=== PATIENT | female | born 1965 | race Caucasian/White ===

== ENCOUNTER → 2017-03-10 | Outpatient (CLI) | payer MEDICAID ==
[~2017-03-10] MED LIST: AC500T PO; ACET-77 PO; ALPR1TAB PO; AMLO10TA4 PO; AMLO5TAB2 PO; ARIPRAZOLE; ASPI-808 PO; AZIT500T2 PO; BACL20TA PO; CELE100C PO; CEPH-38 PO; CIPR100T PO; CIPR500T78 PO; CLIN150C2 PO; CLIN300C3 PO; CLINDAMYCIN; CLON0.1T; CLON0.5T3 PO; CLON1TAB2 PO; CLON1TAB3 PO; CLON2TAB3 PO; CPR500T PO; CYCL10TA9 PO; DIAZ-345 PO; DIAZ5TAB49 PO; DICL75TA2 PO; DICLOFENAC; DOCU-143 PO; DOCU100C37 PO; DXCC100C PO; DXZS2T PO; ENXP40I.4 SC; FAMO20TA5 PO; FENT1PAT9 TD; FLUO40CA12 PO; FURO20TA PO; FURO20TA4 PO; FURO40TA4 PO; HYDR-1231 PO; HYDR-2890 PO; HYDR-3720 PO; HYDR-707 PO; HYDR-757 PO; IBUP-15 PO; IMITREX; Imitrex; KCL20TCR PO; LISI40TA PO; LORA2ORA4 PO; MELO-195 PO; METH4TAB PO; METR500T PO; MINO100C6 PO; MINO50CA2 PO; MORP15TA PO; MPR22T TOP; MUPI22OI TP; NAPR-1071 PO; NAPR-243 PO; NITR-65 PO; ONDA4TAB11 PO; OXC5T PO; OXYC-465 PO; OXYC1TAB16 PO; OXYC5TAB71 PO; PHEN100T26 PO; PRD20T PO; PREG100C PO; PREG100C22 PO; PRM5C60 TP; Propranolol Hcl PO; SENN1TAB76 PO; SUMA100T2 PO; TRM50T PO; ZLP5T PO; [UNRECOGNIZED DRUG - REMARK]; gabapentin
== END ==
LOC: WOUNDCARE 09:54
PROVIDERS: ATTEND Surgery
DX: L89.893 Pressure ulcer of other site, stage 3 (principal); I89.0 Lymphedema, not elsewhere classified; R53.81 Other malaise
CPT/HCPCS: 11042

== ENCOUNTER → 2017-03-17 | Outpatient (CLI) | payer MEDICAID | LOC: WOUNDCARE 10:06 | PROVIDERS: ATTEND Surgery | DX: L89.893 Pressure ulcer of other site, stage 3 (principal); I89.0 Lymphedema, not elsewhere classified; R53.81 Other malaise | CPT/HCPCS: 11042; 87070; 87075; 87077; 87186; 87205 ==

== ENCOUNTER → 2017-03-24 | Outpatient (CLI) | payer MEDICAID | LOC: WOUNDCARE 09:57 | PROVIDERS: ATTEND Surgery | DX: L89.893 Pressure ulcer of other site, stage 3 (principal); I89.0 Lymphedema, not elsewhere classified; R53.81 Other malaise | CPT/HCPCS: 11042 ==

== ENCOUNTER → 2017-03-31 | Outpatient (CLI) | payer MEDICAID | LOC: WOUNDCARE 10:04 | PROVIDERS: ATTEND Surgery | DX: L89.893 Pressure ulcer of other site, stage 3 (principal); I89.0 Lymphedema, not elsewhere classified; R53.81 Other malaise | CPT/HCPCS: 11042 ==

== ENCOUNTER → 2017-04-07 | Outpatient (CLI) | payer MEDICAID | LOC: WOUNDCARE 10:04 | PROVIDERS: ATTEND Surgery | DX: L89.893 Pressure ulcer of other site, stage 3 (principal); I89.0 Lymphedema, not elsewhere classified; R53.81 Other malaise | CPT/HCPCS: 11042 ==

== ENCOUNTER → 2017-04-14 | Outpatient (CLI) | payer MEDICAID | LOC: WOUNDCARE 10:05 | PROVIDERS: ATTEND Surgery | DX: L97.212 Non-pressure chronic ulcer of right calf with fat layer exposed (principal); I87.311 Chronic venous hypertension (idiopathic) with ulcer of right lower extremity; L89.893 Pressure ulcer of other site, stage 3 | CPT/HCPCS: 11042 ==

== ENCOUNTER → 2017-04-21 | Outpatient (CLI) | payer MEDICAID | LOC: WOUNDCARE 09:59 | PROVIDERS: ATTEND Surgery | DX: I87.311 Chronic venous hypertension (idiopathic) with ulcer of right lower extremity (principal); L97.212 Non-pressure chronic ulcer of right calf with fat layer exposed; L89.893 Pressure ulcer of other site, stage 3 | CPT/HCPCS: 11042 ==

== ENCOUNTER → 2017-04-28 | Outpatient (CLI) | payer MEDICAID | LOC: WOUNDCARE 10:02 | PROVIDERS: ATTEND Surgery | DX: I87.311 Chronic venous hypertension (idiopathic) with ulcer of right lower extremity (principal); L97.212 Non-pressure chronic ulcer of right calf with fat layer exposed; L89.893 Pressure ulcer of other site, stage 3 | CPT/HCPCS: 99213 ==

== ENCOUNTER → 2017-12-25 | Outpatient (CLI) | payer MEDICAID ==
[~2017-12-25] MED LIST changes: -AMLO5TAB2 PO; +AMLO5TAB7 PO; +CLON0.5T13 PO; -CLON0.5T3 PO; +CLON1TAB13 PO; -CLON1TAB3 PO
--- NOTE | 2017-12-25 15:32 | Diagnostic Imaging Report ---
PROCEDURE: US Hepatic (Liver). TECHNIQUE: Multiple real-time grayscale images were obtained over the right upper quadrant in various projections. INDICATION: Chronic hepatitis C. FINDINGS: The liver appears to be normal in size at approximately 16 cm. There is some generalized increased echogenicity suggestive of hepatic steatosis. An area of hypoechogenicity in the left lobe is noted approximately 1 cm in size, indeterminate. This could represent an area of focal sparing. The gallbladder is without stones or sludge. No wall thickening is identified. Extrahepatic bile duct is somewhat prominent measuring 9 mm. No intrahepatic ductal dilatation is seen. Pancreas unremarkable. Right kidney is unremarkable. There is no ascites. IMPRESSION: 1. Hepatic steatosis. 2. No evidence of cholelithiasis or acute cholecystitis. The extrahepatic bile duct is mildly dilated at 9 mm. No other significant abnormality is seen. Dictated by: Dictated on workstation # [id number]
== END ==
LOC: RAD 10:08
PROVIDERS: ATTEND Pediatrics
DX: B18.2 Chronic viral hepatitis C (principal); K76.0 Fatty (change of) liver, not elsewhere classified; K83.8 Other specified diseases of biliary tract
CPT/HCPCS: 76705

== ENCOUNTER 2018-01-13 13:10 | Inpatient (IN) | payer MEDICAID ==
[~2018-01-13] VITALS: Ht 172.7 cm; Wt 93.5 kg
[~2018-01-13 13:10] MED LIST changes: -CLON0.1T; +CLON0.1T PO
--- OUTSIDE RECORDS SUMMARY | 2018-01-13 20:20 | XMS REPORT | Clinical Summary ---
Author Author [facility] Organization [facility] Address Unknown Phone Unavailable Care Team Providers Care Single Pointed Operator Name Role Phone PCP Unavailable Allergies Active Allergy Reactions Severity Noted Date Comments Sulfamethoxazole-Trimetho 04/01/2014 prim Penicillins 04/01/2014 Current Medications Prescription Sig. Disp. Refills Start End Date Status Date FLUoxetine (PROZAC) 40 MG Take 80 mg by mouth Active capsule daily. amLODIPine (NORVASC) 2.5 Take 2.5 mg by mouth Active MG tablet daily. pregabalin (LYRICA) 100 Take 100 mg by mouth 3 Active MG capsule (three) times a day. cyclobenzaprine Take 10 mg by mouth 3 Active (FLEXERIL) 10 MG tablet (three) times a day as needed for muscle spasms. diclofenac (VOLTAREN) 25 Take 25 mg by mouth 2 Active MG EC tablet (two) times a day. ARIPiprazole (ABILIFY) 2 Take 2 mg by mouth daily. Active MG tablet SUMAtriptan (IMITREX) 100 Take 100 mg by mouth Active MG tablet every 2 (two) hours as needed for migraine. Active Problems Not on file Social History Tobacco Use Types Packs/Day Years Used Date Never Smoker Smokeless Tobacco: Never Used Alcohol Use Drinks/Week oz/Week Comments No Sex Assigned at Date Recorded Not on file Last Filed Vital Signs Vital Sign Reading Time Taken Blood Pressure 136/62 04/02/2014 1:33 AM [employer]PRES[employer] Pulse 80 04/02/2014 1:33 AM [employer] Temperature 36.3 C (97.3 F) 04/01/2014 9:14 PM [employer]PRES[employer]IVE Respiratory Rate 16 04/01/2014 9:14 PM [employer] REPRES[employer]IVE Oxygen Saturation 100% 04/01/2014 9:14 PM [employer] REPRES[employer]IVE Inhaled Oxygen - - Concentration Weight 65.8 kg (145 lb) 04/01/2014 9:14 PM [employer]PRES[employer]IVE Height 170.2 cm (5' 7.01") 04/01/2014 9:14 PM [employer]ER [employer]TA[employer]PRES[employer]IVE Body Mass Index 22.7 04/01/2014 9:14 PM [employer]USTOMER [employer]TACT REPRESENTATIVE Plan of Treatment Not on file Results Not on filefrom Last 3 Months
--- OUTSIDE RECORDS SUMMARY | 2018-01-13 20:21 | XMS REPORT | Clinical Summary ---
Author Author [facility] Organization [facility] Address Unknown Phone Unavailable Care Team Providers Care Rehabilitation Specialist Name Role Phone Emergency, Nurse RN Unavailable Unavailable Miguelangel Cooley MD Unavailable Maria C Wood MD Unavailable Noemí Eastman RN Unavailable Unavailable Claudine Woody RN Unavailable Unavailable Noemy Navarrete RN Unavailable Unavailable Gloria Nguyen RN Unavailable Unavailable Noemí Ruiz RN Unavailable Unavailable Mita Newton APRN Unavailable Unavailable Cindy Singletary PA-C Unavailable Flor Pickard RN Unavailable Unavailable Felisha Mancuso RN Unavailable Unavailable Marge Mcpherson RN Unavailable Unavailable Isaias Esqueda RN Unavailable Unavailable Aggie Dawson MD Unavailable Chivo Harris MD Unavailable Jimmie Sutherland MD Unavailable Miguelangel Vaughn MD PCP Source Comments Some departments are not documenting in the electronic medical record. If you do not see the information that you expected, contact Release of Information in the Health Information Management department at [phone] for further assistance in locating additional records.[facility] Allergies Active Allergy Reactions Severity Noted Date Comments Sulfamethoxazole-Trimetho RASH Medium 06/05/2014 prim Penicillins RASH Medium 06/05/2014 Has tolerated Keflex in past per patient interview Current Medications Prescription Sig. Disp. Refills Start End Date Status Date FLUoxetine(+) (PROZAC) 40 Take 80 mg by mouth every Active mg capsule morning. sumatriptan (IMITREX) 100 Take 100 mg by mouth as Active mg tablet Needed for Migraine symptoms. fentaNYL (DURAGESIC) 50 Apply 1 Patch to top of Active mcg/hr patch skin as directed every 72 hours clonazePAM (KLONOPIN) 1 Take 1 mg by mouth three Active mg tablet times daily. pregabalin (LYRICA) 150 Take 150 mg by mouth Active mg capsule three times daily. aspirin 81 mg chewable Chew 81 mg by mouth Active tablet daily. Take with food. nabumetone (RELAFEN) 500 Take 500 mg by mouth Active mg tablet twice daily. bethanechol chloride Take 10 mg by mouth three Active (URECHOLINE) 10 mg tablet times daily. Take on an empty stomach at least 1 hour before or 2 hours after food. senna/docusate Take one tablet by mouth 30 tablet 1 01/14/20 Active (SENOKOT-S) 8.6/50 mg daily. 18 tablet amitriptyline HCl Apply thin layer to 50 g 0 01/14/20 Active (AMITRIPTYLINE/GABAPENTIN joints and areas of pain 18 /EMU OIL(#)) 4/4/10 % as needed up to twice daily cloNIDine (CATAPRESS) 0.1 Take one tablet by mouth 3 tablet 0 01/17/20 Active mg tablet at bedtime daily for 3 18 18 days. pregabalin (LYRICA) 100 Take 100 mg by mouth 01/10/20 Discontin mg capsule three times daily. 18 ued cyclobenzaprine Take 10 mg by mouth three 01/10/20 Discontin (FLEXERIL) 10 mg tablet times daily. 18 ued furosemide (LASIX) 20 mg Take 20 mg by mouth daily 01/14/20 Suspended tablet as needed. 18 cloNIDine HCl (CATAPRESS) Take 1 Tab by mouth twice 60 Tab 0 11/26/19 01/14/20 Suspended 0.1 mg tablet daily. Please follow up 15 18 with PCP regarding refilss docusate (COLACE) 100 mg Take 1 Cap by mouth twice 180 Cap 3 11/26/19 01/10/20 Discontin capsule daily. 15 18 ued ferrous sulfate (IRON) Take 650 mg by mouth 01/10/20 Discontin 325 mg (65 mg iron) daily. 18 ued tablet promethazine (PHENERGAN) Take 1 Tab by mouth every 30 Tab 0 01/10/20 01/10/20 Discontin 12.5 mg tablet 6 hours as needed for 15 18 ued Nausea. melatonin 3 mg tab Take 1 Tab by mouth at 02/02/20 01/10/20 Discontin bedtime daily. 15 18 ued aspirin 325 mg tablet Take 1 Tab by mouth 42 Tab 0 02/02/20 Discontin daily. Start this the day 15 18 ued after your final lovenox injection and continue for 6 weeks acetaminophen (TYLENOL) Take 2 Tabs by mouth 100 Tab 0 02/02/20 Discontin 325 mg tablet every 4 hours as needed. 15 18 ued oxyCODONE SR (OXYCONTIN) Earliest Fill Date: 17 Tab 0 02/02/2001/09 Discontin 10 mg tablet 02/01/15 Take 10mg by 15 18 ued mouth two times daily for 5 days then 10mg by mouth once daily for 7 days then stop promethazine (PHENERGAN) Take 25 mg by mouth every 01/14/20 Suspended 25 mg tablet 12 hours as needed for 18 Nausea or Vomiting. tiZANidine (ZANAFLEX) 4 Take 4 mg by mouth twice 01/14/20 Suspended mg tablet daily as needed. 18 cloNIDine (CATAPRESS) 0.1 Take one tablet by mouth 180 tablet 3 01/14/20 Discontin mg tablet at bedtime daily. 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[facility]) 01/25/2015 Osteomyelitis ([facility]) 01/25/2015 Draining postoperative wound 01/23/2015 Postoperative anemia due to acute blood loss 01/09/2015 Hip dislocation, right ([facility]) 10/25/2014 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 10/25/2014 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 Jaycee-prosthetic fracture around prosthetic joint(996.44) 09/23/2014 HTN (hypertension) 09/23/2014 Chronic pain 09/23/2014 Overview: 01/09/2018 2:56 PM Pain Mgmt RN Consult--please see Chart Review Pain in joint, pelvic region and thigh 06/29/2014 Other complications due to internal joint prosthesis 06/29/2014 Hip joint replacement by other means 06/29/2014 Resolved Problems Problem Noted Date Resolved Date Dislocation of hip prosthesis (HCC) 01/07/2015 01/09/2015 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 12/22/2014 Dislocated hip (HCC) 11/22/2014 11/25/2014 Encounters Date Type Specialty Care Team Description 01/13/2018 Procedure visit Anesthesia Pain Venkata Grossman MD Pain of left hip joint (Primary Dx); Arthritis of left hip 01/08/2018 [facility] Irene Chen MD Hip pain - Encounter Sugar Schwartz MD 01/13/2018 Noemy Mott MD Rouse, Michael, DO Haj Mahmoud, Khaldoun, MD 01/08/2018 Procedure Pass 01/08/2018 Procedure Pass from Last 3 Months Immunizations Name Dates Previously Given Next Due Flu Vaccine 12/22/2014 Quadrivalent=>3 Yo (Preservative Free) Hepatitis A vaccine Adult 01/30/2015 IM Family History Medical History Relation Name Comments Arthritis-rheumatoid Mother Cancer Mother Osteoporosis Mother Scoliosis Mother Stroke Mother Relation Name Status Comments Mother Alive Social History Tobacco Use Types Packs/Day Years Used Date Never Smoker Smokeless Tobacco: Never Used Tobacco Cessation: Counseling Given: Yes Alcohol Use Drinks/Week oz/Week Comments Yes one drink per month Sex Assigned at Date Recorded Not on file Last Filed Vital Signs Vital Sign Reading Time Taken Blood Pressure 133/89 01/13/2018 4:14 PM MECHANICAL PROJECT MANAGER Pulse 83 01/13/2018 10:35 AM MECHANICAL PROJECT MANAGER Temperature 36.3 C (97.3 F) 01/13/2018 10:35 AM MECHANICAL PROJECT MANAGER Respiratory Rate 20 05/10/2015 11:28 AM CDT Oxygen Saturation 98% 01/13/2018 4:14 PM MECHANICAL PROJECT MANAGER Inhaled Oxygen - - Concentration Weight 90.7 kg (200 lb) 01/13/2018 3:26 PM MECHANICAL PROJECT MANAGER Height 172.7 cm (5' 8") 01/13/2018 3:26 PM MECHANICAL PROJECT MANAGER Body Mass Index 30.41 01/13/2018 3:26 PM MECHANICAL PROJECT MANAGER Plan of Treatment Health Maintenance Due Date Last Done Comments PHYSICAL (COMPREHENSIVE) 1974 EXAM DTAP/TDAP VACCINES (1 - 1985 Tdap) CERVICAL CANCER SCREENING 1997 BREAST CANCER SCREENING 2007 COLORECTAL CANCER 2017 SCREENING SHINGLES RECOMBINANT 2017 VACCINE (1 of 2) INFLUENZA VACCINE 09/10/2017 12/22/2014 HIV SCREENING Completed 05/10/2015, 01/25/2015 Procedures Procedure Name Priority Date/Time Associated Diagnosis Comments FLUORO GUIDANCE FOR INJ Routine 01/13/2018 Hip pain, left Results for this RAD 4:15 PM MECHANICAL PROJECT MANAGER procedure are in the results section. CHG FLUOROSCOPIC GUIDANCE Routine 01/13/2018 Pain of left hip joint Results for this NEEDLE PLACEMENT ADD ON 2:00 PM MECHANICAL PROJECT MANAGER Arthritis of left hip procedure are in the results section. MI ARTHROCENTESIS Routine 01/13/2018 Pain of left hip joint Results for this ASPIR&/INJ MAJOR JT/BURSA 2:00 PM MECHANICAL PROJECT MANAGER Arthritis of left hip procedure are in the W/O US results section. CBC Routine 01/13/2018 Results for this 5:17 AM MECHANICAL PROJECT MANAGER procedure are in the results section. BASIC METABOLIC PANEL Routine 01/13/2018 Results for this 5:17 AM MECHANICAL PROJECT MANAGER procedure are in the results section. MAGNESIUM Routine 01/12/2018 Results for this 6:31 AM MECHANICAL PROJECT MANAGER procedure are in the results section. COMPREHENSIVE METABOLIC Routine 01/12/2018 Results for this PANEL 6:31 AM MECHANICAL PROJECT MANAGER procedure are in the results section. CBC AND DIFF Routine 01/12/2018 Results for this 6:31 AM MECHANICAL PROJECT MANAGER procedure are in the results section. MAGNESIUM Routine 01/11/2018 Results for this 5:15 AM MECHANICAL PROJECT MANAGER procedure are in the results section. COMPREHENSIVE METABOLIC Routine 01/11/2018 Results for this PANEL 5:15 AM MECHANICAL PROJECT MANAGER procedure are in the results section. CBC AND DIFF Routine 01/11/2018 Results for this 5:15 AM MECHANICAL PROJECT MANAGER procedure are in the results section. MAGNESIUM Routine 01/10/2018 Results for this 4:13 AM MECHANICAL PROJECT MANAGER procedure are in the results section. COMPREHENSIVE METABOLIC Routine 01/10/2018 Results for this PANEL 4:13 AM MECHANICAL PROJECT MANAGER procedure are in the results section. CBC AND DIFF Routine 01/10/2018 Results for this 4:13 AM MECHANICAL PROJECT MANAGER procedure are in the results section. HEPATITIS C VIRAL LOAD Routine 01/09/2018 Results for this PCR QUANT 11:51 AM MECHANICAL PROJECT MANAGER procedure are in the results section. MAGNESIUM Routine 01/09/2018 Results for this 4:39 AM MECHANICAL PROJECT MANAGER procedure are in the results section. COMPREHENSIVE METABOLIC Routine 01/09/2018 Results for this PANEL 4:39 AM MECHANICAL PROJECT MANAGER procedure are in the results section. CBC AND DIFF Routine 01/09/2018 Results for this 4:39 AM MECHANICAL PROJECT MANAGER procedure are in the results section. IRON + BINDING CAPACITY + Routine 01/08/2018 Results for this %SAT+ FERRITIN 10:50 PM MECHANICAL PROJECT MANAGER procedure are in the results section. TSH WITH FREE T4 REFLEX Routine 01/08/2018 Results for this 10:50 PM MECHANICAL PROJECT MANAGER procedure are in the results section. HEMOGLOBIN A1C Routine 01/08/2018 Results for this 10:50 PM MECHANICAL PROJECT MANAGER procedure are in the results section. LIPID PROFILE Routine 01/08/2018 Results for this 10:50 PM MECHANICAL PROJECT MANAGER procedure are in the results section. PHOSPHORUS Routine 01/08/2018 Results for this 10:50 PM MECHANICAL PROJECT MANAGER procedure are in the results section. PTT (APTT) Routine 01/08/2018 Results for this 10:50 PM MECHANICAL PROJECT MANAGER procedure are in the results section. PROTIME INR (PT) Routine 01/08/2018 Results for this 10:50 PM MECHANICAL PROJECT MANAGER procedure are in the results section. OPIATES 300 OR STAT 01/08/2018 Results for this GREATER-URINE RANDOM 8:30 PM MECHANICAL PROJECT MANAGER procedure are in the results section. OXYCODONE URINE SCREEN STAT 01/08/2018 Results for this 8:30 PM MECHANICAL PROJECT MANAGER procedure are in the results section. METHADONE-URINE SCREEN STAT 01/08/2018 Results for this 8:30 PM MECHANICAL PROJECT MANAGER procedure are in the results section. PHENCYCLIDINES-URINE STAT 01/08/2018 Results for this RANDOM 8:30 PM MECHANICAL PROJECT MANAGER procedure are in the results section. COCAINE-URINE RANDOM STAT 01/08/2018 Results for this 8:30 PM MECHANICAL PROJECT MANAGER procedure are in the results section. CANNABINOIDS-URINE RANDOM STAT 01/08/2018 Results for this 8:30 PM MECHANICAL PROJECT MANAGER procedure are in the results section. BENZODIAZEPINES-URINE STAT 01/08/2018 Results for this RANDOM 8:30 PM MECHANICAL PROJECT MANAGER procedure are in the results section. BARBITURATES-URINE RANDOM STAT 01/08/2018 Results for this 8:30 PM MECHANICAL PROJECT MANAGER procedure are in the results section. AMPHETAMINES-URINE RANDOM STAT 01/08/2018 Results for this 8:30 PM MECHANICAL PROJECT MANAGER procedure are in the results section. CULTURE-URINE Routine 01/08/2018 Results for this W/SENSITIVITY 8:30 PM MECHANICAL PROJECT MANAGER procedure are in the results section. URINALYSIS, MICROSCOPIC STAT 01/08/2018 Results for this 4:51 PM MECHANICAL PROJECT MANAGER procedure are in the results section. URINALYSIS DIPSTICK STAT 01/08/2018 Results for this 4:51 PM MECHANICAL PROJECT MANAGER procedure are in the results section. CT ABD/PELV WO CONTRAST STAT 01/08/2018 Results for this 3:49 PM MECHANICAL PROJECT MANAGER procedure are in the results section. CT HEAD WO CONTRAST STAT 01/08/2018 Results for this 3:49 PM MECHANICAL PROJECT MANAGER procedure are in the results section. COMPREHENSIVE METABOLIC STAT 01/08/2018 Results for this PANEL 2:50 PM MECHANICAL PROJECT MANAGER procedure are in the results section. CBC AND DIFF STAT 01/08/2018 Results for this 2:50 PM MECHANICAL PROJECT MANAGER procedure are in the results section. from Last 3 Months Results * FLUORO GUIDANCE FOR INJ RAD (01/13/2018 4:15 PM) Narrative Performed At This order has been auto finalized and does not contain a result. [facility] RAD Performing Organization Address [facility] Phone Number ZENIA [facility] * KU AMB SPINE LARGE JOINT DRAIN/INJECT PROC (01/13/2018 2:00 PM) Narrative Performed At Venkata Grossman MD 01/13/20184:53 PM OTHER OUTSIDE LAB Large Joint Injection Location: hip L hip joint Consent: Consent obtained: written Consent given by: patient Risks discussed: damage to surrounding structures, hyperglycemia, pain and soft tissue reaction Discussed with patient the purpose of the treatment/procedure, other ways of treating my condition, including no treatment/ procedure and the risks and benefits of the alternatives. Patient has decided to proceed with treatment/procedure. [place] Protocol: Relevant documents: relevant documents present and verified Test results: test results available and properly labeled Imaging studies: imaging studies available Required items: required blood products, implants, devices, and special equipment available Site marked: the operative site was marked Patient identity confirmed: Patient identify confirmed verbally with patient. Time out: Immediately prior to procedure a "time out" was called to verify the correct patient, procedure, equipment, customer support engineer and site/side marked as required Procedures Details: Indications: pain Prep: 2% chlorhexidine Guidance: fluoroscopy Needle size: 25 G Approach: anterior Patient tolerance: Patient tolerated the procedure well with no immediate complications. Pressure was applied, and hemostasis was accomplished. Comments: 40mg triamcinolone and 3ml bupivacaine 0.5% injected Performing Organization Address [facility] Phone Number OTHER OUTSIDE LAB * CBC (01/13/2018 5:17 AM) White Blood Cells 6.6 4.5 - 11.0 K/UL MAIN LAB RBC 3.85 (L) 4.0 - 5.0 M/UL KU MAIN LAB Hemoglobin 10.1 (L) 12.0 - 15.0 GM/DL KU MAIN LAB Hematocrit 31.1 (L) 36 - 45 % [facility] MAIN LAB MCV 80.8 80 - 100 FL MAIN LAB MCH 26.1 26 - 34 PG [facility] MAIN LAB MCHC 32.4 32.0 - 36.0 G/DL MAIN LAB RDW 15.9 (H) 11 - 15 % KU MAIN LAB Platelet Count 412 (H) 150 - 400 K/UL MAIN LAB MPV 7.4 7 - 11 FL MAIN LAB Specimen Blood Performing Organization Address [facility] Phone Number MAIN LAB [address] [place] [address] * BASIC METABOLIC PANEL (01/13/2018 5:17 AM) Sodium 135 (L) 137 - 147 MMOL/L KU MAIN LAB Potassium 4.0 3.5 - 5.1 MMOL/L [facility] MAIN LAB Chloride 102 98 - 110 MMOL/L [facility] MAIN LAB CO2 25 21 - 30 MMOL/L [facility] MAIN LAB Anion Gap 8 3 - 12 [facility] MAIN LAB Glucose 114 (H) 70 - 100 MG/DL K[facility] MAIN LAB Blood Urea Nitrogen 13 7 - 25 MG/DL MAIN LAB Creatinine 0.69 0.4 - 1.00 MG/DL MAIN LAB Calcium 9.3 8.5 - 10.6 MG/DL MAIN LAB eGFR Non >60 >60 mL/min [facility] MAIN LAB Comment: The eGFR is not validated for use in drug dosing adjustments.Continue to use estimated creatinine clearance per dosing reference text.Please contact the Clinical Pharmacist for questions. eGFR >60 >60 mL/min KU MAIN LAB Comment: The eGFR is not validated for use in drug dosing adjustments.Continue to use estimated creatinine clearance per dosing reference text.Please contact the Clinical Pharmacist for questions. Specimen Blood Performing Organization Address City/[facility] Phone Number [facility] [address] [place] [address] * CBC AND DIFF (01/12/2018 6:31 AM) Only the most recent of 5 results within the time period is included. White Blood Cells 6.6 4.5 - 11.0 K/UL KU MAIN LAB RBC 3.87 (L) 4.0 - 5.0 M/UL K[facility] MAIN LAB Hemoglobin 10.0 (L) 12.0 - 15.0 GM/DL KU MAIN LAB Hematocrit 31.0 (L) 36 - 45 % KU MAIN LAB MCV 80.1 80 - 100 FL MAIN LAB MCH 25.9 (L) 26 - 34 PG [facility]U MAIN LAB MCHC 32.3 32.0 - 36.0 G/DL K[facility] MAIN LAB RDW 15.7 (H) 11 - 15 % [facility] MAIN LAB Platelet Count 390 150 - 400 K/UL MAIN LAB MPV 7.5 7 - 11 FL KU MAIN LAB Neutrophils 57 41 - 77 % [facility] MAIN LAB Lymphocytes 31 24 - 44 % [facility] MAIN [facility] Monocytes 9 4 - 12 % [facility] MAIN LAB Eosinophils 2 0 - 5 % [facility] MAIN LAB Basophils 1 0 - 2 % [facility] MAIN LAB Absolute Neutrophil Count 3.80 1.8 - 7.0 K/UL KU MAIN LAB Absolute Lymph Count 2.00 1.0 - 4.8 K/UL K[facility] MAIN LAB Absolute Monocyte Count 0.60 0 - 0.80 K/UL K[facility] MAIN LAB Absolute Eosinophil Count 0.10 0 - 0.45 K/UL K[facility] MAIN LAB Absolute Basophil Count 0.00 0 - 0.20 K/UL KU MAIN LAB Specimen Blood Performing Organization Address City/[facility]/Zipcode Phone Number MAIN LAB [address] [place] [address] * MAGNESIUM (01/12/2018 6:31 AM) Only the most recent of 4 results within the time period is included. Magnesium 1.9 1.6 - 2.6 mg/dL KU MAIN LAB Specimen Blood Performing Organization Address City/[facility]/Zipcode Phone Number [facility] [address] [place] [address] * COMPREHENSIVE METABOLIC PANEL (01/12/2018 6:31 AM) Only the most recent of 5 results within the time period is included. Sodium 136 (L) 137 - 147 MMOL/L [facility] MAIN LAB Potassium 4.1 3.5 - 5.1 MMOL/L MAIN LAB Chloride 103 98 - 110 MMOL/L [facility] MAIN LAB Glucose 103 (H) 70 - 100 MG/DL [facility] MAIN LAB Blood Urea Nitrogen 12 7 - 25 MG/DL [facility] MAIN LAB Creatinine 0.79 0.4 - 1.00 MG/DL [facility] MAIN LAB Calcium 9.0 8.5 - 10.6 MG/DL [facility] MAIN LAB Total Protein 8.0 6.0 - 8.0 G/DL [facility] MAIN LAB Total Bilirubin 0.3 0.3 - 1.2 MG/DL K[facility] MAIN LAB Albumin 2.7 (L) 3.5 - 5.0 G/DL [facility] MAIN LAB Alk Phosphatase 119 (H) 25 - 110 U/L K[facility] MAIN LAB AST (SGOT) 18 7 - 40 U/L [facility] MAIN LAB CO2 27 21 - 30 MMOL/L [facility] MAIN LAB ALT (SGPT) 10 7 - 56 U/L [facility] MAIN LAB Anion Gap 6 3 - 12 [facility] MAIN LAB eGFR Non >60 >60 mL/min [facility] MAIN [facility] Comment: The eGFR is not validated for use in drug dosing adjustments.Continue to use estimated creatinine clearance per dosing reference text.Please contact the Clinical Pharmacist for questions. eGFR >60 >60 mL/min [facility] MAIN LAB Comment: The eGFR is not validated for use in drug dosing adjustments.Continue to use estimated creatinine clearance per dosing reference text.Please contact the Clinical Pharmacist for questions. Specimen Blood Performing Organization Address City/[facility]/Zipcode Phone Number [facility] [address] [place] [address] * HEPATITIS C VIRAL LOAD PCR QUANT (01/09/2018 11:51 AM) Hepatitis C PCR HCV RNA Not Detected, <12 <12 IU/ML [facility] Quantitative IU/mL Comment: The test method detects HCV viral load using the Gary RealTime assay. Please correlate results with the clinical status of the patient. Log 10 HCV <1.08 <1.08 IU/mL [facility] Specimen Blood Performing Organization Address City/[facility]/Zipcode Phone Number [facility] [address] [place] [address] * IRON + BINDING CAPACITY + %SAT+ FERRITIN (01/08/2018 10:50 PM) Iron 16 (L) 50 - 160 MCG/DL [facility] MAIN LAB Iron Binding-TIBC 250 (L) 270 - 380 MCG/DL [facility] MAIN [facility] % Saturation 6 (L) 28 - 42 % [facility] MAIN LAB Ferritin 145 10 - 200 NG/ML [facility] MAIN LAB Specimen Blood Performing Organization Address [facility] Phone Number [facility] [address] [place] [address] * TSH WITH FREE T4 REFLEX (01/08/2018 10:50 PM) TSH 0.740 0.35 - 5.00 MCU/ML [facility] MAIN LAB Specimen Blood Performing Organization Address [facility] Phone Number [facility] [address] [place] [address] * PTT (APTT) (01/08/2018 10:50 PM) APTT 20.2 20.0 - 36.0 SEC MAIN LAB Specimen Blood Performing Organization Address [facility] Phone Number MAIN LAB [address] [place] [address] * PROTIME INR (PT) (01/08/2018 10:50 PM) INR 1.4 (H) 0.8 - 1.2 MAIN LAB Specimen Blood Performing Organization Address [facility] Phone Number [facility] MAIN [facility] [address] [place] [address] * PHOSPHORUS (01/08/2018 10:50 PM) Phosphorus 4.1Comment: NOTE NEW REFERENCE 2.0 - 4.5 MG/DL [facility] MAIN LAB RANGES Specimen Blood Performing Organization Address [facility] Phone Number MAIN LAB [address] [place] [address] * HEMOGLOBIN A1C (01/08/2018 10:50 PM) Hemoglobin A1C 5.4 4.0 - 6.0 % [facility] MAIN LAB Comment: The ADA recommends that most patients with type 1 and type 2 diabetes maintain an A1c level <7%. Specimen Blood Performing Organization Address [facility] Phone Number MAIN LAB [address] [place] [address] * LIPID PROFILE (01/08/2018 10:50 PM) Cholesterol 103 <200 MG/DL [facility] MAIN LAB Triglycerides 67 <150 MG/DL [facility] MAIN [facility] HDL 22 (L) >40 MG/DL [facility] MAIN [facility] LDL 65 <100 MG/DL [facility] MAIN [facility] VLDL 13 MG/DL [facility] MAIN [facility] Non HDL Cholesterol 81 MG/DL [facility] MAIN LAB Comment: Calculated non-HDL Cholesterol (non-HDL-C) indirectly measures LDL-C, Lp(a), IDL-C, and VLDL-C.It is a surrogate marker for Apoprotein B.Goal should be less than 130 mg/dL. Specimen Blood Performing Organization Address [facility] Phone Number [facility] [address] [place] [address] * OPIATES 300 OR GREATER-URINE RANDOM (01/08/2018 8:30 PM) Opiates 300 NEG NEG-NEG MAIN LAB Comment: RESULTS WERE OBTAINED BY IMMUNOASSAY AND ARE PRESUMPTIVE ONLY. POSITIVE INDICATES THE PRESENCE OF SUBSTANCE WITH CHARACTERISTICS SIMILAR TO DRUG-DRUG CLASS OR METABOLITE IN CONC. EQUAL TO OR EXCEEDING VALUES LISTED. OPIATES 300 NG/ML Specimen Urine Performing Organization Address [facility] Phone Number [facility] [address] [place] [address] * METHADONE-URINE SCREEN (01/08/2018 8:30 PM) Methadone NEG NEG-NEG MAIN LAB Comment: RESULTS WERE OBTAINED BY IMMUNOASSAY AND ARE PRESUMPTIVE ONLY. POSITIVE INDICATES THE PRESENCE OF SUBSTANCE WITH CHARACTERISTICS SIMILAR TO DRUG-DRUG CLASS OR METABOLITE IN CONC. EQUAL TO OR EXCEEDING VALUES LISTED. METHADONE 300 NG/ML Specimen Urine Performing Organization Address [facility] Phone Number [facility] [address] [place] [address] * PHENCYCLIDINES-URINE RANDOM (01/08/2018 8:30 PM) Phencyclidine (PCP) NEG NEG-NEG MAIN LAB Comment: RESULTS WERE OBTAINED BY IMMUNOASSAY AND ARE PRESUMPTIVE ONLY. POSITIVE INDICATES THE PRESENCE OF SUBSTANCE WITH CHARACTERISTICS SIMILAR TO DRUG-DRUG CLASS OR METABOLITE IN CONC. EQUAL TO OR EXCEEDING VALUES LISTED. PHENCYCLIDINE (PCP)25 NG/ML Specimen Urine - Urine Performing Organization Address [facility] Phone Number [facility] [address] [place] [address] * OXYCODONE URINE SCREEN (01/08/2018 8:30 PM) Oxycodone, Urine NEG NEG-NEG MAIN LAB Comment: RESULTS WERE OBTAINED BY IMMUNOASSAY AND ARE PRESUMPTIVE ONLY. POSITIVE INDICATES THE PRESENCE OF SUBSTANCE WITH CHARACTERISTICS SIMILAR TO DRUG-DRUG CLASS OR METABOLITE IN CONC. EQUAL TO OR EXCEEDING VALUES LISTED. OXYCODONE 300 NG/ML Specimen Urine - Urine Performing Organization Address [facility] Phone Number MAIN LAB [address] [place] [address] * COCAINE-URINE RANDOM (01/08/2018 8:30 PM) Cocaine-Urine NEG NEG-NEG MAIN LAB Comment: RESULTS WERE OBTAINED BY IMMUNOASSAY AND ARE PRESUMPTIVE ONLY. POSITIVE INDICATES THE PRESENCE OF SUBSTANCE WITH

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
--- OUTSIDE RECORDS SUMMARY | 2018-01-13 20:23 | XMS REPORT | Encounter Summary ---
Author Author [facility] Organization [facility] Address Unknown Phone Unavailable Care Team Providers Care Medical Malpractice Paralegal Name Role Phone Emergency, Nurse RN Unavailable [...] Sutherland MD Unavailable Miguelangel Vaughn MD PCP Encounter Details Date Type Department Care Team Description 01/08/2018 Procedure Pass [facility] [address] [place] [address] Social History Tobacco Use Types Packs/Day Years Used Date Never Smoker Smokeless Tobacco: Never Used Alcohol Use Drinks/Week oz/Week Comments Yes one drink per month Sex Assigned at Date Recorded Not on file as of this encounter Functional Status Functional Status Response Date of Assessment Does the patient have a hearing impairment: No 01/08/2018 Does the patient have a visual impairment: No 2015 Does the patient have impaired ambulation: No 2015 Does the patient have an activity of daily living Yes 2015 (ADL) impairment: Does the patient have an instrumental activity of Yes 2015 daily living (IADL) impairment: Cognitive Status Response Date of Assessment Does the patient have a cognitive impairment: No 2015 as of this encounter Plan of Treatment Not on fileas of this encounter Visit Diagnoses Not on filein this encounter
--- OUTSIDE RECORDS SUMMARY | 2018-01-13 20:23 | XMS REPORT | Encounter Summary ---
Author Author [facility] Organization [facility] Address Unknown Phone Unavailable Care Team Providers Care Dog Sitter Name Role Phone Emergency, Nurse RN Unavailable [...] [facility] [address] [place] [address] Social History Tobacco Use Types Packs/Day Years [...]
--- OUTSIDE RECORDS SUMMARY | 2018-01-13 20:23 | XMS REPORT | Encounter Summary ---
Author Author [facility] Organization [facility] Address Unknown Phone Unavailable Care Team Providers Care Cord Splicer Name Role Phone Emergency, Nurse RN Unavailable Unavailable Wyatt Cooley MD Unavailable Maria C Wood MD [...] Harris MD Unavailable Jimmie Sutherland MD Unavailable Wyatt Vaughn MD PCP Reason for Visit * Reason Comments Fall States she fell in the shower today hitting her face and now her hips hurt. * Auth/Cert Status Reason Specialty Diagnoses / Referred By Referred To Procedures Contact Contact Diagnoses Hip pain Falls frequently Encounter Details Date Type Department Care Team Description 01/08/2018 [facility] CARDIAC AND FAMILY Irene Chen MD Hip pain - Encounter MEDICINE PROGRESSIVE CARE [address] 01/13/[address] [place] [address] [place] [address] [phone] Sugar Leone MD [address] [facility] [address] [place] [address] [phone] Noemy Bran MD [address] [facility] [address] [place] [address] [phone] Harjinder Petersen DO [address] [facility] [address] [place] [address] [phone] Randy Morrison MD [address] [facility] [address] [place] [address] [phone] Social History Tobacco Use Types Packs/Day Years Used Date Never Smoker Smokeless Tobacco: Never Used Alcohol Use Drinks/Week oz/Week Comments Yes one drink per month Sex Assigned at Date Recorded Not on file as of this encounter Last Filed Vital Signs Vital Sign Reading Time Taken Blood Pressure 115/80 01/13/2018 10:35 AM SOLAR [employer]OT[employer] ENGINEER Pulse 83 01/13/2018 10:35 AM SOLAR PHOTOVOL[employer]IC SYSTEMS ENGINEER Temperature 36.3 C (97.3 F) 01/13/2018 10:35 AM SOLAR PHOTOVOLTAIC SYSTEMS ENGINEER Respiratory Rate - - Oxygen Saturation 96% 01/13/2018 10:35 AM SOLAR PHOTOVOLTAIC SYSTEMS ENGINEER Inhaled Oxygen - - Concentration Weight 94.7 kg (208 lb 12.4 oz) 01/09/2018 5:30 AM SOLAR PHOTOVOLTAIC SYSTEMS ENGINEER Height 172.7 cm (5' 8") 01/08/2018 8:09 PM SOLAR PHOTOVOLTAIC SYSTEMS ENGINEER Body Mass Index 31.74 01/09/2018 5:30 AM SOLAR PHOTOVOLTAIC SYSTEMS ENGINEER in this encounter Functional Status Functional Status [...] impairment: No 01/13/2018 as of this encounter Medications at Time of Discharge Medication Sig. Disp. Refills Start Date End Date amitriptyline HCl Apply thin layer to 50 g 0 01/13/2018 (AMITRIPTYLINE/GABAPENTIN joints and areas of pain /EMU OIL(#)) 4/4/10 % as needed up to twice daily aspirin 81 mg chewable Chew 81 mg by mouth tablet daily. Take with food. bethanechol chloride Take 10 mg by mouth three (URECHOLINE) 10 mg tablet times daily. Take on an empty stomach at least 1 hour before or 2 hours after food. clonazePAM (KLONOPIN) 1 Take 1 mg by mouth three mg tablet times daily. cloNIDine (CATAPRESS) 0.1 Take one tablet by mouth 3 tablet 0 201701/16/2018 mg tablet at bedtime daily for 3 days. fentaNYL (DURAGESIC) 50 Apply 1 Patch to top of mcg/hr patch skin as directed every 72 hours FLUoxetine(+) (PROZAC) 40 Take 80 mg by mouth every mg capsule morning. nabumetone (RELAFEN) 500 Take 500 mg by mouth mg tablet twice daily. pregabalin (LYRICA) 150 Take 150 mg by mouth mg capsule three times daily. senna/docusate Take one tablet by mouth 30 tablet 1 01/13/2018 (SENOKOT-S) 8.6/50 mg daily. tablet sumatriptan (IMITREX) 100 Take 100 mg by mouth as mg tablet Needed for Migraine symptoms. as of this encounter Progress Notes * Erasmo Mccoy RN - 01/13/2018 6:33 PM SOLAR PHOTOVOLTAIC SYSTEMS ENGINEER Asif Horta discharged on 01/13/2018. . Discharge instructions reviewed with patient. Valuables returned: Personal Items / Valuables: Clothing, Luggage, Eyeglasses/Contacts, Cell Phone, Electronics Electronic Devices: Side Door Worker. Home medications: . Functional assessment at discharge complete: Yes . Patient left unit via transport in wheelchair. Room swept prior to discharge. PIVs removed. AVS signed and placed in chart. Report called to [facility]. * Chraly Rivas, PT - 01/13/2018 3:32 PM SOLAR PHOTOVOLTAIC SYSTEMS ENGINEER PHYSICAL THERAPY NOTE Patient was unavailable for physical therapy. Patient off the floor at this time. Physical therapy will continue to follow and provide intervention as indicated. Therapist: Charly Rivas PT, DPT Date: 01/13/2018 * Marin Loya MD - 01/12/2018 10:31 AM SOLAR PHOTOVOLTAIC SYSTEMS ENGINEER Formatting of this note may be different from the original. General Progress Note Today's Date: 01/12/2018 Name: Asif Horta Age: 52 y.o. Admission Date: 01/08/2018 LOS: 5 Assessment Active Problems: Hip pain Falls frequently Asif Horta is a 52 y.o. 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 Interval changes: Ongoing discharge plan with PT. Pain fluctuating. Anesthesia pain to administer steroid injections tomorrow (holding lovenox). Restarted GUNNER'S MATE nabumetone. 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 - GUNNER'S MATE regimen: Clonazepam 1mg TID, Clonidine 0.1mg BID, Fentanyl patch 50mcg daily, Lyrica 150mg TIDmg, Tizanidine 4mg BID, Nabumetone 500mg TID - CT head in the ED unremarkable - CT A/P without obstruction, inflammation, acute fracture, prior bilateral Girdlestone with chronic bilateral hip effusion and synovitis Plan > continue GUNNER'S MATE Clonazepam, Clonidine, Fentanyl patch, Lyrica > DC Tizanidine > Resume nabumetone at Qday > PT/OT consult > pt made progress on goals but still hasn't walked in years > moderate assist w/ mob and contact assist for transfers > Recommends inpt vs home setting > Anesthesia chronic pain consulted > hold lovenox 01/13 > [facility] for [facility] hip injection tomorrow > cash management clerk consulted > A-K pad to pain max 20min ON and min 20min OFF > start amitriptyline/gabapentin/emu oil(#) 4/4/10% topical cream > lidocaine patches likely unbenefical given depth of pain > Goal is reduce inflammation. consider Diclofenac, additional tylenol. May consider 5-7 day course of meloxicam w/ loading dose on day 1 and 7.5mg the other days, or steroids > could rec short acting opioid. Pt has discussed w/ PCP/prescriber Dr Vaughn , and he did not start one. Starting one now in an acute care setting would not ensure that we are impacting her longwall foreman care unless discussed with Dr. Vaughn and it is known that he is okay with continuing it. > Patient shares with me that at times she may not take clonazepam, clonidine, or cyclobenzaprine daily. But she indicates there is no correlation to days in which she does take them and falls. 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 - has ortho appointment in March #Anxiety #History of substance abuse - Chronically takes Klonopin, will continue to prevent withdrawals - Prozac 80mg - UDS +benzodiazepines (prescribed) Plan > continue GUNNER'S MATE Clonazepam, Clonidine. Patient not ready to decrease or remove clonazepam as it helps with her "bipolar, polypolar moods" > continue GUNNER'S MATE Prozac > consider psychiatry referral outpatient for medication optimization. Consider CBT for pain and/or anxiety out of concern for PTSD and JOSEPH being tied to pain. See conversation on 01/12 progress note #UTI (treated) - suprapubic pain - UA with WBC 2-10, Leuks positive, Nitrite +, few bacteria - Ucx negative - s/p rocephin 3 days #ALISSA (resolved) - Likely pre-renal etiology given history of poor intake - Creatinine 1.05 -> 0.86 after fluids Plan > Encourage PO intake #Decreased appetite with nausea #Dehydration - May be related to Saxenda with increased dose the last 2 week - s/p 1L LR Plan > Hold Saxenda > Encourage PO intake #Microcytic anemia - Patient chronically anemic, on admission Hgb 10.1 - iron studies abnormal, c/w anemic of chronic disease Plan > monitor #Chronic hepatitis C - F/U viral load, med rec #HTN - GUNNER'S MATE clonidine #Constipation - senokot-s PPX: IVF: none Electrolytes: replacing PRN Diet: DIET regular Lines:PIV Drains/Tubes:None Indwelling Urinary Catheter: No DVT:lovenox GI:Protonix PT/OT: Yes Code Status: Full Code Disposition: continue admit to med 3. Per PT recs and patient insurance, SW will require some time to arrange SNF Patient seen and discussed with Dr. Mary Loya MD PGY1 Prelim Resident Pager: [phone] Subjective Asif Horta had NAEO. She says she feels better as her pain seems caught up with. She describes how her pain can get into a "cycle" and she gets stuck in a rut. She tries to limit her pain meds at times until her pain swells up in the cycle. She says that then she gets caught up in crying and trying to manage her pain. She tries to journal on her pain as well. She finds some relief /solace in the magical belief that her pain may be sparing someone else somewhere. She wonders "what she has done" to deserve her pain and comments some on her troubled life and her turn around these last years. She limits her sharing with giving the sense that she may be holding onto emotional pain which may be worsening her physical pain. She does say a few times that she feels her medications may be too much and that she can reduce them; however she finds benefit from "lyrica", and "neurontin", and "klonipin". She is not wanting to change those at this time. We discuss how the klonipin may not be optimal for her case. We discuss how as she ages, even though dosing doesn't change, our bodies/metabolism change how the drugs we take affect us and at some point Klonipin may be dangerous. She says she can understand that and will think on it. We discuss that we will resume her NSAID medication after getting her leg manipulated today and planning for steroid injection tomorrow. We discuss again how we want to treatments "for her" and not "to her". We discuss how she needs to think of her treatment as moving towards a "functional goal" and have a purpose for her and not just to have medications. She denies f/c, chest pain, SOB, stomach pain, numbness, tingling. Objective Medications Scheduled Meds: amitriptyline/gabapentin/emu oil(#) 4/4/10 % topical cream Topical Q8H aspirin chewable tablet 81 mg 81 mg Oral QDAY bethanechol chloride (URECHOLINE) tablet 10 mg 10 mg Oral TID clonazePAM (KLONOPIN) tablet 1 mg 1 mg Oral TID cloNIDine (CATAPRESS) tablet 0.1 mg 0.1 mg Oral BID fentaNYL (DURAGESIC) 50 mcg/hr patch 1 patch 1 patch Transdermal Q72H* fluoxetine (PROZAC) capsule 80 mg 80 mg Oral QDAY melatonin tablet 3 mg 3 mg Oral QHS pregabalin (LYRICA) capsule 150 mg 150 mg Oral TID senna/docusate (SENOKOT-S) tablet 1 tablet 1 tablet Oral BID Continuous Infusions: PRN and Respiratory Meds:acetaminophen Q6H PRN, sumatriptan succinate PRN Vital Signs: Last Filed In 24 Hours Vital Signs: 24 Hour Range BP: 112/74 (01/12 941) Temp: 36.5 C (97.7 F) (01/12 941) Pulse: 89 (01/12 941) Respirations: 16 PER MINUTE (01/12 941) SpO2: 94 % (01/12 941) O2 Delivery: None (Room Air) (01/12 941) SpO2 Pulse: 84 (01/11 2129) BP: (107-134)/(68-97) Temp: [36.5 C (97.7 F)-37.6 C (99.7 F)] Pulse: [77-89] Respirations: [16 PER MINUTE] SpO2: [94 %-99 %] O2 Delivery: None (Room Air) Intake/Output Summary: (Last 24 hours) Intake/Output Summary (Last 24 hours) at 01/12/18 1631 Last data filed at 01/12/18 1500 Gross per 24 hour Intake 1070 ml Output 1200 ml Net -130 ml Stool Occurrence: 1 Physical Exam: Gen: overweight adult female in NAD Neuro: alert; moving all limbs spontaneously; ROM limited in lower extremities due to pain HEENT:eyes open with no discharge; EOMI CV: RR, S1, S2, no murmur, no friction rub Pulmonary: breathing w/o accessory muscles, CTAB, no wheezes/crackles/rhonchi Abd:obese, +bowel sounds, nondistended, nontender, soft without guarding or rebound Ext: no edema; 2+radial and pedalis pulses Lab/Radiology/Other Diagnostic Tests: Recent Labs 01/10/18 0413 01/11/18 0515 01/12/18 0631 NA 138 135* 136* K 4.0 4.0 4.1 CL 104 102 103 CO2 26 25 27 GAP 8 8 6 BUN 13 12 12 CR 0.79 0.74 0.79 GLU 82 95 103* CA 9.1 9.1 9.0 ALBUMIN 2.7* 2.8* 2.7* MG 2.0 2.0 1.9 Recent Labs 01/10/18 0413 01/11/18 0515 01/12/18 0631 WBC 5.1 6.3 6.6 HGB 9.8* 9.5* 10.0* HCT 30.8* 29.6* 31.0* PLTCT 389 374 390 AST 17 21 18 ALT 10 11 10 ALKPHOS 115* 119* 119* Estimated Creatinine Clearance: 102.5 mL/min (based on SCr of 0.79 mg/dL). Vitals: 01/08/18200801/09/18 0530 Weight: 93.2 kg (205 lb 7.5 oz) 94.7 kg (208 lb 12.4 oz) No results for input(s): PHART, PO2ART in the last 72 hours. Invalid input(s): PC02A No pertinent radiology. Associated attestation - Harjinder Hernandez DO - 01/12/2018 6:33 PM SOLAR PHOTOVOLTAIC SYSTEMS ENGINEER ATTESTATION I personally performed the arteaga portions of the E/M visit, discussed case with the resident and concur with the documentation of the history, physical exam, assessment, and treatment plan unless otherwise noted in blue script. Pain-Anes consult for hip pain Working towards placement for SNF Petey Hernandez DO [phone] Imaging directly reviewed/viewed with interpretation reviewed with that of Radiology * Kimberli Ellison OT - 01/12/2018 9:19 AM SOLAR PHOTOVOLTAIC SYSTEMS ENGINEER Formatting of this note may be different from the original. OCCUPATIONAL THERAPY PROGRESS NOTE Patient Name: Asif Horta Room/Bed: [place] [address] Admitting Diagnosis: Past Medical History: Diagnosis Date Aftercare following [...] TMJ (temporomandibular joint syndrome) Wound healing, delayed Mobility Progressive Mobility Level: Active transfer to chair Level of Assistance: Assist X1 Assistive Device: Wheelchair Time Tolerated: 11-30 minutes Activity Limited By: Pain Subjective Pertinent Dx per Physician: h/o R hip s/p (2014) girdlestone, Hepatitis C, Substance Abuse, acute renal failure, osteoperosis, bipolar afffective. Pt presents with (B) hip pain and frequent falls. Pain / Complaints: Patient agrees to participate in therapy Pain Location: Hip (bilateral) Pain Level Current: 9 Objective Psychosocial Status: Willing and Cooperative to Participate Home Living Type of Home: House Bathroom Shower / Tub: Tub/Shower Unit Bathroom Equipment: (homemade shower chair) Home Equipment: Wheelchair-manual Prior Function Level Of [place]: Needed assistance with homemaking Lives With: Significant Other Receives Help From: Significant Other Other Function Comments: Pt reports she dresses independently and stands to shower in the chair but has been having more trouble getting into the tub ADL's Where Assessed: In Bathroom;Wheelchair Grooming Assist: Stand By Assist Grooming Deficits: Increased Time To Complete LE Dressing Assist: Minimal Assist LE Dressing Deficits: Pull Up Over Hips Toileting Assist: Stand By Assist Toileting Deficits: Supervision/Safety;Grab Bar Use Functional Transfer Assist: Minimal Assist Functional Transfer Deficits: Steadying;Supervision/Safety;Increased Time to Complete (wheelchair transfer) Comment: toilet>wheelchair minimal assist using grabbars and increased time to complete, took 2 trials to stand tall enough to transfer over. Pt ambulated to sink for grooming then to recliner; wheelchair>recliner minimal assist. Pt left in recliner with alarm and call light in reach, nursing staff in room. Activity Tolerance Endurance: 2/5 Tolerates 10-20 Minutes Exercise w/Multiple Rests Sitting Balance: 4/5 Moves/Returns Trunkal Midpoint 1-2 Inches in Multiple Planes Comment: Pt reports feeling "off" today, increased pain Cognition Overall Cognitive Status: WFL to Adequately Complete Self Care Tasks Safely Education Goal Formulation: With Patient Assessment Assessment: Decreased ADL Status;Decreased UE Strength;Decreased Endurance; Decreased Self-Care Trans;Decreased High-Level ADLs Comments: Pt's transfers limited by pain. Anticipate quick progression when pain is controlled. Recommend d/c inpatient setting to increase participation in transfers and ADLs. AM-PAC 6 Clicks Daily Activity Inpatient Putting on and taking off regular lower body clothes?: A Little Bathing (Including washing, rinsing, drying): A Little Toileting, which includes using toilet, bedpan, or urinal: A Little Putting on and taking off regular upper body clothing: None Taking care of personal grooming such as brushing teeth: None Eating meals?: None Daily Activity Raw Score: 21 Standardized (t-scale) score: 44.27 CMS 0-100% Score: 32.79 CMS G Code Modifier: CJ Plan OT Frequency: 3-5x/week OT Plan for Next Visit: wheelchair transfers; LE dressing ADL Goals Patient Will Perform LE Dressing: w/ Stand By Assist Patient Will Perform Toileting: w/ Minimum Assist Functional Transfer Goals Pt Will Perform All Functional Transfers: Minimum Assist OT Discharge Recommendations OT Discharge Recommendations: Inpatient Setting Equipment Recommendations: Tub Transfer Bench, Machinist Wood, Sock Chriss Recommend ongoing assistance for: Transfers, Dressing, Bathing Therapist: ARIN Del Rosario/Sonya [id number] Date: 01/12/2018 * Shahnaz Sanders, PT - 01/12/2018 9:00 AM SOLAR PHOTOVOLTAIC SYSTEMS ENGINEER PHYSICAL THERAPY PROGRESS NOTE MOBILITY: Mobility Progressive Mobility Level: Active transfer to chair Level of Assistance: Assist X1 Assistive Device: Wheelchair Time Tolerated: 11-30 minutes Activity Limited By: Pain SUBJECTIVE: Subjective Significant hospital events: PMH: R hip s/p (2015) girdlestone, Hepatitis C, Substance Abuse, acute renal failure, osteoperosis, bipolar afffective. Pt presents with (B) hip pain and frequent falls. Mental / Cognitive Status: Alert;Oriented;To Person;To Place;To Situation Pain: Patient does not rate pain;Before activity;Patient complains of pain; During activity Pain Location: Right;Hip Pain Description: ("grinding") Pain Interventions: Patient agrees to participate in therapy with modifications to session (Provided ice pack at end of session for post-activity) Ambulation Assist: Assist Needed with Mobility-Related ADL's/Ambulation;Primary Wheelchair User Patient Owned Equipment: Roller Walker;Manual Wheelchair Home Situation: Lives h Roommate;Has Assistance Available as Needed Type of Home: House Entry Stairs: Ramp In-Home Stairs: Able to Live on One Level Comments: Pt reports she at baseline is modified indepent at wheelchair level at baseline. Pt is recieving outpatient physcial therapy most recent session x1week ago where she walked a mile in the underwater treadmill. Pt reports her most recent fall was getting into the bathtub from her wheelchair with her boyfriend present, pt states she typically does herself but was too weak and fell. Pt reports a leg length discrepency effecting gait secondary to girdlestone procedure. 2 years since last ambulation with walker. BED MOBILITY/TRANSFERS: Bed Mobility/Transfers Bed Mobility: Supine to Sit: Minimal Assist;Head of Bed Elevated;Use of Rail; Verbal Cues;Requires Extra Time (cues for technique to improve RLE management) Transfer Type: Squat Pivot Transfer: Assistance Level: From;Bed;To;Wheelchair; Contact Guard assist Transfers: Type Of Assistance: For Balance;For Safety Considerations Other Transfer Type: Squat Pivot Other Transfer: Assistance Level: From;Wheelchair;To;Toilet;Minimal Assist Other Transfer: Assistive Device: bathroom grab bars Other Transfer: Type Of Assistance: For Balance;Verbal Cues (facilitation of weight shift; poor tolerance of weight bearing into RLE) End Of Activity Status: On Commode/Toilet;Nursing Notified;Instructed Patient to Request Assist with Mobility;Instructed Patient to Use Call Light ( Occupational Therapy at bedside to assist from toilet) ACTIVITY/EXERCISE: Activity / Exercise Other Exercise: Transfer Training (emphasis on setting up wheelchair/aligning for transfers) EDUCATION: Education Persons Educated: Patient Interventions: Repetition of Instructions Teaching Methods: Verbal Instruction Patient Response: Verbalized Understanding;Return Demonstration Topics: Mobility Progression ASSESSMENT/PROGRESS: Assessment/Progress: Goals are Limited Comments: Patient continues to be greatly limited by pain; complete transfers with minimal to contact guard assistance. AM-PAC 6 Clicks Basic Mobility Inpatient Turning from your back to your side while in a flat bed without using bed rails : None Moving from lying on your back to sitting on the side of a flatbed without using bedrails : A Little Moving to and from a bed to a chair (including a wheelchair): A Little Standing up from a chair using your arms (e.g. wheelchair, or bedside chair): Total To walk in hospital room: Total Climbing 3-5 steps with a railing: Total Raw Score: 13 Standardized (T-scale) Score: 33.99 Basic Mobility CMS 0-100%: 57.65 CMS G Code Modifier for Basic Mobility: CK GOALS: Goals Goal Formulation: With Patient Time For Goal Achievement: 4 days Pt Will Go Supine To/From Sit: Independently Pt Will Transfer Bed/Chair: Independently PLAN: Plan Treatment Interventions: Mobility Training;Strengthening;Balance Activities; Family Training Plan Frequency: 5-7 Days per Week PT Plan for Next Visit: Continue transfer training; trial sit to stand using anterior grab bars or parallel bars; wheelchair mobility/community distances RECOMMENDATIONS: PT Discharge Recommendations PT Discharge Recommendations: Inpatient Setting;versus;Home with Assistance Comments: At current level of function would recommend inpatient setting due to the following barriers: pain, decreased activity tolerance Pt may progress to baseline level of mobility pending length of stay. Will continue to assess and update recommendations as appropriate. Equipment Recommendations: Too early to be determined Recommend ongoing assistance for: Transfers;Bed mobility;Safety concerns Therapist: Shahnaz Sanders PT, DPT Date: 01/12/2018 * Marin Loya MD - 01/11/2018 6:11 AM SOLAR PHOTOVOLTAIC SYSTEMS ENGINEER Formatting of this note may be different from the original. General Progress Note Today's Date: 01/11/2018 Name: Asif Horta Age: 52 y.o. Admission Date: 01/08/2018 LOS: LOS: 1 day Assessment Active Problems: Hip pain Falls frequently Asif Horta is a 52 y.o. 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 Interval changes: Ongoing discharge plan with PT. Pain fluctuating. More drowsy today. Anesthesia pain management eval is pending. 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 - GUNNER'S MATE regimen: Clonazepam 1mg TID, Clonidine 0.1mg BID, Fentanyl patch 50mcg daily, Lyrica 150mg TIDmg, Tizanidine 4mg BID, Nabumetone 500mg TID - CT head in the ED unremarkable - CT A/P without obstruction, inflammation, acute fracture, prior bilateral Girdlestone with chronic bilateral hip effusion and synovitis - s/p 1L LR Plan > continue GUNNER'S MATE Clonazepam, Clonidine, Fentanyl patch, Lyrica > DC Tizanidine > Holding nabumetone > PT/OT consult > pt made progress on goals but still hasn't walked in years > moderate assist w/ mob and contact assist for transfers > Recommends inpt vs home setting > Anesthesia chronic pain consulted > possibility of injection therapy while ortho appt pending > cash management clerk consulted > A-K pad to pain max 20min ON and min 20min OFF > patient refusing amitriptyline/gabapentin/emu oil(#) 4/4/10% topical cream ( emu compound) > lidocaine patches likely unbenefical given depth of pain > Goal is reduce inflammation. consider Diclofenac, additional tylenol. May consider 5-7 day course of meloxicam w/ loading dose on day 1 and 7.5mg the other days, or steroids > patient not taking a short acting opioid, however she has discussed at length with her persistent opioid prescriber her current quality of life and he has not started one. Starting one now in an acute care setting would not ensure that we are impacting her custodial care unless discussed with Dr. Vaughn and it is known that he is okay with continuing it. > Patient shares with me that at times she may not take clonazepam, clonidine, or cyclobenzaprine daily. But she indicates there is no correlation to days in which she does take them and falls. 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 - has ortho appointment in March #Anxiety #History of substance abuse - Chronically takes Klonopin, will continue to prevent withdrawals - Prozac 80mg - UDS +benzodiazepines (prescribed) Plan > continue GUNNER'S MATE Clonazepam, Clonidine > continue GUNNER'S MATE Prozac > consider psychiatry referral outpatient #UTI (treated) - suprapubic pain - UA with WBC 2-10, Leuks positive, Nitrite +, few bacteria - Ucx negative - s/p rocephin 3 days #ALISSA (resolved) - Likely pre-renal etiology given history of poor intake - Creatinine 1.05 -> 0.86 after fluids Plan > Encourage PO intake #Decreased appetite with nausea #Dehydration - May be related to Saxenda with increased dose the last 2 week - s/p 1L LR Plan > Hold Saxenda > Encourage PO intake #Microcytic anemia - Patient chronically anemic, on admission Hgb 10.1 - iron studies abnormal, c/w anemic of chronic disease Plan > monitor #Chronic hepatitis C - F/U viral load, med rec #HTN - GUNNER'S MATE clonidine #Constipation - senokot-s PPX: IVF: none Electrolytes: replacing PRN Diet: DIET regular Lines:PIV Drains/Tubes:None Indwelling Urinary Catheter: No DVT:lovenox GI:Protonix PT/OT: Yes Code Status: Full Code Disposition: continue admit to med 3. Per PT recs and patient insurance, SW will require some time to arrange SNF Patient seen and discussed with Dr. Pantera Loya MD PGY1 Prelim Resident Pager: [phone] Subjective Asif Horta had NAEO. She has made progress with PT. She says her L hip pain is worse. She could not get up this morning. She says her anxiety and worry is the same/ok. She has good PO intake, urination. She reports a little constipation. She denies f/c, chest pain, stomach pain, numbness. She endorses fatigue and weakness in her legs. Objective Medications Scheduled Meds: amitriptyline/gabapentin/emu oil(#) 4/4/10 % topical cream Topical Q8H aspirin chewable tablet 81 mg 81 mg Oral QDAY bethanechol chloride (URECHOLINE) tablet 10 mg 10 mg Oral TID clonazePAM (KLONOPIN) tablet 1 mg 1 mg Oral TID cloNIDine (CATAPRESS) tablet 0.1 mg 0.1 mg Oral BID docusate (COLACE) capsule 100 mg 100 mg Oral BID enoxaparin (LOVENOX) syringe 40 mg 40 mg Subcutaneous QDAY fentaNYL (DURAGESIC) 50 mcg/hr patch 1 patch 1 patch Transdermal Q72H* fluoxetine (PROZAC) capsule 80 mg 80 mg Oral QDAY melatonin tablet 3 mg 3 mg Oral QHS pregabalin (LYRICA) capsule 150 mg 150 mg Oral TID Continuous Infusions: PRN and Respiratory Meds:acetaminophen Q6H PRN, sumatriptan succinate PRN Vital Signs: Last Filed In 24 Hours Vital Signs: 24 Hour Range BP: 121/77 (01/11 537) Temp: 36.5 C (97.7 F) (01/11 537) Pulse: 81 (01/11 537) Respirations: 18 PER MINUTE (01/11 537) SpO2: 95 % (01/11 537) O2 Delivery: None (Room Air) (01/11 537) BP: (107-121)/(72-85) Temp: [36.5 C (97.7 F)-37.1 C (98.8 F)] Pulse: [81-91] Respirations: [18 PER MINUTE] SpO2: [95 %-97 %] O2 Delivery: None (Room Air) Intake/Output Summary: (Last 24 hours) Intake/Output Summary (Last 24 hours) at 01/11/18 0611 Last data filed at 01/11/18 0328 Gross per 24 hour Intake 540 ml Output 900 ml Net -360 ml Physical Exam: Gen: overweight adult female in NAD Neuro: alert; moving all limbs spontaneously; ROM limited in lower extremities due to pain HEENT:eyes open with no discharge; EOMI CV: RR, S1, S2, no murmur, no friction rub Pulmonary: breathing w/o accessory muscles, CTAB, no wheezes/crackles/rhonchi Abd:obese, +bowel sounds, nondistended, nontender, soft without guarding or rebound Ext: no edema; 2+radial and pedalis pulses Lab/Radiology/Other Diagnostic Tests: Recent Labs 01/08/18 1450 01/08/18 2250 01/09/18 0439 01/10/18 0413 NA 139 -- 140 138 K 4.3 -- 3.8 4.0 CL 104 -- 106 104 CO2 25 -- 26 26 GAP 10 -- 8 8 BUN 20 -- 18 13 CR 1.05* -- 0.86 0.79 GLU 100 -- 89 82 CA 9.3 -- 9.0 9.1 ALBUMIN 3.0* -- 2.7* 2.7* MG -- -- 2.1 2.0 PO4 -- 4.1 -- -- HGBA1C -- 5.4 -- -- TSH -- 0.740 -- -- Recent Labs 01/08/18 1450 01/08/18 2250 01/09/18 0439 01/10/18 0413 WBC 6.3 -- 4.6 5.1 HGB 10.1* -- 9.2* 9.8* HCT 31.0* -- 28.9* 30.8* PLTCT 405* -- 406* 389 INR -- 1.4* -- -- PTT -- 20.2 -- -- AST 26 -- 19 17 ALT 15 -- 11 10 ALKPHOS 140* -- 117* 115* Estimated Creatinine Clearance: 102.5 mL/min (based on SCr of 0.79 mg/dL). Vitals: 01/08/18200801/09/18 0530 Weight: 93.2 kg (205 lb 7.5 oz) 94.7 kg (208 lb 12.4 oz) No results for input(s): PHART, PO2ART in the last 72 hours. Invalid input(s): PC02A No pertinent radiology. Associated attestation - Noemy Mott MD - 01/11/2018 8:32 PM SOLAR PHOTOVOLTAIC SYSTEMS ENGINEER Formatting of this note may be different from the original. ATTESTATION I personally performed the arteaga portions of the E/M visit, discussed case with resident and concur with resident documentation of history, physical exam, assessment, and treatment plan unless otherwise noted. Pursue inpt rehab tomorrow Pain anesthesia to see pt tomorrow to evaluate augmentation of current pain regiment Pt's outpt opioid prescriber is comfortable with Duragesic patch but not escalation. Pt with H/O of significant substance abuse. Now with sobriety 2 years per pt Outpt Ortho appt already scheduled. Pt hoping to pursue hip replacements Staff name: Noemy Mott MD Date: 01/11/2018 * Wei Barrow, PT - 01/10/2018 1:38 PM SOLAR PHOTOVOLTAIC SYSTEMS ENGINEER PHYSICAL THERAPY PROGRESS NOTE MOBILITY: Mobility Progressive Mobility Level: Active transfer to chair Level of Assistance: Assist X1 Assistive Device: None Time Tolerated: 11-30 minutes Activity Limited By: Pain SUBJECTIVE: Subjective Significant hospital events: PMH: R hip s/p (2014) girdlestone, Hepatitis C, Substance Abuse, acute renal failure, osteoperosis, bipolar afffective. Pt presents with (B) hip pain and frequent falls. Mental / Cognitive Status: Alert;Oriented;To Person;To Place;To Situation Persons Present: RehabTechnician;Significant Other Pain: Patient complains of pain;Before activity;09/19 Pain Location: Right;Hip Pain Interventions: Patient agrees to participate in therapy;Treatment altered to patient's pain tolerance;Nursing staff notified of patient's pain level; Patient assisted into position of comfort Ambulation Assist: Assist Needed with Mobility-Related ADL's/Ambulation;Primary Wheelchair User Patient Owned Equipment: Roller Walker;Manual Wheelchair Home Situation: Lives [facility] Roommate;Has Assistance Available as Needed Type of Home: House Entry Stairs: Ramp In-Home Stairs: Able to Live on One Level Comments: Pt reports she at baseline is modified indepent at wheelchair level at baseline. Pt is recieving outpatient physcial therapy most recent session x1week ago where she walked a mile in the underwater treadmill. Pt reports her most recent fall was getting into the bathtub from her wheelchair with her boyfriend present, pt states she typically does herself but was too weak and fell. Pt stated it had been months since she has walked with a walker ROM: ROM ROM Comments: LLE WFL STRENGTH: Strength Overall Strength: Generalized Weakness BED MOBILITY/TRANSFERS: Bed Mobility/Transfers Bed Mobility: Supine to Sit: Moderate Assist;Assist with B LE (& assist with scooting to edge of bed for fleet on ground) Transfer Type: Horizontal Transfer: Assistance Level: Minimal Assist (Contact guard assist) Transfer: Assistive Device: (Wheelchair) Transfers: Type Of Assistance: For Safety Considerations End Of Activity Status: Up in Chair;Nursing Notified;Instructed Patient to Request Assist with Mobility;Instructed Patient to Use Call Light (Chair alarm activated) Comments: Pt performs lateral transfer using LUE on L arm rest on wheelchair and pushing through LLE to clear bottom and slide into wheelchair. Pt able to complete without cueing, contact guard for safety only. Pt demonstrates improvement with transfers this date. BALANCE: Balance Sitting Balance: Dynamic Sitting Balance;No UE Support;Standby Assist GAIT: Gait Comments: Pt reports a leg length discrepency effecting gait secondary to girdlestone procedure. 2 years since last ambulation with walker. ACTIVITY/EXERCISE: Activity / Exercise Sit Edge Of Bed: 10 minutes Sit Edge Of Bed Assist: Stand By Assist EDUCATION: Education Persons Educated: Patient Interventions: Repetition of Instructions;Demonstration Provided Teaching Methods: Verbal Instruction Patient Response: Verbalized Understanding;Return Demonstration Topics: Plan/Goals of PT Interventions;Mobility Progression;Importance of Increasing Activity;Recommend Continued Therapy ASSESSMENT/PROGRESS: Assessment/Progress Impaired Mobility Due To: Pain Impaired Strength Due To: Pain Assessment/Progress: Goals are Limited AM-PAC 6 Clicks Basic Mobility Inpatient Turning from your back to your side while in a flat bed without using bed rails : None Moving from lying on your back to sitting on the side of a flatbed without using bedrails : None Moving to and from a bed to a chair (including a wheelchair): A Little Standing up from a chair using your arms (e.g. wheelchair, or bedside chair): Total To walk in hospital room: Total Climbing 3-5 steps with a railing: Total Raw Score: 14 Standardized (T-scale) Score: 35.55 Basic Mobility CMS 0-100%: 53.86 CMS G Code Modifier for Basic Mobility: CK Pt demonstrates improvement with transfers this date; limited by LE pain. Pt requiring moderate assist for bed mobility (pt reports boyfriend assists with this at home) and contact guard assist for transfer to/from wheelchair. GOALS: Goals Goal Formulation: With Patient Time For Goal Achievement: 4 days Pt Will Go Supine To/From Sit: Independently Pt Will Transfer Bed/Chair: Independently PLAN: Plan Treatment Interventions: Mobility Training;Strengthening;Balance Activities; Family Training Plan Frequency: 5-7 Days per Week RECOMMENDATIONS: PT Discharge Recommendations PT Discharge Recommendations: Inpatient;versus;Home with Assistance Equipment Recommendations: Too early to be determined Comments: At current level of function would recommend inpatient setting due to the following barriers: pain, decreased activity tolerance Pt may progress to baseline level of mobility pending length of stay. Will continue to assess and update recommendations as appropriate. Recommend ongoing assistance for: Transfers;Bed mobility;Safety concerns Therapist: Wei Barrow, PT Date: 01/10/2018 * Marin Loya MD - 01/10/2018 6:28 AM SOLAR PHOTOVOLTAIC SYSTEMS ENGINEER Formatting of this note may be different from the original. General Progress Note Today's Date: 01/10/2018 Name: Asif Horta Age: 52 y.o. Admission Date: 01/08/2018 LOS: LOS: 1 day Assessment Active Problems: Hip pain Falls frequently Asif Horta is a 52 y.o. female w/ R hip replacement c/b MRSA osteomyelitis s/p Girdlestone in January 2015 (had a long course of antibiotics which was completed March 2015), chronic hepatitis C, chronic bilateral hip pain/arthritis, anxiety, HTN, substance abuse (meth, marijuana) clean x2 years, who presents with chronic pain, polypharmacy, anxiety and admitted for UTI and ALISSA. Interval changes: Discharge planning for inpt setting w/ PT. Pain stable with stopping tizanidine and appears more alert today. Anesthesia pain management eval is pending. 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 - GUNNER'S MATE regimen: Clonazepam 1mg TID, Clonidine 0.1mg BID, Fentanyl patch 50mcg daily, Lyrica 150mg TIDmg, Tizanidine 4mg BID, Nabumetone 500mg TID - CT head in the ED unremarkable - CT A/P without obstruction, inflammation, acute fracture, prior bilateral Girdlestone with chronic bilateral hip effusion and synovitis - s/p 1L LR Plan > continue GUNNER'S MATE Clonazepam, Clonidine, Fentanyl patch, Lyrica > DC Tizanidine > Abx as below > PT/OT consult. x2 assist transfers. Recommends inpt setting > Anesthesia chronic pain consulted > possibility of injection therapy while ortho appt pending > cash management clerk consulted > A-K pad to pain max 20min ON and min 20min OFF > patient refusing amitriptyline/gabapentin/emu oil(#) 4/4/10% topical cream ( emu compound) > lidocaine patches likely unbenefical given depth of pain > Goal is reduce inflammation. consider Diclofenac, additional tylenol. May consider 5-7 day course of meloxicam w/ loading dose on day 1 and 7.5mg the other days, or steroids > patient not taking a short acting opioid, however she has discussed at length with her persistent opioid prescriber her current quality of life and he has not started one. Starting one now in an acute care setting would not ensure that we are impacting her custodial care unless discussed with Dr. Vaughn and it is known that he is okay with continuing it. > Patient shares with me that at times she may not take clonazepam, clonidine, or cyclobenzaprine daily. But she indicates there is no correlation to days in which she does take them and falls. 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 - has ortho appointment in March #Anxiety #History of substance abuse - Chronically takes Klonopin, will continue to prevent withdrawals - Prozac 80mg - UDS +benzodiazepines (prescribed) Plan > continue GUNNER'S MATE Clonazepam, Clonidine > continue GUNNER'S MATE Prozac > consider psychiatry referral outpatient #UTI - suprapubic pain - UA with WBC 2-10, Leuks positive, Nitrite +, few bacteria - Ucx negative Plan > Rocephin (start 01/08) #ALISSA (resolved) - Likely pre-renal etiology given history of poor intake - Creatinine 1.05 -> 0.86 after fluids Plan > Encourage PO intake #Decreased appetite with nausea #Dehydration - May be related to Saxenda with increased dose the last 2 week - s/p 1L LR Plan > Hold Saxenda #Chronic hepatitis C - F/U viral load, med rec #HTN - GUNNER'S MATE clonidine #Microcytic anemia - Patient chronically anemic, on admission Hgb 10.1 - iron studies abnormal, c/w anemic of chronic disease Plan > monitor PPX: IVF: none Electrolytes: replacing PRN Diet: DIET regular Lines:PIV Drains/Tubes:None Indwelling Urinary Catheter: No DVT:lovenox GI:Protonix PT/OT: Yes Code Status: Full Code Disposition: continue admit to med 3. Per PT recs and patient insurance, SW will require some time to arrange SNF Patient seen and discussed with Dr. Pantera Loya MD PGY1 Prelim Resident Pager: [phone] Subjective Asif Horta had NAEO. She endorses feeling more alert/attentive today. She reports her pain is not really with her since she hasn't really woken/ gotten up yet today. But she anticipates it to be the same. She expresses concern for her pain, relaying how she used to be very active and take mountain runs. She seems to still have disappointment/regret/saddness/nonacceptance of her leg surgery/pain/outcome. We discuss how people live with pain or various health issues. And how many aren't ever "solved" or "totally removed" but that patients have to "accept" and "cope" and "adjust expectations". She says she likes to do water activity/aerobics and that could be a good expectation. She does say "I can't give up". She makes a joke that if she would she should just work at "[employer]". We applaud the water aerobics and discuss other non-pharm interventions and pharm options, like anesthesia pain, accupuncture, ice/heat, PT, stretching, weight loss. She does endorse weakness, and DAVIS. She denies f/c, SEGAL, cp, dysuria, constipation. Objective Medications Scheduled Meds: amitriptyline/gabapentin/emu oil(#) 4/4/10 % topical cream Topical Q8H aspirin chewable tablet 81 mg 81 mg Oral QDAY bethanechol chloride (URECHOLINE) tablet 10 mg 10 mg Oral TID cefTRIAXone (ROCEPHIN) IVP 1 g 1 g Intravenous Q24H* clonazePAM (KLONOPIN) tablet 1 mg 1 mg Oral TID cloNIDine (CATAPRESS) tablet 0.1 mg 0.1 mg Oral BID docusate (COLACE) capsule 100 mg 100 mg Oral BID enoxaparin (LOVENOX) syringe 40 mg 40 mg Subcutaneous QDAY fentaNYL (DURAGESIC) 50 mcg/hr patch 1 patch 1 patch Transdermal Q72H* fluoxetine (PROZAC) capsule 80 mg 80 mg Oral QDAY melatonin tablet 3 mg 3 mg Oral QHS pregabalin (LYRICA) capsule 150 mg 150 mg Oral TID Continuous Infusions: PRN and Respiratory Meds:acetaminophen Q6H PRN, sumatriptan succinate PRN Vital Signs: Last Filed In 24 Hours Vital Signs: 24 Hour Range BP: 121/90 (01/10 513) Temp: 36.6 C (97.8 F) (01/10 513) Pulse: 79 (01/10 513) Respirations: 19 PER MINUTE (01/10 513) SpO2: 96 % (01/10 513) O2 Delivery: None (Room Air) (01/10 513) BP: (109-125)/(76-90) Temp: [36.6 C (97.8 F)-37.2 C (98.9 F)] Pulse: [75-86] Respirations: [16 PER MINUTE-19 PER MINUTE] SpO2: [94 %-99 %] O2 Delivery: None (Room Air) Intake/Output Summary: (Last 24 hours) Intake/Output Summary (Last 24 hours) at 01/10/18627 Last data filed at 01/09/18 2142 Gross per 24 hour Intake 1170 ml Output 900 ml Net 270 ml Physical Exam: Gen: overweight adult female in NAD Neuro: alert; moving all limbs spontaneously; 3+ strength in hips; ROM limited in lower extremities due to pain HEENT:eyes open with no discharge; EOMI CV: RR, S1, S2, no murmur, no friction rub Pulmonary: breathing w/o accessory muscles, CTAB, no wheezes/crackles/rhonchi Abd:obese, +bowel sounds, nondistended, nontender, soft without guarding or rebound Skin:no rashes; dry and warm Ext: no edema; 2+radial and pedalis pulses Psych: appears happier, interactive, made jokes Lab/Radiology/Other Diagnostic Tests: Recent Labs 01/08/18 1450 01/08/18 2250 01/09/18 0439 01/10/18 0413 NA 139 -- 140 138 K 4.3 -- 3.8 4.0 CL 104 -- 106 104 CO2 25 -- 26 26 GAP 10 -- 8 8 BUN 20 -- 18 13 CR 1.05* -- 0.86 0.79 GLU 100 -- 89 82 CA 9.3 -- 9.0 9.1 ALBUMIN 3.0* -- 2.7* 2.7* MG -- -- 2.1 2.0 PO4 -- 4.1 -- -- HGBA1C -- 5.4 -- -- TSH -- 0.740 -- -- Recent Labs 01/08/18 1450 01/08/18 2250 01/09/18 0439 01/10/18 0413 WBC 6.3 -- 4.6 5.1 HGB 10.1* -- 9.2* 9.8* HCT 31.0* -- 28.9* 30.8* PLTCT 405* -- 406* 389 INR -- 1.4* -- -- PTT -- 20.2 -- -- AST 26 -- 19 17 ALT 15 -- 11 10 ALKPHOS 140* -- 117* 115* Estimated Creatinine Clearance: 102.5 mL/min (based on SCr of 0.79 mg/dL). Vitals: 01/08/18200801/09/18 0530 Weight: 93.2 kg (205 lb 7.5 oz) 94.7 kg (208 lb 12.4 oz) No results for input(s): PHART, PO2ART in the last 72 hours. Invalid input(s): PC02A No pertinent radiology. Associated attestation - Noemy Mott MD - 01/10/2018 9:42 PM SOLAR PHOTOVOLTAIC SYSTEMS ENGINEER Formatting of this note may be different from the original. ATTESTATION I personally performed the arteaga portions of the E/M visit, discussed case with resident and concur with resident documentation of history, physical exam, assessment, and treatment plan unless otherwise noted. Staff name: Noemy Mott MD Date: 01/10/2018 * Elvia Kelsey RN - 01/09/2018 11:43 PM SOLAR PHOTOVOLTAIC SYSTEMS ENGINEER Pt is lethargic and tearful this evening. This is patients baseline per report from day RN * Kimberli Ellison, BRYANT - 01/09/2018 2:30 PM SOLAR PHOTOVOLTAIC SYSTEMS ENGINEER Formatting of this note may be different from the original. OCCUPATIONAL THERAPY ASSESSMENT NOTE Patient Name: Asif Horta Room/Bed: [place] [address] Admitting Diagnosis: Past Medical History: Diagnosis Date Aftercare following [...] TMJ (temporomandibular joint syndrome) Wound healing, delayed Mobility Progressive Mobility Level: Active transfer to chair Level of Assistance: Assist X2 Assistive Device: Wheelchair Time Tolerated: 11-30 minutes Activity Limited By: Pain Subjective Pertinent Dx per Physician: h/o R hip s/p (2014) girdlestone, Hepatitis C, Substance Abuse, acute renal failure, osteoperosis, bipolar afffective. Pt presents with (B) hip pain and frequent falls. Precautions: Falls;Isolation Pain / Complaints: Patient agrees to participate in therapy Pain Location: Hip (bilateral) Objective Psychosocial Status: Willing and Cooperative to Participate Persons Present: RehabTechnician Home Living Type of Home: House Bathroom Shower / Tub: Tub/Shower Unit Bathroom Equipment: (homemade shower chair) Home Equipment: Wheelchair-manual Prior Function Level Of [place]: Needed assistance with homemaking Lives With: Significant Other Receives Help From: Significant Other Other Function Comments: Pt reports she dresses independently and stands to shower in the chair but has been having more trouble getting into the tub ADL's Where Assessed: Wheelchair (seated at sink) Grooming Assist: Minimal Assist Grooming Deficits: Setup;Increased Time To Complete LE Dressing Assist: Maximum Assist LE Dressing Deficits: Don/Doff L Sock;Don/Doff R Sock Functional Transfer Assist: Moderate Assist (x2) Functional Transfer Deficits: Steadying;Supervision/Safety (wheelchair transfer) Comment: supine>sit stand by assist, bed>wheelchair stand-pivot transfer with moderate assist x2, pt ambulated self around room in wheelchair and completed grooming at sink with supply setup. Pt left in wheelchair with alarm and needs in reach. Confirmed with RN that pt was able to be left in wheelchair with only one arm rest, pt reports the other arm rest was left at home. Pt c/o dizzinee when sitting that subsided. Activity Tolerance Endurance: 3/5 Tolerates 25-30 Minutes Exercise w/Multiple Rests Sitting Balance: 5/5 Moves/Returns Trunkal Midpoint in All Planes > 2 Inches Comment: dizziness with supine>sit that subsided Cognition Overall Cognitive Status: Impaired Expression: Increased Time for Expression Social Interaction: Increased Time to Adjust Orientation: Alert & Oriented x3 Attention: Awake/Alert Education Persons Educated: Patient Topics: Role of OT, Goals for Therapy Goal Formulation: With Patient Assessment Assessment: Decreased ADL Status;Decreased UE Strength;Decreased Cognition; Decreased Endurance;Decreased Self-Care Trans;Decreased High-Level ADLs Comments: Pt limited by pain and weakness, as well as decreased cognitive status. Recommend d/c to inpatient for safety with ADLs and transfers. AM-PAC 6 Clicks Daily Activity Inpatient Putting on and taking off regular lower body clothes?: A Lot Bathing (Including washing, rinsing, drying): A Lot Toileting, which includes using toilet, bedpan, or urinal: A Lot Putting on and taking off regular upper body clothing: None Taking care of personal grooming such as brushing teeth: None Eating meals?: None Daily Activity Raw Score: 18 Standardized (t-scale) score: 38.66 CMS 0-100% Score: 46.65 CMS G Code Modifier: CK Plan OT Frequency: 3-5x/week OT Plan for Next Visit: wheelchair/commode transfers, LE dressing ADL Goals Patient Will Perform LE Dressing: w/ Stand By Assist Patient Will Perform Toileting: w/ Minimum Assist Functional Transfer Goals Pt Will Perform All Functional Transfers: Minimum Assist OT Discharge Recommendations OT Discharge Recommendations: Inpatient Setting Equipment Recommendations: Tub Transfer Bench, Machinist Wood, Sock Chriss Recommend ongoing assistance for: Transfers, Dressing, Toileting, Bathing Therapist: JAISON [place] [id number] Date: 01/09/2018 * Cassie Chi, PT - 01/09/2018 10:33 AM SOLAR PHOTOVOLTAIC SYSTEMS ENGINEER PHYSICAL THERAPY ASSESSMENT MOBILITY: Mobility Progressive Mobility Level: Sit on edge of bed Level of Assistance: Stand by assistance Assistive Device: None Time Tolerated: 11-30 minutes Activity Limited By: Pain SUBJECTIVE: Subjective Significant hospital events: PMH: R hip s/p (2015) girdlestone, Hepatitis C, Substance Abuse, acute renal failure, osteoperosis, bipolar afffective. Pt presents with (B) hip pain and frequent falls. Mental / Cognitive Status: Alert;Oriented;To Person;To Place;To Situation Persons Present: Provider Pain: Patient complains of pain;Before activity;08/19 Pain Location: Right;Hip Comments: Pt demonstrates unclear/contradictory response to subjective at times. Ambulation Assist: Assist Needed with Mobility-Related ADL's/Ambulation;Primary Wheelchair User Patient Owned Equipment: Roller Walker;Manual Wheelchair Home Situation: Lives wth Roommate;Has Assistance Available as Needed Type of Home: House Entry Stairs: Ramp In-Home Stairs: Able to Live on One Level Comments: Pt reports she at baseline is modified indepent at wheelchair level at baseline. Pt is recieving outpatient physcial therapy most recent session x1week ago where she walked a mile in the underwater treadmill. Pt reports her most recent fall was getting into the bathtub from her wheelchair with her boyfriend present, pt states she typically does herself but was too weak and fell. Pt stated it had been months since she has walked with a walker ROM: ROM ROM Comments: unable to assess, will follow up. STRENGTH: Strength Strength Comment: unable to assess, will follow up POSTURE/NEURO: Posture / Neurological Posture/Neuro Comments: Pt denies decreased sensation L from RLE BED MOBILITY/TRANSFERS: Bed Mobility/Transfers Bed Mobility: Supine to Sit: Standby Assist;Bed Flat;Requires Extra Time Comments: Per nurse, pt required assist x2 to/from commode. End Of Activity Status: Sitting at Edge of Bed;Nursing Notified Comments: Pt sitting edge of bed with provider, PT discussed with bedside nurse who reports she would enter room when providers left room. BALANCE: Balance Sitting Balance: Dynamic Sitting Balance;No UE Support;Standby Assist GAIT: Gait Comments: Pt reports a leg length discrepency effecting gait secondary to girdlestone procedure. Months since last ambulation with walker. ACTIVITY/EXERCISE: Activity / Exercise Sit Edge Of Bed: 15 minutes Sit Edge Of Bed Assist: Stand By Assist EDUCATION: Education Persons Educated: Patient Interventions: Repetition of Instructions;Demonstration Provided Teaching Methods: Verbal Instruction Patient Response: Verbalized Understanding;Return Demonstration Topics: Plan/Goals of PT Interventions;Mobility Progression;Importance of Increasing Activity;Recommend Continued Therapy ASSESSMENT/PROGRESS: Assessment/Progress Impaired Mobility Due To: Pain Impaired Strength Due To: Pain Assessment/Progress: Goals are Limited AM-PAC 6 Clicks Basic Mobility Inpatient Turning from your back to your side while in a flat bed without using bed rails : None Moving from lying on your back to sitting on the side of a flatbed without using bedrails : None Moving to and from a bed to a chair (including a wheelchair): A Lot Standing up from a chair using your arms (e.g. wheelchair, or bedside chair): Total To walk in hospital room: Total Climbing 3-5 steps with a railing: Total Raw Score: 13 Standardized (T-scale) Score: 33.99 Basic Mobility CMS 0-100%: 57.65 CMS G Code Modifier for Basic Mobility: CK GOALS: Goals Goal Formulation: With Patient Time For Goal Achievement: 4 days Pt Will Go Supine To/From Sit: Independently Pt Will Transfer Bed/Chair: w/ Stand By Assist PLAN: Plan Treatment Interventions: Mobility Training;Strengthening;Balance Activities; Family Training Plan Frequency: 5-7 Days per Week PT Plan for Next Visit: Assess LLE strength (MMT)/AROM, trial transfer to wheelchair (in room). RECOMMENDATIONS: PT Discharge Recommendations PT Discharge Recommendations: Inpatient Setting Equipment Recommendations: Too early to be determined Comments: PT unable to assess LE strength and transfer, will continue to update recommendations. Pt currently requiring Ax2 for transfer to commode with nursing, pt's boyfriend able to assist as needed, pt currently requiring increased required physical assist. Therapist: Cassie Chi, PT DPT [id number] Date: 01/09/2018 * Sugar Schwartz MD - 01/09/2018 6:46 AM SOLAR PHOTOVOLTAIC SYSTEMS ENGINEER Formatting of this note may be different from the original. ATTESTATION I personally performed the arteaga portions of the E/M visit, discussed case with resident and concur with resident documentation of history, physical exam, assessment, and treatment plan unless otherwise noted. Staff name: Sugar Schawrtz MD Date: 01/09/2018 I spent 35 min on the patient more than 50% on counseling and coordination of care I reviewed H&P , clinic notes And/or ED course. Reconcile medications I discussed treatment plan and hospital course with the patient . the patient was admitted after fall , she had mild acute renal insufficiency that improved with IV fluids She ia more weak than usual and on multiple medications that can put her at risk for falls including opiods , BDZ and flexeril She is agreeable to come off flexeril , she does not think she can come off clonopin or opioids due to uncontrolled anxiety and pain respectively PT recommends inpatient , we will work on placement General Progress Note Today's Date: 01/09/2018 Name: Asif Horta Age: 52 y.o. Admission Date: 01/08/2018 LOS: LOS: 1 day Assessment Active Problems: Hip pain Falls frequently Asif Horta is a 52 y.o. 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 Plan Interval changes: PT recommends inpatient setting for discharge. Reducing medication burden by stopping tizanidine; as well as discussed reducing medications and consulted nursing pain management and anesthesia pain management. 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 - G[employer] MATE regimen: Clonazepam 1mg TID, Clonidine 0.1mg BID, Fentanyl patch 50mcg daily, Lyrica 150mg TIDmg, Tizanidine 4mg BID, Nabumetone 500mg TID - CT head in the ED unremarkable - CT A/P without obstruction, inflammation, acute fracture, prior bilateral Girdlestone with chronic bilateral hip effusion and synovitis - s/p 1L LR Plan > Anesthesia chronic pain consulted > cash management clerk consulted > consider anesthesia chronic pain consult for possible injection therapy to hips while she is waiting for Ortho apt > A-K pad to pain max 20min ON and min 20min OFF > patient refusing amitriptyline/gabapentin/emu oil(#) 4/4/10% topical cream ( emu compound) > lidocaine patches likely unbenefical given depth of pain > consider Diclofenac, additional tylenol. Goal is reduce inflammation. May consider 5-7 day course of meloxicam w/ loading dose on day 1 and 7.5mg the other days, or steroids > patient not taking a short acting opioid, however she has discussed at length with her persistent opioid prescriber her current quality of life and he has not started one. Starting one now in an acute care setting would not ensure that we are impacting her custodial care unless discussed with Dr. Vaughn and it is known that he is okay with continuing it. > Patient shares with me that at times she may not take clonazepam, clonidine, or cyclobenzaprine daily. But she indicates there is no correlation to days in which she does take them and falls. > continue G[employer] MATE Clonazepam, Clonidine, Fentanyl patch, Lyrica > DC Tizanidine > Abx as below > PT/OT consult. x2 assist transfers. Recommends inpt setting 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 > Ortho consult #UTI - suprapubic pain - UA with WBC 2-10, Leuks positive, Nitrite +, few bacteria Plan > Rocephin x3 days (start 01/08) > F/U Urine cultures #ALISSA (resolved) - Likely pre-renal etiology given history of poor intake - Creatinine 1.05 -> 0.86 after fluids Plan > Encourage PO intake #Decreased appetite with nausea #Dehydration - May be related to Saxenda with increased dose the last 2 week - s/p 1L LR Plan > Hold Saxenda #Anxiety #History of substance abuse - Chronically takes Klonopin, will continue to prevent withdrawals - Prozac 80mg - UDS +benzodiazepines (prescribed) Plan > continue [facility] Clonazepam, Clonidine > continue G[employer] MATE Prozac > consider psychiatry referral outpatient #Chronic hepatitis C - F/U viral load, med rec #HTN - G[employer] MATE clonidine #Microcytic anemia - Patient chronically anemic, on admission Hgb 10.1 - iron studies abnormal, c/w anemic of chronic disease Plan > monitor PPX: IVF: none Electrolytes: replacing PRN Diet: DIET regular Lines:PIV Drains/Tubes:None Indwelling Urinary Catheter: No DVT:lovenox GI:Protonix PT/OT: Yes Code Status: Full Code Disposition: continue admit to med 3. Per PT recs and patient insurance, SW will require some time to arrange SNF Patient seen and discussed with Dr. Lana Loya MD PGY1 IM Resident Pager: [phone] Subjective Asif Horta had NAEO. She does report severe hip pain 7/10 b/l that is sharp and "has got me". She reports weakness and difficulty moving from pain. She reports pain meds haven't provided her much symptom relief or functional benefit. She agreed to try off the tizanidine. She denies f/c, cp, SOB, n/v, dysuria, hematuria, constipation. Objective Medications Scheduled Meds: amitriptyline/gabapentin/emu oil(#) 4/4/10 % topical cream Topical Q8H aspirin chewable tablet 81 mg 81 mg Oral QDAY cefTRIAXone (ROCEPHIN) IVP 1 g 1 g Intravenous Q24H* clonazePAM (KLONOPIN) tablet 1 mg 1 mg Oral TID cloNIDine (CATAPRESS) tablet 0.1 mg 0.1 mg Oral BID docusate (COLACE) capsule 100 mg 100 mg Oral BID enoxaparin (LOVENOX) syringe 40 mg 40 mg Subcutaneous QDAY [START ON 01/10/2018] fentaNYL (DURAGESIC) 50 mcg/hr patch 1 patch 1 patch Transdermal Q72H* melatonin tablet 3 mg 3 mg Oral QHS pregabalin (LYRICA) capsule 150 mg 150 mg Oral TID tiZANidine (ZANAFLEX) tablet 4 mg 4 mg Oral TID Continuous Infusions: PRN and Respiratory Meds:acetaminophen Q6H PRN, sumatriptan succinate PRN Vital Signs: Last Filed In 24 Hours Vital Signs: 24 Hour Range BP: 113/64 (01/09 514) Temp: 36.3 C (97.4 F) (01/09 514) Pulse: 74 (01/09 514) Respirations: 16 PER MINUTE (01/09 514) SpO2: 94 % (01/09 514) O2 Delivery: None (Room Air) (01/09 514) SpO2 Pulse: 82 (01/08 1322) Height: 172.7 cm (68") (01/08 2009) BP: (111-120)/(64-74) Temp: [36.3 C (97.4 F)-36.8 C (98.2 F)] Pulse: [74-82] Respirations: [12 PER MINUTE-19 PER MINUTE] SpO2: [94 %-100 %] O2 Delivery: None (Room Air) Intake/Output Summary: (Last 24 hours) Intake/Output Summary (Last 24 hours) at 01/09/18 0646 Last data filed at 01/08/18 2305 Gross per 24 hour Intake 240 ml Output 100 ml Net 140 ml Physical Exam: Gen: overweight adult female in NAD, appears moderately medicated with slowed speech, slowed attention Neuro: drowsy; oriented; moving all limbs spontaneously; 5/5 strength in ankles and knees, hips not assessed due to patient position and pain; ROM limited in lower extremities due to pain HEENT:eyes open with no discharge; EOMI CV: RR, S1, S2, no murmur, no friction rub Pulmonary: breathing w/o accessory muscles, CTAB, no wheezes/crackles/rhonchi Abd:obese, +bowel sounds, nondistended, nontender, soft without guarding or rebound Skin:no rashes; dry and warm Ext: no edema; 2+radial and pedalis pulses Psych: appears anxious/hesitant Lab/Radiology/Other Diagnostic Tests: Recent Labs 01/08/18 1450 01/08/18 2250 01/09/18 0439 NA 139 -- 140 K 4.3 -- 3.8 CL 104 -- 106 CO2 25 -- 26 GAP 10 -- 8 BUN 20 -- 18 CR 1.05* -- 0.86 GLU 100 -- 89 CA 9.3 -- 9.0 ALBUMIN 3.0* -- 2.7* MG -- -- 2.1 PO4 -- 4.1 -- TSH -- 0.740 -- Recent Labs 01/08/18 1450 01/08/18 2250 01/09/18 0439 WBC 6.3 -- 4.6 HGB 10.1* -- 9.2* HCT 31.0* -- 28.9* PLTCT 405* -- 406* INR -- 1.4* -- PTT -- 20.2 -- AST 26 -- 19 ALT 15 -- 11 ALKPHOS 140* -- 117* Estimated Creatinine Clearance: 94.1 mL/min (based on SCr of 0.86 mg/dL). Vitals: 01/08/18200801/09/18 0530 Weight: 93.2 kg (205 lb 7.5 oz) 94.7 kg (208 lb 12.4 oz) No results for input(s): PHART, PO2ART in the last 72 hours. Invalid input(s): PC02A Pertinent radiology reviewed. CT A/P WO 01/08 IMPRESSION 1. No bowel obstruction, inflammatory mass, ascites, or intra-abdominal hematoma. 2. No acute fracture. 3. Prior bilateral Girdlestone procedures with chronic bilateral hip effusions and synovitis. Acute infection or hematoma considered less likely given similar appearance to March 2015. CT HEAD W/O 01/08 IMPRESSION 1. No acute intracranial hemorrhage or calvarial fracture. * Abbie Harrison RN - 01/08/2018 8:30 PM SOLAR PHOTOVOLTAIC SYSTEMS ENGINEER Patient arrived to room #HC703 via cart accompanied by transport. Patient transferred to the bed with assistance. Bedside safety checks completed. Initial patient assessment completed, refer to flowsheet for details. Admission skin assessment completed by: KALIE Leiva & KALIE Dasilva Pressure Injury Present on Hospital Admission (within 24 hours): Yes 1. Occiput: No 2. Ear: No 3. Scapula: No 4. Spinous Process: No 5. Shoulder: No 6. Elbow: No 7. Iliac Crest: No 8. Sacrum/Coccyx: Yes 9. Ischial Tuberosity: No 10. Trochanter: No 11. Knee: No 12. Malleolus: No 13. Heel: Yes 14. Toes: No 15. Assessed for device associated injury Yes 16. Nursing Nutrition Assessment Completed No Pressure injury also present on lower leg See Doc Flowsheet for additional wound details. in this encounter H&P Notes * Greta Guevara MD - 01/08/2018 6:52 PM SOLAR PHOTOVOLTAIC SYSTEMS ENGINEER Formatting of this note may be different from the original. History and Physical Examination Name: Asif Horta Birthday: 1965 Admission Date: 01/08/2018 LOS: 0 days Assessment/Plan Active Problems: Hip pain Falls frequently Asif Horta is a 52 y.o. 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 Frequent falls Likely multifactorial related to mobility limitations with hip pain, UTI, and poor PO intake Bilateral hip pain, chronic Patient with history of MRSA septic right total hip arthroplasty with femoral head MRSA osteomyelitis status post Girdlestone in January 2015 CT head in the ED unremarkable CT abd/pel without obstruction, inflammation, acute fracture, prior bilateral Girdlestone with chronic bilateral hip effusion and synovitis Plan Ortho consult, can consider anesthesia pain as well Will continue patient's GUNNER[employer] MATE pain medications for now (Lyrica, fentanyl patch, Tizanidine) LR 1 liter PT/OT UTI Patient with some suprapubic pain UA with WBC 2-10, Leuks positive, Nitrite +, few bacteria Plan Continue rocephin in the ED LR 1 L Urine cultures ALISSA Likely pre-renal etiology given history of poor intake Creatinine 1.05 Plan Will hydrate with IVF Encourage PO intake Decreased appetite with nausea May be related to Saxenda with increased dose the last 2 week Plan Hold Saxenda Anxiety Chronically takes Klonopin, will continue to prevent withdrawals Patient also started a new medication, unsure which (need med rec) History of substance abuse Patient claims abstinence Plan UDS Chronic hepatitis C Unsure what medication she is on Plan Check viral load, med rec HTN Continue home clonidine Microcytic anemia Patient chronically anemic, on admission Hgb 10.1 Plan Iron studies Prophylaxis: Lovenox Code status: Full code Disposition: Admit to [facility] Patient seen and discussed with attending, Dr. Gutierrez. Greta Guevara MD (Pager: [phone]) History of Present Illness: Asif Horta is a 52 y.o. female with a medical history significant for MRSA septic right total hip arthroplasty with femoral head MRSA osteomyelitis status post Girdlestone in January 2015 (had a long course of antibiotics which was completed March 2015), chronic hepatitis C, chronic bilateral hip pain, venous insufficiency, gastroesophageal reflux, obesity, arthritis, anxiety, hypertension, prior history of substance abuse who presents to the emergency department for increased hip pain and after having more frequent falls for the past 4 days. Patient reports that her bilateral hip pain had been increasing in severity over the past month or so. Counterpoint where she is having significant impairment on doing her daily activities. Today going into the shower patient felt weak and fell. She has fallen multiple times in the past few days, 4. She reports that this pain has been bad for a long time. Water aerobics helps a little bit. It is creating a lot of anxiety. Of note, patient used to follow-up with Bora Gomez at . However due to her medication noncompliance and history of substance abuse she was discharged from clinic and given referral to other orthopedic surgeons. Since that time she has seen other orthopedic surgeons who deemed her case to be too complicated for them. However she reports that she has been clean for at least a couple years will like to revisit with orthopedic surgeons for possible interventions. In addition patient reports over the past couple weeks she has had decreased appetite, nausea. She is recently started Saxenda the for weight loss with a increase in dose the last 2 weeks. Patient also has suprapubic abdominal pain. Review of Systems Constitution: Positive for chills, decreased appetite and weakness. Negative for fever and night sweats. HENT: Negative. Negative for congestion. Eyes: Negative. Cardiovascular: Negative for chest pain, palpitations and syncope. Respiratory: Negative for cough, hemoptysis, shortness of breath and wheezing. Endocrine: Negative for polydipsia and polyuria. Skin: Negative. Musculoskeletal: Positive for arthritis and joint pain. Gastrointestinal: Positive for abdominal pain. Negative for change in bowel habit, hematemesis, hematochezia and melena. Genitourinary: Negative for hematuria. Neurological: Positive for dizziness and loss of balance. Negative for aphonia, light-headedness, seizures and sensory change. Psychiatric/Behavioral: Positive for depression. The patient is nervous/ anxious. Allergic/Immunologic: Negative for environmental allergies. Past Medical History: Diagnosis Date Aftercare following explantation of hip joint prosthesis 01/27/2015 ARF (acute renal failure) ([facility]) r/t IV drug use Arthritis Back pain Bipolar affective ([facility]) Chronic pain Depression Drug abuse IV meth use last 07/2014; marijuana Fracture [...] hand SHOULDER SURGERY RT shoulder-bone spur excision Social History Social History Marital status: Single Spouse name: N/A Number of children: N/A Years of education: N/A Social History Main Topics Smoking status: Never [...] Social History Narrative No narrative on file Family History Problem Relation Age of Onset Cancer Mother Osteoporosis Mother Stroke Mother Scoliosis Mother Arthritis-rheumatoid Mother Allergies: Bactrim [sulfamethoxazole-trimethoprim] and Pcn [penicillins] Scheduled Meds:Continuous Infusions: PRN and Respiratory Meds: Vital Signs: Last Filed Vital Signs: 24 Hour Range BP: 114/72 (01/08 171) Temp: 36.8 C (98.2 F) (01/08 1322) Pulse: 81 (01/08 171) Respirations: 16 PER MINUTE (01/08 171) SpO2: 100 % (01/08 171) O2 Delivery: None (Room Air) (01/08 171) SpO2 Pulse: 82 (01/08 1322) BP: (111-114)/(72-74) Temp: [36.8 C (98.2 F)] Pulse: [81] Respirations: [12 PER MINUTE-16 PER MINUTE] SpO2: [99 %-100 %] O2 Delivery: None (Room Air) Intensity Pain Scale (Self Report): 8 (01/08/18 1322) There were no vitals filed for this visit. Physical Exam: Constitutional: 52 y.o. female resting in bed appearing in no significant distress, seemed sedated Head: Normocephalic, atraumatic Eyes: Extra-occular muscles intact, perrla, clear sclera ENT: Nose midline without drainage, neck supple without tracheal deviation, oral mucous membrane moist Cardiovascular: Regular rate and rhythm, normal S1 and S2, no murmur /rub/gallop Pulmonary: Clear to auscultation bilaterally, no wheezes or rales Abdominal: Soft, suprapubic TTP, non-distended (baseline habitus), bowel sounds 4+ Dermatologic: No rashes or bruises, good turgor, cap refill <2s Neurological: Cranial nerves II-XII intact, no gross focal neurological deficits Musculoskeletal: Lower extremity motion limited Extremities: No pitting edema, pulses present b/l Psych: Anxious Lab/Radiology/Other Diagnostic Tests: 24-hour labs: Results for orders placed or performed during the hospital encounter of (from the past 24 hour(s)) CBC AND DIFF Collection Time: 01/08/18 2:50 PM Result Value Ref Range White Blood Cells 6.3 4.5 - 11.0 K/UL RBC 3.88 (L) 4.0 - 5.0 M/UL Hemoglobin 10.1 (L) 12.0 - 15.0 GM/DL Hematocrit 31.0 (L) 36 - 45 % MCV 79.8 (L) 80 - 100 FL MCH 26.0 26 - 34 PG MCHC 32.6 32.0 - 36.0 G/DL RDW 16.0 (H) 11 - 15 % Platelet Count 405 (H) 150 - 400 K/UL MPV 7.2 7 - 11 FL Neutrophils 58 41 - 77 % Lymphocytes 26 24 - 44 % Monocytes 14 (H) 4 - 12 % Eosinophils 1 0 - 5 % Basophils 1 0 - 2 % Absolute Neutrophil Count 3.60 1.8 - 7.0 K/UL Absolute Lymph Count 1.60 1.0 - 4.8 K/UL Absolute Monocyte Count 0.90 (H) 0 - 0.80 K/UL Absolute Eosinophil Count 0.10 0 - 0.45 K/UL Absolute Basophil Count 0.00 0 - 0.20 K/UL COMPREHENSIVE METABOLIC PANEL Collection Time: 01/08/18 2:50 PM Result Value Ref Range Sodium 139 137 - 147 MMOL/L Potassium 4.3 3.5 - 5.1 MMOL/L Chloride 104 98 - 110 MMOL/L Glucose 100 70 - 100 MG/DL Blood Urea Nitrogen 20 7 - 25 MG/DL Creatinine 1.05 (H) 0.4 - 1.00 MG/DL Calcium 9.3 8.5 - 10.6 MG/DL Total Protein 8.4 (H) 6.0 - 8.0 G/DL Total Bilirubin 0.4 0.3 - 1.2 MG/DL Albumin 3.0 (L) 3.5 - 5.0 G/DL Alk Phosphatase 140 (H) 25 - 110 U/L AST (SGOT) 26 7 - 40 U/L CO2 25 21 - 30 MMOL/L ALT (SGPT) 15 7 - 56 U/L Anion Gap 10 3 - 12 eGFR Non 55 (L) >60 mL/min eGFR >60 >60 mL/min URINALYSIS DIPSTICK Collection Time: 01/08/18 4:51 PM Result Value Ref Range Color,UA YELLOW Turbidity,UA CLEAR CLEAR-CLEAR Specific Drummond-Urine 1.017 1.003 - 1.035 pH,UA 5.0 5.0 - 8.0 Protein,UA NEG NEG-NEG Glucose,UA NEG NEG-NEG Ketones,UA NEG NEG-NEG Bilirubin,UA NEG NEG-NEG Blood,UA NEG NEG-NEG Urobilinogen,UA INCREASED (A) NORM-NORMAL Nitrite,UA POS (A) NEG-NEG Leukocytes,UA 1+ (A) NEG-NEG Urine Ascorbic Acid, UA POS (A) NEG-NEG URINALYSIS, MICROSCOPIC Collection Time: 01/08/18 4:51 PM Result Value Ref Range WBCs,UA 2-10 0 - 2 /HPF RBCs,UA 0-2 0 - 3 /HPF MucousUA 1+ Bacteria,UA FEW (A) NEG-NEG Squamous Epithelial Cells 2-5 0 - 5 Pertinent radiology reviewed. Associated attestation - Wei Gutierrez MD - 01/08/2018 11:32 PM SOLAR PHOTOVOL[employer]IC SYSTEMS ENGINEER Formatting of this note may be different from the original. ATTESTATION I personally performed the arteaga portions of the E/M visit, discussed case with resident and concur with resident documentation of history, physical exam, assessment, and treatment plan unless otherwise noted. Patient presents with increasing hip pain, frequent falls, and weakness. Will consult Ortho. If no operative intervention recommended, will obtain Anesthesia pain c/s. Continue GUNNER'S MATE pain medications. Rest is as per Dr. Guevara. Staff name: Wei Gutierrez MD Date: 01/08/2018 in this encounter Consult Notes * Katelynn Murray RN - 01/09/2018 3:24 PM SOLAR PHOTOVOL[employer]IC SYSTEMS ENGINEER Associated Order(s): CONSULT WOUND/OSTOMY TEAM NURSE Wound Ostomy Note NAME:Asif Horta :1965 AGE: 52 y.o. ADMISSION DATE: 01/08/2018 DAYS ADMITTED: LOS: 1 day Reason for Consult/Visit: pressure injury Stage II or greater Assessment/Plan: Active Problems: Hip pain Falls frequently Patient seen today for assessment of potential pressure injuries. Right lower posterior leg with a healed scar. No pressure injury noted. Lt heel with intact, pink and blanchable skin. No pressure injury noted. Lt and Rt buttocks with a small area of intact, pink and blanchable skin. No pressure injury noted. Our service will sign off at this time. Thank you. Katelynn Murray RN, BSN, CMSRN Wound/Ostomy Team Pager: [phone] After Hours Wound/OstomyTeam Pager: [phone] * Anthony Ruggiero RN - 01/09/2018 2:26 PM SOLAR PHOTOVOLTAIC SYSTEMS ENGINEER Associated Order(s): CONSULT NURSING PAIN MANAGEMENT Formatting of this note may be different from the original. Nursing Pain Management - Initial Consult Pt. Name: Asif Horta Admit Date: 01/08/2018 Room: [place] [address] Reason for consult, "chronic opioid therapy" Consult request reviewed and chart reviewed prior to speaking with patient. Suggestions to Consider: Primary team is responsible for entering orders. Agree with restarting GUNNER'S MATE pain regimen. Consider consult to anesthesia chronic pain team for possible injection therapy to hips while she is waiting for her apt with Ortho in March. A-K pad to pain not to exceed 20 minutes on and at least 20 minutes off, patient not to sleep with heating pad on. - patient refusing amitriptyline/gabapentin/emu oil(#) 4/4/10% topical cream ( emu compound) - Consider use of diclofenac gel. - lidocaine patches likely unbenefical given that pain stimuli is joint origination and the lidocaine is unable to penetrate this deep. In addition most likely cost prohibitive even OTC. - Patient using acetaminophen occasionally, could increase use at home. - reducing inflammation in severe joint dysfunction would most likely produce favorable results. Even though she has an ortho apt is is not until 04/02/2018 and this is not a surgical date. May consider a short course of Meloxicam giving a loading dose on day 1 after that running 7.5 mg for 5-7 days, this will only provide a short duration of help. Using a steroid may also produce favorable results and may last longer than Meloxicam. Medical decision is left to primary team on this class of medication. - patient not taking a short acting opioid, however she has discussed at length with her persistent opioid prescriber her current quality of life and he has not started one. Starting one now in an acute care setting would not ensure that we are impacting her custodial care unless discussed with Dr. Vaughn and it is known that he is okay with continuing it. - Patient shares with me that at times she may not take clonazepam, clonidine, or cyclobenzaprine daily. But she indicates there is no correlation to days in which she does take them and falls. - Patient is already taking a neuropathic agent pregabalin at 450 mg daily. Anticipated D/C Planning: Non-pharmacological interventions. Multi-modal oral pain regimen. Patient following with below provider for persistent pain management with last fills noted, [facility] ([id number]) [address] [facility] [address] [facility] ([id number]) [address] [address] [facility] [address] MD CHARLES, WYATT Singh [address] [facility] [address] Filled ID Written Drug QTY Days Prescriber Rx # Pharmacy * 01/08/2018 1 01/08/2018 FENTANYL 50 MCG/HR PATCH 15.0 30 DA HUE [id number] [facility] ([id number]) 12/30/2017 3 10/30/2017 LYRICA 150 MG CAPSULE 84.0 28 DA HUE [id number] [facility] ([id number]) 12/16/2017 3 12/16/2017 CLONAZEPAM 1 MG TABLET 90.0 30 DA HUE [id number] [facility] ([id number]) 12/11/2017 3 12/11/2017 FENTANYL 50 MCG/HR PATCH 15.0 30 DA HUE [id number] [facility] ([id number]) Summary: Ms. Asif Horta is a 52 y.o. 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 Patient reports that her bilateral hip pain had been increasing in severity over the past month or so. Counterpoint where she is having significant impairment on doing her daily activities. Today going into the shower patient felt weak and fell. She has fallen multiple times in the past few days, 4. She reports that this pain has been bad for a long time. She is following with PT and water aerobics helps a little bit. It is creating a lot of anxiety. Of note, patient used to follow-up with Ortho at . However due to her medication noncompliance and history of substance abuse she was discharged from clinic and given referral to other orthopedic surgeons. Since that time she has seen other orthopedic surgeons who deemed her case to be too complicated for them. However she reports that she has been clean for 2 years and would like to revisit with orthopedic surgeons for possible interventions. Thank you for allowing our service to participate in the care of this patient. Please page with questions/concerns, team pager [phone]. Anthony Ruggiero, MSN, RN- Clinical Nurse Coordinator Pain Management [phone] Current Medication Regimen: Current Facility-Administered Medications: acetaminophen (TYLENOL) tablet 650 mg, 650 mg, Oral, Q6H PRN, Greta Guevara MD, 650 mg at 01/09/18 0950 amitriptyline/gabapentin/emu oil(#) 4/4/10 % topical cream, , Topical, Q8H , Greta Guevara MD aspirin chewable tablet 81 mg, 81 mg, Oral, QDAY, Greta Guevara MD, 81 mg at 01/09/18 0952 cefTRIAXone (ROCEPHIN) IVP 1 g, 1 g, Intravenous, Q24H*, Marin Loya MD clonazePAM (KLONOPIN) tablet 1 mg, 1 mg, Oral, TID, Greta Guevara MD, 1 mg at 01/09/18 0948 cloNIDine (CATAPRESS) tablet 0.1 mg, 0.1 mg, Oral, BID, Greta Guevara MD, 0.1 mg at 01/09/18 0949 docusate (COLACE) capsule 100 mg, 100 mg, Oral, BID, Greta Guevara MD, 100 mg at 01/08/18 2216 enoxaparin (LOVENOX) syringe 40 mg, 40 mg, Subcutaneous, QDAY, Greta Guevara MD, 40 mg at 01/09/18 0952 [START ON 01/10/2018] fentaNYL (DURAGESIC) 50 mcg/hr patch 1 patch, 1 patch , Transdermal, Q72H*, Notarianni Monika P., DO melatonin tablet 3 mg, 3 mg, Oral, QHS, Greta Guevara MD, 3 mg at 01/08/18 2216 pregabalin (LYRICA) capsule 150 mg, 150 mg, Oral, TID, Greta Guevara MD, 150 mg at 01/09/18 0949 SUMAtriptan succinate (IMITREX) tablet 100 mg, 100 mg, Oral, PRN, Greta Guevara MD Prior to Admission Analgesic Regimen: Fentanyl patch 50 mcg/hr every 48 hours, last changed 01/09 Recent Prescription History: [facility] ([id number]) [address] [facility] [address] [facility] ([id number]) [address] [address] [facility] [address] MD CHARLES, WYATT Singh [address] [facility] [address] Filled ID Written Drug QTY Days Prescriber Rx # Pharmacy * 01/08/2018 1 01/08/2018 FENTANYL 50 MCG/HR PATCH 15.0 30 DA HUE [id number] [facility] ([id number]) 12/30/2017 3 10/30/2017 LYRICA 150 MG CAPSULE 84.0 28 DA HUE [id number] [facility] ([id number]) 12/16/2017 3 12/16/2017 CLONAZEPAM 1 MG TABLET 90.0 30 DA HUE [id number] [facility] ([id number]) 12/11/2017 3 12/11/2017 FENTANYL 50 MCG/HR PATCH 15.0 30 DA HUE [id number] [facility] ([id number]) Assessment: (W) Words to describe pain: ache (I) Intensity of pain: severe Patient's personal pain goal: mild (L) Location of pain: Bilateral hips R>L (D) Duration of pain: constant (A) Aggravating/Alleviating factors: Moving, pressure / resting fentanyl patch helps some, cyclobenzaprine when no one is around Last Bowel Movement: GUNNER'S MATE Opioid Calculations: Date: GUNNER'S MATE Fentanyl patch 50 mcg/hr ~ 100 mg Total oral morphine equivalent ~ 100 mg Date: 01/08 SDA SDA Fentanyl patch 50 mcg/hr ~ 100 mg Total oral morphine equivalent ~ 100 mg Vitals: 01/08/18200901/09/18 0514 01/09/18 0530 01/09/18 1039 BP: 120/73 113/64 112/76 Pulse: 82 74 75 Temp: 36.6 C (97.8 F) 36.3 C (97.4 F) 37.2 C (98.9 F) SpO2: 97% 94% 94% Weight: 94.7 kg (208 lb 12.4 oz) Height: Allergies Allergen Reactions Bactrim [Sulfamethoxazole-Trimethoprim] RASH Pcn [Penicillins] RASH Has tolerated Keflex in past per patient interview Basic Metabolic Profile Lab Results Component Value Date/Time NA 140 01/09/2018 04:39 AM K 3.8 01/09/2018 04:39 AM CL 106 01/09/2018 04:39 AM CO2 26 01/09/2018 04:39 AM GAP 8 01/09/2018 04:39 AM Lab Results Component Value Date/Time BUN 18 01/09/2018 04:39 AM CR 0.86 01/09/2018 04:39 AM GLU 89 01/09/2018 04:39 AM `Hemogram Lab Results Component Value Date/Time WBC 4.6 01/09/2018 04:39 AM RBC 3.56 (L) 01/09/2018 04:39 AM HGB 9.2 (L) 01/09/2018 04:39 AM HCT 28.9 (L) 01/09/2018 04:39 AM MCV 81.1 01/09/2018 04:39 AM MCH 25.9 (L) 01/09/2018 04:39 AM MCHC 31.9 (L) 01/09/2018 04:39 AM RDW 15.7 (H) 01/09/2018 04:39 AM PLTCT 406 (H) 01/09/2018 04:39 AM MPV 6.9 (L) 01/09/2018 04:39 AM in this encounter Miscellaneous Notes * Care Plan - Erasmo Mccoy RN - 01/13/2018 5:30 PM SOLAR PHOTOVOLTAIC SYSTEMS ENGINEER Problem: Infection, Risk of Goal: Absence of infection Outcome: Goal Achieved Date Met: 01/13/18 Adequate for discharge Goal: Knowledge of Infection Control Procedures Outcome: Goal Achieved Date Met: 01/13/18 Adequate for discharge Problem: Discharge Planning Goal: Participation in plan of care Outcome: Goal Achieved Date Met: 01/13/18 Patient able to participate in POC this shift Goal: Knowledge regarding plan of care Outcome: Goal Achieved Date Met: 01/13/18 Patient to discharge to facility today Goal: Prepared for discharge Outcome: Goal Achieved Date Met: 01/13/18 Patient is prepared at this time Problem: Pain Goal: Management of pain Outcome: Goal Achieved Date Met: 01/13/18 Adequate for discharge Goal: Knowledge of pain management Outcome: Goal Achieved Date Met: 01/13/18 Adequate for discharge Problem: Skin Integrity Goal: Skin integrity intact Outcome: Goal Achieved Date Met: 01/13/18 Adequate for discharge Goal: Healing of skin (Wound & Incision) Outcome: Goal Achieved Date Met: 01/13/18 Adequate for discharge Goal: Healing of skin (Pressure Ulcer) Outcome: Goal Achieved Date Met: 01/13/18 Adequate for discharge Problem: Falls, High Risk of Goal: Absence of falls-Adult Patient Outcome: Goal Achieved Date Met: 01/13/[address] Problem: Mobility/Activity Intolerance Goal: Maximize functional ADL's and mobility outcomes Outcome: Goal Achieved Date Met: 01/13/18 Adequate for discharge Problem: Self-Care Deficit Goal: Maximize ADL functioning Outcome: Goal Achieved Date Met: 01/13/18 Adequate for discharge * Case Mgmt DC Natalie Hurd - 01/13/2018 4:41 PM SOLAR PHOTOVOLTAIC SYSTEMS ENGINEER Transportation Summary for Asif Escamilla Immanuelarianne Requesting Oil Burner Servicer And Installer: ANGEL Gonzales Date: 01/13/2018 This auto service writer set up transportation for this Pt with [employer] [phone] for approximately 17:20-17:45 * Called Pt's nurse to update Updated [facility]. Natalie Winters Development Engineer * Case Mgmt DC Kirsty Zuniga - 01/13/2018 10:29 AM SOLAR PHOTOVOLTAIC SYSTEMS ENGINEER Formatting of this note may be different from the original. Case Management Progress Note NAME:Asif Horta :1965 AGE: 52 y.o. ADMISSION DATE: 01/08/2018 DAYS ADMITTED: LOS: 1 day Todays Date: 01/13/2018 Plan D/c to [facility] in [place] today via Medicaid transportation. RN report #: [phone] Interventions ? Support ? Info or Referral ? Discharge Planning Discharge Planning: Inpatient Rehabilitation Per Med 3, pt stable to d/c ROSE spoke with May at [facility] ([phone]). They have not heard back yet from insurance. May to contact them shortly and will update SW with response. Update 0532: SW received voicemail from May stating that they received insurance auth. SW attempted to call back and setup transportation. No answer. Voicemail left. Med 3 and RN notified SW completed transfer packet. Orders to be faxed to: [phone] De La Rosa the admitting physician is also wanting report from team. SW passed number on to Med 3. They will contact MD. ROSE tasked POLYSTYR[employer] MOLDING MACHINE TENDER to setup Medicaid transport to facility. However, Medicaid will not setup transportation to another hospital. [place] [employer] to be setup and billed to ? Medication Needs ? Financial ? Legal ? Other Disposition ? Expected Discharge Date Expected Discharge Date: 01/13/18 ? Transportation Does the patient need discharge transport arranged?: Yes (Anticipate facility transport) Does the patient use Medicaid Transportation?: No ? Next Level of Care (Acute Psych discharges only) ? Discharge Disposition Durable Medical Equipment No service has been selected for the patient. [facility] No service has been selected for the patient. Home Care No service has been selected for the patient. Dialysis/Infusion No service has been selected for the patient. Kirsty Rebolledo LMSW, AC Social Work, [facility] Pager: [phone] Desk: [phone] * Care Plan - Donita Figueroa RN - 01/13/2018 8:16 AM SOLAR PHOTOVOLTAIC SYSTEMS ENGINEER Problem: Infection, Risk of Goal: Knowledge of Infection Control Procedures Outcome: Goal Ongoing Isolation precautions maintained throughout shift. Problem: Discharge Planning Goal: Participation in plan of care Outcome: Goal Ongoing Pt actively participating in POC Goal: Knowledge regarding plan of care Outcome: Goal Ongoing POC reviewed with pt. Problem: Pain Goal: Management of pain Outcome: Goal Ongoing Patient consistently rates pain 9/10 while awake. Goal: Knowledge of pain management Outcome: Goal Ongoing Pt aware of available pain mgmt options. Tylenol provided prn in addition to scheduled emu/ amitriptyline cream and ice, heat, rest, and repositioning. Problem: Falls, High Risk of Goal: Absence of falls-Adult Patient Outcome: Goal Ongoing No falls throughout shift, fall bundle in place. Pt requests help appropriately prn. Problem: Mobility/Activity Intolerance Goal: Maximize functional ADL's and mobility outcomes Outcome: Goal Ongoing Pt able to actively transfers from bed to wheelchair and wheelchair to toilet and bed with assist x 1. * Care Plan - Tori Rose RN - 01/12/2018 5:49 PM SOLAR PHOTOVOLTAIC SYSTEMS ENGINEER Problem: Infection, Risk of Goal: Absence of infection Outcome: Goal Ongoing Continue contact isolation Problem: Discharge Planning Goal: Participation in plan of care Outcome: Goal Ongoing SW to plan a safe dc plan Problem: Pain Goal: Management of pain Outcome: Goal Ongoing Prn pain meds administered Problem: Skin Integrity Goal: Skin integrity intact Outcome: Goal Ongoing C/D/I Problem: Falls, High Risk of Goal: Absence of falls-Adult Patient Outcome: Goal Ongoing Bed alarm on at all times, call light within reach Problem: Mobility/Activity Intolerance Goal: Maximize functional ADL's and mobility outcomes Outcome: Goal Ongoing Assisted with ADL's as needed * Case Mgmt DC Plan - Kirsty Rebolledo - 01/12/2018 10:10 AM SOLAR PHOTOVOLTAIC SYSTEMS ENGINEER Formatting of this note may be different from the original. Case Management Progress Note NAME:Asif Horta :1965 AGE: 52 y.o. ADMISSION DATE: 01/08/2018 DAYS ADMITTED: LOS: 1 day Todays Date: 01/12/2018 Plan Anticipate d/c to IPR when pt medically stable, facility identified and insurance auth given. Interventions ? Support ? Info or Referral ? Discharge Planning Discharge Planning: Inpatient Rehabilitation SW received message from May at [facility] in [place]. Their medical center representative was denying pt on Friday due to concerns that pt could not tolerate 3 hours of therapy daily. They are willing to review again today to see weekend PT/OT notes. ROSE faxed updates to [facility] via [employer]. ROSE left message with May at [facility] ([phone]). Update 1515: SW received call back from May at [facility]. They are able to accept pt and are sending to insurance for auth. Per Med 3, pt is ready to d/c. ? Medication Needs ? Financial ? Legal ? Other Disposition ? Expected Discharge Date Expected Discharge Date: 01/13/18 ? Transportation Does the patient need discharge transport arranged?: Yes (Anticipate facility transport) Does the patient use Medicaid Transportation?: No ? Next Level of Care (Acute Psych discharges only) ? Discharge Disposition Durable Medical Equipment No service has been selected for the patient. [facility] No service has been selected for the patient. Home Care No service has been selected for the patient. [facility] Dialysis/Infusion No service has been selected for the patient. Kirsty Rebolledo, ANJANA, LMAC Social Work, [facility] Pager: [phone] Desk: [phone] * Care Plan - Tori Rose RN - 01/11/2018 6:59 PM SOLAR PHOTOVOLTAIC SYSTEMS ENGINEER Problem: Infection, Risk of Goal: Absence of infection Outcome: Goal Ongoing Continuing contact isolation Problem: Discharge Planning Goal: Participation in plan of care Outcome: Goal Ongoing SW to plan a safe dc plan Problem: Pain Goal: Management of pain Outcome: Goal Ongoing Prn pain meds administered Problem: Falls, High Risk of Goal: Absence of falls-Adult Patient Outcome: Goal Ongoing Bed alarm on at all times, call light within reach Problem: Mobility/Activity Intolerance Goal: Maximize functional ADL's and mobility outcomes Outcome: Goal Ongoing Assisted with ADL's * Care Plan - Elvia Kelsey RN - 01/09/2018 11:15 PM SOLAR PHOTOVOLTAIC SYSTEMS ENGINEER Problem: Infection, Risk of Goal: Knowledge of Infection Control Procedures Outcome: Goal Ongoing Education provided Problem: Discharge Planning Goal: Participation in plan of care Outcome: Goal Ongoing Patient actively participates in plan of care Goal: Knowledge regarding plan of care Outcome: Goal Ongoing Patient verbally states understanding in plan of care Goal: Prepared for discharge Outcome: Goal Ongoing Discharge ongoing at this time Problem: Pain Goal: Management of pain Outcome: Goal Ongoing Pain assessment completed at this time, medications given, as ordered Problem: Skin Integrity Goal: Skin integrity intact Outcome: Goal Ongoing Skin care provided Problem: Falls, High Risk of Goal: Absence of falls-Adult Patient Outcome: Goal Ongoing High fall risk bundle in place; no falls this shift; education provided * Care Plan - Cleopatra Wesley RN - 01/09/2018 3:56 PM SOLAR PHOTOVOLTAIC SYSTEMS ENGINEER Problem: Discharge Planning Goal: Participation in plan of care Outcome: Goal Ongoing Pt active in POC. Problem: Pain Goal: Management of pain Outcome: Goal Ongoing Pain medication given per orders this shift. Problem: Falls, High Risk of Goal: Absence of falls-Adult Patient Outcome: Goal Ongoing Fall bundle in place. Call light in reach. Problem: Self-Care Deficit Goal: Maximize ADL functioning Outcome: Goal Ongoing PT and OT consulted. * Case Mgmt DC Plan - Kesha - 01/09/2018 2:42 PM SOLAR PHOTOVOLTAIC SYSTEMS ENGINEER Case Management Progress Note NAME:Asif Horta :1965 AGE: 52 y.o. ADMISSION DATE: 01/08/2018 DAYS ADMITTED: LOS: 1 day Todays Date: 01/09/2018 Plan Anticipate d/c to [facility] pending medical stability, accepting facility and insurance auth. Interventions ? Support ? Info or Referral ? Discharge Planning Discharge Planning: Inpatient Rehabilitation PT recommending inpatient setting at d/c. OT still needing to work with pt and place recs. ROSE went ahead and sent referral to [facility] in [place] to start to [facility]. ROSE called [facility] ([phone]) and talked with Dhara ( cell:[phone]). She anticipates that a bed would be available for pt next week. They still need to review referral but will contact when they have an answer. Pt will need OT recs, facility acceptance and insurance auth prior to d/c. Insurance auth will for sure not occur over the weekend so pt will be inpatient until next week. Med 3 updated. ? Medication Needs ? Financial ? Legal ? Other Case Management Admission Assessment NAME:Asif Horta : 1965 AGE: 52 y.o. ADMISSION DATE: 01/08/2018 DAYS ADMITTED: LOS: 1 day Todays Date: 01/09/2018 Source of Information: Patient Asif Horta is a 52 y.o. 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 ROSE met with pt at bedside, introduced self and explained role. Pt sleepy but oriented and able to verify demographics. Pt reports living with significant other, Jose, in a 1 level home. Pt reports they have ramps into the home. She states that they have a tub shower unit and she has a shower chair that "she invented herself". Pt reports that she has a metal folding chair in the bathtub with a trash bag over it. She reports that this is one of the reasons she fell recently. Pt has w/c at bedside. PT/OT consulted. Pt agreeable to d/c to IPR and states that she was previously at [facility] in [place], [place] and would be agreeable to return if recommended. Plan Plan: CM Assessment, Assist PRN with SW/NCM Services, Discharge Planning for Facility Anticipated Patient Address/Phone [address] [facility] [address] (home) Emergency Contact Extended Emergency Contact Information Primary Emergency Contact: Onur Lockhart [facility] Relation: Significant Other Secondary Emergency Contact: Rafael Gambino [facility] Relation: Son Healthcare Directive Healthcare Directive: No, patient does not have a healthcare directive Would patient like to fill out a (a new) Healthcare Directive?: No, patient declined Psych Advance Directive (Psych unit only): No, patient does not have a Psych Advance Directive Transportation Does the patient need discharge transport arranged?: Yes (Anticipate facility transport) Does the patient use Medicaid Transportation?: No Expected Discharge Date Expected Discharge Date: 01/12/18 Living Situation Prior to Admission ? Living Arrangements Type of Residence: Home, with Home Health or other assistance Living Arrangements: Spouse/significant other Bathroom Shower / Tub: Tub/Shower Unit How many levels in the residence?: 1 Can patient live on one level if needed?: Yes Does residence have entry and/or side stairs?: No (Ramps) Assistance needed prior to admit or anticipated on discharge: Yes Who provides assistance or could if needed?: HCBS and BF Are they in good health?: Yes Can support system provide 24/7 care if needed?: Maybe ? Level of Function Prior level of function: Needs assist with ADLs Which ADLs require assistance?: Transfers, meal prep, self care Who assists with ADLs?: HCBS and s/o ? Cognitive Abilities Cognitive Abilities: Alert and Oriented, Continue to Assess Financial Resources ? Coverage Primary Insurance: Medicaid Secondary Insurance: No insurance Additional Coverage: RX ? Source of Income Source Of Income: SSDI ? Financial Assistance Needed? none Psychosocial Needs ? Mental Health Mental Health History: Yes Agency name: [facility] Symptoms: (Depression Anxiety) ? Substance Use History Substance Use History Screen: In the past Comment: Pt reports a hx of 30 years of addiction. When asked what substance she reports "more". Pt reports last use was 2 years ago. No needs for SA resources ? Other none Current/Previous Services ? PCP Wyatt Vaughn, , ? Pharmacy [facility] #[id number] [facility] [address] [address] [facility] [address] [id number] [facility] [address] [facility] PHARMACY ([facility]) [address] [place] [address] [facility] [address] [facility] [address] [facility] [id number] [place] [id number] ? Durable Medical Equipment Durable Medical Equipment at home: Wheelchair (manual) (W/c at bedside) ? Home Health Receiving home health: No ? Hemodialysis or Peritoneal Dialysis Undergoing hemodialysis or peritoneal dialysis: No ? Tube/Enteral Feeds Receive tube/enteral feeds: No ? Infusion Receive infusions: No ? Private Duty Private duty help used: No ? Home and Community Based Services Home and community based services: Yes Agency name: [facility] HCBS assistance hours/week: 15 Provider Schedule: M-F 1:30 to 4:30p ? Bhanu Iniguez: N/A ? Hospice Hospice: No ? Outpatient Therapy PT: No OT: No BELT OPERATOR: No ? Senior Living Facility/[facility] SNF: No NH: No ? Inpatient Rehab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 City/[facility]/Zipcode Phone Number MAIN LAB [address] [place] [address] * CBC AND DIFF (01/11/2018 5:15 AM) White Blood Cells 6.3 4.5 - 11.0 K/UL [facility] RBC 3.72 (L) 4.0 - 5.0 M/UL [facility] Hemoglobin 9.5 (L) 12.0 - 15.0 GM/DL [facility] Hematocrit 29.6 (L) 36 - 45 % [facility] MCV 79.4 (L) 80 - 100 FL [facility] MCH 25.6 (L) 26 - 34 PG [facility] MCHC 32.2 32.0 - 36.0 G/DL [facility] RDW 16.0 (H) 11 - 15 % [facility] Platelet Count 374 150 - 400 K/UL [facility] MPV 7.3 7 - 11 FL [facility] Neutrophils 51 41 - 77 % [facility] Lymphocytes 36 24 - 44 % [facility] Monocytes 10 4 - 12 % [facility] Eosinophils 2 0 - 5 % [facility] Basophils 1 0 - 2 % [facility] Absolute Neutrophil Count 3.30 1.8 - 7.0 K/UL [facility] Absolute Lymph Count 2.20 1.0 - 4.8 K/UL [facility] Absolute Monocyte Count 0.60 0 - 0.80 K/UL [facility] Absolute Eosinophil Count 0.10 0 - 0.45 K/UL [facility] Absolute Basophil Count 0.00 0 - 0.20 K/UL [facility] Specimen Blood Performing Organization Address City/[facility]/Zipcode Phone Number [facility] [address] [place] [address] * MAGNESIUM (01/10/2018 4:13 AM) Magnesium 2.0 1.6 - 2.6 mg/dL [facility] Specimen Blood Performing Organization Address City/[facility]/Zipcode Phone Number [facility] [address] [place] [address] * COMPREHENSIVE METABOLIC PANEL (01/10/2018 4:13 AM) Sodium 138 137 - 147 MMOL/L [facility] Potassium 4.0 3.5 - 5.1 MMOL/L [facility] Chloride 104 98 - 110 MMOL/L [facility] Glucose 82 70 - 100 MG/DL [facility] Blood Urea Nitrogen 13 7 - 25 MG/DL [facility] Creatinine 0.79 0.4 - 1.00 MG/DL [facility] Calcium 9.1 8.5 - 10.6 MG/DL [facility] Total Protein 7.8 6.0 - 8.0 G/DL [facility] Total Bilirubin 0.3 0.3 - 1.2 MG/DL [facility] Albumin 2.7 (L) 3.5 - 5.0 G/DL [facility] Alk Phosphatase 115 (H) 25 - 110 U/L [facility] AST (SGOT) 17 7 - 40 U/L [facility] CO2 26 21 - 30 MMOL/L [facility] ALT (SGPT) 10 7 - 56 U/L [facility] Anion Gap 8 3 - 12 [facility] eGFR [...] for questions. Specimen Blood Performing Organization Address City/State/Zipcode Phone Number MAIN LAB [address] [place] [address] * CBC AND DIFF (01/10/2018 4:13 AM) White Blood Cells 5.1 4.5 - 11.0 K/UL [facility] RBC 3.84 (L) 4.0 - 5.0 M/UL [facility] Hemoglobin 9.8 (L) 12.0 - 15.0 GM/DL [facility] Hematocrit 30.8 (L) 36 - 45 % [facility] MCV 80.2 80 - 100 FL [facility] MCH 25.6 (L) 26 - 34 PG [facility] MCHC 31.9 (L) 32.0 - 36.0 G/DL [facility] RDW 16.1 (H) 11 - 15 % [facility] Platelet Count 389 150 - 400 K/UL [facility] MPV 7.0 7 - 11 FL [facility] Neutrophils 43 41 - 77 % [facility] Lymphocytes 42 24 - 44 % [facility] Monocytes 11 4 - 12 % [facility] Eosinophils 3 0 - 5 % [facility] Basophils 1 0 - 2 % [facility] Absolute Neutrophil Count 2.20 1.8 - 7.0 K/UL [facility] Absolute Lymph Count 2.20 1.0 - 4.8 K/UL [facility] Absolute Monocyte Count 0.60 0 - 0.80 K/UL [facility] Absolute Eosinophil Count 0.20 0 - 0.45 K/UL [facility] Absolute Basophil Count 0.00 0 - 0.20 K/UL MAIN LAB Specimen Blood Performing Organization Address City/[facility] Servicescode Phone Number MAIN LAB [address] [place] [address] * HEPATITIS C VIRAL LOAD PCR QUANT (01/09/2018 11:51 AM) Hepatitis C PCR HCV RNA Not Detected, <12 <12 IU/ML [facility] Quantitative IU/mL Comment: The test method detects HCV viral load using the Gary RealTime assay. Please correlate results with the clinical status of the patient. Log 10 HCV <1.08 <1.08 IU/mL MAIN LAB Specimen Blood Performing Organization Address [facility] Servicescopr Phone Number [facility] [address] [place] [address] * MAGNESIUM (01/09/2018 4:39 AM) Magnesium 2.1 1.6 - 2.6 mg/dL MAIN LAB Specimen Blood Performing Organization Address [facility] Servicescode Phone Number [facility] [address] [place] [address] * COMPREHENSIVE METABOLIC PANEL (01/09/2018 4:39 AM) Sodium 140 137 - 147 MMOL/L [facility] Potassium 3.8 3.5 - 5.1 MMOL/L [facility] Chloride 106 98 - 110 MMOL/L [facility] Glucose 89 70 - 100 MG/DL [facility] Blood Urea Nitrogen 18 7 - 25 MG/DL [facility] Creatinine 0.86 0.4 - 1.00 MG/DL [facility] Calcium 9.0 8.5 - 10.6 MG/DL [facility] Total Protein 7.6 6.0 - 8.0 G/DL [facility] Total Bilirubin 0.3 0.3 - 1.2 MG/DL [facility] Albumin 2.7 (L) 3.5 - 5.0 G/DL [facility] Alk Phosphatase 117 (H) 25 - 110 U/L [facility] AST (SGOT) 19 7 - 40 U/L [facility] CO2 26 21 - 30 MMOL/L [facility] ALT (SGPT) 11 7 - 56 U/L [facility] Anion Gap 8 3 - 12 [facility] eGFR [...] for questions. Specimen Blood Performing Organization Address City/State/Zipcode Phone Number MAIN LAB [address] [place] [address] * CBC AND DIFF (01/09/2018 4:39 AM) White Blood Cells 4.6 4.5 - 11.0 K/UL [facility] RBC 3.56 (L) 4.0 - 5.0 M/UL [facility] Hemoglobin 9.2 (L) 12.0 - 15.0 GM/DL [facility] Hematocrit 28.9 (L) 36 - 45 % [facility] MCV 81.1 80 - 100 FL [facility] MCH 25.9 (L) 26 - 34 PG [facility] MCHC 31.9 (L) 32.0 - 36.0 G/DL [facility] RDW 15.7 (H) 11 - 15 % [facility] Platelet Count 406 (H) 150 - 400 K/UL [facility] MPV 6.9 (L) 7 - 11 FL [facility] Neutrophils 42 41 - 77 % [facility] Lymphocytes 44 24 - 44 % [facility] Monocytes 12 4 - 12 % [facility] Eosinophils 2 0 - 5 % [facility] Basophils 0 0 - 2 % [facility] Absolute Neutrophil Count 1.90 1.8 - 7.0 K/UL [facility] Absolute Lymph Count 2.00 1.0 - 4.8 K/UL [facility] Absolute Monocyte Count 0.60 0 - 0.80 K/UL [facility] Absolute Eosinophil Count 0.10 0 - 0.45 K/UL [facility] Absolute Basophil Count 0.00 0 - 0.20 K/UL [facility] Specimen Blood Performing Organization Address City/[facility] Servicescode Phone Number [facility] [address] [place] [address] * IRON + BINDING CAPACITY + %SAT+ FERRITIN (01/08/2018 10:50 PM) Iron 16 (L) 50 - 160 MCG/DL [facility] Iron Binding-TIBC 250 (L) 270 - 380 MCG/DL [facility] % Saturation 6 (L) 28 - 42 % [facility] Ferritin 145 10 - 200 NG/ML [facility] Specimen Blood Performing Organization Address [facility] Phone Number [facility] [address] [place] [address] * TSH WITH FREE T4 REFLEX (01/08/2018 10:50 PM) TSH 0.740 0.35 - 5.00 MCU/ML [facility] Specimen Blood Performing Organization Address [facility] Phone Number [facility] [address] [place] [address] * HEMOGLOBIN A1C (01/08/2018 10:50 PM) Hemoglobin A1C 5.4 4.0 - 6.0 % [facility] Comment: The ADA recommends that most patients with type 1 and type 2 diabetes maintain an A1c level <7%. Specimen Blood Performing Organization Address [facility] Services[facility] Phone Number [facility] [address] [place] [address] * LIPID PROFILE (01/08/2018 10:50 PM) Cholesterol [...] 130 mg/dL. Specimen Blood Performing Organization Address [facility] Phone Number MAIN LAB [address] [place] [address] * PHOSPHORUS (01/08/2018 10:50 PM) Phosphorus 4.1Comment: NOTE NEW REFERENCE 2.0 - 4.5 MG/DL [facility] RANGES Specimen Blood Performing Organization Address [facility] Phone Number MAIN LAB [address] [place] [address] * PTT (APTT) (01/08/2018 10:50 PM) APTT 20.2 20.0 - 36.0 SEC MAIN LAB Specimen Blood Performing Organization Address [facility] Phone Number MAIN LAB [address] [place] [address] * PROTIME INR (PT) (01/08/2018 10:50 PM) INR 1.4 (H) 0.8 - 1.2 MAIN LAB Specimen Blood Performing Organization [facility] Phone Number MAIN LAB [address] [place] [address] * OPIATES 300 OR GREATER-URINE RANDOM (01/08/2018 8:30 PM) Opiates 300 NEG NEG-NEG MAIN LAB Comment: RESULTS WERE OBTAINED BY IMMUNOASSAY AND ARE PRESUMPTIVE ONLY. POSITIVE INDICATES THE PRESENCE OF SUBSTANCE WITH CHARACTERISTICS SIMILAR TO DRUG-DRUG CLASS OR METABOLITE IN CONC. EQUAL TO OR EXCEEDING VALUES LISTED. OPIATES 300 NG/ML Specimen Urine Performing Organization Address [facility] Phone Number MAIN LAB [address] [place] [address] * OXYCODONE URINE SCREEN (01/08/2018 8:30 PM) Oxycodone, Urine NEG NEG-NEG MAIN LAB Comment: RESULTS WERE OBTAINED BY IMMUNOASSAY AND ARE PRESUMPTIVE ONLY. POSITIVE INDICATES THE PRESENCE OF SUBSTANCE WITH CHARACTERISTICS SIMILAR TO DRUG-DRUG CLASS OR METABOLITE IN CONC. EQUAL TO OR EXCEEDING VALUES LISTED. OXYCODONE 300 NG/ML Specimen Urine - Urine Performing Organization Address [facility] Phone Number MAIN LAB [address] [place] [address] * METHADONE-URINE SCREEN (01/08/2018 8:30 PM) Methadone NEG NEG-NEG [facility] Comment: RESULTS WERE OBTAINED BY IMMUNOASSAY AND ARE PRESUMPTIVE ONLY. POSITIVE INDICATES THE PRESENCE OF SUBSTANCE WITH CHARACTERISTICS SIMILAR TO DRUG-DRUG CLASS OR METABOLITE IN CONC. EQUAL TO OR EXCEEDING VALUES LISTED. METHADONE 300 NG/ML Specimen Urine Performing Organization Address [facility] Phone Number [facility] [address] [place] [address] * PHENCYCLIDINES-URINE RANDOM (01/08/2018 8:30 PM) Phencyclidine (PCP) NEG NEG-NEG [facility] Comment: RESULTS WERE OBTAINED BY IMMUNOASSAY AND ARE PRESUMPTIVE ONLY. POSITIVE INDICATES THE PRESENCE OF SUBSTANCE WITH CHARACTERISTICS SIMILAR TO DRUG-DRUG CLASS OR METABOLITE IN CONC. EQUAL TO OR EXCEEDING VALUES LISTED. PHENCYCLIDINE (PCP)25 NG/ML Specimen Urine - Urine Performing Organization Address [facility] Phone Number [facility] [address] [place] [address] * COCAINE-URINE RANDOM (01/08/2018 8:30 PM) Cocaine-Urine NEG NEG-NEG [facility] Comment: RESULTS WERE OBTAINED BY IMMUNOASSAY AND ARE PRESUMPTIVE ONLY. POSITIVE INDICATES THE PRESENCE OF SUBSTANCE WITH CHARACTERISTICS SIMILAR TO DRUG-DRUG CLASS OR METABOLITE IN CONC. EQUAL TO OR EXCEEDING VALUES LISTED. COCAINE 300 NG/ML Specimen Urine - Urine Performing Organization Address [facility] Phone Number [facility] [address] [place] [address] * CANNABINOIDS-URINE RANDOM (01/08/2018 8:30 PM) THC NEG NEG-NEG [facility] Comment: RESULTS WERE OBTAINED BY IMMUNOASSAY AND ARE PRESUMPTIVE ONLY. POSITIVE INDICATES THE PRESENCE OF SUBSTANCE WITH CHARACTERISTICS SIMILAR TO DRUG-DRUG CLASS OR METABOLITE IN CONC. EQUAL TO OR EXCEEDING VALUES LISTED. CANNABINOIDS 50 NG/ML Specimen Urine - Urine Performing Organization Address [facility] Phone Number [facility] [address] [place] [address] * BENZODIAZEPINES-URINE RANDOM (01/08/2018 8:30 PM) Benzodiazepines POS (A) NEG-NEG [facility] Comment: RESULTS WERE OBTAINED BY IMMUNOASSAY AND ARE PRESUMPTIVE ONLY. POSITIVE INDICATES THE PRESENCE OF SUBSTANCE WITH CHARACTERISTICS SIMILAR TO DRUG-DRUG CLASS OR METABOLITE IN CONC. EQUAL TO OR EXCEEDING VALUES LISTED. BENZODIAZEPINES 200 NG/ML Specimen Urine - Urine Performing Organization Address [facility] Phone Number [facility] [address] [place] [address] * BARBITURATES-URINE RANDOM (01/08/2018 8:30 PM) Barbiturates,Urine NEG NEG-NEG [facility] Comment: RESULTS WERE OBTAINED BY IMMUNOASSAY AND ARE PRESUMPTIVE ONLY. POSITIVE INDICATES THE PRESENCE OF SUBSTANCE WITH CHARACTERISTICS SIMILAR TO DRUG-DRUG CLASS OR METABOLITE IN CONC. EQUAL TO OR EXCEEDING VALUES LISTED. BARBITURATES 200 NG/ML Specimen Urine - Urine Performing Organization Address [facility] Phone Number MAIN LAB [address] [place] [address] * AMPHETAMINES-URINE RANDOM (01/08/2018 8:30 PM) Amphetamines NEG NEG-NEG MAIN LAB Comment: RESULTS WERE OBTAINED BY IMMUNOASSAY AND ARE PRESUMPTIVE ONLY. POSITIVE INDICATES THE PRESENCE OF SUBSTANCE WITH CHARACTERISTICS SIMILAR TO DRUG-DRUG CLASS OR METABOLITE IN CONC. EQUAL TO OR EXCEEDING VALUES LISTED. AMPHETAMINES 1000 NG/ML Specimen Urine - Urine Performing Organization [facility] Phone Number MAIN LAB [address] [place] [address] * CULTURE-URINE W/SENSITIVITY (01/08/2018 8:30 PM) Battery Name URINE CULTURE MAIN LAB Specimen Description URINE MAIN LAB Special Requests NONE MAIN LAB Culture <10,000 organisms/ml MAIN LAB MIXED CONTAMINANTS Report Status FINAL MAIN LAB 01/09/2018 Specimen Urine - Urine Performing Organization [facility] Phone Number MAIN LAB [address] [place] [address] * URINALYSIS, MICROSCOPIC (01/08/2018 4:51 PM) WBCs,UA 2-10 0 - 2 /HPF MAIN LAB RBCs,UA 0-2 0 - 3 /HPF MAIN LAB MucousUA 1+ MAIN LAB Bacteria,UA FEW (A) NEG-NEG MAIN LAB Squamous Epithelial Cells 2-5 0 - 5 MAIN LAB Specimen Urine - Urine Performing Organization Address [facility] Phone Number MAIN LAB [address] [place] [address] * URINALYSIS DIPSTICK (01/08/2018 4:51 PM) Color,UA YELLOW [facility] Turbidity,UA CLEAR CLEAR-CLEAR [facility] Specific [place]-Urine 1.017 1.003 - 1.035 [facility] pH,UA 5.0 5.0 - 8.0 [facility] Protein,UA NEG NEG-NEG [facility] Glucose,UA NEG NEG-NEG [facility] Ketones,UA NEG NEG-NEG [facility] Bilirubin,UA NEG NEG-NEG [facility] Blood,UA NEG NEG-NEG [facility] Urobilinogen,UA INCREASED (A) NORM-NORMAL [facility] Nitrite,UA POS (A) NEG-NEG [facility] Leukocytes,UA 1+ (A) NEG-NEG [facility] Urine Ascorbic Acid, UA POS (A) NEG-NEG [facility] Comment: Ascorbic acid is found in various food supplies and dietary supplements, and is reported to cause strong interference with Macroscopic Urinalysis testing for glucose, blood and nitrite, and can result in a false negative result. Specimen Urine - Urine Performing Organization Address City/State/Zipcode Phone Number MAIN LAB [address] [place] [address] * CT ABD/PELV WO CONTRAST (01/08/2018 3:49 [...] Interface, Radiant Results - 01/08/2018 4:20 PM [employer]ER CT ABDOMEN AND PELVIS Clinical Indication: Female, [...] None. Bowel contrast: None. Comparison: CT pelvis . FINDINGS: Limited evaluation without the use of [...] Interface, Radiant Results - 01/08/2018 5:21 PM [employer] ENGINEER EXAM: CT HEAD HISTORY: Fell in shower [...] City/State/Zipcode Phone Number [facility] RESULTS * COMPREHENSIVE METABOLIC PANEL (01/08/2018 2:50 PM) Sodium 139 137 - 147 MMOL/L [facility] Potassium 4.3 3.5 - 5.1 MMOL/L [facility] Chloride 104 98 - 110 MMOL/L [facility] Glucose 100 70 - 100 MG/DL [facility] Blood Urea Nitrogen 20 7 - 25 MG/DL [facility] Creatinine 1.05 (H) 0.4 - 1.00 MG/DL [facility] Calcium 9.3 8.5 - 10.6 MG/DL [facility] Total Protein 8.4 (H) 6.0 - 8.0 G/DL [facility] Total Bilirubin 0.4 0.3 - 1.2 MG/DL [facility] Albumin 3.0 (L) 3.5 - 5.0 G/DL [facility] Alk Phosphatase 140 (H) 25 - 110 U/L [facility] AST (SGOT) 26 7 - 40 U/L [facility] CO2 25 21 - 30 MMOL/L [facility] ALT (SGPT) 15 7 - 56 U/L [facility] Anion Gap 10 3 - 12 [facility] eGFR Non 55 (L) >60 mL/min [facility] Comment: The [...] for questions. Specimen Blood Performing Organization Address City/[facility]/Zipcode Phone Number [facility] [address] [place] [address] * CBC AND DIFF (01/08/2018 2:50 PM) White Blood Cells 6.3 4.5 - 11.0 K/UL [facility] RBC 3.88 (L) 4.0 - 5.0 M/UL [facility] Hemoglobin 10.1 (L) 12.0 - 15.0 GM/DL [facility] Hematocrit 31.0 (L) 36 - 45 % [facility] MCV 79.8 (L) 80 - 100 FL [facility] MCH 26.0 26 - 34 PG [facility] MCHC 32.6 32.0 - 36.0 G/DL [facility] RDW 16.0 (H) 11 - 15 % [facility] Platelet Count 405 (H) 150 - 400 K/UL [facility] MPV 7.2 7 - 11 FL [facility] Neutrophils 58 41 - 77 % [facility] Lymphocytes 26 24 - 44 % [facility] Monocytes 14 (H) 4 - 12 % [facility] Eosinophils 1 0 - 5 % [facility] Basophils 1 0 - 2 % [facility] Absolute Neutrophil Count 3.60 1.8 - 7.0 K/UL [facility] Absolute Lymph Count 1.60 1.0 - 4.8 K/UL [facility] Absolute Monocyte Count 0.90 (H) 0 - 0.80 K/UL [facility] Absolute Eosinophil Count 0.10 0 - 0.45 K/UL [facility] Absolute Basophil Count 0.00 0 - 0.20 K/UL [facility] Specimen Blood Performing Organization Address City/[facility]/Zipcode Phone Number [facility] [address] [place] [address] in this encounter Visit Diagnoses Diagnosis Pain of both hip joints - Primary Falls frequently Personal history of fall Acute cystitis with hematuria Acute cystitis Hip pain, left Pain in joint, pelvic region and thigh Hip pain Pain in joint, pelvic region and thigh ALISSA (acute kidney injury) (HCC) Acute kidney failure, unspecified Urinary tract infection without hematuria Admitting Diagnoses Diagnosis Hip pain Pain in joint, pelvic region and thigh Falls frequently Personal history of fall Administered Medications Medication Order MAR Action Action Date Dose Rate Site acetaminophen (TYLENOL) tablet 650 mg Given 01/12/2018 650 mg 650 mg, Oral, EVERY 6 HOURS PRN, 19:34 [employer] Starting Emily 01/08/18 at 2037, Until Discontinued, Pain non-opioid: may be used alone or in combination with opioid analgesia, TOTAL ACETAMINOPHEN DOSE NOT TO EXCEED 4GM DAILY Given 01/13/2018 650 mg 05:07 [employer] Given 01/13/2018 650 mg 16:57 [employer]ER amitriptyline/gabapentin/emu oil(#) Given 01/12/201810 % topical cream 21:33 [employer]ER Topical, EVERY 8 HOURS, First dose on Emily 01/08/18 at 2200, Until Discontinued, Apply to affected area Given 01/13/2018 06:28 [employer]ER Given 01/13/2018 15:04 [employer] aspirin chewable tablet 81 mg Given 01/11/2018 81 mg 81 mg, Oral, DAILY, First dose on Fri 08:16 [employer]ER 01/09/18 at 0900, Until Discontinued Given 01/12/2018 81 mg 08:03 [employer] ENG[employer]ER Given 01/13/2018 81 mg 08:51 [employer]ER bethanechol chloride (URECHOLINE) tablet Given 01/12/2018 10 mg 10 mg 21:32 [employer] ENGINEER 10 mg, Oral, THREE TIMES DAILY, First dose on Fri01/09/18 at 1615, Until Discontinued Given 01/13/2018 10 mg 08:50 [employer]ER Given 01/13/2018 10 mg 15:00 [employer] ENG[employer]ER clonazePAM (KLONOPIN) tablet 1 mg Given 01/12/2018 1 mg 1 mg, Oral, THREE TIMES DAILY, First 21:32 [employer]ER dose on Fri01/08/18 at 2100, Until Discontinued Given 01/13/2018 1 mg 08:51 [employer]ER Given 01/13/2018 1 mg 15:00 [employer] ENGINEER cloNIDine (CATAPRESS) tablet 0.1 mg 0.1 mg, Oral, AT BEDTIME DAILY, First dose on Fri01/13/18 at 2100, Until Discontinued, Hold for systolic BP < 90 fentaNYL (DURAGESIC) 50 mcg/hr patch 1 Patch/Topica 01/10/2018 1 patch Back, Lower patch l Applied 09:09 [employer] Right 1 patch, Transdermal, Administer over 48 Hours, EVERY 72 HOURS, First dose on 01/10/18 at 0800, Until Discontinued Patch/Topical Applied 01/13/2018 1 patch Back 08:52 [employer]ER fluoxetine (PROZAC) capsule 80 mg Given 01/11/2018 80 mg 80 mg, Oral, DAILY, First dose on Fri 08:16 [employer] ENGINEER 01/09/18 at 1615, Until Discontinued Given 01/12/2018 80 mg 08:03 [employer] ENG[employer]ER Given 01/13/2018 80 mg 08:51 [employer]ER melatonin tablet 3 mg Given 01/10/2018 3 mg 3 mg, Oral, AT BEDTIME DAILY, First dose 21:11 [employer]ER on Emily 01/08/18 at 2100, Until Discontinued Given 01/11/2018 3 mg 21:21 [employer]ER Given 01/12/2018 3 mg 21:32 [employer] ENGINEER nabumetone (RELAFEN) tablet 500 mg Given 01/12/2018 500 mg 500 mg, Oral, DAILY WITH BREAKFAST, 17:07 [employer]ER First dose on 01/12/18 at 1645, Until Discontinued Given 01/13/2018 500 mg 08:51 [employer]ER pregabalin (LYRICA) capsule 150 mg Given 01/12/2018 150 mg 150 mg, Oral, THREE TIMES DAILY, First 21:32 [employer]ER dose on Emily 01/08/18 at 2100, Until Discontinued Given 01/13/2018 150 mg 08:51 [employer] ENGINEER Given 01/13/2018 150 mg 15:00 [employer] ENGINEER senna/docusate (SENOKOT-S) tablet 1 Given 01/12/2018 1 tablet tablet 08:03 [employer] ENGINEER 1 tablet, Oral, TWICE DAILY, First dose on 01/11/18 at 1015, Until Discontinued, Hold for loose stools Given 01/12/2018 1 tablet 21:32 [employer] ENGINEER Given 01/13/2018 1 tablet 08:51 [employer] ENGINEER SUMAtriptan succinate (IMITREX) tablet Given 01/11/2018 100 mg 100 mg 15:30 [employer] ENGINEER 100 mg, Oral, NEEDED, Starting Emily 01/08/18 at 1958, Until Discontinued, headache Medication Order MAR Action Action Date Dose Rate Site cefTRIAXone (ROCEPHIN) IVP 1 g Given 01/08/2018 1 g 1 g, Intravenous, ONCE, 1 dose, Emily 18:11 [employer]INEER 01/08/18 at 1745, INSTR: IV PUSH -- RECONSTITUTE EACH 1 GM WITH 10 MLS 0.9% NACL cefTRIAXone (ROCEPHIN) IVP 1 g Given 01/09/2018 1 g 1 g, Intravenous, EVERY 24 HOURS, 2 18:03 [employer] ENG[employer]ER doses, First dose on Fri01/09/18 at 1800, Last dose on Fri01/10/18 at 1800, INSTR: IV PUSH -- RECONSTITUTE EACH 1 GM WITH 10 MLS 0.9% NACL Given 01/10/2018 1 g 17:59 [employer] cloNIDine (CATAPRESS) tablet 0.1 mg Given 01/12/2018 0.1 mg 0.1 mg, Oral, TWICE DAILY, First dose on 08:04 [employer] Emily 01/08/18 at 2100, Until Discontinued, Hold for systolic BP < 90 Given 01/12/2018 0.1 mg 21:32 [employer] Given 01/13/2018 0.1 mg 08:51 [employer] docusate (COLACE) capsule 100 mg Given 01/10/2018 100 mg 100 mg, Oral, TWICE DAILY, First dose on 09:10 [employer] Emily 01/08/18 at 2100, Until Discontinued, Hold for loose stools Given 01/10/2018 100 mg 21:12 [employer] Given 01/11/2018 100 mg 08:17 [employer] enoxaparin (LOVENOX) syringe 40 mg Given 01/10/2018 40 mg Abdominal 40 mg, Subcutaneous, DAILY, First dose 09:10 [employer] Tissue on Fri01/09/18 at 0900, Until Discontinued, For patients undergoing surgery: Consult physician in advance -- enoxaparin is an anticoagulant and may need to be held for 12hr prior to surgery or invasive procedures. NOTE: This is a HIGH ALERT Medication. Given 01/11/2018 40 mg Abdomen:LLQ 08:16 [employer] Given 01/12/2018 40 mg Abdomen:RLQ 08:04 [employer] lactated ringers infusion Given - New 01/08/2018 1,000 mL 125 mL/hr 1,000 mL, 1,000 mL, Intravenous, at 125 Bag 22:28 [employer] mL/hr, ONCE, 1 dose, Emily 01/08/18 at 2000 tiZANidine (ZANAFLEX) tablet 4 mg Given 01/08/2018 4 mg 4 mg, Oral, THREE TIMES DAILY, First 22:17 [employer] dose on Emily 01/08/18 at 2100, Until Discontinued Given 01/09/2018 4 mg 09:51 [employer] in this encounter
--- OUTSIDE RECORDS SUMMARY | 2018-01-13 20:24 | XMS REPORT ---
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 Active 251915127 Problem Hypertension I10 Active 86592513 Problem Arthritis M19.90 Active 9704496 Problem 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 Active 69769826 Problem Anxiety F41.9 Active 43970361 Problem Unspecified episodic mood disorder F39 Active 76000659 Problem Left hip pain M25.552 Active 76844475 ALLERGIES No Information ENCOUNTERS Encounter Location Date Diagnosis [facility] [address] [facility] [id number] [address] Jan, [facility] [id number] [address] Dec, Arthritis M19.90 [facility] [id number] [address] 2454 Dec, Unspecified episodic mood disorder F39 [facility] [id number] [place] [address] 10701- 1758 Dec, [facility] [id number] [place] [address] 60441- 2985 Dec, [facility] [id number] [place] [address] 79115- 7655 Dec, [facility] [id number] [place] [address] 92266- 8735 Dec, Difficulty urinating R39.198 [facility] [address] [address]79- 4447 Dec, Left hip pain M25.552 ; Dysuria R30.0 ; Anxiety F41.9 and Acute cystitis without hematuria N30.00 [facility] [address] 57663- 0394 Dec, Unspecified episodic mood disorder F39 [facility] [id number] [place] [address] 13945- 7982 Nov, Arthritis M19.90 [facility] [id number] [place] [address] 45276- 5172 Nov, [facility] [id number] [place] [address] 98547- 7716 Nov, Chronic hepatitis C without hepatic coma B18.2 and Screening for malignant neoplasm of breast Z12.31 [facility] [id number] [place] [address] 16608- 2415 Nov, [facility] [id number] [place] [address] 02746- 7069 Nov, Chronic hepatitis C without hepatic coma B18.2 [facility] [id number] [place] [address] 92613- 2484 Nov, [facility] [id number] [place] [address] 66717- 1893 Nov, Arthritis M19.90 and Unspecified episodic mood disorder F39 [facility] [id number] [place] [address] 47709- 3372 Oct, [facility] [id number] [place] [address] 62562- 6940 Oct, Chronic hepatitis C without hepatic coma B18.2 and Encounter for immunization Z23 [facility] [address] 90695- 9047 Oct, [facility] [id number] [place] [address] 97852- 9324 Oct, Arthritis M19.90 and Unspecified episodic mood disorder F39 [facility] [id number] [place] [address] 96852- 1762 Sep, Chronic hepatitis C without hepatic coma B18.2 [facility] [id number] [place] [address] 62071- 9345 Sep, Gastroesophageal reflux disease, esophagitis presence not specified K21.9 and Other chronic pain G89.29 [facility] [id number] [place] [address] 95630- 1495 Sep, [facility] [id number] [place] [address] 27478- 3852 Sep, [facility] [id number] [place] [address] 33991- 5667 Sep, Chronic hepatitis C without hepatic coma B18.2 [facility] [id number] [place] [address] 56056- 2347 Sep, 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 [facility] [id number] [place] [address] 66605- 7102 Sep, Arthritis M19.90 [facility] [id number] [place] [address] 20032- 8893 Sep, [address] [address]- 1499 Sep, Unspecified episodic mood disorder F39 [facility] [id number] [place] [address] 90602976- 8750 Aug, [facility] [id number] [place] [address] [id number] Aug, [facility] [id number] [place] [address] 14823- 6344 Aug, Arthritis M19.90 [facility] [id number] [place] [address] 03611- 5221 Aug, [facility] [id number] [place] [address] 93591- 4967 Aug, Obesity (BMI 30.0-34.9) E66.9 ; Unspecified episodic mood disorder F39 and Hypertension I10 [facility] [id number] [place] [address] 90832- 9324 Aug, Unspecified episodic mood disorder F39 [facility] [id number] [place] [address] 77653- 4940 Aug, [facility] [address] [address]- 7351 Jul, Unspecified episodic mood disorder F39 [facility] [address], [place] [address]- 7634 Jul, [facility] [address], [place] [address]- 4403 Jul, Arthritis M19.90 [facility] [id number] [place] [address] 51197- 4241 Jul, Left hip pain M25.552 ; Hypertension I10 ; Other obesity due to excess calories E66.09 and Body mass index (BMI) of 34.0-34.9 in adult Z68.34 [facility] [id number] [place] [address] 51382- 7278 Jul, Unspecified episodic mood disorder F39 [facility] [id number] [place] [address] 44227- 1867 June, Gastroesophageal reflux disease, esophagitis presence not specified K21.9 [facility] [address] [address]- 5741 June, [facility] [id number] [place] [address] 94019- 6252 June, [facility] [id number] [place] [address] 75875- 2703 June, Arthritis M19.90 [facility] [id number] [place] [address] 49026- 7014 June, [facility] [id number] [place] [address] 35331- 2917 June, [facility] [id number] [place] [address] 96024- 7756 June, Unspecified episodic mood disorder F39 [facility] [id number] [place] [address] 02232- 7254 May, Unspecified episodic mood disorder F39 [facility] [id number] [place] [address] 30683- 4880 May, [facility] [id number] [place] [address] 20393- 0269 May, Arthritis M19.90 [facility] [id number] [place] [address] 03572 -1491 May, Dysuria R30.0 ; Abscess L02.91 and Acute cystitis without hematuria N30.00 [facility] [address] [address]- 6102 May, 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 ; Unspecified episodic mood disorder F39 ; Combined drug dependence excluding opioids, 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 ; Anxiety F41.9 and Other psychoactive substance dependence, 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 [facility] [id number] [place] [address] 00263- 1265 May, [facility] [id number] [place] [address] 29457- 9603 May, 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 ; Unspecified episodic mood disorder F39 ; Combined drug dependence excluding opioids, 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 ; Other psychoactive substance dependence, 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 and Anxiety F41.9 [facility] [id number] [place] [address] 90156- 9685 May, Other chronic pain G89.29 ; Left hip pain M25.552 ; Hypertension I10 ; 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, 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 and Unspecified episodic mood disorder F39 [facility] [id number] [place] [address] 64132- 5893 Apr, [facility] [id number] [place] [address] 92537 -7699 Apr, Neck pain M54.2 ; Left hip pain M25.552 and Fall, initial encounter W19.XXXA [facility] [id number] [place] [address] 36947- 2016 Apr, Unspecified episodic mood disorder F39 ; Combined drug dependence excluding opioids, 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 ; Anxiety F41.9 ; Other psychoactive substance dependence, 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 and 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 [facility] [id number] [place] [address] 24760- 4322 Apr, [facility] [id number] [place] [address] 81366- 6587 Apr, Arthritis M19.90 and Unspecified episodic mood disorder F39 [facility] [id number] [place] [address] 34242- 9028 Apr, Unspecified episodic mood disorder F39 [facility] [address] [place] [address]- 1779 Apr, [facility] [id number] [place] [address] 25398- 3091 Apr, [facility] [id number] [place] [address] 34680- 4149 Apr, Unspecified episodic mood disorder F39 ; Combined drug dependence excluding opioids, 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 ; Anxiety F41.9 ; Other psychoactive substance dependence, 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 and 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 [facility] [id number] [place] [address] 12226- 8760 Mar, Unspecified episodic mood disorder F39 [facility] [id number] [place] [address] 86204- 8726 Mar, Gastroesophageal reflux disease, esophagitis presence not specified K21.9 [facility] [id number] [place] [address] 70706- 7229 Mar, Arthritis M19.90 and Unspecified episodic mood disorder F39 [facility] [id number] [place] [address] 80786- 4883 Feb, [facility] [id number] [place] [address] 07809- 8074 Feb, [facility] [id number] [place] [address] 26994- 2535 Feb, [facility] [id number] [place] [address] 78828- 8384 Feb, Arthritis M19.90 [facility] [id number] [place] [address] 40806- 5977 Feb, Non-pressure chronic ulcer of right calf, 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 ; Unspecified episodic mood disorder F39 and Left hip pain M25.552 [facility] [id number] [place] [address] 83329- 4401 Feb, [address] [address] [address]- 3826 Feb, [facility] [id number] [place] [address] 93697- 8910 Jan, Arthritis M19.90 [facility] [id number] [place] [address] 69343- 6809 Jan, Left hip pain M25.552 and Non-pressure chronic ulcer of right calf, 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 [facility] [id number] [place] [address] 57581- 4588 Jan, Chronic hepatitis C without hepatic coma B18.2 [place] [id number] [place] [address] 35553- 5329 Jan, Encounter for immunization Z23 ; Venous insufficiency ( chronic) (peripheral) I87.2 ; Non-pressure chronic ulcer of unspecified calf limited to breakdown of skin L97.201 and Gastroesophageal reflux disease, esophagitis presence not specified K21.9 [place] [id number] [place] [address] 42169- 4306 Jan, [facility] [id number] [place] [address] 89449- 2327 Jan, Chronic hepatitis C without hepatic coma B18.2 and Encounter for immunization Z23 [facility] [id number] [place] [address] 81727- 2256 Jan, Arthritis M19.90 [facility] [address] [address]- 4507 Jan, [facility] [id number] [place] [address] 01785- 8540 Dec, [facility] [id number] [place] [address] 68916- 3909 Dec, Unspecified episodic mood disorder F39 [facility] [id number] [place] [address] 73844- 0077 Dec, Arthritis M19.90 [facility] [id number] [place] [address] 71906- 8490 Dec, Arthritis M19.90 [facility] [id number] [place] [address] 28507- 5114 Nov, [facility] [id number] [place] [address] 03013- 4923 Nov, [facility] [id number] [place] [address] 13757- 6250 Nov, Other psychoactive substance dependence, 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 ; 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, 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 and Chronic hepatitis C without hepatic coma B18.2 [facility] [id number] [place] [address] 45940- 0908 Nov, Arthritis M19.90 [facility] [id number] [place] [address] 64624 -6871 Oct, Partial thickness burn of abdomen, initial encounter T21.22XA [facility] [id number] [place] [address] 80965- 8046 Oct, [facility] [id number] [place] [address] 76587- 3733 Sep, Arthritis M19.90 [facility] [id number] [place] [address] 19908- 4231 Sep, [facility] [id number] [place] [address] 16885- 0586 Sep, [facility] [id number] [place] [address] 31644- 9860 Sep, Unspecified episodic mood disorder F39 ; Chronic hepatitis C without hepatic coma B18.2 and Left hip pain M25.552 [facility] [address] [place] [address] 03885- 9104 Sep, Arthritis M19.90 and Left hip pain M25.552 [facility] [address] [address]- 2672 Aug, [facility] [id number] [place] [address] 74667- 2546 Aug, [facility] [id number] [place] [address] 22378- 4873 Aug, Chronic hepatitis C without hepatic coma B18.2 [facility] [id number] [place] [address] 61863- 1788 Aug, [facility] [id number] [place] [address] 09810- 8032 Aug, Chronic hepatitis C without hepatic coma B18.2 [facility] [id number] [place] [address] 63275- 9866 Aug, 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, 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 [facility] [id number] [place] [address] 52880- 6199 Aug, [facility] [id number] [place] [address] 35938- 7153 Aug, Chronic hepatitis C without hepatic coma B18.2 and Hypertension I10 [facility] [address], [place] [address]- 7069 Jul, [facility] [id number] [place] [address] 89634- 3983 June, [facility] [id number] [place] [address] 16813- 4941 Apr, Fibromyalgia M79.7 ; Left hip pain M25.552 and Decubitus ulcer of sacral region, stage 1 L89.151 [facility] [address] [address]- 0825 Apr, [facility] [id number] [place] [address] 31694- 2447 Apr, [facility] [id number] [place] [address] 12412- 4615 Feb, [facility] [id number] [place] [address] 05003- 6449 Dec, Anxiety F41.9 ; Combined drug dependence excluding opioids, 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 and Unspecified episodic mood disorder F39 [facility] [id number] [place] [address] 73197- 0412 Dec, [facility] [id number] [place] [address] 58793- 8615 Nov, [facility] [id number] [place] [address] 16312- 6712 Nov, [facility] [id number] [place] [address] 96177- 9191 Nov, 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 and Anxiety F41.9 [facility] [id number] [place] [address] 88682- 0572 Oct, [facility] [id number] [place] [address] 13536 -0764 14 Oct, 2015 Open wound of left thigh, initial encounter S71.102A [facility] [id number] [place] [address] 53958- 3169 Oct, [facility] [id number] [place] [address] 07395- 3262 Sep, Unspecified episodic mood disorder F39 ; Other disorder of impulse control 312.39 ; Combined drug dependence excluding opioids, 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 and Anxiety F41.9 [facility] [id number] [place] [address] 00238- 5213 Sep, Other disorder of impulse control 312.39 ; Combined drug dependence excluding opioids, 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 ; Anxiety F41.9 and Unspecified episodic mood disorder F39 [facility] [id number] [place] [address] 39008- 1981 Sep, Other chronic pain G89.29 [facility] [address] [address]- 4760 Sep, [facility] [address], [place] [address]- 0660 Sep, [facility] [address], [place] [address]- 1257 Aug, [facility] [id number] [place] [address] 30345- 5521 Aug, [facility] [id number] [place] [address] 00402- 6240 Aug, [facility] [id number] [place] [address] 95758- 0965 Jul, [facility] [id number] [place] [address] 86428- 6766 Jul, [facility] [id number] [place] [address] 40608- 9281 Jul, [facility] [id number] [place] [address] 88602- 3974 17 Jul, 2015 Arthritis M19.90 ; Chronic hepatitis C without hepatic coma B18.2 and Left hip pain M25.552 [facility] [address] [address]- 0901 Jul, Left knee pain M25.562 [facility] [address] [address]- 4969 Jul, Combined drug dependence excluding opioids, 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 ; Anxiety F41.9 ; Other disorder of impulse control 312.39 and Unspecified episodic mood disorder F39 [facility] [address] [address]- 5776 13 Jul, 2015 Left knee pain M25.562 [facility] [address] [address]- 7313 Jul, Left knee pain M25.562 and Left hip pain M25.552 [facility] [id number] [place] [address] 74202- 9129 Jul, [facility] [id number] [place] [address] 36509- 7828 June, [facility] [id number] [place] [address] 78440- 1705 June, Combinations of drug dependence excluding opioid type drug, 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 ; Other disorder of impulse control 312.39 ; Unspecified episodic mood disorder F39 and Anxiety F41.9 [facility] [id number] [place] [address] 22595- 3257 June, Other fatigue R53.83 ; Headache R51 and Left knee pain M25.562 [facility] [id number] [place] [address] 16033- 7748 June, Unspecified episodic mood disorder F39 ; Combinations of drug dependence excluding opioid type drug, 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 ; Other disorder of impulse control 312.39 and Anxiety F41.9 [facility] [id number] [place] [address] 64812- 1805 June, Anxiety F41.9 [facility] [id number] [place] [address] 38400- 7236 June, Pain in left knee M25.562 [facility] [id number] [place] [address] 23946- 7843 June, Anxiety F41.9 and Combinations of drug dependence excluding opioid type drug, 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 [facility] [id number] [place] [address] 96906- 5302 June, Unspecified episodic mood disorder 296.90 ; Combinations of drug dependence excluding opioid type drug, 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 and Other disorder of impulse control 312.39 [facility] [id number] [place] [address] 18570- 6746 June, Anxiety F41.9 and Unspecified episodic mood disorder 296.90 [facility] [id number] [place] [address] 44593- 3513 May, Arthritis M19.90 [facility] [id number] [place] [address] 65489- 3810 May, Arthritis M19.90 [facility] [id number] [place] [address] 32243- 1296 May, Anxiety F41.9 ; Combinations of drug dependence excluding opioid type drug, 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 and Other disorder of impulse control 312.39 [facility] [id number] [place] [address] 03358- 0372 May, Left knee pain M25.562 [facility] [id number] [place] [address] 72233- 2218 May, Arthritis M19.90 [facility] [id number] [place] [address] 46787- 2833 May, [facility] [id number] [place] [address] 08716- 5177 May, Anxiety F41.9 ; Unspecified episodic mood disorder 296.90 ; Combinations of drug dependence excluding opioid type drug, 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 and Other disorder of impulse control 312.39 [facility] [id number] [place] [address] 54838- 9772 May, Left knee pain M25.562 [facility] [id number] [place] [address] 18863- 9298 May, Left knee pain M25.562 ; Combinations of drug dependence excluding opioid type drug, 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 ; Other disorder of impulse control 312.39 ; Fibromyalgia M79.7 ; Hypertension I10 ; Unspecified episodic mood disorder 296.90 and Left hip pain M25.552 [facility] [id number] [place] [address] 48344- 5023 May, Unspecified episodic mood disorder 296.90 ; Other disorder of impulse control 312.39 ; Combinations of drug dependence excluding opioid type drug, 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 and Anxiety F41.9 [facility] [id number] [place] [address] 25226- 2352 May, Left knee pain M25.562 ; Combinations of drug dependence excluding opioid type drug, 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 ; Other disorder of impulse control 312.39 ; Fibromyalgia M79.7 ; Hypertension I10 ; Unspecified episodic mood disorder 296.90 and Left hip pain M25.552 [facility] [id number] [place] [address] 57940- 3663 May, Anxiety F41.9 ; Unspecified episodic mood disorder 296.90 ; Other disorder of impulse control 312.39 and Combinations of drug dependence excluding opioid type drug, 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 [facility] [id number] [place] [address] 84498- 0997 Apr, 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 and 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, implants and grafts, initial encounter T84.82XA [facility] [id number] [place] [address] 35480- 4664 Apr, Anxiety F41.9 ; Unspecified episodic mood disorder 296.90 ; Combinations of drug dependence excluding opioid type drug, 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 and Other disorder of impulse control 312.39 [facility] [id number] [place] [address] 81579- 7149 Apr, Arthritis M19.90 [facility] [id number] [place] [address] 73915- 9204 Apr, Anxiety F41.9 ; Unspecified episodic mood disorder 296.90 ; Combinations of drug dependence excluding opioid type drug, 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 and Other disorder of impulse control 312.39 [facility] [id number] [place] [address] 21791- 2128 Apr, Arthritis M19.90 [facility] [id number] [place] [address] 76900- 3088 Apr, [facility] [id number] [place] [address] 87498- 9595 Apr, [facility] [id number] [place] [address] [address] Apr, Unspecified episodic mood disorder 296.90 ; Combinations of drug dependence excluding opioid type drug, 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 ; Other disorder of impulse control 312.39 and Anxiety F41.9 [facility] [id number] [place] [address] 84841 -9609 Apr, Left knee pain M25.562 [facility] [id number] [place] [address] 12700- 6520 Apr, [facility] [id number] [place] [address] 34816- 2914 Mar, Unspecified episodic mood disorder 296.90 ; Anxiety F41.9 ; Other disorder of impulse control 312.39 and Combinations of drug dependence excluding opioid type drug, 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 [facility] [id number] [place] [address] 45395- 8074 Mar, Hyperpigmentation L81.9 [facility] [id number] [place] [address] 56899- 0633 Mar, Arthritis M19.90 and Anxiety F41.9 [facility] [id number] [place] [address] 02124- 9097 Mar, Unspecified episodic mood disorder F39 ; Combined drug dependence excluding opioids, 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 ; 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 and Anxiety F41.9 [facility] [id number] [place] [address] 25030- 7161 12 Mar, 2015 Well woman exam Z01.419 ; Other fatigue R53.83 ; Hot flashes N95.1 ; Depression, unspecified depression type F32.9 and Body mass index (BMI) of 23.0-23.9 in adult Z68.23 [facility] [address] 80393- 3337 11 Mar, 2015 Unspecified episodic mood disorder 296.90 ; Other disorder of impulse control 312.39 and Anxiety F41.9 [facility] [address] 02305- 0371 11 Mar, 2015 Well woman exam Z01.419 ; Encounter for screening for malignant neoplasm of cervix Z12.4 ; Other fatigue R53.83 ; Chills (without fever) R68.83 ; Nausea R11.0 ; Post-menopause Z78.0 ; History of abnormal cervical Pap smear Z87.898 ; History of drug use F19.21 ; History of hip surgery Z98.89 ; History of surgical site infection Z86.19 ; Hot flashes N95.1 ; Anxiety F41.9 ; Depression, unspecified depression type F32.9 ; Headache R51 ; Body mass index (BMI) of 23.0-23.9 in adult Z68.23 ; Hyperpigmentation L81.9 ; Screening for malignant neoplasm of breast Z12.39 and Limited mobility Z74.09 [facility] [address] 27787- 9862 10 Mar, 2015 [facility] [address] 15935- 0320 10 Mar, 2015 [facility] [address] 02224- 1185 08 Mar, 2015 [facility] [address] 23594- 4242 03 Mar, 2015 Other specified complication of internal orthopedic prosthetic devices, implants and grafts, initial encounter T84.89XA ; Fibromyalgia M79.7 ; Hypertension I10 ; Anemia D64.9 ; Insomnia G47.00 ; Anxiety F41.9 ; Arthritis M19.90 and Migraine G43.909 [facility] [address] 86773- 8645 Mar, [facility] [address] [place] [address]- 4769 Feb, [facility] [id number] [place] [address] 47739- 7410 Feb, Arthritis M19.90 and Anxiety F41.9 [facility] [address] [address] 254 Feb, [facility] [id number] [place] [address] 72640 2547 Feb, [facility] [id number] [place] [address] 95356- 8616 Feb, [facility] [id number] [place] [address] 12008- 4551 Feb, [facility] [id number] [place] [address] 30445- 6252 Feb, Anxiety F41.9 [facility] [id number] [place] [address] 73505- 9755 Feb, [facility] [id number] [place] [address] 92287- 8086 Feb, [facility] [id number] [place] [address] 33782- 9176 Feb, 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 and Fibromyalgia M79.7 [facility] [id number] [place] [address] 84751- 2506 Feb, [facility] [address] [address] 2547 Jan, [facility] [id number] [place] [address] 52424- 3512 Jan, [facility] [address] [address]- 1355 Jan, [facility] [address] [address]- 4022 Jan, [facility] [address] [address]- 2676 Jan, [facility] [id number] [place] [address] 46860- 1100 Jan, [facility] [address] [address]- 7385 Jan, [facility] [id number] [place] [address] 28296- 4382 Jan, [facility] [id number] [place] [address] 75988- 8067 Dec, [facility] [id number] [place] [address] 71534- 6910 Dec, Left knee pain M25.562 [facility] [id number] [place] [address] 40795- 4224 Dec, Left knee pain M25.562 [facility] [id number] [place] [address] 17230- 1943 Dec, Fibromyalgia M79.7 ; Hypertension I10 and Arthritis M19.90 [facility] [id number] [place] [address] 88478- 4743 Dec, [facility] [id number] [place] [address] 23080- 8905 Dec, [facility] [id number] [place] [address] 25548- 1504 Dec, [facility] [address] [address]- 1400 Dec, [facility] [id number] [place] [address] 57644- 7019 Nov, [facility] [address] [address]- 1509 Nov, [facility] [id number] [place] [address] 92272- 0971 Nov, [facility] [address] [id number] [address]- 9187 Nov, Hypertension I10 [facility] [address] [id number] [address]- 1005 23 Oct, 2014 [facility] [address] [facility] [id number] [address]- 3916 17 Oct, 2014 [facility] [address] [id number] [address]- 0862 Oct, 2014 [facility] [address] [id number], [place] [address]- 8648 Oct, 2014 [facility] [address] [facility] [id number], [place] [address]- 4069 Oct, [facility] [address] [facility] [id number][place] [address]- 2843 Sep, [facility] [address] [id number], [place] [address]- 8606 Sep, [facility] [address] [facility] [id number] [address]- 6119 Sep, Hip pain associated with recalled total hip arthroplasty hardware 996.77 [facility] [address] [facility] [id number], [place] [address]- 2627 Sep, [facility] [address] [facility] [id number], [place] [address]- 1477 Sep, [facility] [address] [id number][place] [address]- 9672 Sep, [facility] [place] [facility] [address] [facility] [id number], [place] [address]- 0533 Aug, [facility] [address] [facility] [id number] 2206 Jul, [facility] [address] [facility] [id number][place] [address]- 4267 June, [facility] [place] [facility] [address] [id number] [place] [address]- 1842 June, [facility] [place] [facility] [address] [id number] [place] [address]- 0332 June, [facility] [place] [facility] [address] [id number] [place] [address]- 3905 June, [facility] [place] [facility] [address] [id number] [place] [address]- 1710 June, [facility] [place] [facility] [address] [id number] [place] [address]- 9904 June, [facility] [place] [facility] [address] [id number] [place] [address]- 0685 May, [facility] [place] [facility] [address] [id number] [place] [address]- 6819 May, [facility] [place] [facility] [address] [id number] [place] [address]- 0599 May, [facility] [place] [facility] [address] [id number] [place] [address]- 0450 Apr, [facility] [place] [facility] [address] [id number] [place] [address]- 3756 Apr, [facility] [place] [facility] [address] [id number] [place] [address]- 0779 Apr, [facility] [place] [facility] [address] [id number] [place] [address]- 1703 Apr, [facility] [place] [facility] [address] [id number] [place] [address]- 1497 Apr, [facility] [place] [facility] [address] [id number] [place] [address]- 7233 Apr, [facility] [place] [facility] [address] [id number] [place] [address]- 9135 Apr, [facility] [place] [facility] [address] [id number] [place] [address]- 6358 Apr, [facility] [place] [facility] [address] [id number] [place] [address]- 4214 Apr, [facility] [place] [facility] [address] [id number] [place] [address]- 6112 Apr, [facility] [place] [facility] [address] [id number] [place] [address]- 2406 Apr, [facility] [place] [facility] [address] [id number] [place] [address]- 3056 Mar, [facility] [place] [facility] [address] [id number] [place] [address]- 9667 Mar, 2014 [facility] [place] [facility] [address] [id number] [place] [address]- 2104 Mar, [facility] [place] [facility] [address] [id number] [place] [address]- 0428 Mar, [facility] [place] [facility] [address] [id number] [place] [address]- 7342 Mar, [facility] [place] [facility] [address] [id number] [place] [address]- 4332 Mar, [facility] [place] [facility] [address] [facility] [id number] [place] [address]- 4966 Feb, [facility] [place] [facility] [address] [id number] [place] [address]- 1462 Feb, [facility] [place] [facility] [address] [id number] [place] [address]- 2375 Feb, [facility] [place] [facility] [address] [id number] [place] [address]- 7889 Feb, [facility] [place] [facility] [address] [id number] [place] [address]- 6437 Jan, [facility] [place] [facility] [address] [id number] [place] [address]- 1158 Jan, [facility] [place] [facility] [address] [id number] [place] [address]- 4522 Jan, [facility] [place] [facility] [address] [id number] [place] [address]- 1305 Jan, [facility] [place] [facility] [address] [id number] [place] [address]- 2004 Dec, [facility] [place] [facility] [address] [id number] [place] [address]- 1223 Dec, [facility] [place] [facility] [address] [id number] [place] [address]- 4561 Dec, [facility] [place] [facility] [address] [id number] [place] [address]- 1494 Dec, [facility] [place] [facility] [address] [id number] [place] [address]- 8883 Dec, [facility] [place] [facility] [address] [id number] [place] [address]- 3121 Dec, [facility] [place] [facility] [address] [id number] [place] [address]- 1191 Dec, [facility] [place] [facility] [address] [id number], [place] [address]- 2938 Dec, [facility] [place] [facility] [address] [id number][place] [address]- 9229 Dec, [facility] [place] [facility] [address] [id number][place] [address]- 1960 Dec, [facility] [place] [facility] [address] [id number] [address]- 2196 Dec, [facility] [place] [facility] [address] [id number] [address]- 5178 Nov, [facility] [place] [facility] [address] [id number], [place] [address]- 7240 Nov, [facility] [place] [facility] [address] [id number], [place] [address]- 0485 28 Nov, 2013 [facility] [place] [facility] [address] [id number] [place] [address]- 5213 17 Nov, 2013 [facility] [place] [facility] [address] [id number] [place] [address]- 9165 17 Nov, 2013 [facility] [place] [facility] [address] [id number] [place] [address]- 2305 15 Nov, 2013 [facility] [place] [facility] [address] [id number] [place] [address]- 2596 15 Nov, 2013 [facility] [place] [facility] [address] [id number] [place] [address]- 5520 15 Nov, 2013 [facility] [place] [facility] [address] [id number] [place] [address]- 4083 15 Nov, 2013 [facility] [place] [facility] [address] [id number][place] [address]- 1221 14 Nov, 2013 [facility] [place] [facility] [address] [id number] [place] [address]- 1093 14 Nov, 2013 [facility] [place] [facility] [address] [id number] [place] [address]- 2996 14 Nov, 2013 [facility] [place] [facility] [address] [id number], [place] [address]- 8542 14 Nov, 2013 [facility] [place] [facility] [address] [id number], [place] [address]- 7172 13 Nov, 2013 [facility] [place] [facility] [address] [id number], [place] [address]- 7211 13 Nov, 2013 [facility] [place] [facility] [address] [id number] [place] [address]- 2707 11 Nov, 2013 [facility] [place] [facility] [address] [id number][place] [address]- 9398 11 Nov, 2013 [facility] [place] [facility] [address] [id number], [place] [address]- 5133 07 Nov, 2013 [facility] [place] [facility] [address] [id number] [place] [address]- 6140 07 Nov, 2013 [facility] [place] [facility] [address] [id number] [place] [address]- 6505 07 Nov, 2013 [facility] [place] [facility] [address] [id number] [place] [address]- 8646 07 Nov, 2013 [facility] [place] [facility] [address] [id number] [place] [address] 2546 30 Sep, 2013 [facility] [place] [facility] [address] [id number] [place] [address] 2543 30 Sep, 2013 [facility] [place] [facility] [address] [id number] [place] [address]- 7413 26 Oct, 2013 [facility] [place] [facility] [address] [id number] [place] [address]- 2125 26 Oct, 2013 [facility] [place] [facility] [address] [id number] [place] [address]- 9710 22 Oct, 2013 [facility] [place] [facility] [address] [id number] [place] [address] 2547 22 Oct, 2013 [facility] [place] [facility] [address] [id number] [place] [address]- 2540 18 Oct, 2013 [facility] [place] [facility] [address] [id number] [place] [address] 2547 18 Sep, 2013 [facility] [place] [facility] [address] [id number] [place] [address]- 2541 18 Sep, 2013 [facility] [place] [facility] [address] [id number] [place] [address] 2545 18 Sep, 2013 [facility] [place] [facility] [address] [id number] [place] [address] 2546 12 Sep, 2013 [facility] [place] [facility] [address] [id number] [place] [address]- 2545 12 Sep, 2013 [facility] [place] [facility] [address] [id number] [place] [address]- 5096 Oct, [facility] [place] [facility] [address] [id number] [place] [address]- 4010 Oct, [facility] [place] [facility] [address] [id number] [place] [address]- 2133 Sep, [facility] [place] [facility] [address] [id number] [place] [address]- 2651 Sep, [facility] [place] [facility] [address] [id number] [place] [address]- 7223 Sep, [facility] [place] [facility] [address] [id number] [place] [address]- 6855 Sep, [facility] [place] [facility] [address] [id number] [place] [address]- 0096 Sep, [facility] [place] [facility] [address] [id number] [place] [address]- 4878 Sep, [facility] [place] [facility] [address] [id number] [place] [address]- 7779 Sep, [facility] [place] [facility] [address] [id number] [place] [address]- 6377 Sep, [facility] [place] [facility] [address] [id number] [place] [address]- 6020 Sep, [facility] [place] [facility] [address] [id number] [place] [address]- 1493 Sep, [facility] [place] [facility] [address] [id number] [place] [address]- 0731 Sep, [facility] [place] [facility] [address] [id number] [place] [address]- 7008 Sep, [facility] [place] [facility] [address] [id number] [place] [address]- 3828 Sep, [facility] [place] [facility] [address] [id number] [place] [address]- 7157 Sep, [facility] [place] [facility] [address] [id number] [place] [address]- 2208 Sep, [facility] [place] [facility] [address] [id number] [place] [address]- 0509 Sep, [facility] [place] [facility] [address] [id number] [place] [address]- 6292 Sep, [facility] [place] [facility] [address] [id number] [place] [address]- 3116 Sep, [facility] [place] [facility] [address] [id number] [place] [address]- 1755 Aug, [facility] [place] [facility] [address] [id number] [place] [address]- 4674 Aug, [facility] [place] [facility] [address] [id number] [place] [address]- 2896 Aug, [facility] [place] [facility] [address] [id number] [place] [address]- 4222 Aug, [facility] [place] [facility] [address] [id number] [place] [address]- 3441 Aug, [facility] [place] [facility] [address] [id number] [place] [address]- 0806 Aug, [facility] [place] [facility] [address] [id number] [place] [address]- 7171 Jul, [facility] [place] [facility] [address] [id number] [place] [address]- 7367 Jul, [facility] [place] [facility] [address] [id number] [place] [address] Jul, [facility] [place] [facility] [address] [id number] [place] [address] Jul, [facility] [place] [facility] [address] [id number] [place] [address] June, [facility] [place] [facility] [address] [id number] [place] [address] June, [facility] [place] [facility] [address] [id number] [place] [address] June, [facility] [place] [facility] [address] [id number] [place] [address] June, [facility] [place] [facility] [address] [id number] [place] [address] June, [facility] [place] [facility] [address] [id number] [place] [address] June, [facility] [place] [facility] [address] [id number] [place] [address] June, [facility] [place] [facility] [address] [id number] [place] [address] May, [facility] [place] [facility] [address] [id number] [place] [address] May, [facility] [place] [facility] [address] [id number] [place] [address] May, [facility] [place] [facility] [address] [id number] [place] [address] May, [facility] [place] [facility] [address] [id number] [place] [address] May, [facility] [place] [facility] [address] [id number] [place] [address] May, [facility] [place] [facility] [address] [id number] [place] [address] Apr, [facility] [place] [facility] [address] [id number] [place] [address] Apr, [facility] [place] [facility] [address] [id number] [place] [address] Apr, [facility] [place] [facility] [address] [id number] [place] [address] Apr, [facility] [place] [facility] [address] [id number] [place] [address] 14 Apr, 2013 [facility] [place] [facility] [address] [id number] [place] [address] 14 Apr, 2013 [facility] [place] [facility] [address] [id number] [place] [address] Apr, [facility] [place] [facility] [address] [id number] [place] [address] Apr, [facility] [place] [facility] [address] [id number] [place] [address] Apr, [facility] [place] [facility] [address] [id number] [place] [address] Apr, [facility] [place] [facility] [address] [id number] [place] [address] Apr, [facility] [place] [facility] [address] [id number] [place] [address] Apr, [facility] [place] [facility] [address] [id number] [place] [address] Apr, [facility] [place] [facility] [address] [id number] [place] [address] Apr, [facility] [place] [facility] [address] [id number] [place] [address] Mar, [facility] [place] [facility] [address] [id number] [place] [address] Mar, [facility] [place] [facility] [address] [id number] [place] [address] Mar, [facility] [place] [facility] [address] [id number] [place] [address] Feb, [facility] [place] [facility] [address] [id number] [place] [address] Feb, [facility] [place] [facility] [address] [id number] [place] [address] Feb, [facility] [place] [facility] [address] [id number] [place] [address] Feb, [facility] [address] [id number] [place] [address] Feb, [facility] [place] [facility] [address] [id number] [place] [address] Feb, [facility] [address] [id number] [place] [address] Feb, [facility] [place] [facility] [address] [id number] [place] [address] Feb, [facility] [place] [facility] [address] [id number] [place] [address] Feb, [facility] [place] [facility] [address] [id number] [place] [address] Feb, [facility] [address] [id number] [place] [address] Jan, [facility] [address] [id number] [place] [address] Jan, [facility] [place] [facility] [address] [id number] [place] [address] Jan, [facility] [place] [facility] [address] [id number] [place] [address] Jan, [facility] [place] [facility] [address] [id number] [place] [address] Jan, [facility] [place] [facility] [address] [id number] [place] [address] Jan, [facility] [facility] [address] [id number] [place] [address] Jan, [facility] [address] [id number] [place] [address] Jan, [facility] [address] [id number] [place] [address] 0[address] Jan, [facility] [address] [id number] [place] [address] Jan, [facility] [place] [address] [id number] [place] [address] 0929 Jan, [facility] [address] [id number] [place] [address]- 1204 Jan, [facility] [place] [address] [id number] [place] [address]- 6313 16 Jan, 2013 [facility] [address] [id number] [place] [address] Jan, [facility] [place] [address] [id number] [place] [address] 3115 Jan, [facility] [address] [facility] [id number] [place] [address] 1197 Jan, [facility] [address] [id number] [place] [address] 6607 Jan, [facility] [address] [id number] [place] [address] 9801 Jan, [facility] [place] [address] [id number] [place] [address]- 8[address] Jan, [facility] [address] [id number], [place] [address] 7[address] Jan, [facility] [address] [id number] [address] 160[address] Jan, [facility] [address] [id number] [place] [address] 5509 Dec, [facility] [address] [id number] [place] [address]- 0154 Dec, [facility] [address] [facility] [id number] [place] [address]- 4268 Dec, [facility] [place] [address] [id number] [place] [address]- 8989 Dec, [facility] [address] [id number] [place] [address]- 6254 Dec, [facility] [address] [id number] [place] [address]- 1556 Dec, [facility] [address] [id number] [place] [address]- 7249 Dec, [facility] [address] [id number] [place] [address]- 9272 Dec, [facility] [address] [id number] [place] [address]- 3380 Dec, [facility] [address] [id number] [place] [address]- 9268 Dec, [facility] [address] [id number] [place] [address]- 4273 Nov, [facility] [address] [id number] [place] [address]- 1409 Nov, [facility] [facility] [address] [id number] [place] [address]- 0544 Nov, [facility] [address] [id number] [place] [address]- 8810 Nov, [facility] [address] [id number] [place] [address]- 2289 Nov, [facility] [address] [id number], [place] [address] 2104 Nov, [facility] [address] [id number] [place] [address]- 6041 Nov, [facility] [address] [id number] [place] [address]- 3167 Nov, [facility] [address] [id number][place] [address] 10 Nov, 2012 [facility] [address] [id number] [place] [address] 8309 Nov, [facility] [address] [id number] [place] [address]- 2952 Oct, [facility] [place] [address] [id number] [place] [address]- 0787 Oct, [facility] [address] [id number] [place] [address]- 3467 Oct, [facility] [address] [id number] [place] [address]- 7275 Oct, [facility] [address] [id number] [place] [address]- 6903 Oct, [facility] [address] [id number] [place] [address]- 9404 Sep, [facility] [address] [id number] [place] [address]- 7506 Sep, [facility] [address] [id number] [place] [address]- 1705 Aug, [facility] [address] [id number] [place] [address]- 4710 Aug, [facility] [address] [id number] [place] [address]- 9894 Aug, [facility] [address] [id number] [place] [address]- 7955 Aug, [facility] [address] [id number] [place] [address]- 9671 Aug, [facility] [address] [id number] [place] [address]- 0583 Aug, [facility] [address] [id number] [place] [address]- 3926 Aug, [facility] [address] [id number] [place] [address]- 3896 Jul, [facility] [address] [id number] [place] [address]- 0738 Jul, [facility] [address] [id number] [place] [address]- 5055 June, [facility] [address] [id number] [place] [address]- 3865 June, [facility] [address] [id number] [place] [address]- 6707 June, [facility] [address] [id number] [place] [address]- 6465 June, [facility] [address] [id number] [place] [address]- 9552 June, [facility] [address] [id number] [place] [address] 3849 June, [facility] [address] [id number] [place] [address]- 3977 June, [facility] [address] [id number] [place] [address]- 0821 June, [facility] [address] [id number] [place] [address] June, [facility] [address] [id number] [place] [address]- 0077 June, [facility] [address] [id number] [place] [address]- 7734 June, [facility] [address] [id number] [place] [address]- 6181 May, [facility] [address] [id number] [place] [address]- 5366 May, [facility] [address] [id number] [place] [address]- 6648 May, [facility] [address] [id number] [place] [address]- 4770 05 May, 2012 [facility] [address] [id number] [place] [address]- 4876 Apr, [facility] [address] [id number] [place] [address]- 6036 Apr, [facility] [address] [id number] [place] [address]- 5996 Apr, [facility] [address] [id number] [place] [address]- 1215 Mar, [facility] [address] [id number] [place] [address]- 0886 Mar, [facility] [address] [id number] [place] [address]- 9131 Feb, [facility] [address] [id number] [place] [address]- 5102 Feb, [facility] [address] [id number] [place] [address]- 2241 Feb, [facility] [address] [id number] [place] [address]- 0243 Feb, [facility] [address] [id number] [place] [address]- 8777 16 Feb, 2012 [facility] [address] [id number] [place] [address]- 3175 14 Feb, 2012 [facility] [address] [id number] [place] [address] 2544 Feb, [facility] [address] [id number] [place] [address]- 5210 Jan, [facility] [address] [id number] [place] [address]- 9476 Jan, [facility] [address] [id number] [place] [address]- 5212 Jan, [facility] [address] [id number] [place] [address]- 7457 Jan, [facility] [address] [id number] [place] [address]- 2886 Jan, [facility] [address] [id number] [place] Jan, [facility] [address] [id number] [place] [address]- 0095 Jan, [facility] [address] [id number] [place] [address]- 9671 Jan, [facility] [address] [id number] [place] [address]- 5512 Jan, [facility] [address] [id number] [place] [address]- 8650 Jan, [facility] [address] [id number] [place] [address]- 5292 Jan, [facility] [address] [id number] [place] [address]- 0030 Dec, [facility] [address] [id number] [place] [address]- 6428 Dec, [facility] [address] [id number] [place] [address]- 2031 Dec, [facility] [address] [id number], [place] [address]- 7281 Dec, [facility] [address] [id number] [place] [address]- 0076 Nov, [facility] [address] [id number] [place] [address]- 5412 Nov, [facility] [address] [id number] [place] [address]- 7610 Nov, [facility] [address] [id number] [place] [address]- 6081 27 Oct, 2011 [facility] [address] [id number] [place] [address]- 2406 24 Sep, 2011 [facility] [address] [id number] [place] [address]- 5646 21 Oct, 2011 [facility] [address] [id number] [place] [address]- 5706 10 Oct, 2011 [facility] [address] [id number] [place] [address]- 5346 07 Oct, 2011 [facility] [address] [id number] [place] [address]- 0656 04 Oct, 2011 [facility] [address] [id number] [place] [address]- 6986 04 Oct, 2011 [facility] [address] [id number] [place] [address]- 7388 29 Sep, 2011 [facility] [address] [id number] [place] [address]- 4626 27 Sep, 2011 [facility] [address] [id number] [place] [address]- 7921 23 Sep, 2011 [facility] [address] [id number] [place] [address]- 8785 13 Sep, 2011 [facility] [address] [id number] [place] [address]- 7449 Sep, [facility] [address] [id number] [place] [address]- 5444 30 Aug, 2011 [facility] [address] [id number] [place] [address]- 9553 26 Aug, 2011 [facility] [address] [id number] [place] [address]686 17 Aug, 2011 [facility] [address] [id number] [place] [address]- 0207 16 Aug, 2011 [facility] [address] [id number] [place] [address]- 0016 Aug, [facility] [address] [id number] [place] [address]- 4856 Aug, [facility] [address] [id number] [place] [address] 2546 Aug, [facility] [address] [id number] [place] [address]- 5307 Jul, [facility] [address] [id number] [place] [address]- 1907 Jul, [facility] [address] [id number] [place] [address]- 6706 Jul, [facility] [address] [id number] [place] [address]- 4438 Jul, [facility] [address] [id number] [place] [address]- 0036 Jul, [facility] [address] [id number] [place] [address]- 1442 Jul, [facility] [address] [id number] [place] [address]- 2745 Jul, [facility] [address] [id number] [place] [address]- 0425 Jul, [facility] [address] [id number] [place] [address]- 9605 Jul, [facility] [address] [id number] [place] [address]- 7917 June, [facility] [address] [id number] [place] [address]- 0585 June, [facility] [address] [id number] [place] [address] June, [facility] [address] [id number] [place] [address]- 2851 June, [facility] [address] [id number] [place] [address]- 7092 June, [facility] [address] [id number] [place] [address]- 1412 June, [facility] [address] [id number] [place] [address]- 7702 June, [facility] [address] [id number] [place] [address]- 2849 June, [facility] [address] [id number] [place] [address]- 2811 May, [facility] [address] [id number] [place] [address]- 2430 May, [facility] [address] [id number] [place] [address]- 4560 May, [facility] [place] [facility] [address] [id number] [place] [address]- 2698 May, [facility] [place] [address] [id number] [place] [address]- 8454 May, [facility] [address] [id number] [place] [address]- 5722 16 May, 2011 [facility] [facility] [address] [id number] [place] [address]- 4932 May, [facility] [address] [id number], [place] [address]- 1457 27 Apr, 2011 [facility] [facility] [address] [id number] [place] [address]- 2468 Apr, [facility] [place] [facility] [address] [id number] [place] [address]- 2829 Apr, [facility] [place] [facility] [address] [id number] [place] [address]- 7024 Apr, [facility] [place] [facility] [address] [id number] [place] [address]- 2276 Apr, [facility] [place] [facility] [address] [id number] [place] [address]- 0436 Apr, [facility] [place] [facility] [address] [id number] [place] [address] 2546 Apr, [facility] [place] [facility] [address] [id number] [place] [address]- 5316 Mar, [facility] [place] [facility] [address] [id number] [place] [address] 2546 Mar, [facility] [place] [facility] [address] [id number] [place] [address]- 8806 14 Mar, 2011 [facility] [place] [facility] [address] [id number] [place] [address] 2546 13 Mar, 2011 [facility] [place] [facility] [address] [id number] [place] [address] 2546 Mar, [facility] [place] [facility] [address] [id number] [place] [address]- 9244 Mar, [facility] [place] [facility] [address] [id number] [place] [address]- 7657 Mar, [facility] [facility] [address] [id number] [place] [address]- 6873 Feb, [facility] [place] [facility] [address] [id number] [place] [address] 2546 Feb, [facility] [place] [facility] [address] [id number] [place] [address] 2547 Feb, [facility] [place] [facility] [address] [id number] [place] [address] 2546 Feb, [facility] [place] [facility] [address] [id number] [place] [address] 2546 Feb, [facility] [place] [facility] [address] [id number] [place] [address]- 0064 Feb, [facility] [address] [id number] [place] [address]- 9432 Feb, [facility] [place] [facility] [address] [id number] [place] [address]- 8809 Feb, [facility] [address] [id number] [place] [address]- 6800 Feb, [facility] [address] [id number] [place] [address]- 8269 Feb, [facility] [address] [id number] [place] [address]- 1825 Jan, [facility] [address] [id number] [place] [address]- 2295 Jan, [facility] [address] [id number] [place] [address]- 8066 Jan, [facility] [place] [facility] [address] [id number] [place] [address]- 2619 Jan, [facility] [place] [facility] [address] [id number] [place] [address]- 0744 Jan, [facility] [place] [facility] [address] [id number] [place] [address]- 7150 Jan, [facility] [place] [facility] [address] [id number] [place] [address]- 9723 Jan, [facility] [place] [facility] [address] [id number], [place] [address]- 4322 Jan, [facility] [place] [facility] [address] [id number] [place] [address]- 7232 Jan, [facility] [place] [facility] [address] [id number] [place] [address]- 7926 Jan, [facility] [place] [facility] [address] [id number] [place] [address]- 5352 Jan, [facility] [place] [facility] [address] [id number] [place] [address]- 9582 17 Dec, 2010 [facility] [place] [facility] [address] [id number] [place] [address]- 7730 17 Dec, 2010 [facility] [place] [facility] [address] [id number] [place] [address]- 5846 17 Dec, 2010 [facility] [place] [facility] [address] [id number] [place] [address]- 3811 16 Dec, 2010 [facility] [place] [facility] [address] [id number] [place] [address]- 2954 14 Dec, 2010 [facility] [place] [facility] [address] [id number] [place] [address]- 6462 09 Dec, 2010 [facility] [place] [facility] [address] [id number] [place] [address]- 7673 08 Dec, 2010 [facility] [place] [facility] [address] [id number] [place] [address]- 7064 07 Dec, 2010 [facility] [place] [facility] [address] [id number] [place] [address]- 3714 02 Dec, 2010 [facility] [place] [facility] [address] [id number] [place] [address]- 5680 31 Nov, 2010 [facility] [place] [facility] [address] [facility] [id number] [place] [address]- 6015 31 Nov, 2010 [facility] [place] [facility] [address] [id number] [place] [address]- 0104 27 Nov, 2010 [facility] [place] [facility] [address] [id number] [place] [address]- 0930 24 Nov, 2010 [facility] [place] [facility] [address] [id number] [place] [address]- 1333 24 Nov, 2010 [facility] [place] [facility] [address] [id number] [place] [address]- 4828 13 Nov, 2010 [facility] [place] [facility] [address] [id number] [place] [address]- 1960 Aug, [facility] [address] [facility] [id number] [address]- 2394 Feb, [facility] [id number] 1805 Jan, [facility] [address] [facility] [id number], [place] [address]- 3754 Jan, [facility] [id number] [place] [address]- 5626 Jan, [facility] [address] [facility] [id number] [address] Jan, [facility] [id number] [place] [id number] Jan, [facility] [id number] [address] Dec, [facility] [id number] [place] [address] Dec, [facility] [id number] [address] Dec, [facility] [id number] [address] Dec, [facility] [id number] [address] Nov, [facility] [id number] [address] Nov, [facility] [id number] [address] Nov, IMMUNIZATIONS No Known Immunizations SOCIAL HISTORY Never Assessed REASON FOR VISIT Controlled Med Refill 01/08 PLAN OF CARE VITAL SIGNS MEDICATIONS Medication Instructions Dosage Frequency Start Date End Date Duration Status Fentanyl 50 MCG/HR Transdermal 48 hrs 1 patch to skin Dec, 30 days Active RESULTS No Results PROCEDURES No Known procedures INSTRUCTIONS MEDICATIONS ADMINISTERED No Known Medications MEDICAL (GENERAL) HISTORY Type Description Date Medical History Hypertension Medical History Reumatologic disorder Lupus Medical History Neurologic disorder tremors Medical History Headache syndromes Medical History Chronic pain neck, head, left hip/back/leg pain Medical History Psychiatric disorders long hx of mental illness Medical History hepatitis C Surgical History right hip surgery--Dr. 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
--- OUTSIDE RECORDS SUMMARY | 2018-01-13 20:25 | XMS REPORT ---
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 Active 410060651 Problem Hypertension I10 Active 17215103 Problem Arthritis M19.90 Active 1221022 Problem 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 Active 41052697 Problem Anxiety F41.9 Active 44149542 Problem Unspecified episodic mood disorder F39 Active 60699414 Problem Left hip pain M25.552 Active 90537256 ALLERGIES Substance Reaction Event Type Date Status Propranolol HCl chest pain, headache Drug Allergy Dec, Active Bactrim unknown Drug Allergy Dec, Active Penicillins unknown Non Drug Allergy Dec, Active ENCOUNTERS Encounter Location Date Diagnosis [facility] [address] [facility] [id number] [address] Jan, [facility] [address] [facility] [id number], [place] [address] Dec, Arthritis M19.90 [facility] [id number] [place] [address] 81062- 3911 Dec, Unspecified episodic mood disorder F39 [facility] [id number] [place] [address] 56522- 0084 Dec, [facility] [id number] [place] [address] 13771- 1965 Dec, [facility] [id number] [place] [address] 16252- 0760 Dec, [facility] [id number] [place] [address] 01237- 7355 Dec, Difficulty urinating R39.198 [facility] [id number] [place] [address] 15809- 7589 08 Dec, 2017 Left hip pain M25.552 ; Dysuria R30.0 ; Anxiety F41.9 and Acute cystitis without hematuria N30.00 [facility] [id number] [place] [address] 65208- 1579 Dec, Unspecified episodic mood disorder F39 [facility] [id number] [place] [address] 88392- 8935 Nov, Arthritis M19.90 [facility] [id number] [place] [address] 43224- 5266 Nov, [facility] [id number] [place] [address] 69890- 4298 Nov, Chronic hepatitis C without hepatic coma B18.2 and Screening for malignant neoplasm of breast Z12.31 [facility] [id number] [place] [address] 35357- 7576 Nov, [facility] [id number] [place] [address] 44508- 1628 Nov, Chronic hepatitis C without hepatic coma B18.2 [facility] [id number] [place] [address] 42849- 7142 Nov, [facility] [id number] [place] [address] 42205- 3460 Nov, Arthritis M19.90 and Unspecified episodic mood disorder F39 [facility] [id number] [place] [address] 12778- 9604 Oct, [facility] [address] 32936- 2198 Oct, Chronic hepatitis C without hepatic coma B18.2 and Encounter for immunization Z23 [facility] [address] 34004- 1878 Oct, [facility] [id number] [place] [address] 41037- 9607 Oct, Arthritis M19.90 and Unspecified episodic mood disorder F39 [facility] [id number] [place] [address] 84634- 0017 Sep, Chronic hepatitis C without hepatic coma B18.2 [facility] [id number] [place] [address] 18407- 0240 Sep, Gastroesophageal reflux disease, esophagitis presence not specified K21.9 and Other chronic pain G89.29 [facility] [id number] [place] [address] 67681- 2567 Sep, [facility] [id number] [place] [address] 54679- 5966 Sep, [facility] [id number] [place] [address] 54428- 0450 Sep, Chronic hepatitis C without hepatic coma B18.2 [facility] [id number] [place] [address] 51337- 4857 Sep, 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 [facility] [id number] [place] [address] 48877- 5087 Sep, Arthritis M19.90 [facility] [address] [id number], [place] [address] 9315 Sep, [facility] [address], [place] [address] 9606 Sep, Unspecified episodic mood disorder F39 [facility] [address], [place] [address] 5196 Aug, [facility] [id number] [place] [address] [id number] Aug, [facility] [address] [id number], [place] [address] 5166 Aug, Arthritis M19.90 [facility] [address], [place] [address]- 0719 Aug, [facility] [address], [place] [address]- 7690 Aug, Obesity (BMI 30.0-34.9) E66.9 ; Unspecified episodic mood disorder F39 and Hypertension I10 [facility] [address], [place] [address]- 9533 Aug, Unspecified episodic mood disorder F39 [facility] [address], [place] [address] 9043 Aug, [facility] [address], [place] [address]- 4966 Jul, Unspecified episodic mood disorder F39 [facility] [address] [id number], [place] [address]- 0488 Jul, [facility] [address], [place] [address]- 9641 Jul, Arthritis M19.90 [facility] [address] [id number], [place] [address] 5739 Jul, Left hip pain M25.552 ; Hypertension I10 ; Other obesity due to excess calories E66.09 and Body mass index (BMI) of 34.0-34.9 in adult Z68.34 [facility] [id number] [place] [address] 79460- 8140 Jul, Unspecified episodic mood disorder F39 [facility] [id number] [place] [address] 05012- 3900 June, Gastroesophageal reflux disease, esophagitis presence not specified K21.9 [facility] [id number] [place] [address] 41798- 9596 June, [facility] [id number] [place] [address] 11825- 6632 June, [facility] [id number] [place] [address] 38458- 3020 June, Arthritis M19.90 [facility] [id number] [place] [address] 44314- 2219 June, [facility] [id number] [place] [address] 29179- 2382 June, [facility] [id number] [place] [address] 65054- 6057 June, Unspecified episodic mood disorder F39 [facility] [id number] [place] [address] 86573- 5342 May, Unspecified episodic mood disorder F39 [facility] [id number] [place] [address] 33170- 4611 May, [facility] [id number] [place] [address] 17933- 6271 May, Arthritis M19.90 [facility] [id number] [place] [address] 63262 -4478 May, Dysuria R30.0 ; Abscess L02.91 and Acute cystitis without hematuria N30.00 [facility] [id number] [place] [address] 51636- 6626 May, 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 ; Unspecified episodic mood disorder F39 ; Combined drug dependence excluding opioids, 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 ; Anxiety F41.9 and Other psychoactive substance dependence, 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 [facility] [address], [place] [address]- 4914 May, [facility] [id number] [place] [address] 95588- 2681 May, 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 ; Unspecified episodic mood disorder F39 ; Combined drug dependence excluding opioids, 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 ; Other psychoactive substance dependence, 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 and Anxiety F41.9 [facility] [id number] [place] [address] 80194- 6420 May, Other chronic pain G89.29 ; Left hip pain M25.552 ; Hypertension I10 ; 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, 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 and Unspecified episodic mood disorder F39 [facility] [id number] [place] [address] 83252- 2512 Apr, [facility] [id number] [place] [address] 70331 -9638 Apr, Neck pain M54.2 ; Left hip pain M25.552 and Fall, initial encounter W19.XXXA [facility] [id number] [place] [address] 26007- 4296 Apr, Unspecified episodic mood disorder F39 ; Combined drug dependence excluding opioids, 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 ; Anxiety F41.9 ; Other psychoactive substance dependence, 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 and 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 [facility] [id number] [place] [address] 15843- 5278 Apr, [facility] [id number] [place] [address] 09119- 5921 Apr, Arthritis M19.90 and Unspecified episodic mood disorder F39 [facility] [address] [place] [address]- 2388 Apr, Unspecified episodic mood disorder F39 [facility] [id number] [place] [address] 49829- 2004 Apr, [facility] [id number] [place] [address] 43812- 5702 Apr, [facility] [id number] [place] [address] 75646- 6738 Apr, Unspecified episodic mood disorder F39 ; Combined drug dependence excluding opioids, 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 ; Anxiety F41.9 ; Other psychoactive substance dependence, 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 and 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 [facility] [id number] [place] [address] 45649- 7178 Mar, Unspecified episodic mood disorder F39 [facility] [id number] [place] [address] 19418- 9024 Mar, Gastroesophageal reflux disease, esophagitis presence not specified K21.9 [facility] [id number] [place] [address] 74134- 4196 Mar, Arthritis M19.90 and Unspecified episodic mood disorder F39 [facility] [id number] [place] [address] 21297- 8370 Feb, [facility] [id number] [place] [address] 23647- 8321 Feb, [facility] [id number] [place] [address] 82599- 8495 Feb, [facility] [id number] [place] [address] 62316- 7123 Feb, Arthritis M19.90 [facility] [id number] [place] [address] 88402- 3148 Feb, Non-pressure chronic ulcer of right calf, 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 ; Unspecified episodic mood disorder F39 and Left hip pain M25.552 [facility] [id number] [place] [address] 59410- 0669 Feb, [facility] [id number] [place] [address] 46043- 4239 Feb, [facility] [id number] [place] [address] 76992- 7979 Jan, Arthritis M19.90 [facility] [address] 62110- 2458 Jan, Left hip pain M25.552 and Non-pressure chronic ulcer of right calf, 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 [place] [address] 96000- 1246 Jan, Chronic hepatitis C without hepatic coma B18.2 [place] [address] 53975- 6684 Jan, Encounter for immunization Z23 ; Venous insufficiency ( chronic) (peripheral) I87.2 ; Non-pressure chronic ulcer of unspecified calf limited to breakdown of skin L97.201 and Gastroesophageal reflux disease, esophagitis presence not specified K21.9 [place] [id number] [place] [address] 09496- 8515 Jan, [place] [id number] [place] [address] 12650- 0254 Jan, Chronic hepatitis C without hepatic coma B18.2 and Encounter for immunization Z23 [facility] [id number] [place] [address] 79025- 9940 Jan, Arthritis M19.90 [facility] [address] 40879- 3721 Jan, [facility] [id number] [place] [address] 30629- 6114 Dec, [facility] [address] 58681- 9639 Dec, Unspecified episodic mood disorder F39 [facility] [id number] [place] [address] 49702- 6242 Dec, Arthritis M19.90 [facility] [id number] [place] [address] 13504- 1972 Dec, Arthritis M19.90 [facility] [id number] [place] [address] 55767- 0053 Nov, [facility] [id number] [place] [address] 81203- 4330 Nov, [facility] [id number] [place] [address] 41582- 6376 Nov, Other psychoactive substance dependence, 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 ; 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, 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 and Chronic hepatitis C without hepatic coma B18.2 [facility] [id number] [place] [address] 39377- 8384 Nov, Arthritis M19.90 [facility] [id number] [place] [address] 06366 -4330 Oct, Partial thickness burn of abdomen, initial encounter T21.22XA [facility] [id number] [place] [address] 06922- 7884 Oct, [facility] [id number] [place] [address] 52157- 5382 Sep, Arthritis M19.90 [facility] [address], [place] [address]- 5256 Sep, [facility] [id number] [place] [address] 61675- 6770 Sep, [facility] [id number] [place] [address] 01045- 0134 Sep, Unspecified episodic mood disorder F39 ; Chronic hepatitis C without hepatic coma B18.2 and Left hip pain M25.552 [facility] [id number] [place] [address] 49630- 8064 Sep, Arthritis M19.90 and Left hip pain M25.552 [facility] [id number] [place] [address] 54917- 5505 Aug, [facility] [id number] [place] [address] 63359- 0533 Aug, [facility] [id number] [place] [address] 34427- 2076 Aug, Chronic hepatitis C without hepatic coma B18.2 [facility] [id number] [place] [address] 86037- 7781 Aug, [facility] [id number] [place] [address] 03341- 4277 Aug, Chronic hepatitis C without hepatic coma B18.2 [facility] [id number] [place] [address] 17245- 2846 Aug, 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, 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 [facility] [id number] [place] [address] 62320- 2380 Aug, [facility] [id number] [place] [address] 10515- 5990 Aug, Chronic hepatitis C without hepatic coma B18.2 and Hypertension I10 [facility] [id number] [place] [address] 20479- 9322 Jul, [facility] [id number] [place] [address] 92903- 7898 June, [facility] [id number] [place] [address] 16338- 8631 Apr, Fibromyalgia M79.7 ; Left hip pain M25.552 and Decubitus ulcer of sacral region, stage 1 L89.151 [facility] [id number] [place] [address] 34622- 1687 Apr, [facility] [address], [place] [address]- 5779 Apr, [facility] [id number] [place] [address] 81951- 0618 Feb, [facility] [id number] [place] [address] 95676- 0326 Dec, Anxiety F41.9 ; Combined drug dependence excluding opioids, 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 and Unspecified episodic mood disorder F39 [facility] [id number] [place] [address] 27310- 7563 Dec, [facility] [id number] [place] [address] 37351- 1450 Nov, [facility] [id number] [place] [address] 21290- 0441 Nov, [facility] [id number] [place] [address] 36976- 4968 Nov, 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 and Anxiety F41.9 [facility] [id number] [place] [address] 80243- 4041 Oct, [facility] [id number] [place] [address] 36059 -1666 14 Oct, 2015 Open wound of left thigh, initial encounter S71.102A [facility] [id number] [place] [address] 24012- 8300 Oct, [facility] [id number] [place] [address] 68494- 5339 Sep, Unspecified episodic mood disorder F39 ; Other disorder of impulse control 312.39 ; Combined drug dependence excluding opioids, 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 and Anxiety F41.9 [facility] [address], [place] [address]- 9106 Sep, Other disorder of impulse control 312.39 ; Combined drug dependence excluding opioids, 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 ; Anxiety F41.9 and Unspecified episodic mood disorder F39 [facility] [address], [place] [address]- 7218 Sep, Other chronic pain G89.29 [facility] [address], [place] [address]- 3586 Sep, [facility] [id number] [place] [address] 30686- 8260 Sep, [facility] [id number] [place] [address] 28566- 3669 Aug, [facility] [id number] [place] [address] 98037- 6269 Aug, [facility] [id number] [place] [address] 84619- 4717 Aug, [facility] [id number] [place] [address] 98979- 6680 Jul, [facility] [id number] [place] [address] 48340- 8257 Jul, [facility] [id number] [place] [address] 02868- 4086 Jul, [facility] [id number] [place] [address] 45103- 6092 Jul, Arthritis M19.90 ; Chronic hepatitis C without hepatic coma B18.2 and Left hip pain M25.552 [facility] [address], [place] [address]- 8048 13 Jul, 2015 Left knee pain M25.562 [facility] [id number] [place] [address] 99407- 4425 Jul, Combined drug dependence excluding opioids, 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 ; Anxiety F41.9 ; Other disorder of impulse control 312.39 and Unspecified episodic mood disorder F39 [facility] [id number] [place] [address] 98483- 9098 Jul, Left knee pain M25.562 [facility] [address] [address]- 8171 08 Jul, 2015 Left knee pain M25.562 and Left hip pain M25.552 [facility] [address], [place] [address]- 7079 Jul, [facility] [id number] [place] [address] 37315- 8927 June, [facility] [id number] [place] [address] 37325- 7314 June, Combinations of drug dependence excluding opioid type drug, 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 ; Other disorder of impulse control 312.39 ; Unspecified episodic mood disorder F39 and Anxiety F41.9 [facility] [address], [place] [address]- 2851 June, Other fatigue R53.83 ; Headache R51 and Left knee pain M25.562 [facility] [address], [place] [address]- 4630 June, Unspecified episodic mood disorder F39 ; Combinations of drug dependence excluding opioid type drug, 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 ; Other disorder of impulse control 312.39 and Anxiety F41.9 [facility] [address], [place] [address]- 1741 June, Anxiety F41.9 [facility] [address], [place] [address]- 2767 June, Pain in left knee M25.562 [facility] [address], [place] [address]- 7907 June, Anxiety F41.9 and Combinations of drug dependence excluding opioid type drug, 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 [facility] [address], [place] [address]- 7015 June, Unspecified episodic mood disorder 296.90 ; Combinations of drug dependence excluding opioid type drug, 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 and Other disorder of impulse control 312.39 [facility] [address], [place] [address]- 7017 June, Anxiety F41.9 and Unspecified episodic mood disorder 296.90 [facility] [id number], [place] [address] May, Arthritis M19.90 [facility] [id number] [place] [address] May, Arthritis M19.90 [facility] [id number] [place] [address] May, Anxiety F41.9 ; Combinations of drug dependence excluding opioid type drug, 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 and Other disorder of impulse control 312.39 [facility] [id number] [place] [address] May, Left knee pain M25.562 [facility] [id number] [place] [address] May, Arthritis M19.90 [facility] [id number] [place] [address] May, [facility] [id number] [place] [address] May, Anxiety F41.9 ; Unspecified episodic mood disorder 296.90 ; Combinations of drug dependence excluding opioid type drug, 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 and Other disorder of impulse control 312.39 [facility] [id number], [place] [address] May, Left knee pain M25.562 [facility] [id number] [place] [address] May, Left knee pain M25.562 ; Combinations of drug dependence excluding opioid type drug, 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 ; Other disorder of impulse control 312.39 ; Fibromyalgia M79.7 ; Hypertension I10 ; Unspecified episodic mood disorder 296.90 and Left hip pain M25.552 [place] [id number] [place] [address] 43637- 3711 May, Unspecified episodic mood disorder 296.90 ; Other disorder of impulse control 312.39 ; Combinations of drug dependence excluding opioid type drug, 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 and Anxiety F41.9 [place] [id number] [place] [address] 26960- 2709 May, Left knee pain M25.562 ; Combinations of drug dependence excluding opioid type drug, 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 ; Other disorder of impulse control 312.39 ; Fibromyalgia M79.7 ; Hypertension I10 ; Unspecified episodic mood disorder 296.90 and Left hip pain M25.552 [place] [id number] [place] [address] 27176- 2478 May, Anxiety F41.9 ; Unspecified episodic mood disorder 296.90 ; Other disorder of impulse control 312.39 and Combinations of drug dependence excluding opioid type drug, 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 [place] [id number] [place] [address] 02469- 0169 Apr, 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9 ; Unspecified episodic mood disorder 296.90 ; Combinations of drug dependence excluding opioid type drug, 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 and Other disorder of impulse control 312.39 [place] [id number] [place] [address] 19493- 0600 17 Apr, 2015 Arthritis M19.90 [facility] [address], [place] [address] 4591 15 Apr, 2015 [facility] [address], [place] [address] 8024 15 Apr, 2015 [facility] [id number] [place] [address] 61559- 1605 14 Apr, 2015 Unspecified episodic mood disorder 296.90 ; Combinations of drug dependence excluding opioid type drug, 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 ; Other disorder of impulse control 312.39 and Anxiety F41.9 [facility] [id number] [place] [address] 72335 -8542 11 Apr, 2015 Left knee pain M25.562 [facility] [id number] [place] [address] 48906- 6090 11 Apr, 2015 [facility] [id number] [place] [address] 24193- 7867 29 Mar, 2015 Unspecified episodic mood disorder 296.90 ; Anxiety F41.9 ; Other disorder of impulse control 312.39 and Combinations of drug dependence excluding opioid type drug, 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 [facility] [address], [place] [address]- 7723 Mar, Hyperpigmentation L81.9 [facility] [id number] [place] [address] 17067- 7928 Mar, Arthritis M19.90 and Anxiety F41.9 [facility] [address], [place] [address]- 5355 Mar, Unspecified episodic mood disorder F39 ; Combined drug dependence excluding opioids, 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 ; 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 and Anxiety F41.9 [facility] [address] [address]- 5357 12 Mar, 2015 Well woman exam Z01.419 ; Other fatigue R53.83 ; Hot flashes N95.1 ; Depression, unspecified depression type F32.9 and Body mass index (BMI) of 23.0-23.9 in adult Z68.23 [place] [id number] [place] [address] 98678- 2029 11 Mar, 2015 Unspecified episodic mood disorder 296.90 ; Other disorder of impulse control 312.39 and Anxiety F41.[address] [address]29- 0948 11 Mar, 2015 Well woman exam Z01.419 [...] of breast Z12.39 and Limited mobility Z74.09 [place] [id number] [place] [address] 90245- 1884 10 Mar, [address] 30530- 2966 Mar, [address] 80315- 6090 08 Mar, [address] 26784- 0430 03 Mar, 2015 Other specified complication of internal orthopedic prosthetic devices, implants and grafts, initial encounter T84.89XA ; Fibromyalgia M79.7 ; Hypertension I10 ; Anemia D64.9 ; Insomnia G47.00 ; Anxiety F41.9 ; Arthritis M19.90 and Migraine G43.909 [place] [id number] [address]- 9741 Mar, [facility] [id number] [place] [address] 18325- 2632 Feb, [facility] [id number] [place] [address] 66234- 2142 Feb, Arthritis M19.90 and Anxiety F41.9 [facility] [id number] [place] [address] 98406- 8539 Feb, [facility] [id number] [place] [address] 80846- 4306 Feb, [facility] [id number] [place] [address] 90889- 6866 Feb, [facility] [id number] [place] [address] 08737- 2500 Feb, [facility] [id number] [place] [address] 87384- 0470 Feb, Anxiety F41.9 [facility] [id number] [place] [address] 07810- 5356 Feb, [facility] [address], [place] [address]- 7817 Feb, [facility] [address], [place] [address]- 9990 Feb, 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 and Fibromyalgia M79.7 [facility] [address], [place] [address]- 6710 Feb, [facility] [id number] [place] [address] 33632- 1762 Jan, [facility] [address], [place] [address]- 9462 Jan, [facility] [id number] [place] [address] 38930- 9600 Jan, [facility] [address], [place] [address]- 6466 Jan, [facility] [id number] [place] [address] 485447- 9419 Jan, [facility] [id number] [place] [address] 459528- 3823 Jan, [facility] [id number] [place] [address] 962696- 9149 Jan, [facility] [id number] [place] [address] 705328- 5501 Jan, [facility] [id number] [place] [address] 26679- 2980 Dec, [facility] [id number] [place] [address] 53516- 5151 Dec, Left knee pain M25.562 [facility] [id number] [place] [address] 26792- 0821 Dec, Left knee pain M25.562 [facility] [id number] [place] [address] 42391- 9871 Dec, Fibromyalgia M79.7 ; Hypertension I10 and Arthritis M19.90 [facility] [address], [place] [address]- 8657 Dec, [facility] [address], [place] [address]- 5494 Dec, [facility] [address], [place] [address]- 1651 Dec, [facility] [id number] [place] [address] 13364- 8969 Dec, [facility] [address] 3673 Nov, [facility] [id number], [place] [address]- 4906 Nov, [facility] [address] [id number], [place] [address]- 3987 Nov, [facility] [place] [facility] [id number], [place] [address]- 1533 Nov, Hypertension I10 [facility] [address] [facility] [id number] [place] [address] 59401- 5908 23 Oct, 2014 [facility] [place] [facility] [address] [facility] [id number] [place] [address] 53332- 7439 17 Oct, 2014 [facility] [address] [facility] [id number] [place] [address] 89794- 4131 Oct, 2014 [facility] [place] [facility] [address] [facility] [id number] [place] [address] 42848- 5644 Oct, 2014 [facility] [id number] [place] [address] 14627- 2876 Oct, 2014 [facility] [address] [facility] [id number], [place] [address]- 8429 Sep, [facility] [id number] [place] [address] 29968- 1340 Sep, [facility] [id number], [place] [address]- 7539 Sep, Hip pain associated with recalled total hip arthroplasty hardware 996.77 [facility] [place] [facility] [address] [facility] [id number], [place] [address]- 6575 Sep, [facility] [place] [facility] [address] [facility] [id number], [place] [address]- 8716 Sep, [facility] [place] [facility] [address] [facility] [id number], [place] [address]- 1786 Sep, [facility] [place] [facility] [address] [facility] [id number], [place] [address]- 4122 Aug, [facility] [place] [facility] [address] [id number], [place] [address]- 9465 Jul, [facility] [place] [facility] [address] [id number] [place] [address]- 5134 June, [facility] [place] [facility] [address] [id number] [place] [address]- 8106 June, [facility] [place] [facility] [address] [id number] [place] [address]- 6540 June, [facility] [place] [facility] [address] [id number] [place] [address]- 7560 June, [facility] [place] [facility] [address] [id number] [place] [address]- 8979 June, [facility] [place] [facility] [address] [id number] [place] [address]- 2881 June, [facility] [place] [facility] [address] [id number] [place] [address]- 6353 May, [facility] [place] [facility] [address] [id number] [place] [address]- 7533 May, [facility] [place] [facility] [address] [id number] [place] [address]- 0735 May, [facility] [place] [facility] [address] [id number] [place] [address]- 0480 Apr, [facility] [place] [facility] [address] [id number] [place] [address]- 9692 Apr, [facility] [place] [facility] [address] [id number] [place] [address]- 4350 Apr, [facility] [place] [facility] [address] [id number] [place] [address]- 6142 Apr, [facility] [place] [facility] [address] [id number] [place] [address]- 9284 Apr, [facility] [place] [facility] [address] [id number] [place] [address]- 3105 Apr, [facility] [place] [facility] [address] [id number] [place] [address]- 6974 Apr, [facility] [place] [facility] [address] [id number] [place] [address]- 8323 Apr, [facility] [place] [facility] [address] [id number] [place] [address]- 4362 Apr, [facility] [place] [facility] [address] [id number] [place] [address]- 7315 Apr, [facility] [place] [facility] [address] [id number] [place] [address]- 7805 Apr, [facility] [place] [facility] [address] [id number] [place] [address]- 8180 Mar, [facility] [place] [facility] [address] [id number] [place] [address]- 0534 Mar, [facility] [place] [facility] [address] [id number] [place] [address]- 2623 Mar, [facility] [place] [facility] [address] [id number] [place] [address]- 9767 Mar, [facility] [place] [facility] [address] [id number] [place] [address]- 3026 Mar, [facility] [place] [facility] [address] [id number] [place] [address]- 5565 Mar, [facility] [place] [facility] [address] [id number] [place] [address]- 6628 Feb, [facility] [place] [facility] [address] [id number] [place] [address]- 2493 Feb, [facility] [place] [facility] [address] [id number] [place] [address]- 8633 Feb, [facility] [place] [facility] [address] [id number] [place] [address]- 6349 Feb, [facility] [place] [facility] [address] [id number], [place] [address]- 2303 Jan, [facility] [place] [facility] [address] [id number] [place] [address]- 1975 Jan, [facility] [place] [facility] [address] [id number] [place] [address]- 9138 Jan, [facility] [place] [facility] [address] [id number] [place] [address]- 4476 Jan, [facility] [place] [facility] [address] [id number] [place] [address]- 9671 Dec, [facility] [place] [facility] [address] [id number] [place] [address]- 9534 Dec, [facility] [place] [facility] [address] [id number] [place] [address]- 0634 Dec, [facility] [place] [facility] [address] [id number] [place] [address]- 1368 Dec, [facility] [place] [facility] [address] [id number] [place] [address]- 9732 Dec, [facility] [place] [facility] [address] [id number] [place] [address]- 9095 Dec, [facility] [place] [facility] [address] [id number] [place] [address]- 1483 Dec, [facility] [place] [facility] [address] [id number], [place] [address]- 6016 Dec, [facility] [place] [facility] [address] [id number], [place] [address]- 4940 Dec, [facility] [place] [facility] [address] [id number] [place] [address]- 2371 Dec, [facility] [place] [facility] [address] [id number], [place] [address]- 0283 Dec, [facility] [place] [facility] [address] [id number] [place] [address]- 1165 Nov, [facility] [place] [facility] [address] [id number] [place] [address]- 2883 28 Nov, 2013 [facility] [place] [facility] [address] [id number] [place] [address]- 4213 28 Nov, 2013 [facility] [place] [facility] [address] [id number] [place] [address]- 0672 17 Nov, 2013 [facility] [place] [facility] [address] [id number] [place] [address]- 7657 17 Nov, 2013 [facility] [place] [facility] [address] [id number] [place] [address]- 7722 15 Nov, 2013 [facility] [place] [facility] [address] [id number] [place] [address]- 5502 15 Nov, 2013 [facility] [place] [facility] [address] [id number] [place] [address]- 0649 15 Nov, 2013 [facility] [place] [facility] [address] [id number] [place] [address]- 4539 15 Nov, 2013 [facility] [place] [facility] [address] [id number] [place] [address]- 3596 14 Nov, 2013 [facility] [place] [facility] [address] [id number] [place] [address]- 3464 14 Nov, 2013 [facility] [place] [facility] [address] [id number] [place] [address]- 0170 14 Nov, 2013 [facility] [place] [facility] [address] [id number] [place] [address]- 9199 14 Nov, 2013 [facility] [place] [facility] [address] [id number] [place] [address]- 3585 13 Nov, 2013 [facility] [place] [facility] [address] [id number] [place] [address]- 6595 13 Nov, 2013 [facility] [place] [facility] [address] [id number] [place] [address]- 8635 11 Nov, 2013 [facility] [place] [facility] [address] [id number] [place] [address]- 2404 11 Nov, 2013 [facility] [place] [facility] [address] [id number] [place] [address]- 4544 07 Nov, 2013 [facility] [place] [facility] [address] [id number] [place] [address]- 0249 Nov, 2013 [facility] [place] [facility] [address] [id number] [place] [address]- 8080 Nov, 2013 [facility] [place] [facility] [address] [id number] [place] [address]- 0165 Nov, [facility] [place] [facility] [address] [id number] [place] [address]- 9738 30 Oct, 2013 [facility] [place] [facility] [address] [id number] [place] [address]- 7286 30 Oct, 2013 [facility] [place] [facility] [address] [id number] [place] [address]- 2002 26 Oct, 2013 [facility] [place] [facility] [address] [id number] [place] [address]- 4514 26 Oct, 2013 [facility] [place] [facility] [address] [id number] [place] [address]- 2079 22 Oct, 2013 [facility] [place] [facility] [address] [id number] [place] [address]- 4717 22 Oct, 2013 [facility] [place] [facility] [address] [id number], [place] [address]- 1337 18 Oct, 2013 [facility] [place] [facility] [address] [id number], [place] [address]- 2521 18 Oct, 2013 [facility] [place] [facility] [address] [id number] [place] [address]- 7732 18 Oct, 2013 [facility] [place] [facility] [address] [id number] [place] [address]- 0693 18 Oct, 2013 [facility] [place] [facility] [address] [id number], [place] [address]- 3825 12 Oct, 2013 [facility] [place] [facility] [address] [id number], [place] [address]- 0327 Oct, [facility] [place] [facility] [address] [id number] [place] [address]- 5080 Oct, [facility] [place] [facility] [address] [id number] [place] [address]- 1117 Oct, [facility] [place] [facility] [address] [id number] [place] [address]- 7253 Sep, [facility] [place] [facility] [address] [id number] [place] [address]- 2699 Sep, [facility] [place] [facility] [address] [id number] [place] [address]- 8030 Sep, [facility] [place] [facility] [address] [id number] [place] [address]- 5054 Sep, [facility] [place] [facility] [address] [id number] [place] [address]- 5519 Sep, [facility] [place] [facility] [address] [id number] [place] [address]- 1141 Sep, [facility] [place] [facility] [address] [id number] [place] [address]- 5391 Sep, [facility] [place] [facility] [address] [id number] [place] [address]- 6799 Sep, [facility] [place] [facility] [address] [id number] [place] [address]- 2190 Sep, [facility] [place] [facility] [address] [id number] [place] [address]- 1364 Sep, [facility] [place] [facility] [address] [id number] [place] [address]- 1245 Sep, [facility] [place] [facility] [address] [id number] [place] [address]- 5721 Sep, [facility] [place] [facility] [address] [id number] [place] [address]- 2951 Sep, [facility] [place] [facility] [address] [id number] [place] [address]- 2408 Sep, [facility] [place] [facility] [address] [id number] [place] [address]- 2483 Sep, [facility] [place] [facility] [address] [id number] [place] [address]- 9626 Sep, [facility] [place] [facility] [address] [id number] [place] [address]- 9107 Sep, [facility] [place] [facility] [address] [id number] [place] [address]- 5584 Sep, [facility] [place] [facility] [address] [id number] [place] [address]- 5465 Aug, [facility] [place] [facility] [address] [id number] [place] [address]- 2013 Aug, [facility] [place] [facility] [address] [id number] [place] [address]- 7566 Aug, [facility] [place] [facility] [address] [id number] [place] [address]- 4601 Aug, [facility] [place] [facility] [address] [id number] [place] [address]- 0252 Aug, [facility] [place] [facility] [address] [id number] [place] [address]- 8349 Aug, [facility] [place] [facility] [address] [id number] [place] [address]- 9145 Jul, [facility] [place] [facility] [address] [id number] [place] [address]- 6106 Jul, [facility] [place] [facility] [address] [id number] [place] [address]- 4355 Jul, [facility] [place] [facility] [address] [id number] [place] [address]- 9187 Jul, [facility] [place] [facility] [address] [id number] [place] [address]- 3834 June, [facility] [place] [facility] [address] [id number] [place] [address]- 6141 June, [facility] [place] [facility] [address] [id number] [place] [address]- 4795 June, [facility] [place] [facility] [address] [id number] [place] [address]- 6993 June, [facility] [place] [facility] [address] [id number] [place] [address] June, [facility] [place] [facility] [address] [id number] [place] [address] June, [facility] [place] [facility] [address] [id number] [place] [address] June, [facility] [place] [facility] [address] [id number] [place] [address] May, [facility] [place] [facility] [address] [id number] [place] [address] May, [facility] [place] [facility] [address] [id number] [place] [address] May, [facility] [place] [facility] [address] [id number] [place] [address] May, [facility] [place] [facility] [address] [id number] [place] [address] May, [facility] [place] [facility] [address] [id number] [place] [address] May, [facility] [place] [facility] [address] [id number] [place] [address] Apr, [facility] [place] [facility] [address] [id number] [place] [address] 31 Apr, 2013 [facility] [place] [facility] [address] [id number] [place] [address] Apr, [facility] [place] [facility] [address] [id number] [place] [address] 28 Apr, 2013 [facility] [place] [facility] [address] [id number] [place] [address] 14 Apr, 2013 [facility] [place] [facility] [address] [id number] [place] [address] 14 Apr, 2013 [facility] [place] [facility] [address] [id number] [place] [address] Apr, [facility] [place] [facility] [address] [id number] [place] [address] Apr, [facility] [place] [facility] [address] [id number] [place] [address] Apr, [facility] [place] [facility] [address] [id number] [place] [address]- [address] Apr, [facility] [place] [facility] [address] [id number] [place] [address]- [address] 04 Apr, 2013 [facility] [place] [facility] [address] [id number] [place] [address]- [address]47 04 Apr, 2013 [facility] [place] [facility] [address] [id number] [place] [address]- [address] Apr, [facility] [place] [facility] [address] [id number] [place] [address]- [address]64 Apr, [facility] [place] [facility] [address] [id number] [place] [address] Mar, [facility] [place] [facility] [address] [id number] [place] [address] Mar, [facility] [place] [facility] [address] [id number] [place] [address] 05 Mar, 2013 [facility] [place] [facility] [address] [id number] [place] [id number] [address] Feb, [facility] [place] [facility] [address] [id number] [place] [address] Feb, [facility] [place] [facility] [address] [id number] [place] [address] Feb, [facility] [address] [id number] [place] [address] Feb, [facility] [place] [facility] [address] [id number] [place] [address] Feb, [facility] [place] [facility] [address] [id number] [place] [address] 35[address] Feb, [facility] [address] [id number] [place] [address] Feb, [facility] [place] [facility] [address] [id number] [place] [address] Feb, [facility] [address] [id number] [place] [address] Feb, [facility] [address] [id number] [place] [address] 16[address] Feb, [facility] [address] [id number] [place] [address] Jan, [facility] [address] [id number] [place] [address]- [address] Jan, [facility] [place] [facility] [address] [id number] [place] [address] Jan, [facility] [place] [facility] [address] [id number], [place] [address] Jan, [facility] [place] [facility] [address] [id number] [place] [address] Jan, [facility] [place] [facility] [address] [id number] [place] [address]- [address] Jan, [facility] [place] [facility] [address] [id number] [place] Jan, [facility] [place] [facility] [address] [id number], [place] [address] Jan, [facility] [address] [id number] [place] [address] Jan, [facility] [place] [facility] [address] [id number] [place] [address]- 1606 Jan, [facility] [address] [id number] [place] [address]- 73[address] Jan, [facility] [place] [facility] [address] [id number] [place] [address] 17 Jan, 2013 [facility] [address] [id number] [place] [address] 16 Jan, 2013 [facility] [address] [id number] [place] [address]- [address] Jan, [facility] [address] [id number] [place] [address]- [address] Jan, [facility] [place] [facility] [address] [id number] [place] [address]- [address] Jan, [facility] [address] [id number] [place] [address]- [address] Jan, [facility] [place] [facility] [address] [id number] [place] [address]- [address] Jan, [facility] [place] [facility] [address] [id number], [place] [address] Jan, [facility] [facility] [address] [id number], [place] [address] Jan, [facility] [place] [facility] [address] [id number] [place] [address] 2856 Jan, [facility] [place] [facility] [address] [id number] [place] [address] 7735 Dec, [facility] [place] [facility] [address] [id number] [place] [address]- 4476 Dec, [facility] [place] [facility] [address] [id number] [place] [address]- 6398 Dec, [facility] [place] [facility] [address] [id number] [place] [address]- 5263 Dec, [facility] [place] [facility] [address] [id number] [place] [address]- 4380 Dec, [facility] [place] [facility] [address] [id number] [place] [address]- 5590 Dec, [facility] [place] [facility] [address] [id number] [place] [address]- 5356 Dec, [facility] [place] [facility] [address] [id number] [place] [address]- 9940 Dec, [facility] [place] [facility] [address] [id number] [place] [address]- 0831 Dec, [facility] [place] [facility] [address] [id number] [place] [address]- 2126 Dec, [facility] [place] [facility] [address] [id number] [place] [address]- 6495 Nov, [facility] [place] [facility] [address] [id number] [place] [address]- 6366 Nov, [facility] [place] [facility] [address] [id number] [place] [address]- 5885 Nov, [facility] [place] [facility] [address] [id number] [place] [address]- 5662 Nov, [facility] [place] [facility] [address] [id number] [place] [address]- 2807 Nov, [facility] [place] [facility] [address] [id number] [place] [address]- 0852 Nov, [facility] [place] [facility] [address] [id number] [place] [address]- 5597 Nov, [facility] [place] [facility] [address] [id number] [place] [address]- 4791 Nov, [facility] [address] [id number] [place] [address]- 0506 Nov, [facility] [place] [facility] [address] [id number] [place] [address]- 3163 Nov, [facility] [place] [facility] [address] [id number] [place] [address]- 7671 Oct, [facility] [place] [facility] [address] [id number] [place] [address]- 7680 Oct, [facility] [place] [address] [id number] [place] [address]- 5896 Oct, [facility] [place] [address] [id number] [place] [address]- 0532 Oct, [facility] [address] [id number] [place] [address]- 2862 Oct, [facility] [address] [id number] [place] [address]- 9768 Sep, [facility] [place] [address] [id number] [place] [address]- 7842 Sep, [facility] [address] [id number] [place] [address]- 1301 Aug, [facility] [address] [id number] [place] [address]- 8966 Aug, [facility] [address] [id number], [place] [address]- 4788 Aug, [facility] [address] [id number] [place] [address]- 2613 Aug, [facility] [address] [id number] [place] [address]- 2944 Aug, [facility] [address] [id number] [place] [address]- 9263 Aug, [facility] [address] [id number] [place] [address]- 4456 Aug, [facility] [address] [id number] [place] [address]- 2431 Jul, [facility] [address] [id number] [place] [address]- 6835 Jul, [facility] [address] [id number] [place] [address]- 3993 June, [facility] [address] [id number] [place] [address]- 7547 June, [facility] [address] [id number] [place] [address]- 9855 June, [facility] [address] [id number] [place] [address]- 9443 June, [facility] [address] [id number] [place] [address]- 2404 June, [facility] [address] [id number] [place] [address]- 4078 June, [facility] [address] [id number] [place] [address]- 0220 June, [facility] [address] [id number] [place] [address]- 6982 June, [facility] [address] [id number] [place] [address]- 4540 June, [facility] [address] [id number] [place] [address]- 1989 June, [facility] [address] [id number] [place] [address]- 8927 June, [facility] [address] [id number] [place] [address]- 0843 May, [facility] [address] [id number] [place] [address]- 8481 May, [facility] [address] [id number] [place] [address]- 0693 May, [facility] [address] [id number] [place] [address]- 1980 May, [facility] [address] [id number] [place] [address]- 5574 Apr, [facility] [address] [id number] [place] [address]- 3696 Apr, [facility] [address] [id number] [place] [address]- 0463 Apr, [facility] [address] [id number] [place] [address]- 6419 Mar, [facility] [address] [id number] [place] [address]- 0075 Mar, [facility] [address] [id number] [place] [address]- 7102 Feb, [facility] [address] [id number] [place] [address]- 4558 Feb, [facility] [address] [id number] [place] [address]- 7530 Feb, [facility] [address] [id number] [place] [address]- 8868 Feb, [facility] [address] [id number] [place] [address]- 5021 16 Feb, 2012 [facility] [address] [id number] [place] [address]- 1386 14 Feb, 2012 [facility] [address] [id number] [place] [address]- 1731 Feb, [facility] [address] [id number] [place] [address]- 3746 Jan, [facility] [address] [id number] [place] [address]- 2546 31 Jan, 2012 [facility] [address] [id number] [place] [address]- 4786 28 Jan, 2012 [facility] [address] [id number] [place] [address]- 6986 Jan, [facility] [address] [id number] [place] [address]- 6906 Jan, [facility] [address] [id number] [place] [address]- 1446 Jan, [facility] [address] [id number] [place] [address]- 8376 Jan, [facility] [address] [id number] [place] [address]16 Jan, [facility] [address] [id number] [place] [address] Jan, [facility] [address] [id number] [place] [address]- 0680 Jan, [facility] [address] [id number] [place] [address]- 4267 Jan, [facility] [address] [id number] [place] [address]- 5433 Dec, [facility] [address] [id number] [place] [address]- 7156 Dec, [facility] [address] [id number] [place] [address]- 7111 Dec, [facility] [address] [id number] [place] [address]- 8114 Dec, [facility] [address] [id number] [place] [address]- 4735 Nov, [facility] [address] [id number] [place] [address]078 Nov, [facility] [address] [id number] [place] [address]- 5529 08 Nov, 2011 [facility] [address] [id number] [place] [address]- 2061 27 Oct, 2011 [facility] [address] [id number] [place] [address] 2546 24 Oct, 2011 [facility] [address] [id number] [place] [address]- 5396 21 Oct, 2011 [facility] [address] [id number] [place] [address]- 2155 10 Oct, 2011 [facility] [address] [id number] [place] [address]- 8126 07 Oct, 2011 [facility] [address] [id number] [place] [address]- 2219 04 Oct, 2011 [facility] [address] [id number] [place] [address]- 6608 04 Oct, 2011 [facility] [address] [id number] [place] [address]- 9631 29 Sep, 2011 [facility] [address] [id number] [place] [address]- 0701 Sep, [facility] [address] [id number] [place] [address]- 8971 23 Sep, 2011 [facility] [address] [id number] [place] [address] 2543 Sep, [facility] [address] [id number] [place] [address]- 2540 Sep, [facility] [address] [id number] [place] [address]- 6860 30 Aug, 2011 [facility] [address] [id number] [place] [address] 2546 Aug, [facility] [address] [id number] [place] [address]- 1785 17 Aug, 2011 [facility] [address] [id number] [place] [address]- 6531 16 Aug, 2011 [facility] [address] [id number] [place] [address]- 7584 Aug, [facility] [address] [id number] [place] [address]- 1599 Aug, [facility] [address] [id number] [place] [address]- 2074 Aug, [facility] [address] [id number] [place] [address]- 9250 Jul, [facility] [address] [id number] [place] [address]- 7543 Jul, [facility] [address] [id number] [place] [address]- 6802 Jul, [facility] [address] [id number] [place] [address]- 5094 Jul, [facility] [address] [id number] [place] [address]- 8309 Jul, [facility] [address] [id number] [place] [address]- 4047 Jul, [facility] [address] [id number] [place] [address]- 2712 Jul, [facility] [address] [id number] [place] [address]- 7799 Jul, [facility] [address] [id number] [place] [address]- 2254 Jul, [facility] [address] [id number] [place] [address]- 9939 June, [facility] [address] [id number] [place] [address]- 3503 June, [facility] [address] [id number], [place] [address]- 4450 June, [facility] [address] [id number] [place] [address]- 0024 June, [facility] [address] [id number] [place] [address]- 8296 June, [facility] [address] [id number] [place] [address]- 8327 June, [facility] [address] [id number] [place] [address]- 2105 June, [facility] [address] [id number] [place] [address]- 2133 June, [facility] [address] [id number] [place] [address]- 0096 May, [facility] [address] [id number] [place] [address]- 6204 May, [facility] [address] [id number] [place] [address]- 1074 May, [facility] [address] [id number] [place] [address]- 7306 May, [facility] [address] [facility] [id number] [place] [address]- 8916 May, [facility] [address] [id number] [place] [address]- 6534 16 May, 2011 [facility] [address] [id number] [place] [address]- 1100 May, [facility] [address] [id number] [place] [address]- 3572 Apr, [facility] [place] [address] [id number] [place] [address]- 8764 Apr, [facility] [address] [id number] [place] [address]- 2724 Apr, [facility] [address] [id number] [place] [address]- 1416 Apr, [facility] [facility] [address] [id number] [place] [address]- 2066 Apr, [facility] [place] [facility] [address] [id number] [place] [address] 2546 Apr, [facility] [address] [id number] [place] [address]- 7206 Apr, [facility] [place] [facility] [address] [id number] [place] [address]- 2756 Mar, [facility] [place] [facility] [address] [id number] [place] [address]- 4516 Mar, [facility] [place] [facility] [address] [facility] [id number] [place] [address]- 4336 14 Mar, 2011 [facility] [place] [facility] [address] [facility] [id number] [place] [address]- 6996 Mar, [facility] [place] [facility] [address] [id number] [place] [address]- 5932 Mar, [facility] [place] [facility] [address] [facility] [id number] [place] [address]- 3475 Mar, [facility] [address] [facility] [id number] [place] [address]- 2192 Mar, [facility] [place] [facility] [address] [id number] [place] [address]- 6684 Feb, [facility] [place] [facility] [address] [id number] [place] [address]- 1976 Feb, [facility] [place] [facility] [address] [id number] [place] [address]- 0526 Feb, [facility] [place] [facility] [address] [id number] [place] [address]- 2549 Feb, [facility] [place] [facility] [address] [id number] [place] [address]- 2812 Feb, [facility] [address] [id number] [place] [address]- 7617 Feb, [facility] [place] [facility] [address] [id number] [place] [address]- 1314 Feb, [facility] [address] [id number] [place] [address]- 3524 Feb, [facility] [address] [id number] [place] [address]- 9337 Feb, [facility] [address] [id number] [place] [address]- 0305 Feb, [facility] [address] [id number] [place] [address]- 7207 Jan, [facility] [address] [id number] [place] [address]- 6232 Jan, [facility] [address] [id number] [place] [address]- 8557 Jan, [facility] [address] [id number] [place] [address]- 6541 Jan, [facility] [place] [facility] [address] [facility] [id number] [place] [address]- 0751 Jan, [facility] [address] [id number] [place] [address]- 9249 Jan, [facility] [place] [facility] [address] [id number] [place] [address]- 9024 Jan, [facility] [place] [facility] [address] [id number] [place] [address]- 1980 Jan, [facility] [place] [facility] [address] [id number] [place] [address]- 3947 Jan, [facility] [place] [facility] [address] [facility] [id number] [place] [address]- 9467 Jan, [facility] [place] [facility] [address] [id number] [place] [address]- 5658 Jan, [facility] [place] [facility] [address] [id number] [place] [address]- 4148 Dec, [facility] [place] [facility] [address] [id number] [place] 7822 17 Dec, 2010 [facility] [place] [facility] [address] [id number] [place] [address]- 2564 17 Dec, 2010 [facility] [place] [facility] [address] [id number] [place] [address]- 4577 16 Dec, 2010 [facility] [place] [facility] [address] [id number] [place] [address]- 0153 14 Dec, 2010 [facility] [place] [facility] [address] [id number] [place] [address]- 3145 Dec, [facility] [place] [facility] [address] [id number] [place] [address]- 1859 Dec, [facility] [place] [facility] [address] [id number] [place] [address]- 4038 Dec, [facility] [place] [facility] [address] [id number] [place] [address]- 2178 Dec, [facility] [place] [facility] [address] [facility] [id number] [place] [address]- 9729 Nov, [facility] [place] [facility] [address] [id number] [place] [address]- 6743 31 Nov, 2010 [facility] [place] [facility] [address] [id number] [place] [address]- 6466 Nov, [facility] [place] [facility] [address] [id number] [place] [address]- 7182 24 Nov, 2010 [facility] [place] [facility] [address] [id number] [place] [address]- 0514 24 Nov, 2010 [facility] [place] [facility] [address] [id number] [place] [address]- 6415 13 Nov, 2010 [facility] [address] [facility] [id number], [place] [address]- 3339 Aug, [facility] [address] [facility] [id number], [place] [address]- 7997 14 Feb, 2010 [facility] [address], [place] [address]- 8695 14 Jan, 2010 [facility] [address] [facility] [id number] [place] [address]- 6216 Jan, [facility] [address] [facility] [id number] [place] [address] 69271- 9642 Jan, [facility] [id number] [place] [address] 055[address]- 6007 Jan, [facility] [id number] [place] [address] 67[address]- 3402 Jan, [facility] [id number], [place] [address]- 1930 Dec, [facility] [id number], [place] [address]- 8607 Dec, [facility] [id number], [place] [address]- 3669 Dec, [facility] [id number], [place] [address]- 9831 Dec, [facility] [id number], [place] [address]- 9038 Nov, [facility] [address] [id number], [place] [address]- 9441 Nov, [facility] [id number], [place] [address]- 2164 Nov, IMMUNIZATIONS No Known Immunizations SOCIAL HISTORY Never Assessed REASON FOR VISIT Hip pain- both sides - x1week depression, anxiety getting worse - elba Rucker , Please obtain deferred Hep C labs at this visit--tatiana, having sharp abdomen pain with nausea - x1week Elba RUCKER PLAN OF CARE Activity Details Follow Up 3 Weeks Reason: VITAL SIGNS Height 68 in 2018-01-06 Weight 249.4 lbs 2018-01-06 Temperature 97.4 degrees Fahrenheit 2018-01-06 Heart Rate 107 bpm 2018-01-06 Respiratory Rate 20 2018-01-06 BMI 37.92 kg/m2 2018-01-06 Blood pressure systolic 112 mmHg 2018-01-06 Blood pressure diastolic 74 mmHg 2018-01-06 MEDICATIONS Medication Instructions Dosage Frequency Start Date End Date Duration Status Aspirin 81 MG Orally Once a day 1 tablet 24h Active Fentanyl 50 MCG/HR Transdermal 48 hrs 1 patch to skin Dec, 30 days Active Lyrica 150 MG Orally 3 times a day 1 capsule 8h 28 days Active BD Ultra-Fine Micro Pen Needle 32G X 6 MM as directed Nov, Active Nabumetone 500 MG TAKE 1 TABLET BY MOUTH TWICE DAILY AFTER MEALS 30 Active Saxenda (Dose Escalation) 18 mg/3 mL Subcutaneous Once a day 0.6 mg QD x 7 days, 1.2 mg QD x 7 days, 1.8 mg QD x 7 days, 2.4 mg QD x 7 days, then 3 mg QD ( GOAL) 24h Aug, Active Bethanechol Chloride 10 MG Orally Three times a day 1 tablet after meals 8h Dec, 10 days Active Fluoxetine HCl 40 MG TAKE 2 CAPSULES BY MOUTH ONCE DAILY IN THE MORNING 30 Active Furosemide 20 mg Orally Once a day 1 tablet 24h Active Sumatriptan Succinate 100 mg Orally Once a day 1 tablet as needed one time 24h 30 Active Pantoprazole Sodium 40 MG TAKE 1 TABLET BY MOUTH ONCE DAILY 30 Active Tizanidine HCl 4 MG Orally Three times a day 1 tablet as needed 8h May, Active Clonidine HCl 0.1 MG Orally twice a day 1 tablet 12h 30 Active Klonopin 1 MG Orally 3 times a day 1 tablet 8h 30 days Active Promethazine HCl 25 MG TAKE 1 TABLET BY MOUTH EVERY 12 HOURS NEEDED 30 Active RESULTS No Results PROCEDURES No Known [...]
--- OUTSIDE RECORDS SUMMARY | 2018-01-13 20:26 | XMS REPORT ---
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 Active 306571574 Problem Hypertension I10 Active 27411059 Problem Arthritis M19.90 Active 8658292 Problem 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 Active 20883727 Problem Anxiety F41.9 Active 06031456 Problem Unspecified episodic mood disorder F39 Active 71875677 Problem Left hip pain M25.552 Active 36730465 ALLERGIES No Information ENCOUNTERS Encounter Location Date Diagnosis [facility] [address] [facility] [id number] [address] Jan, [facility] [address] [id number] [address] Dec, [facility] [address] [facility] [id number], [place] [address] Dec, Unspecified episodic mood disorder F39 [facility] [id number] [place] [address] 17295- 7242 Dec, [facility] [id number] [place] [address] 84475- 0356 Dec, [facility] [id number] [place] [address] 99505- 1590 Dec, [facility] [id number] [place] [address] 77677- 9143 Dec, Difficulty urinating R39.198 [facility] [id number] [place] [address] 20654- 1955 Dec, Left hip pain M25.552 ; Dysuria R30.0 ; Anxiety F41.9 and Acute cystitis without hematuria N30.00 [facility] [id number] [place] [address] 93066- 9740 Dec, Unspecified episodic mood disorder F39 [facility] [id number] [place] [address] 66767- 4649 Nov, Arthritis M19.90 [facility] [id number] [place] [address] 82278- 1828 Nov, [facility] [id number] [place] [address] 05565- 4911 Nov, Chronic hepatitis C without hepatic coma B18.2 and Screening for malignant neoplasm of breast Z12.31 [facility] [id number] [place] [address] 48017- 2505 Nov, [facility] [id number] [place] [address] 18424- 2280 Nov, Chronic hepatitis C without hepatic coma B18.2 [facility] [id number] [place] [address] 01438- 7904 Nov, [facility] [id number] [place] [address] 00779- 7249 Nov, Arthritis M19.90 and Unspecified episodic mood disorder F39 [facility] [id number] [place] [address] 18355- 7279 Oct, [facility] [id number] [place] [address] 92078- 6217 Oct, Chronic hepatitis C without hepatic coma B18.2 and Encounter for immunization Z23 [facility] [address] 38095- 2809 Oct, [facility] [id number] [place] [address] 24757- 3466 Oct, Arthritis M19.90 and Unspecified episodic mood disorder F39 [facility] [id number] [place] [address] 93056- 5535 Sep, Chronic hepatitis C without hepatic coma B18.2 [facility] [address] 96298- 0462 Sep, Gastroesophageal reflux disease, esophagitis presence not specified K21.9 and Other chronic pain G89.29 [facility] [id number] [place] [address] 49755- 1968 Sep, [facility] [id number] [place] [address] 53225- 8868 Sep, [facility] [id number] [place] [address] 71420- 0668 Sep, Chronic hepatitis C without hepatic coma B18.2 [facility] [id number] [place] [address] 07728- 2902 Sep, 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 [facility] [id number] [place] [address] 73281- 8843 Sep, Arthritis M19.90 [facility] [id number] [place] [address] 99398- 8190 Sep, [facility] [address] 2929 Sep, Unspecified episodic mood disorder F39 [facility] [id number] [place] [address] 10435501- 0144 Aug, [facility] [address] [id number] [id number] Aug, [facility] [id number] [place] [address] 72288- 8579 Aug, Arthritis M19.90 [facility] [id number] [place] [address] 37163- 7532 Aug, [facility] [id number] [place] [address] 64770- 9942 Aug, Obesity (BMI 30.0-34.9) E66.9 ; Unspecified episodic mood disorder F39 and Hypertension I10 [facility] [id number] [place] [address] 69477- 0065 Aug, Unspecified episodic mood disorder F39 [facility] [address], [place] [address] 7081 Aug, [facility] [id number] [place] [address] 43921- 3828 Jul, Unspecified episodic mood disorder F39 [facility] [address], [place] [address] 0062 Jul, [facility] [address], [place] [address] Jul, Arthritis M19.90 [facility] [address], [place] [address] 2368 Jul, Left hip pain M25.552 ; Hypertension I10 ; Other obesity due to excess calories E66.09 and Body mass index (BMI) of 34.0-34.9 in adult Z68.34 [facility] [id number] [place] [address] 75429- 9832 Jul, Unspecified episodic mood disorder F39 [facility] [id number] [place] [address] 87072- 6916 June, Gastroesophageal reflux disease, esophagitis presence not specified K21.9 [facility] [id number] [place] [address] 44791- 0475 June, [facility] [id number] [place] [address] 89337- 7168 June, [facility] [id number] [place] [address] 47844- 3639 June, Arthritis M19.90 [facility] [id number] [place] [address] 59881- 2414 June, [facility] [id number] [place] [address] 55553- 6598 June, [facility] [id number] [place] [address] 96495- 8797 June, Unspecified episodic mood disorder F39 [facility] [id number] [place] [address] 11979- 5365 May, Unspecified episodic mood disorder F39 [facility] [id number] [place] [address] 22868- 6571 May, [facility] [id number] [place] [address] 00346- 0272 May, Arthritis M19.90 [facility] [address], [place] [address] May, Dysuria R30.0 ; Abscess L02.91 and Acute cystitis without hematuria N30.00 [facility] [address], [place] [address]- 9246 May, 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 ; Unspecified episodic mood disorder F39 ; Combined drug dependence excluding opioids, 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 ; Anxiety F41.9 and Other psychoactive substance dependence, 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 [facility] [id number] [place] [address] 52956- 7039 May, [facility] [id number] [place] [address] 25718- 4280 May, 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 ; Unspecified episodic mood disorder F39 ; Combined drug dependence excluding opioids, 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 ; Other psychoactive substance dependence, 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 and Anxiety F41.9 [facility] [id number] [place] [address] 16723- 4847 May, Other chronic pain G89.29 ; Left hip pain M25.552 ; Hypertension I10 ; 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, 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 and Unspecified episodic mood disorder F39 [facility] [id number] [place] [address] 48574- 1586 Apr, [facility] [id number] [place] [address] 94437 -1056 Apr, Neck pain M54.2 ; Left hip pain M25.552 and Fall, initial encounter W19.XXXA [facility] [id number] [place] [address] 74715- 7767 Apr, Unspecified episodic mood disorder F39 ; Combined drug dependence excluding opioids, 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 ; Anxiety F41.9 ; Other psychoactive substance dependence, 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 and 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 [facility] [id number] [place] [address] 63298- 6779 Apr, [facility] [id number] [place] [address] 28593- 0384 Apr, Arthritis M19.90 and Unspecified episodic mood disorder F39 [facility] [id number] [place] [address] 09150- 1708 Apr, Unspecified episodic mood disorder F39 [facility] [id number] [place] [address] 85035- 4529 Apr, [facility] [id number] [place] [address] 41966- 1711 Apr, [facility] [id number] [place] [address] 79139- 9987 Apr, Unspecified episodic mood disorder F39 ; Combined drug dependence excluding opioids, 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 ; Anxiety F41.9 ; Other psychoactive substance dependence, 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 and 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 [facility] [id number] [place] [address] 15852- 0669 Mar, Unspecified episodic mood disorder F39 [facility] [id number] [place] [address] 64647- 1596 Mar, Gastroesophageal reflux disease, esophagitis presence not specified K21.9 [facility] [id number] [place] [address] 84462- 7754 Mar, Arthritis M19.90 and Unspecified episodic mood disorder F39 [facility] [id number] [place] [address] 50433- 2469 Feb, [facility] [id number] [place] [address] 89359- 3271 Feb, [facility] [id number] [place] [address] 90950- 0052 Feb, [facility] [id number] [place] [address] 22810- 4559 Feb, Arthritis M19.90 [facility] [id number] [place] [address] 96089- 8755 Feb, Non-pressure chronic ulcer of right calf, 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 ; Unspecified episodic mood disorder F39 and Left hip pain M25.552 [facility] [id number] [place] [address] 32477- 9508 Feb, [facility] [address], [place] [address]- 2848 Feb, [facility] [id number] [place] [address] 23466- 5803 Jan, Arthritis M19.90 [facility] [id number] [place] [address] 56168- 3318 Jan, Left hip pain M25.552 and Non-pressure chronic ulcer of right calf, 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 [facility] [id number] [place] [address] 11140- 1446 Jan, Chronic hepatitis C without hepatic coma B18.2 [id number] [place] [address] 92283- 0591 Jan, Encounter for immunization Z23 ; Venous insufficiency ( chronic) (peripheral) I87.2 ; Non-pressure chronic ulcer of unspecified calf limited to breakdown of skin L97.201 and Gastroesophageal reflux disease, esophagitis presence not specified K21.9 [address] [facility] [id number] [place] [address] 92698- 4785 Jan, [id number] [place] [address] 34041- 8829 Jan, Chronic hepatitis C without hepatic coma B18.2 and Encounter for immunization Z23 [address] [facility] [id number] [place] [address] 61929- 8125 Jan, Arthritis M19.90 [facility] [id number] [place] [address] 00590- 3606 Jan, [facility] [id number] [place] [address] 60947- 2861 Dec, [address] [facility] [id number] [place] [address] 61137- 4446 Dec, Unspecified episodic mood disorder F39 [address] [id number] [place] [address] 02082- 7587 Dec, Arthritis M19.90 [facility] [id number] [place] [address] 90535- 8307 Dec, Arthritis M19.90 [facility] [id number] [place] [address] 58522- 7009 Nov, [facility] [id number] [place] [address] 12438- 9511 Nov, [facility] [id number] [place] [address] 93683- 9808 Nov, Other psychoactive substance dependence, 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 ; 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, 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 and Chronic hepatitis C without hepatic coma B18.2 [facility] [id number] [place] [address] 08629- 5290 Nov, Arthritis M19.90 [facility] [id number] [place] [address] 17588 -2092 Oct, Partial thickness burn of abdomen, initial encounter T21.22XA [facility] [id number] [place] [address] 71453- 2706 Oct, [facility] [id number] [place] [address] 79276- 3899 Sep, Arthritis M19.90 [facility] [id number] [place] [address] 73797- 2665 Sep, [facility] [id number] [place] [address] 17150- 1208 Sep, [facility] [id number] [place] [address] 23779- 9069 Sep, Unspecified episodic mood disorder F39 ; Chronic hepatitis C without hepatic coma B18.2 and Left hip pain M25.552 [facility] [id number] [place] [address] 72751- 1671 Sep, Arthritis M19.90 and Left hip pain M25.552 [facility] [address], [place] [address]- 3516 Aug, [facility] [address], [place] [address]- 8601 Aug, [facility] [address], [place] [address]- 7832 Aug, Chronic hepatitis C without hepatic coma B18.2 [facility] [id number] [place] [address] 31616- 4184 Aug, [facility] [id number] [place] [address] 99062- 9936 Aug, Chronic hepatitis C without hepatic coma B18.2 [facility] [address], [place] [address]- 9426 Aug, 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, 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 [facility] [id number] [place] [address] 88921- 3039 Aug, [facility] [id number], [place] [address]- 9019 Aug, Chronic hepatitis C without hepatic coma B18.2 and Hypertension I10 [facility] [address], [place] [address]- 4386 Jul, [facility] [address], [place] [address]- 6913 June, [facility] [address], [place] [address]- 5652 Apr, Fibromyalgia M79.7 ; Left hip pain M25.552 and Decubitus ulcer of sacral region, stage 1 L89.151 [facility] [address], [place] [address]- 9884 Apr, [facility] [address], [place] [address]- 4973 Apr, [facility] [address], [place] [address]- 2864 Feb, [facility] [id number] [place] [address] 73798- 7227 Dec, Anxiety F41.9 ; Combined drug dependence excluding opioids, 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 and Unspecified episodic mood disorder F39 [facility] [id number] [place] [address] 54463- 7135 Dec, [facility] [id number] [place] [address] 27551- 3707 Nov, [facility] [id number] [place] [address] 48745- 8092 Nov, [facility] [id number] [place] [address] 26131- 3923 Nov, 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 and Anxiety F41.9 [facility] [id number] [place] [address] 31808- 5234 Oct, [facility] [id number] [place] [address] 80615 -2528 14 Oct, 2015 Open wound of left thigh, initial encounter S71.102A [facility] [id number] [place] [address] 43004- 6635 Oct, [facility] [id number] [place] [address] 02569- 4504 Sep, Unspecified episodic mood disorder F39 ; Other disorder of impulse control 312.39 ; Combined drug dependence excluding opioids, 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 and Anxiety F41.9 [facility] [id number] [place] [address] 85137- 0999 Sep, Other disorder of impulse control 312.39 ; Combined drug dependence excluding opioids, 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 ; Anxiety F41.9 and Unspecified episodic mood disorder F39 [facility] [id number] [place] [address] 01880- 5135 Sep, Other chronic pain G89.29 [facility] [address], [place] [address]- 4706 Sep, [facility] [id number] [place] [address] 41568- 6894 Sep, [facility] [id number] [place] [address] 65272- 2322 Aug, [facility] [id number] [place] [address] 85782- 0789 Aug, [facility] [id number] [place] [address] 69996- 4518 Aug, [facility] [id number] [place] [address] 71537- 4225 Jul, [facility] [id number] [place] [address] 98120- 9702 Jul, [facility] [id number] [place] [address] 34402- 7934 Jul, [facility] [id number] [place] [address] 41163- 4329 Jul, Arthritis M19.90 ; Chronic hepatitis C without hepatic coma B18.2 and Left hip pain M25.552 [facility] [address], [place] [address]- 5652 Jul, Left knee pain M25.562 [facility] [id number] [place] [address] 02318- 3886 Jul, Combined drug dependence excluding opioids, 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 ; Anxiety F41.9 ; Other disorder of impulse control 312.39 and Unspecified episodic mood disorder F39 [facility] [id number] [place] [address] 55044- 4225 Jul, Left knee pain M25.562 [facility] [id number] [place] [address] 40928- 9650 Jul, Left knee pain M25.562 and Left hip pain M25.552 [facility] [address], [place] [address]- 7769 Jul, [facility] [id number] [place] [address] 32357- 8084 June, [facility] [id number] [place] [address] 35631- 0136 June, Combinations of drug dependence excluding opioid type drug, 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 ; Other disorder of impulse control 312.39 ; Unspecified episodic mood disorder F39 and Anxiety F41.9 [place] [id number] [place] [address] 16042- 3900 June, Other fatigue R53.83 ; Headache R51 and Left knee pain M25.562 [facility] [id number] [place] [address] 75479- 3250 June, Unspecified episodic mood disorder F39 ; Combinations of drug dependence excluding opioid type drug, 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 ; Other disorder of impulse control 312.39 and Anxiety F41.9 [facility] [id number] [place] [address] 10619- 3033 June, Anxiety F41.9 [facility] [id number] [place] [address] 45271- 1593 June, Pain in left knee M25.562 [facility] [id number] [place] [address] 27451- 5187 June, Anxiety F41.9 and Combinations of drug dependence excluding opioid type drug, 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 [facility] [id number] [place] [address] 25533- 8442 June, Unspecified episodic mood disorder 296.90 ; Combinations of drug dependence excluding opioid type drug, 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 and Other disorder of impulse control 312.39 [facility] [id number] [place] [address] 06429- 7463 June, Anxiety F41.9 and Unspecified episodic mood disorder 296.90 [facility] [address], [place] [address]- 7884 May, Arthritis M19.90 [facility] [id number] [place] [address] 07582- 2511 May, Arthritis M19.90 [facility] [id number] [place] [address] 29622- 1895 May, Anxiety F41.9 ; Combinations of drug dependence excluding opioid type drug, 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 and Other disorder of impulse control 312.39 [facility] [id number] [place] [address] 12160- 8737 May, Left knee pain M25.562 [facility] [id number] [place] [address] [phone]- [phone] May, Arthritis M19.90 [facility] [id number] [place] [address] [phone]- [phone] May, [facility] [id number] [place] [address] [phone]- [phone] May, Anxiety F41.9 ; Unspecified episodic mood disorder 296.90 ; Combinations of drug dependence excluding opioid type drug, 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 and Other disorder of impulse control 312.39 [facility] [id number] [place] [address] 14802- [phone] May, Left knee pain M25.562 [facility] [address] [place] [id number] [place] [address] 71270- 5111 May, Left knee pain M25.562 ; Combinations of drug dependence excluding opioid type drug, 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 ; Other disorder of impulse control 312.39 ; Fibromyalgia M79.7 ; Hypertension I10 ; Unspecified episodic mood disorder 296.90 and Left hip pain M25.552 [facility] [id number] [place] [address] 44960- 3611 May, Unspecified episodic mood disorder 296.90 ; Other disorder of impulse control 312.39 ; Combinations of drug dependence excluding opioid type drug, 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 and Anxiety F41.9 [place] [id number] [place] [address] 89104- 5570 May, Left knee pain M25.562 ; Combinations of drug dependence excluding opioid type drug, 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 ; Other disorder of impulse control 312.39 ; Fibromyalgia M79.7 ; Hypertension I10 ; Unspecified episodic mood disorder 296.90 and Left hip pain M25.552 [place] [id number] [place] [address] 34990- 6306 May, Anxiety F41.9 ; Unspecified episodic mood disorder 296.90 ; Other disorder of impulse control 312.39 and Combinations of drug dependence excluding opioid type drug, 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 [place] [id number] [place] [address] 76319- 2721 Apr, 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 and 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, implants and grafts, initial encounter T84.82XA [place] [id number] [place] [address] 78597- 9093 Apr, Anxiety F41.9 ; Unspecified episodic mood disorder 296.90 ; Combinations of drug dependence excluding opioid type drug, 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 and Other disorder of impulse control 312.39 [place] [address] [address] 9771 Apr, Arthritis M19.90 [place] [id number] [place] [address] 47816- 4022 Apr, Anxiety F41.9 ; Unspecified episodic mood disorder 296.90 ; Combinations of drug dependence excluding opioid type drug, 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 and Other disorder of impulse control 312.39 [place] [address] [address] 3094 17 Apr, 2015 Arthritis M19.90 [place] [address] [id number] [place] [address] 22279- 2205 15 Apr, 2015 [facility] [id number] [place] [address] 25691- 3651 15 Apr, 2015 [facility] [id number] [place] [address] 79445- 7682 14 Apr, 2015 Unspecified episodic mood disorder 296.90 ; Combinations of drug dependence excluding opioid type drug, 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 ; Other disorder of impulse control 312.39 and Anxiety F41.9 [facility] [id number] [place] [address] 58140 -5882 11 Apr, 2015 Left knee pain M25.562 [facility] [id number] [place] [address] 18001- 7581 11 Apr, 2015 [facility] [id number] [place] [address] 29670- 4593 29 Mar, 2015 Unspecified episodic mood disorder 296.90 ; Anxiety F41.9 ; Other disorder of impulse control 312.39 and Combinations of drug dependence excluding opioid type drug, 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 [facility] [id number] [place] [address] 90415- 9307 Mar, Hyperpigmentation L81.9 [facility] [id number] [place] [address] 08503- 6314 Mar, Arthritis M19.90 and Anxiety F41.9 [facility] [id number] [place] [address] 83318- 8568 Mar, Unspecified episodic mood disorder F39 ; Combined drug dependence excluding opioids, 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 ; 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 and Anxiety F41.9 [facility] [id number] [place] [address] 09786- 9414 12 Mar, 2015 Well woman exam Z01.419 ; Other fatigue R53.83 ; Hot flashes N95.1 ; Depression, unspecified depression type F32.9 and Body mass index (BMI) of 23.0-23.9 in adult Z68.23 [place] [id number] [place] [address] 96008- 2482 11 Mar, 2015 Unspecified episodic mood disorder 296.90 ; Other disorder of impulse control 312.39 and Anxiety F41.9 [place] [address] [id number] [place] [address] 29739- 0284 11 Mar, 2015 Well woman exam Z01.419 [...] of breast Z12.39 and Limited mobility Z74.09 [place] [address] 69127- 7846 Mar, [place] [address] 65659- 0511 Mar, [place] [address] 63997- 5225 Mar, [place] [address] 33524- 5429 Mar, Other specified complication of internal orthopedic prosthetic devices, implants and grafts, initial encounter T84.89XA ; Fibromyalgia M79.7 ; Hypertension I10 ; Anemia D64.9 ; Insomnia G47.00 ; Anxiety F41.9 ; Arthritis M19.90 and Migraine G43.909 [place] [address] [id number] [place] [address] 94620- 0590 Mar, [place] [address] 15050- 6630 Feb, [facility] [address] [address]- 9995 Feb, Arthritis M19.90 and Anxiety F41.9 [facility] [address], [place] [address]- 2532 Feb, [facility] [id number] [place] [address] 45115- 0251 Feb, [facility] [address], [place] [address]- 6944 Feb, [facility] [id number] [place] [address] 77425- 1090 Feb, [facility] [address], [place] [address]- 1220 Feb, Anxiety F41.9 [facility] [id number] [place] [address] 99651- 3359 Feb, [facility] [address], [place] [address]- 5441 Feb, [facility] [id number] [place] [address] 61492- 7712 Feb, 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 and Fibromyalgia M79.7 [facility] [address], [place] [address]- 1525 Feb, [facility] [address] [address]- 4647 Jan, [facility] [address] [address]- 6450 Jan, [facility] [address] [address]- 4678 Jan, [facility] [address] [address]- 5219 Jan, [facility] [address], [place] [address]- 3747 16 Jan, 2015 [facility] [id number] [place] [address] 28499- 6724 Jan, [facility] [id number] [place] [address] 82569- 2490 Jan, [facility] [id number] [place] [address] 551234- 4835 Jan, [facility] [id number] [place] [address] 98587- 4517 Dec, [facility] [id number] [place] [address] 63015- 2551 Dec, Left knee pain M25.562 [facility] [id number] [place] [address] 61004- 2414 Dec, Left knee pain M25.562 [facility] [id number] [place] [address] 22998- 1694 Dec, Fibromyalgia M79.7 ; Hypertension I10 and Arthritis M19.90 [facility] [id number] [place] [address] 35480- 6857 Dec, [facility] [id number] [place] [address] 64726- 2110 Dec, [facility] [id number] [place] [address] 66357- 9978 Dec, [facility] [id number] [place] [address] 99838- 4454 Dec, [facility] [id number] [place] [address] 30199- 0348 Nov, [facility] [address], [place] [address]- 1678 Nov, [facility] [id number] [place] [address] 29677- 4981 Nov, [facility] [address] [id number] [address]- 7792 Nov, Hypertension I10 [facility] [place] [facility] [address] [id number] [place] [address]- 8671 23 Oct, 2014 [facility] [place] [facility] [address] [id number] [place] [address]- 7028 Oct, [facility] [address] [id number], [place] [address]- 7513 Oct, 2014 [facility] [place] [facility] [address] [id number] [place] [address]- 4071 Oct, [facility] [address] [id number], [place] [address]- 0003 Oct, [facility] [address] [facility] [id number], [place] [address]- 2445 Sep, [facility] [address] [id number], [place] [address]- 6509 Sep, [facility] [address] [facility] [id number], [place] [address]- 7550 Sep, Hip pain associated with recalled total hip arthroplasty hardware 996.77 [facility] [address] [id number], [place] [address]- 4654 Sep, [facility] [place] [facility] [address] [facility] [id number], [place] [address]- 3078 Sep, [facility] [place] [facility] [address] [id number], [place] [address]- 2229 Sep, [facility] [place] [facility] [address] [facility] [id number], [place] [address]- 1536 Aug, [facility] [place] [facility] [address] [facility] [id number], [place] [address]- 4190 Jul, [facility] [place] [facility] [address] [facility] [id number], [place] [address]- 1939 June, [facility] [place] [facility] [address] [id number] [place] [address]- 8591 June, [facility] [place] [facility] [address] [id number] [place] [address]- 9979 June, [facility] [place] [facility] [address] [id number] [place] [address]- 0516 June, [facility] [place] [facility] [address] [id number] [place] [address]- 8171 June, [facility] [place] [facility] [address] [id number] [place] [address]- 9268 June, [facility] [place] [facility] [address] [id number] [place] [address]- 2875 May, [facility] [place] [facility] [address] [id number] [place] [address]- 0689 May, [facility] [place] [facility] [address] [id number] [place] [address]- 2578 May, [facility] [place] [facility] [address] [id number] [place] [address]- 5230 Apr, [facility] [place] [facility] [address] [id number] [place] [address]- 3665 Apr, [facility] [place] [facility] [address] [id number] [place] [address]- 2177 Apr, [facility] [place] [facility] [address] [id number] [place] [address]- 4689 Apr, [facility] [place] [facility] [address] [id number] [place] [address]- 7309 Apr, [facility] [place] [facility] [address] [id number] [place] [address]- 3971 Apr, [facility] [place] [facility] [address] [id number] [place] [address]- 8269 Apr, [facility] [place] [facility] [address] [id number] [place] [address]- 8746 Apr, [facility] [place] [facility] [address] [id number] [place] [address]- 8874 Apr, [facility] [place] [facility] [address] [id number] [place] [address]- 8545 Apr, [facility] [place] [facility] [address] [id number] [place] [address]- 6314 Apr, [facility] [place] [facility] [address] [id number] [place] [address]- 8325 Mar, [facility] [place] [facility] [address] [id number] [place] [address]- 0296 Mar, [facility] [place] [facility] [address] [id number] [place] [address]- 3385 Mar, [facility] [place] [facility] [address] [id number] [place] [address]- 1977 Mar, [facility] [place] [facility] [address] [id number] [place] [address]- 8163 Mar, [facility] [place] [facility] [address] [id number] [place] [address]- 0534 Mar, [facility] [place] [facility] [address] [facility] [id number] [place] [address]- 9739 Feb, [facility] [place] [facility] [address] [facility] [id number] [place] [address]- 5117 Feb, [facility] [place] [facility] [address] [id number] [place] [address]- 2110 Feb, [facility] [place] [facility] [address] [id number] [place] [address]- 6747 Feb, [facility] [place] [facility] [address] [id number] [place] 9313 Jan, [facility] [place] [facility] [address] [id number] [place] 5303 Jan, [facility] [place] [facility] [address] [id number] [place] [address]- 3828 Jan, [facility] [place] [facility] [address] [id number] [place] [address]- 4184 Jan, [facility] [place] [facility] [address] [id number] [place] [address]- 4401 Dec, [facility] [place] [facility] [address] [id number] [place] [address]- 8963 Dec, [facility] [place] [facility] [address] [id number] [place] [address]- 3612 Dec, [facility] [place] [facility] [address] [id number] [place] [address]- 8517 Dec, [facility] [place] [facility] [address] [id number] [place] [address]- 9062 Dec, [facility] [place] [facility] [address] [id number] [place] [address]- 5511 Dec, [facility] [place] [facility] [address] [id number] [place] [address]- 8982 Dec, [facility] [place] [facility] [address] [id number] [place] [address]- 6813 Dec, [facility] [place] [facility] [address] [id number] [place] [address]- 4536 Dec, [facility] [place] [facility] [address] [id number] [place] [address]- 5216 Dec, [facility] [place] [facility] [address] [id number] [place] [address]- 1896 Dec, [facility] [place] [facility] [address] [id number] [place] [address]- 7418 Nov, [facility] [place] [facility] [address] [id number] [place] [address]- 5370 Nov, [facility] [place] [facility] [address] [id number], [place] [address]- 1712 28 Nov, 2013 [facility] [place] [facility] [address] [id number] [place] [address]- 5828 17 Nov, 2013 [facility] [place] [facility] [address] [id number] [place] [address]- 2384 17 Nov, 2013 [facility] [place] [facility] [address] [id number] [place] [address]- 0365 15 Nov, 2013 [facility] [place] [facility] [address] [id number] [place] [address]- 9676 15 Nov, 2013 [facility] [place] [facility] [address] [id number] [place] [address]- 4124 15 Nov, 2013 [facility] [place] [facility] [address] [id number] [place] [address]- 2932 15 Nov, 2013 [facility] [place] [facility] [address] [id number] [place] [address]- 1404 14 Nov, 2013 [facility] [place] [facility] [address] [id number] [place] [address]- 4741 14 Nov, 2013 [facility] [place] [facility] [address] [id number] [place] [address]- 8878 14 Nov, 2013 [facility] [place] [facility] [address] [id number] [place] [address]- 8224 14 Nov, 2013 [facility] [place] [facility] [address] [id number], [place] [address]- 7200 13 Nov, 2013 [facility] [place] [facility] [address] [id number], [place] [address]- 4780 13 Nov, 2013 [facility] [place] [facility] [address] [id number] [place] [address]- 9539 11 Nov, 2013 [facility] [place] [facility] [address] [id number] [place] [address]- 2830 11 Nov, 2013 [facility] [place] [facility] [address] [id number], [place] [address]- 7192 07 Nov, 2013 [facility] [place] [facility] [address] [id number] [place] [address]- 7842 07 Nov, 2013 [facility] [place] [facility] [address] [id number] [place] [address]- 3150 07 Nov, 2013 [facility] [place] [facility] [address] [id number] [place] [address]- 6716 07 Nov, 2013 [facility] [place] [facility] [address] [id number] [place] [address]- 7205 30 Sep, 2013 [facility] [place] [facility] [address] [id number] [place] [address]- 254 30 Oct, 2013 [facility] [place] [facility] [address] [id number] [place] [address]- 0244 26 Oct, 2013 [facility] [place] [facility] [address] [id number] [place] [address]- 7586 26 Oct, 2013 [facility] [place] [facility] [address] [id number] [place] [address]- 254 22 Oct, 2013 [facility] [place] [facility] [address] [id number] [place] [address]- 2543 22 Oct, 2013 [facility] [place] [facility] [address] [id number] [place] [address]- 2541 18 Oct, 2013 [facility] [place] [facility] [address] [id number] [place] [address]- 2541 18 Sep, 2013 [facility] [place] [facility] [address] [id number] [place] [address] 2542 18 Sep, 2013 [facility] [place] [facility] [address] [id number] [place] [address]- 2543 18 Sep, 2013 [facility] [place] [facility] [address] [id number] [place] [address] 2547 12 Oct, 2013 [facility] [place] [facility] [address] [id number] [place] [address]- 2545 12 Oct, 2013 [facility] [place] [facility] [address] [id number] [place] [address]- 2547 Oct, [facility] [place] [facility] [address] [id number] [place] [address]- 8604 Oct, [facility] [place] [facility] [address] [id number] [place] [address]- 0203 Sep, [facility] [place] [facility] [address] [id number] [place] [address]- 5603 Sep, [facility] [place] [facility] [address] [id number] [place] [address]- 3821 Sep, [facility] [place] [facility] [address] [id number] [place] [address]- 2617 Sep, [facility] [place] [facility] [address] [id number] [place] [address]- 9968 Sep, [facility] [place] [facility] [address] [id number] [place] [address]- 4743 Sep, [facility] [place] [facility] [address] [id number] [place] [address]- 7739 Sep, [facility] [place] [facility] [address] [id number] [place] [address]- 9136 Sep, [facility] [place] [facility] [address] [id number] [place] [address]- 6223 Sep, [facility] [place] [facility] [address] [id number] [place] [address]- 4190 Sep, [facility] [place] [facility] [address] [id number] [place] [address]- 5675 Sep, [facility] [place] [facility] [address] [id number] [place] [address]- 5938 Sep, [facility] [place] [facility] [address] [id number] [place] [address]- 2692 Sep, [facility] [place] [facility] [address] [id number] [place] [address]- 7111 Sep, [facility] [place] [facility] [address] [id number] [place] [address]- 7238 Sep, [facility] [place] [facility] [address] [id number] [place] [address]- 5855 Sep, [facility] [place] [facility] [address] [id number] [place] [address]- 6676 Sep, [facility] [place] [facility] [address] [id number] [place] [address]- 7532 Sep, [facility] [place] [facility] [address] [id number] [place] [address]- 2892 Aug, [facility] [place] [facility] [address] [id number] [place] [address]- 9185 Aug, [facility] [place] [facility] [address] [id number] [place] [address]- 8931 Aug, [facility] [place] [facility] [address] [id number] [place] [address]- 4545 Aug, [facility] [place] [facility] [address] [id number] [place] [address] Aug, [facility] [place] [facility] [address] [id number] [place] [address] Aug, [facility] [place] [facility] [address] [id number] [place] [address] Jul, [facility] [place] [facility] [address] [id number] [place] [address] Jul, [facility] [place] [facility] [address] [id number] [place] [address] Jul, [facility] [place] [facility] [address] [id number] [place] [address] Jul, [facility] [place] [facility] [address] [id number] [place] [address] June, [facility] [place] [facility] [address] [id number] [place] [address] June, [facility] [place] [facility] [address] [id number] [place] [address] June, [facility] [place] [facility] [address] [id number] [place] [address] June, [facility] [place] [facility] [address] [id number] [place] [address] June, [facility] [place] [facility] [address] [id number] [place] [address] June, [facility] [place] [facility] [address] [id number] [place] [address] June, [facility] [place] [facility] [address] [id number] [place] [address] May, [facility] [place] [facility] [address] [id number] [place] [address] May, [facility] [place] [facility] [address] [id number] [place] [address] May, [facility] [place] [facility] [address] [id number] [place] [address] May, [facility] [place] [facility] [address] [id number] [place] [address] May, [facility] [place] [facility] [address] [id number] [place] [address] May, [facility] [place] [facility] [address] [id number] [place] [address] 31 Apr, 2013 [facility] [place] [facility] [address] [id number] [place] [address] 31 Apr, 2013 [facility] [place] [facility] [address] [id number] [place] [address] 28 Apr, 2013 [facility] [place] [facility] [address] [id number] [place] [address] 28 Apr, 2013 [facility] [place] [facility] [address] [id number] [place] [address] 14 Apr, 2013 [facility] [place] [facility] [address] [id number] [place] [address] 14 Apr, 2013 [facility] [place] [facility] [address] [id number] [place] [address] 12 Apr, 2013 [facility] [place] [facility] [address] [id number] [place] [address] 12 Apr, 2013 [facility] [place] [facility] [address] [id number] [place] [address] 10 Apr, 2013 [facility] [place] [facility] [address] [id number] [place] [address] 10 Apr, 2013 [facility] [place] [facility] [address] [id number] [place] [address] 04 Apr, 2013 [facility] [place] [facility] [address] [id number] [place] [address] Apr, [facility] [place] [facility] [address] [id number] [place] [address] Apr, [facility] [place] [facility] [address] [id number] [place] [address] Apr, [facility] [place] [facility] [address] [id number] [place] [address] Mar, [facility] [place] [facility] [address] [id number] [place] [address] Mar, [facility] [place] [facility] [address] [id number] [place] [address] Mar, [facility] [place] [facility] [address] [id number] [place] [address]10 Feb, [facility] [place] [facility] [address] [id number] [place] [address] 7[address] Feb, [facility] [place] [facility] [address] [id number] [place] [address] 3128 Feb, [facility] [place] [facility] [address] [id number] [place] [address] 3185 Feb, [facility] [address] [id number] [place] [address] 4777 Feb, [facility] [address] [id number] [place] [address] 7[address] Feb, [facility] [address] [id number] [place] [address] 1224 Feb, [facility] [address] [id number] [place] [address] 9894 Feb, [facility] [address] [id number] [place] [address] 4811 Feb, [facility] [address] [id number] [place] [address] 7473 Feb, [facility] [address] [id number] [place] [address] 3661 Jan, [facility] [address] [id number] [place] [address] 4154 Jan, [facility] [address] [id number] [place] [address] 8451 Jan, [facility] [address] [id number] [place] [address] 1804 Jan, [facility] [address] [id number] [place] [address] 2549 Jan, [facility] [address] [id number] [place] [address] 7363 Jan, [facility] [address] [id number] [place] [address] 3496 Jan, [facility] [address] [id number] [place] [address] 9403 Jan, [facility] [address] [id number] [place] [address] 6954 Jan, [facility] [address] [id number] [place] [address] 0797 Jan, [facility] [place] [facility] [address] [id number] [place] [address] 9458 Jan, [facility] [address] [id number] [place] [address]- 9900 Jan, [facility] [place] [facility] [address] [id number] [place] [address]- 8088 16 Jan, 2013 [facility] [address] [id number] [place] [address]- 2978 Jan, [facility] [place] [facility] [address] [id number] [place] [address]- 4181 Jan, [facility] [address] [facility] [id number] [place] [address]- 3111 Jan, [facility] [address] [id number] [place] [address]- 4641 Jan, [facility] [place] [facility] [address] [id number] [place] [address]- 6631 Jan, [facility] [place] [facility] [address] [id number] [place] [address]- 9320 Jan, [facility] [place] [facility] [address] [facility] [id number] [place] [address]- 6374 Jan, [facility] [place] [facility] [address] [id number], [place] [address]- 7319 Jan, [facility] [place] [facility] [address] [id number] [place] [address]- 2552 Dec, [facility] [place] [facility] [address] [id number] [place] [address] 3006 Dec, [facility] [place] [facility] [address] [id number], [place] [address] 2544 Dec, [facility] [place] [facility] [address] [id number], [place] [address] 9486 Dec, [facility] [place] [facility] [address] [id number] [place] [address]- 0965 Dec, [facility] [place] [facility] [address] [id number], [place] [address] 2503 Dec, [facility] [place] [facility] [address] [id number] [place] [address]- 1870 Dec, [facility] [place] [facility] [address] [id number], [place] [address] 2015 Dec, [facility] [place] [facility] [address] [id number] [place] [address]- 7298 Dec, [facility] [place] [facility] [address] [id number] [place] [address]- 8372 Dec, [facility] [place] [facility] [address] [id number], [place] [address] 8640 Nov, [facility] [place] [facility] [address] [id number], [place] [address]- 3537 Nov, [facility] [place] [facility] [address] [id number], [place] [address] 3563 Nov, [facility] [place] [facility] [address] [id number], [place] [address]- 5568 Nov, [facility] [place] [facility] [address] [id number], [place] [address]- 0196 Nov, [facility] [place] [facility] [address] [id number], [place] [address] 6708 11 Nov, 2012 [facility] [place] [facility] [address] [id number], [place] [address]- 6792 11 Nov, 2012 [facility] [place] [facility] [address] [id number], [place] [address]- 0327 11 Nov, 2012 [facility] [place] [facility] [address] [id number], [place] [address]- 0704 10 Nov, 2012 [facility] [place] [facility] [address] [id number] [place] [address]- 2127 Nov, [facility] [address] [id number] [place] [address]- 1478 Oct, [facility] [place] [facility] [address] [id number] [place] [address]- 4176 Oct, [facility] [place] [facility] [address] [id number] [place] [address]- 1786 Oct, [facility] [place] [facility] [address] [id number] [place] [address]- 6362 Oct, [facility] [place] [facility] [address] [id number] [place] [address]- 3589 Oct, [facility] [place] [facility] [address] [id number] [place] [address]- 0736 Sep, [facility] [place] [facility] [address] [id number] [place] [address]- 2825 Sep, [facility] [address] [id number] [place] [address]- 8127 Aug, [facility] [place] [facility] [address] [id number] [place] [address]- 7224 Aug, [facility] [place] [facility] [address] [id number] [place] [address]- 6408 Aug, [facility] [place] [facility] [address] [id number] [place] [address]- 9991 Aug, [facility] [place] [facility] [address] [id number] [place] [address]- 7431 Aug, [facility] [place] [facility] [address] [id number] [place] [address]- 4496 Aug, [facility] [place] [facility] [address] [id number] [place] [address]- 2546 Aug, [facility] [place] [facility] [address] [id number] [place] [address]- 9151 Jul, [facility] [address] [id number] [place] [address]- 2855 Jul, [facility] [address] [id number] [place] [address]- 5340 June, [facility] [address] [id number] [place] [address]- 5192 June, [facility] [address] [id number] [place] [address]- 1220 June, [facility] [address] [id number] [place] [address]- 0576 June, [facility] [address] [id number] [place] [address]- 1903 June, [facility] [address] [id number] [place] [address]- 9717 June, [facility] [address] [id number] [place] [address]- 9435 June, [facility] [address] [id number] [place] [address]- 3105 June, [facility] [address] [id number] [place] [address]- 3673 June, [facility] [address] [id number] [place] [address]- 6183 June, [facility] [place] [facility] [address] [id number] [place] [address]- 8045 June, [facility] [place] [facility] [address] [id number] [place] [address]- 9188 May, [facility] [place] [facility] [address] [id number] [place] [address]- 7139 May, [facility] [place] [facility] [address] [id number] [place] [address]- 5273 May, [facility] [place] [facility] [address] [id number] [place] [address]- 1521 05 May, 2012 [facility] [address] [id number] [place] [address]- 8869 Apr, [facility] [place] [facility] [address] [id number] [place] [address]- 4174 Apr, [facility] [address] [id number] [place] [address]- 2326 Apr, [facility] [place] [facility] [address] [id number] [place] [address]- 2450 Mar, [facility] [place] [facility] [address] [id number] [place] [address]- 5746 Mar, [facility] [place] [facility] [address] [id number] [place] [address]- 6656 Feb, [facility] [address] [id number] [place] [address]- 8331 Feb, [facility] [place] [facility] [address] [id number] [place] [address]- 9108 Feb, [facility] [place] [facility] [address] [id number] [place] [address]- 9031 Feb, [facility] [address] [id number] [place] [address]- 3029 16 Feb, 2012 [facility] [place] [facility] [address] [id number] [place] [address]- 4046 14 Feb, 2012 [facility] [place] [facility] [address] [id number] [place] [address]- 2974 Feb, [facility] [place] [facility] [address] [id number] [place] [address]- 0446 Jan, [facility] [place] [facility] [address] [id number] [place] [address]- 9726 Jan, [facility] [place] [facility] [address] [id number] [place] [address]- 0815 Jan, [facility] [place] [facility] [address] [id number] [place] [address]- 6768 Jan, [facility] [place] [facility] [address] [id number] [place] [address]- 3663 Jan, [facility] [place] [facility] [address] [id number] [place] [address]- 1213 Jan, [facility] [place] [facility] [address] [id number] [place] [address]- 0465 Jan, [facility] [place] [facility] [address] [id number] [place] [address]- 7118 Jan, [facility] [place] [facility] [address] [id number] [place] [address]- 6245 Jan, [facility] [place] [facility] [address] [id number] [place] [address]- 2686 Jan, [facility] [place] [facility] [address] [id number] [place] [address]- 4326 Jan, [facility] [place] [facility] [address] [id number] [place] [address]- 5351 Dec, [facility] [place] [facility] [address] [id number] [place] [address]- 3435 Dec, [facility] [place] [facility] [address] [id number] [place] [address]- 7965 Dec, [facility] [place] [facility] [address] [id number] [place] [address]- 2936 Dec, [facility] [place] [facility] [address] [id number] [place] [address]- 6699 Nov, [facility] [place] [facility] [address] [id number] [place] [address]- 4329 Nov, [facility] [place] [facility] [address] [id number] [place] [address]- 8419 Nov, [facility] [place] [facility] [address] [id number] [place] [address]- 2546 27 Oct, 2011 [facility] [place] [facility] [address] [id number] [place] [address] 2546 24 Oct, 2011 [facility] [place] [facility] [address] [id number] [place] [address] 2546 21 Oct, 2011 [facility] [place] [facility] [address] [id number] [place] [address] 2546 10 Oct, 2011 [facility] [place] [facility] [address] [id number] [place] [address] 2546 07 Oct, 2011 [facility] [place] [facility] [address] [id number] [place] [address]- 5746 04 Oct, 2011 [facility] [place] [facility] [address] [id number] [place] [address]- 5473 04 Oct, 2011 [facility] [place] [facility] [address] [id number] [place] [address]- 1224 29 Sep, 2011 [facility] [place] [facility] [address] [id number] [place] [address]- 0171 Sep, [facility] [place] [facility] [address] [id number] [place] [address]- 7751 Sep, [facility] [place] [facility] [address] [id number] [place] [address]- 5227 Sep, [facility] [place] [facility] [address] [id number] [place] [address]- 9874 Sep, [facility] [place] [facility] [address] [id number] [place] [address]- 9745 30 Aug, 2011 [facility] [place] [facility] [address] [id number] [place] [address]- 9476 Aug, [facility] [place] [facility] [address] [id number] [place] [address]- 1952 17 Aug, 2011 [facility] [place] [facility] [address] [id number] [place] [address]- 2546 16 Aug, 2011 [facility] [place] [facility] [address] [id number] [place] [address]- 5292 13 Aug, 2011 [facility] [address] [id number] [place] [address]- 2450 Aug, [facility] [place] [facility] [address] [id number] [place] [address]- 2456 Aug, [facility] [address] [id number] [place] [address]- 2178 Jul, [facility] [place] [facility] [address] [id number] [place] [address]- 2181 Jul, [facility] [address] [id number] [place] [address]- 2826 Jul, [facility] [place] [facility] [address] [id number] [place] [address]- 8909 Jul, [facility] [place] [facility] [address] [id number] [place] [address]- 0251 Jul, [facility] [address] [id number] [place] [address]- 5265 Jul, [facility] [place] [facility] [address] [id number] [place] [address]- 8233 Jul, [facility] [address] [id number] [place] [address]- 8856 Jul, [facility] [place] [facility] [address] [id number] [place] [address]- 1355 Jul, [facility] [place] [facility] [address] [id number] [place] [address]- 3249 June, [facility] [place] [facility] [address] [id number] [place] [address]- 3932 June, [facility] [place] [facility] [address] [id number] [place] [address]- 6677 June, [facility] [place] [facility] [address] [id number] [place] 1370 June, [facility] [address] [id number] [place] [address]- 5926 June, [facility] [place] [facility] [address] [id number] [place] [address]- 4551 June, [facility] [place] [facility] [address] [id number] [place] [address]- 0180 June, [facility] [place] [facility] [address] [id number] [place] [address]- 4739 June, [facility] [place] [facility] [address] [id number] [place] [address]- 5634 May, [facility] [place] [facility] [address] [id number] [place] [address]- 9736 May, [facility] [place] [facility] [address] [id number] [place] [address]- 1856 May, [facility] [place] [facility] [address] [id number] [place] [address]- 5156 May, [facility] [place] [facility] [address] [id number] [place] [address]- 6609 May, [facility] [place] [facility] [address] [id number] [place] [address]- 6486 May, [facility] [place] [facility] [address] [id number] [place] [address]- 2434 May, [facility] [place] [facility] [address] [id number] [place] [address]- 7164 Apr, [facility] [place] [facility] [address] [id number] [place] [address]- 4441 Apr, [facility] [place] [facility] [address] [id number] [place] [address]- 3338 Apr, [facility] [place] [facility] [address] [id number] [place] [address]- 7121 Apr, [facility] [place] [facility] [address] [id number], [place] [address]- 1032 Apr, [facility] [address] [id number] [place] [address]- 4232 Apr, [facility] [place] [facility] [address] [id number] [place] [address]- 4876 Apr, [facility] [address] [id number] [place] [address]- 5126 Mar, [facility] [place] [facility] [address] [id number] [place] [address]- 5890 Mar, [facility] [place] [facility] [address] [id number] [place] [address]- 6856 14 Mar, 2011 [facility] [place] [facility] [address] [id number] [place] [address]- 4156 13 Mar, 2011 [facility] [address] [id number] [address]- 5238 Mar, [facility] [address] [id number] [place] [address]- 2784 Mar, [facility] [place] [facility] [address] [id number] [place] [address]- 1174 Mar, [facility] [address] [facility] [id number] [place] [address]- 9436 Feb, [facility] [place] [facility] [address] [id number] [place] [address] 2542 Feb, [facility] [place] [facility] [address] [id number] [place] [address]- 0494 Feb, [facility] [place] [facility] [address] [id number] [place] [address]- 3483 Feb, [facility] [place] [facility] [address] [facility] [id number] [place] [address]- 4729 Feb, [facility] [place] [facility] [address] [facility] [id number] [place] [address]- 8648 Feb, [facility] [address] [id number] [place] [address]- 6661 Feb, [facility] [place] [facility] [address] [id number] [place] [address]- 8414 Feb, [facility] [place] [facility] [address] [id number] [place] [address]- 2585 Feb, [facility] [place] [facility] [address] [id number] [place] [address]- 7472 Feb, [facility] [address] [id number] [place] [address]- 2867 Jan, [facility] [place] [facility] [address] [id number] [place] [address]- 5629 Jan, [facility] [address] [id number] [place] [address]- 3325 Jan, [facility] [address] [id number] [place] [address] Jan, [facility] [place] [facility] [address] [id number] [place] [address] Jan, [facility] [place] [facility] [address] [id number] [place] [address] Jan, [facility] [place] [facility] [address] [id number] [place] [address] Jan, [facility] [place] [facility] [address] [id number], [place] [address] Jan, [facility] [place] [facility] [address] [id number] [place] [address] Jan, [facility] [place] [facility] [address] [id number] [place] [address] Jan, [facility] [place] [facility] [address] [id number] [place] [address] Jan, [facility] [place] [facility] [address] [id number], [place] [address] 17 Dec, 2010 [facility] [place] [facility] [address] [id number] [place] [address] 17 Dec, 2010 [facility] [place] [facility] [address] [id number] [place] [address]60 17 Dec, 2010 [facility] [place] [facility] [address] [id number] [place] [address] 16 Dec, 2010 [facility] [place] [facility] [address] [id number] [place] [address] 14 Dec, 2010 [facility] [place] [facility] [address] [id number] [place] [address] 09 Dec, 2010 [facility] [place] [facility] [address] [id number] [place] [address] 08 Dec, 2010 [facility] [place] [facility] [address] [facility] [id number] [place] [address] 07 Dec, 2010 [facility] [place] [facility] [address] [id number] [place] [address] 15[address] 02 Dec, 2010 [facility] [place] [facility] [address] [facility] [id number] [place] [address]- [address] 31 Nov, 2010 [facility] [place] [facility] [address] [facility] [id number] [place] [address] Nov, [facility] [place] [facility] [address] [id number], [place] [address] 27 Nov, 2010 [facility] [place] [facility] [address] [id number], [place] [address] 24 Nov, 2010 [facility] [place] [facility] [address] [id number] [place] [address] 24 Nov, 2010 [facility] [place] [facility] [address] [facility] [id number] [place] [address]- 7416 13 Nov, 2010 [facility] [place] [facility] [address] [facility] [id number] [place] [address] Aug, [facility] [place] [facility] [address] [facility] [id number], [place] [address] 14 Feb, 2010 [facility] [id number], [place] [address] 14 Jan, 2010 [facility] [address] [facility] [id number], [place] [address] Jan, [facility] [id number], [place] [address] Jan, [facility] [address] [facility] [id number], [place] [address] Jan, [facility] [id number], [place] [address] Jan, [facility] [id number], [place] [address] Dec, [facility] [id number], [place] [address] Dec, [facility] [id number], [place] [address] Dec, [facility] [id number], [place] [address] Dec, [facility] [address] [id number], [place] [address] Nov, [facility] [address] [id number], [place] [address] Nov, [facility] [address] [id number], [place] [address] Nov, IMMUNIZATIONS No Known Immunizations SOCIAL HISTORY Never Assessed REASON FOR VISIT Triage PLAN OF CARE VITAL SIGNS MEDICATIONS Unknown Medications RESULTS No Results PROCEDURES No Known procedures [...]
--- OUTSIDE RECORDS SUMMARY | 2018-01-13 20:27 | XMS REPORT ---
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 764774731 Problem Other chronic pain G89.29 Active 08445524 Problem Obesity (BMI 30.0-34.9) E66.9 Active 203815624869410 Problem Other obesity due to excess calories E66.09 Active 603537796 Problem Venous insufficiency (chronic) (peripheral) I87.2 Active 722735254 Problem Other psychoactive substance dependence, 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 Active 1265216 Problem Body mass index (BMI) of 34.0-34.9 in adult Z68.34 Active 891239920 Problem Gastroesophageal reflux disease, esophagitis presence not specified K21.9 Active 377454980 Problem Combined drug dependence excluding opioids, 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 Active 128256661 Problem Hypertension I10 Active 00102836 Problem Arthritis M19.90 Active 1907080 Problem 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 Active 71418882 Problem Anxiety F41.9 Active 24390678 Problem Unspecified episodic mood disorder F39 Active 60945168 Problem Left hip pain M25.552 Active 67230322 ALLERGIES No Information ENCOUNTERS Encounter Location Date Diagnosis [facility] [id number] [address] Dec, [facility] [id number], [place] [address] Dec, [facility] [id number], [place] [address] 29[address] Dec, Difficulty urinating R39.198 [facility] [id number] [place] [address] 32492- 2301 Dec, Left hip pain M25.552 ; Dysuria R30.0 ; Anxiety F41.9 and Acute cystitis without hematuria N30.00 [facility] [id number] [place] [address] 55246- 5676 Dec, Unspecified episodic mood disorder F39 [facility] [id number] [place] [address] 24456- 5504 Nov, Arthritis M19.90 [facility] [address] 94394- 3047 Nov, [facility] [id number] [place] [address] 23237- 8416 Nov, Chronic hepatitis C without hepatic coma B18.2 and Screening for malignant neoplasm of breast Z12.31 [facility] [id number] [place] [address] 80819- 4869 Nov, [facility] [id number] [place] [address] 57326- 3776 Nov, Chronic hepatitis C without hepatic coma B18.2 [facility] [id number] [place] [address] 50851- 0701 Nov, [facility] [id number] [place] [address] 44991- 0076 Nov, Arthritis M19.90 and Unspecified episodic mood disorder F39 [facility] [id number] [place] [address] 57539- 8079 Oct, [facility] [id number] [place] [address] 18226- 5082 Oct, Chronic hepatitis C without hepatic coma B18.2 and Encounter for immunization Z23 [facility] [id number] [place] [address] 27549- 3713 Oct, [facility] [address], [place] [address] 5088 Oct, Arthritis M19.90 and Unspecified episodic mood disorder F39 [facility] [id number] [place] [address] 63781- 8259 Sep, Chronic hepatitis C without hepatic coma B18.2 [facility] [id number] [place] [address] 79846- 5146 Sep, Gastroesophageal reflux disease, esophagitis presence not specified K21.9 and Other chronic pain G89.29 [facility] [id number] [place] [address] 08568- 6602 Sep, [facility] [id number] [place] [address] 93619- 7689 Sep, [facility] [id number] [place] [address] 51440- 8606 Sep, Chronic hepatitis C without hepatic coma B18.2 [facility] [id number] [place] [address] 54103- 7466 Sep, 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 [facility] [id number] [place] [address] 68583- 3549 Sep, Arthritis M19.90 [facility] [id number] [place] [address] 20501- 8415 Sep, [facility] [id number] [place] [address] 67378- 9669 Sep, Unspecified episodic mood disorder F39 [facility] [id number] [place] [address] 66334- 9064 Aug, [facility] [id number] [place] [address] [id number] Aug, [facility] [id number] [place] [address] 82326- 8361 Aug, Arthritis M19.90 [facility] [id number] [place] [address] 99971- 0178 Aug, [facility] [id number] [place] [address] 18843- 2198 Aug, Obesity (BMI 30.0-34.9) E66.9 ; Unspecified episodic mood disorder F39 and Hypertension I10 [facility] [id number] [place] [address] 48920- 0541 Aug, Unspecified episodic mood disorder F39 [facility] [id number] [place] [address] 75195- 4458 Aug, [facility] [id number] [place] [address] 98344- 3174 Jul, Unspecified episodic mood disorder F39 [facility] [id number] [place] [address] 31640- 4434 Jul, [facility] [id number] [place] [address] 25848- 4208 Jul, Arthritis M19.90 [facility] [id number] [place] [address] 66692- 9892 12 Jul, 2017 Left hip pain M25.552 ; Hypertension I10 ; Other obesity due to excess calories E66.09 and Body mass index (BMI) of 34.0-34.9 in adult Z68.34 [facility] [id number] [place] [address] 26786- 5773 Jul, Unspecified episodic mood disorder F39 [facility] [address], [place] [address] 0838 June, Gastroesophageal reflux disease, esophagitis presence not specified K21.9 [facility] [id number] [place] [address] 87755- 0873 June, [facility] [id number] [place] [address] 65040- 5107 June, [facility] [id number], [place] [address]- 5154 June, Arthritis M19.90 [facility] [address], [place] [address]- 0982 June, [facility] [id number], [place] [address] 0619 June, [facility] [id number] [place] [address] 60993- 2270 June, Unspecified episodic mood disorder F39 [facility] [id number] [place] [address] 63653- 7397 May, Unspecified episodic mood disorder F39 [facility] [id number] [place] [address] 68066- 6923 May, [facility] [id number] [place] [address] 41986- 7198 May, Arthritis M19.90 [facility] [address], [place] [address] May, Dysuria R30.0 ; Abscess L02.91 and Acute cystitis without hematuria N30.00 [facility] [address], [place] [address]- 4463 May, 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 ; Unspecified episodic mood disorder F39 ; Combined drug dependence excluding opioids, 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 ; Anxiety F41.9 and Other psychoactive substance dependence, 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 [facility] [address] [address]- 2160 May, [facility] [id number] [place] [address] 00517- 0848 May, 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 ; Unspecified episodic mood disorder F39 ; Combined drug dependence excluding opioids, 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 ; Other psychoactive substance dependence, 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552 and Fall, initial encounter W19.XXXA [facility] [address] 12635- 1040 Apr, Unspecified episodic mood disorder F39 ; Combined drug dependence excluding opioids, 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 ; Anxiety F41.9 ; Other psychoactive substance dependence, 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 and 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 [facility] [id number] [place] [address] 94551- 4613 Apr, [facility] [id number] [place] [address] 23031- 7065 Apr, Arthritis M19.90 and Unspecified episodic mood disorder F39 [facility] [id number] [place] [address] 62000- 6506 Apr, Unspecified episodic mood disorder F39 [facility] [id number] [place] [address] 16139- 6141 Apr, [facility] [id number] [place] [address] 42743- 2576 08 Apr, 2017 [facility] [address] 21908- 3714 07 Apr, 2017 Unspecified episodic mood disorder F39 ; Combined drug dependence excluding opioids, 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 ; Anxiety F41.9 ; Other psychoactive substance dependence, 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 and 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 [facility] [id number], [place] [address]- 8101 Mar, Unspecified episodic mood disorder F39 [facility] [id number] [place] [address] 13272- 1726 Mar, Gastroesophageal reflux disease, esophagitis presence not specified K21.9 [facility] [id number] [place] [address] 11557- 6346 Mar, Arthritis M19.90 and Unspecified episodic mood disorder F39 [facility] [id number] [place] [address] 58321- 6252 Feb, [facility] [id number] [place] [address] 30833- 3629 Feb, [facility] [id number] [place] [address] 35145- 9729 Feb, [facility] [id number] [place] [address] 35491- 3540 Feb, Arthritis M19.90 [facility] [id number] [place] [address] 19705- 4753 Feb, Non-pressure chronic ulcer of right calf, 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 ; Unspecified episodic mood disorder F39 and Left hip pain M25.552 [facility] [address], [place] [address]- 0627 Feb, [facility] [id number] [place] [address] 79455- 9676 Feb, [facility] [id number] [place] [address] 07871- 1576 Jan, Arthritis M19.90 [facility] [id number] [place] [address] 42613- 1609 Jan, Left hip pain M25.552 and Non-pressure chronic ulcer of right calf, 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 [facility] [id number] [place] [address] 91784- 1098 Jan, Chronic hepatitis C without hepatic coma B18.2 [facility] [address] 22632- 5998 Jan, Encounter for immunization Z23 ; Venous insufficiency ( chronic) (peripheral) I87.2 ; Non-pressure chronic ulcer of unspecified calf limited to breakdown of skin L97.201 and Gastroesophageal reflux disease, esophagitis presence not specified K21.9 [facility] [address] 87258- 9426 Jan, [facility] [address] 90586- 1478 Jan, Chronic hepatitis C without hepatic coma B18.2 and Encounter for immunization Z23 [facility] [address] 57037- 9674 Jan, Arthritis M19.90 [facility] [address] 01470- 6438 Jan, [facility] [id number] [place] [address] 10459- 9458 Dec, [facility] [id number] [place] [address] 75538- 1023 Dec, Unspecified episodic mood disorder F39 [facility] [id number] [place] [address] 29635- 4576 Dec, Arthritis M19.90 [facility] [id number] [place] [address] 83677- 1780 Dec, Arthritis M19.90 [facility] [address] 10173- 0397 Nov, [facility] [id number] [place] [address] 56657- 1248 Nov, [facility] [address] 09368- 8444 Nov, Other psychoactive substance dependence, 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 ; 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, 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 and Chronic hepatitis C without hepatic coma B18.2 [facility] [id number] [place] [address] 87780- 0575 Nov, Arthritis M19.90 [facility] [id number] [place] [address] 58891 -8550 Oct, Partial thickness burn of abdomen, initial encounter T21.22XA [facility] [id number] [place] [address] 01893- 2704 Oct, [facility] [address] 34628- 9467 Sep, Arthritis M19.90 [facility] [id number] [place] [address] 60966- 2138 Sep, [facility] [id number] [place] [address] 37586- 6557 Sep, [facility] [id number] [place] [address] 78891- 9974 Sep, Unspecified episodic mood disorder F39 ; Chronic hepatitis C without hepatic coma B18.2 and Left hip pain M25.552 [facility] [id number] [place] [address] 77864- 2814 Sep, Arthritis M19.90 and Left hip pain M25.552 [facility] [id number] [place] [address] 05870- 5184 Aug, [facility] [id number] [place] [address] 57355- 1555 Aug, [facility] [id number] [place] [address] 13397- 8174 Aug, Chronic hepatitis C without hepatic coma B18.2 [facility] [id number] [place] [address] 14289- 8698 Aug, [facility] [id number] [place] [address] 31100- 5328 Aug, Chronic hepatitis C without hepatic coma B18.2 [facility] [id number] [place] [address] 75611- 5747 Aug, 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, 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 [facility] [id number] [place] [address] 04589- 8956 Aug, [facility] [id number] [place] [address] 44863- 3998 Aug, Chronic hepatitis C without hepatic coma B18.2 and Hypertension I10 [facility] [id number] [place] [address] 71363- 9452 Jul, [facility] [id number] [place] [address] 41014- 2417 June, [facility] [id number] [place] [address] 67588- 6559 Apr, Fibromyalgia M79.7 ; Left hip pain M25.552 and Decubitus ulcer of sacral region, stage 1 L89.151 [facility] [id number] [place] [address] 94354- 1556 Apr, [facility] [id number] [place] [address] 95555- 5267 Apr, [facility] [id number] [place] [address] 24322- 9814 Feb, [facility] [id number] [place] [address] 18726- 4077 Dec, Anxiety F41.9 ; Combined drug dependence excluding opioids, 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 and Unspecified episodic mood disorder F39 [facility] [id number] [place] [address] 73903- 3785 Dec, [facility] [address] 50013- 8061 Nov, [facility] [id number] [place] [address] 64190- 0524 Nov, [facility] [id number] [place] [address] 89357- 4752 Nov, 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 and Anxiety F41.9 [facility] [id number] [place] [address] 58572- 3480 Oct, [facility] [id number] [place] [address] 07965 -2382 14 Oct, 2015 Open wound of left thigh, initial encounter S71.102A [facility] [id number] [place] [address] 97005- 4123 Oct, [facility] [id number] [place] [address] 10140- 6738 Sep, Unspecified episodic mood disorder F39 ; Other disorder of impulse control 312.39 ; Combined drug dependence excluding opioids, 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 and Anxiety F41.9 [facility] [id number] [place] [address] 74213- 9873 Sep, Other disorder of impulse control 312.39 ; Combined drug dependence excluding opioids, 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 ; Anxiety F41.9 and Unspecified episodic mood disorder F39 [facility] [id number] [place] [address] 12066- 5304 Sep, Other chronic pain G89.29 [facility] [id number] [place] [address] 17129- 3759 Sep, [facility] [id number] [place] [address] 08739- 8478 Sep, [facility] [id number] [place] [address] 77703- 4646 Aug, [facility] [id number] [place] [address] 50968- 0902 Aug, [facility] [address], [place] [address]- 6125 Aug, [facility] [id number] [place] [address] 36151- 2849 Jul, [facility] [id number] [place] [address] 22233- 0420 Jul, [facility] [id number] [place] [address] 72007- 2228 Jul, [facility] [id number] [place] [address] 61750- 1921 Jul, Arthritis M19.90 ; Chronic hepatitis C without hepatic coma B18.2 and Left hip pain M25.552 [facility] [id number] [place] [address] 23238- 8965 Jul, Left knee pain M25.562 [facility] [id number] [place] [address] 82210- 1078 Jul, Combined drug dependence excluding opioids, 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 ; Anxiety F41.9 ; Other disorder of impulse control 312.39 and Unspecified episodic mood disorder F39 [facility] [id number] [place] [address] 91021- 4161 Jul, Left knee pain M25.562 [facility] [id number] [place] [address] 62407- 7831 Jul, Left knee pain M25.562 and Left hip pain M25.552 [facility] [id number] [place] [address] 83339- 3214 Jul, [facility] [id number] [place] [address] 07321- 6581 June, [facility] [id number] [place] [address] 63817- 0771 June, Combinations of drug dependence excluding opioid type drug, 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 ; Other disorder of impulse control 312.39 ; Unspecified episodic mood disorder F39 and Anxiety F41.9 [facility] [id number] [place] [address] 88565- 3644 June, Other fatigue R53.83 ; Headache R51 and Left knee pain M25.562 [facility] [id number] [place] [address] 18925- 1956 June, Unspecified episodic mood disorder F39 ; Combinations of drug dependence excluding opioid type drug, 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 ; Other disorder of impulse control 312.39 and Anxiety F41.9 [facility] [id number] [place] [address] 74332- 1954 June, Anxiety F41.9 [place] [id number] [place] [address] 93763- 9309 June, Pain in left knee M25.562 [place] [address] [id number] [place] [address] 45283- 2885 June, Anxiety F41.9 and Combinations of drug dependence excluding opioid type drug, 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 [place] [address] [id number] [place] [address] 52025- 3144 June, Unspecified episodic mood disorder 296.90 ; Combinations of drug dependence excluding opioid type drug, 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 and Other disorder of impulse control 312.39 [place] [id number] [place] [address] 48679- 0056 June, Anxiety F41.9 and Unspecified episodic mood disorder 296.90 [facility] [id number] [place] [address] 25675- 1326 May, Arthritis M19.90 [place] [address] [id number] [place] [address] 93535- 9581 May, Arthritis M19.90 [facility] [id number] [place] [address] 48590- 6182 May, Anxiety F41.9 ; Combinations of drug dependence excluding opioid type drug, 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 and Other disorder of impulse control 312.39 [place] [id number] [address] 18 May, 2015 Left knee pain M25.562 [place] [id number] [address] 14 May, 2015 Arthritis M19.90 [place] [address] [id number] [place] [address] 90987- 5455 May, [place] [id number] [place] [address] 90842- 9198 May, Anxiety F41.9 ; Unspecified episodic mood disorder 296.90 ; Combinations of drug dependence excluding opioid type drug, 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 and Other disorder of impulse control 312.39 [place] [id number] [place] [address] 87681- 5932 May, Left knee pain M25.562 [place] [address] [id number] [place] [address] 43297- 4440 11 May, 2015 Left knee pain M25.562 ; Combinations of drug dependence excluding opioid type drug, 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 ; Other disorder of impulse control 312.39 ; Fibromyalgia M79.7 ; Hypertension I10 ; Unspecified episodic mood disorder 296.90 and Left hip pain M25.552 [place] [id number] [place] [address] 40328- 9739 May, Unspecified episodic mood disorder 296.90 ; Other disorder of impulse control 312.39 ; Combinations of drug dependence excluding opioid type drug, 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 and Anxiety F41.9 [place] [id number] [place] [address] 25803- 3590 May, Left knee pain M25.562 ; Combinations of drug dependence excluding opioid type drug, 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 ; Other disorder of impulse control 312.39 ; Fibromyalgia M79.7 ; Hypertension I10 ; Unspecified episodic mood disorder 296.90 and Left hip pain M25.552 [place] [address] [address] 8[address] May, Anxiety F41.9 ; Unspecified episodic mood disorder 296.90 ; Other disorder of impulse control 312.39 and Combinations of drug dependence excluding opioid type drug, 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 [facility] [id number] [address] 3[address] 30 Apr, 2015 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 and 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, implants and grafts, initial encounter T84.82XA [facility] [id number] [place] [address] 78631- 9246 Apr, Anxiety F41.9 ; Unspecified episodic mood disorder 296.90 ; Combinations of drug dependence excluding opioid type drug, 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 and Other disorder of impulse control 312.39 [place] [address] [id number] [place] [address] 65709- 0913 Apr, Arthritis M19.90 [facility] [id number] [place] [address] 35625- 2242 Apr, Anxiety F41.9 ; Unspecified episodic mood disorder 296.90 ; Combinations of drug dependence excluding opioid type drug, 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 and Other disorder of impulse control 312.39 [facility] [id number] [place] [address] 27961- 3137 17 Apr, 2015 Arthritis M19.90 [place] [id number] [place] [address] 23883- 1064 15 Apr, 2015 [facility] [id number] [place] [address] 19418- 6344 15 Apr, 2015 [place] [id number] [place] [address] 51617- 1866 14 Apr, 2015 Unspecified episodic mood disorder 296.90 ; Combinations of drug dependence excluding opioid type drug, 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 ; Other disorder of impulse control 312.39 and Anxiety F41.9 [facility] [id number] [place] [address] 26641 -8176 Apr, Left knee pain M25.562 [place] [id number] [place] [address] 97939- 2265 Apr, [place] [id number] [place] [address] 46[address] Mar, Unspecified episodic mood disorder 296.90 ; Anxiety F41.9 ; Other disorder of impulse control 312.39 and Combinations of drug dependence excluding opioid type drug, 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 [place] [id number] [place] [address] 97588- 5134 Mar, Hyperpigmentation L81.9 [place] [id number] [place] [address] 05480- 7274 Mar, Arthritis M19.90 and Anxiety F41.[address] 81268- 6826 Mar, Unspecified episodic mood disorder F39 ; Combined drug dependence excluding opioids, 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 ; 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 and Anxiety F41.9 [place] [id number] [place] [address] 59910- 9053 12 Mar, 2015 Well woman exam Z01.419 ; Other fatigue R53.83 ; Hot flashes N95.1 ; Depression, unspecified depression type F32.9 and Body mass index (BMI) of 23.0-23.9 in adult Z68.23 [place] [id number] [place] [address] 34840- 4798 11 Mar, 2015 Unspecified episodic mood disorder 296.90 ; Other disorder of impulse control 312.39 and Anxiety F41.9 [place] [id number] [place] [address] 49015- 8348 11 Mar, 2015 Well woman exam Z01.419 [...] of breast Z12.39 and Limited mobility Z74.[address] 62343- 0754 Mar, [address] 92479- 4611 Mar, [address] 64521- 5134 Mar, [address] 18814- 1020 Mar, Other specified complication of internal orthopedic prosthetic devices, implants and grafts, initial encounter T84.89XA ; Fibromyalgia M79.7 ; Hypertension I10 ; Anemia D64.9 ; Insomnia G47.00 ; Anxiety F41.9 ; Arthritis M19.90 and Migraine G43.[address] 32074- 7329 Mar, [address] 11155- 5053 Feb, [address] 28433- 2817 Feb, Arthritis M19.90 and Anxiety F41.[address] 86689- 4485 Feb, [address] 72872- 8648 Feb, [address] [place] [address]- 1385 Feb, [facility] [address], [place] [address]- 6956 Feb, [facility] [address], [place] [address]- 8508 Feb, Anxiety F41.9 [facility] [address], [place] [address]- 2090 Feb, [facility] [id number] [place] [address] 54115- 3227 Feb, [facility] [id number] [place] [address] 91654- 2792 Feb, 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 and Fibromyalgia M79.7 [facility] [address], [place] [address]- 8623 Feb, [facility] [address], [place] [address]- 7376 Jan, [facility] [address], [place] [address]- 9151 Jan, [facility] [address], [place] [address]- 3195 Jan, [facility] [address], [place] [address]- 7292 24 Jan, 2015 [facility] [address], [place] [address]- 9531 16 Jan, 2015 [facility] [address], [place] [address]- 3219 08 Jan, 2015 [facility] [address] [address]- 1166 Jan, [facility] [id number] [address]- 5873 Jan, [facility] [id number], [place] [address]- 8767 Dec, [facility] [id number] [place] [address] 60654- 7275 Dec, Left knee pain M25.562 [facility] [id number] [place] [address] 27379- 3762 Dec, Left knee pain M25.562 [facility] [id number] [place] [address] 79401- 4285 Dec, Fibromyalgia M79.7 ; Hypertension I10 and Arthritis M19.90 [facility] [id number] [place] [address] 73573- 9352 Dec, [facility] [id number] [place] [address] 52079- 5904 Dec, [facility] [id number] [place] [address] 57782- 7860 Dec, [facility] [id number] [place] [address] 16188- 5178 Dec, [facility] [id number] [place] [address] 76291- 7338 Nov, [facility] [id number] [place] [address] 90305- 6250 Nov, [facility] [id number] [place] [address] 73479- 6564 Nov, [facility] [id number] [place] [address] 39714- 7656 Nov, Hypertension I10 [facility] [id number] [place] [address] 14992- 3867 Oct, [facility] [id number] [place] [address] 94509- 6000 Oct, [facility] [id number] [place] [address] 44852- 6664 Oct, [facility] [address] [id number] [place] [address]- 1343 Oct, [facility] [address] [id number] [place] [address]- 9966 Oct, [facility] [address] [facility] [id number] [place] [address]- 0456 Sep, [facility] [address] [id number], [place] [address]- 9018 Sep, [facility] [address] [facility] [id number], [place] [address]- 2652 Sep, Hip pain associated with recalled total hip arthroplasty hardware 996.77 [facility] [address] [id number] [place] [address]- 7176 Sep, [facility] [address] [facility] [id number] [address]- 9209 Sep, [facility] [address] [facility] [id number] [address]- 1464 Sep, [facility] [address] [facility] [id number], [place] [address]- 8927 Aug, [facility] [address] [facility] [id number], [place] [address]- 1186 Jul, [facility] [address] [facility] [id number], [place] [address]- 0687 June, [facility] [address] [facility] [id number], [place] [address]- 2756 June, [facility] [address] [facility] [id number], [place] [address]- 6582 June, [facility] [address] [facility] [id number], [place] [address]- 2746 June, [facility] [address] [facility] [id number] [address]- 3026 June, [facility] [place] [facility] [address] [id number] [place] [address] 2546 June, [facility] [place] [facility] [address] [id number] [place] [address]- 9167 30 May, 2014 [facility] [place] [facility] [address] [id number] [place] [address]- 0016 14 May, 2014 [facility] [place] [facility] [address] [id number] [place] [address]- 1776 May, [facility] [place] [facility] [address] [id number] [place] [address]- 1716 30 Apr, 2014 [facility] [place] [facility] [address] [id number] [place] [address]- 7890 30 Apr, 2014 [facility] [place] [facility] [address] [id number] [place] [address]- 4120 Apr, [facility] [place] [facility] [address] [id number] [place] [address]- 7340 Apr, [facility] [place] [facility] [address] [id number] [place] [address]- 4742 Apr, [facility] [place] [facility] [address] [id number] [place] [address]- 7092 Apr, [facility] [place] [facility] [address] [id number] [place] [address]- 8176 Apr, [facility] [place] [facility] [address] [id number] [place] [address]- 3806 12 Apr, 2014 [facility] [place] [facility] [address] [id number] [place] [address]- 6369 10 Apr, 2014 [facility] [place] [facility] [address] [id number] [place] [address]- 6936 05 Apr, 2014 [facility] [place] [facility] [address] [id number] [place] [address]- 6326 05 Apr, 2014 [facility] [place] [facility] [address] [id number] [place] [address]- 9538 Mar, 2014 [facility] [place] [facility] [address] [id number] [place] [address]- 0795 Mar, 2014 [facility] [place] [facility] [address] [id number] [place] [address]- 5300 Mar, 2014 [facility] [place] [facility] [address] [id number] [place] [address]- 2719 Mar, 2014 [facility] [place] [facility] [address] [id number] [place] [address]- 3021 Mar, 2014 [facility] [place] [facility] [address] [id number] [place] [address]- 7398 Mar, [facility] [place] [facility] [address] [id number] [place] [address]- 0263 Feb, [facility] [place] [facility] [address] [facility] [id number] [place] [address]- 4507 Feb, [facility] [place] [facility] [address] [id number] [place] [address]- 0709 Feb, [facility] [place] [facility] [address] [id number] [place] [address]- 4710 Feb, [facility] [place] [facility] [address] [facility] [id number] [place] [address]- 6128 Jan, [facility] [place] [facility] [address] [id number] [place] [address]- 1712 Jan, [facility] [place] [facility] [address] [id number] [place] [address]- 7207 Jan, [facility] [place] [facility] [address] [id number] [place] 4443 Jan, [facility] [place] [facility] [address] [id number] [place] [address]- 3575 Dec, [facility] [place] [facility] [address] [id number] [place] [address]- 2768 Dec, [facility] [place] [facility] [address] [id number] [place] [address]- 2686 Dec, [facility] [place] [facility] [address] [id number] [place] [address]- 0924 Dec, [facility] [place] [facility] [address] [id number] [place] [address]- 2459 Dec, [facility] [place] [facility] [address] [id number] [place] [address]- 8706 Dec, [facility] [place] [facility] [address] [id number] [place] [address]- 1224 Dec, [facility] [place] [facility] [address] [id number] [place] [address]- 0717 Dec, [facility] [place] [facility] [address] [id number] [place] [address]- 8042 Dec, [facility] [place] [facility] [address] [id number] [place] [address]- 3359 Dec, [facility] [place] [facility] [address] [id number] [place] [address]- 4419 Dec, [facility] [place] [facility] [address] [id number] [place] [address]- 1914 Nov, [facility] [place] [facility] [address] [id number] [place] [address]- 7580 Nov, [facility] [place] [facility] [address] [id number] [place] [address]- 4696 Nov, [facility] [place] [facility] [address] [id number] [place] [address]- 0326 Nov, [facility] [place] [facility] [address] [id number] [place] [address]- 8749 Nov, [facility] [place] [facility] [address] [id number] [place] [address]- 2593 15 Nov, 2013 [facility] [place] [facility] [address] [id number] [place] [address]- 2255 Nov, [facility] [place] [facility] [address] [id number] [place] [address]- 2214 15 Nov, 2013 [facility] [place] [facility] [address] [id number] [place] [address]- 7228 15 Nov, 2013 [facility] [place] [facility] [address] [id number] [place] [address]- 8791 14 Nov, 2013 [facility] [place] [facility] [address] [id number] [place] [address]- 0340 14 Nov, 2013 [facility] [place] [facility] [address] [id number] [place] [address]- 6524 14 Nov, 2013 [facility] [place] [facility] [address] [id number] [place] [address]- 3531 14 Nov, 2013 [facility] [place] [facility] [address] [id number] [place] [address]- 4325 13 Nov, 2013 [facility] [place] [facility] [address] [id number], [place] [address]- 6857 13 Nov, 2013 [facility] [place] [facility] [address] [id number] [place] [address]- 1456 11 Nov, 2013 [facility] [place] [facility] [address] [id number], [place] [address]- 4134 11 Nov, 2013 [facility] [place] [facility] [address] [id number], [place] [address]- 0433 07 Nov, 2013 [facility] [place] [facility] [address] [id number], [place] [address]- 0085 07 Nov, 2013 [facility] [place] [facility] [address] [id number] [place] [address]- 3507 07 Nov, 2013 [facility] [place] [facility] [address] [id number], [place] [address]- 3225 07 Nov, 2013 [facility] [place] [facility] [address] [id number] [place] [address]- 2423 30 Oct, 2013 [facility] [place] [facility] [address] [id number] [place] [address]- 5853 30 Oct, 2013 [facility] [place] [facility] [address] [id number] [place] [address]- 5846 26 Oct, 2013 [facility] [place] [facility] [address] [id number] [place] [address]- 0546 26 Oct, 2013 [facility] [place] [facility] [address] [id number] [place] [address]- 2232 22 Oct, 2013 [facility] [place] [facility] [address] [id number] [place] [address]- 7812 22 Oct, 2013 [facility] [place] [facility] [address] [id number] [place] [address]- 1199 18 Oct, 2013 [facility] [place] [facility] [address] [id number] [place] [address]- 3735 18 Oct, 2013 [facility] [place] [facility] [address] [id number] [place] [address]- 7218 18 Oct, 2013 [facility] [place] [facility] [address] [id number] [place] [address]- 1308 18 Oct, 2013 [facility] [place] [facility] [address] [id number] [place] [address]- 2578 12 Oct, 2013 [facility] [place] [facility] [address] [id number] [place] [address]- 4242 12 Oct, 2013 [facility] [place] [facility] [address] [id number] [place] [address]- 7365 Oct, 2013 [facility] [place] [facility] [address] [id number] [place] [address]- 2541 Oct, 2013 [facility] [place] [facility] [address] [id number] [place] [address]- 1034 Sep, [facility] [place] [facility] [address] [id number] [place] [address]- 5316 Sep, [facility] [place] [facility] [address] [id number] [place] [address]- 5721 Sep, [facility] [place] [facility] [address] [id number] [place] [address]- 2785 Sep, [facility] [place] [facility] [address] [id number] [place] [address]- 5191 Sep, [facility] [place] [facility] [address] [id number] [place] [address]- 3833 Sep, [facility] [place] [facility] [address] [id number] [place] [address]- 3188 Sep, [facility] [place] [facility] [address] [id number] [place] [address]- 0212 Sep, [facility] [place] [facility] [address] [id number] [place] [address]- 1813 Sep, [facility] [place] [facility] [address] [id number] [place] [address]- 6262 Sep, [facility] [place] [facility] [address] [id number] [place] [address]- 2037 Sep, [facility] [place] [facility] [address] [id number] [place] [address]- 5865 Sep, [facility] [place] [facility] [address] [id number] [place] [address]- 2168 Sep, [facility] [place] [facility] [address] [id number] [place] [address]- 8076 Sep, [facility] [place] [facility] [address] [id number] [place] [address]- 1376 Sep, [facility] [place] [facility] [address] [id number] [place] [address]- 6085 Sep, [facility] [place] [facility] [address] [id number] [place] [address]- 4003 Sep, [facility] [place] [facility] [address] [id number] [place] [address]- 0774 Sep, [facility] [place] [facility] [address] [id number] [place] [address]- 3673 Aug, [facility] [place] [facility] [address] [id number] [place] [address]- 4451 Aug, [facility] [place] [facility] [address] [id number] [place] [address]- 2508 Aug, [facility] [place] [facility] [address] [id number] [place] [address]- 8771 Aug, [facility] [place] [facility] [address] [id number] [place] [address]- 9460 Aug, [facility] [place] [facility] [address] [id number] [place] [address]- 6920 Aug, [facility] [place] [facility] [address] [id number] [place] [address] Jul, [facility] [place] [facility] [address] [id number] [place] [address] Jul, [facility] [place] [facility] [address] [id number] [place] [address] Jul, [facility] [place] [facility] [address] [id number] [place] [address] Jul, [facility] [place] [facility] [address] [id number] [place] [address] June, [facility] [place] [facility] [address] [id number] [place] [address] June, [facility] [place] [facility] [address] [id number] [place] [address] June, [facility] [place] [facility] [address] [id number] [place] [address] June, [facility] [place] [facility] [address] [id number] [place] [address] June, [facility] [place] [facility] [address] [id number] [place] [address] June, [facility] [place] [facility] [address] [id number] [place] [address] June, [facility] [address] [id number] [place] [address] May, [facility] [place] [facility] [address] [id number] [place] [address] May, [facility] [address] [id number] [place] [address] May, [facility] [place] [facility] [address] [id number] [place] [address] May, [facility] [address] [id number] [place] [address] 1427 May, [facility] [place] [facility] [address] [id number] [place] [address] May, [facility] [address] [id number] [place] [address] Apr, [facility] [address] [id number] [place] [address] 31 Apr, 2013 [facility] [place] [facility] [address] [id number] [place] [address] 28 Apr, 2013 [facility] [address] [id number] [place] [address] 28 Apr, 2013 [facility] [place] [facility] [address] [id number] [place] [address] 14 Apr, 2013 [facility] [place] [facility] [address] [id number] [place] [address] 14 Apr, 2013 [facility] [place] [facility] [address] [id number] [place] [address]37 12 Apr, 2013 [facility] [place] [facility] [address] [id number] [place] [address] 12 Apr, 2013 [facility] [place] [facility] [address] [id number] [place] [address] 10 Apr, 2013 [facility] [place] [facility] [address] [id number] [place] [address] 10 Apr, 2013 [facility] [place] [facility] [address] [id number] [place] [address] Apr, [facility] [place] [facility] [address] [id number] [place] [address]26 Apr, [facility] [place] [facility] [address] [id number] [place] [address] 1784 Apr, [facility] [place] [facility] [address] [id number] [place] [address] 8314 Apr, [facility] [place] [facility] [address] [id number] [place] [address] Mar, [facility] [place] [facility] [address] [id number] [place] [address] Mar, [facility] [place] [facility] [address] [id number] [place] [address] 68[address] Mar, [facility] [place] [facility] [address] [id number] [place] [address] Feb, [facility] [place] [facility] [address] [id number] [place] [address] Feb, [facility] [place] [facility] [address] [id number] [place] [address]98 Feb, [facility] [place] [facility] [address] [id number] [place] [address] 9500 Feb, [facility] [place] [facility] [address] [id number] [place] [address] 97[address] Feb, [facility] [place] [facility] [address] [id number] [place] [address] 1406 Feb, [facility] [place] [facility] [address] [id number] [place] [address] 79[address] Feb, [facility] [place] [facility] [address] [id number] [place] [address]44 Feb, [facility] [address] [id number] [place] [address] Feb, [facility] [address] [id number] [place] [address] 72[address] Feb, [facility] [address] [id number] [place] [address] 8510 Jan, [facility] [address] [id number] [place] [address] Jan, [facility] [address] [id number] [place] [address]- [address]92 Jan, [facility] [address] [id number] [place] [address] 8[address] Jan, [facility] [address] [id number] [place] [address] Jan, [facility] [address] [id number] [place] [address] Jan, [facility] [address] [id number] [place] [address] 2981 Jan, [facility] [address] [id number] [place] [address]- [address] Jan, [facility] [address] [id number] [place] [address] Jan, [facility] [address] [id number] [place] [address] 3736 19 Jan, 2013 [facility] [address] [id number] [place] [address] 9547 17 Jan, 2013 [facility] [place] [facility] [address] [id number] [place] [address] 2052 17 Jan, 2013 [facility] [address] [id number] [place] [address] 8141 16 Jan, 2013 [facility] [place] [facility] [address] [id number] [place] [address]- 0288 Jan, [facility] [place] [facility] [address] [id number] [place] [address] 6[address] Jan, [facility] [place] [facility] [address] [id number] [place] [address]- 8036 Jan, [facility] [place] [facility] [address] [id number] [place] [address] 1876 Jan, [facility] [place] [facility] [address] [id number] [place] [address] 3211 Jan, [facility] [place] [facility] [address] [id number] [place] [address]- [address]100 Jan, [facility] [place] [facility] [address] [id number] [place] [address]- 0130 Jan, [facility] [place] [facility] [address] [id number] [place] [address]- 4540 Jan, [facility] [place] [facility] [address] [id number] [place] [address]- 5647 Dec, [facility] [place] [facility] [address] [id number] [place] [address]- 1218 Dec, [facility] [place] [facility] [address] [id number] [place] [address]- 8668 Dec, [facility] [place] [facility] [address] [id number] [place] [address]- 3570 Dec, [facility] [place] [facility] [address] [id number] [place] [address]- 5627 Dec, [facility] [place] [facility] [address] [id number] [place] [address]- 0615 Dec, [facility] [place] [facility] [address] [id number] [place] [address]- 8614 Dec, [facility] [place] [facility] [address] [id number] [place] [address]- 6018 Dec, [facility] [place] [facility] [address] [id number] [place] [address]- 4321 Dec, [facility] [place] [facility] [address] [id number], [place] [address] 6826 Dec, [facility] [place] [facility] [address] [id number] [place] [address]- 4354 Nov, [facility] [place] [facility] [address] [id number] [place] [address]- 2280 Nov, [facility] [place] [facility] [address] [id number] [place] [address]- 1777 Nov, [facility] [place] [facility] [address] [id number], [place] [address] 8500 Nov, [facility] [place] [facility] [address] [id number], [place] [address]- 6022 Nov, [facility] [place] [facility] [address] [id number], [place] [address]- 4606 Nov, [facility] [place] [facility] [address] [id number], [place] [address]- 2449 Nov, [facility] [place] [facility] [address] [id number], [place] [address]- 1805 Nov, [facility] [place] [facility] [address] [id number], [place] [address]- 3609 Nov, [facility] [place] [facility] [address] [id number], [place] [address]- 6797 Nov, [facility] [place] [facility] [address] [id number], [place] [address]- 1803 Oct, [facility] [place] [facility] [address] [id number], [place] [address]- 6558 Oct, [facility] [place] [facility] [address] [id number], [place] [address]- 2370 Oct, [facility] [place] [facility] [address] [id number] [place] [address]- 9587 Oct, [facility] [address] [id number] [place] [address]- 8785 Oct, [facility] [place] [facility] [address] [id number] [place] [address] 2546 Sep, [facility] [address] [id number] [place] [address]- 1163 Sep, [facility] [place] [facility] [address] [id number] [place] [address]- 2453 Aug, [facility] [address] [id number] [place] [address]- 9848 Aug, [facility] [address] [id number] [place] [address]- 0222 Aug, [facility] [address] [id number] [place] [address]- 2206 Aug, [facility] [address] [id number] [place] [address]- 2410 Aug, [facility] [place] [facility] [address] [id number] [place] [address]- 0914 Aug, [facility] [address] [id number] [place] [address]- 5369 Aug, [facility] [address] [id number] [place] [address]- 2867 Jul, [facility] [place] [facility] [address] [id number] [place] [address]- 2542 Jul, [facility] [place] [facility] [address] [id number] [place] [address]- 4000 June, [facility] [place] [facility] [address] [id number] [place] [address]- 1787 June, [facility] [place] [facility] [address] [id number] [place] [address]- 9377 June, [facility] [address] [id number] [place] [address]- 3601 June, [facility] [address] [id number] [place] [address]- 0171 June, [facility] [address] [id number] [place] [address]- 6756 June, [facility] [address] [id number] [place] [address]- 6561 June, [facility] [address] [id number] [place] [address]- 4350 June, [facility] [address] [id number] [place] [address]- 6248 June, [facility] [address] [id number] [place] [address]- 2760 June, [facility] [address] [id number] [place] [address]- 2818 June, [facility] [address] [id number] [place] [address]- 3704 May, [facility] [address] [id number] [place] [address]- 8677 May, [facility] [address] [id number] [place] [address]- 0977 May, [facility] [address] [id number] [place] [address]- 5275 May, [facility] [address] [id number] [place] [address]- 6902 Apr, [facility] [address] [id number] [place] [address]- 2071 Apr, [facility] [address] [id number] [place] [address]- 0802 Apr, [facility] [address] [id number] [place] [address]- 1121 Mar, [facility] [address] [id number] [place] [address]- 2628 Mar, [facility] [address] [id number] [place] [address]- 8878 Feb, [facility] [address] [id number] [place] [address]- 3085 Feb, [facility] [address] [id number] [place] [address]- 8950 Feb, [facility] [address] [id number] [place] [address]- 6680 Feb, [facility] [address] [id number] [place] [address]- 6103 Feb, [facility] [address] [id number] [place] [address]- 5374 Feb, [facility] [address] [id number] [place] [address]- 4347 Feb, [facility] [address] [id number] [place] [address]- 1012 Jan, [facility] [address] [id number] [place] [address]- 7076 Jan, [facility] [address] [id number] [place] [address]- 0916 Jan, [facility] [address] [id number] [place] [address]- 6415 Jan, [facility] [address] [id number] [place] [address]- 1177 17 Jan, 2012 [facility] [place] [facility] [address] [id number] [place] [address]- 5800 Jan, [facility] [address] [facility] [id number] [place] [address]- 9078 Jan, [facility] [place] [facility] [address] [id number] [place] [address]- 5209 10 Jan, 2012 [facility] [place] [facility] [address] [id number] [place] [address]- 4259 Jan, [facility] [place] [facility] [address] [id number] [place] [address]- 5876 Jan, [facility] [place] [facility] [address] [id number] [place] [address]- 9416 Jan, [facility] [place] [facility] [address] [id number] [place] [address]- 9795 Dec, [facility] [place] [facility] [address] [id number] [place] [address]- 4816 Dec, [facility] [place] [facility] [address] [id number] [place] [address]- 0457 Dec, [facility] [place] [facility] [address] [id number] [place] [address]- 9248 Dec, [facility] [place] [facility] [address] [id number] [place] [address]- 6732 Nov, [facility] [place] [facility] [address] [id number] [place] [address]- 7424 Nov, [facility] [place] [facility] [address] [facility] [id number] [place] [address]- 1369 08 Nov, 2011 [facility] [place] [facility] [address] [id number] [place] [address]- 0421 27 Oct, 2011 [facility] [place] [facility] [address] [id number] [place] [address]- 2541 24 Sep2011 [facility] [place] [facility] [address] [id number] [place] [address]- 0276 21 Sep2011 [facility] [place] [facility] [address] [id number] [place] [address]- 7576 10 Oct, 2011 [facility] [place] [facility] [address] [id number] [place] [address]- 9657 07 Oct, 2011 [facility] [place] [facility] [address] [id number] [place] [address]- 4986 Oct, [facility] [place] [facility] [address] [id number] [place] [address]- 9649 Oct, [facility] [place] [facility] [address] [id number] [place] [address]- 6259 Sep, [facility] [place] [facility] [address] [id number] [place] [address]- 5721 Sep, [facility] [place] [facility] [address] [id number] [place] [address]- 8115 Sep, [facility] [place] [facility] [address] [id number] [place] [address]- 6605 Sep, [facility] [place] [facility] [address] [id number] [place] [address]- 4275 Sep, [facility] [place] [facility] [address] [id number] [place] [address]- 6734 Aug, [facility] [place] [facility] [address] [id number] [place] [address]- 7088 Aug, [facility] [place] [facility] [address] [id number] [place] [address]- 5682 Aug, [facility] [place] [facility] [address] [id number] [place] [address]- 8743 16 Aug, 2011 [facility] [place] [facility] [address] [id number] [place] [address]- 4816 Aug, [facility] [place] [facility] [address] [id number] [place] [address]- 0022 Aug, [facility] [place] [facility] [address] [id number] [place] [address]- 1449 Aug, [facility] [place] [facility] [address] [id number] [place] [address]- 7293 Jul, [facility] [place] [facility] [address] [id number] [place] [address]- 5536 26 Jul, 2011 [facility] [place] [facility] [address] [id number] [place] [address]- 4570 Jul, [facility] [place] [facility] [address] [id number] [place] [address]- 4386 Jul, [facility] [place] [facility] [address] [id number] [place] [address]- 0318 Jul, [facility] [place] [facility] [address] [id number] [place] [address]- 7731 Jul, [facility] [place] [facility] [address] [id number] [place] [address]- 5655 07 Jul, 2011 [facility] [place] [facility] [address] [id number] [place] [address]- 7967 06 Jul, 2011 [facility] [place] [facility] [address] [id number] [place] [address]- 2636 05 Jul, 2011 [facility] [place] [facility] [address] [id number] [place] [address]- 2470 June, [facility] [place] [facility] [address] [id number] [place] [address]- 6565 June, [facility] [place] [facility] [address] [id number] [place] [address]- 5247 June, [facility] [place] [facility] [address] [id number] [place] [address]- 1577 June, [facility] [place] [facility] [address] [id number] [place] [address]- 6844 June, [facility] [place] [facility] [address] [id number] [place] [address]- 2920 June, [facility] [place] [facility] [address] [id number] [place] [address]- 9435 June, [facility] [place] [facility] [address] [id number] [place] [address]- 7532 June, [facility] [place] [facility] [address] [id number] [place] [address]- 1360 May, [facility] [place] [facility] [address] [id number] [place] [address]- 0163 23 May, 2011 [facility] [place] [facility] [address] [id number] [place] [address]- 8257 May, [facility] [place] [facility] [address] [id number] [place] [address]- 9458 May, [facility] [address] [id number] [place] [address]- 0406 May, [facility] [place] [facility] [address] [id number] [place] [address]- 1426 May, [facility] [address] [id number] [place] [address]- 0027 May, [facility] [address] [id number] [place] [address]- 3815 Apr, [facility] [place] [facility] [address] [id number] [place] [address]- 1324 Apr, [facility] [place] [facility] [address] [id number] [place] [address]- 0949 Apr, [facility] [place] [facility] [address] [id number] [place] [address]- 3785 Apr, [facility] [place] [facility] [address] [id number] [place] [address]- 2843 Apr, [facility] [place] [facility] [address] [id number] [place] [address]- 2749 Apr, [facility] [place] [facility] [address] [id number] [place] [address]- 0212 Apr, [facility] [place] [facility] [address] [id number] [place] [address]- 5918 Mar, [facility] [place] [facility] [address] [id number] [place] [address]- 2546 Mar, [facility] [address] [id number] [place] [address]- 7496 14 Mar, 2011 [facility] [address] [id number] [place] [address]- 3666 13 Mar, 2011 [facility] [address] [id number] [place] [address]- 7166 Mar, [facility] [address] [id number] [place] [address]- 7581 Mar, [facility] [address] [id number] [place] [address]- 7676 Mar, [facility] [address] [id number] [place] [address]- 6395 Feb, [facility] [address] [id number] [place] [address]- 0905 Feb, [facility] [address] [id number] [place] [address]- 7867 Feb, [facility] [address] [id number] [place] [address]- 7880 Feb, [facility] [address] [id number] [place] [address]- 0613 Feb, [facility] [address] [id number] [place] [address]- 1669 Feb, [facility] [place] [facility] [address] [id number] [place] [address]- 3077 Feb, [facility] [place] [facility] [address] [id number] [place] [address]- 0694 Feb, [facility] [place] [facility] [address] [id number] [place] [address]- 4068 Feb, [facility] [place] [facility] [address] [id number] [place] [address]- 8586 Feb, [facility] [place] [facility] [address] [id number] [place] [address]- 3488 Jan, [facility] [place] [facility] [address] [id number] [place] [address]- 4516 Jan, [facility] [place] [facility] [address] [id number] [place] [address]- 5336 Jan, [facility] [place] [facility] [address] [id number] [place] [address]- 9196 Jan, [facility] [place] [facility] [address] [id number] [place] [address]- 6983 Jan, [facility] [place] [facility] [address] [id number] [place] [address]- 4192 Jan, [facility] [place] [facility] [address] [id number] [place] [address]- 2099 Jan, [facility] [place] [facility] [address] [id number] [place] [address]- 2763 Jan, [facility] [place] [facility] [address] [id number] [place] [address]- 7903 Jan, [facility] [place] [facility] [address] [id number] [place] [address]- 4330 Jan, [facility] [place] [facility] [address] [id number] [place] [address]- 2374 Jan, [facility] [place] [facility] [address] [id number] [place] [address]- 9027 Dec, [facility] [place] [facility] [address] [id number] [place] [address]- 5258 Dec, [facility] [place] [facility] [address] [id number] [place] [address]- 9371 Dec, [facility] [place] [facility] [address] [id number] [place] [address]- 3342 16 Dec, 2010 [facility] [place] [facility] [address] [id number] [place] [address]- 7251 14 Dec, 2010 [facility] [place] [facility] [address] [id number] [place] [address]- 7583 09 Dec, 2010 [facility] [place] [facility] [address] [id number] [place] [address]- 1863 08 Dec, 2010 [facility] [place] [facility] [address] [id number] [place] [address]- 7025 Dec, [facility] [place] [facility] [address] [id number] [place] [address]- 9792 Dec, [facility] [place] [facility] [address] [id number] [place] [address]- 2533 Nov, [facility] [place] [facility] [address] [id number] [place] [address]- 0307 Nov, [facility] [place] [facility] [address] [id number] [place] [address]- 0209 Nov, [facility] [place] [facility] [address] [id number] [place] [address]- 2147 24 Nov, 2010 [facility] [place] [facility] [address] [id number] [place] [address]- 3373 24 Nov, 2010 [facility] [place] [facility] [address] [id number] [place] [address]- 3817 Nov, [facility] [place] [facility] [address] [id number] [address]- 1816 Aug, [facility] [place] [facility] [address] [id number], [place] [address] 14 Feb, 2010 [facility] [place] [facility] [address] [id number] [place] [address] Jan, [facility] [place] [facility] [address] [id number] [place] [address] Jan, [facility] [place] [facility] [address] [id number] [place] [address] Jan, [facility] [place] [facility] [id number] [address] Jan, [facility] [id number] [address] Jan, [facility] [id number] [address] Dec, [facility] [id number] [address] Dec, [facility] [id number] [address] Dec, [facility] [id number] [place] [address] Dec, [facility] [id number] [address] Nov, [facility] [id number] [address] Nov, [facility] [id number] [address] Nov, IMMUNIZATIONS No Known Immunizations SOCIAL HISTORY Never Assessed REASON FOR VISIT med PLAN OF CARE VITAL SIGNS MEDICATIONS Unknown [...]
--- OUTSIDE RECORDS SUMMARY | 2018-01-13 20:29 | XMS REPORT ---
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 Active 256632934 Problem Hypertension I10 Active 22017089 Problem Arthritis M19.90 Active 8555057 Problem 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 Active 09257602 Problem Anxiety F41.9 Active 68730661 Problem Unspecified episodic mood disorder F39 Active 27734251 Problem Left hip pain M25.552 Active 68868898 ALLERGIES Substance Reaction Event Type Date Status Propranolol HCl chest pain, headache Drug Allergy Dec, Active Bactrim unknown Drug Allergy Dec, Active Penicillins unknown Non Drug Allergy Dec, Active ENCOUNTERS Encounter Location Date Diagnosis [facility] [address] [facility] [id number] [address] Dec, [facility] [address] [facility] [id number], [place] [address] Dec, [facility] [id number] [place] [address] 57733- 2839 Dec, Difficulty urinating R39.198 [facility] [id number] [place] [address] 88057- 4759 Dec, Left hip pain M25.552 ; Dysuria R30.0 ; Anxiety F41.9 and Acute cystitis without hematuria N30.00 [facility] [address] [address]98- [address]281 Dec, Unspecified episodic mood disorder F39 [facility] [address] 65397- 3765 Nov, Arthritis M19.90 [facility] [address] 64145- 0302 Nov, [facility] [address] 47563- 4778 Nov, Chronic hepatitis C without hepatic coma B18.2 and Screening for malignant neoplasm of breast Z12.31 [facility] [id number] [place] [address] 55729- 3020 Nov, [facility] [id number] [place] [address] 59292- 1246 Nov, Chronic hepatitis C without hepatic coma B18.2 [facility] [id number] [place] [address] 46741- 7903 Nov, [facility] [id number] [place] [address] 50932- 8419 Nov, Arthritis M19.90 and Unspecified episodic mood disorder F39 [facility] [id number] [place] [address] 04130- 2955 Oct, [facility] [id number] [place] [address] 98551- 9591 Oct, Chronic hepatitis C without hepatic coma B18.2 and Encounter for immunization Z23 [facility] [id number] [place] [address] 12698- 5423 Oct, [facility] [id number] [place] [address] 53520- 2208 Oct, Arthritis M19.90 and Unspecified episodic mood disorder F39 [facility] [id number] [place] [address] 71275- 6276 Sep, Chronic hepatitis C without hepatic coma B18.2 [facility] [id number] [place] [address] 89336- 1817 Sep, Gastroesophageal reflux disease, esophagitis presence not specified K21.9 and Other chronic pain G89.29 [facility] [id number] [place] [address] 68338- 7978 Sep, [facility] [id number] [place] [address] 32163- 4575 Sep, [facility] [id number] [place] [address] 98263- 9936 Sep, Chronic hepatitis C without hepatic coma B18.2 [facility] [id number] [place] [address] 36875- 4468 Sep, 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 [facility] [id number] [place] [address] 23082- 9933 Sep, Arthritis M19.90 [facility] [id number] [place] [address] 17602- 6208 Sep, [facility] [id number] [place] [address] 83650- 2282 Sep, Unspecified episodic mood disorder F39 [facility] [id number] [place] [address] 39524- 3641 Aug, [facility] [address] [id number] Aug, [facility] [address], [place] [address] 9736 Aug, Arthritis M19.90 [facility] [address] [address] 3[address] Aug, [facility] [address], [place] [address] 4787 Aug, Obesity (BMI 30.0-34.9) E66.9 ; Unspecified episodic mood disorder F39 and Hypertension I10 [facility] [address], [place] [address] 3544 Aug, Unspecified episodic mood disorder F39 [facility] [id number] [place] [address] 16211- 0166 Aug, [facility] [id number] [address] 3[address] Jul, Unspecified episodic mood disorder F39 [facility] [address], [place] [address] 1391 Jul, [facility] [id number] [place] [address] 21431- 4282 Jul, Arthritis M19.90 [facility] [address], [place] [address] 9[address] Jul, Left hip pain M25.552 ; Hypertension I10 ; Other obesity due to excess calories E66.09 and Body mass index (BMI) of 34.0-34.9 in adult Z68.34 [facility] [address], [place] [address] 34[address] Jul, Unspecified episodic mood disorder F39 [facility] [address], [place] [address] 7[address] June, Gastroesophageal reflux disease, esophagitis presence not specified K21.9 [facility] [address], [place] [address] 8[address] June, [facility] [address] [address] 3271 June, [facility] [address] [place] [address] 98820- 0345 June, Arthritis M19.90 [facility] [address], [place] [address] 7480 June, [facility] [id number] [place] [address] 99408- 8054 June, [facility] [address] [place] [address] 91241- 2068 June, Unspecified episodic mood disorder F39 [facility] [address] [place] [address] 28004- 3291 May, Unspecified episodic mood disorder F39 [facility] [id number] [place] [address] 31265- 6610 May, [facility] [address] [place] [address] 42452- 1901 May, Arthritis M19.90 [facility] [id number] [place] [address] 11264 -3194 May, Dysuria R30.0 ; Abscess L02.91 and Acute cystitis without hematuria N30.00 [facility] [address], [place] [address] 2144 May, 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 ; Unspecified episodic mood disorder F39 ; Combined drug dependence excluding opioids, 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 ; Anxiety F41.9 and Other psychoactive substance dependence, 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 [facility] [address] [place] [address] 16969- 3920 May, [facility] [address] [place] [address] 70087- 0259 May, 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 ; Unspecified episodic mood disorder F39 ; Combined drug dependence excluding opioids, 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 ; Other psychoactive substance dependence, 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 and Anxiety F41.9 [facility] [id number] [place] [address] 22419- 2577 May, Other chronic pain G89.29 ; Left hip pain M25.552 ; Hypertension I10 ; 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, 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 and Unspecified episodic mood disorder F39 [facility] [id number] [place] [address] 06540- 9504 Apr, [facility] [id number] [place] [address] 26156 -6979 Apr, Neck pain M54.2 ; Left hip pain M25.552 and Fall, initial encounter W19.XXXA [facility] [address] 00068- 4970 Apr, Unspecified episodic mood disorder F39 ; Combined drug dependence excluding opioids, 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 ; Anxiety F41.9 ; Other psychoactive substance dependence, 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 and 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 [facility] [id number] [place] [address] 85778- 6806 Apr, [facility] [id number] [place] [address] 98099- 7095 Apr, Arthritis M19.90 and Unspecified episodic mood disorder F39 [facility] [id number] [place] [address] 51888- 2992 Apr, Unspecified episodic mood disorder F39 [facility] [id number] [place] [address] 57798- 3025 Apr, [facility] [address] 15740- 9338 08 Apr, 2017 [facility] [id number] [place] [address] 91004- 8224 Apr, Unspecified episodic mood disorder F39 ; Combined drug dependence excluding opioids, 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 ; Anxiety F41.9 ; Other psychoactive substance dependence, 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 and 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 [facility] [address] 56288- 6906 Mar, Unspecified episodic mood disorder F39 [facility] [id number] [place] [address] 44836- 6716 Mar, Gastroesophageal reflux disease, esophagitis presence not specified K21.9 [facility] [address] 35685- 0856 Mar, Arthritis M19.90 and Unspecified episodic mood disorder F39 [facility] [address] 81877- 2716 Feb, [facility] [address] 29637- 2246 Feb, [facility] [address] 76538- 0270 Feb, [facility] [id number] [place] [address] 06489- 7476 Feb, Arthritis M19.90 [facility] [id number] [place] [address] 19371- 8916 Feb, Non-pressure chronic ulcer of right calf, 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 ; Unspecified episodic mood disorder F39 and Left hip pain M25.552 [facility] [id number] [place] [address] 44355 2546 Feb, [facility] [id number] [place] [address] 38076 2546 Feb, [facility] [id number] [place] [address] 78640 2546 Jan, Arthritis M19.90 [facility] [id number] [place] [address] 76167 2546 Jan, Left hip pain M25.552 and Non-pressure chronic ulcer of right calf, 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 [facility] [address] 46961- 7721 Jan, Chronic hepatitis C without hepatic coma B18.2 [facility] [id number] [place] [address] 58339- 8892 Jan, Encounter for immunization Z23 ; Venous insufficiency ( chronic) (peripheral) I87.2 ; Non-pressure chronic ulcer of unspecified calf limited to breakdown of skin L97.201 and Gastroesophageal reflux disease, esophagitis presence not specified K21.9 [facility] [address] 70007- 2310 Jan, [facility] [address] 58943- 7333 Jan, Chronic hepatitis C without hepatic coma B18.2 and Encounter for immunization Z23 [facility] [address] 54375- 1702 Jan, Arthritis M19.90 [facility] [address] 79163- 0285 Jan, [facility] [id number] [place] [address] 43539- 2680 Dec, [facility] [id number] [place] [address] 34238- 9675 Dec, Unspecified episodic mood disorder F39 [facility] [id number] [place] [address] 44953- 2711 Dec, Arthritis M19.90 [facility] [address] 94077- 7756 Dec, Arthritis M19.90 [facility] [id number] [place] [address] 68073- 9514 Nov, [facility] [address] 37245- 3969 Nov, [facility] [address] [place] [address] 12263- 8434 Nov, Other psychoactive substance dependence, 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 ; 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, 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 and Chronic hepatitis C without hepatic coma B18.2 [facility] [id number] [place] [address] 57437- 7024 Nov, Arthritis M19.90 [facility] [id number] [place] [address] 40038 -9092 Oct, Partial thickness burn of abdomen, initial encounter T21.22XA [facility] [id number] [place] [address] 09733- 3025 Oct, [facility] [id number] [place] [address] 77421- 6080 Sep, Arthritis M19.90 [facility] [id number] [place] [address] 17944- 0509 Sep, [facility] [id number] [place] [address] 15864- 1962 Sep, [facility] [id number] [place] [address] 12067- 6237 Sep, Unspecified episodic mood disorder F39 ; Chronic hepatitis C without hepatic coma B18.2 and Left hip pain M25.552 [facility] [id number] [place] [address] 86976- 7747 Sep, Arthritis M19.90 and Left hip pain M25.552 [facility] [id number] [place] [address] 73917- 9126 Aug, [facility] [id number] [place] [address] 75304- 7731 Aug, [facility] [id number] [place] [address] 49442- 3886 Aug, Chronic hepatitis C without hepatic coma B18.2 [facility] [address], [place] [address]- 2373 Aug, [facility] [id number] [place] [address] 47498- 0496 Aug, Chronic hepatitis C without hepatic coma B18.2 [facility] [address], [place] [address]- 5252 Aug, 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, 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 [facility] [address], [place] [address]- 5093 Aug, [facility] [id number] [place] [address] 84432- 6679 Aug, Chronic hepatitis C without hepatic coma B18.2 and Hypertension I10 [facility] [id number] [place] [address] 26944- 6685 Jul, [facility] [id number] [place] [address] 65594- 7966 June, [facility] [id number] [place] [address] 66796- 7938 Apr, Fibromyalgia M79.7 ; Left hip pain M25.552 and Decubitus ulcer of sacral region, stage 1 L89.151 [facility] [address], [place] [address]- 4907 Apr, [facility] [id number] [place] [address] 70432- 8742 Apr, [facility] [id number] [place] [address] 12691- 6273 Feb, [facility] [id number] [place] [address] 88039- 9402 Dec, Anxiety F41.9 ; Combined drug dependence excluding opioids, 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 and Unspecified episodic mood disorder F39 [facility] [address], [place] [address]- 7109 Dec, [facility] [address] [place] [address] 80216- 2361 Nov, [facility] [id number] [place] [address] 36932- 4890 Nov, [facility] [address] [place] [address] 13177- 7043 Nov, 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 and Anxiety F41.9 [facility] [id number] [place] [address] 86541- 9498 Oct, [facility] [id number] [place] [address] 83888 -6632 14 Oct, 2015 Open wound of left thigh, initial encounter S71.102A [facility] [id number] [place] [address] 54687- 7607 Oct, [facility] [id number] [place] [address] 76217- 3057 Sep, Unspecified episodic mood disorder F39 ; Other disorder of impulse control 312.39 ; Combined drug dependence excluding opioids, 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 and Anxiety F41.9 [facility] [address] [place] [address] 67291- 9452 Sep, Other disorder of impulse control 312.39 ; Combined drug dependence excluding opioids, 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 ; Anxiety F41.9 and Unspecified episodic mood disorder F39 [facility] [address] [place] [address] 40014- 7187 Sep, Other chronic pain G89.29 [facility] [id number] [place] [address] 88928- 7234 Sep, [facility] [address] [place] [address] 28894- 2209 Sep, [facility] [id number] [place] [address] 73797- 2179 Aug, [facility] [address], [place] [address]- 4692 Aug, [facility] [id number] [place] [address] 42052- 5860 Aug, [facility] [address] [place] [address] 75432- 6994 Jul, [facility] [id number] [place] [address] 76319- 8226 Jul, [facility] [id number] [place] [address] 53380- 4252 Jul, [facility] [id number] [place] [address] 44800- 7390 Jul, Arthritis M19.90 ; Chronic hepatitis C without hepatic coma B18.2 and Left hip pain M25.552 [facility] [id number] [place] [address] 81305- 7763 Jul, Left knee pain M25.562 [facility] [id number] [place] [address] 94807- 0839 Jul, Combined drug dependence excluding opioids, 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 ; Anxiety F41.9 ; Other disorder of impulse control 312.39 and Unspecified episodic mood disorder F39 [facility] [address] [place] [address] 84633- 6074 Jul, Left knee pain M25.562 [facility] [address] [place] [address] 43200- 0124 Jul, Left knee pain M25.562 and Left hip pain M25.552 [facility] [id number] [place] [address] 67877- 0074 Jul, [facility] [id number] [place] [address] 56572- 0278 June, [facility] [address], [place] [address]- 9975 June, Combinations of drug dependence excluding opioid type drug, 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 ; Other disorder of impulse control 312.39 ; Unspecified episodic mood disorder F39 and Anxiety F41.9 [facility] [id number] [place] [address] 56358- 7613 June, Other fatigue R53.83 ; Headache R51 and Left knee pain M25.562 [facility] [id number] [place] [address] 12131- 3995 June, Unspecified episodic mood disorder F39 ; Combinations of drug dependence excluding opioid type drug, 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 ; Other disorder of impulse control 312.39 and Anxiety F41.9 [facility] [id number] [place] [address] 78532- 4924 June, Anxiety F41.9 [facility] [id number] [place] [address] 61238- 7658 June, Pain in left knee M25.562 [facility] [id number] [place] [address] 61156- 7733 June, Anxiety F41.9 and Combinations of drug dependence excluding opioid type drug, 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 [facility] [address] [place] [address] 65191- 5641 June, Unspecified episodic mood disorder 296.90 ; Combinations of drug dependence excluding opioid type drug, 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 and Other disorder of impulse control 312.39 [facility] [address] [place] [address] 99521- 2738 June, Anxiety F41.9 and Unspecified episodic mood disorder 296.90 [place] [id number] [place] [address] 30061- 9276 May, Arthritis M19.90 [facility] [id number] [place] [address] 65073- 3323 May, Arthritis M19.90 [facility] [id number], [place] [address] 18 May, 2015 Anxiety F41.9 ; Combinations of drug dependence excluding opioid type drug, 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 and Other disorder of impulse control 312.39 [place] [id number], [place] [address] 18 May, 2015 Left knee pain M25.562 [place] [id number] [place] [address] 14 May, 2015 Arthritis M19.90 [place] [id number] [place] [address]- [address] May, [place] [id number] [place] [address] May, Anxiety F41.9 ; Unspecified episodic mood disorder 296.90 ; Combinations of drug dependence excluding opioid type drug, 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 and Other disorder of impulse control 312.39 [place] [id number] [place] [address] 90368- 7777 May, Left knee pain M25.562 [place] [address] [place] [id number] [place] [address] 64806- 6388 May, Left knee pain M25.562 ; Combinations of drug dependence excluding opioid type drug, 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 ; Other disorder of impulse control 312.39 ; Fibromyalgia M79.7 ; Hypertension I10 ; Unspecified episodic mood disorder 296.90 and Left hip pain M25.552 [place] [address], [place] [address] 1117 May, Unspecified episodic mood disorder 296.90 ; Other disorder of impulse control 312.39 ; Combinations of drug dependence excluding opioid type drug, 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 and Anxiety F41.9 [place] [address], [place] [address] May, Left knee pain M25.562 ; Combinations of drug dependence excluding opioid type drug, 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 ; Other disorder of impulse control 312.39 ; Fibromyalgia M79.7 ; Hypertension I10 ; Unspecified episodic mood disorder 296.90 and Left hip pain M25.552 [place] [address] [place] [id number] [place] [address] 49850- 5794 May, Anxiety F41.9 ; Unspecified episodic mood disorder 296.90 ; Other disorder of impulse control 312.39 and Combinations of drug dependence excluding opioid type drug, 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 [place] [address] [place] [id number] [place] [address] 95346- 2312 30 Apr, 2015 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 and 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, implants and grafts, initial encounter T84.82XA [place] [address] [place] [address] [id number] [place] [address] 52328- 4514 Apr, Anxiety F41.9 ; Unspecified episodic mood disorder 296.90 ; Combinations of drug dependence excluding opioid type drug, 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 and Other disorder of impulse control 312.39 [place] [address] [place] [id number] [place] [address] 96974- 8954 Apr, Arthritis M19.90 [place] [address] [place] [address] [id number] [place] [address] 05967- 7105 Apr, Anxiety F41.9 ; Unspecified episodic mood disorder 296.90 ; Combinations of drug dependence excluding opioid type drug, 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 and Other disorder of impulse control 312.39 [place] [address] [place] [id number] [place] [address] 48831- 5726 17 Apr, 2015 Arthritis M19.90 [place] [address] [place] [id number] [place] [address] 32535- 4515 Apr, [place] [address] [place] [id number] [place] [address] 95786- 5406 Apr, [place] [address] [place] [address] [id number] [place] [address] 70748- 2681 14 Apr, 2015 Unspecified episodic mood disorder 296.90 ; Combinations of drug dependence excluding opioid type drug, 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 ; Other disorder of impulse control 312.39 and Anxiety F41.9 [facility] [address], [place] [address] Apr, Left knee pain M25.562 [facility] [address], [place] [address]- 2688 Apr, [facility] [address] [id number] [place] [address] 21589- 3679 Mar, Unspecified episodic mood disorder 296.90 ; Anxiety F41.9 ; Other disorder of impulse control 312.39 and Combinations of drug dependence excluding opioid type drug, 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 [facility] [address] [address] [id number] [place] [address] 55893- 1436 25 Mar, 2015 Hyperpigmentation L81.9 [facility] [address] [place] [address] [id number] [place] [address] 75595- 1282 Mar, Arthritis M19.90 and Anxiety F41.9 [facility] [address] [place] [address] [id number] [place] [address] 82209- 5529 Mar, Unspecified episodic mood disorder F39 ; Combined drug dependence excluding opioids, 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 ; 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 and Anxiety F41.9 [facility] [address] [place] [address] 59368- 6234 12 Mar, 2015 Well woman exam Z01.419 ; Other fatigue R53.83 ; Hot flashes N95.1 ; Depression, unspecified depression type F32.9 and Body mass index (BMI) of 23.0-23.9 in adult Z68.23 [facility] [id number] [place] [address] 60481- 5086 11 Mar, 2015 Unspecified episodic mood disorder 296.90 ; Other disorder of impulse control 312.39 and Anxiety F41.9 [facility] [address], [place] [address] 11 Mar, 2015 Well woman exam Z01.419 [...] of breast Z12.39 and Limited mobility Z74.09 [place] [address] 80253- 7278 Mar, [place] [address] 85506- 0004 Mar, [place] [address] 93688- 7915 Mar, [place] [address] 78262- 2370 Mar, Other specified complication of internal orthopedic prosthetic devices, implants and grafts, initial encounter T84.89XA ; Fibromyalgia M79.7 ; Hypertension I10 ; Anemia D64.9 ; Insomnia G47.00 ; Anxiety F41.9 ; Arthritis M19.90 and Migraine G43.909 [place] [address] 38211- 8456 Mar, [place] [address] 32190- 6909 Feb, [address] [address]20- 4854 Feb, Arthritis M19.90 and Anxiety F41.9 [place] [address] 77720- 4911 Feb, [address] [id number] [address] 5698 Feb, [facility] [id number] [place] [address] 02131- 9856 Feb, [facility] [address], [place] [address]- 4530 Feb, [facility] [address] [place] [id number] [place] [address] 03658- 2569 Feb, Anxiety F41.9 [facility] [address] [place] [address] [id number] [place] [address] 66403- 5838 Feb, [facility] [address] [place] [address] [id number] [place] [address] 32166- 1823 Feb, [facility] [address], [place] [address]- 6566 Feb, 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 and Fibromyalgia M79.7 [facility] [address], [place] [address]- 6524 Feb, [facility] [address] [place] [address] [id number] [place] [address] 93375- 4040 Jan, [facility] [address], [place] [address]- 4746 Jan, [facility] [address], [place] [address]- 8722 Jan, [facility] [address], [place] [address]- 5321 24 Jan, 2015 [facility] [address], [place] [address]- 8786 16 Jan, 2015 [facility] [address], [place] [address]- 5285 08 Jan, 2015 [facility] [address], [place] [address]- 0353 Jan, [facility] [address] [address]- 1249 Jan, [facility] [id number] [place] [address] 57996- 0355 Dec, [facility] [address], [place] [address]- 8909 Dec, Left knee pain M25.562 [facility] [address] [place] [id number] [place] [address] 14250- 0707 Dec, Left knee pain M25.562 [facility] [address] [place] [id number] [place] [address] 15542- 3522 Dec, Fibromyalgia M79.7 ; Hypertension I10 and Arthritis M19.90 [facility] [address] [place] [id number] [place] [address] 79744- 5350 Dec, [facility] [address] [place] [id number] [place] [address] 36045- 1652 Dec, [facility] [id number] [place] [address] 98144- 2209 Dec, [facility] [address] [place] [address] [id number] [place] [address] 63471- 8064 Dec, [facility] [address], [place] [address]- 1732 Nov, [facility] [address] [place] [id number] [place] [address] 97774- 5712 Nov, [facility] [address], [place] [address]- 5137 Nov, [facility] [address] [place] [address] [id number] [place] [address] 43958- 6924 Nov, Hypertension I10 [facility] [address] [place] [id number] [address]- 4705 Oct, [facility] [address] [place] [address] [id number] [place] [address] 26058- 1776 Oct, [facility] [address] [id number] [place] [address]- 2945 Oct, [facility] [address] [id number], [place] [address]- 7619 Oct, [facility] [address] [facility] [id number] [place] [address]- 7671 Oct, [facility] [address] [facility] [id number] 6231 Sep, [facility] [address] [id number] [place] [address]- 7500 Sep, [facility] [address] [facility] [id number], [place] [address]- 0108 Sep, Hip pain associated with recalled total hip arthroplasty hardware 996.77 [facility] [id number], [place] [address]- 7885 Sep, [facility] [address] [facility] [id number], [place] [address]- 7299 Sep, [facility] [id number] [address]- 8614 Sep, [facility] [address] [facility] [id number], [place] [address]- 4502 Aug, [facility] [place] [facility] [address] [facility] [id number], [place] [address]- 6551 Jul, [facility] [place] [facility] [address] [id number], [place] [address]- 4393 June, [facility] [place] [facility] [address] [facility] [id number], [place] [address]- 0729 June, [facility] [place] [facility] [address] [facility] [id number], [place] [address]- 0523 June, [facility] [address] [facility] [id number][place] 5089 June, [facility] [place] [facility] [address] [id number] [place] [address]- 6142 June, [facility] [place] [facility] [address] [id number] [place] [address]- 2676 June, [facility] [place] [facility] [address] [id number] [place] [address]- 9786 May, [facility] [place] [facility] [address] [id number] [place] [address]- 1206 May, [facility] [place] [facility] [address] [id number] [place] [address]- 0799 May, [facility] [place] [facility] [address] [id number] [place] [address]- 7206 Apr, [facility] [place] [facility] [address] [id number] [place] [address]- 8286 Apr, [facility] [place] [facility] [address] [id number] [place] [address]- 2274 Apr, [facility] [place] [facility] [address] [id number] [place] [address]- 7948 Apr, [facility] [place] [facility] [address] [id number] [place] [address]- 4031 Apr, [facility] [place] [facility] [address] [id number] [place] [address]- 9095 Apr, [facility] [place] [facility] [address] [id number], [place] [address]- 0886 Apr, [facility] [place] [facility] [address] [id number] [place] [address]- 1743 Apr, [facility] [place] [facility] [address] [id number] [place] [address]- 6586 10 Apr, 2014 [facility] [place] [facility] [address] [id number], [place] [address]- 4406 05 Apr, 2014 [facility] [place] [facility] [address] [id number], [place] [address]- 3911 Apr, [facility] [place] [facility] [address] [id number] [place] [address]- 5408 Mar, [facility] [place] [facility] [address] [id number] [place] [address]- 1786 Mar, 2014 [facility] [place] [facility] [address] [id number] [place] [address]- 5716 Mar, 2014 [facility] [place] [facility] [address] [id number] [place] [address]- 7568 Mar, 2014 [facility] [place] [facility] [address] [id number] [place] [address]- 1241 Mar, [facility] [place] [facility] [address] [id number] [place] [address]- 0779 Mar, [facility] [place] [facility] [address] [facility] [id number] [place] [address]- 6355 Feb, [facility] [place] [facility] [address] [id number] [place] [address]- 0802 Feb, [facility] [place] [facility] [address] [id number] [place] [address]- 0578 Feb, [facility] [place] [facility] [address] [facility] [id number] [place] [address]- 9477 Feb, [facility] [place] [facility] [address] [id number] [place] [address]- 3213 Jan, [facility] [place] [facility] [address] [id number] [place] [address]- 3615 Jan, [facility] [place] [facility] [address] [id number] [place] [address]- 5597 Jan, [facility] [place] [facility] [address] [id number] [place] 0702 Jan, [facility] [place] [facility] [address] [id number] [place] [address]- 5729 Dec, [facility] [place] [facility] [address] [id number] [place] [address]- 5313 Dec, [facility] [place] [facility] [address] [id number] [place] [address]- 8545 Dec, [facility] [place] [facility] [address] [id number] [place] [address]- 4026 Dec, [facility] [place] [facility] [address] [id number] [place] [address]- 8826 Dec, [facility] [place] [facility] [address] [id number] [place] [address]- 0094 Dec, [facility] [place] [facility] [address] [id number] [place] [address]- 1251 Dec, [facility] [place] [facility] [address] [id number] [place] [address]- 6555 Dec, [facility] [place] [facility] [address] [id number] [place] [address]- 7372 Dec, [facility] [place] [facility] [address] [id number] [place] [address]- 5659 Dec, [facility] [place] [facility] [address] [id number] [place] [address]- 9335 Dec, [facility] [place] [facility] [address] [id number] [place] [address]- 3065 Nov, [facility] [place] [facility] [address] [id number], [place] [address]- 3690 Nov, [facility] [place] [facility] [address] [id number] [place] [address]- 7769 Nov, [facility] [place] [facility] [address] [id number] [place] [address]- 3517 Nov, [facility] [place] [facility] [address] [id number] [place] [address]- 7898 Nov, [facility] [place] [facility] [address] [id number], [place] [address]- 3114 15 Nov, 2013 [facility] [place] [facility] [address] [id number] [place] [address]- 6725 15 Nov, 2013 [facility] [place] [facility] [address] [id number] [place] [address]- 7464 15 Nov, 2013 [facility] [place] [facility] [address] [id number] [place] [address]- 9360 15 Nov, 2013 [facility] [place] [facility] [address] [id number], [place] [address]- 3278 14 Nov, 2013 [facility] [place] [facility] [address] [id number] [place] [address]- 3278 14 Nov, 2013 [facility] [place] [facility] [address] [id number] [place] [address]- 5407 14 Nov, 2013 [facility] [place] [facility] [address] [id number], [place] [address]- 4463 14 Nov, 2013 [facility] [place] [facility] [address] [id number], [place] [address]- 0888 13 Nov, 2013 [facility] [place] [facility] [address] [id number], [place] [address]- 4313 13 Nov, 2013 [facility] [place] [facility] [address] [id number], [place] [address]- 9430 11 Nov, 2013 [facility] [place] [facility] [address] [id number], [place] [address]- 4074 11 Nov, 2013 [facility] [place] [facility] [address] [id number], [place] [address]- 9585 07 Nov, 2013 [facility] [place] [facility] [address] [id number], [place] [address]- 5504 07 Nov, 2013 [facility] [place] [facility] [address] [id number], [place] [address]- 6706 07 Nov, 2013 [facility] [place] [facility] [address] [id number], [place] [address]- 8420 07 Nov, 2013 [facility] [place] [facility] [address] [id number] [place] [address]- 3838 30 Sep, 2013 [facility] [place] [facility] [address] [id number] [place] [address] 2546 30 Sep, 2013 [facility] [place] [facility] [address] [id number] [place] [address]- 2546 26 Oct, 2013 [facility] [place] [facility] [address] [id number] [place] [address] 2546 26 Oct, 2013 [facility] [place] [facility] [address] [id number] [place] [address]- 2541 22 Oct, 2013 [facility] [place] [facility] [address] [id number] [place] [address]- 3860 22 Oct, 2013 [facility] [place] [facility] [address] [id number] [place] [address]- 8946 18 Oct, 2013 [facility] [place] [facility] [address] [id number] [place] [address]- 5597 18 Oct, 2013 [facility] [place] [facility] [address] [id number] [place] [address]- 2541 18 Oct, 2013 [facility] [place] [facility] [address] [id number] [place] [address]- 2545 18 Oct, 2013 [facility] [place] [facility] [address] [id number] [place] [address]- 5947 12 Oct, 2013 [facility] [place] [facility] [address] [id number] [place] [address]- 2549 12 Oct, 2013 [facility] [place] [facility] [address] [id number] [place] [address]- 2545 Oct, 2013 [facility] [place] [facility] [address] [id number] [place] [address] 2542 Oct, 2013 [facility] [place] [facility] [address] [id number] [place] [address]- 2541 Sep, [facility] [place] [facility] [address] [id number] [place] [address]- 6636 Sep, [facility] [place] [facility] [address] [id number] [place] [address]- 3082 Sep, [facility] [place] [facility] [address] [id number] [place] [address]- 2819 Sep, [facility] [place] [facility] [address] [id number] [place] [address]- 5488 Sep, [facility] [place] [facility] [address] [id number] [place] [address]- 6983 Sep, [facility] [place] [facility] [address] [id number] [place] [address]- 5064 Sep, [facility] [place] [facility] [address] [id number] [place] [address]- 5437 Sep, [facility] [place] [facility] [address] [id number] [place] [address]- 3724 Sep, [facility] [place] [facility] [address] [id number] [place] [address]- 6923 Sep, [facility] [place] [facility] [address] [id number] [place] [address]- 2826 Sep, [facility] [place] [facility] [address] [id number] [place] [address]- 5976 Sep, [facility] [place] [facility] [address] [id number] [place] [address]- 6482 Sep, [facility] [place] [facility] [address] [id number] [place] [address]- 4931 Sep, [facility] [place] [facility] [address] [id number] [place] [address]- 9475 Sep, [facility] [place] [facility] [address] [id number] [place] [address]- 1807 Sep, [facility] [place] [facility] [address] [id number] [place] [address]- 5719 Sep, [facility] [place] [facility] [address] [id number] [place] [address]- 2671 Sep, [facility] [place] [facility] [address] [id number] [place] [address]- 9561 Aug, [facility] [place] [facility] [address] [id number] [place] [address]- 6653 Aug, [facility] [place] [facility] [address] [id number] [place] [address] Aug, [facility] [place] [facility] [address] [id number] [place] [address] Aug, [facility] [place] [facility] [address] [id number] [place] [address] Aug, [facility] [place] [facility] [address] [id number] [place] [address] Aug, [facility] [place] [facility] [address] [id number] [place] [address] Jul, [facility] [place] [facility] [address] [id number] [place] [address] Jul, [facility] [place] [facility] [address] [id number] [place] [address] Jul, [facility] [place] [facility] [address] [id number] [place] [address] Jul, [facility] [place] [facility] [address] [id number] [place] [address] June, [facility] [place] [facility] [address] [id number] [place] [address] June, [facility] [place] [facility] [address] [id number] [place] [address] June, [facility] [place] [facility] [address] [id number] [place] [address] June, [facility] [place] [facility] [address] [id number] [place] [address] June, [facility] [place] [facility] [address] [id number] [place] [address] June, [facility] [place] [facility] [address] [id number] [place] [address] June, [facility] [place] [facility] [address] [id number] [place] [address] 29 May, 2013 [facility] [place] [facility] [address] [id number] [place] [address] May, [facility] [place] [facility] [address] [id number] [place] [address] May, [facility] [place] [facility] [address] [id number] [place] [address] May, [facility] [place] [facility] [address] [id number] [place] [address] May, [facility] [place] [facility] [address] [id number] [place] [address] May, [facility] [place] [facility] [address] [id number] [place] [address] 31 Apr, 2013 [facility] [place] [facility] [address] [id number] [place] [address] 31 Apr, 2013 [facility] [place] [facility] [address] [id number] [place] [address]- [address] 28 Apr, 2013 [facility] [place] [facility] [address] [id number] [place] [address] 28 Apr, 2013 [facility] [place] [facility] [address] [id number] [place] [address] 14 Apr, 2013 [facility] [place] [facility] [address] [id number] [place] [address]- [address] 14 Apr, 2013 [facility] [place] [facility] [address] [id number] [place] [address] 12 Apr, 2013 [facility] [place] [facility] [address] [id number] [place] [address] Apr, [facility] [place] [facility] [address] [id number] [place] [address]- [address] Apr, [facility] [place] [facility] [address] [id number] [place] [address]- [address] Apr, [facility] [place] [facility] [address] [id number] [place] [address] Apr, [facility] [place] [facility] [address] [id number] [place] [address] Apr, [facility] [place] [facility] [address] [id number] [place] [address] Apr, [facility] [place] [facility] [address] [id number] [place] [address] Apr, [facility] [place] [facility] [address] [id number] [place] [address] Mar, [facility] [place] [facility] [address] [id number] [place] [address] Mar, [facility] [place] [facility] [address] [id number] [place] [address] Mar, [facility] [place] [facility] [address] [id number] [place] [address] Feb, [facility] [place] [facility] [address] [id number] [place] [address] Feb, [facility] [place] [facility] [address] [id number] [place] [address] Feb, [facility] [place] [facility] [address] [id number] [place] [address] Feb, [facility] [place] [facility] [address] [id number] [place] [address] Feb, [facility] [place] [facility] [address] [id number] [place] [address] Feb, [facility] [place] [facility] [address] [id number] [place] [address] 13 Feb, 2013 [facility] [address] [id number] [place] [address] Feb, [facility] [address] [id number] [place] [address] Feb, [facility] [address] [id number] [place] [address] 7160 Feb, [facility] [address] [id number] [place] [address] 9170 Jan, [facility] [address] [id number] [place] [address] 8327 Jan, [facility] [address] [id number] [place] [address] 1514 Jan, [facility] [address] [id number] [place] [address] 7193 Jan, [facility] [address] [id number] [place] [address] 8977 Jan, [facility] [address] [id number] [place] [address]- 6755 Jan, [facility] [address] [id number] [place] [address]- 9055 Jan, [facility] [address] [id number] [place] [address]- 3644 Jan, [facility] [address] [id number] [place] [address]- 2307 Jan, [facility] [address] [id number] [place] [address]- 1561 Jan, [facility] [address] [id number] [place] [address]- 0146 Jan, [facility] [address] [id number] [place] [address]- 7216 Jan, [facility] [address] [id number] [place] [address] 16 Jan, 2013 [facility] [place] [facility] [address] [id number] [place] [address]- 0937 Jan, [facility] [place] [facility] [address] [id number] [place] [address] Jan, [facility] [place] [facility] [address] [id number] [place] [address]- 5343 Jan, [facility] [place] [facility] [address] [id number] [place] [address]- 5155 Jan, [facility] [place] [facility] [address] [id number] [place] [address]- 1637 Jan, [facility] [place] [facility] [address] [id number] [place] [address]- 4354 Jan, [facility] [place] [facility] [address] [id number] [place] [address]- 3470 Jan, [facility] [place] [facility] [address] [id number] [place] [address]- 3826 Jan, [facility] [place] [facility] [address] [facility] [id number], [place] [address]- 1106 Dec, [facility] [place] [facility] [address] [id number], [place] [address] 6152 Dec, [facility] [place] [facility] [address] [id number], [place] [address] 5650 Dec, [facility] [place] [facility] [address] [id number], [place] [address]- 7726 Dec, [facility] [place] [facility] [address] [id number], [place] [address]- 4575 Dec, [facility] [place] [facility] [address] [id number], [place] [address]- 1494 Dec, [facility] [place] [facility] [address] [id number], [place] [address]- 1355 Dec, [facility] [place] [facility] [address] [id number] [place] [address]- 6892 Dec, [facility] [place] [facility] [address] [id number], [place] [address]- 3384 Dec, [facility] [place] [facility] [address] [id number] [place] [address]- 7944 Dec, [facility] [place] [facility] [address] [id number], [place] [address]- 9970 Nov, [facility] [place] [facility] [address] [id number] [place] [address]- 9696 Nov, [facility] [place] [facility] [address] [id number] [place] [address]- 8126 Nov, [facility] [place] [facility] [address] [id number], [place] [address]- 9194 Nov, [facility] [place] [facility] [address] [id number], [place] [address]- 9429 Nov, [facility] [place] [facility] [address] [id number], [place] [address]- 9436 Nov, [facility] [place] [facility] [address] [facility] [id number], [place] [address]- 5308 Nov, [facility] [place] [facility] [address] [id number], [place] [address]- 5924 Nov, [facility] [place] [facility] [address] [id number], [place] [address]- 5645 10 Nov, 2012 [facility] [place] [facility] [address] [id number], [place] [address]- 3239 Nov, [facility] [place] [facility] [address] [facility] [id number], [place] [address]- 3864 Oct, [facility] [place] [facility] [address] [id number], [place] [address]- 9935 Oct, [facility] [place] [facility] [address] [id number] [place] [address] 2542 Oct, [facility] [place] [facility] [address] [id number] [place] [address]- 5566 Oct, [facility] [place] [facility] [address] [id number] [place] [address]- 2546 Oct, [facility] [place] [facility] [address] [id number] [place] [address]- 2546 Sep, [facility] [place] [facility] [address] [id number] [place] [address]- 3851 Sep, [facility] [place] [facility] [address] [id number] [place] [address]- 7311 Aug, [facility] [place] [facility] [address] [id number] [place] [address]- 5047 Aug, [facility] [place] [facility] [address] [id number] [place] [address]- 3929 Aug, [facility] [place] [facility] [address] [id number] [place] [address]- 9912 Aug, [facility] [place] [facility] [address] [id number] [place] [address]- 7496 Aug, [facility] [place] [facility] [address] [id number] [place] [address]- 5264 Aug, [facility] [place] [facility] [address] [id number] [place] [address]- 2547 Aug, [facility] [place] [facility] [address] [id number] [place] [address]- 2545 Jul, [facility] [place] [facility] [address] [id number] [place] [address]- 3152 Jul, [facility] [place] [facility] [address] [id number] [place] [address]- 0284 June, [facility] [place] [facility] [address] [id number] [place] [address]- 7127 June, [facility] [address] [id number] [place] [address]- 9859 June, [facility] [address] [id number] [place] [address]- 2770 June, [facility] [address] [id number] [place] [address] June, [facility] [address] [id number] [place] [address]- 1146 June, [facility] [address] [id number] [place] [address]- 2867 June, [facility] [address] [id number] [place] [address]- 9448 June, [facility] [address] [id number] [place] [address]- 5056 June, [facility] [address] [id number] [place] [address]- 1116 June, [facility] [address] [id number] [place] [address]- 5505 June, [facility] [address] [id number] [place] [address]- 2809 May, [facility] [address] [id number] [place] [address]- 0923 May, [facility] [place] [facility] [address] [id number] [place] [address]- 0109 May, [facility] [place] [facility] [address] [id number] [place] [address]- 2608 May, [facility] [place] [facility] [address] [id number] [place] [address]- 6479 Apr, [facility] [place] [facility] [address] [id number] [place] [address]- 7383 Apr, [facility] [address] [id number] [place] [address]- 9953 Apr, [facility] [address] [id number] [place] [address]- 2676 Mar, [facility] [address] [id number] [place] [address]- 6216 Mar, [facility] [address] [id number] [place] [address]- 9459 29 Feb, 2012 [facility] [address] [id number] [place] [address]- 5046 Feb, [facility] [address] [id number] [place] [address]- 5482 Feb, [facility] [address] [id number] [place] [address]- 5167 Feb, [facility] [address] [id number] [place] [address]- 7267 Feb, [facility] [address] [id number] [place] [address]- 8126 14 Feb, 2012 [facility] [address] [id number] [place] [address]- 0519 Feb, [facility] [address] [id number] [place] [address]- 8310 31 Jan, 2012 [facility] [address] [id number] [place] [address]- 2233 31 Jan, 2012 [facility] [address] [id number] [place] [address]- 8264 28 Jan, 2012 [facility] [address] [id number] [place] [address]- 5427 17 Jan, 2012 [facility] [address] [id number] [place] [address]- 1956 17 Jan, 2012 [facility] [address] [id number] [place] [address]- 4245 Jan, [facility] [place] [facility] [address] [id number] [place] [address]- 5199 Jan, [facility] [place] [facility] [address] [id number] [place] [address]- 2191 Jan, [facility] [place] [facility] [address] [id number] [place] [address]- 5257 Jan, [facility] [place] [facility] [address] [id number] [place] [address]- 0491 Jan, [facility] [place] [facility] [address] [id number] [place] Jan, [facility] [place] [facility] [address] [id number] [place] [address]- 5725 Dec, [facility] [place] [facility] [address] [id number] [place] [address]- 8832 Dec, [facility] [place] [facility] [address] [id number] [place] [address]- 5094 Dec, [facility] [place] [facility] [address] [id number] [place] [address]- 0229 Dec, [facility] [place] [facility] [address] [id number] [place] [address]- 6275 Nov, [facility] [place] [facility] [address] [id number] [place] [address]- 0419 Nov, [facility] [place] [facility] [address] [id number], [place] [address]- 6088 Nov, [facility] [place] [facility] [address] [id number] [place] [address]- 2833 27 Oct, 2011 [facility] [place] [facility] [address] [id number] [place] [address]- 9868 24 Oct, 2011 [facility] [place] [facility] [address] [id number] [place] 7130 Oct, [facility] [place] [facility] [address] [id number], [place] [address]- 3277 10 Oct, 2011 [facility] [place] [facility] [address] [id number] [place] [address]- 1256 07 Oct, 2011 [facility] [place] [facility] [address] [id number] [place] [address]- 5476 04 Oct, 2011 [facility] [place] [facility] [address] [id number] [place] [address]- 4406 Oct, [facility] [place] [facility] [address] [id number] [place] [address]- 9183 Sep, [facility] [place] [facility] [address] [id number] [place] [address]- 3225 Sep, [facility] [place] [facility] [address] [id number] [place] [address]- 9851 Sep, [facility] [place] [facility] [address] [id number] [place] [address]- 8270 Sep, [facility] [place] [facility] [address] [id number] [place] [address]- 0620 Sep, [facility] [place] [facility] [address] [id number] [place] [address]- 1832 Aug, [facility] [place] [facility] [address] [id number] [place] [address]- 8078 Aug, [facility] [place] [facility] [address] [id number] [place] [address]- 0756 17 Aug, 2011 [facility] [place] [facility] [address] [id number] [place] [address]- 5131 16 Aug, 2011 [facility] [place] [facility] [address] [id number] [place] [address]- 6463 Aug, [facility] [place] [facility] [address] [id number] [place] [address]- 1815 Aug, [facility] [place] [facility] [address] [id number] [place] [address]- 1004 Aug, [facility] [place] [facility] [address] [id number] [place] [address]- 3170 28 Jul, 2011 [facility] [place] [facility] [address] [id number] [place] [address]- 4951 26 Jul, 2011 [facility] [place] [facility] [address] [id number] [place] [address]- 7266 22 Jul, 2011 [facility] [place] [facility] [address] [id number] [place] [address]- 4577 Jul, [facility] [place] [facility] [address] [id number] [place] [address]- 8592 12 Jul, 2011 [facility] [place] [facility] [address] [id number] [place] [address]- 9396 Jul, [facility] [place] [facility] [address] [id number] [place] [address]- 5883 07 Jul, 2011 [facility] [place] [facility] [address] [id number] [place] [address]- 0226 06 Jul, 2011 [facility] [place] [facility] [address] [id number] [place] [address]- 0079 05 Jul, 2011 [facility] [place] [facility] [address] [id number] [place] [address]- 9678 June, [facility] [place] [facility] [address] [id number] [place] [address]- 1195 June, [facility] [place] [facility] [address] [id number] [place] [address]- 0011 June, [facility] [place] [facility] [address] [id number] [place] [address]- 2968 June, [facility] [place] [facility] [address] [id number] [place] [address]- 8937 June, [facility] [place] [facility] [address] [id number] [place] [address]- 0836 June, [facility] [place] [facility] [address] [id number] [place] [address]- 7728 June, [facility] [address] [id number] [place] [address]- 1454 June, [facility] [place] [facility] [address] [id number] [place] [address]- 0551 May, [facility] [place] [facility] [address] [id number] [place] [address]- 7396 May, [facility] [place] [facility] [address] [id number] [place] [address]- 1056 May, [facility] [place] [facility] [address] [id number] [place] [address]- 2872 May, [facility] [place] [facility] [address] [id number] [place] [address]- 1517 May, [facility] [place] [facility] [address] [id number] [place] [address]- 2483 May, [facility] [place] [facility] [address] [id number] [place] [address]- 5115 May, [facility] [place] [facility] [address] [id number] [place] [address]- 2861 Apr, [facility] [place] [facility] [address] [id number] [place] [address]- 2638 Apr, [facility] [place] [facility] [address] [id number] [place] [address]- 5037 Apr, [facility] [place] [facility] [address] [id number], [place] [address]- 8692 Apr, [facility] [place] [facility] [address] [id number] [place] [address]- 4261 Apr, [facility] [place] [facility] [address] [id number] [place] [address]- 3994 Apr, [facility] [place] [facility] [address] [id number] [place] [address]- 3848 Apr, [facility] [place] [facility] [address] [id number] [place] [address]- 6086 20 Mar, 2011 [facility] [address] [id number] [place] [address]- 2446 20 Mar, 2011 [facility] [place] [facility] [address] [id number] [place] [address] 2546 14 Mar, 2011 [facility] [place] [facility] [address] [id number] [place] [address] 2546 13 Mar, 2011 [facility] [place] [facility] [address] [id number] [place] [address] 2546 Mar, [facility] [place] [facility] [address] [id number] [place] [address]- 9916 Mar, [facility] [place] [facility] [address] [id number] [place] [address] 2546 Mar, [facility] [place] [facility] [address] [id number] [place] [address] 2546 Feb, [facility] [address] [id number] [place] [address]- 4190 Feb, [facility] [place] [facility] [address] [id number] [place] [address]- 4106 Feb, [facility] [place] [facility] [address] [id number] [place] [address]- 0772 Feb, [facility] [place] [facility] [address] [id number] [place] [address] 2546 Feb, [facility] [place] [facility] [address] [id number] [place] [address] 2546 Feb, [facility] [place] [facility] [address] [id number] [place] [address]- 0256 Feb, [facility] [place] [facility] [address] [id number] [place] [address] 2546 Feb, [facility] [place] [facility] [address] [id number] [place] [address] 6515 Feb, [facility] [place] [facility] [address] [id number] [place] [address]- 5227 Feb, [facility] [place] [facility] [address] [id number] [place] [address]- 3355 Jan, [facility] [place] [facility] [address] [id number] [place] [address]491 Jan, [facility] [place] [facility] [address] [id number] [place] [address]- 6874 Jan, [facility] [place] [facility] [address] [id number] [place] [address]- 5595 Jan, [facility] [place] [facility] [address] [id number] [place] [address]- 9873 Jan, [facility] [place] [facility] [address] [id number] [place] [address]- 2233 Jan, [facility] [place] [facility] [address] [id number] [place] [address]- 9658 Jan, [facility] [place] [facility] [address] [id number] [place] [address]- 1126 Jan, [facility] [place] [facility] [address] [id number] [place] [address]- 2404 Jan, [facility] [place] [facility] [address] [id number] [place] [address]- 9173 Jan, [facility] [place] [facility] [address] [id number] [place] [address] Jan, [facility] [place] [facility] [address] [id number] [place] [address] Dec, [facility] [place] [facility] [address] [id number] [place] [address] Dec, [facility] [place] [facility] [address] [id number] [place] [address] Dec, [facility] [place] [facility] [address] [id number] [place] [address] 16 Dec, 2010 [facility] [place] [facility] [address] [id number] [place] [address] 14 Dec, 2010 [facility] [place] [facility] [address] [id number] [place] [address] 09 Dec, 2010 [facility] [place] [facility] [address] [id number] [place] [address] 08 Dec, 2010 [facility] [place] [facility] [address] [id number] [place] [address] 07 Dec, 2010 [facility] [place] [facility] [address] [id number] [place] [address] Dec, [facility] [place] [facility] [address] [id number] [place] [address] Nov, [facility] [place] [facility] [address] [id number] [place] [address] 31 Nov, 2010 [facility] [place] [facility] [address] [id number] [place] [address] 27 Nov, 2010 [facility] [place] [facility] [address] [id number] [place] [address] 24 Nov, 2010 [facility] [place] [facility] [address] [id number] [place] [address] 24 Nov, 2010 [facility] [place] [facility] [address] [id number] [place] [address] 13 Nov, 2010 [facility] [place] [facility] [address] [id number] [place] [address] Aug, [facility] [place] [facility] [address] [id number] [place] [address] 14 Feb, 2010 [facility] [place] [facility] [address] [id number] [place] [address] 14 Jan, 2010 [facility] [place] [facility] [address] [id number] [place] [address] 06 Jan, 2010 [facility] [place] [facility] [address] [id number] [address] Jan, [facility] [address] [id number] [address] Jan, [facility] [address] [facility] [id number], [place] [address] Jan, [facility] [address] [facility] [id number], [place] [address] Dec, [facility] [address] [facility] [id number], [place] [address] Dec, [facility] [id number] [address] Dec, [facility] [id number], [place] [address] Dec, [facility] [id number], [place] [address] Nov, [facility] [address] [id number], [place] [address] Nov, [facility] [address] [id number], [place] [address] Nov, IMMUNIZATIONS No Known Immunizations SOCIAL HISTORY Never Assessed REASON FOR VISIT pt states that she just has not felt right for weeks. She states that she has to sit on the toilet for a long time in able to urinate. She states that she has low back pain also. ALKA Kerr, she did have a UTI a couple weeks ago and took antibiotics for it but it is getting worse. ALKA Kerr PLAN OF CARE Activity Details Follow Up w/ Rukhsana Ramos 01/07 Reason:annual physical VITAL SIGNS Height 68 in 2017-12-30 Weight 212.9 lbs 2017-12-30 Temperature 97.9 degrees Fahrenheit 2017-12-30 Heart Rate 81 bpm 2017-12-30 Respiratory Rate 18 2017-12-30 BMI 32.37 kg/m2 2017-12-30 Blood pressure systolic 98 mmHg 2017-12-30 Blood pressure diastolic 54 mmHg 2017-12-30 MEDICATIONS Medication Instructions Dosage Frequency Start Date End Date Duration Status BD Ultra-Fine Micro Pen Needle 32G X 6 MM as directed Nov, Active Furosemide 20 mg Orally Once a day 1 tablet 24h Active Tizanidine HCl 4 MG Orally Three times a day 1 tablet as needed 8h May, Active Clonidine HCl 0.1 MG Orally twice a day 1 tablet 12h 30 Active Lyrica 150 MG Orally 3 times a day 1 capsule 8h 28 days Active Saxenda (Dose Escalation) 18 mg/3 mL Subcutaneous Once a day 0.6 mg QD x 7 days, 1.2 mg QD x 7 days, 1.8 mg QD x 7 days, 2.4 mg QD x 7 days, then 3 mg QD ( GOAL) 24h 10 Aug, 2017 Active Bethanechol Chloride 10 MG Orally Three times a day 1 tablet after meals 8h Dec, 10 days Active Promethazine HCl 25 MG Orally every 12 hrs 1 tablet as needed 12h 30 Active Fluoxetine HCl 40 MG TAKE 2 CAPSULES BY MOUTH ONCE DAILY IN THE MORNING 30 Active Sumatriptan Succinate 100 mg Orally Once a day 1 tablet as needed one time 24h 30 Active Klonopin 1 MG Orally 3 times a day 1 tablet 8h 30 days Active Aspirin 81 MG Orally Once a day 1 tablet 24h Active Nabumetone 500 MG TAKE 1 TABLET BY MOUTH TWICE DAILY AFTER MEALS 30 Active Fentanyl 50 MCG/HR Transdermal 48 hrs 1 patch to skin Dec, 30 days Active RESULTS Name Result Date Reference Range UA LONG DIP (IN HOUSE) 2017-12-30 Lot # [id number] Exp date 10/2018 Clarity slightly cloudy Color dark yellow Odor none GLU negative YOLANDA negative KET negative SG 1.020 BLO negative pH 6.0 Protein negative URO 0.2 NIT negative HELLEN negative Lot # Exp date PROCEDURES Procedure Date Ordered Result Body Site URINALYSIS, AUTO, W/O SCOPE Dec 30, 2017 INSTRUCTIONS MEDICATIONS ADMINISTERED No Known Medications MEDICAL [...]
--- OUTSIDE RECORDS SUMMARY | 2018-01-13 20:30 | XMS REPORT ---
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 Active 349576335 Problem Hypertension I10 Active 95042466 Problem Arthritis M19.90 Active 5008834 Problem 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 Active 08150913 Problem Anxiety F41.9 Active 36643706 Problem Unspecified episodic mood disorder F39 Active 80395533 Problem Left hip pain M25.552 Active 27877163 ALLERGIES Substance Reaction Event Type Date Status Propranolol HCl chest pain, headache Drug Allergy Dec, Active Bactrim unknown Drug Allergy Dec, Active Penicillins unknown Non Drug Allergy Dec, Active ENCOUNTERS Encounter Location Date Diagnosis [facility] [address] [facility] [id number] [address] Dec, [facility] [address] [facility] [id number], [place] [address] Dec, Left hip pain M25.552 ; Dysuria R30.0 ; Anxiety F41.9 and Acute cystitis without hematuria N30.00 [facility] [id number] [place] [address] 70869- 8674 Dec, Unspecified episodic mood disorder F39 [facility] [id number] [place] [address] 56425- 2197 Nov, Arthritis M19.90 [facility] [address] 66867- 5543 Nov, [facility] [id number] [place] [address] 82619- 0662 Nov, Chronic hepatitis C without hepatic coma B18.2 and Screening for malignant neoplasm of breast Z12.31 [facility] [id number] [place] [address] 55454- 4952 Nov, [facility] [id number] [place] [address] 93611- 4835 Nov, Chronic hepatitis C without hepatic coma B18.2 [facility] [id number] [place] [address] 78520- 1915 Nov, [facility] [id number] [place] [address] 94275- 9253 Nov, Arthritis M19.90 and Unspecified episodic mood disorder F39 [facility] [id number] [place] [address] 15885- 2330 Oct, [facility] [id number] [place] [address] 77467- 5375 Oct, Chronic hepatitis C without hepatic coma B18.2 and Encounter for immunization Z23 [facility] [id number] [place] [address] 23387- 6781 Oct, [facility] [id number] [place] [address] 02411- 8550 Oct, Arthritis M19.90 and Unspecified episodic mood disorder F39 [facility] [id number] [place] [address] 01669- 3776 Sep, Chronic hepatitis C without hepatic coma B18.2 [facility] [id number] [place] [address] 58932- 7753 Sep, Gastroesophageal reflux disease, esophagitis presence not specified K21.9 and Other chronic pain G89.29 [facility] [id number] [place] [address] 48800- 4123 Sep, [facility] [id number] [place] [address] 18590- 9533 Sep, [facility] [id number] [place] [address] 02555- 8887 Sep, Chronic hepatitis C without hepatic coma B18.2 [facility] [id number] [place] [address] 39493- 2529 Sep, 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 [facility] [id number] [place] [address] 34108- 0496 Sep, Arthritis M19.90 [facility] [id number] [place] [address] 23678- 4871 Sep, [facility] [id number] [place] [address] 55993- 0034 Sep, Unspecified episodic mood disorder F39 [facility] [id number] [place] [address] 67728- 6065 Aug, [facility] [id number] [place] [address] [id number] Aug, [facility] [id number] [place] [address] 50466- 7854 Aug, Arthritis M19.90 [facility] [id number] [place] [address] 81943- 0348 Aug, [facility] [address] [address] 30[address] Aug, Obesity (BMI 30.0-34.9) E66.9 ; Unspecified episodic mood disorder F39 and Hypertension I10 [facility] [address] [id number] [address] 4421 Aug, Unspecified episodic mood disorder F39 [facility] [id number] [place] [address] 54307- 9886 Aug, [facility] [id number] [place] [address] 89790- 1089 Jul, Unspecified episodic mood disorder F39 [facility] [id number] [place] [address] 51960- 4903 Jul, [facility] [id number] [place] [address] 92145- 5182 Jul, Arthritis M19.90 [facility] [id number] [place] [address] 90909- 5417 Jul, Left hip pain M25.552 ; Hypertension I10 ; Other obesity due to excess calories E66.09 and Body mass index (BMI) of 34.0-34.9 in adult Z68.34 [place] [address] [place] [address] 37914- 6834 Jul, Unspecified episodic mood disorder F39 [facility] [id number] [place] [address] 53750- 3752 June, Gastroesophageal reflux disease, esophagitis presence not specified K21.9 [facility] [address] [address] 6460 June, [facility] [id number] [place] [address] 79330- 0443 June, [facility] [address], [place] [address] 6554 June, Arthritis M19.90 [facility] [address] [address]- 6616 June, [facility] [id number] [address]- 7043 June, [facility] [address] [address] 3422 June, Unspecified episodic mood disorder F39 [facility] [id number] [address] 8269 May, Unspecified episodic mood disorder F39 [facility] [address] [address]- 4392 May, [facility] [id number] [place] [address] 59362- 2920 May, Arthritis M19.90 [facility] [address] [address] May, Dysuria R30.0 ; Abscess L02.91 and Acute cystitis without hematuria N30.00 [facility] [address], [place] [address] 8280 May, 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 ; Unspecified episodic mood disorder F39 ; Combined drug dependence excluding opioids, 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 ; Anxiety F41.9 and Other psychoactive substance dependence, 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 [facility] [address], [place] [address]- 50[address] May, [facility] [address] [address]- 3706 May, 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 ; Unspecified episodic mood disorder F39 ; Combined drug dependence excluding opioids, 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 ; Other psychoactive substance dependence, 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 and Anxiety F41.9 [facility] [id number] [address]- 9396 May, Other chronic pain G89.29 ; Left hip pain M25.552 ; Hypertension I10 ; 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, 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 and Unspecified episodic mood disorder F39 [facility] [id number] [place] [address] 58599- 6686 28 Apr, 2017 [facility] [id number] [place] [address] 15848 -7392 Apr, Neck pain M54.2 ; Left hip pain M25.552 and Fall, initial encounter W19.XXXA [facility] [id number] [place] [address] 86604- 0514 Apr, Unspecified episodic mood disorder F39 ; Combined drug dependence excluding opioids, 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 ; Anxiety F41.9 ; Other psychoactive substance dependence, 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 and 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 [facility] [id number] [place] [address] 74243- 3936 Apr, [facility] [id number] [place] [address] 79205- 2547 Apr, Arthritis M19.90 and Unspecified episodic mood disorder F39 [facility] [id number] [place] [address] 42000- 1311 Apr, Unspecified episodic mood disorder F39 [facility] [id number] [place] [address] 62660- 7733 Apr, [facility] [id number] [place] [address] 00931- 2546 08 Apr, 2017 [facility] [id number] [place] [address] 83102- 2547 07 Apr, 2017 Unspecified episodic mood disorder F39 ; Combined drug dependence excluding opioids, 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 ; Anxiety F41.9 ; Other psychoactive substance dependence, 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 and 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 [facility] [id number] [place] [address] 70083 2546 Mar, Unspecified episodic mood disorder F39 [facility] [id number] [place] [address] 61005- 1398 Mar, Gastroesophageal reflux disease, esophagitis presence not specified K21.9 [facility] [id number] [place] [address] 37106- 7896 Mar, Arthritis M19.90 and Unspecified episodic mood disorder F39 [facility] [id number] [place] [address] 65552- 8986 Feb, [facility] [id number] [place] [address] 50361 2545 Feb, [facility] [id number] [place] [address] 44446- 4654 Feb, [facility] [id number] [place] [address] 00067- 5386 Feb, Arthritis M19.90 [facility] [id number] [place] [address] 95101 2549 Feb, Non-pressure chronic ulcer of right calf, 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 ; Unspecified episodic mood disorder F39 and Left hip pain M25.552 [place] [id number] [place] [address] 06846- 6463 Feb, [facility] [id number] [place] [address] 80281- 3246 Feb, [facility] [id number] [place] [address] 44674- 7724 Jan, Arthritis M19.90 [facility] [id number] [place] [address] 38096 2546 Jan, Left hip pain M25.552 and Non-pressure chronic ulcer of right calf, 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 [facility] [id number] [place] [address] 80573- 8756 Jan, Chronic hepatitis C without hepatic coma B18.2 [facility] [id number] [place] [address] 73011- 0709 Jan, Encounter for immunization Z23 ; Venous insufficiency ( chronic) (peripheral) I87.2 ; Non-pressure chronic ulcer of unspecified calf limited to breakdown of skin L97.201 and Gastroesophageal reflux disease, esophagitis presence not specified K21.9 [facility] [id number] [place] [address] 26106- 9876 Jan, [facility] [address] 34971- 2738 Jan, Chronic hepatitis C without hepatic coma B18.2 and Encounter for immunization Z23 [facility] [address] 59922- 9575 Jan, Arthritis M19.90 [facility] [id number] [place] [address] 84903- 2936 Jan, [place] [id number] [place] [address] 24450- 9243 Dec, [facility] [id number] [place] [address] 93077- 7587 Dec, Unspecified episodic mood disorder F39 [facility] [id number] [place] [address] 45813- 4133 Dec, Arthritis M19.90 [facility] [id number] [place] [address] 44383- 4789 Dec, Arthritis M19.90 [facility] [id number] [place] [address] 91122- 2543 Nov, [facility] [id number] [place] [address] 78451- 7398 Nov, [facility] [id number] [place] [address] 76770- 1728 Nov, Other psychoactive substance dependence, 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 [id number] [place] [address] 95219 -7630 Oct, Partial thickness burn of abdomen, initial encounter T21.22XA [facility] [id number] [place] [address] 01612- 9310 Oct, [facility] [id number] [place] [address] 73458- 6756 Sep, Arthritis M19.90 [facility] [id number] [place] [address] 59138- 9290 Sep, [facility] [id number] [place] [address] 93203- 0140 Sep, [facility] [id number] [place] [address] 56953- 0411 Sep, Unspecified episodic mood disorder F39 ; Chronic hepatitis C without hepatic coma B18.2 and Left hip pain M25.552 [facility] [id number] [place] [address] 17494- 4744 Sep, Arthritis M19.90 and Left hip pain M25.552 [facility] [id number] [place] [address] 09395- 6984 Aug, [facility] [id number] [place] [address] 40766- 5982 Aug, [facility] [id number] [address]- 3324 Aug, Chronic hepatitis C without hepatic coma B18.2 [facility] [address], [place] [address]- 9578 Aug, [facility] [id number] [place] [address] 26974- 9810 Aug, Chronic hepatitis C without hepatic coma B18.2 [facility] [id number] [place] [address] 15387- 7915 Aug, 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, 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 [facility] [id number] [place] [address] 01681- 7377 Aug, [facility] [id number] [place] [address] 09348- 6969 Aug, Chronic hepatitis C without hepatic coma B18.2 and Hypertension I10 [facility] [id number] [place] [address] 34845- 2838 Jul, [facility] [id number] [place] [address] 32303- 1287 June, [facility] [id number] [place] [address] 14566- 4652 Apr, Fibromyalgia M79.7 ; Left hip pain M25.552 and Decubitus ulcer of sacral region, stage 1 L89.151 [facility] [id number] [place] [address] 77724- 0859 Apr, [facility] [id number] [place] [address] 49168- 6726 Apr, [facility] [id number] [place] [address] 13903- 5057 Feb, [facility] [id number] [place] [address] 35597- 0816 Dec, Anxiety F41.9 ; Combined drug dependence excluding opioids, 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 and Unspecified episodic mood disorder F39 [facility] [id number] [place] [address] 13911- 1652 Dec, [facility] [id number] [place] [address] 81890- 4281 Nov, [facility] [address] 16928- 0242 Nov, [facility] [id number] [place] [address] 06725- 7485 Nov, 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 and Anxiety F41.9 [facility] [id number] [place] [address] 94904- 5249 Oct, 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 and Anxiety F41.9 [facility] [address] [place] [address] 53295- 0768 Sep, Other disorder of impulse control 312.39 ; Combined drug dependence excluding opioids, 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 ; Anxiety F41.9 and Unspecified episodic mood disorder F39 [facility] [address] [place] [address] 41817- 9532 Sep, Other chronic pain G89.29 [facility] [id number] [place] [address] 69705- 6717 Sep, [facility] [id number] [place] [address] 48742- 0961 Sep, [facility] [id number] [place] [address] 21671- 4910 Aug, [facility] [id number] [place] [address] 84469- 6368 Aug, [facility] [id number] [place] [address] 62041- 2784 Aug, [facility] [id number] [place] [address] 76728- 1925 Jul, [facility] [id number] [place] [address] 65695- 9228 Jul, [facility] [id number] [place] [address] 18197- 6159 Jul, [facility] [id number] [place] [address] 99564- 6798 Jul, Arthritis M19.90 ; Chronic hepatitis C without hepatic coma B18.2 and Left hip pain M25.552 [facility] [id number] [place] [address] 11603- 3486 Jul, Left knee pain M25.562 [facility] [id number] [place] [address] 18169- 9763 Jul, Combined drug dependence excluding opioids, 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 ; Anxiety F41.9 ; Other disorder of impulse control 312.39 and Unspecified episodic mood disorder F39 [facility] [id number] [place] [address] 65504- 0984 Jul, Left knee pain M25.562 [facility] [id number] [place] [address] 07205- 4662 Jul, Left knee pain M25.562 and Left hip pain M25.552 [facility] [id number] [place] [address] 31959- 5667 Jul, [facility] [id number] [place] [address] 20242- 8768 June, [facility] [id number] [place] [address] 09983- 7213 June, Combinations of drug dependence excluding opioid type drug, 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 ; Other disorder of impulse control 312.39 ; Unspecified episodic mood disorder F39 and Anxiety F41.9 [facility] [id number] [place] [address] 83371- 6515 June, Other fatigue R53.83 ; Headache R51 and Left knee pain M25.562 [facility] [id number] [place] [address] 64740- 7104 June, Unspecified episodic mood disorder F39 ; Combinations of drug dependence excluding opioid type drug, 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 ; Other disorder of impulse control 312.39 and Anxiety F41.9 [facility] [id number] [place] [address] 59474- 0349 June, Anxiety F41.9 [place] [id number] [place] [address] 92121- 7794 June, Pain in left knee M25.562 [place] [id number] [place] [address] 29763- 1335 June, Anxiety F41.9 and Combinations of drug dependence excluding opioid type drug, 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 [place] [id number] [place] [address] 65215- 8626 June, Unspecified episodic mood disorder 296.90 ; Combinations of drug dependence excluding opioid type drug, 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 and Other disorder of impulse control 312.39 [place] [address] [place] [address]0945- 6311 June, Anxiety F41.9 and Unspecified episodic mood disorder 296.90 [place] [id number] [address] May, Arthritis M19.90 [facility] [id number] [place] [address] 29141[address] 2923 May, Arthritis M19.90 [place] [id number] [place] [address] 12075- 0390 May, Anxiety F41.9 ; Combinations of drug dependence excluding opioid type drug, 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 and Other disorder of impulse control 312.39 [place] [id number] [place] [address] 90368- 3594 18 May, 2015 Left knee pain M25.562 [facility] [id number] [address] 14 May, 2015 Arthritis M19.90 [facility] [id number] [address] May, [facility] [id number] [place] [address] 14256- 9286 May, Anxiety F41.9 ; Unspecified episodic mood disorder 296.90 ; Combinations of drug dependence excluding opioid type drug, 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 and Other disorder of impulse control 312.39 [facility] [id number] [place] [address] 53240- 2657 May, Left knee pain M25.562 [facility] [id number] [place] [address] 43148- 6266 May, Left knee pain M25.562 ; Combinations of drug dependence excluding opioid type drug, 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 ; Other disorder of impulse control 312.39 ; Fibromyalgia M79.7 ; Hypertension I10 ; Unspecified episodic mood disorder 296.90 and Left hip pain M25.552 [facility] [id number] [address] May, Unspecified episodic mood disorder 296.90 ; Other disorder of impulse control 312.39 ; Combinations of drug dependence excluding opioid type drug, 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 and Anxiety F41.9 [facility] [id number] [address] May, Left knee pain M25.562 ; Combinations of drug dependence excluding opioid type drug, 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 ; Other disorder of impulse control 312.39 ; Fibromyalgia M79.7 ; Hypertension I10 ; Unspecified episodic mood disorder 296.90 and Left hip pain M25.552 [facility] [address], [place] [address] May, Anxiety F41.9 ; Unspecified episodic mood disorder 296.90 ; Other disorder of impulse control 312.39 and Combinations of drug dependence excluding opioid type drug, 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 [facility] [id number] [place] [address] 00015- 9201 30 Apr, 2015 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 and 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, implants and grafts, initial encounter T84.82XA [facility] [id number] [place] [id number] 28 Apr, 2015 Anxiety F41.9 ; Unspecified episodic mood disorder 296.90 ; Combinations of drug dependence excluding opioid type drug, 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 and Other disorder of impulse control 312.39 [facility] [id number] [place] [address] 24782- 4675 25 Apr, 2015 Arthritis M19.90 [facility] [id number] [place] [address] 89963- 3218 21 Apr, 2015 Anxiety F41.9 ; Unspecified episodic mood disorder 296.90 ; Combinations of drug dependence excluding opioid type drug, 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 and Other disorder of impulse control 312.39 [facility] [id number] [place] [address] 99596- 9598 17 Apr, 2015 Arthritis M19.90 [facility] [id number] [place] [address] 98454- 1847 15 Apr, 2015 [facility] [id number] [place] [address] 69376- 4068 15 Apr, 2015 [facility] [id number] [place] [address] 22153- 6404 14 Apr, 2015 Unspecified episodic mood disorder 296.90 ; Combinations of drug dependence excluding opioid type drug, 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 ; Other disorder of impulse control 312.39 and Anxiety F41.9 [facility] [id number] [place] [address] 68556 -0070 11 Apr, 2015 Left knee pain M25.562 [facility] [id number] [place] [address] 45331- 5400 Apr, [place] [id number] [place] [address] 03606- 0344 Mar, Unspecified episodic mood disorder 296.90 ; Anxiety F41.9 ; Other disorder of impulse control 312.39 and Combinations of drug dependence excluding opioid type drug, 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 [place] [id number] [place] [address] 35078- 9081 Mar, Hyperpigmentation L81.9 [place] [id number] [place] [address] 85606- 9910 Mar, Arthritis M19.90 and Anxiety F41.9 [place] [id number] [place] [address] 64237- 5175 Mar, Unspecified episodic mood disorder F39 ; Combined drug dependence excluding opioids, 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 ; 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 and Anxiety F41.9 [place] [id number] [place] [address] 00885- 9711 12 Mar, 2015 Well woman exam Z01.419 ; Other fatigue R53.83 ; Hot flashes N95.1 ; Depression, unspecified depression type F32.9 and Body mass index (BMI) of 23.0-23.9 in adult Z68.23 [place] [id number] [place] [address] 02451- 3631 11 Mar, 2015 Unspecified episodic mood disorder 296.90 ; Other disorder of impulse control 312.39 and Anxiety F41.9 [place] [id number] [place] [address] 26815- 5989 11 Mar, 2015 Well woman exam Z01.419 [...] of breast Z12.39 and Limited mobility Z74.[address] [address]- 1366 10 Mar, 2015 [place] [address] [address]- [address] Mar, [address] [address]- 4414 Mar, [address] 64153- 0881 Mar, Other specified complication of internal orthopedic prosthetic devices, implants and grafts, initial encounter T84.89XA ; Fibromyalgia M79.7 ; Hypertension I10 ; Anemia D64.9 ; Insomnia G47.00 ; Anxiety F41.9 ; Arthritis M19.90 and Migraine G43.[address] [address]- 8988 Mar, [place] [address] 79494- 5858 Feb, [place] [address] 94997- 1630 Feb, Arthritis M19.90 and Anxiety F41.9 [place] [address] [address]38- 2081 Feb, [address] [address]128- 3235 Feb, [place] [address] 12456- 1791 Feb, [address] [place] [address]- 6799 Feb, [facility] [address], [place] [address] 7917 Feb, Anxiety F41.9 [facility] [id number] [place] [address] 20349- 8296 15 Feb, 2015 [facility] [id number] [place] [address] 06213- 9339 Feb, [facility] [id number] [place] [address] 27721- 0433 Feb, 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 and Fibromyalgia M79.7 [facility] [id number] [place] [address] 22325- 3490 Feb, [facility] [id number] [place] [address] 45861- 4594 Jan, [facility] [id number] [place] [address] 94079- 1182 Jan, [facility] [id number] [place] [address] 23818- 5293 Jan, [facility] [id number] [place] [address] 14607- 7020 24 Jan, 2015 [facility] [address], [place] [address]- 0428 16 Jan, 2015 [facility] [address], [place] [address] 4694 08 Jan, 2015 [facility] [address], [place] [address]- 9506 Jan, [facility] [id number] [place] [address] 09462- 5902 07 Jan, 2015 [facility] [address], [place] [address]- 5250 Dec, [facility] [id number] [address] 9038 17 Dec, 2014 Left knee pain M25.562 [facility] [id number] [place] [address] 27558- 6603 17 Dec, 2014 Left knee pain M25.562 [facility] [id number] [place] [address] 63287- 4352 16 Dec, 2014 Fibromyalgia M79.7 ; Hypertension I10 and Arthritis M19.90 [facility] [id number] [place] [address] 36086- 9115 Dec, [facility] [id number] [place] [address] 62384- 7749 Dec, [facility] [id number] [place] [address] 37754- 0752 Dec, [facility] [id number] [place] [address] 79944- 1503 Dec, [facility] [id number] [place] [address] 09785- 2106 Nov, [facility] [id number] [place] [address] 29031- 7532 Nov, [facility] [address], [place] [address]- 2513 Nov, [facility] [id number] [place] [address] 82229- 4497 Nov, Hypertension I10 [facility] [address], [place] [address]- 1130 23 Oct, 2014 [facility] [id number] [place] [address] 88127- 0408 17 Oct, 2014 [facility] [address], [place] [address]- 5545 Oct, 2014 [facility] [id number] [place] [address] 25291- 6384 Oct, [facility] [place] [facility] [address] [id number] [place] [address]- 2770 Oct, [facility] [address] [id number] [place] [address]- 6465 Sep, [facility] [address] [id number] [place] [address]- 1752 Sep, [facility] [address] [id number] [place] [address]- 1888 Sep, Hip pain associated with recalled total hip arthroplasty hardware 996.77 [facility] [address] [id number] [place] [address]- 7237 Sep, [facility] [address] [id number] [place] [address]- 2017 Sep, [facility] [address] [id number] [address]- 0585 Sep, [facility] [address] [id number] [place] [address]- 1108 Aug, [facility] [address] [id number] [place] [address]- 1456 Jul, [facility] [address] [id number] [place] [address]- 8912 June, [facility] [address] [id number], [place] [address]- 0516 June, [facility] [place] [facility] [address] [id number], [place] [address]- 2876 June, [facility] [place] [facility] [address] [id number] [place] [address]- 3888 June, [facility] [place] [facility] [address] [id number] [place] [address]- 8642 June, [facility] [place] [facility] [address] [id number] [place] [address]- 9716 June, [facility] [place] [facility] [address] [id number] [place] [address]- 0468 30 May, 2014 [facility] [place] [facility] [address] [id number] [place] [address]- 1631 14 May, 2014 [facility] [place] [facility] [address] [id number] [place] [address]- 8946 13 May, 2014 [facility] [place] [facility] [address] [id number] [place] [address]- 7650 30 Apr, 2014 [facility] [place] [facility] [address] [id number] [place] [address]- 5402 30 Apr, 2014 [facility] [place] [facility] [address] [id number] [place] [address]- 8661 19 Apr, 2014 [facility] [place] [facility] [address] [id number] [place] [address]- 4629 19 Apr, 2014 [facility] [place] [facility] [address] [id number] [place] [address]- 2693 Apr, [facility] [place] [facility] [address] [id number] [place] [address]- 1148 Apr, [facility] [place] [facility] [address] [id number] [place] [address]- 5173 Apr, [facility] [place] [facility] [address] [id number] [place] [address]- 3847 12 Apr, 2014 [facility] [place] [facility] [address] [id number] [place] [address]- 6881 10 Apr, 2014 [facility] [place] [facility] [address] [id number] [place] [address]- 9915 05 Apr, 2014 [facility] [place] [facility] [address] [id number] [place] [address]- 2886 05 Apr, 2014 [facility] [place] [facility] [address] [id number] [place] [address]- 1286 Mar, [facility] [place] [facility] [address] [id number] [place] [address]- 1102 Mar, [facility] [place] [facility] [address] [id number] [place] [address]- 6889 16 Mar, 2014 [facility] [place] [facility] [address] [id number] [place] [address]- 8776 16 Mar, 2014 [facility] [place] [facility] [address] [id number] [place] [address]- 5086 Mar, [facility] [place] [facility] [address] [id number] [place] [address]- 9085 Mar, [facility] [place] [facility] [address] [id number] [place] [address]- 6469 Feb, [facility] [place] [facility] [address] [id number] [place] [address]- 6790 Feb, [facility] [place] [facility] [address] [id number] [place] [address]- 7960 Feb, [facility] [place] [facility] [address] [id number] [place] [address]- 6136 Feb, [facility] [place] [facility] [address] [id number] [place] [address]- 9258 Jan, [facility] [place] [facility] [address] [id number] [place] [address]- 0201 Jan, [facility] [place] [facility] [address] [id number] [place] [address]- 5302 Jan, [facility] [place] [facility] [address] [id number] [place] [address]- 8004 Jan, [facility] [place] [facility] [address] [id number] [place] [address]- 0676 Dec, [facility] [place] [facility] [address] [id number] [place] [address]- 0940 Dec, [facility] [place] [facility] [address] [id number] [place] [address]- 3504 Dec, [facility] [place] [facility] [address] [id number] [place] [address]- 3538 Dec, [facility] [place] [facility] [address] [id number] [place] [address]- 3723 Dec, [facility] [place] [facility] [address] [id number] [place] [address]- 3789 Dec, [facility] [place] [facility] [address] [id number] [place] [address]- 3458 Dec, [facility] [place] [facility] [address] [id number] [place] [address]- 4793 Dec, [facility] [place] [facility] [address] [id number] [place] [address]- 3556 Dec, [facility] [place] [facility] [address] [id number] [place] [address]- 9440 Dec, [facility] [place] [facility] [address] [id number] [place] [address]- 9923 Dec, [facility] [place] [facility] [address] [id number] [place] [address]- 2181 Nov, [facility] [place] [facility] [address] [id number] [place] [address]- 9505 Nov, [facility] [place] [facility] [address] [id number] [place] [address]- 0765 28 Nov, 2013 [facility] [place] [facility] [address] [id number] [place] [address]- 0101 Nov, [facility] [place] [facility] [address] [id number] [place] [address]- 5355 17 Nov, 2013 [facility] [place] [facility] [address] [id number] [place] [address]- 4368 15 Nov, 2013 [facility] [place] [facility] [address] [id number] [place] [address]- 5117 15 Nov, 2013 [facility] [place] [facility] [address] [id number] [place] [address]- 4810 15 Nov, 2013 [facility] [place] [facility] [address] [id number] [place] [address]- 0317 15 Nov, 2013 [facility] [place] [facility] [address] [id number] [place] [address]- 0293 14 Nov, 2013 [facility] [place] [facility] [address] [id number] [place] [address]- 4886 14 Nov, 2013 [facility] [place] [facility] [address] [id number] [place] [address]- 8737 14 Nov, 2013 [facility] [place] [facility] [address] [id number] [place] [address]- 7962 14 Nov, 2013 [facility] [place] [facility] [address] [id number] [place] [address]- 1123 13 Nov, 2013 [facility] [place] [facility] [address] [id number] [place] [address]- 9396 13 Nov, 2013 [facility] [place] [facility] [address] [id number] [place] [address]- 8673 11 Nov, 2013 [facility] [place] [facility] [address] [id number] [place] [address]- 5940 11 Nov, 2013 [facility] [place] [facility] [address] [id number], [place] [address]- 6516 07 Nov, 2013 [facility] [place] [facility] [address] [id number], [place] [address]- 3772 07 Nov, 2013 [facility] [place] [facility] [address] [id number], [place] [address]- 3653 07 Nov, 2013 [facility] [place] [facility] [address] [id number], [place] [address]- 0956 07 Nov, 2013 [facility] [place] [facility] [address] [id number], [place] [address]- 2334 30 Oct, 2013 [facility] [place] [facility] [address] [id number], [place] [address]- 1234 30 Oct, 2013 [facility] [place] [facility] [address] [id number], [place] [address]- 6045 26 Oct, 2013 [facility] [place] [facility] [address] [id number] [place] [address]- 3876 26 Oct, 2013 [facility] [place] [facility] [address] [id number] [place] [address]- 8786 22 Oct, 2013 [facility] [place] [facility] [address] [id number] [place] [address]- 1585 22 Oct, 2013 [facility] [place] [facility] [address] [id number] [place] [address]- 6143 18 Oct, 2013 [facility] [place] [facility] [address] [id number] [place] [address]- 5392 18 Oct, 2013 [facility] [place] [facility] [address] [id number] [place] [address]- 1051 18 Oct, 2013 [facility] [place] [facility] [address] [id number] [place] [address]- 4420 Oct, 2013 [facility] [place] [facility] [address] [id number] [place] [address]- 1682 12 Oct, 2013 [facility] [place] [facility] [address] [id number] [place] [address]- 7309 Oct, 2013 [facility] [place] [facility] [address] [id number] [place] [address]- 7005 Oct, 2013 [facility] [place] [facility] [address] [id number] [place] [address]- 0935 Oct, 2013 [facility] [place] [facility] [address] [id number], [place] [address]- 3811 Sep, [facility] [place] [facility] [address] [id number] [place] [address]- 8513 Sep, [facility] [place] [facility] [address] [id number] [place] [address]- 8873 Sep, [facility] [place] [facility] [address] [id number] [place] [address]- 8613 Sep, [facility] [place] [facility] [address] [id number] [place] [address]- 8254 Sep, [facility] [place] [facility] [address] [id number] [place] [address]- 1711 Sep, [facility] [place] [facility] [address] [id number] [place] [address]- 4863 Sep, [facility] [place] [facility] [address] [id number] [place] [address]- 3551 Sep, [facility] [place] [facility] [address] [id number] [place] [address]- 7352 Sep, [facility] [place] [facility] [address] [id number] [place] [address]- 3051 Sep, [facility] [place] [facility] [address] [id number] [place] [address]- 1479 Sep, [facility] [place] [facility] [address] [id number] [place] [address]- 4305 Sep, [facility] [place] [facility] [address] [id number] [place] [address]- 5909 Sep, [facility] [place] [facility] [address] [id number] [place] [address]- 9777 Sep, [facility] [place] [facility] [address] [id number] [place] [address]- 7886 Sep, [facility] [place] [facility] [address] [id number] [place] [address]- 2508 Sep, [facility] [place] [facility] [address] [id number] [place] [address]- 0636 Sep, [facility] [place] [facility] [address] [id number] [place] [address]- 8700 Sep, [facility] [place] [facility] [address] [id number] [place] [address]- 4650 Aug, [facility] [place] [facility] [address] [id number] [place] [address]- 3779 Aug, [facility] [place] [facility] [address] [id number] [place] [address]- 7482 Aug, [facility] [place] [facility] [address] [id number] [place] [address]- 6857 Aug, [facility] [place] [facility] [address] [id number] [place] [address]- 5420 Aug, [facility] [place] [facility] [address] [id number] [place] [address]- 9044 Aug, [facility] [place] [facility] [address] [id number] [place] [address]- 5740 Jul, [facility] [place] [facility] [address] [id number] [place] [address]- 3188 Jul, [facility] [place] [facility] [address] [id number] [place] [address]- 3156 Jul, [facility] [place] [facility] [address] [id number] [place] [address]- 5185 Jul, [facility] [place] [facility] [address] [id number] [place] [address] June, [facility] [place] [facility] [address] [id number] [place] [address] June, [facility] [place] [facility] [address] [id number] [place] [address] June, [facility] [place] [facility] [address] [id number] [place] [address] June, [facility] [place] [facility] [address] [id number] [place] [address] June, [facility] [place] [facility] [address] [id number] [place] [address] June, [facility] [place] [facility] [address] [id number] [place] [address] June, [facility] [place] [facility] [address] [id number] [place] [address] 29 May, 2013 [facility] [place] [facility] [address] [id number] [place] [address] 29 May, 2013 [facility] [place] [facility] [address] [id number] [place] [address] 28 May, 2013 [facility] [place] [facility] [address] [id number] [place] [address] May, [facility] [place] [facility] [address] [id number] [place] [address] May, [facility] [place] [facility] [address] [id number] [place] [address] 17 May, 2013 [facility] [place] [facility] [address] [id number] [place] [address] 31 Apr, 2013 [facility] [place] [facility] [address] [id number] [place] [address] 31 Apr, 2013 [facility] [place] [facility] [address] [id number] [place] [address] 28 Apr, 2013 [facility] [place] [facility] [address] [id number] [place] [address] 28 Apr, 2013 [facility] [place] [facility] [address] [id number] [place] [address] 14 Apr, 2013 [facility] [place] [facility] [address] [id number] [place] [address] 14 Apr, 2013 [facility] [place] [facility] [address] [id number] [place] [address] 12 Apr, 2013 [facility] [place] [facility] [address] [id number] [place] [address] 12 Apr, 2013 [facility] [place] [facility] [address] [id number] [place] [address] 10 Apr, 2013 [facility] [place] [facility] [address] [id number] [place] [address] 10 Apr, 2013 [facility] [place] [facility] [address] [id number] [place] [address] Apr, [facility] [place] [facility] [address] [id number] [place] [address] Apr, [facility] [place] [facility] [address] [id number] [place] [address] Apr, [facility] [place] [facility] [address] [id number] [place] [address] Apr, [facility] [place] [facility] [address] [id number] [place] [address] Mar, [facility] [place] [facility] [address] [id number] [place] [address] Mar, [facility] [place] [facility] [address] [id number] [place] [address] Mar, [facility] [place] [facility] [address] [id number] [place] [address] Feb, [facility] [place] [facility] [address] [id number] [place] [address] Feb, [facility] [place] [facility] [address] [id number] [place] [address] Feb, [facility] [place] [facility] [address] [id number] [place] [address] Feb, [facility] [place] [facility] [address] [id number] [place] [address] Feb, [facility] [place] [facility] [address] [id number] [place] [address] Feb, [facility] [place] [facility] [address] [id number] [place] [address] Feb, [facility] [place] [facility] [address] [id number] [place] [address] Feb, [facility] [place] [facility] [address] [id number], [place] [address] Feb, [facility] [address] [id number] [place] [address] Feb, [facility] [address] [id number] [place] [address] Jan, [facility] [address] [id number] [place] [address] Jan, [facility] [address] [id number] [place] [address] Jan, [facility] [address] [id number] [place] [address] Jan, [facility] [address] [id number] [place] [address] Jan, [facility] [address] [id number] [place] [address] Jan, [facility] [address] [id number] [place] [address] Jan, [facility] [address] [id number] [place] [address] Jan, [facility] [address] [id number] [place] [address] Jan, [facility] [address] [id number] [place] [address] Jan, [facility] [place] [facility] [address] [id number] [place] [address] 17 Jan, 2013 [facility] [place] [facility] [address] [id number] [place] [address] 17 Jan, 2013 [facility] [place] [facility] [address] [id number] [place] [address]- [address] 16 Jan, 2013 [facility] [facility] [address] [facility] [id number] [place] [address] 2005 11 Jan, 2013 [facility] [place] [facility] [address] [id number] [place] [address] 285[address] Jan, [facility] [place] [facility] [address] [id number] [place] [address] Jan, [facility] [place] [facility] [address] [id number] [place] [address] Jan, [facility] [place] [facility] [address] [id number] [place] [address] 4838 Jan, [facility] [place] [facility] [address] [id number] [place] [address] 8[address] Jan, [facility] [place] [facility] [address] [id number] [place] [address] 9883 Jan, [facility] [address] [id number] [place] [address] Jan, [facility] [place] [facility] [address] [id number] [place] [address] 2887 Dec, [facility] [facility] [address] [id number] [place] [address] Dec, [facility] [facility] [address] [id number] [place] [address] Dec, [facility] [facility] [address] [id number] [place] [address]- 6[address] Dec, [facility] [place] [facility] [address] [id number] [place] [address]- 5469 Dec, [facility] [place] [facility] [address] [id number] [place] [address]- 9040 Dec, [facility] [place] [facility] [address] [id number] [place] [address]- 7671 Dec, [facility] [address] [id number] [place] [address]- 4368 Dec, [facility] [place] [facility] [address] [id number] [place] [address]- 3164 Dec, [facility] [place] [facility] [address] [id number] [place] [address]- 0760 Dec, [facility] [place] [address] [id number] [place] [address]- 8909 Nov, [facility] [place] [facility] [address] [id number] [place] [address]- 7166 Nov, [facility] [place] [facility] [address] [id number] [place] [address]- 6489 Nov, [facility] [place] [facility] [address] [id number] [place] [address]- 9967 Nov, [facility] [place] [facility] [address] [id number] [place] [address]- 7466 Nov, [facility] [place] [facility] [address] [id number] [place] [address]- 4754 Nov, [facility] [place] [facility] [address] [id number], [place] [address] 9925 Nov, [facility] [place] [facility] [address] [id number] [place] [address]- 8718 Nov, [facility] [place] [facility] [address] [id number], [place] [address] 5629 Nov, [facility] [facility] [address] [id number], [place] [address] 2511 Nov, [facility] [facility] [address] [id number], [place] [address]- 9635 Oct, [facility] [place] [facility] [address] [id number] [place] [address]- 8623 Oct, [facility] [place] [address] [id number], [place] [address] 8454 Oct, [facility] [address] [id number], [place] [address] 25 Oct, 2012 [facility] [address] [id number] [place] [address]- 2205 Oct, [facility] [address] [id number] [place] [address]- 4524 Sep, [facility] [address] [id number] [place] [address]- 1156 Sep, [facility] [address] [id number] [place] [address]- 5520 Aug, [facility] [place] [address] [id number] [place] [address]- 3706 Aug, [facility] [address] [id number] [place] [address]- 1322 Aug, [facility] [address] [id number] [place] [address]- 2189 Aug, [facility] [address] [id number] [place] [address]- 4244 Aug, [facility] [address] [id number] [place] [address]- 4246 Aug, [facility] [address] [id number] [place] [address]- 3659 Aug, [facility] [address] [id number] [place] [address]- 0511 Jul, [facility] [address] [id number] [place] [address]- 4531 Jul, [facility] [address] [id number] [place] [address]- 1549 June, [facility] [address] [id number] [place] [address]- 1613 June, [facility] [address] [id number] [place] [address]- 8084 June, [facility] [address] [id number] [place] [address]- 8134 June, [facility] [address] [id number] [place] [address]- 4010 June, [facility] [address] [id number] [place] [address]- 0453 June, [facility] [address] [id number] [place] [address]- 2034 June, [facility] [address] [id number] [place] [address]- 3296 June, [facility] [address] [id number] [place] [address]- 3485 June, [facility] [address] [id number] [place] [address]- 3522 June, [facility] [address] [id number] [place] [address]- 0678 June, [facility] [address] [id number] [place] [address]- 1181 May, [facility] [address] [id number] [place] [address]- 1111 May, [facility] [address] [id number] [place] [address]- 5883 May, [facility] [address] [id number] [place] [address]- 9311 May, [facility] [address] [id number] [place] [address]- 2902 Apr, [facility] [address] [id number] [place] [address]- 2297 Apr, [facility] [address] [id number] [place] [address]- 3249 Apr, [facility] [address] [id number] [place] [address]- 9632 Mar, [facility] [address] [id number] [place] [address]- 6378 Mar, [facility] [address] [id number] [place] [address]- 0429 Feb, [facility] [address] [id number] [place] [address]- 3398 Feb, [facility] [address] [id number] [place] [address]- 3675 Feb, [facility] [address] [id number] [place] [address]- 8661 Feb, [facility] [address] [id number] [place] [address]- 7389 Feb, [facility] [address] [id number] [place] [address]- 9192 Feb, [facility] [address] [id number] [place] [address]- 1660 Feb, [facility] [address] [id number] [place] [address]- 6264 31 Jan, 2012 [facility] [address] [id number] [place] [address]- 5244 31 Jan, 2012 [facility] [address] [id number] [place] [address]- 1337 Jan, [facility] [address] [id number] [place] [address]- 2236 17 Jan, 2012 [facility] [address] [id number] [place] [address]- 0187 17 Jan, 2012 [facility] [address] [id number] [place] [address] Jan, [facility] [facility] [address] [id number] [place] Jan, [facility] [address] [id number] [place] [address] 10 Jan, 2012 [facility] [address] [id number] [place] [address]- 5507 10 Jan, 2012 [facility] [address] [id number] [place] [address]- 5608 Jan, [facility] [address] [id number] [place] [address]- 8916 Jan, [facility] [address] [id number] [place] [address]- 9506 Dec, [facility] [address] [id number] [place] [address]- 5927 Dec, [facility] [address] [id number] [place] [address]- 6151 Dec, [facility] [address] [id number] [place] [address]- 6554 Dec, [facility] [address] [id number] [place] [address]- 0731 Nov, [facility] [address] [id number] [place] [address]- 5168 Nov, [facility] [address] [id number] [place] [address]- 2564 Nov, [facility] [place] [facility] [address] [id number] [place] [address]- 2764 27 Oct, 2011 [facility] [address] [id number] [place] [address]- 2544 24 Sep2011 [facility] [address] [id number] [place] [address]- 2542 21 Sep, 2011 [facility] [address] [id number] [place] [address]- 9126 10 Sep2011 [facility] [address] [id number] [place] [address]- 2506 07 Sep2011 [facility] [address] [id number] [place] [address]- 9662 Oct, [facility] [address] [id number] [place] [address]- 6628 Oct, [facility] [address] [id number] [place] [address]- 4780 Sep, [facility] [address] [id number] [place] [address]- 9153 Sep, [facility] [address] [id number] [place] [address]- 0675 Sep, [facility] [address] [id number] [place] [address]- 5116 Sep, [facility] [address] [id number] [place] [address]- 0728 Sep, [facility] [address] [id number] [place] [address]- 8267 Aug, [facility] [address] [id number] [place] [address]- 2084 Aug, [facility] [address] [id number] [place] [address]- 4522 Aug, [facility] [place] [address] [id number] [place] [address]- 7499 Aug, [facility] [address] [id number] [place] [address]- 7174 Aug, [facility] [place] [address] [id number] [place] [address]- 7710 Aug, [facility] [place] [address] [id number] [place] [address]- 0705 Aug, [facility] [place] [address] [id number] [place] [address]- 5170 Jul, [facility] [place] [address] [id number] [place] [address]- 3843 Jul, [facility] [place] [facility] [address] [id number] [place] [address]- 1534 Jul, [facility] [address] [id number] [place] [address]- 6229 Jul, [facility] [address] [id number] [place] [address]- 1016 Jul, [facility] [place] [address] [id number] [place] [address]- 8275 Jul, [facility] [place] [facility] [address] [id number] [place] [address]- 6778 07 Jul, 2011 [facility] [address] [id number] [place] [address]- 9229 Jul, [facility] [place] [facility] [address] [id number] [place] [address]- 1365 Jul, [facility] [address] [id number] [place] [address]- 9158 June, [facility] [address] [id number] [place] [address]- 8460 June, [facility] [place] [facility] [address] [id number] [place] [address]- 9973 June, [facility] [place] [address] [id number] [place] [address]- 5573 June, [facility] [address] [id number] [place] [address]- 0688 June, [facility] [place] [facility] [address] [id number] [place] [address]- 8348 June, [facility] [facility] [address] [id number] [place] [address]- 9900 June, [facility] [place] [facility] [address] [id number] [place] [address]- 2951 June, [facility] [place] [facility] [address] [id number] [place] [address]- 0803 May, [facility] [place] [facility] [address] [id number] [place] [address]- 1104 23 May, 2011 [facility] [place] [facility] [address] [id number] [place] [address]- 2636 May, [facility] [place] [facility] [address] [id number] [place] [address]- 6636 May, [facility] [place] [facility] [address] [id number] [place] [address]- 2486 May, [facility] [place] [facility] [address] [id number] [place] [address] 2548 May, [facility] [place] [facility] [address] [id number] [place] [address]- 0384 May, [facility] [place] [facility] [address] [id number] [place] [address]- 5795 Apr, [facility] [place] [facility] [address] [id number] [place] [address]- 1742 Apr, [facility] [place] [facility] [address] [id number] [place] [address]- 9408 Apr, [facility] [place] [facility] [address] [id number] [place] [address]- 4245 Apr, [facility] [place] [facility] [address] [id number] [place] [address]- 3281 Apr, [facility] [place] [facility] [address] [id number] [place] [address]- 7924 Apr, [facility] [place] [facility] [address] [id number] [place] [address]- 6300 Apr, [facility] [place] [facility] [address] [id number] [place] [address]- 8695 Mar, [facility] [place] [facility] [address] [id number] [place] [address]- 2317 Mar, [facility] [place] [facility] [address] [id number] [place] [address]- 6822 14 Mar, 2011 [facility] [address] [id number] [place] [address]- 0271 Mar, [facility] [address] [id number] [place] [address]- 8756 Mar, [facility] [address] [id number] [place] [address]- 0036 Mar, [facility] [address] [id number] [place] [address]- 1251 Mar, [facility] [address] [id number] [place] [address]- 6883 Feb, [facility] [address] [id number] [place] [address]- 5577 Feb, [facility] [address] [id number] [place] [address]- 4240 Feb, [facility] [address] [id number] [place] [address]- 5749 Feb, [facility] [address] [id number] [place] [address]- 8121 Feb, [facility] [address] [facility] [id number] [place] [address]- 9113 Feb, [facility] [address] [id number], [place] [address]- 2660 Feb, [facility] [address] [id number], [place] [address]- 7355 Feb, [facility] [address] [id number] [place] [address]- 4817 Feb, [facility] [address] [id number] [place] [address]- 8724 Feb, [facility] [address] [id number] [place] [address]- 8673 Jan, [facility] [place] [facility] [address] [id number] [place] [address]- 9495 Jan, [facility] [place] [facility] [address] [id number] [place] [address]- 8966 Jan, [facility] [place] [facility] [address] [id number] [place] [address]- 2546 Jan, [facility] [place] [facility] [address] [id number] [place] [address]- 0926 Jan, [facility] [place] [facility] [address] [id number] [place] [address]- 4812 Jan, [facility] [place] [facility] [address] [id number] [place] [address]- 0496 Jan, [facility] [place] [facility] [address] [id number] [place] [address]- 9374 Jan, [facility] [place] [facility] [address] [id number] [place] [address]- 7404 Jan, [facility] [place] [facility] [address] [id number] [place] [address]- 0755 Jan, [facility] [place] [facility] [address] [id number] [place] [address]- 7160 Jan, [facility] [place] [facility] [address] [id number] [place] [address]- 4104 17 Dec, 2010 [facility] [place] [facility] [address] [id number] [place] [address]- 6492 17 Dec, 2010 [facility] [place] [facility] [address] [id number] [place] [address]- 4634 17 Dec, 2010 [facility] [place] [facility] [address] [id number] [place] [address]- 1458 16 Dec, 2010 [facility] [place] [facility] [address] [id number] [place] [address]- 4686 14 Dec, 2010 [facility] [place] [facility] [address] [id number] [place] [address]- 4670 Dec, [facility] [place] [facility] [address] [id number] [place] [address]- 7762 Dec, [facility] [place] [facility] [address] [id number] [place] [address]- 6985 Dec, [facility] [place] [facility] [address] [id number] [place] [address]- 1163 Dec, [facility] [place] [facility] [address] [id number] [place] [address]- 2621 Nov, [facility] [place] [facility] [address] [id number] [place] [address]- 6897 Nov, [facility] [place] [facility] [address] [id number] [place] [address]- 4669 Nov, [facility] [place] [facility] [address] [id number] [place] [address]- 9552 Nov, [facility] [place] [facility] [address] [id number] [place] [address]- 3881 Nov, [facility] [place] [facility] [address] [id number] [place] [address]- 4956 Nov, [facility] [place] [facility] [address] [id number] [place] [address]- 0657 Aug, [facility] [place] [facility] [address] [id number], [place] [address]- 8029 14 Feb, 2010 [facility] [place] [facility] [address] [id number], [place] [address]- 4505 14 Jan, 2010 [facility] [place] [facility] [address] [id number] [place] [address] Jan, [facility] [place] [facility] [address] [id number], [place] [address] Jan, [facility] [place] [facility] [address] [id number] [place] [address] Jan, [facility] [place] [facility] [address] [id number] [address] Jan, [facility] [id number], [place] [address] Dec, [facility] [id number], [place] [address] Dec, [facility] [id number] [address] Dec, [facility] [id number], [place] [address] Dec, [facility] [id number] [place] [address] Nov, [facility] [id number], [place] [address] Nov, [facility] [id number], [place] [address] Nov, IMMUNIZATIONS No Known Immunizations SOCIAL HISTORY Never Assessed REASON FOR VISIT rash getting better but still has some on chest KPaarianne mA , consult on increasing pain medication KPaarianne MA , needs referral for more physical therapy kPaarianne MA , also having urinary problems - has the feeling but can not produce anything [facility]Page MA PLAN OF CARE Activity Details Follow Up 3 Months Reason: VITAL SIGNS Height 68 in 2017-12-18 Weight 254 lbs 2017-12-18 Temperature 97.7 degrees Fahrenheit 2017-12-18 Heart Rate 90 bpm 2017-12-18 Respiratory Rate 20 2017-12-18 BMI 38.62 kg/m2 2017-12-18 Blood pressure systolic 116 mmHg 2017-12-18 Blood pressure diastolic 68 mmHg 2017-12-18 MEDICATIONS Medication Instructions Dosage Frequency Start Date End Date Duration Status BD Ultra-Fine Micro Pen Needle 32G X 6 MM as directed Nov, Active Fentanyl 50 MCG/HR Transdermal 48 hrs 1 patch to skin Dec, 30 days Active Aspirin 81 MG Orally Once a day 1 tablet 24h Active Promethazine HCl 25 MG Orally every 12 hrs 1 tablet as needed 12h 30 Active Pantoprazole Sodium 40 mg Orally Once a day 1 tablet 24h 30 days Active Fluoxetine HCl 40 MG TAKE 2 CAPSULES BY MOUTH ONCE DAILY IN THE MORNING 30 Active Klonopin 1 MG Orally 3 times a day 1 tablet 8h 30 days Active Tizanidine HCl 4 MG Orally Three times a day 1 tablet as needed 8h May, Active Furosemide 20 mg Orally Once a day 1 tablet 24h Active Sumatriptan Succinate 100 mg Orally Once a day 1 tablet as needed one time 24h 30 Active Keflex 500 mg Orally 3 times a day 1 capsule 8h Dec, Dec, 5 days Active Lyrica 150 MG Orally 3 times a day 1 capsule 8h 28 days Active Clonidine HCl 0.1 MG Orally twice a day 1 tablet 12h 30 Active Nabumetone 500 MG TAKE 1 TABLET BY MOUTH TWICE DAILY AFTER MEALS 30 Active Saxenda (Dose Escalation) 18 mg/3 mL Subcutaneous Once a day 0.6 mg QD x 7 days, 1.2 mg QD x 7 days, 1.8 mg QD x 7 days, 2.4 mg QD x 7 days, then 3 mg QD ( GOAL) 24h 10 Aug, 2017 Active RESULTS Name Result Date Reference Range UA LONG DIP (IN HOUSE) 2017-12-18 Lot # [id number] Exp date 05/2018 Clarity cloudy Color orange Odor yes GLU neg YOLANDA neg KET neg SG 1.020 BLO nrg pH 5.5 Protein neg URO 1.0 NIT + HELLEN trace Lot # Exp date PROCEDURES Procedure Date Ordered Result Body Site URINALYSIS, AUTO, W/O SCOPE Dec 18, 2017 INSTRUCTIONS MEDICATIONS ADMINISTERED No Known Medications [...]
--- OUTSIDE RECORDS SUMMARY | 2018-01-13 20:31 | XMS REPORT ---
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 Active 898563034 Problem Hypertension I10 Active 71849025 Problem Arthritis M19.90 Active 9663028 Problem 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 Active 06598449 Problem Anxiety F41.9 Active 60694661 Problem Unspecified episodic mood disorder F39 Active 19206111 Problem Left hip pain M25.552 Active 47007084 ALLERGIES No Information ENCOUNTERS Encounter Location Date Diagnosis [facility] [address] [facility] [id number] [address] Dec, [facility] [address] [facility] [id number], [place] [address] Dec, Left hip pain M25.552 ; Dysuria R30.0 ; Anxiety F41.9 and Acute cystitis without hematuria N30.00 [facility] [address], [place] [address] Dec, Unspecified episodic mood disorder F39 [facility] [id number] [place] [address] 87138- 9912 Nov, Arthritis M19.90 [facility] [id number] [place] [address] 53848- 5396 Nov, [facility] [id number] [place] [address] 87712- 3876 Nov, Chronic hepatitis C without hepatic coma B18.2 and Screening for malignant neoplasm of breast Z12.31 [facility] [id number] [place] [address] 87853- 8936 Nov, [facility] [id number] [place] [address] 05114- 3568 Nov, Chronic hepatitis C without hepatic coma B18.2 [facility] [id number] [place] [address] 36486- 3881 Nov, [facility] [id number] [place] [address] 98128- 6878 Nov, Arthritis M19.90 and Unspecified episodic mood disorder F39 [facility] [id number] [place] [address] 05483- 5107 Oct, [facility] [id number] [place] [address] 88451- 2544 Oct, Chronic hepatitis C without hepatic coma B18.2 and Encounter for immunization Z23 [facility] [address], [place] [address] Oct, [facility] [id number] [place] [address] 88527- 0296 Oct, Arthritis M19.90 and Unspecified episodic mood disorder F39 [facility] [id number] [place] [address] 14121- 9960 Sep, Chronic hepatitis C without hepatic coma B18.2 [facility] [id number] [place] [address] 34284- 0736 Sep, Gastroesophageal reflux disease, esophagitis presence not specified K21.9 and Other chronic pain G89.29 [facility] [id number] [place] [address] 93937- 4576 Sep, [facility] [address] 83663- 8247 Sep, [facility] [id number] [place] [address] 85241- 6866 Sep, Chronic hepatitis C without hepatic coma B18.2 [facility] [id number] [place] [address] 42777- 0102 Sep, 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 [facility] [id number] [place] [address] 79745- 3004 Sep, Arthritis M19.90 [facility] [id number] [place] [address] 03139- 6410 Sep, [facility] [id number] [place] [address] 82928- 5043 Sep, Unspecified episodic mood disorder F39 [facility] [id number] [place] [address] 70189- 8947 Aug, [facility] [id number] [place] [address] [id number] Aug, [facility] [id number] [place] [address] 58851- 7958 Aug, Arthritis M19.90 [facility] [id number] [place] [address] 90315- 6338 Aug, [facility] [id number] [place] [address] 16004- 6146 Aug, Obesity (BMI 30.0-34.9) E66.9 ; Unspecified episodic mood disorder F39 and Hypertension I10 [facility] [address], [place] [address] 1843 Aug, Unspecified episodic mood disorder F39 [facility] [id number] [address] 8339 Aug, [facility] [id number] [place] [address] 26039- 0726 Jul, Unspecified episodic mood disorder F39 [facility] [id number] [place] [address] 91786- 3425 Jul, [facility] [id number] [place] [address] 32285- 1014 Jul, Arthritis M19.90 [facility] [id number] [place] [address] 46250- 8283 Jul, Left hip pain M25.552 ; Hypertension I10 ; Other obesity due to excess calories E66.09 and Body mass index (BMI) of 34.0-34.9 in adult Z68.34 [facility] [id number] [place] [address] 14404- 4058 Jul, Unspecified episodic mood disorder F39 [facility] [address], [place] [address] 7269 June, Gastroesophageal reflux disease, esophagitis presence not specified K21.9 [facility] [id number] [address] 5[address] June, [facility] [address], [place] [address] 7970 June, [facility] [id number] [place] [address] 02218- 8865 June, Arthritis M19.90 [facility] [address], [place] [address] 5666 June, [facility] [id number] [address] 3119 June, [facility] [id number] [place] [address] 10163- 4705 June, Unspecified episodic mood disorder F39 [facility] [address], [place] [address] 0211 May, Unspecified episodic mood disorder F39 [facility] [id number] [place] [address] 14936- 6397 May, [facility] [id number] [place] [address] 97532- 4172 May, Arthritis M19.90 [facility] [id number] [place] [address] 21135 -9620 May, Dysuria R30.0 ; Abscess L02.91 and Acute cystitis without hematuria N30.00 [facility] [address] [place] [address] 77529- 4227 May, 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 ; Unspecified episodic mood disorder F39 ; Combined drug dependence excluding opioids, 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 ; Anxiety F41.9 and Other psychoactive substance dependence, 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552 ; Hypertension I10 ; 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, 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 and Unspecified episodic mood disorder F39 [facility] [id number] [place] [address] 13945- 1342 Apr, [facility] [id number] [place] [address] 32890 -1680 Apr, Neck pain M54.2 ; Left hip pain M25.552 and Fall, initial encounter W19.XXXA [facility] [id number] [place] [address] 34234- 6952 Apr, Unspecified episodic mood disorder F39 ; Combined drug dependence excluding opioids, 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 ; Anxiety F41.9 ; Other psychoactive substance dependence, 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 and 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 [facility] [id number] [place] [address] 78660- 3400 Apr, [facility] [id number] [place] [address] 52211- 1571 Apr, Arthritis M19.90 and Unspecified episodic mood disorder F39 [facility] [id number] [place] [address] 10764- 8971 Apr, Unspecified episodic mood disorder F39 [facility] [id number] [place] [address] 88232- 9790 Apr, [facility] [id number] [place] [address] 90946- 7944 Apr, [facility] [id number] [place] [address] 84898- 4209 Apr, Unspecified episodic mood disorder F39 ; Combined drug dependence excluding opioids, 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 ; Anxiety F41.9 ; Other psychoactive substance dependence, 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 and 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 [facility] [id number] [place] [address] 97016- 9258 Mar, Unspecified episodic mood disorder F39 [facility] [id number] [place] [address] 03284- 2123 Mar, Gastroesophageal reflux disease, esophagitis presence not specified K21.9 [facility] [id number] [place] [address] 51015- 9380 Mar, Arthritis M19.90 and Unspecified episodic mood disorder F39 [facility] [id number] [place] [address] 95433- 1936 Feb, [facility] [id number] [place] [address] 94861- 2966 Feb, [facility] [id number] [place] [address] 93311- 7653 Feb, [facility] [id number] [place] [address] 30829- 6359 Feb, Arthritis M19.90 [facility] [id number] [place] [address] 07530- 3658 Feb, Non-pressure chronic ulcer of right calf, 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 ; Unspecified episodic mood disorder F39 and Left hip pain M25.552 [facility] [id number] [place] [address] 84291- 2647 Feb, [facility] [id number] [place] [address] 49456- 8403 Feb, [facility] [id number] [place] [address] 70928- 0092 Jan, Arthritis M19.90 [facility] [id number] [place] [address] 14488- 5359 Jan, Left hip pain M25.552 and Non-pressure chronic ulcer of right calf, 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 [facility] [id number] [place] [address] 99341- 9627 Jan, Chronic hepatitis C without hepatic coma B18.2 [facility] [id number] [place] [address] 41616- 3862 Jan, Encounter for immunization Z23 ; Venous insufficiency ( chronic) (peripheral) I87.2 ; Non-pressure chronic ulcer of unspecified calf limited to breakdown of skin L97.201 and Gastroesophageal reflux disease, esophagitis presence not specified K21.9 [facility] [id number] [place] [address] 97386 2546 Jan, [facility] [id number] [place] [address] 13276- 3416 Jan, Chronic hepatitis C without hepatic coma B18.2 and Encounter for immunization Z23 [facility] [id number] [place] [address] 58092 2546 Jan, Arthritis M19.90 [facility] [address] 52547- 6106 Jan, [facility] [id number] [place] [address] 24555- 6089 Dec, [facility] [id number] [place] [address] 74721- 1222 Dec, Unspecified episodic mood disorder F39 [facility] [id number] [place] [address] 91101 2546 Dec, Arthritis M19.90 [facility] [id number] [place] [address] 93618- 6306 Dec, Arthritis M19.90 [facility] [id number] [place] [address] 32673- 5506 Nov, [facility] [id number] [place] [address] 55193- 2540 Nov, [facility] [id number] [place] [address] 11441- 2546 Nov, Other psychoactive substance dependence, 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 ; 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, 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 and Chronic hepatitis C without hepatic coma B18.2 [facility] [id number] [place] [address] 69114- 4058 Nov, Arthritis M19.90 [facility] [address], [place] [address] Oct, Partial thickness burn of abdomen, initial encounter T21.22XA [facility] [address], [place] [address]- 1548 Oct, [facility] [id number] [place] [address] 59244- 9306 Sep, Arthritis M19.90 [facility] [id number] [place] [address] 75262- 3826 Sep, [facility] [id number] [place] [address] 49911- 1039 Sep, [facility] [id number] [place] [address] 20035- 5359 Sep, Unspecified episodic mood disorder F39 ; Chronic hepatitis C without hepatic coma B18.2 and Left hip pain M25.552 [facility] [id number] [place] [address] 81539- 4453 Sep, Arthritis M19.90 and Left hip pain M25.552 [facility] [id number] [place] [address] 19447- 5733 Aug, [facility] [id number] [place] [address] 75545- 7944 Aug, [facility] [id number] [place] [address] 33624- 8964 Aug, Chronic hepatitis C without hepatic coma B18.2 [facility] [id number] [place] [address] 81730- 1152 Aug, [facility] [id number] [place] [address] 58824- 5625 Aug, Chronic hepatitis C without hepatic coma B18.2 [facility] [id number] [place] [address] 97118- 4958 Aug, 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, 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 [facility] [id number] [place] [address] 15106- 1946 Aug, [facility] [id number] [place] [address] 05454- 7030 Aug, Chronic hepatitis C without hepatic coma B18.2 and Hypertension I10 [facility] [id number] [place] [address] 02396- 3271 Jul, [facility] [id number] [place] [address] 16817- 5562 June, [facility] [id number] [place] [address] 81081- 4904 Apr, Fibromyalgia M79.7 ; Left hip pain M25.552 and Decubitus ulcer of sacral region, stage 1 L89.151 [facility] [id number] [place] [address] 61807- 2712 Apr, [facility] [id number] [place] [address] 71421- 4407 Apr, [facility] [id number] [place] [address] 46176- 0458 Feb, [facility] [id number] [place] [address] 47756- 2552 Dec, Anxiety F41.9 ; Combined drug dependence excluding opioids, 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 and Unspecified episodic mood disorder F39 [facility] [id number] [place] [address] 71922- 7691 Dec, [facility] [id number] [place] [address] 31910- 1358 Nov, [facility] [id number] [place] [address] 46579- 7546 Nov, [facility] [id number] [place] [address] 05198- 2889 Nov, 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 and Anxiety F41.9 [facility] [id number] [place] [address] 93812- 2297 Oct, [facility] [id number] [place] [address] 58778 -5157 14 Oct, 2015 Open wound of left thigh, initial encounter S71.102A [facility] [id number] [place] [address] 20505- 5927 Oct, [facility] [id number] [place] [address] 03149- 2777 Sep, Unspecified episodic mood disorder F39 ; Other disorder of impulse control 312.39 ; Combined drug dependence excluding opioids, 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 and Anxiety F41.9 [facility] [id number] [place] [address] 25435- 7549 Sep, Other disorder of impulse control 312.39 ; Combined drug dependence excluding opioids, 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 ; Anxiety F41.9 and Unspecified episodic mood disorder F39 [facility] [id number] [place] [address] 22525- 9821 Sep, Other chronic pain G89.29 [facility] [id number] [place] [address] 70365- 4212 Sep, [facility] [id number] [place] [address] 91220- 8037 Sep, [facility] [id number] [place] [address] 22227- 2160 Aug, [facility] [id number] [place] [address] 69409- 1711 Aug, [facility] [id number] [place] [address] 16996- 3045 Aug, [facility] [id number] [place] [address] 26666- 5617 Jul, [facility] [id number] [address]- 7128 Jul, [facility] [id number] [place] [address] 34050- 9085 Jul, [facility] [id number] [place] [address] 71723- 2712 Jul, Arthritis M19.90 ; Chronic hepatitis C without hepatic coma B18.2 and Left hip pain M25.552 [facility] [id number] [place] [address] 72800- 6798 Jul, Left knee pain M25.562 [facility] [id number] [place] [address] 09664- 8832 Jul, Combined drug dependence excluding opioids, 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 ; Anxiety F41.9 ; Other disorder of impulse control 312.39 and Unspecified episodic mood disorder F39 [facility] [id number] [place] [address] 58821- 7859 Jul, Left knee pain M25.562 [facility] [id number] [place] [address] 00070- 4828 Jul, Left knee pain M25.562 and Left hip pain M25.552 [place] [id number] [place] [address] 20943- 5564 Jul, [facility] [id number] [place] [address] 16986- 1550 June, [facility] [address] [place] [address] 32866- 9720 June, Combinations of drug dependence excluding opioid type drug, 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 ; Other disorder of impulse control 312.39 ; Unspecified episodic mood disorder F39 and Anxiety F41.9 [facility] [address] [place] [address] 59084- 0489 June, Other fatigue R53.83 ; Headache R51 and Left knee pain M25.562 [facility] [address], [place] [address]- 9552 June, Unspecified episodic mood disorder F39 ; Combinations of drug dependence excluding opioid type drug, 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 ; Other disorder of impulse control 312.39 and Anxiety F41.9 [facility] [address], [place] [address]- 1233 June, Anxiety F41.9 [facility] [id number] [place] [address] 32346- 2575 June, Pain in left knee M25.562 [place] [id number] [place] [address] 80689- 4189 June, Anxiety F41.9 and Combinations of drug dependence excluding opioid type drug, 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 [facility] [id number] [place] [address] 72372- 4740 June, Unspecified episodic mood disorder 296.90 ; Combinations of drug dependence excluding opioid type drug, 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 and Other disorder of impulse control 312.39 [facility] [id number] [place] [address] 35658- 2223 June, Anxiety F41.9 and Unspecified episodic mood disorder 296.90 [facility] [address] [place] [address] 09148- 0561 May, Arthritis M19.90 [facility] [id number] [place] [address] 32686- 2851 May, Arthritis M19.90 [facility] [address] [place] [address] 15986- 2726 May, Anxiety F41.9 ; Combinations of drug dependence excluding opioid type drug, 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 and Other disorder of impulse control 312.39 [facility] [id number], [place] [address] May, Left knee pain M25.562 [facility] [id number] [place] [id number] May, Arthritis M19.90 [facility] [id number] [address] May, [facility] [id number], [place] [address] May, Anxiety F41.9 ; Unspecified episodic mood disorder 296.90 ; Combinations of drug dependence excluding opioid type drug, 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 and Other disorder of impulse control 312.39 [facility] [address] [address], [place] [address] May, Left knee pain M25.562 [facility] [address], [place] [address] May, Left knee pain M25.562 ; Combinations of drug dependence excluding opioid type drug, 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 ; Other disorder of impulse control 312.39 ; Fibromyalgia M79.7 ; Hypertension I10 ; Unspecified episodic mood disorder 296.90 and Left hip pain M25.552 [facility] [id number], [place] [address] May, Unspecified episodic mood disorder 296.90 ; Other disorder of impulse control 312.39 ; Combinations of drug dependence excluding opioid type drug, 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 and Anxiety F41.9 [facility] [id number], [place] [address] May, Left knee pain M25.562 ; Combinations of drug dependence excluding opioid type drug, 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 ; Other disorder of impulse control 312.39 ; Fibromyalgia M79.7 ; Hypertension I10 ; Unspecified episodic mood disorder 296.90 and Left hip pain M25.552 [facility] [id number], [place] [address] May, Anxiety F41.9 ; Unspecified episodic mood disorder 296.90 ; Other disorder of impulse control 312.39 and Combinations of drug dependence excluding opioid type drug, 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 [facility] [id number] [place] [address] 08473- 6025 30 Apr, 2015 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 and 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, implants and grafts, initial encounter T84.82XA [facility] [id number] [place] [address] 79091- 1126 28 Apr, 2015 Anxiety F41.9 ; Unspecified episodic mood disorder 296.90 ; Combinations of drug dependence excluding opioid type drug, 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 and Other disorder of impulse control 312.39 [facility] [id number] [place] [address] 40541- 7127 25 Apr, 2015 Arthritis M19.90 [facility] [id number] [place] [address] 50688- 8703 21 Apr, 2015 Anxiety F41.9 ; Unspecified episodic mood disorder 296.90 ; Combinations of drug dependence excluding opioid type drug, 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 and Other disorder of impulse control 312.39 [facility] [id number] [place] [address] 13127- 1845 17 Apr, 2015 Arthritis M19.90 [facility] [id number] [place] [address] 32549- 3633 15 Apr, 2015 [facility] [id number] [place] [address] 59807- 6191 15 Apr, 2015 [facility] [id number] [place] [address] 49317- 4159 14 Apr, 2015 Unspecified episodic mood disorder 296.90 ; Combinations of drug dependence excluding opioid type drug, 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 ; Other disorder of impulse control 312.39 and Anxiety F41.9 [facility] [id number] [place] [address] 37852 -6030 11 Apr, 2015 Left knee pain M25.562 [facility] [id number] [place] [address] 25065- 4870 11 Apr, 2015 [facility] [id number] [place] [address] 18910- 9788 Mar, Unspecified episodic mood disorder 296.90 ; Anxiety F41.9 ; Other disorder of impulse control 312.39 and Combinations of drug dependence excluding opioid type drug, 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 [address] [id number] [place] [address] 25 Mar, 2015 Hyperpigmentation L81.9 [facility] [id number] [place] [address]841 Mar, Arthritis M19.90 and Anxiety F41.9 [facility] [id number] [place] [address] 07424- 8942 Mar, Unspecified episodic mood disorder F39 ; Combined drug dependence excluding opioids, 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 ; 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 and Anxiety F41.9 [id number] [place] [address] 56241- 1095 12 Mar, 2015 Well woman exam Z01.419 ; Other fatigue R53.83 ; Hot flashes N95.1 ; Depression, unspecified depression type F32.9 and Body mass index (BMI) of 23.0-23.9 in adult Z68.23 [id number] [place] [address] 7525 11 Mar, 2015 Unspecified episodic mood disorder 296.90 ; Other disorder of impulse control 312.39 and Anxiety F41.9 [id number] [place] [address] 76882- 4232 11 Mar, 2015 Well woman exam Z01.419 [...] of breast Z12.39 and Limited mobility Z74.09 [place] [address] 46886- 6520 10 Mar, 2015 [place] [address] 45887- 7724 Mar, [place] [facility] [address] [address]397- 7194 Mar, [address] [address]- 2892 03 Mar, 2015 Other specified complication of internal orthopedic prosthetic devices, implants and grafts, initial encounter T84.89XA ; Fibromyalgia M79.7 ; Hypertension I10 ; Anemia D64.9 ; Insomnia G47.00 ; Anxiety F41.9 ; Arthritis M19.90 and Migraine G43.[address] [address]- 1964 Mar, [address] [address]165- 3540 Feb, [address] [address]- 3501 Feb, Arthritis M19.90 and Anxiety F41.9 [place] [address] 91282- 3276 Feb, [place] [address] 79964- 1766 Feb, [address] [address]- 1152 Feb, [place] [address] 35268- 4949 Feb, [place] [address] 76640- 4975 Feb, Anxiety F41.9 [facility] [id number] [place] [address] 48700- 1352 15 Feb, 2015 [facility] [id number] [place] [address] 74755- 9482 Feb, [facility] [id number] [place] [address] 50212- 0155 Feb, 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 and Fibromyalgia M79.7 [facility] [id number] [place] [address] 79378- 7085 Feb, [facility] [id number] [place] [address] 18118- 4041 Jan, [facility] [id number] [place] [address] 84781- 4821 Jan, [facility] [id number] [place] [address] 75426- 7152 Jan, [facility] [id number] [place] [address] 53356- 3591 24 Jan, 2015 [facility] [id number] [place] [address] 58272- 6321 16 Jan, 2015 [facility] [id number] [place] [address] 36442- 9505 Jan, [facility] [id number] [place] [address] 00234- 4232 Jan, [facility] [address], [place] [address]- 6433 Jan, [facility] [id number] [place] [address] 30850- 9902 Dec, [facility] [address], [place] [address]- 5416 17 Dec, 2014 Left knee pain M25.562 [facility] [id number], [place] [address]- 0774 17 Dec, 2014 Left knee pain M25.562 [facility] [id number] [place] [address] 03828- 3847 16 Dec, 2014 Fibromyalgia M79.7 ; Hypertension I10 and Arthritis M19.90 [facility] [id number], [place] [address]- 6024 Dec, [facility] [id number] [place] [address] 82780- 9024 Dec, [facility] [id number] [place] [address] 87669- 2135 Dec, [facility] [id number] [place] [address] 08651- 5222 Dec, [facility] [id number] [place] [address] 44967- 1432 Nov, [facility] [id number] [place] [address] 32794- 3484 Nov, [facility] [id number] [place] [address] 09474- 5535 Nov, [facility] [id number] [place] [address] 98932- 3757 Nov, Hypertension I10 [facility] [address], [place] [address]- 2841 23 Sep, 2014 [facility] [id number], [place] [address]- 4691 17 Sep, 2014 [facility] [id number] [place] [address] 16191- 1245 04 Sep, 2014 [facility] [id number], [place] [address]- 8575 04 Sep, 2014 [facility] [address], [place] [address]- 0336 03 Sep, 2014 [facility] [address] [facility] [id number], [place] [address]- 0552 Sep, [facility] [address] [id number], [place] [address]- 9501 Sep, [facility] [address] [id number], [place] [address]- 2299 Sep, Hip pain associated with recalled total hip arthroplasty hardware 996.77 [facility] [place] [facility] [address] [id number], [place] [address]- 1994 Sep, [facility] [address] [id number] [place] [address]- 0151 Sep, [facility] [address] [id number], [place] [address]- 9911 Sep, [facility] [address] [facility] [id number], [place] [address]- 9621 Aug, [facility] [address] [id number], [place] [address]- 4399 Jul, [facility] [address] [id number], [place] [address]- 3215 June, [facility] [address] [facility] [id number], [place] [address]- 1520 June, [facility] [place] [facility] [address] [id number], [place] [address]- 0492 June, [facility] [place] [facility] [address] [id number], [place] [address]- 1726 June, [facility] [place] [facility] [address] [id number], [place] [address]- 3992 June, [facility] [place] [facility] [address] [id number], [place] [address]- 2331 June, [facility] [place] [facility] [address] [id number], [place] [address]- 5693 May, [facility] [place] [facility] [address] [id number] [place] [address]- 2016 14 May, 2014 [facility] [place] [facility] [address] [id number] [place] [address]- 8380 13 May, 2014 [facility] [place] [facility] [address] [id number] [place] [address]- 6471 30 Apr, 2014 [facility] [place] [facility] [address] [id number] [place] [address]- 3286 30 Apr, 2014 [facility] [place] [facility] [address] [id number] [place] [address]- 4008 19 Apr, 2014 [facility] [place] [facility] [address] [id number] [place] [address]- 9330 19 Apr, 2014 [facility] [place] [facility] [address] [id number] [place] [address]- 9355 Apr, [facility] [place] [facility] [address] [id number] [place] [address]- 5646 Apr, [facility] [place] [facility] [address] [id number] [place] [address]- 8220 Apr, [facility] [place] [facility] [address] [id number] [place] [address]- 4544 Apr, [facility] [place] [facility] [address] [id number] [place] [address]- 3022 Apr, [facility] [place] [facility] [address] [id number] [place] [address]- 9170 05 Apr, 2014 [facility] [place] [facility] [address] [id number] [place] [address]- 5724 Apr, [facility] [place] [facility] [address] [id number] [place] [address]- 0820 Mar, [facility] [place] [facility] [address] [id number] [place] [address]- 8556 Mar, [facility] [place] [facility] [address] [id number] [place] [address]- 5801 16 Mar, 2014 [facility] [place] [facility] [address] [id number] [place] [address]- 3605 16 Mar, 2014 [facility] [place] [facility] [address] [id number] [place] [address]- 4029 Mar, [facility] [place] [facility] [address] [id number] [place] [address]- 5712 Mar, [facility] [place] [facility] [address] [id number] [place] [address]- 7834 15 Feb, 2014 [facility] [place] [facility] [address] [id number] [place] [address]- 9218 Feb, [facility] [place] [facility] [address] [id number] [place] [address]- 3387 Feb, [facility] [place] [facility] [address] [id number] [place] [address]- 1960 Feb, [facility] [place] [facility] [address] [id number] [place] [address]- 7127 Jan, [facility] [place] [facility] [address] [id number] [place] [address]- 5806 Jan, [facility] [place] [facility] [address] [id number] [place] [address]- 7520 Jan, [facility] [place] [facility] [address] [id number] [place] [address]- 0791 Jan, [facility] [place] [facility] [address] [id number] [place] [address]- 7805 Dec, [facility] [place] [facility] [address] [id number] [place] [address]- 0481 Dec, [facility] [place] [facility] [address] [id number] [place] [address]- 7851 Dec, [facility] [place] [facility] [address] [id number] [place] [address]- 3031 Dec, [facility] [place] [facility] [address] [id number] [place] [address]- 0197 Dec, [facility] [place] [facility] [address] [id number] [place] [address]- 7271 Dec, [facility] [place] [facility] [address] [id number] [place] [address]- 3019 Dec, [facility] [place] [facility] [address] [id number] [place] [address]- 1528 Dec, [facility] [place] [facility] [address] [id number] [place] [address]- 3306 Dec, [facility] [place] [facility] [address] [id number] [place] [address]- 6677 Dec, [facility] [place] [facility] [address] [id number] [place] [address]- 3670 Dec, [facility] [place] [facility] [address] [id number] [place] [address]- 4949 Nov, [facility] [place] [facility] [address] [id number] [place] [address]- 6402 28 Nov, 2013 [facility] [place] [facility] [address] [id number] [place] [address]- 2606 28 Nov, 2013 [facility] [place] [facility] [address] [id number] [place] [address]- 8192 Nov, [facility] [place] [facility] [address] [id number] [place] [address]- 6547 17 Nov, 2013 [facility] [place] [facility] [address] [id number], [place] [address]- 7397 15 Nov, 2013 [facility] [place] [facility] [address] [id number] [place] [address]- 9740 15 Nov, 2013 [facility] [place] [facility] [address] [id number], [place] [address]- 6014 15 Nov, 2013 [facility] [place] [facility] [address] [id number], [place] [address]- 7162 15 Nov, 2013 [facility] [place] [facility] [address] [id number] [place] [address]- 0118 14 Nov, 2013 [facility] [place] [facility] [address] [id number] [place] [address]- 4109 14 Nov, 2013 [facility] [place] [facility] [address] [id number] [place] [address]- 3065 14 Nov, 2013 [facility] [place] [facility] [address] [id number] [place] [address]- 0974 14 Nov, 2013 [facility] [place] [facility] [address] [id number] [place] [address]- 0110 13 Nov, 2013 [facility] [place] [facility] [address] [id number] [place] [address]- 9914 13 Nov, 2013 [facility] [place] [facility] [address] [id number] [place] [address]- 9478 11 Nov, 2013 [facility] [place] [facility] [address] [id number] [place] [address]- 0066 11 Nov, 2013 [facility] [place] [facility] [address] [id number] [place] [address]- 6661 07 Nov, 2013 [facility] [place] [facility] [address] [id number] [place] [address]- 2403 07 Nov, 2013 [facility] [place] [facility] [address] [id number] [place] [address]- 8014 07 Nov, 2013 [facility] [place] [facility] [address] [id number] [place] [address]- 7573 07 Nov, 2013 [facility] [place] [facility] [address] [id number] [place] [address]- 2890 30 Oct, 2013 [facility] [place] [facility] [address] [id number] [place] [address]- 3609 30 Oct, 2013 [facility] [place] [facility] [address] [id number] [place] [address]- 3327 26 Oct, 2013 [facility] [place] [facility] [address] [id number] [place] [address]- 8453 Oct, 2013 [facility] [place] [facility] [address] [id number] [place] [address]- 4732 Oct, 2013 [facility] [place] [facility] [address] [id number] [place] [address]- 0815 22 Oct, 2013 [facility] [place] [facility] [address] [id number] [place] [address]- 2243 18 Oct, 2013 [facility] [place] [facility] [address] [id number] [place] [address]- 4520 18 Oct, 2013 [facility] [place] [facility] [address] [id number] [place] [address]- 3230 Oct, 2013 [facility] [place] [facility] [address] [id number] [place] [address]- 0072 Oct, 2013 [facility] [place] [facility] [address] [id number] [place] [address]- 3235 Oct, 2013 [facility] [place] [facility] [address] [id number] [place] [address]- 2466 Oct, 2013 [facility] [place] [facility] [address] [id number] [place] [address]- 7427 Oct, [facility] [place] [facility] [address] [id number] [place] [address]- 8652 Oct, [facility] [place] [facility] [address] [id number], [place] [address]- 3157 Sep, [facility] [place] [facility] [address] [id number], [place] [address]- 1294 Sep, [facility] [place] [facility] [address] [id number] [place] [address]- 4784 Sep, [facility] [place] [facility] [address] [id number] [place] [address]- 8939 Sep, [facility] [place] [facility] [address] [id number] [place] [address]- 7858 Sep, [facility] [place] [facility] [address] [id number] [place] [address]- 8542 Sep, [facility] [place] [facility] [address] [id number] [place] [address]- 4624 Sep, [facility] [place] [facility] [address] [id number] [place] [address]- 7657 Sep, [facility] [place] [facility] [address] [id number] [place] [address]- 8976 Sep, [facility] [place] [facility] [address] [id number] [place] [address]- 3277 Sep, [facility] [place] [facility] [address] [id number] [place] [address]- 0407 Sep, [facility] [place] [facility] [address] [id number] [place] [address]- 4134 Sep, [facility] [place] [facility] [address] [id number] [place] [address]- 2298 Sep, [facility] [place] [facility] [address] [id number] [place] [address]- 5025 Sep, [facility] [place] [facility] [address] [id number] [place] [address]- 3898 Sep, [facility] [place] [facility] [address] [id number] [place] [address]- 0195 Sep, [facility] [place] [facility] [address] [id number] [place] [address]- 1206 Sep, [facility] [place] [facility] [address] [id number] [place] [address]- 3470 Sep, [facility] [place] [facility] [address] [id number] [place] [address]- 9796 Aug, [facility] [place] [facility] [address] [id number] [place] [address]- 1981 Aug, [facility] [place] [facility] [address] [id number] [place] [address]- 2367 Aug, [facility] [place] [facility] [address] [id number] [place] [address]- 0613 Aug, [facility] [place] [facility] [address] [id number] [place] [address]- 3001 Aug, [facility] [place] [facility] [address] [id number] [place] [address]- 5112 Aug, [facility] [place] [facility] [address] [id number] [place] [address]- 5513 Jul, [facility] [place] [facility] [address] [id number] [place] [address]- 2195 Jul, [facility] [place] [facility] [address] [id number] [place] [address]- 0755 Jul, [facility] [place] [facility] [address] [id number] [place] [address] Jul, [facility] [place] [facility] [address] [id number] [place] [address] June, [facility] [place] [facility] [address] [id number] [place] [address] June, [facility] [place] [facility] [address] [id number] [place] [address] June, [facility] [place] [facility] [address] [id number] [place] [address] June, [facility] [place] [facility] [address] [id number] [place] [address] June, [facility] [place] [facility] [address] [id number] [place] [address] June, [facility] [place] [facility] [address] [id number] [place] [address] June, [facility] [place] [facility] [address] [id number] [place] [address] May, [facility] [place] [facility] [address] [id number] [place] [address] May, [facility] [place] [facility] [address] [id number] [place] [address]- [address] May, [facility] [place] [facility] [address] [id number] [place] [address] May, [facility] [place] [facility] [address] [id number] [place] [address]- [address] May, [facility] [place] [facility] [address] [id number] [place] [address]- [address] May, [facility] [place] [facility] [address] [id number] [place] [address]- [address] Apr, [facility] [place] [facility] [address] [id number] [place] [address]- [address] 31 Apr, 2013 [facility] [place] [facility] [address] [id number] [place] [address]- [address] Apr, [facility] [place] [facility] [address] [id number] [place] [address] Apr, [facility] [place] [facility] [address] [id number] [place] [address]- [address] Apr, [facility] [place] [facility] [address] [id number] [place] [address]- [address] 14 Apr, 2013 [facility] [place] [facility] [address] [id number] [place] [address]- [address] Apr, [facility] [place] [facility] [address] [id number] [place] [address]- [address] 12 Apr, 2013 [facility] [place] [facility] [address] [id number] [place] [address]- [address] 10 Apr, 2013 [facility] [place] [facility] [address] [id number] [place] [address]- [address] 10 Apr, 2013 [facility] [place] [facility] [address] [id number] [place] [address] 04 Apr, 2013 [facility] [place] [facility] [address] [id number] [place] [address]- [address] Apr, [facility] [place] [facility] [address] [id number] [place] [address]- [address] Apr, [facility] [place] [facility] [address] [id number] [place] [address] Apr, [facility] [place] [facility] [address] [id number] [place] [address] Mar, [facility] [place] [facility] [address] [id number] [place] [address] Mar, [facility] [place] [facility] [address] [id number] [place] [address]- [address] Mar, [facility] [place] [facility] [address] [id number] [place] [address] Feb, [facility] [place] [facility] [address] [id number] [place] [address]- [address] Feb, [facility] [place] [facility] [address] [id number] [place] [address]- [address] Feb, [facility] [place] [facility] [address] [id number] [place] [address]- [address] Feb, [facility] [place] [facility] [address] [id number] [place] [address]- [address] Feb, [facility] [place] [facility] [address] [id number] [place] [address]- [address] Feb, [facility] [place] [facility] [address] [id number] [place] [address]- [address] Feb, [facility] [place] [facility] [address] [id number] [place] [address]- [address] Feb, [facility] [place] [facility] [address] [id number] [place] [address]- [address] Feb, [facility] [place] [facility] [address] [id number] [place] [address]- [address] Feb, [facility] [address] [id number] [place] [address]- [address] Jan, [facility] [address] [id number] [place] [address]- [address] Jan, [facility] [address] [id number] [place] [address] Jan, [facility] [address] [id number] [place] [address] Jan, [facility] [address] [id number] [place] [address]- [address] Jan, [facility] [address] [id number] [place] [address]- [address] Jan, [facility] [address] [id number] [place] [address]- [address] Jan, [facility] [address] [id number] [place] [address]- [address] Jan, [facility] [address] [address] [id number] [place] [address] Jan, [facility] [address] [id number] [place] [address] 6750 Jan, [facility] [address] [id number], [place] [address] 8[address] 17 Jan, 2013 [facility] [place] [facility] [address] [id number], [place] [address] 1491 17 Jan, 2013 [facility] [place] [facility] [address] [id number] [place] [address]- 7805 16 Jan, 2013 [facility] [place] [facility] [address] [id number] [place] [address]- 1205 11 Jan, 2013 [facility] [place] [facility] [address] [id number] [place] [address] Jan, [facility] [place] [facility] [address] [id number] [place] [address] Jan, [facility] [address] [id number] [place] [address]- 7429 Jan, [facility] [place] [facility] [address] [id number] [place] [address]- 2223 Jan, [facility] [address] [id number] [place] [address]- 5115 Jan, [facility] [place] [facility] [address] [id number] [place] [address]- 2672 Jan, [facility] [address] [id number] [place] [address]- 5754 Jan, [facility] [place] [facility] [address] [id number] [place] [address]- 4378 Dec, [facility] [address] [id number] [place] [address]- 5817 Dec, [facility] [place] [facility] [address] [id number] [place] [address]- 3230 Dec, [facility] [place] [facility] [address] [id number] [place] [address]- 4909 Dec, [facility] [address] [facility] [id number] [place] [address]- 3763 Dec, [facility] [place] [facility] [address] [id number] [place] [address]- 8080 Dec, [facility] [place] [facility] [address] [id number], [place] [address]- 2365 Dec, [facility] [place] [facility] [address] [id number] [place] [address]- 3442 Dec, [facility] [place] [facility] [address] [facility] [id number] [place] [address]- 3279 Dec, [facility] [place] [facility] [address] [id number], [place] [address]- 1058 Dec, [facility] [place] [facility] [address] [id number] [place] [address]- 3512 Nov, [facility] [place] [facility] [address] [id number] [place] [address]- 7091 Nov, [facility] [place] [facility] [address] [id number] [place] [address]- 1868 Nov, [facility] [place] [facility] [address] [id number] [place] [address]- 0386 Nov, [facility] [place] [facility] [address] [id number] [place] [address]- 6203 Nov, [facility] [place] [facility] [address] [id number] [place] [address]- 9518 Nov, [facility] [place] [facility] [address] [id number] [place] [address]- 4187 Nov, [facility] [place] [facility] [address] [id number] [place] [address]- 3287 Nov, [facility] [place] [facility] [address] [id number] [place] [address]- 0445 Nov, [facility] [place] [facility] [address] [id number] [place] [address]- 3259 Nov, [facility] [place] [facility] [address] [id number] [place] [address]- 4483 26 Oct, 2012 [facility] [place] [facility] [address] [id number], [place] [address]- 3387 26 Oct, 2012 [facility] [place] [facility] [address] [id number] [place] [address]- 2312 26 Oct, 2012 [facility] [place] [facility] [address] [id number] [place] [address]- 6756 25 Oct, 2012 [facility] [place] [facility] [address] [id number] [place] [address]- 3160 06 Oct, 2012 [facility] [place] [facility] [address] [id number] [place] [address]- 2546 Sep, [facility] [place] [facility] [address] [id number] [place] [address]- 0108 Sep, [facility] [place] [facility] [address] [id number] [place] [address]- 5187 Aug, [facility] [place] [facility] [address] [id number] [place] [address]- 2113 Aug, [facility] [place] [facility] [address] [id number] [place] [address]- 0241 Aug, [facility] [place] [facility] [address] [id number] [place] [address]- 4550 Aug, [facility] [place] [facility] [address] [id number] [place] [address]- 4334 Aug, [facility] [place] [facility] [address] [id number] [place] [address]- 4035 Aug, [facility] [place] [facility] [address] [id number] [place] [address]- 8580 Aug, [facility] [place] [facility] [address] [id number] [place] [address]- 2989 Jul, [facility] [place] [facility] [address] [id number] [place] [address]- 5323 Jul, [facility] [place] [facility] [address] [id number] [place] [address]- 7775 June, [facility] [place] [facility] [address] [id number] [place] [address]- 5705 June, [facility] [place] [facility] [address] [id number] [place] [address]- 9960 June, [facility] [place] [facility] [address] [id number] [place] [address]- 4164 June, [facility] [place] [facility] [address] [id number] [place] [address]- 7072 June, [facility] [place] [facility] [address] [id number] [place] [address]- 8127 June, [facility] [address] [id number] [place] [address]- 4050 June, [facility] [address] [id number] [place] [address] 2546 June, [facility] [address] [id number] [place] [address]- 1216 June, [facility] [address] [id number] [place] [address]- 4216 June, [facility] [address] [id number] [place] [address]- 9864 June, [facility] [address] [id number] [place] [address]- 5486 May, [facility] [address] [id number] [place] [address]- 3257 May, [facility] [address] [id number] [place] [address]- 2579 May, [facility] [address] [id number] [place] [address]- 0060 May, [facility] [address] [id number] [place] [address]- 4613 Apr, [facility] [address] [id number] [place] [address]- 3161 Apr, [facility] [address] [id number] [place] [address]- 2547 Apr, [facility] [address] [id number] [place] [address]- 0506 Mar, [facility] [address] [id number] [place] [address]- 2546 Mar, [facility] [address] [id number] [place] [address]- 8335 Feb, [facility] [address] [id number] [place] [address]- 6740 28 Feb, 2012 [facility] [place] [facility] [address] [id number] [place] [address]- 7534 Feb, [facility] [place] [facility] [address] [id number] [place] [address]- 2183 Feb, [facility] [place] [facility] [address] [id number] [place] [address]- 3249 16 Feb, 2012 [facility] [address] [id number] [place] [address]- 0909 14 Feb, 2012 [facility] [address] [id number] [place] [address]- 7023 08 Feb, 2012 [facility] [address] [id number] [place] [address]- 6690 31 Jan, 2012 [facility] [address] [id number] [place] [address]- 8381 31 Jan, 2012 [facility] [place] [facility] [address] [id number] [place] [address]- 1452 Jan, [facility] [place] [facility] [address] [id number] [place] [address]- 8110 17 Jan, 2012 [facility] [place] [facility] [address] [id number] [place] [address]- 4365 17 Jan, 2012 [facility] [place] [facility] [address] [id number] [place] [address]- 0042 11 Jan, 2012 [facility] [place] [facility] [address] [id number] [place] [address]- 2636 11 Jan, 2012 [facility] [place] [facility] [address] [id number] [place] [address]- 1293 10 Jan, 2012 [facility] [place] [facility] [address] [id number] [place] 10 Jan, 2012 [facility] [place] [facility] [address] [id number] [place] [address]- 7833 Jan, [facility] [place] [facility] [address] [id number] [place] [address]- 6887 Jan, [facility] [place] [facility] [address] [id number] [place] [address]- 6222 Dec, [facility] [place] [facility] [address] [id number] [place] [address]- 2846 Dec, [facility] [place] [facility] [address] [id number] [place] [address]- 9669 Dec, [facility] [place] [facility] [address] [id number] [place] [address]- 7202 Dec, [facility] [place] [facility] [address] [id number] [place] [address]- 2352 Nov, [facility] [place] [facility] [address] [id number] [place] [address]- 2862 Nov, [facility] [place] [facility] [address] [id number] [place] [address]- 0553 08 Nov, 2011 [facility] [place] [facility] [address] [id number] [place] [address]- 2924 27 Oct, 2011 [facility] [place] [facility] [address] [facility] [id number] [place] [address]- 6775 24 Sep2011 [facility] [place] [facility] [address] [id number] [place] [address]- 5233 21 Sep, 2011 [facility] [place] [facility] [address] [id number] [place] [address]- 254 10 Sep, 2011 [facility] [place] [facility] [address] [id number] [place] [address]- 8825 07 Sep, 2011 [facility] [place] [facility] [address] [facility] [id number] [place] [address]- 8496 04 Sep, 2011 [facility] [place] [facility] [address] [facility] [id number] [place] [address]- 6376 04 Sep, 2011 [facility] [place] [facility] [address] [id number] [place] [address]- 5888 Sep, [facility] [place] [facility] [address] [id number] [place] [address]- 2976 Sep, [facility] [place] [facility] [address] [id number] [place] [address]- 3566 Sep, [facility] [place] [facility] [address] [id number] [place] [address]- 7933 Sep, [facility] [place] [facility] [address] [id number] [place] [address]- 0346 Sep, [facility] [place] [facility] [address] [id number] [place] [address]- 6328 Aug, [facility] [place] [facility] [address] [id number] [place] [address]- 4291 Aug, [facility] [place] [facility] [address] [id number] [place] [address]- 0994 Aug, [facility] [place] [facility] [address] [id number] [place] [address]- 6257 Aug, [facility] [place] [facility] [address] [id number] [place] [address]- 3939 Aug, [facility] [place] [facility] [address] [id number] [place] [address]- 4937 Aug, [facility] [place] [facility] [address] [id number] [place] [address]- 7812 Aug, [facility] [place] [facility] [address] [id number] [place] [address]- 3167 Jul, [facility] [place] [facility] [address] [id number] [place] [address]- 3575 Jul, [facility] [place] [facility] [address] [id number] [place] [address]- 8265 Jul, [facility] [place] [facility] [address] [id number] [place] [address]- 4378 Jul, [facility] [place] [facility] [address] [id number] [place] [address]- 3814 Jul, [facility] [place] [facility] [address] [id number] [place] [address]- 9436 Jul, [facility] [place] [facility] [address] [id number] [place] [address]- 4826 Jul, [facility] [place] [facility] [address] [id number] [place] [address]- 2344 Jul, [facility] [place] [facility] [address] [id number] [place] [address]- 2920 Jul, [facility] [place] [facility] [address] [id number] [place] [address]- 1560 June, [facility] [place] [facility] [address] [id number] [place] [address]- 4591 June, [facility] [place] [facility] [address] [id number] [place] [address]- 2414 June, [facility] [place] [facility] [address] [id number] [place] [address]- 2720 June, [facility] [place] [facility] [address] [id number] [place] [address]- 1996 June, [facility] [place] [facility] [address] [id number] [place] [address]- 6010 June, [facility] [place] [facility] [address] [id number] [place] [address]- 0148 June, [facility] [place] [facility] [address] [id number] [place] [address]- 4415 June, [facility] [place] [facility] [address] [id number] [place] [address]- 9234 May, [facility] [place] [facility] [address] [id number] [place] [address]- 1283 May, [facility] [place] [facility] [address] [id number] [place] [address]- 5756 20 May, 2011 [facility] [address] [id number] [place] [address]- 4536 19 May, 2011 [facility] [place] [facility] [address] [id number] [place] [address] 2546 16 May, 2011 [facility] [address] [id number] [place] [address]- 0226 16 May, 2011 [facility] [address] [id number] [place] [address] 2546 02 May, 2011 [facility] [address] [id number] [place] [address]- 5133 27 Apr, 2011 [facility] [address] [id number] [place] [address]- 0036 Apr, [facility] [address] [id number] [place] [address]- 1506 Apr, [facility] [address] [id number] [place] [address]- 8485 19 Apr, 2011 [facility] [place] [facility] [address] [id number] [place] [address]- 6960 Apr, [facility] [address] [id number] [place] [address]- 2760 06 Apr, 2011 [facility] [place] [facility] [address] [id number] [place] [address]- 7956 Apr, [facility] [place] [facility] [address] [id number] [place] [address]- 0046 20 Mar, 2011 [facility] [place] [facility] [address] [id number] [place] [address]- 9216 20 Mar, 2011 [facility] [place] [facility] [address] [id number] [place] [address]- 8666 14 Mar, 2011 [facility] [place] [facility] [address] [id number] [place] [address]- 2502 Mar, [facility] [address] [id number] [place] [address]- 3865 Mar, [facility] [place] [facility] [address] [id number] [place] [address]- 8576 Mar, [facility] [place] [facility] [address] [id number] [place] [address]- 5826 Mar, [facility] [place] [facility] [address] [id number] [place] [address]- 5996 Feb, [facility] [place] [facility] [address] [id number] [place] [address]- 8237 Feb, [facility] [place] [facility] [address] [id number] [place] [address]- 6066 Feb, [facility] [place] [facility] [address] [id number] [place] [address]- 0816 Feb, [facility] [place] [facility] [address] [id number] [place] [address]- 1557 Feb, [facility] [place] [facility] [address] [id number] [place] [address]- 4350 Feb, [facility] [place] [facility] [address] [id number] [place] [address]- 2595 Feb, [facility] [place] [facility] [address] [id number] [place] [address]- 4326 Feb, [facility] [place] [facility] [address] [id number], [place] [address]- 8943 Feb, [facility] [place] [facility] [address] [id number] [place] [address]- 9226 Feb, [facility] [place] [facility] [address] [id number] [place] [address]- 3316 Jan, [facility] [place] [facility] [address] [id number] [place] [address]- 0426 Jan, [facility] [place] [facility] [address] [id number] [place] [address]- 6011 Jan, [facility] [place] [facility] [address] [id number] [place] [address]- 9156 Jan, [facility] [place] [facility] [address] [id number] [place] [address]- 7596 Jan, [facility] [place] [facility] [address] [id number] [place] [address]- 7059 Jan, [facility] [place] [facility] [address] [id number] [place] [address]- 7757 15 Jan, 2011 [facility] [place] [facility] [address] [id number] [place] [address]- 0099 15 Jan, 2011 [facility] [place] [facility] [address] [id number] [place] [address]- 8329 Jan, [facility] [place] [facility] [address] [id number] [place] [address]- 0324 Jan, [facility] [place] [facility] [address] [id number] [place] [address]- 9225 Jan, [facility] [place] [facility] [address] [id number] [place] [address]- 2285 17 Dec, 2010 [facility] [place] [facility] [address] [id number] [place] [address]- 7846 17 Dec, 2010 [facility] [place] [facility] [address] [id number] [place] [address]- 9872 17 Dec, 2010 [facility] [place] [facility] [address] [id number] [place] [address]- 8022 16 Dec, 2010 [facility] [place] [facility] [address] [id number] [place] [address]- 4744 14 Dec, 2010 [facility] [place] [facility] [address] [id number] [place] [address]- 7733 09 Dec, 2010 [facility] [place] [facility] [address] [id number] [place] [address]- 6129 Dec, [facility] [place] [facility] [address] [id number] [place] [address]- 7367 Dec, [facility] [place] [facility] [address] [id number] [place] [address]- 3763 Dec, [facility] [place] [facility] [address] [id number] [place] [address]- 9890 Nov, [facility] [place] [facility] [address] [id number] [place] [address]- 1356 Nov, [facility] [place] [facility] [address] [id number] [place] [address]- 7771 Nov, [facility] [place] [facility] [address] [id number] [place] [address]- 1645 Nov, [facility] [place] [facility] [address] [id number] [place] [address]- 8225 Nov, [facility] [place] [facility] [address] [id number] [place] [address] Nov, [facility] [place] [facility] [address] [id number] [place] [address] Aug, [facility] [place] [facility] [address] [id number] [place] [address] Feb, [facility] [place] [facility] [address] [id number] [place] [address] 14 Jan, 2010 [facility] [place] [facility] [address] [id number] [place] [address] Jan, [facility] [place] [facility] [address] [id number] [place] [address] Jan, [facility] [place] [facility] [address] [id number] [place] [address] Jan, [facility] [place] [facility] [address] [id number] [place] [address] Jan, [facility] [place] [facility] [address] [id number] [place] [address] Dec, [facility] [address] [id number] [address] Dec, [facility] [address] [id number] [address] Dec, [facility] [address] [id number], [place] [address] Dec, [facility] [address] [id number] [address] Nov, [facility] [address] [id number] [address] Nov, [facility] [address] [id number], [place] [address] Nov, IMMUNIZATIONS No Known Immunizations SOCIAL HISTORY Never Assessed REASON FOR VISIT Request another PT referral PLAN OF CARE VITAL SIGNS MEDICATIONS Unknown [...]
--- OUTSIDE RECORDS SUMMARY | 2018-01-13 20:32 | XMS REPORT ---
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 [id number] [address] Dec, [facility] [address] [facility] [id number] [address] Dec, [facility] [place] [address] [facility] [id number] [address] Dec, Unspecified episodic mood disorder F39 [facility] [id number] [address] Nov, Arthritis M19.90 [facility] [place] [id number] [place] [address] 17411 2546 Nov, [facility] [place] [id number] [place] [address] 65086- 0066 Nov, Chronic hepatitis C without hepatic coma B18.2 and Screening for malignant neoplasm of breast Z12.31 [facility] [address] [id number] [address] 4609 Nov, [facility] [id number] [place] [address] 38541- 3876 Nov, Chronic hepatitis C without hepatic coma B18.2 [facility] [place] [id number] [place] [address] 51066- 4995 Nov, [facility] [place] [id number] [place] [address] 16390- 6263 Nov, Arthritis M19.90 and Unspecified episodic mood disorder F39 [facility] [place] [id number] [place] [address] 96225- 8906 Oct, [facility] [place] [id number] [place] [address] 26936- 6550 Oct, Chronic hepatitis C without hepatic coma B18.2 and Encounter for immunization Z23 [facility] [place] [id number] [address] 2548 Oct, [facility] [id number] [place] [address] 56061- 2546 Oct, Arthritis M19.90 and Unspecified episodic mood disorder F39 [facility] [place] [address] [id number] [address] 2546 Sep, Chronic hepatitis C without hepatic coma B18.2 [facility] [place] [id number] [place] [address] 62257- 4496 Sep, Gastroesophageal reflux disease, esophagitis presence not specified K21.9 and Other chronic pain G89.29 [facility] [place] [id number] [place] [address] 86288- 9899 Sep, [facility] [place] [id number] [place] [address] 57941- 2436 Sep, [facility] [place] [id number] [place] [address] 24643- 4209 Sep, Chronic hepatitis C without hepatic coma B18.2 [facility] [place] [id number] [place] [address] 47543- 2823 Sep, 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 [facility] [id number] [place] [address] 49262- 1111 Sep, Arthritis M19.90 [facility] [id number] [place] [address] 88518- 3823 Sep, [facility] [id number] [place] [address] 48527- 1222 Sep, Unspecified episodic mood disorder F39 [facility] [place] [id number] [place] [address] 57373- 7886 Aug, [facility] [id number] [place] [address] [id number] Aug, [facility] [place] [id number] [place] [address] 86666- 6630 Aug, Arthritis M19.90 [facility] [place] [id number] [place] [address] 06980- 8489 Aug, [facility] [id number] [place] [address] 03842- 0140 Aug, Obesity (BMI 30.0-34.9) E66.9 ; Unspecified episodic mood disorder F39 and Hypertension I10 [facility] [place] [id number] [place] [address] [place] [address]- 0404 Aug, Unspecified episodic mood disorder F39 [facility] [place] [id number] [address]- 8306 Aug, [facility] [place] [id number] [address]- 3713 Jul, Unspecified episodic mood disorder F39 [facility] [id number] [place] [address] 17026- 6280 Jul, [facility] [address] [id number] [address]- 2203 Jul, Arthritis M19.90 [facility] [id number] [place] [address] 27354- 9356 Jul, Left hip pain M25.552 ; Hypertension I10 ; Other obesity due to excess calories E66.09 and Body mass index (BMI) of 34.0-34.9 in adult Z68.34 [facility] [place] [id number] [address]- 3556 Jul, Unspecified episodic mood disorder F39 [facility] [id number] [address]- 6476 June, Gastroesophageal reflux disease, esophagitis presence not specified K21.9 [facility] [place] [id number] [address]- 3956 June, [facility] [place] [address] [id number] [address]- 7191 June, [facility] [place] [id number] [address]- 6965 June, Arthritis M19.90 [facility] [place] [id number] [address]- 7457 June, [facility] [place] [id number] [address]- 6615 June, [facility] [address] [id number] [address]- 4005 June, Unspecified episodic mood disorder F39 [facility] [place] [id number] [place] [address] 48686- 6079 May, Unspecified episodic mood disorder F39 [facility] [place] [id number] [place] [address] 40142- 6029 May, [facility] [id number] [place] [address] 10157- 6781 May, Arthritis M19.90 [facility] [id number] [place] [address] 87521 -9315 May, Dysuria R30.0 ; Abscess L02.91 and Acute cystitis without hematuria N30.00 [facility] [id number] [place] [address] 74558- 3032 May, 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 ; Unspecified episodic mood disorder F39 ; Combined drug dependence excluding opioids, 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 ; Anxiety F41.9 and Other psychoactive substance dependence, 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 [facility] [place] [id number] [place] [address] 45645- 7720 May, [facility] [id number] [place] [address] 12610- 3733 May, 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 ; Unspecified episodic mood disorder F39 ; Combined drug dependence excluding opioids, 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 ; Other psychoactive substance dependence, 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 and Anxiety F41.9 [facility] [id number] [place] [address] 47100- 6410 May, Other chronic pain G89.29 ; Left hip pain M25.552 ; Hypertension I10 ; 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, 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 and Unspecified episodic mood disorder F39 [facility] [id number] [address]- 9500 Apr, [facility] [id number] [place] [address] 97145 -9726 Apr, Neck pain M54.2 ; Left hip pain M25.552 and Fall, initial encounter W19.XXXA [facility] [place] [id number] [place] [address] 02825- 7209 Apr, Unspecified episodic mood disorder F39 ; Combined drug dependence excluding opioids, 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 ; Anxiety F41.9 ; Other psychoactive substance dependence, 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 and 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 [facility] [place] [id number] [place] [address] 02617- 1039 Apr, [facility] [id number] [place] [address] 57695- 7649 Apr, Arthritis M19.90 and Unspecified episodic mood disorder F39 [facility] [place] [id number] [place] [address] 94365- 8883 Apr, Unspecified episodic mood disorder F39 [facility] [place] [id number] [place] [address] 03832- 5769 Apr, [facility] [place] [id number] [place] [address] 43330- 3746 08 Apr, 2017 [facility] [place] [id number] [place] [address] 78965- 7444 Apr, Unspecified episodic mood disorder F39 ; Combined drug dependence excluding opioids, 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 ; Anxiety F41.9 ; Other psychoactive substance dependence, 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 and 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 [facility] [place] [id number] [place] [address] 58569- 9212 Mar, Unspecified episodic mood disorder F39 [facility] [place] [id number] [place] [address] 36893- 8918 Mar, Gastroesophageal reflux disease, esophagitis presence not specified K21.9 [facility] [place] [id number] [place] [address] 83522- 5459 Mar, Arthritis M19.90 and Unspecified episodic mood disorder F39 [place] [id number] [place] [address] 67104- 4739 Feb, [facility] [id number] [place] [address] 72759- 9821 Feb, [place] [id number] [place] [address] 02599- 7519 Feb, [facility] [id number] [place] [address] 86537- 5396 Feb, Arthritis M19.90 [place] [id number] [place] [address] 22461- 1497 Feb, Non-pressure chronic ulcer of right calf, 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 ; Unspecified episodic mood disorder F39 and Left hip pain M25.552 [place] [id number] [place] [address] 71228- 1990 Feb, [place] [id number] [place] [address] 04692- 1225 Feb, [place] [id number] [place] [address] 66835- 5227 Jan, Arthritis M19.90 [place] [id number] [place] [address] 18178- 0714 Jan, Left hip pain M25.552 and Non-pressure chronic ulcer of right calf, 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 [place] [id number] [place] [address] 16596- 6304 Jan, Chronic hepatitis C without hepatic coma B18.2 [place] [id number] [place] [address] 91441- 7367 Jan, Encounter for immunization Z23 ; Venous insufficiency ( chronic) (peripheral) I87.2 ; Non-pressure chronic ulcer of unspecified calf limited to breakdown of skin L97.201 and Gastroesophageal reflux disease, esophagitis presence not specified K21.9 [facility] [place] [id number] [place] [address] 95576- 3093 Jan, [facility] [place] [id number] [place] [address] 99342- 8096 Jan, Chronic hepatitis C without hepatic coma B18.2 and Encounter for immunization Z23 [facility] [place] [id number] [place] [address] 92973- 8628 Jan, Arthritis M19.90 [facility] [place] [id number] [place] [address] 98822- 3892 Jan, [facility] [id number] [place] [address] 50297- 6725 Dec, [facility] [id number] [place] [address] 47954- 8138 Dec, Unspecified episodic mood disorder F39 [facility] [place] [id number] [place] [address] 51158- 5918 Dec, Arthritis M19.90 [facility] [place] [id number] [place] [address] 31524- 6151 Dec, Arthritis M19.90 [facility] [place] [id number] [place] [address] 97524- 5050 Nov, [facility] [place] [id number] [place] [address] 62372- 1962 Nov, [facility] [place] [id number] [place] [address] 50218- 6780 Nov, Other psychoactive substance dependence, 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 ; 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, 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 and Chronic hepatitis C without hepatic coma B18.2 [facility] [place] [id number] [place] [address] 73960- 8222 Nov, Arthritis M19.90 [facility] [id number] [place] [address] 11776 -4464 Oct, Partial thickness burn of abdomen, initial encounter T21.22XA [facility] [place] [id number] [place] [address] 87730- 0563 Oct, [facility] [place] [id number] [place] [address] 54025- 7432 Sep, Arthritis M19.90 [facility] [place] [id number] [place] [address] 46337- 8980 Sep, [facility] [place] [id number] [place] [address] 14128- 1613 Sep, [facility] [place] [id number] [place] [address] 95715- 6648 Sep, Unspecified episodic mood disorder F39 ; Chronic hepatitis C without hepatic coma B18.2 and Left hip pain M25.552 [facility] [place] [id number] [place] [address] 93521- 1005 Sep, Arthritis M19.90 and Left hip pain M25.552 [facility] [place] [id number] [place] [address] 13546- 0294 Aug, [facility] [place] [id number] [place] [address] 05230- 5980 Aug, [facility] [place] [address] [address]- 0824 Aug, Chronic hepatitis C without hepatic coma B18.2 [facility] [id number] [address]- 4481 Aug, [facility] [id number] [place] [address] 30995- 7059 Aug, Chronic hepatitis C without hepatic coma B18.2 [facility] [place] [id number] [address]- 2833 Aug, 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, 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 [facility] [place] [id number] [place] [address] 43547- 0881 Aug, [facility] [id number] [place] [address] 06417- 9162 Aug, Chronic hepatitis C without hepatic coma B18.2 and Hypertension I10 [facility] [place] [id number] [place] [address] 50512- 2601 Jul, [facility] [place] [id number] [place] [address] 04229- 4906 June, [facility] [id number] [place] [address] 11848- 0662 Apr, Fibromyalgia M79.7 ; Left hip pain M25.552 and Decubitus ulcer of sacral region, stage 1 L89.151 [facility] [place] [id number] [place] [address] 16915- [phone] Apr, [facility] [place] [id number] [place] [address] [phone]- [phone] Apr, [facility] [place] [id number] [place] [address] 27501- 4466 Feb, [facility] [place] [id number] [place] [address] [id number]- 1621 Dec, Anxiety F41.9 ; Combined drug dependence excluding opioids, 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 and Unspecified episodic mood disorder F39 [facility] [place] [id number] [place] [address] 14985- 8003 Dec, [facility] [place] [id number] [place] [address] 34874- 5643 Nov, [facility] [place] [id number] [place] [address] 29991- 8531 Nov, [facility] [place] [id number] [place] [address] 98786- 2188 10 Nov, 2015 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 and Anxiety F41.9 [facility] [place] [id number] [place] [address] 72434- 4610 Oct, [facility] [id number] [place] [address] [id number] -[phone] Oct, Open wound of left thigh, initial encounter S71.102A [facility] [place] [id number] [place] [address] [phone]- 6838 Oct, [facility] [place] [id number] [place] [address] [id number]- 6678 Sep, Unspecified episodic mood disorder F39 ; Other disorder of impulse control 312.39 ; Combined drug dependence excluding opioids, 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 and Anxiety F41.9 [facility] [place] [id number] [place] [address] 91356- 4691 Sep, Other disorder of impulse control 312.39 ; Combined drug dependence excluding opioids, 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 ; Anxiety F41.9 and Unspecified episodic mood disorder F39 [facility] [place] [id number] [place] [address] 82592- 4088 Sep, Other chronic pain G89.29 [facility] [place] [id number] [place] [address] 29504- 3657 Sep, [facility] [place] [id number] [place] [address] [id number]- [phone] Sep, [facility] [place] [id number] [place] [address] 89213- 3089 Aug, [facility], [place] [id number] [place] [address] 06929- 4401 Aug, [facility] [place] [id number] [place] [address] 74460- 4761 Aug, [facility] [place] [id number] [place] [address] 80856- 9480 Jul, [facility] [place] [id number] [place] [address] 77303- 1903 Jul, [facility] [place] [id number] [place] [address] 97622- 2122 Jul, [facility] [place] [id number] [place] [address] 046597- 1516 17 Jul, 2015 Arthritis M19.90 ; Chronic hepatitis C without hepatic coma B18.2 and Left hip pain M25.552 [facility] [place] [id number] [place] [address] 93442- 7323 Jul, Left knee pain M25.562 [facility] [place] [id number] [place] [address] 48039- 2037 Jul, Combined drug dependence excluding opioids, 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 ; Anxiety F41.9 ; Other disorder of impulse control 312.39 and Unspecified episodic mood disorder F39 [facility] [place] [id number] [place] [address] 60324- 6105 Jul, Left knee pain M25.562 [facility] [place] [address] 64955- 9792 Jul, Left knee pain M25.562 and Left hip pain M25.552 [place] [facility] [id number] [place] [address] 61404- 5731 Jul, [facility] [place] [id number] [place] [address] 79954- 9839 June, [facility] [place] [id number] [place] [address] 6647 June, Combinations of drug dependence excluding opioid type drug, 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 ; Other disorder of impulse control 312.39 ; Unspecified episodic mood disorder F39 and Anxiety F41.9 [facility] [place] [id number] [place] [address] 67793- 2931 June, Other fatigue R53.83 ; Headache R51 and Left knee pain M25.562 [facility] [place] [id number] [place] [address] 20304- 7063 June, Unspecified episodic mood disorder F39 ; Combinations of drug dependence excluding opioid type drug, 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 ; Other disorder of impulse control 312.39 and Anxiety F41.9 [facility] [place] [id number] [place] [address] 91411- 7699 June, Anxiety F41.9 [facility] [place] [id number] [place] [address] 37203- 9172 June, Pain in left knee M25.562 [facility] [place] [id number] [place] [address] 22575- 9438 June, Anxiety F41.9 and Combinations of drug dependence excluding opioid type drug, 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 [place] [id number] [place] [address] 86623- 2426 June, Unspecified episodic mood disorder 296.90 ; Combinations of drug dependence excluding opioid type drug, 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 and Other disorder of impulse control 312.39 [facility] [place] [id number] [place] [address] 61357- 2163 June, Anxiety F41.9 and Unspecified episodic mood disorder 296.90 [facility] [place] [id number] [place] [address] 32400- 2673 May, Arthritis M19.90 [facility] [place] [id number] [place] [address] 96210- 8075 May, Arthritis M19.90 [facility] [place] [id number] [place] [address] 61374- 3687 May, Anxiety F41.9 ; Combinations of drug dependence excluding opioid type drug, 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 and Other disorder of impulse control 312.39 [facility] [place] [id number] [place] [address] 54204- 4024 May, Left knee pain M25.562 [facility] [place] [id number] [place] [address] 94731- 8193 May, Arthritis M19.90 [facility] [place] [id number] [address]- 9745 May, [address] [id number] [place] [address] 70704- 1691 May, Anxiety F41.9 ; Unspecified episodic mood disorder 296.90 ; Combinations of drug dependence excluding opioid type drug, 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 and Other disorder of impulse control 312.39 [place] [id number] [place] [address] 28503- 6361 May, Left knee pain M25.562 [address] [id number] [place] [address] 78651- 3295 May, Left knee pain M25.562 ; Combinations of drug dependence excluding opioid type drug, 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 ; Other disorder of impulse control 312.39 ; Fibromyalgia M79.7 ; Hypertension I10 ; Unspecified episodic mood disorder 296.90 and Left hip pain M25.552 [place] [id number] [place] [address] 32830- 5652 May, Unspecified episodic mood disorder 296.90 ; Other disorder of impulse control 312.39 ; Combinations of drug dependence excluding opioid type drug, 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 and Anxiety F41.9 [address] [id number] [place] [address] 47837- 4375 May, Left knee pain M25.562 ; Combinations of drug dependence excluding opioid type drug, 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 ; Other disorder of impulse control 312.39 ; Fibromyalgia M79.7 ; Hypertension I10 ; Unspecified episodic mood disorder 296.90 and Left hip pain M25.552 [address] [id number] [place] [address] 69321- 2244 May, Anxiety F41.9 ; Unspecified episodic mood disorder 296.90 ; Other disorder of impulse control 312.39 and Combinations of drug dependence excluding opioid type drug, 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 [address] [id number] [address]- 6757 Apr, 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 and 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, implants and grafts, initial encounter T84.82XA [facility] [place] [id number] [place] [address] 77463- 0765 28 Apr, 2015 Anxiety F41.9 ; Unspecified episodic mood disorder 296.90 ; Combinations of drug dependence excluding opioid type drug, 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 and Other disorder of impulse control 312.39 [facility] [place] [id number] [place] [address] 72168- 3707 25 Apr, 2015 Arthritis M19.90 [facility] [place] [id number] [place] [address] 98531- 5466 Apr, Anxiety F41.9 ; Unspecified episodic mood disorder 296.90 ; Combinations of drug dependence excluding opioid type drug, 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 and Other disorder of impulse control 312.39 [facility] [place] [id number] [place] [address] 97339- 1617 17 Apr, 2015 Arthritis M19.90 [facility] [place] [id number] [place] [address] 77581- 8020 15 Apr, 2015 [facility] [place] [id number] [place] [address] 03502- 3093 15 Apr, 2015 [facility] [place] [id number] [place] [address] 40539- 8007 14 Apr, 2015 Unspecified episodic mood disorder 296.90 ; Combinations of drug dependence excluding opioid type drug, 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 ; Other disorder of impulse control 312.39 and Anxiety F41.9 [facility] [id number] [place] [address] 63681 -7590 11 Apr, 2015 Left knee pain M25.562 [facility] [place] [id number] [place] [address] 66701- 5600 Apr, [facility] [place] [id number] [place] [address] 30354- 1861 Mar, Unspecified episodic mood disorder 296.90 ; Anxiety F41.9 ; Other disorder of impulse control 312.39 and Combinations of drug dependence excluding opioid type drug, 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 [address] [facility] [id number] [place] [address]- 100 Mar, Hyperpigmentation L81.9 [address] [id number] [place] [address]- 417 Mar, Arthritis M19.90 and Anxiety F41.9 [place] [address]- 5589 Mar, Unspecified episodic mood disorder F39 ; Combined drug dependence excluding opioids, 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 ; 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 and Anxiety F41.9 [address] [id number] [place] [address]- 5665 12 Mar, 2015 Well woman exam Z01.419 ; Other fatigue R53.83 ; Hot flashes N95.1 ; Depression, unspecified depression type F32.9 and Body mass index (BMI) of 23.0-23.9 in adult Z68.23 [id number] [place] [address] 11902- 8859 11 Mar, 2015 Unspecified episodic mood disorder 296.90 ; Other disorder of impulse control 312.39 and Anxiety F41.9 [address] [id number] [place] [address] 38924- 9582 11 Mar, 2015 Well woman exam Z01.419 [...] of breast Z12.39 and Limited mobility Z74.09 [address] [address] 80625- 6113 Mar, [facility] [place] [address] 87977- 7127 Mar, [address] 85196- 9633 Mar, [address] [address] 23134- 9965 Mar, Other specified complication of internal orthopedic prosthetic devices, implants and grafts, initial encounter T84.89XA ; Fibromyalgia M79.7 ; Hypertension I10 ; Anemia D64.9 ; Insomnia G47.00 ; Anxiety F41.9 ; Arthritis M19.90 and Migraine G43.909 [address] [address] 93997- 9354 Mar, [address] [place] [address] 14497- 7451 Feb, [address] [address] 61361- 6244 Feb, Arthritis M19.90 and Anxiety F41.9 [address] [place] [address] 25882- 3845 Feb, [address] [address] 86004- 0134 Feb, [address] [address] 34706- 7942 Feb, [address] [place] 54514- 6745 Feb, [address] [address] 79195- 1277 Feb, Anxiety F41.9 [address] [place] [address]- 9663 15 Feb, 2015 [facility] [place] [id number] [address]- 6920 Feb, [facility] [place] [id number] [place] [address] 95452- 9453 Feb, 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 and Fibromyalgia M79.7 [facility] [place] [id number] [place] [address] 73747- 1232 Feb, [facility] [place] [id number] [place] [address] 885711- 2999 Jan, [facility] [place] [id number] [place] [address] 93558- 2847 Jan, [facility] [place] [id number] [place] [address] 379562- 4996 Jan, [facility] [place] [id number] [place] [address] 02794- 5546 Jan, [facility] [place] [id number] [address]- 9583 Jan, [facility] [place] [id number] [place] [address] 35020- 9363 Jan, [facility] [place] [id number] 3992 Jan, [facility] [place] [id number] [address]- 7241 Jan, [facility] [place] [id number] [address]- 0288 Dec, [facility] [place] [id number] [place] [address] 44471- 0686 Dec, Left knee pain M25.562 [facility] [place] [address] [address]- 5646 Dec, Left knee pain M25.562 [facility] [place] [address] [address]- 6148 16 Dec, 2014 Fibromyalgia M79.7 ; Hypertension I10 and Arthritis M19.90 [facility] [id number] [place] [address] 39518- 3619 Dec, [facility] [id number] [place] [address] 10493- 3555 Dec, [facility] [id number] [place] [address] 07150- 2052 Dec, [facility] [id number] [place] [address], [place] [address]- 1503 Dec, [facility] [id number] [place] [address] 26073- 8412 Nov, [facility] [id number] [place] [address] 31692- 2309 Nov, [facility] [id number] [place] [address] 63282- 5449 Nov, [facility] [id number] [place] [address] 34641- 7228 Nov, Hypertension I10 [facility] [id number] [address]- 8597 23 Oct, 2014 [facility] [address] [address]- 4683 17 Oct, 2014 [facility] [address] [address]- 5103 04 Oct, 2014 [facility] [id number] [place] [address] 70454- 2856 04 Oct, 2014 [facility] [id number] [address]- 8217 03 Oct, 2014 [facility] [id number] [address]- 5243 Sep, [facility] [address] [id number] [place] [address]- 5540 Sep, [facility] [address] [id number] [address]- 0147 Sep, Hip pain associated with recalled total hip arthroplasty hardware 996.77 [facility] [place] [facility] [address] [id number] [place] [address]- 6142 Sep, [facility] [address] [id number] [address]- 6895 Sep, [facility] [address] [id number] [place] [address]- 0422 Sep, [facility] [address] [id number] [address]- 6214 Aug, [facility] [place] [facility] [address] [id number] [address]- 8768 Jul, [facility] [address] [id number] [address]- 7088 June, [facility] [address] [id number] [address]- 9264 June, [facility] [address] [id number] [address]- 6505 June, [facility] [address] [id number] [address]- 9379 June, [facility] [place] [facility] [address] [id number] [address]- 0680 June, [facility] [place] [facility] [address] [id number] [place] [address]- 8342 June, [facility] [place] [facility] [address] [id number] [address]- 5798 May, [facility] [place] [facility] [address] [id number] [address]- 0458 May, [facility] [place] [facility] [address] [id number] [place] [address]- 5054 13 May, 2014 [facility] [place] [facility] [address] [id number] [place] [address]- 6253 30 Apr, 2014 [facility] [place] [facility] [address] [id number] [place] [address]- 0387 30 Apr, 2014 [facility] [place] [facility] [address] [id number] [place] [address]- 1214 Apr, [facility] [place] [facility] [address] [id number] [place] [address]- 9016 Apr, [facility] [place] [facility] [address] [id number] [place] [address]- 5962 Apr, [facility] [place] [facility] [address] [id number] [place] [address]- 2374 Apr, [facility] [place] [facility] [address] [id number] [place] [address]- 6075 Apr, [facility] [place] [facility] [address] [id number] [place] [address]- 8321 Apr, [facility] [place] [facility] [address] [id number] [place] [address]- 3846 Apr, [facility] [place] [facility] [address] [facility] [id number] [place] [address]- 9982 Apr, [facility] [place] [facility] [address] [id number] [place] [address]- 4070 Apr, [facility] [place] [facility] [address] [id number] [place] [address]- 1510 Mar, [facility] [place] [facility] [address] [id number] [place] [address]- 3821 Mar, [facility] [place] [facility] [address] [id number] [place] [address]- 7039 Mar, [facility] [place] [facility] [address] [id number] [place] [address]- 6095 Mar, [facility] [place] [facility] [address] [id number] [place] [address]- 4001 Mar, [facility] [place] [facility] [address] [id number] [place] [address]- 0659 10 Mar, 2014 [facility] [place] [facility] [address] [id number] [place] [address]- 7829 15 Feb, 2014 [facility] [place] [facility] [address] [id number] [place] [address]- 5585 Feb, [facility] [place] [facility] [address] [id number] [place] [address]- 6002 Feb, [facility] [place] [facility] [address] [id number] [place] [address]- 6336 Feb, [facility] [place] [facility] [address] [id number] [place] [address]- 8798 Jan, [facility] [place] [facility] [address] [id number] [place] [address]- 0661 Jan, [facility] [place] [facility] [address] [id number] [place] [address]- 2949 Jan, [facility] [place] [facility] [address] [id number] [place] [address]- 0314 Jan, [facility] [place] [facility] [address] [id number] [place] [address]- 0362 Dec, [facility] [place] [facility] [address] [id number] [address]- 9871 Dec, [facility] [place] [facility] [address] [id number] [place] [address]- 9891 Dec, [facility] [place] [facility] [address] [id number] [place] [address]- 7709 Dec, [facility] [place] [facility] [address] [id number] [place] [address]- 7416 Dec, [facility] [place] [facility] [address] [id number] [place] [address]- 9052 Dec, [facility] [place] [facility] [address] [id number] [place] [address]- 5124 Dec, [facility] [place] [facility] [address] [id number] [place] [address]- 1592 Dec, [facility] [place] [facility] [address] [id number] [place] [address]- 7235 Dec, [facility] [place] [facility] [address] [id number] [place] [address]- 8165 Dec, [facility] [place] [facility] [address] [id number] [place] [address] 07 Dec, 2013 [facility] [place] [facility] [address] [id number] [place] [address] 31 Nov, 2013 [facility] [place] [facility] [address] [id number] [place] [address] 28 Nov, 2013 [facility] [place] [facility] [address] [id number] [place] [address] 28 Nov, 2013 [facility] [place] [facility] [address] [id number] [place] [address] 17 Nov, 2013 [facility] [place] [facility] [address] [facility] [id number] [place] [address] 17 Nov, 2013 [facility] [place] [facility] [address] [id number] [place] [address] 15 Nov, 2013 [facility] [place] [facility] [address] [id number] [place] [address] 2988 15 Nov, 2013 [facility] [place] [facility] [address] [id number] [place] [address] 15 Nov, 2013 [facility] [place] [facility] [address] [id number] [place] [address] 15 Nov, 2013 [facility] [place] [facility] [address] [id number] [place] [address] 14 Nov, 2013 [facility] [place] [facility] [address] [id number] [place] [address] 14 Nov, 2013 [facility] [place] [facility] [address] [id number] [place] [address]247 14 Nov, 2013 [facility] [place] [facility] [address] [id number] [place] [address]- [address]647 14 Nov, 2013 [facility] [place] [facility] [address] [id number] [place] [address]21 13 Nov, 2013 [facility] [place] [facility] [address] [id number] [place] [address] 13 Nov, 2013 [facility] [place] [facility] [address] [id number] [place] [address] 11 Nov, 2013 [facility] [place] [facility] [address] [id number] [place] [address] 11 Nov, 2013 [facility] [place] [facility] [address] [id number] [place] [address]- [address]64 07 Nov, 2013 [facility] [place] [facility] [address] [id number] [place] [address] 07 Nov, 2013 [facility] [place] [facility] [address] [id number] [place] [address]- [address]10 07 Nov, 2013 [facility] [place] [facility] [address] [id number] [place] [address]- 6768 07 Nov, 2013 [facility] [place] [facility] [address] [id number] [place] [address] 6[address] 30 Oct, 2013 [facility] [place] [facility] [address] [id number] [place] [address] 8815 30 Oct, 2013 [facility] [place] [facility] [address] [id number] [place] [address] 26 Oct, 2013 [facility] [place] [facility] [address] [id number] [place] [address]- 3316 26 Oct, 2013 [facility] [place] [facility] [address] [id number] [place] [address] Oct, 2013 [facility] [place] [facility] [address] [id number] [place] [address]284 22 Oct, 2013 [facility] [place] [facility] [address] [id number] [place] [address]676 Oct, 2013 [facility] [place] [facility] [address] [id number] [place] [address]274 Oct, 2013 [facility] [place] [facility] [address] [id number] [place] [address] Oct, 2013 [facility] [place] [facility] [address] [id number] [place] [address]179 Oct, [facility] [place] [facility] [address] [id number] [place] [address] Oct, [facility] [place] [facility] [address] [id number] [place] [address] 2009 Oct, [facility] [place] [facility] [address] [id number] [place] [address] Oct, [facility] [place] [facility] [address] [id number] [place] [address] Oct, [facility] [place] [facility] [address] [id number] [place] [address] Sep, [facility] [place] [facility] [address] [id number] [place] [address] Sep, [facility] [place] [facility] [address] [id number] [place] [address] Sep, [facility] [place] [facility] [address] [id number] [place] [address] 1628 Sep, [facility] [place] [facility] [address] [id number] [place] [address] 9210 Sep, [facility] [place] [facility] [address] [id number] [place] [address] 1385 Sep, [facility] [place] [facility] [address] [id number] [place] [address] 7894 Sep, [facility] [place] [facility] [address] [id number] [place] [address] 3348 Sep, [facility] [place] [facility] [address] [id number] [place] [address] 0154 Sep, [facility] [place] [facility] [address] [id number] [place] [address] 8088 Sep, [facility] [place] [facility] [address] [id number] [place] [address] 5[address] Sep, [facility] [place] [facility] [address] [id number] [place] [address] 9201 Sep, [facility] [place] [facility] [address] [id number] [place] [address] 9883 Sep, [facility] [place] [facility] [address] [id number] [place] [address] 56[address] Sep, [facility] [place] [facility] [address] [id number] [place] [address]- 6566 Sep, [facility] [place] [facility] [address] [id number] [place] [address]- 5267 Sep, [facility] [place] [facility] [address] [id number] [place] [address]- 5680 Sep, [facility] [place] [facility] [address] [id number] [place] [address]- 5175 Sep, [facility] [place] [facility] [address] [id number] [place] [address]- 6858 Aug, [facility] [place] [facility] [address] [id number] [place] [address]- 8871 Aug, [facility] [place] [facility] [address] [id number] [place] [address]- 2186 Aug, [facility] [place] [facility] [address] [id number] [place] [address]- 6550 Aug, [facility] [place] [facility] [address] [id number] [place] [address]- 0076 Aug, [facility] [place] [facility] [address] [id number] [place] [address]- 1657 Aug, [facility] [place] [facility] [address] [id number] [place] [address]- 0795 Jul, [facility] [place] [facility] [address] [id number] [place] [address]- 8903 Jul, [facility] [place] [facility] [address] [id number] [place] [address]- 6278 Jul, [facility] [place] [facility] [address] [id number] [place] [address]- 6423 Jul, [facility] [place] [facility] [address] [id number] [place] [address]- 0080 June, [facility] [place] [facility] [address] [id number] [place] [address]- 4946 June, [facility] [place] [facility] [address] [id number] [place] [address]- 9766 June, [facility] [place] [facility] [address] [id number] [place] [address]- 8593 June, [facility] [place] [facility] [address] [id number] [place] [address]- 5487 June, [facility] [place] [facility] [address] [id number] [place] [address]- 1594 June, [facility] [place] [facility] [address] [id number] [place] [address]- 4553 June, [facility] [place] [facility] [address] [id number] [place] [address]- 0026 May, [facility] [place] [facility] [address] [id number] [place] [address] May, [facility] [place] [facility] [address] [id number] [place] [address]- 9299 May, [facility] [place] [facility] [address] [id number] [place] [address]- 3566 May, [facility] [place] [facility] [address] [id number] [place] [address]- 3056 May, [facility] [place] [facility] [address] [id number] [place] [address]- 1086 May, [facility] [place] [facility] [address] [id number] [place] [address]- 0958 Apr, [facility] [place] [facility] [address] [id number] [place] [address]- 8194 31 Apr, 2013 [facility] [place] [facility] [address] [id number] [place] [address]- 3710 Apr, [facility] [place] [facility] [address] [id number] [place] [address]- 7426 Apr, [facility] [place] [facility] [address] [id number] [place] [address]- 3150 Apr, [facility] [place] [facility] [address] [id number] [place] [address]- 3578 Apr, [facility] [place] [facility] [address] [id number] [place] [address]- 9464 Apr, [facility] [place] [facility] [address] [id number] [place] [address]- 1815 Apr, [facility] [place] [facility] [address] [id number] [place] [address]- 9769 10 Apr, 2013 [facility] [place] [facility] [address] [id number] [place] [address]- 1750 10 Apr, 2013 [facility] [place] [facility] [address] [id number] [place] [address]- 3366 04 Apr, 2013 [facility] [place] [facility] [address] [id number] [place] [address]- 9616 Apr, [facility] [place] [facility] [address] [id number] [place] [address]- 7752 Apr, [facility] [place] [facility] [address] [id number] [place] [address] Apr, [facility] [place] [facility] [address] [id number] [place] [address]- 3706 Mar, [facility] [place] [facility] [address] [id number] [place] [address]- 8186 Mar, [facility] [place] [facility] [address] [id number] [place] [address]- 2268 Mar, [facility] [place] [facility] [address] [id number] [place] [address]- 8214 Feb, [facility] [place] [facility] [address] [id number] [place] [address]- 4958 Feb, [facility] [place] [facility] [address] [id number] [place] [address]- 7133 Feb, [facility] [place] [facility] [address] [id number] [place] [address]- 3460 Feb, [facility] [place] [facility] [address] [id number] [place] [address]- 4226 Feb, [facility] [place] [facility] [address] [id number] [place] [address]- 4586 Feb, [facility] [place] [facility] [address] [id number] [place] [address]- 1804 Feb, [facility] [place] [facility] [address] [id number] [place] [address]- 0789 Feb, [facility] [place] [facility] [address] [id number] [place] [address]- 7593 Feb, [facility] [place] [facility] [address] [id number] [place] [address]- 1256 Feb, [facility] [place] [facility] [address] [id number] [place] [address]- 8939 Jan, [facility] [address] [id number] [place] [address]- 7002 Jan, [facility] [address] [id number] [place] [address]- 0026 Jan, [facility] [address] [facility] [id number] [place] [address]- 5066 Jan, [facility] [place] [facility] [address] [id number] [place] [address]- 6836 Jan, [facility] [address] [id number] [place] [address]- 7496 Jan, [facility] [address] [id number] [place] Jan, [facility] [address] [id number] [place] [address]- 8785 Jan, [facility] [place] [facility] [address] [id number] [place] [address]- 8504 Jan, [facility] [address] [id number] [place] [address]- 8772 Jan, [facility] [place] [facility] [address] [id number] [place] [address]- 2636 17 Jan, 2013 [facility] [place] [facility] [address] [id number] [place] [address]- 3319 17 Jan, 2013 [facility] [place] [facility] [address] [id number] [place] [address]- 9154 16 Jan, 2013 [facility] [place] [facility] [address] [id number] [place] [address]- 5836 11 Jan, 2013 [facility] [place] [facility] [address] [id number] [place] [address]- 6783 Jan, [facility] [place] [facility] [address] [id number] [place] [address]- 9475 09 Jan, 2013 [facility] [place] [facility] [address] [id number] [place] [address]- 2424 Jan, [facility] [address] [id number] [place] [address]- 3379 Jan, [facility] [place] [facility] [address] [id number] [place] [address]- 9608 Jan, [facility] [address] [id number] [place] [address]- 1325 Jan, [facility] [place] [facility] [address] [id number] [place] [address]- 4683 Jan, [facility] [place] [facility] [address] [id number] [place] [address]- 3193 Dec, [facility] [place] [facility] [address] [id number] [place] [address]- 3228 Dec, [facility] [place] [facility] [address] [id number] [place] [address]- 4293 Dec, [facility] [place] [facility] [address] [id number] [place] [address]- 8715 Dec, [facility] [place] [facility] [address] [id number] [place] [address]- 1923 Dec, [facility] [place] [facility] [address] [facility] [id number] [place] [address]- 3972 Dec, [facility] [place] [facility] [address] [id number] [place] [address]- 2846 Dec, [facility] [place] [facility] [address] [id number] [place] [address]- 5268 Dec, [facility] [place] [facility] [address] [id number] [place] [address]- 6139 Dec, [facility] [place] [facility] [address] [facility] [id number] [place] [address]- 3302 Dec, [facility] [place] [facility] [address] [id number] [place] [address]- 9295 Nov, [facility] [place] [facility] [address] [id number] [place] [address]- 6964 Nov, 2012 [facility] [place] [facility] [address] [id number] [place] [address]- 1384 Nov, [facility] [place] [facility] [address] [id number] [place] [address]- 9897 18 Nov, 2012 [facility] [place] [facility] [address] [id number] [place] [address]- 0852 Nov, [facility] [place] [facility] [address] [id number] [place] [address]- 4096 Nov, [facility] [place] [facility] [address] [id number] [place] [address]- 2613 Nov, [facility] [place] [facility] [address] [id number] [place] [address]- 1508 Nov, [facility] [place] [facility] [address] [id number] [place] [address]- 1000 Nov, [facility] [place] [facility] [address] [id number] [place] [address]- 2248 Nov, [facility] [place] [facility] [address] [id number] [place] [address]- 7854 26 Oct, 2012 [facility] [place] [facility] [address] [id number] [place] [address]- 6984 Oct, 2012 [facility] [place] [facility] [address] [id number] [place] [address]- 8781 26 Oct, 2012 [facility] [place] [facility] [address] [id number] [place] [address]- 1365 25 Oct, 2012 [facility] [place] [facility] [address] [id number] [place] [address]- 9002 06 Oct, 2012 [facility] [place] [facility] [address] [id number] [place] [address]- 7488 Sep, [facility] [place] [facility] [address] [id number] [place] [address]- 5668 Sep, [facility] [address] [id number] [place] [address]- 5246 Aug, [facility] [place] [facility] [address] [id number] [place] [address]85 Aug, [facility] [address] [id number] [place] [address]- 1448 Aug, [facility] [place] [facility] [address] [id number] [place] [address]- 0869 Aug, [facility] [address] [id number] [place] [address]- 7921 Aug, [facility] [address] [id number] [place] [address]- 4590 Aug, [facility] [address] [id number] [place] [address]- 4743 Aug, [facility] [address] [id number] [place] [address]- 1788 Jul, [facility] [address] [id number] [place] [address]- 4528 Jul, [facility] [place] [facility] [address] [id number] [place] [address]- 6310 June, [facility] [address] [id number] [place] [address]- 9608 June, [facility] [place] [facility] [address] [id number] [place] [address]- 8560 June, [facility] [place] [facility] [address] [id number] [place] [address]- 6961 June, [facility] [place] [facility] [address] [id number] [place] [address]- 8166 June, [facility] [place] [facility] [address] [id number] [place] 6226 June, [facility] [place] [facility] [address] [id number] [place] [address] 2546 June, [facility] [address] [id number] [place] [address]- 7866 June, [facility] [address] [id number] [place] [address]- 2546 June, [facility] [address] [id number] [place] [address]- 0396 June, [facility] [address] [id number] [place] [address]- 4246 June, [facility] [address] [id number] [place] [address]- 7452 May, [facility] [address] [id number] [place] [address]- 2972 May, [facility] [address] [id number] [place] [address]- 1751 May, [facility] [address] [id number] [place] [address]- 2128 May, [facility] [address] [id number] [place] [address]- 2335 Apr, [facility] [address] [id number] [place] [address]- 8390 Apr, [facility] [address] [id number] [place] [address]- 2546 Apr, [facility] [address] [id number] [place] [address]- 7978 Mar, [facility] [address] [id number] [place] [address]- 6146 Mar, [facility] [address] [id number] [place] [address]- 2546 Feb, [facility] [address] [id number] [place] [address]- 1153 28 Feb, 2012 [facility] [address] [id number] [place] [address]- 1752 Feb, [facility] [place] [facility] [address] [id number] [place] [address]- 2065 21 Feb, 2012 [facility] [place] [facility] [address] [id number] [place] [address]- 6751 16 Feb, 2012 [facility] [place] [facility] [address] [id number] [place] [address]- 0485 14 Feb, 2012 [facility] [place] [facility] [address] [id number] [place] [address]- 5009 08 Feb, 2012 [facility] [place] [facility] [address] [id number] [place] [address]- 8295 31 Jan, 2012 [facility] [place] [facility] [address] [id number] [place] [address]- 0226 Jan, [facility] [place] [facility] [address] [id number] [place] [address]- 0987 28 Jan, 2012 [facility] [place] [facility] [address] [id number] [place] [address]- 2511 17 Jan, 2012 [facility] [place] [facility] [address] [id number] [place] [address]- 4657 17 Jan, 2012 [facility] [place] [facility] [address] [id number] [place] [address]- 9284 Jan, [facility] [place] [facility] [address] [id number] [place] [address]- 2696 11 Jan, 2012 [facility] [place] [facility] [address] [id number] [place] [address]- 8173 10 Jan, 2012 [facility] [place] [facility] [address] [id number] [place] [address]- 3337 10 Jan, 2012 [facility] [place] [facility] [address] [id number] [place] [address]- 3034 03 Jan, 2012 [facility] [place] [facility] [address] [id number] [place] [address]- 1747 Jan, [facility] [place] [facility] [address] [id number] [place] [address]- 4959 Dec, [facility] [place] [facility] [address] [id number] [place] [address]- 6606 Dec, [facility] [place] [facility] [address] [id number] [place] [address]- 4326 Dec, [facility] [place] [facility] [address] [id number] [place] [address]- 8053 Dec, [facility] [place] [facility] [address] [id number] [place] [address]- 4278 Nov, [facility] [place] [facility] [address] [id number] [place] [address]- 8643 Nov, [facility] [place] [facility] [address] [id number] [place] [address]- 8838 Nov, [facility] [place] [facility] [address] [id number] [place] [address]- 6450 27 Oct, 2011 [facility] [place] [facility] [address] [id number] [place] [address]- 3321 24 Oct, 2011 [facility] [place] [facility] [address] [id number] [place] [address]- 3894 21 Oct, 2011 [facility] [place] [facility] [address] [id number] [place] [address]- 0046 10 Oct, 2011 [facility] [place] [facility] [address] [id number] [place] [address]- 2543 07 Oct, 2011 [facility] [place] [facility] [address] [id number] [place] [address]- 2117 04 Oct, 2011 [facility] [place] [facility] [address] [id number] [place] [address]- 8796 04 Oct, 2011 [facility] [place] [facility] [address] [id number] [place] [address]- 9063 29 Sep, 2011 [facility] [place] [facility] [address] [id number] [place] [address]- 2847 Sep, [facility] [place] [facility] [address] [id number] [place] [address]- 9302 Sep, [facility] [place] [facility] [address] [id number] [place] [address]- 8546 Sep, [facility] [place] [facility] [address] [id number] [place] [address]- 4909 Sep, [facility] [place] [facility] [address] [id number] [place] [address]- 4927 Aug, [facility] [place] [facility] [address] [id number] [place] [address]- 2619 Aug, [facility] [place] [facility] [address] [id number] [place] [address]- 6116 Aug, [facility] [place] [facility] [address] [id number] [place] [address]- 0233 16 Aug, 2011 [facility] [place] [facility] [address] [id number] [place] [address]- 4668 Aug, [facility] [place] [facility] [address] [id number] [place] [address]- 3911 Aug, [facility] [place] [facility] [address] [id number] [place] [address]- 5008 Aug, [facility] [place] [facility] [address] [id number] [place] [address]- 2965 Jul, [facility] [place] [facility] [address] [id number] [place] [address]- 7406 Jul, [facility] [place] [facility] [address] [id number] [place] [address]- 7005 Jul, [facility] [place] [facility] [address] [id number] [place] [address]- 1050 Jul, [facility] [place] [facility] [address] [id number] [place] [address]- 3335 Jul, [facility] [place] [facility] [address] [id number] [place] [address]- 2050 Jul, [facility] [place] [facility] [address] [id number] [place] [address] Jul, [facility] [place] [facility] [address] [id number] [place] [address] Jul, [facility] [place] [facility] [address] [id number] [place] [address] Jul, [facility] [place] [facility] [address] [id number] [place] [address] June, [facility] [place] [facility] [address] [id number] [place] [address] June, [facility] [place] [facility] [address] [id number] [place] [address] June, [facility] [place] [facility] [address] [id number] [place] [address] June, [facility] [place] [facility] [address] [id number] [place] [address] June, [facility] [place] [facility] [address] [id number] [place] [address] June, [facility] [place] [facility] [address] [id number] [place] [address] June, [facility] [place] [facility] [address] [id number] [place] [address] June, [facility] [place] [facility] [address] [id number] [place] [address] May, [facility] [place] [facility] [address] [id number] [place] [address] May, [facility] [place] [facility] [address] [id number] [place] [address] May, [facility] [place] [facility] [address] [id number] [place] [address]67 19 May, 2011 [facility] [address] [id number] [place] [address] 16 May, 2011 [facility] [address] [id number] [place] [address] 16 May, 2011 [facility] [address] [id number] [place] [address] 02 May, 2011 [facility] [address] [id number] [place] [address]- [address] 27 Apr, 2011 [facility] [address] [id number] [place] [address]- [address] 22 Apr, 2011 [facility] [address] [id number] [place] [address]- [address] Apr, [facility] [address] [id number] [place] [address]77 Apr, [facility] [address] [id number] [place] [address]- [address]14 Apr, [facility] [address] [id number] [place] [address]146 06 Apr, 2011 [facility] [address] [id number] [place] [address] Apr, [facility] [place] [facility] [address] [id number] [place] [address] 20 Mar, 2011 [facility] [address] [id number] [place] [address]- [address] 20 Mar, 2011 [facility] [place] [facility] [address] [id number] [place] [address]106 14 Mar, 2011 [facility] [place] [facility] [address] [id number] [place] [address] 1056 13 Mar, 2011 [facility] [place] [facility] [address] [id number] [place] [address] Mar, [facility] [place] [facility] [address] [id number] [place] [address] Mar, [facility] [place] [facility] [address] [id number] [place] [address] 1216 Mar, [facility] [place] [facility] [address] [id number] [place] [address] Feb, [facility] [place] [facility] [address] [id number] [place] [address] 5567 Feb, [facility] [place] [facility] [address] [id number] [place] [address]25 Feb, [facility] [place] [facility] [address] [id number] [place] [address]479 Feb, [facility] [place] [facility] [address] [id number] [place] [address]- 4562 Feb, [facility] [place] [facility] [address] [id number] [place] [address]- [address] Feb, [facility] [place] [facility] [address] [id number] [place] [address]- 48[address] Feb, [facility] [place] [facility] [address] [id number] [place] [address] 8673 Feb, [facility] [place] [facility] [address] [id number] [place] [address]- [address]118 Feb, [facility] [place] [facility] [address] [id number] [place] [address]- 2715 Feb, [facility] [place] [facility] [address] [id number] [place] [address]- 1187 Jan, [facility] [place] [facility] [address] [id number] [place] [address]- 17[address] Jan, [facility] [place] [facility] [address] [id number] [place] [address]- [address] Jan, [facility] [place] [facility] [address] [id number] [place] [address]- [address] 20 Jan, 2011 [facility] [address] [id number] [place] [address]- 77[address] Jan, [facility] [place] [facility] [address] [id number] [place] [address] Jan, [facility] [address] [id number] [place] [address]- 2041 15 Jan, 2011 [facility] [place] [facility] [address] [id number] [place] [address]- 8866 15 Jan, 2011 [facility] [address] [id number] [place] [address]- 1810 Jan, [facility] [address] [id number] [place] [address] 69[address] Jan, [facility] [address] [id number] [place] [address]- [address] Jan, [facility] [address] [id number] [place] [address]607 17 Dec, 2010 [facility] [address] [id number] [place] [address]- [address] 17 Dec, 2010 [facility] [address] [id number] [place] [address]993 17 Dec, 2010 [facility] [place] [facility] [address] [id number] [place] [address]- 8179 16 Dec, 2010 [facility] [place] [facility] [address] [id number] [place] [address] 14 Dec, 2010 [facility] [place] [facility] [address] [id number] [place] [address]- 1254 09 Dec, 2010 [facility] [place] [facility] [address] [id number] [place] [address]- [address] 08 Dec, 2010 [facility] [place] [facility] [address] [id number] [place] [address]- [address]353 Dec, [facility] [place] [facility] [address] [id number] [place] [address]- 0375 Dec, [facility] [place] [facility] [address] [id number] [place] [address]- 7673 Nov, [facility] [place] [facility] [address] [id number] [place] [address]- 0403 Nov, [facility] [place] [facility] [address] [id number] [place] [address]- 9083 Nov, [facility] [place] [facility] [address] [id number] [place] [address] Nov, [facility] [place] [facility] [address] [id number] [place] [address]- 5463 Nov, [facility] [place] [facility] [address] [id number] [place] [address] Nov, [facility] [place] [facility] [address] [id number] [place] [address] Aug, [facility] [place] [facility] [address] [id number] [place] [address] Feb, [facility] [place] [facility] [address] [id number] [place] [address] 14 Jan, 2010 [facility] [place] [facility] [address] [id number] [place] [address] Jan, [facility] [place] [facility] [address] [id number] [address] Jan, [facility] [place] [facility] [address] [id number] [place] [address] Jan, [facility] [place] [facility] [address] [id number] [place] [address] Jan, [facility] [place] [facility] [address] [id number] [place] [address] Dec, [facility] [place] [facility] [address] [id number] [address] Dec[facility] [place] [address] [facility] [id number] [place] [address] Dec, [facility] [place] [address] [id number] [address] Dec, [facility] [place] [address] [facility] [id number] [place] [address] Nov, [facility] [place] [address] [id number] [address] Nov, [facility] [place] [address] [facility] [id number] [place] [address] Nov, IMMUNIZATIONS No Known Immunizations SOCIAL HISTORY Never Assessed REASON FOR VISIT Controlled Med Refill PLAN OF CARE VITAL SIGNS MEDICATIONS Medication Instructions Dosage Frequency Start Date End Date Duration Status Klonopin 1 MG Orally 3 times a day 1 tablet 8h 30 days Active RESULTS No Results PROCEDURES [...]
--- OUTSIDE RECORDS SUMMARY | 2018-01-13 20:33 | XMS REPORT ---
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 [id number] [address] Dec, [facility] [id number] [address] Dec, [facility] [address] [facility] [id number], [place] [address] Nov, Arthritis M19.90 [facility] [address], [place] [address] Nov, [facility] [id number] [place] [address] 09158- 7024 Nov, Chronic hepatitis C without hepatic coma B18.2 and Screening for malignant neoplasm of breast Z12.31 [facility] [id number] [place] [address] 35704- 7276 Nov, [facility] [id number] [place] [address] 25638- 5772 Nov, Chronic hepatitis C without hepatic coma B18.2 [facility] [id number] [place] [address] 23048- 0020 Nov, [facility] [id number] [place] [address] 75193- 5775 Nov, Arthritis M19.90 and Unspecified episodic mood disorder F39 [facility] [id number] [place] [address] 69621- 0608 Oct, [facility] [id number] [place] [address] 28062- 9889 Oct, Chronic hepatitis C without hepatic coma B18.2 and Encounter for immunization Z23 [facility] [id number] [place] [address] 75889- 8015 Oct, [facility] [id number] [place] [address] 50586- 6851 Oct, Arthritis M19.90 and Unspecified episodic mood disorder F39 [facility] [id number] [place] [address] 82014- 7329 Sep, Chronic hepatitis C without hepatic coma B18.2 [facility] [id number] [place] [address] 10220- 2952 Sep, Gastroesophageal reflux disease, esophagitis presence not specified K21.9 and Other chronic pain G89.29 [facility] [address], [place] [address] 7008 Sep, [facility] [id number] [place] [address] 46836- 4808 Sep, [facility] [id number] [address] 4432 Sep, Chronic hepatitis C without hepatic coma B18.2 [facility] [id number] [place] [address] 87774- 3201 Sep, 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 [facility] [id number] [place] [address] 07029- 0448 Sep, Arthritis M19.90 [facility] [id number] [place] [address] 66172- 6141 Sep, [facility] [id number] [place] [address] 04830- 7731 Sep, Unspecified episodic mood disorder F39 [facility] [id number] [place] [address] 58057- 7187 Aug, [facility] [id number] [place] [address] [id number] Aug, [facility] [id number] [place] [address] 73729- 1084 Aug, Arthritis M19.90 [facility] [id number] [place] [address] 22605- 0947 Aug, [facility] [id number] [place] [address] 80411- 9016 Aug, Obesity (BMI 30.0-34.9) E66.9 ; Unspecified episodic mood disorder F39 and Hypertension I10 [facility] [address], [place] [address] 0509 Aug, Unspecified episodic mood disorder F39 [facility] [id number] [address] 6901 Aug, [facility] [address], [place] [address] 2427 Jul, Unspecified episodic mood disorder F39 [facility] [address], [place] [address] 4257 Jul, [facility] [id number] [place] [address] 37208- 8108 Jul, Arthritis M19.90 [facility] [id number] [place] [address] 77681- 4040 Jul, Left hip pain M25.552 ; Hypertension I10 ; Other obesity due to excess calories E66.09 and Body mass index (BMI) of 34.0-34.9 in adult Z68.34 [facility] [address], [place] [address] 1440 Jul, Unspecified episodic mood disorder F39 [facility] [address], [place] [address] 4922 June, Gastroesophageal reflux disease, esophagitis presence not specified K21.9 [facility] [address], [place] [address] 6957 June, [facility] [address], [place] [address] 0162 June, [facility] [address], [place] [address] 0500 June, Arthritis M19.90 [facility] [address], [place] [address] 4595 June, [facility] [id number] [address] 0242 June, [facility] [address], [place] [address] 0285 June, Unspecified episodic mood disorder F39 [facility] [id number] [place] [address] 84518- 8193 May, Unspecified episodic mood disorder F39 [facility] [id number] [place] [address] 24038- 6961 May, [facility] [id number] [place] [address] 25791- 2573 May, Arthritis M19.90 [facility] [id number] [place] [address] 26582 -6858 May, Dysuria R30.0 ; Abscess L02.91 and Acute cystitis without hematuria N30.00 [address] [address] [address]- 0622 May, 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 ; Unspecified episodic mood disorder F39 ; Combined drug dependence excluding opioids, 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 ; Anxiety F41.9 and Other psychoactive substance dependence, 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 [place] [id number] [place] [address] 27443- 6109 May, [facility] [id number] [place] [address] 68718- 5964 May, 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 ; Unspecified episodic mood disorder F39 ; Combined drug dependence excluding opioids, 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 ; Other psychoactive substance dependence, 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 and Anxiety F41.9 [place] [id number] [place] [address] 06978- 8784 May, Other chronic pain G89.29 ; Left hip pain M25.552 ; Hypertension I10 ; 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, 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 and Unspecified episodic mood disorder F39 [facility] [id number] [place] [address] 14727- 3916 Apr, [facility] [id number] [place] [address] 18856 -0948 Apr, Neck pain M54.2 ; Left hip pain M25.552 and Fall, initial encounter W19.XXXA [facility] [id number] [place] [address] 62135- 2294 Apr, Unspecified episodic mood disorder F39 ; Combined drug dependence excluding opioids, 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 ; Anxiety F41.9 ; Other psychoactive substance dependence, 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 and 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 [facility] [id number] [place] [address] 33409- 1164 Apr, [facility] [id number] [place] [address] 92457- 3023 Apr, Arthritis M19.90 and Unspecified episodic mood disorder F39 [facility] [id number] [place] [address] 25305- 0285 Apr, Unspecified episodic mood disorder F39 [facility] [id number] [place] [address] 58323- 0514 Apr, [facility] [id number] [place] [address] 85770- 9466 Apr, [facility] [id number] [place] [address] 37364- 4071 Apr, Unspecified episodic mood disorder F39 ; Combined drug dependence excluding opioids, 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 ; Anxiety F41.9 ; Other psychoactive substance dependence, 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 and 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 [facility] [id number] [place] [address] 79481- 1056 Mar, Unspecified episodic mood disorder F39 [facility] [id number] [place] [address] 87782- 8572 Mar, Gastroesophageal reflux disease, esophagitis presence not specified K21.9 [facility] [id number] [place] [address] 55714- 4877 Mar, Arthritis M19.90 and Unspecified episodic mood disorder F39 [facility] [id number] [place] [address] 95045- 1684 Feb, [place] [id number] [place] [address] 30945- 1028 Feb, [place] [id number] [place] [address] 76963- 4504 Feb, [place] [id number] [place] [address] 97452- 0403 Feb, Arthritis M19.90 [place] [id number] [place] [address] 96140- 4505 Feb, Non-pressure chronic ulcer of right calf, 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 ; Unspecified episodic mood disorder F39 and Left hip pain M25.552 [place] [id number] [place] [address] 59902- 6883 Feb, [place] [id number] [place] [address] 51260- 9492 Feb, [place] [id number] [place] [address] 18492- 9086 Jan, Arthritis M19.90 [address] [id number] [place] [address] 83390- 6609 Jan, Left hip pain M25.552 and Non-pressure chronic ulcer of right calf, 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 [place] [id number] [place] [address] 65428- 9069 Jan, Chronic hepatitis C without hepatic coma B18.2 [place] [id number] [place] [address] 30993- 1621 Jan, Encounter for immunization Z23 ; Venous insufficiency ( chronic) (peripheral) I87.2 ; Non-pressure chronic ulcer of unspecified calf limited to breakdown of skin L97.201 and Gastroesophageal reflux disease, esophagitis presence not specified K21.9 [place] [id number] [place] [address] 95799- 6024 Jan, [facility] [id number] [place] [address] 80910- 4434 Jan, Chronic hepatitis C without hepatic coma B18.2 and Encounter for immunization Z23 [facility] [id number] [place] [address] 00964- 6020 Jan, Arthritis M19.90 [facility] [id number] [place] [address] 08038- 8405 Jan, [facility] [id number] [place] [address] 30938- 6373 Dec, [facility] [id number] [place] [address] 53899- 9578 Dec, Unspecified episodic mood disorder F39 [facility] [id number] [place] [address] 91414- 5750 Dec, Arthritis M19.90 [facility] [id number] [place] [address] 56203- 3586 Dec, Arthritis M19.90 [facility] [id number] [place] [address] 59738- 5348 Nov, [facility] [id number] [place] [address] 30223- 3817 Nov, [facility] [id number] [place] [address] 42170- 4758 Nov, Other psychoactive substance dependence, 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 ; 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, 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 and Chronic hepatitis C without hepatic coma B18.2 [facility] [id number] [place] [address] 14548- 2251 Nov, Arthritis M19.90 [facility] [id number] [place] [address] 35163 -7423 Oct, Partial thickness burn of abdomen, initial encounter T21.22XA [facility] [id number] [place] [address] 93706- 9670 Oct, [facility] [address], [place] [address]- 7681 Sep, Arthritis M19.90 [facility] [address], [place] [address]- 5731 Sep, [facility] [id number] [place] [address] 92965- 7906 Sep, [facility] [id number] [place] [address] 20868- 3127 Sep, Unspecified episodic mood disorder F39 ; Chronic hepatitis C without hepatic coma B18.2 and Left hip pain M25.552 [facility] [id number] [place] [address] 46011- 4338 Sep, Arthritis M19.90 and Left hip pain M25.552 [facility] [id number] [place] [address] 86140- 4621 Aug, [facility] [id number] [place] [address] 82622- 9805 Aug, [facility] [id number] [place] [address] 41042- 7854 Aug, Chronic hepatitis C without hepatic coma B18.2 [facility] [address], [place] [address]- 9961 Aug, [facility] [id number] [place] [address] 78054- 2012 Aug, Chronic hepatitis C without hepatic coma B18.2 [facility] [id number] [place] [address] 14248- 4815 Aug, 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, 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7 ; Left hip pain M25.552 and Decubitus ulcer of sacral region, stage 1 L89.151 [facility] [id number] [place] [address] 31548- 8964 Apr, [facility] [id number] [place] [address] 58182- 5534 Apr, [facility] [id number] [place] [address] 31138- 8757 Feb, [facility] [id number] [place] [address] 93616- 4811 Dec, Anxiety F41.9 ; Combined drug dependence excluding opioids, 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 and Unspecified episodic mood disorder F39 [facility] [id number] [place] [address] 57147- 0167 Dec, [facility] [id number] [place] [address] 94108- 9780 18 Nov, 2015 [facility] [id number] [place] [address] 99291- 9614 Nov, [facility] [id number] [place] [address] 01039- 7802 10 Nov, 2015 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 and Anxiety F41.9 [facility] [id number] [place] [address] 24207- 8692 Oct, [facility] [id number] [place] [address] 85332 -5764 14 Oct, 2015 Open wound of left thigh, initial encounter S71.102A [facility] [id number] [place] [address] 12245- 5296 12 Oct, 2015 [facility] [address], [place] [address]- 0056 Sep, Unspecified episodic mood disorder F39 ; Other disorder of impulse control 312.39 ; Combined drug dependence excluding opioids, 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 and Anxiety F41.9 [facility] [id number] [place] [address] 59843- 7189 Sep, Other disorder of impulse control 312.39 ; Combined drug dependence excluding opioids, 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 ; Anxiety F41.9 and Unspecified episodic mood disorder F39 [facility] [id number] [place] [address] 50410- 7056 Sep, Other chronic pain G89.29 [facility] [id number] [place] [address] 21394- 0266 Sep, [facility] [id number] [place] [address] 60321- 0386 Sep, [facility] [id number] [place] [address] 94906- 9303 Aug, [facility] [address], [place] [address]- 4806 Aug, [facility] [id number] [place] [address] 24155 2540 Aug, [facility] [id number] [place] [address] 72467- 9156 Jul, [facility] [id number] [place] [address] 98585- 9356 Jul, [facility] [address], [place] [address]- 7133 Jul, [facility] [id number] [place] [address] 05430- 3912 17 Jul, 2015 Arthritis M19.90 ; Chronic hepatitis C without hepatic coma B18.2 and Left hip pain M25.552 [facility] [id number] [place] [address] 73925- 3180 Jul, Left knee pain M25.562 [facility] [id number] [place] [address] 55580- 0582 Jul, Combined drug dependence excluding opioids, 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 ; Anxiety F41.9 ; Other disorder of impulse control 312.39 and Unspecified episodic mood disorder F39 [facility] [id number] [place] [address] 98607- 5688 Jul, Left knee pain M25.562 [facility] [id number] [place] [address] 53467- 8600 Jul, Left knee pain M25.562 and Left hip pain M25.552 [facility] [id number] [place] [address] 26457- 3734 Jul, [facility] [id number] [place] [address] 43979- 8096 June, [facility] [id number] [place] [address] 23463- 1184 June, Combinations of drug dependence excluding opioid type drug, 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 ; Other disorder of impulse control 312.39 ; Unspecified episodic mood disorder F39 and Anxiety F41.9 [facility] [id number] [place] [address] 93874- 6450 June, Other fatigue R53.83 ; Headache R51 and Left knee pain M25.562 [facility] [id number] [place] [address] 29088- 7232 June, Unspecified episodic mood disorder F39 ; Combinations of drug dependence excluding opioid type drug, 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 ; Other disorder of impulse control 312.39 and Anxiety F41.9 [facility] [address], [place] [address]- 1129 June, Anxiety F41.9 [facility] [id number] [place] [address] 49051- 3732 June, Pain in left knee M25.562 [facility] [id number] [place] [address] 67430- 5787 June, Anxiety F41.9 and Combinations of drug dependence excluding opioid type drug, 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 [facility] [id number] [place] [address] 69660- 5221 June, Unspecified episodic mood disorder 296.90 ; Combinations of drug dependence excluding opioid type drug, 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 and Other disorder of impulse control 312.39 [facility] [id number] [place] [address] 37052- 5165 June, Anxiety F41.9 and Unspecified episodic mood disorder 296.90 [facility] [id number] [place] [address] 60378- 9742 May, Arthritis M19.90 [facility] [id number] [place] [address] 42447- 6823 May, Arthritis M19.90 [facility] [id number] [place] [address] 86573- 9698 May, Anxiety F41.9 ; Combinations of drug dependence excluding opioid type drug, 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 and Other disorder of impulse control 312.39 [facility] [id number] [place] [address] 78706- 0353 May, Left knee pain M25.562 [facility] [id number] [place] [address] 09422- 7232 May, Arthritis M19.90 [facility] [id number] [place] [address] 02496- 3709 May, [facility] [id number] [place] [address] 23484- 1771 May, Anxiety F41.9 ; Unspecified episodic mood disorder 296.90 ; Combinations of drug dependence excluding opioid type drug, 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 and Other disorder of impulse control 312.39 [id number] [place] [address] 88924- 7233 May, Left knee pain M25.562 [address] [id number] [place] [address] 22327- 4875 May, Left knee pain M25.562 ; Combinations of drug dependence excluding opioid type drug, 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 ; Other disorder of impulse control 312.39 ; Fibromyalgia M79.7 ; Hypertension I10 ; Unspecified episodic mood disorder 296.90 and Left hip pain M25.552 [place] [id number] [place] [address] 59796- 5795 May, Unspecified episodic mood disorder 296.90 ; Other disorder of impulse control 312.39 ; Combinations of drug dependence excluding opioid type drug, 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 and Anxiety F41.9 [place] [id number] [place] [address] 04756- 6749 May, Left knee pain M25.562 ; Combinations of drug dependence excluding opioid type drug, 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 ; Other disorder of impulse control 312.39 ; Fibromyalgia M79.7 ; Hypertension I10 ; Unspecified episodic mood disorder 296.90 and Left hip pain M25.552 [place] [id number] [place] [address] 97811- 2139 May, Anxiety F41.9 ; Unspecified episodic mood disorder 296.90 ; Other disorder of impulse control 312.39 and Combinations of drug dependence excluding opioid type drug, 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 [place] [id number] [place] [address] 15091- 2770 Apr, 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 and 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, implants and grafts, initial encounter T84.82XA [place] [id number] [place] [address] 75459- 6126 Apr, Anxiety F41.9 ; Unspecified episodic mood disorder 296.90 ; Combinations of drug dependence excluding opioid type drug, 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 and Other disorder of impulse control 312.39 [facility] [place] [facility] [id number] [place] [address] 03233- 0540 Apr, Arthritis M19.90 [facility] [place] [facility] [id number] [place] [address] 55202- 9067 Apr, Anxiety F41.9 ; Unspecified episodic mood disorder 296.90 ; Combinations of drug dependence excluding opioid type drug, 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 and Other disorder of impulse control 312.39 [facility] [place] [facility] [address] [id number] [place] [address] 01460- 0959 17 Apr, 2015 Arthritis M19.90 [facility] [place] [facility] [id number] [place] [address] 62646- 4792 15 Apr, 2015 [facility] [place] [facility] [id number] [place] [address] 85184- 6463 15 Apr, 2015 [facility] [place] [facility] [id number] [place] [address] 15490- 1681 14 Apr, 2015 Unspecified episodic mood disorder 296.90 ; Combinations of drug dependence excluding opioid type drug, 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 ; Other disorder of impulse control 312.39 and Anxiety F41.9 [facility] [id number] [place] [address] 35711 -5629 Apr, Left knee pain M25.562 [facility] [place] [facility] [id number] [place] [address] 66731- 0119 Apr, [facility] [place] [facility] [id number] [place] [address] 82271- 0027 29 Mar, 2015 Unspecified episodic mood disorder 296.90 ; Anxiety F41.9 ; Other disorder of impulse control 312.39 and Combinations of drug dependence excluding opioid type drug, 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 [facility] [place] [facility] [id number] [place] [address] 88393- 0056 Mar, Hyperpigmentation L81.9 [place] [address] [address] [id number] [place] [address] 55203- 9122 Mar, Arthritis M19.90 and Anxiety F41.[address] 44776- 3239 Mar, Unspecified episodic mood disorder F39 ; Combined drug dependence excluding opioids, 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 ; 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 and Anxiety F41.[address] 02313- 4429 12 Mar, 2015 Well woman exam Z01.419 ; Other fatigue R53.83 ; Hot flashes N95.1 ; Depression, unspecified depression type F32.9 and Body mass index (BMI) of 23.0-23.9 in adult Z68.[address] 25975- 3487 11 Mar, 2015 Unspecified episodic mood disorder 296.90 ; Other disorder of impulse control 312.39 and Anxiety F41.[address] 29428- 3584 11 Mar, 2015 Well woman exam Z01.419 [...] of breast Z12.39 and Limited mobility Z74.[address] 39923- 1071 Mar, [facility] [facility] [id number] [place] [address] 48064- 4530 Mar, [facility] [place] [facility] [id number] [place] [address] 94863- 1074 Mar, [facility] [place] [facility] [id number] [place] [address] 33776- 0515 Mar, Other specified complication of internal orthopedic prosthetic devices, implants and grafts, initial encounter T84.89XA ; Fibromyalgia M79.7 ; Hypertension I10 ; Anemia D64.9 ; Insomnia G47.00 ; Anxiety F41.9 ; Arthritis M19.90 and Migraine G43.909 [facility] [place] [facility] [id number] [place] [address] 71503- 4739 Mar, [facility] [facility] [address] 25828- 0533 Feb, [facility] [facility] [address] 39131- 4339 Feb, Arthritis M19.90 and Anxiety F41.9 [facility] [place] [facility] [address] 69326- 2309 Feb, [facility] [place] [facility] [address] [address] [id number] [place] [address] 85299- 1778 Feb, [facility] [facility] [address] 00267- 1446 Feb, [facility] [place] [facility] [id number] [place] [address] 56974- 3491 Feb, [facility] [place] [facility] [address] 62514- 1773 Feb, Anxiety F41.9 [facility] [place] [facility] [id number] [place] [address] 26646- 5294 Feb, [facility] [place] [facility] [address] 90243- 6102 Feb, [facility] [place] [facility] [address] [address]- 2395 Feb, 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 and Fibromyalgia M79.7 [facility] [place] [facility] [address] [address]- 1196 Feb, [facility] [place] [facility] [id number] [place] [address] 57419- 5506 Jan, [facility] [place] [facility] [address] [address]- 8022 Jan, [facility] [place] [facility] [id number] [place] [address] 11023- 6009 Jan, [facility] [place] [facility] [address] [address]- 5010 Jan, [facility] [place] [facility] [id number] [place] [address] 41516- 3753 Jan, [facility] [place] [facility] [address] [address]- 7957 Jan, [facility] [place] [facility] [id number] [place] [address] 94590- 6979 Jan, [facility] [place] [facility] [address] 2979 Jan, [facility] [place] [facility] [address] [address]- 1193 Dec, [facility] [place] [facility] [address] [address]- 6200 Dec, Left knee pain M25.562 [facility] [place] [facility] [id number] [place] [address] 945372- 9526 Dec, Left knee pain M25.562 [facility] [place] [facility] [address] [address]- 6844 Dec, Fibromyalgia M79.7 ; Hypertension I10 and Arthritis M19.90 [facility] [address] [id number] [place] [address]- 2810 Dec, [facility] [place] [facility] [address] [id number] [place] [address]- 6455 Dec, [facility] [address] [facility] [id number] [place] [address]- 5287 Dec, [facility] [place] [facility] [id number] [place] [address], [place] [address]- 6714 Dec, [facility] [place] [facility] [address] [facility] [id number] [place] [address]- 2403 Nov, [facility] [place] [facility] [address] [facility] [id number] [place] [address], [place] [address]- 2398 Nov, [facility] [address] [place] [id number] [place] [address], [place] [address]- 3965 Nov, [facility] [address] [place] [id number] [place] [address] 17732- 5416 Nov, Hypertension I[facility] [address] [id number] [place] [address]- 2352 23 Sep, 2014 [facility] [id number] [place] [address]- 3017 17 Sep, 2014 [facility] [place] [facility] [address] [address]- 1604 04 Sep, 2014 [facility] [place] [facility] [address] [facility] [id number], [place] [address]- 0190 04 Sep, 2014 [facility] [place] [facility] [address] [facility] [id number] [place] [address]- 4199 03 Oct, 2014 [facility] [place] [facility] [address] [facility] [id number], [place] [address]- 7534 Sep, [facility] [place] [facility] [address] [id number] [place] [address]- 3177 Sep, [facility] [place] [facility] [address] [id number], [place] [address]- 2013 Sep, Hip pain associated with recalled total hip arthroplasty hardware 996.77 [facility] [address] [id number] [place] [address]- 7805 Sep, [facility] [address] [id number] [place] 4085 Sep, [facility] [address] [id number] [place] [address]- 3997 Sep, [facility] [address] [id number] [place] [address]- 2654 Aug, [facility] [address] [id number] [place] [address]- 0162 Jul, [facility] [address] [facility] [id number], [place] [address]- 0426 June, [facility] [address] [facility] [id number], [place] [address]- 1371 June, [facility] [address] [facility] [id number], [place] [address]- 4906 June, [facility] [address] [id number] [address]- 5687 June, [facility] [address] [facility] [id number], [place] [address]- 2464 June, [facility] [address] [id number], [place] [address]- 9850 June, [facility] [place] [facility] [address] [id number], [place] [address]- 3225 May, [facility] [place] [facility] [address] [id number][place] [address]- 1855 May, [facility] [place] [facility] [address] [facility] [id number], [place] [address]- 6370 May, [facility] [place] [facility] [address] [id number], [place] [address]- 4660 30 Apr, 2014 [facility] [place] [facility] [address] [id number] [place] [address]- 7842 30 Apr, 2014 [facility] [place] [facility] [address] [id number] [place] [address]- 9469 Apr, [facility] [place] [facility] [address] [id number] [place] [address]- 0672 Apr, [facility] [place] [facility] [address] [id number] [place] [address]- 3975 Apr, [facility] [place] [facility] [address] [id number] [place] [address]- 6861 Apr, [facility] [place] [facility] [address] [id number] [place] [address]- 7926 Apr, [facility] [place] [facility] [address] [id number] [place] [address]- 0531 Apr, [facility] [place] [facility] [address] [id number] [place] [address]- 1232 Apr, [facility] [place] [facility] [address] [id number] [place] [address]- 0756 05 Apr, 2014 [facility] [place] [facility] [address] [facility] [id number] [place] [address]- 3708 05 Apr, 2014 [facility] [place] [facility] [address] [id number] [place] [address]- 5119 Mar, 2014 [facility] [place] [facility] [address] [id number] [place] [address]- 4879 Mar, 2014 [facility] [place] [facility] [address] [id number] [place] [address]- 0922 16 Mar, 2014 [facility] [place] [facility] [address] [id number] [place] 4504 16 Mar, 2014 [facility] [place] [facility] [address] [facility] [id number] [place] [address]- 7452 10 Mar, 2014 [facility] [place] [facility] [address] [id number] [place] [address]- 9332 Mar, [facility] [place] [facility] [address] [id number] [place] [address]- 5342 Feb, [facility] [place] [facility] [address] [id number] [place] [address]- 7192 Feb, [facility] [place] [facility] [address] [id number] [place] [address]- 6457 Feb, [facility] [place] [facility] [address] [id number] [place] [address]- 7578 Feb, [facility] [place] [facility] [address] [id number] [place] [address]- 1618 Jan, [facility] [place] [facility] [address] [id number] [place] [address]- 7468 Jan, [facility] [place] [facility] [address] [id number] [place] [address]- 1707 Jan, [facility] [place] [facility] [address] [id number] [place] [address]- 3484 Jan, [facility] [place] [facility] [address] [id number] [place] [address]- 3460 Dec, [facility] [place] [facility] [address] [id number] [place] [address]- 3262 Dec, [facility] [place] [facility] [address] [id number] [place] [address]- 5328 Dec, [facility] [place] [facility] [address] [id number] [place] [address]- 7536 Dec, [facility] [place] [facility] [address] [id number] [place] [address]- 5489 Dec, [facility] [place] [facility] [address] [id number] [place] [address]- 0211 Dec, [facility] [place] [facility] [address] [id number], [place] [address]- 8645 Dec, [facility] [place] [facility] [address] [id number] [place] [address]- 1190 Dec, [facility] [place] [facility] [address] [id number] [place] [address]- 1322 Dec, [facility] [place] [facility] [address] [id number] [place] [address]- 4661 Dec, [facility] [place] [facility] [address] [id number] [place] [address]- 6425 07 Dec, 2013 [facility] [place] [facility] [address] [id number] [place] [address]- 9252 31 Nov, 2013 [facility] [place] [facility] [address] [id number] [place] [address]- 6875 28 Nov, 2013 [facility] [place] [facility] [address] [id number] [place] [address]- 0467 28 Nov, 2013 [facility] [place] [facility] [address] [id number] [place] [address]- 8909 17 Nov, 2013 [facility] [place] [facility] [address] [id number] [place] [address]- 2057 17 Nov, 2013 [facility] [place] [facility] [address] [id number] [place] [address]- 4257 15 Nov, 2013 [facility] [place] [facility] [address] [id number], [place] [address]- 9716 15 Nov, 2013 [facility] [place] [facility] [address] [id number], [place] [address]- 9180 15 Nov, 2013 [facility] [place] [facility] [address] [id number] [place] [address]- 5325 15 Nov, 2013 [facility] [place] [facility] [address] [id number], [place] [address]- 9713 14 Nov, 2013 [facility] [place] [facility] [address] [id number], [place] [address]- 1438 14 Nov, 2013 [facility] [place] [facility] [address] [id number] [place] [address]- 4690 14 Nov, 2013 [facility] [place] [facility] [address] [id number] [place] [address]- 4701 14 Nov, 2013 [facility] [place] [facility] [address] [id number] [place] [address]- 2975 13 Nov, 2013 [facility] [place] [facility] [address] [id number] [place] [address]- 7604 13 Nov, 2013 [facility] [place] [facility] [address] [id number] [place] [address]- 6106 11 Nov, 2013 [facility] [place] [facility] [address] [id number] [place] [address]- 9509 11 Nov, 2013 [facility] [place] [facility] [address] [id number] [place] [address]- 7679 07 Nov, 2013 [facility] [place] [facility] [address] [id number] [place] [address]- 6101 07 Nov, 2013 [facility] [place] [facility] [address] [id number] [place] [address]- 2564 07 Nov, 2013 [facility] [place] [facility] [address] [id number] [place] [address]- 5056 07 Nov, 2013 [facility] [place] [facility] [address] [id number] [place] [address]- 2307 30 Oct, 2013 [facility] [place] [facility] [address] [id number] [place] [address]- 2543 30 Sep, 2013 [facility] [place] [facility] [address] [id number] [place] [address]- 9182 26 Sep, 2013 [facility] [place] [facility] [address] [id number] [place] [address]- 3036 26 Sep, 2013 [facility] [place] [facility] [address] [id number] [place] [address]- 8280 22 Oct, 2013 [facility] [place] [facility] [address] [id number] [place] [address]- 4640 Oct, [facility] [place] [facility] [address] [id number] [place] [address]- 6026 18 Oct, 2013 [facility] [place] [facility] [address] [id number] [place] [address]- 0562 Oct, 2013 [facility] [place] [facility] [address] [id number] [place] [address]- 9499 Oct, 2013 [facility] [place] [facility] [address] [id number] [place] [address]- 4889 Oct, 2013 [facility] [place] [facility] [address] [id number] [place] [address]- 9172 Oct, [facility] [place] [facility] [address] [id number] [place] [address]- 7472 Oct, [facility] [place] [facility] [address] [id number] [place] [address]- 0858 Oct, [facility] [place] [facility] [address] [id number] [place] [address]- 3645 Oct, [facility] [place] [facility] [address] [id number] [place] [address]- 2115 Sep, [facility] [place] [facility] [address] [id number] [place] [address]- 4187 Sep, [facility] [place] [facility] [address] [id number] [place] [address]- 3795 Sep, [facility] [place] [facility] [address] [id number] [place] [address]- 6311 Sep, [facility] [place] [facility] [address] [id number] [place] [address]- 2382 Sep, [facility] [place] [facility] [address] [id number] [place] [address]- 6642 Sep, [facility] [place] [facility] [address] [id number] [place] [address]- 2068 Sep, [facility] [place] [facility] [address] [id number] [place] [address]- 6130 Sep, [facility] [place] [facility] [address] [id number] [place] [address]- 9514 Sep, [facility] [place] [facility] [address] [id number] [place] [address]- 5349 Sep, [facility] [place] [facility] [address] [id number] [place] [address]- 3310 Sep, [facility] [place] [facility] [address] [id number] [place] [address]- 1489 Sep, [facility] [place] [facility] [address] [id number] [place] [address]- 2455 Sep, [facility] [place] [facility] [address] [id number] [place] [address]- 6662 Sep, [facility] [place] [facility] [address] [id number] [place] [address]- 0304 Sep, [facility] [place] [facility] [address] [id number] [place] [address]- 4143 Sep, [facility] [place] [facility] [address] [id number] [place] [address]- 4370 Sep, [facility] [place] [facility] [address] [id number] [place] [address]- 2017 Sep, [facility] [place] [facility] [address] [id number] [place] [address]- 0513 Aug, [facility] [place] [facility] [address] [id number] [place] [address]- 4064 Aug, [facility] [place] [facility] [address] [id number] [place] [address]- 3538 Aug, [facility] [place] [facility] [address] [id number] [place] [address]- 0541 Aug, [facility] [place] [facility] [address] [id number] [place] [address]- 2175 Aug, [facility] [place] [facility] [address] [id number] [place] [address] Aug, [facility] [place] [facility] [address] [id number] [place] [address] Jul, [facility] [place] [facility] [address] [id number] [place] [address] Jul, [facility] [place] [facility] [address] [id number] [place] [address] Jul, [facility] [place] [facility] [address] [id number] [place] [address] Jul, [facility] [place] [facility] [address] [id number] [place] [address] June, [facility] [place] [facility] [address] [id number] [place] [address] June, [facility] [place] [facility] [address] [id number] [place] [address] June, [facility] [place] [facility] [address] [id number] [place] [address] June, [facility] [place] [facility] [address] [id number] [place] [address] June, [facility] [facility] [address] [id number] [place] [address] June, [facility] [place] [facility] [address] [id number] [place] [address] June, [facility] [place] [facility] [address] [id number] [place] [address] May, [facility] [place] [facility] [address] [id number] [place] [address] May, [facility] [facility] [address] [id number] [place] [address] May, [facility] [place] [facility] [address] [id number] [place] [address] 28 May, 2013 [facility] [place] [facility] [address] [id number] [place] [address] May, [facility] [place] [facility] [address] [id number] [place] [address] 17 May, 2013 [facility] [place] [facility] [address] [id number] [place] [address] 31 Apr, 2013 [facility] [place] [facility] [address] [id number] [place] [address] 31 Apr, 2013 [facility] [place] [facility] [address] [id number] [place] [address] 28 Apr, 2013 [facility] [place] [facility] [address] [id number] [place] [address] 28 Apr, 2013 [facility] [place] [facility] [address] [id number] [place] [address] 14 Apr, 2013 [facility] [place] [facility] [address] [id number] [place] [address] 14 Apr, 2013 [facility] [place] [facility] [address] [id number] [place] [address] 12 Apr, 2013 [facility] [place] [facility] [address] [id number] [place] [address] 12 Apr, 2013 [facility] [place] [facility] [address] [id number] [place] [address] 10 Apr, 2013 [facility] [place] [facility] [address] [id number] [place] [address] 10 Apr, 2013 [facility] [place] [facility] [address] [id number] [place] [address] 04 Apr, 2013 [facility] [place] [facility] [address] [id number] [place] [address] 04 Apr, 2013 [facility] [place] [facility] [address] [id number] [place] [address] 03 Apr, 2013 [facility] [address] [id number] [place] [address] Apr, [facility] [address] [id number] [place] [address] Mar, [facility] [place] [facility] [address] [id number] [place] [address] Mar, [facility] [address] [id number] [place] [address] Mar, [facility] [address] [id number] [place] [address] Feb, [facility] [address] [id number] [place] [address] Feb, [facility] [address] [id number] [place] [address] Feb, [facility] [address] [id number] [place] [address] Feb, [facility] [address] [id number] [place] [address] Feb, [facility] [address] [id number] [place] [address] Feb, [facility] [address] [id number] [place] [address] Feb, [facility] [address] [id number] [place] [address] Feb, [facility] [place] [facility] [address] [id number] [place] [address] Feb, [facility] [place] [facility] [address] [id number] [place] [address] Feb, [facility] [place] [facility] [address] [id number] [place] [address] 0131 Jan, [facility] [place] [facility] [address] [id number] [place] [address] 67[address] Jan, [facility] [place] [facility] [address] [id number] [place] [address] Jan, [facility] [address] [id number] [place] [address] 3596 Jan, [facility] [address] [id number] [place] [address] 5203 Jan, [facility] [address] [id number] [place] [address] 7516 Jan, [facility] [address] [id number] [place] [address] Jan, [facility] [address] [id number] [place] [address]- 6205 Jan, [facility] [address] [id number] [place] [address] Jan, [facility] [address] [id number] [place] [address] 1736 Jan, [facility] [address] [id number] [place] [address] 0024 Jan, [facility] [address] [id number] [place] [address]- 8577 Jan, [facility] [address] [id number] [place] [address] 16 Jan, 2013 [facility] [place] [facility] [address] [id number], [place] [address] 6[address] Jan, [facility] [place] [facility] [address] [id number] [place] [address] 1585 Jan, [facility] [place] [facility] [address] [id number] [place] [address]- 3798 Jan, [facility] [place] [facility] [address] [id number] [place] [address] 0390 Jan, [facility] [place] [facility] [address] [id number], [place] [address] 8076 Jan, [facility] [place] [facility] [address] [id number] [place] [address]- 6440 Jan, [facility] [place] [facility] [address] [id number], [place] [address]- 1477 Jan, [facility] [place] [facility] [address] [facility] [id number] [place] [address]- 1084 Jan, [facility] [place] [facility] [address] [id number], [place] [address]- 6625 Dec, [facility] [place] [facility] [address] [id number] [place] [address]- 6269 Dec, [facility] [place] [facility] [address] [id number], [place] [address]- 3965 Dec, [facility] [place] [facility] [address] [id number], [place] [address]- 2624 Dec, [facility] [place] [facility] [address] [id number], [place] [address]- 4780 Dec, [facility] [place] [facility] [address] [id number], [place] [address]- 5196 Dec, [facility] [place] [facility] [address] [id number], [place] [address]- 8596 Dec, [facility] [place] [facility] [address] [id number], [place] [address]- 4083 Dec, [facility] [place] [facility] [address] [id number], [place] [address] 5489 Dec, [facility] [place] [facility] [address] [id number], [place] [address]- 0857 Dec, [facility] [place] [facility] [address] [id number], [place] [address]- 2678 Nov, [facility] [place] [facility] [address] [id number], [place] [address]- 1157 Nov, [facility] [place] [facility] [address] [id number] [place] [address]- 9162 18 Nov, 2012 [facility] [place] [facility] [address] [id number] [place] [address] 5211 18 Nov, 2012 [facility] [place] [facility] [address] [id number] [place] [address] Nov, 2012 [facility] [place] [facility] [address] [id number] [place] [address]- 2496 Nov, 2012 [facility] [place] [facility] [address] [id number] [place] [address]- 4786 11 Nov, 2012 [facility] [place] [facility] [address] [id number] [place] [address]- 8453 Nov, [facility] [place] [facility] [address] [id number] [place] [address]- 3970 10 Nov, 2012 [facility] [place] [facility] [address] [id number] [place] [address]- 3724 Nov, [facility] [place] [facility] [address] [id number] [place] [address]- 7335 26 Oct, 2012 [facility] [place] [facility] [address] [id number] [place] [address]- 2920 26 Oct, 2012 [facility] [place] [facility] [address] [id number] [place] [address]- 1336 Oct, [facility] [place] [facility] [address] [id number] [place] [address] 2545 25 Oct, 2012 [facility] [place] [facility] [address] [id number] [place] [address] 2542 06 Oct, 2012 [facility] [place] [facility] [address] [id number] [place] [address] 2546 Sep, [facility] [place] [facility] [address] [id number] [place] [address]- 2546 Sep, [facility] [place] [facility] [address] [id number] [place] [address]- 5806 Aug, [facility] [address] [id number] [place] [address]- 5366 Aug, [facility] [place] [facility] [address] [id number] [place] [address]- 0344 Aug, [facility] [address] [id number] [place] [address]- 3663 Aug, [facility] [place] [facility] [address] [id number] [place] [address]- 2919 Aug, [facility] [address] [id number] [place] [address]- 0477 Aug, [facility] [address] [id number] [place] [address]- 3844 Aug, [facility] [address] [id number] [place] [address]- 6655 Jul, [facility] [address] [id number] [place] [address]- 7659 Jul, [facility] [address] [id number] [place] [address]- 2357 June, [facility] [place] [facility] [address] [id number] [place] [address]- 3307 June, [facility] [place] [facility] [address] [id number] [place] [address]- 9174 June, [facility] [place] [facility] [address] [id number] [place] [address]- 2599 June, [facility] [place] [facility] [address] [id number] [place] [address]- 9833 June, [facility] [place] [facility] [address] [id number] [place] [address]- 0253 June, [facility] [place] [facility] [address] [id number] [place] [address]- 9631 June, [facility] [place] [facility] [address] [id number] [place] [address]- 7003 June, [facility] [address] [id number] [place] [address]- 5798 June, [facility] [address] [id number] [place] [address]- 8600 June, [facility] [address] [id number] [place] [address]- 5718 June, [facility] [place] [facility] [address] [id number] [place] [address]- 7582 May, [facility] [address] [id number] [place] [address]- 6948 May, [facility] [address] [id number] [place] [address]- 6364 May, [facility] [address] [id number] [place] [address]- 5163 May, [facility] [address] [id number] [place] [address]- 5678 Apr, [facility] [address] [id number] [place] [address]- 2743 Apr, [facility] [address] [id number] [place] [address]- 4090 Apr, [facility] [address] [id number] [place] [address]- 1495 Mar, [facility] [place] [facility] [address] [id number] [place] [address]- 8982 Mar, [facility] [place] [facility] [address] [id number] [place] [address]- 0339 Feb, [facility] [place] [facility] [address] [id number] [place] [address]- 0276 Feb, [facility] [place] [facility] [address] [id number] [place] [address]- 3891 Feb, [facility] [place] [facility] [address] [id number] [place] [address]- 2815 Feb, [facility] [address] [id number] [place] [address]- 1863 Feb, [facility] [address] [id number] [place] [address]- 4222 14 Feb, 2012 [facility] [address] [id number] [place] [address]- 5342 Feb, [facility] [address] [id number] [place] [address]- 8920 Jan, [facility] [address] [id number] [place] [address]- 5104 Jan, [facility] [address] [id number] [place] [address]- 8306 Jan, [facility] [address] [id number] [place] [address]- 1967 Jan, [facility] [address] [id number] [place] [address]- 3450 Jan, [facility] [address] [id number] [place] [address]- 7759 Jan, [facility] [address] [id number] [place] [address]- 2680 Jan, [facility] [address] [id number] [place] [address]- 4143 Jan, [facility] [address] [id number] [place] [address]- 8692 Jan, [facility] [address] [id number] [place] [address]- 7775 Jan, [facility] [address] [id number] [place] [address]- 7594 Jan, [facility] [address] [id number] [place] [address]- 0710 Dec, [facility] [place] [facility] [address] [id number] [place] [address]- 9505 Dec, [facility] [place] [facility] [address] [id number] [place] [address]- 3276 Dec, [facility] [place] [facility] [address] [id number] [place] [address]- 0826 Dec, [facility] [place] [facility] [address] [id number] [place] [address]- 7424 Nov, [facility] [place] [facility] [address] [id number] [place] [address]- 9835 Nov, [facility] [place] [facility] [address] [id number] [place] [address]- 0166 Nov, [facility] [place] [facility] [address] [id number] [place] [address]- 6387 27 Oct, 2011 [facility] [place] [facility] [address] [id number] [place] [address]- 4350 24 Oct, 2011 [facility] [place] [facility] [address] [id number] [place] [address]- 3043 21 Oct, 2011 [facility] [place] [facility] [address] [id number] [place] [address]- 2052 10 Oct, 2011 [facility] [place] [facility] [address] [id number] [place] [address]- 8347 07 Oct, 2011 [facility] [place] [facility] [address] [id number] [place] [address]- 9284 Oct, [facility] [place] [facility] [address] [id number] [place] [address]- 4107 Oct, [facility] [place] [facility] [address] [id number] [place] [address]- 1475 Sep, [facility] [place] [facility] [address] [id number] [place] [address]- 7499 Sep, [facility] [place] [facility] [address] [id number] [place] [address]- 8940 Sep, [facility] [place] [facility] [address] [id number] [place] [address]- 2606 Sep, [facility] [place] [facility] [address] [id number] [place] [address]- 0726 Sep, [facility] [address] [id number] [place] [address]- 9150 Aug, [facility] [place] [facility] [address] [id number] [place] [address]- 6201 Aug, [facility] [place] [facility] [address] [id number] [place] [address]- 6101 Aug, [facility] [place] [facility] [address] [id number] [place] [address]- 2573 Aug, [facility] [place] [facility] [address] [id number] [place] [address]- 5536 Aug, [facility] [address] [id number] [place] [address]- 8040 Aug, [facility] [place] [facility] [address] [id number] [place] [address]- 1597 Aug, [facility] [address] [id number] [place] [address]- 5247 Jul, [facility] [place] [facility] [address] [id number] [place] [address]- 3080 Jul, [facility] [place] [facility] [address] [id number] [place] [address]- 1465 Jul, [facility] [place] [facility] [address] [id number] [place] [address]- 9389 Jul, [facility] [place] [facility] [address] [id number] [place] [address]- 5676 Jul, [facility] [place] [facility] [address] [id number] [place] [address]- 2842 Jul, [facility] [address] [id number] [place] [address]- 9368 07 Jul, 2011 [facility] [place] [facility] [address] [id number] [place] [address]- 3564 Jul, [facility] [place] [facility] [address] [id number] [place] [address]- 7074 Jul, [facility] [place] [facility] [address] [id number] [place] [address]- 2418 June, [facility] [place] [facility] [address] [id number] [place] [address]- 1968 June, [facility] [place] [facility] [address] [id number] [place] [address]- 6000 June, [facility] [place] [facility] [address] [id number] [place] [address]- 0812 June, [facility] [place] [facility] [address] [id number] [place] [address]- 6407 June, [facility] [place] [facility] [address] [id number] [place] [address]- 1083 June, [facility] [place] [facility] [address] [id number] [place] [address]- 7790 June, [facility] [place] [facility] [address] [id number] [place] [address]- 7270 June, [facility] [place] [facility] [address] [id number] [place] [address]- 2944 May, [facility] [place] [facility] [address] [id number] [place] [address]- 5027 May, [facility] [place] [facility] [address] [id number] [place] [address]- 3595 May, [facility] [place] [facility] [address] [id number] [place] [address]- 9238 May, [facility] [place] [facility] [address] [id number], [place] [address]- 2723 16 May, 2011 [facility] [address] [id number] [place] [address]- 9816 16 May, 2011 [facility] [place] [facility] [address] [id number] [place] [address]- 0936 02 May, 2011 [facility] [place] [facility] [address] [facility] [id number] [place] [address]- 6685 27 Apr, 2011 [facility] [place] [facility] [address] [id number] [place] [address]- 4392 22 Apr, 2011 [facility] [place] [facility] [address] [id number] [place] [address]- 1424 Apr, [facility] [place] [facility] [address] [facility] [id number] [place] [address]- 2775 Apr, [facility] [id number] [place] [address]- 4854 Apr, [facility] [place] [facility] [address] [id number] [place] [address]- 0745 06 Apr, 2011 [facility] [place] [facility] [address] [id number] [place] [address]- 5288 Apr, [facility] [place] [facility] [address] [id number] [place] [address]- 8041 20 Mar, 2011 [facility] [place] [facility] [id number] [place] [address]- 2558 20 Mar, 2011 [facility] [place] [facility] [address] [facility] [id number] [place] [address]- 0682 14 Mar, 2011 [facility] [place] [facility] [address] [id number] [place] [address]- 6785 13 Mar, 2011 [facility] [place] [facility] [address] [facility] [id number] [place] [address]- 6796 09 Mar, 2011 [facility] [place] [facility] [address] [id number] [place] [address]- 6767 08 Mar, 2011 [facility] [place] [facility] [address] [id number] [place] [address]- 0438 Mar, [facility] [address] [id number] [place] [address]- 7028 Feb, [facility] [place] [facility] [address] [id number] [place] [address]- 7522 Feb, [facility] [place] [facility] [address] [id number] [place] [address]- 2770 Feb, [facility] [address] [id number] [place] [address]- 3681 Feb, [facility] [place] [facility] [address] [id number] [place] [address]- 9897 Feb, [facility] [address] [id number] [place] [address]- 5428 Feb, [facility] [address] [id number] [place] [address]- 7044 Feb, [facility] [place] [facility] [address] [id number] [place] [address]- 2739 Feb, [facility] [address] [id number] [place] [address]- 9956 Feb, [facility] [place] [facility] [address] [id number] [place] [address]- 9612 Feb, [facility] [address] [id number], [place] [address]- 5015 Jan, [facility] [place] [facility] [address] [id number] [place] [address]- 9653 Jan, [facility] [place] [facility] [address] [id number] [place] [address]- 8865 Jan, [facility] [place] [facility] [address] [id number] [place] [address]- 1814 Jan, [facility] [place] [facility] [address] [id number] [place] [address]- 9584 Jan, [facility] [place] [facility] [address] [id number] [place] [address]- 8287 Jan, [facility] [place] [facility] [address] [id number] [place] [address]- 8982 15 Jan, 2011 [facility] [place] [facility] [address] [facility] [id number] [place] [address]- 4324 15 Jan, 2011 [facility] [place] [facility] [address] [id number] [place] [address]- 4665 08 Jan, 2011 [facility] [place] [facility] [address] [id number] [place] [address]- 3561 Jan, [facility] [place] [facility] [address] [id number] [place] [address]- 8553 Jan, [facility] [place] [facility] [address] [facility] [id number] [place] [address]- 2642 17 Dec, 2010 [facility] [place] [facility] [address] [id number] [place] [address]- 0069 17 Dec, 2010 [facility] [place] [facility] [address] [facility] [id number] [place] [address]- 3526 17 Dec, 2010 [facility] [place] [facility] [address] [facility] [id number] [place] [address]- 4932 16 Dec, 2010 [facility] [place] [facility] [address] [facility] [id number] [place] [address]- 2880 14 Dec, 2010 [facility] [place] [facility] [address] [id number] [place] [address]- 7523 09 Dec, 2010 [facility] [place] [facility] [address] [id number] [place] [address]- 5118 08 Dec, 2010 [facility] [place] [facility] [address] [facility] [id number] [place] [address] 07 Dec, 2010 [facility] [place] [facility] [address] [facility] [id number] [place] [address] 02 Dec, 2010 [facility] [place] [facility] [address] [id number] [place] [address] Nov, [facility] [place] [facility] [address] [id number] [place] [address] Nov, [facility] [place] [facility] [address] [id number] [place] [address] Nov, [facility] [place] [facility] [address] [id number] [place] [address] Nov, [facility] [place] [facility] [address] [id number] [place] [address] 24 Nov, 2010 [facility] [place] [facility] [address] [id number] [place] [address] Nov, [facility] [place] [facility] [address] [id number] [place] [address] Aug, [facility] [place] [facility] [address] [id number] [place] [address] 14 Feb, 2010 [facility] [place] [facility] [address] [id number] [place] [address] 14 Jan, 2010 [facility] [place] [facility] [address] [id number] [place] [address] Jan, [facility] [place] [facility] [address] [id number] [place] [address] Jan, [facility] [place] [facility] [address] [id number] [place] [address] Jan, [facility] [place] [facility] [address] [id number] [place] [address] Jan, [facility] [place] [facility] [address] [id number] [place] [address] Dec, [facility] [place] [facility] [address] [id number] [place] [address] Dec, [facility] [place] [facility] [address] [id number] [place] [address] Dec, [facility] [place] [facility] [address] [facility] [id number] [place] [address] Dec, [facility] [place] [facility] [address] [facility] [id number], [place] [address] Nov, [facility] [place] [facility] [address] [facility] [id number], [place] [address] Nov, [facility] [place] [facility] [address] [facility] [id number], [place] [address] Nov, IMMUNIZATIONS No Known Immunizations SOCIAL HISTORY Never Assessed REASON FOR VISIT Controlled Med Refill 12/11 PLAN OF CARE VITAL SIGNS MEDICATIONS Medication [...]
--- OUTSIDE RECORDS SUMMARY | 2018-01-13 20:34 | XMS REPORT ---
Author Author JUAN CARLOS SHEFFIELD Organization [facility] Address [address] 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 Active 097053303 Problem Hypertension I10 Active 50539755 Problem Arthritis M19.90 Active 3670908 Problem 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 Active 23832548 Problem Anxiety F41.9 Active 30647599 Problem Unspecified episodic mood disorder F39 Active 23406447 Problem Left hip pain M25.552 Active 50835456 ALLERGIES Substance Reaction Event Type Date Status Propranolol HCl chest pain, headache Drug Allergy Nov, Active Bactrim unknown Drug Allergy Nov, Active Penicillins unknown Non Drug Allergy Nov, Active ENCOUNTERS Encounter Location Date Diagnosis [facility] [address] [facility] [id number] [address] Dec, [facility] [address] [facility] [id number], [place] [address] Dec, [facility] [address], [place] [address] Nov, [facility] [id number] [address] 75258- 8453 Nov, Chronic hepatitis C without hepatic coma B18.2 and Screening for malignant neoplasm of breast Z12.31 [facility] [id number] [place] [address] 39115- 1656 Nov, [facility] [id number] [address] 33273- 3270 Nov, Chronic hepatitis C without hepatic coma B18.2 [facility] [id number] [address] 72546- 6617 Nov, [facility] [id number] [address] 89085- 3569 Nov, Arthritis M19.90 and Unspecified episodic mood disorder F39 [facility] [id number] [address] 95166- 5115 Oct, [facility] [id number] [address] 21913- 4478 Oct, Chronic hepatitis C without hepatic coma B18.2 and Encounter for immunization Z23 [facility] [id number] [address] 87233- 4070 Oct, [facility] [id number] [address] 75061- 1642 Oct, Arthritis M19.90 and Unspecified episodic mood disorder F39 [facility] [id number] [address] 22958- 8763 Sep, Chronic hepatitis C without hepatic coma B18.2 [facility] [address], [place] [address] 76[address] Sep, Gastroesophageal reflux disease, esophagitis presence not specified K21.9 and Other chronic pain G89.29 [facility] [address], [place] [address] 6162 Sep, [facility] [id number] [address] 15159- 7747 Sep, [facility] [address], [place] [address] 3242 Sep, Chronic hepatitis C without hepatic coma B18.2 [facility] [id number] [address] 39259- 4306 Sep, 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 [facility] [id number] [address] 71741- 2011 Sep, Arthritis M19.90 [facility] [id number] [place] [address] 82505- 0427 Sep, [facility] [id number] [address] 03827- 4589 Sep, Unspecified episodic mood disorder F39 [facility] [id number] [address] 19336- 7267 Aug, [facility] [id number] [place] [address] [id number] Aug, [facility] [id number] [address] 13959- 6114 Aug, Arthritis M19.90 [facility] [id number] [address] 49759- 5942 Aug, [facility] [id number] [place] [address] 24126- 0655 Aug, Obesity (BMI 30.0-34.9) E66.9 ; Unspecified episodic mood disorder F39 and Hypertension I10 [facility] [address], [place] [address] 5467 Aug, Unspecified episodic mood disorder F39 [facility] [id number] [address] 6174 Aug, [facility] [id number] [address] 0944 Jul, Unspecified episodic mood disorder F39 [facility] [address], [place] [address]- 6035 Jul, [facility] [id number] [address] 32584- 8085 Jul, Arthritis M19.90 [facility] [id number] [address] 48818- 1597 Jul, Left hip pain M25.552 ; Hypertension I10 ; Other obesity due to excess calories E66.09 and Body mass index (BMI) of 34.0-34.9 in adult Z68.34 [facility] [id number] [address] 84050- 8537 Jul, Unspecified episodic mood disorder F39 [facility] [address], [place] [address] 8418 June, Gastroesophageal reflux disease, esophagitis presence not specified K21.9 [facility] [address], [place] [address]- 8342 June, [facility] [address], [place] [address]- 2475 June, [facility] [address], [place] [address]- 3177 June, Arthritis M19.90 [facility] [address], [place] [address]- 0640 June, [facility] [id number] [address] 4977 June, [facility] [id number], [place] [address] 4192 June, Unspecified episodic mood disorder F39 [facility] [id number] [address] 80846- 9557 May, Unspecified episodic mood disorder F39 [facility] [id number] [address] 79718- 8321 May, [facility] [id number] [address] 19221- 9662 May, Arthritis M19.90 [facility] [id number] [address] 58624 -8209 May, Dysuria R30.0 ; Abscess L02.91 and Acute cystitis without hematuria N30.00 [facility] [id number] [address] 51870- 9308 May, 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 ; Unspecified episodic mood disorder F39 ; Combined drug dependence excluding opioids, 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 ; Anxiety F41.9 and Other psychoactive substance dependence, 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 [facility] [id number] [address] 62327- 2066 May, [facility] [id number] [address] 48954- 0791 May, 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 ; Unspecified episodic mood disorder F39 ; Combined drug dependence excluding opioids, 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 ; Other psychoactive substance dependence, 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 and Anxiety F41.9 [facility] [id number] [address] 79954- 4613 May, Other chronic pain G89.29 ; Left hip pain M25.552 ; Hypertension I10 ; 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, 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 and Unspecified episodic mood disorder F39 [facility] [id number] [address] 51497- 8246 Apr, [facility] [id number] [address] 80195 -1793 Apr, Neck pain M54.2 ; Left hip pain M25.552 and Fall, initial encounter W19.XXXA [facility] [id number] [address] 48775- 8653 Apr, Unspecified episodic mood disorder F39 ; Combined drug dependence excluding opioids, 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 ; Anxiety F41.9 ; Other psychoactive substance dependence, 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 and 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 [facility] [id number] [address] 86598- 4601 Apr, [facility] [id number] [address] 58755- 5268 Apr, Arthritis M19.90 and Unspecified episodic mood disorder F39 [facility] [id number] [address] 61120- 2329 Apr, Unspecified episodic mood disorder F39 [facility] [id number] [address] 40972- 3776 Apr, [facility] [id number] [address] 17294- 5633 Apr, [facility] [id number] [address] 76995- 1300 Apr, Unspecified episodic mood disorder F39 ; Combined drug dependence excluding opioids, 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 ; Anxiety F41.9 ; Other psychoactive substance dependence, 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 and 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 [facility] [id number] [address] 21208- 1472 Mar, Unspecified episodic mood disorder F39 [facility] [id number] [address] 33879- 2900 Mar, Gastroesophageal reflux disease, esophagitis presence not specified K21.9 [facility] [id number] [address] 99351- 6910 Mar, Arthritis M19.90 and Unspecified episodic mood disorder F39 [facility] [id number] [address] 41072- 4602 Feb, [facility] [id number] [address] 80305- 6739 Feb, [facility] [id number] [address] 08218- 9269 Feb, [facility] [id number] [address] 76150- 3001 Feb, Arthritis M19.90 [facility] [address] 16087- 1347 Feb, Non-pressure chronic ulcer of right calf, 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 ; Unspecified episodic mood disorder F39 and Left hip pain M25.552 [place] [address] 55904- 3938 Feb, [facility] [address] 40369- 0794 Feb, [facility] [id number] [address] 50880- 8073 Jan, Arthritis M19.90 [facility] [id number] [address] 74260- 1951 Jan, Left hip pain M25.552 and Non-pressure chronic ulcer of right calf, 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 [facility] [id number] [address] 67002- 7521 Jan, Chronic hepatitis C without hepatic coma B18.2 [facility] [id number] [address] 81027- 0684 Jan, Encounter for immunization Z23 ; Venous insufficiency ( chronic) (peripheral) I87.2 ; Non-pressure chronic ulcer of unspecified calf limited to breakdown of skin L97.201 and Gastroesophageal reflux disease, esophagitis presence not specified K21.9 [facility] [address] 41082- 6324 Jan, [facility] [id number] [address] 56237- 4381 Jan, Chronic hepatitis C without hepatic coma B18.2 and Encounter for immunization Z23 [facility] [id number] [address] 79808- 8722 Jan, Arthritis M19.90 [facility] [id number] [address] 61432- 7993 Jan, [facility] [id number] [address] 22447- 3782 Dec, [facility] [id number] [address] 89108- 2530 Dec, Unspecified episodic mood disorder F39 [facility] [id number] [address] 14896- 4808 Dec, Arthritis M19.90 [facility] [id number] [address] 57073- 1211 Dec, Arthritis M19.90 [facility] [id number] [address] 10488- 4378 Nov, [facility] [id number] [address] 19549- 6511 Nov, [facility] [id number] [address] 63384- 4443 Nov, Other psychoactive substance dependence, 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 ; 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, 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90 [facility] [address], [place] [address]- 5563 Sep, [facility] [id number] [place] [address] 42325- 9107 Sep, [facility] [id number] [address] 37754- 7334 Sep, Unspecified episodic mood disorder F39 ; Chronic hepatitis C without hepatic coma B18.2 and Left hip pain M25.552 [facility] [id number] [address] 21004- 3929 Sep, Arthritis M19.90 and Left hip pain M25.552 [facility] [id number] [address] 12942- 7387 Aug, [facility] [id number] [place] [address] 51783- 8234 Aug, [facility] [id number] [address] 96009- 2547 Aug, Chronic hepatitis C without hepatic coma B18.2 [facility] [address], [place] [address]- 9124 Aug, [facility] [id number] [address] 84607- 9577 Aug, Chronic hepatitis C without hepatic coma B18.2 [facility] [id number] [address] 72570- 6431 Aug, 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, 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 [facility] [address], [place] [address]- 3616 Aug, [facility] [id number] [address] 34492- 2555 Aug, Chronic hepatitis C without hepatic coma B18.2 and Hypertension I10 [facility] [id number] [address] 58482- 0037 Jul, [facility] [id number] [address] 53964- 2800 June, [facility] [id number] [address] 82508- 4130 Apr, Fibromyalgia M79.7 ; Left hip pain M25.552 and Decubitus ulcer of sacral region, stage 1 L89.151 [facility] [id number] [address] 43225- 2020 Apr, [facility] [id number] [address] 25858- 5175 Apr, [facility] [id number] [address] 88349- 8515 Feb, [facility] [id number] [address] 13120- 1587 Dec, Anxiety F41.9 ; Combined drug dependence excluding opioids, 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 and Unspecified episodic mood disorder F39 [facility] [id number] [place] [address] 55432- 5420 Dec, [facility] [id number] [address] 31105- 3326 18 Nov, 2015 [facility] [id number] [address] 31156- 7207 Nov, [facility] [id number] [address] 51247- 6750 10 Nov, 2015 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 and Anxiety F41.9 [facility] [id number] [address] 15273- 2826 Oct, [facility] [id number] [address] 79719 -0513 14 Oct, 2015 Open wound of left thigh, initial encounter S71.102A [facility] [id number] [place] [address] 61243- 7896 12 Oct, 2015 [facility] [address], [place] [address] 2546 Sep, Unspecified episodic mood disorder F39 ; Other disorder of impulse control 312.39 ; Combined drug dependence excluding opioids, 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 and Anxiety F41.9 [facility] [id number] [address] 85814- 6013 Sep, Other disorder of impulse control 312.39 ; Combined drug dependence excluding opioids, 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 ; Anxiety F41.9 and Unspecified episodic mood disorder F39 [facility] [id number] [address] 74624- 3838 Sep, Other chronic pain G89.29 [facility] [id number] [address] 03020- 5446 Sep, [facility] [id number] [address] 81419- 6256 Sep, [facility] [id number] [address] 15688- 1116 Aug, [facility] [address], [place] [address]- 2566 Aug, [facility] [id number] [address] 57100 2546 Aug, [facility] [address], [place] [address] 2546 Jul, [facility] [id number] [address] 73690- 9586 Jul, [facility] [address], [place] [address]- 1076 Jul, [facility] [address] [place] [address]- 9666 17 Jul, 2015 Arthritis M19.90 ; Chronic hepatitis C without hepatic coma B18.2 and Left hip pain M25.552 [facility] [id number] [address] 57988- 8662 Jul, Left knee pain M25.562 [facility] [id number] [address] 12039- 4891 Jul, Combined drug dependence excluding opioids, 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 ; Anxiety F41.9 ; Other disorder of impulse control 312.39 and Unspecified episodic mood disorder F39 [facility] [id number] [address] 93302- 6297 Jul, Left knee pain M25.562 [facility] [id number] [address] 86699- 2659 Jul, Left knee pain M25.562 and Left hip pain M25.552 [facility] [id number] [address] 87928- 3740 Jul, [facility] [id number] [address] 65189- 9686 June, [facility] [id number] [address] 84855- 5083 June, Combinations of drug dependence excluding opioid type drug, 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 ; Other disorder of impulse control 312.39 ; Unspecified episodic mood disorder F39 and Anxiety F41.9 [facility] [id number] [place] [address] 11641- 5265 June, Other fatigue R53.83 ; Headache R51 and Left knee pain M25.562 [facility] [id number] [place] [address] 29712- 0156 June, Unspecified episodic mood disorder F39 ; Combinations of drug dependence excluding opioid type drug, 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 ; Other disorder of impulse control 312.39 and Anxiety F41.9 [facility] [address], [place] [address]- 1009 June, Anxiety F41.9 [facility] [id number] [address] 18894- 7198 June, Pain in left knee M25.562 [facility] [id number] [address] 63590- 8452 June, Anxiety F41.9 and Combinations of drug dependence excluding opioid type drug, 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 [facility] [id number] [address] 94948- 8887 June, Unspecified episodic mood disorder 296.90 ; Combinations of drug dependence excluding opioid type drug, 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 and Other disorder of impulse control 312.39 [facility] [id number] [address] 40137- 0426 June, Anxiety F41.9 and Unspecified episodic mood disorder 296.90 [facility] [id number] [address] 85762- 6940 May, Arthritis M19.90 [facility] [id number] [address] 64449- 7090 May, Arthritis M19.90 [facility] [id number] [place] [phone] May, Anxiety F41.9 ; Combinations of drug dependence excluding opioid type drug, 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 and Other disorder of impulse control 312.39 [facility] [id number] [address] [phone] May, Left knee pain M25.562 [facility] [id number] [address] [id number] May, Arthritis M19.90 [facility] [address] [id number] [place] [address] 96857- 2326 May, [facility] [id number] [place] [address] 61733- 3615 May, Anxiety F41.9 ; Unspecified episodic mood disorder 296.90 ; Combinations of drug dependence excluding opioid type drug, 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 and Other disorder of impulse control 312.39 [address] [id number] [place] [address] 42218- 5526 May, Left knee pain M25.562 [place] [id number] [place] [address] 34998- 5935 May, Left knee pain M25.562 ; Combinations of drug dependence excluding opioid type drug, 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 ; Other disorder of impulse control 312.39 ; Fibromyalgia M79.7 ; Hypertension I10 ; Unspecified episodic mood disorder 296.90 and Left hip pain M25.552 [place] [id number] [place] [address] 21294- 7406 May, Unspecified episodic mood disorder 296.90 ; Other disorder of impulse control 312.39 ; Combinations of drug dependence excluding opioid type drug, 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 and Anxiety F41.9 [place] [id number] [place] [address] 67464- 7188 May, Left knee pain M25.562 ; Combinations of drug dependence excluding opioid type drug, 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 ; Other disorder of impulse control 312.39 ; Fibromyalgia M79.7 ; Hypertension I10 ; Unspecified episodic mood disorder 296.90 and Left hip pain M25.552 [place] [id number] [place] [address] 54993- 3689 May, Anxiety F41.9 ; Unspecified episodic mood disorder 296.90 ; Other disorder of impulse control 312.39 and Combinations of drug dependence excluding opioid type drug, 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 [place] [id number] [place] [address] 91260- 3546 Apr, 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 and 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, implants and grafts, initial encounter T84.82XA [place] [id number] [place] [address] 92106- 0984 Apr, Anxiety F41.9 ; Unspecified episodic mood disorder 296.90 ; Combinations of drug dependence excluding opioid type drug, 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 and Other disorder of impulse control 312.39 [facility] [id number] [place] [address] 46624- 5662 Apr, Arthritis M19.90 [facility] [id number] [place] [address] 27933- 9602 Apr, Anxiety F41.9 ; Unspecified episodic mood disorder 296.90 ; Combinations of drug dependence excluding opioid type drug, 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 and Other disorder of impulse control 312.39 [facility] [id number] [address] 66277- 5837 17 Apr, 2015 Arthritis M19.90 [facility] [id number] [place] [address] 33262- 9630 15 Apr, 2015 [facility] [id number] [address] 65320- 2237 15 Apr, 2015 [facility] [id number] [place] [address] 60489- 8482 14 Apr, 2015 Unspecified episodic mood disorder 296.90 ; Combinations of drug dependence excluding opioid type drug, 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 ; Other disorder of impulse control 312.39 and Anxiety F41.9 [facility] [id number] [place] [address] 25952 -1696 11 Apr, 2015 Left knee pain M25.562 [facility] [id number] [place] [address] 86662- 5772 Apr, [facility] [id number] [place] [address] 79091- 9840 29 Mar, 2015 Unspecified episodic mood disorder 296.90 ; Anxiety F41.9 ; Other disorder of impulse control 312.39 and Combinations of drug dependence excluding opioid type drug, 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 [facility] [id number] [place] [address] 25610- 5114 Mar, Hyperpigmentation L81.9 [place] [id number] [place] [address] 65090- 5624 Mar, Arthritis M19.90 and Anxiety F41.9 [place] [id number] [place] [address] 57118- 9365 Mar, Unspecified episodic mood disorder F39 ; Combined drug dependence excluding opioids, 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 ; 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 and Anxiety F41.9 [place] [id number] [place] [address] 31122- 9051 12 Mar, 2015 Well woman exam Z01.419 ; Other fatigue R53.83 ; Hot flashes N95.1 ; Depression, unspecified depression type F32.9 and Body mass index (BMI) of 23.0-23.9 in adult Z68.23 [place] [id number] [place] [address] 41919- 4241 11 Mar, 2015 Unspecified episodic mood disorder 296.90 ; Other disorder of impulse control 312.39 and Anxiety F41.9 [place] [id number] [place] [address] 25258- 2575 11 Mar, 2015 Well woman exam Z01.419 [...] of breast Z12.39 and Limited mobility Z74.09 [place] [id number] [place], [place] [id number]- 2546 Mar, [facility] [id number] [place] [address] 99796- 9747 Mar, [facility] [id number] [place] [address] 46801- 8912 Mar, [facility] [id number] [place] [address] 94370- 1029 Mar, Other specified complication of internal orthopedic prosthetic devices, implants and grafts, initial encounter T84.89XA ; Fibromyalgia M79.7 ; Hypertension I10 ; Anemia D64.9 ; Insomnia G47.00 ; Anxiety F41.9 ; Arthritis M19.90 and Migraine G43.909 [facility] [id number] [place] [address] 01634- 8156 Mar, [facility] [address] 58112- 5272 Feb, [facility] [address] 92723- 6625 Feb, Arthritis M19.90 and Anxiety F41.9 [facility] [id number] [place] [address] 89007- 3709 Feb, [facility] [id number] [place] [address] 00808- 5056 Feb, [facility] [id number] [place] [address] 90855- 0923 Feb, [facility] [id number] [place] [address] 58828- 5997 Feb, [facility] [address] 89950- 9703 Feb, Anxiety F41.9 [facility] [id number] [place] [address] 46178- 7147 Feb, [facility] [address] 74557- 8407 Feb, [facility] [address] [address]- 5319 Feb, 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 and Fibromyalgia M79.7 [facility] [address] [address]- 2826 Feb, [facility] [id number] [place] [address] 80250- 9624 Jan, [facility] [address] [address]- 2505 Jan, [facility] [id number] [place] [address] 51927- 0061 Jan, [facility] [address] [address]- 0495 Jan, [facility] [id number] [place] [address] 80586- 9860 Jan, [facility] [address] [address]- 6036 Jan, [facility] [id number] [place] [address] 71951- 0768 Jan, [facility] [address] 4020 Jan, [facility] [address] [address]- 6746 Dec, [facility] [id number] [address]- 6667 Dec, Left knee pain M25.562 [facility] [id number] [place] [address] 025004- 2296 Dec, Left knee pain M25.562 [facility] [address], [place] [address]- 7599 Dec, Fibromyalgia M79.7 ; Hypertension I10 and Arthritis M19.90 [facility] [address] [id number] [place] [address]- 0351 Dec, [facility] [place] [facility] [address] [id number] [place] [address]- 6798 Dec, [facility] [place] [facility] [address] [facility] [id number] [place] [address]- 1656 Dec, [facility] [place] [facility] [id number] [place] [address], [place] [address]- 4600 Dec, [facility] [place] [facility] [address] [facility] [id number] [place] [address]- 6309 Nov, [facility] [place] [facility] [address] [facility] [id number] [place] [address], [place] [address]- 4246 Nov, [facility] [place] [facility] [id number] [place] [address], [place] [address]- 6621 Nov, [facility] [place] [facility] [id number] [place] [address] 72122- 8695 Nov, Hypertension I10 [facility] [place] [facility] [address] [facility] [id number] [place] [address]- 1707 23 Sep, 2014 [facility] [place] [facility] [id number] [place] [address]- 3758 17 Sep, 2014 [facility] [place] [facility] [address] [place] [address]- 8694 04 Sep, 2014 [facility] [place] [facility] [address] [facility] [id number], [place] [address]- 3490 04 Sep, 2014 [facility] [place] [facility] [address] [facility] [id number] [place] [address]- 6813 03 Oct, 2014 [facility] [place] [facility] [address] [facility] [id number], [place] [address]- 0352 Sep, [facility] [place] [facility] [id number] [place] [address]- 3693 Sep, [facility] [place] [facility] [address] [facility] [id number], [place] [address]- 5533 Sep, Hip pain associated with recalled total hip arthroplasty hardware 996.77 [facility] [place] [facility] [address] [id number] [place] [address]- 3975 Sep, [facility] [place] [facility] [address] [id number] [place] [address]- 3872 Sep, [facility] [place] [facility] [address] [id number] [place] [address]- 9625 Sep, [facility] [place] [facility] [address] [id number] [place] [address]- 1386 Aug, [facility] [place] [facility] [address] [id number] [place] [address]- 2721 Jul, [facility] [place] [facility] [address] [facility] [id number], [place] [address]- 7782 June, [facility] [address] [id number], [place] [address]- 3210 June, [facility] [place] [facility] [address] [facility] [id number], [place] [address]- 4983 June, [facility] [address] [facility] [id number], [place] [address]- 0791 June, [facility] [place] [facility] [address] [facility] [id number], [place] [address]- 5629 June, [facility] [place] [facility] [address] [id number], [place] [address]- 4909 June, [facility] [place] [facility] [address] [id number], [place] [address]- 3155 May, [facility] [place] [facility] [address] [id number], [place] [address]- 0012 May, [facility] [place] [facility] [address] [facility] [id number], [place] [address]- 2624 May, [facility] [place] [facility] [address] [facility] [id number], [place] [address]- 0666 30 Apr, 2014 [facility] [place] [facility] [address] [id number] [place] [address]- 1580 30 Apr, 2014 [facility] [place] [facility] [address] [id number] [place] [address]- 4809 Apr, [facility] [place] [facility] [address] [id number] [place] [address]- 9052 19 Apr, 2014 [facility] [place] [facility] [address] [id number] [place] [address]- 2767 Apr, [facility] [place] [facility] [address] [id number] [place] [address]- 7140 13 Apr, 2014 [facility] [place] [facility] [address] [id number] [place] [address]- 0132 Apr, [facility] [place] [facility] [address] [facility] [id number] [place] [address]- 8975 Apr, [facility] [place] [facility] [address] [facility] [id number] [place] [address]- 3539 10 Apr, 2014 [facility] [place] [facility] [address] [id number] [place] [address]- 6097 05 Apr, 2014 [facility] [place] [facility] [address] [facility] [id number] [place] [address]- 5719 05 Apr, 2014 [facility] [place] [facility] [address] [id number] [place] [address]- 9036 Mar, 2014 [facility] [place] [facility] [address] [id number] [place] [address]- 5166 Mar, 2014 [facility] [place] [facility] [address] [id number] [place] [address]- 6821 16 Mar, 2014 [facility] [place] [facility] [address] [id number] [place] 4023 16 Mar, 2014 [facility] [place] [facility] [address] [facility] [id number], [place] [address]- 5207 10 Fe2014 [facility] [place] [facility] [address] [id number] [place] [address]- 6308 Mar, [facility] [place] [facility] [address] [id number] [place] [address]- 7910 Feb, [facility] [place] [facility] [address] [id number] [place] [address]- 2574 Feb, [facility] [place] [facility] [address] [id number] [place] [address]- 3415 Feb, [facility] [place] [facility] [address] [id number] [place] [address]- 0282 Feb, [facility] [place] [facility] [address] [id number] [place] [address]- 2726 Jan, [facility] [place] [facility] [address] [id number] [place] [address]- 6860 Jan, [facility] [place] [facility] [address] [id number] [place] [address]- 1494 Jan, [facility] [place] [facility] [address] [id number] [place] [address]- 7902 Jan, [facility] [place] [facility] [address] [id number] [place] [address]- 2235 Dec, [facility] [place] [facility] [address] [id number] [place] [address]- 3465 Dec, [facility] [place] [facility] [address] [id number] [place] [address]- 5126 Dec, [facility] [place] [facility] [address] [id number] [place] [address]- 5650 Dec, [facility] [place] [facility] [address] [id number] [place] [address]- 7342 Dec, [facility] [place] [facility] [address] [id number] [place] [address]- 1363 Dec, [facility] [place] [facility] [address] [id number] [place] [address]- 3553 Dec, [facility] [place] [facility] [address] [id number] [place] [address]- 6637 Dec, [facility] [place] [facility] [address] [id number] [place] [address]- 6138 Dec, [facility] [place] [facility] [address] [id number] [place] [address]- 7962 Dec, [facility] [place] [facility] [address] [id number] [place] [address]- 7564 Dec, [facility] [place] [facility] [address] [id number] [place] [address]- 0454 31 Nov, 2013 [facility] [place] [facility] [address] [id number] [place] [address]- 2045 28 Nov, 2013 [facility] [place] [facility] [address] [id number] [place] [address]- 2447 28 Nov, 2013 [facility] [place] [facility] [address] [id number] [place] [address]- 3187 17 Nov, 2013 [facility] [place] [facility] [address] [id number] [place] [address]- 0380 17 Nov, 2013 [facility] [place] [facility] [address] [id number] [place] [address]- 7961 15 Nov, 2013 [facility] [place] [facility] [address] [id number], [place] [address]- 2105 15 Nov, 2013 [facility] [place] [facility] [address] [id number], [place] [address]- 6747 15 Nov, 2013 [facility] [place] [facility] [address] [id number] [place] [address]- 9941 15 Nov, 2013 [facility] [place] [facility] [address] [id number] [place] [address]- 7889 14 Nov, 2013 [facility] [place] [facility] [address] [id number] [place] [address]- 7192 14 Nov, 2013 [facility] [place] [facility] [address] [id number] [place] [address]- 2248 14 Nov, 2013 [facility] [place] [facility] [address] [id number] [place] [address]- 7013 14 Nov, 2013 [facility] [place] [facility] [address] [id number] [place] [address]- 8316 13 Nov, 2013 [facility] [place] [facility] [address] [id number] [place] [address]- 9167 13 Nov, 2013 [facility] [place] [facility] [address] [id number] [place] [address]- 8442 11 Nov, 2013 [facility] [place] [facility] [address] [id number] [place] [address]- 5963 11 Nov, 2013 [facility] [place] [facility] [address] [id number] [place] [address]- 7306 07 Nov, 2013 [facility] [place] [facility] [address] [id number] [place] [address]- 1141 07 Nov, 2013 [facility] [place] [facility] [address] [id number] [place] [address]- 9249 07 Nov, 2013 [facility] [place] [facility] [address] [id number] [place] [address]- 6309 07 Nov, 2013 [facility] [place] [facility] [address] [id number] [place] [address]- 2911 30 Oct, 2013 [facility] [place] [facility] [address] [id number] [place] [address]- 2540 30 Sep, 2013 [facility] [place] [facility] [address] [id number] [place] [address]- 6146 26 Sep, 2013 [facility] [place] [facility] [address] [id number] [place] [address]- 4086 26 Sep, 2013 [facility] [place] [facility] [address] [id number] [place] [address]- 1581 22 Sep, 2013 [facility] [place] [facility] [address] [id number] [place] [address]- 7598 Oct, [facility] [place] [facility] [address] [id number] [place] [address]- 6590 18 Oct, 2013 [facility] [place] [facility] [address] [id number] [place] [address]- 2256 Oct, 2013 [facility] [place] [facility] [address] [id number] [place] [address]- 3248 Oct, 2013 [facility] [place] [facility] [address] [id number] [place] [address]- 2177 Oct, 2013 [facility] [place] [facility] [address] [id number] [place] [address]- 8407 Oct, [facility] [place] [facility] [address] [id number] [place] [address]- 7143 Oct, [facility] [place] [facility] [address] [id number] [place] [address]- 2144 Oct, [facility] [place] [facility] [address] [id number] [place] [address]- 7915 Oct, [facility] [place] [facility] [address] [id number] [place] [address]- 6516 Sep, [facility] [place] [facility] [address] [id number] [place] [address]- 2092 Sep, [facility] [place] [facility] [address] [id number] [place] [address]- 6965 Sep, [facility] [place] [facility] [address] [id number] [place] [address]- 9388 Sep, [facility] [place] [facility] [address] [id number] [place] [address]- 9036 Sep, [facility] [place] [facility] [address] [id number] [place] [address]- 7153 Sep, [facility] [place] [facility] [address] [id number] [place] [address]- 1101 Sep, [facility] [place] [facility] [address] [id number], [place] [address]- 6652 Sep, [facility] [place] [facility] [address] [id number] [place] [address]- 4672 Sep, [facility] [place] [facility] [address] [id number] [place] [address]- 7990 Sep, [facility] [place] [facility] [address] [id number] [place] [address]- 3032 Sep, [facility] [place] [facility] [address] [id number] [place] [address]- 8410 Sep, [facility] [place] [facility] [address] [id number] [place] [address]- 2961 Sep, [facility] [place] [facility] [address] [id number] [place] [address]- 7009 Sep, [facility] [place] [facility] [address] [id number] [place] [address]- 9279 Sep, [facility] [place] [facility] [address] [id number] [place] [address]- 6403 Sep, [facility] [place] [facility] [address] [id number] [place] [address]- 7995 Sep, [facility] [place] [facility] [address] [id number] [place] [address]- 3745 Sep, [facility] [place] [facility] [address] [id number] [place] [address]- 2341 Aug, [facility] [place] [facility] [address] [id number] [place] [address]- 3498 Aug, [facility] [place] [facility] [address] [id number] [place] [address] Aug, [facility] [place] [facility] [address] [id number] [place] [address] Aug, [facility] [place] [facility] [address] [id number] [place] [address] Aug, [facility] [place] [facility] [address] [id number] [place] [address] Aug, [facility] [place] [facility] [address] [id number] [place] [address] Jul, [facility] [place] [facility] [address] [id number] [place] [address] Jul, [facility] [place] [facility] [address] [id number] [place] [address] Jul, [facility] [place] [facility] [address] [id number] [place] [address] Jul, [facility] [place] [facility] [address] [id number] [place] [address] June, [facility] [place] [facility] [address] [id number] [place] [address] June, [facility] [place] [facility] [address] [id number] [place] [address] June, [facility] [place] [facility] [address] [id number] [place] [address] June, [facility] [place] [facility] [address] [id number] [place] [address] June, [facility] [place] [facility] [address] [id number] [place] [address] June, [facility] [place] [facility] [address] [id number] [place] [address] June, [facility] [place] [facility] [address] [id number] [place] [address] May, [facility] [place] [facility] [address] [id number] [place] [address] May, [facility] [place] [facility] [address] [id number] [place] [address] May, [facility] [place] [facility] [address] [id number] [place] [address] May, [facility] [place] [facility] [address] [id number] [place] [address] May, [facility] [place] [facility] [address] [id number] [place] [address] 17 May, 2013 [facility] [place] [facility] [address] [id number] [place] [address] 31 Apr, 2013 [facility] [place] [facility] [address] [id number] [place] [address]- [address] 31 Apr, 2013 [facility] [place] [facility] [address] [id number] [place] [address]- [address] Apr, [facility] [place] [facility] [address] [id number] [place] [address] 28 Apr, 2013 [facility] [place] [facility] [address] [id number] [place] [address] 14 Apr, 2013 [facility] [place] [facility] [address] [id number] [place] [address] 14 Apr, 2013 [facility] [place] [facility] [address] [id number] [place] [address] Apr, [facility] [place] [facility] [address] [id number] [place] [address]- [address] 12 Apr, 2013 [facility] [place] [facility] [address] [id number] [place] [address] 10 Apr, 2013 [facility] [place] [facility] [address] [id number] [place] [address] 10 Apr, 2013 [facility] [place] [facility] [address] [id number] [place] [address]- [address] 04 Apr, 2013 [facility] [place] [facility] [address] [id number] [place] [address]- [address] 04 Apr, 2013 [facility] [place] [facility] [address] [id number] [place] [address]- [address] 03 Apr, 2013 [facility] [place] [facility] [address] [id number] [place] [address] Apr, [facility] [address] [id number] [place] [address] Mar, [facility] [place] [facility] [address] [id number] [place] [address] Mar, [facility] [address] [id number] [place] [address] Mar, [facility] [place] [facility] [address] [id number] [place] [address] Feb, [facility] [address] [id number] [place] [address] Feb, [facility] [address] [id number] [place] [address] Feb, [facility] [address] [id number] [place] [address] Feb, [facility] [address] [address] [id number] [place] [address] Feb, [facility] [place] [facility] [address] [id number] [place] [address] Feb, [facility] [address] [id number] [place] [address] Feb, [facility] [place] [facility] [address] [id number] [place] [address] 5788 Feb, [facility] [place] [facility] [address] [id number] [place] [address] 5725 Feb, [facility] [place] [facility] [address] [id number] [place] [address] Feb, [facility] [place] [facility] [address] [id number] [place] [address] 0056 Jan, [facility] [place] [facility] [address] [id number] [place] [address] 6488 Jan, [facility] [address] [id number] [place] [address] 4728 Jan, [facility] [address] [id number] [place] [address] 8086 Jan, [facility] [address] [id number] [place] [address] 3530 Jan, [facility] [place] [facility] [address] [id number] [place] [address]- 5496 Jan, [facility] [address] [id number] [place] [address] 5598 Jan, [facility] [address] [id number] [place] [address]- 0986 Jan, [facility] [address] [id number] [place] [address]- 0805 Jan, [facility] [address] [id number] [place] [address] 3087 Jan, [facility] [place] [facility] [address] [id number] [place] [address]- 9699 Jan, [facility] [address] [id number] [place] [address]- 5930 Jan, [facility] [place] [facility] [address] [id number] [place] [address]- 0870 16 Jan, 2013 [facility] [place] [facility] [address] [id number], [place] [address] 0436 Jan, [facility] [place] [facility] [address] [id number] [place] [address]- 5996 Jan, [facility] [place] [facility] [address] [id number] [place] [address]- 3826 Jan, [facility] [place] [facility] [address] [id number], [place] [address]- 2356 Jan, [facility] [place] [facility] [address] [id number], [place] [address]- 5431 05 Jan, 2013 [facility] [place] [facility] [address] [id number] [place] [address] 9159 Jan, [facility] [place] [facility] [address] [id number], [place] [address]- 4547 Jan, [facility] [place] [facility] [address] [facility] [id number] [place] [address]- 7151 Jan, [facility] [place] [facility] [address] [id number], [place] [address]- 2268 Dec, [facility] [place] [facility] [address] [id number] [place] [address]- 3545 Dec, [facility] [place] [facility] [address] [facility] [id number] [place] [address]- 9829 Dec, [facility] [place] [facility] [address] [facility] [id number], [place] [address]- 2454 Dec, [facility] [place] [facility] [address] [facility] [id number], [place] [address]- 7885 Dec, [facility] [place] [facility] [address] [facility] [id number], [place] [address]- 2244 Dec, [facility] [place] [facility] [address] [facility] [id number], [place] [address]- 3366 Dec, [facility] [place] [facility] [address] [facility] [id number], [place] [address]- 8771 Dec, [facility] [place] [facility] [address] [facility] [id number], [place] [address]- 9894 Dec, [facility] [place] [facility] [address] [facility] [id number], [place] [address]- 7362 Dec, [facility] [place] [facility] [address] [facility] [id number], [place] [address]- 7615 Nov, [facility] [place] [facility] [address] [facility] [id number], [place] [address]- 5436 Nov, [facility] [place] [facility] [address] [id number] [place] [address] 6794 18 Nov, 2012 [facility] [place] [facility] [address] [id number] [place] [address]- 5566 18 Nov, 2012 [facility] [place] [facility] [address] [id number] [place] Nov, 2012 [facility] [place] [facility] [address] [id number] [place] [address]- 4786 11 Nov, 2012 [facility] [place] [facility] [address] [id number] [place] [address]- 5944 11 Nov, 2012 [facility] [place] [facility] [address] [id number] [place] [address]- 1788 Nov, [facility] [place] [facility] [address] [id number] [place] [address]- 1832 10 Nov, 2012 [facility] [place] [facility] [address] [id number] [place] [address]- 1844 Nov, [facility] [place] [facility] [address] [id number] [place] [address]- 2905 26 Oct, 2012 [facility] [place] [facility] [address] [id number] [place] [address] 2542 26 Oct, 2012 [facility] [place] [facility] [address] [id number] [place] [address]- 2198 26 Oct, 2012 [facility] [place] [facility] [address] [id number] [place] [address] 2549 25 Oct, 2012 [facility] [place] [facility] [address] [id number] [place] [address] 2540 06 Oct, 2012 [facility] [place] [facility] [address] [id number] [place] [address] 2546 Sep, [facility] [place] [facility] [address] [id number] [place] [address] 2546 Sep, [facility] [place] [facility] [address] [id number] [place] [address]- 1671 Aug, [facility] [address] [id number] [place] [address]- 9046 Aug, [facility] [place] [facility] [address] [id number] [place] [address]- 7368 Aug, [facility] [place] [facility] [address] [id number] [place] [address]- 8381 Aug, [facility] [place] [facility] [address] [id number] [place] [address]- 5833 Aug, [facility] [address] [id number] [place] [address]- 9009 Aug, [facility] [place] [facility] [address] [id number] [place] [address]- 1677 Aug, [facility] [place] [facility] [address] [id number] [place] [address]- 5660 Jul, [facility] [place] [facility] [address] [id number] [place] [address]- 2913 Jul, [facility] [place] [facility] [address] [id number] [place] [address]- 8577 June, [facility] [place] [facility] [address] [id number] [place] [address]- 6353 June, [facility] [place] [facility] [address] [id number] [place] [address]- 8264 June, [facility] [place] [facility] [address] [id number] [place] [address]- 3975 June, [facility] [place] [facility] [address] [id number] [place] [address]- 3141 June, [facility] [place] [facility] [address] [id number] [place] [address]- 3985 June, [facility] [place] [facility] [address] [id number] [place] [address]- 1178 June, [facility] [place] [facility] [address] [id number] [place] [address]- 1673 June, [facility] [address] [id number] [place] [address]- 4521 June, [facility] [address] [id number] [place] [address]- 5888 June, [facility] [address] [id number] [place] [address]- 1607 June, [facility] [address] [id number] [place] [address]- 2600 May, [facility] [address] [id number] [place] [address]- 3887 May, [facility] [address] [id number] [place] [address]- 0922 May, [facility] [address] [id number] [place] [address]- 1033 May, [facility] [address] [id number] [place] [address]- 1247 Apr, [facility] [address] [id number] [place] [address]- 7920 Apr, [facility] [address] [id number] [place] [address]- 7816 Apr, [facility] [address] [id number] [place] [address]- 2541 Mar, [facility] [address] [id number] [place] [address]- 6147 Mar, [facility] [place] [facility] [address] [id number] [place] [address]- 8468 Feb, [facility] [place] [facility] [address] [id number] [place] [address]- 4100 Feb, [facility] [address] [id number] [place] [address]- 3367 Feb, [facility] [place] [facility] [address] [id number] [place] [address]- 4059 Feb, [facility] [address] [id number] [place] [address]- 9925 16 Feb, 2012 [facility] [address] [id number] [place] [address]- 5657 14 Feb, 2012 [facility] [address] [id number] [place] [address]- 6346 Feb, [facility] [address] [id number] [place] [address]- 3693 Jan, [facility] [address] [id number] [place] [address]- 6222 Jan, [facility] [address] [id number] [place] [address]- 4056 Jan, [facility] [address] [id number] [place] [address]- 7933 Jan, [facility] [address] [id number] [place] [address]- 6553 Jan, [facility] [address] [id number] [place] [address]- 8363 Jan, [facility] [address] [id number] [place] [address]- 7101 Jan, [facility] [address] [id number] [place] [address]- 8423 10 Jan, 2012 [facility] [address] [id number] [place] [address]- 9023 Jan, [facility] [place] [facility] [address] [id number] [place] [address]- 6267 Jan, [facility] [address] [id number] [place] [address]- 1523 Jan, [facility] [address] [id number] [place] [address]- 8358 Dec, [facility] [place] [facility] [address] [id number] [place] [address]- 5716 Dec, [facility] [place] [facility] [address] [id number] [place] [address]- 6026 Dec, [facility] [place] [facility] [address] [id number] [place] [address]- 0706 Dec, [facility] [place] [facility] [address] [id number] [place] [address]- 6680 Nov, [facility] [place] [facility] [address] [id number] [place] [address]- 9303 Nov, [facility] [place] [facility] [address] [id number] [place] [address]- 4974 Nov, [facility] [place] [facility] [address] [id number] [place] [address]- 7260 27 Oct, 2011 [facility] [place] [facility] [address] [id number] [place] [address]- 7518 24 Oct, 2011 [facility] [place] [facility] [address] [id number] [place] [address]- 4349 21 Oct, 2011 [facility] [place] [facility] [address] [id number] [place] [address]- 8732 10 Oct, 2011 [facility] [place] [facility] [address] [id number], [place] [address]- 4636 07 Oct, 2011 [facility] [place] [facility] [address] [id number], [place] [address]- 3842 Oct, [facility] [place] [facility] [address] [id number] [place] [address]- 7321 Oct, [facility] [place] [facility] [address] [id number] [place] [address]- 8750 Sep, [facility] [place] [facility] [address] [id number] [place] [address]- 0102 Sep, [facility] [place] [facility] [address] [id number] [place] [address]- 6905 Sep, [facility] [place] [facility] [address] [id number] [place] [address]- 6506 Sep, [facility] [place] [facility] [address] [id number] [place] [address]- 4626 Sep, [facility] [place] [facility] [address] [id number] [place] [address]- 7696 Aug, [facility] [place] [facility] [address] [id number] [place] [address]- 8856 Aug, [facility] [place] [facility] [address] [id number] [place] [address]- 4959 Aug, [facility] [place] [facility] [address] [id number] [place] [address]- 7516 16 Aug, 2011 [facility] [place] [facility] [address] [id number] [place] [address]- 7439 Aug, [facility] [address] [id number] [place] [address]- 1533 Aug, [facility] [place] [facility] [address] [id number] [place] [address]- 7606 Aug, [facility] [place] [facility] [address] [id number] [place] [address]- 7038 Jul, [facility] [place] [facility] [address] [id number] [place] [address]- 9450 Jul, [facility] [place] [facility] [address] [id number] [place] [address]- 0401 Jul, [facility] [place] [facility] [address] [id number] [place] [address]- 1034 Jul, [facility] [place] [facility] [address] [id number] [place] [address]- 4956 Jul, [facility] [place] [facility] [address] [id number] [place] [address]- 3247 Jul, [facility] [address] [id number] [place] [address]- 6478 07 Jul, 2011 [facility] [place] [facility] [address] [id number] [place] [address]- 4873 Jul, [facility] [place] [facility] [address] [id number] [place] [address]- 7144 Jul, [facility] [place] [facility] [address] [id number] [place] [address]- 5063 June, [facility] [place] [facility] [address] [id number] [place] [address]- 0252 June, [facility] [place] [facility] [address] [id number] [place] [address]- 4110 June, [facility] [place] [facility] [address] [id number] [place] [address]- 5980 June, [facility] [place] [facility] [address] [id number] [place] [address]- 8770 June, [facility] [place] [facility] [address] [id number] [place] [address]- 5142 June, [facility] [place] [facility] [address] [id number] [place] [address]- 2507 June, [facility] [place] [facility] [address] [id number] [place] [address]- 4878 June, [facility] [place] [facility] [address] [id number] [place] [address]- 1006 May, [facility] [place] [facility] [address] [id number] [place] [address]- 8530 May, [facility] [place] [facility] [address] [id number] [place] [address]- 3817 May, [facility] [place] [facility] [address] [id number] [place] [address]- 0960 May, [facility] [place] [facility] [address] [id number] [place] [address]- 5142 16 May, 2011 [facility] [place] [facility] [address] [id number] [place] [address]- 6136 16 May, 2011 [facility] [place] [facility] [address] [id number] [place] [address]- 9486 02 May, 2011 [facility] [place] [facility] [address] [id number] [place] [address]- 8916 27 Apr, 2011 [facility] [place] [facility] [address] [id number] [place] [address]- 7729 22 Apr, 2011 [facility] [place] [facility] [address] [id number] [place] [address]- 7972 Apr, [facility] [place] [facility] [address] [id number] [place] [address]- 3231 Apr, [facility] [place] [facility] [address] [id number] [place] [address]- 7726 Apr, [facility] [place] [facility] [address] [id number] [place] [address]- 5819 06 Apr, 2011 [facility] [place] [facility] [address] [id number] [place] [address]- 2287 Apr, [facility] [place] [facility] [address] [facility] [id number] [place] [address]- 9663 20 Mar, 2011 [facility] [place] [facility] [address] [id number] [place] [address]- 2917 20 Mar, 2011 [facility] [place] [facility] [address] [id number] [place] [address]- 8141 14 Mar, 2011 [facility] [place] [facility] [address] [id number] [place] [address]- 1802 13 Mar, 2011 [facility] [place] [facility] [address] [id number] [place] [address]- 9166 09 Mar, 2011 [facility] [place] [facility] [address] [id number] [place] [address]- 8578 08 Mar, 2011 [facility] [address] [id number] [place] [address]- 7792 08 Mar, 2011 [facility] [place] [facility] [address] [id number] [place] [address]- 6106 Feb, [facility] [place] [facility] [address] [id number] [place] [address]- 8358 Feb, [facility] [place] [facility] [address] [id number] [place] [address]- 4465 Feb, [facility] [address] [id number] [place] [address]- 1359 Feb, [facility] [place] [facility] [address] [id number] [place] [address]- 2431 Feb, [facility] [place] [facility] [address] [id number] [place] [address]- 5413 Feb, [facility] [place] [facility] [address] [id number] [place] [address]- 5955 Feb, [facility] [place] [facility] [address] [id number] [place] [address]- 1566 Feb, [facility] [place] [facility] [address] [id number], [place] [address]- 9948 Feb, [facility] [place] [facility] [address] [id number] [place] [address]- 9613 Feb, [facility] [place] [facility] [address] [id number], [place] [address]- 4516 Jan, [facility] [place] [facility] [address] [id number] [place] [address]- 3469 Jan, [facility] [place] [facility] [address] [id number] [place] [address]- 9376 Jan, [facility] [place] [facility] [address] [id number] [place] [address]- 3381 Jan, [facility] [place] [facility] [address] [id number], [place] [address]- 2452 Jan, [facility] [place] [facility] [address] [id number] [place] [address]- 4629 Jan, [facility] [place] [facility] [address] [id number] [place] [address]- 1374 15 Jan, 2011 [facility] [place] [facility] [address] [facility] [id number] [place] [address]- 9661 15 Jan, 2011 [facility] [place] [facility] [address] [id number] [place] [address]- 2032 08 Jan, 2011 [facility] [place] [facility] [address] [facility] [id number] [place] [address]- 4370 Jan, [facility] [place] [facility] [address] [id number] [place] [address]- 8691 Jan, [facility] [place] [facility] [address] [facility] [id number] [place] [address]- 1429 17 Dec, 2010 [facility] [place] [facility] [address] [id number] [place] [address]- 6669 17 Dec, 2010 [facility] [place] [facility] [address] [facility] [id number] [place] [address]- 2692 17 Dec, 2010 [facility] [place] [facility] [address] [facility] [id number] [place] [address]- 1003 16 Dec, 2010 [facility] [place] [facility] [address] [facility] [id number] [place] [address]- 3332 14 Dec, 2010 [facility] [place] [facility] [address] [id number], [place] [address]- 5230 09 Dec, 2010 [facility] [place] [facility] [address] [id number] [place] [address]- 9810 08 Dec, 2010 [facility] [place] [facility] [address] [facility] [id number] [place] [address]- 7006 07 Dec, 2010 [facility] [place] [facility] [address] [facility] [id number], [place] [address] 02 Dec, 2010 [facility] [place] [facility] [address] [id number] [place] [address] Nov, [facility] [place] [facility] [address] [id number] [place] [address] 31 Nov, 2010 [facility] [place] [facility] [address] [id number] [place] [address] Nov, [facility] [place] [facility] [address] [id number] [place] [address] Nov, [facility] [place] [facility] [address] [id number] [place] [address] 24 Nov, 2010 [facility] [place] [facility] [address] [id number] [place] [address] Nov, [facility] [place] [facility] [address] [id number] [place] [address] Aug, [facility] [place] [facility] [address] [id number] [place] [address] 14 Feb, 2010 [facility] [place] [facility] [address] [id number] [place] [address] 14 Jan, 2010 [facility] [place] [facility] [address] [id number] [place] [address] 06 Jan, 2010 [facility] [place] [facility] [address] [id number] [place] [address] Jan, [facility] [place] [facility] [address] [id number] [place] [address] Jan, [facility] [place] [facility] [address] [id number] [place] [address] Jan, [facility] [place] [facility] [address] [id number] [place] [address] Dec, [facility] [place] [facility] [address] [id number] [place] [address] 18 Dec, 2009 [facility] [place] [facility] [address] [id number] [place] [address] Dec, [facility] [address] [facility] [id number], [place] [address] Dec, [facility] [address] [facility] [id number], [place] [address] Nov, [facility] [address] [facility] [id number], [place] [address] Nov, [facility] [address] [facility] [id number], [place] [address] Nov, IMMUNIZATIONS No Known Immunizations SOCIAL HISTORY Never Assessed REASON FOR VISIT Hep C week 8 (end of tx), pt states still in pain and getting worse. Friday pt took last dose. Lora RUCKER PLAN OF CARE Activity Details Follow Up we will call Reason: VITAL SIGNS Height 68 in 2017-12-03 Weight 223.5 lbs 2017-12-03 Temperature 98.8 degrees Fahrenheit 2017-12-03 Heart Rate 80 bpm 2017-12-03 Respiratory Rate 18 2017-12-03 BMI 33.98 kg/m2 2017-12-03 Blood pressure systolic 120 mmHg 2017-12-03 Blood pressure diastolic 70 mmHg 2017-12-03 MEDICATIONS Medication Instructions Dosage Frequency Start Date End Date Duration Status Nabumetone 500 mg Orally Twice a day, pc 1 tablet 30 Active Aspirin 81 MG Orally Once a day 1 tablet 24h Active Mavyret 100-40 MG Orally Once a day 3 tablets 24h Sep, 4 weeks Not-Taking Abilify 2 MG Orally Once a day 2 tablets 24h 30 days Not-Taking Fluoxetine HCl 40 mg Orally Once a day 2 capsule in the morning 24h 30 Active Fentanyl 50 MCG/HR Transdermal 48 hrs 1 patch to skin Nov, 30 days Active Furosemide 20 mg Orally Once a day 1 tablet 24h Active Clonidine HCl 0.1 MG Orally twice a day 1 tablet 12h 30 Active Pantoprazole Sodium 40 mg Orally Once a day 1 tablet 24h 30 days Active Promethazine HCl 25 MG Orally every 12 hrs 1 tablet as needed 12h 30 Active Tizanidine HCl 4 MG Orally Three times a day 1 tablet as needed 8h May, Active Saxenda (Dose Escalation) 18 mg/3 mL Subcutaneous Once a day 0.6 mg QD x 7 days, 1.2 mg QD x 7 days, 1.8 mg QD x 7 days, 2.4 mg QD x 7 days, then 3 mg QD ( GOAL) 24h 10 Aug, 2017 Unknown Sumatriptan Succinate 100 mg Orally Once a day 1 tablet as needed one time 24h 30 Active Lyrica 150 MG Orally 3 times a day 1 capsule 8h 28 days Active Klonopin 1 MG Orally 3 times [...]
--- OUTSIDE RECORDS SUMMARY | 2018-01-13 20:35 | XMS REPORT ---
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 Active 079826862 Problem Hypertension I10 Active 85504520 Problem Arthritis M19.90 Active 3813312 Problem 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 Active 35978942 Problem Anxiety F41.9 Active 83364611 Problem Unspecified episodic mood disorder F39 Active 33833035 Problem Left hip pain M25.552 Active 80211165 ALLERGIES No Information ENCOUNTERS Encounter Location Date Diagnosis [facility] [address] [facility] [id number] [address] Dec, [facility] [id number] [address] 24 Nov, 2017 Chronic hepatitis C without hepatic coma B18.2 and Screening for malignant neoplasm of breast Z12.31 [facility] [id number] [place] [address] 60505- 6575 Nov, [facility] [id number] [place] [address] 61823- 2316 Nov, Chronic hepatitis C without hepatic coma B18.2 [facility] [id number] [place] [address] 99196- 7906 Nov, [facility] [address] [address]58- 6777 Nov, Arthritis M19.90 and Unspecified episodic mood disorder F39 [facility] [id number] [place] [address] 92566- 2363 Oct, [facility] [id number] [place] [address] 69246- 6616 Oct, Chronic hepatitis C without hepatic coma B18.2 and Encounter for immunization Z23 [facility] [id number] [place] [address] 32273- 3215 Oct, [facility] [id number] [place] [address] 25172- 2048 Oct, Arthritis M19.90 and Unspecified episodic mood disorder F39 [facility] [id number] [place] [address] 51098- 8144 Sep, Chronic hepatitis C without hepatic coma B18.2 [facility] [id number] [place] [address] 03065- 6448 Sep, Gastroesophageal reflux disease, esophagitis presence not specified K21.9 and Other chronic pain G89.29 [facility] [id number] [place] [address] 60629- 8659 Sep, [facility] [id number] [place] [address] 73005- 1390 Sep, [facility] [id number] [place] [address] 80472- 0303 Sep, Chronic hepatitis C without hepatic coma B18.2 [facility] [address] [address] 2170 Sep, 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 [facility] [id number] [place] [address] 91297- 6367 Sep, Arthritis M19.90 [facility] [id number] [place] [address] 85931- 7130 Sep, [facility] [id number] [place] [address] 33648- 9750 Sep, Unspecified episodic mood disorder F39 [facility] [id number] [place] [address] 78082- 0413 Aug, [facility] [id number] [place] [address] [id number] Aug, [facility] [id number] [place] [address] 76726- 2176 Aug, Arthritis M19.90 [facility] [id number] [place] [address] 96494- 6276 Aug, [facility] [id number] [place] [address] 04020- 0940 Aug, Obesity (BMI 30.0-34.9) E66.9 ; Unspecified episodic mood disorder F39 and Hypertension I10 [facility] [id number] [place] [address] 57119- 0218 Aug, Unspecified episodic mood disorder F39 [facility] [address] [address] 1338 Aug, [facility] [id number] [place] [address] 27752- 4616 Jul, Unspecified episodic mood disorder F39 [facility] [address] [address] 5121 Jul, [facility] [id number] [address] 5991 13 Jul, 2017 Arthritis M19.90 [facility] [id number] [place] [address] 43223- 3298 Jul, Left hip pain M25.552 ; Hypertension I10 ; Other obesity due to excess calories E66.09 and Body mass index (BMI) of 34.0-34.9 in adult Z68.34 [facility] [id number] [address] 8080 Jul, Unspecified episodic mood disorder F39 [facility] [id number] [address]- 8374 June, Gastroesophageal reflux disease, esophagitis presence not specified K21.9 [facility] [id number] [address]- 1816 June, [facility] [id number] [address]- 6356 June, [facility] [address] [address]- 6133 June, Arthritis M19.90 [facility] [address] [address]- 9596 June, [facility] [id number] [address]- 4195 June, [facility] [address] [address]- 2807 June, Unspecified episodic mood disorder F39 [facility] [address] [address]- 1084 May, Unspecified episodic mood disorder F39 [facility] [address] [address]- 2429 May, [facility] [address] [address]- 1095 May, Arthritis M19.90 [facility] [address] [address] May, Dysuria R30.0 ; Abscess L02.91 and Acute cystitis without hematuria N30.00 [facility] [id number] [place] [address] 45303- 3723 May, 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 ; Unspecified episodic mood disorder F39 ; Combined drug dependence excluding opioids, 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 ; Anxiety F41.9 and Other psychoactive substance dependence, 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 [place] [id number] [place] [address] 75663- 4312 May, [place] [id number] [place] [address] 53855- 2665 May, 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 ; Unspecified episodic mood disorder F39 ; Combined drug dependence excluding opioids, 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 ; Other psychoactive substance dependence, 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 and Anxiety F41.9 [place] [id number] [place] [address] 36313- 8674 May, Other chronic pain G89.29 ; Left hip pain M25.552 ; Hypertension I10 ; 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, 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 and Unspecified episodic mood disorder F39 [place] [id number] [place] [address] 60422- 4486 Apr, [facility] [id number] [place] [address] 56119 -3317 Apr, Neck pain M54.2 ; Left hip pain M25.552 and Fall, initial encounter W19.XXXA [place] [id number] [place] [address] 52266- 3501 Apr, Unspecified episodic mood disorder F39 ; Combined drug dependence excluding opioids, 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 ; Anxiety F41.9 ; Other psychoactive substance dependence, 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 and 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 [place] [id number] [address]- 4037 Apr, [facility] [id number] [place] [address] 71058- 9853 Apr, Arthritis M19.90 and Unspecified episodic mood disorder F39 [facility] [id number] [place] [address] 28687- 1429 Apr, Unspecified episodic mood disorder F39 [facility] [id number] [place] [address] 24333- 6431 Apr, [facility] [id number] [place] [address] 34930- 6600 Apr, [facility] [id number] [place] [address] 33343- 5606 Apr, Unspecified episodic mood disorder F39 ; Combined drug dependence excluding opioids, 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 ; Anxiety F41.9 ; Other psychoactive substance dependence, 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 and 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 [facility] [id number] [place] [address] 34637- 5749 Mar, Unspecified episodic mood disorder F39 [facility] [id number] [place] [address] 79828- 2746 Mar, Gastroesophageal reflux disease, esophagitis presence not specified K21.9 [facility] [id number] [place] [address] 90077- 2361 Mar, Arthritis M19.90 and Unspecified episodic mood disorder F39 [facility] [id number] [address]- 1531 Feb, [facility] [id number] [place] [address] 32246- 4383 Feb, [facility] [id number] [place] [address] 93805- 8628 Feb, [facility] [id number] [place] [address] 84502- 8749 Feb, Arthritis M19.90 [facility] [address] [address]- 7483 Feb, Non-pressure chronic ulcer of right calf, 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 [place] [id number] [place] [address] 66767- 0911 Jan, Chronic hepatitis C without hepatic coma B18.2 [place] [id number] [place] [address] 67527- 5381 Jan, Encounter for immunization Z23 ; Venous insufficiency ( chronic) (peripheral) I87.2 ; Non-pressure chronic ulcer of unspecified calf limited to breakdown of skin L97.201 and Gastroesophageal reflux disease, esophagitis presence not specified K21.9 [place] [address] [address]- 8588 Jan, [place] [id number] [place] [address] 86081- 2099 Jan, Chronic hepatitis C without hepatic coma B18.2 and Encounter for immunization Z23 [place] [id number] [place] [address] 30271- 3406 Jan, Arthritis M19.90 [facility] [id number] [place] [address] 74356- 9858 Jan, [facility] [id number] [place] [address] 82003- 9325 Dec, [facility] [id number] [place] [address] 79045- 2272 Dec, Unspecified episodic mood disorder F39 [facility] [address] 92927- 7202 Dec, Arthritis M19.90 [facility] [id number] [place] [address] 07153- 0692 Dec, Arthritis M19.90 [facility] [id number] [place] [address] 46365- 8025 Nov, [facility] [id number] [place] [address] 45906- 5605 Nov, [facility] [id number] [place] [address] 00843- 5084 Nov, Other psychoactive substance dependence, 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 ; 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, 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 and Chronic hepatitis C without hepatic coma B18.2 [facility] [id number] [place] [address] 11286- 0461 Nov, Arthritis M19.90 [facility] [id number] [place] [address] 82896 -2874 Oct, Partial thickness burn of abdomen, initial encounter T21.22XA [facility] [id number] [place] [address] 42440- 9219 Oct, [facility] [id number] [place] [address] 74597- 6107 Sep, Arthritis M19.90 [facility] [id number] [place] [address] 67782- 2631 Sep, [facility] [id number] [place] [address] 91875- 0530 Sep, [facility] [id number] [address]- 3591 Sep, Unspecified episodic mood disorder F39 ; Chronic hepatitis C without hepatic coma B18.2 and Left hip pain M25.552 [facility] [id number] [address]- 0804 Sep, Arthritis M19.90 and Left hip pain M25.552 [facility] [id number] [place] [address] 04037- 0149 Aug, [facility] [id number] [place] [address] 51083- 8326 Aug, [facility] [id number] [address]- 8852 Aug, Chronic hepatitis C without hepatic coma B18.2 [facility] [id number] [place] [address] 62871- 1756 Aug, [facility] [id number] [address]- 6775 Aug, Chronic hepatitis C without hepatic coma B18.2 [facility] [id number] [address]- 4435 Aug, 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, 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 [facility] [id number] [address]- 3803 Aug, [facility] [id number] [address]- 9069 Aug, Chronic hepatitis C without hepatic coma B18.2 and Hypertension I10 [facility] [id number] [address]- 3626 Jul, [facility] [id number] [address]- 7567 June, [facility] [id number] [place] [address] 03917- 5297 Apr, Fibromyalgia M79.7 ; Left hip pain M25.552 and Decubitus ulcer of sacral region, stage 1 L89.151 [facility] [id number] [place] [address] 65975- 7279 Apr, [facility] [id number] [place] [address] 28039- 1929 Apr, [facility] [id number] [place] [address] 30600- 3497 Feb, [facility] [id number] [place] [address] 36950- 9763 Dec, Anxiety F41.9 ; Combined drug dependence excluding opioids, 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 and Unspecified episodic mood disorder F39 [facility] [id number] [place] [address] 44000- 3452 Dec, [facility] [id number] [place] [address] 18727- 0417 Nov, [facility] [id number] [place] [address] 64483- 9589 Nov, [facility] [id number] [place] [address] 22017- 1950 10 Nov, 2015 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 and Anxiety F41.9 [facility] [id number] [place] [address] 41113- 2749 Oct, [facility] [id number] [place] [address] 00094 -1795 14 Oct, 2015 Open wound of left thigh, initial encounter S71.102A [facility] [id number] [place] [address] 99034- 4440 12 Oct, 2015 [facility] [id number] [place] [address] 65250- 7913 Sep, Unspecified episodic mood disorder F39 ; Other disorder of impulse control 312.39 ; Combined drug dependence excluding opioids, 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 and Anxiety F41.9 [facility] [id number] [place] [address] 11572- 0445 Sep, Other disorder of impulse control 312.39 ; Combined drug dependence excluding opioids, 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 ; Anxiety F41.9 and Unspecified episodic mood disorder F39 [facility] [id number] [place] [address] 67641- 2587 Sep, Other chronic pain G89.29 [facility] [id number] [place] [address] 23248- 0968 Sep, [facility] [id number] [place] [address] 07015- 6959 Sep, [facility] [id number] [place] [address] 85996- 8488 Aug, [facility] [id number] [place] [address] 46126- 7951 Aug, [facility] [id number] [place] [address] 27224- 3148 Aug, [facility] [id number] [place] [address] 98535- 6498 Jul, [facility] [id number] [place] [address] 52351- 0250 Jul, [facility] [id number] [place] [address] 45037- 7691 Jul, [facility] [id number] [place] [address] 07215- 5276 Jul, Arthritis M19.90 ; Chronic hepatitis C without hepatic coma B18.2 and Left hip pain M25.552 [facility] [id number] [place] [address] 01170- 4040 13 Jul, 2015 Left knee pain M25.562 [facility] [id number] [place] [address] 64978- 3168 Jul, Combined drug dependence excluding opioids, 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 ; Anxiety F41.9 ; Other disorder of impulse control 312.39 and Unspecified episodic mood disorder F39 [facility] [address] [address]- 1983 Jul, Left knee pain M25.562 [facility] [id number] [place] [address] 79557- 5829 Jul, Left knee pain M25.562 and Left hip pain M25.552 [facility] [id number] [place] [address] 55889- 3062 Jul, [facility] [id number] [place] [address] 09675- 1831 June, [facility] [id number] [place] [address] 61398- 1544 June, Combinations of drug dependence excluding opioid type drug, 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 ; Other disorder of impulse control 312.39 ; Unspecified episodic mood disorder F39 and Anxiety F41.9 [facility] [id number] [place] [address] 68373- 0148 June, Other fatigue R53.83 ; Headache R51 and Left knee pain M25.562 [facility] [address] [address]- 8335 June, Unspecified episodic mood disorder F39 ; Combinations of drug dependence excluding opioid type drug, 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 ; Other disorder of impulse control 312.39 and Anxiety F41.9 [facility] [address] [address]- 1532 June, Anxiety F41.9 [facility] [id number] [place] [address] 58347- 8104 June, Pain in left knee M25.562 [facility] [id number] [place] [address] 96392- 3538 June, Anxiety F41.9 and Combinations of drug dependence excluding opioid type drug, 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 [facility] [id number] [place] [address] 83912- 4495 June, Unspecified episodic mood disorder 296.90 ; Combinations of drug dependence excluding opioid type drug, 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 and Other disorder of impulse control 312.39 [facility] [id number] [place] [address] 44547- 8984 June, Anxiety F41.9 and Unspecified episodic mood disorder 296.90 [facility] [id number] [place] [address] 38593- 8884 May, Arthritis M19.90 [facility] [id number] [place] [address] 63029- 7593 May, Arthritis M19.90 [facility] [id number] [place] [address] 42923- 7504 May, Anxiety F41.9 ; Combinations of drug dependence excluding opioid type drug, 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 and Other disorder of impulse control 312.39 [facility] [id number] [place] [address] [phone]- [phone] May, Left knee pain M25.562 [facility] [id number] [place] [address] 54036- 2774 May, Arthritis M19.90 [facility] [id number] [place] [address] [phone]- [phone] May, [facility] [id number] [place] [address] [phone]- 6172 May, Anxiety F41.9 ; Unspecified episodic mood disorder 296.90 ; Combinations of drug dependence excluding opioid type drug, 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 and Other disorder of impulse control 312.39 [facility] [id number] [place] [address] [phone]- [phone] May, Left knee pain M25.562 [facility] [id number] [address] May, Left knee pain M25.562 ; Combinations of drug dependence excluding opioid type drug, 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 ; Other disorder of impulse control 312.39 ; Fibromyalgia M79.7 ; Hypertension I10 ; Unspecified episodic mood disorder 296.90 and Left hip pain M25.[id number] [place] [address] [phone]- [phone] May, Unspecified episodic mood disorder 296.90 ; Other disorder of impulse control 312.39 ; Combinations of drug dependence excluding opioid type drug, 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 and Anxiety F41.9 [id number] [place] [address] [phone]- 2601 May, Left knee pain M25.562 ; Combinations of drug dependence excluding opioid type drug, 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 ; Other disorder of impulse control 312.39 ; Fibromyalgia M79.7 ; Hypertension I10 ; Unspecified episodic mood disorder 296.90 and Left hip pain M25.552 [place] [id number] [place] [address] 49029- 0479 May, Anxiety F41.9 ; Unspecified episodic mood disorder 296.90 ; Other disorder of impulse control 312.39 and Combinations of drug dependence excluding opioid type drug, 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 [place] [address] [address] Apr, 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 and 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, implants and grafts, initial encounter T84.82XA [place] [id number] [place] [address] 20485- 0302 Apr, Anxiety F41.9 ; Unspecified episodic mood disorder 296.90 ; Combinations of drug dependence excluding opioid type drug, 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 and Other disorder of impulse control 312.39 [place] [address] [address] 3734 Apr, Arthritis M19.90 [place] [id number] [address] 4248 Apr, Anxiety F41.9 ; Unspecified episodic mood disorder 296.90 ; Combinations of drug dependence excluding opioid type drug, 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 and Other disorder of impulse control 312.39 [facility] [address] [address] 1182 17 Apr, 2015 Arthritis M19.90 [facility] [id number] [place] [address] 98805- 4392 15 Apr, 2015 [facility] [id number] [place] [address] 56445- 8786 15 Apr, 2015 [facility] [id number] [place] [address] 90288- 0141 14 Apr, 2015 Unspecified episodic mood disorder 296.90 ; Combinations of drug dependence excluding opioid type drug, 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 ; Other disorder of impulse control 312.39 and Anxiety F41.9 [facility] [id number] [place] [address] 45162 -7787 Apr, Left knee pain M25.562 [facility] [id number] [place] [address] 74056- 7444 Apr, [facility] [id number] [place] [address] 02291- 3440 Mar, Unspecified episodic mood disorder 296.90 ; Anxiety F41.9 ; Other disorder of impulse control 312.39 and Combinations of drug dependence excluding opioid type drug, 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 [facility] [id number] [place] [address] 98429- 6269 Mar, Hyperpigmentation L81.9 [facility] [id number] [place] [address] 13007- 1475 Mar, Arthritis M19.90 and Anxiety F41.9 [facility] [address] [id number] [place] [address] 08803- 8155 Mar, Unspecified episodic mood disorder F39 ; Combined drug dependence excluding opioids, 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 ; 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 and Anxiety F41.9 [place] [address] [id number] [place] [address] 81105- 0580 12 Mar, 2015 Well woman exam Z01.419 ; Other fatigue R53.83 ; Hot flashes N95.1 ; Depression, unspecified depression type F32.9 and Body mass index (BMI) of 23.0-23.9 in adult Z68.23 [place] [address] [id number] [place] [address] 94804- 2066 11 Mar, 2015 Unspecified episodic mood disorder 296.90 ; Other disorder of impulse control 312.39 and Anxiety F41.9 [place] [address] [id number] [place] [address] 54261- 5500 11 Mar, 2015 Well woman exam Z01.419 [...] of breast Z12.39 and Limited mobility Z74.09 [place] [id number] [place] [address] 58498- 4640 Mar, [place] [address] [id number] [place] [address] 62268- 7980 10 Mar, 2015 [place] [address] [id number] [place] [address] 09370- 3317 08 Mar, 2015 [place] [address] 16753- 3742 Mar, Other specified complication of internal orthopedic prosthetic devices, implants and grafts, initial encounter T84.89XA ; Fibromyalgia M79.7 ; Hypertension I10 ; Anemia D64.9 ; Insomnia G47.00 ; Anxiety F41.9 ; Arthritis M19.90 and Migraine G43.909 [facility] [address] 45384- 0601 Mar, [facility] [address] 56984- 9472 Feb, [facility] [address] 03105- 9123 Feb, Arthritis M19.90 and Anxiety F41.9 [facility] [address] 86659- 0185 Feb, [facility] [address] 17870- 2202 Feb, [facility] [address] 16260- 0073 Feb, [facility] [address] 45745- 2214 Feb, [facility] [address] [id number] [place] [address] 00431- 7108 Feb, Anxiety F41.9 [facility] [address] 59804- 3372 Feb, [facility] [address] [address] [id number] [place] [address] 12460- 3011 Feb, [place] [address] 37321- 8498 Feb, 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 and Fibromyalgia M79.7 [facility] [address] [id number] [place] [address] 96465- 1267 Feb, [place] [address] [place] [address]- 6423 Jan, [facility] [address] [address]- 7008 Jan, [facility] [address] [address]- 3987 Jan, [facility] [address] [address]- 7168 Jan, [facility] [address] [address]- 1172 Jan, [facility] [id number] [place] [address] 54181- 5324 Jan, [facility] [id number] [place] [address] 79031- 3565 Jan, [facility] [id number] [place] [address] 87210- 3092 Jan, [facility] [address] [address]- 5169 Dec, [facility] [id number] [place] [address] 61718- 5771 Dec, Left knee pain M25.562 [facility] [address] [address]- 5326 Dec, Left knee pain M25.562 [facility] [address] [address]- 9618 Dec, Fibromyalgia M79.7 ; Hypertension I10 and Arthritis M19.90 [facility] [address] [address]- 8208 Dec, [facility] [address] [address]- 5243 Dec, [facility] [address] [address]- 5454 Dec, [facility] [address] [id number] [address]- 4255 Dec, [facility] [place] [facility] [address] [facility] [id number] [address]- 7945 Nov, [facility] [place] [facility] [address] [facility] [id number] [address]- 0977 Nov, [facility] [place] [facility] [address] [facility] [id number] [place] [address] 71938- 7041 Nov, [facility] [place] [facility] [address] [id number] [place] [address] 72724- 8272 Nov, Hypertension I10 [facility] [place] [facility] [address] [facility] [id number] [place] [address], [place] [address]- 6619 23 Oct, 2014 [facility] [place] [facility] [address] [facility] [id number] [address]- 5300 17 Oct, 2014 [facility] [place] [facility] [address] [facility] [id number] [place] [address] 42609- 9796 Oct, 2014 [facility] [place] [facility] [address] [facility] [id number] [address]- 6795 Oct, [facility] [place] [facility] [address] [place] [id number] [address]- 2113 Oct, [facility] [place] [facility] [address] [facility] [id number] [place] [address]- 1115 Sep, [facility] [place] [facility] [address] [facility] [id number] [address]- 0909 Sep, [facility] [place] [facility] [address] [facility] [id number] [place] [address]- 4934 Sep, Hip pain associated with recalled total hip arthroplasty hardware 996.77 [facility] [place] [facility] [address] [id number] [address]- 5419 Sep, [facility] [place] [facility] [address] [facility] [id number] [address]- 2551 Sep, [facility] [place] [facility] [address] [id number] [place] [address]- 2546 Sep, [facility] [place] [facility] [address] [id number] [place] [address]- 1292 Aug, [facility] [place] [facility] [address] [id number] [place] [address]- 2546 Jul, [facility] [place] [facility] [address] [id number] [place] [address]- 3576 June, [facility] [place] [facility] [address] [id number] [place] [address]- 5956 June, [facility] [place] [facility] [address] [id number] [place] [address]- 8366 June, [facility] [place] [facility] [address] [id number] [place] [address]- 6066 June, [facility] [place] [facility] [address] [id number] [place] [address]- 4343 June, [facility] [place] [facility] [address] [id number] [place] [address]- 9631 June, [facility] [place] [facility] [address] [id number] [place] [address]- 7130 May, [facility] [place] [facility] [address] [id number] [place] [address]- 2595 May, [facility] [place] [facility] [address] [id number] [place] [address]- 7469 May, [facility] [place] [facility] [address] [id number] [place] [address]- 2549 Apr, [facility] [place] [facility] [address] [id number] [place] [address]- 5086 Apr, [facility] [place] [facility] [address] [id number] [place] [address]- 2546 Apr, [facility] [place] [facility] [address] [id number] [place] [address]- 7944 Apr, [facility] [place] [facility] [address] [id number] [place] [address]- 7698 Apr, [facility] [place] [facility] [address] [id number] [place] [address]- 8884 Apr, [facility] [place] [facility] [address] [id number] [place] [address]- 9667 Apr, [facility] [place] [facility] [address] [id number] [place] [address]- 7168 Apr, [facility] [place] [facility] [address] [id number] [place] [address]- 4080 Apr, [facility] [place] [facility] [address] [id number] [place] [address]- 0556 Apr, [facility] [place] [facility] [address] [facility] [id number] [place] [address]- 8492 Apr, [facility] [place] [facility] [address] [id number] [place] [address]- 1595 Mar, [facility] [place] [facility] [address] [id number] [place] [address]- 0093 Mar, [facility] [place] [facility] [address] [facility] [id number] [place] [address]- 7267 16 Mar, 2014 [facility] [place] [facility] [address] [id number] [place] [address]- 2730 16 Mar, 2014 [facility] [place] [facility] [address] [id number] [place] [address]- 6520 Mar, [facility] [place] [facility] [address] [id number] [place] [address]- 7282 Mar, [facility] [place] [facility] [address] [facility] [id number] [place] [address]- 6413 15 Feb, 2014 [facility] [place] [facility] [address] [id number] [place] [address]- 1092 Feb, [facility] [place] [facility] [address] [id number] [place] [address]- 9505 Feb, [facility] [place] [facility] [address] [id number] [place] [address]- 8116 Feb, [facility] [place] [facility] [address] [id number] [place] [address]- 1440 Jan, [facility] [place] [facility] [address] [id number] [place] [address]- 8930 Jan, [facility] [place] [facility] [address] [id number] [place] [address]- 7508 Jan, [facility] [place] [facility] [address] [id number] [place] [address]- 8483 Jan, [facility] [place] [facility] [address] [id number] [place] [address]- 7950 Dec, [facility] [place] [facility] [address] [id number] [place] [address]- 7000 Dec, [facility] [place] [facility] [address] [id number] [place] [address]- 2497 Dec, [facility] [place] [facility] [address] [id number] [place] [address]- 7233 Dec, [facility] [place] [facility] [address] [id number] [place] [address]- 4998 Dec, [facility] [place] [facility] [address] [id number] [place] [address]- 3784 Dec, [facility] [place] [facility] [address] [id number] [place] [address]- 2068 Dec, [facility] [place] [facility] [address] [id number] [place] [address]- 9556 Dec, [facility] [place] [facility] [address] [id number] [place] [address]- 4626 Dec, [facility] [place] [facility] [address] [id number] [place] [address]- 2122 Dec, [facility] [place] [facility] [address] [id number] [place] [address]- 3369 07 Dec, 2013 [facility] [place] [facility] [address] [id number] [place] [address]- 5396 31 Nov, 2013 [facility] [place] [facility] [address] [id number] [place] [address]- 4910 28 Nov, 2013 [facility] [place] [facility] [address] [id number] [place] [address]- 8064 28 Nov, 2013 [facility] [place] [facility] [address] [id number] [place] [address]- 8752 17 Nov, 2013 [facility] [place] [facility] [address] [id number] [place] [address]- 4464 17 Nov, 2013 [facility] [place] [facility] [address] [id number] [place] [address]- 5104 15 Nov, 2013 [facility] [place] [facility] [address] [id number] [place] [address]- 2133 15 Nov, 2013 [facility] [place] [facility] [address] [id number] [place] [address]- 4137 15 Nov, 2013 [facility] [place] [facility] [address] [id number] [place] [address]- 2653 15 Nov, 2013 [facility] [place] [facility] [address] [id number] [place] [address]- 0300 14 Nov, 2013 [facility] [place] [facility] [address] [id number] [address]- 2110 14 Nov, 2013 [facility] [place] [facility] [address] [id number] [place] [address]- 0202 14 Nov, 2013 [facility] [place] [facility] [address] [id number] [place] [address]- 6481 14 Nov, 2013 [facility] [place] [facility] [address] [id number] [place] [address]- 9379 13 Nov, 2013 [facility] [place] [facility] [address] [id number] [place] [address]- 5471 13 Nov, 2013 [facility] [place] [facility] [address] [id number] [place] [address]- 8807 11 Nov, 2013 [facility] [place] [facility] [address] [id number] [place] [address]- 5239 11 Nov, 2013 [facility] [place] [facility] [address] [id number] [place] [address]- 6672 07 Nov, 2013 [facility] [place] [facility] [address] [id number] [place] [address]- 2385 07 Nov, 2013 [facility] [place] [facility] [address] [id number] [place] [address]- 9666 07 Nov, 2013 [facility] [place] [facility] [address] [id number] [place] [address]- 8782 07 Nov, 2013 [facility] [place] [facility] [address] [id number] [place] [address]- 0992 30 Sep, 2013 [facility] [place] [facility] [address] [id number] [place] [address]- 4877 30 Sep, 2013 [facility] [place] [facility] [address] [id number] [place] [address]- 0708 26 Sep, 2013 [facility] [place] [facility] [address] [facility] [id number] [place] [address]- 3123 26 Sep, 2013 [facility] [place] [facility] [address] [id number] [place] [address]- 8989 22 Sep, 2013 [facility] [place] [facility] [address] [id number] [place] [address]- 2547 22 Sep, 2013 [facility] [place] [facility] [address] [id number] [place] [address]- 0442 18 Sep, 2013 [facility] [place] [facility] [address] [id number] [place] [address]- 2543 18 Sep, 2013 [facility] [place] [facility] [address] [id number] [place] [address]- 9676 18 Sep, 2013 [facility] [place] [facility] [address] [id number] [place] [address]- 7444 18 Oct, 2013 [facility] [place] [facility] [address] [id number] [place] [address]- 1985 Oct, [facility] [place] [facility] [address] [id number] [place] [address]- 9310 Oct, [facility] [place] [facility] [address] [id number] [place] [address]- 9431 Oct, [facility] [place] [facility] [address] [id number] [place] [address]- 4142 Oct, [facility] [place] [facility] [address] [id number] [place] [address]- 0986 Sep, [facility] [place] [facility] [address] [id number] [place] [address]- 7942 Sep, [facility] [place] [facility] [address] [id number] [place] [address]- 2326 Sep, [facility] [place] [facility] [address] [id number] [place] [address]- 6909 Sep, [facility] [place] [facility] [address] [id number] [place] [address]- 1173 Sep, [facility] [place] [facility] [address] [id number] [place] [address]- 2587 Sep, [facility] [place] [facility] [address] [id number] [place] [address]- 1296 Sep, [facility] [place] [facility] [address] [id number] [place] [address]- 1731 Sep, [facility] [place] [facility] [address] [id number] [place] [address]- 0890 Sep, [facility] [place] [facility] [address] [id number] [place] [address]- 0488 Sep, [facility] [place] [facility] [address] [id number] [place] [address]- 6026 Sep, [facility] [place] [facility] [address] [id number] [place] [address]- 9810 Sep, [facility] [place] [facility] [address] [id number] [place] [address]- 0533 Sep, [facility] [place] [facility] [address] [id number] [place] [address]- 8477 Sep, [facility] [place] [facility] [address] [id number] [place] [address]- 3026 Sep, [facility] [place] [facility] [address] [id number] [place] [address]- 5329 Sep, [facility] [place] [facility] [address] [id number] [place] [address]- 7352 Sep, [facility] [place] [facility] [address] [id number] [place] [address]- 1255 Sep, [facility] [place] [facility] [address] [id number] [place] [address]- 6035 Aug, [facility] [place] [facility] [address] [id number] [place] [address]- 7965 Aug, [facility] [place] [facility] [address] [id number] [place] [address]- 6049 Aug, [facility] [place] [facility] [address] [id number] [place] [address]- 7341 Aug, [facility] [place] [facility] [address] [id number] [place] [address]- 0208 Aug, [facility] [place] [facility] [address] [id number] [place] [address]- 7869 Aug, [facility] [place] [facility] [address] [id number] [place] [address]- 5488 Jul, [facility] [place] [facility] [address] [id number] [place] [address]- 7050 Jul, [facility] [place] [facility] [address] [id number] [place] [address] Jul, [facility] [address] [id number] [place] [address] Jul, [facility] [address] [id number] [place] [address] June, [facility] [address] [id number] [place] [address] June, [facility] [address] [id number] [place] [address] 2011 June, [facility] [address] [id number] [place] [address] June, [facility] [address] [id number] [place] [address] June, [facility] [address] [id number] [place] [address] June, [facility] [address] [id number] [place] [address] June, [facility] [address] [id number] [place] [address] May, [facility] [address] [id number] [place] [address] May, [facility] [place] [facility] [address] [id number] [place] [address] May, [facility] [place] [facility] [address] [id number] [place] [address] May, [facility] [place] [facility] [address] [id number] [place] [address] May, [facility] [place] [facility] [address] [id number] [place] [address] May, [facility] [place] [facility] [address] [id number] [place] [address] Apr, [facility] [place] [facility] [address] [id number] [place] [address] 31 Apr, 2013 [facility] [place] [facility] [address] [id number] [place] [address] 28 Apr, 2013 [facility] [place] [facility] [address] [id number] [place] [address] 28 Apr, 2013 [facility] [place] [facility] [address] [id number] [place] [address] 14 Apr, 2013 [facility] [place] [facility] [address] [id number] [place] [address] 14 Apr, 2013 [facility] [place] [facility] [address] [id number] [place] [address] Apr, [facility] [place] [facility] [address] [id number] [place] [address] Apr, [facility] [place] [facility] [address] [id number] [place] [address] 10 Apr, 2013 [facility] [place] [facility] [address] [id number] [place] [address] 10 Apr, 2013 [facility] [place] [facility] [address] [id number] [place] [address] 04 Apr, 2013 [facility] [place] [facility] [address] [id number] [place] [address] Apr, [facility] [place] [facility] [address] [id number] [place] [address] Apr, [facility] [place] [facility] [address] [id number] [place] [address] Apr, [facility] [place] [facility] [address] [id number] [place] [address] Mar, [facility] [place] [facility] [address] [id number] [place] [address] Mar, [facility] [place] [facility] [address] [id number] [address] Mar, [facility] [address] [id number] [place] [address] Feb, [facility] [address] [id number] [place] [address] Feb, [facility] [address] [id number] [place] [address] Feb, [facility] [place] [facility] [address] [id number] [place] [address] Feb, [facility] [address] [id number] [place] [address] Feb, [facility] [address] [id number] [place] [address] Feb, [facility] [address] [facility] [id number] [place] [address] Feb, [facility] [address] [id number] [place] [address] Feb, [facility] [address] [id number] [place] [address] Feb, [facility] [address] [facility] [id number] [place] [address] Feb, [facility] [address] [id number] [place] [address] Jan, [facility] [place] [facility] [address] [id number] [address] Jan, [facility] [place] [facility] [address] [id number] [place] [address] Jan, [facility] [place] [facility] [address] [id number] [place] [address]- [address] Jan, [facility] [place] [facility] [address] [id number] [place] [address] Jan, [facility] [place] [facility] [address] [id number] [place] [address]- [address] 24 Jan, 2013 [facility] [place] [facility] [address] [id number] [place] [address] Jan, [facility] [place] [facility] [address] [id number] [place] [address] Jan, [facility] [place] [facility] [address] [id number] [place] [address] Jan, [facility] [facility] [address] [id number] [place] [address] Jan, [facility] [place] [facility] [address] [id number] [place] [address] 56[address] 17 Jan, 2013 [facility] [address] [id number] [place] [address] 7346 17 Jan, 2013 [facility] [place] [facility] [address] [id number] [place] [address] 1213 16 Jan, 2013 [facility] [address] [id number] [place] [address] 8667 Jan, [facility] [address] [id number] [place] [address] 6[address] Jan, [facility] [address] [id number] [place] [address] 88[address] Jan, [facility] [place] [facility] [address] [id number] [place] [address] Jan, [facility] [place] [facility] [address] [id number] [place] [address]- 1744 05 Jan, 2013 [facility] [facility] [address] [id number] [place] [address]- 1696 05 Jan, 2013 [facility] [address] [id number] [place] [address]- 4936 05 Jan, 2013 [facility] [place] [facility] [address] [id number] [place] [address] 6[address] Jan, [facility] [place] [facility] [address] [id number] [place] [address]- 2861 Dec, [facility] [place] [facility] [address] [id number] [address] Dec, [facility] [place] [facility] [address] [facility] [id number] [place] [address]- 0371 Dec, [facility] [address] [id number] [address]- 8470 Dec, [facility] [address] [id number] [place] [address]- 4712 Dec, [facility] [place] [facility] [address] [id number] [address]- 6621 Dec, [facility] [address] [id number] [address]- 9374 Dec, [facility] [address] [id number] [place] [address]- 9571 Dec, [facility] [address] [id number] [address]- 0814 Dec, [facility] [address] [id number] [address]- 2211 Dec, [facility] [address] [id number] [address]- 3719 Nov, [facility] [facility] [address] [id number] [address]- 0090 31 Nov, 2012 [facility] [facility] [address] [id number] [address]- 1747 Nov, [facility] [address] [id number] [address]- 7149 Nov, [facility] [address] [id number] [address]- 3758 Nov, [facility] [facility] [address] [id number] [place] [address]- 0631 11 Nov, 2012 [facility] [facility] [address] [id number] [place] [address]- 2117 Nov, [facility] [facility] [address] [id number] [place] [address]- 6756 Nov, [facility] [place] [address] [id number] [place] [address]- 8493 10 Nov, 2012 [facility] [facility] [address] [id number] [place] [address] 2548 Nov, [facility] [address] [id number] [place] [address]- 2859 Oct, [facility] [address] [id number] [place] [address]- 6569 Oct, [facility] [place] [address] [id number] [place] [address]- 7459 Oct, [facility] [place] [address] [id number] [place] [address]- 1627 Oct, [facility] [address] [id number] [place] [address]- 3571 Oct, [facility] [place] [facility] [address] [id number] [place] [address]- 3105 Sep, [facility] [place] [facility] [address] [id number] [place] [address] 2541 Sep, [facility] [address] [id number] [place] [address]- 2548 Aug, [facility] [address] [id number] [place] [address]- 5852 Aug, [facility] [address] [id number] [place] [address]- 4336 Aug, [facility] [address] [id number] [place] [address]- 8680 Aug, [facility] [address] [id number] [place] [address]- 0763 Aug, [facility] [address] [id number] [place] [address]- 1806 Aug, [facility] [address] [id number] [place] [address]- 6382 Aug, [facility] [address] [id number] [place] [address]- 8614 Jul, [facility] [address] [id number] [place] [address]- 3513 Jul, [facility] [address] [id number] [place] [address]- 6763 June, [facility] [address] [id number] [place] [address]- 7375 June, [facility] [address] [id number] [place] [address]- 7244 June, [facility] [address] [id number] [place] [address]- 4056 June, [facility] [address] [id number] [place] [address]- 3869 June, [facility] [address] [id number] [place] [address]- 5737 June, [facility] [address] [id number] [place] [address]- 5042 June, [facility] [address] [id number] [place] [address]- 5813 June, [facility] [address] [id number] [place] [address]- 9046 June, [facility] [address] [id number] [place] [address]- 2546 June, [facility] [address] [id number] [address]- 7409 June, [facility] [address] [id number] [place] [address]- 7409 May, [facility] [address] [id number] [place] [address]- 2398 May, [facility] [address] [id number] [place] [address]- 7306 May, [facility] [address] [id number] [place] [address]- 6871 May, [facility] [address] [id number] [place] [address]- 0699 Apr, [facility] [address] [id number] [place] [address]- 4725 Apr, [facility] [address] [id number] [place] [address]- 3782 Apr, [facility] [address] [id number] [place] [address]- 3183 Mar, [facility] [address] [id number] [place] [address]- 5904 Mar, [facility] [address] [id number] [place] [address]- 6954 Feb, [facility] [address] [id number] [place] [address]- 7330 Feb, [facility] [address] [id number] [place] [address]- 7644 Feb, [facility] [address] [id number] [place] [address]- 3225 Feb, [facility] [address] [id number] [place] [address]- 4290 16 Feb, 2012 [facility] [address] [id number] [place] [address]- 5245 14 Feb, 2012 [facility] [address] [id number] [place] [address]- 0542 08 Feb, 2012 [facility] [address] [id number] [place] [address]- 8546 Jan, [facility] [address] [id number] [place] [address]- 2176 Jan, [facility] [address] [id number] [place] [address]- 0586 Jan, [facility] [address] [id number] [place] [address]- 9858 Jan, [facility] [address] [id number] [place] [address]- 8656 Jan, [facility] [address] [id number] [place] [address]- 4979 Jan, [facility] [address] [id number] [place] [address]- 0672 Jan, [facility] [address] [id number] [place] [address]- 7431 Jan, [facility] [address] [id number] [place] [address]- 7564 Jan, [facility] [address] [id number] [place] [address]- 8146 Jan, [facility] [address] [id number] [place] [address]- 6176 Jan, [facility] [address] [id number] [place] [address]- 4842 Dec, [facility] [address] [id number] [place] [address]- 9536 Dec, [facility] [address] [id number] [place] [address]- 2546 Dec, [facility] [address] [id number] [place] [address]- 6103 Dec, [facility] [address] [id number] [place] [address]- 8218 Nov, [facility] [address] [id number] [place] [address]- 1035 22 Nov, 2011 [facility] [address] [id number] [place] [address]- 7899 08 Nov, 2011 [facility] [address] [id number] [place] [address]- 2762 27 Oct, 2011 [facility] [address] [id number] [place] [address]- 9439 24 Oct, 2011 [facility] [address] [id number] [place] [address]- 9185 21 Oct, 2011 [facility] [address] [id number] [place] [address]- 0681 10 Oct, 2011 [facility] [address] [id number] [place] [address]- 7849 07 Oct, 2011 [facility] [address] [id number] [place] [address]- 7333 04 Oct, 2011 [facility] [address] [id number] [place] [address]- 5006 04 Oct, 2011 [facility] [address] [id number] [address]- 9727 29 Sep, 2011 [facility] [address] [id number] [address]- 2304 Sep, [facility] [address] [id number] [place] [address]- 9632 Sep, [facility] [place] [address] [id number] [place] [address]- 3841 13 Sep, 2011 [facility] [address] [id number] [place] [address]- 4637 07 Sep, 2011 [facility] [address] [id number] [place] [address]- 4956 30 Aug, 2011 [facility] [address] [id number] [place] [address]- 1186 26 Aug, 2011 [facility] [address] [id number] [place] [address] 2546 17 Aug, 2011 [facility] [place] [address] [id number] [place] [address] 2546 16 Aug, 2011 [facility] [address] [id number] [place] [address] 2546 13 Aug, 2011 [facility] [address] [id number] [place] [address]- 0632 Aug, [facility] [address] [id number] [place] [address]- 4586 03 Aug, 2011 [facility] [address] [id number] [place] [address]- 7809 28 Jul, 2011 [facility] [address] [id number] [place] [address]- 8596 26 Jul, 2011 [facility] [address] [id number] [place] [address]- 6313 22 Jul, 2011 [facility] [address] [id number] [place] [address]- 9883 Jul, [facility] [address] [id number] [place] [address]- 2807 12 Jul, 2011 [facility] [address] [id number] [place] [address]- 2541 Jul, [facility] [address] [id number] [place] [address]- 6315 07 Jul, 2011 [facility] [address] [id number] [place] [address]- 4136 06 Jul, 2011 [facility] [address] [id number] [place] [address]- 6824 05 Jul, 2011 [facility] [address] [id number] [place] [address]- 8612 June, [facility] [address] [id number] [place] [address]- 4823 June, [facility] [address] [id number] [place] [address]- 5061 June, [facility] [address] [id number] [place] [address]- 3829 June, [facility] [address] [id number] [place] [address]- 0330 June, [facility] [address] [id number] [place] [address]- 2389 June, [facility] [address] [id number] [place] [address]- 8699 June, [facility] [address] [id number] [place] [address]- 2252 June, [facility] [address] [id number] [place] [address]- 7117 May, [facility] [address] [id number] [place] [address]- 1989 May, [facility] [address] [id number] [place] [address]- 9511 May, [facility] [address] [id number] [place] [address]- 9398 19 May, 2011 [facility] [address] [id number] [place] [address]- 9771 16 May, 2011 [facility] [facility] [address] [id number] [place] [address]- 1695 May, [facility] [address] [id number] [place] [address]- 4729 May, [facility] [place] [facility] [address] [id number] [place] [address]- 8316 Apr, [facility] [address] [id number] [place] [address]- 7033 Apr, [facility] [place] [facility] [address] [id number] [place] [address]- 3866 Apr, [facility] [place] [facility] [address] [facility] [id number] [place] [address]- 9996 Apr, [facility] [place] [facility] [address] [id number] [place] [address]- 2716 Apr, [facility] [place] [facility] [address] [id number] [place] [address]- 9990 Apr, [facility] [place] [facility] [address] [facility] [id number] [place] [address]- 0338 Apr, [facility] [place] [facility] [address] [facility] [id number] [place] [address]- 0540 Mar, [facility] [place] [facility] [address] [id number] [place] [address]- 6971 Mar, [facility] [place] [facility] [address] [id number] [place] [address]- 2895 14 Mar, 2011 [facility] [place] [facility] [address] [facility] [id number] [place] [address]- 5816 13 Mar, 2011 [facility] [place] [facility] [address] [facility] [id number] [place] [address]- 2436 Mar, [facility] [place] [facility] [address] [id number] [address]- 7526 Mar, [facility] [place] [facility] [address] [id number] [place] [address]- 1355 Mar, [facility] [place] [facility] [address] [facility] [id number] [place] [address]- 7496 Feb, [facility] [place] [facility] [address] [facility] [id number] [place] [address]- 3203 Feb, [facility] [place] [facility] [address] [id number] [place] [address]- 3810 Feb, [facility] [address] [id number] [place] [address]- 5823 Feb, [facility] [address] [id number] [place] [address]- 7660 Feb, [facility] [address] [id number] [place] [address]- 7926 Feb, [facility] [address] [id number] [place] [address]- 1297 Feb, [facility] [address] [id number] [place] [address]- 6103 Feb, [facility] [address] [id number] [place] [address]- 1742 Feb, [facility] [address] [id number] [place] [address]- 8110 Feb, [facility] [address] [id number] [place] [address]- 7220 Jan, [facility] [address] [id number] [place] [address]- 6162 Jan, [facility] [address] [id number] [place] [address]- 0746 Jan, [facility] [address] [id number] [place] [address]- 2604 Jan, [facility] [address] [id number] [place] [address]- 3077 Jan, [facility] [place] [facility] [address] [id number] [place] [address]- 7646 Jan, [facility] [place] [facility] [address] [id number] [place] [address]- 1808 15 Jan, 2011 [facility] [place] [facility] [address] [id number] [place] [address]- 0066 15 Jan, 2011 [facility] [place] [facility] [address] [id number] [place] [address]- 4569 08 Jan, 2011 [facility] [place] [facility] [address] [id number] [place] 4994 Jan, [facility] [place] [facility] [address] [facility] [id number] [place] 4027 Jan, [facility] [place] [facility] [address] [id number] [place] [address]- 4439 Dec, [facility] [place] [facility] [address] [id number] [place] [address]- 5506 Dec, [facility] [place] [facility] [address] [id number] [place] [address]- 1997 Dec, [facility] [place] [facility] [address] [id number] [place] [address]- 9848 16 Dec, 2010 [facility] [place] [facility] [address] [id number] [address]- 6025 14 Dec, 2010 [facility] [place] [facility] [address] [id number] [address]- 6881 Dec, [facility] [place] [facility] [address] [id number] [address]- 6331 Dec, [facility] [place] [facility] [address] [id number] [place] [address]- 0514 Dec, [facility] [place] [facility] [address] [id number] [address]- 8867 Dec, [facility] [place] [facility] [address] [id number] [place] [address] Nov, [facility] [place] [facility] [address] [id number] [address] Nov, [facility] [place] [facility] [address] [id number] [address] Nov, [facility] [place] [facility] [address] [id number] [place] [address] 24 Nov, 2010 [facility] [address] [id number] [place] [address] 24 Nov, 2010 [facility] [address] [id number] [place] [address] 13 Nov, 2010 [facility] [address] [id number] [place] [address] 11 Aug, 2010 [facility] [address] [id number] [place] [address] 14 Feb, 2010 [facility] [address] [id number] [place] [address] 14 Jan, 2010 [facility] [address] [id number] [place] [address] 06 Jan, 2010 [facility] [address] [id number] [place] [address] Jan, [facility] [address] [id number] [place] [address] Jan, [facility] [address] [id number] [place] [address] Jan, [facility] [address] [id number] [place] [address] 24 Dec, 2009 [facility] [place] [facility] [address] [id number] [place] [address] Dec, [facility] [address] [id number] [place] [address] Dec, [facility] [place] [facility] [address] [id number] [place] [address] Dec, [facility] [place] [facility] [address] [id number] [place] [address] Nov, [facility] [address] [id number] [place] [address] Nov, [facility] [address] [facility] [id number] [place] [address] Nov, IMMUNIZATIONS No Known Immunizations SOCIAL HISTORY Never Assessed REASON FOR VISIT new orders PLAN OF CARE Activity Details Pending Test Mammogram, Bilateral Screening VITAL SIGNS MEDICATIONS Unknown Medications RESULTS No [...]
--- OUTSIDE RECORDS SUMMARY | 2018-01-13 20:37 | XMS REPORT ---
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 Active 068257290 Problem Hypertension I10 Active 20143407 Problem Arthritis M19.90 Active 0234196 Problem 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 Active 23148839 Problem Anxiety F41.9 Active 51109787 Problem Unspecified episodic mood disorder F39 Active 44612382 Problem Left hip pain M25.552 Active 33115145 ALLERGIES No Information ENCOUNTERS Encounter Location Date Diagnosis [facility] [address] [facility] [id number] [address] Dec, [facility] [id number] [address] 24 Nov, 2017 Chronic hepatitis C without hepatic coma B18.2 and Screening for malignant neoplasm of breast Z12.31 [facility] [id number] [place] [address] 04976- 1175 Nov, [facility] [id number] [place] [address] 73973- 4558 Nov, Chronic hepatitis C without hepatic coma B18.2 [facility] [id number] [place] [address] 28169- 5853 Nov, [facility] [address] [address]- 8409 Nov, Arthritis M19.90 and Unspecified episodic mood disorder F39 [facility] [id number] [place] [address] 05364- 8946 Oct, [facility] [id number] [place] [address] 38650- 3642 Oct, Chronic hepatitis C without hepatic coma B18.2 and Encounter for immunization Z23 [facility] [id number] [place] [address] 41117- 6926 Oct, [facility] [id number] [place] [address] 20859- 1690 Oct, Arthritis M19.90 and Unspecified episodic mood disorder F39 [facility] [id number] [place] [address] 53146- 1160 Sep, Chronic hepatitis C without hepatic coma B18.2 [facility] [id number] [place] [address] 71146- 8897 Sep, Gastroesophageal reflux disease, esophagitis presence not specified K21.9 and Other chronic pain G89.29 [facility] [id number] [place] [address] 04531- 2917 Sep, [facility] [id number] [place] [address] 06040- 9009 Sep, [facility] [id number] [place] [address] 26529- 1187 Sep, Chronic hepatitis C without hepatic coma B18.2 [facility] [address] [address] 35[address] Sep, 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 [facility] [address] [place] [address] 87614- 9773 Sep, Arthritis M19.90 [facility] [id number] [place] [address] 91777- 8354 Sep, [facility] [id number] [place] [address] 43607- 5101 Sep, Unspecified episodic mood disorder F39 [facility] [id number] [place] [address] 85969- 7477 Aug, [facility] [id number] [place] [address] [id number] Aug, [facility] [id number] [place] [address] 63468- 0142 Aug, Arthritis M19.90 [facility] [id number] [place] [address] 34978- 0354 Aug, [facility] [id number] [place] [address] 95328- 7813 Aug, Obesity (BMI 30.0-34.9) E66.9 ; Unspecified episodic mood disorder F39 and Hypertension I10 [facility] [id number] [place] [address] 70237- 1710 Aug, Unspecified episodic mood disorder F39 [facility] [address] [address] 8820 Aug, [facility] [id number] [place] [address] 02859- 0586 Jul, Unspecified episodic mood disorder F39 [facility] [address] [address] 0458 Jul, [facility] [id number] [address] 3[address] 13 Jul, 2017 Arthritis M19.90 [facility] [id number] [place] [address] 29727- 2154 Jul, Left hip pain M25.552 ; Hypertension I10 ; Other obesity due to excess calories E66.09 and Body mass index (BMI) of 34.0-34.9 in adult Z68.34 [facility] [id number] [address] 3998 Jul, Unspecified episodic mood disorder F39 [facility] [id number] [address]- 6296 June, Gastroesophageal reflux disease, esophagitis presence not specified K21.9 [facility] [id number] [address] 2360 June, [facility] [id number] [address] 7756 June, [facility] [address] [address] 0940 June, Arthritis M19.90 [facility] [address] [address]- 3583 June, [facility] [address] [address] 0905 June, [facility] [address] [address]- 6451 June, Unspecified episodic mood disorder F39 [facility] [address] [address]- 8198 May, Unspecified episodic mood disorder F39 [facility] [address] [address]- 3433 May, [facility] [address] [address]- 6748 May, Arthritis M19.90 [facility] [address] [address] May, Dysuria R30.0 ; Abscess L02.91 and Acute cystitis without hematuria N30.00 [facility] [id number] [place] [address] 23459- 0183 May, 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 ; Unspecified episodic mood disorder F39 ; Combined drug dependence excluding opioids, 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 ; Anxiety F41.9 and Other psychoactive substance dependence, 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 [facility] [id number] [place] [address] 85252- 3624 May, [facility] [id number] [place] [address] 19879- 0435 May, 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 ; Unspecified episodic mood disorder F39 ; Combined drug dependence excluding opioids, 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 ; Other psychoactive substance dependence, 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 and Anxiety F41.9 [facility] [id number] [place] [address] 50653- 4066 May, Other chronic pain G89.29 ; Left hip pain M25.552 ; Hypertension I10 ; 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, 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 and Unspecified episodic mood disorder F39 [facility] [id number] [place] [address] 50921- 8389 Apr, [facility] [id number] [place] [address] 31510 -2810 Apr, Neck pain M54.2 ; Left hip pain M25.552 and Fall, initial encounter W19.XXXA [facility] [id number] [place] [address] 79340- 2958 Apr, Unspecified episodic mood disorder F39 ; Combined drug dependence excluding opioids, 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 ; Anxiety F41.9 ; Other psychoactive substance dependence, 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 and 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 [facility] [id number] [address]- 7421 Apr, [facility] [id number] [place] [address] 58838- 2467 Apr, Arthritis M19.90 and Unspecified episodic mood disorder F39 [facility] [id number] [place] [address] 52560- 7619 Apr, Unspecified episodic mood disorder F39 [facility] [id number] [place] [address] 82660- 3907 Apr, [facility] [id number] [place] [address] 25689- 1820 Apr, [facility] [id number] [place] [address] 07804- 6332 Apr, Unspecified episodic mood disorder F39 ; Combined drug dependence excluding opioids, 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 ; Anxiety F41.9 ; Other psychoactive substance dependence, 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 and 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 [facility] [id number] [place] [address] 84911- 4210 Mar, Unspecified episodic mood disorder F39 [facility] [id number] [place] [address] 91676- 9051 Mar, Gastroesophageal reflux disease, esophagitis presence not specified K21.9 [facility] [id number] [place] [address] 15739- 3681 Mar, Arthritis M19.90 and Unspecified episodic mood disorder F39 [facility] [address] [address]- 3700 Feb, [facility] [id number] [place] [address] 28686- 7285 Feb, [facility] [id number] [place] [address] 52472- 3888 Feb, [facility] [id number] [place] [address] 95819- 4522 Feb, Arthritis M19.90 [facility] [address] [address]- 6163 Feb, Non-pressure chronic ulcer of right calf, 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 ; Unspecified episodic mood disorder F39 and Left hip pain M25.552 [facility] [id number] [place] [address] 70541- 9765 Feb, [facility] [id number] [place] [address] 76801- 1786 Feb, [facility] [id number] [place] [address] 16874- 2874 Jan, Arthritis M19.90 [facility] [id number] [place] [address] 21006- 5219 Jan, Left hip pain M25.552 and Non-pressure chronic ulcer of right calf, 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 [facility] [id number] [place] [address] 10108- 8250 Jan, Chronic hepatitis C without hepatic coma B18.2 [facility] [id number] [place] [address] 29385- 0812 Jan, Encounter for immunization Z23 ; Venous insufficiency ( chronic) (peripheral) I87.2 ; Non-pressure chronic ulcer of unspecified calf limited to breakdown of skin L97.201 and Gastroesophageal reflux disease, esophagitis presence not specified K21.9 [facility] [id number] [address]- 5179 Jan, [facility] [id number] [place] [address] 57323- 0772 Jan, Chronic hepatitis C without hepatic coma B18.2 and Encounter for immunization Z23 [facility] [id number] [place] [address] 65973- 2241 Jan, Arthritis M19.90 [facility] [id number] [place] [address] 02347- 6691 Jan, [facility] [id number] [place] [address] 44123- 9093 Dec, [facility] [id number] [place] [address] 13043- 4907 Dec, Unspecified episodic mood disorder F39 [facility] [address] 03687- 1693 Dec, Arthritis M19.90 [facility] [id number] [place] [address] 81465- 5889 Dec, Arthritis M19.90 [facility] [id number] [place] [address] 56775- 4504 Nov, [facility] [id number] [place] [address] 88436- 1987 Nov, [facility] [id number] [place] [address] 23892- 8897 Nov, Other psychoactive substance dependence, 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 ; 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, 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 and Chronic hepatitis C without hepatic coma B18.2 [facility] [id number] [place] [address] 28603- 8035 Nov, Arthritis M19.90 [facility] [id number] [place] [address] 88821 -2167 Oct, Partial thickness burn of abdomen, initial encounter T21.22XA [facility] [id number] [place] [address] 72441- 7496 Oct, [facility] [id number] [place] [address] 35970- 1442 Sep, Arthritis M19.90 [facility] [id number] [place] [address] 74434- 2139 Sep, [facility] [id number] [place] [address] 19692- 8733 Sep, [facility] [id number] [address]- 6113 Sep, Unspecified episodic mood disorder F39 ; Chronic hepatitis C without hepatic coma B18.2 and Left hip pain M25.552 [facility] [id number] [address]- 5370 Sep, Arthritis M19.90 and Left hip pain M25.552 [facility] [id number] [place] [address] 37745- 1838 Aug, [facility] [id number] [place] [address] 71605- 4897 Aug, [facility] [id number] [address]- 9318 Aug, Chronic hepatitis C without hepatic coma B18.2 [facility] [address] [place] [address] 29007- 8646 Aug, [facility] [id number] [address]- 3457 Aug, Chronic hepatitis C without hepatic coma B18.2 [facility] [id number] [address]- 8883 Aug, 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, 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 [facility] [id number] [address]- 6518 Aug, [facility] [id number] [address]- 2471 Aug, Chronic hepatitis C without hepatic coma B18.2 and Hypertension I10 [facility] [id number] [address]- 1229 Jul, [facility] [id number] [address]- 8123 June, [facility] [id number] [place] [address] 19962- 5560 Apr, Fibromyalgia M79.7 ; Left hip pain M25.552 and Decubitus ulcer of sacral region, stage 1 L89.151 [facility] [id number] [place] [address] 30003- 3727 Apr, [facility] [id number] [place] [address] 98216- 2647 Apr, [facility] [id number] [place] [address] 10559- 7766 Feb, [facility] [id number] [place] [address] 43958- 7392 Dec, Anxiety F41.9 ; Combined drug dependence excluding opioids, 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 and Unspecified episodic mood disorder F39 [facility] [id number] [place] [address] 37546- 7730 Dec, [facility] [id number] [place] [address] 41902- 3566 Nov, [facility] [id number] [place] [address] 93219- 0552 Nov, [facility] [id number] [place] [address] 66087- 4991 10 Nov, 2015 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 and Anxiety F41.9 [facility] [id number] [place] [address] 43405- 8890 Oct, [facility] [id number] [place] [address] 35953 -1354 14 Oct, 2015 Open wound of left thigh, initial encounter S71.102A [facility] [id number] [place] [address] 62847- 6408 12 Oct, 2015 [facility] [id number] [place] [address] 70675- 1706 Sep, Unspecified episodic mood disorder F39 ; Other disorder of impulse control 312.39 ; Combined drug dependence excluding opioids, 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 and Anxiety F41.9 [facility] [id number] [place] [address] 25741- 4213 Sep, Other disorder of impulse control 312.39 ; Combined drug dependence excluding opioids, 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 ; Anxiety F41.9 and Unspecified episodic mood disorder F39 [facility] [id number] [place] [address] 95591- 2282 Sep, Other chronic pain G89.29 [facility] [id number] [place] [address] 30961- 9987 Sep, [facility] [id number] [place] [address] 97534- 1127 Sep, [facility] [id number] [place] [address] 85383- 7351 Aug, [facility] [id number] [place] [address] 04682- 1695 Aug, [facility] [id number] [place] [address] 64541- 4980 Aug, [facility] [id number] [place] [address] 30581- 8746 Jul, [facility] [id number] [place] [address] 97383- 7914 Jul, [facility] [id number] [place] [address] 08459- 5830 Jul, [facility] [id number] [place] [address] 17921- 7926 Jul, Arthritis M19.90 ; Chronic hepatitis C without hepatic coma B18.2 and Left hip pain M25.552 [facility] [address] [place] [address] 72357- 9820 13 Jul, 2015 Left knee pain M25.562 [facility] [id number] [place] [address] 30718- 2854 Jul, Combined drug dependence excluding opioids, 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 ; Anxiety F41.9 ; Other disorder of impulse control 312.39 and Unspecified episodic mood disorder F39 [facility] [address] [address]- 5304 Jul, Left knee pain M25.562 [facility] [id number] [place] [address] 30372- 2297 Jul, Left knee pain M25.562 and Left hip pain M25.552 [facility] [address] [place] [address] 27114- 2325 Jul, [facility] [id number] [place] [address] 97820- 5543 June, [facility] [id number] [place] [address] 04323- 0743 June, Combinations of drug dependence excluding opioid type drug, 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 ; Other disorder of impulse control 312.39 ; Unspecified episodic mood disorder F39 and Anxiety F41.9 [facility] [address] [place] [address] 61327- 0167 June, Other fatigue R53.83 ; Headache R51 and Left knee pain M25.562 [facility] [address] [address]- 3437 June, Unspecified episodic mood disorder F39 ; Combinations of drug dependence excluding opioid type drug, 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 ; Other disorder of impulse control 312.39 and Anxiety F41.9 [facility] [address] [address]- 8083 June, Anxiety F41.9 [facility] [id number] [place] [address] 58749- 0099 June, Pain in left knee M25.562 [facility] [id number] [place] [address] 96699- 5282 June, Anxiety F41.9 and Combinations of drug dependence excluding opioid type drug, 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 [facility] [id number] [place] [address] 96132- 0257 June, Unspecified episodic mood disorder 296.90 ; Combinations of drug dependence excluding opioid type drug, 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 and Other disorder of impulse control 312.39 [facility] [id number] [place] [address] 35346- 3656 June, Anxiety F41.9 and Unspecified episodic mood disorder 296.90 [facility] [id number] [place] [address] 29929- 2944 May, Arthritis M19.90 [facility] [id number] [place] [address] 72950- 4571 May, Arthritis M19.90 [facility] [id number] [place] [address] 92666- 6168 May, Anxiety F41.9 ; Combinations of drug dependence excluding opioid type drug, 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 and Other disorder of impulse control 312.39 [facility] [id number] [place] [address] 57890- 6320 May, Left knee pain M25.562 [facility] [id number] [place] [address] 93560- 4314 May, Arthritis M19.90 [facility] [id number] [place] [address] 71726- 2723 May, [facility] [id number] [place] [address] 98420- 8612 May, Anxiety F41.9 ; Unspecified episodic mood disorder 296.90 ; Combinations of drug dependence excluding opioid type drug, 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 and Other disorder of impulse control 312.39 [facility] [id number] [place] [address] 86135- 9134 May, Left knee pain M25.562 [facility] [id number] [address] May, Left knee pain M25.562 ; Combinations of drug dependence excluding opioid type drug, 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 ; Other disorder of impulse control 312.39 ; Fibromyalgia M79.7 ; Hypertension I10 ; Unspecified episodic mood disorder 296.90 and Left hip pain M25.[id number] [place] [address] 20672- 2236 May, Unspecified episodic mood disorder 296.90 ; Other disorder of impulse control 312.39 ; Combinations of drug dependence excluding opioid type drug, 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 and Anxiety F41.9 [id number] [place] [address]85- [address] May, Left knee pain M25.562 ; Combinations of drug dependence excluding opioid type drug, 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 ; Other disorder of impulse control 312.39 ; Fibromyalgia M79.7 ; Hypertension I10 ; Unspecified episodic mood disorder 296.90 and Left hip pain M25.552 [id number] [place] [address] 46135- 118[address] May, Anxiety F41.9 ; Unspecified episodic mood disorder 296.90 ; Other disorder of impulse control 312.39 and Combinations of drug dependence excluding opioid type drug, 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 [address] [address] [address] Apr, 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 and 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, implants and grafts, initial encounter T84.82XA [address] [id number] [place] [address] 73719- [address]678 Apr, Anxiety F41.9 ; Unspecified episodic mood disorder 296.90 ; Combinations of drug dependence excluding opioid type drug, 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 and Other disorder of impulse control 312.39 [address] [address] [address] Apr, Arthritis M19.90 [id number] [address] Apr, Anxiety F41.9 ; Unspecified episodic mood disorder 296.90 ; Combinations of drug dependence excluding opioid type drug, 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 and Other disorder of impulse control 312.39 [facility] [address] [id number] [address] 17 Apr, 2015 Arthritis M19.90 [facility] [id number] [place] [address] 05362- 3204 15 Apr, 2015 [facility] [id number] [place] [address] 86835- 8700 15 Apr, 2015 [facility] [id number] [place] [address] 29696- 8787 14 Apr, 2015 Unspecified episodic mood disorder 296.90 ; Combinations of drug dependence excluding opioid type drug, 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 ; Other disorder of impulse control 312.39 and Anxiety F41.9 [facility] [id number] [place] [address] 76602 -0135 Apr, Left knee pain M25.562 [facility] [id number] [place] [address] 76491- 1091 Apr, [facility] [id number] [place] [address] 21244- 7225 Mar, Unspecified episodic mood disorder 296.90 ; Anxiety F41.9 ; Other disorder of impulse control 312.39 and Combinations of drug dependence excluding opioid type drug, 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 [facility] [id number] [place] [address] 56689- 8361 Mar, Hyperpigmentation L81.9 [facility] [id number] [place] [address] 43738- 0980 Mar, Arthritis M19.90 and Anxiety F41.9 [facility] [id number] [place] [address] 70381- 5131 Mar, Unspecified episodic mood disorder F39 ; Combined drug dependence excluding opioids, 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 ; 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 and Anxiety F41.9 [facility] [id number] [place] [address] 77504- 3942 12 Mar, 2015 Well woman exam Z01.419 ; Other fatigue R53.83 ; Hot flashes N95.1 ; Depression, unspecified depression type F32.9 and Body mass index (BMI) of 23.0-23.9 in adult Z68.23 [facility] [id number] [place] [address] 33764- 2675 11 Mar, 2015 Unspecified episodic mood disorder 296.90 ; Other disorder of impulse control 312.39 and Anxiety F41.9 [facility] [id number] [place] [address] 07771- 0652 11 Mar, 2015 Well woman exam Z01.419 [...] of breast Z12.39 and Limited mobility Z74.09 [facility] [id number] [place] [address] 22968- 7377 Mar, [facility] [id number] [place] [address] 13363- 0787 10 Mar, 2015 [facility] [id number] [place] [address] 28335- 1468 08 Mar, 2015 [facility] [address] 80618- 7374 Mar, Other specified complication of internal orthopedic prosthetic devices, implants and grafts, initial encounter T84.89XA ; Fibromyalgia M79.7 ; Hypertension I10 ; Anemia D64.9 ; Insomnia G47.00 ; Anxiety F41.9 ; Arthritis M19.90 and Migraine G43.909 [facility] [address] 98676- 3410 Mar, [facility] [address] 35155- 9363 Feb, [facility] [address] 78740- 8478 Feb, Arthritis M19.90 and Anxiety F41.9 [facility] [address] 46358- 9690 Feb, [facility] [address] 00393- 7271 Feb, [facility] [address] 13638- 8057 Feb, [facility] [address] 27279- 6048 Feb, [facility] [id number] [place] [address] 70932- 9432 Feb, Anxiety F41.9 [facility] [address] 08961- 2673 Feb, [facility] [id number] [place] [address] 74405- 6448 Feb, [facility] [address] 31522- 0318 Feb, 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 and Fibromyalgia M79.7 [facility] [id number] [place] [address] 35848- 5476 Feb, [facility] [address] [address] 4053 Jan, [facility] [id number] [address] 9628 Jan, [facility] [address] [address]- 6471 Jan, [facility] [address] [address]- 9096 Jan, [facility] [address] [address]- 9314 Jan, [facility] [id number] [place] [address] 15065- 5092 Jan, [facility] [id number] [place] [address] 04486- 8125 Jan, [facility] [id number] [place] [address] 62386- 1040 Jan, [facility] [address] [address]- 2029 Dec, [facility] [id number] [place] [address] 96553- 7526 Dec, Left knee pain M25.562 [facility] [id number] [address]- 6265 Dec, Left knee pain M25.562 [facility] [address] [address]- 5887 Dec, Fibromyalgia M79.7 ; Hypertension I10 and Arthritis M19.90 [facility] [address] [address]- 1152 Dec, [facility] [id number] [address]- 8280 Dec, [facility] [id number] [address]- 6308 Dec, [facility] [address] [id number] [address]- 6511 Dec, [facility] [place] [facility] [address] [facility] [id number] [address]- 7298 Nov, [facility] [place] [facility] [address] [facility] [id number] [place] [address]- 6235 Nov, [facility] [place] [facility] [address] [facility] [id number] [place] [address] 42138- 5976 Nov, [facility] [place] [facility] [address] [id number] [place] [address] 91009- 6376 Nov, Hypertension I10 [facility] [place] [facility] [address] [facility] [id number] [place] [address], [place] [address]- 3939 23 Oct, 2014 [facility] [place] [facility] [address] [facility] [id number] [address]- 7858 17 Oct, 2014 [facility] [place] [facility] [address] [facility] [id number] [place] [address] 02444- 8286 Oct, 2014 [facility] [place] [facility] [address] [facility] [id number] [address]- 2893 Oct, [facility] [place] [facility] [id number] [address]- 4334 Oct, [facility] [place] [facility] [address] [facility] [id number] [place] [address]- 3946 Sep, [facility] [place] [facility] [address] [facility] [id number] [place] [address]- 2506 Sep, [facility] [place] [facility] [address] [facility] [id number] [place] [address]- 3383 Sep, Hip pain associated with recalled total hip arthroplasty hardware 996.77 [facility] [place] [facility] [address] [id number] [address]- 4122 Sep, [facility] [place] [facility] [address] [facility] [id number] [place] [address]- 7819 Sep, [facility] [place] [facility] [address] [id number] [place] [address]- 2546 Sep, [facility] [place] [facility] [address] [id number] [place] [address]- 9250 Aug, [facility] [place] [facility] [address] [id number] [place] [address]- 2546 Jul, [facility] [place] [facility] [address] [id number] [place] [address]- 2876 June, [facility] [place] [facility] [address] [id number] [place] [address]- 4726 June, [facility] [place] [facility] [address] [id number] [place] [address]- 7446 June, [facility] [place] [facility] [address] [id number] [place] [address]- 1656 June, [facility] [place] [facility] [address] [id number] [place] [address]- 5674 June, [facility] [place] [facility] [address] [id number] [place] [address]- 4549 June, [facility] [place] [facility] [address] [id number] [place] [address]- 2870 May, [facility] [place] [facility] [address] [id number] [place] [address]- 2357 May, [facility] [place] [facility] [address] [id number] [place] [address]- 1370 May, [facility] [place] [facility] [address] [id number] [place] [address]- 2540 Apr, [facility] [place] [facility] [address] [id number] [place] [address]- 5086 Apr, [facility] [place] [facility] [address] [id number] [place] [address]- 2546 Apr, [facility] [place] [facility] [address] [id number] [place] [address]- 4344 Apr, [facility] [place] [facility] [address] [id number] [place] [address]- 4265 Apr, [facility] [place] [facility] [address] [id number] [place] [address]- 7175 Apr, [facility] [place] [facility] [address] [id number] [place] [address]- 6381 Apr, [facility] [place] [facility] [address] [id number] [place] [address]- 1654 Apr, [facility] [place] [facility] [address] [id number] [place] [address]- 0838 Apr, [facility] [place] [facility] [address] [id number] [place] [address]- 6323 Apr, [facility] [place] [facility] [address] [facility] [id number] [place] [address]- 6989 Apr, [facility] [place] [facility] [address] [id number] [place] [address]- 7531 Mar, [facility] [place] [facility] [address] [id number] [place] [address]- 7400 Mar, [facility] [place] [facility] [address] [facility] [id number] [place] [address]- 6032 16 Mar, 2014 [facility] [place] [facility] [address] [id number] [place] [address]- 0274 16 Mar, 2014 [facility] [place] [facility] [address] [id number] [place] [address]- 5361 Mar, [facility] [place] [facility] [address] [id number] [place] [address]- 3160 Mar, [facility] [place] [facility] [address] [facility] [id number] [place] [address]- 0654 15 Feb, 2014 [facility] [place] [facility] [address] [id number] [place] [address]- 1837 Feb, [facility] [place] [facility] [address] [id number] [place] [address]- 7675 Feb, [facility] [place] [facility] [address] [id number] [place] [address]- 8728 Feb, [facility] [place] [facility] [address] [id number] [place] [address]- 4064 Jan, [facility] [place] [facility] [address] [id number] [place] [address]- 9427 Jan, [facility] [place] [facility] [address] [id number] [place] [address]- 7780 Jan, [facility] [place] [facility] [address] [id number] [place] [address]- 1033 Jan, [facility] [place] [facility] [address] [id number] [place] [address]- 0361 Dec, [facility] [place] [facility] [address] [id number] [place] [address]- 7732 Dec, [facility] [place] [facility] [address] [id number] [place] [address]- 1309 Dec, [facility] [place] [facility] [address] [id number] [place] [address]- 6503 Dec, [facility] [place] [facility] [address] [id number] [place] [address]- 6253 Dec, [facility] [place] [facility] [address] [id number] [place] [address]- 0314 Dec, [facility] [place] [facility] [address] [id number] [place] [address]- 3027 Dec, [facility] [place] [facility] [address] [id number] [place] [address]- 0697 Dec, [facility] [place] [facility] [address] [id number] [place] [address]- 5319 Dec, [facility] [place] [facility] [address] [id number] [place] [address]- 9780 Dec, [facility] [place] [facility] [address] [id number] [place] [address]- 2941 07 Dec, 2013 [facility] [place] [facility] [address] [id number] [place] [address]- 4708 31 Nov, 2013 [facility] [place] [facility] [address] [id number] [place] [address]- 7714 28 Nov, 2013 [facility] [place] [facility] [address] [id number] [place] [address]- 1603 28 Nov, 2013 [facility] [place] [facility] [address] [id number] [place] [address]- 5235 17 Nov, 2013 [facility] [place] [facility] [address] [id number] [place] [address]- 6282 17 Nov, 2013 [facility] [place] [facility] [address] [id number] [place] [address]- 2788 15 Nov, 2013 [facility] [place] [facility] [address] [id number] [place] [address]- 3012 15 Nov, 2013 [facility] [place] [facility] [address] [id number] [place] [address]- 3688 15 Nov, 2013 [facility] [place] [facility] [address] [id number] [place] [address]- 7457 15 Nov, 2013 [facility] [place] [facility] [address] [id number] [place] [address]- 0813 14 Nov, 2013 [facility] [place] [facility] [address] [id number] [address]- 9358 14 Nov, 2013 [facility] [place] [facility] [address] [id number] [place] [address]- 8424 14 Nov, 2013 [facility] [place] [facility] [address] [id number] [place] [address]- 0162 14 Nov, 2013 [facility] [place] [facility] [address] [id number] [place] [address]- 2567 13 Nov, 2013 [facility] [place] [facility] [address] [id number] [place] [address]- 0685 13 Nov, 2013 [facility] [place] [facility] [address] [id number] [place] [address]- 1573 11 Nov, 2013 [facility] [place] [facility] [address] [id number] [place] [address]- 4085 11 Nov, 2013 [facility] [place] [facility] [address] [id number] [place] [address]- 4133 07 Nov, 2013 [facility] [place] [facility] [address] [id number] [place] [address]- 8215 07 Nov, 2013 [facility] [place] [facility] [address] [id number] [place] [address]- 7674 07 Nov, 2013 [facility] [place] [facility] [address] [id number] [place] [address]- 1483 07 Nov, 2013 [facility] [place] [facility] [address] [id number] [place] [address]- 0613 30 Sep, 2013 [facility] [place] [facility] [address] [id number] [place] [address]- 2916 30 Sep, 2013 [facility] [place] [facility] [address] [id number] [place] [address]- 4584 26 Sep, 2013 [facility] [place] [facility] [address] [facility] [id number] [place] [address]- 8609 26 Sep, 2013 [facility] [place] [facility] [address] [id number] [place] [address]- 9762 22 Sep, 2013 [facility] [place] [facility] [address] [id number] [place] [address]- 2543 22 Sep, 2013 [facility] [place] [facility] [address] [id number] [place] [address]- 0977 18 Sep, 2013 [facility] [place] [facility] [address] [id number] [place] [address]- 2544 18 Sep, 2013 [facility] [place] [facility] [address] [id number] [place] [address]- 2209 18 Sep, 2013 [facility] [place] [facility] [address] [id number] [place] [address]- 2175 18 Oct, 2013 [facility] [place] [facility] [address] [id number] [place] [address]- 1526 Oct, [facility] [place] [facility] [address] [id number] [place] [address]- 4079 Oct, [facility] [place] [facility] [address] [id number] [place] [address]- 3150 Oct, [facility] [place] [facility] [address] [id number] [place] [address]- 4690 Oct, [facility] [place] [facility] [address] [id number] [place] [address]- 8667 Sep, [facility] [place] [facility] [address] [id number] [place] [address]- 0167 Sep, [facility] [place] [facility] [address] [id number] [place] [address]- 9400 Sep, [facility] [place] [facility] [address] [id number] [place] [address]- 3290 Sep, [facility] [place] [facility] [address] [id number] [place] [address]- 1084 Sep, [facility] [place] [facility] [address] [id number] [place] [address]- 1641 Sep, [facility] [place] [facility] [address] [id number] [place] [address]- 2617 Sep, [facility] [place] [facility] [address] [id number] [place] [address]- 1923 Sep, [facility] [place] [facility] [address] [id number] [place] [address]- 8166 Sep, [facility] [place] [facility] [address] [id number] [place] [address]- 3686 Sep, [facility] [place] [facility] [address] [id number] [place] [address]- 0031 Sep, [facility] [place] [facility] [address] [id number] [place] [address]- 9707 Sep, [facility] [place] [facility] [address] [id number] [place] [address]- 3326 Sep, [facility] [place] [facility] [address] [id number] [place] [address]- 6713 Sep, [facility] [place] [facility] [address] [id number] [place] [address]- 8087 Sep, [facility] [place] [facility] [address] [id number] [place] [address]- 2969 Sep, [facility] [place] [facility] [address] [id number] [place] [address]- 6652 Sep, [facility] [place] [facility] [address] [id number] [place] [address]- 1314 Sep, [facility] [place] [facility] [address] [id number] [place] [address]- 2611 Aug, [facility] [place] [facility] [address] [id number] [place] [address]- 9888 Aug, [facility] [place] [facility] [address] [id number] [place] [address]- 7467 Aug, [facility] [place] [facility] [address] [id number] [place] [address]- 3434 Aug, [facility] [place] [facility] [address] [id number] [place] [address]- 4799 Aug, [facility] [place] [facility] [address] [id number] [place] [address]- 8354 Aug, [facility] [place] [facility] [address] [id number] [place] [address]- 0358 Jul, [facility] [place] [facility] [address] [id number] [place] [address]- 2428 Jul, [facility] [place] [facility] [address] [id number] [place] [address]- 0786 Jul, [facility] [address] [id number] [place] [address]- 5683 Jul, [facility] [address] [id number] [place] [address]- 8633 June, [facility] [address] [id number] [place] [address]- 7259 June, [facility] [address] [id number] [place] [address]- 9321 June, [facility] [address] [id number] [place] [address]- 9988 June, [facility] [address] [id number] [place] [address]- 8923 June, [facility] [address] [id number] [place] [address]- 8187 June, [facility] [address] [id number] [place] [address]- 1288 June, [facility] [address] [id number] [place] [address]- 7326 May, [facility] [address] [id number] [place] [address]- 6286 May, [facility] [place] [facility] [address] [id number] [place] [address]- 7486 May, [facility] [place] [facility] [address] [id number] [place] [address]- 0367 May, [facility] [place] [facility] [address] [id number] [place] [address] May, [facility] [place] [facility] [address] [id number] [place] [address] May, [facility] [place] [facility] [address] [id number] [place] [address] Apr, [facility] [place] [facility] [address] [id number] [place] [address] 31 Apr, 2013 [facility] [place] [facility] [address] [id number] [place] [address] 28 Apr, 2013 [facility] [place] [facility] [address] [id number] [place] [address] 28 Apr, 2013 [facility] [place] [facility] [address] [id number] [place] [address] 14 Apr, 2013 [facility] [place] [facility] [address] [id number] [place] [address] 14 Apr, 2013 [facility] [place] [facility] [address] [id number] [place] [address] Apr, [facility] [place] [facility] [address] [id number] [place] [address] Apr, [facility] [place] [facility] [address] [id number] [place] [address] 10 Apr, 2013 [facility] [place] [facility] [address] [id number] [place] [address] 10 Apr, 2013 [facility] [place] [facility] [address] [id number] [place] [address] 04 Apr, 2013 [facility] [place] [facility] [address] [id number] [place] [address] Apr, [facility] [place] [facility] [address] [id number] [place] [address] Apr, [facility] [place] [facility] [address] [id number] [place] [address] Apr, [facility] [place] [facility] [address] [id number] [place] [address] Mar, [facility] [place] [facility] [address] [id number] [place] [address] Mar, [facility] [place] [facility] [address] [id number] [place] [address] Mar, [facility] [address] [id number] [place] [address] Feb, [facility] [address] [id number] [place] [address] Feb, [facility] [address] [id number] [place] [address] Feb, [facility] [place] [facility] [address] [id number] [place] [address]- [address]267 Feb, [facility] [address] [id number] [place] [address] Feb, [facility] [address] [id number] [place] [address] Feb, [facility] [address] [facility] [id number] [place] [address] Feb, [facility] [address] [id number] [place] [address] Feb, [facility] [address] [id number] [place] [address] Feb, [facility] [address] [facility] [id number] [place] [address] Feb, [facility] [address] [id number] [place] [address] Jan, [facility] [place] [facility] [address] [id number] [place] [address] Jan, [facility] [place] [facility] [address] [id number] [place] [address] 44[address] Jan, [facility] [place] [facility] [address] [id number] [place] [address] 98[address] Jan, [facility] [place] [facility] [address] [id number] [place] [address] 1798 Jan, [facility] [place] [facility] [address] [id number] [place] [address] 24 Jan, 2013 [facility] [place] [facility] [address] [id number] [place] [address] Jan, [facility] [place] [facility] [address] [id number] [place] [address] Jan, [facility] [place] [facility] [address] [id number] [place] [address] Jan, [facility] [place] [facility] [address] [id number] [place] [address] Jan, [facility] [place] [facility] [address] [id number] [place] [address]18 17 Jan, 2013 [facility] [place] [facility] [address] [id number] [place] [address] 17 Jan, 2013 [facility] [place] [facility] [address] [id number] [place] [address]- [address]761 16 Jan, 2013 [facility] [address] [id number] [place] [address]- [address] Jan, [facility] [place] [facility] [address] [id number] [place] [address]- [address]69 Jan, [facility] [place] [facility] [address] [id number] [place] [address] Jan, [facility] [place] [facility] [address] [id number] [place] [address] Jan, [facility] [place] [facility] [address] [id number] [place] [address]- [address] 05 Jan, 2013 [facility] [place] [facility] [address] [id number] [place] [address]- [address] 05 Jan, 2013 [facility] [place] [facility] [address] [id number] [place] [address]- [address] 05 Jan, 2013 [facility] [place] [facility] [address] [id number] [place] [address] Jan, [facility] [place] [facility] [address] [id number] [place] [address]80 Dec, [facility] [place] [facility] [address] [id number] [place] [address] Dec, [facility] [place] [facility] [address] [facility] [id number] [place] [address] Dec, [facility] [place] [facility] [address] [id number] [place] [address] Dec, [facility] [place] [facility] [address] [id number] [place] [address] Dec, [facility] [place] [facility] [address] [id number] [place] [address] Dec, [facility] [place] [facility] [address] [id number] [place] [address]365 Dec, [facility] [place] [facility] [address] [id number] [place] [address]- 49[address] Dec, [facility] [place] [facility] [address] [id number] [place] [address]- [address] Dec, [facility] [place] [facility] [address] [id number] [place] [address]- 3685 Dec, [facility] [place] [facility] [address] [id number] [place] [address] Nov, [facility] [place] [facility] [address] [id number] [place] [address] 31 Nov, 2012 [facility] [place] [facility] [address] [id number] [place] [address] Nov, [facility] [place] [facility] [address] [id number] [place] [address] 4183 Nov, [facility] [place] [facility] [address] [id number] [place] [address] 67[address] Nov, [facility] [place] [facility] [address] [id number] [place] [address] 1330 11 Nov, 2012 [facility] [place] [facility] [address] [id number] [place] [address] 264[address] Nov, [facility] [place] [facility] [address] [id number] [place] [address] 2266 Nov, [facility] [place] [facility] [address] [id number] [place] [address]- 2376 10 Nov, 2012 [facility] [place] [facility] [address] [id number] [place] [address] 2547 Nov, [facility] [place] [facility] [address] [id number] [place] [address]- 7816 Oct, [facility] [place] [facility] [address] [id number] [place] [address]- 5189 Oct, [facility] [place] [facility] [address] [id number] [place] [address]- 3627 Oct, [facility] [place] [facility] [address] [id number] [place] [address]- 5502 Oct, [facility] [place] [facility] [address] [id number] [place] [address]- 4398 Oct, [facility] [place] [facility] [address] [id number] [place] [address]- 3065 Sep, [facility] [place] [facility] [address] [id number] [place] [address] 2545 Sep, [facility] [place] [facility] [address] [id number] [place] [address]- 2544 Aug, [facility] [place] [facility] [address] [id number] [place] [address]- 1168 Aug, [facility] [place] [facility] [address] [id number] [place] [address]- 6245 Aug, [facility] [place] [facility] [address] [id number] [place] [address]- 4376 Aug, [facility] [place] [facility] [address] [id number] [place] [address]- 6946 Aug, [facility] [address] [id number] [place] [address]- 9582 Aug, [facility] [address] [id number] [place] [address]- 7001 Aug, [facility] [address] [id number] [place] [address]- 7461 Jul, [facility] [address] [id number] [place] [address]- 6995 Jul, [facility] [address] [id number] [place] [address]- 6408 June, [facility] [address] [id number] [place] [address]- 0630 June, [facility] [address] [id number] [place] [address]- 1458 June, [facility] [address] [id number] [place] [address]- 1573 June, [facility] [address] [id number] [place] [address]- 9365 June, [facility] [address] [id number] [place] [address]- 7728 June, [facility] [address] [id number] [place] [address]- 1324 June, [facility] [address] [id number] [place] [address]- 0339 June, [facility] [address] [id number] [place] [address]- 1126 June, [facility] [address] [id number] [place] [address]- 2546 June, [facility] [address] [id number] [place] [address] 0495 June, [facility] [address] [id number] [place] [address]- 7870 May, [facility] [address] [id number] [place] [address]- 8097 May, [facility] [address] [id number] [place] [address]- 5862 May, [facility] [address] [id number] [place] [address]- 3004 May, [facility] [address] [id number] [place] [address]- 6976 Apr, [facility] [address] [id number] [place] [address]- 4366 Apr, [facility] [address] [id number] [place] [address]- 3385 Apr, [facility] [address] [id number] [place] [address]- 0014 Mar, [facility] [address] [id number] [place] [address]- 9635 Mar, [facility] [address] [id number] [place] [address]- 6114 Feb, [facility] [address] [id number] [place] [address]- 2225 Feb, [facility] [place] [facility] [address] [id number] [place] [address]- 5528 Feb, [facility] [place] [facility] [address] [id number] [place] [address]- 6127 Feb, [facility] [place] [facility] [address] [id number] [place] [address]- 6541 16 Feb, 2012 [facility] [place] [facility] [address] [id number] [place] [address]- 8494 14 Feb, 2012 [facility] [place] [facility] [address] [id number] [place] [address]- 9028 08 Feb, 2012 [facility] [place] [facility] [address] [id number] [place] [address]- 2956 Jan, [facility] [place] [facility] [address] [id number] [place] [address]- 1636 Jan, [facility] [place] [facility] [address] [id number] [place] [address]- 4816 Jan, [facility] [place] [facility] [address] [id number] [place] [address]- 2070 Jan, [facility] [place] [facility] [address] [id number] [place] [address]- 9396 Jan, [facility] [place] [facility] [address] [id number] [place] [address]- 2494 Jan, [facility] [place] [facility] [address] [id number] [place] [address]- 6996 Jan, [facility] [place] [facility] [address] [id number] [place] [address]- 8593 Jan, [facility] [place] [facility] [address] [id number] [place] [address]- 2654 Jan, [facility] [place] [facility] [address] [id number] [place] [address]- 0832 Jan, [facility] [place] [facility] [address] [id number] [place] [address]- 0406 Jan, [facility] [place] [facility] [address] [id number] [place] [address]- 8707 Dec, [facility] [place] [facility] [address] [id number] [place] [address]- 6296 Dec, [facility] [place] [facility] [address] [id number] [place] [address]- 2546 Dec, [facility] [place] [facility] [address] [id number] [place] [address]- 1161 Dec, [facility] [place] [facility] [address] [id number] [place] [address]- 4834 Nov, [facility] [place] [facility] [address] [id number] [place] [address]- 7973 22 Nov, 2011 [facility] [place] [facility] [address] [id number] [place] [address]- 8014 08 Nov, 2011 [facility] [place] [facility] [address] [id number] [place] [address]- 6372 27 Oct, 2011 [facility] [place] [facility] [address] [id number] [place] [address]- 0945 24 Oct, 2011 [facility] [place] [facility] [address] [id number] [place] [address]- 9480 21 Oct, 2011 [facility] [place] [facility] [address] [id number] [place] [address]- 2795 10 Oct, 2011 [facility] [place] [facility] [address] [id number] [place] [address]- 1312 07 Oct, 2011 [facility] [place] [facility] [address] [id number] [place] [address]- 9289 04 Oct, 2011 [facility] [place] [facility] [address] [id number] [place] [address]- 5250 04 Oct, 2011 [facility] [place] [facility] [address] [id number] [place] [address]- 2265 29 Sep, 2011 [facility] [place] [facility] [address] [id number] [place] [address]- 2698 Sep, [facility] [place] [facility] [address] [id number] [place] [address]- 1940 Sep, [facility] [place] [facility] [address] [id number] [place] [address]- 3221 13 Sep, 2011 [facility] [place] [facility] [address] [id number] [place] [address]- 2966 07 Sep, 2011 [facility] [place] [facility] [address] [id number] [place] [address]- 5724 30 Aug, 2011 [facility] [place] [facility] [address] [id number] [place] [address]- 7536 26 Aug, 2011 [facility] [place] [facility] [address] [id number] [place] [address] 2546 17 Aug, 2011 [facility] [place] [facility] [address] [id number] [place] [address] 2546 16 Aug, 2011 [facility] [place] [facility] [address] [id number] [place] [address] 2546 13 Aug, 2011 [facility] [place] [facility] [address] [id number] [place] [address]- 5099 Aug, [facility] [place] [facility] [address] [id number] [place] [address]- 6466 03 Aug, 2011 [facility] [place] [facility] [address] [id number] [place] [address]- 5137 28 Jul, 2011 [facility] [place] [facility] [address] [id number] [place] [address]- 4160 26 Jul, 2011 [facility] [place] [facility] [address] [id number] [place] [address]- 2745 22 Jul, 2011 [facility] [place] [facility] [address] [id number] [place] [address]- 7960 Jul, [facility] [place] [facility] [address] [id number] [place] [address]- 2633 12 Jul, 2011 [facility] [place] [facility] [address] [id number] [place] [address]- 2543 Jul, [facility] [place] [facility] [address] [id number] [place] [address]- 4997 07 Jul, 2011 [facility] [place] [facility] [address] [id number] [place] [address]- 4206 06 Jul, 2011 [facility] [place] [facility] [address] [id number] [place] [address]- 4879 05 Jul, 2011 [facility] [place] [facility] [address] [id number] [place] [address]- 1825 June, [facility] [address] [id number] [place] [address]- 5090 June, [facility] [address] [id number] [place] [address]- 7435 June, [facility] [address] [id number] [place] [address]- 8782 June, [facility] [address] [id number] [place] [address]- 1037 June, [facility] [address] [id number] [place] [address]- 6411 June, [facility] [address] [id number] [place] [address]- 1742 June, [facility] [address] [id number] [place] [address]- 9019 June, [facility] [address] [id number] [place] [address]- 6731 May, [facility] [address] [id number] [place] [address]- 4046 May, [facility] [place] [facility] [address] [id number] [place] [address]- 7183 May, [facility] [place] [facility] [address] [id number] [place] [address]- 6640 19 May, 2011 [facility] [place] [facility] [address] [id number] [place] [address]- 5643 16 May, 2011 [facility] [place] [facility] [address] [id number] [place] [address]- 9089 May, [facility] [place] [facility] [address] [id number] [place] [address]- 6777 May, [facility] [place] [facility] [address] [id number] [place] [address]- 7476 Apr, [facility] [address] [id number] [place] [address]- 2113 Apr, [facility] [place] [facility] [address] [id number] [place] [address]- 3766 Apr, [facility] [place] [facility] [address] [facility] [id number] [place] [address]- 0816 Apr, [facility] [place] [facility] [address] [id number] [place] [address]- 2427 Apr, [facility] [place] [facility] [address] [id number] [place] [address]- 7600 Apr, [facility] [place] [facility] [address] [facility] [id number] [place] [address]- 5453 Apr, [facility] [place] [facility] [address] [facility] [id number] [place] [address]- 7412 Mar, [facility] [place] [facility] [address] [id number] [place] [address]- 4630 Mar, [facility] [place] [facility] [address] [id number] [place] [address]- 4282 14 Mar, 2011 [facility] [place] [facility] [address] [facility] [id number] [place] [address]- 3596 13 Mar, 2011 [facility] [place] [facility] [address] [facility] [id number] [place] [address]- 3886 Mar, [facility] [place] [facility] [address] [id number] [place] [address]- 0136 Mar, [facility] [place] [facility] [address] [id number] [place] [address]- 1890 Mar, [facility] [place] [facility] [address] [facility] [id number] [place] [address]- 4576 Feb, [facility] [place] [facility] [address] [facility] [id number] [place] [address]- 1349 Feb, [facility] [place] [facility] [address] [id number] [place] [address]- 0514 Feb, [facility] [address] [id number] [place] [address]- 5451 Feb, [facility] [address] [id number] [place] [address]- 3273 Feb, [facility] [address] [id number] [place] [address]- 1817 Feb, [facility] [address] [id number] [place] [address]- 7337 Feb, [facility] [address] [id number] [place] [address]- 6051 Feb, [facility] [address] [id number] [place] [address]- 5700 Feb, [facility] [address] [id number] [place] [address]- 8334 Feb, [facility] [address] [id number] [place] [address]- 3106 Jan, [facility] [address] [id number] [place] [address]- 1954 Jan, [facility] [address] [id number] [place] [address]- 9416 Jan, [facility] [address] [id number] [place] [address]- 1859 Jan, [facility] [address] [id number] [place] [address]- 7230 Jan, [facility] [place] [facility] [address] [id number] [place] [address]- 2986 Jan, [facility] [place] [facility] [address] [id number] [place] [address]- 5698 15 Jan, 2011 [facility] [place] [facility] [address] [id number] [place] [address]- 6720 15 Jan, 2011 [facility] [place] [facility] [address] [id number] [place] [address]- 5093 08 Jan, 2011 [facility] [place] [facility] [address] [id number] [place] 5305 Jan, [facility] [place] [facility] [address] [facility] [id number] [place] [address]88 Jan, [facility] [place] [facility] [address] [id number] [place] [address]- 9336 Dec, [facility] [place] [facility] [address] [id number] [place] [address]- 5602 Dec, [facility] [place] [facility] [address] [id number] [place] [address]- 9183 Dec, [facility] [place] [facility] [address] [id number] [place] [address]- 2196 16 Dec, 2010 [facility] [place] [facility] [address] [id number] [place] [address]- 9159 14 Dec, 2010 [facility] [place] [facility] [address] [id number] [place] [address]- 3110 Dec, [facility] [place] [facility] [address] [id number] [place] [address]- 3101 Dec, [facility] [place] [facility] [address] [id number] [place] [address]- 3129 Dec, [facility] [place] [facility] [address] [id number] [place] [address]- 9758 Dec, [facility] [place] [facility] [address] [id number] [place] [address]- 0989 Nov, [facility] [place] [facility] [address] [id number] [place] [address]- 5277 Nov, [facility] [place] [facility] [address] [id number] [place] [address]- 1509 Nov, [facility] [place] [facility] [address] [id number] [place] [address]- 5979 24 Nov, 2010 [facility] [address] [id number] [place] [address]- 4483 24 Nov, 2010 [facility] [address] [id number] [place] [address]- 8436 13 Nov, 2010 [facility] [address] [id number] [place] [address]- 2177 11 Aug, 2010 [facility] [address] [id number] [place] [address]- 6096 14 Feb, 2010 [facility] [address] [id number] [place] [address]- 1037 14 Jan, 2010 [facility] [address] [id number] [place] [address]- 9864 06 Jan, 2010 [facility] [address] [id number] [place] [address]- 9488 Jan, [facility] [address] [id number] [place] [address]- 1313 Jan, [facility] [address] [id number] [place] [address]- 5423 Jan, [facility] [address] [id number] [place] [address]- 3858 24 Dec, 2009 [facility] [place] [facility] [address] [id number] [place] [address] 2545 Dec, [facility] [address] [id number] [place] [address]- 5269 Dec, [facility] [place] [facility] [address] [id number] [place] [address]- 4378 Dec, [facility] [place] [facility] [address] [id number] [place] [address]- 7333 Nov, [facility] [address] [id number] [place] [address]- 5504 Nov, [facility] [address] [facility] [id number] [place] [address]- 4009 Nov, IMMUNIZATIONS No Known Immunizations SOCIAL HISTORY Never Assessed REASON FOR VISIT pen needles PLAN OF CARE VITAL SIGNS MEDICATIONS Medication Instructions Dosage Frequency Start Date End Date Duration Status BD Ultra-Fine Micro Pen Needle 32G X 6 MM as directed Nov, Active RESULTS No Results PROCEDURES No Known [...]
--- OUTSIDE RECORDS SUMMARY | 2018-01-13 20:38 | XMS REPORT ---
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 Active 594859349 Problem Hypertension I10 Active 02589065 Problem Arthritis M19.90 Active 3563966 Problem 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 Active 60136950 Problem Anxiety F41.9 Active 21102064 Problem Unspecified episodic mood disorder F39 Active 27770883 Problem Left hip pain M25.552 Active 55996650 ALLERGIES No Information ENCOUNTERS Encounter Location Date Diagnosis [facility] [address] [facility] [id number] [address] Nov, [facility] [id number] [address] Nov, Arthritis M19.90 and Unspecified episodic mood disorder F39 [facility] [id number], [place] [address] Oct, [facility] [address] [address] Oct, Chronic hepatitis C without hepatic coma B18.2 and Encounter for immunization Z23 [facility] [id number] [place] [address] 13203- 9587 Oct, [facility] [id number] [place] [address] 19325- 3186 Oct, Arthritis M19.90 and Unspecified episodic mood disorder F39 [facility] [id number] [place] [address] 87249- 9923 Sep, Chronic hepatitis C without hepatic coma B18.2 [facility] [id number] [place] [address] 75618- 1606 Sep, Gastroesophageal reflux disease, esophagitis presence not specified K21.9 and Other chronic pain G89.29 [facility] [id number] [place] [address] 71710- 4165 Sep, [facility] [id number] [place] [address] 84737- 2428 Sep, [facility] [id number] [place] [address] 51839- 7285 Sep, Chronic hepatitis C without hepatic coma B18.2 [facility] [id number] [place] [address] 32068- 2697 Sep, 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 [facility] [address], [place] [address] 3918 Sep, Arthritis M19.90 [facility] [id number] [place] [address] 04788- 1114 Sep, [facility] [id number] [place] [address] 31745- 7293 Sep, Unspecified episodic mood disorder F39 [facility] [address], [place] [address] Aug, [facility] [id number] [place] [address] [id number] Aug, [facility] [address], [place] [address] 2883 Aug, Arthritis M19.90 [facility] [id number] [place] [address] 84642- 3547 Aug, [facility] [id number] [place] [address] 90479- 8107 Aug, Obesity (BMI 30.0-34.9) E66.9 ; Unspecified episodic mood disorder F39 and Hypertension I10 [facility] [id number] [place] [address] 16447- 0222 Aug, Unspecified episodic mood disorder F39 [facility] [id number] [place] [address] 43347- 3158 Aug, [facility] [id number] [place] [address] 59747- 1106 Jul, Unspecified episodic mood disorder F39 [facility] [id number] [place] [address] 76832- 2332 Jul, [facility] [address], [place] [address] 3468 Jul, Arthritis M19.90 [facility] [id number] [place] [address] 11099- 0154 Jul, Left hip pain M25.552 ; Hypertension I10 ; Other obesity due to excess calories E66.09 and Body mass index (BMI) of 34.0-34.9 in adult Z68.34 [facility] [address], [place] [address] 0770 Jul, Unspecified episodic mood disorder F39 [facility] [id number] [place] [address] 16596- 8967 June, Gastroesophageal reflux disease, esophagitis presence not specified K21.9 [facility] [id number] [place] [address] 51359- 7813 June, [facility] [id number] [place] [address] 18104- 2696 June, [facility] [id number] [place] [address] 98398- 9895 June, Arthritis M19.90 [facility] [id number] [place] [address] 77738- 7643 June, [facility] [id number] [place] [address] 18590- 9631 June, [facility] [id number] [place] [address] 46942- 0806 June, Unspecified episodic mood disorder F39 [facility] [id number] [place] [address] 91273- 9520 May, Unspecified episodic mood disorder F39 [facility] [id number] [place] [address] 21333- 3828 May, [facility] [id number] [place] [address] 25613- 5890 May, Arthritis M19.90 [facility] [id number] [place] [address] 56499 -3029 May, Dysuria R30.0 ; Abscess L02.91 and Acute cystitis without hematuria N30.00 [facility] [id number] [place] [address] 14403- 8930 May, 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 ; Unspecified episodic mood disorder F39 ; Combined drug dependence excluding opioids, 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9 [facility] [id number] [place] [address] 31882- 6605 May, Other chronic pain G89.29 ; Left hip pain M25.552 ; Hypertension I10 ; 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, 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 and Unspecified episodic mood disorder F39 [facility] [id number] [place] [address] 65031- 7335 Apr, [facility] [id number] [place] [address] 16416 -0533 Apr, Neck pain M54.2 ; Left hip pain M25.552 and Fall, initial encounter W19.XXXA [facility] [id number] [place] [address] 61918- 3248 Apr, Unspecified episodic mood disorder F39 ; Combined drug dependence excluding opioids, 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 ; Anxiety F41.9 ; Other psychoactive substance dependence, 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 and 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 [facility] [id number] [place] [address] 29459- 1903 Apr, [facility] [id number] [place] [address] 06270- 5726 Apr, Arthritis M19.90 and Unspecified episodic mood disorder F39 [facility] [id number] [place] [address] 24693- 3952 Apr, Unspecified episodic mood disorder F39 [facility] [id number] [place] [address] 54942- 3051 13 Apr, 2017 [facility] [address] 74072- 2392 Apr, [facility] [id number] [place] [address] 02819- 4475 Apr, Unspecified episodic mood disorder F39 ; Combined drug dependence excluding opioids, 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 ; Anxiety F41.9 ; Other psychoactive substance dependence, 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 and 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 [facility] [id number] [place] [address] 57828- 8632 Mar, Unspecified episodic mood disorder F39 [facility] [id number] [place] [address] 90167- 7993 Mar, Gastroesophageal reflux disease, esophagitis presence not specified K21.9 [facility] [id number] [place] [address] 18593- 0075 Mar, Arthritis M19.90 and Unspecified episodic mood disorder F39 [facility] [id number] [place] [address] 15825- 8468 Feb, [facility] [id number] [place] [address] 72761- 8636 Feb, [facility] [id number] [place] [address] 08552- 2231 Feb, [facility] [id number] [place] [address] 15701- 8375 Feb, Arthritis M19.90 [facility] [id number] [place] [address] 12972- 9083 Feb, Non-pressure chronic ulcer of right calf, 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 ; Unspecified episodic mood disorder F39 and Left hip pain M25.552 [facility] [id number] [place] [address] 43918- 3352 Feb, [facility] [id number] [place] [address] 01421- 7553 Feb, [facility] [address] [place] [address]- 9977 Jan, Arthritis M19.90 [address] 34437- 4650 Jan, Left hip pain M25.552 and Non-pressure chronic ulcer of right calf, 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 [address] [place] [id number] [place] [address] 56878- 4121 Jan, Chronic hepatitis C without hepatic coma B18.2 [address] 11170- 4394 Jan, Encounter for immunization Z23 ; Venous insufficiency ( chronic) (peripheral) I87.2 ; Non-pressure chronic ulcer of unspecified calf limited to breakdown of skin L97.201 and Gastroesophageal reflux disease, esophagitis presence not specified K21.9 [address] [id number] [place] [address] 71596- 8581 Jan, [address] [place] [id number] [place] [address] 14392- 9892 Jan, Chronic hepatitis C without hepatic coma B18.2 and Encounter for immunization Z23 [address] [id number] [place] [address] 97520- 0304 Jan, Arthritis M19.90 [id number] [place] [address] 46786- 1642 Jan, [address] [place] [id number] [place] [address] 55603- 7936 Dec, [address] [place] [id number] [place] [address] 29703- 3816 Dec, Unspecified episodic mood disorder F39 [address] [place] [id number] [place] [address] 51368- 1722 Dec, Arthritis M19.90 [address] [place] [id number] [place] [address] 35705- 1017 Dec, Arthritis M19.90 [facility] [address], [place] [address]- 0346 Nov, [facility] [id number] [place] [address] 64268- 6684 Nov, [facility] [id number] [place] [address] 37337- 7561 Nov, Other psychoactive substance dependence, 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 ; 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, 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 and Chronic hepatitis C without hepatic coma B18.2 [facility] [id number] [place] [address] 93191- 0855 Nov, Arthritis M19.90 [facility] [id number] [place] [address] 62264 -6774 Oct, Partial thickness burn of abdomen, initial encounter T21.22XA [facility] [id number] [place] [address] 18571- 3745 Oct, [facility] [id number] [place] [address] 19456- 7933 Sep, Arthritis M19.90 [facility] [id number] [place] [address] 55580- 8193 Sep, [facility] [id number] [place] [address] 14792- 8888 Sep, [facility] [id number] [place] [address] 64308- 7433 Sep, Unspecified episodic mood disorder F39 ; Chronic hepatitis C without hepatic coma B18.2 and Left hip pain M25.552 [facility] [id number] [place] [address] 33948- 3794 Sep, Arthritis M19.90 and Left hip pain M25.552 [facility] [id number] [place] [address] 90534- 8989 Aug, [facility] [address], [place] [address]- 7278 Aug, [facility] [id number] [place] [address] 30734- 2241 Aug, Chronic hepatitis C without hepatic coma B18.2 [facility] [id number] [address]- 4154 Aug, [facility] [id number] [place] [address] 32787- 8177 Aug, Chronic hepatitis C without hepatic coma B18.2 [facility] [id number] [place] [address] 30858- 3210 Aug, 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, 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 [facility] [id number] [address]- 6212 Aug, [facility] [id number] [place] [address] 65728- 0118 Aug, Chronic hepatitis C without hepatic coma B18.2 and Hypertension I10 [facility] [address], [place] [address]- 4021 Jul, [facility] [address], [place] [address]- 9064 June, [facility] [address], [place] [address]- 1566 Apr, Fibromyalgia M79.7 ; Left hip pain M25.552 and Decubitus ulcer of sacral region, stage 1 L89.151 [facility] [address], [place] [address]- 3782 Apr, [facility] [id number] [place] [address] 60159- 9831 Apr, [facility] [address], [place] [address]- 4244 Feb, [facility] [id number] [place] [address] 71000- 6576 Dec, Anxiety F41.9 ; Combined drug dependence excluding opioids, 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 and Unspecified episodic mood disorder F39 [facility] [id number] [place] [address] 01909- 4559 Dec, [facility] [id number] [place] [address] 52129- 9051 Nov, [facility] [address] 06852- 0338 Nov, [facility] [id number] [place] [address] 90196- 8231 Nov, 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 and Anxiety F41.9 [facility] [id number] [place] [address] 28387- 0670 Oct, [facility] [address] 49342 -6619 14 Oct, 2015 Open wound of left thigh, initial encounter S71.102A [facility] [id number] [place] [address] 40696- 8983 Oct, [facility] [id number] [place] [address] 47758- 3259 Sep, Unspecified episodic mood disorder F39 ; Other disorder of impulse control 312.39 ; Combined drug dependence excluding opioids, 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 and Anxiety F41.9 [facility] [id number] [place] [address] 47055- 1713 Sep, Other disorder of impulse control 312.39 ; Combined drug dependence excluding opioids, 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 ; Anxiety F41.9 and Unspecified episodic mood disorder F39 [facility] [id number] [place] [address] 38301- 1417 Sep, Other chronic pain G89.29 [facility] [id number] [place] [address] 76100- 2688 Sep, [facility] [address], [place] [address]- 3385 Sep, [facility] [id number] [place] [address] 86105- 0851 Aug, [facility] [address], [place] [address]- 1609 Aug, [facility] [id number] [place] [address] 24111- 2325 Aug, [facility] [id number] [place] [phone] Jul, [facility] [place] [id number] [place] [phone] Jul, [facility] [place] [id number] [place] [address]14- [address] Jul, [facility] [place] [id number] [place] [address] Jul, Arthritis M19.90 ; Chronic hepatitis C without hepatic coma B18.2 and Left hip pain M25.552 [facility] [place] [id number] [place] [address]- [address] Jul, Left knee pain M25.562 [facility] [place] [id number] [place] [address]21[address] Jul, Combined drug dependence excluding opioids, 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 ; Anxiety F41.9 ; Other disorder of impulse control 312.39 and Unspecified episodic mood disorder F39 [facility] [place] [address], [place] [address] Jul, Left knee pain M25.562 [facility] [place] [id number] [place] [id number]- [phone] 08 Jul, 2015 Left knee pain M25.562 and Left hip pain M25.552 [facility] [place] [id number] [place] [address] [phone]- [address]687 Jul, [facility] [place] [id number], [place] [address] June, [facility] [place] [id number] [place] [id number] June, Combinations of drug dependence excluding opioid type drug, 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 ; Other disorder of impulse control 312.39 ; Unspecified episodic mood disorder F39 and Anxiety F41.9 [facility] [id number] [place] [address]- [address] June, Other fatigue R53.83 ; Headache R51 and Left knee pain M25.562 [facility] [address] [id number] [place] [address] 87319- 2180 June, Unspecified episodic mood disorder F39 ; Combinations of drug dependence excluding opioid type drug, 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 ; Other disorder of impulse control 312.39 and Anxiety F41.9 [facility] [address] [id number] [place] [address] 13383- 8736 June, Anxiety F41.9 [facility] [id number] [place] [address] 19814- 6141 June, Pain in left knee M25.562 [facility] [id number] [place] [address] 18860- 7350 June, Anxiety F41.9 and Combinations of drug dependence excluding opioid type drug, 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 [place] [place] [address] [address] 4176 June, Unspecified episodic mood disorder 296.90 ; Combinations of drug dependence excluding opioid type drug, 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 and Other disorder of impulse control 312.39 [facility] [place] [id number] [place] [address] 72095- 7047 June, Anxiety F41.9 and Unspecified episodic mood disorder 296.90 [facility] [place] [id number] [place] [address] 93855- 0650 May, Arthritis M19.90 [facility] [address], [place] [address] 4869 May, Arthritis M19.90 [facility] [id number] [place] [address] 49291- 5061 May, Anxiety F41.9 ; Combinations of drug dependence excluding opioid type drug, 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 and Other disorder of impulse control 312.39 [facility] [id number] [place] [address] 71375- 5889 May, Left knee pain M25.562 [facility] [id number] [place] [address] 40342- 6637 May, Arthritis M19.90 [facility] [id number] [place] [address] 14398- 7372 May, [facility] [id number] [place] [address] 91607- 6858 May, Anxiety F41.9 ; Unspecified episodic mood disorder 296.90 ; Combinations of drug dependence excluding opioid type drug, 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 and Other disorder of impulse control 312.39 [facility] [id number] [place] [address] 67433- 7630 May, Left knee pain M25.562 [facility] [address] [place] [address] 77740- 3904 May, Left knee pain M25.562 ; Combinations of drug dependence excluding opioid type drug, 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 ; Other disorder of impulse control 312.39 ; Fibromyalgia M79.7 ; Hypertension I10 ; Unspecified episodic mood disorder 296.90 and Left hip pain M25.552 [facility] [id number] [place] [address] 42863- 4342 May, Unspecified episodic mood disorder 296.90 ; Other disorder of impulse control 312.39 ; Combinations of drug dependence excluding opioid type drug, 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 and Anxiety F41.9 [facility] [facility] [id number] [place] [address] 21848- 4143 May, Left knee pain M25.562 ; Combinations of drug dependence excluding opioid type drug, 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 ; Other disorder of impulse control 312.39 ; Fibromyalgia M79.7 ; Hypertension I10 ; Unspecified episodic mood disorder 296.90 and Left hip pain M25.552 [facility] [id number] [place] [address] 78175- 0459 May, Anxiety F41.9 ; Unspecified episodic mood disorder 296.90 ; Other disorder of impulse control 312.39 and Combinations of drug dependence excluding opioid type drug, 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 [facility] [id number] [place] [address] 88297- 6530 Apr, 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 and 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, implants and grafts, initial encounter T84.82XA [facility] [id number] [place] [address] 72963- 7689 Apr, Anxiety F41.9 ; Unspecified episodic mood disorder 296.90 ; Combinations of drug dependence excluding opioid type drug, 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 and Other disorder of impulse control 312.39 [facility] [id number] [place] [address] 76221- 7839 Apr, Arthritis M19.90 [facility] [id number] [place] [address] 49515- 4233 Apr, Anxiety F41.9 ; Unspecified episodic mood disorder 296.90 ; Combinations of drug dependence excluding opioid type drug, 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 and Other disorder of impulse control 312.39 [facility] [id number] [place] [address] 02426- 8923 Apr, Arthritis M19.90 [facility] [id number] [place] [address] 40783- 8652 Apr, [facility] [id number] [place] [address] 08797- 0697 Apr, [facility] [address], [place] [address]- 2653 14 Apr, 2015 Unspecified episodic mood disorder 296.90 ; Combinations of drug dependence excluding opioid type drug, 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 ; Other disorder of impulse control 312.39 and Anxiety F41.9 [facility] [address], [place] [address] 11 Apr, 2015 Left knee pain M25.562 [facility] [id number] [place] [address] 68688- 6865 11 Apr, 2015 [facility] [id number] [place] [address] 06112- 7800 29 Mar, 2015 Unspecified episodic mood disorder 296.90 ; Anxiety F41.9 ; Other disorder of impulse control 312.39 and Combinations of drug dependence excluding opioid type drug, 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 [facility] [id number] [place] [address] 54507- 5696 Mar, Hyperpigmentation L81.9 [facility] [id number] [place] [address] 10005- 1212 Mar, Arthritis M19.90 and Anxiety F41.9 [facility] [place] [address] [place] [address] 56657- 8117 Mar, Unspecified episodic mood disorder F39 ; Combined drug dependence excluding opioids, 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 ; 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 and Anxiety F41.9 [facility] [address], [place] [address]- 4274 12 Mar, 2015 Well woman exam Z01.419 ; Other fatigue R53.83 ; Hot flashes N95.1 ; Depression, unspecified depression type F32.9 and Body mass index (BMI) of 23.0-23.9 in adult Z68.23 [facility] [address] [place] [address] 74281- 8758 11 Mar, 2015 Unspecified episodic mood disorder 296.90 ; Other disorder of impulse control 312.39 and Anxiety F41.9 [place] [address] 96279- 0679 11 Mar, 2015 Well woman exam Z01.419 [...] of breast Z12.39 and Limited mobility Z74.09 [facility] [address] 86703- 5831 Mar, [facility] [address] 76111- 4573 Mar, [facility] [address] 25772- 7499 Mar, [facility] [address] 86493- 4470 Mar, Other specified complication of internal orthopedic prosthetic devices, implants and grafts, initial encounter T84.89XA ; Fibromyalgia M79.7 ; Hypertension I10 ; Anemia D64.9 ; Insomnia G47.00 ; Anxiety F41.9 ; Arthritis M19.90 and Migraine G43.909 [facility] [address] 59682- 3345 Mar, [facility] [address] 96299- 2821 Feb, [facility] [address] 70539- 8448 Feb, Arthritis M19.90 and Anxiety F41.9 [facility] [address], [place] [address]- 1465 Feb, [facility] [address], [place] [address]- 8309 Feb, [facility] [id number] [place] [address] 48512- 0571 Feb, [facility] [id number] [place] [address] 73414- 1354 Feb, [facility] [id number] [place] [address] 12146- 4173 Feb, Anxiety F41.9 [facility] [id number] [place] [address] 44614- 1055 Feb, [facility] [id number] [place] [address] 85660- 7077 Feb, [facility] [id number] [place] [address] 19661- 4919 Feb, 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 and Fibromyalgia M79.7 [facility] [address], [place] [address]- 7021 Feb, [facility] [address], [place] [address]- 0224 Jan, [facility] [address], [place] [address]- 8502 Jan, [facility] [address], [place] [address]- 3743 Jan, [facility] [address], [place] [address]- 2451 Jan, [facility] [address], [place] [address]- 2986 Jan, [facility] [id number] [address]- 8036 08 Jan, 2015 [facility] [id number] [place] [address] 91026- 2686 Jan, [facility] [id number] [place] [address] 899441- 5663 Jan, [facility] [id number] [place] [address] 98403- 3065 Dec, [facility] [id number] [place] [address] 62003- 8266 Dec, Left knee pain M25.562 [facility] [id number] [place] [address] 31237- 7298 Dec, Left knee pain M25.562 [facility] [id number] [place] [address] 60988- 6674 Dec, Fibromyalgia M79.7 ; Hypertension I10 and Arthritis M19.90 [facility] [address], [place] [address]- 1045 Dec, [facility] [id number] [place] [address] 03283- 1988 Dec, [facility] [address], [place] [address]- 0144 Dec, [facility] [id number] [place] [address] 12758- 4584 Dec, [facility] [address], [place] [address]- 1508 Nov, [facility] [id number] [place] [address] 49899- 5405 Nov, [facility] [address], [place] [address]- 5325 Nov, [facility] [id number] [place] [address] 20244- 4636 Nov, Hypertension I10 [facility] [address] [id number] [place] [address]- 2875 23 Oct, 2014 [facility] [address] [id number] [place] [address] 2546 17 Oct, 2014 [facility] [address] [id number] [place] [address] 2546 04 Oct, 2014 [facility] [address] [id number] [place] [address] 2542 Oct, 2014 [facility] [address] [id number] [place] [address] 2542 Oct, [facility] [address] [id number], [place] [address]- 9568 Sep, [facility] [address] [facility] [id number] [place] [address]- 5500 Sep, [facility] [address] [facility] [id number], [place] [address]- 4726 Sep, Hip pain associated with recalled total hip arthroplasty hardware 996.77 [facility] [address] [facility] [id number] [place] [address]- 2729 Sep, [facility] [address] [facility] [id number], [place] [address]- 6481 Sep, [facility] [address] [facility] [id number], [place] [address]- 4194 Sep, [facility] [address] [id number], [place] [address]- 2933 Aug, [facility] [address] [facility] [id number], [place] [address]- 7169 Jul, [facility] [address] [facility] [id number], [place] [address]- 3784 June, [facility] [address] [facility] [id number], [place] [address]- 6128 June, [facility] [place] [facility] [address] [id number] [place] [address]- 0436 June, [facility] [place] [facility] [address] [id number] [place] [address]- 0580 June, [facility] [place] [facility] [address] [id number] [place] [address]- 0106 June, [facility] [place] [facility] [address] [id number] [place] [address]- 2556 June, [facility] [place] [facility] [address] [id number] [place] [address]- 1280 May, [facility] [place] [facility] [address] [id number] [place] [address]- 3449 May, [facility] [place] [facility] [address] [id number] [place] [address]- 8403 May, [facility] [place] [facility] [address] [id number] [place] [address]- 5089 Apr, [facility] [place] [facility] [address] [id number] [place] [address]- 8086 30 Apr, 2014 [facility] [place] [facility] [address] [id number] [place] [address]- 4409 Apr, [facility] [place] [facility] [address] [id number] [place] [address]- 4629 Apr, [facility] [place] [facility] [address] [id number] [place] [address]- 9323 Apr, [facility] [place] [facility] [address] [id number] [place] [address]- 9698 Apr, [facility] [place] [facility] [address] [id number] [place] [address]- 7516 Apr, [facility] [place] [facility] [address] [id number] [place] [address]- 9435 Apr, [facility] [place] [facility] [address] [id number] [place] [address]- 6034 Apr, [facility] [place] [facility] [address] [id number] [place] [address]- 4453 Apr, [facility] [place] [facility] [address] [id number] [place] [address]- 1863 Apr, [facility] [place] [facility] [address] [facility] [id number] [place] [address]- 3468 Mar, [facility] [place] [facility] [address] [id number] [place] [address]- 1895 Mar, [facility] [place] [facility] [address] [id number] [place] [address]- 1513 Mar, [facility] [place] [facility] [address] [facility] [id number] [place] [address]- 6278 Mar, [facility] [place] [facility] [address] [facility] [id number] [place] [address]- 2595 Mar, [facility] [place] [facility] [address] [facility] [id number] [place] [address]- 0878 Mar, [facility] [place] [facility] [address] [facility] [id number] [place] [address]- 2436 Feb, [facility] [place] [facility] [address] [facility] [id number] [place] [address]- 0695 Feb, [facility] [place] [facility] [address] [facility] [id number] [place] [address]- 3522 Feb, [facility] [place] [facility] [address] [facility] [id number] [place] [address]- 1345 Feb, [facility] [place] [facility] [address] [facility] [id number] [place] [address]- 6722 Jan, [facility] [place] [facility] [address] [facility] [id number] [place] [address]- 6398 Jan, [facility] [place] [facility] [address] [facility] [id number] [place] [address]- 7890 Jan, [facility] [place] [facility] [address] [id number] [place] [address]- 0875 Jan, [facility] [place] [facility] [address] [id number] [place] [address]- 7880 Dec, [facility] [place] [facility] [address] [id number] [place] [address]- 5415 Dec, [facility] [place] [facility] [address] [id number] [place] [address]- 5607 Dec, [facility] [place] [facility] [address] [id number] [place] [address]- 9164 Dec, [facility] [place] [facility] [address] [id number] [place] [address]- 3193 Dec, [facility] [place] [facility] [address] [id number] [place] [address]- 0297 Dec, [facility] [place] [facility] [address] [id number] [place] [address]- 9316 Dec, [facility] [place] [facility] [address] [id number] [place] [address]- 4611 Dec, [facility] [place] [facility] [address] [id number] [place] [address]- 6703 Dec, [facility] [place] [facility] [address] [facility] [id number] [place] [address]- 6773 Dec, [facility] [place] [facility] [address] [id number] [place] [address]- 8949 Dec, [facility] [place] [facility] [address] [id number] [place] [address]- 8116 Nov, [facility] [place] [facility] [address] [id number] [place] [address]- 3695 Nov, [facility] [place] [facility] [address] [id number] [place] [address]- 4040 Nov, [facility] [place] [facility] [address] [id number] [place] [address]- 0819 Nov, 2013 [facility] [place] [facility] [address] [id number] [place] [address]- 7290 17 Nov, 2013 [facility] [place] [facility] [address] [id number] [place] [address]- 1636 15 Nov, 2013 [facility] [place] [facility] [address] [id number] [place] [address]- 6036 15 Nov, 2013 [facility] [place] [facility] [address] [id number] [place] [address]- 2787 15 Nov, 2013 [facility] [place] [facility] [address] [id number] [place] [address]- 6886 15 Nov, 2013 [facility] [place] [facility] [address] [id number] [place] [address]- 3743 14 Nov, 2013 [facility] [place] [facility] [address] [id number] [place] [address]- 2114 14 Nov, 2013 [facility] [place] [facility] [address] [id number], [place] [address]- 6390 14 Nov, 2013 [facility] [place] [facility] [address] [id number] [place] [address]- 8674 14 Nov, 2013 [facility] [place] [facility] [address] [id number], [place] [address]- 2343 13 Nov, 2013 [facility] [place] [facility] [address] [id number], [place] [address]- 4973 13 Nov, 2013 [facility] [place] [facility] [address] [id number], [place] [address]- 2386 11 Nov, 2013 [facility] [place] [facility] [address] [id number] [place] [address]- 8748 11 Nov, 2013 [facility] [place] [facility] [address] [id number], [place] [address]- 0336 07 Nov, 2013 [facility] [place] [facility] [address] [id number], [place] [address]- 0096 07 Nov, 2013 [facility] [place] [facility] [address] [id number] [place] [address]- 3053 07 Nov, 2013 [facility] [place] [facility] [address] [id number] [place] [address]- 2003 07 Nov, 2013 [facility] [place] [facility] [address] [id number] [place] [address]- 3616 30 Sep, 2013 [facility] [place] [facility] [address] [id number] [place] [address] 2546 30 Sep, 2013 [facility] [place] [facility] [address] [id number] [place] [address] 2543 26 Sep, 2013 [facility] [place] [facility] [address] [id number] [place] [address] 26 Sep, 2013 [facility] [place] [facility] [address] [id number] [place] [address] 2541 22 Oct, 2013 [facility] [place] [facility] [address] [id number] [place] [address] 22 Oct, 2013 [facility] [place] [facility] [address] [id number] [place] [address] 18 Sep, 2013 [facility] [place] [facility] [address] [id number] [place] [address] 2548 18 Sep, 2013 [facility] [place] [facility] [address] [id number] [place] [address] 18 Sep, 2013 [facility] [place] [facility] [address] [id number] [place] [address] 2548 18 Sep, 2013 [facility] [place] [facility] [address] [id number] [place] [address] 2548 12 Sep, 2013 [facility] [place] [facility] [address] [id number] [place] [address] 254 12 Sep, 2013 [facility] [place] [facility] [address] [id number] [place] [address] 03 Sep, 2013 [facility] [place] [facility] [address] [id number] [place] [address] 2548 03 Oct, 2013 [facility] [place] [facility] [address] [id number] [place] [address] Sep, [facility] [place] [facility] [address] [id number] [place] [address] Sep, [facility] [place] [facility] [address] [id number] [place] [address] Sep, [facility] [place] [facility] [address] [id number] [place] [address] Sep, [facility] [place] [facility] [address] [id number] [place] [address] Sep, [facility] [place] [facility] [address] [id number] [place] [address] Sep, [facility] [place] [facility] [address] [id number] [place] [address] Sep, [facility] [place] [facility] [address] [id number] [place] [address] Sep, [facility] [place] [facility] [address] [id number] [place] [address] Sep, [facility] [place] [facility] [address] [id number] [place] [address] Sep, [facility] [place] [facility] [address] [id number] [place] [address] Sep, [facility] [place] [facility] [address] [id number] [place] [address] Sep, [facility] [place] [facility] [address] [id number] [place] [address] Sep, [facility] [place] [facility] [address] [id number] [place] [address] Sep, [facility] [place] [facility] [address] [id number] [place] [address] Sep, [facility] [place] [facility] [address] [id number] [place] [address] Sep, [facility] [place] [facility] [address] [id number] [place] [address] [address] Sep, [facility] [place] [facility] [address] [id number] [place] [address] Sep, [facility] [place] [facility] [address] [id number] [place] [address] Aug, [facility] [place] [facility] [address] [id number] [place] [address] Aug, [facility] [place] [facility] [address] [id number] [place] [address] Aug, [facility] [place] [facility] [address] [id number] [place] [address] Aug, [facility] [place] [facility] [address] [id number] [place] [address] Aug, [facility] [place] [facility] [address] [id number] [place] [address] Aug, [facility] [place] [facility] [address] [id number] [place] [address] Jul, [facility] [place] [facility] [address] [id number] [place] [address] Jul, [facility] [place] [facility] [address] [id number] [place] [address] Jul, [facility] [place] [facility] [address] [id number] [place] [address] Jul, [facility] [place] [facility] [address] [id number] [place] [address] June, [facility] [place] [facility] [address] [address] [id number] [place] [address] June, [facility] [place] [facility] [address] [id number] [place] [address] June, [facility] [place] [facility] [address] [id number] [place] [address] 9[address] June, [facility] [address] [id number] [place] [address] 3510 June, [facility] [address] [id number] [place] [address] June, [facility] [address] [id number] [place] [address] 0771 June, [facility] [address] [id number] [place] [address] 1477 May, [facility] [address] [id number] [place] [address] 4974 May, [facility] [address] [id number] [place] [address] 5679 May, [facility] [place] [facility] [address] [id number] [place] [address] 8[address] May, [facility] [address] [id number] [place] [address] 6866 May, [facility] [place] [facility] [address] [id number] [place] [address] 6560 May, [facility] [address] [id number] [place] [address] 0609 31 Apr, 2013 [facility] [place] [facility] [address] [id number] [place] [address]- 4730 31 Apr, 2013 [facility] [place] [facility] [address] [id number] [place] [address]- 9293 28 Apr, 2013 [facility] [place] [facility] [address] [id number] [place] [address]- 2231 28 Apr, 2013 [facility] [place] [facility] [address] [id number] [place] [address]- 8486 14 Apr, 2013 [facility] [place] [facility] [address] [id number] [place] [address]- 6607 14 Apr, 2013 [facility] [place] [facility] [address] [id number] [place] [address]- 7149 Apr, [facility] [place] [facility] [address] [id number] [place] [address]- 4289 Apr, [facility] [place] [facility] [address] [id number] [place] [address]- 6888 Apr, [facility] [place] [facility] [address] [id number] [place] [address]- 8771 Apr, [facility] [place] [facility] [address] [id number] [place] [address]- 3754 Apr, [facility] [place] [facility] [address] [id number] [place] [address]- 0017 Apr, [facility] [place] [facility] [address] [id number] [place] [address]- 9506 Apr, [facility] [place] [facility] [address] [id number] [place] [address]- 4462 Apr, [facility] [place] [facility] [address] [id number] [place] [address] 1060 Mar, [facility] [place] [facility] [address] [id number] [place] [address]- 0549 Mar, [facility] [place] [facility] [address] [id number] [place] [address] 3729 Mar, [facility] [place] [facility] [address] [id number] [place] [address]- 1749 Feb, [facility] [place] [facility] [address] [id number] [place] [address] 3413 Feb, [facility] [place] [facility] [address] [id number] [place] [address]- 8376 Feb, [facility] [place] [facility] [address] [id number] [place] [address]- 1065 Feb, [facility] [place] [facility] [address] [id number] [place] [address]- 7677 Feb, [facility] [address] [id number] [place] [address]- 0834 Feb, [facility] [address] [id number] [place] [address]- 3274 Feb, [facility] [address] [id number] [place] [address] 3032 Feb, [facility] [place] [facility] [address] [id number] [place] [address] 8307 Feb, [facility] [address] [id number] [place] [address]- 6996 Feb, [facility] [address] [id number] [place] [address] 8040 Jan, [facility] [address] [id number] [place] [address]- 9568 Jan, [facility] [address] [id number] [place] [address]- 2469 Jan, [facility] [address] [id number] [place] [address]- 3455 Jan, [facility] [address] [id number] [place] [address]- 7719 Jan, [facility] [address] [id number] [place] [address]- 4698 Jan, [facility] [place] [facility] [address] [id number] [place] [address]- 2998 Jan, [facility] [place] [facility] [address] [id number] [place] [address]- 3695 Jan, [facility] [place] [facility] [address] [id number] [place] [address]- 6603 Jan, [facility] [place] [facility] [address] [id number] [place] Jan, [facility] [place] [facility] [address] [id number] [place] [address]- 8833 17 Jan, 2013 [facility] [address] [id number] [place] [address] Jan, [facility] [place] [facility] [address] [id number] [place] [address]- 6668 16 Jan, 2013 [facility] [place] [facility] [address] [id number] [place] [address]- 9769 Jan, [facility] [place] [facility] [address] [id number] [place] [address]- 4292 Jan, [facility] [place] [facility] [address] [id number] [place] [address]- 1804 Jan, [facility] [address] [id number] [place] Jan, [facility] [address] [id number] [place] [address]- 9437 Jan, [facility] [place] [facility] [address] [id number] [place] [address]- 3253 Jan, [facility] [place] [facility] [address] [id number] [place] [address]- 3018 Jan, [facility] [place] [facility] [address] [id number] [place] [address]- 3529 Jan, [facility] [place] [facility] [address] [id number] [place] [address]- 7473 Dec, [facility] [place] [facility] [address] [id number] [place] [address]- 3318 Dec, [facility] [place] [facility] [address] [id number] [place] [address]- 6530 Dec, [facility] [place] [facility] [address] [id number] [place] [address]- 8929 Dec, [facility] [place] [facility] [address] [id number] [place] [address]- 0878 Dec, [facility] [place] [facility] [address] [id number] [place] [address]- 8364 Dec, [facility] [place] [facility] [address] [id number] [place] [address]- 5791 Dec, [facility] [place] [facility] [address] [id number] [place] [address]- 6356 Dec, [facility] [place] [facility] [address] [id number], [place] [address]- 7548 Dec, [facility] [place] [facility] [address] [id number] [place] [address]- 7266 Dec, [facility] [place] [facility] [address] [id number], [place] [address]- 1356 Nov, [facility] [place] [facility] [address] [id number] [place] [address]- 8852 Nov, [facility] [place] [facility] [address] [id number], [place] [address]- 9643 Nov, [facility] [place] [facility] [address] [id number], [place] [address]- 6457 Nov, [facility] [place] [facility] [address] [id number], [place] [address]- 5917 Nov, [facility] [place] [facility] [address] [id number], [place] [address]- 4057 Nov, [facility] [place] [facility] [address] [id number], [place] [address]- 8008 Nov, [facility] [place] [facility] [address] [id number], [place] [address]- 9135 11 Nov, 2012 [facility] [place] [facility] [address] [id number], [place] [address]- 6309 10 Nov, 2012 [facility] [place] [facility] [address] [id number], [place] [address]- 2046 Nov, [facility] [place] [facility] [address] [id number] [place] [address]- 1500 Oct, [facility] [address] [id number] [place] [address]- 1626 Oct, [facility] [address] [id number] [place] [address] 2546 Oct, [facility] [address] [id number] [place] [address]- 3358 Oct, [facility] [address] [id number] [place] [address] 2545 Oct, [facility] [address] [id number] [place] [address]- 3277 Sep, [facility] [address] [id number] [place] [address]- 5335 Sep, [facility] [address] [id number] [place] [address]- 5656 Aug, [facility] [address] [id number] [place] [address]- 0550 Aug, [facility] [address] [id number] [place] [address]- 7972 Aug, [facility] [address] [id number] [place] [address]- 3132 Aug, [facility] [address] [id number] [place] [address] 254 Aug, [facility] [address] [id number] [place] [address]- 3127 Aug, [facility] [place] [facility] [address] [id number] [place] [address]- 2777 Aug, [facility] [place] [facility] [address] [id number] [place] [address]- 3433 Jul, [facility] [address] [id number] [place] [address]- 4905 Jul, [facility] [address] [id number] [place] [address]- 0824 June, [facility] [address] [id number] [place] [address]- 1521 June, [facility] [address] [id number] [place] [address]- 8242 June, [facility] [address] [id number] [place] [address]- 6629 June, [facility] [address] [id number] [place] [address]- 5150 June, [facility] [address] [id number] [place] [address]- 5487 June, [facility] [address] [id number] [place] [address]- 9838 June, [facility] [address] [id number] [place] [address]- 6987 June, [facility] [address] [id number] [place] [address]- 6149 June, [facility] [address] [id number] [place] [address]- 5086 June, [facility] [address] [id number] [place] [address]- 2370 June, [facility] [address] [id number] [place] [address]- 9681 May, [facility] [address] [id number] [place] [address]- 7231 May, [facility] [place] [facility] [address] [id number] [place] [address]- 1215 May, [facility] [address] [id number] [place] [address]- 4696 May, [facility] [address] [id number], [place] [address]- 1275 Apr, [facility] [address] [id number] [place] [address]- 0300 Apr, [facility] [address] [id number] [place] [address]- 9101 Apr, [facility] [address] [id number] [place] [address]- 8564 Mar, [facility] [address] [id number] [place] [address]- 4277 Mar, [facility] [address] [id number] [place] [address]- 0672 Feb, [facility] [address] [id number] [place] [address]- 1988 Feb, [facility] [address] [id number] [place] [address]- 5524 Feb, [facility] [address] [id number] [place] [address]- 3291 Feb, [facility] [address] [id number] [place] [address]- 0698 Feb, [facility] [address] [id number] [place] [address]- 2027 Feb, [facility] [address] [id number] [place] [address]- 0152 Feb, [facility] [address] [id number], [place] [address]- 9966 Jan, [facility] [address] [id number] [place] [address]- 1224 Jan, [facility] [address] [id number] [place] [address]- 1431 Jan, [facility] [address] [id number] [place] [address]- 1497 17 Jan, 2012 [facility] [place] [facility] [address] [id number] [place] [address]- 0117 17 Jan, 2012 [facility] [place] [facility] [address] [id number] [place] [address]- 7886 Jan, [facility] [place] [facility] [address] [id number] [place] [address] 2546 Jan, [facility] [place] [facility] [address] [id number] [place] [address]- 7036 Jan, [facility] [place] [facility] [address] [id number] [place] [address]- 8893 Jan, [facility] [place] [facility] [address] [id number] [place] [address]- 7756 Jan, [facility] [place] [facility] [address] [id number] [place] [address]- 7757 Jan, [facility] [place] [facility] [address] [id number] [place] [address]- 9271 Dec, [facility] [place] [facility] [address] [id number] [place] [address]- 0766 Dec, [facility] [place] [facility] [address] [id number] [place] [address]- 7704 Dec, [facility] [place] [facility] [address] [id number] [place] [address]- 5042 Dec, [facility] [place] [facility] [address] [id number] [place] [address]- 7182 Nov, [facility] [place] [facility] [address] [id number] [place] [address]- 3961 Nov, [facility] [place] [facility] [address] [id number] [place] [address]- 5916 Nov, [facility] [place] [facility] [address] [id number] [place] [address]- 4826 27 Oct, 2011 [facility] [place] [facility] [address] [id number] [place] [address]- 4623 24 Oct, 2011 [facility] [place] [facility] [address] [id number] [place] [address]- 1518 21 Oct, 2011 [facility] [place] [facility] [address] [id number] [place] [address]- 3196 10 Oct, 2011 [facility] [place] [facility] [address] [id number] [place] [address]- 0066 07 Oct, 2011 [facility] [place] [facility] [address] [id number] [place] [address]- 2397 04 Oct, 2011 [facility] [place] [facility] [address] [id number] [place] [address]- 5375 04 Oct, 2011 [facility] [place] [facility] [address] [id number] [place] [address]- 7128 29 Sep, 2011 [facility] [place] [facility] [address] [id number] [place] [address]- 9159 Sep, [facility] [place] [facility] [address] [id number] [place] [address]- 0351 Sep, [facility] [place] [facility] [address] [id number] [place] [address]- 9154 Sep, [facility] [place] [facility] [address] [id number] [place] [address]- 1155 Sep, [facility] [place] [facility] [address] [id number] [place] [address]- 9838 30 Aug, 2011 [facility] [place] [facility] [address] [id number] [place] [address]- 5892 26 Aug, 2011 [facility] [place] [facility] [address] [id number] [place] [address]- 4529 17 Aug, 2011 [facility] [place] [facility] [address] [id number] [place] [address]- 7055 16 Aug, 2011 [facility] [place] [facility] [address] [id number] [place] [address]- 9631 13 Aug, 2011 [facility] [place] [facility] [address] [id number] [place] [address]- 2601 Aug, [facility] [place] [facility] [address] [id number] [place] [address]- 9644 Aug, [facility] [place] [facility] [address] [id number] [place] [address]- 0189 Jul, [facility] [place] [facility] [address] [id number] [place] [address]- 6659 Jul, [facility] [place] [facility] [address] [id number] [place] [address]- 2287 Jul, [facility] [place] [facility] [address] [id number] [place] [address]- 6754 Jul, [facility] [place] [facility] [address] [id number] [place] [address]- 6812 Jul, [facility] [place] [facility] [address] [id number] [place] [address]- 8475 Jul, [facility] [place] [facility] [address] [id number] [place] [address]- 1826 Jul, [facility] [place] [facility] [address] [id number] [place] [address]- 9360 Jul, [facility] [place] [facility] [address] [id number] [place] [address]- 0939 Jul, [facility] [place] [facility] [address] [id number] [place] [address]- 1933 June, [facility] [place] [facility] [address] [id number] [place] [address]- 8106 June, [facility] [place] [facility] [address] [id number] [place] [address]- 0170 June, [facility] [place] [facility] [address] [id number] [place] [address]- 2247 June, [facility] [place] [facility] [address] [id number] [place] [address]- 2931 June, [facility] [place] [facility] [address] [id number] [place] [address]- 6313 June, [facility] [address] [id number] [place] [address]- 9416 June, [facility] [address] [id number] [place] [address]- 6143 June, [facility] [address] [id number] [place] [address]- 6453 May, [facility] [address] [id number] [place] [address]- 8562 May, [facility] [address] [id number] [place] [address]- 1479 May, [facility] [address] [id number] [place] [address]- 0646 May, [facility] [address] [id number] [place] [address]- 0449 May, [facility] [address] [id number] [place] [address]- 7637 May, [facility] [address] [id number] [place] [address]- 0847 May, [facility] [address] [id number] [place] [address]- 0304 Apr, [facility] [place] [facility] [address] [id number] [place] [address]- 0884 Apr, [facility] [place] [facility] [address] [id number] [place] [address]- 2401 Apr, [facility] [place] [facility] [address] [id number] [place] [address]- 0201 Apr, [facility] [place] [facility] [address] [id number] [place] [address]- 8301 Apr, [facility] [place] [facility] [address] [id number] [place] [address]- 2546 Apr, [facility] [address] [id number] [place] [address] Apr, [facility] [place] [facility] [address] [id number] [place] [address] Mar, [facility] [place] [facility] [address] [id number] [place] [address] Mar, [facility] [place] [facility] [address] [id number] [place] [address] 14 Mar, 2011 [facility] [place] [facility] [address] [id number] [place] [address] Mar, [facility] [place] [facility] [address] [id number] [place] [address] Mar, [facility] [address] [id number] [place] [address] Mar, [facility] [place] [facility] [address] [id number] [place] [address] Mar, [facility] [place] [facility] [address] [id number] [place] [address] Feb, [facility] [address] [facility] [id number] [place] [address] Feb[facility] [place] [facility] [address] [id number] [place] [address] Feb, [facility] [place] [facility] [address] [id number] [place] [address] Feb, [facility] [place] [facility] [address] [id number] [place] [address] Feb, [facility] [place] [facility] [address] [id number] [place] [address] Feb, [facility] [place] [facility] [address] [id number] [place] [address] Feb, [facility] [place] [facility] [address] [id number] [place] [address] Feb, [facility] [address] [id number] [place] [address] Feb, [facility] [place] [facility] [address] [id number] [place] [address] Feb, [facility] [address] [id number] [place] [address] Jan, [facility] [address] [id number] [place] [address] Jan, [facility] [place] [facility] [address] [id number] [place] [address] Jan, [facility] [address] [id number] [place] [address] Jan, [facility] [place] [facility] [address] [id number] [place] [address] Jan, [facility] [place] [facility] [address] [id number] [place] [address] Jan, [facility] [place] [facility] [address] [id number] [place] [address] Jan, [facility] [place] [facility] [address] [id number] [place] [address] Jan, [facility] [place] [facility] [address] [id number] [place] [address] Jan, [facility] [place] [facility] [address] [id number] [place] [address] Jan, [facility] [place] [facility] [address] [id number] [place] [address] Jan, [facility] [place] [facility] [address] [id number] [place] [address] Dec, [facility] [place] [facility] [address] [id number], [place] [address] 17 Dec, 2010 [facility] [place] [facility] [address] [id number] [place] [address] 17 Dec, 2010 [facility] [place] [facility] [address] [id number] [place] [address] 16 Dec, 2010 [facility] [place] [facility] [address] [id number] [place] [address] 14 Dec, 2010 [facility] [place] [facility] [address] [id number] [place] [address] 09 Dec, 2010 [facility] [place] [facility] [address] [id number] [place] [address] 08 Dec, 2010 [facility] [place] [facility] [address] [id number] [place] [address] Dec, [facility] [place] [facility] [address] [id number] [place] [address] Dec, [facility] [place] [facility] [address] [id number] [place] [address] Nov, [facility] [place] [facility] [address] [id number] [place] [address] Nov, [facility] [place] [facility] [address] [id number] [place] [address] Nov, [facility] [place] [facility] [address] [id number], [place] [address] 24 Nov, 2010 [facility] [place] [facility] [address] [id number], [place] [address] 24 Nov, 2010 [facility] [place] [facility] [address] [id number] [place] [address] 13 Nov, 2010 [facility] [place] [facility] [address] [id number], [place] [address] Aug, [facility] [place] [facility] [address] [id number] [place] [address] Feb, [facility] [place] [facility] [address] [address] 14 Jan, 2010 [facility] [address], [place] [address] Jan, [facility] [address], [place] [address] Jan, [facility] [id number], [place] [address] Jan, [facility] [id number], [place] [address] Jan, [facility] [id number] [place] [address] Dec, [facility] [id number], [place] [address] Dec, [facility] [id number] [place] [address] Dec, [facility] [address], [place] [address] Dec, [facility] [address], [place] [address] Nov, [facility] [address], [place] [address] Nov, [facility] [id number], [place] [address] Nov, IMMUNIZATIONS No Known Immunizations SOCIAL HISTORY Never Assessed REASON FOR VISIT Controlled Med Refill PLAN OF CARE VITAL SIGNS MEDICATIONS Medication Instructions Dosage Frequency Start Date End Date Duration Status Klonopin 1 MG Orally 3 times a day 1 tablet 8h 30 days Active Fentanyl 50 MCG/HR Transdermal 48 hrs 1 patch to skin Nov, 30 days Active RESULTS No Results PROCEDURES [...]
--- OUTSIDE RECORDS SUMMARY | 2018-01-13 20:39 | XMS REPORT ---
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
[2018-01-13 20:40] VITALS: BP 118/78
--- OUTSIDE RECORDS SUMMARY | 2018-01-13 20:40 | XMS REPORT ---
Author Author JUAN CARLOS SHEFFIELD Organization [facility] Address [address] 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 Active 996746134 Problem Hypertension I10 Active 90294090 Problem Arthritis M19.90 Active 9388164 Problem 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 Active 01466058 Problem Anxiety F41.9 Active 08983493 Problem Unspecified episodic mood disorder F39 Active 92381968 Problem Left hip pain M25.552 Active 18643999 ALLERGIES No Information ENCOUNTERS Encounter Location Date Diagnosis [facility] [address] [id number] [address] Nov, [facility] [id number] [address] Nov, Arthritis M19.90 and Unspecified episodic mood disorder F39 [facility] [address] [id number], [place] [address] Oct, [facility] [address] [address] Oct, Chronic hepatitis C without hepatic coma B18.2 and Encounter for immunization Z23 [facility] [id number] [place] [address] 32939- 2000 Oct, [facility] [id number] [place] [address] 76445- 7013 Oct, Arthritis M19.90 and Unspecified episodic mood disorder F39 [facility] [id number] [place] [address] 50046- 3078 Sep, Chronic hepatitis C without hepatic coma B18.2 [facility] [id number] [place] [address] 95647- 2591 Sep, Gastroesophageal reflux disease, esophagitis presence not specified K21.9 and Other chronic pain G89.29 [facility] [id number] [place] [address] 58352- 3017 Sep, [facility] [id number] [place] [address] 74773- 5461 Sep, [facility] [id number] [place] [address] 42299- 6222 Sep, Chronic hepatitis C without hepatic coma B18.2 [facility] [id number] [place] [address] 56188- 2821 Sep, 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 [facility] [address] [address] 44[address] Sep, Arthritis M19.90 [facility] [id number] [place] [address] 96277- 7652 Sep, [facility] [id number] [place] [address] 67663- 4357 Sep, Unspecified episodic mood disorder F39 [facility] [address] [address] 18[address] Aug, [facility] [id number] [place] [address] [id number] Aug, [facility] [id number] [place] [address] 45668- 0231 Aug, Arthritis M19.90 [facility] [id number] [place] [address] 44051- 8341 Aug, [facility] [id number] [place] [address] 05006- 6509 Aug, Obesity (BMI 30.0-34.9) E66.9 ; Unspecified episodic mood disorder F39 and Hypertension I10 [facility] [id number] [place] [address] 47909- 2134 Aug, Unspecified episodic mood disorder F39 [facility] [id number] [place] [address] 19484- 1791 Aug, [facility] [id number] [place] [address] 85587- 0181 Jul, Unspecified episodic mood disorder F39 [facility] [id number] [place] [address] 17921- 6306 Jul, [facility] [id number] [place] [address] 54332- 2433 Jul, Arthritis M19.90 [facility] [id number] [place] [address] 97726- 0114 Jul, Left hip pain M25.552 ; Hypertension I10 ; Other obesity due to excess calories E66.09 and Body mass index (BMI) of 34.0-34.9 in adult Z68.34 [facility] [id number] [place] [address] 81504- 6572 Jul, Unspecified episodic mood disorder F39 [facility] [id number] [place] [address] 74285- 5011 June, Gastroesophageal reflux disease, esophagitis presence not specified K21.9 [facility] [id number] [place] [address] 78012- 1174 June, [facility] [id number] [place] [address] 25276- 5761 June, [facility] [id number] [place] [address] 60928- 7756 June, Arthritis M19.90 [facility] [id number] [place] [address] 52781- 9642 June, [facility] [id number] [place] [address] 99406- 7681 June, [facility] [id number] [place] [address] 66824- 6109 June, Unspecified episodic mood disorder F39 [facility] [id number] [place] [address] 37948- 5742 May, Unspecified episodic mood disorder F39 [facility] [id number] [place] [address] 84495- 6981 May, [facility] [id number] [place] [address] 71392- 0409 May, Arthritis M19.90 [facility] [id number] [place] [address] 53500 -7430 May, Dysuria R30.0 ; Abscess L02.91 and Acute cystitis without hematuria N30.00 [facility] [id number] [place] [address] 40003- 0519 May, 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 ; Unspecified episodic mood disorder F39 ; Combined drug dependence excluding opioids, 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 ; Anxiety F41.9 and Other psychoactive substance dependence, 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 [facility] [id number] [place] [address] 11443- 9677 May, [facility] [id number] [place] [address] 21983- 1900 May, 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 ; Unspecified episodic mood disorder F39 ; Combined drug dependence excluding opioids, 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 and 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 [facility] [id number] [place] [address] 99455- 6302 Apr, [facility] [id number] [place] [address] 19859- 9064 Apr, Arthritis M19.90 and Unspecified episodic mood disorder F39 [facility] [id number] [place] [address] 95113- 9723 Apr, Unspecified episodic mood disorder F39 [facility] [id number] [place] [address] 26233- 1561 13 Apr, 2017 [facility] [address] 92224- 2703 Apr, [facility] [id number] [place] [address] 13314- 8202 Apr, Unspecified episodic mood disorder F39 ; Combined drug dependence excluding opioids, 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 ; Anxiety F41.9 ; Other psychoactive substance dependence, 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 and 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 [facility] [address] 58542- 8415 Mar, Unspecified episodic mood disorder F39 [facility] [id number] [place] [address] 41346- 9358 Mar, Gastroesophageal reflux disease, esophagitis presence not specified K21.9 [facility] [id number] [place] [address] 46174- 0857 Mar, Arthritis M19.90 and Unspecified episodic mood disorder F39 [facility] [address] 81171- 9479 Feb, [facility] [address] 70600- 6900 Feb, [facility] [address] 13482- 6834 Feb, [facility] [id number] [place] [address] 90258- 1448 Feb, Arthritis M19.90 [facility] [address] 25995- 8444 Feb, Non-pressure chronic ulcer of right calf, 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 ; Unspecified episodic mood disorder F39 and Left hip pain M25.552 [facility] [address] 85964- 3102 Feb, [facility] [id number] [place] [address] 07493- 4159 Feb, [facility] [address] [place] [address]- 0062 Jan, Arthritis M19.90 [place] [address] 82898- 8206 Jan, Left hip pain M25.552 and Non-pressure chronic ulcer of right calf, 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 [facility] [id number] [place] [address] 36093- 9420 Jan, Chronic hepatitis C without hepatic coma B18.2 [place] [id number] [place] [address] 71442- 5473 Jan, Encounter for immunization Z23 ; Venous insufficiency ( chronic) (peripheral) I87.2 ; Non-pressure chronic ulcer of unspecified calf limited to breakdown of skin L97.201 and Gastroesophageal reflux disease, esophagitis presence not specified K21.9 [place] [place] [id number] [place] [address] 17298- 9511 Jan, [place] [id number] [place] [address] 94373- 8908 Jan, Chronic hepatitis C without hepatic coma B18.2 and Encounter for immunization Z23 [place] [place] [id number] [place] [address] 28904- 6734 Jan, Arthritis M19.90 [place] [id number] [place] [address] 76186- 3727 Jan, [place] [id number] [place] [address] 88826- 7935 Dec, [place] [id number] [place] [address] 61864- 6099 Dec, Unspecified episodic mood disorder F39 [place] [id number] [place] [address] 16850- 2290 Dec, Arthritis M19.90 [facility] [id number] [place] [address] 39215- 0330 Dec, Arthritis M19.90 [facility] [address], [place] [address]- 1519 Nov, [facility] [id number] [place] [address] 80386- 9370 Nov, [facility] [id number] [place] [address] 77621- 6634 Nov, Other psychoactive substance dependence, 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 [id number] [place] [address] 69832 -6805 Oct, Partial thickness burn of abdomen, initial encounter T21.22XA [facility] [id number] [place] [address] 29513- 3707 Oct, [facility] [id number] [place] [address] 38451- 6200 Sep, Arthritis M19.90 [facility] [id number] [place] [address] 10932- 4368 Sep, [facility] [id number] [place] [address] 82190- 2207 Sep, [facility] [id number] [place] [address] 62747- 3048 Sep, Unspecified episodic mood disorder F39 ; Chronic hepatitis C without hepatic coma B18.2 and Left hip pain M25.552 [facility] [id number] [place] [address] 30795- 8602 Sep, Arthritis M19.90 and Left hip pain M25.552 [facility] [id number] [place] [address] 84764- 8920 Aug, [facility] [id number] [address]- 3045 Aug, [facility] [id number] [place] [address] 65237- 8064 Aug, Chronic hepatitis C without hepatic coma B18.2 [facility] [id number] [address]- 2129 Aug, [facility] [id number] [place] [address] 61235- 4059 Aug, Chronic hepatitis C without hepatic coma B18.2 [facility] [id number] [place] [address] 86667- 0749 Aug, 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, 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 [facility] [id number] [address]- 6335 Aug, [facility] [id number] [place] [address] 98073- 7353 Aug, Chronic hepatitis C without hepatic coma B18.2 and Hypertension I10 [facility] [address], [place] [address]- 1758 Jul, [facility] [id number] [address]- 3940 June, [facility] [address], [place] [address]- 1938 Apr, Fibromyalgia M79.7 ; Left hip pain M25.552 and Decubitus ulcer of sacral region, stage 1 L89.151 [facility] [address], [place] [address]- 0075 Apr, [facility] [id number] [place] [address] 97929- 8223 Apr, [facility] [address], [place] [address]- 3359 Feb, [facility] [id number] [place] [address] 30414- 5435 Dec, Anxiety F41.9 ; Combined drug dependence excluding opioids, 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 and Unspecified episodic mood disorder F39 [facility] [id number] [place] [address] 81667- 0850 Dec, [facility] [id number] [place] [address] 52259- 2138 Nov, [facility] [id number] [place] [address] 90639- 8878 Nov, [facility] [id number] [place] [address] 47889- 9100 Nov, 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 and Anxiety F41.9 [facility] [id number] [place] [address] 99250- 1282 Oct, [facility] [address] 29636 -1686 14 Oct, 2015 Open wound of left thigh, initial encounter S71.102A [facility] [id number] [place] [address] 64609- 5141 Oct, [facility] [id number] [place] [address] 14902- 2743 Sep, Unspecified episodic mood disorder F39 ; Other disorder of impulse control 312.39 ; Combined drug dependence excluding opioids, 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 and Anxiety F41.9 [facility] [id number] [place] [address] 91984- 9568 Sep, Other disorder of impulse control 312.39 ; Combined drug dependence excluding opioids, 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 ; Anxiety F41.9 and Unspecified episodic mood disorder F39 [facility] [id number] [place] [address] 15201- 9885 Sep, Other chronic pain G89.29 [facility] [id number] [place] [address] 73650- 4520 Sep, [facility] [address], [place] [address]- 7323 Sep, [facility] [id number] [place] [address] 45112- 9167 Aug, [facility] [address], [place] [address]- 4003 Aug, [facility] [id number] [place] [address] 66708- 7525 Aug, [facility] [id number] [place] [address] 76414- 9321 Jul, [facility] [id number] [place] [address] 25217- 8376 Jul, [facility] [id number] [place] [address] 03728- 9583 Jul, [facility] [id number] [place] [address] 07108- 4458 Jul, Arthritis M19.90 ; Chronic hepatitis C without hepatic coma B18.2 and Left hip pain M25.552 [facility] [id number] [place] [address] 61516- 2296 Jul, Left knee pain M25.562 [facility] [id number] [place] [address] 93705- 7947 Jul, Combined drug dependence excluding opioids, 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 ; Anxiety F41.9 ; Other disorder of impulse control 312.39 and Unspecified episodic mood disorder F39 [facility] [address], [place] [address]- 7610 Jul, Left knee pain M25.562 [facility] [id number] [place] [address] 30254- 8250 08 Jul, 2015 Left knee pain M25.562 and Left hip pain M25.552 [facility] [id number] [place] [address] 36183- 8293 Jul, [facility] [id number] [place] [address] 70791- 2777 June, [facility] [id number] [place] [address] 26602- 2514 June, Combinations of drug dependence excluding opioid type drug, 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 ; Other disorder of impulse control 312.39 ; Unspecified episodic mood disorder F39 and Anxiety F41.9 [facility] [id number] [place] [address] 52920- 7479 June, Other fatigue R53.83 ; Headache R51 and Left knee pain M25.562 [place] [id number] [place] [address] 07679- 3445 June, Unspecified episodic mood disorder F39 ; Combinations of drug dependence excluding opioid type drug, 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 ; Other disorder of impulse control 312.39 and Anxiety F41.9 [place] [id number] [place] [address] 72945- 8554 June, Anxiety F41.9 [place] [id number] [place] [address] 73532- 4187 June, Pain in left knee M25.562 [place] [place] [id number] [place] [address] 57612- 4744 June, Anxiety F41.9 and Combinations of drug dependence excluding opioid type drug, 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 [place] [id number] [place] [address] 97557- 3366 June, Unspecified episodic mood disorder 296.90 ; Combinations of drug dependence excluding opioid type drug, 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 and Other disorder of impulse control 312.39 [place] [id number] [place] [address] 93706- 2609 June, Anxiety F41.9 and Unspecified episodic mood disorder 296.90 [place] [id number] [place] [address] 24243- 9386 May, Arthritis M19.90 [facility] [address] [address]- 3908 May, Arthritis M19.90 [facility] [id number] [place] [address] 23985- 3517 May, Anxiety F41.9 ; Combinations of drug dependence excluding opioid type drug, 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 and Other disorder of impulse control 312.39 [facility] [id number] [place] [address] 05668- 6783 May, Left knee pain M25.562 [facility] [id number] [place] [address] 10445- 8220 May, Arthritis M19.90 [facility] [id number] [place] [address] 87630- 5538 May, [facility] [id number] [place] [address] 15806- 0856 May, Anxiety F41.9 ; Unspecified episodic mood disorder 296.90 ; Combinations of drug dependence excluding opioid type drug, 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 and Other disorder of impulse control 312.39 [facility] [id number] [place] [address] 93291- 2459 May, Left knee pain M25.562 [facility] [id number] [place] [address] 63520- 5189 May, Left knee pain M25.562 ; Combinations of drug dependence excluding opioid type drug, 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 ; Other disorder of impulse control 312.39 ; Fibromyalgia M79.7 ; Hypertension I10 ; Unspecified episodic mood disorder 296.90 and Left hip pain M25.552 [facility] [id number] [place] [address] 39418- 1810 May, Unspecified episodic mood disorder 296.90 ; Other disorder of impulse control 312.39 ; Combinations of drug dependence excluding opioid type drug, 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 and Anxiety F41.9 [place] [id number] [place] [address] 76280- 8810 May, Left knee pain M25.562 ; Combinations of drug dependence excluding opioid type drug, 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 ; Other disorder of impulse control 312.39 ; Fibromyalgia M79.7 ; Hypertension I10 ; Unspecified episodic mood disorder 296.90 and Left hip pain M25.552 [place] [id number] [place] [address] 27965- 2662 May, Anxiety F41.9 ; Unspecified episodic mood disorder 296.90 ; Other disorder of impulse control 312.39 and Combinations of drug dependence excluding opioid type drug, 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 [place] [id number] [place] [address] 88779- 3883 Apr, 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 and 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, implants and grafts, initial encounter T84.82XA [place] [id number] [place] [address] 79014- 5333 Apr, Anxiety F41.9 ; Unspecified episodic mood disorder 296.90 ; Combinations of drug dependence excluding opioid type drug, 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 and Other disorder of impulse control 312.39 [facility] [id number] [place] [address] 62270- 0610 Apr, Arthritis M19.90 [facility] [id number] [place] [address] 63888- 4259 Apr, Anxiety F41.9 ; Unspecified episodic mood disorder 296.90 ; Combinations of drug dependence excluding opioid type drug, 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 and Other disorder of impulse control 312.39 [facility] [id number] [place] [address] 91206- 9880 Apr, Arthritis M19.90 [facility] [id number] [place] [address] 81774- 5181 Apr, [facility] [id number] [place] [address] 39711- 9621 Apr, [facility] [address], [place] [address] 14 Apr, 2015 Unspecified episodic mood disorder 296.90 ; Combinations of drug dependence excluding opioid type drug, 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 ; Other disorder of impulse control 312.39 and Anxiety F41.9 [facility] [address], [place] [address] 11 Apr, 2015 Left knee pain M25.562 [facility] [id number] [place] [address] 91924- 6666 11 Apr, 2015 [facility] [id number] [place] [address] 23307- 2921 29 Mar, 2015 Unspecified episodic mood disorder 296.90 ; Anxiety F41.9 ; Other disorder of impulse control 312.39 and Combinations of drug dependence excluding opioid type drug, 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 [facility] [id number] [place] [address] 63046- 7537 Mar, Hyperpigmentation L81.9 [facility] [id number] [place] [address] 85378- 7037 Mar, Arthritis M19.90 and Anxiety F41.9 [facility] [id number] [place] [address] 28362- 2290 Mar, Unspecified episodic mood disorder F39 ; Combined drug dependence excluding opioids, 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 ; 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 and Anxiety F41.9 [facility] [address], [place] [address] 8527 12 Mar, 2015 Well woman exam Z01.419 ; Other fatigue R53.83 ; Hot flashes N95.1 ; Depression, unspecified depression type F32.9 and Body mass index (BMI) of 23.0-23.9 in adult Z68.23 [facility] [id number] [place] [address] 25991- 8856 11 Mar, 2015 Unspecified episodic mood disorder 296.90 ; Other disorder of impulse control 312.39 and Anxiety F41.9 [facility] [address] 94331- 7665 11 Mar, 2015 Well woman exam Z01.419 [...] of breast Z12.39 and Limited mobility Z74.09 [facility] [address] 29913- 0169 Mar, [facility] [address] 41352- 9817 Mar, [facility] [address] 47474- 4167 Mar, [facility] [address] 99214- 1073 Mar, Other specified complication of internal orthopedic prosthetic devices, implants and grafts, initial encounter T84.89XA ; Fibromyalgia M79.7 ; Hypertension I10 ; Anemia D64.9 ; Insomnia G47.00 ; Anxiety F41.9 ; Arthritis M19.90 and Migraine G43.909 [facility] [address] 00873- 1325 Mar, [facility] [address] 25954- 9809 Feb, [facility] [address] 61833- 9784 Feb, Arthritis M19.90 and Anxiety F41.9 [facility] [address], [place] [address]- 0353 Feb, [facility] [id number] [place] [address] 41089- 4801 Feb, [facility] [id number] [place] [address] 85525- 3041 Feb, [facility] [id number] [place] [address] 46389- 2392 Feb, [facility] [id number] [place] [address] 88530- 4469 Feb, Anxiety F41.9 [facility] [id number] [place] [address] 70545- 8778 Feb, [facility] [id number] [place] [address] 22116- 9453 Feb, [facility] [id number] [place] [address] 92663- 7654 Feb, 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 and Fibromyalgia M79.7 [facility] [address], [place] [address]- 9384 Feb, [facility] [address], [place] [address]- 5710 Jan, [facility] [address], [place] [address] 2548 Jan, [facility] [address], [place] [address]- 4226 Jan, [facility] [id number] [place] [address] 59134- 6318 24 Jan, 2015 [facility] [address], [place] [address]- 1015 16 Jan, 2015 [facility] [id number] [address]- 9733 08 Jan, 2015 [facility] [id number] [place] [address] 24688- 5543 Jan, [facility] [address] 4757 Jan, [facility] [id number] [place] [address] 39140- 1622 Dec, [facility] [id number] [place] [address] 52759- 2415 Dec, Left knee pain M25.562 [facility] [id number] [place] [address] 56874- 6717 Dec, Left knee pain M25.562 [facility] [id number] [place] [address] 51163- 5573 16 Dec, 2014 Fibromyalgia M79.7 ; Hypertension I10 and Arthritis M19.90 [facility] [address], [place] [address]- 8344 Dec, [facility] [id number] [place] [address] 51848- 8731 Dec, [facility] [address], [place] [address]- 9085 Dec, [facility] [address], [place] [address]- 1720 Dec, [facility] [address], [place] [address]- 9099 Nov, [facility] [id number] [place] [address] 44766- 1623 Nov, [facility] [address], [place] [address]- 5257 Nov, [facility] [id number] [place] [address] 89956- 3752 Nov, Hypertension I10 [facility] [address] [id number] [place] [address]- 0083 23 Oct, 2014 [facility] [address] [id number] [place] [address]- 8036 17 Oct, 2014 [facility] [address] [id number] [place] [address] 2546 Oct, 2014 [facility] [address] [id number], [place] [address] 2540 Oct, 2014 [facility] [address] [id number] [place] [address]- 2301 Oct, [facility] [address] [id number], [place] [address]- 9405 Sep, [facility] [address] [facility] [id number] [place] [address]- 9964 Sep, [facility] [address] [facility] [id number], [place] [address]- 0295 Sep, Hip pain associated with recalled total hip arthroplasty hardware 996.77 [facility] [address] [facility] [id number], [place] [address]- 0102 Sep, [facility] [address] [facility] [id number], [place] [address]- 0515 Sep, [facility] [address] [facility] [id number], [place] [address]- 5888 Sep, [facility] [address] [id number], [place] [address]- 0018 Aug, [facility] [address] [facility] [id number], [place] [address]- 7519 Jul, [facility] [address] [facility] [id number], [place] [address]- 5749 June, [facility] [address] [facility] [id number], [place] [address]- 7235 June, [facility] [place] [facility] [address] [id number] [place] [address]- 1996 June, [facility] [place] [facility] [address] [id number] [place] [address]- 8347 June, [facility] [place] [facility] [address] [id number] [place] [address]- 5236 June, [facility] [place] [facility] [address] [id number] [place] [address]- 6086 June, [facility] [place] [facility] [address] [id number] [place] [address]- 3619 30 May, 2014 [facility] [place] [facility] [address] [id number] [place] [address]- 7344 May, [facility] [place] [facility] [address] [id number] [place] [address]- 2915 May, [facility] [place] [facility] [address] [id number] [place] [address]- 6436 Apr, [facility] [place] [facility] [address] [id number] [place] [address]- 7404 30 Apr, 2014 [facility] [place] [facility] [address] [id number] [place] [address]- 1670 Apr, [facility] [place] [facility] [address] [id number] [place] [address]- 1349 19 Apr, 2014 [facility] [place] [facility] [address] [id number] [place] [address]- 6569 Apr, [facility] [place] [facility] [address] [id number] [place] [address]- 8452 Apr, [facility] [place] [facility] [address] [id number] [place] [address]- 4863 Apr, [facility] [place] [facility] [address] [id number] [place] [address]- 1496 Apr, [facility] [place] [facility] [address] [id number] [place] [address]- 6937 Apr, [facility] [place] [facility] [address] [id number] [place] [address]- 7994 Apr, [facility] [place] [facility] [address] [id number] [place] [address]- 7716 Apr, [facility] [place] [facility] [address] [facility] [id number] [place] [address]- 9920 Mar, [facility] [place] [facility] [address] [id number] [place] [address]- 1036 Mar, [facility] [place] [facility] [address] [id number] [place] [address]- 3486 Mar, [facility] [place] [facility] [address] [id number] [place] [address]- 6066 Mar, [facility] [place] [facility] [address] [id number] [place] [address]- 9716 Mar, [facility] [place] [facility] [address] [id number] [place] [address]- 0984 Mar, [facility] [place] [facility] [address] [id number] [place] [address]- 1134 Feb, [facility] [place] [facility] [address] [facility] [id number] [place] [address]- 3234 Feb, [facility] [place] [facility] [address] [id number] [place] [address]- 8209 Feb, [facility] [place] [facility] [address] [id number] [place] [address]- 3293 Feb, [facility] [place] [facility] [address] [id number] [place] [address]- 4083 Jan, [facility] [place] [facility] [address] [id number] [place] [address]- 1152 Jan, [facility] [place] [facility] [address] [facility] [id number] [place] [address]- 5726 Jan, [facility] [place] [facility] [address] [id number] [place] [address]- 1439 Jan, [facility] [place] [facility] [address] [id number] [place] [address]- 9532 Dec, [facility] [place] [facility] [address] [id number] [place] [address]- 4342 Dec, [facility] [place] [facility] [address] [id number] [place] [address]- 3008 Dec, [facility] [place] [facility] [address] [id number] [place] [address]- 4763 Dec, [facility] [place] [facility] [address] [id number] [place] [address]- 8561 Dec, [facility] [place] [facility] [address] [id number] [place] [address]- 9206 Dec, [facility] [place] [facility] [address] [id number] [place] [address]- 5671 Dec, [facility] [place] [facility] [address] [id number] [place] [address]- 2748 Dec, [facility] [place] [facility] [address] [id number] [place] [address]- 5786 Dec, [facility] [place] [facility] [address] [id number] [place] [address]- 4895 Dec, [facility] [place] [facility] [address] [id number] [place] [address]- 5170 Dec, [facility] [place] [facility] [address] [id number] [place] [address]- 5398 Nov, [facility] [place] [facility] [address] [id number] [place] [address]- 6557 Nov, [facility] [place] [facility] [address] [id number] [place] [address]- 1469 Nov, [facility] [place] [facility] [address] [id number] [place] [address]- 8298 Nov, [facility] [place] [facility] [address] [id number] [place] [address]- 2783 17 Nov, 2013 [facility] [place] [facility] [address] [id number] [place] [address]- 1458 15 Nov, 2013 [facility] [place] [facility] [address] [id number] [place] [address]- 1739 15 Nov, 2013 [facility] [place] [facility] [address] [id number] [place] [address]- 6540 15 Nov, 2013 [facility] [place] [facility] [address] [id number] [place] [address]- 1687 15 Nov, 2013 [facility] [place] [facility] [address] [id number] [place] [address]- 6255 14 Nov, 2013 [facility] [place] [facility] [address] [id number] [place] [address]- 5357 14 Nov, 2013 [facility] [place] [facility] [address] [id number] [place] [address]- 8756 14 Nov, 2013 [facility] [place] [facility] [address] [id number] [place] [address]- 9696 14 Nov, 2013 [facility] [place] [facility] [address] [id number], [place] [address]- 1796 13 Nov, 2013 [facility] [place] [facility] [address] [id number], [place] [address]- 0449 13 Nov, 2013 [facility] [place] [facility] [address] [id number], [place] [address]- 0858 11 Nov, 2013 [facility] [place] [facility] [address] [id number] [place] [address]- 1540 11 Nov, 2013 [facility] [place] [facility] [address] [id number], [place] [address]- 2098 07 Nov, 2013 [facility] [place] [facility] [address] [id number] [place] [address]- 2228 07 Nov, 2013 [facility] [place] [facility] [address] [id number] [place] [address]- 3366 07 Nov, 2013 [facility] [place] [facility] [address] [id number] [place] [address]- 5942 07 Nov, 2013 [facility] [place] [facility] [address] [id number] [place] [address]- 1095 30 Sep, 2013 [facility] [place] [facility] [address] [id number] [place] [address]- 2546 30 Sep, 2013 [facility] [place] [facility] [address] [id number] [place] [address]- 7951 26 Sep, 2013 [facility] [place] [facility] [address] [id number] [place] [address]- 4500 26 Sep, 2013 [facility] [place] [facility] [address] [id number] [place] [address]- 7442 22 Sep, 2013 [facility] [place] [facility] [address] [id number] [place] [address]- 5838 22 Sep, 2013 [facility] [place] [facility] [address] [id number] [place] [address]- 4029 18 Sep, 2013 [facility] [place] [facility] [address] [id number] [place] [address]- 7856 18 Sep, 2013 [facility] [place] [facility] [address] [id number] [place] [address]- 2978 18 Sep, 2013 [facility] [place] [facility] [address] [id number] [place] [address]- 2541 18 Sep, 2013 [facility] [place] [facility] [address] [id number] [place] [address]- 254 12 Sep, 2013 [facility] [place] [facility] [address] [id number] [place] [address] 2543 12 Sep, 2013 [facility] [place] [facility] [address] [id number] [place] [address]- 254 03 Sep, 2013 [facility] [place] [facility] [address] [id number] [place] [address]- 2547 03 Sep, 2013 [facility] [place] [facility] [address] [id number] [place] [address]- 2001 Sep, [facility] [place] [facility] [address] [id number] [place] [address]- 2083 Sep, [facility] [place] [facility] [address] [id number] [place] [address]- 7943 Sep, [facility] [place] [facility] [address] [id number] [place] [address]- 0045 Sep, [facility] [place] [facility] [address] [id number] [place] [address]- 7454 Sep, [facility] [place] [facility] [address] [id number] [place] [address]- 5818 Sep, [facility] [place] [facility] [address] [id number] [place] [address]- 6248 Sep, [facility] [place] [facility] [address] [id number] [place] [address]- 8446 Sep, [facility] [place] [facility] [address] [id number] [place] [address]- 6093 Sep, [facility] [place] [facility] [address] [id number] [place] [address]- 8556 Sep, [facility] [place] [facility] [address] [id number] [place] [address]- 3507 Sep, [facility] [place] [facility] [address] [id number] [place] [address]- 7936 Sep, [facility] [place] [facility] [address] [id number] [place] [address]- 2244 Sep, [facility] [place] [facility] [address] [id number] [place] [address]- 1171 Sep, [facility] [place] [facility] [address] [id number] [place] [address]- 6910 Sep, [facility] [place] [facility] [address] [id number] [place] [address]- 9434 Sep, [facility] [place] [facility] [address] [id number] [place] [address]- 3392 Sep, [facility] [place] [facility] [address] [id number] [place] [address]- 1525 Sep, [facility] [place] [facility] [address] [id number] [place] 3300 Aug, [facility] [place] [facility] [address] [id number] [place] [address]- 7401 Aug, [facility] [place] [facility] [address] [id number] [place] [address]- 1415 Aug, [facility] [place] [facility] [address] [id number] [place] [address]- 0994 Aug, [facility] [place] [facility] [address] [id number] [place] [address]- 7674 Aug, [facility] [place] [facility] [address] [id number] [place] [address]- 0281 Aug, [facility] [place] [facility] [address] [id number] [place] [address]- 4574 Jul, [facility] [place] [facility] [address] [id number] [place] [address]- 4162 Jul, [facility] [place] [facility] [address] [id number] [place] [address]- 3602 Jul, [facility] [place] [facility] [address] [id number] [place] [address]- 6287 Jul, [facility] [place] [facility] [address] [id number] [place] [address]- 7267 June, [facility] [place] [facility] [address] [id number] [place] [address]- 2805 June, [facility] [place] [facility] [address] [id number] [place] [address]- 3120 June, [facility] [place] [facility] [address] [id number] [place] [address]- 7859 June, [facility] [address] [id number] [place] [address]- 6722 June, [facility] [address] [id number] [place] [address]- 6076 June, [facility] [address] [id number] [place] [address]- 1222 June, [facility] [address] [id number] [place] [address]- 7890 May, [facility] [address] [id number] [place] [address]- 5[address] May, [facility] [address] [id number] [place] [address] May, [facility] [address] [id number] [place] [address] May, [facility] [address] [id number] [place] [address] May, [facility] [address] [id number] [place] [address] May, [facility] [address] [id number] [place] [address] 31 Apr, 2013 [facility] [place] [facility] [address] [id number] [place] [address] 31 Apr, 2013 [facility] [place] [facility] [address] [id number] [place] [address] 28 Apr, 2013 [facility] [place] [facility] [address] [id number] [place] [address] 28 Apr, 2013 [facility] [place] [facility] [address] [id number] [place] [address] 14 Apr, 2013 [facility] [place] [facility] [address] [id number] [place] [address] 14 Apr, 2013 [facility] [place] [facility] [address] [id number] [place] [address] 12 Apr, 2013 [facility] [place] [facility] [address] [id number] [place] [address] 12 Apr, 2013 [facility] [place] [facility] [address] [id number] [place] [address] Apr, [facility] [place] [facility] [address] [id number] [place] [address] Apr, [facility] [place] [facility] [address] [id number] [place] [address] Apr, [facility] [place] [facility] [address] [id number] [place] [address] Apr, [facility] [place] [facility] [address] [id number] [place] [address] Apr, [facility] [place] [facility] [address] [id number] [place] [address] Apr, [facility] [place] [facility] [address] [id number] [place] [address] Mar, [facility] [place] [facility] [address] [id number] [place] [address] Mar, [facility] [place] [facility] [address] [id number] [place] [address] Mar, [facility] [place] [facility] [address] [id number] [place] [address] Feb, [facility] [place] [facility] [address] [id number] [place] [address] Feb, [facility] [place] [facility] [address] [id number] [place] [address] Feb, [facility] [place] [facility] [address] [id number] [place] [address] Feb, [facility] [place] [facility] [address] [id number] [place] [address] Feb, [facility] [address] [id number] [place] [address] Feb, [facility] [address] [id number] [place] [address] Feb, [facility] [address] [id number] [place] [address] Feb, [facility] [address] [id number] [place] [address] Feb, [facility] [address] [id number] [place] [address] Feb, [facility] [address] [id number] [place] [address] Jan, [facility] [address] [id number] [place] [address] Jan, [facility] [address] [id number] [place] [address] Jan, [facility] [address] [id number] [place] [address] Jan, [facility] [address] [id number] [place] [address] Jan, [facility] [address] [id number] [place] [address] Jan, [facility] [place] [facility] [address] [id number] [place] [address] Jan, [facility] [address] [id number] [place] [address] Jan, [facility] [place] [facility] [address] [id number] [place] [address] Jan, [facility] [address] [id number] [place] [address] Jan, [facility] [address] [id number] [place] [address] 17 Jan, 2013 [facility] [place] [facility] [address] [id number] [place] [address] 17 Jan, 2013 [facility] [place] [facility] [address] [id number] [place] [address]- [address] 16 Jan, 2013 [facility] [place] [facility] [address] [id number] [place] [address] Jan, [facility] [place] [facility] [address] [id number] [place] [address] Jan, [facility] [place] [facility] [address] [id number] [place] [address]- [address] Jan, [facility] [place] [facility] [address] [id number] [place] [address] Jan, [facility] [place] [facility] [address] [id number] [place] [address] Jan, [facility] [place] [facility] [address] [address] [id number] [place] [address] Jan, [facility] [place] [facility] [address] [id number] [place] [address] Jan, [facility] [place] [facility] [address] [id number] [place] [address] 1753 Jan, [facility] [place] [facility] [address] [id number] [place] [address] 8164 Dec, [facility] [place] [facility] [address] [id number] [place] [address] 9794 Dec, [facility] [place] [facility] [address] [id number] [place] [address] 2679 Dec, [facility] [place] [facility] [address] [id number] [place] [address] 7704 Dec, [facility] [place] [facility] [address] [id number] [place] [address] 8111 Dec, [facility] [place] [facility] [address] [id number] [place] [address] 2820 Dec, [facility] [place] [facility] [address] [id number], [place] [address] 9697 Dec, [facility] [place] [facility] [address] [id number] [place] [address] 9489 Dec, [facility] [place] [facility] [address] [id number], [place] [address] 6[address] Dec, [facility] [place] [facility] [address] [id number] [place] [address]- 6853 Dec, [facility] [place] [facility] [address] [id number], [place] [address] 45[address] Nov, [facility] [place] [facility] [address] [id number], [place] [address] 0[address] Nov, [facility] [place] [facility] [address] [id number], [place] [address] 1407 Nov, [facility] [place] [facility] [address] [id number], [place] [address] 3[address] Nov, [facility] [place] [facility] [address] [id number], [place] [address] 7844 Nov, [facility] [place] [facility] [address] [id number], [place] [address] 8716 Nov, [facility] [place] [facility] [address] [id number], [place] [address] 8430 Nov, [facility] [place] [facility] [address] [id number], [place] [address] 8912 11 Nov, 2012 [facility] [place] [facility] [address] [id number], [place] [address] 1183 10 Nov, 2012 [facility] [place] [facility] [address] [id number] [address] Nov, [facility] [place] [facility] [address] [id number] [place] [address] 1926 Oct, 2012 [facility] [place] [facility] [address] [id number] [place] [address]- 8896 Oct, [facility] [place] [facility] [address] [id number] [place] [address] 2546 Oct, [facility] [place] [facility] [address] [id number] [place] [address]- 5906 Oct, [facility] [place] [facility] [address] [id number] [place] [address] 2541 Oct, [facility] [place] [facility] [address] [id number] [place] [address]- 4937 Sep, [facility] [place] [facility] [address] [id number] [place] [address]- 6508 Sep, [facility] [address] [id number] [place] [address]- 2958 Aug, [facility] [address] [id number] [place] [address]- 9556 Aug, [facility] [place] [facility] [address] [id number] [place] [address]- 7390 Aug, [facility] [address] [id number] [place] [address]- 0183 Aug, [facility] [place] [facility] [address] [id number] [place] [address] 2546 Aug, [facility] [place] [facility] [address] [id number] [place] [address]- 0723 Aug, [facility] [place] [facility] [address] [id number] [place] [address]- 9159 Aug, [facility] [place] [facility] [address] [id number] [place] [address] 8217 Jul, [facility] [place] [facility] [address] [id number] [place] [address] 7487 Jul, [facility] [address] [id number] [place] [address] 2543 June, [facility] [address] [id number] [place] [address] 5362 June, [facility] [address] [id number] [place] [address]- 6296 June, [facility] [address] [id number] [place] [address]- 6348 June, [facility] [address] [id number] [place] [address]- 2610 June, [facility] [address] [id number] [place] [address] 1972 June, [facility] [address] [id number] [place] [address]- 8527 June, [facility] [address] [id number] [place] [address]- 2114 June, [facility] [address] [id number] [place] [address]- 2349 June, [facility] [address] [id number] [place] [address]- 6463 June, [facility] [address] [id number] [place] [address]- 9096 June, [facility] [address] [id number] [place] [address]- 9970 May, [facility] [address] [id number] [place] [address]- 6635 May, [facility] [address] [id number] [place] [address]- 2723 May, [facility] [address] [id number] [place] [address]- 7441 May, [facility] [address] [id number] [place] [address]- 7901 Apr, [facility] [address] [id number] [place] [address]- 6496 Apr, [facility] [address] [id number] [place] [address]- 7148 Apr, [facility] [address] [id number] [place] [address]- 0968 Mar, [facility] [address] [id number] [place] [address]- 8897 Mar, [facility] [address] [id number] [place] [address]- 8887 Feb, [facility] [address] [id number] [place] [address]- 4783 Feb, [facility] [address] [id number] [place] [address]- 0533 Feb, [facility] [address] [id number] [place] [address]- 1810 Feb, [facility] [address] [id number] [place] [address]- 0926 Feb, [facility] [address] [id number] [place] [address]- 6205 Feb, [facility] [address] [id number] [place] [address]- 9478 Feb, [facility] [address] [id number] [place] [address]- 7719 Jan, [facility] [address] [id number] [place] [address]- 0934 Jan, [facility] [place] [facility] [address] [id number] [place] [address]- 4092 Jan, [facility] [address] [id number] [place] [address]- 6344 17 Jan, 2012 [facility] [place] [facility] [address] [id number] [place] [address]- 5093 17 Jan, 2012 [facility] [place] [facility] [address] [id number] [place] [address]- 1136 Jan, [facility] [place] [facility] [address] [id number] [place] [address]- 6186 Jan, [facility] [place] [facility] [address] [id number] [place] [address]- 3606 Jan, [facility] [place] [facility] [address] [id number] [place] [address]- 8485 Jan, [facility] [place] [facility] [address] [id number] [place] [address]- 5997 Jan, [facility] [place] [facility] [address] [id number] [place] [address]- 3710 Jan, [facility] [place] [facility] [address] [id number] [place] [address]- 8929 Dec, [facility] [place] [facility] [address] [id number] [place] [address]- 8443 Dec, [facility] [place] [facility] [address] [id number] [place] [address]- 6787 Dec, [facility] [place] [facility] [address] [facility] [id number] [place] [address]- 7538 Dec, [facility] [place] [facility] [address] [id number] [place] [address]- 4622 Nov, [facility] [place] [facility] [address] [id number] [place] [address]- 5465 Nov, [facility] [place] [facility] [address] [id number] [place] [address]- 5166 Nov, [facility] [place] [facility] [address] [id number] [place] [address]- 9616 27 Oct, 2011 [facility] [place] [facility] [address] [id number] [place] [address]- 4501 24 Oct, 2011 [facility] [place] [facility] [address] [id number] [place] [address]- 3743 21 Oct, 2011 [facility] [place] [facility] [address] [id number] [place] [address]- 2577 10 Oct, 2011 [facility] [place] [facility] [address] [id number] [place] [address]- 1978 07 Oct, 2011 [facility] [place] [facility] [address] [id number] [place] [address]- 0263 04 Oct, 2011 [facility] [place] [facility] [address] [id number] [place] [address]- 3824 04 Oct, 2011 [facility] [place] [facility] [address] [id number] [place] [address]- 0319 29 Sep, 2011 [facility] [place] [facility] [address] [id number] [place] [address]- 1307 Sep, [facility] [place] [facility] [address] [id number] [place] [address]- 6848 Sep, [facility] [place] [facility] [address] [id number] [place] [address]- 9493 Sep, [facility] [place] [facility] [address] [id number] [place] [address]- 6289 Sep, [facility] [place] [facility] [address] [id number] [place] [address]- 7085 30 Aug, 2011 [facility] [place] [facility] [address] [id number] [place] [address]- 1443 26 Aug, 2011 [facility] [place] [facility] [address] [id number] [place] [address]- 8274 17 Aug, 2011 [facility] [place] [facility] [address] [id number] [place] [address]- 5748 16 Aug, 2011 [facility] [place] [facility] [address] [id number] [place] [address]- 6647 13 Aug, 2011 [facility] [place] [facility] [address] [id number] [place] [address]- 0700 Aug, [facility] [place] [facility] [address] [id number] [place] [address]- 8334 Aug, [facility] [place] [facility] [address] [id number] [place] [address]- 9597 Jul, [facility] [place] [facility] [address] [id number] [place] [address]- 1976 Jul, [facility] [place] [facility] [address] [id number] [place] [address]- 8625 Jul, [facility] [place] [facility] [address] [id number] [place] [address]- 3106 Jul, [facility] [place] [facility] [address] [id number] [place] [address]- 7619 Jul, [facility] [place] [facility] [address] [id number] [place] [address]- 3005 Jul, [facility] [place] [facility] [address] [id number] [place] [address]- 2811 Jul, [facility] [place] [facility] [address] [id number] [place] [address]- 0644 Jul, [facility] [place] [facility] [address] [id number] [place] [address]- 2583 Jul, [facility] [place] [facility] [address] [id number] [place] [address]- 1977 June, [facility] [place] [facility] [address] [id number] [place] [address]- 0068 June, [facility] [place] [facility] [address] [id number] [place] [address]- 7651 June, [facility] [place] [facility] [address] [id number] [place] [address]- 4320 June, [facility] [place] [facility] [address] [id number] [place] [address]- 4280 June, [facility] [place] [facility] [address] [id number] [place] [address]- 3674 14 Jun, 2011 [facility] [address] [id number] [place] [address]- 1928 June, [facility] [place] [facility] [address] [id number] [place] [address]- 5283 June, [facility] [place] [facility] [address] [id number] [place] [address]- 5038 25 May, 2011 [facility] [address] [id number] [place] [address]- 3012 23 May, 2011 [facility] [place] [facility] [address] [id number] [place] [address]- 6363 May, [facility] [address] [id number] [place] [address]- 3237 May, [facility] [address] [id number] [place] [address]- 6936 May, [facility] [address] [id number] [place] [address]- 8120 16 May, 2011 [facility] [place] [facility] [address] [id number] [place] [address]- 2247 May, [facility] [place] [facility] [address] [id number] [place] [address]- 1919 27 Apr, 2011 [facility] [place] [facility] [address] [id number] [place] [address]- 3372 Apr, [facility] [place] [facility] [address] [id number] [place] [address]- 0189 Apr, [facility] [place] [facility] [address] [id number] [place] [address]- 6293 19 Apr, 2011 [facility] [place] [facility] [address] [id number] [place] [address]- 1830 12 Apr, 2011 [facility] [place] [facility] [address] [id number] [place] [address]- 8566 Apr, [facility] [address] [id number] [place] [address]- 0086 Apr, [facility] [place] [facility] [address] [id number] [place] [address]- 2306 Mar, [facility] [address] [id number] [place] [address]- 3826 Mar, [facility] [place] [facility] [address] [id number] [place] [address]- 3706 14 Mar, 2011 [facility] [address] [id number] [place] [address]- 2336 Mar, [facility] [address] [id number] [place] [address]- 7816 Mar, [facility] [address] [facility] [id number] [place] [address]- 4806 Mar, [facility] [address] [id number] [place] [address]- 0161 Mar, [facility] [address] [id number] [place] [address]- 5152 Feb, [facility] [address] [facility] [id number] [place] [address]- 6386 Feb, [facility] [address] [id number] [place] [address]- 8416 Feb, [facility] [place] [facility] [address] [id number] [place] [address]- 9266 Feb, [facility] [place] [facility] [address] [id number] [place] [address]- 4606 Feb, [facility] [place] [facility] [address] [facility] [id number] [place] [address]- 6376 Feb, [facility] [place] [facility] [address] [facility] [id number] [place] [address]- 4846 Feb, [facility] [place] [facility] [address] [id number] [place] [address]- 0483 Feb, [facility] [address] [id number] [place] [address]- 9134 Feb, [facility] [place] [facility] [address] [id number] [place] [address]- 2686 Feb, [facility] [address] [id number] [place] [address]- 4599 Jan, [facility] [address] [id number] [place] [address]- 6675 Jan, [facility] [place] [facility] [address] [id number] [place] [address]- 9066 Jan, [facility] [address] [id number] [place] [address]- 5326 Jan, [facility] [place] [facility] [address] [id number] [place] [address]- 1532 Jan, [facility] [place] [facility] [address] [id number] [place] [address]- 4074 Jan, [facility] [place] [facility] [address] [id number] [place] [address]- 5269 Jan, [facility] [place] [facility] [address] [id number] [place] [address]- 9831 Jan, [facility] [place] [facility] [address] [id number] [place] [address]- 3571 Jan, [facility] [place] [facility] [address] [id number] [place] [address]- 5384 Jan, [facility] [place] [facility] [address] [id number] [place] [address]- 0884 Jan, [facility] [place] [facility] [address] [id number] [place] [address]- 9845 Dec, [facility] [place] [facility] [address] [id number] [place] [address]- 1401 17 Dec, 2010 [facility] [place] [facility] [address] [id number] [place] [address]- 5730 17 Dec, 2010 [facility] [place] [facility] [address] [id number] [place] [address]- 9483 16 Dec, 2010 [facility] [place] [facility] [address] [id number] [place] [address]- 9781 14 Dec, 2010 [facility] [place] [facility] [address] [id number] [place] [address]- 3956 09 Dec, 2010 [facility] [place] [facility] [address] [id number] [place] [address]- 8103 08 Dec, 2010 [facility] [place] [facility] [address] [id number] [place] [address]- 3787 Dec, [facility] [place] [facility] [address] [id number] [place] [address]- 1349 Dec, [facility] [place] [facility] [address] [id number] [place] [address]- 2187 Nov, [facility] [place] [facility] [address] [id number] [place] [address]- 3095 Nov, [facility] [place] [facility] [address] [id number] [place] [address]- 9380 Nov, [facility] [place] [facility] [address] [id number], [place] [address]- 8638 24 Nov, 2010 [facility] [place] [facility] [address] [id number], [place] [address]- 9991 24 Nov, 2010 [facility] [place] [facility] [address] [id number] [place] [address]- 8039 13 Nov, 2010 [facility] [place] [facility] [address] [id number], [place] [address]- 9465 Aug, [facility] [place] [facility] [address] [id number] [place] [address]- 3942 Feb, [facility] [place] [facility] [id number], [place] [address]- 2903 14 Jan, 2010 [facility] [id number], [place] [address]- 0903 Jan, [facility] [id number] [place] [address] Jan, [facility] [id number], [place] [address] Jan, [facility] [id number] [place] [address] Jan, [facility] [id number] [place] [address] Dec, [facility] [id number] [place] [address] Dec, [facility] [id number] [place] [address] Dec, [facility] [id number] [place] [address] Dec, [facility] [id number] [place] [address] Nov, [facility] [id number] [place] [address] Nov, [facility] [id number], [place] [address] Nov, IMMUNIZATIONS No Known Immunizations SOCIAL HISTORY Never Assessed REASON FOR VISIT Hep C meds note PLAN OF CARE VITAL SIGNS MEDICATIONS Unknown [...]
--- OUTSIDE RECORDS SUMMARY | 2018-01-13 20:41 | XMS REPORT ---
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 Active 977094812 Problem Hypertension I10 Active 77072783 Problem Arthritis M19.90 Active 1398810 Problem 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 Active 53357404 Problem Anxiety F41.9 Active 10419065 Problem Unspecified episodic mood disorder F39 Active 52241411 Problem Left hip pain M25.552 Active 03091546 ALLERGIES No Information ENCOUNTERS Encounter Location Date Diagnosis [facility] [address] [facility] [id number] [address] Nov, [facility] [id number] [address] Oct, [facility] [address] [facility] [id number] [address] Oct, Chronic hepatitis C without hepatic coma B18.2 and Encounter for immunization Z23 [facility] [id number] [place] [address] 43540- 4564 Oct, [facility] [address] [address]- [address] Oct, Arthritis M19.90 and Unspecified episodic mood disorder F39 [facility] [address] [address]- 6759 Sep, Chronic hepatitis C without hepatic coma B18.2 [facility] [address] 8[address]60- 6629 Sep, Gastroesophageal reflux disease, esophagitis presence not specified K21.9 and Other chronic pain G89.29 [facility] [address] 06267- 2705 Sep, [facility] [address] [address]- [address]14 Sep, [facility] [address] 46294- 6614 Sep, Chronic hepatitis C without hepatic coma B18.2 [facility] [address] [address]20- 9660 Sep, 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 [facility] [id number] [place] [address] 54170- 2519 Sep, Arthritis M19.90 [facility] [id number] [place] [address] 37953- 0382 Sep, [facility] [address] 17448- 4731 Sep, Unspecified episodic mood disorder F39 [facility] [id number] [place] [address] 64805- 0797 Aug, [facility] [address] [id number] Aug, [facility] [id number] [address] Aug, Arthritis M19.90 [facility] [address] [address] Aug, [facility] [id number] [address]85 Aug, Obesity (BMI 30.0-34.9) E66.9 ; Unspecified episodic mood disorder F39 and Hypertension I10 [facility] [id number] [place] [address] 16086- 8506 Aug, Unspecified episodic mood disorder F39 [facility] [id number] [place] [address] 67717- 7017 Aug, [facility] [id number] [place] [address] 14692- 1996 Jul, Unspecified episodic mood disorder F39 [facility] [id number] [address] 6131 Jul, [facility] [id number] [place] [address] 86629- 6724 Jul, Arthritis M19.90 [facility] [address] [address] 68[address] Jul, Left hip pain M25.552 ; Hypertension I10 ; Other obesity due to excess calories E66.09 and Body mass index (BMI) of 34.0-34.9 in adult Z68.34 [facility] [id number] [address] 1029 Jul, Unspecified episodic mood disorder F39 [facility] [id number] [address] 3065 June, Gastroesophageal reflux disease, esophagitis presence not specified K21.9 [facility] [id number] [place] [address] 35086- 5837 June, [facility] [id number] [address] 9927 June, [facility] [id number] [place] [address] 13399- 8496 June, Arthritis M19.90 [facility] [address] [address] 3774 June, [facility] [id number] [place] [address] 50088- 8183 June, [facility] [id number] [place] [address] 48780- 6251 June, Unspecified episodic mood disorder F39 [facility] [id number] [place] [address] 93961- 2788 May, Unspecified episodic mood disorder F39 [facility] [id number] [place] [address] 68577- 8601 May, [facility] [id number] [place] [address] 12241- 8403 May, Arthritis M19.90 [facility] [id number] [place] [address] 58714 -8286 May, Dysuria R30.0 ; Abscess L02.91 and Acute cystitis without hematuria N30.00 [facility] [address] [address] 5314 May, 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 ; Unspecified episodic mood disorder F39 ; Combined drug dependence excluding opioids, 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 ; Anxiety F41.9 and Other psychoactive substance dependence, 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 [facility] [id number] [place] [address] 17997- 6856 May, [facility] [address] [address]- 7376 May, 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 ; Unspecified episodic mood disorder F39 ; Combined drug dependence excluding opioids, 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 ; Other psychoactive substance dependence, 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 and Anxiety F41.9 [facility] [address] 21923- 3083 May, Other chronic pain G89.29 ; Left hip pain M25.552 ; Hypertension I10 ; 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, 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 and Unspecified episodic mood disorder F39 [facility] [id number] [place] [address] 21188- 7131 Apr, [facility] [address] 29697 -6455 Apr, Neck pain M54.2 ; Left hip pain M25.552 and Fall, initial encounter W19.XXXA [facility] [address] 26881- 4182 Apr, Unspecified episodic mood disorder F39 ; Combined drug dependence excluding opioids, 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 ; Anxiety F41.9 ; Other psychoactive substance dependence, 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 and 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 [facility] [address] 49307- 8794 Apr, [facility] [address] 43704- 8833 Apr, Arthritis M19.90 and Unspecified episodic mood disorder F39 [facility] [id number] [place] [address] 70872- 9100 Apr, Unspecified episodic mood disorder F39 [facility] [address] 47111- 2791 Apr, [facility] [address] 16986- 1039 Apr, [facility] [address] 30447- 1740 Apr, Unspecified episodic mood disorder F39 ; Combined drug dependence excluding opioids, 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 ; Anxiety F41.9 ; Other psychoactive substance dependence, 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 and 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 [facility] [id number] [place] [address] 23154- 3437 Mar, Unspecified episodic mood disorder F39 [facility] [id number] [place] [address] 30280- 3741 Mar, Gastroesophageal reflux disease, esophagitis presence not specified K21.9 [facility] [id number] [place] [address] 78460- 7743 Mar, Arthritis M19.90 and Unspecified episodic mood disorder F39 [facility] [id number] [place] [address] 81996- 1922 Feb, [facility] [address] 93677- 0054 Feb, [facility] [id number] [place] [address] 35080- 0443 Feb, [facility] [id number] [place] [address] 31285- 1026 Feb, Arthritis M19.90 [facility] [id number] [place] [address] 01833- 3792 Feb, Non-pressure chronic ulcer of right calf, 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 ; Unspecified episodic mood disorder F39 and Left hip pain M25.552 [facility] [id number] [place] [address] 67356 2547 Feb, [facility] [id number] [place] [address] 28022- 1336 Feb, [facility] [id number] [place] [address] 85468- 2881 Jan, Arthritis M19.90 [facility] [address] 88783- 4863 Jan, Left hip pain M25.552 and Non-pressure chronic ulcer of right calf, 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 [facility] [id number] [place] [address] 63770- 2608 Jan, Chronic hepatitis C without hepatic coma B18.2 [facility] [id number] [place] [address] 43023- 4250 Jan, Encounter for immunization Z23 ; Venous insufficiency ( chronic) (peripheral) I87.2 ; Non-pressure chronic ulcer of unspecified calf limited to breakdown of skin L97.201 and Gastroesophageal reflux disease, esophagitis presence not specified K21.9 [facility] [id number] [place] [address] 86416- 1624 Jan, [facility] [id number] [place] [address] 63592- 6134 Jan, Chronic hepatitis C without hepatic coma B18.2 and Encounter for immunization Z23 [facility] [id number] [place] [address] 68471- 1215 Jan, Arthritis M19.90 [facility] [id number] [place] [address] 61522- 3718 Jan, [facility] [id number] [place] [address] 25622- 6985 Dec, [facility] [id number] [place] [address] 35344- 7760 Dec, Unspecified episodic mood disorder F39 [facility] [id number] [place] [address] 47997- 7855 Dec, Arthritis M19.90 [facility] [id number] [place] [address] 13615- 2976 Dec, Arthritis M19.90 [facility] [id number] [place] [address] 05038- 0315 Nov, [facility] [id number] [place] [address] 86797- 7882 Nov, [facility] [id number] [place] [address] 49106- 5287 Nov, Other psychoactive substance dependence, 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 ; 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, 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 and Chronic hepatitis C without hepatic coma B18.2 [facility] [address] 27092- 8552 Nov, Arthritis M19.90 [facility] [id number] [place] [address] 21110 -9525 Oct, Partial thickness burn of abdomen, initial encounter T21.22XA [facility] [id number] [place] [address] 21077- 5631 Oct, [facility] [id number] [place] [address] 00388- 2619 Sep, Arthritis M19.90 [facility] [id number] [place] [address] 90761- 1595 Sep, [facility] [id number] [place] [address] 31259- 3394 Sep, [facility] [id number] [place] [address] 97309- 1520 Sep, Unspecified episodic mood disorder F39 ; Chronic hepatitis C without hepatic coma B18.2 and Left hip pain M25.552 [facility] [id number] [place] [address] 37884- 4714 Sep, Arthritis M19.90 and Left hip pain M25.552 [facility] [id number] [place] [address] 37418- 6676 Aug, [facility] [id number] [place] [address] 70713- 5703 Aug, [facility] [id number] [place] [address] 95657- 0181 Aug, Chronic hepatitis C without hepatic coma B18.2 [facility] [id number] [place] [address] 41226- 3327 Aug, [facility] [id number] [place] [address] 08973- 1908 Aug, Chronic hepatitis C without hepatic coma B18.2 [facility] [id number] [place] [address] 03950- 9369 Aug, 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, 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 [facility] [id number] [place] [address] 42618- 2359 Aug, [facility] [id number] [place] [address] 13851- 1050 Aug, Chronic hepatitis C without hepatic coma B18.2 and Hypertension I10 [facility] [id number] [place] [address] 21278- 7583 Jul, [facility] [id number] [place] [address] 87318- 3920 June, [facility] [id number] [place] [address] 51939- 5688 Apr, Fibromyalgia M79.7 ; Left hip pain M25.552 and Decubitus ulcer of sacral region, stage 1 L89.151 [facility] [id number] [place] [address] 05483- 5910 Apr, [facility] [id number] [place] [address] 88677- 3516 Apr, [facility] [id number] [place] [address] 78163- 0251 Feb, [facility] [id number] [place] [address] 45349- 5412 Dec, Anxiety F41.9 ; Combined drug dependence excluding opioids, 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 and Unspecified episodic mood disorder F39 [facility] [address] [address]- 4295 Dec, [facility] [id number] [place] [address] 38471- 1832 Nov, [facility] [id number] [place] [address] 39056- 9838 Nov, [facility] [id number] [place] [address] 64388- 4256 Nov, 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 and Anxiety F41.9 [facility] [id number] [place] [address] 63825- 1060 Oct, [facility] [id number] [place] [address] 76884 -9206 14 Oct, 2015 Open wound of left thigh, initial encounter S71.102A [facility] [id number] [place] [address] 58701- 7802 Oct, [facility] [id number] [place] [address] 16638- 2874 Sep, Unspecified episodic mood disorder F39 ; Other disorder of impulse control 312.39 ; Combined drug dependence excluding opioids, 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 and Anxiety F41.9 [facility] [address], [place] [address]- 7386 Sep, Other disorder of impulse control 312.39 ; Combined drug dependence excluding opioids, 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 ; Anxiety F41.9 and Unspecified episodic mood disorder F39 [facility] [address] [address]- 2223 Sep, Other chronic pain G89.29 [facility] [id number] [place] [address] 09510- 5499 Sep, [facility] [id number], [place] [address]- 3582 Sep, [facility] [id number], [place] [address]- 8952 Aug, [facility] [id number] [address]- 3508 Aug, [facility] [id number] [address]- 5328 Aug, [facility] [id number] [place] [address] 12213- 3781 Jul, [facility] [id number] [place] [address] 44205- 1879 Jul, [facility] [id number] [place] [address] 34871- 5453 Jul, [facility] [address] [address]- 7003 Jul, Arthritis M19.90 ; Chronic hepatitis C without hepatic coma B18.2 and Left hip pain M25.552 [facility] [address], [place] [address]- 1329 Jul, Left knee pain M25.562 [facility] [id number] [place] [address] 43128- 5569 Jul, Combined drug dependence excluding opioids, 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 ; Anxiety F41.9 ; Other disorder of impulse control 312.39 and Unspecified episodic mood disorder F39 [facility] [address] [address]- 8775 Jul, Left knee pain M25.562 [facility] [address] [address]- 2758 Jul, Left knee pain M25.562 and Left hip pain M25.552 [facility] [address] [address]- 7161 Jul, [facility] [id number] [place] [address] 11889- 0797 June, [facility] [id number] [place] [address] 56305- 6176 June, Combinations of drug dependence excluding opioid type drug, 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 ; Other disorder of impulse control 312.39 ; Unspecified episodic mood disorder F39 and Anxiety F41.9 [facility] [id number] [place] [address] 41372- 8054 June, Other fatigue R53.83 ; Headache R51 and Left knee pain M25.562 [facility] [id number] [place] [address] 23138- 8210 June, Unspecified episodic mood disorder F39 ; Combinations of drug dependence excluding opioid type drug, 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 ; Other disorder of impulse control 312.39 and Anxiety F41.9 [facility] [id number] [place] [address] 99228- 7131 June, Anxiety F41.9 [facility] [id number] [place] [address] 71231- 4145 June, Pain in left knee M25.562 [facility] [id number] [place] [address] 79267- 5525 June, Anxiety F41.9 and Combinations of drug dependence excluding opioid type drug, 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 [facility] [address] [address]- 6404 June, Unspecified episodic mood disorder 296.90 ; Combinations of drug dependence excluding opioid type drug, 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 and Other disorder of impulse control 312.39 [facility] [id number] [place] [address] 57716- 3287 June, Anxiety F41.9 and Unspecified episodic mood disorder 296.90 [facility] [id number] [place] [address] 77279- 6484 May, Arthritis M19.90 [facility] [id number] [place] [address] 36715- 3386 May, Arthritis M19.90 [facility] [address] [address]- 7138 May, Anxiety F41.9 ; Combinations of drug dependence excluding opioid type drug, unspecified abuse 304.80 and Other disorder of impulse control 312.39 [facility] [address] [address]- 0312 18 May, 2015 Left knee pain M25.562 [facility] [id number] [place] [address] 10181- 9832 May, Arthritis M19.90 [facility] [id number] [place] [address] 45456- 5120 May, [facility] [address] [address]- 4717 May, Anxiety F41.9 ; Unspecified episodic mood disorder 296.90 ; Combinations of drug dependence excluding opioid type drug, unspecified abuse 304.80 and Other disorder of impulse control 312.39 [facility] [address] [address]- 3658 May, Left knee pain M25.562 [facility] [id number] [place] [address] 88007- 2988 May, Left knee pain M25.562 ; Combinations of drug dependence excluding opioid type drug, unspecified abuse 304.80 ; Other disorder of impulse control 312.39 ; Fibromyalgia M79.7 ; Hypertension I10 ; Unspecified episodic mood disorder 296.90 and Left hip pain M25.552 [facility] [id number] [address]- 1393 May, Unspecified episodic mood disorder 296.90 ; Other disorder of impulse control 312.39 ; Combinations of drug dependence excluding opioid type drug, unspecified abuse 304.80 and Anxiety F41.9 [facility] [address] [address]- 2916 May, Left knee pain M25.562 ; Combinations of drug dependence excluding opioid type drug, unspecified abuse 304.80 ; Other disorder of impulse control 312.39 ; Fibromyalgia M79.7 ; Hypertension I10 ; Unspecified episodic mood disorder 296.90 and Left hip pain M25.552 [facility] [id number] [place] [address] May, Anxiety F41.9 ; Unspecified episodic mood disorder 296.90 ; Other disorder of impulse control 312.39 and Combinations of drug dependence excluding opioid type drug, unspecified abuse 304.80 [facility] [id number] [place] [address] 30 Apr, 2015 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 and 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, implants and grafts, initial encounter T84.82XA [facility] [id number] [place] [id number] 28 Apr, 2015 Anxiety F41.9 ; Unspecified episodic mood disorder 296.90 ; Combinations of drug dependence excluding opioid type drug, unspecified abuse 304.80 and Other disorder of impulse control 312.39 [id number] [place] [address] Apr, Arthritis M19.90 [id number] [place] [address] 29924- 4947 Apr, Anxiety F41.9 ; Unspecified episodic mood disorder 296.90 ; Combinations of drug dependence excluding opioid type drug, unspecified abuse 304.80 and Other disorder of impulse control 312.39 [facility] [id number] [place] [address] 40853- 2990 17 Apr, 2015 Arthritis M19.90 [facility] [id number] [place] [address] 20361- 6427 15 Apr, [address] [place] [id number] [place] [address] 79831- 2533 Apr, [place] [id number] [place] [address] 71334- 1508 14 Apr, 2015 Unspecified episodic mood disorder 296.90 ; Combinations of drug dependence excluding opioid type drug, unspecified abuse 304.80 ; Other disorder of impulse control 312.39 and Anxiety F41.9 [facility] [id number] [place] [address] 51957 -7545 Apr, Left knee pain M25.562 [facility] [id number] [place] [address] 85690- 5016 Apr, [facility] [id number] [place] [address] 78387- 3709 Mar, Unspecified episodic mood disorder 296.90 ; Anxiety F41.9 ; Other disorder of impulse control 312.39 and Combinations of drug dependence excluding opioid type drug, unspecified abuse 304.80 [facility] [id number] [place] [address] 98375- 9414 Mar, Hyperpigmentation L81.9 [facility] [id number] [place] [address] 37250- 1262 Mar, Arthritis M19.90 and Anxiety F41.9 [place] [id number] [place] [address] 31835- 1251 Mar, Unspecified episodic mood disorder F39 ; Combined drug dependence excluding opioids, 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 ; 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 and Anxiety F41.9 [facility] [id number] [place] [address] 68380- 9851 12 Mar, 2015 Well woman exam Z01.419 ; Other fatigue R53.83 ; Hot flashes N95.1 ; Depression, unspecified depression type F32.9 and Body mass index (BMI) of 23.0-23.9 in adult Z68.23 [place] [id number] [place] [address] 36763- 7194 11 Mar, 2015 Unspecified episodic mood disorder 296.90 ; Other disorder of impulse control 312.39 and Anxiety F41.9 [facility] [id number] [place] [address] 81578- 7218 Mar, Well woman exam Z01.419 ; Encounter for [...] of breast Z12.39 and Limited mobility Z74.[address] 58394- 5523 Mar, [address] 94820- 5360 Mar, [address] 73218- 4225 Mar, [address] 10829- 6624 03 Mar, 2015 Other specified complication of internal orthopedic prosthetic devices, implants and grafts, initial encounter T84.89XA ; Fibromyalgia M79.7 ; Hypertension I10 ; Anemia D64.9 ; Insomnia G47.00 ; Anxiety F41.9 ; Arthritis M19.90 and Migraine G43.[address] 07870- 6119 Mar, [address] 56167- 8815 Feb, [address] 41769- 2816 Feb, Arthritis M19.90 and Anxiety F41.[address] 57141- 3708 Feb, [facility] [address] [address]- 7498 Feb, [facility] [id number] [address]- 8173 Feb, [facility] [address] [address]- 4554 Feb, [facility] [id number] [place] [address] 13741- 3690 Feb, Anxiety F41.9 [facility] [id number] [place] [address] 08699- 6062 Feb, [facility] [id number] [place] [address] 30620- 3394 Feb, [facility] [id number] [place] [address] 66093- 9838 Feb, 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 and Fibromyalgia M79.7 [facility] [id number] [address]- 1161 Feb, [facility] [id number] [address]- 3422 Jan, [facility] [id number] [address]- 4059 Jan, [facility] [id number] [address]- 4164 28 Jan, 2015 [facility] [id number] [address]- 4485 24 Jan, 2015 [facility] [id number] [address]- 7194 16 Jan, 2015 [facility] [id number] [address]- 2545 08 Jan, 2015 [facility] [id number] [address]- 9600 Jan, [facility] [id number] [address]- 6761 Jan, [facility] [id number] [place] [address] 08453- 0277 Dec, [facility] [id number] [place] [address] 39295- 7135 Dec, Left knee pain M25.562 [facility] [id number] [place] [address] 480072- 0140 Dec, Left knee pain M25.562 [facility] [id number] [place] [address] 44073- 9482 Dec, Fibromyalgia M79.7 ; Hypertension I10 and Arthritis M19.90 [facility] [id number] [place] [address] 50469- 9170 Dec, [facility] [id number] [place] [address] 87648- 2490 Dec, [facility] [id number] [place] [address] 43365- 0256 Dec, [facility] [id number] [place] [address] 32942- 9622 Dec, [facility] [id number] [place] [address] 96556- 6982 Nov, [facility] [id number] [place] [address] 51012- 3793 Nov, [facility] [id number] [address]- 2230 Nov, [facility] [id number] [place] [address] 20577- 9979 Nov, Hypertension I10 [facility] [id number] [address]- 5186 Oct, [facility] [id number] [address]- 4367 17 Oct, 2014 [facility] [address] [id number] [address]- 3622 Oct, [facility] [place] [facility] [address] [id number], [place] [address]- 6546 Oct, [facility] [address] [id number], [place] [address]- 8978 Oct, [facility] [place] [facility] [address] [id number], [place] [address]- 4669 Sep, [facility] [address] [id number], [place] [address]- 5341 Sep, [facility] [address] [facility] [id number], [place] [address]- 0081 Sep, Hip pain associated with recalled total hip arthroplasty hardware 996.77 [facility] [address] [id number], [place] [address]- 5786 Sep, [facility] [address] [facility] [id number], [place] [address]- 8585 Sep, [facility] [address] [facility] [id number], [place] [address]- 5317 Sep, [facility] [address] [facility] [id number], [place] [address]- 9816 Aug, [facility] [place] [facility] [address] [facility] [id number], [place] [address]- 3932 Jul, [facility] [place] [facility] [address] [facility] [id number], [place] [address]- 3616 June, [facility] [place] [facility] [address] [facility] [id number], [place] [address]- 9631 June, [facility] [place] [facility] [address] [facility] [id number], [place] [address]- 2707 June, [facility] [place] [facility] [address] [id number], [place] [address]- 4126 June, [facility] [place] [facility] [address] [id number] [place] [address]- 9012 June, [facility] [place] [facility] [address] [id number] [place] [address]- 0577 June, [facility] [place] [facility] [address] [facility] [id number] [place] [address]- 8526 May, [facility] [place] [facility] [address] [id number] [place] [address]- 3054 May, [facility] [place] [facility] [address] [id number] [place] [address]- 7541 May, [facility] [place] [facility] [address] [id number] [place] [address]- 8450 Apr, [facility] [place] [facility] [address] [id number] [place] [address]- 1806 Apr, [facility] [place] [facility] [address] [id number] [place] [address]- 8226 Apr, [facility] [place] [facility] [address] [id number] [place] [address]- 4259 Apr, [facility] [place] [facility] [address] [facility] [id number] [place] [address]- 7144 Apr, [facility] [place] [facility] [address] [id number] [place] [address]- 6468 Apr, [facility] [place] [facility] [address] [id number] [place] [address]- 1647 Apr, [facility] [place] [facility] [address] [id number] [place] [address]- 3601 Apr, [facility] [place] [facility] [address] [facility] [id number] [place] [address]- 1465 10 Apr, 2014 [facility] [place] [facility] [address] [facility] [id number] [place] [address]- 3866 05 Apr, 2014 [facility] [place] [facility] [address] [id number] [place] [address]- 9204 Apr, [facility] [place] [facility] [address] [id number] [place] [address]- 1054 Mar, 2014 [facility] [place] [facility] [address] [id number] [place] 1506 Mar, 2014 [facility] [place] [facility] [address] [id number] [place] [address]- 0198 Mar, 2014 [facility] [place] [facility] [address] [id number] [place] [address]- 2688 Mar, 2014 [facility] [place] [facility] [address] [id number] [place] [address]- 6555 Mar, [facility] [place] [facility] [address] [id number] [place] [address]- 4397 Mar, [facility] [place] [facility] [address] [id number] [place] [address]- 9935 Feb, [facility] [place] [facility] [address] [id number] [place] [address]- 4281 Feb, [facility] [place] [facility] [address] [id number] [place] [address]- 1170 Feb, [facility] [place] [facility] [address] [id number] [place] [address]- 0584 Feb, [facility] [place] [facility] [address] [id number] [place] [address]- 9478 Jan, [facility] [place] [facility] [address] [id number] [place] [address]- 4959 Jan, [facility] [place] [facility] [address] [id number] [place] 3406 Jan, [facility] [place] [facility] [address] [id number] [place] 6284 Jan, [facility] [place] [facility] [address] [id number], [place] [address]- 7102 Dec, [facility] [place] [facility] [address] [id number] [place] [address]- 8393 Dec, [facility] [place] [facility] [address] [id number] [place] [address]- 3894 Dec, [facility] [place] [facility] [address] [id number] [place] [address]- 6737 Dec, [facility] [place] [facility] [address] [id number] [place] [address]- 9670 Dec, [facility] [place] [facility] [address] [id number] [place] [address]- 5605 Dec, [facility] [place] [facility] [address] [id number] [place] [address]- 6769 Dec, [facility] [place] [facility] [address] [id number] [place] [address]- 1736 Dec, [facility] [place] [facility] [address] [id number] [place] [address]- 8121 Dec, [facility] [place] [facility] [address] [id number] [place] [address]- 4533 Dec, [facility] [place] [facility] [address] [id number] [place] [address]- 9080 Dec, [facility] [place] [facility] [address] [id number], [place] [address]- 3221 31 Nov, 2013 [facility] [place] [facility] [address] [id number], [place] [address]- 0965 Nov, [facility] [place] [facility] [address] [id number] [place] [address]- 2823 Nov, [facility] [place] [facility] [address] [id number] [place] [address]- 5654 Nov, [facility] [place] [facility] [address] [id number] [place] [address]- 3628 Nov, [facility] [place] [facility] [address] [id number] [place] [address]- 8928 15 Nov, 2013 [facility] [place] [facility] [address] [id number] [place] [address]- 1799 15 Nov, 2013 [facility] [place] [facility] [address] [id number] [place] [address]- 9570 15 Nov, 2013 [facility] [place] [facility] [address] [id number] [place] [address]- 3409 15 Nov, 2013 [facility] [place] [facility] [address] [id number] [place] [address]- 1291 14 Nov, 2013 [facility] [place] [facility] [address] [id number] [place] [address]- 0002 14 Nov, 2013 [facility] [place] [facility] [address] [id number] [place] [address]- 7875 14 Nov, 2013 [facility] [place] [facility] [address] [id number] [place] [address]- 0441 14 Nov, 2013 [facility] [place] [facility] [address] [id number] [place] [address]- 0865 13 Nov, 2013 [facility] [place] [facility] [address] [id number] [place] [address]- 3451 13 Nov, 2013 [facility] [place] [facility] [address] [id number] [place] [address]- 3454 11 Nov, 2013 [facility] [place] [facility] [address] [id number] [place] [address]- 6046 11 Nov, 2013 [facility] [place] [facility] [address] [id number] [place] [address]- 8431 07 Nov, 2013 [facility] [place] [facility] [address] [id number] [place] [address]- 5544 07 Nov, 2013 [facility] [place] [facility] [address] [id number] [place] [address]- 9516 07 Nov, 2013 [facility] [place] [facility] [address] [id number] [place] [address]- 5185 Nov, [facility] [place] [facility] [address] [id number] [place] [address]- 7582 30 Oct, 2013 [facility] [place] [facility] [address] [id number] [place] [address]- 0260 30 Oct, 2013 [facility] [place] [facility] [address] [id number] [place] [address]- 9817 26 Oct, 2013 [facility] [place] [facility] [address] [id number] [place] [address]- 8310 26 Oct, 2013 [facility] [place] [facility] [address] [id number] [place] [address]- 5408 22 Oct, 2013 [facility] [place] [facility] [address] [id number] [place] [address]- 3975 22 Oct, 2013 [facility] [place] [facility] [address] [id number] [place] [address]- 9098 18 Oct, 2013 [facility] [place] [facility] [address] [id number] [place] [address]- 4878 18 Oct, 2013 [facility] [place] [facility] [address] [id number] [place] [address]- 0706 18 Oct, 2013 [facility] [place] [facility] [address] [id number] [place] [address]- 9179 18 Oct, 2013 [facility] [place] [facility] [address] [id number] [place] [address]- 5460 12 Oct, 2013 [facility] [place] [facility] [address] [id number], [place] [address]- 6098 12 Oct, 2013 [facility] [place] [facility] [address] [id number] [place] [address]- 3796 Oct, 2013 [facility] [place] [facility] [address] [id number] [place] [address]- 3126 Oct, 2013 [facility] [place] [facility] [address] [id number] [place] [address]- 5946 Sep, [facility] [place] [facility] [address] [id number] [place] [address]- 2958 Sep, [facility] [place] [facility] [address] [id number] [place] [address]- 4112 Sep, [facility] [place] [facility] [address] [id number] [place] [address]- 0512 Sep, [facility] [place] [facility] [address] [id number] [place] [address]- 6290 Sep, [facility] [place] [facility] [address] [id number] [place] [address]- 4794 Sep, [facility] [place] [facility] [address] [id number] [place] [address]- 9727 Sep, [facility] [place] [facility] [address] [id number] [place] [address]- 4814 Sep, [facility] [place] [facility] [address] [id number] [place] [address]- 9579 Sep, [facility] [place] [facility] [address] [id number] [place] [address]- 5653 Sep, [facility] [place] [facility] [address] [id number] [place] [address]- 3864 Sep, [facility] [place] [facility] [address] [id number] [place] [address]- 7323 Sep, [facility] [place] [facility] [address] [id number] [place] [address]- 7333 Sep, [facility] [place] [facility] [address] [id number] [place] [address]- 0797 Sep, [facility] [place] [facility] [address] [id number] [place] [address]- 3405 Sep, [facility] [place] [facility] [address] [id number] [place] [address]- 2743 Sep, [facility] [place] [facility] [address] [id number] [place] [address]- 9453 Sep, [facility] [place] [facility] [address] [id number] [place] [address]- 1879 Sep, [facility] [place] [facility] [address] [id number] [place] [address]- 9481 Aug, [facility] [place] [facility] [address] [id number] [place] [address]- 1710 Aug, [facility] [place] [facility] [address] [id number] [place] [address]- 8134 Aug, [facility] [place] [facility] [address] [id number] [place] [address]- 8436 Aug, [facility] [place] [facility] [address] [id number] [place] [address]- 1539 Aug, [facility] [place] [facility] [address] [id number] [place] [address]- 6989 Aug, [facility] [place] [facility] [address] [id number] [place] [address]- 0498 Jul, [facility] [place] [facility] [address] [id number] [place] [address]- 2458 Jul, [facility] [place] [facility] [address] [id number] [place] [address]- 0924 Jul, [facility] [place] [facility] [address] [id number] [place] [address]- 0602 Jul, [facility] [place] [facility] [address] [id number] [place] [address]- 8349 June, [facility] [place] [facility] [address] [id number] [place] [address]- 2508 June, [facility] [place] [facility] [address] [id number] [place] [address]- 8900 June, [facility] [place] [facility] [address] [id number] [place] [address]- 5943 June, [facility] [place] [facility] [address] [id number] [place] [address]- 2286 June, [facility] [place] [facility] [address] [id number] [place] [address]- 9852 June, [facility] [place] [facility] [address] [id number] [place] [address]- 7212 June, [facility] [place] [facility] [address] [id number] [place] [address]- 5207 May, [facility] [place] [facility] [address] [id number] [place] [address]- 6180 May, [facility] [place] [facility] [address] [id number] [place] [address]- 9987 May, [facility] [place] [facility] [address] [id number] [place] [address] May, [facility] [place] [facility] [address] [id number] [place] [address] May, [facility] [place] [facility] [address] [id number] [place] [address] May, [facility] [place] [facility] [address] [id number] [place] [address] Apr, [facility] [place] [facility] [address] [id number] [place] [address] 31 Apr, 2013 [facility] [place] [facility] [address] [id number] [place] [address] 28 Apr, 2013 [facility] [place] [facility] [address] [id number] [place] [address] 28 Apr, 2013 [facility] [place] [facility] [address] [id number] [place] [address] 14 Apr, 2013 [facility] [place] [facility] [address] [id number] [place] [address] 14 Apr, 2013 [facility] [place] [facility] [address] [id number] [place] [address]- [address] 12 Apr, 2013 [facility] [place] [facility] [address] [id number] [place] [address]60 Apr, [facility] [place] [facility] [address] [id number] [place] [address] Apr, [facility] [place] [facility] [address] [id number] [place] [address] Apr, [facility] [place] [facility] [address] [id number] [place] [address]- [address]69 Apr, [facility] [place] [facility] [address] [id number] [place] [address]- [address] Apr, [facility] [place] [facility] [address] [id number] [place] [address] 47[address] Apr, [facility] [place] [facility] [address] [id number] [place] [address] Apr, [facility] [place] [facility] [address] [id number] [place] [address] Mar, [facility] [place] [facility] [address] [id number] [place] [address] Mar, [facility] [place] [facility] [address] [id number] [place] [address]- 4468 Mar, [facility] [place] [facility] [address] [id number] [place] [address] Feb, [facility] [place] [facility] [address] [id number] [place] [address] Feb, [facility] [place] [facility] [address] [id number] [place] [address]99 Feb, [facility] [place] [facility] [address] [id number] [place] [address] Feb, [facility] [place] [facility] [address] [id number] [place] [address]67 Feb, [facility] [place] [facility] [address] [id number] [place] [address] Feb, [facility] [address] [id number] [place] [address]- [address] Feb, [facility] [place] [facility] [address] [id number] [place] [address]- 47[address] Feb, [facility] [place] [facility] [address] [id number] [place] [address] Feb, [facility] [place] [facility] [address] [id number] [place] [address] Feb, [facility] [address] [id number] [place] [address] Jan, [facility] [place] [facility] [address] [id number] [place] [address] Jan, [facility] [place] [facility] [address] [id number] [place] [address] Jan, [facility] [place] [facility] [address] [id number] [place] [address] 2899 Jan, [facility] [place] [facility] [address] [id number] [place] [address] Jan, [facility] [place] [facility] [address] [id number] [place] [address] Jan, [facility] [place] [facility] [address] [id number] [place] [address]- 59[address] Jan, [facility] [place] [facility] [address] [id number] [place] [address]- 64[address] Jan, [facility] [place] [facility] [address] [id number] [place] [address]- [address] Jan, [facility] [place] [facility] [address] [id number] [place] [address] Jan, [facility] [place] [facility] [address] [id number] [place] [address]- [address] 17 Jan, 2013 [facility] [place] [facility] [address] [id number] [place] [address]702 17 Jan, 2013 [facility] [address] [id number] [place] [address]- [address]44 16 Jan, 2013 [facility] [address] [id number] [place] [address] Jan, [facility] [address] [id number] [place] [address] Jan, [facility] [address] [id number] [place] [address]- 9669 Jan, [facility] [address] [id number] [place] [address] Jan, [facility] [address] [id number] [place] [address] Jan, [facility] [address] [id number] [place] [address]- [address]35 Jan, [facility] [address] [id number] [place] [address]- 8570 Jan, [facility] [address] [id number] [place] [address]- [address] Jan, [facility] [address] [facility] [id number] [place] [address] Dec, [facility] [address] [id number] [place] [address] Dec, [facility] [place] [facility] [address] [id number], [place] [address] Dec, [facility] [place] [facility] [address] [id number] [place] [address] Dec, [facility] [place] [facility] [address] [id number] [place] [address]- 8973 Dec, [facility] [place] [facility] [address] [facility] [id number] [address] Dec, [facility] [place] [facility] [address] [address] [id number] [place] [address] Dec, [facility] [place] [facility] [address] [id number] [place] [address]14 Dec, [facility] [place] [facility] [address] [id number] [place] [address] Dec, [facility] [place] [facility] [address] [id number] [place] [address]29 Dec, [facility] [place] [facility] [address] [id number] [place] [address] 9485 Nov, [facility] [place] [facility] [address] [id number] [place] [address] 7208 Nov, [facility] [place] [facility] [address] [id number] [place] [address]- 9085 Nov, [facility] [place] [facility] [address] [id number] [place] [address] 1273 Nov, [facility] [place] [facility] [address] [id number] [place] [address] 4379 Nov, [facility] [place] [facility] [address] [id number] [place] [address] 0170 Nov, [facility] [place] [facility] [address] [id number] [place] [address]- 5781 Nov, [facility] [place] [facility] [address] [id number] [place] [address] 5048 Nov, [facility] [place] [facility] [address] [id number] [place] [address]- 2041 10 Nov, 2012 [facility] [place] [facility] [address] [id number] [place] [address] Nov, [facility] [place] [facility] [address] [id number] [place] Oct, [facility] [place] [facility] [address] [id number] [place] [address]- 9030 Oct, [facility] [address] [id number] [place] [address]- 0086 Oct, [facility] [place] [facility] [address] [id number] [place] [address]- 5566 Oct, [facility] [place] [facility] [address] [id number] [place] [address] 2546 Oct, [facility] [place] [facility] [address] [id number] [place] [address]- 4887 Sep, [facility] [place] [facility] [address] [id number] [place] [address]- 4417 Sep, [facility] [place] [facility] [address] [id number] [place] [address]- 8681 Aug, [facility] [place] [facility] [address] [id number] [place] [address]- 0159 Aug, [facility] [place] [facility] [address] [id number] [place] [address]- 8088 Aug, [facility] [place] [facility] [address] [id number] [place] [address]- 1607 Aug, [facility] [place] [facility] [address] [id number] [place] [address]- 5625 Aug, [facility] [place] [facility] [address] [id number] [address] 41[address] Aug, [facility] [place] [facility] [address] [id number], [place] [address] 2543 Aug, [facility] [place] [facility] [address] [id number] [place] [address]- 2427 Jul, [facility] [place] [facility] [address] [id number] [place] [address]- 6035 Jul, [facility] [place] [facility] [address] [id number] [place] [address]- 7097 June, [facility] [place] [facility] [address] [id number] [place] [address]- 1307 June, [facility] [address] [id number] [place] [address] 6503 June, [facility] [address] [id number] [place] [address] 3697 June, [facility] [address] [id number] [place] [address]- 0550 June, [facility] [address] [id number] [place] [address]- 8250 June, [facility] [address] [id number] [place] [address] 1490 June, [facility] [address] [id number] [place] [address]- 4814 June, [facility] [address] [id number] [place] [address]- 2335 June, [facility] [address] [id number] [place] [address]- 2453 June, [facility] [address] [id number] [place] [address] 8405 June, [facility] [address] [id number] [place] [address]- 0115 May, [facility] [address] [id number] [place] [address]- 9206 May, [facility] [address] [id number] [place] [address]- 4229 May, [facility] [address] [id number] [place] [address]- 8633 May, [facility] [address] [id number] [place] [address]- 1461 Apr, [facility] [address] [id number] [place] [address]- 1105 Apr, [facility] [address] [id number] [place] [address]- 3076 Apr, [facility] [address] [id number] [place] [address]- 9643 Mar, [facility] [address] [id number] [place] [address]- 0905 Mar, [facility] [address] [id number] [place] [address]- 2558 Feb, [facility] [address] [id number] [place] [address]- 6038 Feb, [facility] [address] [id number] [place] [address]- 6041 Feb, [facility] [address] [id number] [place] [address]- 1574 Feb, [facility] [address] [id number] [place] [address]- 1928 16 Feb, 2012 [facility] [address] [id number] [place] [address]- 4710 Feb, [facility] [address] [id number] [place] [address]- 0553 Feb, [facility] [address] [id number] [place] [address]- 9748 Jan, [facility] [address] [id number], [place] [address] 31 Jan, 2012 [facility] [place] [facility] [address] [id number] [place] [address]- 4070 28 Jan, 2012 [facility] [place] [facility] [address] [id number] [place] [address]- 2356 17 Jan, 2012 [facility] [place] [facility] [address] [id number] [place] [address]- 6457 17 Jan, 2012 [facility] [place] [facility] [address] [id number], [place] [address] 8379 Jan, [facility] [place] [facility] [address] [id number] [place] [address]- 9372 Jan, [facility] [place] [facility] [address] [id number] [place] [address]- 5472 Jan, [facility] [place] [facility] [address] [facility] [id number] [place] [address]- 5551 Jan, [facility] [place] [facility] [address] [id number] [place] [address]- 1017 Jan, [facility] [place] [facility] [address] [id number] [place] [address]- 4191 Jan, [facility] [place] [facility] [address] [facility] [id number] [place] [address]- 1507 Dec, [facility] [place] [facility] [id number] [place] [address]- 3265 Dec, [facility] [place] [facility] [address] [facility] [id number] [place] [address]- 8332 Dec, [facility] [place] [facility] [address] [facility] [id number] [place] [address]- 2910 Dec, [facility] [place] [facility] [address] [facility] [id number] [place] [address]- 3838 Nov, [facility] [place] [facility] [address] [facility] [id number] [place] [address]- 5200 Nov, [facility] [place] [facility] [address] [facility] [id number], [place] [address]- 2738 Nov, [facility] [place] [facility] [address] [id number] [place] [address]- 0292 Oct, [facility] [place] [facility] [address] [facility] [id number] [place] [address]- 9288 24 Oct, 2011 [facility] [place] [facility] [address] [facility] [id number] [place] [address]- 0622 21 Oct, 2011 [facility] [place] [facility] [address] [id number] [place] [address]- 8601 10 Oct, 2011 [facility] [place] [facility] [address] [id number] [place] [address]- 8726 07 Oct, 2011 [facility] [place] [facility] [address] [id number] [place] [address] 2546 04 Oct, 2011 [facility] [place] [facility] [address] [id number] [place] [address] 2546 04 Oct, 2011 [facility] [place] [facility] [address] [id number] [place] [address]- 1122 29 Sep, 2011 [facility] [place] [facility] [address] [id number] [place] [address]- 7886 Sep, [facility] [place] [facility] [address] [id number] [place] [address]- 3581 Sep, [facility] [place] [facility] [address] [id number] [place] [address]- 3117 Sep, [facility] [place] [facility] [address] [id number] [place] [address]- 1165 Sep, [facility] [place] [facility] [address] [id number] [place] [address]- 4841 30 Aug, 2011 [facility] [place] [facility] [address] [id number] [place] [address]- 0601 Aug, [facility] [place] [facility] [address] [id number] [place] [address]- 5476 17 Aug, 2011 [facility] [place] [facility] [address] [id number] [place] [address]- 2546 16 Aug, 2011 [facility] [place] [facility] [address] [id number] [place] [address]- 1306 13 Aug, 2011 [facility] [place] [facility] [address] [id number] [place] [address]- 2546 Aug, [facility] [place] [facility] [address] [id number] [place] [address]- 0419 Aug, [facility] [place] [facility] [address] [id number] [place] [address]- 5827 Jul, [facility] [place] [facility] [address] [id number] [place] [address]- 2136 Jul, [facility] [place] [facility] [address] [id number] [place] [address]- 7704 Jul, [facility] [place] [facility] [address] [id number] [place] [address]- 7276 Jul, [facility] [place] [facility] [address] [id number] [place] [address]- 8832 Jul, [facility] [place] [facility] [address] [id number] [place] [address]- 5923 Jul, [facility] [place] [facility] [address] [id number] [place] [address]- 5798 Jul, [facility] [place] [facility] [address] [id number] [place] [address]- 6271 Jul, [facility] [place] [facility] [address] [id number] [place] [address]- 2046 Jul, [facility] [place] [facility] [address] [id number] [place] [address]- 1430 June, [facility] [place] [facility] [address] [id number] [place] [address]- 8721 June, [facility] [place] [facility] [address] [id number] [place] [address]- 5633 June, [facility] [place] [facility] [address] [id number] [place] [address]- 8045 June, [facility] [place] [facility] [address] [id number] [place] [address]- 3508 June, [facility] [place] [facility] [address] [id number] [place] [address]- 6322 June, [facility] [place] [facility] [address] [id number] [place] [address]- 9892 10 Jun, 2011 [facility] [address] [id number] [place] [address]- 9678 June, [facility] [place] [facility] [address] [id number] [place] [address]- 8636 May, [facility] [address] [id number] [place] [address]- 4236 23 May, 2011 [facility] [place] [facility] [address] [id number] [place] [address]- 7420 May, [facility] [address] [id number] [place] [address]- 5955 May, [facility] [place] [facility] [address] [id number] [place] [address]- 0015 May, [facility] [address] [id number] [place] [address]- 0201 May, [facility] [place] [facility] [address] [id number] [place] [address]- 8715 May, [facility] [place] [facility] [address] [id number] [place] [address]- 0022 Apr, [facility] [place] [facility] [address] [id number] [place] [address]- 3019 Apr, [facility] [place] [facility] [address] [id number] [place] [address]- 9587 Apr, [facility] [place] [facility] [address] [id number] [place] [address]- 0227 Apr, [facility] [place] [facility] [address] [id number] [place] [address]- 2949 Apr, [facility] [place] [facility] [address] [id number] [place] [address]- 1996 Apr, [facility] [place] [facility] [address] [id number] [place] [address]- 6033 Apr, [facility] [place] [facility] [address] [id number] [place] [address]- 4116 Mar, [facility] [place] [facility] [address] [id number] [place] [address]- 9876 Mar, [facility] [place] [facility] [address] [id number] [place] [address] 2546 14 Mar, 2011 [facility] [place] [facility] [address] [id number] [place] [address] 2546 Mar, [facility] [place] [facility] [address] [id number] [place] [address] 2546 Mar, [facility] [place] [facility] [address] [id number] [place] [address]- 7816 Mar, [facility] [place] [facility] [address] [id number] [place] [address]- 6796 Mar, [facility] [place] [facility] [address] [id number] [place] [address]- 6293 Feb, [facility] [place] [facility] [address] [id number] [place] [address]- 5266 Feb, [facility] [place] [facility] [address] [id number] [place] [address]- 9876 Feb, [facility] [place] [facility] [address] [id number] [place] [address]- 9143 Feb, [facility] [place] [facility] [address] [id number] [place] [address]- 2226 Feb, [facility] [place] [facility] [address] [id number] [place] [address]- 9176 Feb, [facility] [place] [facility] [address] [id number] [place] [address]- 2326 Feb, [facility] [place] [facility] [address] [id number] [place] [address] 2546 Feb, [facility] [place] [facility] [address] [id number] [place] [address]- 5085 Feb, [facility] [address] [id number] [place] [address]- 5310 Feb, [facility] [place] [facility] [address] [id number] [place] [address]- 9123 Jan, [facility] [place] [facility] [address] [id number] [place] [address]- 8566 Jan, [facility] [place] [facility] [address] [id number] [place] [address]- 2366 Jan, [facility] [place] [facility] [address] [id number] [place] [address]- 0183 Jan, [facility] [place] [facility] [address] [id number] [place] [address]- 2973 Jan, [facility] [place] [facility] [address] [id number] [place] [address]- 3698 Jan, [facility] [place] [facility] [address] [id number] [place] [address]- 4115 Jan, [facility] [place] [facility] [address] [id number] [place] [address]- 5118 Jan, [facility] [place] [facility] [address] [id number] [place] [address]- 9362 Jan, [facility] [place] [facility] [address] [id number] [place] [address]- 8413 Jan, [facility] [place] [facility] [address] [id number] [place] [address]- 5520 Jan, [facility] [place] [facility] [address] [id number] [place] [address]- 8772 Dec, [facility] [place] [facility] [address] [id number] [place] [address]- 3882 Dec, [facility] [place] [facility] [address] [id number] [place] [address]- 3161 Dec, [facility] [place] [facility] [address] [id number] [place] [address]- 9981 16 Dec, 2010 [facility] [place] [facility] [address] [id number] [place] [address]- 1374 14 Dec, 2010 [facility] [place] [facility] [address] [id number] [place] [address]- 9983 Dec, [facility] [place] [facility] [address] [id number] [place] [address]- 2997 08 Dec, 2010 [facility] [place] [facility] [address] [id number] [place] [address]- 4894 Dec, [facility] [place] [facility] [address] [id number] [place] [address]- 8233 Dec, [facility] [place] [facility] [address] [id number] [place] [address]- 0638 Nov, [facility] [place] [facility] [address] [id number] [place] [address]- 0535 Nov, [facility] [place] [facility] [address] [id number] [place] [address]- 0846 Nov, [facility] [place] [facility] [address] [id number] [place] [address]- 4092 24 Nov, 2010 [facility] [place] [facility] [address] [id number] [place] [address]- 8531 24 Nov, 2010 [facility] [place] [facility] [address] [id number] [place] [address]- 2032 Nov, [facility] [place] [facility] [address] [id number] [place] [address]- 6190 Aug, [facility] [place] [facility] [address] [id number] [place] [address]- 9359 14 Feb, 2010 [facility] [place] [facility] [address] [id number] [place] [address]- 7816 14 Jan, 2010 [facility] [place] [facility] [address] [id number] [place] [address]- 5863 Jan, [facility] [address] [id number] [address]87 Jan, [facility] [id number] 9447 Jan, [facility] [id number] [address]- 3693 Jan, [facility] [id number] [address]- 1564 Dec, [facility] [id number] [address]- 5552 Dec, [facility] [id number] [place] [address]- 0743 Dec, [facility] [id number] [address]- 4201 Dec, [facility] [id number] [address]- 8273 Nov, [facility] [id number] [address]- 6177 Nov, [facility] [id number] [address]- 3970 Nov, IMMUNIZATIONS No Known Immunizations SOCIAL HISTORY Never Assessed REASON FOR VISIT Controlled Med Refill 10/16 PLAN OF CARE VITAL SIGNS MEDICATIONS Medication Instructions Dosage Frequency Start Date End Date Duration Status Klonopin 1 MG Orally 3 times a day 1 tablet 8h 30 days Active Fentanyl 50 MCG/HR Transdermal 48 hrs 1 patch to skin Oct, 30 days Active RESULTS No Results PROCEDURES [...]
--- OUTSIDE RECORDS SUMMARY | 2018-01-13 20:42 | XMS REPORT ---
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 Active 903147542 Problem Hypertension I10 Active 25047171 Problem Arthritis M19.90 Active 4770515 Problem 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 Active 92848346 Problem Anxiety F41.9 Active 50227919 Problem Unspecified episodic mood disorder F39 Active 91033664 Problem Left hip pain M25.552 Active 99078348 ALLERGIES No Information ENCOUNTERS Encounter Location Date Diagnosis [facility] [id number] [address] Sep, Gastroesophageal reflux disease, esophagitis presence not specified K21.9 and Other chronic pain G89.29 [facility] [id number], [place] [address] Sep, [facility] [id number] [place] [address] 96961- 0046 Sep, [facility] [id number] [place] [address] 66755- 6419 Sep, Chronic hepatitis C without hepatic coma B18.2 [facility] [id number] [place] [address] 84413- 6878 Sep, 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 [facility] [id number] [place] [address] 10312- 3057 Sep, Arthritis M19.90 [facility] [id number] [place] [address] 46583- 3072 Sep, [facility] [id number] [place] [address] 79920- 8988 Sep, Unspecified episodic mood disorder F39 [facility] [id number] [place] [address] 06716- 7553 Aug, [facility] [id number] [place] [address] [id number] Aug, [facility] [id number] [place] [address] 59772- 8260 Aug, Arthritis M19.90 [facility] [id number] [place] [address] 33341- 6814 Aug, [facility] [id number] [place] [address] 05970- 0546 Aug, Obesity (BMI 30.0-34.9) E66.9 ; Unspecified episodic mood disorder F39 and Hypertension I10 [facility] [id number] [place] [address] 19157- 2823 Aug, Unspecified episodic mood disorder F39 [facility] [id number] [place] [address] 83206- 0400 Aug, [facility] [id number] [place] [address] 88629- 5843 Jul, Unspecified episodic mood disorder F39 [facility] [address], [place] [address] 06[address] Jul, [facility] [address] [place] [address] 89917- 2967 Jul, Arthritis M19.90 [facility] [id number] [place] [address] 02895- 9512 Jul, Left hip pain M25.552 ; Hypertension I10 ; Other obesity due to excess calories E66.09 and Body mass index (BMI) of 34.0-34.9 in adult Z68.34 [facility] [id number] [place] [address] 95925- 3742 Jul, Unspecified episodic mood disorder F39 [facility] [id number] [place] [address] 85485- 4153 June, Gastroesophageal reflux disease, esophagitis presence not specified K21.9 [facility] [address], [place] [address] 78[address] June, [facility] [id number] [place] [address] 99607- 7039 June, [facility] [id number] [place] [address] 46157- 2254 June, Arthritis M19.90 [facility] [address], [place] [address] June, [facility] [address], [place] [address] 0674 June, [facility] [id number] [place] [address] 16793- 7304 June, Unspecified episodic mood disorder F39 [facility] [address], [place] [address] 2360 May, Unspecified episodic mood disorder F39 [facility] [id number] [place] [address] 99715- 3208 May, [place] [address] 27[address]- 5591 May, Arthritis M19.90 [facility] [id number] [place] [address] 97855 -3412 May, Dysuria R30.0 ; Abscess L02.91 and Acute cystitis without hematuria N30.00 [place] [id number] [place] [address] 50157- 0719 May, 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 ; Unspecified episodic mood disorder F39 ; Combined drug dependence excluding opioids, 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 ; Anxiety F41.9 and Other psychoactive substance dependence, 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 [place] [id number] [place] [address] 48076- 2366 May, [place] [id number] [place] [address] 87521- 2290 May, 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 ; Unspecified episodic mood disorder F39 ; Combined drug dependence excluding opioids, 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 ; Other psychoactive substance dependence, 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 and Anxiety F41.9 [place] [id number] [place] [address] 69617- 6297 May, Other chronic pain G89.29 ; Left hip pain M25.552 ; Hypertension I10 ; 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, 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 and Unspecified episodic mood disorder F39 [facility] [address] [place] [address] 65372- 7755 Apr, [facility] [id number] [place] [address] 03505 -5977 Apr, Neck pain M54.2 ; Left hip pain M25.552 and Fall, initial encounter W19.XXXA [place] [address] 60049- 4260 Apr, Unspecified episodic mood disorder F39 ; Combined drug dependence excluding opioids, 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 ; Anxiety F41.9 ; Other psychoactive substance dependence, 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 and 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 [facility] [address] [place] [address] 58524- 2730 Apr, [facility] [id number] [place] [address] 49453- 7950 Apr, Arthritis M19.90 and Unspecified episodic mood disorder F39 [facility] [id number] [place] [address] 06471- 2161 Apr, Unspecified episodic mood disorder F39 [facility] [id number] [place] [address] 64819- 3119 Apr, [facility] [id number] [place] [address] 23416- 2260 Apr, [facility] [id number] [place] [address] 26743- 2931 Apr, Unspecified episodic mood disorder F39 ; Combined drug dependence excluding opioids, 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 ; Anxiety F41.9 ; Other psychoactive substance dependence, 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 and 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 [facility] [address] [place] [address] 47921- 0108 Mar, Unspecified episodic mood disorder F39 [facility] [id number] [place] [address] 14420- 8226 Mar, Gastroesophageal reflux disease, esophagitis presence not specified K21.9 [facility] [id number] [place] [address] 32205- 5945 Mar, Arthritis M19.90 and Unspecified episodic mood disorder F39 [facility] [id number] [place] [address] 36106- 7839 Feb, [facility] [id number] [place] [address] 70576- 7669 Feb, [facility] [id number] [place] [address] 83919- 6613 Feb, [facility] [id number] [place] [address] 96200- 9179 Feb, Arthritis M19.90 [facility] [id number] [place] [address] 63127- 0501 Feb, Non-pressure chronic ulcer of right calf, 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 ; Unspecified episodic mood disorder F39 and Left hip pain M25.552 [place] [id number] [place] [address] 04969- 6432 Feb, [place] [id number] [place] [address] 63858- 2436 Feb, [place] [id number] [place] [address] 28452- 4224 Jan, Arthritis M19.90 [place] [id number] [place] [address] 58506- 1655 Jan, Left hip pain M25.552 and Non-pressure chronic ulcer of right calf, 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 [place] [id number] [place] [address] 25403- 0672 Jan, Chronic hepatitis C without hepatic coma B18.2 [place] [id number] [place] [address] 63799- 3508 Jan, Encounter for immunization Z23 ; Venous insufficiency ( chronic) (peripheral) I87.2 ; Non-pressure chronic ulcer of unspecified calf limited to breakdown of skin L97.201 and Gastroesophageal reflux disease, esophagitis presence not specified K21.9 [place] [id number] [place] [address] 38172- 0316 Jan, [place] [id number] [place] [address] 17993- 0979 Jan, Chronic hepatitis C without hepatic coma B18.2 and Encounter for immunization Z23 [facility] [id number] [place] [address] 10264- 7599 Jan, Arthritis M19.90 [facility] [id number] [place] [address] 74779- 0262 Jan, [facility] [id number] [place] [address] 52089- 1320 Dec, [facility] [id number] [place] [address] 49985- 0503 Dec, Unspecified episodic mood disorder F39 [facility] [address] 97615- 5190 Dec, Arthritis M19.90 [facility] [id number] [place] [address] 64466- 7171 Dec, Arthritis M19.90 [facility] [id number] [place] [address] 10384- 3660 Nov, [facility] [id number] [place] [address] 09691- 6749 Nov, [facility] [id number] [place] [address] 19702- 0271 Nov, Other psychoactive substance dependence, 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 ; 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, 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 and Chronic hepatitis C without hepatic coma B18.2 [facility] [id number] [place] [address] 92888- 2491 Nov, Arthritis M19.90 [facility] [id number] [place] [address] 46667 -6158 Oct, Partial thickness burn of abdomen, initial encounter T21.22XA [facility] [id number] [place] [address] 02001- 9530 14 Oct, 2016 [facility] [address] 58840- 3639 Sep, Arthritis M19.90 [facility] [id number], [place] [address]- 1726 Sep, [facility] [id number] [place] [address] 23357- 0096 Sep, [facility] [id number] [place] [address] 20481- 9916 Sep, Unspecified episodic mood disorder F39 ; Chronic hepatitis C without hepatic coma B18.2 and Left hip pain M25.552 [facility] [id number], [place] [address]- 1056 Sep, Arthritis M19.90 and Left hip pain M25.552 [facility] [id number] [place] [address] 05481- 4870 Aug, [facility] [id number] [place] [address] 27094- 2229 Aug, [facility] [id number] [place] [address] 55814- 0582 Aug, Chronic hepatitis C without hepatic coma B18.2 [facility] [address], [place] [address]- 4169 Aug, [facility] [id number], [place] [address]- 2432 Aug, Chronic hepatitis C without hepatic coma B18.2 [facility] [id number], [place] [address]- 5355 Aug, 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, 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552 and Decubitus ulcer of sacral region, stage 1 L89.151 [facility] [id number] [place] [address] 88720- 1959 Apr, [facility] [id number] [place] [address] 48929- 1018 Apr, [facility] [id number] [place] [address] 77130- 9224 Feb, [facility] [id number] [place] [address] 12579- 0398 Dec, Anxiety F41.9 ; Combined drug dependence excluding opioids, 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 and Unspecified episodic mood disorder F39 [facility] [id number] [place] [address] 46789- 1489 Dec, [facility] [id number] [place] [address] 70710- 9093 18 Nov, 2015 [facility] [id number] [place] [address] 42070- 9269 Nov, [facility] [id number] [place] [address] 07033- 2882 10 Nov, 2015 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 and Anxiety F41.9 [facility] [address] [place] [address] 13353- 8341 21 Oct, 2015 [facility] [id number] [place] [address] 59084 -5788 14 Oct, 2015 Open wound of left thigh, initial encounter S71.102A [facility] [id number] [place] [address] 18142- 4742 Oct, [facility] [id number] [place] [address] 59254- 4041 Sep, Unspecified episodic mood disorder F39 ; Other disorder of impulse control 312.39 ; Combined drug dependence excluding opioids, 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 and Anxiety F41.9 [facility] [id number] [place] [address] 87372- 6550 Sep, Other disorder of impulse control 312.39 ; Combined drug dependence excluding opioids, 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 ; Anxiety F41.9 and Unspecified episodic mood disorder F39 [facility] [id number] [place] [address] 97386- 2742 Sep, Other chronic pain G89.29 [facility] [id number] [place] [address] 18198- 1016 Sep, [facility] [id number] [place] [address] 82592- 6683 Sep, [facility] [id number] [place] [address] 33072- 7576 Aug, [facility] [id number] [place] [address] 34090- 2382 Aug, [facility] [address], [place] [address]- 5169 Aug, [facility] [id number] [place] [address] 27606- 3112 Jul, [facility] [id number] [place] [address] 71764 2546 Jul, [facility] [id number] [place] [address] 36884 2546 Jul, [facility] [address] [place] [address] 15824- 3590 Jul, Arthritis M19.90 ; Chronic hepatitis C without hepatic coma B18.2 and Left hip pain M25.552 [facility] [address] [place] [address] 98191- 8511 Jul, Left knee pain M25.562 [facility] [id number] [place] [address] 184937- 9253 Jul, Combined drug dependence excluding opioids, 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 ; Anxiety F41.9 ; Other disorder of impulse control 312.39 and Unspecified episodic mood disorder F39 [facility] [id number] [place] [address] 72212- 1117 Jul, Left knee pain M25.562 [facility] [id number] [place] [address] 43895- 7568 Jul, Left knee pain M25.562 and Left hip pain M25.552 [facility] [id number] [place] [address] 72825- 3171 Jul, [facility] [id number] [place] [address] 78209- 1026 June, [facility] [id number] [place] [address] 68630- 9797 June, Combinations of drug dependence excluding opioid type drug, unspecified abuse 304.80 ; Other disorder of impulse control 312.39 ; Unspecified episodic mood disorder F39 and Anxiety F41.9 [facility] [id number] [place] [address] 77832- 9779 June, Other fatigue R53.83 ; Headache R51 and Left knee pain M25.562 [facility] [address] [place] [address] 34003- 5988 June, Unspecified episodic mood disorder F39 ; Combinations of drug dependence excluding opioid type drug, unspecified abuse 304.80 ; Other disorder of impulse control 312.39 and Anxiety F41.9 [facility] [address] [place] [address] 61935- 1732 June, Anxiety F41.9 [facility] [address], [place] [address]- 7985 17 Jun, 2015 Pain in left knee M25.562 [facility] [id number] [place] [address] 78539- 4520 June, Anxiety F41.9 and Combinations of drug dependence excluding opioid type drug, unspecified abuse 304.80 [facility] [id number] [place] [address] 84977- 7966 June, Unspecified episodic mood disorder 296.90 ; Combinations of drug dependence excluding opioid type drug, unspecified abuse 304.80 and Other disorder of impulse control 312.39 [place] [id number] [place] [address] 79520- 5257 June, Anxiety F41.9 and Unspecified episodic mood disorder 296.90 [place] [id number] [place] [address] 15363- 1509 May, Arthritis M19.90 [facility] [id number] [place] [address] 23816- 4699 May, Arthritis M19.90 [facility] [id number] [place] [address] 63595- 5867 May, Anxiety F41.9 ; Combinations of drug dependence excluding opioid type drug, unspecified abuse 304.80 and Other disorder of impulse control 312.39 [facility] [id number] [place] [address] 19517- 8320 18 May, 2015 Left knee pain M25.562 [facility] [address] [place] [address] 28358- 6380 14 May, 2015 Arthritis M19.90 [facility] [id number] [place] [address] 72922- 9359 May, [facility] [address] [place] [address] 66691- 1222 May, Anxiety F41.9 ; Unspecified episodic mood disorder 296.90 ; Combinations of drug dependence excluding opioid type drug, unspecified abuse 304.80 and Other disorder of impulse control 312.39 [place] [address] [place] [address] 76924- 9135 May, Left knee pain M25.562 [place] [id number] [place] [address] 60109- 7450 May, Left knee pain M25.562 ; Combinations of drug dependence excluding opioid type drug, unspecified abuse 304.80 ; Other disorder of impulse control 312.39 ; Fibromyalgia M79.7 ; Hypertension I10 ; Unspecified episodic mood disorder 296.90 and Left hip pain M25.552 [id number] [place] [address] 501332- 1137 May, Unspecified episodic mood disorder 296.90 ; Other disorder of impulse control 312.39 ; Combinations of drug dependence excluding opioid type drug, unspecified abuse 304.80 and Anxiety F41.9 [address] [id number] [place] [address] 72320- 2859 May, Left knee pain M25.562 ; Combinations of drug dependence excluding opioid type drug, unspecified abuse 304.80 ; Other disorder of impulse control 312.39 ; Fibromyalgia M79.7 ; Hypertension I10 ; Unspecified episodic mood disorder 296.90 and Left hip pain M25.552 [place] [address] [place] [address] 60728- 1164 May, Anxiety F41.9 ; Unspecified episodic mood disorder 296.90 ; Other disorder of impulse control 312.39 and Combinations of drug dependence excluding opioid type drug, unspecified abuse 304.80 [place] [address] [place] [address] 53992- 2604 Apr, 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 and 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, implants and grafts, initial encounter T84.82XA [place] [address] [place] [address] 54064- 5359 Apr, Anxiety F41.9 ; Unspecified episodic mood disorder 296.90 ; Combinations of drug dependence excluding opioid type drug, unspecified abuse 304.80 and Other disorder of impulse control 312.39 [facility] [address] [place] [address]- 5780 Apr, Arthritis M19.90 [facility] [address] [place] [address] 13554- 5484 Apr, Anxiety F41.9 ; Unspecified episodic mood disorder 296.90 ; Combinations of drug dependence excluding opioid type drug, unspecified abuse 304.80 and Other disorder of impulse control 312.39 [facility] [address] [place] [address] 80376- 4994 17 Apr, 2015 Arthritis M19.90 [facility] [id number] [place] [address] 18216- 6637 15 Apr, 2015 [facility] [id number] [place] [address] 02862- 9111 Apr, [facility] [id number] [place] [address] 68662- 6942 Apr, Unspecified episodic mood disorder 296.90 ; Combinations of drug dependence excluding opioid type drug, unspecified abuse 304.80 ; Other disorder of impulse control 312.39 and Anxiety F41.9 [facility] [address] [place] [address] 18429 -4644 Apr, Left knee pain M25.562 [facility] [address] [place] [address] 83028- 7386 Apr, [facility] [facility] [id number] [place] [address] 70073- 3330 Mar, Unspecified episodic mood disorder 296.90 ; Anxiety F41.9 ; Other disorder of impulse control 312.39 and Combinations of drug dependence excluding opioid type drug, unspecified abuse 304.80 [facility] [id number] [place] [address] 70685- 5693 Mar, Hyperpigmentation L81.9 [facility] [id number] [place] [address] 68237- 4560 22 Mar, 2015 Arthritis M19.90 and Anxiety F41.9 [place] [id number] [place] [address] 38751- 9014 22 Mar, 2015 Unspecified episodic mood disorder F39 ; Combined drug dependence excluding opioids, 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 ; 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 and Anxiety F41.9 [address] [place] [id number] [place] [address] 16456- 6575 12 Mar, 2015 Well woman exam Z01.419 ; Other fatigue R53.83 ; Hot flashes N95.1 ; Depression, unspecified depression type F32.9 and Body mass index (BMI) of 23.0-23.9 in adult Z68.[address] 46727- 6620 11 Mar, 2015 Unspecified episodic mood disorder 296.90 ; Other disorder of impulse control 312.39 and Anxiety F41.9 [place] [id number] [place] [address] 40380- 5478 11 Mar, 2015 Well woman exam Z01.419 [...] of breast Z12.39 and Limited mobility Z74.09 [address] [id number] [place] [address] 71552- 1645 10 Mar, 2015 [place] [address] 76314- 6211 Mar, [facility] [id number] [place] [address] 40296- 1412 Mar, [facility] [id number] [place] [address] 97408- 7547 Mar, Other specified complication of internal orthopedic prosthetic devices, implants and grafts, initial encounter T84.89XA ; Fibromyalgia M79.7 ; Hypertension I10 ; Anemia D64.9 ; Insomnia G47.00 ; Anxiety F41.9 ; Arthritis M19.90 and Migraine G43.909 [facility] [address] 28240- 4353 Mar, [facility] [address] 51345- 8436 Feb, [facility] [id number] [place] [address] 53918- 5485 Feb, Arthritis M19.90 and Anxiety F41.9 [facility] [id number] [place] [address] 55760- 6175 Feb, [facility] [address] 56509- 3149 Feb, [facility] [id number] [place] [address] 14984- 6496 Feb, [facility] [id number] [place] [address] 96483- 0586 Feb, [facility] [id number] [place] [address] 80763- 0124 Feb, Anxiety F41.9 [facility] [address] 47015- 3378 Feb, [facility] [id number] [place] [address] 09940- 0028 Feb, [facility] [id number] [place] [address] 88033- 2249 Feb, 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 and Fibromyalgia M79.7 [facility] [id number] [place] [address] 74642- 2412 Feb, [facility] [address] [address] 9230 Jan, [facility] [id number] [place] [address] 51284- 5944 Jan, [facility] [id number] [place] [address] 25910- 5093 Jan, [facility] [id number] [place] [address] 92614- 3576 Jan, [facility] [id number] [place] [address] 86438- 3334 Jan, [facility] [id number] [place] [address] 80247- 9335 Jan, [facility] [id number] [place] [address] 38751- 3186 Jan, [facility] [id number] [place] [address] 10310- 6666 Jan, [facility] [id number] [place] [address] 96453- 0609 Dec, [facility] [id number] [place] [address] 33682- 7076 Dec, Left knee pain M25.562 [facility] [id number] [place] [address] 25565- 3403 Dec, Left knee pain M25.562 [facility] [id number] [place] [address] 35267- 1141 Dec, Fibromyalgia M79.7 ; Hypertension I10 and Arthritis M19.90 [facility] [id number] [place] [address] 61415- 8875 Dec, [facility] [address] [id number], [place] [address] 1984 Dec, [facility] [place] [facility] [address] [facility] [id number], [place] [address]- 6917 Dec, [facility] [place] [facility] [address] [facility] [id number], [place] [address]- 0804 Dec, [facility] [place] [facility] [address] [facility] [id number] [place] [address] 94824- 9702 Nov, [facility] [place] [facility] [address] [id number], [place] [address]- 8918 Nov, [facility] [place] [facility] [id number] [place] [address], [place] [address]- 6643 Nov, [facility] [place] [facility] [id number] [place] [address] 66157- 0177 Nov, Hypertension I10 [facility] [place] [facility] [address] [facility] [id number], [place] [address]- 1124 23 Oct, 2014 [facility] [place] [facility] [address] [facility] [id number], [place] [address]- 1183 17 Oct, 2014 [facility] [place] [facility] [address] [id number], [place] [address]- 0985 04 Oct, 2014 [facility] [place] [facility] [address] [facility] [id number], [place] [address]- 1383 Oct, [facility] [place] [facility] [address] [facility] [id number], [place] [address]- 7400 Oct, [facility] [place] [facility] [address] [facility] [id number], [place] [address]- 5376 Sep, [facility] [place] [facility] [address] [facility] [id number], [place] [address]- 8403 Sep, [facility] [place] [facility] [address] [facility] [id number], [place] [address]- 9632 Sep, Hip pain associated with recalled total hip arthroplasty hardware 996.77 [facility] [place] [facility] [address] [id number] [place] [address]- 5731 Sep, [facility] [place] [facility] [address] [id number] [place] [address]- 7566 Sep, [facility] [place] [facility] [address] [id number] [place] [address]- 0449 Sep, [facility] [place] [facility] [address] [id number] [place] [address]- 9842 Aug, [facility] [place] [facility] [address] [id number] [place] [address]- 2748 Jul, [facility] [place] [facility] [address] [id number] [place] [address]- 5031 June, [facility] [place] [facility] [address] [id number] [place] [address]- 8932 June, [facility] [place] [facility] [address] [id number] [place] [address]- 5254 June, [facility] [place] [facility] [address] [id number] [place] [address]- 2789 June, [facility] [place] [facility] [address] [id number] [place] [address]- 7298 June, [facility] [place] [facility] [address] [id number] [place] [address]- 2265 June, [facility] [place] [facility] [address] [id number] [place] [address]- 6231 May, [facility] [place] [facility] [address] [id number] [place] [address]- 8404 May, [facility] [place] [facility] [address] [id number] [place] [address]- 5799 May, [facility] [place] [facility] [address] [id number] [place] [address]- 4777 Apr, [facility] [place] [facility] [address] [id number] [place] [address]- 5159 30 Apr, 2014 [facility] [place] [facility] [address] [id number] [place] [address]- 6050 Apr, [facility] [place] [facility] [address] [id number] [place] [address]- 5692 19 Apr, 2014 [facility] [place] [facility] [address] [facility] [id number] [place] [address]- 2149 Apr, [facility] [place] [facility] [address] [id number] [place] [address]- 0281 13 Apr, 2014 [facility] [place] [facility] [address] [id number] [place] [address]- 6779 Apr, [facility] [place] [facility] [address] [id number] [place] [address]- 1877 Apr, [facility] [place] [facility] [address] [facility] [id number] [place] [address]- 3713 Apr, [facility] [place] [facility] [address] [id number] [place] [address]- 0161 Apr, [facility] [place] [facility] [address] [facility] [id number] [place] [address]- 1913 Apr, [facility] [place] [facility] [address] [facility] [id number] [place] [address]- 2281 Mar, 2014 [facility] [place] [facility] [address] [facility] [id number] [place] [address]- 3152 Mar, 2014 [facility] [place] [facility] [address] [id number] [place] [address]- 2805 16 Mar, 2014 [facility] [place] [facility] [address] [id number] [place] [address]- 9700 16 Mar, 2014 [facility] [place] [facility] [address] [facility] [id number] [place] [address]- 3187 Mar, 2014 [facility] [place] [facility] [address] [facility] [id number] [place] [address]- 2787 10 Mar, 2014 [facility] [place] [facility] [address] [id number] [place] [address]- 4408 15 Feb, 2014 [facility] [place] [facility] [address] [id number] [place] [address]- 8047 Feb, [facility] [place] [facility] [address] [id number] [place] [address]- 7687 Feb, [facility] [place] [facility] [address] [id number] [place] [address]- 2842 Feb, [facility] [place] [facility] [address] [id number] [place] [address]- 2741 Jan, [facility] [place] [facility] [address] [id number] [place] [address]- 1389 Jan, [facility] [place] [facility] [address] [id number] [place] [address]- 8326 Jan, [facility] [place] [facility] [address] [id number] [place] [address]- 1696 Jan, [facility] [place] [facility] [address] [id number] [place] [address]- 5637 Dec, [facility] [place] [facility] [address] [id number] [place] [address]- 3254 Dec, [facility] [place] [facility] [address] [id number] [place] [address]- 3429 Dec, [facility] [place] [facility] [address] [id number] [place] [address]- 1979 Dec, [facility] [place] [facility] [address] [id number] [place] [address]- 2634 Dec, [facility] [place] [facility] [address] [id number] [place] [address]- 3193 Dec, [facility] [place] [facility] [address] [id number] [place] [address]- 7937 Dec, [facility] [place] [facility] [address] [id number] [place] [address]- 0353 10 Dec, 2013 [facility] [place] [facility] [address] [id number] [place] [address]- 4821 10 Dec, 2013 [facility] [place] [facility] [address] [id number] [place] [address]- 1701 07 Dec, 2013 [facility] [place] [facility] [address] [id number] [place] [address]- 8093 Dec, [facility] [place] [facility] [address] [id number] [place] [address]- 7454 31 Nov, 2013 [facility] [place] [facility] [address] [id number] [place] [address]- 9655 28 Nov, 2013 [facility] [place] [facility] [address] [id number] [place] [address]- 5501 28 Nov, 2013 [facility] [place] [facility] [address] [id number] [place] [address]- 6544 17 Nov, 2013 [facility] [place] [facility] [address] [id number] [place] [address]- 4410 17 Nov, 2013 [facility] [place] [facility] [address] [id number] [place] [address]- 0412 15 Nov, 2013 [facility] [place] [facility] [address] [id number] [place] [address]- 4193 15 Nov, 2013 [facility] [place] [facility] [address] [id number], [place] [address]- 1907 15 Nov, 2013 [facility] [place] [facility] [address] [id number], [place] [address]- 9876 15 Nov, 2013 [facility] [place] [facility] [address] [id number] [place] [address]- 8502 14 Nov, 2013 [facility] [place] [facility] [address] [id number] [place] [address]- 4387 14 Nov, 2013 [facility] [place] [facility] [address] [id number] [place] [address]- 4566 14 Nov, 2013 [facility] [place] [facility] [address] [id number] [place] [address]- 6556 14 Nov, 2013 [facility] [place] [facility] [address] [id number] [place] [address]- 7053 13 Nov, 2013 [facility] [place] [facility] [address] [id number] [place] [address]- 7930 13 Nov, 2013 [facility] [place] [facility] [address] [id number] [place] [address]- 0525 11 Nov, 2013 [facility] [place] [facility] [address] [id number] [place] [address]- 0798 11 Nov, 2013 [facility] [place] [facility] [address] [id number] [place] [address]- 3594 07 Nov, 2013 [facility] [place] [facility] [address] [id number] [place] [address]- 1323 07 Nov, 2013 [facility] [place] [facility] [address] [id number] [place] [address]- 5311 07 Nov, 2013 [facility] [place] [facility] [address] [id number] [place] [address]- 9700 07 Nov, 2013 [facility] [place] [facility] [address] [id number] [place] [address]- 1561 30 Sep, 2013 [facility] [place] [facility] [address] [id number] [place] [address]- 4697 30 Sep, 2013 [facility] [place] [facility] [address] [id number] [place] [address]- 5795 26 Sep, 2013 [facility] [place] [facility] [address] [id number] [place] [address]- 2549 26 Sep, 2013 [facility] [place] [facility] [address] [id number] [place] [address]- 0598 22 Sep, 2013 [facility] [place] [facility] [address] [id number] [place] [address]- 7502 22 Sep, 2013 [facility] [place] [facility] [address] [id number] [place] [address]- 1212 18 Oct, 2013 [facility] [place] [facility] [address] [id number] [place] [address]- 1263 18 Oct, 2013 [facility] [place] [facility] [address] [id number] [place] [address]- 0290 Oct, [facility] [place] [facility] [address] [id number] [place] [address]- 0714 Oct, [facility] [place] [facility] [address] [id number] [place] [address]- 0401 Oct, [facility] [place] [facility] [address] [id number] [place] [address]- 0033 Oct, [facility] [place] [facility] [address] [id number] [place] [address]- 4558 Oct, [facility] [place] [facility] [address] [id number] [place] [address]- 0429 Oct, [facility] [place] [facility] [address] [id number] [place] [address]- 5150 Sep, [facility] [place] [facility] [address] [id number] [place] [address]- 9939 Sep, [facility] [place] [facility] [address] [id number] [place] [address]- 3552 Sep, [facility] [place] [facility] [address] [id number] [place] [address]- 2689 Sep, [facility] [place] [facility] [address] [id number] [place] [address]- 9737 Sep, [facility] [place] [facility] [address] [id number] [place] [address]- 1687 Sep, [facility] [place] [facility] [address] [id number] [place] [address]- 3008 Sep, [facility] [place] [facility] [address] [id number] [place] [address]- 6281 Sep, [facility] [place] [facility] [address] [id number] [place] [address]- 0396 Sep, [facility] [place] [facility] [address] [id number] [place] [address]- 1694 Sep, [facility] [place] [facility] [address] [id number] [place] [address]- 6335 Sep, [facility] [place] [facility] [address] [id number] [place] [address]- 2322 Sep, [facility] [place] [facility] [address] [id number] [place] [address]- 5754 Sep, [facility] [place] [facility] [address] [id number] [place] [address]- 7674 Sep, [facility] [place] [facility] [address] [id number] [place] [address]- 4828 Sep, [facility] [place] [facility] [address] [id number] [place] [address]- 6995 Sep, [facility] [place] [facility] [address] [id number] [place] [address]- 5600 Sep, [facility] [place] [facility] [address] [id number] [place] [address]- 7204 Sep, [facility] [place] [facility] [address] [id number] [place] [address]- 5036 Aug, [facility] [place] [facility] [address] [id number] [place] [address]- 7569 Aug, [facility] [place] [facility] [address] [id number] [place] [address]- 3952 Aug, [facility] [place] [facility] [address] [id number] [place] [address]- 1296 Aug, [facility] [place] [facility] [address] [id number] [place] [address]- 2387 Aug, [facility] [place] [facility] [address] [id number] [place] [address]- 3580 Aug, [facility] [place] [facility] [address] [id number] [place] [address]- 1986 Jul, [facility] [address] [id number] [place] [address]- 6593 Jul, [facility] [place] [facility] [address] [id number] [place] [address]- 5434 Jul, [facility] [address] [id number] [place] [address]- 5923 Jul, [facility] [place] [facility] [address] [id number] [place] [address]- 6625 June, [facility] [address] [id number] [place] [address]- 2101 June, [facility] [address] [id number] [place] [address]- 8727 June, [facility] [place] [facility] [address] [id number] [place] [address]- 0193 June, [facility] [address] [id number] [place] [address]- 7434 June, [facility] [place] [facility] [address] [id number] [place] [address]- 0537 June, [facility] [address] [id number] [place] [address]- 1684 June, [facility] [place] [facility] [address] [id number] [place] [address]- 8513 May, [facility] [place] [facility] [address] [id number] [place] [address]- 1455 May, [facility] [place] [facility] [address] [id number] [place] [address]- 7071 May, [facility] [place] [facility] [address] [id number] [place] [address]- 6504 May, [facility] [place] [facility] [address] [id number] [place] [address]- 2010 17 May, 2013 [facility] [place] [facility] [address] [id number] [place] [address]- 2138 17 May, 2013 [facility] [place] [facility] [address] [id number] [place] [address]- 7857 31 Apr, 2013 [facility] [place] [facility] [address] [id number] [place] [address]- 1662 31 Apr, 2013 [facility] [place] [facility] [address] [id number] [place] [address]- 8409 28 Apr, 2013 [facility] [place] [facility] [address] [id number] [place] [address]- 4086 28 Apr, 2013 [facility] [place] [facility] [address] [id number] [place] [address]- 4434 14 Apr, 2013 [facility] [place] [facility] [address] [id number] [place] [address]- 7723 14 Apr, 2013 [facility] [place] [facility] [address] [id number] [place] [address]- 8109 12 Apr, 2013 [facility] [place] [facility] [address] [id number] [place] [address] Apr, [facility] [place] [facility] [address] [id number] [place] [address] 10 Apr, 2013 [facility] [place] [facility] [address] [id number] [place] [address] 10 Apr, 2013 [facility] [place] [facility] [address] [id number] [place] [address] 04 Apr, 2013 [facility] [place] [facility] [address] [id number] [place] [address] 04 Apr, 2013 [facility] [place] [facility] [address] [id number] [place] [address] 03 Apr, 2013 [facility] [place] [facility] [address] [id number] [place] [address] 03 Apr, 2013 [facility] [place] [facility] [address] [id number] [place] [address] Mar, [facility] [address] [id number] [place] [address] Mar, [facility] [place] [facility] [address] [id number] [place] [address] Mar, [facility] [place] [facility] [address] [id number] [place] [address] Feb, [facility] [place] [facility] [address] [id number] [place] [address] Feb, [facility] [place] [facility] [address] [id number] [place] [address] Feb, [facility] [place] [facility] [address] [id number] [place] [address] Feb, [facility] [place] [facility] [address] [id number] [place] [address] Feb, [facility] [place] [facility] [address] [id number] [place] [address] Feb, [facility] [place] [facility] [address] [id number] [place] [address] Feb, [facility] [place] [facility] [address] [facility] [id number] [place] [address] Feb, [facility] [place] [facility] [address] [id number] [place] [address] Feb, [facility] [place] [facility] [address] [id number] [place] [address] Feb, [facility] [place] [facility] [address] [id number] [place] [address] Jan, [facility] [place] [facility] [address] [id number] [place] [address] Jan, [facility] [place] [facility] [address] [id number] [place] [address] Jan, [facility] [place] [facility] [address] [id number] [place] [address] 56[address] Jan, [facility] [address] [id number] [place] [address] Jan, [facility] [place] [facility] [address] [id number] [place] [address] Jan, [facility] [address] [id number] [place] [address] Jan, [facility] [address] [id number] [place] [address] Jan, [facility] [address] [id number] [place] [address] Jan, [facility] [address] [id number] [place] [address] Jan, [facility] [address] [id number] [place] [address] Jan, [facility] [address] [id number] [place] [address]77 17 Jan, 2013 [facility] [address] [id number] [place] [address]35 16 Jan, 2013 [facility] [address] [id number] [place] [address] 39[address] Jan, [facility] [place] [facility] [address] [id number] [place] [address] Jan, [facility] [place] [facility] [address] [id number] [place] [address] Jan, [facility] [place] [facility] [address] [id number] [place] [address] 1606 Jan, [facility] [place] [facility] [address] [id number] [place] [address] 05 Jan, 2013 [facility] [place] [facility] [address] [id number] [place] [address] Jan, [facility] [place] [facility] [address] [id number] [place] [address] 8518 Jan, [facility] [place] [facility] [address] [id number], [place] [address] Jan, [facility] [place] [facility] [address] [facility] [id number] [place] [address] Dec, [facility] [place] [facility] [address] [id number], [place] [address] Dec, [facility] [place] [facility] [address] [id number] [place] [address]014 Dec, [facility] [place] [facility] [address] [id number], [place] [address] Dec, [facility] [place] [facility] [address] [id number], [place] [address] Dec, [facility] [place] [facility] [address] [id number], [place] [address] Dec, [facility] [place] [facility] [address] [id number], [place] [address] Dec, [facility] [place] [facility] [address] [id number], [place] [address] Dec, [facility] [place] [facility] [address] [id number], [place] [address] Dec, [facility] [place] [facility] [address] [id number], [place] [address] Dec, [facility] [place] [facility] [address] [id number], [place] [address] Nov, [facility] [place] [facility] [address] [id number], [place] [address] Nov, [facility] [place] [facility] [address] [id number], [place] [address] 18 Nov, 2012 [facility] [place] [facility] [address] [id number] [place] [address] 18 Nov, 2012 [facility] [address] [id number] [place] [address] Nov, 2012 [facility] [place] [facility] [address] [id number] [place] [address] Nov, 2012 [facility] [address] [id number] [place] [address] Nov, 2012 [facility] [place] [facility] [address] [id number] [place] [address] 2542 Nov, [facility] [address] [id number] [place] [address] Nov, [facility] [place] [facility] [address] [id number] [place] [address] 1165 Nov, [facility] [address] [id number] [place] [address] 7726 Oct, [facility] [address] [id number] [place] [address] Oct, [facility] [place] [facility] [address] [id number] [place] [address] 2548 Oct, [facility] [place] [facility] [address] [id number] [place] [address]40 25 Oct, 2012 [facility] [place] [facility] [address] [id number] [place] [address] 2543 Oct, [facility] [place] [facility] [address] [id number] [place] [address]45 Sep, [facility] [place] [facility] [address] [id number] [place] [address] 0[address] Sep, [facility] [place] [facility] [address] [id number] [place] [address] 2540 Aug, [facility] [place] [facility] [address] [id number] [place] [address] 3778 Aug, [facility] [place] [facility] [address] [id number] [place] [address] Aug, [facility] [address] [id number] [place] [address] 6307 Aug, [facility] [address] [id number] [place] [address] 2025 Aug, [facility] [address] [id number] [place] [address] 7942 Aug, [facility] [address] [id number] [place] [address] 6135 Aug, [facility] [address] [id number] [place] [address] 9252 Jul, [facility] [address] [id number] [place] [address] 4[address] Jul, [facility] [address] [id number] [place] [address]- 0088 June, [facility] [address] [id number] [place] [address] 9023 June, [facility] [address] [id number] [place] [address] 7035 June, [facility] [address] [id number] [place] [address]64 June, [facility] [address] [id number] [place] [address]- 8466 June, [facility] [address] [id number] [place] [address]- 5026 June, [facility] [place] [facility] [address] [id number] [place] [address] 2776 June, [facility] [place] [facility] [address] [id number] [place] [address] 5147 June, [facility] [address] [id number], [place] [address] 8[address] June, [facility] [address] [id number] [place] [address] 8722 June, [facility] [address] [id number] [place] [address] June, [facility] [address] [id number] [place] [address]- 2348 May, [facility] [address] [id number] [place] [address]- 5304 May, [facility] [address] [id number] [place] [address]- 1557 May, [facility] [address] [id number] [place] [address]- 7292 May, [facility] [address] [id number] [place] [address]- 0873 Apr, [facility] [address] [id number] [place] [address]- 0804 Apr, [facility] [address] [id number] [place] [address]- 1695 Apr, [facility] [address] [id number] [place] [address] 4669 Mar, [facility] [address] [id number], [place] [address] 75[address] Mar, [facility] [address] [id number], [place] [address] 7066 Feb, [facility] [address] [id number] [place] [address]- 1049 Feb, [facility] [place] [facility] [address] [id number] [place] [address]- 8787 Feb, [facility] [address] [id number] [place] [address]- 0509 Feb, [facility] [place] [facility] [address] [id number] [place] [address]- 2546 16 Feb, 2012 [facility] [place] [facility] [address] [id number] [place] [address]- 5916 14 Feb, 2012 [facility] [place] [facility] [address] [id number] [place] [address]- 2546 08 Feb, 2012 [facility] [place] [facility] [address] [id number] [place] [address]- 9426 31 Jan, 2012 [facility] [place] [facility] [address] [id number] [place] [address]- 3126 31 Jan, 2012 [facility] [place] [facility] [address] [id number] [place] [address]- 1346 28 Jan, 2012 [facility] [place] [facility] [address] [id number] [place] [address]- 0777 17 Jan, 2012 [facility] [place] [facility] [address] [id number] [place] [address]- 6462 17 Jan, 2012 [facility] [place] [facility] [address] [id number] [place] [address]- 5527 Jan, [facility] [place] [facility] [address] [id number] [place] [address]- 3951 Jan, [facility] [place] [facility] [address] [id number] [place] [address]- 2706 10 Jan, 2012 [facility] [place] [facility] [address] [id number] [place] [address]- 8995 10 Jan, 2012 [facility] [place] [facility] [address] [id number] [place] [address]- 2546 03 Jan, 2012 [facility] [place] [facility] [address] [id number] [place] [address]- 0026 Jan, [facility] [place] [facility] [address] [id number] [place] [address]- 2546 19 Dec, 2011 [facility] [place] [facility] [address] [id number] [place] [address] 6426 Dec, [facility] [place] [facility] [address] [id number] [place] [address]- 5172 Dec, [facility] [place] [facility] [address] [id number] [place] [address]- 3271 Dec, [facility] [place] [facility] [address] [id number] [place] [address]- 3785 Nov, [facility] [place] [facility] [address] [id number] [place] [address]- 2668 Nov, [facility] [place] [facility] [address] [id number] [place] [address]- 3237 Nov, [facility] [place] [facility] [address] [id number] [place] [address]- 0890 Oct, [facility] [place] [facility] [address] [id number] [place] [address]- 9235 24 Oct, 2011 [facility] [place] [facility] [address] [id number] [place] [address]- 3500 21 Oct, 2011 [facility] [place] [facility] [address] [id number] [place] [address]- 6290 10 Oct, 2011 [facility] [place] [facility] [address] [id number] [place] [address]- 0707 07 Oct, 2011 [facility] [place] [facility] [address] [id number], [place] [address]- 2314 Oct, [facility] [place] [facility] [address] [id number], [place] [address]- 0160 Oct, [facility] [place] [facility] [address] [id number] [place] [address]- 9176 Sep, [facility] [place] [facility] [address] [id number], [place] [address]- 7109 Sep, [facility] [place] [facility] [address] [id number] [place] [address]- 8787 Sep, [facility] [place] [facility] [address] [id number] [place] [address]- 5227 Sep, [facility] [place] [facility] [address] [id number] [place] [address]- 0269 Sep, [facility] [place] [facility] [address] [id number] [place] [address]- 0526 30 Aug, 2011 [facility] [place] [facility] [address] [id number] [place] [address]- 0524 Aug, [facility] [place] [facility] [address] [id number] [place] [address]- 7796 17 Aug, 2011 [facility] [place] [facility] [address] [id number] [place] [address]- 8365 16 Aug, 2011 [facility] [place] [facility] [address] [id number] [place] [address]- 0796 Aug, [facility] [place] [facility] [address] [id number] [place] [address]- 8158 Aug, [facility] [place] [facility] [address] [id number] [place] [address]- 1550 Aug, [facility] [place] [facility] [address] [id number] [place] [address]- 0298 Jul, [facility] [place] [facility] [address] [id number] [place] [address]- 8228 Jul, [facility] [place] [facility] [address] [id number] [place] [address]- 9795 Jul, [facility] [place] [facility] [address] [id number] [place] [address]- 8073 Jul, [facility] [place] [facility] [address] [id number] [place] [address]- 1931 Jul, [facility] [place] [facility] [address] [id number] [place] [address]- 8845 Jul, [facility] [place] [facility] [address] [id number] [place] [address]- 3286 Jul, [facility] [place] [facility] [address] [id number] [place] [address]- 0262 Jul, [facility] [address] [id number] [place] [address]- 0400 Jul, [facility] [address] [id number] [place] [address]- 0342 June, [facility] [address] [id number] [place] [address]- 6809 June, [facility] [address] [id number] [place] [address]- 1182 June, [facility] [address] [id number] [place] [address]- 5032 June, [facility] [address] [id number] [place] [address]- 3621 June, [facility] [address] [id number] [place] [address]- 9604 June, [facility] [address] [id number] [place] [address]- 0710 June, [facility] [address] [id number] [place] [address]- 1272 June, [facility] [address] [id number] [place] [address]- 3689 May, [facility] [place] [facility] [address] [id number] [place] [address]- 7016 May, [facility] [place] [facility] [address] [id number] [place] [address]- 2851 May, [facility] [place] [facility] [address] [id number] [place] [address]- 7520 19 May, 2011 [facility] [address] [id number] [place] [address]- 7897 16 May, 2011 [facility] [address] [id number] [place] [address]- 2546 16 May, 2011 [facility] [place] [facility] [address] [id number] [place] [address]- 0216 May, [facility] [place] [facility] [address] [id number] [place] [address]- 1856 Apr, [facility] [place] [facility] [address] [id number] [place] [address]- 9976 Apr, [facility] [place] [facility] [address] [id number] [place] [address]- 7266 Apr, [facility] [place] [facility] [address] [id number] [place] [address]- 7949 Apr, [facility] [place] [facility] [address] [facility] [id number] [place] [address]- 6836 Apr, [facility] [address] [facility] [id number] [place] [address]- 7104 Apr, [facility] [place] [facility] [address] [id number] [place] [address]- 1934 Apr, [facility] [place] [facility] [address] [id number] [place] [address]- 7204 Mar, [facility] [place] [facility] [address] [facility] [id number] [place] [address]- 4063 Mar, [facility] [place] [facility] [address] [id number] [place] [address]- 7735 14 Mar, 2011 [facility] [place] [facility] [address] [id number] [place] [address]- 6846 13 Mar, 2011 [facility] [place] [facility] [address] [id number] [place] [address]- 7024 09 Mar, 2011 [facility] [place] [facility] [address] [id number] [place] [address]- 9994 08 Mar, 2011 [facility] [place] [facility] [address] [facility] [id number] [place] [address]- 2163 Mar, [facility] [place] [facility] [address] [id number] [place] [address]- 3657 Feb, [facility] [address] [id number] [place] [address]- 7693 Feb, [facility] [address] [id number] [place] [address]- 5526 Feb, [facility] [address] [id number] [place] [address]- 1711 Feb, [facility] [address] [id number] [place] [address]- 5213 Feb, [facility] [address] [id number] [place] [address]- 7707 Feb, [facility] [address] [id number] [place] [address]- 5069 Feb, [facility] [address] [id number] [place] [address]- 4247 Feb, [facility] [address] [id number] [place] [address]- 6386 Feb, [facility] [address] [id number] [place] [address]- 5660 Feb, [facility] [address] [id number] [place] [address]- 9758 Jan, [facility] [address] [id number] [place] [address]- 7709 Jan, [facility] [address] [id number] [place] [address]- 7517 Jan, [facility] [place] [facility] [address] [id number] [place] [address]- 3677 Jan, [facility] [place] [facility] [address] [id number] [place] [address]- 3182 Jan, [facility] [address] [id number], [place] [address]- 6252 Jan, [facility] [place] [facility] [address] [id number] [place] [address]- 5221 15 Jan, 2011 [facility] [place] [facility] [address] [id number] [place] [address]- 8553 15 Jan, 2011 [facility] [place] [facility] [address] [facility] [id number] [place] [address]- 6068 Jan, [facility] [place] [facility] [address] [id number] [place] [address]- 9160 Jan, [facility] [place] [facility] [address] [id number] [place] [address]- 7155 Jan, [facility] [place] [facility] [address] [id number] [place] [address]- 3131 17 Dec, 2010 [facility] [place] [facility] [address] [id number] [place] [address]- 8983 17 Dec, 2010 [facility] [place] [facility] [address] [id number], [place] [address]- 8164 17 Dec, 2010 [facility] [place] [facility] [address] [id number], [place] [address]- 7316 16 Dec, 2010 [facility] [place] [facility] [address] [id number] [place] [address]- 1106 14 Dec, 2010 [facility] [place] [facility] [address] [id number], [place] [address]- 7168 Dec, [facility] [place] [facility] [address] [id number], [place] [address]- 6079 08 Dec, 2010 [facility] [place] [facility] [address] [id number], [place] [address]- 1441 07 Dec, 2010 [facility] [place] [facility] [address] [facility] [id number], [place] [address]- 2590 02 Dec, 2010 [facility] [place] [facility] [address] [id number], [place] [address]- 4174 Nov, [facility] [place] [facility] [address] [id number] [place] [address]- 1339 31 Nov, 2010 [facility] [address] [id number] [place] [address]- 2573 27 Nov, 2010 [facility] [place] [facility] [address] [id number] [place] [address]- 8196 24 Nov, 2010 [facility] [address] [id number] [place] [address]- 7965 24 Nov, 2010 [facility] [place] [facility] [address] [id number] [place] [address]- 7823 13 Nov, 2010 [facility] [address] [id number] [place] [address]- 6415 11 Aug, 2010 [facility] [address] [id number] [place] [address]- 9503 14 Feb, 2010 [facility] [address] [id number] [place] [address]- 3281 14 Jan, 2010 [facility] [address] [id number] [place] [address]- 6836 Jan, [facility] [place] [facility] [address] [id number] [place] [address]- 2739 Jan, [facility] [address] [facility] [id number] [place] [address]- 7220 Jan, [facility] [place] [facility] [address] [id number] [place] [address] 2547 Jan, [facility] [place] [facility] [address] [id number] [place] [address]- 6126 Dec, [facility] [place] [facility] [address] [id number] [place] [address]- 9720 Dec, [facility] [place] [facility] [address] [id number] [place] [address]- 2997 Dec, [facility] [place] [facility] [address] [id number] [place] [address]- 3721 Dec, [facility] [address] [facility] [id number] [place] [address] [address] Nov, [facility] [address] [facility] [id number] [place] [address]- 8282 Nov, [facility] [address] [facility] [id number] [place] [address] Nov, IMMUNIZATIONS No Known Immunizations SOCIAL HISTORY Never Assessed REASON FOR VISIT Fentanyl- 07/24 PLAN OF CARE VITAL SIGNS MEDICATIONS Medication Instructions Dosage Frequency Start Date End Date Duration Status Fentanyl 50 MCG/HR Transdermal 48 hrs 1 patch to skin Jul, 30 days Active RESULTS No Results PROCEDURES [...]
--- OUTSIDE RECORDS SUMMARY | 2018-01-13 20:43 | XMS REPORT ---
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 [id number] [address] Sep, [facility] [id number] [address] Sep, [facility] [address] 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 [id number] [place] [address] [id number] Aug, [facility] [id number] [place] [address] 10243- 8429 Aug, Arthritis M19.90 [facility] [id number] [place] [address] 92179- 6085 Aug, [facility] [id number] [place] [address] 19028- 0296 Aug, Obesity (BMI 30.0-34.9) E66.9 ; Unspecified episodic mood disorder F39 and Hypertension I10 [facility] [id number] [place] [address] 50938- 8038 Aug, Unspecified episodic mood disorder F39 [facility] [id number] [place] [address] 48996- 1083 Aug, [facility] [id number] [place] [address] 58829- 9637 Jul, Unspecified episodic mood disorder F39 [facility] [id number] [place] [address] 99342- 4706 Jul, [facility] [id number] [place] [address] 58199- 3388 Jul, Arthritis M19.90 [facility] [id number] [place] [address] 26737- 8783 Jul, Left hip pain M25.552 ; Hypertension I10 ; Other obesity due to excess calories E66.09 and Body mass index (BMI) of 34.0-34.9 in adult Z68.34 [facility] [id number] [place] [address] 11245- 7872 Jul, Unspecified episodic mood disorder F39 [facility] [id number] [place] [address] 54082- 5161 June, Gastroesophageal reflux disease, esophagitis presence not specified K21.9 [facility] [id number] [place] [address] 77679- 1264 June, [facility] [id number] [place] [address] 09563- 7440 June, [facility] [id number] [place] [address] 35923- 1776 June, Arthritis M19.90 [facility] [id number] [place] [address] 03237- 6881 June, [facility] [id number] [place] [address] 12211- 3332 June, [facility] [id number] [place] [address] 78246- 5945 June, Unspecified episodic mood disorder F39 [facility] [id number] [place] [address] 58872- 7859 May, Unspecified episodic mood disorder F39 [facility] [id number] [place] [address] 65870- 1305 May, [facility] [id number] [place] [address] 08484- 2628 May, Arthritis M19.90 [facility] [id number] [place] [address] 42608 -8893 May, Dysuria R30.0 ; Abscess L02.91 and Acute cystitis without hematuria N30.00 [facility] [id number] [place] [address] 80271- 0248 May, 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 ; Unspecified episodic mood disorder F39 ; Combined drug dependence excluding opioids, 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 ; Anxiety F41.9 and Other psychoactive substance dependence, 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 [facility] [id number] [place] [address] 36109- 3253 May, [facility] [id number] [place] [address] 73060- 8353 May, 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 ; Unspecified episodic mood disorder F39 ; Combined drug dependence excluding opioids, 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 ; Other psychoactive substance dependence, 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 and Anxiety F41.9 [facility] [id number] [place] [address] 04085- 9655 May, Other chronic pain G89.29 ; Left hip pain M25.552 ; Hypertension I10 ; 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, 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 and Unspecified episodic mood disorder F39 [facility] [id number] [place] [address] 59888- 4331 Apr, [facility] [id number] [place] [address] 39532 -9321 Apr, Neck pain M54.2 ; Left hip pain M25.552 and Fall, initial encounter W19.XXXA [place] [address] [address]95- 7324 Apr, Unspecified episodic mood disorder F39 ; Combined drug dependence excluding opioids, 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 ; Anxiety F41.9 ; Other psychoactive substance dependence, 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 and 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 [facility] [address], [place] [address] Apr, [facility] [id number] [place] [address] 34803- 6448 Apr, Arthritis M19.90 and Unspecified episodic mood disorder F39 [facility] [id number] [place] [address] 29078- 4039 Apr, Unspecified episodic mood disorder F39 [facility] [id number] [place] [address] 89794- 5757 Apr, [facility] [id number] [place] [address] 57196- 7651 Apr, [facility] [id number] [place] [address] 17498- 1202 Apr, Unspecified episodic mood disorder F39 ; Combined drug dependence excluding opioids, 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 ; Anxiety F41.9 ; Other psychoactive substance dependence, 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 and 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 [facility] [id number] [place] [address] 61492- 1345 Mar, Unspecified episodic mood disorder F39 [facility] [id number] [place] [address] 77862- 8572 Mar, Gastroesophageal reflux disease, esophagitis presence not specified K21.9 [facility] [id number] [place] [address] 96156- 0427 Mar, Arthritis M19.90 and Unspecified episodic mood disorder F39 [facility] [address], [place] [address] 3390 Feb, [facility] [id number] [place] [address] 35084- 3281 Feb, [facility] [address], [place] [address] 9059 Feb, [facility] [id number] [place] [address] 91112- 7754 Feb, Arthritis M19.90 [facility] [id number] [place] [address] 19555- 6194 Feb, Non-pressure chronic ulcer of right calf, 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 ; Unspecified episodic mood disorder F39 and Left hip pain M25.552 [facility] [id number] [place] [address] 23335- 8162 Feb, [facility] [id number] [place] [address] 07451- 0865 Feb, [facility] [facility] [id number] [place] [address] 50121- 1856 Jan, Arthritis M19.90 [facility] [id number] [place] [address] 24735- 5999 Jan, Left hip pain M25.552 and Non-pressure chronic ulcer of right calf, 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 [facility] [id number] [place] [address] 31985- 5161 Jan, Chronic hepatitis C without hepatic coma B18.2 [facility] [id number] [place] [address] 60038- 2854 Jan, Encounter for immunization Z23 ; Venous insufficiency ( chronic) (peripheral) I87.2 ; Non-pressure chronic ulcer of unspecified calf limited to breakdown of skin L97.201 and Gastroesophageal reflux disease, esophagitis presence not specified K21.9 [place] [id number] [place] [address] 47784- 4012 Jan, [facility] [id number] [place] [address] 91382- 4886 Jan, Chronic hepatitis C without hepatic coma B18.2 and Encounter for immunization Z23 [facility] [id number] [place] [address] 86397- 6662 Jan, Arthritis M19.90 [facility] [facility] [address], [place] [address] 7849 Jan, [facility] [id number] [place] [address] 63902- 4116 Dec, [facility] [id number] [place] [address] 58111- 3935 Dec, Unspecified episodic mood disorder F39 [facility] [id number] [place] [address] 37219- 8724 Dec, Arthritis M19.90 [facility] [id number] [place] [address] 87100- 7038 Dec, Arthritis M19.90 [facility] [id number] [place] [address] 66861- 2095 Nov, [facility] [id number] [place] [address] 48042- 9546 Nov, [facility] [id number] [place] [address] 40533- 1598 Nov, Other psychoactive substance dependence, 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 ; 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, 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 and Chronic hepatitis C without hepatic coma B18.2 [facility] [id number] [place] [address] 36580- 6577 Nov, Arthritis M19.90 [facility] [id number] [place] [address] 17361 -9639 Oct, Partial thickness burn of abdomen, initial encounter T21.22XA [facility] [id number] [place] [address] 23605- 1593 Oct, [facility] [id number] [place] [address] 30026- 3222 Sep, Arthritis M19.90 [facility] [address], [place] [address]- 5313 Sep, [facility] [id number], [place] [address]- 4726 Sep, [facility] [id number] [place] [address] 76289- 8066 Sep, Unspecified episodic mood disorder F39 ; Chronic hepatitis C without hepatic coma B18.2 and Left hip pain M25.552 [facility] [id number] [place] [address] 81281- 2273 Sep, Arthritis M19.90 and Left hip pain M25.552 [facility] [id number] [place] [address] 85091- 4439 Aug, [facility] [id number] [place] [address] 53591- 9406 Aug, [facility] [address] [place] [address] 21548- 5852 Aug, Chronic hepatitis C without hepatic coma B18.2 [facility] [address] [address]- 2734 Aug, [facility] [id number] [place] [address] 47820- 0162 Aug, Chronic hepatitis C without hepatic coma B18.2 [facility] [id number], [place] [address]- 7326 Aug, 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, 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 [facility] [id number], [place] [address]- 2947 Aug, [facility] [id number], [place] [address]- 6483 Aug, Chronic hepatitis C without hepatic coma B18.2 and Hypertension I10 [facility] [id number], [place] [address]- 3090 Jul, [facility] [id number], [place] [address]- 6907 June, [facility] [id number] [place] [address] 89253- 1814 Apr, Fibromyalgia M79.7 ; Left hip pain M25.552 and Decubitus ulcer of sacral region, stage 1 L89.151 [facility] [id number] [place] [address] 17527- 2821 Apr, [facility] [address] 44666- 7444 Apr, [facility] [id number] [place] [address] 04564- 1465 Feb, [facility] [address] 22997- 8692 Dec, Anxiety F41.9 ; Combined drug dependence excluding opioids, 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 and Unspecified episodic mood disorder F39 [facility] [address] 91904- 4030 Dec, [facility] [id number] [place] [address] 21507- 4913 Nov, [facility] [address] 97701- 2083 Nov, [facility] [id number] [place] [address] 07291- 9548 10 Nov, 2015 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 and Anxiety F41.9 [facility] [id number] [place] [address] 37185- 6786 Oct, [facility] [id number] [place] [address] 42072 -3168 14 Oct, 2015 Open wound of left thigh, initial encounter S71.102A [facility] [id number] [place] [address] 54448- 1384 12 Oct, 2015 [facility] [id number] [place] [address] 37736- 0952 Sep, Unspecified episodic mood disorder F39 ; Other disorder of impulse control 312.39 ; Combined drug dependence excluding opioids, 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 and Anxiety F41.9 [facility] [id number] [place] [address] 12271- 9905 Sep, Other disorder of impulse control 312.39 ; Combined drug dependence excluding opioids, 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 ; Anxiety F41.9 and Unspecified episodic mood disorder F39 [facility] [id number] [place] [address] 98480- 1624 Sep, Other chronic pain G89.29 [facility] [id number] [place] [address] 32910- 3202 Sep, [facility] [id number] [place] [address] 15870- 3047 Sep, [facility] [id number] [place] [address] 09989- 8668 Aug, [facility] [id number] [place] [address] 91975- 3289 Aug, [facility] [id number] [place] [address] 68386- 2645 Aug, [facility] [id number] [place] [address] 51174- 1643 Jul, [facility] [id number] [place] [address] 57632- 8783 Jul, [facility] [id number] [place] [address] 24263- 9900 Jul, [facility] [id number] [place] [address] 37199- 2050 Jul, Arthritis M19.90 ; Chronic hepatitis C without hepatic coma B18.2 and Left hip pain M25.552 [facility] [address] [place] [address] 83453- 0700 Jul, Left knee pain M25.562 [facility] [address], [place] [address]- 9386 Jul, Combined drug dependence excluding opioids, 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 ; Anxiety F41.9 ; Other disorder of impulse control 312.39 and Unspecified episodic mood disorder F39 [facility] [address] [place] [address] 18279- 8647 Jul, Left knee pain M25.562 [facility] [id number] [place] [address] 47040- 7007 Jul, Left knee pain M25.562 and Left hip pain M25.552 [facility] [id number] [place] [address] 22993- 9647 Jul, [facility] [id number] [place] [address] 40544- 3393 June, [facility] [id number] [place] [address] 89801- 6771 June, Combinations of drug dependence excluding opioid type drug, unspecified abuse 304.80 ; Other disorder of impulse control 312.39 ; Unspecified episodic mood disorder F39 and Anxiety F41.9 [facility] [id number] [place] [address] 14982- 7429 June, Other fatigue R53.83 ; Headache R51 and Left knee pain M25.562 [facility] [id number] [place] [address] 02858- 6738 June, Unspecified episodic mood disorder F39 ; Combinations of drug dependence excluding opioid type drug, unspecified abuse 304.80 ; Other disorder of impulse control 312.39 and Anxiety F41.9 [facility] [id number] [place] [address] 34428- 3139 June, Anxiety F41.9 [facility] [id number] [place] [address] 31298- 5427 June, Pain in left knee M25.562 [facility] [id number] [place] [address] 69206- 1161 June, Anxiety F41.9 and Combinations of drug dependence excluding opioid type drug, unspecified abuse 304.80 [facility] [id number] [place] [address] 07894- 4856 June, Unspecified episodic mood disorder 296.90 ; Combinations of drug dependence excluding opioid type drug, unspecified abuse 304.80 and Other disorder of impulse control 312.39 [facility] [id number] [place] [address] 78015- 3076 June, Anxiety F41.9 and Unspecified episodic mood disorder 296.90 [facility] [id number] [place] [address] 54360- 8552 May, Arthritis M19.90 [facility] [id number] [place] [address] 77176- 9687 May, Arthritis M19.90 [facility] [id number] [place] [address] 82013- 2100 May, Anxiety F41.9 ; Combinations of drug dependence excluding opioid type drug, unspecified abuse 304.80 and Other disorder of impulse control 312.39 [place] [id number] [place] [address] 54967- 1330 May, Left knee pain M25.562 [facility] [id number] [place] [address] 52674- 5064 May, Arthritis M19.90 [facility] [id number] [place] [address] 02702- 8784 May, [facility] [id number] [place] [address] 86171- 2265 May, Anxiety F41.9 ; Unspecified episodic mood disorder 296.90 ; Combinations of drug dependence excluding opioid type drug, unspecified abuse 304.80 and Other disorder of impulse control 312.39 [facility] [id number] [place] [address] 14352- 4593 May, Left knee pain M25.562 [facility] [address] [address]- 9226 May, Left knee pain M25.562 ; Combinations of drug dependence excluding opioid type drug, unspecified abuse 304.80 ; Other disorder of impulse control 312.39 ; Fibromyalgia M79.7 ; Hypertension I10 ; Unspecified episodic mood disorder 296.90 and Left hip pain M25.552 [facility] [id number] [place] [address] 29029- 5934 May, Unspecified episodic mood disorder 296.90 ; Other disorder of impulse control 312.39 ; Combinations of drug dependence excluding opioid type drug, unspecified abuse 304.80 and Anxiety F41.9 [place] [id number] [place] [address] 42547- 5603 May, Left knee pain M25.562 ; Combinations of drug dependence excluding opioid type drug, unspecified abuse 304.80 ; Other disorder of impulse control 312.39 ; Fibromyalgia M79.7 ; Hypertension I10 ; Unspecified episodic mood disorder 296.90 and Left hip pain M25.552 [facility] [id number] [place] [address] 01190- 3849 May, Anxiety F41.9 ; Unspecified episodic mood disorder 296.90 ; Other disorder of impulse control 312.39 and Combinations of drug dependence excluding opioid type drug, unspecified abuse 304.80 [facility] [address] [place] [address] 43361- 6679 Apr, 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 and 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, implants and grafts, initial encounter T84.82XA [facility] [facility] [address] [place] [address] 23932- 5931 Apr, Anxiety F41.9 ; Unspecified episodic mood disorder 296.90 ; Combinations of drug dependence excluding opioid type drug, unspecified abuse 304.80 and Other disorder of impulse control 312.39 [facility] [address] [place] [address] 63009- 0902 Apr, Arthritis M19.90 [facility] [address] [address]- 8678 Apr, Anxiety F41.9 ; Unspecified episodic mood disorder 296.90 ; Combinations of drug dependence excluding opioid type drug, unspecified abuse 304.80 and Other disorder of impulse control 312.39 [facility] [address] [place] [address] 20260- 0015 17 Apr, 2015 Arthritis M19.90 [facility] [id number] [place] [address] 46182- 5488 15 Apr, 2015 [facility] [address] [id number] [place] [address] 45202- 1858 15 Apr, 2015 [facility] [id number] [place] [address] 63962- 9092 14 Apr, 2015 Unspecified episodic mood disorder 296.90 ; Combinations of drug dependence excluding opioid type drug, unspecified abuse 304.80 ; Other disorder of impulse control 312.39 and Anxiety F41.9 [facility] [id number] [place] [address] 40150 -5470 Apr, Left knee pain M25.562 [facility] [id number] [place] [address] 97752- 8842 Apr, [facility] [id number] [place] [address] 40488- 8059 Mar, Unspecified episodic mood disorder 296.90 ; Anxiety F41.9 ; Other disorder of impulse control 312.39 and Combinations of drug dependence excluding opioid type drug, unspecified abuse 304.80 [facility] [address] [address] 4340 Mar, Hyperpigmentation L81.9 [facility] [id number] [place] [address] 40958- 9732 Mar, Arthritis M19.90 and Anxiety F41.9 [facility] [id number] [place] [address] 42987- 8600 22 Mar, 2015 Unspecified episodic mood disorder F39 ; Combined drug dependence excluding opioids, 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 ; 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 and Anxiety F41.9 [facility] [id number] [place] [address] 71235- 0326 12 Mar, 2015 Well woman exam Z01.419 ; Other fatigue R53.83 ; Hot flashes N95.1 ; Depression, unspecified depression type F32.9 and Body mass index (BMI) of 23.0-23.9 in adult Z68.23 [facility] [id number] [place] [address] 06172- 2398 11 Mar, 2015 Unspecified episodic mood disorder 296.90 ; Other disorder of impulse control 312.39 and Anxiety F41.9 [facility] [id number] [place] [address] 33733- 3480 11 Mar, 2015 Well woman exam Z01.419 [...] of breast Z12.39 and Limited mobility Z74.09 [facility] [address], [place] [address] 1276 10 Mar, 2015 [facility] [id number] [place] [address] 32574- 7511 10 Mar, 2015 [place] [address], [place] [address]- 5842 08 Mar, 2015 [facility] [id number] [place] [address] 90568- 0429 Mar, Other specified complication of internal orthopedic prosthetic devices, implants and grafts, initial encounter T84.89XA ; Fibromyalgia M79.7 ; Hypertension I10 ; Anemia D64.9 ; Insomnia G47.00 ; Anxiety F41.9 ; Arthritis M19.90 and Migraine G43.909 [facility] [id number] [place] [address] 00068- 1189 Mar, [facility] [id number] [place] [address] 89038- 6062 Feb, [facility] [address] 79953- 2123 Feb, Arthritis M19.90 and Anxiety F41.9 [facility] [id number] [place] [address] 58098- 9622 Feb, [facility] [id number] [place] [address] 66131- 6462 Feb, [facility] [id number] [place] [address] 96786- 3920 Feb, [facility] [id number] [place] [address] 34719- 5934 Feb, [facility] [id number] [place] [address] 10135- 2243 Feb, Anxiety F41.9 [facility] [id number] [place] [address] 75888- 1368 Feb, [facility] [id number] [place] [address] 14080- 7452 Feb, [facility] [facility] [id number] [place] [address] 37371- 9494 Feb, 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 and Fibromyalgia M79.7 [facility] [id number] [place] [address] 05717- 9940 Feb, [facility] [address] [address]- 5071 Jan, [facility] [id number] [place] [address], [place] [address]- 6454 Jan, [facility] [address], [place] [address]- 6954 Jan, [facility] [id number] [place] [address] 79998- 3473 Jan, [facility] [id number] [place] [address] 52679- 8946 Jan, [facility] [id number] [place] [address] 05350- 0306 Jan, [facility] [id number] [place] [address] 76772- 7422 Jan, [facility] [id number] [place] [address] 27942- 0419 Jan, [facility] [id number] [place] [address] 02588- 3670 Dec, [facility] [id number] [place] [address] 43442- 6651 Dec, Left knee pain M25.562 [facility] [id number] [place] [address] 35704- 7394 Dec, Left knee pain M25.562 [facility] [id number] [place] [address] 77585- 5308 Dec, Fibromyalgia M79.7 ; Hypertension I10 and Arthritis M19.90 [facility] [id number] [place] [address] 81792- 5734 Dec, [facility] [address], [place] [address]- 1910 Dec, [facility] [id number] [place] [address] 56544- 2546 Dec, [facility] [address] [facility] [id number], [place] [address]- 8513 Dec, [facility] [address] [facility] [id number], [place] [address]- 5180 Nov, [facility] [address] [facility] [id number], [place] [address]- 6979 Nov, [facility] [address] [facility] [id number] [place] [address] 67441- 9191 Nov, [facility] [address] [facility] [id number] [place] [address] 72762- 7269 Nov, Hypertension I10 [facility] [place] [facility] [address] [facility] [id number], [place] [address]- 8973 23 Oct, 2014 [facility] [id number] [place] [address] 94916- 3630 17 Oct, 2014 [facility] [id number] [address]- 7865 Oct, [facility] [id number] [place] [address] 75320- 3301 Oct, [facility] [address], [place] [address]- 5800 Oct, [facility] [id number] [address]- 2382 Sep, [facility] [place] [facility] [address] [facility] [id number], [place] [address]- 9249 Sep, [facility] [address] [id number], [place] [address]- 3032 Sep, Hip pain associated with recalled total hip arthroplasty hardware 996.77 [facility] [place] [facility] [address] [facility] [id number], [place] [address]- 2102 Sep, [facility] [place] [facility] [address], [place] [address]- 6729 Sep, [facility] [place] [facility] [address] [id number] [place] [address]- 8337 Sep, [facility] [place] [facility] [address] [id number] [place] [address]- 7739 Aug, [facility] [place] [facility] [address] [id number] [place] [address]- 7245 Jul, [facility] [place] [facility] [address] [id number] [place] [address]- 1285 June, [facility] [place] [facility] [address] [id number] [place] [address]- 0569 June, [facility] [place] [facility] [address] [id number] [place] [address]- 7174 June, [facility] [place] [facility] [address] [id number] [place] [address]- 7656 June, [facility] [place] [facility] [address] [id number] [place] [address]- 2137 June, [facility] [place] [facility] [address] [id number] [place] [address]- 3345 June, [facility] [place] [facility] [address] [id number] [place] [address]- 2375 May, [facility] [place] [facility] [address] [id number] [place] [address]- 1598 May, [facility] [place] [facility] [address] [id number] [place] [address]- 8494 May, [facility] [place] [facility] [address] [id number] [place] [address]- 3897 Apr, [facility] [place] [facility] [address] [id number] [place] [address]- 5190 Apr, [facility] [place] [facility] [address] [id number] [place] [address]- 7464 Apr, [facility] [place] [facility] [address] [id number] [place] [address]- 6355 19 Apr, 2014 [facility] [place] [facility] [address] [id number] [place] [address]- 5931 13 Apr, 2014 [facility] [place] [facility] [address] [id number] [place] [address]- 0326 13 Apr, 2014 [facility] [place] [facility] [address] [id number] [place] [address]- 9215 Apr, [facility] [place] [facility] [address] [id number] [place] [address]- 5932 Apr, [facility] [place] [facility] [address] [id number] [place] [address]- 7155 Apr, [facility] [place] [facility] [address] [id number] [place] [address]- 0431 Apr, [facility] [place] [facility] [address] [id number] [place] [address]- 8586 05 Apr, 2014 [facility] [place] [facility] [address] [id number] [place] [address]- 5717 Mar, [facility] [place] [facility] [address] [id number] [place] [address]- 2900 Mar, [facility] [place] [facility] [address] [id number] [place] [address]- 0603 16 Mar, 2014 [facility] [place] [facility] [address] [id number] [place] [address] 254 16 Mar, 2014 [facility] [place] [facility] [address] [id number] [place] [address] 254 Mar, [facility] [place] [facility] [address] [id number] [place] [address]- 2647 Mar, [facility] [place] [facility] [address] [id number] [place] [address]- 3716 Feb, [facility] [place] [facility] [address] [id number] [place] [address]- 5077 Feb, [facility] [place] [facility] [address] [id number] [place] [address]- 6507 Feb, [facility] [place] [facility] [address] [id number] [place] [address]- 7124 Feb, [facility] [place] [facility] [address] [id number] [place] [address]- 3969 Jan, [facility] [place] [facility] [address] [id number] [place] [address]- 1231 Jan, [facility] [place] [facility] [address] [id number] [place] [address]- 1720 Jan, [facility] [place] [facility] [address] [id number] [place] [address]- 7732 Jan, [facility] [place] [facility] [address] [id number] [place] [address]- 7712 Dec, [facility] [place] [facility] [address] [id number] [place] [address]- 0078 Dec, [facility] [place] [facility] [address] [id number] [place] [address]- 5635 Dec, [facility] [place] [facility] [address] [id number] [place] [address]- 2376 Dec, [facility] [place] [facility] [address] [id number] [place] [address]- 7147 Dec, [facility] [place] [facility] [address] [id number], [place] [address]- 1637 Dec, [facility] [place] [facility] [address] [id number] [place] [address]- 4731 Dec, [facility] [place] [facility] [address] [id number] [place] [address]- 3711 Dec, [facility] [place] [facility] [address] [id number] [place] [address]- 5501 Dec, [facility] [place] [facility] [address] [id number] [place] [address]- 0925 07 Dec, 2013 [facility] [place] [facility] [address] [id number] [place] [address]- 2010 07 Dec, 2013 [facility] [place] [facility] [address] [id number] [place] [address]- 0315 31 Nov, 2013 [facility] [place] [facility] [address] [id number] [place] [address]- 0295 28 Nov, 2013 [facility] [place] [facility] [address] [id number] [place] [address]- 0565 28 Nov, 2013 [facility] [place] [facility] [address] [id number] [place] [address]- 3839 17 Nov, 2013 [facility] [place] [facility] [address] [id number] [place] [address]- 2565 17 Nov, 2013 [facility] [place] [facility] [address] [id number] [place] [address]- 1648 15 Nov, 2013 [facility] [place] [facility] [address] [id number] [place] [address]- 0484 15 Nov, 2013 [facility] [place] [facility] [address] [id number] [place] [address]- 6873 15 Nov, 2013 [facility] [place] [facility] [address] [id number] [place] [address]- 6221 15 Nov, 2013 [facility] [place] [facility] [address] [id number] [place] [address]- 7379 14 Nov, 2013 [facility] [place] [facility] [address] [id number] [place] [address]- 6832 14 Nov, 2013 [facility] [place] [facility] [address] [id number] [place] [address]- 8246 14 Nov, 2013 [facility] [place] [facility] [address] [id number] [place] [address]- 4787 14 Nov, 2013 [facility] [place] [facility] [address] [id number] [place] [address]- 2126 13 Nov, 2013 [facility] [place] [facility] [address] [id number] [place] [address]- 4380 13 Nov, 2013 [facility] [place] [facility] [address] [id number] [place] [address]- 0639 11 Nov, 2013 [facility] [place] [facility] [address] [id number] [place] [address]- 5716 11 Nov, 2013 [facility] [place] [facility] [address] [id number] [place] [address]- 2493 Nov, 2013 [facility] [place] [facility] [address] [id number] [place] [address]- 6804 Nov, 2013 [facility] [place] [facility] [address] [id number] [place] [address]- 4666 Nov, 2013 [facility] [place] [facility] [address] [id number] [place] [address]- 4078 Nov, 2013 [facility] [place] [facility] [address] [id number] [place] [address]- 6784 30 Oct, 2013 [facility] [place] [facility] [address] [id number] [place] [address]- 9546 30 Sep, 2013 [facility] [place] [facility] [address] [id number] [place] [address]- 9097 26 Sep, 2013 [facility] [place] [facility] [address] [id number] [place] [address]- 8611 26 Sep, 2013 [facility] [place] [facility] [address] [id number] [place] [address]- 3261 22 Sep, 2013 [facility] [place] [facility] [address] [id number] [place] [address]- 2542 22 Sep, 2013 [facility] [place] [facility] [address] [id number] [place] [address]- 2542 18 Sep, 2013 [facility] [place] [facility] [address] [id number] [place] [address]- 2549 18 Sep, 2013 [facility] [place] [facility] [address] [id number] [place] [address]- 2309 Oct, [facility] [place] [facility] [address] [id number] [place] [address]- 3996 Oct, [facility] [place] [facility] [address] [id number] [place] [address]- 8252 Oct, [facility] [place] [facility] [address] [id number] [place] [address]- 9819 Oct, [facility] [place] [facility] [address] [id number] [place] [address]- 1869 Oct, [facility] [place] [facility] [address] [id number] [place] [address]- 6575 Oct, [facility] [place] [facility] [address] [id number] [place] [address]- 5441 Sep, [facility] [place] [facility] [address] [id number] [place] [address]- 0035 Sep, [facility] [place] [facility] [address] [id number] [place] [address]- 5546 Sep, [facility] [place] [facility] [address] [id number] [place] [address]- 7518 Sep, [facility] [place] [facility] [address] [id number] [place] [address]- 6765 Sep, [facility] [place] [facility] [address] [id number] [place] [address]- 1975 Sep, [facility] [place] [facility] [address] [id number] [place] [address]- 6151 Sep, [facility] [place] [facility] [address] [id number] [place] [address]- 4524 Sep, [facility] [place] [facility] [address] [id number] [place] [address]- 5081 Sep, [facility] [place] [facility] [address] [id number] [place] [address]- 3733 Sep, [facility] [place] [facility] [address] [id number] [place] [address]- 9452 Sep, [facility] [place] [facility] [address] [id number] [place] [address]- 7166 Sep, [facility] [place] [facility] [address] [id number] [place] [address]- 8447 Sep, [facility] [place] [facility] [address] [id number] [place] [address]- 6162 Sep, [facility] [place] [facility] [address] [id number] [place] [address]- 5756 Sep, [facility] [place] [facility] [address] [id number] [place] [address]- 8410 Sep, [facility] [place] [facility] [address] [id number] [place] [address]- 8234 Sep, [facility] [place] [facility] [address] [id number] [place] [address]- 4977 Sep, [facility] [place] [facility] [address] [id number] [place] [address]- 4237 Aug, [facility] [place] [facility] [address] [id number] [place] [address]- 7453 Aug, [facility] [place] [facility] [address] [id number] [place] [address]- 1387 Aug, [facility] [place] [facility] [address] [id number] [place] [address]- 5005 Aug, [facility] [place] [facility] [address] [id number] [place] [address]- 9782 Aug, [facility] [place] [facility] [address] [id number] [place] [address]- 8188 Aug, [facility] [place] [facility] [address] [id number] [place] [address]- 7193 Jul, [facility] [place] [facility] [address] [id number] [place] [address]- 1061 Jul, [facility] [place] [facility] [address] [id number] [place] [address]- 8058 Jul, [facility] [place] [facility] [address] [id number] [place] [address]- 5174 Jul, [facility] [place] [facility] [address] [id number] [place] [address]- 4207 June, [facility] [place] [facility] [address] [id number] [place] [address]- 9944 June, [facility] [place] [facility] [address] [id number] [place] [address]- 2274 June, [facility] [place] [facility] [address] [id number] [place] [address]- 1617 June, [facility] [place] [facility] [address] [id number] [place] [address]- 7495 June, [facility] [place] [facility] [address] [id number] [place] [address]- 0507 June, [facility] [place] [facility] [address] [id number] [place] [address]- 4573 June, [facility] [place] [facility] [address] [id number] [place] [address]- 6587 May, [facility] [place] [facility] [address] [id number] [place] [address]- 6752 May, [facility] [place] [facility] [address] [id number] [place] [address]- 9470 May, [facility] [place] [facility] [address] [id number] [place] [address]- 8132 May, [facility] [place] [facility] [address] [id number] [place] [address]- 6390 May, [facility] [place] [facility] [address] [id number] [place] [address]- 6244 May, [facility] [place] [facility] [address] [id number] [place] [address]- 2997 Apr, [facility] [place] [facility] [address] [id number] [place] [address]- 5652 31 Apr, 2013 [facility] [place] [facility] [address] [id number] [place] [address]- 8634 Apr, [facility] [place] [facility] [address] [id number] [place] [address]- 7077 Apr, [facility] [place] [facility] [address] [id number] [place] [address]- 8002 Apr, [facility] [place] [facility] [address] [id number] [place] [address]- 5687 Apr, [facility] [place] [facility] [address] [id number] [place] [address]- 5765 Apr, [facility] [place] [facility] [address] [id number] [place] [address]- 6981 Apr, [facility] [place] [facility] [address] [id number] [place] [address] Apr, [facility] [place] [facility] [address] [id number] [place] [address] Apr, [facility] [place] [facility] [address] [id number] [place] [address] Apr, [facility] [place] [facility] [address] [id number] [place] [address] Apr, [facility] [place] [facility] [address] [id number] [place] [address] Apr, [facility] [place] [facility] [address] [id number] [place] [address] 40[address] Apr, [facility] [place] [facility] [address] [id number] [place] [address] Mar, [facility] [place] [facility] [address] [id number] [place] [address]98 Mar, [facility] [place] [facility] [address] [id number] [place] [address] Mar, [facility] [place] [facility] [address] [id number] [place] [address] Feb, [facility] [place] [facility] [address] [id number] [place] [address] Feb, [facility] [place] [facility] [address] [id number] [place] [address] Feb, [facility] [place] [facility] [address] [id number] [place] [address] Feb, [facility] [place] [facility] [address] [id number] [place] [address] Feb, [facility] [place] [facility] [address] [id number] [place] [address] Feb, [facility] [place] [facility] [address] [id number] [place] [address] Feb, [facility] [place] [facility] [address] [id number] [place] [address] Feb, [facility] [place] [facility] [address] [id number] [place] [address] 14[address] Feb, [facility] [place] [facility] [address] [id number] [place] [address] Feb, [facility] [place] [facility] [address] [id number] [place] [address] 60[address] Jan, [facility] [place] [facility] [address] [id number] [place] [address]658 Jan, [facility] [place] [facility] [address] [id number] [place] [address] 1676 Jan, [facility] [place] [facility] [address] [id number] [place] [address] 2680 Jan, [facility] [place] [facility] [address] [id number] [place] [address] Jan, 2013 [facility] [address] [id number] [place] [address] 24 Jan, 2013 [facility] [address] [id number] [place] [address]146 Jan, [facility] [address] [facility] [id number] [place] [address] Jan, [facility] [place] [facility] [address] [id number] [place] [address] Jan, [facility] [address] [id number] [place] [address] 9258 Jan, [facility] [address] [id number] [place] [address] 8438 Jan, [facility] [address] [id number] [place] [address] 17 Jan, 2013 [facility] [place] [facility] [address] [id number], [place] [address] 16 Jan, 2013 [facility] [address] [id number] [place] [address] 77[address] Jan, [facility] [place] [facility] [address] [id number] [place] [address] 39[address] Jan, [facility] [place] [facility] [address] [id number], [place] [address] Jan, [facility] [place] [facility] [address] [id number], [place] [address] Jan, [facility] [place] [facility] [address] [id number] [place] [address] 05 Jan, 2013 [facility] [place] [facility] [address] [id number], [place] [address] 05 Jan, 2013 [facility] [place] [facility] [address] [id number], [place] [address] 05 Jan, 2013 [facility] [place] [facility] [address] [id number] [place] [address] Jan, [facility] [place] [facility] [address] [id number] [place] [address] Dec, [facility] [place] [facility] [address] [id number] [place] [address]- [address]95 Dec, [facility] [place] [facility] [address] [id number] [place] [address] Dec, [facility] [place] [facility] [address] [id number] [place] [address] Dec, [facility] [place] [facility] [address] [id number] [place] [address] Dec, [facility] [place] [facility] [address] [id number] [place] [address] 9848 Dec, [facility] [place] [facility] [address] [id number] [place] [address] 6945 Dec, [facility] [place] [facility] [address] [id number] [place] [address] 8829 Dec, [facility] [place] [facility] [address] [id number] [place] [address] 1687 Dec, [facility] [place] [facility] [address] [facility] [id number] [place] [address] Dec, [facility] [place] [facility] [address] [id number] [place] [address]- 68[address] Nov, [facility] [place] [facility] [address] [id number], [place] [address] Nov, [facility] [place] [facility] [address] [id number] [place] [address]- 5665 Nov, [facility] [place] [facility] [address] [id number] [place] [address]- 6853 Nov, [facility] [place] [facility] [address] [id number] [place] [address] 3466 Nov, [facility] [place] [facility] [address] [id number] [place] [address]- [address] Nov, [facility] [place] [facility] [address] [id number] [place] [place] [address] Nov, [facility] [place] [facility] [address] [id number] [place] [address] Nov, [facility] [place] [facility] [address] [id number] [place] [address] 8[address] Nov, [facility] [address] [id number] [place] [address] Nov, [facility] [place] [facility] [address] [id number] [place] [address] 7336 Oct, [facility] [place] [facility] [address] [id number] [place] [address] Oct, [facility] [place] [facility] [address] [id number] [place] [address] 1098 Oct, [facility] [place] [facility] [address] [id number] [place] [address] 5530 Oct, [facility] [place] [facility] [address] [id number] [place] [address] 3788 Oct, [facility] [place] [facility] [address] [id number] [place] [address]- [address] Sep, [facility] [place] [facility] [address] [id number] [place] [address]- 43[address] Sep, [facility] [place] [facility] [address] [id number] [place] [address]- 5071 Aug, [facility] [place] [facility] [address] [id number] [place] [address]- 1752 Aug, [facility] [place] [facility] [address] [id number] [place] [address]- 1676 Aug, [facility] [place] [facility] [address] [id number] [place] [address]- 7456 Aug, [facility] [address] [id number] [place] [address]- [address] Aug, [facility] [address] [id number] [place] [address]- 2392 Aug, [facility] [address] [id number] [place] [address]- 3917 Aug, [facility] [address] [id number] [place] [address]- 9292 Jul, [facility] [address] [id number] [place] [address] Jul, [facility] [address] [id number] [place] [address]- 3131 June, [facility] [address] [id number] [place] [address] June, [facility] [address] [id number] [place] [address]- 2455 June, [facility] [address] [id number] [place] [address]- 0076 June, [facility] [address] [id number] [place] [address]- 6537 June, [facility] [address] [id number] [place] [address]- 2151 June, [facility] [place] [facility] [address] [id number] [place] [address]- 4314 June, [facility] [place] [facility] [address] [id number] [place] [address]- 0676 June, [facility] [place] [facility] [address] [id number] [place] [address]- 3252 June, [facility] [place] [facility] [address] [id number] [place] [address]- 5276 June, [facility] [place] [facility] [address] [id number] [place] [address]- 6336 June, [facility] [address] [id number] [place] [address]- 9774 May, [facility] [address] [id number] [place] [address]- 0514 May, [facility] [address] [id number] [place] [address]- 9138 May, [facility] [address] [id number] [place] [address]- 5447 May, [facility] [address] [id number] [place] [address]- 8410 Apr, [facility] [address] [id number] [place] [address]- 3145 Apr, [facility] [address] [id number] [place] [address]- 4477 Apr, [facility] [address] [id number] [place] [address]- 5312 Mar, [facility] [address] [id number] [place] [address]- 0557 Mar, [facility] [address] [id number] [place] [address]- 7820 Feb, [facility] [address] [id number] [place] [address]- 0632 Feb, [facility] [address] [id number] [place] [address]- 4033 Feb, [facility] [address] [id number] [place] [address]- 3151 Feb, [facility] [address] [id number] [place] [address]- 2506 16 Feb, 2012 [facility] [address] [id number] [place] [address]- 9414 14 Feb, 2012 [facility] [place] [facility] [address] [id number] [place] [address]- 4210 08 Feb, 2012 [facility] [place] [facility] [address] [id number] [place] [address]- 2236 31 Jan, 2012 [facility] [place] [facility] [address] [id number] [place] [address]- 8855 31 Jan, 2012 [facility] [place] [facility] [address] [id number] [place] [address]- 1336 Jan, [facility] [place] [facility] [address] [id number] [place] [address]- 1868 Jan, [facility] [place] [facility] [address] [id number] [place] [address]- 9888 17 Jan, 2012 [facility] [place] [facility] [address] [id number] [place] [address]- 5857 Jan, [facility] [place] [facility] [address] [id number] [place] [address]- 8159 Jan, [facility] [place] [facility] [address] [id number] [place] [address]- 3845 Jan, [facility] [place] [facility] [address] [id number] [place] [address]- 6904 Jan, [facility] [place] [facility] [address] [id number] [place] [address]- 3558 Jan, [facility] [place] [facility] [address] [id number], [place] [address]- 1330 Jan, [facility] [place] [facility] [address] [id number] [place] [address]- 1385 Dec, [facility] [place] [facility] [address] [id number] [place] [address]- 2586 Dec, [facility] [place] [facility] [address] [id number] [place] [address]- 9381 Dec, [facility] [place] [facility] [address] [id number] [place] [address]- 8238 05 Dec, 2011 [facility] [place] [facility] [address] [id number] [place] [address]- 4316 Nov, [facility] [place] [facility] [address] [id number] [place] [address]- 7486 22 Nov, 2011 [facility] [place] [facility] [address] [id number] [place] [address]- 5236 08 Nov, 2011 [facility] [place] [facility] [address] [id number] [place] [address]- 8476 27 Oct, 2011 [facility] [place] [facility] [address] [id number] [place] [address]- 7833 24 Oct, 2011 [facility] [place] [facility] [address] [id number] [place] [address]- 7291 21 Oct, 2011 [facility] [place] [facility] [address] [id number] [place] [address]- 2828 10 Oct, 2011 [facility] [place] [facility] [address] [id number] [place] [address]- 8162 07 Oct, 2011 [facility] [place] [facility] [address] [id number] [place] [address]- 6246 04 Oct, 2011 [facility] [place] [facility] [address] [id number] [place] [address]- 1622 04 Oct, 2011 [facility] [place] [facility] [address] [id number] [place] [address]- 5337 29 Sep, 2011 [facility] [place] [facility] [address] [id number] [place] [address]- 2548 27 Sep, 2011 [facility] [place] [facility] [address] [id number] [place] [address]- 5339 23 Sep, 2011 [facility] [place] [facility] [address] [id number] [place] [address]- 0066 13 Sep, 2011 [facility] [place] [facility] [address] [id number] [place] [address]- 8055 07 Sep, 2011 [facility] [place] [facility] [address] [id number] [place] [address]- 1828 30 Aug, 2011 [facility] [place] [facility] [address] [id number] [place] [address]- 7940 26 Aug, 2011 [facility] [place] [facility] [address] [id number] [place] [address]- 2296 17 Aug, 2011 [facility] [place] [facility] [address] [id number] [place] [address]- 0636 16 Aug, 2011 [facility] [place] [facility] [address] [id number] [place] [address]- 1566 13 Aug, 2011 [facility] [place] [facility] [address] [id number] [place] [address]- 8668 Aug, [facility] [place] [facility] [address] [id number] [place] [address]- 5346 Aug, [facility] [place] [facility] [address] [id number] [place] [address]- 1765 Jul, [facility] [place] [facility] [address] [id number] [place] [address]- 7495 Jul, [facility] [place] [facility] [address] [id number] [place] [address]- 1048 Jul, [facility] [place] [facility] [address] [id number] [place] [address]- 6846 Jul, [facility] [place] [facility] [address] [id number] [place] [address]- 8645 Jul, [facility] [place] [facility] [address] [id number] [place] [address]- 2913 Jul, [facility] [place] [facility] [address] [id number] [place] [address]- 4172 07 Jul, 2011 [facility] [place] [facility] [address] [id number] [place] [address]- 5993 06 Jul, 2011 [facility] [place] [facility] [address] [id number] [place] [address]- 7666 Jul, [facility] [address] [id number] [place] [address]- 2686 June, [facility] [address] [id number] [place] [address]- 0700 June, [facility] [address] [id number] [place] [address]- 9165 June, [facility] [place] [facility] [address] [id number] [place] [address]- 8187 June, [facility] [address] [id number] [place] [address]- 2169 June, [facility] [address] [id number] [place] [address]- 6960 June, [facility] [address] [id number] [place] [address]- 7162 June, [facility] [place] [facility] [address] [id number] [place] [address]- 8657 June, [facility] [address] [id number] [place] [address]- 5446 May, [facility] [place] [facility] [address] [id number] [place] [address]- 6023 May, [facility] [place] [facility] [address] [id number] [place] [address]- 2790 May, [facility] [place] [facility] [address] [id number] [place] [address]- 9583 19 May, 2011 [facility] [place] [facility] [address] [id number] [place] [address]- 6068 16 May, 2011 [facility] [place] [facility] [address] [id number] [place] [address]- 5464 16 May, 2011 [facility] [place] [facility] [address] [id number] [place] [address]33 May, [facility] [place] [facility] [address] [id number] [place] [address]- 9113 27 Apr, 2011 [facility] [address] [id number] [place] [address]- 1717 Apr, [facility] [place] [facility] [address] [id number] [place] [address]- 1766 Apr, [facility] [address] [id number] [place] [address]- 8366 Apr, [facility] [place] [facility] [address] [id number] [place] [address]- 3187 Apr, [facility] [address] [id number] [place] [address]- 1520 06 Apr, 2011 [facility] [address] [facility] [id number] [place] [address]- 7215 Apr, [facility] [place] [facility] [address] [id number] [place] [address]- 7348 Mar, [facility] [address] [id number] [place] [address]- 6729 Mar, [facility] [place] [facility] [id number] [place] [address]- 6491 14 Mar, 2011 [facility] [address] [id number] [place] [address]- 1251 Mar, [facility] [place] [facility] [address] [facility] [id number] [place] [address]- 2702 Mar, [facility] [place] [facility] [address] [id number] [place] [address]- 4796 Mar, [facility] [place] [facility] [address] [id number] [place] [address]- 1110 Mar, [facility] [place] [facility] [address] [id number] [place] [address]- 9318 Feb, [facility] [place] [facility] [address] [id number] [place] [address]- 5114 Feb, [facility] [address] [id number] [place] [address]- 6035 Feb, [facility] [place] [facility] [address] [id number] [place] [address]- 0988 Feb, [facility] [address] [id number] [place] [address]- 3946 Feb, [facility] [place] [facility] [address] [id number] [place] [address]- 5798 Feb, [facility] [address] [id number] [place] [address]- 8990 Feb, [facility] [address] [id number] [place] [address]- 6329 Feb, [facility] [address] [id number] [place] [address]- 6529 Feb, [facility] [place] [facility] [address] [id number] [place] [address]- 0826 Feb, [facility] [address] [id number] [place] [address]- 8402 Jan, [facility] [place] [facility] [address] [id number] [place] [address]- 6257 Jan, [facility] [place] [facility] [address] [id number] [place] [address]- 1947 Jan, [facility] [place] [facility] [address] [id number], [place] [address]- 1993 Jan, [facility] [place] [facility] [address] [id number] [place] [address]- 7666 Jan, [facility] [place] [facility] [address] [id number] [place] [address]- 9923 Jan, [facility] [place] [facility] [address] [id number] [place] [address]- 8530 Jan, [facility] [place] [facility] [address] [id number] [place] [address]- 8435 15 Jan, 2011 [facility] [address] [id number] [place] [address]- 8475 Jan, [facility] [place] [facility] [address] [id number] [place] [address]- 7334 Jan, [facility] [place] [facility] [address] [id number] [place] [address]- 9169 Jan, [facility] [place] [facility] [address] [id number] [place] [address]- 9286 Dec, [facility] [place] [facility] [address] [id number] [place] [address]- 2895 Dec, [facility] [place] [facility] [address] [id number] [place] [address]- 3279 Dec, [facility] [place] [facility] [address] [id number] [place] [address]- 2208 16 Dec, 2010 [facility] [place] [facility] [address] [id number] [place] [address]- 9249 14 Dec, 2010 [facility] [place] [facility] [address] [id number] [place] [address]- 5946 Dec, [facility] [place] [facility] [address] [facility] [id number] [place] [address]- 4936 Dec, [facility] [place] [facility] [address] [id number] [place] [address]- 2317 Dec, [facility] [place] [facility] [address] [id number] [place] [address]- 4894 Dec, [facility] [place] [facility] [address] [id number] [place] [address]- 7988 Nov, [facility] [place] [facility] [address] [id number] [place] [address]- 8280 Nov, [facility] [place] [facility] [address] [id number] [place] [address]- 3154 Nov, [facility] [place] [facility] [address] [id number] [place] [address]- 5726 24 Nov, 2010 [facility] [place] [facility] [address] [id number] [place] [address]- 0078 24 Nov, 2010 [facility] [place] [facility] [address] [id number] [place] 0496 13 Nov, 2010 [facility] [place] [facility] [address] [id number] [place] [address]- 2556 Aug, [facility] [place] [facility] [address] [id number] [place] [address]- 5899 14 Feb, 2010 [facility] [place] [facility] [address] [id number] [place] [address]- 8232 14 Jan, 2010 [facility] [place] [facility] [address] [id number] [place] [address]- 4731 06 Jan, 2010 [facility] [place] [facility] [address] [id number] [place] [address]- 0453 Jan, [facility] [place] [facility] [address] [id number] [place] [address]- 0111 Jan, [facility] [place] [facility] [address] [id number] [place] [address]- 7798 Jan, [facility] [place] [facility] [address] [id number] [place] [address]- 1192 Dec, [facility] [place] [facility] [address] [id number], [place] [address]- 1821 Dec, [facility] [place] [facility] [address] [id number] [place] [address]- 7679 Dec, [facility] [place] [facility] [address] [id number] [place] [address]65 Dec, [facility] [place] [facility] [address] [id number][place] [address]492 Nov, [facility] [place] [facility] [address] [id number], [place] [address]- 0166 Nov, [facility] [address] [facility] [id number] [place] [address]- 7933 Nov, IMMUNIZATIONS No Known Immunizations SOCIAL HISTORY [...]
--- OUTSIDE RECORDS SUMMARY | 2018-01-13 20:44 | XMS REPORT ---
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 Active 165948783 Problem Hypertension I10 Active 62167657 Problem Arthritis M19.90 Active 8941426 Problem 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 Active 88622612 Problem Anxiety F41.9 Active 59832816 Problem Unspecified episodic mood disorder F39 Active 58854396 Problem Left hip pain M25.552 Active 86796465 ALLERGIES No Information ENCOUNTERS Encounter Location Date Diagnosis [facility] [id number], [place] [address] Sep, [facility] [id number], [place] [address] Sep, Chronic hepatitis C without hepatic coma B18.2 [facility] [id number], [place] [address] 1994 Sep, 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 [facility] [id number] [place] [address] 46723- 6335 Sep, Arthritis M19.90 [facility] [id number] [place] [address] 73714- 4218 Sep, [facility] [id number] [place] [address] 41372- 2619 Sep, Unspecified episodic mood disorder F39 [facility] [id number] [place] [address] 06857- 6922 Aug, [facility] [id number] [place] [address] [id number] Aug, [facility] [id number] [place] [address] 66572- 3729 Aug, Arthritis M19.90 [facility] [id number] [place] [address] 48881- 2526 Aug, [facility] [id number] [place] [address] 27492- 3177 Aug, Obesity (BMI 30.0-34.9) E66.9 ; Unspecified episodic mood disorder F39 and Hypertension I10 [facility] [address], [place] [address] Aug, Unspecified episodic mood disorder F39 [facility] [id number] [address] 7[address] Aug, [facility] [id number] [place] [address] 90282- 0519 Jul, Unspecified episodic mood disorder F39 [facility] [id number], [place] [address] 8[address] Jul, [facility] [address], [place] [address] 9681 Jul, Arthritis M19.90 [facility] [address], [place] [address] 5715 Jul, Left hip pain M25.552 ; Hypertension I10 ; Other obesity due to excess calories E66.09 and Body mass index (BMI) of 34.0-34.9 in adult Z68.34 [facility] [id number] [place] [address] 25890- 9808 Jul, Unspecified episodic mood disorder F39 [facility] [id number] [place] [address] 20001- 8622 June, Gastroesophageal reflux disease, esophagitis presence not specified K21.9 [facility] [id number] [place] [address] 37346- 8793 June, [facility] [id number] [place] [address] 54753- 8807 June, [facility] [id number] [place] [address] 83243- 1322 June, Arthritis M19.90 [facility] [id number] [place] [address] 79267- 1918 June, [facility] [id number] [place] [address] 74655- 1798 June, [facility] [id number] [place] [address] 43101- 6346 June, Unspecified episodic mood disorder F39 [facility] [id number] [address] 8307 May, Unspecified episodic mood disorder F39 [facility] [id number] [place] [address] 09975- 5520 May, [facility] [id number] [place] [address] 40081- 6410 May, Arthritis M19.90 [facility] [id number] [place] [address] 19761 -0926 May, Dysuria R30.0 ; Abscess L02.91 and Acute cystitis without hematuria N30.00 [facility] [id number] [place] [address] 07947- 9076 May, 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 ; Unspecified episodic mood disorder F39 ; Combined drug dependence excluding opioids, 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 ; Anxiety F41.9 and Other psychoactive substance dependence, 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 [facility] [address] 77999- 8969 May, [facility] [id number] [place] [address] 10912- 2649 May, 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 ; Unspecified episodic mood disorder F39 ; Combined drug dependence excluding opioids, 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 ; Other psychoactive substance dependence, 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 and Anxiety F41.9 [address] [facility] [address] 46739- 3886 May, Other chronic pain G89.29 ; Left hip pain M25.552 ; Hypertension I10 ; 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, 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 and Unspecified episodic mood disorder F39 [facility] [id number] [place] [address] 02745- 4065 Apr, [facility] [id number] [place] [address] 20389 -0933 Apr, Neck pain M54.2 ; Left hip pain M25.552 and Fall, initial encounter W19.XXXA [facility] [id number] [place] [address] 96407- 7791 Apr, Unspecified episodic mood disorder F39 ; Combined drug dependence excluding opioids, 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 ; Anxiety F41.9 ; Other psychoactive substance dependence, 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 and 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 [facility] [address] 56923- 1065 Apr, [facility] [address], [place] [address] 8319 Apr, Arthritis M19.90 and Unspecified episodic mood disorder F39 [facility] [id number] [place] [address] 47783- 4819 Apr, Unspecified episodic mood disorder F39 [facility] [id number] [place] [address] 41644- 7948 Apr, [facility] [id number] [place] [address] 17995- 0351 Apr, [facility] [id number] [place] [address] 07795- 5827 Apr, Unspecified episodic mood disorder F39 ; Combined drug dependence excluding opioids, 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 ; Anxiety F41.9 ; Other psychoactive substance dependence, 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 and 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 [facility] [id number] [place] [address] 69615- 5787 Mar, Unspecified episodic mood disorder F39 [facility] [id number] [place] [address] 56166- 8370 Mar, Gastroesophageal reflux disease, esophagitis presence not specified K21.9 [facility] [id number] [place] [address] 24007- 5567 Mar, Arthritis M19.90 and Unspecified episodic mood disorder F39 [facility] [address], [place] [address] 7439 Feb, [facility] [id number] [place] [address] 03610- 4383 Feb, [facility] [id number] [place] [address] 86960- 4039 Feb, [facility] [address], [place] [address] 8884 Feb, Arthritis M19.90 [facility] [address], [place] [address] 8287 Feb, Non-pressure chronic ulcer of right calf, 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 ; Unspecified episodic mood disorder F39 and Left hip pain M25.552 [facility] [id number] [place] [address] 29285- 9524 Feb, [facility] [id number] [place] [address] 28381- 0878 Feb, [facility] [id number] [place] [address] 07009- 6311 Jan, Arthritis M19.90 [address] [id number] [place] [address] 36929- 1881 Jan, Left hip pain M25.552 and Non-pressure chronic ulcer of right calf, 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 [address] [id number] [place] [address] 32135- 3914 Jan, Chronic hepatitis C without hepatic coma B18.2 [facility] [id number] [place] [address] 33234- 4137 Jan, Encounter for immunization Z23 ; Venous insufficiency ( chronic) (peripheral) I87.2 ; Non-pressure chronic ulcer of unspecified calf limited to breakdown of skin L97.201 and Gastroesophageal reflux disease, esophagitis presence not specified K21.9 [address] [facility] [address], [place] [address]- 6531 Jan, [address] [facility] [id number] [place] [address] 64946- 1449 Jan, Chronic hepatitis C without hepatic coma B18.2 and Encounter for immunization Z23 [address] [facility] [id number] [place] [address] 61506- 3807 Jan, Arthritis M19.90 [address] [id number] [place] [address] 06690- 9078 Jan, [address], [place] [address]- 6830 Dec, [facility] [id number] [place] [address] 06590- 1147 Dec, Unspecified episodic mood disorder F39 [facility] [id number] [place] [address] 13341- 9351 Dec, Arthritis M19.90 [facility] [id number] [place] [address] 46987- 4629 Dec, Arthritis M19.90 [facility] [id number] [place] [address] 88783- 2214 Nov, [facility] [id number] [place] [address] 07528- 4822 Nov, [facility] [id number] [place] [address] 12174- 2701 Nov, Other psychoactive substance dependence, 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 ; 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, 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 and Chronic hepatitis C without hepatic coma B18.2 [facility] [id number] [place] [address] 14106- 1514 Nov, Arthritis M19.90 [facility] [id number] [place] [address] 32985 -3227 Oct, Partial thickness burn of abdomen, initial encounter T21.22XA [facility] [id number] [place] [address] 36844- 4162 Oct, [facility] [id number] [place] [address] 10152- 8406 Sep, Arthritis M19.90 [facility] [id number] [place] [address] 50641- 1670 Sep, [facility] [id number] [place] [address] 84960- 4371 Sep, [facility] [address], [place] [address]- 4956 Sep, Unspecified episodic mood disorder F39 ; Chronic hepatitis C without hepatic coma B18.2 and Left hip pain M25.552 [facility] [id number] [place] [address] 07528- 3320 Sep, Arthritis M19.90 and Left hip pain M25.552 [facility] [id number] [place] [address] 55336- 3854 Aug, [facility] [id number] [place] [address] 13014- 4955 Aug, [facility] [id number] [place] [address] 62898- 4633 Aug, Chronic hepatitis C without hepatic coma B18.2 [facility] [id number] [place] [address] 27575- 9498 Aug, [facility] [id number] [place] [address] 20371- 2688 Aug, Chronic hepatitis C without hepatic coma B18.2 [facility] [id number] [place] [address] 88431- 4809 Aug, 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, 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 [facility] [id number] [place] [address] 66924- 0278 Aug, [facility] [id number] [place] [address] 13773- 7217 Aug, Chronic hepatitis C without hepatic coma B18.2 and Hypertension I10 [facility] [id number] [place] [address] 71560- 4591 Jul, [facility] [id number] [place] [address] 82766- 1861 June, [facility] [id number] [place] [address] 44758- 9932 Apr, Fibromyalgia M79.7 ; Left hip pain M25.552 and Decubitus ulcer of sacral region, stage 1 L89.151 [facility] [id number] [place] [address] 77728- 3494 Apr, [facility] [id number] [place] [address] 18693- 5210 Apr, [facility] [address] 35647- 1657 Feb, [facility] [address] 22448- 1536 Dec, Anxiety F41.9 ; Combined drug dependence excluding opioids, 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 and Unspecified episodic mood disorder F39 [facility] [id number] [place] [address] 38117- 8999 Dec, [facility] [address] 16685- 6183 Nov, [facility] [id number] [place] [address] 98170- 1329 Nov, [facility] [address] 47943- 9214 Nov, 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 and Anxiety F41.9 [facility] [id number] [place] [address] 06729- 9342 Oct, [facility] [id number] [place] [address] 93648 -0233 14 Oct, 2015 Open wound of left thigh, initial encounter S71.102A [facility] [address] 88119- 7657 Oct, [facility] [id number] [place] [address] 84791- 6555 Sep, Unspecified episodic mood disorder F39 ; Other disorder of impulse control 312.39 ; Combined drug dependence excluding opioids, 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 and Anxiety F41.9 [facility] [id number] [place] [address] 68391- 0130 Sep, Other disorder of impulse control 312.39 ; Combined drug dependence excluding opioids, 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 ; Anxiety F41.9 and Unspecified episodic mood disorder F39 [facility] [id number] [place] [address] 82961- 3691 Sep, Other chronic pain G89.29 [facility] [id number] [place] [address] 07736- 7013 Sep, [facility] [id number] [place] [address] 57583- 9729 Sep, [facility] [id number] [place] [address] 51453- 8608 Aug, [facility] [id number] [place] [address] 53606- 2260 Aug, [facility] [id number] [place] [address] 27194- 6090 Aug, [facility] [id number] [place] [address] 08375- 3483 Jul, [facility] [id number] [place] [address] 32326- 8857 Jul, [facility] [id number] [place] [address] 05671- 8112 Jul, [facility] [id number] [place] [address] 66235- 4523 Jul, Arthritis M19.90 ; Chronic hepatitis C without hepatic coma B18.2 and Left hip pain M25.552 [facility] [id number] [place] [address] 18267- 0077 Jul, Left knee pain M25.562 [facility] [id number] [place] [address] 30166- 7133 Jul, Combined drug dependence excluding opioids, 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 ; Anxiety F41.9 ; Other disorder of impulse control 312.39 and Unspecified episodic mood disorder F39 [facility] [id number] [place] [address] 12270- 7248 13 Jul, 2015 Left knee pain M25.562 [facility] [id number] [place] [address] 30126- 5270 08 Jul, 2015 Left knee pain M25.562 and Left hip pain M25.552 [facility] [id number] [place] [address] 01972- 7618 Jul, [facility] [id number] [place] [address] 58750- 6685 June, [facility] [id number] [place] [address] 02596- 3489 June, Combinations of drug dependence excluding opioid type drug, unspecified abuse 304.80 ; Other disorder of impulse control 312.39 ; Unspecified episodic mood disorder F39 and Anxiety F41.9 [facility] [id number] [place] [address] 89723- 4871 June, Other fatigue R53.83 ; Headache R51 and Left knee pain M25.562 [facility] [address], [place] [address]- 8015 June, Unspecified episodic mood disorder F39 ; Combinations of drug dependence excluding opioid type drug, unspecified abuse 304.80 ; Other disorder of impulse control 312.39 and Anxiety F41.9 [facility] [address], [place] [address]- 6783 June, Anxiety F41.9 [facility] [id number] [place] [address] 27160- 5569 June, Pain in left knee M25.562 [facility] [id number] [place] [address] 59786- 8134 June, Anxiety F41.9 and Combinations of drug dependence excluding opioid type drug, unspecified abuse 304.80 [facility] [address], [place] [address]- 3774 June, Unspecified episodic mood disorder 296.90 ; Combinations of drug dependence excluding opioid type drug, unspecified abuse 304.80 and Other disorder of impulse control 312.39 [facility] [address], [place] [address]- 4844 June, Anxiety F41.9 and Unspecified episodic mood disorder 296.90 [facility] [id number] [place] [address] 80382- 9207 May, Arthritis M19.90 [facility] [id number] [place] [address] 19991- 0855 May, Arthritis M19.90 [facility] [id number] [place] [address] 09914- 4739 May, Anxiety F41.9 ; Combinations of drug dependence excluding opioid type drug, unspecified abuse 304.80 and Other disorder of impulse control 312.39 [facility] [id number] [place] [address] 85042- 0189 May, Left knee pain M25.562 [facility] [id number] [place] [address] 46995- 1419 May, Arthritis M19.90 [facility] [address], [place] [address]- 1350 May, [facility] [id number] [place] [address] 92569- 0389 May, Anxiety F41.9 ; Unspecified episodic mood disorder 296.90 ; Combinations of drug dependence excluding opioid type drug, unspecified abuse 304.80 and Other disorder of impulse control 312.39 [facility] [id number] [place] [address] 60005- 5529 May, Left knee pain M25.562 [facility] [id number] [place] [address] 12597- 1728 May, Left knee pain M25.562 ; Combinations of drug dependence excluding opioid type drug, unspecified abuse 304.80 ; Other disorder of impulse control 312.39 ; Fibromyalgia M79.7 ; Hypertension I10 ; Unspecified episodic mood disorder 296.90 and Left hip pain M25.552 [facility] [id number] [place] [address] 52639- 9729 May, Unspecified episodic mood disorder 296.90 ; Other disorder of impulse control 312.39 ; Combinations of drug dependence excluding opioid type drug, unspecified abuse 304.80 and Anxiety F41.9 [facility] [id number] [place] [address] 95925- 0674 May, Left knee pain M25.562 ; Combinations of drug dependence excluding opioid type drug, unspecified abuse 304.80 ; Other disorder of impulse control 312.39 ; Fibromyalgia M79.7 ; Hypertension I10 ; Unspecified episodic mood disorder 296.90 and Left hip pain M25.552 [facility] [id number] [place] [address] 36017- 8898 May, Anxiety F41.9 ; Unspecified episodic mood disorder 296.90 ; Other disorder of impulse control 312.39 and Combinations of drug dependence excluding opioid type drug, unspecified abuse 304.80 [facility] [id number] [place] [address] 42546- 4235 Apr, 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 and 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, implants and grafts, initial encounter T84.82XA [facility] [id number] [place] [address] 76315- 5613 Apr, Anxiety F41.9 ; Unspecified episodic mood disorder 296.90 ; Combinations of drug dependence excluding opioid type drug, unspecified abuse 304.80 and Other disorder of impulse control 312.39 [facility] [id number] [place] [address] 80944- 2374 Apr, Arthritis M19.[address] 59999- 8129 Apr, Anxiety F41.9 ; Unspecified episodic mood disorder 296.90 ; Combinations of drug dependence excluding opioid type drug, unspecified abuse 304.80 and Other disorder of impulse control 312.39 [facility] [id number] [place] [address] 67413- 0381 17 Apr, 2015 Arthritis M19.90 [facility] [id number] [place] [address] 89787- 7662 15 Apr, 2015 [facility] [id number] [place] [address] 81495- 7565 15 Apr, 2015 [facility] [id number] [place] [address] 71625- 7694 14 Apr, 2015 Unspecified episodic mood disorder 296.90 ; Combinations of drug dependence excluding opioid type drug, unspecified abuse 304.80 ; Other disorder of impulse control 312.39 and Anxiety F41.9 [facility] [id number] [place] [address] 97180 -2662 Apr, Left knee pain M25.562 [facility] [id number] [place] [address] 58655- 3196 Apr, [facility] [id number] [place] [address] 52592- 7798 Mar, Unspecified episodic mood disorder 296.90 ; Anxiety F41.9 ; Other disorder of impulse control 312.39 and Combinations of drug dependence excluding opioid type drug, unspecified abuse 304.80 [facility] [id number] [place] [address] 80172- 3387 Mar, Hyperpigmentation L81.9 [facility] [id number] [place] [phone] Mar, Arthritis M19.90 and Anxiety F41.9 [facility] [id number] [place] [phone]- [phone] Mar, Unspecified episodic mood disorder F39 ; Combined drug dependence excluding opioids, 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] of breast Z12.39 and Limited mobility Z74.09 [place] [id number] [place] [address] 80048- 6401 10 Mar, 2015 [place] [id number], [place] [address] 5696 Mar, [place] [id number] [place] [address] 41046- 1613 08 Mar, 2015 [place] [id number] [place] [address] 35386- 3058 03 Mar, 2015 Other specified complication of internal orthopedic prosthetic devices, implants and grafts, initial encounter T84.89XA ; Fibromyalgia M79.7 ; Hypertension I10 ; Anemia D64.9 ; Insomnia G47.00 ; Anxiety F41.9 ; Arthritis M19.90 and Migraine G43.909 [facility] [id number] [place] [address] 22875- 5993 Mar, [facility] [address] 52257- 2610 Feb, [facility] [address] [address]80- 2012 Feb, Arthritis M19.90 and Anxiety F41.9 [facility] [address] 70983- 8809 Feb, [facility] [address] 74254- 3548 Feb, [facility] [address] 86317- 5661 Feb, [facility] [address] 25647- 2900 Feb, [facility] [address] 60045- 5420 Feb, Anxiety F41.9 [facility] [id number] [place] [address] 92931- 4127 Feb, [facility] [id number] [place] [address] 13174- 9077 Feb, [facility] [id number] [place] [address] 20970- 3462 Feb, 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 and Fibromyalgia M79.7 [facility] [id number] [place] [address] 22960- 8846 Feb, [facility] [address] 07954- 1377 Jan, [facility] [address], [place] [address] 4619 Jan, [facility] [id number] [place] [address], [place] [address]- 7921 Jan, [facility] [address], [place] [address]- 1789 Jan, [facility] [id number] [place] [address] 82808- 9489 Jan, [facility] [id number] [place] [address] 38047- 9504 Jan, [facility] [id number] [place] [address] 91463- 2736 Jan, [facility] [id number] [place] [address] 71598- 3757 Jan, [facility] [id number] [place] [address] 51068- 8829 Dec, [facility] [id number] [place] [address] 50590- 6688 Dec, Left knee pain M25.562 [facility] [id number] [place] [address] 87754- 8280 Dec, Left knee pain M25.562 [facility] [id number] [place] [address] 23939- 9212 Dec, Fibromyalgia M79.7 ; Hypertension I10 and Arthritis M19.90 [facility] [address], [place] [address]- 5042 Dec, [facility] [id number] [place] [address] 56147- 3051 Dec, [facility] [address], [place] [address]- 7229 Dec, [facility] [id number] [place] [address] 76381- 7751 Dec, [facility] [address] [facility] [id number], [place] [address] 1915 Nov, [facility] [address] [facility] [id number] 3803 Nov, [facility] [address] [facility] [id number], [place] [address]- 7291 Nov, [facility] [address] [facility] [id number] [place] [address] 758114- 0587 Nov, Hypertension I10 [facility] [address] [facility] [id number] [place] [address] 06221- 0811 23 Oct, 2014 [facility] [id number], [place] [address]- 4476 Oct, [facility] [address], [place] [address]- 3737 Oct, [facility] [address], [place] [address]- 3390 Oct, [facility] [id number] [place] [address] 07409- 3290 Oct, [facility] [address], [place] [address]- 8493 Sep, [facility] [address], [place] [address]- 0872 Sep, [facility] [id number], [place] [address]- 1197 Sep, Hip pain associated with recalled total hip arthroplasty hardware 996.77 [facility] [place] [facility] [address] [facility] [id number], [place] [address]- 0307 Sep, [facility] [id number], [place] [address]- 1038 Sep, [facility] [address], [place] [address]- 2810 Sep, [facility] [place] [facility] [address] [id number] [place] [address]- 2607 Aug, [facility] [place] [facility] [address] [id number] [place] [address]- 9528 Jul, [facility] [place] [facility] [address] [id number] [place] [address]- 7966 June, [facility] [place] [facility] [address] [id number] [place] [address]- 0447 June, [facility] [place] [facility] [address] [id number] [place] [address]- 5759 June, [facility] [place] [facility] [address] [id number] [place] [address]- 8663 June, [facility] [place] [facility] [address] [id number] [place] [address]- 9243 June, [facility] [place] [facility] [address] [id number] [place] [address]- 0169 June, [facility] [place] [facility] [address] [id number] [place] [address]- 4523 May, [facility] [place] [facility] [address] [id number] [place] [address]- 8089 May, [facility] [place] [facility] [address] [id number] [place] [address]- 0217 May, [facility] [place] [facility] [address] [id number], [place] [address]- 2025 Apr, [facility] [place] [facility] [address] [id number] [place] [address]- 4820 Apr, [facility] [place] [facility] [address] [id number] [place] [address]- 6420 Apr, [facility] [place] [facility] [address] [id number] [place] [address]- 8968 Apr, [facility] [place] [facility] [address] [id number] [place] [address]- 1560 13 Apr, 2014 [facility] [place] [facility] [address] [id number] [place] [address]- 5190 13 Apr, 2014 [facility] [place] [facility] [address] [id number] [place] [address]- 9952 12 Apr, 2014 [facility] [place] [facility] [address] [id number] [place] [address]- 4529 Apr, [facility] [place] [facility] [address] [id number] [place] [address]- 4082 Apr, [facility] [place] [facility] [address] [id number] [place] [address]- 3885 05 Apr, 2014 [facility] [place] [facility] [address] [id number] [place] [address]- 3643 Apr, [facility] [place] [facility] [address] [id number] [place] [address]- 3966 26 Mar, 2014 [facility] [place] [facility] [address] [id number] [place] [address]- 3127 Mar, [facility] [place] [facility] [address] [id number] [place] [address]- 8529 16 Mar, 2014 [facility] [place] [facility] [address] [facility] [id number] [place] [address]- 7618 16 Mar, 2014 [facility] [place] [facility] [address] [id number] [place] [address]- 5613 Mar, [facility] [place] [facility] [address] [id number] [place] [address]- 6829 Mar, [facility] [place] [facility] [address] [id number] [place] [address]- 9773 Feb, [facility] [place] [facility] [address] [facility] [id number] [place] [address]- 3716 Feb, [facility] [place] [facility] [address] [facility] [id number] [place] [address]- 7219 Feb, [facility] [place] [facility] [address] [id number] [place] [address]- 7159 Feb, [facility] [place] [facility] [address] [id number] [place] [address]- 4730 Jan, [facility] [place] [facility] [address] [id number] [place] [address]- 6360 Jan, [facility] [place] [facility] [address] [id number] [place] [address]- 8039 Jan, [facility] [place] [facility] [address] [id number] [place] [address]- 4403 Jan, [facility] [place] [facility] [address] [id number] [place] [address]- 6735 Dec, [facility] [place] [facility] [address] [id number] [place] [address]- 6554 Dec, [facility] [place] [facility] [address] [id number] [place] [address]- 2616 Dec, [facility] [place] [facility] [address] [id number] [place] [address]- 0569 Dec, [facility] [place] [facility] [address] [id number] [place] [address]- 5131 Dec, [facility] [place] [facility] [address] [id number] [place] [address]- 0575 Dec, [facility] [place] [facility] [address] [id number], [place] [address]- 9005 Dec, [facility] [place] [facility] [address] [id number] [place] [address]- 5985 Dec, [facility] [place] [facility] [address] [id number] [place] [address]- 0694 Dec, [facility] [place] [facility] [address] [id number] [place] [address]- 5401 Dec, [facility] [place] [facility] [address] [id number] [place] [address]- 9152 07 Dec, 2013 [facility] [place] [facility] [address] [id number] [place] [address]- 9337 31 Nov, 2013 [facility] [place] [facility] [address] [id number] [place] [address]- 9444 28 Nov, 2013 [facility] [place] [facility] [address] [id number] [place] [address]- 6952 28 Nov, 2013 [facility] [place] [facility] [address] [id number] [place] [address]- 0331 17 Nov, 2013 [facility] [place] [facility] [address] [id number] [place] [address]- 8846 17 Nov, 2013 [facility] [place] [facility] [address] [id number] [place] [address]- 3003 15 Nov, 2013 [facility] [place] [facility] [address] [id number] [place] [address]- 8017 15 Nov, 2013 [facility] [place] [facility] [address] [id number] [place] [address]- 7746 15 Nov, 2013 [facility] [place] [facility] [address] [id number] [place] [address]- 9800 15 Nov, 2013 [facility] [place] [facility] [address] [id number] [place] [address]- 1678 14 Nov, 2013 [facility] [place] [facility] [address] [id number] [place] [address]- 2319 14 Nov, 2013 [facility] [place] [facility] [address] [id number] [place] [address]- 5873 14 Nov, 2013 [facility] [place] [facility] [address] [id number] [place] [address]- 4752 14 Nov, 2013 [facility] [place] [facility] [address] [id number] [place] [address]- 3230 13 Nov, 2013 [facility] [place] [facility] [address] [id number] [place] [address]- 9336 13 Nov, 2013 [facility] [place] [facility] [address] [id number] [place] [address]- 7716 11 Nov, 2013 [facility] [place] [facility] [address] [id number] [place] [address]- 1428 11 Nov, 2013 [facility] [place] [facility] [address] [id number] [place] [address]- 5743 Nov, 2013 [facility] [place] [facility] [address] [id number] [place] [address]- 6655 Nov, 2013 [facility] [place] [facility] [address] [id number] [place] [address]- 7866 Nov, 2013 [facility] [place] [facility] [address] [id number] [place] [address]- 8861 Nov, [facility] [place] [facility] [address] [id number] [place] [address]- 1751 30 Oct, 2013 [facility] [place] [facility] [address] [id number] [place] [address]- 8464 30 Oct, 2013 [facility] [place] [facility] [address] [id number] [place] [address]- 7112 26 Oct, 2013 [facility] [place] [facility] [address] [id number] [place] [address]- 7673 26 Oct, 2013 [facility] [place] [facility] [address] [id number] [place] [address]- 4728 22 Oct, 2013 [facility] [place] [facility] [address] [id number] [place] [address]- 2549 22 Oct, 2013 [facility] [place] [facility] [address] [id number] [place] [address]- 2245 18 Sep, 2013 [facility] [place] [facility] [address] [id number] [place] [address]- 2546 18 Oct, 2013 [facility] [place] [facility] [address] [id number] [place] [address]- 2541 18 Sep, 2013 [facility] [place] [facility] [address] [id number] [place] [address]- 1001 18 Oct, 2013 [facility] [place] [facility] [address] [id number] [place] [address]- 3812 Oct, [facility] [place] [facility] [address] [id number] [place] [address]- 9361 Oct, [facility] [place] [facility] [address] [id number] [place] [address]- 0058 Oct, [facility] [place] [facility] [address] [id number] [place] [address]- 2079 Oct, [facility] [place] [facility] [address] [id number] [place] [address]- 8495 Sep, [facility] [place] [facility] [address] [id number] [place] [address]- 3274 Sep, [facility] [place] [facility] [address] [id number] [place] [address]- 6565 Sep, [facility] [place] [facility] [address] [id number] [place] [address]- 6568 Sep, [facility] [place] [facility] [address] [id number] [place] [address]- 1723 Sep, [facility] [place] [facility] [address] [id number] [place] [address]- 3261 Sep, [facility] [place] [facility] [address] [id number] [place] [address]- 6508 Sep, [facility] [place] [facility] [address] [id number] [place] [address]- 2482 Sep, [facility] [place] [facility] [address] [id number] [place] [address]- 9764 Sep, [facility] [place] [facility] [address] [id number] [place] [address]- 0620 Sep, [facility] [place] [facility] [address] [id number] [place] [address]- 3434 Sep, [facility] [place] [facility] [address] [id number] [place] [address]- 4999 Sep, [facility] [place] [facility] [address] [id number] [place] [address]- 4795 Sep, [facility] [place] [facility] [address] [id number] [place] [address]- 5001 Sep, [facility] [place] [facility] [address] [id number] [place] [address]- 8048 Sep, [facility] [place] [facility] [address] [id number] [place] [address]- 1736 Sep, [facility] [place] [facility] [address] [id number] [place] [address]- 3130 Sep, [facility] [place] [facility] [address] [id number] [place] [address]- 0392 Sep, [facility] [place] [facility] [address] [id number] [place] [address]- 3895 Aug, [facility] [place] [facility] [address] [id number] [place] [address]- 7484 Aug, [facility] [place] [facility] [address] [id number] [place] [address]- 7967 Aug, [facility] [place] [facility] [address] [id number] [place] [address]- 7027 Aug, [facility] [place] [facility] [address] [id number] [place] [address]- 0524 Aug, [facility] [place] [facility] [address] [id number] [place] [address]- 0532 Aug, [facility] [place] [facility] [address] [id number] [place] [address]- 1116 Jul, [facility] [place] [facility] [address] [id number] [place] [address]- 7538 Jul, [facility] [place] [facility] [address] [id number] [place] [address]- 1478 Jul, [facility] [place] [facility] [address] [id number] [place] [address]- 5438 Jul, [facility] [place] [facility] [address] [id number] [place] [address]- 4959 June, [facility] [place] [facility] [address] [id number] [place] [address]- 6415 June, [facility] [place] [facility] [address] [id number] [place] [address]- 7496 June, [facility] [place] [facility] [address] [id number] [place] [address]- 9099 June, [facility] [place] [facility] [address] [id number] [place] [address]- 3137 June, [facility] [place] [facility] [address] [id number] [place] [address]- 5793 June, [facility] [place] [facility] [address] [id number] [place] [address]- 4979 June, [facility] [place] [facility] [address] [id number] [place] [address]- 9489 May, [facility] [place] [facility] [address] [id number] [place] [address]- 5102 May, [facility] [place] [facility] [address] [id number] [place] [address]- 7256 May, [facility] [place] [facility] [address] [id number] [place] [address]- 4228 May, [facility] [place] [facility] [address] [id number] [place] [address]- 2692 May, [facility] [place] [facility] [address] [id number] [place] [address]- 0384 May, [facility] [place] [facility] [address] [id number] [place] 3282 Apr, [facility] [place] [facility] [address] [id number] [place] [address]- 9577 31 Apr, 2013 [facility] [place] [facility] [address] [id number] [place] [address]- 9242 Apr, [facility] [place] [facility] [address] [id number] [place] 1941 28 Apr, 2013 [facility] [place] [facility] [address] [id number] [place] [address]- 3835 14 Apr, 2013 [facility] [place] [facility] [address] [id number] [place] [address]- 9797 14 Apr, 2013 [facility] [place] [facility] [address] [id number] [place] [address]- 2674 Apr, [facility] [place] [facility] [address] [id number] [place] [address]- 2129 Apr, [facility] [place] [facility] [address] [id number] [place] [address]- 2345 Apr, [facility] [place] [facility] [address] [id number] [place] [address]- 2411 10 Apr, 2013 [facility] [place] [facility] [address] [id number] [place] [address]- 5530 04 Apr, 2013 [facility] [place] [facility] [address] [id number] [place] [address]- 8569 Apr, [facility] [place] [facility] [address] [id number] [place] [address]- 1022 Apr, [facility] [place] [facility] [address] [id number] [place] [address]- 1372 Apr, [facility] [place] [facility] [address] [id number] [place] [address]- 7769 Mar, [facility] [place] [facility] [address] [id number] [place] [address]- 7011 Mar, [facility] [place] [facility] [address] [id number] [place] [address]- 3612 05 Mar, 2013 [facility] [place] [facility] [address] [id number] [place] [address]- 6714 Feb, [facility] [place] [facility] [address] [id number] [place] [address]- 4674 Feb, [facility] [place] [facility] [address] [id number] [place] [address] Feb, [facility] [place] [facility] [address] [id number] [place] [address] Feb, [facility] [place] [facility] [address] [id number] [place] [address] Feb, [facility] [place] [facility] [address] [id number] [place] [address] Feb, [facility] [place] [facility] [address] [id number] [place] [address] Feb, [facility] [place] [facility] [address] [id number] [place] [address] 1990 Feb, [facility] [place] [facility] [address] [id number] [place] [address] Feb, [facility] [place] [facility] [address] [id number] [place] [address] Feb, [facility] [place] [facility] [address] [id number] [place] [address] Jan, [facility] [place] [facility] [address] [id number] [place] [address] Jan, [facility] [place] [facility] [address] [id number] [place] [address] Jan, [facility] [place] [facility] [address] [id number] [id number] [address] Jan, [facility] [place] [facility] [address] [id number] [place] [address] Jan, [facility] [place] [facility] [address] [id number] [place] [address] Jan, 2013 [facility] [address] [id number] [place] [address] Jan, [facility] [address] [id number] [place] [address] Jan, [facility] [address] [facility] [id number] [place] [address] Jan, [facility] [place] [facility] [address] [id number] [place] [address]- 07[address] Jan, [facility] [address] [id number] [place] [address] 17 Jan, 2013 [facility] [address] [id number] [place] [address] Jan, [facility] [address] [id number] [place] [address] 16 Jan, 2013 [facility] [place] [facility] [address] [id number], [place] [address] Jan, [facility] [place] [facility] [address] [id number] [place] [address] 6[address] Jan, [facility] [place] [facility] [address] [id number] [place] [address] 8928 Jan, [facility] [place] [facility] [address] [id number], [place] [address] Jan, [facility] [place] [facility] [address] [id number], [place] [address] 05 Jan, 2013 [facility] [place] [facility] [address] [id number], [place] [address] Jan, [facility] [place] [facility] [address] [id number], [place] [address] 05 Jan, 2013 [facility] [place] [facility] [address] [facility] [id number], [place] [address] 05 Jan, 2013 [facility] [place] [facility] [address] [id number] [place] [address] Dec, [facility] [place] [facility] [address] [id number] [place] [address]- 1544 Dec, [facility] [place] [facility] [address] [id number] [place] [address] 6786 Dec, [facility] [place] [facility] [address] [id number] [place] [address] 2694 Dec, [facility] [place] [facility] [address] [id number] [place] [address] Dec, [facility] [place] [facility] [address] [id number] [place] [address] 7925 Dec, [facility] [place] [facility] [address] [id number] [place] [address]99 Dec, [facility] [place] [facility] [address] [id number] [place] [address]- 6080 Dec, [facility] [place] [facility] [address] [id number] [place] [address] Dec, [facility] [place] [facility] [address] [id number] [place] [address] Dec, [facility] [place] [facility] [address] [id number] [place] [address]- [address]90 Nov, [facility] [place] [facility] [address] [id number] [place] [address]- 0792 Nov, [facility] [place] [facility] [address] [id number], [place] [address]- [address] Nov, [facility] [place] [facility] [address] [id number] [place] [address]- 8675 Nov, [facility] [place] [facility] [address] [id number] [place] [address]- 7901 Nov, [facility] [place] [facility] [address] [id number] [place] [address]- 57[address] Nov, [facility] [place] [facility] [address] [id number] [place] [address] Nov, [facility] [place] [facility] [address] [id number] [place] [address] Nov, [facility] [place] [facility] [address] [id number] [place] [address]- 9681 Nov, [facility] [place] [facility] [address] [id number] [place] [address]- 74[address] Nov, [facility] [address] [id number] [place] [address] Oct, [facility] [place] [facility] [address] [id number] [place] [address] 7658 Oct, [facility] [address] [id number] [place] [address]- 8988 Oct, [facility] [place] [facility] [address] [id number] [place] [address]- 9459 Oct, [facility] [place] [facility] [address] [id number] [place] [address]- [address]337 Oct, [facility] [place] [facility] [address] [id number] [place] [address]- [address] Sep, [facility] [place] [facility] [address] [id number] [place] [address]184 Sep, [facility] [place] [facility] [address] [id number] [place] [address] 1619 Aug, [facility] [place] [facility] [address] [id number] [place] [address]- 1677 Aug, [facility] [place] [facility] [address] [id number] [place] [address]- 8847 Aug, [facility] [place] [facility] [address] [id number] [place] [address]90 Aug, [facility] [place] [facility] [address] [id number] [place] [address]- [address] Aug, [facility] [address] [id number] [place] [address] Aug, [facility] [address] [id number] [place] [address]- 1165 Aug, [facility] [address] [id number] [place] [address]- [address]887 Jul, [facility] [address] [id number] [place] [address] 3600 Jul, [facility] [address] [id number] [place] [address] June, [facility] [address] [id number] [place] [address]- 6481 June, [facility] [address] [id number] [place] [address] June, [facility] [address] [id number] [place] [address]- 6838 June, [facility] [address] [id number] [place] [address] June, [facility] [address] [id number] [place] [address] June, [facility] [address] [id number] [place] [address] June, [facility] [place] [facility] [address] [id number] [place] [address] June, [facility] [place] [facility] [address] [id number] [place] [address] June, [facility] [place] [facility] [address] [id number] [place] [address] June, [facility] [place] [facility] [address] [id number] [place] [address] June, [facility] [place] [facility] [address] [id number] [place] [address] 29 May, 2012 [facility] [address] [id number] [place] [address] May, [facility] [address] [id number] [place] [address] May, [facility] [address] [id number] [place] [address]77 May, [facility] [address] [id number] [place] [address] 3673 Apr, [facility] [address] [id number] [place] [address] 15[address] Apr, [facility] [address] [id number] [place] [address] 5463 Apr, [facility] [address] [id number] [place] [address] 495[address] Mar, [facility] [address] [id number] [place] [address] 0857 Mar, [facility] [address] [id number] [place] [address] 9006 Feb, [facility] [address] [id number] [place] [address] 4052 Feb, [facility] [address] [id number] [place] [address] 9363 Feb, [facility] [address] [id number] [place] [address] 9770 Feb, [facility] [place] [facility] [address] [id number] [place] [address]- 0585 16 Feb, 2012 [facility] [place] [facility] [address] [id number] [place] [address] 2126 14 Feb, 2012 [facility] [address] [id number] [place] [address] 2251 Feb, [facility] [place] [facility] [address] [id number] [place] [address] 4528 Jan, [facility] [place] [facility] [address] [id number] [place] [address] 5214 Jan, [facility] [place] [facility] [address] [id number] [place] [address] 3827 Jan, [facility] [place] [facility] [address] [id number] [place] [address] 6747 Jan, [facility] [place] [facility] [address] [id number] [place] [address]- 5962 Jan, [facility] [place] [facility] [address] [id number] [place] [address]- 7332 Jan, [facility] [place] [facility] [address] [id number] [place] [address]- 4191 Jan, [facility] [place] [facility] [address] [id number] [place] [address]- 4591 Jan, [facility] [place] [facility] [address] [id number] [place] [address] 0310 Jan, [facility] [place] [facility] [address] [id number] [place] [address] 6018 Jan, [facility] [place] [facility] [address] [id number] [place] [address]- 5695 Jan, [facility] [place] [facility] [address] [id number], [place] [address] Dec, [facility] [place] [facility] [address] [id number] [place] [address]- 7876 Dec, [facility] [place] [facility] [address] [id number] [place] [address]- 6567 Dec, [facility] [place] [facility] [address] [id number] [place] [address]- 9077 Dec, [facility] [place] [facility] [address] [id number] [place] [address]- 0755 22 Nov, 2011 [facility] [place] [facility] [address] [id number] [place] [address] 3336 22 Nov, 2011 [facility] [place] [facility] [address] [id number] [place] [address]- 8486 08 Nov, 2011 [facility] [place] [facility] [address] [id number] [place] [address]- 4376 27 Oct, 2011 [facility] [place] [facility] [address] [id number] [place] [address] 2546 24 Oct, 2011 [facility] [place] [facility] [address] [id number] [place] [address]- 1066 21 Oct, 2011 [facility] [place] [facility] [address] [id number] [place] [address]- 5706 10 Oct, 2011 [facility] [place] [facility] [address] [id number] [place] [address]- 4871 07 Oct, 2011 [facility] [place] [facility] [address] [id number] [place] [address]- 6500 04 Oct, 2011 [facility] [place] [facility] [address] [id number] [place] [address]- 6982 04 Oct, 2011 [facility] [place] [facility] [address] [id number] [place] [address]- 0973 29 Sep, 2011 [facility] [place] [facility] [address] [id number] [place] [address]- 1876 Sep, [facility] [place] [facility] [address] [id number] [place] [address] 2545 Sep, [facility] [place] [facility] [address] [id number] [place] [address]- 7666 Sep, [facility] [place] [facility] [address] [id number] [place] [address]- 3876 Sep, [facility] [place] [facility] [address] [id number] [place] [address]- 2769 30 Aug, 2011 [facility] [place] [facility] [address] [id number] [place] [address]- 0401 26 Aug, 2011 [facility] [place] [facility] [address] [id number] [place] [address]- 6641 17 Aug, 2011 [facility] [place] [facility] [address] [id number] [place] [address]- 9956 16 Aug, 2011 [facility] [place] [facility] [address] [id number] [place] [address]- 2874 13 Aug, 2011 [facility] [place] [facility] [address] [id number] [place] [address]- 5184 Aug, [facility] [place] [facility] [address] [id number] [place] [address]- 7864 Aug, [facility] [place] [facility] [address] [id number] [place] [address]- 5189 28 Jul, 2011 [facility] [place] [facility] [address] [id number] [place] [address]- 4492 Jul, [facility] [place] [facility] [address] [id number] [place] [address]- 6024 Jul, [facility] [place] [facility] [address] [id number] [place] [address]- 4295 Jul, [facility] [place] [facility] [address] [id number] [place] [address]- 0601 Jul, [facility] [place] [facility] [address] [id number] [place] [address]- 1399 Jul, [facility] [place] [facility] [address] [id number] [place] [address]- 5813 07 Jul, 2011 [facility] [place] [facility] [address] [id number] [place] [address]- 2782 06 Jul, 2011 [facility] [place] [facility] [address] [id number] [place] [address]- 9933 05 Jul, 2011 [facility] [place] [facility] [address] [id number] [place] [address]- 2997 June, [facility] [address] [id number] [place] [address]- 2959 June, [facility] [place] [facility] [address] [id number] [place] [address] June, [facility] [place] [facility] [address] [id number] [place] [address]- 9736 June, [facility] [place] [facility] [address] [id number] [place] [address]- 4709 June, [facility] [address] [id number] [place] [address]- 5727 June, [facility] [address] [id number] [place] [address]- 0071 June, [facility] [address] [id number] [place] [address]- 3258 June, [facility] [place] [facility] [address] [id number] [place] [address]- 6449 May, [facility] [place] [facility] [address] [id number] [place] [address]- 8331 May, [facility] [place] [facility] [address] [id number] [place] [address]- 7816 May, [facility] [place] [facility] [address] [id number] [place] [address]- 7810 May, [facility] [place] [facility] [address] [id number] [place] [address]- 9446 16 May, 2011 [facility] [place] [facility] [address] [id number] [place] [address]- 8359 May, [facility] [place] [facility] [address] [id number] [place] [address]- 9172 May, [facility] [place] [facility] [address] [id number] [place] [address]- 1140 Apr, [facility] [place] [facility] [address] [id number] [place] [address]- 5497 Apr, [facility] [address] [id number] [place] [address]- 7836 Apr, [facility] [place] [facility] [address] [id number] [place] [address]- 2246 Apr, [facility] [address] [id number] [place] [address]- 7962 Apr, [facility] [place] [facility] [address] [id number] [place] [address]- 4254 Apr, [facility] [place] [facility] [address] [id number] [place] [address]- 4472 Apr, [facility] [place] [facility] [address] [id number] [place] [address]- 3250 Mar, [facility] [place] [facility] [address] [id number] [place] [address]- 7188 Mar, [facility] [address] [id number] [place] [address]- 9863 14 Mar, 2011 [facility] [place] [facility] [id number] [place] [address]- 9121 13 Mar, 2011 [facility] [place] [facility] [address] [id number] [place] [address]- 9893 Mar, [facility] [place] [facility] [address] [facility] [id number] [place] [address]- 3689 Mar, [facility] [place] [facility] [address] [id number] [place] [address]- 6158 Mar, [facility] [place] [facility] [address] [facility] [id number] [place] [address]- 3983 Feb, [facility] [place] [facility] [address] [id number] [place] [address]- 1738 Feb, [facility] [place] [facility] [address] [facility] [id number] [place] [address]- 1300 Feb, [facility] [address] [id number] [place] [address]- 1060 Feb, [facility] [place] [facility] [address] [id number] [place] [address]- 6356 Feb, [facility] [address] [id number] [place] [address]- 9111 Feb, [facility] [place] [facility] [address] [id number] [place] [address]- 6008 Feb, [facility] [address] [id number] [place] [address]- 1661 Feb, [facility] [address] [id number] [place] [address]- 3506 Feb, [facility] [address] [id number] [place] [address]- 7912 Feb, [facility] [address] [id number] [place] [address]- 8373 Jan, [facility] [address] [id number] [place] [address]- 6426 Jan, [facility] [place] [facility] [address] [id number] [place] [address]- 9874 Jan, [facility] [place] [facility] [address] [id number] [place] [address]- 7188 Jan, [facility] [place] [facility] [address] [id number], [place] [address]- 3750 Jan, [facility] [place] [facility] [address] [id number] [place] [address]- 9786 Jan, [facility] [place] [facility] [address] [id number] [place] [address]- 7539 15 Jan, 2011 [facility] [place] [facility] [address] [id number] [place] [address] 15 Jan, 2011 [facility] [place] [facility] [address] [id number] [place] [address]- 8580 08 Jan, 2011 [facility] [place] [facility] [address] [id number] [place] [address]- 5475 Jan, [facility] [place] [facility] [address] [id number] [place] [address]- 0817 Jan, [facility] [place] [facility] [address] [id number] [place] [address]- 9239 Dec, [facility] [place] [facility] [address] [id number] [place] [address]- 1616 17 Dec, 2010 [facility] [place] [facility] [address] [id number] [place] [address]- 0546 17 Dec, 2010 [facility] [place] [facility] [address] [id number] [place] [address]- 7626 16 Dec, 2010 [facility] [place] [facility] [address] [id number] [place] [address]- 3592 14 Dec, 2010 [facility] [place] [facility] [address] [id number] [place] [address]- 8423 Dec, [facility] [place] [facility] [address] [id number] [place] [address]- 7029 Dec, [facility] [place] [facility] [address] [facility] [id number] [place] [address]- 3176 Dec, [facility] [place] [facility] [address] [id number] [place] [address]- 0696 Dec, [facility] [place] [facility] [address] [id number] [place] [address]- 4422 Nov, [facility] [place] [facility] [address] [id number] [place] [address]- 9747 Nov, [facility] [place] [facility] [address] [id number] [place] [address]- 5231 Nov, [facility] [place] [facility] [address] [id number] [place] [address]- 6681 24 Nov, 2010 [facility] [place] [facility] [address] [id number] [place] [address]- 6281 24 Nov, 2010 [facility] [place] [facility] [address] [id number] [place] [address]- 6869 13 Nov, 2010 [facility] [place] [facility] [address] [id number] [place] 4571 Aug, [facility] [place] [facility] [address] [id number] [place] [address]- 2164 14 Feb, 2010 [facility] [place] [facility] [address] [id number] [place] [address]84 14 Jan, 2010 [facility] [place] [facility] [address] [id number] [place] [address]- 7079 Jan, [facility] [place] [facility] [address] [id number] [place] [address]- 4580 Jan, [facility] [place] [facility] [address] [id number] [place] [address]- 6501 Jan, [facility] [place] [facility] [address] [id number] [place] [address]- 4517 Jan, [facility] [place] [facility] [address] [id number] [place] [address]- 3643 Dec, [facility] [place] [facility] [address] [id number] [place] [address]- 4175 Dec, [facility] [place] [facility] [address] [id number], [place] [address]- 3382 Dec, [facility] [place] [facility] [address] [id number] [place] [address]- 9778 Dec, [facility] [place] [facility] [address] [id number] [place] [address]486 Nov, [facility] [place] [facility] [address] [id number] [place] [address]17 Nov, [facility] [place] [facility] [address] [id number], [place] [address]- 5178 Nov, IMMUNIZATIONS No Known Immunizations SOCIAL HISTORY Never Assessed REASON FOR VISIT Kassyseema 07/08 PLAN OF CARE VITAL SIGNS MEDICATIONS Medication Instructions Dosage Frequency Start Date End Date Duration Status Pantoprazole Sodium 40 mg Orally Once a day 1 tablet 24h 30 days Active Furosemide 20 mg Orally Once a day 1 tablet 24h Active Nabumetone 500 mg Orally Twice a day, pc 1 tablet 30 Active Fluoxetine HCl 40 mg Orally Once a day 2 capsule in the morning 24h 30 Active RESULTS No Results PROCEDURES No [...]
--- OUTSIDE RECORDS SUMMARY | 2018-01-13 20:45 | XMS REPORT ---
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2 [facility] [id number], [place] [address] Sep, 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 [facility] [id number] [place] [address] 24117- 5148 Sep, Arthritis M19.90 [facility] [id number] [place] [address] 57247- 5629 Sep, [facility] [id number] [place] [address] 18578- 1547 Sep, Unspecified episodic mood disorder F39 [facility] [id number] [place] [address] 74577- 0622 Aug, [facility] [id number] [place] [address] [id number] Aug, [facility] [id number] [place] [address] 80544- 7473 Aug, Arthritis M19.90 [facility] [id number] [place] [address] 84284- 6058 Aug, [facility] [address] [place] [address] 50012- 2106 Aug, Obesity (BMI 30.0-34.9) E66.9 ; Unspecified episodic mood disorder F39 and Hypertension I10 [facility] [address], [place] [address] 5[address] Aug, Unspecified episodic mood disorder F39 [facility] [id number] [address] 9796 Aug, [facility] [id number] [place] [address] 39094- 2489 Jul, Unspecified episodic mood disorder F39 [facility] [id number], [place] [address] 3617 Jul, [facility] [address], [place] [address] 9542 Jul, Arthritis M19.90 [facility] [address], [place] [address] 2604 Jul, Left hip pain M25.552 ; Hypertension I10 ; Other obesity due to excess calories E66.09 and Body mass index (BMI) of 34.0-34.9 in adult Z68.34 [facility] [id number] [place] [address] 71119- 3949 Jul, Unspecified episodic mood disorder F39 [facility] [id number] [place] [address] 87400- 2780 June, Gastroesophageal reflux disease, esophagitis presence not specified K21.9 [facility] [id number] [place] [address] 68637- 1985 June, [facility] [id number] [place] [address] 06348- 7747 June, [facility] [id number] [place] [address] 33735- 8809 June, Arthritis M19.90 [facility] [id number] [place] [address] 94365- 9337 June, [facility] [id number] [place] [address] 67993- 6885 June, [facility] [id number] [place] [address] 58608- 2826 June, Unspecified episodic mood disorder F39 [facility] [id number] [address] 6276 May, Unspecified episodic mood disorder F39 [facility] [id number] [place] [address] 11901- 8747 May, [facility] [id number] [place] [address] 10748- 3267 May, Arthritis M19.90 [facility] [id number] [place] [address] 55376 -7905 May, Dysuria R30.0 ; Abscess L02.91 and Acute cystitis without hematuria N30.00 [facility] [id number] [place] [address] 62890- 3987 May, 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 ; Unspecified episodic mood disorder F39 ; Combined drug dependence excluding opioids, 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 ; Anxiety F41.9 and Other psychoactive substance dependence, 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 [facility] [address] 95771- 5053 May, [facility] [id number] [place] [address] 49369- 0766 May, 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 ; Unspecified episodic mood disorder F39 ; Combined drug dependence excluding opioids, 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 ; Other psychoactive substance dependence, 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 and Anxiety F41.9 [place] [facility] [address] [address]- 4531 May, Other chronic pain G89.29 ; Left hip pain M25.552 ; Hypertension I10 ; 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, 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 and Unspecified episodic mood disorder F39 [facility] [id number] [place] [address] 02316- 2836 Apr, [facility] [id number] [place] [address] 89524 -1429 Apr, Neck pain M54.2 ; Left hip pain M25.552 and Fall, initial encounter W19.XXXA [facility] [id number] [place] [address] 40345- 1984 Apr, Unspecified episodic mood disorder F39 ; Combined drug dependence excluding opioids, 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 ; Anxiety F41.9 ; Other psychoactive substance dependence, 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 and 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 [facility] [address] 30766- 9892 Apr, [facility] [address], [place] [address] 0071 Apr, Arthritis M19.90 and Unspecified episodic mood disorder F39 [facility] [id number] [place] [address] 19883- 2666 Apr, Unspecified episodic mood disorder F39 [facility] [id number] [place] [address] 82795- 7626 Apr, [facility] [id number] [place] [address] 96090- 9663 Apr, [facility] [id number] [place] [address] 37869- 5887 Apr, Unspecified episodic mood disorder F39 ; Combined drug dependence excluding opioids, 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 ; Anxiety F41.9 ; Other psychoactive substance dependence, 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 and 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 [facility] [id number] [place] [address] 85098- 7994 Mar, Unspecified episodic mood disorder F39 [facility] [id number] [place] [address] 81098- 4755 Mar, Gastroesophageal reflux disease, esophagitis presence not specified K21.9 [facility] [address] [place] [address] 28349- 6989 Mar, Arthritis M19.90 and Unspecified episodic mood disorder F39 [facility] [address], [place] [address] 4142 Feb, [facility] [address] [place] [address] 16404- 3456 Feb, [facility] [id number] [place] [address] 12299- 7498 Feb, [facility] [address], [place] [address]- 8405 Feb, Arthritis M19.90 [facility] [address], [place] [address]- 6112 Feb, Non-pressure chronic ulcer of right calf, 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 ; Unspecified episodic mood disorder F39 and Left hip pain M25.552 [facility] [id number] [place] [address] 09366- 2634 Feb, [place] [id number] [place] [address] 65324- 8299 Feb, [place] [facility] [id number] [place] [address] 55543- 5221 Jan, Arthritis M19.90 [facility] [facility] [id number] [place] [address] 78119- 5866 Jan, Left hip pain M25.552 and Non-pressure chronic ulcer of right calf, 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 [place] [facility] [id number] [place] [address] 78750- 6451 Jan, Chronic hepatitis C without hepatic coma B18.2 [facility] [id number] [place] [address] 98447- 0323 Jan, Encounter for immunization Z23 ; Venous insufficiency ( chronic) (peripheral) I87.2 ; Non-pressure chronic ulcer of unspecified calf limited to breakdown of skin L97.201 and Gastroesophageal reflux disease, esophagitis presence not specified K21.9 [place] [address], [place] [address]- 1721 Jan, [place] [address] [place] [address] 53469- 4944 Jan, Chronic hepatitis C without hepatic coma B18.2 and Encounter for immunization Z23 [facility] [facility] [address] [place] [address] 41223- 9490 Jan, Arthritis M19.90 [facility] [id number] [place] [address] 86187- 4738 Jan, [place] [address], [place] [address]- 5555 Dec, [facility] [id number] [place] [address] 41054- 0499 Dec, Unspecified episodic mood disorder F39 [facility] [address] [place] [address] 88066- 2727 Dec, Arthritis M19.90 [facility] [id number] [place] [address] 08850- 3710 Dec, Arthritis M19.90 [facility] [id number] [place] [address] 29796- 2323 Nov, [facility] [id number] [place] [address] 68993- 9591 Nov, [facility] [id number] [place] [address] 03411- 1474 Nov, Other psychoactive substance dependence, 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 ; 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, 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 and Chronic hepatitis C without hepatic coma B18.2 [facility] [id number] [place] [address] 93769- 0811 Nov, Arthritis M19.90 [facility] [address] [place] [address] 78327 -9664 Oct, Partial thickness burn of abdomen, initial encounter T21.22XA [facility] [address] [place] [address] 33804- 3763 Oct, [facility] [address] [place] [address] 70671- 3883 Sep, Arthritis M19.90 [facility] [address] [place] [address] 53897- 2241 Sep, [facility] [address] [place] [address] 52279- 9094 Sep, [facility] [address], [place] [address]- 6895 Sep, Unspecified episodic mood disorder F39 ; Chronic hepatitis C without hepatic coma B18.2 and Left hip pain M25.552 [facility] [id number] [place] [address] 01241- 9179 Sep, Arthritis M19.90 and Left hip pain M25.552 [facility] [id number] [place] [address] 33726- 0075 Aug, [facility] [id number] [place] [address] 39374- 7756 Aug, [facility] [id number] [place] [address] 54934- 9220 Aug, Chronic hepatitis C without hepatic coma B18.2 [facility] [id number] [place] [address] 90556- 9861 Aug, [facility] [id number] [place] [address] 49974- 5517 Aug, Chronic hepatitis C without hepatic coma B18.2 [facility] [id number] [place] [address] 85391- 4761 Aug, 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, 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 [facility] [id number] [place] [address] 09253- 1619 Aug, [facility] [id number] [place] [address] 17163- 8561 Aug, Chronic hepatitis C without hepatic coma B18.2 and Hypertension I10 [facility] [id number] [place] [address] 07721- 2062 Jul, [facility] [id number] [place] [address] 08866- 3889 June, [facility] [id number] [place] [address] 63132- 8234 Apr, Fibromyalgia M79.7 ; Left hip pain M25.552 and Decubitus ulcer of sacral region, stage 1 L89.151 [facility] [id number] [place] [address] 87498- 4302 Apr, [facility] [id number] [place] [address] 67007- 4129 Apr, [facility] [address] 12130- 0490 Feb, [facility] [address] 83211- 9604 Dec, Anxiety F41.9 ; Combined drug dependence excluding opioids, 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 and Unspecified episodic mood disorder F39 [facility] [id number] [place] [address] 62684- 4692 Dec, [facility] [address] 40010- 7960 Nov, [facility] [id number] [place] [address] 73575- 7120 Nov, [facility] [address] 69138- 3644 Nov, 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 and Anxiety F41.9 [facility] [id number] [place] [address] 06234- 2183 Oct, [facility] [id number] [place] [address] 71361 -5348 14 Oct, 2015 Open wound of left thigh, initial encounter S71.102A [facility] [address] 08875- 8892 Oct, [facility] [id number] [place] [address] 80555- 5920 Sep, Unspecified episodic mood disorder F39 ; Other disorder of impulse control 312.39 ; Combined drug dependence excluding opioids, 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 and Anxiety F41.9 [facility] [id number] [place] [address] 93674- 9603 Sep, Other disorder of impulse control 312.39 ; Combined drug dependence excluding opioids, 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 ; Anxiety F41.9 and Unspecified episodic mood disorder F39 [facility] [id number] [place] [address] 61016- 3746 Sep, Other chronic pain G89.29 [facility] [id number] [place] [address] 64206- 3581 Sep, [facility] [id number] [place] [address] 73371- 3251 Sep, [facility] [id number] [place] [address] 21543- 9080 Aug, [facility] [id number] [place] [address] 04300- 0828 Aug, [facility] [id number] [place] [address] 42042- 0984 Aug, [facility] [id number] [place] [address] 69118- 0302 Jul, [facility] [id number] [place] [address] 55782- 0660 Jul, [facility] [id number] [place] [address] 82676- 6402 Jul, [facility] [id number] [place] [address] 68717- 3362 Jul, Arthritis M19.90 ; Chronic hepatitis C without hepatic coma B18.2 and Left hip pain M25.552 [facility] [id number] [place] [address] 88725- 8447 Jul, Left knee pain M25.562 [facility] [id number] [place] [address] 53350- 7120 Jul, Combined drug dependence excluding opioids, 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 ; Anxiety F41.9 ; Other disorder of impulse control 312.39 and Unspecified episodic mood disorder F39 [facility] [address] [place] [address] 99481- 5166 13 Jul, 2015 Left knee pain M25.562 [facility] [id number] [place] [address] 18238- 7730 08 Jul, 2015 Left knee pain M25.562 and Left hip pain M25.552 [facility] [id number] [place] [address] 56240- 3489 Jul, [facility] [id number] [place] [address] 02117- 6897 June, [facility] [id number] [place] [address] 82524- 1792 June, Combinations of drug dependence excluding opioid type drug, unspecified abuse 304.80 ; Other disorder of impulse control 312.39 ; Unspecified episodic mood disorder F39 and Anxiety F41.9 [facility] [id number] [place] [address] 43554- 3583 June, Other fatigue R53.83 ; Headache R51 and Left knee pain M25.562 [facility] [address], [place] [address]- 8722 June, Unspecified episodic mood disorder F39 ; Combinations of drug dependence excluding opioid type drug, unspecified abuse 304.80 ; Other disorder of impulse control 312.39 and Anxiety F41.9 [facility] [address], [place] [address]- 8765 June, Anxiety F41.9 [facility] [id number] [place] [address] 36502- 8793 June, Pain in left knee M25.562 [facility] [address] [place] [address] 22787- 2611 June, Anxiety F41.9 and Combinations of drug dependence excluding opioid type drug, unspecified abuse 304.80 [facility] [address], [place] [address]- 7033 June, Unspecified episodic mood disorder 296.90 ; Combinations of drug dependence excluding opioid type drug, unspecified abuse 304.80 and Other disorder of impulse control 312.39 [facility] [address], [place] [address]- 4909 June, Anxiety F41.9 and Unspecified episodic mood disorder 296.90 [facility] [id number] [place] [address] 15267- 1482 May, Arthritis M19.90 [facility] [id number] [place] [address] 50486- 3466 May, Arthritis M19.90 [facility] [id number] [place] [address] 20149- 6016 May, Anxiety F41.9 ; Combinations of drug dependence excluding opioid type drug, unspecified abuse 304.80 and Other disorder of impulse control 312.39 [facility] [address] [place] [address] 67041- 6949 May, Left knee pain M25.562 [facility] [address] [place] [address] 95887- 1504 May, Arthritis M19.90 [facility] [address] [place] [address]- 8528 May, [facility] [id number] [place] [address] 74439- 9359 May, Anxiety F41.9 ; Unspecified episodic mood disorder 296.90 ; Combinations of drug dependence excluding opioid type drug, unspecified abuse 304.80 and Other disorder of impulse control 312.39 [facility] [address] [place] [address] 35501- 4426 May, Left knee pain M25.562 [facility] [id number] [place] [address] 74905- 0848 May, Left knee pain M25.562 ; Combinations of drug dependence excluding opioid type drug, unspecified abuse 304.80 ; Other disorder of impulse control 312.39 ; Fibromyalgia M79.7 ; Hypertension I10 ; Unspecified episodic mood disorder 296.90 and Left hip pain M25.552 [facility] [address] [place] [address] 44667- 1347 May, Unspecified episodic mood disorder 296.90 ; Other disorder of impulse control 312.39 ; Combinations of drug dependence excluding opioid type drug, unspecified abuse 304.80 and Anxiety F41.9 [facility] [id number] [place] [address] 05523- 1007 May, Left knee pain M25.562 ; Combinations of drug dependence excluding opioid type drug, unspecified abuse 304.80 ; Other disorder of impulse control 312.39 ; Fibromyalgia M79.7 ; Hypertension I10 ; Unspecified episodic mood disorder 296.90 and Left hip pain M25.552 [facility] [id number] [place] [address] 32299- 4238 May, Anxiety F41.9 ; Unspecified episodic mood disorder 296.90 ; Other disorder of impulse control 312.39 and Combinations of drug dependence excluding opioid type drug, unspecified abuse 304.80 [facility] [id number] [place] [address] 85912- 3496 Apr, 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 and 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, implants and grafts, initial encounter T84.82XA [place] [id number] [place] [address] 86152- 1309 Apr, Anxiety F41.9 ; Unspecified episodic mood disorder 296.90 ; Combinations of drug dependence excluding opioid type drug, unspecified abuse 304.80 and Other disorder of impulse control 312.39 [place] [id number] [place] [address] 76113- 6614 Apr, Arthritis M19.[address] [address]- [address]6 Apr, Anxiety F41.9 ; Unspecified episodic mood disorder 296.90 ; Combinations of drug dependence excluding opioid type drug, unspecified abuse 304.80 and Other disorder of impulse control 312.39 [facility] [id number] [place] [address] 76896- 8082 17 Apr, 2015 Arthritis M19.90 [facility] [id number] [place] [address] 98672- 1217 15 Apr, 2015 [facility] [id number] [place] [address] 68401- 5735 15 Apr, 2015 [facility] [id number] [place] [address] 14888- 4828 14 Apr, 2015 Unspecified episodic mood disorder 296.90 ; Combinations of drug dependence excluding opioid type drug, unspecified abuse 304.80 ; Other disorder of impulse control 312.39 and Anxiety F41.9 [facility] [id number] [place] [address] [phone] -[phone] Apr, Left knee pain M25.562 [facility] [id number] [place] [address] 06803- 9016 Apr, [facility] [id number] [place] [address] 84638- 7446 Mar, Unspecified episodic mood disorder 296.90 ; Anxiety F41.9 ; Other disorder of impulse control 312.39 and Combinations of drug dependence excluding opioid type drug, unspecified abuse 304.80 [facility] [id number] [place] [address] 46809- 7888 Mar, Hyperpigmentation L81.9 [facility] [id number] [place] [address] 48924- 2190 Mar, Arthritis M19.90 and Anxiety F41.9 [facility] [id number] [place] [address] 22790- 3436 Mar, Unspecified episodic mood disorder F39 ; Combined drug dependence excluding opioids, 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 ; 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 and Anxiety F41.9 [place] [address] [address] 1478 12 Mar, 2015 Well woman exam Z01.419 ; Other fatigue R53.83 ; Hot flashes N95.1 ; Depression, unspecified depression type F32.9 and Body mass index (BMI) of 23.0-23.9 in adult Z68.23 [address] [id number] [place] [address] 60170- 2046 11 Mar, 2015 Unspecified episodic mood disorder 296.90 ; Other disorder of impulse control 312.39 and Anxiety F41.9 [address] [id number] [place] [address] 10077- 2708 11 Mar, 2015 Well woman exam Z01.419 [...] of breast Z12.39 and Limited mobility Z74.09 [place] [id number] [place] [address] 88966- 3750 10 Mar, 2015 [place] [address], [place] [address]- 4243 Mar, [place] [id number] [place] [address] 17993- 3333 08 Mar, 2015 [place] [id number] [place] [address] 68313- 5030 03 Mar, 2015 Other specified complication of internal orthopedic prosthetic devices, implants and grafts, initial encounter T84.89XA ; Fibromyalgia M79.7 ; Hypertension I10 ; Anemia D64.9 ; Insomnia G47.00 ; Anxiety F41.9 ; Arthritis M19.90 and Migraine G43.909 [facility] [id number] [place] [address] 58347- 9021 Mar, [facility] [address] [address]- 1988 Feb, [facility] [address] 41010- 6328 Feb, Arthritis M19.90 and Anxiety F41.9 [facility] [address] 90759- 0221 Feb, [facility] [address] 53875- 9054 Feb, [facility] [address] 88922- 6035 Feb, [facility] [address] 69419- 9603 Feb, [facility] [address] 84324- 2146 Feb, Anxiety F41.9 [facility] [id number] [place] [address] 31616- 5294 Feb, [facility] [id number] [place] [address] 55723- 2088 Feb, [facility] [id number] [place] [address] 26925- 9406 Feb, 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 and Fibromyalgia M79.7 [facility] [id number] [place] [address] 62247- 6915 Feb, [facility] [address] 38655- 9112 Jan, [facility] [address], [place] [address]- 4667 Jan, [facility] [id number] [place] [address], [place] [address]- 7656 Jan, [facility] [address], [place] [address]- 0210 Jan, [facility] [id number] [place] [address] 31011- 7361 Jan, [facility] [id number] [place] [address] 01359- 6634 Jan, [facility] [id number] [place] [address] 77633- 0587 Jan, [facility] [id number] [place] [address] 93450- 5166 Jan, [facility] [id number] [place] [address] 07579- 4405 Dec, [facility] [address] [place] [address] 71959- 2505 Dec, Left knee pain M25.562 [facility] [id number] [place] [address] 94886- 9098 Dec, Left knee pain M25.562 [facility] [address] [place] [address] 52467- 5488 Dec, Fibromyalgia M79.7 ; Hypertension I10 and Arthritis M19.90 [facility] [address], [place] [address]- 8112 Dec, [facility] [id number] [place] [address] 72170- 7839 Dec, [facility] [address], [place] [address]- 3944 Dec, [facility] [id number] [place] [address] 69182- 2097 Dec, [facility] [address] [facility] [id number] [address]- 6619 Nov, [facility] [address] [facility] [id number] 0604 Nov, [facility] [address] [facility] [id number], [place] [address]- 8233 Nov, [facility] [address] [facility] [id number] [place] [address] 190779- 3231 Nov, Hypertension I10 [facility] [address] [facility] [id number] [place] [address] 69448- 5401 23 Oct, 2014 [facility] [id number], [place] [address]- 4931 Oct, [facility] [address], [place] [address]- 9347 Oct, [facility] [address], [place] [address]- 8580 Oct, [facility] [address] [place] [address] 61398- 1233 Oct, [facility] [address], [place] [address]- 2600 Sep, [facility] [address], [place] [address]- 3150 Sep, [facility] [id number], [place] [address]- 8485 Sep, Hip pain associated with recalled total hip arthroplasty hardware 996.77 [facility] [place] [facility] [address] [facility] [id number], [place] [address]- 7145 Sep, [facility] [address] [id number], [place] [address]- 6316 Sep, [facility] [address], [place] [address]- 3422 Sep, [facility] [place] [facility] [address] [id number] [place] [address]- 1146 Aug, [facility] [place] [facility] [address] [id number] [place] [address]- 8375 Jul, [facility] [place] [facility] [address] [id number] [place] [address]- 4824 June, [facility] [place] [facility] [address] [id number] [place] [address]- 2893 June, [facility] [place] [facility] [address] [id number] [place] [address]- 3321 June, [facility] [place] [facility] [address] [id number] [place] [address]- 5638 June, [facility] [place] [facility] [address] [id number] [place] [address]- 7960 June, [facility] [place] [facility] [address] [id number] [place] [address]- 5393 June, [facility] [place] [facility] [address] [id number] [place] [address]- 2335 May, [facility] [place] [facility] [address] [id number] [place] [address]- 1720 May, [facility] [place] [facility] [address] [id number] [place] [address]- 4936 May, [facility] [place] [facility] [address] [id number], [place] [address]- 6628 Apr, [facility] [place] [facility] [address] [id number] [place] [address]- 9515 Apr, [facility] [place] [facility] [address] [id number] [place] [address]- 2206 Apr, [facility] [place] [facility] [address] [id number] [place] [address]- 0074 Apr, [facility] [place] [facility] [address] [id number] [place] [address]- 3903 13 Apr, 2014 [facility] [place] [facility] [address] [id number] [place] [address]- 4480 13 Apr, 2014 [facility] [place] [facility] [address] [id number] [place] [address]- 1234 12 Apr, 2014 [facility] [place] [facility] [address] [id number] [place] [address]- 2425 Apr, [facility] [place] [facility] [address] [id number] [place] [address]- 5040 Apr, [facility] [place] [facility] [address] [id number] [place] [address]- 2841 05 Apr, 2014 [facility] [place] [facility] [address] [id number] [place] [address]- 9979 Apr, [facility] [place] [facility] [address] [id number] [place] [address]- 2142 26 Mar, 2014 [facility] [place] [facility] [address] [id number] [place] [address]- 7782 Mar, [facility] [place] [facility] [address] [id number] [place] [address]- 5936 16 Mar, 2014 [facility] [place] [facility] [address] [facility] [id number] [place] [address]- 4821 16 Mar, 2014 [facility] [place] [facility] [address] [id number] [place] [address]- 9487 Mar, [facility] [place] [facility] [address] [id number] [place] [address]- 6312 Mar, [facility] [place] [facility] [address] [id number] [place] [address]- 9238 Feb, [facility] [place] [facility] [address] [facility] [id number] [place] [address]- 7626 Feb, [facility] [place] [facility] [address] [facility] [id number] [place] [address]- 7254 Feb, [facility] [place] [facility] [address] [id number] [place] [address]- 1978 Feb, [facility] [place] [facility] [address] [id number] [place] [address]- 1148 Jan, [facility] [place] [facility] [address] [id number] [place] [address]- 0850 Jan, [facility] [place] [facility] [address] [id number] [place] [address]- 2270 Jan, [facility] [place] [facility] [address] [id number] [place] [address]- 6003 Jan, [facility] [place] [facility] [address] [id number] [place] [address]- 2163 Dec, [facility] [place] [facility] [address] [id number] [place] [address]- 8051 Dec, [facility] [place] [facility] [address] [id number] [place] [address]- 8478 Dec, [facility] [place] [facility] [address] [id number] [place] [address]- 4357 Dec, [facility] [place] [facility] [address] [id number] [place] [address]- 0934 Dec, [facility] [place] [facility] [address] [id number] [place] [address]- 7255 Dec, [facility] [place] [facility] [address] [id number], [place] [address]- 1763 Dec, [facility] [place] [facility] [address] [id number] [place] [address]- 7940 Dec, [facility] [place] [facility] [address] [id number] [place] [address]- 7920 Dec, [facility] [place] [facility] [address] [id number] [place] [address]- 6240 Dec, [facility] [place] [facility] [address] [id number] [place] [address]- 3343 07 Dec, 2013 [facility] [place] [facility] [address] [id number] [place] [address]- 0813 31 Nov, 2013 [facility] [place] [facility] [address] [id number] [place] [address]- 3111 28 Nov, 2013 [facility] [place] [facility] [address] [id number] [place] [address]- 0560 28 Nov, 2013 [facility] [place] [facility] [address] [id number] [place] [address]- 9424 17 Nov, 2013 [facility] [place] [facility] [address] [id number] [place] [address]- 9087 17 Nov, 2013 [facility] [place] [facility] [address] [id number] [place] [address]- 4838 15 Nov, 2013 [facility] [place] [facility] [address] [id number] [place] [address]- 4823 15 Nov, 2013 [facility] [place] [facility] [address] [id number] [place] [address]- 9173 15 Nov, 2013 [facility] [place] [facility] [address] [id number] [place] [address]- 7560 15 Nov, 2013 [facility] [place] [facility] [address] [id number] [place] [address]- 3245 14 Nov, 2013 [facility] [place] [facility] [address] [id number] [place] [address]- 1766 14 Nov, 2013 [facility] [place] [facility] [address] [id number] [place] [address]- 1862 14 Nov, 2013 [facility] [place] [facility] [address] [id number] [place] [address]- 1655 14 Nov, 2013 [facility] [place] [facility] [address] [id number] [place] [address]- 5157 13 Nov, 2013 [facility] [place] [facility] [address] [id number] [place] [address]- 0155 13 Nov, 2013 [facility] [place] [facility] [address] [id number] [place] [address]- 5657 11 Nov, 2013 [facility] [place] [facility] [address] [id number] [place] [address]- 0089 11 Nov, 2013 [facility] [place] [facility] [address] [id number] [place] [address]- 8610 Nov, 2013 [facility] [place] [facility] [address] [id number] [place] [address]- 7111 Nov, 2013 [facility] [place] [facility] [address] [id number] [place] [address]- 3771 Nov, 2013 [facility] [place] [facility] [address] [id number] [place] [address]- 2754 Nov, [facility] [place] [facility] [address] [id number] [place] [address]- 6242 30 Oct, 2013 [facility] [place] [facility] [address] [id number] [place] [address]- 2962 30 Oct, 2013 [facility] [place] [facility] [address] [id number] [place] [address]- 0372 26 Oct, 2013 [facility] [place] [facility] [address] [id number] [place] [address]- 1074 26 Oct, 2013 [facility] [place] [facility] [address] [id number] [place] [address]- 9825 22 Oct, 2013 [facility] [place] [facility] [address] [id number] [place] [address]- 2543 22 Oct, 2013 [facility] [place] [facility] [address] [id number] [place] [address]- 7345 18 Sep, 2013 [facility] [place] [facility] [address] [id number] [place] [address]- 2546 18 Oct, 2013 [facility] [place] [facility] [address] [id number] [place] [address]- 254 18 Sep, 2013 [facility] [place] [facility] [address] [id number] [place] [address]- 3035 18 Oct, 2013 [facility] [place] [facility] [address] [id number] [place] [address]- 8670 Oct, [facility] [place] [facility] [address] [id number] [place] [address]- 1760 Oct, [facility] [place] [facility] [address] [id number] [place] [address]- 5933 Oct, [facility] [place] [facility] [address] [id number] [place] [address]- 2398 Oct, [facility] [place] [facility] [address] [id number] [place] [address]- 2784 Sep, [facility] [place] [facility] [address] [id number] [place] [address]- 2104 Sep, [facility] [place] [facility] [address] [id number] [place] [address]- 5861 Sep, [facility] [place] [facility] [address] [id number] [place] [address]- 5062 Sep, [facility] [place] [facility] [address] [id number] [place] [address]- 7414 Sep, [facility] [place] [facility] [address] [id number] [place] [address]- 5394 Sep, [facility] [place] [facility] [address] [id number] [place] [address]- 4706 Sep, [facility] [place] [facility] [address] [id number] [place] [address]- 5477 Sep, [facility] [place] [facility] [address] [id number] [place] [address]- 3267 Sep, [facility] [place] [facility] [address] [id number] [place] [address]- 7721 Sep, [facility] [place] [facility] [address] [id number] [place] [address]- 5211 Sep, [facility] [place] [facility] [address] [id number] [place] [address]- 1928 Sep, [facility] [place] [facility] [address] [id number] [place] [address]- 4817 Sep, [facility] [place] [facility] [address] [id number] [place] [address]- 3535 Sep, [facility] [place] [facility] [address] [id number] [place] [address]- 0885 Sep, [facility] [place] [facility] [address] [id number] [place] [address]- 5606 Sep, [facility] [place] [facility] [address] [id number] [place] [address]- 7158 Sep, [facility] [place] [facility] [address] [id number] [place] [address]- 3177 Sep, [facility] [place] [facility] [address] [id number] [place] [address]- 8350 Aug, [facility] [place] [facility] [address] [id number] [place] [address]- 2352 Aug, [facility] [place] [facility] [address] [id number] [place] [address]- 1079 Aug, [facility] [place] [facility] [address] [id number] [place] [address]- 8412 Aug, [facility] [place] [facility] [address] [id number] [place] [address]- 5754 Aug, [facility] [place] [facility] [address] [id number] [place] [address]- 5351 Aug, [facility] [place] [facility] [address] [id number] [place] [address]- 6230 Jul, [facility] [place] [facility] [address] [id number] [place] [address]- 9512 Jul, [facility] [place] [facility] [address] [id number] [place] [address]- 5896 Jul, [facility] [place] [facility] [address] [id number] [place] [address]- 8122 Jul, [facility] [place] [facility] [address] [id number] [place] [address]- 7349 June, [facility] [place] [facility] [address] [id number] [place] [address]- 2330 June, [facility] [place] [facility] [address] [id number] [place] [address]- 7828 June, [facility] [place] [facility] [address] [id number] [place] [address]- 0224 June, [facility] [place] [facility] [address] [id number] [place] [address]- 9715 June, [facility] [place] [facility] [address] [id number] [place] [address]- 6500 June, [facility] [place] [facility] [address] [id number] [place] [address]- 0620 June, [facility] [place] [facility] [address] [id number] [place] [address]- 7165 May, [facility] [place] [facility] [address] [id number] [place] [address]- 4999 May, [facility] [place] [facility] [address] [id number] [place] [address]- 2911 May, [facility] [place] [facility] [address] [id number] [place] [address]- 0324 May, [facility] [place] [facility] [address] [id number] [place] [address]- 0500 May, [facility] [place] [facility] [address] [id number] [place] [address]- 1702 May, [facility] [place] [facility] [address] [id number] [place] 7461 Apr, [facility] [place] [facility] [address] [id number] [place] [address]- 9053 31 Apr, 2013 [facility] [place] [facility] [address] [id number] [place] [address]- 3237 Apr, [facility] [place] [facility] [address] [id number] [place] 0317 28 Apr, 2013 [facility] [place] [facility] [address] [id number] [place] [address]- 7876 14 Apr, 2013 [facility] [place] [facility] [address] [id number] [place] [address]- 6791 14 Apr, 2013 [facility] [place] [facility] [address] [id number] [place] [address]- 5772 Apr, [facility] [place] [facility] [address] [id number] [place] [address]- 9030 Apr, [facility] [place] [facility] [address] [id number] [place] [address]- 3343 Apr, [facility] [place] [facility] [address] [id number] [place] [address]- 4685 10 Apr, 2013 [facility] [place] [facility] [address] [id number] [place] [address] 04 Apr, 2013 [facility] [place] [facility] [address] [id number] [place] [address] Apr, [facility] [place] [facility] [address] [id number] [place] [address] Apr, [facility] [place] [facility] [address] [id number] [place] [address] Apr, [facility] [place] [facility] [address] [id number] [place] [address] Mar, [facility] [place] [facility] [address] [id number] [place] [address] Mar, [facility] [place] [facility] [address] [id number] [place] [address] 05 Mar, 2013 [facility] [place] [facility] [address] [id number] [place] [address] Feb, [facility] [place] [facility] [address] [id number] [place] [address] Feb, [facility] [place] [facility] [address] [id number] [place] [address] Feb, [facility] [place] [facility] [address] [id number] [place] [address] Feb, [facility] [place] [facility] [address] [id number] [place] [address] 96[address] Feb, [facility] [place] [facility] [address] [id number] [place] [address] Feb, [facility] [place] [facility] [address] [id number] [place] [address]- 120[address] Feb, [facility] [place] [facility] [address] [id number] [place] [address]57 Feb, [facility] [place] [facility] [address] [id number] [place] [address] Feb, [facility] [place] [facility] [address] [id number] [place] [address]- 1029 Feb, [facility] [place] [facility] [address] [id number] [place] [address] Jan, [facility] [place] [facility] [address] [id number] [place] [address] Jan, [facility] [place] [facility] [address] [id number] [place] [address] Jan, [facility] [place] [facility] [address] [id number] [place] [id number] [address] Jan, [facility] [place] [facility] [address] [id number] [place] [address] Jan, [facility] [place] [facility] [address] [id number] [place] [address] Jan, 2013 [facility] [address] [id number] [place] [address]- [address] Jan, [facility] [address] [id number] [place] [address] 8106 Jan, [facility] [address] [facility] [id number] [place] [address]- [address] Jan, [facility] [place] [facility] [address] [id number] [place] [address] 3981 Jan, [facility] [address] [id number] [place] [address]- [address] 17 Jan, 2013 [facility] [address] [id number] [place] [address]- 3198 Jan, [facility] [address] [id number] [place] [address]- [address]79 16 Jan, 2013 [facility] [place] [facility] [address] [id number], [place] [address] Jan, [facility] [place] [facility] [address] [id number] [place] [address]- 1233 Jan, [facility] [place] [facility] [address] [id number] [place] [address] 6[address] Jan, [facility] [place] [facility] [address] [id number], [place] [address] Jan, [facility] [place] [facility] [address] [id number], [place] [address]- [address]68 05 Jan, 2013 [facility] [place] [facility] [address] [id number], [place] [address] Jan, [facility] [place] [facility] [address] [id number], [place] [address]- [address] 05 Jan, 2013 [facility] [place] [facility] [address] [facility] [id number], [place] [address]- [address] 05 Jan, 2013 [facility] [place] [facility] [address] [id number] [place] [address]- [address] Dec, [facility] [place] [facility] [address] [id number] [place] [address]- [address] Dec, [facility] [place] [facility] [address] [id number] [place] [address]- 99[address] Dec, [facility] [place] [facility] [address] [id number] [place] [address]- 8957 Dec, [facility] [place] [facility] [address] [id number] [place] [address]- 3982 Dec, [facility] [place] [facility] [address] [id number] [place] [address]- [address]35 Dec, [facility] [place] [facility] [address] [id number] [place] [address]- [address] Dec, [facility] [place] [facility] [address] [id number] [place] [address]- 1994 Dec, [facility] [place] [facility] [address] [id number] [place] [address]- [address] Dec, [facility] [place] [facility] [address] [id number] [place] [address]- 8530 Dec, [facility] [place] [facility] [address] [id number] [place] [address]- 0911 Nov, [facility] [place] [facility] [address] [id number] [place] [address]- 6270 Nov, [facility] [place] [facility] [address] [id number], [place] [address] Nov, [facility] [place] [facility] [address] [id number] [place] [address] 63[address] Nov, [facility] [place] [facility] [address] [id number] [place] [address]- 7194 Nov, [facility] [place] [facility] [address] [id number] [place] [address]- 1185 Nov, [facility] [place] [facility] [address] [id number] [place] [address]- 3075 Nov, [facility] [place] [facility] [address] [id number] [place] [address] Nov, [facility] [place] [facility] [address] [id number] [place] [address]- 5867 Nov, [facility] [place] [facility] [address] [id number] [place] [address] 4710 Nov, [facility] [address] [id number] [place] [address]- 7766 Oct, [facility] [place] [facility] [address] [id number] [place] [address]- 9107 Oct, [facility] [address] [id number] [place] [address]- 9140 Oct, [facility] [place] [facility] [address] [id number] [place] [address]- 5[address] Oct, [facility] [place] [facility] [address] [id number] [place] [address]- 8761 Oct, [facility] [place] [facility] [address] [id number] [place] [address] Sep, [facility] [place] [facility] [address] [id number] [place] [address] Sep, [facility] [place] [facility] [address] [id number] [place] [address] Aug, [facility] [place] [facility] [address] [id number] [place] [address] Aug, [facility] [place] [facility] [address] [id number] [place] [address]- 9520 Aug, [facility] [place] [facility] [address] [id number] [place] [address]- 1265 Aug, [facility] [place] [facility] [address] [id number] [place] [address] Aug, [facility] [address] [id number] [place] [address] Aug, [facility] [address] [id number] [place] [address]- 1584 Aug, [facility] [address] [id number] [place] [address]- 9111 Jul, [facility] [address] [id number] [place] [address]- 0856 Jul, [facility] [address] [id number] [place] [address] June, [facility] [address] [id number] [place] [address]- 2416 June, [facility] [address] [id number] [place] [address] June, [facility] [address] [id number] [place] [address]- 1408 June, [facility] [address] [id number] [place] [address]- 1725 June, [facility] [address] [id number] [place] [address]- 0993 June, [facility] [address] [id number] [place] [address]- 1802 June, [facility] [place] [facility] [address] [id number] [place] [address]- 4907 June, [facility] [place] [facility] [address] [id number] [place] [address]- 7971 June, [facility] [place] [facility] [address] [id number] [place] [address]- 7740 June, [facility] [place] [facility] [address] [id number] [place] [address]- 2738 June, [facility] [place] [facility] [address] [id number] [place] [address]- 5620 29 May, 2012 [facility] [address] [id number] [place] [address]- 8022 May, [facility] [address] [id number] [place] [address]- 6566 May, [facility] [address] [id number] [place] [address]- 5896 May, [facility] [address] [id number] [place] [address]- 0567 Apr, [facility] [address] [id number] [place] [address]- 3704 Apr, [facility] [address] [id number] [place] [address]- 4180 Apr, [facility] [address] [id number] [place] [address]- 4527 Mar, [facility] [address] [id number] [place] [address]- 9075 Mar, [facility] [address] [id number] [place] [address]- 8180 Feb, [facility] [address] [id number] [place] [address]- 9239 Feb, [facility] [address] [id number] [place] [address]- 8272 Feb, [facility] [address] [id number] [place] [address]- 8171 Feb, [facility] [place] [facility] [address] [id number] [place] [address]- 0295 16 Feb, 2012 [facility] [place] [facility] [address] [id number] [place] [address]- 6836 14 Feb, 2012 [facility] [address] [id number] [place] [address]- 4079 Feb, [facility] [place] [facility] [address] [id number] [place] [address]- 2018 Jan, [facility] [place] [facility] [address] [id number] [place] [address]- 6883 Jan, [facility] [place] [facility] [address] [id number] [place] [address]- 1488 Jan, [facility] [place] [facility] [address] [id number] [place] [address]- 0888 Jan, [facility] [place] [facility] [address] [id number] [place] [address]- 0202 Jan, [facility] [place] [facility] [address] [id number] [place] [address]- 8645 Jan, [facility] [place] [facility] [address] [id number] [place] [address]- 3755 Jan, [facility] [place] [facility] [address] [id number] [place] [address]- 0610 Jan, [facility] [place] [facility] [address] [id number] [place] [address]- 9331 Jan, [facility] [place] [facility] [address] [id number] [place] [address]- 9851 Jan, [facility] [place] [facility] [address] [id number] [place] [address]- 6444 Jan, [facility] [place] [facility] [address] [id number], [place] [address]- [address] Dec, [facility] [place] [facility] [address] [id number] [place] [address]- 6722 Dec, [facility] [place] [facility] [address] [id number] [place] [address]- 7083 Dec, [facility] [place] [facility] [address] [id number] [place] [address]- 2532 Dec, [facility] [place] [facility] [address] [id number] [place] [address]- 0066 22 Nov, 2011 [facility] [place] [facility] [address] [id number] [place] [address]- 1366 22 Nov, 2011 [facility] [place] [facility] [address] [id number] [place] [address]- 3006 08 Nov, 2011 [facility] [place] [facility] [address] [id number] [place] [address]- 2196 27 Oct, 2011 [facility] [place] [facility] [address] [id number] [place] [address] 2546 24 Oct, 2011 [facility] [place] [facility] [address] [id number] [place] [address]- 4166 21 Oct, 2011 [facility] [place] [facility] [address] [id number] [place] [address]- 8086 10 Oct, 2011 [facility] [place] [facility] [address] [id number] [place] [address]- 3542 07 Oct, 2011 [facility] [place] [facility] [address] [id number] [place] [address]- 4346 04 Oct, 2011 [facility] [place] [facility] [address] [id number] [place] [address]- 9728 04 Oct, 2011 [facility] [place] [facility] [address] [id number] [place] [address]- 6910 29 Sep, 2011 [facility] [place] [facility] [address] [id number] [place] [address]- 2026 Sep, [facility] [place] [facility] [address] [id number] [place] [address] 2547 Sep, [facility] [place] [facility] [address] [id number] [place] [address]- 2686 Sep, [facility] [place] [facility] [address] [id number] [place] [address]- 2936 Sep, [facility] [place] [facility] [address] [id number] [place] [address]- 3092 30 Aug, 2011 [facility] [place] [facility] [address] [id number] [place] [address]- 8233 26 Aug, 2011 [facility] [place] [facility] [address] [id number] [place] [address]- 5047 17 Aug, 2011 [facility] [place] [facility] [address] [id number] [place] [address]- 3726 16 Aug, 2011 [facility] [place] [facility] [address] [id number] [place] [address]- 8286 13 Aug, 2011 [facility] [place] [facility] [address] [id number] [place] [address]- 2160 Aug, [facility] [place] [facility] [address] [id number] [place] [address]- 5372 Aug, [facility] [place] [facility] [address] [id number] [place] [address]- 0744 28 Jul, 2011 [facility] [place] [facility] [address] [id number] [place] [address]- 0293 Jul, [facility] [place] [facility] [address] [id number] [place] [address]- 4174 Jul, [facility] [place] [facility] [address] [id number] [place] [address]- 7731 Jul, [facility] [place] [facility] [address] [id number] [place] [address]- 5552 Jul, [facility] [place] [facility] [address] [id number] [place] [address]- 3426 Jul, [facility] [place] [facility] [address] [id number] [place] [address]- 4633 07 Jul, 2011 [facility] [place] [facility] [address] [id number] [place] [address]- 3185 06 Jul, 2011 [facility] [place] [facility] [address] [id number] [place] [address]- 3442 05 Jul, 2011 [facility] [place] [facility] [address] [id number] [place] [address]- 2198 June, [facility] [address] [id number] [place] [address]- 8890 June, [facility] [place] [facility] [address] [id number] [place] [address] June, [facility] [place] [facility] [address] [id number] [place] [address]- 3714 June, [facility] [place] [facility] [address] [id number] [place] [address]- 0684 June, [facility] [address] [id number] [place] [address]- 2693 June, [facility] [address] [id number] [place] [address]- 9429 June, [facility] [address] [id number] [place] [address]- 4741 June, [facility] [place] [facility] [address] [id number] [place] [address]- 9348 May, [facility] [place] [facility] [address] [id number] [place] [address]- 6995 May, [facility] [place] [facility] [address] [id number] [place] [address]- 8881 May, [facility] [place] [facility] [address] [id number] [place] [address]- 1060 May, [facility] [place] [facility] [address] [id number] [place] [address]- 6693 16 May, 2011 [facility] [place] [facility] [address] [id number] [place] [address]- 3545 May, [facility] [place] [facility] [address] [id number] [place] [address]- 8246 May, [facility] [place] [facility] [address] [id number] [place] [address]- 7331 Apr, [facility] [place] [facility] [address] [id number] [place] [address]- 6044 Apr, [facility] [address] [id number] [place] [address]- 1776 Apr, [facility] [place] [facility] [address] [id number] [place] [address]- 9206 Apr, [facility] [address] [id number] [place] [address]- 9698 Apr, [facility] [place] [facility] [address] [id number] [place] [address]- 8808 Apr, [facility] [place] [facility] [address] [id number] [place] [address]- 1033 Apr, [facility] [place] [facility] [address] [id number] [place] [address]- 5902 Mar, [facility] [place] [facility] [address] [id number] [place] [address]- 2273 Mar, [facility] [address] [id number] [place] [address]- 5891 14 Mar, 2011 [facility] [place] [facility] [address] [id number] [place] [address]- 6947 13 Mar, 2011 [facility] [place] [facility] [address] [id number] [place] [address]- 6668 Mar, [facility] [place] [facility] [address] [facility] [id number] [place] [address]- 8307 Mar, [facility] [place] [facility] [address] [id number] [place] [address]- 9622 Mar, [facility] [place] [facility] [address] [facility] [id number] [place] [address]- 6667 Feb, [facility] [place] [facility] [address] [id number] [place] [address]- 7376 Feb, [facility] [place] [facility] [address] [facility] [id number] [place] [address]- 3388 Feb, [facility] [address] [id number] [place] [address]- 1055 Feb, [facility] [place] [facility] [address] [id number] [place] [address]- 6756 Feb, [facility] [address] [id number] [place] [address]- 4923 Feb, [facility] [place] [facility] [address] [id number] [place] [address]- 3578 Feb, [facility] [address] [id number] [place] [address]- 7593 Feb, [facility] [address] [id number] [place] [address]- 6909 Feb, [facility] [address] [id number] [place] [address]- 3745 Feb, [facility] [address] [id number] [place] [address]- 1652 Jan, [facility] [address] [id number] [place] [address]- 8470 Jan, [facility] [place] [facility] [address] [id number] [place] [address]- 4882 Jan, [facility] [place] [facility] [address] [id number] [place] [address]- 7899 Jan, [facility] [place] [facility] [address] [id number], [place] [address]- 1668 Jan, [facility] [place] [facility] [address] [id number] [place] [address]- 3066 Jan, [facility] [place] [facility] [address] [id number] [place] [address]- 5291 15 Jan, 2011 [facility] [place] [facility] [address] [id number] [place] [address]306 15 Jan, 2011 [facility] [place] [facility] [address] [id number] [place] [address]- 6878 08 Jan, 2011 [facility] [place] [facility] [address] [id number] [place] [address]- 4048 Jan, [facility] [place] [facility] [address] [id number] [place] [address]- 7451 Jan, [facility] [place] [facility] [address] [id number] [place] [address]- 3391 Dec, [facility] [place] [facility] [address] [id number] [place] [address]- 1015 17 Dec, 2010 [facility] [place] [facility] [address] [id number] [place] [address]- 8976 17 Dec, 2010 [facility] [place] [facility] [address] [id number] [place] [address]- 3451 16 Dec, 2010 [facility] [place] [facility] [address] [id number] [place] [address]- 0256 14 Dec, 2010 [facility] [place] [facility] [address] [id number] [place] [address]- 1956 Dec, [facility] [place] [facility] [address] [id number] [place] [address]- 3550 Dec, [facility] [place] [facility] [address] [facility] [id number] [place] [address]- 0683 Dec, [facility] [place] [facility] [address] [id number] [place] [address]- 1110 Dec, [facility] [place] [facility] [address] [id number] [place] [address]- 1786 Nov, [facility] [place] [facility] [address] [id number] [place] [address]- 8006 Nov, [facility] [place] [facility] [address] [id number] [place] [address]- 4681 Nov, [facility] [place] [facility] [address] [id number] [place] [address]- 6449 24 Nov, 2010 [facility] [place] [facility] [address] [id number] [place] [address]- 4258 24 Nov, 2010 [facility] [place] [facility] [address] [id number] [place] [address]- 6207 13 Nov, 2010 [facility] [place] [facility] [address] [id number] [place] [address] Aug, [facility] [place] [facility] [address] [id number] [place] [address]- 0039 14 Feb, 2010 [facility] [place] [facility] [address] [id number] [place] 1336 14 Jan, 2010 [facility] [place] [facility] [address] [id number] [place] [address]- 9242 Jan, [facility] [place] [facility] [address] [id number] [place] [address]- 5584 Jan, [facility] [place] [facility] [address] [id number] [place] [address]- 4029 Jan, [facility] [place] [facility] [address] [id number] [place] [address]- 3618 Jan, [facility] [place] [facility] [address] [id number] [place] [address]- 9340 Dec, [facility] [place] [facility] [address] [id number] [place] [address]- 5444 Dec, [facility] [place] [facility] [address] [id number], [place] [address]- 8195 Dec, [facility] [place] [facility] [address] [id number] [place] [address]- 6446 Dec, [facility] [place] [facility] [address] [id number] [place] 2018 Nov, [facility] [place] [facility] [address] [id number] [place] [address] Nov, [facility] [place] [facility] [address] [id number], [place] [address]- 3371 Nov, IMMUNIZATIONS No Known Immunizations SOCIAL HISTORY Never Assessed REASON FOR VISIT Medication refill request PLAN OF CARE VITAL SIGNS MEDICATIONS Medication Instructions Dosage Frequency Start Date End Date Duration Status Lyrica 150 MG Orally 3 times a day 1 capsule 8h 28 days Active Nabumetone 500 mg Orally Twice a day, pc 1 tablet 30 Active RESULTS No Results PROCEDURES No [...]
--- OUTSIDE RECORDS SUMMARY | 2018-01-13 20:46 | XMS REPORT ---
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 Active 150086523 Problem Hypertension I10 Active 12580001 Problem Arthritis M19.90 Active 1621160 Problem 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 Active 60980556 Problem Anxiety F41.9 Active 07360435 Problem Unspecified episodic mood disorder F39 Active 78283729 Problem Left hip pain M25.552 Active 86996183 ALLERGIES No Information ENCOUNTERS Encounter Location Date Diagnosis [facility] [id number] [address] Sep, [facility] [id number] [address] Sep, Chronic hepatitis C without hepatic coma B18.2 [facility] [id number] [address] 9[address] Sep, 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 [id number] [place] [address] [id number] Aug, [facility] [id number] [place] [address] 61860- 0332 Aug, Arthritis M19.90 [facility] [id number] [place] [address] 10240- 8580 Aug, [facility] [id number] [place] [address] 01998- 3021 Aug, Obesity (BMI 30.0-34.9) E66.9 ; Unspecified episodic mood disorder F39 and Hypertension I10 [facility] [address] [address] 47[address] Aug, Unspecified episodic mood disorder F39 [facility] [id number] [address] 9415 Aug, [facility] [id number] [place] [address] 93421- 2527 Jul, Unspecified episodic mood disorder F39 [facility] [id number] [address] 1271 Jul, [facility] [address] [address] 7970 Jul, Arthritis M19.90 [facility] [address] [address] 8670 Jul, Left hip pain M25.552 ; Hypertension I10 ; Other obesity due to excess calories E66.09 and Body mass index (BMI) of 34.0-34.9 in adult Z68.34 [facility] [id number] [place] [address] 43303- 0772 Jul, Unspecified episodic mood disorder F39 [facility] [id number] [place] [address] 43015- 4137 June, Gastroesophageal reflux disease, esophagitis presence not specified K21.9 [facility] [id number] [place] [address] 65432- 7585 June, [facility] [id number] [place] [address] 66018- 4071 June, [facility] [id number] [place] [address] 51058- 3016 June, Arthritis M19.90 [facility] [id number] [place] [address] 24370- 6280 June, [facility] [id number] [place] [address] 30654- 3626 June, [facility] [id number] [place] [address] 01885- 2179 June, Unspecified episodic mood disorder F39 [facility] [id number] [address] 5221 May, Unspecified episodic mood disorder F39 [facility] [id number] [place] [address] 41651- 6001 May, [facility] [id number] [place] [address] 04005- 4097 May, Arthritis M19.90 [facility] [id number] [place] [address] 08216 -7588 May, Dysuria R30.0 ; Abscess L02.91 and Acute cystitis without hematuria N30.00 [facility] [id number] [place] [address] 34332- 1538 May, 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 ; Unspecified episodic mood disorder F39 ; Combined drug dependence excluding opioids, 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 ; Anxiety F41.9 and Other psychoactive substance dependence, 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 [facility] [address] 16377- 9528 May, [facility] [id number] [place] [address] 06971- 0284 May, 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 ; Unspecified episodic mood disorder F39 ; Combined drug dependence excluding opioids, 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 ; Other psychoactive substance dependence, 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 and Anxiety F41.9 [address] [facility] [address] 77761- 7333 May, Other chronic pain G89.29 ; Left hip pain M25.552 ; Hypertension I10 ; 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, 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 and Unspecified episodic mood disorder F39 [facility] [id number] [place] [address] 93902- 5809 Apr, [facility] [id number] [place] [address] 81796 -1969 Apr, Neck pain M54.2 ; Left hip pain M25.552 and Fall, initial encounter W19.XXXA [facility] [id number] [place] [address] 43762- 5306 Apr, Unspecified episodic mood disorder F39 ; Combined drug dependence excluding opioids, 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 ; Anxiety F41.9 ; Other psychoactive substance dependence, 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 and 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 [facility] [address] 68216- 5971 Apr, [facility] [address] [address]- 2175 Apr, Arthritis M19.90 and Unspecified episodic mood disorder F39 [facility] [id number] [place] [address] 21331- 7907 Apr, Unspecified episodic mood disorder F39 [facility] [id number] [place] [address] 61907- 9210 Apr, [facility] [id number] [place] [address] 10115- 9172 Apr, [facility] [id number] [place] [address] 86405- 1922 Apr, Unspecified episodic mood disorder F39 ; Combined drug dependence excluding opioids, 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 ; Anxiety F41.9 ; Other psychoactive substance dependence, 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 and 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 [facility] [id number] [place] [address] 68437- 4589 Mar, Unspecified episodic mood disorder F39 [facility] [id number] [place] [address] 48910- 8559 Mar, Gastroesophageal reflux disease, esophagitis presence not specified K21.9 [facility] [id number] [place] [address] 07671- 9310 Mar, Arthritis M19.90 and Unspecified episodic mood disorder F39 [facility] [address] [address]- 9861 Feb, [facility] [id number] [place] [address] 43500- 0061 Feb, [facility] [id number] [place] [address] 37086- 5539 Feb, [facility] [address] [address]- 6230 Feb, Arthritis M19.90 [facility] [address] [address]- 1681 Feb, Non-pressure chronic ulcer of right calf, 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 ; Unspecified episodic mood disorder F39 and Left hip pain M25.552 [facility] [id number] [place] [address] 95868- 5004 Feb, [facility] [id number] [place] [address] 14585- 7091 Feb, [place] [facility] [id number] [place] [address] 66822- 4969 Jan, Arthritis M19.90 [place] [facility] [id number] [place] [address] 66603- 4669 Jan, Left hip pain M25.552 and Non-pressure chronic ulcer of right calf, 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 [place] [facility] [id number] [place] [address] 00506- 9432 Jan, Chronic hepatitis C without hepatic coma B18.2 [facility] [id number] [place] [address] 47362- 4469 Jan, Encounter for immunization Z23 ; Venous insufficiency ( chronic) (peripheral) I87.2 ; Non-pressure chronic ulcer of unspecified calf limited to breakdown of skin L97.201 and Gastroesophageal reflux disease, esophagitis presence not specified K21.9 [place] [address] [address]- 0545 Jan, [place] [id number] [place] [address] 11426- 5030 Jan, Chronic hepatitis C without hepatic coma B18.2 and Encounter for immunization Z23 [place] [facility] [id number] [place] [address] 99871- 8936 Jan, Arthritis M19.90 [facility] [id number] [place] [address] 44094- 5165 Jan, [place] [address] [address]- 3678 Dec, [facility] [id number] [place] [address] 45088- 6685 Dec, Unspecified episodic mood disorder F39 [facility] [id number] [place] [address] 92294- 1539 Dec, Arthritis M19.90 [facility] [id number] [place] [address] 12630- 0008 Dec, Arthritis M19.90 [facility] [id number] [place] [address] 20495- 3257 Nov, [facility] [id number] [place] [address] 26368- 2636 Nov, [facility] [id number] [place] [address] 20596- 2786 Nov, Other psychoactive substance dependence, 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 ; 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, 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 and Chronic hepatitis C without hepatic coma B18.2 [facility] [id number] [place] [address] 54578- 4184 Nov, Arthritis M19.90 [facility] [id number] [place] [address] 03520 -2269 Oct, Partial thickness burn of abdomen, initial encounter T21.22XA [facility] [id number] [place] [address] 26555- 5345 Oct, [facility] [id number] [place] [address] 23769- 3952 Sep, Arthritis M19.90 [facility] [id number] [place] [address] 10611- 1376 Sep, [facility] [id number] [place] [address] 54667- 1267 Sep, [facility] [address] [address]- 0783 Sep, Unspecified episodic mood disorder F39 ; Chronic hepatitis C without hepatic coma B18.2 and Left hip pain M25.552 [facility] [id number] [place] [address] 43059- 3701 Sep, Arthritis M19.90 and Left hip pain M25.552 [facility] [id number] [place] [address] 41524- 8183 Aug, [facility] [id number] [place] [address] 00263- 4851 Aug, [facility] [id number] [place] [address] 79763- 7073 Aug, Chronic hepatitis C without hepatic coma B18.2 [facility] [id number] [place] [address] 52180- 8970 Aug, [facility] [id number] [place] [address] 17461- 5044 Aug, Chronic hepatitis C without hepatic coma B18.2 [facility] [id number] [place] [address] 89433- 4860 Aug, 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, 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 [facility] [id number] [place] [address] 72744- 2980 Aug, [facility] [id number] [place] [address] 14588- 9322 Aug, Chronic hepatitis C without hepatic coma B18.2 and Hypertension I10 [facility] [id number] [place] [address] 10563- 1679 Jul, [facility] [id number] [place] [address] 64834- 5935 June, [facility] [id number] [place] [address] 11191- 4861 Apr, Fibromyalgia M79.7 ; Left hip pain M25.552 and Decubitus ulcer of sacral region, stage 1 L89.151 [facility] [id number] [place] [address] 70126- 7232 Apr, [facility] [id number] [place] [address] 79544- 6151 Apr, [facility] [address] 74121- 4436 Feb, [facility] [address] 58919- 1541 Dec, Anxiety F41.9 ; Combined drug dependence excluding opioids, 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 and Unspecified episodic mood disorder F39 [facility] [id number] [place] [address] 46101- 3276 Dec, [facility] [address] 78387- 8691 Nov, [facility] [id number] [place] [address] 23386- 3279 Nov, [facility] [address] 03283- 6352 Nov, 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 and Anxiety F41.9 [facility] [id number] [place] [address] 54928- 4079 Oct, [facility] [id number] [place] [address] 98564 -1823 14 Oct, 2015 Open wound of left thigh, initial encounter S71.102A [facility] [address] 41139- 2391 Oct, [facility] [id number] [place] [address] 57730- 5018 Sep, Unspecified episodic mood disorder F39 ; Other disorder of impulse control 312.39 ; Combined drug dependence excluding opioids, 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 and Anxiety F41.9 [facility] [id number] [place] [address] 92751- 9185 Sep, Other disorder of impulse control 312.39 ; Combined drug dependence excluding opioids, 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 ; Anxiety F41.9 and Unspecified episodic mood disorder F39 [facility] [id number] [place] [address] 22402- 1227 Sep, Other chronic pain G89.29 [facility] [id number] [place] [address] 37967- 5587 Sep, [facility] [id number] [place] [address] 14495- 1414 Sep, [facility] [id number] [place] [address] 85825- 3489 Aug, [facility] [id number] [place] [address] 81041- 6688 Aug, [facility] [id number] [place] [address] 42743- 2919 Aug, [facility] [id number] [place] [address] 72868- 6854 Jul, [facility] [id number] [place] [address] 91207- 5059 Jul, [facility] [id number] [place] [address] 83789- 9910 Jul, [facility] [id number] [place] [address] 04815- 4474 Jul, Arthritis M19.90 ; Chronic hepatitis C without hepatic coma B18.2 and Left hip pain M25.552 [facility] [id number] [place] [address] 13004- 1341 Jul, Left knee pain M25.562 [facility] [id number] [place] [address] 44117- 2346 Jul, Combined drug dependence excluding opioids, 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 ; Anxiety F41.9 ; Other disorder of impulse control 312.39 and Unspecified episodic mood disorder F39 [facility] [id number] [place] [address] 00501- 8218 13 Jul, 2015 Left knee pain M25.562 [facility] [id number] [place] [address] 02665- 7458 08 Jul, 2015 Left knee pain M25.562 and Left hip pain M25.552 [facility] [id number] [place] [address] 32968- 0841 Jul, [facility] [id number] [place] [address] 23160- 6617 June, [facility] [id number] [place] [address] 48853- 9289 June, Combinations of drug dependence excluding opioid type drug, unspecified abuse 304.80 ; Other disorder of impulse control 312.39 ; Unspecified episodic mood disorder F39 and Anxiety F41.9 [facility] [id number] [place] [address] 71491- 2804 June, Other fatigue R53.83 ; Headache R51 and Left knee pain M25.562 [facility] [address] [address]- 6363 June, Unspecified episodic mood disorder F39 ; Combinations of drug dependence excluding opioid type drug, unspecified abuse 304.80 ; Other disorder of impulse control 312.39 and Anxiety F41.9 [facility] [address] [address]- 8464 June, Anxiety F41.9 [facility] [id number] [place] [address] 34335- 8538 June, Pain in left knee M25.562 [facility] [id number] [place] [address] 41643- 6989 June, Anxiety F41.9 and Combinations of drug dependence excluding opioid type drug, unspecified abuse 304.80 [facility] [address] [address]- 4153 June, Unspecified episodic mood disorder 296.90 ; Combinations of drug dependence excluding opioid type drug, unspecified abuse 304.80 and Other disorder of impulse control 312.39 [facility] [address] [address]- 7649 June, Anxiety F41.9 and Unspecified episodic mood disorder 296.90 [facility] [id number] [place] [address] 25607- 3516 May, Arthritis M19.90 [facility] [id number] [place] [address] 94721- 9006 May, Arthritis M19.90 [facility] [id number] [place] [address] 53263- 9476 May, Anxiety F41.9 ; Combinations of drug dependence excluding opioid type drug, unspecified abuse 304.80 and Other disorder of impulse control 312.39 [facility] [id number] [place] [address] 94515- 2182 May, Left knee pain M25.562 [facility] [id number] [place] [address] 25063- 7921 May, Arthritis M19.90 [facility] [address] [address]- 9907 May, [facility] [id number] [place] [address] 96524- 4156 May, Anxiety F41.9 ; Unspecified episodic mood disorder 296.90 ; Combinations of drug dependence excluding opioid type drug, unspecified abuse 304.80 and Other disorder of impulse control 312.39 [facility] [id number] [place] [address] 01812- 3032 May, Left knee pain M25.562 [facility] [id number] [place] [address] 01333- 5793 May, Left knee pain M25.562 ; Combinations of drug dependence excluding opioid type drug, unspecified abuse 304.80 ; Other disorder of impulse control 312.39 ; Fibromyalgia M79.7 ; Hypertension I10 ; Unspecified episodic mood disorder 296.90 and Left hip pain M25.552 [facility] [id number] [place] [address] 28026- 1911 May, Unspecified episodic mood disorder 296.90 ; Other disorder of impulse control 312.39 ; Combinations of drug dependence excluding opioid type drug, unspecified abuse 304.80 and Anxiety F41.9 [facility] [id number] [place] [address] 16408- 0361 May, Left knee pain M25.562 ; Combinations of drug dependence excluding opioid type drug, unspecified abuse 304.80 ; Other disorder of impulse control 312.39 ; Fibromyalgia M79.7 ; Hypertension I10 ; Unspecified episodic mood disorder 296.90 and Left hip pain M25.552 [place] [facility] [id number] [place] [address] May, Anxiety F41.9 ; Unspecified episodic mood disorder 296.90 ; Other disorder of impulse control 312.39 and Combinations of drug dependence excluding opioid type drug, unspecified abuse 304.80 [facility] [id number] [place] [id number] Apr, 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 and 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, implants and grafts, initial encounter T84.82XA [facility] [facility] [id number] [place] [id number] Apr, Anxiety F41.9 ; Unspecified episodic mood disorder 296.90 ; Combinations of drug dependence excluding opioid type drug, unspecified abuse 304.80 and Other disorder of impulse control 312.39 [place] [id number] [place] [address] Apr, Arthritis M19.[address] [address] Apr, Anxiety F41.9 ; Unspecified episodic mood disorder 296.90 ; Combinations of drug dependence excluding opioid type drug, unspecified abuse 304.80 and Other disorder of impulse control 312.39 [facility] [id number] [place] [address] 39868- 8208 17 Apr, 2015 Arthritis M19.90 [facility] [id number] [place] [address] 97155- 6020 15 Apr, 2015 [facility] [id number] [place] [address] 20840- 7243 15 Apr, 2015 [facility] [id number] [place] [address] 39832- 4833 14 Apr, 2015 Unspecified episodic mood disorder 296.90 ; Combinations of drug dependence excluding opioid type drug, unspecified abuse 304.80 ; Other disorder of impulse control 312.39 and Anxiety F41.9 [facility] [id number] [place] [address] 18667 -8591 Apr, Left knee pain M25.562 [facility] [id number] [place] [address] 39042- 6647 Apr, [facility] [id number] [place] [address] 43832- 6217 Mar, Unspecified episodic mood disorder 296.90 ; Anxiety F41.9 ; Other disorder of impulse control 312.39 and Combinations of drug dependence excluding opioid type drug, unspecified abuse 304.80 [facility] [id number] [place] [address] 02937- 0924 Mar, Hyperpigmentation L81.9 [facility] [id number] [place] [address] 20774- 8083 Mar, Arthritis M19.90 and Anxiety F41.9 [facility] [id number] [place] [address] 83844- 7648 Mar, Unspecified episodic mood disorder F39 ; Combined drug dependence excluding opioids, 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 ; 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 and Anxiety F41.9 [place] [address] [address] 99[address] 12 Mar, 2015 Well woman exam Z01.419 ; Other fatigue R53.83 ; Hot flashes N95.1 ; Depression, unspecified depression type F32.9 and Body mass index (BMI) of 23.0-23.9 in adult Z68.23 [id number] [place] [address] 19998- 6195 11 Mar, 2015 Unspecified episodic mood disorder 296.90 ; Other disorder of impulse control 312.39 and Anxiety F41.9 [id number] [place] [address] 64311- 6903 11 Mar, 2015 Well woman exam Z01.419 [...] of breast Z12.39 and Limited mobility Z74.09 [place] [id number] [place] [address] 66525- 7920 10 Mar, 2015 [place] [address] [address]- 9863 Mar, [place] [id number] [place] [address] 45957- 9911 08 Mar, 2015 [place] [id number] [place] [address] 17144- 6078 03 Mar, 2015 Other specified complication of internal orthopedic prosthetic devices, implants and grafts, initial encounter T84.89XA ; Fibromyalgia M79.7 ; Hypertension I10 ; Anemia D64.9 ; Insomnia G47.00 ; Anxiety F41.9 ; Arthritis M19.90 and Migraine G43.909 [facility] [id number] [place] [address] 39652- 4401 Mar, [facility] [address] 75466- 2716 Feb, [facility] [address] 36540- 9799 Feb, Arthritis M19.90 and Anxiety F41.9 [facility] [address] 40591- 0462 Feb, [facility] [address] 40753- 9668 Feb, [facility] [address] 42887- 5667 Feb, [facility] [address] 56909- 9817 Feb, [facility] [address] 29993- 9972 Feb, Anxiety F41.9 [facility] [id number] [place] [address] 72468- 5243 Feb, [facility] [id number] [place] [address] 61523- 1424 Feb, [facility] [id number] [place] [address] 64916- 9991 Feb, 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 and Fibromyalgia M79.7 [facility] [id number] [place] [address] 99659- 0522 Feb, [facility] [address] 67895- 5662 Jan, [facility] [address] [address]- 9147 Jan, [facility] [id number] [place] [address], [place] [address]- 5464 Jan, [facility] [address] [address]- 7643 Jan, [facility] [id number] [place] [address] 18725- 5343 Jan, [facility] [id number] [place] [address] 11752- 8906 Jan, [facility] [id number] [place] [address] 41073- 7991 Jan, [facility] [id number] [place] [address] 95623- 6165 Jan, [facility] [id number] [place] [address] 08777- 2204 Dec, [facility] [id number] [place] [address] 38616- 7269 Dec, Left knee pain M25.562 [facility] [id number] [place] [address] 62836- 2787 Dec, Left knee pain M25.562 [facility] [id number] [place] [address] 34409- 2690 Dec, Fibromyalgia M79.7 ; Hypertension I10 and Arthritis M19.90 [facility] [address] [address]- 8186 Dec, [facility] [id number] [place] [address] 62507- 2373 Dec, [facility] [address] [address]- 1941 Dec, [facility] [id number] [place] [address] 58273- 0823 Dec, [facility] [address] [facility] [id number] [address]- 5866 Nov, [facility] [address] [facility] [id number] 8029 Nov, [facility] [address] [facility] [id number] [address]- 2874 Nov, [facility] [address] [facility] [id number] [place] [address] 439865- 6402 Nov, Hypertension I10 [facility] [address] [facility] [id number] [place] [address] 38196- 3387 23 Oct, 2014 [facility] [id number] [address]- 8366 Oct, [facility] [address] [address]- 6513 Oct, [facility] [address] [address]- 9628 Oct, [facility] [id number] [place] [address] 51434- 6071 Oct, [facility] [address] [address]- 7374 Sep, [facility] [address] [address]- 8286 Sep, [facility] [id number] [address]- 8037 Sep, Hip pain associated with recalled total hip arthroplasty hardware 996.77 [facility] [place] [facility] [address] [facility] [id number] [address]- 9948 Sep, [facility] [address] [id number] [address]- 9408 Sep, [facility] [address] [address]- 5204 Sep, [facility] [place] [facility] [address] [id number] [place] [address]- 9746 Aug, [facility] [place] [facility] [address] [id number] [place] [address]- 3491 Jul, [facility] [place] [facility] [address] [id number] [place] [address]- 2732 June, [facility] [place] [facility] [address] [id number] [place] [address]- 2613 June, [facility] [place] [facility] [address] [id number] [place] [address]- 1437 June, [facility] [place] [facility] [address] [id number] [place] [address]- 2685 June, [facility] [place] [facility] [address] [id number] [place] [address]- 0914 June, [facility] [place] [facility] [address] [id number] [place] [address]- 6446 June, [facility] [place] [facility] [address] [id number] [place] [address]- 6231 May, [facility] [place] [facility] [address] [id number] [place] [address]- 3451 May, [facility] [place] [facility] [address] [id number] [place] [address]- 9040 May, [facility] [place] [facility] [address] [id number] [address]- 7809 Apr, [facility] [place] [facility] [address] [id number] [place] [address]- 7689 Apr, [facility] [place] [facility] [address] [id number] [place] [address]- 7177 Apr, [facility] [place] [facility] [address] [id number] [place] [address]- 0192 Apr, [facility] [place] [facility] [address] [id number] [place] [address]- 7532 13 Apr, 2014 [facility] [place] [facility] [address] [id number] [place] [address]- 9853 13 Apr, 2014 [facility] [place] [facility] [address] [id number] [place] [address]- 8447 12 Apr, 2014 [facility] [place] [facility] [address] [id number] [place] [address]- 6419 Apr, [facility] [place] [facility] [address] [id number] [place] [address]- 6535 Apr, [facility] [place] [facility] [address] [id number] [place] [address]- 9918 05 Apr, 2014 [facility] [place] [facility] [address] [id number] [place] [address]- 4313 Apr, [facility] [place] [facility] [address] [id number] [place] [address]- 4983 26 Mar, 2014 [facility] [place] [facility] [address] [id number] [place] [address]- 9879 Mar, [facility] [place] [facility] [address] [id number] [place] [address]- 8520 16 Mar, 2014 [facility] [place] [facility] [address] [facility] [id number] [place] [address]- 4239 16 Mar, 2014 [facility] [place] [facility] [address] [id number] [place] [address]- 7637 Mar, [facility] [place] [facility] [address] [id number] [place] [address]- 0197 Mar, [facility] [place] [facility] [address] [id number] [place] [address]- 5062 Feb, [facility] [place] [facility] [address] [facility] [id number] [place] [address]- 8236 Feb, [facility] [place] [facility] [address] [facility] [id number] [place] [address]- 0600 Feb, [facility] [place] [facility] [address] [id number] [place] [address]- 5800 Feb, [facility] [place] [facility] [address] [id number] [place] [address]- 5999 Jan, [facility] [place] [facility] [address] [id number] [place] [address]- 2836 Jan, [facility] [place] [facility] [address] [id number] [place] [address]- 5953 Jan, [facility] [place] [facility] [address] [id number] [place] [address]- 7967 Jan, [facility] [place] [facility] [address] [id number] [place] [address]- 3717 Dec, [facility] [place] [facility] [address] [id number] [place] [address]- 5117 Dec, [facility] [place] [facility] [address] [id number] [place] [address]- 6610 Dec, [facility] [place] [facility] [address] [id number] [place] [address]- 2580 Dec, [facility] [place] [facility] [address] [id number] [place] [address]- 5294 Dec, [facility] [place] [facility] [address] [id number] [place] [address]- 6257 Dec, [facility] [place] [facility] [address] [id number] [address]- 7691 Dec, [facility] [place] [facility] [address] [id number] [place] [address]- 6205 Dec, [facility] [place] [facility] [address] [id number] [place] [address]- 8903 Dec, [facility] [place] [facility] [address] [id number] [place] [address]- 9842 Dec, [facility] [place] [facility] [address] [id number] [place] [address]- 5158 07 Dec, 2013 [facility] [place] [facility] [address] [id number] [place] [address]- 3773 31 Nov, 2013 [facility] [place] [facility] [address] [id number] [place] [address]- 2378 28 Nov, 2013 [facility] [place] [facility] [address] [id number] [place] [address]- 4364 28 Nov, 2013 [facility] [place] [facility] [address] [id number] [place] [address]- 8093 17 Nov, 2013 [facility] [place] [facility] [address] [id number] [place] [address]- 9110 17 Nov, 2013 [facility] [place] [facility] [address] [id number] [place] [address]- 4398 15 Nov, 2013 [facility] [place] [facility] [address] [id number] [place] [address]- 8649 15 Nov, 2013 [facility] [place] [facility] [address] [id number] [place] [address]- 3288 15 Nov, 2013 [facility] [place] [facility] [address] [id number] [place] [address]- 4981 15 Nov, 2013 [facility] [place] [facility] [address] [id number] [place] [address]- 4568 14 Nov, 2013 [facility] [place] [facility] [address] [id number] [place] [address]- 0363 14 Nov, 2013 [facility] [place] [facility] [address] [id number] [place] [address]- 0965 14 Nov, 2013 [facility] [place] [facility] [address] [id number] [place] [address]- 7540 14 Nov, 2013 [facility] [place] [facility] [address] [id number] [place] [address]- 4052 13 Nov, 2013 [facility] [place] [facility] [address] [id number] [place] [address]- 6139 13 Nov, 2013 [facility] [place] [facility] [address] [id number] [place] [address]- 9125 11 Nov, 2013 [facility] [place] [facility] [address] [id number] [place] [address]- 2942 11 Nov, 2013 [facility] [place] [facility] [address] [id number] [place] [address]- 3085 Nov, 2013 [facility] [place] [facility] [address] [id number] [place] [address]- 6536 Nov, 2013 [facility] [place] [facility] [address] [id number] [place] [address]- 6744 Nov, 2013 [facility] [place] [facility] [address] [id number] [place] [address]- 5127 Nov, [facility] [place] [facility] [address] [id number] [place] [address]- 9131 30 Oct, 2013 [facility] [place] [facility] [address] [id number] [place] [address]- 5406 30 Oct, 2013 [facility] [place] [facility] [address] [id number] [place] [address]- 4379 26 Oct, 2013 [facility] [place] [facility] [address] [id number] [place] [address]- 7721 26 Oct, 2013 [facility] [place] [facility] [address] [id number] [place] [address]- 7965 22 Oct, 2013 [facility] [place] [facility] [address] [id number] [place] [address]- 2542 22 Oct, 2013 [facility] [place] [facility] [address] [id number] [place] [address]- 8415 18 Sep, 2013 [facility] [place] [facility] [address] [id number] [place] [address]- 2546 18 Oct, 2013 [facility] [place] [facility] [address] [id number] [place] [address]- 2548 18 Sep, 2013 [facility] [place] [facility] [address] [id number] [place] [address]- 9050 18 Oct, 2013 [facility] [place] [facility] [address] [id number] [place] [address]- 9201 Oct, [facility] [place] [facility] [address] [id number] [place] [address]- 1816 Oct, [facility] [place] [facility] [address] [id number] [place] [address]- 9202 Oct, [facility] [place] [facility] [address] [id number] [place] [address]- 3499 Oct, [facility] [place] [facility] [address] [id number] [place] [address]- 5632 Sep, [facility] [place] [facility] [address] [id number] [place] [address]- 8192 Sep, [facility] [place] [facility] [address] [id number] [place] [address]- 1934 Sep, [facility] [place] [facility] [address] [id number] [place] [address]- 8544 Sep, [facility] [place] [facility] [address] [id number] [place] [address]- 1552 Sep, [facility] [place] [facility] [address] [id number] [place] [address]- 4671 Sep, [facility] [place] [facility] [address] [id number] [place] [address]- 9817 Sep, [facility] [place] [facility] [address] [id number] [place] [address]- 3461 Sep, [facility] [place] [facility] [address] [id number] [place] [address]- 0103 Sep, [facility] [place] [facility] [address] [id number] [place] [address]- 0985 Sep, [facility] [place] [facility] [address] [id number] [place] [address]- 0110 Sep, [facility] [place] [facility] [address] [id number] [place] [address]- 4844 Sep, [facility] [place] [facility] [address] [id number] [place] [address]- 9963 Sep, [facility] [place] [facility] [address] [id number] [place] [address]- 7843 Sep, [facility] [place] [facility] [address] [id number] [place] [address]- 9243 Sep, [facility] [place] [facility] [address] [id number] [place] [address]- 3906 Sep, [facility] [place] [facility] [address] [id number] [place] [address]- 0864 Sep, [facility] [place] [facility] [address] [id number] [place] [address]- 7839 Sep, [facility] [place] [facility] [address] [id number] [place] [address]- 6935 Aug, [facility] [place] [facility] [address] [id number] [place] [address]- 4914 Aug, [facility] [place] [facility] [address] [id number] [place] [address]- 5285 Aug, [facility] [place] [facility] [address] [id number] [place] [address]- 9561 Aug, [facility] [place] [facility] [address] [id number] [place] [address]- 9199 Aug, [facility] [place] [facility] [address] [id number] [place] [address]- 4301 Aug, [facility] [place] [facility] [address] [id number] [place] [address]- 9132 Jul, [facility] [place] [facility] [address] [id number] [place] [address]- 8114 Jul, [facility] [place] [facility] [address] [id number] [place] [address]- 9598 Jul, [facility] [place] [facility] [address] [id number] [place] [address]- 4894 Jul, [facility] [place] [facility] [address] [id number] [place] [address]- 7317 June, [facility] [place] [facility] [address] [id number] [place] [address]- 1747 June, [facility] [place] [facility] [address] [id number] [place] [address]- 0285 June, [facility] [place] [facility] [address] [id number] [place] [address]- 2059 June, [facility] [place] [facility] [address] [id number] [place] [address]- 5604 June, [facility] [place] [facility] [address] [id number] [place] [address]- 3962 June, [facility] [place] [facility] [address] [id number] [place] [address] June, [facility] [place] [facility] [address] [id number] [place] [address] May, [facility] [place] [facility] [address] [id number] [place] [address] May, [facility] [place] [facility] [address] [id number] [place] [address] May, [facility] [place] [facility] [address] [id number] [place] [address] May, [facility] [place] [facility] [address] [id number] [place] [address] May, [facility] [place] [facility] [address] [id number] [place] [address] May, [facility] [place] [facility] [address] [id number] [place] [address] Apr, [facility] [place] [facility] [address] [id number] [place] [address] 31 Apr, 2013 [facility] [place] [facility] [address] [id number] [place] [address] Apr, [facility] [place] [facility] [address] [id number] [place] [address] 28 Apr, 2013 [facility] [place] [facility] [address] [id number] [place] [address] 14 Apr, 2013 [facility] [place] [facility] [address] [id number] [place] [address] 14 Apr, 2013 [facility] [place] [facility] [address] [id number] [place] [address] Apr, [facility] [place] [facility] [address] [id number] [place] [address] Apr, [facility] [place] [facility] [address] [id number] [place] [address]- [address] Apr, [facility] [place] [facility] [address] [id number] [place] [address] 10 Apr, 2013 [facility] [place] [facility] [address] [id number] [place] [address]- [address] 04 Apr, 2013 [facility] [place] [facility] [address] [id number] [place] [address] Apr, [facility] [place] [facility] [address] [id number] [place] [address] Apr, [facility] [place] [facility] [address] [id number] [place] [address] Apr, [facility] [place] [facility] [address] [id number] [place] [address] Mar, [facility] [place] [facility] [address] [id number] [place] [address] Mar, [facility] [place] [facility] [address] [id number] [place] [address] 05 Mar, 2013 [facility] [place] [facility] [address] [id number] [place] [address] Feb, [facility] [place] [facility] [address] [id number] [place] [address] Feb, [facility] [place] [facility] [address] [id number] [place] [address] Feb, [facility] [place] [facility] [address] [id number] [place] [address] Feb, [facility] [place] [facility] [address] [id number] [place] [address] Feb, [facility] [place] [facility] [address] [id number] [place] [address] Feb, [facility] [place] [facility] [address] [id number] [place] [address] Feb, [facility] [place] [facility] [address] [id number] [place] [address] Feb, [facility] [place] [facility] [address] [id number] [place] [address] Feb, [facility] [place] [facility] [address] [id number] [place] [address] Feb, [facility] [place] [facility] [address] [id number] [place] [address] Jan, [facility] [place] [facility] [address] [id number] [place] [address] Jan, [facility] [place] [facility] [address] [id number] [place] [address] Jan, [facility] [place] [facility] [address] [id number] [place] [id number] [address] Jan, [facility] [place] [facility] [address] [id number] [place] [address] Jan, [facility] [place] [facility] [address] [id number] [place] [address] Jan, 2013 [facility] [address] [id number] [place] [address] Jan, [facility] [address] [id number] [place] [address] Jan, [facility] [address] [facility] [id number] [place] [address] Jan, [facility] [place] [facility] [address] [id number] [place] [address]- [address] Jan, [facility] [address] [id number] [place] [address] 17 Jan, 2013 [facility] [address] [id number] [place] [address] Jan, [facility] [address] [id number] [place] [address] 16 Jan, 2013 [facility] [place] [facility] [address] [id number] [address] Jan, [facility] [place] [facility] [address] [id number] [place] [address] Jan, [facility] [place] [facility] [address] [id number] [place] [address] Jan, [facility] [place] [facility] [address] [id number] [address] Jan, [facility] [place] [facility] [address] [id number] [place] [address] 05 Jan, 2013 [facility] [place] [facility] [address] [id number] [place] [address] Jan, [facility] [place] [facility] [address] [id number] [place] [address] 05 Jan, 2013 [facility] [place] [facility] [address] [facility] [id number] [address] 05 Jan, 2013 [facility] [place] [facility] [address] [id number] [place] [address] Dec, [facility] [place] [facility] [address] [id number] [place] [address] Dec, [facility] [place] [facility] [address] [id number] [place] [address] Dec, [facility] [place] [facility] [address] [id number] [place] [address] Dec, [facility] [place] [facility] [address] [id number] [place] [address] 6289 Dec, [facility] [place] [facility] [address] [id number] [place] [address] 8290 Dec, [facility] [place] [facility] [address] [id number] [place] [address] 7524 Dec, [facility] [place] [facility] [address] [id number] [place] [address] 8404 Dec, [facility] [place] [facility] [address] [id number] [place] [address]- 1518 Dec, [facility] [place] [facility] [address] [id number] [place] [address] 0901 Dec, [facility] [place] [facility] [address] [id number] [place] [address] 3486 Nov, [facility] [place] [facility] [address] [id number] [place] [address] 7266 Nov, [facility] [place] [facility] [address] [id number] [address] Nov, [facility] [place] [facility] [address] [id number] [place] [address] 7573 Nov, [facility] [place] [facility] [address] [id number] [place] [address] 4549 Nov, [facility] [place] [facility] [address] [id number] [place] [address]- 4133 Nov, [facility] [place] [facility] [address] [id number] [place] [address] 9753 Nov, [facility] [place] [facility] [address] [id number] [place] [address] Nov, [facility] [place] [facility] [address] [id number] [place] [address]- 0760 Nov, [facility] [place] [facility] [address] [id number] [place] [address]- 6888 Nov, [facility] [address] [id number] [place] [address] 4080 Oct, [facility] [place] [facility] [address] [id number] [place] [address] 8663 Oct, [facility] [address] [id number] [place] [address]- 5947 Oct, [facility] [place] [facility] [address] [id number] [place] [address]- 6608 Oct, [facility] [place] [facility] [address] [id number] [place] [address]- 5434 Oct, [facility] [place] [facility] [address] [id number] [place] [address]- 4514 Sep, [facility] [place] [facility] [address] [id number] [place] [address]- 6899 Sep, [facility] [place] [facility] [address] [id number] [place] [address]- 2250 Aug, [facility] [place] [facility] [address] [id number] [place] [address]- 9561 Aug, [facility] [place] [facility] [address] [id number] [place] [address]- 2090 Aug, [facility] [place] [facility] [address] [id number] [place] [address]- 6877 Aug, [facility] [place] [facility] [address] [id number] [place] [address]- 3344 Aug, [facility] [address] [id number] [place] [address] Aug, [facility] [address] [id number] [place] [address]- 9937 Aug, [facility] [address] [id number] [place] [address]- 8813 Jul, [facility] [address] [id number] [place] [address]- 2491 Jul, [facility] [address] [id number] [place] [address] June, [facility] [address] [id number] [place] [address]- 1768 June, [facility] [address] [id number] [place] [address] June, [facility] [address] [id number] [place] [address] 4341 June, [facility] [address] [id number] [place] [address]- 4666 June, [facility] [address] [id number] [place] [address]- 4182 June, [facility] [address] [id number] [place] [address]- 0038 June, [facility] [place] [facility] [address] [id number] [place] [address]- 6741 June, [facility] [place] [facility] [address] [id number] [place] [address]- 3704 June, [facility] [place] [facility] [address] [id number] [place] [address]- 6312 June, [facility] [place] [facility] [address] [id number] [place] [address]- 5132 June, [facility] [place] [facility] [address] [id number] [place] [address]- 1813 29 May, 2012 [facility] [address] [id number] [place] [address]- 4114 May, [facility] [address] [id number] [place] [address]- 0571 May, [facility] [address] [id number] [place] [address]- 2697 May, [facility] [address] [id number] [place] [address]- 4423 Apr, [facility] [address] [id number] [place] [address]- 4863 Apr, [facility] [address] [id number] [place] [address]- 7351 Apr, [facility] [address] [id number] [place] [address]- 4160 Mar, [facility] [address] [id number] [place] [address]- 9610 Mar, [facility] [address] [id number] [place] [address]- 4597 Feb, [facility] [address] [id number] [place] [address]- 0185 Feb, [facility] [address] [id number] [place] [address]- 0138 Feb, [facility] [address] [id number] [place] [address]- 2747 Feb, [facility] [place] [facility] [address] [id number] [place] [address]- 7950 16 Feb, 2012 [facility] [place] [facility] [address] [id number] [place] [address]- 0666 14 Feb, 2012 [facility] [address] [id number] [place] [address]- 7168 Feb, [facility] [place] [facility] [address] [id number] [place] [address]- 9377 Jan, [facility] [place] [facility] [address] [id number] [place] [address]- 2353 Jan, [facility] [place] [facility] [address] [id number] [place] [address]- 2942 Jan, [facility] [place] [facility] [address] [id number] [place] [address]- 4766 Jan, [facility] [place] [facility] [address] [id number] [place] [address]- 7442 Jan, [facility] [place] [facility] [address] [id number] [place] [address]- 9493 Jan, [facility] [place] [facility] [address] [id number] [place] [address]- 1196 Jan, [facility] [place] [facility] [address] [id number] [place] [address]- 7887 Jan, [facility] [place] [facility] [address] [id number] [place] [address]- 5655 Jan, [facility] [place] [facility] [address] [id number] [place] [address]- 9699 Jan, [facility] [place] [facility] [address] [id number] [place] [address]- 1750 Jan, [facility] [place] [facility] [address] [id number] [address]- 7757 Dec, [facility] [place] [facility] [address] [id number] [place] [address]- 6205 Dec, [facility] [place] [facility] [address] [id number] [place] [address]- 7778 Dec, [facility] [place] [facility] [address] [id number] [place] [address]- 8764 Dec, [facility] [place] [facility] [address] [id number] [place] [address]- 5591 22 Nov, 2011 [facility] [place] [facility] [address] [id number] [place] [address]- 3906 22 Nov, 2011 [facility] [place] [facility] [address] [id number] [place] [address]- 4816 08 Nov, 2011 [facility] [place] [facility] [address] [id number] [place] [address]- 6296 27 Oct, 2011 [facility] [place] [facility] [address] [id number] [place] [address] 2546 24 Oct, 2011 [facility] [place] [facility] [address] [id number] [place] [address]- 7986 21 Oct, 2011 [facility] [place] [facility] [address] [id number] [place] [address]- 0016 10 Oct, 2011 [facility] [place] [facility] [address] [id number] [place] [address]- 1022 07 Oct, 2011 [facility] [place] [facility] [address] [id number] [place] [address]- 7579 04 Oct, 2011 [facility] [place] [facility] [address] [id number] [place] [address]- 5721 04 Oct, 2011 [facility] [place] [facility] [address] [id number] [place] [address]- 0268 29 Sep, 2011 [facility] [place] [facility] [address] [id number] [place] [address]- 0386 Sep, [facility] [place] [facility] [address] [id number] [place] [address] 2543 Sep, [facility] [place] [facility] [address] [id number] [place] [address]- 4106 Sep, [facility] [place] [facility] [address] [id number] [place] [address]- 4746 Sep, [facility] [place] [facility] [address] [id number] [place] [address]- 6338 30 Aug, 2011 [facility] [place] [facility] [address] [id number] [place] [address]156 26 Aug, 2011 [facility] [place] [facility] [address] [id number] [place] [address]- 5627 17 Aug, 2011 [facility] [place] [facility] [address] [id number] [place] [address]- 6896 16 Aug, 2011 [facility] [place] [facility] [address] [id number] [place] [address]- 3539 13 Aug, 2011 [facility] [place] [facility] [address] [id number] [place] [address]- 8990 Aug, [facility] [place] [facility] [address] [id number] [place] [address]- 7942 Aug, [facility] [place] [facility] [address] [id number] [place] [address]- 7102 28 Jul, 2011 [facility] [place] [facility] [address] [id number] [place] [address]- 5293 Jul, [facility] [place] [facility] [address] [id number] [place] [address]- 3541 Jul, [facility] [place] [facility] [address] [id number] [place] [address]- 8145 Jul, [facility] [place] [facility] [address] [id number] [place] [address]- 7033 Jul, [facility] [place] [facility] [address] [id number] [place] [address]- 6527 Jul, [facility] [place] [facility] [address] [id number] [place] [address]- 1123 07 Jul, 2011 [facility] [place] [facility] [address] [id number] [place] [address]- 8989 06 Jul, 2011 [facility] [place] [facility] [address] [id number] [place] [address]- 9161 05 Jul, 2011 [facility] [place] [facility] [address] [id number] [place] [address]- 1409 June, [facility] [address] [id number] [place] [address]- 3759 June, [facility] [place] [facility] [address] [id number] [place] June, [facility] [place] [facility] [address] [id number] [place] [address]- 7221 June, [facility] [place] [facility] [address] [id number] [place] [address]- 7744 June, [facility] [address] [id number] [place] [address]- 1299 June, [facility] [address] [id number] [place] [address]- 5092 June, [facility] [address] [id number] [place] [address]- 6418 June, [facility] [place] [facility] [address] [id number] [place] [address]- 4616 May, [facility] [place] [facility] [address] [id number] [place] [address]- 6195 May, [facility] [place] [facility] [address] [id number] [place] [address]- 4930 May, [facility] [place] [facility] [address] [id number] [place] [address]- 6515 May, [facility] [place] [facility] [address] [id number] [place] [address]- 3743 16 May, 2011 [facility] [place] [facility] [address] [id number] [place] [address]- 0930 May, [facility] [place] [facility] [address] [id number] [place] [address]- 7195 May, [facility] [place] [facility] [address] [id number] [place] [address]- 3165 Apr, [facility] [place] [facility] [address] [id number] [place] [address]- 4332 Apr, [facility] [address] [id number] [place] [address]- 0276 Apr, [facility] [place] [facility] [address] [id number] [place] [address]- 4196 Apr, [facility] [address] [id number] [place] [address]- 4081 Apr, [facility] [place] [facility] [address] [id number] [place] [address]- 9181 Apr, [facility] [place] [facility] [address] [id number] [place] [address]- 9834 Apr, [facility] [place] [facility] [address] [id number] [place] [address]- 7307 Mar, [facility] [place] [facility] [address] [id number] [place] [address]- 6561 Mar, [facility] [address] [id number] [place] [address]- 4370 14 Mar, 2011 [facility] [place] [facility] [address] [id number] [place] [address]- 3226 13 Mar, 2011 [facility] [place] [facility] [address] [id number] [place] [address]- 6534 Mar, [facility] [place] [facility] [address] [facility] [id number] [place] [address]- 4396 Mar, [facility] [place] [facility] [address] [id number] [place] [address]- 7071 Mar, [facility] [place] [facility] [address] [facility] [id number] [place] [address]- 1692 Feb, [facility] [place] [facility] [address] [id number] [place] [address]- 0007 Feb, [facility] [place] [facility] [address] [facility] [id number] [place] [address]- 4125 Feb, [facility] [address] [id number] [place] [address]- 8033 Feb, [facility] [place] [facility] [address] [id number] [place] [address]- 6806 Feb, [facility] [address] [id number] [place] [address]- 2386 Feb, [facility] [place] [facility] [address] [id number] [place] [address]- 8672 Feb, [facility] [address] [id number] [place] [address]- 9592 Feb, [facility] [address] [id number] [place] [address]- 9637 Feb, [facility] [address] [id number] [place] [address]- 3776 Feb, [facility] [address] [id number] [place] [address]- 0814 Jan, [facility] [address] [id number] [place] [address]- 9444 Jan, [facility] [place] [facility] [address] [id number] [place] [address]- 1728 Jan, [facility] [place] [facility] [address] [id number] [place] [address]- 0035 Jan, [facility] [place] [facility] [address] [id number] [address]- 9295 Jan, [facility] [place] [facility] [address] [id number] [place] [address]- 7356 Jan, [facility] [place] [facility] [address] [id number] [place] [address]- 8187 15 Jan, 2011 [facility] [place] [facility] [address] [id number] [place] 0816 15 Jan, 2011 [facility] [place] [facility] [address] [id number] [place] [address]- 0373 08 Jan, 2011 [facility] [place] [facility] [address] [id number] [place] [address]- 8315 Jan, [facility] [place] [facility] [address] [id number] [place] [address]- 0055 Jan, [facility] [place] [facility] [address] [id number] [place] [address]- 0613 Dec, [facility] [place] [facility] [address] [id number] [place] [address]- 4561 17 Dec, 2010 [facility] [place] [facility] [address] [id number] [place] [address]- 3556 17 Dec, 2010 [facility] [place] [facility] [address] [id number] [place] [address]- 6482 16 Dec, 2010 [facility] [place] [facility] [address] [id number] [place] [address]- 9847 14 Dec, 2010 [facility] [place] [facility] [address] [id number] [place] [address]- 1313 Dec, [facility] [place] [facility] [address] [id number] [place] [address]- 0077 Dec, [facility] [place] [facility] [address] [facility] [id number] [place] [address]- 8991 Dec, [facility] [place] [facility] [address] [id number] [place] [address]- 0839 Dec, [facility] [place] [facility] [address] [id number] [place] [address]- 9352 Nov, [facility] [place] [facility] [address] [id number] [place] [address]- 1424 Nov, [facility] [place] [facility] [address] [id number] [place] [address]- 4147 Nov, [facility] [place] [facility] [address] [id number] [place] [address]- 3532 24 Nov, 2010 [facility] [place] [facility] [address] [id number] [place] [address]- 0149 24 Nov, 2010 [facility] [place] [facility] [address] [id number] [place] [address]- 4817 13 Nov, 2010 [facility] [place] [facility] [address] [id number] [place] [address]454 Aug, [facility] [place] [facility] [address] [id number] [place] [address]- 0144 14 Feb, 2010 [facility] [place] [facility] [address] [id number] [place] 7412 14 Jan, 2010 [facility] [place] [facility] [address] [id number] [place] [address]- 0532 Jan, [facility] [place] [facility] [address] [id number] [place] [address]- 1082 Jan, [facility] [place] [facility] [address] [id number] [place] [address]- 0378 Jan, [facility] [place] [facility] [address] [id number] [place] [address]- 2436 Jan, [facility] [place] [facility] [address] [id number] [place] [address]- 7236 Dec, [facility] [place] [facility] [address] [id number] [place] [address]- 6579 Dec, [facility] [place] [facility] [address] [id number] [address]- 9623 Dec, [facility] [place] [facility] [address] [id number] [place] [address]- 5524 Dec, [facility] [place] [facility] [address] [id number] [place] [id number] Nov, [facility] [place] [facility] [address] [id number] [place] [id number] Nov, [facility] [place] [facility] [address] [id number] [address] Nov, IMMUNIZATIONS No Known Immunizations SOCIAL HISTORY Never Assessed REASON FOR VISIT Hip concerns PLAN OF CARE VITAL SIGNS MEDICATIONS Unknown [...]
--- OUTSIDE RECORDS SUMMARY | 2018-01-13 20:47 | XMS REPORT ---
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 Active 799626643 Problem Hypertension I10 Active 54261828 Problem Arthritis M19.90 Active 7021679 Problem 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 Active 38788588 Problem Anxiety F41.9 Active 94439958 Problem Unspecified episodic mood disorder F39 Active 85546594 Problem Left hip pain M25.552 Active 09939338 ALLERGIES No Information ENCOUNTERS Encounter Location Date Diagnosis [facility] [address] [facility] [id number] [address] Sep, Chronic hepatitis C without hepatic coma B18.2 [facility] [address] [facility] [id number] [address] Sep, 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 [facility] [address] [address] Sep, Arthritis M19.90 [facility] [id number] [place] [address] 55790- 1614 Sep, [facility] [address] [place] [address] 88902- 2787 Sep, Unspecified episodic mood disorder F39 [facility] [id number] [place] [address] 21454- 3421 Aug, [facility] [id number] [place] [address] [id number] Aug, [facility] [id number] [place] [address] 75983- 3457 Aug, Arthritis M19.90 [facility] [id number] [place] [address] 06263- 3686 Aug, [facility] [address] [place] [address] 20150- 7766 Aug, Obesity (BMI 30.0-34.9) E66.9 ; Unspecified episodic mood disorder F39 and Hypertension I10 [facility] [address] [place] [address] 63189- 6987 Aug, Unspecified episodic mood disorder F39 [facility] [address] [address] 1127 Aug, [facility] [address] [place] [address] 74290- 8967 Jul, Unspecified episodic mood disorder F39 [facility] [address] [address] 06[address] Jul, [facility] [address] [address] 88[address] Jul, Arthritis M19.90 [facility] [address] [address] 4565 Jul, Left hip pain M25.552 ; Hypertension I10 ; Other obesity due to excess calories E66.09 and Body mass index (BMI) of 34.0-34.9 in adult Z68.34 [facility] [id number] [place] [address] 21628- 2336 Jul, Unspecified episodic mood disorder F39 [facility] [id number] [place] [address] 55450- 5728 June, Gastroesophageal reflux disease, esophagitis presence not specified K21.9 [facility] [id number] [place] [address] 73593- 0487 June, [facility] [id number] [place] [address] 54157- 9892 June, [facility] [id number] [place] [address] 71588- 1096 June, Arthritis M19.90 [facility] [id number] [place] [address] 74041- 2220 June, [facility] [id number] [place] [address] 44794- 0462 June, [facility] [id number] [place] [address] 45153- 1443 June, Unspecified episodic mood disorder F39 [facility] [id number] [place] [address] 67102- 6500 May, Unspecified episodic mood disorder F39 [facility] [address] [place] [address] 13103- 7600 May, [facility] [id number] [place] [address] 32473- 7491 May, Arthritis M19.90 [facility] [address] [address] May, Dysuria R30.0 ; Abscess L02.91 and Acute cystitis without hematuria N30.00 [facility] [address] [place] [address] 58011- 7540 May, 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 ; Unspecified episodic mood disorder F39 ; Combined drug dependence excluding opioids, 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 ; Anxiety F41.9 and Other psychoactive substance dependence, 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 [facility] [id number] [place] [address] 35690- 6483 May, [facility] [id number] [place] [address] 68444- 6008 May, 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 ; Unspecified episodic mood disorder F39 ; Combined drug dependence excluding opioids, 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 ; Other psychoactive substance dependence, 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 and Anxiety F41.9 [facility] [id number] [place] [address] 26321- 2415 May, Other chronic pain G89.29 ; Left hip pain M25.552 ; Hypertension I10 ; 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, 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 and Unspecified episodic mood disorder F39 [facility] [id number] [place] [address] 19442- 7066 Apr, [facility] [id number] [place] [address] 59425 -9095 Apr, Neck pain M54.2 ; Left hip pain M25.552 and Fall, initial encounter W19.XXXA [facility] [id number] [place] [address] 84664- 8856 Apr, Unspecified episodic mood disorder F39 ; Combined drug dependence excluding opioids, 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 ; Anxiety F41.9 ; Other psychoactive substance dependence, 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 and 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 [facility] [id number] [place] [address] 27444- 1951 Apr, [facility] [id number] [place] [address] 45119- 9010 Apr, Arthritis M19.90 and Unspecified episodic mood disorder F39 [facility] [address] [address] 8519 Apr, Unspecified episodic mood disorder F39 [facility] [id number] [place] [address] 54326- 4442 Apr, [facility] [id number] [place] [address] 94378- 4307 Apr, [facility] [id number] [place] [address] 56126- 3063 Apr, Unspecified episodic mood disorder F39 ; Combined drug dependence excluding opioids, 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 ; Anxiety F41.9 ; Other psychoactive substance dependence, 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 and 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 [facility] [id number] [place] [address] 37607- 8319 Mar, Unspecified episodic mood disorder F39 [facility] [id number] [place] [address] 27337- 3791 Mar, Gastroesophageal reflux disease, esophagitis presence not specified K21.9 [facility] [id number] [place] [address] 88461- 0269 Mar, Arthritis M19.90 and Unspecified episodic mood disorder F39 [facility] [address] [place] [address] 08360- 8018 Feb, [facility] [id number] [place] [address] 50302- 1290 Feb, [facility] [address] [place] [address] 66961- 2817 Feb, [facility] [id number] [place] [address] 02340- 7550 Feb, Arthritis M19.90 [facility] [address] [place] [address] 09340- 5576 Feb, Non-pressure chronic ulcer of right calf, 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 ; Unspecified episodic mood disorder F39 and Left hip pain M25.552 [facility] [id number] [place] [address] 01270- 4136 Feb, [facility] [id number] [place] [address] 92006- 1753 Feb, [facility] [address] 49785- 5740 Jan, Arthritis M19.90 [facility] [id number] [place] [address] 77415- 6059 Jan, Left hip pain M25.552 and Non-pressure chronic ulcer of right calf, 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 [facility] [id number] [place] [address] 53676- 5498 Jan, Chronic hepatitis C without hepatic coma B18.2 [facility] [id number] [place] [address] 48479- 8632 Jan, Encounter for immunization Z23 ; Venous insufficiency ( chronic) (peripheral) I87.2 ; Non-pressure chronic ulcer of unspecified calf limited to breakdown of skin L97.201 and Gastroesophageal reflux disease, esophagitis presence not specified K21.9 [facility] [id number] [place] [address] 94460- 7785 Jan, [facility] [id number] [place] [address] 87998- 7492 Jan, Chronic hepatitis C without hepatic coma B18.2 and Encounter for immunization Z23 [facility] [id number] [place] [address] 02592- 2584 Jan, Arthritis M19.90 [facility] [id number] [place] [address] 02742- 2198 Jan, [facility] [id number] [place] [address] 97840- 5497 Dec, [facility] [address] [address]- 9833 Dec, Unspecified episodic mood disorder F39 [facility] [id number] [place] [address] 57318- 5175 Dec, Arthritis M19.90 [facility] [address] [place] [address] 49549- 5385 Dec, Arthritis M19.90 [facility] [id number] [place] [address] 87307- 4001 Nov, [facility] [id number] [place] [address] 87529- 8992 Nov, [facility] [address] [place] [address] 11632- 4131 Nov, Other psychoactive substance dependence, 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 ; 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, 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 and Chronic hepatitis C without hepatic coma B18.2 [facility] [address] [place] [address] 46534- 6812 Nov, Arthritis M19.90 [facility] [address] [place] [address] 47011 -1978 Oct, Partial thickness burn of abdomen, initial encounter T21.22XA [facility] [address] [place] [address] 01306- 4401 Oct, [facility] [address] [place] [address] 11834- 1075 Sep, Arthritis M19.90 [facility] [address], [place] [address]- 7277 Sep, [facility] [id number] [place] [address] 15112- 5833 Sep, [facility] [address], [place] [address]- 3239 Sep, Unspecified episodic mood disorder F39 ; Chronic hepatitis C without hepatic coma B18.2 and Left hip pain M25.552 [facility] [address] [place] [address] 68198- 3103 Sep, Arthritis M19.90 and Left hip pain M25.552 [facility] [id number] [place] [address] 69883- 2022 Aug, [facility] [id number] [place] [address] 16904- 8175 Aug, [facility] [id number] [place] [address] 92223- 8151 Aug, Chronic hepatitis C without hepatic coma B18.2 [facility] [id number] [place] [address] 26511- 8633 Aug, [facility] [id number] [place] [address] 58046- 9024 Aug, Chronic hepatitis C without hepatic coma B18.2 [facility] [id number] [place] [address] 74147- 9719 Aug, 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, 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 [facility] [id number] [place] [address] 60356- 4571 Aug, [facility] [id number] [place] [address] 43901- 0370 Aug, Chronic hepatitis C without hepatic coma B18.2 and Hypertension I10 [facility] [address], [place] [address]- 8316 Jul, [facility] [id number] [place] [address] 89667- 6322 June, [facility] [id number] [address]- 6756 Apr, Fibromyalgia M79.7 ; Left hip pain M25.552 and Decubitus ulcer of sacral region, stage 1 L89.151 [facility] [address] [place] [address] 35921- 4911 Apr, [facility] [id number] [place] [address] 39661- 1010 Apr, [facility] [id number] [place] [address] 42959- 3141 16 Feb, 2016 [facility] [id number] [place] [address] 72345- 9993 Dec, Anxiety F41.9 ; Combined drug dependence excluding opioids, 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 and Unspecified episodic mood disorder F39 [facility] [id number] [place] [address] 86694- 5532 Dec, [facility] [id number] [place] [address] 59746- 6464 Nov, [facility] [id number] [place] [address] 65823- 0411 Nov, [facility] [id number] [place] [address] 72394- 7918 Nov, 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 and Anxiety F41.9 [facility] [id number] [place] [address] 96080- 4220 Oct, [facility] [address] [place] [address] 90327 -1106 14 Oct, 2015 Open wound of left thigh, initial encounter S71.102A [facility] [address] [place] [address] 79982- 4341 Oct, [facility] [id number] [place] [address] 69865- 9137 Sep, Unspecified episodic mood disorder F39 ; Other disorder of impulse control 312.39 ; Combined drug dependence excluding opioids, 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 and Anxiety F41.9 [facility] [id number] [place] [address] 65418- 3546 Sep, Other disorder of impulse control 312.39 ; Combined drug dependence excluding opioids, 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 ; Anxiety F41.9 and Unspecified episodic mood disorder F39 [facility] [id number] [place] [address] 15873- 1121 Sep, Other chronic pain G89.29 [facility] [id number] [place] [address] 28737- 0040 Sep, [facility] [id number] [place] [address] 84804- 5599 Sep, [facility] [id number] [place] [address] 80967- 9106 Aug, [facility] [id number] [place] [address] 92028- 3783 Aug, [facility] [id number] [place] [address] 90726- 2620 Aug, [facility] [id number] [place] [address] 21023- 6593 Jul, [facility] [id number] [place] [address] 12710- 7901 Jul, [facility] [id number] [place] [address] 33344- 0586 Jul, [facility] [id number] [place] [address] 89052- 7117 Jul, Arthritis M19.90 ; Chronic hepatitis C without hepatic coma B18.2 and Left hip pain M25.552 [facility] [id number] [place] [address] 19516- 0579 Jul, Left knee pain M25.562 [facility] [id number] [place] [address] 55381- 0205 Jul, Combined drug dependence excluding opioids, 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 ; Anxiety F41.9 ; Other disorder of impulse control 312.39 and Unspecified episodic mood disorder F39 [facility] [address] [place] [address] 29025- 5167 13 Jul, 2015 Left knee pain M25.562 [facility] [id number] [place] [address] 22643- 2104 Jul, Left knee pain M25.562 and Left hip pain M25.552 [facility] [id number] [place] [address] 38863- 3440 Jul, [facility] [id number] [place] [address] 86779- 1549 June, [facility] [id number] [place] [address] 56511- 2300 June, Combinations of drug dependence excluding opioid type drug, unspecified abuse 304.80 ; Other disorder of impulse control 312.39 ; Unspecified episodic mood disorder F39 and Anxiety F41.9 [facility] [id number] [place] [address] 40811- 0791 June, Other fatigue R53.83 ; Headache R51 and Left knee pain M25.562 [facility] [id number] [place] [address] 70970- 9773 June, Unspecified episodic mood disorder F39 ; Combinations of drug dependence excluding opioid type drug, unspecified abuse 304.80 ; Other disorder of impulse control 312.39 and Anxiety F41.9 [facility] [address] [place] [address] 49548- 3484 June, Anxiety F41.9 [facility] [id number] [place] [address] 92911- 8127 June, Pain in left knee M25.562 [facility] [id number] [place] [address] 72492- 1480 June, Anxiety F41.9 and Combinations of drug dependence excluding opioid type drug, unspecified abuse 304.80 [facility] [id number] [place] [address] 15895- 4280 June, Unspecified episodic mood disorder 296.90 ; Combinations of drug dependence excluding opioid type drug, unspecified abuse 304.80 and Other disorder of impulse control 312.39 [facility] [address] [place] [address] 57374- 3480 June, Anxiety F41.9 and Unspecified episodic mood disorder 296.90 [facility] [id number] [place] [address] 27434- 8177 May, Arthritis M19.90 [facility] [id number] [place] [address] 64504- 7063 May, Arthritis M19.90 [facility] [id number] [place] [address] 83895- 5570 May, Anxiety F41.9 ; Combinations of drug dependence excluding opioid type drug, unspecified abuse 304.80 and Other disorder of impulse control 312.39 [facility] [id number] [place] [address] 59184- 9025 May, Left knee pain M25.562 [facility] [id number] [place] [address] 47166- 6652 May, Arthritis M19.90 [facility] [id number] [place] [address] 40074- 8838 May, [facility] [address] [place] [address] 68388- 1402 May, Anxiety F41.9 ; Unspecified episodic mood disorder 296.90 ; Combinations of drug dependence excluding opioid type drug, unspecified abuse 304.80 and Other disorder of impulse control 312.39 [facility] [address] [place] [address] 86960- 0774 May, Left knee pain M25.562 [facility] [address] [place] [address] 01966- 7620 May, Left knee pain M25.562 ; Combinations of drug dependence excluding opioid type drug, unspecified abuse 304.80 ; Other disorder of impulse control 312.39 ; Fibromyalgia M79.7 ; Hypertension I10 ; Unspecified episodic mood disorder 296.90 and Left hip pain M25.552 [facility] [id number] [place] [address] 55718- 6174 May, Unspecified episodic mood disorder 296.90 ; Other disorder of impulse control 312.39 ; Combinations of drug dependence excluding opioid type drug, unspecified abuse 304.80 and Anxiety F41.9 [facility] [id number] [place] [address] 07848- 6326 May, Left knee pain M25.562 ; Combinations of drug dependence excluding opioid type drug, unspecified abuse 304.80 ; Other disorder of impulse control 312.39 ; Fibromyalgia M79.7 ; Hypertension I10 ; Unspecified episodic mood disorder 296.90 and Left hip pain M25.552 [facility] [place] [id number] [place] [address] 81292- 4187 May, Anxiety F41.9 ; Unspecified episodic mood disorder 296.90 ; Other disorder of impulse control 312.39 and Combinations of drug dependence excluding opioid type drug, unspecified abuse 304.80 [place] [place] [id number] [place] [address] 16102- 5863 Apr, 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 and 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, implants and grafts, initial encounter T84.82XA [place] [id number] [place] [address] 90618- 3966 Apr, Anxiety F41.9 ; Unspecified episodic mood disorder 296.90 ; Combinations of drug dependence excluding opioid type drug, unspecified abuse 304.80 and Other disorder of impulse control 312.39 [facility] [id number] [place] [address] 03953- 1900 Apr, Arthritis M19.90 [place] [id number] [place] [address] 20316- 7816 Apr, Anxiety F41.9 ; Unspecified episodic mood disorder 296.90 ; Combinations of drug dependence excluding opioid type drug, unspecified abuse 304.80 and Other disorder of impulse control 312.39 [facility] [address] [place] [address] 65759- 1169 17 Apr, 2015 Arthritis M19.90 [facility] [address] [place] [address] 00695- 8019 15 Apr, 2015 [facility] [id number] [place] [address] 48730- 4990 15 Apr, 2015 [facility] [id number] [place] [address] 00625- 4116 14 Apr, 2015 Unspecified episodic mood disorder 296.90 ; Combinations of drug dependence excluding opioid type drug, unspecified abuse 304.80 ; Other disorder of impulse control 312.39 and Anxiety F41.9 [facility] [id number] [place] [address] 48850 -2660 11 Apr, 2015 Left knee pain M25.562 [facility] [id number] [place] [address] 27165- 2718 Apr, [facility] [id number] [place] [address] 91492- 3088 29 Mar, 2015 Unspecified episodic mood disorder 296.90 ; Anxiety F41.9 ; Other disorder of impulse control 312.39 and Combinations of drug dependence excluding opioid type drug, unspecified abuse 304.80 [facility] [id number] [place] [address] 50356- 2845 Mar, Hyperpigmentation L81.9 [facility] [id number] [place] [address] 17126- 8113 Mar, Arthritis M19.90 and Anxiety F41.9 [facility] [id number] [place] [address] 65506- 8202 Mar, Unspecified episodic mood disorder F39 ; Combined drug dependence excluding opioids, 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 ; 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 and Anxiety F41.9 [facility] [id number] [place] [address] 24715- 0358 12 Mar, 2015 Well woman exam Z01.419 ; Other fatigue R53.83 ; Hot flashes N95.1 ; Depression, unspecified depression type F32.9 and Body mass index (BMI) of 23.0-23.9 in adult Z68.23 [facility] [id number] [place] [address] 90692- 9805 11 Mar, 2015 Unspecified episodic mood disorder 296.90 ; Other disorder of impulse control 312.39 and Anxiety F41.9 [place] [id number] [place] [address] 09456- 1981 11 Mar, 2015 Well woman exam Z01.419 [...] of breast Z12.39 and Limited mobility Z74.09 [place] [id number] [place] [address] 61988- 1203 10 Mar, 2015 [facility] [id number] [place] [address] 56581- 3954 Mar, [facility] [id number] [place] [address] 12308- 3973 Mar, [facility] [id number] [place] [address] 51725- 7269 03 Mar, 2015 Other specified complication of internal orthopedic prosthetic devices, implants and grafts, initial encounter T84.89XA ; Fibromyalgia M79.7 ; Hypertension I10 ; Anemia D64.9 ; Insomnia G47.00 ; Anxiety F41.9 ; Arthritis M19.90 and Migraine G43.909 [facility] [id number] [place] [address] 86469- 3798 Mar, [facility] [id number] [place] [address] 04063- 0166 Feb, [facility] [id number] [place] [address] 37802- 7182 Feb, Arthritis M19.90 and Anxiety F41.9 [facility] [id number] [place] [address] 49750- 0750 Feb, [facility] [id number] [place] [address] 81658- 8511 Feb, [facility] [id number] [place] [address] 18667- 8347 Feb, [facility] [id number] [place] [address] 82849- 9368 Feb, [facility] [id number] [place] [address] 38504- 7559 Feb, Anxiety F41.9 [facility] [id number] [place] [address] 82200- 1822 Feb, [facility] [id number] [place] [address] 29256- 4889 Feb, [facility] [id number] [place] [address] 55780- 4982 Feb, 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 and Fibromyalgia M79.7 [facility] [id number] [place] [address] 87249- 5961 Feb, [facility] [id number] [place] [address] 45047- 0576 Jan, [facility] [id number] [place] [address] 30849- 4220 Jan, [facility] [address] [address]- 4511 Jan, [facility] [id number] [place] [address], [place] [address]- 7364 Jan, [facility] [address] [id number] [address]- 9956 Jan, [facility] [id number] [place] [address] 38370- 1664 Jan, [facility] [id number] [place] [address], [place]- 0397 Jan, [facility] [id number] [place] [address], [place] [address]- 3849 Jan, [facility] [id number] [place] [address] 44069- 0067 Dec, [facility] [id number] [place] [address] 42299- 3933 Dec, Left knee pain M25.562 [facility] [id number] [place] [address] 05933- 8875 Dec, Left knee pain M25.562 [facility] [address] [address]- 4478 Dec, Fibromyalgia M79.7 ; Hypertension I10 and Arthritis M19.90 [facility] [address] [address]- 8693 Dec, [facility] [id number] [place] [address] 43965- 7854 Dec, [facility] [id number] [place] [address] 24728- 4299 Dec, [facility] [address] [address]- 1070 Dec, [facility] [id number] [place] [address] 58440- 5167 Nov, [facility] [address] [facility] [id number], [place] [address]- 1733 Nov, [facility] [address] [facility] [id number] 1879 Nov, [facility] [address] [facility] [id number], [place] [address]- 9528 Nov, Hypertension I10 [facility] [place] [facility] [address] [facility] [id number] [place] [address] 52009- 7798 23 Oct, 2014 [facility] [address] [facility] [id number] [place] [address] 73021- 4782 17 Oct, 2014 [facility] [place] [facility] [address] [facility] [id number], [place] [address]- 5025 Oct, 2014 [facility] [id number] [place] [address] 12855- 7137 Oct, [facility] [place] [facility] [id number] [address]- 6042 Oct, [facility] [id number] [place] [address] 52899- 3353 Sep, [facility] [place] [facility] [id number] [address]- 3035 Sep, [facility] [place] [facility] [id number] [address]- 4826 Sep, Hip pain associated with recalled total hip arthroplasty hardware 996.77 [facility] [place] [facility] [address] [facility] [id number], [place] [address]- 1163 Sep, [facility] [place] [facility] [address] [facility] [id number], [place] [address]- 2633 Sep, [facility] [place] [facility] [address] [facility] [id number], [place] [address]- 4389 Sep, [facility] [place] [facility] [address] [id number], [place] [address]- 1049 Aug, [facility] [place] [facility] [address] [id number] [place] [address]- 6556 Jul, [facility] [place] [facility] [address] [id number] [place] [address]- 2938 June, [facility] [place] [facility] [address] [id number] [place] [address]- 2572 June, [facility] [place] [facility] [address] [id number] [place] [address]- 8260 June, [facility] [place] [facility] [address] [id number] [place] [address]- 3474 June, [facility] [place] [facility] [address] [id number] [place] [address]- 4570 June, [facility] [place] [facility] [address] [id number] [place] [address]- 5336 June, [facility] [place] [facility] [address] [id number] [place] [address]- 6263 May, [facility] [place] [facility] [address] [id number] [place] [address]- 5813 May, [facility] [place] [facility] [address] [id number] [place] [address]- 5278 May, [facility] [place] [facility] [address] [id number] [place] [address]- 5083 Apr, [facility] [place] [facility] [address] [id number], [place] [address]- 3294 30 Apr, 2014 [facility] [place] [facility] [address] [id number] [place] [address]- 7635 Apr, [facility] [place] [facility] [address] [id number] [place] [address]- 2557 Apr, [facility] [place] [facility] [address] [id number] [place] [address]- 8182 Apr, [facility] [place] [facility] [address] [id number] [place] [address]- 8445 13 Apr, 2014 [facility] [place] [facility] [address] [id number] [place] [address]- 7331 Apr, [facility] [place] [facility] [address] [id number] [place] [address]- 4443 Apr, [facility] [place] [facility] [address] [id number] [place] [address]- 7114 Apr, [facility] [place] [facility] [address] [id number] [place] [address]- 5604 Apr, [facility] [place] [facility] [address] [id number] [place] [address]- 4349 Apr, [facility] [place] [facility] [address] [id number] [place] [address]- 2819 Mar, [facility] [place] [facility] [address] [id number] [place] [address]- 7762 Mar, [facility] [place] [facility] [address] [id number] [place] [address]- 4551 16 Mar, 2014 [facility] [place] [facility] [address] [id number] [place] [address]- 6480 Mar, [facility] [place] [facility] [address] [facility] [id number] [place] [address]- 4044 Mar, [facility] [place] [facility] [address] [id number] [place] [address]- 2839 Mar, [facility] [place] [facility] [address] [id number] [place] [address]- 7270 Feb, [facility] [place] [facility] [address] [id number] [place] [address]- 0184 Feb, [facility] [place] [facility] [address] [facility] [id number] [place] [address]- 2947 Feb, [facility] [place] [facility] [address] [id number] [place] [address]- 3842 Feb, [facility] [place] [facility] [address] [id number] [place] [address]- 6960 Jan, [facility] [place] [facility] [address] [id number] [place] [address]- 0027 Jan, [facility] [place] [facility] [address] [id number] [place] [address]- 4747 Jan, [facility] [place] [facility] [address] [id number] [place] [address]- 6317 Jan, [facility] [place] [facility] [address] [id number] [place] [address]- 6578 Dec, [facility] [place] [facility] [address] [id number] [place] [address]- 3351 Dec, [facility] [place] [facility] [address] [id number] [place] [address]- 3594 Dec, [facility] [place] [facility] [address] [id number] [place] [address]- 7097 Dec, [facility] [place] [facility] [address] [id number] [place] [address]- 0807 Dec, [facility] [place] [facility] [address] [id number] [place] [address]- 7819 Dec, [facility] [place] [facility] [address] [id number] [place] [address]- 1911 Dec, [facility] [place] [facility] [address] [id number], [place] [address]- 5111 Dec, [facility] [place] [facility] [address] [id number] [place] [address]- 4651 Dec, [facility] [place] [facility] [address] [id number] [place] [address]- 1730 Dec, [facility] [place] [facility] [address] [id number] [place] [address]- 1782 Dec, [facility] [place] [facility] [address] [id number] [place] [address]- 4688 31 Nov, 2013 [facility] [place] [facility] [address] [id number] [place] [address]- 5456 28 Nov, 2013 [facility] [place] [facility] [address] [id number] [place] [address]- 2249 28 Nov, 2013 [facility] [place] [facility] [address] [id number] [place] [address]- 1631 17 Nov, 2013 [facility] [place] [facility] [address] [id number] [place] [address]- 0160 17 Nov, 2013 [facility] [place] [facility] [address] [id number] [place] [address]- 4837 15 Nov, 2013 [facility] [place] [facility] [address] [id number] [place] [address]- 0106 15 Nov, 2013 [facility] [place] [facility] [address] [id number] [place] [address]- 5764 15 Nov, 2013 [facility] [place] [facility] [address] [id number] [place] [address]- 7282 15 Nov, 2013 [facility] [place] [facility] [address] [id number] [place] [address]- 1528 14 Nov, 2013 [facility] [place] [facility] [address] [id number] [place] [address]- 3182 14 Nov, 2013 [facility] [place] [facility] [address] [id number] [place] [address]- 1240 14 Nov, 2013 [facility] [place] [facility] [address] [id number] [place] [address]- 9374 14 Nov, 2013 [facility] [place] [facility] [address] [id number] [place] [address]- 5653 13 Nov, 2013 [facility] [place] [facility] [address] [id number] [place] [address]- 0194 13 Nov, 2013 [facility] [place] [facility] [address] [id number] [place] [address]- 0787 11 Nov, 2013 [facility] [place] [facility] [address] [id number] [place] [address]- 3207 11 Nov, 2013 [facility] [place] [facility] [address] [id number] [place] [address]- 6907 Nov, 2013 [facility] [place] [facility] [address] [id number] [place] [address]- 0452 Nov, 2013 [facility] [place] [facility] [address] [id number] [place] [address]- 8434 Nov, 2013 [facility] [place] [facility] [address] [id number] [place] [address]- 8784 07 Nov, 2013 [facility] [place] [facility] [address] [id number] [place] [address]- 8589 30 Oct, 2013 [facility] [place] [facility] [address] [id number] [place] [address]- 1505 30 Oct, 2013 [facility] [place] [facility] [address] [id number] [place] [address]- 4153 26 Oct, 2013 [facility] [place] [facility] [address] [id number] [place] [address]- 5923 26 Oct, 2013 [facility] [place] [facility] [address] [id number] [place] [address]- 2531 22 Oct, 2013 [facility] [place] [facility] [address] [id number] [place] [address]- 2725 22 Oct, 2013 [facility] [place] [facility] [address] [id number] [place] [address]- 7103 18 Sep, 2013 [facility] [place] [facility] [address] [id number] [place] [address]- 2544 18 Sep, 2013 [facility] [place] [facility] [address] [id number] [place] [address]- 2544 18 Oct, 2013 [facility] [place] [facility] [address] [id number] [place] [address]- 2548 18 Sep, 2013 [facility] [place] [facility] [address] [id number] [place] [address]- 1660 Oct, [facility] [place] [facility] [address] [id number] [place] [address]- 9360 Oct, [facility] [place] [facility] [address] [id number] [place] [address]- 3203 Oct, [facility] [place] [facility] [address] [id number] [place] [address]- 7967 Oct, [facility] [place] [facility] [address] [id number] [place] [address]- 4400 Sep, [facility] [place] [facility] [address] [id number] [place] [address]- 5537 Sep, [facility] [place] [facility] [address] [id number] [place] [address]- 7306 Sep, [facility] [place] [facility] [address] [id number] [place] [address]- 0153 Sep, [facility] [place] [facility] [address] [id number] [place] [address]- 0817 Sep, [facility] [place] [facility] [address] [id number] [place] [address]- 5324 Sep, [facility] [place] [facility] [address] [id number] [place] [address]- 1568 Sep, [facility] [place] [facility] [address] [id number] [place] [address]- 3227 Sep, [facility] [place] [facility] [address] [id number] [place] [address]- 9530 Sep, [facility] [place] [facility] [address] [id number] [place] [address]- 0269 Sep, [facility] [place] [facility] [address] [id number] [place] [address]- 3964 Sep, [facility] [place] [facility] [address] [id number] [place] [address]- 0560 Sep, [facility] [place] [facility] [address] [id number] [place] [address]- 7702 Sep, [facility] [place] [facility] [address] [id number] [place] [address]- 1540 Sep, [facility] [place] [facility] [address] [id number] [place] [address]- 1925 Sep, [facility] [place] [facility] [address] [id number] [place] [address]- 6144 Sep, [facility] [place] [facility] [address] [id number] [place] [address]- 4272 Sep, [facility] [place] [facility] [address] [id number] [place] [address]- 3175 Sep, [facility] [place] [facility] [address] [id number] [place] [address]- 4349 Aug, [facility] [place] [facility] [address] [id number] [place] [address]- 8354 Aug, [facility] [place] [facility] [address] [id number] [place] [address]- 7746 Aug, [facility] [place] [facility] [address] [id number] [place] [address]- 2356 Aug, [facility] [place] [facility] [address] [id number] [place] [address]- 2134 Aug, [facility] [place] [facility] [address] [id number] [place] [address]- 6103 Aug, [facility] [place] [facility] [address] [id number] [place] [address]- 1823 Jul, [facility] [place] [facility] [address] [id number] [place] [address]- 2622 Jul, [facility] [place] [facility] [address] [id number] [place] [address]- 4971 Jul, [facility] [place] [facility] [address] [id number] [place] [address]- 3272 Jul, [facility] [place] [facility] [address] [id number] [place] [address]- 3176 June, [facility] [place] [facility] [address] [id number] [place] [address]- 9058 June, [facility] [place] [facility] [address] [id number] [place] [address]- 0629 June, [facility] [place] [facility] [address] [id number] [place] [address]- 6487 June, [facility] [place] [facility] [address] [id number] [place] [address]- 5632 June, [facility] [place] [facility] [address] [id number] [place] [address]- 1419 June, [facility] [place] [facility] [address] [id number] [place] [address]- 6844 June, [facility] [place] [facility] [address] [id number] [place] [address]- 9161 May, [facility] [place] [facility] [address] [id number] [place] [address]- 0686 May, [facility] [place] [facility] [address] [id number] [place] [address]- 4558 May, [facility] [place] [facility] [address] [id number] [place] [address] May, [facility] [place] [facility] [address] [id number] [place] [address] May, [facility] [place] [facility] [address] [id number] [place] [address] May, [facility] [place] [facility] [address] [id number] [place] [address] Apr, [facility] [place] [facility] [address] [id number] [place] [address] Apr, [facility] [place] [facility] [address] [id number] [place] [address] Apr, [facility] [place] [facility] [address] [id number] [place] [address] Apr, [facility] [place] [facility] [address] [id number] [place] [address] Apr, [facility] [place] [facility] [address] [id number] [place] [address] Apr, [facility] [place] [facility] [address] [id number] [place] [address] Apr, [facility] [place] [facility] [address] [id number] [place] [address] Apr, [facility] [place] [facility] [address] [id number] [place] [address] Apr, [facility] [place] [facility] [address] [id number] [place] [address] Apr, [facility] [place] [facility] [address] [id number] [place] [address] 1892 Apr, [facility] [place] [facility] [address] [id number] [place] [address] Apr, [facility] [place] [facility] [address] [id number] [place] [address] 3[address] Apr, [facility] [place] [facility] [address] [id number] [place] [address] 270[address] Apr, [facility] [place] [facility] [address] [id number] [place] [address] Mar, [facility] [place] [facility] [address] [id number] [place] [address] Mar, [facility] [place] [facility] [address] [id number] [place] [address]- [address]30 05 Mar, 2013 [facility] [place] [facility] [address] [id number] [place] [address]861 Feb, [facility] [place] [facility] [address] [id number] [place] [address]- [address] Feb, [facility] [place] [facility] [address] [id number] [place] [address]- 9933 Feb, [facility] [place] [facility] [address] [id number] [place] [address]- 7323 Feb, [facility] [place] [facility] [address] [id number] [place] [address]- [address]85 Feb, [facility] [place] [facility] [address] [id number] [place] [address]167 Feb, [facility] [place] [facility] [address] [id number] [place] [address]- 8086 Feb, [facility] [place] [facility] [address] [id number] [place] [address] 7041 Feb, [facility] [place] [facility] [address] [id number] [place] [address] Feb, [facility] [place] [facility] [address] [id number] [place] [address] 8[address] Feb, [facility] [place] [facility] [address] [id number] [place] [address] 8[address] Jan, [facility] [place] [facility] [address] [id number] [place] [address] 9923 Jan, [facility] [place] [facility] [address] [id number] [place] [address] 6209 Jan, [facility] [place] [facility] [address] [id number] [place] [address] Jan, [facility] [place] [facility] [address] [id number] [place] [address]- 56[address] Jan, [facility] [place] [facility] [address] [id number] [place] [address]61 Jan, [facility] [place] [facility] [address] [id number] [place] [address]- 3385 Jan, [facility] [address] [id number] [place] [address]- 2990 Jan, [facility] [address] [id number] [place] [address]- 5166 Jan, [facility] [address] [facility] [id number] [place] [address]- [address]286 Jan, [facility] [place] [facility] [address] [id number] [place] [address]- 7840 Jan, [facility] [address] [id number] [place] [address]- [address] 17 Jan, 2013 [facility] [address] [id number] [place] [address]- [address] 16 Jan, 2013 [facility] [address] [id number] [place] [address]- [address]188 Jan, [facility] [place] [facility] [address] [id number], [place] [address] Jan, [facility] [address] [id number] [place] [address]- [address] Jan, [facility] [place] [facility] [address] [id number] [place] [address]- 8658 Jan, [facility] [place] [facility] [address] [id number], [place] [address] Jan, [facility] [place] [facility] [address] [id number], [place] [address]- [address] 05 Jan, 2013 [facility] [place] [facility] [address] [id number], [place] [address] Jan, [facility] [place] [facility] [address] [id number], [place] [address] 224[address] Jan, [facility] [place] [facility] [address] [facility] [id number], [place] [address]- [address] Dec, [facility] [place] [facility] [address] [id number] [place] [address]- [address]101 Dec, [facility] [place] [facility] [address] [id number] [place] [address]- 1139 Dec, [facility] [place] [facility] [address] [id number] [place] [address] 0018 Dec, [facility] [place] [facility] [address] [id number] [place] [address]- 9509 Dec, [facility] [place] [facility] [address] [id number] [place] [address] 6934 Dec, [facility] [place] [facility] [address] [id number] [place] [address] 1958 Dec, [facility] [place] [facility] [address] [id number] [place] [address]- 3817 Dec, [facility] [place] [facility] [address] [id number] [place] [address]- 3659 Dec, [facility] [place] [facility] [address] [id number] [place] [address]- 4715 Dec, [facility] [place] [facility] [address] [id number] [place] [address] Nov, [facility] [place] [facility] [address] [id number] [place] [address] Nov, [facility] [place] [facility] [address] [id number] [place] [address] 4[address] Nov, [facility] [place] [facility] [address] [id number][place] [address] Nov, [facility] [place] [facility] [address] [id number] [place] [address] 6509 Nov, [facility] [place] [facility] [address] [id number] [place] [address] 2067 Nov, [facility] [place] [facility] [address] [id number] [place] [address]- 7897 Nov, [facility] [place] [facility] [address] [id number] [place] [address] 5652 Nov, [facility] [place] [facility] [address] [id number] [place] [address] 2061 Nov, [facility] [place] [facility] [address] [id number] [place] [address]- 7235 Nov, [facility] [place] [facility] [address] [id number] [place] [address]- 0617 Oct, [facility] [address] [id number] [place] [address] 6829 Oct, [facility] [place] [facility] [address] [id number] [place] [address]- 1241 Oct, [facility] [address] [id number] [place] [address]- 5921 Oct, [facility] [address] [id number] [place] [address]- 7913 Oct, [facility] [place] [facility] [address] [id number] [place] [address]- 6637 Sep, [facility] [place] [facility] [address] [id number] [place] [address]- 8830 Sep, [facility] [place] [facility] [address] [id number] [place] [address]- 9760 Aug, [facility] [place] [facility] [address] [id number] [place] [address]- 8718 Aug, [facility] [place] [facility] [address] [id number] [place] [address]- 0540 Aug, [facility] [place] [facility] [address] [id number] [place] [address]- 7595 Aug, [facility] [place] [facility] [address] [id number] [place] [address]- 2763 Aug, [facility] [place] [facility] [address] [id number] [place] [address]- 8210 Aug, [facility] [address] [id number] [place] [address] Aug, [facility] [address] [id number] [place] [address]- 8942 Jul, [facility] [address] [id number] [place] [address]- 5212 Jul, [facility] [address] [id number] [place] [address]- 4786 June, [facility] [address] [id number] [place] [address]- 1776 June, [facility] [address] [id number] [place] [address]- 3410 June, [facility] [address] [id number] [place] [address]- 0649 June, [facility] [address] [id number] [place] [address]- 2527 June, [facility] [address] [id number] [place] [address] 7157 June, [facility] [address] [id number] [place] [address] 7998 June, [facility] [address] [id number] [place] [address]- 9298 June, [facility] [address] [id number] [place] [address]- 6167 June, [facility] [place] [facility] [address] [id number] [place] [address]- 8100 June, [facility] [place] [facility] [address] [id number] [place] [address]- 5054 June, [facility] [place] [facility] [address] [id number] [place] [address]- 3951 May, [facility] [place] [facility] [address] [id number] [place] [address]- 1205 May, [facility] [address] [id number] [place] [address]- 2649 May, [facility] [address] [id number] [place] [address]- 5216 May, [facility] [address] [id number] [place] [address]- 6326 Apr, [facility] [address] [id number] [place] [address]- 3369 Apr, [facility] [address] [id number] [place] [address]- 5801 Apr, [facility] [address] [id number] [place] [address]- 0437 Mar, [facility] [address] [id number] [place] [address]- 3199 Mar, [facility] [address] [id number] [place] [address]- 2343 Feb, [facility] [address] [id number] [place] [address]- 5168 Feb, [facility] [address] [id number] [place] [address]- 1336 Feb, [facility] [address] [id number] [place] [address]- 7098 Feb, [facility] [address] [id number] [place] [address]- 7919 16 Feb, 2012 [facility] [address] [id number] [place] [address] 1894 14 Feb, 2012 [facility] [address] [id number] [place] [address]- 1256 Feb, [facility] [address] [id number] [place] [address]- 2454 Jan, [facility] [place] [facility] [address] [id number] [place] [address]- 0611 31 Jan, 2012 [facility] [place] [facility] [address] [id number] [place] [address]- 4393 28 Jan, 2012 [facility] [place] [facility] [address] [id number] [place] [address] 17 Jan, 2012 [facility] [place] [facility] [address] [id number] [place] [address]- 0158 17 Jan, 2012 [facility] [place] [facility] [address] [id number] [place] [address]- 4028 Jan, [facility] [place] [facility] [address] [id number] [place] [address]- 6045 Jan, [facility] [place] [facility] [address] [id number] [place] [address]- 2054 Jan, [facility] [place] [facility] [address] [id number] [place] [address]- 5590 Jan, [facility] [place] [facility] [address] [id number] [place] [address]- 9811 Jan, [facility] [place] [facility] [address] [id number] [place] [address]- 4911 Jan, [facility] [place] [facility] [address] [id number] [place] [address]- 6437 Dec, [facility] [place] [facility] [address] [id number], [place] [address]- 0886 Dec, [facility] [place] [facility] [address] [id number] [place] [address]- 9739 Dec, [facility] [place] [facility] [address] [id number] [place] [address]- 2736 Dec, [facility] [place] [facility] [address] [id number] [place] [address]- 0292 Nov, [facility] [place] [facility] [address] [id number] [place] [address]- 7062 22 Nov, 2011 [facility] [place] [facility] [address] [id number] [place] [address]- 8436 08 Nov, 2011 [facility] [place] [facility] [address] [id number] [place] [address]- 4166 27 Oct, 2011 [facility] [place] [facility] [address] [id number] [place] [address] 2546 24 Oct, 2011 [facility] [place] [facility] [address] [id number] [place] [address] 2546 21 Oct, 2011 [facility] [place] [facility] [address] [id number] [place] [address]- 9796 10 Oct, 2011 [facility] [place] [facility] [address] [id number] [place] [address]- 7866 07 Oct, 2011 [facility] [place] [facility] [address] [id number] [place] [address]- 4443 04 Oct, 2011 [facility] [place] [facility] [address] [id number] [place] [address]- 4735 04 Oct, 2011 [facility] [place] [facility] [address] [id number] [place] [address]- 8850 29 Sep, 2011 [facility] [place] [facility] [address] [id number] [place] [address]- 8344 Sep, [facility] [place] [facility] [address] [id number] [place] [address]- 0626 Sep, [facility] [place] [facility] [address] [id number] [place] [address] 2547 Sep, [facility] [place] [facility] [address] [id number] [place] [address]- 6846 Sep, [facility] [place] [facility] [address] [id number] [place] [address]- 4156 Aug, [facility] [place] [facility] [address] [id number] [place] [address]- 7436 Aug, [facility] [place] [facility] [address] [id number] [place] [address]- 2506 17 Aug, 2011 [facility] [place] [facility] [address] [id number] [place] [address]- 4204 16 Aug, 2011 [facility] [place] [facility] [address] [id number] [place] [address]- 6555 13 Aug, 2011 [facility] [place] [facility] [address] [id number] [place] [address]- 8999 Aug, [facility] [place] [facility] [address] [id number] [place] [address]- 0185 Aug, [facility] [place] [facility] [address] [id number] [place] [address]- 6630 Jul, [facility] [place] [facility] [address] [id number] [place] [address]- 0742 Jul, [facility] [place] [facility] [address] [id number] [place] [address]- 6845 Jul, [facility] [place] [facility] [address] [id number] [place] [address]- 0827 Jul, [facility] [place] [facility] [address] [id number] [place] [address]- 2453 Jul, [facility] [place] [facility] [address] [id number] [place] [address]- 4090 Jul, [facility] [place] [facility] [address] [id number] [place] [address]- 1024 Jul, [facility] [place] [facility] [address] [id number] [place] [address]- 4221 Jul, [facility] [place] [facility] [address] [id number] [place] [address]- 1162 Jul, [facility] [place] [facility] [address] [id number] [place] [address]- 1220 June, [facility] [place] [facility] [address] [id number] [place] [address]- 0016 June, [facility] [address] [id number] [place] [address]- 4436 June, [facility] [place] [facility] [address] [id number] [place] [address]34 June, [facility] [place] [facility] [address] [id number] [place] [address]- 5396 June, [facility] [place] [facility] [address] [id number] [place] [address]- 6537 June, [facility] [address] [id number] [place] [address]- 4567 June, [facility] [address] [id number] [place] [address]- 5864 June, [facility] [address] [id number] [place] [address]- 0652 May, [facility] [place] [facility] [address] [id number] [place] [address]- 2762 May, [facility] [place] [facility] [address] [id number] [place] [address]- 1418 May, [facility] [place] [facility] [address] [id number] [place] [address]- 4264 May, [facility] [place] [facility] [address] [id number] [place] [address]- 2076 16 May, 2011 [facility] [place] [facility] [address] [id number] [place] [address]- 6510 16 May, 2011 [facility] [place] [facility] [address] [id number] [place] [address]- 4159 May, [facility] [place] [facility] [address] [id number] [place] [address]047 Apr, [facility] [place] [facility] [address] [id number] [place] [address]- 6257 Apr, [facility] [place] [facility] [address] [id number] [place] [address]- 1705 Apr, [facility] [place] [facility] [address] [id number] [place] [address]- 1196 Apr, [facility] [place] [facility] [address] [id number] [place] [address]- 5816 Apr, [facility] [place] [facility] [address] [id number] [place] [address]- 5696 Apr, [facility] [place] [facility] [address] [id number] [place] [address]- 1467 Apr, [facility] [place] [facility] [address] [id number] [place] [address]- 8618 Mar, [facility] [place] [facility] [address] [id number] [place] [address]- 7293 Mar, [facility] [place] [facility] [address] [id number] [place] [address]- 0083 14 Mar, 2011 [facility] [place] [facility] [address] [id number] [place] [address]- 3598 13 Mar, 2011 [facility] [place] [facility] [address] [facility] [id number] [place] [address]- 4146 09 Mar, 2011 [facility] [place] [facility] [address] [facility] [id number] [place] [address]- 7455 Mar, [facility] [place] [facility] [address] [facility] [id number] [place] [address]- 2561 Mar, [facility] [place] [facility] [address] [id number] [place] [address]- 2561 Feb, [facility] [place] [facility] [address] [id number] [place] [address]- 0826 Feb, [facility] [place] [facility] [address] [id number] [place] [address]- 0474 Feb, [facility] [place] [facility] [address] [id number] [place] [address]- 8436 Feb, [facility] [address] [id number] [place] [address]- 8946 Feb, [facility] [place] [facility] [address] [id number] [place] [address]- 5536 Feb, [facility] [place] [facility] [address] [id number] [place] [address]- 2607 Feb, [facility] [place] [facility] [address] [id number] [place] [address]- 5009 Feb, [facility] [address] [id number] [place] [address]- 5122 Feb, [facility] [address] [id number] [place] [address]- 3750 Feb, [facility] [address] [id number] [place] [address]- 2115 Jan, [facility] [place] [facility] [address] [id number] [place] [address]- 8745 Jan, [facility] [place] [facility] [address] [id number] [place] [address]- 4321 Jan, [facility] [place] [facility] [address] [id number] [place] [address]- 9951 Jan, [facility] [place] [facility] [address] [id number] [place] [address]- 7074 Jan, [facility] [place] [facility] [address] [id number], [place] [address]- 3967 Jan, [facility] [place] [facility] [address] [id number] [place] [address]- 5656 15 Jan, 2011 [facility] [place] [facility] [address] [id number] [place] [address]90 15 Jan, 2011 [facility] [place] [facility] [address] [id number] [place] [address]- 6631 08 Jan, 2011 [facility] [place] [facility] [address] [id number] [place] [address]- 7382 Jan, [facility] [place] [facility] [address] [id number] [place] [address]- 0904 Jan, [facility] [place] [facility] [address] [id number] [place] [address]- 6795 Dec, [facility] [place] [facility] [address] [id number] [place] [address]- 3922 Dec, [facility] [place] [facility] [address] [id number] [place] [address]- 6466 Dec, [facility] [place] [facility] [address] [id number] [place] [address]- 1028 16 Dec, 2010 [facility] [place] [facility] [address] [id number] [place] [address]- 4661 14 Dec, 2010 [facility] [place] [facility] [address] [id number] [place] [address]- 4439 Dec, [facility] [place] [facility] [address] [id number] [place] [address]- 2040 08 Dec, 2010 [facility] [place] [facility] [address] [id number] [place] [address]- 8371 Dec, [facility] [place] [facility] [address] [id number] [place] [address]- 8996 Dec, [facility] [place] [facility] [address] [id number] [place] [address]- 8926 Nov, [facility] [place] [facility] [address] [id number] [place] [address]- 3586 Nov, [facility] [place] [facility] [address] [id number] [place] [address]- 4436 Nov, [facility] [place] [facility] [address] [id number] [place] [address]- 8531 Nov, [facility] [place] [facility] [address] [id number] [place] [address]- 3396 Nov, [facility] [address] [id number], [place] [address]- 4778 Nov, [facility] [address] [facility] [id number], [place] [address]- 3692 Aug, [facility] [address] [facility] [id number][place] 4015 14 Feb, 2010 [facility] [address] [facility] [id number][place] 3667 Jan, [facility] [address] [facility] [id number] 3940 Jan, [facility] [address] [facility] [id number], [place] [address]- 4042 Jan, [facility] [address] [facility] [id number], [place] [address]- 0479 Jan, [facility] [address] [facility] [id number], [place] [address]- 3432 Jan, [facility] [address] [facility] [id number], [place] [address]- 2863 Dec, [facility] [address] [facility] [id number], [place] [address]- 3367 Dec, [facility] [address] [id number], [place] [address]- 0312 Dec, [facility] [address] [facility] [id number], [place] [address]- 3429 Dec, [facility] [address] [facility] [id number], [place] [address]- 8308 Nov, [facility] [address] [facility] [id number], [place] [address]- 2527 Nov, [facility] [address] [facility] [id number][place] 2145 Nov, IMMUNIZATIONS No Known Immunizations SOCIAL HISTORY Never Assessed REASON FOR VISIT Fentanyl 06/26 PLAN OF CARE VITAL SIGNS MEDICATIONS Medication Instructions Dosage Frequency Start Date End Date Duration Status Fentanyl 50 MCG/HR Transdermal 48 hrs 1 patch to skin June, 30 days Active RESULTS No Results PROCEDURES [...]
--- OUTSIDE RECORDS SUMMARY | 2018-01-13 20:48 | XMS REPORT ---
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 Active 765490935 Problem Hypertension I10 Active 69096446 Problem Arthritis M19.90 Active 2907569 Problem 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 Active 30625571 Problem Anxiety F41.9 Active 22269254 Problem Unspecified episodic mood disorder F39 Active 05067157 Problem Left hip pain M25.552 Active 76478884 ALLERGIES No Information ENCOUNTERS Encounter Location Date Diagnosis [facility] [address] [facility] [id number] [address] Sep, [facility] [id number] [address] Sep, [facility] [address] [facility] [id number], [place] [address] Sep, Unspecified episodic mood disorder F39 [facility] [address], [place] [address] Aug, [facility] [id number] [place] [address] [id number] Aug, [facility] [address], [place] [address] Aug, Arthritis M19.90 [facility] [address] [place] [address] 84482- 1684 Aug, [facility] [id number] [address] Aug, Obesity (BMI 30.0-34.9) E66.9 ; Unspecified episodic mood disorder F39 and Hypertension I10 [facility] [address], [place] [address] Aug, Unspecified episodic mood disorder F39 [facility] [address] [address] Aug, [facility] [id number] [place] [address] 24168- 0209 Jul, Unspecified episodic mood disorder F39 [facility] [id number] [address] 90[address] Jul, [facility] [id number] [address] 9894 Jul, Arthritis M19.90 [facility] [id number] [address] 4[address] Jul, Left hip pain M25.552 ; Hypertension I10 ; Other obesity due to excess calories E66.09 and Body mass index (BMI) of 34.0-34.9 in adult Z68.34 [facility] [address], [place] [address] 0[address] Jul, Unspecified episodic mood disorder F39 [facility] [id number] [place] [address] 78358- 4699 June, Gastroesophageal reflux disease, esophagitis presence not specified K21.9 [facility] [id number] [place] [address] 36251- 8792 June, [facility] [id number] [place] [address] 15176- 3883 June, [facility] [id number] [place] [address] 50150- 1453 June, Arthritis M19.90 [facility] [id number] [place] [address] 37076- 9450 June, [facility] [id number] [place] [address] 22308- 1807 June, [facility] [id number] [place] [address] 91956- 1094 June, Unspecified episodic mood disorder F39 [facility] [id number] [place] [address] 89164- 5952 May, Unspecified episodic mood disorder F39 [facility] [id number] [place] [address] 79551- 3387 May, [facility] [id number] [place] [address] 80435- 0250 May, Arthritis M19.90 [facility] [address] [place] [address] 04493 -5149 May, Dysuria R30.0 ; Abscess L02.91 and Acute cystitis without hematuria N30.00 [facility] [address] [place] [address] 93821- 4557 May, 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 ; Unspecified episodic mood disorder F39 ; Combined drug dependence excluding opioids, 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 ; Anxiety F41.9 and Other psychoactive substance dependence, 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 [facility] [id number] [place] [address] 97193- 3219 May, [facility] [id number] [place] [address] 69037- 5752 May, 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 ; Unspecified episodic mood disorder F39 ; Combined drug dependence excluding opioids, 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 ; Other psychoactive substance dependence, 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 and Anxiety F41.9 [facility] [id number] [place] [address] 24640- 9109 May, Other chronic pain G89.29 ; Left hip pain M25.552 ; Hypertension I10 ; 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, 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 and Unspecified episodic mood disorder F39 [facility] [id number] [place] [address] 40583- 0470 Apr, [facility] [id number] [place] [address] 99314 -5500 Apr, Neck pain M54.2 ; Left hip pain M25.552 and Fall, initial encounter W19.XXXA [facility] [id number] [place] [address] 43392- 8229 Apr, Unspecified episodic mood disorder F39 ; Combined drug dependence excluding opioids, 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 ; Anxiety F41.9 ; Other psychoactive substance dependence, 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 and 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 [facility] [address] [place] [address] 63402- 3980 Apr, [facility] [address] [place] [address] 27257- 1880 Apr, Arthritis M19.90 and Unspecified episodic mood disorder F39 [facility] [id number] [place] [address] 93381- 3014 Apr, Unspecified episodic mood disorder F39 [facility] [address] [place] [address] 99020- 0082 Apr, [facility] [id number] [place] [address] 67107- 1779 Apr, [facility] [address] [address]- 5775 Apr, Unspecified episodic mood disorder F39 ; Combined drug dependence excluding opioids, 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 ; Anxiety F41.9 ; Other psychoactive substance dependence, 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 and 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 [facility] [address] 71541- 0903 Mar, Unspecified episodic mood disorder F39 [facility] [id number] [place] [address] 08193- 6854 Mar, Gastroesophageal reflux disease, esophagitis presence not specified K21.9 [facility] [id number] [place] [address] 77617- 3999 Mar, Arthritis M19.90 and Unspecified episodic mood disorder F39 [facility] [id number] [place] [address] 11775- 4409 Feb, [facility] [id number] [place] [address] 59259- 2814 Feb, [facility] [id number] [place] [address] 29208- 1720 Feb, [facility] [id number] [place] [address] 07268- 1870 Feb, Arthritis M19.90 [facility] [id number] [place] [address] 12919- 1564 Feb, Non-pressure chronic ulcer of right calf, 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 ; Unspecified episodic mood disorder F39 and Left hip pain M25.552 [facility] [id number] [place] [address] 70448- 2926 Feb, [facility] [id number] [place] [address] 51457- 9272 Feb, [place] [address] [place] [address] 33940- 0145 Jan, Arthritis M19.90 [place] [id number] [place] [address] 27900- 7408 Jan, Left hip pain M25.552 and Non-pressure chronic ulcer of right calf, 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 [address] 86754- 5394 Jan, Chronic hepatitis C without hepatic coma B18.2 [place] [id number] [place] [address] 82059- 9821 Jan, Encounter for immunization Z23 ; Venous insufficiency ( chronic) (peripheral) I87.2 ; Non-pressure chronic ulcer of unspecified calf limited to breakdown of skin L97.201 and Gastroesophageal reflux disease, esophagitis presence not specified K21.9 [place] [id number] [place] [address] 83788- 5384 Jan, [place] [id number] [place] [address] 30921- 7674 Jan, Chronic hepatitis C without hepatic coma B18.2 and Encounter for immunization Z23 [place] [id number] [place] [address] 49759- 6857 Jan, Arthritis M19.90 [place] [id number] [place] [address] 45508- 1039 Jan, [place] [id number] [place] [address] 32595- 0053 Dec, [place] [id number] [place] [address] 70681- 7074 Dec, Unspecified episodic mood disorder F39 [place] [id number] [place] [address] 15756- 6349 Dec, Arthritis M19.90 [place] [id number] [place] [address] 09804- 7470 Dec, Arthritis M19.90 [facility] [id number] [place] [address] 49275- 9888 Nov, [facility] [id number] [place] [address] 54262- 7728 Nov, [facility] [id number] [place] [address] 43852- 9379 Nov, Other psychoactive substance dependence, 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 ; 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, 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 and Chronic hepatitis C without hepatic coma B18.2 [facility] [id number] [place] [address] 33908- 7652 Nov, Arthritis M19.90 [facility] [id number] [place] [address] 20705 -0566 Oct, Partial thickness burn of abdomen, initial encounter T21.22XA [facility] [id number] [place] [address] 07535- 6838 Oct, [facility] [id number] [place] [address] 02563- 7861 Sep, Arthritis M19.90 [facility] [id number] [place] [address] 79283- 7904 Sep, [facility] [id number] [place] [address] 01281- 5001 Sep, [facility] [id number] [place] [address] 96094- 5310 Sep, Unspecified episodic mood disorder F39 ; Chronic hepatitis C without hepatic coma B18.2 and Left hip pain M25.552 [facility] [id number] [place] [address] 61561- 3697 Sep, Arthritis M19.90 and Left hip pain M25.552 [facility] [id number] [place] [address] 85874- 8164 Aug, [facility] [id number] [place] [address] 18667- 1367 Aug, [facility] [id number] [place] [address] 87308- 2849 Aug, Chronic hepatitis C without hepatic coma B18.2 [facility] [id number] [place] [address] 60942- 1727 Aug, [facility] [id number] [place] [address] 72072- 0324 Aug, Chronic hepatitis C without hepatic coma B18.2 [facility] [id number] [place] [address] 34545- 4459 Aug, 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, 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 [facility] [id number] [place] [address] 30388- 6256 Aug, [facility] [id number] [place] [address] 18376- 1745 Aug, Chronic hepatitis C without hepatic coma B18.2 and Hypertension I10 [facility] [id number] [place] [address] 50836- 2991 Jul, [facility] [id number] [place] [address] 31896- 2669 June, [facility] [id number] [place] [address] 46534- 3134 Apr, Fibromyalgia M79.7 ; Left hip pain M25.552 and Decubitus ulcer of sacral region, stage 1 L89.151 [facility] [id number] [place] [address] 68062- 4608 Apr, [facility] [id number] [place] [address] 25855- 1806 Apr, [facility] [id number] [place] [address] 85197- 7232 Feb, [facility] [address] [place] [address] 80761- 6802 Dec, Anxiety F41.9 ; Combined drug dependence excluding opioids, 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 and Unspecified episodic mood disorder F39 [facility] [id number] [place] [address] 51773- 3647 Dec, [facility] [id number] [place] [address] 58714- 8450 Nov, [facility] [id number] [place] [address] 69452- 0526 Nov, [facility] [address] 18149- 3952 Nov, 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 and Anxiety F41.9 [facility] [id number] [place] [address] 49410- 3211 Oct, [facility] [id number] [place] [address] 86866 -6825 14 Oct, 2015 Open wound of left thigh, initial encounter S71.102A [facility] [id number] [place] [address] 95639- 8477 Oct, [facility] [id number] [place] [address] 39528- 6044 Sep, Unspecified episodic mood disorder F39 ; Other disorder of impulse control 312.39 ; Combined drug dependence excluding opioids, 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 and Anxiety F41.9 [facility] [address] [place] [address] 31510- 4539 Sep, Other disorder of impulse control 312.39 ; Combined drug dependence excluding opioids, 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 ; Anxiety F41.9 and Unspecified episodic mood disorder F39 [facility] [address] [place] [address] 40175- 4731 Sep, Other chronic pain G89.29 [facility] [address] 81544- 4884 Sep, [facility] [address], [place] [address]- 6987 Sep, [facility] [address] [place] [address] 27904- 0639 Aug, [facility] [id number] [place] [address] 20892- 3823 Aug, [facility] [id number] [place] [address] 47745- 3081 Aug, [facility] [id number] [place] [address] 45889- 0854 Jul, [facility] [id number] [place] [address] 25294- 3415 Jul, [facility] [id number] [place] [address] 42671- 9301 Jul, [facility] [id number] [place] [address] 87978- 7178 Jul, Arthritis M19.90 ; Chronic hepatitis C without hepatic coma B18.2 and Left hip pain M25.552 [facility] [id number] [place] [address] 86885- 3038 Jul, Left knee pain M25.562 [facility] [id number] [place] [address] 26415- 7290 Jul, Combined drug dependence excluding opioids, 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 ; Anxiety F41.9 ; Other disorder of impulse control 312.39 and Unspecified episodic mood disorder F39 [facility] [id number] [place] [address] 73749- 8813 Jul, Left knee pain M25.562 [facility] [address] [place] [address] 96029- 2213 08 Jul, 2015 Left knee pain M25.562 and Left hip pain M25.552 [facility] [address], [place] [address]- 4296 Jul, [facility] [id number] [place] [address] 09434- 0417 June, [facility] [id number] [place] [address] 79067- 5167 June, Combinations of drug dependence excluding opioid type drug, unspecified abuse 304.80 ; Other disorder of impulse control 312.39 ; Unspecified episodic mood disorder F39 and Anxiety F41.9 [facility] [id number] [place] [address] 46287- 5465 June, Other fatigue R53.83 ; Headache R51 and Left knee pain M25.562 [place] [address] [place] [address] 47376- 7913 June, Unspecified episodic mood disorder F39 ; Combinations of drug dependence excluding opioid type drug, unspecified abuse 304.80 ; Other disorder of impulse control 312.39 and Anxiety F41.9 [facility] [address] [place] [address] 05249- 0635 June, Anxiety F41.9 [place] [id number] [place] [address] 30091- 9525 June, Pain in left knee M25.562 [place] [address], [place] [address]- 2087 June, Anxiety F41.9 and Combinations of drug dependence excluding opioid type drug, unspecified abuse 304.80 [facility] [address], [place] [address]- 7133 June, Unspecified episodic mood disorder 296.90 ; Combinations of drug dependence excluding opioid type drug, unspecified abuse 304.80 and Other disorder of impulse control 312.39 [place] [address], [place] [address]- 5919 June, Anxiety F41.9 and Unspecified episodic mood disorder 296.90 [place] [address] [address]- 9720 May, Arthritis M19.90 [facility] [id number] [place] [address] 43465- 3976 May, Arthritis M19.90 [facility] [address] [place] [address] 71201- 2593 May, Anxiety F41.9 ; Combinations of drug dependence excluding opioid type drug, unspecified abuse 304.80 and Other disorder of impulse control 312.39 [facility] [id number] [place] [address] 21463- 5228 May, Left knee pain M25.562 [place] [id number] [place] [address] 10826- 1709 May, Arthritis M19.90 [facility] [id number] [place] [address] 29589- 2569 May, [facility] [id number] [place] [address] 38255- 4738 May, Anxiety F41.9 ; Unspecified episodic mood disorder 296.90 ; Combinations of drug dependence excluding opioid type drug, unspecified abuse 304.80 and Other disorder of impulse control 312.39 [facility] [address] [place] [address] 01623- 1026 May, Left knee pain M25.562 [place] [id number] [place] [address] 00962- 7243 11 May, 2015 Left knee pain M25.562 ; Combinations of drug dependence excluding opioid type drug, unspecified abuse 304.80 ; Other disorder of impulse control 312.39 ; Fibromyalgia M79.7 ; Hypertension I10 ; Unspecified episodic mood disorder 296.90 and Left hip pain M25.552 [facility] [address] [place] [address] 89414- 6037 May, Unspecified episodic mood disorder 296.90 ; Other disorder of impulse control 312.39 ; Combinations of drug dependence excluding opioid type drug, unspecified abuse 304.80 and Anxiety F41.9 [place] [id number] [place] [address] 65688- 8281 May, Left knee pain M25.562 ; Combinations of drug dependence excluding opioid type drug, unspecified abuse 304.80 ; Other disorder of impulse control 312.39 ; Fibromyalgia M79.7 ; Hypertension I10 ; Unspecified episodic mood disorder 296.90 and Left hip pain M25.552 [place] [address] 23554- 8029 May, Anxiety F41.9 ; Unspecified episodic mood disorder 296.90 ; Other disorder of impulse control 312.39 and Combinations of drug dependence excluding opioid type drug, unspecified abuse 304.80 [place] [id number] [place] [address] 98596- 7961 Apr, 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 and 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, implants and grafts, initial encounter T84.82XA [place] [address] 70532- 3725 Apr, Anxiety F41.9 ; Unspecified episodic mood disorder 296.90 ; Combinations of drug dependence excluding opioid type drug, unspecified abuse 304.80 and Other disorder of impulse control 312.39 [place] [id number] [place] [address] 34145- 5482 Apr, Arthritis M19.90 [place] [id number] [place] [address] 32183- 5203 Apr, Anxiety F41.9 ; Unspecified episodic mood disorder 296.90 ; Combinations of drug dependence excluding opioid type drug, unspecified abuse 304.80 and Other disorder of impulse control 312.39 [place] [place] [id number] [place] [address] 98422- 0442 Apr, Arthritis M19.90 [place] [place] [id number] [place] [address] [phone] Apr, [place] [address] [phone] 15 Apr, 2015 [facility] [id number] [place] [address] [phone] 14 Apr, 2015 Unspecified episodic mood disorder 296.90 ; Combinations of drug dependence excluding opioid type drug, unspecified abuse 304.80 ; Other disorder of impulse control 312.39 and Anxiety F41.9 [facility] [id number] [place] [phone] 11 Apr, 2015 Left knee pain M25.562 [facility] [id number] [place] [address] [phone] [phone] 11 Apr, 2015 [facility] [id number] [place] [address] 31825- [phone] 29 Mar, 2015 Unspecified episodic mood disorder 296.90 ; Anxiety F41.9 ; Other disorder of impulse control 312.39 and Combinations of drug dependence excluding opioid type drug, unspecified abuse 304.80 [facility] [id number] [place] [address] 47077- 5690 Mar, Hyperpigmentation L81.9 [facility] [id number] [place] [address] 79009- 1347 Mar, Arthritis M19.90 and Anxiety F41.9 [facility] [id number] [place] [address] 06205- 1685 Mar, Unspecified episodic mood disorder F39 ; Combined drug dependence excluding opioids, 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 ; 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 and Anxiety F41.9 [facility] [id number] [place] [address] 26665- 7758 12 Mar, 2015 Well woman exam Z01.419 ; Other fatigue R53.83 ; Hot flashes N95.1 ; Depression, unspecified depression type F32.9 and Body mass index (BMI) of 23.0-23.9 in adult Z68.23 [facility] [id number] [place] [address] 93801- 3578 Mar, Unspecified episodic mood disorder 296.90 ; Other disorder of impulse control 312.39 and Anxiety F41.9 [facility] [id number] [place] [address] 06775- 1673 11 Mar, 2015 Well woman exam Z01.419 [...] of breast Z12.39 and Limited mobility Z74.09 [place] [address] 08819- 9914 Mar, [place] [address] 32317- 7884 Mar, [facility] [id number] [place] [address] 95802- 6657 Mar, [facility] [id number] [place] [address] 34381- 1898 Mar, Other specified complication of internal orthopedic prosthetic devices, implants and grafts, initial encounter T84.89XA ; Fibromyalgia M79.7 ; Hypertension I10 ; Anemia D64.9 ; Insomnia G47.00 ; Anxiety F41.9 ; Arthritis M19.90 and Migraine G43.909 [address] [place] [address] 92556- 8474 Mar, [facility] [id number] [place] [address] 37642- 2178 Feb, [facility] [address] [id number] [address] 9840 Feb, Arthritis M19.90 and Anxiety F41.9 [facility] [id number] [place] [address] 58484- 6025 Feb, [facility] [id number] [place] [address] 26800- 9379 Feb, [facility] [id number] [place] [address] 19582- 0097 Feb, [facility] [id number] [place] [address] 48417- 3138 Feb, [facility] [id number] [place] [address] 25612- 2391 Feb, Anxiety F41.9 [facility] [id number] [place] [address] 11698- 9144 Feb, [facility] [id number] [place] [address] 69716- 3664 Feb, [facility] [id number] [place] [address] 37108- 2095 Feb, 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 and Fibromyalgia M79.7 [facility] [id number] [place] [address] 81743- 6908 Feb, [facility] [id number] [place] [address] 51466 2545 Jan, [facility] [id number] [place] [address] 43913- 5988 Jan, [facility] [id number] [place] [address] 37193- 9136 Jan, [facility] [address] [address]- 2548 24 Jan, 2015 [facility] [id number] [place] [address] 76631- 3085 Jan, [facility] [address] [address]- 3438 Jan, [facility] [id number] [place] [address] 66619- 0204 Jan, [facility] [id number] [place] [address] 139912- 5634 Jan, [facility] [id number] [place] [address] 01323- 0761 Dec, [facility] [id number] [place] [address] 90495- 1036 Dec, Left knee pain M25.562 [facility] [id number] [place] [address] 40945- 1609 Dec, Left knee pain M25.562 [facility] [id number] [place] [address] 43311- 6807 Dec, Fibromyalgia M79.7 ; Hypertension I10 and Arthritis M19.90 [facility] [id number] [place] [address] 87339- 7820 Dec, [facility] [id number] [place] [address] 92302- 8752 Dec, [facility] [id number] [place] [address] 91557- 8263 Dec, [facility] [id number] [place] [address] 32530- 0556 Dec, [facility] [id number] [place] [address] 22322- 0450 Nov, [facility] [id number] [place] [address] 95914- 2394 Nov, [facility] [id number] [place] [address] 45702- 0414 Nov, [facility] [id number] [place] [address] 29815- 1853 Nov, Hypertension I10 [facility] [address] [id number] [place] [address]- 7203 23 Oct, 2014 [facility] [address] [facility] [id number], [place] [address]- 3326 17 Oct, 2014 [facility] [address] [facility] [id number], [place] [address]- 4916 04 Oct, 2014 [facility] [address] [facility] [id number], [place] [address]- 7902 04 Oct, 2014 [facility] [id number] [place] [address] 80559- 9913 Oct, [facility] [address] [facility] [id number], [place] [address]- 8064 Sep, [facility] [id number] [address]- 5919 Sep, [facility] [address] [facility] [id number], [place] [address]- 6776 Sep, Hip pain associated with recalled total hip arthroplasty hardware 996.77 [facility] [address] [facility] [id number], [place] [address]- 6227 Sep, [facility] [id number] [address]- 1854 Sep, [facility] [address] [facility] [id number], [place] [address]- 5394 Sep, [facility] [place] [facility] [address] [facility] [id number], [place] [address]- 2309 Aug, [facility] [place] [facility] [address] [facility] [id number], [place] [address]- 5423 Jul, [facility] [place] [facility] [address] [facility] [id number], [place] [address]- 4048 June, [facility] [place] [facility] [address] [facility] [id number] [address]- 7674 June, [facility] [place] [facility] [address] [id number] [place] [address]- 5608 June, [facility] [place] [facility] [address] [id number] [place] [address]- 0246 June, [facility] [place] [facility] [address] [id number] [place] [address]- 5433 June, [facility] [place] [facility] [address] [id number] [place] [address]- 5574 June, [facility] [place] [facility] [address] [id number] [place] [address]- 5056 May, [facility] [place] [facility] [address] [id number] [place] [address]- 6151 May, [facility] [place] [facility] [address] [id number] [place] [address]- 8376 May, [facility] [place] [facility] [address] [id number] [place] [address]- 9005 Apr, [facility] [place] [facility] [address] [id number] [place] [address]- 9330 Apr, [facility] [place] [facility] [address] [id number] [place] [address]- 3608 Apr, [facility] [place] [facility] [address] [id number] [place] [address]- 6778 Apr, [facility] [place] [facility] [address] [id number], [place] [address]- 4293 Apr, [facility] [place] [facility] [address] [id number] [place] [address]- 6150 Apr, [facility] [place] [facility] [address] [id number] [place] [address]- 3011 Apr, [facility] [place] [facility] [address] [id number] [place] [address]- 2312 Apr, [facility] [place] [facility] [address] [id number] [place] [address]- 2321 Apr, [facility] [place] [facility] [address] [id number] [place] [address]- 2574 Apr, [facility] [place] [facility] [address] [id number] [place] [address]- 5651 Apr, [facility] [place] [facility] [address] [id number] [place] [address]- 9488 Mar, 2014 [facility] [place] [facility] [address] [id number] [place] [address]- 8454 Mar, 2014 [facility] [place] [facility] [address] [id number] [place] [address]- 3800 Mar, 2014 [facility] [place] [facility] [address] [facility] [id number] [place] [address]- 6151 Mar, 2014 [facility] [place] [facility] [address] [facility] [id number] [place] [address]- 0592 Mar, [facility] [place] [facility] [address] [id number] [place] [address]- 5566 Mar, [facility] [place] [facility] [address] [facility] [id number] [place] [address]- 9401 Feb, [facility] [place] [facility] [address] [facility] [id number] [place] [address]- 4896 Feb, [facility] [place] [facility] [address] [facility] [id number] [place] [address]- 0256 Feb, [facility] [place] [facility] [address] [id number] [place] [address]- 2385 Feb, [facility] [place] [facility] [address] [id number] [place] [address]- 3265 Jan, [facility] [place] [facility] [address] [facility] [id number] [place] [address]- 9266 Jan, [facility] [place] [facility] [address] [facility] [id number] [place] [address]- 4163 Jan, [facility] [place] [facility] [address] [id number] [place] [address]- 8716 Jan, [facility] [place] [facility] [address] [id number] [place] [address]- 3618 Dec, [facility] [place] [facility] [address] [id number] [place] [address]- 1170 Dec, [facility] [place] [facility] [address] [id number] [place] [address]- 8068 Dec, [facility] [place] [facility] [address] [id number] [place] [address]- 0244 Dec, [facility] [place] [facility] [address] [id number] [place] [address]- 9837 Dec, [facility] [place] [facility] [address] [id number] [place] [address]- 9012 Dec, [facility] [place] [facility] [address] [id number] [place] [address]- 1514 Dec, [facility] [place] [facility] [address] [id number] [place] [address]- 9646 Dec, [facility] [place] [facility] [address] [id number] [place] [address]- 7422 Dec, [facility] [place] [facility] [address] [id number], [place] [address]- 6461 Dec, [facility] [place] [facility] [address] [id number], [place] [address]- 3116 Dec, [facility] [place] [facility] [address] [id number] [place] [address]- 3831 Nov, [facility] [place] [facility] [address] [id number], [place] [address]- 8281 Nov, [facility] [place] [facility] [address] [id number], [place] [address]- 4199 Nov, [facility] [place] [facility] [address] [id number] [place] [address]- 7505 17 Nov, 2013 [facility] [place] [facility] [address] [id number] [place] [address]- 3388 17 Nov, 2013 [facility] [place] [facility] [address] [id number] [place] [address]- 2955 15 Nov, 2013 [facility] [place] [facility] [address] [id number] [place] [address]- 8626 15 Nov, 2013 [facility] [place] [facility] [address] [id number] [place] [address]- 1826 15 Nov, 2013 [facility] [place] [facility] [address] [id number] [place] [address]- 8641 15 Nov, 2013 [facility] [place] [facility] [address] [id number] [place] [address]- 0424 14 Nov, 2013 [facility] [place] [facility] [address] [id number] [place] [address]- 5409 14 Nov, 2013 [facility] [place] [facility] [address] [id number] [place] [address]- 0471 14 Nov, 2013 [facility] [place] [facility] [address] [id number] [place] [address]- 2839 14 Nov, 2013 [facility] [place] [facility] [address] [id number] [place] [address]- 7823 13 Nov, 2013 [facility] [place] [facility] [address] [id number] [place] [address]- 5898 13 Nov, 2013 [facility] [place] [facility] [address] [id number] [place] [address]- 1680 11 Nov, 2013 [facility] [place] [facility] [address] [id number] [place] [address]- 0331 11 Nov, 2013 [facility] [place] [facility] [address] [id number] [place] [address]- 4883 07 Nov, 2013 [facility] [place] [facility] [address] [id number] [place] [address]- 1662 07 Nov, 2013 [facility] [place] [facility] [address] [id number] [place] [address]- 4050 07 Nov, 2013 [facility] [place] [facility] [address] [id number] [place] [address]- 5627 07 Nov, 2013 [facility] [place] [facility] [address] [id number] [place] [address]- 9390 30 Oct, 2013 [facility] [place] [facility] [address] [id number] [place] [address]- 4214 30 Oct, 2013 [facility] [place] [facility] [address] [id number] [place] [address]- 1436 26 Oct, 2013 [facility] [place] [facility] [address] [id number] [place] [address]- 9894 26 Oct, 2013 [facility] [place] [facility] [address] [id number] [place] [address]- 9148 22 Oct, 2013 [facility] [place] [facility] [address] [id number] [place] [address]- 4682 22 Oct, 2013 [facility] [place] [facility] [address] [id number] [place] [address]- 1504 18 Oct, 2013 [facility] [place] [facility] [address] [id number] [place] [address]- 4477 18 Oct, 2013 [facility] [place] [facility] [address] [id number] [place] [address]- 4067 18 Oct, 2013 [facility] [place] [facility] [address] [id number] [place] [address]- 2544 18 Oct, 2013 [facility] [place] [facility] [address] [id number] [place] [address]- 2544 12 Oct, 2013 [facility] [place] [facility] [address] [id number] [place] [address]- 2547 12 Oct, 2013 [facility] [place] [facility] [address] [id number] [place] [address]- 1323 03 Oct, 2013 [facility] [place] [facility] [address] [id number] [place] [address]- 9090 Oct, [facility] [place] [facility] [address] [id number] [place] [address]- 9138 Sep, [facility] [place] [facility] [address] [id number] [place] [address]- 4334 Sep, [facility] [place] [facility] [address] [id number] [place] [address]- 0030 Sep, [facility] [place] [facility] [address] [id number] [place] [address]- 2545 Sep, [facility] [place] [facility] [address] [id number] [place] [address]- 8296 Sep, [facility] [place] [facility] [address] [id number] [place] [address]- 4519 Sep, [facility] [place] [facility] [address] [id number] [place] [address]- 5939 Sep, [facility] [place] [facility] [address] [id number] [place] [address]- 7920 Sep, [facility] [place] [facility] [address] [id number] [place] [address]- 6454 Sep, [facility] [place] [facility] [address] [id number] [place] [address]- 6038 Sep, [facility] [place] [facility] [address] [id number] [place] [address]- 7870 Sep, [facility] [place] [facility] [address] [id number] [place] [address]- 9593 Sep, [facility] [place] [facility] [address] [id number] [place] [address]- 2400 Sep, [facility] [place] [facility] [address] [id number] [place] [address]- 1764 Sep, [facility] [place] [facility] [address] [id number] [place] [address]- 6323 Sep, [facility] [place] [facility] [address] [id number] [place] [address]- 1678 Sep, [facility] [place] [facility] [address] [id number] [place] [address]- 5427 Sep, [facility] [place] [facility] [address] [id number] [place] [address]- 1917 Sep, [facility] [place] [facility] [address] [id number] [place] [address]- 7982 Aug, [facility] [place] [facility] [address] [id number] [place] [address]- 7443 Aug, [facility] [place] [facility] [address] [id number] [place] [address]- 1794 Aug, [facility] [place] [facility] [address] [id number] [place] [address]- 2183 Aug, [facility] [place] [facility] [address] [id number] [place] [address]- 7234 Aug, [facility] [place] [facility] [address] [id number] [place] [address]- 0154 Aug, [facility] [place] [facility] [address] [id number] [place] [address]- 8614 Jul, [facility] [place] [facility] [address] [id number] [place] [address]- 9432 Jul, [facility] [place] [facility] [address] [id number] [place] [address]- 4672 Jul, [facility] [place] [facility] [address] [id number] [place] [address]- 0798 Jul, [facility] [place] [facility] [address] [id number] [place] [address]- 2859 June, [facility] [place] [facility] [address] [id number] [place] [address]- 7016 June, [facility] [place] [facility] [address] [id number] [place] [address]- 2134 June, [facility] [place] [facility] [address] [id number] [place] [address]- 0182 June, [facility] [place] [facility] [address] [id number] [place] [address]- 4374 June, [facility] [place] [facility] [address] [id number] [place] [address]- 7990 June, [facility] [place] [facility] [address] [id number] [place] [address]- 1052 June, [facility] [place] [facility] [address] [id number] [place] [address]- 3435 May, [facility] [place] [facility] [address] [id number] [place] [address]- 2935 May, [facility] [place] [facility] [address] [id number] [place] [address]- 5651 May, [facility] [place] [facility] [address] [id number] [place] [address]- 4699 May, [facility] [place] [facility] [address] [id number] [place] [address]- 4787 May, [facility] [place] [facility] [address] [id number] [place] [address]- 4567 May, [facility] [place] [facility] [address] [id number] [place] [address]- 8718 Apr, [facility] [place] [facility] [address] [id number] [place] [address] 31 Apr, 2013 [facility] [place] [facility] [address] [id number] [place] [address] 28 Apr, 2013 [facility] [place] [facility] [address] [id number] [place] [address] 28 Apr, 2013 [facility] [place] [facility] [address] [id number] [place] [address] 14 Apr, 2013 [facility] [place] [facility] [address] [id number], [place] [address] 14 Apr, 2013 [facility] [place] [facility] [address] [id number] [place] [address] Apr, [facility] [place] [facility] [address] [id number] [place] [address]18 12 Apr, 2013 [facility] [place] [facility] [address] [id number] [place] [address] 18[address] 10 Apr, 2013 [facility] [place] [facility] [address] [id number] [place] [address] 10 Apr, 2013 [facility] [place] [facility] [address] [id number] [place] [address] 37[address] Apr, [facility] [place] [facility] [address] [id number] [place] [address] 1768 Apr, [facility] [place] [facility] [address] [id number] [place] [address] 48[address] Apr, [facility] [place] [facility] [address] [id number] [place] [address] Apr, [facility] [place] [facility] [address] [id number] [place] [address] Mar, [facility] [place] [facility] [address] [id number] [place] [address] Mar, [facility] [place] [facility] [address] [id number] [place] [address] 2969 Mar, [facility] [place] [facility] [address] [id number] [place] [address] Feb, [facility] [place] [facility] [address] [id number] [place] [address] 9297 Feb, [facility] [place] [facility] [address] [id number] [place] [address] 4[address] Feb, [facility] [place] [facility] [address] [id number] [place] [address] 99[address] Feb, [facility] [place] [facility] [address] [id number] [place] [address]- [address] Feb, [facility] [address] [id number] [place] [address]- 6[address] Feb, [facility] [place] [facility] [address] [id number] [place] [address] 8566 Feb, [facility] [address] [id number] [place] [address]- 4688 Feb, [facility] [address] [id number] [place] [address] 125[address] Feb, [facility] [place] [facility] [address] [id number] [place] [address] 18[address] Feb, [facility] [address] [id number] [place] [address] Jan, [facility] [address] [id number] [place] [address] Jan, [facility] [address] [id number] [place] [address] 4[address] Jan, [facility] [address] [id number] [place] [address] Jan, [facility] [place] [facility] [address] [id number] [place] [address] 8665 Jan, [facility] [place] [facility] [address] [id number] [place] [address] Jan, [facility] [place] [facility] [address] [id number] [place] [address] 7[address] Jan, [facility] [place] [facility] [address] [id number] [place] [address] 0614 Jan, [facility] [place] [facility] [address] [id number] [place] [address] Jan, [facility] [place] [facility] [address] [id number] [place] [address] 65[address] Jan, [facility] [place] [facility] [address] [id number] [place] [address]- [address] 17 Jan, 2013 [facility] [place] [facility] [address] [id number] [place] [address] 7666 Jan, [facility] [place] [facility] [address] [facility] [id number] [place] [address]- [address] 16 Jan, 2013 [facility] [place] [facility] [address] [id number] [place] [address] Jan, [facility] [place] [facility] [address] [id number] [place] [address]- 8[address] Jan, [facility] [place] [facility] [address] [facility] [id number] [place] [address]- 9567 Jan, [facility] [place] [facility] [address] [facility] [id number] [place] [address]- 7568 Jan, [facility] [place] [facility] [address] [id number] [place] [address]- [address] Jan, [facility] [place] [facility] [address] [id number] [place] [address]- 8107 Jan, [facility] [place] [facility] [address] [facility] [id number] [place] [address]- 4641 Jan, [facility] [place] [facility] [address] [id number], [place] [address] 2148 Jan, [facility] [place] [facility] [address] [id number], [place] [address] Dec, [facility] [place] [facility] [address] [id number] [place] [address]- 3[address] Dec, [facility] [place] [facility] [address] [facility] [id number], [place] [address] Dec, [facility] [place] [facility] [address] [facility] [id number], [place] [address]- [address] Dec, [facility] [place] [facility] [address] [id number] [place] [address]- 6[address] Dec, [facility] [place] [facility] [address] [id number] [place] [address]- 4[address] Dec, [facility] [place] [facility] [address] [id number] [place] [address]- 2448 Dec, [facility] [place] [facility] [address] [id number] [place] [address]- 7656 Dec, [facility] [place] [facility] [address] [id number] [place] [address] Dec, [facility] [place] [facility] [address] [id number] [place] [address] 8415 Dec, [facility] [place] [facility] [address] [id number] [place] [address]- 1048 Nov, [facility] [place] [facility] [address] [id number] [place] [address]- 6080 Nov, [facility] [place] [facility] [address] [id number] [place] [address]- 6887 Nov, [facility] [place] [facility] [address] [id number] [place] [address] 4332 Nov, [facility] [place] [facility] [address] [id number] [place] [address]- 1347 Nov, [facility] [place] [facility] [address] [id number] [place] [address]- 8060 Nov, [facility] [place] [facility] [address] [id number] [place] [address]- 6208 Nov, [facility] [place] [facility] [address] [id number] [place] [address]- 1795 Nov, [facility] [place] [facility] [address] [id number] [place] [address] 3103 10 Nov, 2012 [facility] [place] [facility] [address] [id number] [place] [address] Nov, [facility] [place] [facility] [address] [id number] [place] [address]- 7288 Oct, [facility] [place] [facility] [address] [id number] [place] [address]- 1834 Oct, [facility] [place] [facility] [address] [id number] [place] [address]- 3762 Oct, [facility] [place] [facility] [address] [id number] [place] [address]- 1058 Oct, [facility] [address] [id number] [place] [address]- 1156 Oct, [facility] [place] [facility] [address] [id number] [place] [address]- 8439 Sep, [facility] [place] [facility] [address] [id number] [place] [address]- 8381 Sep, [facility] [place] [facility] [address] [id number] [place] [address]- 3379 Aug, [facility] [place] [facility] [address] [id number] [place] [address]- 0997 Aug, [facility] [place] [facility] [address] [id number] [place] [address]- 4117 Aug, [facility] [place] [facility] [address] [id number] [place] [address]- 0417 Aug, [facility] [place] [facility] [address] [id number], [place] [address]- 5816 Aug, [facility] [place] [facility] [address] [id number] [place] [address]- 3368 Aug, [facility] [place] [facility] [address] [id number] [place] [address]- 0681 Aug, [facility] [place] [facility] [address] [id number] [place] [address]- 9883 Jul, [facility] [place] [facility] [address] [id number], [place] [address] 4[address] Jul, [facility] [address] [id number] [place] [address] 3354 June, [facility] [address] [id number] [place] [address]- 8499 June, [facility] [address] [id number] [place] [address]- 5193 June, [facility] [address] [id number] [place] [address]- 4918 June, [facility] [address] [id number] [place] [address]- 0835 June, [facility] [address] [id number] [place] [address]- 2028 June, [facility] [address] [id number] [place] [address]- 6384 June, [facility] [address] [id number] [place] [address]- 6078 June, [facility] [address] [id number] [place] [address]- 7390 June, [facility] [address] [id number] [place] [address]- 0864 June, [facility] [address] [id number] [place] [address]- 1012 June, [facility] [address] [id number] [place] [address]- 3490 May, [facility] [place] [facility] [address] [id number] [place] [address]- 8693 May, [facility] [place] [facility] [address] [id number] [place] [address]- 5582 May, [facility] [address] [id number] [place] [address]- 3343 May, [facility] [place] [facility] [address] [id number] [place] [address]- 3246 Apr, [facility] [address] [id number] [place] [address]- 6579 Apr, [facility] [address] [id number] [place] [address]- 9586 Apr, [facility] [address] [id number] [place] [address]- 4076 Mar, [facility] [address] [id number] [place] [address]- 4005 Mar, [facility] [address] [id number] [place] [address]- 7573 Feb, [facility] [address] [id number] [place] [address]- 6172 Feb, [facility] [address] [id number] [place] [address]- 8817 Feb, [facility] [address] [id number] [place] [address]- 7364 Feb, [facility] [address] [id number] [place] [address]- 6167 Feb, [facility] [address] [id number] [place] [address]- 8073 Feb, [facility] [address] [id number] [place] [address]- 5673 Feb, [facility] [address] [id number] [place] [address]- 3560 Jan, [facility] [place] [facility] [address] [id number] [place] [address]- 4218 Jan, [facility] [place] [facility] [address] [id number] [place] [address]- 1176 Jan, [facility] [address] [id number] [place] [address] 6354 Jan, [facility] [place] [facility] [address] [id number] [place] [address]- 5974 17 Jan, 2012 [facility] [place] [facility] [address] [id number] [place] [address]- 0682 Jan, [facility] [place] [facility] [address] [facility] [id number] [place] [address]- 4636 Jan, [facility] [place] [facility] [address] [id number] [place] [address]- 5821 Jan, [facility] [place] [facility] [address] [id number] [place] [address]- 2345 Jan, [facility] [place] [facility] [address] [id number] [place] [address]- 4548 Jan, [facility] [place] [facility] [address] [id number] [place] [address]- 8595 Jan, [facility] [place] [facility] [address] [id number] [place] [address]- 9886 Dec, [facility] [place] [facility] [address] [id number] [place] [address]- 5273 Dec, [facility] [place] [facility] [address] [facility] [id number] [place] [address]- 9964 Dec, [facility] [place] [facility] [address] [id number], [place] [address]- 1112 Dec, [facility] [place] [facility] [address] [id number], [place] [address]- 2427 Nov, [facility] [place] [facility] [address] [id number] [place] [address]- 6334 Nov, [facility] [place] [facility] [address] [facility] [id number], [place] [address]- 7212 Nov, [facility] [place] [facility] [address] [facility] [id number], [place] [address]- 4387 Oct, [facility] [place] [facility] [address] [id number] [place] [address]- 3013 24 Oct, 2011 [facility] [place] [facility] [address] [id number] [place] [address] 2546 21 Oct, 2011 [facility] [place] [facility] [address] [id number] [place] [address] 2546 10 Oct, 2011 [facility] [place] [facility] [address] [id number] [place] [address] 2546 07 Oct, 2011 [facility] [place] [facility] [address] [id number] [place] [address] 2546 04 Oct, 2011 [facility] [place] [facility] [address] [id number] [place] [address]- 8546 04 Oct, 2011 [facility] [place] [facility] [address] [id number] [place] [address] 2546 29 Sep, 2011 [facility] [place] [facility] [address] [id number] [place] [address]- 7216 27 Sep, 2011 [facility] [place] [facility] [address] [id number] [place] [address] 2542 23 Sep, 2011 [facility] [place] [facility] [address] [id number] [place] [address]- 4382 Sep, [facility] [place] [facility] [address] [id number] [place] [address]- 2544 Sep, [facility] [place] [facility] [address] [id number] [place] [address] 2546 30 Aug, 2011 [facility] [place] [facility] [address] [id number] [place] [address] 2546 26 Aug, 2011 [facility] [place] [facility] [address] [id number] [place] [address] 2546 17 Aug, 2011 [facility] [place] [facility] [address] [id number] [place] [address] 2546 16 Aug, 2011 [facility] [place] [facility] [address] [id number] [place] [address] 2549 13 Aug, 2011 [facility] [place] [facility] [address] [id number] [place] [address]- 5272 Aug, [facility] [place] [facility] [address] [id number] [place] [address]- 3421 Aug, [facility] [place] [facility] [address] [id number] [place] [address]- 2820 Jul, [facility] [place] [facility] [address] [id number] [place] [address]- 1937 Jul, [facility] [place] [facility] [address] [id number] [place] [address]- 4896 Jul, [facility] [place] [facility] [address] [id number] [place] [address]- 3444 Jul, [facility] [place] [facility] [address] [id number] [place] [address]- 2576 Jul, [facility] [place] [facility] [address] [id number] [place] [address]- 3052 Jul, [facility] [place] [facility] [address] [id number] [place] [address]- 3391 Jul, [facility] [place] [facility] [address] [id number] [place] [address]- 2876 Jul, [facility] [place] [facility] [address] [id number] [place] [address]- 4186 Jul, [facility] [place] [facility] [address] [id number] [place] [address]- 9723 June, [facility] [place] [facility] [address] [id number] [place] [address]- 2938 June, [facility] [place] [facility] [address] [id number] [place] [address]- 4001 June, [facility] [place] [facility] [address] [id number] [place] [address]- 3955 June, [facility] [place] [facility] [address] [id number] [place] [address]- 8398 24 Jun, 2011 [facility] [place] [facility] [address] [id number] [place] [address]- 4493 June, [facility] [place] [facility] [address] [id number] [place] [address]- 7966 June, [facility] [place] [facility] [address] [id number] [place] [address]- 8426 June, [facility] [place] [facility] [address] [id number] [place] [address]- 3942 25 May, 2011 [facility] [place] [facility] [address] [id number] [place] [address]- 4024 23 May, 2011 [facility] [place] [facility] [address] [id number] [place] [address]- 8286 May, [facility] [place] [facility] [address] [id number] [place] [address]- 8286 May, [facility] [place] [facility] [address] [id number] [place] [address]- 2679 16 May, 2011 [facility] [place] [facility] [address] [id number] [place] [address]- 2404 16 May, 2011 [facility] [place] [facility] [address] [id number] [place] [address]- 9883 May, [facility] [place] [facility] [address] [id number] [place] [address]- 2968 27 Apr, 2011 [facility] [place] [facility] [address] [id number] [place] [address]- 9088 Apr, [facility] [place] [facility] [address] [id number] [place] [address]- 7862 Apr, [facility] [place] [facility] [address] [id number] [place] [address]- 9998 Apr, [facility] [place] [facility] [address] [id number] [place] [address]- 5104 Apr, [facility] [place] [facility] [address] [id number] [place] [address]- 0639 Apr, [facility] [place] [facility] [address] [id number] [place] [address]- 6036 Apr, [facility] [place] [facility] [address] [id number] [place] [address]- 2576 Mar, [facility] [place] [facility] [address] [id number] [place] [address]- 7306 Mar, [facility] [place] [facility] [address] [id number] [place] [address] 2546 14 Mar, 2011 [facility] [place] [facility] [address] [id number] [place] [address]- 5936 Mar, [facility] [place] [facility] [address] [id number] [place] [address]- 1436 Mar, [facility] [place] [facility] [address] [id number] [place] [address]- 8619 Mar, [facility] [place] [facility] [address] [id number] [place] [address]- 9339 Mar, [facility] [place] [facility] [address] [facility] [id number] [place] [address]- 8903 Feb, [facility] [place] [facility] [address] [id number] [place] [address]- 7712 Feb, [facility] [place] [facility] [address] [id number] [place] [address] 2546 Feb, [facility] [place] [facility] [address] [id number] [place] [address]- 4810 Feb, [facility] [place] [facility] [address] [id number] [place] [address] 2546 Feb, [facility] [place] [facility] [address] [id number] [place] [address]- 5346 Feb, [facility] [place] [facility] [address] [id number] [place] [address]- 4246 Feb, [facility] [address] [id number] [place] [address]- 6273 Feb, [facility] [place] [facility] [address] [id number] [place] [address]- 8276 Feb, [facility] [address] [id number] [place] [address]- 1457 Feb, [facility] [address] [id number] [place] [address]- 6511 Jan, [facility] [address] [id number] [place] [address]- 2405 Jan, [facility] [address] [id number] [place] [address]- 7209 Jan, [facility] [place] [facility] [address] [id number] [place] [address]- 8029 Jan, [facility] [place] [facility] [address] [id number] [place] [address]- 3703 Jan, [facility] [place] [facility] [address] [id number] [place] [address]- 7294 Jan, [facility] [place] [facility] [address] [id number] [place] [address]- 2757 Jan, [facility] [place] [facility] [address] [id number] [place] [address]- 6117 Jan, [facility] [place] [facility] [address] [id number] [place] [address]- 9020 Jan, [facility] [place] [facility] [address] [id number] [place] [address]- 9633 Jan, [facility] [place] [facility] [address] [id number] [place] [address]- 7902 Jan, [facility] [place] [facility] [address] [id number] [place] Dec, [facility] [place] [facility] [address] [id number] [place] [address]- 4396 17 Dec, 2010 [facility] [place] [facility] [address] [id number] [place] [address]- 1309 17 Dec, 2010 [facility] [place] [facility] [address] [id number] [place] [address]- 5216 16 Dec, 2010 [facility] [place] [facility] [address] [id number] [place] [address]- 9789 14 Dec, 2010 [facility] [place] [facility] [address] [id number] [place] [address]- 6411 09 Dec, 2010 [facility] [place] [facility] [id number] [place] [address], [place] [address]- 9634 08 Dec, 2010 [facility] [place] [facility] [address] [id number] [place] [address]- 1895 Dec, [facility] [place] [facility] [address] [id number] [place] [address]- 1753 Dec, [facility] [place] [facility] [address] [id number] [place] [address]- 0936 Nov, [facility] [place] [facility] [address] [id number] [place] [address]- 3305 Nov, [facility] [place] [facility] [address] [id number] [place] [address]- 7652 Nov, [facility] [place] [facility] [address] [id number] [place] [address]- 9558 24 Nov, 2010 [facility] [place] [facility] [address] [id number] [place] [address]- 2365 24 Nov, 2010 [facility] [place] [facility] [address] [id number] [place] [address]- 7616 13 Nov, 2010 [facility] [place] [facility] [address] [id number] [place] [address]- 6866 Aug, [facility] [place] [facility] [address] [id number] [place] [address]- 3951 Feb, [facility] [address] [id number], [place] [address]- 3238 Jan, [facility] [id number], [place] [address]- 8076 Jan, [facility] [address] [id number], [place] [address]- 6137 Jan, [facility] [address] [facility] [id number], [place] [address]- 8861 Jan, [facility] [id number] 1877 Jan, [facility] [id number] [address]278 Dec, [facility] [id number], [place] [address]- 1710 Dec, [facility] [id number], [place] [address]- 9540 Dec, [facility] [id number], [place] [address]- 5986 Dec, [facility] [id number] 8157 Nov, [facility] [address] [id number], [place] [address]- 6978 Nov, [facility] [address] [id number], [place] [address]- 6945 Nov, IMMUNIZATIONS No Known Immunizations SOCIAL HISTORY Never Assessed REASON FOR VISIT PLAN OF CARE VITAL SIGNS MEDICATIONS Medication Instructions Dosage Frequency Start Date End Date Duration Status Sumatriptan Succinate 100 mg Orally Once a day 1 tablet as needed one time 24h 30 Active RESULTS No Results PROCEDURES [...]
--- OUTSIDE RECORDS SUMMARY | 2018-01-13 20:50 | XMS REPORT ---
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 Active 774351824 Problem Hypertension I10 Active 48781597 Problem Arthritis M19.90 Active 5998214 Problem 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 Active 98787649 Problem Anxiety F41.9 Active 77343349 Problem Unspecified episodic mood disorder F39 Active 51689301 Problem Left hip pain M25.552 Active 65369445 ALLERGIES No Information ENCOUNTERS Encounter Location Date Diagnosis [facility] [address] [facility] [id number] [address] Sep, Unspecified episodic mood disorder F39 [facility] [address] [facility] [id number] [address] Aug, [facility] [address] [id number] [id number] Aug, [facility] [address], [place] [address] Aug, Arthritis M19.90 [facility] [address], [place] [address] Aug, [facility] [address], [place] [address] Aug, Obesity (BMI 30.0-34.9) E66.9 ; Unspecified episodic mood disorder F39 and Hypertension I10 [facility] [address], [place] [address] Aug, Unspecified episodic mood disorder F39 [facility] [id number] [place] [address] 71096- 0347 Aug, [facility] [id number] [place] [address] 59641- 5266 Jul, Unspecified episodic mood disorder F39 [facility] [address], [place] [address] Jul, [facility] [id number] [place] [address] 83904- 5494 Jul, Arthritis M19.90 [facility] [address], [place] [address] Jul, Left hip pain M25.552 ; Hypertension I10 ; Other obesity due to excess calories E66.09 and Body mass index (BMI) of 34.0-34.9 in adult Z68.34 [facility] [address], [place] [address] Jul, Unspecified episodic mood disorder F39 [facility] [address], [place] [address] June, Gastroesophageal reflux disease, esophagitis presence not specified K21.9 [facility] [id number] [place] [address] 95082- 3955 June, [facility] [address], [place] [address] June, [facility] [address], [place] [address] 2393 June, Arthritis M19.90 [facility] [address], [place] [address] 39[address] June, [facility] [id number] [place] [address] 98794- 4095 June, [facility] [address], [place] [address] 8629 June, Unspecified episodic mood disorder F39 [facility] [address], [place] [address] 64[address] May, Unspecified episodic mood disorder F39 [facility] [id number] [place] [address] 51602- 5723 May, [facility] [id number] [place] [address] 04842- 1609 May, Arthritis M19.90 [facility] [id number] [place] [address] 19914 -8480 May, Dysuria R30.0 ; Abscess L02.91 and Acute cystitis without hematuria N30.00 [facility] [address], [place] [address] 23[address] May, 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 ; Unspecified episodic mood disorder F39 ; Combined drug dependence excluding opioids, 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 ; Anxiety F41.9 and Other psychoactive substance dependence, 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 [facility] [address], [place] [address] May, [facility] [address], [place] [address] 4544 May, 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 ; Unspecified episodic mood disorder F39 ; Combined drug dependence excluding opioids, 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 ; Other psychoactive substance dependence, 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 and Anxiety F41.9 [facility] [address] 18549- 0176 May, Other chronic pain G89.29 ; Left hip pain M25.552 ; Hypertension I10 ; 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, 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 and Unspecified episodic mood disorder F39 [facility] [address] 6[address]71- 9114 Apr, [facility] [address] 8[address]88 -2885 Apr, Neck pain M54.2 ; Left hip pain M25.552 and Fall, initial encounter W19.XXXA [facility] [address] 95655- 4362 Apr, Unspecified episodic mood disorder F39 ; Combined drug dependence excluding opioids, 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 ; Anxiety F41.9 ; Other psychoactive substance dependence, 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 and 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 [facility] [address] 81277- 1507 Apr, [facility] [address] 10353- 4101 Apr, Arthritis M19.90 and Unspecified episodic mood disorder F39 [facility] [id number] [place] [address] 07281- 5926 Apr, Unspecified episodic mood disorder F39 [facility] [id number] [place] [address] 58259- 5746 Apr, [facility] [address] 59646- 6666 Apr, [facility] [id number] [place] [address] 01396- 6834 Apr, Unspecified episodic mood disorder F39 ; Combined drug dependence excluding opioids, 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 ; Anxiety F41.9 ; Other psychoactive substance dependence, 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 and 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 [facility] [id number] [place] [address] 11093- 9106 Mar, Unspecified episodic mood disorder F39 [facility] [id number] [place] [address] 55421- 1946 Mar, Gastroesophageal reflux disease, esophagitis presence not specified K21.9 [facility] [id number] [place] [address] 51456 2546 Mar, Arthritis M19.90 and Unspecified episodic mood disorder F39 [facility] [id number] [place] [address] 50327- 0806 Feb, [facility] [address] 8[address]60- 3796 Feb, [facility] [id number] [place] [address] 17010 2546 Feb, [facility] [id number] [place] [address] 33063 2546 Feb, Arthritis M19.90 [facility] [id number] [place] [address] 10946 2546 Feb, Non-pressure chronic ulcer of right calf, 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 ; Unspecified episodic mood disorder F39 and Left hip pain M25.552 [facility] [id number] [place] [address] 82214 2546 Feb, [facility] [id number] [place] [address] 09318 2546 Feb, [facility] [id number] [place] [address] 72378 2546 Jan, Arthritis M19.90 [facility] [id number] [place] [address] 99601370- 4391 Jan, Left hip pain M25.552 and Non-pressure chronic ulcer of right calf, 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 [facility] [address] 92453- 9189 Jan, Chronic hepatitis C without hepatic coma B18.2 [facility] [address] 85511- 3014 Jan, Encounter for immunization Z23 ; Venous insufficiency ( chronic) (peripheral) I87.2 ; Non-pressure chronic ulcer of unspecified calf limited to breakdown of skin L97.201 and Gastroesophageal reflux disease, esophagitis presence not specified K21.9 [facility] [address] 64322- 6827 Jan, [facility] [address] 17070- 7400 Jan, Chronic hepatitis C without hepatic coma B18.2 and Encounter for immunization Z23 [facility] [address] 05531- 3045 Jan, Arthritis M19.90 [facility] [address] 20711- 7833 Jan, [facility] [id number] [place] [address] 82203- 3824 Dec, [facility] [id number] [place] [address] 90736- 1690 Dec, Unspecified episodic mood disorder F39 [facility] [id number] [place] [address] 75483- 5449 Dec, Arthritis M19.90 [facility] [address] 10002- 4463 Dec, Arthritis M19.90 [facility] [id number] [place] [address] 78504- 6035 Nov, [facility] [address] 44272- 8242 Nov, [facility] [id number] [place] [address] 95007- 6294 Nov, Other psychoactive substance dependence, 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 ; 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, 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 and Chronic hepatitis C without hepatic coma B18.2 [facility] [id number] [place] [address] 04215- 0339 Nov, Arthritis M19.90 [facility] [id number] [place] [address] 17691 -6176 Oct, Partial thickness burn of abdomen, initial encounter T21.22XA [facility] [id number] [place] [address] 19331- 8732 Oct, [facility] [id number] [place] [address] 27721- 9632 Sep, Arthritis M19.90 [facility] [id number] [place] [address] 07950- 4679 Sep, [facility] [id number] [place] [address] 67897- 6261 Sep, [facility] [id number] [place] [address] 48786- 4234 Sep, Unspecified episodic mood disorder F39 ; Chronic hepatitis C without hepatic coma B18.2 and Left hip pain M25.552 [facility] [id number] [place] [address] 47532- 7344 Sep, Arthritis M19.90 and Left hip pain M25.552 [facility] [id number] [place] [address] 91763- 3189 Aug, [facility] [id number] [place] [address] 09758- 9578 Aug, [facility] [id number] [place] [address] 82592- 2683 Aug, Chronic hepatitis C without hepatic coma B18.2 [facility] [address], [place] [address]- 3364 Aug, [facility] [id number] [place] [address] 54689- 5229 Aug, Chronic hepatitis C without hepatic coma B18.2 [facility] [id number] [place] [address] 67398- 4615 Aug, 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, 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 [facility] [id number] [place] [address] 24789- 5082 Aug, [facility] [id number] [place] [address] 82622- 3063 Aug, Chronic hepatitis C without hepatic coma B18.2 and Hypertension I10 [facility] [id number] [place] [address] 65930- 7785 Jul, [facility] [id number] [place] [address] 39618- 2566 June, [facility] [id number] [place] [address] 86869- 6421 Apr, Fibromyalgia M79.7 ; Left hip pain M25.552 and Decubitus ulcer of sacral region, stage 1 L89.151 [facility] [id number] [place] [address] 74149- 2745 Apr, [facility] [id number] [place] [address] 68663- 0607 Apr, [facility] [id number] [place] [address] 55537- 3439 Feb, [facility] [id number] [place] [address] 29714- 0519 Dec, Anxiety F41.9 ; Combined drug dependence excluding opioids, 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 and Unspecified episodic mood disorder F39 [facility] [address], [place] [address]- 6728 Dec, [facility] [address] [place] [address] 73007- 0239 Nov, [facility] [id number] [place] [address] 58595- 2481 Nov, [facility] [id number] [place] [address] 32739- 6601 Nov, 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 and Anxiety F41.9 [facility] [id number] [place] [address] 28122- 2913 Oct, [facility] [id number] [place] [address] 27341 -1374 14 Oct, 2015 Open wound of left thigh, initial encounter S71.102A [facility] [id number] [place] [address] 02316- 4521 Oct, [facility] [id number] [place] [address] 98701- 4313 Sep, Unspecified episodic mood disorder F39 ; Other disorder of impulse control 312.39 ; Combined drug dependence excluding opioids, 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 and Anxiety F41.9 [facility] [address] [place] [address] 78757- 8634 Sep, Other disorder of impulse control 312.39 ; Combined drug dependence excluding opioids, 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 ; Anxiety F41.9 and Unspecified episodic mood disorder F39 [facility] [address] [place] [address] 95369- 9809 Sep, Other chronic pain G89.29 [facility] [id number] [place] [address] 03533- 2020 Sep, [facility] [address] [place] [address] 81651- 2357 Sep, [facility] [id number] [place] [address] 88491- 4861 Aug, [facility] [address], [place] [address]- 4060 Aug, [facility] [address] [place] [address] 72956- 8085 Aug, [facility] [id number] [place] [address] 61464- 3659 Jul, [facility] [id number] [place] [address] 75850- 0615 Jul, [facility] [id number] [place] [address] 19297- 1721 Jul, [facility] [id number] [place] [address] 39272- 0488 Jul, Arthritis M19.90 ; Chronic hepatitis C without hepatic coma B18.2 and Left hip pain M25.552 [facility] [id number] [place] [address] 52142- 4414 Jul, Left knee pain M25.562 [facility] [id number] [place] [address] 46133- 7269 Jul, Combined drug dependence excluding opioids, 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 ; Anxiety F41.9 ; Other disorder of impulse control 312.39 and Unspecified episodic mood disorder F39 [facility] [address] [place] [address] 42811- 5334 Jul, Left knee pain M25.562 [facility] [address] [place] [address] 35635- 1368 Jul, Left knee pain M25.562 and Left hip pain M25.552 [facility] [address] [place] [address] 23832- 7517 Jul, [facility] [address] [place] [address] 81072- 1676 June, [facility] [address] [place] [address] 19786- 5345 June, Combinations of drug dependence excluding opioid type drug, unspecified abuse 304.80 ; Other disorder of impulse control 312.39 ; Unspecified episodic mood disorder F39 and Anxiety F41.9 [facility] [id number] [place] [address] 29196- 1846 June, Other fatigue R53.83 ; Headache R51 and Left knee pain M25.562 [facility] [id number] [place] [address] 62609- 2417 June, Unspecified episodic mood disorder F39 ; Combinations of drug dependence excluding opioid type drug, unspecified abuse 304.80 ; Other disorder of impulse control 312.39 and Anxiety F41.9 [facility] [id number] [place] [address] 21562- 1047 June, Anxiety F41.9 [facility] [id number] [place] [address] 00303- 4939 June, Pain in left knee M25.562 [facility] [id number] [place] [address] 85160- 4590 June, Anxiety F41.9 and Combinations of drug dependence excluding opioid type drug, unspecified abuse 304.80 [facility] [address] [place] [address] 49226- 6321 June, Unspecified episodic mood disorder 296.90 ; Combinations of drug dependence excluding opioid type drug, unspecified abuse 304.80 and Other disorder of impulse control 312.39 [facility] [id number] [place] [address] 89101- 2632 June, Anxiety F41.9 and Unspecified episodic mood disorder 296.90 [facility] [id number] [place] [address] 06609- 1579 May, Arthritis M19.90 [facility] [id number] [place] [address] 95213- 0064 May, Arthritis M19.90 [facility] [address], [place] [address]- 7156 18 May, 2015 Anxiety F41.9 ; Combinations of drug dependence excluding opioid type drug, unspecified abuse 304.80 and Other disorder of impulse control 312.39 [facility] [address], [place] [address]- 5478 18 May, 2015 Left knee pain M25.562 [facility] [id number] [place] [address] 30711- 0465 14 May, 2015 Arthritis M19.90 [facility] [id number] [place] [address] 13301- 9955 13 May, 2015 [facility] [address] [place] [address] 37037- 8011 May, Anxiety F41.9 ; Unspecified episodic mood disorder 296.90 ; Combinations of drug dependence excluding opioid type drug, unspecified abuse 304.80 and Other disorder of impulse control 312.39 [facility] [address], [place] [address]- 4495 11 May, 2015 Left knee pain M25.562 [facility] [id number] [place] [address] 34633- 6457 11 May, 2015 Left knee pain M25.562 ; Combinations of drug dependence excluding opioid type drug, unspecified abuse 304.80 ; Other disorder of impulse control 312.39 ; Fibromyalgia M79.7 ; Hypertension I10 ; Unspecified episodic mood disorder 296.90 and Left hip pain M25.552 [facility] [address], [place] [address]- 0783 11 May, 2015 Unspecified episodic mood disorder 296.90 ; Other disorder of impulse control 312.39 ; Combinations of drug dependence excluding opioid type drug, unspecified abuse 304.80 and Anxiety F41.9 [facility] [address], [place] [address]- 5397 06 May, 2015 Left knee pain M25.562 ; Combinations of drug dependence excluding opioid type drug, unspecified abuse 304.80 ; Other disorder of impulse control 312.39 ; Fibromyalgia M79.7 ; Hypertension I10 ; Unspecified episodic mood disorder 296.90 and Left hip pain M25.552 [facility] [address] [place] [address] 62060- 6453 May, Anxiety F41.9 ; Unspecified episodic mood disorder 296.90 ; Other disorder of impulse control 312.39 and Combinations of drug dependence excluding opioid type drug, unspecified abuse 304.80 [facility] [id number] [place] [address] 88824- 0728 30 Apr, 2015 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 and 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, implants and grafts, initial encounter T84.82XA [facility] [id number] [place] [address] 85162- 7611 Apr, Anxiety F41.9 ; Unspecified episodic mood disorder 296.90 ; Combinations of drug dependence excluding opioid type drug, unspecified abuse 304.80 and Other disorder of impulse control 312.39 [facility] [address] [place] [address] 86859- 1764 Apr, Arthritis M19.90 [facility] [id number] [place] [address] 28607- 4076 Apr, Anxiety F41.9 ; Unspecified episodic mood disorder 296.90 ; Combinations of drug dependence excluding opioid type drug, unspecified abuse 304.80 and Other disorder of impulse control 312.39 [facility] [id number] [place] [address] 09939- 3189 Apr, Arthritis M19.90 [facility] [id number] [place] [address] 23338- 9138 Apr, [facility] [id number] [place] [address] 93881- 4414 Apr, [facility] [id number] [place] [address] 81410- 2492 14 Apr, 2015 Unspecified episodic mood disorder 296.90 ; Combinations of drug dependence excluding opioid type drug, unspecified abuse 304.80 ; Other disorder of impulse control 312.39 and Anxiety F41.9 [facility] [address] [place] [address] 44928 -5246 Apr, Left knee pain M25.562 [facility] [address] [place] [address] 53448- 4508 Apr, [facility] [id number] [place] [address] 05039- 7060 Mar, Unspecified episodic mood disorder 296.90 ; Anxiety F41.9 ; Other disorder of impulse control 312.39 and Combinations of drug dependence excluding opioid type drug, unspecified abuse 304.80 [facility] [id number] [place] [address] 66174- 2705 Mar, Hyperpigmentation L81.9 [facility] [id number] [place] [address] 55139- 8838 Mar, Arthritis M19.90 and Anxiety F41.9 [facility] [id number] [place] [address] 11020- 9450 Mar, Unspecified episodic mood disorder F39 ; Combined drug dependence excluding opioids, 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 ; 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 and Anxiety F41.9 [facility] [address] [place] [address] 66311- 0922 12 Mar, 2015 Well woman exam Z01.419 ; Other fatigue R53.83 ; Hot flashes N95.1 ; Depression, unspecified depression type F32.9 and Body mass index (BMI) of 23.0-23.9 in adult Z68.23 [facility] [id number] [place] [address] 37818- 2624 11 Mar, 2015 Unspecified episodic mood disorder 296.90 ; Other disorder of impulse control 312.39 and Anxiety F41.9 [facility] [id number] [place] [address] 99655- 8677 Mar, Well woman exam Z01.419 ; Encounter [...] of breast Z12.39 and Limited mobility Z74.[address] 65374- 4916 Mar, [address] 53549- 9788 Mar, [address] 22590- 2817 Mar, [address] 14370- 8596 Mar, Other specified complication of internal orthopedic prosthetic devices, implants and grafts, initial encounter T84.89XA ; Fibromyalgia M79.7 ; Hypertension I10 ; Anemia D64.9 ; Insomnia G47.00 ; Anxiety F41.9 ; Arthritis M19.90 and Migraine G43.909 [place] [address] [address] Mar, [address] [address] Feb, [address] [address]- 6028 Feb, Arthritis M19.90 and Anxiety F41.[address] [address]- [address] Feb, [facility] [address] [facility] [id number] [place] [address] 5945 Feb, [facility] [id number] [place] [address] 4[address] Feb, [facility] [id number] [place] [address]- 8951 Feb, [facility] [address] [place] [id number] [place] [address], [place] [address]- 0970 Feb, Anxiety F41.9 [facility] [id number] [place] [address], [place] [address]- 4445 Feb, [facility] [id number] [place] [address], [place] [address]- 9771 Feb, [facility] [id number] [place] [address] 0652 Feb, 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 and Fibromyalgia M79.7 [facility] [id number] [place] [address]- 1805 Feb, [facility] [id number] [place] [address], [place] [address]- 2535 Jan, [facility] [id number] [address]- 0728 Jan, [facility] [id number] [place] [address]- 4099 Jan, [facility] [id number] [place] [address]- 3465 24 Jan, 2015 [facility] [id number] [place] [address]- 1860 16 Jan, 2015 [facility] [id number] [place] [address]- 2540 08 Jan, 2015 [facility] [address] [place] [place] [id number] [address] 4848 Jan, [facility] [id number], [place] [address]- 96[address] Jan, [facility] [id number] [place] [address]- 6704 Dec, [facility] [address] [id number] [place] [address]- 0551 Dec, Left knee pain M25.562 [facility] [address] [id number] [place] [address] 078420- 8272 Dec, Left knee pain M25.562 [facility] [id number] [place] [address] 80810- 9599 Dec, Fibromyalgia M79.7 ; Hypertension I10 and Arthritis M19.90 [facility] [address] [id number] [place] [address] 19741- 8875 Dec, [facility] [id number] [place] [address] 91304- 5382 Dec, [facility] [id number] [place] [address] 44648- 4867 Dec, [facility] [id number] [place] [address] 31861- 0055 Dec, [facility] [id number] [place] [address] 60796- 7508 Nov, [facility] [id number] [place] [address] 73118- 7609 Nov, [facility] [id number] [place] [address] 07441- 7548 Nov, [facility] [id number] [place] [address] 76764- 2784 Nov, Hypertension I10 [facility] [id number] [place] [address] 48875- 1868 Oct, [facility] [address] [id number] [place] [address] 93465- 1570 17 Oct, 2014 [facility] [place] [facility] [address] [id number], [place] [address]- 4139 Oct, [facility] [place] [facility] [address] [id number], [place] [address]- 9678 Oct, [facility] [place] [facility] [address] [facility] [id number], [place] [address]- 9787 Oct, [facility] [place] [facility] [address] [facility] [id number], [place] [address]- 5599 Sep, [facility] [place] [facility] [address] [facility] [id number] [place] [address] 32274- 7557 Sep, [facility] [place] [facility] [id number] [address]- 9281 Sep, Hip pain associated with recalled total hip arthroplasty hardware 996.77 [facility] [place] [facility] [address] [id number], [place] [address]- 3358 Sep, [facility] [place] [facility] [address] [id number], [place] [address]- [address] Sep, [facility] [place] [facility] [address] [id number], [place] [address]- 6051 Sep, [facility] [place] [facility] [address] [id number], [place] [address]- 0378 Aug, [facility] [place] [facility] [address] [id number], [place] [address]- 0941 Jul, [facility] [place] [facility] [address] [facility] [id number], [place] [address]- 9498 June, [facility] [place] [facility] [address] [facility] [id number], [place] [address]- 8210 June, [facility] [place] [facility] [address] [facility] [id number], [place] [address]- 6653 June, [facility] [place] [facility] [address] [facility] [id number], [place] [address]- 8654 June, [facility] [place] [facility] [address] [id number] [place] [address]- 6336 June, [facility] [place] [facility] [address] [id number] [place] [address]- 8246 June, [facility] [place] [facility] [address] [id number] [place] [address]- 4466 May, [facility] [place] [facility] [address] [id number] [place] [address]- 3952 May, [facility] [place] [facility] [address] [id number] [place] [address]- 6582 May, [facility] [place] [facility] [address] [id number] [place] [address]- 5016 Apr, [facility] [place] [facility] [address] [id number] [place] [address]- 4299 Apr, [facility] [place] [facility] [address] [id number] [place] [address]- 9599 Apr, [facility] [place] [facility] [address] [id number] [place] [address]- 6823 Apr, [facility] [place] [facility] [address] [id number] [place] [address]- 9855 Apr, [facility] [place] [facility] [address] [id number], [place] [address]- 0240 Apr, [facility] [place] [facility] [address] [id number], [place] [address]- 4511 Apr, [facility] [place] [facility] [address] [id number] [place] [address]- 5225 Apr, [facility] [place] [facility] [address] [id number] [place] [address]- 1533 10 Apr, 2014 [facility] [place] [facility] [address] [id number] [place] [address]- 5255 05 Apr, 2014 [facility] [place] [facility] [address] [id number] [place] [address]- 2840 Apr, [facility] [place] [facility] [address] [id number] [place] [address]- 9106 Mar, 2014 [facility] [place] [facility] [address] [id number] [place] [address]- 9336 Mar, 2014 [facility] [place] [facility] [address] [id number] [place] [address]- 4136 Mar, 2014 [facility] [place] [facility] [address] [id number] [place] [address]- 1456 Mar, 2014 [facility] [place] [facility] [address] [id number] [place] [address]- 3446 Mar, [facility] [place] [facility] [address] [facility] [id number] [place] [address]- 7164 Mar, [facility] [place] [facility] [address] [facility] [id number] [place] [address]- 2253 Feb, [facility] [place] [facility] [address] [id number] [place] [address]- 5716 Feb, [facility] [place] [facility] [address] [facility] [id number] [place] [address]- 9988 Feb, [facility] [place] [facility] [address] [facility] [id number] [place] [address]- 7665 Feb, [facility] [place] [facility] [address] [id number] [place] [address]- 9372 Jan, [facility] [place] [facility] [address] [id number] [place] [address]- 2541 Jan, [facility] [place] [facility] [address] [id number] [place] [address] 2546 Jan, [facility] [place] [facility] [address] [id number] [place] [address]- 2546 Jan, [facility] [place] [facility] [address] [facility] [id number] [place] [address]- 7610 Dec, [facility] [place] [facility] [address] [id number] [place] [address]- 2012 Dec, [facility] [place] [facility] [address] [id number] [place] [address]- 6193 Dec, [facility] [place] [facility] [address] [id number] [place] [address]- 6987 Dec, [facility] [place] [facility] [address] [id number] [place] [address]- 4892 Dec, [facility] [place] [facility] [address] [id number] [place] [address]- 3757 Dec, [facility] [place] [facility] [address] [id number] [place] [address]- 4988 Dec, [facility] [place] [facility] [address] [id number] [place] [address]- 8912 Dec, [facility] [place] [facility] [address] [id number] [place] [address]- 0448 Dec, [facility] [place] [facility] [address] [id number] [place] [address]- 1863 Dec, [facility] [place] [facility] [address] [id number] [place] [address]- 5643 Dec, [facility] [place] [facility] [address] [id number], [place] [address]- 2106 Nov, [facility] [place] [facility] [address] [id number], [place] [address]- 3372 Nov, [facility] [place] [facility] [address] [id number] [place] [address]- 7579 Nov, [facility] [place] [facility] [address] [id number], [place] [address]- 7766 Nov, [facility] [place] [facility] [address] [id number], [place] [address]- 2747 Nov, [facility] [place] [facility] [address] [id number] [place] [address]- 5952 15 Nov, 2013 [facility] [place] [facility] [address] [id number] [place] [address]- 1963 15 Nov, 2013 [facility] [place] [facility] [address] [id number] [place] [address]- 4186 15 Nov, 2013 [facility] [place] [facility] [address] [id number] [place] [address]- 7296 15 Nov, 2013 [facility] [place] [facility] [address] [id number] [place] [address]- 8286 14 Nov, 2013 [facility] [place] [facility] [address] [id number] [place] [address]- 7176 14 Nov, 2013 [facility] [place] [facility] [address] [id number] [place] [address]- 8810 14 Nov, 2013 [facility] [place] [facility] [address] [id number] [place] [address]- 0490 14 Nov, 2013 [facility] [place] [facility] [address] [id number] [place] [address]- 1090 13 Nov, 2013 [facility] [place] [facility] [address] [id number] [place] [address]- 4599 13 Nov, 2013 [facility] [place] [facility] [address] [id number] [place] [address]- 2968 11 Nov, 2013 [facility] [place] [facility] [address] [id number] [place] [address]- 0079 11 Nov, 2013 [facility] [place] [facility] [address] [id number], [place] [address]- 2286 07 Nov, 2013 [facility] [place] [facility] [address] [id number] [place] [address]- 9016 07 Nov, 2013 [facility] [place] [facility] [address] [id number] [place] [address]- 5322 07 Nov, 2013 [facility] [place] [facility] [address] [id number], [place] [address]- 0361 07 Nov, 2013 [facility] [place] [facility] [address] [id number] [place] [address]- 2543 30 Oct, 2013 [facility] [place] [facility] [address] [id number] [place] [address] 2542 30 Oct, 2013 [facility] [place] [facility] [address] [id number] [place] [address]- 2540 26 Oct, 2013 [facility] [place] [facility] [address] [id number] [place] [address]- 4582 26 Oct, 2013 [facility] [place] [facility] [address] [id number] [place] [address]- 7792 22 Oct, 2013 [facility] [place] [facility] [address] [id number] [place] [address]- 0015 22 Oct, 2013 [facility] [place] [facility] [address] [id number] [place] [address]- 3018 18 Oct, 2013 [facility] [place] [facility] [address] [id number] [place] [address]- 2833 18 Oct, 2013 [facility] [place] [facility] [address] [id number] [place] [address]- 4175 18 Oct, 2013 [facility] [place] [facility] [address] [id number] [place] [address]- 1117 18 Oct, 2013 [facility] [place] [facility] [address] [id number] [place] [address]- 8457 12 Oct, 2013 [facility] [place] [facility] [address] [id number] [place] [address]- 2548 12 Oct, 2013 [facility] [place] [facility] [address] [id number] [place] [address]- 2542 Oct, 2013 [facility] [place] [facility] [address] [id number] [place] [address]- 2543 Oct, 2013 [facility] [place] [facility] [address] [id number] [place] [address]- 3923 Sep, [facility] [place] [facility] [address] [id number] [place] [address]- 9196 Sep, [facility] [place] [facility] [address] [id number] [place] [address]- 1275 Sep, [facility] [place] [facility] [address] [id number] [place] [address]- 7595 Sep, [facility] [place] [facility] [address] [id number] [place] [address]- 5077 Sep, [facility] [place] [facility] [address] [id number] [place] [address]- 3762 Sep, [facility] [place] [facility] [address] [id number] [place] [address]- 7760 Sep, [facility] [place] [facility] [address] [id number] [place] [address]- 7089 Sep, [facility] [place] [facility] [address] [id number] [place] [address]- 4798 Sep, [facility] [place] [facility] [address] [id number] [place] [address]- 7867 Sep, [facility] [place] [facility] [address] [id number] [place] [address]- 6630 Sep, [facility] [place] [facility] [address] [id number] [place] [address]- 1951 Sep, [facility] [place] [facility] [address] [id number] [place] [address]- 5822 Sep, [facility] [place] [facility] [address] [id number] [place] [address]- 9670 Sep, [facility] [place] [facility] [address] [id number] [place] [address]- 9453 Sep, [facility] [place] [facility] [address] [id number] [place] [address]- 0015 Sep, [facility] [place] [facility] [address] [id number] [place] [address]- 6105 Sep, [facility] [place] [facility] [address] [id number] [place] [address]- 6486 Sep, [facility] [address] [id number] [place] [address]- 3071 Aug, [facility] [place] [facility] [address] [id number] [place] [address]- 7109 Aug, [facility] [place] [facility] [address] [id number] [place] [address]- 6754 Aug, [facility] [place] [facility] [address] [id number] [place] [address]- 7808 Aug, [facility] [place] [facility] [address] [id number] [place] [address]- 1373 Aug, [facility] [place] [facility] [address] [id number] [place] [address]- 6300 Aug, [facility] [place] [facility] [address] [id number] [place] [address]- 9451 Jul, [facility] [place] [facility] [address] [id number] [place] [address]- 3219 Jul, [facility] [place] [facility] [address] [id number] [place] [address]- 8366 Jul, [facility] [address] [id number] [place] [address]- 2506 Jul, [facility] [place] [facility] [address] [id number] [place] [address]- 2699 June, [facility] [place] [facility] [address] [id number] [place] [address]- 4489 June, [facility] [place] [facility] [address] [id number] [place] 2589 June, [facility] [place] [facility] [address] [id number] [place] [address]- 7440 June, [facility] [place] [facility] [address] [id number] [place] [address]- 2764 June, [facility] [place] [facility] [address] [id number] [place] [address]- 7712 June, [facility] [place] [facility] [address] [id number] [place] [address]- 2419 June, [facility] [place] [facility] [address] [id number] [place] [address]- 1883 May, [facility] [place] [facility] [address] [id number] [place] [address]- 9010 May, [facility] [place] [facility] [address] [id number] [place] [address]- 1091 May, [facility] [place] [facility] [address] [id number] [place] [address]- 3254 May, [facility] [place] [facility] [address] [id number] [place] [address]- 7302 May, [facility] [place] [facility] [address] [id number] [place] [address]- 3840 May, [facility] [place] [facility] [address] [id number] [place] [address]- 5456 Apr, [facility] [place] [facility] [address] [id number] [place] [address]- 3425 31 Apr, 2013 [facility] [place] [facility] [address] [id number] [place] [address]- 6512 28 Apr, 2013 [facility] [place] [facility] [address] [id number] [place] [address]- 6241 28 Apr, 2013 [facility] [place] [facility] [address] [id number] [place] [address]- 8722 14 Apr, 2013 [facility] [place] [facility] [address] [id number] [place] [address]- 0316 14 Apr, 2013 [facility] [place] [facility] [address] [id number] [place] 3528 12 Apr, 2013 [facility] [place] [facility] [address] [id number] [place] [address]- 7236 Apr, [facility] [place] [facility] [address] [id number] [place] [address]- 5666 Apr, [facility] [place] [facility] [address] [id number] [place] [address]- 1681 Apr, [facility] [place] [facility] [address] [id number] [place] [address]- 1626 Apr, [facility] [place] [facility] [address] [id number] [place] [address]- 7194 Apr, [facility] [place] [facility] [address] [id number] [place] [address]- 0969 Apr, [facility] [place] [facility] [address] [id number] [place] [address]- 2198 Apr, [facility] [place] [facility] [address] [id number] [place] [address]- 8487 Mar, [facility] [place] [facility] [address] [id number] [place] [address]- 9162 Mar, [facility] [place] [facility] [address] [id number] [place] [address]- 2740 Mar, [facility] [place] [facility] [address] [facility] [id number] [place] [address]- 1686 Feb, [facility] [place] [facility] [address] [id number] [place] [address]- 8102 Feb, [facility] [place] [facility] [address] [id number] [place] [address]- 2649 Feb, [facility] [place] [facility] [address] [id number] [place] [address]- 2816 Feb, [facility] [place] [facility] [address] [id number] [place] [address]- 4189 Feb, [facility] [place] [facility] [address] [id number] [place] [address]- 7113 Feb, [facility] [place] [facility] [address] [id number] [place] [address]- 8531 Feb, [facility] [address] [id number] [place] [address] Feb, [facility] [place] [facility] [address] [id number] [place] [address] Feb, [facility] [address] [id number] [place] [address] Feb, [facility] [address] [id number] [place] [address] Jan, [facility] [place] [facility] [address] [id number] [place] [address] Jan, [facility] [address] [id number] [place] [address] Jan, [facility] [address] [id number] [place] [address] Jan, [facility] [address] [id number] [place] [address]181 Jan, [facility] [address] [id number] [place] [address] Jan, [facility] [address] [id number] [place] [address] 46[address] Jan, [facility] [place] [facility] [address] [id number] [place] [address] Jan, [facility] [place] [facility] [address] [id number] [place] [address] 8162 Jan, [facility] [place] [facility] [address] [id number] [place] [address] 98[address] Jan, [facility] [place] [facility] [address] [id number] [place] [address] 17 Jan, 2013 [facility] [place] [facility] [address] [id number] [place] [address]- [address] 17 Jan, 2013 [facility] [place] [facility] [address] [id number] [place] [address] 16 Jan, 2013 [facility] [place] [facility] [address] [id number] [place] [address] 9725 Jan, [facility] [place] [facility] [address] [facility] [id number] [place] [address]115 Jan, [facility] [place] [facility] [address] [id number] [place] [address] 224[address] Jan, [facility] [place] [facility] [address] [id number] [place] [address] Jan, [facility] [place] [facility] [address] [id number] [place] [address] 9549 Jan, [facility] [place] [facility] [address] [id number] [place] [address] 1392 Jan, [facility] [place] [facility] [address] [id number] [place] [address] 1556 Jan, [facility] [place] [facility] [address] [id number] [place] [address] 1442 Jan, [facility] [place] [facility] [address] [id number] [place] [address]67 Dec, [facility] [place] [facility] [address] [id number], [place] [address] Dec, [facility] [place] [facility] [address] [id number], [place] [address] Dec, [facility] [place] [facility] [address] [id number] [place] [address] 7411 Dec, [facility] [place] [facility] [address] [facility] [id number], [place] [address] 2013 Dec, [facility] [place] [facility] [address] [facility] [id number], [place] [address] Dec, [facility] [place] [facility] [address] [id number] [place] [address] 29[address] Dec, [facility] [address] [id number] [place] [address]- [address]111 Dec, [facility] [place] [facility] [address] [id number] [place] [address] 8645 Dec, [facility] [place] [facility] [address] [id number] [place] [address] 6252 Dec, [facility] [place] [facility] [address] [id number] [place] [address] 6470 Nov, [facility] [place] [facility] [address] [id number] [place] [address] 2406 Nov, [facility] [place] [facility] [address] [id number] [place] [address]- 4683 Nov, [facility] [place] [facility] [address] [id number] [place] [address] 1449 Nov, [facility] [place] [facility] [address] [id number] [place] [address] 4[address] Nov, [facility] [place] [facility] [address] [id number] [place] [address] Nov, [facility] [place] [facility] [address] [id number] [place] [address]- 0914 Nov, [facility] [place] [facility] [address] [id number] [place] [address]- 4271 Nov, [facility] [place] [facility] [address] [id number] [place] [address] 1782 10 Nov, 2012 [facility] [place] [facility] [address] [id number] [place] [address] Nov, [facility] [place] [facility] [address] [id number] [place] [address] 8900 Oct, [facility] [place] [facility] [address] [id number] [place] [address] 3539 Oct, [facility] [place] [facility] [address] [id number] [place] [address] 7574 Oct, [facility] [place] [facility] [address] [id number] [place] [address]- 7440 Oct, [facility] [place] [facility] [address] [id number] [place] [address] 0315 Oct, [facility] [place] [facility] [address] [id number] [place] [address]47 Sep, [facility] [address] [id number] [place] [address]323 Sep, [facility] [place] [facility] [address] [id number] [place] [address] 0334 Aug, [facility] [place] [facility] [address] [id number] [place] [address] 4436 Aug, [facility] [address] [id number] [place] [address]- 7206 Aug, [facility] [place] [facility] [address] [id number] [place] [address]- 2095 Aug, [facility] [place] [facility] [address] [id number] [place] [address] 5823 Aug, [facility] [place] [facility] [address] [id number] [place] [address] 9249 Aug, [facility] [place] [facility] [address] [id number] [place] [address]- 7286 Aug, [facility] [place] [facility] [address] [id number] [place] [address]- 7148 Jul, [facility] [place] [facility] [address] [id number] [place] [address]005 Jul, [facility] [place] [facility] [address] [id number] [place] [address] 5863 June, [facility] [place] [facility] [address] [id number] [place] [address]- 6925 June, [facility] [address] [id number] [place] [address]- 3594 June, [facility] [address] [id number] [place] [address] June, [facility] [address] [id number] [place] [address]- [address]805 June, [facility] [address] [id number] [place] [address]- 2837 June, [facility] [address] [id number] [place] [address]- 6039 June, [facility] [address] [id number] [place] [address]- 4366 June, [facility] [address] [id number] [place] [address] June, [facility] [address] [id number] [place] [address] June, [facility] [address] [id number] [place] [address] June, [facility] [address] [id number] [place] [address] May, [facility] [address] [id number] [place] [address] May, [facility] [place] [facility] [address] [id number] [place] [address] May, [facility] [address] [id number] [place] [address] May, [facility] [place] [facility] [address] [id number] [place] [address] Apr, [facility] [place] [facility] [address] [id number] [place] [address] Apr, [facility] [place] [facility] [address] [id number] [place] [address] 244[address] Apr, [facility] [address] [id number] [place] [address] Mar, [facility] [place] [facility] [address] [id number] [place] [address] 25[address] Mar, [facility] [address] [id number] [place] [address] 29 Feb, 2012 [facility] [place] [facility] [address] [id number] [place] [address] 17[address] Feb, [facility] [address] [id number] [place] [address] 1506 Feb, [facility] [address] [id number] [place] [address] Feb, [facility] [address] [id number] [place] [address] 6396 16 Feb, 2012 [facility] [address] [id number] [place] [address] 14 Feb, 2012 [facility] [address] [id number] [place] [address] 240[address] Feb, [facility] [address] [id number] [place] [address] 1666 31 Jan, 2012 [facility] [address] [id number] [place] [address]- 6[address] 31 Jan, 2012 [facility] [place] [facility] [address] [id number] [place] [address] 1374 28 Jan, 2012 [facility] [place] [facility] [address] [id number] [place] [address]- 9156 17 Jan, 2012 [facility] [place] [facility] [address] [id number] [place] [address]- 6[address] 17 Jan, 2012 [facility] [place] [facility] [address] [id number] [place] [address] Jan, [facility] [place] [facility] [address] [id number] [place] [address] 46[address] Jan, [facility] [place] [facility] [address] [id number] [place] [address]- 2887 Jan, [facility] [place] [facility] [address] [facility] [id number] [place] [address]- 5677 Jan, [facility] [place] [facility] [address] [id number] [place] [address] Jan, [facility] [place] [facility] [address] [id number] [place] [address]- 7062 Jan, [facility] [place] [facility] [address] [id number] [place] [address]- 1085 Dec, [facility] [place] [facility] [address] [id number] [place] [address]- 28[address] Dec, [facility] [place] [facility] [address] [id number] [place] [address]- 1093 Dec, [facility] [place] [facility] [address] [id number] [place] [address]- 6543 Dec, [facility] [place] [facility] [address] [facility] [id number] [place] [address]- 1117 Nov, [facility] [place] [facility] [address] [id number], [place] [address]- [address] Nov, [facility] [place] [facility] [address] [id number], [place] [address] Nov, [facility] [place] [facility] [address] [id number] [place] [address]- 8057 Oct, [facility] [place] [facility] [address] [id number], [place] [address] 24 Oct, 2011 [facility] [place] [facility] [address] [id number], [place] [address] Oct, [facility] [place] [facility] [address] [id number] [place] [address]- 1426 10 Oct, 2011 [facility] [place] [facility] [address] [id number] [place] 07 Oct, 2011 [facility] [place] [facility] [address] [id number] [place] [address] 2546 04 Oct, 2011 [facility] [place] [facility] [address] [id number] [place] [address] 2546 04 Oct, 2011 [facility] [place] [facility] [address] [id number] [place] [address] 2546 29 Sep, 2011 [facility] [place] [facility] [address] [id number] [place] [address]- 1806 Sep, [facility] [place] [facility] [address] [id number] [place] [address]- 4249 Sep, [facility] [place] [facility] [address] [id number] [place] [address]- 9358 Sep, [facility] [place] [facility] [address] [id number] [place] [address]- 4908 Sep, [facility] [place] [facility] [address] [id number] [place] [address]- 4430 30 Aug, 2011 [facility] [place] [facility] [address] [id number] [place] [address]- 2394 Aug, [facility] [place] [facility] [address] [id number] [place] [address] 2546 17 Aug, 2011 [facility] [place] [facility] [address] [id number] [place] [address] 2541 16 Aug, 2011 [facility] [place] [facility] [address] [id number] [place] [address]- 5296 13 Aug, 2011 [facility] [place] [facility] [address] [id number] [place] [address] 2546 Aug, [facility] [place] [facility] [address] [id number] [place] [address]- 4453 Aug, [facility] [place] [facility] [address] [id number] [place] [address] 2672 Jul, [facility] [place] [facility] [address] [id number] [place] [address]- 0123 Jul, [facility] [place] [facility] [address] [id number] [place] [address]- 5362 Jul, [facility] [place] [facility] [address] [id number] [place] [address]- 5571 Jul, [facility] [place] [facility] [address] [id number] [place] [address] 6[address] Jul, [facility] [place] [facility] [address] [id number] [place] [address]- 9180 Jul, [facility] [place] [facility] [address] [id number] [place] [address]- 7873 Jul, [facility] [place] [facility] [address] [id number] [place] [address]- 1417 Jul, [facility] [place] [facility] [address] [id number] [place] [address]- 6364 Jul, [facility] [place] [facility] [address] [id number] [place] [address]- 1744 June, [facility] [place] [facility] [address] [id number] [place] [address]- 4015 June, [facility] [place] [facility] [address] [id number] [place] [address]- 3112 June, [facility] [place] [facility] [address] [id number] [place] [address]- 5248 June, [facility] [place] [facility] [address] [id number] [place] [address]- 9225 June, [facility] [place] [facility] [address] [id number] [place] [address]- 7606 June, [facility] [place] [facility] [address] [id number] [place] [address]- 2546 June, [facility] [place] [facility] [address] [id number] [place] [address]- 5318 June, [facility] [place] [facility] [address] [id number] [place] [address]- 6716 May, [facility] [place] [facility] [address] [id number] [place] [address]- 7746 May, [facility] [place] [facility] [address] [id number] [place] [address]- 6544 May, [facility] [place] [facility] [address] [id number] [place] [address]- 9106 May, [facility] [place] [facility] [address] [id number] [place] [address]- 6791 May, [facility] [place] [facility] [address] [id number] [place] [address] May, [facility] [place] [facility] [address] [id number] [place] [address]- 2547 May, [facility] [place] [facility] [address] [id number] [place] [address]- 1831 Apr, [facility] [place] [facility] [address] [id number] [place] [address]- 6873 Apr, [facility] [place] [facility] [address] [id number] [place] [address]- 4260 Apr, [facility] [place] [facility] [address] [id number] [place] [address]- 0240 Apr, [facility] [place] [facility] [address] [id number] [place] [address]- 9167 Apr, [facility] [place] [facility] [address] [id number] [place] [address]- 4990 Apr, [facility] [place] [facility] [address] [id number] [place] [address]- 4819 Apr, [facility] [place] [facility] [address] [id number] [place] [address]- 0496 20 Mar, 2011 [facility] [place] [facility] [address] [id number] [place] [address]- 3556 20 Mar, 2011 [facility] [place] [facility] [address] [id number] [place] [address] 2546 14 Mar, 2011 [facility] [place] [facility] [address] [id number] [place] [address] 2546 13 Mar, 2011 [facility] [place] [facility] [address] [id number] [place] [address] 2546 Mar, [facility] [place] [facility] [address] [id number] [place] [address]- 5396 Mar, [facility] [place] [facility] [address] [id number] [place] [address]- 6733 Mar, [facility] [place] [facility] [address] [id number] [place] [address]- 7869 Feb, [facility] [place] [facility] [address] [id number] [place] [address]- 8906 Feb, [facility] [place] [facility] [address] [id number] [place] [address]- 4944 Feb, [facility] [place] [facility] [address] [id number] [place] [address]- 8408 Feb, [facility] [place] [facility] [address] [id number] [place] [address]- 7496 Feb, [facility] [place] [facility] [address] [id number] [place] [address]- 2671 Feb, [facility] [place] [facility] [address] [id number] [place] [address]- 5556 Feb, [facility] [place] [facility] [address] [id number] [place] [address]- 5266 Feb, [facility] [place] [facility] [address] [id number] [place] [address]- 2166 Feb, [facility] [address] [id number] [place] [address] Feb, [facility] [place] [facility] [address] [id number] [place] [address]- 4715 Jan, [facility] [place] [facility] [address] [id number] [place] [address]- 6626 Jan, [facility] [place] [facility] [address] [id number] [place] [address]- 9080 Jan, [facility] [place] [facility] [address] [id number] [place] [address]- 1806 Jan, [facility] [place] [facility] [address] [id number] [place] [address]- 1660 Jan, [facility] [place] [facility] [address] [id number] [place] [address]- 6501 Jan, [facility] [place] [facility] [address] [id number] [place] [address]- 6130 Jan, [facility] [place] [facility] [address] [id number] [place] [address]- 0159 Jan, [facility] [place] [facility] [address] [id number] [place] [address]- 4817 Jan, [facility] [place] [facility] [address] [id number] [place] [address]- 5688 Jan, [facility] [place] [facility] [address] [id number] [place] [address]- 8941 Jan, [facility] [place] [facility] [address] [id number] [place] [address]- 0768 Dec, [facility] [place] [facility] [address] [id number] [place] [address]- 7504 Dec, [facility] [place] [facility] [address] [id number] [place] [address]- 5254 Dec, [facility] [place] [facility] [address] [id number] [place] [address]- 6430 16 Dec, 2010 [facility] [address] [id number] [place] [address]- 5031 14 Dec, 2010 [facility] [place] [facility] [address] [id number] [place] [address]- 9767 09 Dec, 2010 [facility] [place] [facility] [address] [id number] [place] [address]- 2730 08 Dec, 2010 [facility] [place] [facility] [address] [id number] [place] [address]- 0628 07 Dec, 2010 [facility] [place] [facility] [address] [id number] [place] [address]- 5451 Dec, [facility] [place] [facility] [address] [id number] [place] [address]- 8390 Nov, [facility] [place] [facility] [address] [id number] [place] [address]- 9742 Nov, [facility] [place] [facility] [address] [id number] [place] [address]- 1194 27 Nov, 2010 [facility] [place] [facility] [address] [id number] [place] [address]- 1263 24 Nov, 2010 [facility] [place] [facility] [address] [id number] [place] [address]- 3429 24 Nov, 2010 [facility] [place] [facility] [address] [id number] [place] [address]- 8104 13 Nov, 2010 [facility] [place] [facility] [address] [id number] [place] [address]- 9585 Aug, [facility] [place] [facility] [address] [id number] [place] [address]- 8855 14 Feb, 2010 [facility] [place] [facility] [address] [id number] [place] [address]- 7343 14 Jan, 2010 [facility] [place] [facility] [address] [id number] [place] [address] Jan, [facility] [address] [id number], [place] [address]- 3808 Jan, [facility] [id number], [place] [address]- 2452 Jan, [facility] [address] [id number], [place] [address]- 2502 Jan, [facility] [address] [facility] [id number] 3468 Dec, [facility] [id number] [address] Dec, [facility] [id number], [place] [address]- 6853 Dec, [facility] [id number], [place] [address]- 1848 Dec, [facility] [id number], [place] [address]- 1744 Nov, [facility] [address] [id number], [place] [address]- 9619 Nov, [facility] [address] [id number], [place] [address]- 1517 Nov, IMMUNIZATIONS No Known Immunizations SOCIAL HISTORY Never Assessed REASON FOR VISIT [place] PLAN OF CARE VITAL SIGNS MEDICATIONS Medication Instructions Dosage Frequency Start Date End Date Duration Status Promethazine HCl 25 MG Orally every 12 hrs 1 tablet as needed 12h 30 Active RESULTS No Results PROCEDURES No [...]
--- OUTSIDE RECORDS SUMMARY | 2018-01-13 20:51 | XMS REPORT ---
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 Active 701491363 Problem Hypertension I10 Active 14660602 Problem Arthritis M19.90 Active 4563814 Problem 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 Active 56970477 Problem Anxiety F41.9 Active 34042896 Problem Unspecified episodic mood disorder F39 Active 98344986 Problem Left hip pain M25.552 Active 80887666 ALLERGIES No Information ENCOUNTERS Encounter Location Date Diagnosis [facility] [place] [address] [facility] [id number] [address] Sep, Unspecified episodic mood disorder F39 [facility] [place] [address] [facility] [id number] [address] Aug, [facility] [address] [id number] [id number] Aug, [facility] [place] [address] [address] Aug, Arthritis M19.90 [facility] [place] [address], [place] [address] Aug, [facility] [place] [address], [place] [address] Aug, Obesity (BMI 30.0-34.9) E66.9 ; Unspecified episodic mood disorder F39 and Hypertension I10 [facility] [place] [address], [place] [address] Aug, Unspecified episodic mood disorder F39 [facility] [place] [address] [place] [id number] [place] [address]82[address] 7[address] Aug, [facility] [place] [id number] [place] [address] 57144- 4[address] Jul, Unspecified episodic mood disorder F39 [facility] [place] [address], [place] [address] Jul, [facility] [place] [id number] [place] [address] 73584- 0219 Jul, Arthritis M19.90 [facility] [place] [address], [place] [address] Jul, Left hip pain M25.552 ; Hypertension I10 ; Other obesity due to excess calories E66.09 and Body mass index (BMI) of 34.0-34.9 in adult Z68.34 [facility] [place] [address], [place] [address] Jul, Unspecified episodic mood disorder F39 [facility] [place] [address], [place] [address] June, Gastroesophageal reflux disease, esophagitis presence not specified K21.9 [facility] [place] [id number] [place] [address] 04090- 6450 June, [facility] [place] [address], [place] [address] June, [facility] [place] [address], [place] [address] June, Arthritis M19.90 [facility] [place] [address], [place] [address] June, [facility] [place] [id number] [place] [address] 12526- 5661 June, [facility] [place] [address], [place] [address] June, Unspecified episodic mood disorder F39 [facility] [place] [address], [place] [address] May, Unspecified episodic mood disorder F39 [facility] [place] [id number] [place] [address] 61607- 2266 May, [facility] [place] [id number] [place] [address] 50747- 7031 May, Arthritis M19.90 [facility] [id number] [place] [address]12 [address] May, Dysuria R30.0 ; Abscess L02.91 and Acute cystitis without hematuria N30.00 [facility] [place] [address], [place] [address] May, 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 ; Unspecified episodic mood disorder F39 ; Combined drug dependence excluding opioids, 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 ; Anxiety F41.9 and Other psychoactive substance dependence, 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 [facility] [place] [address], [place] [address] May, [facility] [place] [address], [place] [address] May, 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 ; Unspecified episodic mood disorder F39 ; Combined drug dependence excluding opioids, 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 ; Other psychoactive substance dependence, 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XXXA [facility] [place] [address] [address] Apr, Unspecified episodic mood disorder F39 ; Combined drug dependence excluding opioids, 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 ; Anxiety F41.9 ; Other psychoactive substance dependence, 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 and 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 [facility] [place] [address] [address] Apr, [facility] [place] [address] [address]- [address] Apr, Arthritis M19.90 and Unspecified episodic mood disorder F39 [facility] [place] [id number] [place] [address] 55091- 1019 Apr, Unspecified episodic mood disorder F39 [facility] [place] [id number] [place] [address]53- [address] Apr, [facility] [place] [address] [address]- 4[address] Apr, [facility] [place] [id number] [place] [address] 91350- 4719 Apr, Unspecified episodic mood disorder F39 ; Combined drug dependence excluding opioids, 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 ; Anxiety F41.9 ; Other psychoactive substance dependence, 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 and 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 [facility] [place] [id number] [place] [address] 26546- 1626 Mar, Unspecified episodic mood disorder F39 [facility] [place] [id number] [place] [address] 18389- 6256 Mar, Gastroesophageal reflux disease, esophagitis presence not specified K21.9 [facility] [place] [id number] [place] [address] 72328 2546 Mar, Arthritis M19.90 and Unspecified episodic mood disorder F39 [facility] [place] [id number] [place] [address] 69082- 1866 Feb, [facility] [place] [address] 47[address]- 4186 Feb, [facility] [place] [id number] [place] [address]30 2546 Feb, [facility] [place] [id number] [place] [address] 69177 2546 Feb, Arthritis M19.90 [facility] [place] [id number] [place] [address]23 2546 Feb, Non-pressure chronic ulcer of right calf, 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 ; Unspecified episodic mood disorder F39 and Left hip pain M25.552 [facility] [place] [id number] [place] [address] 49721 2546 Feb, [facility] [place] [id number] [place] [address] 52157 2546 Feb, [facility] [place] [id number] [place] [address] 81086 2546 Jan, Arthritis M19.90 [facility] [place] [id number] [place] [id number]- 5397 Jan, Left hip pain M25.552 and Non-pressure chronic ulcer of right calf, 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 [facility] [place] [address] [address]- 6169 Jan, Chronic hepatitis C without hepatic coma B18.2 [facility] [place] [address] 69298- 9295 Jan, Encounter for immunization Z23 ; Venous insufficiency ( chronic) (peripheral) I87.2 ; Non-pressure chronic ulcer of unspecified calf limited to breakdown of skin L97.201 and Gastroesophageal reflux disease, esophagitis presence not specified K21.9 [place] [address] [address]47- [address]39 Jan, [place] [address] [address]23- 8863 Jan, Chronic hepatitis C without hepatic coma B18.2 and Encounter for immunization Z23 [facility] [place] [address] 6[address]18- 2656 Jan, Arthritis M19.90 [facility] [place] [address] 6[address]- 5813 Jan, [facility] [place] [id number] [place] [address] 47378- 6360 Dec, [facility] [place] [id number] [place] [address] 14131- 7925 Dec, Unspecified episodic mood disorder F39 [facility] [place] [id number] [place] [address] 30242- 7189 Dec, Arthritis M19.90 [facility] [place] [address] 54247- 9353 Dec, Arthritis M19.90 [facility] [place] [id number] [place] [address] 54990- 0202 Nov, [facility] [place] [address] 78702- 9423 Nov, [facility] [place] [id number] [place] [address] 65822- 2395 Nov, Other psychoactive substance dependence, 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 ; 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, 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 and Chronic hepatitis C without hepatic coma B18.2 [facility] [place] [id number] [place] [address] 86936- 6069 Nov, Arthritis M19.90 [facility] [id number] [place] [address] 26189 -2253 Oct, Partial thickness burn of abdomen, initial encounter T21.22XA [facility] [place] [id number] [place] [address] 85866- 4839 Oct, [facility] [place] [id number] [place] [address] 05532- 5680 Sep, Arthritis M19.90 [facility] [place] [id number] [place] [address] 29516- 4944 Sep, [facility] [place] [id number] [place] [address] 23483- 4555 Sep, [facility] [place] [id number] [place] [address] 07720- 7977 Sep, Unspecified episodic mood disorder F39 ; Chronic hepatitis C without hepatic coma B18.2 and Left hip pain M25.552 [facility] [place] [id number] [place] [address] 57257- 8501 Sep, Arthritis M19.90 and Left hip pain M25.552 [facility] [place] [id number] [place] [address] 94967- 2787 Aug, [facility] [place] [id number] [place] [address] 88724- 8106 Aug, [facility] [place] [id number] [place] [address] 09817- 2538 Aug, Chronic hepatitis C without hepatic coma B18.2 [facility] [place] [address], [place] [address]- 1638 Aug, [facility] [place] [id number] [place] [address] 79218- 1098 Aug, Chronic hepatitis C without hepatic coma B18.2 [facility] [place] [id number] [place] [address] 48719- 7688 Aug, 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, 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 [facility] [place] [id number] [place] [address] 80535- 0563 Aug, [facility] [place] [id number] [place] [address] 03677- 2787 Aug, Chronic hepatitis C without hepatic coma B18.2 and Hypertension I10 [facility] [place] [id number] [place] [address] 90271- 3040 Jul, [facility] [place] [id number] [place] [address] 73370- 4741 June, [facility] [place] [id number] [place] [address] 64368- 1970 Apr, Fibromyalgia M79.7 ; Left hip pain M25.552 and Decubitus ulcer of sacral region, stage 1 L89.151 [facility] [place] [id number] [place] [address] 06430- 6237 Apr, [facility] [place] [id number] [place] [address] 89850- 5620 Apr, [facility] [place] [id number] [place] [address] 69323- 6378 Feb, [facility] [place] [id number] [place] [address] 95976- 2942 Dec, Anxiety F41.9 ; Combined drug dependence excluding opioids, 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 and Unspecified episodic mood disorder F39 [facility] [place] [address], [place] [address]- 4673 Dec, [facility] [place] [id number] [place] [address] 54312- 4556 Nov, [facility] [place] [id number] [place] [address] 77287- 1979 Nov, [facility] [place] [id number] [place] [address] 33405- 6989 Nov, 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 and Anxiety F41.9 [facility] [place] [id number] [place] [address] 90172- 1724 Oct, [facility] [id number] [place] [address] 16488 -1541 14 Oct, 2015 Open wound of left thigh, initial encounter S71.102A [facility] [place] [id number] [place] [address] 85068- 4856 Oct, [facility] [place] [id number] [place] [address] 79503- 2088 Sep, Unspecified episodic mood disorder F39 ; Other disorder of impulse control 312.39 ; Combined drug dependence excluding opioids, 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 and Anxiety F41.9 [facility] [place] [id number] [place] [address] 90199- 9144 Sep, Other disorder of impulse control 312.39 ; Combined drug dependence excluding opioids, 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 ; Anxiety F41.9 and Unspecified episodic mood disorder F39 [facility] [place] [id number] [place] [address] 15168- 7005 Sep, Other chronic pain G89.29 [facility] [place] [id number] [place] [address] 38203- 5166 Sep, [facility] [place] [id number] [place] [address] 65778- 6743 Sep, [facility] [place] [id number] [place] [address] 93845- 9498 Aug, [facility] [place] [address] [place] [address]- 8446 Aug, [facility] [place] [id number] [place] [address] 64168- 4201 Aug, [facility] [place] [id number] [place] [address] 09224- 1230 Jul, [facility] [place] [id number] [place] [address] 80554- 2454 Jul, [facility] [place] [id number] [place] [address] 78861- 3305 Jul, [facility] [place] [id number] [place] [address] 26767- 0769 Jul, Arthritis M19.90 ; Chronic hepatitis C without hepatic coma B18.2 and Left hip pain M25.552 [facility] [place] [id number] [place] [address] 39658- 1163 Jul, Left knee pain M25.562 [facility] [place] [id number] [place] [address] 23993- 1981 Jul, Combined drug dependence excluding opioids, 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 ; Anxiety F41.9 ; Other disorder of impulse control 312.39 and Unspecified episodic mood disorder F39 [facility] [place] [id number] [place] [address] 76951- 8172 Jul, Left knee pain M25.562 [facility] [place] [id number] [place] [address] 30369- 6185 Jul, Left knee pain M25.562 and Left hip pain M25.552 [facility] [place] [id number] [place] [address] 60107- 3361 Jul, [facility] [place] [id number] [place] [address] 06277- 3006 June, [facility] [place] [id number] [place] [address] 96238- 6851 June, Combinations of drug dependence excluding opioid type drug, unspecified abuse 304.80 ; Other disorder of impulse control 312.39 ; Unspecified episodic mood disorder F39 and Anxiety F41.9 [facility] [place] [id number] [place] [address] 75972- 8359 June, Other fatigue R53.83 ; Headache R51 and Left knee pain M25.562 [facility] [place] [id number] [place] [address] 04717- 5757 June, Unspecified episodic mood disorder F39 ; Combinations of drug dependence excluding opioid type drug, unspecified abuse 304.80 ; Other disorder of impulse control 312.39 and Anxiety F41.9 [facility] [place] [id number] [place] [address] 81293- 0212 June, Anxiety F41.9 [facility] [id number] [place] [address] 04804- 3972 June, Pain in left knee M25.562 [facility] [id number] [place] [address] 03569- 0627 June, Anxiety F41.9 and Combinations of drug dependence excluding opioid type drug, unspecified abuse 304.80 [facility] [place] [id number] [place] [address] 36432- 8667 June, Unspecified episodic mood disorder 296.90 ; Combinations of drug dependence excluding opioid type drug, unspecified abuse 304.80 and Other disorder of impulse control 312.39 [facility] [place] [id number] [place] [address] 32983- 5947 June, Anxiety F41.9 and Unspecified episodic mood disorder 296.90 [facility] [facility] [id number] [place] [address] 08565- 6724 May, Arthritis M19.90 [facility] [place] [id number] [place] [address] 20807- 9958 May, Arthritis M19.90 [facility] [place] [id number] [address] 18 May, 2015 Anxiety F41.9 ; Combinations of drug dependence excluding opioid type drug, unspecified abuse 304.80 and Other disorder of impulse control 312.39 [facility] [place] [id number] [address] 18 May, 2015 Left knee pain M25.562 [facility] [facility] [place] [id number] [place] [address] 94182- 8299 14 May, 2015 Arthritis M19.90 [facility] [place] [id number] [place] [address] 53989- 0467 13 May, 2015 [facility] [place] [id number] [place] [address] 51738- 8580 May, Anxiety F41.9 ; Unspecified episodic mood disorder 296.90 ; Combinations of drug dependence excluding opioid type drug, unspecified abuse 304.80 and Other disorder of impulse control 312.39 [facility] [place] [address] [address] 11 May, 2015 Left knee pain M25.562 [place] [id number] [place] [address] 94080- 4707 11 May, 2015 Left knee pain M25.562 ; Combinations of drug dependence excluding opioid type drug, unspecified abuse 304.80 ; Other disorder of impulse control 312.39 ; Fibromyalgia M79.7 ; Hypertension I10 ; Unspecified episodic mood disorder 296.90 and Left hip pain M25.552 [facility] [place] [address] [address] 6557 11 May, 2015 Unspecified episodic mood disorder 296.90 ; Other disorder of impulse control 312.39 ; Combinations of drug dependence excluding opioid type drug, unspecified abuse 304.80 and Anxiety F41.9 [facility] [place] [address], [place] [address] 7[address] 06 May, 2015 Left knee pain M25.562 ; Combinations of drug dependence excluding opioid type drug, unspecified abuse 304.80 ; Other disorder of impulse control 312.39 ; Fibromyalgia M79.7 ; Hypertension I10 ; Unspecified episodic mood disorder 296.90 and Left hip pain M25.552 [place] [id number] [place] [address] 26731- 4485 May, Anxiety F41.9 ; Unspecified episodic mood disorder 296.90 ; Other disorder of impulse control 312.39 and Combinations of drug dependence excluding opioid type drug, unspecified abuse 304.80 [place] [id number] [place] [address] 92137- 6779 30 Apr, 2015 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9 ; Unspecified episodic mood disorder 296.90 ; Combinations of drug dependence excluding opioid type drug, unspecified abuse 304.80 and Other disorder of impulse control 312.39 [place] [id number] [place] [address] 01590- 5222 Apr, Arthritis M19.90 [place] [id number] [place] [address] 32121- 0624 Apr, [place] [id number] [place] [address] 30916- 3456 Apr, [place] [id number] [place] [address] 94846- 5541 14 Apr, 2015 Unspecified episodic mood disorder 296.90 ; Combinations of drug dependence excluding opioid type drug, unspecified abuse 304.80 ; Other disorder of impulse control 312.39 and Anxiety F41.9 [facility] [id number] [place] [address] 98419 -9555 Apr, Left knee pain M25.562 [facility] [place] [id number] [place] [address] 31982- 7048 Apr, [facility] [place] [id number] [place] [address] 03529- 2123 Mar, Unspecified episodic mood disorder 296.90 ; Anxiety F41.9 ; Other disorder of impulse control 312.39 and Combinations of drug dependence excluding opioid type drug, unspecified abuse 304.80 [facility] [place] [id number] [place] [address] 01689- 9206 Mar, Hyperpigmentation L81.9 [facility] [place] [id number] [place] [address] 68510- 6709 Mar, Arthritis M19.90 and Anxiety F41.9 [facility] [place] [id number] [place] [address] 78892- 9032 Mar, Unspecified episodic mood disorder F39 ; Combined drug dependence excluding opioids, 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 ; 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 and Anxiety F41.9 [facility] [place] [id number] [place] [address] 76115- 5453 12 Mar, 2015 Well woman exam Z01.419 ; Other fatigue R53.83 ; Hot flashes N95.1 ; Depression, unspecified depression type F32.9 and Body mass index (BMI) of 23.0-23.9 in adult Z68.23 [place] [id number] [place] [address] 77395- 6643 11 Mar, 2015 Unspecified episodic mood disorder 296.90 ; Other disorder of impulse control 312.39 and Anxiety F41.9 [facility] [place] [id number] [place] [address] 26098- 6204 Mar, Well woman exam Z01.419 ; Encounter [...] of breast Z12.39 and Limited mobility Z74.[address] 34391- 9077 Mar, [address] 21622- 3740 Mar, [address] 35251- 4408 Mar, [address] 39688- 7910 Mar, Other specified complication of internal orthopedic prosthetic devices, implants and grafts, initial encounter T84.89XA ; Fibromyalgia M79.7 ; Hypertension I10 ; Anemia D64.9 ; Insomnia G47.00 ; Anxiety F41.9 ; Arthritis M19.90 and Migraine G43.909 [place] [address] 94887- 0493 Mar, [address] 21910- 6996 Feb, [address] 05848- 3119 Feb, Arthritis M19.90 and Anxiety F41.[address] 58936- 6583 Feb, [facility] [place] [address] [facility] [id number] [place] [address]- 5170 Feb, [facility] [place] [id number] [place] [address]- 0304 Feb, [facility] [place] [id number] [place] [address]- 2740 Feb, [facility] [place] [id number] [place] [address], [place] [address]- 7968 Feb, Anxiety F41.9 [facility] [place] [id number] [place] [address], [place] [address]- 1842 Feb, [facility] [place] [id number] [place] [address], [place] [address]- 3280 Feb, [facility] [place] [id number] [place] [address]- 9509 Feb, 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 and Fibromyalgia M79.7 [facility] [place] [id number] [place] [address]- 0650 Feb, [facility] [place] [id number] [place] [address], [place] [address]- 9163 Jan, [facility] [place] [id number], [place] [address]- 5751 Jan, [facility] [place] [id number] [place] [address]- 8209 Jan, [facility] [place] [id number] [place] [address]- 1284 24 Jan, 2015 [facility] [place] [id number] [place] [address]- 0132 16 Jan, 2015 [facility] [place] [id number] [place] [address]- 254 08 Jan, 2015 [facility] [place] [id number], [place] [address]- 7168 Jan, [facility] [place] [address], [place] [address]- 9889 Jan, [facility] [id number] [place] [address] 81207- 2623 Dec, [facility] [id number] [place] [address] 94536- 9549 Dec, Left knee pain M25.562 [facility] [place] [id number] [place] [address] 946575- 3777 Dec, Left knee pain M25.562 [facility] [place] [id number] [place] [address] 18874- 8249 Dec, Fibromyalgia M79.7 ; Hypertension I10 and Arthritis M19.90 [facility] [place] [id number] [place] [address] 94111- 9275 Dec, [facility] [place] [id number] [place] [address] 89288- 7679 Dec, [facility] [place] [id number] [place] [address] 67946- 7352 Dec, [facility] [place] [id number] [place] [address] 15832- 6873 Dec, [facility] [place] [id number] [place] [address] 82417- 0926 Nov, [facility] [place] [id number] [place] [address] 42393- 4308 Nov, [facility] [place] [id number] [place] [address] 06824- 8171 Nov, [facility] [place] [id number] [place] [address] 25094- 0553 Nov, Hypertension I10 [facility] [place] [id number] [place] [address] 43076- 8397 Oct, [facility] [place] [id number] [place] [address] 35680- 6067 17 Oct, 2014 [facility] [place] [facility] [address] [id number], [place] [address]- 3525 Oct, [facility] [place] [facility] [address] [id number], [place] [address]- 4889 Oct, [facility] [place] [facility] [address] [facility] [id number], [place] [address]- 4043 Oct, [facility] [place] [facility] [address] [facility] [id number], [place] [address]- 0834 Sep, [facility] [place] [facility] [address] [facility] [id number] [place] [address] 15003- 9172 Sep, [facility] [place] [facility] [id number], [place] [address]- 1188 Sep, Hip pain associated with recalled total hip arthroplasty hardware 996.77 [facility] [place] [facility] [id number], [place] [address]- 8803 Sep, [facility] [place] [facility] [id number], [place] [address]- 6097 Sep, [facility] [place] [facility] [id number], [place] [address]- 6177 Sep, [facility] [place] [facility] [id number], [place] [address]- 1850 Aug, [facility] [place] [facility] [id number], [place] [address]- 9959 Jul, [facility] [place] [facility] [address] [facility] [id number], [place] [address]- 1796 June, [facility] [place] [facility] [address] [facility] [id number], [place] [address]- 5660 June, [facility] [place] [facility] [address] [facility] [id number], [place] [address]- 7597 June, [facility] [place] [facility] [address] [facility] [id number], [place] [address]- 7980 June, [facility] [place] [facility] [address] [id number] [place] [address]- 5638 June, [facility] [place] [facility] [address] [id number] [place] [address]- 6266 June, [facility] [place] [facility] [address] [id number] [place] [address]- 4117 May, [facility] [place] [facility] [address] [id number] [place] [address]- 6038 May, [facility] [place] [facility] [address] [id number] [place] [address]- 0434 May, [facility] [place] [facility] [address] [id number] [place] [address]- 6206 Apr, [facility] [place] [facility] [address] [id number] [place] [address]- 1763 Apr, [facility] [place] [facility] [address] [id number] [place] [address]- 3860 Apr, [facility] [place] [facility] [address] [id number] [place] [address]- 9336 Apr, [facility] [place] [facility] [address] [id number] [place] [address]- 4480 Apr, [facility] [place] [facility] [address] [id number], [place] [address]- 6164 Apr, [facility] [place] [facility] [address] [id number], [place] [address]- 8148 Apr, [facility] [place] [facility] [address] [id number] [place] [address]- 8583 Apr, [facility] [place] [facility] [address] [id number] [place] [address]- 2258 10 Apr, 2014 [facility] [place] [facility] [address] [id number] [place] [address]- 5182 05 Apr, 2014 [facility] [place] [facility] [address] [id number] [place] [address]- 3943 Apr, [facility] [place] [facility] [address] [id number] [place] [address]- 0056 Mar, 2014 [facility] [place] [facility] [address] [id number] [place] [address]- 4316 Mar, 2014 [facility] [place] [facility] [address] [id number] [place] [address]- 8646 Mar, 2014 [facility] [place] [facility] [address] [id number] [place] [address]- 2446 Mar, 2014 [facility] [place] [facility] [address] [id number] [place] [address]- 7196 Mar, [facility] [place] [facility] [address] [facility] [id number] [place] [address]- 1625 Mar, [facility] [place] [facility] [address] [facility] [id number] [place] [address]- 1462 Feb, [facility] [place] [facility] [address] [id number] [place] [address]- 3895 Feb, [facility] [place] [facility] [address] [facility] [id number] [place] [address]- 3091 Feb, [facility] [place] [facility] [address] [facility] [id number] [place] [address]- 7513 Feb, [facility] [place] [facility] [address] [id number] [place] [address]- 6117 Jan, [facility] [place] [facility] [address] [id number] [place] [address]- 2549 Jan, [facility] [place] [facility] [address] [id number] [place] [address] 2546 Jan, [facility] [place] [facility] [address] [id number] [place] [address]- 2546 Jan, [facility] [place] [facility] [address] [facility] [id number] [place] [address]- 9251 Dec, [facility] [place] [facility] [address] [id number] [place] [address]- 1087 Dec, [facility] [place] [facility] [address] [id number] [place] [address]- 1711 Dec, [facility] [place] [facility] [address] [id number] [place] [address]- 5529 Dec, [facility] [place] [facility] [address] [id number] [place] [address]- 1558 Dec, [facility] [place] [facility] [address] [id number] [place] [address]- 6485 Dec, [facility] [place] [facility] [address] [id number] [place] [address]- 9193 Dec, [facility] [place] [facility] [address] [id number] [place] [address]- 2425 Dec, [facility] [place] [facility] [address] [id number] [place] [address]- 7169 Dec, [facility] [place] [facility] [address] [id number] [place] [address]- 0470 Dec, [facility] [place] [facility] [address] [id number] [place] [address]- 0014 Dec, [facility] [place] [facility] [address] [id number], [place] [address]- 4946 Nov, [facility] [place] [facility] [address] [id number], [place] [address]- 8649 Nov, [facility] [place] [facility] [address] [id number] [place] [address]- 8587 Nov, [facility] [place] [facility] [address] [id number], [place] [address]- 6262 Nov, [facility] [place] [facility] [address] [id number], [place] [address]- 1821 Nov, [facility] [place] [facility] [address] [id number] [place] [address]- 0653 15 Nov, 2013 [facility] [place] [facility] [address] [id number] [place] [address]- 8902 15 Nov, 2013 [facility] [place] [facility] [address] [id number] [place] [address]- 2645 15 Nov, 2013 [facility] [place] [facility] [address] [id number] [place] [address]- 2700 15 Nov, 2013 [facility] [place] [facility] [address] [id number] [place] [address]- 7026 14 Nov, 2013 [facility] [place] [facility] [address] [id number] [place] [address]- 9079 14 Nov, 2013 [facility] [place] [facility] [address] [id number] [place] [address]- 8931 14 Nov, 2013 [facility] [place] [facility] [address] [id number] [place] [address]- 6389 14 Nov, 2013 [facility] [place] [facility] [address] [id number] [place] [address]- 9033 13 Nov, 2013 [facility] [place] [facility] [address] [id number] [place] [address]- 7793 13 Nov, 2013 [facility] [place] [facility] [address] [id number] [place] [address]- 5613 11 Nov, 2013 [facility] [place] [facility] [address] [id number] [place] [address]- 4168 11 Nov, 2013 [facility] [place] [facility] [address] [id number], [place] [address]- 1889 07 Nov, 2013 [facility] [place] [facility] [address] [id number] [place] [address]- 7061 07 Nov, 2013 [facility] [place] [facility] [address] [id number] [place] [address]- 4854 07 Nov, 2013 [facility] [place] [facility] [address] [id number], [place] [address]- 6891 07 Nov, 2013 [facility] [place] [facility] [address] [id number] [place] [address]- 2549 30 Oct, 2013 [facility] [place] [facility] [address] [id number] [place] [address] 2549 30 Oct, 2013 [facility] [place] [facility] [address] [id number] [place] [address]- 2543 26 Oct, 2013 [facility] [place] [facility] [address] [id number] [place] [address]- 1923 26 Oct, 2013 [facility] [place] [facility] [address] [id number] [place] [address]- 5199 22 Oct, 2013 [facility] [place] [facility] [address] [id number] [place] [address]- 3065 22 Oct, 2013 [facility] [place] [facility] [address] [id number] [place] [address]- 6525 18 Oct, 2013 [facility] [place] [facility] [address] [id number] [place] [address]- 2479 18 Oct, 2013 [facility] [place] [facility] [address] [id number] [place] [address]- 4742 18 Oct, 2013 [facility] [place] [facility] [address] [id number] [place] [address]- 5361 18 Oct, 2013 [facility] [place] [facility] [address] [id number] [place] [address]- 2951 12 Oct, 2013 [facility] [place] [facility] [address] [id number] [place] [address]- 254 12 Oct, 2013 [facility] [place] [facility] [address] [id number] [place] [address]- 2547 Oct, 2013 [facility] [place] [facility] [address] [id number] [place] [address] Oct, 2013 [facility] [place] [facility] [address] [id number] [place] [address] Sep, [facility] [place] [facility] [address] [id number] [place] [address] Sep, [facility] [place] [facility] [address] [id number] [place] [address] Sep, [facility] [place] [facility] [address] [id number] [place] [address] Sep, [facility] [place] [facility] [address] [id number] [place] [address] Sep, [facility] [place] [facility] [address] [id number] [place] [address] Sep, [facility] [place] [facility] [address] [id number] [place] [address] Sep, [facility] [place] [facility] [address] [id number] [place] [address] Sep, [facility] [place] [facility] [address] [id number] [place] [address] Sep, [facility] [place] [facility] [address] [id number] [place] [address] Sep, [facility] [place] [facility] [address] [id number] [place] [address] Sep, [facility] [place] [facility] [address] [id number] [place] [address] Sep, [facility] [place] [facility] [address] [id number] [place] [address] Sep, [facility] [place] [facility] [address] [id number] [place] [address] Sep, [facility] [place] [facility] [address] [id number] [place] [address] Sep, [facility] [place] [facility] [address] [id number] [place] [address]- [address] Sep, [facility] [place] [facility] [address] [id number] [place] [address] Sep, [facility] [place] [facility] [address] [id number] [place] [address] Sep, [facility] [address] [id number] [place] [address] Aug, [facility] [place] [facility] [address] [id number] [place] [address] Aug, [facility] [place] [facility] [address] [id number] [place] [address] Aug, [facility] [place] [facility] [address] [id number] [place] [address] Aug, [facility] [place] [facility] [address] [id number] [place] [address]- [address] Aug, [facility] [place] [facility] [address] [id number] [place] [address] Aug, [facility] [place] [facility] [address] [id number] [place] [address] Jul, [facility] [place] [facility] [address] [id number] [place] [address] Jul, [facility] [place] [facility] [address] [id number] [place] [address] Jul, [facility] [address] [id number] [place] [address] Jul, [facility] [place] [facility] [address] [id number] [place] [address] June, [facility] [place] [facility] [address] [id number] [place] [address]- [address] June, [facility] [place] [facility] [address] [id number] [place] [address] June, [facility] [place] [facility] [address] [id number] [place] [address] June, [facility] [place] [facility] [address] [id number] [place] [address] June, [facility] [place] [facility] [address] [id number] [place] [address] June, [facility] [place] [facility] [address] [id number] [place] [address]- [address] June, [facility] [place] [facility] [address] [id number] [place] [address] May, [facility] [place] [facility] [address] [id number] [place] [address] May, [facility] [place] [facility] [address] [id number] [place] [address] May, [facility] [place] [facility] [address] [id number] [place] [address] May, [facility] [place] [facility] [address] [id number] [place] [address] May, [facility] [place] [facility] [address] [id number] [place] [address] May, [facility] [place] [facility] [address] [id number] [place] [address] Apr, [facility] [place] [facility] [address] [id number] [place] [address] 31 Apr, 2013 [facility] [place] [facility] [address] [id number] [place] [address] 28 Apr, 2013 [facility] [place] [facility] [address] [id number] [place] [address] 28 Apr, 2013 [facility] [place] [facility] [address] [id number] [place] [address]- [address] 14 Apr, 2013 [facility] [place] [facility] [address] [id number] [place] [address] 14 Apr, 2013 [facility] [place] [facility] [address] [id number] [place] [address] 12 Apr, 2013 [facility] [place] [facility] [address] [id number] [place] [address]- [address] Apr, [facility] [place] [facility] [address] [id number] [place] [address] Apr, [facility] [place] [facility] [address] [id number] [place] [address] Apr, [facility] [place] [facility] [address] [id number] [place] [address] 6[address] Apr, [facility] [place] [facility] [address] [id number] [place] [address] 0180 Apr, [facility] [place] [facility] [address] [id number] [place] [address] 3701 Apr, [facility] [place] [facility] [address] [id number] [place] [address] 6689 Apr, [facility] [place] [facility] [address] [id number] [place] [address] 6451 Mar, [facility] [place] [facility] [address] [id number] [place] [address] 5597 Mar, [facility] [place] [facility] [address] [id number] [place] [address] 4144 Mar, [facility] [place] [facility] [address] [facility] [id number] [place] [address]- 2879 Feb, [facility] [place] [facility] [address] [id number] [place] [address] 5593 Feb, [facility] [place] [facility] [address] [id number] [place] [address] 1842 Feb, [facility] [place] [facility] [address] [id number] [place] [address]- 0431 Feb, [facility] [place] [facility] [address] [id number] [place] [address]- 6635 Feb, [facility] [place] [facility] [address] [id number] [place] [address]- 1499 Feb, [facility] [place] [facility] [address] [id number] [place] [address] 8319 Feb, [facility] [address] [id number] [place] [address]- 4712 Feb, [facility] [place] [facility] [address] [id number] [place] [address]- 4860 Feb, [facility] [address] [id number] [place] [address] 3267 Feb, [facility] [address] [id number] [place] [address]- 8108 Jan, [facility] [place] [facility] [address] [id number] [place] [address] 7067 Jan, [facility] [address] [id number] [place] [address] 6071 Jan, [facility] [address] [id number] [place] [address] 4379 Jan, [facility] [address] [id number] [place] [address]- 1584 Jan, [facility] [address] [id number] [place] [address] 5107 Jan, [facility] [address] [id number] [place] [address] 7851 Jan, [facility] [place] [facility] [address] [id number] [place] [address]- 8085 Jan, [facility] [place] [facility] [address] [id number] [place] [address]- 5760 Jan, [facility] [place] [facility] [address] [id number] [place] [address]- 5744 Jan, [facility] [place] [facility] [address] [id number] [place] [address] 3945 17 Jan, 2013 [facility] [place] [facility] [address] [id number] [place] [address] 9350 17 Jan, 2013 [facility] [place] [facility] [address] [id number] [place] [address]- 6618 16 Jan, 2013 [facility] [place] [facility] [address] [id number] [place] [address]- 2566 Jan, [facility] [place] [facility] [address] [facility] [id number] [place] [address]- 3090 Jan, [facility] [place] [facility] [address] [id number] [place] [address]- 7092 Jan, [facility] [place] [facility] [address] [id number] [place] [address] Jan, [facility] [place] [facility] [address] [id number] [place] [address]- 1128 Jan, [facility] [place] [facility] [address] [id number] [place] [address]- 5928 Jan, [facility] [place] [facility] [address] [id number] [place] [address]- 1758 Jan, [facility] [place] [facility] [address] [id number] [place] [address]- 2795 Jan, [facility] [place] [facility] [address] [id number] [place] [address]- 2209 Dec, [facility] [place] [facility] [address] [id number], [place] [address]- 7380 Dec, [facility] [place] [facility] [address] [id number], [place] [address]- [address]377 Dec, [facility] [place] [facility] [address] [id number] [place] [address]- 8047 Dec, [facility] [place] [facility] [address] [facility] [id number], [place] [address]- [address]37 Dec, [facility] [place] [facility] [address] [facility] [id number], [place] [address]- 6681 Dec, [facility] [place] [facility] [address] [id number] [place] [address]- 8157 Dec, [facility] [address] [id number] [place] [address]- 6205 Dec, [facility] [place] [facility] [address] [id number] [place] [address]- 9273 Dec, [facility] [place] [facility] [address] [id number] [place] [address]- 4725 Dec, [facility] [place] [facility] [address] [id number] [place] [address]- 4008 Nov, [facility] [place] [facility] [address] [id number] [place] [address]- 8459 Nov, [facility] [place] [facility] [address] [id number] [place] [address]- 3638 Nov, [facility] [place] [facility] [address] [id number] [place] [address]- 5678 Nov, [facility] [place] [facility] [address] [id number] [place] [address]- 3100 Nov, [facility] [place] [facility] [address] [id number] [place] [address]- 4720 Nov, [facility] [place] [facility] [address] [id number] [place] [address]- 1794 Nov, [facility] [place] [facility] [address] [id number] [place] [address]- 7337 Nov, [facility] [place] [facility] [address] [id number] [place] [address]- 2294 10 Nov, 2012 [facility] [place] [facility] [address] [id number] [place] [address] Nov, [facility] [place] [facility] [address] [id number] [place] [address]- 2456 Oct, [facility] [place] [facility] [address] [id number] [place] [address]- 4597 Oct, [facility] [place] [facility] [address] [id number] [place] [address]- 1340 Oct, [facility] [place] [facility] [address] [id number] [place] [address]- 7060 Oct, [facility] [place] [facility] [address] [id number] [place] [address]- 5907 Oct, [facility] [place] [facility] [address] [id number] [place] [address] 2541 Sep, [facility] [address] [id number] [place] [address]- 5631 Sep, [facility] [place] [facility] [address] [id number] [place] [address]- 4498 Aug, [facility] [place] [facility] [address] [id number] [place] [address]- 5122 Aug, [facility] [address] [id number] [place] [address]- 0432 Aug, [facility] [place] [facility] [address] [id number] [place] [address]- 0808 Aug, [facility] [place] [facility] [address] [id number] [place] [address]- 2579 Aug, [facility] [place] [facility] [address] [id number] [place] [address]- 2057 Aug, [facility] [place] [facility] [address] [id number] [place] [address]- 5195 Aug, [facility] [place] [facility] [address] [id number] [place] [address]- 8671 Jul, [facility] [place] [facility] [address] [id number] [place] [address]- 7285 Jul, [facility] [place] [facility] [address] [id number] [place] [address]- 0694 June, [facility] [place] [facility] [address] [id number] [place] [address]- 3282 June, [facility] [address] [id number] [place] [address]- 7688 June, [facility] [address] [id number] [place] June, [facility] [address] [id number] [place] [address]- 7071 June, [facility] [address] [id number] [place] [address]- 9102 June, [facility] [address] [id number] [place] [address]- 4373 June, [facility] [address] [id number] [place] [address]- 3938 June, [facility] [address] [id number] [place] [address]- 5483 June, [facility] [address] [id number] [place] [address]- 8099 June, [facility] [address] [id number] [place] [address]- 7827 June, [facility] [address] [id number] [place] [address]- 5299 May, [facility] [address] [id number] [place] [address]- 0314 May, [facility] [place] [facility] [address] [id number] [place] [address]- 2806 May, [facility] [address] [id number] [place] [address] May, [facility] [place] [facility] [address] [id number] [place] [address]- 2771 Apr, [facility] [place] [facility] [address] [id number] [place] [address]- 5359 Apr, [facility] [place] [facility] [address] [id number] [place] [address]- 0436 Apr, [facility] [address] [id number] [place] [address]- 3666 Mar, [facility] [place] [facility] [address] [id number] [place] [address]- 2546 Mar, [facility] [address] [id number] [place] [address]- 2876 29 Feb, 2012 [facility] [place] [facility] [address] [id number] [place] [address]- 4317 Feb, [facility] [address] [id number] [place] [address]- 6196 Feb, [facility] [address] [id number] [place] [address]- 0806 Feb, [facility] [address] [id number] [place] [address]- 5390 16 Feb, 2012 [facility] [address] [id number] [place] [address]- 0205 14 Feb, 2012 [facility] [address] [id number] [place] [address]- 0701 Feb, [facility] [address] [id number] [place] [address]- 5367 31 Jan, 2012 [facility] [address] [id number] [place] [address]- 1646 31 Jan, 2012 [facility] [place] [facility] [address] [id number] [place] [address]- 1611 28 Jan, 2012 [facility] [place] [facility] [address] [id number] [place] [address]- 8816 17 Jan, 2012 [facility] [place] [facility] [address] [id number] [place] [address]- 4296 17 Jan, 2012 [facility] [place] [facility] [address] [id number] [place] [address]- 8688 Jan, [facility] [place] [facility] [address] [id number] [place] [address]- 2053 Jan, [facility] [place] [facility] [address] [id number] [place] [address]- 7021 Jan, [facility] [place] [facility] [address] [facility] [id number] [place] [address]- 6166 Jan, [facility] [place] [facility] [address] [id number] [place] 9512 Jan, [facility] [place] [facility] [address] [id number] [place] [address]- 0639 Jan, [facility] [place] [facility] [address] [id number] [place] [address]- 5523 Dec, [facility] [place] [facility] [address] [id number] [place] [address]- 3595 Dec, [facility] [place] [facility] [address] [id number] [place] [address]- 4398 Dec, [facility] [place] [facility] [address] [id number] [place] [address]- 6939 Dec, [facility] [place] [facility] [address] [facility] [id number] [place] [address]- 1442 Nov, [facility] [place] [facility] [address] [id number], [place] [address]- 0272 Nov, [facility] [place] [facility] [address] [id number], [place] [address]- 7627 Nov, [facility] [place] [facility] [address] [id number] [place] [address]- 2322 Oct, [facility] [place] [facility] [address] [id number], [place] [address]- 2399 24 Oct, 2011 [facility] [place] [facility] [address] [id number], [place] [address]- 3669 Oct, [facility] [place] [facility] [address] [id number] [place] [address]- 3360 10 Oct, 2011 [facility] [place] [facility] [address] [id number] [place] [address]- 8286 07 Oct, 2011 [facility] [place] [facility] [address] [id number] [place] [address] 2546 04 Oct, 2011 [facility] [place] [facility] [address] [id number] [place] [address] 2546 04 Oct, 2011 [facility] [place] [facility] [address] [id number] [place] [address] 2546 29 Sep, 2011 [facility] [place] [facility] [address] [id number] [place] [address]- 5866 Sep, [facility] [place] [facility] [address] [id number] [place] [address]- 4055 Sep, [facility] [place] [facility] [address] [id number] [place] [address]- 8434 Sep, [facility] [place] [facility] [address] [id number] [place] [address]- 9497 Sep, [facility] [place] [facility] [address] [id number] [place] [address]- 7174 30 Aug, 2011 [facility] [place] [facility] [address] [id number] [place] [address]- 3248 Aug, [facility] [place] [facility] [address] [id number] [place] [address] 2546 17 Aug, 2011 [facility] [place] [facility] [address] [id number] [place] [address] 2544 16 Aug, 2011 [facility] [place] [facility] [address] [id number] [place] [address]- 1626 13 Aug, 2011 [facility] [place] [facility] [address] [id number] [place] [address] 2546 Aug, [facility] [place] [facility] [address] [id number] [place] [address]- 7512 Aug, [facility] [place] [facility] [address] [id number] [place] [address]- 7146 Jul, [facility] [place] [facility] [address] [id number] [place] [address]- 9351 Jul, [facility] [place] [facility] [address] [id number] [place] [address]- 3545 Jul, [facility] [place] [facility] [address] [id number] [place] [address]- 5114 Jul, [facility] [place] [facility] [address] [id number] [place] [address]- 6582 Jul, [facility] [place] [facility] [address] [id number] [place] [address]- 0204 Jul, [facility] [place] [facility] [address] [id number] [place] [address]- 2843 Jul, [facility] [place] [facility] [address] [id number] [place] [address]- 5972 Jul, [facility] [place] [facility] [address] [id number] [place] [address]- 2551 Jul, [facility] [place] [facility] [address] [id number] [place] [address]- 0802 June, [facility] [place] [facility] [address] [id number] [place] [address]- 7514 June, [facility] [place] [facility] [address] [id number] [place] [address]- 8062 June, [facility] [place] [facility] [address] [id number] [place] [address]- 2682 June, [facility] [place] [facility] [address] [id number] [place] [address]- 0511 June, [facility] [place] [facility] [address] [id number] [place] [address]- 3544 June, [facility] [place] [facility] [address] [id number] [place] [address]- 2546 June, [facility] [place] [facility] [address] [id number] [place] [address]- 7800 June, [facility] [place] [facility] [address] [id number] [place] [address]- 5286 May, [facility] [place] [facility] [address] [id number] [place] [address]- 5466 May, [facility] [place] [facility] [address] [id number] [place] [address]- 8104 May, [facility] [place] [facility] [address] [id number] [place] [address]- 6991 May, [facility] [place] [facility] [address] [id number] [place] [address]- 3326 May, [facility] [place] [facility] [address] [id number] [place]76 May, [facility] [place] [facility] [address] [id number] [place] [address]- 6973 May, [facility] [place] [facility] [address] [id number] [place] [address]- 7889 Apr, [facility] [place] [facility] [address] [id number] [place] [address]- 7195 Apr, [facility] [place] [facility] [address] [id number] [place] [address]- 6177 Apr, [facility] [place] [facility] [address] [id number] [place] [address]- 5391 Apr, [facility] [place] [facility] [address] [id number] [place] [address]- 6540 Apr, [facility] [place] [facility] [address] [id number] [place] [address]- 5921 Apr, [facility] [place] [facility] [address] [id number] [place] [address]- 9732 Apr, [facility] [place] [facility] [address] [id number] [place] [address]- 6926 20 Mar, 2011 [facility] [place] [facility] [address] [id number] [place] [address]- 0926 20 Mar, 2011 [facility] [place] [facility] [address] [id number] [place] [address] 2546 14 Mar, 2011 [facility] [place] [facility] [address] [id number] [place] [address] 2546 13 Mar, 2011 [facility] [place] [facility] [address] [id number] [place] [address] 2546 Mar, [facility] [place] [facility] [address] [id number] [place] [address]- 2386 Mar, [facility] [place] [facility] [address] [id number] [place] [address]- 5116 Mar, [facility] [place] [facility] [address] [id number] [place] [address]- 3302 Feb, [facility] [place] [facility] [address] [id number] [place] [address]- 7340 Feb, [facility] [place] [facility] [address] [id number] [place] [address]- 3310 Feb, [facility] [place] [facility] [address] [id number] [place] [address]- 8582 Feb, [facility] [place] [facility] [address] [id number] [place] [address]- 4466 Feb, [facility] [place] [facility] [address] [id number] [place] [address]- 1672 Feb, [facility] [place] [facility] [address] [id number] [place] [address]- 4476 Feb, [facility] [place] [facility] [address] [id number] [place] [address] Feb, [facility] [place] [facility] [address] [id number] [place] [address] Feb, [facility] [address] [id number] [place] [address] Feb, [facility] [place] [facility] [address] [id number] [place] [address] Jan, [facility] [place] [facility] [address] [id number] [place] [address] Jan, [facility] [place] [facility] [address] [id number] [place] [address] Jan, [facility] [place] [facility] [address] [id number] [place] [address] Jan, [facility] [place] [facility] [address] [id number] [place] [address] Jan, [facility] [place] [facility] [address] [id number] [place] [address] Jan, [facility] [place] [facility] [address] [id number] [place] [address] Jan, [facility] [place] [facility] [address] [id number] [place] [address] Jan, [facility] [place] [facility] [address] [id number] [place] [address] Jan, [facility] [place] [facility] [address] [id number] [place] [address] Jan, [facility] [place] [facility] [address] [id number] [place] [address] Jan, [facility] [place] [facility] [address] [id number] [place] [address] Dec, [facility] [place] [facility] [address] [id number] [place] [address] Dec, [facility] [place] [facility] [address] [id number] [place] [address] Dec, [facility] [place] [facility] [address] [id number] [place] [address] 16 Dec, 2010 [facility] [address] [id number] [place] [address] 14 Dec, 2010 [facility] [place] [facility] [address] [id number] [place] [address] 09 Dec, 2010 [facility] [place] [facility] [address] [id number] [place] [address] 08 Dec, 2010 [facility] [place] [facility] [address] [id number] [place] [address] 07 Dec, 2010 [facility] [place] [facility] [address] [id number] [place] [address] Dec, [facility] [place] [facility] [address] [id number] [place] [address] Nov, [facility] [place] [facility] [address] [id number] [place] [address] Nov, [facility] [place] [facility] [address] [id number] [place] [address] 27 Nov, 2010 [facility] [place] [facility] [address] [id number] [place] [address] 24 Nov, 2010 [facility] [place] [facility] [address] [id number] [place] [address]- [address] 24 Nov, 2010 [facility] [place] [facility] [address] [id number] [place] [address] 13 Nov, 2010 [facility] [place] [facility] [address] [id number] [place] [address] Aug, [facility] [place] [facility] [address] [id number] [place] [address] 14 Feb, 2010 [facility] [place] [facility] [address] [id number] [place] [address] 14 Jan, 2010 [facility] [place] [facility] [address] [id number] [place] [address] Jan, [facility] [place] [address] [id number] [address] Jan, [facility] [place] [address] [facility] [id number], [place] [address] Jan, [facility] [place] [address] [id number], [place] [address] Jan, [facility] [place] [address] [facility] [id number], [place] [address] Dec, [facility] [place] [address] [facility] [id number], [place] [address] Dec, [facility] [place] [address] [facility] [id number], [place] [address] Dec, [facility] [place] [id number], [place] [address] Dec, [facility] [place] [id number], [place] [address] Nov, [facility] [place] [address] [id number], [place] [address] Nov, [facility] [place] [address] [id number], [place] [address] Nov, IMMUNIZATIONS No Known Immunizations SOCIAL HISTORY Never Assessed REASON FOR VISIT PLAN OF CARE VITAL SIGNS MEDICATIONS Medication Instructions Dosage Frequency Start Date End Date Duration Status Abilify 2 MG Orally Once a day 2 tablets 24h 30 days Active RESULTS No Results PROCEDURES [...]
--- OUTSIDE RECORDS SUMMARY | 2018-01-13 20:52 | XMS REPORT ---
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 Active 785676385 Problem Hypertension I10 Active 60278040 Problem Arthritis M19.90 Active 6503678 Problem 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 Active 78629734 Problem Anxiety F41.9 Active 15948383 Problem Unspecified episodic mood disorder F39 Active 81504899 Problem Left hip pain M25.552 Active 27695757 ALLERGIES No Information ENCOUNTERS Encounter Location Date Diagnosis [facility] [address] [facility] [id number] [address] [address] Sep, Unspecified episodic mood disorder F39 [facility] [address] [facility] [id number] [address] Aug, [facility] [address] [id number] [id number] Aug, [facility] [address] [address] Aug, Arthritis M19.90 [facility] [address] [address] Aug, [facility] [address] [address] Aug, Obesity (BMI 30.0-34.9) E66.9 ; Unspecified episodic mood disorder F39 and Hypertension I10 [facility] [address] [address] Aug, Unspecified episodic mood disorder F39 [facility] [id number] [place] [address] 26003- 4347 Aug, [facility] [id number] [place] [address] 88830- 1613 Jul, Unspecified episodic mood disorder F39 [facility] [address] [address] Jul, [facility] [id number] [place] [address] 74807- 0663 Jul, Arthritis M19.90 [facility] [address] [address] Jul, Left hip pain M25.552 ; Hypertension I10 ; Other obesity due to excess calories E66.09 and Body mass index (BMI) of 34.0-34.9 in adult Z68.34 [facility] [address] [address] Jul, Unspecified episodic mood disorder F39 [facility] [address] [address] June, Gastroesophageal reflux disease, esophagitis presence not specified K21.9 [facility] [id number] [place] [address] 85511- 4631 June, [facility] [address] [address] June, [facility] [address] [address] 7[address] June, Arthritis M19.90 [facility] [address] [address] June, [facility] [id number] [place] [address] 27752- 6313 June, [facility] [address] [address] 112[address] June, Unspecified episodic mood disorder F39 [facility] [address] [address] May, Unspecified episodic mood disorder F39 [facility] [id number] [place] [address] 43614- 0791 May, [facility] [id number] [place] [address] 01401- 7349 May, Arthritis M19.90 [facility] [id number] [place] [address] 31402 -9174 May, Dysuria R30.0 ; Abscess L02.91 and Acute cystitis without hematuria N30.00 [facility] [address] [address] 455[address] May, 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 ; Unspecified episodic mood disorder F39 ; Combined drug dependence excluding opioids, 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 ; Anxiety F41.9 and Other psychoactive substance dependence, 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 [facility] [address] [address] May, [facility] [address] [address] May, 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 ; Unspecified episodic mood disorder F39 ; Combined drug dependence excluding opioids, 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 ; Other psychoactive substance dependence, 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 and Anxiety F41.9 [facility] [address] 67[address]- 12[address] May, Other chronic pain G89.29 ; Left hip pain M25.552 ; Hypertension I10 ; 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, 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 and Unspecified episodic mood disorder F39 [facility] [address] [address]75- 4036 Apr, [facility] [address] 49063 -1113 Apr, Neck pain M54.2 ; Left hip pain M25.552 and Fall, initial encounter W19.XXXA [facility] [address] 15858- 4434 Apr, Unspecified episodic mood disorder F39 ; Combined drug dependence excluding opioids, 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 ; Anxiety F41.9 ; Other psychoactive substance dependence, 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 and 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 [facility] [address] 8[address]- 8169 Apr, [facility] [address] 22095- 5485 Apr, Arthritis M19.90 and Unspecified episodic mood disorder F39 [facility] [id number] [place] [address] 06453- 4502 Apr, Unspecified episodic mood disorder F39 [facility] [id number] [place] [address] 40910- 2881 Apr, [facility] [address] 46965- 4570 Apr, [facility] [id number] [place] [address] 76339- 8713 Apr, Unspecified episodic mood disorder F39 ; Combined drug dependence excluding opioids, 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 ; Anxiety F41.9 ; Other psychoactive substance dependence, 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 and 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 [facility] [id number] [place] [address] 06037- 9606 Mar, Unspecified episodic mood disorder F39 [facility] [id number] [place] [address] 21443- 1926 Mar, Gastroesophageal reflux disease, esophagitis presence not specified K21.9 [facility] [id number] [place] [address] 34995 2546 Mar, Arthritis M19.90 and Unspecified episodic mood disorder F39 [facility] [id number] [place] [address] 70113- 2476 Feb, [facility] [address] 18110- 8346 Feb, [facility] [id number] [place] [address] 88142 2546 Feb, [facility] [id number] [place] [address] 42550 2546 Feb, Arthritis M19.90 [facility] [id number] [place] [address] 84084 2546 Feb, Non-pressure chronic ulcer of right calf, 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 ; Unspecified episodic mood disorder F39 and Left hip pain M25.552 [facility] [id number] [place] [address] 95129 2546 Feb, [facility] [id number] [place] [address] 30683 2546 Feb, [facility] [id number] [place] [address] 38423 2546 Jan, Arthritis M19.90 [facility] [id number] [place] [address] [id number]- 3010 Jan, Left hip pain M25.552 and Non-pressure chronic ulcer of right calf, 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 [facility] [address] 95474- 3881 Jan, Chronic hepatitis C without hepatic coma B18.2 [facility] [address] 27675- 3763 Jan, Encounter for immunization Z23 ; Venous insufficiency ( chronic) (peripheral) I87.2 ; Non-pressure chronic ulcer of unspecified calf limited to breakdown of skin L97.201 and Gastroesophageal reflux disease, esophagitis presence not specified K21.9 [place] [address] 48072- 0113 Jan, [place] [address] 85699- 4068 Jan, Chronic hepatitis C without hepatic coma B18.2 and Encounter for immunization Z23 [facility] [address] 74010- 3843 Jan, Arthritis M19.90 [facility] [address] 70466- 4944 Jan, [facility] [id number] [place] [address] 44893- 9475 Dec, [facility] [id number] [place] [address] 18198- 2537 Dec, Unspecified episodic mood disorder F39 [facility] [id number] [place] [address] 06899- 8565 Dec, Arthritis M19.90 [facility] [address] 21858- 8334 Dec, Arthritis M19.90 [facility] [id number] [place] [address] 51580- 7639 Nov, [facility] [address] 27671- 8822 Nov, [facility] [id number] [place] [address] 25201- 4145 Nov, Other psychoactive substance dependence, 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 ; 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, 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 and Chronic hepatitis C without hepatic coma B18.2 [facility] [id number] [place] [address] 97647- 4820 Nov, Arthritis M19.90 [facility] [id number] [place] [address] 34106 -8797 Oct, Partial thickness burn of abdomen, initial encounter T21.22XA [facility] [id number] [place] [address] 70351- 0184 Oct, [facility] [id number] [place] [address] 03024- 6715 Sep, Arthritis M19.90 [facility] [id number] [place] [address] 99605- 0198 Sep, [facility] [id number] [place] [address] 12819- 8385 Sep, [facility] [id number] [place] [address] 53758- 7847 Sep, Unspecified episodic mood disorder F39 ; Chronic hepatitis C without hepatic coma B18.2 and Left hip pain M25.552 [facility] [id number] [place] [address] 71448- 9476 Sep, Arthritis M19.90 and Left hip pain M25.552 [facility] [id number] [place] [address] 27448- 7155 Aug, [facility] [id number] [place] [address] 69729- 9883 Aug, [facility] [id number] [place] [address] 97733- 4011 Aug, Chronic hepatitis C without hepatic coma B18.2 [facility] [address] [address]- 0397 Aug, [facility] [id number] [place] [address] 75434- 5781 Aug, Chronic hepatitis C without hepatic coma B18.2 [facility] [id number] [place] [address] 26743- 4848 Aug, 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, 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 [facility] [id number] [place] [address] 23346- 7233 Aug, [facility] [id number] [place] [address] 74835- 7671 Aug, Chronic hepatitis C without hepatic coma B18.2 and Hypertension I10 [facility] [id number] [place] [address] 73930- 4789 Jul, [facility] [id number] [place] [address] 64169- 5964 June, [facility] [id number] [place] [address] 57921- 1333 Apr, Fibromyalgia M79.7 ; Left hip pain M25.552 and Decubitus ulcer of sacral region, stage 1 L89.151 [facility] [id number] [place] [address] 06959- 7627 Apr, [facility] [id number] [place] [address] 04544- 4080 Apr, [facility] [id number] [place] [address] 99123- 2461 Feb, [facility] [id number] [place] [address] 63182- 4541 Dec, Anxiety F41.9 ; Combined drug dependence excluding opioids, 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 and Unspecified episodic mood disorder F39 [facility] [address], [place] [address]- 2346 Dec, [facility] [id number] [place] [address] 60377- 2998 Nov, [facility] [id number] [place] [address] 36318- 9441 Nov, [facility] [id number] [place] [address] 96391- 7000 Nov, 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 and Anxiety F41.9 [facility] [id number] [place] [address] 30812- 8055 Oct, [facility] [id number] [place] [address] 25943 -3569 14 Oct, 2015 Open wound of left thigh, initial encounter S71.102A [facility] [id number] [place] [address] 92349- 9783 Oct, [facility] [id number] [place] [address] 96441- 3644 Sep, Unspecified episodic mood disorder F39 ; Other disorder of impulse control 312.39 ; Combined drug dependence excluding opioids, 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 and Anxiety F41.9 [facility] [id number] [place] [address] 30836- 9623 Sep, Other disorder of impulse control 312.39 ; Combined drug dependence excluding opioids, 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 ; Anxiety F41.9 and Unspecified episodic mood disorder F39 [facility] [id number] [place] [address] 72848- 2574 Sep, Other chronic pain G89.29 [facility] [id number] [place] [address] 17161- 3179 Sep, [facility] [id number] [place] [address] 75424- 8604 Sep, [facility] [id number] [place] [address] 91628- 4529 Aug, [facility] [address], [place] [address]- 9373 Aug, [facility] [id number] [place] [address] 92454- 1870 Aug, [facility] [id number] [place] [address] 67542- 7083 Jul, [facility] [id number] [place] [address] 10893- 5241 Jul, [facility] [id number] [place] [address] 17544- 9509 Jul, [facility] [id number] [place] [address] 31933- 9325 Jul, Arthritis M19.90 ; Chronic hepatitis C without hepatic coma B18.2 and Left hip pain M25.552 [facility] [id number] [place] [address] 99116- 3527 Jul, Left knee pain M25.562 [facility] [id number] [place] [address] 81415- 3942 Jul, Combined drug dependence excluding opioids, 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 ; Anxiety F41.9 ; Other disorder of impulse control 312.39 and Unspecified episodic mood disorder F39 [facility] [id number] [place] [address] 59461- 9433 Jul, Left knee pain M25.562 [facility] [id number] [place] [address] 43170- 3191 Jul, Left knee pain M25.562 and Left hip pain M25.552 [facility] [id number] [place] [address] 11438- 8375 Jul, [facility] [id number] [place] [address] 06111- 9805 June, [facility] [id number] [place] [address] 95779- 3774 June, Combinations of drug dependence excluding opioid type drug, unspecified abuse 304.80 ; Other disorder of impulse control 312.39 ; Unspecified episodic mood disorder F39 and Anxiety F41.9 [facility] [id number] [place] [address] 66788- 6706 June, Other fatigue R53.83 ; Headache R51 and Left knee pain M25.562 [facility] [id number] [place] [address] 29991- 0078 June, Unspecified episodic mood disorder F39 ; Combinations of drug dependence excluding opioid type drug, unspecified abuse 304.80 ; Other disorder of impulse control 312.39 and Anxiety F41.9 [facility] [id number] [place] [address] 20084- 7339 June, Anxiety F41.9 [place] [id number] [place] [address] 24082- 3016 June, Pain in left knee M25.562 [place] [id number] [place] [address] 65887- 7624 June, Anxiety F41.9 and Combinations of drug dependence excluding opioid type drug, unspecified abuse 304.80 [facility] [id number] [place] [address] 94631- 3308 June, Unspecified episodic mood disorder 296.90 ; Combinations of drug dependence excluding opioid type drug, unspecified abuse 304.80 and Other disorder of impulse control 312.39 [facility] [id number] [place] [address] 25341- 2818 June, Anxiety F41.9 and Unspecified episodic mood disorder 296.90 [place] [id number] [place] [address] 91833- 5100 May, Arthritis M19.90 [facility] [id number] [place] [address] 54900- 2073 May, Arthritis M19.90 [facility] [address], [place] [address]- 4266 18 May, 2015 Anxiety F41.9 ; Combinations of drug dependence excluding opioid type drug, unspecified abuse 304.80 and Other disorder of impulse control 312.39 [facility] [address], [place] [address]- 0882 18 May, 2015 Left knee pain M25.562 [facility] [id number] [place] [address] 34719- 2183 14 May, 2015 Arthritis M19.90 [facility] [id number] [place] [address] 77768- 1289 13 May, 2015 [facility] [id number] [place] [address] 06742- 7239 May, Anxiety F41.9 ; Unspecified episodic mood disorder 296.90 ; Combinations of drug dependence excluding opioid type drug, unspecified abuse 304.80 and Other disorder of impulse control 312.39 [facility] [address] [address]- 4164 11 May, 2015 Left knee pain M25.562 [place] [id number] [place] [address] 85690- 3240 11 May, 2015 Left knee pain M25.562 ; Combinations of drug dependence excluding opioid type drug, unspecified abuse 304.80 ; Other disorder of impulse control 312.39 ; Fibromyalgia M79.7 ; Hypertension I10 ; Unspecified episodic mood disorder 296.90 and Left hip pain M25.552 [facility] [address] [address]- 3488 11 May, 2015 Unspecified episodic mood disorder 296.90 ; Other disorder of impulse control 312.39 ; Combinations of drug dependence excluding opioid type drug, unspecified abuse 304.80 and Anxiety F41.9 [facility] [address] [address]- 4989 06 May, 2015 Left knee pain M25.562 ; Combinations of drug dependence excluding opioid type drug, unspecified abuse 304.80 ; Other disorder of impulse control 312.39 ; Fibromyalgia M79.7 ; Hypertension I10 ; Unspecified episodic mood disorder 296.90 and Left hip pain M25.552 [place] [id number] [place] [address] 51261- 9292 May, Anxiety F41.9 ; Unspecified episodic mood disorder 296.90 ; Other disorder of impulse control 312.39 and Combinations of drug dependence excluding opioid type drug, unspecified abuse 304.80 [place] [id number] [place] [address] 43374- 7275 30 Apr, 2015 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 and 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, implants and grafts, initial encounter T84.82XA [place] [id number] [place] [address] 32075- 8466 Apr, Anxiety F41.9 ; Unspecified episodic mood disorder 296.90 ; Combinations of drug dependence excluding opioid type drug, unspecified abuse 304.80 and Other disorder of impulse control 312.39 [place] [id number] [place] [address] 36710- 1011 Apr, Arthritis M19.90 [place] [place] [id number] [place] [address] 73673- 1188 Apr, Anxiety F41.9 ; Unspecified episodic mood disorder 296.90 ; Combinations of drug dependence excluding opioid type drug, unspecified abuse 304.80 and Other disorder of impulse control 312.39 [place] [place] [id number] [place] [address] 18075- 3402 Apr, Arthritis M19.90 [place] [place] [id number] [place] [address] 91155- 6908 Apr, [place] [id number] [place] [address] 41009- 1798 Apr, [facility] [id number] [place] [address] 25766- 9934 14 Apr, 2015 Unspecified episodic mood disorder 296.90 ; Combinations of drug dependence excluding opioid type drug, unspecified abuse 304.80 ; Other disorder of impulse control 312.39 and Anxiety F41.9 [facility] [id number] [place] [address] 00978 -8069 Apr, Left knee pain M25.562 [facility] [id number] [place] [address] 47039- 0104 Apr, [facility] [id number] [place] [address] 51049- 2205 Mar, Unspecified episodic mood disorder 296.90 ; Anxiety F41.9 ; Other disorder of impulse control 312.39 and Combinations of drug dependence excluding opioid type drug, unspecified abuse 304.80 [facility] [id number] [place] [address] 47855- 8137 Mar, Hyperpigmentation L81.9 [facility] [id number] [place] [address] 40373- 7111 Mar, Arthritis M19.90 and Anxiety F41.9 [facility] [id number] [place] [address] 27729- 1896 Mar, Unspecified episodic mood disorder F39 ; Combined drug dependence excluding opioids, 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 ; 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 and Anxiety F41.9 [facility] [id number] [place] [address] 07915- 0211 12 Mar, 2015 Well woman exam Z01.419 ; Other fatigue R53.83 ; Hot flashes N95.1 ; Depression, unspecified depression type F32.9 and Body mass index (BMI) of 23.0-23.9 in adult Z68.23 [place] [id number] [place] [address] 37889- 0902 11 Mar, 2015 Unspecified episodic mood disorder 296.90 ; Other disorder of impulse control 312.39 and Anxiety F41.9 [facility] [id number] [place] [address] 21421- 3686 Mar, Well woman exam Z01.419 ; Encounter [...] of breast Z12.39 and Limited mobility Z74.[address] [address]- 5734 Mar, [address] 00105- 1506 Mar, [address] 53564- 9083 Mar, [address] 8[address]51- 0100 Mar, Other specified complication of internal orthopedic prosthetic devices, implants and grafts, initial encounter T84.89XA ; Fibromyalgia M79.7 ; Hypertension I10 ; Anemia D64.9 ; Insomnia G47.00 ; Anxiety F41.9 ; Arthritis M19.90 and Migraine G43.909 [address] [address]- [address]442 Mar, [address] [address]- 1840 Feb, [address] [address]- 6017 Feb, Arthritis M19.90 and Anxiety F41.[address] 32384- 9306 Feb, [facility] [address] [facility] [id number] [place] [address]- 5986 Feb, [facility] [id number] [place] [address]- 6491 Feb, [facility] [id number] [place] [address]- 0352 Feb, [facility] [id number] [place] [address], [place] [address]- 4509 Feb, Anxiety F41.9 [facility] [id number] [place] [address], [place] [address]- 3645 Feb, [facility] [id number] [place] [address], [place] [address]- 8854 Feb, [facility] [id number] [address]- 2563 Feb, 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 and Fibromyalgia M79.7 [facility] [id number] [address]- 2974 Feb, [facility] [id number] [place] [address], [place] [address]- 4318 Jan, [facility] [id number] [address] 8812 Jan, [facility] [id number] [address]- 7992 Jan, [facility] [id number] [address]- 3854 24 Jan, 2015 [facility] [id number] [address]- 4172 16 Jan, 2015 [facility] [id number] [address]- 254 08 Jan, 2015 [facility] [address] [id number] [address] 1559 Jan, [facility] [id number] [address]- 6881 Jan, [facility] [id number] [place] [address] 19513- 0754 Dec, [facility] [id number] [place] [address] 36631- 3157 Dec, Left knee pain M25.562 [facility] [id number] [place] [address] 950139- 0036 Dec, Left knee pain M25.562 [facility] [id number] [place] [address] 47038- 4434 Dec, Fibromyalgia M79.7 ; Hypertension I10 and Arthritis M19.90 [facility] [id number] [place] [address] 20058- 0364 Dec, [facility] [id number] [place] [address] 45062- 6129 Dec, [facility] [id number] [place] [address] 95627- 2918 Dec, [facility] [id number] [place] [address] 86776- 1631 Dec, [facility] [id number] [place] [address] 39728- 5984 Nov, [facility] [id number] [place] [address] 20467- 6472 Nov, [facility] [id number] [place] [address] 42410- 5825 Nov, [facility] [id number] [place] [address] 29963- 2676 Nov, Hypertension I10 [facility] [id number] [place] [address] 05609- 1497 Oct, [facility] [id number] [place] [address] 98856- 9053 17 Oct, 2014 [facility] [place] [facility] [address] [id number] [address]- 7403 Oct, [facility] [place] [facility] [address] [id number], [place] [address]- 5867 Oct, [facility] [place] [facility] [address] [facility] [id number] [address]- 7191 Oct, [facility] [place] [facility] [address] [facility] [id number] [address]- 7918 Sep, [facility] [place] [facility] [address] [facility] [id number] [place] [address] 82729- 8586 Sep, [facility] [place] [facility] [address] [id number] [address]- 1368 Sep, Hip pain associated with recalled total hip arthroplasty hardware 996.77 [facility] [place] [facility] [address] [id number] [address]- 6132 Sep, [facility] [place] [facility] [address] [id number] [address]- 3024 Sep, [facility] [place] [facility] [address] [id number] [address]- 2060 Sep, [facility] [place] [facility] [address] [id number] [address]- 7346 Aug, [facility] [place] [facility] [address] [id number] [address]- 2324 Jul, [facility] [place] [facility] [address] [facility] [id number] [address]- 3553 June, [facility] [place] [facility] [address] [facility] [id number][place] [address]- 7510 June, [facility] [place] [facility] [address] [facility] [id number][place] [address]- 3237 June, [facility] [place] [facility] [address] [facility] [id number], [place] [address]- 0272 June, [facility] [place] [facility] [address] [id number] [place] [address]- 8534 June, [facility] [place] [facility] [address] [id number] [place] [address]- 7416 June, [facility] [place] [facility] [address] [id number] [place] [address]- 4792 May, [facility] [place] [facility] [address] [id number] [place] [address]- 5544 May, [facility] [place] [facility] [address] [id number] [place] [address]- 4347 May, [facility] [place] [facility] [address] [id number] [place] [address]- 8456 Apr, [facility] [place] [facility] [address] [id number] [place] [address]- 4305 Apr, [facility] [place] [facility] [address] [id number] [place] [address]- 9606 Apr, [facility] [place] [facility] [address] [id number] [place] [address]- 2519 Apr, [facility] [place] [facility] [address] [id number] [place] [address]- 7796 Apr, [facility] [place] [facility] [address] [id number], [place] [address]- 3206 Apr, [facility] [place] [facility] [address] [id number][place] [address]- 9937 Apr, [facility] [place] [facility] [address] [id number] [place] [address]- 4659 Apr, [facility] [place] [facility] [address] [id number] [place] [address]- 4681 10 Apr, 2014 [facility] [place] [facility] [address] [id number] [place] [address]- 5567 05 Apr, 2014 [facility] [place] [facility] [address] [id number] [place] [address]- 9087 Apr, [facility] [place] [facility] [address] [id number] [place] [address]- 4616 Mar, 2014 [facility] [place] [facility] [address] [id number] [place] [address]- 7946 Mar, 2014 [facility] [place] [facility] [address] [id number] [place] [address]- 6746 Mar, 2014 [facility] [place] [facility] [address] [id number] [place] [address]- 5456 Mar, 2014 [facility] [place] [facility] [address] [id number] [place] [address]- 9036 Mar, [facility] [place] [facility] [address] [facility] [id number] [place] [address]- 5147 Mar, [facility] [place] [facility] [address] [facility] [id number] [place] [address]- 6206 Feb, [facility] [place] [facility] [address] [id number] [place] [address]- 1504 Feb, [facility] [place] [facility] [address] [facility] [id number] [place] [address]- 4263 Feb, [facility] [place] [facility] [address] [facility] [id number] [place] [address]- 8316 Feb, [facility] [place] [facility] [address] [id number] [place] [address]- 6464 Jan, [facility] [place] [facility] [address] [id number] [place] [address]- 2549 Jan, [facility] [place] [facility] [address] [id number] [place] [address] 2546 Jan, [facility] [place] [facility] [address] [id number] [place] [address]- 2546 Jan, [facility] [place] [facility] [address] [facility] [id number] [place] [address]- 4446 Dec, [facility] [place] [facility] [address] [id number] [place] [address]- 0533 Dec, [facility] [place] [facility] [address] [id number] [place] [address]- 8614 Dec, [facility] [place] [facility] [address] [id number] [place] [address]- 4122 Dec, [facility] [place] [facility] [address] [id number] [place] [address]- 3435 Dec, [facility] [place] [facility] [address] [id number] [place] [address]- 3840 Dec, [facility] [place] [facility] [address] [id number] [place] [address]- 6585 Dec, [facility] [place] [facility] [address] [id number] [place] [address]- 8528 Dec, [facility] [place] [facility] [address] [id number] [place] [address]- 5409 Dec, [facility] [place] [facility] [address] [id number] [place] [address]- 3962 Dec, [facility] [place] [facility] [address] [id number] [place] [address]- 0475 Dec, [facility] [place] [facility] [address] [id number], [place] [address]- 5099 Nov, [facility] [place] [facility] [address] [id number], [place] [address]- 7513 Nov, [facility] [place] [facility] [address] [id number] [place] [address]- 4376 Nov, [facility] [place] [facility] [address] [id number], [place] [address]- 6373 Nov, [facility] [place] [facility] [address] [id number], [place] [address]- 0976 Nov, [facility] [place] [facility] [address] [id number] [place] [address]- 3502 15 Nov, 2013 [facility] [place] [facility] [address] [id number] [place] [address]- 0063 15 Nov, 2013 [facility] [place] [facility] [address] [id number] [place] [address]- 3715 15 Nov, 2013 [facility] [place] [facility] [address] [id number] [place] [address]- 3997 15 Nov, 2013 [facility] [place] [facility] [address] [id number] [place] [address]- 9874 14 Nov, 2013 [facility] [place] [facility] [address] [id number] [place] [address]- 5016 14 Nov, 2013 [facility] [place] [facility] [address] [id number] [place] [address]- 7848 14 Nov, 2013 [facility] [place] [facility] [address] [id number] [place] [address]- 4029 14 Nov, 2013 [facility] [place] [facility] [address] [id number] [place] [address]- 5132 13 Nov, 2013 [facility] [place] [facility] [address] [id number] [place] [address]- 0686 13 Nov, 2013 [facility] [place] [facility] [address] [id number] [place] [address]- 1011 11 Nov, 2013 [facility] [place] [facility] [address] [id number] [place] [address]- 4576 11 Nov, 2013 [facility] [place] [facility] [address] [id number] [address]- 3147 07 Nov, 2013 [facility] [place] [facility] [address] [id number] [place] [address]- 2909 07 Nov, 2013 [facility] [place] [facility] [address] [id number] [place] [address]- 2214 07 Nov, 2013 [facility] [place] [facility] [address] [id number], [place] [address]- 5858 07 Nov, 2013 [facility] [place] [facility] [address] [id number] [place] [address]- 2547 30 Oct, 2013 [facility] [place] [facility] [address] [id number] [place] [address] 2547 30 Oct, 2013 [facility] [place] [facility] [address] [id number] [place] [address]- 2549 26 Oct, 2013 [facility] [place] [facility] [address] [id number] [place] [address]- 3676 26 Oct, 2013 [facility] [place] [facility] [address] [id number] [place] [address]- 1423 22 Oct, 2013 [facility] [place] [facility] [address] [id number] [place] [address]- 6132 22 Oct, 2013 [facility] [place] [facility] [address] [id number] [place] [address]- 5623 18 Oct, 2013 [facility] [place] [facility] [address] [id number] [place] [address]- 9532 18 Oct, 2013 [facility] [place] [facility] [address] [id number] [place] [address]- 3580 18 Oct, 2013 [facility] [place] [facility] [address] [id number] [place] [address]- 4336 18 Oct, 2013 [facility] [place] [facility] [address] [id number] [place] [address]- 6860 12 Oct, 2013 [facility] [place] [facility] [address] [id number] [place] [address]- 2543 12 Oct, 2013 [facility] [place] [facility] [address] [id number] [place] [address]- 2542 Oct, 2013 [facility] [place] [facility] [address] [id number] [place] [address]- 2549 Oct, 2013 [facility] [place] [facility] [address] [id number] [place] [address]- 4108 Sep, [facility] [place] [facility] [address] [id number] [place] [address]- 3705 Sep, [facility] [place] [facility] [address] [id number] [place] [address]- 2807 Sep, [facility] [place] [facility] [address] [id number] [place] [address]- 5756 Sep, [facility] [place] [facility] [address] [id number] [place] [address]- 1738 Sep, [facility] [place] [facility] [address] [id number] [place] [address]- 1913 Sep, [facility] [place] [facility] [address] [id number] [place] [address]- 7905 Sep, [facility] [place] [facility] [address] [id number] [place] [address]- 5767 Sep, [facility] [place] [facility] [address] [id number] [place] [address]- 8506 Sep, [facility] [place] [facility] [address] [id number] [place] [address]- 7514 Sep, [facility] [place] [facility] [address] [id number] [place] [address]- 6897 Sep, [facility] [place] [facility] [address] [id number] [place] [address]- 0198 Sep, [facility] [place] [facility] [address] [id number] [place] [address]- 6672 Sep, [facility] [place] [facility] [address] [id number] [place] [address]- 1389 Sep, [facility] [place] [facility] [address] [id number] [place] [address]- 8720 Sep, [facility] [place] [facility] [address] [id number] [place] [address]- 7247 Sep, [facility] [place] [facility] [address] [id number] [place] [address]- 1533 Sep, [facility] [place] [facility] [address] [id number] [place] [address]- 8371 Sep, [facility] [address] [id number] [place] [address]- 0136 Aug, [facility] [place] [facility] [address] [id number] [place] [address]- 1730 Aug, [facility] [place] [facility] [address] [id number] [place] [address]- 1449 Aug, [facility] [place] [facility] [address] [id number] [place] [address]- 2744 Aug, [facility] [place] [facility] [address] [id number] [place] [address]- 1316 Aug, [facility] [place] [facility] [address] [id number] [place] [address]- 8606 Aug, [facility] [place] [facility] [address] [id number] [place] [address]- 1763 Jul, [facility] [place] [facility] [address] [id number] [place] [address]- 5409 Jul, [facility] [place] [facility] [address] [id number] [place] [address]- 5766 Jul, [facility] [address] [id number] [place] [address]- 9652 Jul, [facility] [place] [facility] [address] [id number] [place] [address]- 0077 June, [facility] [place] [facility] [address] [id number] [place] [address]- 0804 June, [facility] [place] [facility] [address] [id number] [place] 3518 June, [facility] [place] [facility] [address] [id number] [place] [address]- 0833 June, [facility] [place] [facility] [address] [id number] [place] [address]- 3625 June, [facility] [place] [facility] [address] [id number] [place] [address]- 0866 June, [facility] [place] [facility] [address] [id number] [place] [address]- 7010 June, [facility] [place] [facility] [address] [id number] [place] [address]- 6362 May, [facility] [place] [facility] [address] [id number] [place] [address]- 9434 May, [facility] [place] [facility] [address] [id number] [place] [address]- 8982 May, [facility] [place] [facility] [address] [id number] [place] [address]- 9377 May, [facility] [place] [facility] [address] [id number] [place] [address]- 7036 May, [facility] [place] [facility] [address] [id number] [place] [address]- 1667 May, [facility] [place] [facility] [address] [id number] [place] [address]- 8019 Apr, [facility] [place] [facility] [address] [id number] [place] [address]- 4383 31 Apr, 2013 [facility] [place] [facility] [address] [id number] [place] [address]- 7457 28 Apr, 2013 [facility] [place] [facility] [address] [id number] [place] [address]- 4627 28 Apr, 2013 [facility] [place] [facility] [address] [id number] [place] [address]- 9880 14 Apr, 2013 [facility] [place] [facility] [address] [id number] [place] [address]- 8748 14 Apr, 2013 [facility] [place] [facility] [address] [id number] [place] 9980 12 Apr, 2013 [facility] [place] [facility] [address] [id number] [place] [address]- 9286 Apr, [facility] [place] [facility] [address] [id number] [place] [address]- 8271 Apr, [facility] [place] [facility] [address] [id number] [place] [address]- 1907 Apr, [facility] [place] [facility] [address] [id number] [place] [address]- 8599 Apr, [facility] [place] [facility] [address] [id number] [place] [address]- 8919 Apr, [facility] [place] [facility] [address] [id number] [place] [address]- 6539 Apr, [facility] [place] [facility] [address] [id number] [place] [address]- 8429 Apr, [facility] [place] [facility] [address] [id number] [place] [address]- 3369 Mar, [facility] [place] [facility] [address] [id number] [place] [address]- 2333 Mar, [facility] [place] [facility] [address] [id number] [place] [address]- 5460 Mar, [facility] [place] [facility] [address] [facility] [id number] [place] [address]- 6769 Feb, [facility] [place] [facility] [address] [id number] [place] [address]- 0525 Feb, [facility] [place] [facility] [address] [id number] [place] [address]- 0758 Feb, [facility] [place] [facility] [address] [id number] [place] [address]- 07[address] Feb, [facility] [place] [facility] [address] [id number] [place] [address] Feb, [facility] [place] [facility] [address] [id number] [place] [address] Feb, [facility] [place] [facility] [address] [id number] [place] [address] Feb, [facility] [address] [id number] [place] [address] Feb, [facility] [place] [facility] [address] [id number] [place] [address]- [address] Feb, [facility] [address] [id number] [place] [address] Feb, [facility] [address] [id number] [place] [address] Jan, [facility] [place] [facility] [address] [id number] [place] [address]- [address] Jan, [facility] [address] [id number] [place] [address] Jan, [facility] [address] [id number] [place] [address] Jan, [facility] [address] [id number] [place] [address] Jan, [facility] [address] [id number] [place] [address]- 8569 Jan, [facility] [address] [id number] [place] [address]- [address] Jan, [facility] [place] [facility] [address] [id number] [place] [address] Jan, [facility] [place] [facility] [address] [id number] [place] [address]- [address] Jan, [facility] [place] [facility] [address] [id number] [place] [address]- [address] Jan, [facility] [place] [facility] [address] [id number] [place] [address] 17 Jan, 2013 [facility] [place] [facility] [address] [id number] [place] [address] 17 Jan, 2013 [facility] [place] [facility] [address] [id number] [place] [address]- [address] 16 Jan, 2013 [facility] [place] [facility] [address] [id number] [place] [address]- 37[address] Jan, [facility] [place] [facility] [address] [facility] [id number] [place] [address]- 4436 Jan, [facility] [place] [facility] [address] [id number] [place] [address]- 7067 Jan, [facility] [place] [facility] [address] [id number] [place] [address] Jan, [facility] [place] [facility] [address] [id number] [place] [address]- 3075 Jan, [facility] [place] [facility] [address] [id number] [place] [address]- 3910 Jan, [facility] [place] [facility] [address] [id number] [place] [address]- 7785 Jan, [facility] [place] [facility] [address] [id number] [place] [address]- 7742 Jan, [facility] [place] [facility] [address] [id number] [place] [address]- 6049 Dec, [facility] [place] [facility] [address] [id number], [place] [address]- [address] Dec, [facility] [place] [facility] [address] [id number] [address]- [address] Dec, [facility] [place] [facility] [address] [id number] [place] [address]- 1396 Dec, [facility] [place] [facility] [address] [facility] [id number] [address]- [address] Dec, [facility] [place] [facility] [address] [facility] [id number] [address]- [address] Dec, [facility] [place] [facility] [address] [id number] [place] [address]- 6721 Dec, [facility] [address] [id number] [place] [address]- 1313 Dec, [facility] [place] [facility] [address] [id number] [place] [address]- 0430 Dec, [facility] [place] [facility] [address] [id number] [place] [address]- 5081 Dec, [facility] [place] [facility] [address] [id number] [place] [address]- 6564 Nov, [facility] [place] [facility] [address] [id number] [place] [address]- 3294 Nov, [facility] [place] [facility] [address] [id number] [place] [address]- 8053 Nov, [facility] [place] [facility] [address] [id number] [place] [address]- 4388 Nov, [facility] [place] [facility] [address] [id number] [place] [address]- 0114 Nov, [facility] [place] [facility] [address] [id number] [place] [address]- 8740 Nov, [facility] [place] [facility] [address] [id number] [place] [address]- 1689 Nov, [facility] [place] [facility] [address] [id number] [place] [address]- 8141 Nov, [facility] [place] [facility] [address] [id number] [place] [address]- [address] 10 Nov, 2012 [facility] [place] [facility] [address] [id number] [place] [address] Nov, [facility] [place] [facility] [address] [id number] [place] [address]- 2010 Oct, [facility] [place] [facility] [address] [id number] [place] [address]- 1829 Oct, [facility] [place] [facility] [address] [id number] [place] [address]- 7229 Oct, [facility] [place] [facility] [address] [id number] [place] [address]- 8816 Oct, [facility] [place] [facility] [address] [id number] [place] [address]- 9450 Oct, [facility] [place] [facility] [address] [id number] [place] [address]49 Sep, [facility] [address] [id number] [place] [address]- 7529 Sep, [facility] [place] [facility] [address] [id number] [place] [address]- [address]234 Aug, [facility] [place] [facility] [address] [id number] [place] [address]- 3178 Aug, [facility] [address] [id number] [place] [address]- 5930 Aug, [facility] [place] [facility] [address] [id number] [place] [address]- 1563 Aug, [facility] [place] [facility] [address] [id number] [place] [address]- 6543 Aug, [facility] [place] [facility] [address] [id number] [place] [address]- 9266 Aug, [facility] [place] [facility] [address] [id number] [place] [address] Aug, [facility] [place] [facility] [address] [id number] [place] [address] Jul, [facility] [place] [facility] [address] [id number] [place] [address] 113[address] Jul, [facility] [place] [facility] [address] [id number] [place] [address] 2529 June, [facility] [place] [facility] [address] [id number] [place] [address] 1594 June, [facility] [address] [id number] [place] [address] 9166 June, [facility] [address] [id number] [place] [address] June, [facility] [address] [id number] [place] [address]- 2626 June, [facility] [address] [id number] [place] [address]- 56[address] June, [facility] [address] [id number] [place] [address]- 7[address] June, [facility] [address] [id number] [place] [address]- 45[address] June, [facility] [address] [id number] [place] [address]- 1700 June, [facility] [address] [id number] [place] [address]- 1898 June, [facility] [address] [id number] [place] [address]- 1758 June, [facility] [address] [id number] [place] [address]- 6635 May, [facility] [address] [id number] [place] [address]- 0435 May, [facility] [place] [facility] [address] [id number] [place] [address]- 7439 May, [facility] [address] [id number] [place] [address] May, [facility] [place] [facility] [address] [id number] [place] [address]- 480[address] Apr, [facility] [place] [facility] [address] [id number] [place] [address]- 2395 Apr, [facility] [place] [facility] [address] [id number] [place] [address]- 6426 Apr, [facility] [address] [id number] [place] [address]- 5766 Mar, [facility] [place] [facility] [address] [id number] [place] [address]- 2546 Mar, [facility] [address] [id number] [place] [address]- 4616 29 Feb, 2012 [facility] [place] [facility] [address] [id number] [place] [address]- 8788 Feb, [facility] [address] [id number] [place] [address]- 7526 Feb, [facility] [address] [id number] [place] [address]- 2576 Feb, [facility] [address] [id number] [place] [address]- 0985 16 Feb, 2012 [facility] [address] [id number] [place] [address]- 9794 14 Feb, 2012 [facility] [address] [id number] [place] [address]- 6431 Feb, [facility] [address] [id number] [place] [address]- 5379 31 Jan, 2012 [facility] [address] [id number] [place] [address]- 6066 31 Jan, 2012 [facility] [place] [facility] [address] [id number] [place] [address]- 7135 28 Jan, 2012 [facility] [place] [facility] [address] [id number] [place] [address]- 8526 17 Jan, 2012 [facility] [place] [facility] [address] [id number] [place] [address]- 7836 17 Jan, 2012 [facility] [place] [facility] [address] [id number] [place] [address] 6[address] Jan, [facility] [place] [facility] [address] [id number] [place] [address]- 4490 Jan, [facility] [place] [facility] [address] [id number] [place] [address]- 9632 Jan, [facility] [place] [facility] [address] [facility] [id number] [place] [address]- 5032 Jan, [facility] [place] [facility] [address] [id number] [place] [address] Jan, [facility] [place] [facility] [address] [id number] [place] [address]- 1841 Jan, [facility] [place] [facility] [address] [id number] [place] [address]- 8826 Dec, [facility] [place] [facility] [address] [id number] [place] [address]- 9267 Dec, [facility] [place] [facility] [address] [id number] [place] [address]- 6928 Dec, [facility] [place] [facility] [address] [id number] [place] [address]- 5762 Dec, [facility] [place] [facility] [address] [facility] [id number] [place] [address]- 9212 Nov, [facility] [place] [facility] [address] [id number], [place] [address]- 90[address] Nov, [facility] [place] [facility] [address] [id number] [address]- 92[address] Nov, [facility] [place] [facility] [address] [id number] [place] [address]- 2589 Oct, [facility] [place] [facility] [address] [id number], [place] [address]- [address]46 24 Oct, 2011 [facility] [place] [facility] [address] [id number], [place] [address]- 6424 Oct, [facility] [place] [facility] [address] [id number] [place] [address]- 3300 10 Oct, 2011 [facility] [place] [facility] [address] [id number] [place] [address]- 6126 07 Oct, 2011 [facility] [place] [facility] [address] [id number] [place] [address] 2546 04 Oct, 2011 [facility] [place] [facility] [address] [id number] [place] [address] 2546 04 Oct, 2011 [facility] [place] [facility] [address] [id number] [place] [address] 2546 29 Sep, 2011 [facility] [place] [facility] [address] [id number] [place] [address]- 2926 Sep, [facility] [place] [facility] [address] [id number] [place] [address]- 6494 Sep, [facility] [place] [facility] [address] [id number] [place] [address]- 0889 Sep, [facility] [place] [facility] [address] [id number] [place] [address]- 0870 Sep, [facility] [place] [facility] [address] [id number] [place] [address]- 9395 30 Aug, 2011 [facility] [place] [facility] [address] [id number] [place] [address]- 9933 Aug, [facility] [place] [facility] [address] [id number] [place] [address] 2546 17 Aug, 2011 [facility] [place] [facility] [address] [id number] [place] [address] 2540 16 Aug, 2011 [facility] [place] [facility] [address] [id number] [place] [address]- 1276 13 Aug, 2011 [facility] [place] [facility] [address] [id number] [place] [address] 2546 Aug, [facility] [place] [facility] [address] [id number] [place] [address]- 9148 Aug, [facility] [place] [facility] [address] [id number] [place] [address]- 7684 Jul, [facility] [place] [facility] [address] [id number] [place] [address]- 6447 Jul, [facility] [place] [facility] [address] [id number] [place] [address]- 7130 Jul, [facility] [place] [facility] [address] [id number] [place] [address]- 2474 Jul, [facility] [place] [facility] [address] [id number] [place] [address]- 5031 Jul, [facility] [place] [facility] [address] [id number] [place] [address]- 9506 Jul, [facility] [place] [facility] [address] [id number] [place] [address]- 0485 Jul, [facility] [place] [facility] [address] [id number] [place] [address]- 3098 Jul, [facility] [place] [facility] [address] [id number] [place] [address]- 7803 Jul, [facility] [place] [facility] [address] [id number] [place] [address]- 4632 June, [facility] [place] [facility] [address] [id number] [place] [address]- 4860 June, [facility] [place] [facility] [address] [id number] [place] [address]- 9457 June, [facility] [place] [facility] [address] [id number] [place] [address]- 4290 June, [facility] [place] [facility] [address] [id number] [place] [address]- 5488 June, [facility] [place] [facility] [address] [id number] [place] [address]- 3505 June, [facility] [place] [facility] [address] [id number] [place] [address]- 2546 June, [facility] [place] [facility] [address] [id number] [place] [address]- 1230 June, [facility] [place] [facility] [address] [id number] [place] [address]- 9646 May, [facility] [place] [facility] [address] [id number] [place] [address]- 0516 May, [facility] [place] [facility] [address] [id number] [place] [address]- 7517 May, [facility] [place] [facility] [address] [id number] [place] [address]- 6316 May, [facility] [place] [facility] [address] [id number] [place] [address]- 7456 May, [facility] [place] [facility] [address] [id number] [place] [address]89 May, [facility] [place] [facility] [address] [id number] [place] [address]- 5249 May, [facility] [place] [facility] [address] [id number] [place] [address]- 4825 Apr, [facility] [place] [facility] [address] [id number] [place] [address]- 3576 Apr, [facility] [place] [facility] [address] [id number] [place] [address]- 5415 Apr, [facility] [place] [facility] [address] [id number] [place] [address]- 1910 Apr, [facility] [place] [facility] [address] [id number] [place] [address]- 2079 Apr, [facility] [place] [facility] [address] [id number] [place] [address]- 0217 Apr, [facility] [place] [facility] [address] [id number] [place] [address]- 5604 Apr, [facility] [place] [facility] [address] [id number] [place] [address]- 5626 20 Mar, 2011 [facility] [place] [facility] [address] [id number] [place] [address]- 2446 20 Mar, 2011 [facility] [place] [facility] [address] [id number] [place] [address] 2546 14 Mar, 2011 [facility] [place] [facility] [address] [id number] [place] [address] 2546 13 Mar, 2011 [facility] [place] [facility] [address] [id number] [place] [address] 2546 Mar, [facility] [place] [facility] [address] [id number] [place] [address]- 9956 Mar, [facility] [place] [facility] [address] [id number] [place] [address]- 2789 Mar, [facility] [place] [facility] [address] [id number] [place] [address]- 0720 Feb, [facility] [place] [facility] [address] [id number] [place] [address]- 5868 Feb, [facility] [place] [facility] [address] [id number] [place] [address]- 2032 Feb, [facility] [place] [facility] [address] [id number] [place] [address]- 1073 Feb, [facility] [place] [facility] [address] [id number] [place] [address]- 4136 Feb, [facility] [place] [facility] [address] [id number] [place] [address]- 5606 Feb, [facility] [place] [facility] [address] [id number] [place] [address]- 2166 Feb, [facility] [place] [facility] [address] [id number] [place] [address]- 7719 Feb, [facility] [place] [facility] [address] [id number] [place] [address]- 6856 Feb, [facility] [address] [id number] [place] 7769 Feb, [facility] [place] [facility] [address] [id number] [place] [address]- 1001 Jan, [facility] [place] [facility] [address] [id number] [place] [address]- 4336 Jan, [facility] [place] [facility] [address] [id number] [place] [address]- 6111 Jan, [facility] [place] [facility] [address] [id number] [place] [address]- 8224 Jan, [facility] [place] [facility] [address] [id number] [place] [address]- 5868 Jan, [facility] [place] [facility] [address] [id number] [place] [address]- 5599 Jan, [facility] [place] [facility] [address] [id number] [place] [address]- 3418 Jan, [facility] [place] [facility] [address] [id number] [place] [address]- 1356 Jan, [facility] [place] [facility] [address] [id number] [place] [address]- 6379 Jan, [facility] [place] [facility] [address] [id number] [place] [address]- 7875 Jan, [facility] [place] [facility] [address] [id number] [place] [address]- 2651 Jan, [facility] [place] [facility] [address] [id number] [place] [address]- 0381 Dec, [facility] [place] [facility] [address] [id number] [place] [address]- 3439 Dec, [facility] [place] [facility] [address] [id number] [place] [address]- 3395 Dec, [facility] [place] [facility] [address] [id number] [place] [address]- 5866 16 Dec, 2010 [facility] [address] [id number] [place] [address]- 9041 14 Dec, 2010 [facility] [place] [facility] [address] [id number] [place] [address]- 8479 09 Dec, 2010 [facility] [place] [facility] [address] [id number] [place] [address]- 9499 08 Dec, 2010 [facility] [place] [facility] [address] [id number] [place] [address]- 0467 07 Dec, 2010 [facility] [place] [facility] [address] [id number] [place] [address]- 9538 Dec, [facility] [place] [facility] [address] [id number] [place] [address]- 5627 Nov, [facility] [place] [facility] [address] [id number] [place] [address]- 6729 Nov, [facility] [place] [facility] [address] [id number] [place] [address]- 9319 27 Nov, 2010 [facility] [place] [facility] [address] [id number] [place] [address]- 8827 24 Nov, 2010 [facility] [place] [facility] [address] [id number] [place] [address]- 3913 24 Nov, 2010 [facility] [place] [facility] [address] [id number] [place] [address]- 5598 13 Nov, 2010 [facility] [place] [facility] [address] [id number] [place] [address]- 7747 Aug, [facility] [place] [facility] [address] [id number] [place] [address]- 6688 14 Feb, 2010 [facility] [place] [facility] [address] [id number] [place] [address]- 9003 14 Jan, 2010 [facility] [place] [facility] [address] [id number] [place] [address]85 Jan, [facility] [address] [id number] [address]- 9946 Jan, [facility] [address] [facility] [id number], [place] [address]- 5566 Jan, [facility] [address] [facility] [id number], [place] [address]- 7089 Jan, [facility] [address] [facility] [id number], [place] [address]- 4446 Dec, [facility] [address] [facility] [id number], [place] [address]- 2631 Dec, [facility] [address] [facility] [id number], [place] [address]- 8826 Dec, [facility] [id number] [address]- 5913 Dec, [facility] [id number], [place] [address]- 8762 Nov, [facility] [address] [id number], [place] [address]- 9292 Nov, [facility] [address] [id number] [address]- 2626 Nov, IMMUNIZATIONS No Known Immunizations SOCIAL HISTORY Never Assessed REASON FOR VISIT Controlled refill request PLAN OF CARE VITAL SIGNS [...]
--- OUTSIDE RECORDS SUMMARY | 2018-01-13 20:53 | XMS REPORT ---
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 Active 616101660 Problem Hypertension I10 Active 38637196 Problem Arthritis M19.90 Active 3532117 Problem 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 Active 43433416 Problem Anxiety F41.9 Active 78185281 Problem Unspecified episodic mood disorder F39 Active 25032052 Problem Left hip pain M25.552 Active 65504433 ALLERGIES No Information ENCOUNTERS Encounter Location Date Diagnosis [facility] [address] [facility] [id number] [address] Sep, Unspecified episodic mood disorder F39 [facility] [address] [facility] [id number] [address] Aug, [facility] [address] [id number] [id number] Aug, [facility] [address], [place] [address] Aug, Arthritis M19.90 [facility] [address], [place] [address] Aug, [facility] [address], [place] [address] Aug, Obesity (BMI 30.0-34.9) E66.9 ; Unspecified episodic mood disorder F39 and Hypertension I10 [facility] [address], [place] [address] Aug, Unspecified episodic mood disorder F39 [facility] [id number] [place] [address] 62393- 0691 Aug, [facility] [id number] [place] [address] 39355- 9214 Jul, Unspecified episodic mood disorder F39 [facility] [address], [place] [address] Jul, [facility] [id number] [place] [address] 90361- 1365 Jul, Arthritis M19.90 [facility] [address], [place] [address] Jul, Left hip pain M25.552 ; Hypertension I10 ; Other obesity due to excess calories E66.09 and Body mass index (BMI) of 34.0-34.9 in adult Z68.34 [facility] [address], [place] [address] Jul, Unspecified episodic mood disorder F39 [facility] [address], [place] [address] June, Gastroesophageal reflux disease, esophagitis presence not specified K21.9 [facility] [id number] [place] [address] 48440- 2824 June, [facility] [address], [place] [address] June, [facility] [address], [place] [address] 0[address] June, Arthritis M19.90 [facility] [address], [place] [address] 0829 June, [facility] [id number] [place] [address] 40107- 5955 June, [facility] [address], [place] [address] 57[address] June, Unspecified episodic mood disorder F39 [facility] [address], [place] [address] May, Unspecified episodic mood disorder F39 [facility] [id number] [place] [address] 48376- 4088 May, [facility] [id number] [place] [address] 61830- 7470 May, Arthritis M19.90 [facility] [address] [place] [address] 41180 -2138 May, Dysuria R30.0 ; Abscess L02.91 and Acute cystitis without hematuria N30.00 [facility] [address], [place] [address] 3[address] May, 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 ; Unspecified episodic mood disorder F39 ; Combined drug dependence excluding opioids, 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 ; Anxiety F41.9 and Other psychoactive substance dependence, 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 [facility] [address], [place] [address] 38[address] May, [facility] [address], [place] [address] May, 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 ; Unspecified episodic mood disorder F39 ; Combined drug dependence excluding opioids, 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 ; Other psychoactive substance dependence, 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 and Anxiety F41.9 [facility] [address] [address] May, Other chronic pain G89.29 ; Left hip pain M25.552 ; Hypertension I10 ; 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, 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 and Unspecified episodic mood disorder F39 [facility] [address] [address]- [address] Apr, [facility] [address] [address] Apr, Neck pain M54.2 ; Left hip pain M25.552 and Fall, initial encounter W19.XXXA [facility] [address] [address]- 6420 Apr, Unspecified episodic mood disorder F39 ; Combined drug dependence excluding opioids, 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 ; Anxiety F41.9 ; Other psychoactive substance dependence, 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 and 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 [facility] [address] [address]17- 2054 Apr, [facility] [address] 16369- 7337 Apr, Arthritis M19.90 and Unspecified episodic mood disorder F39 [facility] [id number] [place] [address] 13948- 9656 Apr, Unspecified episodic mood disorder F39 [facility] [id number] [place] [address] 78673- 2214 Apr, [facility] [address] 13351- 9634 Apr, [facility] [id number] [place] [address] 75461- 0752 Apr, Unspecified episodic mood disorder F39 ; Combined drug dependence excluding opioids, 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 ; Anxiety F41.9 ; Other psychoactive substance dependence, 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 and 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 [facility] [id number] [place] [address] 66620- 3006 Mar, Unspecified episodic mood disorder F39 [facility] [id number] [place] [address] 88265- 0086 Mar, Gastroesophageal reflux disease, esophagitis presence not specified K21.9 [facility] [id number] [place] [address] 14988 2546 Mar, Arthritis M19.90 and Unspecified episodic mood disorder F39 [facility] [id number] [place] [address] 87885- 7186 Feb, [facility] [address] 43140- 8816 Feb, [facility] [id number] [place] [address] 71591 2546 Feb, [facility] [id number] [place] [address] 18402 2546 Feb, Arthritis M19.90 [facility] [id number] [place] [address] 65114 2546 Feb, Non-pressure chronic ulcer of right calf, 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 ; Unspecified episodic mood disorder F39 and Left hip pain M25.552 [facility] [id number] [place] [address] 88119 2546 Feb, [facility] [id number] [place] [address] 00184 2546 Feb, [facility] [id number] [place] [address] 74472 2546 Jan, Arthritis M19.90 [facility] [id number] [place] [address] [id number]- 3342 Jan, Left hip pain M25.552 and Non-pressure chronic ulcer of right calf, 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 [facility] [address] 36543- 1551 Jan, Chronic hepatitis C without hepatic coma B18.2 [facility] [address] 98699- 9950 Jan, Encounter for immunization Z23 ; Venous insufficiency ( chronic) (peripheral) I87.2 ; Non-pressure chronic ulcer of unspecified calf limited to breakdown of skin L97.201 and Gastroesophageal reflux disease, esophagitis presence not specified K21.9 [facility] [address] [address]- 6252 Jan, [place] [address] 87245- 1405 Jan, Chronic hepatitis C without hepatic coma B18.2 and Encounter for immunization Z23 [facility] [address] 22439- 9826 Jan, Arthritis M19.90 [facility] [address] 07970- 4555 Jan, [facility] [id number] [place] [address] 89954- 3604 Dec, [facility] [id number] [place] [address] 42041- 1180 Dec, Unspecified episodic mood disorder F39 [facility] [id number] [place] [address] 56672- 1595 Dec, Arthritis M19.90 [facility] [address] 51709- 9373 Dec, Arthritis M19.90 [facility] [id number] [place] [address] 72128- 4598 Nov, [facility] [address] 94065- 5064 Nov, [facility] [id number] [place] [address] 85130- 9915 Nov, Other psychoactive substance dependence, 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 ; 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90 [facility] [id number] [place] [address] 16174- 7764 Sep, [facility] [id number] [place] [address] 41428- 0701 Sep, [facility] [id number] [place] [address] 80963- 5348 Sep, Unspecified episodic mood disorder F39 ; Chronic hepatitis C without hepatic coma B18.2 and Left hip pain M25.552 [facility] [id number] [place] [address] 58871- 0808 Sep, Arthritis M19.90 and Left hip pain M25.552 [facility] [id number] [place] [address] 87214- 2570 Aug, [facility] [id number] [place] [address] 84439- 9361 Aug, [facility] [id number] [place] [address] 19000- 9811 Aug, Chronic hepatitis C without hepatic coma B18.2 [facility] [address], [place] [address]- 9274 Aug, [facility] [id number] [place] [address] 05233- 7243 Aug, Chronic hepatitis C without hepatic coma B18.2 [facility] [id number] [place] [address] 89671- 5399 Aug, 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, 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 [facility] [id number] [place] [address] 91003- 9301 Aug, [facility] [id number] [place] [address] 85624- 1873 Aug, Chronic hepatitis C without hepatic coma B18.2 and Hypertension I10 [facility] [id number] [place] [address] 13878- 4730 Jul, [facility] [id number] [place] [address] 00341- 7821 June, [facility] [id number] [place] [address] 00776- 1915 Apr, Fibromyalgia M79.7 ; Left hip pain M25.552 and Decubitus ulcer of sacral region, stage 1 L89.151 [facility] [id number] [place] [address] 97698- 2864 Apr, [facility] [id number] [place] [address] 59191- 2953 Apr, [facility] [id number] [place] [address] 15840- 5160 Feb, [facility] [id number] [place] [address] 22506- 3426 Dec, Anxiety F41.9 ; Combined drug dependence excluding opioids, 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 and Unspecified episodic mood disorder F39 [facility] [address], [place] [address]- 6590 Dec, [facility] [id number] [place] [address] 16704- 4177 Nov, [facility] [id number] [place] [address] 05224- 5054 Nov, [facility] [id number] [place] [address] 81061- 8257 Nov, 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 and Anxiety F41.9 [facility] [id number] [place] [address] 24845- 0865 Oct, [facility] [id number] [place] [address] 78508 -8180 14 Oct, 2015 Open wound of left thigh, initial encounter S71.102A [facility] [id number] [place] [address] 30696- 2537 Oct, [facility] [id number] [place] [address] 76581- 0952 Sep, Unspecified episodic mood disorder F39 ; Other disorder of impulse control 312.39 ; Combined drug dependence excluding opioids, 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 and Anxiety F41.9 [facility] [address] [place] [address] 43528- 3287 Sep, Other disorder of impulse control 312.39 ; Combined drug dependence excluding opioids, 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 ; Anxiety F41.9 and Unspecified episodic mood disorder F39 [facility] [address] [place] [address] 81113- 7770 Sep, Other chronic pain G89.29 [facility] [id number] [place] [address] 50651- 8618 Sep, [facility] [id number] [place] [address] 15326- 6211 Sep, [facility] [id number] [place] [address] 96894- 5725 Aug, [facility] [address], [place] [address]- 4357 Aug, [facility] [id number] [place] [address] 15854- 0442 Aug, [facility] [id number] [place] [address] 40398- 9028 Jul, [facility] [id number] [place] [address] 73413- 4287 Jul, [facility] [id number] [place] [address] 75996- 9679 Jul, [facility] [id number] [place] [address] 83813- 9380 Jul, Arthritis M19.90 ; Chronic hepatitis C without hepatic coma B18.2 and Left hip pain M25.552 [facility] [id number] [place] [address] 79957- 3143 Jul, Left knee pain M25.562 [facility] [id number] [place] [address] 12867- 3469 Jul, Combined drug dependence excluding opioids, 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 ; Anxiety F41.9 ; Other disorder of impulse control 312.39 and Unspecified episodic mood disorder F39 [facility] [address] [place] [address] 09423- 6832 Jul, Left knee pain M25.562 [facility] [address] [place] [address] 63298- 1476 Jul, Left knee pain M25.562 and Left hip pain M25.552 [facility] [address] [place] [address] 21173- 0813 Jul, [facility] [address] [place] [address] 19406- 7847 June, [facility] [address] [place] [address] 11729- 3972 June, Combinations of drug dependence excluding opioid type drug, unspecified abuse 304.80 ; Other disorder of impulse control 312.39 ; Unspecified episodic mood disorder F39 and Anxiety F41.9 [facility] [id number] [place] [address] 00030- 9506 June, Other fatigue R53.83 ; Headache R51 and Left knee pain M25.562 [facility] [id number] [place] [address] 47084- 8008 June, Unspecified episodic mood disorder F39 ; Combinations of drug dependence excluding opioid type drug, unspecified abuse 304.80 ; Other disorder of impulse control 312.39 and Anxiety F41.9 [facility] [id number] [place] [address] 65033- 4813 June, Anxiety F41.9 [facility] [id number] [place] [address] 36979- 9151 June, Pain in left knee M25.562 [facility] [id number] [place] [address] 43079- 1006 June, Anxiety F41.9 and Combinations of drug dependence excluding opioid type drug, unspecified abuse 304.80 [facility] [address] [place] [address] 01551- 5981 June, Unspecified episodic mood disorder 296.90 ; Combinations of drug dependence excluding opioid type drug, unspecified abuse 304.80 and Other disorder of impulse control 312.39 [facility] [id number] [place] [address] 34215- 9432 June, Anxiety F41.9 and Unspecified episodic mood disorder 296.90 [facility] [id number] [place] [address] 51208- 4830 May, Arthritis M19.90 [facility] [id number] [place] [address] 27921- 3352 May, Arthritis M19.90 [facility] [address], [place] [address]- 6258 18 May, 2015 Anxiety F41.9 ; Combinations of drug dependence excluding opioid type drug, unspecified abuse 304.80 and Other disorder of impulse control 312.39 [facility] [address], [place] [address]- 5354 18 May, 2015 Left knee pain M25.562 [facility] [id number] [place] [address] 69075- 3702 14 May, 2015 Arthritis M19.90 [facility] [id number] [place] [address] 48595- 0576 13 May, 2015 [facility] [address] [place] [address] 29211- 2737 May, Anxiety F41.9 ; Unspecified episodic mood disorder 296.90 ; Combinations of drug dependence excluding opioid type drug, unspecified abuse 304.80 and Other disorder of impulse control 312.39 [facility] [address], [place] [address]- 6842 11 May, 2015 Left knee pain M25.562 [facility] [id number] [place] [address] 12951- 6339 11 May, 2015 Left knee pain M25.562 ; Combinations of drug dependence excluding opioid type drug, unspecified abuse 304.80 ; Other disorder of impulse control 312.39 ; Fibromyalgia M79.7 ; Hypertension I10 ; Unspecified episodic mood disorder 296.90 and Left hip pain M25.552 [facility] [address], [place] [address]- 7280 11 May, 2015 Unspecified episodic mood disorder 296.90 ; Other disorder of impulse control 312.39 ; Combinations of drug dependence excluding opioid type drug, unspecified abuse 304.80 and Anxiety F41.9 [facility] [address], [place] [address]- 2180 06 May, 2015 Left knee pain M25.562 ; Combinations of drug dependence excluding opioid type drug, unspecified abuse 304.80 ; Other disorder of impulse control 312.39 ; Fibromyalgia M79.7 ; Hypertension I10 ; Unspecified episodic mood disorder 296.90 and Left hip pain M25.552 [facility] [place] [address] [place] [address] 06444- 1088 May, Anxiety F41.9 ; Unspecified episodic mood disorder 296.90 ; Other disorder of impulse control 312.39 and Combinations of drug dependence excluding opioid type drug, unspecified abuse 304.80 [place] [id number] [place] [address] 57099- 9870 30 Apr, 2015 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 and 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, implants and grafts, initial encounter T84.82XA [facility] [id number] [place] [address] 14488- 6158 Apr, Anxiety F41.9 ; Unspecified episodic mood disorder 296.90 ; Combinations of drug dependence excluding opioid type drug, unspecified abuse 304.80 and Other disorder of impulse control 312.39 [place] [place] [address] [place] [address] 41962- 6020 Apr, Arthritis M19.90 [facility] [id number] [place] [address] 44695- 9502 Apr, Anxiety F41.9 ; Unspecified episodic mood disorder 296.90 ; Combinations of drug dependence excluding opioid type drug, unspecified abuse 304.80 and Other disorder of impulse control 312.39 [facility] [id number] [place] [address] 57936- 1524 Apr, Arthritis M19.90 [place] [id number] [place] [address] 56206- 1577 Apr, [facility] [id number] [place] [address] 32558- 3411 Apr, [facility] [id number] [place] [address] 31796- 2403 14 Apr, 2015 Unspecified episodic mood disorder 296.90 ; Combinations of drug dependence excluding opioid type drug, unspecified abuse 304.80 ; Other disorder of impulse control 312.39 and Anxiety F41.9 [facility] [id number] [place] [address] 76464 -8370 Apr, Left knee pain M25.562 [facility] [address] [place] [address] 81037- 2558 Apr, [facility] [id number] [place] [address] 11547- 7738 Mar, Unspecified episodic mood disorder 296.90 ; Anxiety F41.9 ; Other disorder of impulse control 312.39 and Combinations of drug dependence excluding opioid type drug, unspecified abuse 304.80 [facility] [id number] [place] [address] 49764- 3910 Mar, Hyperpigmentation L81.9 [facility] [id number] [place] [address] 62747- 0578 Mar, Arthritis M19.90 and Anxiety F41.9 [facility] [id number] [place] [address] 47662- 4215 Mar, Unspecified episodic mood disorder F39 ; Combined drug dependence excluding opioids, 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 ; 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 and Anxiety F41.9 [facility] [address] [place] [address] 01797- 4440 12 Mar, 2015 Well woman exam Z01.419 ; Other fatigue R53.83 ; Hot flashes N95.1 ; Depression, unspecified depression type F32.9 and Body mass index (BMI) of 23.0-23.9 in adult Z68.23 [facility] [facility] [id number] [place] [address] 83498- 5065 11 Mar, 2015 Unspecified episodic mood disorder 296.90 ; Other disorder of impulse control 312.39 and Anxiety F41.9 [facility] [id number] [place] [address] 9[address]64- 6181 Mar, Well woman exam Z01.419 ; Encounter [...] of breast Z12.39 and Limited mobility Z74.[address] [address]- 7394 Mar, [address] [address]- 9473 Mar, [address] [address]356- 7090 Mar, [address] 71453- 8003 Mar, Other specified complication of internal orthopedic prosthetic devices, implants and grafts, initial encounter T84.89XA ; Fibromyalgia M79.7 ; Hypertension I10 ; Anemia D64.9 ; Insomnia G47.00 ; Anxiety F41.9 ; Arthritis M19.90 and Migraine G43.909 [address] [address]- 8711 Mar, [address] [address]- 7202 Feb, [address] [address]- 2597 Feb, Arthritis M19.90 and Anxiety F41.[address] 6[address]77- 6269 Feb, [facility] [address] [facility] [id number] [place] [address] 9677 Feb, [facility] [id number] [place] [address] 9546 Feb, [facility] [id number] [place] [address]- 3823 Feb, [facility] [id number] [place] [address], [place] [address]- 3914 Feb, Anxiety F41.9 [facility] [id number] [place] [address], [place] [address]- 8037 Feb, [facility] [id number] [place] [address], [place] [address]- 2783 Feb, [facility] [id number] [place] [address]- 6267 Feb, 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 and Fibromyalgia M79.7 [facility] [id number] [place] [address]- 9456 Feb, [facility] [id number] [place] [address], [place] [address]- 1375 Jan, [facility] [address]00565[address] [address]- 7196 Jan, [facility] [id number] [place] [address]- 1610 Jan, [facility] [id number] [place] [address]- 3740 24 Jan, 2015 [facility] [id number] [place] [address]- 1208 16 Jan, 2015 [facility] [id number] [place] [address]- 2548 08 Jan, 2015 [facility] [address] [id number] [address]- 2539 Jan, [facility] [address]65[address], [place] [address]- 6423 Jan, [facility] [facility] [id number] [place] [address] 57033- 9433 Dec, [facility] [facility] [id number] [place] [address] 99367- 2305 Dec, Left knee pain M25.562 [facility] [id number] [place] [address] 131679- 7002 Dec, Left knee pain M25.562 [facility] [id number] [place] [address] 36792- 7836 Dec, Fibromyalgia M79.7 ; Hypertension I10 and Arthritis M19.90 [facility] [id number] [place] [address] 78763- 4814 Dec, [facility] [id number] [place] [address] 27708- 1929 Dec, [facility] [id number] [place] [address] 22117- 0970 Dec, [facility] [id number] [place] [address] 87617- 4286 Dec, [facility] [id number] [place] [address] 40561- 4601 Nov, [facility] [id number] [place] [address] 08460- 4401 Nov, [facility] [id number] [place] [address] 58186- 9717 Nov, [facility] [id number] [place] [address] 93533- 4101 Nov, Hypertension I10 [facility] [id number] [place] [address] 84179- 5084 Oct, [facility] [id number] [place] [address] 71358- 3710 17 Oct, 2014 [facility] [place] [facility] [address] [id number], [place] [address]- 6148 Oct, [facility] [place] [facility] [address] [id number], [place] [address]- 3470 Oct, [facility] [place] [facility] [address] [facility] [id number], [place] [address]- 6510 Oct, [facility] [place] [facility] [address] [facility] [id number], [place] [address]- 6540 Sep, [facility] [place] [facility] [address] [facility] [id number] [place] [address] 08048- 6688 Sep, [facility] [place] [facility] [address] [id number], [place] [address]- 1311 Sep, Hip pain associated with recalled total hip arthroplasty hardware 996.77 [facility] [place] [facility] [address] [id number], [place] [address]- 7775 Sep, [facility] [place] [facility] [address] [id number], [place] [address]- 0945 Sep, [facility] [place] [facility] [address] [id number], [place] [address]- 5879 Sep, [facility] [place] [facility] [address] [id number], [place] [address]- 4661 Aug, [facility] [place] [facility] [address] [id number], [place] [address]- 4134 Jul, [facility] [place] [facility] [address] [facility] [id number], [place] [address]- 7893 June, [facility] [place] [facility] [address] [facility] [id number], [place] [address]- 1348 June, [facility] [place] [facility] [address] [facility] [id number], [place] [address]- 2727 June, [facility] [place] [facility] [address] [facility] [id number], [place] [address]- 3843 June, [facility] [place] [facility] [address] [id number] [place] [address]- 7941 June, [facility] [place] [facility] [address] [id number] [place] [address]- 6276 June, [facility] [place] [facility] [address] [id number] [place] [address]- 2246 May, [facility] [place] [facility] [address] [id number] [place] [address]- 0123 May, [facility] [place] [facility] [address] [id number] [place] [address]- 0580 May, [facility] [place] [facility] [address] [id number] [place] [address]- 2106 Apr, [facility] [place] [facility] [address] [id number] [place] [address]- 1200 Apr, [facility] [place] [facility] [address] [id number] [place] [address]- 8253 Apr, [facility] [place] [facility] [address] [id number] [place] [address]- 1528 Apr, [facility] [place] [facility] [address] [id number] [place] [address]- 8667 Apr, [facility] [place] [facility] [address] [id number], [place] [address]- 3566 Apr, [facility] [place] [facility] [address] [id number], [place] [address]- 2026 Apr, [facility] [place] [facility] [address] [id number] [place] [address]- 7294 Apr, [facility] [place] [facility] [address] [id number] [place] [address]- 4233 10 Apr, 2014 [facility] [place] [facility] [address] [id number] [place] [address]- 7811 05 Apr, 2014 [facility] [place] [facility] [address] [id number] [place] [address]- 1195 Apr, [facility] [place] [facility] [address] [id number] [place] [address]- 6976 Mar, 2014 [facility] [place] [facility] [address] [id number] [place] [address]- 4856 Mar, 2014 [facility] [place] [facility] [address] [id number] [place] [address]- 7716 Mar, 2014 [facility] [place] [facility] [address] [id number] [place] [address]- 4966 Mar, 2014 [facility] [place] [facility] [address] [id number] [place] [address]- 9186 Mar, [facility] [place] [facility] [address] [facility] [id number] [place] [address]- 6103 Mar, [facility] [place] [facility] [address] [facility] [id number] [place] [address]- 4663 Feb, [facility] [place] [facility] [address] [id number] [place] [address]- 7569 Feb, [facility] [place] [facility] [address] [facility] [id number] [place] [address]- 2451 Feb, [facility] [place] [facility] [address] [facility] [id number] [place] [address]- 9160 Feb, [facility] [place] [facility] [address] [id number] [place] [address]- 8256 Jan, [facility] [place] [facility] [address] [id number] [place] [address]- 2542 Jan, [facility] [place] [facility] [address] [id number] [place] [address] 2546 Jan, [facility] [place] [facility] [address] [id number] [place] [address]- 2546 Jan, [facility] [place] [facility] [address] [facility] [id number] [place] [address]- 9508 Dec, [facility] [place] [facility] [address] [id number] [place] [address]- 4430 Dec, [facility] [place] [facility] [address] [id number] [place] [address]- 4685 Dec, [facility] [place] [facility] [address] [id number] [place] [address]- 4600 Dec, [facility] [place] [facility] [address] [id number] [place] [address]- 9890 Dec, [facility] [place] [facility] [address] [id number] [place] [address]- 7746 Dec, [facility] [place] [facility] [address] [id number] [place] [address]- 0525 Dec, [facility] [place] [facility] [address] [id number] [place] [address]- 7786 Dec, [facility] [place] [facility] [address] [id number] [place] [address]- 3433 Dec, [facility] [place] [facility] [address] [id number] [place] [address]- 4890 Dec, [facility] [place] [facility] [address] [id number] [place] [address]- 2133 Dec, [facility] [place] [facility] [address] [id number], [place] [address]- 9348 Nov, [facility] [place] [facility] [address] [id number], [place] [address]- 9793 Nov, [facility] [place] [facility] [address] [id number] [place] [address]- 2397 Nov, [facility] [place] [facility] [address] [id number], [place] [address]- 7788 Nov, [facility] [place] [facility] [address] [id number], [place] [address]- 5701 Nov, [facility] [place] [facility] [address] [id number] [place] [address]- 4839 15 Nov, 2013 [facility] [place] [facility] [address] [id number] [place] [address]- 2067 15 Nov, 2013 [facility] [place] [facility] [address] [id number] [place] [address]- 8884 15 Nov, 2013 [facility] [place] [facility] [address] [id number] [place] [address]- 6969 15 Nov, 2013 [facility] [place] [facility] [address] [id number] [place] [address]- 7442 14 Nov, 2013 [facility] [place] [facility] [address] [id number] [place] [address]- 4339 14 Nov, 2013 [facility] [place] [facility] [address] [id number] [place] [address]- 1810 14 Nov, 2013 [facility] [place] [facility] [address] [id number] [place] [address]- 5502 14 Nov, 2013 [facility] [place] [facility] [address] [id number] [place] [address]- 7915 13 Nov, 2013 [facility] [place] [facility] [address] [id number] [place] [address]- 8286 13 Nov, 2013 [facility] [place] [facility] [address] [id number] [place] [address]- 6686 11 Nov, 2013 [facility] [place] [facility] [address] [id number] [place] [address]- 8133 11 Nov, 2013 [facility] [place] [facility] [address] [id number], [place] [address]- 7359 07 Nov, 2013 [facility] [place] [facility] [address] [id number] [place] [address]- 4062 07 Nov, 2013 [facility] [place] [facility] [address] [id number] [place] [address]- 5213 07 Nov, 2013 [facility] [place] [facility] [address] [id number], [place] [address]- 2525 07 Nov, 2013 [facility] [place] [facility] [address] [id number] [place] [address]- 2547 30 Oct, 2013 [facility] [place] [facility] [address] [id number] [place] [address] 2549 30 Oct, 2013 [facility] [place] [facility] [address] [id number] [place] [address]- 2545 26 Oct, 2013 [facility] [place] [facility] [address] [id number] [place] [address]- 6636 26 Oct, 2013 [facility] [place] [facility] [address] [id number] [place] [address]- 6392 22 Oct, 2013 [facility] [place] [facility] [address] [id number] [place] [address]- 5414 22 Oct, 2013 [facility] [place] [facility] [address] [id number] [place] [address]- 2675 18 Oct, 2013 [facility] [place] [facility] [address] [id number] [place] [address]- 6214 18 Oct, 2013 [facility] [place] [facility] [address] [id number] [place] [address]- 8288 18 Oct, 2013 [facility] [place] [facility] [address] [id number] [place] [address]- 2484 18 Oct, 2013 [facility] [place] [facility] [address] [id number] [place] [address]- 8927 12 Oct, 2013 [facility] [place] [facility] [address] [id number] [place] [address]- 2540 12 Oct, 2013 [facility] [place] [facility] [address] [id number] [place] [address]- 2547 Oct, 2013 [facility] [place] [facility] [address] [id number] [place] [address]- 2544 Oct, 2013 [facility] [place] [facility] [address] [id number] [place] [address]- 5575 Sep, [facility] [place] [facility] [address] [id number] [place] [address]- 3513 Sep, [facility] [place] [facility] [address] [id number] [place] [address]- 9171 Sep, [facility] [place] [facility] [address] [id number] [place] [address]- 7510 Sep, [facility] [place] [facility] [address] [id number] [place] [address]- 0560 Sep, [facility] [place] [facility] [address] [id number] [place] [address]- 2088 Sep, [facility] [place] [facility] [address] [id number] [place] [address]- 5507 Sep, [facility] [place] [facility] [address] [id number] [place] [address]- 8701 Sep, [facility] [place] [facility] [address] [id number] [place] [address]- 8479 Sep, [facility] [place] [facility] [address] [id number] [place] [address]- 2966 Sep, [facility] [place] [facility] [address] [id number] [place] [address]- 2179 Sep, [facility] [place] [facility] [address] [id number] [place] [address]- 0228 Sep, [facility] [place] [facility] [address] [id number] [place] [address]- 9533 Sep, [facility] [place] [facility] [address] [id number] [place] [address]- 8147 Sep, [facility] [place] [facility] [address] [id number] [place] [address]- 9801 Sep, [facility] [place] [facility] [address] [id number] [place] [address]- 1655 Sep, [facility] [place] [facility] [address] [id number] [place] [address]- 0151 Sep, [facility] [place] [facility] [address] [id number] [place] [address]- 6056 Sep, [facility] [address] [id number] [place] [address]- 0091 Aug, [facility] [place] [facility] [address] [id number] [place] [address]- 2719 Aug, [facility] [place] [facility] [address] [id number] [place] [address]- 4422 Aug, [facility] [place] [facility] [address] [id number] [place] [address]- 4706 Aug, [facility] [place] [facility] [address] [id number] [place] [address]- 6785 Aug, [facility] [place] [facility] [address] [id number] [place] [address]- 0533 Aug, [facility] [place] [facility] [address] [id number] [place] [address]- 9509 Jul, [facility] [place] [facility] [address] [id number] [place] [address]- 2082 Jul, [facility] [place] [facility] [address] [id number] [place] [address]- 7126 Jul, [facility] [address] [id number] [place] [address]- 2042 Jul, [facility] [place] [facility] [address] [id number] [place] [address]- 0544 June, [facility] [place] [facility] [address] [id number] [place] [address]- 4335 June, [facility] [place] [facility] [address] [id number] [place] 8599 June, [facility] [place] [facility] [address] [id number] [place] [address]- 8411 June, [facility] [place] [facility] [address] [id number] [place] [address]- 7082 June, [facility] [place] [facility] [address] [id number] [place] [address]- 1677 June, [facility] [place] [facility] [address] [id number] [place] [address]- 8391 June, [facility] [place] [facility] [address] [id number] [place] [address]- 6485 May, [facility] [place] [facility] [address] [id number] [place] [address]- 4423 May, [facility] [place] [facility] [address] [id number] [place] [address]- 9919 May, [facility] [place] [facility] [address] [id number] [place] [address]- 0650 May, [facility] [place] [facility] [address] [id number] [place] [address]- 4284 May, [facility] [place] [facility] [address] [id number] [place] [address]- 0355 May, [facility] [place] [facility] [address] [id number] [place] [address]- 4640 Apr, [facility] [place] [facility] [address] [id number] [place] [address]- 9916 31 Apr, 2013 [facility] [place] [facility] [address] [id number] [place] [address]- 5052 28 Apr, 2013 [facility] [place] [facility] [address] [id number] [place] [address]- 8030 28 Apr, 2013 [facility] [place] [facility] [address] [id number] [place] [address]- 8800 14 Apr, 2013 [facility] [place] [facility] [address] [id number] [place] [address]- 1937 14 Apr, 2013 [facility] [place] [facility] [address] [id number] [place] 3395 12 Apr, 2013 [facility] [place] [facility] [address] [id number] [place] [address]- 4452 Apr, [facility] [place] [facility] [address] [id number] [place] [address]- 6367 Apr, [facility] [place] [facility] [address] [id number] [place] [address]- 0562 Apr, [facility] [place] [facility] [address] [id number] [place] [address]- 4323 Apr, [facility] [place] [facility] [address] [id number] [place] [address]- 6721 Apr, [facility] [place] [facility] [address] [id number] [place] [address] Apr, [facility] [place] [facility] [address] [id number] [place] [address] Apr, [facility] [place] [facility] [address] [id number] [place] [address] Mar, [facility] [place] [facility] [address] [id number] [place] [address] Mar, [facility] [place] [facility] [address] [id number] [place] [address] Mar, [facility] [place] [facility] [address] [facility] [id number] [place] [address] Feb, [facility] [place] [facility] [address] [id number] [place] [address] Feb, [facility] [place] [facility] [address] [id number] [place] [address] Feb, [facility] [place] [facility] [address] [id number] [place] [address] Feb, [facility] [place] [facility] [address] [id number] [place] [address] Feb, [facility] [place] [facility] [address] [id number] [place] [address] Feb, [facility] [place] [facility] [address] [id number] [place] [address] Feb, [facility] [address] [id number] [place] [address] Feb, [facility] [place] [facility] [address] [id number] [place] [address] Feb, [facility] [address] [id number] [place] [address] 98[address] Feb, [facility] [address] [id number] [place] [address] Jan, [facility] [place] [facility] [address] [id number] [place] [address] Jan, [facility] [address] [id number] [place] [address] Jan, [facility] [address] [id number] [place] [address] Jan, [facility] [address] [id number] [place] [address] Jan, [facility] [address] [id number] [place] [address] Jan, [facility] [address] [id number] [place] [address]66 Jan, [facility] [place] [facility] [address] [id number] [place] [address] Jan, [facility] [place] [facility] [address] [id number] [place] [address] Jan, [facility] [place] [facility] [address] [id number] [place] [address] Jan, [facility] [place] [facility] [address] [id number] [place] [address] 17 Jan, 2013 [facility] [place] [facility] [address] [id number] [place] [address] 17 Jan, 2013 [facility] [place] [facility] [address] [id number] [place] [address] 16 Jan, 2013 [facility] [place] [facility] [address] [id number] [place] [address] Jan, [facility] [place] [facility] [address] [facility] [id number] [place] [address] Jan, [facility] [place] [facility] [address] [id number] [place] [address] Jan, [facility] [place] [facility] [address] [id number] [place] [address] Jan, [facility] [place] [facility] [address] [id number] [place] [address] Jan, [facility] [place] [facility] [address] [id number] [place] [address]- [address] Jan, [facility] [place] [facility] [address] [id number] [place] [address] Jan, [facility] [place] [facility] [address] [id number] [place] [address]30 Jan, [facility] [place] [facility] [address] [id number] [place] [address]- [address] Dec, [facility] [place] [facility] [address] [id number], [place] [address] Dec, [facility] [place] [facility] [address] [id number], [place] [address]- [address] Dec, [facility] [place] [facility] [address] [id number] [place] [address]- [address] Dec, [facility] [place] [facility] [address] [facility] [id number], [place] [address]- [address] Dec, [facility] [place] [facility] [address] [facility] [id number], [place] [address]- [address] Dec, [facility] [place] [facility] [address] [id number] [place] [address]- 164[address] Dec, [facility] [address] [id number] [place] [address]- 2974 Dec, [facility] [place] [facility] [address] [id number] [place] [address]- [address]37 Dec, [facility] [place] [facility] [address] [id number] [place] [address]- 9585 Dec, [facility] [place] [facility] [address] [id number] [place] [address]- [address]54 Nov, [facility] [place] [facility] [address] [id number] [place] [address]- [address]14 Nov, [facility] [place] [facility] [address] [id number] [place] [address]- [address]294 Nov, [facility] [place] [facility] [address] [id number] [place] [address]- [address]158 Nov, [facility] [place] [facility] [address] [id number] [place] [address] 7620 Nov, [facility] [place] [facility] [address] [id number] [place] [address]- 8932 Nov, [facility] [place] [facility] [address] [id number] [place] [address]- [address]003 Nov, [facility] [place] [facility] [address] [id number] [place] [address]353 Nov, [facility] [place] [facility] [address] [id number] [place] [address]- [address]346 10 Nov, 2012 [facility] [place] [facility] [address] [id number] [place] [address] Nov, [facility] [place] [facility] [address] [id number] [place] [address]- 6689 Oct, [facility] [place] [facility] [address] [id number] [place] [address] Oct, [facility] [place] [facility] [address] [id number] [place] [address]- 6826 Oct, [facility] [place] [facility] [address] [id number] [place] [address]- 1433 Oct, [facility] [place] [facility] [address] [id number] [place] [address]- [address]238 Oct, [facility] [place] [facility] [address] [id number] [place] [address] Sep, [facility] [address] [id number] [place] [address]- 5747 Sep, [facility] [place] [facility] [address] [id number] [place] [address]- 47[address] Aug, [facility] [place] [facility] [address] [id number] [place] [address]- 2150 Aug, [facility] [address] [id number] [place] [address] Aug, [facility] [place] [facility] [address] [id number] [place] [address]14 Aug, [facility] [place] [facility] [address] [id number] [place] [address]85 Aug, [facility] [place] [facility] [address] [id number] [place] [address]006 Aug, [facility] [place] [facility] [address] [id number] [place] [address]605 Aug, [facility] [place] [facility] [address] [id number] [place] [address] 1609 Jul, [facility] [place] [facility] [address] [id number] [place] [address]- [address]35 Jul, [facility] [place] [facility] [address] [id number] [place] [address] 5202 June, [facility] [place] [facility] [address] [id number] [place] [address]4 June, [facility] [address] [id number] [place] [address] 1554 June, [facility] [address] [id number] [place] [address] June, [facility] [address] [id number] [place] [address] 2949 June, [facility] [address] [id number] [place] [address] 0453 June, [facility] [address] [id number] [place] [address] 8793 June, [facility] [address] [id number] [place] [address]- 9954 June, [facility] [address] [id number] [place] [address]- 8771 June, [facility] [address] [id number] [place] [address]- 8881 June, [facility] [address] [id number] [place] [address] 4994 June, [facility] [address] [id number] [place] [address]- 1589 May, [facility] [address] [id number] [place] [address]- 6254 May, [facility] [place] [facility] [address] [id number] [place] [address]- 3874 May, [facility] [address] [id number] [place] [address] May, [facility] [place] [facility] [address] [id number] [place] [address]- 9946 Apr, [facility] [place] [facility] [address] [id number] [place] [address]- 2477 Apr, [facility] [place] [facility] [address] [id number] [place] [address]- 1626 Apr, [facility] [address] [id number] [place] [address]- 6096 Mar, [facility] [place] [facility] [address] [id number] [place] [address]- 2546 Mar, [facility] [address] [id number] [place] [address]- 8196 29 Feb, 2012 [facility] [place] [facility] [address] [id number] [place] [address] 1962 Feb, [facility] [address] [id number] [place] [address]- 4786 Feb, [facility] [address] [id number] [place] [address]- 8216 Feb, [facility] [address] [id number] [place] [address]- 1838 16 Feb, 2012 [facility] [address] [id number] [place] [address]- 1765 14 Feb, 2012 [facility] [address] [id number] [place] [address]- 4501 Feb, [facility] [address] [id number] [place] [address]- 7526 31 Jan, 2012 [facility] [address] [id number] [place] [address]- 9716 31 Jan, 2012 [facility] [place] [facility] [address] [id number] [place] [address]- 5878 28 Jan, 2012 [facility] [place] [facility] [address] [id number] [place] [address]- 7956 17 Jan, 2012 [facility] [place] [facility] [address] [id number] [place] [address]- 1026 17 Jan, 2012 [facility] [place] [facility] [address] [id number] [place] [address] 7160 Jan, [facility] [place] [facility] [address] [id number] [place] [address]- 1011 Jan, [facility] [place] [facility] [address] [id number] [place] [address]- 2736 Jan, [facility] [place] [facility] [address] [facility] [id number] [place] [address]- 6538 Jan, [facility] [place] [facility] [address] [id number] [place] [address] Jan, [facility] [place] [facility] [address] [id number] [place] [address]- 9241 Jan, [facility] [place] [facility] [address] [id number] [place] [address]- 3160 Dec, [facility] [place] [facility] [address] [id number] [place] [address]- 0212 Dec, [facility] [place] [facility] [address] [id number] [place] [address]- 5721 Dec, [facility] [place] [facility] [address] [id number] [place] [address]- 4024 Dec, [facility] [place] [facility] [address] [facility] [id number] [place] [address]- 9778 Nov, [facility] [place] [facility] [address] [id number], [place] [address]- 6[address] Nov, [facility] [place] [facility] [address] [id number], [place] [address]- 1229 Nov, [facility] [place] [facility] [address] [id number] [place] [address]- 1093 Oct, [facility] [place] [facility] [address] [id number], [place] [address]- 9565 24 Oct, 2011 [facility] [place] [facility] [address] [id number], [place] [address]- 6492 Oct, [facility] [place] [facility] [address] [id number] [place] [address]- 2712 10 Oct, 2011 [facility] [place] [facility] [address] [id number] [place] [address]- 0806 07 Oct, 2011 [facility] [place] [facility] [address] [id number] [place] [address] 2546 04 Oct, 2011 [facility] [place] [facility] [address] [id number] [place] [address] 2546 04 Oct, 2011 [facility] [place] [facility] [address] [id number] [place] [address] 2546 29 Sep, 2011 [facility] [place] [facility] [address] [id number] [place] [address]- 7366 Sep, [facility] [place] [facility] [address] [id number] [place] [address]- 2297 Sep, [facility] [place] [facility] [address] [id number] [place] [address]- 7484 Sep, [facility] [place] [facility] [address] [id number] [place] [address]- 8919 Sep, [facility] [place] [facility] [address] [id number] [place] [address]- 1419 30 Aug, 2011 [facility] [place] [facility] [address] [id number] [place] [address]- 1118 Aug, [facility] [place] [facility] [address] [id number] [place] [address] 2546 17 Aug, 2011 [facility] [place] [facility] [address] [id number] [place] [address] 2544 16 Aug, 2011 [facility] [place] [facility] [address] [id number] [place] [address]- 2866 13 Aug, 2011 [facility] [place] [facility] [address] [id number] [place] [address] 2546 Aug, [facility] [place] [facility] [address] [id number] [place] [address]- 6135 Aug, [facility] [place] [facility] [address] [id number] [place] [address]- 5694 Jul, [facility] [place] [facility] [address] [id number] [place] [address]- 8650 Jul, [facility] [place] [facility] [address] [id number] [place] [address]- 7352 Jul, [facility] [place] [facility] [address] [id number] [place] [address]- 7747 Jul, [facility] [place] [facility] [address] [id number] [place] [address]- 8287 Jul, [facility] [place] [facility] [address] [id number] [place] [address]- 4479 Jul, [facility] [place] [facility] [address] [id number] [place] [address]- 5062 Jul, [facility] [place] [facility] [address] [id number] [place] [address]- 7218 Jul, [facility] [place] [facility] [address] [id number] [place] [address]- 5168 Jul, [facility] [place] [facility] [address] [id number] [place] [address]- 6936 June, [facility] [place] [facility] [address] [id number] [place] [address]- 8224 June, [facility] [place] [facility] [address] [id number] [place] [address]- 1519 June, [facility] [place] [facility] [address] [id number] [place] [address]- 7663 June, [facility] [place] [facility] [address] [id number] [place] [address]- 7477 June, [facility] [place] [facility] [address] [id number] [place] [address]- 7440 June, [facility] [place] [facility] [address] [id number] [place] [address]- 2546 June, [facility] [place] [facility] [address] [id number] [place] [address]- 3003 June, [facility] [place] [facility] [address] [id number] [place] [address]- 8986 May, [facility] [place] [facility] [address] [id number] [place] [address]- 4616 May, [facility] [place] [facility] [address] [id number] [place] [address]- 1437 May, [facility] [place] [facility] [address] [id number] [place] [address]- 0543 May, [facility] [place] [facility] [address] [id number] [place] [address]- 0077 May, [facility] [place] [facility] [address] [id number] [place] May, [facility] [place] [facility] [address] [id number] [place] [address]- 1368 May, [facility] [place] [facility] [address] [id number] [place] [address]- 0441 Apr, [facility] [place] [facility] [address] [id number] [place] [address]- 7593 Apr, [facility] [place] [facility] [address] [id number] [place] [address]- 5730 Apr, [facility] [place] [facility] [address] [id number] [place] [address]- 0158 Apr, [facility] [place] [facility] [address] [id number] [place] [address]- 7504 Apr, [facility] [place] [facility] [address] [id number] [place] [address]- 6826 Apr, [facility] [place] [facility] [address] [id number] [place] [address]- 8491 Apr, [facility] [place] [facility] [address] [id number] [place] [address]- 5916 20 Mar, 2011 [facility] [place] [facility] [address] [id number] [place] [address]- 6346 20 Mar, 2011 [facility] [place] [facility] [address] [id number] [place] [address] 2546 14 Mar, 2011 [facility] [place] [facility] [address] [id number] [place] [address] 2546 13 Mar, 2011 [facility] [place] [facility] [address] [id number] [place] [address] 2546 Mar, [facility] [place] [facility] [address] [id number] [place] [address]- 7626 Mar, [facility] [place] [facility] [address] [id number] [place] [address]- 2659 Mar, [facility] [place] [facility] [address] [id number] [place] [address]- 2063 Feb, [facility] [place] [facility] [address] [id number] [place] [address]- 5651 Feb, [facility] [place] [facility] [address] [id number] [place] [address]- 8745 Feb, [facility] [place] [facility] [address] [id number] [place] [address]- 2116 Feb, [facility] [place] [facility] [address] [id number] [place] [address]- 5946 Feb, [facility] [place] [facility] [address] [id number] [place] [address]- 6273 Feb, [facility] [place] [facility] [address] [id number] [place] [address]- 2726 Feb, [facility] [place] [facility] [address] [id number] [place] [address]- 8509 Feb, [facility] [place] [facility] [address] [id number] [place] [address]- 8786 Feb, [facility] [address] [id number] [place] [address] Feb, [facility] [place] [facility] [address] [id number] [place] [address]- 0579 Jan, [facility] [place] [facility] [address] [id number] [place] [address]- 2716 Jan, [facility] [place] [facility] [address] [id number] [place] [address]- 6242 Jan, [facility] [place] [facility] [address] [id number] [place] [address]- 0725 Jan, [facility] [place] [facility] [address] [id number] [place] [address]- 7186 Jan, [facility] [place] [facility] [address] [id number] [place] [address]- 6527 Jan, [facility] [place] [facility] [address] [id number] [place] [address]- 7046 Jan, [facility] [place] [facility] [address] [id number] [place] [address]- 7236 Jan, [facility] [place] [facility] [address] [id number] [place] [address]- 6201 Jan, [facility] [place] [facility] [address] [id number] [place] [address]- 1935 Jan, [facility] [place] [facility] [address] [id number] [place] [address]- 9059 Jan, [facility] [place] [facility] [address] [id number] [place] [address]- 9167 Dec, [facility] [place] [facility] [address] [id number] [place] [address]- 8688 Dec, [facility] [place] [facility] [address] [id number] [place] [address]- 1725 Dec, [facility] [place] [facility] [address] [id number] [place] [address]- 3545 16 Dec, 2010 [facility] [address] [id number] [place] [address]- 0957 14 Dec, 2010 [facility] [place] [facility] [address] [id number] [place] [address]- 1284 09 Dec, 2010 [facility] [place] [facility] [address] [id number] [place] [address]- 6132 08 Dec, 2010 [facility] [place] [facility] [address] [id number] [place] [address]- 6459 07 Dec, 2010 [facility] [place] [facility] [address] [id number] [place] [address]- 2723 Dec, [facility] [place] [facility] [address] [id number] [place] [address]- 2532 Nov, [facility] [place] [facility] [address] [id number] [place] [address]- 5736 Nov, [facility] [place] [facility] [address] [id number] [place] [address]- 1227 27 Nov, 2010 [facility] [place] [facility] [address] [id number] [place] [address]- 1098 24 Nov, 2010 [facility] [place] [facility] [address] [id number] [place] [address]- 8045 24 Nov, 2010 [facility] [place] [facility] [address] [id number] [place] [address]- 4186 13 Nov, 2010 [facility] [place] [facility] [address] [id number] [place] [address]- 6147 Aug, [facility] [place] [facility] [address] [id number] [place] [address]- 4550 14 Feb, 2010 [facility] [place] [facility] [address] [id number] [place] [address]- 5284 14 Jan, 2010 [facility] [place] [facility] [address] [id number] [place] [address] Jan, [facility] [address] [id number] [address]- 9437 Jan, [facility] [id number] [address]608 Jan, [facility] [id number] 9257 Jan, [facility] [id number], [place] [address]- 7456 Dec, [facility] [id number] 1903 Dec, [facility] [id number] 4519 Dec, [facility] [id number] [place] [address]- 4467 Dec, [facility] [id number], [place] [address]- 2206 Nov, [facility] [id number], [place] [address]- 9181 Nov, [facility] [address] [id number], [place] [address]- 8976 Nov, IMMUNIZATIONS No Known Immunizations SOCIAL HISTORY Never Assessed REASON FOR VISIT Unable to contact/Medication refill request PLAN OF CARE VITAL SIGNS MEDICATIONS Unknown [...]
--- OUTSIDE RECORDS SUMMARY | 2018-01-13 20:54 | XMS REPORT ---
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 Active 517701614 Problem Hypertension I10 Active 58482870 Problem Arthritis M19.90 Active 8915971 Problem 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 Active 20498777 Problem Anxiety F41.9 Active 43114617 Problem Unspecified episodic mood disorder F39 Active 66535971 Problem Left hip pain M25.552 Active 16442699 ALLERGIES No Information ENCOUNTERS Encounter Location Date Diagnosis [facility] [address] [facility] [id number] [address] Aug, [facility] [address] [id number] [id number] Aug, [facility] [address] [facility] [id number] [address] Aug, Arthritis M19.90 [facility] [address] [address] Aug, [facility] [id number] [place] [address] 64433- 3632 Aug, Obesity (BMI 30.0-34.9) E66.9 ; Unspecified episodic mood disorder F39 and Hypertension I10 [facility] [id number] [place] [address] 46946- 0090 Aug, Unspecified episodic mood disorder F39 [facility] [id number] [place] [address] 72204- 7652 Aug, [facility] [id number] [place] [address] 08739- 6466 Jul, Unspecified episodic mood disorder F39 [facility] [id number] [place] [address] 47960- 5339 Jul, [facility] [id number] [place] [address] 93739- 9066 Jul, Arthritis M19.90 [facility] [id number] [place] [address] 25741- 5634 Jul, Left hip pain M25.552 ; Hypertension I10 ; Other obesity due to excess calories E66.09 and Body mass index (BMI) of 34.0-34.9 in adult Z68.34 [facility] [id number] [place] [address] 82320- 8814 Jul, Unspecified episodic mood disorder F39 [facility] [address] [address] June, Gastroesophageal reflux disease, esophagitis presence not specified K21.9 [facility] [id number] [place] [address] 07235- 9283 June, [facility] [id number] [place] [address] 94897- 6139 June, [facility] [address] [address] 5[address] June, Arthritis M19.90 [facility] [address] [address] June, [facility] [address] [address] 2[address] June, [facility] [address] [address] 3816 June, Unspecified episodic mood disorder F39 [facility] [address] [address] 1981 May, Unspecified episodic mood disorder F39 [facility] [address] [address] 4033 May, [facility] [id number] [place] [address] 89431- 3249 May, Arthritis M19.90 [facility] [address] [address] May, Dysuria R30.0 ; Abscess L02.91 and Acute cystitis without hematuria N30.00 [facility] [address] [address] 6411 May, 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 ; Unspecified episodic mood disorder F39 ; Combined drug dependence excluding opioids, 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 ; Anxiety F41.9 and Other psychoactive substance dependence, 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 [facility] [address] [address] May, [facility] [id number] [place] [address] 84258- 7371 May, 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 ; Unspecified episodic mood disorder F39 ; Combined drug dependence excluding opioids, 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 ; Other psychoactive substance dependence, 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 and Anxiety F41.9 [facility] [id number] [place] [address] 51613- 2740 May, Other chronic pain G89.29 ; Left hip pain M25.552 ; Hypertension I10 ; 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, 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 and Unspecified episodic mood disorder F39 [facility] [id number] [place] [address] 88198- 1050 Apr, [facility] [id number] [place] [address] 79386 -6312 Apr, Neck pain M54.2 ; Left hip pain M25.552 and Fall, initial encounter W19.XXXA [facility] [address] [address] Apr, Unspecified episodic mood disorder F39 ; Combined drug dependence excluding opioids, 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 ; Anxiety F41.9 ; Other psychoactive substance dependence, 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 and 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 [facility] [id number] [place] [address] 46302- 6783 Apr, [facility] [id number] [place] [address] 22676- 8737 Apr, Arthritis M19.90 and Unspecified episodic mood disorder F39 [facility] [id number] [place] [address] 04779- 0689 Apr, Unspecified episodic mood disorder F39 [facility] [id number] [place] [address] 21362- 3264 Apr, [facility] [id number] [place] [address] 39468- 9009 08 Apr, [address] [place] [id number] [place] [address] 20812- 7995 07 Apr, 2017 Unspecified episodic mood disorder F39 ; Combined drug dependence excluding opioids, 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 ; Anxiety F41.9 ; Other psychoactive substance dependence, 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 and 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 [facility] [id number] [place] [address] 55203- 3836 Mar, Unspecified episodic mood disorder F39 [facility] [id number] [place] [address] 36556- 6976 Mar, Gastroesophageal reflux disease, esophagitis presence not specified K21.9 [facility] [id number] [place] [address] 87368- 3536 Mar, Arthritis M19.90 and Unspecified episodic mood disorder F39 [facility] [id number] [place] [address] 77784- 6491 Feb, [facility] [id number] [place] [address] 11328- 0116 Feb, [facility] [id number] [place] [address] 73923- 2235 Feb, [facility] [id number] [place] [address] 25471- 7036 Feb, Arthritis M19.90 [facility] [id number] [place] [address] 53585- 7175 Feb, Non-pressure chronic ulcer of right calf, 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 ; Unspecified episodic mood disorder F39 and Left hip pain M25.552 [facility] [id number] [place] [address] 69735- 2026 Feb, [facility] [id number] [place] [address] 49101- 2546 Feb, [facility] [id number] [place] [address] 68168 2546 Jan, Arthritis M19.90 [facility] [id number] [place] [address] 51279- 2546 Jan, Left hip pain M25.552 and Non-pressure chronic ulcer of right calf, 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 [facility] [id number] [place] [address] 86588- 3040 Jan, Chronic hepatitis C without hepatic coma B18.2 [facility] [id number] [place] [address] 62754- 5116 Jan, Encounter for immunization Z23 ; Venous insufficiency ( chronic) (peripheral) I87.2 ; Non-pressure chronic ulcer of unspecified calf limited to breakdown of skin L97.201 and Gastroesophageal reflux disease, esophagitis presence not specified K21.9 [facility] [id number] [place] [address] 78232- 6660 Jan, [facility] [id number] [place] [address] 64535- 5169 Jan, Chronic hepatitis C without hepatic coma B18.2 and Encounter for immunization Z23 [facility] [id number] [place] [address] 45965- 3097 Jan, Arthritis M19.90 [facility] [id number] [place] [address] 13249- 9282 Jan, [facility] [id number] [place] [address] 97727- 5265 Dec, [facility] [id number] [place] [address] 01501- 8949 Dec, Unspecified episodic mood disorder F39 [facility] [id number] [place] [address] 30793- 5204 Dec, Arthritis M19.90 [facility] [id number] [place] [address] 61622- 0838 Dec, Arthritis M19.90 [facility] [id number] [place] [address] 95874- 0447 Nov, [facility] [id number] [place] [address] 03292- 8102 Nov, [facility] [id number] [place] [address] 95341- 5806 Nov, Other psychoactive substance dependence, 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 ; 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, 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 and Chronic hepatitis C without hepatic coma B18.2 [facility] [id number] [place] [address] 30232- 7337 Nov, Arthritis M19.90 [facility] [id number] [place] [address] 59088 -1666 Oct, Partial thickness burn of abdomen, initial encounter T21.22XA [facility] [id number] [place] [address] 67333- 2397 Oct, [facility] [id number] [place] [address] 35711- 7647 Sep, Arthritis M19.90 [facility] [id number] [place] [address] 80923- 5065 Sep, [facility] [id number] [place] [address] 38865- 0454 Sep, [facility] [id number] [place] [address] 64827- 9273 Sep, Unspecified episodic mood disorder F39 ; Chronic hepatitis C without hepatic coma B18.2 and Left hip pain M25.552 [facility] [id number] [place] [address] 47132- 5721 Sep, Arthritis M19.90 and Left hip pain M25.552 [facility] [id number] [place] [address] 17588- 7129 Aug, [facility] [id number] [place] [address] 95858- 9697 Aug, [facility] [id number] [place] [address] 49600- 1983 Aug, Chronic hepatitis C without hepatic coma B18.2 [facility] [id number] [place] [address] 42124- 9313 Aug, [facility] [id number] [place] [address] 59242- 9966 Aug, Chronic hepatitis C without hepatic coma B18.2 [facility] [id number] [place] [address] 31511- 5597 Aug, 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, 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 [facility] [id number] [place] [address] 97695- 1787 Aug, [facility] [id number] [place] [address] 62537- 4869 Aug, Chronic hepatitis C without hepatic coma B18.2 and Hypertension I10 [facility] [id number] [place] [address] 12756- 9459 Jul, [facility] [id number] [place] [address] 62017- 9149 June, [facility] [id number] [place] [address] 91583- 2288 Apr, Fibromyalgia M79.7 ; Left hip pain M25.552 and Decubitus ulcer of sacral region, stage 1 L89.151 [facility] [id number] [place] [address] 77586- 8335 Apr, [facility] [id number] [place] [address] 52808- 8721 Apr, [facility] [id number] [place] [address] 87567- 0085 Feb, [facility] [id number] [place] [address] 61314- 1013 Dec, Anxiety F41.9 ; Combined drug dependence excluding opioids, 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 and Unspecified episodic mood disorder F39 [facility] [id number] [place] [address] 07638- 6104 Dec, [facility] [address] [place] [address]- 2332 Nov, [facility] [id number] [place] [address] 97457- 2110 Nov, [facility] [id number] [place] [address] 02597- 3902 Nov, 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 and Anxiety F41.9 [facility] [id number] [place] [address] 96975- 8683 Oct, [facility] [id number] [place] [address] 50594 -8207 14 Oct, 2015 Open wound of left thigh, initial encounter S71.102A [facility] [id number] [place] [address] 72098- 9439 Oct, [facility] [id number] [place] [address] 12543- 4396 Sep, Unspecified episodic mood disorder F39 ; Other disorder of impulse control 312.39 ; Combined drug dependence excluding opioids, 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 and Anxiety F41.9 [facility] [id number] [place] [address] 94469- 7327 Sep, Other disorder of impulse control 312.39 ; Combined drug dependence excluding opioids, 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 ; Anxiety F41.9 and Unspecified episodic mood disorder F39 [facility] [address] [place] [address] 68624- 5454 Sep, Other chronic pain G89.29 [facility] [id number] [place] [address] 00823- 1214 Sep, [facility] [id number] [place] [address] 69442- 4009 Sep, [facility] [address] [place] [address] 77436- 6289 Aug, [facility] [id number] [place] [address] 31357- 9797 Aug, [facility] [address] [address]- 7744 Aug, [facility] [id number] [place] [address] 68307- 8844 Jul, [facility] [id number] [place] [address] 71320- 2861 Jul, [facility] [id number] [place] [address] 90331- 6434 Jul, [facility] [id number] [place] [address] 99965- 1001 Jul, Arthritis M19.90 ; Chronic hepatitis C without hepatic coma B18.2 and Left hip pain M25.552 [facility] [id number] [place] [address] 33657- 0234 Jul, Left knee pain M25.562 [facility] [id number] [place] [address] 43900- 2126 Jul, Combined drug dependence excluding opioids, 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 ; Anxiety F41.9 ; Other disorder of impulse control 312.39 and Unspecified episodic mood disorder F39 [facility] [address] [place] [address] 06638- 8806 Jul, Left knee pain M25.562 [facility] [address] [place] [address] 61286- 5790 Jul, Left knee pain M25.562 and Left hip pain M25.552 [facility] [address] [place] [address] 98974- 0525 Jul, [facility] [id number] [place] [address] 81645- 0459 June, [facility] [address] [place] [address] 63779- 5095 June, Combinations of drug dependence excluding opioid type drug, unspecified abuse 304.80 ; Other disorder of impulse control 312.39 ; Unspecified episodic mood disorder F39 and Anxiety F41.9 [facility] [id number] [place] [address] 53521- 5029 June, Other fatigue R53.83 ; Headache R51 and Left knee pain M25.562 [facility] [id number] [place] [address] 11995- 5424 June, Unspecified episodic mood disorder F39 ; Combinations of drug dependence excluding opioid type drug, unspecified abuse 304.80 ; Other disorder of impulse control 312.39 and Anxiety F41.9 [place] [id number] [place] [address] 25181- 0583 June, Anxiety F41.9 [place] [id number] [place] [address] 16855- 8105 June, Pain in left knee M25.562 [place] [id number] [place] [address] 35061- 4111 June, Anxiety F41.9 and Combinations of drug dependence excluding opioid type drug, unspecified abuse 304.80 [place] [id number] [place] [address] 17720- 4877 June, Unspecified episodic mood disorder 296.90 ; Combinations of drug dependence excluding opioid type drug, unspecified abuse 304.80 and Other disorder of impulse control 312.39 [place] [id number] [place] [address] 93513- 4758 June, Anxiety F41.9 and Unspecified episodic mood disorder 296.90 [place] [id number] [place] [address] 96380- 3812 May, Arthritis M19.90 [facility] [id number] [place] [address] 81442- 7498 May, Arthritis M19.90 [facility] [id number] [place] [address] 53634- 7308 May, Anxiety F41.9 ; Combinations of drug dependence excluding opioid type drug, unspecified abuse 304.80 and Other disorder of impulse control 312.39 [place] [address] [place] [address] 12768- 0642 18 May, 2015 Left knee pain M25.562 [place] [id number] [place] [address] 36541- 3904 14 May, 2015 Arthritis M19.90 [place] [id number] [place] [address] 60441- 8973 May, [place] [id number] [place] [address] 55310- 8673 May, Anxiety F41.9 ; Unspecified episodic mood disorder 296.90 ; Combinations of drug dependence excluding opioid type drug, unspecified abuse 304.80 and Other disorder of impulse control 312.39 [place] [id number] [place] [address] 61811- 8530 May, Left knee pain M25.562 [place] [address] [place] [address] 82865- 2138 11 May, 2015 Left knee pain M25.562 ; Combinations of drug dependence excluding opioid type drug, unspecified abuse 304.80 ; Other disorder of impulse control 312.39 ; Fibromyalgia M79.7 ; Hypertension I10 ; Unspecified episodic mood disorder 296.90 and Left hip pain M25.552 [place] [address] [place] [address] 64585- 9327 May, Unspecified episodic mood disorder 296.90 ; Other disorder of impulse control 312.39 ; Combinations of drug dependence excluding opioid type drug, unspecified abuse 304.80 and Anxiety F41.9 [place] [id number] [place] [address] 02504- 3539 May, Left knee pain M25.562 ; Combinations of drug dependence excluding opioid type drug, unspecified abuse 304.80 ; Other disorder of impulse control 312.39 ; Fibromyalgia M79.7 ; Hypertension I10 ; Unspecified episodic mood disorder 296.90 and Left hip pain M25.552 [facility] [id number] [place] [address] May, Anxiety F41.9 ; Unspecified episodic mood disorder 296.90 ; Other disorder of impulse control 312.39 and Combinations of drug dependence excluding opioid type drug, unspecified abuse 304.80 [facility] [id number] [place] [address]- [address] 30 Apr, 2015 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 and 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, implants and grafts, initial encounter T84.82XA [facility] [id number] [place] [address]- [address] 28 Apr, 2015 Anxiety F41.9 ; Unspecified episodic mood disorder 296.90 ; Combinations of drug dependence excluding opioid type drug, unspecified abuse 304.80 and Other disorder of impulse control 312.39 [facility] [id number] [place] [address]- [address] Apr, Arthritis M19.90 [facility] [id number] [place] [address] 8[address]71- 6696 Apr, Anxiety F41.9 ; Unspecified episodic mood disorder 296.90 ; Combinations of drug dependence excluding opioid type drug, unspecified abuse 304.80 and Other disorder of impulse control 312.39 [facility] [id number] [place] [address] 37161- 70[address] 17 Apr, 2015 Arthritis M19.90 [facility] [id number] [place] [address] 57359- 30[address] 15 Apr, 2015 [facility] [id number] [place] [address] 96225- 8422 15 Apr, 2015 [facility] [id number] [place] [address] 47853- 3308 14 Apr, 2015 Unspecified episodic mood disorder 296.90 ; Combinations of drug dependence excluding opioid type drug, unspecified abuse 304.80 ; Other disorder of impulse control 312.39 and Anxiety F41.9 [facility] [id number] [place] [address] 31067 -4739 Apr, Left knee pain M25.562 [place] [address] 24236- 1258 Apr, [place] [address] 77239- 1168 Mar, Unspecified episodic mood disorder 296.90 ; Anxiety F41.9 ; Other disorder of impulse control 312.39 and Combinations of drug dependence excluding opioid type drug, unspecified abuse 304.80 [place] [address] 57791- 1009 Mar, Hyperpigmentation L81.9 [place] [address] 24619- 5835 Mar, Arthritis M19.90 and Anxiety F41.9 [place] [address] 07811- 1519 Mar, Unspecified episodic mood disorder F39 ; Combined drug dependence excluding opioids, 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 ; 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 and Anxiety F41.9 [place] [id number] [place] [address] 97521- 0582 12 Mar, 2015 Well woman exam Z01.419 ; Other fatigue R53.83 ; Hot flashes N95.1 ; Depression, unspecified depression type F32.9 and Body mass index (BMI) of 23.0-23.9 in adult Z68.23 [place] [id number] [place] [address] 64880- 4432 11 Mar, 2015 Unspecified episodic mood disorder 296.90 ; Other disorder of impulse control 312.39 and Anxiety F41.9 [place] [id number] [place] [address] 69090- 4641 11 Mar, 2015 Well woman exam Z01.419 [...] of breast Z12.39 and Limited mobility Z74.[address] [address]997- 4325 Mar, [address] 81020- 3688 Mar, [address] 75730- 9769 Mar, [address] 08684- 0535 Mar, Other specified complication of internal orthopedic prosthetic devices, implants and grafts, initial encounter T84.89XA ; Fibromyalgia M79.7 ; Hypertension I10 ; Anemia D64.9 ; Insomnia G47.00 ; Anxiety F41.9 ; Arthritis M19.90 and Migraine G43.[address] 63298- 5845 Mar, [place] [address] 36697- 3837 Feb, [address] 25722- 0617 Feb, Arthritis M19.90 and Anxiety F41.[address] 74915- 6171 Feb, [address] 62120- 1009 Feb, [address] [id number] [address] 7342 Feb, [facility] [id number] [place] [address] 77310- 4180 Feb, [facility] [id number] [address], [place] [address]- 6627 18 Feb, 2015 Anxiety F41.9 [facility] [id number] [place] [address] 21120- 5357 15 Feb, 2015 [facility] [id number] [place] [address] 67087- 2427 13 Feb, 2015 [facility] [id number] [place] [address] 70865- 2947 Feb, 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 and Fibromyalgia M79.7 [facility] [id number] [place] [address] 73709- 3022 Feb, [facility] [address] [id number] [address] 8534 Jan, [facility] [id number] [place] [address] 78942- 9682 Jan, [facility] [id number] [address]- 6975 Jan, [facility] [id number] [address]- 3166 24 Jan, 2015 [facility] [id number] [address] 4830 16 Jan, 2015 [facility] [id number] [place] [address] 82306- 3855 08 Jan, 2015 [facility] [id number] [address]- 6716 Jan, [facility] [id number] [address]- 9564 Jan, [facility] [id number] [address]- 4107 Dec, [facility] [id number] [place] [address] 62255- 6982 Dec, Left knee pain M25.562 [facility] [id number] [place] [address] 32566- 5129 Dec, Left knee pain M25.562 [facility] [id number] [place] [address] 70689- 6321 Dec, Fibromyalgia M79.7 ; Hypertension I10 and Arthritis M19.90 [facility] [id number] [place] [address] 68115- 4139 Dec, [facility] [id number] [place] [address] 63546- 3523 Dec, [facility] [id number] [place] [address] 02607- 2285 Dec, [facility] [id number] [place] [address] 88067- 9118 Dec, [facility] [id number] [place] [address] 04954- 7600 Nov, [facility] [id number] [place] [address] 41209- 6244 Nov, [facility] [id number] [place] [address] 50349- 7737 Nov, [facility] [id number] [place] [address] 25412- 4980 Nov, Hypertension I10 [facility] [id number] [place] [address] 89248- 4264 Oct, [facility] [id number] [address]- 5224 Oct, [facility] [id number] [place] [address] 71467- 3042 Oct, [facility] [address] [id number] [place] [address]- 8455 Oct, [facility] [address] [id number] [place] [address]- 2316 Oct, [facility] [address] [facility] [id number] [place] [address]- 1910 Sep, [facility] [address] [id number] [address]- 7658 Sep, [facility] [address] [id number] [address]- 1033 Sep, Hip pain associated with recalled total hip arthroplasty hardware 996.77 [facility] [address] [id number] [place] [address]- 4236 Sep, [facility] [address] [facility] [id number] [place] [address]- 6466 Sep, [facility] [address] [id number] [address]- 4718 Sep, [facility] [address] [id number] [place] [address]- 8108 Aug, [facility] [address] [facility] [id number] [address]- 9297 Jul, [facility] [address] [id number] [address]- 8608 June, [facility] [address] [id number] [address]- 3482 June, [facility] [address] [id number] [place] [address]- 9272 June, [facility] [address] [facility] [id number] [place] [address]- 9826 June, [facility] [address] [id number] [address]- 2211 June, [facility] [place] [facility] [address] [id number] [place] [address]- 5132 June, [facility] [place] [facility] [address] [id number] [place] [address]- 8378 May, [facility] [place] [facility] [address] [id number] [place] [address]- 9105 May, [facility] [place] [facility] [address] [id number] [place] [address]- 8022 May, [facility] [place] [facility] [address] [id number] [place] [address]- 9239 Apr, [facility] [place] [facility] [address] [id number] [place] [address]- 0005 30 Apr, 2014 [facility] [place] [facility] [address] [id number] [place] [address]- 4231 Apr, [facility] [place] [facility] [address] [id number] [place] [address]- 3436 Apr, [facility] [place] [facility] [address] [id number] [place] [address]- 6554 Apr, [facility] [place] [facility] [address] [id number] [place] [address]- 3538 Apr, [facility] [place] [facility] [address] [id number] [place] [address]- 7275 Apr, [facility] [place] [facility] [address] [id number] [place] [address]- 2046 Apr, [facility] [place] [facility] [address] [id number] [place] [address]- 8612 10 Apr, 2014 [facility] [place] [facility] [address] [id number] [place] [address]- 9506 05 Apr, 2014 [facility] [place] [facility] [address] [id number] [place] [address]- 2805 05 Apr, 2014 [facility] [place] [facility] [address] [id number] [place] [address]- 6034 Mar, 2014 [facility] [place] [facility] [address] [id number] [place] [address]- 2176 Mar, 2014 [facility] [place] [facility] [address] [id number] [place] 7606 16 Mar, 2014 [facility] [place] [facility] [address] [id number] [place] 5036 16 Mar, 2014 [facility] [place] [facility] [address] [id number] [place] [address]- 1326 Mar, 2014 [facility] [place] [facility] [address] [id number] [place] [address]- 0348 Mar, 2014 [facility] [place] [facility] [address] [id number] [place] [address]- 5090 15 Feb, 2014 [facility] [place] [facility] [address] [id number] [place] [address]- 1704 Feb, [facility] [place] [facility] [address] [id number] [place] [address]- 7197 Feb, [facility] [place] [facility] [address] [id number] [place] [address]- 4224 Feb, [facility] [place] [facility] [address] [facility] [id number] [place] [address]- 6251 Jan, [facility] [place] [facility] [address] [id number] [place] [address]- 3326 Jan, [facility] [place] [facility] [address] [id number] [place] [address]- 3661 Jan, [facility] [place] [facility] [address] [id number] [place] [address]- 6760 Jan, [facility] [place] [facility] [address] [id number] [place] [address]- 8639 Dec, [facility] [place] [facility] [address] [id number] [place] 5858 Dec, [facility] [place] [facility] [address] [id number] [place] [address]- 5400 Dec, [facility] [place] [facility] [address] [id number] [place] [address]- 4537 Dec, [facility] [place] [facility] [address] [id number] [place] [address]- 9580 Dec, [facility] [place] [facility] [address] [id number] [place] [address]- 3516 Dec, [facility] [place] [facility] [address] [id number] [place] [address]- 9199 Dec, [facility] [place] [facility] [address] [id number] [place] [address]- 7394 Dec, [facility] [place] [facility] [address] [id number] [place] [address]- 4883 Dec, [facility] [place] [facility] [address] [id number] [place] [address]- 6124 Dec, [facility] [place] [facility] [address] [id number] [place] [address]- 1765 Dec, [facility] [place] [facility] [address] [id number] [place] [address]- 1422 Nov, [facility] [place] [facility] [address] [id number] [place] [address]- 0866 Nov, [facility] [place] [facility] [address] [id number] [place] [address]- 4587 28 Nov, 2013 [facility] [place] [facility] [address] [id number] [place] [address]- 4030 Nov, [facility] [place] [facility] [address] [id number] [place] [address]- 7409 17 Nov, 2013 [facility] [place] [facility] [address] [id number] [place] [address]- 4495 15 Nov, 2013 [facility] [place] [facility] [address] [id number] [place] [address]- 9337 15 Nov, 2013 [facility] [place] [facility] [address] [id number] [place] [address]- 3972 15 Nov, 2013 [facility] [place] [facility] [address] [id number] [place] [address]- 6516 15 Nov, 2013 [facility] [place] [facility] [address] [id number] [place] [address]- 9688 14 Nov, 2013 [facility] [place] [facility] [address] [id number] [place] [address]- 2614 14 Nov, 2013 [facility] [place] [facility] [address] [id number] [place] [address]- 2897 14 Nov, 2013 [facility] [place] [facility] [address] [id number] [place] [address]- 8709 14 Nov, 2013 [facility] [place] [facility] [address] [id number] [place] [address]- 1069 13 Nov, 2013 [facility] [place] [facility] [address] [id number] [place] [address]- 2381 13 Nov, 2013 [facility] [place] [facility] [address] [id number] [place] [address]- 9656 11 Nov, 2013 [facility] [place] [facility] [address] [id number] [place] [address]- 8315 11 Nov, 2013 [facility] [place] [facility] [address] [id number], [place] [address]- 3048 07 Nov, 2013 [facility] [place] [facility] [address] [id number] [address]- 1932 07 Nov, 2013 [facility] [place] [facility] [address] [id number] [place] [address]- 2167 07 Nov, 2013 [facility] [place] [facility] [address] [id number] [address]- 8461 07 Nov, 2013 [facility] [place] [facility] [address] [id number] [place] [address]- 0970 30 Oct, 2013 [facility] [place] [facility] [address] [id number] [place] [address]- 0290 30 Oct, 2013 [facility] [place] [facility] [address] [id number] [place] [address]- 6806 26 Oct, 2013 [facility] [place] [facility] [address] [id number] [place] [address]- 2546 26 Oct, 2013 [facility] [place] [facility] [address] [id number] [place] [address]- 5208 22 Oct, 2013 [facility] [place] [facility] [address] [id number] [place] [address]- 2542 22 Oct, 2013 [facility] [place] [facility] [address] [id number] [place] [address]- 4003 18 Oct, 2013 [facility] [place] [facility] [address] [id number] [place] [address]- 2547 18 Oct, 2013 [facility] [place] [facility] [address] [id number] [place] [address]- 0457 18 Oct, 2013 [facility] [place] [facility] [address] [id number] [place] [address]- 5329 18 Oct, 2013 [facility] [place] [facility] [address] [id number] [place] [address]- 8495 12 Oct, 2013 [facility] [place] [facility] [address] [id number] [place] [address]- 6862 12 Oct, 2013 [facility] [place] [facility] [address] [id number] [place] [address]- 2544 Oct, 2013 [facility] [place] [facility] [address] [id number] [place] [address]- 2542 Oct, 2013 [facility] [place] [facility] [address] [id number] [place] [address]- 8660 Sep, [facility] [place] [facility] [address] [id number] [place] [address]- 4163 Sep, [facility] [place] [facility] [address] [id number] [place] [address]- 4069 Sep, [facility] [place] [facility] [address] [id number] [place] [address]- 3277 Sep, [facility] [place] [facility] [address] [id number] [place] [address]- 9051 Sep, [facility] [place] [facility] [address] [id number] [place] [address]- 4182 Sep, [facility] [place] [facility] [address] [id number] [place] [address]- 5830 Sep, [facility] [place] [facility] [address] [id number] [place] [address]- 2729 Sep, [facility] [place] [facility] [address] [id number] [place] [address]- 5693 Sep, [facility] [place] [facility] [address] [id number] [place] [address]- 6810 Sep, [facility] [place] [facility] [address] [id number] [place] [address]- 9614 Sep, [facility] [place] [facility] [address] [id number] [place] [address]- 5088 Sep, [facility] [place] [facility] [address] [id number] [place] [address]- 5694 Sep, [facility] [place] [facility] [address] [id number] [place] [address]- 5637 Sep, [facility] [place] [facility] [address] [id number] [place] [address]- 3639 Sep, [facility] [place] [facility] [address] [id number] [place] [address]- 7337 Sep, [facility] [place] [facility] [address] [id number] [place] [address]- 9434 Sep, [facility] [place] [facility] [address] [id number] [place] [address]- 4054 Sep, [facility] [place] [facility] [address] [id number] [place] [address]- 1233 Aug, [facility] [place] [facility] [address] [id number] [place] [address]- 6180 Aug, [facility] [place] [facility] [address] [id number] [place] [address]- 7720 Aug, [facility] [place] [facility] [address] [id number] [place] [address]- 2328 Aug, [facility] [place] [facility] [address] [id number] [place] [address]- 1287 Aug, [facility] [place] [facility] [address] [id number] [place] [address]- 9515 Aug, [facility] [place] [facility] [address] [id number] [place] [address]- 7962 Jul, [facility] [place] [facility] [address] [id number] [place] [address]- 3940 Jul, [facility] [place] [facility] [address] [id number] [place] [address]- 1245 Jul, [facility] [place] [facility] [address] [id number] [place] [address]- 2891 Jul, [facility] [place] [facility] [address] [id number] [place] [address]- 9931 June, [facility] [place] [facility] [address] [id number] [place] [address]- 8624 June, [facility] [place] [facility] [address] [id number] [place] [address]- 5093 June, [facility] [place] [facility] [address] [id number] [place] [address]- 2073 June, [facility] [place] [facility] [address] [id number] [place] [address]- 9165 June, [facility] [place] [facility] [address] [id number] [place] [address]- 7537 June, [facility] [place] [facility] [address] [id number] [place] [address]- 7030 June, [facility] [place] [facility] [address] [id number] [place] [address]- 1175 May, [facility] [place] [facility] [address] [id number] [place] [address]- 7516 May, [facility] [place] [facility] [address] [id number] [place] [address]- 8163 May, [facility] [place] [facility] [address] [id number] [place] [address]- 2181 May, [facility] [place] [facility] [address] [id number] [place] [address]- 5733 May, [facility] [place] [facility] [address] [id number] [place] [address]- 9992 May, [facility] [place] [facility] [address] [id number] [place] [address]- 2247 31 Apr, 2013 [facility] [place] [facility] [address] [id number] [place] [address] 31 Apr, 2013 [facility] [place] [facility] [address] [id number] [place] [address] 28 Apr, 2013 [facility] [place] [facility] [address] [id number] [place] [address] 28 Apr, 2013 [facility] [place] [facility] [address] [id number] [place] [address] 14 Apr, 2013 [facility] [place] [facility] [address] [id number] [place] [address] 14 Apr, 2013 [facility] [place] [facility] [address] [id number] [place] [address] 12 Apr, 2013 [facility] [place] [facility] [address] [id number] [place] [address] 12 Apr, 2013 [facility] [place] [facility] [address] [id number] [place] [address] Apr, [facility] [place] [facility] [address] [id number] [place] [address] Apr, [facility] [place] [facility] [address] [id number] [place] [address] Apr, [facility] [place] [facility] [address] [id number] [place] [address] Apr, [facility] [place] [facility] [address] [id number] [place] [address] Apr, [facility] [place] [facility] [address] [id number] [place] [address]- [address] Apr, [facility] [place] [facility] [address] [id number] [place] [address] Mar, [facility] [place] [facility] [address] [id number] [place] [address] Mar, [facility] [place] [facility] [address] [id number] [place] [address] Mar, [facility] [place] [facility] [address] [id number] [place] [address] Feb, [facility] [place] [facility] [address] [id number] [place] [address] Feb, [facility] [place] [facility] [address] [id number] [place] [address] Feb, [facility] [place] [facility] [address] [id number] [place] [address] Feb, [facility] [place] [facility] [address] [id number] [place] [address]- [address] Feb, [facility] [place] [facility] [address] [id number] [place] [address] Feb, [facility] [place] [facility] [address] [id number] [place] [address] Feb, [facility] [place] [facility] [address] [id number] [place] [address] Feb, [facility] [place] [address] [id number] [place] [address] Feb, [facility] [address] [id number] [place] [address] Feb, [facility] [address] [id number] [place] [address] Jan, [facility] [address] [id number] [place] [address] Jan, [facility] [address] [id number] [place] [address] Jan, [facility] [address] [id number] [place] [address] Jan, [facility] [address] [id number] [place] [address] Jan, [facility] [address] [id number] [place] [address] 24 Jan, 2013 [facility] [address] [id number] [place] [address] Jan, [facility] [address] [id number] [place] [address] 23 Jan, 2013 [facility] [address] [id number] [place] [address]47 19 Jan, 2013 [facility] [address] [id number] [place] [address] 19 Jan, 2013 [facility] [address] [id number] [place] [address]26 17 Jan, 2013 [facility] [address] [id number] [place] [address]- [address] 17 Jan, 2013 [facility] [address] [id number] [place] [address]- [address] Jan, [facility] [address] [id number] [place] [address] Jan, [facility] [place] [facility] [address] [id number] [place] [address]- [address] Jan, [facility] [place] [facility] [address] [id number] [place] [address] 1839 Jan, [facility] [place] [facility] [address] [id number] [place] [address]163 Jan, [facility] [address] [id number] [place] [address] 4867 Jan, [facility] [place] [facility] [address] [id number] [place] [address]- [address]79 Jan, [facility] [place] [facility] [address] [facility] [id number] [place] [address]- 1723 Jan, [facility] [place] [facility] [address] [id number] [place] [address]- 34[address] Jan, [facility] [place] [facility] [address] [id number] [place] [address]- [address]676 Dec, [facility] [place] [facility] [address] [id number] [address] Dec, [facility] [place] [facility] [address] [id number], [place] [address] Dec, [facility] [place] [facility] [address] [id number], [place] [address] Dec, [facility] [place] [facility] [address] [id number] [place] [address]- 9801 Dec, [facility] [place] [facility] [address] [id number], [place] [address] Dec, [facility] [place] [facility] [address] [facility] [id number], [place] [address]14 Dec, [facility] [place] [facility] [address] [id number], [place] [address] Dec, [facility] [place] [facility] [address] [id number] [place] [address]- 7426 Dec, [facility] [place] [facility] [address] [id number] [place] [address]- [address]395 Dec, [facility] [place] [facility] [address] [id number] [place] [address]- 116[address] Nov, [facility] [place] [facility] [address] [id number] [place] [address]- 18[address] Nov, [facility] [place] [facility] [address] [id number] [place] [address] Nov, [facility] [place] [facility] [address] [id number] [place] [address] Nov, [facility] [place] [facility] [address] [id number] [place] [address] 8177 Nov, [facility] [place] [facility] [address] [id number] [place] [address] 5783 Nov, [facility] [place] [facility] [address] [id number] [place] [address] 8666 Nov, [facility] [place] [facility] [address] [facility] [id number] [place] [address]- 0467 Nov, [facility] [place] [facility] [address] [id number] [address] Nov, [facility] [place] [facility] [address] [id number] [address] 48[address] Nov, [facility] [place] [facility] [address] [id number] [place] [address] 0106 Oct, [facility] [place] [facility] [address] [id number] [place] [address]- 2484 Oct, [facility] [place] [facility] [address] [facility] [id number] [place] [address]- 7205 Oct, [facility] [place] [facility] [address] [id number] [place] [address] 2546 Oct, [facility] [address] [id number] [place] [address] 8004 Oct, [facility] [place] [facility] [address] [id number] [place] [address]- 2546 Sep, [facility] [place] [facility] [address] [id number] [place] [address]- 2546 Sep, [facility] [place] [facility] [address] [id number] [place] [address]- 0960 Aug, [facility] [place] [facility] [address] [id number] [place] [address]- 1434 Aug, [facility] [place] [facility] [address] [id number] [place] [address]- 4727 Aug, [facility] [place] [facility] [address] [id number] [place] [address]- 5804 Aug, [facility] [place] [facility] [address] [id number] [place] [address] 8174 Aug, [facility] [place] [facility] [address] [id number] [place] [address]- 8386 Aug, [facility] [place] [facility] [address] [id number] [place] [address]- 8776 Aug, [facility] [place] [facility] [address] [id number] [place] [address]- 9610 Jul, [facility] [place] [facility] [address] [id number] [place] [address]- 2540 Jul, [facility] [place] [facility] [address] [id number] [place] [address]- 6416 June, [facility] [place] [facility] [address] [id number] [place] [address]- 2326 June, [facility] [place] [facility] [address] [id number] [place] [address]- 1155 June, [facility] [address] [id number] [place] [address]- 3428 June, [facility] [address] [id number] [place] [address]- 0717 June, [facility] [address] [id number] [place] [address]- 9938 June, [facility] [address] [id number] [place] [address]- 3573 June, [facility] [address] [id number] [place] [address]- 2346 June, [facility] [address] [id number] [place] [address]- 7646 June, [facility] [address] [id number] [place] [address]- 9348 June, [facility] [address] [id number] [place] [address]- 4681 June, [facility] [address] [id number] [place] [address]- 3896 May, [facility] [address] [id number] [place] [address]- 0304 May, [facility] [address] [id number] [place] [address]- 9618 May, [facility] [place] [facility] [address] [id number] [place] [address]- 0824 May, [facility] [place] [facility] [address] [id number] [place] [address]- 5525 Apr, [facility] [place] [facility] [address] [id number] [place] [address]- 6634 Apr, [facility] [place] [facility] [address] [id number] [place] [address]- 8266 Apr, [facility] [place] [facility] [address] [id number] [place] [address]- 7955 Mar, [facility] [address] [id number] [place] [address]- 5086 Mar, [facility] [address] [id number] [place] [address]- 5946 29 Feb, 2012 [facility] [address] [id number] [place] [address]- 1631 Feb, [facility] [address] [id number] [place] [address]- 2492 Feb, [facility] [address] [id number] [place] [address]- 9572 Feb, [facility] [address] [id number] [place] [address]- 4138 16 Feb, 2012 [facility] [address] [id number] [place] [address]- 4637 Feb, [facility] [address] [id number] [place] [address]- 1252 Feb, [facility] [address] [id number] [place] [address]- 3265 31 Jan, 2012 [facility] [address] [id number] [place] [address]- 6865 31 Jan, 2012 [facility] [address] [id number] [place] [address]- 6218 Jan, [facility] [address] [id number] [place] [address]- 4386 Jan, [facility] [address] [id number] [place] [address]- 1392 Jan, [facility] [address] [id number] [place] [address] Jan, [facility] [address] [id number] [place] [address]- 7698 Jan, [facility] [place] [facility] [address] [id number] [place] [address]- 3167 Jan, [facility] [place] [facility] [address] [id number] [place] [address]- 0469 Jan, [facility] [place] [facility] [address] [id number] [place] [address]- 2529 Jan, [facility] [place] [facility] [address] [id number] [place] [address]- 8219 Jan, [facility] [place] [facility] [address] [id number] [place] [address]- 0793 Dec, [facility] [place] [facility] [address] [id number] [place] [address]- 9977 Dec, [facility] [place] [facility] [address] [id number] [place] [address]- 1526 Dec, [facility] [place] [facility] [address] [id number] [place] [address]- 2730 Dec, [facility] [place] [facility] [address] [id number] [place] [address]- 3291 Nov, [facility] [place] [facility] [address] [id number] [place] [address]- 0340 Nov, [facility] [place] [facility] [address] [id number] [place] [address]- 5254 Nov, [facility] [place] [facility] [address] [id number] [place] [address]- 9207 27 Oct, 2011 [facility] [place] [facility] [address] [id number] [place] [address]- 0004 24 Oct, 2011 [facility] [place] [facility] [address] [id number] [place] [address]- 8702 21 Oct, 2011 [facility] [place] [facility] [address] [id number] [place] [address]- 1875 10 Oct, 2011 [facility] [place] [facility] [address] [id number] [place] [address]- 5876 07 Oct, 2011 [facility] [place] [facility] [address] [id number] [place] [address]- 3796 04 Oct, 2011 [facility] [place] [facility] [address] [id number] [place] [address]- 7486 04 Oct, 2011 [facility] [place] [facility] [address] [id number] [place] [address]- 4946 Sep, [facility] [place] [facility] [address] [id number] [place] [address]- 2248 Sep, [facility] [place] [facility] [address] [id number] [place] [address]- 8106 Sep, [facility] [place] [facility] [address] [id number] [place] [address]- 2588 Sep, [facility] [place] [facility] [address] [id number] [place] [address]- 7168 Sep, [facility] [place] [facility] [address] [id number] [place] [address]- 3054 Aug, [facility] [place] [facility] [address] [id number] [place] [address]- 2575 Aug, [facility] [place] [facility] [address] [id number] [place] [address]- 4136 Aug, [facility] [place] [facility] [address] [id number] [place] [address]- 1617 16 Aug, 2011 [facility] [place] [facility] [address] [id number] [place] [address]- 2440 13 Aug, 2011 [facility] [place] [facility] [address] [id number] [place] [address]- 7930 Aug, [facility] [place] [facility] [address] [id number] [place] 1176 Aug, [facility] [place] [facility] [address] [id number] [place] [address]- 0859 Jul, [facility] [place] [facility] [address] [id number] [place] [address]- 1902 26 Jul, 2011 [facility] [address] [id number] [place] [address]- 8323 Jul, [facility] [place] [facility] [address] [id number] [place] [address]- 6786 Jul, [facility] [address] [id number] [place] [address]- 8219 Jul, [facility] [place] [facility] [address] [id number] [place] [address]- 6714 Jul, [facility] [address] [id number] [place] [address]- 0803 07 Jul, 2011 [facility] [place] [facility] [address] [id number] [place] [address]- 7327 06 Jul, 2011 [facility] [address] [id number] [place] [address]- 6626 05 Jul, 2011 [facility] [address] [id number] [place] [address]- 6448 June, [facility] [place] [facility] [address] [id number] [place] [address]- 0007 June, [facility] [address] [id number] [place] [address]- 1953 June, [facility] [place] [facility] [address] [id number] [place] [address]- 3763 June, [facility] [place] [facility] [address] [id number] [place] [address]- 8941 June, [facility] [place] [facility] [address] [id number] [place] [address]- 0241 June, [facility] [place] [facility] [address] [id number] [place] [address]- 9482 June, [facility] [place] [facility] [address] [id number] [place] [address]- 7806 June, [facility] [address] [id number] [place] [address]- 6007 May, [facility] [place] [facility] [address] [id number] [place] [address]- 0922 May, [facility] [place] [facility] [address] [id number] [place] [address]- 8711 May, [facility] [place] [facility] [address] [id number] [place] [address]- 5651 May, [facility] [place] [facility] [address] [id number] [place] [address]- 3955 May, [facility] [place] [facility] [address] [id number] [place] [address]- 0787 May, [facility] [place] [facility] [address] [id number] [place] [address]- 8367 May, [facility] [place] [facility] [address] [id number] [place] [address]- 6018 Apr, [facility] [place] [facility] [address] [id number] [place] [address]- 2104 Apr, [facility] [place] [facility] [address] [id number] [place] [address]- 5344 Apr, [facility] [place] [facility] [address] [id number] [place] [address]- 3728 Apr, [facility] [place] [facility] [address] [id number] [place] [address]- 0994 Apr, [facility] [place] [facility] [address] [id number] [place] [address]- 5480 Apr, [facility] [place] [facility] [address] [id number] [place] [address]- 0036 Apr, [facility] [place] [facility] [address] [id number] [place] [address]- 7666 Mar, [facility] [place] [facility] [address] [id number] [place] [address]- 8743 20 Mar, 2011 [facility] [address] [id number] [place] [address]- 2606 14 Mar, 2011 [facility] [place] [facility] [address] [id number] [place] [address] 2546 13 Mar, 2011 [facility] [address] [id number] [place] [address]- 2976 Mar, [facility] [place] [facility] [address] [id number] [place] [address] 2546 Mar, [facility] [address] [id number] [place] [address]- 7316 Mar, [facility] [address] [id number] [place] [address]- 2880 Feb, [facility] [address] [id number] [place] [address]- 9540 Feb, [facility] [address] [id number] [place] [address]- 6482 Feb, [facility] [address] [id number] [place] [address]- 1526 Feb, [facility] [address] [id number] [place] [address]- 0391 Feb, [facility] [address] [id number] [place] [address]- 0616 Feb, [facility] [address] [id number] [place] [address] 2546 Feb, [facility] [place] [facility] [address] [id number] [place] [address]- 7136 Feb, [facility] [place] [facility] [address] [id number] [place] [address]- 2546 Feb, [facility] [place] [facility] [address] [id number] [place] [address]- 5616 Feb, [facility] [place] [facility] [address] [id number] [place] [address]- 7975 Jan, [facility] [place] [facility] [address] [id number] [place] [address]- 9233 Jan, [facility] [place] [facility] [address] [id number] [place] [address]- 1831 Jan, [facility] [place] [facility] [address] [id number] [place] [address]- 0627 Jan, [facility] [place] [facility] [address] [id number] [place] [address]- 7561 Jan, [facility] [place] [facility] [address] [id number] [place] [address]- 3539 Jan, [facility] [place] [facility] [address] [id number] [place] [address]- 0625 Jan, [facility] [place] [facility] [address] [id number] [place] [address]- 0041 Jan, [facility] [place] [facility] [address] [id number] [place] [address]- 0185 Jan, [facility] [place] [facility] [address] [id number] [place] [address]- 0258 Jan, [facility] [place] [facility] [address] [id number] [place] [address]- 0501 Jan, [facility] [place] [facility] [address] [id number] [address]- 0337 Dec, [facility] [place] [facility] [address] [id number] [place] [address]- 0240 Dec, [facility] [place] [facility] [address] [id number] [place] [address]- 9986 Dec, [facility] [place] [facility] [address] [id number], [place] [address]- 8729 16 Dec, 2010 [facility] [place] [facility] [address] [id number], [place] [address]- 9543 14 Dec, 2010 [facility] [place] [facility] [address] [id number] [place] [address]- 3809 09 Dec, 2010 [facility] [place] [facility] [address] [id number] [place] [address]- 0426 08 Dec, 2010 [facility] [place] [facility] [address] [id number] [place] [address]- 3194 Dec, [facility] [place] [facility] [address] [id number] [place] [address]- 4866 Dec, [facility] [place] [facility] [address] [id number] [place] [address], [place] [address]- 8534 Nov, [facility] [place] [facility] [address] [id number] [place] [address]- 1303 Nov, [facility] [place] [facility] [address] [id number] [place] [address]- 8785 Nov, [facility] [place] [facility] [address] [id number] [place] [address]- 5343 24 Nov, 2010 [facility] [place] [facility] [address] [id number] [place] [address]- 2781 24 Nov, 2010 [facility] [place] [facility] [address] [facility] [id number] [place] [address]- 3445 Nov, [facility] [place] [facility] [address] [id number], [place] [address]- 8363 Aug, [facility] [place] [facility] [address] [id number] [address]- 8523 14 Feb, 2010 [facility] [place] [facility] [address] [id number] [place] [address]- 3073 14 Jan, 2010 [facility] [place] [facility] [address] [facility] [id number] [place] [address]- 1454 06 Jan, 2010 [facility] [place] [facility] [address] [facility] [id number] [place] 8468 Jan, [facility] [place] [facility] [id number] [address]- 2546 Jan, [facility] [id number] [address]- 3046 Jan, [facility] [id number] [address]- 1546 Dec, [facility] [id number] [address]- 1876 Dec, [facility] [id number] [address]- 7896 Dec, [facility] [id number] [address]- 0684 Dec, [facility] [id number], [place] [address]- 7394 Nov, [facility] [id number], [place] [address]- 8102 Nov, [facility] [address] [id number] [address]- 4211 Nov, IMMUNIZATIONS No Known Immunizations SOCIAL HISTORY Never Assessed REASON FOR VISIT Fentanyl 05/29 PLAN OF CARE VITAL SIGNS MEDICATIONS Medication Instructions Dosage Frequency Start Date End Date Duration Status Fentanyl 50 MCG/HR Transdermal 48 hrs 1 patch to skin May, June, 30 days Active RESULTS No Results [...]
--- OUTSIDE RECORDS SUMMARY | 2018-01-13 20:55 | XMS REPORT ---
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 Active 778572303 Problem Hypertension I10 Active 66456101 Problem Arthritis M19.90 Active 0824491 Problem 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 [id number] [address] Aug, Arthritis M19.90 [facility] [address] [id number] [address] Aug, [facility] [id number] [place] [address] 01750- 3646 Aug, Obesity (BMI 30.0-34.9) E66.9 ; Unspecified episodic mood disorder F39 and Hypertension I10 [facility] [id number] [place] [address] 95183- 5321 Aug, Unspecified episodic mood disorder F39 [facility] [id number] [place] [address] 30919- 4697 Aug, [facility] [id number] [place] [address] 87559- 3091 Jul, Unspecified episodic mood disorder F39 [facility] [id number] [place] [address] 60388- 7113 Jul, [facility] [id number] [place] [address] 93677- 2753 Jul, Arthritis M19.90 [facility] [id number] [place] [address] 49067- 4331 Jul, Left hip pain M25.552 ; Hypertension I10 ; Other obesity due to excess calories E66.09 and Body mass index (BMI) of 34.0-34.9 in adult Z68.34 [facility] [id number] [place] [address] 21420- 2968 Jul, Unspecified episodic mood disorder F39 [facility] [id number] [place] [address] 06428- 5091 June, Gastroesophageal reflux disease, esophagitis presence not specified K21.9 [facility] [id number] [place] [address] 63138- 0615 June, [facility] [id number] [place] [address] 16423- 5096 June, [facility] [address] [address] June, Arthritis M19.90 [facility] [address] [address] June, [facility] [address] [address] June, [facility] [id number] [place] [address] 63592- 8843 June, Unspecified episodic mood disorder F39 [facility] [id number] [place] [address] 55486- 4150 May, Unspecified episodic mood disorder F39 [facility] [address], [place] [address] May, [facility] [id number] [place] [address] 50581- 7847 May, Arthritis M19.90 [facility] [address] [address] May, Dysuria R30.0 ; Abscess L02.91 and Acute cystitis without hematuria N30.00 [facility] [address] [address] May, 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 ; Unspecified episodic mood disorder F39 ; Combined drug dependence excluding opioids, 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 ; Anxiety F41.9 and Other psychoactive substance dependence, 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 [facility] [address] [address] May, [facility] [id number] [place] [address] 60152- 6511 May, 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 ; Unspecified episodic mood disorder F39 ; Combined drug dependence excluding opioids, 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 ; Other psychoactive substance dependence, 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 and Anxiety F41.9 [facility] [id number] [place] [address] 39390- 4157 May, Other chronic pain G89.29 ; Left hip pain M25.552 ; Hypertension I10 ; 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, 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 and Unspecified episodic mood disorder F39 [facility] [id number] [place] [address] 48156- 2063 Apr, [facility] [id number] [place] [address] 64642 -8991 Apr, Neck pain M54.2 ; Left hip pain M25.552 and Fall, initial encounter W19.XXXA [facility] [address] 40[address]- 6259 Apr, Unspecified episodic mood disorder F39 ; Combined drug dependence excluding opioids, 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 ; Anxiety F41.9 ; Other psychoactive substance dependence, 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 and 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 [facility] [id number] [place] [address] 34650- 9587 Apr, [facility] [id number] [place] [address] 74119- 9228 Apr, Arthritis M19.90 and Unspecified episodic mood disorder F39 [facility] [id number] [place] [address] 13710- 6470 Apr, Unspecified episodic mood disorder F39 [facility] [id number] [place] [address] 34715- 6067 Apr, [facility] [address] 64518- 5915 08 Apr, 2017 [facility] [id number] [place] [address] 06018- 3726 07 Apr, 2017 Unspecified episodic mood disorder F39 ; Combined drug dependence excluding opioids, 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 ; Anxiety F41.9 ; Other psychoactive substance dependence, 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 and 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 [facility] [id number] [place] [address] 55653- 9976 Mar, Unspecified episodic mood disorder F39 [facility] [id number] [place] [address] 92364- 9886 Mar, Gastroesophageal reflux disease, esophagitis presence not specified K21.9 [facility] [id number] [place] [address] 53351- 8507 Mar, Arthritis M19.90 and Unspecified episodic mood disorder F39 [facility] [id number] [place] [address] 53977- 0136 Feb, [facility] [id number] [place] [address] 64680- 3864 Feb, [facility] [id number] [place] [address] 54711- 7540 Feb, [facility] [id number] [place] [address] 53147- 1234 Feb, Arthritis M19.90 [facility] [id number] [place] [address] 05837- 7743 Feb, Non-pressure chronic ulcer of right calf, 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 ; Unspecified episodic mood disorder F39 and Left hip pain M25.552 [facility] [id number] [place] [address] 84332 2546 Feb, [facility] [id number] [place] [address] 44671 2546 Feb, [facility] [id number] [place] [address] 96746- 2466 Jan, Arthritis M19.90 [facility] [id number] [place] [address] 60962- 2546 Jan, Left hip pain M25.552 and Non-pressure chronic ulcer of right calf, 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 [facility] [id number] [place] [address] 61934- 3217 Jan, Chronic hepatitis C without hepatic coma B18.2 [facility] [id number] [place] [address] 70800- 6036 Jan, Encounter for immunization Z23 ; Venous insufficiency ( chronic) (peripheral) I87.2 ; Non-pressure chronic ulcer of unspecified calf limited to breakdown of skin L97.201 and Gastroesophageal reflux disease, esophagitis presence not specified K21.9 [facility] [id number] [place] [address] 78422- 6528 Jan, [facility] [id number] [place] [address] 04503- 0951 Jan, Chronic hepatitis C without hepatic coma B18.2 and Encounter for immunization Z23 [facility] [id number] [place] [address] 78872- 8093 Jan, Arthritis M19.90 [facility] [id number] [place] [address] 01973- 3133 Jan, [facility] [id number] [place] [address] 47624- 5090 Dec, [facility] [id number] [place] [address] 85014- 3123 Dec, Unspecified episodic mood disorder F39 [facility] [id number] [place] [address] 71525- 9657 Dec, Arthritis M19.90 [facility] [id number] [place] [address] 39983- 9282 Dec, Arthritis M19.90 [facility] [id number] [place] [address] 81895- 7156 Nov, [facility] [id number] [place] [address] 78917- 9876 Nov, [facility] [id number] [place] [address] 65439- 5456 Nov, Other psychoactive substance dependence, 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 ; 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, 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 and Chronic hepatitis C without hepatic coma B18.2 [facility] [id number] [place] [address] 68456- 4595 Nov, Arthritis M19.90 [facility] [id number] [place] [address] 44101 -4778 Oct, Partial thickness burn of abdomen, initial encounter T21.22XA [facility] [id number] [place] [address] 57966- 1273 Oct, [facility] [id number] [place] [address] 75041- 0960 Sep, Arthritis M19.90 [facility] [id number] [place] [address] 00967- 3015 Sep, [facility] [id number] [place] [address] 89772- 4335 Sep, [facility] [id number] [place] [address] 39977- 4917 Sep, Unspecified episodic mood disorder F39 ; Chronic hepatitis C without hepatic coma B18.2 and Left hip pain M25.552 [facility] [id number] [place] [address] 87187- 7807 Sep, Arthritis M19.90 and Left hip pain M25.552 [facility] [id number] [place] [address] 54675- 8481 Aug, [facility] [id number] [place] [address] 55479- 7389 Aug, [facility] [id number] [place] [address] 19577- 3579 Aug, Chronic hepatitis C without hepatic coma B18.2 [facility] [id number] [place] [address] 52143- 8616 Aug, [facility] [id number] [place] [address] 33456- 0045 Aug, Chronic hepatitis C without hepatic coma B18.2 [facility] [id number] [place] [address] 15437- 0067 Aug, 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, 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 [facility] [id number] [place] [address] 94211- 6280 Aug, [facility] [id number] [place] [address] 98110- 2406 Aug, Chronic hepatitis C without hepatic coma B18.2 and Hypertension I10 [facility] [id number] [place] [address] 68826- 0802 Jul, [facility] [id number] [place] [address] 77628- 8702 June, [facility] [id number] [place] [address] 38780- 6724 Apr, Fibromyalgia M79.7 ; Left hip pain M25.552 and Decubitus ulcer of sacral region, stage 1 L89.151 [facility] [id number] [place] [address] 76260- 3859 Apr, [facility] [id number] [place] [address] 01162- 2781 Apr, [facility] [id number] [place] [address] 54835- 4853 Feb, [facility] [id number] [place] [address] 14315- 5444 Dec, Anxiety F41.9 ; Combined drug dependence excluding opioids, 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 and Unspecified episodic mood disorder F39 [facility] [id number] [place] [address] 61418- 3587 Dec, [facility] [address] [address] 5786 Nov, [facility] [id number] [place] [address] 33394- 9315 Nov, [facility] [id number] [place] [address] 80304- 1905 Nov, 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 and Anxiety F41.9 [facility] [id number] [place] [address] 35340- 2464 Oct, [facility] [id number] [place] [address] 18457 -1585 Oct, Open wound of left thigh, initial encounter S71.102A [facility] [id number] [place] [address] 08914- 5067 Oct, [facility] [id number] [place] [address] 54001- 6759 Sep, Unspecified episodic mood disorder F39 ; Other disorder of impulse control 312.39 ; Combined drug dependence excluding opioids, 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 and Anxiety F41.9 [facility] [id number] [place] [address] 97347- 8584 Sep, Other disorder of impulse control 312.39 ; Combined drug dependence excluding opioids, 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 ; Anxiety F41.9 and Unspecified episodic mood disorder F39 [facility] [id number] [place] [address] 71732- 8660 Sep, Other chronic pain G89.29 [facility] [id number] [place] [address] 34471- 7724 Sep, [facility] [id number] [place] [address] 32927- 5774 Sep, [facility] [id number] [place] [address] 79855- 6555 Aug, [facility] [id number] [place] [address] 94966- 6560 Aug, [facility] [id number] [place] [address] 86641- 8647 Aug, [facility] [id number] [place] [address] 49698- 0890 Jul, [facility] [id number] [place] [address] 73777- 2561 Jul, [facility] [id number] [place] [address] 68012- 9073 Jul, [facility] [id number] [place] [address] 86286- 4310 Jul, Arthritis M19.90 ; Chronic hepatitis C without hepatic coma B18.2 and Left hip pain M25.552 [facility] [id number] [place] [address] 81839- 8982 Jul, Left knee pain M25.562 [facility] [id number] [place] [address] 74264- 5912 Jul, Combined drug dependence excluding opioids, 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 ; Anxiety F41.9 ; Other disorder of impulse control 312.39 and Unspecified episodic mood disorder F39 [facility] [id number] [place] [address] 06199- 5486 Jul, Left knee pain M25.562 [facility] [id number] [place] [address] 00040- 9696 Jul, Left knee pain M25.562 and Left hip pain M25.552 [facility] [id number] [place] [address] 38257- 5077 Jul, [facility] [id number] [place] [address] 04976- 8972 June, [facility] [id number] [place] [address] 31812- 6012 June, Combinations of drug dependence excluding opioid type drug, unspecified abuse 304.80 ; Other disorder of impulse control 312.39 ; Unspecified episodic mood disorder F39 and Anxiety F41.9 [facility] [id number] [place] [address] 10058- 7489 June, Other fatigue R53.83 ; Headache R51 and Left knee pain M25.562 [facility] [id number] [place] [address] 53707- 9278 June, Unspecified episodic mood disorder F39 ; Combinations of drug dependence excluding opioid type drug, unspecified abuse 304.80 ; Other disorder of impulse control 312.39 and Anxiety F41.9 [facility] [id number] [place] [address] 71499- 6180 June, Anxiety F41.9 [facility] [id number] [place] [address] 74834- 0433 June, Pain in left knee M25.562 [facility] [id number] [place] [address] 30021- 4535 June, Anxiety F41.9 and Combinations of drug dependence excluding opioid type drug, unspecified abuse 304.80 [facility] [id number] [place] [address] 71903- 8966 June, Unspecified episodic mood disorder 296.90 ; Combinations of drug dependence excluding opioid type drug, unspecified abuse 304.80 and Other disorder of impulse control 312.39 [facility] [id number] [place] [address] 07047- 6660 June, Anxiety F41.9 and Unspecified episodic mood disorder 296.90 [facility] [id number] [place] [address] 08883- 9635 May, Arthritis M19.90 [facility] [id number] [place] [address] 65052- 0719 May, Arthritis M19.90 [facility] [id number] [place] [address] 05637- 9781 May, Anxiety F41.9 ; Combinations of drug dependence excluding opioid type drug, unspecified abuse 304.80 and Other disorder of impulse control 312.39 [facility] [id number] [place] [address] 33132- 2314 18 May, 2015 Left knee pain M25.562 [facility] [id number] [place] [address] 52662- 4510 May, Arthritis M19.90 [facility] [id number] [place] [address] 66840- 0095 May, [facility] [id number] [place] [address] 65697- 5280 May, Anxiety F41.9 ; Unspecified episodic mood disorder 296.90 ; Combinations of drug dependence excluding opioid type drug, unspecified abuse 304.80 and Other disorder of impulse control 312.39 [facility] [id number] [place] [address] 78360- 6762 May, Left knee pain M25.562 [facility] [id number] [place] [address] 17261- 2428 May, Left knee pain M25.562 ; Combinations of drug dependence excluding opioid type drug, unspecified abuse 304.80 ; Other disorder of impulse control 312.39 ; Fibromyalgia M79.7 ; Hypertension I10 ; Unspecified episodic mood disorder 296.90 and Left hip pain M25.552 [facility] [id number] [place] [address] 08789- 1194 May, Unspecified episodic mood disorder 296.90 ; Other disorder of impulse control 312.39 ; Combinations of drug dependence excluding opioid type drug, unspecified abuse 304.80 and Anxiety F41.9 [facility] [id number] [place] [address] 73668- 9775 May, Left knee pain M25.562 ; Combinations of drug dependence excluding opioid type drug, unspecified abuse 304.80 ; Other disorder of impulse control 312.39 ; Fibromyalgia M79.7 ; Hypertension I10 ; Unspecified episodic mood disorder 296.90 and Left hip pain M25.552 [facility] [address] [address]- 6196 May, Anxiety F41.9 ; Unspecified episodic mood disorder 296.90 ; Other disorder of impulse control 312.39 and Combinations of drug dependence excluding opioid type drug, unspecified abuse 304.80 [facility] [id number] [place] [address] 81637- 8636 30 Apr, 2015 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 and 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, implants and grafts, initial encounter T84.82XA [facility] [id number] [place] [address] 39088- 8757 Apr, Anxiety F41.9 ; Unspecified episodic mood disorder 296.90 ; Combinations of drug dependence excluding opioid type drug, unspecified abuse 304.80 and Other disorder of impulse control 312.39 [facility] [id number] [place] [address] 43590- 0514 Apr, Arthritis M19.90 [facility] [id number] [place] [address] 56199- 6332 Apr, Anxiety F41.9 ; Unspecified episodic mood disorder 296.90 ; Combinations of drug dependence excluding opioid type drug, unspecified abuse 304.80 and Other disorder of impulse control 312.39 [facility] [address] [address]- 3969 17 Apr, 2015 Arthritis M19.90 [facility] [id number] [place] [address] 25321- 8023 15 Apr, 2015 [facility] [id number] [place] [address] 62770- 9449 15 Apr, 2015 [facility] [id number] [place] [address] 51381- 0692 14 Apr, 2015 Unspecified episodic mood disorder 296.90 ; Combinations of drug dependence excluding opioid type drug, unspecified abuse 304.80 ; Other disorder of impulse control 312.39 and Anxiety F41.9 [facility] [address] [place] [address] -7675 Apr, Left knee pain M25.562 [facility] [id number] [place] [address] 18730- 1810 Apr, [facility] [id number] [place] [address] 27528- 1797 Mar, Unspecified episodic mood disorder 296.90 ; Anxiety F41.9 ; Other disorder of impulse control 312.39 and Combinations of drug dependence excluding opioid type drug, unspecified abuse 304.80 [facility] [id number] [place] [address] 74532- 8668 Mar, Hyperpigmentation L81.9 [facility] [id number] [place] [address] 31071- 8259 Mar, Arthritis M19.90 and Anxiety F41.9 [facility] [id number] [place] [address] 32000- 7538 Mar, Unspecified episodic mood disorder F39 ; Combined drug dependence excluding opioids, 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 ; 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 and Anxiety F41.9 [facility] [id number] [place] [address] 55447- 4668 12 Mar, 2015 Well woman exam Z01.419 ; Other fatigue R53.83 ; Hot flashes N95.1 ; Depression, unspecified depression type F32.9 and Body mass index (BMI) of 23.0-23.9 in adult Z68.23 [facility] [id number] [place] [address] 44561- 5927 11 Mar, 2015 Unspecified episodic mood disorder 296.90 ; Other disorder of impulse control 312.39 and Anxiety F41.9 [facility] [id number] [place] [address] 87418- 9088 11 Mar, 2015 Well woman exam Z01.419 [...] of breast Z12.39 and Limited mobility Z74.[address] 26221- 4450 Mar, [address] 92986- 0188 Mar, [address] 94798- 4053 Mar, [facility] [address] 99152- 8280 Mar, Other specified complication of internal orthopedic prosthetic devices, implants and grafts, initial encounter T84.89XA ; Fibromyalgia M79.7 ; Hypertension I10 ; Anemia D64.9 ; Insomnia G47.00 ; Anxiety F41.9 ; Arthritis M19.90 and Migraine G43.909 [place] [id number] [place] [address]8864- 5742 Mar, [place] [address] [address]- 5991 Feb, [address] [address]- 0045 Feb, Arthritis M19.90 and Anxiety F41.[address] [address]403- 4018 Feb, [place] [address] 13140- 8350 Feb, [facility] [id number], [place] [address] 5[address] Feb, [facility] [id number] [place] [address], [place] [address]- 2636 Feb, [facility] [id number] [place] [address]- 7155 Feb, Anxiety F41.9 [facility] [id number] [place] [address] 96417- 2342 15 Feb, 2015 [facility] [id number] [place] [address], [place] [address]- 7705 Feb, [facility] [id number] [place] [address] 49233- 4291 Feb, 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 and Fibromyalgia M79.7 [facility] [id number] [place] [address] 34707- 8716 Feb, [facility] [address], [place] [address]- 6864 Jan, [facility] [id number] [place] [address], [place] [address]- 2875 Jan, [facility] [id number], [place] [address]- 3357 Jan, [facility] [address], [place] [address]- 6593 24 Jan, 2015 [facility] [address], [place] [address]- 2153 16 Jan, 2015 [facility] [id number] [place] [address], [place] [address]- 1542 08 Jan, 2015 [facility] [address], [place] [address]- 1086 Jan, [facility] [address] [address] Jan, [facility] [address] [facility] [id number], [place] [address] Dec, [facility] [id number] [place] [address] 57776- 4873 Dec, Left knee pain M25.562 [facility] [id number] [place] [address] 24469- 2165 Dec, Left knee pain M25.562 [facility] [id number] [place] [address] 63291- 3688 Dec, Fibromyalgia M79.7 ; Hypertension I10 and Arthritis M19.90 [facility] [id number] [place] [address] 88361- 8918 Dec, [facility] [id number] [place] [address] 43689- 8999 Dec, [facility] [id number] [place] [address] 19246- 3355 Dec, [facility] [id number] [place] [address] 96490- 6958 Dec, [facility] [id number] [place] [address] 48859- 6048 Nov, [facility] [address], [place] [address]- 7707 Nov, [facility] [id number] [place] [address] 50768- 6815 Nov, [facility] [address], [place] [address]- 2841 Nov, Hypertension I10 [facility] [id number] [place] [address] 70406- 2054 Oct, [facility] [address], [place] [address]- 9739 Oct, [facility] [id number], [place] [address]- 1736 Oct, [facility] [address] [id number], [place] [address]- 5204 Oct, [facility] [place] [facility] [address] [facility] [id number] 6972 Oct, [facility] [place] [facility] [address] [id number], [place] [address]- 0960 Sep, [facility] [place] [facility] [address] [id number], [place] [address]- 9289 Sep, [facility] [address] [id number] [place] [address] 95285- 0279 Sep, Hip pain associated with recalled total hip arthroplasty hardware 996.77 [facility] [place] [facility] [address] [id number], [place] [address]- 4839 Sep, [facility] [place] [facility] [address] [id number], [place] [address]- 3817 Sep, [facility] [place] [facility] [address] [id number], [place] [address]- 5024 Sep, [facility] [place] [facility] [address], [place] [address]- 1879 Aug, [facility] [place] [facility] [address] [id number], [place] [address]- 6912 Jul, [facility] [place] [facility] [address] [facility] [id number], [place] [address]- 2121 June, [facility] [place] [facility] [address] [facility] [id number], [place] [address]- 2080 June, [facility] [place] [facility] [address] [facility] [id number], [place] [address]- 1425 June, [facility] [place] [facility] [address] [facility] [id number], [place] [address]- 0878 June, [facility] [place] [facility] [address] [facility] [id number], [place] [address]- 9306 June, [facility] [place] [facility] [address] [id number] [place] [address]- 0598 June, [facility] [place] [facility] [address] [id number] [place] May, [facility] [place] [facility] [address] [id number] [place] [address]- 9901 May, [facility] [place] [facility] [address] [id number] [place] [address]- 7382 May, [facility] [place] [facility] [address] [id number] [place] [address]- 9953 Apr, [facility] [place] [facility] [address] [id number] [place] [address]- 2868 Apr, [facility] [place] [facility] [address] [id number] [place] [address]- 1152 Apr, [facility] [place] [facility] [address] [id number] [place] [address]- 2088 Apr, [facility] [place] [facility] [address] [id number] [place] [address]- 1563 Apr, [facility] [place] [facility] [address] [id number] [place] [address]- 7420 Apr, [facility] [place] [facility] [address] [id number] [place] [address]- 7848 Apr, [facility] [place] [facility] [address] [id number] [place] [address]- 3782 Apr, [facility] [place] [facility] [address] [id number] [place] [address]- 0838 Apr, [facility] [place] [facility] [address] [id number] [place] [address]- 8194 Apr, [facility] [place] [facility] [address] [id number] [place] [address]- 5030 Apr, [facility] [place] [facility] [address] [id number] [place] [address]- 1536 Mar, 2014 [facility] [place] [facility] [address] [id number] [place] [address]- 7366 Mar, 2014 [facility] [place] [facility] [address] [id number] [place] [address]- 0216 16 Mar, 2014 [facility] [place] [facility] [address] [id number] [place] [address]- 8236 16 Mar, 2014 [facility] [place] [facility] [address] [id number] [place] [address]- 4545 Mar, 2014 [facility] [place] [facility] [address] [id number] [place] [address]- 9120 Mar, [facility] [place] [facility] [address] [id number] [place] [address]- 4661 Feb, [facility] [place] [facility] [address] [id number] [place] [address]- 9473 Feb, [facility] [place] [facility] [address] [id number] [place] [address]- 4777 Feb, [facility] [place] [facility] [address] [facility] [id number] [place] [address]- 3812 Feb, [facility] [place] [facility] [address] [facility] [id number] [place] [address]- 4270 Jan, [facility] [place] [facility] [address] [id number] [place] [address]- 2542 Jan, [facility] [place] [facility] [address] [id number] [place] [address]- 5716 Jan, [facility] [place] [facility] [address] [id number] [place] [address]- 1106 Jan, [facility] [place] [facility] [address] [id number] [place] 7900 Dec, [facility] [place] [facility] [address] [id number] [place] [address]- 6815 Dec, [facility] [place] [facility] [address] [id number] [place] [address]- 2012 Dec, [facility] [place] [facility] [address] [id number] [place] [address]- 5687 Dec, [facility] [place] [facility] [address] [id number] [place] [address]- 1481 Dec, [facility] [place] [facility] [address] [id number] [place] [address]- 4585 Dec, [facility] [place] [facility] [address] [id number] [place] [address]- 0641 Dec, [facility] [place] [facility] [address] [id number] [place] [address]- 2601 Dec, [facility] [place] [facility] [address] [id number] [place] [address]- 9197 Dec, [facility] [place] [facility] [address] [id number], [place] [address]- 0796 Dec, [facility] [place] [facility] [address] [id number] [place] [address]- 7389 Dec, [facility] [place] [facility] [address] [id number], [place] [address]- 4903 Nov, [facility] [place] [facility] [address] [id number], [place] [address]- 4013 Nov, [facility] [place] [facility] [address] [id number], [place] [address]- 3116 28 Nov, 2013 [facility] [place] [facility] [address] [id number], [place] [address]- 3199 Nov, [facility] [place] [facility] [address] [id number], [place] [address]- 1925 17 Nov, 2013 [facility] [place] [facility] [address] [id number], [place] [address]- 2934 15 Nov, 2013 [facility] [place] [facility] [address] [id number] [place] [address]- 1807 15 Nov, 2013 [facility] [place] [facility] [address] [id number] [place] [address]- 9995 15 Nov, 2013 [facility] [place] [facility] [address] [id number] [place] [address]- 2006 15 Nov, 2013 [facility] [place] [facility] [address] [id number] [place] [address]- 3361 14 Nov, 2013 [facility] [place] [facility] [address] [id number] [place] [address]- 9292 14 Nov, 2013 [facility] [place] [facility] [address] [id number] [place] [address]- 4915 14 Nov, 2013 [facility] [place] [facility] [address] [id number] [place] [address]- 3074 14 Nov, 2013 [facility] [place] [facility] [address] [id number] [place] [address]- 9348 13 Nov, 2013 [facility] [place] [facility] [address] [id number] [place] [address]- 4029 13 Nov, 2013 [facility] [place] [facility] [address] [id number] [place] [address]- 9454 11 Nov, 2013 [facility] [place] [facility] [address] [id number] [place] [address]- 5659 11 Nov, 2013 [facility] [place] [facility] [address] [id number] [place] [address]- 1846 07 Nov, 2013 [facility] [place] [facility] [address] [id number], [place] [address]- 5253 07 Nov, 2013 [facility] [place] [facility] [address] [id number] [place] [address]- 8154 07 Nov, 2013 [facility] [place] [facility] [address] [id number] [place] [address]- 7281 07 Nov, 2013 [facility] [place] [facility] [address] [id number] [place] [address]- 1570 30 Oct, 2013 [facility] [place] [facility] [address] [id number] [place] [address]- 3088 30 Oct, 2013 [facility] [place] [facility] [address] [id number] [place] [address]- 8182 26 Oct, 2013 [facility] [place] [facility] [address] [id number] [place] [address]- 1824 26 Oct, 2013 [facility] [place] [facility] [address] [id number] [place] [address]- 1561 22 Oct, 2013 [facility] [place] [facility] [address] [id number] [place] [address]- 1479 22 Oct, 2013 [facility] [place] [facility] [address] [id number] [place] [address]- 5384 18 Oct, 2013 [facility] [place] [facility] [address] [id number] [place] [address]- 7949 18 Oct, 2013 [facility] [place] [facility] [address] [id number] [place] [address]- 3210 18 Oct, 2013 [facility] [place] [facility] [address] [id number] [place] [address]- 6663 18 Oct, 2013 [facility] [place] [facility] [address] [id number] [place] [address]- 6099 12 Oct, 2013 [facility] [place] [facility] [address] [id number] [place] [address]- 3201 Oct, 2013 [facility] [place] [facility] [address] [id number] [place] [address]- 6713 Oct, 2013 [facility] [place] [facility] [address] [id number] [place] [address]- 2545 Oct, 2013 [facility] [place] [facility] [address] [id number] [place] [address]- 3950 Sep, [facility] [place] [facility] [address] [id number] [place] [address]- 2455 Sep, [facility] [place] [facility] [address] [id number] [place] [address]- 3596 Sep, [facility] [place] [facility] [address] [id number] [place] [address]- 1624 Sep, [facility] [place] [facility] [address] [id number] [place] [address]- 4935 Sep, [facility] [place] [facility] [address] [id number] [place] [address]- 5382 Sep, [facility] [place] [facility] [address] [id number] [place] [address]- 3607 Sep, [facility] [place] [facility] [address] [id number] [place] [address]- 1040 Sep, [facility] [place] [facility] [address] [id number] [place] [address]- 5933 Sep, [facility] [place] [facility] [address] [id number] [place] [address]- 3980 Sep, [facility] [place] [facility] [address] [id number] [place] [address]- 1914 Sep, [facility] [place] [facility] [address] [id number] [place] [address]- 6368 Sep, [facility] [place] [facility] [address] [id number] [place] [address]- 0621 Sep, [facility] [place] [facility] [address] [id number] [place] [address]- 5853 Sep, [facility] [place] [facility] [address] [id number] [place] [address]- 2041 Sep, [facility] [place] [facility] [address] [id number] [place] [address]- 8950 Sep, [facility] [place] [facility] [address] [id number] [place] [address]- 8664 Sep, [facility] [place] [facility] [address] [id number] [place] [address]- 9928 Sep, [facility] [place] [facility] [address] [id number] [place] [address]- 5447 Aug, [facility] [place] [facility] [address] [id number] [place] [address]- 6808 Aug, [facility] [place] [facility] [address] [id number] [place] [address]- 6407 Aug, [facility] [place] [facility] [address] [id number] [place] [address]- 2195 Aug, [facility] [place] [facility] [address] [id number] [place] [address]- 5638 Aug, [facility] [place] [facility] [address] [id number] [place] [address]- 6108 Aug, [facility] [place] [facility] [address] [id number] [place] [address]- 6588 Jul, [facility] [place] [facility] [address] [id number] [place] [address]- 6158 Jul, [facility] [address] [id number] [place] [address]- 2354 Jul, [facility] [place] [facility] [address] [id number] [place] [address]- 6337 Jul, [facility] [place] [facility] [address] [id number] [place] [address]- 1169 June, [facility] [place] [facility] [address] [id number] [place] [address]- 0452 June, [facility] [place] [facility] [address] [id number] [place] [address]- 6742 June, [facility] [place] [facility] [address] [id number] [place] [address]- 4545 June, [facility] [place] [facility] [address] [id number] [place] [address]- 9125 June, [facility] [place] [facility] [address] [id number] [place] [address]- 9115 June, [facility] [place] [facility] [address] [id number] [place] [address]- 8988 June, [facility] [place] [facility] [address] [id number] [place] [address]- 9258 May, [facility] [place] [facility] [address] [id number] [place] [address]- 8310 May, [facility] [place] [facility] [address] [id number] [place] [address]- 9463 May, [facility] [place] [facility] [address] [id number] [place] [address]- 4699 May, [facility] [place] [facility] [address] [id number] [place] [address]- 0175 May, [facility] [place] [facility] [address] [id number] [place] [address]- 1573 May, [facility] [place] [facility] [address] [id number] [place] [address]- 3339 Apr, [facility] [place] [facility] [address] [id number] [place] [address]- 6202 31 Apr, 2013 [facility] [place] [facility] [address] [id number] [place] [address]- 0972 Apr, [facility] [place] [facility] [address] [id number] [place] [address]- 2739 28 Apr, 2013 [facility] [place] [facility] [address] [id number] [place] [address]- 8246 14 Apr, 2013 [facility] [place] [facility] [address] [id number] [place] [address]- 4887 14 Apr, 2013 [facility] [place] [facility] [address] [id number] [place] [address]- 3559 Apr, [facility] [place] [facility] [address] [id number] [place] 3115 Apr, [facility] [place] [facility] [address] [id number] [place] [address]- 7488 10 Apr, 2013 [facility] [place] [facility] [address] [id number] [place] [address]- 3833 10 Apr, 2013 [facility] [place] [facility] [address] [id number] [place] [address]- 2402 Apr, [facility] [place] [facility] [address] [id number] [place] [address]- 3789 Apr, [facility] [place] [facility] [address] [id number] [place] [address]- 3752 Apr, [facility] [place] [facility] [address] [id number] [place] [address]- 8332 Apr, [facility] [place] [facility] [address] [id number] [place] [address]- 4577 Mar, [facility] [place] [facility] [address] [id number] [place] [address]- 1089 Mar, [facility] [place] [facility] [address] [id number] [place] [address]- 9342 Mar, [facility] [place] [facility] [address] [id number] [place] [address]- 2351 Feb, [facility] [place] [facility] [address] [id number] [place] [address]- 5633 Feb, [facility] [place] [facility] [address] [id number] [place] [address]- 1048 Feb, [facility] [place] [facility] [address] [id number] [place] [address]- 5853 Feb, [facility] [place] [facility] [address] [id number] [place] [address]- 0627 Feb, [facility] [place] [facility] [address] [id number] [place] [address]- 4452 Feb, [facility] [place] [facility] [address] [id number] [place] [address]- 5852 Feb, [facility] [place] [facility] [address] [id number] [place] [address]- 3262 Feb, [facility] [address] [id number] [place] [address]- 1191 Feb, [facility] [address] [id number] [place] [address]- 0537 Feb, [facility] [address] [id number] [place] [address]- 9929 Jan, [facility] [address] [id number] [place] [address] Jan, [facility] [address] [id number] [place] [address] Jan, [facility] [address] [id number] [place] [address] Jan, [facility] [address] [id number] [place] [address] Jan, [facility] [address] [id number] [place] [address] Jan, [facility] [address] [id number] [place] [address] Jan, [facility] [address] [id number] [place] [address] Jan, [facility] [address] [id number] [place] [address] Jan, [facility] [address] [id number] [place] [address] Jan, [facility] [place] [facility] [address] [id number] [place] [address] Jan, [facility] [address] [id number] [place] [address] 8[address] Jan, [facility] [address] [id number] [place] [address] Jan, [facility] [place] [facility] [address] [id number] [place] [address]- [address] Jan, [facility] [place] [facility] [address] [id number] [place] [address] Jan, [facility] [place] [facility] [address] [id number] [place] [address]- [address] Jan, [facility] [place] [facility] [address] [id number] [place] [address] Jan, [facility] [place] [facility] [address] [id number] [place] [address] 17[address] Jan, [facility] [place] [facility] [address] [id number] [place] [address] 3978 Jan, [facility] [place] [facility] [address] [id number] [place] [address] Jan, [facility] [place] [facility] [address] [id number] [place] [address] 8301 Jan, [facility] [place] [facility] [address] [id number] [place] [address] Dec, [facility] [place] [facility] [address] [id number] [place] [address]- [address] Dec, [facility] [place] [facility] [address] [id number], [place] [address] Dec, [facility] [place] [facility] [address] [id number], [place] [address] Dec, [facility] [place] [facility] [address] [id number] [place] [address] Dec, [facility] [place] [facility] [address] [id number] [place] [address]187 Dec, [facility] [place] [facility] [address] [id number] [place] [address] Dec, [facility] [place] [facility] [address] [id number] [place] [address]- 3466 Dec, [facility] [place] [facility] [address] [id number] [place] [address]- 2657 Dec, [facility] [place] [facility] [address] [id number] [place] [address] Dec, [facility] [place] [facility] [address] [id number] [place] [address]99 Nov, [facility] [place] [facility] [address] [id number] [place] [address]- 48[address] Nov, [facility] [place] [facility] [address] [id number] [place] [address] Nov, [facility] [place] [facility] [address] [id number] [place] [address] Nov, [facility] [place] [facility] [address] [id number] [place] [address] 1245 Nov, [facility] [place] [facility] [address] [id number] [place] [address] Nov, [facility] [place] [facility] [address] [id number] [place] [address]- [address] Nov, [facility] [place] [facility] [address] [id number] [place] [address]- 1279 Nov, [facility] [place] [facility] [address] [id number] [place] [address]- [address] 10 Nov, 2012 [facility] [place] [facility] [address] [id number] [place] [address] Nov, [facility] [place] [facility] [address] [id number] [place] [address] Oct, [facility] [place] [facility] [address] [id number] [place] [address] 0668 Oct, [facility] [place] [facility] [address] [id number] [place] [address]- [address] Oct, [facility] [address] [id number] [place] [address]- 1767 Oct, [facility] [place] [facility] [address] [id number] [place] [address]- 8668 Oct, [facility] [place] [facility] [address] [id number] [place] [address]- 1664 Sep, [facility] [place] [facility] [address] [id number] [place] [address]- [address] Sep, [facility] [place] [facility] [address] [id number] [place] [address]- [address] Aug, [facility] [place] [facility] [address] [id number] [place] [address]- [address] Aug, [facility] [place] [facility] [address] [id number] [place] [address]- 0071 Aug, [facility] [place] [facility] [address] [id number] [place] [address]- [address]557 Aug, [facility] [place] [facility] [address] [id number] [place] [address]- 384[address] Aug, [facility] [place] [facility] [address] [id number] [place] [address]- 1612 Aug, [facility] [place] [facility] [address] [id number] [place] [address]- 4991 Aug, [facility] [place] [facility] [address] [id number], [place] [address] Jul, [facility] [place] [facility] [address] [id number] [place] [address]- [address] Jul, [facility] [place] [facility] [address] [id number] [place] [address] 2010 June, [facility] [place] [facility] [address] [id number] [place] [address] 9[address] June, [facility] [place] [facility] [address] [id number], [place] [address] June, [facility] [address] [id number] [place] [address]- 2969 June, [facility] [address] [id number] [place] [address] June, [facility] [address] [id number] [place] [address] 7326 June, [facility] [address] [id number] [place] [address]- [address] June, [facility] [address] [id number] [place] [address]- 3[address] June, [facility] [address] [id number] [place] [address]- [address]20 June, [facility] [address] [id number] [place] [address] June, [facility] [facility] [address] [id number] [place] [address] June, [facility] [address] [id number] [place] [address] May, [facility] [address] [id number] [place] [address] May, [facility] [address] [id number] [place] [address] 3569 May, [facility] [address] [id number] [place] [address] 75[address] May, [facility] [address] [id number] [place] [address] Apr, [facility] [address] [id number] [place] Apr, [facility] [address] [id number] [place] [address] Apr, [facility] [address] [id number] [place] [address] Mar, [facility] [address] [id number] [place] [address] 359[address] Mar, [facility] [place] [facility] [address] [id number] [place] [address] 6[address] Feb, [facility] [address] [id number] [place] [address] 7871 Feb, [facility] [address] [id number] [place] [address]- 3[address] Feb, [facility] [address] [id number] [place] [address] 6961 Feb, [facility] [address] [id number] [place] [address] 1320 Feb, [facility] [address] [id number] [place] [address] 17[address] Feb, [facility] [address] [id number] [place] [address] 1187 Feb, [facility] [address] [id number] [place] [address] 9[address] Jan, [facility] [address] [id number] [place] [address] 379[address] Jan, [facility] [address] [id number] [place] [address] Jan, [facility] [place] [facility] [address] [id number] [place] [address] 8096 Jan, [facility] [place] [facility] [address] [id number] [place] [address]- 7839 Jan, [facility] [place] [facility] [address] [id number] [place] [address]- 7746 Jan, [facility] [place] [facility] [address] [id number] [place] [address] 3635 Jan, [facility] [place] [facility] [address] [id number] [place] [address]- 5072 Jan, [facility] [place] [facility] [address] [id number] [place] [address] Jan, [facility] [place] [facility] [address] [facility] [id number] [place] [address] 9606 Jan, [facility] [place] [facility] [address] [id number] [place] [address]- 9130 Jan, [facility] [place] [facility] [address] [id number] [place] [address]- 8592 Dec, [facility] [place] [facility] [address] [id number] [place] [address]- 5028 Dec, [facility] [place] [facility] [address] [id number] [place] [address] 3840 Dec, [facility] [place] [facility] [address] [id number] [place] [address] 8404 Dec, [facility] [place] [facility] [address] [id number] [place] [address]- 1082 Nov, [facility] [place] [facility] [address] [id number] [place] [address]- 5723 Nov, [facility] [place] [facility] [address] [id number], [place] [address] Nov, [facility] [place] [facility] [address] [id number], [place] [address] 27 Oct, 2011 [facility] [place] [facility] [address] [id number] [place] [address] 9925 24 Oct, 2011 [facility] [place] [facility] [address] [facility] [id number] [place] [address]- 8943 21 Oct, 2011 [facility] [place] [facility] [address] [id number] [place] [address] 4440 10 Oct, 2011 [facility] [place] [facility] [address] [id number] [place] [address]- 4688 07 Oct, 2011 [facility] [address] [id number] [place] [address]- 1576 04 Oct, 2011 [facility] [place] [facility] [address] [id number] [place] [address] 2546 04 Oct, 2011 [facility] [address] [id number] [place] [address]- 5410 29 Sep, 2011 [facility] [place] [facility] [address] [id number] [place] [address] 54[address] Sep, [facility] [address] [id number] [place] [address]23 Sep, [facility] [address] [id number] [place] [address]- 4767 Sep, [facility] [address] [id number] [place] [address]- 4949 Sep, [facility] [address] [id number] [place] [address] 6709 30 Aug, 2011 [facility] [place] [facility] [address] [id number] [place] [address] 8854 Aug, [facility] [address] [id number] [place] [address]- 1816 17 Aug, 2011 [facility] [place] [facility] [address] [id number] [place] [address] 2546 16 Aug, 2011 [facility] [place] [facility] [address] [id number] [place] [address] 4459 13 Aug, 2011 [facility] [place] [facility] [address] [id number] [place] [address] 0032 Aug, [facility] [place] [facility] [address] [id number] [place] [address] Aug, [facility] [place] [facility] [address] [id number] [place] [address]- 2093 Jul, [facility] [place] [facility] [address] [id number] [place] [address]- 3789 26 Jul, 2011 [facility] [place] [facility] [address] [id number] [place] [address] 4183 Jul, [facility] [place] [facility] [address] [id number] [place] [address] 8002 Jul, [facility] [place] [facility] [address] [id number] [place] [address] 3774 Jul, [facility] [place] [facility] [address] [id number] [place] [address]- 6127 Jul, [facility] [place] [facility] [address] [id number] [place] [address]- 5088 07 Jul, 2011 [facility] [place] [facility] [address] [id number] [place] [address]- 0033 06 Jul, 2011 [facility] [place] [facility] [address] [id number] [place] [address]- 4174 05 Jul, 2011 [facility] [place] [facility] [address] [id number] [place] [address]- 2418 June, [facility] [place] [facility] [address] [id number] [place] [address]- 5530 June, [facility] [place] [facility] [address] [id number] [place] [address]- 9681 June, [facility] [place] [facility] [address] [id number] [place] [address]- 7787 June, [facility] [place] [facility] [address] [id number] [place] [address]- 1005 June, [facility] [place] [facility] [address] [id number] [place] [address]- 1465 June, [facility] [place] [facility] [address] [id number] [place] [address]- 7716 June, [facility] [place] [facility] [address] [id number] [place] [address]- 9866 June, [facility] [address] [id number] [place] [address]- 2886 May, [facility] [place] [facility] [address] [id number] [place] [address]- 2456 23 May, 2011 [facility] [place] [facility] [address] [id number] [place] [address]- 0536 May, [facility] [place] [facility] [address] [id number] [place] [address]- 8499 May, [facility] [place] [facility] [address] [id number] [place] [address]- 1014 May, [facility] [place] [facility] [address] [id number] [place] [address]- 2899 May, [facility] [address] [facility] [id number] [place] [address]- 1756 May, [facility] [place] [facility] [address] [id number] [place] [address]- 4119 Apr, [facility] [place] [facility] [address] [id number] [place] [address]- 2748 Apr, [facility] [place] [facility] [address] [facility] [id number] [place] [address]- 7650 Apr, [facility] [place] [facility] [address] [id number] [place] [address]- 2675 Apr, [facility] [place] [facility] [address] [id number] [place] [address]- 5459 Apr, [facility] [place] [facility] [address] [id number] [place] [address]- 3978 Apr, [facility] [place] [facility] [address] [facility] [id number] [place] [address]- 1458 Apr, [facility] [place] [facility] [address] [facility] [id number] [place] [address]- 6823 Mar, [facility] [place] [facility] [address] [id number] [place] [address]- 8506 20 Mar, 2011 [facility] [address] [id number] [place] [address]- 8926 14 Mar, 2011 [facility] [place] [facility] [address] [id number] [place] [address]- 2546 13 Mar, 2011 [facility] [place] [facility] [address] [id number] [place] [address]- 2246 Mar, [facility] [address] [id number] [place] [address]- 1470 Mar, [facility] [address] [id number] [place] [address]- 0826 Mar, [facility] [address] [facility] [id number] [place] [address]- 1981 Feb, [facility] [address] [id number] [place] [address]- 5376 Feb, [facility] [address] [id number] [place] [address]- 8540 Feb, [facility] [address] [id number] [place] [address]- 0482 Feb, [facility] [place] [facility] [address] [facility] [id number] [place] [address]- 1400 Feb, [facility] [place] [facility] [address] [id number] [place] [address]- 4001 Feb, [facility] [place] [facility] [address] [id number] [place] [address]- 7471 Feb, [facility] [place] [facility] [address] [id number] [place] [address]- 3656 Feb, [facility] [place] [facility] [address] [id number] [place] [address]- 6506 Feb, [facility] [place] [facility] [address] [id number] [place] [address]- 0970 Feb, [facility] [place] [facility] [address] [id number] [place] [address]- 8955 Jan, [facility] [place] [facility] [address] [id number] [place] [address]- 2376 Jan, [facility] [place] [facility] [address] [id number] [place] [address]- 4646 Jan, [facility] [place] [facility] [address] [id number] [place] [address]- 1441 Jan, [facility] [place] [facility] [address] [id number] [place] [address]- 5696 Jan, [facility] [place] [facility] [address] [id number] [place] [address]- 8235 Jan, [facility] [place] [facility] [address] [id number] [place] [address]- 5103 Jan, [facility] [place] [facility] [address] [id number] [place] [address]- 3460 Jan, [facility] [place] [facility] [address] [id number] [place] [address]- 1867 Jan, [facility] [place] [facility] [address] [id number] [place] [address]- 4569 Jan, [facility] [place] [facility] [address] [id number] [place] [address]- 9522 Jan, [facility] [place] [facility] [address] [id number] [place] [address]- 5228 Dec, [facility] [place] [facility] [address] [id number] [place] [address]- 7182 Dec, [facility] [place] [facility] [address] [id number] [place] [address]- 0583 Dec, [facility] [place] [facility] [address] [id number] [place] [address]- 9784 16 Dec, 2010 [facility] [place] [facility] [address] [id number] [place] [address]- 5483 14 Dec, 2010 [facility] [place] [facility] [address] [id number] [place] [address]- 8828 09 Dec, 2010 [facility] [place] [facility] [address] [id number] [place] [address]- 8062 08 Dec, 2010 [facility] [place] [facility] [address] [id number] [place] [address]- 4708 Dec, [facility] [place] [facility] [address] [id number] [place] [address]- 8250 Dec, [facility] [place] [facility] [address] [id number] [place] [address]- 2325 Nov, [facility] [place] [facility] [address] [id number] [place] [address]- 9899 Nov, [facility] [place] [facility] [address] [id number] [place] [address]- 0300 Nov, [facility] [place] [facility] [address] [id number] [place] [address]- 8478 Nov, [facility] [place] [facility] [address] [id number] [place] [address]- 2843 24 Nov, 2010 [facility] [place] [facility] [address] [id number] [place] [address]- 3370 Nov, [facility] [place] [facility] [address] [id number] [place] [address]- 1979 Aug, [facility] [place] [facility] [address] [id number] [place] [address]- 4059 14 Feb, 2010 [facility] [place] [facility] [address] [id number] [place] [address]- 4519 14 Jan, 2010 [facility] [place] [facility] [address] [id number] [place] [address] 2546 Jan, [facility] [place] [facility] [address] [id number] [place] [address]- 1904 Jan, [facility] [address] [id number] [address] Jan, [facility] [address] [facility] [id number], [place] [address]- 7369 Jan, [facility] [address] [facility] [id number], [place] [address]- 2758 Dec, [facility] [address] [facility] [id number], [place] [address]- 9713 Dec, [facility] [address] [facility] [id number][place] [address]7 Dec, [facility] [address] [facility] [id number] [address] Dec, [facility] [id number], [place] [address]- 8209 Nov, [facility] [address] [id number], [place] [address]- [address]88 Nov, [facility] [address] [id number], [place] [address]- 7[address] Nov, IMMUNIZATIONS No Known Immunizations SOCIAL HISTORY Never Assessed REASON FOR VISIT knot on head/abcess- hx of MRSA JStrasserRN PLAN OF CARE Activity Details Follow Up prn Reason: VITAL SIGNS Height 68 in 2017-05-22 Weight 212 lbs 2017-05-22 Temperature 98.0 degrees Fahrenheit 2017-05-22 Heart Rate 88 bpm 2017-05-22 Respiratory Rate 18 2017-05-22 BMI 32.23 kg/m2 2017-05-22 Blood pressure systolic 100 mmHg 2017-05-22 Blood pressure diastolic 70 mmHg 2017-05-22 MEDICATIONS Medication Instructions Dosage Frequency Start Date End Date Duration Status Promethazine HCl 25 MG Orally every 12 hrs 1 tablet as needed 12h 30 Active Abilify 2 MG Orally Once a day 2 tablets 24h 30 days Active Nabumetone 500 MG Orally Twice a day 1 tablet 12h 30 Active Fentanyl 50 MCG/HR Transdermal 72hrs 1 patch to skin Mar, 30 days Active Fluoxetine HCl 40 mg Orally Once a day 2 capsule in the morning 24h 30 Active Clonidine HCl 0.1 MG Orally twice a day 1 tablet 12h 30 Active Tizanidine HCl 4 MG Orally Three times a day 1 tablet as needed 8h 03 May, 2017 Active Aspirin 81 MG Orally Once a day 1 tablet 24h 30 Active Lyrica 150 MG Orally 3 times a day 1 capsule 8h 28 days Active Pantoprazole Sodium 40 mg Orally Once a day 1 tablet 24h 30 days Active Furosemide 20 MG Orally Once a day ONE TABLET 24h 30 Active Sumatriptan Succinate 100 mg Orally Once a day 1 tablet as needed one time 24h 30 Active Levaquin 500 MG Orally Once a day 1 tablet 24h 12 May, 2017 May, 10 day(s) Active Klonopin 1 MG Orally 3 times a day 1 tablet 8h 05 days Active RESULTS No Results PROCEDURES Procedure Date Ordered Result Body Site URINALYSIS, AUTO, W/O SCOPE May 22, 2017 LAB NOT BILLED BY [facility] May 22, 2017 INSTRUCTIONS MEDICATIONS ADMINISTERED No Known Medications [...]
--- OUTSIDE RECORDS SUMMARY | 2018-01-13 20:56 | XMS REPORT ---
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 [id number] [address] Aug, Arthritis M19.90 [facility] [address] [facility] [id number], [place] [address] Aug, [facility] [address] [place] [address] 38959- 4946 Aug, Obesity (BMI 30.0-34.9) E66.9 ; Unspecified episodic mood disorder F39 and Hypertension I10 [facility] [id number] [place] [address] 86277- 3527 Aug, Unspecified episodic mood disorder F39 [facility] [id number] [place] [address] 35495- 6031 Aug, [facility] [id number] [place] [address] 35502- 7122 Jul, Unspecified episodic mood disorder F39 [facility] [id number] [place] [address] 57574- 9443 Jul, [place] [id number] [place] [address] 27570- 8268 Jul, Arthritis M19.90 [facility] [id number] [place] [address] 19956- 0321 Jul, Left hip pain M25.552 ; Hypertension I10 ; Other obesity due to excess calories E66.09 and Body mass index (BMI) of 34.0-34.9 in adult Z68.34 [facility] [id number] [place] [address] 73369- 5706 Jul, Unspecified episodic mood disorder F39 [facility] [id number] [place] [address] 95335- 9200 June, Gastroesophageal reflux disease, esophagitis presence not specified K21.9 [facility] [id number] [place] [address] 48876- 9986 June, [facility] [id number] [place] [address] 57588- 0806 June, [facility] [id number] [place] [address] 81656- 9376 June, Arthritis M19.90 [facility] [address], [place] [address] 09[address] June, [facility] [id number] [place] [address] 61680- 4759 June, [facility] [address] [place] [address] 12504- 3140 June, Unspecified episodic mood disorder F39 [facility] [id number] [place] [address] 50534- 3879 May, Unspecified episodic mood disorder F39 [facility] [id number] [place] [address] 72856- 7779 May, [facility] [id number] [place] [address] 05610- 2840 May, Arthritis M19.90 [facility] [id number] [place] [address] 64610 -7470 May, Dysuria R30.0 ; Abscess L02.91 and Acute cystitis without hematuria N30.00 [facility] [address] [place] [address] 26635- 2913 May, 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 ; Unspecified episodic mood disorder F39 ; Combined drug dependence excluding opioids, 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 ; Anxiety F41.9 and Other psychoactive substance dependence, 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 [facility] [address] [place] [address] 55240- 0144 May, [facility] [address] [place] [address] 37011- 3176 May, 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 ; Unspecified episodic mood disorder F39 ; Combined drug dependence excluding opioids, 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 ; Other psychoactive substance dependence, 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 and Anxiety F41.9 [facility] [address] [place] [address] 03413- 1729 May, Other chronic pain G89.29 ; Left hip pain M25.552 ; Hypertension I10 ; 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, 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 and Unspecified episodic mood disorder F39 [facility] [address] [place] [address] 50561- 2536 Apr, [facility] [id number] [place] [address] 89534 -3869 Apr, Neck pain M54.2 ; Left hip pain M25.552 and Fall, initial encounter W19.XXXA [facility] [id number] [place] [address] 68547- 5776 Apr, Unspecified episodic mood disorder F39 ; Combined drug dependence excluding opioids, 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 ; Anxiety F41.9 ; Other psychoactive substance dependence, 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 and 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 [facility] [id number] [place] [address] 13491- 4129 Apr, [facility] [id number] [place] [address] 69243- 8795 Apr, Arthritis M19.90 and Unspecified episodic mood disorder F39 [facility] [id number] [place] [address] 91623- 3586 Apr, Unspecified episodic mood disorder F39 [facility] [id number] [place] [address] 06924- 3203 Apr, [facility] [id number] [place] [address] 33295- 4653 Apr, [facility] [id number] [place] [address] 01844- 9199 Apr, Unspecified episodic mood disorder F39 ; Combined drug dependence excluding opioids, 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 ; Anxiety F41.9 ; Other psychoactive substance dependence, 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 and Other disorder of impulse control F63.89 [facility] [id number] [place] [address] 48614- 9852 Mar, Unspecified episodic mood disorder F39 [facility] [address], [place] [address] 84[address] Mar, Gastroesophageal reflux disease, esophagitis presence not specified K21.9 [facility] [address], [place] [address] 6196 Mar, Arthritis M19.90 and Unspecified episodic mood disorder F39 [facility] [id number] [place] [address] 27917- 7436 Feb, [facility] [address] [place] [address] 76364- 4813 Feb, [facility] [id number] [place] [address] 21394- 6909 Feb, [facility] [id number] [place] [address] 15087- 0076 Feb, Arthritis M19.90 [facility] [id number] [place] [address] 93195- 0216 Feb, Non-pressure chronic ulcer of right calf, 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 ; Unspecified episodic mood disorder F39 and Left hip pain M25.552 [facility] [address], [place] [address] 9[address] Feb, [facility] [address] [place] [address] 19663- 1949 Feb, [facility] [address] [place] [address] 12570- 1371 Jan, Arthritis M19.90 [facility] [id number] [place] [address] 53421- 2676 Jan, Left hip pain M25.552 and Non-pressure chronic ulcer of right calf, 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 [facility] [address], [place] [address] 0079 Jan, Chronic hepatitis C without hepatic coma B18.2 [facility] [address] [place] [address] 67808- 6156 Jan, Encounter for immunization Z23 ; Venous insufficiency ( chronic) (peripheral) I87.2 ; Non-pressure chronic ulcer of unspecified calf limited to breakdown of skin L97.201 and Gastroesophageal reflux disease, esophagitis presence not specified K21.9 [facility] [id number] [place] [address] 46319- 1584 Jan, [facility] [id number] [place] [address] 78519- 6472 Jan, Chronic hepatitis C without hepatic coma B18.2 and Encounter for immunization Z23 [facility] [id number] [place] [address] 24017- 6184 Jan, Arthritis M19.90 [facility] [id number] [place] [address] 76573- 6116 Jan, [facility] [id number] [place] [address] 01537- 8123 Dec, [facility] [id number] [place] [address] 61700- 5593 Dec, Unspecified episodic mood disorder F39 [facility] [id number] [place] [address] 52341- 2853 Dec, Arthritis M19.90 [facility] [id number] [place] [address] 15490- 0037 Dec, Arthritis M19.90 [facility] [id number] [place] [address] 32730- 4776 Nov, [facility] [id number] [place] [address] 57254- 4613 Nov, [facility] [id number] [place] [address] 23872- 9991 Nov, Other psychoactive substance dependence, 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 ; 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, 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 and Chronic hepatitis C without hepatic coma B18.2 [facility] [address] [place] [address] 97443- 5948 Nov, Arthritis M19.90 [facility] [address] [place] [address] 37605 -3539 Oct, Partial thickness burn of abdomen, initial encounter T21.22XA [facility] [id number] [place] [address] 10823- 3306 Oct, [facility] [id number] [place] [address] 92297- 8895 Sep, Arthritis M19.90 [facility] [id number] [place] [address] 48351- 1867 Sep, [facility] [id number] [place] [address] 26487- 7978 Sep, [facility] [id number] [place] [address] 07753- 7443 Sep, Unspecified episodic mood disorder F39 ; Chronic hepatitis C without hepatic coma B18.2 and Left hip pain M25.552 [facility] [id number] [place] [address] 56966- 4982 Sep, Arthritis M19.90 and Left hip pain M25.552 [facility] [id number] [place] [address] 48388- 1530 Aug, [facility] [id number] [place] [address] 13651- 6148 Aug, [facility] [id number] [place] [address] 16428- 1103 Aug, Chronic hepatitis C without hepatic coma B18.2 [facility] [id number] [place] [address] 92017- 3412 Aug, [facility] [id number] [place] [address] 10130- 0038 Aug, Chronic hepatitis C without hepatic coma B18.2 [facility] [address] [place] [address] 46645- 2663 Aug, 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, 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 [facility] [id number] [place] [address] 89632- 2472 Aug, [facility] [id number] [place] [address] 83570- 8369 Aug, Chronic hepatitis C without hepatic coma B18.2 and Hypertension I10 [facility] [id number] [place] [address] 98373- 2222 Jul, [facility] [id number] [place] [address] 35703- 1821 June, [facility] [id number] [place] [address] 15123- 9231 Apr, Fibromyalgia M79.7 ; Left hip pain M25.552 and Decubitus ulcer of sacral region, stage 1 L89.151 [facility] [id number] [place] [address] 68152- 7108 Apr, [facility] [id number] [place] [address] 54702- 7922 Apr, [facility] [id number] [place] [address] 56441- 3357 Feb, [facility] [id number] [place] [address] 89984- 2344 Dec, Anxiety F41.9 ; Combined drug dependence excluding opioids, 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 and Unspecified episodic mood disorder F39 [facility] [address] [place] [address] 91259- 2373 Dec, [facility] [id number] [place] [address] 52227- 7933 Nov, [facility] [id number] [place] [address] 94578- 2765 Nov, [facility] [id number] [place] [address] 40322- 7503 Nov, Other disorder of impulse control F63.89 and Anxiety F41.9 [facility] [id number] [place] [address] 86709- 8872 Oct, [facility] [id number] [place] [address] 27081 -2907 14 Oct, 2015 Open wound of left thigh, initial encounter S71.102A [facility] [id number] [place] [address] 39884- 2048 Oct, [facility] [id number] [place] [address] 17931- 9697 Sep, Unspecified episodic mood disorder F39 ; Other disorder of impulse control 312.39 ; Combined drug dependence excluding opioids, 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 and Anxiety F41.9 [facility] [address] [place] [address] 56704- 1254 Sep, Other disorder of impulse control 312.39 ; Combined drug dependence excluding opioids, 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 ; Anxiety F41.9 and Unspecified episodic mood disorder F39 [facility] [address] [place] [address] 03385- 0858 Sep, Other chronic pain G89.29 [facility] [id number] [place] [address] 77936- 3521 Sep, [facility] [address] [place] [address] 08498- 8426 Sep, [facility] [id number] [place] [address] 16556- 7374 Aug, [facility] [address] [place] [address] 65428- 9813 Aug, [facility] [id number] [place] [address] 68744- 6993 Aug, [facility] [address] [place] [address] 02370- 1812 Jul, [facility] [id number] [place] [address] 61126- 1068 Jul, [facility] [id number] [place] [address] 57179- 6135 Jul, [facility] [id number] [place] [address] 65479- 1561 Jul, Arthritis M19.90 ; Chronic hepatitis C without hepatic coma B18.2 and Left hip pain M25.552 [facility] [id number] [place] [address] 52317- 3809 Jul, Left knee pain M25.562 [facility] [id number] [place] [address] 22670- 5051 Jul, Combined drug dependence excluding opioids, 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 ; Anxiety F41.9 ; Other disorder of impulse control 312.39 and Unspecified episodic mood disorder F39 [facility] [id number] [place] [address] 56123- 3185 Jul, Left knee pain M25.562 [facility] [address] [place] [address] 47729- 7224 Jul, Left knee pain M25.562 and Left hip pain M25.552 [facility] [address] [place] [address] 57460- 5640 Jul, [facility] [address] [place] [address] 07062- 0666 June, [facility] [id number] [place] [address] 23363- 3993 June, Combinations of drug dependence excluding opioid type drug, unspecified abuse 304.80 ; Other disorder of impulse control 312.39 ; Unspecified episodic mood disorder F39 and Anxiety F41.9 [place] [address], [place] [address]- 4695 June, Other fatigue R53.83 ; Headache R51 and Left knee pain M25.562 [facility] [id number] [place] [address] 98063- 5900 June, Unspecified episodic mood disorder F39 ; Combinations of drug dependence excluding opioid type drug, unspecified abuse 304.80 ; Other disorder of impulse control 312.39 and Anxiety F41.9 [facility] [id number] [place] [address] 63477- 4246 June, Anxiety F41.9 [place] [id number] [place] [address] 14252- 6531 June, Pain in left knee M25.562 [place] [id number] [place] [address] 76470- 7573 June, Anxiety F41.9 and Combinations of drug dependence excluding opioid type drug, unspecified abuse 304.80 [place] [address] [place] [address] 88057- 0779 June, Unspecified episodic mood disorder 296.90 ; Combinations of drug dependence excluding opioid type drug, unspecified abuse 304.80 and Other disorder of impulse control 312.39 [place] [address] [address]- 3511 June, Anxiety F41.9 and Unspecified episodic mood disorder 296.90 [facility] [address] [place] [address] 59615- 5750 May, Arthritis M19.90 [facility] [id number] [place] [address] 80020- 6295 May, Arthritis M19.90 [facility] [address] [place] [address] 96613- 9035 May, Anxiety F41.9 ; Combinations of drug dependence excluding opioid type drug, unspecified abuse 304.80 and Other disorder of impulse control 312.39 [place] [address], [place] [address]- 6743 18 May, 2015 Left knee pain M25.562 [facility] [address], [place] [address]- 2031 14 May, 2015 Arthritis M19.90 [facility] [address], [place] [address]- 0907 May, [facility] [address] [place] [address] 53361- 7578 May, Anxiety F41.9 ; Unspecified episodic mood disorder 296.90 ; Combinations of drug dependence excluding opioid type drug, unspecified abuse 304.80 and Other disorder of impulse control 312.39 [facility] [address], [place] [address]- 4229 May, Left knee pain M25.562 [facility] [address] [place] [address] 50386- 4587 11 May, 2015 Left knee pain M25.562 ; Combinations of drug dependence excluding opioid type drug, unspecified abuse 304.80 ; Other disorder of impulse control 312.39 ; Fibromyalgia M79.7 ; Hypertension I10 ; Unspecified episodic mood disorder 296.90 and Left hip pain M25.552 [facility] [address] [place] [address]- 4861 May, Unspecified episodic mood disorder 296.90 ; Other disorder of impulse control 312.39 ; Combinations of drug dependence excluding opioid type drug, unspecified abuse 304.80 and Anxiety F41.9 [facility] [address] [place] [address] 80947- 8073 May, Left knee pain M25.562 ; Combinations of drug dependence excluding opioid type drug, unspecified abuse 304.80 ; Other disorder of impulse control 312.39 ; Fibromyalgia M79.7 ; Hypertension I10 ; Unspecified episodic mood disorder 296.90 and Left hip pain M25.552 [facility] [address] [place] [address] 30037- 9853 May, Anxiety F41.9 ; Unspecified episodic mood disorder 296.90 ; Other disorder of impulse control 312.39 and Combinations of drug dependence excluding opioid type drug, unspecified abuse 304.80 [facility] [address] [place] [address] 27644- 0336 30 Apr, 2015 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 and 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, implants and grafts, initial encounter T84.82XA [facility] [id number] [place] [address] 57825- 8090 Apr, Anxiety F41.9 ; Unspecified episodic mood disorder 296.90 ; Combinations of drug dependence excluding opioid type drug, unspecified abuse 304.80 and Other disorder of impulse control 312.39 [facility] [id number] [place] [address] 46819- 7910 Apr, Arthritis M19.90 [facility] [id number] [place] [address] 47888- 3639 Apr, Anxiety F41.9 ; Unspecified episodic mood disorder 296.90 ; Combinations of drug dependence excluding opioid type drug, unspecified abuse 304.80 and Other disorder of impulse control 312.39 [facility] [id number] [place] [address] [phone] 17 Apr, 2015 Arthritis M19.90 [facility] [id number] [place] [address] [phone] 15 Apr, 2015 [facility] [id number] [place] [address] [phone] 15 Apr, 2015 [facility] [id number] [place] [address] [phone] 14 Apr, 2015 Unspecified episodic mood disorder 296.90 ; Combinations of drug dependence excluding opioid type drug, unspecified abuse 304.80 ; Other disorder of impulse control 312.39 and Anxiety F41.9 [facility] [id number] [place] [phone] 11 Apr, 2015 Left knee pain M25.562 [place] [id number] [place] [address] 43761- 5299 11 Apr, 2015 [place] [address] [place] [id number]- 4635 Mar, Unspecified episodic mood disorder 296.90 ; Anxiety F41.9 ; Other disorder of impulse control 312.39 and Combinations of drug dependence excluding opioid type drug, unspecified abuse 304.80 [place] [address] [place] [address] [id number] [place] [address] 52335- 5080 Mar, Hyperpigmentation L81.9 [place] [address] [id number] [place] [address] 82175- 7589 Mar, Arthritis M19.90 and Anxiety F41.9 [place] [address] 87093- 5446 Mar, Unspecified episodic mood disorder F39 ; Combined drug dependence excluding opioids, 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 ; Other disorder of impulse control F63.89 and Anxiety F41.9 [place] [id number] [place] [address] 42086- 8320 12 Mar, 2015 Well woman exam Z01.419 ; Other fatigue R53.83 ; Hot flashes N95.1 ; Depression, unspecified depression type F32.9 and Body mass index (BMI) of 23.0-23.9 in adult Z68.23 [place] [address] [id number] [place] [address] 90733- 9452 11 Mar, 2015 Unspecified episodic mood disorder 296.90 ; Other disorder of impulse control 312.39 and Anxiety F41.9 [place] [address] [id number] [place] [address] 68292- 1714 11 Mar, 2015 Well woman exam Z01.419 [...] of breast Z12.39 and Limited mobility Z74.[address] [address]44- 0426 Mar, [place] [address] 26985- 7224 Mar, [address] 0[address]68- 6206 Mar, [address] [address]241- 2182 Mar, Other specified complication of internal orthopedic prosthetic devices, implants and grafts, initial encounter T84.89XA ; Fibromyalgia M79.7 ; Hypertension I10 ; Anemia D64.9 ; Insomnia G47.00 ; Anxiety F41.9 ; Arthritis M19.90 and Migraine G43.909 [place] [address] 30112- 5906 Mar, [place] [address] 27371- 1228 Feb, [place] [address] 84470- 1051 Feb, Arthritis M19.90 and Anxiety F41.[address] 50563- 2234 Feb, [place] [address] 96982- 8301 Feb, [place] [address] 91244- 2653 Feb, [facility] [address] 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 and Fibromyalgia M79.7 [facility] [address] [place] [address]- 3395 Feb, [facility] [id number] [place] [address], [place] [address]- 5329 Jan, [facility] [id number] [place] [address]- 4232 Jan, [facility] [id number] [place] [address]- 9531 Jan, [facility] [id number] [place] [address]- 4110 24 Jan, 2015 [facility] [id number] [place] [address] 254 16 Jan, 2015 [facility] [address] [place] [address] [id number] [place] [address]- 2544 08 Jan, 2015 [facility] [id number] [place] [address]- 2352 Jan, [facility] [address] [place] [address] [id number] [place] [address]- 2541 Jan, [facility] [address] [id number] [place] [address]- 0035 Dec, [facility] [address] [facility] [id number], [place] [address]- 9392 Dec, Left knee pain M25.562 [facility] [id number] [place] [address] 11027- 4398 Dec, Left knee pain M25.562 [facility] [id number] [place] [address] 31068- 2443 Dec, Fibromyalgia M79.7 ; Hypertension I10 and Arthritis M19.90 [facility] [id number] [place] [address] 03002- 8700 Dec, [facility] [id number] [place] [address] 83865- 5070 Dec, [facility] [id number] [place] [address] 87046- 8390 Dec, [facility] [id number] [place] [address] 37760- 0410 Dec, [facility] [id number] [place] [address] 41023- 3784 Nov, [facility] [id number] [place] [address] 21589- 9799 Nov, [facility] [id number] [place] [address] 87130- 5542 Nov, [facility] [id number] [place] [address] 82757- 2878 Nov, Hypertension I10 [facility] [address], [place] [address]- 5809 Oct, [facility] [id number] [place] [address] 38966- 8086 Oct, [facility] [address], [place] [address]- 8933 Oct, [facility] [id number] [place] [address] 76564- 0235 Oct, [facility] [address] [id number] [place] [address]- 4073 Oct, [facility] [place] [facility] [address] [id number], [place] [address]- 3566 Sep, [facility] [place] [facility] [address] [id number], [place] [address]- 0448 Sep, [facility] [place] [facility] [address] [id number], [place] [address]- 2315 Sep, Hip pain associated with recalled total hip arthroplasty hardware 996.77 [facility] [place] [facility] [address] [id number] [place] [address]- 2349 Sep, [facility] [place] [facility] [address] [facility] [id number][place] 3843 Sep, [facility] [place] [facility] [address] [facility] [id number], [place] [address]- 2543 Sep, [facility] [place] [facility] [address] [id number], [place] [address]- 9613 Aug, [facility] [place] [facility] [address] [facility] [id number], [place] [address]- 2662 Jul, [facility] [place] [facility] [address] [facility] [id number], [place] [address]- 0376 June, [facility] [place] [facility] [address] [id number], [place] [address]- 2215 June, [facility] [place] [facility] [address] [id number], [place] [address]- 2918 June, [facility] [place] [facility] [address] [id number][place] 6932 June, [facility] [place] [facility] [address] [id number], [place] [address]- 9725 June, [facility] [place] [facility] [address] [id number][place] 8701 June, [facility] [place] [facility] [address] [id number] [place] [address]- 6679 30 May, 2014 [facility] [place] [facility] [address] [id number] [place] [address]- 5803 14 May, 2014 [facility] [place] [facility] [address] [id number] [place] [address]- 0925 May, [facility] [place] [facility] [address] [id number] [place] [address]- 6214 30 Apr, 2014 [facility] [place] [facility] [address] [id number] [place] [address]- 5206 30 Apr, 2014 [facility] [place] [facility] [address] [id number] [place] [address]- 9304 Apr, [facility] [place] [facility] [address] [id number] [place] [address]- 2225 Apr, [facility] [place] [facility] [address] [id number] [place] [address]- 4134 Apr, [facility] [place] [facility] [address] [id number] [place] [address]- 1125 Apr, [facility] [place] [facility] [address] [id number] [place] [address]- 1570 Apr, [facility] [place] [facility] [address] [id number], [place] [address]- 9954 Apr, [facility] [place] [facility] [address] [id number], [place] [address]- 8035 Apr, [facility] [place] [facility] [address] [id number] [place] [address]- 4821 Apr, [facility] [place] [facility] [address] [id number] [place] [address]- 9364 Apr, [facility] [place] [facility] [address] [id number] [place] [address]- 8120 Mar, [facility] [place] [facility] [address] [id number] [place] [address]- 4507 26 Mar, 2014 [facility] [place] [facility] [address] [id number] [place] [address]- 3776 Mar, 2014 [facility] [place] [facility] [address] [id number] [place] 7766 16 Mar, 2014 [facility] [place] [facility] [address] [id number] [place] [address]- 0956 Mar, 2014 [facility] [place] [facility] [address] [id number] [place] [address]- 6099 Mar, [facility] [place] [facility] [address] [id number] [place] [address]- 1583 Feb, [facility] [place] [facility] [address] [id number] [place] [address]- 8559 Feb, [facility] [place] [facility] [address] [id number] [place] [address]- 4930 Feb, [facility] [place] [facility] [address] [id number] [place] [address]- 2683 Feb, [facility] [place] [facility] [address] [id number] [place] [address]- 5287 Jan, [facility] [place] [facility] [address] [id number] [place] [address]- 9197 Jan, [facility] [place] [facility] [address] [id number] [place] [address]- 3500 Jan, [facility] [place] [facility] [address] [id number] [place] 6761 Jan, [facility] [place] [facility] [address] [id number] [place] [address]- 5626 Dec, [facility] [place] [facility] [address] [id number] [place] [address]- 6996 Dec, [facility] [place] [facility] [address] [id number] [place] [address]- 5460 Dec, [facility] [place] [facility] [address] [id number] [place] [address]- 7775 Dec, [facility] [place] [facility] [address] [id number] [place] [address]- 1124 Dec, [facility] [place] [facility] [address] [id number] [place] [address]- 3067 Dec, [facility] [place] [facility] [address] [id number] [place] [address]- 0676 Dec, [facility] [place] [facility] [address] [id number] [place] [address]- 5757 Dec, [facility] [place] [facility] [address] [id number] [place] [address]- 2181 Dec, [facility] [place] [facility] [address] [id number] [place] [address]- 8528 Dec, [facility] [place] [facility] [address] [id number] [place] [address]- 6061 Dec, [facility] [place] [facility] [address] [id number] [place] [address]- 0948 Nov, [facility] [place] [facility] [address] [id number] [place] [address]- 2061 Nov, [facility] [place] [facility] [address] [id number] [place] [address]- 3580 28 Nov, 2013 [facility] [place] [facility] [address] [id number], [place] [address]- 9699 Nov, [facility] [place] [facility] [address] [id number] [place] [address]- 0406 17 Nov, 2013 [facility] [place] [facility] [address] [id number], [place] [address]- 9660 15 Nov, 2013 [facility] [place] [facility] [address] [id number] [place] [address]- 1331 15 Nov, 2013 [facility] [place] [facility] [address] [id number] [place] [address]- 0774 15 Nov, 2013 [facility] [place] [facility] [address] [id number] [place] [address]- 3249 15 Nov, 2013 [facility] [place] [facility] [address] [id number] [place] [address]- 0605 14 Nov, 2013 [facility] [place] [facility] [address] [id number] [place] [address]- 6317 14 Nov, 2013 [facility] [place] [facility] [address] [id number] [place] [address]- 7978 14 Nov, 2013 [facility] [place] [facility] [address] [id number] [place] [address]- 4123 14 Nov, 2013 [facility] [place] [facility] [address] [id number] [place] [address]- 3313 13 Nov, 2013 [facility] [place] [facility] [address] [id number] [place] [address]- 2821 13 Nov, 2013 [facility] [place] [facility] [address] [id number] [place] [address]- 0590 11 Nov, 2013 [facility] [place] [facility] [address] [id number] [place] [address]- 1810 11 Nov, 2013 [facility] [place] [facility] [address] [id number] [place] [address]- 2745 07 Nov, 2013 [facility] [place] [facility] [address] [id number] [place] [address]- 5966 07 Nov, 2013 [facility] [place] [facility] [address] [id number], [place] [address]- 9404 07 Nov, 2013 [facility] [place] [facility] [address] [id number] [place] [address]- 3393 07 Nov, 2013 [facility] [place] [facility] [address] [id number] [place] [address]- 4887 30 Oct, 2013 [facility] [place] [facility] [address] [id number] [place] [address]- 9314 30 Sep, 2013 [facility] [place] [facility] [address] [id number] [place] [address]- 3343 26 Oct, 2013 [facility] [place] [facility] [address] [id number] [place] [address]- 8386 26 Oct, 2013 [facility] [place] [facility] [address] [id number] [place] [address]- 9856 Oct, 2013 [facility] [place] [facility] [address] [id number] [place] [address]- 9856 Oct, 2013 [facility] [place] [facility] [address] [id number] [place] [address] 2540 18 Oct, 2013 [facility] [place] [facility] [address] [id number] [place] [address]- 3564 18 Oct, 2013 [facility] [place] [facility] [address] [id number] [place] [address]- 5949 Oct, 2013 [facility] [place] [facility] [address] [id number] [place] [address]- 5395 Oct, 2013 [facility] [place] [facility] [address] [id number] [place] [address]- 3578 Oct, 2013 [facility] [place] [facility] [address] [id number] [place] [address]- 8986 Oct, 2013 [facility] [place] [facility] [address] [id number] [place] [address]- 2727 Oct, 2013 [facility] [place] [facility] [address] [id number] [place] [address]- 2548 Oct, 2013 [facility] [place] [facility] [address] [id number] [place] [address]- 9661 Sep, [facility] [place] [facility] [address] [id number] [place] [address]- 1960 Sep, [facility] [place] [facility] [address] [id number] [place] [address]- 6714 Sep, [facility] [place] [facility] [address] [id number] [place] [address]- 3170 Sep, [facility] [place] [facility] [address] [id number] [place] [address]- 1767 Sep, [facility] [place] [facility] [address] [id number] [place] [address]- 7036 Sep, [facility] [place] [facility] [address] [id number] [place] [address]- 8066 Sep, [facility] [place] [facility] [address] [id number] [place] [address]- 6821 Sep, [facility] [place] [facility] [address] [id number] [place] [address]- 6793 Sep, [facility] [place] [facility] [address] [id number] [place] [address]- 3953 Sep, [facility] [place] [facility] [address] [id number] [place] [address]- 0740 Sep, [facility] [place] [facility] [address] [id number] [place] [address]- 1321 Sep, [facility] [place] [facility] [address] [id number] [place] [address]- 2156 Sep, [facility] [place] [facility] [address] [id number] [place] [address]- 8097 Sep, [facility] [place] [facility] [address] [id number] [place] [address]- 3789 Sep, [facility] [place] [facility] [address] [id number] [place] [address]- 6602 Sep, [facility] [place] [facility] [address] [id number] [place] [address]- 9351 Sep, [facility] [place] [facility] [address] [id number] [place] [address]- 7504 Sep, [facility] [place] [facility] [address] [id number] [place] [address]- 6099 Aug, [facility] [place] [facility] [address] [id number] [place] [address]- 4350 Aug, [facility] [address] [id number] [place] [address]- 5175 Aug, [facility] [place] [facility] [address] [id number] [place] [address]- 4879 Aug, [facility] [address] [id number] [place] [address]- 6088 Aug, [facility] [place] [facility] [address] [id number] [place] [address]- 6812 Aug, [facility] [address] [id number] [place] [address]- 3500 Jul, [facility] [address] [id number] [place] [address]- 0915 Jul, [facility] [address] [id number] [place] [address]- 9178 Jul, [facility] [address] [id number] [place] [address]- 7340 Jul, [facility] [place] [facility] [address] [id number] [place] [address]- 1133 June, [facility] [address] [id number] [place] [address]- 5587 June, [facility] [place] [facility] [address] [id number] [place] [address]- 6624 June, [facility] [place] [facility] [address] [id number] [place] [address]- 1028 June, [facility] [place] [facility] [address] [id number] [place] [address]- 4707 June, [facility] [place] [facility] [address] [id number] [place] [address]- 4737 June, [facility] [place] [facility] [address] [id number] [place] [address]- 4787 June, [facility] [place] [facility] [address] [id number] [place] [address]- 9562 May, [facility] [place] [facility] [address] [id number] [place] [address]- 3190 May, [facility] [place] [facility] [address] [id number] [place] [address]- 3624 May, [facility] [place] [facility] [address] [id number] [place] [address]- 4947 May, [facility] [place] [facility] [address] [id number] [place] [address]- 2660 May, [facility] [place] [facility] [address] [id number] [place] [address]- 7033 May, [facility] [place] [facility] [address] [id number] [place] [address]- 7291 31 Apr, 2013 [facility] [place] [facility] [address] [id number] [place] [address]- 9933 31 Apr, 2013 [facility] [place] [facility] [address] [id number] [place] [address]- 2164 28 Apr, 2013 [facility] [place] [facility] [address] [id number] [place] [address]- 9994 28 Apr, 2013 [facility] [place] [facility] [address] [id number] [place] [address]- 5370 14 Apr, 2013 [facility] [place] [facility] [address] [id number] [place] [address]- 5249 14 Apr, 2013 [facility] [place] [facility] [address] [id number] [place] [address]- 0569 12 Apr, 2013 [facility] [place] [facility] [address] [id number] [id number] 3508 12 Apr, 2013 [facility] [place] [facility] [address] [id number] [place] [address]- 3488 10 Apr, 2013 [facility] [place] [facility] [address] [id number], [place] [address]- 6965 Apr, [facility] [place] [facility] [address] [id number] [place] [address]- 3799 Apr, [facility] [place] [facility] [address] [id number] [place] [address]- 7859 Apr, [facility] [place] [facility] [address] [id number] [place] [address]- 5779 Apr, [facility] [place] [facility] [address] [id number] [place] [address] Apr, [facility] [place] [facility] [address] [id number] [place] [address] Mar, [facility] [place] [facility] [address] [id number] [place] [address] Mar, [facility] [place] [facility] [address] [id number] [place] [address] Mar, [facility] [place] [facility] [address] [id number] [place] [address] Feb, [facility] [place] [facility] [address] [id number] [place] [address] Feb, [facility] [place] [facility] [address] [id number] [place] [address] Feb, [facility] [place] [facility] [address] [id number] [place] [address] Feb, [facility] [place] [facility] [address] [id number] [place] [address] Feb, [facility] [place] [facility] [address] [id number] [place] [address] Feb, [facility] [place] [facility] [address] [id number] [place] [address] Feb, [facility] [place] [facility] [address] [id number] [place] [address] Feb, [facility] [place] [facility] [address] [id number] [place] [address] Feb, [facility] [address] [id number] [place] [address] Feb, [facility] [place] [facility] [address] [id number] [place] [address] Jan, [facility] [place] [facility] [address] [id number] [place] [address] Jan, [facility] [place] [facility] [address] [id number] [place] [address] Jan, [facility] [place] [facility] [address] [id number] [place] [address] Jan, [facility] [address] [id number] [place] [address] Jan, [facility] [address] [id number] [place] [address] Jan, [facility] [address] [id number] [place] [address] Jan, [facility] [address] [id number] [place] [address] Jan, [facility] [address] [id number] [place] [address] Jan, [facility] [place] [facility] [address] [id number] [place] [address] Jan, [facility] [place] [facility] [address] [id number] [place] [address] 17 Jan, 2013 [facility] [place] [facility] [address] [id number] [place] [address] 17 Jan, 2013 [facility] [place] [facility] [address] [id number] [place] [address] 16 Jan, 2013 [facility] [place] [facility] [address] [id number] [place] [address]- 57[address] Jan, [facility] [address] [id number] [place] [address]- 95[address] Jan, [facility] [place] [facility] [address] [id number] [address] [address] Jan, [facility] [place] [facility] [address] [facility] [id number] [place] [address] Jan, [facility] [place] [facility] [address] [id number], [place] [address] Jan, [facility] [place] [facility] [address] [id number] [place] [address] Jan, [facility] [place] [facility] [address] [id number] [place] [address] Jan, [facility] [place] [facility] [address] [facility] [id number], [place] [address] Jan, [facility] [place] [facility] [address] [id number], [place] [address] Dec, [facility] [place] [facility] [address] [id number], [place] [address] Dec, [facility] [place] [facility] [address] [id number], [place] [address] Dec, [facility] [place] [facility] [address] [id number], [place] [address] Dec, [facility] [place] [facility] [address] [id number], [place] [address] 2005 Dec, [facility] [place] [facility] [address] [id number], [place] [address] Dec, [facility] [place] [facility] [address] [id number], [place] [address] Dec, [facility] [place] [facility] [address] [id number], [place] [address] Dec, [facility] [place] [facility] [address] [id number] [place] [address] Dec, [facility] [place] [facility] [address] [id number] [place] [address] Dec, [facility] [place] [facility] [address] [id number] [place] [address] Nov, [facility] [place] [facility] [address] [id number] [place] [address] Nov, [facility] [place] [facility] [address] [id number] [place] [address] Nov, [facility] [place] [facility] [address] [id number] [place] [address] Nov, [facility] [place] [facility] [address] [id number] [place] [address] Nov, [facility] [place] [facility] [address] [id number] [place] [address] 40[address] Nov, [facility] [place] [facility] [address] [id number] [place] [address]- [address] Nov, [facility] [place] [facility] [address] [id number] [place] [address]- 2020 Nov, [facility] [place] [facility] [address] [id number] [place] [address] Nov, [facility] [place] [facility] [address] [id number] [place] [address]68 Nov, [facility] [place] [facility] [address] [id number] [place] [address]40 Oct, [facility] [place] [facility] [address] [id number] [place] [address] 8075 Oct, [facility] [place] [facility] [address] [id number] [place] [address]- [address] Oct, [facility] [place] [facility] [address] [id number] [place] [address] Oct, [facility] [place] [facility] [address] [id number] [place] [address] Oct, [facility] [address] [id number] [place] [address] Sep, [facility] [address] [id number] [place] [address] Sep, [facility] [address] [id number] [place] [address] 6228 Aug, [facility] [address] [id number] [place] [address] 136[address] Aug, [facility] [address] [id number] [place] [address] 0844 Aug, [facility] [address] [id number] [place] [address] 6698 Aug, [facility] [address] [id number] [place] [address] 7665 Aug, [facility] [address] [id number] [place] [address] 4361 Aug, [facility] [address] [id number] [place] [address] 1649 Aug, [facility] [address] [id number] [place] [address]43 Jul, [facility] [address] [id number] [place] [address] 2540 Jul, [facility] [address] [id number] [place] [address] 3716 June, [facility] [place] [facility] [address] [id number] [place] [address] 4316 June, [facility] [address] [id number] [place] [address] 2549 June, [facility] [address] [id number] [place] [address] 7516 June, [facility] [address] [id number] [place] [address] 4524 June, [facility] [address] [id number] [place] [address]- 6627 June, [facility] [address] [id number] [place] [address] 9844 June, [facility] [address] [id number] [place] [address] 6170 June, [facility] [address] [id number] [place] [address]- 8076 June, [facility] [address] [id number] [place] [address] 8942 June, [facility] [address] [id number] [place] [address] June, [facility] [address] [id number] [place] [address] 8946 May, [facility] [address] [id number] [place] [address]- 8723 May, [facility] [address] [id number] [place] [address]- 1779 May, [facility] [address] [id number] [place] [address]- 2664 May, [facility] [place] [facility] [address] [id number] [place] [address]- 4802 Apr, [facility] [place] [facility] [address] [id number] [place] [address]- 0423 Apr, [facility] [place] [facility] [address] [id number] [place] [address]- 3270 Apr, [facility] [place] [facility] [address] [id number] [place] [address]- 7970 Mar, [facility] [place] [facility] [address] [id number] [place] [address]- 3786 11 Mar, 2012 [facility] [address] [id number] [place] [address] 8616 Feb, [facility] [place] [facility] [address] [id number] [place] [address] 8016 Feb, [facility] [address] [id number] [place] [address] 5326 Feb, [facility] [place] [facility] [address] [id number] [place] [address] 6336 Feb, [facility] [address] [id number] [place] [address] 1516 Feb, [facility] [address] [id number] [place] [address]- 4576 Feb, [facility] [address] [id number] [place] [address] 4816 Feb, [facility] [address] [id number] [place] [address]- 7512 Jan, [facility] [address] [id number] [place] [address]- 8095 31 Jan, 2012 [facility] [address] [id number] [place] [address]- 9035 Jan, [facility] [address] [id number] [place] [address]- 3516 17 Jan, 2012 [facility] [address] [id number] [place] [address]- 2546 17 Jan, 2012 [facility] [place] [facility] [address] [id number] [place] [address] 0806 Jan, [facility] [place] [facility] [address] [id number] [place] [address]- 0966 Jan, [facility] [place] [facility] [address] [id number] [place] [address]- 7418 Jan, [facility] [place] [facility] [address] [id number] [place] [address] 3118 Jan, [facility] [place] [facility] [address] [id number] [place] [address]- 6795 Jan, [facility] [place] [facility] [address] [id number] [place] [address] Jan, [facility] [place] [facility] [address] [id number] [place] [address]- 4493 Dec, [facility] [place] [facility] [address] [id number] [place] [address]- 5929 Dec, [facility] [place] [facility] [address] [id number] [place] [address]- 5127 Dec, [facility] [place] [facility] [address] [id number] [place] [address] Dec, [facility] [place] [facility] [address] [id number] [place] [address]- 8184 Nov, [facility] [place] [facility] [address] [id number] [place] [address]- 1237 Nov, [facility] [place] [facility] [address] [id number], [place] [address] 4844 Nov, [facility] [place] [facility] [address] [id number], [place] [address] 8[address] 27 Oct, 2011 [facility] [place] [facility] [address] [id number], [place] [address]- [address] 24 Sep2011 [facility] [place] [facility] [address] [id number] [place] [address]- 7293 21 Sep2011 [facility] [place] [facility] [address] [id number] [place] [address]- 0992 10 Oct, 2011 [facility] [place] [facility] [address] [id number] [place] [address]- 9418 07 Oct, 2011 [facility] [place] [facility] [address] [id number] [place] [address]- 9272 04 Oct, 2011 [facility] [place] [facility] [address] [id number] [place] [address]- 8386 Oct, [facility] [place] [facility] [address] [id number] [place] [address]- 2286 Sep, [facility] [place] [facility] [address] [id number] [place] [address]- 1436 Sep, [facility] [place] [facility] [address] [id number] [place] [address]- 6810 Sep, [facility] [place] [facility] [address] [id number] [place] [address]- 5243 Sep, [facility] [place] [facility] [address] [id number] [place] [address]- 8698 Sep, [facility] [place] [facility] [address] [id number] [place] [address]- 9246 Aug, [facility] [place] [facility] [address] [id number] [place] [address]- 6909 Aug, [facility] [place] [facility] [address] [id number] [place] [address]- 8900 Aug, [facility] [place] [facility] [address] [id number] [place] [address]- 5558 Aug, [facility] [place] [facility] [address] [id number] [place] [address]- 4704 Aug, [facility] [place] [facility] [address] [id number] [place] [address]- 1475 Aug, [facility] [place] [facility] [address] [id number] [place] [address]- 1495 Aug, [facility] [place] [facility] [address] [id number] [place] [address]- 6850 Jul, [facility] [place] [facility] [address] [id number] [place] [address]- 8918 Jul, [facility] [place] [facility] [address] [id number] [place] [address]- 4409 Jul, [facility] [place] [facility] [address] [id number] [place] [address]- 8880 Jul, [facility] [place] [facility] [address] [id number] [place] [address]- 3164 Jul, [facility] [place] [facility] [address] [id number] [place] [address]- 6510 Jul, [facility] [place] [facility] [address] [id number] [place] [address]- 2600 07 Jul, 2011 [facility] [place] [facility] [address] [id number] [place] [address]- 2847 Jul, [facility] [place] [facility] [address] [id number] [place] [address]- 0512 Jul, [facility] [place] [facility] [address] [id number] [place] [address]- 3004 June, [facility] [place] [facility] [address] [id number] [place] [address]- 1964 June, [facility] [place] [facility] [address] [id number] [place] [address]- 7161 June, [facility] [place] [facility] [address] [id number] [place] [address]- 7998 June, [facility] [place] [facility] [address] [id number] [place] [address]- 3135 June, [facility] [place] [facility] [address] [id number] [place] [address]- 1748 June, [facility] [place] [facility] [address] [id number] [place] [address]- 7341 June, [facility] [place] [facility] [address] [id number] [place] [address]- 1917 June, [facility] [place] [facility] [address] [id number] [place] [address]- 1066 May, [facility] [place] [facility] [address] [id number] [place] [address]- 9865 May, [facility] [place] [facility] [address] [id number] [place] [address]- 2936 May, [facility] [place] [facility] [address] [id number] [place] [address]- 6985 May, [facility] [place] [facility] [address] [id number] [place] [address]- 1200 May, [facility] [place] [facility] [address] [id number] [place] [address]- 1250 May, [facility] [place] [facility] [address] [id number] [place] [address] May, [facility] [place] [facility] [address] [id number] [place] [address]- 3897 Apr, [facility] [place] [facility] [address] [id number] [place] [address]- 2868 Apr, [facility] [place] [facility] [address] [id number] [place] [address]- 1265 Apr, [facility] [place] [facility] [address] [id number] [place] [address]- 4105 Apr, [facility] [place] [facility] [address] [id number] [place] [address]- 2694 Apr, [facility] [place] [facility] [address] [id number] [place] [address]- 2019 Apr, [facility] [place] [facility] [address] [id number] [place] [address]- 4474 Apr, [facility] [place] [facility] [address] [id number] [place] [address]- 9969 Mar, [facility] [place] [facility] [address] [id number] [place] [address]- 6813 Mar, [facility] [place] [facility] [address] [id number] [place] [address]- 3197 14 Mar, 2011 [facility] [address] [id number] [place] [address]- 6416 13 Mar, 2011 [facility] [place] [facility] [address] [id number] [place] [address]- 5756 09 Mar, 2011 [facility] [address] [id number] [place] [address]- 8996 08 Mar, 2011 [facility] [address] [id number] [place] [address] 254 Mar, [facility] [address] [id number] [place] [address]- 7126 Feb, [facility] [address] [id number] [place] [address]- 6256 Feb, [facility] [address] [id number] [place] [address]- 9729 Feb, [facility] [address] [id number] [place] [address]- 9374 Feb, [facility] [address] [id number] [place] [address]- 6872 Feb, [facility] [address] [id number] [place] [address]- 9402 Feb, [facility] [address] [id number] [place] [address]- 6796 Feb, [facility] [place] [facility] [address] [id number] [place] [address]- 0247 Feb, [facility] [place] [facility] [address] [id number] [place] [address]- 5328 Feb, [facility] [place] [facility] [address] [id number] [place] [address]- 9327 Feb, [facility] [place] [facility] [address] [id number] [place] [address]- 6764 27 Jan, 2011 [facility] [place] [facility] [address] [id number] [place] [address]- 1097 Jan, [facility] [place] [facility] [address] [id number] [place] [address]- 8486 Jan, [facility] [place] [facility] [address] [id number] [place] [address]- 8746 Jan, [facility] [place] [facility] [address] [id number] [place] [address]- 9433 Jan, [facility] [place] [facility] [address] [id number] [place] [address]- 8113 Jan, [facility] [place] [facility] [address] [id number] [place] [address]- 0126 Jan, [facility] [place] [facility] [address] [id number] [place] [address]- 0138 Jan, [facility] [place] [facility] [address] [id number] [place] [address]- 6763 Jan, [facility] [place] [facility] [address] [id number] [place] [address]- 6936 Jan, [facility] [place] [facility] [address] [id number] [place] [address]- 2141 Jan, [facility] [place] [facility] [address] [id number] [place] [address]- 5775 17 Dec, 2010 [facility] [place] [facility] [address] [id number], [place] [address]- 7319 17 Dec, 2010 [facility] [place] [facility] [address] [id number] [place] [address]- 0394 17 Dec, 2010 [facility] [place] [facility] [address] [id number] [place] [address]- 0106 16 Dec, 2010 [facility] [place] [facility] [address] [id number] [place] [address]- 7895 14 Dec, 2010 [facility] [place] [facility] [address] [id number] [place] [address]- 4857 09 Dec, 2010 [facility] [address] [id number] [place] [address]- 9830 Dec, [facility] [place] [facility] [address] [id number] [place] [address]246 Dec, [facility] [address] [id number] [place] [address]- 4817 Dec, [facility] [place] [facility] [address] [id number] [place] [address]- 6451 Nov, [facility] [address] [id number] [place] [address]- 1554 Nov, [facility] [place] [facility] [address] [id number] [place] [address]- 0785 Nov, [facility] [address] [id number] [place] [address]- 4452 Nov, [facility] [address] [id number] [place] [address]- 6652 24 Nov, 2010 [facility] [place] [facility] [address] [id number] [place] [address]- 7457 Nov, [facility] [address] [id number] [place] [address]- 6518 Aug, [facility] [place] [facility] [address] [id number] [place] [address]- 9465 14 Feb, 2010 [facility] [place] [facility] [address] [id number] [place] [address]- 6706 14 Jan, 2010 [facility] [place] [facility] [address] [id number] [place] [address]- 3656 Jan, [facility] [place] [facility] [address] [id number] [place] [address]- 5455 Jan, [facility] [place] [facility] [address] [id number] [place] [address]- 7903 Jan, [facility] [address] [id number] [address]181 Jan, [facility] [id number], [place] [address]- 3983 Dec, [facility] [id number], [place] [address]- 3689 Dec, [facility] [id number] [address]- 3516 Dec, [facility] [id number], [place] [address]- 1842 Dec, [facility] [id number], [place] [address]- 4794 Nov, [facility] [id number], [place] [address]- 2586 Nov, [facility] [id number], [place] [address]- 9454 Nov, IMMUNIZATIONS No Known Immunizations SOCIAL HISTORY Never Assessed REASON FOR VISIT requests return call PLAN OF CARE VITAL SIGNS MEDICATIONS Unknown [...]
--- OUTSIDE RECORDS SUMMARY | 2018-01-13 20:58 | XMS REPORT ---
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 Active 606726574 Problem Hypertension I10 Active 25512415 Problem Arthritis M19.90 Active 5034488 Problem 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 Active 64897146 Problem Anxiety F41.9 Active 62641811 Problem Unspecified episodic mood disorder F39 Active 32056335 Problem Left hip pain M25.552 Active 21709695 ALLERGIES No Information ENCOUNTERS Encounter Location Date Diagnosis [facility] [address] [id number] [id number] Aug, [facility] [address] [facility] [id number] [id number] Aug, Arthritis M19.90 [facility] [address] [facility] [id number], [place] [address] Aug, [facility] [id number] [place] [address] 95801- 6558 Aug, Obesity (BMI 30.0-34.9) E66.9 ; Unspecified episodic mood disorder F39 and Hypertension I10 [facility] [id number] [place] [address] 26920- 7649 Aug, Unspecified episodic mood disorder F39 [facility] [id number] [place] [address] 84801- 4601 Aug, [facility] [id number] [place] [address] 88601- 1639 Jul, Unspecified episodic mood disorder F39 [facility] [id number] [place] [address] 66893- 4090 Jul, [facility] [id number] [place] [address] 17103- 6663 Jul, Arthritis M19.90 [facility] [id number] [place] [address] 72820- 2863 Jul, Left hip pain M25.552 ; Hypertension I10 ; Other obesity due to excess calories E66.09 and Body mass index (BMI) of 34.0-34.9 in adult Z68.34 [facility] [id number] [place] [address] 97596- 5082 Jul, Unspecified episodic mood disorder F39 [facility] [id number] [place] [address] 95377- 2940 June, Gastroesophageal reflux disease, esophagitis presence not specified K21.9 [facility] [id number] [place] [address] 94652- 8099 June, [facility] [id number] [place] [address] 39999- 8393 June, [facility] [id number] [place] [address] 90203- 8639 June, Arthritis M19.90 [facility] [address] [address] 1685 June, [facility] [id number] [place] [address] 18293- 1214 June, [facility] [id number] [place] [address] 10244- 5157 June, Unspecified episodic mood disorder F39 [facility] [id number] [place] [address] 01930- 2094 May, Unspecified episodic mood disorder F39 [facility] [id number] [place] [address] 35044- 8825 May, [facility] [id number] [place] [address] 39106- 0462 May, Arthritis M19.90 [facility] [id number] [place] [address] 42429 -6091 May, Dysuria R30.0 ; Abscess L02.91 and Acute cystitis without hematuria N30.00 [facility] [id number] [place] [address] 28379- 6231 May, Other disorder of impulse control F63.89 ; Unspecified episodic mood disorder F39 ; Combined drug dependence excluding opioids, 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 ; Anxiety F41.9 and Other psychoactive substance dependence, 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 [facility] [id number] [place] [address] 05460- 1089 May, [facility] [id number] [place] [address] 13081- 9578 May, Other disorder of impulse control F63.89 ; Unspecified episodic mood disorder F39 ; Combined drug dependence excluding opioids, 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 ; Other psychoactive substance dependence, 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 and Anxiety F41.9 [facility] [id number] [place] [address] 62435- 3429 May, Other chronic pain G89.29 ; Left hip pain M25.552 ; Hypertension I10 ; 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, 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 and Unspecified episodic mood disorder F39 [facility] [id number] [place] [address] 69533- 6159 Apr, [facility] [id number] [place] [address] 40879 -8163 Apr, Neck pain M54.2 ; Left hip pain M25.552 and Fall, initial encounter W19.XXXA [facility] [id number] [place] [address] 17439- 0494 Apr, Unspecified episodic mood disorder F39 ; Combined drug dependence excluding opioids, 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 ; Anxiety F41.9 ; Other psychoactive substance dependence, 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 and Other disorder of impulse control F63.89 [facility] [id number] [place] [address] 16890- 4598 Apr, [facility] [id number] [place] [address] 89908- 1389 Apr, Arthritis M19.90 and Unspecified episodic mood disorder F39 [facility] [id number] [place] [address] 77002- 2662 Apr, Unspecified episodic mood disorder F39 [facility] [id number] [place] [address] 47004- 8482 Apr, [facility] [id number] [place] [address] 91873- 2277 Apr, [facility] [id number] [place] [address] 84078- 8272 Apr, Unspecified episodic mood disorder F39 ; Combined drug dependence excluding opioids, 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 ; Anxiety F41.9 ; Other psychoactive substance dependence, 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 and Other disorder of impulse control F63.89 [facility] [id number] [place] [address] 54285- 3687 Mar, Unspecified episodic mood disorder F39 [facility] [address] [address] 2[address] Mar, Gastroesophageal reflux disease, esophagitis presence not specified K21.9 [facility] [address] [address] Mar, Arthritis M19.90 and Unspecified episodic mood disorder F39 [facility] [id number] [place] [address] 35971- 9106 Feb, [facility] [id number] [place] [address] 70079- 6198 Feb, [facility] [id number] [place] [address] 88930- 3302 Feb, [facility] [id number] [place] [address] 94868- 3714 Feb, Arthritis M19.90 [facility] [id number] [place] [address] 40960- 0227 Feb, Non-pressure chronic ulcer of right calf, 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 ; Unspecified episodic mood disorder F39 and Left hip pain M25.552 [facility] [address] [address] 2980 Feb, [facility] [id number] [place] [address] 72850- 6650 Feb, [facility] [id number] [place] [address] 48255- 2069 Jan, Arthritis M19.90 [facility] [id number] [place] [address] 45620- 2787 Jan, Left hip pain M25.552 and Non-pressure chronic ulcer of right calf, 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 [facility] [address] [address] 7779 Jan, Chronic hepatitis C without hepatic coma B18.2 [facility] [id number] [place] [address] 80709- 9210 Jan, Encounter for immunization Z23 ; Venous insufficiency ( chronic) (peripheral) I87.2 ; Non-pressure chronic ulcer of unspecified calf limited to breakdown of skin L97.201 and Gastroesophageal reflux disease, esophagitis presence not specified K21.9 [facility] [id number] [place] [address] 03950- 9174 Jan, [facility] [id number] [place] [address] 79463- 5698 Jan, Chronic hepatitis C without hepatic coma B18.2 and Encounter for immunization Z23 [facility] [id number] [place] [address] 46019- 5871 Jan, Arthritis M19.90 [facility] [id number] [place] [address] 60914- 9510 Jan, [facility] [id number] [place] [address] 78931- 4641 Dec, [facility] [id number] [place] [address] 02867- 5852 Dec, Unspecified episodic mood disorder F39 [facility] [id number] [place] [address] 95891- 0003 Dec, Arthritis M19.90 [facility] [id number] [place] [address] 87284- 4344 Dec, Arthritis M19.90 [facility] [id number] [place] [address] 66416- 9706 Nov, [facility] [id number] [place] [address] 35773- 5868 Nov, [facility] [id number] [place] [address] 22874- 6140 Nov, Other psychoactive substance dependence, 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 ; 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, 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 and Chronic hepatitis C without hepatic coma B18.2 [facility] [id number] [place] [address] 42938- 7493 Nov, Arthritis M19.90 [facility] [id number] [place] [address] 75756 -3393 Oct, Partial thickness burn of abdomen, initial encounter T21.22XA [facility] [id number] [place] [address] 74526- 9293 Oct, [facility] [id number] [place] [address] 14184- 9452 Sep, Arthritis M19.90 [facility] [id number] [place] [address] 74632- 0857 Sep, [facility] [id number] [place] [address] 64030- 3908 Sep, [facility] [id number] [place] [address] 87698- 8495 Sep, Unspecified episodic mood disorder F39 ; Chronic hepatitis C without hepatic coma B18.2 and Left hip pain M25.552 [facility] [id number] [place] [address] 42398- 3714 Sep, Arthritis M19.90 and Left hip pain M25.552 [facility] [id number] [place] [address] 63600- 1193 Aug, [facility] [id number] [place] [address] 08739- 4043 Aug, [facility] [id number] [place] [address] 09191- 0060 Aug, Chronic hepatitis C without hepatic coma B18.2 [facility] [id number] [place] [address] 74572- 0248 Aug, [facility] [id number] [place] [address] 82086- 5867 Aug, Chronic hepatitis C without hepatic coma B18.2 [facility] [id number] [place] [address] 67717- 9360 Aug, 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, 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 [facility] [id number] [place] [address] 16358- 9206 Aug, [facility] [id number] [place] [address] 92701- 4211 Aug, Chronic hepatitis C without hepatic coma B18.2 and Hypertension I10 [facility] [id number] [place] [address] 71980- 2188 Jul, [facility] [id number] [place] [address] 92148- 7156 June, [facility] [id number] [place] [address] 92599- 8250 Apr, Fibromyalgia M79.7 ; Left hip pain M25.552 and Decubitus ulcer of sacral region, stage 1 L89.151 [facility] [id number] [place] [address] 21865- 8337 Apr, [facility] [id number] [place] [address] 73183- 8741 Apr, [facility] [id number] [place] [address] 91354- 4756 Feb, [facility] [id number] [place] [address] 54515- 9166 Dec, Anxiety F41.9 ; Combined drug dependence excluding opioids, 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 and Unspecified episodic mood disorder F39 [facility] [id number] [place] [address] 23092- 4330 Dec, [facility] [id number] [place] [address] 55637- 6209 Nov, [facility] [id number] [place] [address] 36791- 8077 Nov, [facility] [id number] [place] [address] 05083- 7941 Nov, Other disorder of impulse control F63.89 and Anxiety F41.9 [facility] [id number] [place] [address] 90553- 8771 Oct, [facility] [id number] [place] [address] 25292 -1885 14 Oct, 2015 Open wound of left thigh, initial encounter S71.102A [facility] [id number] [place] [address] 40921- 7319 Oct, [facility] [id number] [place] [address] 16531- 7976 Sep, Unspecified episodic mood disorder F39 ; Other disorder of impulse control 312.39 ; Combined drug dependence excluding opioids, 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 and Anxiety F41.9 [facility] [id number] [place] [address] 51455- 4478 Sep, Other disorder of impulse control 312.39 ; Combined drug dependence excluding opioids, 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 ; Anxiety F41.9 and Unspecified episodic mood disorder F39 [facility] [id number] [place] [address] 28374- 9526 Sep, Other chronic pain G89.29 [facility] [id number] [place] [address] 78553- 5609 Sep, [facility] [id number] [place] [address] 46770- 5194 Sep, [facility] [id number] [place] [address] 01227- 8174 Aug, [facility] [id number] [place] [address] 14038- 9050 Aug, [facility] [id number] [place] [address] 94548- 6103 Aug, [facility] [id number] [place] [address] 09723- 8432 Jul, [facility] [id number] [place] [address] 36465- 8830 Jul, [facility] [id number] [place] [address] 74297- 9843 Jul, [facility] [id number] [place] [address] 67119- 7791 Jul, Arthritis M19.90 ; Chronic hepatitis C without hepatic coma B18.2 and Left hip pain M25.552 [facility] [id number] [place] [address] 04193- 0352 Jul, Left knee pain M25.562 [facility] [id number] [place] [address] 77056- 5518 Jul, Combined drug dependence excluding opioids, 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 ; Anxiety F41.9 ; Other disorder of impulse control 312.39 and Unspecified episodic mood disorder F39 [facility] [id number] [place] [address] 42955- 1586 Jul, Left knee pain M25.562 [facility] [id number] [place] [address] 88683- 7227 Jul, Left knee pain M25.562 and Left hip pain M25.552 [facility] [id number] [place] [address] 89751- 9407 Jul, [facility] [id number] [place] [address] 61969- 3290 June, [facility] [id number] [place] [address] 75544- 3669 June, Combinations of drug dependence excluding opioid type drug, unspecified abuse 304.80 ; Other disorder of impulse control 312.39 ; Unspecified episodic mood disorder F39 and Anxiety F41.9 [facility] [address] [address]- 7857 June, Other fatigue R53.83 ; Headache R51 and Left knee pain M25.562 [facility] [id number] [place] [address] 43768- 7631 June, Unspecified episodic mood disorder F39 ; Combinations of drug dependence excluding opioid type drug, unspecified abuse 304.80 ; Other disorder of impulse control 312.39 and Anxiety F41.9 [facility] [id number] [place] [address] 50900- 5263 June, Anxiety F41.9 [facility] [id number] [place] [address] 81550- 5739 June, Pain in left knee M25.562 [place] [id number] [place] [address] 12936- 4714 June, Anxiety F41.9 and Combinations of drug dependence excluding opioid type drug, unspecified abuse 304.80 [place] [id number] [place] [address] 62432- 4358 June, Unspecified episodic mood disorder 296.90 ; Combinations of drug dependence excluding opioid type drug, unspecified abuse 304.80 and Other disorder of impulse control 312.39 [place] [facility] [address] [address]- 4829 June, Anxiety F41.9 and Unspecified episodic mood disorder 296.90 [facility] [id number] [place] [address] 62285- 6625 May, Arthritis M19.90 [facility] [id number] [place] [address] 89727- 5331 May, Arthritis M19.90 [facility] [id number] [place] [address] 85358- 7565 May, Anxiety F41.9 ; Combinations of drug dependence excluding opioid type drug, unspecified abuse 304.80 and Other disorder of impulse control 312.39 [place] [facility] [address] [address]- 1390 18 May, 2015 Left knee pain M25.562 [facility] [address] [place] [address]- 8297 14 May, 2015 Arthritis M19.90 [facility] [address] [address]- 0819 May, [facility] [id number] [place] [address] 15356- 6226 May, Anxiety F41.9 ; Unspecified episodic mood disorder 296.90 ; Combinations of drug dependence excluding opioid type drug, unspecified abuse 304.80 and Other disorder of impulse control 312.39 [facility] [address] [address]- 8893 May, Left knee pain M25.562 [facility] [id number] [place] [address] 05721- 7498 11 May, 2015 Left knee pain M25.562 ; Combinations of drug dependence excluding opioid type drug, unspecified abuse 304.80 ; Other disorder of impulse control 312.39 ; Fibromyalgia M79.7 ; Hypertension I10 ; Unspecified episodic mood disorder 296.90 and Left hip pain M25.552 [facility] [address] [place] [address]- 3705 May, Unspecified episodic mood disorder 296.90 ; Other disorder of impulse control 312.39 ; Combinations of drug dependence excluding opioid type drug, unspecified abuse 304.80 and Anxiety F41.9 [facility] [id number] [place] [address] 99529- 2336 May, Left knee pain M25.562 ; Combinations of drug dependence excluding opioid type drug, unspecified abuse 304.80 ; Other disorder of impulse control 312.39 ; Fibromyalgia M79.7 ; Hypertension I10 ; Unspecified episodic mood disorder 296.90 and Left hip pain M25.552 [facility] [id number] [place] [address] 29391- 1598 May, Anxiety F41.9 ; Unspecified episodic mood disorder 296.90 ; Other disorder of impulse control 312.39 and Combinations of drug dependence excluding opioid type drug, unspecified abuse 304.80 [facility] [id number] [place] [address] 93708- 4339 30 Apr, 2015 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 and 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, implants and grafts, initial encounter T84.82XA [facility] [id number] [place] [address] 91056- 6710 Apr, Anxiety F41.9 ; Unspecified episodic mood disorder 296.90 ; Combinations of drug dependence excluding opioid type drug, unspecified abuse 304.80 and Other disorder of impulse control 312.39 [facility] [id number] [place] [address] 85777- 4637 Apr, Arthritis M19.90 [facility] [id number] [place] [address] 76161- 8077 Apr, Anxiety F41.9 ; Unspecified episodic mood disorder 296.90 ; Combinations of drug dependence excluding opioid type drug, unspecified abuse 304.80 and Other disorder of impulse control 312.39 [facility] [id number] [place] [address] 96691- 3655 17 Apr, 2015 Arthritis M19.90 [facility] [id number] [place] [address] 50170- 1456 15 Apr, 2015 [facility] [id number] [place] [address] 39836- 3722 15 Apr, 2015 [facility] [id number] [place] [address] 36892- 2173 14 Apr, 2015 Unspecified episodic mood disorder 296.90 ; Combinations of drug dependence excluding opioid type drug, unspecified abuse 304.80 ; Other disorder of impulse control 312.39 and Anxiety F41.9 [facility] [id number] [place] [address] 10899 -4433 11 Apr, 2015 Left knee pain M25.562 [place] [address] [id number] [place] [address] 67075- 7442 11 Apr, 2015 [place] [address] [address] [place] [id number] [address]389 Mar, Unspecified episodic mood disorder 296.90 ; Anxiety F41.9 ; Other disorder of impulse control 312.39 and Combinations of drug dependence excluding opioid type drug, unspecified abuse 304.80 [place] [address] [place] [id number] [place] [address] 15048- 8439 Mar, Hyperpigmentation L81.9 [place] [address] [place] [id number] [place] [address] 71736- 4400 Mar, Arthritis M19.90 and Anxiety F41.9 [place] [address] 65806- 2503 Mar, Unspecified episodic mood disorder F39 ; Combined drug dependence excluding opioids, 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 ; Other disorder of impulse control F63.89 and Anxiety F41.9 [place] [id number] [place] [address] 12764- 9903 12 Mar, 2015 Well woman exam Z01.419 ; Other fatigue R53.83 ; Hot flashes N95.1 ; Depression, unspecified depression type F32.9 and Body mass index (BMI) of 23.0-23.9 in adult Z68.23 [place] [address] [id number] [place] [address] 17466- 9224 11 Mar, 2015 Unspecified episodic mood disorder 296.90 ; Other disorder of impulse control 312.39 and Anxiety F41.9 [place] [address] [id number] [place] [address] 65694- 3788 11 Mar, 2015 Well woman exam Z01.419 [...] of breast Z12.39 and Limited mobility Z74.[address] 33167- 9469 Mar, [place] [address] 64680- 2146 Mar, [address] [address]38- 4026 Mar, [address] 48234- 6452 Mar, Other specified complication of internal orthopedic prosthetic devices, implants and grafts, initial encounter T84.89XA ; Fibromyalgia M79.7 ; Hypertension I10 ; Anemia D64.9 ; Insomnia G47.00 ; Anxiety F41.9 ; Arthritis M19.90 and Migraine G43.909 [place] [address] 22479- 0322 Mar, [place] [address] 64351- 2117 Feb, [place] [address] 99779- 7220 Feb, Arthritis M19.90 and Anxiety F41.[address] 27290- 2621 Feb, [place] [address] 11879- 0377 Feb, [place] [address] 78097- 0508 Feb, [facility] [address] [facility] [id number] [place] [address]- 8893 Feb, [facility] [id number] [place] [address]- 6427 Feb, Anxiety F41.9 [facility] [id number] [place] [address]- 4555 Feb, [facility] [address] [id number] [place] [address], [place] [address]- 0033 Feb, [facility] [id number] [place] [address]- 8411 Feb, 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 and Fibromyalgia M79.7 [facility] [id number] [place] [place] [address]- 1555 Feb, [facility] [id number] [place] [address], [place] [address]- 0906 Jan, [facility] [id number] [place] [place] [address]- 0650 Jan, [facility] [id number] [place] [address]- 1305 Jan, [facility] [id number] [place] [address]- 8921 24 Jan, 2015 [facility] [id number] [place] [place] [address] 2549 16 Jan, 2015 [facility] [address] [place] [address] [id number] [place] [place] [address]- 2549 08 Jan, 2015 [facility] [id number] [place] [place] [address]- 7821 Jan, [facility] [address] [place] [address] [id number] [place] [address]- 2549 Jan, [facility] [address] [address] [id number] [place] [address]- 7251 Dec, [facility] [address] [facility] [id number], [place] [address]- 0528 Dec, Left knee pain M25.562 [facility] [id number] [place] [address] 48697- 2820 Dec, Left knee pain M25.562 [facility] [id number] [place] [address] 91835- 0833 Dec, Fibromyalgia M79.7 ; Hypertension I10 and Arthritis M19.90 [facility] [id number] [place] [address] 68594- 0566 Dec, [facility] [id number] [place] [address] 44136- 0372 Dec, [facility] [id number] [place] [address] 37110- 4268 Dec, [facility] [id number] [place] [address] 75145- 1592 Dec, [facility] [id number] [place] [address] 71820- 0878 Nov, [facility] [id number] [place] [address] 13889- 8618 Nov, [facility] [id number] [place] [address] 45001- 2834 Nov, [facility] [id number] [place] [address] 57233- 7042 Nov, Hypertension I10 [facility] [address], [place] [address]- 2445 Oct, [facility] [id number] [place] [address] 11838- 8076 Oct, [facility] [address], [place] [address]- 7264 Oct, [facility] [id number] [place] [address] 80750- 3268 Oct, [facility] [address] [id number] [place] [address]- 9420 Oct, [facility] [place] [facility] [address] [id number], [place] [address]- 5272 Sep, [facility] [place] [facility] [address] [id number], [place] [address]- 3122 Sep, [facility] [place] [facility] [address] [id number], [place] [address]- 5344 Sep, Hip pain associated with recalled total hip arthroplasty hardware 996.77 [facility] [place] [facility] [address] [id number] [place] [address]- 9366 Sep, [facility] [place] [facility] [address] [facility] [id number] 2715 Sep, [facility] [place] [facility] [address] [facility] [id number], [place] [address]- 7463 Sep, [facility] [place] [facility] [address] [id number], [place] [address]- 8796 Aug, [facility] [place] [facility] [address] [facility] [id number], [place] [address]- 0455 Jul, [facility] [place] [facility] [address] [facility] [id number], [place] [address]- 8758 June, [facility] [place] [facility] [address] [facility] [id number], [place] [address]- 9626 June, [facility] [place] [facility] [address] [id number], [place] [address]- 2419 June, [facility] [place] [facility] [address] [id number][place] 2540 June, [facility] [place] [facility] [address] [id number], [place] [address]- 2355 June, [facility] [place] [facility] [address] [id number][place] 8817 June, [facility] [place] [facility] [address] [id number] [place] [address]- 2697 30 May, 2014 [facility] [place] [facility] [address] [id number] [place] [address]- 3355 14 May, 2014 [facility] [place] [facility] [address] [id number] [place] [address]- 2548 May, [facility] [place] [facility] [address] [id number] [place] [address]- 0454 30 Apr, 2014 [facility] [place] [facility] [address] [id number] [place] [address]- 1636 30 Apr, 2014 [facility] [place] [facility] [address] [id number] [place] [address]- 8855 Apr, [facility] [place] [facility] [address] [id number] [place] [address]- 3608 Apr, [facility] [place] [facility] [address] [id number] [place] [address]- 8751 Apr, [facility] [place] [facility] [address] [id number] [place] [address]- 8048 Apr, [facility] [place] [facility] [address] [id number] [place] [address]- 4130 Apr, [facility] [place] [facility] [address] [id number], [place] [address]- 7174 Apr, [facility] [place] [facility] [address] [id number], [place] [address]- 4365 Apr, [facility] [place] [facility] [address] [id number] [place] [address]- 2954 Apr, [facility] [place] [facility] [address] [id number] [place] [address]- 9968 Apr, [facility] [place] [facility] [address] [id number] [place] [address]- 2517 Mar, [facility] [place] [facility] [address] [id number] [place] [address]- 8896 26 Mar, 2014 [facility] [place] [facility] [address] [id number] [place] [address]- 7806 Mar, 2014 [facility] [place] [facility] [address] [id number] [place] 4366 16 Mar, 2014 [facility] [place] [facility] [address] [id number] [place] [address]- 6626 Mar, 2014 [facility] [place] [facility] [address] [id number] [place] [address]- 8039 Mar, [facility] [place] [facility] [address] [id number] [place] [address]- 8603 Feb, [facility] [place] [facility] [address] [id number] [place] [address]- 3374 Feb, [facility] [place] [facility] [address] [id number] [place] [address]- 1555 Feb, [facility] [place] [facility] [address] [id number] [place] [address]- 8143 Feb, [facility] [place] [facility] [address] [id number] [place] [address]- 0029 Jan, [facility] [place] [facility] [address] [id number] [place] [address]- 6616 Jan, [facility] [place] [facility] [address] [id number] [place] [address]- 7660 Jan, [facility] [place] [facility] [address] [id number] [place] 9074 Jan, [facility] [place] [facility] [address] [id number] [place] [address]- 8086 Dec, [facility] [place] [facility] [address] [id number] [place] [address]- 1226 Dec, [facility] [place] [facility] [address] [id number] [place] [address]- 4141 Dec, [facility] [place] [facility] [address] [id number] [place] [address]- 2913 Dec, [facility] [place] [facility] [address] [id number] [place] [address]- 1040 Dec, [facility] [place] [facility] [address] [id number] [place] [address]- 6043 Dec, [facility] [place] [facility] [address] [id number] [place] [address]- 1752 Dec, [facility] [place] [facility] [address] [id number] [place] [address]- 0877 Dec, [facility] [place] [facility] [address] [id number] [place] [address]- 8137 Dec, [facility] [place] [facility] [address] [id number] [place] [address]- 1548 Dec, [facility] [place] [facility] [address] [id number] [place] [address]- 4642 Dec, [facility] [place] [facility] [address] [id number] [place] [address]- 4043 Nov, [facility] [place] [facility] [address] [id number] [place] [address]- 3424 Nov, [facility] [place] [facility] [address] [id number] [place] [address]- 7568 28 Nov, 2013 [facility] [place] [facility] [address] [id number], [place] [address]- 2044 Nov, [facility] [place] [facility] [address] [id number] [place] [address]- 0859 17 Nov, 2013 [facility] [place] [facility] [address] [id number], [place] [address]- 5208 15 Nov, 2013 [facility] [place] [facility] [address] [id number] [place] [address]- 3503 15 Nov, 2013 [facility] [place] [facility] [address] [id number] [place] [address]- 7346 15 Nov, 2013 [facility] [place] [facility] [address] [id number] [place] [address]- 3436 15 Nov, 2013 [facility] [place] [facility] [address] [id number] [place] [address]- 1974 14 Nov, 2013 [facility] [place] [facility] [address] [id number] [place] [address]- 4188 14 Nov, 2013 [facility] [place] [facility] [address] [id number] [place] [address]- 2591 14 Nov, 2013 [facility] [place] [facility] [address] [id number] [place] [address]- 3884 14 Nov, 2013 [facility] [place] [facility] [address] [id number] [place] [address]- 9787 13 Nov, 2013 [facility] [place] [facility] [address] [id number] [place] [address]- 6127 13 Nov, 2013 [facility] [place] [facility] [address] [id number] [place] [address]- 7125 11 Nov, 2013 [facility] [place] [facility] [address] [id number] [place] [address]- 5912 11 Nov, 2013 [facility] [place] [facility] [address] [id number] [place] [address]- 9983 07 Nov, 2013 [facility] [place] [facility] [address] [id number] [place] [address]- 8268 07 Nov, 2013 [facility] [place] [facility] [address] [id number], [place] [address]- 5621 07 Nov, 2013 [facility] [place] [facility] [address] [id number] [place] [address]- 7950 07 Nov, 2013 [facility] [place] [facility] [address] [id number] [place] [address]- 7804 30 Oct, 2013 [facility] [place] [facility] [address] [id number] [place] [address]- 8727 30 Sep, 2013 [facility] [place] [facility] [address] [id number] [place] [address]- 9119 26 Oct, 2013 [facility] [place] [facility] [address] [id number] [place] [address]- 9276 26 Oct, 2013 [facility] [place] [facility] [address] [id number] [place] [address]- 7532 Oct, 2013 [facility] [place] [facility] [address] [id number] [place] [address]- 4796 Oct, 2013 [facility] [place] [facility] [address] [id number] [place] [address] 2543 18 Oct, 2013 [facility] [place] [facility] [address] [id number] [place] [address]- 3791 18 Oct, 2013 [facility] [place] [facility] [address] [id number] [place] [address]- 9578 Oct, 2013 [facility] [place] [facility] [address] [id number] [place] [address]- 4017 Oct, 2013 [facility] [place] [facility] [address] [id number] [place] [address]- 4941 Oct, 2013 [facility] [place] [facility] [address] [id number] [place] [address]- 6480 Oct, 2013 [facility] [place] [facility] [address] [id number] [place] [address]- 3128 Oct, 2013 [facility] [place] [facility] [address] [id number] [place] [address]- 2545 Oct, 2013 [facility] [place] [facility] [address] [id number] [place] [address]- 4176 Sep, [facility] [place] [facility] [address] [id number] [place] [address]- 8976 Sep, [facility] [place] [facility] [address] [id number] [place] [address]- 7594 Sep, [facility] [place] [facility] [address] [id number] [place] [address]- 9936 Sep, [facility] [place] [facility] [address] [id number] [place] [address]- 3289 Sep, [facility] [place] [facility] [address] [id number] [place] [address]- 9830 Sep, [facility] [place] [facility] [address] [id number] [place] [address]- 1113 Sep, [facility] [place] [facility] [address] [id number] [place] [address]- 0250 Sep, [facility] [place] [facility] [address] [id number] [place] [address]- 6502 Sep, [facility] [place] [facility] [address] [id number] [place] [address]- 0730 Sep, [facility] [place] [facility] [address] [id number] [place] [address]- 1601 Sep, [facility] [place] [facility] [address] [id number] [place] [address]- 6948 Sep, [facility] [place] [facility] [address] [id number] [place] [address]- 8330 Sep, [facility] [place] [facility] [address] [id number] [place] [address]- 2896 Sep, [facility] [place] [facility] [address] [id number] [place] [address]- 6287 Sep, [facility] [place] [facility] [address] [id number] [place] [address]- 5048 Sep, [facility] [place] [facility] [address] [id number] [place] [address]- 3087 Sep, [facility] [place] [facility] [address] [id number] [place] [address]- 9025 Sep, [facility] [place] [facility] [address] [id number] [place] [address]- 7179 Aug, [facility] [place] [facility] [address] [id number] [place] [address]- 6121 Aug, [facility] [address] [id number] [place] [address]- 4542 Aug, [facility] [place] [facility] [address] [id number] [place] [address]- 6443 Aug, [facility] [address] [id number] [place] [address]- 4783 Aug, [facility] [place] [facility] [address] [id number] [place] [address]- 0398 Aug, [facility] [address] [id number] [place] [address]- 1018 Jul, [facility] [address] [id number] [place] [address]- 1116 Jul, [facility] [address] [id number] [place] [address]- 8922 Jul, [facility] [address] [id number] [place] [address]- 1917 Jul, [facility] [place] [facility] [address] [id number] [place] [address]- 7524 June, [facility] [address] [id number] [place] [address]- 5990 June, [facility] [place] [facility] [address] [id number] [place] [address]- 8546 June, [facility] [place] [facility] [address] [id number] [place] [address]- 7912 June, [facility] [place] [facility] [address] [id number] [place] [address]- 7857 June, [facility] [place] [facility] [address] [id number] [place] [address]- 4248 June, [facility] [place] [facility] [address] [id number] [place] [address]- 6112 June, [facility] [place] [facility] [address] [id number] [place] [address]- 0811 May, [facility] [place] [facility] [address] [id number] [place] [address]- 7631 May, [facility] [place] [facility] [address] [id number] [place] [address]- 5814 May, [facility] [place] [facility] [address] [id number] [place] [address]- 6162 May, [facility] [place] [facility] [address] [id number] [place] [address]- 0374 May, [facility] [place] [facility] [address] [id number] [place] [address]- 6608 May, [facility] [place] [facility] [address] [id number] [place] [address]- 0056 31 Apr, 2013 [facility] [place] [facility] [address] [id number] [place] [address]- 9831 31 Apr, 2013 [facility] [place] [facility] [address] [id number] [place] [address]- 4708 28 Apr, 2013 [facility] [place] [facility] [address] [id number] [place] [address]- 4590 28 Apr, 2013 [facility] [place] [facility] [address] [id number] [place] [address]- 4613 14 Apr, 2013 [facility] [place] [facility] [address] [id number] [place] [address]- 9537 14 Apr, 2013 [facility] [place] [facility] [address] [id number] [place] [address]- 4132 12 Apr, 2013 [facility] [place] [facility] [address] [id number] [id number] 8832 12 Apr, 2013 [facility] [place] [facility] [address] [id number] [place] [address]- 8661 10 Apr, 2013 [facility] [place] [facility] [address] [id number], [place] [address]- 5078 Apr, [facility] [place] [facility] [address] [id number] [place] [address]- 0680 Apr, [facility] [place] [facility] [address] [id number] [place] [address]- 4878 Apr, [facility] [place] [facility] [address] [id number] [place] [address] Apr, [facility] [place] [facility] [address] [id number] [place] [address] Apr, [facility] [place] [facility] [address] [id number] [place] [address] Mar, [facility] [place] [facility] [address] [id number] [place] [address] Mar, [facility] [place] [facility] [address] [id number] [place] [address] Mar, [facility] [place] [facility] [address] [id number] [place] [address] Feb, [facility] [place] [facility] [address] [id number] [place] [address] Feb, [facility] [place] [facility] [address] [id number] [place] [address] Feb, [facility] [place] [facility] [address] [id number] [place] [address] Feb, [facility] [place] [facility] [address] [id number] [place] [address] Feb, [facility] [place] [facility] [address] [id number] [place] [address] Feb, [facility] [place] [facility] [address] [id number] [place] [address]70 Feb, [facility] [place] [facility] [address] [id number] [place] [address] Feb, [facility] [place] [facility] [address] [id number] [place] [address] Feb, [facility] [address] [id number] [place] [address] Feb, [facility] [place] [facility] [address] [id number] [place] [address] Jan, [facility] [place] [facility] [address] [id number] [place] [address] Jan, [facility] [place] [facility] [address] [id number] [place] [address]- [address] Jan, [facility] [place] [facility] [address] [id number] [place] [address] Jan, [facility] [address] [id number] [place] [address] Jan, [facility] [address] [id number] [place] [address] Jan, [facility] [address] [id number] [place] [address] Jan, [facility] [address] [id number] [place] [address] Jan, [facility] [address] [id number] [place] [address] Jan, [facility] [place] [facility] [address] [id number] [place] [address] Jan, [facility] [place] [facility] [address] [id number] [place] [address]- [address] 17 Jan, 2013 [facility] [place] [facility] [address] [id number] [place] [address] 17 Jan, 2013 [facility] [place] [facility] [address] [id number] [place] [address]- [address] 16 Jan, 2013 [facility] [place] [facility] [address] [id number] [place] [address]- [address] Jan, [facility] [address] [id number] [place] [address] Jan, [facility] [place] [facility] [address] [id number] [address] Jan, [facility] [place] [facility] [address] [facility] [id number] [place] [address] Jan, [facility] [place] [facility] [address] [id number], [place] [address] Jan, [facility] [place] [facility] [address] [id number] [place] [address] Jan, [facility] [place] [facility] [address] [id number] [place] [address] Jan, [facility] [place] [facility] [address] [facility] [id number], [place] [address] Jan, [facility] [place] [facility] [address] [id number], [place] [address] Dec, [facility] [place] [facility] [address] [id number], [place] [address] Dec, [facility] [place] [facility] [address] [id number], [place] [address] Dec, [facility] [place] [facility] [address] [id number], [place] [address] Dec, [facility] [place] [facility] [address] [id number], [place] [address] Dec, [facility] [place] [facility] [address] [id number], [place] [address] Dec, [facility] [place] [facility] [address] [id number], [place] [address] Dec, [facility] [place] [facility] [address] [id number], [place] [address] Dec, [facility] [place] [facility] [address] [id number] [place] [address]- [address]698 Dec, [facility] [place] [facility] [address] [id number] [place] [address]- [address] Dec, [facility] [place] [facility] [address] [id number] [place] [address] Nov, [facility] [place] [facility] [address] [id number] [place] [address] Nov, [facility] [place] [facility] [address] [id number] [place] [address]- [address] Nov, [facility] [place] [facility] [address] [id number] [place] [address] Nov, [facility] [place] [facility] [address] [id number] [place] [address]- [address]683 Nov, [facility] [place] [facility] [address] [id number] [place] [address]- [address] Nov, [facility] [place] [facility] [address] [id number] [place] [address]- 279[address] Nov, [facility] [place] [facility] [address] [id number] [place] [address]- 6661 Nov, [facility] [place] [facility] [address] [id number] [place] [address]- 8512 Nov, [facility] [place] [facility] [address] [id number] [place] [address]- [address] Nov, [facility] [place] [facility] [address] [id number] [place] [address] Oct, [facility] [place] [facility] [address] [id number] [place] [address] Oct, [facility] [place] [facility] [address] [id number] [place] [address]682 Oct, [facility] [place] [facility] [address] [id number] [place] [address]15 Oct, [facility] [place] [facility] [address] [id number] [place] [address] 254 Oct, [facility] [address] [id number] [place] [address] Sep, [facility] [address] [id number] [place] [address] Sep, [facility] [address] [id number] [place] [address]201 Aug, [facility] [address] [id number] [place] [address] 1051 Aug, [facility] [address] [id number] [place] [address] 6762 Aug, [facility] [address] [id number] [place] [address] Aug, [facility] [address] [id number] [place] [address] 4459 Aug, [facility] [address] [id number] [place] [address] 3211 Aug, [facility] [address] [id number] [place] [address] 4559 Aug, [facility] [address] [id number] [place] [address]- 254 Jul, [facility] [address] [id number] [place] [address] 2548 Jul, [facility] [address] [id number] [place] [address] 0074 June, [facility] [place] [facility] [address] [id number] [place] [address] 2256 June, [facility] [address] [id number] [place] [address] 2543 June, [facility] [address] [id number] [place] [address] 3728 June, [facility] [address] [id number] [place] [address]- 6486 June, [facility] [address] [id number] [place] [address] 8556 June, [facility] [address] [id number] [place] [address] 0835 June, [facility] [address] [id number] [place] [address]- 6999 June, [facility] [address] [id number] [place] [address]- 9336 June, [facility] [address] [id number] [place] [address]- 6687 June, [facility] [address] [id number] [place] [address] June, [facility] [address] [id number] [place] [address] 6830 May, [facility] [address] [id number] [place] [address] 8323 May, [facility] [address] [id number] [place] [address]- 2316 May, [facility] [address] [id number] [place] [address]- 0081 May, [facility] [place] [facility] [address] [id number] [place] [address]- 0914 Apr, [facility] [place] [facility] [address] [id number] [place] [address]- 9202 Apr, [facility] [place] [facility] [address] [id number] [place] [address] 8849 Apr, [facility] [place] [facility] [address] [id number] [place] [address] 9388 Mar, [facility] [place] [facility] [address] [id number] [place] [address]- 4186 11 Mar, 2012 [facility] [address] [id number] [place] [address] 8166 Feb, [facility] [place] [facility] [address] [id number] [place] [address] 1046 Feb, [facility] [address] [id number] [place] [address]- 5966 Feb, [facility] [place] [facility] [address] [id number] [place] [address] 6156 Feb, [facility] [address] [id number] [place] [address] 3796 Feb, [facility] [address] [id number] [place] [address]- 5636 Feb, [facility] [address] [id number] [place] [address]- 9152 Feb, [facility] [address] [id number] [place] [address]- 9450 Jan, [facility] [address] [id number] [place] [address]- 3414 31 Jan, 2012 [facility] [address] [id number] [place] [address]- 8629 Jan, [facility] [address] [id number] [place] [address]- 2166 17 Jan, 2012 [facility] [address] [id number] [place] [address]- 2546 17 Jan, 2012 [facility] [place] [facility] [address] [id number] [place] [address]- 1196 Jan, [facility] [place] [facility] [address] [id number] [place] [address]- 0436 Jan, [facility] [place] [facility] [address] [id number] [place] [address]- 2539 Jan, [facility] [place] [facility] [address] [id number] [place] [address]- 2285 Jan, [facility] [place] [facility] [address] [id number] [place] [address]- 9030 Jan, [facility] [place] [facility] [address] [id number] [place] [address] Jan, [facility] [place] [facility] [address] [id number] [place] [address]- 3355 Dec, [facility] [place] [facility] [address] [id number] [place] [address]- 0865 Dec, [facility] [place] [facility] [address] [id number] [place] [address]- 7540 Dec, [facility] [place] [facility] [address] [id number] [place] [address]- 8648 Dec, [facility] [place] [facility] [address] [id number] [place] [address]- 4771 Nov, [facility] [place] [facility] [address] [id number] [place] [address]- 9906 Nov, [facility] [place] [facility] [address] [id number], [place] [address] 3537 Nov, [facility] [place] [facility] [address] [id number], [place] [address] 27 Oct, 2011 [facility] [place] [facility] [address] [id number], [place] [address] 24 Sep2011 [facility] [place] [facility] [address] [id number] [place] [address]- 4935 21 Sep2011 [facility] [place] [facility] [address] [id number] [place] [address]- 6641 10 Oct, 2011 [facility] [place] [facility] [address] [id number] [place] [address]- 7188 07 Oct, 2011 [facility] [place] [facility] [address] [id number] [place] [address]- 6409 04 Oct, 2011 [facility] [place] [facility] [address] [id number] [place] [address]- 9326 Oct, [facility] [place] [facility] [address] [id number] [place] [address]- 7466 Sep, [facility] [place] [facility] [address] [id number] [place] [address]- 5536 Sep, [facility] [place] [facility] [address] [id number] [place] [address]- 4279 Sep, [facility] [place] [facility] [address] [id number] [place] [address]- 5849 Sep, [facility] [place] [facility] [address] [id number] [place] [address]- 9347 Sep, [facility] [place] [facility] [address] [id number] [place] [address]- 2499 Aug, [facility] [place] [facility] [address] [id number] [place] [address]- 1297 Aug, [facility] [place] [facility] [address] [id number] [place] [address]- 5586 Aug, [facility] [place] [facility] [address] [id number] [place] [address]- 8763 Aug, [facility] [place] [facility] [address] [id number] [place] [address]- 8951 Aug, [facility] [place] [facility] [address] [id number] [place] [address]- 5447 Aug, [facility] [place] [facility] [address] [id number] [place] [address]- 5746 Aug, [facility] [place] [facility] [address] [id number] [place] [address]- 7249 Jul, [facility] [place] [facility] [address] [id number] [place] [address]- 1499 Jul, [facility] [place] [facility] [address] [id number] [place] [address]- 8175 Jul, [facility] [place] [facility] [address] [id number] [place] [address]- 8378 Jul, [facility] [place] [facility] [address] [id number] [place] [address]- 1019 Jul, [facility] [place] [facility] [address] [id number] [place] [address]- 1421 Jul, [facility] [place] [facility] [address] [id number] [place] [address]- 6718 07 Jul, 2011 [facility] [place] [facility] [address] [id number] [place] [address]- 9478 Jul, [facility] [place] [facility] [address] [id number] [place] [address]- 2446 Jul, [facility] [place] [facility] [address] [id number] [place] [address]- 2133 June, [facility] [place] [facility] [address] [id number] [place] [address]- 7070 June, [facility] [place] [facility] [address] [id number] [place] [address]- 5934 June, [facility] [place] [facility] [address] [id number] [place] [address]- 1181 June, [facility] [place] [facility] [address] [id number] [place] [address]- 4746 June, [facility] [place] [facility] [address] [id number] [place] [address]- 0621 June, [facility] [place] [facility] [address] [id number] [place] [address]- 2932 June, [facility] [place] [facility] [address] [id number] [place] [address]- 1171 June, [facility] [place] [facility] [address] [id number] [place] [address]- 8226 May, [facility] [place] [facility] [address] [id number] [place] [address]- 7713 May, [facility] [place] [facility] [address] [id number] [place] [address]- 0226 May, [facility] [place] [facility] [address] [id number] [place] [address]- 8201 May, [facility] [place] [facility] [address] [id number] [place] [address]- 5587 May, [facility] [place] [facility] [address] [id number] [place] [address]- 3108 May, [facility] [place] [facility] [address] [id number] [place] [address] May, [facility] [place] [facility] [address] [id number] [place] [address]- 4075 Apr, [facility] [place] [facility] [address] [id number] [place] [address]- 7651 Apr, [facility] [place] [facility] [address] [id number] [place] [address]- 9047 Apr, [facility] [place] [facility] [address] [id number] [place] [address]- 1221 Apr, [facility] [place] [facility] [address] [id number] [place] [address]- 2314 Apr, [facility] [place] [facility] [address] [id number] [place] [address]- 1339 Apr, [facility] [place] [facility] [address] [id number] [place] [address]- 0132 Apr, [facility] [place] [facility] [address] [id number] [place] [address]- 3825 Mar, [facility] [place] [facility] [address] [id number] [place] [address]- 1891 Mar, [facility] [place] [facility] [address] [id number] [place] [address]- 7267 14 Mar, 2011 [facility] [address] [id number] [place] [address]- 7156 13 Mar, 2011 [facility] [place] [facility] [address] [id number] [place] [address]- 8496 09 Mar, 2011 [facility] [address] [id number] [place] [address]- 1446 08 Mar, 2011 [facility] [address] [id number] [place] [address] 2541 Mar, [facility] [address] [id number] [place] [address]- 7247 Feb, [facility] [address] [id number] [place] [address]- 1635 Feb, [facility] [address] [id number] [place] [address]- 5033 Feb, [facility] [address] [id number] [place] [address]- 7677 Feb, [facility] [address] [id number] [place] [address]- 6092 Feb, [facility] [address] [id number] [place] [address]- 9524 Feb, [facility] [address] [id number] [place] [address]- 5829 Feb, [facility] [place] [facility] [address] [id number] [place] [address]- 3862 Feb, [facility] [place] [facility] [address] [id number] [place] [address]- 3685 Feb, [facility] [place] [facility] [address] [id number] [place] [address]- 1854 Feb, [facility] [place] [facility] [address] [id number] [place] [address]- 8185 27 Jan, 2011 [facility] [place] [facility] [address] [id number] [place] [address]- 0402 Jan, [facility] [place] [facility] [address] [id number] [place] [address]- 5646 Jan, [facility] [place] [facility] [address] [id number] [place] [address]- 0646 Jan, [facility] [place] [facility] [address] [id number] [place] [address]- 1037 Jan, [facility] [place] [facility] [address] [id number] [place] [address]- 9730 Jan, [facility] [place] [facility] [address] [id number] [place] [address]- 9039 Jan, [facility] [place] [facility] [address] [id number] [place] [address]- 6530 Jan, [facility] [place] [facility] [address] [id number] [place] [address]- 3643 Jan, [facility] [place] [facility] [address] [id number] [place] [address]- 5767 Jan, [facility] [place] [facility] [address] [id number] [place] [address]- 9070 Jan, [facility] [place] [facility] [address] [id number] [place] [address]- 5247 17 Dec, 2010 [facility] [place] [facility] [address] [id number], [place] [address]- 4880 17 Dec, 2010 [facility] [place] [facility] [address] [id number] [place] [address]- 9174 17 Dec, 2010 [facility] [place] [facility] [address] [id number] [place] [address]- 1137 16 Dec, 2010 [facility] [place] [facility] [address] [id number] [place] [address]- 8596 14 Dec, 2010 [facility] [place] [facility] [address] [id number] [place] [address]- 5036 09 Dec, 2010 [facility] [address] [id number] [place] [address]- 0903 Dec, [facility] [place] [facility] [address] [id number] [place] 6244 Dec, [facility] [address] [id number] [place] [address]- 8794 Dec, [facility] [place] [facility] [address] [id number] [place] [address]- 4660 Nov, [facility] [address] [id number] [place] [address]- 3367 Nov, [facility] [place] [facility] [address] [id number] [place] [address]- 5280 Nov, [facility] [address] [id number] [place] [address]- 7961 Nov, [facility] [address] [id number] [place] [address]- 5398 24 Nov, 2010 [facility] [place] [facility] [address] [id number] [place] [address]- 0482 Nov, [facility] [address] [id number] [place] [address]- 1088 Aug, [facility] [place] [facility] [address] [id number] [place] [address]- 0871 14 Feb, 2010 [facility] [place] [facility] [address] [id number] [place] [address]- 5101 14 Jan, 2010 [facility] [place] [facility] [address] [id number] [place] [address]- 3381 Jan, [facility] [place] [facility] [address] [id number] [place] [address]- 4415 Jan, [facility] [place] [facility] [address] [id number] [place] [address]- 5527 Jan, [facility] [address] [id number] [address]18 Jan, [facility] [id number], [place] [address]- 0764 Dec, [facility] [id number], [place] [address]- 3317 Dec, [facility] [id number] [place] [address]- 4261 Dec, [facility] [id number], [place] [address]- 8005 Dec, [facility] [id number], [place] [address]- 3963 Nov, [facility] [id number], [place] [address]- 8255 Nov, [facility] [id number], [place] [address]- 5746 Nov, IMMUNIZATIONS No Known Immunizations SOCIAL HISTORY Never Assessed REASON FOR VISIT Requests return call PLAN OF CARE VITAL SIGNS [...]
--- OUTSIDE RECORDS SUMMARY | 2018-01-13 20:59 | XMS REPORT ---
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 Active 614220381 Problem Hypertension I10 Active 29069317 Problem Arthritis M19.90 Active 2137923 Problem Other disorder of impulse control F63.89 Active 57153132 Problem Anxiety F41.9 Active 52419596 Problem Unspecified episodic mood disorder F39 Active 50546802 Problem Left hip pain M25.552 Active 42926471 ALLERGIES Substance Reaction Event Type Date Status Propranolol HCl chest pain, headache Drug Allergy May, Active Bactrim unknown Drug Allergy May, Active Penicillins unknown Non Drug Allergy May, Active ENCOUNTERS Encounter Location Date Diagnosis [facility] [address] [id number] [id number] Aug, [facility] [address] [facility] [id number], [place] [address] Aug, Arthritis M19.90 [facility] [id number] [place] [address] 56874- 4751 Aug, [facility] [id number] [place] [address] 42333- 0654 Aug, Obesity (BMI 30.0-34.9) E66.9 ; Unspecified episodic mood disorder F39 and Hypertension I10 [facility] [id number] [place] [address] 31883- 6838 Aug, Unspecified episodic mood disorder F39 [facility] [id number] [place] [address] 54589- 0033 Aug, [facility] [id number] [place] [address] 95201- 5596 Jul, Unspecified episodic mood disorder F39 [facility] [id number] [place] [address] 42135- 5345 Jul, [facility] [id number] [place] [address] 92088- 9736 Jul, Arthritis M19.90 [facility] [id number] [place] [address] 39564- 8434 Jul, Left hip pain M25.552 ; Hypertension I10 ; Other obesity due to excess calories E66.09 and Body mass index (BMI) of 34.0-34.9 in adult Z68.34 [facility] [id number] [place] [address] 82156- 5467 Jul, Unspecified episodic mood disorder F39 [facility] [id number] [place] [address] 30504- 3845 June, Gastroesophageal reflux disease, esophagitis presence not specified K21.9 [facility] [id number] [place] [address] 03834- 3347 June, [facility] [id number] [place] [address] 46694- 0306 June, [facility] [address], [place] [address] 58[address] June, Arthritis M19.90 [facility] [address], [place] [address] 65[address] June, [facility] [address], [place] [address] 4347 June, [facility] [id number] [place] [address] 00322- 3213 June, Unspecified episodic mood disorder F39 [facility] [address] [place] [address] 31415- 0812 May, Unspecified episodic mood disorder F39 [facility] [address], [place] [address] 7122 May, [facility] [id number] [place] [address] 41693- 3297 May, Arthritis M19.90 [facility] [address], [place] [address] May, Dysuria R30.0 ; Abscess L02.91 and Acute cystitis without hematuria N30.00 [facility] [address], [place] [address] 2[address] May, Other disorder of impulse control F63.89 ; Unspecified episodic mood disorder F39 ; Combined drug dependence excluding opioids, 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 ; Anxiety F41.9 and Other psychoactive substance dependence, 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 [facility] [address], [place] [address] 6[address] May, [facility] [address] [place] [address] 25713- 1305 May, Other disorder of impulse control F63.89 ; Unspecified episodic mood disorder F39 ; Combined drug dependence excluding opioids, 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 ; Other psychoactive substance dependence, 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 and Anxiety F41.9 [facility] [id number] [place] [address] 54920- 0353 May, Other chronic pain G89.29 ; Left hip pain M25.552 ; Hypertension I10 ; 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, 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 and Unspecified episodic mood disorder F39 [facility] [id number] [place] [address] 86248- 7917 Apr, [facility] [id number] [place] [address] 90976 -1698 Apr, Neck pain M54.2 ; Left hip pain M25.552 and Fall, initial encounter W19.XXXA [facility] [address] 17986- 6383 Apr, Unspecified episodic mood disorder F39 ; Combined drug dependence excluding opioids, 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 ; Anxiety F41.9 ; Other psychoactive substance dependence, 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 and Other disorder of impulse control F63.89 [facility] [id number] [place] [address] 10776- 6835 Apr, [facility] [id number] [place] [address] 48319- 4435 Apr, Arthritis M19.90 and Unspecified episodic mood disorder F39 [facility] [id number] [place] [address] 23743- 8538 Apr, Unspecified episodic mood disorder F39 [facility] [id number] [place] [address] 41254- 6094 Apr, [facility] [id number] [place] [address] 63880- 6478 08 Apr, 2017 [address] [place] [id number] [place] [address] 16812- 8439 07 Apr, 2017 Unspecified episodic mood disorder F39 ; Combined drug dependence excluding opioids, 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 ; Anxiety F41.9 ; Other psychoactive substance dependence, 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 and Other disorder of impulse control F63.89 [facility] [id number] [place] [address] 87232- 4606 Mar, Unspecified episodic mood disorder F39 [facility] [id number] [place] [address] 46833- 4296 Mar, Gastroesophageal reflux disease, esophagitis presence not specified K21.9 [facility] [id number] [place] [address] 34643- 6216 Mar, Arthritis M19.90 and Unspecified episodic mood disorder F39 [facility] [id number] [place] [address] 87688- 3046 Feb, [facility] [id number] [place] [address] 97280- 0716 Feb, [facility] [id number] [place] [address] 67745- 7106 Feb, [facility] [id number] [place] [address] 37568- 3938 Feb, Arthritis M19.90 [facility] [id number] [place] [address] 56264- 9900 Feb, Non-pressure chronic ulcer of right calf, 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 ; Unspecified episodic mood disorder F39 and Left hip pain M25.552 [facility] [address] [place] [address] 91568- 9296 Feb, [facility] [id number] [place] [address] 81396- 2546 Feb, [facility] [id number] [place] [address] 29079 2546 Jan, Arthritis M19.90 [facility] [address] [place] [address] 64269- 2546 Jan, Left hip pain M25.552 and Non-pressure chronic ulcer of right calf, 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 [facility] [address] [place] [address] 40115- 7391 Jan, Chronic hepatitis C without hepatic coma B18.2 [facility] [id number] [place] [address] 19713- 6776 Jan, Encounter for immunization Z23 ; Venous insufficiency ( chronic) (peripheral) I87.2 ; Non-pressure chronic ulcer of unspecified calf limited to breakdown of skin L97.201 and Gastroesophageal reflux disease, esophagitis presence not specified K21.9 [facility] [id number] [place] [address] 40579- 5989 Jan, [facility] [id number] [place] [address] 09029- 9280 Jan, Chronic hepatitis C without hepatic coma B18.2 and Encounter for immunization Z23 [facility] [id number] [place] [address] 54912- 4650 Jan, Arthritis M19.90 [facility] [id number] [place] [address] 28537- 9240 Jan, [facility] [id number] [place] [address] 49388- 7459 Dec, [facility] [id number] [place] [address] 35077- 2940 Dec, Unspecified episodic mood disorder F39 [facility] [id number] [place] [address] 40555- 5995 Dec, Arthritis M19.90 [facility] [id number] [place] [address] 01744- 0945 Dec, Arthritis M19.90 [facility] [id number] [place] [address] 19831- 3536 Nov, [facility] [id number] [place] [address] 18687- 2664 Nov, [facility] [id number] [place] [address] 42236- 9002 Nov, Other psychoactive substance dependence, 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 ; 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, 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 and Chronic hepatitis C without hepatic coma B18.2 [facility] [id number] [place] [address] 49936- 4355 Nov, Arthritis M19.90 [facility] [id number] [place] [address] 76628 -2342 Oct, Partial thickness burn of abdomen, initial encounter T21.22XA [facility] [id number] [place] [address] 19490- 6800 Oct, [facility] [id number] [place] [address] 20692- 0849 Sep, Arthritis M19.90 [facility] [id number] [place] [address] 54214- 4305 Sep, [facility] [id number] [place] [address] 17824- 6575 Sep, [facility] [id number] [place] [address] 24444- 1230 Sep, Unspecified episodic mood disorder F39 ; Chronic hepatitis C without hepatic coma B18.2 and Left hip pain M25.552 [facility] [id number] [place] [address] 94220- 8488 Sep, Arthritis M19.90 and Left hip pain M25.552 [facility] [id number] [place] [address] 68682- 0330 Aug, [facility] [id number] [place] [address] 79317- 6856 Aug, [facility] [id number] [place] [address] 84547- 6016 Aug, Chronic hepatitis C without hepatic coma B18.2 [facility] [id number] [place] [address] 97937- 7523 Aug, [facility] [address] [place] [address] 39987- 0166 Aug, Chronic hepatitis C without hepatic coma B18.2 [facility] [address] [place] [address] 52789- 8371 Aug, 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, 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 [facility] [id number] [place] [address] 99613- 6517 Aug, [facility] [id number] [place] [address] 17276- 4461 Aug, Chronic hepatitis C without hepatic coma B18.2 and Hypertension I10 [facility] [id number] [place] [address] 58369- 4274 Jul, [facility] [id number] [place] [address] 67666- 9063 June, [facility] [id number] [place] [address] 48385- 4723 Apr, Fibromyalgia M79.7 ; Left hip pain M25.552 and Decubitus ulcer of sacral region, stage 1 L89.151 [facility] [address], [place] [address]- 0258 Apr, [facility] [id number] [place] [address] 74283- 5113 Apr, [facility] [id number] [place] [address] 25853- 0206 Feb, [facility] [id number] [place] [address] 82988- 5455 Dec, Anxiety F41.9 ; Combined drug dependence excluding opioids, 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 and Unspecified episodic mood disorder F39 [facility] [address] [place] [address] 31461- 2255 Dec, [facility] [address], [place] [address]- 9091 Nov, [facility] [id number] [place] [address] 07246- 0374 Nov, [facility] [id number] [place] [address] 97463- 5972 Nov, Other disorder of impulse control F63.89 and Anxiety F41.9 [facility] [id number] [place] [address] 61201- 4550 Oct, [facility] [id number] [place] [address] 21115 -6418 Oct, Open wound of left thigh, initial encounter S71.102A [facility] [id number] [place] [address] 52222- 5954 Oct, [facility] [id number] [place] [address] 28122- 0402 Sep, Unspecified episodic mood disorder F39 ; Other disorder of impulse control 312.39 ; Combined drug dependence excluding opioids, 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 and Anxiety F41.9 [facility] [id number] [place] [address] 75833- 8169 Sep, Other disorder of impulse control 312.39 ; Combined drug dependence excluding opioids, 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 ; Anxiety F41.9 and Unspecified episodic mood disorder F39 [facility] [address] [place] [address] 40652- 6992 Sep, Other chronic pain G89.29 [facility] [id number] [place] [address] 30781- 8258 Sep, [facility] [id number] [place] [address] 65637- 0901 Sep, [facility] [address] [place] [address] 56276- 1164 Aug, [facility] [id number] [place] [address] 97478- 2207 Aug, [facility] [id number] [place] [address] 26527- 9899 Aug, [facility] [id number] [place] [address] 74035- 2630 Jul, [facility] [id number] [place] [address] 36703- 2946 Jul, [facility] [id number] [place] [address] 66031- 8472 Jul, [facility] [id number] [place] [address] 40679- 1782 Jul, Arthritis M19.90 ; Chronic hepatitis C without hepatic coma B18.2 and Left hip pain M25.552 [facility] [id number] [place] [address] 07060- 3043 Jul, Left knee pain M25.562 [facility] [id number] [place] [address] 26928- 5156 Jul, Combined drug dependence excluding opioids, 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 ; Anxiety F41.9 ; Other disorder of impulse control 312.39 and Unspecified episodic mood disorder F39 [facility] [address] [place] [address] 65473- 5447 Jul, Left knee pain M25.562 [facility] [id number] [place] [address] 21586- 1271 Jul, Left knee pain M25.562 and Left hip pain M25.552 [facility] [id number] [place] [address] 95755- 4729 Jul, [facility] [id number] [place] [address] 74927- 4590 June, [facility] [address] [place] [address] 86670- 8451 June, Combinations of drug dependence excluding opioid type drug, unspecified abuse 304.80 ; Other disorder of impulse control 312.39 ; Unspecified episodic mood disorder F39 and Anxiety F41.9 [facility] [id number] [place] [address] 42635- 1524 June, Other fatigue R53.83 ; Headache R51 and Left knee pain M25.562 [facility] [id number] [place] [address] 31818- 4258 June, Unspecified episodic mood disorder F39 ; Combinations of drug dependence excluding opioid type drug, unspecified abuse 304.80 ; Other disorder of impulse control 312.39 and Anxiety F41.9 [facility] [facility] [id number] [place] [address] 90442- 3335 June, Anxiety F41.9 [facility] [id number] [place] [address] 90078- 2326 June, Pain in left knee M25.562 [facility] [id number] [place] [address] 17670- 8322 June, Anxiety F41.9 and Combinations of drug dependence excluding opioid type drug, unspecified abuse 304.80 [facility] [id number] [place] [address] 73958- 6669 June, Unspecified episodic mood disorder 296.90 ; Combinations of drug dependence excluding opioid type drug, unspecified abuse 304.80 and Other disorder of impulse control 312.39 [facility] [id number] [place] [address] 32662- 2671 June, Anxiety F41.9 and Unspecified episodic mood disorder 296.90 [facility] [id number] [place] [address] 37687- 3236 May, Arthritis M19.90 [facility] [id number] [place] [address] 12929- 6134 May, Arthritis M19.90 [facility] [id number] [place] [address] 25060- 0410 May, Anxiety F41.9 ; Combinations of drug dependence excluding opioid type drug, unspecified abuse 304.80 and Other disorder of impulse control 312.39 [place] [address] [address]- 4766 May, Left knee pain M25.562 [place] [address] [place] [address] 40977- 6274 May, Arthritis M19.90 [facility] [id number] [place] [address] 30562- 0046 May, [place] [address] [place] [address] 68629- 5141 May, Anxiety F41.9 ; Unspecified episodic mood disorder 296.90 ; Combinations of drug dependence excluding opioid type drug, unspecified abuse 304.80 and Other disorder of impulse control 312.39 [place] [id number] [place] [address] 41699- 5015 May, Left knee pain M25.562 [facility] [address] [place] [address] 73505- 1333 May, Left knee pain M25.562 ; Combinations of drug dependence excluding opioid type drug, unspecified abuse 304.80 ; Other disorder of impulse control 312.39 ; Fibromyalgia M79.7 ; Hypertension I10 ; Unspecified episodic mood disorder 296.90 and Left hip pain M25.552 [place] [address] [place] [address] 98956- 0230 May, Unspecified episodic mood disorder 296.90 ; Other disorder of impulse control 312.39 ; Combinations of drug dependence excluding opioid type drug, unspecified abuse 304.80 and Anxiety F41.9 [place] [address] [place] [address] 70013- 1229 May, Left knee pain M25.562 ; Combinations of drug dependence excluding opioid type drug, unspecified abuse 304.80 ; Other disorder of impulse control 312.39 ; Fibromyalgia M79.7 ; Hypertension I10 ; Unspecified episodic mood disorder 296.90 and Left hip pain M25.552 [facility] [address], [place] [address]- 0992 May, Anxiety F41.9 ; Unspecified episodic mood disorder 296.90 ; Other disorder of impulse control 312.39 and Combinations of drug dependence excluding opioid type drug, unspecified abuse 304.80 [facility] [address] [place] [address]- 0759 30 Apr, 2015 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 and 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, implants and grafts, initial encounter T84.82XA [facility] [id number] [place] [id number] Apr, Anxiety F41.9 ; Unspecified episodic mood disorder 296.90 ; Combinations of drug dependence excluding opioid type drug, unspecified abuse 304.80 and Other disorder of impulse control 312.39 [facility] [id number] [place] [id number] Apr, Arthritis M19.90 [facility] [id number] [place] [id number] Apr, Anxiety F41.9 ; Unspecified episodic mood disorder 296.90 ; Combinations of drug dependence excluding opioid type drug, unspecified abuse 304.80 and Other disorder of impulse control 312.39 [facility] [address], [place] [address] 17 Apr, 2015 Arthritis M19.90 [facility] [address], [place] [address] 15 Apr, 2015 [facility] [id number], [place] [address] 15 Apr, 2015 [facility] [id number] [place] [id number] 14 Apr, 2015 Unspecified episodic mood disorder 296.90 ; Combinations of drug dependence excluding opioid type drug, unspecified abuse 304.80 ; Other disorder of impulse control 312.39 and Anxiety F41.9 [facility] [address], [place] [address] Apr, Left knee pain M25.562 [place] [id number] [place] [address] 87535- 0226 Apr, [facility] [id number] [place] [address] 93001- 1951 Mar, Unspecified episodic mood disorder 296.90 ; Anxiety F41.9 ; Other disorder of impulse control 312.39 and Combinations of drug dependence excluding opioid type drug, unspecified abuse 304.80 [place] [id number] [place] [address] 09481- 9138 Mar, Hyperpigmentation L81.9 [place] [id number] [place] [address] 15897- 3738 Mar, Arthritis M19.90 and Anxiety F41.9 [place] [id number] [place] [address] 24027- 8707 Mar, Unspecified episodic mood disorder F39 ; Combined drug dependence excluding opioids, 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 ; Other disorder of impulse control F63.89 and Anxiety F41.9 [place] [id number] [place] [address] 45985- 1592 Mar, Well woman exam Z01.419 ; Other fatigue R53.83 ; Hot flashes N95.1 ; Depression, unspecified depression type F32.9 and Body mass index (BMI) of 23.0-23.9 in adult Z68.23 [place] [id number] [place] [address] 81217- 2413 11 Mar, 2015 Unspecified episodic mood disorder 296.90 ; Other disorder of impulse control 312.39 and Anxiety F41.9 [place] [id number] [place] [address] 75359- 4624 11 Mar, 2015 Well woman exam Z01.419 [...] of breast Z12.39 and Limited mobility Z74.[address] [address]- 8644 Mar, [address] 33804- 5279 Mar, [address] 39335- 8892 Mar, [address] 41819- 5399 Mar, Other specified complication of internal orthopedic prosthetic devices, implants and grafts, initial encounter T84.89XA ; Fibromyalgia M79.7 ; Hypertension I10 ; Anemia D64.9 ; Insomnia G47.00 ; Anxiety F41.9 ; Arthritis M19.90 and Migraine G43.[address] 8[address]24- 4144 Mar, [place] [address] [address]- [address]186 Feb, [address] 27999- 0694 Feb, Arthritis M19.90 and Anxiety F41.[address] 85744- 8997 Feb, [place] [address] 95746- 7454 Feb, [facility] [address] [place] [address] 2686 Feb, [facility] [id number] [place] [address], [place] [address]- 6110 Feb, [facility] [address] [place] [address]- 0903 Feb, Anxiety F41.9 [facility] [id number] [place] [address], [place] [address]- 5230 15 Feb, 2015 [facility] [id number] [place] [address], [place] [address]- 3982 Feb, [facility] [id number] [place] [address], [place] [address]- 2945 Feb, 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 and Fibromyalgia M79.7 [facility] [id number] [place] [address], [place] [address]- 8423 Feb, [facility] [address] [place] [address]- 8661 Jan, [facility] [id number] [place] [address], [place] [address]- 4080 Jan, [facility] [address] [place] [address]- 6548 Jan, [facility] [address] [place] [address]- 9434 24 Jan, 2015 [facility] [address], [place] [address]- 5531 16 Jan, 2015 [facility] [address] [place] [address]- 3705 08 Jan, 2015 [facility] [address] [place] [address]- 8750 Jan, [facility] [address], [place] [address] 2826 Jan, [facility] [address], [place] [address]- 16[address] Dec, [facility] [id number] [place] [address] 12779- 4493 Dec, Left knee pain M25.562 [facility] [id number] [place] [address] 307408- 3278 Dec, Left knee pain M25.562 [facility] [id number] [place] [address] 416712- 2492 Dec, Fibromyalgia M79.7 ; Hypertension I10 and Arthritis M19.90 [facility] [id number] [place] [address] 27949- 6291 Dec, [facility] [id number] [place] [address] 27009- 2277 Dec, [facility] [id number] [place] [address] 53321- 7661 Dec, [facility] [id number] [place] [address] 09573- 5262 Dec, [facility] [id number] [place] [address] 98047- 6436 Nov, [facility] [id number] [place] [address] 13509- 0948 Nov, [facility] [id number] [place] [address] 20377- 7007 Nov, [facility] [id number] [place] [address] 88049- 2154 Nov, Hypertension I10 [facility] [id number] [place] [address] 50998- 4176 Oct, [facility] [id number] [place] [address] 86245- 0916 Oct, [facility] [id number] [place] [address] 48977- 3841 Oct, [facility] [address] [id number], [place] [address]- 4365 Oct, [facility] [place] [facility] [address] [facility] [id number] 5897 Oct, [facility] [place] [facility] [address] [id number], [place] [address]- 2657 Sep, [facility] [place] [facility] [address] [facility] [id number], [place] [address]- 9991 Sep, [facility] [address] [facility] [id number] [place] [address] 25622- 4071 Sep, Hip pain associated with recalled total hip arthroplasty hardware 996.77 [facility] [address] [facility] [id number], [place] [address]- 2430 Sep, [facility] [id number], [place] [address]- 2891 Sep, [facility] [id number], [place] [address]- 1445 Sep, [facility] [place] [facility] [id number], [place] [address]- 2917 Aug, [facility] [place] [facility] [id number], [place] [address]- 1938 Jul, [facility] [place] [facility] [address] [facility] [id number], [place] [address]- 2044 June, [facility] [place] [facility] [address] [facility] [id number], [place] [address]- 3357 June, [facility] [place] [facility] [address] [facility] [id number], [place] [address]- 4049 June, [facility] [place] [facility] [address] [facility] [id number] 8160 June, [facility] [place] [facility] [address] [facility] [id number], [place] [address]- 3279 June, [facility] [place] [facility] [address] [id number] [place] [address]- 1179 June, [facility] [place] [facility] [address] [id number] [place] [address]- 1676 May, [facility] [place] [facility] [address] [id number] [place] [address]- 9592 May, [facility] [place] [facility] [address] [id number] [place] [address]- 8183 May, [facility] [place] [facility] [address] [id number] [place] [address]- 2701 Apr, [facility] [place] [facility] [address] [id number] [place] [address]- 8746 Apr, [facility] [place] [facility] [address] [id number] [place] [address]- 7526 Apr, [facility] [place] [facility] [address] [id number] [place] [address]- 9081 Apr, [facility] [place] [facility] [address] [id number] [place] [address]- 4955 Apr, [facility] [place] [facility] [address] [id number] [place] [address]- 8066 Apr, [facility] [place] [facility] [address] [id number] [place] [address]- 5781 Apr, [facility] [place] [facility] [address] [id number], [place] [address]- 9672 Apr, [facility] [place] [facility] [address] [id number] [place] [address]- 7756 10 Apr, 2014 [facility] [place] [facility] [address] [id number] [place] [address]- 6446 05 Apr, 2014 [facility] [place] [facility] [address] [id number] [place] [address]- 1026 Apr, [facility] [place] [facility] [address] [id number] [place] [address]- 3073 Mar, 2014 [facility] [place] [facility] [address] [id number] [place] 8446 Mar, 2014 [facility] [place] [facility] [address] [id number] [place] [address]- 2546 16 Mar, 2014 [facility] [place] [facility] [address] [id number] [place] [address]- 3226 16 Mar, 2014 [facility] [place] [facility] [address] [id number] [place] [address]- 1033 Mar, 2014 [facility] [place] [facility] [address] [id number] [place] [address]- 4576 Mar, 2014 [facility] [place] [facility] [address] [facility] [id number] [place] [address]- 6623 Feb, [facility] [place] [facility] [address] [id number] [place] [address]- 9009 Feb, [facility] [place] [facility] [address] [id number] [place] [address]- 6597 Feb, [facility] [place] [facility] [address] [facility] [id number] [place] [address]- 2101 Feb, [facility] [place] [facility] [address] [facility] [id number] [place] [address]- 9979 Jan, [facility] [place] [facility] [address] [id number] [place] [address]- 8376 Jan, [facility] [place] [facility] [address] [id number] [place] [address]- 2541 Jan, [facility] [place] [facility] [address] [id number] [place] 5116 Jan, [facility] [place] [facility] [address] [id number] [place] [address]- 2546 Dec, [facility] [place] [facility] [address] [id number] [place] [address]- 9308 Dec, [facility] [place] [facility] [address] [id number] [place] [address]- 9874 Dec, [facility] [place] [facility] [address] [id number] [place] [address]- 4320 Dec, [facility] [place] [facility] [address] [id number] [place] [address]- 0942 Dec, [facility] [place] [facility] [address] [id number] [place] [address]- 7702 Dec, [facility] [place] [facility] [address] [id number] [place] [address]- 8923 Dec, [facility] [place] [facility] [address] [id number] [place] [address]- 4818 Dec, [facility] [place] [facility] [address] [id number] [place] [address]- 4552 Dec, [facility] [place] [facility] [address] [id number] [place] [address]- 9341 Dec, [facility] [place] [facility] [address] [id number] [place] [address]- 6222 Dec, [facility] [place] [facility] [address] [id number], [place] [address]- 5010 Nov, [facility] [place] [facility] [address] [id number], [place] [address]- 2427 Nov, [facility] [place] [facility] [address] [id number], [place] [address]- 9649 28 Nov, 2013 [facility] [place] [facility] [address] [id number] [place] [address]- 0425 17 Nov, 2013 [facility] [place] [facility] [address] [id number], [place] [address]- 6276 17 Nov, 2013 [facility] [place] [facility] [address] [id number], [place] [address]- 1239 15 Nov, 2013 [facility] [place] [facility] [address] [id number] [place] [address]- 4528 15 Nov, 2013 [facility] [place] [facility] [address] [id number] [place] [address]- 3648 15 Nov, 2013 [facility] [place] [facility] [address] [id number] [place] [address]- 4665 15 Nov, 2013 [facility] [place] [facility] [address] [id number] [place] [address]- 5975 14 Nov, 2013 [facility] [place] [facility] [address] [id number] [place] [address]- 3969 14 Nov, 2013 [facility] [place] [facility] [address] [id number] [place] [address]- 2416 14 Nov, 2013 [facility] [place] [facility] [address] [id number] [place] [address]- 1348 14 Nov, 2013 [facility] [place] [facility] [address] [id number] [place] [address]- 0646 13 Nov, 2013 [facility] [place] [facility] [address] [id number] [place] [address]- 9144 13 Nov, 2013 [facility] [place] [facility] [address] [id number] [place] [address]- 1166 11 Nov, 2013 [facility] [place] [facility] [address] [id number] [place] [address]- 7558 11 Nov, 2013 [facility] [place] [facility] [address] [id number] [place] [address]- 9417 07 Nov, 2013 [facility] [place] [facility] [address] [id number], [place] [address]- 3746 07 Nov, 2013 [facility] [place] [facility] [address] [id number] [place] [address]- 9071 07 Nov, 2013 [facility] [place] [facility] [address] [id number] [place] [address]- 4864 07 Nov, 2013 [facility] [place] [facility] [address] [id number], [place] [address]- 9356 30 Oct, 2013 [facility] [place] [facility] [address] [id number] [place] [address]- 9981 30 Oct, 2013 [facility] [place] [facility] [address] [id number] [place] [address]- 5680 26 Oct, 2013 [facility] [place] [facility] [address] [id number] [place] [address]- 1069 26 Oct, 2013 [facility] [place] [facility] [address] [id number] [place] [address]- 9548 22 Oct, 2013 [facility] [place] [facility] [address] [id number] [place] [address]- 3108 22 Oct, 2013 [facility] [place] [facility] [address] [id number] [place] [address]- 7395 18 Oct, 2013 [facility] [place] [facility] [address] [id number] [place] [address]- 8267 18 Oct, 2013 [facility] [place] [facility] [address] [id number] [place] [address]- 0588 18 Oct, 2013 [facility] [place] [facility] [address] [id number] [place] [address]- 5203 18 Oct, 2013 [facility] [place] [facility] [address] [id number] [place] [address]- 7684 12 Oct, 2013 [facility] [place] [facility] [address] [id number] [place] [address]- 6917 Oct, 2013 [facility] [place] [facility] [address] [id number] [place] [address]- 2541 Oct, 2013 [facility] [place] [facility] [address] [id number] [place] [address]- 2545 Oct, [facility] [place] [facility] [address] [id number] [place] [address]- 7206 Sep, [facility] [place] [facility] [address] [id number] [place] [address]- 2133 Sep, [facility] [place] [facility] [address] [id number] [place] [address]- 9240 Sep, [facility] [place] [facility] [address] [id number] [place] [address]- 7614 Sep, [facility] [place] [facility] [address] [id number] [place] [address]- 0040 Sep, [facility] [place] [facility] [address] [id number] [place] [address]- 3725 Sep, [facility] [place] [facility] [address] [id number] [place] [address]- 0379 Sep, [facility] [place] [facility] [address] [id number] [place] [address]- 5906 Sep, [facility] [place] [facility] [address] [id number] [place] [address]- 5779 Sep, [facility] [place] [facility] [address] [id number] [place] [address]- 7763 Sep, [facility] [place] [facility] [address] [id number] [place] [address]- 9061 Sep, [facility] [place] [facility] [address] [id number] [place] [address]- 2178 Sep, [facility] [place] [facility] [address] [id number] [place] [address]- 7820 Sep, [facility] [place] [facility] [address] [id number] [place] [address]- 6031 Sep, [facility] [place] [facility] [address] [id number] [place] [address]- 4548 Sep, [facility] [place] [facility] [address] [id number] [place] [address]- 3276 Sep, [facility] [place] [facility] [address] [id number] [place] [address]- 1924 Sep, [facility] [place] [facility] [address] [id number] [place] [address]- 4129 Sep, [facility] [place] [facility] [address] [id number] [place] [address]- 5895 Aug, [facility] [address] [id number] [place] [address]- 1293 Aug, [facility] [place] [facility] [address] [id number] [place] [address]- 8979 Aug, [facility] [place] [facility] [address] [id number] [place] [address]- 2916 Aug, [facility] [place] [facility] [address] [id number] [place] [address]- 3242 Aug, [facility] [address] [id number] [place] [address]- 4645 Aug, [facility] [address] [id number] [place] [address]- 5297 Jul, [facility] [place] [facility] [address] [id number] [place] [address]- 7368 Jul, [facility] [address] [id number] [place] [address]- 2131 Jul, [facility] [place] [facility] [address] [id number] [place] [address]- 6438 Jul, [facility] [address] [id number] [place] [address]- 8203 June, [facility] [place] [facility] [address] [id number] [place] [address]- 7284 June, [facility] [place] [facility] [address] [id number] [place] [address]- 3215 June, [facility] [place] [facility] [address] [id number] [place] [address]- 4117 June, [facility] [place] [facility] [address] [id number] [place] [address]- 8577 June, [facility] [place] [facility] [address] [id number] [place] [address]- 8883 June, [facility] [place] [facility] [address] [id number] [place] [address]- 5521 June, [facility] [place] [facility] [address] [id number] [place] [address]- 9847 May, [facility] [place] [facility] [address] [id number] [place] [address]- 9652 May, [facility] [place] [facility] [address] [id number] [place] [address]- 7232 May, [facility] [place] [facility] [address] [id number] [place] [address]- 5194 May, [facility] [place] [facility] [address] [id number] [place] [address]- 5480 May, [facility] [place] [facility] [address] [id number] [place] [address]- 0296 May, [facility] [place] [facility] [address] [id number] [place] [address]- 9693 Apr, [facility] [place] [facility] [address] [id number] [place] [address]- 7262 31 Apr, 2013 [facility] [place] [facility] [address] [id number] [place] [address] Apr, [facility] [place] [facility] [address] [id number] [place] [address] Apr, [facility] [place] [facility] [address] [id number] [place] [address] 14 Apr, 2013 [facility] [place] [facility] [address] [id number] [place] [address] 14 Apr, 2013 [facility] [place] [facility] [address] [id number] [place] [address] Apr, [facility] [place] [facility] [address] [id number] [place] [address] Apr, [facility] [place] [facility] [address] [id number] [place] [address] Apr, [facility] [place] [facility] [address] [id number] [place] [address] Apr, [facility] [place] [facility] [address] [id number] [place] [address] Apr, [facility] [place] [facility] [address] [id number] [place] [address]- [address] Apr, [facility] [place] [facility] [address] [id number] [place] [address]237 Apr, [facility] [place] [facility] [address] [id number] [place] [address] Apr, [facility] [place] [facility] [address] [id number] [place] [address] Mar, [facility] [place] [facility] [address] [id number] [place] [address] Mar, [facility] [place] [facility] [address] [id number] [place] [address] Mar, [facility] [place] [facility] [address] [id number] [place] [address]- [address] Feb, [facility] [place] [facility] [address] [id number] [place] [address] Feb, [facility] [place] [facility] [address] [id number] [place] [address] Feb, [facility] [place] [facility] [address] [id number] [place] [address]- [address] Feb, [facility] [place] [facility] [address] [id number] [place] [address]- [address] Feb, [facility] [place] [facility] [address] [id number] [place] [address]- [address] Feb, [facility] [place] [facility] [address] [id number] [place] [address]- [address]958 Feb, [facility] [place] [facility] [address] [id number] [place] [address]- 7764 Feb, [facility] [address] [id number] [place] [address] Feb, [facility] [place] [facility] [address] [id number] [place] [address]- 116[address] Feb, [facility] [address] [id number] [place] [address] 3969 Jan, [facility] [address] [id number] [place] [address] Jan, [facility] [place] [facility] [address] [id number] [place] [address] Jan, [facility] [address] [id number] [place] [address] Jan, [facility] [address] [id number] [place] [address]69 Jan, [facility] [address] [id number] [place] [address]- [address] Jan, [facility] [address] [id number] [place] [address]- [address] Jan, [facility] [place] [facility] [address] [id number] [place] [address] Jan, [facility] [place] [facility] [address] [id number] [place] [address] Jan, [facility] [place] [facility] [address] [id number] [place] [address] Jan, [facility] [place] [facility] [address] [id number] [place] [address]- [address] Jan, [facility] [place] [facility] [address] [id number] [place] [address] Jan, [facility] [place] [facility] [address] [id number] [place] [address]- [address] Jan, [facility] [place] [facility] [address] [id number] [place] [address] Jan, [facility] [place] [facility] [address] [id number] [place] [address]- 2010 Jan, [facility] [place] [facility] [address] [facility] [id number] [place] [address] Jan, [facility] [place] [facility] [address] [id number] [place] [address]- [address] Jan, [facility] [place] [facility] [address] [id number] [place] [address]- [address] Jan, [facility] [place] [facility] [address] [id number] [place] [address]- [address]593 Jan, [facility] [place] [facility] [address] [id number] [place] [address]- [address]326 Jan, [facility] [place] [facility] [address] [id number] [place] [address]- [address] Jan, [facility] [place] [facility] [address] [id number] [place] [address]- 7499 Dec, [facility] [place] [facility] [address] [id number] [place] [address]- 8022 Dec, [facility] [place] [facility] [address] [id number], [place] [address]- [address] Dec, [facility] [place] [facility] [address] [id number], [place] [address]- [address] Dec, [facility] [place] [facility] [address] [id number] [place] [address]- [address]487 Dec, [facility] [place] [facility] [address] [id number], [place] [address] Dec, [facility] [place] [facility] [address] [facility] [id number], [place] [address]- [address] Dec, [facility] [place] [facility] [address] [id number] [place] [address]- [address]481 Dec, [facility] [address] [id number] [place] [address]- 1403 Dec, [facility] [place] [facility] [address] [id number] [place] [address]- 1824 Dec, [facility] [place] [facility] [address] [id number] [place] [address]- 0905 Nov, [facility] [place] [facility] [address] [id number] [place] [address]- 9771 Nov, [facility] [place] [facility] [address] [id number] [place] [address]- 9210 Nov, [facility] [place] [facility] [address] [id number] [place] [address]- 9859 Nov, [facility] [place] [facility] [address] [id number] [place] [address]- [address]40 Nov, [facility] [place] [facility] [address] [id number] [place] [address] Nov, [facility] [place] [facility] [address] [id number] [place] [address] Nov, [facility] [place] [facility] [address] [id number] [place] [address] Nov, [facility] [place] [facility] [address] [id number] [place] [address]- 9821 10 Nov, 2012 [facility] [place] [facility] [address] [id number] [place] [address]- [address]457 Nov, [facility] [place] [facility] [address] [id number] [place] [address]- 4968 Oct, [facility] [place] [facility] [address] [id number] [place] [address] 68[address] Oct, [facility] [place] [facility] [address] [id number] [place] [address]- 5468 Oct, [facility] [place] [facility] [address] [id number] [place] [address]- 8726 Oct, [facility] [place] [facility] [address] [id number] [place] [address] 9030 Oct, [facility] [address] [id number] [place] [address] 2543 Sep, [facility] [place] [facility] [address] [id number] [place] [address] 2549 Sep, [facility] [address] [id number] [place] [address]- 1182 Aug, [facility] [place] [facility] [address] [id number] [place] [address]- 9444 Aug, [facility] [address] [id number] [place] [address]- 1563 Aug, [facility] [address] [id number] [place] [address]- 1130 Aug, [facility] [address] [id number] [place] [address]- 9629 Aug, [facility] [address] [id number] [place] [address]- 1281 Aug, [facility] [place] [facility] [address] [id number] [place] [address]- 2545 Aug, [facility] [place] [facility] [address] [id number] [place] [address]- 2907 Jul, [facility] [place] [facility] [address] [id number] [place] [address]- 9580 Jul, [facility] [place] [facility] [address] [id number] [place] [address]- 7415 June, [facility] [place] [facility] [address] [id number] [place] [address]- 8078 June, [facility] [place] [facility] [address] [id number] [place] [address]- 6927 June, [facility] [address] [id number] [place] [address]- 4200 June, [facility] [address] [id number] [place] [address]- 0329 June, [facility] [address] [id number] [place] [address]- 6658 June, [facility] [address] [id number] [place] [address]- 2706 June, [facility] [address] [id number] [place] [address]- 9727 June, [facility] [address] [id number] [place] [address] June, [facility] [address] [id number] [place] [address] 1940 June, [facility] [address] [id number] [place] [address]- 0551 June, [facility] [address] [id number] [place] [address]- 0232 May, [facility] [address] [id number] [place] [address]- 1001 May, [facility] [address] [id number] [place] [address]- 6192 May, [facility] [place] [facility] [address] [id number] [place] [address]- 9042 May, [facility] [place] [facility] [address] [id number] [place] [address]- 2995 Apr, [facility] [place] [facility] [address] [id number] [place] [address] Apr, [facility] [place] [facility] [address] [id number] [place] [address]- 1520 Apr, [facility] [place] [facility] [address] [id number] [place] [address]- 9756 Mar, [facility] [address] [id number] [place] [address]- 0666 Mar, [facility] [place] [facility] [address] [id number] [place] [address]- 5606 29 Feb, 2012 [facility] [address] [id number] [place] [address]- 0862 Feb, [facility] [address] [id number] [place] [address]- 5226 Feb, [facility] [address] [id number] [place] [address]- 9859 Feb, [facility] [address] [id number] [place] [address]- 1266 16 Feb, 2012 [facility] [address] [id number] [place] [address]- 3677 Feb, [facility] [address] [id number] [place] [address]- 5596 Feb, [facility] [address] [id number] [place] [address]- 1173 31 Jan, 2012 [facility] [address] [id number] [place] [address]- 3525 31 Jan, 2012 [facility] [address] [id number] [place] [address]- 4129 28 Jan, 2012 [facility] [address] [id number] [place] [address]- 8036 17 Jan, 2012 [facility] [place] [facility] [address] [id number] [place] [address]- 6456 17 Jan, 2012 [facility] [place] [facility] [address] [id number] [place] [address]- 6406 Jan, [facility] [place] [facility] [address] [id number] [place] [address] 05[address] Jan, [facility] [place] [facility] [address] [id number] [place] [address]- 2877 Jan, [facility] [place] [facility] [address] [id number] [place] [address]- 0520 Jan, [facility] [place] [facility] [address] [facility] [id number] [place] [address]- 0538 Jan, [facility] [place] [facility] [address] [id number] [place] [address]- 3263 Jan, [facility] [place] [facility] [address] [id number] [place] [address]- 3440 Dec, [facility] [place] [facility] [address] [id number] [place] [address]- 3940 Dec, [facility] [place] [facility] [address] [id number] [place] [address]- 5577 Dec, [facility] [place] [facility] [address] [id number] [place] [address]- 5383 Dec, [facility] [place] [facility] [address] [id number] [place] [address]- 4736 Nov, [facility] [place] [facility] [address] [id number] [place] [address]- 2753 Nov, [facility] [place] [facility] [address] [id number], [place] [address]- 1836 Nov, [facility] [place] [facility] [address] [id number], [place] [address]- 3706 27 Oct, 2011 [facility] [place] [facility] [address] [id number] [place] [address]- 7381 24 Oct, 2011 [facility] [place] [facility] [address] [id number], [place] [address]- 6986 21 Oct, 2011 [facility] [place] [facility] [address] [id number] [place] [address]- 3820 10 Oct, 2011 [facility] [place] [facility] [address] [id number] [place] [address]- 7014 07 Oct, 2011 [facility] [place] [facility] [address] [id number] [place] [address]- 9756 04 Oct, 2011 [facility] [place] [facility] [address] [id number] [place] [address]- 4606 04 Oct, 2011 [facility] [place] [facility] [address] [id number] [place] [address]- 5336 29 Sep, 2011 [facility] [place] [facility] [address] [id number] [place] [address] 2546 Sep, [facility] [place] [facility] [address] [id number] [place] [address]- 2889 Sep, [facility] [place] [facility] [address] [id number] [place] [address]- 1532 Sep, [facility] [place] [facility] [address] [id number] [place] [address]- 3136 Sep, [facility] [place] [facility] [address] [id number] [place] [address]- 1223 Aug, [facility] [place] [facility] [address] [id number] [place] [address]- 6380 Aug, [facility] [place] [facility] [address] [id number] [place] [address]- 5124 Aug, [facility] [place] [facility] [address] [id number] [place] [address]- 9486 16 Aug, 2011 [facility] [place] [facility] [address] [id number] [place] [address] 2544 13 Aug, 2011 [facility] [place] [facility] [address] [id number] [place] [address]- 6462 Aug, [facility] [place] [facility] [address] [id number] [place] [address]- 0636 Aug, [facility] [place] [facility] [address] [id number] [place] [address]- 7182 Jul, [facility] [place] [facility] [address] [id number] [place] [address]- 5824 Jul, [facility] [place] [facility] [address] [id number] [place] [address]- 3351 Jul, [facility] [place] [facility] [address] [id number] [place] [address]- 9816 Jul, [facility] [place] [facility] [address] [id number] [place] [address]- 1380 Jul, [facility] [place] [facility] [address] [id number] [place] [address]- 2817 Jul, [facility] [place] [facility] [address] [id number] [place] [address]- 1943 Jul, [facility] [place] [facility] [address] [id number] [place] [address]- 6312 Jul, [facility] [place] [facility] [address] [id number] [place] [address]- 2425 Jul, [facility] [place] [facility] [address] [id number] [place] [address]- 5896 June, [facility] [place] [facility] [address] [id number] [place] [address]- 0022 June, [facility] [place] [facility] [address] [id number] [place] [address]- 5624 June, [facility] [place] [facility] [address] [id number] [place] [address]- 7496 June, [facility] [place] [facility] [address] [id number] [place] [address]- 3424 June, [facility] [place] [facility] [address] [id number] [place] [address]- 2408 June, [facility] [place] [facility] [address] [id number] [place] [address]- 3619 June, [facility] [place] [facility] [address] [id number] [place] [address]- 2546 June, [facility] [place] [facility] [address] [id number] [place] [address]- 5406 May, [facility] [place] [facility] [address] [id number] [place] [address]- 8416 May, [facility] [place] [facility] [address] [id number] [place] [address]- 2416 May, [facility] [place] [facility] [address] [id number] [place] [address]- 7752 May, [facility] [place] [facility] [address] [id number] [place] [address]- 4155 May, [facility] [place] [facility] [address] [id number] [place] [address] May, [facility] [place] [facility] [address] [id number] [place] [address]- 9658 May, [facility] [place] [facility] [address] [id number] [place] [address]- 1071 Apr, [facility] [place] [facility] [address] [id number] [place] [address]- 4654 Apr, [facility] [place] [facility] [address] [id number] [place] [address]- 5864 Apr, [facility] [place] [facility] [address] [id number] [place] [address]- 2626 Apr, [facility] [place] [facility] [address] [id number] [place] [address]- 9175 Apr, [facility] [place] [facility] [address] [id number] [place] [address]- 1889 Apr, [facility] [place] [facility] [address] [id number] [place] [address]- 5944 Apr, [facility] [place] [facility] [address] [id number] [place] [address]- 8215 Mar, [facility] [place] [facility] [address] [id number] [place] [address]- 9840 20 Mar, 2011 [facility] [address] [id number] [place] [address]- 6056 14 Mar, 2011 [facility] [place] [facility] [address] [id number] [place] [address] 2546 13 Mar, 2011 [facility] [place] [facility] [address] [id number] [place] [address] 2546 09 Mar, 2011 [facility] [place] [facility] [address] [id number] [place] [address] 2545 Mar, [facility] [place] [facility] [address] [id number] [place] [address]- 4376 Mar, [facility] [address] [id number] [place] [address]- 6224 Feb, [facility] [address] [id number] [place] [address]- 5244 Feb, [facility] [place] [facility] [address] [id number] [place] [address]- 0550 Feb, [facility] [address] [id number] [place] [address]- 2888 Feb, [facility] [place] [facility] [address] [id number] [place] [address]- 9295 Feb, [facility] [place] [facility] [address] [id number] [place] [address]- 3313 Feb, [facility] [place] [facility] [address] [id number] [place] [address]- 8375 Feb, [facility] [place] [facility] [address] [id number] [place] [address]- 3956 Feb, [facility] [place] [facility] [address] [id number] [place] [address]- 7575 Feb, [facility] [place] [facility] [address] [id number] [place] [address]- 6696 Feb, [facility] [place] [facility] [address] [id number] [place] [address]- 2664 Jan, [facility] [place] [facility] [address] [id number] [place] 8986 Jan, [facility] [place] [facility] [address] [id number] [place] [address]- 5146 Jan, [facility] [place] [facility] [address] [id number] [place] [address]- 2628 Jan, [facility] [place] [facility] [address] [id number] [place] [address]- 6151 Jan, [facility] [place] [facility] [address] [id number] [place] [address]- 8786 Jan, [facility] [place] [facility] [address] [id number] [place] [address]- 5156 Jan, [facility] [place] [facility] [address] [id number] [place] [address]- 1211 Jan, [facility] [place] [facility] [address] [id number] [place] [address]- 3845 Jan, [facility] [place] [facility] [address] [id number] [place] [address]- 7774 Jan, [facility] [place] [facility] [address] [id number] [place] [address]- 4397 Jan, [facility] [place] [facility] [address] [id number], [place] [address]- 4980 Dec, [facility] [place] [facility] [address] [id number] [place] [address]- 9232 Dec, [facility] [place] [facility] [address] [id number] [place] [address]- 6923 Dec, [facility] [place] [facility] [address] [id number] [place] [address]- 2523 16 Dec, 2010 [facility] [place] [facility] [address] [id number] [place] [address]- 3478 14 Dec, 2010 [facility] [address] [id number] [place] [address]- 7280 09 Dec, 2010 [facility] [place] [facility] [address] [id number] [place] [address]- 0451 08 Dec, 2010 [facility] [address] [id number] [place] [address]- 4360 07 Dec, 2010 [facility] [place] [facility] [address] [id number] [place] [address]- 5087 Dec, [facility] [address] [id number] [place] [address]10 Nov, [facility] [place] [facility] [address] [id number] [place] [address]- 3437 Nov, [facility] [place] [facility] [address] [id number] [place] [address]- 5442 Nov, [facility] [place] [facility] [address] [id number] [place] [address]- 2174 24 Nov, 2010 [facility] [place] [facility] [address] [id number] [place] [address]- 0950 24 Nov, 2010 [facility] [address] [id number] [place] [address]- 8981 Nov, [facility] [place] [facility] [address] [id number] [place] [address]- 7540 Aug, [facility] [place] [facility] [address] [id number] [place] [address]- 1622 14 Feb, 2010 [facility] [place] [facility] [address] [id number] [place] [address]- 6129 14 Jan, 2010 [facility] [place] [facility] [address] [id number] [place] [address] 2541 Jan, [facility] [place] [facility] [address] [id number] [place] [address]- 0919 Jan, [facility] [address] [id number], [place] [address]- 3614 Jan, [facility] [address], [place] [address]- 9736 Jan, [facility] [address], [place] [address]- 8129 Dec, [facility] [address], [place] [address]- 0192 Dec, [facility] [address], [place] [address]- 8912 Dec, [facility] [id number] [place] [address]- 4493 Dec, [facility] [id number] [place] [address] 05[address]- 3983 Nov, [facility] [id number], [place] [address]- 6152 Nov, [facility] [id number], [place] [address]- 4180 Nov, IMMUNIZATIONS No Known Immunizations SOCIAL HISTORY Never Assessed REASON FOR VISIT 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)-Jennifer RUCKER, PDM, PHQ2, AUDIT C, updated contract PLAN OF CARE Activity Details Follow Up 3 Months Reason: VITAL SIGNS Height 68 in 2017-05-13 Weight 212.5 lbs 2017-05-13 Temperature 97.8 degrees Fahrenheit 2017-05-13 Heart Rate 84 bpm 2017-05-13 Respiratory Rate 20 2017-05-13 BMI 32.31 kg/m2 2017-05-13 Blood pressure systolic 116 mmHg 2017-05-13 Blood pressure diastolic 78 mmHg 2017-05-13 MEDICATIONS Medication Instructions Dosage Frequency Start Date End Date Duration Status Fluoxetine HCl 40 mg Orally Once a day 2 capsule in the morning 24h 30 Active Fentanyl 50 MCG/HR Transdermal 72hrs 1 patch to skin Mar, 30 days Active Lyrica 150 MG Orally 3 times a day 1 capsule 8h 28 days Active Abilify 2 MG Orally Once a day 2 tablets 24h 30 days Active Furosemide 20 MG Orally Once a day ONE TABLET 24h 30 Active Nabumetone 500 MG Orally Twice a day 1 tablet 12h 30 Active Promethazine HCl 25 MG Orally every 12 hrs 1 tablet as needed 12h 30 Active Aspirin 81 MG Orally Once a day 1 tablet 24h 30 Active Pantoprazole Sodium 40 mg Orally Once a day 1 tablet 24h 30 days Active Tizanidine HCl 4 MG Orally Three times a day 1 tablet as needed 8h May, Active Sumatriptan Succinate 100 mg Orally Once a day 1 tablet as needed one time 24h 30 Active Clonidine HCl 0.1 MG Orally twice a day 1 tablet 12h 30 Active Klonopin 1 MG Orally 3 times a day 1 tablet 8h 05 days Active RESULTS No Results PROCEDURES Procedure Date Ordered Result Body Site DRUG SCREEN AMPHETAMINES 02/11May 13, 2017 DRUG TEST PRSMV CHEM ANLYZR May 13, 2017 INSTRUCTIONS MEDICATIONS ADMINISTERED No Known Medications [...]
[2018-01-13] MEDS ORDERED: fentaNYL PATCH 50 MCG (DURAGESIC) TD SCH (21:00)
[2018-01-13] MEDS ORDERED: SUMAtriptan 50 MG (IMITREX) TAB PO PRN (21:00)
[2018-01-13] MEDS ORDERED: cloNIDine 0.1 MG (CATAPRES) TAB PO SCH (21:00)
--- OUTSIDE RECORDS SUMMARY | 2018-01-13 21:00 | XMS REPORT ---
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 694670160 Problem Other chronic pain G89.29 Active 36552866 Problem Obesity (BMI 30.0-34.9) E66.9 Active 121613629796650 Problem Other obesity due to excess calories E66.09 Active 865364142 Problem Venous insufficiency (chronic) (peripheral) I87.2 Active 414138889 Problem Other psychoactive substance dependence, 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 Active 4155681 Problem Body mass index (BMI) of 34.0-34.9 in adult Z68.34 Active 623024958 Problem Gastroesophageal reflux disease, esophagitis presence not specified K21.9 Active 208419628 Problem Combined drug dependence excluding opioids, 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 Active 355409727 Problem Hypertension I10 Active 47790859 Problem Arthritis M19.90 Active 8131031 Problem Other disorder of impulse control F63.89 Active 27977652 Problem Anxiety F41.9 Active 29585739 Problem Unspecified episodic mood disorder F39 Active 58976739 Problem Left hip pain M25.552 Active 57182033 ALLERGIES Substance Reaction Event Type Date Status Propranolol HCl chest pain, headache Drug Allergy May, Active Bactrim unknown Drug Allergy May, Active Penicillins unknown Non Drug Allergy May, Active ENCOUNTERS Encounter Location Date Diagnosis [facility] [address] [id number] [id number] Aug, [facility] [address] [facility] [id number] [place] [address] 14460- 5758 Aug, Arthritis M19.90 [facility] [id number] [place] [address] 57493- 5475 Aug, [facility] [id number] [place] [address] 93348- 4299 Aug, Obesity (BMI 30.0-34.9) E66.9 ; Unspecified episodic mood disorder F39 and Hypertension I10 [facility] [id number] [place] [address] 29587- 3892 Aug, Unspecified episodic mood disorder F39 [facility] [id number] [place] [address] 59581- 4868 Aug, [facility] [id number] [place] [address] 34036- 7943 Jul, Unspecified episodic mood disorder F39 [facility] [id number] [place] [address] 04502- 2677 Jul, [facility] [id number] [place] [address] 99356- 3501 Jul, Arthritis M19.90 [facility] [id number] [place] [address] 34552- 6166 Jul, Left hip pain M25.552 ; Hypertension I10 ; Other obesity due to excess calories E66.09 and Body mass index (BMI) of 34.0-34.9 in adult Z68.34 [facility] [id number] [place] [address] 10402- 3520 Jul, Unspecified episodic mood disorder F39 [facility] [id number] [place] [address] 11211- 8644 June, Gastroesophageal reflux disease, esophagitis presence not specified K21.9 [facility] [id number] [place] [address] 80948- 9639 June, [facility] [id number] [place] [address] 93204- 8398 June, [facility] [address] [address] 2772 June, Arthritis M19.90 [facility] [id number] [place] [address] 29770- 0364 June, [facility] [id number] [place] [address] 06377- 3054 June, [facility] [id number] [place] [address] 99869- 3716 June, Unspecified episodic mood disorder F39 [facility] [id number] [place] [address] 26347- 7255 May, Unspecified episodic mood disorder F39 [facility] [id number] [place] [address] 14188- 4735 May, [facility] [id number] [place] [address] 39277- 8500 May, Arthritis M19.90 [facility] [id number] [place] [address] 23984 -6509 May, Dysuria R30.0 ; Abscess L02.91 and Acute cystitis without hematuria N30.00 [facility] [address] [address] 2435 May, Other disorder of impulse control F63.89 ; Unspecified episodic mood disorder F39 ; Combined drug dependence excluding opioids, 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 ; Anxiety F41.9 and Other psychoactive substance dependence, 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 [facility] [address] [address] 5[address] May, [facility] [id number] [place] [address] 97677- 6239 May, Other disorder of impulse control F63.89 ; Unspecified episodic mood disorder F39 ; Combined drug dependence excluding opioids, 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 ; Other psychoactive substance dependence, 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 and Anxiety F41.9 [facility] [id number] [place] [address] 92195- 6468 May, Other chronic pain G89.29 ; Left hip pain M25.552 ; Hypertension I10 ; 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, 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 and Unspecified episodic mood disorder F39 [facility] [id number] [place] [address] 08485- 7183 28 Apr, 2017 [facility] [id number] [place] [address] 55721 -5078 Apr, Neck pain M54.2 ; Left hip pain M25.552 and Fall, initial encounter W19.XXXA [facility] [address] 24091- 1520 Apr, Unspecified episodic mood disorder F39 ; Combined drug dependence excluding opioids, 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 ; Anxiety F41.9 ; Other psychoactive substance dependence, 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 and Other disorder of impulse control F63.89 [facility] [id number] [place] [address] 64601- 9222 Apr, [facility] [id number] [place] [address] 46066- 4207 Apr, Arthritis M19.90 and Unspecified episodic mood disorder F39 [facility] [id number] [place] [address] 45693- 5519 Apr, Unspecified episodic mood disorder F39 [facility] [id number] [place] [address] 91816- 9383 Apr, [facility] [id number] [place] [address] 57855- 2947 08 Apr, 2017 [facility] [id number] [place] [address] 74022- 0028 07 Apr, 2017 Unspecified episodic mood disorder F39 ; Combined drug dependence excluding opioids, 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 ; Anxiety F41.9 ; Other psychoactive substance dependence, 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 and Other disorder of impulse control F63.89 [facility] [id number] [place] [address] 35953- 0416 Mar, Unspecified episodic mood disorder F39 [facility] [id number] [place] [address] 04027- 6526 Mar, Gastroesophageal reflux disease, esophagitis presence not specified K21.9 [facility] [id number] [place] [address] 29801- 0832 Mar, Arthritis M19.90 and Unspecified episodic mood disorder F39 [facility] [id number] [place] [address] 06492- 0766 Feb, [facility] [id number] [place] [address] 01424- 0096 Feb, [facility] [id number] [place] [address] 98709- 9006 Feb, [facility] [id number] [place] [address] 29286 2545 Feb, Arthritis M19.90 [facility] [id number] [place] [address] 36020 2545 Feb, Non-pressure chronic ulcer of right calf, 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 ; Unspecified episodic mood disorder F39 and Left hip pain M25.552 [facility] [id number] [place] [address] 47737 2546 Feb, [facility] [id number] [place] [address] 11474 2546 Feb, [facility] [id number] [place] [address] 59711 2546 Jan, Arthritis M19.90 [facility] [id number] [place] [address] 51069 2546 Jan, Left hip pain M25.552 and Non-pressure chronic ulcer of right calf, 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 [facility] [address] [address]- 7814 Jan, Chronic hepatitis C without hepatic coma B18.2 [facility] [id number] [place] [address] 80586- 6601 Jan, Encounter for immunization Z23 ; Venous insufficiency ( chronic) (peripheral) I87.2 ; Non-pressure chronic ulcer of unspecified calf limited to breakdown of skin L97.201 and Gastroesophageal reflux disease, esophagitis presence not specified K21.9 [facility] [id number] [place] [address] 66597- 8407 Jan, [facility] [id number] [place] [address] 66465- 2307 Jan, Chronic hepatitis C without hepatic coma B18.2 and Encounter for immunization Z23 [facility] [id number] [place] [address] 12362- 5661 Jan, Arthritis M19.90 [facility] [id number] [place] [address] 74628- 6994 Jan, [facility] [id number] [place] [address] 65710- 3611 Dec, [facility] [id number] [place] [address] 76894- 5928 Dec, Unspecified episodic mood disorder F39 [facility] [id number] [place] [address] 90101- 4447 Dec, Arthritis M19.90 [facility] [id number] [place] [address] 87249- 9524 Dec, Arthritis M19.90 [facility] [id number] [place] [address] 55008- 6109 Nov, [facility] [id number] [place] [address] 21389- 4210 Nov, [facility] [address] [place] [address]- 9519 Nov, Other psychoactive substance dependence, 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 ; 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, 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 and Chronic hepatitis C without hepatic coma B18.2 [facility] [id number] [place] [address] 67759- 2541 Nov, Arthritis M19.90 [facility] [id number] [place] [address] 90255 -8801 Oct, Partial thickness burn of abdomen, initial encounter T21.22XA [facility] [id number] [place] [address] 22820- 9299 Oct, [facility] [id number] [place] [address] 18059- 0433 Sep, Arthritis M19.90 [facility] [id number] [place] [address] 40784- 2982 Sep, [facility] [id number] [place] [address] 78354- 9063 Sep, [facility] [id number] [place] [address] 30967- 7725 Sep, Unspecified episodic mood disorder F39 ; Chronic hepatitis C without hepatic coma B18.2 and Left hip pain M25.552 [facility] [id number] [place] [address] 83693- 2904 Sep, Arthritis M19.90 and Left hip pain M25.552 [facility] [id number] [place] [address] 16520- 7801 Aug, [facility] [id number] [place] [address] 57103- 6329 Aug, [facility] [id number] [place] [address] 79584- 5942 Aug, Chronic hepatitis C without hepatic coma B18.2 [facility] [address] [place] [address]- 9486 Aug, [facility] [id number] [place] [address] 18412- 7986 Aug, Chronic hepatitis C without hepatic coma B18.2 [facility] [id number] [place] [address] 66266- 2954 Aug, 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, 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 [facility] [id number] [place] [address] 79208- 2538 Aug, [facility] [id number] [place] [address] 40997- 1312 Aug, Chronic hepatitis C without hepatic coma B18.2 and Hypertension I10 [facility] [id number] [place] [address] 05953- 6505 Jul, [facility] [id number] [place] [address] 89837- 6847 June, [facility] [id number] [place] [address] 20692- 2494 Apr, Fibromyalgia M79.7 ; Left hip pain M25.552 and Decubitus ulcer of sacral region, stage 1 L89.151 [facility] [id number] [place] [address] 69141- 1494 Apr, [facility] [id number] [place] [address] 14073- 8412 Apr, [facility] [id number] [place] [address] 65590- 2455 Feb, [facility] [address] 78683- 6988 Dec, Anxiety F41.9 ; Combined drug dependence excluding opioids, 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 and Unspecified episodic mood disorder F39 [facility] [id number] [place] [address] 96597- 5519 Dec, [facility] [address] [address]- 1236 Nov, [facility] [id number] [place] [address] 68349- 6196 Nov, [facility] [id number] [place] [address] 08777- 3639 Nov, Other disorder of impulse control F63.89 and Anxiety F41.9 [facility] [id number] [place] [address] 45536- 1760 Oct, [facility] [id number] [place] [address] 64531 -9904 Oct, Open wound of left thigh, initial encounter S71.102A [facility] [id number] [place] [address] 57643- 5974 Oct, [facility] [id number] [place] [address] 27051- 3302 Sep, Unspecified episodic mood disorder F39 ; Other disorder of impulse control 312.39 ; Combined drug dependence excluding opioids, 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 and Anxiety F41.9 [facility] [id number] [place] [address] 10232- 5391 Sep, Other disorder of impulse control 312.39 ; Combined drug dependence excluding opioids, 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 ; Anxiety F41.9 and Unspecified episodic mood disorder F39 [facility] [id number] [place] [address] 97506- 4236 Sep, Other chronic pain G89.29 [facility] [id number] [place] [address] 12223- 4697 Sep, [facility] [id number] [place] [address] 29033- 6805 Sep, [facility] [id number] [place] [address] 40441- 0402 Aug, [facility] [id number] [address]- 1431 Aug, [facility] [id number] [place] [address] 83888- 8856 Aug, [facility] [id number] [place] [address] 45533- 4842 Jul, [facility] [id number] [place] [address] 34203- 9143 Jul, [facility] [id number] [place] [address] 52120- 4148 Jul, [facility] [id number] [place] [address] 99919- 7377 Jul, Arthritis M19.90 ; Chronic hepatitis C without hepatic coma B18.2 and Left hip pain M25.552 [facility] [id number] [place] [address] 27510- 2446 Jul, Left knee pain M25.562 [facility] [id number] [place] [address] 74327- 5708 Jul, Combined drug dependence excluding opioids, 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 ; Anxiety F41.9 ; Other disorder of impulse control 312.39 and Unspecified episodic mood disorder F39 [facility] [address], [place] [address]- 9993 Jul, Left knee pain M25.562 [facility] [id number] [place] [address] 40939- 5806 Jul, Left knee pain M25.562 and Left hip pain M25.552 [facility] [id number] [place] [address] 22914- 9885 Jul, [facility] [id number] [place] [address] 25672- 2320 June, [facility] [id number] [place] [address] 63554- 3535 June, Combinations of drug dependence excluding opioid type drug, unspecified abuse 304.80 ; Other disorder of impulse control 312.39 ; Unspecified episodic mood disorder F39 and Anxiety F41.9 [facility] [id number] [place] [address] 66801- 0964 June, Other fatigue R53.83 ; Headache R51 and Left knee pain M25.562 [facility] [id number] [place] [address] 78427- 4477 June, Unspecified episodic mood disorder F39 ; Combinations of drug dependence excluding opioid type drug, unspecified abuse 304.80 ; Other disorder of impulse control 312.39 and Anxiety F41.9 [facility] [id number] [place] [address] 57095- 1451 June, Anxiety F41.9 [facility] [id number] [place] [address] 22638- 4183 June, Pain in left knee M25.562 [facility] [id number] [place] [address] 18548- 3914 June, Anxiety F41.9 and Combinations of drug dependence excluding opioid type drug, unspecified abuse 304.80 [facility] [id number] [place] [address] 12619- 1645 June, Unspecified episodic mood disorder 296.90 ; Combinations of drug dependence excluding opioid type drug, unspecified abuse 304.80 and Other disorder of impulse control 312.39 [facility] [id number] [place] [address] 57938- 5912 June, Anxiety F41.9 and Unspecified episodic mood disorder 296.90 [facility] [id number] [place] [address] 38960- 5892 May, Arthritis M19.90 [facility] [id number] [place] [address] 55718- 9811 May, Arthritis M19.90 [facility] [id number] [place] [address] 94978- 6762 May, Anxiety F41.9 ; Combinations of drug dependence excluding opioid type drug, unspecified abuse 304.80 and Other disorder of impulse control 312.39 [facility] [address] [address]- 0798 18 May, 2015 Left knee pain M25.562 [facility] [id number] [place] [address] 82133- 6855 May, Arthritis M19.90 [facility] [id number] [place] [address] 12791- 6603 May, [facility] [id number] [place] [address] 25447- 6485 May, Anxiety F41.9 ; Unspecified episodic mood disorder 296.90 ; Combinations of drug dependence excluding opioid type drug, unspecified abuse 304.80 and Other disorder of impulse control 312.39 [facility] [id number] [place] [address] 43681- 0048 May, Left knee pain M25.562 [facility] [id number] [place] [address] 13596- 9403 May, Left knee pain M25.562 ; Combinations of drug dependence excluding opioid type drug, unspecified abuse 304.80 ; Other disorder of impulse control 312.39 ; Fibromyalgia M79.7 ; Hypertension I10 ; Unspecified episodic mood disorder 296.90 and Left hip pain M25.552 [facility] [id number] [place] [address] 91184- 1612 May, Unspecified episodic mood disorder 296.90 ; Other disorder of impulse control 312.39 ; Combinations of drug dependence excluding opioid type drug, unspecified abuse 304.80 and Anxiety F41.9 [facility] [id number] [place] [address] 57761- 2922 May, Left knee pain M25.562 ; Combinations of drug dependence excluding opioid type drug, unspecified abuse 304.80 ; Other disorder of impulse control 312.39 ; Fibromyalgia M79.7 ; Hypertension I10 ; Unspecified episodic mood disorder 296.90 and Left hip pain M25.552 [facility] [address] [address]- 2944 May, Anxiety F41.9 ; Unspecified episodic mood disorder 296.90 ; Other disorder of impulse control 312.39 and Combinations of drug dependence excluding opioid type drug, unspecified abuse 304.80 [facility] [id number] [place] [address] 28454- 1784 30 Apr, 2015 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 and 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, implants and grafts, initial encounter T84.82XA [facility] [id number] [place] [address] 79133- 4362 Apr, Anxiety F41.9 ; Unspecified episodic mood disorder 296.90 ; Combinations of drug dependence excluding opioid type drug, unspecified abuse 304.80 and Other disorder of impulse control 312.39 [facility] [id number] [place] [address] 11916- 7435 Apr, Arthritis M19.90 [facility] [id number] [place] [address] 32740- 8025 Apr, Anxiety F41.9 ; Unspecified episodic mood disorder 296.90 ; Combinations of drug dependence excluding opioid type drug, unspecified abuse 304.80 and Other disorder of impulse control 312.39 [facility] [address] [address]- 4101 17 Apr, 2015 Arthritis M19.90 [facility] [address] [place] [id number] [place] [id number] [id number] 15 Apr, 2015 [place] [id number] [place] [address]- [address] 15 Apr, 2015 [place] [address] [place] [id number] [place] [address] 51265- [address] 14 Apr, 2015 Unspecified episodic mood disorder 296.90 ; Combinations of drug dependence excluding opioid type drug, unspecified abuse 304.80 ; Other disorder of impulse control 312.39 and Anxiety F41.9 [facility] [id number], [place] [address] Apr, Left knee pain M25.562 [facility] [address] [place] [place] [id number] [place] [id number] Apr, [facility] [address] [place] [place] [id number] [place] [address]- [address] Mar, Unspecified episodic mood disorder 296.90 ; Anxiety F41.9 ; Other disorder of impulse control 312.39 and Combinations of drug dependence excluding opioid type drug, unspecified abuse 304.80 [facility] [id number] [place] [address] 78699- 4289 Mar, Hyperpigmentation L81.9 [facility] [id number] [place] [address] 93082- 0552 Mar, Arthritis M19.90 and Anxiety F41.9 [place] [id number] [place] [address] 00944- 6875 Mar, Unspecified episodic mood disorder F39 ; Combined drug dependence excluding opioids, 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 ; Other disorder of impulse control F63.89 and Anxiety F41.9 [facility] [id number] [place] [address] 99317- 0107 12 Mar, 2015 Well woman exam Z01.419 ; Other fatigue R53.83 ; Hot flashes N95.1 ; Depression, unspecified depression type F32.9 and Body mass index (BMI) of 23.0-23.9 in adult Z68.23 [facility] [id number] [place] [address] 01431- 3646 11 Mar, 2015 Unspecified episodic mood disorder 296.90 ; Other disorder of impulse control 312.39 and Anxiety F41.9 [facility] [id number] [place] [address] 81105- 4669 11 Mar, 2015 Well woman exam Z01.419 [...] of breast Z12.39 and Limited mobility Z74.[address] 0[address]57- 7173 Mar, [address] 78435- 9515 Mar, [address] 36101- 9225 Mar, [address] 87517- 2275 Mar, Other specified complication of internal orthopedic prosthetic devices, implants and grafts, initial encounter T84.89XA ; Fibromyalgia M79.7 ; Hypertension I10 ; Anemia D64.9 ; Insomnia G47.00 ; Anxiety F41.9 ; Arthritis M19.90 and Migraine G43.[address] 32170- 5895 Mar, [place] [address] [address]297- 2678 Feb, [address] 34339- 3699 Feb, Arthritis M19.90 and Anxiety F41.[address] 03474- 0238 Feb, [address] 87059- 0944 Feb, [facility] [id number] [place] [address] 6149 Feb, [facility] [id number] [place] [address]- 2544 Feb, [facility] [id number] [place] [address]- 9305 18 Feb, 2015 Anxiety F41.9 [facility] [id number] [place] [address] 73434- 0034 15 Feb, 2015 [facility] [id number] [place] [address], [place] [address]- 4031 Feb, [facility] [id number] [place] [address] 54511- 8627 Feb, 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 and Fibromyalgia M79.7 [facility] [id number] [address]- 1439 Feb, [facility] [id number], [place] [address]- 5663 Jan, [facility] [id number], [place] [address]- 4066 Jan, [facility] [id number], [place] [address]- 7320 Jan, [facility] [id number], [place] [address]- 8561 24 Jan, 2015 [facility] [id number] [address]- 4051 16 Jan, 2015 [facility] [id number] [address]- 2998 08 Jan, 2015 [facility] [id number] 8879 07 Jan, 2015 [facility] [id number], [place] [address]- 2353 Jan, [facility] [id number] [address]- 2330 Dec, [facility] [id number] [place] [address] 62333- 2900 Dec, Left knee pain M25.562 [facility] [id number] [place] [address] 82033- 5920 Dec, Left knee pain M25.562 [facility] [id number] [place] [address] 61455- 3428 Dec, Fibromyalgia M79.7 ; Hypertension I10 and Arthritis M19.90 [facility] [id number] [place] [address] 21883- 3711 Dec, [facility] [id number] [place] [address] 82780- 0820 Dec, [facility] [id number] [place] [address] 18456- 1583 Dec, [facility] [id number] [place] [address] 16659- 3002 Dec, [facility] [id number] [place] [address] 52264- 3896 Nov, [facility] [id number], [place] [address]- 2747 Nov, [facility] [id number] [place] [address] 59756- 4284 Nov, [facility] [id number], [place] [address]- 7956 Nov, Hypertension I10 [facility] [id number], [place] [address]- 4491 Oct, [facility] [id number], [place] [address]- 8369 Oct, [facility] [id number] [address]- 8359 Oct, [facility] [address] [id number], [place] [address]- 2634 Oct, [facility] [place] [facility] [address] [id number], [place] [address]- 7978 Oct, [facility] [place] [facility] [address] [id number], [place] [address]- 2693 Sep, [facility] [place] [facility] [address] [id number], [place] [address]- 1334 Sep, [facility] [address] [id number], [place] [address]- 0685 Sep, Hip pain associated with recalled total hip arthroplasty hardware 996.77 [facility] [place] [facility] [address] [facility] [facility] [id number], [place] [address]- 4051 Sep, [facility] [place] [facility] [address] [address] [facility] [id number], [place] [address]- 7880 Sep, [facility] [place] [facility] [address] [facility] [id number], [place] [address]- 0782 Sep, [facility] [place] [facility] [address] [facility] [id number], [place] [address]- 4215 Aug, [facility] [place] [facility] [address] [facility] [id number], [place] [address]- 5603 Jul, [facility] [place] [facility] [address] [facility] [id number], [place] [address]- 7603 June, [facility] [place] [facility] [address] [facility] [id number], [place] [address]- 8450 June, [facility] [place] [facility] [address] [facility] [id number], [place] [address]- 0498 June, [facility] [place] [facility] [address] [facility] [id number], [place] [address]- 4027 June, [facility] [place] [facility] [address] [id number], [place] [address]- 3644 June, [facility] [place] [facility] [address] [id number] [place] [address]- 5959 June, [facility] [place] [facility] [address] [id number] [place] [address]- 6594 May, [facility] [place] [facility] [address] [id number] [place] [address]- 2245 May, [facility] [place] [facility] [address] [id number] [place] [address]- 7740 May, [facility] [place] [facility] [address] [id number] [place] [address]- 2360 30 Apr, 2014 [facility] [place] [facility] [address] [id number] [place] [address]- 3419 Apr, [facility] [place] [facility] [address] [id number] [place] [address]- 1702 Apr, [facility] [place] [facility] [address] [id number] [place] [address]- 3567 Apr, [facility] [place] [facility] [address] [id number] [place] [address]- 0064 Apr, [facility] [place] [facility] [address] [address] [facility] [id number] [place] [address]- 3375 Apr, [facility] [place] [facility] [address] [id number] [place] [address]- 9777 Apr, [facility] [place] [facility] [address] [id number] [place] [address]- 4255 Apr, [facility] [place] [facility] [address] [id number] [place] [address]- 2350 10 Apr, 2014 [facility] [place] [facility] [address] [id number] [place] [address]- 5339 Apr, [facility] [place] [facility] [address] [address] [facility] [id number] [place] [address]- 3806 Apr, [facility] [place] [facility] [address] [id number] [place] [address]- 7921 Mar, 2014 [facility] [place] [facility] [address] [id number] [place] [address]- 5069 Mar, 2014 [facility] [place] [facility] [address] [id number] [place] [address]- 5093 16 Mar, 2014 [facility] [place] [facility] [address] [id number] [place] [address]- 8776 16 Mar, 2014 [facility] [place] [facility] [address] [id number] [place] [address]- 1504 Mar, 2014 [facility] [place] [facility] [address] [id number] [place] [address]- 9325 Mar, [facility] [place] [facility] [address] [address] [facility] [id number] [place] [address]- 3391 Feb, [facility] [place] [facility] [address] [id number] [place] [address]- 9989 Feb, [facility] [place] [facility] [address] [id number] [place] [address]- 9013 Feb, [facility] [place] [facility] [address] [address] [facility] [id number] [place] [address]- 0682 Feb, [facility] [place] [facility] [address] [id number] [place] [address]- 3415 Jan, [facility] [place] [facility] [address] [id number] [place] [address]- 9560 Jan, [facility] [place] [facility] [address] [id number] [place] [address]- 7568 Jan, [facility] [place] [facility] [address] [id number] [place] [address]- 0494 Jan, [facility] [place] [facility] [address] [id number] [place] 8854 Dec, [facility] [place] [facility] [address] [id number], [place] [address]- 1377 Dec, [facility] [place] [facility] [address] [id number] [place] [address]- 6693 Dec, [facility] [place] [facility] [address] [id number] [place] [address]- 3425 Dec, [facility] [place] [facility] [address] [id number] [place] [address]- 7873 Dec, [facility] [place] [facility] [address] [id number] [place] [address]- 0546 Dec, [facility] [place] [facility] [address] [id number] [place] [address]- 7606 Dec, [facility] [place] [facility] [address] [id number] [place] [address]- 7468 Dec, [facility] [place] [facility] [address] [id number] [place] [address]- 3151 Dec, [facility] [place] [facility] [address] [id number] [place] [address]- 7817 Dec, [facility] [place] [facility] [address] [id number] [place] [address]- 6541 Dec, [facility] [place] [facility] [address] [id number] [place] [address]- 7935 Nov, [facility] [place] [facility] [address] [id number], [place] [address]- 0902 Nov, [facility] [place] [facility] [address] [id number], [place] [address]- 3238 28 Nov, 2013 [facility] [place] [facility] [address] [id number] [place] [address]- 9499 17 Nov, 2013 [facility] [place] [facility] [address] [id number] [place] [address]- 8169 17 Nov, 2013 [facility] [place] [facility] [address] [id number] [place] [address]- 2134 15 Nov, 2013 [facility] [place] [facility] [address] [id number] [place] [address]- 6500 15 Nov, 2013 [facility] [place] [facility] [address] [id number] [place] [address]- 4475 15 Nov, 2013 [facility] [place] [facility] [address] [id number] [place] [address]- 4462 15 Nov, 2013 [facility] [place] [facility] [address] [id number] [place] [address]- 2312 14 Nov, 2013 [facility] [place] [facility] [address] [id number] [place] [address]- 0792 14 Nov, 2013 [facility] [place] [facility] [address] [id number] [place] [address]- 7615 14 Nov, 2013 [facility] [place] [facility] [address] [id number] [place] [address]- 4371 14 Nov, 2013 [facility] [place] [facility] [address] [id number] [place] [address]- 2652 13 Nov, 2013 [facility] [place] [facility] [address] [id number] [place] [address]- 0960 13 Nov, 2013 [facility] [place] [facility] [address] [id number] [place] [address]- 5585 11 Nov, 2013 [facility] [place] [facility] [address] [id number] [place] [address]- 1692 11 Nov, 2013 [facility] [place] [facility] [address] [id number] [place] [address]- 1992 07 Nov, 2013 [facility] [place] [facility] [address] [id number] [place] [address]- 6082 07 Nov, 2013 [facility] [place] [facility] [address] [id number] [place] [address]- 6270 07 Nov, 2013 [facility] [place] [facility] [address] [id number] [place] [address]- 6186 07 Nov, 2013 [facility] [place] [facility] [address] [id number] [place] [address]- 3462 30 Oct, 2013 [facility] [place] [facility] [address] [id number] [place] [address]- 2718 30 Oct, 2013 [facility] [place] [facility] [address] [id number] [place] [address]- 2537 26 Oct, 2013 [facility] [place] [facility] [address] [id number] [place] [address]- 6219 26 Oct, 2013 [facility] [place] [facility] [address] [id number] [place] [address]- 9524 22 Oct, 2013 [facility] [place] [facility] [address] [id number] [place] [address]- 9651 22 Oct, 2013 [facility] [place] [facility] [address] [id number] [place] [address]- 0098 18 Oct, 2013 [facility] [place] [facility] [address] [id number] [place] [address]- 3065 18 Oct, 2013 [facility] [place] [facility] [address] [id number] [place] [address]- 6470 18 Oct, 2013 [facility] [place] [facility] [address] [id number] [place] [address]- 3638 18 Oct, 2013 [facility] [place] [facility] [address] [id number] [place] [address]- 2457 12 Oct, 2013 [facility] [place] [facility] [address] [id number] [place] [address]- 8319 Oct, 2013 [facility] [place] [facility] [address] [id number] [place] [address]- 1990 Oct, 2013 [facility] [place] [facility] [address] [id number] [place] [address] 2544 Oct, [facility] [place] [facility] [address] [id number] [place] [address]- 8156 Sep, [facility] [place] [facility] [address] [id number] [place] [address]- 9390 Sep, [facility] [place] [facility] [address] [id number] [place] [address]- 8278 Sep, [facility] [place] [facility] [address] [id number] [place] [address]- 3111 Sep, [facility] [place] [facility] [address] [id number] [place] [address]- 7764 Sep, [facility] [place] [facility] [address] [id number] [place] [address]- 8584 Sep, [facility] [place] [facility] [address] [id number] [place] [address]- 4032 Sep, [facility] [place] [facility] [address] [id number] [place] [address]- 7294 Sep, [facility] [place] [facility] [address] [id number] [place] [address]- 3528 Sep, [facility] [place] [facility] [address] [id number] [place] [address]- 3750 Sep, [facility] [place] [facility] [address] [id number] [place] [address]- 4140 Sep, [facility] [place] [facility] [address] [id number] [place] [address]- 2806 Sep, [facility] [place] [facility] [address] [id number] [place] [address]- 2105 Sep, [facility] [place] [facility] [address] [id number] [place] [address]- 8950 Sep, [facility] [place] [facility] [address] [id number] [place] [address]- 2224 Sep, [facility] [place] [facility] [address] [id number] [place] [address]- 1393 Sep, [facility] [place] [facility] [address] [id number] [place] [address]- 2926 Sep, [facility] [place] [facility] [address] [id number] [place] [address]- 1253 Sep, [facility] [place] [facility] [address] [id number] [place] [address]- 9272 Aug, [facility] [place] [facility] [address] [id number] [place] [address]- 5837 Aug, [facility] [place] [facility] [address] [id number] [place] [address]- 2540 Aug, [facility] [place] [facility] [address] [id number] [place] [address]- 4049 Aug, [facility] [place] [facility] [address] [id number] [place] [address]- 0816 Aug, [facility] [place] [facility] [address] [id number] [place] [address]- 7588 Aug, [facility] [place] [facility] [address] [id number] [place] [address]- 7617 Jul, [facility] [place] [facility] [address] [id number] [place] [address]- 0213 Jul, [facility] [place] [facility] [address] [id number] [place] [address]- 3984 Jul, [facility] [place] [facility] [address] [id number] [place] [address]- 9638 Jul, [facility] [place] [facility] [address] [id number] [place] [address]- 1757 June, [facility] [place] [facility] [address] [id number] [place] [address]- 4956 June, [facility] [place] [facility] [address] [id number] [place] [address]- 1509 June, [facility] [place] [facility] [address] [id number] [place] [address]- 3977 June, [facility] [place] [facility] [address] [id number] [place] [address]- 3060 June, [facility] [place] [facility] [address] [id number] [place] [address]- 1197 June, [facility] [place] [facility] [address] [id number] [place] [address]- 4334 June, [facility] [place] [facility] [address] [id number] [place] [address]- 9472 May, [facility] [place] [facility] [address] [id number] [place] [address]- 4731 May, [facility] [place] [facility] [address] [id number] [place] [address]- 1778 May, [facility] [place] [facility] [address] [id number] [place] [address]- 2525 May, [facility] [place] [facility] [address] [id number] [place] [address]- 1975 May, [facility] [place] [facility] [address] [id number] [place] [address]- 7491 May, [facility] [place] [facility] [address] [id number] [place] [address]- 3600 Apr, [facility] [place] [facility] [address] [id number] [place] [address]- 2570 31 Apr, 2013 [facility] [place] [facility] [address] [id number] [place] [address]- 5879 28 Apr, 2013 [facility] [place] [facility] [address] [id number] [place] [address]- 7889 28 Apr, 2013 [facility] [place] [facility] [address] [id number] [place] [address]- 7002 14 Apr, 2013 [facility] [place] [facility] [address] [id number] [place] [address]- 5368 14 Apr, 2013 [facility] [place] [facility] [address] [id number] [place] [address]- 7345 Apr, [facility] [place] [facility] [address] [id number] [place] [address] Apr, [facility] [place] [facility] [address] [id number] [place] [address] 2014 10 Apr, 2013 [facility] [place] [facility] [address] [id number] [place] [address] Apr, [facility] [place] [facility] [address] [id number] [place] [address] Apr, [facility] [place] [facility] [address] [id number] [place] [address] Apr, [facility] [place] [facility] [address] [id number] [place] [address] Apr, [facility] [place] [facility] [address] [id number] [place] [address] Apr, [facility] [place] [facility] [address] [id number] [place] [address] Mar, [facility] [place] [facility] [address] [id number] [place] [address] Mar, [facility] [place] [facility] [address] [id number] [place] [address] Mar, [facility] [place] [facility] [address] [id number] [place] [address] Feb, [facility] [place] [facility] [address] [id number] [place] [address]776 Feb, [facility] [place] [facility] [address] [id number] [place] [address] Feb, [facility] [place] [facility] [address] [id number] [place] [address] Feb, [facility] [place] [facility] [address] [id number] [place] [address] Feb, [facility] [place] [facility] [address] [id number] [place] [address] 3833 Feb, [facility] [place] [facility] [address] [id number] [place] [address] Feb, [facility] [address] [id number] [place] [address] 45[address] Feb, [facility] [place] [facility] [address] [id number] [place] [address]783 Feb, [facility] [place] [facility] [address] [id number] [place] [address]396 Feb, [facility] [place] [facility] [address] [id number] [place] [address] Jan, [facility] [address] [id number] [place] [address] Jan, [facility] [place] [facility] [address] [id number] [place] [address] 6369 Jan, [facility] [place] [facility] [address] [id number] [place] [address] Jan, [facility] [address] [id number] [place] [address] 42[address] Jan, [facility] [place] [facility] [address] [id number] [place] [address] Jan, [facility] [place] [facility] [address] [id number] [place] [address] 9592 Jan, [facility] [place] [facility] [address] [id number] [place] [address] 112[address] Jan, [facility] [place] [facility] [address] [id number], [place] [address] Jan, [facility] [place] [facility] [address] [id number] [place] [address] Jan, [facility] [place] [facility] [address] [id number] [place] [address] 4936 Jan, [facility] [place] [facility] [address] [id number] [place] [address]657 17 Jan, 2013 [facility] [place] [facility] [address] [id number], [place] [address] Jan, [facility] [address] [id number] [place] [address] Jan, [facility] [address] [facility] [id number] [place] [address] Jan, [facility] [address] [facility] [address] [facility] [id number] [place] [address]- [address] Jan, [facility] [address] [id number] [place] [address]- [address]676 Jan, [facility] [address] [facility] [address] [facility] [id number] [place] [address]- [address] Jan, [facility] [address] [facility] [address] [facility] [id number] [place] [address]- [address]447 Jan, [facility] [address] [id number], [place] [address] Jan, [facility] [address] [facility] [address] [facility] [id number] [place] [address]- 3461 Jan, [facility] [address] [id number] [place] [address] Dec, [facility] [address] [facility] [address] [facility] [id number] [place] [address] Dec, [facility] [address] [facility] [address] [facility] [id number], [place] [address] Dec, [facility] [place] [facility] [address] [facility] [address] [facility] [id number], [place] [address]- [address] Dec, [facility] [place] [facility] [address] [id number], [place] [address]957 Dec, [facility] [place] [facility] [address] [facility] [address] [facility] [id number], [place] [address]- [address] Dec, [facility] [place] [facility] [address] [id number], [place] [address] Dec, [facility] [place] [facility] [address] [id number] [place] [address]- 4611 Dec, [facility] [place] [facility] [address] [id number] [place] [address]- 1117 Dec, [facility] [place] [facility] [address] [id number] [place] [address]- 0236 Dec, [facility] [place] [facility] [address] [id number] [place] [address]357 Nov, [facility] [place] [facility] [address] [id number] [place] [address]- 2868 Nov, [facility] [place] [facility] [address] [id number] [place] [address]- 4554 Nov, [facility] [place] [facility] [address] [id number] [place] [address]- 8815 Nov, [facility] [place] [facility] [address] [id number] [place] [address]- 98[address] Nov, [facility] [place] [facility] [address] [id number] [place] [address]- 1052 Nov, [facility] [place] [facility] [address] [id number] [place] [address]- 3753 Nov, [facility] [place] [facility] [address] [id number] [place] [address]- [address]441 Nov, [facility] [place] [facility] [address] [id number] [place] [address]- [address]18 10 Nov, 2012 [facility] [place] [facility] [address] [id number] [place] [address] Nov, [facility] [place] [facility] [address] [id number] [place] [address] Oct, [facility] [place] [facility] [address] [id number] [place] [address] Oct, [facility] [place] [facility] [address] [id number] [place] [address] Oct, [facility] [address] [id number] [place] [address] 8311 Oct, [facility] [place] [facility] [address] [id number] [place] [address] 8501 Oct, [facility] [place] [facility] [address] [id number] [place] [address] 18[address] Sep, [facility] [place] [facility] [address] [id number] [place] [address] 43[address] Sep, [facility] [address] [id number] [place] [address] Aug, [facility] [place] [facility] [address] [id number] [place] [address]874 Aug, [facility] [place] [facility] [address] [id number] [place] [address] 9466 Aug, [facility] [place] [facility] [address] [id number] [place] [address] 1884 Aug, [facility] [place] [facility] [address] [id number] [place] [address] 8533 Aug, [facility] [place] [facility] [address] [id number] [place] [address]- 2443 Aug, [facility] [place] [facility] [address] [id number] [place] [address]- [address]79 Aug, [facility] [place] [facility] [address] [id number], [place] [address] Jul, [facility] [place] [facility] [address] [id number] [place] [address] 2597 Jul, [facility] [place] [facility] [address] [id number] [place] [address]- 4814 June, [facility] [place] [facility] [address] [id number] [place] [address]- 6001 June, [facility] [place] [facility] [address] [id number] [place] [address] 7920 June, [facility] [address] [id number] [place] [address] 5826 June, [facility] [address] [id number] [place] [address] 0658 June, [facility] [address] [id number] [place] [address] 3299 June, [facility] [address] [id number] [place] [address] 6992 June, [facility] [address] [id number] [place] [address]- 7527 June, [facility] [address] [id number] [place] [address] 0360 June, [facility] [address] [id number] [place] [address]- 2514 June, [facility] [address] [id number] [place] [address]- 5367 June, [facility] [address] [id number] [place] [address]- 2262 May, [facility] [address] [id number] [place] [address]- 5413 May, [facility] [address] [id number] [place] [address]- 3391 May, [facility] [address] [id number] [place] [address]- 5034 May, [facility] [address] [id number] [place] [address]- 5032 Apr, [facility] [address] [id number] [place] [address]- 4892 Apr, [facility] [address] [id number] [place] [address] 7900 Apr, [facility] [address] [id number] [place] [address]- 1404 Mar, [facility] [address] [id number] [place] [address]- 1756 Mar, [facility] [address] [id number] [place] [address]- 0500 Feb, [facility] [address] [id number] [place] [address]- 4460 Feb, [facility] [address] [id number] [place] [address]- 8597 Feb, [facility] [address] [id number] [place] [address]- 7716 Feb, [facility] [address] [id number] [place] [address]- 8963 Feb, [facility] [address] [id number] [place] [address]- 7784 Feb, [facility] [address] [id number] [place] [address]- 4373 Feb, [facility] [address] [id number] [place] [address] Jan, [facility] [address] [id number] [place] [address]- 9007 Jan, [facility] [address] [id number] [place] [address]- 9443 Jan, [facility] [place] [facility] [address] [id number] [place] [address]- 3538 Jan, [facility] [place] [facility] [address] [id number] [place] [address]- 6976 Jan, [facility] [place] [facility] [address] [id number] [place] [address]- 2896 Jan, [facility] [address] [id number], [place] [address] 7[address] Jan, [facility] [place] [facility] [address] [id number] [place] [address]- 1067 Jan, [facility] [place] [facility] [address] [id number] [place] [address] Jan, [facility] [place] [facility] [address] [id number] [place] [address]- 0376 Jan, [facility] [place] [facility] [address] [id number] [place] [address]- 0422 Jan, [facility] [place] [facility] [address] [id number] [place] [address]- 6530 Dec, [facility] [place] [facility] [address] [id number] [place] [address]- 0998 Dec, [facility] [place] [facility] [address] [id number] [place] [address]- 8827 Dec, [facility] [place] [facility] [address] [id number] [place] [address]- 6329 Dec, [facility] [place] [facility] [address] [id number] [place] [address]- 7464 Nov, [facility] [place] [facility] [address] [id number] [place] [address]- 7812 Nov, [facility] [place] [facility] [address] [id number], [place] [address]- 66[address] 08 Nov, 2011 [facility] [place] [facility] [address] [id number], [place] [address] 6[address] 27 Oct, 2011 [facility] [place] [facility] [address] [id number] [place] [address]- 8050 24 Oct, 2011 [facility] [place] [facility] [address] [id number] [place] [address]- 0285 21 Oct, 2011 [facility] [place] [facility] [address] [id number] [place] [address]- 5230 10 Oct, 2011 [facility] [place] [facility] [address] [id number] [place] [address]- 6268 07 Oct, 2011 [facility] [place] [facility] [address] [id number] [place] [address]- 3596 04 Oct, 2011 [facility] [place] [facility] [address] [id number] [place] [address]- 3196 04 Oct, 2011 [facility] [place] [facility] [address] [id number] [place] [address]- 0176 29 Sep, 2011 [facility] [place] [facility] [address] [id number] [place] [address]- 2327 Sep, [facility] [place] [facility] [address] [id number] [place] [address]- 7926 Sep, [facility] [place] [facility] [address] [id number] [place] [address]- 5888 Sep, [facility] [place] [facility] [address] [id number] [place] [address]- 1293 Sep, [facility] [place] [facility] [address] [id number] [place] [address]- 2690 Aug, [facility] [place] [facility] [address] [id number] [place] [address]- 8675 Aug, [facility] [place] [facility] [address] [id number] [place] [address]- 4598 Aug, [facility] [place] [facility] [address] [id number] [place] [address]- 0586 16 Aug, 2011 [facility] [place] [facility] [address] [id number] [place] [address] 2542 Aug, [facility] [place] [facility] [address] [id number] [place] [address]- 5506 Aug, [facility] [place] [facility] [address] [id number] [place] [address]- 2546 Aug, [facility] [place] [facility] [address] [id number] [place] [address]- 2795 Jul, [facility] [place] [facility] [address] [id number] [place] [address]- 8780 Jul, [facility] [place] [facility] [address] [id number] [place] [address]- 5344 Jul, [facility] [place] [facility] [address] [id number] [place] [address]- 1353 Jul, [facility] [place] [facility] [address] [id number] [place] [address]- 4011 Jul, [facility] [place] [facility] [address] [id number] [place] [address]- 0867 Jul, [facility] [place] [facility] [address] [id number] [place] [address]- 2122 07 Jul, 2011 [facility] [place] [facility] [address] [id number] [place] [address]- 3243 06 Jul, 2011 [facility] [place] [facility] [address] [id number] [place] [address]- 7572 05 Jul, 2011 [facility] [place] [facility] [address] [id number] [place] [address]- 1630 June, [facility] [place] [facility] [address] [id number] [place] [address]- 1077 June, [facility] [place] [facility] [address] [id number] [place] [address]- 3528 June, [facility] [place] [facility] [address] [id number] [place] [address]- 6278 June, [facility] [place] [facility] [address] [id number] [place] [address]- 8729 June, [facility] [place] [facility] [address] [id number] [place] [address]- 4959 June, [facility] [place] [facility] [address] [id number] [place] [address]- 2366 June, [facility] [place] [facility] [address] [id number] [place] [address]- 8557 June, [facility] [address] [id number] [place] [address]- 2338 25 May, 2011 [facility] [place] [facility] [address] [id number] [place] [address]- 9196 23 May, 2011 [facility] [place] [facility] [address] [id number] [place] [address]- 6296 May, [facility] [place] [facility] [address] [id number] [place] [address]- 4122 May, [facility] [place] [facility] [address] [id number] [place] [address]- 5853 May, [facility] [place] [facility] [address] [id number] [place] [address]- 9020 May, [facility] [address] [id number] [place] [address]- 6016 May, [facility] [place] [facility] [address] [id number] [place] [address]- 8333 Apr, [facility] [place] [facility] [address] [id number] [place] [address]- 4910 Apr, [facility] [place] [facility] [address] [id number] [place] [address]- 0744 Apr, [facility] [place] [facility] [address] [id number] [place] [address]- 9712 Apr, [facility] [place] [facility] [address] [id number] [place] [address]- 5771 Apr, [facility] [place] [facility] [address] [id number] [place] [address]- 4597 Apr, [facility] [place] [facility] [address] [id number] [place] [address]- 4507 Apr, [facility] [place] [facility] [address] [id number] [place] [address]- 4239 Mar, [facility] [place] [facility] [address] [id number] [place] [address]- 0746 Mar, [facility] [place] [facility] [address] [id number] [place] [address]- 5626 14 Mar, 2011 [facility] [place] [facility] [address] [id number] [place] [address] 2546 Mar, [facility] [place] [facility] [address] [id number] [place] [address] 2546 Mar, [facility] [place] [facility] [address] [id number] [place] [address] 2546 Mar, [facility] [place] [facility] [address] [id number] [place] [address] 2546 Mar, [facility] [place] [facility] [address] [id number] [place] [address]- 9336 Feb, [facility] [place] [facility] [address] [id number] [place] [address]- 7421 Feb, [facility] [place] [facility] [address] [id number] [place] [address]- 1486 Feb, [facility] [place] [facility] [address] [id number] [place] [address]- 6938 Feb, [facility] [place] [facility] [address] [id number] [place] [address]- 0536 Feb, [facility] [place] [facility] [address] [id number] [place] [address]- 1902 Feb, [facility] [place] [facility] [address] [id number] [place] [address] 2546 Feb, [facility] [place] [facility] [address] [id number] [place] [address] 2546 Feb, [facility] [place] [facility] [address] [id number] [place] [address] 2546 Feb, [facility] [place] [facility] [address] [id number] [place] [address]- 6349 Feb, [facility] [address] [id number] [place] [address]- 8180 Jan, [facility] [place] [facility] [address] [id number] [place] [address]- 4786 Jan, [facility] [place] [facility] [address] [id number] [place] [address]- 9206 Jan, [facility] [place] [facility] [address] [id number] [place] [address]- 0005 Jan, [facility] [place] [facility] [address] [id number] [place] [address]- 2462 Jan, [facility] [place] [facility] [address] [id number] [place] [address]- 3792 Jan, [facility] [address] [id number] [place] [address]- 6023 Jan, [facility] [place] [facility] [address] [id number] [place] [address]- 3174 Jan, [facility] [place] [facility] [address] [id number] [place] [address]- 5961 Jan, [facility] [place] [facility] [address] [id number] [place] [address]- 5114 Jan, [facility] [place] [facility] [address] [id number] [place] [address]- 3165 Jan, [facility] [place] [facility] [address] [id number] [place] [address]- 2122 Dec, [facility] [place] [facility] [address] [id number] [place] [address]- 3503 Dec, [facility] [place] [facility] [address] [id number] [place] [address]- 6419 17 Dec, 2010 [facility] [place] [facility] [address] [id number] [place] [address]- 5296 16 Dec, 2010 [facility] [place] [facility] [address] [id number] [place] [address]- 1954 14 Dec, 2010 [facility] [place] [facility] [address] [id number] [place] [address]- 2213 09 Dec, 2010 [facility] [place] [facility] [address] [id number] [place] [address]- 5212 08 Dec, 2010 [facility] [place] [facility] [address] [id number] [place] [address]- 5089 07 Dec, 2010 [facility] [place] [facility] [address] [id number] [place] [address]- 4464 Dec, [facility] [place] [facility] [address] [id number] [place] [address]- 1336 Nov, [facility] [place] [facility] [address] [id number] [place] [address] Nov, [facility] [place] [facility] [address] [id number] [place] [address]- 9772 Nov, [facility] [place] [facility] [address] [id number] [place] [address]- 4551 Nov, [facility] [place] [facility] [address] [id number] [place] [address]- 1339 24 Nov, 2010 [facility] [place] [facility] [address] [id number] [place] [address]- 6919 Nov, [facility] [place] [facility] [address] [id number] [place] [address]- 0630 Aug, [facility] [place] [facility] [address] [id number] [place] [address]- 1028 14 Feb, 2010 [facility] [place] [facility] [address] [id number] [place] [address]- 5857 14 Jan, 2010 [facility] [place] [facility] [address] [id number] [place] [address]- 9170 06 Jan, 2010 [facility] [place] [facility] [address] [id number] [place] [address]- 1532 Jan, [facility] [address] [id number], [place] [address]- 1418 Jan, [facility] [id number], [place] [address]- 4226 Jan, [facility] [id number], [place] [address]- 3768 Dec, [facility] [id number], [place] [address]- 9902 Dec, [facility] [id number], [place] [address]- 1693 Dec, [facility] [id number], [place] [address]- 2719 Dec, [facility] [id number] [address] Nov, [facility] [id number], [place] [address]- 7573 Nov, [facility] [address] [id number] [address]73 Nov, IMMUNIZATIONS No Known Immunizations SOCIAL HISTORY Never Assessed REASON FOR VISIT f/u PLAN OF CARE Activity Details Follow Up Not rescheduled with me Reason:Anxiety and depressiom VITAL SIGNS MEDICATIONS Medication Instructions Dosage Frequency Start Date End Date Duration Status Furosemide 20 MG Orally Once a day ONE TABLET 24h 30 Unknown Tizanidine HCl 4 MG Orally Three times a day 1 tablet as needed 8h May, Unknown Clonidine HCl 0.1 MG Orally twice a day 1 tablet 12h 30 Unknown Nabumetone 500 MG Orally Twice a day 1 tablet 12h 30 Unknown Aspirin 81 MG Orally Once a day 1 tablet 24h 30 Unknown Fluoxetine HCl 40 mg Orally Once a day 2 capsule in the morning 24h 30 Unknown Fentanyl 50 MCG/HR Transdermal 72hrs 1 patch to skin Mar, 30 days Unknown Sumatriptan Succinate 100 mg Orally Once a day 1 tablet as needed one time 24h 30 Unknown Promethazine HCl 25 MG Orally every 12 hrs 1 tablet as needed 12h 30 Unknown Pantoprazole Sodium 40 mg Orally Once a day 1 tablet 24h 30 days Unknown Klonopin 1 MG Orally 3 times a day 1 tablet 8h 05 days Unknown Lyrica 150 MG Orally 3 times a day 1 capsule 8h 28 days Unknown Abilify 2 MG Orally Once a day 2 tablets 24h 30 days Unknown RESULTS No Results PROCEDURES Procedure Date Ordered Result Body Site Psychotherapy, patient &/family, 30 minutes, established patient May 22, 2017 INSTRUCTIONS MEDICATIONS ADMINISTERED No [...]
--- OUTSIDE RECORDS SUMMARY | 2018-01-13 21:01 | XMS REPORT ---
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 Active 456620424 Problem Hypertension I10 Active 72714312 Problem Arthritis M19.90 Active 9770798 Problem Other disorder of impulse control F63.89 Active 55362287 Problem Anxiety F41.9 Active 88315374 Problem Unspecified episodic mood disorder F39 Active 90370023 Problem Left hip pain M25.552 Active 59219806 ALLERGIES No Information ENCOUNTERS Encounter Location Date Diagnosis [facility] [address] [id number] [id number] Aug, [facility] [address] [facility] [id number] [address] Aug, Arthritis M19.90 [facility] [address] [facility] [id number], [place] [address] Aug, [facility] [id number] [place] [address] 15016- 3371 Aug, Obesity (BMI 30.0-34.9) E66.9 ; Unspecified episodic mood disorder F39 and Hypertension I10 [facility] [id number] [place] [address] 48025- 4334 Aug, Unspecified episodic mood disorder F39 [facility] [id number] [place] [address] 76765- 8986 Aug, [facility] [id number] [place] [address] 93643- 2125 Jul, Unspecified episodic mood disorder F39 [facility] [id number] [place] [address] 52347- 7033 Jul, [facility] [id number] [place] [address] 80384- 9837 Jul, Arthritis M19.90 [facility] [id number] [place] [address] 84961- 2954 Jul, Left hip pain M25.552 ; Hypertension I10 ; Other obesity due to excess calories E66.09 and Body mass index (BMI) of 34.0-34.9 in adult Z68.34 [facility] [id number] [place] [address] 97991- 0569 Jul, Unspecified episodic mood disorder F39 [facility] [id number] [place] [address] 28272- 6167 June, Gastroesophageal reflux disease, esophagitis presence not specified K21.9 [facility] [id number] [place] [address] 97751- 7974 June, [facility] [id number] [place] [address] 81906- 7279 June, [facility] [id number] [place] [address] 37549- 1945 June, Arthritis M19.90 [facility] [address] [address] 8600 June, [facility] [id number] [place] [address] 76511- 1983 June, [facility] [id number] [place] [address] 58080- 0173 June, Unspecified episodic mood disorder F39 [facility] [id number] [place] [address] 92450- 2928 May, Unspecified episodic mood disorder F39 [facility] [id number] [place] [address] 65504- 2829 May, [facility] [id number] [place] [address] 06791- 6685 May, Arthritis M19.90 [facility] [id number] [place] [address] 17698 -2591 May, Dysuria R30.0 ; Abscess L02.91 and Acute cystitis without hematuria N30.00 [facility] [id number] [place] [address] 93536- 5691 May, Other disorder of impulse control F63.89 ; Unspecified episodic mood disorder F39 ; Combined drug dependence excluding opioids, 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 ; Anxiety F41.9 and Other psychoactive substance dependence, 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 [facility] [id number] [place] [address] 37879- 1674 May, [facility] [id number] [place] [address] 70629- 4350 May, Other disorder of impulse control F63.89 ; Unspecified episodic mood disorder F39 ; Combined drug dependence excluding opioids, 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 ; Other psychoactive substance dependence, 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 and Anxiety F41.9 [facility] [id number] [place] [address] 32520- 6261 May, Other chronic pain G89.29 ; Left hip pain M25.552 ; Hypertension I10 ; 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, 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 and Unspecified episodic mood disorder F39 [facility] [id number] [place] [address] 70708- 3601 Apr, [facility] [id number] [place] [address] 70156 -9071 Apr, Neck pain M54.2 ; Left hip pain M25.552 and Fall, initial encounter W19.XXXA [facility] [id number] [place] [address] 38873- 5367 Apr, Unspecified episodic mood disorder F39 ; Combined drug dependence excluding opioids, 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 ; Anxiety F41.9 ; Other psychoactive substance dependence, 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 and Other disorder of impulse control F63.89 [facility] [id number] [place] [address] 96631- 5012 Apr, [facility] [id number] [place] [address] 39497- 2045 Apr, Arthritis M19.90 and Unspecified episodic mood disorder F39 [facility] [id number] [place] [address] 79565- 3959 Apr, Unspecified episodic mood disorder F39 [facility] [id number] [place] [address] 03663- 0573 Apr, [facility] [id number] [place] [address] 09171- 9262 Apr, [facility] [id number] [place] [address] 20793- 5080 Apr, Unspecified episodic mood disorder F39 ; Combined drug dependence excluding opioids, 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 ; Anxiety F41.9 ; Other psychoactive substance dependence, 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 and Other disorder of impulse control F63.89 [facility] [id number] [place] [address] 83789- 1769 Mar, Unspecified episodic mood disorder F39 [facility] [address] [address] 9267 Mar, Gastroesophageal reflux disease, esophagitis presence not specified K21.9 [facility] [address] [address] 8936 Mar, Arthritis M19.90 and Unspecified episodic mood disorder F39 [facility] [id number] [place] [address] 59886- 5326 Feb, [facility] [id number] [place] [address] 50088- 9431 Feb, [facility] [id number] [place] [address] 78607- 5299 Feb, [facility] [id number] [place] [address] 80455- 3074 Feb, Arthritis M19.90 [facility] [id number] [place] [address] 82808- 0315 Feb, Non-pressure chronic ulcer of right calf, 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 ; Unspecified episodic mood disorder F39 and Left hip pain M25.552 [facility] [address] [address] 2014 Feb, [facility] [id number] [place] [address] 98150- 1407 Feb, [facility] [id number] [place] [address] 81062- 6345 Jan, Arthritis M19.90 [facility] [id number] [place] [address] 24870- 2972 Jan, Left hip pain M25.552 and Non-pressure chronic ulcer of right calf, 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 [facility] [address] [address]- 8579 Jan, Chronic hepatitis C without hepatic coma B18.2 [facility] [id number] [place] [address] 19516- 8819 Jan, Encounter for immunization Z23 ; Venous insufficiency ( chronic) (peripheral) I87.2 ; Non-pressure chronic ulcer of unspecified calf limited to breakdown of skin L97.201 and Gastroesophageal reflux disease, esophagitis presence not specified K21.9 [facility] [id number] [place] [address] 66094- 3917 Jan, [facility] [id number] [place] [address] 82396- 8402 Jan, Chronic hepatitis C without hepatic coma B18.2 and Encounter for immunization Z23 [facility] [id number] [place] [address] 72319- 0152 Jan, Arthritis M19.90 [facility] [id number] [place] [address] 85625- 6993 Jan, [facility] [id number] [place] [address] 87928- 7406 Dec, [facility] [id number] [place] [address] 40902- 8782 Dec, Unspecified episodic mood disorder F39 [facility] [id number] [place] [address] 64205- 1944 Dec, Arthritis M19.90 [facility] [id number] [place] [address] 94852- 5634 Dec, Arthritis M19.90 [facility] [id number] [place] [address] 85371- 5223 Nov, [facility] [id number] [place] [address] 89761- 1885 Nov, [facility] [id number] [place] [address] 42801- 2742 Nov, Other psychoactive substance dependence, 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 ; 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, 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 and Chronic hepatitis C without hepatic coma B18.2 [facility] [id number] [place] [address] 36509- 7076 Nov, Arthritis M19.90 [facility] [id number] [place] [address] 79947 -3990 Oct, Partial thickness burn of abdomen, initial encounter T21.22XA [facility] [id number] [place] [address] 76762- 0991 Oct, [facility] [id number] [place] [address] 08907- 0959 Sep, Arthritis M19.90 [facility] [id number] [place] [address] 57605- 1528 Sep, [facility] [id number] [place] [address] 29184- 3213 Sep, [facility] [id number] [place] [address] 62155- 2075 Sep, Unspecified episodic mood disorder F39 ; Chronic hepatitis C without hepatic coma B18.2 and Left hip pain M25.552 [facility] [id number] [place] [address] 81088- 9805 Sep, Arthritis M19.90 and Left hip pain M25.552 [facility] [id number] [place] [address] 36742- 1721 Aug, [facility] [id number] [place] [address] 76432- 3628 Aug, [facility] [id number] [place] [address] 74537- 6223 Aug, Chronic hepatitis C without hepatic coma B18.2 [facility] [id number] [place] [address] 33352- 8288 Aug, [facility] [id number] [place] [address] 83419- 7328 Aug, Chronic hepatitis C without hepatic coma B18.2 [facility] [id number] [place] [address] 83962- 0608 Aug, 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, 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 [facility] [id number] [place] [address] 32214- 4060 Aug, [facility] [id number] [place] [address] 25018- 9698 Aug, Chronic hepatitis C without hepatic coma B18.2 and Hypertension I10 [facility] [id number] [place] [address] 95203- 7359 Jul, [facility] [id number] [place] [address] 12333- 9936 June, [facility] [id number] [place] [address] 89825- 6566 Apr, Fibromyalgia M79.7 ; Left hip pain M25.552 and Decubitus ulcer of sacral region, stage 1 L89.151 [facility] [id number] [place] [address] 13422- 7750 Apr, [facility] [id number] [place] [address] 18626- 9577 Apr, [facility] [id number] [place] [address] 87098- 5405 Feb, [facility] [id number] [place] [address] 00590- 7886 Dec, Anxiety F41.9 ; Combined drug dependence excluding opioids, 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 and Unspecified episodic mood disorder F39 [facility] [id number] [place] [address] 47065- 3499 Dec, [facility] [id number] [place] [address] 51708- 9132 Nov, [facility] [id number] [place] [address] 75770- 5822 Nov, [facility] [id number] [place] [address] 00995- 7326 Nov, Other disorder of impulse control F63.89 and Anxiety F41.9 [facility] [id number] [place] [address] 02837- 3847 Oct, [facility] [id number] [place] [address] 87711 -3048 14 Oct, 2015 Open wound of left thigh, initial encounter S71.102A [facility] [id number] [place] [address] 91584- 8941 Oct, [facility] [id number] [place] [address] 40774- 6084 Sep, Unspecified episodic mood disorder F39 ; Other disorder of impulse control 312.39 ; Combined drug dependence excluding opioids, 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 and Anxiety F41.9 [facility] [id number] [place] [address] 06994- 9473 Sep, Other disorder of impulse control 312.39 ; Combined drug dependence excluding opioids, 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 ; Anxiety F41.9 and Unspecified episodic mood disorder F39 [facility] [id number] [place] [address] 75591- 3853 Sep, Other chronic pain G89.29 [facility] [id number] [place] [address] 27652- 5942 Sep, [facility] [id number] [place] [address] 48775- 0200 Sep, [facility] [id number] [place] [address] 89945- 3892 Aug, [facility] [id number] [place] [address] 85549- 8140 Aug, [facility] [id number] [place] [address] 89682- 5974 Aug, [facility] [id number] [place] [address] 38027- 7311 Jul, [facility] [id number] [place] [address] 40986- 2154 Jul, [facility] [id number] [place] [address] 49878- 2993 Jul, [facility] [id number] [place] [address] 23333- 7356 Jul, Arthritis M19.90 ; Chronic hepatitis C without hepatic coma B18.2 and Left hip pain M25.552 [facility] [id number] [place] [address] 16018- 4908 Jul, Left knee pain M25.562 [facility] [id number] [place] [address] 31977- 2773 Jul, Combined drug dependence excluding opioids, 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 ; Anxiety F41.9 ; Other disorder of impulse control 312.39 and Unspecified episodic mood disorder F39 [facility] [id number] [place] [address] 81868- 1372 Jul, Left knee pain M25.562 [facility] [id number] [place] [address] 79949- 3463 Jul, Left knee pain M25.562 and Left hip pain M25.552 [facility] [id number] [place] [address] 19376- 6283 Jul, [facility] [id number] [place] [address] 00860- 5143 June, [facility] [id number] [place] [address] 25304- 4089 June, Combinations of drug dependence excluding opioid type drug, unspecified abuse 304.80 ; Other disorder of impulse control 312.39 ; Unspecified episodic mood disorder F39 and Anxiety F41.9 [facility] [id number] [address]- 2811 June, Other fatigue R53.83 ; Headache R51 and Left knee pain M25.562 [facility] [id number] [place] [address] 27528- 4793 June, Unspecified episodic mood disorder F39 ; Combinations of drug dependence excluding opioid type drug, unspecified abuse 304.80 ; Other disorder of impulse control 312.39 and Anxiety F41.9 [facility] [id number] [place] [address] 31476- 7982 June, Anxiety F41.9 [facility] [id number] [place] [address] 94199- 2766 June, Pain in left knee M25.562 [facility] [id number] [place] [address] 71083- 4817 June, Anxiety F41.9 and Combinations of drug dependence excluding opioid type drug, unspecified abuse 304.80 [place] [id number] [place] [address] 35285- 4308 June, Unspecified episodic mood disorder 296.90 ; Combinations of drug dependence excluding opioid type drug, unspecified abuse 304.80 and Other disorder of impulse control 312.39 [facility] [address], [place] [address]- 9625 June, Anxiety F41.9 and Unspecified episodic mood disorder 296.90 [facility] [id number] [place] [address] 19367- 7178 May, Arthritis M19.90 [facility] [id number] [place] [address] 38855- 2607 May, Arthritis M19.90 [facility] [id number] [place] [address] 38501- 5137 May, Anxiety F41.9 ; Combinations of drug dependence excluding opioid type drug, unspecified abuse 304.80 and Other disorder of impulse control 312.39 [facility] [address], [place] [address]- 2385 18 May, 2015 Left knee pain M25.562 [facility] [address], [place] [address]- 1427 14 May, 2015 Arthritis M19.90 [facility] [address], [place] [address]- 9322 May, [facility] [id number] [place] [address] 84316- 7849 May, Anxiety F41.9 ; Unspecified episodic mood disorder 296.90 ; Combinations of drug dependence excluding opioid type drug, unspecified abuse 304.80 and Other disorder of impulse control 312.39 [facility] [address] [address]- 6703 May, Left knee pain M25.562 [facility] [id number] [place] [address] 85187- 0350 11 May, 2015 Left knee pain M25.562 ; Combinations of drug dependence excluding opioid type drug, unspecified abuse 304.80 ; Other disorder of impulse control 312.39 ; Fibromyalgia M79.7 ; Hypertension I10 ; Unspecified episodic mood disorder 296.90 and Left hip pain M25.552 [facility] [address], [place] [address]- 0022 May, Unspecified episodic mood disorder 296.90 ; Other disorder of impulse control 312.39 ; Combinations of drug dependence excluding opioid type drug, unspecified abuse 304.80 and Anxiety F41.9 [facility] [id number] [place] [address] 97203- 5374 May, Left knee pain M25.562 ; Combinations of drug dependence excluding opioid type drug, unspecified abuse 304.80 ; Other disorder of impulse control 312.39 ; Fibromyalgia M79.7 ; Hypertension I10 ; Unspecified episodic mood disorder 296.90 and Left hip pain M25.552 [facility] [id number] [place] [address] 92138- 9455 May, Anxiety F41.9 ; Unspecified episodic mood disorder 296.90 ; Other disorder of impulse control 312.39 and Combinations of drug dependence excluding opioid type drug, unspecified abuse 304.80 [facility] [id number] [place] [address] 72415- 6761 30 Apr, 2015 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 and 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, implants and grafts, initial encounter T84.82XA [facility] [id number] [place] [address] 94856- 8254 Apr, Anxiety F41.9 ; Unspecified episodic mood disorder 296.90 ; Combinations of drug dependence excluding opioid type drug, unspecified abuse 304.80 and Other disorder of impulse control 312.39 [facility] [id number] [place] [address] 13644- 5120 Apr, Arthritis M19.90 [facility] [id number] [place] [address] 55987- 0779 Apr, Anxiety F41.9 ; Unspecified episodic mood disorder 296.90 ; Combinations of drug dependence excluding opioid type drug, unspecified abuse 304.80 and Other disorder of impulse control 312.39 [facility] [id number] [place] [address] 28548- 9343 17 Apr, 2015 Arthritis M19.90 [facility] [id number] [place] [address] 38945- 9189 15 Apr, 2015 [facility] [id number] [place] [address] 59634- 0524 15 Apr, 2015 [facility] [id number] [place] [address] 99992- 8869 14 Apr, 2015 Unspecified episodic mood disorder 296.90 ; Combinations of drug dependence excluding opioid type drug, unspecified abuse 304.80 ; Other disorder of impulse control 312.39 and Anxiety F41.9 [facility] [id number] [place] [phone] 11 Apr, 2015 Left knee pain M25.562 [address] [id number] [place] [address] [phone] 11 Apr, 2015 [address] [address] [id number] Mar, Unspecified episodic mood disorder 296.90 ; Anxiety F41.9 ; Other disorder of impulse control 312.39 and Combinations of drug dependence excluding opioid type drug, unspecified abuse 304.80 [place] [id number] [place] [address] [phone] Mar, Hyperpigmentation L81.9 [place] [id number] [place] [address] [phone] Mar, Arthritis M19.90 and Anxiety F41.9 [address] [address] [phone] Mar, Unspecified episodic mood disorder F39 ; Combined drug dependence excluding opioids, 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 ; Other disorder of impulse control F63.89 and Anxiety F41.9 [place] [address] [id number] [place] [address] 39743- 9330 12 Mar, 2015 Well woman exam Z01.419 ; Other fatigue R53.83 ; Hot flashes N95.1 ; Depression, unspecified depression type F32.9 and Body mass index (BMI) of 23.0-23.9 in adult Z68.23 [place] [address] [address] [place] [id number] [place] [address] 03141- 6398 11 Mar, 2015 Unspecified episodic mood disorder 296.90 ; Other disorder of impulse control 312.39 and Anxiety F41.9 [place] [address] [address] [place] [id number] [place] [address] 02761- 9373 11 Mar, 2015 Well woman exam Z01.419 [...] of breast Z12.39 and Limited mobility Z74.[address] [address]- [address] Mar, [place] [address] [address]- [address]703 Mar, [address] [address]- 6174 Mar, [address] [address]- 3674 Mar, Other specified complication of internal orthopedic prosthetic devices, implants and grafts, initial encounter T84.89XA ; Fibromyalgia M79.7 ; Hypertension I10 ; Anemia D64.9 ; Insomnia G47.00 ; Anxiety F41.9 ; Arthritis M19.90 and Migraine G43.909 [place] [address] [address]- 9077 Mar, [place] [address] [address]- 9309 Feb, [place] [address] [address]- 4628 Feb, Arthritis M19.90 and Anxiety F41.[address] 08973- 0671 Feb, [place] [address] 17256- 9347 Feb, [place] [address] [address]- 3067 Feb, [facility] [address] [facility] [id number] [place] [address] 1203 Feb, [facility] [id number] [place] [address]- 8572 Feb, Anxiety F41.9 [facility] [id number] [place] [address]- 8383 Feb, [facility] [address] [place] [address] [id number] [place] [address], [place] [address]- 7452 Feb, [facility] [id number] [place] [address]- 8241 Feb, 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 and Fibromyalgia M79.7 [facility] [id number] [place] [address]- 6706 Feb, [facility] [address] [place] [address] [id number] [place] [address], [place] [address]- 5311 Jan, [facility] [id number] [place] [address]- 1042 Jan, [facility] [id number] [place] [address]- 5292 Jan, [facility] [id number] [place] [address]- 9538 24 Jan, 2015 [facility] [id number] [place] [address] 2548 16 Jan, 2015 [facility] [address] [id number] [address]- 2549 08 Jan, 2015 [facility] [id number] [place] [address]- 2769 Jan, [facility] [address] [id number] [place] [address]- 2545 Jan, [facility] [address] [id number] [address]- 5112 Dec, [facility] [address] [facility] [id number], [place] [address]- 6562 Dec, Left knee pain M25.562 [facility] [address] [id number] [place] [address] 03573- 7241 Dec, Left knee pain M25.562 [facility] [id number] [place] [address] 57972- 3496 Dec, Fibromyalgia M79.7 ; Hypertension I10 and Arthritis M19.90 [facility] [id number] [place] [address] 85221- 0273 Dec, [facility] [id number] [place] [address] 40274- 0674 Dec, [facility] [id number] [place] [address] 47302- 2227 Dec, [facility] [id number] [place] [address] 79418- 0075 Dec, [facility] [id number] [place] [address] 72956- 8952 Nov, [facility] [id number] [place] [address] 70654- 3668 Nov, [facility] [id number] [place] [address] 21011- 6925 Nov, [facility] [id number] [place] [address] 74574- 0063 Nov, Hypertension I10 [facility] [id number] [address]- 8553 Oct, [facility] [address] [id number] [place] [address] 46635- 3268 Oct, [facility] [id number] [address]- 3216 Oct, [facility] [id number] [place] [address] 95374- 5466 Oct, [facility] [address] [id number] [place] [address]- 4684 Oct, [facility] [place] [facility] [address] [id number], [place] [address]- 6514 Sep, [facility] [place] [facility] [address] [id number], [place] [address]- 2592 Sep, [facility] [place] [facility] [address] [id number], [place] [address]- 2031 Sep, Hip pain associated with recalled total hip arthroplasty hardware 996.77 [facility] [place] [facility] [address] [id number] [place] [address]- 2500 Sep, [facility] [place] [facility] [address] [facility] [id number] 0598 Sep, [facility] [place] [facility] [address] [facility] [id number], [place] [address]- 5288 Sep, [facility] [place] [facility] [address] [id number], [place] [address]- 1141 Aug, [facility] [place] [facility] [address] [facility] [id number], [place] [address]- 1206 Jul, [facility] [place] [facility] [address] [facility] [id number], [place] [address]- 1940 June, [facility] [place] [facility] [address] [facility] [id number], [place] [address]- 8674 June, [facility] [place] [facility] [address] [id number], [place] [address]- 9248 June, [facility] [place] [facility] [address] [id number] 9472 June, [facility] [place] [facility] [address] [id number], [place] [address]- 9350 June, [facility] [place] [facility] [address] [id number][place] 2312 June, [facility] [place] [facility] [address] [id number] [place] [address]- 7923 30 May, 2014 [facility] [place] [facility] [address] [id number] [place] [address]- 0602 14 May, 2014 [facility] [place] [facility] [address] [id number] [place] [address]- 2725 May, [facility] [place] [facility] [address] [id number] [place] [address]- 5059 30 Apr, 2014 [facility] [place] [facility] [address] [id number] [place] [address]- 6533 30 Apr, 2014 [facility] [place] [facility] [address] [id number] [place] [address]- 7874 Apr, [facility] [place] [facility] [address] [id number] [place] [address]- 5334 Apr, [facility] [place] [facility] [address] [id number] [place] [address]- 2852 Apr, [facility] [place] [facility] [address] [id number] [place] [address]- 2782 Apr, [facility] [place] [facility] [address] [id number] [place] [address]- 1871 Apr, [facility] [place] [facility] [address] [id number], [place] [address]- 1126 Apr, [facility] [place] [facility] [address] [id number], [place] [address]- 1758 Apr, [facility] [place] [facility] [address] [id number] [place] [address]- 4821 Apr, [facility] [place] [facility] [address] [id number] [place] [address]- 1491 Apr, [facility] [place] [facility] [address] [id number] [place] [address]- 1674 Mar, [facility] [place] [facility] [address] [id number] [place] [address]- 5951 26 Mar, 2014 [facility] [place] [facility] [address] [id number] [place] [address]- 3176 Mar, 2014 [facility] [place] [facility] [address] [id number] [place] 3706 16 Mar, 2014 [facility] [place] [facility] [address] [id number] [place] [address]- 1006 Mar, 2014 [facility] [place] [facility] [address] [id number] [place] [address]- 3542 Mar, [facility] [place] [facility] [address] [id number] [place] [address]- 4480 Feb, [facility] [place] [facility] [address] [id number] [place] [address]- 3265 Feb, [facility] [place] [facility] [address] [id number] [place] [address]- 7182 Feb, [facility] [place] [facility] [address] [id number] [place] [address]- 0971 Feb, [facility] [place] [facility] [address] [id number] [place] [address]- 9325 Jan, [facility] [place] [facility] [address] [id number] [place] [address]- 1938 Jan, [facility] [place] [facility] [address] [id number] [place] [address]- 7657 Jan, [facility] [place] [facility] [address] [id number] [place] 7874 Jan, [facility] [place] [facility] [address] [id number] [place] [address]- 0886 Dec, [facility] [place] [facility] [address] [id number] [place] [address]- 2556 Dec, [facility] [place] [facility] [address] [id number] [place] [address]- 5186 Dec, [facility] [place] [facility] [address] [id number] [place] [address]- 3789 Dec, [facility] [place] [facility] [address] [id number] [place] [address]- 0135 Dec, [facility] [place] [facility] [address] [id number] [place] [address]- 0221 Dec, [facility] [place] [facility] [address] [id number] [place] [address]- 0661 Dec, [facility] [place] [facility] [address] [id number] [place] [address]- 4016 Dec, [facility] [place] [facility] [address] [id number] [place] [address]- 0146 Dec, [facility] [place] [facility] [address] [id number] [place] [address]- 5327 Dec, [facility] [place] [facility] [address] [id number] [place] [address]- 9051 Dec, [facility] [place] [facility] [address] [id number] [place] [address]- 3841 Nov, [facility] [place] [facility] [address] [id number] [place] [address]- 5852 Nov, [facility] [place] [facility] [address] [id number] [place] [address]- 9477 28 Nov, 2013 [facility] [place] [facility] [address] [id number], [place] [address]- 8977 Nov, [facility] [place] [facility] [address] [id number] [place] [address]- 9942 17 Nov, 2013 [facility] [place] [facility] [address] [id number], [place] [address]- 6578 15 Nov, 2013 [facility] [place] [facility] [address] [id number] [place] [address]- 5448 15 Nov, 2013 [facility] [place] [facility] [address] [id number] [place] [address]- 8766 15 Nov, 2013 [facility] [place] [facility] [address] [id number] [place] [address]- 2750 15 Nov, 2013 [facility] [place] [facility] [address] [id number] [place] [address]- 8476 14 Nov, 2013 [facility] [place] [facility] [address] [id number] [place] [address]- 9565 14 Nov, 2013 [facility] [place] [facility] [address] [id number] [place] [address]- 0546 14 Nov, 2013 [facility] [place] [facility] [address] [id number] [place] [address]- 7620 14 Nov, 2013 [facility] [place] [facility] [address] [id number] [place] [address]- 1186 13 Nov, 2013 [facility] [place] [facility] [address] [id number] [place] [address]- 1065 13 Nov, 2013 [facility] [place] [facility] [address] [id number] [place] [address]- 6836 11 Nov, 2013 [facility] [place] [facility] [address] [id number] [place] [address]- 5536 11 Nov, 2013 [facility] [place] [facility] [address] [id number] [place] [address]- 4682 07 Nov, 2013 [facility] [place] [facility] [address] [id number] [place] [address]- 6944 07 Nov, 2013 [facility] [place] [facility] [address] [id number], [place] [address]- 0953 07 Nov, 2013 [facility] [place] [facility] [address] [id number] [place] [address]- 5766 07 Nov, 2013 [facility] [place] [facility] [address] [id number] [place] [address]- 4430 30 Oct, 2013 [facility] [place] [facility] [address] [id number] [place] [address]- 1672 30 Sep, 2013 [facility] [place] [facility] [address] [id number] [place] [address]- 3690 26 Oct, 2013 [facility] [place] [facility] [address] [id number] [place] [address]- 7226 26 Oct, 2013 [facility] [place] [facility] [address] [id number] [place] [address]- 8217 Oct, 2013 [facility] [place] [facility] [address] [id number] [place] [address]- 3907 Oct, 2013 [facility] [place] [facility] [address] [id number] [place] [address] 2547 18 Oct, 2013 [facility] [place] [facility] [address] [id number] [place] [address]- 2874 18 Oct, 2013 [facility] [place] [facility] [address] [id number] [place] [address]- 8839 Oct, 2013 [facility] [place] [facility] [address] [id number] [place] [address]- 9045 Oct, 2013 [facility] [place] [facility] [address] [id number] [place] [address]- 4978 Oct, 2013 [facility] [place] [facility] [address] [id number] [place] [address]- 8198 Oct, 2013 [facility] [place] [facility] [address] [id number] [place] [address]- 2802 Oct, 2013 [facility] [place] [facility] [address] [id number] [place] [address]- 2545 Oct, 2013 [facility] [place] [facility] [address] [id number] [place] [address]- 2730 Sep, [facility] [place] [facility] [address] [id number] [place] [address]- 1167 Sep, [facility] [place] [facility] [address] [id number] [place] [address]- 1524 Sep, [facility] [place] [facility] [address] [id number] [place] [address]- 7703 Sep, [facility] [place] [facility] [address] [id number] [place] [address]- 7646 Sep, [facility] [place] [facility] [address] [id number] [place] [address]- 6008 Sep, [facility] [place] [facility] [address] [id number] [place] [address]- 5953 Sep, [facility] [place] [facility] [address] [id number] [place] [address]- 8823 Sep, [facility] [place] [facility] [address] [id number] [place] [address]- 2854 Sep, [facility] [place] [facility] [address] [id number] [place] [address]- 5302 Sep, [facility] [place] [facility] [address] [id number] [place] [address]- 7704 Sep, [facility] [place] [facility] [address] [id number] [place] [address]- 8023 Sep, [facility] [place] [facility] [address] [id number] [place] [address]- 7295 Sep, [facility] [place] [facility] [address] [id number] [place] [address]- 0322 Sep, [facility] [place] [facility] [address] [id number] [place] [address]- 9686 Sep, [facility] [place] [facility] [address] [id number] [place] [address]- 9039 Sep, [facility] [place] [facility] [address] [id number] [place] [address]- 6833 Sep, [facility] [place] [facility] [address] [id number] [place] [address]- 4037 Sep, [facility] [place] [facility] [address] [id number] [place] [address]- 1119 Aug, [facility] [place] [facility] [address] [id number] [place] [address]- 6701 Aug, [facility] [address] [id number] [place] [address]- 2553 Aug, [facility] [place] [facility] [address] [id number] [place] [address]- 2911 Aug, [facility] [address] [id number] [place] [address]- 0443 Aug, [facility] [place] [facility] [address] [id number] [place] [address]- 5540 Aug, [facility] [address] [id number] [place] [address]- 2065 Jul, [facility] [address] [id number] [place] [address]- 6685 Jul, [facility] [address] [id number] [place] [address]- 4732 Jul, [facility] [address] [id number] [place] [address]- 6926 Jul, [facility] [place] [facility] [address] [id number] [place] [address]- 8378 June, [facility] [address] [id number] [place] [address]- 8409 June, [facility] [place] [facility] [address] [id number] [place] [address]- 7781 June, [facility] [place] [facility] [address] [id number] [place] [address]- 8506 June, [facility] [place] [facility] [address] [id number] [place] [address]- 9503 June, [facility] [place] [facility] [address] [id number] [place] [address]- 9756 June, [facility] [place] [facility] [address] [id number] [place] [address]- 4591 June, [facility] [place] [facility] [address] [id number] [place] [address]- 7110 May, [facility] [place] [facility] [address] [id number] [place] [address]- 3142 May, [facility] [place] [facility] [address] [id number] [place] [address]- 2497 May, [facility] [place] [facility] [address] [id number] [place] [address]- 2791 May, [facility] [place] [facility] [address] [id number] [place] [address]- 4622 May, [facility] [place] [facility] [address] [id number] [place] [address]- 3680 May, [facility] [place] [facility] [address] [id number] [place] [address]- 7187 31 Apr, 2013 [facility] [place] [facility] [address] [id number] [place] [address]- 8485 31 Apr, 2013 [facility] [place] [facility] [address] [id number] [place] [address]- 6329 28 Apr, 2013 [facility] [place] [facility] [address] [id number] [place] [address]- 4067 28 Apr, 2013 [facility] [place] [facility] [address] [id number] [place] [address]- 7263 14 Apr, 2013 [facility] [place] [facility] [address] [id number] [place] [address]- 2394 14 Apr, 2013 [facility] [place] [facility] [address] [id number] [place] [address]- 8382 12 Apr, 2013 [facility] [place] [facility] [address] [id number] [place] 5735 12 Apr, 2013 [facility] [place] [facility] [address] [id number] [place] [address]- 4102 10 Apr, 2013 [facility] [place] [facility] [address] [id number], [place] [address]- 6523 Apr, [facility] [place] [facility] [address] [id number] [place] [address]- 6291 Apr, [facility] [place] [facility] [address] [id number] [place] [address]- 9782 Apr, [facility] [place] [facility] [address] [id number] [place] [address]- 8962 Apr, [facility] [place] [facility] [address] [id number] [place] [address]- 5057 Apr, [facility] [place] [facility] [address] [id number] [place] [address]- 0208 Mar, [facility] [place] [facility] [address] [id number] [place] [address]- 9700 Mar, [facility] [place] [facility] [address] [id number] [place] [address]- 3753 Mar, [facility] [place] [facility] [address] [id number] [place] [address]- 2741 Feb, [facility] [place] [facility] [address] [id number] [place] [address]- 6481 Feb, [facility] [place] [facility] [address] [id number] [place] [address] Feb, [facility] [place] [facility] [address] [id number] [place] [address] Feb, [facility] [place] [facility] [address] [id number] [place] [address] Feb, [facility] [place] [facility] [address] [id number] [place] [address] Feb, [facility] [place] [facility] [address] [id number] [place] [address] Feb, [facility] [place] [facility] [address] [id number] [place] [address] Feb, [facility] [place] [facility] [address] [id number] [place] [address] Feb, [facility] [address] [id number] [place] [address] Feb, [facility] [place] [facility] [address] [id number] [place] [address] Jan, [facility] [place] [facility] [address] [id number] [place] [address] Jan, [facility] [place] [facility] [address] [id number] [place] [address] Jan, [facility] [place] [facility] [address] [id number] [place] [address] Jan, [facility] [address] [id number] [place] [address] Jan, [facility] [address] [id number] [place] [address] Jan, [facility] [address] [id number] [place] [address] Jan, [facility] [address] [id number] [place] [address]- 2017 Jan, [facility] [address] [id number] [place] [address] Jan, [facility] [place] [facility] [address] [id number] [place] [address] Jan, [facility] [place] [facility] [address] [id number] [place] [address] 17 Jan, 2013 [facility] [place] [facility] [address] [id number] [place] [address] 17 Jan, 2013 [facility] [place] [facility] [address] [id number] [place] [address]- [address] 16 Jan, 2013 [facility] [place] [facility] [address] [id number] [place] [address]- [address] Jan, [facility] [address] [id number] [place] [address] 1665 Jan, [facility] [place] [facility] [address] [id number] [address] Jan, [facility] [place] [facility] [address] [facility] [id number] [place] [address] Jan, [facility] [place] [facility] [address] [id number], [place] [address] Jan, [facility] [place] [facility] [address] [id number] [place] [address]- [address] Jan, [facility] [place] [facility] [address] [id number] [place] [address] Jan, [facility] [place] [facility] [address] [facility] [id number], [place] [address] Jan, [facility] [place] [facility] [address] [id number], [place] [address] Dec, [facility] [place] [facility] [address] [id number], [place] [address] Dec, [facility] [place] [facility] [address] [id number], [place] [address] Dec, [facility] [place] [facility] [address] [id number], [place] [address] Dec, [facility] [place] [facility] [address] [id number], [place] [address] Dec, [facility] [place] [facility] [address] [id number], [place] [address] Dec, [facility] [place] [facility] [address] [id number], [place] [address] Dec, [facility] [place] [facility] [address] [id number], [place] [address] Dec, [facility] [place] [facility] [address] [id number] [place] [address] Dec, [facility] [place] [facility] [address] [id number] [place] [address] Dec, [facility] [place] [facility] [address] [id number] [place] [address] Nov, [facility] [place] [facility] [address] [id number] [place] [address] Nov, [facility] [place] [facility] [address] [id number] [place] [address] Nov, [facility] [place] [facility] [address] [id number] [place] [address] Nov, [facility] [place] [facility] [address] [id number] [place] [address] Nov, [facility] [place] [facility] [address] [id number] [place] [address] Nov, [facility] [place] [facility] [address] [id number] [place] [address]- [address] Nov, [facility] [place] [facility] [address] [id number] [place] [address] Nov, [facility] [place] [facility] [address] [id number] [place] [address] Nov, [facility] [place] [facility] [address] [id number] [place] [address] Nov, [facility] [place] [facility] [address] [id number] [place] [address] Oct, [facility] [place] [facility] [address] [id number] [place] [address] 39[address] Oct, [facility] [place] [facility] [address] [id number] [place] [address] Oct, [facility] [place] [facility] [address] [id number] [place] [address] Oct, [facility] [place] [facility] [address] [id number] [place] [address] Oct, [facility] [address] [id number] [place] [address]- [address] Sep, [facility] [address] [id number] [place] [address]- [address] Sep, [facility] [address] [id number] [place] [address] Aug, [facility] [address] [id number] [place] [address] Aug, [facility] [address] [id number] [place] [address]- [address] Aug, [facility] [address] [id number] [place] [address] Aug, [facility] [address] [id number] [place] [address] Aug, [facility] [address] [id number] [place] [address] Aug, [facility] [address] [id number] [place] [address] Aug, [facility] [address] [id number] [place] [address] Jul, [facility] [address] [id number] [place] [address] Jul, [facility] [address] [id number] [place] [address] 7163 June, [facility] [place] [facility] [address] [id number] [place] [address] 3666 June, [facility] [address] [id number] [place] [address] 25[address] June, [facility] [address] [id number] [place] [address] 0471 June, [facility] [address] [id number] [place] [address] 3029 June, [facility] [address] [id number] [place] [address] 8409 June, [facility] [address] [id number] [place] [address] 6098 June, [facility] [address] [id number] [place] [address]- 477[address] June, [facility] [address] [id number] [place] [address] 5421 June, [facility] [address] [id number] [place] [address] June, [facility] [address] [id number] [place] [address] June, [facility] [address] [id number] [place] [address] 3740 May, [facility] [address] [id number] [place] [address]- 1503 May, [facility] [address] [id number] [place] [address]- 3472 May, [facility] [address] [id number] [place] [address] 8813 May, [facility] [place] [facility] [address] [id number] [place] [address]- 9799 Apr, [facility] [place] [facility] [address] [id number] [place] [address]- 9264 Apr, [facility] [place] [facility] [address] [id number] [place] [address]- 0609 Apr, [facility] [place] [facility] [address] [id number] [place] [address] 8308 Mar, [facility] [place] [facility] [address] [id number] [place] [address] 8356 11 Mar, 2012 [facility] [address] [id number] [place] [address]- 0626 Feb, [facility] [place] [facility] [address] [id number] [place] [address] 1996 Feb, [facility] [address] [id number] [place] [address]- 0846 Feb, [facility] [place] [facility] [address] [id number] [place] [address]- 4466 Feb, [facility] [address] [id number] [place] [address]- 1416 Feb, [facility] [address] [id number] [place] [address]- 3266 Feb, [facility] [address] [id number] [place] [address]- 0544 Feb, [facility] [address] [id number] [place] [address]- 7822 Jan, [facility] [address] [id number] [place] [address]- 0976 31 Jan, 2012 [facility] [address] [id number] [place] [address]- 2052 Jan, [facility] [address] [id number] [place] [address] 2076 17 Jan, 2012 [facility] [address] [id number] [place] [address]- 2546 17 Jan, 2012 [facility] [place] [facility] [address] [id number] [place] [address] 0366 Jan, [facility] [place] [facility] [address] [id number] [place] [address]- 1806 Jan, [facility] [place] [facility] [address] [id number] [place] [address]- 2446 Jan, [facility] [place] [facility] [address] [id number] [place] [address]- 6633 Jan, [facility] [place] [facility] [address] [id number] [place] [address]- 3673 Jan, [facility] [place] [facility] [address] [id number] [place] [address] Jan, [facility] [place] [facility] [address] [id number] [place] [address]- 3482 Dec, [facility] [place] [facility] [address] [id number] [place] [address]- 6028 Dec, [facility] [place] [facility] [address] [id number] [place] [address]- 8945 Dec, [facility] [place] [facility] [address] [id number] [place] [address]- 1808 Dec, [facility] [place] [facility] [address] [id number] [place] [address]- 9151 Nov, [facility] [place] [facility] [address] [id number] [place] [address]- 0347 Nov, [facility] [place] [facility] [address] [id number], [place] [address] 2093 Nov, [facility] [place] [facility] [address] [id number], [place] [address] 8917 27 Oct, 2011 [facility] [place] [facility] [address] [id number], [place] [address] 24 Sep2011 [facility] [place] [facility] [address] [id number] [place] [address]- 7643 21 Sep2011 [facility] [place] [facility] [address] [id number] [place] [address] 1080 10 Oct, 2011 [facility] [place] [facility] [address] [id number] [place] [address]- 2665 07 Oct, 2011 [facility] [place] [facility] [address] [id number] [place] [address]- 3838 04 Oct, 2011 [facility] [place] [facility] [address] [id number] [place] [address]- 0256 Oct, [facility] [place] [facility] [address] [id number] [place] [address]- 1406 Sep, [facility] [place] [facility] [address] [id number] [place] [address]- 7906 Sep, [facility] [place] [facility] [address] [id number] [place] [address]- 8823 Sep, [facility] [place] [facility] [address] [id number] [place] [address]- 1342 Sep, [facility] [place] [facility] [address] [id number] [place] [address]- 7686 Sep, [facility] [place] [facility] [address] [id number] [place] [address]- 9040 Aug, [facility] [place] [facility] [address] [id number] [place] [address]- 5215 Aug, [facility] [place] [facility] [address] [id number] [place] [address]- 1642 Aug, [facility] [place] [facility] [address] [id number] [place] [address]- 9801 Aug, [facility] [place] [facility] [address] [id number] [place] [address]- 9115 Aug, [facility] [place] [facility] [address] [id number] [place] [address]- 8239 Aug, [facility] [place] [facility] [address] [id number] [place] [address]- 1095 Aug, [facility] [place] [facility] [address] [id number] [place] [address]- 0390 Jul, [facility] [place] [facility] [address] [id number] [place] [address]- 8476 Jul, [facility] [place] [facility] [address] [id number] [place] [address]- 3101 Jul, [facility] [place] [facility] [address] [id number] [place] [address]- 0180 Jul, [facility] [place] [facility] [address] [id number] [place] [address]- 0358 Jul, [facility] [place] [facility] [address] [id number] [place] [address]- 2098 Jul, [facility] [place] [facility] [address] [id number] [place] [address]- 4184 07 Jul, 2011 [facility] [place] [facility] [address] [id number] [place] [address]- 8157 Jul, [facility] [place] [facility] [address] [id number] [place] [address]- 0924 Jul, [facility] [place] [facility] [address] [id number] [place] [address]- 7448 June, [facility] [place] [facility] [address] [id number] [place] [address]- 3943 June, [facility] [place] [facility] [address] [id number] [place] [address]- 1412 June, [facility] [place] [facility] [address] [id number] [place] [address]- 6572 June, [facility] [place] [facility] [address] [id number] [place] [address]- 1511 June, [facility] [place] [facility] [address] [id number] [place] [address]- 6436 June, [facility] [place] [facility] [address] [id number] [place] [address]- 8947 June, [facility] [place] [facility] [address] [id number] [place] [address]- 5846 June, [facility] [place] [facility] [address] [id number] [place] [address]- 1556 May, [facility] [place] [facility] [address] [id number] [place] [address]- 3813 May, [facility] [place] [facility] [address] [id number] [place] [address]- 3056 May, [facility] [place] [facility] [address] [id number] [place] [address]- 9057 May, [facility] [place] [facility] [address] [id number] [place] [address]- 5190 May, [facility] [place] [facility] [address] [id number] [place] [address]- 0039 May, [facility] [place] [facility] [address] [id number] [place] [address] May, [facility] [place] [facility] [address] [id number] [place] [address]- 3718 Apr, [facility] [place] [facility] [address] [id number] [place] [address]- 2183 Apr, [facility] [place] [facility] [address] [id number] [place] [address]- 1170 Apr, [facility] [place] [facility] [address] [id number] [place] [address]- 7782 Apr, [facility] [place] [facility] [address] [id number] [place] [address]- 6451 Apr, [facility] [place] [facility] [address] [id number] [place] [address]- 6619 Apr, [facility] [place] [facility] [address] [id number] [place] [address]- 4306 Apr, [facility] [place] [facility] [address] [id number] [place] [address]- 5769 Mar, [facility] [place] [facility] [address] [id number] [place] [address]- 2678 Mar, [facility] [place] [facility] [address] [id number] [place] [address]- 5421 14 Mar, 2011 [facility] [address] [id number] [place] [address]- 7436 13 Mar, 2011 [facility] [place] [facility] [address] [id number] [place] [address]- 4326 09 Mar, 2011 [facility] [address] [id number] [place] [address]- 3626 08 Mar, 2011 [facility] [address] [id number] [place] [address] 2542 Mar, [facility] [address] [id number] [place] [address]- 3064 Feb, [facility] [address] [id number] [place] [address]- 8390 Feb, [facility] [address] [id number] [place] [address]- 8355 Feb, [facility] [address] [id number] [place] [address]- 2673 Feb, [facility] [address] [id number] [place] [address]- 4534 Feb, [facility] [address] [id number] [place] [address]- 9827 Feb, [facility] [address] [id number] [place] [address]- 6030 Feb, [facility] [place] [facility] [address] [id number] [place] [address]- 4400 Feb, [facility] [place] [facility] [address] [id number] [place] [address]- 8224 Feb, [facility] [place] [facility] [address] [id number] [place] [address]- 0345 Feb, [facility] [place] [facility] [address] [id number] [place] [address]- 7427 27 Jan, 2011 [facility] [place] [facility] [address] [id number] [place] [address]- 6219 Jan, [facility] [place] [facility] [address] [id number] [place] [address]- 7896 Jan, [facility] [place] [facility] [address] [id number] [place] [address]- 6226 Jan, [facility] [place] [facility] [address] [id number] [place] [address]- 3565 Jan, [facility] [place] [facility] [address] [id number] [place] [address]- 6830 Jan, [facility] [place] [facility] [address] [id number] [place] [address]- 4961 Jan, [facility] [place] [facility] [address] [id number] [place] [address]- 3339 Jan, [facility] [place] [facility] [address] [id number] [place] [address]- 5259 Jan, [facility] [place] [facility] [address] [id number] [place] [address]- 0674 Jan, [facility] [place] [facility] [address] [id number] [place] [address]- 2945 Jan, [facility] [place] [facility] [address] [id number] [place] [address]- 6127 17 Dec, 2010 [facility] [place] [facility] [address] [id number], [place] [address]- 8540 17 Dec, 2010 [facility] [place] [facility] [address] [id number] [place] [address]- 9590 17 Dec, 2010 [facility] [place] [facility] [address] [id number] [place] [address]- 7111 16 Dec, 2010 [facility] [place] [facility] [address] [id number] [place] [address]- 9528 14 Dec, 2010 [facility] [place] [facility] [address] [id number] [place] [address]- 3294 09 Dec, 2010 [facility] [address] [id number] [place] [address]- 1801 Dec, [facility] [place] [facility] [address] [id number] [place] [address] Dec, [facility] [address] [id number] [place] [address]- 3484 Dec, [facility] [place] [facility] [address] [id number] [place] [address]- 2859 Nov, [facility] [address] [id number] [place] [address]- 6637 Nov, [facility] [place] [facility] [address] [id number] [place] [address]- 4211 Nov, [facility] [address] [id number] [place] [address]- 3221 Nov, [facility] [address] [id number] [place] [address]- 3881 24 Nov, 2010 [facility] [place] [facility] [address] [id number] [place] [address]- 0565 Nov, [facility] [address] [id number] [place] [address]- 3415 Aug, [facility] [place] [facility] [address] [id number] [place] [address]- 4753 14 Feb, 2010 [facility] [place] [facility] [address] [id number] [place] [address]- 8745 14 Jan, 2010 [facility] [place] [facility] [address] [id number] [place] [address]- 3071 Jan, [facility] [place] [facility] [address] [id number] [place] [address]- 5599 Jan, [facility] [place] [facility] [address] [id number] [place] [address]- 0838 Jan, [facility] [address] [id number], [place] [address]886 Jan, [facility] [id number], [place] [address]- 0568 Dec, [facility] [id number], [place] [address]- 7356 Dec, [facility] [id number], [place] [address]- 2378 Dec, [facility] [address] [id number], [place] [address]- 1802 Dec, [facility] [id number] [address] Nov, [facility] [id number], [place] [address]- 0841 Nov, [facility] [id number], [place] [address]- 0895 Nov, IMMUNIZATIONS No Known Immunizations SOCIAL HISTORY Never Assessed REASON FOR VISIT f/u PLAN OF CARE Activity Details Follow Up 1 Week Reason:Anxiety, depresson, psychotic features VITAL SIGNS MEDICATIONS Medication Instructions Dosage Frequency Start Date End Date Duration Status Furosemide 20 MG Orally Once a day ONE TABLET 24h 30 Unknown Clonidine HCl 0.1 MG Orally twice a day 1 tablet 12h 30 Unknown Tizanidine HCl 4 MG Orally Three times a day 1 tablet as needed 8h May, Unknown Nabumetone 500 MG Orally Twice a day 1 tablet 12h 30 Unknown Aspirin 81 MG Orally Once a day 1 tablet 24h 30 Unknown Pantoprazole Sodium 40 mg Orally Once a day 1 tablet 24h 30 days Unknown Sumatriptan Succinate 100 mg Orally Once a day 1 tablet as needed one time 24h 30 Unknown Promethazine HCl 25 MG Orally every 12 hrs 1 tablet as needed 12h 30 Unknown Fentanyl 50 MCG/HR Transdermal 72hrs 1 patch to skin Mar, 30 days Unknown Lyrica 150 MG Orally 3 times a day 1 capsule 8h 28 days Unknown Klonopin 1 MG Orally 3 times a day 1 tablet 8h 05 days Unknown Fluoxetine HCl 40 mg Orally Once a day 2 capsule in the morning 24h 30 Unknown Abilify 2 MG Orally Once a day 2 tablets 24h 30 days Unknown RESULTS No Results PROCEDURES Procedure Date Ordered Result Body Site Psychotherapy, patient &/family, 30 minutes, established patient May 15, 2017 INSTRUCTIONS MEDICATIONS ADMINISTERED No Known Medications [...]
--- OUTSIDE RECORDS SUMMARY | 2018-01-13 21:02 | XMS REPORT ---
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 Active 676059952 Problem Hypertension I10 Active 26018669 Problem Arthritis M19.90 Active 8415597 Problem 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 Active 22825258 Problem Anxiety F41.9 Active 44297166 Problem Unspecified episodic mood disorder F39 Active 37955356 Problem Left hip pain M25.552 Active 29204879 ALLERGIES Substance Reaction Event Type Date Status Propranolol HCl chest pain, headache Drug Allergy Apr, Active Bactrim unknown Drug Allergy Apr, Active Penicillins unknown Non Drug Allergy Apr, Active ENCOUNTERS Encounter Location Date Diagnosis [facility] [address] [id number] [id number] Aug, [facility] [address] [facility] [id number] [address] Aug, Arthritis M19.90 [facility] [id number] [place] [address] 95596- 7624 Aug, [facility] [id number] [place] [address] 82550- 5394 Aug, Obesity (BMI 30.0-34.9) E66.9 ; Unspecified episodic mood disorder F39 and Hypertension I10 [facility] [id number] [place] [address] 78891- 4050 Aug, Unspecified episodic mood disorder F39 [facility] [id number] [place] [address] 28099- 8772 Aug, [facility] [id number] [place] [address] 01141- 3031 Jul, Unspecified episodic mood disorder F39 [facility] [id number] [place] [address] 74007- 7410 Jul, [facility] [id number] [place] [address] 12224- 4305 Jul, Arthritis M19.90 [facility] [id number] [place] [address] 70659- 7001 Jul, Left hip pain M25.552 ; Hypertension I10 ; Other obesity due to excess calories E66.09 and Body mass index (BMI) of 34.0-34.9 in adult Z68.34 [facility] [id number] [place] [address] 52182- 6905 Jul, Unspecified episodic mood disorder F39 [facility] [id number] [place] [address] 98157- 6504 June, Gastroesophageal reflux disease, esophagitis presence not specified K21.9 [facility] [id number] [place] [address] 67287- 0592 June, [facility] [id number] [place] [address] 05333- 1327 June, [facility] [address] [address] 62[address] June, Arthritis M19.90 [facility] [id number] [place] [address] 66130- 5334 June, [facility] [id number] [place] [address] 40719- 7032 June, [facility] [id number] [place] [address] 81640- 9647 June, Unspecified episodic mood disorder F39 [facility] [id number] [place] [address] 84797- 4138 May, Unspecified episodic mood disorder F39 [facility] [id number] [place] [address] 50403- 4178 May, [facility] [id number] [place] [address] 65369- 7692 May, Arthritis M19.90 [facility] [id number] [place] [address] 99480 -7750 May, Dysuria R30.0 ; Abscess L02.91 and Acute cystitis without hematuria N30.00 [facility] [address] [address] 8410 May, Other disorder of impulse control F63.89 ; Unspecified episodic mood disorder F39 ; Combined drug dependence excluding opioids, 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 ; Anxiety F41.9 and Other psychoactive substance dependence, 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 [facility] [address] [address] 5359 May, [facility] [id number] [place] [address] 25384- 5094 May, Other disorder of impulse control F63.89 ; Unspecified episodic mood disorder F39 ; Combined drug dependence excluding opioids, 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 ; Other psychoactive substance dependence, 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 and Anxiety F41.9 [facility] [id number] [place] [address] 64783- 7773 May, Other chronic pain G89.29 ; Left hip pain M25.552 ; Hypertension I10 ; 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, 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 and Unspecified episodic mood disorder F39 [facility] [id number] [place] [address] 54530- 2142 Apr, [facility] [id number] [place] [address] 02542 -6837 Apr, Neck pain M54.2 ; Left hip pain M25.552 and Fall, initial encounter W19.XXXA [facility] [address] 37046- 6754 Apr, Unspecified episodic mood disorder F39 ; Combined drug dependence excluding opioids, 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 ; Anxiety F41.9 ; Other psychoactive substance dependence, 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 and Other disorder of impulse control F63.89 [facility] [id number] [place] [address] 86240- 0129 Apr, [facility] [address] 05502- 1985 Apr, Arthritis M19.90 and Unspecified episodic mood disorder F39 [facility] [id number] [place] [address] 88710- 2829 Apr, Unspecified episodic mood disorder F39 [facility] [id number] [place] [address] 72162- 8204 Apr, [facility] [id number] [place] [address] 90575- 3884 08 Apr, 2017 [place] [id number] [place] [address] 99837- 9728 07 Apr, 2017 Unspecified episodic mood disorder F39 ; Combined drug dependence excluding opioids, 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 ; Anxiety F41.9 ; Other psychoactive substance dependence, 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 and Other disorder of impulse control F63.89 [facility] [address] [address] 5256 Mar, Unspecified episodic mood disorder F39 [facility] [id number] [place] [address] 31845- 1286 Mar, Gastroesophageal reflux disease, esophagitis presence not specified K21.9 [facility] [id number] [place] [address] 45033- 8076 Mar, Arthritis M19.90 and Unspecified episodic mood disorder F39 [facility] [id number] [place] [address] 77291- 4586 Feb, [facility] [id number] [place] [address] 64808- 5086 Feb, [facility] [id number] [place] [address] 65626- 1936 Feb, [facility] [id number] [place] [address] 43279 2544 Feb, Arthritis M19.90 [facility] [id number] [place] [address] 77919- 5748 Feb, Non-pressure chronic ulcer of right calf, 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 ; Unspecified episodic mood disorder F39 and Left hip pain M25.552 [facility] [id number] [place] [address] 19044- 2726 Feb, [facility] [id number] [place] [address] 80201 2546 Feb, [facility] [id number] [place] [address] 18172 2546 Jan, Arthritis M19.90 [facility] [address] [place] [address] 92065- 2546 Jan, Left hip pain M25.552 and Non-pressure chronic ulcer of right calf, 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 [facility] [id number] [place] [address] 90484- 6530 Jan, Chronic hepatitis C without hepatic coma B18.2 [facility] [id number] [place] [address] 56547- 0005 Jan, Encounter for immunization Z23 ; Venous insufficiency ( chronic) (peripheral) I87.2 ; Non-pressure chronic ulcer of unspecified calf limited to breakdown of skin L97.201 and Gastroesophageal reflux disease, esophagitis presence not specified K21.9 [facility] [id number] [place] [address] 69211- 9167 Jan, [facility] [id number] [place] [address] 98752- 8825 Jan, Chronic hepatitis C without hepatic coma B18.2 and Encounter for immunization Z23 [facility] [id number] [place] [address] 37991- 9009 Jan, Arthritis M19.90 [facility] [id number] [place] [address] 89607- 7159 Jan, [facility] [id number] [place] [address] 47731- 9088 Dec, [facility] [id number] [place] [address] 67960- 6842 Dec, Unspecified episodic mood disorder F39 [facility] [id number] [place] [address] 57572- 6651 Dec, Arthritis M19.90 [facility] [id number] [place] [address] 39413- 6642 Dec, Arthritis M19.90 [facility] [id number] [place] [address] 31246- 1250 Nov, [facility] [id number] [place] [address] 86798- 3079 Nov, [facility] [id number] [place] [address] 40104- 1760 Nov, Other psychoactive substance dependence, 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 ; 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, 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 and Chronic hepatitis C without hepatic coma B18.2 [facility] [id number] [place] [address] 99506- 1776 Nov, Arthritis M19.90 [facility] [id number] [place] [address] 40254 -4996 Oct, Partial thickness burn of abdomen, initial encounter T21.22XA [facility] [id number] [place] [address] 33253- 0214 Oct, [facility] [id number] [place] [address] 92452- 4473 Sep, Arthritis M19.90 [facility] [id number] [place] [address] 32449- 4078 Sep, [facility] [id number] [place] [address] 70042- 6200 Sep, [facility] [id number] [place] [address] 61091- 4424 Sep, Unspecified episodic mood disorder F39 ; Chronic hepatitis C without hepatic coma B18.2 and Left hip pain M25.552 [facility] [id number] [place] [address] 47537- 6541 Sep, Arthritis M19.90 and Left hip pain M25.552 [facility] [id number] [place] [address] 78504- 8956 Aug, [facility] [id number] [place] [address] 16436- 3947 Aug, [facility] [id number] [place] [address] 54980- 9794 Aug, Chronic hepatitis C without hepatic coma B18.2 [facility] [id number] [place] [address] 58428- 9375 Aug, [facility] [id number] [place] [address] 90247- 6464 Aug, Chronic hepatitis C without hepatic coma B18.2 [facility] [id number] [place] [address] 84629- 7496 Aug, 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, 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 [facility] [id number] [place] [address] 01281- 7762 Aug, [facility] [id number] [place] [address] 68137- 4428 Aug, Chronic hepatitis C without hepatic coma B18.2 and Hypertension I10 [facility] [id number] [place] [address] 13294- 3838 Jul, [facility] [id number] [place] [address] 51673- 1610 June, [facility] [id number] [place] [address] 34096- 3400 Apr, Fibromyalgia M79.7 ; Left hip pain M25.552 and Decubitus ulcer of sacral region, stage 1 L89.151 [facility] [id number] [place] [address] 56110- 5952 Apr, [facility] [id number] [place] [address] 05667- 9586 Apr, [facility] [id number] [place] [address] 98110- 2969 Feb, [facility] [id number] [place] [address] 76217- 5673 Dec, Anxiety F41.9 ; Combined drug dependence excluding opioids, 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 and Unspecified episodic mood disorder F39 [facility] [id number] [place] [address] 12332- 4130 Dec, [facility] [id number] [place] [address] 64372- 9385 Nov, [facility] [id number] [place] [address] 52593- 8279 Nov, [facility] [id number] [place] [address] 82087- 6620 Nov, Other disorder of impulse control F63.89 and Anxiety F41.9 [facility] [id number] [place] [address] 47629- 5399 Oct, [facility] [id number] [place] [address] 15532 -6767 14 Oct, 2015 Open wound of left thigh, initial encounter S71.102A [facility] [id number] [place] [address] 78056- 1473 Oct, [facility] [id number] [place] [address] 83195- 0986 Sep, Unspecified episodic mood disorder F39 ; Other disorder of impulse control 312.39 ; Combined drug dependence excluding opioids, 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 and Anxiety F41.9 [facility] [id number] [place] [address] 20817- 2559 Sep, Other disorder of impulse control 312.39 ; Combined drug dependence excluding opioids, 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 ; Anxiety F41.9 and Unspecified episodic mood disorder F39 [facility] [id number] [place] [address] 52372- 1945 Sep, Other chronic pain G89.29 [facility] [id number] [place] [address] 52177- 3076 Sep, [facility] [id number] [place] [address] 22328- 4656 Sep, [facility] [id number] [place] [address] 26020- 1341 Aug, [facility] [id number] [place] [address] 90099- 8317 Aug, [facility] [address] [address]- 0049 Aug, [facility] [id number] [place] [address] 67858- 9390 Jul, [facility] [id number] [place] [address] 05555- 1090 Jul, [facility] [id number] [place] [address] 08859- 4323 Jul, [facility] [address] [place] [address] 19935- 3331 Jul, Arthritis M19.90 ; Chronic hepatitis C without hepatic coma B18.2 and Left hip pain M25.552 [facility] [id number] [place] [address] 54774- 1473 Jul, Left knee pain M25.562 [facility] [id number] [place] [address] 18802- 9061 Jul, Combined drug dependence excluding opioids, 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 ; Anxiety F41.9 ; Other disorder of impulse control 312.39 and Unspecified episodic mood disorder F39 [facility] [address] [address]- 3884 Jul, Left knee pain M25.562 [facility] [id number] [place] [address] 29090- 8096 Jul, Left knee pain M25.562 and Left hip pain M25.552 [facility] [address] [place] [address] 31117- 6445 Jul, [facility] [id number] [place] [address] 62803- 4577 June, [facility] [address] [address]- 0751 June, Combinations of drug dependence excluding opioid type drug, unspecified abuse 304.80 ; Other disorder of impulse control 312.39 ; Unspecified episodic mood disorder F39 and Anxiety F41.9 [facility] [id number] [place] [address] 40819- 4982 June, Other fatigue R53.83 ; Headache R51 and Left knee pain M25.562 [facility] [id number] [place] [address] 54041- 8453 June, Unspecified episodic mood disorder F39 ; Combinations of drug dependence excluding opioid type drug, unspecified abuse 304.80 ; Other disorder of impulse control 312.39 and Anxiety F41.9 [facility] [id number] [place] [address] 70462- 9439 June, Anxiety F41.9 [facility] [id number] [place] [address] 41500- 9938 June, Pain in left knee M25.562 [facility] [id number] [place] [address] 15722- 4367 June, Anxiety F41.9 and Combinations of drug dependence excluding opioid type drug, unspecified abuse 304.80 [facility] [id number] [place] [address] 16951- 3691 June, Unspecified episodic mood disorder 296.90 ; Combinations of drug dependence excluding opioid type drug, unspecified abuse 304.80 and Other disorder of impulse control 312.39 [facility] [id number] [place] [address] 65560- 2460 June, Anxiety F41.9 and Unspecified episodic mood disorder 296.90 [facility] [id number] [place] [address] 13110- 0371 May, Arthritis M19.90 [facility] [id number] [place] [address] 23386- 1086 May, Arthritis M19.90 [facility] [id number] [place] [address] 81829- 0498 May, Anxiety F41.9 ; Combinations of drug dependence excluding opioid type drug, unspecified abuse 304.80 and Other disorder of impulse control 312.39 [facility] [address] [address]- 5310 18 May, 2015 Left knee pain M25.562 [facility] [address] [address]- 7459 May, Arthritis M19.90 [facility] [id number] [place] [address] 59414- 2332 May, [facility] [address] [place] [address] 76304- 8983 May, Anxiety F41.9 ; Unspecified episodic mood disorder 296.90 ; Combinations of drug dependence excluding opioid type drug, unspecified abuse 304.80 and Other disorder of impulse control 312.39 [facility] [id number] [place] [address] 37109- 6889 May, Left knee pain M25.562 [facility] [address] [place] [address] 73149- 9305 May, Left knee pain M25.562 ; Combinations of drug dependence excluding opioid type drug, unspecified abuse 304.80 ; Other disorder of impulse control 312.39 ; Fibromyalgia M79.7 ; Hypertension I10 ; Unspecified episodic mood disorder 296.90 and Left hip pain M25.552 [facility] [address] [place] [address] 10704- 1433 May, Unspecified episodic mood disorder 296.90 ; Other disorder of impulse control 312.39 ; Combinations of drug dependence excluding opioid type drug, unspecified abuse 304.80 and Anxiety F41.9 [facility] [address] [place] [address] 40640- 6457 May, Left knee pain M25.562 ; Combinations of drug dependence excluding opioid type drug, unspecified abuse 304.80 ; Other disorder of impulse control 312.39 ; Fibromyalgia M79.7 ; Hypertension I10 ; Unspecified episodic mood disorder 296.90 and Left hip pain M25.552 [facility] [address] [address]- 5691 04 May, 2015 Anxiety F41.9 ; Unspecified episodic mood disorder 296.90 ; Other disorder of impulse control 312.39 and Combinations of drug dependence excluding opioid type drug, unspecified abuse 304.80 [facility] [address] [address]- 7698 30 Apr, 2015 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 and 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, implants and grafts, initial encounter T84.82XA [facility] [id number] [place] [address] 66989- 2321 Apr, Anxiety F41.9 ; Unspecified episodic mood disorder 296.90 ; Combinations of drug dependence excluding opioid type drug, unspecified abuse 304.80 and Other disorder of impulse control 312.39 [facility] [id number] [place] [address] 43902- 1382 Apr, Arthritis M19.90 [facility] [id number] [place] [address] 93927- 8954 Apr, Anxiety F41.9 ; Unspecified episodic mood disorder 296.90 ; Combinations of drug dependence excluding opioid type drug, unspecified abuse 304.80 and Other disorder of impulse control 312.39 [facility] [address] [address]- 7528 17 Apr, 2015 Arthritis M19.90 [facility] [address] [address]- 4415 15 Apr, 2015 [facility] [address] [address]- 5768 15 Apr, 2015 [facility] [id number] [place] [address] 79996- 5923 14 Apr, 2015 Unspecified episodic mood disorder 296.90 ; Combinations of drug dependence excluding opioid type drug, unspecified abuse 304.80 ; Other disorder of impulse control 312.39 and Anxiety F41.9 [facility] [id number] [place] [address] 71523 -4817 Apr, Left knee pain M25.562 [facility] [id number] [place] [address] 96158- 6285 Apr, [facility] [id number] [place] [address] 95910- 1968 Mar, Unspecified episodic mood disorder 296.90 ; Anxiety F41.9 ; Other disorder of impulse control 312.39 and Combinations of drug dependence excluding opioid type drug, unspecified abuse [address] [place] [id number] [place] [address] 21009- 7400 Mar, Hyperpigmentation L81.9 [place] [id number] [place] [address] 87959- 9976 Mar, Arthritis M19.90 and Anxiety F41.[address] 41136- 8597 Mar, Unspecified episodic mood disorder F39 ; Combined drug dependence excluding opioids, 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 ; Other disorder of impulse control F63.89 and Anxiety F41.9 [place] [id number] [place] [address] 18995- 6437 12 Mar, 2015 Well woman exam Z01.419 ; Other fatigue R53.83 ; Hot flashes N95.1 ; Depression, unspecified depression type F32.9 and Body mass index (BMI) of 23.0-23.9 in adult Z68.23 [place] [id number] [place] [address] 74633- 8904 11 Mar, 2015 Unspecified episodic mood disorder 296.90 ; Other disorder of impulse control 312.39 and Anxiety F41.9 [place] [id number] [place] [address] 26178- 6362 11 Mar, 2015 Well woman exam Z01.419 [...] of breast Z12.39 and Limited mobility Z74.09 [place] [address] 47099- 6685 Mar, [address] 79481- 7962 Mar, [address] 23783- 0161 Mar, [address] 81165- 5632 Mar, Other specified complication of internal orthopedic prosthetic devices, implants and grafts, initial encounter T84.89XA ; Fibromyalgia M79.7 ; Hypertension I10 ; Anemia D64.9 ; Insomnia G47.00 ; Anxiety F41.9 ; Arthritis M19.90 and Migraine G43.909 [address] [id number] [place] [address] 79337- 3584 Mar, [place] [address] 69637- 9842 Feb, [address] 28422- 3842 Feb, Arthritis M19.90 and Anxiety F41.9 [place] [address] 41743- 7080 Feb, [place] [address] 90572- 2125 Feb, [facility] [address] [facility] [id number] [place] [address]- 6635 Feb, [facility] [id number] [address]- 1446 Feb, [facility] [id number] [address]- 2989 18 Feb, 2015 Anxiety F41.9 [facility] [id number] [place] [address], [place] [address]- 6100 15 Feb, 2015 [facility] [address] [id number] [address]- 4728 Feb, [facility] [id number] [address]- 2088 07 Feb, 2015 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 and Fibromyalgia M79.7 [facility] [id number] [address]- 1855 Feb, [facility] [id number] [address]- 8729 Jan, [facility] [id number] [address]- 4645 Jan, [facility] [id number] [address]- 2200 Jan, [facility] [address] [id number] [address]- 9646 24 Jan, 2015 [facility] [address] [id number] [address]- 2541 16 Jan, 2015 [facility] [address] [id number] [address]- 4494 08 Jan, 2015 [facility] [address] [id number] [address]- 9547 07 Jan, 2015 [facility] [address] [id number] [address]- 1801 Jan, [facility] [id number] [address] Dec, [facility] [id number] [place] [address] 53239- 1199 Dec, Left knee pain M25.562 [facility] [id number] [place] [address] 48718- 0488 Dec, Left knee pain M25.562 [facility] [id number] [place] [address] 03692- 0370 Dec, Fibromyalgia M79.7 ; Hypertension I10 and Arthritis M19.90 [facility] [id number] [place] [address] 40382- 6556 Dec, [facility] [id number] [place] [address] 03367- 1125 Dec, [facility] [id number] [place] [address] 13852- 5130 Dec, [facility] [id number] [place] [address] 93970- 5303 Dec, [facility] [id number] [place] [address] 91862- 9877 Nov, [facility] [id number] [place] [address] 48565- 0485 Nov, [facility] [id number] [place] [address] 75569- 9246 Nov, [facility] [id number] [place] [address] 33131- 4645 Nov, Hypertension I10 [facility] [id number] [place] [address] 35686- 5505 Oct, [facility] [id number] [place] [address] 25954- 4311 Oct, [facility] [id number] [place] [address] 51909- 7961 Oct, [facility] [place] [facility] [address] [id number] [place] [address]- 9959 Oct, [facility] [place] [facility] [address] [id number] [place] [address]- 2737 Oct, [facility] [place] [facility] [address] [id number] [place] [address]- 5112 Sep, [facility] [place] [facility] [address] [id number] [place] [address]- 9940 Sep, [facility] [address] [id number] [place] 7235 Sep, Hip pain associated with recalled total hip arthroplasty hardware 996.77 [facility] [address] [id number] [place] [address]- 3329 Sep, [facility] [place] [facility] [address] [facility] [id number] [place] [address]- 4980 Sep, [facility] [place] [facility] [address] [facility] [id number] [place] [address]- 4987 Sep, [facility] [place] [facility] [address] [id number] [place] [address]- 3680 Aug, [facility] [place] [facility] [address] [facility] [id number] [place] [address]- 5038 Jul, [facility] [place] [facility] [address] [facility] [id number] [place] [address]- 8456 June, [facility] [place] [facility] [address] [id number] [place] [address]- 0126 June, [facility] [place] [facility] [address] [id number] [place] 8055 June, [facility] [place] [facility] [address] [facility] [id number] [place] [address]- 8936 June, [facility] [place] [facility] [address] [facility] [id number] [place] 0267 June, [facility] [place] [facility] [address] [id number] [place] [address]- 9204 June, [facility] [place] [facility] [address] [id number] [place] [address]- 4553 May, [facility] [place] [facility] [address] [id number] [place] [address]- 8186 May, [facility] [place] [facility] [address] [id number] [place] [address]- 9590 May, [facility] [place] [facility] [address] [id number] [place] [address]- 8610 Apr, [facility] [place] [facility] [address] [id number] [place] [address]- 2623 Apr, [facility] [place] [facility] [address] [id number] [place] [address]- 9813 Apr, [facility] [place] [facility] [address] [id number] [place] [address]- 4941 Apr, [facility] [place] [facility] [address] [id number] [place] [address]- 6161 Apr, [facility] [place] [facility] [address] [id number] [place] [address]- 5034 Apr, [facility] [place] [facility] [address] [id number] [place] [address]- 6866 Apr, [facility] [place] [facility] [address] [id number] [place] [address]- 4240 Apr, [facility] [place] [facility] [address] [id number] [place] [address]- 0630 Apr, [facility] [place] [facility] [address] [id number] [place] [address]- 9021 Apr, [facility] [place] [facility] [address] [id number] [place] [address]- 8116 Apr, [facility] [place] [facility] [address] [id number] [place] [address]- 4759 Mar, 2014 [facility] [place] [facility] [address] [id number] [place] 9326 Mar, 2014 [facility] [place] [facility] [address] [id number] [place] [address]- 2546 16 Mar, 2014 [facility] [place] [facility] [address] [id number] [place] [address]- 9116 16 Mar, 2014 [facility] [place] [facility] [address] [id number] [place] [address]- 3901 10 Mar, 2014 [facility] [place] [facility] [address] [id number] [place] [address]- 9727 Mar, 2014 [facility] [place] [facility] [address] [id number] [place] [address]- 6872 15 Feb, 2014 [facility] [place] [facility] [address] [id number] [place] [address]- 2708 Feb, [facility] [place] [facility] [address] [id number] [place] [address]- 8615 Feb, [facility] [place] [facility] [address] [id number] [place] [address]- 1273 Feb, [facility] [place] [facility] [address] [id number] [place] [address]- 2414 Jan, [facility] [place] [facility] [address] [id number] [place] [address]- 2543 Jan, [facility] [place] [facility] [address] [id number] [place] [address]- 2549 Jan, [facility] [place] [facility] [address] [id number] [place] 6926 Jan, [facility] [place] [facility] [address] [id number] [place] 8481 Dec, [facility] [place] [facility] [address] [id number] [place] 6912 Dec, [facility] [place] [facility] [address] [id number] [place] [address]- 6718 Dec, [facility] [place] [facility] [address] [id number] [place] [address]- 3694 Dec, [facility] [place] [facility] [address] [id number] [place] [address]- 4665 Dec, [facility] [place] [facility] [address] [id number] [place] [address]- 3105 Dec, [facility] [place] [facility] [address] [id number] [place] [address]- 4498 Dec, [facility] [place] [facility] [address] [id number] [place] [address]- 2280 Dec, [facility] [place] [facility] [address] [id number] [place] [address]- 7184 Dec, [facility] [place] [facility] [address] [id number] [place] [address]- 2148 Dec, [facility] [place] [facility] [address] [id number] [place] [address]- 6608 Dec, [facility] [place] [facility] [address] [id number] [place] [address]- 2583 Nov, [facility] [place] [facility] [address] [id number] [place] [address]- 8584 Nov, [facility] [place] [facility] [address] [id number] [place] [address]- 2619 28 Nov, 2013 [facility] [place] [facility] [address] [id number] [place] [address]- 9988 Nov, [facility] [place] [facility] [address] [id number] [place] [address]- 7622 17 Nov, 2013 [facility] [place] [facility] [address] [id number] [place] [address]- 7836 15 Nov, 2013 [facility] [place] [facility] [address] [id number] [place] [address]- 2630 15 Nov, 2013 [facility] [place] [facility] [address] [id number] [place] [address]- 7564 15 Nov, 2013 [facility] [place] [facility] [address] [id number] [place] [address]- 7593 15 Nov, 2013 [facility] [place] [facility] [address] [id number] [place] [address]- 3760 14 Nov, 2013 [facility] [place] [facility] [address] [id number] [place] [address]- 0004 14 Nov, 2013 [facility] [place] [facility] [address] [id number] [place] [address]- 6824 14 Nov, 2013 [facility] [place] [facility] [address] [id number] [place] [address]- 5947 14 Nov, 2013 [facility] [place] [facility] [address] [id number] [place] [address]- 8855 13 Nov, 2013 [facility] [place] [facility] [address] [id number] [place] [address]- 1540 13 Nov, 2013 [facility] [place] [facility] [address] [id number] [place] [address]- 8358 11 Nov, 2013 [facility] [place] [facility] [address] [id number] [place] [address]- 5402 11 Nov, 2013 [facility] [place] [facility] [address] [id number] [place] [address]- 4691 07 Nov, 2013 [facility] [place] [facility] [address] [id number] [place] [address]- 3037 07 Nov, 2013 [facility] [place] [facility] [address] [id number] [place] [address]- 2018 07 Nov, 2013 [facility] [place] [facility] [address] [id number] [place] [address]- 5432 07 Nov, 2013 [facility] [place] [facility] [address] [id number] [place] [address]- 8070 30 Oct, 2013 [facility] [place] [facility] [address] [id number] [place] [address]- 2951 30 Oct, 2013 [facility] [place] [facility] [address] [id number] [place] [address] 2546 26 Oct, 2013 [facility] [place] [facility] [address] [id number] [place] [address] 2546 26 Oct, 2013 [facility] [place] [facility] [address] [id number] [place] [address] 2546 22 Oct, 2013 [facility] [place] [facility] [address] [id number] [place] [address] 254 22 Oct, 2013 [facility] [place] [facility] [address] [id number] [place] [address]- 2618 18 Oct, 2013 [facility] [place] [facility] [address] [id number] [place] [address]- 1267 18 Oct, 2013 [facility] [place] [facility] [address] [id number] [place] [address]- 2142 18 Oct, 2013 [facility] [place] [facility] [address] [id number] [place] [address] 2549 18 Oct, 2013 [facility] [place] [facility] [address] [id number] [place] [address] 2543 12 Oct, 2013 [facility] [place] [facility] [address] [id number] [place] [address] 2548 12 Oct, 2013 [facility] [place] [facility] [address] [id number] [place] [address] 2540 Oct, 2013 [facility] [place] [facility] [address] [id number] [place] [address] 2548 Oct, 2013 [facility] [place] [facility] [address] [id number] [place] [address]- 2544 Sep, [facility] [place] [facility] [address] [id number] [place] [address]- 2549 Sep, [facility] [place] [facility] [address] [id number] [place] [address]- 0954 Sep, [facility] [place] [facility] [address] [id number] [place] [address]- 6426 Sep, [facility] [place] [facility] [address] [id number] [place] [address]- 4364 Sep, [facility] [place] [facility] [address] [id number] [place] [address]- 6601 Sep, [facility] [place] [facility] [address] [id number] [place] [address]- 8861 Sep, [facility] [place] [facility] [address] [id number] [place] [address]- 0797 Sep, [facility] [place] [facility] [address] [id number] [place] [address]- 7755 Sep, [facility] [place] [facility] [address] [id number] [place] [address]- 1033 Sep, [facility] [place] [facility] [address] [id number] [place] [address]- 9594 Sep, [facility] [place] [facility] [address] [id number] [place] [address]- 4033 Sep, [facility] [place] [facility] [address] [id number] [place] [address]- 6807 Sep, [facility] [place] [facility] [address] [id number] [place] [address]- 8320 Sep, [facility] [place] [facility] [address] [id number] [place] [address]- 1821 Sep, [facility] [place] [facility] [address] [id number] [place] [address]- 5206 Sep, [facility] [place] [facility] [address] [id number] [place] [address]- 7110 Sep, [facility] [place] [facility] [address] [id number] [place] [address]- 8952 Sep, [facility] [place] [facility] [address] [id number] [place] [address]- 9484 Aug, [facility] [place] [facility] [address] [id number] [place] [address]- 4195 Aug, [facility] [place] [facility] [address] [id number] [place] [address]- 8475 Aug, [facility] [place] [facility] [address] [id number] [place] [address]- 0288 Aug, [facility] [place] [facility] [address] [id number] [place] [address]- 5607 Aug, [facility] [place] [facility] [address] [id number] [place] [address]- 7578 Aug, [facility] [place] [facility] [address] [id number] [place] [address]- 0412 Jul, [facility] [place] [facility] [address] [id number] [place] [address]- 7169 Jul, [facility] [place] [facility] [address] [id number] [place] [address]- 8680 Jul, [facility] [place] [facility] [address] [id number] [place] [address]- 1425 Jul, [facility] [place] [facility] [address] [id number] [place] [address]- 4826 June, [facility] [place] [facility] [address] [id number] [place] [address]- 7330 June, [facility] [place] [facility] [address] [id number] [place] [address]- 7298 June, [facility] [place] [facility] [address] [id number] [place] [address]- 7061 June, [facility] [place] [facility] [address] [id number] [place] [address]- 3236 June, [facility] [place] [facility] [address] [id number] [place] [address]- 3122 June, [facility] [place] [facility] [address] [id number] [place] [address]- 7358 June, [facility] [place] [facility] [address] [id number] [place] [address]- 6820 May, [facility] [place] [facility] [address] [id number] [place] [address]- 8050 May, [facility] [place] [facility] [address] [id number] [place] [address]- 8302 May, [facility] [place] [facility] [address] [id number] [place] [address]- 2756 May, [facility] [place] [facility] [address] [id number] [place] [address]- 3169 May, [facility] [place] [facility] [address] [id number] [place] [address]- 1848 May, [facility] [place] [facility] [address] [id number] [place] [address]- 4831 Apr, [facility] [place] [facility] [address] [id number] [place] [address]- 5387 31 Apr, 2013 [facility] [place] [facility] [address] [id number] [place] [address]- 7558 Apr, [facility] [place] [facility] [address] [id number] [place] [address]- 9632 Apr, [facility] [place] [facility] [address] [id number] [place] [address]- 5760 Apr, [facility] [place] [facility] [address] [id number] [place] [address]- 8145 14 Apr, 2013 [facility] [place] [facility] [address] [id number] [place] [address]- 4620 Apr, [facility] [place] [facility] [address] [id number] [place] 0725 Apr, [facility] [place] [facility] [address] [id number] [place] [address] Apr, [facility] [place] [facility] [address] [id number] [place] [address] Apr, [facility] [place] [facility] [address] [id number] [place] [address] Apr, [facility] [place] [facility] [address] [id number] [place] [address] Apr, [facility] [place] [facility] [address] [id number] [place] [address] Apr, [facility] [place] [facility] [address] [id number] [place] [address] 98[address] Apr, [facility] [place] [facility] [address] [id number] [place] [address] Mar, [facility] [place] [facility] [address] [id number] [place] [address] Mar, [facility] [place] [facility] [address] [id number] [place] [address] 4668 Mar, [facility] [place] [facility] [address] [id number] [place] [address] Feb, [facility] [place] [facility] [address] [id number] [place] [address] Feb, [facility] [place] [facility] [address] [id number] [place] [address] 110[address] Feb, [facility] [place] [facility] [address] [id number] [place] [address] Feb, [facility] [place] [facility] [address] [id number] [place] [address] 27[address] Feb, [facility] [place] [facility] [address] [id number] [place] [address] Feb, [facility] [place] [facility] [address] [id number] [place] [address]- 15[address] Feb, [facility] [place] [facility] [address] [id number] [place] [address] Feb, [facility] [address] [id number] [place] [address] Feb, [facility] [place] [facility] [address] [id number] [place] [address] 25[address] Feb, [facility] [address] [id number] [place] [address] Jan, [facility] [place] [facility] [address] [id number] [place] [address] 9[address] Jan, [facility] [place] [facility] [address] [id number] [place] [address] 90[address] Jan, [facility] [place] [facility] [address] [id number] [place] [address] Jan, [facility] [place] [facility] [address] [id number] [place] [address] 1695 Jan, [facility] [address] [id number] [place] [address] 8947 Jan, [facility] [place] [facility] [address] [id number] [place] [address] 5726 Jan, [facility] [place] [facility] [address] [id number] [place] [address] Jan, [facility] [place] [facility] [address] [id number] [place] [address]- 9364 Jan, [facility] [place] [facility] [address] [id number] [place] [address]- 2085 Jan, [facility] [place] [facility] [address] [id number] [place] [address] 2866 17 Jan, 2013 [facility] [place] [facility] [address] [id number] [place] [address] 17 Jan, 2013 [facility] [place] [facility] [address] [id number] [place] [address] Jan, [facility] [address] [id number] [place] [address] 67[address] Jan, [facility] [place] [facility] [address] [id number] [place] [address] Jan, [facility] [place] [facility] [address] [facility] [id number] [place] [address] Jan, [facility] [place] [facility] [address] [id number] [place] [address] 54[address] Jan, [facility] [address] [id number] [place] [address]- 3058 Jan, [facility] [place] [facility] [address] [id number] [place] [address]- [address] Jan, [facility] [place] [facility] [address] [id number] [place] [address] 8288 Jan, [facility] [place] [facility] [address] [id number] [place] [address]- 65[address] Jan, [facility] [place] [facility] [address] [id number] [place] [address]- 69[address] Dec, [facility] [place] [facility] [address] [id number] [place] [address] 4833 Dec, [facility] [place] [facility] [address] [id number] [place] [address] Dec, [facility] [place] [facility] [address] [id number] [place] [address]- [address] Dec, [facility] [place] [facility] [address] [id number] [place] [address]248 Dec, [facility] [place] [facility] [address] [id number] [place] [address] Dec, [facility] [place] [facility] [address] [facility] [id number] [place] [address] Dec, [facility] [place] [facility] [address] [id number] [place] [address]- 0998 Dec, [facility] [place] [facility] [address] [id number] [place] [address]- 5866 Dec, [facility] [place] [facility] [address] [id number] [place] [address]- 7491 Dec, [facility] [place] [facility] [address] [id number] [place] [address]- [address]149 Nov, [facility] [place] [facility] [address] [id number] [place] [address]- 4900 Nov, [facility] [place] [facility] [address] [id number] [place] [address]- 2810 Nov, [facility] [place] [facility] [address] [id number] [place] [address] Nov, [facility] [place] [facility] [address] [id number] [place] [address]- 4945 Nov, [facility] [place] [facility] [address] [id number] [place] [address]- 9[address] Nov, [facility] [place] [facility] [address] [id number] [place] [address]- 1602 Nov, [facility] [place] [facility] [address] [id number] [place] [address]- 5993 Nov, [facility] [place] [facility] [address] [id number] [place] [address]- [address]138 10 Nov, 2012 [facility] [place] [facility] [address] [id number] [place] [address] Nov, [facility] [place] [facility] [address] [id number] [place] [address] Oct, [facility] [place] [facility] [address] [id number] [place] [address]885 Oct, [facility] [place] [facility] [address] [id number] [place] [address] Oct, [facility] [place] [facility] [address] [id number] [place] [address] 254 Oct, [facility] [address] [id number] [place] [address] 2547 Oct, [facility] [address] [id number] [place] [address] Sep, [facility] [address] [id number] [place] [address] 2547 Sep, [facility] [address] [id number] [place] [address] 96[address] Aug, [facility] [address] [id number] [place] [address] 2404 Aug, [facility] [address] [id number] [place] [address] 4967 Aug, [facility] [address] [id number] [place] [address] 3071 Aug, [facility] [address] [id number] [place] [address] 4804 Aug, [facility] [address] [id number] [place] [address] 7497 Aug, [facility] [address] [id number] [place] [address] 4[address] Aug, [facility] [address] [id number] [place] [address] 5746 Jul, [facility] [place] [facility] [address] [id number] [place] [address] 4[address] Jul, [facility] [place] [facility] [address] [id number] [place] [address] 8581 June, [facility] [place] [facility] [address] [id number] [place] [address] June, [facility] [address] [id number] [place] [address] 3640 June, [facility] [address] [id number] [place] [address]- 5030 June, [facility] [address] [id number] [place] [address] 1920 June, [facility] [address] [id number] [place] [address] 8[address] June, [facility] [address] [id number] [place] [address] 1880 June, [facility] [address] [id number] [place] [address] June, [facility] [address] [id number] [place] [address] 2840 June, [facility] [address] [id number] [place] [address] 7603 June, [facility] [address] [id number] [place] [address]- 7370 June, [facility] [address] [id number] [place] [address] 3170 May, [facility] [address] [id number] [place] [address]- 4814 May, [facility] [address] [id number] [place] [address]- 6407 May, [facility] [place] [facility] [address] [id number] [place] [address]- 4637 May, [facility] [place] [facility] [address] [id number] [place] [address]- 1537 Apr, [facility] [place] [facility] [address] [id number] [place] [address] Apr, [facility] [place] [facility] [address] [id number] [place] [address]- 3284 Apr, [facility] [place] [facility] [address] [id number] [place] [address]- 9736 Mar, [facility] [address] [id number] [place] [address] 7616 Mar, [facility] [address] [id number] [place] [address] 2546 Feb, [facility] [address] [id number] [place] [address]- 2306 Feb, [facility] [address] [id number] [place] [address] 4076 Feb, [facility] [address] [id number] [place] [address] 1196 Feb, [facility] [address] [id number] [place] [address]- 2586 Feb, [facility] [address] [id number] [place] [address]- 9247 Feb, [facility] [address] [id number] [place] [address] 0522 Feb, [facility] [address] [id number] [place] [address]- 8612 Jan, [facility] [address] [id number] [place] [address]- 7052 Jan, [facility] [address] [id number] [place] [address]- 4345 Jan, [facility] [address] [id number] [place] [address]- 5556 Jan, [facility] [address] [id number] [place] [address]- 0516 Jan, [facility] [address] [id number] [place] [address]- 2546 Jan, [facility] [address] [id number] [place] [address]- 8060 Jan, [facility] [place] [facility] [address] [id number] [place] [address]- 3347 Jan, [facility] [place] [facility] [address] [id number] [place] [address]- 6295 Jan, [facility] [place] [facility] [address] [id number] [place] [address]- 2949 Jan, [facility] [place] [facility] [address] [id number] [place] [address]- 4897 Jan, [facility] [place] [facility] [address] [id number] [place] [address]- 3559 Dec, [facility] [place] [facility] [address] [id number] [place] [address]- 4082 Dec, [facility] [place] [facility] [address] [id number] [place] [address]- 2742 Dec, [facility] [place] [facility] [address] [id number] [place] [address]- 6596 Dec, [facility] [place] [facility] [address] [id number] [place] [address]- 6242 Nov, [facility] [place] [facility] [address] [id number] [place] [address]- 3466 Nov, [facility] [place] [facility] [address] [id number] [place] [address] 8086 Nov, [facility] [place] [facility] [address] [id number] [place] [address] 5273 27 Oct, 2011 [facility] [place] [facility] [address] [id number] [place] [address]- 2287 24 Oct, 2011 [facility] [place] [facility] [address] [id number] [place] [address]- 3751 21 Oct, 2011 [facility] [place] [facility] [address] [id number] [place] [address]- 4578 10 Oct, 2011 [facility] [place] [facility] [address] [id number] [place] [address]- 5882 07 Oct, 2011 [facility] [place] [facility] [address] [id number] [place] [address]- 7606 04 Oct, 2011 [facility] [place] [facility] [address] [id number] [place] [address]- 4016 04 Oct, 2011 [facility] [place] [facility] [address] [id number] [place] [address]- 4216 29 Sep, 2011 [facility] [place] [facility] [address] [id number] [place] [address]- 7101 Sep, [facility] [place] [facility] [address] [id number] [place] [address]- 2244 Sep, [facility] [place] [facility] [address] [id number] [place] [address]- 9908 Sep, [facility] [place] [facility] [address] [id number] [place] [address]- 9508 Sep, [facility] [place] [facility] [address] [id number] [place] [address]- 1542 30 Aug, 2011 [facility] [place] [facility] [address] [id number] [place] [address]- 8028 26 Aug, 2011 [facility] [place] [facility] [address] [id number] [place] [address]- 1741 Aug, [facility] [place] [facility] [address] [id number] [place] [address]- 6902 16 Aug, 2011 [facility] [place] [facility] [address] [id number] [place] [address]- 2326 13 Aug, 2011 [facility] [place] [facility] [address] [id number] [place] [address]- 2493 Aug, [facility] [place] [facility] [address] [id number] [place] [address]- 1496 Aug, [facility] [place] [facility] [address] [id number] [place] [address]- 5884 Jul, [facility] [place] [facility] [address] [id number] [place] [address]- 5528 Jul, [facility] [place] [facility] [address] [id number] [place] [address]- 3372 Jul, [facility] [place] [facility] [address] [id number] [place] [address]- 3872 Jul, [facility] [place] [facility] [address] [id number] [place] [address]- 1895 Jul, [facility] [place] [facility] [address] [id number] [place] [address]- 7705 Jul, [facility] [place] [facility] [address] [id number] [place] [address]- 0109 Jul, [facility] [place] [facility] [address] [id number] [place] [address]- 8919 Jul, [facility] [place] [facility] [address] [id number] [place] [address]- 8414 Jul, [facility] [place] [facility] [address] [id number] [place] [address]- 0933 June, [facility] [place] [facility] [address] [id number] [place] [address]- 6226 June, [facility] [place] [facility] [address] [id number] [place] [address]- 4712 June, [facility] [place] [facility] [address] [id number] [place] [address]- 8192 June, [facility] [place] [facility] [address] [id number] [place] [address]- 4360 June, [facility] [place] [facility] [address] [id number] [place] [address]- 1613 June, [facility] [place] [facility] [address] [id number] [place] [address]- 3460 June, [facility] [place] [facility] [address] [id number] [place] [address]- 2249 June, [facility] [place] [facility] [address] [id number] [place] [address]- 9483 May, [facility] [place] [facility] [address] [id number] [place] [address]- 5276 May, [facility] [place] [facility] [address] [id number] [place] [address]- 0896 May, [facility] [place] [facility] [address] [id number] [place] [address]- 7095 May, [facility] [place] [facility] [address] [id number] [place] [address]- 7650 May, [facility] [place] [facility] [address] [id number] [place] [address]- 4602 May, [facility] [place] [facility] [address] [id number] [place] [address]- 1472 May, [facility] [place] [facility] [address] [id number] [place] [address]- 3430 Apr, [facility] [place] [facility] [address] [id number] [place] [address]- 7871 Apr, [facility] [place] [facility] [address] [id number] [place] [address]- 1330 Apr, [facility] [place] [facility] [address] [id number] [place] [address]- 9845 Apr, [facility] [place] [facility] [address] [id number] [place] [address]- 0529 Apr, [facility] [place] [facility] [address] [id number] [place] [address]- 0465 Apr, [facility] [place] [facility] [address] [id number] [place] [address]- 5616 Apr, [facility] [place] [facility] [address] [id number] [place] [address]- 5947 Mar, [facility] [place] [facility] [address] [id number] [place] [address]- 1656 20 Mar, 2011 [facility] [address] [id number] [place] [address]- 5476 14 Mar, 2011 [facility] [place] [facility] [address] [id number] [place] [address] 2546 13 Mar, 2011 [facility] [address] [id number] [place] [address] 2546 09 Mar, 2011 [facility] [place] [facility] [address] [id number] [place] [address] 2546 Mar, [facility] [place] [facility] [address] [id number] [place] [address] 2546 Mar, [facility] [address] [id number] [place] [address]- 5348 Feb, [facility] [address] [id number] [place] [address]- 1688 Feb, [facility] [address] [id number] [place] [address]- 0267 Feb, [facility] [address] [id number] [place] [address]- 5669 Feb, [facility] [address] [id number] [place] [address]- 8556 Feb, [facility] [place] [facility] [address] [id number] [place] [address] 2546 Feb, [facility] [place] [facility] [address] [id number] [place] [address] 2546 Feb, [facility] [place] [facility] [address] [id number] [place] [address] 2546 Feb, [facility] [place] [facility] [address] [id number] [place] [address]- 2546 Feb, [facility] [place] [facility] [address] [id number] [place] [address]- 2546 Feb, [facility] [place] [facility] [address] [id number] [place] [address]- 2864 Jan, [facility] [place] [facility] [address] [id number] [place] [address]- 2116 Jan, [facility] [place] [facility] [address] [id number] [place] [address]- 5436 Jan, [facility] [place] [facility] [address] [id number] [place] [address]- 4502 Jan, [facility] [place] [facility] [address] [id number] [place] [address]- 5892 Jan, [facility] [place] [facility] [address] [id number] [place] [address]- 3068 Jan,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
--- OUTSIDE RECORDS SUMMARY | 2018-01-13 21:03 | XMS REPORT ---
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 Active 447111730 Problem Hypertension I10 Active 20523433 Problem Arthritis M19.90 Active 3942621 Problem 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 Active 23450236 Problem Anxiety F41.9 Active 05922842 Problem Unspecified episodic mood disorder F39 Active 21882458 Problem Left hip pain M25.552 Active 75051591 ALLERGIES No Information ENCOUNTERS Encounter Location Date Diagnosis [facility] [address] [id number] [id number] Aug, [facility] [address] [facility] [id number], [place] [address] Aug, Arthritis M19.90 [facility] [address] [facility] [id number], [place] [address] Aug, [facility] [address] [address] Aug, Obesity (BMI 30.0-34.9) E66.9 ; Unspecified episodic mood disorder F39 and Hypertension I10 [facility] [address] [id number] [address] Aug, Unspecified episodic mood disorder F39 [facility] [id number] [place] [address] 76566- 3064 Aug, [facility] [id number] [place] [address] 62847- 9058 Jul, Unspecified episodic mood disorder F39 [facility] [id number] [place] [address] 26486- 4076 Jul, [facility] [id number] [place] [address] 69618- 2676 Jul, Arthritis M19.90 [facility] [id number] [place] [address] 35267- 4218 Jul, Left hip pain M25.552 ; Hypertension I10 ; Other obesity due to excess calories E66.09 and Body mass index (BMI) of 34.0-34.9 in adult Z68.34 [facility] [id number] [place] [address] 97500- 4038 Jul, Unspecified episodic mood disorder F39 [facility] [id number] [place] [address] 30236- 4597 June, Gastroesophageal reflux disease, esophagitis presence not specified K21.9 [facility] [id number] [place] [address] 24869- 6443 June, [facility] [id number] [place] [address] 36721- 6152 June, [facility] [id number] [place] [address] 56213- 8721 June, Arthritis M19.90 [facility] [address] [address] June, [facility] [address] [address] June, [facility] [address] [address] 37[address] June, Unspecified episodic mood disorder F39 [facility] [id number] [place] [address] 89686- 6533 May, Unspecified episodic mood disorder F39 [facility] [id number] [place] [address] 10756- 5085 May, [facility] [id number] [place] [address] 30416- 6676 May, Arthritis M19.90 [facility] [id number] [place] [address] 58099 -7505 May, Dysuria R30.0 ; Abscess L02.91 and Acute cystitis without hematuria N30.00 [facility] [id number] [place] [address] 07168- 9760 May, Other disorder of impulse control F63.89 ; Unspecified episodic mood disorder F39 ; Combined drug dependence excluding opioids, 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 ; Anxiety F41.9 and Other psychoactive substance dependence, 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 [facility] [address] [address] May, [facility] [id number] [place] [address] 03356- 0939 May, Other disorder of impulse control F63.89 ; Unspecified episodic mood disorder F39 ; Combined drug dependence excluding opioids, 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 ; Other psychoactive substance dependence, 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 and Anxiety F41.9 [facility] [address], [place] [address] May, Other chronic pain G89.29 ; Left hip pain M25.552 ; Hypertension I10 ; 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, 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 and Unspecified episodic mood disorder F39 [facility] [id number] [place] [address] 61669- 4436 28 Apr, 2017 [facility] [id number] [place] [address] 40732 -6972 Apr, Neck pain M54.2 ; Left hip pain M25.552 and Fall, initial encounter W19.XXXA [facility] [id number] [place] [address] 47442- 3231 Apr, Unspecified episodic mood disorder F39 ; Combined drug dependence excluding opioids, 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 ; Anxiety F41.9 ; Other psychoactive substance dependence, 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 and Other disorder of impulse control F63.89 [facility] [id number] [place] [address] 96637- 9982 Apr, [facility] [id number] [place] [address] 16027- 8572 Apr, Arthritis M19.90 and Unspecified episodic mood disorder F39 [facility] [id number] [place] [address] 85406- 7026 Apr, Unspecified episodic mood disorder F39 [facility] [address] [address] 0283 Apr, [facility] [id number] [place] [address] 02216- 4829 08 Apr, 2017 [facility] [id number] [place] [address] 93559- 2399 07 Apr, 2017 Unspecified episodic mood disorder F39 ; Combined drug dependence excluding opioids, 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 ; Anxiety F41.9 ; Other psychoactive substance dependence, 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 and Other disorder of impulse control F63.89 [facility] [id number] [place] [address] 55845- 6816 Mar, Unspecified episodic mood disorder F39 [facility] [address] [address] Mar, Gastroesophageal reflux disease, esophagitis presence not specified K21.9 [facility] [id number] [place] [address] 75278 2546 Mar, Arthritis M19.90 and Unspecified episodic mood disorder F39 [facility] [id number] [place] [address] 56385 2546 Feb, [facility] [id number] [place] [address] 41305 2546 Feb, [facility] [id number] [place] [address] 17953- 2976 Feb, [facility] [id number] [place] [address] 45913- 5276 Feb, Arthritis M19.90 [facility] [id number] [place] [address] 07143 254 Feb, Non-pressure chronic ulcer of right calf, 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 ; Unspecified episodic mood disorder F39 and Left hip pain M25.552 [facility] [id number] [place] [address] 46302 2546 Feb, [facility] [id number] [place] [address] 18912 2546 Feb, [facility] [id number] [place] [address] 43981 2546 Jan, Arthritis M19.90 [facility] [id number] [place] [address] 90686 2546 Jan, Left hip pain M25.552 and Non-pressure chronic ulcer of right calf, 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 [facility] [address] [address] 2546 Jan, Chronic hepatitis C without hepatic coma B18.2 [facility] [id number] [place] [address] 77655- 6636 Jan, Encounter for immunization Z23 ; Venous insufficiency ( chronic) (peripheral) I87.2 ; Non-pressure chronic ulcer of unspecified calf limited to breakdown of skin L97.201 and Gastroesophageal reflux disease, esophagitis presence not specified K21.9 [facility] [id number] [place] [address] 54272- 3966 Jan, [facility] [id number] [place] [address] 43643- 2543 Jan, Chronic hepatitis C without hepatic coma B18.2 and Encounter for immunization Z23 [facility] [address] 91628- 5526 Jan, Arthritis M19.90 [facility] [id number] [place] [address] 52966- 0076 Jan, [facility] [id number] [place] [address] 22105- 7153 Dec, [facility] [id number] [place] [address] 24402- 4556 Dec, Unspecified episodic mood disorder F39 [facility] [id number] [place] [address] 29254 2546 Dec, Arthritis M19.90 [facility] [id number] [place] [address] 05636 2546 Dec, Arthritis M19.90 [facility] [id number] [place] [address] 05135- 2544 Nov, [facility] [address] 14643- 2546 Nov, [facility] [id number] [place] [address] 15617- 2546 Nov, Other psychoactive substance dependence, 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 ; 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, 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 and Chronic hepatitis C without hepatic coma B18.2 [facility] [id number] [place] [address] 23162- 6758 Nov, Arthritis M19.90 [facility] [id number] [place] [address] 97347 -0738 Oct, Partial thickness burn of abdomen, initial encounter T21.22XA [facility] [id number] [place] [address] 94123- 6843 Oct, [facility] [id number] [place] [address] 15080- 9766 Sep, Arthritis M19.90 [facility] [id number] [place] [address] 28371- 4989 Sep, [facility] [id number] [place] [address] 20946- 9283 Sep, [facility] [id number] [place] [address] 27487- 9902 Sep, Unspecified episodic mood disorder F39 ; Chronic hepatitis C without hepatic coma B18.2 and Left hip pain M25.552 [facility] [id number] [place] [address] 00329- 8941 Sep, Arthritis M19.90 and Left hip pain M25.552 [facility] [id number] [place] [address] 21023- 2030 Aug, [facility] [id number] [place] [address] 23209- 2492 Aug, [facility] [id number] [place] [address] 77773- 9900 Aug, Chronic hepatitis C without hepatic coma B18.2 [facility] [address] [address]- 8529 Aug, [facility] [id number] [place] [address] 68391- 0969 Aug, Chronic hepatitis C without hepatic coma B18.2 [facility] [id number] [place] [address] 69152- 1624 Aug, 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, 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 [facility] [id number] [place] [address] 05673- 0936 Aug, [facility] [id number] [place] [address] 45390- 6501 Aug, Chronic hepatitis C without hepatic coma B18.2 and Hypertension I10 [facility] [id number] [place] [address] 61226- 9383 Jul, [facility] [id number] [place] [address] 18852- 4146 June, [facility] [id number] [place] [address] 31110- 8641 Apr, Fibromyalgia M79.7 ; Left hip pain M25.552 and Decubitus ulcer of sacral region, stage 1 L89.151 [facility] [id number] [place] [address] 25064- 3472 Apr, [facility] [id number] [place] [address] 44862- 4476 Apr, [facility] [id number] [place] [address] 00171- 1019 Feb, [facility] [id number] [place] [address] 90332- 5946 Dec, Anxiety F41.9 ; Combined drug dependence excluding opioids, 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 and Unspecified episodic mood disorder F39 [facility] [id number] [place] [address] 26620- 9254 Dec, [facility] [id number] [place] [address] 28189- 5841 Nov, [facility] [address] [place] [address]- 0313 Nov, [facility] [id number] [place] [address] 95355- 1588 Nov, Other disorder of impulse control F63.89 and Anxiety F41.9 [facility] [id number] [place] [address] 66383- 8954 21 Oct, 2015 [facility] [id number] [place] [address] 75297 -7944 14 Oct, 2015 Open wound of left thigh, initial encounter S71.102A [facility] [id number] [place] [address] 63247- 9515 Oct, [facility] [id number] [place] [address] 43631- 2167 Sep, Unspecified episodic mood disorder F39 ; Other disorder of impulse control 312.39 ; Combined drug dependence excluding opioids, 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 and Anxiety F41.9 [facility] [id number] [place] [address] 29967- 5773 Sep, Other disorder of impulse control 312.39 ; Combined drug dependence excluding opioids, 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 ; Anxiety F41.9 and Unspecified episodic mood disorder F39 [facility] [id number] [place] [address] 23576- 4018 Sep, Other chronic pain G89.29 [facility] [id number] [place] [address] 36656- 5165 Sep, [facility] [id number] [place] [address] 42189- 9311 Sep, [facility] [id number] [place] [address] 62645- 9163 Aug, [facility] [id number] [place] [address] 97645- 4538 Aug, [facility] [id number] [place] [address] 72134- 0838 Aug, [facility] [id number] [place] [address] 64792- 9459 Jul, [facility] [id number] [place] [address] 42926- 9599 Jul, [facility] [id number] [place] [address] 82354- 5271 Jul, [facility] [id number] [place] [address] 76832- 5433 Jul, Arthritis M19.90 ; Chronic hepatitis C without hepatic coma B18.2 and Left hip pain M25.552 [facility] [id number] [place] [address] 58346- 1129 Jul, Left knee pain M25.562 [facility] [id number] [place] [address] 03846- 3941 Jul, Combined drug dependence excluding opioids, 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 ; Anxiety F41.9 ; Other disorder of impulse control 312.39 and Unspecified episodic mood disorder F39 [facility] [id number] [place] [address] 13751- 3201 Jul, Left knee pain M25.562 [facility] [id number] [place] [address] 45593- 4222 Jul, Left knee pain M25.562 and Left hip pain M25.552 [facility] [id number] [place] [address] 59943- 6810 Jul, [facility] [id number] [place] [address] 91020- 8400 June, [facility] [id number] [place] [address] 65161- 4368 June, Combinations of drug dependence excluding opioid type drug, unspecified abuse 304.80 ; Other disorder of impulse control 312.39 ; Unspecified episodic mood disorder F39 and Anxiety F41.9 [facility] [address], [place] [address]- 1613 June, Other fatigue R53.83 ; Headache R51 and Left knee pain M25.562 [facility] [id number] [place] [address] 40118- 1219 June, Unspecified episodic mood disorder F39 ; Combinations of drug dependence excluding opioid type drug, unspecified abuse 304.80 ; Other disorder of impulse control 312.39 and Anxiety F41.9 [facility] [id number] [place] [address] 53647- 3788 June, Anxiety F41.9 [facility] [id number] [place] [address] 03611- 5258 June, Pain in left knee M25.562 [facility] [id number] [place] [address] 04234- 8667 June, Anxiety F41.9 and Combinations of drug dependence excluding opioid type drug, unspecified abuse 304.80 [facility] [address] [place] [address] 29694- 8318 June, Unspecified episodic mood disorder 296.90 ; Combinations of drug dependence excluding opioid type drug, unspecified abuse 304.80 and Other disorder of impulse control 312.39 [facility] [id number] [place] [address] 76418- 5128 June, Anxiety F41.9 and Unspecified episodic mood disorder 296.90 [facility] [address], [place] [address]- 9180 May, Arthritis M19.90 [facility] [address], [place] [address]- 6534 May, Arthritis M19.90 [facility] [id number] [place] [address] 93423- 1721 May, Anxiety F41.9 ; Combinations of drug dependence excluding opioid type drug, unspecified abuse 304.80 and Other disorder of impulse control 312.39 [facility] [id number] [address]- 6058 18 May, 2015 Left knee pain M25.562 [facility] [id number] [place] [address] 29521- 1935 14 May, 2015 Arthritis M19.90 [facility] [address], [place] [address]- 2915 May, [facility] [id number] [place] [address] 80231- 8106 May, Anxiety F41.9 ; Unspecified episodic mood disorder 296.90 ; Combinations of drug dependence excluding opioid type drug, unspecified abuse 304.80 and Other disorder of impulse control 312.39 [place] [id number] [place] [address] 05403- 9478 May, Left knee pain M25.562 [facility] [id number] [place] [address] 13363- 6941 May, Left knee pain M25.562 ; Combinations of drug dependence excluding opioid type drug, unspecified abuse 304.80 ; Other disorder of impulse control 312.39 ; Fibromyalgia M79.7 ; Hypertension I10 ; Unspecified episodic mood disorder 296.90 and Left hip pain M25.552 [facility] [address] [address]- 6450 May, Unspecified episodic mood disorder 296.90 ; Other disorder of impulse control 312.39 ; Combinations of drug dependence excluding opioid type drug, unspecified abuse 304.80 and Anxiety F41.9 [facility] [id number] [address]- 4086 May, Left knee pain M25.562 ; Combinations of drug dependence excluding opioid type drug, unspecified abuse 304.80 ; Other disorder of impulse control 312.39 ; Fibromyalgia M79.7 ; Hypertension I10 ; Unspecified episodic mood disorder 296.90 and Left hip pain M25.552 [facility] [address] [place] [address] 31019- 5643 May, Anxiety F41.9 ; Unspecified episodic mood disorder 296.90 ; Other disorder of impulse control 312.39 and Combinations of drug dependence excluding opioid type drug, unspecified abuse 304.80 [facility] [address] [place] [address] 25574- 0345 30 Apr, 2015 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 and 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, implants and grafts, initial encounter T84.82XA [facility] [id number] [place] [address] 14116- 3976 Apr, Anxiety F41.9 ; Unspecified episodic mood disorder 296.90 ; Combinations of drug dependence excluding opioid type drug, unspecified abuse 304.80 and Other disorder of impulse control 312.39 [facility] [id number] [place] [address] 49112- 7973 Apr, Arthritis M19.90 [facility] [id number] [place] [address] 04295- 5728 Apr, Anxiety F41.9 ; Unspecified episodic mood disorder 296.90 ; Combinations of drug dependence excluding opioid type drug, unspecified abuse 304.80 and Other disorder of impulse control 312.39 [facility] [id number] [place] [address] 74270- 1619 17 Apr, 2015 Arthritis M19.90 [facility] [id number] [place] [address] 99097- 4666 15 Apr, 2015 [facility] [id number] [place] [address] 68595- 6104 15 Apr, 2015 [facility] [id number] [place] [address] 94808- 3473 14 Apr, 2015 Unspecified episodic mood disorder 296.90 ; Combinations of drug dependence excluding opioid type drug, unspecified abuse 304.80 ; Other disorder of impulse control 312.39 and Anxiety F41.9 [facility] [id number] [place] [address] 02860 -5501 11 Apr, 2015 Left knee pain M25.562 [facility] [address] [address]- 2050 Apr, [place] [id number] [place] [address] 05310- 6245 Mar, Unspecified episodic mood disorder 296.90 ; Anxiety F41.9 ; Other disorder of impulse control 312.39 and Combinations of drug dependence excluding opioid type drug, unspecified abuse 304.80 [place] [id number] [place] [address] 59232- 8965 Mar, Hyperpigmentation L81.9 [place] [id number] [place] [address] 76334- 5935 Mar, Arthritis M19.90 and Anxiety F41.9 [place] [id number] [place] [address] 00062- 1129 Mar, Unspecified episodic mood disorder F39 ; Combined drug dependence excluding opioids, 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 ; Other disorder of impulse control F63.89 and Anxiety F41.9 [place] [id number] [place] [address] 04148- 1362 12 Mar, 2015 Well woman exam Z01.419 ; Other fatigue R53.83 ; Hot flashes N95.1 ; Depression, unspecified depression type F32.9 and Body mass index (BMI) of 23.0-23.9 in adult Z68.23 [place] [id number] [place] [address] 83562- 8032 11 Mar, 2015 Unspecified episodic mood disorder 296.90 ; Other disorder of impulse control 312.39 and Anxiety F41.9 [place] [id number] [place] [address] 43688- 7184 11 Mar, 2015 Well woman exam Z01.419 [...] of breast Z12.39 and Limited mobility Z74.09 [place] [address] 34707- 8390 Mar, [place] [address] 12494- 8193 Mar, [address] 37432- 4846 Mar, [address] 34132- 3630 Mar, Other specified complication of internal orthopedic prosthetic devices, implants and grafts, initial encounter T84.89XA ; Fibromyalgia M79.7 ; Hypertension I10 ; Anemia D64.9 ; Insomnia G47.00 ; Anxiety F41.9 ; Arthritis M19.90 and Migraine G43.[address] 34131- 0291 Mar, [place] [address] 33061- 1263 Feb, [place] [address] 12524- 9663 Feb, Arthritis M19.90 and Anxiety F41.9 [place] [address] 98922- 9903 Feb, [place] [address] 93691- 4037 Feb, [place] [address] 59810- 5217 Feb, [address] [id number] [address] Feb, [facility] [id number] [place] [address] 46785- 6858 Feb, Anxiety F41.9 [facility] [id number] [place] [address] 35985- 7903 15 Feb, 2015 [facility] [id number] [place] [address] 62128- 5190 Feb, [facility] [id number] [place] [address] 41217- 2159 Feb, 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 and Fibromyalgia M79.7 [facility] [id number] [place] [address] 36906- 0870 Feb, [facility] [id number] [place] [address] 51907- 2497 Jan, [facility] [address] [id number] [address] 7033 Jan, [facility] [id number] [place] [address] 22896- 3526 Jan, [facility] [id number] [address]- 5585 24 Jan, 2015 [facility] [id number] [place] [address] 27353- 8538 16 Jan, 2015 [facility] [address] [address]- 7929 08 Jan, 2015 [facility] [id number] [place] [address] 37727- 0316 Jan, [facility] [address] [address]- 0175 07 Jan, 2015 [facility] [address] [address]- 5764 Dec, [facility] [address] [address]- 3117 17 Dec, 2014 Left knee pain M25.562 [facility] [id number] [place] [address] 45925- 6259 Dec, Left knee pain M25.562 [facility] [id number] [place] [address] 24253- 7894 16 Dec, 2014 Fibromyalgia M79.7 ; Hypertension I10 and Arthritis M19.90 [facility] [id number] [place] [address] 76421- 9280 Dec, [facility] [id number] [place] [address] 50733- 0276 Dec, [facility] [id number] [place] [address] 45159- 1829 Dec, [facility] [id number] [place] [address] 06462- 0540 Dec, [facility] [id number] [place] [address] 87973- 4730 Nov, [facility] [id number] [place] [address] 40282- 4058 Nov, [facility] [id number] [place] [address] 01104- 7074 Nov, [facility] [id number] [place] [address] 08194- 0317 Nov, Hypertension I10 [facility] [address] [address]- 7483 23 Oct, 2014 [facility] [id number] [place] [address] 89563- 0558 17 Oct, 2014 [facility] [address] [address]- 6094 Oct, [facility] [id number] [place] [address] 98130- 8403 Oct, [facility] [address] [id number] [place] 7767 Oct, [facility] [address] [id number] [place] 4159 Sep, [facility] [address] [id number] [place] 3788 Sep, [facility] [address] [id number] 3205 Sep, Hip pain associated with recalled total hip arthroplasty hardware 996.77 [facility] [address] [id number] [place] [address]- 8063 Sep, [facility] [address] [id number] [address]- 1049 Sep, [facility] [address] [facility] [id number] [address]- 8252 Sep, [facility] [address] [id number], [place] [address]- 4750 Aug, [facility] [address] [facility] [id number] [place] [address]- 9527 Jul, [facility] [address] [facility] [id number] [address]- 9916 June, [facility] [address] [id number] [address]- 7304 June, [facility] [address] [id number], [place] [address]- 3505 June, [facility] [address] [id number], [place] [address]- 3509 June, [facility] [address] [facility] [id number], [place] [address]- 5116 June, [facility] [address] [id number], [place] [address]- 8810 June, [facility] [place] [facility] [address] [id number] [place] [address]- 9863 30 May, 2014 [facility] [place] [facility] [address] [id number] [place] [address]- 6690 14 May, 2014 [facility] [place] [facility] [address] [id number] [place] [address]- 5220 May, [facility] [place] [facility] [address] [id number] [place] [address]- 2495 30 Apr, 2014 [facility] [place] [facility] [address] [id number] [place] [address]- 6969 30 Apr, 2014 [facility] [place] [facility] [address] [id number] [place] [address]- 2901 Apr, [facility] [place] [facility] [address] [id number] [place] [address]- 2117 Apr, [facility] [place] [facility] [address] [id number] [place] [address]- 0681 Apr, [facility] [place] [facility] [address] [id number] [place] [address]- 0448 Apr, [facility] [place] [facility] [address] [id number] [place] [address]- 1313 Apr, [facility] [place] [facility] [address] [id number] [place] [address]- 6723 Apr, [facility] [place] [facility] [address] [id number] [place] [address]- 8192 Apr, [facility] [place] [facility] [address] [id number] [place] [address]- 1293 Apr, [facility] [place] [facility] [address] [id number] [place] [address]- 9596 Apr, [facility] [place] [facility] [address] [id number] [place] [address]- 5606 Mar, [facility] [place] [facility] [address] [id number] [place] [address]- 7961 Mar, 2014 [facility] [place] [facility] [address] [id number] [place] [address]- 8630 16 Mar, 2014 [facility] [place] [facility] [address] [id number] [place] 4786 16 Mar, 2014 [facility] [place] [facility] [address] [id number] [place] [address]- 8976 Mar, [facility] [place] [facility] [address] [id number] [place] [address]- 1503 Mar, [facility] [place] [facility] [address] [id number] [place] [address]- 8422 Feb, [facility] [place] [facility] [address] [id number] [place] [address]- 9720 Feb, [facility] [place] [facility] [address] [id number] [place] [address]- 5110 Feb, [facility] [place] [facility] [address] [id number] [place] [address]- 3296 Feb, [facility] [place] [facility] [address] [id number] [place] [address]- 3667 Jan, [facility] [place] [facility] [address] [facility] [id number] [place] [address]- 8160 Jan, [facility] [place] [facility] [address] [id number] [place] [address]- 4439 Jan, [facility] [place] [facility] [address] [id number] [place] [address]- 2242 Jan, [facility] [place] [facility] [address] [id number] [place] [address]- 1121 Dec, [facility] [place] [facility] [address] [id number] [place] [address]- 3250 Dec, [facility] [place] [facility] [address] [id number] [place] [address]- 0203 Dec, [facility] [place] [facility] [address] [id number] [place] [address]- 3844 Dec, [facility] [place] [facility] [address] [id number] [place] [address]- 2207 Dec, [facility] [place] [facility] [address] [id number] [place] [address]- 0702 Dec, [facility] [place] [facility] [address] [id number] [place] [address]- 6906 Dec, [facility] [place] [facility] [address] [id number] [place] [address]- 3004 Dec, [facility] [place] [facility] [address] [id number] [place] [address]- 0068 Dec, [facility] [place] [facility] [address] [id number] [place] [address]- 5430 Dec, [facility] [place] [facility] [address] [id number] [place] [address]- 8949 Dec, [facility] [place] [facility] [address] [id number] [place] [address]- 4927 Nov, [facility] [place] [facility] [address] [id number] [place] [address]- 6995 Nov, [facility] [place] [facility] [address] [id number] [place] [address]- 7913 Nov, [facility] [place] [facility] [address] [id number] [place] [address]- 2196 Nov, [facility] [place] [facility] [address] [id number] [place] [address]- 5349 Nov, [facility] [place] [facility] [address] [id number] [place] [address]- 2462 15 Nov, 2013 [facility] [place] [facility] [address] [id number] [place] [address]- 3709 15 Nov, 2013 [facility] [place] [facility] [address] [id number] [place] [address]- 6400 15 Nov, 2013 [facility] [place] [facility] [address] [id number] [place] [address]- 1276 15 Nov, 2013 [facility] [place] [facility] [address] [id number] [place] [address]- 7744 14 Nov, 2013 [facility] [place] [facility] [address] [id number] [place] [address]- 2318 14 Nov, 2013 [facility] [place] [facility] [address] [id number] [place] [address]- 3606 14 Nov, 2013 [facility] [place] [facility] [address] [id number] [place] [address]- 8805 14 Nov, 2013 [facility] [place] [facility] [address] [id number] [place] [address]- 6544 13 Nov, 2013 [facility] [place] [facility] [address] [id number] [place] [address]- 9927 13 Nov, 2013 [facility] [place] [facility] [address] [id number] [place] [address]- 6376 11 Nov, 2013 [facility] [place] [facility] [address] [id number] [place] [address]- 1225 11 Nov, 2013 [facility] [place] [facility] [address] [id number] [place] [address]- 5795 07 Nov, 2013 [facility] [place] [facility] [address] [id number], [place] [address]- 4651 07 Nov, 2013 [facility] [place] [facility] [address] [id number], [place] [address]- 0572 07 Nov, 2013 [facility] [place] [facility] [address] [id number] [place] [address]- 9648 07 Nov, 2013 [facility] [place] [facility] [address] [id number], [place] [address]- 1376 30 Oct, 2013 [facility] [place] [facility] [address] [id number] [place] [address]- 1748 30 Oct, 2013 [facility] [place] [facility] [address] [id number] [place] [address]- 7915 26 Oct, 2013 [facility] [place] [facility] [address] [id number] [place] [address]- 5124 26 Oct, 2013 [facility] [place] [facility] [address] [id number] [place] [address]- 1094 22 Oct, 2013 [facility] [place] [facility] [address] [id number] [place] [address]- 8685 22 Oct, 2013 [facility] [place] [facility] [address] [id number] [place] [address]- 0085 18 Oct, 2013 [facility] [place] [facility] [address] [id number] [place] [address]- 7693 18 Oct, 2013 [facility] [place] [facility] [address] [id number] [place] [address]- 6888 18 Oct, 2013 [facility] [place] [facility] [address] [id number] [place] [address]- 7974 18 Oct, 2013 [facility] [place] [facility] [address] [id number] [place] [address]- 1177 12 Oct, 2013 [facility] [place] [facility] [address] [id number] [place] [address]- 1456 Oct, 2013 [facility] [place] [facility] [address] [id number] [place] [address]- 3211 Oct, 2013 [facility] [place] [facility] [address] [id number] [place] [address]- 2545 Oct, 2013 [facility] [place] [facility] [address] [id number] [place] [address]- 4445 Sep, [facility] [place] [facility] [address] [id number] [place] [address]- 4324 Sep, [facility] [place] [facility] [address] [id number] [place] [address]- 9496 Sep, [facility] [place] [facility] [address] [id number] [place] [address]- 8403 Sep, [facility] [place] [facility] [address] [id number] [place] [address]- 5020 Sep, [facility] [place] [facility] [address] [id number] [place] [address]- 2200 Sep, [facility] [place] [facility] [address] [id number] [place] [address]- 6722 Sep, [facility] [place] [facility] [address] [id number] [place] [address]- 5954 Sep, [facility] [place] [facility] [address] [id number] [place] [address]- 2222 Sep, [facility] [place] [facility] [address] [id number] [place] [address]- 0060 Sep, [facility] [place] [facility] [address] [id number] [place] [address]- 6251 Sep, [facility] [place] [facility] [address] [id number] [place] [address]- 0509 Sep, [facility] [place] [facility] [address] [id number] [place] [address]- 4612 Sep, [facility] [place] [facility] [address] [id number] [place] [address]- 0025 Sep, [facility] [place] [facility] [address] [id number] [place] [address]- 3238 Sep, [facility] [place] [facility] [address] [id number] [place] [address]- 4123 Sep, [facility] [place] [facility] [address] [id number] [place] [address]- 6303 Sep, [facility] [place] [facility] [address] [id number] [place] [address]- 7859 Sep, [facility] [place] [facility] [address] [id number] [place] [address]- 9842 Aug, [facility] [place] [facility] [address] [id number] [place] [address]- 7923 Aug, [facility] [place] [facility] [address] [id number] [place] [address]- 7304 Aug, [facility] [place] [facility] [address] [id number] [place] [address]- 3426 Aug, [facility] [place] [facility] [address] [id number] [place] [address]- 1014 Aug, [facility] [place] [facility] [address] [id number] [place] [address]- 8190 Aug, [facility] [place] [facility] [address] [id number] [place] [address]- 9445 Jul, [facility] [place] [facility] [address] [id number] [place] [address]- 5609 Jul, [facility] [place] [facility] [address] [id number] [place] [address]- 3920 Jul, [facility] [place] [facility] [address] [id number] [place] [address]- 4920 Jul, [facility] [place] [facility] [address] [id number] [place] [address]- 8419 June, [facility] [place] [facility] [address] [id number] [place] [address]- 2994 June, [facility] [place] [facility] [address] [id number] [place] [address]- 1314 June, [facility] [place] [facility] [address] [id number] [place] [address]- 5109 June, [facility] [place] [facility] [address] [id number] [place] [address]- 0308 June, [facility] [place] [facility] [address] [id number] [place] [address]- 4824 June, [facility] [place] [facility] [address] [id number] [place] [address]- 4201 June, [facility] [place] [facility] [address] [id number] [place] [address]- 7969 29 May, 2013 [facility] [place] [facility] [address] [id number] [place] [address]- 6786 29 May, 2013 [facility] [place] [facility] [address] [id number] [place] [address]- 5166 May, [facility] [place] [facility] [address] [id number] [place] [address]- 2850 May, [facility] [place] [facility] [address] [id number] [place] [address]- 0669 May, [facility] [place] [facility] [address] [id number] [place] [address]- 1162 May, [facility] [place] [facility] [address] [id number] [place] [address]- 0918 31 Apr, 2013 [facility] [place] [facility] [address] [id number] [place] [address]- 6524 31 Apr, 2013 [facility] [place] [facility] [address] [id number] [place] [address]- 9622 28 Apr, 2013 [facility] [place] [facility] [address] [id number] [place] [address]- 8690 28 Apr, 2013 [facility] [place] [facility] [address] [id number] [place] [address]- 3536 14 Apr, 2013 [facility] [place] [facility] [address] [id number] [place] [address]- 5470 14 Apr, 2013 [facility] [place] [facility] [address] [id number] [place] [address]- 2912 12 Apr, 2013 [facility] [place] [facility] [address] [id number] [place] 8626 12 Apr, 2013 [facility] [place] [facility] [address] [id number] [place] [address]- 6956 10 Apr, 2013 [facility] [place] [facility] [address] [id number] [place] [address]- 1148 Apr, [facility] [place] [facility] [address] [id number] [place] [address]- 7469 Apr, [facility] [place] [facility] [address] [id number] [place] [address]- 3328 Apr, [facility] [place] [facility] [address] [id number] [place] 1803 Apr, [facility] [place] [facility] [address] [id number] [place] [address]- 1996 Apr, [facility] [place] [facility] [address] [id number] [place] [address] Mar, [facility] [place] [facility] [address] [id number] [place] [address] Mar, [facility] [place] [facility] [address] [id number] [place] [address] Mar, [facility] [place] [facility] [address] [id number] [place] [address] Feb, [facility] [place] [facility] [address] [id number] [place] [address] Feb, [facility] [place] [facility] [address] [id number] [place] [address] Feb, [facility] [place] [facility] [address] [id number] [place] [address] Feb, [facility] [place] [facility] [address] [id number] [place] [address] Feb, [facility] [place] [facility] [address] [id number] [place] [address] Feb, [facility] [place] [facility] [address] [id number] [place] [address] Feb, [facility] [place] [facility] [address] [id number] [place] [address] Feb, [facility] [place] [facility] [address] [id number] [place] [address] Feb, [facility] [address] [id number] [place] [address] Feb, [facility] [address] [id number] [place] [address] Jan, [facility] [address] [id number] [place] [address] Jan, [facility] [address] [id number] [place] [address] 69[address] Jan, [facility] [address] [id number] [place] [address] Jan, [facility] [address] [id number] [place] [address] Jan, [facility] [address] [id number] [place] [address] Jan, [facility] [place] [facility] [address] [id number] [place] [address] Jan, [facility] [address] [id number] [place] [address] Jan, [facility] [place] [facility] [address] [id number] [place] [address] Jan, [facility] [address] [id number] [place] [address]- [address] 19 Jan, 2013 [facility] [address] [id number] [place] [address]- [address] 17 Jan, 2013 [facility] [address] [id number] [place] [address] 17 Jan, 2013 [facility] [address] [id number] [place] [address] 16 Jan, 2013 [facility] [address] [id number] [place] [address] Jan, [facility] [address] [id number] [place] [address] Jan, [facility] [place] [facility] [address] [id number] [place] [address] Jan, [facility] [place] [facility] [address] [id number] [place] [address]- [address] Jan, [facility] [place] [facility] [address] [id number] [place] [address] 18[address] Jan, [facility] [place] [facility] [address] [id number] [place] [address] 4[address] Jan, [facility] [place] [facility] [address] [id number] [place] [address] Jan, [facility] [place] [facility] [address] [id number] [place] [address] 83[address] Jan, [facility] [place] [facility] [address] [id number], [place] [address] Dec, [facility] [place] [facility] [address] [id number] [place] [address]- 9815 Dec, [facility] [place] [facility] [address] [id number], [place] [address]- [address] Dec, [facility] [place] [facility] [address] [id number], [place] [address]- [address] Dec, [facility] [place] [facility] [address] [id number], [place] [address] Dec, [facility] [place] [facility] [address] [id number], [place] [address] Dec, [facility] [place] [facility] [address] [id number], [place] [address] Dec, [facility] [place] [facility] [address] [id number], [place] [address]- [address] Dec, [facility] [place] [facility] [address] [id number], [place] [address]- 8510 Dec, [facility] [place] [facility] [address] [id number] [place] [address]- [address]256 Dec, [facility] [place] [facility] [address] [id number] [place] [address]- [address]678 Nov, [facility] [place] [facility] [address] [id number] [place] [address]- 69[address] Nov, [facility] [place] [facility] [address] [id number] [place] [address]- 117[address] Nov, [facility] [place] [facility] [address] [id number] [place] [address]- [address] Nov, [facility] [place] [facility] [address] [id number] [place] [address]- [address] Nov, [facility] [place] [facility] [address] [id number] [place] [address]- 3518 Nov, [facility] [place] [facility] [address] [id number] [place] [address]- 1098 Nov, [facility] [place] [facility] [address] [id number] [place] [address]- [address] Nov, [facility] [place] [facility] [address] [facility] [id number], [place] [address] Nov, [facility] [place] [facility] [address] [id number], [place] [address]- [address] Nov, [facility] [place] [facility] [address] [id number], [place] [address] Oct, [facility] [place] [facility] [address] [id number] [place] [address]- [address] Oct, [facility] [place] [facility] [address] [id number] [place] [address]- [address] Oct, [facility] [place] [facility] [address] [facility] [id number] [place] [address]- [address] 25 Oct, 2012 [facility] [place] [facility] [address] [id number] [place] [address] Oct, [facility] [place] [facility] [address] [id number] [place] [address] Sep, [facility] [place] [facility] [address] [id number] [place] [address] Sep, [facility] [place] [facility] [address] [id number] [place] [address] Aug, [facility] [place] [facility] [address] [id number] [place] [address] 12[address] Aug, [facility] [place] [facility] [address] [id number] [place] [address] Aug, [facility] [place] [facility] [address] [id number] [place] [address] Aug, [facility] [place] [facility] [address] [id number] [place] [address] Aug, [facility] [place] [facility] [address] [id number] [place] [address] 94[address] Aug, [facility] [place] [facility] [address] [id number] [place] [address] 8418 Aug, [facility] [place] [facility] [address] [id number] [place] [address] 44[address] Jul, [facility] [place] [facility] [address] [id number] [place] [address] 7945 Jul, [facility] [place] [facility] [address] [id number] [place] [address] 6569 June, [facility] [place] [facility] [address] [id number] [place] [address]- 2659 June, [facility] [place] [facility] [address] [id number] [place] [address] June, [facility] [place] [facility] [address] [id number] [place] [address]- 7745 June, [facility] [address] [id number] [place] [address]- 4[address] June, [facility] [place] [facility] [address] [id number] [place] [address]- 8239 June, [facility] [place] [facility] [address] [id number] [place] [address] June, [facility] [place] [facility] [address] [id number] [place] [address]- 9106 June, [facility] [place] [facility] [address] [id number] [place] [address]- 5936 June, [facility] [place] [facility] [address] [id number] [place] [address]- 6189 June, [facility] [place] [facility] [address] [id number] [place] [address]- 7840 June, [facility] [place] [facility] [address] [id number] [place] [address]- 4541 May, [facility] [place] [facility] [address] [id number] [place] [address]- 9870 May, [facility] [place] [facility] [address] [id number] [place] [address]- 2886 May, [facility] [place] [facility] [address] [id number] [place] [address]- 3148 May, [facility] [place] [facility] [address] [id number] [address] Apr, [facility] [place] [facility] [address] [id number] [place] [address]- 0738 Apr, [facility] [place] [facility] [address] [id number] [place] [address]- 1014 Apr, [facility] [place] [facility] [address] [id number] [place] [address]- 0323 Mar, [facility] [place] [facility] [address] [id number] [place] [address]- 2153 11 Mar, 2012 [facility] [address] [id number] [place] [address]- 7267 Feb, [facility] [place] [facility] [address] [id number] [place] [address]- 6276 Feb, [facility] [address] [id number] [place] [address] 3[address] Feb, [facility] [place] [facility] [address] [id number] [place] [address]- 8576 Feb, [facility] [address] [id number] [place] [address]- 4195 16 Feb, 2012 [facility] [address] [id number] [place] [address]- 7291 Feb, [facility] [address] [id number] [place] [address]- 9793 Feb, [facility] [address] [id number] [place] [address]- 7438 Jan, [facility] [address] [id number] [place] [address]- 3262 31 Jan, 2012 [facility] [address] [id number] [place] [address]- 1543 28 Jan, 2012 [facility] [address] [id number] [place] [address]- 2076 17 Jan, 2012 [facility] [address] [id number] [place] [address] 17 Jan, 2012 [facility] [place] [facility] [address] [id number] [place] [address] 1977 Jan, [facility] [address] [id number] [place] [address]- 254 Jan, [facility] [address] [id number] [place] [address]- 9920 Jan, [facility] [place] [facility] [address] [id number] [place] [address]- 3713 Jan, [facility] [place] [facility] [address] [id number] [place] [address] Jan, [facility] [place] [facility] [address] [id number] [place] [address]- 2129 Jan, [facility] [place] [facility] [address] [id number] [place] [address]- 7504 Dec, [facility] [place] [facility] [address] [id number] [place] [address]- 2962 Dec, [facility] [place] [facility] [address] [id number] [place] [address]- 4506 Dec, [facility] [place] [facility] [address] [id number] [place] [address]- 0402 Dec, [facility] [place] [facility] [address] [id number] [place] [address]- 3441 Nov, [facility] [place] [facility] [address] [id number] [place] [address]- 5040 Nov, [facility] [place] [facility] [address] [id number] [place] [address]- 8854 Nov, [facility] [place] [facility] [address] [id number] [place] [address]- 6715 27 Oct, 2011 [facility] [place] [facility] [address] [id number] [place] [address]- 2226 24 Sep2011 [facility] [place] [facility] [address] [id number] [place] [address]- 8447 21 Oct, 2011 [facility] [place] [facility] [address] [id number] [place] [address]- 9216 10 Oct, 2011 [facility] [place] [facility] [address] [id number] [place] [address] 07 Oct, 2011 [facility] [place] [facility] [address] [id number] [place] [address]- 7370 Oct, [facility] [place] [facility] [address] [id number] [place] [address]- 2010 Oct, [facility] [place] [facility] [address] [id number] [place] [address]- 9736 Sep, [facility] [place] [facility] [address] [id number] [place] [address]- 6396 Sep, [facility] [place] [facility] [address] [id number] [place] [address]- 6191 Sep, [facility] [place] [facility] [address] [id number] [place] [address]- 9849 Sep, [facility] [place] [facility] [address] [id number] [place] [address]- 4217 Sep, [facility] [place] [facility] [address] [id number] [place] [address]- 8815 Aug, [facility] [place] [facility] [address] [id number] [place] [address]- 9502 Aug, [facility] [place] [facility] [address] [id number] [place] [address]- 2619 Aug, [facility] [place] [facility] [address] [id number] [place] [address]- 9470 Aug, [facility] [place] [facility] [address] [id number] [place] [address]- 7423 Aug, [facility] [place] [facility] [address] [id number] [place] [address]- 5381 Aug, [facility] [place] [facility] [address] [id number] [place] [address]- 4933 Aug, [facility] [place] [facility] [address] [id number] [place] [address]- 2594 Jul, [facility] [place] [facility] [address] [id number] [place] [address]- 0568 Jul, [facility] [place] [facility] [address] [id number] [place] [address]- 5625 22 Jul, 2011 [facility] [address] [id number] [place] [address]- 6016 Jul, [facility] [place] [facility] [address] [id number] [place] [address]- 2726 Jul, [facility] [place] [facility] [address] [id number] [place] [address]- 8023 Jul, [facility] [place] [facility] [address] [id number] [place] [address]- 6755 07 Jul, 2011 [facility] [place] [facility] [address] [id number] [place] [address] Jul, [facility] [address] [id number] [place] [address]- 1516 Jul, [facility] [address] [id number] [place] [address]- 9606 June, [facility] [address] [id number] [place] [address]- 4372 June, [facility] [address] [id number] [place] [address]- 4234 June, [facility] [address] [id number] [place] [address]- 4203 June, [facility] [place] [facility] [address] [id number] [place] [address]- 2352 June, [facility] [address] [id number] [place] [address]- 3050 June, [facility] [place] [facility] [address] [id number] [place] [address]- 9284 June, [facility] [place] [facility] [address] [id number] [place] [address]- 0436 June, [facility] [place] [facility] [address] [id number] [place] [address]- 7878 May, [facility] [place] [facility] [address] [id number] [place] [address]- 3555 May, [facility] [place] [facility] [address] [id number] [place] [address]- 4856 May, [facility] [place] [facility] [address] [id number] [place] [address]- 7086 May, [facility] [place] [facility] [address] [id number] [place] [address]- 8649 May, [facility] [place] [facility] [address] [id number] [place] [address]- 6529 May, [facility] [place] [facility] [address] [id number] [place] [address]- 8185 May, [facility] [place] [facility] [address] [id number] [place] [address]- 9749 Apr, [facility] [place] [facility] [address] [id number] [place] [address]- 1128 Apr, [facility] [place] [facility] [address] [id number] [place] [address]- 1485 Apr, [facility] [place] [facility] [address] [id number] [place] [address]- 8190 Apr, [facility] [place] [facility] [address] [id number] [place] [address]- 8076 Apr, [facility] [place] [facility] [address] [id number] [place] [address]- 1716 Apr, [facility] [place] [facility] [address] [id number] [place] [address]- 7690 Apr, [facility] [place] [facility] [address] [id number] [place] [address]- 4213 Mar, [facility] [place] [facility] [address] [id number] [place] [address]- 9877 Mar, [facility] [place] [facility] [address] [id number] [place] [address]- 7159 14 Mar, 2011 [facility] [address] [id number] [place] [address]- 6636 13 Mar, 2011 [facility] [address] [id number] [place] [address] 2546 09 Mar, 2011 [facility] [address] [id number] [place] [address]- 8526 Mar, [facility] [address] [id number] [place] [address] 254 Mar, [facility] [address] [id number] [place] [address]- 4124 Feb, [facility] [address] [id number] [place] [address]- 6661 Feb, [facility] [address] [id number] [place] [address]- 7437 Feb, [facility] [place] [facility] [address] [id number] [place] [address]- 6024 Feb, [facility] [address] [id number] [place] [address]- 2952 Feb, [facility] [place] [facility] [address] [facility] [id number] [place] [address]- 7589 Feb, [facility] [place] [facility] [address] [id number] [place] [address]- 0827 Feb, [facility] [address] [id number] [place] [address]- 4976 Feb, [facility] [address] [id number] [place] [address]- 3195 Feb, [facility] [address] [id number] [place] [address]- 4446 Feb, [facility] [address] [id number] [place] [address] Jan, [facility] [place] [facility] [address] [id number] [place] [address]- 9562 Jan, [facility] [place] [facility] [address] [id number] [place] [address]- 6850 Jan, [facility] [place] [facility] [address] [id number] [place] [address]- 9031 Jan, [facility] [place] [facility] [address] [id number] [place] [address]- 8930 Jan, [facility] [place] [facility] [address] [id number] [place] [address]- 2279 Jan, [facility] [place] [facility] [address] [id number] [place] [address]- 8318 Jan, [facility] [place] [facility] [address] [id number] [place] [address]- 9493 Jan, [facility] [place] [facility] [address] [id number] [place] [address]- 0825 Jan, [facility] [place] [facility] [address] [id number] [place] [address]- 4164 Jan, [facility] [place] [facility] [address] [id number] [place] [address]- 4243 Jan, [facility] [place] [facility] [address] [id number], [place] [address]- 7362 17 Dec, 2010 [facility] [place] [facility] [address] [id number], [place] [address]- 5573 17 Dec, 2010 [facility] [place] [facility] [address] [id number] [place] [address]- 8939 17 Dec, 2010 [facility] [place] [facility] [address] [id number] [place] [address]- 1920 16 Dec, 2010 [facility] [place] [facility] [address] [id number], [place] [address]- 7673 14 Dec, 2010 [facility] [place] [facility] [address] [id number], [place] [address]- 6252 Dec, [facility] [place] [facility] [address] [id number] [place] [address]- 4793 Dec, [facility] [place] [facility] [address] [id number] [place] [address]- 0439 Dec, [facility] [place] [facility] [address] [facility] [id number] [place] [address]- 8562 Dec, [facility] [place] [facility] [address] [id number] [place] [address]- 8768 Nov, [facility] [place] [facility] [id number] [place] [address], [place] [address]- 0490 Nov, [facility] [place] [facility] [address] [id number] [place] [address]- 1981 Nov, [facility] [place] [facility] [address] [facility] [id number] [place] [address]- 8254 Nov, [facility] [place] [facility] [address] [id number] [place] [address]- 9579 24 Nov, 2010 [facility] [place] [facility] [address] [facility] [id number] [place] [address]- 7254 Nov, [facility] [place] [facility] [address] [facility] [id number] [place] [address]- 4731 Aug, [facility] [place] [facility] [address] [id number], [place] [address]- 3657 14 Feb, 2010 [facility] [place] [facility] [address] [id number], [place] [address]- 2522 14 Jan, 2010 [facility] [place] [facility] [address] [id number] [place] [address]- 2369 Jan, [facility] [place] [facility] [address] [facility] [id number] [place] [address]- 8808 Jan, [facility] [place] [facility] [address] [facility] [id number] [place] 7723 Jan, [facility] [place] [facility] [address] [id number], [place] [address] 2546 Jan, [facility] [address] [id number], [place] [address]- 1744 Dec, [facility] [address] [facility] [id number], [place] [address]- 3596 Dec, [facility] [id number], [place] [address]- 3299 Dec, [facility] [id number], [place] [address]- 5633 Dec, [facility] [id number], [place] [address]- 7857 Nov, [facility] [id number], [place] [address]- 5069 Nov, [facility] [id number], [place] [address]- 3683 Nov, IMMUNIZATIONS No Known Immunizations SOCIAL HISTORY Never Assessed REASON FOR VISIT Controlled meds x's - 05/06 PLAN OF CARE VITAL SIGNS MEDICATIONS Medication Instructions Dosage Frequency Start Date End Date Duration Status Klonopin 1 MG Orally 3 times a day 1 tablet 8h 28 days Active Fentanyl 50 MCG/HR Transdermal 72hrs 1 patch to skin Apr, 30 days Active Lyrica 150 MG Orally 3 times a day 1 capsule 8h 28 days Active RESULTS No Results PROCEDURES No [...]
--- OUTSIDE RECORDS SUMMARY | 2018-01-13 21:04 | XMS REPORT ---
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 Active 214003293 Problem Hypertension I10 Active 78909332 Problem Arthritis M19.90 Active 8259458 Problem 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 Active 92667092 Problem Anxiety F41.9 Active 55509065 Problem Unspecified episodic mood disorder F39 Active 85073225 Problem Left hip pain M25.552 Active 46022035 ALLERGIES No Information ENCOUNTERS Encounter Location Date Diagnosis [facility] [address] [id number] [id number] Aug, [facility] [address] [facility] [id number] [place] [address] Aug, Arthritis M19.90 [facility] [address] [facility] [id number] [address] Aug, [facility] [id number] [place] [address] 90041- 3773 Aug, Obesity (BMI 30.0-34.9) E66.9 ; Unspecified episodic mood disorder F39 and Hypertension I10 [facility] [id number] [place] [address] 56427- 1317 Aug, Unspecified episodic mood disorder F39 [facility] [id number] [place] [address] 75515- 6646 Aug, [facility] [id number] [place] [address] 73331- 1716 Jul, Unspecified episodic mood disorder F39 [facility] [id number] [place] [address] 97650- 7750 Jul, [facility] [id number] [place] [address] 31235- 1827 Jul, Arthritis M19.90 [facility] [id number] [place] [address] 22547- 6012 Jul, Left hip pain M25.552 ; Hypertension I10 ; Other obesity due to excess calories E66.09 and Body mass index (BMI) of 34.0-34.9 in adult Z68.34 [facility] [id number] [place] [address] 34621- 4820 Jul, Unspecified episodic mood disorder F39 [facility] [id number] [place] [address] 71906- 3969 June, Gastroesophageal reflux disease, esophagitis presence not specified K21.9 [facility] [id number] [place] [address] 22895- 0237 June, [facility] [id number] [place] [address] 39637- 5635 June, [facility] [id number] [place] [address] 29236- 5551 June, Arthritis M19.90 [facility] [address] [address] 8228 June, [facility] [id number] [place] [address] 00905- 0888 June, [facility] [id number] [place] [address] 72116- 4758 June, Unspecified episodic mood disorder F39 [facility] [id number] [place] [address] 67348- 9044 May, Unspecified episodic mood disorder F39 [facility] [id number] [place] [address] 49583- 8725 May, [facility] [id number] [place] [address] 10652- 8272 May, Arthritis M19.90 [facility] [id number] [place] [address] 93518 -2867 May, Dysuria R30.0 ; Abscess L02.91 and Acute cystitis without hematuria N30.00 [facility] [address] [place] [address] 84177- 9752 May, Other disorder of impulse control F63.89 ; Unspecified episodic mood disorder F39 ; Combined drug dependence excluding opioids, 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 ; Anxiety F41.9 and Other psychoactive substance dependence, 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 [facility] [address] [place] [address] 02046- 0106 May, [facility] [address] [place] [address] 76221- 3613 May, Other disorder of impulse control F63.89 ; Unspecified episodic mood disorder F39 ; Combined drug dependence excluding opioids, 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 ; Other psychoactive substance dependence, 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552 and Fall, initial encounter W19.XXXA [facility] [id number] [place] [address] 23564- 1097 Apr, Unspecified episodic mood disorder F39 ; Combined drug dependence excluding opioids, 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 ; Anxiety F41.9 ; Other psychoactive substance dependence, 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 and Other disorder of impulse control F63.89 [facility] [id number] [place] [address] 81549- 8303 Apr, [facility] [id number] [place] [address] 48440- 7199 Apr, Arthritis M19.90 and Unspecified episodic mood disorder F39 [facility] [id number] [place] [address] 28600- 5462 Apr, Unspecified episodic mood disorder F39 [facility] [id number] [place] [address] 49466- 0546 Apr, [facility] [id number] [place] [address] 59793- 6694 Apr, [facility] [id number] [place] [address] 58781- 1063 Apr, Unspecified episodic mood disorder F39 ; Combined drug dependence excluding opioids, 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 ; Anxiety F41.9 ; Other psychoactive substance dependence, 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 and Other disorder of impulse control F63.89 [facility] [id number] [place] [address] 18098- 4748 Mar, Unspecified episodic mood disorder F39 [facility] [address] [address] 6492 Mar, Gastroesophageal reflux disease, esophagitis presence not specified K21.9 [facility] [address] [address] 0256 Mar, Arthritis M19.90 and Unspecified episodic mood disorder F39 [facility] [id number] [place] [address] 41816- 8466 Feb, [facility] [id number] [place] [address] 64205- 9882 Feb, [facility] [id number] [place] [address] 05930- 6444 Feb, [facility] [id number] [place] [address] 29085- 0985 Feb, Arthritis M19.90 [facility] [id number] [place] [address] 21078- 5918 Feb, Non-pressure chronic ulcer of right calf, 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 ; Unspecified episodic mood disorder F39 and Left hip pain M25.552 [facility] [address] [address] 1330 Feb, [facility] [id number] [place] [address] 16782- 0679 Feb, [facility] [id number] [place] [address] 03746- 6709 Jan, Arthritis M19.90 [facility] [id number] [place] [address] 98192- 0321 Jan, Left hip pain M25.552 and Non-pressure chronic ulcer of right calf, 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 [facility] [address] [address] 4038 Jan, Chronic hepatitis C without hepatic coma B18.2 [facility] [id number] [place] [address] 96035- 2146 Jan, Encounter for immunization Z23 ; Venous insufficiency ( chronic) (peripheral) I87.2 ; Non-pressure chronic ulcer of unspecified calf limited to breakdown of skin L97.201 and Gastroesophageal reflux disease, esophagitis presence not specified K21.9 [facility] [id number] [place] [address] 39711- 9854 Jan, [facility] [id number] [place] [address] 59203- 1448 Jan, Chronic hepatitis C without hepatic coma B18.2 and Encounter for immunization Z23 [facility] [id number] [place] [address] 66118- 3268 Jan, Arthritis M19.90 [facility] [id number] [place] [address] 92529- 6292 Jan, [facility] [id number] [place] [address] 28986- 4076 Dec, [facility] [id number] [place] [address] 98542- 3791 Dec, Unspecified episodic mood disorder F39 [facility] [id number] [place] [address] 24339- 0688 Dec, Arthritis M19.90 [facility] [id number] [place] [address] 63375- 8242 Dec, Arthritis M19.90 [facility] [id number] [place] [address] 42626- 0281 Nov, [facility] [id number] [place] [address] 33625- 1602 Nov, [facility] [id number] [place] [address] 38022- 6117 Nov, Other psychoactive substance dependence, 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 ; 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, 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 and Chronic hepatitis C without hepatic coma B18.2 [facility] [id number] [place] [address] 91578- 6027 Nov, Arthritis M19.90 [facility] [id number] [place] [address] 19537 -9375 Oct, Partial thickness burn of abdomen, initial encounter T21.22XA [facility] [id number] [place] [address] 43534- 8120 Oct, [facility] [id number] [place] [address] 72557- 4679 Sep, Arthritis M19.90 [facility] [id number] [place] [address] 35131- 4936 Sep, [facility] [id number] [place] [address] 73154- 2816 Sep, [facility] [id number] [place] [address] 22705- 8695 Sep, Unspecified episodic mood disorder F39 ; Chronic hepatitis C without hepatic coma B18.2 and Left hip pain M25.552 [facility] [id number] [place] [address] 31966- 1256 Sep, Arthritis M19.90 and Left hip pain M25.552 [facility] [id number] [place] [address] 07061- 1712 Aug, [facility] [id number] [place] [address] 91321- 6442 Aug, [facility] [id number] [place] [address] 22379- 3478 Aug, Chronic hepatitis C without hepatic coma B18.2 [facility] [id number] [place] [address] 91840- 2562 Aug, [facility] [id number] [place] [address] 82892- 7000 Aug, Chronic hepatitis C without hepatic coma B18.2 [facility] [id number] [place] [address] 83622- 8900 Aug, 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, 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 [facility] [id number] [place] [address] 80641- 1644 Aug, [facility] [id number] [place] [address] 07244- 1365 Aug, Chronic hepatitis C without hepatic coma B18.2 and Hypertension I10 [facility] [id number] [place] [address] 98367- 9687 Jul, [facility] [id number] [place] [address] 75236- 2305 June, [facility] [id number] [place] [address] 75469- 0605 Apr, Fibromyalgia M79.7 ; Left hip pain M25.552 and Decubitus ulcer of sacral region, stage 1 L89.151 [facility] [id number] [place] [address] 88753- 2426 Apr, [facility] [id number] [place] [address] 68324- 4263 Apr, [facility] [id number] [place] [address] 88949- 8299 Feb, [facility] [id number] [place] [address] 53391- 6686 Dec, Anxiety F41.9 ; Combined drug dependence excluding opioids, 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 and Unspecified episodic mood disorder F39 [facility] [address] [place] [address] 50237- 3361 Dec, [facility] [id number] [place] [address] 39586- 6712 Nov, [facility] [id number] [place] [address] 77596- 5436 Nov, [facility] [id number] [place] [address] 45751- 5611 Nov, Other disorder of impulse control F63.89 and Anxiety F41.9 [facility] [id number] [place] [address] 69229- 3940 Oct, [facility] [id number] [place] [address] 10396 -0181 14 Oct, 2015 Open wound of left thigh, initial encounter S71.102A [facility] [id number] [place] [address] 06720- 7925 Oct, [facility] [id number] [place] [address] 00066- 0883 Sep, Unspecified episodic mood disorder F39 ; Other disorder of impulse control 312.39 ; Combined drug dependence excluding opioids, 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 and Anxiety F41.9 [facility] [address] [place] [address] 99072- 4604 Sep, Other disorder of impulse control 312.39 ; Combined drug dependence excluding opioids, 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 ; Anxiety F41.9 and Unspecified episodic mood disorder F39 [facility] [address] [place] [address] 19895- 2658 Sep, Other chronic pain G89.29 [facility] [id number] [place] [address] 18716- 4042 Sep, [facility] [id number] [place] [address] 51753- 6960 Sep, [facility] [id number] [place] [address] 49730- 3089 Aug, [facility] [id number] [place] [address] 18894- 4271 Aug, [facility] [id number] [place] [address] 53961- 5842 Aug, [facility] [id number] [place] [address] 03101- 5273 Jul, [facility] [id number] [place] [address] 26918- 0023 Jul, [facility] [id number] [place] [address] 24336- 7418 Jul, [facility] [id number] [place] [address] 93308- 6680 Jul, Arthritis M19.90 ; Chronic hepatitis C without hepatic coma B18.2 and Left hip pain M25.552 [facility] [id number] [place] [address] 06764- 7167 Jul, Left knee pain M25.562 [facility] [id number] [place] [address] 79716- 6589 Jul, Combined drug dependence excluding opioids, 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 ; Anxiety F41.9 ; Other disorder of impulse control 312.39 and Unspecified episodic mood disorder F39 [facility] [id number] [place] [address] 65907- 9080 Jul, Left knee pain M25.562 [facility] [address] [place] [address] 42045- 4591 Jul, Left knee pain M25.562 and Left hip pain M25.552 [facility] [address] [place] [address] 86535- 3680 Jul, [facility] [address] [place] [address] 58893- 6753 June, [facility] [id number] [place] [address] 13243- 6314 June, Combinations of drug dependence excluding opioid type drug, unspecified abuse 304.80 ; Other disorder of impulse control 312.39 ; Unspecified episodic mood disorder F39 and Anxiety F41.9 [place] [address] [address]- 6174 June, Other fatigue R53.83 ; Headache R51 and Left knee pain M25.562 [facility] [id number] [place] [address] 44358- 7233 June, Unspecified episodic mood disorder F39 ; Combinations of drug dependence excluding opioid type drug, unspecified abuse 304.80 ; Other disorder of impulse control 312.39 and Anxiety F41.9 [facility] [id number] [place] [address] 64584- 9663 June, Anxiety F41.9 [place] [id number] [place] [address] 56966- 3870 June, Pain in left knee M25.562 [place] [id number] [place] [address] 33833- 6629 June, Anxiety F41.9 and Combinations of drug dependence excluding opioid type drug, unspecified abuse 304.80 [place] [address] [place] [address] 80653- 5864 June, Unspecified episodic mood disorder 296.90 ; Combinations of drug dependence excluding opioid type drug, unspecified abuse 304.80 and Other disorder of impulse control 312.39 [place] [address] [address]- 8780 June, Anxiety F41.9 and Unspecified episodic mood disorder 296.90 [facility] [address] [place] [address] 17372- 6208 May, Arthritis M19.90 [facility] [id number] [place] [address] 90256- 6555 May, Arthritis M19.90 [facility] [address] [place] [address] 78569- 4332 May, Anxiety F41.9 ; Combinations of drug dependence excluding opioid type drug, unspecified abuse 304.80 and Other disorder of impulse control 312.39 [place] [address] [address]- 5901 18 May, 2015 Left knee pain M25.562 [facility] [address] [address]- 1233 14 May, 2015 Arthritis M19.90 [facility] [address] [address]- 2256 May, [facility] [address] [place] [address] 35063- 1393 May, Anxiety F41.9 ; Unspecified episodic mood disorder 296.90 ; Combinations of drug dependence excluding opioid type drug, unspecified abuse 304.80 and Other disorder of impulse control 312.39 [facility] [address] [address]- 8238 May, Left knee pain M25.562 [facility] [address] [place] [address] 32579- 5642 11 May, 2015 Left knee pain M25.562 ; Combinations of drug dependence excluding opioid type drug, unspecified abuse 304.80 ; Other disorder of impulse control 312.39 ; Fibromyalgia M79.7 ; Hypertension I10 ; Unspecified episodic mood disorder 296.90 and Left hip pain M25.552 [facility] [address] [address]- 5341 May, Unspecified episodic mood disorder 296.90 ; Other disorder of impulse control 312.39 ; Combinations of drug dependence excluding opioid type drug, unspecified abuse 304.80 and Anxiety F41.9 [facility] [address] [place] [address] 82631- 8482 May, Left knee pain M25.562 ; Combinations of drug dependence excluding opioid type drug, unspecified abuse 304.80 ; Other disorder of impulse control 312.39 ; Fibromyalgia M79.7 ; Hypertension I10 ; Unspecified episodic mood disorder 296.90 and Left hip pain M25.552 [facility] [address] [place] [address] 41601- 8979 May, Anxiety F41.9 ; Unspecified episodic mood disorder 296.90 ; Other disorder of impulse control 312.39 and Combinations of drug dependence excluding opioid type drug, unspecified abuse 304.80 [facility] [address] [place] [address] 24117- 1488 30 Apr, 2015 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 and 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, implants and grafts, initial encounter T84.82XA [facility] [id number] [place] [address] 07387- 5460 Apr, Anxiety F41.9 ; Unspecified episodic mood disorder 296.90 ; Combinations of drug dependence excluding opioid type drug, unspecified abuse 304.80 and Other disorder of impulse control 312.39 [facility] [id number] [place] [address] 62283- 0029 Apr, Arthritis M19.90 [facility] [id number] [place] [address] 38848- 2201 Apr, Anxiety F41.9 ; Unspecified episodic mood disorder 296.90 ; Combinations of drug dependence excluding opioid type drug, unspecified abuse 304.80 and Other disorder of impulse control 312.39 [facility] [id number] [place] [address] [phone] 17 Apr, 2015 Arthritis M19.90 [facility] [id number] [place] [address] [phone] 15 Apr, 2015 [facility] [id number] [place] [address] [phone] 15 Apr, 2015 [facility] [id number] [place] [address] [phone] 14 Apr, 2015 Unspecified episodic mood disorder 296.90 ; Combinations of drug dependence excluding opioid type drug, unspecified abuse 304.80 ; Other disorder of impulse control 312.39 and Anxiety F41.9 [facility] [id number] [place] [address] [phone] 11 Apr, 2015 Left knee pain M25.562 [address] [address] [address] [id number] [place] [address]305- 2701 11 Apr, 2015 [place] [address] [place] [id number]- 6858 Mar, Unspecified episodic mood disorder 296.90 ; Anxiety F41.9 ; Other disorder of impulse control 312.39 and Combinations of drug dependence excluding opioid type drug, unspecified abuse 304.80 [place] [address] [place] [address] [id number] [place] [address] 56575- 7718 Mar, Hyperpigmentation L81.9 [place] [id number] [place] [address] 95288- 5853 Mar, Arthritis M19.90 and Anxiety F41.9 [place] [address] 6[address]- 3884 Mar, Unspecified episodic mood disorder F39 ; Combined drug dependence excluding opioids, 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 ; Other disorder of impulse control F63.89 and Anxiety F41.9 [place] [id number] [place] [address] 35060- 0940 12 Mar, 2015 Well woman exam Z01.419 ; Other fatigue R53.83 ; Hot flashes N95.1 ; Depression, unspecified depression type F32.9 and Body mass index (BMI) of 23.0-23.9 in adult Z68.23 [place] [id number] [place] [address] 16033- 8225 11 Mar, 2015 Unspecified episodic mood disorder 296.90 ; Other disorder of impulse control 312.39 and Anxiety F41.9 [place] [address] [id number] [place] [address] 30266- 1130 11 Mar, 2015 Well woman exam Z01.419 [...] of breast Z12.39 and Limited mobility Z74.[address] [address]- 5468 Mar, [place] [address] 25664- 1873 Mar, [address] 8[address]69- 8418 Mar, [address] 58333- 7729 Mar, Other specified complication of internal orthopedic prosthetic devices, implants and grafts, initial encounter T84.89XA ; Fibromyalgia M79.7 ; Hypertension I10 ; Anemia D64.9 ; Insomnia G47.00 ; Anxiety F41.9 ; Arthritis M19.90 and Migraine G43.909 [place] [address] 07482- 3564 Mar, [place] [address] 77342- 2021 Feb, [place] [address] 87114- 6734 Feb, Arthritis M19.90 and Anxiety F41.[address] 16008- 8138 Feb, [place] [address] 44275- 5048 Feb, [place] [address] 83758- 3572 Feb, [facility] [address] [facility] [id number] [place] [address]- 1553 Feb, [facility] [id number] [place] [address] 8214 Feb, Anxiety F41.9 [facility] [id number] [place] [address]- 1006 Feb, [facility] [id number] [place] [address], [place] [address]- 8149 Feb, [facility] [id number] [place] [address] 4748 Feb, 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 and Fibromyalgia M79.7 [facility] [id number] [place] [address]- 6221 Feb, [facility] [id number] [place] [address], [place] [address]- 0400 Jan, [facility] [id number] [place] [address]- 2957 Jan, [facility] [id number] [place] [address]- 6980 Jan, [facility] [id number] [place] [address]- 4413 24 Jan, 2015 [facility] [id number] [place] [address] 2542 16 Jan, 2015 [facility] [address] [id number] [place] [address]- 2544 08 Jan, 2015 [facility] [id number] [place] [address]- 1212 Jan, [facility] [address] [id number] [place] [address]- 2540 Jan, [facility] [address] [id number] [place] [address]- 8936 Dec, [facility] [address] [facility] [id number] [place] [address]- 4105 Dec, Left knee pain M25.562 [facility] [id number] [place] [address] 54363- 6849 Dec, Left knee pain M25.562 [facility] [id number] [place] [address] 26945- 8418 Dec, Fibromyalgia M79.7 ; Hypertension I10 and Arthritis M19.90 [facility] [id number] [place] [address] 64308- 1310 Dec, [facility] [id number] [place] [address] 26382- 9911 Dec, [facility] [id number] [place] [address] 25622- 3258 Dec, [facility] [id number] [place] [address] 99821- 1674 Dec, [facility] [id number] [place] [address] 23621- 6772 Nov, [facility] [id number] [place] [address] 25737- 4623 Nov, [facility] [id number] [place] [address] 55109- 1413 Nov, [facility] [id number] [place] [address] 77904- 6376 Nov, Hypertension I10 [facility] [address] [address]- 7626 Oct, [facility] [id number] [place] [address] 33717- 7274 Oct, [facility] [address] [address]- 2342 Oct, [facility] [id number] [place] [address] 98680- 2385 Oct, [facility] [address] [id number] [place] [address]- 9858 Oct, [facility] [place] [facility] [address] [id number] [place] [address]- 8865 Sep, [facility] [place] [facility] [address] [id number] [place] [address]- 7424 Sep, [facility] [place] [facility] [address] [id number] [place] [address]- 7439 Sep, Hip pain associated with recalled total hip arthroplasty hardware 996.77 [facility] [place] [facility] [address] [id number] [place] [address]- 9047 Sep, [facility] [place] [facility] [address] [facility] [id number] [place] 3854 Sep, [facility] [place] [facility] [address] [facility] [id number] [place] [address]- 9460 Sep, [facility] [place] [facility] [address] [id number] [place] [address]- 0579 Aug, [facility] [place] [facility] [address] [facility] [id number] [place] [address]- 4800 Jul, [facility] [place] [facility] [address] [facility] [id number] [place] [address]- 2054 June, [facility] [place] [facility] [address] [facility] [id number] [place] [address]- 0234 June, [facility] [place] [facility] [address] [id number] [place] [address]- 3021 June, [facility] [place] [facility] [address] [id number] [place] 4411 June, [facility] [place] [facility] [address] [id number] [place] [address]- 4116 June, [facility] [place] [facility] [address] [id number] [place] 6531 June, [facility] [place] [facility] [address] [id number] [place] [address]- 6312 30 May, 2014 [facility] [place] [facility] [address] [id number] [place] [address]- 4763 14 May, 2014 [facility] [place] [facility] [address] [id number] [place] [address]- 2341 May, [facility] [place] [facility] [address] [id number] [place] [address]- 6310 30 Apr, 2014 [facility] [place] [facility] [address] [id number] [place] [address]- 7959 30 Apr, 2014 [facility] [place] [facility] [address] [id number] [place] [address]- 2775 Apr, [facility] [place] [facility] [address] [id number] [place] [address]- 3435 Apr, [facility] [place] [facility] [address] [id number] [place] [address]- 5354 Apr, [facility] [place] [facility] [address] [id number] [place] [address]- 9314 Apr, [facility] [place] [facility] [address] [id number] [place] [address]- 2050 Apr, [facility] [place] [facility] [address] [id number] [place] [address]- 8082 Apr, [facility] [place] [facility] [address] [id number] [place] [address]- 0365 Apr, [facility] [place] [facility] [address] [id number] [place] [address]- 6338 Apr, [facility] [place] [facility] [address] [id number] [place] [address]- 1307 Apr, [facility] [place] [facility] [address] [id number] [place] [address]- 7657 Mar, [facility] [place] [facility] [address] [id number] [place] [address]- 8837 26 Mar, 2014 [facility] [place] [facility] [address] [id number] [place] [address]- 0686 Mar, 2014 [facility] [place] [facility] [address] [id number] [place] 9646 16 Mar, 2014 [facility] [place] [facility] [address] [id number] [place] [address]- 7306 Mar, 2014 [facility] [place] [facility] [address] [id number] [place] [address]- 6452 Mar, [facility] [place] [facility] [address] [id number] [place] [address]- 9214 Feb, [facility] [place] [facility] [address] [id number] [place] [address]- 8198 Feb, [facility] [place] [facility] [address] [id number] [place] [address]- 0942 Feb, [facility] [place] [facility] [address] [id number] [place] [address]- 5986 Feb, [facility] [place] [facility] [address] [id number] [place] [address]- 5047 Jan, [facility] [place] [facility] [address] [id number] [place] [address]- 5563 Jan, [facility] [place] [facility] [address] [id number] [place] [address]- 9532 Jan, [facility] [place] [facility] [address] [id number] [place] 3607 Jan, [facility] [place] [facility] [address] [id number] [place] [address]- 9692 Dec, [facility] [place] [facility] [address] [id number] [place] [address]- 3866 Dec, [facility] [place] [facility] [address] [id number] [place] [address]- 0706 Dec, [facility] [place] [facility] [address] [id number] [place] [address]- 3617 Dec, [facility] [place] [facility] [address] [id number] [place] [address]- 8377 Dec, [facility] [place] [facility] [address] [id number] [place] [address]- 7494 Dec, [facility] [place] [facility] [address] [id number] [place] [address]- 9796 Dec, [facility] [place] [facility] [address] [id number] [place] [address]- 8457 Dec, [facility] [place] [facility] [address] [id number] [place] [address]- 4641 Dec, [facility] [place] [facility] [address] [id number] [place] [address]- 0313 Dec, [facility] [place] [facility] [address] [id number] [place] [address]- 7757 Dec, [facility] [place] [facility] [address] [id number] [place] [address]- 6545 Nov, [facility] [place] [facility] [address] [id number] [place] [address]- 1333 Nov, [facility] [place] [facility] [address] [id number] [place] [address]- 2934 28 Nov, 2013 [facility] [place] [facility] [address] [id number] [place] [address]- 3193 Nov, [facility] [place] [facility] [address] [id number] [place] [address]- 5165 17 Nov, 2013 [facility] [place] [facility] [address] [id number] [place] [address]- 0137 15 Nov, 2013 [facility] [place] [facility] [address] [id number] [place] [address]- 2508 15 Nov, 2013 [facility] [place] [facility] [address] [id number] [place] [address]- 8517 15 Nov, 2013 [facility] [place] [facility] [address] [id number] [place] [address]- 2802 15 Nov, 2013 [facility] [place] [facility] [address] [id number] [place] [address]- 9925 14 Nov, 2013 [facility] [place] [facility] [address] [id number] [place] [address]- 1587 14 Nov, 2013 [facility] [place] [facility] [address] [id number] [place] [address]- 3463 14 Nov, 2013 [facility] [place] [facility] [address] [id number] [place] [address]- 4418 14 Nov, 2013 [facility] [place] [facility] [address] [id number] [place] [address]- 0142 13 Nov, 2013 [facility] [place] [facility] [address] [id number] [place] [address]- 1786 13 Nov, 2013 [facility] [place] [facility] [address] [id number] [place] [address]- 7891 11 Nov, 2013 [facility] [place] [facility] [address] [id number] [place] [address]- 1866 11 Nov, 2013 [facility] [place] [facility] [address] [id number] [place] [address]- 9498 07 Nov, 2013 [facility] [place] [facility] [address] [id number] [place] [address]- 5262 07 Nov, 2013 [facility] [place] [facility] [address] [id number] [place] [address]- 3465 07 Nov, 2013 [facility] [place] [facility] [address] [id number] [place] [address]- 6729 07 Nov, 2013 [facility] [place] [facility] [address] [id number] [place] [address]- 6360 30 Oct, 2013 [facility] [place] [facility] [address] [id number] [place] [address]- 8050 30 Sep, 2013 [facility] [place] [facility] [address] [id number] [place] [address]- 8186 26 Oct, 2013 [facility] [place] [facility] [address] [id number] [place] [address]- 5266 26 Oct, 2013 [facility] [place] [facility] [address] [id number] [place] [address]- 4796 Oct, 2013 [facility] [place] [facility] [address] [id number] [place] [address]- 2203 Oct, 2013 [facility] [place] [facility] [address] [id number] [place] [address] 2540 18 Oct, 2013 [facility] [place] [facility] [address] [id number] [place] [address]- 8497 18 Oct, 2013 [facility] [place] [facility] [address] [id number] [place] [address]- 8900 Oct, 2013 [facility] [place] [facility] [address] [id number] [place] [address]- 4309 Oct, 2013 [facility] [place] [facility] [address] [id number] [place] [address]- 5426 Oct, 2013 [facility] [place] [facility] [address] [id number] [place] [address]- 3526 Oct, 2013 [facility] [place] [facility] [address] [id number] [place] [address]- 2012 Oct, 2013 [facility] [place] [facility] [address] [id number] [place] [address]- 2544 Oct, 2013 [facility] [place] [facility] [address] [id number] [place] [address]- 9177 Sep, [facility] [place] [facility] [address] [id number] [place] [address]- 9251 Sep, [facility] [place] [facility] [address] [id number] [place] [address]- 7917 Sep, [facility] [place] [facility] [address] [id number] [place] [address]- 4187 Sep, [facility] [place] [facility] [address] [id number] [place] [address]- 6703 Sep, [facility] [place] [facility] [address] [id number] [place] [address]- 9183 Sep, [facility] [place] [facility] [address] [id number] [place] [address]- 1829 Sep, [facility] [place] [facility] [address] [id number] [place] [address]- 1914 Sep, [facility] [place] [facility] [address] [id number] [place] [address]- 1243 Sep, [facility] [place] [facility] [address] [id number] [place] [address]- 5469 Sep, [facility] [place] [facility] [address] [id number] [place] [address]- 5825 Sep, [facility] [place] [facility] [address] [id number] [place] [address]- 0627 Sep, [facility] [place] [facility] [address] [id number] [place] [address]- 1067 Sep, [facility] [place] [facility] [address] [id number] [place] [address]- 7530 Sep, [facility] [place] [facility] [address] [id number] [place] [address]- 9568 Sep, [facility] [place] [facility] [address] [id number] [place] [address]- 7962 Sep, [facility] [place] [facility] [address] [id number] [place] [address]- 6811 Sep, [facility] [place] [facility] [address] [id number] [place] [address]- 0396 Sep, [facility] [place] [facility] [address] [id number] [place] [address]- 5279 Aug, [facility] [place] [facility] [address] [id number] [place] [address]- 6393 Aug, [facility] [address] [id number] [place] [address]- 3339 Aug, [facility] [place] [facility] [address] [id number] [place] [address]- 4523 Aug, [facility] [address] [id number] [place] [address]- 7893 Aug, [facility] [place] [facility] [address] [id number] [place] [address]- 3018 Aug, [facility] [address] [id number] [place] [address]- 5351 Jul, [facility] [address] [id number] [place] [address]- 8102 Jul, [facility] [address] [id number] [place] [address]- 4591 Jul, [facility] [address] [id number] [place] [address]- 2609 Jul, [facility] [place] [facility] [address] [id number] [place] [address]- 2396 June, [facility] [address] [id number] [place] [address]- 4662 June, [facility] [place] [facility] [address] [id number] [place] [address]- 2223 June, [facility] [place] [facility] [address] [id number] [place] [address]- 0372 June, [facility] [place] [facility] [address] [id number] [place] [address]- 7896 June, [facility] [place] [facility] [address] [id number] [place] [address]- 7655 June, [facility] [place] [facility] [address] [id number] [place] [address]- 6472 June, [facility] [place] [facility] [address] [id number] [place] [address]- 7068 May, [facility] [place] [facility] [address] [id number] [place] [address]- 9509 May, [facility] [place] [facility] [address] [id number] [place] [address]- 5933 May, [facility] [place] [facility] [address] [id number] [place] [address]- 5367 May, [facility] [place] [facility] [address] [id number] [place] [address]- 2837 May, [facility] [place] [facility] [address] [id number] [place] [address]- 1043 May, [facility] [place] [facility] [address] [id number] [place] [address]- 1671 31 Apr, 2013 [facility] [place] [facility] [address] [id number] [place] [address]- 9315 31 Apr, 2013 [facility] [place] [facility] [address] [id number] [place] [address]- 3820 28 Apr, 2013 [facility] [place] [facility] [address] [id number] [place] [address]- 7560 28 Apr, 2013 [facility] [place] [facility] [address] [id number] [place] [address] 14 Apr, 2013 [facility] [place] [facility] [address] [id number] [place] [address] 14 Apr, 2013 [facility] [place] [facility] [address] [id number] [place] [address] 12 Apr, 2013 [facility] [place] [facility] [address] [id number] [place] [address] 12 Apr, 2013 [facility] [place] [facility] [address] [id number] [place] [address] 58[address] 10 Apr, 2013 [facility] [place] [facility] [address] [id number] [place] [address] Apr, [facility] [place] [facility] [address] [id number] [place] [address] Apr, [facility] [place] [facility] [address] [id number] [place] [address] 288[address] Apr, [facility] [place] [facility] [address] [id number] [place] [address] Apr, [facility] [place] [facility] [address] [id number] [place] [address] 28[address] Apr, [facility] [place] [facility] [address] [id number] [place] [address] Mar, [facility] [place] [facility] [address] [id number] [place] [address] 75[address] Mar, [facility] [place] [facility] [address] [id number] [place] [address] Mar, [facility] [place] [facility] [address] [id number] [place] [address] Feb, [facility] [place] [facility] [address] [id number] [place] [address] Feb, [facility] [place] [facility] [address] [id number] [place] [address] Feb, [facility] [place] [facility] [address] [id number] [place] [address] Feb, [facility] [place] [facility] [address] [id number] [place] [address] Feb, [facility] [place] [facility] [address] [id number] [place] [address] 6[address] Feb, [facility] [place] [facility] [address] [id number] [place] [address] Feb, [facility] [place] [facility] [address] [id number] [place] [address] Feb, [facility] [place] [facility] [address] [id number] [place] [address] Feb, [facility] [address] [id number] [place] [address] Feb, [facility] [place] [facility] [address] [id number] [place] [address] Jan, [facility] [place] [facility] [address] [id number] [place] [address] 4[address] Jan, [facility] [place] [facility] [address] [id number] [place] [address] 5[address] Jan, [facility] [place] [facility] [address] [id number] [place] [address] 150[address] Jan, [facility] [address] [id number] [place] [address] 87[address] Jan, [facility] [address] [id number] [place] [address] 89[address] Jan, [facility] [address] [id number] [place] [address] Jan, [facility] [address] [id number] [place] [address] 6[address] Jan, [facility] [address] [id number] [place] [address] Jan, [facility] [place] [facility] [address] [id number] [place] [address] Jan, [facility] [place] [facility] [address] [id number] [place] [address] 17 Jan, 2013 [facility] [place] [facility] [address] [id number] [place] [address] 3976 17 Jan, 2013 [facility] [place] [facility] [address] [id number] [place] [address] 2546 16 Jan, 2013 [facility] [place] [facility] [address] [id number] [place] [address]155 Jan, [facility] [address] [id number] [place] [address]185 Jan, [facility] [place] [facility] [address] [id number] [place] [address] Jan, [facility] [place] [facility] [address] [facility] [id number] [place] [address] Jan, [facility] [place] [facility] [address] [id number] [place] [address] Jan, [facility] [place] [facility] [address] [id number] [place] [address]- 8315 Jan, [facility] [place] [facility] [address] [id number] [place] [address] 44[address] Jan, [facility] [place] [facility] [address] [facility] [id number] [place] [address] Jan, [facility] [place] [facility] [address] [id number] [place] [address] Dec, [facility] [place] [facility] [address] [id number] [place] [address] Dec, [facility] [place] [facility] [address] [id number] [place] [address] Dec, [facility] [place] [facility] [address] [id number] [place] [address] Dec, [facility] [place] [facility] [address] [id number] [place] [address] Dec, [facility] [place] [facility] [address] [id number] [place] [address] 7766 Dec, [facility] [place] [facility] [address] [id number] [place] [address] Dec, [facility] [place] [facility] [address] [id number] [place] [address]- 46[address] Dec, [facility] [place] [facility] [address] [id number] [place] [address]- 4294 Dec, [facility] [place] [facility] [address] [id number] [place] [address] 9[address] Dec, [facility] [place] [facility] [address] [id number] [place] [address] Nov, [facility] [place] [facility] [address] [id number] [place] [address] Nov, [facility] [place] [facility] [address] [id number] [place] [address] 3581 Nov, [facility] [place] [facility] [address] [id number] [place] [address]- 7144 Nov, [facility] [place] [facility] [address] [id number] [place] [address]- 67[address] Nov, [facility] [place] [facility] [address] [id number] [place] [address] 7549 Nov, [facility] [place] [facility] [address] [id number] [place] [address]- 8520 Nov, [facility] [place] [facility] [address] [id number] [place] [address]- 4185 Nov, [facility] [place] [facility] [address] [id number] [place] [address]- 0435 Nov, [facility] [place] [facility] [address] [id number] [place] [address]- 2610 Nov, [facility] [place] [facility] [address] [id number] [place] [address]- 7[address] Oct, [facility] [place] [facility] [address] [address] [id number] [place] [address] Oct, [facility] [place] [facility] [address] [id number] [place] [address] Oct, [facility] [place] [facility] [address] [id number] [place] [address] 39[address] Oct, [facility] [place] [facility] [address] [id number] [place] [address] Oct, [facility] [address] [id number] [place] [address]46 Sep, [facility] [address] [id number] [place] [address] Sep, [facility] [address] [id number] [place] [address] 65[address] Aug, [facility] [address] [id number] [place] [address] 14[address] Aug, [facility] [address] [id number] [place] [address] 5532 Aug, [facility] [address] [id number] [place] [address]853 Aug, [facility] [address] [id number] [place] [address] Aug, [facility] [address] [id number] [place] [address] 2528 Aug, [facility] [address] [id number] [place] [address] 5[address] Aug, [facility] [address] [id number] [place] [address] 254 Jul, [facility] [address] [id number] [place] [address] 254 Jul, [facility] [address] [id number] [place] [address] 1761 June, [facility] [place] [facility] [address] [id number] [place] [address] 1146 June, [facility] [address] [id number] [place] [address] 2541 June, [facility] [address] [id number] [place] [address] 4525 June, [facility] [address] [id number] [place] [address] 9693 June, [facility] [address] [id number] [place] [address] 6308 June, [facility] [address] [id number] [place] [address] 4705 June, [facility] [address] [id number] [place] [address]- 2185 June, [facility] [address] [id number] [place] [address]- 3658 June, [facility] [address] [id number] [place] [address] 9657 June, [facility] [address] [id number] [place] [address] June, [facility] [address] [id number] [place] [address] 8070 May, [facility] [address] [id number] [place] [address]- 6832 May, [facility] [address] [id number] [place] [address] 1451 May, [facility] [address] [id number] [place] [address] 7767 May, [facility] [place] [facility] [address] [id number] [place] [address]- 2590 Apr, [facility] [place] [facility] [address] [id number] [place] [address]- 1136 Apr, [facility] [place] [facility] [address] [id number] [place] [address] 9005 Apr, [facility] [place] [facility] [address] [id number] [place] [address] 0652 Mar, [facility] [place] [facility] [address] [id number] [place] [address]- 0746 11 Mar, 2012 [facility] [address] [id number] [place] [address]- 4096 Feb, [facility] [place] [facility] [address] [id number] [place] [address] 7496 Feb, [facility] [address] [id number] [place] [address] 6[address] Feb, [facility] [place] [facility] [address] [id number] [place] [address]- 7776 Feb, [facility] [address] [id number] [place] [address] 7516 Feb, [facility] [address] [id number] [place] [address]- 4396 Feb, [facility] [address] [id number] [place] [address]- 9777 Feb, [facility] [address] [id number] [place] [address]- 3745 Jan, [facility] [address] [id number] [place] [address]- 1745 31 Jan, 2012 [facility] [address] [id number] [place] [address]- 9345 Jan, [facility] [address] [id number] [place] [address]- 2646 17 Jan, 2012 [facility] [address] [id number] [place] [address]- 2546 17 Jan, 2012 [facility] [place] [facility] [address] [id number] [place] [address]- 8096 Jan, [facility] [place] [facility] [address] [id number] [place] [address]- 3886 Jan, [facility] [place] [facility] [address] [id number] [place] [address]- 9783 Jan, [facility] [place] [facility] [address] [id number] [place] [address]- 6448 Jan, [facility] [place] [facility] [address] [id number] [place] [address]- 9218 Jan, [facility] [place] [facility] [address] [id number] [place] [address] Jan, [facility] [place] [facility] [address] [id number] [place] [address]- 0532 Dec, [facility] [place] [facility] [address] [id number] [place] [address]- 1544 Dec, [facility] [place] [facility] [address] [id number] [place] [address]- 8296 Dec, [facility] [place] [facility] [address] [id number] [place] [address]- 1039 Dec, [facility] [place] [facility] [address] [id number] [place] [address]- 2938 Nov, [facility] [place] [facility] [address] [id number] [place] [address]- 9222 Nov, [facility] [place] [facility] [address] [id number] [place] [address] 6825 Nov, [facility] [place] [facility] [address] [id number] [place] [address] 9138 27 Oct, 2011 [facility] [place] [facility] [address] [id number] [place] [address]- 0447 24 Sep2011 [facility] [place] [facility] [address] [id number] [place] [address]- 8846 21 Sep2011 [facility] [place] [facility] [address] [id number] [place] [address]- 8801 10 Oct, 2011 [facility] [place] [facility] [address] [id number] [place] [address]- 9985 07 Oct, 2011 [facility] [place] [facility] [address] [id number] [place] [address]- 1559 04 Oct, 2011 [facility] [place] [facility] [address] [id number] [place] [address]- 2356 Oct, [facility] [place] [facility] [address] [id number] [place] [address]- 1716 Sep, [facility] [place] [facility] [address] [id number] [place] [address]- 0756 Sep, [facility] [place] [facility] [address] [id number] [place] [address]- 3446 Sep, [facility] [place] [facility] [address] [id number] [place] [address]- 4897 Sep, [facility] [place] [facility] [address] [id number] [place] [address]- 9993 Sep, [facility] [place] [facility] [address] [id number] [place] [address]- 2916 Aug, [facility] [place] [facility] [address] [id number] [place] [address]- 6030 Aug, [facility] [place] [facility] [address] [id number] [place] [address]- 5609 Aug, [facility] [place] [facility] [address] [id number] [place] [address]- 0016 Aug, [facility] [place] [facility] [address] [id number] [place] [address]- 8325 Aug, [facility] [place] [facility] [address] [id number] [place] [address]- 4883 Aug, [facility] [place] [facility] [address] [id number] [place] [address]- 0579 Aug, [facility] [place] [facility] [address] [id number] [place] [address]- 9796 Jul, [facility] [place] [facility] [address] [id number] [place] [address]- 1154 Jul, [facility] [place] [facility] [address] [id number] [place] [address]- 2845 Jul, [facility] [place] [facility] [address] [id number] [place] [address]- 4824 Jul, [facility] [place] [facility] [address] [id number] [place] [address]- 7040 Jul, [facility] [place] [facility] [address] [id number] [place] [address]- 0451 Jul, [facility] [place] [facility] [address] [id number] [place] [address]- 2464 07 Jul, 2011 [facility] [place] [facility] [address] [id number] [place] [address]- 6962 Jul, [facility] [place] [facility] [address] [id number] [place] [address]- 4446 Jul, [facility] [place] [facility] [address] [id number] [place] [address]- 3676 June, [facility] [place] [facility] [address] [id number] [place] [address]- 1522 June, [facility] [place] [facility] [address] [id number] [place] [address]- 2109 June, [facility] [place] [facility] [address] [id number] [place] [address]- 7717 June, [facility] [place] [facility] [address] [id number] [place] [address]- 6713 June, [facility] [place] [facility] [address] [id number] [place] [address]- 6733 June, [facility] [place] [facility] [address] [id number] [place] [address]- 5775 June, [facility] [place] [facility] [address] [id number] [place] [address]- 7929 June, [facility] [place] [facility] [address] [id number] [place] [address]- 9906 May, [facility] [place] [facility] [address] [id number] [place] [address]- 0600 May, [facility] [place] [facility] [address] [id number] [place] [address]- 9286 May, [facility] [place] [facility] [address] [id number] [place] [address]- 8271 May, [facility] [place] [facility] [address] [id number] [place] [address]- 1944 May, [facility] [place] [facility] [address] [id number] [place] [address]- 7922 May, [facility] [place] [facility] [address] [id number] [place] May, [facility] [place] [facility] [address] [id number] [place] [address]- 6420 Apr, [facility] [place] [facility] [address] [id number] [place] [address]- 4736 Apr, [facility] [place] [facility] [address] [id number] [place] [address]- 4997 Apr, [facility] [place] [facility] [address] [id number] [place] [address]- 3907 Apr, [facility] [place] [facility] [address] [id number] [place] [address]- 2440 Apr, [facility] [place] [facility] [address] [id number] [place] [address]- 1290 Apr, [facility] [place] [facility] [address] [id number] [place] [address]- 0777 Apr, [facility] [place] [facility] [address] [id number] [place] [address]- 3230 Mar, [facility] [place] [facility] [address] [id number] [place] [address]- 7631 Mar, [facility] [place] [facility] [address] [id number] [place] [address]- 1648 14 Mar, 2011 [facility] [address] [id number] [place] [address]- 6236 13 Mar, 2011 [facility] [place] [facility] [address] [id number] [place] [address]- 8206 09 Mar, 2011 [facility] [address] [id number] [place] [address]- 6946 08 Mar, 2011 [facility] [address] [id number] [place] [address] 2544 Mar, [facility] [address] [id number] [place] [address]- 1550 Feb, [facility] [address] [id number] [place] [address]- 6254 Feb, [facility] [address] [id number] [place] [address]- 4172 Feb, [facility] [address] [id number] [place] [address]- 3086 Feb, [facility] [address] [id number] [place] [address]- 1704 Feb, [facility] [address] [id number] [place] [address]- 2553 Feb, [facility] [address] [id number] [place] [address]- 4009 Feb, [facility] [place] [facility] [address] [id number] [place] [address]- 6696 Feb, [facility] [place] [facility] [address] [id number] [place] [address]- 0494 Feb, [facility] [place] [facility] [address] [id number] [place] [address]- 4169 Feb, [facility] [place] [facility] [address] [id number] [place] [address]- 3977 27 Jan, 2011 [facility] [place] [facility] [address] [id number] [place] [address]- 6947 Jan, [facility] [place] [facility] [address] [id number] [place] [address]- 9056 Jan, [facility] [place] [facility] [address] [id number] [place] [address]- 8506 Jan, [facility] [place] [facility] [address] [id number] [place] [address]- 1176 Jan, [facility] [place] [facility] [address] [id number] [place] [address]- 6714 Jan, [facility] [place] [facility] [address] [id number] [place] [address]- 2229 Jan, [facility] [place] [facility] [address] [id number] [place] [address]- 9579 Jan, [facility] [place] [facility] [address] [id number] [place] [address]- 9618 Jan, [facility] [place] [facility] [address] [id number] [place] [address]- 6733 Jan, [facility] [place] [facility] [address] [id number] [place] [address]- 1846 Jan, [facility] [place] [facility] [address] [id number] [place] [address]- 7676 17 Dec, 2010 [facility] [place] [facility] [address] [id number] [place] [address]- 4228 17 Dec, 2010 [facility] [place] [facility] [address] [id number] [place] [address]- 2526 17 Dec, 2010 [facility] [place] [facility] [address] [id number] [place] [address]- 6059 16 Dec, 2010 [facility] [place] [facility] [address] [id number] [place] [address]- 1142 14 Dec, 2010 [facility] [place] [facility] [address] [id number] [place] [address]- 7248 09 Dec, 2010 [facility] [address] [id number] [place] [address]- 2167 Dec, [facility] [place] [facility] [address] [id number] [place] [address]38 Dec, [facility] [address] [id number] [place] [address]- 9752 Dec, [facility] [place] [facility] [address] [id number] [place] [address]- 7607 Nov, [facility] [address] [id number] [place] [address]- 5193 Nov, [facility] [place] [facility] [address] [id number] [place] [address]- 0994 Nov, [facility] [address] [id number] [place] [address]- 6939 Nov, [facility] [address] [id number] [place] [address]- 8597 24 Nov, 2010 [facility] [place] [facility] [address] [id number] [place] [address]- 4299 Nov, [facility] [address] [id number] [place] [address]- 2331 Aug, [facility] [place] [facility] [address] [id number] [place] [address]- 6727 14 Feb, 2010 [facility] [place] [facility] [address] [id number] [place] [address]- 5620 14 Jan, 2010 [facility] [place] [facility] [address] [id number] [place] [address]- 0770 Jan, [facility] [place] [facility] [address] [id number] [place] [address]- 9427 Jan, [facility] [place] [facility] [address] [id number] [place] [address]- 4273 Jan, [facility] [address] [id number] [address] Jan, [facility] [id number] [place] [address]- 4614 Dec, [facility] [id number] [place] [address]- 2123 Dec, [facility] [id number] [place] [address] 2540 Dec, [facility] [id number] [address]- 9429 Dec, [facility] [id number] [address]- 5878 Nov, [facility] [id number] [address]- 7215 Nov, [facility] [id number] [address]- 4657 Nov, IMMUNIZATIONS No Known Immunizations SOCIAL HISTORY Never Assessed REASON FOR VISIT requesting a returned call PLAN OF CARE VITAL SIGNS MEDICATIONS [...]
--- OUTSIDE RECORDS SUMMARY | 2018-01-13 21:05 | XMS REPORT ---
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 Active 809366522 Problem Hypertension I10 Active 97789394 Problem Arthritis M19.90 Active 8877466 Problem 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 Active 65080029 Problem Anxiety F41.9 Active 38626964 Problem Unspecified episodic mood disorder F39 Active 64075014 Problem Left hip pain M25.552 Active 96153235 ALLERGIES No Information ENCOUNTERS Encounter Location Date Diagnosis [facility] [address] [id number] [id number] Aug, [facility] [address] [facility] [id number] [address] Aug, Arthritis M19.90 [facility] [address] [facility] [id number] [address] Aug, [facility] [id number] [place] [address] 69677- 3402 Aug, Obesity (BMI 30.0-34.9) E66.9 ; Unspecified episodic mood disorder F39 and Hypertension I10 [facility] [id number] [place] [address] 28850- 9421 Aug, Unspecified episodic mood disorder F39 [facility] [id number] [place] [address] 95064- 1082 Aug, [facility] [id number] [place] [address] 55535- 5443 Jul, Unspecified episodic mood disorder F39 [facility] [id number] [place] [address] 73964- 0907 Jul, [facility] [id number] [place] [address] 17454- 7381 Jul, Arthritis M19.90 [facility] [id number] [place] [address] 20463- 5425 Jul, Left hip pain M25.552 ; Hypertension I10 ; Other obesity due to excess calories E66.09 and Body mass index (BMI) of 34.0-34.9 in adult Z68.34 [facility] [id number] [place] [address] 74046- 8686 Jul, Unspecified episodic mood disorder F39 [facility] [id number] [place] [address] 33416- 3488 June, Gastroesophageal reflux disease, esophagitis presence not specified K21.9 [facility] [id number] [place] [address] 74979- 1234 June, [facility] [id number] [place] [address] 05131- 9337 June, [facility] [id number] [place] [address] 06393- 1224 June, Arthritis M19.90 [facility] [address] [address] 1532 June, [facility] [id number] [place] [address] 65088- 8469 June, [facility] [id number] [place] [address] 55366- 4161 June, Unspecified episodic mood disorder F39 [facility] [id number] [place] [address] 01186- 1962 May, Unspecified episodic mood disorder F39 [facility] [id number] [place] [address] 29404- 7237 May, [facility] [id number] [place] [address] 07683- 2040 May, Arthritis M19.90 [facility] [id number] [place] [address] 04197 -4506 May, Dysuria R30.0 ; Abscess L02.91 and Acute cystitis without hematuria N30.00 [facility] [id number] [place] [address] 19770- 9235 May, Other disorder of impulse control F63.89 ; Unspecified episodic mood disorder F39 ; Combined drug dependence excluding opioids, 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 ; Anxiety F41.9 and Other psychoactive substance dependence, 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 [facility] [id number] [place] [address] 10864- 3581 May, [facility] [id number] [place] [address] 99343- 1424 May, Other disorder of impulse control F63.89 ; Unspecified episodic mood disorder F39 ; Combined drug dependence excluding opioids, 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 ; Other psychoactive substance dependence, 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 and Anxiety F41.9 [facility] [id number] [place] [address] 97919- 6488 May, Other chronic pain G89.29 ; Left hip pain M25.552 ; Hypertension I10 ; 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, 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 and Unspecified episodic mood disorder F39 [facility] [id number] [place] [address] 71801- 9346 Apr, [facility] [id number] [place] [address] 99864 -3639 Apr, Neck pain M54.2 ; Left hip pain M25.552 and Fall, initial encounter W19.XXXA [facility] [id number] [place] [address] 93705- 3125 Apr, Unspecified episodic mood disorder F39 ; Combined drug dependence excluding opioids, 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 ; Anxiety F41.9 ; Other psychoactive substance dependence, 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 and Other disorder of impulse control F63.89 [facility] [id number] [place] [address] 28662- 5923 Apr, [facility] [id number] [place] [address] 55649- 2993 Apr, Arthritis M19.90 and Unspecified episodic mood disorder F39 [facility] [id number] [place] [address] 23297- 1958 Apr, Unspecified episodic mood disorder F39 [facility] [id number] [place] [address] 30833- 6765 Apr, [facility] [id number] [place] [address] 02597- 9249 Apr, [facility] [id number] [place] [address] 02005- 8361 Apr, Unspecified episodic mood disorder F39 ; Combined drug dependence excluding opioids, 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 ; Anxiety F41.9 ; Other psychoactive substance dependence, 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 and Other disorder of impulse control F63.89 [facility] [id number] [place] [address] 79323- 7613 Mar, Unspecified episodic mood disorder F39 [facility] [address] [address] 9616 Mar, Gastroesophageal reflux disease, esophagitis presence not specified K21.9 [facility] [address] [address]- 4836 Mar, Arthritis M19.90 and Unspecified episodic mood disorder F39 [facility] [id number] [place] [address] 36079- 9726 Feb, [facility] [id number] [place] [address] 11000- 2865 Feb, [facility] [id number] [place] [address] 34854- 1933 Feb, [facility] [id number] [place] [address] 12688- 6572 Feb, Arthritis M19.90 [facility] [id number] [place] [address] 75817- 7754 Feb, Non-pressure chronic ulcer of right calf, 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 ; Unspecified episodic mood disorder F39 and Left hip pain M25.552 [facility] [address] [address] 6041 Feb, [facility] [id number] [place] [address] 25494- 9938 Feb, [facility] [id number] [place] [address] 67225- 2827 Jan, Arthritis M19.90 [facility] [id number] [place] [address] 95107- 7580 Jan, Left hip pain M25.552 and Non-pressure chronic ulcer of right calf, 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 [facility] [address] [address]- 7301 Jan, Chronic hepatitis C without hepatic coma B18.2 [facility] [id number] [place] [address] 17724- 2310 Jan, Encounter for immunization Z23 ; Venous insufficiency ( chronic) (peripheral) I87.2 ; Non-pressure chronic ulcer of unspecified calf limited to breakdown of skin L97.201 and Gastroesophageal reflux disease, esophagitis presence not specified K21.9 [facility] [id number] [place] [address] 52606- 4703 Jan, [facility] [id number] [place] [address] 93056- 4964 Jan, Chronic hepatitis C without hepatic coma B18.2 and Encounter for immunization Z23 [facility] [id number] [place] [address] 10691- 5704 Jan, Arthritis M19.90 [facility] [id number] [place] [address] 95408- 2504 Jan, [facility] [id number] [place] [address] 45267- 5962 Dec, [facility] [id number] [place] [address] 70688- 5565 Dec, Unspecified episodic mood disorder F39 [facility] [id number] [place] [address] 86715- 2351 Dec, Arthritis M19.90 [facility] [id number] [place] [address] 75541- 0133 Dec, Arthritis M19.90 [facility] [id number] [place] [address] 56070- 5419 Nov, [facility] [id number] [place] [address] 23574- 2643 Nov, [facility] [id number] [place] [address] 21261- 9002 Nov, Other psychoactive substance dependence, 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 ; 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, 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 and Chronic hepatitis C without hepatic coma B18.2 [facility] [id number] [place] [address] 42785- 7844 Nov, Arthritis M19.90 [facility] [id number] [place] [address] 90883 -7412 Oct, Partial thickness burn of abdomen, initial encounter T21.22XA [facility] [id number] [place] [address] 92507- 3796 Oct, [facility] [id number] [place] [address] 65541- 9478 Sep, Arthritis M19.90 [facility] [id number] [place] [address] 02014- 8099 Sep, [facility] [id number] [place] [address] 68439- 2095 Sep, [facility] [id number] [place] [address] 92067- 1142 Sep, Unspecified episodic mood disorder F39 ; Chronic hepatitis C without hepatic coma B18.2 and Left hip pain M25.552 [facility] [id number] [place] [address] 99916- 5760 Sep, Arthritis M19.90 and Left hip pain M25.552 [facility] [id number] [place] [address] 53421- 7802 Aug, [facility] [id number] [place] [address] 21414- 7474 Aug, [facility] [id number] [place] [address] 84617- 2954 Aug, Chronic hepatitis C without hepatic coma B18.2 [facility] [id number] [place] [address] 45520- 3532 Aug, [facility] [id number] [place] [address] 48199- 4734 Aug, Chronic hepatitis C without hepatic coma B18.2 [facility] [id number] [place] [address] 55175- 0532 Aug, 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, 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 [facility] [id number] [place] [address] 43297- 6073 Aug, [facility] [id number] [place] [address] 92181- 7082 Aug, Chronic hepatitis C without hepatic coma B18.2 and Hypertension I10 [facility] [id number] [place] [address] 27866- 9778 Jul, [facility] [id number] [place] [address] 77511- 6942 June, [facility] [id number] [place] [address] 54274- 4399 Apr, Fibromyalgia M79.7 ; Left hip pain M25.552 and Decubitus ulcer of sacral region, stage 1 L89.151 [facility] [id number] [place] [address] 45918- 4674 Apr, [facility] [id number] [place] [address] 14287- 0392 Apr, [facility] [id number] [place] [address] 26967- 7029 Feb, [facility] [id number] [place] [address] 67546- 0287 Dec, Anxiety F41.9 ; Combined drug dependence excluding opioids, 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 and Unspecified episodic mood disorder F39 [facility] [id number] [place] [address] 66608- 4108 Dec, [facility] [id number] [place] [address] 73761- 9995 Nov, [facility] [id number] [place] [address] 95340- 6619 Nov, [facility] [id number] [place] [address] 40333- 0940 Nov, Other disorder of impulse control F63.89 and Anxiety F41.9 [facility] [id number] [place] [address] 30577- 3533 Oct, [facility] [id number] [place] [address] 90967 -3161 14 Oct, 2015 Open wound of left thigh, initial encounter S71.102A [facility] [id number] [place] [address] 14125- 4602 Oct, [facility] [id number] [place] [address] 18931- 7629 Sep, Unspecified episodic mood disorder F39 ; Other disorder of impulse control 312.39 ; Combined drug dependence excluding opioids, 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 and Anxiety F41.9 [facility] [address] [place] [address] 20825- 8305 Sep, Other disorder of impulse control 312.39 ; Combined drug dependence excluding opioids, 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 ; Anxiety F41.9 and Unspecified episodic mood disorder F39 [facility] [address] [place] [address] 24106- 5606 Sep, Other chronic pain G89.29 [facility] [id number] [place] [address] 22617- 6144 Sep, [facility] [id number] [place] [address] 76872- 6916 Sep, [facility] [id number] [place] [address] 39927- 3614 Aug, [facility] [id number] [place] [address] 28930- 5113 Aug, [facility] [id number] [place] [address] 88877- 7788 Aug, [facility] [id number] [place] [address] 37769- 7689 Jul, [facility] [id number] [place] [address] 21153- 4672 Jul, [facility] [id number] [place] [address] 33308- 5219 Jul, [facility] [id number] [place] [address] 53424- 9333 Jul, Arthritis M19.90 ; Chronic hepatitis C without hepatic coma B18.2 and Left hip pain M25.552 [facility] [id number] [place] [address] 66139- 3278 Jul, Left knee pain M25.562 [facility] [id number] [place] [address] 73512- 5333 Jul, Combined drug dependence excluding opioids, 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 ; Anxiety F41.9 ; Other disorder of impulse control 312.39 and Unspecified episodic mood disorder F39 [facility] [id number] [place] [address] 32684- 6628 Jul, Left knee pain M25.562 [facility] [address] [place] [address] 71180- 9233 Jul, Left knee pain M25.562 and Left hip pain M25.552 [facility] [address] [place] [address] 91588- 3859 Jul, [facility] [id number] [place] [address] 69848- 2361 June, [facility] [id number] [place] [address] 85061- 9355 June, Combinations of drug dependence excluding opioid type drug, unspecified abuse 304.80 ; Other disorder of impulse control 312.39 ; Unspecified episodic mood disorder F39 and Anxiety F41.9 [place] [address] [address]- 6919 June, Other fatigue R53.83 ; Headache R51 and Left knee pain M25.562 [facility] [id number] [place] [address] 71091- 6401 June, Unspecified episodic mood disorder F39 ; Combinations of drug dependence excluding opioid type drug, unspecified abuse 304.80 ; Other disorder of impulse control 312.39 and Anxiety F41.9 [facility] [id number] [place] [address] 77695- 4008 June, Anxiety F41.9 [facility] [id number] [place] [address] 21550- 1367 June, Pain in left knee M25.562 [facility] [id number] [place] [address] 10632- 0474 June, Anxiety F41.9 and Combinations of drug dependence excluding opioid type drug, unspecified abuse 304.80 [place] [address] [place] [address] 91592- 7657 June, Unspecified episodic mood disorder 296.90 ; Combinations of drug dependence excluding opioid type drug, unspecified abuse 304.80 and Other disorder of impulse control 312.39 [place] [address] [address]- 9828 June, Anxiety F41.9 and Unspecified episodic mood disorder 296.90 [facility] [address] [place] [address] 92131- 7765 May, Arthritis M19.90 [facility] [id number] [place] [address] 11285- 1178 May, Arthritis M19.90 [facility] [id number] [place] [address] 66185- 9082 May, Anxiety F41.9 ; Combinations of drug dependence excluding opioid type drug, unspecified abuse 304.80 and Other disorder of impulse control 312.39 [place] [address] [address]- 0764 18 May, 2015 Left knee pain M25.562 [facility] [address] [address]- 3768 14 May, 2015 Arthritis M19.90 [facility] [address], [place] [address]- 7001 May, [facility] [id number] [place] [address] 76838- 3421 May, Anxiety F41.9 ; Unspecified episodic mood disorder 296.90 ; Combinations of drug dependence excluding opioid type drug, unspecified abuse 304.80 and Other disorder of impulse control 312.39 [facility] [address] [address]- 9429 May, Left knee pain M25.562 [facility] [id number] [place] [address] 09723- 1234 11 May, 2015 Left knee pain M25.562 ; Combinations of drug dependence excluding opioid type drug, unspecified abuse 304.80 ; Other disorder of impulse control 312.39 ; Fibromyalgia M79.7 ; Hypertension I10 ; Unspecified episodic mood disorder 296.90 and Left hip pain M25.552 [facility] [address], [place] [address]- 3757 May, Unspecified episodic mood disorder 296.90 ; Other disorder of impulse control 312.39 ; Combinations of drug dependence excluding opioid type drug, unspecified abuse 304.80 and Anxiety F41.9 [facility] [address] [place] [address] 26923- 6777 May, Left knee pain M25.562 ; Combinations of drug dependence excluding opioid type drug, unspecified abuse 304.80 ; Other disorder of impulse control 312.39 ; Fibromyalgia M79.7 ; Hypertension I10 ; Unspecified episodic mood disorder 296.90 and Left hip pain M25.552 [facility] [address] [place] [address] 08307- 5336 May, Anxiety F41.9 ; Unspecified episodic mood disorder 296.90 ; Other disorder of impulse control 312.39 and Combinations of drug dependence excluding opioid type drug, unspecified abuse 304.80 [facility] [id number] [place] [address] 65393- 6197 30 Apr, 2015 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 and 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, implants and grafts, initial encounter T84.82XA [facility] [id number] [place] [address] 46136- 0934 Apr, Anxiety F41.9 ; Unspecified episodic mood disorder 296.90 ; Combinations of drug dependence excluding opioid type drug, unspecified abuse 304.80 and Other disorder of impulse control 312.39 [facility] [id number] [place] [address] 19934- 1905 Apr, Arthritis M19.90 [facility] [id number] [place] [address] 45562- 4551 Apr, Anxiety F41.9 ; Unspecified episodic mood disorder 296.90 ; Combinations of drug dependence excluding opioid type drug, unspecified abuse 304.80 and Other disorder of impulse control 312.39 [facility] [id number] [place] [address] 76674- 8755 17 Apr, 2015 Arthritis M19.90 [facility] [id number] [place] [address] 91985- 6266 15 Apr, 2015 [facility] [id number] [place] [address] 62708- 6764 15 Apr, 2015 [facility] [id number] [place] [address] 97434- 0061 14 Apr, 2015 Unspecified episodic mood disorder 296.90 ; Combinations of drug dependence excluding opioid type drug, unspecified abuse 304.80 ; Other disorder of impulse control 312.39 and Anxiety F41.9 [facility] [id number] [place] [address] [id number] -[phone] 11 Apr, 2015 Left knee pain M25.562 [place] [id number] [place] [address] 28412- 5005 11 Apr, 2015 [place] [address] [place] [id number] [id number] Mar, Unspecified episodic mood disorder 296.90 ; Anxiety F41.9 ; Other disorder of impulse control 312.39 and Combinations of drug dependence excluding opioid type drug, unspecified abuse 304.80 [place] [id number] [place] [address] 18032- 1310 Mar, Hyperpigmentation L81.9 [place] [id number] [place] [address] 46005- 8934 Mar, Arthritis M19.90 and Anxiety F41.9 [place] [address] 6[address]- 5873 Mar, Unspecified episodic mood disorder F39 ; Combined drug dependence excluding opioids, 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 ; Other disorder of impulse control F63.89 and Anxiety F41.9 [place] [address] [id number] [place] [address] 71849- 9093 12 Mar, 2015 Well woman exam Z01.419 ; Other fatigue R53.83 ; Hot flashes N95.1 ; Depression, unspecified depression type F32.9 and Body mass index (BMI) of 23.0-23.9 in adult Z68.23 [place] [address] [place] [id number] [place] [address] 33990- 1917 11 Mar, 2015 Unspecified episodic mood disorder 296.90 ; Other disorder of impulse control 312.39 and Anxiety F41.9 [place] [id number] [place] [address] 07452- 7806 11 Mar, 2015 Well woman exam Z01.419 [...] of breast Z12.39 and Limited mobility Z74.[address] [address]- 9997 Mar, [place] [address] [address]- 2665 Mar, [address] 68592- 3162 Mar, [address] 99248- 8476 Mar, Other specified complication of internal orthopedic prosthetic devices, implants and grafts, initial encounter T84.89XA ; Fibromyalgia M79.7 ; Hypertension I10 ; Anemia D64.9 ; Insomnia G47.00 ; Anxiety F41.9 ; Arthritis M19.90 and Migraine G43.909 [place] [address] [address]- 8021 Mar, [place] [address] 81802- 1425 Feb, [place] [address] 72358- 6236 Feb, Arthritis M19.90 and Anxiety F41.[address] 07263- 8367 Feb, [place] [address] 99019- 2666 Feb, [place] [address] 42899- 7098 Feb, [facility] [address] [facility] [id number] [place] [address] 7613 Feb, [facility] [id number] [place] [address] 4359 Feb, Anxiety F41.9 [facility] [address] [place] [address]- 3861 Feb, [facility] [id number] [place] [address], [place] [address]- 4704 Feb, [facility] [address] [address]- 7383 Feb, 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 and Fibromyalgia M79.7 [facility] [id number] [address]- 7605 Feb, [facility] [id number] [place] [address], [place] [address]- 1151 Jan, [facility] [id number] [place] [address]- 9161 Jan, [facility] [id number] [address]- 0224 Jan, [facility] [address] [address]- 8396 24 Jan, 2015 [facility] [address] [address] 2548 16 Jan, 2015 [facility] [address] [id number] [address]- 2547 08 Jan, 2015 [facility] [address] [address]- 0419 Jan, [facility] [address] [id number] [address]- 2540 Jan, [facility] [address] [id number] [address]- 1977 Dec, [facility] [address] [facility] [id number] [address]- 9062 Dec, Left knee pain M25.562 [facility] [id number] [place] [address] 94544- 6845 Dec, Left knee pain M25.562 [facility] [id number] [place] [address] 72015- 6127 Dec, Fibromyalgia M79.7 ; Hypertension I10 and Arthritis M19.90 [facility] [id number] [place] [address] 03666- 5311 Dec, [facility] [id number] [place] [address] 28863- 5751 Dec, [facility] [id number] [place] [address] 49722- 1535 Dec, [facility] [id number] [place] [address] 14958- 5872 Dec, [facility] [id number] [place] [address] 76228- 7591 Nov, [facility] [id number] [place] [address] 39788- 2164 Nov, [facility] [id number] [place] [address] 36165- 2485 Nov, [facility] [id number] [place] [address] 13443- 5503 Nov, Hypertension I10 [facility] [address]65[address] [address]- 7873 Oct, [facility] [id number] [place] [address] 60239- 2270 Oct, [facility] [address]65100[place] [address]- 3940 Oct, [facility] [id number] [place] [address] 65250- 3123 Oct, [facility] [address] [id number] [place] [address]- 1320 Oct, [facility] [place] [facility] [address] [id number], [place] [address]- 3480 Sep, [facility] [place] [facility] [address] [id number], [place] [address]- 0284 Sep, [facility] [place] [facility] [address] [id number], [place] [address]- 5451 Sep, Hip pain associated with recalled total hip arthroplasty hardware 996.77 [facility] [place] [facility] [address] [id number] [place] [address]- 0687 Sep, [facility] [place] [facility] [address] [facility] [id number] 3083 Sep, [facility] [place] [facility] [address] [facility] [id number], [place] [address]- 6233 Sep, [facility] [place] [facility] [address] [id number], [place] [address]- 1474 Aug, [facility] [place] [facility] [address] [facility] [id number], [place] [address]- 5734 Jul, [facility] [place] [facility] [address] [facility] [id number][place] [address]- 1727 June, [facility] [place] [facility] [address] [facility] [id number], [place] [address]- 1708 June, [facility] [place] [facility] [address] [id number], [place] [address]- 4790 June, [facility] [place] [facility] [address] [id number][place] 0303 June, [facility] [place] [facility] [address] [id number] [address]- 2714 June, [facility] [place] [facility] [address] [id number][place] 3640 June, [facility] [place] [facility] [address] [id number] [place] [address]- 6025 30 May, 2014 [facility] [place] [facility] [address] [id number] [place] [address]- 7170 14 May, 2014 [facility] [place] [facility] [address] [id number] [place] [address]- 7827 May, [facility] [place] [facility] [address] [id number] [place] [address]- 4602 30 Apr, 2014 [facility] [place] [facility] [address] [id number] [place] [address]- 0455 30 Apr, 2014 [facility] [place] [facility] [address] [id number] [place] [address]- 0343 Apr, [facility] [place] [facility] [address] [id number] [place] [address]- 3276 Apr, [facility] [place] [facility] [address] [id number] [place] [address]- 7876 Apr, [facility] [place] [facility] [address] [id number] [place] [address]- 7993 Apr, [facility] [place] [facility] [address] [id number] [place] [address]- 1893 Apr, [facility] [place] [facility] [address] [id number], [place] [address]- 9037 Apr, [facility] [place] [facility] [address] [id number], [place] [address]- 6312 Apr, [facility] [place] [facility] [address] [id number] [place] [address]- 0255 Apr, [facility] [place] [facility] [address] [id number] [place] [address]- 3466 Apr, [facility] [place] [facility] [address] [id number] [place] [address]- 6878 Mar, [facility] [place] [facility] [address] [id number] [place] [address]- 4714 26 Mar, 2014 [facility] [place] [facility] [address] [id number] [place] [address]- 0596 Mar, 2014 [facility] [place] [facility] [address] [id number] [place] 7986 16 Mar, 2014 [facility] [place] [facility] [address] [id number] [place] [address]- 8666 Mar, 2014 [facility] [place] [facility] [address] [id number] [place] [address]- 4851 Mar, [facility] [place] [facility] [address] [id number] [place] [address]- 8369 Feb, [facility] [place] [facility] [address] [id number] [place] [address]- 2221 Feb, [facility] [place] [facility] [address] [id number] [place] [address]- 3052 Feb, [facility] [place] [facility] [address] [id number] [place] [address]- 8578 Feb, [facility] [place] [facility] [address] [id number] [place] [address]- 9744 Jan, [facility] [place] [facility] [address] [id number] [place] [address]- 8880 Jan, [facility] [place] [facility] [address] [id number] [place] [address]- 1083 Jan, [facility] [place] [facility] [address] [id number] [place] 6855 Jan, [facility] [place] [facility] [address] [id number] [place] [address]- 6314 Dec, [facility] [place] [facility] [address] [id number] [place] [address]- 5696 Dec, [facility] [place] [facility] [address] [id number] [place] [address]- 9661 Dec, [facility] [place] [facility] [address] [id number] [place] [address]- 0845 Dec, [facility] [place] [facility] [address] [id number] [place] [address]- 3725 Dec, [facility] [place] [facility] [address] [id number] [place] [address]- 9661 Dec, [facility] [place] [facility] [address] [id number] [place] [address]- 3534 Dec, [facility] [place] [facility] [address] [id number] [place] [address]- 6748 Dec, [facility] [place] [facility] [address] [id number] [place] [address]- 1610 Dec, [facility] [place] [facility] [address] [id number] [place] [address]- 1972 Dec, [facility] [place] [facility] [address] [id number] [place] [address]- 2214 Dec, [facility] [place] [facility] [address] [id number] [place] [address]- 5420 Nov, [facility] [place] [facility] [address] [id number] [place] [address]- 9187 Nov, [facility] [place] [facility] [address] [id number] [place] [address]- 4506 28 Nov, 2013 [facility] [place] [facility] [address] [id number][place] [address]- 7069 Nov, [facility] [place] [facility] [address] [id number] [place] [address]- 3346 17 Nov, 2013 [facility] [place] [facility] [address] [id number] [address]- 0323 15 Nov, 2013 [facility] [place] [facility] [address] [id number] [place] [address]- 2762 15 Nov, 2013 [facility] [place] [facility] [address] [id number] [place] [address]- 3824 15 Nov, 2013 [facility] [place] [facility] [address] [id number] [place] [address]- 1621 15 Nov, 2013 [facility] [place] [facility] [address] [id number] [place] [address]- 5324 14 Nov, 2013 [facility] [place] [facility] [address] [id number] [place] [address]- 0313 14 Nov, 2013 [facility] [place] [facility] [address] [id number] [place] [address]- 6126 14 Nov, 2013 [facility] [place] [facility] [address] [id number] [place] [address]- 5402 14 Nov, 2013 [facility] [place] [facility] [address] [id number] [place] [address]- 1918 13 Nov, 2013 [facility] [place] [facility] [address] [id number] [place] [address]- 4971 13 Nov, 2013 [facility] [place] [facility] [address] [id number] [place] [address]- 2120 11 Nov, 2013 [facility] [place] [facility] [address] [id number] [place] [address]- 0401 11 Nov, 2013 [facility] [place] [facility] [address] [id number] [place] [address]- 6057 07 Nov, 2013 [facility] [place] [facility] [address] [id number] [place] [address]- 3909 07 Nov, 2013 [facility] [place] [facility] [address] [id number], [place] [address]- 9058 07 Nov, 2013 [facility] [place] [facility] [address] [id number] [place] [address]- 1880 07 Nov, 2013 [facility] [place] [facility] [address] [id number] [place] [address]- 6389 30 Oct, 2013 [facility] [place] [facility] [address] [id number] [place] [address]- 6687 30 Sep, 2013 [facility] [place] [facility] [address] [id number] [place] [address]- 7885 26 Oct, 2013 [facility] [place] [facility] [address] [id number] [place] [address]- 2516 26 Oct, 2013 [facility] [place] [facility] [address] [id number] [place] [address]- 0236 Oct, 2013 [facility] [place] [facility] [address] [id number] [place] [address]- 6166 Oct, 2013 [facility] [place] [facility] [address] [id number] [place] [address] 2548 18 Oct, 2013 [facility] [place] [facility] [address] [id number] [place] [address]- 9774 18 Oct, 2013 [facility] [place] [facility] [address] [id number] [place] [address]- 7906 Oct, 2013 [facility] [place] [facility] [address] [id number] [place] [address]- 2703 Oct, 2013 [facility] [place] [facility] [address] [id number] [place] [address]- 8780 Oct, 2013 [facility] [place] [facility] [address] [id number] [place] [address]- 4519 Oct, 2013 [facility] [place] [facility] [address] [id number] [place] [address]- 6534 Oct, 2013 [facility] [place] [facility] [address] [id number] [place] [address]- 2547 Oct, 2013 [facility] [place] [facility] [address] [id number] [place] [address]- 0455 Sep, [facility] [place] [facility] [address] [id number] [place] [address]- 2806 Sep, [facility] [place] [facility] [address] [id number] [place] [address]- 9568 Sep, [facility] [place] [facility] [address] [id number] [place] [address]- 9578 Sep, [facility] [place] [facility] [address] [id number] [place] [address]- 2172 Sep, [facility] [place] [facility] [address] [id number] [place] [address]- 2947 Sep, [facility] [place] [facility] [address] [id number] [place] [address]- 8464 Sep, [facility] [place] [facility] [address] [id number] [place] [address]- 0325 Sep, [facility] [place] [facility] [address] [id number] [place] [address]- 4534 Sep, [facility] [place] [facility] [address] [id number] [place] [address]- 0784 Sep, [facility] [place] [facility] [address] [id number] [place] [address]- 1042 Sep, [facility] [place] [facility] [address] [id number] [place] [address]- 4056 Sep, [facility] [place] [facility] [address] [id number] [place] [address]- 8983 Sep, [facility] [place] [facility] [address] [id number] [place] [address]- 9260 Sep, [facility] [place] [facility] [address] [id number] [place] [address]- 3056 Sep, [facility] [place] [facility] [address] [id number] [place] [address]- 0375 Sep, [facility] [place] [facility] [address] [id number] [place] [address]- 0939 Sep, [facility] [place] [facility] [address] [id number] [place] [address]- 9003 Sep, [facility] [place] [facility] [address] [id number] [place] [address]- 6313 Aug, [facility] [place] [facility] [address] [id number] [place] [address]- 2031 Aug, [facility] [address] [id number] [place] [address]- 9254 Aug, [facility] [place] [facility] [address] [id number] [place] [address]- 8901 Aug, [facility] [address] [id number] [place] [address]- 6259 Aug, [facility] [place] [facility] [address] [id number] [place] [address]- 8324 Aug, [facility] [address] [id number] [place] [address]- 4808 Jul, [facility] [address] [id number] [place] [address]- 4167 Jul, [facility] [address] [id number] [place] [address]- 1147 Jul, [facility] [address] [id number] [place] [address]- 7847 Jul, [facility] [place] [facility] [address] [id number] [place] [address]- 3873 June, [facility] [address] [id number] [place] [address]- 8314 June, [facility] [place] [facility] [address] [id number] [place] [address]- 8817 June, [facility] [place] [facility] [address] [id number] [place] [address]- 1157 June, [facility] [place] [facility] [address] [id number] [place] [address]- 8371 June, [facility] [place] [facility] [address] [id number] [place] [address]- 5444 June, [facility] [place] [facility] [address] [id number] [place] [address]- 9741 June, [facility] [place] [facility] [address] [id number] [place] [address]- 3109 May, [facility] [place] [facility] [address] [id number] [place] [address]- 6681 May, [facility] [place] [facility] [address] [id number] [place] [address]- 2943 May, [facility] [place] [facility] [address] [id number] [place] [address]- 8280 May, [facility] [place] [facility] [address] [id number] [place] [address]- 9245 May, [facility] [place] [facility] [address] [id number] [place] [address]- 2809 May, [facility] [place] [facility] [address] [id number] [place] [address]- 5779 31 Apr, 2013 [facility] [place] [facility] [address] [id number] [place] [address]- 9434 31 Apr, 2013 [facility] [place] [facility] [address] [id number] [place] [address]- 0123 28 Apr, 2013 [facility] [place] [facility] [address] [id number] [place] [address]- 0030 28 Apr, 2013 [facility] [place] [facility] [address] [id number] [place] [address]- 8708 14 Apr, 2013 [facility] [place] [facility] [address] [id number] [place] [address]- 7469 14 Apr, 2013 [facility] [place] [facility] [address] [id number] [place] [address]- 2392 12 Apr, 2013 [facility] [place] [facility] [address] [id number] [place] 3750 12 Apr, 2013 [facility] [place] [facility] [address] [id number] [place] [address]- 6189 10 Apr, 2013 [facility] [place] [facility] [address] [id number], [place] [address]- 4183 Apr, [facility] [place] [facility] [address] [id number] [place] [address]- 4683 Apr, [facility] [place] [facility] [address] [id number] [place] [address]- 6657 Apr, [facility] [place] [facility] [address] [id number] [place] [address]- 3520 Apr, [facility] [place] [facility] [address] [id number] [place] [address]- 2984 Apr, [facility] [place] [facility] [address] [id number] [place] [address]- 0484 Mar, [facility] [place] [facility] [address] [id number] [place] [address]- 1298 Mar, [facility] [place] [facility] [address] [id number] [place] [address]- 0522 Mar, [facility] [place] [facility] [address] [id number] [place] [address]- 6474 Feb, [facility] [place] [facility] [address] [id number] [place] [address]- 3525 Feb, [facility] [place] [facility] [address] [id number] [place] [address] Feb, [facility] [place] [facility] [address] [id number] [place] [address] Feb, [facility] [place] [facility] [address] [id number] [place] [address] Feb, [facility] [place] [facility] [address] [id number] [place] [address] Feb, [facility] [place] [facility] [address] [id number] [place] [address] Feb, [facility] [place] [facility] [address] [id number] [place] [address] Feb, [facility] [place] [facility] [address] [id number] [place] [address] Feb, [facility] [address] [id number] [place] [address] Feb, [facility] [place] [facility] [address] [id number] [place] [address] Jan, [facility] [place] [facility] [address] [id number] [place] [address] Jan, [facility] [place] [facility] [address] [id number] [place] [address] Jan, [facility] [place] [facility] [address] [id number] [place] [address] Jan, [facility] [address] [id number] [place] [address] Jan, [facility] [address] [id number] [place] [address] Jan, [facility] [address] [id number] [place] [address] Jan, [facility] [address] [id number] [place] [address] Jan, [facility] [address] [id number] [place] [address] Jan, [facility] [place] [facility] [address] [id number] [place] [address] Jan, [facility] [place] [facility] [address] [id number] [place] [address] 17 Jan, 2013 [facility] [place] [facility] [address] [id number] [place] [address] 17 Jan, 2013 [facility] [place] [facility] [address] [id number] [place] [address] 16 Jan, 2013 [facility] [place] [facility] [address] [id number] [place] [address] Jan, [facility] [address] [id number] [place] [address] 3766 Jan, [facility] [place] [facility] [address] [id number] [address] Jan, [facility] [place] [facility] [address] [facility] [id number] [place] [address] Jan, [facility] [place] [facility] [address] [id number], [place] [address] Jan, [facility] [place] [facility] [address] [id number] [place] [address] Jan, [facility] [place] [facility] [address] [id number] [place] [address] Jan, [facility] [place] [facility] [address] [facility] [id number], [place] [address] Jan, [facility] [place] [facility] [address] [id number], [place] [address] Dec, [facility] [place] [facility] [address] [id number], [place] [address] Dec, [facility] [place] [facility] [address] [id number], [place] [address] Dec, [facility] [place] [facility] [address] [id number], [place] [address] Dec, [facility] [place] [facility] [address] [id number], [place] [address] Dec, [facility] [place] [facility] [address] [id number], [place] [address] Dec, [facility] [place] [facility] [address] [id number], [place] [address] Dec, [facility] [place] [facility] [address] [id number], [place] [address]- [address] Dec, [facility] [place] [facility] [address] [id number] [place] [address]- [address] Dec, [facility] [place] [facility] [address] [id number] [place] [address] Dec, [facility] [place] [facility] [address] [id number] [place] [address] Nov, [facility] [place] [facility] [address] [id number] [place] [address] Nov, [facility] [place] [facility] [address] [id number] [place] [address] Nov, [facility] [place] [facility] [address] [id number] [place] [address]- [address] Nov, [facility] [place] [facility] [address] [id number] [place] [address]- [address] Nov, [facility] [place] [facility] [address] [id number] [place] [address]- 16[address] Nov, [facility] [place] [facility] [address] [id number] [place] [address] Nov, [facility] [place] [facility] [address] [id number] [place] [address]- 83[address] Nov, [facility] [place] [facility] [address] [id number] [place] [address] Nov, [facility] [place] [facility] [address] [id number] [place] [address] Nov, [facility] [place] [facility] [address] [id number] [place] [address] 74[address] Oct, [facility] [place] [facility] [address] [id number] [place] [address] 9869 Oct, [facility] [place] [facility] [address] [id number] [place] [address] Oct, [facility] [place] [facility] [address] [id number] [place] [address]- 1026 Oct, [facility] [place] [facility] [address] [id number] [place] [address] Oct, [facility] [address] [id number] [place] [address]- [address] Sep, [facility] [address] [id number] [place] [address] Sep, [facility] [address] [id number] [place] [address] Aug, [facility] [address] [id number] [place] [address] Aug, [facility] [address] [id number] [place] [address] 1996 Aug, [facility] [address] [id number] [place] [address] Aug, [facility] [address] [id number] [place] [address] Aug, [facility] [address] [id number] [place] [address] Aug, [facility] [address] [id number] [place] [address] Aug, [facility] [address] [id number] [place] [address] Jul, [facility] [address] [id number] [place] [address] Jul, [facility] [address] [id number] [place] [address] June, [facility] [place] [facility] [address] [id number] [place] [address] June, [facility] [address] [id number] [place] [address] June, [facility] [address] [id number] [place] [address] 67[address] June, [facility] [address] [id number] [place] [address] 6162 June, [facility] [address] [id number] [place] [address] 39[address] June, [facility] [address] [id number] [place] [address] June, [facility] [address] [id number] [place] [address] 9178 June, [facility] [address] [id number] [place] [address] 5[address] June, [facility] [address] [id number] [place] [address] 7014 June, [facility] [address] [id number] [place] [address] June, [facility] [address] [id number] [place] [address] 9[address] May, [facility] [address] [id number] [place] [address] 7008 May, [facility] [address] [id number] [place] [address] 290[address] May, [facility] [address] [id number] [place] [address] 16[address] May, [facility] [place] [facility] [address] [id number] [place] [address] Apr, [facility] [place] [facility] [address] [id number] [place] [address] 53[address] Apr, [facility] [place] [facility] [address] [id number] [place] [address] 8880 Apr, [facility] [place] [facility] [address] [id number] [place] [address]358 Mar, [facility] [place] [facility] [address] [id number] [place] [address] 11 Mar, 2012 [facility] [address] [id number] [place] [address] 1066 Feb, [facility] [place] [facility] [address] [id number] [place] [address] 8976 Feb, [facility] [address] [id number] [place] [address] 8[address] Feb, [facility] [place] [facility] [address] [id number] [place] [address] Feb, [facility] [address] [id number] [place] [address] 4[address] Feb, [facility] [address] [id number] [place] [address] 4816 Feb, [facility] [address] [id number] [place] [address]- 5[address] Feb, [facility] [address] [id number] [place] [address]605 Jan, [facility] [address] [id number] [place] [address] 75[address] 31 Jan, 2012 [facility] [address] [id number] [place] [address] 9697 Jan, [facility] [address] [id number] [place] [address] 9706 17 Jan, 2012 [facility] [address] [id number] [place] [address] 2546 17 Jan, 2012 [facility] [place] [facility] [address] [id number] [place] [address] 4056 Jan, [facility] [place] [facility] [address] [id number] [place] [address] 6136 Jan, [facility] [place] [facility] [address] [id number] [place] [address] 7648 Jan, [facility] [place] [facility] [address] [id number] [place] [address] 5604 Jan, [facility] [place] [facility] [address] [id number] [place] [address] 7864 Jan, [facility] [place] [facility] [address] [id number] [place] [address] Jan, [facility] [place] [facility] [address] [id number] [place] [address] 3572 Dec, [facility] [place] [facility] [address] [id number] [place] [address] 3532 Dec, [facility] [place] [facility] [address] [id number] [place] [address] 8676 Dec, [facility] [place] [facility] [address] [id number] [place] [address] 2239 Dec, [facility] [place] [facility] [address] [id number] [place] [address] 2772 Nov, [facility] [place] [facility] [address] [id number] [place] [address] 4[address] Nov, [facility] [place] [facility] [address] [id number] [address] 230[address] Nov, [facility] [place] [facility] [address] [id number], [place] [address] 27 Oct, 2011 [facility] [place] [facility] [address] [id number], [place] [address] 24 Sep2011 [facility] [place] [facility] [address] [id number] [place] [address] 4480 21 Sep2011 [facility] [place] [facility] [address] [id number] [place] [address] 0[address] 10 Oct, 2011 [facility] [place] [facility] [address] [id number] [place] [address] 07 Oct, 2011 [facility] [place] [facility] [address] [id number] [place] [address] 8544 04 Oct, 2011 [facility] [place] [facility] [address] [id number] [place] [address] 0366 Oct, [facility] [place] [facility] [address] [id number] [place] [address] 7986 Sep, [facility] [place] [facility] [address] [id number] [place] [address] 1216 Sep, [facility] [place] [facility] [address] [id number] [place] [address] 8364 Sep, [facility] [place] [facility] [address] [id number] [place] [address] 3378 Sep, [facility] [place] [facility] [address] [id number] [place] [address] 5902 Sep, [facility] [place] [facility] [address] [id number] [place] [address] 2192 Aug, [facility] [place] [facility] [address] [id number] [place] [address] 8771 Aug, [facility] [place] [facility] [address] [id number] [place] [address] 2954 Aug, [facility] [place] [facility] [address] [id number] [place] [address] 7248 Aug, [facility] [place] [facility] [address] [id number] [place] [address]- 5284 Aug, [facility] [place] [facility] [address] [id number] [place] [address] 6613 Aug, [facility] [place] [facility] [address] [id number] [place] [address] 8545 Aug, [facility] [place] [facility] [address] [id number] [place] [address]- 3548 Jul, [facility] [place] [facility] [address] [id number] [place] [address]- 4427 Jul, [facility] [place] [facility] [address] [id number] [place] [address] 7071 Jul, [facility] [place] [facility] [address] [id number] [place] [address]- 2020 Jul, [facility] [place] [facility] [address] [id number] [place] [address] 6327 Jul, [facility] [place] [facility] [address] [id number] [place] [address] 4953 Jul, [facility] [place] [facility] [address] [id number] [place] [address]- 3607 07 Jul, 2011 [facility] [place] [facility] [address] [id number] [place] [address] 8033 Jul, [facility] [place] [facility] [address] [id number] [place] [address] 8011 Jul, [facility] [place] [facility] [address] [id number] [place] [address]- 1725 June, [facility] [place] [facility] [address] [id number] [place] [address] 8600 June, [facility] [place] [facility] [address] [id number] [place] [address] 6858 June[facility] [place] [facility] [address] [id number] [place] [address] 9368 June, [facility] [place] [facility] [address] [id number] [place] [address]- 0399 June, [facility] [place] [facility] [address] [id number] [place] [address]- 0837 June, [facility] [place] [facility] [address] [id number] [place] [address]- 4414 June, [facility] [place] [facility] [address] [id number] [place] [address]- 6859 June, [facility] [place] [facility] [address] [id number] [place] [address]- 3596 May, [facility] [place] [facility] [address] [id number] [place] [address]- 1160 May, [facility] [place] [facility] [address] [id number] [place] [address]- 4556 May, [facility] [place] [facility] [address] [id number] [place] [address]- 0647 May, [facility] [place] [facility] [address] [id number] [place] [address]- 8013 May, [facility] [place] [facility] [address] [id number] [place] [address]- 7262 May, [facility] [place] [facility] [address] [id number] [place] May, [facility] [place] [facility] [address] [id number] [place] [address]- 0854 Apr, [facility] [place] [facility] [address] [id number] [place] [address]- 1475 Apr, [facility] [place] [facility] [address] [id number] [place] [address]- 1294 Apr, [facility] [place] [facility] [address] [id number] [place] [address]- 8538 Apr, [facility] [place] [facility] [address] [id number] [place] [address]- 1318 Apr, [facility] [place] [facility] [address] [id number] [place] [address]- 5857 Apr, [facility] [place] [facility] [address] [id number] [place] [address]- 5225 Apr, [facility] [place] [facility] [address] [id number] [place] [address]- 3046 Mar, [facility] [place] [facility] [address] [id number] [place] [address]- 7064 Mar, [facility] [place] [facility] [address] [id number] [place] [address]- 0016 14 Mar, 2011 [facility] [address] [id number] [place] [address]- 6476 13 Mar, 2011 [facility] [place] [facility] [address] [id number] [place] [address]- 0956 09 Mar, 2011 [facility] [address] [id number] [place] [address]- 2886 08 Mar, 2011 [facility] [address] [id number] [place] [address] 2542 Mar, [facility] [address] [id number] [place] [address]- 4493 Feb, [facility] [address] [id number] [place] [address]- 9829 Feb, [facility] [address] [id number] [place] [address]- 9113 Feb, [facility] [address] [id number] [place] [address]- 8458 Feb, [facility] [address] [id number] [place] [address]- 8858 Feb, [facility] [address] [id number] [place] [address]- 5620 Feb, [facility] [address] [id number] [place] [address]- 9275 Feb, [facility] [place] [facility] [address] [id number] [place] [address]- 7887 Feb, [facility] [place] [facility] [address] [id number] [place] [address]- 1412 Feb, [facility] [place] [facility] [address] [id number] [place] [address]- 4372 Feb, [facility] [place] [facility] [address] [id number] [place] [address]- 3893 27 Jan, 2011 [facility] [place] [facility] [address] [id number] [place] [address]- 4347 Jan, [facility] [place] [facility] [address] [id number] [place] [address]- 7336 Jan, [facility] [place] [facility] [address] [id number] [place] [address]- 7076 Jan, [facility] [place] [facility] [address] [id number] [place] [address]- 1108 Jan, [facility] [place] [facility] [address] [id number] [place] [address]- 3584 Jan, [facility] [place] [facility] [address] [id number] [place] [address]- 3637 Jan, [facility] [place] [facility] [address] [id number] [place] [address]- 9986 Jan, [facility] [place] [facility] [address] [id number] [place] [address]- 8497 Jan, [facility] [place] [facility] [address] [id number] [place] [address]- 0007 Jan, [facility] [place] [facility] [address] [id number] [place] [address]- 7404 Jan, [facility] [place] [facility] [address] [id number] [place] [address]- 5683 17 Dec, 2010 [facility] [place] [facility] [address] [id number] [address]- 2910 17 Dec, 2010 [facility] [place] [facility] [address] [id number] [place] [address]- 1727 17 Dec, 2010 [facility] [place] [facility] [address] [id number] [place] [address]- 1416 16 Dec, 2010 [facility] [place] [facility] [address] [id number] [place] [address]- 0170 14 Dec, 2010 [facility] [place] [facility] [address] [id number] [place] [address]- 5821 09 Dec, 2010 [facility] [address] [id number] [place] [address]- 1689 Dec, [facility] [place] [facility] [address] [id number] [place] [address] Dec, [facility] [address] [id number] [place] [address]- 9597 Dec, [facility] [place] [facility] [address] [id number] [place] [address]- 9188 Nov, [facility] [address] [id number] [place] [address]- 7519 Nov, [facility] [place] [facility] [address] [id number] [place] [address]- 2522 Nov, [facility] [address] [id number] [place] [address]- 7562 Nov, [facility] [address] [id number] [place] [address]- 9146 24 Nov, 2010 [facility] [place] [facility] [address] [id number] [place] [address]- 6601 Nov, [facility] [address] [id number] [place] [address]- 1022 Aug, [facility] [place] [facility] [address] [id number] [place] [address]- 2065 14 Feb, 2010 [facility] [place] [facility] [address] [id number] [place] [address]- 4343 14 Jan, 2010 [facility] [place] [facility] [address] [id number] [place] [address]- 1048 Jan, [facility] [place] [facility] [address] [id number] [place] [address]- 0331 Jan, [facility] [place] [facility] [address] [id number] [place] [address]- 1236 Jan, [facility] [address] [id number], [place] [address] 2546 Jan, [facility] [id number], [place] [address] 2546 Dec, [facility] [id number], [place] [address]- 2546 Dec, [facility] [id number], [place] [address]- 2546 Dec, [facility] [id number], [place] [address] 2546 Dec, [facility] [id number], [place] [address]- 1606 Nov, [facility] [id number], [place] [address] 2546 Nov, [facility] [address] [id number], [place] [address]- [address]36 Nov, IMMUNIZATIONS No Known Immunizations SOCIAL HISTORY Never Assessed REASON FOR VISIT f/u PLAN OF CARE Activity Details Follow Up 2 Weeks Reason:Depression, anxiety, Substance dependance VITAL SIGNS MEDICATIONS Unknown Medications RESULTS No Results PROCEDURES Procedure Date Ordered Result Body Site Psychotherapy, patient &/family, 30 minutes, established patient May 01, 2017 INSTRUCTIONS MEDICATIONS ADMINISTERED No [...]
--- OUTSIDE RECORDS SUMMARY | 2018-01-13 21:06 | XMS REPORT ---
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 Active 382862005 Problem Hypertension I10 Active 38312925 Problem Arthritis M19.90 Active 1178186 Problem 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 Active 61713538 Problem Anxiety F41.9 Active 38494717 Problem Unspecified episodic mood disorder F39 Active 42663135 Problem Left hip pain M25.552 Active 71382341 ALLERGIES No Information ENCOUNTERS Encounter Location Date Diagnosis [facility] [address] [id number] [id number] Aug, [facility] [address] [facility] [id number] [address] Aug, Arthritis M19.90 [facility] [address] [facility] [id number] [address] Aug, [facility] [address] [address] Aug, Obesity (BMI 30.0-34.9) E66.9 ; Unspecified episodic mood disorder F39 and Hypertension I10 [facility] [address] [id number] [address] Aug, Unspecified episodic mood disorder F39 [facility] [id number] [place] [address] 53694- 3622 Aug, [facility] [id number] [place] [address] 24077- 7473 Jul, Unspecified episodic mood disorder F39 [facility] [id number] [place] [address] 59218- 3562 Jul, [facility] [id number] [place] [address] 84669- 9411 Jul, Arthritis M19.90 [facility] [id number] [place] [address] 67598- 3386 Jul, Left hip pain M25.552 ; Hypertension I10 ; Other obesity due to excess calories E66.09 and Body mass index (BMI) of 34.0-34.9 in adult Z68.34 [facility] [address] [place] [address] 30153- 5667 Jul, Unspecified episodic mood disorder F39 [facility] [id number] [place] [address] 19219- 1256 June, Gastroesophageal reflux disease, esophagitis presence not specified K21.9 [facility] [id number] [place] [address] 69111- 2325 June, [facility] [id number] [place] [address] 41795- 7729 June, [facility] [id number] [place] [address] 51809- 2368 June, Arthritis M19.90 [facility] [address] [address] 96[address] June, [facility] [address], [place] [address] 59[address] June, [facility] [address], [place] [address] June, Unspecified episodic mood disorder F39 [facility] [id number] [place] [address] 18473- 6452 May, Unspecified episodic mood disorder F39 [facility] [id number] [place] [address] 60044- 5657 May, [facility] [id number] [place] [address] 00888- 9149 May, Arthritis M19.90 [facility] [id number] [place] [address] 07111 -0071 May, Dysuria R30.0 ; Abscess L02.91 and Acute cystitis without hematuria N30.00 [facility] [address] [place] [address] 68943- 7837 May, Other disorder of impulse control F63.89 ; Unspecified episodic mood disorder F39 ; Combined drug dependence excluding opioids, 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 ; Anxiety F41.9 and Other psychoactive substance dependence, 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 [facility] [address] [address] 02[address] May, [facility] [id number] [place] [address] 18700- 5415 May, Other disorder of impulse control F63.89 ; Unspecified episodic mood disorder F39 ; Combined drug dependence excluding opioids, 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 ; Other psychoactive substance dependence, 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 and Anxiety F41.9 [facility] [address] [address] 1396 May, Other chronic pain G89.29 ; Left hip pain M25.552 ; Hypertension I10 ; 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, 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 and Unspecified episodic mood disorder F39 [facility] [id number] [place] [address] 15856- 5733 28 Apr, 2017 [facility] [id number] [place] [address] 26802 -0119 Apr, Neck pain M54.2 ; Left hip pain M25.552 and Fall, initial encounter W19.XXXA [facility] [id number] [place] [address] 54668- 6424 Apr, Unspecified episodic mood disorder F39 ; Combined drug dependence excluding opioids, 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 ; Anxiety F41.9 ; Other psychoactive substance dependence, 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 and Other disorder of impulse control F63.89 [facility] [id number] [place] [address] 82345- 1090 Apr, [facility] [id number] [place] [address] 50588- 6691 Apr, Arthritis M19.90 and Unspecified episodic mood disorder F39 [facility] [id number] [place] [address] 25496- 9865 Apr, Unspecified episodic mood disorder F39 [facility] [address], [place] [address] 8581 Apr, [facility] [id number] [place] [address] 72736- 1413 08 Apr, 2017 [facility] [id number] [place] [address] 45550- 1834 07 Apr, 2017 Unspecified episodic mood disorder F39 ; Combined drug dependence excluding opioids, 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 ; Anxiety F41.9 ; Other psychoactive substance dependence, 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 and Other disorder of impulse control F63.89 [facility] [id number] [place] [address] 06896- 8499 Mar, Unspecified episodic mood disorder F39 [facility] [address] [address] 6[address] Mar, Gastroesophageal reflux disease, esophagitis presence not specified K21.9 [facility] [id number] [place] [address] 95051 2546 Mar, Arthritis M19.90 and Unspecified episodic mood disorder F39 [facility] [id number] [place] [address] 08989 2546 Feb, [facility] [id number] [place] [address] 93733 2546 Feb, [facility] [id number] [place] [address] 62417- 6056 Feb, [facility] [id number] [place] [address] 51910- 7236 Feb, Arthritis M19.90 [facility] [id number] [place] [address] 01832 2540 Feb, Non-pressure chronic ulcer of right calf, 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 ; Unspecified episodic mood disorder F39 and Left hip pain M25.552 [facility] [id number] [place] [address] 75141 2546 Feb, [facility] [id number] [place] [address] 52227 2546 Feb, [facility] [id number] [place] [address] 09752 2546 Jan, Arthritis M19.90 [facility] [id number] [place] [address] 04142 2546 Jan, Left hip pain M25.552 and Non-pressure chronic ulcer of right calf, 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 [facility] [address] [address] 2546 Jan, Chronic hepatitis C without hepatic coma B18.2 [facility] [id number] [place] [address] 92418- 0246 Jan, Encounter for immunization Z23 ; Venous insufficiency ( chronic) (peripheral) I87.2 ; Non-pressure chronic ulcer of unspecified calf limited to breakdown of skin L97.201 and Gastroesophageal reflux disease, esophagitis presence not specified K21.9 [facility] [id number] [place] [address] 23113- 0706 Jan, [facility] [id number] [place] [address] 97914- 2547 Jan, Chronic hepatitis C without hepatic coma B18.2 and Encounter for immunization Z23 [facility] [address] 10949- 3966 Jan, Arthritis M19.90 [facility] [id number] [place] [address] 19854- 8546 Jan, [facility] [id number] [place] [address] 76649- 7021 Dec, [facility] [id number] [place] [address] 12600- 2546 Dec, Unspecified episodic mood disorder F39 [facility] [id number] [place] [address] 71911 2546 Dec, Arthritis M19.90 [facility] [id number] [place] [address] 70726 2546 Dec, Arthritis M19.90 [facility] [id number] [place] [address] 89476- 2548 Nov, [facility] [address] 30840- 2546 Nov, [facility] [id number] [place] [address] 16000- 2546 Nov, Other psychoactive substance dependence, 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 ; 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, 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 and Chronic hepatitis C without hepatic coma B18.2 [facility] [id number] [place] [address] 10345- 8158 Nov, Arthritis M19.90 [facility] [id number] [place] [address] 02120 -8404 Oct, Partial thickness burn of abdomen, initial encounter T21.22XA [facility] [id number] [place] [address] 56017- 7093 Oct, [facility] [id number] [place] [address] 18510- 2430 Sep, Arthritis M19.90 [facility] [id number] [place] [address] 13641- 2174 Sep, [facility] [id number] [place] [address] 50786- 6945 Sep, [facility] [id number] [place] [address] 21798- 2394 Sep, Unspecified episodic mood disorder F39 ; Chronic hepatitis C without hepatic coma B18.2 and Left hip pain M25.552 [facility] [id number] [place] [address] 83784- 3590 Sep, Arthritis M19.90 and Left hip pain M25.552 [facility] [id number] [place] [address] 95171- 7996 Aug, [facility] [id number] [place] [address] 77295- 9679 Aug, [facility] [id number] [place] [address] 00804- 5078 Aug, Chronic hepatitis C without hepatic coma B18.2 [facility] [address], [place] [address]- 9830 Aug, [facility] [id number] [place] [address] 12246- 7684 Aug, Chronic hepatitis C without hepatic coma B18.2 [facility] [id number] [place] [address] 55259- 5008 Aug, 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, 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 [facility] [id number] [place] [address] 05327- 8082 Aug, [facility] [id number] [place] [address] 13181- 9525 Aug, Chronic hepatitis C without hepatic coma B18.2 and Hypertension I10 [facility] [id number] [place] [address] 44262- 4552 Jul, [facility] [id number] [place] [address] 05546- 3214 June, [facility] [id number] [place] [address] 04173- 3227 Apr, Fibromyalgia M79.7 ; Left hip pain M25.552 and Decubitus ulcer of sacral region, stage 1 L89.151 [facility] [id number] [place] [address] 78216- 3033 Apr, [facility] [id number] [place] [address] 53084- 4477 Apr, [facility] [id number] [place] [address] 17891- 5957 Feb, [facility] [id number] [place] [address] 69395- 7675 Dec, Anxiety F41.9 ; Combined drug dependence excluding opioids, 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 and Unspecified episodic mood disorder F39 [facility] [id number] [place] [address] 63106- 6598 Dec, [facility] [id number] [place] [address] 78055- 6245 Nov, [facility] [address] [place] [address]- 8086 Nov, [facility] [id number] [place] [address] 91797- 1972 Nov, Other disorder of impulse control F63.89 and Anxiety F41.9 [facility] [id number] [place] [address] 76754- 4573 21 Oct, 2015 [facility] [id number] [place] [address] 24178 -9878 14 Oct, 2015 Open wound of left thigh, initial encounter S71.102A [facility] [id number] [place] [address] 96472- 6947 Oct, [facility] [id number] [place] [address] 24639- 3987 Sep, Unspecified episodic mood disorder F39 ; Other disorder of impulse control 312.39 ; Combined drug dependence excluding opioids, 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 and Anxiety F41.9 [facility] [address] [place] [address] 44473- 9047 Sep, Other disorder of impulse control 312.39 ; Combined drug dependence excluding opioids, 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 ; Anxiety F41.9 and Unspecified episodic mood disorder F39 [facility] [address] [place] [address] 16507- 8378 Sep, Other chronic pain G89.29 [facility] [id number] [place] [address] 35543- 0768 Sep, [facility] [id number] [place] [address] 42870- 6251 Sep, [facility] [id number] [place] [address] 69250- 2619 Aug, [facility] [address] [place] [address] 68499- 8260 Aug, [facility] [id number] [place] [address] 91579- 3177 Aug, [facility] [address] [place] [address] 86242- 5401 Jul, [facility] [id number] [place] [address] 87283- 7227 Jul, [facility] [id number] [place] [address] 96493- 5865 Jul, [facility] [id number] [place] [address] 63127- 4741 Jul, Arthritis M19.90 ; Chronic hepatitis C without hepatic coma B18.2 and Left hip pain M25.552 [facility] [id number] [place] [address] 23334- 0383 Jul, Left knee pain M25.562 [facility] [id number] [place] [address] 09989- 9540 Jul, Combined drug dependence excluding opioids, 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 ; Anxiety F41.9 ; Other disorder of impulse control 312.39 and Unspecified episodic mood disorder F39 [facility] [id number] [place] [address] 94031- 7783 Jul, Left knee pain M25.562 [facility] [address] [place] [address] 18717- 4997 Jul, Left knee pain M25.562 and Left hip pain M25.552 [facility] [address] [place] [address] 91943- 8397 Jul, [facility] [address] [place] [address] 02510- 7771 June, [facility] [id number] [place] [address] 63958- 8220 June, Combinations of drug dependence excluding opioid type drug, unspecified abuse 304.80 ; Other disorder of impulse control 312.39 ; Unspecified episodic mood disorder F39 and Anxiety F41.9 [facility] [address] [address]- 1575 June, Other fatigue R53.83 ; Headache R51 and Left knee pain M25.562 [facility] [address] [place] [address] 49488- 4950 June, Unspecified episodic mood disorder F39 ; Combinations of drug dependence excluding opioid type drug, unspecified abuse 304.80 ; Other disorder of impulse control 312.39 and Anxiety F41.9 [facility] [id number] [place] [address] 98038- 3188 June, Anxiety F41.9 [facility] [id number] [place] [address] 27400- 0681 June, Pain in left knee M25.562 [facility] [address] [place] [address] 89606- 6742 June, Anxiety F41.9 and Combinations of drug dependence excluding opioid type drug, unspecified abuse 304.80 [facility] [address] [place] [address] 36591- 0058 June, Unspecified episodic mood disorder 296.90 ; Combinations of drug dependence excluding opioid type drug, unspecified abuse 304.80 and Other disorder of impulse control 312.39 [facility] [address] [place] [address] 61118- 9577 June, Anxiety F41.9 and Unspecified episodic mood disorder 296.90 [facility] [address] [address]- 9783 May, Arthritis M19.90 [facility] [address] [address]- 2495 May, Arthritis M19.90 [facility] [address] [place] [address] 82885- 5966 May, Anxiety F41.9 ; Combinations of drug dependence excluding opioid type drug, unspecified abuse 304.80 and Other disorder of impulse control 312.39 [facility] [id number] [address]- 9765 18 May, 2015 Left knee pain M25.562 [facility] [address] [place] [address] 84474- 9161 14 May, 2015 Arthritis M19.90 [facility] [address] [address]- 0526 May, [facility] [id number] [place] [address] 61021- 2134 May, Anxiety F41.9 ; Unspecified episodic mood disorder 296.90 ; Combinations of drug dependence excluding opioid type drug, unspecified abuse 304.80 and Other disorder of impulse control 312.39 [place] [id number] [place] [address] 42037- 1499 May, Left knee pain M25.562 [facility] [id number] [place] [address] 05656- 2408 May, Left knee pain M25.562 ; Combinations of drug dependence excluding opioid type drug, unspecified abuse 304.80 ; Other disorder of impulse control 312.39 ; Fibromyalgia M79.7 ; Hypertension I10 ; Unspecified episodic mood disorder 296.90 and Left hip pain M25.552 [facility] [address] [address]- 6056 May, Unspecified episodic mood disorder 296.90 ; Other disorder of impulse control 312.39 ; Combinations of drug dependence excluding opioid type drug, unspecified abuse 304.80 and Anxiety F41.9 [facility] [id number] [address]- 6677 May, Left knee pain M25.562 ; Combinations of drug dependence excluding opioid type drug, unspecified abuse 304.80 ; Other disorder of impulse control 312.39 ; Fibromyalgia M79.7 ; Hypertension I10 ; Unspecified episodic mood disorder 296.90 and Left hip pain M25.552 [facility] [address] [place] [address] 00785- 1389 May, Anxiety F41.9 ; Unspecified episodic mood disorder 296.90 ; Other disorder of impulse control 312.39 and Combinations of drug dependence excluding opioid type drug, unspecified abuse 304.80 [facility] [id number] [place] [address] [phone]- [phone] 30 Apr, 2015 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 and 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, implants and grafts, initial encounter T84.82XA [facility] [id number] [place] [address] [phone]- [phone] Apr, Anxiety F41.9 ; Unspecified episodic mood disorder 296.90 ; Combinations of drug dependence excluding opioid type drug, unspecified abuse 304.80 and Other disorder of impulse control 312.39 [facility] [id number] [place] [address] [phone]- [phone] Apr, Arthritis M19.90 [facility] [id number] [place] [address] [phone]- [phone] Apr, Anxiety F41.9 ; Unspecified episodic mood disorder 296.90 ; Combinations of drug dependence excluding opioid type drug, unspecified abuse 304.80 and Other disorder of impulse control 312.39 [facility] [id number] [place] [address] 26049- [phone] 17 Apr, 2015 Arthritis M19.90 [facility] [id number] [place] [address] [phone]- [phone] 15 Apr, 2015 [facility] [facility] [id number] [place] [address] 60096- 3493 15 Apr, 2015 [facility] [id number] [place] [address] 88399- 3797 14 Apr, 2015 Unspecified episodic mood disorder 296.90 ; Combinations of drug dependence excluding opioid type drug, unspecified abuse 304.80 ; Other disorder of impulse control 312.39 and Anxiety F41.9 [facility] [id number] [place] [address] 20635 -6024 11 Apr, 2015 Left knee pain M25.562 [facility] [address] [address] 7406 Apr, [place] [id number] [place] [address] 81005- 7987 Mar, Unspecified episodic mood disorder 296.90 ; Anxiety F41.9 ; Other disorder of impulse control 312.39 and Combinations of drug dependence excluding opioid type drug, unspecified abuse 304.80 [place] [id number] [place] [address] 80990- 4845 Mar, Hyperpigmentation L81.9 [place] [id number] [place] [address] 89410- 2770 Mar, Arthritis M19.90 and Anxiety F41.9 [place] [id number] [place] [address] 70284- 9024 Mar, Unspecified episodic mood disorder F39 ; Combined drug dependence excluding opioids, 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 ; Other disorder of impulse control F63.89 and Anxiety F41.9 [place] [id number] [place] [address] 63499- 7921 12 Mar, 2015 Well woman exam Z01.419 ; Other fatigue R53.83 ; Hot flashes N95.1 ; Depression, unspecified depression type F32.9 and Body mass index (BMI) of 23.0-23.9 in adult Z68.23 [id number] [place] [address] 70910- 9156 11 Mar, 2015 Unspecified episodic mood disorder 296.90 ; Other disorder of impulse control 312.39 and Anxiety F41.9 [place] [id number] [place] [address] 59520- 4700 11 Mar, 2015 Well woman exam Z01.419 [...] of breast Z12.39 and Limited mobility Z74.09 [place] [address] 64000- 9560 Mar, [place] [address] 53539- 0153 Mar, [address] 37494- 3616 Mar, [address] 56406- 0700 Mar, Other specified complication of internal orthopedic prosthetic devices, implants and grafts, initial encounter T84.89XA ; Fibromyalgia M79.7 ; Hypertension I10 ; Anemia D64.9 ; Insomnia G47.00 ; Anxiety F41.9 ; Arthritis M19.90 and Migraine G43.[address] 06598- 6514 Mar, [place] [address] 49536- 5027 Feb, [place] [address] 36816- 7282 Feb, Arthritis M19.90 and Anxiety F41.9 [place] [address] 48066- 5258 Feb, [place] [address] 60184- 0818 Feb, [place] [address] 03203- 6114 Feb, [address] [id number] [address] 0081 Feb, [facility] [id number] [place] [address] 20715- 7538 Feb, Anxiety F41.9 [facility] [id number] [place] [address] 29188- 4840 15 Feb, 2015 [facility] [id number] [place] [address] 95074- 6935 Feb, [facility] [id number] [place] [address] 02626- 6013 Feb, 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 and Fibromyalgia M79.7 [facility] [id number] [place] [address] 17553- 2737 Feb, [facility] [id number] [place] [address] 75900- 5372 Jan, [facility] [id number] [address] 7783 Jan, [facility] [id number] [place] [address] 57478- 8263 Jan, [facility] [address] [address]- 9420 24 Jan, 2015 [facility] [id number] [place] [address] 25373- 7656 16 Jan, 2015 [facility] [address] [address]- 4811 08 Jan, 2015 [facility] [id number] [place] [address] 36591- 2996 Jan, [facility] [address], [place] [address]- 7329 07 Jan, 2015 [facility] [address] [address]- 4564 Dec, [facility] [address], [place] [address] 2877 17 Dec, 2014 Left knee pain M25.562 [facility] [id number] [place] [address] 95334- 9701 Dec, Left knee pain M25.562 [facility] [id number] [place] [address] 19684- 0357 16 Dec, 2014 Fibromyalgia M79.7 ; Hypertension I10 and Arthritis M19.90 [facility] [id number] [place] [address] 10802- 6820 Dec, [facility] [id number] [place] [address] 30888- 2514 Dec, [facility] [id number] [place] [address] 90237- 0788 Dec, [facility] [id number] [place] [address] 87093- 5795 Dec, [facility] [id number] [place] [address] 49401- 2859 Nov, [facility] [id number] [place] [address] 54886- 8802 Nov, [facility] [id number] [place] [address] 32018- 4510 Nov, [facility] [id number] [place] [address] 99451- 0372 Nov, Hypertension I10 [facility] [address] [address]- 3494 23 Oct, 2014 [facility] [id number] [place] [address] 62794- 8378 17 Oct, 2014 [facility] [address] [address]- 7816 Oct, [facility] [id number] [place] [address] 56162- 3409 Oct, [facility] [address] [id number] [place] 7143 Oct, [facility] [address] [id number] [place] 9458 Sep, [facility] [address] [id number] [place] 7697 Sep, [facility] [address] [id number] 6905 Sep, Hip pain associated with recalled total hip arthroplasty hardware 996.77 [facility] [address] [id number] [place] [address]- 4169 Sep, [facility] [address] [id number], [place] [address]- 0107 Sep, [facility] [address] [facility] [id number][place] [address]- 7696 Sep, [facility] [address] [id number], [place] [address]- 6503 Aug, [facility] [address] [facility] [id number] [place] [address]- 6307 Jul, [facility] [address] [facility] [id number], [place] [address]- 8923 June, [facility] [address] [id number], [place] [address]- 0695 June, [facility] [address] [id number], [place] [address]- 2035 June, [facility] [address] [id number], [place] [address]- 2008 June, [facility] [address] [facility] [id number], [place] [address]- 9336 June, [facility] [address] [id number], [place] [address]- 8910 June, [facility] [place] [facility] [address] [id number] [place] [address]- 5262 30 May, 2014 [facility] [place] [facility] [address] [id number] [place] [address]- 3326 14 May, 2014 [facility] [place] [facility] [address] [id number] [place] [address]- 1939 May, [facility] [place] [facility] [address] [id number] [place] [address]- 0850 30 Apr, 2014 [facility] [place] [facility] [address] [id number] [place] [address]- 7185 30 Apr, 2014 [facility] [place] [facility] [address] [id number] [place] [address]- 7952 Apr, [facility] [place] [facility] [address] [id number] [place] [address]- 3529 Apr, [facility] [place] [facility] [address] [id number] [place] [address]- 3873 Apr, [facility] [place] [facility] [address] [id number] [place] [address]- 7933 Apr, [facility] [place] [facility] [address] [id number] [place] [address]- 1683 Apr, [facility] [place] [facility] [address] [id number] [place] [address]- 1079 Apr, [facility] [place] [facility] [address] [id number] [place] [address]- 6129 Apr, [facility] [place] [facility] [address] [id number] [place] [address]- 4438 Apr, [facility] [place] [facility] [address] [id number] [place] [address]- 7796 Apr, [facility] [place] [facility] [address] [id number] [place] [address]- 6786 Mar, [facility] [place] [facility] [address] [id number] [place] [address]- 4493 Mar, 2014 [facility] [place] [facility] [address] [id number] [place] [address]- 3405 16 Mar, 2014 [facility] [place] [facility] [address] [id number] [place] 2636 16 Mar, 2014 [facility] [place] [facility] [address] [id number] [place] [address]- 1496 Mar, [facility] [place] [facility] [address] [id number] [place] [address]- 0752 Mar, [facility] [place] [facility] [address] [id number] [place] [address]- 6704 Feb, [facility] [place] [facility] [address] [id number] [place] [address]- 7818 Feb, [facility] [place] [facility] [address] [id number] [place] [address]- 1107 Feb, [facility] [place] [facility] [address] [id number] [place] [address]- 1122 Feb, [facility] [place] [facility] [address] [id number] [place] [address]- 5327 Jan, [facility] [place] [facility] [address] [facility] [id number] [place] [address]- 9051 Jan, [facility] [place] [facility] [address] [id number] [place] [address]- 0298 Jan, [facility] [place] [facility] [address] [id number] [place] [address]- 4210 Jan, [facility] [place] [facility] [address] [id number] [place] [address]- 0441 Dec, [facility] [place] [facility] [address] [id number] [place] [address]- 6032 Dec, [facility] [place] [facility] [address] [id number] [place] [address]- 1694 Dec, [facility] [place] [facility] [address] [id number] [place] [address]- 2185 Dec, [facility] [place] [facility] [address] [id number] [place] [address]- 1636 Dec, [facility] [place] [facility] [address] [id number] [place] [address]- 3680 Dec, [facility] [place] [facility] [address] [id number] [place] [address]- 6475 Dec, [facility] [place] [facility] [address] [id number] [place] [address]- 6658 Dec, [facility] [place] [facility] [address] [id number] [place] [address]- 0736 Dec, [facility] [place] [facility] [address] [id number] [place] [address]- 9411 Dec, [facility] [place] [facility] [address] [id number] [place] [address]- 6928 Dec, [facility] [place] [facility] [address] [id number] [place] [address]- 2410 Nov, [facility] [place] [facility] [address] [id number] [place] [address]- 8616 Nov, [facility] [place] [facility] [address] [id number] [place] [address]- 9489 Nov, [facility] [place] [facility] [address] [id number] [place] [address]- 1829 Nov, [facility] [place] [facility] [address] [id number] [place] [address]- 0233 Nov, [facility] [place] [facility] [address] [id number] [place] [address]- 9516 15 Nov, 2013 [facility] [place] [facility] [address] [id number] [place] [address]- 1601 15 Nov, 2013 [facility] [place] [facility] [address] [id number] [place] [address]- 8048 15 Nov, 2013 [facility] [place] [facility] [address] [id number] [place] [address]- 6316 15 Nov, 2013 [facility] [place] [facility] [address] [id number] [place] [address]- 8811 14 Nov, 2013 [facility] [place] [facility] [address] [id number] [place] [address]- 1713 14 Nov, 2013 [facility] [place] [facility] [address] [id number] [place] [address]- 3536 14 Nov, 2013 [facility] [place] [facility] [address] [id number] [place] [address]- 8561 14 Nov, 2013 [facility] [place] [facility] [address] [id number] [place] [address]- 0518 13 Nov, 2013 [facility] [place] [facility] [address] [id number] [place] [address]- 6920 13 Nov, 2013 [facility] [place] [facility] [address] [id number] [place] [address]- 8923 11 Nov, 2013 [facility] [place] [facility] [address] [id number] [place] [address]- 2418 11 Nov, 2013 [facility] [place] [facility] [address] [id number] [place] [address]- 0021 07 Nov, 2013 [facility] [place] [facility] [address] [id number], [place] [address]- 3622 07 Nov, 2013 [facility] [place] [facility] [address] [id number], [place] [address]- 8411 07 Nov, 2013 [facility] [place] [facility] [address] [id number] [place] [address]- 6815 07 Nov, 2013 [facility] [place] [facility] [address] [id number], [place] [address]- 1902 30 Oct, 2013 [facility] [place] [facility] [address] [id number] [place] [address]- 7526 30 Oct, 2013 [facility] [place] [facility] [address] [id number] [place] [address]- 7258 26 Oct, 2013 [facility] [place] [facility] [address] [id number] [place] [address]- 5413 26 Oct, 2013 [facility] [place] [facility] [address] [id number] [place] [address]- 2939 22 Oct, 2013 [facility] [place] [facility] [address] [id number] [place] [address]- 3635 22 Oct, 2013 [facility] [place] [facility] [address] [id number] [place] [address]- 2162 18 Oct, 2013 [facility] [place] [facility] [address] [id number] [place] [address]- 1011 18 Oct, 2013 [facility] [place] [facility] [address] [id number] [place] [address]- 2052 18 Oct, 2013 [facility] [place] [facility] [address] [id number] [place] [address]- 5380 18 Oct, 2013 [facility] [place] [facility] [address] [id number] [place] [address]- 0528 12 Oct, 2013 [facility] [place] [facility] [address] [id number] [place] [address]- 8036 Oct, 2013 [facility] [place] [facility] [address] [id number] [place] [address]- 6106 Oct, 2013 [facility] [place] [facility] [address] [id number] [place] [address]- 2548 Oct, 2013 [facility] [place] [facility] [address] [id number] [place] [address]- 9957 Sep, [facility] [place] [facility] [address] [id number] [place] [address]- 8420 Sep, [facility] [place] [facility] [address] [id number] [place] [address]- 5177 Sep, [facility] [place] [facility] [address] [id number] [place] [address]- 4824 Sep, [facility] [place] [facility] [address] [id number] [place] [address]- 7520 Sep, [facility] [place] [facility] [address] [id number] [place] [address]- 5743 Sep, [facility] [place] [facility] [address] [id number] [place] [address]- 0491 Sep, [facility] [place] [facility] [address] [id number] [place] [address]- 0341 Sep, [facility] [place] [facility] [address] [id number] [place] [address]- 0506 Sep, [facility] [place] [facility] [address] [id number] [place] [address]- 1941 Sep, [facility] [place] [facility] [address] [id number] [place] [address]- 9192 Sep, [facility] [place] [facility] [address] [id number] [place] [address]- 2736 Sep, [facility] [place] [facility] [address] [id number] [place] [address]- 5129 Sep, [facility] [place] [facility] [address] [id number] [place] [address]- 8883 Sep, [facility] [place] [facility] [address] [id number] [place] [address]- 2624 Sep, [facility] [place] [facility] [address] [id number] [place] [address]- 8361 Sep, [facility] [place] [facility] [address] [id number] [place] [address]- 8057 Sep, [facility] [place] [facility] [address] [id number] [place] [address]- 2822 Sep, [facility] [place] [facility] [address] [id number] [place] [address]- 7159 Aug, [facility] [place] [facility] [address] [id number] [place] [address]- 1242 Aug, [facility] [place] [facility] [address] [id number] [place] [address]- 2428 Aug, [facility] [place] [facility] [address] [id number] [place] [address]- 6866 Aug, [facility] [place] [facility] [address] [id number] [place] [address]- 5646 Aug, [facility] [place] [facility] [address] [id number] [place] [address]- 4748 Aug, [facility] [place] [facility] [address] [id number] [place] [address]- 8929 Jul, [facility] [place] [facility] [address] [id number] [place] [address]- 8663 Jul, [facility] [place] [facility] [address] [id number] [place] [address]- 3450 Jul, [facility] [place] [facility] [address] [id number] [place] [address]- 3440 Jul, [facility] [place] [facility] [address] [id number] [place] [address]- 3987 June, [facility] [place] [facility] [address] [id number] [place] [address]- 7554 June, [facility] [place] [facility] [address] [id number] [place] [address]- 1633 June, [facility] [place] [facility] [address] [id number] [place] [address]- 1198 June, [facility] [place] [facility] [address] [id number] [place] [address]- 7427 June, [facility] [place] [facility] [address] [id number] [place] [address]- 1013 June, [facility] [place] [facility] [address] [id number] [place] [address]- 7868 June, [facility] [place] [facility] [address] [id number] [place] [address]- 2239 29 May, 2013 [facility] [place] [facility] [address] [id number] [place] [address]- 7526 29 May, 2013 [facility] [place] [facility] [address] [id number] [place] [address]- 8166 May, [facility] [place] [facility] [address] [id number] [place] [address]- 3087 May, [facility] [place] [facility] [address] [id number] [place] [address]- 9698 May, [facility] [place] [facility] [address] [id number] [place] [address]- 9484 May, [facility] [place] [facility] [address] [id number] [place] [address]- 3846 31 Apr, 2013 [facility] [place] [facility] [address] [id number] [place] [address]- 5483 31 Apr, 2013 [facility] [place] [facility] [address] [id number] [place] [address]- 1904 28 Apr, 2013 [facility] [place] [facility] [address] [id number] [place] [address] 89[address] 28 Apr, 2013 [facility] [place] [facility] [address] [id number] [place] [address] 1372 14 Apr, 2013 [facility] [place] [facility] [address] [id number] [place] [address] 7833 14 Apr, 2013 [facility] [place] [facility] [address] [id number] [place] [address] 12 Apr, 2013 [facility] [place] [facility] [address] [id number] [place] [address] 12 Apr, 2013 [facility] [place] [facility] [address] [id number] [place] [address]88 10 Apr, 2013 [facility] [place] [facility] [address] [id number] [place] [address] 2664 Apr, [facility] [place] [facility] [address] [id number] [place] [address] Apr, [facility] [place] [facility] [address] [id number] [place] [address] Apr, [facility] [place] [facility] [address] [id number] [place] [address] Apr, [facility] [place] [facility] [address] [id number] [place] [address]90 Apr, [facility] [place] [facility] [address] [id number] [place] [address] Mar, [facility] [place] [facility] [address] [id number] [place] [address]288 Mar, [facility] [place] [facility] [address] [id number] [place] [address] Mar, [facility] [place] [facility] [address] [id number] [place] [address]300 Feb, [facility] [place] [facility] [address] [id number] [place] [address] Feb, [facility] [place] [facility] [address] [id number] [place] [address] Feb, [facility] [place] [facility] [address] [id number] [place] [address] 3984 Feb, [facility] [place] [facility] [address] [id number] [place] [address] 0658 Feb, [facility] [place] [facility] [address] [id number] [place] [address] 8648 Feb, [facility] [place] [facility] [address] [id number] [place] [address] 4[address] Feb, [facility] [place] [facility] [address] [id number] [place] [address] 1136 Feb, [facility] [place] [facility] [address] [id number] [place] [address] 20[address] Feb, [facility] [address] [id number] [place] [address] Feb, [facility] [address] [id number] [place] [address] 8036 Jan, [facility] [address] [id number] [place] [address]162 Jan, [facility] [address] [id number] [place] [address] 9383 Jan, [facility] [address] [id number] [place] [address]- 4[address] Jan, [facility] [address] [id number] [place] [address] 1335 Jan, [facility] [address] [id number] [place] [address] 117[address] Jan, [facility] [address] [id number] [place] [address] 5[address] Jan, [facility] [address] [id number] [place] [address]- 6194 Jan, [facility] [address] [id number] [place] [address] 8901 Jan, [facility] [address] [id number] [place] [address]- 2540 19 Jan, 2013 [facility] [address] [id number] [place] [address] 4068 17 Jan, 2013 [facility] [address] [id number] [place] [address]- 5408 17 Jan, 2013 [facility] [address] [id number] [place] [address]- 7446 16 Jan, 2013 [facility] [address] [id number] [place] [address]- 7271 Jan, [facility] [address] [id number] [place] [address]- 1103 Jan, [facility] [place] [facility] [address] [id number] [place] [address]- 6796 Jan, [facility] [place] [facility] [address] [id number] [place] [address]- 3739 Jan, [facility] [place] [facility] [address] [id number] [place] [address]- 1672 Jan, [facility] [place] [facility] [address] [id number] [place] [address]- 8105 Jan, [facility] [place] [facility] [address] [id number] [place] [address]- 2259 Jan, [facility] [place] [facility] [address] [id number] [place] [address]- 66[address] Jan, [facility] [place] [facility] [address] [id number], [place] [address]- [address] Dec, [facility] [place] [facility] [address] [id number] [place] [address]- 2657 Dec, [facility] [place] [facility] [address] [id number], [place] [address]- [address] Dec, [facility] [place] [facility] [address] [id number], [place] [address]- [address] Dec, [facility] [place] [facility] [address] [id number], [place] [address] Dec, [facility] [place] [facility] [address] [id number], [place] [address]- [address] Dec, [facility] [place] [facility] [address] [id number], [place] [address]- [address]283 Dec, [facility] [place] [facility] [address] [id number], [place] [address]157 Dec, [facility] [place] [facility] [address] [id number], [place] [address] Dec, [facility] [place] [facility] [address] [id number] [place] [address]- 6118 Dec, [facility] [place] [facility] [address] [id number] [place] [address]- 8347 Nov, [facility] [place] [facility] [address] [id number] [place] [address]- 9367 Nov, [facility] [place] [facility] [address] [id number] [place] [address]- 9391 Nov, [facility] [place] [facility] [address] [id number] [place] [address]- 3899 Nov, [facility] [place] [facility] [address] [address] [id number] [place] [address] Nov, [facility] [place] [facility] [address] [id number] [place] [address] 4681 Nov, [facility] [place] [facility] [address] [id number] [place] [address] 2140 Nov, [facility] [place] [facility] [address] [id number] [place] [address] 6947 Nov, [facility] [place] [facility] [address] [facility] [id number][place] [address] Nov, [facility] [place] [facility] [address] [id number], [place] [address] Nov, [facility] [place] [facility] [address] [id number], [place] [address] Oct, [facility] [place] [facility] [address] [id number] [place] [address] 5083 Oct, [facility] [place] [facility] [address] [id number] [place] [address] 6395 Oct, [facility] [place] [facility] [address] [facility] [id number] [place] [address] 3860 25 Oct, 2012 [facility] [place] [facility] [address] [id number] [place] [address] 2546 Oct, [facility] [place] [facility] [address] [id number] [place] [address] 3300 Sep, [facility] [place] [facility] [address] [id number] [place] [address] Sep, [facility] [place] [facility] [address] [id number] [place] [address] 4393 Aug, [facility] [place] [facility] [address] [id number] [place] [address] 9291 Aug, [facility] [place] [facility] [address] [id number] [place] [address]- 8399 Aug, [facility] [place] [facility] [address] [id number] [place] [address] 9369 Aug, [facility] [place] [facility] [address] [id number] [place] [address]- 7375 Aug, [facility] [place] [facility] [address] [id number] [place] [address]- 4[address] Aug, [facility] [place] [facility] [address] [id number] [place] [address]- 7253 Aug, [facility] [place] [facility] [address] [id number] [place] [address]- 8207 Jul, [facility] [place] [facility] [address] [id number] [place] [address]- 7832 Jul, [facility] [place] [facility] [address] [id number] [place] [address]- 54[address] June, [facility] [place] [facility] [address] [id number] [place] [address]- 6551 June, [facility] [place] [facility] [address] [id number] [place] [address]- 3226 June, [facility] [place] [facility] [address] [id number] [place] [address]- 6972 June, [facility] [address] [id number] [place] [address]- 1728 June, [facility] [place] [facility] [address] [id number] [place] [address]- 5754 June, [facility] [place] [facility] [address] [id number] [place] [address] June, [facility] [place] [facility] [address] [id number] [place] [address]- 1960 June, [facility] [place] [facility] [address] [id number] [place] [address]- 9202 June, [facility] [place] [facility] [address] [id number] [place] [address]- 9718 June, [facility] [place] [facility] [address] [id number] [place] [address]- 8513 June, [facility] [place] [facility] [address] [id number] [place] [address]- 0908 May, [facility] [place] [facility] [address] [id number] [place] [address]- 8955 May, [facility] [place] [facility] [address] [id number] [place] [address]- 0991 May, [facility] [place] [facility] [address] [id number] [place] [address]- 2854 May, [facility] [place] [facility] [address] [id number], [place] [address]- 7137 Apr, [facility] [place] [facility] [address] [id number] [place] [address]- 6252 Apr, [facility] [place] [facility] [address] [id number] [place] [address]- 9270 Apr, [facility] [place] [facility] [address] [id number] [place] [address]- 4151 Mar, [facility] [place] [facility] [address] [id number] [place] [address]- 4013 11 Mar, 2012 [facility] [address] [id number] [place] [address]- 9128 Feb, [facility] [place] [facility] [address] [id number] [place] [address]- 7267 Feb, [facility] [address] [id number] [place] [address]- 3446 Feb, [facility] [place] [facility] [address] [id number] [place] [address]- 1889 Feb, [facility] [address] [id number] [place] [address]- 7584 16 Feb, 2012 [facility] [address] [id number] [place] [address]- 0000 Feb, [facility] [address] [id number] [place] [address]- 9066 Feb, [facility] [address] [id number] [place] [address]- 7667 Jan, [facility] [address] [id number] [place] [address]- 9209 31 Jan, 2012 [facility] [address] [id number] [place] [address]- 8077 28 Jan, 2012 [facility] [address] [id number] [place] [address]- 4326 17 Jan, 2012 [facility] [address] [id number] [place] [address] 17 Jan, 2012 [facility] [place] [facility] [address] [id number] [place] [address]- 0139 Jan, [facility] [address] [id number] [place] [address]- 2545 Jan, [facility] [address] [id number] [place] [address]- 2043 Jan, [facility] [place] [facility] [address] [id number] [place] [address]- 6503 Jan, [facility] [place] [facility] [address] [id number] [place] [address] Jan, [facility] [place] [facility] [address] [id number] [place] [address]- 7294 Jan, [facility] [place] [facility] [address] [id number] [place] [address]- 5387 Dec, [facility] [place] [facility] [address] [id number] [place] [address]- 5212 Dec, [facility] [place] [facility] [address] [id number] [place] [address]- 2433 Dec, [facility] [place] [facility] [address] [id number] [place] [address]- 4587 Dec, [facility] [place] [facility] [address] [id number] [place] [address]- 1130 Nov, [facility] [place] [facility] [address] [id number] [place] [address]- 3615 Nov, [facility] [place] [facility] [address] [id number] [place] [address]- 6769 Nov, [facility] [place] [facility] [address] [id number] [place] [address]- 1403 27 Oct, 2011 [facility] [place] [facility] [address] [id number] [place] [address]- 7383 24 Sep2011 [facility] [place] [facility] [address] [id number] [place] [address]- 4737 21 Oct, 2011 [facility] [place] [facility] [address] [id number] [place] [address]- 3779 10 Oct, 2011 [facility] [place] [facility] [address] [id number] [place] [address] 07 Oct, 2011 [facility] [place] [facility] [address] [id number] [place] [address]- 2166 Oct, [facility] [place] [facility] [address] [id number] [place] [address]- 3735 Oct, [facility] [place] [facility] [address] [id number] [place] [address]- 7484 Sep, [facility] [place] [facility] [address] [id number] [place] [address]- 1926 Sep, [facility] [place] [facility] [address] [id number] [place] [address]- 3136 Sep, [facility] [place] [facility] [address] [id number] [place] [address]- 4180 Sep, [facility] [place] [facility] [address] [id number] [place] [address]- 1370 Sep, [facility] [place] [facility] [address] [id number] [place] [address]- 5153 Aug, [facility] [place] [facility] [address] [id number] [place] [address]- 2644 Aug, [facility] [place] [facility] [address] [id number] [place] [address]- 3041 Aug, [facility] [place] [facility] [address] [id number] [place] [address]- 8841 Aug, [facility] [place] [facility] [address] [id number] [place] [address]- 6484 Aug, [facility] [place] [facility] [address] [id number] [place] [address]- 2399 Aug, [facility] [place] [facility] [address] [id number] [place] [address]- 8377 Aug, [facility] [place] [facility] [address] [id number] [place] [address]- 4616 Jul, [facility] [place] [facility] [address] [id number] [place] [address]- 0834 Jul, [facility] [place] [facility] [address] [id number] [place] [address]- 4123 22 Jul, 2011 [facility] [address] [id number] [place] [address]- 8959 Jul, [facility] [place] [facility] [address] [id number] [place] [address]- 5176 Jul, [facility] [place] [facility] [address] [id number] [place] [address]- 7954 Jul, [facility] [place] [facility] [address] [id number] [place] [address]- 3182 07 Jul, 2011 [facility] [place] [facility] [address] [id number] [place] [address]- 5138 Jul, [facility] [address] [id number] [place] [address]- 2408 Jul, [facility] [address] [id number] [place] [address]- 8625 June, [facility] [address] [id number] [place] [address]- 3826 June, [facility] [address] [id number] [place] [address]- 6313 June, [facility] [address] [id number] [place] [address]- 0246 June, [facility] [place] [facility] [address] [id number] [place] [address]- 9937 June, [facility] [address] [id number] [place] [address]- 4267 June, [facility] [place] [facility] [address] [id number] [place] [address]- 2354 June, [facility] [place] [facility] [address] [id number] [place] [address]- 7986 June, [facility] [place] [facility] [address] [id number] [place] [address]- 5940 May, [facility] [place] [facility] [address] [id number] [place] [address]- 9449 May, [facility] [place] [facility] [address] [id number] [place] [address]- 6408 May, [facility] [place] [facility] [address] [id number] [place] [address]- 7118 May, [facility] [place] [facility] [address] [id number] [place] [address]- 9088 May, [facility] [place] [facility] [address] [id number] [place] [address]- 0146 May, [facility] [place] [facility] [address] [id number] [place] [address]- 2849 May, [facility] [place] [facility] [address] [id number] [place] [address]- 3456 Apr, [facility] [place] [facility] [address] [id number] [place] [address]- 0548 Apr, [facility] [place] [facility] [address] [id number] [place] [address]- 8614 Apr, [facility] [place] [facility] [address] [id number] [place] [address]- 9388 Apr, [facility] [place] [facility] [address] [id number] [place] [address]- 7441 Apr, [facility] [place] [facility] [address] [id number] [place] [address]- 0223 Apr, [facility] [place] [facility] [address] [id number] [place] [address]- 7187 Apr, [facility] [place] [facility] [address] [id number] [place] [address]- 7520 Mar, [facility] [place] [facility] [address] [id number] [place] [address]- 1519 Mar, [facility] [place] [facility] [address] [id number] [place] [address]- 3038 14 Mar, 2011 [facility] [address] [id number] [place] [address]- 1296 13 Mar, 2011 [facility] [address] [id number] [place] [address] 2546 09 Mar, 2011 [facility] [address] [id number] [place] [address]- 5916 Mar, [facility] [address] [id number] [place] [address] 2542 Mar, [facility] [address] [id number] [place] [address]- 4885 Feb, [facility] [address] [id number] [place] [address]- 0537 Feb, [facility] [address] [id number] [place] [address]- 9202 Feb, [facility] [address] [id number] [place] [address]- 1906 Feb, [facility] [address] [id number] [place] [address]- 5745 Feb, [facility] [address] [facility] [id number] [place] [address]- 4291 Feb, [facility] [address] [id number] [place] [address]- 5727 Feb, [facility] [address] [id number] [place] [address]- 5961 Feb, [facility] [address] [id number] [place] [address]- 2549 Feb, [facility] [address] [id number] [place] [address]- 7096 Feb, [facility] [address] [id number] [place]661 Jan, [facility] [place] [facility] [address] [id number] [place] [address]- 5135 Jan, [facility] [place] [facility] [address] [id number] [place] [address]- 1716 Jan, [facility] [place] [facility] [address] [id number] [place] [address]- 8859 Jan, [facility] [place] [facility] [address] [id number] [place] [address]- 8604 Jan, [facility] [place] [facility] [address] [id number] [place] [address]- 7838 Jan, [facility] [place] [facility] [address] [id number] [place] [address]- 8321 Jan, [facility] [place] [facility] [address] [id number] [place] [address]- 4773 Jan, [facility] [place] [facility] [address] [id number] [place] [address]- 6374 Jan, [facility] [place] [facility] [address] [id number] [place] [address]- 7958 Jan, [facility] [place] [facility] [address] [id number] [place] [address]- 0969 Jan, [facility] [place] [facility] [address] [id number], [place] [address]- 7244 17 Dec, 2010 [facility] [place] [facility] [address] [id number], [place] [address]- 8632 17 Dec, 2010 [facility] [place] [facility] [address] [id number] [place] [address]- 4646 17 Dec, 2010 [facility] [place] [facility] [address] [id number] [place] [address]- 7320 16 Dec, 2010 [facility] [place] [facility] [address] [id number], [place] [address]- 6861 14 Dec, 2010 [facility] [place] [facility] [address] [id number], [place] [address]- 3039 Dec, [facility] [place] [facility] [address] [id number] [place] [address]- 2218 Dec, [facility] [place] [facility] [address] [id number] [place] [address]- 2707 Dec, [facility] [place] [facility] [address] [facility] [id number] [place] [address]- 0478 Dec, [facility] [place] [facility] [address] [id number] [place] [address]- 2996 Nov, [facility] [place] [facility] [address] [id number] [place] [address], [place] [address]- 8675 Nov, [facility] [place] [facility] [address] [id number] [place] [address]- 0033 Nov, [facility] [place] [facility] [address] [facility] [id number] [place] [address]- 3153 Nov, [facility] [place] [facility] [address] [id number] [place] [address]- 3709 24 Nov, 2010 [facility] [place] [facility] [address] [facility] [id number] [place] [address]- 8350 Nov, [facility] [place] [facility] [address] [facility] [id number] [place] [address]- 2813 Aug, [facility] [place] [facility] [address] [id number], [place] [address]- 7024 14 Feb, 2010 [facility] [place] [facility] [address] [id number], [place] [address]- 5747 14 Jan, 2010 [facility] [place] [facility] [address] [id number] [place] [address]- 7033 Jan, [facility] [place] [facility] [address] [facility] [id number] [place] [address]- 0618 Jan, [facility] [place] [facility] [address] [facility] [id number] [place] 7492 Jan, [facility] [place] [facility] [address] [id number], [place] [address]- 2546 Jan, [facility] [id number], [place] [address]- 8156 Dec, [facility] [id number], [place] [address]- 2546 Dec, [facility] [id number], [place] [address]- 2546 Dec, [facility] [id number], [place] [address]- 2546 Dec, [facility] [id number], [place] [address]- 6806 Nov, [facility] [id number], [place] [address]- 6418 Nov, [facility] [id number], [place] [address]- 8316 Nov, IMMUNIZATIONS No Known Immunizations SOCIAL HISTORY Never Assessed REASON FOR VISIT Clonopin (5 day supply) 05/01 PLAN OF CARE VITAL SIGNS MEDICATIONS Medication Instructions Dosage Frequency Start Date End Date Duration Status Klonopin 1 MG Orally 3 times a day 1 tablet 8h 05 days Active RESULTS No Results PROCEDURES No [...]
--- OUTSIDE RECORDS SUMMARY | 2018-01-13 21:07 | XMS REPORT ---
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 Active 132991942 Problem Hypertension I10 Active 38920194 Problem Arthritis M19.90 Active 5920815 Problem 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 Active 74442222 Problem Anxiety F41.9 Active 90973663 Problem Unspecified episodic mood disorder F39 Active 42088832 Problem Left hip pain M25.552 Active 18633881 ALLERGIES No Information ENCOUNTERS Encounter Location Date Diagnosis [facility] [address] [id number] [id number] Aug, [facility] [address] [facility]NOTE 3] [id number], [place] [address] Aug, Arthritis M19.90 [facility] [address] [facility]NOTE 3] [id number], [place] [address] Aug, [facility] [address] [address] Aug, Obesity (BMI 30.0-34.9) E66.9 ; Unspecified episodic mood disorder F39 and Hypertension I10 [facility] [address] [id number] [address] Aug, Unspecified episodic mood disorder F39 [facility] [id number] [place] [address] 31438- 0520 Aug, [facility] [id number] [place] [address] 06934- 7028 Jul, Unspecified episodic mood disorder F39 [facility] [id number] [place] [address] 17762- 0109 Jul, [facility] [id number] [place] [address] 77080- 4011 Jul, Arthritis M19.90 [facility] [id number] [place] [address] 70986- 6785 Jul, Left hip pain M25.552 ; Hypertension I10 ; Other obesity due to excess calories E66.09 and Body mass index (BMI) of 34.0-34.9 in adult Z68.34 [facility] [id number] [place] [address] 44956- 0710 Jul, Unspecified episodic mood disorder F39 [facility] [id number] [place] [address] 95417- 6672 June, Gastroesophageal reflux disease, esophagitis presence not specified K21.9 [facility] [id number] [place] [address] 93943- 4877 June, [facility] [id number] [place] [address] 09017- 9583 June, [facility] [id number] [place] [address] 70621- 5494 June, Arthritis M19.90 [facility] [address], [place] [address] June, [facility] [address] [address] June, [facility] [address], [place] [address] June, Unspecified episodic mood disorder F39 [facility] [id number] [place] [address] 05507- 4889 May, Unspecified episodic mood disorder F39 [facility] [id number] [place] [address] 21299- 8500 May, [facility] [id number] [place] [address] 31301- 4183 May, Arthritis M19.90 [facility] [id number] [place] [address] 24097 -6337 May, Dysuria R30.0 ; Abscess L02.91 and Acute cystitis without hematuria N30.00 [facility] [id number] [place] [address] 90995- 6358 May, Other disorder of impulse control F63.89 ; Unspecified episodic mood disorder F39 ; Combined drug dependence excluding opioids, 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 ; Anxiety F41.9 and Other psychoactive substance dependence, 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 [facility] [address], [place] [address] May, [facility] [id number] [place] [address] 28544- 7139 May, Other disorder of impulse control F63.89 ; Unspecified episodic mood disorder F39 ; Combined drug dependence excluding opioids, 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 ; Other psychoactive substance dependence, 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 and Anxiety F41.9 [facility] [address], [place] [address] May, Other chronic pain G89.29 ; Left hip pain M25.552 ; Hypertension I10 ; 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, 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 and Unspecified episodic mood disorder F39 [facility] [id number] [place] [address] 82121- 2506 28 Apr, 2017 [facility] [id number] [place] [address] 28596 -3902 Apr, Neck pain M54.2 ; Left hip pain M25.552 and Fall, initial encounter W19.XXXA [facility] [id number] [place] [address] 41309- 3560 Apr, Unspecified episodic mood disorder F39 ; Combined drug dependence excluding opioids, 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 ; Anxiety F41.9 ; Other psychoactive substance dependence, 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 and Other disorder of impulse control F63.89 [facility] [id number] [place] [address] 70101- 6773 Apr, [facility] [id number] [place] [address] 94984- 9249 Apr, Arthritis M19.90 and Unspecified episodic mood disorder F39 [facility] [id number] [place] [address] 41977- 1101 Apr, Unspecified episodic mood disorder F39 [facility] [address], [place] [address] 5913 Apr, [facility] [id number] [place] [address] 92767- 2887 08 Apr, 2017 [facility] [id number] [place] [address] 42415- 7357 07 Apr, 2017 Unspecified episodic mood disorder F39 ; Combined drug dependence excluding opioids, 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 ; Anxiety F41.9 ; Other psychoactive substance dependence, 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 and Other disorder of impulse control F63.89 [facility] [id number] [place] [address] 99873- 9291 Mar, Unspecified episodic mood disorder F39 [facility] [address], [place] [address] 7686 Mar, Gastroesophageal reflux disease, esophagitis presence not specified K21.9 [facility] [id number] [place] [address] 47401 2546 Mar, Arthritis M19.90 and Unspecified episodic mood disorder F39 [facility] [id number] [place] [address] 51700 2546 Feb, [facility] [id number] [place] [address] 40987 2546 Feb, [facility] [id number] [place] [address] 30953- 1306 Feb, [facility] [id number] [place] [address] 65205- 2056 Feb, Arthritis M19.90 [facility] [id number] [place] [address] 97467 2543 Feb, Non-pressure chronic ulcer of right calf, 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 ; Unspecified episodic mood disorder F39 and Left hip pain M25.552 [facility] [id number] [place] [address] 21667 2546 Feb, [facility] [id number] [place] [address] 76473 2546 Feb, [facility] [id number] [place] [address] 01883 2546 Jan, Arthritis M19.90 [facility] [id number] [place] [address] 70624 2546 Jan, Left hip pain M25.552 and Non-pressure chronic ulcer of right calf, 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 [facility] [address], [place] [address] 2546 Jan, Chronic hepatitis C without hepatic coma B18.2 [facility] [id number] [place] [address] 08827- 8016 Jan, Encounter for immunization Z23 ; Venous insufficiency ( chronic) (peripheral) I87.2 ; Non-pressure chronic ulcer of unspecified calf limited to breakdown of skin L97.201 and Gastroesophageal reflux disease, esophagitis presence not specified K21.9 [facility] [id number] [place] [address] 34392- 2996 Jan, [facility] [id number] [place] [address] 26531- 2549 Jan, Chronic hepatitis C without hepatic coma B18.2 and Encounter for immunization Z23 [facility] [address] 95358- 4406 Jan, Arthritis M19.90 [facility] [id number] [place] [address] 47597- 7316 Jan, [facility] [id number] [place] [address] 37639- 2439 Dec, [facility] [id number] [place] [address] 58461- 8886 Dec, Unspecified episodic mood disorder F39 [facility] [id number] [place] [address] 32182 2546 Dec, Arthritis M19.90 [facility] [id number] [place] [address] 45513 2546 Dec, Arthritis M19.90 [facility] [id number] [place] [address] 50040- 2547 Nov, [facility] [address] 48880- 2546 Nov, [facility] [id number] [place] [address] 86481- 2546 Nov, Other psychoactive substance dependence, 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 ; 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, 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 and Chronic hepatitis C without hepatic coma B18.2 [facility] [address] [place] [address] 23027- 9353 Nov, Arthritis M19.90 [facility] [id number] [place] [address] 37632 -4183 Oct, Partial thickness burn of abdomen, initial encounter T21.22XA [facility] [id number] [place] [address] 60260- 4171 Oct, [facility] [id number] [place] [address] 23716- 7244 Sep, Arthritis M19.90 [facility] [id number] [place] [address] 27336- 7482 Sep, [facility] [id number] [place] [address] 68920- 9697 Sep, [facility] [id number] [place] [address] 66531- 6335 Sep, Unspecified episodic mood disorder F39 ; Chronic hepatitis C without hepatic coma B18.2 and Left hip pain M25.552 [facility] [id number] [place] [address] 00778- 2276 Sep, Arthritis M19.90 and Left hip pain M25.552 [facility] [id number] [place] [address] 94968- 8262 Aug, [facility] [id number] [place] [address] 39364- 7510 Aug, [facility] [id number] [place] [address] 20708- 3415 Aug, Chronic hepatitis C without hepatic coma B18.2 [facility] [address], [place] [address]- 7597 Aug, [facility] [id number] [place] [address] 39517- 0418 Aug, Chronic hepatitis C without hepatic coma B18.2 [facility] [id number] [place] [address] 44033- 2210 Aug, 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, 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 [facility] [id number] [place] [address] 26241- 8711 Aug, [facility] [id number] [place] [address] 12454- 5758 Aug, Chronic hepatitis C without hepatic coma B18.2 and Hypertension I10 [facility] [id number] [place] [address] 20421- 7017 Jul, [facility] [id number] [place] [address] 55389- 2241 June, [facility] [id number] [place] [address] 09742- 4726 Apr, Fibromyalgia M79.7 ; Left hip pain M25.552 and Decubitus ulcer of sacral region, stage 1 L89.151 [facility] [id number] [place] [address] 86394- 7597 Apr, [facility] [id number] [place] [address] 40050- 7247 Apr, [facility] [id number] [place] [address] 20697- 4971 Feb, [facility] [id number] [place] [address] 77627- 4512 Dec, Anxiety F41.9 ; Combined drug dependence excluding opioids, 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 and Unspecified episodic mood disorder F39 [facility] [id number] [place] [address] 65819- 2197 Dec, [facility] [id number] [place] [address] 98867- 8551 Nov, [facility] [address] [place] [address]- 9403 Nov, [facility] [id number] [place] [address] 39027- 8464 Nov, Other disorder of impulse control F63.89 and Anxiety F41.9 [facility] [id number] [place] [address] 37566- 1075 21 Oct, 2015 [facility] [id number] [place] [address] 32598 -4442 14 Oct, 2015 Open wound of left thigh, initial encounter S71.102A [facility] [id number] [place] [address] 82410- 9160 Oct, [facility] [id number] [place] [address] 73826- 5911 Sep, Unspecified episodic mood disorder F39 ; Other disorder of impulse control 312.39 ; Combined drug dependence excluding opioids, 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 and Anxiety F41.9 [facility] [address] [place] [address] 39733- 3934 Sep, Other disorder of impulse control 312.39 ; Combined drug dependence excluding opioids, 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 ; Anxiety F41.9 and Unspecified episodic mood disorder F39 [facility] [address] [place] [address] 33367- 9719 Sep, Other chronic pain G89.29 [facility] [id number] [place] [address] 15836- 7272 Sep, [facility] [id number] [place] [address] 25041- 5729 Sep, [facility] [id number] [place] [address] 94430- 2200 Aug, [facility] [address] [place] [address] 46267- 4446 Aug, [facility] [id number] [place] [address] 05173- 0061 Aug, [facility] [address] [place] [address] 55039- 6303 Jul, [facility] [id number] [place] [address] 96790- 4101 Jul, [facility] [id number] [place] [address] 86602- 9939 Jul, [facility] [id number] [place] [address] 32254- 3772 Jul, Arthritis M19.90 ; Chronic hepatitis C without hepatic coma B18.2 and Left hip pain M25.552 [facility] [id number] [place] [address] 38179- 4934 Jul, Left knee pain M25.562 [facility] [id number] [place] [address] 66040- 6848 Jul, Combined drug dependence excluding opioids, 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 ; Anxiety F41.9 ; Other disorder of impulse control 312.39 and Unspecified episodic mood disorder F39 [facility] [id number] [place] [address] 62867- 0599 Jul, Left knee pain M25.562 [facility] [address] [place] [address] 13128- 5548 Jul, Left knee pain M25.562 and Left hip pain M25.552 [facility] [address] [place] [address] 56488- 5037 Jul, [facility] [address] [place] [address] 12314- 1571 June, [facility] [id number] [place] [address] 77991- 4114 June, Combinations of drug dependence excluding opioid type drug, unspecified abuse 304.80 ; Other disorder of impulse control 312.39 ; Unspecified episodic mood disorder F39 and Anxiety F41.9 [facility] [address], [place] [address]- 4950 June, Other fatigue R53.83 ; Headache R51 and Left knee pain M25.562 [facility] [address] [place] [address] 30811- 0956 June, Unspecified episodic mood disorder F39 ; Combinations of drug dependence excluding opioid type drug, unspecified abuse 304.80 ; Other disorder of impulse control 312.39 and Anxiety F41.9 [facility] [id number] [place] [address] 70245- 9957 June, Anxiety F41.9 [facility] [id number] [place] [address] 93106- 0046 June, Pain in left knee M25.562 [facility] [address] [place] [address] 17822- 0715 June, Anxiety F41.9 and Combinations of drug dependence excluding opioid type drug, unspecified abuse 304.80 [facility] [address] [place] [address] 88909- 6717 June, Unspecified episodic mood disorder 296.90 ; Combinations of drug dependence excluding opioid type drug, unspecified abuse 304.80 and Other disorder of impulse control 312.39 [facility] [address] [place] [address] 86665- 0370 June, Anxiety F41.9 and Unspecified episodic mood disorder 296.90 [facility] [address] [address]- 6504 May, Arthritis M19.90 [facility] [address] [place] [address]- 2012 May, Arthritis M19.90 [facility] [address] [place] [address] 73446- 3666 May, Anxiety F41.9 ; Combinations of drug dependence excluding opioid type drug, unspecified abuse 304.80 and Other disorder of impulse control 312.39 [facility] [address] [address]- 6768 18 May, 2015 Left knee pain M25.562 [facility] [address] [place] [address] 97537- 2926 14 May, 2015 Arthritis M19.90 [facility] [address] [address]- 3379 May, [facility] [id number] [place] [address] 05243- 9885 May, Anxiety F41.9 ; Unspecified episodic mood disorder 296.90 ; Combinations of drug dependence excluding opioid type drug, unspecified abuse 304.80 and Other disorder of impulse control 312.39 [place] [address] [place] [address] 01905- 0183 May, Left knee pain M25.562 [facility] [id number] [place] [address] 81916- 4734 May, Left knee pain M25.562 ; Combinations of drug dependence excluding opioid type drug, unspecified abuse 304.80 ; Other disorder of impulse control 312.39 ; Fibromyalgia M79.7 ; Hypertension I10 ; Unspecified episodic mood disorder 296.90 and Left hip pain M25.552 [facility] [address] [address]- 7621 May, Unspecified episodic mood disorder 296.90 ; Other disorder of impulse control 312.39 ; Combinations of drug dependence excluding opioid type drug, unspecified abuse 304.80 and Anxiety F41.9 [facility] [id number] [address]- 7456 May, Left knee pain M25.562 ; Combinations of drug dependence excluding opioid type drug, unspecified abuse 304.80 ; Other disorder of impulse control 312.39 ; Fibromyalgia M79.7 ; Hypertension I10 ; Unspecified episodic mood disorder 296.90 and Left hip pain M25.552 [facility] [address] [place] [address] 67816- 3204 May, Anxiety F41.9 ; Unspecified episodic mood disorder 296.90 ; Other disorder of impulse control 312.39 and Combinations of drug dependence excluding opioid type drug, unspecified abuse 304.80 [facility] [address] [place] [address] 18516- 5220 30 Apr, 2015 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 and 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, implants and grafts, initial encounter T84.82XA [facility] [id number] [place] [address] 80628- 1504 Apr, Anxiety F41.9 ; Unspecified episodic mood disorder 296.90 ; Combinations of drug dependence excluding opioid type drug, unspecified abuse 304.80 and Other disorder of impulse control 312.39 [facility] [id number] [place] [address] 27503- 3415 Apr, Arthritis M19.90 [facility] [id number] [place] [address] 10671- 3881 Apr, Anxiety F41.9 ; Unspecified episodic mood disorder 296.90 ; Combinations of drug dependence excluding opioid type drug, unspecified abuse 304.80 and Other disorder of impulse control 312.39 [facility] [id number] [place] [address] 20688- 8949 17 Apr, 2015 Arthritis M19.90 [facility] [id number] [place] [address] 04676- 9589 15 Apr, 2015 [facility] [id number] [place] [address] 89600- 0366 15 Apr, 2015 [facility] [id number] [place] [address] 98367- 8014 14 Apr, 2015 Unspecified episodic mood disorder 296.90 ; Combinations of drug dependence excluding opioid type drug, unspecified abuse 304.80 ; Other disorder of impulse control 312.39 and Anxiety F41.9 [facility] [id number] [place] [address]1961 -0591 11 Apr, 2015 Left knee pain M25.562 [facility] [address], [place] [address] 8709 Apr, [place] [id number] [place] [address] 84865- 5909 Mar, Unspecified episodic mood disorder 296.90 ; Anxiety F41.9 ; Other disorder of impulse control 312.39 and Combinations of drug dependence excluding opioid type drug, unspecified abuse 304.80 [facility] [id number] [place] [address] 77226- 9540 Mar, Hyperpigmentation L81.9 [facility] [id number] [place] [address] 58870- 4489 Mar, Arthritis M19.90 and Anxiety F41.9 [facility] [id number] [place] [address] 86574- 7122 Mar, Unspecified episodic mood disorder F39 ; Combined drug dependence excluding opioids, 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 ; Other disorder of impulse control F63.89 and Anxiety F41.9 [facility] [id number] [place] [address] 82823- 8780 12 Mar, 2015 Well woman exam Z01.419 ; Other fatigue R53.83 ; Hot flashes N95.1 ; Depression, unspecified depression type F32.9 and Body mass index (BMI) of 23.0-23.9 in adult Z68.23 [place] [id number] [place] [address] 59944- 2217 11 Mar, 2015 Unspecified episodic mood disorder 296.90 ; Other disorder of impulse control 312.39 and Anxiety F41.9 [facility] [id number] [place] [address] 86214- 7060 11 Mar, 2015 Well woman exam Z01.419 [...] of breast Z12.39 and Limited mobility Z74.09 [place] [address] [address]90- 5137 Mar, [place] [address] 84825- 8046 Mar, [address] [address]- 5837 Mar, [address] [address]120- 0652 Mar, Other specified complication of internal orthopedic prosthetic devices, implants and grafts, initial encounter T84.89XA ; Fibromyalgia M79.7 ; Hypertension I10 ; Anemia D64.9 ; Insomnia G47.00 ; Anxiety F41.9 ; Arthritis M19.90 and Migraine G43.[address] [address]267- 3755 Mar, [place] [address] 67244- 9113 Feb, [place] [address] 76639- 7178 Feb, Arthritis M19.90 and Anxiety F41.9 [facility] [address] 29017- 4372 Feb, [place] [address] 21150- 0969 Feb, [facility] [address] 60115- 2884 Feb, [address] [id number] [address] 7296 Feb, [facility] [id number] [place] [address] 79847- 1350 Feb, Anxiety F41.9 [facility] [id number] [place] [address] 72146- 9782 15 Feb, 2015 [facility] [id number] [place] [address] 16784- 5582 Feb, [facility] [id number] [place] [address] 80486- 2851 Feb, 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 and Fibromyalgia M79.7 [facility] [id number] [place] [address] 84480- 4280 Feb, [facility] [id number] [place] [address] 85640- 9058 Jan, [facility] [id number] [address] 0285 Jan, [facility] [id number] [place] [address] 63359- 8258 Jan, [facility] [address], [place] [address]- 2491 24 Jan, 2015 [facility] [id number] [place] [address] 64128- 9735 16 Jan, 2015 [facility] [address], [place] [address]- 7904 08 Jan, 2015 [facility] [id number] [place] [address] 12948- 8507 Jan, [facility] [address], [place] [address]- 3898 07 Jan, 2015 [facility] [address], [place] [address]- 1194 Dec, [facility] [address], [place] [address]- 8086 17 Dec, 2014 Left knee pain M25.562 [facility] [id number] [place] [address] 57875- 8527 Dec, Left knee pain M25.562 [facility] [id number] [place] [address] 18189- 3059 16 Dec, 2014 Fibromyalgia M79.7 ; Hypertension I10 and Arthritis M19.90 [facility] [id number] [place] [address] 88158- 8656 Dec, [facility] [id number] [place] [address] 27088- 7821 Dec, [facility] [id number] [place] [address] 01443- 0474 Dec, [facility] [id number] [place] [address] 91797- 4818 Dec, [facility] [id number] [place] [address] 95127- 5521 Nov, [facility] [id number] [place] [address] 46512- 7221 Nov, [facility] [id number] [place] [address] 07032- 9051 Nov, [facility] [id number] [place] [address] 15164- 9671 Nov, Hypertension I10 [facility] [address], [place] [address]- 0317 23 Oct, 2014 [facility] [id number] [place] [address] 12840- 9095 17 Oct, 2014 [facility] [address], [place] [address]- 7899 Oct, [facility] [id number] [place] [address] 81755- 7702 Oct, [facility] [address] [id number] [place] 1153 Oct, [facility] [address] [id number] [place] 6234 Sep, [facility] [address] [id number] [place] 0324 Sep, [facility] [address] [id number] 7946 Sep, Hip pain associated with recalled total hip arthroplasty hardware 996.77 [facility] [address] [id number] [place] [address]- 6658 Sep, [facility] [address] [id number], [place] [address]- 0083 Sep, [facility] [address] [facility]NOTE [facility] [id number], [place] [address]- 9390 Sep, [facility] [address] [id number], [place] [address]- 8859 Aug, [facility] [address] [facility]NOTE [facility]] [id number] [place] [address]- 0399 Jul, [facility] [address] [facility]NOTE 3] [id number], [place] [address]- 4878 June, [facility] [address] [id number], [place] [address]- 8973 June, [facility] [address] [id number], [place] [address]- 8715 June, [facility] [address] [id number], [place] [address]- 7363 June, [facility] [address] [facility]NOTE 3] [id number], [place] [address]- 2956 June, [facility] [address] [id number], [place] [address]- 0703 June, [facility] [place] [facility] [address] [id number] [place] [address]- 8021 30 May, 2014 [facility] [place] [facility] [address] [id number] [place] [address]- 3653 14 May, 2014 [facility] [place] [facility] [address] [id number] [place] [address]- 6319 May, [facility] [place] [facility] [address] [id number] [place] [address]- 6514 30 Apr, 2014 [facility] [place] [facility] [address] [id number] [place] [address]- 5309 30 Apr, 2014 [facility] [place] [facility] [address] [id number] [place] [address]- 7575 Apr, [facility] [place] [facility] [address] [id number] [place] [address]- 0523 Apr, [facility] [place] [facility] [address] [id number] [place] [address]- 8745 Apr, [facility] [place] [facility] [address] [id number] [place] [address]- 4645 Apr, [facility] [place] [facility] [address] [id number] [place] [address]- 4341 Apr, [facility] [place] [facility] [address] [id number] [place] [address]- 8628 Apr, [facility] [place] [facility] [address] [id number] [place] [address]- 5710 Apr, [facility] [place] [facility] [address] [id number] [place] [address]- 1925 Apr, [facility] [place] [facility] [address] [id number] [place] [address]- 7276 Apr, [facility] [place] [facility] [address] [id number] [place] [address]- 5276 Mar, [facility] [place] [facility] [address] [id number] [place] [address]- 4532 Mar, 2014 [facility] [place] [facility] [address] [id number] [place] [address]- 2487 16 Mar, 2014 [facility] [place] [facility] [address] [id number] [place] 9876 16 Mar, 2014 [facility] [place] [facility] [address] [id number] [place] [address]- 7916 Mar, [facility] [place] [facility] [address] [id number] [place] [address]- 7434 Mar, [facility] [place] [facility] [address] [id number] [place] [address]- 5187 Feb, [facility] [place] [facility] [address] [id number] [place] [address]- 4912 Feb, [facility] [place] [facility] [address] [id number] [place] [address]- 0301 Feb, [facility] [place] [facility] [address] [id number] [place] [address]- 8190 Feb, [facility] [place] [facility] [address] [id number] [place] [address]- 7122 Jan, [facility] [place] [facility] [address] [facility] [id number] [place] [address]- 5275 Jan, [facility] [place] [facility] [address] [id number] [place] [address]- 5917 Jan, [facility] [place] [facility] [address] [id number] [place] [address]- 9829 Jan, [facility] [place] [facility] [address] [id number] [place] [address]- 2389 Dec, [facility] [place] [facility] [address] [id number] [place] [address]- 1263 Dec, [facility] [place] [facility] [address] [id number] [place] [address]- 2791 Dec, [facility] [place] [facility] [address] [id number] [place] [address]- 4484 Dec, [facility] [place] [facility] [address] [id number] [place] [address]- 9220 Dec, [facility] [place] [facility] [address] [id number] [place] [address]- 1390 Dec, [facility] [place] [facility] [address] [id number] [place] [address]- 8453 Dec, [facility] [place] [facility] [address] [id number] [place] [address]- 1503 Dec, [facility] [place] [facility] [address] [id number] [place] [address]- 3944 Dec, [facility] [place] [facility] [address] [id number] [place] [address]- 3535 Dec, [facility] [place] [facility] [address] [id number] [place] [address]- 9047 Dec, [facility] [place] [facility] [address] [id number] [place] [address]- 2410 Nov, [facility] [place] [facility] [address] [id number] [place] [address]- 6461 Nov, [facility] [place] [facility] [address] [id number] [place] [address]- 3155 Nov, [facility] [place] [facility] [address] [id number] [place] [address]- 3494 Nov, [facility] [place] [facility] [address] [id number] [place] [address]- 3124 Nov, [facility] [place] [facility] [address] [id number] [place] [address]- 0554 15 Nov, 2013 [facility] [place] [facility] [address] [id number] [place] [address]- 2555 15 Nov, 2013 [facility] [place] [facility] [address] [id number] [place] [address]- 7163 15 Nov, 2013 [facility] [place] [facility] [address] [id number] [place] [address]- 8350 15 Nov, 2013 [facility] [place] [facility] [address] [id number] [place] [address]- 8186 14 Nov, 2013 [facility] [place] [facility] [address] [id number] [place] [address]- 3853 14 Nov, 2013 [facility] [place] [facility] [address] [id number] [place] [address]- 2133 14 Nov, 2013 [facility] [place] [facility] [address] [id number] [place] [address]- 9343 14 Nov, 2013 [facility] [place] [facility] [address] [id number] [place] [address]- 6386 13 Nov, 2013 [facility] [place] [facility] [address] [id number] [place] [address]- 7553 13 Nov, 2013 [facility] [place] [facility] [address] [id number] [place] [address]- 2669 11 Nov, 2013 [facility] [place] [facility] [address] [id number] [place] [address]- 7077 11 Nov, 2013 [facility] [place] [facility] [address] [id number] [place] [address]- 0669 07 Nov, 2013 [facility] [place] [facility] [address] [id number], [place] [address]- 3580 07 Nov, 2013 [facility] [place] [facility] [address] [id number], [place] [address]- 1225 07 Nov, 2013 [facility] [place] [facility] [address] [id number] [place] [address]- 4088 07 Nov, 2013 [facility] [place] [facility] [address] [id number], [place] [address]- 7015 30 Oct, 2013 [facility] [place] [facility] [address] [id number] [place] [address]- 0079 30 Oct, 2013 [facility] [place] [facility] [address] [id number] [place] [address]- 1962 26 Oct, 2013 [facility] [place] [facility] [address] [id number] [place] [address]- 3663 26 Oct, 2013 [facility] [place] [facility] [address] [id number] [place] [address]- 6361 22 Oct, 2013 [facility] [place] [facility] [address] [id number] [place] [address]- 8342 22 Oct, 2013 [facility] [place] [facility] [address] [id number] [place] [address]- 1738 18 Oct, 2013 [facility] [place] [facility] [address] [id number] [place] [address]- 6948 18 Oct, 2013 [facility] [place] [facility] [address] [id number] [place] [address]- 3918 18 Oct, 2013 [facility] [place] [facility] [address] [id number] [place] [address]- 4054 18 Oct, 2013 [facility] [place] [facility] [address] [id number] [place] [address]- 4987 12 Oct, 2013 [facility] [place] [facility] [address] [id number] [place] [address]- 1745 Oct, 2013 [facility] [place] [facility] [address] [id number] [place] [address]- 3680 Oct, 2013 [facility] [place] [facility] [address] [id number] [place] [address]- 2543 Oct, 2013 [facility] [place] [facility] [address] [id number] [place] [address]- 5468 Sep, [facility] [place] [facility] [address] [id number] [place] [address]- 2268 Sep, [facility] [place] [facility] [address] [id number] [place] [address]- 2880 Sep, [facility] [place] [facility] [address] [id number] [place] [address]- 4302 Sep, [facility] [place] [facility] [address] [id number] [place] [address]- 4122 Sep, [facility] [place] [facility] [address] [id number] [place] [address]- 4816 Sep, [facility] [place] [facility] [address] [id number] [place] [address]- 6360 Sep, [facility] [place] [facility] [address] [id number] [place] [address]- 7515 Sep, [facility] [place] [facility] [address] [id number] [place] [address]- 6323 Sep, [facility] [place] [facility] [address] [id number] [place] [address]- 8474 Sep, [facility] [place] [facility] [address] [id number] [place] [address]- 5192 Sep, [facility] [place] [facility] [address] [id number] [place] [address]- 5459 Sep, [facility] [place] [facility] [address] [id number] [place] [address]- 4919 Sep, [facility] [place] [facility] [address] [id number] [place] [address]- 0876 Sep, [facility] [place] [facility] [address] [id number] [place] [address]- 0570 Sep, [facility] [place] [facility] [address] [id number] [place] [address]- 9914 Sep, [facility] [place] [facility] [address] [id number] [place] [address]- 9538 Sep, [facility] [place] [facility] [address] [id number] [place] [address]- 9123 Sep, [facility] [place] [facility] [address] [id number] [place] [address]- 0445 Aug, [facility] [place] [facility] [address] [id number] [place] [address]- 3539 Aug, [facility] [place] [facility] [address] [id number] [place] [address]- 0556 Aug, [facility] [place] [facility] [address] [id number] [place] [address]- 0025 Aug, [facility] [place] [facility] [address] [id number] [place] [address]- 3447 Aug, [facility] [place] [facility] [address] [id number] [place] [address]- 8663 Aug, [facility] [place] [facility] [address] [id number] [place] [address]- 7589 Jul, [facility] [place] [facility] [address] [id number] [place] [address]- 4157 Jul, [facility] [place] [facility] [address] [id number] [place] [address]- 1981 Jul, [facility] [place] [facility] [address] [id number] [place] [address]- 1790 Jul, [facility] [place] [facility] [address] [id number] [place] [address]- 8153 June, [facility] [place] [facility] [address] [id number] [place] [address]- 3561 June, [facility] [place] [facility] [address] [id number] [place] [address]- 8972 June, [facility] [place] [facility] [address] [id number] [place] [address]- 6220 June, [facility] [place] [facility] [address] [id number] [place] [address]- 5608 June, [facility] [place] [facility] [address] [id number] [place] [address]- 0579 June, [facility] [place] [facility] [address] [id number] [place] [address]- 2510 June, [facility] [place] [facility] [address] [id number] [place] [address]- 3552 29 May, 2013 [facility] [place] [facility] [address] [id number] [place] [address]- 9156 29 May, 2013 [facility] [place] [facility] [address] [id number] [place] [address]- 9606 May, [facility] [place] [facility] [address] [id number] [place] [address]- 3928 May, [facility] [place] [facility] [address] [id number] [place] [address]- 4887 May, [facility] [place] [facility] [address] [id number] [place] [address]- 2006 May, [facility] [place] [facility] [address] [id number] [place] [address]- 0058 31 Apr, 2013 [facility] [place] [facility] [address] [id number] [place] [address]- 3925 31 Apr, 2013 [facility] [place] [facility] [address] [id number] [place] [address]- 9225 28 Apr, 2013 [facility] [place] [facility] [address] [id number] [place] [address]- 2482 28 Apr, 2013 [facility] [place] [facility] [address] [id number] [place] [address]- 2530 14 Apr, 2013 [facility] [place] [facility] [address] [id number] [place] [address]- 2632 14 Apr, 2013 [facility] [place] [facility] [address] [id number] [place] [address]- 3437 12 Apr, 2013 [facility] [place] [facility] [address] [id number] [place] 1136 12 Apr, 2013 [facility] [place] [facility] [address] [id number] [place] [address]- 7417 10 Apr, 2013 [facility] [place] [facility] [address] [id number] [place] [address]- 1328 Apr, [facility] [place] [facility] [address] [id number] [place] [address]- 8535 Apr, [facility] [place] [facility] [address] [id number] [place] [address]- 4450 Apr, [facility] [place] [facility] [address] [id number] [place] [address] Apr, [facility] [place] [facility] [address] [id number] [place] [address] Apr, [facility] [place] [facility] [address] [id number] [place] [address] Mar, [facility] [place] [facility] [address] [id number] [place] [address] Mar, [facility] [place] [facility] [address] [id number] [place] [address] Mar, [facility] [place] [facility] [address] [id number] [place] [address] Feb, [facility] [place] [facility] [address] [id number] [place] [address] Feb, [facility] [place] [facility] [address] [id number] [place] [address] Feb, [facility] [place] [facility] [address] [id number] [place] [address] Feb, [facility] [place] [facility] [address] [id number] [place] [address] Feb, [facility] [place] [facility] [address] [id number] [place] [address] Feb, [facility] [place] [facility] [address] [id number] [place] [address] Feb, [facility] [place] [facility] [address] [id number] [place] [address]- [address] Feb, [facility] [place] [facility] [address] [id number] [place] [address] Feb, [facility] [address] [id number] [place] [address] Feb, [facility] [address] [id number] [place] [address] Jan, [facility] [address] [id number] [place] [address] Jan, [facility] [address] [id number] [place] [address] Jan, [facility] [address] [id number] [place] [address] Jan, [facility] [address] [id number] [place] [address] Jan, [facility] [address] [id number] [place] [address] Jan, [facility] [address] [id number] [place] [address] Jan, [facility] [address] [id number] [place] [address] 2016 Jan, [facility] [address] [id number] [place] [address] Jan, [facility] [address] [id number] [place] [address] 19 Jan, 2013 [facility] [address] [id number] [place] [address]- [address] 17 Jan, 2013 [facility] [address] [id number] [place] [address] 17 Jan, 2013 [facility] [address] [id number] [place] [address]- [address] 16 Jan, 2013 [facility] [address] [id number] [place] [address]- [address] Jan, [facility] [address] [id number] [place] [address] Jan, [facility] [place] [facility] [address] [id number] [place] [address]- [address] Jan, [facility] [place] [facility] [address] [id number] [place] [address] Jan, [facility] [place] [facility] [address] [id number] [place] [address] Jan, [facility] [place] [facility] [address] [id number] [place] [address] Jan, [facility] [place] [facility] [address] [id number] [place] [address]- [address] Jan, [facility] [place] [facility] [address] [id number] [place] [address] Jan, [facility] [place] [facility] [address] [id number], [place] [address] Dec, [facility] [place] [address] [id number] [place] [address]- [address] Dec, [facility] [address] [id number], [place] [address] Dec, [facility] [address] [id number], [place] [address] Dec, [facility] [address] [id number], [place] [address] Dec, [facility] [address] [id number], [place] [address] Dec, [facility] [address] [id number], [place] [address] Dec, [facility] [address] [id number], [place] [address] Dec, [facility] [address] [id number], [place] [address] Dec, [facility] [address] [id number] [place] [address]- [address] Dec, [facility] [place] [facility] [address] [id number] [place] [address] Nov, [facility] [address] [id number] [place] [address]- [address] Nov, [facility] [place] [facility] [address] [id number] [place] [address]- [address] Nov, [facility] [place] [facility] [address] [id number] [place] [address]- [address] Nov, [facility] [place] [facility] [address] [id number] [place] [address]- 98[address] Nov, [facility] [place] [facility] [address] [id number] [place] [address]- 7027 Nov, [facility] [place] [facility] [address] [id number] [place] [address] 1145 Nov, [facility] [place] [facility] [address] [id number] [place] [address] 368[address] Nov, [facility] [place] [facility] [address] [facility]NOTE 3] [id number], [place] [address] Nov, [facility] [place] [facility] [address] [id number][place] [address] Nov, [facility] [place] [facility] [address] [id number], [place] [address] Oct, [facility] [place] [facility] [address] [id number] [place] [address]- 18[address] Oct, [facility] [place] [facility] [address] [id number] [place] [address] 2363 Oct, [facility] [place] [facility] [address] [facility]NOTE 3] [id number] [place] [address]- 2369 25 Oct, 2012 [facility] [place] [facility] [address] [id number] [place] [address] 2546 Oct, [facility] [place] [facility] [address] [id number] [place] [address] 1359 Sep, [facility] [place] [facility] [address] [id number] [place] [address] 2546 Sep, [facility] [place] [facility] [address] [id number] [place] [address]- 0345 Aug, [facility] [place] [facility] [address] [id number] [place] [address]- 9617 Aug, [facility] [place] [facility] [address] [id number] [place] [address]- 9226 Aug, [facility] [place] [facility] [address] [id number] [place] [address]- 7514 Aug, [facility] [place] [facility] [address] [id number] [place] [address]- 7448 Aug, [facility] [place] [facility] [address] [id number] [place] [address]- 6484 Aug, [facility] [place] [facility] [address] [id number] [place] [address]- 1688 Aug, [facility] [place] [facility] [address] [id number] [place] [address]- 8782 Jul, [facility] [place] [facility] [address] [id number] [place] [address]- 7104 Jul, [facility] [place] [facility] [address] [id number] [place] [address]- 3146 June, [facility] [place] [facility] [address] [id number] [place] [address]- 4498 June, [facility] [place] [facility] [address] [id number] [place] [address]- 9526 June, [facility] [place] [facility] [address] [id number] [place] [address]- 9003 June, [facility] [address] [id number] [place] [address]- 6707 June, [facility] [place] [facility] [address] [id number] [place] [address]- 4090 June, [facility] [place] [facility] [address] [id number] [place] [address] June, [facility] [place] [facility] [address] [id number] [place] [address]- 3851 June, [facility] [place] [facility] [address] [id number] [place] [address]- 1418 June, [facility] [place] [facility] [address] [id number] [place] [address]- 4899 June, [facility] [place] [facility] [address] [id number] [place] [address]- 6053 June, [facility] [place] [facility] [address] [id number] [place] [address]- 8595 May, [facility] [place] [facility] [address] [id number] [place] [address]- 5338 May, [facility] [place] [facility] [address] [id number] [place] [address]- 1566 May, [facility] [place] [facility] [address] [id number] [place] [address]- 0147 May, [facility] [place] [facility] [address] [id number], [place] [address] 39[address] Apr, [facility] [place] [facility] [address] [id number] [place] [address]- 0685 Apr, [facility] [place] [facility] [address] [id number] [place] [address]- 5515 Apr, [facility] [place] [facility] [address] [id number] [place] [address]- 4826 Mar, [facility] [place] [facility] [address] [id number] [place] [address]- 5571 11 Mar, 2012 [facility] [address] [id number] [place] [address]- 5505 Feb, [facility] [place] [facility] [address] [id number] [place] [address]- 4131 Feb, [facility] [address] [id number] [place] [address]- 2096 Feb, [facility] [place] [facility] [address] [id number] [place] [address]- 0518 Feb, [facility] [address] [id number] [place] [address]- 8508 16 Feb, 2012 [facility] [address] [id number] [place] [address]- 7389 Feb, [facility] [address] [id number] [place] [address]- 2002 Feb, [facility] [address] [id number] [place] [address]- 9158 Jan, [facility] [address] [id number] [place] [address]- 1567 31 Jan, 2012 [facility] [address] [id number] [place] [address]- 2665 28 Jan, 2012 [facility] [address] [id number] [place] [address]- 5856 17 Jan, 2012 [facility] [address] [id number] [place] 17 Jan, 2012 [facility] [place] [facility] [address] [id number] [place] [address]- 2629 Jan, [facility] [address] [id number] [place] [address]- 2543 Jan, [facility] [address] [id number] [place] [address]- 9889 Jan, [facility] [place] [facility] [address] [id number] [place] [address]- 6895 Jan, [facility] [place] [facility] [address] [id number] [place] 9179 Jan, [facility] [place] [facility] [address] [id number] [place] [address]- 2339 Jan, [facility] [place] [facility] [address] [id number] [place] [address]- 5620 Dec, [facility] [place] [facility] [address] [id number] [place] [address]- 9039 Dec, [facility] [place] [facility] [address] [id number] [place] [address]- 5670 Dec, [facility] [place] [facility] [address] [id number] [place] [address]- 1782 Dec, [facility] [place] [facility] [address] [id number] [place] [address]- 2434 Nov, [facility] [place] [facility] [address] [id number] [place] [address]- 6467 Nov, [facility] [place] [facility] [address] [id number] [place] [address]- 3401 Nov, [facility] [place] [facility] [address] [id number] [place] [address]- 6036 27 Oct, 2011 [facility] [place] [facility] [address] [id number] [place] [address]- 0886 24 Sep2011 [facility] [place] [facility] [address] [id number] [place] [address]- 2100 21 Oct, 2011 [facility] [place] [facility] [address] [id number] [place] [address]- 7773 10 Oct, 2011 [facility] [place] [facility] [address] [id number] [place] 07 Oct, 2011 [facility] [place] [facility] [address] [id number] [place] [address]- 0377 Oct, [facility] [place] [facility] [address] [id number] [place] [address]- 0484 Oct, [facility] [place] [facility] [address] [id number] [place] [address]- 3724 Sep, [facility] [place] [facility] [address] [id number] [place] [address]- 8906 Sep, [facility] [place] [facility] [address] [id number] [place] [address]- 5975 Sep, [facility] [place] [facility] [address] [id number] [place] [address]- 0847 Sep, [facility] [place] [facility] [address] [id number] [place] [address]- 7212 Sep, [facility] [place] [facility] [address] [id number] [place] [address]- 3365 Aug, [facility] [place] [facility] [address] [id number] [place] [address]- 4224 Aug, [facility] [place] [facility] [address] [id number] [place] [address]- 9970 Aug, [facility] [place] [facility] [address] [id number] [place] [address]- 4103 Aug, [facility] [place] [facility] [address] [id number] [place] [address]- 8344 Aug, [facility] [place] [facility] [address] [id number] [place] [address]- 7186 Aug, [facility] [place] [facility] [address] [id number] [place] [address]- 1498 Aug, [facility] [place] [facility] [address] [id number] [place] [address]- 0535 Jul, [facility] [place] [facility] [address] [id number] [place] [address]- 6746 Jul, [facility] [place] [facility] [address] [id number] [place] [address]- 3119 22 Jul, 2011 [facility] [address] [id number] [place] [address]- 7541 Jul, [facility] [place] [facility] [address] [id number] [place] [address]- 2086 Jul, [facility] [place] [facility] [address] [id number] [place] [address]- 0902 Jul, [facility] [place] [facility] [address] [id number] [place] [address]- 9921 07 Jul, 2011 [facility] [place] [facility] [address] [id number] [place] [address]- 6186 Jul, [facility] [address] [id number] [place] [address]- 8363 Jul, [facility] [address] [id number] [place] [address]- 9250 June, [facility] [address] [id number] [place] [address]- 0686 June, [facility] [address] [id number] [place] [address]- 5785 June, [facility] [address] [id number] [place] [address]- 6764 June, [facility] [place] [facility] [address] [id number] [place] [address]- 7621 June, [facility] [address] [id number] [place] [address]- 3055 June, [facility] [place] [facility] [address] [id number] [place] [address]- 4659 June, [facility] [place] [facility] [address] [id number] [place] [address]- 6966 June, [facility] [place] [facility] [address] [id number] [place] [address]- 3083 May, [facility] [place] [facility] [address] [id number] [place] [address]- 9389 May, [facility] [place] [facility] [address] [id number] [place] [address]- 9715 May, [facility] [place] [facility] [address] [id number] [place] [address]- 7141 May, [facility] [place] [facility] [address] [id number] [place] [address]- 6549 May, [facility] [place] [facility] [address] [id number] [place] [address]- 9001 May, [facility] [place] [facility] [address] [id number] [place] [address]- 4142 May, [facility] [place] [facility] [address] [id number] [place] [address]- 6521 Apr, [facility] [place] [facility] [address] [id number] [place] [address]- 2872 Apr, [facility] [place] [facility] [address] [id number] [place] [address]- 6141 Apr, [facility] [place] [facility] [address] [id number] [place] [address]- 4281 Apr, [facility] [place] [facility] [address] [id number] [place] [address]- 5261 Apr, [facility] [place] [facility] [address] [id number] [place] [address]- 0105 Apr, [facility] [place] [facility] [address] [id number] [place] [address]- 4847 Apr, [facility] [place] [facility] [address] [id number] [place] [address]- 2405 Mar, [facility] [place] [facility] [address] [id number] [place] [address]- 8169 Mar, [facility] [place] [facility] [address] [id number] [place] [address]- 1311 14 Mar, 2011 [facility] [address] [id number] [place] [address]- 7026 13 Mar, 2011 [facility] [address] [id number] [place] [address] 2546 09 Mar, 2011 [facility] [address] [id number] [place] [address]- 4376 Mar, [facility] [address] [id number] [place] [address] 254 Mar, [facility] [address] [id number] [place] [address]- 2656 Feb, [facility] [address] [id number] [place] [address]- 7139 Feb, [facility] [address] [id number] [place] [address]- 5044 Feb, [facility] [address] [id number] [place] [address]- 4858 Feb, [facility] [address] [id number] [address]- 3266 Feb, [facility] [address] [facility]NOTE [facility]] [id number] [place] [address]- 9342 Feb, [facility] [address] [id number] [place] [address]- 7421 Feb, [facility] [address] [id number] [place] [address]- 6514 Feb, [facility] [address] [id number] [place] [address]- 9801 Feb, [facility] [address] [id number] [place] [address]- 7106 Feb, [facility] [address] [id number] [place] 2481 Jan, [facility] [place] [facility] [address] [id number] [place] [address]- 6829 Jan, [facility] [place] [facility] [address] [id number] [place] [address]- 6687 Jan, [facility] [place] [facility] [address] [id number] [place] [address]- 5087 Jan, [facility] [place] [facility] [address] [id number] [place] [address]- 9034 Jan, [facility] [place] [facility] [address] [id number] [place] [address]- 5448 Jan, [facility] [place] [facility] [address] [id number] [place] [address]- 7961 Jan, [facility] [place] [facility] [address] [id number] [place] [address]- 4362 Jan, [facility] [place] [facility] [address] [id number] [place] [address]- 7346 Jan, [facility] [place] [facility] [address] [id number] [place] [address]- 8234 Jan, [facility] [place] [facility] [address] [id number] [place] [address]- 5144 Jan, [facility] [place] [facility] [address] [id number], [place] [address]- 9483 17 Dec, 2010 [facility] [place] [facility] [address] [id number], [place] [address]- 6354 17 Dec, 2010 [facility] [place] [facility] [address] [id number] [place] [address]- 3955 17 Dec, 2010 [facility] [place] [facility] [address] [id number] [place] [address]- 3257 16 Dec, 2010 [facility] [place] [facility] [address] [id number], [place] [address]- [address] 14 Dec, 2010 [facility] [place] [facility] [address] [id number], [place] [address]- 0716 Dec, [facility] [place] [facility] [address] [id number] [place] [address]- 5140 Dec, [facility] [place] [facility] [address] [id number] [place] [address]- 0405 Dec, [facility] [place] [facility] [address] [facility] 3] [id number] [place] [address]- 8349 Dec, [facility] [place] [facility] [address] [id number] [place] [address]- 1903 Nov, [facility] [place] [facility] [id number] [place] [address], [place] [address]- 9705 Nov, [facility] [place] [facility] [address] [id number] [place] [address]- 8860 Nov, [facility] [place] [facility] [address] [facility]NOTE 3] [id number] [place] [address]- 4172 Nov, [facility] [place] [facility] [address] [id number] [place] [address]- 2751 24 Nov, 2010 [facility] [place] [facility] [address] [facility] 3] [id number] [place] [address]- 0030 Nov, [facility] [place] [facility] [address] [facility] 3] [id number] [place] [address]- 4223 Aug, [facility] [place] [facility] [address] [id number], [place] [address]- 1007 14 Feb, 2010 [facility] [place] [facility] [address] [id number], [place] [address]- 4443 14 Jan, 2010 [facility] [place] [facility] [address] [id number] [place] [address]- 1013 Jan, [facility] [place] [facility] [address] [facility]NOTE 3] [id number] [place] [address]- 4881 Jan, [facility] [place] [facility] [address] [facility]NOTE 3] [id number] [place] 8057 Jan, [facility] [place] [facility] [address] [id number] [address]- 2546 Jan, [facility] [address] [id number] [address]- 3866 Dec, [facility] [id number], [place] [address]- 2546 Dec, [facility] [id number], [place] [address]- 2546 Dec, [facility] [id number], [place] [address]- 5426 Dec, [facility] [id number], [place] [address]- 7911 Nov, [facility] [id number], [place] [address]- 2174 Nov, [facility] [id number], [place] [address]- 5636 Nov, IMMUNIZATIONS No Known Immunizations SOCIAL HISTORY Never Assessed REASON FOR VISIT PLAN OF CARE VITAL SIGNS MEDICATIONS Medication Instructions Dosage Frequency Start Date End Date Duration Status Clonidine HCl 0.1 MG Orally twice a day 1 tablet 12h 30 Active Cyclobenzaprine HCl 10 mg Orally Three times a day 1 tablet 8h 30 Active RESULTS No Results PROCEDURES No [...]
--- OUTSIDE RECORDS SUMMARY | 2018-01-13 21:09 | XMS REPORT ---
Author Author ARJUN Thakur Organization 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 Name Role Phone Blaze ARJUN Unavailable PROBLEMS Type Condition ICD9-CM Code [id number] Code Onset Dates Condition Status SNOMED Code Problem Left hip pain M25.552 Active 82837811 Problem Other chronic pain G89.29 Active 88496751 Problem Chronic hepatitis C without hepatic coma B18.2 Active 093716455 Problem Other obesity due to excess calories E66.09 Active 764809011 Problem Body mass index (BMI) of 34.0-34.9 in adult Z68.34 Active 814115979 Problem Other psychoactive substance dependence, 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 Active 1377942 Problem 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, 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 878095975 Problem Gastroesophageal reflux disease, esophagitis presence not specified K21.9 Active 618025270 Problem Venous insufficiency (chronic) (peripheral) I87.2 Active 772236936 Problem Unspecified episodic mood disorder F39 Active 50894965 Problem Hypertension I10 Active 95965834 Problem Combined drug dependence excluding opioids, 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 [address] [facility] [id number] [address] Aug, [facility] [id number] [address] Aug, Unspecified episodic mood disorder F39 [facility] [id number] [address] 69[address] Aug, [facility] [address] [address] Jul, Unspecified episodic mood disorder F39 [facility] [id number] [address] Jul, [facility] [id number] [address] 7006 Jul, Arthritis M19.90 [facility] [id number] [place] [address] 76143- 5349 Jul, Left hip pain M25.552 ; Hypertension I10 ; Other obesity due to excess calories E66.09 and Body mass index (BMI) of 34.0-34.9 in adult Z68.34 [facility] [id number] [address] Jul, Unspecified episodic mood disorder F39 [facility] [id number] [place] [address] 26616- 3146 June, Gastroesophageal reflux disease, esophagitis presence not specified K21.9 [facility] [id number] [address] June, [facility] [address] [address] June, [facility] [address] [address] 7692 June, Arthritis M19.90 [facility] [address] [address] 3360 June, [facility] [address] [address] 24[address] June, [facility] [id number] [address] 0164 June, Unspecified episodic mood disorder F39 [facility] [address], [place] [address] 1933 May, Unspecified episodic mood disorder F39 [facility] [id number] [place] [address] 02176- 3121 May, 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 [facility] [id number] [place] [address] 20496- 6792 May, [place] [id number] [place] [address] 03736- 9174 May, Other disorder of impulse control F63.89 ; Unspecified episodic mood disorder F39 ; Combined drug dependence excluding opioids, 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 [address] [address] 0138 Apr, [facility] [id number] [place] [address] 91461- 0584 Apr, Arthritis M19.90 and Unspecified episodic mood disorder F39 [facility] [id number] [place] [address] 76057- 5688 Apr, Unspecified episodic mood disorder F39 [facility] [id number] [place] [address] 40044- 6723 Apr, [facility] [id number] [place] [address] 80458- 2396 Apr, 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 [address] [address] 6473 Mar, Unspecified episodic mood disorder F39 [facility] [id number] [place] [address] 94892- 0067 Mar, Gastroesophageal reflux disease, esophagitis presence not specified K21.9 [facility] [id number] [place] [address] 30650- 1808 Mar, Arthritis M19.90 and Unspecified episodic mood disorder F39 [facility] [address] [address] 0871 Feb, [facility] [id number] [place] [address] 74441- 5802 Feb, [facility] [id number] [place] [address] 30075- 9127 Feb, 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 ; Unspecified episodic mood disorder F39 and Left hip pain M25.552 [place] [address] 45311- 2841 Feb, [facility] [place] [id number] [place] [address] 54316- 1820 Feb, [facility] [address] 72579- 8349 Jan, Arthritis M19.90 [place] [id number] [place] [address] 75859- 0668 Jan, Left hip pain M25.552 and Non-pressure chronic ulcer of right calf, 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 [facility] [place] [id number] [place] [address] 65182- 6153 Jan, Chronic hepatitis C without hepatic coma B18.2 [place] [id number] [place] [address] 87111- 7132 Jan, Encounter for immunization Z23 ; Venous insufficiency ( chronic) (peripheral) I87.2 ; Non-pressure chronic ulcer of unspecified calf limited to breakdown of skin L97.201 and Gastroesophageal reflux disease, esophagitis presence not specified K21.9 [facility] [id number] [place] [address] 37942- 6254 Jan, [place] [id number] [place] [address] 93859- 4001 Jan, Chronic hepatitis C without hepatic coma B18.2 and Encounter for immunization Z23 [facility] [id number] [place] [address] 71776- 9288 Jan, Arthritis M19.90 [facility] [id number] [place] [address] 39427- 2933 Jan, [facility] [id number] [place] [address] 90420- 8879 Dec, [facility] [id number] [place] [address] 84972- 6482 Dec, Unspecified episodic mood disorder F39 [facility] [id number] [place] [address] 79338- 4949 Dec, Arthritis M19.90 [facility] [id number] [place] [address] 10556- 0464 Dec, Arthritis M19.90 [facility] [id number] [place] [address] 50088- 2232 Nov, [facility] [id number] [place] [address] 46905- 0508 Nov, 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 [id number] [place] [address] 28315- 2708 Nov, Arthritis M19.90 [facility] [id number] [place] [address] 25211 -6267 Oct, Partial thickness burn of abdomen, initial encounter T21.22XA [facility] [id number] [place] [address] 56392- 0454 Oct, [facility] [id number] [address]- 4017 Sep, Arthritis M19.90 [facility] [id number] [place] [address] 61768- 2006 Sep, [facility] [id number] [place] [address] 65339- 8092 Sep, [facility] [id number] [place] [address] 74743- 9857 Sep, Unspecified episodic mood disorder F39 ; Chronic hepatitis C without hepatic coma B18.2 and Left hip pain M25.552 [facility] [id number] [place] [address] 32455- 8272 Sep, Arthritis M19.90 and Left hip pain M25.552 [facility] [id number] [place] [address] 14420- 4634 Aug, [facility] [id number] [place] [address] 37517- 7424 Aug, [facility] [id number] [place] [address] 78642- 4106 Aug, Chronic hepatitis C without hepatic coma B18.2 [facility] [address], [place] [address]- 4244 Aug, [facility] [id number] [place] [address] 79010- 1895 Aug, Chronic hepatitis C without hepatic coma B18.2 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 [id number] [place] [address] 62825- 4700 Aug, [facility] [id number] [address]- 7339 Aug, Chronic hepatitis C without hepatic coma B18.2 and Hypertension I10 [facility] [id number] [place] [address] 34946- 7275 Jul, [facility] [address] 92844- 1275 June, [facility] [address] 30998- 1675 Apr, Fibromyalgia M79.7 ; Left hip pain M25.552 and Decubitus ulcer of sacral region, stage 1 L89.151 [facility] [id number] [place] [address] 61823- 1032 Apr, [facility] [address] 30363- 9589 Apr, [facility] [address] 67435- 8329 Feb, 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 [id number] [place] [address] 14342- 0442 Dec, [facility] [id number] [place] [address] 84479- 1161 18 Nov, 2015 [facility] [address] 10060- 0227 Nov, [facility] [id number] [place] [address] 53503- 0920 10 Nov, 2015 Other disorder of impulse control F63.89 and Anxiety F41.9 [facility] [address] 80900- 0351 21 Oct, 2015 [facility] [id number] [place] [address] 70182 -1811 14 Oct, 2016 Open wound of left thigh, initial encounter S71.102A [facility] [id number] [place] [address] 31028- 6181 Oct, 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 [id number] [place] [address] 80593- 4269 Sep, Other chronic pain G89.29 [facility] [id number] [place] [address] 71492- 1746 Sep, [facility] [id number] [place] [address] 20334- 5186 Sep, [facility] [id number] [place] [address] 32587- 8976 Aug, [facility] [id number] [place] [address] 48586 2546 Aug, [facility] [id number] [place] [address] 98042 2546 Aug, [facility] [id number] [place] [address] 10478 2546 Jul, [facility] [id number] [place] [address] 69230 2546 Jul, [facility] [id number] [place] [address] 34601 2546 Jul, [facility] [id number] [place] [address] 09749- 2716 Jul, Arthritis M19.90 ; Chronic hepatitis C without hepatic coma B18.2 and Left hip pain M25.552 [facility] [id number] [place] [address] 59251- 3451 Jul, Left knee pain M25.562 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 [id number] [place] [address] 02085- 6582 Jul, Left knee pain M25.562 [facility] [id number] [place] [address] 74797- 9303 Jul, Left knee pain M25.562 and Left hip pain M25.552 [facility] [id number] [place] [address] 26032- 9807 Jul, [facility] [id number] [place] [address] 72827- 2022 June, [facility] [id number] [place] [address] 63876- 6012 June, Combinations of drug dependence excluding opioid type drug, unspecified abuse 304.80 ; Other disorder of impulse control 312.39 ; Unspecified episodic mood disorder F39 and Anxiety F41.9 [facility] [id number] [place] [address] 65470- 0083 June, Other fatigue R53.83 ; Headache R51 and Left knee pain M25.562 [facility] [id number] [place] [address] 80799- 8721 June, Unspecified episodic mood disorder F39 ; Combinations of drug dependence excluding opioid type drug, unspecified abuse 304.80 ; Other disorder of impulse control 312.39 and Anxiety F41.9 [facility] [id number] [place] [address] 09223- 7328 June, Anxiety F41.9 [facility] [address] [place] [address] 53323- 2024 June, Pain in left knee M25.562 [facility] [id number] [place] [address] 34332- 8463 June, Anxiety F41.9 and Combinations of drug dependence excluding opioid type drug, unspecified abuse 304.80 [facility] [id number] [place] [address] 92084- 1701 June, Unspecified episodic mood disorder 296.90 ; Combinations of drug dependence excluding opioid type drug, unspecified abuse 304.80 and Other disorder of impulse control 312.39 [facility] [id number] [place] [address] 89867- 9523 June, Anxiety F41.9 and Unspecified episodic mood disorder 296.90 [facility] [id number] [place] [address] 41391- 3338 May, Arthritis M19.90 [facility] [id number] [place] [address] 84177- 9612 May, Arthritis M19.90 [facility] [id number] [place] [address] 44083- 1119 May, Anxiety F41.9 ; Combinations of drug dependence excluding opioid type drug, unspecified abuse 304.80 and Other disorder of impulse control 312.39 [facility] [id number] [place] [address] 61179- 1524 May, Left knee pain M25.562 [facility] [id number] [place] [address] 45303- 2498 May, Arthritis M19.90 [facility] [id number] [place] [address] 30560- 3498 May, [facility] [id number] [place] [address] 32991- 2715 May, Anxiety F41.9 ; Unspecified episodic mood disorder 296.90 ; Combinations of drug dependence excluding opioid type drug, unspecified abuse 304.80 and Other disorder of impulse control 312.39 [facility] [place] [id number] [place] [address] 69149- 2377 May, Left knee pain M25.562 [facility] [id number] [place] [address] 98840- 1268 May, Left knee pain M25.562 ; Combinations of drug dependence excluding opioid type drug, unspecified abuse 304.80 ; Other disorder of impulse control 312.39 ; Fibromyalgia M79.7 ; Hypertension I10 ; Unspecified episodic mood disorder 296.90 and Left hip pain M25.552 [facility] [id number] [place] [address] 26392- 1081 May, Unspecified episodic mood disorder 296.90 ; Other disorder of impulse control 312.39 ; Combinations of drug dependence excluding opioid type drug, unspecified abuse 304.80 and Anxiety F41.9 [place] [id number] [place] [address] 79262- 5659 May, Left knee pain M25.562 ; Combinations of drug dependence excluding opioid type drug, unspecified abuse 304.80 ; Other disorder of impulse control 312.39 ; Fibromyalgia M79.7 ; Hypertension I10 ; Unspecified episodic mood disorder 296.90 and Left hip pain M25.552 [place] [address] [place] [address] 48112- 9074 May, Anxiety F41.9 ; Unspecified episodic mood disorder 296.90 ; Other disorder of impulse control 312.39 and Combinations of drug dependence excluding opioid type drug, unspecified abuse 304.80 [facility] [place] [id number] [place] [address] 58246- 9559 Apr, 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 [address] [address]- 5682 25 Apr, 2015 Arthritis M19.90 [facility] [address] [address]- 5658 Apr, Anxiety F41.9 ; Unspecified episodic mood disorder 296.90 ; Combinations of drug dependence excluding opioid type drug, unspecified abuse 304.80 and Other disorder of impulse control 312.39 [facility] [address] [address]- 6136 17 Apr, 2015 Arthritis M19.90 [facility] [id number] [place] [address] 79784- 3162 15 Apr, 2015 [facility] [id number] [place] [address] 83916- 5350 Apr, [facility] [id number] [place] [address] 98146- 9246 14 Apr, 2015 Unspecified episodic mood disorder 296.90 ; Combinations of drug dependence excluding opioid type drug, unspecified abuse 304.80 ; Other disorder of impulse control 312.39 and Anxiety F41.9 [facility] [address] [address] -3416 Apr, Left knee pain M25.562 [facility] [id number] [place] [address] 02259- 1476 Apr, [facility] [id number] [place] [address] 19704- 4565 Mar, Unspecified episodic mood disorder 296.90 ; Anxiety F41.9 ; Other disorder of impulse control 312.39 and Combinations of drug dependence excluding opioid type drug, unspecified abuse 304.80 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 ; Other disorder of impulse control F63.89 and Anxiety F41.9 [place] [id number] [place] [address] 52993- 6663 12 Mar, 2015 Well woman exam Z01.419 ; Other fatigue R53.83 ; Hot flashes N95.1 ; Depression, unspecified depression type F32.9 and Body mass index (BMI) of 23.0-23.9 in adult Z68.[address] [address] 11 Mar, 2015 Unspecified episodic mood disorder 296.90 ; Other disorder of impulse control 312.39 and Anxiety F41.9 [place] [address] [place] [id number] [place] [address] 11 Mar, 2015 Well woman exam Z01.419 [...] of breast Z12.39 and Limited mobility Z74.09 [place] [id number] [place] [address]- [address] 10 Mar, [address] [place] [address] Mar, [facility] [address] [address] Mar, [facility] [address] [address] Mar, Other specified complication of internal orthopedic prosthetic devices, implants and grafts, initial encounter T84.89XA ; Fibromyalgia M79.7 ; Hypertension I10 ; Anemia D64.9 ; Insomnia G47.00 ; Anxiety F41.9 ; Arthritis M19.90 and Migraine G43.909 [facility] [address] [address] Mar, [facility] [address] [address] Feb, [facility] [address] [address] Feb, Arthritis M19.90 and Anxiety F41.9 [facility] [address] [address] Feb, [facility] [address] [address] Feb, [facility] [address] [address] Feb, [facility] [address] [address]- 2853 Feb, [facility] [id number] [place] [address] 07185- 9565 Feb, Anxiety F41.9 [facility] [address] 69640- 3402 Feb, [facility] [id number] [place] [address] 86103- 2979 Feb, 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 [id number] [place] [address] 47598- 8066 Feb, [facility] [id number] [place] [address] 016545- 8016 Jan, [facility] [address] 24763- 7950 Jan, [facility] [id number] [place] [address] 33537- 0791 Jan, [facility] [id number] [place] [address] 06234- 3942 Jan, [facility] [id number] [place] [address] 09611- 3657 Jan, [facility] [id number] [place] [address] 49753- 2878 Jan, [facility] [id number] [place] [address] 76489- 3061 Jan, [facility] [id number] [place] [address] 87552- 7072 Jan, [facility] [id number] [place] [address] 77301- 3250 Dec, [facility] [id number] [place] [address] 45223- 6031 Dec, Left knee pain M25.562 [facility] [id number] [place] [address] 29504- 5354 Dec, Left knee pain M25.562 [facility] [id number] [place] [address] 61038- 2410 Dec, Fibromyalgia M79.7 ; Hypertension I10 and Arthritis M19.90 [facility] [id number] [place] [address] 63791- 4216 Dec, [facility] [address] [facility] [id number] [address]- 7884 Dec, [facility] [address] [facility] [id number], [place] [address]- 1026 Dec, [facility] [address] [facility] [id number], [place] [address]- 2991 Dec, [facility] [address] [facility] [id number] [place] [address] 58161- 3252 Nov, [facility] [address] [facility] [id number], [place] [address]- 5079 Nov, [facility] [address] [facility] [id number] [place] [address] 03142- 7472 Nov, [facility] [id number] [place] [address] 54565- 6384 Nov, Hypertension I10 [facility] [address] [facility] [id number], [place] [address]- 6859 23 Oct, 2014 [facility] [address] [facility] [id number] [place] [address] 43031- 6851 17 Oct, 2014 [facility] [address] [facility] [id number], [place] [address]- 8172 Oct, [facility] [address] [facility] [id number], [place] [address]- 6093 Oct, [facility] [place] [facility] [address] [facility] [id number], [place] [address]- 0946 Oct, [facility] [address] [facility] [id number], [place] [address]- 1078 Sep, [facility] [place] [facility] [address] [facility] [id number], [place] [address]- 4847 Sep, [facility] [place] [facility] [address] [facility] [id number][place] [address]- 1926 Sep, Hip pain associated with recalled total hip arthroplasty hardware 996.77 [facility] [place] [facility] [address] [id number] [place] [address]- 3028 Sep, [facility] [place] [facility] [address] [id number] [place] [address]- 5844 Sep, [facility] [place] [facility] [address] [id number] [place] [address]- 8438 Sep, [facility] [place] [facility] [address] [id number] [place] [address]- 9531 Aug, [facility] [place] [facility] [address] [id number] [place] [address]- 2113 Jul, [facility] [place] [facility] [address] [id number] [place] [address]- 4518 June, [facility] [place] [facility] [address] [id number] [place] [address]- 7100 June, [facility] [place] [facility] [address] [id number], [place] [address]- 7120 June, [facility] [place] [facility] [address] [id number] [place] [address]- 8226 June, [facility] [place] [facility] [address] [facility] [id number], [place] [address]- 6586 June, [facility] [place] [facility] [address] [id number], [place] [address]- 9094 June, [facility] [place] [facility] [address] [id number], [place] [address]- 8346 May, [facility] [place] [facility] [address] [id number] [place] [address]- 1267 May, [facility] [place] [facility] [address] [id number], [place] [address]- 5368 May, [facility] [place] [facility] [address] [id number] [place] [address]- 0498 Apr, [facility] [place] [facility] [address] [id number] [place] [address]- 1479 30 Apr, 2014 [facility] [place] [facility] [address] [id number] [place] [address]- 5410 19 Apr, 2014 [facility] [place] [facility] [address] [id number] [place] 4658 19 Apr, 2014 [facility] [place] [facility] [address] [id number] [place] [address]- 0129 13 Apr, 2014 [facility] [place] [facility] [address] [id number] [place] [address]- 4917 13 Apr, 2014 [facility] [place] [facility] [address] [id number] [place] [address]- 4385 Apr, [facility] [place] [facility] [address] [facility] [id number] [place] [address]- 7226 12 Apr, 2014 [facility] [place] [facility] [address] [id number] [place] [address]- 4646 10 Apr, 2014 [facility] [place] [facility] [address] [facility] [id number] [place] [address]- 3020 05 Apr, 2014 [facility] [place] [facility] [address] [id number] [place] [address]- 2834 05 Apr, 2014 [facility] [place] [facility] [address] [facility] [id number] [place] [address]- 0926 Mar, 2014 [facility] [place] [facility] [address] [facility] [id number] [place] [address]- 5900 Mar, 2014 [facility] [place] [facility] [address] [facility] [id number] [place] [address]- 8673 16 Mar, 2014 [facility] [place] [facility] [address] [id number] [place] [address]- 1654 16 Mar, 2014 [facility] [place] [facility] [address] [facility] [id number] [place] [address]- 1404 10 Mar, 2014 [facility] [place] [facility] [address] [facility] [id number] [place] [address]- 0036 Mar, [facility] [place] [facility] [address] [id number] [place] [address]- 4981 Feb, [facility] [place] [facility] [address] [id number] [place] [address]- 6923 Feb, [facility] [place] [facility] [address] [id number] [place] [address]- 3132 Feb, [facility] [place] [facility] [address] [id number] [place] [address]- 3981 Feb, [facility] [place] [facility] [address] [id number] [place] [address]- 1219 Jan, [facility] [place] [facility] [address] [id number] [place] [address]- 7555 Jan, [facility] [place] [facility] [address] [id number] [place] [address]- 1189 Jan, [facility] [place] [facility] [address] [id number] [place] [address]- 5596 Jan, [facility] [place] [facility] [address] [id number] [place] [address]- 8228 Dec, [facility] [place] [facility] [address] [id number] [place] [address]- 2484 Dec, [facility] [place] [facility] [address] [id number] [place] [address]- 9708 Dec, [facility] [place] [facility] [address] [id number] [place] [address]- 3452 Dec, [facility] [place] [facility] [address] [id number] [place] [address]- 3192 Dec, [facility] [place] [facility] [address] [id number] [place] [address]- 7433 Dec, [facility] [place] [facility] [address] [id number] [place] [address]- 1306 Dec, [facility] [place] [facility] [address] [id number] [place] [address]- 9929 10 Dec, 2013 [facility] [place] [facility] [address] [id number] [place] [address]- 6067 10 Dec, 2013 [facility] [place] [facility] [address] [id number] [place] [address]- 6509 07 Dec, 2013 [facility] [place] [facility] [address] [id number] [place] [address]- 7941 07 Dec, 2013 [facility] [place] [facility] [address] [id number] [place] [address]- 2676 31 Nov, 2013 [facility] [place] [facility] [address] [id number] [place] [address]- 1678 28 Nov, 2013 [facility] [place] [facility] [address] [id number] [place] [address]- 6655 28 Nov, 2013 [facility] [place] [facility] [address] [id number] [place] [address]- 0253 17 Nov, 2013 [facility] [place] [facility] [address] [id number] [place] [address]- 5555 17 Nov, 2013 [facility] [place] [facility] [address] [id number] [place] [address]- 8571 15 Nov, 2013 [facility] [place] [facility] [address] [id number] [place] [address]- 9743 15 Nov, 2013 [facility] [place] [facility] [address] [id number] [place] [address]- 1936 15 Nov, 2013 [facility] [place] [facility] [address] [id number] [address]- 8100 15 Nov, 2013 [facility] [place] [facility] [address] [id number] [place] [address]- 5327 14 Nov, 2013 [facility] [place] [facility] [address] [id number] [place] [address]- 8849 14 Nov, 2013 [facility] [place] [facility] [address] [id number] [place] [address]- 4808 14 Nov, 2013 [facility] [place] [facility] [address] [id number] [place] [address]- 7941 14 Nov, 2013 [facility] [place] [facility] [address] [id number] [place] [address]- 0025 13 Nov, 2013 [facility] [place] [facility] [address] [id number] [place] [address]- 7236 13 Nov, 2013 [facility] [place] [facility] [address] [id number] [place] [address]- 6177 11 Nov, 2013 [facility] [place] [facility] [address] [id number] [place] [address]- 7798 11 Nov, 2013 [facility] [place] [facility] [address] [id number] [place] [address]- 7730 07 Nov, 2013 [facility] [place] [facility] [address] [id number] [place] [address]- 7028 07 Nov, 2013 [facility] [place] [facility] [address] [id number] [place] [address]- 1053 07 Nov, 2013 [facility] [place] [facility] [address] [id number] [place] [address]- 1465 07 Nov, 2013 [facility] [place] [facility] [address] [id number] [place] [address]- 3917 30 Sep, 2013 [facility] [place] [facility] [address] [id number] [place] [address]- 6236 30 Sep, 2013 [facility] [place] [facility] [address] [id number] [place] [address]- 2546 26 Sep, 2013 [facility] [place] [facility] [address] [id number] [place] [address] 2546 26 Sep, 2013 [facility] [place] [facility] [address] [id number] [place] [address] 2546 22 Sep, 2013 [facility] [place] [facility] [address] [id number] [place] [address]- 2549 22 Sep, 2013 [facility] [place] [facility] [address] [id number] [place] [address]- 2516 18 Oct, 2013 [facility] [place] [facility] [address] [id number] [place] [address]- 1539 18 Oct, 2013 [facility] [place] [facility] [address] [id number] [place] [address]- 7314 Oct, [facility] [place] [facility] [address] [id number] [place] [address]- 8523 Oct, [facility] [place] [facility] [address] [id number] [place] [address]- 2126 Oct, 2013 [facility] [place] [facility] [address] [id number] [place] [address]- 1174 Oct, [facility] [place] [facility] [address] [id number] [place] [address]- 8873 Oct, [facility] [place] [facility] [address] [id number] [place] [address]- 3165 Oct, [facility] [place] [facility] [address] [id number] [place] [address]- 7501 Sep, [facility] [place] [facility] [address] [id number] [place] [address]- 4561 Sep, [facility] [place] [facility] [address] [id number] [place] [address]- 2298 Sep, [facility] [place] [facility] [address] [id number] [place] [address]- 1752 Sep, [facility] [place] [facility] [address] [id number], [place] [address]- 8600 Sep, [facility] [place] [facility] [address] [id number] [place] [address]- 5773 Sep, [facility] [place] [facility] [address] [id number] [place] [address]- 0087 Sep, [facility] [place] [facility] [address] [id number] [place] [address]- 1065 Sep, [facility] [place] [facility] [address] [id number] [place] [address]- 2933 Sep, [facility] [place] [facility] [address] [id number] [place] [address]- 4268 Sep, [facility] [place] [facility] [address] [id number] [place] [address]- 0426 Sep, [facility] [place] [facility] [address] [id number] [place] [address]- 3095 Sep, [facility] [place] [facility] [address] [id number] [place] [address]- 7634 Sep, [facility] [place] [facility] [address] [id number] [place] [address]- 0325 Sep, [facility] [place] [facility] [address] [id number] [place] [address]- 0116 Sep, [facility] [place] [facility] [address] [id number] [place] [address]- 7422 Sep, [facility] [place] [facility] [address] [id number] [place] [address]- 0843 Sep, [facility] [place] [facility] [address] [id number] [place] [address]- 9247 Sep, [facility] [place] [facility] [address] [id number] [place] [address]- 5651 Aug, [facility] [place] [facility] [address] [id number] [place] [address]- 4081 Aug, [facility] [place] [facility] [address] [id number] [place] [address]- 6687 Aug, [facility] [place] [facility] [address] [id number] [place] [address]- 9373 Aug, [facility] [place] [facility] [address] [id number] [place] [address]- 0903 Aug, [facility] [place] [facility] [address] [id number] [place] [address]- 4946 Aug, [facility] [place] [facility] [address] [id number] [place] [address]- 6884 Jul, [facility] [place] [facility] [address] [id number] [place] [address]- 5004 Jul, [facility] [place] [facility] [address] [id number] [place] [address]- 6484 Jul, [facility] [place] [facility] [address] [id number] [place] [address]- 9095 Jul, [facility] [place] [facility] [address] [id number] [place] [address]- 0015 June, [facility] [place] [facility] [address] [id number] [place] [address]- 2761 June, [facility] [place] [facility] [address] [id number] [place] [address]- 3861 June, [facility] [place] [facility] [address] [id number] [place] [address]- 6411 June, [facility] [place] [facility] [address] [id number] [place] [address]- 5714 June, [facility] [place] [facility] [address] [id number] [place] [address]- 2850 June, [facility] [place] [facility] [address] [id number] [place] [address]- 7665 June, [facility] [place] [facility] [address] [id number] [place] [address]- 9151 May, [facility] [place] [facility] [address] [id number] [place] [address]- 2393 May, [facility] [place] [facility] [address] [id number] [place] [address]- 7047 May, [facility] [place] [facility] [address] [id number] [place] [address]- 5647 May, [facility] [place] [facility] [address] [id number] [place] [address]- 9180 May, [facility] [place] [facility] [address] [id number] [place] [address]- 8072 17 May, 2013 [facility] [place] [facility] [address] [id number] [place] [address]- 0278 31 Apr, 2013 [facility] [place] [facility] [address] [id number] [place] [address]- 2706 31 Apr, 2013 [facility] [place] [facility] [address] [id number] [place] [address]- 6079 Apr, [facility] [place] [facility] [address] [id number] [place] [address]- 0286 28 Apr, 2013 [facility] [place] [facility] [address] [id number] [place] [address]- 2949 Apr, [facility] [place] [facility] [address] [id number] [place] [address]- 9575 Apr, [facility] [place] [facility] [address] [id number] [place] [address]- 8308 Apr, [facility] [place] [facility] [address] [id number] [place] [address]- 2561 Apr, [facility] [place] [facility] [address] [id number] [place] [address]- 9357 10 Apr, 2013 [facility] [place] [facility] [address] [id number] [place] [address]- 9794 Apr, [facility] [place] [facility] [address] [id number] [place] [address]- 0173 04 Apr, 2013 [facility] [place] [facility] [address] [id number] [place] [address]- 5724 04 Apr, 2013 [facility] [place] [facility] [address] [id number] [place] [address]- 5166 Apr, [facility] [place] [facility] [address] [id number] [place] [address]- 6967 Apr, [facility] [place] [facility] [address] [id number] [place] [address]- 1506 Mar, [facility] [place] [facility] [address] [id number] [place] [address]- 5156 Mar, [facility] [place] [facility] [address] [id number] [place] [address]- 2546 Mar, [facility] [place] [facility] [address] [id number] [place] [address]- 2595 Feb, [facility] [place] [facility] [address] [id number] [place] [address]- 8883 Feb, [facility] [place] [facility] [address] [id number] [place] [address]- 4003 Feb, [facility] [place] [facility] [address] [id number] [place] [address]- 4643 Feb, [facility] [place] [facility] [address] [id number] [place] [address] Feb, [facility] [place] [facility] [address] [id number] [place] [address] Feb, [facility] [place] [facility] [address] [id number] [place] [address] Feb, [facility] [place] [facility] [address] [id number] [place] [address] Feb, [facility] [place] [facility] [address] [id number] [place] [address] Feb, [facility] [place] [facility] [address] [id number] [place] [address] Feb, [facility] [place] [facility] [address] [id number] [place] [address] Jan, [facility] [place] [facility] [address] [id number] [place] [address] Jan, [facility] [place] [facility] [address] [id number] [place] [address] Jan, [facility] [address] [id number] [place] [address] Jan, [facility] [address] [id number] [place] [address] 4648 Jan, [facility] [address] [id number] [place] [address] Jan, [facility] [address] [id number] [place] [address] Jan, [facility] [address] [id number] [place] [address] 69[address] Jan, [facility] [address] [id number] [place] [address] Jan, [facility] [address] [id number] [place] [address] Jan, [facility] [address] [id number] [place] [address] Jan, [facility] [address] [id number] [place] [address] 17 Jan, 2013 [facility] [address] [id number] [place] [address] 16 Jan, 2013 [facility] [address] [id number], [place] [address] Jan, [facility] [place] [facility] [address] [id number], [place] [address] Jan, [facility] [place] [facility] [address] [id number] [place] [address] Jan, [facility] [place] [facility] [address] [id number] [place] [address] Jan, [facility] [place] [facility] [address] [facility] [id number], [place] [address] Jan, [facility] [place] [facility] [address] [id number] [place] [address] 1698 Jan, [facility] [address] [id number] [place] [address]596 Jan, [facility] [place] [facility] [address] [id number] [place] [address] Jan, [facility] [address] [id number] [place] [address]444 Dec, [facility] [place] [facility] [address] [id number] [place] [address] Dec, [facility] [place] [facility] [address] [id number] [place] [address] Dec, [facility] [place] [facility] [address] [id number] [place] [address] 9168 Dec, [facility] [place] [facility] [address] [facility] [id number] [place] [address] Dec, [facility] [place] [facility] [address] [id number] [place] [address] Dec, [facility] [place] [facility] [address] [id number] [place] [address] 6048 Dec, [facility] [place] [facility] [address] [facility] [id number] [place] [address] Dec, [facility] [place] [facility] [address] [id number] [place] [address]- 4667 Dec, [facility] [place] [facility] [address] [id number], [place] [address] Dec, [facility] [place] [facility] [address] [id number] [place] [address] Nov, [facility] [place] [facility] [address] [facility] [id number] [place] [address] 31 Nov, 2012 [facility] [place] [facility] [address] [id number], [place] [address] Nov, [facility] [place] [facility] [address] [id number] [place] [address] 1402 Nov, [facility] [place] [facility] [address] [id number] [place] [address] 47[address] Nov, [facility] [place] [facility] [address] [id number] [place] [address]- 2318 Nov, [facility] [place] [facility] [address] [id number] [place] [address]558 Nov, [facility] [place] [facility] [address] [id number] [place] [address]150 Nov, [facility] [place] [facility] [address] [id number] [place] [address] 57[address] Nov, [facility] [place] [facility] [address] [id number] [place] [address]- 2068 Nov, [facility] [place] [facility] [address] [id number] [place] [address] 3964 Oct, [facility] [place] [facility] [address] [id number] [place] [address]- 9688 Oct, [facility] [place] [facility] [address] [id number] [place] [address]92 Oct, [facility] [place] [facility] [address] [id number] [place] [address]- [address] 25 Oct, 2012 [facility] [place] [facility] [address] [id number] [place] [address]- [address]686 06 Oct, 2012 [facility] [place] [facility] [address] [id number] [place] [address]127 Sep, [facility] [place] [facility] [address] [id number] [place] [address] 8399 Sep, [facility] [place] [facility] [address] [id number] [place] [address] 5121 Aug, [facility] [place] [facility] [address] [id number] [place] [address] 8903 Aug, [facility] [address] [id number] [place] [address] Aug, [facility] [place] [facility] [address] [id number] [place] [address] Aug, [facility] [place] [facility] [address] [id number] [place] [address] Aug, [facility] [place] [facility] [address] [id number] [place] [address]- 1817 Aug, [facility] [place] [facility] [address] [id number] [place] [address]- 3604 Aug, [facility] [place] [facility] [address] [id number] [place] [address]- [address]482 Jul, [facility] [place] [facility] [address] [id number] [place] [address]- 2308 Jul, [facility] [place] [facility] [address] [id number] [place] [address]- [address] June, [facility] [place] [facility] [address] [address] [id number] [place] [address] June, [facility] [place] [facility] [address] [id number] [place] [address] June, [facility] [place] [facility] [address] [id number] [place] [address] 1554 June, [facility] [place] [facility] [address] [id number] [place] [address] 1500 June, [facility] [place] [facility] [address] [id number] [place] [address] June, [facility] [place] [facility] [address] [id number] [place] [address]53 June, [facility] [place] [facility] [address] [id number] [place] [address] 5602 June, [facility] [place] [facility] [address] [id number] [place] [address] 2546 June, [facility] [address] [id number] [place] [address] 3531 June, [facility] [address] [id number] [place] [address] 4916 June, [facility] [address] [id number] [place] [address] 5354 May, [facility] [address] [id number] [place] [address] 1577 May, [facility] [address] [id number] [place] [address] 3255 May, [facility] [address] [id number] [place] [address]- 3541 May, [facility] [address] [id number] [place] [address]- 5549 Apr, [facility] [address] [id number] [place] [address] 3677 Apr, [facility] [address] [id number] [place] [address] 6397 Apr, [facility] [address] [id number] [place] [address] 1862 Mar, [facility] [address] [id number] [place] [address] 4258 Mar, [facility] [address] [id number] [place] [address]- 7017 Feb, [facility] [address] [id number] [place] [address] 9193 Feb, [facility] [address] [id number] [place] [address]- 8886 Feb, [facility] [address] [id number] [place] [address]- 2958 Feb, [facility] [address] [id number] [place] [address]- 7868 16 Feb, 2012 [facility] [place] [facility] [address] [id number] [place] [address]- 4810 14 Feb, 2012 [facility] [place] [facility] [address] [id number] [place] [address]- 6731 08 Feb, 2012 [facility] [place] [facility] [address] [id number] [place] [address]- 3051 31 Jan, 2012 [facility] [address] [id number] [place] [address]- 0439 31 Jan, 2012 [facility] [place] [facility] [address] [id number] [place] [address]- 9923 28 Jan, 2012 [facility] [place] [facility] [address] [id number] [place] [address]- 0524 17 Jan, 2012 [facility] [place] [facility] [address] [id number] [place] [address]- 9389 17 Jan, 2012 [facility] [place] [facility] [address] [id number] [place] [address]- 4880 Jan, [facility] [place] [facility] [address] [id number] [place] [address]- 5147 Jan, [facility] [place] [facility] [address] [id number] [place] [address]- 4101 10 Jan, 2012 [facility] [place] [facility] [address] [id number] [place] [address]- 4391 10 Jan, 2012 [facility] [place] [facility] [address] [id number] [place] [address] 1973 Jan, [facility] [place] [facility] [address] [id number] [place] [address]- 2463 03 Jan, 2012 [facility] [place] [facility] [address] [id number] [place] [address]- 6235 19 Dec, 2011 [facility] [place] [facility] [address] [id number] [place] [address]- 5095 Dec, [facility] [place] [facility] [address] [id number] [place] [address]- 8026 Dec, [facility] [place] [facility] [address] [id number] [place] [address]- 1700 Dec, [facility] [place] [facility] [address] [id number] [place] [address]- 7303 Nov, [facility] [place] [facility] [address] [id number] [place] [address]- 8880 Nov, [facility] [place] [facility] [address] [id number] [place] [address]- 5475 Nov, [facility] [place] [facility] [address] [id number] [place] [address]- 1511 27 Oct, 2011 [facility] [place] [facility] [address] [id number] [place] [address]- 3354 24 Oct, 2011 [facility] [place] [facility] [address] [id number] [place] [address]- 5834 21 Oct, 2011 [facility] [place] [facility] [address] [id number] [place] [address]- 6227 10 Oct, 2011 [facility] [place] [facility] [address] [facility] [id number] [place] [address]- 8012 07 Oct, 2011 [facility] [place] [facility] [address] [id number] [place] [address]- 1364 Oct, [facility] [place] [facility] [address] [id number] [place] [address] 2542 Oct, [facility] [place] [facility] [address] [id number] [place] [address]- 2282 Sep, [facility] [place] [facility] [address] [id number] [place] [address]- 0380 Sep, [facility] [place] [facility] [address] [facility] [id number] [place] [address]- 5069 Sep, [facility] [place] [facility] [address] [id number] [place] [address]- 9825 Sep, [facility] [place] [facility] [address] [id number] [place] [address] 8209 Sep, [facility] [place] [facility] [address] [id number] [place] [address]- 0925 Aug, [facility] [place] [facility] [address] [id number] [place] [address]- 4877 Aug, [facility] [place] [facility] [address] [id number] [place] [address]- 7066 Aug, [facility] [place] [facility] [address] [id number] [place] [address]- 1049 Aug, [facility] [place] [facility] [address] [id number] [place] [address]- 5618 Aug, [facility] [place] [facility] [address] [id number] [place] [address]- 9798 Aug, [facility] [place] [facility] [address] [id number] [place] [address]- 4842 Aug, [facility] [place] [facility] [address] [id number] [place] [address]- 4446 Jul, [facility] [place] [facility] [address] [id number] [place] [address]- 7881 Jul, [facility] [place] [facility] [address] [id number] [place] [address]- 6265 Jul, [facility] [place] [facility] [address] [id number] [place] [address]- 9724 Jul, [facility] [place] [facility] [address] [id number] [place] [address]- 9201 Jul, [facility] [place] [facility] [address] [id number] [place] [address]- 2680 Jul, [facility] [place] [facility] [address] [id number] [place] [address]- 6915 Jul, [facility] [place] [facility] [address] [id number] [place] [address]- 4370 Jul, [facility] [place] [facility] [address] [id number] [place] [address]- 8445 Jul, [facility] [place] [facility] [address] [id number] [place] [address]- 2625 June, [facility] [place] [facility] [address] [id number] [place] [address]- 7962 June, [facility] [place] [facility] [address] [id number] [place] [address]- 0219 June, [facility] [place] [facility] [address] [id number] [place] [address]- 7408 June, [facility] [place] [facility] [address] [id number] [place] [address]- 1656 June, [facility] [place] [facility] [address] [id number] [place] [address]- 1307 June, [facility] [place] [facility] [address] [id number] [place] [address]- 1715 June, [facility] [place] [facility] [address] [id number] [place] [address]- 1494 June, [facility] [place] [facility] [address] [id number] [place] [address]- 6635 May, [facility] [place] [facility] [address] [id number] [place] [address]- 4698 23 May, 2011 [facility] [place] [facility] [address] [id number] [place] [address]- 3915 20 May, 2011 [facility] [place] [facility] [address] [id number] [place] [address]- 7637 19 May, 2011 [facility] [place] [facility] [address] [id number] [place] [address]- 3634 16 May, 2011 [facility] [place] [facility] [address] [id number] [place] [address]- 8519 16 May, 2011 [facility] [address] [id number] [place] [address]- 9886 02 May, 2011 [facility] [place] [facility] [address] [id number] [place] [address]- 0526 27 Apr, 2011 [facility] [address] [id number] [place] [address]- 8656 22 Apr, 2011 [facility] [place] [facility] [address] [id number] [place] [address] 2549 Apr, [facility] [address] [id number] [place] [address]- 5337 19 Apr, 2011 [facility] [place] [facility] [address] [id number] [place] [address]- 1336 Apr, [facility] [address] [id number] [place] [address]- 3745 Apr, [facility] [address] [id number] [place] [address]- 7651 Apr, [facility] [place] [facility] [address] [id number] [place] [address]- 0074 20 Mar, 2011 [facility] [address] [facility] [id number] [place] [address]- 7359 20 Mar, 2011 [facility] [place] [facility] [address] [id number] [place] [address]- 7036 14 Mar, 2011 [facility] [place] [facility] [address] [id number] [place] [address] 2546 13 Mar, 2011 [facility] [place] [facility] [address] [id number] [place] [address]- 9826 09 Mar, 2011 [facility] [place] [facility] [address] [facility] [id number] [place] [address]- 2546 08 Mar, 2011 [facility] [place] [facility] [address] [id number] [place] [address]- 9471 Mar, [facility] [address] [id number] [place] [address]- 7636 Feb, [facility] [address] [id number] [place] [address]- 5816 Feb, [facility] [address] [id number] [place] [address]- 4966 Feb, [facility] [address] [id number] [place] [address]- 2466 Feb, [facility] [address] [id number] [place] [address]- 1098 Feb, [facility] [address] [id number] [place] [address]- 2796 Feb, [facility] [address] [id number] [place] [address]- 7196 Feb, [facility] [address] [id number] [place] [address]- 2903 Feb, [facility] [address] [id number] [place] [address]- 5658 Feb, [facility] [address] [id number] [place] [address]- 1636 Feb, [facility] [address] [id number] [address]- 5248 Jan, [facility] [place] [facility] [address] [id number], [place] [address]- 4067 Jan, [facility] [place] [facility] [address] [id number] [place] [address]- 7375 Jan, [facility] [place] [facility] [address] [id number] [place] [address]- 1900 Jan, [facility] [place] [facility] [address] [id number] [place] [address]- 9416 Jan, [facility] [place] [facility] [address] [id number] [place] [address]- 9407 Jan, [facility] [place] [facility] [address] [id number] [place] [address]- 9823 15 Jan, 2011 [facility] [place] [facility] [address] [id number] [place] [address]- 1392 15 Jan, 2011 [facility] [place] [facility] [address] [id number] [place] [address]- 0885 08 Jan, 2011 [facility] [place] [facility] [address] [id number] [place] [address]- 3348 Jan, [facility] [place] [facility] [address] [id number] [place] [address]- 3546 Jan, [facility] [place] [facility] [address] [id number] [place] [address]- 1087 17 Dec, 2010 [facility] [place] [facility] [address] [id number] [place] [address]- 7333 17 Dec, 2010 [facility] [place] [facility] [address] [id number] [place] [address]- 4403 17 Dec, 2010 [facility] [place] [facility] [address] [id number] [place] [address]- 2741 16 Dec, 2010 [facility] [place] [facility] [address] [facility] [id number] [place] [address]- 8781 14 Dec, 2010 [facility] [place] [facility] [address] [id number] [place] [address]- 9287 09 Dec, 2010 [facility] [place] [facility] [address] [id number] [place] [address]- 2010 08 Dec, 2010 [facility] [place] [facility] [address] [id number] [place] [address]- 9824 07 Dec, 2010 [facility] [place] [facility] [address] [facility] [id number] [place] [address]- 2206 02 Dec, 2010 [facility] [place] [facility] [address] [id number] [place] [address]- 8700 31 Nov, 2010 [facility] [place] [facility] [address] [id number] [place] [address]- 9936 31 Nov, 2010 [facility] [place] [facility] [address] [id number] [place] [address]- 5839 27 Nov, 2010 [facility] [place] [facility] [address] [id number] [place] [address]- 7151 Nov, [facility] [place] [facility] [address] [id number] [place] [address]- 4428 24 Nov, 2010 [facility] [place] [facility] [address] [id number] [place] [address]- 9497 Nov, [facility] [place] [facility] [address] [id number] [place] [address]- 4918 Aug, [facility] [place] [facility] [address] [id number] [place] [address]- 1622 Feb, [facility] [place] [facility] [address] [id number] [place] [address]- 6887 14 Jan, 2010 [facility] [place] [facility] [address] [id number] [place] [address]- 6598 Jan, [facility] [place] [facility] [address] [id number] [place] [address]- 3583 Jan, [facility] [place] [facility] [address] [id number] [place] [address]- 8160 Jan, [facility] [place] [facility] [address] [id number] [place] [address]- 2531 Jan, [facility] [place] [facility] [address] [id number] [place] [address]- 8894 Dec, [facility] [place] [facility] [address] [id number] [place] [address]- 0663 Dec, [facility] [place] [facility] [address] [id number] [place] [address]- 1527 Dec, [facility] [place] [facility] [address] [id number] [place] [address]- 8206 Dec, [facility] [address] [facility] [id number] [place] [address]- 6678 Nov, [facility] [address] [facility] [id number], [place] [address]- 8981 Nov, [facility] [address] [facility] [id number] [place] [address]- 0825 Nov, IMMUNIZATIONS No Known Immunizations SOCIAL HISTORY [...]
--- OUTSIDE RECORDS SUMMARY | 2018-01-13 21:10 | XMS REPORT ---
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 Active 677333657 Problem Hypertension I10 Active 14731229 Problem Arthritis M19.90 Active 8744120 Problem 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 Active 69242658 Problem Anxiety F41.9 Active 15720521 Problem Unspecified episodic mood disorder F39 Active 89208301 Problem Left hip pain M25.552 Active 19673514 ALLERGIES No Information ENCOUNTERS Encounter Location Date Diagnosis [facility] [address] [id number] [id number] Aug, [facility] [address] [facility] [id number] [address] Aug, Arthritis M19.90 [facility] [address] [facility] [id number] [address] Aug, [facility] [address] [address] Aug, Obesity (BMI 30.0-34.9) E66.9 ; Unspecified episodic mood disorder F39 and Hypertension I10 [facility] [address] [id number] [address] Aug, Unspecified episodic mood disorder F39 [facility] [id number] [place] [address] 46872- 6645 Aug, [facility] [id number] [place] [address] 21634- 4433 Jul, Unspecified episodic mood disorder F39 [facility] [id number] [place] [address] 63479- 1193 Jul, [facility] [id number] [place] [address] 81262- 9218 Jul, Arthritis M19.90 [facility] [id number] [place] [address] 16792- 1870 Jul, Left hip pain M25.552 ; Hypertension I10 ; Other obesity due to excess calories E66.09 and Body mass index (BMI) of 34.0-34.9 in adult Z68.34 [facility] [id number] [place] [address] 05897- 2139 Jul, Unspecified episodic mood disorder F39 [facility] [id number] [place] [address] 56154- 0402 June, Gastroesophageal reflux disease, esophagitis presence not specified K21.9 [facility] [id number] [place] [address] 78349- 1573 June, [facility] [id number] [place] [address] 75828- 7181 June, [facility] [id number] [place] [address] 44390- 6853 June, Arthritis M19.90 [facility] [address] [address] 8[address] June, [facility] [address] [address] June, [facility] [address] [address] June, Unspecified episodic mood disorder F39 [facility] [id number] [place] [address] 43327- 5323 May, Unspecified episodic mood disorder F39 [facility] [id number] [place] [address] 89765- 1771 May, [facility] [id number] [place] [address] 28548- 6409 May, Arthritis M19.90 [facility] [id number] [place] [address] 95118 -1814 May, Dysuria R30.0 ; Abscess L02.91 and Acute cystitis without hematuria N30.00 [facility] [id number] [place] [address] 58576- 0486 May, Other disorder of impulse control F63.89 ; Unspecified episodic mood disorder F39 ; Combined drug dependence excluding opioids, 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 ; Anxiety F41.9 and Other psychoactive substance dependence, 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 [facility] [address] [address] May, [facility] [address] [place] [address] 87305- 6721 May, Other disorder of impulse control F63.89 ; Unspecified episodic mood disorder F39 ; Combined drug dependence excluding opioids, 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 ; Other psychoactive substance dependence, 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 and Anxiety F41.9 [facility] [address] [address] 95[address] May, Other chronic pain G89.29 ; Left hip pain M25.552 ; Hypertension I10 ; 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, 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 and Unspecified episodic mood disorder F39 [facility] [address] [place] [address] 40391- 7895 28 Apr, 2017 [facility] [address] [place] [address] 03187 -9713 Apr, Neck pain M54.2 ; Left hip pain M25.552 and Fall, initial encounter W19.XXXA [facility] [id number] [place] [address] 23537- 2061 Apr, Unspecified episodic mood disorder F39 ; Combined drug dependence excluding opioids, 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 ; Anxiety F41.9 ; Other psychoactive substance dependence, 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 and Other disorder of impulse control F63.89 [facility] [id number] [place] [address] 49226- 1373 Apr, [facility] [id number] [place] [address] 43504- 5973 Apr, Arthritis M19.90 and Unspecified episodic mood disorder F39 [facility] [id number] [place] [address] 29501- 5602 Apr, Unspecified episodic mood disorder F39 [facility] [address] [address] 5791 Apr, [facility] [id number] [place] [address] 17800- 5511 08 Apr, 2017 [facility] [id number] [place] [address] 45878- 2924 07 Apr, 2017 Unspecified episodic mood disorder F39 ; Combined drug dependence excluding opioids, 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 ; Anxiety F41.9 ; Other psychoactive substance dependence, 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 and Other disorder of impulse control F63.89 [facility] [id number] [place] [address] 63632- 5620 Mar, Unspecified episodic mood disorder F39 [facility] [address] [address] 0716 Mar, Gastroesophageal reflux disease, esophagitis presence not specified K21.9 [facility] [id number] [place] [address] 71800 2546 Mar, Arthritis M19.90 and Unspecified episodic mood disorder F39 [facility] [id number] [place] [address] 60916 2546 Feb, [facility] [id number] [place] [address] 25531 2546 Feb, [facility] [id number] [place] [address] 98728- 8216 Feb, [facility] [id number] [place] [address] 85559- 5196 Feb, Arthritis M19.90 [facility] [id number] [place] [address] 82225 254 Feb, Non-pressure chronic ulcer of right calf, 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 ; Unspecified episodic mood disorder F39 and Left hip pain M25.552 [facility] [address] [place] [address] 35716 2546 Feb, [facility] [address] [place] [address] 87605 2546 Feb, [facility] [address] [place] [address] 55401 2546 Jan, Arthritis M19.90 [facility] [address] [place] [address] 75259 2546 Jan, Left hip pain M25.552 and Non-pressure chronic ulcer of right calf, 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 [facility] [address] [address] 2546 Jan, Chronic hepatitis C without hepatic coma B18.2 [facility] [id number] [place] [address] 28270- 8876 Jan, Encounter for immunization Z23 ; Venous insufficiency ( chronic) (peripheral) I87.2 ; Non-pressure chronic ulcer of unspecified calf limited to breakdown of skin L97.201 and Gastroesophageal reflux disease, esophagitis presence not specified K21.9 [facility] [id number] [place] [address] 85958- 2556 Jan, [facility] [id number] [place] [address] 42923- 2547 Jan, Chronic hepatitis C without hepatic coma B18.2 and Encounter for immunization Z23 [facility] [address] 94946- 2916 Jan, Arthritis M19.90 [facility] [id number] [place] [address] 32849- 3216 Jan, [facility] [id number] [place] [address] 84193- 1672 Dec, [facility] [id number] [place] [address] 99282- 3616 Dec, Unspecified episodic mood disorder F39 [facility] [id number] [place] [address] 74126 2546 Dec, Arthritis M19.90 [facility] [id number] [place] [address] 82054 2546 Dec, Arthritis M19.90 [facility] [id number] [place] [address] 47245- 2542 Nov, [facility] [address] 43407- 2546 Nov, [facility] [id number] [place] [address] 00584- 2546 Nov, Other psychoactive substance dependence, 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 ; 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, 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 and Chronic hepatitis C without hepatic coma B18.2 [facility] [address] [place] [address] 59210- 6218 Nov, Arthritis M19.90 [facility] [id number] [place] [address] 14075 -8016 Oct, Partial thickness burn of abdomen, initial encounter T21.22XA [facility] [id number] [place] [address] 66411- 9852 Oct, [facility] [id number] [place] [address] 73678- 1304 Sep, Arthritis M19.90 [facility] [id number] [place] [address] 68624- 9900 Sep, [facility] [id number] [place] [address] 73810- 5055 Sep, [facility] [id number] [place] [address] 25163- 3618 Sep, Unspecified episodic mood disorder F39 ; Chronic hepatitis C without hepatic coma B18.2 and Left hip pain M25.552 [facility] [id number] [place] [address] 83149- 1338 Sep, Arthritis M19.90 and Left hip pain M25.552 [facility] [id number] [place] [address] 47967- 4245 Aug, [facility] [id number] [place] [address] 87509- 1944 Aug, [facility] [id number] [place] [address] 17748- 3708 Aug, Chronic hepatitis C without hepatic coma B18.2 [facility] [address] [address] 1908 Aug, [facility] [id number] [place] [address] 17687- 6052 Aug, Chronic hepatitis C without hepatic coma B18.2 [facility] [id number] [place] [address] 69384- 8230 Aug, 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, 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 [facility] [id number] [place] [address] 39184- 8903 Aug, [facility] [id number] [place] [address] 65025- 3527 Aug, Chronic hepatitis C without hepatic coma B18.2 and Hypertension I10 [facility] [id number] [place] [address] 10726- 0560 Jul, [facility] [id number] [place] [address] 06505- 4108 June, [facility] [id number] [place] [address] 71409- 5919 Apr, Fibromyalgia M79.7 ; Left hip pain M25.552 and Decubitus ulcer of sacral region, stage 1 L89.151 [facility] [id number] [place] [address] 94285- 2730 Apr, [facility] [id number] [place] [address] 83508- 3544 Apr, [facility] [id number] [place] [address] 04116- 8424 Feb, [facility] [id number] [place] [address] 40784- 9262 Dec, Anxiety F41.9 ; Combined drug dependence excluding opioids, 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 and Unspecified episodic mood disorder F39 [facility] [id number] [place] [address] 05394- 8038 Dec, [facility] [id number] [place] [address] 45788- 2971 Nov, [facility] [address] [place] [address]- 9339 Nov, [facility] [id number] [place] [address] 54922- 9990 Nov, Other disorder of impulse control F63.89 and Anxiety F41.9 [facility] [id number] [place] [address] 95483- 3989 21 Oct, 2015 [facility] [id number] [place] [address] 66046 -8425 14 Oct, 2015 Open wound of left thigh, initial encounter S71.102A [facility] [id number] [place] [address] 60156- 2404 Oct, [facility] [id number] [place] [address] 17387- 2146 Sep, Unspecified episodic mood disorder F39 ; Other disorder of impulse control 312.39 ; Combined drug dependence excluding opioids, 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 and Anxiety F41.9 [facility] [address] [place] [address] 21321- 4133 Sep, Other disorder of impulse control 312.39 ; Combined drug dependence excluding opioids, 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 ; Anxiety F41.9 and Unspecified episodic mood disorder F39 [facility] [address] [place] [address] 74255- 8864 Sep, Other chronic pain G89.29 [facility] [id number] [place] [address] 86478- 4132 Sep, [facility] [id number] [place] [address] 56610- 1548 Sep, [facility] [id number] [place] [address] 33901- 5431 Aug, [facility] [address] [place] [address] 27680- 7584 Aug, [facility] [id number] [place] [address] 01241- 8057 Aug, [facility] [address] [place] [address] 29067- 6306 Jul, [facility] [id number] [place] [address] 84411- 8869 Jul, [facility] [id number] [place] [address] 07959- 2590 Jul, [facility] [id number] [place] [address] 52069- 1561 Jul, Arthritis M19.90 ; Chronic hepatitis C without hepatic coma B18.2 and Left hip pain M25.552 [facility] [id number] [place] [address] 32038- 4101 Jul, Left knee pain M25.562 [facility] [id number] [place] [address] 60287- 7880 Jul, Combined drug dependence excluding opioids, 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 ; Anxiety F41.9 ; Other disorder of impulse control 312.39 and Unspecified episodic mood disorder F39 [facility] [id number] [place] [address] 70070- 3899 Jul, Left knee pain M25.562 [facility] [address] [place] [address] 23389- 7517 Jul, Left knee pain M25.562 and Left hip pain M25.552 [facility] [address] [place] [address] 66383- 9417 Jul, [facility] [address] [place] [address] 31769- 7068 June, [facility] [id number] [place] [address] 17858- 4056 June, Combinations of drug dependence excluding opioid type drug, unspecified abuse 304.80 ; Other disorder of impulse control 312.39 ; Unspecified episodic mood disorder F39 and Anxiety F41.9 [facility] [address] [address]- 3081 June, Other fatigue R53.83 ; Headache R51 and Left knee pain M25.562 [facility] [address] [place] [address] 48607- 3048 June, Unspecified episodic mood disorder F39 ; Combinations of drug dependence excluding opioid type drug, unspecified abuse 304.80 ; Other disorder of impulse control 312.39 and Anxiety F41.9 [facility] [id number] [place] [address] 27859- 3911 June, Anxiety F41.9 [facility] [id number] [place] [address] 87202- 1040 June, Pain in left knee M25.562 [facility] [address] [place] [address] 64142- 0196 June, Anxiety F41.9 and Combinations of drug dependence excluding opioid type drug, unspecified abuse 304.80 [facility] [address] [place] [address] 49980- 7598 June, Unspecified episodic mood disorder 296.90 ; Combinations of drug dependence excluding opioid type drug, unspecified abuse 304.80 and Other disorder of impulse control 312.39 [facility] [address] [place] [address] 07578- 3915 June, Anxiety F41.9 and Unspecified episodic mood disorder 296.90 [facility] [address] [address]- 5803 May, Arthritis M19.90 [facility] [address] [address]- 8191 May, Arthritis M19.90 [facility] [address] [place] [address] 04687- 2792 May, Anxiety F41.9 ; Combinations of drug dependence excluding opioid type drug, unspecified abuse 304.80 and Other disorder of impulse control 312.39 [facility] [address] [address]- 3954 18 May, 2015 Left knee pain M25.562 [facility] [address] [place] [address] 02175- 9550 14 May, 2015 Arthritis M19.90 [facility] [address] [address]- 5753 May, [facility] [id number] [place] [address] 52561- 0085 May, Anxiety F41.9 ; Unspecified episodic mood disorder 296.90 ; Combinations of drug dependence excluding opioid type drug, unspecified abuse 304.80 and Other disorder of impulse control 312.39 [address] [place] [address] 82928- 1627 May, Left knee pain M25.562 [facility] [id number] [place] [address] 32085- 7654 May, Left knee pain M25.562 ; Combinations of drug dependence excluding opioid type drug, unspecified abuse 304.80 ; Other disorder of impulse control 312.39 ; Fibromyalgia M79.7 ; Hypertension I10 ; Unspecified episodic mood disorder 296.90 and Left hip pain M25.552 [facility] [address] [address]- 2420 May, Unspecified episodic mood disorder 296.90 ; Other disorder of impulse control 312.39 ; Combinations of drug dependence excluding opioid type drug, unspecified abuse 304.80 and Anxiety F41.9 [facility] [id number] [address]- 0994 May, Left knee pain M25.562 ; Combinations of drug dependence excluding opioid type drug, unspecified abuse 304.80 ; Other disorder of impulse control 312.39 ; Fibromyalgia M79.7 ; Hypertension I10 ; Unspecified episodic mood disorder 296.90 and Left hip pain M25.552 [facility] [address] [place] [address] 75585- 3327 May, Anxiety F41.9 ; Unspecified episodic mood disorder 296.90 ; Other disorder of impulse control 312.39 and Combinations of drug dependence excluding opioid type drug, unspecified abuse 304.80 [facility] [address] [place] [address] 09254- 6635 30 Apr, 2015 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 and 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, implants and grafts, initial encounter T84.82XA [facility] [id number] [place] [address] 94826- 9694 Apr, Anxiety F41.9 ; Unspecified episodic mood disorder 296.90 ; Combinations of drug dependence excluding opioid type drug, unspecified abuse 304.80 and Other disorder of impulse control 312.39 [facility] [id number] [place] [address] 06585- 1133 Apr, Arthritis M19.90 [facility] [id number] [place] [address] 47165- 1419 Apr, Anxiety F41.9 ; Unspecified episodic mood disorder 296.90 ; Combinations of drug dependence excluding opioid type drug, unspecified abuse 304.80 and Other disorder of impulse control 312.39 [facility] [id number] [place] [address] 50585- 2686 17 Apr, 2015 Arthritis M19.90 [facility] [id number] [place] [address] 97474- 6207 15 Apr, 2015 [facility] [id number] [place] [address] [phone] 15 Apr, 2015 [facility] [id number] [place] [address] [phone] 14 Apr, 2015 Unspecified episodic mood disorder 296.90 ; Combinations of drug dependence excluding opioid type drug, unspecified abuse 304.80 ; Other disorder of impulse control 312.39 and Anxiety F41.9 [facility] [id number] [place] [address] [phone] 11 Apr, 2015 Left knee pain M25.562 [facility] [address] [id number] [address] Apr, [place] [id number] [place] [address] 59374- 4984 Mar, Unspecified episodic mood disorder 296.90 ; Anxiety F41.9 ; Other disorder of impulse control 312.39 and Combinations of drug dependence excluding opioid type drug, unspecified abuse 304.80 [place] [id number] [place] [address] 18869- 1959 Mar, Hyperpigmentation L81.9 [place] [id number] [place] [address] 89811- 8678 Mar, Arthritis M19.90 and Anxiety F41.9 [place] [id number] [place] [address] 76571- 6452 Mar, Unspecified episodic mood disorder F39 ; Combined drug dependence excluding opioids, 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 ; Other disorder of impulse control F63.89 and Anxiety F41.9 [place] [id number] [place] [address] 74785- 9480 12 Mar, 2015 Well woman exam Z01.419 ; Other fatigue R53.83 ; Hot flashes N95.1 ; Depression, unspecified depression type F32.9 and Body mass index (BMI) of 23.0-23.9 in adult Z68.23 [place] [id number] [place] [address] 68402- 0570 11 Mar, 2015 Unspecified episodic mood disorder 296.90 ; Other disorder of impulse control 312.39 and Anxiety F41.9 [place] [id number] [place] [address] 07016- 6091 11 Mar, 2015 Well woman exam Z01.419 [...] of breast Z12.39 and Limited mobility Z74.09 [place] [address] 59675- 9099 Mar, [place] [address] 48915- 3196 Mar, [address] [address]- 6539 Mar, [address] 11661- 8965 Mar, Other specified complication of internal orthopedic prosthetic devices, implants and grafts, initial encounter T84.89XA ; Fibromyalgia M79.7 ; Hypertension I10 ; Anemia D64.9 ; Insomnia G47.00 ; Anxiety F41.9 ; Arthritis M19.90 and Migraine G43.[address] 59198- 8345 Mar, [place] [address] 88523- 9943 Feb, [place] [address] 12599- 8517 Feb, Arthritis M19.90 and Anxiety F41.9 [place] [address] 08012- 0632 Feb, [place] [address] 41563- 7049 Feb, [place] [address] 48821- 0904 Feb, [address] [id number] [address]94 Feb, [facility] [id number] [place] [address] 55021- 8599 Feb, Anxiety F41.9 [facility] [id number] [place] [address] 82856- 1234 15 Feb, 2015 [facility] [id number] [place] [address] 88910- 3336 Feb, [facility] [id number] [place] [address] 28675- 2834 Feb, 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 and Fibromyalgia M79.7 [facility] [id number] [place] [address] 10059- 7898 Feb, [facility] [id number] [place] [address] 97919- 1833 Jan, [facility] [id number] [address] 1975 Jan, [facility] [id number] [place] [address] 03247- 9611 Jan, [facility] [address], [place] [address] 4996 24 Jan, 2015 [facility] [id number] [place] [address] 15445- 8097 16 Jan, 2015 [facility] [address] [address] 5398 08 Jan, 2015 [facility] [id number] [place] [address] 50381- 9895 Jan, [facility] [address], [place] [address]- 6357 07 Jan, 2015 [facility] [address], [place] [address] 5443 Dec, [facility] [address] [address] 2436 17 Dec, 2014 Left knee pain M25.562 [facility] [id number] [place] [address] 78977- 4999 Dec, Left knee pain M25.562 [facility] [id number] [place] [address] 84974- 9512 16 Dec, 2014 Fibromyalgia M79.7 ; Hypertension I10 and Arthritis M19.90 [facility] [id number] [place] [address] 69216- 1673 Dec, [facility] [id number] [place] [address] 45728- 5744 Dec, [facility] [id number] [place] [address] 36524- 5780 Dec, [facility] [id number] [place] [address] 45611- 1085 Dec, [facility] [id number] [place] [address] 65651- 7766 Nov, [facility] [id number] [place] [address] 95809- 7926 Nov, [facility] [id number] [place] [address] 80740- 6753 Nov, [facility] [id number] [place] [address] 33055- 5314 Nov, Hypertension I10 [facility] [address] [address]- 8577 23 Oct, 2014 [facility] [id number] [place] [address] 12356- 8740 17 Oct, 2014 [facility] [address], [place] [address]- 4820 Oct, [facility] [id number] [place] [address] 32094- 0668 Oct, [facility] [address] [id number] [place] [address]552 Oct, [facility] [address] [id number] [place] 5583 Sep, [facility] [address] [id number] [place] 0596 Sep, [facility] [address] [id number] 7131 Sep, Hip pain associated with recalled total hip arthroplasty hardware 996.77 [facility] [address] [id number] [place] [address]- 6477 Sep, [facility] [address] [id number], [place] [address]- 7362 Sep, [facility] [address] [facility] [id number] [address]- 4298 Sep, [facility] [address] [id number] [address]- 6782 Aug, [facility] [address] [facility] [id number] [place] [address]- 8841 Jul, [facility] [address] [facility] [id number], [place] [address]- 1861 June, [facility] [address] [id number] [address]- 0539 June, [facility] [address] [id number], [place] [address]- 6192 June, [facility] [address] [id number], [place] [address]- 3939 June, [facility] [address] [facility] [id number] [address]- 8816 June, [facility] [address] [id number] [address]- 7526 June, [facility] [place] [facility] [address] [id number] [place] [address]- 8875 30 May, 2014 [facility] [place] [facility] [address] [id number] [place] [address]- 3237 14 May, 2014 [facility] [place] [facility] [address] [id number] [place] [address]- 9106 May, [facility] [place] [facility] [address] [id number] [place] [address]- 1145 30 Apr, 2014 [facility] [place] [facility] [address] [id number] [place] [address]- 5083 30 Apr, 2014 [facility] [place] [facility] [address] [id number] [place] [address]- 8449 Apr, [facility] [place] [facility] [address] [id number] [place] [address]- 1277 Apr, [facility] [place] [facility] [address] [id number] [place] [address]- 7614 Apr, [facility] [place] [facility] [address] [id number] [place] [address]- 5919 Apr, [facility] [place] [facility] [address] [id number] [place] [address]- 7044 Apr, [facility] [place] [facility] [address] [id number] [place] [address]- 9244 Apr, [facility] [place] [facility] [address] [id number] [place] [address]- 6626 Apr, [facility] [place] [facility] [address] [id number] [place] [address]- 3883 Apr, [facility] [place] [facility] [address] [id number] [place] [address]- 9676 Apr, [facility] [place] [facility] [address] [id number] [place] [address]- 6036 Mar, [facility] [place] [facility] [address] [id number] [place] [address]- 1027 Mar, 2014 [facility] [place] [facility] [address] [id number] [place] [address]- 0230 16 Mar, 2014 [facility] [place] [facility] [address] [id number] [place] 5606 16 Mar, 2014 [facility] [place] [facility] [address] [id number] [place] [address]- 8396 Mar, [facility] [place] [facility] [address] [id number] [place] [address]- 4905 Mar, [facility] [place] [facility] [address] [id number] [place] [address]- 1493 Feb, [facility] [place] [facility] [address] [id number] [place] [address]- 2418 Feb, [facility] [place] [facility] [address] [id number] [place] [address]- 9216 Feb, [facility] [place] [facility] [address] [id number] [place] [address]- 2577 Feb, [facility] [place] [facility] [address] [id number] [place] [address]- 1379 Jan, [facility] [place] [facility] [address] [facility] [id number] [place] [address]- 3309 Jan, [facility] [place] [facility] [address] [id number] [place] [address]- 7360 Jan, [facility] [place] [facility] [address] [id number] [place] [address]- 6204 Jan, [facility] [place] [facility] [address] [id number] [place] [address]- 7491 Dec, [facility] [place] [facility] [address] [id number] [place] [address]- 5073 Dec, [facility] [place] [facility] [address] [id number] [place] [address]- 9945 Dec, [facility] [place] [facility] [address] [id number] [place] [address]- 9096 Dec, [facility] [place] [facility] [address] [id number] [place] [address]- 2594 Dec, [facility] [place] [facility] [address] [id number] [place] [address]- 8798 Dec, [facility] [place] [facility] [address] [id number] [place] [address]- 6795 Dec, [facility] [place] [facility] [address] [id number] [place] [address]- 7115 Dec, [facility] [place] [facility] [address] [id number] [place] [address]- 0457 Dec, [facility] [place] [facility] [address] [id number] [place] [address]- 0308 Dec, [facility] [place] [facility] [address] [id number] [place] [address]- 1393 Dec, [facility] [place] [facility] [address] [id number] [place] [address]- 4302 Nov, [facility] [place] [facility] [address] [id number] [place] [address]- 9544 Nov, [facility] [place] [facility] [address] [id number] [place] [address]- 4255 Nov, [facility] [place] [facility] [address] [id number] [place] [address]- 8160 Nov, [facility] [place] [facility] [address] [id number] [place] [address]- 4389 Nov, [facility] [place] [facility] [address] [id number] [place] [address]- 6717 15 Nov, 2013 [facility] [place] [facility] [address] [id number] [place] [address]- 2905 15 Nov, 2013 [facility] [place] [facility] [address] [id number] [place] [address]- 3459 15 Nov, 2013 [facility] [place] [facility] [address] [id number] [place] [address]- 5723 15 Nov, 2013 [facility] [place] [facility] [address] [id number] [place] [address]- 6471 14 Nov, 2013 [facility] [place] [facility] [address] [id number] [place] [address]- 2189 14 Nov, 2013 [facility] [place] [facility] [address] [id number] [place] [address]- 9497 14 Nov, 2013 [facility] [place] [facility] [address] [id number] [place] [address]- 2267 14 Nov, 2013 [facility] [place] [facility] [address] [id number] [place] [address]- 8002 13 Nov, 2013 [facility] [place] [facility] [address] [id number] [place] [address]- 1442 13 Nov, 2013 [facility] [place] [facility] [address] [id number] [place] [address]- 1194 11 Nov, 2013 [facility] [place] [facility] [address] [id number] [place] [address]- 2540 11 Nov, 2013 [facility] [place] [facility] [address] [id number] [place] [address]- 5087 07 Nov, 2013 [facility] [place] [facility] [address] [id number], [place] [address]- 9031 07 Nov, 2013 [facility] [place] [facility] [address] [id number] [address]- 1815 07 Nov, 2013 [facility] [place] [facility] [address] [id number] [place] [address]- 1369 07 Nov, 2013 [facility] [place] [facility] [address] [id number], [place] [address]- 6655 30 Oct, 2013 [facility] [place] [facility] [address] [id number] [place] [address]- 9438 30 Oct, 2013 [facility] [place] [facility] [address] [id number] [place] [address]- 3938 26 Oct, 2013 [facility] [place] [facility] [address] [id number] [place] [address]- 7593 26 Oct, 2013 [facility] [place] [facility] [address] [id number] [place] [address]- 5063 22 Oct, 2013 [facility] [place] [facility] [address] [id number] [place] [address]- 5108 22 Oct, 2013 [facility] [place] [facility] [address] [id number] [place] [address]- 5858 18 Oct, 2013 [facility] [place] [facility] [address] [id number] [place] [address]- 6444 18 Oct, 2013 [facility] [place] [facility] [address] [id number] [place] [address]- 7454 18 Oct, 2013 [facility] [place] [facility] [address] [id number] [place] [address]- 5712 18 Oct, 2013 [facility] [place] [facility] [address] [id number] [place] [address]- 5863 12 Oct, 2013 [facility] [place] [facility] [address] [id number] [place] [address]- 3103 Oct, 2013 [facility] [place] [facility] [address] [id number] [place] [address]- 9379 Oct, 2013 [facility] [place] [facility] [address] [id number] [place] [address]- 2543 Oct, 2013 [facility] [place] [facility] [address] [id number] [place] [address]- 6411 Sep, [facility] [place] [facility] [address] [id number] [place] [address]- 7305 Sep, [facility] [place] [facility] [address] [id number] [place] [address]- 6669 Sep, [facility] [place] [facility] [address] [id number] [place] [address]- 8513 Sep, [facility] [place] [facility] [address] [id number] [place] [address]- 5116 Sep, [facility] [place] [facility] [address] [id number] [place] [address]- 2874 Sep, [facility] [place] [facility] [address] [id number] [place] [address]- 0306 Sep, [facility] [place] [facility] [address] [id number] [place] [address]- 8167 Sep, [facility] [place] [facility] [address] [id number] [place] [address]- 4756 Sep, [facility] [place] [facility] [address] [id number] [place] [address]- 0334 Sep, [facility] [place] [facility] [address] [id number] [place] [address]- 3236 Sep, [facility] [place] [facility] [address] [id number] [place] [address]- 3748 Sep, [facility] [place] [facility] [address] [id number] [place] [address]- 9659 Sep, [facility] [place] [facility] [address] [id number] [place] [address]- 8136 Sep, [facility] [place] [facility] [address] [id number] [place] [address]- 6439 Sep, [facility] [place] [facility] [address] [id number] [place] [address]- 7354 Sep, [facility] [place] [facility] [address] [id number] [place] [address]- 4612 Sep, [facility] [place] [facility] [address] [id number] [place] [address]- 9558 Sep, [facility] [place] [facility] [address] [id number] [place] [address]- 4168 Aug, [facility] [place] [facility] [address] [id number] [place] [address]- 7692 Aug, [facility] [place] [facility] [address] [id number] [place] [address]- 7490 Aug, [facility] [place] [facility] [address] [id number] [place] [address]- 0237 Aug, [facility] [place] [facility] [address] [id number] [place] [address]- 9502 Aug, [facility] [place] [facility] [address] [id number] [place] [address]- 8980 Aug, [facility] [place] [facility] [address] [id number] [place] [address]- 5343 Jul, [facility] [place] [facility] [address] [id number] [place] [address]- 8923 Jul, [facility] [place] [facility] [address] [id number] [place] [address]- 2578 Jul, [facility] [place] [facility] [address] [id number] [place] [address]- 7937 Jul, [facility] [place] [facility] [address] [id number] [place] [address]- 0850 June, [facility] [place] [facility] [address] [id number] [place] [address]- 9975 June, [facility] [place] [facility] [address] [id number] [place] [address]- 4839 June, [facility] [place] [facility] [address] [id number] [place] [address]- 0525 June, [facility] [place] [facility] [address] [id number] [place] [address]- 1290 June, [facility] [place] [facility] [address] [id number] [place] [address]- 8889 June, [facility] [place] [facility] [address] [id number] [place] [address]- 7667 June, [facility] [place] [facility] [address] [id number] [place] [address]- 9250 29 May, 2013 [facility] [place] [facility] [address] [id number] [place] [address]- 2746 29 May, 2013 [facility] [place] [facility] [address] [id number] [place] [address]- 2986 May, [facility] [place] [facility] [address] [id number] [place] [address]- 4046 May, [facility] [place] [facility] [address] [id number] [place] [address]- 2021 May, [facility] [place] [facility] [address] [id number] [place] [address]- 3084 May, [facility] [place] [facility] [address] [id number] [place] [address]- 2449 31 Apr, 2013 [facility] [place] [facility] [address] [id number] [place] [address]- 2612 31 Apr, 2013 [facility] [place] [facility] [address] [id number] [place] [address]- 4786 28 Apr, 2013 [facility] [place] [facility] [address] [id number] [place] [address]- 3363 28 Apr, 2013 [facility] [place] [facility] [address] [id number] [place] [address]- 0210 14 Apr, 2013 [facility] [place] [facility] [address] [id number] [place] [address]- 2281 14 Apr, 2013 [facility] [place] [facility] [address] [id number] [place] [address]- 3544 12 Apr, 2013 [facility] [place] [facility] [address] [id number] [place] 9316 12 Apr, 2013 [facility] [place] [facility] [address] [id number] [place] [address]- 8448 10 Apr, 2013 [facility] [place] [facility] [address] [id number] [place] [address]- 3891 Apr, [facility] [place] [facility] [address] [id number] [place] [address]- 9855 Apr, [facility] [place] [facility] [address] [id number] [place] [address]- 9376 Apr, [facility] [place] [facility] [address] [id number] [place] [address] Apr, [facility] [place] [facility] [address] [id number] [place] [address] Apr, [facility] [place] [facility] [address] [id number] [place] [address] Mar, [facility] [place] [facility] [address] [id number] [place] [address] Mar, [facility] [place] [facility] [address] [id number] [place] [address] Mar, [facility] [place] [facility] [address] [id number] [place] [address] Feb, [facility] [place] [facility] [address] [id number] [place] [address] Feb, [facility] [place] [facility] [address] [id number] [place] [address] Feb, [facility] [place] [facility] [address] [id number] [place] [address] Feb, [facility] [place] [facility] [address] [id number] [place] [address] Feb, [facility] [place] [facility] [address] [id number] [place] [address] Feb, [facility] [place] [facility] [address] [id number] [place] [address] Feb, [facility] [place] [facility] [address] [id number] [place] [address] Feb, [facility] [place] [facility] [address] [id number] [place] [address] Feb, [facility] [address] [id number] [place] [address] 164[address] Feb, [facility] [address] [id number] [place] [address] Jan, [facility] [address] [id number] [place] [address] 28[address] Jan, [facility] [address] [id number] [place] [address] Jan, [facility] [address] [id number] [place] [address] Jan, [facility] [address] [id number] [place] [address] 2474 Jan, [facility] [address] [id number] [place] [address] 95[address] Jan, [facility] [address] [id number] [place] [address] Jan, [facility] [address] [id number] [place] [address] Jan, [facility] [address] [id number] [place] [address] 84[address] Jan, [facility] [address] [id number] [place] [address] 19 Jan, 2013 [facility] [address] [id number] [place] [address] 17 Jan, 2013 [facility] [address] [id number] [place] [address] 17 Jan, 2013 [facility] [address] [id number] [place] [address]56 16 Jan, 2013 [facility] [address] [id number] [place] [address] 89[address] Jan, [facility] [address] [id number] [place] [address] 36[address] Jan, [facility] [place] [facility] [address] [id number] [place] [address] Jan, [facility] [place] [facility] [address] [id number] [place] [address] Jan, [facility] [place] [facility] [address] [id number] [place] [address] Jan, [facility] [place] [facility] [address] [id number] [place] [address] 1707 Jan, [facility] [place] [facility] [address] [id number] [place] [address] 9108 Jan, [facility] [place] [facility] [address] [id number] [place] [address] Jan, [facility] [place] [facility] [address] [id number], [place] [address] Dec, [facility] [place] [facility] [address] [id number] [place] [address] Dec, [facility] [place] [facility] [address] [id number], [place] [address] Dec, [facility] [place] [facility] [address] [id number], [place] [address] Dec, [facility] [place] [facility] [address] [id number], [place] [address] Dec, [facility] [place] [facility] [address] [id number], [place] [address] Dec, [facility] [place] [facility] [address] [id number] [address] Dec, [facility] [place] [facility] [address] [id number], [place] [address] Dec, [facility] [place] [facility] [address] [id number], [place] [address] Dec, [facility] [place] [facility] [address] [id number] [place] [address] 92[address] Dec, [facility] [place] [facility] [address] [id number] [place] [address] 60[address] Nov, [facility] [place] [facility] [address] [id number] [place] [address] 9410 Nov, [facility] [place] [facility] [address] [id number] [place] [address]84 Nov, [facility] [place] [facility] [address] [id number] [place] [address] 2005 Nov, [facility] [place] [facility] [address] [id number] [place] [address] 0738 Nov, [facility] [place] [facility] [address] [id number] [place] [address] 68[address] Nov, [facility] [place] [facility] [address] [id number] [place] [address]- 4489 Nov, [facility] [place] [facility] [address] [id number] [place] [address] 4[address] Nov, [facility] [place] [facility] [address] [facility] [id number], [place] [address] Nov, [facility] [place] [facility] [address] [id number], [place] [address] Nov, [facility] [place] [facility] [address] [id number], [place] [address] 74[address] Oct, [facility] [place] [facility] [address] [id number] [place] [address] 8110 Oct, [facility] [place] [facility] [address] [id number] [place] [address] 2850 Oct, [facility] [place] [facility] [address] [facility] [id number] [place] [address]- [address] 25 Oct, 2012 [facility] [place] [facility] [address] [id number] [place] [address]46 Oct, [facility] [address] [id number] [place] [address]687 Sep, [facility] [place] [facility] [address] [id number] [place] [address] Sep, [facility] [place] [facility] [address] [id number] [place] [address] Aug, [facility] [place] [facility] [address] [id number] [place] [address]- 1461 Aug, [facility] [place] [facility] [address] [id number] [place] [address]- [address]70 Aug, [facility] [place] [facility] [address] [id number] [place] [address] Aug, [facility] [place] [facility] [address] [id number] [place] [address] Aug, [facility] [place] [facility] [address] [id number] [place] [address] Aug, [facility] [place] [facility] [address] [id number] [place] [address] Aug, [facility] [place] [facility] [address] [id number] [place] [address] 5[address] Jul, [facility] [place] [facility] [address] [id number] [place] [address] 7286 Jul, [facility] [place] [facility] [address] [id number] [place] [address] June, [facility] [place] [facility] [address] [id number] [place] [address] June, [facility] [place] [facility] [address] [id number] [place] [address] 8846 June, [facility] [place] [facility] [address] [id number] [place] [address] 1122 June, [facility] [address] [id number] [place] [address] 9637 June, [facility] [address] [id number] [place] [address] 2571 June, [facility] [address] [id number] [place] [address] June, [facility] [address] [id number] [place] [address] 5215 June, [facility] [address] [id number] [place] [address]- 8759 June, [facility] [address] [id number] [place] [address] 3742 June, [facility] [address] [id number] [place] [address] 7401 June, [facility] [address] [id number] [place] [address]- 5258 May, [facility] [address] [id number] [place] [address]- 2559 May, [facility] [address] [id number] [place] [address]- 0154 May, [facility] [place] [facility] [address] [id number] [place] [address]- 8576 May, [facility] [place] [facility] [address] [id number] [address] Apr, [facility] [place] [facility] [address] [id number] [place] [address]- 0272 Apr, [facility] [place] [facility] [address] [id number] [place] [address]- 5359 Apr, [facility] [place] [facility] [address] [id number] [place] [address] 9725 Mar, [facility] [place] [facility] [address] [id number] [place] [address]- 4880 11 Mar, 2012 [facility] [address] [id number] [place] [address] 0534 Feb, [facility] [address] [id number] [place] [address]- 6171 Feb, [facility] [address] [id number] [place] [address] 9126 Feb, [facility] [address] [id number] [place] [address]- 9542 Feb, [facility] [address] [id number] [place] [address]- 0436 16 Feb, 2012 [facility] [address] [id number] [place] [address]- 8166 Feb, [facility] [address] [id number] [place] [address]- 4346 Feb, [facility] [address] [id number] [place] [address]- 4806 Jan, [facility] [address] [id number] [place] [address]- 4010 31 Jan, 2012 [facility] [address] [id number] [place] [address]- 7144 28 Jan, 2012 [facility] [address] [id number] [place] [address]- 7356 17 Jan, 2012 [facility] [address] [id number] [place] [address] 17 Jan, 2012 [facility] [address] [id number] [place] [address]- 5252 Jan, [facility] [address] [id number] [place] [address]- 2544 Jan, [facility] [address] [id number] [place] [address]- 7269 Jan, [facility] [place] [facility] [address] [id number] [place] [address]- 0729 Jan, [facility] [place] [facility] [address] [id number] [place] [address] Jan, [facility] [place] [facility] [address] [id number] [place] [address]- 3881 Jan, [facility] [place] [facility] [address] [id number] [place] [address]- 8918 Dec, [facility] [place] [facility] [address] [id number] [place] [address]- 8495 Dec, [facility] [place] [facility] [address] [id number] [place] [address]- 5033 Dec, [facility] [place] [facility] [address] [id number] [place] [address]- 7333 Dec, [facility] [place] [facility] [address] [id number] [place] [address]- 3827 Nov, [facility] [place] [facility] [address] [id number] [place] [address]- 0347 Nov, [facility] [place] [facility] [address] [id number] [place] [address]- 3318 Nov, [facility] [place] [facility] [address] [id number] [place] [address]- 5162 27 Oct, 2011 [facility] [place] [facility] [address] [id number] [place] [address]- 0223 24 Sep2011 [facility] [place] [facility] [address] [id number] [place] [address]- 0080 21 Oct, 2011 [facility] [place] [facility] [address] [id number] [place] [address]- 0729 10 Oct, 2011 [facility] [place] [facility] [address] [id number] [place] [address] 07 Oct, 2011 [facility] [place] [facility] [address] [id number] [place] [address]- 0345 Oct, [facility] [place] [facility] [address] [id number] [place] [address]- 0388 Oct, [facility] [place] [facility] [address] [id number] [place] [address]- 0459 Sep, [facility] [place] [facility] [address] [id number] [place] [address]- 9976 Sep, [facility] [place] [facility] [address] [id number] [place] [address]- 1410 Sep, [facility] [place] [facility] [address] [id number] [place] [address]- 7672 Sep, [facility] [place] [facility] [address] [id number] [place] [address]- 9716 Sep, [facility] [place] [facility] [address] [id number] [place] [address]- 8330 Aug, [facility] [place] [facility] [address] [id number] [place] [address]- 1740 Aug, [facility] [place] [facility] [address] [id number] [place] [address]- 9945 Aug, [facility] [place] [facility] [address] [id number] [place] [address]- 4263 Aug, [facility] [place] [facility] [address] [id number] [place] [address]- 7980 Aug, [facility] [place] [facility] [address] [id number] [place] [address]- 0763 Aug, [facility] [place] [facility] [address] [id number] [place] [address]- 2512 Aug, [facility] [place] [facility] [address] [id number] [place] [address]- 9404 Jul, [facility] [place] [facility] [address] [id number] [place] [address]- 8244 Jul, [facility] [place] [facility] [address] [id number] [place] [address]- 3972 22 Jul, 2011 [facility] [address] [id number] [place] [address]- 4954 Jul, [facility] [place] [facility] [address] [id number] [place] [address]- 0046 Jul, [facility] [address] [id number] [place] [address]- 2709 Jul, [facility] [place] [facility] [address] [id number] [place] [address]- 3392 07 Jul, 2011 [facility] [address] [id number] [place] [address]- 4565 Jul, [facility] [address] [id number] [place] [address]- 8021 Jul, [facility] [address] [id number] [place] [address]- 3652 June, [facility] [address] [id number] [place] [address]- 5557 June, [facility] [address] [id number] [place] [address]- 1569 June, [facility] [address] [id number] [place] [address]- 3009 June, [facility] [place] [facility] [address] [id number] [place] [address]- 0882 June, [facility] [address] [id number] [place] [address]- 1676 June, [facility] [place] [facility] [address] [id number] [place] [address]- 5757 June, [facility] [place] [facility] [address] [id number] [place] [address]- 6476 June, [facility] [place] [facility] [address] [id number] [place] [address]- 0496 May, [facility] [place] [facility] [address] [id number] [place] [address]- 6644 May, [facility] [place] [facility] [address] [id number] [place] [address]- 6336 May, [facility] [place] [facility] [address] [id number] [place] [address]- 8554 May, [facility] [place] [facility] [address] [id number] [place] [address]- 2483 May, [facility] [place] [facility] [address] [id number] [place] [address]- 6392 May, [facility] [place] [facility] [address] [id number] [place] [address]- 2979 May, [facility] [place] [facility] [address] [id number] [place] [address]- 5197 Apr, [facility] [place] [facility] [address] [id number] [place] [address]- 6022 Apr, [facility] [place] [facility] [address] [id number] [place] [address]- 2192 Apr, [facility] [place] [facility] [address] [id number] [place] [address]- 3703 Apr, [facility] [place] [facility] [address] [id number] [place] [address]- 8947 Apr, [facility] [place] [facility] [address] [id number] [place] [address]- 7383 Apr, [facility] [place] [facility] [address] [id number] [place] [address]- 3260 Apr, [facility] [place] [facility] [address] [id number] [place] [address]- 7677 Mar, [facility] [place] [facility] [address] [id number] [place] [address]- 7111 Mar, [facility] [place] [facility] [address] [id number] [place] [address]- 4303 14 Mar, 2011 [facility] [address] [id number] [place] [address]- 3516 13 Mar, 2011 [facility] [address] [id number] [place] [address] 2546 09 Mar, 2011 [facility] [address] [id number] [place] [address]- 4856 Mar, [facility] [address] [id number] [place] [address] 2543 Mar, [facility] [address] [id number] [place] [address]- 7412 Feb, [facility] [address] [id number] [place] [address]- 6971 Feb, [facility] [address] [id number] [place] [address]- 5101 Feb, [facility] [address] [id number] [place] [address]- 9513 Feb, [facility] [address] [id number] [address]- 6249 Feb, [facility] [address] [facility] [id number] [place] [address]- 1852 Feb, [facility] [address] [id number] [place] [address]- 3255 Feb, [facility] [address] [id number] [place] [address]- 9552 Feb, [facility] [address] [id number] [place] [address]- 9609 Feb, [facility] [address] [id number] [place] [address]- 5896 Feb, [facility] [address] [id number] [place] 8765 Jan, [facility] [place] [facility] [address] [id number] [place] [address]- 1296 Jan, [facility] [place] [facility] [address] [id number] [place] [address]- 6584 Jan, [facility] [place] [facility] [address] [id number] [place] [address]- 5998 Jan, [facility] [place] [facility] [address] [id number] [place] [address]- 3138 Jan, [facility] [place] [facility] [address] [id number] [place] [address]- 1099 Jan, [facility] [place] [facility] [address] [id number] [place] [address]- 1193 Jan, [facility] [place] [facility] [address] [id number] [place] [address]- 6048 Jan, [facility] [place] [facility] [address] [id number] [place] [address]- 5367 Jan, [facility] [place] [facility] [address] [id number] [place] [address]- 4038 Jan, [facility] [place] [facility] [address] [id number] [place] [address]- 2356 Jan, [facility] [place] [facility] [address] [id number], [place] [address]- 4023 17 Dec, 2010 [facility] [place] [facility] [address] [id number], [place] [address]- 5536 17 Dec, 2010 [facility] [place] [facility] [address] [id number] [place] [address]- 5120 17 Dec, 2010 [facility] [place] [facility] [address] [id number] [place] [address]- 2812 16 Dec, 2010 [facility] [place] [facility] [address] [id number], [place] [address]- 1600 14 Dec, 2010 [facility] [place] [facility] [address] [id number], [place] [address]- 3857 Dec, [facility] [place] [facility] [address] [id number] [place] [address]- 2454 Dec, [facility] [place] [facility] [address] [id number] [place] [address]- 8045 Dec, [facility] [place] [facility] [address] [facility] [id number] [place] [address]- 2488 Dec, [facility] [place] [facility] [address] [id number] [place] [address]- 7847 Nov, [facility] [place] [facility] [address] [id number] [place] [address], [place] [address]- 1720 Nov, [facility] [place] [facility] [address] [id number] [place] [address]- 8562 Nov, [facility] [place] [facility] [address] [facility] [id number] [place] [address]- 1831 Nov, [facility] [place] [facility] [address] [id number] [place] [address]- 9009 24 Nov, 2010 [facility] [place] [facility] [address] [facility] [id number] [place] [address]- 4535 Nov, [facility] [place] [facility] [address] [facility] [id number] [place] [address]- 0297 Aug, [facility] [place] [facility] [address] [id number], [place] [address]- 7874 14 Feb, 2010 [facility] [place] [facility] [address] [id number], [place] [address]- 3243 14 Jan, 2010 [facility] [place] [facility] [address] [id number] [place] [address]- 8755 Jan, [facility] [place] [facility] [address] [facility] [id number] [place] [address]- 6127 Jan, [facility] [place] [facility] [address] [facility] [id number] [place] 6405 Jan, [facility] [place] [facility] [address] [id number] [address]- 5218 Jan, [facility] [address] [id number] [address]10 Dec, [facility] [id number] [address] 9124 Dec, [facility] [id number] [address]- 8563 Dec, [facility] [id number] [address]- 3893 Dec, [facility] [id number] 9911 Nov, [facility] [id number] [address]- 6920 Nov, [facility] [id number] [address] 6518 Nov, IMMUNIZATIONS No Known Immunizations SOCIAL HISTORY Never Assessed REASON FOR VISIT requesting appt PLAN OF CARE VITAL SIGNS MEDICATIONS Unknown [...]
--- OUTSIDE RECORDS SUMMARY | 2018-01-13 21:11 | XMS REPORT ---
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 Active 592903150 Problem Hypertension I10 Active 36308329 Problem Arthritis M19.90 Active 9250186 Problem Other 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 Active 69494773 Problem Anxiety F41.9 Active 47661162 Problem Unspecified episodic mood disorder F39 Active 62085446 Problem Left hip pain M25.552 Active 38080330 ALLERGIES Substance Reaction Event Type Date Status Propranolol HCl chest pain, headache Drug Allergy Apr, Active Bactrim unknown Drug Allergy Apr, Active Penicillins unknown Non Drug Allergy Apr, Active ENCOUNTERS Encounter Location Date Diagnosis [facility] [address] [id number] [id number] Aug, [facility] [address] [facility] [id number] [place] [address] 02109- 9250 Aug, Arthritis M19.90 [facility] [id number] [place] [address] 17023- 6769 Aug, [facility] [id number] [place] [address] 81623- 7971 Aug, Obesity (BMI 30.0-34.9) E66.9 ; Unspecified episodic mood disorder F39 and Hypertension I10 [facility] [id number] [place] [address] 06496- 0994 Aug, Unspecified episodic mood disorder F39 [facility] [id number] [place] [address] 89102- 0123 Aug, [facility] [id number] [place] [address] 43046- 0111 Jul, Unspecified episodic mood disorder F39 [facility] [id number] [place] [address] 26568- 7152 Jul, [facility] [id number] [place] [address] 64993- 8044 Jul, Arthritis M19.90 [facility] [id number] [place] [address] 11248- 0784 Jul, Left hip pain M25.552 ; Hypertension I10 ; Other obesity due to excess calories E66.09 and Body mass index (BMI) of 34.0-34.9 in adult Z68.34 [facility] [id number] [place] [address] 37105- 2439 Jul, Unspecified episodic mood disorder F39 [facility] [id number] [place] [address] 54864- 7696 June, Gastroesophageal reflux disease, esophagitis presence not specified K21.9 [facility] [id number] [place] [address] 13426- 5505 June, [facility] [id number] [place] [address] 70328- 8205 June, [facility] [address], [place] [address] 3785 June, Arthritis M19.90 [facility] [id number] [place] [address] 22196- 5654 June, [facility] [id number] [place] [address] 88365- 4870 June, [facility] [id number] [place] [address] 48356- 8527 June, Unspecified episodic mood disorder F39 [facility] [id number] [place] [address] 65821- 8517 May, Unspecified episodic mood disorder F39 [facility] [id number] [place] [address] 10499- 0768 May, [facility] [id number] [place] [address] 81392- 2520 May, Arthritis M19.90 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 [facility] [address] [address] 9344 May, [facility] [id number] [place] [address] 11109- 6221 May, Other disorder of impulse control F63.89 ; Unspecified episodic mood disorder F39 ; Combined drug dependence excluding opioids, 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 ; Other psychoactive substance dependence, 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 and Anxiety F41.9 [facility] [id number] [place] [address] 45020- 3069 May, Other chronic pain G89.29 ; Left hip pain M25.552 ; Hypertension I10 ; 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, 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 and Unspecified episodic mood disorder F39 [facility] [id number] [place] [address] 90131- 0077 28 Apr, 2017 [facility] [id number] [place] [address] 54289 -2990 Apr, Neck pain M54.2 ; Left hip pain M25.552 and Fall, initial encounter W19.XXXA [facility] [address] 31782- 3443 Apr, Unspecified episodic mood disorder F39 ; Combined drug dependence excluding opioids, 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 ; Anxiety F41.9 ; Other psychoactive substance dependence, 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 and Other disorder of impulse control F63.89 [facility] [id number] [place] [address] 11503- 9096 Apr, [facility] [id number] [place] [address] 28524- 8611 Apr, Arthritis M19.90 and Unspecified episodic mood disorder F39 [facility] [id number] [place] [address] 79878- 0947 Apr, Unspecified episodic mood disorder F39 [facility] [id number] [place] [address] 43956- 8466 Apr, [facility] [id number] [place] [address] 51158- 3483 08 Apr, 2017 [facility] [id number] [place] [address] 31636- 4836 07 Apr, 2017 Unspecified episodic mood disorder F39 ; Combined drug dependence excluding opioids, 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 ; Anxiety F41.9 ; Other psychoactive substance dependence, 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 and Other disorder of impulse control F63.89 [facility] [id number] [place] [address] 96525- 8646 Mar, Unspecified episodic mood disorder F39 [facility] [id number] [place] [address] 73752- 5916 Mar, Gastroesophageal reflux disease, esophagitis presence not specified K21.9 [facility] [id number] [place] [address] 08314- 5681 Mar, Arthritis M19.90 and Unspecified episodic mood disorder F39 [facility] [id number] [place] [address] 92379- 4856 Feb, [facility] [id number] [place] [address] 27091- 2246 Feb, [facility] [id number] [place] [address] 72692- 0104 Feb, [facility] [id number] [place] [address] 44067 254 Feb, Arthritis M19.90 [facility] [id number] [place] [address] 03381 2540 Feb, Non-pressure chronic ulcer of right calf, 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 ; Unspecified episodic mood disorder F39 and Left hip pain M25.552 [facility] [id number] [place] [address] 11308 2546 Feb, [facility] [id number] [place] [address] 72254 2546 Feb, [facility] [id number] [place] [address] 14811 2546 Jan, Arthritis M19.90 [facility] [id number] [place] [address] 38002 2546 Jan, Left hip pain M25.552 and Non-pressure chronic ulcer of right calf, 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 [facility] [address], [place] [address] 4860 Jan, Chronic hepatitis C without hepatic coma B18.2 [facility] [id number] [place] [address] 11229- 9812 Jan, Encounter for immunization Z23 ; Venous insufficiency ( chronic) (peripheral) I87.2 ; Non-pressure chronic ulcer of unspecified calf limited to breakdown of skin L97.201 and Gastroesophageal reflux disease, esophagitis presence not specified K21.9 [facility] [id number] [place] [address] 17755- 4129 Jan, [facility] [id number] [place] [address] 92437- 5838 Jan, Chronic hepatitis C without hepatic coma B18.2 and Encounter for immunization Z23 [facility] [id number] [place] [address] 87341- 8025 Jan, Arthritis M19.90 [facility] [id number] [place] [address] 77783- 6935 Jan, [facility] [id number] [place] [address] 18588- 3008 Dec, [facility] [id number] [place] [address] 13884- 8997 Dec, Unspecified episodic mood disorder F39 [facility] [id number] [place] [address] 90310- 7830 Dec, Arthritis M19.90 [facility] [id number] [place] [address] 21286- 6471 Dec, Arthritis M19.90 [facility] [id number] [place] [address] 98694- 9293 Nov, [facility] [id number] [place] [address] 56586- 8911 Nov, [facility] [address] [place] [address]- 3064 Nov, Other psychoactive substance dependence, 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 ; 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, 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 and Chronic hepatitis C without hepatic coma B18.2 [facility] [id number] [place] [address] 55878- 2544 Nov, Arthritis M19.90 [facility] [id number] [place] [address] 81506 -0087 Oct, Partial thickness burn of abdomen, initial encounter T21.22XA [facility] [id number] [place] [address] 49629- 4909 Oct, [facility] [id number] [place] [address] 31729- 0205 Sep, Arthritis M19.90 [facility] [id number] [place] [address] 70722- 2639 Sep, [facility] [id number] [place] [address] 50258- 6453 Sep, [facility] [id number] [place] [address] 89298- 1399 Sep, Unspecified episodic mood disorder F39 ; Chronic hepatitis C without hepatic coma B18.2 and Left hip pain M25.552 [facility] [id number] [place] [address] 28934- 7907 Sep, Arthritis M19.90 and Left hip pain M25.552 [facility] [id number] [place] [address] 48816- 9924 Aug, [facility] [id number] [place] [address] 05271- 7393 Aug, [facility] [id number] [place] [address] 73161- 6391 Aug, Chronic hepatitis C without hepatic coma B18.2 [facility] [address] [place] [address]- 7348 Aug, [facility] [id number] [place] [address] 76572- 5520 Aug, Chronic hepatitis C without hepatic coma B18.2 [facility] [id number] [place] [address] 39436- 3211 Aug, 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, 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 [facility] [id number] [place] [address] 32797- 8998 Aug, [facility] [id number] [place] [address] 10022- 8349 Aug, Chronic hepatitis C without hepatic coma B18.2 and Hypertension I10 [facility] [id number] [place] [address] 13862- 8899 Jul, [facility] [id number] [place] [address] 59826- 0870 June, [facility] [id number] [place] [address] 78245- 1209 Apr, Fibromyalgia M79.7 ; Left hip pain M25.552 and Decubitus ulcer of sacral region, stage 1 L89.151 [facility] [id number] [place] [address] 88043- 4501 Apr, [facility] [id number] [place] [address] 32732- 5383 Apr, [facility] [id number] [place] [address] 66953- 6906 Feb, [facility] [address] 74723- 6391 Dec, Anxiety F41.9 ; Combined drug dependence excluding opioids, 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 and Unspecified episodic mood disorder F39 [facility] [id number] [place] [address] 35287- 7945 Dec, [facility] [address], [place] [address]- 4892 Nov, [facility] [id number] [place] [address] 97660- 3118 Nov, [facility] [address] [place] [address] 50107- 6645 Nov, Other disorder of impulse control F63.89 and Anxiety F41.9 [facility] [id number] [place] [address] 94406- 0470 Oct, [facility] [id number] [place] [address] 61852 -4428 Oct, Open wound of left thigh, initial encounter S71.102A [facility] [id number] [place] [address] 98518- 9445 Oct, [facility] [id number] [place] [address] 17202- 2653 Sep, Unspecified episodic mood disorder F39 ; Other disorder of impulse control 312.39 ; Combined drug dependence excluding opioids, 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 and Anxiety F41.9 [facility] [id number] [place] [address] 06507- 7659 Sep, Other disorder of impulse control 312.39 ; Combined drug dependence excluding opioids, 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 ; Anxiety F41.9 and Unspecified episodic mood disorder F39 [facility] [address] [place] [address] 94526- 5356 Sep, Other chronic pain G89.29 [facility] [address] [place] [address] 14968- 5562 Sep, [facility] [id number] [place] [address] 93654- 4958 Sep, [facility] [address] [place] [address] 02029- 9806 Aug, [facility] [id number] [address]- 0575 Aug, [facility] [address] [place] [address] 53187- 0882 Aug, [facility] [address] [place] [address] 19209- 1107 Jul, [facility] [id number] [place] [address] 47806- 7308 Jul, [facility] [id number] [place] [address] 25361- 6021 Jul, [facility] [id number] [place] [address] 30412- 1773 Jul, Arthritis M19.90 ; Chronic hepatitis C without hepatic coma B18.2 and Left hip pain M25.552 [facility] [id number] [place] [address] 41676- 9781 Jul, Left knee pain M25.562 [facility] [id number] [place] [address] 24480- 1782 Jul, Combined drug dependence excluding opioids, 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 ; Anxiety F41.9 ; Other disorder of impulse control 312.39 and Unspecified episodic mood disorder F39 [facility] [address], [place] [address]- 0475 Jul, Left knee pain M25.562 [facility] [address] [place] [address] 29115- 9817 Jul, Left knee pain M25.562 and Left hip pain M25.552 [facility] [address] [place] [address] 79936- 7115 Jul, [facility] [id number] [place] [address] 00560- 4374 June, [facility] [id number] [place] [address] 26101- 6342 June, Combinations of drug dependence excluding opioid type drug, unspecified abuse 304.80 ; Other disorder of impulse control 312.39 ; Unspecified episodic mood disorder F39 and Anxiety F41.9 [facility] [id number] [place] [address] 46120- 4105 June, Other fatigue R53.83 ; Headache R51 and Left knee pain M25.562 [facility] [id number] [place] [address] 55046- 0089 June, Unspecified episodic mood disorder F39 ; Combinations of drug dependence excluding opioid type drug, unspecified abuse 304.80 ; Other disorder of impulse control 312.39 and Anxiety F41.9 [facility] [id number] [place] [address] 29305- 5373 June, Anxiety F41.9 [facility] [id number] [place] [address] 74938- 4766 June, Pain in left knee M25.562 [facility] [id number] [place] [address] 44995- 9733 June, Anxiety F41.9 and Combinations of drug dependence excluding opioid type drug, unspecified abuse 304.80 [facility] [id number] [place] [address] 56129- 7802 June, Unspecified episodic mood disorder 296.90 ; Combinations of drug dependence excluding opioid type drug, unspecified abuse 304.80 and Other disorder of impulse control 312.39 [facility] [id number] [place] [address] 80057- 9713 June, Anxiety F41.9 and Unspecified episodic mood disorder 296.90 [facility] [id number] [place] [address] 89907- 7314 May, Arthritis M19.90 [facility] [id number] [place] [address] 64482- 1709 May, Arthritis M19.90 [facility] [id number] [place] [address] 46261- 2516 May, Anxiety F41.9 ; Combinations of drug dependence excluding opioid type drug, unspecified abuse 304.80 and Other disorder of impulse control 312.39 [facility] [address] [address]- 2036 18 May, 2015 Left knee pain M25.562 [facility] [address] [place] [address] 29048- 2994 May, Arthritis M19.90 [facility] [id number] [place] [address] 84623- 0766 May, [facility] [id number] [place] [address] 70490- 8802 May, Anxiety F41.9 ; Unspecified episodic mood disorder 296.90 ; Combinations of drug dependence excluding opioid type drug, unspecified abuse 304.80 and Other disorder of impulse control 312.39 [facility] [id number] [place] [address] 05681- 3562 May, Left knee pain M25.562 [facility] [address] [place] [address] 14801- 3029 May, Left knee pain M25.562 ; Combinations of drug dependence excluding opioid type drug, unspecified abuse 304.80 ; Other disorder of impulse control 312.39 ; Fibromyalgia M79.7 ; Hypertension I10 ; Unspecified episodic mood disorder 296.90 and Left hip pain M25.552 [facility] [address] [place] [address] 11407- 7973 May, Unspecified episodic mood disorder 296.90 ; Other disorder of impulse control 312.39 ; Combinations of drug dependence excluding opioid type drug, unspecified abuse 304.80 and Anxiety F41.9 [facility] [address] [place] [address] 73158- 0997 May, Left knee pain M25.562 ; Combinations of drug dependence excluding opioid type drug, unspecified abuse 304.80 ; Other disorder of impulse control 312.39 ; Fibromyalgia M79.7 ; Hypertension I10 ; Unspecified episodic mood disorder 296.90 and Left hip pain M25.552 [facility] [address] [address] May, Anxiety F41.9 ; Unspecified episodic mood disorder 296.90 ; Other disorder of impulse control 312.39 and Combinations of drug dependence excluding opioid type drug, unspecified abuse 304.80 [place] [id number] [place] [address] 30 Apr, 2015 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 and 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, implants and grafts, initial encounter T84.82XA [facility] [address] [place] [id number] [place] [address]91- [address] Apr, Anxiety F41.9 ; Unspecified episodic mood disorder 296.90 ; Combinations of drug dependence excluding opioid type drug, unspecified abuse 304.80 and Other disorder of impulse control 312.39 [place] [address] [place] [id number] [place] [address]- 79[address] Apr, Arthritis M19.90 [place] [address] [place] [id number] [place] [address]- 2011 Apr, Anxiety F41.9 ; Unspecified episodic mood disorder 296.90 ; Combinations of drug dependence excluding opioid type drug, unspecified abuse 304.80 and Other disorder of impulse control 312.39 [facility] [address] [address] 17 Apr, 2015 Arthritis M19.90 [facility] [address] [place] [id number] [place] [address]- [address]277 15 Apr, 2015 [place] [id number] [place] [address] 35082- 8371 15 Apr, 2015 [place] [address] [place] [id number] [place] [address]2376- 9889 14 Apr, 2015 Unspecified episodic mood disorder 296.90 ; Combinations of drug dependence excluding opioid type drug, unspecified abuse 304.80 ; Other disorder of impulse control 312.39 and Anxiety F41.9 [facility] [address], [place] [address] Apr, Left knee pain M25.562 [facility] [id number] [place] [address] 92559- 9708 Apr, [facility] [id number] [place] [address] 52325- 7642 Mar, Unspecified episodic mood disorder 296.90 ; Anxiety F41.9 ; Other disorder of impulse control 312.39 and Combinations of drug dependence excluding opioid type drug, unspecified abuse 304.80 [facility] [id number] [place] [address] 46873- 4208 Mar, Hyperpigmentation L81.9 [facility] [id number] [place] [address] 69613- 7953 Mar, Arthritis M19.90 and Anxiety F41.9 [facility] [facility] [id number] [place] [address] 90039- 7765 Mar, Unspecified episodic mood disorder F39 ; Combined drug dependence excluding opioids, 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 ; Other disorder of impulse control F63.89 and Anxiety F41.9 [facility] [id number] [place] [address] 96298- 9863 12 Mar, 2015 Well woman exam Z01.419 ; Other fatigue R53.83 ; Hot flashes N95.1 ; Depression, unspecified depression type F32.9 and Body mass index (BMI) of 23.0-23.9 in adult Z68.23 [facility] [id number] [place] [address] 63987- 0806 11 Mar, 2015 Unspecified episodic mood disorder 296.90 ; Other disorder of impulse control 312.39 and Anxiety F41.9 [facility] [id number] [place] [address] 60378- 6527 11 Mar, 2015 Well woman exam Z01.419 [...] of breast Z12.39 and Limited mobility Z74.[address] [address]- 1714 Mar, [address] 93460- 2178 Mar, [address] 6[address]01- 0743 Mar, [address] 34978- 4115 Mar, Other specified complication of internal orthopedic prosthetic devices, implants and grafts, initial encounter T84.89XA ; Fibromyalgia M79.7 ; Hypertension I10 ; Anemia D64.9 ; Insomnia G47.00 ; Anxiety F41.9 ; Arthritis M19.90 and Migraine G43.[address] [address]18- 1375 Mar, [place] [address] [address]- 9708 Feb, [address] 04391- 7025 Feb, Arthritis M19.90 and Anxiety F41.[address] 61036- 6782 Feb, [address] 16228- 1426 Feb, [facility] [id number] [place] [address] 6692 Feb, [facility] [id number] [place] [address] 9304 Feb, [facility] [id number] [place] [address]- 8990 18 Feb, 2015 Anxiety F41.9 [facility] [id number] [place] [address] 00134- 3510 15 Feb, 2015 [facility] [id number] [place] [address], [place] [address]- 6807 Feb, [facility] [id number] [place] [address] 14941- 1207 Feb, 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 and Fibromyalgia M79.7 [facility] [address], [place] [address] 9122 Feb, [facility] [address], [place] [address]- 0034 Jan, [facility] [address], [place] [address]- 2527 Jan, [facility] [address], [place] [address]- 0209 Jan, [facility] [address], [place] [address]- 4510 24 Jan, 2015 [facility] [address], [place] [address]- 5962 16 Jan, 2015 [facility] [address], [place] [address]- 1585 08 Jan, 2015 [facility] [id number] 2402 07 Jan, 2015 [facility] [address], [place] [address]- 3639 Jan, [facility] [address], [place] [address]- 9198 Dec, [facility] [id number] [place] [address] 47552- 6703 Dec, Left knee pain M25.562 [facility] [id number] [place] [address] 31140- 6638 Dec, Left knee pain M25.562 [facility] [id number] [place] [address] 52124- 5885 Dec, Fibromyalgia M79.7 ; Hypertension I10 and Arthritis M19.90 [facility] [id number] [place] [address] 45007- 7822 Dec, [facility] [id number] [place] [address] 54366- 8831 Dec, [facility] [id number] [place] [address] 23441- 9594 Dec, [facility] [id number] [place] [address] 50225- 9576 Dec, [facility] [id number] [place] [address] 13740- 9782 Nov, [facility] [address], [place] [address]- 7059 Nov, [facility] [id number] [place] [address] 59473- 5281 Nov, [facility] [address], [place] [address]- 8815 Nov, Hypertension I10 [facility] [address], [place] [address]- 9083 Oct, [facility] [address], [place] [address]- 6162 Oct, [facility] [id number] [address]- 7596 Oct, [facility] [address] [id number], [place] [address]- 5181 Oct, [facility] [place] [facility] [address] [id number], [place] [address]- 1229 Oct, [facility] [place] [facility] [address] [id number], [place] [address]- 5321 Sep, [facility] [place] [facility] [address] [id number], [place] [address]- 7657 Sep, [facility] [address] [id number], [place] [address]- 7305 Sep, Hip pain associated with recalled total hip arthroplasty hardware 996.77 [facility] [place] [facility] [address] [facility] [id number], [place] [address]- 8288 Sep, [facility] [place] [facility] [address] [facility] [id number], [place] [address]- 3847 Sep, [facility] [place] [facility] [address] [facility] [id number], [place] [address]- 5400 Sep, [facility] [place] [facility] [address] [facility] [id number], [place] [address]- 2146 Aug, [facility] [place] [facility] [address] [facility] [id number], [place] [address]- 3287 Jul, [facility] [place] [facility] [address] [facility] [id number], [place] [address]- 8451 June, [facility] [place] [facility] [address] [facility] [id number], [place] [address]- 1714 June, [facility] [place] [facility] [address] [facility] [id number], [place] [address]- 8506 June, [facility] [place] [facility] [address] [facility] [id number], [place] [address]- 6815 June, [facility] [place] [facility] [address] [id number], [place] [address]- 3317 June, [facility] [place] [facility] [address] [id number] [place] [address]- 4651 June, [facility] [place] [facility] [address] [id number] [place] [address]- 2092 May, [facility] [place] [facility] [address] [id number] [place] [address]- 2027 May, [facility] [place] [facility] [address] [id number] [place] [address]- 5049 May, [facility] [place] [facility] [address] [id number] [place] [address]- 6234 30 Apr, 2014 [facility] [place] [facility] [address] [id number] [place] [address]- 7588 Apr, [facility] [place] [facility] [address] [id number] [place] [address]- 9410 Apr, [facility] [place] [facility] [address] [id number] [place] [address]- 0478 Apr, [facility] [place] [facility] [address] [id number] [place] [address]- 3685 Apr, [facility] [place] [facility] [address] [facility] [id number] [place] [address]- 8841 Apr, [facility] [place] [facility] [address] [id number] [place] [address]- 0985 Apr, [facility] [place] [facility] [address] [id number] [place] [address]- 7028 Apr, [facility] [place] [facility] [address] [id number] [place] [address]- 0351 10 Apr, 2014 [facility] [place] [facility] [address] [id number] [place] [address]- 4762 Apr, [facility] [place] [facility] [address] [facility] [id number] [place] [address]- 1752 Apr, [facility] [place] [facility] [address] [id number] [place] [address]- 6383 Mar, 2014 [facility] [place] [facility] [address] [id number] [place] [address]- 4702 Mar, 2014 [facility] [place] [facility] [address] [id number] [place] [address]- 6578 16 Mar, 2014 [facility] [place] [facility] [address] [id number] [place] [address]- 7472 16 Mar, 2014 [facility] [place] [facility] [address] [id number] [place] [address]- 2725 Mar, 2014 [facility] [place] [facility] [address] [id number] [place] [address]- 4850 Mar, [facility] [place] [facility] [address] [facility] [id number] [place] [address]- 9705 Feb, [facility] [place] [facility] [address] [id number] [place] [address]- 2177 Feb, [facility] [place] [facility] [address] [id number] [place] [address]- 3883 Feb, [facility] [place] [facility] [address] [facility] [id number] [place] [address]- 3222 Feb, [facility] [place] [facility] [address] [id number] [place] [address]- 7709 Jan, [facility] [place] [facility] [address] [id number] [place] [address]- 6950 Jan, [facility] [place] [facility] [address] [id number] [place] [address]- 3676 Jan, [facility] [place] [facility] [address] [id number] [place] [address]- 5097 Jan, [facility] [place] [facility] [address] [id number] [place] 8319 Dec, [facility] [place] [facility] [address] [id number], [place] [address]- 4293 Dec, [facility] [place] [facility] [address] [id number] [place] [address]- 7115 Dec, [facility] [place] [facility] [address] [id number] [place] [address]- 0264 Dec, [facility] [place] [facility] [address] [id number] [place] [address]- 7787 Dec, [facility] [place] [facility] [address] [id number] [place] [address]- 1795 Dec, [facility] [place] [facility] [address] [id number] [place] [address]- 5125 Dec, [facility] [place] [facility] [address] [id number] [place] [address]- 2764 Dec, [facility] [place] [facility] [address] [id number] [place] [address]- 2397 Dec, [facility] [place] [facility] [address] [id number] [place] [address]- 3246 Dec, [facility] [place] [facility] [address] [id number] [place] [address]- 5431 Dec, [facility] [place] [facility] [address] [id number] [place] [address]- 6574 Nov, [facility] [place] [facility] [address] [id number], [place] [address]- 0886 Nov, [facility] [place] [facility] [address] [id number], [place] [address]- 3928 28 Nov, 2013 [facility] [place] [facility] [address] [id number] [place] [address]- 3084 17 Nov, 2013 [facility] [place] [facility] [address] [id number] [place] [address]- 8620 17 Nov, 2013 [facility] [place] [facility] [address] [id number] [place] [address]- 5453 15 Nov, 2013 [facility] [place] [facility] [address] [id number] [place] [address]- 7961 15 Nov, 2013 [facility] [place] [facility] [address] [id number] [place] [address]- 5978 15 Nov, 2013 [facility] [place] [facility] [address] [id number] [place] [address]- 2818 15 Nov, 2013 [facility] [place] [facility] [address] [id number] [place] [address]- 2397 14 Nov, 2013 [facility] [place] [facility] [address] [id number] [place] [address]- 1089 14 Nov, 2013 [facility] [place] [facility] [address] [id number] [place] [address]- 0654 14 Nov, 2013 [facility] [place] [facility] [address] [id number] [place] [address]- 7910 14 Nov, 2013 [facility] [place] [facility] [address] [id number] [place] [address]- 3834 13 Nov, 2013 [facility] [place] [facility] [address] [id number] [place] [address]- 2375 13 Nov, 2013 [facility] [place] [facility] [address] [id number] [place] [address]- 2785 11 Nov, 2013 [facility] [place] [facility] [address] [id number] [place] [address]- 6111 11 Nov, 2013 [facility] [place] [facility] [address] [id number] [place] [address]- 6572 07 Nov, 2013 [facility] [place] [facility] [address] [id number] [place] [address]- 4769 07 Nov, 2013 [facility] [place] [facility] [address] [id number] [place] [address]- 9021 07 Nov, 2013 [facility] [place] [facility] [address] [id number] [place] [address]- 0082 07 Nov, 2013 [facility] [place] [facility] [address] [id number] [place] [address]- 5335 30 Oct, 2013 [facility] [place] [facility] [address] [id number] [place] [address]- 5106 30 Oct, 2013 [facility] [place] [facility] [address] [id number] [place] [address]- 0017 26 Oct, 2013 [facility] [place] [facility] [address] [id number] [place] [address]- 6339 26 Oct, 2013 [facility] [place] [facility] [address] [id number] [place] [address]- 5145 22 Oct, 2013 [facility] [place] [facility] [address] [id number] [place] [address]- 8612 22 Oct, 2013 [facility] [place] [facility] [address] [id number] [place] [address]- 4825 18 Oct, 2013 [facility] [place] [facility] [address] [id number] [place] [address]- 7690 18 Oct, 2013 [facility] [place] [facility] [address] [id number] [place] [address]- 7141 18 Oct, 2013 [facility] [place] [facility] [address] [id number] [place] [address]- 0301 18 Oct, 2013 [facility] [place] [facility] [address] [id number] [place] [address]- 1623 12 Oct, 2013 [facility] [place] [facility] [address] [id number] [place] [address]- 3619 Oct, 2013 [facility] [place] [facility] [address] [id number] [place] [address]- 5529 Oct, 2013 [facility] [place] [facility] [address] [id number] [place] [address] 2549 Oct, [facility] [place] [facility] [address] [id number] [place] [address]- 7224 Sep, [facility] [place] [facility] [address] [id number] [place] [address]- 2712 Sep, [facility] [place] [facility] [address] [id number] [place] [address]- 7396 Sep, [facility] [place] [facility] [address] [id number] [place] [address]- 2567 Sep, [facility] [place] [facility] [address] [id number] [place] [address]- 7237 Sep, [facility] [place] [facility] [address] [id number] [place] [address]- 7741 Sep, [facility] [place] [facility] [address] [id number] [place] [address]- 8614 Sep, [facility] [place] [facility] [address] [id number] [place] [address]- 0223 Sep, [facility] [place] [facility] [address] [id number] [place] [address]- 6453 Sep, [facility] [place] [facility] [address] [id number] [place] [address]- 9818 Sep, [facility] [place] [facility] [address] [id number] [place] [address]- 5419 Sep, [facility] [place] [facility] [address] [id number] [place] [address]- 0582 Sep, [facility] [place] [facility] [address] [id number] [place] [address]- 8143 Sep, [facility] [place] [facility] [address] [id number] [place] [address]- 4165 Sep, [facility] [place] [facility] [address] [id number] [place] [address]- 2220 Sep, [facility] [place] [facility] [address] [id number] [place] [address]- 9565 Sep, [facility] [place] [facility] [address] [id number] [place] [address]- 1756 Sep, [facility] [place] [facility] [address] [id number] [place] [address]- 6433 Sep, [facility] [place] [facility] [address] [id number] [place] [address]- 9999 Aug, [facility] [place] [facility] [address] [id number] [place] [address]- 1957 Aug, [facility] [place] [facility] [address] [id number] [place] [address]- 8557 Aug, [facility] [place] [facility] [address] [id number] [place] [address]- 2718 Aug, [facility] [place] [facility] [address] [id number] [place] [address]- 6970 Aug, [facility] [place] [facility] [address] [id number] [place] [address]- 9253 Aug, [facility] [place] [facility] [address] [id number] [place] [address]- 5306 Jul, [facility] [place] [facility] [address] [id number] [place] [address]- 4785 Jul, [facility] [place] [facility] [address] [id number] [place] [address]- 0936 Jul, [facility] [place] [facility] [address] [id number] [place] [address]- 4117 Jul, [facility] [place] [facility] [address] [id number] [place] [address]- 4683 June, [facility] [place] [facility] [address] [id number] [place] [address]- 4965 June, [facility] [place] [facility] [address] [id number] [place] [address]- 3682 June, [facility] [place] [facility] [address] [id number] [place] [address]- 4085 June, [facility] [place] [facility] [address] [id number] [place] [address]- 5959 June, [facility] [place] [facility] [address] [id number] [place] [address]- 1925 June, [facility] [place] [facility] [address] [id number] [place] [address]- 4926 June, [facility] [place] [facility] [address] [id number] [place] [address]- 8177 May, [facility] [place] [facility] [address] [id number] [place] [address]- 5259 May, [facility] [place] [facility] [address] [id number] [place] [address]- 5115 May, [facility] [place] [facility] [address] [id number] [place] [address]- 5528 May, [facility] [place] [facility] [address] [id number] [place] [address]- 1705 May, [facility] [place] [facility] [address] [id number] [place] [address]- 3704 May, [facility] [place] [facility] [address] [id number] [place] [address]- 2283 Apr, [facility] [place] [facility] [address] [id number] [place] [address]- 1759 31 Apr, 2013 [facility] [place] [facility] [address] [id number] [place] [address]- 3856 28 Apr, 2013 [facility] [place] [facility] [address] [id number] [place] [address]- 1094 28 Apr, 2013 [facility] [place] [facility] [address] [id number] [place] [address]- 0995 14 Apr, 2013 [facility] [place] [facility] [address] [id number] [place] [address] 14 Apr, 2013 [facility] [place] [facility] [address] [id number] [place] [address] Apr, [facility] [place] [facility] [address] [id number] [place] [address] Apr, [facility] [place] [facility] [address] [id number] [place] [address] 10 Apr, 2013 [facility] [place] [facility] [address] [id number] [place] [address] Apr, [facility] [place] [facility] [address] [id number] [place] [address] Apr, [facility] [place] [facility] [address] [id number] [place] [address] Apr, [facility] [place] [facility] [address] [id number] [place] [address] Apr, [facility] [place] [facility] [address] [id number] [place] [address] Apr, [facility] [place] [facility] [address] [id number] [place] [address] Mar, [facility] [place] [facility] [address] [id number] [place] [address] Mar, [facility] [place] [facility] [address] [id number] [place] [address] Mar, [facility] [place] [facility] [address] [id number] [place] [address] Feb, [facility] [place] [facility] [address] [id number] [place] [address] Feb, [facility] [place] [facility] [address] [id number] [place] [address] Feb, [facility] [place] [facility] [address] [id number] [place] [address] Feb, [facility] [place] [facility] [address] [id number] [place] [address] Feb, [facility] [place] [facility] [address] [id number] [place] [address]779 Feb, [facility] [place] [facility] [address] [id number] [place] [address] 4[address] Feb, [facility] [address] [id number] [place] [address] Feb, [facility] [place] [facility] [address] [id number] [place] [address] 7085 Feb, [facility] [place] [facility] [address] [id number] [place] [address]248 Feb, [facility] [place] [facility] [address] [id number] [place] [address]186 Jan, [facility] [address] [id number] [place] [address] Jan, [facility] [place] [facility] [address] [id number] [place] [address]35 Jan, [facility] [place] [facility] [address] [id number] [place] [address] 1778 Jan, [facility] [address] [id number] [place] [address] 38[address] Jan, [facility] [place] [facility] [address] [id number] [place] [address] 98[address] Jan, [facility] [place] [facility] [address] [id number] [place] [address] 3489 Jan, [facility] [place] [facility] [address] [id number] [place] [address] 1564 Jan, [facility] [place] [facility] [address] [id number], [place] [address] Jan, [facility] [place] [facility] [address] [id number] [place] [address] Jan, [facility] [place] [facility] [address] [id number] [place] [address] 8516 Jan, [facility] [place] [facility] [address] [id number] [place] [address] 17 Jan, 2013 [facility] [place] [facility] [address] [id number], [place] [address] Jan, [facility] [address] [id number] [place] [address] Jan, [facility] [address] [facility] [id number] [place] [address]- 0470 Jan, [facility] [address] [facility] [id number] [place] [address]- [address]201 Jan, [facility] [address] [id number] [place] [address] 37[address] Jan, [facility] [address] [facility] [id number] [place] [address] Jan, [facility] [address] [facility] [id number] [place] [address] 8[address] Jan, [facility] [address] [id number], [place] [address] Jan, [facility] [address] [facility] [id number] [place] [address] Jan, [facility] [id number] [place] [address] Dec, [facility] [address] [facility] [id number] [place] [address]- [address]951 Dec, [facility] [address] [facility] [id number], [place] [address]- [address]9 Dec, [facility] [place] [facility] [address] [facility] [id number], [place] [address]- [address]226 Dec, [facility] [place] [facility] [address] [id number], [place] [address]- [address] Dec, [facility] [place] [facility] [address] [facility] [id number], [place] [address]- [address] Dec, [facility] [place] [facility] [address] [id number], [place] [address] Dec, [facility] [place] [facility] [address] [id number] [place] [address]- 4056 Dec, [facility] [place] [facility] [address] [id number] [place] [address]- 4320 Dec, [facility] [place] [facility] [address] [id number] [place] [address] 0833 Dec, [facility] [place] [facility] [address] [id number] [place] [address]- 8108 Nov, [facility] [place] [facility] [address] [id number] [place] [address] 1987 Nov, [facility] [place] [facility] [address] [id number] [place] [address]- [address]227 Nov, [facility] [place] [facility] [address] [id number] [place] [address]- 5778 Nov, [facility] [place] [facility] [address] [id number] [place] [address]- 0475 Nov, [facility] [place] [facility] [address] [id number] [place] [address]- 9718 Nov, [facility] [place] [facility] [address] [id number] [place] [address]- 8448 Nov, [facility] [place] [facility] [address] [id number] [place] [address]- 4684 Nov, [facility] [place] [facility] [address] [id number] [place] [address]- 1330 10 Nov, 2012 [facility] [place] [facility] [address] [id number] [place] [address]- 9024 Nov, [facility] [place] [facility] [address] [address] [id number] [place] [address] Oct, [facility] [place] [facility] [address] [id number] [place] [address] Oct, [facility] [place] [facility] [address] [id number] [place] [address] Oct, [facility] [address] [id number] [place] [address] 2001 Oct, [facility] [place] [facility] [address] [id number] [place] [address]79 Oct, [facility] [place] [facility] [address] [id number] [place] [address] 8039 Sep, [facility] [place] [facility] [address] [id number] [place] [address] Sep, [facility] [address] [id number] [place] [address] 47[address] Aug, [facility] [place] [facility] [address] [id number] [place] [address] Aug, [facility] [place] [facility] [address] [id number] [place] [address] 5195 Aug, [facility] [place] [facility] [address] [id number] [place] [address] 3896 Aug, [facility] [place] [facility] [address] [id number] [place] [address] 0336 Aug, [facility] [place] [facility] [address] [id number] [place] [address] 3598 Aug, [facility] [place] [facility] [address] [id number] [place] [address] 1999 Aug, [facility] [place] [facility] [address] [id number], [place] [address] Jul, [facility] [place] [facility] [address] [id number] [place] [address] 8909 Jul, [facility] [place] [facility] [address] [id number] [place] [address] 8679 June, [facility] [place] [facility] [address] [id number] [place] [address] 4021 June, [facility] [place] [facility] [address] [id number] [place] [address] 2650 June, [facility] [address] [id number] [place] [address] 4145 June, [facility] [address] [id number] [place] [address] 0[address] June[facility] [address] [id number] [place] [address] 8660 June, [facility] [address] [id number] [place] [address]- 0869 June, [facility] [address] [id number] [place] [address] 7597 June, [facility] [address] [id number] [place] [address]- 7449 June, [facility] [address] [id number] [place] [address] 1672 June, [facility] [address] [id number] [place] [address]- 5705 June, [facility] [address] [id number] [place] [address] 7040 May, [facility] [address] [id number] [place] [address]- 6686 May, [facility] [address] [id number] [place] [address] 9244 May, [facility] [address] [id number] [place] [address]- 9975 May, [facility] [address] [id number] [place] [address]- 3922 Apr, [facility] [address] [id number] [place] [address]- 2455 Apr, [facility] [address] [id number] [place] [address]- 9146 Apr, [facility] [address] [id number] [place] [address] 4314 Mar, [facility] [address] [id number] [place] [address]- 6136 Mar, [facility] [address] [id number] [place] [address] 2262 Feb, [facility] [address] [id number] [place] [address]- 0200 Feb, [facility] [address] [id number] [place] [address]- 1025 Feb, [facility] [address] [id number] [place] [address]- 1326 Feb, [facility] [address] [id number] [place] [address]- 4988 Feb, [facility] [address] [id number] [place] [address] 7329 Feb, [facility] [address] [id number] [place] [address] 0603 Feb, [facility] [address] [id number] [place] [address] Jan, [facility] [address] [id number] [place] [address]- 1359 Jan, [facility] [address] [id number] [place] [address]- 8999 Jan, [facility] [place] [facility] [address] [id number] [place] [address]- 8506 Jan, [facility] [place] [facility] [address] [id number] [place] [address]- 5646 Jan, [facility] [place] [facility] [address] [id number] [place] [address]- 7956 Jan, [facility] [address] [id number], [place] [address] 8841 Jan, [facility] [place] [facility] [address] [id number] [place] [address]- 0659 Jan, [facility] [place] [facility] [address] [id number] [place] [address] Jan, [facility] [place] [facility] [address] [id number] [place] [address]- 2616 Jan, [facility] [place] [facility] [address] [id number] [place] [address]- 8814 Jan, [facility] [place] [facility] [address] [id number] [place] [address]- 1532 Dec, [facility] [place] [facility] [address] [id number] [place] [address]- 5390 Dec, [facility] [place] [facility] [address] [id number] [place] [address]- 1796 Dec, [facility] [place] [facility] [address] [id number] [place] [address]- 2182 Dec, [facility] [place] [facility] [address] [id number] [place] [address]- 3954 Nov, [facility] [place] [facility] [address] [id number] [place] [address]- 6096 Nov, [facility] [place] [facility] [address] [id number], [place] [address]- [address]83 08 Nov, 2011 [facility] [place] [facility] [address] [id number], [place] [address] 27 Oct, 2011 [facility] [place] [facility] [address] [id number] [place] [address]- 8089 24 Oct, 2011 [facility] [place] [facility] [address] [id number] [place] [address]- 2147 21 Oct, 2011 [facility] [place] [facility] [address] [id number] [place] [address]- 6202 10 Oct, 2011 [facility] [place] [facility] [address] [id number] [place] [address]- 1521 07 Oct, 2011 [facility] [place] [facility] [address] [id number] [place] [address]- 1876 04 Oct, 2011 [facility] [place] [facility] [address] [id number] [place] [address]- 7966 04 Oct, 2011 [facility] [place] [facility] [address] [id number] [place] [address]- 5016 29 Sep, 2011 [facility] [place] [facility] [address] [id number] [place] [address]- 0629 Sep, [facility] [place] [facility] [address] [id number] [place] [address]- 1746 Sep, [facility] [place] [facility] [address] [id number] [place] [address]- 3828 Sep, [facility] [place] [facility] [address] [id number] [place] [address]- 4648 Sep, [facility] [place] [facility] [address] [id number] [place] [address]- 9740 Aug, [facility] [place] [facility] [address] [id number] [place] [address]- 2068 Aug, [facility] [place] [facility] [address] [id number] [place] [address]- 5464 Aug, [facility] [place] [facility] [address] [id number] [place] [address]- 0173 16 Aug, 2011 [facility] [place] [facility] [address] [id number] [place] [address] 2549 Aug, [facility] [place] [facility] [address] [id number] [place] [address]- 7226 Aug, [facility] [place] [facility] [address] [id number] [place] [address]- 2546 Aug, [facility] [place] [facility] [address] [id number] [place] [address]- 9788 Jul, [facility] [place] [facility] [address] [id number] [place] [address]- 6588 Jul, [facility] [place] [facility] [address] [id number] [place] [address]- 6576 Jul, [facility] [place] [facility] [address] [id number] [place] [address]- 0593 Jul, [facility] [place] [facility] [address] [id number] [place] [address]- 0055 Jul, [facility] [place] [facility] [address] [id number] [place] [address]- 0728 Jul, [facility] [place] [facility] [address] [id number] [place] [address]- 5986 07 Jul, 2011 [facility] [place] [facility] [address] [id number] [place] [address]- 0828 06 Jul, 2011 [facility] [place] [facility] [address] [id number] [place] [address]- 9811 05 Jul, 2011 [facility] [place] [facility] [address] [id number] [place] [address]- 4870 June, [facility] [place] [facility] [address] [id number] [place] [address]- 1753 June, [facility] [place] [facility] [address] [id number] [place] [address]- 3921 June, [facility] [place] [facility] [address] [id number] [place] [address]- 3682 June, [facility] [place] [facility] [address] [id number] [place] [address]- 3521 June, [facility] [place] [facility] [address] [id number] [place] [address]- 6016 June, [facility] [place] [facility] [address] [id number] [place] [address]- 0067 June, [facility] [place] [facility] [address] [id number] [place] [address]- 5983 June, [facility] [address] [id number] [place] [address]- 9676 25 May, 2011 [facility] [place] [facility] [address] [id number] [place] [address]- 3756 23 May, 2011 [facility] [place] [facility] [address] [id number] [place] [address]- 2096 May, [facility] [place] [facility] [address] [id number] [place] [address]- 3571 May, [facility] [place] [facility] [address] [id number] [place] [address]- 7928 May, [facility] [place] [facility] [address] [id number] [place] [address]- 1343 May, [facility] [address] [id number] [place] [address]- 7182 May, [facility] [place] [facility] [address] [id number] [place] [address]- 7504 Apr, [facility] [place] [facility] [address] [id number] [place] [address]- 6929 Apr, [facility] [place] [facility] [address] [id number] [place] [address]- 2497 Apr, [facility] [place] [facility] [address] [id number] [place] [address]- 6796 Apr, [facility] [place] [facility] [address] [id number] [place] [address]- 8382 Apr, [facility] [place] [facility] [address] [id number] [place] [address]- 5081 Apr, [facility] [place] [facility] [address] [id number] [place] [address]- 5939 Apr, [facility] [place] [facility] [address] [id number] [place] [address]- 9361 Mar, [facility] [place] [facility] [address] [id number] [place] [address]- 1566 Mar, [facility] [place] [facility] [address] [id number] [place] [address]- 5256 14 Mar, 2011 [facility] [place] [facility] [address] [id number] [place] [address] 2546 Mar, [facility] [place] [facility] [address] [id number] [place] [address] 2546 Mar, [facility] [place] [facility] [address] [id number] [place] [address] 2546 Mar, [facility] [place] [facility] [address] [id number] [place] [address] 2546 Mar, [facility] [place] [facility] [address] [id number] [place] [address]- 3656 Feb, [facility] [place] [facility] [address] [id number] [place] [address]- 2349 Feb, [facility] [place] [facility] [address] [id number] [place] [address]- 7185 Feb, [facility] [place] [facility] [address] [id number] [place] [address]- 6490 Feb, [facility] [place] [facility] [address] [id number] [place] [address]- 0066 Feb, [facility] [place] [facility] [address] [id number] [place] [address]- 7025 Feb, [facility] [place] [facility] [address] [id number] [place] [address] 2546 Feb, [facility] [place] [facility] [address] [id number] [place] [address] 2546 Feb, [facility] [place] [facility] [address] [id number] [place] [address] 2546 Feb, [facility] [place] [facility] [address] [id number] [place] [address]- 6643 Feb, [facility] [address] [id number] [place] [address]- 9100 Jan, [facility] [place] [facility] [address] [id number] [place] [address]- 5566 Jan, [facility] [place] [facility] [address] [id number] [place] [address]- 9326 Jan, [facility] [place] [facility] [address] [id number] [place] [address]- 4407 Jan, [facility] [place] [facility] [address] [id number] [place] [address]- 4509 Jan, [facility] [place] [facility] [address] [id number] [place] [address]- 7435 Jan, [facility] [address] [id number] [place] [address]- 1175 Jan, [facility] [place] [facility] [address] [id number] [place] [address]- 6980 Jan, [facility] [place] [facility] [address] [id number] [place] [address]- 4922 Jan, [facility] [place] [facility] [address] [id number] [place] [address]- 9398 Jan, [facility] [place] [facility] [address] [id number] [place] [address]- 7933 Jan, [facility] [place] [facility] [address] [id number] [place] [address]- 4614 Dec, [facility] [place] [facility] [address] [id number] [place] [address]- 5683 Dec, [facility] [place] [facility] [address] [id number] [place] [address]- 0323 17 Dec, 2010 [facility] [place] [facility] [address] [id number] [place] [address]- 8312 16 Dec, 2010 [facility] [place] [facility] [address] [id number] [place] [address]- 9561 14 Dec, 2010 [facility] [place] [facility] [address] [id number] [place] [address]- 0822 09 Dec, 2010 [facility] [place] [facility] [address] [id number] [place] [address]- 7456 08 Dec, 2010 [facility] [place] [facility] [address] [id number] [place] [address]- 7516 07 Dec, 2010 [facility] [place] [facility] [address] [id number] [place] [address]- 5534 Dec, [facility] [place] [facility] [address] [id number] [place] [address]- 0699 Nov, [facility] [place] [facility] [address] [id number] [place] 8569 Nov, [facility] [place] [facility] [address] [id number] [place] [address]- 8056 Nov, [facility] [place] [facility] [address] [id number] [place] [address]- 3191 Nov, [facility] [place] [facility] [address] [id number] [place] [address]- 3733 24 Nov, 2010 [facility] [place] [facility] [address] [id number] [place] [address]- 1275 Nov, [facility] [place] [facility] [address] [id number] [place] [address]- 4032 Aug, [facility] [place] [facility] [address] [id number] [place] [address]- 7141 14 Feb, 2010 [facility] [place] [facility] [address] [id number] [place] [address]- 1911 14 Jan, 2010 [facility] [place] [facility] [address] [id number] [place] [address]- 3617 06 Jan, 2010 [facility] [place] [facility] [address] [id number] [place] [address]- 3908 Jan, [facility] [address] [id number], [place] [address] 0812 Jan, [facility] [id number], [place] [address]- 5496 Jan, [facility] [id number], [place] [address]- 1386 Dec, [facility] [id number] 7122 Dec, [facility] [id number], [place] [address]- 9354 Dec, [facility] [id number], [place] [address]- 5023 Dec, [facility] [id number], [place] [address]- 5923 Nov, [facility] [id number], [place] [address]- 3184 Nov, [facility] [address] [id number], [place] [address]- 2831 Nov, IMMUNIZATIONS No Known Immunizations SOCIAL HISTORY Never Assessed REASON FOR VISIT f/u PLAN OF CARE Activity Details Follow Up Next available, 2 Weeks Reason:Mood disorder, anxiety,Impolse contrei VITAL SIGNS MEDICATIONS Medication Instructions Dosage Frequency Start Date End Date Duration Status Cyclobenzaprine HCl 10 MG TAKE ONE TABLET BY MOUTH THREE TIMES DAILY 30 Unknown Aspirin 81 MG Orally Once a day 1 tablet 24h 30 Unknown Pantoprazole Sodium 40 mg Orally Once a day 1 tablet 24h 30 days Unknown Nabumetone 500 MG Orally Twice a day 1 tablet 12h 30 Unknown Promethazine HCl 25 MG Orally every 12 hrs 1 tablet as needed 12h 30 Unknown Fentanyl 50 MCG/HR Transdermal 72hrs 1 patch to skin Mar, 30 days Unknown Abilify 2 MG Orally Once a day 2 tablets 24h 30 days Unknown Furosemide 20 MG Orally Once a day ONE TABLET 24h 30 Unknown Sumatriptan Succinate 100 mg Orally Once a day 1 tablet as needed one time 24h 30 Unknown Clonidine HCl 0.1 MG Orally twice a day 1 tablet 12h 30 Unknown Fluoxetine HCl 40 mg Orally Once a day 2 capsule in the morning 24h 30 Unknown Lyrica 150 MG Orally 3 times a day 1 capsule 8h 28 days Unknown Klonopin 1 MG Orally 3 times a day 1 tablet 8h 28 days Unknown RESULTS No Results PROCEDURES Procedure Date Ordered Result Body Site Psychotherapy, patient &/family, 30 minutes, established patient April 16, 2017 INSTRUCTIONS MEDICATIONS ADMINISTERED No Known Medications [...]
--- OUTSIDE RECORDS SUMMARY | 2018-01-13 21:12 | XMS REPORT ---
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
--- OUTSIDE RECORDS SUMMARY | 2018-01-13 21:12 | XMS REPORT ---
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 Active 46762693 Problem Unspecified episodic mood disorder F39 Active 02049516 Problem Hypertension I10 Active 27247790 Problem Venous insufficiency (chronic) (peripheral) I87.2 Active 822481005 Problem Gastroesophageal reflux disease, esophagitis presence not specified K21.9 Active 509146111 Problem Other chronic pain G89.29 Active 34529039 Problem Chronic hepatitis C without hepatic coma B18.2 Active 258955507 Problem Other psychoactive substance dependence, uncomplicated F19.20 Active 5641731 Problem 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, 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 653106280 ALLERGIES Substance Reaction Event Type Date Status Propranolol HCl chest pain, headache Drug Allergy Nov, Active Bactrim unknown Drug Allergy Nov, Active Penicillins unknown Non Drug Allergy Nov, Active ENCOUNTERS Encounter Location Date Diagnosis [facility] [address] [facility] [id number] [address] June, [facility] [address] [address] June, [facility] [id number] [address] June, Unspecified episodic mood disorder F39 [facility] [id number] [place] [address] 19342- 3336 May, Unspecified episodic mood disorder F39 [facility] [id number] [place] [address] 91274- 2609 May, [facility] [id number] [place] [address] 78030- 2772 May, Arthritis M19.90 [facility] [id number] [place] [address] 69535 -7873 May, Dysuria R30.0 ; Abscess L02.91 and Acute cystitis without hematuria N30.00 [facility] [id number] [place] [address] 76655- 0036 May, 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 ; Unspecified episodic mood disorder F39 ; Combined drug dependence excluding opioids, 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 ; Anxiety F41.9 and Other psychoactive substance dependence, uncomplicated F19.20 [facility] [id number] [place] [address] 03910- 3147 May, [facility] [id number] [place] [address] 10046- 6413 May, 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 ; Unspecified episodic mood disorder F39 ; Combined drug dependence excluding opioids, 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 ; Other psychoactive substance dependence, uncomplicated F19.20 and Anxiety F41.9 [facility] [id number] [place] [address] 17530- 0064 May, Other chronic pain G89.29 ; Left hip pain M25.552 ; Hypertension I10 ; 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, 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 and Unspecified episodic mood disorder F39 [facility] [id number] [place] [address] 54331- 9779 Apr, [facility] [id number] [place] [address] 83188 -1284 Apr, Neck pain M54.2 ; Left hip pain M25.552 and Fall, initial encounter W19.XXXA [facility] [address] [place] [address] 67492- 4611 Apr, Unspecified episodic mood disorder F39 ; Combined drug dependence excluding opioids, 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 ; Anxiety F41.9 ; Other psychoactive substance dependence, uncomplicated F19.20 and Other disorder of impulse control F63.89 [facility] [id number] [place] [address] 47898- 4989 Apr, [facility] [id number] [place] [address] 48282- 3214 Apr, Arthritis M19.90 and Unspecified episodic mood disorder F39 [facility] [id number] [place] [address] 24071- 6003 Apr, Unspecified episodic mood disorder F39 [facility] [id number] [place] [address] 43905- 3351 Apr, [facility] [id number] [place] [address] 63218- 1646 Apr, [facility] [id number] [place] [address] 54435- 9528 Apr, Unspecified episodic mood disorder F39 ; Combined drug dependence excluding opioids, 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 ; Anxiety F41.9 ; Other psychoactive substance dependence, uncomplicated F19.20 and Other disorder of impulse control F63.89 [facility] [id number] [place] [address] 95637- 5944 Mar, Unspecified episodic mood disorder F39 [facility] [id number] [place] [address] 22637- 5636 Mar, Gastroesophageal reflux disease, esophagitis presence not specified K21.9 [facility] [id number] [place] [address] 73589- 1589 Mar, Arthritis M19.90 and Unspecified episodic mood disorder F39 [facility] [id number] [place] [address] 93305- 4932 Feb, [facility] [id number] [place] [address] 97523- 1563 Feb, [facility] [id number] [place] [address] 51456- 7775 Feb, [facility] [id number] [place] [address] 74373- 6435 Feb, Arthritis M19.90 [facility] [address] 97244- 4935 Feb, Non-pressure chronic ulcer of right calf, 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 ; Unspecified episodic mood disorder F39 and Left hip pain M25.552 [facility] [address] 97263- 2632 Feb, [facility] [address] 57811- 0453 Feb, [facility] [id number] [place] [address] 63250- 8052 Jan, Arthritis M19.90 [facility] [address] 22755- 8127 Jan, Left hip pain M25.552 and Non-pressure chronic ulcer of right calf, 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 [facility] [id number] [place] [address] 70509- 5279 Jan, Chronic hepatitis C without hepatic coma B18.2 [facility] [id number] [place] [address] 95435- 0783 Jan, Encounter for immunization Z23 ; Venous insufficiency ( chronic) (peripheral) I87.2 ; Non-pressure chronic ulcer of unspecified calf limited to breakdown of skin L97.201 and Gastroesophageal reflux disease, esophagitis presence not specified K21.9 [facility] [id number] [place] [address] 26920- 4023 Jan, [facility] [id number] [place] [address] 61381- 6095 Jan, Chronic hepatitis C without hepatic coma B18.2 and Encounter for immunization Z23 [facility] [id number] [place] [address] 68221- 3798 Jan, Arthritis M19.90 [facility] [id number] [place] [address] 58395- 3892 Jan, [facility] [id number] [place] [address] 84779- 5282 Dec, [facility] [id number] [place] [address] 58141- 5863 Dec, Unspecified episodic mood disorder F39 [facility] [id number] [place] [address] 77690- 6919 Dec, Arthritis M19.90 [facility] [id number] [place] [address] 56352- 3976 Dec, Arthritis M19.90 [facility] [id number] [place] [address] 03546- 2131 Nov, [facility] [id number] [place] [address] 01354- 9219 Nov, [facility] [id number] [place] [address] 72331- 7202 Nov, Other psychoactive substance dependence, uncomplicated F19.20 ; 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, 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 and Chronic hepatitis C without hepatic coma B18.2 [facility] [id number] [place] [address] 56473- 0502 Nov, Arthritis M19.90 [facility] [id number] [place] [address] 68553 -2239 Oct, Partial thickness burn of abdomen, initial encounter T21.22XA [facility] [id number] [place] [address] 10200- 7821 Oct, [facility] [address] [address] 9994 Sep, Arthritis M19.90 [facility] [id number] [address]- 1776 Sep, [facility] [address], [place] [address]- 0987 Sep, [facility] [id number] [place] [address] 04218- 2542 Sep, Unspecified episodic mood disorder F39 ; Chronic hepatitis C without hepatic coma B18.2 and Left hip pain M25.552 [facility] [id number] [place] [address] 71433- 2961 Sep, Arthritis M19.90 and Left hip pain M25.552 [facility] [id number] [place] [address] 14904- 8444 Aug, [facility] [id number] [address]- 4134 Aug, [facility] [address] [place] [address] 52914- 0583 Aug, Chronic hepatitis C without hepatic coma B18.2 [facility] [address], [place] [address]- 5024 Aug, [facility] [address], [place] [address]- 2543 Aug, Chronic hepatitis C without hepatic coma B18.2 [facility] [id number], [place] [address]- 6994 Aug, 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, 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 [facility] [id number], [place] [address]- 9626 Aug, [facility] [id number] [address]- 8833 Aug, Chronic hepatitis C without hepatic coma B18.2 and Hypertension I10 [facility] [id number] [place] [address] 55657- 8460 Jul, [facility] [id number] [place] [address] 38212- 4381 June, [facility] [id number] [place] [address] 63920- 2640 Apr, Fibromyalgia M79.7 ; Left hip pain M25.552 and Decubitus ulcer of sacral region, stage 1 L89.151 [facility] [id number] [place] [address] 83188- 0614 Apr, [facility] [id number] [place] [address] 33888- 7597 Apr, [facility] [id number] [place] [address] 94025- 7303 Feb, [facility] [id number] [place] [address] 63101- 0320 Dec, Anxiety F41.9 ; Combined drug dependence excluding opioids, 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 and Unspecified episodic mood disorder F39 [facility] [id number] [place] [address] 34321- 8559 Dec, [facility] [id number] [place] [address] 90105- 2564 18 Nov, 2015 [facility] [id number] [place] [address] 22348- 2143 11 Nov, 2015 [facility] [id number] [place] [address] 94203- 1150 10 Nov, 2015 Other disorder of impulse control F63.89 and Anxiety F41.9 [facility] [address] [place] [address] 63650- 5234 21 Oct, 2015 [facility] [id number] [place] [address] 50692 -7898 14 Oct, 2015 Open wound of left thigh, initial encounter S71.102A [facility] [id number] [place] [address] 12949- 6359 Oct, [facility] [id number] [place] [address] 00216- 1065 Sep, Unspecified episodic mood disorder F39 ; Other disorder of impulse control 312.39 ; Combined drug dependence excluding opioids, 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 [id number] [place] [address] 06946- 1338 Sep, [facility] [id number] [place] [address] 33705- 3001 Aug, [facility] [id number] [place] [address] 25000- 5963 Aug, [facility] [id number] [place] [address] 13316- 0911 Aug, [facility] [id number] [place] [address] 66133- 7130 Jul, [facility] [id number] [place] [address] 45644- 9154 Jul, 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 ; Anxiety F41.9 ; Other disorder of impulse control 312.39 and Unspecified episodic mood disorder F39 [facility] [id number] [place] [address] 89765- 0687 Jul, Left knee pain M25.562 [facility] [id number] [place] [address] 39914- 7927 Jul, Left knee pain M25.562 and Left hip pain M25.552 [facility] [id number] [place] [address] 28806- 4827 Jul, [facility] [id number] [place] [address] 23918- 5085 June, [facility] [id number] [place] [address] 98084- 8440 June, Combinations of drug dependence excluding opioid type drug, unspecified abuse 304.80 ; Other disorder of impulse control 312.39 ; Unspecified episodic mood disorder F39 and Anxiety F41.9 [facility] [address] [place] [address] 38793- 3489 June, Other fatigue R53.83 ; Headache R51 and Left knee pain M25.562 [facility] [id number] [place] [address] 93168- 7129 June, Unspecified episodic mood disorder F39 ; Combinations of drug dependence excluding opioid type drug, unspecified abuse 304.80 ; Other disorder of impulse control 312.39 and Anxiety F41.9 [facility] [address] [place] [address]- 3395 June, Anxiety F41.9 [facility] [id number] [place] [address] 29969- 6565 June, Pain in left knee M25.562 [facility] [address] [place] [address] 23151- 5459 June, Anxiety F41.9 and Combinations of drug dependence excluding opioid type drug, unspecified abuse 304.80 [facility] [id number] [place] [address] 29692- 2713 June, Unspecified episodic mood disorder 296.90 ; Combinations of drug dependence excluding opioid type drug, unspecified abuse 304.80 and Other disorder of impulse control 312.39 [facility] [id number] [place] [address] 59234- 0166 June, Anxiety F41.9 and Unspecified episodic mood disorder 296.90 [facility] [id number] [place] [address] 36039- 8244 May, Arthritis M19.90 [facility] [id number] [place] [address] 08925- 3826 May, Arthritis M19.90 [facility] [id number] [place] [address] 45887- 0206 May, Anxiety F41.9 ; Combinations of drug dependence excluding opioid type drug, unspecified abuse 304.80 and Other disorder of impulse control 312.39 [facility] [address] [place] [address] 82855- 3067 May, Left knee pain M25.562 [facility] [id number] [place] [address] 74084- 2465 14 May, 2015 Arthritis M19.90 [facility] [address] [place] [address] 20729- 2872 May, [facility] [id number] [place] [address] 72004- 5122 May, Anxiety F41.9 ; Unspecified episodic mood disorder 296.90 ; Combinations of drug dependence excluding opioid type drug, unspecified abuse 304.80 and Other disorder of impulse control 312.39 [facility] [id number] [place] [address] 73765- 3665 May, Left knee pain M25.562 [facility] [id number] [place] [address] 64738- 1470 May, Left knee pain M25.562 ; Combinations of drug dependence excluding opioid type drug, unspecified abuse 304.80 ; Other disorder of impulse control 312.39 ; Fibromyalgia M79.7 ; Hypertension I10 ; Unspecified episodic mood disorder 296.90 and Left hip pain M25.552 [facility] [id number] [place] [address] 88878- 7480 May, Unspecified episodic mood disorder 296.90 ; Other disorder of impulse control 312.39 ; Combinations of drug dependence excluding opioid type drug, unspecified abuse 304.80 and Anxiety F41.9 [facility] [id number] [place] [address] 70977- 6232 May, Left knee pain M25.562 ; Combinations of drug dependence excluding opioid type drug, unspecified abuse 304.80 ; Other disorder of impulse control 312.39 ; Fibromyalgia M79.7 ; Hypertension I10 ; Unspecified episodic mood disorder 296.90 and Left hip pain M25.552 [facility] [address] [place] [address] 50850- 5370 May, Anxiety F41.9 ; Unspecified episodic mood disorder 296.90 ; Other disorder of impulse control 312.39 and Combinations of drug dependence excluding opioid type drug, unspecified abuse 304.80 [facility] [id number] [place] [address] 02230- 4990 Apr, 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 and 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, implants and grafts, initial encounter T84.82XA [facility] [id number] [place] [address] 71792- 4729 Apr, Anxiety F41.9 ; Unspecified episodic mood disorder 296.90 ; Combinations of drug dependence excluding opioid type drug, unspecified abuse 304.80 and Other disorder of impulse control 312.39 [facility] [address] [place] [address] 27485- 2109 Apr, Arthritis M19.90 [facility] [address] [place] [address] 67160- 6042 Apr, Anxiety F41.9 ; Unspecified episodic mood disorder 296.90 ; Combinations of drug dependence excluding opioid type drug, unspecified abuse 304.80 and Other disorder of impulse control 312.39 [facility] [id number] [place] [address] 42563- 2789 17 Apr, 2015 Arthritis M19.90 [facility] [id number] [place] [address] 08717- 7042 15 Apr, 2015 [facility] [id number] [place] [address] 29022- 7796 Apr, [facility] [address] [place] [address] 73508- 9491 Apr, Unspecified episodic mood disorder 296.90 ; Combinations of drug dependence excluding opioid type drug, unspecified abuse 304.80 ; Other disorder of impulse control 312.39 and Anxiety F41.9 [facility] [address] [place] [address] -6726 Apr, Left knee pain M25.562 [facility] [address] [place] [address] 55170- 6335 Apr, [facility] [id number] [place] [address] 78372- 8807 Mar, Unspecified episodic mood disorder 296.90 ; Anxiety F41.9 ; Other disorder of impulse control 312.39 and Combinations of drug dependence excluding opioid type drug, unspecified abuse 304.80 [facility] [id number] [place] [address] 98052- 8315 Mar, Hyperpigmentation L81.9 [facility] [address] [place] [address] 26507- 6674 Mar, Arthritis M19.90 and Anxiety F41.9 [facility] [id number] [place] [address] 48515- 2659 22 Mar, 2015 Unspecified episodic mood disorder F39 ; Combined drug dependence excluding opioids, 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 ; Other disorder of impulse control F63.89 and Anxiety F41.[address] 38496- 9881 12 Mar, 2015 Well woman exam Z01.419 ; Other fatigue R53.83 ; Hot flashes N95.1 ; Depression, unspecified depression type F32.9 and Body mass index (BMI) of 23.0-23.9 in adult Z68.[address] 14310- 3302 11 Mar, 2015 Unspecified episodic mood disorder 296.90 ; Other disorder of impulse control 312.39 and Anxiety F41.[address] 77803- 8310 11 Mar, 2015 Well woman exam Z01.419 [...] of breast Z12.39 and Limited mobility Z74.09 [id number] [place] [address] 31390- 9337 Mar, [facility] [id number] [place] [address] 18426- 7054 Mar, [facility] [address] 14243- 3125 Mar, [facility] [address] 59770- 7591 Mar, Other specified complication of internal orthopedic prosthetic devices, implants and grafts, initial encounter T84.89XA ; Fibromyalgia M79.7 ; Hypertension I10 ; Anemia D64.9 ; Insomnia G47.00 ; Anxiety F41.9 ; Arthritis M19.90 and Migraine G43.909 [place] [address] 76430- 1328 Mar, [facility] [address] 06251- 7970 Feb, [facility] [address] 37012- 9766 Feb, Arthritis M19.90 and Anxiety F41.9 [facility] [address] 78345- 2019 Feb, [facility] [id number] [place] [address] 40163- 6595 Feb, [facility] [address] [address] Feb, [facility] [id number] [place] [address] Feb, [facility] [address] [address] Feb, Anxiety F41.9 [facility] [id number] [place] [id number] Feb, [facility] [address] [address] Feb, [facility] [id number] [address] Feb, 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 and Fibromyalgia M79.7 [facility] [address] [id number] [address] Feb, [facility] [id number] [place] [address]- 3234 Jan, [facility] [address], [place] [address] 1920 Jan, [facility] [id number] [place] [address]12- 9921 Jan, [facility] [id number] [place] [address] 66114- 2634 Jan, [facility] [id number] [place] [address] 25023- 9878 Jan, [facility] [address] [address] 4239 Jan, [facility] [id number] [place] [address] 08[address]- 0258 Jan, [facility] [address] [address] 1996 Jan, [facility] [id number] [place] [address] 909[address]- 2797 Dec, [facility] [address], [place] [address] 77[address] Dec, Left knee pain M25.562 [facility] [id number] [place] [address] 55732- 5816 Dec, Left knee pain M25.562 [facility] [address], [place] [address] 8878 Dec, Fibromyalgia M79.7 ; Hypertension I10 and Arthritis M19.90 [facility] [address] [id number] [place] [address] 1456 Dec, 2014 [facility] [place] [facility] [address] [id number] [place] [address]- 7878 Dec, 2014 [facility] [place] [facility] [address] [id number] [place] [address]- 6975 Dec, [facility] [place] [facility] [address] [id number] [place] [address], [place] [address]- 0561 Dec, [facility] [place] [facility] [address] [id number] [place] [address]- 8722 Nov, [facility] [place] [facility] [address] [id number] [place] [address], [place] [address]- 5429 Nov, [facility] [place] [facility] [address] [facility] [id number] [place] [address]- 7136 Nov, [facility] [place] [facility] [address] [id number] [place] [address], [place] [address]- 0657 Nov, Hypertension I10 [facility] [place] [facility] [address] [id number] [place] [address]- 2299 23 Oct, 2014 [facility] [place] [facility] [address] [facility] [id number] [place] [address]- 5687 17 Oct, 2014 [facility] [place] [facility] [address] [facility] [id number] [place] [address]- 6261 Oct, 2014 [facility] [place] [facility] [address] [id number], [place] [address]- 1625 04 Sep, 2014 [facility] [place] [facility] [address] [id number] [place] [address]- 3686 Oct, 2014 [facility] [place] [facility] [address] [id number] [place] [address]- 8683 Sep, [facility] [place] [facility] [address] [id number] [place] [address]- 9582 Sep, [facility] [place] [facility] [address] [id number], [place] [address] 4075 Sep, Hip pain associated with recalled total hip arthroplasty hardware 996.77 [facility] [address] [id number] [place] [address]- 9787 Sep, [facility] [address] [id number] [place] [address]- 8696 Sep, [facility] [address] [id number] [place] [address]- 3536 Sep, [facility] [address] [id number] [place] [address]- 1701 Aug, [facility] [address] [id number] [place] [address]- 6377 Jul, [facility] [address] [facility] [id number] [place] [address]- 0352 June, [facility] [address] [id number] [place] [address]- 7394 June, [facility] [address] [id number] [place] [address]- 9487 June, [facility] [address] [id number] [place] [address]- 1927 June, [facility] [address] [facility] [id number] [place] 0657 June, [facility] [address] [id number] [place] [address]- 8186 June, [facility] [address] [id number], [place] [address]- 9840 May, [facility] [address] [id number] [place] [address]- 2844 May, [facility] [address] [id number] [place] [address]- 6523 May, [facility] [address] [id number] [address]- 9054 Apr, [facility] [place] [facility] [address] [id number] [place] [address]- 9021 30 Apr, 2014 [facility] [place] [facility] [address] [id number] [place] [address]- 9377 Apr, [facility] [place] [facility] [address] [id number] [place] [address]- 3240 Apr, [facility] [place] [facility] [address] [id number] [place] [address]- 0785 Apr, [facility] [place] [facility] [address] [id number] [place] [address]- 7954 Apr, [facility] [place] [facility] [address] [id number] [place] [address]- 3116 Apr, [facility] [place] [facility] [address] [id number] [place] [address]- 3185 Apr, [facility] [place] [facility] [address] [id number] [place] [address]- 4008 Apr, [facility] [place] [facility] [address] [id number] [place] [address]- 1768 Apr, [facility] [place] [facility] [address] [id number] [place] [address]- 2778 05 Apr, 2014 [facility] [place] [facility] [address] [id number] [place] [address]- 0584 Mar, 2014 [facility] [place] [facility] [address] [id number], [place] [address]- 5826 Mar, 2014 [facility] [place] [facility] [address] [id number] [place] [address]- 1532 16 Mar, 2014 [facility] [place] [facility] [address] [id number] [place] [address]- 0371 16 Mar, 2014 [facility] [place] [facility] [address] [id number] [place] [address]- 4742 10 Mar, 2014 [facility] [place] [facility] [address] [id number] [place] [address]- 2818 10 Mar, 2014 [facility] [address] [id number] [place] [address]- 2910 Feb, [facility] [place] [facility] [address] [id number] [place] [address]- 8997 Feb, [facility] [address] [id number] [place] [address]- 6559 Feb, [facility] [place] [facility] [address] [id number] [place] [address]- 9968 Feb, [facility] [address] [id number] [place] [address]- 8139 Jan, [facility] [address] [id number] [place] [address]- 0207 Jan, [facility] [address] [id number] [place] [address]- 7148 Jan, [facility] [address] [id number] [place] [address]- 6649 Jan, [facility] [address] [id number] [place] [address]- 8132 Dec, [facility] [address] [id number] [place] [address]- 5328 Dec, [facility] [place] [facility] [address] [id number] [place] [address]- 3391 Dec, [facility] [place] [facility] [address] [id number] [place] [address]- 6163 Dec, [facility] [place] [facility] [address] [id number] [place] [address]- 2151 Dec, [facility] [place] [facility] [address] [id number] [place] [address]- 6423 Dec, [facility] [place] [facility] [address] [id number] [place] [address]- 5112 Dec, [facility] [place] [facility] [address] [id number] [place] [address]- 3177 Dec, [facility] [place] [facility] [address] [id number] [place] [address]- 0142 Dec, [facility] [place] [facility] [address] [id number] [place] [address]- 2333 Dec, [facility] [place] [facility] [address] [id number] [place] [address]- 7104 Dec, [facility] [place] [facility] [address] [id number] [place] [address]- 0788 31 Nov, 2013 [facility] [place] [facility] [address] [id number] [place] [address]- 5927 28 Nov, 2013 [facility] [place] [facility] [address] [id number] [place] [address]- 4813 28 Nov, 2013 [facility] [place] [facility] [address] [id number] [place] [address]- 9757 17 Nov, 2013 [facility] [place] [facility] [address] [id number] [place] [address]- 1891 17 Nov, 2013 [facility] [place] [facility] [address] [id number], [place] [address]- 8764 15 Nov, 2013 [facility] [place] [facility] [address] [id number], [place] [address]- 4510 15 Nov, 2013 [facility] [place] [facility] [address] [id number], [place] [address]- 8928 15 Nov, 2013 [facility] [place] [facility] [address] [id number] [place] [address]- 6424 15 Nov, 2013 [facility] [place] [facility] [address] [id number], [place] [address]- 6115 14 Nov, 2013 [facility] [place] [facility] [address] [id number], [place] [address]- 0213 14 Nov, 2013 [facility] [place] [facility] [address] [id number], [place] [address]- 2612 14 Nov, 2013 [facility] [place] [facility] [address] [id number] [place] [address]- 9714 14 Nov, 2013 [facility] [place] [facility] [address] [id number] [place] [address]- 9682 13 Nov, 2013 [facility] [place] [facility] [address] [id number] [place] [address]- 6400 13 Nov, 2013 [facility] [place] [facility] [address] [id number] [place] [address]- 3830 11 Nov, 2013 [facility] [place] [facility] [address] [id number] [place] [address]- 4170 11 Nov, 2013 [facility] [place] [facility] [address] [id number] [place] [address]- 4793 07 Nov, 2013 [facility] [place] [facility] [address] [facility] [id number], [place] [address]- 4644 07 Nov, 2013 [facility] [place] [facility] [address] [id number] [place] [address]- 5303 07 Nov, 2013 [facility] [place] [facility] [address] [facility] [id number] [place] [address]- 4324 07 Nov, 2013 [facility] [place] [facility] [address] [facility] [id number], [place] [address]- 3014 30 Oct, 2013 [facility] [place] [facility] [address] [id number] [place] [address]- 0201 30 Sep, 2013 [facility] [place] [facility] [address] [id number], [place] [address]- 4398 26 Sep, 2013 [facility] [place] [facility] [address] [id number] [place] [address]- 9563 26 Sep, 2013 [facility] [place] [facility] [address] [facility] [id number] [place] [address]- 5065 22 Sep, 2013 [facility] [place] [facility] [address] [id number] [place] [address]- 6331 22 Oct, 2013 [facility] [place] [facility] [address] [id number] [place] [address]- 1141 18 Oct, 2013 [facility] [place] [facility] [address] [id number] [place] [address]- 7236 18 Oct, 2013 [facility] [place] [facility] [address] [id number] [place] [address] 2549 18 Oct, 2013 [facility] [place] [facility] [address] [id number] [place] [address] 2543 18 Oct, 2013 [facility] [place] [facility] [address] [id number] [place] [address]- 3635 Oct, 2013 [facility] [place] [facility] [address] [id number] [place] [address]- 0970 Oct, 2013 [facility] [place] [facility] [address] [id number] [place] [address]- 3833 Oct, [facility] [place] [facility] [address] [id number] [place] [address]- 6702 Oct, 2013 [facility] [place] [facility] [address] [id number] [place] [address]- 1677 Sep, [facility] [place] [facility] [address] [id number] [place] [address]- 1962 Sep, [facility] [place] [facility] [address] [id number] [place] [address]- 7382 Sep, [facility] [place] [facility] [address] [id number] [place] [address]- 7681 Sep, [facility] [place] [facility] [address] [id number] [place] [address]- 8727 Sep, [facility] [place] [facility] [address] [id number] [place] [address]- 9466 Sep, [facility] [place] [facility] [address] [id number] [place] [address]- 5192 Sep, [facility] [place] [facility] [address] [id number] [place] [address]- 8383 Sep, [facility] [place] [facility] [address] [id number] [place] [address]- 4245 Sep, [facility] [place] [facility] [address] [id number] [place] [address]- 3691 Sep, [facility] [place] [facility] [address] [id number] [place] [address]- 6023 Sep, [facility] [place] [facility] [address] [id number] [place] [address]- 3282 Sep, [facility] [place] [facility] [address] [id number] [place] [address]- 7330 Sep, [facility] [place] [facility] [address] [id number] [place] [address]- 1233 Sep, [facility] [place] [facility] [address] [id number] [place] [address]- 6940 Sep, [facility] [place] [facility] [address] [id number] [place] [address]- 8212 Sep, [facility] [place] [facility] [address] [id number] [place] [address]- 0813 Sep, [facility] [place] [facility] [address] [id number] [place] [address]- 4205 Sep, [facility] [place] [facility] [address] [id number] [place] [address]- 6326 Aug, [facility] [place] [facility] [address] [id number] [place] [address]- 7279 Aug, [facility] [place] [facility] [address] [id number] [place] [address]- 4185 Aug, [facility] [place] [facility] [address] [id number] [place] [address]- 5231 Aug, [facility] [place] [facility] [address] [id number] [place] [address]- 4683 Aug, [facility] [place] [facility] [address] [id number] [place] [address]- 6854 Aug, [facility] [place] [facility] [address] [id number] [place] [address]- 9167 Jul, [facility] [place] [facility] [address] [id number] [place] [address]- 0211 Jul, [facility] [place] [facility] [address] [id number] [place] [address]- 4101 Jul, [facility] [place] [facility] [address] [id number] [place] [address]- 8518 Jul, [facility] [place] [facility] [address] [id number] [place] [address]- 8774 June, [facility] [place] [facility] [address] [id number] [place] [address]- 5647 June, [facility] [place] [facility] [address] [id number] [place] [address]- 3195 June, [facility] [place] [facility] [address] [id number] [place] [address]- 3247 June, [facility] [place] [facility] [address] [id number] [place] [address]- 6030 June, [facility] [place] [facility] [address] [id number] [place] [address]- 2916 June, [facility] [place] [facility] [address] [id number] [place] [address]- 0756 June, [facility] [place] [facility] [address] [id number] [place] [address]- 1566 May, [facility] [place] [facility] [address] [id number] [place] [address]- 4629 May, [facility] [place] [facility] [address] [id number] [place] [address]- 6049 May, [facility] [place] [facility] [address] [id number] [place] [address]- 6149 May, [facility] [place] [facility] [address] [id number] [place] [address]- 2285 May, [facility] [place] [facility] [address] [id number] [place] [address]- 7433 May, [facility] [place] [facility] [address] [id number] [place] [address]- 1832 31 Apr, 2013 [facility] [place] [facility] [address] [id number] [place] [address]- 8833 31 Apr, 2013 [facility] [place] [facility] [address] [id number] [place] [address]- 5901 Apr, [facility] [place] [facility] [address] [id number] [place] [address]- 3760 Apr, [facility] [place] [facility] [address] [id number] [place] [address]- 4924 Apr, [facility] [place] [facility] [address] [id number] [place] [address]- 6489 14 Apr, 2013 [facility] [place] [facility] [address] [id number] [place] [address]- 9864 Apr, [facility] [place] [facility] [address] [id number] [place] [address]- 8495 Apr, [facility] [place] [facility] [address] [id number] [place] [address]- 6683 10 Apr, 2013 [facility] [place] [facility] [address] [id number] [place] [address]- 4049 Apr, [facility] [place] [facility] [address] [id number] [place] [address]- 6974 Apr, [facility] [place] [facility] [address] [id number] [place] [address]- 0364 04 Apr, 2013 [facility] [place] [facility] [address] [id number] [place] [address]- 5248 03 Apr, 2013 [facility] [place] [facility] [address] [id number] [place] [address]- 4975 Apr, [facility] [address] [id number] [place] [address]- 5556 Mar, [facility] [place] [facility] [address] [id number] [place] [address]- 4639 Mar, [facility] [place] [facility] [address] [id number] [place] [address]- 0204 Mar, [facility] [place] [facility] [address] [id number] [place] [address]- 0026 Feb, [facility] [place] [facility] [address] [id number] [place] [address]- 1209 Feb, [facility] [place] [facility] [address] [id number] [place] [address]- 0346 Feb, [facility] [place] [facility] [address] [id number] [place] [address]- 6880 Feb, [facility] [place] [facility] [address] [id number] [place] [address]- 5910 Feb, [facility] [place] [facility] [address] [id number] [place] [address]- 1542 Feb, [facility] [place] [facility] [address] [facility] [id number] [place] [address]- 8175 Feb, [facility] [place] [facility] [address] [id number] [place] [address]- 6701 Feb, [facility] [place] [facility] [address] [id number] [place] [address]- 5061 Feb, [facility] [place] [facility] [address] [id number] [place] [address]- 7353 Feb, [facility] [place] [facility] [address] [id number] [place] [address]- 6884 Jan, [facility] [place] [facility] [address] [id number] [place] [address]- 7847 Jan, [facility] [place] [facility] [address] [id number] [place] [address]- 9638 Jan, [facility] [address] [id number] [place] 1006 Jan, [facility] [place] [facility] [address] [id number] [place] 5366 Jan, [facility] [address] [id number] [place] [address]- 7166 Jan, [facility] [address] [id number] [place] [address]- 4814 Jan, [facility] [address] [id number] [place] 6676 Jan, [facility] [address] [id number] [place] [address]- 9938 Jan, [facility] [address] [id number] [place] [address] Jan, [facility] [address] [id number] [place] [address] 17 Jan, 2013 [facility] [address] [id number] [place] [address] 17 Jan, 2013 [facility] [address] [id number] [place] [address] 16 Jan, 2013 [facility] [place] [facility] [address] [id number] [place] [address] Jan, [facility] [address] [id number] [place] [address] 11 Jan, 2013 [facility] [place] [facility] [address] [id number] [place] [address] 09 Jan, 2013 [facility] [place] [facility] [address] [id number] [place] [address] 09 Jan, 2013 [facility] [place] [facility] [address] [id number] [place] [address] Jan, [facility] [place] [facility] [address] [id number] [place] [address] Jan, [facility] [place] [facility] [address] [id number] [place] [address] Jan, [facility] [place] [facility] [address] [id number] [place] [address] Jan, [facility] [place] [facility] [address] [id number] [place] [address] Dec, [facility] [place] [facility] [address] [id number] [place] [address] Dec, [facility] [place] [facility] [address] [id number] [place] [address] Dec, [facility] [place] [facility] [address] [id number] [place] [address] Dec, [facility] [place] [facility] [address] [id number], [place] [address] Dec, [facility] [place] [facility] [address] [id number], [place] [address] Dec, [facility] [place] [facility] [address] [id number], [place] [address] Dec, [facility] [place] [facility] [address] [id number], [place] [address] Dec, [facility] [place] [facility] [address] [id number], [place] [address] Dec, [facility] [place] [facility] [address] [id number], [place] [address] Dec, [facility] [place] [facility] [address] [id number], [place] [address] Nov, [facility] [place] [facility] [address] [id number], [place] [address] Nov, [facility] [place] [facility] [address] [id number] [place] [address] 18 Nov, 2012 [facility] [place] [facility] [address] [id number] [place] [address] 18 Nov, 2012 [facility] [place] [facility] [address] [id number] [place] [address] 11 Nov, 2012 [facility] [place] [facility] [address] [id number] [place] [address] 11 Nov, 2012 [facility] [place] [facility] [address] [id number] [place] [address] 11 Nov, 2012 [facility] [place] [facility] [address] [id number] [place] [address]287 11 Nov, 2012 [facility] [place] [facility] [address] [id number] [place] [address] 10 Nov, 2012 [facility] [place] [facility] [address] [id number] [place] [address] 03 Nov, 2012 [facility] [place] [facility] [address] [id number] [place] [address] 26 Oct, 2012 [facility] [place] [facility] [address] [id number] [place] [address] 26 Oct, 2012 [facility] [place] [facility] [address] [id number] [place] [address] 26 Oct, 2012 [facility] [place] [facility] [address] [id number] [place] [address]17 25 Oct, 2012 [facility] [place] [facility] [address] [id number] [place] [address] 2542 06 Oct, 2012 [facility] [place] [facility] [address] [id number] [place] [address] Sep, [facility] [place] [facility] [address] [id number] [place] [address] Sep, [facility] [place] [facility] [address] [id number] [place] [address] Aug, [facility] [place] [facility] [address] [id number] [place] [address] Aug, [facility] [address] [id number] [place] [address] Aug, [facility] [place] [facility] [address] [id number] [place] [address] Aug, [facility] [address] [id number] [place] [address] Aug, [facility] [address] [id number] [place] [address] Aug, [facility] [place] [facility] [address] [id number] [place] [address] 8471 Aug, [facility] [address] [id number] [place] [address] Jul, [facility] [address] [id number] [place] [address] 47[address] Jul, [facility] [address] [id number] [place] [address] June, [facility] [address] [id number] [place] [address] 37[address] June, [facility] [address] [id number] [place] [address] June, [facility] [place] [facility] [address] [id number] [place] [address] June, [facility] [place] [facility] [address] [id number] [place] [address] 58[address] June, [facility] [place] [facility] [address] [id number] [place] [address]- 280[address] June, [facility] [place] [facility] [address] [id number] [place] [address] June, [facility] [place] [facility] [address] [id number] [place] [address] 9656 June, [facility] [address] [id number] [place] [address]116 June, [facility] [address] [id number] [place] [address] 8012 June, [facility] [address] [id number] [place] [address] 30[address] June, [facility] [address] [id number] [place] [address] 3864 May, [facility] [address] [id number] [place] [address] May, [facility] [address] [id number] [place] [address] May, [facility] [address] [id number] [place] [address] May, [facility] [address] [id number] [place] [address] Apr, [facility] [address] [id number] [place] [address] Apr, [facility] [address] [id number] [place] [address] 67[address] Apr, [facility] [address] [id number] [place] [address] Mar, [facility] [place] [facility] [address] [id number] [place] [address] Mar, [facility] [place] [facility] [address] [id number] [place] [address] Feb, [facility] [place] [facility] [address] [id number] [place] [address]199 Feb, [facility] [place] [facility] [address] [id number] [place] [address] 18[address] Feb, [facility] [place] [facility] [address] [id number] [place] [address] 3[address] 21 Feb, 2012 [facility] [address] [id number] [place] [address] 5256 16 Feb, 2012 [facility] [address] [id number] [place] [address] 2956 14 Feb, 2012 [facility] [address] [id number] [place] [address]- 1684 08 Feb, 2012 [facility] [address] [id number] [place] [address]- 3521 31 Jan, 2012 [facility] [address] [id number] [place] [address] 8188 31 Jan, 2012 [facility] [address] [id number] [place] [address]- 9079 28 Jan, 2012 [facility] [address] [id number] [place] [address]- 5933 17 Jan, 2012 [facility] [address] [id number] [place] [address]- 1103 17 Jan, 2012 [facility] [address] [id number] [place] [address] 7308 Jan, [facility] [address] [id number] [place] [address]- 7062 11 Jan, 2012 [facility] [address] [id number] [place] [address] 0798 10 Jan, 2012 [facility] [address] [id number] [place] [address] 254 10 Jan, 2012 [facility] [address] [id number] [place] [address]- 5596 03 Jan, 2012 [facility] [address] [id number] [place] [address]- 5996 03 Jan, 2012 [facility] [address] [id number] [place] [address] 5761 Dec, [facility] [place] [facility] [address] [id number] [place] [address] 4499 Dec, [facility] [place] [facility] [address] [id number] [place] [address] 5376 Dec, [facility] [place] [facility] [address] [id number] [place] [address] 8450 Dec, [facility] [place] [facility] [address] [id number] [place] [address] 7270 Nov, [facility] [place] [facility] [address] [id number] [place] [address] 0921 Nov, [facility] [place] [facility] [address] [id number] [place] [address] 3776 Nov, [facility] [place] [facility] [address] [id number] [place] [address] 6022 Oct, [facility] [place] [facility] [address] [id number] [place] [address]- 9683 24 Oct, 2011 [facility] [place] [facility] [address] [id number] [place] [address] 4272 21 Oct, 2011 [facility] [place] [facility] [address] [id number] [place] [address] 6[address] Oct, [facility] [place] [facility] [address] [id number] [place] [address] 6984 Oct, [facility] [place] [facility] [address] [id number], [place] [address]697 Oct, [facility] [place] [facility] [address] [id number] [place] [address] 8314 Oct, [facility] [place] [facility] [address] [id number] [place] [address] 4608 Sep, [facility] [place] [facility] [address] [id number] [place] [address] 8431 Sep, [facility] [place] [facility] [address] [id number] [place] [address] 9165 Sep, [facility] [place] [facility] [address] [id number] [place] [address]- 9026 Sep, [facility] [place] [facility] [address] [id number] [place] [address]- 8116 Sep, [facility] [place] [facility] [address] [id number] [place] [address] 1047 Aug, [facility] [place] [facility] [address] [id number] [place] [address] 0243 Aug, [facility] [place] [facility] [address] [id number] [place] [address]- 1290 Aug, [facility] [place] [facility] [address] [id number] [place] [address]- 9853 Aug, [facility] [place] [facility] [address] [id number] [place] [address] 1973 Aug, [facility] [place] [facility] [address] [id number] [place] [address]- 9160 Aug, [facility] [place] [facility] [address] [id number] [place] [address]- 0835 Aug, [facility] [place] [facility] [address] [id number] [place] [address]- 2783 Jul, [facility] [place] [facility] [address] [id number] [place] [address]- 1201 Jul, [facility] [place] [facility] [address] [id number] [place] [address] 7819 Jul, [facility] [place] [facility] [address] [id number] [place] [address]- 5106 Jul, [facility] [place] [facility] [address] [id number] [place] [address]- 4803 Jul, [facility] [place] [facility] [address] [id number] [place] [address]- 9062 Jul, [facility] [place] [facility] [address] [id number] [place] [address] 2512 Jul, [facility] [place] [facility] [address] [id number] [place] [address] Jul, [facility] [place] [facility] [address] [id number] [place] [address]- 8616 Jul, [facility] [place] [facility] [address] [id number] [place] [address] 7240 June, [facility] [place] [facility] [address] [id number] [place] [address] 5216 June, [facility] [place] [facility] [address] [id number] [place] [address]- 6711 June, [facility] [place] [facility] [address] [id number] [place] [address] 8777 June, [facility] [place] [facility] [address] [id number] [place] [address] 6320 June, [facility] [place] [facility] [address] [id number] [place] [address] 9215 June, [facility] [place] [facility] [address] [id number] [place] [address]- 8047 June, [facility] [place] [facility] [address] [id number] [place] [address] 0317 June, [facility] [place] [facility] [address] [id number] [place] [address]- 2243 May, [facility] [place] [facility] [address] [id number] [place] [address]- 5480 May, [facility] [place] [facility] [address] [id number] [place] [address]- 6028 May, [facility] [place] [facility] [address] [id number] [place] [address] 19 May, 2011 [facility] [place] [facility] [address] [id number] [place] [address]- 3781 16 May, 2011 [facility] [place] [facility] [address] [id number] [place] [address]- 0012 16 May, 2011 [facility] [place] [facility] [address] [id number] [place] [address]- 0976 May, [facility] [place] [facility] [address] [facility] [id number] [place] [address]- 3316 Apr, [facility] [place] [facility] [address] [id number] [place] [address]- 0937 Apr, [facility] [place] [facility] [address] [id number] [place] [address]- 3176 Apr, [facility] [place] [facility] [address] [facility] [id number] [place] [address]- 9389 Apr, [facility] [place] [facility] [address] [facility] [id number] [place] [address]- 4689 Apr, [facility] [place] [facility] [address] [id number] [place] [address]- 4413 Apr, [facility] [place] [facility] [address] [facility] [id number] [place] [address]- 3703 Apr, [facility] [place] [facility] [address] [facility] [id number] [place] [address]- 6978 20 Mar, 2011 [facility] [place] [facility] [address] [facility] [id number] [place] [address]- 3154 20 Mar, 2011 [facility] [place] [facility] [address] [id number] [place] [address]- 3562 14 Mar, 2011 [facility] [place] [facility] [address] [id number] [place] [address]- 6216 13 Mar, 2011 [facility] [place] [facility] [address] [facility] [id number] [place] [address]- 6776 09 Mar, 2011 [facility] [place] [facility] [address] [facility] [id number] [place] [address]- 5446 08 Mar, 2011 [facility] [place] [facility] [address] [id number] [place] [address]- 6386 08 Mar, 2011 [facility] [address] [id number] [place] [address]- 9447 Feb, [facility] [place] [facility] [address] [id number] [place] [address]- 3726 Feb, [facility] [address] [id number] [place] [address]- 2776 Feb, [facility] [place] [facility] [address] [id number] [place] [address]- 4728 Feb, [facility] [address] [id number] [place] [address]- 0763 Feb, [facility] [address] [id number] [place] [address]- 5956 Feb, [facility] [address] [id number] [place] [address]- 8273 Feb, [facility] [address] [id number] [place] [address]- 7716 Feb, [facility] [address] [id number] [place] [address]- 0001 Feb, [facility] [address] [id number] [place] [address]- 8676 Feb, [facility] [address] [id number] [place] [address]- 6400 Jan, [facility] [address] [id number] [place] [address] 2544 Jan, [facility] [place] [facility] [address] [id number] [place] [address]- 0286 Jan, [facility] [place] [facility] [address] [id number] [place] [address]- 7606 Jan, [facility] [place] [facility] [address] [id number] [place] [address]- 5121 Jan, [facility] [place] [facility] [address] [id number] [place] [address]- 2910 Jan, [facility] [place] [facility] [address] [id number] [place] [address]- 1729 15 Jan, 2011 [facility] [place] [facility] [address] [id number] [place] [address]- 5250 Jan, [facility] [place] [facility] [address] [id number] [place] [address]- 8394 Jan, [facility] [place] [facility] [address] [id number] [place] [address]- 4680 Jan, [facility] [place] [facility] [address] [id number] [place] [address]- 5013 Jan, [facility] [place] [facility] [address] [id number] [place] [address]- 7893 17 Dec, 2010 [facility] [place] [facility] [address] [id number] [place] [address]- 4896 17 Dec, 2010 [facility] [place] [facility] [address] [id number] [place] [address]- 3091 17 Dec, 2010 [facility] [place] [facility] [address] [id number] [place] [address]- 3112 16 Dec, 2010 [facility] [place] [facility] [address] [id number], [place] [address]- 1878 14 Dec, 2010 [facility] [place] [facility] [address] [id number], [place] [address]- 6438 Dec, [facility] [place] [facility] [address] [id number] [place] [address]- 9733 08 Dec, 2010 [facility] [place] [facility] [address] [id number], [place] [address]- 4234 07 Dec, 2010 [facility] [place] [facility] [address] [id number], [place] [address]- 2189 02 Dec, 2010 [facility] [place] [facility] [address] [id number] [place] [address]- 3262 31 Nov, 2010 [facility] [place] [facility] [address] [id number] [place] [address]- 1120 31 Nov, 2010 [facility] [place] [facility] [address] [id number] [place] [address]16 Nov, [facility] [place] [facility] [address] [id number] [place] [address]- 6037 Nov, [facility] [place] [facility] [address] [id number] [place] [address]- 3745 24 Nov, 2010 [facility] [place] [facility] [address] [id number] [place] [address]- 8358 Nov, [facility] [place] [facility] [address] [id number] [place] [address]- 3299 Aug, [facility] [place] [facility] [address] [id number] [place] [address]- 4561 14 Feb, 2010 [facility] [place] [facility] [address] [id number] [place] [address]- 1146 14 Jan, 2010 [facility] [place] [facility] [address] [id number] [place] [address]- 1263 06 Jan, 2010 [facility] [place] [facility] [address] [facility] [id number] [place] [address]- 9651 Jan, [facility] [place] [facility] [address] [id number] [place] [address]- 4786 Jan, [facility] [place] [facility] [address] [id number] [place] [address] 2544 Jan, [facility] [place] [facility] [address] [id number] [place] [address]- 6067 Dec, [facility] [place] [facility] [address] [id number] [place] [address] 2543 Dec, [facility] [place] [facility] [address] [id number] [place] [address]- 2646 Dec, [facility] [address] [facility] [id number], [place] [address]- 8377 Dec, [facility] [address] [facility] [id number], [place] [address]- 5155 Nov, [facility] [address] [facility] [id number], [place] [address]- 2053 Nov, [facility] [address] [facility] [id number], [place] [address]- 0945 Nov, IMMUNIZATIONS No Known Immunizations SOCIAL HISTORY Never Assessed REASON FOR VISIT Chronic pain f/u--H 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 PLAN OF CARE Activity Details Follow Up 3 Months Reason: VITAL SIGNS Height 68 in 2016-11-14 Temperature 98.0 degrees Fahrenheit 2016-11-14 Heart Rate 80 bpm 2016-11-14 Respiratory Rate 20 2016-11-14 Blood pressure systolic 118 mmHg 2016-11-14 Blood pressure diastolic 70 mmHg 2016-11-14 MEDICATIONS Medication Instructions Dosage Frequency Start Date End Date Duration Status Lyrica 150 MG Orally 3 times a day 1 capsule 8h Active Nabumetone 500 MG Orally Twice a day 1 tablet 12h 30 Active Furosemide 20 MG Orally Once a day ONE TABLET 24h 30 Active Fluoxetine HCl 40 MG Orally Once a day 2 capsule in the morning 24h 30 Active Klonopin 1 MG Orally 3 times a day 1 tablet 8h 30 days Active Pantoprazole Sodium 40 MG Orally Once a day 1 tablet 24h Active Clonidine HCl 0.1 MG Orally twice a day 1 tablet 12h 30 Active Promethazine HCl 25 MG Orally every 12 hrs 1 tablet as needed 12h 30 Active Sumatriptan Succinate 100 MG Orally Once a day 1 tablet as needed one time 24h 30 Active Cyclobenzaprine HCl 10 MG TAKE ONE TABLET BY MOUTH THREE TIMES DAILY 30 Active Aspirin 81 MG Orally Once a day 1 tablet 24h 30 Active Fentanyl 50 MCG/HR Transdermal 72hrs 1 patch to skin Nov, 30 days Active RESULTS Name Result Date Reference Range URINE DRUG SCREEN (IN HOUSE) 2016-11-14 Lot # [id number] Exp date 07/2018 Control COCAINE negative AMPH negative MTD negative THC negative OPIATE negative BENZO negative PCP negative BAR negastive OXY negative MAMP negative TCA negative BUP negative MDMA negative PROCEDURES Procedure Date Ordered Result Body Site LAB NOT BILLED BY [facility] Nov 14, 2016 INSTRUCTIONS MEDICATIONS ADMINISTERED No Known Medications MEDICAL [...]
--- OUTSIDE RECORDS SUMMARY | 2018-01-13 21:12 | XMS REPORT ---
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
--- OUTSIDE RECORDS SUMMARY | 2018-01-13 21:13 | XMS REPORT ---
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 Name Role Phone WYATT SOTO Unavailable PROBLEMS Type Condition ICD9-CM Code ZFD28-AB Code Onset Dates Condition Status SNOMED Code Problem Left hip pain M25.552 Active 19418270 Problem Other chronic pain G89.29 Active 34317107 Problem Chronic hepatitis C without hepatic coma B18.2 Active 476958730 Problem Other obesity due to excess calories E66.09 Active 178197638 Problem Body mass index (BMI) of 34.0-34.9 in adult Z68.34 Active 977600624 Problem Other psychoactive substance dependence, 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 Active 3880717 Problem 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, 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 784393626 Problem Gastroesophageal reflux disease, esophagitis presence not specified K21.9 Active 950767175 Problem Venous insufficiency (chronic) (peripheral) I87.2 Active 939967282 Problem Unspecified episodic mood disorder F39 Active 17667109 Problem Hypertension I10 Active 65617565 Problem Combined drug dependence excluding opioids, 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 Active 512382808 Problem Arthritis M19.90 Active 7466972 Problem 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 Active 03817569 Problem Anxiety F41.9 Active 68524757 ALLERGIES No Information ENCOUNTERS Encounter Location Date Diagnosis [facility] [address] [facility] [id number] [address] Aug, [facility] [address] [address] Aug, Unspecified episodic mood disorder F39 [facility] [id number] [address] Aug, [facility] [id number] [place] [address] 65195- 6293 Jul, Unspecified episodic mood disorder F39 [facility] [id number] [place] [address] 81461- 9210 Jul, [facility] [id number] [place] [address] 59118- 7737 Jul, Arthritis M19.90 [facility] [id number] [place] [address] 34905- 4121 Jul, Left hip pain M25.552 ; Hypertension I10 ; Other obesity due to excess calories E66.09 and Body mass index (BMI) of 34.0-34.9 in adult Z68.34 [facility] [id number] [place] [address] 93112- 7766 Jul, Unspecified episodic mood disorder F39 [facility] [id number] [place] [address] 66491- 7012 June, Gastroesophageal reflux disease, esophagitis presence not specified K21.9 [facility] [id number] [place] [address] 43246- 9466 June, [facility] [id number] [place] [address] 97173- 6780 June, [facility] [id number] [place] [address] 44589- 8514 June, Arthritis M19.90 [facility] [id number] [place] [address] 83853- 9239 June, [facility] [address] [address] June, [facility] [id number] [place] [address] 66507- 7844 June, Unspecified episodic mood disorder F39 [facility] [address] [address] 1098 May, Unspecified episodic mood disorder F39 [facility] [id number] [place] [address] 38404- 8561 May, [place] [address] 12414- 5276 May, Arthritis M19.90 [facility] [id number] [place] [address] 89456 -3336 May, Dysuria R30.0 ; Abscess L02.91 and Acute cystitis without hematuria N30.00 [place] [id number] [place] [address] 40511- 2970 May, Other disorder of impulse control F63.89 ; Unspecified episodic mood disorder F39 ; Combined drug dependence excluding opioids, 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 ; Anxiety F41.9 and Other psychoactive substance dependence, uncomplicated F19.20 [place] [id number] [place] [address] 50472- 1778 May, [place] [id number] [place] [address] 46463- 0865 May, Other disorder of impulse control F63.89 ; Unspecified episodic mood disorder F39 ; Combined drug dependence excluding opioids, 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 ; Other psychoactive substance dependence, uncomplicated F19.20 and Anxiety F41.9 [place] [id number] [place] [address] 83606- 0266 May, Other chronic pain G89.29 ; Left hip pain M25.552 ; Hypertension I10 ; 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, 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 and Unspecified episodic mood disorder F39 [facility] [id number] [place] [address] 42714- 1423 Apr, [facility] [address] 35506 -1320 Apr, Neck pain M54.2 ; Left hip pain M25.552 and Fall, initial encounter W19.XXXA [place] [address] 27208- 9261 Apr, Unspecified episodic mood disorder F39 ; Combined drug dependence excluding opioids, 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 ; Anxiety F41.9 ; Other psychoactive substance dependence, 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 and Other disorder of impulse control F63.89 [facility] [address] [address] 9318 Apr, [facility] [id number] [place] [address] 29578- 4989 Apr, Arthritis M19.90 and Unspecified episodic mood disorder F39 [facility] [id number] [place] [address] 79780- 6726 Apr, Unspecified episodic mood disorder F39 [facility] [id number] [place] [address] 46744- 1202 Apr, [facility] [id number] [place] [address] 63656- 5043 Apr, [facility] [id number] [place] [address] 12321- 0948 Apr, Unspecified episodic mood disorder F39 ; Combined drug dependence excluding opioids, 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 ; Anxiety F41.9 ; Other psychoactive substance dependence, 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 and Other disorder of impulse control F63.89 [facility] [id number] [place] [address] 62139- 2642 Mar, Unspecified episodic mood disorder F39 [facility] [id number] [place] [address] 23766- 0804 Mar, Gastroesophageal reflux disease, esophagitis presence not specified K21.9 [facility] [id number] [place] [address] 08336- 5358 Mar, Arthritis M19.90 and Unspecified episodic mood disorder F39 [facility] [id number] [place] [address] 98836- 5997 Feb, [facility] [id number] [place] [address] 74103- 4152 Feb, [place] [id number] [place] [address] 28316- 6751 Feb, [place] [id number] [place] [address] 00232- 0668 Feb, Arthritis M19.90 [place] [address] 92582- 9956 Feb, Non-pressure chronic ulcer of right calf, 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 ; Unspecified episodic mood disorder F39 and Left hip pain M25.552 [place] [address] 42693- 3741 Feb, [place] [id number] [place] [address] 73971- 4670 Feb, [place] [address] 53554- 7453 Jan, Arthritis M19.90 [place] [id number] [place] [address] 65881- 0447 Jan, Left hip pain M25.552 and Non-pressure chronic ulcer of right calf, 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 [place] [id number] [place] [address] 08567- 6775 Jan, Chronic hepatitis C without hepatic coma B18.2 [place] [address] 14506- 8062 Jan, Encounter for immunization Z23 ; Venous insufficiency ( chronic) (peripheral) I87.2 ; Non-pressure chronic ulcer of unspecified calf limited to breakdown of skin L97.201 and Gastroesophageal reflux disease, esophagitis presence not specified K21.9 [place] [id number] [place] [address] 88109- 2399 Jan, [place] [address] 34407- 3083 Jan, Chronic hepatitis C without hepatic coma B18.2 and Encounter for immunization Z23 [facility] [id number] [place] [address] 73032- 3555 Jan, Arthritis M19.90 [facility] [id number] [place] [address] 78496- 2755 Jan, [facility] [id number] [place] [address] 05900- 1594 Dec, [facility] [id number] [place] [address] 74204- 6736 Dec, Unspecified episodic mood disorder F39 [facility] [id number] [place] [address] 45286- 6620 Dec, Arthritis M19.90 [facility] [id number] [place] [address] 15496- 1809 Dec, Arthritis M19.90 [facility] [id number] [place] [address] 65226- 4558 Nov, [facility] [id number] [place] [address] 89670- 5941 Nov, [facility] [id number] [place] [address] 34991- 2598 Nov, Other psychoactive substance dependence, 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 ; 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, 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 and Chronic hepatitis C without hepatic coma B18.2 [facility] [id number] [place] [address] 11415- 8076 Nov, Arthritis M19.90 [facility] [id number] [place] [address] 38659 -3261 Oct, Partial thickness burn of abdomen, initial encounter T21.22XA [facility] [id number] [place] [address] 29472- 0960 Oct, [facility] [id number] [place] [address] 06582- 6922 Sep, Arthritis M19.90 [facility] [id number] [place] [address] 66229- 3686 Sep, [facility] [id number] [place] [address] 26182- 6156 Sep, [facility] [id number] [place] [address] 97423- 7455 Sep, Unspecified episodic mood disorder F39 ; Chronic hepatitis C without hepatic coma B18.2 and Left hip pain M25.552 [facility] [id number] [place] [address] 43852- 3696 Sep, Arthritis M19.90 and Left hip pain M25.552 [facility] [id number] [place] [address] 23290- 1999 Aug, [facility] [id number] [place] [address] 03814- 6554 Aug, [facility] [id number] [place] [address] 86334- 5011 Aug, Chronic hepatitis C without hepatic coma B18.2 [facility] [id number] [place] [address] 26243- 7889 Aug, [facility] [id number] [place] [address] 79835- 4835 Aug, Chronic hepatitis C without hepatic coma B18.2 [facility] [id number], [place] [address]- 0178 Aug, 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, 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 [facility] [id number] [place] [address] 47425- 8482 Aug, [facility] [id number], [place] [address]- 7876 Aug, Chronic hepatitis C without hepatic coma B18.2 and Hypertension I10 [facility] [id number] [place] [address] 82013- 7257 Jul, [facility] [id number] [place] [address] 77625- 6409 June, [facility] [id number] [place] [address] 42022- 0015 Apr, Fibromyalgia M79.7 ; Left hip pain M25.552 and Decubitus ulcer of sacral region, stage 1 L89.151 [facility] [id number] [place] [address] 97060- 6561 Apr, [facility] [address] 43570- 7801 Apr, [facility] [id number] [place] [address] 65788- 7551 Feb, [facility] [id number] [place] [address] 48089- 3442 Dec, Anxiety F41.9 ; Combined drug dependence excluding opioids, 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 and Unspecified episodic mood disorder F39 [facility] [id number] [place] [address] 53499- 7175 Dec, [facility] [id number] [place] [address] 42844- 9547 18 Nov, 2015 [facility] [id number] [place] [address] 81384- 4177 11 Nov, 2015 [facility] [id number] [place] [address] 08994- 3234 10 Nov, 2015 Other disorder of impulse control F63.89 and Anxiety F41.9 [facility] [id number] [place] [address] 54445- 5359 21 Oct, 2015 [facility] [id number] [place] [address] 41376 -7005 14 Oct, 2015 Open wound of left thigh, initial encounter S71.102A [facility] [id number] [place] [address] 65011- 7060 Oct, [facility] [id number] [place] [address] 14681- 0795 Sep, Unspecified episodic mood disorder F39 ; Other disorder of impulse control 312.39 ; Combined drug dependence excluding opioids, 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 and Anxiety F41.9 [facility] [id number] [place] [address] 28814- 8867 Sep, Other disorder of impulse control 312.39 ; Combined drug dependence excluding opioids, 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 ; Anxiety F41.9 and Unspecified episodic mood disorder F39 [facility] [id number] [place] [address] 50983- 6312 Sep, Other chronic pain G89.29 [facility] [id number] [place] [address] 77119- 2332 Sep, [facility] [id number] [place] [address] 46955- 9216 Sep, [facility] [id number] [place] [address] 23104- 0641 Aug, [facility] [id number] [place] [address] 38484- 0351 Aug, [facility] [id number] [place] [address] 64662- 4265 Aug, [facility] [id number] [place] [address] 50232 2541 Jul, [facility] [id number] [place] [address] 03858- 4313 Jul, [facility] [id number] [place] [address] 03464- 7097 Jul, [facility] [id number] [place] [address] 84632- 5656 Jul, Arthritis M19.90 ; Chronic hepatitis C without hepatic coma B18.2 and Left hip pain M25.552 [facility] [id number] [place] [address] 28053- 1236 Jul, Left knee pain M25.562 [facility] [id number] [place] [address] 53722- 4269 Jul, Combined drug dependence excluding opioids, 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 ; Anxiety F41.9 ; Other disorder of impulse control 312.39 and Unspecified episodic mood disorder F39 [facility] [id number] [place] [address] 60155- 4682 Jul, Left knee pain M25.562 [facility] [id number] [place] [address] 20018- 2904 Jul, Left knee pain M25.562 and Left hip pain M25.552 [facility] [id number] [place] [address] 67440- 3838 Jul, [facility] [id number] [place] [address] 59040- 4377 June, [facility] [id number] [place] [address] 25218- 5380 June, Combinations of drug dependence excluding opioid type drug, unspecified abuse 304.80 ; Other disorder of impulse control 312.39 ; Unspecified episodic mood disorder F39 and Anxiety F41.9 [facility] [id number] [place] [address] 13297- 3051 June, Other fatigue R53.83 ; Headache R51 and Left knee pain M25.562 [facility] [id number] [place] [address] 53076- 7551 June, Unspecified episodic mood disorder F39 ; Combinations of drug dependence excluding opioid type drug, unspecified abuse 304.80 ; Other disorder of impulse control 312.39 and Anxiety F41.9 [facility] [id number] [place] [address] 56606- 8840 June, Anxiety F41.9 [facility] [id number] [place] [address] 37318- 5712 June, Pain in left knee M25.562 [facility] [id number] [place] [address] 56453- 8002 June, Anxiety F41.9 and Combinations of drug dependence excluding opioid type drug, unspecified abuse 304.80 [facility] [id number] [place] [address] 68166- 2764 June, Unspecified episodic mood disorder 296.90 ; Combinations of drug dependence excluding opioid type drug, unspecified abuse 304.80 and Other disorder of impulse control 312.39 [facility] [id number] [place] [address] 46439- 5197 June, Anxiety F41.9 and Unspecified episodic mood disorder 296.90 [facility] [id number] [place] [address] 60093- 6043 May, Arthritis M19.90 [facility] [id number] [place] [address] 81275- 0766 May, Arthritis M19.90 [facility] [id number] [place] [address] 80294- 8334 May, Anxiety F41.9 ; Combinations of drug dependence excluding opioid type drug, unspecified abuse 304.80 and Other disorder of impulse control 312.39 [facility] [id number] [place] [address] 79677- 9005 May, Left knee pain M25.562 [facility] [id number] [place] [address] 48714- 1308 14 May, 2015 Arthritis M19.90 [facility] [id number] [place] [address] 01152- 7912 May, [facility] [id number] [place] [address] 12093- 2517 May, Anxiety F41.9 ; Unspecified episodic mood disorder 296.90 ; Combinations of drug dependence excluding opioid type drug, unspecified abuse 304.80 and Other disorder of impulse control 312.39 [place] [id number] [place] [address] 79483- 2731 May, Left knee pain M25.562 [place] [id number] [place] [address] 84528- 8564 May, Left knee pain M25.562 ; Combinations of drug dependence excluding opioid type drug, unspecified abuse 304.80 ; Other disorder of impulse control 312.39 ; Fibromyalgia M79.7 ; Hypertension I10 ; Unspecified episodic mood disorder 296.90 and Left hip pain M25.552 [place] [id number] [place] [address] 79589- 7403 May, Unspecified episodic mood disorder 296.90 ; Other disorder of impulse control 312.39 ; Combinations of drug dependence excluding opioid type drug, unspecified abuse 304.80 and Anxiety F41.9 [place] [id number] [place] [address] 51442- 9202 May, Left knee pain M25.562 ; Combinations of drug dependence excluding opioid type drug, unspecified abuse 304.80 ; Other disorder of impulse control 312.39 ; Fibromyalgia M79.7 ; Hypertension I10 ; Unspecified episodic mood disorder 296.90 and Left hip pain M25.552 [place] [id number] [place] [address] 38818- 6837 May, Anxiety F41.9 ; Unspecified episodic mood disorder 296.90 ; Other disorder of impulse control 312.39 and Combinations of drug dependence excluding opioid type drug, unspecified abuse 304.80 [place] [id number] [place] [address] 97271- 6255 Apr, 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 and 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, implants and grafts, initial encounter T84.82XA [place] [id number] [place] [address] 14767- 5631 Apr, Anxiety F41.9 ; Unspecified episodic mood disorder 296.90 ; Combinations of drug dependence excluding opioid type drug, unspecified abuse 304.80 and Other disorder of impulse control 312.39 [facility] [address] [place] [address]- 2036 25 Apr, 2015 Arthritis M19.90 [facility] [address] [place] [address]- 2458 Apr, Anxiety F41.9 ; Unspecified episodic mood disorder 296.90 ; Combinations of drug dependence excluding opioid type drug, unspecified abuse 304.80 and Other disorder of impulse control 312.39 [facility] [address] [address]- 4341 17 Apr, 2015 Arthritis M19.90 [facility] [id number] [place] [address] 68963- 0883 15 Apr, 2015 [facility] [id number] [place] [address] 05936- 0751 15 Apr, 2015 [facility] [id number] [place] [address] 68759- 9608 Apr, Unspecified episodic mood disorder 296.90 ; Combinations of drug dependence excluding opioid type drug, unspecified abuse 304.80 ; Other disorder of impulse control 312.39 and Anxiety F41.9 [facility] [address] [address] -1744 Apr, Left knee pain M25.562 [facility] [address] [place] [address]- 4883 Apr, [facility] [address] [place] [address]- 9627 Mar, Unspecified episodic mood disorder 296.90 ; Anxiety F41.9 ; Other disorder of impulse control 312.39 and Combinations of drug dependence excluding opioid type drug, unspecified abuse 304.80 [facility] [address] [place] [address]- 7388 Mar, Hyperpigmentation L81.9 [facility] [id number] [place] [address] 27613- 9754 22 Mar, 2015 Arthritis M19.90 and Anxiety F41.[address] 07646- 7250 22 Mar, 2015 Unspecified episodic mood disorder F39 ; Combined drug dependence excluding opioids, 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 ; Other disorder of impulse control F63.89 and Anxiety F41.[address] 68234- 7366 12 Mar, 2015 Well woman exam Z01.419 ; Other fatigue R53.83 ; Hot flashes N95.1 ; Depression, unspecified depression type F32.9 and Body mass index (BMI) of 23.0-23.9 in adult Z68.[address] 35375- 0671 11 Mar, 2015 Unspecified episodic mood disorder 296.90 ; Other disorder of impulse control 312.39 and Anxiety F41.9 [place] [id number] [place] [address] 67137- 4056 11 Mar, 2015 Well woman exam Z01.419 [...] of breast Z12.39 and Limited mobility Z74.09 [place] [id number] [place] [address] 36022- 3754 10 Mar, [address] 61405- 7340 Mar, [facility] [id number] [place] [address] 02713- 8702 Mar, [facility] [id number] [place] [address] 50329- 7768 Mar, Other specified complication of internal orthopedic prosthetic devices, implants and grafts, initial encounter T84.89XA ; Fibromyalgia M79.7 ; Hypertension I10 ; Anemia D64.9 ; Insomnia G47.00 ; Anxiety F41.9 ; Arthritis M19.90 and Migraine G43.909 [facility] [id number] [place] [address] 64955- 6508 Mar, [facility] [address] 91868- 6660 Feb, [facility] [address] 54302- 4973 Feb, Arthritis M19.90 and Anxiety F41.9 [facility] [id number] [place] [address] 52509- 4058 Feb, [facility] [id number] [place] [address] 25261- 6872 Feb, [facility] [id number] [place] [address] 76500- 2277 Feb, [facility] [id number] [place] [address] 21062- 2293 Feb, [facility] [id number] [place] [address] 21262- 2473 Feb, Anxiety F41.9 [facility] [address] 84893- 2903 Feb, [facility] [id number] [place] [address] 05177- 1709 Feb, [facility] [address] 27070- 0525 Feb, 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 and Fibromyalgia M79.7 [facility] [id number] [place] [address] 58996- 0159 Feb, [facility] [id number] [place] [address] 44929- 7942 Jan, [facility] [id number] [place] [address] 57477- 8012 Jan, [facility] [id number] [place] [address] 96194- 3822 Jan, [facility] [id number] [place] [address] 83565- 0942 Jan, [facility] [id number] [place] [address] 61554- 3087 Jan, [facility] [id number] [place] [address] 12041- 8469 Jan, [facility] [id number] [place] [address] 90749- 4566 Jan, [facility] [id number] [place] [address] 38918- 3762 Jan, [facility] [id number] [place] [address] 55156- 2837 Dec, [facility] [id number] [place] [address] 73804- 7062 Dec, Left knee pain M25.562 [facility] [id number] [place] [address] 26880- 0371 Dec, Left knee pain M25.562 [facility] [id number] [place] [address] 92620- 1836 Dec, Fibromyalgia M79.7 ; Hypertension I10 and Arthritis M19.90 [facility] [id number] [place] [address] 57831- 9602 Dec, [facility] [address] [facility] [id number], [place] [address]- 1840 Dec, [facility] [place] [facility] [address] [id number], [place] [address]- 1286 Dec, [facility] [place] [facility] [address] [facility] [id number][place] 1729 Dec, [facility] [place] [facility] [address] [facility] [id number] [place] [address] 42240- 2467 Nov, [facility] [place] [facility] [address] [facility] [id number] [place] [address]- 5367 Nov, [facility] [place] [facility] [address] [facility] [id number] [place] [address] 28754- 5623 Nov, [facility] [place] [facility] [id number] [place] [address] 91002- 0588 Nov, Hypertension I10 [facility] [place] [facility] [address] [facility] [id number], [place] [address]- 3671 23 Oct, 2014 [facility] [place] [facility] [address] [facility] [id number], [place] [address]- 2205 17 Oct, 2014 [facility] [place] [facility] [address] [id number], [place] [address]- 9697 Oct, [facility] [place] [facility] [address], [place] [address]- 0203 Oct, [facility] [place] [facility] [address] [facility] [id number], [place] [address]- 2531 Oct, [facility] [place] [facility] [address] [facility] [id number], [place] [address]- 7621 Sep, [facility] [place] [facility] [address] [facility] [id number], [place] [address]- 5655 Sep, [facility] [place] [facility] [address] [facility] [id number], [place] [address]- 2668 Sep, Hip pain associated with recalled total hip arthroplasty hardware 996.77 [facility] [place] [facility] [address] [id number] [place] [address]- 7236 Sep, [facility] [place] [facility] [address] [id number] [place] [address]- 7453 Sep, [facility] [place] [facility] [address] [id number] [place] [address]- 3946 Sep, [facility] [place] [facility] [address] [id number] [place] [address]- 3508 Aug, [facility] [place] [facility] [address] [id number] [place] [address]- 3555 Jul, [facility] [place] [facility] [address] [id number] [place] [address]- 8694 June, [facility] [place] [facility] [address] [id number] [place] [address]- 8407 June, [facility] [place] [facility] [address] [id number] [place] [address]- 0469 June, [facility] [place] [facility] [address] [id number] [place] [address]- 9287 June, [facility] [place] [facility] [address] [id number] [place] [address]- 5514 June, [facility] [place] [facility] [address] [id number] [place] [address]- 2739 June, [facility] [place] [facility] [address] [id number] [place] [address]- 9268 May, [facility] [place] [facility] [address] [id number] [place] [address]- 7201 May, [facility] [place] [facility] [address] [id number] [place] [address]- 3982 May, [facility] [place] [facility] [address] [id number] [place] [address]- 2305 Apr, [facility] [place] [facility] [address] [id number], [place] [address]- 5073 30 Apr, 2014 [facility] [place] [facility] [address] [id number] [place] [address]- 2657 Apr, [facility] [place] [facility] [address] [id number] [place] [address]- 8504 Apr, [facility] [place] [facility] [address] [id number] [place] [address]- 3157 Apr, [facility] [place] [facility] [address] [id number] [place] [address]- 0088 13 Apr, 2014 [facility] [place] [facility] [address] [id number] [place] [address]- 7360 Apr, [facility] [place] [facility] [address] [id number] [place] [address]- 2637 Apr, [facility] [place] [facility] [address] [facility] [id number] [place] [address]- 9085 Apr, [facility] [place] [facility] [address] [id number] [place] [address]- 3896 Apr, [facility] [place] [facility] [address] [id number] [place] [address]- 5064 05 Apr, 2014 [facility] [place] [facility] [address] [facility] [id number] [place] [address]- 2831 Mar, 2014 [facility] [place] [facility] [address] [id number] [place] [address]- 8613 Mar, 2014 [facility] [place] [facility] [address] [id number] [place] [address]- 2606 Mar, 2014 [facility] [place] [facility] [address] [id number] [place] [address]- 8031 16 Mar, 2014 [facility] [place] [facility] [address] [id number] [place] [address]- 1587 Mar, 2014 [facility] [place] [facility] [address] [facility] [id number] [place] 6175 10 Fe2014 [facility] [place] [facility] [address] [id number] [place] [address]- 9501 Feb, [facility] [place] [facility] [address] [id number] [place] [address]- 4772 Feb, [facility] [place] [facility] [address] [id number] [place] [address]- 6976 Feb, [facility] [place] [facility] [address] [id number] [place] [address]- 3152 Feb, [facility] [place] [facility] [address] [id number] [place] [address]- 9439 Jan, [facility] [place] [facility] [address] [id number] [place] [address]- 1158 Jan, [facility] [place] [facility] [address] [id number] [place] [address]- 5456 Jan, [facility] [place] [facility] [address] [id number] [place] [address]- 0228 Jan, [facility] [place] [facility] [address] [id number] [place] [address]- 8472 Dec, [facility] [place] [facility] [address] [id number] [place] [address]- 1739 Dec, [facility] [place] [facility] [address] [id number] [place] [address]- 5970 Dec, [facility] [place] [facility] [address] [id number] [place] [address]- 0221 Dec, [facility] [place] [facility] [address] [id number] [place] [address]- 9473 Dec, [facility] [place] [facility] [address] [id number] [place] [address]- 3304 Dec, [facility] [place] [facility] [address] [id number] [place] [address]- 8709 Dec, [facility] [place] [facility] [address] [id number], [place] [address]- 0219 10 Dec, 2013 [facility] [place] [facility] [address] [id number] [place] [address]- 3976 10 Dec, 2013 [facility] [place] [facility] [address] [id number] [place] [address]- 0442 07 Dec, 2013 [facility] [place] [facility] [address] [id number] [place] [address]- 3565 07 Dec, 2013 [facility] [place] [facility] [address] [id number] [place] [address]- 5209 31 Nov, 2013 [facility] [place] [facility] [address] [id number] [place] [address]- 7279 28 Nov, 2013 [facility] [place] [facility] [address] [id number] [place] [address]- 7531 28 Nov, 2013 [facility] [place] [facility] [address] [id number] [place] [address]- 4011 17 Nov, 2013 [facility] [place] [facility] [address] [id number] [place] [address]- 3697 17 Nov, 2013 [facility] [place] [facility] [address] [id number] [place] [address]- 8486 15 Nov, 2013 [facility] [place] [facility] [address] [id number] [place] [address]- 1780 15 Nov, 2013 [facility] [place] [facility] [address] [id number], [place] [address]- 1225 15 Nov, 2013 [facility] [place] [facility] [address] [id number], [place] [address]- 0105 15 Nov, 2013 [facility] [place] [facility] [address] [id number] [place] [address]- 2762 14 Nov, 2013 [facility] [place] [facility] [address] [id number] [place] [address]- 3781 14 Nov, 2013 [facility] [place] [facility] [address] [id number], [place] [address]- 9127 14 Nov, 2013 [facility] [place] [facility] [address] [id number] [place] [address]- 1038 14 Nov, 2013 [facility] [place] [facility] [address] [id number] [place] [address]- 2679 13 Nov, 2013 [facility] [place] [facility] [address] [id number] [place] [address]- 1445 13 Nov, 2013 [facility] [place] [facility] [address] [id number] [place] [address]- 2129 11 Nov, 2013 [facility] [place] [facility] [address] [id number] [place] [address]- 9133 11 Nov, 2013 [facility] [place] [facility] [address] [id number] [place] [address]- 9974 07 Nov, 2013 [facility] [place] [facility] [address] [id number] [place] [address]- 2100 07 Nov, 2013 [facility] [place] [facility] [address] [id number] [place] [address]- 8247 07 Nov, 2013 [facility] [place] [facility] [address] [id number] [place] [address]- 3450 07 Nov, 2013 [facility] [place] [facility] [address] [id number] [place] [address]- 7471 30 Sep, 2013 [facility] [place] [facility] [address] [id number] [place] [address]- 2266 30 Sep, 2013 [facility] [place] [facility] [address] [id number] [place] [address]- 2543 26 Sep, 2013 [facility] [place] [facility] [address] [id number] [place] [address]- 2541 26 Sep, 2013 [facility] [place] [facility] [address] [id number] [place] [address]- 5198 22 Sep, 2013 [facility] [place] [facility] [address] [id number] [place] [address]- 2547 22 Sep, 2013 [facility] [place] [facility] [address] [id number] [place] [address]- 7779 18 Sep, 2013 [facility] [place] [facility] [address] [id number] [place] [address]- 2478 18 Oct, 2013 [facility] [place] [facility] [address] [id number] [place] [address]- 7316 Oct, [facility] [place] [facility] [address] [id number] [place] [address]- 7519 Oct, 2013 [facility] [place] [facility] [address] [id number] [place] [address]- 1064 Oct, 2013 [facility] [place] [facility] [address] [id number] [place] [address]- 9842 Oct, [facility] [place] [facility] [address] [id number] [place] [address]- 8756 Oct, [facility] [place] [facility] [address] [id number] [place] [address]- 5112 Oct, [facility] [place] [facility] [address] [id number] [place] [address]- 5246 Sep, [facility] [place] [facility] [address] [id number] [place] [address]- 1259 Sep, [facility] [place] [facility] [address] [id number] [place] [address]- 9527 Sep, [facility] [place] [facility] [address] [id number] [place] [address]- 3772 Sep, [facility] [place] [facility] [address] [id number] [place] [address]- 9618 Sep, [facility] [place] [facility] [address] [id number] [place] [address]- 6653 Sep, [facility] [place] [facility] [address] [id number] [place] [address]- 4295 Sep, [facility] [place] [facility] [address] [id number] [place] [address]- 4619 Sep, [facility] [place] [facility] [address] [id number] [place] [address]- 5829 Sep, [facility] [place] [facility] [address] [id number] [place] [address]- 8228 Sep, [facility] [place] [facility] [address] [id number] [place] [address]- 8245 Sep, [facility] [place] [facility] [address] [id number] [place] [address]- 4925 Sep, [facility] [place] [facility] [address] [id number] [place] [address]- 9089 Sep, [facility] [place] [facility] [address] [id number] [place] [address]- 3795 Sep, [facility] [place] [facility] [address] [id number] [place] [address]- 0774 Sep, [facility] [place] [facility] [address] [id number] [place] [address]- 9326 Sep, [facility] [place] [facility] [address] [id number] [place] [address]- 6507 Sep, [facility] [place] [facility] [address] [id number] [place] [address]- 5788 Sep, [facility] [place] [facility] [address] [id number] [place] [address]- 9413 Aug, [facility] [place] [facility] [address] [id number] [place] [address]- 7494 Aug, [facility] [place] [facility] [address] [id number] [place] [address]- 4334 Aug, [facility] [place] [facility] [address] [id number] [place] [address]- 8371 Aug, [facility] [place] [facility] [address] [id number] [place] [address]- 7510 Aug, [facility] [place] [facility] [address] [id number] [place] [address]- 8075 Aug, [facility] [place] [facility] [address] [id number] [place] [address]- 8107 Jul, [facility] [place] [facility] [address] [id number] [place] [address]- 5559 Jul, [facility] [place] [facility] [address] [id number] [place] [address]- 9720 Jul, [facility] [place] [facility] [address] [id number] [place] [address]- 5215 Jul, [facility] [place] [facility] [address] [id number] [place] [address]- 0223 June, [facility] [place] [facility] [address] [id number] [place] [address]- 3026 June, [facility] [place] [facility] [address] [id number] [place] [address]- 0531 June, [facility] [place] [facility] [address] [id number] [place] [address]- 4459 June, [facility] [place] [facility] [address] [id number] [place] [address]- 8835 June, [facility] [place] [facility] [address] [id number] [place] [address]- 7907 June, [facility] [place] [facility] [address] [id number] [place] [address]- 2504 June, [facility] [place] [facility] [address] [id number] [place] [address]- 1893 May, [facility] [place] [facility] [address] [id number] [place] [address]- 6887 May, [facility] [place] [facility] [address] [id number] [place] [address]- 1280 May, [facility] [place] [facility] [address] [id number] [place] [address]- 9019 May, [facility] [place] [facility] [address] [id number] [place] [address]- 6900 17 May, 2013 [facility] [place] [facility] [address] [id number] [place] [address]- 6528 17 May, 2013 [facility] [place] [facility] [address] [id number] [place] [address]- 0337 31 Apr, 2013 [facility] [place] [facility] [address] [id number] [place] [address]- 6941 31 Apr, 2013 [facility] [place] [facility] [address] [id number] [place] [address]- 0380 28 Apr, 2013 [facility] [place] [facility] [address] [id number] [place] [address]- 9754 28 Apr, 2013 [facility] [place] [facility] [address] [id number] [place] [address]- 5264 14 Apr, 2013 [facility] [place] [facility] [address] [id number] [place] [address]- 3342 14 Apr, 2013 [facility] [place] [facility] [address] [id number] [place] [address]- 5453 12 Apr, 2013 [facility] [place] [facility] [address] [id number] [place] [address]- 4221 12 Apr, 2013 [facility] [place] [facility] [address] [id number] [place] [address]- 8082 10 Apr, 2013 [facility] [place] [facility] [address] [id number] [place] [address]- 8876 10 Apr, 2013 [facility] [place] [facility] [address] [id number] [place] [address]- 4899 04 Apr, 2013 [facility] [place] [facility] [address] [id number] [place] [address]- 8922 04 Apr, 2013 [facility] [place] [facility] [address] [id number] [place] [address]- 8468 03 Apr, 2013 [facility] [place] [facility] [address] [id number] [place] [address]- 8096 03 Apr, 2013 [facility] [place] [facility] [address] [id number] [place] [address]- 4155 Mar, [facility] [address] [id number] [place] [address]- 8926 Mar, [facility] [address] [id number] [place] [address]- 8716 Mar, [facility] [address] [id number] [place] [address]- 2428 Feb, [facility] [address] [id number] [place] [address] Feb, [facility] [address] [id number] [place] [address] Feb, [facility] [address] [id number] [place] [address] Feb, [facility] [address] [id number] [place] [address] Feb, [facility] [address] [id number] [place] [address] Feb, [facility] [address] [id number] [place] [address] Feb, [facility] [address] [id number] [place] [address] Feb, [facility] [address] [id number] [place] [address] Feb, [facility] [address] [id number] [place] [address] Feb, [facility] [place] [facility] [address] [id number] [place] [address] 56[address] Jan, [facility] [place] [facility] [address] [id number] [place] [address] 14[address] Jan, [facility] [address] [id number] [place] [address] Jan, [facility] [place] [facility] [address] [id number] [place] [address] Jan, [facility] [address] [id number] [place] [address] Jan, [facility] [address] [id number] [place] [address] Jan, [facility] [address] [id number] [place] [address] Jan, [facility] [address] [id number] [place] [address] Jan, [facility] [address] [id number] [place] [address] 85[address] Jan, [facility] [address] [id number] [place] [address] Jan, [facility] [address] [id number] [place] [address] Jan, [facility] [address] [id number] [place] [address] 17 Jan, 2013 [facility] [address] [id number] [place] [address] 16 Jan, 2013 [facility] [address] [id number] [place] [address] Jan, [facility] [place] [facility] [address] [id number], [place] [address] Jan, [facility] [place] [facility] [address] [id number] [place] [address] Jan, [facility] [place] [facility] [address] [id number] [place] [address] Jan, [facility] [place] [facility] [address] [id number] [place] [address]- [address] 05 Jan, 2013 [facility] [place] [facility] [address] [id number], [place] [address] Jan, [facility] [place] [facility] [address] [id number] [place] [address]- [address] Jan, [facility] [place] [facility] [address] [id number], [place] [address] Jan, [facility] [place] [facility] [address] [id number] [place] [address]81 Dec, [facility] [place] [facility] [address] [id number], [place] [address] Dec, [facility] [place] [facility] [address] [id number] [place] [address] 160[address] Dec, [facility] [place] [facility] [address] [id number], [place] [address] Dec, [facility] [place] [facility] [address] [id number], [place] [address]- [address] Dec, [facility] [place] [facility] [address] [id number], [place] [address]- [address] Dec, [facility] [place] [facility] [address] [id number], [place] [address] Dec, [facility] [place] [facility] [address] [id number], [place] [address]- [address] Dec, [facility] [place] [facility] [address] [id number], [place] [address] Dec, [facility] [place] [facility] [address] [id number], [place] [address] Dec, [facility] [place] [facility] [address] [id number], [place] [address] Nov, [facility] [place] [facility] [address] [id number], [place] [address] Nov, [facility] [place] [facility] [address] [id number], [place] [address]- [address] 18 Nov, 2012 [facility] [place] [facility] [address] [id number] [place] [address] 18 Nov, 2012 [facility] [place] [facility] [address] [id number] [place] [address]- [address] Nov, [facility] [place] [facility] [address] [id number] [place] [address] Nov, 2012 [facility] [place] [facility] [address] [id number] [place] [address]- [address]226 Nov, 2012 [facility] [place] [facility] [address] [id number] [place] [address]- [address] Nov, [facility] [place] [facility] [address] [id number] [place] [address] Nov, [facility] [place] [facility] [address] [id number] [place] [address]- [address] Nov, [facility] [place] [facility] [address] [id number] [place] [address]- [address]250 Oct, 2012 [facility] [place] [facility] [address] [id number] [place] [address]259 Oct, [facility] [place] [facility] [address] [id number] [place] [address]- 4465 Oct, [facility] [place] [facility] [address] [id number] [place] [address]- [address] 25 Oct, 2012 [facility] [place] [facility] [address] [id number] [place] [address] Oct, [facility] [place] [facility] [address] [id number] [place] [address] 25[address] Sep, [facility] [place] [facility] [address] [id number] [place] [address]- 56[address] Sep, [facility] [place] [facility] [address] [id number] [place] [address]46 Aug, [facility] [place] [facility] [address] [id number] [place] [address] Aug, [facility] [address] [id number] [place] [address]- [address]30 Aug, [facility] [address] [id number] [place] [address]- [address]605 Aug, [facility] [address] [id number] [place] [address]- 0091 Aug, [facility] [address] [id number] [place] [address]- [address]278 Aug, [facility] [address] [id number] [place] [address]- [address] Aug, [facility] [address] [id number] [place] [address] Jul, [facility] [address] [id number] [place] [address] Jul, [facility] [address] [id number] [place] [address] June, [facility] [address] [id number] [place] [address] 4[address] June, [facility] [address] [id number] [place] [address] 7474 June, [facility] [place] [facility] [address] [id number] [place] [address] June, [facility] [place] [facility] [address] [id number] [place] [address] 0165 June, [facility] [place] [facility] [address] [id number] [place] [address] June, [facility] [place] [facility] [address] [id number] [place] [address] 8911 June, [facility] [place] [facility] [address] [id number] [place] [address] 5[address] June, [facility] [place] [facility] [address] [id number] [place] [address] 12[address] June, [facility] [address] [id number] [place] [address] 6[address] June, [facility] [address] [id number] [place] [address] 9283 June, [facility] [address] [id number] [place] [address] 3084 May, [facility] [place] [facility] [address] [id number] [place] [address] 5702 May, [facility] [address] [id number] [place] [address] 2059 May, [facility] [address] [id number] [place] [address] 5452 May, [facility] [address] [id number] [place] [address] 8274 Apr, [facility] [address] [id number] [place] [address] 7814 Apr, [facility] [address] [id number] [place] [address] 0489 Apr, [facility] [address] [id number] [place] [address] 225[address] Mar, [facility] [address] [id number] [place] [address] 1757 Mar, [facility] [address] [id number] [place] [address] 37[address] Feb, [facility] [place] [facility] [address] [id number] [place] [address] 2504 Feb, [facility] [place] [facility] [address] [id number] [place] [address]- 5198 Feb, [facility] [address] [id number] [place] [address]- 8543 Feb, [facility] [place] [facility] [address] [id number] [place] [address] 8278 16 Feb, 2012 [facility] [address] [id number] [place] [address]- 2146 Feb, [facility] [address] [id number] [place] [address] 3704 08 Feb, 2012 [facility] [address] [id number] [place] [address] 0387 Jan, [facility] [address] [id number] [place] [address] 4799 Jan, [facility] [address] [id number] [place] [address] 1848 Jan, [facility] [address] [id number] [place] [address] 4557 Jan, [facility] [address] [id number] [place] [address] 8110 Jan, [facility] [address] [id number] [place] [address]- 5850 Jan, [facility] [address] [id number] [place] [address] 3393 Jan, [facility] [address] [id number] [place] [address]- 4050 Jan, [facility] [address] [id number] [place] [address]- 9021 Jan, [facility] [address] [id number] [place] [address]- 5133 Jan, [facility] [place] [facility] [address] [id number] [place] [address]- 6025 Jan, [facility] [address] [id number] [place] [address]- 5145 19 Dec, 2011 [facility] [address] [id number] [place] [address]- 3481 Dec, [facility] [place] [facility] [address] [id number] [place] [address]- 0782 Dec, [facility] [place] [facility] [address] [id number] [place] [address]- 8756 Dec, [facility] [place] [facility] [address] [id number] [place] [address] 3964 Nov, [facility] [place] [facility] [address] [id number] [place] [address]- 1619 Nov, [facility] [place] [facility] [address] [id number] [place] [address]- 8427 Nov, [facility] [place] [facility] [address] [id number] [place] [address]- 3097 Oct, [facility] [place] [facility] [address] [id number] [place] [address]- 5773 24 Oct, 2011 [facility] [place] [facility] [address] [id number] [place] [address]- 9560 21 Oct, 2011 [facility] [place] [facility] [address] [id number] [place] [address]- 3976 10 Oct, 2011 [facility] [place] [facility] [address] [id number] [place] [address]- 4807 07 Oct, 2011 [facility] [place] [facility] [address] [id number] [place] [address]- 1762 Oct, [facility] [place] [facility] [address] [id number] [place] [address]- 9479 Oct, [facility] [place] [facility] [address] [id number] [place] [address]- 4849 Sep, [facility] [place] [facility] [address] [id number] [place] [address]- 0121 Sep, [facility] [place] [facility] [address] [id number] [place] [address]- 5747 Sep, [facility] [place] [facility] [address] [id number] [place] [address]- 8475 Sep, [facility] [place] [facility] [address] [id number] [place] [address] 9405 Sep, [facility] [place] [facility] [address] [id number] [place] [address]- 4776 30 Aug, 2011 [facility] [address] [id number] [place] [address]- 9871 Aug, [facility] [place] [facility] [address] [id number] [place] [address]- 0250 17 Aug, 2011 [facility] [address] [id number] [place] [address]- 0371 16 Aug, 2011 [facility] [place] [facility] [address] [id number] [place] [address]- 7472 Aug, [facility] [place] [facility] [address] [id number] [place] [address]- 4321 Aug, [facility] [address] [id number] [place] [address]- 4598 Aug, [facility] [place] [facility] [address] [id number] [place] [address]- 2796 Jul, [facility] [address] [id number] [place] [address]- 0783 Jul, [facility] [place] [facility] [address] [id number] [place] [address]- 0049 Jul, [facility] [place] [facility] [address] [id number] [place] [address]- 3728 Jul, [facility] [place] [facility] [address] [id number] [place] [address]- 5431 Jul, [facility] [place] [facility] [address] [id number] [place] [address]- 2106 Jul, [facility] [place] [facility] [address] [id number] [place] [address] Jul, [facility] [address] [id number] [place] [address]- 0308 Jul, [facility] [place] [facility] [address] [id number] [place] [address]- 3190 Jul, [facility] [place] [facility] [address] [id number] [place] [address]- 1273 June, [facility] [place] [facility] [address] [id number] [place] [address]- 2325 June, [facility] [place] [facility] [address] [id number] [place] [address]- 2943 June, [facility] [place] [facility] [address] [id number] [place] [address]- 9937 June, [facility] [place] [facility] [address] [id number] [place] [address]- 6364 June, [facility] [place] [facility] [address] [id number] [place] [address]- 6606 June, [facility] [place] [facility] [address] [id number] [place] [address]- 8382 June, [facility] [place] [facility] [address] [id number] [place] [address]- 0579 June, [facility] [place] [facility] [address] [id number] [place] [address] 1959 May, [facility] [place] [facility] [address] [id number] [place] [address]- 3844 May, [facility] [place] [facility] [address] [id number] [place] [address]- 5979 May, [facility] [place] [facility] [address] [id number] [place] [address]- 4971 19 May, 2011 [facility] [place] [facility] [address] [id number] [place] [address]- 8787 16 May, 2011 [facility] [place] [facility] [address] [id number], [place] [address]- 5687 16 May, 2011 [facility] [place] [facility] [address] [id number] [place] [address]- 4586 02 May, 2011 [facility] [place] [facility] [address] [facility] [id number] [place] [address]- 2326 27 Apr, 2011 [facility] [place] [facility] [address] [facility] [id number] [place] [address]- 5286 Apr, [facility] [place] [facility] [address] [facility] [id number] [place] [address]- 9872 Apr, [facility] [place] [facility] [address] [facility] [id number] [place] [address]- 6256 Apr, [facility] [place] [facility] [address] [id number] [place] [address]- 4405 Apr, [facility] [place] [facility] [id number] [place] [address]- 4793 Apr, [facility] [place] [facility] [address] [id number] [place] [address]- 7947 Apr, [facility] [place] [facility] [address] [id number] [place] [address]- 7584 Mar, [facility] [place] [facility] [address] [id number] [place] [address]- 3081 Mar, [facility] [place] [facility] [id number] [place] [address]- 5966 14 Mar, 2011 [facility] [place] [facility] [address] [facility] [id number] [place] [address]- 2546 13 Mar, 2011 [facility] [place] [facility] [address] [facility] [id number] [place] [address]- 0476 09 Mar, 2011 [facility] [place] [facility] [address] [facility] [id number] [place] [address]- 5046 08 Mar, 2011 [facility] [place] [facility] [id number] [place] [address]- 7245 08 Mar, 2011 [facility] [address] [id number] [place] [address]- 3367 Feb, [facility] [address] [id number] [place] [address]- 4866 Feb, [facility] [place] [facility] [address] [id number] [place] [address]- 8142 Feb, [facility] [place] [facility] [address] [id number] [place] [address]- 9523 Feb, [facility] [address] [id number] [place] [address]- 8912 Feb, [facility] [address] [id number] [place] [address]- 5456 Feb, [facility] [address] [id number] [place] [address]- 0397 Feb, [facility] [address] [id number] [place] [address]- 0470 Feb, [facility] [address] [id number] [place] [address]- 3185 Feb, [facility] [address] [id number] [place] [address]- 8865 Feb, [facility] [address] [id number] [place] [address]- 3277 Jan, [facility] [place] [facility] [address] [id number], [place] [address]- 7303 Jan, [facility] [place] [facility] [address] [id number] [place] [address]- 9347 Jan, [facility] [place] [facility] [address] [id number] [place] [address]- 8714 Jan, [facility] [place] [facility] [address] [id number] [place] [address]- 3538 Jan, [facility] [place] [facility] [address] [id number], [place] [address]- 0211 Jan, [facility] [place] [facility] [address] [id number] [place] [address]- 1676 15 Jan, 2011 [facility] [place] [facility] [address] [id number] [place] [address]- 7286 15 Jan, 2011 [facility] [place] [facility] [address] [facility] [id number] [place] [address]- 2991 Jan, [facility] [place] [facility] [address] [id number] [place] [address]- 5858 Jan, [facility] [place] [facility] [address] [id number] [place] [address]- 1679 Jan, [facility] [place] [facility] [address] [facility] [id number] [place] [address]- 6428 Dec, [facility] [place] [facility] [address] [facility] [id number] [place] [address]- 3621 17 Dec, 2010 [facility] [place] [facility] [address] [facility] [id number] [place] [address]- 1577 17 Dec, 2010 [facility] [place] [facility] [address] [facility] [id number] [place] [address]- 6921 16 Dec, 2010 [facility] [place] [facility] [address] [facility] [id number] [place] [address]- 5268 14 Dec, 2010 [facility] [place] [facility] [address] [facility] [id number], [place] [address]- 6478 Dec, [facility] [place] [facility] [address] [facility] [id number], [place] [address]- 4984 08 Dec, 2010 [facility] [place] [facility] [address] [facility] [id number] [place] [address]- 6882 07 Dec, 2010 [facility] [place] [facility] [address] [facility] [id number] [place] [address]- 1938 02 Dec, 2010 [facility] [place] [facility] [address] [facility] [id number] [place] [address]- 8147 31 Nov, 2010 [facility] [place] [facility] [address] [id number] [place] [address]- 2436 31 Nov, 2010 [facility] [place] [facility] [address] [id number] [place] [address]- 0140 27 Nov, 2010 [facility] [place] [facility] [address] [id number] [place] [address]- 6985 24 Nov, 2010 [facility] [place] [facility] [address] [id number] [place] [address]- 9684 24 Nov, 2010 [facility] [place] [facility] [address] [id number] [place] [address]- 1205 Nov, [facility] [place] [facility] [address] [id number] [place] [address]- 3987 Aug, [facility] [place] [facility] [address] [id number] [place] [address]- 3205 14 Feb, 2010 [facility] [place] [facility] [address] [id number] [place] [address]- 7313 14 Jan, 2010 [facility] [place] [facility] [address] [id number] [place] [address]- 2968 Jan, [facility] [place] [facility] [address] [id number] [place] [address]- 6954 Jan, [facility] [place] [facility] [address] [id number] [place] [address]01 Jan, [facility] [place] [facility] [address] [id number] [place] [address]- 0338 Jan, [facility] [place] [facility] [address] [id number] [place] [address]- 9633 Dec, [facility] [place] [facility] [address] [id number] [place] [address]- 4389 Dec, [facility] [place] [facility] [address] [id number] [place] [address]- 9976 Dec, [facility] [place] [facility] [address] [id number] [place] [address]- 8248 Dec, [facility] [address] [facility] [id number] [place] [address]- 8976 Nov, [facility] [address] [facility] [id number], [place] [address]- 7746 Nov, [facility] [address] [facility] [id number] [place] [address]- 2854 Nov, IMMUNIZATIONS No Known Immunizations SOCIAL HISTORY [...]
--- OUTSIDE RECORDS SUMMARY | 2018-01-13 21:14 | XMS REPORT ---
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 Name Role Phone WYATT SOTO Unavailable PROBLEMS Type Condition ICD9-CM Code UVK56-CS Code Onset Dates Condition Status SNOMED Code Problem Left hip pain M25.552 Active 14261476 Problem Other chronic pain G89.29 Active 34187057 Problem Chronic hepatitis C without hepatic coma B18.2 Active 960953678 Problem Other obesity due to excess calories E66.09 Active 938007237 Problem Body mass index (BMI) of 34.0-34.9 in adult Z68.34 Active 775480836 Problem Other psychoactive substance dependence, 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 Active 9653904 Problem 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, 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 392669352 Problem Gastroesophageal reflux disease, esophagitis presence not specified K21.9 Active 970675193 Problem Venous insufficiency (chronic) (peripheral) I87.2 Active 790230082 Problem Unspecified episodic mood disorder F39 Active 81263263 Problem Hypertension I10 Active 74210320 Problem Combined drug dependence excluding opioids, 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 [id number] [address] Aug, [facility] [place] [address] [address] Aug, Unspecified episodic mood disorder F39 [facility] [place] [address] [id number] [address] Aug, [facility] [place] [id number] [place] [address] 48288- 8360 Jul, Unspecified episodic mood disorder F39 [facility] [place] [id number] [place] [address] 05308- 8551 Jul, [facility] [place] [id number] [place] [address] 32909- 5396 Jul, Arthritis M19.90 [facility] [place] [id number] [place] [address] 57955- 4759 Jul, Left hip pain M25.552 ; Hypertension I10 ; Other obesity due to excess calories E66.09 and Body mass index (BMI) of 34.0-34.9 in adult Z68.34 [facility] [place] [id number] [place] [address] 57950- 5493 Jul, Unspecified episodic mood disorder F39 [facility] [place] [id number] [place] [address] 10660- 1676 June, Gastroesophageal reflux disease, esophagitis presence not specified K21.9 [facility] [place] [id number] [place] [address] 73562- 8258 June, [facility] [place] [id number] [place] [address] 23066- 5897 June, [facility] [place] [id number] [place] [address] 00944- 7225 June, Arthritis M19.90 [facility] [place] [id number] [place] [address] 17704- 5487 June, [facility] [place] [address] [address] 32[address] June, [facility] [place] [id number] [place] [address] 81468- 2188 June, Unspecified episodic mood disorder F39 [facility] [place] [address] [address] 8866 May, Unspecified episodic mood disorder F39 [facility] [place] [id number] [place] [address] 14625- 5324 May, [place] [address] 57881- 8027 May, Arthritis M19.90 [facility] [id number] [place] [address] 59410 -6234 May, Dysuria R30.0 ; Abscess L02.91 and Acute cystitis without hematuria N30.00 [place] [id number] [place] [address] 69756- 6657 May, Other disorder of impulse control F63.89 ; Unspecified episodic mood disorder F39 ; Combined drug dependence excluding opioids, 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 ; Anxiety F41.9 and Other psychoactive substance dependence, 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 [place] [id number] [place] [address] 36008- 8476 May, [place] [id number] [place] [address] 76926- 9889 May, Other disorder of impulse control F63.89 ; Unspecified episodic mood disorder F39 ; Combined drug dependence excluding opioids, 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 ; Other psychoactive substance dependence, 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 and Anxiety F41.9 [place] [id number] [place] [address] 59469- 8910 May, Other chronic pain G89.29 ; Left hip pain M25.552 ; Hypertension I10 ; 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, 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 and Unspecified episodic mood disorder F39 [facility] [place] [id number] [place] [address] 57159- 2602 Apr, [facility] [address] 76783 -7529 Apr, Neck pain M54.2 ; Left hip pain M25.552 and Fall, initial encounter W19.XXXA [place] [address] 41405- 6271 Apr, Unspecified episodic mood disorder F39 ; Combined drug dependence excluding opioids, 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 ; Anxiety F41.9 ; Other psychoactive substance dependence, 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 and Other disorder of impulse control F63.89 [facility] [place] [address], [place] [address] 4383 Apr, [facility] [place] [id number] [place] [address] 16032- 1455 Apr, Arthritis M19.90 and Unspecified episodic mood disorder F39 [facility] [place] [id number] [place] [address] 77107- 0404 Apr, Unspecified episodic mood disorder F39 [facility] [place] [id number] [place] [address] 48557- 5670 Apr, [facility] [place] [id number] [place] [address] 12136- 2868 Apr, [facility] [place] [id number] [place] [address] 29987- 2889 Apr, Unspecified episodic mood disorder F39 ; Combined drug dependence excluding opioids, 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 ; Anxiety F41.9 ; Other psychoactive substance dependence, 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 and Other disorder of impulse control F63.89 [facility] [place] [id number] [place] [address] 22373- 9263 Mar, Unspecified episodic mood disorder F39 [facility] [place] [id number] [place] [address] 83079- 9368 Mar, Gastroesophageal reflux disease, esophagitis presence not specified K21.9 [facility] [place] [id number] [place] [address] 63984- 0553 Mar, Arthritis M19.90 and Unspecified episodic mood disorder F39 [facility] [place] [id number] [place] [address] 94379- 3620 Feb, [facility] [place] [id number] [place] [address] 30031- 9606 Feb, [place] [id number] [place] [address] 89338- 8536 Feb, [place] [id number] [place] [address] 65987- 9733 Feb, Arthritis M19.90 [place] [address] 73266- 6992 Feb, Non-pressure chronic ulcer of right calf, 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 ; Unspecified episodic mood disorder F39 and Left hip pain M25.552 [place] [address] 76543- 0911 Feb, [place] [id number] [place] [address] 19631- 1781 Feb, [place] [address] 92073- 9498 Jan, Arthritis M19.90 [place] [id number] [place] [address] 02529- 8121 Jan, Left hip pain M25.552 and Non-pressure chronic ulcer of right calf, 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 [place] [id number] [place] [address] 95917- 1112 Jan, Chronic hepatitis C without hepatic coma B18.2 [place] [address] 20584- 3756 Jan, Encounter for immunization Z23 ; Venous insufficiency ( chronic) (peripheral) I87.2 ; Non-pressure chronic ulcer of unspecified calf limited to breakdown of skin L97.201 and Gastroesophageal reflux disease, esophagitis presence not specified K21.9 [place] [id number] [place] [address] 35072- 7316 Jan, [place] [address] 09110- 0597 Jan, Chronic hepatitis C without hepatic coma B18.2 and Encounter for immunization Z23 [facility] [place] [id number] [place] [address] 41955- 4471 Jan, Arthritis M19.90 [facility] [place] [id number] [place] [address] 83369- 2373 Jan, [facility] [place] [id number] [place] [address] 84106- 3356 Dec, [facility] [place] [id number] [place] [address] 52494- 2276 Dec, Unspecified episodic mood disorder F39 [facility] [place] [id number] [place] [address] 71157- 7244 Dec, Arthritis M19.90 [facility] [place] [id number] [place] [address] 88589- 5562 Dec, Arthritis M19.90 [facility] [place] [id number] [place] [address] 69273- 7300 Nov, [facility] [place] [id number] [place] [address] 59576- 4772 Nov, [facility] [place] [id number] [place] [address] 30259- 0532 Nov, Other psychoactive substance dependence, 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 ; 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, 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 and Chronic hepatitis C without hepatic coma B18.2 [facility] [place] [id number] [place] [address] 79282- 1481 Nov, Arthritis M19.90 [facility] [id number] [place] [address] 05150 -6986 Oct, Partial thickness burn of abdomen, initial encounter T21.22XA [facility] [place] [id number] [place] [address] 29277- 9071 Oct, [facility] [place] [id number] [place] [address] 31501- 0978 Sep, Arthritis M19.90 [facility] [place] [id number] [place] [address] 71313- 2896 Sep, [facility] [place] [id number] [place] [address] 08425- 2126 Sep, [facility] [place] [id number] [place] [address] 09378- 8350 Sep, Unspecified episodic mood disorder F39 ; Chronic hepatitis C without hepatic coma B18.2 and Left hip pain M25.552 [facility] [place] [id number] [place] [address] 97613- 2916 Sep, Arthritis M19.90 and Left hip pain M25.552 [facility] [place] [id number] [place] [address] 66326- 6296 Aug, [facility] [place] [id number] [place] [address] 42465- 6976 Aug, [facility] [place] [id number] [place] [address] 35246- 5971 Aug, Chronic hepatitis C without hepatic coma B18.2 [facility] [place] [id number] [place] [address] 41868- 0658 Aug, [facility] [place] [id number] [place] [address] 96530- 8435 Aug, Chronic hepatitis C without hepatic coma B18.2 [facility] [place] [id number] [address]- 7092 Aug, 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, 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 [facility] [place] [id number] [place] [address] 51743- 3929 Aug, [facility] [place] [id number] [address]- 4882 Aug, Chronic hepatitis C without hepatic coma B18.2 and Hypertension I10 [facility] [place] [id number] [place] [address] 88033- 6955 Jul, [facility] [place] [id number] [place] [address] 82280- 8778 June, [facility] [place] [id number] [place] [address] 19463- 9366 Apr, Fibromyalgia M79.7 ; Left hip pain M25.552 and Decubitus ulcer of sacral region, stage 1 L89.151 [facility] [place] [id number] [place] [address] 53381- 1028 Apr, [facility] [place] [address] 42930- 4751 Apr, [facility] [place] [id number] [place] [address] 08408- 7637 Feb, [facility] [place] [id number] [place] [address] 21868- 4991 Dec, Anxiety F41.9 ; Combined drug dependence excluding opioids, 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9 [facility] [place] [id number] [place] [address] 17848- 5761 21 Oct, 2015 [facility] [id number] [place] [address] 92995 -2127 14 Oct, 2015 Open wound of left thigh, initial encounter S71.102A [facility] [place] [id number] [place] [address] 62147- 2021 Oct, [facility] [place] [id number] [place] [address] 50178- 0719 Sep, Unspecified episodic mood disorder F39 ; Other disorder of impulse control 312.39 ; Combined drug dependence excluding opioids, 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 and Anxiety F41.9 [facility] [place] [id number] [place] [address] 33559- 7858 Sep, Other disorder of impulse control 312.39 ; Combined drug dependence excluding opioids, 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 ; Anxiety F41.9 and Unspecified episodic mood disorder F39 [facility] [place] [id number] [place] [address] 50555- 1797 Sep, Other chronic pain G89.29 [facility] [place] [id number] [place] [address] 80069- 6687 Sep, [facility] [place] [id number] [place] [address] 57339- 9300 Sep, [facility] [id number] [place] [address] 83775- 5746 Aug, [facility] [id number] [place] [address] 99882- 8928 Aug, [facility] [id number] [place] [address] 99350- 5337 Aug, [facility] [id number] [place] [address] 49616 2540 Jul, [facility] [id number] [place] [address] 08139- 4075 Jul, [facility] [id number] [place] [address] 41122- 5751 Jul, [facility] [id number] [place] [address] 47029- 9557 Jul, Arthritis M19.90 ; Chronic hepatitis C without hepatic coma B18.2 and Left hip pain M25.552 [facility] [place] [id number] [place] [address] 80011- 5961 Jul, Left knee pain M25.562 [facility] [place] [id number] [place] [address] 68853- 7853 Jul, Combined drug dependence excluding opioids, 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 ; Anxiety F41.9 ; Other disorder of impulse control 312.39 and Unspecified episodic mood disorder F39 [facility] [place] [id number] [place] [address] 17747- 2345 Jul, Left knee pain M25.562 [facility] [place] [id number] [place] [address] 28847- 3045 Jul, Left knee pain M25.562 and Left hip pain M25.552 [facility] [place] [id number] [place] [address] 15587- 0356 Jul, [facility] [place] [id number] [place] [address] 21936- 1251 June, [facility] [place] [id number] [place] [address] 59993- 4517 June, Combinations of drug dependence excluding opioid type drug, unspecified abuse 304.80 ; Other disorder of impulse control 312.39 ; Unspecified episodic mood disorder F39 and Anxiety F41.9 [facility] [place] [id number] [place] [address] 99523- 4105 June, Other fatigue R53.83 ; Headache R51 and Left knee pain M25.562 [facility] [place] [id number] [place] [address] 45850- 7079 June, Unspecified episodic mood disorder F39 ; Combinations of drug dependence excluding opioid type drug, unspecified abuse 304.80 ; Other disorder of impulse control 312.39 and Anxiety F41.9 [facility] [place] [id number] [place] [address] 39964- 3004 June, Anxiety F41.9 [facility] [place] [id number] [place] [address] 69860- 5226 June, Pain in left knee M25.562 [facility] [place] [id number] [place] [address] 95930- 6504 June, Anxiety F41.9 and Combinations of drug dependence excluding opioid type drug, unspecified abuse 304.80 [facility] [place] [id number] [place] [address] 16483- 9550 June, Unspecified episodic mood disorder 296.90 ; Combinations of drug dependence excluding opioid type drug, unspecified abuse 304.80 and Other disorder of impulse control 312.39 [facility] [place] [id number] [place] [address] 65513- 0047 June, Anxiety F41.9 and Unspecified episodic mood disorder 296.90 [facility] [place] [id number] [place] [address] 34816- 8269 May, Arthritis M19.90 [facility] [place] [id number] [place] [address] 85833- 0458 May, Arthritis M19.90 [facility] [place] [id number] [place] [address] 11688- 3655 May, Anxiety F41.9 ; Combinations of drug dependence excluding opioid type drug, unspecified abuse 304.80 and Other disorder of impulse control 312.39 [facility] [place] [address] [place] [address] 42142- 5491 May, Left knee pain M25.562 [facility] [place] [id number] [place] [address] 27319- 7914 14 May, 2015 Arthritis M19.90 [facility] [place] [id number] [place] [address] 06534- 5847 May, [facility] [place] [id number] [place] [address] 54902- 1924 May, Anxiety F41.9 ; Unspecified episodic mood disorder 296.90 ; Combinations of drug dependence excluding opioid type drug, unspecified abuse 304.80 and Other disorder of impulse control 312.39 [place] [address] [place] [address] 24063- 4995 May, Left knee pain M25.562 [place] [id number] [place] [address] 38634- 8546 May, Left knee pain M25.562 ; Combinations of drug dependence excluding opioid type drug, unspecified abuse 304.80 ; Other disorder of impulse control 312.39 ; Fibromyalgia M79.7 ; Hypertension I10 ; Unspecified episodic mood disorder 296.90 and Left hip pain M25.552 [place] [id number] [place] [address] 89855- 7700 May, Unspecified episodic mood disorder 296.90 ; Other disorder of impulse control 312.39 ; Combinations of drug dependence excluding opioid type drug, unspecified abuse 304.80 and Anxiety F41.9 [place] [id number] [place] [address] 36515- 1278 May, Left knee pain M25.562 ; Combinations of drug dependence excluding opioid type drug, unspecified abuse 304.80 ; Other disorder of impulse control 312.39 ; Fibromyalgia M79.7 ; Hypertension I10 ; Unspecified episodic mood disorder 296.90 and Left hip pain M25.552 [place] [address] [place] [address] 30061- 1523 May, Anxiety F41.9 ; Unspecified episodic mood disorder 296.90 ; Other disorder of impulse control 312.39 and Combinations of drug dependence excluding opioid type drug, unspecified abuse 304.80 [place] [address] [place] [address] 80726- 9468 Apr, 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 and 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, implants and grafts, initial encounter T84.82XA [place] [address] [place] [address] 05401- 9772 Apr, Anxiety F41.9 ; Unspecified episodic mood disorder 296.90 ; Combinations of drug dependence excluding opioid type drug, unspecified abuse 304.80 and Other disorder of impulse control 312.39 [facility] [place] [address] [address]- 7732 25 Apr, 2015 Arthritis M19.90 [facility] [place] [address] [address]- 4574 Apr, Anxiety F41.9 ; Unspecified episodic mood disorder 296.90 ; Combinations of drug dependence excluding opioid type drug, unspecified abuse 304.80 and Other disorder of impulse control 312.39 [facility] [place] [address] [address]- 4533 17 Apr, 2015 Arthritis M19.90 [facility] [place] [id number] [place] [address] 23150- 9305 15 Apr, 2015 [facility] [place] [address] [place] [address] 77194- 2128 15 Apr, 2015 [facility] [place] [address] [place] [phone] Apr, Unspecified episodic mood disorder 296.90 ; Combinations of drug dependence excluding opioid type drug, unspecified abuse 304.80 ; Other disorder of impulse control 312.39 and Anxiety F41.9 [facility] [address] [address] Apr, Left knee pain M25.562 [facility], [place] [address] [address] Apr, [facility] [place] [address] [address] Mar, Unspecified episodic mood disorder 296.90 ; Anxiety F41.9 ; Other disorder of impulse control 312.39 and Combinations of drug dependence excluding opioid type drug, unspecified abuse 304.80 [facility] [facility] [place] [address] [address] Mar, Hyperpigmentation L81.9 [facility] [place] [id number] [place] [address] 71930- 4614 22 Mar, 2015 Arthritis M19.90 and Anxiety F41.[address] [address]83- 5124 22 Mar, 2015 Unspecified episodic mood disorder F39 ; Combined drug dependence excluding opioids, 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 ; Other disorder of impulse control F63.89 and Anxiety F41.[address] [address]48- 5000 12 Mar, 2015 Well woman exam Z01.419 ; Other fatigue R53.83 ; Hot flashes N95.1 ; Depression, unspecified depression type F32.9 and Body mass index (BMI) of 23.0-23.9 in adult Z68.[address] 22198- 4120 11 Mar, 2015 Unspecified episodic mood disorder 296.90 ; Other disorder of impulse control 312.39 and Anxiety F41.9 [place] [id number] [place] [address] 65122- 7246 11 Mar, 2015 Well woman exam Z01.419 [...] of breast Z12.39 and Limited mobility Z74.09 [address] [id number] [place] [address] 54585- 4211 10 Mar, [address] 55282- 4686 Mar, [facility] [place] [id number] [place] [address] 18222- 1032 Mar, [facility] [place] [id number] [place] [address] 99762- 1942 Mar, Other specified complication of internal orthopedic prosthetic devices, implants and grafts, initial encounter T84.89XA ; Fibromyalgia M79.7 ; Hypertension I10 ; Anemia D64.9 ; Insomnia G47.00 ; Anxiety F41.9 ; Arthritis M19.90 and Migraine G43.909 [facility] [place] [id number] [place] [address] 43992- 5145 Mar, [facility] [place] [address] [address]280- 8125 Feb, [facility] [place] [address] [address]3227- 6109 Feb, Arthritis M19.90 and Anxiety F41.9 [facility] [place] [id number] [place] [address] 54145- 1546 Feb, [facility] [place] [id number] [place] [address] 06699- 9540 Feb, [facility] [place] [id number] [place] [address] 80620- 9713 Feb, [facility] [place] [id number] [place] [address] 53728- 0495 Feb, [facility] [place] [id number] [place] [address] 99037- 4330 Feb, Anxiety F41.9 [facility] [place] [address] 21678- 9730 Feb, [facility] [place] [id number] [place] [address] 79099- 9086 Feb, [facility] [place] [address] 19230- 6919 Feb, 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 and Fibromyalgia M79.7 [facility] [place] [id number] [place] [address] 19607- 0253 Feb, [facility] [place] [id number] [place] [address] 54274- 4563 Jan, [facility] [place] [id number] [place] [address] 42899- 8180 Jan, [facility] [place] [id number] [place] [address] 91957- 5421 Jan, [facility] [place] [id number] [place] [address] 86464- 4076 Jan, [facility] [place] [id number] [place] [address] 42546- 5319 Jan, [facility] [place] [id number] [place] [address] 61452- 9290 Jan, [facility] [place] [id number] [place] [address] 35304- 6859 Jan, [facility] [place] [id number] [place] [address] 40588- 9229 Jan, [facility] [place] [id number] [place] [address] 04028- 5139 Dec, [facility] [place] [id number] [place] [address] 39704- 0146 Dec, Left knee pain M25.562 [facility] [place] [id number] [place] [address] 07280- 6951 Dec, Left knee pain M25.562 [facility] [place] [id number] [place] [address] 11125- 2212 Dec, Fibromyalgia M79.7 ; Hypertension I10 and Arthritis M19.90 [facility] [place] [id number] [place] [address] 59139- 9815 Dec, [facility] [address] [facility] [id number], [place] [address]- 5292 Dec, [facility] [place] [facility] [address] [id number], [place] [address]- 0353 Dec, [facility] [place] [facility] [address] [facility] [id number] 9644 Dec, [facility] [place] [facility] [address] [facility] [id number] [place] [address] 97382- 8749 Nov, [facility] [place] [facility] [address] [facility] [id number] [place] [address]- 7426 Nov, [facility] [place] [facility] [address] [facility] [id number] [place] [address] 89023- 3094 Nov, [facility] [place] [facility] [id number] [place] [address] 91091- 8834 Nov, Hypertension I10 [facility] [place] [facility] [address] [facility] [id number], [place] [address]- 5190 23 Oct, 2014 [facility] [place] [facility] [address] [facility] [id number], [place] [address]- 2493 17 Oct, 2014 [facility] [place] [facility] [address] [id number], [place] [address]- 6737 Oct, [facility] [place] [facility] [address], [place] [address]- 3569 Oct, [facility] [place] [facility] [address] [facility] [id number], [place] [address]- 6390 Oct, [facility] [place] [facility] [address] [facility] [id number], [place] [address]- 2734 Sep, [facility] [place] [facility] [address] [facility] [id number], [place] [address]- 2311 Sep, [facility] [place] [facility] [address] [facility] [id number], [place] [address]- 8381 Sep, Hip pain associated with recalled total hip arthroplasty hardware 996.77 [facility] [place] [facility] [address] [id number] [place] [address]- 2576 Sep, [facility] [place] [facility] [address] [id number] [place] [address]- 4655 Sep, [facility] [place] [facility] [address] [id number] [place] [address]- 1126 Sep, [facility] [place] [facility] [address] [id number] [place] [address]- 8546 Aug, [facility] [place] [facility] [address] [id number] [place] [address]- 5218 Jul, [facility] [place] [facility] [address] [id number] [place] [address]- 0270 June, [facility] [place] [facility] [address] [id number] [place] [address]- 6797 June, [facility] [place] [facility] [address] [id number] [place] [address]- 3303 June, [facility] [place] [facility] [address] [id number] [place] [address]- 4860 June, [facility] [place] [facility] [address] [id number] [place] [address]- 6641 June, [facility] [place] [facility] [address] [id number] [place] [address]- 1329 June, [facility] [place] [facility] [address] [id number] [place] [address]- 0766 May, [facility] [place] [facility] [address] [id number] [place] [address]- 1821 May, [facility] [place] [facility] [address] [id number] [place] [address]- 0883 May, [facility] [place] [facility] [address] [id number] [place] [address]- 2121 Apr, [facility] [place] [facility] [address] [id number], [place] [address]- 9112 30 Apr, 2014 [facility] [place] [facility] [address] [id number] [place] [address]- 1404 Apr, [facility] [place] [facility] [address] [id number] [place] [address]- 8938 Apr, [facility] [place] [facility] [address] [id number] [place] [address]- 1123 Apr, [facility] [place] [facility] [address] [id number] [place] [address]- 1659 13 Apr, 2014 [facility] [place] [facility] [address] [id number] [place] [address]- 2692 Apr, [facility] [place] [facility] [address] [id number] [place] [address]- 0360 Apr, [facility] [place] [facility] [address] [facility] [id number] [place] [address]- 3137 Apr, [facility] [place] [facility] [address] [id number] [place] [address]- 0545 Apr, [facility] [place] [facility] [address] [id number] [place] [address]- 5063 05 Apr, 2014 [facility] [place] [facility] [address] [facility] [id number] [place] [address]- 7508 Mar, 2014 [facility] [place] [facility] [address] [id number] [place] [address]- 8000 Mar, 2014 [facility] [place] [facility] [address] [id number] [place] [address]- 3589 Mar, 2014 [facility] [place] [facility] [address] [id number] [place] [address]- 2422 16 Mar, 2014 [facility] [place] [facility] [address] [id number] [place] [address]- 4702 Mar, 2014 [facility] [place] [facility] [address] [facility] [id number] [place] 3442 10 Fe2014 [facility] [place] [facility] [address] [id number] [place] [address]- 2269 Feb, [facility] [place] [facility] [address] [id number] [place] [address]- 2053 Feb, [facility] [place] [facility] [address] [id number] [place] [address]- 9839 Feb, [facility] [place] [facility] [address] [id number] [place] [address]- 3073 Feb, [facility] [place] [facility] [address] [id number] [place] [address]- 0001 Jan, [facility] [place] [facility] [address] [id number] [place] [address]- 6028 Jan, [facility] [place] [facility] [address] [id number] [place] [address]- 0048 Jan, [facility] [place] [facility] [address] [id number] [place] [address]- 8740 Jan, [facility] [place] [facility] [address] [id number] [place] [address]- 6578 Dec, [facility] [place] [facility] [address] [id number] [place] [address]- 0825 Dec, [facility] [place] [facility] [address] [id number] [place] [address]- 4494 Dec, [facility] [place] [facility] [address] [id number] [place] [address]- 5882 Dec, [facility] [place] [facility] [address] [id number] [place] [address]- 0787 Dec, [facility] [place] [facility] [address] [id number] [place] [address]- 2706 Dec, [facility] [place] [facility] [address] [id number] [place] [address]- 6176 Dec, [facility] [place] [facility] [address] [id number], [place] [address]- 8848 10 Dec, 2013 [facility] [place] [facility] [address] [id number] [place] [address]- 9294 10 Dec, 2013 [facility] [place] [facility] [address] [id number] [place] [address]- 7598 07 Dec, 2013 [facility] [place] [facility] [address] [id number] [place] [address]- 4423 07 Dec, 2013 [facility] [place] [facility] [address] [id number] [place] [address]- 0989 31 Nov, 2013 [facility] [place] [facility] [address] [id number] [place] [address]- 9492 28 Nov, 2013 [facility] [place] [facility] [address] [id number] [place] [address]- 8362 28 Nov, 2013 [facility] [place] [facility] [address] [id number] [place] [address]- 0566 17 Nov, 2013 [facility] [place] [facility] [address] [id number] [place] [address]- 6779 17 Nov, 2013 [facility] [place] [facility] [address] [id number] [place] [address]- 4582 15 Nov, 2013 [facility] [place] [facility] [address] [id number] [place] [address]- 1023 15 Nov, 2013 [facility] [place] [facility] [address] [id number], [place] [address]- 9484 15 Nov, 2013 [facility] [place] [facility] [address] [id number], [place] [address]- 9461 15 Nov, 2013 [facility] [place] [facility] [address] [id number] [place] [address]- 0167 14 Nov, 2013 [facility] [place] [facility] [address] [id number] [place] [address]- 7053 14 Nov, 2013 [facility] [place] [facility] [address] [id number], [place] [address]- 6016 14 Nov, 2013 [facility] [place] [facility] [address] [id number] [place] [address]- 4995 14 Nov, 2013 [facility] [place] [facility] [address] [id number] [place] [address]- 1309 13 Nov, 2013 [facility] [place] [facility] [address] [id number] [place] [address]- 4603 13 Nov, 2013 [facility] [place] [facility] [address] [id number] [place] [address]- 8619 11 Nov, 2013 [facility] [place] [facility] [address] [id number] [place] [address]- 8419 11 Nov, 2013 [facility] [place] [facility] [address] [id number] [place] [address]- 2477 07 Nov, 2013 [facility] [place] [facility] [address] [id number] [place] [address]- 5268 07 Nov, 2013 [facility] [place] [facility] [address] [id number] [place] [address]- 0827 07 Nov, 2013 [facility] [place] [facility] [address] [id number] [place] [address]- 8434 07 Nov, 2013 [facility] [place] [facility] [address] [id number] [place] [address]- 8929 30 Sep, 2013 [facility] [place] [facility] [address] [id number] [place] [address]- 6721 30 Sep, 2013 [facility] [place] [facility] [address] [id number] [place] [address]- 2547 26 Sep, 2013 [facility] [place] [facility] [address] [id number] [place] [address]- 254 26 Sep, 2013 [facility] [place] [facility] [address] [id number] [place] [address]- 0497 22 Sep, 2013 [facility] [place] [facility] [address] [id number] [place] [address]- 2540 22 Sep, 2013 [facility] [place] [facility] [address] [id number] [place] [address]- 9036 18 Sep, 2013 [facility] [place] [facility] [address] [id number] [place] [address]- 3779 18 Oct, 2013 [facility] [place] [facility] [address] [id number] [place] [address]- 9735 Oct, [facility] [place] [facility] [address] [id number] [place] [address]- 4219 Oct, 2013 [facility] [place] [facility] [address] [id number] [place] [address]- 1549 Oct, 2013 [facility] [place] [facility] [address] [id number] [place] [address]- 7637 Oct, [facility] [place] [facility] [address] [id number] [place] [address]- 4172 Oct, [facility] [place] [facility] [address] [id number] [place] [address]- 1892 Oct, [facility] [place] [facility] [address] [id number] [place] [address]- 4655 Sep, [facility] [place] [facility] [address] [id number] [place] [address]- 7099 Sep, [facility] [place] [facility] [address] [id number] [place] [address]- 0629 Sep, [facility] [place] [facility] [address] [id number] [place] [address]- 7296 Sep, [facility] [place] [facility] [address] [id number] [place] [address]- 9703 Sep, [facility] [place] [facility] [address] [id number] [place] [address]- 6516 Sep, [facility] [place] [facility] [address] [id number] [place] [address]- 4654 Sep, [facility] [place] [facility] [address] [id number] [place] [address]- 1420 Sep, [facility] [place] [facility] [address] [id number] [place] [address]- 9061 Sep, [facility] [place] [facility] [address] [id number] [place] [address]- 6735 Sep, [facility] [place] [facility] [address] [id number] [place] [address]- 1700 Sep, [facility] [place] [facility] [address] [id number] [place] [address]- 6437 Sep, [facility] [place] [facility] [address] [id number] [place] [address]- 0280 Sep, [facility] [place] [facility] [address] [id number] [place] [address]- 8195 Sep, [facility] [place] [facility] [address] [id number] [place] [address]- 1392 Sep, [facility] [place] [facility] [address] [id number] [place] [address]- 7182 Sep, [facility] [place] [facility] [address] [id number] [place] [address]- 6355 Sep, [facility] [place] [facility] [address] [id number] [place] [address]- 9907 Sep, [facility] [place] [facility] [address] [id number] [place] [address]- 1374 Aug, [facility] [place] [facility] [address] [id number] [place] [address]- 5812 Aug, [facility] [place] [facility] [address] [id number] [place] [address]- 9698 Aug, [facility] [place] [facility] [address] [id number] [place] [address]- 6991 Aug, [facility] [place] [facility] [address] [id number] [place] [address]- 2495 Aug, [facility] [place] [facility] [address] [id number] [place] [address]- 0352 Aug, [facility] [place] [facility] [address] [id number] [place] [address]- 4490 Jul, [facility] [place] [facility] [address] [id number] [place] [address]- 5302 Jul, [facility] [place] [facility] [address] [id number] [place] [address]- 8069 Jul, [facility] [place] [facility] [address] [id number] [place] [address]- 8321 Jul, [facility] [place] [facility] [address] [id number] [place] [address]- 2987 June, [facility] [place] [facility] [address] [id number] [place] [address]- 6415 June, [facility] [place] [facility] [address] [id number] [place] [address]- 7788 June, [facility] [place] [facility] [address] [id number] [place] [address]- 3389 June, [facility] [place] [facility] [address] [id number] [place] [address]- 6065 June, [facility] [place] [facility] [address] [id number] [place] [address]- 9076 June, [facility] [place] [facility] [address] [id number] [place] [address]- 3390 June, [facility] [place] [facility] [address] [id number] [place] [address]- 1800 May, [facility] [place] [facility] [address] [id number] [place] [address]- 3991 May, [facility] [place] [facility] [address] [id number] [place] [address]- 4615 May, [facility] [place] [facility] [address] [id number] [place] [address]- 3415 May, [facility] [place] [facility] [address] [id number] [place] [address]- 4852 17 May, 2013 [facility] [place] [facility] [address] [id number] [place] [address]- 9998 17 May, 2013 [facility] [place] [facility] [address] [id number] [place] [address]- 2072 31 Apr, 2013 [facility] [place] [facility] [address] [id number] [place] [address]- 5217 31 Apr, 2013 [facility] [place] [facility] [address] [id number] [place] [address]- 9990 28 Apr, 2013 [facility] [place] [facility] [address] [id number] [place] [address]- 6560 28 Apr, 2013 [facility] [place] [facility] [address] [id number] [place] [address] 14 Apr, 2013 [facility] [place] [facility] [address] [id number] [place] [address] 14 Apr, 2013 [facility] [place] [facility] [address] [id number] [place] [address] 12 Apr, 2013 [facility] [place] [facility] [address] [id number] [place] [address] 12 Apr, 2013 [facility] [place] [facility] [address] [id number] [place] [address] 10 Apr, 2013 [facility] [place] [facility] [address] [id number] [place] [address] 6[address] 10 Apr, 2013 [facility] [place] [facility] [address] [id number] [place] [address] 04 Apr, 2013 [facility] [place] [facility] [address] [id number] [place] [address] 04 Apr, 2013 [facility] [place] [facility] [address] [id number] [place] [address] 30[address] 03 Apr, 2013 [facility] [place] [facility] [address] [id number] [place] [address] 12[address] 03 Apr, 2013 [facility] [place] [facility] [address] [id number] [place] [address] Mar, [facility] [address] [id number] [place] [address] Mar, [facility] [address] [id number] [place] [address] Mar, [facility] [address] [id number] [place] [address] Feb, [facility] [address] [id number] [place] [address] 132[address] Feb, [facility] [address] [id number] [place] [address] Feb, [facility] [address] [id number] [place] [address] 18[address] Feb, [facility] [address] [id number] [place] [address] 49[address] Feb, [facility] [address] [id number] [place] [address] Feb, [facility] [address] [id number] [place] [address]- 5199 Feb, [facility] [address] [id number] [place] [address] 4072 Feb, [facility] [address] [id number] [place] [address] 3499 Feb, [facility] [address] [id number] [place] [address]- 0919 Feb, [facility] [place] [facility] [address] [id number] [place] [address]- 3619 Jan, [facility] [place] [facility] [address] [id number] [place] [address] Jan, [facility] [address] [id number] [place] [address]- 3027 Jan, [facility] [place] [facility] [address] [id number] [place] [address] Jan, [facility] [address] [id number] [place] [address]- 9273 Jan, [facility] [address] [id number] [place] [address] Jan, [facility] [address] [id number] [place] [address]- 6270 Jan, [facility] [address] [id number] [place] [address] Jan, [facility] [address] [id number] [place] [address]- 4197 Jan, [facility] [address] [id number] [place] [address] Jan, [facility] [address] [id number] [place] [address] 6[address] Jan, [facility] [address] [id number] [place] [address]- 0049 17 Jan, 2013 [facility] [address] [id number] [place] [address] 8[address] 16 Jan, 2013 [facility] [address] [id number] [place] [address]- 1734 Jan, [facility] [place] [facility] [address] [id number], [place] [address]- [address] Jan, [facility] [place] [facility] [address] [id number] [place] [address]- 1214 Jan, [facility] [place] [facility] [address] [id number] [place] [address]- 45[address] Jan, [facility] [place] [facility] [address] [id number] [place] [address]- [address] 05 Jan, 2013 [facility] [place] [facility] [address] [id number], [place] [address]- [address] Jan, [facility] [place] [facility] [address] [id number] [place] [address]- 9[address] Jan, [facility] [place] [facility] [address] [id number], [place] [address]- 2667 Jan, [facility] [place] [facility] [address] [id number] [place] [address]- 9625 Dec, [facility] [place] [facility] [address] [id number], [place] [address] Dec, [facility] [place] [facility] [address] [id number] [place] [address]- 5366 Dec, [facility] [place] [facility] [address] [id number], [place] [address]99 Dec, [facility] [place] [facility] [address] [id number], [place] [address] 85[address] Dec, [facility] [place] [facility] [address] [id number], [place] [address]- 2069 Dec, [facility] [place] [facility] [address] [id number], [place] [address]- 2516 Dec, [facility] [place] [facility] [address] [id number], [place] [address]- 6[address] Dec, [facility] [place] [facility] [address] [id number], [place] [address]- 95[address] Dec, [facility] [place] [facility] [address] [id number], [place] [address]- [address]45 Dec, [facility] [place] [facility] [address] [id number], [place] [address] 39[address] Nov, [facility] [place] [facility] [address] [id number], [place] [address] 7969 Nov, [facility] [place] [facility] [address] [id number], [place] [address]28 18 Nov, 2012 [facility] [place] [facility] [address] [id number] [place] [address]- 6325 18 Nov, 2012 [facility] [place] [facility] [address] [id number] [place] [address]- 6651 Nov, [facility] [place] [facility] [address] [id number] [place] [address] Nov, 2012 [facility] [place] [facility] [address] [id number] [place] [address] Nov, 2012 [facility] [place] [facility] [address] [id number] [place] [address] Nov, [facility] [place] [facility] [address] [id number] [place] [address] Nov, [facility] [place] [facility] [address] [id number] [place] [address] 5692 Nov, [facility] [place] [facility] [address] [id number] [place] [address] 9980 Oct, 2012 [facility] [place] [facility] [address] [id number] [place] [address] 3220 Oct, [facility] [place] [facility] [address] [id number] [place] [address] 7762 Oct, [facility] [place] [facility] [address] [id number] [place] [address]- 4294 25 Oct, 2012 [facility] [place] [facility] [address] [id number] [place] [address] 2540 Oct, [facility] [place] [facility] [address] [id number] [place] [address] 2543 Sep, [facility] [place] [facility] [address] [id number] [place] [address]- 0896 Sep, [facility] [place] [facility] [address] [id number] [place] [address] 2546 Aug, [facility] [place] [facility] [address] [id number] [place] [address] Aug, [facility] [address] [id number] [place] [address] 3348 Aug, [facility] [address] [id number] [place] [address]- 0593 Aug, [facility] [address] [id number] [place] [address] 5109 Aug, [facility] [address] [id number] [place] [address]- 8034 Aug, [facility] [address] [id number] [place] [address]- 3043 Aug, [facility] [address] [id number] [place] [address]- 2718 Jul, [facility] [address] [id number] [place] [address]- 1558 Jul, [facility] [address] [id number] [place] [address]- 2945 June, [facility] [address] [id number] [place] [address]- 5876 June, [facility] [address] [id number] [place] [address]- 2316 June, [facility] [place] [facility] [address] [id number] [place] [address]- 7731 June, [facility] [place] [facility] [address] [id number] [place] [address]- 1638 June, [facility] [place] [facility] [address] [id number] [place] [address]- 1523 June, [facility] [place] [facility] [address] [id number] [place] [address]- 5401 June, [facility] [place] [facility] [address] [id number] [place] [address]- 4953 June, [facility] [place] [facility] [address] [id number] [place] [address]- 3302 June, [facility] [address] [id number] [place] [address]- 4945 June, [facility] [address] [id number] [place] [address]- 1114 June, [facility] [address] [id number] [place] [address]- 3769 May, [facility] [place] [facility] [address] [id number] [place] [address]- 8065 May, [facility] [address] [id number] [place] [address]- 5567 May, [facility] [address] [id number] [place] [address]- 4394 May, [facility] [address] [id number] [place] [address]- 1425 Apr, [facility] [address] [id number] [place] [address]- 9938 Apr, [facility] [address] [id number] [place] [address]- 3166 Apr, [facility] [address] [id number] [place] [address]- 1746 Mar, [facility] [address] [id number] [place] [address]- 9059 Mar, [facility] [address] [id number] [place] [address]- 6204 Feb, [facility] [place] [facility] [address] [id number] [place] [address]- 3198 Feb, [facility] [place] [facility] [address] [id number] [place] [address]- 5299 Feb, [facility] [address] [id number] [place] [address]- 2798 Feb, [facility] [place] [facility] [address] [id number] [place] [address]- 4676 16 Feb, 2012 [facility] [address] [id number] [place] [address]- 0393 Feb, [facility] [address] [id number] [place] [address]- 6253 08 Feb, 2012 [facility] [address] [id number] [place] [address]- 9510 Jan, [facility] [address] [id number] [place] [address]- 1276 Jan, [facility] [address] [id number] [place] [address]- 3429 Jan, [facility] [address] [id number] [place] [address]- 7491 Jan, [facility] [address] [id number] [place] [address]- 3970 Jan, [facility] [address] [id number] [place] [address]- 6900 Jan, [facility] [address] [id number] [place] [address]- 5943 Jan, [facility] [address] [id number] [place] [address]- 6430 Jan, [facility] [address] [id number] [place] [address]- 4602 Jan, [facility] [address] [id number] [place] [address]- 0828 Jan, [facility] [place] [facility] [address] [id number] [place] [address]- 4103 Jan, [facility] [address] [id number] [place] [address]- 6499 19 Dec, 2011 [facility] [address] [id number] [place] [address]- 2346 Dec, [facility] [place] [facility] [address] [id number] [place] [address]- 5043 Dec, [facility] [place] [facility] [address] [id number] [place] [address]- 6496 Dec, [facility] [place] [facility] [address] [id number] [place] [address]- 1166 Nov, [facility] [place] [facility] [address] [id number] [place] [address]- 4305 Nov, [facility] [place] [facility] [address] [id number] [place] [address]- 4196 Nov, [facility] [place] [facility] [address] [id number] [place] [address]- 2260 Oct, [facility] [place] [facility] [address] [id number] [place] [address]- 5498 24 Oct, 2011 [facility] [place] [facility] [address] [id number] [place] [address]- 3754 21 Oct, 2011 [facility] [place] [facility] [address] [id number] [place] [address]- 3450 10 Oct, 2011 [facility] [place] [facility] [address] [id number] [place] [address]- 8094 07 Oct, 2011 [facility] [place] [facility] [address] [id number] [place] [address]- 1691 Oct, [facility] [place] [facility] [address] [id number] [place] [address]- 6244 Oct, [facility] [place] [facility] [address] [id number] [place] [address]- 9235 Sep, [facility] [place] [facility] [address] [id number] [place] [address]- 9752 Sep, [facility] [place] [facility] [address] [id number] [place] [address]- 3105 Sep, [facility] [place] [facility] [address] [id number] [place] [address]- 1727 Sep, [facility] [place] [facility] [address] [id number] [place] [address]- 3831 Sep, [facility] [place] [facility] [address] [id number] [place] [address]- 6166 30 Aug, 2011 [facility] [address] [id number] [place] [address]- 9918 Aug, [facility] [place] [facility] [address] [id number] [place] [address]- 0487 17 Aug, 2011 [facility] [address] [id number] [place] [address]- 7323 16 Aug, 2011 [facility] [place] [facility] [address] [id number] [place] [address]- 3920 Aug, [facility] [place] [facility] [address] [id number] [place] [address]- 2605 Aug, [facility] [address] [id number] [place] [address]- 8227 Aug, [facility] [place] [facility] [address] [id number] [place] [address]- 7159 Jul, [facility] [address] [id number] [place] [address]- 2988 Jul, [facility] [place] [facility] [address] [id number] [place] [address]- 9402 Jul, [facility] [place] [facility] [address] [id number] [place] [address]- 5319 Jul, [facility] [place] [facility] [address] [id number] [place] [address]- 1195 Jul, [facility] [place] [facility] [address] [id number] [place] [address]- 5670 Jul, [facility] [place] [facility] [address] [id number] [place] [address] Jul, [facility] [address] [id number] [place] [address]- 9582 Jul, [facility] [place] [facility] [address] [id number] [place] [address]- 1670 Jul, [facility] [place] [facility] [address] [id number] [place] [address]- 6088 June, [facility] [place] [facility] [address] [id number] [place] [address]- 8074 June, [facility] [place] [facility] [address] [id number] [place] [address]- 3744 June, [facility] [place] [facility] [address] [id number] [place] [address]- 5046 June, [facility] [place] [facility] [address] [id number] [place] [address]- 1025 June, [facility] [place] [facility] [address] [id number] [place] [address]- 0825 June, [facility] [place] [facility] [address] [id number] [place] [address]- 1841 June, [facility] [place] [facility] [address] [id number] [place] [address]- 2034 June, [facility] [place] [facility] [address] [id number] [place] [address]- 9381 May, [facility] [place] [facility] [address] [id number] [place] [address]- 3198 May, [facility] [place] [facility] [address] [id number] [place] [address]- 3863 May, [facility] [place] [facility] [address] [id number] [place] [address]- 3001 19 May, 2011 [facility] [place] [facility] [address] [id number] [place] [address]- 8398 16 May, 2011 [facility] [place] [facility] [address] [id number], [place] [address]- 2210 16 May, 2011 [facility] [place] [facility] [address] [id number] [place] [address]- 7846 02 May, 2011 [facility] [place] [facility] [address] [facility] [id number] [place] [address]- 0666 27 Apr, 2011 [facility] [place] [facility] [address] [facility] [id number] [place] [address]- 1946 Apr, [facility] [place] [facility] [address] [facility] [id number] [place] [address]- 4717 Apr, [facility] [place] [facility] [address] [facility] [id number] [place] [address]- 3253 Apr, [facility] [place] [facility] [address] [id number] [place] [address]- 4840 Apr, [facility] [place] [facility] [id number] [place] [address]- 0613 Apr, [facility] [place] [facility] [address] [id number] [place] [address]- 8721 Apr, [facility] [place] [facility] [address] [id number] [place] [address]- 9466 Mar, [facility] [place] [facility] [address] [id number] [place] [address]- 8707 Mar, [facility] [place] [facility] [id number] [place] [address]- 4006 14 Mar, 2011 [facility] [place] [facility] [address] [facility] [id number] [place] [address]- 2546 13 Mar, 2011 [facility] [place] [facility] [address] [facility] [id number] [place] [address]- 2016 09 Mar, 2011 [facility] [place] [facility] [address] [facility] [id number] [place] [address]- 4386 08 Mar, 2011 [facility] [place] [facility] [id number] [place] [address]- 1709 08 Mar, 2011 [facility] [address] [id number] [place] [address]- 2951 Feb, [facility] [address] [id number] [place] [address]- 5196 Feb, [facility] [place] [facility] [address] [id number] [place] [address]- 5168 Feb, [facility] [place] [facility] [address] [id number] [place] [address]- 4305 Feb, [facility] [address] [id number] [place] [address]- 4576 Feb, [facility] [address] [id number] [place] [address]- 6636 Feb, [facility] [address] [id number] [place] [address]- 6888 Feb, [facility] [address] [id number] [place] [address]- 4018 Feb, [facility] [address] [id number] [place] [address]- 5786 Feb, [facility] [address] [id number] [place] [address]- 2393 Feb, [facility] [address] [id number] [place] [address]- 5357 Jan, [facility] [place] [facility] [address] [id number], [place] [address]- 9580 Jan, [facility] [place] [facility] [address] [id number] [place] [address]- 6737 Jan, [facility] [place] [facility] [address] [id number] [place] [address]- 8596 Jan, [facility] [place] [facility] [address] [id number] [place] [address]- 0504 Jan, [facility] [place] [facility] [address] [id number], [place] [address] 1976 Jan, [facility] [place] [facility] [address] [id number] [place] [address]- 8781 15 Jan, 2011 [facility] [place] [facility] [address] [id number] [place] [address]- 2555 15 Jan, 2011 [facility] [place] [facility] [address] [facility] [id number] [place] [address]- 5257 Jan, [facility] [place] [facility] [address] [id number] [place] [address]- 9630 Jan, [facility] [place] [facility] [address] [id number] [place] [address]- 7455 Jan, [facility] [place] [facility] [address] [facility] [id number] [place] [address]- 1192 Dec, [facility] [place] [facility] [address] [facility] [id number] [place] [address]- 6463 17 Dec, 2010 [facility] [place] [facility] [address] [facility] [id number] [place] [address]- 6853 17 Dec, 2010 [facility] [place] [facility] [address] [facility] [id number] [place] [address]- 5379 16 Dec, 2010 [facility] [place] [facility] [address] [facility] [id number] [place] [address]- 1616 14 Dec, 2010 [facility] [place] [facility] [address] [facility] [id number], [place] [address]- 1714 Dec, [facility] [place] [facility] [address] [facility] [id number], [place] [address]- 2573 08 Dec, 2010 [facility] [place] [facility] [address] [facility] [id number] [place] [address]- 9333 07 Dec, 2010 [facility] [place] [facility] [address] [facility] [id number] [place] [address]- 2387 02 Dec, 2010 [facility] [place] [facility] [address] [facility] [id number] [place] [address]- 2534 31 Nov, 2010 [facility] [place] [facility] [address] [id number] [place] [address]- 9841 31 Nov, 2010 [facility] [place] [facility] [address] [id number] [place] [address]- 2689 27 Nov, 2010 [facility] [place] [facility] [address] [id number] [place] [address]- 8459 24 Nov, 2010 [facility] [place] [facility] [address] [id number] [place] [address]- 3395 24 Nov, 2010 [facility] [place] [facility] [address] [id number] [place] [address]- 8410 Nov, [facility] [place] [facility] [address] [id number] [place] [address]- 0720 Aug, [facility] [place] [facility] [address] [id number] [place] [address]- 6679 14 Feb, 2010 [facility] [place] [facility] [address] [id number] [place] [address]- 2625 14 Jan, 2010 [facility] [place] [facility] [address] [id number] [place] [address]- 7235 Jan, [facility] [place] [facility] [address] [id number] [place] [address]- 6990 Jan, [facility] [place] [facility] [address] [id number] [place] [address] Jan, [facility] [place] [facility] [address] [id number] [place] [address]- 3837 Jan, [facility] [place] [facility] [address] [id number] [place] [address]- 4535 Dec, [facility] [place] [facility] [address] [id number] [place] [address]- 7578 Dec, [facility] [place] [facility] [address] [id number] [place] [address]- 2236 Dec, [facility] [place] [facility] [address] [id number] [place] [address]- 6662 Dec, [facility] [place] [address] [facility] [id number] [place] [address]- 0571 Nov, [facility] [place] [address] [facility] [id number], [place] [address]- 8456 Nov, [facility] [place] [address] [facility] [id number] [place] [address]- 9776 Nov, IMMUNIZATIONS No Known Immunizations SOCIAL HISTORY Never Assessed REASON FOR VISIT PLAN OF CARE VITAL SIGNS MEDICATIONS Medication Instructions Dosage Frequency Start Date End Date Duration Status Pantoprazole Sodium 40 mg Orally Once a day 1 tablet 24h 30 days Active Fluoxetine HCl 40 mg Orally Once a day 2 capsule in the morning 24h 30 Active Aspirin 81 MG Orally Once a day 1 tablet 24h 30 Active RESULTS No Results PROCEDURES [...]
--- OUTSIDE RECORDS SUMMARY | 2018-01-13 21:15 | XMS REPORT ---
Author Author WYATT SOTO Organization [facility] Address [address] [place] [address] Care Team Providers Care Magnetic Resonance Imaging Coordinator Name Role Phone WYATT SOTO Unavailable PROBLEMS Type Condition ICD9-CM Code XXC99-UC Code Onset Dates Condition Status SNOMED Code Problem Left hip pain M25.552 Active 06234188 Problem Other chronic pain G89.29 Active 25198633 Problem Chronic hepatitis C without hepatic coma B18.2 Active 684634245 Problem Other obesity due to excess calories E66.09 Active 723209864 Problem Body mass index (BMI) of 34.0-34.9 in adult Z68.34 Active 897032880 Problem Other psychoactive substance dependence, 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 Active 9069513 Problem 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, 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 976589572 Problem Gastroesophageal reflux disease, esophagitis presence not specified K21.9 Active 436481653 Problem Venous insufficiency (chronic) (peripheral) I87.2 Active 287468576 Problem Unspecified episodic mood disorder F39 Active 50236923 Problem Hypertension I10 Active 15861884 Problem Combined drug dependence excluding opioids, 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 Active 068791914 Problem Arthritis M19.90 Active 1950030 Problem 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 Active 11986325 Problem Anxiety F41.9 Active 85987795 ALLERGIES No Information ENCOUNTERS Encounter Location Date Diagnosis [facility] [address] [facility] [id number] [address] Jul, Arthritis M19.90 [facility] [id number] [address] Jul, Left hip pain M25.552 ; Hypertension I10 ; Other obesity due to excess calories E66.09 and Body mass index (BMI) of 34.0-34.9 in adult Z68.34 [facility] [address], [place] [address] Jul, Unspecified episodic mood disorder F39 [facility] [id number] [place] [address] 59952- 4044 June, Gastroesophageal reflux disease, esophagitis presence not specified K21.9 [facility] [id number] [place] [address] 97382- 1928 June, [facility] [id number] [place] [address] 29326- 4679 June, [facility] [id number] [place] [address] 97325- 9013 June, Arthritis M19.90 [facility] [id number] [place] [address] 96488- 9490 June, [facility] [id number] [place] [address] 47628- 7221 June, [facility] [id number] [place] [address] 37480- 6684 June, Unspecified episodic mood disorder F39 [facility] [id number] [place] [address] 20704- 8640 May, Unspecified episodic mood disorder F39 [facility] [address] [place] [address] 61241- 3448 May, [facility] [id number] [place] [address] 64049- 0985 May, Arthritis M19.90 [facility] [address] [place] [address] 31380 -4671 May, Dysuria R30.0 ; Abscess L02.91 and Acute cystitis without hematuria N30.00 [facility] [address], [place] [address] May, Other disorder of impulse control F63.89 ; Unspecified episodic mood disorder F39 ; Combined drug dependence excluding opioids, 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 ; Anxiety F41.9 and Other psychoactive substance dependence, 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 [facility] [id number] [place] [address] 76462- 1352 May, [facility] [id number] [place] [address] 37157- 3711 May, Other disorder of impulse control F63.89 ; Unspecified episodic mood disorder F39 ; Combined drug dependence excluding opioids, 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 ; Other psychoactive substance dependence, 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 and Anxiety F41.9 [facility] [id number] [place] [address] 18186- 8764 May, Other chronic pain G89.29 ; Left hip pain M25.552 ; Hypertension I10 ; 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, 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 and Unspecified episodic mood disorder F39 [facility] [id number] [place] [address] 26261- 2358 Apr, [facility] [id number] [place] [address] 20646 -1320 Apr, Neck pain M54.2 ; Left hip pain M25.552 and Fall, initial encounter W19.XXXA [facility] [id number] [place] [address] 29267- 8961 Apr, Unspecified episodic mood disorder F39 ; Combined drug dependence excluding opioids, 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 ; Anxiety F41.9 ; Other psychoactive substance dependence, 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 and Other disorder of impulse control F63.89 [facility] [address] [place] [address] 17734- 1228 Apr, [facility] [id number] [place] [address] 37134- 7677 Apr, Arthritis M19.90 and Unspecified episodic mood disorder F39 [facility] [id number] [place] [address] 89627- 8701 Apr, Unspecified episodic mood disorder F39 [facility] [address] [place] [address] 82359- 4481 13 Apr, 2017 [facility] [id number] [place] [address] 08525- 4804 Apr, [facility] [id number] [place] [address] 37975- 6557 Apr, Unspecified episodic mood disorder F39 ; Combined drug dependence excluding opioids, 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 ; Anxiety F41.9 ; Other psychoactive substance dependence, 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 and Other disorder of impulse control F63.89 [facility] [id number] [place] [address] 87003- 6251 Mar, Unspecified episodic mood disorder F39 [id number] [place] [address] 24652- 2688 Mar, Gastroesophageal reflux disease, esophagitis presence not specified K21.9 [facility] [id number] [place] [address] 21934- 4488 Mar, Arthritis M19.90 and Unspecified episodic mood disorder F39 [facility] [id number] [place] [address] 69647- 4068 Feb, [facility] [id number] [place] [address] 29311- 5121 Feb, [facility] [id number] [place] [address] 74201- 1111 Feb, [facility] [id number] [place] [address] 60545- 7056 Feb, Arthritis M19.90 [facility] [id number] [place] [address] 67698- 5615 Feb, Non-pressure chronic ulcer of right calf, 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 ; Unspecified episodic mood disorder F39 and Left hip pain M25.552 [facility] [id number] [place] [address] 43546- 6664 Feb, [facility] [id number] [place] [address] 98818- 0094 Feb, [facility] [id number] [place] [address] 86990- 3414 Jan, Arthritis M19.90 [facility] [id number] [place] [address] 37129- 7832 Jan, Left hip pain M25.552 and Non-pressure chronic ulcer of right calf, 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 [facility] [id number] [place] [address] 69298- 9800 Jan, Chronic hepatitis C without hepatic coma B18.2 [facility] [id number] [place] [address] 30625- 7197 Jan, Encounter for immunization Z23 ; Venous insufficiency ( chronic) (peripheral) I87.2 ; Non-pressure chronic ulcer of unspecified calf limited to breakdown of skin L97.201 and Gastroesophageal reflux disease, esophagitis presence not specified K21.9 [facility] [id number] [place] [address] 57183- 8969 Jan, [facility] [id number] [place] [address] 83981- 0151 Jan, Chronic hepatitis C without hepatic coma B18.2 and Encounter for immunization Z23 [facility] [id number] [place] [address] 70447- 1460 Jan, Arthritis M19.90 [facility] [id number] [place] [address] 34118- 6032 Jan, [facility] [id number] [place] [address] 02180- 8780 Dec, [facility] [id number] [place] [address] 80515- 5421 Dec, Unspecified episodic mood disorder F39 [facility] [id number] [place] [address] 05857- 5045 Dec, Arthritis M19.90 [facility] [id number] [place] [address] 39343- 4442 Dec, Arthritis M19.90 [facility] [id number] [place] [address] 72289- 7551 Nov, [facility] [id number] [place] [address] 50874- 3604 Nov, [facility] [id number] [place] [address] 91899- 7540 Nov, Other psychoactive substance dependence, 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 ; 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, 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 and Chronic hepatitis C without hepatic coma B18.2 [facility] [id number] [place] [address] 02908- 2185 Nov, Arthritis M19.90 [facility] [id number] [place] [address] 91203 -1255 Oct, Partial thickness burn of abdomen, initial encounter T21.22XA [facility] [id number] [place] [address] 74622- 0495 Oct, [facility] [address] [place] [address] 60493- 5868 Sep, Arthritis M19.90 [facility] [id number] [place] [address] 75214- 9781 Sep, [facility] [id number] [place] [address] 11883- 3525 Sep, [facility] [id number] [place] [address] 31858- 7044 Sep, Unspecified episodic mood disorder F39 ; Chronic hepatitis C without hepatic coma B18.2 and Left hip pain M25.552 [facility] [id number] [place] [address] 51716- 6750 Sep, Arthritis M19.90 and Left hip pain M25.552 [facility] [id number] [address] 6053 Aug, [facility] [id number] [place] [address] 84002- 2868 Aug, [facility] [id number] [place] [address] 93054- 2602 Aug, Chronic hepatitis C without hepatic coma B18.2 [facility] [id number] [place] [address] 87963- 6144 Aug, [facility] [id number] [place] [address] 02539- 0715 Aug, Chronic hepatitis C without hepatic coma B18.2 [facility] [id number] [place] [address] 08995- 7854 Aug, 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, 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 [facility] [id number] [place] [address] 27732- 4890 Aug, [facility] [id number] [place] [address] 30746- 4177 Aug, Chronic hepatitis C without hepatic coma B18.2 and Hypertension I10 [facility] [id number] [address]- 1737 Jul, [facility] [id number] [place] [address] 64144- 2737 June, [facility] [address] [place] [address] 00720- 6711 Apr, Fibromyalgia M79.7 ; Left hip pain M25.552 and Decubitus ulcer of sacral region, stage 1 L89.151 [facility] [address] [place] [address] 50441- 0190 Apr, [facility] [id number] [place] [address] 52427- 9853 Apr, [facility] [address] [place] [address] 56920- 1481 Feb, [facility] [id number] [place] [address] 94009- 2962 Dec, Anxiety F41.9 ; Combined drug dependence excluding opioids, 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 and Unspecified episodic mood disorder F39 [facility] [id number] [place] [address] 30019- 8257 Dec, [facility] [id number] [place] [address] 52695- 4821 Nov, [facility] [id number] [place] [address] 50789- 5275 Nov, [facility] [id number] [place] [address] 02022- 8865 Nov, Other disorder of impulse control F63.89 and Anxiety F41.9 [facility] [id number] [place] [address] 94392- 6447 Oct, [facility] [id number] [place] [address] 39342 -6947 Oct, Open wound of left thigh, initial encounter S71.102A [facility] [id number] [place] [address] 70210- 1513 Oct, [facility] [id number] [place] [address] 05818- 8821 Sep, Unspecified episodic mood disorder F39 ; Other disorder of impulse control 312.39 ; Combined drug dependence excluding opioids, 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 and Anxiety F41.9 [facility] [id number] [place] [address] 67538- 1347 Sep, Other disorder of impulse control 312.39 ; Combined drug dependence excluding opioids, 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 ; Anxiety F41.9 and Unspecified episodic mood disorder F39 [facility] [id number] [address]- 4585 Sep, Other chronic pain G89.29 [facility] [address] [place] [address] 57820- 7882 Sep, [facility] [address], [place] [address]- 0127 Sep, [facility] [address] [place] [address] 54939- 7438 Aug, [facility] [id number] [place] [address] 72367- 3659 Aug, [facility] [id number] [place] [address] 28224- 0477 Aug, [facility] [address] [place] [address] 56387- 6563 Jul, [facility] [id number] [place] [address] 36827- 3770 Jul, [facility] [address] [place] [address] 51205- 1753 Jul, [facility] [id number] [place] [address] 57673- 7489 Jul, Arthritis M19.90 ; Chronic hepatitis C without hepatic coma B18.2 and Left hip pain M25.552 [facility] [address] [place] [address] 67658- 6017 Jul, Left knee pain M25.562 [facility] [address] [place] [address] 63195- 5097 Jul, Combined drug dependence excluding opioids, 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 ; Anxiety F41.9 ; Other disorder of impulse control 312.39 and Unspecified episodic mood disorder F39 [facility] [address], [place] [address]- 2662 Jul, Left knee pain M25.562 [facility] [id number] [address]- 9485 08 Jul, 2015 Left knee pain M25.562 and Left hip pain M25.552 [facility] [id number] [place] [address] 67853- 8103 Jul, [facility] [id number] [place] [address] 77955- 1517 June, [facility] [id number] [place] [address] 91543- 4375 June, Combinations of drug dependence excluding opioid type drug, unspecified abuse 304.80 ; Other disorder of impulse control 312.39 ; Unspecified episodic mood disorder F39 and Anxiety F41.9 [id number] [place] [address] 75321- 3345 June, Other fatigue R53.83 ; Headache R51 and Left knee pain M25.562 [address] [id number] [place] [address] 62192- 1741 June, Unspecified episodic mood disorder F39 ; Combinations of drug dependence excluding opioid type drug, unspecified abuse 304.80 ; Other disorder of impulse control 312.39 and Anxiety F41.9 [address] [place] [address] 04327- 9152 June, Anxiety F41.9 [place] [id number] [place] [address] 31931- 7680 June, Pain in left knee M25.562 [address] [place] [address] 75808- 9846 June, Anxiety F41.9 and Combinations of drug dependence excluding opioid type drug, unspecified abuse 304.80 [address] [place] [address] 44935- 4327 June, Unspecified episodic mood disorder 296.90 ; Combinations of drug dependence excluding opioid type drug, unspecified abuse 304.80 and Other disorder of impulse control 312.39 [id number] [place] [address] 87376- 4552 June, Anxiety F41.9 and Unspecified episodic mood disorder 296.90 [facility] [id number] [place] [address] 32679- 9641 May, Arthritis M19.90 [facility] [id number] [place] [address] 93326- 2794 May, Arthritis M19.90 [facility] [id number] [place] [address] 82096- 1839 May, Anxiety F41.9 ; Combinations of drug dependence excluding opioid type drug, unspecified abuse 304.80 and Other disorder of impulse control 312.39 [address] [id number] [place] [address] 94501- 8101 May, Left knee pain M25.562 [place] [id number] [place] [address] 86838- 7313 May, Arthritis M19.90 [facility] [id number] [place] [address] 79554- 9460 May, [facility] [id number] [place] [address] 63958- 5818 May, Anxiety F41.9 ; Unspecified episodic mood disorder 296.90 ; Combinations of drug dependence excluding opioid type drug, unspecified abuse 304.80 and Other disorder of impulse control 312.39 [facility] [id number] [place] [address] 23458- 7595 May, Left knee pain M25.562 [facility] [id number] [place] [address] 33496- 2131 May, Left knee pain M25.562 ; Combinations of drug dependence excluding opioid type drug, unspecified abuse 304.80 ; Other disorder of impulse control 312.39 ; Fibromyalgia M79.7 ; Hypertension I10 ; Unspecified episodic mood disorder 296.90 and Left hip pain M25.552 [facility] [id number] [place] [address] 44991- 1361 May, Unspecified episodic mood disorder 296.90 ; Other disorder of impulse control 312.39 ; Combinations of drug dependence excluding opioid type drug, unspecified abuse 304.80 and Anxiety F41.9 [address] [address]- 9237 May, Left knee pain M25.562 ; Combinations of drug dependence excluding opioid type drug, unspecified abuse 304.80 ; Other disorder of impulse control 312.39 ; Fibromyalgia M79.7 ; Hypertension I10 ; Unspecified episodic mood disorder 296.90 and Left hip pain M25.552 [id number] [place] [address] 22955- 4537 May, Anxiety F41.9 ; Unspecified episodic mood disorder 296.90 ; Other disorder of impulse control 312.39 and Combinations of drug dependence excluding opioid type drug, unspecified abuse 304.[id number] [place] [address] 53745- 8556 Apr, 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 and 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, implants and grafts, initial encounter T84.82XA [address] [id number] [place] [address] 94348- 3946 Apr, Anxiety F41.9 ; Unspecified episodic mood disorder 296.90 ; Combinations of drug dependence excluding opioid type drug, unspecified abuse 304.80 and Other disorder of impulse control 312.39 [address] [address] [place] [address] 91242- 7816 Apr, Arthritis M19.90 [address] [address] [place] [address] 48487- 7521 Apr, Anxiety F41.9 ; Unspecified episodic mood disorder 296.90 ; Combinations of drug dependence excluding opioid type drug, unspecified abuse 304.80 and Other disorder of impulse control 312.39 [address] [place] [address] 77646- 7932 Apr, Arthritis M19.[address] [id number] [address]- 6323 15 Apr, 2015 [facility] [id number] [place] [address] [id number]- 7045 15 Apr, 2015 [facility] [id number] [place] [address] 16480- 2575 14 Apr, 2015 Unspecified episodic mood disorder 296.90 ; Combinations of drug dependence excluding opioid type drug, unspecified abuse 304.80 ; Other disorder of impulse control 312.39 and Anxiety F41.9 [facility] [id number] [place] [address]303 11 Apr, 2015 Left knee pain M25.562 [facility] [id number] [place] [address] 53396- 7828 Apr, [facility] [id number] [place] [address] 85061- 1493 Mar, Unspecified episodic mood disorder 296.90 ; Anxiety F41.9 ; Other disorder of impulse control 312.39 and Combinations of drug dependence excluding opioid type drug, unspecified abuse 304.80 [facility] [id number] [place] [address] 96814- 1640 Mar, Hyperpigmentation L81.9 [facility] [id number] [place] [address] 58797- 5552 Mar, Arthritis M19.90 and Anxiety F41.9 [facility] [id number] [place] [address] 05117- 7078 Mar, Unspecified episodic mood disorder F39 ; Combined drug dependence excluding opioids, 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 ; Other disorder of impulse control F63.89 and Anxiety F41.9 [facility] [id number] [place] [address] 79488- 4126 Mar, Well woman exam Z01.419 ; Other fatigue R53.83 ; Hot flashes N95.1 ; Depression, unspecified depression type F32.9 and Body mass index (BMI) of 23.0-23.9 in adult Z68.23 [facility] [facility] [id number] [place] [address] 23291- 3323 11 Mar, 2015 Unspecified episodic mood disorder 296.90 ; Other disorder of impulse control 312.39 and Anxiety F41.9 [place] [address] 01681- 8963 11 Mar, 2015 Well woman exam Z01.419 [...] of breast Z12.39 and Limited mobility Z74.09 [place] [address] 75452- 2268 10 Mar, 2015 [address] [address] 07896- 4207 10 Mar, 2015 [address] [address] 84082- 2567 Mar, [place] [address] 26269- 2490 03 Mar, 2015 Other specified complication of internal orthopedic prosthetic devices, implants and grafts, initial encounter T84.89XA ; Fibromyalgia M79.7 ; Hypertension I10 ; Anemia D64.9 ; Insomnia G47.00 ; Anxiety F41.9 ; Arthritis M19.90 and Migraine G43.909 [place] [address] 66607- 5848 Mar, [facility] [address] [address] 0143 Feb, [facility] [id number] [place] [address] 69491- 4234 Feb, Arthritis M19.90 and Anxiety F41.9 [facility] [address] [address] 8113 Feb, [facility] [id number] [place] [address] 56993- 3883 Feb, [facility] [id number] [place] [address] 81342- 5728 Feb, [facility] [id number] [place] [address] 27115- 0170 Feb, [facility] [id number] [place] [address] 80187- 5699 Feb, Anxiety F41.9 [facility] [id number] [place] [address] 92693- 5722 Feb, [facility] [id number] [place] [address] 18693- 3069 Feb, [facility] [address] [address]- 6201 Feb, 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 and Fibromyalgia M79.7 [facility] [address] [address]- 0771 Feb, [facility] [id number] [address]- 9080 Jan, [facility] [id number] [place] [address] 23832- 1616 Jan, [facility] [id number], [place] [address]- 5219 Jan, [facility] [id number] [place] [address] 08481- 8392 Jan, [facility] [id number] [address]- 3315 Jan, [facility] [id number] [address]- 1119 Jan, [facility] [id number], [place] [address]- 9819 Jan, [facility] [id number] [place] [address] 855165- 1176 Jan, [facility] [id number] [place] [address] 27697- 8220 Dec, [facility] [id number] [place] [address] 01591- 1873 Dec, Left knee pain M25.562 [facility] [id number] [place] [address] 35045- 4041 Dec, Left knee pain M25.562 [facility] [id number] [place] [address] 62023- 6341 Dec, Fibromyalgia M79.7 ; Hypertension I10 and Arthritis M19.90 [facility] [address], [place] [address]- 7902 Dec, [facility] [id number], [place] [address]- 3239 Dec, [facility] [id number], [place] [address]- 1447 Dec, [facility] [address], [place] [address]- 7703 Dec, [facility] [id number], [place] [address]- 6405 Nov, [facility] [id number], [place] [address]- 7350 Nov, [facility] [id number] [address]- 4979 Nov, [facility] [address] [id number], [place] [address] 1984 Nov, Hypertension I10 [facility] [place] [facility] [address] [id number] [place] [address] 2546 23 Oct, 2014 [facility] [address] [id number] [place] [address] 2546 17 Oct, 2014 [facility] [place] [facility] [address] [id number] [place] [address] 2548 04 Oct, 2014 [facility] [address] [id number] [place] [address]- 9051 Oct, 2014 [facility] [address] [id number] [place] [address]- 2680 Oct, [facility] [address] [facility] [id number], [place] [address]- 4271 Sep, [facility] [address] [id number], [place] [address]- 9149 Sep, [facility] [address] [facility] [id number], [place] [address]- 4079 Sep, Hip pain associated with recalled total hip arthroplasty hardware 996.77 [facility] [place] [facility] [address] [facility] [id number], [place] [address]- 8151 Sep, [facility] [place] [facility] [address] [facility] [id number], [place] [address]- 2540 Sep, [facility] [place] [facility] [address] [id number], [place] [address]- 8733 Sep, [facility] [place] [facility] [address] [facility] [id number], [place] [address]- 3338 Aug, [facility] [place] [facility] [address] [facility] [id number], [place] [address]- 7059 Jul, [facility] [place] [facility] [address] [id number] [place] [address]- 9087 June, [facility] [place] [facility] [address] [id number] [place] [address]- 3028 June, [facility] [place] [facility] [address] [id number] [place] [address]- 3547 June, [facility] [place] [facility] [address] [id number] [place] [address]- 9986 June, [facility] [place] [facility] [address] [id number] [place] [address]- 2932 June, [facility] [place] [facility] [address] [id number] [place] [address]- 1361 June, [facility] [place] [facility] [address] [id number] [place] [address]- 2597 May, [facility] [place] [facility] [address] [id number] [place] [address]- 4089 May, [facility] [place] [facility] [address] [id number] [place] [address]- 1672 May, [facility] [place] [facility] [address] [id number] [place] [address]- 3653 Apr, [facility] [place] [facility] [address] [id number] [place] [address]- 4986 Apr, [facility] [place] [facility] [address] [id number] [place] [address]- 1164 Apr, [facility] [place] [facility] [address] [id number] [place] [address]- 5188 Apr, [facility] [place] [facility] [address] [id number] [place] [address]- 8135 Apr, [facility] [place] [facility] [address] [id number] [place] [address]- 0339 Apr, [facility] [place] [facility] [address] [id number] [place] [address]- 4033 Apr, [facility] [place] [facility] [address] [id number] [place] [address]- 2859 Apr, [facility] [place] [facility] [address] [id number] [place] [address]- 7409 Apr, [facility] [place] [facility] [address] [id number] [place] [address]- 3317 Apr, [facility] [place] [facility] [address] [id number] [place] [address]- 9829 Apr, [facility] [place] [facility] [address] [id number] [place] [address]- 5226 Mar, [facility] [place] [facility] [address] [id number] [place] [address]- 5191 Mar, [facility] [place] [facility] [address] [id number] [place] [address]- 8642 Mar, [facility] [place] [facility] [address] [id number] [place] [address]- 0905 Mar, [facility] [place] [facility] [address] [id number] [place] [address]- 5348 Mar, [facility] [place] [facility] [address] [id number] [place] [address]- 9811 Mar, [facility] [place] [facility] [address] [id number] [place] [address]- 4050 Feb, [facility] [place] [facility] [address] [id number] [place] [address]- 4626 Feb, [facility] [place] [facility] [address] [id number] [place] [address]- 0176 Feb, [facility] [place] [facility] [address] [id number] [place] [address]- 9510 Feb, [facility] [place] [facility] [address] [id number] [place] [address]- 2058 Jan, [facility] [place] [facility] [address] [id number] [place] [address]- 6181 Jan, [facility] [place] [facility] [address] [id number] [place] [address]- 2046 Jan, [facility] [place] [facility] [address] [id number] [place] [address]- 5258 Jan, [facility] [place] [facility] [address] [id number] [place] [address]- 3125 Dec, [facility] [place] [facility] [address] [id number] [place] [address]- 1375 Dec, [facility] [place] [facility] [address] [id number] [place] [address]- 0623 Dec, [facility] [place] [facility] [address] [id number] [place] [address]- 3256 Dec, [facility] [place] [facility] [address] [id number] [place] [address]- 4058 Dec, [facility] [place] [facility] [address] [id number] [place] [address]- 8392 Dec, [facility] [place] [facility] [address] [id number] [place] [address]- 6089 Dec, [facility] [place] [facility] [address] [id number] [place] [address]- 1211 Dec, [facility] [place] [facility] [address] [id number] [place] [address]- 0003 Dec, [facility] [place] [facility] [address] [id number], [place] [address]- 9535 Dec, [facility] [place] [facility] [address] [id number] [place] [address]- 5041 Dec, [facility] [place] [facility] [address] [id number] [place] [address]- 7259 Nov, [facility] [place] [facility] [address] [id number], [place] [address]- 4935 Nov, [facility] [place] [facility] [address] [id number] [place] [address]- 0208 28 Nov, 2013 [facility] [place] [facility] [address] [id number] [place] [address]- 4382 17 Nov, 2013 [facility] [place] [facility] [address] [id number] [place] [address]- 4467 17 Nov, 2013 [facility] [place] [facility] [address] [id number] [place] [address]- 9849 15 Nov, 2013 [facility] [place] [facility] [address] [id number] [place] [address]- 2935 15 Nov, 2013 [facility] [place] [facility] [address] [id number] [place] [address]- 9953 15 Nov, 2013 [facility] [place] [facility] [address] [id number] [place] [address]- 7888 15 Nov, 2013 [facility] [place] [facility] [address] [id number] [place] [address]- 9825 14 Nov, 2013 [facility] [place] [facility] [address] [id number] [place] [address]- 9113 14 Nov, 2013 [facility] [place] [facility] [address] [id number] [place] [address]- 7310 14 Nov, 2013 [facility] [place] [facility] [address] [id number] [place] [address]- 8143 14 Nov, 2013 [facility] [place] [facility] [address] [id number] [place] [address]- 1246 13 Nov, 2013 [facility] [place] [facility] [address] [id number] [place] [address]- 3098 13 Nov, 2013 [facility] [place] [facility] [address] [id number] [place] [address]- 4124 11 Nov, 2013 [facility] [place] [facility] [address] [id number] [place] [address]- 4487 11 Nov, 2013 [facility] [place] [facility] [address] [id number] [place] [address]- 6135 07 Nov, 2013 [facility] [place] [facility] [address] [id number] [place] [address]- 6716 07 Nov, 2013 [facility] [place] [facility] [address] [id number] [place] [address]- 1161 07 Nov, 2013 [facility] [place] [facility] [address] [id number] [place] [address]- 4827 07 Nov, 2013 [facility] [place] [facility] [address] [id number] [place] [address]- 9960 30 Oct, 2013 [facility] [place] [facility] [address] [id number] [place] [address]- 9781 30 Sep, 2013 [facility] [place] [facility] [address] [id number] [place] [address]- 0846 26 Oct, 2013 [facility] [place] [facility] [address] [id number] [place] [address]- 4973 26 Oct, 2013 [facility] [place] [facility] [address] [id number], [place] [address]- 7723 22 Oct, 2013 [facility] [place] [facility] [address] [id number] [place] [address]- 7112 22 Oct, 2013 [facility] [place] [facility] [address] [id number] [place] [address]- 5408 18 Sep, 2013 [facility] [place] [facility] [address] [id number], [place] [address]- 9875 18 Sep, 2013 [facility] [place] [facility] [address] [id number], [place] [address]- 254 18 Sep, 2013 [facility] [place] [facility] [address] [id number], [place] [address]- 2544 18 Sep, 2013 [facility] [place] [facility] [address] [id number], [place] [address]- 5474 12 Oct, 2013 [facility] [place] [facility] [address] [id number], [place] [address]- 2543 12 Oct, 2013 [facility] [place] [facility] [address] [id number] [place] [address]- 9216 Oct, [facility] [place] [facility] [address] [id number] [place] [address]- 3071 Oct, [facility] [place] [facility] [address] [id number] [place] [address]- 7071 Sep, [facility] [place] [facility] [address] [id number] [place] [address]- 8318 Sep, [facility] [place] [facility] [address] [id number] [place] [address]- 9029 Sep, [facility] [place] [facility] [address] [id number] [place] [address]- 8967 Sep, [facility] [place] [facility] [address] [id number] [place] [address]- 4033 Sep, [facility] [place] [facility] [address] [id number] [place] [address]- 5220 Sep, [facility] [place] [facility] [address] [id number] [place] [address]- 5936 Sep, [facility] [place] [facility] [address] [id number] [place] [address]- 2588 Sep, [facility] [place] [facility] [address] [id number] [place] [address]- 6948 Sep, [facility] [place] [facility] [address] [id number] [place] [address]- 6117 Sep, [facility] [place] [facility] [address] [id number] [place] [address]- 3843 Sep, [facility] [place] [facility] [address] [id number] [place] [address]- 5545 Sep, [facility] [place] [facility] [address] [id number] [place] [address]- 1662 Sep, [facility] [place] [facility] [address] [id number] [place] [address]- 7384 Sep, [facility] [place] [facility] [address] [id number] [place] [address]- 8696 Sep, [facility] [place] [facility] [address] [id number] [place] [address]- 1592 Sep, [facility] [place] [facility] [address] [id number] [place] [address]- 6928 Sep, [facility] [place] [facility] [address] [id number] [place] [address]- 1147 Sep, [facility] [place] [facility] [address] [id number] [place] [address]- 7620 Aug, [facility] [place] [facility] [address] [id number] [place] [address]- 1720 Aug, [facility] [place] [facility] [address] [id number] [place] [address]- 2761 Aug, [facility] [place] [facility] [address] [id number] [place] [address]- 0151 Aug, [facility] [place] [facility] [address] [id number] [place] [address]- 6212 Aug, [facility] [place] [facility] [address] [id number] [place] [address]- 9540 Aug, [facility] [place] [facility] [address] [id number] [place] [address]- 9052 Jul, [facility] [place] [facility] [address] [id number] [place] [address]- 1076 Jul, [facility] [place] [facility] [address] [id number] [place] [address]- 9373 Jul, [facility] [place] [facility] [address] [id number] [place] [address]- 7352 Jul, [facility] [place] [facility] [address] [id number] [place] [address]- 1927 June, [facility] [place] [facility] [address] [id number] [place] [address]- 8151 June, [facility] [place] [facility] [address] [id number] [place] [address]- 5696 June, [facility] [place] [facility] [address] [id number] [place] [address]- 7659 June, [facility] [place] [facility] [address] [id number] [place] [address]- 1209 June, [facility] [place] [facility] [address] [id number] [place] [address]- 1740 June, [facility] [place] [facility] [address] [id number] [place] [address]- 7776 June, [facility] [place] [facility] [address] [id number] [place] [address]- 3882 May, [facility] [place] [facility] [address] [id number] [place] [address]- 2383 May, [facility] [place] [facility] [address] [id number] [place] [address]- 4328 May, [facility] [place] [facility] [address] [id number] [place] [address]- 4238 May, [facility] [place] [facility] [address] [id number] [place] [address]- 6350 May, [facility] [place] [facility] [address] [id number] [place] [address]- 2930 May, [facility] [place] [facility] [address] [id number] [place] [address]- 5413 Apr, [facility] [place] [facility] [address] [id number] [place] [address]- 1644 Apr, [facility] [place] [facility] [address] [id number] [place] [address]- 6986 Apr, [facility] [place] [facility] [address] [id number] [place] [address]- 9997 Apr, [facility] [place] [facility] [address] [id number] [place] [address]- 7775 14 Apr, 2013 [facility] [place] [facility] [address] [id number] [place] [address] 14 Apr, 2013 [facility] [place] [facility] [address] [id number] [place] [address] 12 Apr, 2013 [facility] [place] [facility] [address] [id number] [place] [address] 12 Apr, 2013 [facility] [place] [facility] [address] [id number] [place] [address] 10 Apr, 2013 [facility] [place] [facility] [address] [id number] [place] [address] 10 Apr, 2013 [facility] [place] [facility] [address] [id number] [place] [address] 04 Apr, 2013 [facility] [place] [facility] [address] [id number] [place] [address]- 1484 04 Apr, 2013 [facility] [place] [facility] [address] [id number] [place] [address] 03 Apr, 2013 [facility] [place] [facility] [address] [id number] [place] [address] Apr, [facility] [place] [facility] [address] [id number] [place] [address] Mar, [facility] [place] [facility] [address] [id number] [place] [address] Mar, [facility] [place] [facility] [address] [id number] [place] [address] 05 Mar, 2013 [facility] [place] [facility] [address] [id number] [place] [address] Feb, [facility] [place] [facility] [address] [id number] [place] [address] Feb, [facility] [place] [facility] [address] [id number] [place] [address] Feb, [facility] [address] [id number] [place] [address] Feb, [facility] [place] [facility] [address] [id number] [place] [address] Feb, [facility] [place] [facility] [address] [id number] [place] [address] Feb, [facility] [place] [facility] [address] [id number] [place] [address] Feb, [facility] [address] [id number] [place] [address] 8169 Feb, [facility] [place] [facility] [address] [id number] [place] [address]- 48[address] Feb, [facility] [place] [facility] [address] [id number] [place] [address]- 9748 Feb, [facility] [place] [facility] [address] [id number] [place] [address]- 26[address] Jan, [facility] [place] [facility] [address] [id number] [place] [address] Jan, [facility] [place] [facility] [address] [id number] [place] [address] 37[address] Jan, [facility] [place] [facility] [address] [id number], [place] [address] Jan, [facility] [place] [facility] [address] [id number], [place] [address] Jan, [facility] [place] [facility] [address] [id number] [place] [address]- [address] Jan, [facility] [place] [facility] [address] [id number] [place] [address]- 5[address] Jan, [facility] [place] [facility] [address] [id number] [place] [address]- 9664 Jan, [facility] [place] [facility] [address] [id number] [place] [address]- [address] 19 Jan, 2012 [facility] [address] [id number] [place] [address]- [address]46 19 Jan, 2012 [facility] [place] [facility] [address] [id number] [place] [address] 7016 17 Jan, 2012 [facility] [address] [id number] [place] [address]- 6678 17 Jan, 2012 [facility] [place] [facility] [address] [id number] [place] [address]752 16 Jan, 2012 [facility] [address] [id number] [place] [address] 4[address] Jan, 2012 [facility] [address] [id number] [place] [address] 4026 Jan, [facility] [address] [facility] [id number] [place] [address]- 9126 Jan, [facility] [address] [id number] [place] [address]- 4026 Jan, [facility] [place] [facility] [address] [id number] [place] [address]- 3650 05 Jan, 2013 [facility] [address] [facility] [id number] [place] [address] 05 Jan, 2013 [facility] [place] [facility] [address] [id number] [place] [address]- 4986 05 Jan, 2013 [facility] [place] [facility] [address] [id number] [place] [address]- 9702 Jan, [facility] [place] [facility] [address] [id number] [place] [address] 2747 Dec, [facility] [place] [facility] [address] [facility] [id number] [place] [address]- 8211 Dec, [facility] [address] [facility] [id number] [place] [address]- 9825 Dec, [facility] [place] [facility] [address] [id number] [place] [address]- 4270 Dec, [facility] [place] [facility] [address] [id number] [place] [address]- 2561 Dec, [facility] [place] [facility] [address] [id number] [place] [address]- 6[address] Dec, [facility] [place] [facility] [address] [id number] [place] [address]- 4521 Dec, [facility] [place] [facility] [address] [id number] [place] [address]- 4331 Dec, [facility] [place] [facility] [address] [id number] [place] [address]- 1864 Dec, [facility] [place] [facility] [address] [id number] [place] [address]- 7822 Dec, [facility] [place] [facility] [address] [id number] [place] [address]- 1226 Nov, [facility] [place] [facility] [address] [id number] [place] [address] Nov, [facility] [place] [facility] [address] [id number] [place] [address]- 3015 Nov, [facility] [place] [facility] [address] [id number] [place] [address]- 2932 Nov, [facility] [place] [facility] [address] [id number], [place] [address] Nov, [facility] [place] [facility] [address] [id number] [place] [address]- 8282 Nov, [facility] [place] [facility] [address] [id number] [place] [address]- 6735 Nov, [facility] [place] [facility] [address] [id number], [place] [address] Nov, [facility] [place] [facility] [address] [id number], [place] [address]- 2546 Nov, [facility] [place] [facility] [address] [id number] [place] [address]- [address]227 Nov, [facility] [place] [facility] [address] [id number] [place] [address] Oct, [facility] [place] [facility] [address] [id number] [place] [address] 2546 Oct, [facility] [place] [facility] [address] [id number] [place] [address] 2544 Oct, [facility] [place] [facility] [address] [id number] [place] [address] 2991 Oct, [facility] [place] [facility] [address] [id number] [place] [address] 9237 Oct, [facility] [place] [facility] [address] [id number] [place] [address] 7683 Sep, [facility] [place] [facility] [address] [id number] [place] [address]- 0951 Sep, [facility] [place] [facility] [address] [id number] [place] [address] 8528 Aug, [facility] [place] [facility] [address] [id number] [place] [address]- 3166 Aug, [facility] [place] [facility] [address] [id number] [place] [address]- 4435 Aug, [facility] [place] [facility] [address] [id number] [place] [address]- 8865 Aug, [facility] [place] [facility] [address] [id number] [place] [address]- 9721 Aug, [facility] [place] [facility] [address] [id number] [place] [address]- 9572 Aug, [facility] [place] [facility] [address] [id number] [place] [address]- 8042 Aug, [facility] [place] [facility] [address] [id number] [place] [address] 8619 Jul, [facility] [address] [id number] [place] [address] 6204 Jul, [facility] [address] [id number] [place] [address] 2724 June, [facility] [address] [id number] [place] [address]- 6427 June, [facility] [address] [id number] [place] [address]- 4436 June, [facility] [address] [id number] [place] [address]- 9342 June, [facility] [address] [id number] [place] [address]- 9915 June, [facility] [address] [id number] [place] [address]- 4979 June, [facility] [address] [id number] [place] [address]- 3018 June, [facility] [address] [id number] [place] [address]- 8931 June, [facility] [address] [id number] [place] [address]- 2484 June, [facility] [address] [id number] [place] [address]- 6074 June, [facility] [address] [id number] [place] [address]- 3176 June, [facility] [address] [id number] [place] [address]- 7757 May, [facility] [address] [id number] [place] [address]- 8082 May, [facility] [address] [id number] [place] [address]- 1770 May, [facility] [address] [id number] [place] [address]- 1042 May, [facility] [address] [id number] [place] [address]- 3678 Apr, [facility] [address] [id number] [place] [address]- 9116 Apr, [facility] [address] [id number] [place] [address]- 9943 Apr, [facility] [address] [id number] [place] [address]- 6873 Mar, [facility] [address] [id number] [place] [address]- 3427 Mar, [facility] [address] [id number] [place] [address]- 3807 Feb, [facility] [address] [id number] [place] [address]- 8959 Feb, [facility] [address] [id number] [place] [address]- 7475 Feb, [facility] [address] [id number] [place] [address]- 3386 Feb, [facility] [address] [id number] [place] [address]- 3928 Feb, [facility] [address] [id number], [place] [address]- [address] 14 Feb, 2012 [facility] [place] [facility] [address] [id number] [place] [address]- 9725 Feb, [facility] [place] [facility] [address] [id number] [place] [address]- 3962 Jan, [facility] [place] [facility] [address] [id number] [place] [address] Jan, [facility] [place] [facility] [address] [id number] [place] [address]- 9635 28 Jan, 2012 [facility] [place] [facility] [address] [id number] [place] [address]- 0186 17 Jan, 2012 [facility] [place] [facility] [address] [id number] [place] [address]- 1496 17 Jan, 2012 [facility] [place] [facility] [address] [id number] [place] [address]- 9386 Jan, [facility] [place] [facility] [address] [id number] [place] [address]- 5253 Jan, [facility] [place] [facility] [address] [id number] [place] [address]- 0282 Jan, [facility] [place] [facility] [address] [id number] [place] [address]- 3350 Jan, [facility] [place] [facility] [address] [id number] [place] [address]- 8888 Jan, [facility] [place] [facility] [address] [id number] [place] [address]- 2717 Jan, [facility] [place] [facility] [address] [id number] [place] [address]- 0365 Dec, [facility] [place] [facility] [address] [facility] [id number] [place] [address]- 9282 Dec, [facility] [place] [facility] [address] [id number] [place] [address]- 7506 Dec, [facility] [place] [facility] [address] [id number] [place] [address]- 6606 Dec, [facility] [place] [facility] [address] [id number] [place] [address]- 6523 Nov, [facility] [place] [facility] [address] [id number] [place] [address]- 1522 Nov, [facility] [place] [facility] [address] [facility] [id number] [place] [address]- 3209 Nov, [facility] [place] [facility] [address] [id number] [place] [address] 2543 27 Oct, 2011 [facility] [place] [facility] [address] [id number] [place] [address] 2546 24 Oct, 2011 [facility] [place] [facility] [address] [id number] [place] [address] 2546 21 Oct, 2011 [facility] [place] [facility] [address] [id number] [place] [address] 2546 10 Oct, 2011 [facility] [place] [facility] [address] [id number] [place] [address] 2546 07 Oct, 2011 [facility] [place] [facility] [address] [id number] [place] [address]- 3426 04 Oct, 2011 [facility] [place] [facility] [address] [id number] [place] [address]- 2651 04 Oct, 2011 [facility] [place] [facility] [address] [id number] [place] [address]- 6174 29 Sep, 2011 [facility] [place] [facility] [address] [id number] [place] [address]- 0679 Sep, [facility] [place] [facility] [address] [id number] [place] [address]- 0431 Sep, [facility] [place] [facility] [address] [id number] [place] [address]- 2034 Sep, [facility] [place] [facility] [address] [id number] [place] [address]- 4318 Sep, [facility] [place] [facility] [address] [id number] [place] [address]- 7008 30 Aug, 2011 [facility] [place] [facility] [address] [id number] [place] [address] 2546 Aug, [facility] [place] [facility] [address] [id number] [place] [address] 2546 17 Aug, 2011 [facility] [place] [facility] [address] [id number] [place] [address]- 9340 16 Aug, 2011 [facility] [place] [facility] [address] [id number] [place] [address]- 2055 13 Aug, 2011 [facility] [place] [facility] [address] [id number] [place] [address]- 2627 Aug, [facility] [place] [facility] [address] [id number] [place] [address]- 7966 Aug, [facility] [place] [facility] [address] [id number] [place] [address]- 2110 Jul, [facility] [place] [facility] [address] [id number] [place] [address]- 8264 Jul, [facility] [place] [facility] [address] [id number] [place] [address]- 8436 Jul, [facility] [place] [facility] [address] [id number] [place] [address]- 6746 Jul, [facility] [place] [facility] [address] [id number] [place] [address]- 4493 Jul, [facility] [place] [facility] [address] [id number] [place] [address]- 5816 Jul, [facility] [place] [facility] [address] [id number] [place] [address]- 2609 Jul, [facility] [place] [facility] [address] [id number] [place] [address]- 8758 Jul, [facility] [place] [facility] [address] [id number] [place] [address]- 5270 Jul, [facility] [place] [facility] [address] [id number] [place] [address]- 4206 June, [facility] [place] [facility] [address] [id number] [place] [address]- 4852 June, [facility] [place] [facility] [address] [id number] [place] [address]- 3645 June, [facility] [place] [facility] [address] [id number] [place] [address]- 4847 June, [facility] [address] [id number] [place] [address]- 7110 June, [facility] [address] [id number] [place] [address]- 2126 June, [facility] [address] [id number] [place] [address]- 7326 June, [facility] [address] [id number] [place] [address]- 2431 June, [facility] [address] [id number] [place] [address]- 0399 25 May, 2011 [facility] [address] [id number] [place] [address]- 3093 23 May, 2011 [facility] [address] [id number] [place] [address]- 3478 May, [facility] [address] [id number] [place] [address]- 2590 19 May, 2011 [facility] [address] [id number] [place] [address]- 2258 16 May, 2011 [facility] [address] [id number] [place] [address]- 4624 16 May, 2011 [facility] [address] [id number] [place] [address]- 0552 May, [facility] [address] [id number] [place] [address]- 2591 27 Apr, 2011 [facility] [address] [id number] [place] [address]- 6398 22 Apr, 2011 [facility] [address] [id number] [place] [address]- 9174 Apr, [facility] [address] [id number] [place] [address]- 3526 Apr, [facility] [address] [id number] [place] [address]- 4656 Apr, [facility] [place] [facility] [address] [id number] [place] [address]- 5186 Apr, [facility] [place] [facility] [address] [id number] [place] [address]- 0806 Apr, [facility] [place] [facility] [address] [id number] [place] [address]- 9056 Mar, [facility] [place] [facility] [address] [id number] [place] [address]- 2741 Mar, [facility] [place] [facility] [address] [id number] [place] [address]- 1216 14 Mar, 2011 [facility] [place] [facility] [address] [id number] [place] [address]- 4946 Mar, [facility] [place] [facility] [address] [id number] [place] [address]- 9336 Mar, [facility] [place] [facility] [address] [id number] [place] [address]- 5035 Mar, [facility] [place] [facility] [address] [id number] [place] [address]- 9852 Mar, [facility] [place] [facility] [address] [id number] [place] [address]- 7012 Feb, [facility] [place] [facility] [address] [id number] [place] [address]- 9066 Feb, [facility] [place] [facility] [address] [id number] [place] [address]- 1656 Feb, [facility] [place] [facility] [address] [id number] [place] [address]- 0899 Feb, [facility] [place] [facility] [address] [id number] [place] [address]- 4879 Feb, [facility] [place] [facility] [address] [id number] [place] [address]- 1539 Feb, [facility] [address] [id number] [place] [address]- 6176 Feb, [facility] [address] [id number] [place] [address] 2546 Feb, [facility] [address] [id number] [place] [address]- 8006 Feb, [facility] [address] [id number] [place] [address] 254 Feb, [facility] [address] [id number] [place] [address]- 6795 Jan, [facility] [address] [id number] [place] [address]- 2400 Jan, [facility] [address] [id number] [place] [address]- 6653 Jan, [facility] [address] [id number] [place] [address]- 6981 Jan, [facility] [address] [id number] [place] [address]- 7949 Jan, [facility] [address] [id number] [place] [address]- 8079 Jan, [facility] [address] [id number] [place] [address] 2546 Jan[facility] [address] [id number] [place] [address]- 2541 Jan, [facility] [place] [facility] [address] [id number] [place] [address] 2549 Jan, [facility] [place] [facility] [address] [id number] [place] [address]- 2546 Jan, [facility] [address] [id number] [place] [address]- 7074 Jan, [facility] [place] [facility] [address] [id number] [place] [address]- 6191 Dec, [facility] [place] [facility] [address] [id number] [place] [address]- 1817 Dec, [facility] [place] [facility] [address] [id number] [place] [address]- 0329 Dec, [facility] [place] [facility] [address] [id number] [place] [address]- 5278 16 Dec, 2010 [facility] [place] [facility] [address] [id number] [place] [address]- 1142 14 Dec, 2010 [facility] [place] [facility] [address] [id number] [place] [address]- 2339 Dec, [facility] [place] [facility] [address] [id number] [place] [address]- 3765 Dec, [facility] [place] [facility] [address] [id number] [place] [address]- 9073 Dec, [facility] [place] [facility] [address] [id number] [place] [address]- 3032 Dec, [facility] [place] [facility] [address] [id number] [place] [address]- 6105 Nov, [facility] [place] [facility] [address] [id number] [place] [address]- 1558 Nov, [facility] [place] [facility] [address] [id number], [place] [address]- 3660 Nov, [facility] [place] [facility] [address] [id number] [place] [address]- 5811 Nov, [facility] [place] [facility] [address] [id number] [place] [address]- 1263 24 Nov, 2010 [facility] [place] [facility] [address] [id number] [place] [address]- 3030 13 Nov, 2010 [facility] [place] [facility] [address] [id number], [place] [address]- 9554 Aug, [facility] [id number] [address]- 9169 Feb, [facility] [id number], [place] [address]- 4873 Jan, [facility] [id number] [address]573 Jan, [facility] [id number] [address] 8528 Jan, [facility] [id number] [place] [address]3277- 4321 Jan, [facility] [id number] [place] [address] 783737- 3946 Jan, [facility] [id number] [place] [address]- 8880 Dec, [facility] [id number], [place] [address]- 5298 Dec, [facility] [id number], [place] [address]- 1229 Dec, [facility] [id number], [place] [address]- 4570 Dec, [facility] [id number], [place] [address]- 0115 Nov, [facility] [id number], [place] [address]- 2160 Nov, [facility] [id number], [place] [address]- 2238 Nov, IMMUNIZATIONS No Known Immunizations SOCIAL HISTORY Never Assessed REASON FOR VISIT Fentanyl 02/11/17 PLAN OF CARE VITAL SIGNS MEDICATIONS Medication Instructions Dosage Frequency Start Date End Date Duration Status Fentanyl 50 MCG/HR Transdermal 72hrs 1 patch to skin Feb, 30 days Active RESULTS No Results PROCEDURES [...]
--- OUTSIDE RECORDS SUMMARY | 2018-01-13 21:16 | XMS REPORT ---
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 Active 82054836 Problem Unspecified episodic mood disorder F39 Active 56866604 Problem Hypertension I10 Active 44935714 Problem Venous insufficiency (chronic) (peripheral) I87.2 Active 362646593 Problem Gastroesophageal reflux disease, esophagitis presence not specified K21.9 Active 237094810 Problem Other chronic pain G89.29 Active 05967835 Problem Chronic hepatitis C without hepatic coma B18.2 Active 869232890 Problem Other psychoactive substance dependence, uncomplicated F19.20 Active 7899815 Problem 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, 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 504867365 ALLERGIES No Information ENCOUNTERS Encounter Location Date Diagnosis [facility] [id number] [address] June, [facility] [id number] [place] [address] 28628- 6348 June, Arthritis M19.90 [facility] [address] [place] [address] 89054- 2054 June, [facility] [address] [place] [address] 20150- 7133 June, [facility] [address] [place] [address] 11537- 5118 June, Unspecified episodic mood disorder F39 [facility] [address] [address] May, Unspecified episodic mood disorder F39 [facility] [address] [place] [address] 29940- 9896 May, [facility] [id number] [place] [address] 93942- 9185 May, Arthritis M19.90 [facility] [id number] [place] [address] 01438 -8138 May, Dysuria R30.0 ; Abscess L02.91 and Acute cystitis without hematuria N30.00 [facility] [address] [place] [address] 15779- 7863 May, 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 ; Unspecified episodic mood disorder F39 ; Combined drug dependence excluding opioids, 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 ; Anxiety F41.9 and Other psychoactive substance dependence, uncomplicated F19.20 [facility] [id number] [place] [address] 20129- 0007 May, [facility] [id number] [place] [address] 61482- 3681 May, 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 ; Unspecified episodic mood disorder F39 ; Combined drug dependence excluding opioids, 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 ; Other psychoactive substance dependence, uncomplicated F19.20 and Anxiety F41.9 [facility] [address] [place] [address] 39968- 3212 May, Other chronic pain G89.29 ; Left hip pain M25.552 ; Hypertension I10 ; 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, 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 and Unspecified episodic mood disorder F39 [facility] [address] [place] [address] 40418- 5352 Apr, [facility] [address] [place] [address] 35892 -6707 Apr, Neck pain M54.2 ; Left hip pain M25.552 and Fall, initial encounter W19.XXXA [facility] [id number] [place] [address] 66238- 1918 Apr, Unspecified episodic mood disorder F39 ; Combined drug dependence excluding opioids, 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 ; Anxiety F41.9 ; Other psychoactive substance dependence, uncomplicated F19.20 and Other disorder of impulse control F63.89 [facility] [address] [place] [address] 02517- 1403 Apr, [facility] [id number] [place] [address] 34773- 8978 Apr, Arthritis M19.90 and Unspecified episodic mood disorder F39 [facility] [address] [place] [address] 00349- 7046 Apr, Unspecified episodic mood disorder F39 [facility] [address] [place] [address] 27670- 4316 Apr, [facility] [id number] [place] [address] 75495- 5173 Apr, [facility] [id number] [place] [address] 89275- 4185 Apr, Unspecified episodic mood disorder F39 ; Combined drug dependence excluding opioids, 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 ; Anxiety F41.9 ; Other psychoactive substance dependence, uncomplicated F19.20 and 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 [facility] [address] [place] [address] 90307- 8687 Mar, Unspecified episodic mood disorder F39 [facility] [id number] [place] [address] 28154- 4809 Mar, Gastroesophageal reflux disease, esophagitis presence not specified K21.9 [facility] [id number] [place] [address] 24686- 7784 Mar, Arthritis M19.90 and Unspecified episodic mood disorder F39 [facility] [address] [place] [address] 49166- 2720 Feb, [facility] [id number] [place] [address] 21874 2546 Feb, [facility] [address] [place] [address] 16967- 9046 Feb, [facility] [address] [place] [address] 32269- 3885 Feb, Arthritis M19.90 [facility] [address] [place] [address] 67782 2546 Feb, Non-pressure chronic ulcer of right calf, 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 ; Unspecified episodic mood disorder F39 and Left hip pain M25.552 [facility] [address] [place] [address] 39952- 2707 Feb, [facility] [id number] [place] [address] 07435- 6965 Feb, [facility] [address] [place] [address] 44516- 9415 Jan, Arthritis M19.90 [facility] [address] [place] [address] 11418- 3254 Jan, Left hip pain M25.552 and Non-pressure chronic ulcer of right calf, 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 [facility] [address] [place] [address] 32219- 9912 Jan, Chronic hepatitis C without hepatic coma B18.2 [facility] [address] [place] [address] 13986- 8144 Jan, Encounter for immunization Z23 ; Venous insufficiency ( chronic) (peripheral) I87.2 ; Non-pressure chronic ulcer of unspecified calf limited to breakdown of skin L97.201 and Gastroesophageal reflux disease, esophagitis presence not specified K21.9 [facility] [address] [place] [address] 26000- 7635 Jan, [facility] [address] [place] [address] 37751- 5380 Jan, Chronic hepatitis C without hepatic coma B18.2 and Encounter for immunization Z23 [facility] [address] [place] [address] 55570- 9988 Jan, Arthritis M19.90 [facility] [address] [place] [address] 94275- 7092 Jan, [facility] [address] [place] [address] 64337- 5672 Dec, [facility] [address] [place] [address] 96681- 2543 Dec, Unspecified episodic mood disorder F39 [facility] [address] [place] [address] 18218- 8728 Dec, Arthritis M19.90 [facility] [address] [place] [address] 30692- 6271 Dec, Arthritis M19.90 [facility] [address] [place] [address] 05758- 0165 Nov, [facility] [address] [place] [address] 61504- 9293 Nov, [facility] [address] [place] [address] 90335- 0745 Nov, Other psychoactive substance dependence, uncomplicated F19.20 ; 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, 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 and Chronic hepatitis C without hepatic coma B18.2 [facility] [address] [place] [address] 69388- 7213 Nov, Arthritis M19.90 [facility] [address] [address] Oct, Partial thickness burn of abdomen, initial encounter T21.22XA [facility] [address] [address] 6962 Oct, [facility] [address] [place] [address] 69452- 0206 Sep, Arthritis M19.90 [facility] [address] [place] [address] 43335- 5116 Sep, [facility] [address] [place] [address] 30794- 8489 Sep, [facility] [address] [place] [address] 74674- 1855 Sep, Unspecified episodic mood disorder F39 ; Chronic hepatitis C without hepatic coma B18.2 and Left hip pain M25.552 [facility] [address] [place] [address] 43173- 1526 Sep, Arthritis M19.90 and Left hip pain M25.552 [facility] [address] [place] [address] 49406- 1912 Aug, [facility] [address] [place] [address] 48912- 2240 Aug, [facility] [address] [place] [address] 13330- 8864 Aug, Chronic hepatitis C without hepatic coma B18.2 [facility] [address] [address]- 4150 Aug, [facility] [id number] [place] [address] 29510- 3494 Aug, Chronic hepatitis C without hepatic coma B18.2 [facility] [id number] [place] [address] 36501- 0111 Aug, 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, 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 [facility] [id number] [place] [address] 67666- 9212 Aug, [facility] [address] [place] [address] 42401- 9675 Aug, Chronic hepatitis C without hepatic coma B18.2 and Hypertension I10 [facility] [address] [place] [address] 47068- 2598 Jul, [facility] [address] [place] [address] 69919- 7141 June, [facility] [address] [place] [address] 65162- 6902 Apr, Fibromyalgia M79.7 ; Left hip pain M25.552 and Decubitus ulcer of sacral region, stage 1 L89.151 [facility] [address] [place] [address] 85858- 1326 Apr, [facility] [address] [place] [address] 13389- 5098 Apr, [facility] [address] [place] [address] 75622- 0240 Feb, [facility] [address] [place] [address] 00547- 6864 Dec, Anxiety F41.9 ; Combined drug dependence excluding opioids, 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 and Unspecified episodic mood disorder F39 [facility] [address] [place] [address] 17688- 9287 Dec, [facility] [address] [place] [address] 02755- 3727 Nov, [facility] [address] [place] [address] 91261- 4277 Nov, [facility] [id number] [place] [address] 79934- 1372 Nov, 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 and Anxiety F41.9 [facility] [address] [place] [address] 93059- 5373 Oct, [facility] [address] [address] 14 Oct, 2015 Open wound of left thigh, initial encounter S71.102A [facility] [address] [place] [address] 77182- 1712 Oct, [facility] [address] [place] [address] 48143- 1369 Sep, Unspecified episodic mood disorder F39 ; Other disorder of impulse control 312.39 ; Combined drug dependence excluding opioids, 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 and Anxiety F41.9 [facility] [address] [place] [address] 77838- 7080 Sep, Other disorder of impulse control 312.39 ; Combined drug dependence excluding opioids, 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 ; Anxiety F41.9 and Unspecified episodic mood disorder F39 [facility] [address] [place] [address] 61907- 7092 Sep, Other chronic pain G89.29 [facility] [address] [place] [address] 40584- 6912 Sep, [facility] [address] [place] [address] 43246- 2330 Sep, [facility] [address] [place] [address] 43017- 9069 Aug, [facility] [address] [place] [address] 03432- 5216 Aug, [facility] [address] [place] [address] 33108- 9820 Aug, [facility] [address] [place] [address] 95823- 1778 Jul, [facility] [address] [place] [address] 24182- 3012 Jul, [facility] [address] [place] [address] 81625- 9878 Jul, [facility] [address] [place] [address] 68836- 7903 17 Jul, 2015 Arthritis M19.90 ; Chronic hepatitis C without hepatic coma B18.2 and Left hip pain M25.552 [facility] [address] [place] [address] 24022- 0625 Jul, Left knee pain M25.562 [facility] [address] [place] [address] 70287- 3767 Jul, Combined drug dependence excluding opioids, 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 ; Anxiety F41.9 ; Other disorder of impulse control 312.39 and Unspecified episodic mood disorder F39 [facility] [address] [place] [address] 66722- 0665 Jul, Left knee pain M25.562 [facility] [address] 33898- 4440 Jul, Left knee pain M25.562 and Left hip pain M25.552 [facility] [address] [place] [address] 66269- 2017 Jul, [facility] [address] [place] [address] 79711- 0982 June, [facility] [address] [place] [address] 21745- 1500 June, Combinations of drug dependence excluding opioid type drug, unspecified abuse 304.80 ; Other disorder of impulse control 312.39 ; Unspecified episodic mood disorder F39 and Anxiety F41.9 [facility] [address] [place] [address] 36810- 3744 June, Other fatigue R53.83 ; Headache R51 and Left knee pain M25.562 [facility] [address] [place] [address] 05252- 6929 June, Unspecified episodic mood disorder F39 ; Combinations of drug dependence excluding opioid type drug, unspecified abuse 304.80 ; Other disorder of impulse control 312.39 and Anxiety F41.9 [facility] [address] [address]- 6178 June, Anxiety F41.9 [facility] [address] [place] [address] 99970- 5652 June, Pain in left knee M25.562 [facility] [address] [place] [address] 05825- 7830 June, Anxiety F41.9 and Combinations of drug dependence excluding opioid type drug, unspecified abuse 304.80 [facility] [address] [place] [address] 55813- 8666 June, Unspecified episodic mood disorder 296.90 ; Combinations of drug dependence excluding opioid type drug, unspecified abuse 304.80 and Other disorder of impulse control 312.39 [facility] [address] [place] [address] 51770- 0276 June, Anxiety F41.9 and Unspecified episodic mood disorder 296.90 [facility] [address] [place] [address] 52390- 2486 May, Arthritis M19.90 [facility] [address] [place] [address] 43443- 2016 May, Arthritis M19.90 [facility] [address] [place] [address] 31403- 4751 May, Anxiety F41.9 ; Combinations of drug dependence excluding opioid type drug, unspecified abuse 304.80 and Other disorder of impulse control 312.39 [facility] [address] [place] [address] 36205- 1866 May, Left knee pain M25.562 [facility] [address] [place] [address] 20545- 1802 May, Arthritis M19.90 [facility] [address] [place] [address] 80904- 5760 May, [facility] [address] [address]- 4994 May, Anxiety F41.9 ; Unspecified episodic mood disorder 296.90 ; Combinations of drug dependence excluding opioid type drug, unspecified abuse 304.80 and Other disorder of impulse control 312.39 [facility] [address] [place] [address] 44694- 8722 May, Left knee pain M25.562 [facility] [address] [place] [address] 20721- 8046 May, Left knee pain M25.562 ; Combinations of drug dependence excluding opioid type drug, unspecified abuse 304.80 ; Other disorder of impulse control 312.39 ; Fibromyalgia M79.7 ; Hypertension I10 ; Unspecified episodic mood disorder 296.90 and Left hip pain M25.552 [facility] [address] [place] [address] 40387- 8498 May, Unspecified episodic mood disorder 296.90 ; Other disorder of impulse control 312.39 ; Combinations of drug dependence excluding opioid type drug, unspecified abuse 304.80 and Anxiety F41.9 [facility] [address] [place] [address] 29868- 7539 May, Left knee pain M25.562 ; Combinations of drug dependence excluding opioid type drug, unspecified abuse 304.80 ; Other disorder of impulse control 312.39 ; Fibromyalgia M79.7 ; Hypertension I10 ; Unspecified episodic mood disorder 296.90 and Left hip pain M25.552 [facility] [address] [place] [address] 31597- 7541 May, Anxiety F41.9 ; Unspecified episodic mood disorder 296.90 ; Other disorder of impulse control 312.39 and Combinations of drug dependence excluding opioid type drug, unspecified abuse 304.80 [facility] [address] [address]- 3064 Apr, 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 and 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, implants and grafts, initial encounter T84.82XA [facility] [address] [address]- 2588 28 Apr, 2015 Anxiety F41.9 ; Unspecified episodic mood disorder 296.90 ; Combinations of drug dependence excluding opioid type drug, unspecified abuse 304.80 and Other disorder of impulse control 312.39 [facility] [address] [place] [address] 13106- 5424 25 Apr, 2015 Arthritis M19.90 [facility] [address] [place] [address] 37981- 1563 21 Apr, 2015 Anxiety F41.9 ; Unspecified episodic mood disorder 296.90 ; Combinations of drug dependence excluding opioid type drug, unspecified abuse 304.80 and Other disorder of impulse control 312.39 [facility] [address] [place] [address] 66310- 6583 17 Apr, 2015 Arthritis M19.90 [facility] [address] [place] [address] 80556- 1753 15 Apr, 2015 [facility] [address] [place] [address] 46624- 0337 15 Apr, 2015 [facility] [address] [place] [address] 75817- 2026 14 Apr, 2015 Unspecified episodic mood disorder 296.90 ; Combinations of drug dependence excluding opioid type drug, unspecified abuse 304.80 ; Other disorder of impulse control 312.39 and Anxiety F41.9 [facility] [address] [place] [address] 54907 -9648 11 Apr, 2015 Left knee pain M25.562 [facility] [address] [place] [address] 80034- 1419 11 Apr, 2015 [facility] [address] [place] [address] 08840- 9974 29 Mar, 2015 Unspecified episodic mood disorder 296.90 ; Anxiety F41.9 ; Other disorder of impulse control 312.39 and Combinations of drug dependence excluding opioid type drug, unspecified abuse 304.80 [facility] [address] [place] [address] 40442- 1019 Mar, Hyperpigmentation L81.9 [facility] [address] [place] [address]- 4857 Mar, Arthritis M19.90 and Anxiety F41.[address] 362377- 6794 Mar, Unspecified episodic mood disorder F39 ; Combined drug dependence excluding opioids, 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.] of breast Z12.39 and Limited mobility Z74.09 [facility] [address] 08784- 1694 Mar, [facility] [address] 92025- 4312 Mar, [facility] [address] 79650- 1799 Mar, [facility] [address] 89778- 8205 Mar, Other specified complication of internal orthopedic prosthetic devices, implants and grafts, initial encounter T84.89XA ; Fibromyalgia M79.7 ; Hypertension I10 ; Anemia D64.9 ; Insomnia G47.00 ; Anxiety F41.9 ; Arthritis M19.90 and Migraine G43.909 [facility] [address] 65736- 1794 Mar, [facility] [address] 86698- 2282 Feb, [facility] [address] 60749- 0175 Feb, Arthritis M19.90 and Anxiety F41.9 [facility] [address] 15445- 2032 Feb, [facility] [address] 39228- 3741 Feb, [facility] [address] 53737- 7839 Feb, [facility] [address] 72307- 3493 Feb, [facility] [address] 44987- 8881 Feb, Anxiety F41.9 [facility] [address] 83442- 1285 Feb, [facility] [address] [address]- 7269 Feb, [facility] [address] [place] [address] 24831- 3055 Feb, 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 and Fibromyalgia M79.7 [facility] [address] [place] [address] 34257- 6806 Feb, [facility] [id number] [place] [address] 66710- 1895 Jan, [facility] [address] [place] [address] 73769- 5768 Jan, [facility] [address] [place] [address] 55488- 7543 Jan, [facility] [address] [place], [place] [address]83- 7155 Jan, [facility] [id number] [address] Jan, [facility] [id number] [place] [address] 99688- 6097 Jan, [facility] [id number] [address] 5611 Jan, [facility] [id number] [address] 1424 Jan, [facility] [id number] [address]- 1066 Dec, [facility] [id number] [place] [address] 20562- 7256 Dec, Left knee pain M25.562 [facility] [address] [address]- 2176 Dec, Left knee pain M25.562 [facility] [id number] [place] [address] 99645- 1726 16 Dec, 2014 Fibromyalgia M79.7 ; Hypertension I10 and Arthritis M19.90 [facility] [place] [id number] [place] [address] 97579- 2250 Dec, [facility] [id number] [place] [address] 49767- 5873 Dec, [facility] [id number] [place] [address] 87838- 8338 Dec, [facility] [id number] [place] [address] 94688- 3882 Dec, [facility] [id number] [place] [address] 39100- 7343 Nov, [facility] [id number] [place] [address] 95406- 0298 Nov, [facility] [id number] [place] [address] 53591- 8794 Nov, [facility] [id number] [place] [address] 67132- 7025 Nov, Hypertension I10 [facility] [id number] [place] [address] 04419- 2710 23 Oct, 2014 [facility] [id number] [address]- 3579 17 Sep, 2014 [facility] [id number] [place] [address] 69952- 8251 04 Sep, 2014 [facility] [id number] [place] [address] 35841- 7840 04 Sep, 2014 [facility] [id number] [place] [address] 62949- 4419 03 Oct, 2014 [facility] [id number] [address]- 2735 Sep, [facility] [id number] [place] [address] 28174- 3886 Sep, [facility] [address] [id number] [place] [address]- 8023 Sep, Hip pain associated with recalled total hip arthroplasty hardware 996.77 [facility] [address] [id number] [place] [address] 2546 Sep, [facility] [address] [id number] [place] [address]- 2556 Sep, [facility] [address] [id number] [place] [address]- 9535 Sep, [facility] [address] [id number] [place] [address]- 9225 Aug, [facility] [address] [id number] [place] [address]- 6075 Jul, [facility] [address] [id number] [place] [address]- 5329 June, [facility] [place] [address] [id number] [place] [address]- 9544 June, [facility] [address] [id number] [place] [address]- 2969 June, [facility] [place] [address] [facility] [id number] [address]- 9468 June, [facility] [address] [id number] [place] [address]- 5136 June, [facility] [address] [id number] [address]- 4896 June, [facility] [address] [id number] [place] [address]- 7604 May, [facility] [address] [id number] [place] [address]- 1016 May, [facility] [address] [id number] [address]- 5520 May, [facility] [place] [facility] [address] [id number] [place] [address]- 9787 30 Apr, 2014 [facility] [place] [facility] [address] [id number] [place] [address]- 6039 30 Apr, 2014 [facility] [place] [facility] [address] [id number] [place] [address]- 5632 Apr, [facility] [place] [facility] [address] [id number] [place] [address]- 0755 Apr, [facility] [place] [facility] [address] [id number] [place] [address]- 5952 Apr, [facility] [place] [facility] [address] [id number] [place] [address]- 3038 Apr, [facility] [place] [facility] [address] [id number] [place] [address]- 0660 Apr, [facility] [place] [facility] [address] [id number] [place] [address]- 4772 Apr, [facility] [place] [facility] [address] [id number] [place] [address]- 7797 Apr, [facility] [place] [facility] [address] [id number] [place] [address]- 8120 Apr, [facility] [place] [facility] [address] [id number] [place] [address]- 1244 Apr, [facility] [place] [facility] [address] [id number] [place] [address]- 1310 Mar, [facility] [place] [facility] [address] [id number] [place] [address]- 8063 Mar, [facility] [place] [facility] [address] [id number] [place] [address]- 8832 Mar, [facility] [place] [facility] [address] [id number] [place] [address]- 6772 Mar, [facility] [place] [facility] [address] [id number] [place] [address]- 4835 10 Mar, 2014 [facility] [address] [id number] [place] [address]- 9982 10 Mar, 2014 [facility] [address] [id number] [place] [address]- 3182 15 Feb, 2014 [facility] [address] [id number] [place] [address]- 7269 Feb, [facility] [address] [id number] [place] [address]- 7302 Feb, [facility] [address] [id number] [place] [address]- 4170 Feb, [facility] [address] [id number] [place] [address]- 9900 Jan, [facility] [address] [id number] [place] [address]- 2459 Jan, [facility] [address] [id number] [place] [address]- 5410 Jan, [facility] [address] [id number] [place] [address]- 2306 Jan, [facility] [address] [id number] [place] [address]- 6353 Dec, [facility] [place] [facility] [address] [id number] [place] [address]- 7103 Dec, [facility] [place] [facility] [address] [id number] [place] [address]- 9653 Dec, [facility] [place] [facility] [address] [id number] [place] [address]- 6675 Dec, [facility] [place] [facility] [address] [id number] [place] [address]- 6216 Dec, [facility] [place] [facility] [address] [id number] [place] [address]- 1685 Dec, [facility] [place] [facility] [address] [id number] [place] [address]- 6515 Dec, [facility] [place] [facility] [address] [id number] [place] [address]- 6072 Dec, [facility] [place] [facility] [address] [id number] [place] [address]- 6647 Dec, [facility] [place] [facility] [address] [id number] [place] [address]- 7060 Dec, [facility] [place] [facility] [address] [id number] [place] [address]- 6168 Dec, [facility] [place] [facility] [address] [id number] [place] [address]- 7222 31 Nov, 2013 [facility] [place] [facility] [address] [id number] [place] [address]- 3293 28 Nov, 2013 [facility] [place] [facility] [address] [id number] [place] [address]- 8308 28 Nov, 2013 [facility] [place] [facility] [address] [id number] [place] [address]- 7907 17 Nov, 2013 [facility] [place] [facility] [address] [id number] [place] [address]- 7233 17 Nov, 2013 [facility] [place] [facility] [address] [id number] [place] [address]- 4495 15 Nov, 2013 [facility] [place] [facility] [address] [id number] [address]- 2453 15 Nov, 2013 [facility] [place] [facility] [address] [id number] [place] [address]- 2971 15 Nov, 2013 [facility] [place] [facility] [address] [id number] [place] [address]- 4529 15 Nov, 2013 [facility] [place] [facility] [address] [id number] [place] [address]- 8166 14 Nov, 2013 [facility] [place] [facility] [address] [id number] [place] [address]- 9596 14 Nov, 2013 [facility] [place] [facility] [address] [id number] [place] [address]- 7271 14 Nov, 2013 [facility] [place] [facility] [address] [id number] [place] [address]- 5557 14 Nov, 2013 [facility] [place] [facility] [address] [id number] [place] [address]- 5049 13 Nov, 2013 [facility] [place] [facility] [address] [id number] [place] [address]- 5737 13 Nov, 2013 [facility] [place] [facility] [address] [id number] [place] [address]- 7599 11 Nov, 2013 [facility] [place] [facility] [address] [id number] [place] [address]- 7893 11 Nov, 2013 [facility] [place] [facility] [address] [id number] [place] [address]- 0737 07 Nov, 2013 [facility] [place] [facility] [address] [id number] [place] [address]- 0554 07 Nov, 2013 [facility] [place] [facility] [address] [id number] [place] [address]- 3015 07 Nov, 2013 [facility] [place] [facility] [address] [id number] [place] [address]- 3729 07 Nov, 2013 [facility] [place] [facility] [address] [id number] [address]- 8094 30 Sep, 2013 [facility] [place] [facility] [address] [id number] [place] [address]- 5731 30 Sep, 2013 [facility] [place] [facility] [address] [id number] [place] [address]- 3988 26 Sep, 2013 [facility] [place] [facility] [address] [id number] [place] [address]- 2753 26 Sep, 2013 [facility] [place] [facility] [address] [id number] [place] [address]- 5250 22 Oct, 2013 [facility] [place] [facility] [address] [id number] [place] [address]- 3933 22 Oct, 2013 [facility] [place] [facility] [address] [id number] [place] [address]- 5007 18 Oct, 2013 [facility] [place] [facility] [address] [id number] [place] [address]- 2540 18 Oct, 2013 [facility] [place] [facility] [address] [id number] [place] [address]- 9303 Oct, 2013 [facility] [place] [facility] [address] [id number] [place] [address]- 8784 18 Oct, 2013 [facility] [place] [facility] [address] [id number] [place] [address]- 9652 Oct, 2013 [facility] [place] [facility] [address] [id number] [place] [address]- 2239 Oct, 2013 [facility] [place] [facility] [address] [id number] [place] [address]- 7835 Oct, 2013 [facility] [place] [facility] [address] [id number] [place] [address]- 5521 Oct, [facility] [place] [facility] [address] [id number] [place] [address]- 4971 Sep, [facility] [place] [facility] [address] [id number] [place] [address]- 9375 Sep, [facility] [place] [facility] [address] [id number] [place] [address]- 5540 Sep, [facility] [place] [facility] [address] [id number] [place] [address]- 4799 Sep, [facility] [place] [facility] [address] [id number] [place] [address]- 8465 Sep, [facility] [place] [facility] [address] [id number] [place] [address]- 4466 Sep, [facility] [place] [facility] [address] [id number] [place] [address]- 5116 Sep, [facility] [place] [facility] [address] [id number] [place] [address]- 0032 Sep, [facility] [place] [facility] [address] [id number] [place] [address]- 4038 Sep, [facility] [place] [facility] [address] [id number] [place] [address]- 5395 Sep, [facility] [place] [facility] [address] [id number] [place] [address]- 2481 Sep, [facility] [place] [facility] [address] [id number] [place] [address]- 7293 Sep, [facility] [place] [facility] [address] [id number] [place] [address]- 6189 Sep, [facility] [place] [facility] [address] [id number] [place] [address]- 5285 Sep, [facility] [place] [facility] [address] [id number] [place] [address]- 4201 Sep, [facility] [place] [facility] [address] [id number] [place] [address]- 1062 Sep, [facility] [place] [facility] [address] [id number] [place] [address]- 6484 Sep, [facility] [place] [facility] [address] [id number] [place] [address]- 1913 Sep, [facility] [place] [facility] [address] [id number] [place] [address]- 9708 Aug, [facility] [place] [facility] [address] [id number] [place] [address]- 3674 Aug, [facility] [place] [facility] [address] [id number] [place] [address]- 0660 Aug, [facility] [place] [facility] [address] [id number] [place] [address]- 3350 Aug, [facility] [place] [facility] [address] [id number] [place] [address]- 3253 Aug, [facility] [place] [facility] [address] [id number] [place] [address]- 2979 Aug, [facility] [place] [facility] [address] [id number] [place] [address]- 8264 Jul, [facility] [place] [facility] [address] [id number] [place] [address]- 9400 Jul, [facility] [place] [facility] [address] [id number] [place] [address]- 7413 Jul, [facility] [place] [facility] [address] [id number] [place] [address]- 1578 Jul, [facility] [place] [facility] [address] [id number] [place] [address]- 6237 June, [facility] [place] [facility] [address] [id number] [place] [address]- 3069 June, [facility] [place] [facility] [address] [id number] [place] [address]- 1842 June, [facility] [place] [facility] [address] [id number] [place] [address]- 8050 June, [facility] [place] [facility] [address] [id number] [place] [address]- 1063 June, [facility] [place] [facility] [address] [id number] [place] [address]- 7827 June, [facility] [place] [facility] [address] [id number] [place] [address]- 6348 June, [facility] [place] [facility] [address] [id number] [place] [address]- 0936 May, [facility] [place] [facility] [address] [id number] [place] [address]- 6710 May, [facility] [place] [facility] [address] [id number] [place] [address]- 9312 May, [facility] [place] [facility] [address] [id number] [place] [address]- 8120 28 May, 2013 [facility] [place] [facility] [address] [id number] [place] [address]- 3357 May, [facility] [place] [facility] [address] [id number] [place] [address]- 5826 May, [facility] [place] [facility] [address] [id number] [place] [address]- 6723 31 Apr, 2013 [facility] [place] [facility] [address] [id number] [place] [address]- 2628 31 Apr, 2013 [facility] [place] [facility] [address] [id number] [place] [address]- 8879 Apr, [facility] [place] [facility] [address] [id number] [place] [address]- 5016 Apr, [facility] [place] [facility] [address] [id number] [place] [address]- 3350 14 Apr, 2013 [facility] [place] [facility] [address] [id number] [place] [address]- 4541 14 Apr, 2013 [facility] [place] [facility] [address] [id number] [place] [address]- 1831 12 Apr, 2013 [facility] [place] [facility] [address] [id number] [place] [address]- 9566 12 Apr, 2013 [facility] [place] [facility] [address] [id number] [place] [address]- 7703 10 Apr, 2013 [facility] [place] [facility] [address] [id number] [place] [address]- 8207 10 Apr, 2013 [facility] [place] [facility] [address] [id number] [place] [address]- 4430 04 Apr, 2013 [facility] [place] [facility] [address] [id number] [place] [address]- 1411 04 Apr, 2013 [facility] [place] [facility] [address] [id number] [place] [address]- 8230 Apr, [facility] [place] [facility] [address] [id number] [place] [address]- 0086 Apr, [facility] [place] [facility] [address] [id number] [place] [address]- 2774 Mar, [facility] [place] [facility] [address] [id number] [place] [address]- 0037 Mar, [facility] [place] [facility] [address] [id number] [place] [address]- 1936 Mar, [facility] [place] [facility] [address] [id number] [place] [address]- 7990 Feb, [facility] [place] [facility] [address] [id number] [place] [address]- 5368 Feb, [facility] [place] [facility] [address] [id number] [place] [address]- 1954 Feb, [facility] [place] [facility] [address] [id number] [place] [address]- 7643 Feb, [facility] [place] [facility] [address] [id number] [place] [address]- 4817 Feb, [facility] [place] [facility] [address] [id number] [place] [address]- 1737 Feb, [facility] [place] [facility] [address] [id number] [place] [address]- 6469 Feb, [facility] [place] [facility] [address] [id number] [place] [address]- 0883 Feb, [facility] [place] [facility] [address] [id number] [place] [address]- 6592 Feb, [facility] [place] [facility] [address] [id number] [place] [address]- 6037 Feb, [facility] [place] [facility] [address] [id number] [place] [address]- 2327 Jan, [facility] [place] [facility] [address] [id number] [place] [address]- 5372 30 Jan, 2013 [facility] [address] [id number] [place] [address]- 2556 Jan, [facility] [address] [id number] [place]056 Jan, [facility] [address] [id number] [place] [address]- 6186 Jan, [facility] [address] [id number] [place] [address]- 0031 Jan, [facility] [address] [id number] [place] [address]- 2843 Jan, [facility] [address] [id number] [place] [address]- 7579 Jan, [facility] [address] [id number] [place] [address]- 7524 Jan, [facility] [address] [id number] [place] [address] Jan, [facility] [address] [id number] [place] [address] Jan, [facility] [address] [id number] [place] [address] 17 Jan, 2013 [facility] [address] [id number] [place] [address] 16 Jan, 2013 [facility] [address] [id number] [place] [address] 11 Jan, 2013 [facility] [address] [id number] [place] [address] Jan, [facility] [address] [id number] [place] [address] Jan, [facility] [address] [id number] [place] [address] Jan, [facility] [place] [facility] [address] [id number] [place] [address] Jan, [facility] [place] [facility] [address] [id number] [place] [address] Jan, [facility] [place] [facility] [address] [id number] [place] [address] Jan, [facility] [place] [facility] [address] [id number] [place] [address] Jan, [facility] [place] [facility] [address] [id number] [place] [address] Dec, [facility] [place] [facility] [address] [id number] [place] [address] Dec, [facility] [place] [facility] [address] [id number] [place] [address] Dec, [facility] [place] [facility] [address] [id number] [place] [address] Dec, [facility] [place] [facility] [address] [id number] [place] [address]- [address] Dec, [facility] [place] [facility] [address] [id number] [place] [address] Dec, [facility] [place] [facility] [address] [id number] [place] [address] Dec, [facility] [place] [facility] [address] [id number] [place] [address] Dec, [facility] [place] [facility] [address] [id number] [place] [address] Dec, [facility] [place] [facility] [address] [id number] [place] [address]- [address] Dec, [facility] [place] [facility] [address] [id number] [place] [address]- [address] Nov, [facility] [place] [facility] [address] [id number] [place] [address] 31 Nov, 2012 [facility] [place] [facility] [address] [id number] [place] [address] 18 Nov, 2012 [facility] [place] [facility] [address] [id number] [place] [address]- [address] 18 Nov, 2012 [facility] [place] [facility] [address] [id number] [place] [address]- [address] 11 Nov, 2012 [facility] [place] [facility] [address] [id number] [place] [address]- [address] 11 Nov, 2012 [facility] [place] [facility] [address] [id number] [place] [address]- [address] 11 Nov, 2012 [facility] [place] [facility] [address] [id number] [place] [address]- [address] 11 Nov, 2012 [facility] [place] [facility] [address] [id number] [place] [address]- 7624 10 Nov, 2012 [facility] [place] [facility] [address] [id number] [place] [address] 03 Nov, 2012 [facility] [place] [facility] [address] [id number] [place] [address] 26 Oct, 2012 [facility] [place] [facility] [address] [id number] [place] [address]- [address] 26 Oct, 2012 [facility] [place] [facility] [address] [id number] [place] [address]- 9095 26 Oct, 2012 [facility] [place] [facility] [address] [id number] [place] [address] 25 Oct, 2012 [facility] [place] [facility] [address] [id number] [place] [address]- [address] 06 Oct, 2012 [facility] [place] [facility] [address] [id number] [place] [address] 08 Sep, 2012 [facility] [place] [facility] [address] [id number] [place] [address] Sep, [facility] [place] [facility] [address] [id number] [place] [address] Aug, [facility] [address] [id number] [place] [address]- [address] Aug, [facility] [place] [facility] [address] [id number] [place] [address]- [address] Aug, [facility] [place] [facility] [address] [id number] [place] [address]- [address] Aug, [facility] [address] [id number] [place] [address]- [address]47 Aug, [facility] [place] [facility] [address] [id number] [place] [address] Aug, [facility] [address] [id number] [place] [address] Aug, [facility] [address] [id number] [place] [address] Jul, [facility] [address] [id number] [place] [address] 34[address] Jul, [facility] [address] [id number] [place] [address]- 9370 June, [facility] [address] [id number] [place] [address]- 44[address] June, [facility] [place] [facility] [address] [id number] [place] [address]- [address] June, [facility] [place] [facility] [address] [id number] [place] [address] June, [facility] [place] [facility] [address] [id number] [place] [address]- [address] June, [facility] [place] [facility] [address] [id number] [place] [address]- [address] June, [facility] [place] [facility] [address] [id number] [place] [address] 6[address] June, [facility] [address] [id number] [place] [address]- 9518 June, [facility] [address] [id number] [place] [address]- 9526 June, [facility] [address] [id number] [place] [address]- 95[address] June, [facility] [place] [facility] [address] [id number] [place] [address]- 65[address] June, [facility] [address] [id number] [place] [address]- 9409 May, [facility] [place] [facility] [address] [id number] [place] [address]- 8510 May, [facility] [address] [id number] [place] [address]- 7085 May, [facility] [place] [facility] [address] [id number] [place] [address]- 3546 May, [facility] [place] [facility] [address] [id number] [place] [place] [address] Apr, [facility] [place] [facility] [address] [id number] [place] [address] Apr, [facility] [place] [facility] [address] [id number] [place] [address] Apr, [facility] [place] [facility] [address] [id number] [address] Mar, [facility] [place] [facility] [address] [id number] [place] [address] Mar, [facility] [place] [facility] [address] [id number] [place] [address] Feb, [facility] [place] [facility] [address] [id number] [place] [address] 9728 Feb, [facility] [place] [facility] [address] [id number] [place] [address] 6638 21 Feb, 2012 [facility] [address] [id number] [place] [address] 1999 21 Feb, 2012 [facility] [address] [id number] [place] [address] 8046 16 Feb, 2012 [facility] [address] [id number] [place] [address] 3064 14 Feb, 2012 [facility] [address] [id number] [place] [address] 5051 08 Feb, 2012 [facility] [address] [id number] [place] [address] 31 Jan, 2012 [facility] [address] [id number] [place] [address]- 1582 31 Jan, 2012 [facility] [address] [id number] [place] [address] 5522 28 Jan, 2012 [facility] [address] [id number] [place] [address]- 8436 17 Jan, 2012 [facility] [address] [id number] [place] [address] 6110 17 Jan, 2012 [facility] [address] [id number] [place] [address]- 2220 Jan, [facility] [address] [id number] [place] [address] 2544 11 Jan, 2012 [facility] [address] [id number] [place] [address]- 2546 10 Jan, 2012 [facility] [address] [id number] [place] [address]- 7686 10 Jan, 2012 [facility] [address] [id number] [place] [address] 3716 03 Jan, 2012 [facility] [address] [id number] [place] [address]- 8183 Jan, [facility] [place] [facility] [address] [id number] [place] [address]- 0683 Dec, [facility] [place] [facility] [address] [id number] [place] [address]- 3336 Dec, [facility] [place] [facility] [address] [id number] [place] [address] 5477 Dec, [facility] [place] [facility] [address] [id number] [place] [address] 6212 Dec, [facility] [place] [facility] [address] [id number] [place] [address] 3659 Nov, [facility] [place] [facility] [address] [id number] [place] [address] 1555 Nov, [facility] [place] [facility] [address] [facility] [id number] [place] [address]- 4382 Nov, [facility] [place] [facility] [address] [id number] [place] [address] 0439 27 Oct, 2011 [facility] [place] [facility] [address] [id number] [place] [address]- 8830 24 Oct, 2011 [facility] [place] [facility] [address] [facility] [id number] [place] [address] 2232 21 Oct, 2011 [facility] [place] [facility] [address] [facility] [id number] [place] [address]- 3063 10 Oct, 2011 [facility] [place] [facility] [address] [id number] [place] [address]- 1018 07 Oct, 2011 [facility] [place] [facility] [address] [id number] [place] [address]- 2306 04 Oct, 2011 [facility] [place] [facility] [address] [id number] [place] [address]- 8426 04 Oct, 2011 [facility] [place] [facility] [address] [facility] [id number] [place] [address]- 1691 29 Sep, 2011 [facility] [place] [facility] [address] [id number] [place] [address] 68[address] Sep, [facility] [place] [facility] [address] [id number] [place] [address]- 7096 Sep, [facility] [place] [facility] [address] [id number] [place] [address]- 0896 Sep, [facility] [place] [facility] [address] [id number] [place] [address]- 8296 Sep, [facility] [place] [facility] [address] [id number] [place] [address]- 8110 30 Aug, 2011 [facility] [place] [facility] [address] [id number] [place] [address]- 7498 Aug, [facility] [place] [facility] [address] [id number] [place] [address]- 7690 Aug, [facility] [place] [facility] [address] [id number] [place] [address]- 4179 16 Aug, 2011 [facility] [place] [facility] [address] [id number] [place] [address]- 8678 Aug, [facility] [place] [facility] [address] [id number] [place] [address]- 8314 Aug, [facility] [place] [facility] [address] [id number] [place] [address]- 9814 Aug, [facility] [place] [facility] [address] [id number] [place] [address] 8744 Jul, [facility] [place] [facility] [address] [id number] [place] [address]- 9632 Jul, [facility] [place] [facility] [address] [id number] [place] [address]- 3305 Jul, [facility] [place] [facility] [address] [id number] [place] [address]- 6109 Jul, [facility] [place] [facility] [address] [id number] [place] [address]- 4298 Jul, [facility] [place] [facility] [address] [id number] [place] [address]- 5394 11 Jul, 2011 [facility] [address] [id number] [place] [address]- 6127 07 Jul, 2011 [facility] [place] [facility] [address] [id number] [place] [address]- 4296 Jul, [facility] [place] [facility] [address] [id number] [place] [address]- 9500 Jul, [facility] [place] [facility] [address] [id number] [place] [address]- 5434 June, [facility] [place] [facility] [address] [id number] [place] [address]- 4367 June, [facility] [place] [facility] [address] [id number] [place] [address] 3980 June, [facility] [place] [facility] [address] [id number] [place] [address]- 1385 June, [facility] [address] [id number] [place] [address]- 1841 June, [facility] [place] [facility] [address] [id number] [place] [address]- 9992 June, [facility] [place] [facility] [address] [id number] [place] [address]- 4484 June, [facility] [place] [facility] [address] [id number] [place] [address]- 4206 June, [facility] [place] [facility] [address] [id number] [place] [address]- 7099 May, [facility] [place] [facility] [address] [id number] [place] [address]- 0018 May, [facility] [place] [facility] [address] [id number] [place] [address]- 4768 May, [facility] [place] [facility] [address] [id number] [place] [address]- 1093 May, [facility] [place] [facility] [address] [id number] [place] [address]- 8931 16 May, 2011 [facility] [place] [facility] [address] [id number] [place] [address]- 5093 16 May, 2011 [facility] [place] [facility] [address] [id number] [place] [address]- 8449 May, [facility] [place] [facility] [address] [id number] [place] [address]- 7980 27 Apr, 2011 [facility] [place] [facility] [address] [id number] [place] [address]- 7595 Apr, [facility] [place] [facility] [address] [id number] [place] [address]- 0024 Apr, [facility] [place] [facility] [address] [id number] [place] [address]- 5551 Apr, [facility] [place] [facility] [address] [id number] [place] [address]- 2151 Apr, [facility] [place] [facility] [address] [id number] [place] [address]- 5874 Apr, [facility] [place] [facility] [address] [id number] [place] [address]- 3570 Apr, [facility] [place] [facility] [address] [id number] [place] [address]- 8184 Mar, [facility] [place] [facility] [address] [id number] [place] [address]- 0336 Mar, [facility] [place] [facility] [address] [id number] [place] [address]- 3114 14 Mar, 2011 [facility] [place] [facility] [address] [id number] [place] [address]- 8798 13 Mar, 2011 [facility] [place] [facility] [address] [id number] [place] [address]- 9123 09 Mar, 2011 [facility] [place] [facility] [address] [id number] [place] [address]- 2546 08 Mar, 2011 [facility] [address] [id number] [place] [address]- 3876 Mar, [facility] [address] [id number] [place] [address]- 2546 Feb, [facility] [address] [id number] [place] [address]- 0046 Feb, [facility] [address] [id number] [place] [address]- 0346 Feb, [facility] [address] [id number] [place] [address]- 7986 Feb, [facility] [address] [id number] [place] [address]- 3826 Feb, [facility] [address] [id number] [place] [address]- 6491 Feb, [facility] [address] [id number] [place] [address]- 3874 Feb, [facility] [address] [id number] [place] [address]- 9516 Feb, [facility] [address] [id number] [place] [address]- 2696 Feb, [facility] [address] [id number] [place] [address]- 8316 Feb, [facility] [address] [id number] [place] [address]- 3100 Jan, [facility] [address] [id number] [place] [address]- 0536 Jan, [facility] [address] [id number] [place] [address]- 2546 Jan, [facility] [address] [id number] [place] [address]- 0079 Jan, [facility] [place] [facility] [address] [id number] [place] [address]- 9890 Jan, [facility] [place] [facility] [address] [id number] [place] [address]- 3782 Jan, [facility] [place] [facility] [address] [id number] [place] [address]- 2814 15 Jan, 2011 [facility] [place] [facility] [address] [id number] [place] [address]- 9354 Jan, [facility] [place] [facility] [address] [id number] [place] [address]- 6722 Jan, [facility] [place] [facility] [address] [id number] [place] [address]- 3306 Jan, [facility] [place] [facility] [address] [id number] [place] [address]- 5182 Jan, [facility] [place] [facility] [address] [id number] [place] [address]- 9630 Dec, [facility] [place] [facility] [address] [id number] [place] [address]- 8552 17 Dec, 2010 [facility] [place] [facility] [address] [id number] [place] [address]- 4414 17 Dec, 2010 [facility] [place] [facility] [address] [id number] [place] [address]- 0121 16 Dec, 2010 [facility] [place] [facility] [address] [id number] [place] [address]- 5382 14 Dec, 2010 [facility] [place] [facility] [address] [id number] [place] [address]- 3193 09 Dec, 2010 [facility] [place] [facility] [address] [id number] [place] [address]- 7161 08 Dec, 2010 [facility] [place] [facility] [address] [id number] [place] [address]- 0130 07 Dec, 2010 [facility] [place] [facility] [address] [id number] [place] [address]- 1957 02 Dec, 2010 [facility] [place] [facility] [address] [id number] [place] [address]- 7512 Nov, [facility] [place] [facility] [address] [id number] [place] [address]- 9570 31 Nov, 2010 [facility] [place] [facility] [address] [id number] [place] [address]- 4609 Nov, [facility] [place] [facility] [address] [id number] [place] [address]- 4778 24 Nov, 2010 [facility] [place] [facility] [address] [id number] [place] [address]56 24 Nov, 2010 [facility] [place] [facility] [address] [id number] [place] [address]- 8995 Nov, [facility] [place] [facility] [address] [id number] [place] [address]- 1691 Aug, [facility] [place] [facility] [address] [id number] [place] [address]- 5576 14 Feb, 2010 [facility] [place] [facility] [address] [id number] [place] [address]- 4718 14 Jan, 2010 [facility] [place] [facility] [address] [facility] [id number] [place] [address]- 5839 06 Jan, 2010 [facility] [place] [facility] [address] [id number] [place] [address]- 7516 Jan, [facility] [place] [facility] [address] [id number] [place] [address]- 6746 Jan, [facility] [place] [facility] [address] [id number] [place] [address]- 5231 Jan, [facility] [place] [facility] [address] [id number] [place] [address]- 2125 24 Dec, 2009 [facility] [place] [facility] [address] [id number] [place] [address]- 0747 18 Dec, 2009 [facility] [place] [facility] [address] [facility] [id number] [place] [address]- 7096 Dec, [facility] [address] [id number] [place] [address]- 8206 Dec, [facility] [address] [id number] [place] [address]- 3862 Nov, [facility] [address] [facility] [id number] [place] [address]- 9580 Nov, [facility] [address] [facility] [id number] [place] [address] Nov, IMMUNIZATIONS No Known Immunizations SOCIAL HISTORY Never Assessed REASON FOR VISIT Fentanyl patchs PLAN OF CARE VITAL SIGNS MEDICATIONS Medication Instructions Dosage Frequency Start Date End Date Duration Status Fentanyl 50 MCG/HR Transdermal 72hrs 1 patch to skin Dec, 30 days [...]
--- OUTSIDE RECORDS SUMMARY | 2018-01-13 21:17 | XMS REPORT ---
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
--- OUTSIDE RECORDS SUMMARY | 2018-01-13 21:17 | XMS REPORT ---
Author Author WYATT SOTO [facility] [employer] Address Unknown Phone Unavailable Care Team Providers Care Law Enforcement Instructor Name Role Phone WYATT SOTO CP Unavailable Allergies, Adverse Reactions, Alerts Substance Reaction Event Type Propranolol HCl chest pain, headache Drug Allergy Bactrim unknown Drug Allergy Penicillins unknown Non Drug Allergy Problems Problem Type Condition Code Onset Dates Condition Status Assessment Hypertension I10 Active Assessment Arthritis M19.90 Active Problem Arthritis M19.90 Active Problem Hypertension I10 Active Problem Fibromyalgia M79.7 Active Problem 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 Assessment Fibromyalgia M79.7 Active Problem Unspecified episodic mood disorder 296.90 Active Problem Combinations of drug dependence excluding opioid type drug, 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 Medications Medication Code System Code Instructions Start Date End Date Status Dosage Fluoxetine HCl [facility] [address]-58 40 MG Orally Once a day Nov 28, 2014 2 capsule in the morning Lyrica [facility] [address]-25 100 MG Orally Three times a day 1 capsule Furosemide [facility] 93196280109 20 MG TAKE ONE TABLET BY MOUTH DAILY NEEDED Amlodipine Besylate [facility] 75487765199 5 MG TAKE ONE TABLET BY MOUTH DAILY Hydrocodone-Acetaminophen [facility] [address]-23 10-325 MG Orally every 6 hrs 1 tablet as needed Klonopin [facility] [address]-52 1 MG Orally Twice a day 1 tablet Sumatriptan Succinate [facility] 91503424052 100 MG Orally Once a day 1 tablet as needed one time Flexeril NDC 0 10 mg 3 times a day Mar 22, 2014 take 1 tablet Procedures Procedure Coding System Code Date Office Visit, Est Pt., Level 3 CPT-4 45802 Dec 26, 2014 Vital Signs Date/Time: Dec 26, 2014 Temperature 97.7 F Weight 159.4 lbs Height 68 in BMI 24.23 Index Blood Pressure Diastolic 72 mmHg Blood Pressure Systolic 108 mmHg Cardiac Monitoring Heart Rate 70 bpm Results No Known Results Summary Purpose [employer] Submission
--- OUTSIDE RECORDS SUMMARY | 2018-01-13 21:17 | XMS REPORT ---
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
--- OUTSIDE RECORDS SUMMARY | 2018-01-13 21:18 | XMS REPORT ---
Author Author WYATT SOTO 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 Active 07772282 Problem Unspecified episodic mood disorder F39 Active 57295580 Problem Hypertension I10 Active 47650825 Problem Venous insufficiency (chronic) (peripheral) I87.2 Active 510448542 Problem Gastroesophageal reflux disease, esophagitis presence not specified K21.9 Active 226928258 Problem Other chronic pain G89.29 Active 33932391 Problem Chronic hepatitis C without hepatic coma B18.2 Active 325961998 Problem Other psychoactive substance dependence, uncomplicated F19.20 Active 9199510 Problem 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, 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 328547433 ALLERGIES No Information ENCOUNTERS Encounter Location Date Diagnosis [facility] [id number], [place] [address] June, [facility] [id number] [place] [address] 71741- 0052 June, Arthritis M19.90 [facility] [id number] [place] [address] 96958- 9669 June, [facility] [id number] [place] [address] 21783- 0622 June, [facility] [id number] [place] [address] 78258- 9479 June, Unspecified episodic mood disorder F39 [facility] [address], [place] [address] May, Unspecified episodic mood disorder F39 [facility] [id number] [place] [address] 36326- 9668 May, [facility] [id number] [place] [address] 07606- 2531 May, Arthritis M19.90 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 ; Anxiety F41.9 and Other psychoactive substance dependence, uncomplicated F19.20 [facility] [id number] [place] [address] 54425- 6619 May, [facility] [id number] [place] [address] 58749- 4169 May, 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 ; Unspecified episodic mood disorder F39 ; Combined drug dependence excluding opioids, 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 [facility] [id number] [place] [address] 46537- 6388 Apr, [facility] [id number] [place] [address] 14980- 9796 Apr, Arthritis M19.90 and Unspecified episodic mood disorder F39 [facility] [id number] [place] [address] 92672- 7526 Apr, Unspecified episodic mood disorder F39 [facility] [id number] [place] [address] 17728- 7255 Apr, [facility] [id number] [place] [address] 60834- 5849 Apr, [facility] [id number] [place] [address] 79806- 4601 Apr, Unspecified episodic mood disorder F39 ; Combined drug dependence excluding opioids, 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 ; Anxiety F41.9 ; Other psychoactive substance dependence, uncomplicated F19.20 and Other disorder of impulse control F63.89 [facility] [id number] [place] [address] 95863- 4300 Mar, Unspecified episodic mood disorder F39 [facility] [id number] [place] [address] 26194- 3974 Mar, Gastroesophageal reflux disease, esophagitis presence not specified K21.9 [facility] [id number] [place] [address] 99974- 7930 Mar, Arthritis M19.90 and Unspecified episodic mood disorder F39 [facility] [id number] [place] [address] 06035- 4589 Feb, [facility] [id number] [place] [address] 00195 2546 Feb, [facility] [id number] [place] [address] 17801- 1326 Feb, [facility] [id number] [place] [address] 57348- 8056 Feb, Arthritis M19.90 [facility] [id number] [place] [address] 35011 2546 Feb, Non-pressure chronic ulcer of right calf, 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 ; Unspecified episodic mood disorder F39 and Left hip pain M25.552 [facility] [id number] [place] [address] 31585- 4117 Feb, [facility] [id number] [place] [address] 17489- 8753 Feb, [address] [id number] [place] [address] 20745- 9280 Jan, Arthritis M19.90 [facility] [id number] [place] [address] 26899- 1256 Jan, Left hip pain M25.552 and Non-pressure chronic ulcer of right calf, 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 [address] [address] [place] [address] 85413- 3200 Jan, Chronic hepatitis C without hepatic coma B18.2 [facility] [id number] [place] [address] 87201- 9710 Jan, Encounter for immunization Z23 ; Venous insufficiency ( chronic) (peripheral) I87.2 ; Non-pressure chronic ulcer of unspecified calf limited to breakdown of skin L97.201 and Gastroesophageal reflux disease, esophagitis presence not specified K21.9 [address] [id number] [place] [address] 42626- 3602 Jan, [facility] [id number] [place] [address] 33999- 5043 Jan, Chronic hepatitis C without hepatic coma B18.2 and Encounter for immunization Z23 [facility] [id number] [place] [address] 85646- 4639 Jan, Arthritis M19.90 [facility] [id number] [place] [address] 46336- 9063 Jan, [facility] [id number] [place] [address] 25692- 6935 Dec, [facility] [id number] [place] [address] 81435- 0778 Dec, Unspecified episodic mood disorder F39 [facility] [id number] [place] [address] 47546- 5139 Dec, Arthritis M19.90 [facility] [id number] [place] [address] 69638- 2356 Dec, Arthritis M19.90 [facility] [id number] [place] [address] 22726- 9774 Nov, [facility] [id number] [place] [address] 49291- 1310 Nov, [facility] [id number] [place] [address] 25283- 4151 Nov, Other psychoactive substance dependence, uncomplicated F19.20 ; 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 [address], [place] [address] Oct, Partial thickness burn of abdomen, initial encounter T21.22XA [facility] [address], [place] [address] 4682 Oct, [facility] [id number] [place] [address] 54830- 7756 Sep, Arthritis M19.90 [facility] [id number] [place] [address] 71967- 8566 Sep, [facility] [id number] [place] [address] 02894- 3204 Sep, [facility] [id number] [place] [address] 22533- 1307 Sep, Unspecified episodic mood disorder F39 ; Chronic hepatitis C without hepatic coma B18.2 and Left hip pain M25.552 [facility] [id number] [place] [address] 59893- 3196 Sep, Arthritis M19.90 and Left hip pain M25.552 [facility] [id number] [place] [address] 46518- 3739 Aug, [facility] [id number] [place] [address] 46800- 5944 Aug, [facility] [id number] [place] [address] 19653- 0365 Aug, Chronic hepatitis C without hepatic coma B18.2 [facility] [address] [address]- 8506 Aug, [facility] [id number] [place] [address] 68285- 2860 Aug, Chronic hepatitis C without hepatic coma B18.2 [facility] [id number] [place] [address] 05111- 4930 Aug, 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, 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 [facility] [id number] [place] [address] 56239- 9138 Aug, [facility] [id number] [place] [address] 27491- 3026 Aug, Chronic hepatitis C without hepatic coma B18.2 and Hypertension I10 [facility] [id number] [place] [address] 46515- 5027 Jul, [facility] [id number] [place] [address] 06637- 1114 June, [facility] [id number] [place] [address] 80717- 6989 Apr, Fibromyalgia M79.7 ; Left hip pain M25.552 and Decubitus ulcer of sacral region, stage 1 L89.151 [facility] [id number] [place] [address] 14469- 0759 Apr, [facility] [id number] [place] [address] 46407- 3253 Apr, [facility] [id number] [place] [address] 01652- 3929 Feb, [facility] [id number] [place] [address] 28909- 3199 Dec, Anxiety F41.9 ; Combined drug dependence excluding opioids, 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 and Unspecified episodic mood disorder F39 [facility] [id number] [place] [address] 55989- 8206 Dec, [facility] [id number] [place] [address] 35481- 4925 Nov, [facility] [id number] [place] [address] 44407- 2259 Nov, [facility] [id number] [place] [address] 86404- 4202 Nov, Other disorder of impulse control F63.89 and Anxiety F41.9 [facility] [id number] [place] [address] 38518- 0090 Oct, [facility] [address], [place] [address] 14 Oct, 2015 Open wound of left thigh, initial encounter S71.102A [facility] [id number] [place] [address] 17885- 4231 Oct, [facility] [address] [place] [address] 08642- 2916 Sep, Unspecified episodic mood disorder F39 ; Other disorder of impulse control 312.39 ; Combined drug dependence excluding opioids, 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 and Anxiety F41.9 [facility] [id number] [place] [address] 25194- 8365 Sep, Other disorder of impulse control 312.39 ; Combined drug dependence excluding opioids, 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 ; Anxiety F41.9 and Unspecified episodic mood disorder F39 [facility] [id number] [place] [address] 98139- 0153 Sep, Other chronic pain G89.29 [facility] [id number] [place] [address] 55655- 6608 Sep, [facility] [id number] [place] [address] 30561- 8857 Sep, [facility] [id number] [place] [address] 23574- 8351 Aug, [facility] [id number] [place] [address] 52837- 9377 Aug, [facility] [id number] [place] [address] 07204- 2812 Aug, [facility] [id number] [place] [address] 76934- 9920 Jul, [facility] [id number] [place] [address] 45408- 0622 Jul, [facility] [id number] [place] [address] 17425- 4130 Jul, [facility] [id number] [place] [address] 46988- 6945 17 Jul, 2015 Arthritis M19.90 ; Chronic hepatitis C without hepatic coma B18.2 and Left hip pain M25.552 [facility] [id number] [place] [address] 39390- 6738 Jul, Left knee pain M25.562 [facility] [id number] [place] [address] 52189- 8295 Jul, Combined drug dependence excluding opioids, 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 ; Anxiety F41.9 ; Other disorder of impulse control 312.39 and Unspecified episodic mood disorder F39 [facility] [id number] [place] [address] 40779- 6402 Jul, Left knee pain M25.562 [facility] [address] 04789- 4429 Jul, Left knee pain M25.562 and Left hip pain M25.552 [facility] [id number] [place] [address] 60025- 7629 Jul, [facility] [id number] [place] [address] 22343- 9838 June, [facility] [id number] [place] [address] 96116- 9482 June, Combinations of drug dependence excluding opioid type drug, unspecified abuse 304.80 ; Other disorder of impulse control 312.39 ; Unspecified episodic mood disorder F39 and Anxiety F41.9 [facility] [id number] [place] [address] 93247- 9982 June, Other fatigue R53.83 ; Headache R51 and Left knee pain M25.562 [facility] [id number] [place] [address] 57578- 9571 June, Unspecified episodic mood disorder F39 ; Combinations of drug dependence excluding opioid type drug, unspecified abuse 304.80 ; Other disorder of impulse control 312.39 and Anxiety F41.9 [facility] [address], [place] [address]- 8280 June, Anxiety F41.9 [facility] [id number] [place] [address] 04626- 1288 June, Pain in left knee M25.562 [facility] [id number] [place] [address] 19113- 6794 June, Anxiety F41.9 and Combinations of drug dependence excluding opioid type drug, unspecified abuse 304.80 [facility] [id number] [place] [address] 65693- 4419 June, Unspecified episodic mood disorder 296.90 ; Combinations of drug dependence excluding opioid type drug, unspecified abuse 304.80 and Other disorder of impulse control 312.39 [facility] [id number] [place] [address] 83692- 5668 June, Anxiety F41.9 and Unspecified episodic mood disorder 296.90 [facility] [address] [place] [address] 87557- 8181 May, Arthritis M19.90 [facility] [id number] [place] [address] 96627- 0041 May, Arthritis M19.90 [facility] [address] [place] [address] 82595- 8246 May, Anxiety F41.9 ; Combinations of drug dependence excluding opioid type drug, unspecified abuse 304.80 and Other disorder of impulse control 312.39 [facility] [address] [place] [address] 57328- 0813 May, Left knee pain M25.562 [facility] [id number] [place] [address] 73451- 5035 May, Arthritis M19.90 [facility] [id number] [place] [address] 61959- 0018 May, [facility] [address], [place] [address]- 8062 May, Anxiety F41.9 ; Unspecified episodic mood disorder 296.90 ; Combinations of drug dependence excluding opioid type drug, unspecified abuse 304.80 and Other disorder of impulse control 312.39 [facility] [id number] [place] [address] 60961- 1712 May, Left knee pain M25.562 [facility] [id number] [place] [address] 18205- 0668 May, Left knee pain M25.562 ; Combinations of drug dependence excluding opioid type drug, unspecified abuse 304.80 ; Other disorder of impulse control 312.39 ; Fibromyalgia M79.7 ; Hypertension I10 ; Unspecified episodic mood disorder 296.90 and Left hip pain M25.552 [facility] [id number] [place] [address] 29571- 3420 May, Unspecified episodic mood disorder 296.90 ; Other disorder of impulse control 312.39 ; Combinations of drug dependence excluding opioid type drug, unspecified abuse 304.80 and Anxiety F41.9 [facility] [id number] [place] [address] 14977- 3883 May, Left knee pain M25.562 ; Combinations of drug dependence excluding opioid type drug, unspecified abuse 304.80 ; Other disorder of impulse control 312.39 ; Fibromyalgia M79.7 ; Hypertension I10 ; Unspecified episodic mood disorder 296.90 and Left hip pain M25.552 [address] [address] [place] [address] 11288- 6863 May, Anxiety F41.9 ; Unspecified episodic mood disorder 296.90 ; Other disorder of impulse control 312.39 and Combinations of drug dependence excluding opioid type drug, unspecified abuse 304.80 [facility] [address] [address]- 2700 Apr, 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 and 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, implants and grafts, initial encounter T84.82XA [facility] [address] [address]- 7180 28 Apr, 2015 Anxiety F41.9 ; Unspecified episodic mood disorder 296.90 ; Combinations of drug dependence excluding opioid type drug, unspecified abuse 304.80 and Other disorder of impulse control 312.39 [facility] [id number] [place] [address] 12699- 0473 25 Apr, 2015 Arthritis M19.90 [facility] [id number] [place] [address] 66109- 4327 21 Apr, 2015 Anxiety F41.9 ; Unspecified episodic mood disorder 296.90 ; Combinations of drug dependence excluding opioid type drug, unspecified abuse 304.80 and Other disorder of impulse control 312.39 [facility] [id number] [place] [address] 24070- 5052 17 Apr, 2015 Arthritis M19.90 [facility] [id number] [place] [address] 13839- 2693 15 Apr, 2015 [facility] [id number] [place] [address] 71179- 4413 15 Apr, 2015 [facility] [id number] [place] [address] 04749- 1374 14 Apr, 2015 Unspecified episodic mood disorder 296.90 ; Combinations of drug dependence excluding opioid type drug, unspecified abuse 304.80 ; Other disorder of impulse control 312.39 and Anxiety F41.9 [facility] [id number] [place] [address] 46328 -4590 11 Apr, 2015 Left knee pain M25.562 [facility] [id number] [place] [address] 42086- 9182 11 Apr, 2015 [facility] [id number] [place] [address] 54024- 2722 29 Mar, 2015 Unspecified episodic mood disorder 296.90 ; Anxiety F41.9 ; Other disorder of impulse control 312.39 and Combinations of drug dependence excluding opioid type drug, unspecified abuse 304.80 [facility] [id number] [place] [address] 05224- 6794 Mar, Hyperpigmentation L81.9 [facility] [id number] [place] [address]- 6103 Mar, Arthritis M19.90 and Anxiety F41.[address] 211282- 0422 Mar, Unspecified episodic mood disorder F39 ; Combined drug dependence excluding opioids, 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 ; Other disorder of impulse control F63.89 and Anxiety F41.[address] 17353- 5280 12 Mar, 2015 Well woman exam Z01.419 ; Other fatigue R53.83 ; Hot flashes N95.1 ; Depression, unspecified depression type F32.9 and Body mass index (BMI) of 23.0-23.9 in adult Z68.23 [facility] [id number] [place] [address] 17368- 1153 11 Mar, 2015 Unspecified episodic mood disorder 296.90 ; Other disorder of impulse control 312.39 and Anxiety F41.9 [facility] [id number] [place] [address] 44739- 0642 11 Mar, 2015 Well woman exam Z01.419 [...] of breast Z12.39 and Limited mobility Z74.09 [facility] [address] 02671- 9352 Mar, [facility] [address] 81372- 9360 Mar, [facility] [address] [address]10- 1812 Mar, [place] [address] [address]- [address] Mar, Other specified complication of internal orthopedic prosthetic devices, implants and grafts, initial encounter T84.89XA ; Fibromyalgia M79.7 ; Hypertension I10 ; Anemia D64.9 ; Insomnia G47.00 ; Anxiety F41.9 ; Arthritis M19.90 and Migraine G43.909 [place] [address] [address]238- 1182 Mar, [place] [address] [address]20- 1174 Feb, [place] [address] 50990- 6596 Feb, Arthritis M19.90 and Anxiety F41.9 [place] [address] 21175- 7555 Feb, [place] [address] 56113- 8842 Feb, [facility] [address] 10776- 4296 Feb, [place] [address] 47750- 3334 Feb, [facility] [address] 98125- 1641 Feb, Anxiety F41.9 [place] [address] 68846- 1464 Feb, [facility] [address] [address] 6911 Feb, [facility] [address] [place] [id number] [place] [address] 62674- 8801 Feb, 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 and Fibromyalgia M79.7 [facility] [address] [place] [id number] [place] [address] 34458- 3537 Feb, [facility] [address] [place] [id number] [place] [address] 57112- 6303 Jan, [facility] [id number] [place] [address] 17473- 6372 Jan, [facility] [address] [place] [id number] [place] [address] 51314- 4559 Jan, [facility] [id number] [place] [address] 59597- 8306 Jan, [facility] [address], [place] [address]- 4684 Jan, [facility] [id number] [place] [address] 19731- 0288 Jan, [facility] [address], [place] [address]- 8746 Jan, [facility] [id number], [place] [address]- 6890 Jan, [facility] [id number], [place] [address] 3799 Dec, [facility] [id number] [place] [address] 30024- 3310 Dec, Left knee pain M25.562 [facility] [id number], [place] [address]- 8486 Dec, Left knee pain M25.562 [facility] [id number] [place] [address] 77354- 4763 16 Dec, 2014 Fibromyalgia M79.7 ; Hypertension I10 and Arthritis M19.90 [facility] [address] [place] [id number] [place] [address] 14006- 2445 Dec, [facility] [address] [place] [id number] [place] [address] 93608- 4268 Dec, [facility] [place] [facility] [address] [place] [id number] [place] [address] 60297- 5069 Dec, [facility] [address] [place] [id number] [place] [address] 35645- 5026 Dec, [facility] [place] [facility] [address] [place] [id number] [place] [address] 09771- 7901 Nov, [facility] [place] [facility] [address] [place] [id number] [place] [address] 08027- 7735 Nov, [facility] [place] [facility] [address] [place] [id number] [place] [address] 06254- 7233 Nov, [facility] [place] [facility] [address] [place] [id number] [place] [address] 21129- 5095 Nov, Hypertension I10 [facility] [place] [facility] [address] [place] [id number] [place] [address] 99290- 0310 23 Oct, 2014 [facility] [place] [facility] [address], [place] [address]- 3424 17 Sep, 2014 [facility] [place] [facility] [id number] [place] [address] 85297- 8647 04 Sep, 2014 [facility] [place] [facility] [id number] [place] [address] 19407- 4354 04 Sep, 2014 [facility] [place] [facility] [address] [place] [id number] [place] [address] 83819- 3336 03 Oct, 2014 [facility] [address], [place] [address]- 3063 Sep, [facility] [place] [facility] [address] [place] [id number] [place] [address] 99071- 3506 Sep, [facility] [place] [facility] [address] [id number] [place] [address]- 5528 Sep, Hip pain associated with recalled total hip arthroplasty hardware 996.77 [facility] [address] [id number] [place] [address] 2546 Sep, [facility] [address] [id number] [place] [address]- 3126 Sep, [facility] [address] [id number] [place] [address]- 1711 Sep, [facility] [address] [id number] [place] [address]- 2574 Aug, [facility] [place] [facility] [address] [id number] [place] [address]- 3227 Jul, [facility] [place] [facility] [address] [id number] [place] [address]- 0825 June, [facility] [address] [id number] [place] [address]- 9332 June, [facility] [place] [facility] [address] [id number] [place] [address]- 5916 June, [facility] [address] [facility] [id number] [address]- 0680 June, [facility] [place] [facility] [address] [id number] [place] [address]- 5866 June, [facility] [address] [id number], [place] [address]- 9926 June, [facility] [address] [id number] [place] [address]- 3974 May, [facility] [address] [id number] [place] [address]- 8826 May, [facility] [address] [id number], [place] [address]- 4900 May, [facility] [place] [facility] [address] [id number] [place] [address]- 6622 30 Apr, 2014 [facility] [place] [facility] [address] [id number] [place] [address]- 9237 30 Apr, 2014 [facility] [place] [facility] [address] [id number] [place] [address]- 4789 Apr, [facility] [place] [facility] [address] [id number] [place] [address]- 8507 Apr, [facility] [place] [facility] [address] [id number] [place] [address]- 0093 Apr, [facility] [place] [facility] [address] [id number] [place] [address]- 5222 Apr, [facility] [place] [facility] [address] [id number] [place] [address]- 0001 Apr, [facility] [place] [facility] [address] [id number] [place] [address]- 3975 Apr, [facility] [place] [facility] [address] [id number] [place] [address]- 7608 Apr, [facility] [place] [facility] [address] [id number] [place] [address]- 6252 Apr, [facility] [place] [facility] [address] [id number] [place] [address]- 9177 Apr, [facility] [place] [facility] [address] [id number] [place] [address]- 6564 Mar, [facility] [place] [facility] [address] [id number] [place] [address]- 1100 Mar, [facility] [place] [facility] [address] [id number] [place] [address]- 7002 Mar, [facility] [place] [facility] [address] [id number] [place] [address]- 6679 Mar, [facility] [place] [facility] [address] [id number] [place] [address]- 2099 10 Mar, 2014 [facility] [address] [id number] [place] [address]- 6978 10 Mar, 2014 [facility] [address] [id number] [place] [address]- 0178 15 Feb, 2014 [facility] [address] [id number] [place] [address]- 8339 Feb, [facility] [address] [id number] [place] [address]- 8050 Feb, [facility] [address] [id number] [place] [address]- 0243 Feb, [facility] [address] [id number] [place] [address]- 6241 Jan, [facility] [address] [id number] [place] [address]- 7246 Jan, [facility] [address] [id number] [place] [address]- 7677 Jan, [facility] [address] [id number] [place] [address]- 2507 Jan, [facility] [address] [id number] [place] [address]- 6725 Dec, [facility] [place] [facility] [address] [id number] [place] [address]- 2658 Dec, [facility] [place] [facility] [address] [id number] [place] [address]- 2405 Dec, [facility] [place] [facility] [address] [id number] [place] [address]- 1210 Dec, [facility] [place] [facility] [address] [id number] [place] [address]- 5207 Dec, [facility] [place] [facility] [address] [id number] [place] [address]- 5437 Dec, [facility] [place] [facility] [address] [id number] [place] [address]- 7673 Dec, [facility] [place] [facility] [address] [id number] [place] [address]- 2303 Dec, [facility] [place] [facility] [address] [id number] [place] [address]- 4850 Dec, [facility] [place] [facility] [address] [id number] [place] [address]- 5934 Dec, [facility] [place] [facility] [address] [id number] [place] [address]- 5421 Dec, [facility] [place] [facility] [address] [id number] [place] [address]- 3829 31 Nov, 2013 [facility] [place] [facility] [address] [id number] [place] [address]- 8579 28 Nov, 2013 [facility] [place] [facility] [address] [id number] [place] [address]- 3339 28 Nov, 2013 [facility] [place] [facility] [address] [id number] [place] [address]- 0915 17 Nov, 2013 [facility] [place] [facility] [address] [id number] [place] [address]- 2646 17 Nov, 2013 [facility] [place] [facility] [address] [id number] [place] [address]- 1623 15 Nov, 2013 [facility] [place] [facility] [address] [id number], [place] [address]- 3082 15 Nov, 2013 [facility] [place] [facility] [address] [id number] [place] [address]- 4345 15 Nov, 2013 [facility] [place] [facility] [address] [id number] [place] [address]- 5826 15 Nov, 2013 [facility] [place] [facility] [address] [id number], [place] [address]- 6739 14 Nov, 2013 [facility] [place] [facility] [address] [id number], [place] [address]- 7924 14 Nov, 2013 [facility] [place] [facility] [address] [id number] [place] [address]- 9597 14 Nov, 2013 [facility] [place] [facility] [address] [id number] [place] [address]- 4084 14 Nov, 2013 [facility] [place] [facility] [address] [id number] [place] [address]- 3820 13 Nov, 2013 [facility] [place] [facility] [address] [id number] [place] [address]- 3859 13 Nov, 2013 [facility] [place] [facility] [address] [id number] [place] [address]- 9889 11 Nov, 2013 [facility] [place] [facility] [address] [id number] [place] [address]- 8044 11 Nov, 2013 [facility] [place] [facility] [address] [id number] [place] [address]- 4827 07 Nov, 2013 [facility] [place] [facility] [address] [id number] [place] [address]- 5717 07 Nov, 2013 [facility] [place] [facility] [address] [id number] [place] [address]- 5180 07 Nov, 2013 [facility] [place] [facility] [address] [id number] [place] [address]- 0953 07 Nov, 2013 [facility] [place] [facility] [address] [id number], [place] [address]- 7589 30 Sep, 2013 [facility] [place] [facility] [address] [id number], [place] [address]- 2115 30 Sep, 2013 [facility] [place] [facility] [address] [id number] [place] [address]- 7762 26 Sep, 2013 [facility] [place] [facility] [address] [id number] [place] [address]- 3767 26 Sep, 2013 [facility] [place] [facility] [address] [id number] [place] [address]- 9250 22 Oct, 2013 [facility] [place] [facility] [address] [id number] [place] [address]- 3626 22 Oct, 2013 [facility] [place] [facility] [address] [id number] [place] [address]- 8251 18 Oct, 2013 [facility] [place] [facility] [address] [id number] [place] [address]- 2543 18 Oct, 2013 [facility] [place] [facility] [address] [id number] [place] [address]- 5243 Oct, 2013 [facility] [place] [facility] [address] [id number] [place] [address]- 4423 18 Oct, 2013 [facility] [place] [facility] [address] [id number] [place] [address]- 9355 Oct, 2013 [facility] [place] [facility] [address] [id number] [place] [address]- 8998 Oct, 2013 [facility] [place] [facility] [address] [id number] [place] [address]- 6553 Oct, 2013 [facility] [place] [facility] [address] [id number] [place] [address]- 8003 Oct, [facility] [place] [facility] [address] [id number] [place] [address]- 3777 Sep, [facility] [place] [facility] [address] [id number] [place] [address]- 2013 Sep, [facility] [place] [facility] [address] [id number] [place] [address]- 6432 Sep, [facility] [place] [facility] [address] [id number] [place] [address]- 4849 Sep, [facility] [place] [facility] [address] [id number] [place] [address]- 6244 Sep, [facility] [place] [facility] [address] [id number] [place] [address]- 9928 Sep, [facility] [place] [facility] [address] [id number] [place] [address]- 3488 Sep, [facility] [place] [facility] [address] [id number] [place] [address]- 0458 Sep, [facility] [place] [facility] [address] [id number] [place] [address]- 0833 Sep, [facility] [place] [facility] [address] [id number] [place] [address]- 5146 Sep, [facility] [place] [facility] [address] [id number] [place] [address]- 4119 Sep, [facility] [place] [facility] [address] [id number] [place] [address]- 7239 Sep, [facility] [place] [facility] [address] [id number] [place] [address]- 2374 Sep, [facility] [place] [facility] [address] [id number] [place] [address]- 1547 Sep, [facility] [place] [facility] [address] [id number] [place] [address]- 9238 Sep, [facility] [place] [facility] [address] [id number] [place] [address]- 0913 Sep, [facility] [place] [facility] [address] [id number] [place] [address]- 7068 Sep, [facility] [place] [facility] [address] [id number] [place] [address]- 7974 Sep, [facility] [place] [facility] [address] [id number] [place] [address]- 2942 Aug, [facility] [place] [facility] [address] [id number] [place] [address]- 2971 Aug, [facility] [place] [facility] [address] [id number] [place] [address]- 9260 Aug, [facility] [place] [facility] [address] [id number] [place] [address]- 8357 Aug, [facility] [place] [facility] [address] [id number] [place] [address]- 4898 Aug, [facility] [place] [facility] [address] [id number] [place] [address]- 7780 Aug, [facility] [place] [facility] [address] [id number] [place] [address]- 6986 Jul, [facility] [place] [facility] [address] [id number] [place] [address]- 8549 Jul, [facility] [place] [facility] [address] [id number] [place] [address]- 2171 Jul, [facility] [place] [facility] [address] [id number] [place] [address]- 9494 Jul, [facility] [place] [facility] [address] [id number] [place] [address]- 1484 June, [facility] [place] [facility] [address] [id number] [place] [address]- 0266 June, [facility] [place] [facility] [address] [id number] [place] [address]- 2845 June, [facility] [place] [facility] [address] [id number] [place] [address]- 7123 June, [facility] [place] [facility] [address] [id number] [place] [address]- 0248 June, [facility] [place] [facility] [address] [id number] [place] [address]- 6213 June, [facility] [place] [facility] [address] [id number] [place] [address]- 4611 June, [facility] [place] [facility] [address] [id number] [place] [address]- 0790 May, [facility] [place] [facility] [address] [id number] [place] [address]- 0723 May, [facility] [place] [facility] [address] [id number] [place] [address]- 0342 May, [facility] [place] [facility] [address] [id number] [place] [address]- 0904 28 May, 2013 [facility] [place] [facility] [address] [id number] [place] [address]- 4990 May, [facility] [place] [facility] [address] [id number] [place] [address]- 5586 May, [facility] [place] [facility] [address] [id number] [place] [address]- 2278 31 Apr, 2013 [facility] [place] [facility] [address] [id number] [place] [address]- 7599 31 Apr, 2013 [facility] [place] [facility] [address] [id number] [place] [address]- 7785 Apr, [facility] [place] [facility] [address] [id number] [place] [address]- 0067 Apr, [facility] [place] [facility] [address] [id number] [place] [address]- 4143 14 Apr, 2013 [facility] [place] [facility] [address] [id number] [place] [address]- 8903 14 Apr, 2013 [facility] [place] [facility] [address] [id number] [place] [address]- 0053 12 Apr, 2013 [facility] [place] [facility] [address] [id number] [place] [address]- 7296 12 Apr, 2013 [facility] [place] [facility] [address] [id number] [place] [address]- 8279 10 Apr, 2013 [facility] [place] [facility] [address] [id number] [place] [address]- 3187 10 Apr, 2013 [facility] [place] [facility] [address] [id number] [place] [address]- 5026 04 Apr, 2013 [facility] [place] [facility] [address] [id number] [place] [address]- 5710 04 Apr, 2013 [facility] [place] [facility] [address] [id number] [place] [address]- 4310 Apr, [facility] [place] [facility] [address] [id number] [place] [address]- 4172 Apr, [facility] [place] [facility] [address] [id number] [place] [address]- 7067 Mar, [facility] [place] [facility] [address] [id number] [place] [address]- 4329 Mar, [facility] [place] [facility] [address] [id number] [place] [address]- 3630 Mar, [facility] [place] [facility] [address] [id number] [place] [address]- 9446 Feb, [facility] [place] [facility] [address] [id number] [place] [address]- 4498 Feb, [facility] [place] [facility] [address] [id number] [place] [address] Feb, [facility] [place] [facility] [address] [id number] [place] [address] Feb, [facility] [place] [facility] [address] [id number] [place] [address] Feb, [facility] [place] [facility] [address] [id number] [place] [address] Feb, [facility] [place] [facility] [address] [id number] [place] [address] Feb, [facility] [place] [facility] [address] [id number] [place] [address] Feb, [facility] [place] [facility] [address] [id number] [place] [address] Feb, [facility] [place] [facility] [address] [id number] [place] [address] Feb, [facility] [place] [facility] [address] [id number] [place] [address] Jan, [facility] [place] [facility] [address] [id number] [place] [address] 30 Jan, 2013 [facility] [address] [id number] [place] [address] Jan, [facility] [address] [id number] [place] [address] Jan, [facility] [address] [id number] [place] [address] Jan, [facility] [address] [id number] [place] [address] Jan, [facility] [address] [id number] [place] [address] Jan, [facility] [address] [id number] [place] [address] Jan, [facility] [address] [id number] [place] [address] 28[address] Jan, [facility] [address] [id number] [place] [address] Jan, [facility] [address] [id number] [place] [address] Jan, [facility] [address] [id number] [place] [address] 17 Jan, 2013 [facility] [address] [id number] [place] [address] 16 Jan, 2013 [facility] [address] [id number] [place] [address] 11 Jan, 2013 [facility] [address] [id number] [place] [address]- [address]06 Jan, [facility] [address] [id number] [place] [address] Jan, [facility] [address] [id number] [place] [address] Jan, [facility] [place] [facility] [address] [id number] [place] [address] Jan, [facility] [place] [facility] [address] [id number] [place] [address] Jan, [facility] [place] [facility] [address] [id number] [place] [address] 245[address] Jan, [facility] [place] [facility] [address] [id number] [place] [address] Jan, [facility] [place] [facility] [address] [id number] [place] [address] 8733 Dec, [facility] [place] [facility] [address] [id number] [place] [address]- 67[address] Dec, [facility] [place] [facility] [address] [id number] [place] [address] 1073 Dec, [facility] [place] [facility] [address] [id number] [place] [address] Dec, [facility] [place] [facility] [address] [id number] [place] [address] Dec, [facility] [place] [facility] [address] [id number], [place] [address] Dec, [facility] [place] [facility] [address] [id number], [place] [address] Dec, [facility] [place] [facility] [address] [id number], [place] [address]- [address] Dec, [facility] [place] [facility] [address] [id number] [place] [address]- 1669 Dec, [facility] [place] [facility] [address] [id number] [place] [address]- [address]30 Dec, [facility] [place] [facility] [address] [id number] [place] [address] Nov, [facility] [place] [facility] [address] [id number] [place] [address]- [address] 31 Nov, 2012 [facility] [place] [facility] [address] [id number] [place] [address]- [address] 18 Nov, 2012 [facility] [place] [facility] [address] [id number] [place] [address]- [address] 18 Nov, 2012 [facility] [place] [facility] [address] [id number] [place] [address]- 1528 11 Nov, 2012 [facility] [place] [facility] [address] [id number] [place] [address]- 9540 11 Nov, 2012 [facility] [place] [facility] [address] [id number] [place] [address]- 4818 11 Nov, 2012 [facility] [place] [facility] [address] [id number] [place] [address]- 3899 11 Nov, 2012 [facility] [place] [facility] [address] [id number] [place] [address]- [address] 10 Nov, 2012 [facility] [place] [facility] [address] [id number] [place] [address]- 4036 03 Nov, 2012 [facility] [place] [facility] [address] [id number] [place] [address]- [address]604 26 Oct, 2012 [facility] [place] [facility] [address] [id number] [place] [address]- 2688 26 Oct, 2012 [facility] [place] [facility] [address] [id number] [place] [address]- 279[address] 26 Oct, 2012 [facility] [place] [facility] [address] [id number], [place] [address] 25 Oct, 2012 [facility] [place] [facility] [address] [id number] [place] [address] 06 Oct, 2012 [facility] [place] [facility] [address] [id number], [place] [address] 08 Sep, 2012 [facility] [place] [facility] [address] [id number], [place] [address] Sep, [facility] [place] [facility] [address] [id number] [place] [address] Aug, [facility] [address] [id number] [place] [address]- 113[address] Aug, [facility] [place] [facility] [address] [id number] [place] [address]- 6466 Aug, [facility] [place] [facility] [address] [id number] [place] [address]- [address] Aug, [facility] [address] [id number] [place] [address]- 2549 Aug, [facility] [place] [facility] [address] [id number] [place] [address]- 2946 Aug, [facility] [address] [id number] [place] [address]- [address] Aug, [facility] [address] [id number] [place] [address]- [address] Jul, [facility] [facility] [address] [id number] [place] [address] Jul, [facility] [address] [id number] [place] [address] June, [facility] [address] [id number] [place] [address] June, [facility] [place] [facility] [address] [id number] [place] [address] June, [facility] [place] [facility] [address] [id number] [place] [address] June, [facility] [place] [facility] [address] [id number] [place] [address] June, [facility] [place] [facility] [address] [id number] [place] [address] 4[address] June, [facility] [place] [facility] [address] [id number] [place] [address] June, [facility] [address] [id number] [place] [address] 6[address] June, [facility] [address] [id number] [place] [address]396 June, [facility] [address] [id number] [place] [address]103 June, [facility] [place] [facility] [address] [id number] [place] [address] 1444 June, [facility] [address] [id number] [place] [address] May, [facility] [place] [facility] [address] [id number] [place] [address]- 7596 May, [facility] [address] [id number] [place] [address] 2384 May, [facility] [place] [facility] [address] [id number] [place] [address] 5494 May, [facility] [place] [facility] [address] [id number] [place] [address] 7078 Apr, [facility] [place] [facility] [address] [id number] [place] [address]- 2256 Apr, [facility] [place] [facility] [address] [id number], [place] [address] Apr, [facility] [place] [facility] [address] [id number], [place] [address] Mar, [facility] [place] [facility] [address] [id number] [place] [address] 4687 Mar, [facility] [place] [facility] [address] [id number] [place] [address]- 9397 Feb, [facility] [place] [facility] [address] [id number] [place] [address]- 6287 Feb, [facility] [place] [facility] [address] [id number] [place] [address]- 7146 21 Feb, 2012 [facility] [address] [id number] [place] [address]- 9317 21 Feb, 2012 [facility] [address] [id number] [place] [address]- 7256 16 Feb, 2012 [facility] [address] [id number] [place] [address]- 0036 14 Feb, 2012 [facility] [address] [id number] [place] [address]- 7276 08 Feb, 2012 [facility] [address] [id number] [place] [address] 31 Jan, 2012 [facility] [address] [id number] [place] [address]- 1528 31 Jan, 2012 [facility] [place] [facility] [address] [id number] [place] [address]- 7232 28 Jan, 2012 [facility] [place] [facility] [address] [id number] [place] [address]- 4677 17 Jan, 2012 [facility] [place] [facility] [address] [id number] [place] [address]- 9075 17 Jan, 2012 [facility] [place] [facility] [address] [id number] [place] [address]- 0805 Jan, [facility] [place] [facility] [address] [id number] [place] [address] 2547 11 Jan, 2012 [facility] [address] [id number] [place] [address]- 2546 10 Jan, 2012 [facility] [address] [id number] [place] [address]- 6996 10 Jan, 2012 [facility] [address] [id number] [place] [address]- 5796 03 Jan, 2012 [facility] [address] [id number] [place] [address] 4007 Jan, [facility] [place] [facility] [address] [id number] [place] [address]- 7027 Dec, [facility] [place] [facility] [address] [id number] [place] [address]- 9396 Dec, [facility] [place] [facility] [address] [id number] [place] [address]- 2290 Dec, [facility] [place] [facility] [address] [id number] [place] [address]- 1551 Dec, [facility] [place] [facility] [address] [id number] [place] [address]- 1579 Nov, [facility] [place] [facility] [address] [id number] [place] [address] Nov, [facility] [place] [facility] [address] [facility] [id number] [place] [address]- 6189 Nov, [facility] [place] [facility] [address] [id number], [place] [address]- 9984 27 Oct, 2011 [facility] [place] [facility] [address] [id number] [place] [address]- 3509 24 Oct, 2011 [facility] [place] [facility] [address] [facility] [id number], [place] [address]- 8258 21 Oct, 2011 [facility] [place] [facility] [address] [facility] [id number], [place] [address]- 8867 10 Oct, 2011 [facility] [place] [facility] [address] [id number], [place] [address]- 4787 07 Oct, 2011 [facility] [place] [facility] [address] [id number] [place] [address]- 7106 04 Oct, 2011 [facility] [place] [facility] [address] [id number], [place] [address]- 1696 04 Oct, 2011 [facility] [place] [facility] [address] [facility] [id number], [place] [address]- 0714 29 Sep, 2011 [facility] [place] [facility] [address] [id number], [place] [address]- 3013 Sep, [facility] [place] [facility] [address] [id number] [place] [address]- 8907 Sep, [facility] [place] [facility] [address] [id number] [place] [address]- 8336 Sep, [facility] [place] [facility] [address] [id number] [place] [address]- 1796 Sep, [facility] [place] [facility] [address] [id number] [place] [address]- 7268 30 Aug, 2011 [facility] [place] [facility] [address] [id number] [place] [address]- 6756 Aug, [facility] [place] [facility] [address] [id number] [place] [address]- 6408 Aug, [facility] [place] [facility] [address] [id number] [place] [address]- 4683 16 Aug, 2011 [facility] [place] [facility] [address] [id number] [place] [address]- 9774 Aug, [facility] [place] [facility] [address] [id number] [place] [address]- 4459 Aug, [facility] [place] [facility] [address] [id number] [place] [address]- 4554 Aug, [facility] [place] [facility] [address] [id number] [place] [address]- 8805 Jul, [facility] [place] [facility] [address] [id number] [place] [address]- 3900 Jul, [facility] [place] [facility] [address] [id number] [place] [address]- 2215 Jul, [facility] [place] [facility] [address] [id number] [place] [address]- 9017 Jul, [facility] [place] [facility] [address] [id number] [place] [address]- 3040 Jul, [facility] [place] [facility] [address] [id number] [place] [address]- 3616 11 Jul, 2011 [facility] [address] [id number] [place] [address]- 1545 07 Jul, 2011 [facility] [place] [facility] [address] [id number] [place] [address]- 8116 Jul, [facility] [place] [facility] [address] [id number] [place] [address]- 7597 Jul, [facility] [place] [facility] [address] [id number] [place] [address]- 3453 June, [facility] [place] [facility] [address] [id number] [place] [address]- 8834 June, [facility] [place] [facility] [address] [id number] [place] [address]- 4995 June, [facility] [place] [facility] [address] [id number] [place] [address]- 8627 June, [facility] [address] [id number] [place] [address]- 6486 June, [facility] [place] [facility] [address] [id number] [place] [address]- 4391 June, [facility] [place] [facility] [address] [id number] [place] [address]- 5706 June, [facility] [place] [facility] [address] [id number] [place] [address]- 6383 June, [facility] [place] [facility] [address] [id number] [place] [address]- 9720 May, [facility] [place] [facility] [address] [id number] [place] [address]- 9208 May, [facility] [place] [facility] [address] [id number] [place] [address]- 7306 May, [facility] [place] [facility] [address] [id number] [place] [address]- 3779 May, [facility] [place] [facility] [address] [id number] [place] [address]- 3688 16 May, 2011 [facility] [place] [facility] [address] [id number] [place] [address]- 4058 16 May, 2011 [facility] [place] [facility] [address] [id number] [place] [address]- 2105 May, [facility] [place] [facility] [address] [id number] [place] [address]- 7829 27 Apr, 2011 [facility] [place] [facility] [address] [id number] [place] [address]- 7116 Apr, [facility] [place] [facility] [address] [id number] [place] [address]- 8706 Apr, [facility] [place] [facility] [address] [id number] [place] [address]- 0373 Apr, [facility] [place] [facility] [address] [id number] [place] [address]- 2331 Apr, [facility] [place] [facility] [address] [id number] [place] [address]- 7843 Apr, [facility] [place] [facility] [address] [id number] [place] [address]- 9451 Apr, [facility] [place] [facility] [address] [id number] [place] [address]- 6945 Mar, [facility] [place] [facility] [address] [id number] [place] [address]- 7565 Mar, [facility] [place] [facility] [address] [id number] [place] [address]- 2883 14 Mar, 2011 [facility] [place] [facility] [address] [id number] [place] [address]- 9081 13 Mar, 2011 [facility] [place] [facility] [address] [id number] [place] [address]- 7027 09 Mar, 2011 [facility] [place] [facility] [address] [id number] [place] [address]- 2546 08 Mar, 2011 [facility] [address] [id number] [place] [address]- 9486 Mar, [facility] [address] [id number] [place] [address]- 2546 Feb, [facility] [address] [id number] [place] [address]- 4846 Feb, [facility] [address] [id number] [place] [address]- 2236 Feb, [facility] [address] [id number] [place] [address]- 9356 Feb, [facility] [address] [id number] [place] [address]- 0296 Feb, [facility] [address] [id number] [place] [address]- 5590 Feb, [facility] [address] [id number] [place] [address]- 4902 Feb, [facility] [address] [id number] [place] [address]- 8606 Feb, [facility] [address] [id number] [place] [address]- 3376 Feb, [facility] [address] [id number] [place] [address]- 6476 Feb, [facility] [address] [id number] [place] [address]- 6428 Jan, [facility] [address] [id number] [place] [address]- 1866 Jan, [facility] [address] [id number] [place] [address]- 2546 Jan, [facility] [address] [id number] [place] [address]- 2196 Jan, [facility] [place] [facility] [address] [id number] [place] [address]- 2526 Jan, [facility] [place] [facility] [address] [id number] [place] [address]- 4435 Jan, [facility] [place] [facility] [address] [id number] [place] [address]- 6795 15 Jan, 2011 [facility] [place] [facility] [address] [id number] [place] [address]- 0892 Jan, [facility] [place] [facility] [address] [id number] [place] [address]- 9398 Jan, [facility] [place] [facility] [address] [id number] [place] [address]- 6608 Jan, [facility] [place] [facility] [address] [id number] [place] [address]- 4639 Jan, [facility] [place] [facility] [address] [id number] [place] [address]- 5112 Dec, [facility] [place] [facility] [address] [id number] [place] [address]- 1332 17 Dec, 2010 [facility] [place] [facility] [address] [id number] [place] [address]- 9829 17 Dec, 2010 [facility] [place] [facility] [address] [id number] [place] [address]- 8011 16 Dec, 2010 [facility] [place] [facility] [address] [id number], [place] [address]- 9445 14 Dec, 2010 [facility] [place] [facility] [address] [id number] [place] [address]- 4044 09 Dec, 2010 [facility] [place] [facility] [address] [id number] [place] [address]- 0466 08 Dec, 2010 [facility] [place] [facility] [address] [id number] [place] [address]- 1242 07 Dec, 2010 [facility] [place] [facility] [address] [id number] [place] [address]- 0948 02 Dec, 2010 [facility] [place] [facility] [address] [id number] [place] [address]- 9988 Nov, [facility] [place] [facility] [address] [id number] [place] [address]- 9054 31 Nov, 2010 [facility] [place] [facility] [address] [id number] [place] [address]- 5164 Nov, [facility] [place] [facility] [address] [id number] [place] [address]- 2767 24 Nov, 2010 [facility] [place] [facility] [address] [id number] [place] 2252 24 Nov, 2010 [facility] [place] [facility] [address] [id number] [place] [address]- 2930 Nov, [facility] [place] [facility] [address] [id number] [place] [address]- 8519 Aug, [facility] [place] [facility] [address] [id number] [place] [address]- 6809 14 Feb, 2010 [facility] [place] [facility] [address] [id number] [place] [address]- 3735 14 Jan, 2010 [facility] [place] [facility] [address] [facility] [id number] [place] [address]- 9249 06 Jan, 2010 [facility] [place] [facility] [address] [id number] [place] [address]- 1413 Jan, [facility] [place] [facility] [address] [id number] [place] [address]- 8118 Jan, [facility] [place] [facility] [address] [id number] [place] [address]- 7823 Jan, [facility] [place] [facility] [address] [id number] [place] [address]- 4302 24 Dec, 2009 [facility] [place] [facility] [address] [id number] [place] [address]- 0572 18 Dec, 2009 [facility] [place] [facility] [address] [facility] [id number], [place] [address]- 2546 Dec, [facility] [address] [facility] [id number], [place] [address] 2546 Dec, [facility] [address] [facility] [id number], [place] [address] 2546 Nov, [facility] [address] [facility] [id number], [place] [address] 2546 Nov, [facility] [address] [facility] [id number], [place] [address]- 3880 Nov, IMMUNIZATIONS No Known Immunizations SOCIAL HISTORY Never Assessed REASON FOR VISIT Refill request PLAN OF CARE VITAL SIGNS MEDICATIONS Medication Instructions Dosage Frequency Start Date End Date Duration Status Lyrica 150 MG Orally 3 times a day 1 capsule 8h Active Fluoxetine HCl 40 mg Orally Once a day 2 capsule in the morning 24h 30 Active Cyclobenzaprine HCl 10 MG TAKE ONE TABLET BY MOUTH THREE TIMES DAILY 30 Active Sumatriptan Succinate 100 mg Orally [...]
--- OUTSIDE RECORDS SUMMARY | 2018-01-13 21:19 | XMS REPORT ---
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
--- OUTSIDE RECORDS SUMMARY | 2018-01-13 21:19 | XMS REPORT ---
Author Author WYATT SOTO [facility] eClinicalWorks Address Unknown Phone Unavailable Care Team Providers Care Astrochemist Name Role Phone WYATT SOTO CP Unavailable [...] the oral soft tissues 528.9 Active Medications Medication Code System Code Instructions Start Date End Date Status Dosage Sumatriptan Succinate [facility] [id number] 100 MG Orally Once a day 1 tablet as needed one time Results No Known Results Summary Purpose eClinicalWorks Submission
--- OUTSIDE RECORDS SUMMARY | 2018-01-13 21:19 | XMS REPORT ---
Author Author WYATT SOTO Organization [facility] Address [address] [place] [address] Care Team Providers Care Dog Obedience Instructor Name Role Phone WYATT SOTO Unavailable PROBLEMS Type Condition ICD9-CM Code FTD64-FL Code Onset Dates Condition Status SNOMED Code Problem Left hip pain M25.552 Active 74681137 Problem Other chronic pain G89.29 Active 51076166 Problem Chronic hepatitis C without hepatic coma B18.2 Active 678652833 Problem Other obesity due to excess calories E66.09 Active 740170505 Problem Body mass index (BMI) of 34.0-34.9 in adult Z68.34 Active 920335630 Problem Other psychoactive substance dependence, 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 Active 5788556 Problem 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, 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 809205238 Problem Gastroesophageal reflux disease, esophagitis presence not specified K21.9 Active 013526450 Problem Venous insufficiency (chronic) (peripheral) I87.2 Active 784278992 Problem Unspecified episodic mood disorder F39 Active 55239031 Problem Hypertension I10 Active 06726001 Problem Combined drug dependence excluding opioids, 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 Active 653064420 Problem Arthritis M19.90 Active 3021467 Problem 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 Active 72003920 Problem Anxiety F41.9 Active 05490229 ALLERGIES No Information ENCOUNTERS Encounter Location Date Diagnosis [facility] [address] [facility] [id number] [address] Jul, Arthritis M19.90 [facility] [address] [id number] [address] Jul, Left hip pain M25.552 ; Hypertension I10 ; Other obesity due to excess calories E66.09 and Body mass index (BMI) of 34.0-34.9 in adult Z68.34 [facility] [address], [place] [address] Jul, Unspecified episodic mood disorder F39 [facility] [id number] [place] [address] 10411- 4622 June, Gastroesophageal reflux disease, esophagitis presence not specified K21.9 [facility] [id number] [place] [address] 13938- 3097 June, [facility] [id number] [place] [address] 75414- 0257 June, [facility] [id number] [place] [address] 45230- 6933 June, Arthritis M19.90 [facility] [id number] [place] [address] 85312- 0720 June, [facility] [id number] [place] [address] 92384- 9909 June, [facility] [id number] [place] [address] 12656- 4354 June, Unspecified episodic mood disorder F39 [facility] [id number] [place] [address] 06981- 9429 May, Unspecified episodic mood disorder F39 [facility] [address] [place] [address] 31912- 1740 May, [facility] [id number] [place] [address] 67894- 5869 May, Arthritis M19.90 [facility] [address] [place] [address] 96413 -4980 May, Dysuria R30.0 ; Abscess L02.91 and Acute cystitis without hematuria N30.00 [facility] [address], [place] [address] May, Other disorder of impulse control F63.89 ; Unspecified episodic mood disorder F39 ; Combined drug dependence excluding opioids, 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 ; Anxiety F41.9 and Other psychoactive substance dependence, 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 [facility] [id number] [place] [address] 20767- 0841 May, [facility] [id number] [place] [address] 58899- 2407 May, Other disorder of impulse control F63.89 ; Unspecified episodic mood disorder F39 ; Combined drug dependence excluding opioids, 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 ; Other psychoactive substance dependence, 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XXXA [facility] [id number] [place] [address] 01141- 7571 Apr, Unspecified episodic mood disorder F39 ; Combined drug dependence excluding opioids, 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 ; Anxiety F41.9 ; Other psychoactive substance dependence, 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 and Other disorder of impulse control F63.89 [facility] [address] [place] [address] 19898- 4270 Apr, [facility] [id number] [place] [address] 80850- 7999 Apr, Arthritis M19.90 and Unspecified episodic mood disorder F39 [facility] [id number] [place] [address] 78235- 0108 Apr, Unspecified episodic mood disorder F39 [facility] [address] [place] [address] 79371- 0987 13 Apr, 2017 [facility] [id number] [place] [address] 78288- 6196 Apr, [facility] [id number] [place] [address] 67217- 3789 Apr, Unspecified episodic mood disorder F39 ; Combined drug dependence excluding opioids, 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 ; Anxiety F41.9 ; Other psychoactive substance dependence, 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 and Other disorder of impulse control F63.89 [facility] [id number] [place] [address] 89654- 0407 Mar, Unspecified episodic mood disorder F39 [place] [id number] [place] [address] 30363- 8145 Mar, Gastroesophageal reflux disease, esophagitis presence not specified K21.9 [facility] [id number] [place] [address] 04409- 8442 Mar, Arthritis M19.90 and Unspecified episodic mood disorder F39 [facility] [id number] [place] [address] 74234- 5220 Feb, [facility] [id number] [place] [address] 02938- 4256 Feb, [facility] [id number] [place] [address] 63750- 5236 Feb, [facility] [id number] [place] [address] 54335- 0378 Feb, Arthritis M19.90 [facility] [id number] [place] [address] 95162- 7257 Feb, Non-pressure chronic ulcer of right calf, 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 ; Unspecified episodic mood disorder F39 and Left hip pain M25.552 [facility] [id number] [place] [address] 08680- 3783 Feb, [facility] [id number] [place] [address] 97565- 3662 Feb, [facility] [id number] [place] [address] 20245- 6361 Jan, Arthritis M19.90 [facility] [id number] [place] [address] 32237- 9608 Jan, Left hip pain M25.552 and Non-pressure chronic ulcer of right calf, 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 [facility] [id number] [place] [address] 91387- 3879 Jan, Chronic hepatitis C without hepatic coma B18.2 [facility] [id number] [place] [address] 27607- 8651 Jan, Encounter for immunization Z23 ; Venous insufficiency ( chronic) (peripheral) I87.2 ; Non-pressure chronic ulcer of unspecified calf limited to breakdown of skin L97.201 and Gastroesophageal reflux disease, esophagitis presence not specified K21.9 [facility] [id number] [place] [address] 16049- 2225 Jan, [facility] [id number] [place] [address] 96778- 7899 Jan, Chronic hepatitis C without hepatic coma B18.2 and Encounter for immunization Z23 [facility] [id number] [place] [address] 35435- 1116 Jan, Arthritis M19.90 [facility] [id number] [place] [address] 20346- 6071 Jan, [facility] [id number] [place] [address] 61181- 8512 Dec, [facility] [id number] [place] [address] 48183- 6434 Dec, Unspecified episodic mood disorder F39 [facility] [id number] [place] [address] 49361- 2905 Dec, Arthritis M19.90 [facility] [id number] [place] [address] 93944- 5025 Dec, Arthritis M19.90 [facility] [id number] [place] [address] 38011- 1981 Nov, [facility] [id number] [place] [address] 37741- 4399 Nov, [facility] [id number] [place] [address] 97389- 3415 Nov, Other psychoactive substance dependence, 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 ; 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, 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 and Chronic hepatitis C without hepatic coma B18.2 [facility] [id number] [place] [address] 98214- 7154 Nov, Arthritis M19.90 [facility] [id number] [place] [address] 38934 -6837 Oct, Partial thickness burn of abdomen, initial encounter T21.22XA [facility] [id number] [place] [address] 44805- 4951 Oct, [facility] [address] [place] [address] 94616- 0926 Sep, Arthritis M19.90 [facility] [id number] [place] [address] 50437- 2018 Sep, [facility] [address] [place] [address] 81216- 7554 Sep, [facility] [id number] [place] [address] 38776- 7670 Sep, Unspecified episodic mood disorder F39 ; Chronic hepatitis C without hepatic coma B18.2 and Left hip pain M25.552 [facility] [id number] [place] [address] 24749- 0821 Sep, Arthritis M19.90 and Left hip pain M25.552 [facility] [address] [id number] [address]- 6063 Aug, [facility] [id number] [place] [address] 91387- 8753 Aug, [facility] [id number] [place] [address] 19636- 3987 Aug, Chronic hepatitis C without hepatic coma B18.2 [facility] [id number] [place] [address] 05393- 6934 Aug, [facility] [id number] [place] [address] 49234- 6639 Aug, Chronic hepatitis C without hepatic coma B18.2 [facility] [id number] [place] [address] 50505- 1092 Aug, 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, 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 [facility] [id number] [place] [address] 11081- 1101 Aug, [facility] [id number] [place] [address] 26221- 4669 Aug, Chronic hepatitis C without hepatic coma B18.2 and Hypertension I10 [facility] [id number] [address]- 8419 Jul, [facility] [id number] [place] [address] 94941- 0695 June, [facility] [address] [place] [address] 56545- 0178 Apr, Fibromyalgia M79.7 ; Left hip pain M25.552 and Decubitus ulcer of sacral region, stage 1 L89.151 [facility] [address] [place] [address] 80273- 0848 Apr, [facility] [id number] [place] [address] 65104- 2098 Apr, [facility] [address] [place] [address] 24148- 9694 Feb, [facility] [id number] [place] [address] 68215- 9649 Dec, Anxiety F41.9 ; Combined drug dependence excluding opioids, 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 and Unspecified episodic mood disorder F39 [facility] [id number] [place] [address] 95232- 1818 Dec, [facility] [id number] [place] [address] 88787- 9338 Nov, [facility] [id number] [place] [address] 71405- 8996 Nov, [facility] [id number] [place] [address] 39937- 9699 Nov, Other disorder of impulse control F63.89 and Anxiety F41.9 [facility] [id number] [place] [address] 00996- 5693 Oct, [facility] [id number] [place] [address] 70947 -4102 Oct, Open wound of left thigh, initial encounter S71.102A [facility] [id number] [place] [address] 42137- 1326 Oct, [facility] [id number] [place] [address] 08031- 3210 Sep, Unspecified episodic mood disorder F39 ; Other disorder of impulse control 312.39 ; Combined drug dependence excluding opioids, 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 and Anxiety F41.9 [facility] [id number] [place] [address] 50221- 8051 Sep, Other disorder of impulse control 312.39 ; Combined drug dependence excluding opioids, 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 ; Anxiety F41.9 and Unspecified episodic mood disorder F39 [facility] [id number], [place] [address]- 7883 Sep, Other chronic pain G89.29 [facility] [address] [place] [address] 00374- 0893 Sep, [facility] [address], [place] [address]- 8968 Sep, [facility] [address] [place] [address] 84321- 7209 Aug, [facility] [id number] [place] [address] 43711- 5214 Aug, [facility] [id number] [place] [address] 05820- 8766 Aug, [facility] [address] [place] [address] 99465- 6686 Jul, [facility] [id number] [place] [address] 98514- 7733 Jul, [facility] [address] [place] [address] 07228- 2585 Jul, [facility] [id number] [place] [address] 56600- 2564 Jul, Arthritis M19.90 ; Chronic hepatitis C without hepatic coma B18.2 and Left hip pain M25.552 [facility] [address] [place] [address] 43807- 1794 Jul, Left knee pain M25.562 [facility] [address] [place] [address] 77922- 6204 Jul, Combined drug dependence excluding opioids, 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 ; Anxiety F41.9 ; Other disorder of impulse control 312.39 and Unspecified episodic mood disorder F39 [facility] [address], [place] [address]- 6542 Jul, Left knee pain M25.562 [facility] [address] [id number] [address]- 9577 08 Jul, 2015 Left knee pain M25.562 and Left hip pain M25.552 [facility] [id number] [place] [address] 76095- 5732 Jul, [facility] [id number] [place] [address] 39581- 4092 June, [facility] [id number] [place] [address] 27498- 5880 June, Combinations of drug dependence excluding opioid type drug, unspecified abuse 304.80 ; Other disorder of impulse control 312.39 ; Unspecified episodic mood disorder F39 and Anxiety F41.9 [place] [id number] [place] [address] 30019- 1326 June, Other fatigue R53.83 ; Headache R51 and Left knee pain M25.562 [place] [id number] [place] [address] 33663- 9597 June, Unspecified episodic mood disorder F39 ; Combinations of drug dependence excluding opioid type drug, unspecified abuse 304.80 ; Other disorder of impulse control 312.39 and Anxiety F41.9 [place] [address] [place] [address] 08746- 3659 June, Anxiety F41.9 [place] [place] [id number] [place] [address] 38604- 7401 June, Pain in left knee M25.562 [address] [place] [address] 03971- 2735 June, Anxiety F41.9 and Combinations of drug dependence excluding opioid type drug, unspecified abuse 304.80 [place] [address] [place] [address] 00733- 1826 June, Unspecified episodic mood disorder 296.90 ; Combinations of drug dependence excluding opioid type drug, unspecified abuse 304.80 and Other disorder of impulse control 312.39 [place] [id number] [place] [address] 74531- 7626 June, Anxiety F41.9 and Unspecified episodic mood disorder 296.90 [facility] [id number] [place] [address] 25515- 3348 May, Arthritis M19.90 [facility] [id number] [place] [address] 99385- 5761 May, Arthritis M19.90 [facility] [id number] [place] [address] 79487- 7946 May, Anxiety F41.9 ; Combinations of drug dependence excluding opioid type drug, unspecified abuse 304.80 and Other disorder of impulse control 312.39 [address] [id number] [place] [address] 63450- 8430 May, Left knee pain M25.562 [facility] [id number] [place] [address] 88392- 0199 May, Arthritis M19.90 [facility] [id number] [place] [address] 16193- 0727 May, [facility] [id number] [place] [address] 52808- 5176 May, Anxiety F41.9 ; Unspecified episodic mood disorder 296.90 ; Combinations of drug dependence excluding opioid type drug, unspecified abuse 304.80 and Other disorder of impulse control 312.39 [facility] [id number] [place] [address] 62805- 5084 May, Left knee pain M25.562 [facility] [id number] [place] [address] 36466- 7031 May, Left knee pain M25.562 ; Combinations of drug dependence excluding opioid type drug, unspecified abuse 304.80 ; Other disorder of impulse control 312.39 ; Fibromyalgia M79.7 ; Hypertension I10 ; Unspecified episodic mood disorder 296.90 and Left hip pain M25.552 [facility] [id number] [place] [address] 99180- 7664 May, Unspecified episodic mood disorder 296.90 ; Other disorder of impulse control 312.39 ; Combinations of drug dependence excluding opioid type drug, unspecified abuse 304.80 and Anxiety F41.9 [place] [address]- 2000 May, Left knee pain M25.562 ; Combinations of drug dependence excluding opioid type drug, unspecified abuse 304.80 ; Other disorder of impulse control 312.39 ; Fibromyalgia M79.7 ; Hypertension I10 ; Unspecified episodic mood disorder 296.90 and Left hip pain M25.[id number] [place] [address] 92460- 1986 May, Anxiety F41.9 ; Unspecified episodic mood disorder 296.90 ; Other disorder of impulse control 312.39 and Combinations of drug dependence excluding opioid type drug, unspecified abuse 304.[id number] [place] [address] 46676- 5982 Apr, 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 and 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, implants and grafts, initial encounter T84.82XA [id number] [place] [address] 33167- 8659 Apr, Anxiety F41.9 ; Unspecified episodic mood disorder 296.90 ; Combinations of drug dependence excluding opioid type drug, unspecified abuse 304.80 and Other disorder of impulse control 312.39 [place] [address] [place] [address] 52302- 5268 Apr, Arthritis M19.90 [place] [address] [place] [address] 33889- 7844 Apr, Anxiety F41.9 ; Unspecified episodic mood disorder 296.90 ; Combinations of drug dependence excluding opioid type drug, unspecified abuse 304.80 and Other disorder of impulse control 312.39 [address] [place] [address] 57243- 9537 Apr, Arthritis M19.[address] [id number] [address]- 7462 15 Apr, 2015 [facility] [id number] [place] [address] 60923- 3030 15 Apr, 2015 [facility] [id number] [place] [address] 79098- 4670 14 Apr, 2015 Unspecified episodic mood disorder 296.90 ; Combinations of drug dependence excluding opioid type drug, unspecified abuse 304.80 ; Other disorder of impulse control 312.39 and Anxiety F41.9 [facility] [id number] [place] [address] 59331 -0281 11 Apr, 2015 Left knee pain M25.562 [facility] [id number] [place] [address] 97361- 8162 Apr, [facility] [id number] [place] [address] 80452- 1136 Mar, Unspecified episodic mood disorder 296.90 ; Anxiety F41.9 ; Other disorder of impulse control 312.39 and Combinations of drug dependence excluding opioid type drug, unspecified abuse 304.80 [facility] [id number] [place] [address] 24090- 0697 Mar, Hyperpigmentation L81.9 [facility] [address] [place] [address] 78694- 8039 Mar, Arthritis M19.90 and Anxiety F41.9 [facility] [id number] [place] [address] 20879- 8188 Mar, Unspecified episodic mood disorder F39 ; Combined drug dependence excluding opioids, 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 ; Other disorder of impulse control F63.89 and Anxiety F41.9 [facility] [address] [place] [address] 90875- 3093 Mar, Well woman exam Z01.419 ; Other fatigue R53.83 ; Hot flashes N95.1 ; Depression, unspecified depression type F32.9 and Body mass index (BMI) of 23.0-23.9 in adult Z68.23 [place] [id number] [place] [address] 62554- 2325 11 Mar, 2015 Unspecified episodic mood disorder 296.90 ; Other disorder of impulse control 312.39 and Anxiety F41.9 [address] [address] 09615- 3803 11 Mar, 2015 Well woman exam Z01.419 [...] of breast Z12.39 and Limited mobility Z74.09 [place] [address] [address]- [address] 10 Mar, 2015 [place] [address] [address]- [address] 10 Mar, 2015 [place] [address] [address]- [address] Mar, [place] [address] [address] 03 Mar, 2015 Other specified complication of internal orthopedic prosthetic devices, implants and grafts, initial encounter T84.89XA ; Fibromyalgia M79.7 ; Hypertension I10 ; Anemia D64.9 ; Insomnia G47.00 ; Anxiety F41.9 ; Arthritis M19.90 and Migraine G43.909 [place] [address] [address] Mar, [facility] [address], [place] [address] Feb, [facility] [id number] [place] [address]- [address] Feb, Arthritis M19.90 and Anxiety F41.9 [facility] [id number], [place] [address] Feb, [facility] [id number] [place] [address]- [address] Feb, [facility] [id number] [place] [address] 88[address]- [address]40 Feb, [facility] [id number] [place] [address] 41332- 6841 Feb, [facility] [id number] [place] [address] 64[address]- [address] Feb, Anxiety F41.9 [facility] [id number] [place], [place] [address]98- 5039 Feb, [facility] [place] [facility] [id number] [place] [address] 81890- 2651 Feb, [facility] [place] [facility] [id number], [place] [address] 1468 Feb, 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 [address] [address] 44[address] Jan, [facility] [address], [place] [address] Jan, [facility] [id number] [place] [address] 225925- 2682 Jan, [facility] [place] [facility] [id number] [place] [address] 36486- 4558 Dec, [facility] [place] [facility] [id number] [place] [address] 00028- 7134 Dec, Left knee pain M25.562 [facility] [place] [facility] [id number] [place] [address] 70248- 4906 Dec, Left knee pain M25.562 [facility] [place] [facility] [id number] [place] [address] 58414- 7970 Dec, Fibromyalgia M79.7 ; Hypertension I10 and Arthritis M19.90 [facility] [place] [facility] [address], [place] [address]- 2773 Dec, [facility] [place] [facility] [address], [place] [address]- 0041 Dec, [facility] [place] [facility] [address], [place] [address]- 6461 Dec, [facility] [place] [facility] [address], [place] [address]- 8287 Dec, [facility] [place] [facility] [address], [place] [address]- 9088 Nov, [facility] [place] [facility] [address], [place] [address]- 0014 Nov, [facility] [place] [facility] [id number] [address]- 6480 Nov, [facility] [address] [id number], [place] [address] 4061 Nov, Hypertension I10 [facility] [place] [facility] [address] [id number] [place] [address] 2546 23 Oct, 2014 [facility] [address] [id number] [place] [address] 2546 17 Oct, 2014 [facility] [place] [facility] [address] [id number] [place] [address] 2540 04 Oct, 2014 [facility] [address] [id number] [place] [address]- 6609 Oct, 2014 [facility] [address] [id number] [place] [address]- 3933 Oct, [facility] [address] [facility] [id number], [place] [address]- 1172 Sep, [facility] [address] [id number], [place] [address]- 5026 Sep, [facility] [address] [facility] [id number], [place] [address]- 0099 Sep, Hip pain associated with recalled total hip arthroplasty hardware 996.77 [facility] [place] [facility] [address] [facility] [id number], [place] [address]- 8897 Sep, [facility] [place] [facility] [address] [facility] [id number], [place] [address]- 2540 Sep, [facility] [place] [facility] [address] [id number], [place] [address]- 2268 Sep, [facility] [place] [facility] [address] [facility] [id number], [place] [address]- 4887 Aug, [facility] [place] [facility] [address] [facility] [id number], [place] [address]- 5692 Jul, [facility] [place] [facility] [address] [id number] [place] [address]- 3701 June, [facility] [place] [facility] [address] [id number] [place] [address]- 0636 June, [facility] [place] [facility] [address] [id number] [place] [address]- 1234 June, [facility] [place] [facility] [address] [id number] [place] [address]- 9211 June, [facility] [place] [facility] [address] [id number] [place] [address]- 0475 June, [facility] [place] [facility] [address] [id number] [place] [address]- 9713 June, [facility] [place] [facility] [address] [id number] [place] [address]- 5874 May, [facility] [place] [facility] [address] [id number] [place] [address]- 1299 May, [facility] [place] [facility] [address] [id number] [place] [address]- 6657 May, [facility] [place] [facility] [address] [id number] [place] [address]- 3723 Apr, [facility] [place] [facility] [address] [id number] [place] [address]- 7751 Apr, [facility] [place] [facility] [address] [id number] [place] [address]- 0857 Apr, [facility] [place] [facility] [address] [id number] [place] [address]- 7020 Apr, [facility] [place] [facility] [address] [id number] [place] [address]- 2786 Apr, [facility] [place] [facility] [address] [id number] [place] [address]- 2558 Apr, [facility] [place] [facility] [address] [id number] [place] [address]- 0030 Apr, [facility] [place] [facility] [address] [id number] [place] [address]- 6438 Apr, [facility] [place] [facility] [address] [id number] [place] [address]- 1783 Apr, [facility] [place] [facility] [address] [id number] [place] [address]- 3298 Apr, [facility] [place] [facility] [address] [id number] [place] [address]- 2882 Apr, [facility] [place] [facility] [address] [id number] [place] [address]- 6869 Mar, [facility] [place] [facility] [address] [id number] [place] [address]- 7851 Mar, [facility] [place] [facility] [address] [id number] [place] [address]- 2784 Mar, [facility] [place] [facility] [address] [id number] [place] [address]- 6871 Mar, [facility] [place] [facility] [address] [id number] [place] [address]- 2379 Mar, [facility] [place] [facility] [address] [id number] [place] [address]- 2107 Mar, [facility] [place] [facility] [address] [id number] [place] [address]- 2442 Feb, [facility] [place] [facility] [address] [id number] [place] [address]- 2571 Feb, [facility] [place] [facility] [address] [id number] [place] [address]- 0204 Feb, [facility] [place] [facility] [address] [id number] [place] [address]- 2052 Feb, [facility] [place] [facility] [address] [id number] [place] [address]- 3297 Jan, [facility] [place] [facility] [address] [id number] [place] [address]- 5079 Jan, [facility] [place] [facility] [address] [id number] [place] [address]- 3121 Jan, [facility] [place] [facility] [address] [id number] [place] [address]- 6208 Jan, [facility] [place] [facility] [address] [id number] [place] [address]- 9122 Dec, [facility] [place] [facility] [address] [id number] [place] [address]- 9204 Dec, [facility] [place] [facility] [address] [id number] [place] [address]- 8884 Dec, [facility] [place] [facility] [address] [id number] [place] [address]- 1484 Dec, [facility] [place] [facility] [address] [id number] [place] [address]- 2267 Dec, [facility] [place] [facility] [address] [id number] [place] [address]- 1631 Dec, [facility] [place] [facility] [address] [id number] [place] [address]- 1940 Dec, [facility] [place] [facility] [address] [id number] [place] [address]- 4654 Dec, [facility] [place] [facility] [address] [id number] [place] [address]- 1301 Dec, [facility] [place] [facility] [address] [id number], [place] [address]- 9361 Dec, [facility] [place] [facility] [address] [id number] [place] [address]- 2877 Dec, [facility] [place] [facility] [address] [id number] [place] [address]- 0892 Nov, [facility] [place] [facility] [address] [id number], [place] [address]- 4837 Nov, [facility] [place] [facility] [address] [id number] [place] [address]- 5896 28 Nov, 2013 [facility] [place] [facility] [address] [id number] [place] [address]- 5219 17 Nov, 2013 [facility] [place] [facility] [address] [id number] [place] [address]- 8450 17 Nov, 2013 [facility] [place] [facility] [address] [id number] [place] [address]- 5841 15 Nov, 2013 [facility] [place] [facility] [address] [id number] [place] [address]- 3794 15 Nov, 2013 [facility] [place] [facility] [address] [id number] [place] [address]- 6732 15 Nov, 2013 [facility] [place] [facility] [address] [id number] [place] [address]- 6082 15 Nov, 2013 [facility] [place] [facility] [address] [id number] [place] [address]- 8050 14 Nov, 2013 [facility] [place] [facility] [address] [id number] [place] [address]- 7917 14 Nov, 2013 [facility] [place] [facility] [address] [id number] [place] [address]- 8336 14 Nov, 2013 [facility] [place] [facility] [address] [id number] [place] [address]- 3528 14 Nov, 2013 [facility] [place] [facility] [address] [id number] [place] [address]- 5181 13 Nov, 2013 [facility] [place] [facility] [address] [id number] [place] [address]- 5891 13 Nov, 2013 [facility] [place] [facility] [address] [id number] [place] [address]- 0192 11 Nov, 2013 [facility] [place] [facility] [address] [id number] [place] [address]- 8260 11 Nov, 2013 [facility] [place] [facility] [address] [id number] [place] [address]- 7771 07 Nov, 2013 [facility] [place] [facility] [address] [id number] [place] [address]- 2347 07 Nov, 2013 [facility] [place] [facility] [address] [id number] [place] [address]- 9493 07 Nov, 2013 [facility] [place] [facility] [address] [id number] [place] [address]- 1358 07 Nov, 2013 [facility] [place] [facility] [address] [id number] [place] [address]- 0326 30 Oct, 2013 [facility] [place] [facility] [address] [id number] [place] [address]- 2831 30 Sep, 2013 [facility] [place] [facility] [address] [id number] [place] [address]- 4590 26 Oct, 2013 [facility] [place] [facility] [address] [id number] [place] [address]- 7555 26 Oct, 2013 [facility] [place] [facility] [address] [id number], [place] [address]- 3446 22 Oct, 2013 [facility] [place] [facility] [address] [id number] [place] [address]- 2363 22 Oct, 2013 [facility] [place] [facility] [address] [id number] [place] [address]- 2491 18 Sep, 2013 [facility] [place] [facility] [address] [id number], [place] [address]- 2280 18 Sep, 2013 [facility] [place] [facility] [address] [id number], [place] [address]- 2545 18 Sep, 2013 [facility] [place] [facility] [address] [id number], [place] [address]- 2542 18 Sep, 2013 [facility] [place] [facility] [address] [id number], [place] [address]- 2291 12 Oct, 2013 [facility] [place] [facility] [address] [id number], [place] [address]- 2545 12 Oct, 2013 [facility] [place] [facility] [address] [id number] [place] [address]- 8946 Oct, [facility] [place] [facility] [address] [id number] [place] [address]- 4323 Oct, [facility] [place] [facility] [address] [id number] [place] [address]- 5954 Sep, [facility] [place] [facility] [address] [id number] [place] [address]- 7544 Sep, [facility] [place] [facility] [address] [id number] [place] [address]- 4592 Sep, [facility] [place] [facility] [address] [id number] [place] [address]- 4626 Sep, [facility] [place] [facility] [address] [id number] [place] [address]- 6412 Sep, [facility] [place] [facility] [address] [id number] [place] [address]- 4499 Sep, [facility] [place] [facility] [address] [id number] [place] [address]- 6134 Sep, [facility] [place] [facility] [address] [id number] [place] [address]- 5492 Sep, [facility] [place] [facility] [address] [id number] [place] [address]- 5504 Sep, [facility] [place] [facility] [address] [id number] [place] [address]- 1562 Sep, [facility] [place] [facility] [address] [id number] [place] [address]- 4170 Sep, [facility] [place] [facility] [address] [id number] [place] [address]- 5920 Sep, [facility] [place] [facility] [address] [id number] [place] [address]- 6663 Sep, [facility] [place] [facility] [address] [id number] [place] [address]- 9437 Sep, [facility] [place] [facility] [address] [id number] [place] [address]- 3833 Sep, [facility] [place] [facility] [address] [id number] [place] [address]- 3319 Sep, [facility] [place] [facility] [address] [id number] [place] [address]- 4627 Sep, [facility] [place] [facility] [address] [id number] [place] [address]- 1390 Sep, [facility] [place] [facility] [address] [id number] [place] [address]- 9681 Aug, [facility] [place] [facility] [address] [id number] [place] [address]- 4301 Aug, [facility] [place] [facility] [address] [id number] [place] [address]- 3791 Aug, [facility] [place] [facility] [address] [id number] [place] [address]- 3710 Aug, [facility] [place] [facility] [address] [id number] [place] [address]- 5823 Aug, [facility] [place] [facility] [address] [id number] [place] [address]- 9774 Aug, [facility] [place] [facility] [address] [id number] [place] [address]- 7846 Jul, [facility] [place] [facility] [address] [id number] [place] [address]- 1383 Jul, [facility] [place] [facility] [address] [id number] [place] [address]- 7123 Jul, [facility] [place] [facility] [address] [id number] [place] [address]- 0925 Jul, [facility] [place] [facility] [address] [id number] [place] [address]- 5711 June, [facility] [place] [facility] [address] [id number] [place] [address]- 2375 June, [facility] [place] [facility] [address] [id number] [place] [address]- 2823 June, [facility] [place] [facility] [address] [id number] [place] [address]- 9114 June, [facility] [place] [facility] [address] [id number] [place] [address]- 3664 June, [facility] [place] [facility] [address] [id number] [place] [address]- 1724 June, [facility] [place] [facility] [address] [id number] [place] [address]- 1788 June, [facility] [place] [facility] [address] [id number] [place] [address]- 5671 May, [facility] [place] [facility] [address] [id number] [place] [address]- 3129 May, [facility] [place] [facility] [address] [id number] [place] [address]- 3863 May, [facility] [place] [facility] [address] [id number] [place] [address]- 8027 May, [facility] [place] [facility] [address] [id number] [place] [address]- 2532 May, [facility] [place] [facility] [address] [id number] [place] [address]- 0931 May, [facility] [place] [facility] [address] [id number] [place] [address]- 1924 Apr, [facility] [place] [facility] [address] [id number] [place] [address]- 4805 Apr, [facility] [place] [facility] [address] [id number] [place] [address]- 1434 Apr, [facility] [place] [facility] [address] [id number] [place] [address]- 8369 Apr, [facility] [place] [facility] [address] [id number] [place] [address]- 9963 14 Apr, 2013 [facility] [place] [facility] [address] [id number] [place] [address]- 5945 14 Apr, 2013 [facility] [place] [facility] [address] [id number] [place] [address]- 3472 12 Apr, 2013 [facility] [place] [facility] [address] [id number] [place] [address]- 9471 12 Apr, 2013 [facility] [place] [facility] [address] [id number] [place] [address]- 1068 10 Apr, 2013 [facility] [place] [facility] [address] [id number] [place] [address]- 3322 10 Apr, 2013 [facility] [place] [facility] [address] [id number] [place] [address]- 6565 04 Apr, 2013 [facility] [place] [facility] [address] [id number] [place] [address]- 8342 04 Apr, 2013 [facility] [place] [facility] [address] [id number] [place] [address]- 2209 03 Apr, 2013 [facility] [place] [facility] [address] [id number] [place] [address]- 4986 Apr, [facility] [place] [facility] [address] [id number] [place] [address]- 3913 Mar, [facility] [place] [facility] [address] [id number] [place] [address]- 6414 Mar, [facility] [place] [facility] [address] [id number] [place] [address]- 4415 05 Mar, 2013 [facility] [place] [facility] [address] [id number] [place] [address]- 3338 Feb, [facility] [place] [facility] [address] [id number] [place] [address]- 6624 Feb, [facility] [place] [facility] [address] [id number] [place] [address]- 9676 Feb, [facility] [address] [id number] [place] [address]- 4103 Feb, [facility] [place] [facility] [address] [id number] [place] [address]- 9421 Feb, [facility] [place] [facility] [address] [id number] [place] [address]- 1489 Feb, [facility] [place] [facility] [address] [id number] [place] [address]- 5500 Feb, [facility] [address] [id number] [place] [address]- 2153 Feb, [facility] [place] [facility] [address] [id number] [place] [address]- 8216 Feb, [facility] [place] [facility] [address] [id number] [place] [address]- 9837 Feb, [facility] [place] [facility] [address] [id number] [place] [address]- 8633 Jan, [facility] [place] [facility] [address] [id number] [place] [address]- 8055 Jan, [facility] [place] [facility] [address] [id number] [place] [address]- 1462 Jan, [facility] [place] [facility] [address] [id number], [place] [address]- 3246 Jan, [facility] [place] [facility] [address] [id number], [place] [address]- 4171 Jan, [facility] [place] [facility] [address] [id number] [place] [address]- 5509 Jan, [facility] [place] [facility] [address] [id number] [place] [address]- 1854 Jan, [facility] [place] [facility] [address] [id number] [place] [address]- 4376 Jan, [facility] [place] [facility] [address] [id number] [place] [address]- 4719 19 Jan, 2012 [facility] [address] [id number] [place] [address]- 8259 19 Jan, 2012 [facility] [place] [facility] [address] [id number] [place] [address] 17 Jan, 2012 [facility] [address] [id number] [place] [address] 17 Jan, 2012 [facility] [place] [facility] [address] [id number] [place] [address] 16 Jan, 2012 [facility] [address] [id number] [place] [address] Jan, 2012 [facility] [address] [id number] [place] [address] Jan, [facility] [address] [facility] [id number] [place] [address] Jan, [facility] [address] [id number] [place] [address]267 Jan, [facility] [place] [facility] [address] [id number] [place] [address] 05 Jan, 2013 [facility] [address] [facility] [id number] [place] [address] [address] 05 Jan, 2013 [facility] [place] [facility] [address] [id number] [place] [address] 05 Jan, 2013 [facility] [place] [facility] [address] [id number] [place] [address]99 Jan, [facility] [place] [facility] [address] [id number] [place] [address] Dec, [facility] [place] [facility] [address] [facility] [id number] [place] [address] Dec, [facility] [address] [facility] [id number] [place] [address] Dec, [facility] [place] [facility] [address] [id number] [place] [address] Dec, [facility] [place] [facility] [address] [id number] [place] [address] Dec, [facility] [place] [facility] [address] [id number] [place] [address] Dec, [facility] [place] [facility] [address] [id number] [place] [address]227 Dec, [facility] [place] [facility] [address] [id number] [place] [address] Dec, [facility] [place] [facility] [address] [id number] [place] [address] 9430 Dec, [facility] [place] [facility] [address] [id number] [place] [address] Dec, [facility] [place] [facility] [address] [id number] [place] [address] Nov, [facility] [place] [facility] [address] [id number] [place] [address] 6842 Nov, [facility] [place] [facility] [address] [id number] [place] [address]- [address]645 Nov, [facility] [place] [facility] [address] [id number] [place] [address] 5673 Nov, [facility] [place] [facility] [address] [id number], [place] [address] Nov, [facility] [place] [facility] [address] [id number] [place] [address]- 1423 Nov, [facility] [place] [facility] [address] [id number] [place] [address] 9748 Nov, [facility] [place] [facility] [address] [id number], [place] [address] Nov, [facility] [place] [facility] [address] [id number], [place] [address] Nov, [facility] [place] [facility] [address] [id number] [place] [address] Nov, [facility] [place] [facility] [address] [id number] [place] [address] 9796 Oct, [facility] [place] [facility] [address] [id number] [place] [address] 2546 Oct, [facility] [place] [facility] [address] [id number] [place] [address] 2545 Oct, [facility] [place] [facility] [address] [id number] [place] [address]- 2014 Oct, [facility] [place] [facility] [address] [id number] [place] [address]293 Oct, [facility] [place] [facility] [address] [id number] [place] [address]- [address]243 Sep, [facility] [place] [facility] [address] [id number] [place] [address]- 9588 Sep, [facility] [place] [facility] [address] [id number] [place] [address] 0374 Aug, [facility] [place] [facility] [address] [id number] [place] [address] Aug, [facility] [place] [facility] [address] [id number] [place] [address] 9362 Aug, [facility] [place] [facility] [address] [id number] [place] [address] 6720 Aug, [facility] [place] [facility] [address] [id number] [place] [address]- 4369 Aug, [facility] [place] [facility] [address] [id number] [place] [address]- 0876 Aug, [facility] [place] [facility] [address] [id number] [place] [address] 2933 Aug, [facility] [place] [facility] [address] [id number] [place] [address] Jul, [facility] [address] [id number] [place] [address] Jul, [facility] [address] [id number] [place] [address] June, [facility] [address] [id number] [place] [address] June, [facility] [address] [id number] [place] [address] 7965 June, [facility] [address] [id number] [place] [address] June, [facility] [address] [id number] [place] [address] 9561 June, [facility] [address] [id number] [place] [address] 4037 June, [facility] [place] [facility] [address] [id number] [place] [address] June, [facility] [place] [facility] [address] [id number] [place] [address] June, [facility] [address] [id number] [place] [address] 1366 June, [facility] [address] [id number] [place] [address] 68[address] June, [facility] [address] [id number] [place] [address] 9834 June, [facility] [address] [id number] [place] [address] 1138 May, [facility] [address] [id number] [place] [address] 8996 May, [facility] [address] [id number] [place] [address]- 3584 May, [facility] [address] [id number] [place] [address]- 0852 May, [facility] [address] [id number] [place] [address]- 0189 Apr, [facility] [address] [id number] [place] [address]- 6979 Apr, [facility] [address] [id number] [place] [address]- 2536 Apr, [facility] [address] [id number] [place] [address]- 7052 Mar, [facility] [facility] [address] [id number] [place] [address] Mar, [facility] [address] [id number] [place] [address] Feb, [facility] [address] [id number] [place] [address] Feb, [facility] [address] [id number] [place] [address] Feb, [facility] [address] [id number] [place] [address] 58[address] Feb, [facility] [address] [id number] [place] [address] Feb, [facility] [address] [id number], [place] [address] 14 Feb, 2012 [facility] [place] [facility] [address] [id number] [place] [address] Feb, [facility] [place] [facility] [address] [id number] [place] [address] Jan, [facility] [place] [facility] [address] [id number] [place] [address] Jan, [facility] [place] [facility] [address] [id number] [place] [address] 69[address] 28 Jan, 2012 [facility] [place] [facility] [address] [id number] [place] [address] 17 Jan, 2012 [facility] [place] [facility] [address] [id number] [place] [address] 17 Jan, 2012 [facility] [place] [facility] [address] [id number] [place] [address] 2006 Jan, [facility] [place] [facility] [address] [id number] [place] [address] 2579 Jan, [facility] [place] [facility] [address] [id number] [place] [address] 69[address] Jan, [facility] [place] [facility] [address] [id number] [place] [address] Jan, [facility] [place] [facility] [address] [id number] [place] [address]- 4087 Jan, [facility] [place] [facility] [address] [id number] [place] [address]- 5[address] Jan, [facility] [place] [facility] [address] [id number] [place] [address] 6693 Dec, [facility] [place] [facility] [address] [facility] [id number] [place] [address]70 Dec, [facility] [place] [facility] [address] [id number] [place] [address]- 0191 Dec, [facility] [place] [facility] [address] [id number] [place] [address] 7952 Dec, [facility] [place] [facility] [address] [id number] [place] [address]- 0722 Nov, [facility] [place] [facility] [address] [id number] [place] [address]- 6939 Nov, [facility] [place] [facility] [address] [facility] [id number] [place] [address]- 2866 Nov, [facility] [place] [facility] [address] [id number] [place] [address] 2540 27 Oct, 2011 [facility] [place] [facility] [address] [id number] [place] [address] 2546 24 Oct, 2011 [facility] [place] [facility] [address] [id number] [place] [address] 2546 21 Oct, 2011 [facility] [place] [facility] [address] [id number] [place] [address] 2546 10 Oct, 2011 [facility] [place] [facility] [address] [id number] [place] [address] 2546 07 Oct, 2011 [facility] [place] [facility] [address] [id number] [place] [address]- 8486 04 Oct, 2011 [facility] [place] [facility] [address] [id number] [place] [address]- 0918 04 Oct, 2011 [facility] [place] [facility] [address] [id number] [place] [address]- 8111 29 Sep, 2011 [facility] [place] [facility] [address] [id number] [place] [address]- 9290 Sep, [facility] [place] [facility] [address] [id number] [place] [address] 4260 Sep, [facility] [place] [facility] [address] [id number] [place] [address] 7169 Sep, [facility] [place] [facility] [address] [id number] [place] [address]- 2715 Sep, [facility] [place] [facility] [address] [id number] [place] [address] 9636 30 Aug, 2011 [facility] [place] [facility] [address] [id number] [place] [address] 2546 Aug, [facility] [place] [facility] [address] [id number] [place] [address] 2546 17 Aug, 2011 [facility] [place] [facility] [address] [id number] [place] [address]- 2356 16 Aug, 2011 [facility] [place] [facility] [address] [id number] [place] [address]- [address]235 13 Aug, 2011 [facility] [place] [facility] [address] [id number] [place] [address]- 1371 Aug, [facility] [place] [facility] [address] [id number] [place] [address] 4127 Aug, [facility] [place] [facility] [address] [id number] [place] [address]- 7441 Jul, [facility] [place] [facility] [address] [id number] [place] [address] 1251 Jul, [facility] [place] [facility] [address] [id number] [place] [address]- 8582 Jul, [facility] [place] [facility] [address] [id number] [place] [address]- 9455 Jul, [facility] [place] [facility] [address] [id number] [place] [address]- 2359 Jul, [facility] [place] [facility] [address] [id number] [place] [address]- 9176 Jul, [facility] [place] [facility] [address] [id number] [place] [address]- 8001 Jul, [facility] [place] [facility] [address] [id number] [place] [address]- 6133 Jul, [facility] [place] [facility] [address] [id number] [place] [address]- 7206 Jul, [facility] [place] [facility] [address] [id number] [place] [address]- 8158 June, [facility] [place] [facility] [address] [id number] [place] [address]- 3179 June, [facility] [place] [facility] [address] [id number] [place] [address]- 1388 June, [facility] [place] [facility] [address] [id number] [place] [address] 7927 June, [facility] [address] [id number] [place] [address] 2404 June, [facility] [address] [id number] [place] [address] 9136 June, [facility] [address] [id number] [place] [address]- 1421 June, [facility] [address] [id number] [place] [address] 2090 June, [facility] [address] [id number] [place] [address]- 8898 25 May, 2011 [facility] [address] [id number] [place] [address]- 6898 23 May, 2011 [facility] [address] [id number] [place] [address]- 0044 May, [facility] [address] [id number] [place] [address]- 4944 19 May, 2011 [facility] [address] [id number] [place] [address]- 8973 [address], [address] [facility] [address] [id number] [place] [address]- 9675 16 May, 2011 [facility] [address] [id number] [place] [address]- 8541 May, [facility] [address] [id number] [place] [address]- 6779 27 Apr, 2011 [facility] [address] [id number] [place] [address]- 6871 22 Apr, 2011 [facility] [address] [id number] [place] [address]- 7910 Apr, [facility] [address] [id number] [place] [address]- 9397 Apr, [facility] [address] [id number] [place] [address]- 4388 Apr, [facility] [place] [facility] [address] [id number] [place] [address]- 6826 Apr, [facility] [place] [facility] [address] [id number] [place] [address]- 2226 Apr, [facility] [place] [facility] [address] [id number] [place] [address]- 3356 Mar, [facility] [place] [facility] [address] [id number] [place] [address]- 2073 Mar, [facility] [place] [facility] [address] [id number] [place] [address]- 0656 14 Mar, 2011 [facility] [place] [facility] [address] [id number] [place] [address]- 3716 Mar, [facility] [place] [facility] [address] [id number] [place] [address]- 6347 Mar, [facility] [place] [facility] [address] [id number] [place] [address]- 9647 Mar, [facility] [place] [facility] [address] [id number] [place] [address]- 7537 Mar, [facility] [place] [facility] [address] [id number] [place] [address]- 6720 Feb, [facility] [place] [facility] [address] [id number] [place] [address]- 8917 Feb, [facility] [place] [facility] [address] [id number] [place] [address]- 3276 Feb, [facility] [place] [facility] [address] [id number] [place] [address]- 7388 Feb, [facility] [place] [facility] [address] [id number] [place] [address]- 7575 Feb, [facility] [place] [facility] [address] [id number] [place] [address]- 0282 Feb, [facility] [address] [id number] [place] [address]- 2516 Feb, [facility] [address] [id number] [place] [address] 2546 Feb, [facility] [address] [id number] [place] [address]- 7966 Feb, [facility] [address] [id number] [place] [address] 2544 Feb, [facility] [address] [id number] [place] [address]- 3132 Jan, [facility] [address] [id number] [place] [address]- 6106 Jan, [facility] [address] [id number] [place] [address]- 0034 Jan, [facility] [address] [id number] [place] [address]- 0406 Jan, [facility] [address] [id number] [place] [address]- 5092 Jan, [facility] [address] [id number] [place] [address]- 5560 Jan, [facility] [address] [id number] [place] [address] 2546 Jan, [facility] [address] [id number] [place] [address]- 2545 Jan, [facility] [place] [facility] [address] [id number] [place] [address] 2543 Jan, [facility] [place] [facility] [address] [id number] [place] [address]- 2546 Jan, [facility] [address] [id number] [place] [address]- 1018 Jan, [facility] [place] [facility] [address] [id number] [place] [address]- 8507 Dec, [facility] [place] [facility] [address] [id number] [place] [address]- 6504 Dec, [facility] [place] [facility] [address] [id number] [place] [address]- 6668 Dec, [facility] [place] [facility] [address] [id number] [place] [address]- 6341 16 Dec, 2010 [facility] [place] [facility] [address] [id number] [place] [address]- 6344 14 Dec, 2010 [facility] [place] [facility] [address] [id number] [place] [address]- 7525 Dec, [facility] [place] [facility] [address] [id number] [place] [address]- 9427 Dec, [facility] [place] [facility] [address] [id number] [place] [address]- 9272 Dec, [facility] [place] [facility] [address] [id number] [place] [address]- 2135 Dec, [facility] [place] [facility] [address] [id number] [place] [address]- 2845 Nov, [facility] [place] [facility] [address] [id number] [place] [address]- 3762 Nov, [facility] [place] [facility] [address] [id number], [place] [address]- 4766 Nov, [facility] [place] [facility] [address] [id number] [place] [address]- 4997 Nov, [facility] [place] [facility] [address] [id number] [place] [address]- 4541 24 Nov, 2010 [facility] [place] [facility] [address] [id number] [place] [address]- 8516 13 Nov, 2010 [facility] [place] [facility] [address] [id number], [place] [address]- 2456 Aug, [facility] [place] [facility] [address] [facility] [id number], [place] [address]- 2850 Feb, [facility] [place] [facility] [address] [facility] [id number][place] [address]8 Jan, [facility] [place] [facility] [address] [facility] [id number], [place] [address]- 4541 Jan, [facility] [place] [facility] [address] [facility] [id number], [place] [address]- 3959 Jan, [facility] [place] [facility] [address] [facility] [id number], [place] [address]- 9031 Jan, [facility] [place] [facility] [address] [facility] [id number], [place] [address]- 0820 Jan, [facility] [place] [facility] [id number], [place] [address]- 1044 Dec, [facility] [place] [facility] [id number], [place] [address]- 3179 Dec, [facility] [place] [facility] [id number], [place] [address]- 4343 Dec, [facility] [place] [facility] [id number], [place] [address]- 9687 Dec, [facility] [place] [facility] [address] [id number], [place] [address]- 5082 Nov, [facility] [place] [facility] [id number], [place] [address]- 6077 Nov, [facility] [place] [facility] [address] [id number], [place] [address]- 1094 Nov, IMMUNIZATIONS No Known Immunizations SOCIAL HISTORY [...]
--- OUTSIDE RECORDS SUMMARY | 2018-01-13 21:20 | XMS REPORT ---
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 Active 56567719 Problem Unspecified episodic mood disorder F39 Active 45362351 Problem Hypertension I10 Active 58632933 Problem Venous insufficiency (chronic) (peripheral) I87.2 Active 839527541 Problem Gastroesophageal reflux disease, esophagitis presence not specified K21.9 Active 559165884 Problem Other chronic pain G89.29 Active 41360957 Problem Chronic hepatitis C without hepatic coma B18.2 Active 847588180 Problem Other psychoactive substance dependence, uncomplicated F19.20 Active 2233981 Problem 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, 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 [facility] [id number] [place] [address] 65900- 1877 Apr, [facility] [id number] [place] [address] 39586- 6541 Apr, Arthritis M19.90 and Unspecified episodic mood disorder F39 [facility] [id number] [place] [address] 14097- 5180 Apr, Unspecified episodic mood disorder F39 [facility] [id number] [place] [address] 36765- 8706 Apr, [facility] [id number] [place] [address] 85766- 8974 Apr, [facility] [id number] [place] [address] 61493- 7570 Apr, Unspecified episodic mood disorder F39 ; Combined drug dependence excluding opioids, 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 ; Anxiety F41.9 ; Other psychoactive substance dependence, uncomplicated F19.20 and 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 [facility] [id number] [place] [address] 23698- 9417 Mar, Unspecified episodic mood disorder F39 [facility] [id number] [place] [address] 91381- 6536 Mar, Gastroesophageal reflux disease, esophagitis presence not specified K21.9 [facility] [id number] [place] [address] 16041- 1298 Mar, Arthritis M19.90 and Unspecified episodic mood disorder F39 [facility] [id number] [place] [address] 17325- 9346 Feb, [facility] [id number] [place] [address] 96381 2546 Feb, [facility] [id number] [place] [address] 70527- 7816 Feb, [facility] [id number] [place] [address] 03890 2549 Feb, Arthritis M19.90 [facility] [id number] [place] [address] 11618- 6476 Feb, Non-pressure chronic ulcer of right calf, 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 ; Unspecified episodic mood disorder F39 and Left hip pain M25.552 [place] [facility] [id number] [place] [address] 48749- 6880 Feb, [facility] [id number] [place] [address] 88625- 0038 Feb, [facility] [id number] [place] [address] 38518- 2540 Jan, Arthritis M19.90 [place] [facility] [id number] [place] [address] 75356- 5923 Jan, Left hip pain M25.552 and Non-pressure chronic ulcer of right calf, 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 [place] [id number] [place] [address] 10729- 4953 Jan, Chronic hepatitis C without hepatic coma B18.2 [place] [facility] [id number] [place] [address] 03092- 0142 Jan, Encounter for immunization Z23 ; Venous insufficiency ( chronic) (peripheral) I87.2 ; Non-pressure chronic ulcer of unspecified calf limited to breakdown of skin L97.201 and Gastroesophageal reflux disease, esophagitis presence not specified K21.9 [place] [address], [place] [address] 17[address] Jan, [facility] [id number] [place] [address] 84641- 9592 Jan, Chronic hepatitis C without hepatic coma B18.2 and Encounter for immunization Z23 [facility] [id number] [place] [address] 72972- 6984 Jan, Arthritis M19.90 [facility] [id number] [place] [address] 65976- 1834 Jan, [facility] [id number] [place] [address] 77728- 4075 Dec, [facility] [id number] [place] [address] 26643- 7527 Dec, Unspecified episodic mood disorder F39 [facility] [id number] [place] [address] 37275- 0667 Dec, Arthritis M19.90 [facility] [id number] [place] [address] 49687- 7018 Dec, Arthritis M19.90 [facility] [id number] [place] [address] 23661- 0539 Nov, [facility] [id number] [place] [address] 81635- 5751 Nov, [facility] [id number] [place] [address] 08223- 7215 Nov, Other psychoactive substance dependence, uncomplicated F19.20 ; 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 [address], [place] [address] Oct, Partial thickness burn of abdomen, initial encounter T21.22XA [facility] [id number] [place] [address] 49626- 6832 Oct, [facility] [id number] [place] [address] 91380- 4206 Sep, Arthritis M19.90 [facility] [id number] [place] [address] 29071- 0566 Sep, [facility] [id number] [place] [address] 31255- 0462 Sep, [facility] [id number] [place] [address] 46150- 7682 Sep, Unspecified episodic mood disorder F39 ; Chronic hepatitis C without hepatic coma B18.2 and Left hip pain M25.552 [facility] [id number] [place] [address] 61673- 3579 Sep, Arthritis M19.90 and Left hip pain M25.552 [facility] [id number] [place] [address] 91647- 8155 Aug, [facility] [id number] [place] [address] 91217- 3145 Aug, [facility] [id number] [place] [address] 95671- 7192 Aug, Chronic hepatitis C without hepatic coma B18.2 [facility] [id number] [place] [address] 53113- 3538 Aug, [facility] [id number] [place] [address] 55303- 8611 Aug, Chronic hepatitis C without hepatic coma B18.2 [facility] [id number] [place] [address] 20982- 5233 Aug, 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, 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 [facility] [id number] [place] [address] 90184- 1491 Aug, [facility] [id number] [place] [address] 42721- 3892 Aug, Chronic hepatitis C without hepatic coma B18.2 and Hypertension I10 [facility] [id number] [place] [address] 31473- 0538 Jul, [facility] [address] 59670- 3029 June, [facility] [address] 08478- 3657 Apr, Fibromyalgia M79.7 ; Left hip pain M25.552 and Decubitus ulcer of sacral region, stage 1 L89.151 [facility] [id number] [place] [address] 22227- 7999 Apr, [facility] [address] 90414- 4927 Apr, [facility] [id number] [place] [address] 09761- 1247 Feb, [facility] [id number] [place] [address] 60295- 2878 Dec, Anxiety F41.9 ; Combined drug dependence excluding opioids, 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 and Unspecified episodic mood disorder F39 [facility] [id number] [place] [address] 05604- 8029 Dec, [facility] [id number] [place] [address] 10437- 4515 Nov, [facility] [id number] [place] [address] 47338- 2494 Nov, [facility] [id number] [place] [address] 68623- 6304 Nov, 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 and Anxiety F41.9 [facility] [address] 69772- 9771 Oct, [facility] [address], [place] [address] Oct, Open wound of left thigh, initial encounter S71.102A [facility] [id number] [place] [address] 41026- 5893 Oct, [facility] [id number] [place] [address] 27154- 7751 Sep, Unspecified episodic mood disorder F39 ; Other disorder of impulse control 312.39 ; Combined drug dependence excluding opioids, 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 and Anxiety F41.9 [facility] [id number] [place] [address] 54357- 5570 Sep, Other disorder of impulse control 312.39 ; Combined drug dependence excluding opioids, 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 ; Anxiety F41.9 and Unspecified episodic mood disorder F39 [facility] [id number] [place] [address] 75145- 1059 Sep, Other chronic pain G89.29 [facility] [id number] [place] [address] 86913- 9519 Sep, [facility] [id number] [place] [address] 25499- 5614 Sep, [facility] [address], [place] [address]- 6274 Aug, [facility] [id number] [place] [address] 92959- 7785 Aug, [facility] [id number] [place] [address] 19668- 2780 Aug, [facility] [id number] [place] [address] 85287- 8444 Jul, [facility] [id number] [place] [address] 07959- 8645 Jul, [facility] [id number] [place] [address] 62963- 1933 Jul, [facility] [id number] [place] [address] 66699- 1843 Jul, Arthritis M19.90 ; Chronic hepatitis C without hepatic coma B18.2 and Left hip pain M25.552 [facility] [id number] [place] [address] 21867- 7474 Jul, Left knee pain M25.562 [facility] [id number] [place] [address] 01730- 3261 Jul, Combined drug dependence excluding opioids, 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 ; Anxiety F41.9 ; Other disorder of impulse control 312.39 and Unspecified episodic mood disorder F39 [facility] [id number] [place] [address] 94331- 9895 Jul, Left knee pain M25.562 [place] [id number] [place] [address] 16562- 1899 Jul, Left knee pain M25.562 and Left hip pain M25.552 [place] [id number] [place] [address] 03681- 3714 Jul, [facility] [id number] [place] [address] 34284- 0454 June, [facility] [id number] [place] [address] 35692- 2228 June, Combinations of drug dependence excluding opioid type drug, unspecified abuse 304.80 ; Other disorder of impulse control 312.39 ; Unspecified episodic mood disorder F39 and Anxiety F41.9 [facility] [id number] [place] [address] 32992- 9817 June, Other fatigue R53.83 ; Headache R51 and Left knee pain M25.562 [facility] [id number] [place] [address] 18253- 8712 June, Unspecified episodic mood disorder F39 ; Combinations of drug dependence excluding opioid type drug, unspecified abuse 304.80 ; Other disorder of impulse control 312.39 and Anxiety F41.9 [facility] [id number] [place] [address] 56987- 9298 June, Anxiety F41.9 [facility] [id number] [place] [address] 01361- 6382 June, Pain in left knee M25.562 [facility] [id number] [place] [address] 84984- 7356 June, Anxiety F41.9 and Combinations of drug dependence excluding opioid type drug, unspecified abuse 304.80 [facility] [id number] [place] [address] 73692- 4805 June, Unspecified episodic mood disorder 296.90 ; Combinations of drug dependence excluding opioid type drug, unspecified abuse 304.80 and Other disorder of impulse control 312.39 [facility] [id number] [place] [address] 82664- 2679 June, Anxiety F41.9 and Unspecified episodic mood disorder 296.90 [facility] [id number] [place] [address] 01216- 9260 May, Arthritis M19.90 [facility] [id number] [place] [address] 53567- 0664 May, Arthritis M19.90 [facility] [address] [place] [address] 18365- 6375 May, Anxiety F41.9 ; Combinations of drug dependence excluding opioid type drug, unspecified abuse 304.80 and Other disorder of impulse control 312.39 [facility] [address] [place] [address] 24631- 0876 May, Left knee pain M25.562 [facility] [id number] [place] [address] 19708- 0782 May, Arthritis M19.90 [facility] [id number] [place] [address] 03314- 5802 May, [facility] [address] [place] [address] 55138- 7988 May, Anxiety F41.9 ; Unspecified episodic mood disorder 296.90 ; Combinations of drug dependence excluding opioid type drug, unspecified abuse 304.80 and Other disorder of impulse control 312.39 [place] [address] [place] [address] 18095- 9290 May, Left knee pain M25.562 [place] [id number] [place] [address] 73787- 1502 May, Left knee pain M25.562 ; Combinations of drug dependence excluding opioid type drug, unspecified abuse 304.80 ; Other disorder of impulse control 312.39 ; Fibromyalgia M79.7 ; Hypertension I10 ; Unspecified episodic mood disorder 296.90 and Left hip pain M25.552 [place] [id number] [place] [address] 33856- 2669 May, Unspecified episodic mood disorder 296.90 ; Other disorder of impulse control 312.39 ; Combinations of drug dependence excluding opioid type drug, unspecified abuse 304.80 and Anxiety F41.9 [place] [address] [place] [address] 44017- 4969 May, Left knee pain M25.562 ; Combinations of drug dependence excluding opioid type drug, unspecified abuse 304.80 ; Other disorder of impulse control 312.39 ; Fibromyalgia M79.7 ; Hypertension I10 ; Unspecified episodic mood disorder 296.90 and Left hip pain M25.552 [place] [id number] [place] [address] 19527- 6965 May, Anxiety F41.9 ; Unspecified episodic mood disorder 296.90 ; Other disorder of impulse control 312.39 and Combinations of drug dependence excluding opioid type drug, unspecified abuse 304.80 [place] [address], [place] [address]- 6990 Apr, 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 and 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, implants and grafts, initial encounter T84.82XA [facility] [address], [place] [address]- 9965 28 Apr, 2015 Anxiety F41.9 ; Unspecified episodic mood disorder 296.90 ; Combinations of drug dependence excluding opioid type drug, unspecified abuse 304.80 and Other disorder of impulse control 312.39 [facility] [id number] [place] [address] 23884- 0292 25 Apr, 2015 Arthritis M19.90 [facility] [id number] [place] [address] 64368- 1758 Apr, Anxiety F41.9 ; Unspecified episodic mood disorder 296.90 ; Combinations of drug dependence excluding opioid type drug, unspecified abuse 304.80 and Other disorder of impulse control 312.39 [facility] [id number] [place] [address] 60228- 0075 17 Apr, 2015 Arthritis M19.90 [facility] [id number] [place] [address] 53385- 4511 15 Apr, 2015 [facility] [id number] [place] [address] 34355- 7206 15 Apr, 2015 [facility] [id number] [place] [address] 93004- 0758 14 Apr, 2015 Unspecified episodic mood disorder 296.90 ; Combinations of drug dependence excluding opioid type drug, unspecified abuse 304.80 ; Other disorder of impulse control 312.39 and Anxiety F41.9 [facility] [id number] [place] [address] 44031 -7117 11 Apr, 2015 Left knee pain M25.562 [facility] [id number] [place] [address] 45073- 9778 Apr, [facility] [id number] [place] [address] 23904- 8197 29 Mar, 2015 Unspecified episodic mood disorder 296.90 ; Anxiety F41.9 ; Other disorder of impulse control 312.39 and Combinations of drug dependence excluding opioid type drug, unspecified abuse 304.80 [place] [address] [place] [address] 19456- 9368 Mar, Hyperpigmentation L81.9 [place] [id number] [place] [address] 567290- 0155 Mar, Arthritis M19.90 and Anxiety F41.9 [place] [address]8685- 9583 Mar, Unspecified episodic mood disorder F39 ; Combined drug dependence excluding opioids, 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 ; Other disorder of impulse control F63.89 and Anxiety F41.9 [place] [address] 16976- 2229 12 Mar, 2015 Well woman exam Z01.419 ; Other fatigue R53.83 ; Hot flashes N95.1 ; Depression, unspecified depression type F32.9 and Body mass index (BMI) of 23.0-23.9 in adult Z68.23 [place] [id number] [place] [address] 97559- 2538 11 Mar, 2015 Unspecified episodic mood disorder 296.90 ; Other disorder of impulse control 312.39 and Anxiety F41.9 [place] [id number] [place] [address] 35341- 9384 11 Mar, 2015 Well woman exam Z01.419 [...] of breast Z12.39 and Limited mobility Z74.09 [facility] [id number] [place] [address] 36863- 3015 Mar, [facility] [id number] [place] [address] 88133- 1544 Mar, [facility] [id number] [place] [address] 45677- 8391 Mar, [place] [id number] [place] [address] 57750- 5236 Mar, Other specified complication of internal orthopedic prosthetic devices, implants and grafts, initial encounter T84.89XA ; Fibromyalgia M79.7 ; Hypertension I10 ; Anemia D64.9 ; Insomnia G47.00 ; Anxiety F41.9 ; Arthritis M19.90 and Migraine G43.909 [place] [id number] [place] [address] 20632- 9468 Mar, [facility] [id number] [place] [address] 07246- 1689 Feb, [place] [id number] [place] [address] 36870- 7948 Feb, Arthritis M19.90 and Anxiety F41.9 [place] [id number] [place] [address] 57535- 7428 Feb, [place] [id number] [place] [address] 76423- 4751 Feb, [facility] [id number] [place] [address] 91486- 4333 Feb, [facility] [id number] [place] [address] 81106- 6385 Feb, [facility] [id number] [place] [address] 81401- 0901 Feb, Anxiety F41.9 [place] [id number] [place] [address] 13915- 8872 Feb, [facility] [id number] [address] 9[address] Feb, [facility] [id number] [place] [address] 12479- 3474 Feb, 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 and Fibromyalgia M79.7 [facility] [id number] [place] [address] 55241- 9212 Feb, [facility] [address] [facility] [id number] [place] [address] 10842- 4068 Jan, [facility] [id number] [place] [address] 86477- 4631 Jan, [facility] [id number] [place] [address] 9086 Jan, [facility] [id number] [place] [address] 05030- 2993 Jan, [facility] [id number] [place] [address] 6537 Jan, [facility] [id number] [place] [address] 13340- 8135 Jan, [facility] [id number] [place] [address] Jan, [facility] [id number], [place] [address] Jan, [facility] [address] [id number], [place] [address] 8[address] Dec, [facility] [id number] [place] [address]7974- 7497 Dec, Left knee pain M25.562 [facility] [id number], [place] [address] 3754 Dec, Left knee pain M25.562 [facility] [id number] [place] [address] 90071- 3845 16 Dec, 2014 Fibromyalgia M79.7 ; Hypertension I10 and Arthritis M19.90 [facility] [id number] [place] [address], [place] [address]- 6917 Dec, [facility] [id number] [place] [address] 05474- 3353 Dec, [facility] [address] [address]- 9072 Dec, [facility] [id number] [place] [address] 69434- 4796 Dec, [facility] [id number] [place] [address] 11187- 9699 Nov, [facility] [id number] [place] [address] 44869- 9680 Nov, [facility] [id number] [place] [address] 38301- 5145 Nov, [facility] [id number] [place] [address] 28110- 0966 Nov, Hypertension I10 [facility] [id number] [place] [address] 91179- 4677 23 Oct, 2014 [facility] [id number] [place] [address] 60605- 5247 17 Sep, 2014 [facility] [id number] [place] [address] 37715- 5925 04 Sep, 2014 [facility] [id number] [place] [address] 22236- 1487 04 Sep, 2014 [facility] [id number] [place] [address] 96877- 0834 03 Sep, 2014 [facility] [id number] [place] [address] 71975- 0984 Sep, [facility] [id number] [place] [address] 07231- 0702 Sep, [facility] [address] [id number] [place] [address]- 9395 Sep, Hip pain associated with recalled total hip arthroplasty hardware 996.77 [facility] [place] [facility] [address] [id number] [place] [address]- 0796 Sep, [facility] [place] [facility] [address] [id number] [place] [address]- 8589 Sep, [facility] [place] [facility] [address] [id number] [place] [address]- 4859 Sep, [facility] [place] [facility] [address] [id number] [place] [address]- 6733 Aug, [facility] [address] [id number] [place] [address]- 3298 Jul, [facility] [address] [id number] [place] [address]- 2566 June, [facility] [address] [id number] [place] 3[address] June, [facility] [address] [id number] [place] [address]- 6050 June, [facility] [address] [facility] [id number] [place] [address]- 1709 June, [facility] [address] [id number] [place] [address]- 2234 June, [facility] [place] [facility] [address] [id number] [place] [address]- 7701 June, [facility] [place] [facility] [address] [id number] [place] [address]- 3583 May, [facility] [place] [facility] [address] [id number] [place] [address]- 0331 May, [facility] [place] [facility] [address] [id number], [place] [address]- 5275 13 May, 2014 [facility] [place] [facility] [address] [id number] [place] [address]- 0965 30 Apr, 2014 [facility] [place] [facility] [address] [id number] [place] [address]- 0866 30 Apr, 2014 [facility] [place] [facility] [address] [id number] [place] [address]- 6256 19 Apr, 2014 [facility] [place] [facility] [address] [id number] [place] [address]- 4539 19 Apr, 2014 [facility] [place] [facility] [address] [id number] [place] [address]- 5509 Apr, [facility] [place] [facility] [address] [id number] [place] [address]- 0630 Apr, [facility] [place] [facility] [address] [id number] [place] [address]- 1679 Apr, [facility] [place] [facility] [address] [id number] [place] [address]- 7251 Apr, [facility] [place] [facility] [address] [id number] [place] [address]- 2339 Apr, [facility] [place] [facility] [address] [id number] [place] [address]- 9231 Apr, [facility] [place] [facility] [address] [id number] [place] [address]- 7841 Apr, [facility] [place] [facility] [address] [id number], [place] [address]- 4841 Mar, [facility] [place] [facility] [address] [id number] [place] [address]- 0826 Mar, [facility] [place] [facility] [address] [id number] [place] [address]- 6476 Mar, [facility] [place] [facility] [address] [id number] [place] [address]- 3726 Mar, [facility] [place] [facility] [address] [id number] [place] [address]- 1467 10 Mar, 2014 [facility] [place] [facility] [address] [id number] [place] [address]- 7767 10 Mar, 2014 [facility] [place] [facility] [address] [id number] [place] [address]- 6425 15 Feb, 2014 [facility] [place] [facility] [address] [id number] [place] [address]- 1790 Feb, [facility] [place] [facility] [address] [id number] [place] [address]- 6051 Feb, [facility] [place] [facility] [address] [id number] [place] [address]- 5271 Feb, [facility] [place] [facility] [address] [id number] [place] [address]- 5330 Jan, [facility] [place] [facility] [address] [id number] [place] [address]- 6886 Jan, [facility] [place] [facility] [address] [id number] [place] [address]- 7274 Jan, [facility] [place] [facility] [address] [id number] [place] [address]- 4556 Jan, [facility] [place] [facility] [address] [id number] [place] [address]- 9521 Dec, [facility] [place] [facility] [address] [id number] [place] [address]- 8758 Dec, [facility] [place] [facility] [address] [id number] [place] [address]- 2886 Dec, [facility] [place] [facility] [address] [id number] [place] [address]- 7955 Dec, [facility] [place] [facility] [address] [id number] [place] [address]- 2221 Dec, [facility] [place] [facility] [address] [id number] [place] [address]- 5652 Dec, [facility] [place] [facility] [address] [id number] [place] [address]- 4029 Dec, [facility] [place] [facility] [address] [id number] [place] [address]- 8486 Dec, [facility] [place] [facility] [address] [id number] [place] [address]- 5100 Dec, [facility] [place] [facility] [address] [id number] [place] [address]- 2454 Dec, [facility] [place] [facility] [address] [id number] [place] [address]- 3661 Dec, [facility] [place] [facility] [address] [id number] [place] [address]- 3393 31 Nov, 2013 [facility] [place] [facility] [address] [id number] [place] [address]- 4747 28 Nov, 2013 [facility] [place] [facility] [address] [id number] [place] [address]- 8995 28 Nov, 2013 [facility] [place] [facility] [address] [id number] [place] [address]- 4825 17 Nov, 2013 [facility] [place] [facility] [address] [id number] [place] [address]- 6014 17 Nov, 2013 [facility] [place] [facility] [address] [id number], [place] [address]- 3896 15 Nov, 2013 [facility] [place] [facility] [address] [id number], [place] [address]- 0830 15 Nov, 2013 [facility] [place] [facility] [address] [id number] [place] [address]- 0042 15 Nov, 2013 [facility] [place] [facility] [address] [id number], [place] [address]- 3236 15 Nov, 2013 [facility] [place] [facility] [address] [id number], [place] [address]- 1144 14 Nov, 2013 [facility] [place] [facility] [address] [id number] [place] [address]- 0816 14 Nov, 2013 [facility] [place] [facility] [address] [id number] [place] [address]- 5578 14 Nov, 2013 [facility] [place] [facility] [address] [id number] [place] [address]- 8754 14 Nov, 2013 [facility] [place] [facility] [address] [id number] [place] [address]- 8327 13 Nov, 2013 [facility] [place] [facility] [address] [id number] [place] [address]- 9203 13 Nov, 2013 [facility] [place] [facility] [address] [id number] [place] [address]- 8831 11 Nov, 2013 [facility] [place] [facility] [address] [id number] [place] [address]- 9469 11 Nov, 2013 [facility] [place] [facility] [address] [id number] [place] [address]- 9026 07 Nov, 2013 [facility] [place] [facility] [address] [id number] [place] [address]- 4928 07 Nov, 2013 [facility] [place] [facility] [address] [id number] [place] [address]- 9013 07 Nov, 2013 [facility] [place] [facility] [address] [id number] [place] [address]- 6894 07 Nov, 2013 [facility] [place] [facility] [address] [id number] [place] [address]- 6286 30 Oct, 2013 [facility] [place] [facility] [address] [id number] [place] [address]- 6953 30 Sep, 2013 [facility] [place] [facility] [address] [id number] [place] [address]- 2078 26 Sep, 2013 [facility] [place] [facility] [address] [id number] [place] [address]- 6726 26 Sep, 2013 [facility] [place] [facility] [address] [id number] [place] [address]- 7697 22 Oct, 2013 [facility] [place] [facility] [address] [id number] [place] [address]- 1463 Oct, 2013 [facility] [place] [facility] [address] [id number] [place] [address]- 9204 Oct, [facility] [place] [facility] [address] [id number] [place] [address]- 3186 Oct, 2013 [facility] [place] [facility] [address] [id number] [place] [address]- 9014 Oct, 2013 [facility] [place] [facility] [address] [id number] [place] [address]- 8693 Oct, [facility] [place] [facility] [address] [id number] [place] [address]- 6113 Oct, [facility] [place] [facility] [address] [id number] [place] [address]- 1022 Oct, [facility] [place] [facility] [address] [id number] [place] [address]- 6564 Oct, [facility] [place] [facility] [address] [id number] [place] [address]- 5628 Oct, [facility] [place] [facility] [address] [id number] [place] [address]- 9999 Sep, [facility] [place] [facility] [address] [id number] [place] [address]- 1574 Sep, [facility] [place] [facility] [address] [id number] [place] [address]- 0048 Sep, [facility] [place] [facility] [address] [id number] [place] [address]- 1641 Sep, [facility] [place] [facility] [address] [id number] [place] [address]- 9503 Sep, [facility] [place] [facility] [address] [id number] [place] [address]- 2085 Sep, [facility] [place] [facility] [address] [id number] [place] [address]- 0431 Sep, [facility] [place] [facility] [address] [id number] [place] [address]- 3938 Sep, [facility] [place] [facility] [address] [id number] [place] [address]- 5075 Sep, [facility] [place] [facility] [address] [id number] [place] [address]- 7435 Sep, [facility] [place] [facility] [address] [id number] [place] [address]- 8582 Sep, [facility] [place] [facility] [address] [id number] [place] [address]- 8031 Sep, [facility] [place] [facility] [address] [id number] [place] [address]- 1429 Sep, [facility] [place] [facility] [address] [id number] [place] [address]- 8229 Sep, [facility] [place] [facility] [address] [id number] [place] [address]- 0571 Sep, [facility] [place] [facility] [address] [id number] [place] [address]- 3961 Sep, [facility] [place] [facility] [address] [id number] [place] [address]- 8549 Sep, [facility] [place] [facility] [address] [id number] [place] [address]- 9937 Sep, [facility] [place] [facility] [address] [id number] [place] [address]- 7562 Aug, [facility] [place] [facility] [address] [id number] [place] [address]- 7189 Aug, [facility] [place] [facility] [address] [id number] [place] [address]- 1922 Aug, [facility] [place] [facility] [address] [id number] [place] [address]- 4215 Aug, [facility] [place] [facility] [address] [id number] [place] [address]- 3601 Aug, [facility] [address] [id number] [place] [address]- 6484 Aug, [facility] [place] [facility] [address] [id number] [place] [address]- 6080 Jul, [facility] [address] [id number] [place] [address]- 0714 Jul, [facility] [place] [facility] [address] [id number] [place] [address]- 6583 Jul, [facility] [address] [id number] [place] [address]- 3739 Jul, [facility] [address] [id number] [place] [address]- 9251 June, [facility] [place] [facility] [address] [id number] [place] [address]- 6452 June, [facility] [address] [id number] [place] [address]- 6277 June, [facility] [place] [facility] [address] [id number] [place] [address]- 9208 June, [facility] [address] [id number] [place] [address]- 7584 June, [facility] [place] [facility] [address] [id number] [place] [address]- 8327 June, [facility] [place] [facility] [address] [id number] [place] [address]- 6236 June, [facility] [place] [facility] [address] [id number] [place] [address]- 8389 May, [facility] [place] [facility] [address] [id number] [place] [address]- 5133 May, [facility] [place] [facility] [address] [id number] [place] [address]- 9026 May, [facility] [place] [facility] [address] [id number] [place] [address]- 1006 May, [facility] [place] [facility] [address] [id number] [place] [address]- 6443 May, [facility] [place] [facility] [address] [id number] [place] [address]- 9817 May, [facility] [place] [facility] [address] [id number] [place] [address]- 7877 Apr, [facility] [place] [facility] [address] [id number] [place] [address]- 4406 31 Apr, 2013 [facility] [place] [facility] [address] [id number] [place] [address]- 2373 Apr, [facility] [place] [facility] [address] [id number] [place] [address]- 0325 Apr, [facility] [place] [facility] [address] [id number] [place] [address]- 1335 Apr, [facility] [place] [facility] [address] [id number] [place] [address]- 7415 14 Apr, 2013 [facility] [place] [facility] [address] [id number] [place] [address]- 2819 Apr, [facility] [place] [facility] [address] [id number] [place] [address]- 2815 Apr, [facility] [place] [facility] [address] [id number] [place] [address]- 5999 10 Apr, 2013 [facility] [place] [facility] [address] [id number] [place] [address]- 0506 10 Apr, 2013 [facility] [place] [facility] [address] [id number] [place] [address]- 4495 04 Apr, 2013 [facility] [place] [facility] [address] [id number] [place] [address]- 1676 04 Apr, 2013 [facility] [place] [facility] [address] [id number] [place] [address]- 7387 Apr, [facility] [place] [facility] [address] [id number] [place] [address]- 6988 Apr, [facility] [place] [facility] [address] [id number] [place] [address]- 7400 Mar, [facility] [place] [facility] [address] [id number] [place] [address]- 4626 Mar, [facility] [place] [facility] [address] [id number] [place] [address]- 5420 Mar, [facility] [place] [facility] [address] [id number] [place] [address]- 1593 Feb, [facility] [place] [facility] [address] [id number] [place] [address]- 0618 Feb, [facility] [place] [facility] [address] [id number] [place] [address]- 8245 Feb, [facility] [place] [facility] [address] [id number] [place] [address]- 8458 Feb, [facility] [place] [facility] [address] [id number] [place] [address]- 7432 Feb, [facility] [place] [facility] [address] [id number] [place] [address]- 3502 Feb, [facility] [place] [facility] [address] [id number] [place] [address]- 1087 Feb, [facility] [place] [facility] [address] [id number] [place] [address]- 5560 Feb, [facility] [place] [facility] [address] [id number] [place] [address]- 3191 Feb, [facility] [place] [facility] [address] [id number] [place] [address]- 8878 Feb, [facility] [place] [facility] [address] [id number] [place] [address]- 9001 Jan, [facility] [place] [facility] [address] [id number] [place] [address]- 3931 30 Jan, 2013 [facility] [address] [id number] [place] [address]- 0646 Jan, [facility] [place] [facility] [address] [id number] [place] [address]- 9696 Jan, [facility] [address] [id number] [place] [address]- 9236 Jan, [facility] [address] [id number] [place] [address]- 8585 Jan, [facility] [address] [id number] [place] [address]- 9521 Jan, [facility] [address] [id number] [place] [address]- 7908 Jan, [facility] [address] [id number] [place] [address]- 9612 Jan, [facility] [address] [id number] [place] [address] Jan, [facility] [address] [id number] [place] [address] Jan, [facility] [address] [id number] [place] [address] 17 Jan, 2013 [facility] [place] [facility] [address] [id number] [place] [address] 16 Jan, 2013 [facility] [place] [facility] [address] [id number] [place] [address] Jan, [facility] [place] [facility] [address] [id number] [place] [address] Jan, [facility] [place] [facility] [address] [id number] [place] [address] 09 Jan, 2013 [facility] [place] [facility] [address] [id number] [place] [address] Jan, [facility] [place] [facility] [address] [id number] [place] [address] Jan, [facility] [place] [facility] [address] [id number], [place] [address] Jan, [facility] [place] [facility] [address] [facility] [id number] [place] [address] Jan, [facility] [place] [facility] [address] [id number], [place] [address] Jan, [facility] [place] [facility] [address] [id number] [place] [address] Dec, [facility] [place] [facility] [address] [id number], [place] [address] Dec, [facility] [place] [facility] [address] [id number], [place] [address] Dec, [facility] [place] [facility] [address] [id number], [place] [address] Dec, [facility] [place] [facility] [address] [id number], [place] [address] Dec, [facility] [place] [facility] [address] [id number], [place] [address] Dec, [facility] [place] [facility] [address] [id number], [place] [address] Dec, [facility] [place] [facility] [address] [id number], [place] [address] Dec, [facility] [place] [facility] [address] [id number], [place] [address]- [address] Dec, [facility] [place] [facility] [address] [id number], [place] [address] Dec, [facility] [place] [facility] [address] [id number], [place] [address] Nov, [facility] [place] [facility] [address] [id number] [place] [address] 31 Nov, 2012 [facility] [address] [id number] [place] [address] 18 Nov, 2012 [facility] [place] [facility] [address] [id number] [place] [address] 18 Nov, 2012 [facility] [address] [id number] [place] [address] 11 Nov, 2012 [facility] [place] [facility] [address] [id number] [place] [address]- [address]073 11 Nov, 2012 [facility] [place] [facility] [address] [id number] [place] [address]- 9572 11 Nov, 2012 [facility] [place] [facility] [address] [id number] [place] [address]- [address]368 11 Nov, 2012 [facility] [place] [facility] [address] [id number] [place] [address]- [address]266 10 Nov, 2012 [facility] [place] [facility] [address] [id number] [place] [address] 3061 03 Nov, 2012 [facility] [place] [facility] [address] [id number] [place] [address]- 3604 26 Oct, 2012 [facility] [place] [facility] [address] [id number] [place] [address]- 9316 26 Oct, 2012 [facility] [place] [facility] [address] [id number] [place] [address] 2546 26 Oct, 2012 [facility] [place] [facility] [address] [id number] [place] [address]- 2547 25 Oct, 2012 [facility] [place] [facility] [address] [id number] [place] [address] 06 Oct, 2012 [facility] [place] [facility] [address] [id number] [place] [address] Sep, [facility] [place] [facility] [address] [id number] [place] [address]65 Sep, [facility] [place] [facility] [address] [id number] [place] [address] Aug, [facility] [address] [id number] [place] [address] 2966 Aug, [facility] [address] [id number] [place] [address] Aug, [facility] [address] [id number] [place] [address]- [address] Aug, [facility] [address] [id number] [place] [address] Aug, [facility] [address] [id number] [place] [address]- 7265 Aug, [facility] [address] [id number] [place] [address] 68[address] Aug, [facility] [address] [id number] [place] [address]- 277[address] Jul, [facility] [address] [id number] [place] [address] 1979 Jul, [facility] [address] [id number] [place] [address]- 8836 June, [facility] [place] [facility] [address] [id number] [place] [address]- [address]304 June, [facility] [place] [facility] [address] [id number] [place] [address]- 4514 June, [facility] [place] [facility] [address] [id number] [place] [address]- 9204 June, [facility] [place] [facility] [address] [id number] [place] [address]- [address] June, [facility] [place] [facility] [address] [id number] [place] [address]- 1769 June, [facility] [place] [facility] [address] [id number], [place] [address] June, [facility] [address] [id number] [place] [address] 8428 June, [facility] [address] [id number] [place] [address]- 7409 June, [facility] [address] [id number] [place] [address]- 459[address] June, [facility] [address] [id number] [place] [address]- 1719 June, [facility] [address] [id number] [place] [address]- 2004 May, [facility] [address] [id number] [place] [address]- 1145 May, [facility] [address] [id number] [place] [address]- 0911 May, [facility] [address] [id number] [place] [address]- 9209 May, [facility] [address] [id number] [place] [address]- 9998 Apr, [facility] [address] [id number] [place] [address]- 8161 Apr, [facility] [address] [id number] [place] [address]- 4667 Apr, [facility] [place] [facility] [address] [id number] [place] [address] Mar, [facility] [place] [facility] [address] [id number] [place] [address] Mar, [facility] [place] [facility] [address] [id number] [place] [address] Feb, [facility] [place] [facility] [address] [id number] [place] [address] Feb, [facility] [place] [facility] [address] [id number] [place] [address] 3548 Feb, [facility] [place] [facility] [address] [id number] [place] [address] Feb, [facility] [place] [facility] [address] [id number] [place] [address] 6746 16 Feb, 2012 [facility] [place] [facility] [address] [id number] [place] [address] 1106 14 Feb, 2012 [facility] [place] [facility] [address] [id number] [place] [address]- 4757 08 Feb, 2012 [facility] [place] [facility] [address] [id number] [place] [address]- 4[address] 31 Jan, 2012 [facility] [place] [facility] [address] [id number] [place] [address] 5675 31 Jan, 2012 [facility] [place] [facility] [address] [id number] [place] [address]- 5086 28 Jan, 2012 [facility] [place] [facility] [address] [id number] [place] [address]40 17 Jan, 2012 [facility] [place] [facility] [address] [id number] [place] [address] 7809 17 Jan, 2012 [facility] [place] [facility] [address] [id number] [place] [address] Jan, [facility] [place] [facility] [address] [id number] [place] [address]- 2852 11 Jan, 2012 [facility] [place] [facility] [address] [id number] [place] [address] 2546 10 Jan, 2012 [facility] [place] [facility] [address] [id number] [place] [address] 2546 10 Jan, 2012 [facility] [place] [facility] [address] [id number] [place] [address]- 2546 03 Jan, 2012 [facility] [place] [facility] [address] [id number] [place] [address] 9[address] Jan, [facility] [place] [facility] [address] [id number] [place] [address]- 4833 Dec, [facility] [place] [facility] [address] [id number] [place] [address]- 2793 Dec, [facility] [place] [facility] [address] [facility] [id number] [place] [address] Dec, [facility] [place] [facility] [address] [id number] [place] [address] 6042 Dec, [facility] [place] [facility] [address] [id number] [place] [address]- 5646 Nov, [facility] [place] [facility] [address] [id number] [place] [address]- 8485 Nov, [facility] [place] [facility] [address] [facility] [id number] [place] [address] Nov, [facility] [place] [facility] [address] [id number], [place] [address] 27 Oct, 2011 [facility] [place] [facility] [address] [id number] [place] [address]- 1065 24 Oct, 2011 [facility] [place] [facility] [address] [facility] [id number] [place] [address]- 5933 21 Oct, 2011 [facility] [place] [facility] [address] [id number], [place] [address] 4729 10 Oct, 2011 [facility] [place] [facility] [address] [id number], [place] [address] 07 Oct, 2011 [facility] [place] [facility] [address] [id number] [place] [address]- 4585 04 Oct, 2011 [facility] [place] [facility] [address] [facility] [id number], [place] [address]- 2834 04 Oct, 2011 [facility] [place] [facility] [address] [facility] [id number], [place] [address] 2893 29 Sep, 2011 [facility] [place] [facility] [address] [id number] [place] [address]- 9983 27 Sep, 2011 [facility] [place] [facility] [address] [id number] [place] [address]- 3866 23 Sep, 2011 [facility] [place] [facility] [address] [id number] [place] [address]- 8516 Sep, [facility] [place] [facility] [address] [id number] [place] [address]- 1086 Sep, [facility] [place] [facility] [address] [id number] [place] [address] 2545 30 Aug, 2011 [facility] [place] [facility] [address] [id number] [place] [address] 72[address] Aug, [facility] [place] [facility] [address] [id number] [place] [address]- 6306 Aug, [facility] [place] [facility] [address] [id number] [place] [address]- 4323 16 Aug, 2011 [facility] [place] [facility] [address] [id number] [place] [address]- 4977 Aug, [facility] [place] [facility] [address] [id number] [place] [address]- 0951 Aug, [facility] [place] [facility] [address] [id number] [place] [address]- 1091 Aug, [facility] [place] [facility] [address] [id number] [place] [address]- 3875 Jul, [facility] [place] [facility] [address] [id number] [place] [address]- 5587 Jul, [facility] [place] [facility] [address] [id number] [place] [address]- 5984 Jul, [facility] [place] [facility] [address] [id number] [place] [address]- 2546 Jul, [facility] [place] [facility] [address] [id number] [place] [address]- 7756 Jul, [facility] [place] [facility] [address] [id number] [place] [address] 2240 Jul, [facility] [address] [id number] [place] [address]- 2850 Jul, [facility] [address] [id number] [place] [address] 9446 Jul, [facility] [address] [id number] [place] [address]- 3794 Jul, [facility] [address] [id number] [place] [address] 8754 June, [facility] [address] [id number] [place] [address] 6230 June, [facility] [address] [id number] [place] [address]- 7844 June, [facility] [address] [id number] [place] [address]- 8604 June, [facility] [address] [id number] [place] [address]- 6651 June, [facility] [address] [id number] [place] [address]- 8336 June, [facility] [address] [id number] [place] [address]- 6256 June, [facility] [address] [id number] [place] [address]- 2979 June, [facility] [address] [id number] [place] [address]- 5125 May, [facility] [place] [facility] [address] [id number] [place] [address]- 2970 May, [facility] [place] [facility] [address] [id number] [place] [address]- 4431 May, [facility] [place] [facility] [address] [id number] [place] [address]- 2546 May, [facility] [place] [facility] [address] [id number] [place] [address]- 6586 May, [facility] [place] [facility] [address] [id number] [place] [address]- 5766 16 May, 2011 [facility] [place] [facility] [address] [id number] [place] [address]- 5666 May, [facility] [place] [facility] [address] [id number] [place] [address]- 0309 Apr, [facility] [place] [facility] [address] [id number] [place] [address]- 0879 Apr, [facility] [place] [facility] [address] [id number] [place] [address]- 0785 Apr, [facility] [place] [facility] [address] [id number] [place] [address]- 4707 Apr, [facility] [place] [facility] [address] [id number] [place] [address]- 7396 Apr, [facility] [place] [facility] [address] [id number] [place] [address]- 4847 Apr, [facility] [place] [facility] [address] [id number] [place] [address]- 1811 Apr, [facility] [place] [facility] [address] [id number] [place] [address]- 1677 Mar, [facility] [place] [facility] [address] [id number] [place] [address]- 5934 20 Mar, 2011 [facility] [place] [facility] [address] [id number] [place] [address]- 5204 14 Mar, 2011 [facility] [place] [facility] [address] [id number] [place] [address]- 7169 13 Mar, 2011 [facility] [place] [facility] [address] [facility] [id number] [place] [address]- 4067 09 Mar, 2011 [facility] [place] [facility] [address] [id number] [place] [address]- 1270 Mar, [facility] [address] [id number] [place] [address]- 5094 Mar, [facility] [place] [facility] [address] [id number] [place] [address]- 8725 Feb, [facility] [address] [id number] [place] [address]- 9602 Feb, [facility] [address] [id number] [place] [address]- 9320 Feb, [facility] [address] [id number] [place] [address]- 8892 Feb, [facility] [address] [id number] [place] [address]- 5349 Feb, [facility] [address] [id number] [place] [address]- 9879 Feb, [facility] [address] [id number] [place] [address]- 5305 Feb, [facility] [address] [id number] [place] [address]- 6208 Feb, [facility] [address] [id number] [place] [address]- 0153 Feb, [facility] [address] [id number] [place] [address]- 1654 Feb, [facility] [address] [id number] [place] [address]- 6820 Jan, [facility] [place] [facility] [address] [id number] [place] [address]- 8819 Jan, [facility] [place] [facility] [address] [id number] [place] [address]- 8813 Jan, [facility] [place] [facility] [address] [id number] [place] [address]- 1167 Jan, [facility] [place] [facility] [address] [id number] [place] [address]- 0497 Jan, [facility] [place] [facility] [address] [id number] [place] [address]- 9375 Jan, [facility] [place] [facility] [address] [id number] [place] [address]- 2990 15 Jan, 2011 [facility] [place] [facility] [address] [id number] [place] [address]- 4771 15 Jan, 2011 [facility] [place] [facility] [address] [id number] [place] [address]- 0150 Jan, [facility] [place] [facility] [address] [id number] [place] [address]- 1445 Jan, [facility] [place] [facility] [address] [id number] [place] [address]- 8947 Jan, [facility] [place] [facility] [address] [id number] [place] [address]- 1107 17 Dec, 2010 [facility] [place] [facility] [address] [id number] [place] [address]- 5859 17 Dec, 2010 [facility] [place] [facility] [address] [id number] [place] [address]- 2609 17 Dec, 2010 [facility] [place] [facility] [address] [id number], [place] [address]- 4258 16 Dec, 2010 [facility] [place] [facility] [address] [id number], [place] [address]- 4455 14 Dec, 2010 [facility] [place] [facility] [address] [id number] [place] [address]- 0778 09 Dec, 2010 [facility] [place] [facility] [address] [id number] [place] [address]- 7250 08 Dec, 2010 [facility] [place] [facility] [address] [id number], [place] [address]- 4087 07 Dec, 2010 [facility] [place] [facility] [address] [id number] [place] [address]- 2199 Dec, [facility] [address] [id number] [place] [address]- 0650 Nov, [facility] [place] [facility] [address] [id number] [place] [address]- 5886 Nov, [facility] [address] [id number] [place] [address]- 8765 Nov, [facility] [place] [facility] [address] [id number] [place] [address]- 9861 Nov, [facility] [address] [id number] [place] 8420 24 Nov, 2010 [facility] [address] [id number] [place] [address]- 1293 Nov, [facility] [address] [id number] [place] [address]- 5745 Aug, [facility] [address] [id number] [place] [address]- 1784 14 Feb, 2010 [facility] [address] [id number] [place] [address]- 8756 14 Jan, 2010 [facility] [address] [id number] [place] [address]- 8558 06 Jan, 2010 [facility] [place] [facility] [address] [id number] [place] [address] 2549 Jan, [facility] [place] [facility] [address] [id number] [place] [address]- 7424 Jan, [facility] [place] [facility] [address] [id number] [place] [address]- 4825 Jan, [facility] [place] [facility] [address] [id number] [place] [address]- 9096 Dec, [facility] [place] [facility] [address] [id number] [place] [address]- 0901 Dec, [facility] [address] [facility] [id number] [address]80 Dec, [facility] [address] [id number] [address]165 Dec, [facility] [address] [id number]662 Nov, [facility] [address] [id number], [place] [address]- 5169 Nov, [facility] [address] [facility] [id number], [place] [address]- 5767 Nov, IMMUNIZATIONS No Known Immunizations SOCIAL HISTORY [...]
--- OUTSIDE RECORDS SUMMARY | 2018-01-13 21:22 | XMS REPORT ---
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 Name Role Phone WYATT SOTO Unavailable PROBLEMS Type Condition ICD9-CM Code [id number] Code Onset Dates Condition Status SNOMED Code Problem Left hip pain M25.552 Active 59256776 Problem Other chronic pain G89.29 Active 22718088 Problem Chronic hepatitis C without hepatic coma B18.2 Active 422955489 Problem Other obesity due to excess calories E66.09 Active 723249435 Problem Body mass index (BMI) of 34.0-34.9 in adult Z68.34 Active 995563740 Problem Other psychoactive substance dependence, 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 Active 7657747 Problem 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, 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 726134336 Problem Gastroesophageal reflux disease, esophagitis presence not specified K21.9 Active 332168219 Problem Venous insufficiency (chronic) (peripheral) I87.2 Active 695419532 Problem Unspecified episodic mood disorder F39 Active 72310904 Problem Hypertension I10 Active 81365338 Problem Combined drug dependence excluding opioids, 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 Active 225533094 Problem Arthritis M19.90 Active 1475468 Problem 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 Active 20883806 Problem Anxiety F41.9 Active 65654122 ALLERGIES Substance Reaction Event Type Date Status Propranolol HCl chest pain, headache Drug Allergy Jan, Active Bactrim unknown Drug Allergy Jan, Active Penicillins unknown Non Drug Allergy Jan, Active ENCOUNTERS Encounter Location Date Diagnosis [facility] [address] [place] [address] [id number] [address] Jul, Left hip pain M25.552 ; Hypertension I10 ; Other obesity due to excess calories E66.09 and Body mass index (BMI) of 34.0-34.9 in adult Z68.34 [facility] [address] [address] Jul, Unspecified episodic mood disorder F39 [facility] [address], [place] [address] June, Gastroesophageal reflux disease, esophagitis presence not specified K21.9 [facility] [address] [address] June, [facility] [id number] [place] [address] 88331- 8199 June, [facility] [id number] [place] [address] 77121- 4623 June, Arthritis M19.90 [facility] [address] [place] [address] 13220- 6753 June, [facility] [id number] [place] [address] 99094- 4882 June, [facility] [address] [place] [address] 93621- 1746 June, Unspecified episodic mood disorder F39 [facility] [address] [place] [address] 95207- 2714 May, Unspecified episodic mood disorder F39 [facility] [address] [address] May, [facility] [address] [place] [address] 05876- 8560 May, Arthritis M19.90 [facility] [address] [address] May, Dysuria R30.0 ; Abscess L02.91 and Acute cystitis without hematuria N30.00 [facility] [id number] [address] May, Other disorder of impulse control F63.89 ; Unspecified episodic mood disorder F39 ; Combined drug dependence excluding opioids, 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 ; Anxiety F41.9 and Other psychoactive substance dependence, 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 [facility] [id number] [place] [address] 01734- 8091 May, [facility] [id number] [place] [address] 59152- 5736 May, Other disorder of impulse control F63.89 ; Unspecified episodic mood disorder F39 ; Combined drug dependence excluding opioids, 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 ; Other psychoactive substance dependence, 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 and Anxiety F41.9 [facility] [id number] [place] [address] 02948- 3409 May, Other chronic pain G89.29 ; Left hip pain M25.552 ; Hypertension I10 ; 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, 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 and Unspecified episodic mood disorder F39 [facility] [id number] [place] [address] 68537- 6824 Apr, [facility] [id number] [place] [address] 96072 -5043 Apr, Neck pain M54.2 ; Left hip pain M25.552 and Fall, initial encounter W19.XXXA [facility] [address] [place] [address] 47129- 8388 Apr, Unspecified episodic mood disorder F39 ; Combined drug dependence excluding opioids, 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 ; Anxiety F41.9 ; Other psychoactive substance dependence, 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 and Other disorder of impulse control F63.89 [facility] [address] [place] [address] 97964- 1143 Apr, [facility] [id number] [place] [address] 10925- 6231 Apr, Arthritis M19.90 and Unspecified episodic mood disorder F39 [facility] [id number] [place] [address] 29338- 8762 Apr, Unspecified episodic mood disorder F39 [facility] [address] [place] [address] 78777- 4558 Apr, [facility] [id number] [place] [address] 60244- 6631 Apr, [facility] [id number] [place] [address] 13046- 4508 Apr, Unspecified episodic mood disorder F39 ; Combined drug dependence excluding opioids, 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 ; Anxiety F41.9 ; Other psychoactive substance dependence, 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 and Other disorder of impulse control F63.89 [place] [id number] [place] [address] 26441- 8836 Mar, Unspecified episodic mood disorder F39 [place] [id number] [place] [address] 75426- 1331 Mar, Gastroesophageal reflux disease, esophagitis presence not specified K21.9 [facility] [id number] [place] [address] 60381- 0363 Mar, Arthritis M19.90 and Unspecified episodic mood disorder F39 [facility] [id number] [place] [address] 02408- 6959 Feb, [place] [id number] [place] [address] 54021- 2276 Feb, [facility] [id number] [place] [address] 20720- 1649 Feb, [facility] [id number] [place] [address] 16192- 1572 Feb, Arthritis M19.90 [facility] [id number] [place] [address] 80549- 0377 Feb, Non-pressure chronic ulcer of right calf, 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 ; Unspecified episodic mood disorder F39 and Left hip pain M25.552 [facility] [id number] [place] [address] 10637- 7005 Feb, [facility] [id number] [place] [address] 44921- 9214 Feb, [facility] [id number] [place] [address] 16060- 1373 Jan, Arthritis M19.90 [facility] [id number] [place] [address] 59392- 2975 Jan, Left hip pain M25.552 and Non-pressure chronic ulcer of right calf, 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 [facility] [id number] [place] [address] 30261- 6367 Jan, Chronic hepatitis C without hepatic coma B18.2 [facility] [id number] [place] [address] 14041- 0005 Jan, Encounter for immunization Z23 ; Venous insufficiency ( chronic) (peripheral) I87.2 ; Non-pressure chronic ulcer of unspecified calf limited to breakdown of skin L97.201 and Gastroesophageal reflux disease, esophagitis presence not specified K21.9 [facility] [id number] [place] [address] 63587- 9016 Jan, [facility] [id number] [place] [address] 05032- 7121 Jan, Chronic hepatitis C without hepatic coma B18.2 and Encounter for immunization Z23 [facility] [id number] [place] [address] 85917- 7006 Jan, Arthritis M19.90 [facility] [id number] [place] [address] 13576- 4960 Jan, [facility] [id number] [place] [address] 61699- 3047 Dec, [facility] [id number] [place] [address] 65039- 2104 Dec, Unspecified episodic mood disorder F39 [facility] [id number] [place] [address] 02684- 8186 Dec, Arthritis M19.90 [facility] [id number] [place] [address] 74237- 9595 Dec, Arthritis M19.90 [facility] [id number] [place] [address] 40934- 4471 Nov, [facility] [id number] [place] [address] 96130- 5159 Nov, [facility] [id number] [place] [address] 63453- 5510 Nov, Other psychoactive substance dependence, 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 ; 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, 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 and Chronic hepatitis C without hepatic coma B18.2 [facility] [id number] [place] [address] 62573- 7046 Nov, Arthritis M19.90 [facility] [id number] [place] [address] 14260 -4030 Oct, Partial thickness burn of abdomen, initial encounter T21.22XA [facility] [address] 52124- 6213 Oct, [facility] [id number] [place] [address] 28010- 5757 Sep, Arthritis M19.90 [facility] [id number] [place] [address] 53860- 8399 Sep, [facility] [id number] [place] [address] 19283- 8179 Sep, [facility] [id number] [place] [address] 84389- 3065 Sep, Unspecified episodic mood disorder F39 ; Chronic hepatitis C without hepatic coma B18.2 and Left hip pain M25.552 [facility] [id number] [place] [address] 71346- 2386 Sep, Arthritis M19.90 and Left hip pain M25.552 [facility] [id number] [place] [address] 60478- 3129 Aug, [facility] [id number] [place] [address] 24651- 6462 Aug, [facility] [id number] [place] [address] 07877- 7956 Aug, Chronic hepatitis C without hepatic coma B18.2 [facility] [id number] [place] [address] 26371- 0022 Aug, [facility] [id number] [place] [address] 53873- 9515 Aug, Chronic hepatitis C without hepatic coma B18.2 [facility] [id number] [place] [address] 98834- 9670 Aug, 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, 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 [facility] [id number] [place] [address] 18732- 2937 Aug, [facility] [id number] [place] [address] 53337- 9405 Aug, Chronic hepatitis C without hepatic coma B18.2 and Hypertension I10 [facility] [id number] [place] [address] 85620- 3461 Jul, [facility] [id number] [place] [address] 78544- 9978 June, [facility] [id number] [place] [address] 42463- 9785 Apr, Fibromyalgia M79.7 ; Left hip pain M25.552 and Decubitus ulcer of sacral region, stage 1 L89.151 [facility] [id number] [place] [address] 22048- 1576 Apr, [facility] [id number] [place] [address] 14605- 7339 Apr, [facility] [address] [place] [address] 15399- 7857 Feb, [facility] [id number] [place] [address] 07719- 3898 Dec, Anxiety F41.9 ; Combined drug dependence excluding opioids, 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 and Unspecified episodic mood disorder F39 [facility] [id number] [place] [address] 25308- 9625 Dec, [facility] [id number] [place] [address] 77595- 0724 Nov, [facility] [id number] [place] [address] 79748- 2488 Nov, [facility] [id number] [place] [address] 16610- 1876 Nov, Other disorder of impulse control F63.89 and Anxiety F41.9 [facility] [id number] [place] [address] 35412- 2464 Oct, [facility] [id number] [place] [address] 95392 -1662 14 Oct, 2015 Open wound of left thigh, initial encounter S71.102A [facility] [id number] [place] [address] 85621- 1923 Oct, [facility] [id number] [place] [address] 25452- 8040 Sep, Unspecified episodic mood disorder F39 ; Other disorder of impulse control 312.39 ; Combined drug dependence excluding opioids, 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 and Anxiety F41.9 [facility] [id number] [place] [address] 69011- 4312 Sep, Other disorder of impulse control 312.39 ; Combined drug dependence excluding opioids, 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 ; Anxiety F41.9 and Unspecified episodic mood disorder F39 [facility] [address] [place] [address]- 2028 Sep, Other chronic pain G89.29 [facility] [address], [place] [address]- 2835 Sep, [facility] [address], [place] [address]- 2593 Sep, [facility] [address] [place] [address] 66852- 3658 Aug, [facility] [address], [place] [address]- 7507 Aug, [facility] [id number] [place] [address] 40533- 4044 Aug, [facility] [id number] [place] [address] 90416- 9310 Jul, [facility] [address] [place] [address] 29112- 2398 Jul, [facility] [address] [place] [address] 59238- 4591 Jul, [facility] [address] [place] [address] 07291- 7029 17 Jul, 2015 Arthritis M19.90 ; Chronic hepatitis C without hepatic coma B18.2 and Left hip pain M25.552 [facility] [address], [place] [address]- 3333 Jul, Left knee pain M25.562 [facility] [address], [place] [address]- 2895 Jul, Combined drug dependence excluding opioids, 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 ; Anxiety F41.9 ; Other disorder of impulse control 312.39 and Unspecified episodic mood disorder F39 [facility] [address], [place] [address]- 1537 13 Jul, 2015 Left knee pain M25.562 [facility] [address] [address]- 8135 08 Jul, 2015 Left knee pain M25.562 and Left hip pain M25.552 [facility] [id number] [place] [address] 76255- 5039 Jul, [facility] [id number] [place] [address] 44262- 5082 June, [facility] [id number] [place] [address] 09610- 7049 June, Combinations of drug dependence excluding opioid type drug, unspecified abuse 304.80 ; Other disorder of impulse control 312.39 ; Unspecified episodic mood disorder F39 and Anxiety F41.9 [place] [id number] [place] [address] 79262- 5352 June, Other fatigue R53.83 ; Headache R51 and Left knee pain M25.562 [place] [id number] [place] [address] 99141- 2566 June, Unspecified episodic mood disorder F39 ; Combinations of drug dependence excluding opioid type drug, unspecified abuse 304.80 ; Other disorder of impulse control 312.39 and Anxiety F41.9 [place] [address] [place] [address] 68704- 0992 June, Anxiety F41.9 [place] [id number] [place] [address] 89321- 7388 June, Pain in left knee M25.562 [place] [facility] [id number] [place] [address] 38150- 7535 June, Anxiety F41.9 and Combinations of drug dependence excluding opioid type drug, unspecified abuse 304.80 [place] [id number] [place] [address] 65022- 4713 June, Unspecified episodic mood disorder 296.90 ; Combinations of drug dependence excluding opioid type drug, unspecified abuse 304.80 and Other disorder of impulse control 312.39 [place] [id number] [place] [address] 53574- 3137 June, Anxiety F41.9 and Unspecified episodic mood disorder 296.90 [facility] [id number] [place] [address] 53190- 8702 May, Arthritis M19.90 [facility] [id number] [place] [address] 55378- 3950 May, Arthritis M19.90 [facility] [id number] [place] [address] 71611- 0144 May, Anxiety F41.9 ; Combinations of drug dependence excluding opioid type drug, unspecified abuse 304.80 and Other disorder of impulse control 312.39 [facility] [id number] [place] [address] 08164- 8121 May, Left knee pain M25.562 [place] [id number] [place] [address] 39654- 8460 May, Arthritis M19.90 [facility] [id number] [place] [address] 19902- 5705 May, [facility] [id number] [place] [address] 20841- 1275 May, Anxiety F41.9 ; Unspecified episodic mood disorder 296.90 ; Combinations of drug dependence excluding opioid type drug, unspecified abuse 304.80 and Other disorder of impulse control 312.39 [facility] [address] [place] [address] 66653- 0974 May, Left knee pain M25.562 [facility] [id number] [place] [address] 72939- 5551 11 May, 2015 Left knee pain M25.562 ; Combinations of drug dependence excluding opioid type drug, unspecified abuse 304.80 ; Other disorder of impulse control 312.39 ; Fibromyalgia M79.7 ; Hypertension I10 ; Unspecified episodic mood disorder 296.90 and Left hip pain M25.552 [facility] [id number] [place] [address] 91550- 3454 May, Unspecified episodic mood disorder 296.90 ; Other disorder of impulse control 312.39 ; Combinations of drug dependence excluding opioid type drug, unspecified abuse 304.80 and Anxiety F41.9 [place] [address] [address]- 5343 May, Left knee pain M25.562 ; Combinations of drug dependence excluding opioid type drug, unspecified abuse 304.80 ; Other disorder of impulse control 312.39 ; Fibromyalgia M79.7 ; Hypertension I10 ; Unspecified episodic mood disorder 296.90 and Left hip pain M25.[address] [place] [address] 03233- 2592 May, Anxiety F41.9 ; Unspecified episodic mood disorder 296.90 ; Other disorder of impulse control 312.39 and Combinations of drug dependence excluding opioid type drug, unspecified abuse 304.80 [id number] [place] [address] 20881- 3406 Apr, 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 and 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, implants and grafts, initial encounter T84.82XA [place] [id number] [place] [address] 08469- 1461 Apr, Anxiety F41.9 ; Unspecified episodic mood disorder 296.90 ; Combinations of drug dependence excluding opioid type drug, unspecified abuse 304.80 and Other disorder of impulse control 312.39 [place] [address] [place] [address] 48238- 0373 Apr, Arthritis M19.90 [place] [address] [place] [address] 95527- 1690 Apr, Anxiety F41.9 ; Unspecified episodic mood disorder 296.90 ; Combinations of drug dependence excluding opioid type drug, unspecified abuse 304.80 and Other disorder of impulse control 312.39 [place] [address] [address]- 0626 Apr, Arthritis M19.[address] [place] [address]- 9484 15 Apr, 2015 [facility] [id number] [place] [address] 32283- 7241 15 Apr, 2015 [facility] [id number] [place] [phone] 14 Apr, 2015 Unspecified episodic mood disorder 296.90 ; Combinations of drug dependence excluding opioid type drug, unspecified abuse 304.80 ; Other disorder of impulse control 312.39 and Anxiety F41.9 [facility] [id number] [place] [id number] [phone] 11 Apr, 2015 Left knee pain M25.562 [facility] [id number] [place] [address] [phone] 11 Apr, 2015 [facility] [id number] [place] [phone] Mar, Unspecified episodic mood disorder 296.90 ; Anxiety F41.9 ; Other disorder of impulse control 312.39 and Combinations of drug dependence excluding opioid type drug, unspecified abuse 304.80 [facility] [facility] [id number] [place] [address] 09718- 9335 Mar, Hyperpigmentation L81.9 [facility] [address] [place] [address] 46271- 8600 Mar, Arthritis M19.90 and Anxiety F41.9 [facility] [address] [place] [address] 30515- 4664 Mar, Unspecified episodic mood disorder F39 ; Combined drug dependence excluding opioids, 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 ; Other disorder of impulse control F63.89 and Anxiety F41.9 [facility] [address] [place] [address] 09342- 4160 12 Mar, 2015 Well woman exam Z01.419 ; Other fatigue R53.83 ; Hot flashes N95.1 ; Depression, unspecified depression type F32.9 and Body mass index (BMI) of 23.0-23.9 in adult Z68.23 [place] [address] [address]- 6297 11 Mar, 2015 Unspecified episodic mood disorder 296.90 ; Other disorder of impulse control 312.39 and Anxiety F41.9 [place] [address] 34672- 0756 11 Mar, 2015 Well woman exam Z01.419 [...] breast Z12.39 and Limited mobility Z74.[address] [address]- 0371 10 Mar, 2015 [place] [address] 09836- 4491 10 Mar, 2015 [place] [address] 07979- 1023 Mar, [place] [address] 18517- 7119 03 Mar, 2015 Other specified complication of internal orthopedic prosthetic devices, implants and grafts, initial encounter T84.89XA ; Fibromyalgia M79.7 ; Hypertension I10 ; Anemia D64.9 ; Insomnia G47.00 ; Anxiety F41.9 ; Arthritis M19.90 and Migraine G43.909 [place] [address] 35706- 1599 Mar, [facility] [address] [address] 5567 Feb, [facility] [address] [place] [address] 34271- 3789 Feb, Arthritis M19.90 and Anxiety F41.9 [facility] [address], [place] [address] 0098 Feb, [facility] [address] [place] [id number] [place] [address] 66439- 8884 Feb, [facility] [address] [place] [address] 91017- 9551 Feb, [facility] [id number] [place] [address] 70086- 2667 Feb, [facility] [id number] [place] [address] 81299- 5180 Feb, Anxiety F41.9 [facility] [address] [place] [address] 17172- 6246 Feb, [facility] [address] [place] [address] 94366- 2366 Feb, [facility] [address], [place] [address]- 4694 Feb, 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 and Fibromyalgia M79.7 [facility] [address] [address] 2947 Feb, [facility] [address], [place] [address]- 0677 Jan, [facility] [id number] [address]- 6065 Jan, [facility] [address], [place] [address]- 8911 Jan, [facility] [address], [place] [address]- 0599 Jan, [facility] [address], [place] [address]- 6597 Jan, [facility] [address] [place] [address] 8- 4416 Jan, [facility] [id number], [place] [address]- 7307 Jan, [facility] [id number] [place] [address] 741304- 3162 Jan, [facility] [address] [place] [address] 98792- 2472 Dec, [facility] [id number] [place] [address] 89723- 2023 Dec, Left knee pain M25.562 [facility] [id number] [place] [address] 99111- 9512 Dec, Left knee pain M25.562 [facility] [address] [place] [address] 59272- 4122 Dec, Fibromyalgia M79.7 ; Hypertension I10 and Arthritis M19.90 [facility] [address], [place] [address]- 6507 Dec, [facility] [address], [place] [address]- 7621 Dec, [facility] [address], [place] [address]- 3115 Dec, [facility] [address] [place] [address] 85308- 8747 Dec, [facility] [address], [place] [address]- 8887 Nov, [facility] [address], [place] [address]- 3843 Nov, [facility] [address] [place] [id number] [place] [address]- 2970 Nov, [facility] [address] [id number], [place] [address]- 1674 Nov, Hypertension I10 [facility] [place] [facility] [address] [id number] [place] [address] 2546 23 Oct, 2014 [facility] [place] [facility] [address] [id number] [place] [address] 2546 17 Oct, 2014 [facility] [place] [facility] [address] [id number] [place] [address] 2540 04 Oct, 2014 [facility] [address] [id number] [place] [address]- 4151 Oct, 2014 [facility] [address] [id number] [place] [address]- 2027 Oct, [facility] [address] [id number], [place] [address]- 9783 Sep, [facility] [address] [id number], [place] [address]- 9461 Sep, [facility] [address] [facility] [id number], [place] [address]- 5726 Sep, Hip pain associated with recalled total hip arthroplasty hardware 996.77 [facility] [place] [facility] [address] [id number], [place] [address]- 3204 Sep, [facility] [place] [facility] [address] [id number], [place] [address]- 254 Sep, [facility] [place] [facility] [address] [id number], [place] [address]- 1250 Sep, [facility] [place] [facility] [address] [facility] [id number], [place] [address]- 0765 Aug, [facility] [place] [facility] [address] [id number], [place] [address]- 7203 Jul, [facility] [place] [facility] [address] [id number] [place] [address]- 4653 June, [facility] [place] [facility] [address] [id number] [place] [address]- 7883 June, [facility] [place] [facility] [address] [id number] [place] [address]- 6131 June, [facility] [place] [facility] [address] [id number] [place] [address]- 3063 June, [facility] [place] [facility] [address] [id number] [place] [address]- 9604 June, [facility] [place] [facility] [address] [id number] [place] [address]- 5015 June, [facility] [place] [facility] [address] [id number] [place] [address]- 7511 May, [facility] [place] [facility] [address] [id number] [place] [address]- 2943 May, [facility] [place] [facility] [address] [id number] [place] [address]- 2281 May, [facility] [place] [facility] [address] [id number] [place] [address]- 3789 Apr, [facility] [place] [facility] [address] [id number] [place] [address]- 7101 Apr, [facility] [place] [facility] [address] [id number] [place] [address]- 5981 Apr, [facility] [place] [facility] [address] [id number] [place] [address]- 9875 Apr, [facility] [place] [facility] [address] [id number] [place] [address]- 3150 Apr, [facility] [place] [facility] [address] [id number] [place] [address]- 8062 Apr, [facility] [place] [facility] [address] [id number] [place] [address]- 0273 Apr, [facility] [place] [facility] [address] [id number] [place] [address]- 6047 Apr, [facility] [place] [facility] [address] [id number] [place] [address]- 4932 Apr, [facility] [place] [facility] [address] [id number] [place] [address]- 7053 Apr, [facility] [place] [facility] [address] [id number] [place] [address]- 3974 Apr, [facility] [place] [facility] [address] [id number] [place] [address]- 3488 Mar, [facility] [place] [facility] [address] [id number] [place] [address]- 4340 Mar, [facility] [place] [facility] [address] [id number] [place] [address]- 8854 Mar, [facility] [place] [facility] [address] [id number] [place] [address]- 8176 Mar, [facility] [place] [facility] [address] [id number] [place] [address]- 6575 Mar, [facility] [place] [facility] [address] [id number] [place] [address]- 2814 Mar, [facility] [place] [facility] [address] [id number] [place] [address]- 5134 Feb, [facility] [place] [facility] [address] [id number], [place] [address]- 9617 Feb, [facility] [place] [facility] [address] [id number] [place] [address]- 8539 Feb, [facility] [place] [facility] [address] [id number] [place] [address]- 0895 Feb, [facility] [place] [facility] [address] [id number] [place] [address]- 3741 Jan, [facility] [place] [facility] [address] [id number] [place] [address]- 0847 Jan, [facility] [place] [facility] [address] [id number] [place] [address]- 4074 Jan, [facility] [place] [facility] [address] [id number] [place] [address]- 1986 Jan, [facility] [place] [facility] [address] [id number] [place] [address]- 4537 Dec, [facility] [place] [facility] [address] [id number] [place] [address]- 1648 Dec, [facility] [place] [facility] [address] [id number] [place] [address]- 3325 Dec, [facility] [place] [facility] [address] [id number] [place] [address]- 3571 Dec, [facility] [place] [facility] [address] [id number] [place] [address]- 4622 Dec, [facility] [place] [facility] [address] [id number] [place] [address]- 8568 Dec, [facility] [place] [facility] [address] [id number] [place] [address]- 6255 Dec, [facility] [place] [facility] [address] [facility] [id number] [place] [address]- 1604 Dec, [facility] [place] [facility] [address] [id number] [place] [address]- 4206 Dec, [facility] [place] [facility] [address] [id number] [place] [address]- 9077 Dec, [facility] [place] [facility] [address] [id number] [place] [address]- 0194 Dec, [facility] [place] [facility] [address] [id number] [place] [address]- 9386 Nov, [facility] [place] [facility] [address] [id number], [place] [address]- 5959 Nov, [facility] [place] [facility] [address] [id number] [place] [address]- 8617 28 Nov, 2013 [facility] [place] [facility] [address] [id number] [place] [address]- 4360 17 Nov, 2013 [facility] [place] [facility] [address] [id number] [place] [address]- 1321 17 Nov, 2013 [facility] [place] [facility] [address] [id number] [place] [address]- 2320 15 Nov, 2013 [facility] [place] [facility] [address] [id number] [place] [address]- 1843 15 Nov, 2013 [facility] [place] [facility] [address] [id number] [place] [address]- 2817 15 Nov, 2013 [facility] [place] [facility] [address] [id number] [place] [address]- 3802 15 Nov, 2013 [facility] [place] [facility] [address] [id number] [place] [address]- 1097 14 Nov, 2013 [facility] [place] [facility] [address] [id number] [place] [address]- 2484 14 Nov, 2013 [facility] [place] [facility] [address] [id number] [place] [address]- 6043 14 Nov, 2013 [facility] [place] [facility] [address] [id number] [place] [address]- 1790 14 Nov, 2013 [facility] [place] [facility] [address] [id number] [place] [address]- 9915 13 Nov, 2013 [facility] [place] [facility] [address] [id number] [place] [address]- 4898 13 Nov, 2013 [facility] [place] [facility] [address] [id number] [place] [address]- 3325 11 Nov, 2013 [facility] [place] [facility] [address] [id number] [place] [address]- 5558 11 Nov, 2013 [facility] [place] [facility] [address] [id number], [place] [address]- 7878 07 Nov, 2013 [facility] [place] [facility] [address] [id number] [place] [address]- 9453 07 Nov, 2013 [facility] [place] [facility] [address] [id number] [place] [address]- 6335 07 Nov, 2013 [facility] [place] [facility] [address] [id number] [place] [address]- 5777 07 Nov, 2013 [facility] [place] [facility] [address] [id number] [place] [address]- 0883 30 Oct, 2013 [facility] [place] [facility] [address] [id number] [place] [address]- 4011 30 Oct, 2013 [facility] [place] [facility] [address] [id number] [place] [address]- 6952 26 Oct, 2013 [facility] [place] [facility] [address] [id number] [place] [address]- 9615 26 Oct, 2013 [facility] [place] [facility] [address] [id number] [place] [address]- 7310 22 Oct, 2013 [facility] [place] [facility] [address] [id number] [place] [address]- 7702 22 Oct, 2013 [facility] [place] [facility] [address] [id number] [place] [address]- 9329 18 Oct, 2013 [facility] [place] [facility] [address] [id number], [place] [address]- 7427 18 Oct, 2013 [facility] [place] [facility] [address] [id number], [place] [address]- 2540 18 Oct, 2013 [facility] [place] [facility] [address] [id number] [place] [address]- 2549 18 Oct, 2013 [facility] [place] [facility] [address] [id number] [place] [address]- 7268 12 Oct, 2013 [facility] [place] [facility] [address] [id number] [place] [address]- 2549 12 Oct, 2013 [facility] [place] [facility] [address] [id number] [place] [address]- 3514 Oct, [facility] [place] [facility] [address] [id number] [place] [address]- 2250 Oct, [facility] [place] [facility] [address] [id number] [place] [address]- 7088 Sep, [facility] [place] [facility] [address] [id number] [place] [address]- 0001 Sep, [facility] [place] [facility] [address] [id number] [place] [address]- 9250 Sep, [facility] [place] [facility] [address] [id number] [place] [address]- 1690 Sep, [facility] [place] [facility] [address] [id number] [place] [address]- 2667 Sep, [facility] [place] [facility] [address] [id number] [place] [address]- 5988 Sep, [facility] [place] [facility] [address] [id number] [place] [address]- 3323 Sep, [facility] [place] [facility] [address] [id number] [place] [address]- 3407 Sep, [facility] [place] [facility] [address] [id number] [place] [address]- 8750 Sep, [facility] [place] [facility] [address] [id number] [place] [address]- 3606 Sep, [facility] [place] [facility] [address] [id number] [place] [address]- 1151 Sep, [facility] [place] [facility] [address] [id number] [place] [address]- 1321 Sep, [facility] [place] [facility] [address] [id number] [place] [address]- 2962 Sep, [facility] [place] [facility] [address] [id number] [place] [address]- 2254 Sep, [facility] [place] [facility] [address] [id number] [place] [address]- 7417 Sep, [facility] [place] [facility] [address] [id number] [place] [address]- 7385 Sep, [facility] [place] [facility] [address] [id number] [place] [address]- 4964 Sep, [facility] [place] [facility] [address] [id number] [place] [address]- 6554 Sep, [facility] [place] [facility] [address] [id number] [place] [address]- 0848 Aug, [facility] [place] [facility] [address] [id number] [place] [address]- 3609 Aug, [facility] [place] [facility] [address] [id number] [place] [address]- 6092 Aug, [facility] [place] [facility] [address] [id number] [place] [address]- 7791 Aug, [facility] [place] [facility] [address] [id number] [place] [address]- 5543 Aug, [facility] [place] [facility] [address] [id number] [place] [address]- 4297 Aug, [facility] [place] [facility] [address] [id number] [place] [address]- 6070 Jul, [facility] [place] [facility] [address] [id number] [place] [address]- 7940 Jul, [facility] [place] [facility] [address] [id number] [place] [address]- 7693 Jul, [facility] [place] [facility] [address] [id number] [place] [address]- 9506 Jul, [facility] [place] [facility] [address] [id number] [place] [address]- 8960 June, [facility] [place] [facility] [address] [id number] [place] [address]- 8140 June, [facility] [place] [facility] [address] [id number] [place] [address]- 1084 June, [facility] [place] [facility] [address] [id number] [place] [address]- 2307 June, [facility] [place] [facility] [address] [id number] [place] [address]- 5456 June, [facility] [place] [facility] [address] [id number] [place] [address]- 3198 June, [facility] [place] [facility] [address] [id number] [place] [address]- 1952 June, [facility] [place] [facility] [address] [id number] [place] [address]- 2288 May, [facility] [place] [facility] [address] [id number] [place] [address]- 0389 May, [facility] [place] [facility] [address] [id number] [place] [address]- 0343 May, [facility] [place] [facility] [address] [id number] [place] [address]- 2532 May, [facility] [place] [facility] [address] [id number] [place] [address]- 5580 May, [facility] [place] [facility] [address] [id number] [place] [address]- 8031 May, [facility] [place] [facility] [address] [id number] [place] [address]- 8565 Apr, [facility] [place] [facility] [address] [id number] [place] [address]- 2128 31 Apr, 2013 [facility] [place] [facility] [address] [id number] [place] [address]- 8135 28 Apr, 2013 [facility] [place] [facility] [address] [id number] [place] [address]- 3371 Apr, [facility] [place] [facility] [address] [id number] [place] [address]- 9256 14 Apr, 2013 [facility] [place] [facility] [address] [id number] [place] [address]- 2406 14 Apr, 2013 [facility] [place] [facility] [address] [id number] [place] [address]- 5525 12 Apr, 2013 [facility] [place] [facility] [address] [id number] [place] [address]- 2218 12 Apr, 2013 [facility] [place] [facility] [address] [id number] [place] [address]- 0261 10 Apr, 2013 [facility] [place] [facility] [address] [id number] [place] [address]- 6112 10 Apr, 2013 [facility] [place] [facility] [address] [id number] [place] [address]- 4265 04 Apr, 2013 [facility] [place] [facility] [address] [id number] [place] [address]- 1199 04 Apr, 2013 [facility] [place] [facility] [address] [id number] [place] [address]- 6388 Apr, [facility] [place] [facility] [address] [id number] [place] [address]- 9257 Apr, [facility] [place] [facility] [address] [id number] [place] [address]- 2538 Mar, [facility] [place] [facility] [address] [id number] [place] [address]- 4693 Mar, [facility] [place] [facility] [address] [id number] [place] [address]- 0040 Mar, [facility] [place] [facility] [address] [id number] [place] [address] Feb, [facility] [place] [facility] [address] [id number] [place] [address] Feb, [facility] [place] [facility] [address] [id number] [place] [address] Feb, [facility] [place] [facility] [address] [id number] [place] [address] Feb, [facility] [place] [facility] [address] [id number] [place] [address] Feb, [facility] [place] [facility] [address] [id number] [place] [address] Feb, [facility] [place] [facility] [address] [id number] [place] [address] Feb, [facility] [place] [facility] [address] [id number] [place] [address] Feb, [facility] [place] [facility] [address] [id number] [place] [address] Feb, [facility] [place] [facility] [address] [id number] [place] [address] Feb, [facility] [place] [facility] [address] [id number] [place] [address] Jan, [facility] [place] [facility] [address] [id number] [place] [address] Jan, [facility] [place] [facility] [address] [id number] [place] [address] 87[address] Jan, [facility] [place] [facility] [address] [id number] [place] [address] 67[address] Jan, [facility] [place] [facility] [address] [id number], [place] [address] Jan, [facility] [place] [facility] [address] [id number] [place] [address] Jan, [facility] [place] [facility] [address] [id number] [place] [address] Jan, [facility] [place] [facility] [address] [id number] [place] [address] Jan, [facility] [place] [facility] [address] [id number] [place] [address] 19 Jan, 2012 [facility] [address] [id number] [place] [address] 19 Jan, 2012 [facility] [address] [id number] [place] [address] 17 Jan, 2012 [facility] [address] [id number] [place] [address] 17 Jan, 2012 [facility] [address] [id number] [place] [address] 84[address] 16 Jan, 2012 [facility] [address] [id number] [place] [address] Jan, [facility] [address] [id number] [place] [address] Jan, [facility] [address] [facility] [id number] [place] [address]65 Jan, [facility] [address] [id number] [place] [address] Jan, [facility] [address] [id number] [place] [address] 05 Jan, 2013 [facility] [address] [facility] [id number] [place] [address] 05 Jan, 2013 [facility] [address] [id number] [place] [address] Jan, [facility] [address] [id number] [place] [address] Jan, [facility] [address] [id number] [place] [address] Dec, [facility] [address] [facility] [id number] [place] [address] Dec, [facility] [address] [id number] [place] [address] 8567 Dec, [facility] [place] [facility] [address] [id number] [place] [address] 74[address] Dec, [facility] [place] [facility] [address] [id number] [place] [address] 1546 Dec, [facility] [place] [facility] [address] [id number] [place] [address] Dec, [facility] [place] [facility] [address] [id number] [place] [address]- 4[address] Dec, [facility] [place] [facility] [address] [id number] [place] [address] Dec, [facility] [place] [facility] [address] [id number] [place] [address] Dec, [facility] [place] [facility] [address] [id number] [place] [address] 4547 Dec, [facility] [place] [facility] [address] [id number], [place] [address] Nov, [facility] [place] [facility] [address] [id number] [place] [address] Nov, [facility] [place] [facility] [address] [id number], [place] [address] Nov, [facility] [place] [facility] [address] [id number], [place] [address] Nov, [facility] [place] [facility] [address] [id number], [place] [address] Nov, [facility] [place] [facility] [address] [id number], [place] [address] Nov, [facility] [place] [facility] [address] [id number], [place] [address] Nov, [facility] [place] [facility] [address] [id number], [place] [address] Nov, [facility] [place] [facility] [address] [id number], [place] [address] Nov, [facility] [address] [id number] [place] [address] Nov, [facility] [place] [facility] [address] [id number] [place] [address] 34[address] Oct, [facility] [place] [facility] [address] [id number] [place] [address]- 6536 Oct, [facility] [place] [facility] [address] [id number] [place] [address] Oct, [facility] [place] [facility] [address] [id number] [place] [address] 7646 Oct, [facility] [place] [facility] [address] [id number] [place] [address]- [address] Oct, [facility] [address] [id number] [place] [address] Sep, [facility] [place] [facility] [address] [id number] [place] [address] Sep, [facility] [place] [facility] [address] [id number] [place] [address] Aug, [facility] [place] [facility] [address] [id number] [place] [address] 8314 Aug, [facility] [place] [facility] [address] [id number] [place] [address] Aug, [facility] [place] [facility] [address] [id number] [place] [address] 8707 Aug, [facility] [place] [facility] [address] [id number] [place] [address] 6[address] Aug, [facility] [place] [facility] [address] [id number] [place] [address] 5580 Aug, [facility] [place] [facility] [address] [id number] [place] [address] 8[address] Aug, [facility] [place] [facility] [address] [id number] [place] [address] Jul, [facility] [address] [id number] [place] [address] 4[address] Jul, [facility] [address] [id number] [place] [address] 98[address] June, [facility] [address] [id number] [place] [address] 0[address] June, [facility] [address] [id number] [place] [address] 7169 June, [facility] [address] [id number] [place] [address]- 1075 June, [facility] [address] [id number] [place] [address] 3148 June, [facility] [address] [id number] [place] [address] 1779 June, [facility] [address] [id number] [place] [address]- 1559 June, [facility] [address] [id number] [place] [address]- 2703 June, [facility] [address] [id number] [place] [address] 4975 June, [facility] [address] [id number] [place] [address] 0376 June, [facility] [address] [id number] [place] [address]- 3032 June, [facility] [address] [id number] [place] [address] 8555 May, [facility] [address] [id number] [place] [address]- 8129 May, [facility] [address] [id number] [place] [address] 5037 May, [facility] [address] [id number] [place] [address]- 4089 May, [facility] [place] [facility] [address] [id number] [place] [address]- 3248 Apr, [facility] [address] [id number] [place] [address]- 0629 Apr, [facility] [place] [facility] [address] [id number] [place] [address]- 1113 Apr, [facility] [address] [id number] [place] [address] 1741 Mar, [facility] [place] [facility] [address] [id number] [place] [address] Mar, [facility] [address] [id number] [place] [address] 8358 Feb, [facility] [place] [facility] [address] [id number] [place] [address]- 4025 Feb, [facility] [place] [facility] [address] [id number] [place] [address]- 1092 Feb, [facility] [place] [facility] [address] [id number] [place] [address] 3815 Feb, [facility] [place] [facility] [address] [id number] [place] [address]- 7844 16 Feb, 2012 [facility] [place] [facility] [address] [id number], [place] [address] 14 Feb, 2012 [facility] [place] [facility] [address] [id number] [place] [address]- 2266 Feb, [facility] [place] [facility] [address] [id number] [place] [address]- 7446 Jan, [facility] [place] [facility] [address] [id number] [place] [address]- 5797 Jan, [facility] [place] [facility] [address] [id number] [place] [address]- 5819 28 Jan, 2012 [facility] [place] [facility] [address] [id number] [place] [address]- 5166 Jan, [facility] [place] [facility] [address] [id number] [place] [address]- 5976 Jan, [facility] [place] [facility] [address] [id number] [place] [address]- 7756 Jan, [facility] [place] [facility] [address] [id number] [place] [address]- 0696 Jan, [facility] [place] [facility] [address] [id number] [place] [address]- 0283 Jan, [facility] [place] [facility] [address] [id number] [place] [address]- 1758 Jan, [facility] [place] [facility] [address] [facility] [id number] [place] [address]- 4897 Jan, [facility] [place] [facility] [address] [id number] [place] [address]- 7912 Jan, [facility] [place] [facility] [address] [id number] [place] [address]- 2320 Dec, [facility] [place] [facility] [address] [facility] [id number] [place] [address]- 3040 Dec, [facility] [place] [facility] [address] [id number] [place] [address] Dec, [facility] [place] [facility] [address] [id number] [place] [address]- 3895 Dec, [facility] [place] [facility] [address] [id number] [place] [address]- 2464 Nov, [facility] [place] [facility] [address] [facility] [id number] [place] [address]- 3400 Nov, [facility] [place] [facility] [address] [facility] [id number] [place] [address]- 4937 Nov, [facility] [place] [facility] [address] [id number] [place] [address]- 3460 27 Oct, 2011 [facility] [place] [facility] [address] [id number] [place] [address]- 2916 24 Oct, 2011 [facility] [place] [facility] [address] [id number] [place] [address]- 2256 21 Oct, 2011 [facility] [place] [facility] [address] [id number] [place] [address]- 5946 10 Oct, 2011 [facility] [place] [facility] [address] [id number] [place] [address] 7320 07 Oct, 2011 [facility] [place] [facility] [address] [id number] [place] [address]- 3315 04 Oct, 2011 [facility] [place] [facility] [address] [id number] [place] [address]- 1196 04 Oct, 2011 [facility] [place] [facility] [address] [id number] [place] [address]- 3175 29 Sep, 2011 [facility] [place] [facility] [address] [id number] [place] [address]- 0905 Sep, [facility] [place] [facility] [address] [id number] [place] [address]- 6636 Sep, [facility] [place] [facility] [address] [id number] [place] [address]- 7556 Sep, [facility] [place] [facility] [address] [id number] [place] [address]- 4290 Sep, [facility] [place] [facility] [address] [id number] [place] [address]- 7992 Aug, [facility] [place] [facility] [address] [id number] [place] [address]- 0035 Aug, [facility] [place] [facility] [address] [id number] [place] [address]- 9432 17 Aug, 2011 [facility] [place] [facility] [address] [id number] [place] [address]- 2546 16 Aug, 2011 [facility] [place] [facility] [address] [id number] [place] [address]- 2637 Aug, [facility] [place] [facility] [address] [id number] [place] [address] Aug, [facility] [place] [facility] [address] [id number] [place] [address]- 3535 Aug, [facility] [place] [facility] [address] [id number] [place] [address]- 0723 Jul, [facility] [place] [facility] [address] [id number] [place] [address]- 5778 Jul, [facility] [place] [facility] [address] [id number] [place] [address]- 2195 Jul, [facility] [place] [facility] [address] [id number] [place] [address]- 8374 Jul, [facility] [place] [facility] [address] [id number] [place] [address]- 0296 Jul, [facility] [place] [facility] [address] [id number] [place] [address]- 6346 Jul, [facility] [place] [facility] [address] [id number] [place] [address]- 2430 Jul, [facility] [place] [facility] [address] [id number] [place] [address]- 8097 Jul, [facility] [place] [facility] [address] [id number] [place] [address]- 9064 Jul, [facility] [place] [facility] [address] [id number] [place] [address]- 9793 June, [facility] [place] [facility] [address] [id number] [place] [address]- 4350 June, [facility] [place] [facility] [address] [id number] [place] [address]- 0812 June, [facility] [place] [facility] [address] [id number] [place] [address]- 4927 June, [facility] [address] [id number] [place] [address]- 1543 June, [facility] [address] [id number] [place] [address]- 7836 June, [facility] [address] [id number] [place] [address]- 9450 June, [facility] [address] [id number] [place] [address]- 9599 June, [facility] [address] [id number] [place] [address]- 4731 25 May, 2011 [facility] [address] [id number] [place] [address]- 5015 23 May, 2011 [facility] [address] [id number] [place] [address]- 3178 May, [facility] [address] [id number] [place] [address]- 6704 19 May, 2011 [facility] [address] [id number] [place] [address]- 1461 16 May, 2011 [facility] [address] [id number] [place] [address]- 0300 16 May, 2011 [facility] [address] [id number] [place] [address]- 7875 May, [facility] [address] [id number] [place] [address]- 3530 27 Apr, 2011 [facility] [address] [id number] [place] [address]- 3659 22 Apr, 2011 [facility] [address] [id number] [place] [address]- 5213 Apr, [facility] [address] [id number] [place] [address]- 2072 Apr, [facility] [address] [id number] [place] [address]- 4038 Apr, [facility] [place] [facility] [address] [id number] [place] [address]- 3126 Apr, [facility] [place] [facility] [address] [id number] [place] [address]- 3546 Apr, [facility] [place] [facility] [address] [id number] [place] [address]- 6330 Mar, [facility] [place] [facility] [address] [id number] [place] [address]- 9878 Mar, [facility] [place] [facility] [address] [id number] [place] [address]- 5042 14 Mar, 2011 [facility] [place] [facility] [address] [id number] [place] [address]- 4140 Mar, [facility] [place] [facility] [address] [id number] [place] [address]- 2529 Mar, [facility] [place] [facility] [address] [id number] [place] [address]- 3055 Mar, [facility] [place] [facility] [address] [id number] [place] [address]- 6158 Mar, [facility] [place] [facility] [address] [id number] [place] [address]- 3193 Feb, [facility] [place] [facility] [address] [id number] [place] [address]- 6197 Feb, [facility] [place] [facility] [address] [id number] [place] [address]- 4736 Feb, [facility] [place] [facility] [address] [id number] [place] [address]- 5617 Feb, [facility] [place] [facility] [address] [facility] [id number] [place] [address]- 1176 Feb, [facility] [place] [facility] [address] [id number] [place] [address]- 6330 Feb, [facility] [address] [id number] [place] [address]- 9174 Feb, [facility] [address] [id number] [place] [address]- 8546 Feb, [facility] [address] [id number] [place] [address]- 5103 Feb, [facility] [address] [id number] [place] [address]- 7115 Feb, [facility] [address] [id number] [place] [address]- 3574 Jan, [facility] [address] [id number] [place] [address]- 4058 Jan, [facility] [address] [id number] [place] [address]- 6631 Jan, [facility] [address] [id number] [place] [address]- 3019 Jan, [facility] [address] [id number] [place] [address]- 7580 Jan, [facility] [address] [id number] [place] [address]- 2643 Jan, [facility] [address] [id number] [place] [address] 2546 Jan, [facility] [address] [id number] [place] [address]- 2544 Jan, [facility] [address] [id number] [place] [address]- 8953 Jan, [facility] [address] [id number] [place] [address]- 9410 Jan, [facility] [address] [id number] [place] [address]- 7672 Jan, [facility] [place] [facility] [address] [id number] [place] [address]- 9801 Dec, [facility] [place] [facility] [address] [id number] [place] [address]- 8907 Dec, [facility] [place] [facility] [address] [id number] [place] [address]- 1056 Dec, [facility] [place] [facility] [address] [id number] [place] [address]- 8747 16 Dec, 2010 [facility] [place] [facility] [address] [id number] [place] [address]- 8425 14 Dec, 2010 [facility] [place] [facility] [address] [id number] [place] [address]- 7446 Dec, [facility] [place] [facility] [address] [id number] [place] [address]- 1134 Dec, [facility] [place] [facility] [address] [id number], [place] [address]- 2284 Dec, [facility] [place] [facility] [address] [id number] [place] [address]- 2427 Dec, [facility] [place] [facility] [address] [facility] [id number], [place] [address]- 4069 Nov, [facility] [place] [facility] [address] [id number], [place] [address]- 0032 Nov, [facility] [place] [facility] [address] [id number], [place] [address]- 8849 Nov, [facility] [place] [facility] [address] [id number], [place] [address]- 2901 Nov, [facility] [place] [facility] [address] [id number], [place] [address]- 8584 24 Nov, 2010 [facility] [place] [facility] [address] [id number], [place] [address]- 0494 13 Nov, 2010 [facility] [place] [facility] [address] [id number], [place] [address]- 6727 Aug, [facility] [id number], [place] [address]- 6140 Feb, [facility] [id number] [address] Jan, [facility] [id number] [address] Jan, [facility] [id number] [address] Jan, [facility] [id number] [place] [address]- 0039 Jan, [facility] [id number] [address]134 Jan, [facility] [id number], [place] [address]- 7910 Dec, [facility] [id number], [place] [address]- 8407 Dec, [facility] [id number], [place] [address]- 2680 Dec, [facility] [id number], [place] [address]- 0959 Dec, [facility] [address], [place] [address]- 0680 Nov, [facility] [address], [place] [address]- 6314 Nov, [facility] [id number] [address]66 Nov, IMMUNIZATIONS No Known Immunizations SOCIAL HISTORY Never Assessed REASON FOR VISIT Rash on right leg not improving- KALIE Murphy PLAN OF CARE Activity Details Follow Up 3 Months Reason: VITAL SIGNS Height 68 in 2017-01-31 Weight 196.1 lbs 2017-01-31 Temperature 98.2 degrees Fahrenheit 2017-01-31 Heart Rate 104 bpm 2017-01-31 Respiratory Rate 24 2017-01-31 BMI 29.81 kg/m2 2017-01-31 Blood pressure systolic 120 mmHg 2017-01-31 Blood pressure diastolic 82 mmHg 2017-01-31 MEDICATIONS Medication Instructions Dosage Frequency Start Date End Date Duration Status Aspirin 81 MG Orally Once a day 1 tablet 24h 30 Active Cyclobenzaprine HCl 10 MG TAKE ONE TABLET BY MOUTH THREE TIMES DAILY 30 Active Furosemide 20 MG Orally Once a day ONE TABLET 24h 30 Active Fluoxetine HCl 40 mg Orally Once a day 2 capsule in the morning 24h 30 Active Klonopin 1 MG Orally 3 times a day 1 tablet 8h 30 days Active Pantoprazole Sodium 40 mg Orally Once a day 1 tablet 24h 30 days Active Epclusa 400-100 MG Orally Once a day 1 tablet 24h 12 Weeks Not- Taking Lyrica 150 MG Orally 3 times a day 1 capsule 8h Active Clonidine HCl 0.1 MG Orally twice a day 1 tablet 12h 30 Active Sumatriptan Succinate 100 mg Orally Once a day 1 tablet as needed one time 24h 30 Active Fentanyl 50 MCG/HR Transdermal 72hrs 1 patch to skin Jan, 30 days Active Nabumetone 500 MG Orally Twice a day 1 tablet 12h 30 Active Lyrica 100 MG TAKE ONE CAPSULE BY MOUTH THREE TIMES DAILY 30 Unknown Promethazine HCl 25 MG Orally every 12 hrs 1 tablet as needed 12h 30 Active RESULTS Name Result Date Reference Range Xray : Hip, Left 2 views (IN HOUSE) 2017-01-31 PROCEDURES Procedure Date Ordered Result Body Site X-RAY EXAM HIP UNI 2-3 VIEWS Jan 31, 2017 INSTRUCTIONS MEDICATIONS ADMINISTERED No Known Medications [...]
--- OUTSIDE RECORDS SUMMARY | 2018-01-13 21:23 | XMS REPORT ---
Author Author WYATT SOTO Organization [facility] Address [address] [place] [address] Care Team Providers Care Loom Stop Checker Name Role Phone WYATT SOTO Unavailable PROBLEMS Type Condition ICD9-CM Code QZK77-OP Code Onset Dates Condition Status SNOMED Code Problem Left hip pain M25.552 Active 62591499 Problem Other chronic pain G89.29 Active 95321414 Problem Chronic hepatitis C without hepatic coma B18.2 Active 648620691 Problem Other obesity due to excess calories E66.09 Active 159662702 Problem Body mass index (BMI) of 34.0-34.9 in adult Z68.34 Active 234135662 Problem Other psychoactive substance dependence, 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 Active 0327080 Problem 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, 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 185564136 Problem Gastroesophageal reflux disease, esophagitis presence not specified K21.9 Active 685602574 Problem Venous insufficiency (chronic) (peripheral) I87.2 Active 578829542 Problem Unspecified episodic mood disorder F39 Active 14963374 Problem Hypertension I10 Active 29744268 Problem Combined drug dependence excluding opioids, 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 [id number] [address] Aug, [facility] [address] [address] Aug, Unspecified episodic mood disorder F39 [facility] [id number] [address] 8[address] Aug, [facility] [id number] [place] [address] 89078- 0187 Jul, Unspecified episodic mood disorder F39 [facility] [id number] [place] [address] 00210- 5041 Jul, [facility] [id number] [place] [address] 14487- 6881 Jul, Arthritis M19.90 [facility] [id number] [place] [address] 55557- 6205 Jul, Left hip pain M25.552 ; Hypertension I10 ; Other obesity due to excess calories E66.09 and Body mass index (BMI) of 34.0-34.9 in adult Z68.34 [facility] [id number] [place] [address] 81035- 9745 Jul, Unspecified episodic mood disorder F39 [facility] [id number] [place] [address] 69999- 7889 June, Gastroesophageal reflux disease, esophagitis presence not specified K21.9 [facility] [id number] [place] [address] 23417- 8068 June, [facility] [id number] [place] [address] 61332- 9581 June, [facility] [id number] [place] [address] 01758- 4209 June, Arthritis M19.90 [facility] [id number] [place] [address] 11799- 7803 June, [facility] [address] [address] 0192 June, [facility] [id number] [place] [address] 36090- 1423 June, Unspecified episodic mood disorder F39 [facility] [id number] [address] 7836 May, Unspecified episodic mood disorder F39 [facility] [id number] [place] [address] 64921- 0616 May, [place] [address] 30930- 2636 May, Arthritis M19.90 [facility] [id number] [place] [address] 13852 -0072 May, Dysuria R30.0 ; Abscess L02.91 and Acute cystitis without hematuria N30.00 [place] [id number] [place] [address] 72508- 1040 May, Other disorder of impulse control F63.89 ; Unspecified episodic mood disorder F39 ; Combined drug dependence excluding opioids, 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 ; Anxiety F41.9 and Other psychoactive substance dependence, 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 [place] [id number] [place] [address] 16889- 0517 May, [place] [id number] [place] [address] 72648- 3411 May, Other disorder of impulse control F63.89 ; Unspecified episodic mood disorder F39 ; Combined drug dependence excluding opioids, 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 ; Other psychoactive substance dependence, 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 and Anxiety F41.9 [place] [id number] [place] [address] 82741- 8711 May, Other chronic pain G89.29 ; Left hip pain M25.552 ; Hypertension I10 ; 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, 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 and Unspecified episodic mood disorder F39 [facility] [id number] [place] [address] 54421- 8473 Apr, [facility] [address] 84251 -8080 Apr, Neck pain M54.2 ; Left hip pain M25.552 and Fall, initial encounter W19.XXXA [place] [address] 77641- 5451 Apr, Unspecified episodic mood disorder F39 ; Combined drug dependence excluding opioids, 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 ; Anxiety F41.9 ; Other psychoactive substance dependence, 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 and Other disorder of impulse control F63.89 [facility] [id number], [place] [address] 1253 Apr, [facility] [id number] [place] [address] 98618- 5836 Apr, Arthritis M19.90 and Unspecified episodic mood disorder F39 [facility] [id number] [place] [address] 63559- 7732 Apr, Unspecified episodic mood disorder F39 [facility] [id number] [place] [address] 12030- 5889 Apr, [facility] [id number] [place] [address] 27240- 1493 Apr, [facility] [id number] [place] [address] 81029- 4565 Apr, Unspecified episodic mood disorder F39 ; Combined drug dependence excluding opioids, 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 ; Anxiety F41.9 ; Other psychoactive substance dependence, 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 and Other disorder of impulse control F63.89 [facility] [id number] [place] [address] 80553- 8129 Mar, Unspecified episodic mood disorder F39 [facility] [id number] [place] [address] 81550- 0080 Mar, Gastroesophageal reflux disease, esophagitis presence not specified K21.9 [facility] [id number] [place] [address] 72757- 5247 Mar, Arthritis M19.90 and Unspecified episodic mood disorder F39 [facility] [id number] [place] [address] 50527- 1623 Feb, [facility] [id number] [place] [address] 05450- 0614 Feb, [place] [id number] [place] [address] 02739- 1305 Feb, [place] [id number] [place] [address] 53126- 2563 Feb, Arthritis M19.90 [place] [address] 13395- 8670 Feb, Non-pressure chronic ulcer of right calf, 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 ; Unspecified episodic mood disorder F39 and Left hip pain M25.552 [place] [address] 49030- 4672 Feb, [place] [id number] [place] [address] 83027- 0045 Feb, [place] [address] 03653- 6138 Jan, Arthritis M19.90 [place] [id number] [place] [address] 53001- 5351 Jan, Left hip pain M25.552 and Non-pressure chronic ulcer of right calf, 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 [place] [id number] [place] [address] 87291- 1730 Jan, Chronic hepatitis C without hepatic coma B18.2 [place] [address] 27412- 8735 Jan, Encounter for immunization Z23 ; Venous insufficiency ( chronic) (peripheral) I87.2 ; Non-pressure chronic ulcer of unspecified calf limited to breakdown of skin L97.201 and Gastroesophageal reflux disease, esophagitis presence not specified K21.9 [place] [id number] [place] [address] 76740- 3344 Jan, [place] [address] 16951- 8691 Jan, Chronic hepatitis C without hepatic coma B18.2 and Encounter for immunization Z23 [facility] [id number] [place] [address] 36258- 6175 Jan, Arthritis M19.90 [facility] [id number] [place] [address] 15190- 5309 Jan, [facility] [id number] [place] [address] 97889- 7089 Dec, [facility] [id number] [place] [address] 06600- 5773 Dec, Unspecified episodic mood disorder F39 [facility] [id number] [place] [address] 39819- 3668 Dec, Arthritis M19.90 [facility] [id number] [place] [address] 81437- 7777 Dec, Arthritis M19.90 [facility] [id number] [place] [address] 94800- 1806 Nov, [facility] [id number] [place] [address] 36359- 6015 Nov, [facility] [id number] [place] [address] 29352- 6716 Nov, Other psychoactive substance dependence, 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 ; 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, 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 and Chronic hepatitis C without hepatic coma B18.2 [facility] [id number] [place] [address] 30407- 6741 Nov, Arthritis M19.90 [facility] [id number] [place] [address] 85564 -4678 Oct, Partial thickness burn of abdomen, initial encounter T21.22XA [facility] [id number] [place] [address] 47355- 4554 Oct, [facility] [id number] [place] [address] 47617- 9605 Sep, Arthritis M19.90 [facility] [id number] [place] [address] 93466- 7616 Sep, [facility] [id number] [place] [address] 05220- 2616 Sep, [facility] [id number] [place] [address] 80258- 3868 Sep, Unspecified episodic mood disorder F39 ; Chronic hepatitis C without hepatic coma B18.2 and Left hip pain M25.552 [facility] [id number] [place] [address] 60349- 2006 Sep, Arthritis M19.90 and Left hip pain M25.552 [facility] [id number] [place] [address] 23393- 8260 Aug, [facility] [id number] [place] [address] 64745- 1291 Aug, [facility] [id number] [place] [address] 10274- 0018 Aug, Chronic hepatitis C without hepatic coma B18.2 [facility] [id number] [place] [address] 15615- 4281 Aug, [facility] [id number] [place] [address] 46656- 5606 Aug, Chronic hepatitis C without hepatic coma B18.2 [facility] [id number] [address]- 6108 Aug, 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, 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 [facility] [id number] [place] [address] 96367- 1518 Aug, [facility] [id number] [address]- 3063 Aug, Chronic hepatitis C without hepatic coma B18.2 and Hypertension I10 [facility] [id number] [place] [address] 30219- 6827 Jul, [facility] [id number] [place] [address] 90288- 0499 June, [facility] [id number] [place] [address] 10694- 5056 Apr, Fibromyalgia M79.7 ; Left hip pain M25.552 and Decubitus ulcer of sacral region, stage 1 L89.151 [facility] [id number] [place] [address] 23016- 7087 Apr, [facility] [address] 78120- 5471 Apr, [facility] [id number] [place] [address] 86069- 0413 Feb, [facility] [id number] [place] [address] 61219- 7792 Dec, Anxiety F41.9 ; Combined drug dependence excluding opioids, 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 and Unspecified episodic mood disorder F39 [facility] [id number] [place] [address] 30367- 4045 Dec, [facility] [id number] [place] [address] 77591- 3228 18 Nov, 2015 [facility] [id number] [place] [address] 15187- 8678 11 Nov, 2015 [facility] [id number] [place] [address] 19014- 3049 10 Nov, 2015 Other disorder of impulse control F63.89 and Anxiety F41.9 [facility] [id number] [place] [address] 84436- 8474 21 Oct, 2015 [facility] [id number] [place] [address] 95050 -5730 14 Oct, 2015 Open wound of left thigh, initial encounter S71.102A [facility] [id number] [place] [address] 90645- 4244 Oct, [facility] [id number] [place] [address] 19725- 2247 Sep, Unspecified episodic mood disorder F39 ; Other disorder of impulse control 312.39 ; Combined drug dependence excluding opioids, 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 and Anxiety F41.9 [facility] [id number] [place] [address] 02395- 9424 Sep, Other disorder of impulse control 312.39 ; Combined drug dependence excluding opioids, 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 ; Anxiety F41.9 and Unspecified episodic mood disorder F39 [facility] [id number] [place] [address] 84299- 3032 Sep, Other chronic pain G89.29 [facility] [id number] [place] [address] 92515- 3705 Sep, [facility] [id number] [place] [address] 07288- 1950 Sep, [facility] [id number] [place] [address] 32954- 6041 Aug, [facility] [id number] [place] [address] 22098- 0998 Aug, [facility] [id number] [place] [address] 10446- 0309 Aug, [facility] [id number] [place] [address] 62514 2543 Jul, [facility] [id number] [place] [address] 76401- 4472 Jul, [facility] [id number] [place] [address] 92515- 0274 Jul, [facility] [id number] [place] [address] 98146- 4546 Jul, Arthritis M19.90 ; Chronic hepatitis C without hepatic coma B18.2 and Left hip pain M25.552 [facility] [id number] [place] [address] 62881- 5398 Jul, Left knee pain M25.562 [facility] [id number] [place] [address] 11065- 2821 Jul, Combined drug dependence excluding opioids, 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 ; Anxiety F41.9 ; Other disorder of impulse control 312.39 and Unspecified episodic mood disorder F39 [facility] [id number] [place] [address] 36557- 1827 Jul, Left knee pain M25.562 [facility] [id number] [place] [address] 37130- 0003 Jul, Left knee pain M25.562 and Left hip pain M25.552 [facility] [id number] [place] [address] 62749- 5595 Jul, [facility] [id number] [place] [address] 87093- 4531 June, [facility] [id number] [place] [address] 11736- 3851 June, Combinations of drug dependence excluding opioid type drug, unspecified abuse 304.80 ; Other disorder of impulse control 312.39 ; Unspecified episodic mood disorder F39 and Anxiety F41.9 [facility] [id number] [place] [address] 17452- 6567 June, Other fatigue R53.83 ; Headache R51 and Left knee pain M25.562 [facility] [id number] [place] [address] 25676- 7825 June, Unspecified episodic mood disorder F39 ; Combinations of drug dependence excluding opioid type drug, unspecified abuse 304.80 ; Other disorder of impulse control 312.39 and Anxiety F41.9 [facility] [id number] [place] [address] 43034- 8114 June, Anxiety F41.9 [facility] [id number] [place] [address] 25175- 1327 June, Pain in left knee M25.562 [facility] [id number] [place] [address] 89495- 2355 June, Anxiety F41.9 and Combinations of drug dependence excluding opioid type drug, unspecified abuse 304.80 [facility] [id number] [place] [address] 56296- 0237 June, Unspecified episodic mood disorder 296.90 ; Combinations of drug dependence excluding opioid type drug, unspecified abuse 304.80 and Other disorder of impulse control 312.39 [facility] [id number] [place] [address] 52652- 2988 June, Anxiety F41.9 and Unspecified episodic mood disorder 296.90 [facility] [id number] [place] [address] 86881- 6749 May, Arthritis M19.90 [facility] [id number] [place] [address] 08166- 5605 May, Arthritis M19.90 [facility] [id number] [place] [address] 10058- 9322 May, Anxiety F41.9 ; Combinations of drug dependence excluding opioid type drug, unspecified abuse 304.80 and Other disorder of impulse control 312.39 [facility] [id number] [place] [address] 46236- 0870 May, Left knee pain M25.562 [facility] [id number] [place] [address] 90415- 3940 14 May, 2015 Arthritis M19.90 [facility] [id number] [place] [address] 25567- 1377 May, [facility] [id number] [place] [address] 75610- 7512 May, Anxiety F41.9 ; Unspecified episodic mood disorder 296.90 ; Combinations of drug dependence excluding opioid type drug, unspecified abuse 304.80 and Other disorder of impulse control 312.39 [place] [id number] [place] [address] 29905- 5043 May, Left knee pain M25.562 [place] [id number] [place] [address] 43592- 3484 May, Left knee pain M25.562 ; Combinations of drug dependence excluding opioid type drug, unspecified abuse 304.80 ; Other disorder of impulse control 312.39 ; Fibromyalgia M79.7 ; Hypertension I10 ; Unspecified episodic mood disorder 296.90 and Left hip pain M25.552 [place] [id number] [place] [address] 71458- 1713 May, Unspecified episodic mood disorder 296.90 ; Other disorder of impulse control 312.39 ; Combinations of drug dependence excluding opioid type drug, unspecified abuse 304.80 and Anxiety F41.9 [place] [id number] [place] [address] 73687- 8107 May, Left knee pain M25.562 ; Combinations of drug dependence excluding opioid type drug, unspecified abuse 304.80 ; Other disorder of impulse control 312.39 ; Fibromyalgia M79.7 ; Hypertension I10 ; Unspecified episodic mood disorder 296.90 and Left hip pain M25.552 [place] [id number] [place] [address] 76994- 6411 May, Anxiety F41.9 ; Unspecified episodic mood disorder 296.90 ; Other disorder of impulse control 312.39 and Combinations of drug dependence excluding opioid type drug, unspecified abuse 304.80 [place] [id number] [place] [address] 75618- 3777 Apr, 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 and 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, implants and grafts, initial encounter T84.82XA [place] [id number] [place] [address] 87155- 8971 Apr, Anxiety F41.9 ; Unspecified episodic mood disorder 296.90 ; Combinations of drug dependence excluding opioid type drug, unspecified abuse 304.80 and Other disorder of impulse control 312.39 [facility] [address] [address]- 2757 25 Apr, 2015 Arthritis M19.90 [facility] [address] [address]- 3635 Apr, Anxiety F41.9 ; Unspecified episodic mood disorder 296.90 ; Combinations of drug dependence excluding opioid type drug, unspecified abuse 304.80 and Other disorder of impulse control 312.39 [facility] [address] [address]- 9502 17 Apr, 2015 Arthritis M19.90 [facility] [id number] [place] [address] 14394- 2425 15 Apr, 2015 [facility] [id number] [place] [address] 83745- 7363 15 Apr, 2015 [facility] [id number] [place] [address] 02448- 2347 Apr, Unspecified episodic mood disorder 296.90 ; Combinations of drug dependence excluding opioid type drug, unspecified abuse 304.80 ; Other disorder of impulse control 312.39 and Anxiety F41.9 [facility] [address] [address] -8606 Apr, Left knee pain M25.562 [facility] [address] [address]- 8541 Apr, [facility] [address] [address]- 9604 Mar, Unspecified episodic mood disorder 296.90 ; Anxiety F41.9 ; Other disorder of impulse control 312.39 and Combinations of drug dependence excluding opioid type drug, unspecified abuse 304.80 [facility] [address] [place] [address]- 4622 Mar, Hyperpigmentation L81.9 [facility] [id number] [place] [address] 54678- 3287 22 Mar, 2015 Arthritis M19.90 and Anxiety F41.[address] 84170- 0784 22 Mar, 2015 Unspecified episodic mood disorder F39 ; Combined drug dependence excluding opioids, 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 ; Other disorder of impulse control F63.89 and Anxiety F41.[address] 41919- 4020 12 Mar, 2015 Well woman exam Z01.419 ; Other fatigue R53.83 ; Hot flashes N95.1 ; Depression, unspecified depression type F32.9 and Body mass index (BMI) of 23.0-23.9 in adult Z68.[address] 90125- 9890 11 Mar, 2015 Unspecified episodic mood disorder 296.90 ; Other disorder of impulse control 312.39 and Anxiety F41.9 [place] [id number] [place] [address] 09678- 9643 11 Mar, 2015 Well woman exam Z01.419 [...] of breast Z12.39 and Limited mobility Z74.09 [id number] [place] [address] 54779- 1856 10 Mar, [address] 73039- 5781 Mar, [facility] [id number] [place] [address] 79262- 2619 Mar, [facility] [id number] [place] [address] 12678- 6128 Mar, Other specified complication of internal orthopedic prosthetic devices, implants and grafts, initial encounter T84.89XA ; Fibromyalgia M79.7 ; Hypertension I10 ; Anemia D64.9 ; Insomnia G47.00 ; Anxiety F41.9 ; Arthritis M19.90 and Migraine G43.909 [facility] [id number] [place] [address] 47661- 8186 Mar, [facility] [address] 39975- 1874 Feb, [facility] [address] 70868- 7340 Feb, Arthritis M19.90 and Anxiety F41.9 [facility] [id number] [place] [address] 21216- 2691 Feb, [facility] [id number] [place] [address] 01891- 2721 Feb, [facility] [id number] [place] [address] 96604- 4531 Feb, [facility] [id number] [place] [address] 06012- 4054 Feb, [facility] [id number] [place] [address] 26312- 3391 Feb, Anxiety F41.9 [facility] [address] 92242- 7708 Feb, [facility] [id number] [place] [address] 41952- 7556 Feb, [facility] [address] 78721- 7810 Feb, 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 and Fibromyalgia M79.7 [facility] [id number] [place] [address] 53252- 3857 Feb, [facility] [id number] [place] [address] 53229- 6205 Jan, [facility] [id number] [place] [address] 87456- 7934 Jan, [facility] [id number] [place] [address] 85194- 4933 Jan, [facility] [id number] [place] [address] 91209- 2128 Jan, [facility] [id number] [place] [address] 33345- 7713 Jan, [facility] [id number] [place] [address] 40802- 7806 Jan, [facility] [id number] [place] [address] 84710- 4487 Jan, [facility] [id number] [place] [address] 50835- 6069 Jan, [facility] [id number] [place] [address] 04755- 8663 Dec, [facility] [id number] [place] [address] 62832- 5520 Dec, Left knee pain M25.562 [facility] [id number] [place] [address] 44869- 1704 Dec, Left knee pain M25.562 [facility] [id number] [place] [address] 37468- 9131 Dec, Fibromyalgia M79.7 ; Hypertension I10 and Arthritis M19.90 [facility] [id number] [place] [address] 86261- 1565 Dec, [facility] [address] [facility] [id number], [place] [address]- 9276 Dec, [facility] [place] [facility] [address] [id number], [place] [address]- 7593 Dec, [facility] [place] [facility] [address] [facility] [id number] 5694 Dec, [facility] [place] [facility] [address] [facility] [id number] [place] [address] 17091- 5182 Nov, [facility] [place] [facility] [address] [facility] [id number] [place] [address]- 7805 Nov, [facility] [place] [facility] [address] [facility] [id number] [place] [address] 97596- 9457 Nov, [facility] [place] [facility] [id number] [place] [address] 59322- 7808 Nov, Hypertension I10 [facility] [place] [facility] [address] [facility] [id number], [place] [address]- 4814 23 Oct, 2014 [facility] [place] [facility] [address] [facility] [id number], [place] [address]- 2986 17 Oct, 2014 [facility] [place] [facility] [address] [id number], [place] [address]- 6882 Oct, [facility] [place] [facility] [id number], [place] [address]- 7853 Oct, [facility] [place] [facility] [address] [facility] [id number], [place] [address]- 7047 Oct, [facility] [place] [facility] [address] [facility] [id number], [place] [address]- 0667 Sep, [facility] [place] [facility] [address] [facility] [id number], [place] [address]- 3892 Sep, [facility] [place] [facility] [address] [facility] [id number], [place] [address]- 0882 Sep, Hip pain associated with recalled total hip arthroplasty hardware 996.77 [facility] [place] [facility] [address] [id number] [place] [address]- 3130 Sep, [facility] [place] [facility] [address] [id number] [place] [address]- 8824 Sep, [facility] [place] [facility] [address] [id number] [place] [address]- 2616 Sep, [facility] [place] [facility] [address] [id number] [place] [address]- 9815 Aug, [facility] [place] [facility] [address] [id number] [place] [address]- 0325 Jul, [facility] [place] [facility] [address] [id number] [place] [address]- 6777 June, [facility] [place] [facility] [address] [id number] [place] [address]- 0087 June, [facility] [place] [facility] [address] [id number] [place] [address]- 9319 June, [facility] [place] [facility] [address] [id number] [place] [address]- 6531 June, [facility] [place] [facility] [address] [id number] [place] [address]- 7210 June, [facility] [place] [facility] [address] [id number] [place] [address]- 8435 June, [facility] [place] [facility] [address] [id number] [place] [address]- 1717 May, [facility] [place] [facility] [address] [id number] [place] [address]- 2630 May, [facility] [place] [facility] [address] [id number] [place] [address]- 4208 May, [facility] [place] [facility] [address] [id number] [place] [address]- 7496 Apr, [facility] [place] [facility] [address] [id number], [place] [address]- 4475 30 Apr, 2014 [facility] [place] [facility] [address] [id number] [place] [address]- 8265 Apr, [facility] [place] [facility] [address] [id number] [place] [address]- 5118 Apr, [facility] [place] [facility] [address] [id number] [place] [address]- 6081 Apr, [facility] [place] [facility] [address] [id number] [place] [address]- 9799 13 Apr, 2014 [facility] [place] [facility] [address] [id number] [place] [address]- 1579 Apr, [facility] [place] [facility] [address] [id number] [place] [address]- 4209 Apr, [facility] [place] [facility] [address] [facility] [id number] [place] [address]- 8983 Apr, [facility] [place] [facility] [address] [id number] [place] [address]- 2403 Apr, [facility] [place] [facility] [address] [id number] [place] [address]- 1513 05 Apr, 2014 [facility] [place] [facility] [address] [facility] [id number] [place] [address]- 0998 Mar, 2014 [facility] [place] [facility] [address] [id number] [place] [address]- 6713 Mar, 2014 [facility] [place] [facility] [address] [id number] [place] [address]- 8133 Mar, 2014 [facility] [place] [facility] [address] [id number] [place] [address]- 1626 16 Mar, 2014 [facility] [place] [facility] [address] [id number] [place] [address]- 6779 Mar, 2014 [facility] [place] [facility] [address] [facility] [id number] [place] 0655 10 Fe2014 [facility] [place] [facility] [address] [id number] [place] [address]- 8933 Feb, [facility] [place] [facility] [address] [id number] [place] [address]- 3652 Feb, [facility] [place] [facility] [address] [id number] [place] [address]- 9207 Feb, [facility] [place] [facility] [address] [id number] [place] [address]- 1806 Feb, [facility] [place] [facility] [address] [id number] [place] [address]- 6533 Jan, [facility] [place] [facility] [address] [id number] [place] [address]- 0564 Jan, [facility] [place] [facility] [address] [id number] [place] [address]- 6477 Jan, [facility] [place] [facility] [address] [id number] [place] [address]- 2370 Jan, [facility] [place] [facility] [address] [id number] [place] [address]- 4809 Dec, [facility] [place] [facility] [address] [id number] [place] [address]- 1584 Dec, [facility] [place] [facility] [address] [id number] [place] [address]- 9589 Dec, [facility] [place] [facility] [address] [id number] [place] [address]- 1446 Dec, [facility] [place] [facility] [address] [id number] [place] [address]- 9434 Dec, [facility] [place] [facility] [address] [id number] [place] [address]- 6918 Dec, [facility] [place] [facility] [address] [id number] [place] [address]- 0695 Dec, [facility] [place] [facility] [address] [id number], [place] [address]- 6640 10 Dec, 2013 [facility] [place] [facility] [address] [id number] [place] [address]- 3887 10 Dec, 2013 [facility] [place] [facility] [address] [id number] [place] [address]- 9405 07 Dec, 2013 [facility] [place] [facility] [address] [id number] [place] [address]- 3979 07 Dec, 2013 [facility] [place] [facility] [address] [id number] [place] [address]- 8661 31 Nov, 2013 [facility] [place] [facility] [address] [id number] [place] [address]- 4148 28 Nov, 2013 [facility] [place] [facility] [address] [id number] [place] [address]- 1147 28 Nov, 2013 [facility] [place] [facility] [address] [id number] [place] [address]- 7501 17 Nov, 2013 [facility] [place] [facility] [address] [id number] [place] [address]- 5603 17 Nov, 2013 [facility] [place] [facility] [address] [id number] [place] [address]- 4068 15 Nov, 2013 [facility] [place] [facility] [address] [id number] [place] [address]- 3957 15 Nov, 2013 [facility] [place] [facility] [address] [id number], [place] [address]- 6478 15 Nov, 2013 [facility] [place] [facility] [address] [id number], [place] [address]- 3273 15 Nov, 2013 [facility] [place] [facility] [address] [id number] [place] [address]- 8676 14 Nov, 2013 [facility] [place] [facility] [address] [id number] [place] [address]- 6214 14 Nov, 2013 [facility] [place] [facility] [address] [id number], [place] [address]- 1192 14 Nov, 2013 [facility] [place] [facility] [address] [id number] [place] [address]- 1833 14 Nov, 2013 [facility] [place] [facility] [address] [id number] [place] [address]- 4861 13 Nov, 2013 [facility] [place] [facility] [address] [id number] [place] [address]- 3934 13 Nov, 2013 [facility] [place] [facility] [address] [id number] [place] [address]- 2382 11 Nov, 2013 [facility] [place] [facility] [address] [id number] [place] [address]- 6638 11 Nov, 2013 [facility] [place] [facility] [address] [id number] [place] [address]- 5122 07 Nov, 2013 [facility] [place] [facility] [address] [id number] [place] [address]- 5236 07 Nov, 2013 [facility] [place] [facility] [address] [id number] [place] [address]- 2020 07 Nov, 2013 [facility] [place] [facility] [address] [id number] [place] [address]- 3417 07 Nov, 2013 [facility] [place] [facility] [address] [id number] [place] [address]- 7207 30 Sep, 2013 [facility] [place] [facility] [address] [id number] [place] [address]- 8236 30 Sep, 2013 [facility] [place] [facility] [address] [id number] [place] [address]- 2548 26 Sep, 2013 [facility] [place] [facility] [address] [id number] [place] [address]- 2548 26 Sep, 2013 [facility] [place] [facility] [address] [id number] [place] [address]- 7614 22 Sep, 2013 [facility] [place] [facility] [address] [id number] [place] [address]- 2542 22 Sep, 2013 [facility] [place] [facility] [address] [id number] [place] [address]- 9141 18 Sep, 2013 [facility] [place] [facility] [address] [id number] [place] [address]- 5828 18 Oct, 2013 [facility] [place] [facility] [address] [id number] [place] [address]- 3263 Oct, [facility] [place] [facility] [address] [id number] [place] [address]- 0749 Oct, 2013 [facility] [place] [facility] [address] [id number] [place] [address]- 0901 Oct, 2013 [facility] [place] [facility] [address] [id number] [place] [address]- 6511 Oct, [facility] [place] [facility] [address] [id number] [place] [address]- 3076 Oct, [facility] [place] [facility] [address] [id number] [place] [address]- 5493 Oct, [facility] [place] [facility] [address] [id number] [place] [address]- 4328 Sep, [facility] [place] [facility] [address] [id number] [place] [address]- 5912 Sep, [facility] [place] [facility] [address] [id number] [place] [address]- 1011 Sep, [facility] [place] [facility] [address] [id number] [place] [address]- 8157 Sep, [facility] [place] [facility] [address] [id number] [place] [address]- 9330 Sep, [facility] [place] [facility] [address] [id number] [place] [address]- 7842 Sep, [facility] [place] [facility] [address] [id number] [place] [address]- 3693 Sep, [facility] [place] [facility] [address] [id number] [place] [address]- 4881 Sep, [facility] [place] [facility] [address] [id number] [place] [address]- 2181 Sep, [facility] [place] [facility] [address] [id number] [place] [address]- 3319 Sep, [facility] [place] [facility] [address] [id number] [place] [address]- 9814 Sep, [facility] [place] [facility] [address] [id number] [place] [address]- 2971 Sep, [facility] [place] [facility] [address] [id number] [place] [address]- 3229 Sep, [facility] [place] [facility] [address] [id number] [place] [address]- 0239 Sep, [facility] [place] [facility] [address] [id number] [place] [address]- 1714 Sep, [facility] [place] [facility] [address] [id number] [place] [address]- 8370 Sep, [facility] [place] [facility] [address] [id number] [place] [address]- 8934 Sep, [facility] [place] [facility] [address] [id number] [place] [address]- 2871 Sep, [facility] [place] [facility] [address] [id number] [place] [address]- 6177 Aug, [facility] [place] [facility] [address] [id number] [place] [address]- 6350 Aug, [facility] [place] [facility] [address] [id number] [place] [address]- 7318 Aug, [facility] [place] [facility] [address] [id number] [place] [address]- 1337 Aug, [facility] [place] [facility] [address] [id number] [place] [address]- 4758 Aug, [facility] [place] [facility] [address] [id number] [place] [address]- 7172 Aug, [facility] [place] [facility] [address] [id number] [place] [address]- 9605 Jul, [facility] [place] [facility] [address] [id number] [place] [address]- 5608 Jul, [facility] [place] [facility] [address] [id number] [place] [address]- 2866 Jul, [facility] [place] [facility] [address] [id number] [place] [address]- 2015 Jul, [facility] [place] [facility] [address] [id number] [place] [address]- 5645 June, [facility] [place] [facility] [address] [id number] [place] [address]- 0904 June, [facility] [place] [facility] [address] [id number] [place] [address]- 4154 June, [facility] [place] [facility] [address] [id number] [place] [address]- 9058 June, [facility] [place] [facility] [address] [id number] [place] [address]- 3249 June, [facility] [place] [facility] [address] [id number] [place] [address]- 4758 June, [facility] [place] [facility] [address] [id number] [place] [address]- 6078 June, [facility] [place] [facility] [address] [id number] [place] [address]- 7525 May, [facility] [place] [facility] [address] [id number] [place] [address]- 0246 May, [facility] [place] [facility] [address] [id number] [place] [address]- 3854 May, [facility] [place] [facility] [address] [id number] [place] [address]- 8375 May, [facility] [place] [facility] [address] [id number] [place] [address]- 9504 17 May, 2013 [facility] [place] [facility] [address] [id number] [place] [address]- 1055 17 May, 2013 [facility] [place] [facility] [address] [id number] [place] [address]- 3562 31 Apr, 2013 [facility] [place] [facility] [address] [id number] [place] [address]- 7288 31 Apr, 2013 [facility] [place] [facility] [address] [id number] [place] [address] 28 Apr, 2013 [facility] [place] [facility] [address] [id number] [place] [address] 28 Apr, 2013 [facility] [place] [facility] [address] [id number] [place] [address] 6[address] 14 Apr, 2013 [facility] [place] [facility] [address] [id number] [place] [address] 14 Apr, 2013 [facility] [place] [facility] [address] [id number] [place] [address] 12 Apr, 2013 [facility] [place] [facility] [address] [id number] [place] [address] 12 Apr, 2013 [facility] [place] [facility] [address] [id number] [place] [address] 9785 10 Apr, 2013 [facility] [place] [facility] [address] [id number] [place] [address]- 2507 10 Apr, 2013 [facility] [place] [facility] [address] [id number] [place] [address]- 6634 04 Apr, 2013 [facility] [place] [facility] [address] [id number] [place] [address] 377[address] 04 Apr, 2013 [facility] [place] [facility] [address] [id number] [place] [address] 03 Apr, 2013 [facility] [place] [facility] [address] [id number] [place] [address]- 5460 03 Apr, 2013 [facility] [place] [facility] [address] [id number] [place] [address] Mar, [facility] [address] [id number] [place] [address] 32[address] Mar, [facility] [address] [id number] [place] [address] 8066 Mar, [facility] [address] [id number] [place] [address]69 Feb, [facility] [address] [id number] [place] [address] 6860 Feb, [facility] [address] [id number] [place] [address] Feb, [facility] [address] [id number] [place] [address]56 Feb, [facility] [address] [id number] [place] [address]- 6598 Feb, [facility] [address] [id number] [place] [address] 3946 Feb, [facility] [address] [id number] [place] [address] 8159 Feb, [facility] [address] [id number] [place] [address] 8495 Feb, [facility] [address] [id number] [place] [address] 3[address] Feb, [facility] [address] [id number] [place] [address]- 1512 Feb, [facility] [place] [facility] [address] [id number] [place] [address] 3450 Jan, [facility] [place] [facility] [address] [id number] [place] [address]- 7796 Jan, [facility] [address] [id number] [place] [address]- 2473 Jan, [facility] [place] [facility] [address] [id number] [place] [address] Jan, [facility] [address] [id number] [place] [address]- 1067 Jan, [facility] [address] [id number] [place] [address] Jan, [facility] [address] [id number] [place] [address]- 6549 Jan, [facility] [address] [id number] [place] [address] Jan, [facility] [address] [id number] [place] [address]- 4376 Jan, [facility] [address] [id number] [place] [address] Jan, [facility] [address] [id number] [place] [address]- 0342 Jan, [facility] [address] [id number] [place] [address]- 6485 17 Jan, 2013 [facility] [address] [id number] [place] [address]- 8865 16 Jan, 2013 [facility] [address] [id number] [place] [address]- 7373 Jan, [facility] [place] [facility] [address] [id number], [place] [address]- [address] Jan, [facility] [place] [facility] [address] [id number] [place] [address]- 4179 Jan, [facility] [place] [facility] [address] [id number] [place] [address]- 0043 Jan, [facility] [place] [facility] [address] [id number] [place] [address]- [address] 05 Jan, 2013 [facility] [place] [facility] [address] [id number], [place] [address]- [address] Jan, [facility] [place] [facility] [address] [id number] [place] [address]- 3206 Jan, [facility] [place] [facility] [address] [id number], [place] [address]- [address] Jan, [facility] [place] [facility] [address] [id number] [place] [address]- 5503 Dec, [facility] [place] [facility] [address] [id number], [place] [address]- 3260 Dec, [facility] [place] [facility] [address] [id number] [place] [address]- 8342 Dec, [facility] [place] [facility] [address] [id number], [place] [address]- 239[address] Dec, [facility] [place] [facility] [address] [id number], [place] [address] Dec, [facility] [place] [facility] [address] [id number], [place] [address] Dec, [facility] [place] [facility] [address] [id number], [place] [address]- 3149 Dec, [facility] [place] [facility] [address] [id number], [place] [address]- 7044 Dec, [facility] [place] [facility] [address] [id number], [place] [address]- 5[address] Dec, [facility] [place] [facility] [address] [id number], [place] [address]- 2658 Dec, [facility] [place] [facility] [address] [id number], [place] [address]- 0[address] Nov, [facility] [place] [facility] [address] [id number], [place] [address] Nov, [facility] [place] [facility] [address] [id number], [place] [address]- 2954 18 Nov, 2012 [facility] [place] [facility] [address] [id number] [place] [address]- 4753 18 Nov, 2012 [facility] [place] [facility] [address] [id number] [place] [address]- 5869 Nov, [facility] [place] [facility] [address] [id number] [place] [address] Nov, 2012 [facility] [place] [facility] [address] [id number] [place] [address] Nov, 2012 [facility] [place] [facility] [address] [id number] [place] [address] Nov, [facility] [place] [facility] [address] [id number] [place] [address] Nov, [facility] [place] [facility] [address] [id number] [place] [address]- 0897 Nov, [facility] [place] [facility] [address] [id number] [place] [address] 2661 Oct, 2012 [facility] [place] [facility] [address] [id number] [place] [address]- 5016 Oct, [facility] [place] [facility] [address] [id number] [place] [address]- 0112 Oct, [facility] [place] [facility] [address] [id number] [place] [address]- 3657 25 Oct, 2012 [facility] [place] [facility] [address] [id number] [place] [address] 2543 Oct, [facility] [place] [facility] [address] [id number] [place] [address] 2544 Sep, [facility] [place] [facility] [address] [id number] [place] [address]- 0746 Sep, [facility] [place] [facility] [address] [id number] [place] [address] 2546 Aug, [facility] [place] [facility] [address] [id number] [place] [address] Aug, [facility] [address] [id number] [place] [address]- 7814 Aug, [facility] [address] [id number] [place] [address]- 0611 Aug, [facility] [address] [id number] [place] [address]- 0829 Aug, [facility] [address] [id number] [place] [address]- 3615 Aug, [facility] [address] [id number] [place] [address]- 9179 Aug, [facility] [address] [id number] [place] [address]- 5634 Jul, [facility] [address] [id number] [place] [address]- 1899 Jul, [facility] [address] [id number] [place] [address]- 6965 June, [facility] [address] [id number] [place] [address]- 8894 June, [facility] [address] [id number] [place] [address]- 7135 June, [facility] [place] [facility] [address] [id number] [place] [address]- 2964 June, [facility] [place] [facility] [address] [id number] [place] [address]- 8297 June, [facility] [place] [facility] [address] [id number] [place] [address]- 6729 June, [facility] [place] [facility] [address] [id number] [place] [address]- 1976 June, [facility] [place] [facility] [address] [id number] [place] [address]- 5115 June, [facility] [place] [facility] [address] [id number] [place] [address]- 6961 June, [facility] [address] [id number] [place] [address]- 3954 June, [facility] [address] [id number] [place] [address]- 5258 June, [facility] [address] [id number] [place] [address]- 4671 May, [facility] [place] [facility] [address] [id number] [place] [address]- 1714 May, [facility] [address] [id number] [place] [address]- 6540 May, [facility] [address] [id number] [place] [address]- 4689 May, [facility] [address] [id number] [place] [address]- 5109 Apr, [facility] [address] [id number] [place] [address]- 6313 Apr, [facility] [address] [id number] [place] [address]- 3024 Apr, [facility] [address] [id number] [place] [address]- 8473 Mar, [facility] [address] [id number] [place] [address]- 7025 Mar, [facility] [address] [id number] [place] [address]- 0675 Feb, [facility] [place] [facility] [address] [id number] [place] [address]- 2178 Feb, [facility] [place] [facility] [address] [id number] [place] [address]- 5266 Feb, [facility] [address] [id number] [place] [address]- 1326 Feb, [facility] [place] [facility] [address] [id number] [place] [address]- 4371 16 Feb, 2012 [facility] [address] [id number] [place] [address]- 3211 Feb, [facility] [address] [id number] [place] [address]- 5916 08 Feb, 2012 [facility] [address] [id number] [place] [address]- 9073 Jan, [facility] [address] [id number] [place] [address]- 0118 Jan, [facility] [address] [id number] [place] [address]- 1488 Jan, [facility] [address] [id number] [place] [address]- 1214 Jan, [facility] [address] [id number] [place] [address]- 9292 Jan, [facility] [address] [id number] [place] [address]- 9373 Jan, [facility] [address] [id number] [place] [address]- 5312 Jan, [facility] [address] [id number] [place] [address]- 8281 Jan, [facility] [address] [id number] [place] [address]- 8790 Jan, [facility] [address] [id number] [place] [address]- 9374 Jan, [facility] [place] [facility] [address] [id number] [place] [address]- 1749 Jan, [facility] [address] [id number] [place] [address]- 9753 19 Dec, 2011 [facility] [address] [id number] [place] [address]- 0235 Dec, [facility] [place] [facility] [address] [id number] [place] [address]- 9263 Dec, [facility] [place] [facility] [address] [id number] [place] [address]- 3476 Dec, [facility] [place] [facility] [address] [id number] [place] [address]- 6271 Nov, [facility] [place] [facility] [address] [id number] [place] [address]- 7976 Nov, [facility] [place] [facility] [address] [id number] [place] [address]- 1134 Nov, [facility] [place] [facility] [address] [id number] [place] [address]- 0415 Oct, [facility] [place] [facility] [address] [id number] [place] [address]- 5023 24 Oct, 2011 [facility] [place] [facility] [address] [id number] [place] [address]- 5005 21 Oct, 2011 [facility] [place] [facility] [address] [id number] [place] [address]- 8020 10 Oct, 2011 [facility] [place] [facility] [address] [id number] [place] [address]- 1417 07 Oct, 2011 [facility] [place] [facility] [address] [id number] [place] [address]- 8982 Oct, [facility] [place] [facility] [address] [id number] [place] [address]- 4596 Oct, [facility] [place] [facility] [address] [id number] [place] [address]- 0460 Sep, [facility] [place] [facility] [address] [id number] [place] [address]- 1761 Sep, [facility] [place] [facility] [address] [id number] [place] [address]- 2542 Sep, [facility] [place] [facility] [address] [id number] [place] [address]- 8625 Sep, [facility] [place] [facility] [address] [id number] [place] [address]- 3262 Sep, [facility] [place] [facility] [address] [id number] [place] [address]- 5606 30 Aug, 2011 [facility] [address] [id number] [place] [address]- 5616 Aug, [facility] [place] [facility] [address] [id number] [place] [address]- 7461 17 Aug, 2011 [facility] [address] [id number] [place] [address]- 2871 16 Aug, 2011 [facility] [place] [facility] [address] [id number] [place] [address]- 9446 Aug, [facility] [place] [facility] [address] [id number] [place] [address]- 1395 Aug, [facility] [address] [id number] [place] [address]- 1263 Aug, [facility] [place] [facility] [address] [id number] [place] [address]- 3612 Jul, [facility] [address] [id number] [place] [address]- 5222 Jul, [facility] [place] [facility] [address] [id number] [place] [address]- 9064 Jul, [facility] [place] [facility] [address] [id number] [place] [address]- 5009 Jul, [facility] [place] [facility] [address] [id number] [place] [address]- 2558 Jul, [facility] [place] [facility] [address] [id number] [place] [address]- 6503 Jul, [facility] [place] [facility] [address] [id number] [place] [address] Jul, [facility] [address] [id number] [place] [address]- 7914 Jul, [facility] [place] [facility] [address] [id number] [place] [address]- 0614 Jul, [facility] [place] [facility] [address] [id number] [place] [address]- 9067 June, [facility] [place] [facility] [address] [id number] [place] [address]- 1922 June, [facility] [place] [facility] [address] [id number] [place] [address]- 1562 June, [facility] [place] [facility] [address] [id number] [place] [address]- 5609 June, [facility] [place] [facility] [address] [id number] [place] [address]- 1446 June, [facility] [place] [facility] [address] [id number] [place] [address]- 6151 June, [facility] [place] [facility] [address] [id number] [place] [address]- 1753 June, [facility] [place] [facility] [address] [id number] [place] [address]- 8228 June, [facility] [place] [facility] [address] [id number] [place] [address]- 3833 May, [facility] [place] [facility] [address] [id number] [place] [address]- 1123 May, [facility] [place] [facility] [address] [id number] [place] [address]- 7932 May, [facility] [place] [facility] [address] [id number] [place] [address]- 2650 19 May, 2011 [facility] [place] [facility] [address] [id number] [place] [address]- 8815 16 May, 2011 [facility] [place] [facility] [address] [id number], [place] [address]- 5511 16 May, 2011 [facility] [place] [facility] [address] [id number] [place] [address]- 6886 02 May, 2011 [facility] [place] [facility] [address] [facility] [id number] [place] [address]- 8046 27 Apr, 2011 [facility] [place] [facility] [address] [facility] [id number] [place] [address]- 3416 Apr, [facility] [place] [facility] [address] [facility] [id number] [place] [address]- 7367 Apr, [facility] [place] [facility] [address] [facility] [id number] [place] [address]- 3751 Apr, [facility] [place] [facility] [address] [id number] [place] [address]- 8948 Apr, [facility] [place] [facility] [id number] [place] [address]- 1645 Apr, [facility] [place] [facility] [address] [id number] [place] [address]- 6719 Apr, [facility] [place] [facility] [address] [id number] [place] [address]- 0804 Mar, [facility] [place] [facility] [address] [id number] [place] [address]- 8120 Mar, [facility] [place] [facility] [id number] [place] [address]- 5416 14 Mar, 2011 [facility] [place] [facility] [address] [id number] [place] [address]- 2546 13 Mar, 2011 [facility] [place] [facility] [address] [id number] [place] [address]- 2276 09 Mar, 2011 [facility] [place] [facility] [address] [id number] [place] [address]- 5076 08 Mar, 2011 [facility] [place] [facility] [id number] [place] [address]- 7108 08 Mar, 2011 [facility] [address] [id number] [place] [address]- 3957 Feb, [facility] [address] [id number] [place] [address]- 1696 Feb, [facility] [place] [facility] [address] [id number] [place] [address]- 6711 Feb, [facility] [place] [facility] [address] [id number] [place] [address]- 2380 Feb, [facility] [address] [id number] [place] [address]- 5230 Feb, [facility] [address] [id number] [place] [address]- 9016 Feb, [facility] [address] [id number] [place] [address]- 5936 Feb, [facility] [address] [id number] [place] [address]- 8582 Feb, [facility] [address] [id number] [place] [address]- 1069 Feb, [facility] [address] [id number] [place] [address]- 1752 Feb, [facility] [address] [id number] [place] [address]- 0353 Jan, [facility] [place] [facility] [address] [id number], [place] [address]- 6641 Jan, [facility] [place] [facility] [address] [id number] [place] [address]- 7142 Jan, [facility] [place] [facility] [address] [id number] [place] [address]- 5447 Jan, [facility] [place] [facility] [address] [id number] [place] [address]- 5942 Jan, [facility] [place] [facility] [address] [id number], [place] [address]- 4639 Jan, [facility] [place] [facility] [address] [id number] [place] [address]- 8444 15 Jan, 2011 [facility] [place] [facility] [address] [id number] [place] [address]- 5053 15 Jan, 2011 [facility] [place] [facility] [address] [facility] [id number] [place] [address]- 5809 Jan, [facility] [place] [facility] [address] [id number] [place] [address]- 7850 Jan, [facility] [place] [facility] [address] [id number] [place] [address]- 1374 Jan, [facility] [place] [facility] [address] [facility] [id number] [place] [address]- 1744 Dec, [facility] [place] [facility] [address] [facility] [id number] [place] [address]- 7353 17 Dec, 2010 [facility] [place] [facility] [address] [facility] [id number] [place] [address]- 3003 17 Dec, 2010 [facility] [place] [facility] [address] [facility] [id number] [place] [address]- 3638 16 Dec, 2010 [facility] [place] [facility] [address] [facility] [id number] [place] [address]- 2985 14 Dec, 2010 [facility] [place] [facility] [address] [facility] [id number], [place] [address]- 2904 Dec, [facility] [place] [facility] [address] [facility] [id number], [place] [address]- 8944 08 Dec, 2010 [facility] [place] [facility] [address] [facility] [id number] [place] [address]- 9268 07 Dec, 2010 [facility] [place] [facility] [address] [facility] [id number] [place] [address]- 6812 02 Dec, 2010 [facility] [place] [facility] [address] [facility] [id number] [place] [address]- 6057 31 Nov, 2010 [facility] [place] [facility] [address] [id number] [place] [address]- 8308 31 Nov, 2010 [facility] [place] [facility] [address] [id number] [place] [address]- 4093 27 Nov, 2010 [facility] [place] [facility] [address] [id number] [place] [address]- 5942 24 Nov, 2010 [facility] [place] [facility] [address] [id number] [place] [address]- 1942 24 Nov, 2010 [facility] [place] [facility] [address] [id number] [place] [address]- 4125 Nov, [facility] [place] [facility] [address] [id number] [place] [address]- 1417 Aug, [facility] [place] [facility] [address] [id number] [place] [address]- 4221 14 Feb, 2010 [facility] [place] [facility] [address] [id number] [place] [address]- 8152 14 Jan, 2010 [facility] [place] [facility] [address] [id number] [place] [address]- 3578 Jan, [facility] [place] [facility] [address] [id number] [place] [address]- 1903 Jan, [facility] [place] [facility] [address] [id number] [place] 2537 Jan, [facility] [place] [facility] [address] [id number] [place] [address]- 1925 Jan, [facility] [place] [facility] [address] [id number] [place] [address]- 6395 Dec, [facility] [place] [facility] [address] [id number] [place] [address]- 3702 Dec, [facility] [place] [facility] [address] [id number] [place] [address]- 2756 Dec, [facility] [place] [facility] [address] [id number] [place] [address]- 1944 Dec, [facility] [address] [facility] [id number] [place] [address]- 5742 Nov, [facility] [address] [facility] [id number], [place] [address]- 2546 Nov, [facility] [address] [facility] [id number] [place] [address]- 2546 Nov, IMMUNIZATIONS No Known Immunizations SOCIAL HISTORY Never Assessed REASON FOR VISIT Lyrica, Fentanyl, and Klonopin- 04/03 PLAN OF CARE VITAL SIGNS MEDICATIONS Medication Instructions Dosage Frequency Start Date End Date Duration Status Fentanyl 50 MCG/HR Transdermal 72hrs 1 patch to skin Mar, 30 days Active Klonopin 1 MG Orally 3 times a day 1 tablet 8h 28 days Active Lyrica 150 MG Orally 3 [...]
--- OUTSIDE RECORDS SUMMARY | 2018-01-13 21:23 | XMS REPORT ---
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
--- OUTSIDE RECORDS SUMMARY | 2018-01-13 21:23 | XMS REPORT ---
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
--- OUTSIDE RECORDS SUMMARY | 2018-01-13 21:23 | XMS REPORT ---
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
--- OUTSIDE RECORDS SUMMARY | 2018-01-13 21:23 | XMS REPORT ---
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
--- OUTSIDE RECORDS SUMMARY | 2018-01-13 21:25 | XMS REPORT ---
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 Active 40005691 Problem Unspecified episodic mood disorder F39 Active 06896178 Problem Hypertension I10 Active 42226296 Problem Venous insufficiency (chronic) (peripheral) I87.2 Active 356581742 Problem Gastroesophageal reflux disease, esophagitis presence not specified K21.9 Active 253440664 Problem Other chronic pain G89.29 Active 62271531 Problem Chronic hepatitis C without hepatic coma B18.2 Active 600889515 Problem Other psychoactive substance dependence, uncomplicated F19.20 Active 6816961 Problem 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, 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 810659386 ALLERGIES No Information ENCOUNTERS Encounter Location Date Diagnosis [facility] [id number], [place] [address] June, [facility] [address] [place] [address] 29592- 7558 June, Arthritis M19.90 [facility] [address] [place] [address] 13382- 1966 June, [facility] [address] [place] [address] 95215- 9618 June, [facility] [address] [place] [address] 89234- 2331 June, Unspecified episodic mood disorder F39 [facility] [address], [place] [address] 288[address] May, Unspecified episodic mood disorder F39 [facility] [address] [place] [address] 36948- 3030 May, [facility] [id number] [place] [address] 15305- 8939 May, Arthritis M19.90 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 ; Anxiety F41.9 and Other psychoactive substance dependence, uncomplicated F19.20 [facility] [id number] [place] [address] 94104- 7357 May, [facility] [id number] [place] [address] 87003- 0299 May, 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 ; Unspecified episodic mood disorder F39 ; Combined drug dependence excluding opioids, 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 ; Other psychoactive substance dependence, uncomplicated F19.20 and Anxiety F41.9 [facility] [address] [place] [address] 11451- 2414 May, Other chronic pain G89.29 ; Left hip pain M25.552 ; Hypertension I10 ; 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, 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 and Unspecified episodic mood disorder F39 [facility] [address] [place] [address] 30276- 1818 Apr, [facility] [id number] [place] [address] 86112 -1679 Apr, Neck pain M54.2 ; Left hip pain M25.552 and Fall, initial encounter W19.XXXA [facility] [id number] [place] [address] 18761- 4243 Apr, Unspecified episodic mood disorder F39 ; Combined drug dependence excluding opioids, 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 ; Anxiety F41.9 ; Other psychoactive substance dependence, uncomplicated F19.20 and Other disorder of impulse control F63.89 [facility] [id number] [place] [address] 12960- 2311 Apr, [facility] [id number] [place] [address] 73837- 8873 Apr, Arthritis M19.90 and Unspecified episodic mood disorder F39 [facility] [id number] [place] [address] 96606- 2486 Apr, Unspecified episodic mood disorder F39 [facility] [id number] [place] [address] 57574- 0946 Apr, [facility] [id number] [place] [address] 92024- 2652 Apr, [facility] [id number] [place] [address] 74422- 1628 Apr, Unspecified episodic mood disorder F39 ; Combined drug dependence excluding opioids, 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 ; Anxiety F41.9 ; Other psychoactive substance dependence, uncomplicated F19.20 and Other disorder of impulse control F63.89 [facility] [address] [place] [address] 29479- 9643 Mar, Unspecified episodic mood disorder F39 [facility] [id number] [place] [address] 99975- 9124 Mar, Gastroesophageal reflux disease, esophagitis presence not specified K21.9 [facility] [id number] [place] [address] 17042- 5004 Mar, Arthritis M19.90 and Unspecified episodic mood disorder F39 [facility] [address] [place] [address] 09382- 0143 Feb, [facility] [id number] [place] [address] 54827 2546 Feb, [facility] [id number] [place] [address] 05289- 1726 Feb, [facility] [id number] [place] [address] 21903- 6417 Feb, Arthritis M19.90 [facility] [id number] [place] [address] 66837 2546 Feb, Non-pressure chronic ulcer of right calf, 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 ; Unspecified episodic mood disorder F39 and Left hip pain M25.552 [facility] [id number] [place] [address] 66153- 1901 Feb, [facility] [id number] [place] [address] 66394- 6092 Feb, [facility] [id number] [place] [address] 80632- 4497 Jan, Arthritis M19.90 [facility] [id number] [place] [address] 55459- 2338 Jan, Left hip pain M25.552 and Non-pressure chronic ulcer of right calf, 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 [facility] [address] [place] [address] 96265- 1972 Jan, Chronic hepatitis C without hepatic coma B18.2 [facility] [id number] [place] [address] 18233- 7643 Jan, Encounter for immunization Z23 ; Venous insufficiency ( chronic) (peripheral) I87.2 ; Non-pressure chronic ulcer of unspecified calf limited to breakdown of skin L97.201 and Gastroesophageal reflux disease, esophagitis presence not specified K21.9 [facility] [address] [place] [address] 98275- 0954 Jan, [facility] [id number] [place] [address] 63859- 0815 Jan, Chronic hepatitis C without hepatic coma B18.2 and Encounter for immunization Z23 [facility] [id number] [place] [address] 55417- 4595 Jan, Arthritis M19.90 [facility] [id number] [place] [address] 68638- 7825 Jan, [facility] [id number] [place] [address] 66039- 5137 Dec, [facility] [id number] [place] [address] 61566- 2733 Dec, Unspecified episodic mood disorder F39 [facility] [id number] [place] [address] 45467- 6603 Dec, Arthritis M19.90 [facility] [id number] [place] [address] 39001- 5446 Dec, Arthritis M19.90 [facility] [id number] [place] [address] 97495- 0636 Nov, [facility] [id number] [place] [address] 57988- 9943 Nov, [facility] [id number] [place] [address] 10179- 9657 Nov, Other psychoactive substance dependence, uncomplicated F19.20 ; 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, 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 and Chronic hepatitis C without hepatic coma B18.2 [facility] [id number] [place] [address] 26966- 5344 Nov, Arthritis M19.90 [facility] [address], [place] [address] Oct, Partial thickness burn of abdomen, initial encounter T21.22XA [facility] [address], [place] [address] 9419 Oct, [facility] [id number] [place] [address] 48390- 6036 Sep, Arthritis M19.90 [facility] [id number] [place] [address] 91739- 2636 Sep, [facility] [id number] [place] [address] 33177- 0997 Sep, [facility] [id number] [place] [address] 08590- 0125 Sep, Unspecified episodic mood disorder F39 ; Chronic hepatitis C without hepatic coma B18.2 and Left hip pain M25.552 [facility] [id number] [place] [address] 34581- 5206 Sep, Arthritis M19.90 and Left hip pain M25.552 [facility] [id number] [place] [address] 05110- 7833 Aug, [facility] [id number] [place] [address] 67062- 6673 Aug, [facility] [address] [place] [address] 57330- 6265 Aug, Chronic hepatitis C without hepatic coma B18.2 [facility] [address], [place] [address]- 0750 Aug, [facility] [id number] [place] [address] 73659- 0459 Aug, Chronic hepatitis C without hepatic coma B18.2 [facility] [id number] [place] [address] 04433- 8181 Aug, 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, 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 [facility] [id number] [place] [address] 88297- 0825 Aug, [facility] [address] [place] [address] 02633- 4759 Aug, Chronic hepatitis C without hepatic coma B18.2 and Hypertension I10 [facility] [id number] [place] [address] 71766- 9161 Jul, [facility] [id number] [place] [address] 42795- 2808 June, [facility] [id number] [place] [address] 89562- 1529 Apr, Fibromyalgia M79.7 ; Left hip pain M25.552 and Decubitus ulcer of sacral region, stage 1 L89.151 [facility] [id number] [place] [address] 77134- 3093 Apr, [facility] [id number] [place] [address] 79515- 9335 Apr, [facility] [id number] [place] [address] 80048- 7924 Feb, [facility] [id number] [place] [address] 59340- 8104 Dec, Anxiety F41.9 ; Combined drug dependence excluding opioids, 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 and Unspecified episodic mood disorder F39 [facility] [id number] [place] [address] 56564- 4661 Dec, [facility] [id number] [place] [address] 02735- 9809 Nov, [facility] [id number] [place] [address] 23265- 0628 Nov, [facility] [id number] [place] [address] 59969- 2443 Nov, Other disorder of impulse control F63.89 and Anxiety F41.9 [facility] [id number] [place] [address] 70435- 4747 Oct, [facility] [address], [place] [address] 14 Oct, 2015 Open wound of left thigh, initial encounter S71.102A [facility] [id number] [place] [address] 86749- 8713 Oct, [facility] [address] [place] [address] 78186- 0517 Sep, Unspecified episodic mood disorder F39 ; Other disorder of impulse control 312.39 ; Combined drug dependence excluding opioids, 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 and Anxiety F41.9 [facility] [id number] [place] [address] 53214- 7106 Sep, Other disorder of impulse control 312.39 ; Combined drug dependence excluding opioids, 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 ; Anxiety F41.9 and Unspecified episodic mood disorder F39 [facility] [id number] [place] [address] 12116- 3794 Sep, Other chronic pain G89.29 [facility] [id number] [place] [address] 80279- 3657 Sep, [facility] [id number] [place] [address] 82231- 2454 Sep, [facility] [address] [place] [address] 17618- 2941 Aug, [facility] [id number] [place] [address] 48083- 2239 Aug, [facility] [id number] [place] [address] 39137- 9461 Aug, [facility] [id number] [place] [address] 04966- 7333 Jul, [facility] [id number] [place] [address] 71897- 7027 Jul, [facility] [id number] [place] [address] 79244- 5626 Jul, [facility] [id number] [place] [address] 23350- 4749 17 Jul, 2015 Arthritis M19.90 ; Chronic hepatitis C without hepatic coma B18.2 and Left hip pain M25.552 [facility] [id number] [place] [address] 67481- 3791 Jul, Left knee pain M25.562 [facility] [id number] [place] [address] 58831- 5433 Jul, Combined drug dependence excluding opioids, 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 ; Anxiety F41.9 ; Other disorder of impulse control 312.39 and Unspecified episodic mood disorder F39 [facility] [id number] [place] [address] 13182- 8374 Jul, Left knee pain M25.562 [facility] [address] 70882- 3083 Jul, Left knee pain M25.562 and Left hip pain M25.552 [facility] [id number] [place] [address] 14618- 2855 Jul, [facility] [id number] [place] [address] 26100- 3050 June, [facility] [id number] [place] [address] 06227- 0297 June, Combinations of drug dependence excluding opioid type drug, unspecified abuse 304.80 ; Other disorder of impulse control 312.39 ; Unspecified episodic mood disorder F39 and Anxiety F41.9 [facility] [id number] [place] [address] 43697- 4117 June, Other fatigue R53.83 ; Headache R51 and Left knee pain M25.562 [facility] [id number] [place] [address] 27091- 7880 June, Unspecified episodic mood disorder F39 ; Combinations of drug dependence excluding opioid type drug, unspecified abuse 304.80 ; Other disorder of impulse control 312.39 and Anxiety F41.9 [facility] [address], [place] [address]- 3467 June, Anxiety F41.9 [facility] [id number] [place] [address] 42345- 9591 June, Pain in left knee M25.562 [facility] [id number] [place] [address] 55545- 2563 June, Anxiety F41.9 and Combinations of drug dependence excluding opioid type drug, unspecified abuse 304.80 [facility] [id number] [place] [address] 08295- 5708 June, Unspecified episodic mood disorder 296.90 ; Combinations of drug dependence excluding opioid type drug, unspecified abuse 304.80 and Other disorder of impulse control 312.39 [facility] [id number] [place] [address] 97313- 3216 June, Anxiety F41.9 and Unspecified episodic mood disorder 296.90 [facility] [address] [place] [address] 82077- 7243 May, Arthritis M19.90 [facility] [id number] [place] [address] 05488- 2904 May, Arthritis M19.90 [facility] [address] [place] [address] 05568- 7734 May, Anxiety F41.9 ; Combinations of drug dependence excluding opioid type drug, unspecified abuse 304.80 and Other disorder of impulse control 312.39 [facility] [address] [place] [address] 42625- 5747 May, Left knee pain M25.562 [facility] [id number] [place] [address] 31573- 3471 May, Arthritis M19.90 [facility] [id number] [place] [address] 43390- 9945 May, [facility] [address], [place] [address]- 5543 May, Anxiety F41.9 ; Unspecified episodic mood disorder 296.90 ; Combinations of drug dependence excluding opioid type drug, unspecified abuse 304.80 and Other disorder of impulse control 312.39 [facility] [address] [place] [address] 14296- 1772 May, Left knee pain M25.562 [facility] [id number] [place] [address] 91949- 0960 May, Left knee pain M25.562 ; Combinations of drug dependence excluding opioid type drug, unspecified abuse 304.80 ; Other disorder of impulse control 312.39 ; Fibromyalgia M79.7 ; Hypertension I10 ; Unspecified episodic mood disorder 296.90 and Left hip pain M25.552 [facility] [id number] [place] [address] 83738- 9575 May, Unspecified episodic mood disorder 296.90 ; Other disorder of impulse control 312.39 ; Combinations of drug dependence excluding opioid type drug, unspecified abuse 304.80 and Anxiety F41.9 [facility] [address] [place] [address] 96104- 7968 May, Left knee pain M25.562 ; Combinations of drug dependence excluding opioid type drug, unspecified abuse 304.80 ; Other disorder of impulse control 312.39 ; Fibromyalgia M79.7 ; Hypertension I10 ; Unspecified episodic mood disorder 296.90 and Left hip pain M25.552 [facility] [address] [place] [address] 69072- 9103 May, Anxiety F41.9 ; Unspecified episodic mood disorder 296.90 ; Other disorder of impulse control 312.39 and Combinations of drug dependence excluding opioid type drug, unspecified abuse 304.80 [facility] [address], [place] [address]- 7972 Apr, 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 and 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, implants and grafts, initial encounter T84.82XA [facility] [address], [place] [address]- 9053 28 Apr, 2015 Anxiety F41.9 ; Unspecified episodic mood disorder 296.90 ; Combinations of drug dependence excluding opioid type drug, unspecified abuse 304.80 and Other disorder of impulse control 312.39 [facility] [id number] [place] [address] 06724- 4737 25 Apr, 2015 Arthritis M19.90 [facility] [id number] [place] [address] 85592- 7839 21 Apr, 2015 Anxiety F41.9 ; Unspecified episodic mood disorder 296.90 ; Combinations of drug dependence excluding opioid type drug, unspecified abuse 304.80 and Other disorder of impulse control 312.39 [facility] [id number] [place] [address] 32983- 6442 17 Apr, 2015 Arthritis M19.90 [facility] [id number] [place] [address] 14008- 8566 15 Apr, 2015 [facility] [id number] [place] [address] 11224- 8644 15 Apr, 2015 [facility] [id number] [place] [address] 60596- 4913 14 Apr, 2015 Unspecified episodic mood disorder 296.90 ; Combinations of drug dependence excluding opioid type drug, unspecified abuse 304.80 ; Other disorder of impulse control 312.39 and Anxiety F41.9 [facility] [address] [place] [address] 48165 -0424 11 Apr, 2015 Left knee pain M25.562 [facility] [id number] [place] [address] 36250- 8998 11 Apr, 2015 [facility] [id number] [place] [address] 74262- 6567 29 Mar, 2015 Unspecified episodic mood disorder 296.90 ; Anxiety F41.9 ; Other disorder of impulse control 312.39 and Combinations of drug dependence excluding opioid type drug, unspecified abuse 304.80 [facility] [address] [place] [address] 74147- 5812 Mar, Hyperpigmentation L81.9 [facility] [id number] [place] [address]- 4652 Mar, Arthritis M19.90 and Anxiety F41.[address] 962627- 9770 Mar, Unspecified episodic mood disorder F39 ; Combined drug dependence excluding opioids, 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 ; Other disorder of impulse control F63.89 and Anxiety F41.[address] [address]- 1981 12 Mar, 2015 Well woman exam Z01.419 ; Other fatigue R53.83 ; Hot flashes N95.1 ; Depression, unspecified depression type F32.9 and Body mass index (BMI) of 23.0-23.9 in adult Z68.23 [facility] [id number] [place] [address] 54499- 6583 11 Mar, 2015 Unspecified episodic mood disorder 296.90 ; Other disorder of impulse control 312.39 and Anxiety F41.9 [facility] [id number] [place] [address] 03575- 6937 11 Mar, 2015 Well woman exam Z01.419 [...] of breast Z12.39 and Limited mobility Z74.09 [facility] [address] 84187- 3781 Mar, [facility] [address] 16100- 4199 Mar, [facility] [address] 10366- 9034 Mar, [facility] [address] 41373- 0340 Mar, Other specified complication of internal orthopedic prosthetic devices, implants and grafts, initial encounter T84.89XA ; Fibromyalgia M79.7 ; Hypertension I10 ; Anemia D64.9 ; Insomnia G47.00 ; Anxiety F41.9 ; Arthritis M19.90 and Migraine G43.909 [facility] [address] 90073- 3559 Mar, [facility] [address] 48153- 8056 Feb, [facility] [address] 70187- 5668 Feb, Arthritis M19.90 and Anxiety F41.9 [facility] [address] 78269- 3544 Feb, [facility] [address] [address] Feb, [facility] [address] [address] Feb, [place] [address] [address] Feb, [facility] [address] [address] Feb, Anxiety F41.9 [place] [address] [address]- [address] Feb, [facility] [id number] [address] Feb, [facility] [address] [place] [id number] [place] [address]- [address] Feb, 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 and Fibromyalgia M79.7 [facility] [address] [place] [id number] [place] [address]- 2664 Feb, [facility] [address] [place] [id number] [place] [address]- [address] Jan, [facility] [id number] [place] [address]- 4[address] Jan, [facility] [address] [place] [id number] [place] [address]- [address]295 Jan, [facility] [id number] [place] [address]- [address]995 Jan, [facility] [id number], [place] [address] Jan, [facility] [facility] [id number] [place] [address] 97324- 3617 Jan, [facility] [id number], [place] [address] 96[address] Jan, [facility] [id number], [place] [address] 3458 Jan, [facility] [id number], [place] [address] 6[address] Dec, [facility] [id number] [place] [address] 41036- 7338 Dec, Left knee pain M25.562 [facility] [id number], [place] [address] 6116 Dec, Left knee pain M25.562 [facility] [id number] [place] [address] 31189- 2098 16 Dec, 2014 Fibromyalgia M79.7 ; Hypertension I10 and Arthritis M19.90 [facility] [id number] [place] [address] 82192- 2672 Dec, [facility] [id number] [place] [address] 55346- 0157 Dec, [facility] [id number] [place] [address] 21208- 5995 Dec, [facility] [id number] [place] [address] 24907- 7959 Dec, [facility] [id number] [place] [address] 69984- 2153 Nov, [facility] [id number] [place] [address] 13118- 3297 Nov, [facility] [id number] [place] [address] 28726- 6808 Nov, [facility] [id number] [place] [address] 61906- 4619 Nov, Hypertension I10 [facility] [id number] [place] [address] 17930- 7064 23 Oct, 2014 [facility] [address], [place] [address] 2959 17 Sep, 2014 [facility] [id number] [place] [address] 42824- 4449 04 Sep, 2014 [facility] [id number] [place] [address] 62802- 3607 04 Sep, 2014 [facility] [id number] [place] [address] 74452- 8028 03 Oct, 2014 [facility] [address], [place] [address]- 1244 Sep, [facility] [id number] [place] [address] 33762- 1076 Sep, [facility] [address] [id number] [place] [address]- 6116 Sep, Hip pain associated with recalled total hip arthroplasty hardware 996.77 [facility] [address] [id number] [place] [address] 2546 Sep, [facility] [address] [id number] [place] [address]- 1856 Sep, [facility] [address] [id number] [place] [address]- 8715 Sep, [facility] [address] [id number] [place] [address]- 7134 Aug, [facility] [address] [id number] [place] [address]- 1635 Jul, [facility] [address] [id number] [place] [address]- 1461 June, [facility] [address] [id number] [place] [address]- 1616 June, [facility] [address] [id number] [place] [address]- 3377 June, [facility] [address] [facility] [id number] [address]- 6193 June, [facility] [address] [id number] [place] [address]- 3986 June, [facility] [address] [id number], [place] [address]- 7516 June, [facility] [address] [id number] [place] [address]- 0509 May, [facility] [address] [id number] [place] [address]- 9106 May, [facility] [address] [id number], [place] [address]- 1340 May, [facility] [place] [facility] [address] [id number] [place] [address]- 2067 30 Apr, 2014 [facility] [place] [facility] [address] [id number] [place] [address]- 5836 30 Apr, 2014 [facility] [place] [facility] [address] [id number] [place] [address]- 4789 Apr, [facility] [place] [facility] [address] [id number] [place] [address]- 8972 Apr, [facility] [place] [facility] [address] [id number] [place] [address]- 9532 Apr, [facility] [place] [facility] [address] [id number] [place] [address]- 5890 Apr, [facility] [place] [facility] [address] [id number] [place] [address]- 3695 Apr, [facility] [place] [facility] [address] [id number] [place] [address]- 0014 Apr, [facility] [place] [facility] [address] [id number] [place] [address]- 0677 Apr, [facility] [place] [facility] [address] [id number] [place] [address]- 3474 Apr, [facility] [place] [facility] [address] [id number] [place] [address]- 6725 Apr, [facility] [place] [facility] [address] [id number] [place] [address]- 1852 Mar, [facility] [place] [facility] [address] [id number] [place] [address]- 9508 Mar, [facility] [place] [facility] [address] [id number] [place] [address]- 4776 Mar, [facility] [place] [facility] [address] [id number] [place] [address]- 1728 Mar, [facility] [place] [facility] [address] [id number] [place] [address]- 9079 10 Mar, 2014 [facility] [address] [id number] [place] [address]- 3377 10 Mar, 2014 [facility] [address] [id number] [place] [address]- 4493 15 Feb, 2014 [facility] [address] [id number] [place] [address]- 4698 Feb, [facility] [address] [id number] [place] [address]- 0366 Feb, [facility] [address] [id number] [place] [address]- 3994 Feb, [facility] [address] [id number] [place] [address]- 8410 Jan, [facility] [address] [id number] [place] [address]- 1771 Jan, [facility] [address] [id number] [place] [address]- 1500 Jan, [facility] [address] [id number] [place] [address]- 8111 Jan, [facility] [address] [id number] [place] [address]- 6268 Dec, [facility] [place] [facility] [address] [id number] [place] [address]- 6232 Dec, [facility] [place] [facility] [address] [id number] [place] [address]- 0470 Dec, [facility] [place] [facility] [address] [id number] [place] [address]- 9913 Dec, [facility] [place] [facility] [address] [id number] [place] [address]- 1179 Dec, [facility] [place] [facility] [address] [id number] [place] [address]- 9610 Dec, [facility] [place] [facility] [address] [id number] [place] [address]- 3735 Dec, [facility] [place] [facility] [address] [id number] [place] [address]- 6160 Dec, [facility] [place] [facility] [address] [id number] [place] [address]- 7418 Dec, [facility] [place] [facility] [address] [id number] [place] [address]- 2151 Dec, [facility] [place] [facility] [address] [id number] [place] [address]- 1626 Dec, [facility] [place] [facility] [address] [id number] [place] [address]- 2703 31 Nov, 2013 [facility] [place] [facility] [address] [id number] [place] [address]- 7680 28 Nov, 2013 [facility] [place] [facility] [address] [id number] [place] [address]- 2641 28 Nov, 2013 [facility] [place] [facility] [address] [id number] [place] [address]- 3503 17 Nov, 2013 [facility] [place] [facility] [address] [id number] [place] [address]- 6139 17 Nov, 2013 [facility] [place] [facility] [address] [id number] [place] [address]- 1413 15 Nov, 2013 [facility] [place] [facility] [address] [id number], [place] [address]- 4737 15 Nov, 2013 [facility] [place] [facility] [address] [id number] [place] [address]- 7059 15 Nov, 2013 [facility] [place] [facility] [address] [id number] [place] [address]- 5898 15 Nov, 2013 [facility] [place] [facility] [address] [id number], [place] [address]- 3383 14 Nov, 2013 [facility] [place] [facility] [address] [id number], [place] [address]- 5293 14 Nov, 2013 [facility] [place] [facility] [address] [id number] [place] [address]- 7376 14 Nov, 2013 [facility] [place] [facility] [address] [id number] [place] [address]- 6083 14 Nov, 2013 [facility] [place] [facility] [address] [id number] [place] [address]- 5954 13 Nov, 2013 [facility] [place] [facility] [address] [id number] [place] [address]- 8163 13 Nov, 2013 [facility] [place] [facility] [address] [id number] [place] [address]- 3314 11 Nov, 2013 [facility] [place] [facility] [address] [id number] [place] [address]- 1091 11 Nov, 2013 [facility] [place] [facility] [address] [id number] [place] [address]- 9131 07 Nov, 2013 [facility] [place] [facility] [address] [id number] [place] [address]- 3656 07 Nov, 2013 [facility] [place] [facility] [address] [id number] [place] [address]- 4876 07 Nov, 2013 [facility] [place] [facility] [address] [id number] [place] [address]- 5841 07 Nov, 2013 [facility] [place] [facility] [address] [id number], [place] [address]- 0475 30 Sep, 2013 [facility] [place] [facility] [address] [id number], [place] [address]- 0987 30 Sep, 2013 [facility] [place] [facility] [address] [id number] [place] [address]- 0586 26 Sep, 2013 [facility] [place] [facility] [address] [id number] [place] [address]- 7706 26 Sep, 2013 [facility] [place] [facility] [address] [id number] [place] [address]- 6491 22 Oct, 2013 [facility] [place] [facility] [address] [id number] [place] [address]- 5713 22 Oct, 2013 [facility] [place] [facility] [address] [id number] [place] [address]- 0401 18 Oct, 2013 [facility] [place] [facility] [address] [id number] [place] [address]- 2540 18 Oct, 2013 [facility] [place] [facility] [address] [id number] [place] [address]- 9451 Oct, 2013 [facility] [place] [facility] [address] [id number] [place] [address]- 9332 18 Oct, 2013 [facility] [place] [facility] [address] [id number] [place] [address]- 2379 Oct, 2013 [facility] [place] [facility] [address] [id number] [place] [address]- 6151 Oct, 2013 [facility] [place] [facility] [address] [id number] [place] [address]- 1551 Oct, 2013 [facility] [place] [facility] [address] [id number] [place] [address]- 7451 Oct, [facility] [place] [facility] [address] [id number] [place] [address]- 8151 Sep, [facility] [place] [facility] [address] [id number] [place] [address]- 1902 Sep, [facility] [place] [facility] [address] [id number] [place] [address]- 0920 Sep, [facility] [place] [facility] [address] [id number] [place] [address]- 4849 Sep, [facility] [place] [facility] [address] [id number] [place] [address]- 7302 Sep, [facility] [place] [facility] [address] [id number] [place] [address]- 4400 Sep, [facility] [place] [facility] [address] [id number] [place] [address]- 2281 Sep, [facility] [place] [facility] [address] [id number] [place] [address]- 6892 Sep, [facility] [place] [facility] [address] [id number] [place] [address]- 4280 Sep, [facility] [place] [facility] [address] [id number] [place] [address]- 2647 Sep, [facility] [place] [facility] [address] [id number] [place] [address]- 8931 Sep, [facility] [place] [facility] [address] [id number] [place] [address]- 6887 Sep, [facility] [place] [facility] [address] [id number] [place] [address]- 8013 Sep, [facility] [place] [facility] [address] [id number] [place] [address]- 0466 Sep, [facility] [place] [facility] [address] [id number] [place] [address]- 3993 Sep, [facility] [place] [facility] [address] [id number] [place] [address]- 6925 Sep, [facility] [place] [facility] [address] [id number] [place] [address]- 0650 Sep, [facility] [place] [facility] [address] [id number] [place] [address]- 7723 Sep, [facility] [place] [facility] [address] [id number] [place] [address]- 3257 Aug, [facility] [place] [facility] [address] [id number] [place] [address]- 0247 Aug, [facility] [place] [facility] [address] [id number] [place] [address]- 9518 Aug, [facility] [place] [facility] [address] [id number] [place] [address]- 4918 Aug, [facility] [place] [facility] [address] [id number] [place] [address]- 0170 Aug, [facility] [place] [facility] [address] [id number] [place] [address]- 3311 Aug, [facility] [place] [facility] [address] [id number] [place] [address]- 2797 Jul, [facility] [place] [facility] [address] [id number] [place] [address]- 2054 Jul, [facility] [place] [facility] [address] [id number] [place] [address]- 2469 Jul, [facility] [place] [facility] [address] [id number] [place] [address]- 3433 Jul, [facility] [place] [facility] [address] [id number] [place] [address]- 8774 June, [facility] [place] [facility] [address] [id number] [place] [address]- 7965 June, [facility] [place] [facility] [address] [id number] [place] [address]- 2016 June, [facility] [place] [facility] [address] [id number] [place] [address]- 7346 June, [facility] [place] [facility] [address] [id number] [place] [address]- 0502 June, [facility] [place] [facility] [address] [id number] [place] [address]- 3007 June, [facility] [place] [facility] [address] [id number] [place] [address]- 4608 June, [facility] [place] [facility] [address] [id number] [place] [address]- 4542 May, [facility] [place] [facility] [address] [id number] [place] [address]- 8366 May, [facility] [place] [facility] [address] [id number] [place] [address]- 5680 May, [facility] [place] [facility] [address] [id number] [place] [address]- 9730 28 May, 2013 [facility] [place] [facility] [address] [id number] [place] [address]- 0612 May, [facility] [place] [facility] [address] [id number] [place] [address]- 4406 May, [facility] [place] [facility] [address] [id number] [place] [address]- 0615 31 Apr, 2013 [facility] [place] [facility] [address] [id number] [place] [address]- 7009 31 Apr, 2013 [facility] [place] [facility] [address] [id number] [place] [address]- 8989 Apr, [facility] [place] [facility] [address] [id number] [place] [address]- 7973 Apr, [facility] [place] [facility] [address] [id number] [place] [address]- 7121 14 Apr, 2013 [facility] [place] [facility] [address] [id number] [place] [address]- 6553 14 Apr, 2013 [facility] [place] [facility] [address] [id number] [place] [address]- 4317 12 Apr, 2013 [facility] [place] [facility] [address] [id number] [place] [address]- 7918 12 Apr, 2013 [facility] [place] [facility] [address] [id number] [place] [address]- 1219 10 Apr, 2013 [facility] [place] [facility] [address] [id number] [place] [address]- 5976 10 Apr, 2013 [facility] [place] [facility] [address] [id number] [place] [address]- 7321 04 Apr, 2013 [facility] [place] [facility] [address] [id number] [place] [address]- 7175 04 Apr, 2013 [facility] [place] [facility] [address] [id number] [place] [address]- 5013 Apr, [facility] [place] [facility] [address] [id number] [place] [address]- 6612 Apr, [facility] [place] [facility] [address] [id number] [place] [address]- 9888 Mar, [facility] [place] [facility] [address] [id number] [place] [address]- 2457 Mar, [facility] [place] [facility] [address] [id number] [place] [address]- 4927 Mar, [facility] [place] [facility] [address] [id number] [place] [address]- 9239 Feb, [facility] [place] [facility] [address] [id number] [place] [address]- 9094 Feb, [facility] [place] [facility] [address] [id number] [place] [address]- 5292 Feb, [facility] [place] [facility] [address] [id number] [place] [address]- 0195 Feb, [facility] [place] [facility] [address] [id number] [place] [address]- 5786 Feb, [facility] [place] [facility] [address] [id number] [place] [address]- 6096 Feb, [facility] [place] [facility] [address] [id number] [place] [address]- 7067 Feb, [facility] [place] [facility] [address] [id number] [place] [address]- 8902 Feb, [facility] [place] [facility] [address] [id number] [place] [address]- 5980 Feb, [facility] [place] [facility] [address] [id number] [place] [address]- 1612 Feb, [facility] [place] [facility] [address] [id number] [place] [address]- 4890 Jan, [facility] [place] [facility] [address] [id number] [place] [address]- 6618 30 Jan, 2013 [facility] [address] [id number] [place] [address]- 6736 Jan, [facility] [address] [id number] [place] 6986 Jan, [facility] [address] [id number] [place] [address]- 5046 Jan, [facility] [address] [id number] [place] [address]- 2925 Jan, [facility] [address] [id number] [place] [address]- 0694 Jan, [facility] [address] [id number] [place] [address]- 1992 Jan, [facility] [address] [id number] [place] [address]- 5102 Jan, [facility] [address] [id number] [place] [address]- 4208 Jan, [facility] [address] [id number] [place] [address]- 1900 Jan, [facility] [address] [id number] [place] [address]- 8335 17 Jan, 2013 [facility] [address] [id number] [place] [address]- 6222 16 Jan, 2013 [facility] [address] [id number] [place] [address]- 8240 11 Jan, 2013 [facility] [address] [id number] [place] [address]- 3196 Jan, [facility] [address] [id number] [place] [address] Jan, [facility] [address] [id number] [place] [address] Jan, [facility] [place] [facility] [address] [id number] [place] [address] Jan, [facility] [place] [facility] [address] [id number] [place] [address] Jan, [facility] [place] [facility] [address] [id number] [place] [address] Jan, [facility] [place] [facility] [address] [id number] [place] [address] Jan, [facility] [place] [facility] [address] [id number] [place] [address] Dec, [facility] [place] [facility] [address] [id number] [place] [address] Dec, [facility] [place] [facility] [address] [id number] [place] [address] Dec, [facility] [place] [facility] [address] [id number] [place] [address] Dec, [facility] [place] [facility] [address] [id number] [place] [address] Dec, [facility] [place] [facility] [address] [id number], [place] [address] Dec, [facility] [place] [facility] [address] [id number], [place] [address] Dec, [facility] [place] [facility] [address] [id number], [place] [address] Dec, [facility] [place] [facility] [address] [id number] [place] [address]- 8669 Dec, [facility] [place] [facility] [address] [id number] [place] [address] 267[address] Dec, [facility] [place] [facility] [address] [id number] [place] [address] 8320 Nov, [facility] [place] [facility] [address] [id number] [place] [address] 31 Nov, 2012 [facility] [place] [facility] [address] [id number] [place] [address] 18 Nov, 2012 [facility] [place] [facility] [address] [id number] [place] [address]106 18 Nov, 2012 [facility] [place] [facility] [address] [id number] [place] [address]- 9896 11 Nov, 2012 [facility] [place] [facility] [address] [id number] [place] [address]- 2499 11 Nov, 2012 [facility] [place] [facility] [address] [id number] [place] [address]- 2699 11 Nov, 2012 [facility] [place] [facility] [address] [id number] [place] [address]- [address] 11 Nov, 2012 [facility] [place] [facility] [address] [id number] [place] [address]- [address]146 10 Nov, 2012 [facility] [place] [facility] [address] [id number] [place] [address] 45[address] 03 Nov, 2012 [facility] [place] [facility] [address] [id number] [place] [address] 1443 26 Oct, 2012 [facility] [place] [facility] [address] [id number] [place] [address]- 2849 26 Oct, 2012 [facility] [place] [facility] [address] [id number] [place] [address]- 2949 26 Oct, 2012 [facility] [place] [facility] [address] [id number], [place] [address] 25 Oct, 2012 [facility] [place] [facility] [address] [id number] [place] [address] 06 Oct, 2012 [facility] [place] [facility] [address] [id number], [place] [address] 08 Sep, 2012 [facility] [place] [facility] [address] [id number], [place] [address] Sep, [facility] [place] [facility] [address] [id number] [place] [address] Aug, [facility] [address] [id number] [place] [address] Aug, [facility] [place] [facility] [address] [id number] [place] [address] Aug, [facility] [place] [facility] [address] [id number] [place] [address] 36[address] Aug, [facility] [address] [id number] [place] [address] 2549 Aug, [facility] [place] [facility] [address] [id number] [place] [address] Aug, [facility] [address] [id number] [place] [address] 18[address] Aug, [facility] [address] [id number] [place] [address] 47[address] Jul, [facility] [address] [id number] [place] [address] Jul, [facility] [address] [id number] [place] [address] 6899 June, [facility] [address] [id number] [place] [address] 6470 June, [facility] [place] [facility] [address] [id number] [place] [address] June, [facility] [place] [facility] [address] [id number] [place] [address] 75[address] June, [facility] [place] [facility] [address] [id number] [place] [address] 0177 June, [facility] [place] [facility] [address] [id number] [place] [address] 2507 June, [facility] [place] [facility] [address] [id number] [place] [address]- 2845 June, [facility] [address] [id number] [place] [address]- 4835 June, [facility] [address] [id number] [place] [address] 5066 June, [facility] [address] [id number] [place] [address]- 58[address] June, [facility] [place] [facility] [address] [id number] [place] [address]- 7297 June, [facility] [address] [id number] [place] [address]- [address]331 May, [facility] [place] [facility] [address] [id number] [place] [address] 1336 May, [facility] [address] [id number] [place] [address] 0110 May, [facility] [place] [facility] [address] [id number] [place] [address] 4031 May, [facility] [place] [facility] [address] [id number] [place] [address]- 1705 Apr, [facility] [place] [facility] [address] [id number] [place] [address]- 1014 Apr, [facility] [place] [facility] [address] [id number], [place] [address] Apr, [facility] [place] [facility] [address] [id number], [place] [address] Mar, [facility] [place] [facility] [address] [id number] [place] [address]- 0865 Mar, [facility] [place] [facility] [address] [id number] [place] [address]- 3918 Feb, [facility] [place] [facility] [address] [id number] [place] [address] 1924 Feb, [facility] [place] [facility] [address] [id number] [place] [address]- 6793 21 Feb, 2012 [facility] [address] [id number] [place] [address]- 9746 21 Feb, 2012 [facility] [address] [id number] [place] [address]- 6606 16 Feb, 2012 [facility] [address] [id number] [place] [address]- 6147 14 Feb, 2012 [facility] [address] [id number] [place] [address]- 3552 08 Feb, 2012 [facility] [address] [id number] [place] [address] 31 Jan, 2012 [facility] [address] [id number] [place] [address] 31 Jan, 2012 [facility] [address] [id number] [place] [address] 28 Jan, 2012 [facility] [address] [id number] [place] [address] 2436 17 Jan, 2012 [facility] [address] [id number] [place] [address] 7[address] 17 Jan, 2012 [facility] [address] [id number] [place] [address] Jan, [facility] [address] [id number] [place] [address] 2548 11 Jan, 2012 [facility] [address] [id number] [place] [address] 2546 10 Jan, 2012 [facility] [address] [id number] [place] [address] 5246 10 Jan, 2012 [facility] [address] [id number] [place] [address] 3606 03 Jan, 2012 [facility] [address] [id number] [place] [address] 2[address] Jan, [facility] [place] [facility] [address] [id number] [place] [address] Dec, [facility] [place] [facility] [address] [id number] [place] [address] Dec, [facility] [place] [facility] [address] [id number] [place] [address] 0080 Dec, [facility] [place] [facility] [address] [id number] [place] [address] 4650 Dec, [facility] [place] [facility] [address] [id number] [place] [address] 0404 Nov, [facility] [place] [facility] [address] [id number] [place] [address] 7642 Nov, [facility] [place] [facility] [address] [facility] [id number] [place] [address]- 0705 Nov, [facility] [place] [facility] [address] [id number], [place] [address] 27 Oct, 2011 [facility] [place] [facility] [address] [id number] [place] [address] 8569 24 Oct, 2011 [facility] [place] [facility] [address] [facility] [id number], [place] [address]75 21 Oct, 2011 [facility] [place] [facility] [address] [facility] [id number], [place] [address] 10 Oct, 2011 [facility] [place] [facility] [address] [id number], [place] [address] 07 Oct, 2011 [facility] [place] [facility] [address] [id number] [place] [address] 1966 04 Oct, 2011 [facility] [place] [facility] [address] [id number], [place] [address] 04 Oct, 2011 [facility] [place] [facility] [address] [facility] [id number], [place] [address] 29 Sep, 2011 [facility] [place] [facility] [address] [id number], [place] [address] Sep, [facility] [place] [facility] [address] [id number] [place] [address]- 9315 Sep, [facility] [place] [facility] [address] [id number] [place] [address] 0676 Sep, [facility] [place] [facility] [address] [id number] [place] [address]- 5026 Sep, [facility] [place] [facility] [address] [id number] [place] [address] 3838 30 Aug, 2011 [facility] [place] [facility] [address] [id number] [place] [address] 3739 Aug, [facility] [place] [facility] [address] [id number] [place] [address] 3764 Aug, [facility] [place] [facility] [address] [id number] [place] [address]- 8944 16 Aug, 2011 [facility] [place] [facility] [address] [id number] [place] [address] 8429 Aug, [facility] [place] [facility] [address] [id number] [place] [address] 6138 Aug, [facility] [place] [facility] [address] [id number] [place] [address] 7736 Aug, [facility] [place] [facility] [address] [id number] [place] [address] 7558 Jul, [facility] [place] [facility] [address] [id number] [place] [address] 9214 Jul, [facility] [place] [facility] [address] [id number] [place] [address]- 0666 Jul, [facility] [place] [facility] [address] [id number] [place] [address] Jul, [facility] [place] [facility] [address] [id number] [place] [address] 0[address] Jul, [facility] [place] [facility] [address] [id number] [place] [address]- 8240 11 Jul, 2011 [facility] [address] [id number] [place] [address]- 6359 07 Jul, 2011 [facility] [place] [facility] [address] [id number] [place] [address]- 3876 Jul, [facility] [place] [facility] [address] [id number] [place] [address]- 6319 Jul, [facility] [place] [facility] [address] [id number] [place] [address]- 5714 June, [facility] [place] [facility] [address] [id number] [place] [address] 50[address] June, [facility] [place] [facility] [address] [id number] [place] [address] 1749 June, [facility] [place] [facility] [address] [id number] [place] [address] 8241 June, [facility] [address] [id number] [place] [address]- 6365 June, [facility] [place] [facility] [address] [id number] [place] [address]- 3897 June, [facility] [place] [facility] [address] [id number] [place] [address]- 4614 June, [facility] [place] [facility] [address] [id number] [place] [address] June, [facility] [place] [facility] [address] [id number] [place] [address]- 0089 May, [facility] [place] [facility] [address] [id number] [place] [address]- 7994 May, [facility] [place] [facility] [address] [id number] [place] [address]- 9737 May, [facility] [place] [facility] [address] [id number] [place] [address]- 9291 May, [facility] [place] [facility] [address] [id number] [place] [address]- 1634 16 May, 2011 [facility] [place] [facility] [address] [id number] [place] [address]- 3781 16 May, 2011 [facility] [place] [facility] [address] [id number] [place] [address]- 3640 May, [facility] [place] [facility] [address] [id number] [place] [address]- 8219 27 Apr, 2011 [facility] [place] [facility] [address] [id number] [place] [address]- 5617 Apr, [facility] [place] [facility] [address] [id number] [place] [address]- 9704 Apr, [facility] [place] [facility] [address] [id number] [place] [address]- 7424 Apr, [facility] [place] [facility] [address] [id number] [place] [address]- 9548 Apr, [facility] [place] [facility] [address] [id number] [place] [address]- 7818 Apr, [facility] [place] [facility] [address] [id number] [place] [address]- 0208 Apr, [facility] [place] [facility] [address] [id number] [place] [address]- 6355 Mar, [facility] [place] [facility] [address] [id number] [place] [address]- 9978 Mar, [facility] [place] [facility] [address] [id number] [place] [address]- 5301 14 Mar, 2011 [facility] [place] [facility] [address] [id number] [place] [address]- 0265 13 Mar, 2011 [facility] [place] [facility] [address] [id number] [place] [address]- 6650 09 Mar, 2011 [facility] [place] [facility] [address] [id number] [place] [address]- 2546 08 Mar, 2011 [facility] [address] [id number] [place] [address]- 3956 Mar, [facility] [address] [id number] [place] [address]- 2546 Feb, [facility] [address] [id number] [place] [address]- 4516 Feb, [facility] [address] [id number] [place] [address]- 9366 Feb, [facility] [address] [id number] [place] [address]- 0866 Feb, [facility] [address] [id number] [place] [address]- 3756 Feb, [facility] [address] [id number] [place] [address]- 0353 Feb, [facility] [address] [id number] [place] [address]- 5560 Feb, [facility] [address] [id number] [place] [address]- 3616 Feb, [facility] [address] [id number] [place] [address]- 3436 Feb, [facility] [address] [id number] [place] [address]- 9446 Feb, [facility] [address] [id number] [place] [address]- 5775 Jan, [facility] [address] [id number] [place] [address]- 6486 Jan, [facility] [address] [id number] [place] [address]- 2546 Jan, [facility] [address] [id number] [place] [address]- 1172 Jan, [facility] [place] [facility] [address] [id number] [place] [address]- 4467 Jan, [facility] [place] [facility] [address] [id number] [place] [address]- 9648 Jan, [facility] [place] [facility] [address] [id number] [place] [address]- 6424 15 Jan, 2011 [facility] [place] [facility] [address] [id number] [place] [address]- 8482 Jan, [facility] [place] [facility] [address] [id number] [place] [address]- 0653 Jan, [facility] [place] [facility] [address] [id number] [place] [address]- 9926 Jan, [facility] [place] [facility] [address] [id number] [place] [address]- 1884 Jan, [facility] [place] [facility] [address] [id number] [place] [address]- 6393 Dec, [facility] [place] [facility] [address] [id number] [place] [address]- 1541 17 Dec, 2010 [facility] [place] [facility] [address] [id number] [place] [address]- 2143 17 Dec, 2010 [facility] [place] [facility] [address] [id number] [place] [address]- 1285 16 Dec, 2010 [facility] [place] [facility] [address] [id number], [place] [address]- 4683 14 Dec, 2010 [facility] [place] [facility] [address] [id number] [place] [address]- 3503 09 Dec, 2010 [facility] [place] [facility] [address] [id number] [place] [address]- 5673 08 Dec, 2010 [facility] [place] [facility] [address] [id number] [place] [address]- 2963 07 Dec, 2010 [facility] [place] [facility] [address] [id number] [place] [address]- 3885 02 Dec, 2010 [facility] [place] [facility] [address] [id number] [place] [address]- 2819 Nov, [facility] [place] [facility] [address] [id number] [place] [address]- 2232 31 Nov, 2010 [facility] [place] [facility] [address] [id number] [place] [address]- 1352 Nov, [facility] [place] [facility] [address] [id number] [place] [address]- 6667 24 Nov, 2010 [facility] [place] [facility] [address] [id number] [place] [address]83 24 Nov, 2010 [facility] [place] [facility] [address] [id number] [place] [address]- 5171 Nov, [facility] [place] [facility] [address] [id number] [place] [address]- 0749 Aug, [facility] [place] [facility] [address] [id number] [place] [address]- 4634 14 Feb, 2010 [facility] [place] [facility] [address] [id number] [place] [address]- 3286 14 Jan, 2010 [facility] [place] [facility] [address] [facility] [id number] [place] [address]- 5537 06 Jan, 2010 [facility] [place] [facility] [address] [id number] [place] [address]- 9797 Jan, [facility] [place] [facility] [address] [id number] [place] [address]- 7674 Jan, [facility] [place] [facility] [address] [id number] [place] [address]- 1959 Jan, [facility] [place] [facility] [address] [id number] [place] [address]- 0992 24 Dec, 2009 [facility] [place] [facility] [address] [id number] [place] [address]- 8752 18 Dec, 2009 [facility] [place] [facility] [address] [facility] [id number], [place] [address]- 7556 Dec, [facility] [address] [id number], [place] [address] 4[address] Dec, [facility] [address] [id number], [place] [address]- 8[address] Nov, [facility] [address] [facility] [id number], [place] [address]- 5638 Nov, [facility] [address] [facility] [id number]- [address]342 Nov, IMMUNIZATIONS No Known Immunizations SOCIAL HISTORY Never Assessed REASON FOR VISIT Fentanyl refill PLAN OF CARE VITAL SIGNS MEDICATIONS Medication [...]
--- OUTSIDE RECORDS SUMMARY | 2018-01-13 21:26 | XMS REPORT ---
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 Active 72746355 Problem Unspecified episodic mood disorder F39 Active 27703663 Problem Hypertension I10 Active 47719146 Problem Venous insufficiency (chronic) (peripheral) I87.2 Active 635950593 Problem Gastroesophageal reflux disease, esophagitis presence not specified K21.9 Active 251289067 Problem Other chronic pain G89.29 Active 88560727 Problem Chronic hepatitis C without hepatic coma B18.2 Active 401189264 Problem Other psychoactive substance dependence, uncomplicated F19.20 Active 0072169 Problem 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, 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 260926035 ALLERGIES No Information ENCOUNTERS Encounter Location Date Diagnosis [facility] [id number] [place] [address] 68312- 0811 May, [facility] [id number] [place] [address] 76986- 8948 May, [facility] [id number] [place] [address] 13914- 7779 May, 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 ; Unspecified episodic mood disorder F39 ; Combined drug dependence excluding opioids, 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 ; Other psychoactive substance dependence, uncomplicated F19.20 and Anxiety F41.9 [facility] [id number] [place] [address] 44518- 7945 May, Other chronic pain G89.29 ; Left hip pain M25.552 ; Hypertension I10 ; 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, 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 and Unspecified episodic mood disorder F39 [facility] [id number] [place] [address] 60025- 9869 Apr, [facility] [id number] [place] [address] 99160 -2709 Apr, Neck pain M54.2 ; Left hip pain M25.552 and Fall, initial encounter W19.XXXA [facility] [address] 81718- 0745 Apr, Unspecified episodic mood disorder F39 ; Combined drug dependence excluding opioids, 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 ; Anxiety F41.9 ; Other psychoactive substance dependence, uncomplicated F19.20 and 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 [facility] [id number] [place] [address] 89058- 7333 Apr, [facility] [id number] [place] [address] 14128- 7542 Apr, Arthritis M19.90 and Unspecified episodic mood disorder F39 [facility] [id number] [place] [address] 88218- 3537 Apr, Unspecified episodic mood disorder F39 [facility] [id number] [place] [address] 87870- 1313 Apr, [facility] [id number] [place] [address] 48912- 4282 08 Apr, 2017 [facility] [id number] [place] [address] 31304- 4899 07 Apr, 2017 Unspecified episodic mood disorder F39 ; Combined drug dependence excluding opioids, 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 ; Anxiety F41.9 ; Other psychoactive substance dependence, uncomplicated F19.20 and 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 [facility] [id number] [place] [address] 46124- 2408 Mar, Unspecified episodic mood disorder F39 [facility] [id number] [place] [address] 93805- 7136 Mar, Gastroesophageal reflux disease, esophagitis presence not specified K21.9 [facility] [id number] [place] [address] 64323- 0156 Mar, Arthritis M19.90 and Unspecified episodic mood disorder F39 [facility] [id number] [place] [address] 72647- 0286 Feb, [facility] [id number] [place] [address] 89013- 2664 Feb, [facility] [id number] [place] [address] 66512- 9811 Feb, [facility] [id number] [place] [address] 53740- 1883 Feb, Arthritis M19.90 [facility] [id number] [place] [address] 14597- 8249 Feb, Non-pressure chronic ulcer of right calf, 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 ; Unspecified episodic mood disorder F39 and Left hip pain M25.552 [facility] [address] [address]- 7913 Feb, [facility] [id number] [place] [address] 43353- 6380 Feb, [facility] [id number] [place] [address] 10083- 0122 Jan, Arthritis M19.90 [facility] [id number] [place] [address] 93247- 7608 Jan, Left hip pain M25.552 and Non-pressure chronic ulcer of right calf, 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 [facility] [address] [place] [address] 95739- 7467 Jan, Chronic hepatitis C without hepatic coma B18.2 [facility] [id number] [place] [address] 97355- 5239 Jan, Encounter for immunization Z23 ; Venous insufficiency ( chronic) (peripheral) I87.2 ; Non-pressure chronic ulcer of unspecified calf limited to breakdown of skin L97.201 and Gastroesophageal reflux disease, esophagitis presence not specified K21.9 [facility] [id number] [place] [address] 97419- 2127 Jan, [facility] [id number] [place] [address] 08193- 3809 Jan, Chronic hepatitis C without hepatic coma B18.2 and Encounter for immunization Z23 [facility] [id number] [place] [address] 18880- 9163 Jan, Arthritis M19.90 [facility] [id number] [place] [address] 23315- 6463 Jan, [facility] [id number] [place] [address] 67340- 5438 Dec, [facility] [id number] [place] [address] 43709- 5377 Dec, Unspecified episodic mood disorder F39 [facility] [id number] [place] [address] 12056- 6423 Dec, Arthritis M19.90 [facility] [id number] [place] [address] 76944- 9306 Dec, Arthritis M19.90 [facility] [id number] [place] [address] 18843- 2576 Nov, [facility] [id number] [place] [address] 87996- 8301 Nov, [facility] [id number] [place] [address] 47752- 5929 Nov, Other psychoactive substance dependence, uncomplicated F19.20 ; 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, 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 and Chronic hepatitis C without hepatic coma B18.2 [facility] [id number] [place] [address] 05117- 9509 Nov, Arthritis M19.90 [facility] [id number] [place] [address] 10541 -3989 Oct, Partial thickness burn of abdomen, initial encounter T21.22XA [facility] [id number] [place] [address] 08726- 0572 Oct, [facility] [id number] [place] [address] 73286- 1322 Sep, Arthritis M19.90 [facility] [id number] [place] [address] 06350- 7035 Sep, [facility] [id number] [place] [address] 08682- 0066 Sep, [facility] [id number] [place] [address] 36805- 2859 Sep, Unspecified episodic mood disorder F39 ; Chronic hepatitis C without hepatic coma B18.2 and Left hip pain M25.552 [facility] [id number] [place] [address] 88107- 2310 Sep, Arthritis M19.90 and Left hip pain M25.552 [facility] [id number] [place] [address] 16091- 1600 Aug, [facility] [id number] [place] [address] 88302- 9075 Aug, [facility] [id number] [place] [address] 53866- 4031 Aug, Chronic hepatitis C without hepatic coma B18.2 [facility] [id number] [place] [address] 25996- 3437 Aug, [place] [id number] [place] [address] 08034- 1925 Aug, Chronic hepatitis C without hepatic coma B18.2 [facility] [id number] [place] [address] 52282- 8214 Aug, 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, 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 [facility] [id number] [place] [address] 32821- 5806 Aug, [facility] [id number] [place] [address] 39006- 3235 Aug, Chronic hepatitis C without hepatic coma B18.2 and Hypertension I10 [facility] [id number] [place] [address] 87828- 4046 Jul, [facility] [id number] [place] [address] 71890- 5976 June, [facility] [id number] [place] [address] 12772- 8167 Apr, Fibromyalgia M79.7 ; Left hip pain M25.552 and Decubitus ulcer of sacral region, stage 1 L89.151 [facility] [id number] [place] [address] 01779- 9636 Apr, [facility] [id number] [place] [address] 10947- 5678 Apr, [facility] [id number] [place] [address] 16340- 2178 Feb, [facility] [id number] [place] [address] 24972- 2631 Dec, Anxiety F41.9 ; Combined drug dependence excluding opioids, 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 and Unspecified episodic mood disorder F39 [facility] [id number] [place] [address] 80027- 8137 Dec, [facility] [address] 73715- 2702 Nov, [facility] [id number] [place] [address] 99353- 1080 Nov, [facility] [id number] [place] [address] 34617- 7148 Nov, 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 and Anxiety F41.9 [facility] [id number] [place] [address] 05213- 6515 Oct, [facility] [id number] [place] [address] 11758 -3322 14 Oct, 2015 Open wound of left thigh, initial encounter S71.102A [facility] [id number] [place] [address] 33403- 0097 Oct, [facility] [id number] [place] [address] 99510- 0408 Sep, Unspecified episodic mood disorder F39 ; Other disorder of impulse control 312.39 ; Combined drug dependence excluding opioids, 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 and Anxiety F41.9 [facility] [address] [place] [address] 99412- 5246 Sep, Other disorder of impulse control 312.39 ; Combined drug dependence excluding opioids, 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 ; Anxiety F41.9 and Unspecified episodic mood disorder F39 [facility] [id number] [place] [address] 24712- 6202 Sep, Other chronic pain G89.29 [facility] [id number] [place] [address] 63106- 6635 Sep, [facility] [id number] [place] [address] 11775- 8793 Sep, [facility] [id number] [place] [address] 59315- 6269 Aug, [facility] [id number] [place] [address] 34173- 8270 Aug, [facility] [address] [address]- 0086 Aug, [facility] [id number] [place] [address] 84961- 4040 Jul, [facility] [id number] [place] [address] 17052- 3768 Jul, [facility] [id number] [place] [address] 17231- 0404 Jul, [facility] [id number] [place] [address] 43280- 6704 17 Jul, 2015 Arthritis M19.90 ; Chronic hepatitis C without hepatic coma B18.2 and Left hip pain M25.552 [facility] [id number] [place] [address] 96221- 6379 Jul, Left knee pain M25.562 [facility] [id number] [place] [address] 39037- 4288 Jul, Combined drug dependence excluding opioids, 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 ; Anxiety F41.9 ; Other disorder of impulse control 312.39 and Unspecified episodic mood disorder F39 [facility] [id number] [place] [address] 10285- 4807 Jul, Left knee pain M25.562 [facility] [address] [place] [address] 51923- 7103 Jul, Left knee pain M25.562 and Left hip pain M25.552 [facility] [address] [place] [address] 49896- 7925 Jul, [facility] [id number] [place] [address] 74298- 9134 June, [facility] [address] [place] [address] 90204- 4868 June, Combinations of drug dependence excluding opioid type drug, unspecified abuse 304.80 ; Other disorder of impulse control 312.39 ; Unspecified episodic mood disorder F39 and Anxiety F41.9 [facility] [id number] [place] [address] 32629- 1162 June, Other fatigue R53.83 ; Headache R51 and Left knee pain M25.562 [facility] [id number] [place] [address] 36056- 0441 June, Unspecified episodic mood disorder F39 ; Combinations of drug dependence excluding opioid type drug, unspecified abuse 304.80 ; Other disorder of impulse control 312.39 and Anxiety F41.9 [facility] [id number] [place] [address] 90563- 8792 June, Anxiety F41.9 [place] [id number] [place] [address] 98444- 2549 June, Pain in left knee M25.562 [place] [facility] [id number] [place] [address] 32426- 5810 June, Anxiety F41.9 and Combinations of drug dependence excluding opioid type drug, unspecified abuse 304.80 [facility] [id number] [place] [address] 01309- 3012 June, Unspecified episodic mood disorder 296.90 ; Combinations of drug dependence excluding opioid type drug, unspecified abuse 304.80 and Other disorder of impulse control 312.39 [facility] [address] [place] [address] 36039- 9551 June, Anxiety F41.9 and Unspecified episodic mood disorder 296.90 [facility] [address] [place] [address] 29652- 8715 May, Arthritis M19.90 [facility] [id number] [place] [address] 26848- 1623 May, Arthritis M19.90 [facility] [address] [place] [address] 96418- 9467 May, Anxiety F41.9 ; Combinations of drug dependence excluding opioid type drug, unspecified abuse 304.80 and Other disorder of impulse control 312.39 [facility] [address], [place] [address]- 6065 18 May, 2015 Left knee pain M25.562 [facility] [address] [address]- 4429 14 May, 2015 Arthritis M19.90 [facility] [facility] [address] [place] [address] 81898- 0511 May, [facility] [address] [address]- 1715 May, Anxiety F41.9 ; Unspecified episodic mood disorder 296.90 ; Combinations of drug dependence excluding opioid type drug, unspecified abuse 304.80 and Other disorder of impulse control 312.39 [facility] [facility] [address] [address]- 3456 May, Left knee pain M25.562 [place] [address] [place] [address] 67958- 7926 May, Left knee pain M25.562 ; Combinations of drug dependence excluding opioid type drug, unspecified abuse 304.80 ; Other disorder of impulse control 312.39 ; Fibromyalgia M79.7 ; Hypertension I10 ; Unspecified episodic mood disorder 296.90 and Left hip pain M25.552 [place] [address] [address]- 5199 May, Unspecified episodic mood disorder 296.90 ; Other disorder of impulse control 312.39 ; Combinations of drug dependence excluding opioid type drug, unspecified abuse 304.80 and Anxiety F41.9 [facility] [address] [place] [address] 86644- 3420 May, Left knee pain M25.562 ; Combinations of drug dependence excluding opioid type drug, unspecified abuse 304.80 ; Other disorder of impulse control 312.39 ; Fibromyalgia M79.7 ; Hypertension I10 ; Unspecified episodic mood disorder 296.90 and Left hip pain M25.552 [place] [address], [place] [address]- 5880 May, Anxiety F41.9 ; Unspecified episodic mood disorder 296.90 ; Other disorder of impulse control 312.39 and Combinations of drug dependence excluding opioid type drug, unspecified abuse 304.80 [facility] [address] [place] [address] 18934- 1474 30 Apr, 2015 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 and 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, implants and grafts, initial encounter T84.82XA [facility] [id number] [place] [address] 73934- 5301 Apr, Anxiety F41.9 ; Unspecified episodic mood disorder 296.90 ; Combinations of drug dependence excluding opioid type drug, unspecified abuse 304.80 and Other disorder of impulse control 312.39 [place] [id number] [place] [address] 33277- 5439 Apr, Arthritis M19.90 [facility] [id number] [place] [address] 62379- 4391 Apr, Anxiety F41.9 ; Unspecified episodic mood disorder 296.90 ; Combinations of drug dependence excluding opioid type drug, unspecified abuse 304.80 and Other disorder of impulse control 312.39 [facility] [address] [place] [address] 99730- 7387 17 Apr, 2015 Arthritis M19.90 [facility] [id number] [place] [address] 29818- 4611 15 Apr, 2015 [facility] [id number] [place] [address] 84540- 1615 15 Apr, 2015 [place] [id number] [place] [address] 44232- 6623 14 Apr, 2015 Unspecified episodic mood disorder 296.90 ; Combinations of drug dependence excluding opioid type drug, unspecified abuse 304.80 ; Other disorder of impulse control 312.39 and Anxiety F41.9 [facility] [id number] [place] [address] 66337 -2097 Apr, Left knee pain M25.562 [facility] [id number] [place] [address] 05992- 4809 Apr, [place] [address] 20327- 0627 Mar, Unspecified episodic mood disorder 296.90 ; Anxiety F41.9 ; Other disorder of impulse control 312.39 and Combinations of drug dependence excluding opioid type drug, unspecified abuse 304.80 [place] [id number] [place] [address] 48016- 2889 Mar, Hyperpigmentation L81.[address] 53252- 8031 Mar, Arthritis M19.90 and Anxiety F41.[address] 74303- 7677 Mar, Unspecified episodic mood disorder F39 ; Combined drug dependence excluding opioids, 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 ; Other disorder of impulse control 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 and Anxiety F41.9 [place] [id number] [place] [address] 87811- 6805 12 Mar, 2015 Well woman exam Z01.419 ; Other fatigue R53.83 ; Hot flashes N95.1 ; Depression, unspecified depression type F32.9 and Body mass index (BMI) of 23.0-23.9 in adult Z68.23 [place] [id number] [place] [address] 06416- 6340 11 Mar, 2015 Unspecified episodic mood disorder 296.90 ; Other disorder of impulse control 312.39 and Anxiety F41.9 [place] [id number] [place] [address] 76483- 4815 11 Mar, 2015 Well woman exam Z01.419 [...] of breast Z12.39 and Limited mobility Z74.[address] 32200- 6232 Mar, [address] 96181- 4430 Mar, [address] 67655- 2546 Mar, [address] 46108- 6754 Mar, Other specified complication of internal orthopedic prosthetic devices, implants and grafts, initial encounter T84.89XA ; Fibromyalgia M79.7 ; Hypertension I10 ; Anemia D64.9 ; Insomnia G47.00 ; Anxiety F41.9 ; Arthritis M19.90 and Migraine G43.[address] 07695- 0616 Mar, [address] 92873- 8173 Feb, [address] 53515- 9447 Feb, Arthritis M19.90 and Anxiety F41.[address] 36541- 0151 Feb, [address] 35006- 8860 Feb, [address] [place] [address]- 0228 Feb, [facility] [id number] [place] [address] 77549- 7704 Feb, [facility] [id number] [place] [address] 09922- 9295 Feb, Anxiety F41.9 [facility] [id number] [place] [address] 84282- 4028 Feb, [facility] [id number] [place] [address] 88418- 8292 Feb, [facility] [id number] [place] [address] 89751- 8994 Feb, 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 and Fibromyalgia M79.7 [facility] [id number] [place] [address] 84519- 8853 Feb, [facility] [id number] [place] [address] 79786- 0490 Jan, [facility] [address] [place] [address] 96896- 9482 Jan, [facility] [id number] [place] [address] 56611- 0993 Jan, [facility] [address] [address]- 0976 24 Jan, 2015 [facility] [address], [place] [address]- 7115 16 Jan, 2015 [facility] [address] [address]- 5402 08 Jan, 2015 [facility] [id number] [place] [address] 98285- 2727 Jan, [facility] [address] [address]- 4124 Jan, [facility] [id number] [address]- 8984 Dec, [facility] [id number] [place] [address] 90691- 6183 Dec, Left knee pain M25.562 [facility] [id number] [place] [address] 92094- 9033 Dec, Left knee pain M25.562 [facility] [id number] [place] [address] 98199- 1930 Dec, Fibromyalgia M79.7 ; Hypertension I10 and Arthritis M19.90 [facility] [id number] [place] [address] 95003- 1909 Dec, [facility] [id number] [place] [address] 73966- 3152 Dec, [facility] [id number] [place] [address] 30581- 7813 Dec, [facility] [id number] [address]- 9051 Dec, [facility] [id number] [place] [address]- 5318 Nov, [facility] [id number] [place] [address] 8[address]- 1982 Nov, [facility] [id number] [place] [address]- 1519 Nov, [facility] [id number] [place] [address] 74047- 6031 Nov, Hypertension I10 [facility] [id number] [place] [address] 7[address]13- 3037 Oct, [facility] [address] [id number] [address] 6[address] Oct, [facility] [id number] [place] [address]978- 5245 Oct, [facility] [address] [id number] [place] [address] 6153 Oct, [facility] [address] [id number] [place] [address]- 7812 Oct, [facility] [address] [id number] [place] [address]- 3556 Sep, [facility] [address] [id number] [place] [address]- 3368 Sep, [facility] [address] [id number] [place] [address]- 0977 Sep, Hip pain associated with recalled total hip arthroplasty hardware 996.77 [facility] [address] [id number] [place] [address]- 4716 Sep, [facility] [address] [id number], [place] [address] 6382 Sep, [facility] [address] [id number] [place] [address]- 1698 Sep, [facility] [address] [id number] [place] [address]- 7771 Aug, [facility] [address] [id number] [place] [address]- 6808 Jul, [facility] [address] [id number], [place] [address]- 1838 June, [facility] [address] [id number], [place] [address]- 5310 June, [facility] [place] [facility] [address] [id number] [place] [address]- 4156 June, [facility] [place] [facility] [address] [id number] [place] [address]- 7028 June, [facility] [place] [facility] [address] [id number] [place] [address]- 7490 June, [facility] [address] [id number] [place] [address]- 2546 June, [facility] [address] [id number] [place] [address]- 4156 30 May, 2014 [facility] [place] [facility] [address] [id number] [place] [address]- 2546 May, [facility] [address] [id number] [place] [address]- 2036 May, [facility] [place] [facility] [address] [id number] [place] [address]- 2546 30 Apr, 2014 [facility] [place] [facility] [address] [id number] [place] [address]- 2686 30 Apr, 2014 [facility] [place] [facility] [address] [id number] [place] [address]- 2736 Apr, [facility] [place] [facility] [address] [id number] [place] [address]- 6581 Apr, [facility] [address] [id number] [place] [address]- 0281 Apr, [facility] [place] [facility] [address] [id number] [place] [address]- 1057 Apr, [facility] [place] [facility] [address] [id number] [place] [address]- 2680 Apr, [facility] [place] [facility] [address] [id number] [place] [address]- 1816 Apr, [facility] [place] [facility] [address] [id number] [place] [address]- 9336 Apr, [facility] [place] [facility] [address] [id number] [place] [address]- 2036 05 Apr, 2014 [facility] [place] [facility] [address] [id number] [place] [address]- 2546 Apr, [facility] [place] [facility] [address] [id number] [place] [address]- 2916 Mar, [facility] [place] [facility] [address] [id number] [place] [address]- 2114 Mar, 2014 [facility] [place] [facility] [address] [id number] [place] [address]- 0215 Mar, 2014 [facility] [place] [facility] [address] [id number] [place] [address]- 4904 Mar, 2014 [facility] [place] [facility] [address] [id number] [place] [address]- 7774 Mar, 2014 [facility] [place] [facility] [address] [id number] [place] [address]- 1458 Mar, [facility] [place] [facility] [address] [id number] [place] [address]- 0817 Feb, [facility] [place] [facility] [address] [id number] [place] [address]- 4656 Feb, [facility] [place] [facility] [address] [id number] [place] [address]- 6527 Feb, [facility] [place] [facility] [address] [id number] [place] [address]- 7209 Feb, [facility] [place] [facility] [address] [id number] [place] [address]- 0742 Jan, [facility] [place] [facility] [address] [id number] [place] [address]- 4126 Jan, [facility] [place] [facility] [address] [id number] [place] [address]- 4563 Jan, [facility] [place] [facility] [address] [id number] [place] Jan, [facility] [place] [facility] [address] [id number] [place] [address]- 9995 Dec, [facility] [place] [facility] [address] [id number] [place] Dec, [facility] [place] [facility] [address] [id number] [place] [address]- 5745 Dec, [facility] [place] [facility] [address] [id number] [place] [address]- 5827 Dec, [facility] [place] [facility] [address] [id number] [place] [address]- 1219 Dec, [facility] [place] [facility] [address] [id number] [place] [address]- 0490 Dec, [facility] [place] [facility] [address] [id number] [place] [address]- 8312 Dec, [facility] [place] [facility] [address] [id number] [place] [address]- 6629 Dec, [facility] [place] [facility] [address] [id number] [place] [address]- 3982 Dec, [facility] [place] [facility] [address] [id number] [place] [address]- 2543 Dec, [facility] [place] [facility] [address] [id number] [place] [address]- 6355 Dec, [facility] [place] [facility] [address] [id number] [place] [address]- 6536 Nov, [facility] [place] [facility] [address] [id number] [place] [address]- 3606 Nov, [facility] [place] [facility] [address] [id number] [place] [address]- 7905 28 Nov, 2013 [facility] [place] [facility] [address] [id number] [place] [address]- 3264 Nov, [facility] [place] [facility] [address] [id number] [place] [address]- 7839 17 Nov, 2013 [facility] [place] [facility] [address] [id number] [place] [address]- 8971 15 Nov, 2013 [facility] [place] [facility] [address] [id number] [place] [address]- 3039 15 Nov, 2013 [facility] [place] [facility] [address] [id number] [place] [address]- 3406 15 Nov, 2013 [facility] [place] [facility] [address] [id number] [place] [address]- 5194 15 Nov, 2013 [facility] [place] [facility] [address] [id number] [place] [address]- 1108 14 Nov, 2013 [facility] [place] [facility] [address] [id number] [place] [address]- 4579 14 Nov, 2013 [facility] [place] [facility] [address] [id number] [place] [address]- 3979 14 Nov, 2013 [facility] [place] [facility] [address] [id number] [place] [address]- 2809 14 Nov, 2013 [facility] [place] [facility] [address] [id number] [place] [address]- 6150 13 Nov, 2013 [facility] [place] [facility] [address] [id number], [place] [address]- 5950 13 Nov, 2013 [facility] [place] [facility] [address] [id number] [place] [address]- 9024 11 Nov, 2013 [facility] [place] [facility] [address] [id number], [place] [address]- 7768 11 Nov, 2013 [facility] [place] [facility] [address] [id number], [place] [address]- 7732 07 Nov, 2013 [facility] [place] [facility] [address] [id number], [place] [address]- 6941 07 Nov, 2013 [facility] [place] [facility] [address] [id number], [place] [address]- 9302 07 Nov, 2013 [facility] [place] [facility] [address] [id number], [place] [address]- 4022 07 Nov, 2013 [facility] [place] [facility] [address] [id number], [place] [address]- 0656 30 Oct, 2013 [facility] [place] [facility] [address] [id number], [place] [address]- 1828 30 Oct, 2013 [facility] [place] [facility] [address] [id number] [place] [address] 2546 26 Oct, 2013 [facility] [place] [facility] [address] [id number] [place] [address]- 3216 26 Oct, 2013 [facility] [place] [facility] [address] [id number] [place] [address]- 5112 22 Oct, 2013 [facility] [place] [facility] [address] [id number] [place] [address]- 9373 22 Oct, 2013 [facility] [place] [facility] [address] [id number] [place] [address]- 3831 18 Oct, 2013 [facility] [place] [facility] [address] [id number] [place] [address]- 1357 18 Oct, 2013 [facility] [place] [facility] [address] [id number] [place] [address]- 3876 Oct, 2013 [facility] [place] [facility] [address] [id number] [place] [address]- 5314 18 Oct, 2013 [facility] [place] [facility] [address] [id number] [place] [address]- 2257 12 Oct, 2013 [facility] [place] [facility] [address] [id number] [place] [address]- 3158 Oct, 2013 [facility] [place] [facility] [address] [id number] [place] [address]- 4239 Oct, 2013 [facility] [place] [facility] [address] [id number] [place] [address]- 2549 Oct, 2013 [facility] [place] [facility] [address] [id number] [place] [address]- 0319 Sep, [facility] [place] [facility] [address] [id number] [place] [address]- 7544 Sep, [facility] [place] [facility] [address] [id number] [place] [address]- 8299 Sep, [facility] [place] [facility] [address] [id number] [place] [address]- 4565 Sep, [facility] [place] [facility] [address] [id number] [place] [address]- 7548 Sep, [facility] [place] [facility] [address] [id number] [place] [address]- 4975 Sep, [facility] [place] [facility] [address] [id number] [place] [address]- 4495 Sep, [facility] [place] [facility] [address] [id number] [place] [address]- 9492 Sep, [facility] [place] [facility] [address] [id number] [place] [address]- 0858 Sep, [facility] [place] [facility] [address] [id number] [place] [address]- 3446 Sep, [facility] [place] [facility] [address] [id number] [place] [address]- 6536 Sep, [facility] [place] [facility] [address] [id number] [place] [address]- 4873 Sep, [facility] [place] [facility] [address] [id number] [place] [address]- 9466 Sep, [facility] [place] [facility] [address] [id number] [place] [address]- 4726 Sep, [facility] [place] [facility] [address] [id number] [place] [address]- 4098 Sep, [facility] [place] [facility] [address] [id number] [place] [address]- 3969 Sep, [facility] [place] [facility] [address] [id number] [place] [address]- 3995 Sep, [facility] [place] [facility] [address] [id number] [place] [address]- 1359 Sep, [facility] [place] [facility] [address] [id number] [place] [address]- 5682 Aug, [facility] [place] [facility] [address] [id number] [place] [address]- 6757 Aug, [facility] [place] [facility] [address] [id number] [place] [address]- 5466 Aug, [facility] [place] [facility] [address] [id number] [place] [address]- 4624 Aug, [facility] [place] [facility] [address] [id number] [place] [address]- 6032 Aug, [facility] [place] [facility] [address] [id number] [place] [address]- 2317 Aug, [facility] [place] [facility] [address] [id number] [place] [address]- 6574 Jul, [facility] [place] [facility] [address] [id number] [place] [address]- 1597 Jul, [facility] [place] [facility] [address] [id number] [place] [address]- 5054 Jul, [facility] [place] [facility] [address] [id number] [place] [address]- 6572 Jul, [facility] [place] [facility] [address] [id number] [place] [address]- 0616 June, [facility] [place] [facility] [address] [id number] [place] [address]- 7775 June, [facility] [place] [facility] [address] [id number] [place] [address]- 2488 June, [facility] [place] [facility] [address] [id number] [place] [address]- 5316 June, [facility] [place] [facility] [address] [id number] [place] [address]- 7243 June, [facility] [place] [facility] [address] [id number] [place] [address]- 9200 June, [facility] [place] [facility] [address] [id number] [place] [address]- 4660 June, [facility] [place] [facility] [address] [id number] [place] [address]- 8600 29 May, 2013 [facility] [place] [facility] [address] [id number] [place] [address]- 5077 29 May, 2013 [facility] [place] [facility] [address] [id number] [place] [address]- 2945 May, [facility] [place] [facility] [address] [id number] [place] [address]- 6258 May, [facility] [place] [facility] [address] [id number] [place] [address]- 8129 May, [facility] [place] [facility] [address] [id number] [place] [address]- 3902 May, [facility] [place] [facility] [address] [id number] [place] [address]- 6815 31 Apr, 2013 [facility] [place] [facility] [address] [id number] [place] [address]- 6959 31 Apr, 2013 [facility] [place] [facility] [address] [id number] [place] [address]- 9370 28 Apr, 2013 [facility] [place] [facility] [address] [id number] [place] [address]- 0035 28 Apr, 2013 [facility] [place] [facility] [address] [id number] [place] [address]- 3045 14 Apr, 2013 [facility] [place] [facility] [address] [id number] [place] [address]- 5895 14 Apr, 2013 [facility] [place] [facility] [address] [id number] [place] [address]- 5452 12 Apr, 2013 [facility] [place] [facility] [address] [id number] [place] [address]- 7402 12 Apr, 2013 [facility] [place] [facility] [address] [id number] [place] [address]- 5062 10 Apr, 2013 [facility] [place] [facility] [address] [id number] [place] [address]- 8637 Apr, [facility] [place] [facility] [address] [id number] [place] [address]- 9963 Apr, [facility] [place] [facility] [address] [id number] [place] [address]- 1068 Apr, [facility] [place] [facility] [address] [id number] [place] [address]- 2595 Apr, [facility] [place] [facility] [address] [id number] [place] [address]- 9257 Apr, [facility] [place] [facility] [address] [id number] [place] [address]- 1231 Mar, [facility] [place] [facility] [address] [id number] [place] [address]- 4362 Mar, [facility] [place] [facility] [address] [id number] [place] [address]- 7897 Mar, [facility] [place] [facility] [address] [id number] [place] [address]- 6848 Feb, [facility] [place] [facility] [address] [id number] [place] [address]- 3529 Feb, [facility] [place] [facility] [address] [id number] [place] [address]- 4342 Feb, [facility] [place] [facility] [address] [id number] [place] [address]- 5159 Feb, [facility] [place] [facility] [address] [id number] [place] [address]- 6837 Feb, [facility] [place] [facility] [address] [id number] [place] [address]- 7083 Feb, [facility] [place] [facility] [address] [id number] [place] [address]- 7909 Feb, [facility] [place] [facility] [address] [id number], [place] [address]- 0426 Feb, [facility] [address] [id number] [place] [address]- 0985 Feb, [facility] [address] [id number] [place] [address]- 5359 Feb, [facility] [address] [id number] [place] [address]- 2735 Jan, [facility] [address] [id number] [place] [address]- 4318 Jan, [facility] [address] [id number] [place] [address]- 8411 Jan, [facility] [address] [id number] [place] [address]- 1559 Jan, [facility] [address] [id number] [place] [address]- 6641 Jan, [facility] [address] [id number] [place] [address]- 6275 Jan, [facility] [address] [id number] [place] [address]- 1299 Jan, [facility] [address] [id number] [place] [address]- 9327 Jan, [facility] [address] [id number] [place] [address]- 1298 Jan, [facility] [place] [facility] [address] [id number] [place] [address]- 7232 19 Jan, 2013 [facility] [place] [facility] [address] [id number] [place] [address]- 9453 17 Jan, 2013 [facility] [place] [facility] [address] [id number] [place] [address]- 8237 17 Jan, 2013 [facility] [place] [facility] [address] [id number] [place] 9659 16 Jan, 2013 [facility] [place] [facility] [address] [id number] [place] [address]- 5056 Jan, [facility] [address] [id number] [place] [address]- 4454 Jan, [facility] [place] [facility] [address] [id number] [place] [address]- 8663 Jan, [facility] [address] [id number] [place] [address]- 9668 Jan, [facility] [place] [facility] [address] [id number] [place] [address]- 3703 Jan, [facility] [address] [id number] [place] [address]- 8887 Jan, [facility] [address] [id number] [place] [address]- 1808 Jan, [facility] [address] [id number] [place] [address]- 9062 Jan, [facility] [address] [id number] [place] [address]- 4077 Dec, [facility] [place] [facility] [address] [id number] [place] [address] Dec, [facility] [address] [id number] [place] [address] Dec, [facility] [place] [facility] [address] [id number] [place] [address] Dec, [facility] [place] [facility] [address] [id number] [place] [address] Dec, [facility] [place] [facility] [address] [id number] [place] [address] Dec, [facility] [place] [facility] [address] [id number] [place] [address] Dec, [facility] [place] [facility] [address] [id number] [place] [address] Dec, [facility] [place] [facility] [address] [id number] [place] [address] Dec, [facility] [place] [facility] [address] [id number] [place] [address] Dec, [facility] [place] [facility] [address] [id number] [place] [address] Nov, [facility] [place] [facility] [address] [id number] [place] [address] Nov, [facility] [place] [facility] [address] [id number] [place] [address] 99[address] Nov, [facility] [place] [facility] [address] [id number] [place] [address] Nov, [facility] [place] [facility] [address] [id number] [place] [address] Nov, [facility] [place] [facility] [address] [id number], [place] [address] Nov, [facility] [place] [facility] [address] [id number] [place] [address] Nov, [facility] [place] [facility] [address] [id number], [place] [address] Nov, [facility] [place] [facility] [address] [id number], [place] [address] Nov, [facility] [place] [facility] [address] [id number], [place] [address] Nov, [facility] [place] [facility] [address] [id number] [place] [address] 40[address] Oct, [facility] [place] [facility] [address] [id number], [place] [address] Oct, [facility] [place] [facility] [address] [id number] [place] [address] Oct, [facility] [place] [facility] [address] [id number] [place] [address] Oct, [facility] [address] [id number] [place] [address] Oct, [facility] [place] [facility] [address] [id number] [place] [address] Sep, [facility] [place] [facility] [address] [id number] [place] [address] 2546 Sep, [facility] [place] [facility] [address] [id number] [place] [address] Aug, [facility] [place] [facility] [address] [id number] [place] [address] Aug, [facility] [place] [facility] [address] [id number] [place] [address]85 Aug, [facility] [address] [id number] [place] [address] Aug, [facility] [place] [facility] [address] [id number] [place] [address] Aug, [facility] [place] [facility] [address] [id number] [place] [address] 7916 Aug, [facility] [place] [facility] [address] [id number] [place] [address]44 Aug, [facility] [place] [facility] [address] [id number] [place] [address] Jul, [facility] [place] [facility] [address] [id number] [place] [address] Jul, [facility] [place] [facility] [address] [id number] [place] [address] 93[address] June, [facility] [place] [facility] [address] [id number] [place] [address] June, [facility] [place] [facility] [address] [id number] [place] [address] June, [facility] [place] [facility] [address] [id number] [place] [address] 75[address] June, [facility] [address] [id number] [place] [address] June, [facility] [address] [id number] [place] [address] June, [facility] [address] [id number] [place] [address] June, [facility] [address] [id number] [place] [address] June, [facility] [address] [id number] [place] [address] June, [facility] [address] [id number] [place] [address] June, [facility] [address] [id number] [place] [address] June, [facility] [address] [id number] [place] [address] May, [facility] [address] [id number] [place] [address] 230[address] May, [facility] [address] [id number] [place] [address] May, [facility] [address] [id number] [place] [address]- [address]184 May, [facility] [address] [id number] [place] [address] 47[address] Apr, [facility] [place] [facility] [address] [id number] [place] [address]- [address] Apr, [facility] [address] [id number] [place] [address]- [address] Apr, [facility] [address] [id number] [place] [address]262 Mar, [facility] [address] [id number] [place] [address]- [address] Mar, [facility] [address] [id number] [place] [address] 8816 Feb, [facility] [address] [id number] [place] [address]- 1135 Feb, [facility] [place] [facility] [address] [id number] [place] [address] 8904 Feb, [facility] [address] [id number] [place] [address]- [address] Feb, [facility] [address] [id number] [place] [address]- 6974 Feb, [facility] [address] [id number] [place] [address]- 6962 Feb, [facility] [address] [id number] [place] [address]- 4119 Feb, [facility] [address] [id number] [place] [address]- 2714 Jan, [facility] [address] [id number] [place] [address]- 0173 Jan, [facility] [address] [id number] [place] [address]- [address] Jan, [facility] [place] [facility] [address] [id number] [place] [address]- 5234 Jan, [facility] [place] [facility] [address] [id number] [place] [address]- 4078 Jan, [facility] [place] [facility] [address] [id number] [place] [address]- 4870 Jan, [facility] [place] [facility] [address] [id number] [place] [address]- 8706 Jan, [facility] [place] [facility] [address] [id number] [place] [address] 10 Jan, 2012 [facility] [place] [facility] [address] [id number] [place] [address] Jan, [facility] [place] [facility] [address] [id number] [place] [address] Jan, [facility] [address] [id number] [place] [address] Jan, [facility] [place] [facility] [address] [id number] [place] [address] Dec, [facility] [place] [facility] [address] [id number] [place] [address] Dec, [facility] [place] [facility] [address] [id number] [place] [address] Dec, [facility] [place] [facility] [address] [id number] [place] [address] Dec, [facility] [address] [id number] [place] [address] Nov, [facility] [place] [facility] [address] [id number] [place] [address] Nov, [facility] [address] [id number] [place] [address] 08 Nov, 2011 [facility] [place] [facility] [address] [id number] [place] [address] 27 Oct, 2011 [facility] [place] [facility] [address] [id number] [place] [address] 24 Sep2011 [facility] [place] [facility] [address] [id number] [place] [address] 29[address] 21 Oct, 2011 [facility] [place] [facility] [address] [id number] [place] [address] 10 Oct, 2011 [facility] [place] [facility] [address] [id number] [place] [address] Oct, [facility] [place] [facility] [address] [id number] [place] [address] 288[address] Oct, [facility] [place] [facility] [address] [id number] [place] [address] 2456 Oct, [facility] [place] [facility] [address] [id number] [place] [address]- 2851 Sep, [facility] [place] [facility] [address] [id number] [place] [address] 58[address] Sep, [facility] [place] [facility] [address] [id number] [place] [address] 8064 Sep, [facility] [place] [facility] [address] [id number] [place] [address] Sep, [facility] [place] [facility] [address] [id number] [place] [address]- 9518 Sep, [facility] [place] [facility] [address] [id number] [place] [address] 6[address] Aug, [facility] [place] [facility] [address] [id number] [place] [address] Aug, [facility] [place] [facility] [address] [id number] [place] [address] 7149 Aug, [facility] [place] [facility] [address] [id number] [place] [address] 16 Aug, 2011 [facility] [place] [facility] [address] [id number] [place] [address]- 4186 Aug, [facility] [place] [facility] [address] [id number] [place] [address]106 Aug, [facility] [place] [facility] [address] [id number] [place] [address] 2887 Aug, [facility] [place] [facility] [address] [id number] [place] [address] 6[address] Jul, [facility] [place] [facility] [address] [id number] [place] [address] 80[address] Jul, [facility] [place] [facility] [address] [id number] [place] [address] 77[address] Jul, [facility] [place] [facility] [address] [id number] [place] [address] 4927 Jul, [facility] [place] [facility] [address] [id number] [place] [address] 9[address] Jul, [facility] [place] [facility] [address] [id number] [place] [address] 3996 Jul, [facility] [place] [facility] [address] [id number] [place] [address] 2848 07 Jul, 2011 [facility] [place] [facility] [address] [id number] [place] [address] 69[address] 06 Jul, 2011 [facility] [place] [facility] [address] [id number] [place] [address]- 8[address] 05 Jul, 2011 [facility] [place] [facility] [address] [id number] [place] [address]- 40[address] June, [facility] [place] [facility] [address] [id number] [place] [address]- [address] June, [facility] [place] [facility] [address] [facility] [id number] [place] [address] 34[address] June, [facility] [place] [facility] [address] [id number] [place] [address] 65[address] June, [facility] [place] [facility] [address] [id number] [place] [address]- 88[address] June, [facility] [place] [facility] [address] [id number] [place] [address]- 0[address] June, [facility] [place] [facility] [address] [id number] [place] [address] 2896 June, [facility] [place] [facility] [address] [facility] [id number] [place] [address] June, [facility] [place] [facility] [address] [id number] [place] [address] May, [facility] [place] [facility] [address] [id number] [place] [address] 6366 23 May, 2011 [facility] [place] [facility] [address] [id number] [place] [address]- 6646 May, [facility] [place] [facility] [address] [id number] [place] [address]- 5626 May, [facility] [place] [facility] [address] [id number] [place] [address] 2546 May, [facility] [place] [facility] [address] [id number] [place] [address]- 0276 May, [facility] [place] [facility] [address] [id number] [place] [address]- 5323 May, [facility] [place] [facility] [address] [id number] [place] [address]- 6246 Apr, [facility] [place] [facility] [address] [id number] [place] [address]- 7857 Apr, [facility] [place] [facility] [address] [id number] [place] [address]- 5656 Apr, [facility] [place] [facility] [address] [id number] [place] [address]- 8727 Apr, [facility] [place] [facility] [address] [id number] [place] [address]- 1456 Apr, [facility] [place] [facility] [address] [id number] [place] [address]- 9221 Apr, [facility] [place] [facility] [address] [id number] [place] [address] Apr, [facility] [place] [facility] [address] [id number] [place] [address]- 1836 Mar, [facility] [place] [facility] [address] [id number] [place] [address]- 5794 Mar, [facility] [address] [id number] [place] [address] 4856 14 Mar, 2011 [facility] [place] [facility] [address] [id number] [place] [address] 6396 Mar, [facility] [address] [facility] [id number] [place] [address]- 6866 Mar, [facility] [place] [facility] [address] [id number] [place] [address]- 5767 Mar, [facility] [address] [id number] [place] [address]- 1711 Mar, [facility] [address] [id number] [place] [address]- 56[address] Feb, [facility] [address] [facility] [id number] [place] [address]- 4329 Feb, [facility] [place] [facility] [address] [id number] [place] [address]- 3454 Feb, [facility] [address] [facility] [id number] [place] [address]- 3227 Feb, [facility] [place] [facility] [address] [facility] [id number] [place] [address]- 4569 Feb, [facility] [address] [facility] [id number], [place] [address]- [address] Feb, [facility] [place] [facility] [address] [id number], [place] [address]- 5[address] Feb, [facility] [place] [facility] [address] [id number] [place] [address]- 6968 Feb, [facility] [place] [facility] [address] [facility] [id number] [place] [address]- 8084 Feb, [facility] [place] [facility] [address] [facility] [id number] [place] [address]- 4426 Feb, [facility] [place] [facility] [address] [id number] [place] [address]- 0710 27 Jan, 2011 [facility] [place] [facility] [address] [id number] [place] [address]- 5676 Jan, [facility] [place] [facility] [address] [id number] [place] [address] Jan, [facility] [place] [facility] [address] [id number] [place] [address]- 3586 Jan, [facility] [place] [facility] [address] [id number] [place] [address]- 5811 Jan, [facility] [place] [facility] [address] [id number] [place] [address]- 8911 Jan, [facility] [place] [facility] [address] [id number] [place] [address]- 1737 15 Jan, 2011 [facility] [place] [facility] [address] [id number] [place] [address]- 1529 15 Jan, 2011 [facility] [place] [facility] [address] [id number] [place] [address]- 5475 Jan, [facility] [place] [facility] [address] [id number] [place] [address]- 7986 Jan, [facility] [place] [facility] [address] [id number] [place] [address] Jan, [facility] [place] [facility] [address] [id number] [place] [address]- 5290 17 Dec, 2010 [facility] [place] [facility] [address] [id number] [place] [address]- 2567 17 Dec, 2010 [facility] [place] [facility] [address] [id number] [place] [address]- 2686 17 Dec, 2010 [facility] [place] [facility] [address] [id number] [place] [address]- 0166 16 Dec, 2010 [facility] [place] [facility] [address] [id number] [place] [address]- 0559 14 Dec, 2010 [facility] [place] [facility] [address] [id number] [place] [address]- 2303 09 Dec, 2010 [facility] [place] [facility] [address] [id number] [place] [address]- 3451 08 Dec, 2010 [facility] [place] [facility] [address] [id number] [place] [address] Dec, [facility] [place] [facility] [address] [id number] [place] [address]- 6215 Dec, [facility] [place] [facility] [address] [id number] [place] [address]- 7103 Nov, [facility] [place] [facility] [address] [id number] [place] [address]- 1858 Nov, [facility] [place] [facility] [address] [id number] [place] [address]- 9204 Nov, [facility] [place] [facility] [address] [id number] [place] [address]- 7983 24 Nov, 2010 [facility] [place] [facility] [address] [id number] [place] [address]- 4573 24 Nov, 2010 [facility] [place] [facility] [address] [id number] [place] [address]- 3684 Nov, [facility] [place] [facility] [address] [id number], [place] [address]- 8556 Aug, [facility] [place] [facility] [address] [id number], [place] [address]- 9348 14 Feb, 2010 [facility] [place] [facility] [address] [id number] [place] [address]- 2693 14 Jan, 2010 [facility] [place] [facility] [address] [id number], [place] [address]- 4365 06 Jan, 2010 [facility] [place] [facility] [address] [id number] [place] [address]- 1011 Jan, [facility] [place] [facility] [address] [id number] [address] Jan, [facility] [id number] [address] Jan, [facility] [id number] [address] Dec, [facility] [id number] Dec, [facility] [id number], [place] [address]- 0765 Dec, [facility] [id number] [place] [address] 2132 Dec, [facility] [id number], [place] [address]- 0021 Nov, [facility] [id number] [address] [address] Nov, [facility] [id number], [place] [address]- 2012 Nov, IMMUNIZATIONS No Known Immunizations SOCIAL HISTORY Never Assessed REASON FOR VISIT Hep C note PLAN OF CARE VITAL SIGNS MEDICATIONS [...]
--- OUTSIDE RECORDS SUMMARY | 2018-01-13 21:26 | XMS REPORT ---
Author Author AUTUMN SALAZAR Organization [employer] Address Unknown Phone Unavailable Care Team Providers Care Audio Installer Name Role Phone AUTUMN SALAZAR CP Unavailable Allergies No Known Allergies Problems Problem Type Condition ICD-9 Code Onset Dates Condition Status Problem Closed fracture of shaft of radius with ulna 813.23 Active Problem Pain in joint, pelvic region and thigh 719.45 Active Problem Other and unspecified diseases of the oral soft tissues 528.9 Active Problem Contact dermatitis and other eczema due to plants (except food) 692.6 Active Problem Unspecified episodic mood disorder 296.90 Active Problem Spontaneous ecchymoses 782.7 Active Problem Cellulitis and abscess of unspecified site 682.9 Active Problem Pain in soft tissues of limb 729.5 Active Problem Combinations of drug dependence excluding opioid type drug, 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
--- OUTSIDE RECORDS SUMMARY | 2018-01-13 21:27 | XMS REPORT ---
Author Author WYATT SOTO Organization 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 Active 16051809 Problem Unspecified episodic mood disorder F39 Active 61718469 Problem Hypertension I10 Active 73539452 Problem Venous insufficiency (chronic) (peripheral) I87.2 Active 959033338 Problem Gastroesophageal reflux disease, esophagitis presence not specified K21.9 Active 557425070 Problem Other chronic pain G89.29 Active 54873826 Problem Chronic hepatitis C without hepatic coma B18.2 Active 672491410 Problem Other psychoactive substance dependence, uncomplicated F19.20 Active 2851680 Problem 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 [address] [place] [address] 76587- 2150 May, [facility] [address] [place] [address] 78792 -7437 May, Dysuria R30.0 ; Abscess L02.91 and Acute cystitis without hematuria N30.00 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 [address] [place] [address] 24963- 7994 May, 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 [id number] [place] [address] 09686- 1725 Apr, [facility] [id number] [place] [address] 42430 -4958 Apr, Neck pain M54.2 ; Left hip pain M25.552 and Fall, initial encounter W19.XXXA 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 [id number] [place] [address] 97519- 0482 Apr, [facility] [id number] [place] [address] 71451- 8635 Apr, Arthritis M19.90 and Unspecified episodic mood disorder F39 [facility] [id number] [place] [address] 20036- 2275 Apr, Unspecified episodic mood disorder F39 [facility] [id number] [place] [address] 83854- 5895 Apr, [facility] [address] [place] [address] 60102- 4375 Apr, 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 [address] [place] [address] 36659- 6048 Mar, Unspecified episodic mood disorder F39 [facility] [id number] [place] [address] 12437- 9876 Mar, Gastroesophageal reflux disease, esophagitis presence not specified K21.9 [facility] [id number] [place] [address] 28181- 5443 Mar, Arthritis M19.90 and Unspecified episodic mood disorder F39 [facility] [address] [place] [address] 13059- 0578 Feb, [facility] [id number] [place] [address] 69907- 8368 Feb, [facility] [address] [place] [address] 65381- 2875 Feb, [facility] [id number] [place] [address] 44329- 0989 Feb, Arthritis M19.90 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 [address] [place] [address] 92910- 6646 Feb, [facility] [address] [address]- 0203 Feb, [facility] [id number] [place] [address] 46887- 4185 Jan, Arthritis M19.90 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 [id number] [place] [address] 50195- 4744 Jan, Chronic hepatitis C without hepatic coma B18.2 [facility] [address] [place] [address] 90201- 6036 Jan, Encounter for immunization Z23 ; Venous insufficiency ( chronic) (peripheral) I87.2 ; Non-pressure chronic ulcer of unspecified calf limited to breakdown of skin L97.201 and Gastroesophageal reflux disease, esophagitis presence not specified K21.9 [facility] [id number] [place] [address] 46856- 8601 Jan, [facility] [address] [place] [address] 00353- 2420 Jan, Chronic hepatitis C without hepatic coma B18.2 and Encounter for immunization Z23 [facility] [id number] [place] [address] 72317- 0059 Jan, Arthritis M19.90 [facility] [address] [place] [address] 51527- 9512 Jan, [facility] [id number] [place] [address] 85099- 6342 Dec, [place] [address] [place] [address] 32355- 1629 Dec, Unspecified episodic mood disorder F39 [facility] [address] [place] [address] 48248- 5273 Dec, Arthritis M19.90 [facility] [id number] [place] [address] 87251- 3793 Dec, Arthritis M19.90 [facility] [id number] [place] [address] 23245- 7607 Nov, [facility] [id number] [place] [address] 51404- 8171 Nov, 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 [id number] [place] [address] 63347- 5492 Nov, Arthritis M19.90 [facility] [id number] [place] [address] 23976 -3517 Oct, Partial thickness burn of abdomen, initial encounter T21.22XA [facility] [id number] [place] [address] 47322- 3256 Oct, [facility] [id number] [place] [address] 23175- 7210 Sep, Arthritis M19.90 [facility] [id number] [place] [address] 08478- 5715 Sep, [facility] [id number] [place] [address] 80975- 4493 Sep, [facility] [id number] [place] [address] 52541- 4393 Sep, Unspecified episodic mood disorder F39 ; Chronic hepatitis C without hepatic coma B18.2 and Left hip pain M25.552 [facility] [address] [place] [address] 80893- 9786 Sep, Arthritis M19.90 and Left hip pain M25.552 [facility] [address], [place] [address]- 7981 Aug, [facility] [address], [place] [address]- 1614 Aug, [facility] [address], [place] [address]- 1216 Aug, Chronic hepatitis C without hepatic coma B18.2 [facility] [id number] [place] [address] 12531- 4140 Aug, [facility] [address] [place] [address] 19823- 6642 Aug, Chronic hepatitis C without hepatic coma B18.2 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 [address] [place] [address] 20449- 2437 Aug, [facility] [address], [place] [address]- 8125 Aug, Chronic hepatitis C without hepatic coma B18.[address] [facility] [address], [place] [address]- 0173 Jul, [facility] [address], [place] [address]- 1172 June, [facility] [address], [place] [address]- 8609 Apr, Fibromyalgia M79.7 ; Left hip pain M25.552 and Decubitus ulcer of sacral region, stage [address] [facility] [address], [place] [address]- 6748 Apr, [facility] [address] [address] 3076 Apr, [facility] [address], [place] [address]- 3537 Feb, 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 [id number] [place] [address] 87553- 7760 Dec, [facility] [id number] [place] [address] 53799- 1660 Nov, [facility] [id number] [place] [address] 03734- 8373 Nov, [facility] [id number] [place] [address] 83067- 8370 Nov, Other disorder of impulse control F63.[address] [facility] [id number] [place] [address] 66603- 1354 Oct, [facility] [id number] [place] [address] 65368 -6886 14 Oct, 2015 Open wound of left thigh, initial encounter S71.102A [facility] [id number] [place] [address] 65295- 9929 Oct, [facility] [address] [place] [address] 09674- 9354 Sep, Unspecified episodic mood disorder F39 ; Other disorder of impulse control 312.39 ; Combined drug dependence excluding opioids, with abuse F19.[address] 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 [address] [place] [address] 85783- 9173 Sep, Other chronic pain G89.29 [facility] [address], [place] [address]- 6404 Sep, [facility] [address] [place] [address] 17101- 6916 Sep, [facility] [address], [place] [address]- 0244 Aug, [facility] [id number] [place] [address] 11421- 8940 Aug, [facility] [address] [place] [address] 74947- 2555 Aug, [facility] [id number] [place] [address] 31602- 7748 Jul, [facility] [id number] [place] [address] 47919- 5656 Jul, [facility] [id number] [place] [address] 11646- 0845 Jul, [facility] [id number] [place] [address] 22328- 4163 Jul, Arthritis M19.90 ; Chronic hepatitis C without hepatic coma B18.2 and Left hip pain M25.552 [facility] [address], [place] [address]- 9084 Jul, Left knee pain M25.562 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 [address], [place] [address]- 1253 Jul, Left knee pain M25.562 [facility] [address] [place] [address] 02850- 9863 08 Jul, 2015 Left knee pain M25.562 and Left hip pain M25.552 [facility] [address], [place] [address]- 6397 Jul, [facility] [id number] [place] [address] 01159- 7930 June, [facility] [id number] [place] [address] 00410- 7448 June, Combinations of drug dependence excluding opioid type drug, unspecified abuse 304.80 ; Other disorder of impulse control 312.39 ; Unspecified episodic mood disorder F39 and Anxiety F41.9 [place] [address] [place] [address] 44223- 7171 June, Other fatigue R53.83 ; Headache R51 and Left knee pain M25.562 [facility] [address] [place] [address] 64576- 5490 June, Unspecified episodic mood disorder F39 ; Combinations of drug dependence excluding opioid type drug, unspecified abuse 304.80 ; Other disorder of impulse control 312.[address] [facility] [id number] [place] [address] 91353- 9988 June, Anxiety F41.9 [facility] [address] [place] [address] 46244- 0202 June, Pain in left knee M25.562 [facility] [address] [place] [address] 54280- 9348 June, Anxiety F41.9 and Combinations of drug dependence excluding opioid type drug, unspecified abuse 304.80 [facility] [address] [place] [address] 75302- 1302 June, Unspecified episodic mood disorder 296.90 ; Combinations of drug dependence excluding opioid type drug, unspecified abuse 304.80 and Other disorder of impulse control 312.39 [facility] [id number] [place] [address] 59793- 6547 June, Anxiety F41.9 and Unspecified episodic mood disorder 296.90 [facility] [address], [place] [address]- 5745 May, Arthritis M19.90 [facility] [address] [place] [address] 32369- 0288 May, Arthritis M19.90 [facility] [address] [place] [address] 38344- 4323 May, Anxiety F41.9 ; Combinations of drug dependence excluding opioid type drug, unspecified abuse 304.80 and Other disorder of impulse control 312.39 [facility] [id number] [place] [address] 01334- 6353 May, Left knee pain M25.562 [facility] [id number] [place] [address] 68054- 7036 May, Arthritis M19.90 [facility] [id number] [place] [address] 23776- 1947 May, [facility] [address] [place] [address] 10642- 0227 May, Anxiety F41.9 ; Unspecified episodic mood disorder 296.90 ; Combinations of drug dependence excluding opioid type drug, unspecified abuse 304.80 and Other disorder of impulse control 312.39 [facility] [address] [place] [address] 36608- 4422 May, Left knee pain M25.562 [facility] [address] [place] [address] 81062- 6227 May, Left knee pain M25.562 ; Combinations of drug dependence excluding opioid type drug, unspecified abuse 304.80 ; Other disorder of impulse control 312.39 ; Fibromyalgia M79.7 ; Hypertension I10 ; Unspecified episodic mood disorder 296.90 and Left hip pain M25.552 [facility] [address] [place] [address] 32354- 4322 May, Unspecified episodic mood disorder 296.90 ; Other disorder of impulse control 312.39 ; Combinations of drug dependence excluding opioid type drug, unspecified abuse 304.80 and Anxiety F41.[address] [place] [address] 41876- 0105 May, Left knee pain M25.562 ; Combinations of drug dependence excluding opioid type drug, unspecified abuse 304.80 ; Other disorder of impulse control 312.39 ; Fibromyalgia M79.7 ; Hypertension I10 ; Unspecified episodic mood disorder 296.90 and Left hip pain M25.552 [place] [id number] [place] [address] 77339- 3987 May, Anxiety F41.9 ; Unspecified episodic mood disorder 296.90 ; Other disorder of impulse control 312.39 and Combinations of drug dependence excluding opioid type drug, unspecified abuse 304.80 [place] [id number] [place] [address] 61704- 0169 Apr, 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 and 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, implants and grafts, initial encounter T84.82XA [address] [place] [address] 60800- 7962 Apr, Anxiety F41.9 ; Unspecified episodic mood disorder 296.90 ; Combinations of drug dependence excluding opioid type drug, unspecified abuse 304.80 and Other disorder of impulse control 312.39 [place] [address], [place] [address]- 6041 Apr, Arthritis M19.90 [place] [address] [place] [address] 66537- 3846 Apr, Anxiety F41.9 ; Unspecified episodic mood disorder 296.90 ; Combinations of drug dependence excluding opioid type drug, unspecified abuse 304.80 and Other disorder of impulse control 312.39 [place] [address] [place] [address] 54808- 0226 Apr, Arthritis M19.90 [place] [id number] [place] [address] 66321- 2938 15 Apr, 2015 [facility] [address] [place] [address] 91738- 1907 [address], [address] [facility] [id number] [place] [address] 28703- 6549 14 Apr, 2015 Unspecified episodic mood disorder 296.90 ; Combinations of drug dependence excluding opioid type drug, unspecified abuse 304.80 ; Other disorder of impulse control 312.39 and Anxiety F41.9 [facility] [address] [place] [address] 21298 -9763 11 Apr, 2015 Left knee pain M25.562 [facility] [id number] [place] [address] 15535- 7209 11 Apr, 2015 [facility] [address] [place] [address] 71122- 3612 Mar, Unspecified episodic mood disorder 296.90 ; Anxiety F41.9 ; Other disorder of impulse control 312.39 and Combinations of drug dependence excluding opioid type drug, unspecified abuse 304.80 [facility] [id number] [place] [address] 81180- 2757 Mar, Hyperpigmentation L81.9 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 [id number] [place] [address] 46753- 4763 12 Mar, 2015 Well woman exam Z01.419 ; Other fatigue R53.83 ; Hot flashes N95.1 ; Depression, unspecified depression type F32.9 and Body mass index (BMI) of 23.0-23.9 in adult Z68.23 [place] [address] 22185- 9873 11 Mar, 2015 Unspecified episodic mood disorder 296.90 ; Other disorder of impulse control 312.39 and Anxiety F41.9 [place] [address] 70333- 0448 11 Mar, 2015 Well woman exam Z01.419 [...] of breast Z12.39 and Limited mobility Z74.09 [place] [address] 27074- 4909 Mar, [place] [address] 80105- 1569 Mar, [place] [address] 10387- 6063 Mar, [place] [address] 55315- 0328 Mar, Other specified complication of internal orthopedic prosthetic devices, implants and grafts, initial encounter T84.89XA ; Fibromyalgia M79.7 ; Hypertension I10 ; Anemia D64.9 ; Insomnia G47.00 ; Anxiety F41.9 ; Arthritis M19.90 and Migraine G43.909 [place] [address] 60444- 2014 Mar, [place] [address] 95680- 8374 Feb, [facility] [address], [place] [address]- 1642 Feb, Arthritis M19.[address] [facility] [address], [place] [address]- 4496 Feb, [facility] [id number] [place] [address] 63588- 2378 Feb, [facility] [address] [address] 3177 Feb, [facility] [id number] [place] [address] 07239- 5075 Feb, [facility] [address], [place] [address] Feb, Anxiety F41.9 [facility] [id number] [place] [phone]- [phone] Feb, [facility] [id number], [place] [address] Feb, 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 [address], [place] [address] Feb, [facility] [id number] [address] Jan, [facility] [address] [address] Jan, [facility] [id number] [address] Jan, [facility] [address] [address] Jan, [facility] [id number], [place] [address] 16 Jan, [address] [facility] [id number] [place] [phone]- [address] Jan, [facility] [facility] [id number] [place] [address] 03716- 0058 Jan, [facility] [id number] [place] [address] 05897- 2084 Jan, [facility] [id number] [place] [address] 95437- 7539 Dec, [facility] [id number] [place] [address] 57317- 3589 Dec, Left knee pain M25.562 [facility] [id number] [place] [address] 63055- 9987 Dec, Left knee pain M25.562 [facility] [id number] [place] [address] 50745- 4910 Dec, Fibromyalgia M79.7 ; Hypertension I10 [address]19.90 [facility] [id number] [place] [address] 10413- 4744 Dec, [facility] [id number] [place] [address] 24983- 6790 Dec, [facility] [id number] [place] [address] 02249- 6189 Dec, [facility] [id number] [place] [address] 49472- 1698 Dec, [facility] [id number] [place] [address] 97671- 0289 Nov, [facility] [id number] [place] [address] 55509- 9322 Nov, [facility] [id number] [place] [address] 45333- 1651 Nov, [facility] [address] [id number], [place] [address]- 7590 Nov, Hypertension I10 [facility] [place] [facility] [address] [id number] [place] [address]- 5291 23 Oct, 2014 [facility] [place] [facility] [address] [id number] [place] [address]- 9790 17 Oct, 2014 [facility] [place] [facility] [address] [id number], [place] [address]- 2979 Oct, 2014 [facility] [place] [facility] [address] [id number] [place] [address]- 5677 Oct, [facility] [address] [id number] [place] [address] 49953- 4839 Oct, [facility] [address] [facility] [id number] [place] [address]- 2914 Sep, [facility] [place] [facility] [address] [id number], [place] [address]- 7336 Sep, [facility] [address] [facility] [id number], [place] [address]- 2835 Sep, Hip pain associated with recalled total hip arthroplasty hardware 996.77 [facility] [address] [id number], [place] [address]- 4235 Sep, [facility] [place] [facility] [address] [facility] [id number], [place] [address]- 2905 Sep, [facility] [place] [facility] [address] [id number], [place] [address]- 5521 Sep, [facility] [place] [facility] [address] [facility] [id number], [place] [address]- 8665 Aug, [facility] [place] [facility] [address] [facility] [id number], [place] [address]- 0973 Jul, [facility] [place] [facility] [address] [facility] [id number], [place] [address]- 7626 June, [facility] [place] [facility] [address] [id number] [place] [address]- 5278 June, [facility] [place] [facility] [address] [id number] [place] [address]- 8014 June, [facility] [place] [facility] [address] [id number] [place] [address]- 8086 June, [facility] [place] [facility] [address] [id number] [place] [address]- 1757 June, [facility] [place] [facility] [address] [id number] [place] [address]- 9258 June, [facility] [place] [facility] [address] [id number] [place] [address]- 8317 May, [facility] [place] [facility] [address] [id number] [place] [address]- 0231 May, [facility] [place] [facility] [address] [id number] [place] [address]- 4805 May, [facility] [place] [facility] [address] [id number] [place] [address]- 0225 Apr, [facility] [place] [facility] [address] [id number] [place] [address]- 1090 Apr, [facility] [place] [facility] [address] [id number] [place] [address]- 6633 Apr, [facility] [place] [facility] [address] [id number] [place] [address]- 4294 Apr, [facility] [place] [facility] [address] [id number] [place] [address]- 7943 Apr, [facility] [place] [facility] [address] [id number] [place] [address]- 6812 Apr, [facility] [place] [facility] [address] [id number] [place] [address]- 1080 Apr, [facility] [place] [facility] [address] [id number] [place] [address]- 6528 Apr, [facility] [place] [facility] [address] [id number] [place] [address]- 2909 Apr, [facility] [place] [facility] [address] [id number] [place] [address]- 0392 Apr, [facility] [place] [facility] [address] [facility] [id number] [place] [address]- 9741 Apr, [facility] [place] [facility] [address] [id number] [place] [address]- 7020 Mar, [facility] [place] [facility] [address] [id number] [place] [address]- 5676 Mar, [facility] [place] [facility] [address] [id number] [place] 8342 Mar, [facility] [place] [facility] [address] [facility] [id number] [place] [address]- 8564 Mar, [facility] [place] [facility] [address] [facility] [id number] [place] [address]- 7537 Mar, [facility] [place] [facility] [address] [facility] [id number] [place] [address]- 2476 Mar, [facility] [place] [facility] [address] [facility] [id number] [place] [address]- 4826 Feb, [facility] [place] [facility] [address] [facility] [id number] [place] [address]- 6512 Feb, [facility] [place] [facility] [address] [id number] [place] [address]- 3176 Feb, [facility] [place] [facility] [address] [id number] [place] [address]- 0969 Feb, [facility] [place] [facility] [address] [facility] [id number] [place] 0981 Jan, [facility] [place] [facility] [address] [facility] [id number] [place] [address]- 8737 Jan, [facility] [place] [facility] [address] [id number] [place] [address]- 1952 Jan, [facility] [place] [facility] [address] [id number] [place] [address]- 8746 Jan, [facility] [place] [facility] [address] [id number] [place] [address]- 8691 Dec, [facility] [place] [facility] [address] [id number] [place] [address]- 5259 Dec, [facility] [place] [facility] [address] [id number] [place] [address]- 3125 Dec, [facility] [place] [facility] [address] [id number] [place] [address]- 2565 Dec, [facility] [place] [facility] [address] [id number] [place] [address]- 5604 Dec, [facility] [place] [facility] [address] [id number] [place] [address]- 3977 Dec, [facility] [place] [facility] [address] [id number] [place] [address]- 3992 Dec, [facility] [place] [facility] [address] [id number] [place] [address]- 9692 Dec, [facility] [place] [facility] [address] [id number] [place] [address]- 5901 Dec, [facility] [place] [facility] [address] [id number] [place] [address]- 0443 Dec, [facility] [place] [facility] [address] [id number] [place] [address]- 0017 Dec, [facility] [place] [facility] [address] [id number] [place] [address]- 3924 Nov, [facility] [place] [facility] [address] [id number] [place] [address]- 1831 Nov, [facility] [place] [facility] [address] [id number] [place] [address]- 8434 28 Nov, 2013 [facility] [place] [facility] [address] [id number] [place] [address]- 7180 17 Nov, 2013 [facility] [place] [facility] [address] [id number] [place] [address]- 2258 17 Nov, 2013 [facility] [place] [facility] [address] [id number] [place] [address]- 8066 15 Nov, 2013 [facility] [place] [facility] [address] [id number] [place] [address]- 1549 15 Nov, 2013 [facility] [place] [facility] [address] [id number] [place] [address]- 8788 15 Nov, 2013 [facility] [place] [facility] [address] [id number] [place] [address]- 9870 15 Nov, 2013 [facility] [place] [facility] [address] [id number] [place] [address]- 4855 14 Nov, 2013 [facility] [place] [facility] [address] [id number] [place] [address]- 8274 14 Nov, 2013 [facility] [place] [facility] [address] [id number] [place] [address]- 5393 14 Nov, 2013 [facility] [place] [facility] [address] [id number] [place] [address]- 1203 14 Nov, 2013 [facility] [place] [facility] [address] [id number], [place] [address]- 5627 13 Nov, 2013 [facility] [place] [facility] [address] [id number], [place] [address]- 8089 13 Nov, 2013 [facility] [place] [facility] [address] [id number] [place] [address]- 6714 11 Nov, 2013 [facility] [place] [facility] [address] [id number] [place] [address]- 2445 11 Nov, 2013 [facility] [place] [facility] [address] [id number] [place] [address]- 9725 07 Nov, 2013 [facility] [place] [facility] [address] [id number] [place] [address]- 1696 07 Nov, 2013 [facility] [place] [facility] [address] [id number] [place] [address]- 4203 07 Nov, 2013 [facility] [place] [facility] [address] [id number] [place] [address]- 8246 07 Nov, 2013 [facility] [place] [facility] [address] [id number] [place] [address]- 4038 30 Sep, 2013 [facility] [place] [facility] [address] [id number] [place] [address]- 2543 30 Sep, 2013 [facility] [place] [facility] [address] [id number] [place] [address]- 8005 26 Oct, 2013 [facility] [place] [facility] [address] [id number] [place] [address]- 9370 26 Oct, 2013 [facility] [place] [facility] [address] [id number] [place] [address]- 2856 22 Oct, 2013 [facility] [place] [facility] [address] [id number] [place] [address]- 8267 22 Oct, 2013 [facility] [place] [facility] [address] [id number] [place] [address] 2547 18 Oct, 2013 [facility] [place] [facility] [address] [id number] [place] [address]- 254 18 Sep, 2013 [facility] [place] [facility] [address] [id number] [place] [address] 2548 18 Sep, 2013 [facility] [place] [facility] [address] [id number] [place] [address]- 2540 18 Sep, 2013 [facility] [place] [facility] [address] [id number] [place] [address] 2542 12 Oct, 2013 [facility] [place] [facility] [address] [id number] [place] [address]- 2549 12 Oct, 2013 [facility] [place] [facility] [address] [id number] [place] [address]- 0545 Oct, [facility] [place] [facility] [address] [id number] [place] [address]- 0265 Oct, [facility] [place] [facility] [address] [id number] [place] [address]- 4453 Sep, [facility] [place] [facility] [address] [id number] [place] [address]- 2261 Sep, [facility] [place] [facility] [address] [id number] [place] [address]- 2261 Sep, [facility] [place] [facility] [address] [id number] [place] [address]- 1668 Sep, [facility] [place] [facility] [address] [id number] [place] [address]- 1015 Sep, [facility] [place] [facility] [address] [id number] [place] [address]- 1161 Sep, [facility] [place] [facility] [address] [id number] [place] [address]- 2702 Sep, [facility] [place] [facility] [address] [id number] [place] [address]- 8804 Sep, [facility] [place] [facility] [address] [id number] [place] [address]- 8968 Sep, [facility] [place] [facility] [address] [id number] [place] [address]- 8180 Sep, [facility] [place] [facility] [address] [id number] [place] [address]- 8193 Sep, [facility] [place] [facility] [address] [id number] [place] [address]- 8921 Sep, [facility] [place] [facility] [address] [id number] [place] [address]- 2499 Sep, [facility] [place] [facility] [address] [id number] [place] [address]- 7769 Sep, [facility] [place] [facility] [address] [id number] [place] [address]- 2227 Sep, [facility] [place] [facility] [address] [id number] [place] [address]- 2069 Sep, [facility] [place] [facility] [address] [id number] [place] 5630 Sep, [facility] [place] [facility] [address] [id number] [place] [address]- 6528 Sep, [facility] [place] [facility] [address] [id number] [place] [address]- 3122 Aug, [facility] [place] [facility] [address] [id number] [place] [address]- 9240 Aug, [facility] [place] [facility] [address] [id number] [place] [address]- 7549 Aug, [facility] [place] [facility] [address] [id number] [place] [address]- 2680 Aug, [facility] [place] [facility] [address] [id number] [place] [address]- 1805 Aug, [facility] [place] [facility] [address] [id number] [place] [address]- 7197 Aug, [facility] [place] [facility] [address] [id number] [place] [address]- 2429 Jul, [facility] [place] [facility] [address] [id number] [place] [address]- 7242 Jul, [facility] [place] [facility] [address] [id number] [place] [address]- 6841 Jul, [facility] [place] [facility] [address] [id number] [place] [address]- 2025 Jul, [facility] [place] [facility] [address] [id number] [place] [address]- 6295 June, [facility] [place] [facility] [address] [id number] [place] [address]- 6326 June, [facility] [place] [facility] [address] [id number] [place] [address]- 9587 June, [facility] [place] [facility] [address] [id number] [place] [address]- 7700 June, [facility] [place] [facility] [address] [id number] [place] [address]- 6829 June, [facility] [place] [facility] [address] [id number] [place] [address]- 4011 June, [facility] [place] [facility] [address] [id number] [place] [address]- 9364 June, [facility] [place] [facility] [address] [id number] [place] [address]- 4738 May, [facility] [place] [facility] [address] [id number] [place] [address]- 2651 May, [facility] [place] [facility] [address] [id number] [place] [address]- 5868 May, [facility] [place] [facility] [address] [id number] [place] [address]- 1432 May, [facility] [place] [facility] [address] [id number] [place] [address]- 4817 May, [facility] [place] [facility] [address] [id number] [place] [address]- 5658 May, [facility] [place] [facility] [address] [id number] [place] [address]- 9475 31 Apr, 2013 [facility] [place] [facility] [address] [id number] [place] [address]- 8804 31 Apr, 2013 [facility] [place] [facility] [address] [id number] [place] [address]- 6086 28 Apr, 2013 [facility] [place] [facility] [address] [id number] [place] [address]- 8366 28 Apr, 2013 [facility] [place] [facility] [address] [id number] [place] [address]- 9175 14 Apr, 2013 [facility] [place] [facility] [address] [id number] [place] [address]- 1206 14 Apr, 2013 [facility] [place] [facility] [address] [id number] [place] [address]- 9243 Apr, [facility] [place] [facility] [address] [id number] [place] [address]- 3672 Apr, [facility] [place] [facility] [address] [id number] [place] [address]- 7065 Apr, [facility] [place] [facility] [address] [id number] [place] [address]- 0052 Apr, [facility] [place] [facility] [address] [id number] [place] [address]- 1012 04 Apr, 2013 [facility] [place] [facility] [address] [id number] [place] [address]- 3446 Apr, [facility] [place] [facility] [address] [id number] [place] [address]- 5835 Apr, [facility] [place] [facility] [address] [id number] [place] [address]- 3689 Apr, [facility] [place] [facility] [address] [id number] [place] [address]- 9059 Mar, [facility] [place] [facility] [address] [id number] [place] [address]- 9132 Mar, [facility] [place] [facility] [address] [id number] [place] [address]- 8785 Mar, [facility] [place] [facility] [address] [id number] [place] [address]- 7418 Feb, [facility] [place] [facility] [address] [id number] [place] [address]- 2300 Feb, [facility] [place] [facility] [address] [id number] [place] [address]- 5098 Feb, [facility] [place] [facility] [address] [id number] [place] [address]- 9968 Feb, [facility] [address] [id number] [place] [address]- 0563 Feb, [facility] [address] [id number] [place] [address]- 0332 Feb, [facility] [address] [id number] [place] [address]- 2543 Feb, [facility] [address] [id number] [place] [address]- 2024 Feb, [facility] [address] [id number] [place] [address]- 4180 Feb, [facility] [address] [id number] [place] [address]- 2094 Feb, [facility] [address] [id number] [place] [address]- 5613 Jan, [facility] [address] [id number] [place] [address]- 2681 Jan, [facility] [address] [id number] [place] [address]- 2441 Jan, [facility] [address] [id number] [place] [address]- 0571 Jan, [facility] [address] [id number] [place] [address]- 2543 Jan, [facility] [address] [id number] [place] [address]- 8625 Jan, [facility] [place] [facility] [address] [id number] [place] [address]- 4599 Jan, [facility] [place] [facility] [address] [id number] [place] [address]- 3564 Jan, [facility] [place] [facility] [address] [id number] [place] [address] Jan, [facility] [place] [facility] [address] [id number] [place] [address] Jan, [facility] [address] [id number] [place] [address] Jan, [facility] [address] [id number] [place] [address] Jan, [facility] [address] [id number] [place] [address] 16 Jan, 2013 [facility] [address] [id number] [place] [address] Jan, [facility] [address] [id number] [place] [address] Jan, [facility] [address] [id number] [place] [address] Jan, [facility] [address] [id number] [place] [address] Jan, [facility] [address] [id number] [place] [address] Jan, [facility] [address] [id number] [place] [address] Jan, [facility] [address] [id number] [place] [address] Jan, [facility] [address] [id number] [place] [address] Jan, [facility] [place] [facility] [address] [id number] [place] [address] Dec, [facility] [place] [facility] [address] [id number] [place] [address] Dec, [facility] [address] [id number] [place] [address] Dec, [facility] [place] [facility] [address] [id number], [place] [address] Dec, [facility] [place] [facility] [address] [id number] [place] [address]95 Dec, [facility] [place] [facility] [address] [id number], [place] [address] Dec, [facility] [place] [facility] [address] [id number] [place] [address]- [address]68 Dec, [facility] [place] [facility] [address] [id number], [place] [address] Dec, [facility] [place] [facility] [address] [id number] [place] [address] Dec, [facility] [place] [facility] [address] [id number] [place] [address]- [address]65 Dec, [facility] [place] [facility] [address] [id number], [place] [address] Nov, [facility] [place] [facility] [address] [id number], [place] [address] Nov, [facility] [place] [facility] [address] [id number], [place] [address] Nov, [facility] [place] [facility] [address] [id number], [place] [address] Nov, [facility] [place] [facility] [address] [id number], [place] [address] Nov, [facility] [place] [facility] [address] [id number], [place] [address] 11 Nov, 2012 [facility] [place] [facility] [address] [id number], [place] [address] Nov, [facility] [place] [facility] [address] [id number], [place] [address] 11 Nov, 2012 [facility] [place] [facility] [address] [id number], [place] [address] 10 Nov, 2012 [facility] [place] [facility] [address] [id number] [place] [address] Nov, [facility] [address] [id number] [place] [address]679 Oct, [facility] [place] [facility] [address] [id number] [place] [address] Oct, [facility] [address] [id number] [place] [address] 3866 Oct, [facility] [address] [id number] [place] [address]- [address] Oct, [facility] [address] [id number] [place] [address] Oct, [facility] [address] [id number] [place] [address] Sep, [facility] [address] [id number] [place] [address]- [address] Sep, [facility] [address] [id number] [place] [address]81 Aug, [facility] [address] [id number] [place] [address] Aug, [facility] [address] [id number] [place] [address] Aug, [facility] [address] [id number] [place] [address]- 46[address] Aug, [facility] [address] [id number] [place] [address]- 77[address] Aug, [facility] [place] [facility] [address] [id number] [place] [address]- 1518 Aug, [facility] [address] [id number] [place] [address]- 2546 Aug, [facility] [address] [id number] [place] [address] Jul, [facility] [address] [id number] [place] [address] Jul, [facility] [address] [id number] [place] [address] June, [facility] [address] [id number] [place] [address] June, [facility] [address] [id number] [place] [address] 8714 June, [facility] [address] [id number] [place] [address]- 8983 June, [facility] [address] [id number] [place] [address]- 12[address] June, [facility] [address] [id number] [place] [address] June, [facility] [address] [id number] [place] [address]907 June, [facility] [address] [id number] [place] [address] 9934 June, [facility] [address] [id number] [place] [address] 68[address] June, [facility] [address] [id number] [place] [address]- 5216 June, [facility] [place] [facility] [address] [id number] [place] [address]- [address] June, [facility] [place] [facility] [address] [id number] [place] [address]- 8312 May, [facility] [place] [facility] [address] [id number] [place] [address]- 3749 May, [facility] [place] [facility] [address] [id number] [place] [address]- 9297 May, [facility] [place] [facility] [address] [id number] [place] [address]- [address]66 05 May, 2012 [facility] [address] [id number] [place] [address]- 3827 Apr, [facility] [address] [id number] [place] [address]- 4506 Apr, [facility] [address] [id number] [place] [address]- 3036 Apr, [facility] [facility] [address] [id number] [place] [address] Mar, [facility] [address] [id number] [place] [address] Mar, [facility] [address] [id number] [place] [address] 38[address] Feb, [facility] [address] [id number] [place] [address] Feb, [facility] [address] [id number] [place] [address] 69[address] Feb, [facility] [address] [id number] [place] [address] Feb, [facility] [address] [id number] [place] [address] 16 Feb, 2012 [facility] [address] [id number] [place] [address] 94[address] Feb, [facility] [address] [id number] [place] [address] 78[address] Feb, [facility] [address] [id number] [place] [address] Jan, [facility] [place] [facility] [address] [id number] [place] [address] 6566 Jan, [facility] [address] [id number] [place] [address] 63[address] Jan, [facility] [place] [facility] [address] [id number] [place] [address] 2676 Jan, [facility] [place] [facility] [address] [id number] [place] [address] 6885 Jan, [facility] [place] [facility] [address] [id number] [place] [address]- 7517 Jan, [facility] [place] [facility] [address] [id number] [place] [address] 7994 Jan, [facility] [place] [facility] [address] [id number] [place] [address]- 9196 Jan, [facility] [place] [facility] [address] [id number] [place] [address]- 4208 Jan, [facility] [place] [facility] [address] [id number] [place] [address]- 1065 Jan, [facility] [place] [facility] [address] [id number] [place] [address]- 5751 Jan, [facility] [place] [facility] [address] [id number] [place] [address]- 1388 Dec, [facility] [place] [facility] [address] [id number] [place] [address]- 9608 Dec, [facility] [place] [facility] [address] [id number] [place] [address]- 6941 Dec, [facility] [place] [facility] [address] [id number] [place] [address]- 4244 Dec, [facility] [place] [facility] [address] [id number] [place] [address]- 9463 Nov, [facility] [place] [facility] [address] [id number] [place] [address]- 2344 Nov, [facility] [place] [facility] [address] [id number] [place] [address]- 4407 Nov, [facility] [place] [facility] [address] [id number] [place] [address]- 4860 27 Oct, 2011 [facility] [place] [facility] [address] [id number] [place] [address] 8005 24 Oct, 2011 [facility] [place] [facility] [address] [id number] [place] [address]- 1436 21 Oct, 2011 [facility] [place] [facility] [address] [id number] [place] [address] 2546 10 Oct, 2011 [facility] [place] [facility] [address] [id number] [place] [address] 07 Oct, 2011 [facility] [place] [facility] [address] [id number] [place] [address]- 3759 04 Oct, 2011 [facility] [place] [facility] [address] [id number] [place] [address]- 1756 04 Oct, 2011 [facility] [place] [facility] [address] [id number] [place] [address]- 2627 29 Sep, 2011 [facility] [place] [facility] [address] [id number] [place] [address]- 1695 Sep, [facility] [place] [facility] [address] [id number] [place] [address]- 2806 Sep, [facility] [place] [facility] [address] [id number] [place] [address] 3129 Sep, [facility] [place] [facility] [address] [id number] [place] [address]- 3861 Sep, [facility] [place] [facility] [address] [id number] [place] [address]- 7957 30 Aug, 2011 [facility] [place] [facility] [address] [id number] [place] [address]- 9300 Aug, [facility] [place] [facility] [address] [id number] [place] [address]- 8733 17 Aug, 2011 [facility] [place] [facility] [address] [id number] [place] [address]- 1469 16 Aug, 2011 [facility] [place] [facility] [address] [id number] [place] [address]- 6766 13 Aug, 2011 [facility] [address] [id number] [place] [address]- 0809 Aug, [facility] [place] [facility] [address] [id number] [place] [address]- 0836 Aug, [facility] [address] [id number] [place] [address]- 0061 Jul, [facility] [place] [facility] [address] [id number] [place] [address] 3974 Jul, [facility] [address] [id number] [place] [address]- 1788 Jul, [facility] [address] [id number] [place] [address] 6493 Jul, [facility] [address] [id number] [place] [address]- 0589 Jul, [facility] [address] [id number] [place] [address]- 3530 Jul, [facility] [place] [facility] [address] [id number] [place] [address]- 5555 Jul, [facility] [address] [id number] [place] [address]- 9229 Jul, [facility] [place] [facility] [address] [id number] [place] [address]- 9634 Jul, [facility] [place] [facility] [address] [id number] [place] [address] 3201 June, [facility] [place] [facility] [address] [id number] [place] [address]- 4203 June, [facility] [place] [facility] [address] [id number] [place] [address]- 7501 June, [facility] [place] [facility] [address] [id number] [place] [address] 8842 June, [facility] [address] [id number] [place] [address]- 2573 June, [facility] [place] [facility] [address] [id number] [place] [address]- 9090 June, [facility] [place] [facility] [address] [id number] [place] [address]- 1739 June, [facility] [place] [facility] [address] [id number] [place] [address]- 5887 June, [facility] [address] [id number] [place] [address]- 5448 May, [facility] [place] [facility] [address] [id number] [place] [address]- 9578 May, [facility] [place] [facility] [address] [id number] [place] [address]- 1221 May, [facility] [place] [facility] [address] [id number] [place] [address]- 4955 May, [facility] [place] [facility] [address] [id number] [place] [address]- 0243 May, [facility] [place] [facility] [address] [id number] [place] [address]- 3052 16 May, 2011 [facility] [place] [facility] [address] [id number] [place] [address]- 0337 May, [facility] [place] [facility] [address] [id number], [place] [address]- [address]267 Apr, [facility] [place] [facility] [address] [id number] [place] [address]- 1446 Apr, [facility] [place] [facility] [address] [id number] [place] [address]- 8606 Apr, [facility] [place] [facility] [address] [id number] [place] [address]- 8610 Apr, [facility] [place] [facility] [address] [id number] [place] [address]- 2668 Apr, [facility] [address] [id number] [place] [address]- 4128 Apr, [facility] [address] [id number] [place] [address]- 1156 Apr, [facility] [address] [id number] [place] [address]- 3816 Mar, [facility] [address] [id number] [place] [address]- 7680 Mar, [facility] [address] [id number] [place] [address]- 4236 14 Mar, 2011 [facility] [address] [id number] [place] [address]- 1386 13 Mar, 2011 [facility] [address] [id number] [place] [address]- 8691 Mar, [facility] [address] [id number] [place] [address]- 3542 Mar, [facility] [address] [id number] [place] [address]- 6712 Mar, [facility] [address] [id number] [place] [address]- 2414 Feb, [facility] [address] [id number] [place] [address] 2546 Feb, [facility] [address] [id number] [place] [address]- 8559 Feb, [facility] [place] [facility] [address] [id number] [place] [address]- 0807 Feb, [facility] [place] [facility] [address] [id number] [place] [address]- 2180 Feb, [facility] [place] [facility] [address] [id number] [place] [address]- 5903 Feb, [facility] [place] [facility] [address] [id number] [place] [address]- 6845 Feb, [facility] [address] [id number] [place] [address]- 2540 Feb, [facility] [address] [id number] [place] [address]- 3909 Feb, [facility] [address] [id number] [place] [address]- 9349 Feb, [facility] [address] [id number] [place] [address]- 4409 Jan, [facility] [address] [id number] [place] [address]- 8336 Jan, [facility] [address] [id number] [place] [address]- 4077 Jan, [facility] [address] [id number] [place] [address]- 2214 Jan, [facility] [address] [id number] [place] [address]- 7606 Jan, [facility] [address] [id number] [place] [address]- 6388 Jan, [facility] [address] [id number] [place] [address]- 2424 Jan, [facility] [place] [facility] [address] [id number] [place] [address]- 8266 Jan, [facility] [place] [facility] [address] [id number] [place] [address]- 0763 Jan, [facility] [place] [facility] [address] [id number] [place] [address] Jan, [facility] [place] [facility] [address] [id number] [place] [address]- 4970 Jan, [facility] [place] [facility] [address] [id number], [place] [address]- 2158 17 Dec, 2010 [facility] [place] [facility] [address] [id number] [place] [address]- 0553 17 Dec, 2010 [facility] [place] [facility] [address] [id number] [place] [address]- 7154 17 Dec, 2010 [facility] [place] [facility] [address] [id number] [place] [address]- 7994 16 Dec, 2010 [facility] [place] [facility] [address] [id number] [place] [address]- 3984 14 Dec, 2010 [facility] [place] [facility] [address] [id number] [place] [address]- 6868 09 Dec, 2010 [facility] [place] [facility] [address] [id number] [place] [address]- 7501 08 Dec, 2010 [facility] [place] [facility] [address] [id number] [place] [address]- 6732 Dec, [facility] [place] [facility] [address] [id number] [place] [address]- 3558 Dec, [facility] [place] [facility] [address] [id number] [place] [address]- 7235 Nov, [facility] [place] [facility] [address] [id number] [place] [address]- 6957 Nov, [facility] [place] [facility] [address] [id number], [place] [address]- 6201 Nov, [facility] [place] [facility] [address] [id number], [place] [address]- 5407 24 Nov, 2010 [facility] [place] [facility] [address] [id number] [place] [address]- 2681 24 Nov, 2010 [facility] [place] [facility] [address] [id number] [place] [address]- 7816 13 Nov, 2010 [facility] [place] [facility] [address] [id number] [place] [address]- 3631 Aug, [facility] [place] [facility] [id number], [place] [address]- 4224 [address], [address] [facility] [id number], [place] [address]- [address] Jan, [facility] [id number] [address] Jan, [facility] [id number] [address] 1460 Jan, [facility] [id number] [address] 244[address] Jan, [facility] [id number] [address]858 Jan, [facility] [id number] [address] Dec, [facility] [id number] [address]279 Dec, [facility] [id number] [address]896 Dec, [facility] [id number] [address] Dec, [facility] [id number] [address] Nov, [facility] [id number], [place] [address] Nov, [facility] [address] [id number], [place] [address] 8431 Nov, IMMUNIZATIONS No Known Immunizations SOCIAL HISTORY Never Assessed REASON FOR VISIT FibroSure result PLAN OF CARE VITAL SIGNS MEDICATIONS Unknown [...]
--- OUTSIDE RECORDS SUMMARY | 2018-01-13 21:28 | XMS REPORT ---
Author Author WYATT SOTO [facility] eClinical[employer] Address Unknown Phone Unavailable Care Team Providers Care Swim Instructor Name Role Phone WYATT SOTO CP [...] F41.9 Active Problem Fibromyalgia M79.7 Active Medications No Known Medications Results No Known Results Summary Purpose eClinicalWorks Submission
--- OUTSIDE RECORDS SUMMARY | 2018-01-13 21:28 | XMS REPORT ---
Author Author WYATT SOTO [facility] e[employer] Address Unknown Phone Unavailable Care Team Providers Care Liner Machine Operator Helper Name Role Phone WYATT SOTO CP Unavailable [...]
--- OUTSIDE RECORDS SUMMARY | 2018-01-13 21:28 | XMS REPORT ---
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 53213042 Problem Unspecified episodic mood disorder F39 Active 35331229 Problem 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, 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 962708691 Problem Other chronic pain G89.29 Active 99126446 Problem Left hip pain M25.552 Active 32950541 Problem Anxiety F41.9 Active 09553931 Problem Chronic hepatitis C without hepatic coma B18.2 Active 673130424 Problem Left knee pain M25.562 Active 94902381 ALLERGIES Unknown Allergies SOCIAL HISTORY No smoking Hx information available PLAN OF CARE Activity Details Follow Up 2 Weeks Reason:Depression, anxiety VITAL SIGNS MEDICATIONS Unknown Medications RESULTS No Results PROCEDURES Procedure Date Ordered Related Diagnosis Body Site Psychotherapy, patient &/family, 45 minutes, established patient Apr 03, 2015 IMMUNIZATIONS No Known Immunizations
--- OUTSIDE RECORDS SUMMARY | 2018-01-13 21:28 | XMS REPORT ---
Author Author WYATT SOTO [facility] eClinicalWorks Address Unknown Phone Unavailable Care Team Providers Care Laborer/Grade Check Name Role Phone WYATT SOTO CP Unavailable [...] or phalanges of hand 816.00 Active Medications Medication Code System Code Instructions Start Date End Date Status Dosage Sumatriptan Succinate [facility] [id number] 100 MG Orally Once a day 1 tablet as needed one time Results No Known Results Summary Purpose eClinicalWorks Submission
--- OUTSIDE RECORDS SUMMARY | 2018-01-13 21:28 | XMS REPORT ---
Author Author WYATT SOTO [facility] eClinicalWorks Address Unknown Phone Unavailable Care Team Providers Care Rivet Flunky Name Role Phone WYATT SOTO CP Unavailable [...] Instructions Start Date End Date Status Dosage Flexeril NDC 0 10 mg 3 times a day Mar 22, 2014 take 1 tablet Results No Known Results Summary Purpose eClinicalWorks Submission
--- OUTSIDE RECORDS SUMMARY | 2018-01-13 21:29 | XMS REPORT ---
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 Active 35388267 Problem Unspecified episodic mood disorder F39 Active 64973850 Problem Hypertension I10 Active 45719235 Problem Venous insufficiency (chronic) (peripheral) I87.2 Active 995842126 Problem Gastroesophageal reflux disease, esophagitis presence not specified K21.9 Active 756721403 Problem Other chronic pain G89.29 Active 57782303 Problem Chronic hepatitis C without hepatic coma B18.2 Active 345146294 Problem Other psychoactive substance dependence, uncomplicated F19.20 Active 7938945 Problem 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 [id number] [address] June, [facility] [id number] [place] [address] 08928- 5692 June, Unspecified episodic mood disorder F39 [facility] [address] [address] May, Unspecified episodic mood disorder F39 [facility] [id number] [address] May, [facility] [id number] [place] [address] 36758- 0732 May, Arthritis M19.90 [facility] [id number] [place] [address] 49355 -3902 May, Dysuria R30.0 ; Abscess L02.91 and Acute cystitis without hematuria N30.00 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 [id number] [place] [address] 09955- 5912 May, 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 [id number] [place] [address] 62457- 2508 Apr, [facility] [id number] [place] [address] 93802 -3052 Apr, Neck pain M54.2 ; Left hip pain M25.552 and Fall, initial encounter W19.XXXA 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 [address] [address] Apr, [facility] [id number] [place] [address] 71217- 3764 Apr, Arthritis M19.90 and Unspecified episodic mood disorder F39 [facility] [id number] [place] [address] 39255- 4517 Apr, Unspecified episodic mood disorder F39 [facility] [id number] [place] [address] 33780- 9752 Apr, [facility] [id number] [place] [address] 90775- 4507 Apr, 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 [id number] [place] [address] 42516- 6286 Mar, Unspecified episodic mood disorder F39 [facility] [id number] [place] [address] 16720- 6769 Mar, Gastroesophageal reflux disease, esophagitis presence not specified K21.9 [facility] [id number] [place] [address] 02094- 4881 Mar, Arthritis M19.90 and Unspecified episodic mood disorder F39 [facility] [id number] [place] [address] 88172- 7225 Feb, [facility] [id number] [place] [address] 34592- 1691 Feb, [facility] [id number] [place] [address] 21531- 6634 Feb, [facility] [id number] [place] [address] 47929- 6131 Feb, Arthritis M19.90 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 ; Unspecified episodic mood disorder F39 and Left hip pain M25.552 [facility] [id number] [place] [address] 30797- 9279 Feb, [facility] [id number] [place] [address] 89732- 6528 Feb, [facility] [id number] [place] [address] 27854- 9055 Jan, Arthritis M19.90 [facility] [id number] [place] [address] 63991- 0432 Jan, Left hip pain M25.552 and Non-pressure chronic ulcer of right calf, 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 [facility] [id number] [place] [address] 21714- 7969 Jan, Chronic hepatitis C without hepatic coma B18.2 [facility] [id number] [place] [address] 86863- 5945 Jan, Encounter for immunization Z23 ; Venous insufficiency ( chronic) (peripheral) I87.2 ; Non-pressure chronic ulcer of unspecified calf limited to breakdown of skin L97.201 and Gastroesophageal reflux disease, esophagitis presence not specified K21.9 [facility] [id number] [place] [address] 07124- 5079 Jan, [facility] [id number] [place] [address] 31259- 9290 Jan, Chronic hepatitis C without hepatic coma B18.2 and Encounter for immunization Z23 [facility] [id number] [place] [address] 82498- 7265 Jan, Arthritis M19.90 [facility] [id number] [place] [address] 99131- 0838 Jan, [facility] [id number] [place] [address] 23666- 9222 Dec, [facility] [id number] [place] [address] 23956- 6605 Dec, Unspecified episodic mood disorder F39 [facility] [id number] [place] [address] 68951- 7561 Dec, Arthritis M19.90 [facility] [id number] [place] [address] 24704- 9699 Dec, Arthritis M19.90 [facility] [id number] [place] [address] 80318- 7814 Nov, [facility] [id number] [place] [address] 95541- 3462 Nov, 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 [id number] [place] [address] 41952- 0801 Nov, Arthritis M19.[address] [facility] [id number] [place] [address] 41085 -7140 Oct, Partial thickness burn of abdomen, initial encounter T21.22XA [facility] [id number] [place] [address] 35806- 8641 Oct, [facility] [id number] [place] [address] 63589- 8656 Sep, Arthritis M19.90 [facility] [id number] [place] [address] 50695- 2941 Sep, [facility] [address] [address] 50[address] Sep, [facility] [id number] [place] [address] 72874- 0410 Sep, Unspecified episodic mood disorder F39 ; Chronic hepatitis C without hepatic coma B18.2 and Left hip pain M25.552 [facility] [id number] [place] [address] 12534- 6717 Sep, Arthritis M19.90 and Left hip pain M25.552 [facility] [id number] [place] [address] 17060- 0050 Aug, [facility] [id number] [place] [address] 33299- 8024 Aug, [facility] [id number] [place] [address] 44036- 7189 Aug, Chronic hepatitis C without hepatic coma B18.2 [facility] [address] [address]- 8857 Aug, [facility] [id number] [place] [address] 91869- 5742 Aug, Chronic hepatitis C without hepatic coma B18.2 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 [id number] [address]- 7785 Aug, [facility] [id number] [place] [address] 76616- 0457 Aug, Chronic hepatitis C without hepatic coma B18.[address] [facility] [address] [address]- 3370 Jul, [facility] [id number] [place] [address] 90761- 3563 June, [facility] [id number] [place] [address] 61337- 0287 Apr, Fibromyalgia M79.7 ; Left hip pain M25.552 and Decubitus ulcer of sacral region, stage [address] [facility] [id number] [place] [address] 33024- 7065 Apr, [facility] [address] 90053- 5659 Apr, [facility] [id number] [place] [address] 31579- 5814 Feb, 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 [id number] [place] [address] 33137- 4078 Dec, [facility] [id number] [place] [address] 69392- 8502 Nov, [facility] [id number] [place] [address] 88409- 4272 Nov, [facility] [id number] [place] [address] 71684- 1465 10 Nov, 2015 Other disorder of impulse control F63.[address] [facility] [id number] [place] [address] 83666- 4264 21 Oct, 2015 [facility] [id number] [place] [address] 87833 -0514 14 Oct, 2015 Open wound of left thigh, initial encounter S71.102A [facility] [id number] [place] [address] 81325- 9479 12 Oct, 2015 [facility] [id number] [place] [address] 42318- 5645 Sep, Unspecified episodic mood disorder F39 ; Other disorder of impulse control 312.39 ; Combined drug dependence excluding opioids, with abuse F19.[address] 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 [id number] [place] [address] 31155- 1227 Sep, Other chronic pain G89.29 [facility] [id number] [place] [address] 57194- 5671 Sep, [facility] [id number] [place] [address] 90833- 5386 Sep, [facility] [id number] [place] [address] 64890- 0794 Aug, [facility] [id number] [place] [address] 47554- 0170 Aug, [facility] [id number] [place] [address] 36748- 0670 Aug, [facility] [id number] [place] [address] 06728- 6144 Jul, [facility] [id number] [place] [address] 82792- 8252 Jul, [facility] [id number] [place] [address] 90263- 8395 Jul, [facility] [id number] [place] [address] 13150- 3160 Jul, Arthritis M19.90 ; Chronic hepatitis C without hepatic coma B18.2 and Left hip pain M25.552 [facility] [id number] [place] [address] 09395- 1782 Jul, Left knee pain M25.562 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 [address] [address]- 8505 Jul, Left knee pain M25.562 [facility] [id number] [place] [address] 969385- 7725 08 Jul, 2015 Left knee pain M25.562 and Left hip pain M25.552 [facility] [id number] [place] [address] 04765- 2800 Jul, [facility] [id number] [place] [address] 02883- 0791 June, [facility] [id number] [place] [address] 50315- 0073 June, Combinations of drug dependence excluding opioid type drug, unspecified abuse 304.80 ; Other disorder of impulse control 312.39 ; Unspecified episodic mood disorder F39 [address] [facility] [id number] [place] [address] 82201- 8256 June, Other fatigue R53.83 ; Headache R51 and Left knee pain M25.562 [facility] [id number] [place] [address] 84300- 9060 June, Unspecified episodic mood disorder F39 ; Combinations of drug dependence excluding opioid type drug, unspecified abuse 304.80 ; Other disorder of impulse control 312.[address] [facility] [id number] [place] [address] 17093- 7188 June, Anxiety F41.9 [facility] [id number] [place] [address] 45290- 2917 June, Pain in left knee M25.562 [facility] [address] [address]- 1730 June, Anxiety F41.9 and Combinations of drug dependence excluding opioid type drug, unspecified abuse 304.80 [facility] [id number] [place] [address] 14529- 8208 June, Unspecified episodic mood disorder 296.90 ; Combinations of drug dependence excluding opioid type drug, unspecified abuse 304.80 and Other disorder of impulse control 312.39 [facility] [id number] [place] [address] 45176- 4893 June, Anxiety F41.9 and Unspecified episodic mood disorder 296.90 [facility] [id number] [place] [address] 63366- 0917 May, Arthritis M19.90 [facility] [id number] [place] [address] 82626- 2033 May, Arthritis M19.90 [facility] [id number] [place] [address] 05169- 3515 May, Anxiety F41.9 ; Combinations of drug dependence excluding opioid type drug, unspecified abuse 304.80 and Other disorder of impulse control 312.39 [facility] [id number] [place] [address] 53287- 5602 May, Left knee pain M25.562 [facility] [id number] [place] [address] 66236- 7369 May, Arthritis M19.90 [facility] [id number] [place] [address] 81556- 1887 May, [facility] [id number] [place] [address] 42546- 9852 May, Anxiety F41.9 ; Unspecified episodic mood disorder 296.90 ; Combinations of drug dependence excluding opioid type drug, unspecified abuse 304.80 and Other disorder of impulse control 312.39 [facility] [id number] [place] [address] 35870- 2284 May, Left knee pain M25.562 [id number] [place] [address] 28403- 6349 May, Left knee pain M25.562 ; Combinations of drug dependence excluding opioid type drug, unspecified abuse 304.80 ; Other disorder of impulse control 312.39 ; Fibromyalgia M79.7 ; Hypertension I10 ; Unspecified episodic mood disorder 296.90 and Left hip pain M25.552 [facility] [id number] [place] [address] 67184- 2397 May, Unspecified episodic mood disorder 296.90 ; Other disorder of impulse control 312.39 ; Combinations of drug dependence excluding opioid type drug, unspecified abuse 304.80 and Anxiety F41.9 [id number] [place] [address] 23932- 0540 May, Left knee pain M25.562 ; Combinations of drug dependence excluding opioid type drug, unspecified abuse 304.80 ; Other disorder of impulse control 312.39 ; Fibromyalgia M79.7 ; Hypertension I10 ; Unspecified episodic mood disorder 296.90 and Left hip pain M25.552 [facility] [id number] [place] [address] 84143- 6612 May, Anxiety F41.9 ; Unspecified episodic mood disorder 296.90 ; Other disorder of impulse control 312.39 and Combinations of drug dependence excluding opioid type drug, unspecified abuse 304.80 [id number] [place] [address] 01337- 1911 Apr, 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 and 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, implants and grafts, initial encounter T84.82XA [address] 63015- 0600 Apr, Anxiety F41.9 ; Unspecified episodic mood disorder 296.90 ; Combinations of drug dependence excluding opioid type drug, unspecified abuse 304.80 and Other disorder of impulse control 312.[address] 18362- 7481 Apr, Arthritis M19.90 [facility] [address] [address]- 5426 Apr, Anxiety F41.9 ; Unspecified episodic mood disorder 296.90 ; Combinations of drug dependence excluding opioid type drug, unspecified abuse 304.80 and Other disorder of impulse control 312.39 [facility] [id number] [place] [address] 56756- 7249 17 Apr, [address] [facility] [id number] [place] [address] 70881- 5143 Apr, [facility] [id number] [place] [address] 90109- 4951 15 Apr, 2015 [facility] [id number] [place] [address] 73901- 0785 Apr, Unspecified episodic mood disorder 296.90 ; Combinations of drug dependence excluding opioid type drug, unspecified abuse 304.80 ; Other disorder of impulse control 312.39 and Anxiety F41.9 [facility] [address] [address] -5301 Apr, Left knee pain M25.562 [facility] [address] [address]- 3700 Apr, [facility] [id number] [place] [address] 04655- 2394 Mar, Unspecified episodic mood disorder 296.90 ; Anxiety F41.9 ; Other disorder of impulse control 312.39 and Combinations of drug dependence excluding opioid type drug, unspecified abuse 304.80 [facility] [id number] [place] [address] 58433- 8049 Mar, Hyperpigmentation L81.9 [facility] [address] [address]- 5153 Mar, Arthritis M19.[address] 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 ; Other disorder of impulse control F63.89 and Anxiety F41.9 [facility] [facility] [id number] [place] [address] 21019- 1592 12 Mar, 2015 Well woman exam Z01.419 ; Other fatigue R53.83 ; Hot flashes N95.1 ; Depression, unspecified depression type F32.9 and Body mass index (BMI) of 23.0-23.9 in adult Z68.23 [facility] [address] 04796- 3422 11 Mar, 2015 Unspecified episodic mood disorder 296.90 ; Other disorder of impulse control 312.39 and Anxiety F41.9 [facility] [id number] [place] [address] 90209- 7928 11 Mar, 2015 Well woman exam Z01.419 [...] of breast Z12.39 and Limited mobility Z74.09 [facility] [id number] [place] [address] 51796- 5665 10 Mar, 2015 [facility] [id number] [place] [address] 26430- 8153 10 Mar, 2015 [facility] [id number] [place] [address] 13391- 8554 08 Mar, 2015 [facility] [id number] [place] [address] 42786- 3039 Mar, Other specified complication of internal orthopedic prosthetic devices, implants and grafts, initial encounter T84.89XA ; Fibromyalgia M79.7 ; Hypertension I10 ; Anemia D64.9 ; Insomnia G47.00 ; Anxiety F41.9 ; Arthritis M19.90 and Migraine G43.909 [facility] [address] 75294- 3984 Mar, [facility] [address] 01765- 5836 Feb, [facility] [address] 04715- 1891 Feb, Arthritis M19.90 and Anxiety F41.9 [facility] [facility] [address] 19043- 7014 Feb, [facility] [address] 74898- 7197 Feb, [facility] [address] 30280- 8176 Feb, [facility] [address] 72092- 5864 Feb, [facility] [id number] [place] [address] 01970- 5963 Feb, Anxiety F41.9 [facility] [id number] [place] [address]- [address] Feb, [place] [address] [address] Feb, [place] [address] [address] Feb, 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 and Fibromyalgia M79.7 [place] [address] [address] Feb, [facility] [id number] [address] Jan, [facility] [address] [facility] [id number] [address] [address] Jan, [facility] [id number] [address] Jan, [facility] [address] [place] [id number] [place] [address] [id number]- 68[address] Jan, [facility] [id number] [address] Jan, [facility] [id number] [place] [address]- [address] Jan, [facility] [id number] [place] [address]- 65[address] Jan, [facility] [id number] [address] Jan, [facility] [id number] [place] [address]- [address]29 Dec, [facility] [id number] [address] Dec, Left knee pain M25.562 [facility] [id number] [address] Dec, Left knee pain M25.562 [facility] [id number] [address] 16 Dec, 2014 Fibromyalgia M79.7 ; Hypertension I10 and Arthritis M19.[address] [facility] [facility] [id number] [address] Dec, [facility] [id number] [address] Dec, [facility] [id number] [address] Dec, [facility] [address] [facility] [id number] [place] [address] Dec, [facility] [place] [facility] [address] [facility] [id number] [address] Nov, [facility] [address] [facility] [id number] [place] [address]- 5734 Nov, [facility] [place] [facility] [address] [facility] [id number] [place] [address]- 15[address] Nov, [facility] [address] [facility] [id number] [place] [address]- 2661 Nov, Hypertension I10 [facility] [address] [facility] [id number] [address] 23 Oct, 2014 [facility] [place] [facility] [id number] [place] [address]- 1514 17 Oct, 2014 [facility] [address] [facility] [id number] [place] [address] Oct, [facility] [id number] [address]60 Oct, [facility] [address] [id number] [address] [address] Oct, [facility] [place] [facility] [id number] [address] [address] Sep, [facility] [place] [facility] [address] [facility] [id number] [place] [address] 2668 Sep, [facility] [place] [facility] [address] [id number] [address] Sep, Hip pain associated with recalled total hip arthroplasty hardware 996.77 [facility] [place] [facility] [address] [facility] [id number] [place] [address] Sep, [facility] [place] [facility] [id number] [place] [address] 2546 Sep, [facility] [place] [facility] [address] [id number] [place] [address]- 4444 Sep, [facility] [place] [facility] [address] [id number] [place] [address]- 7452 Aug, [facility] [place] [facility] [address] [id number] [place] [address]- 9466 Jul, [facility] [place] [facility] [address] [id number] [place] [address]- 9302 June, [facility] [place] [facility] [address] [id number] [place] [address]- 9039 June, [facility] [place] [facility] [address] [id number] [place] [address]- 7426 June, [facility] [place] [facility] [address] [id number] [place] [address]- 9693 June, [facility] [place] [facility] [address] [id number] [place] [address]- 4245 June, [facility] [place] [facility] [address] [id number] [place] [address]- 5555 June, [facility] [place] [facility] [address] [id number] [place] [address]- 7416 May, [facility] [place] [facility] [address] [id number] [place] [address]- 8796 May, [facility] [place] [facility] [address] [id number] [place] [address]- 1436 May, [facility] [place] [facility] [address] [id number] [place] [address]- 3660 Apr, [facility] [place] [facility] [address] [id number] [place] [address]- 8696 Apr, [facility] [place] [facility] [address] [id number] [place] [address]- 8891 Apr, [facility] [place] [facility] [address] [id number] [place] [address]- 6333 19 Apr, 2014 [facility] [place] [facility] [address] [id number] [place] [address]- 1266 13 Apr, 2014 [facility] [place] [facility] [address] [id number] [place] [address]- 1056 13 Apr, 2014 [facility] [place] [facility] [address] [id number] [place] [address]- 5033 12 Apr, 2014 [facility] [place] [facility] [address] [id number] [place] [address]- 5439 Apr, [facility] [place] [facility] [address] [id number] [place] [address]- 7972 Apr, [facility] [place] [facility] [address] [id number] [place] [address]- 1616 05 Apr, 2014 [facility] [place] [facility] [address] [id number] [place] [address]- 3090 05 Apr, 2014 [facility] [place] [facility] [address] [id number] [place] [address]- 1476 Mar, [facility] [place] [facility] [address] [id number] [place] [address]- 0005 Mar, [facility] [place] [facility] [address] [id number] [place] [address]- 6406 16 Mar, 2014 [facility] [place] [facility] [address] [id number] [place] [address]- 9891 16 Mar, 2014 [facility] [place] [facility] [address] [id number] [place] [address]- 1076 Mar, [facility] [place] [facility] [address] [id number] [place] [address]- 3475 10 Mar, 2014 [facility] [place] [facility] [address] [id number] [place] [address]- 9310 15 Feb, 2014 [facility] [place] [facility] [address] [id number] [place] [address]- 1611 Feb, [facility] [place] [facility] [address] [id number] [place] [address]- 5314 Feb, [facility] [place] [facility] [address] [id number] [place] [address]- 0759 Feb, [facility] [place] [facility] [address] [id number] [place] [address]- 0689 Jan, [facility] [place] [facility] [address] [id number] [place] [address]- 4344 Jan, [facility] [place] [facility] [address] [id number] [place] [address]- 9212 Jan, [facility] [place] [facility] [address] [id number] [place] [address]- 8341 Jan, [facility] [place] [facility] [address] [id number] [place] [address]- 9784 Dec, [facility] [place] [facility] [address] [id number] [place] [address]- 6139 Dec, [facility] [place] [facility] [address] [id number] [place] [address]- 4495 Dec, [facility] [place] [facility] [address] [id number] [place] [address]- 2847 Dec, [facility] [place] [facility] [address] [id number] [place] [address]- 3433 Dec, [facility] [place] [facility] [address] [id number] [place] [address]- 5956 Dec, [facility] [place] [facility] [address] [id number] [place] [address]- 1648 Dec, [facility] [place] [facility] [address] [id number] [place] [address]- 3644 Dec, [facility] [place] [facility] [address] [id number] [place] [address]- 7177 Dec, [facility] [place] [facility] [address] [id number] [place] [address]120 07 Dec, 2013 [facility] [place] [facility] [address] [id number] [place] [address]- 5169 07 Dec, 2013 [facility] [place] [facility] [address] [id number] [place] [address]- 5780 31 Nov, 2013 [facility] [place] [facility] [address] [id number] [place] [address]- 3338 28 Nov, 2013 [facility] [place] [facility] [address] [id number] [place] [address]- 1355 28 Nov, 2013 [facility] [place] [facility] [address] [id number] [place] [address]- 3719 17 Nov, 2013 [facility] [place] [facility] [address] [id number] [place] [address]- 6008 17 Nov, 2013 [facility] [place] [facility] [address] [id number] [place] [address]- 7992 15 Nov, 2013 [facility] [place] [facility] [address] [id number] [place] [address]- 1630 15 Nov, 2013 [facility] [place] [facility] [address] [id number] [place] [address]- 2516 15 Nov, 2013 [facility] [place] [facility] [address] [id number] [place] [address]- 2772 15 Nov, 2013 [facility] [place] [facility] [address] [id number] [place] [address]- 0666 14 Nov, 2013 [facility] [place] [facility] [address] [id number] [place] [address]- 1064 14 Nov, 2013 [facility] [place] [facility] [address] [id number] [place] [address]- 8846 14 Nov, 2013 [facility] [place] [facility] [address] [id number] [place] [address]- 0786 14 Nov, 2013 [facility] [place] [facility] [address] [id number] [place] [address]- 9277 13 Nov, 2013 [facility] [place] [facility] [address] [id number] [place] [address]- 1359 13 Nov, 2013 [facility] [place] [facility] [address] [id number] [place] [address]- 4638 Nov, [facility] [place] [facility] [address] [id number] [place] [address]- 3986 Nov, [facility] [place] [facility] [address] [id number] [place] [address]- 0095 Nov, [facility] [place] [facility] [address] [id number] [place] [address]- 8910 Nov, [facility] [place] [facility] [address] [id number] [place] [address]- 1668 Nov, [facility] [place] [facility] [address] [id number] [place] [address]- 4586 Nov, [facility] [place] [facility] [address] [id number] [place] [address]- 7439 30 Sep, 2013 [facility] [place] [facility] [address] [id number] [place] [address]- 3371 30 Sep, 2013 [facility] [place] [facility] [address] [id number] [place] [address]- 6446 26 Sep, 2013 [facility] [place] [facility] [address] [id number] [place] [address]- 8957 26 Sep, 2013 [facility] [place] [facility] [address] [id number] [place] [address]- 2548 22 Sep, 2013 [facility] [place] [facility] [address] [id number] [place] [address]- 2546 22 Sep, 2013 [facility] [place] [facility] [address] [id number] [place] [address]- 4354 18 Sep, 2013 [facility] [place] [facility] [address] [id number] [place] [address]- 2540 18 Oct, 2013 [facility] [place] [facility] [address] [id number] [place] [address]- 4739 18 Oct, 2013 [facility] [place] [facility] [address] [id number] [place] [address]- 0191 18 Oct, 2013 [facility] [place] [facility] [address] [id number] [place] [address]- 8647 Oct, [facility] [place] [facility] [address] [id number] [place] [address]- 9189 Oct, [facility] [place] [facility] [address] [id number] [place] [address] 2540 Oct, [facility] [place] [facility] [address] [id number] [place] [address]- 6415 Oct, [facility] [place] [facility] [address] [id number] [place] [address]- 0771 Sep, [facility] [place] [facility] [address] [id number] [place] [address]- 8099 Sep, [facility] [place] [facility] [address] [id number] [place] [address]- 3581 Sep, [facility] [place] [facility] [address] [id number] [place] [address]- 0056 Sep, [facility] [place] [facility] [address] [id number] [place] [address]- 7507 Sep, [facility] [place] [facility] [address] [id number] [place] [address]- 2543 Sep, [facility] [place] [facility] [address] [id number] [place] [address]- 0607 Sep, [facility] [place] [facility] [address] [id number] [place] [address]- 2943 Sep, [facility] [place] [facility] [address] [id number] [place] [address]- 9305 Sep, [facility] [place] [facility] [address] [id number] [place] [address]- 2413 Sep, [facility] [place] [facility] [address] [id number] [place] [address]- 7091 Sep, [facility] [place] [facility] [address] [id number] [place] [address]- 0468 Sep, [facility] [place] [facility] [address] [id number] [place] [address]- 1845 Sep, [facility] [place] [facility] [address] [id number] [place] [address]- 9969 Sep, [facility] [place] [facility] [address] [id number] [place] [address]- 3716 Sep, [facility] [place] [facility] [address] [id number] [place] [address]- 2167 Sep, [facility] [place] [facility] [address] [id number] [place] [address]- 9060 Sep, [facility] [place] [facility] [address] [id number] [place] [address]- 3331 Sep, [facility] [place] [facility] [address] [id number] [place] [address]- 8054 Aug, [facility] [place] [facility] [address] [id number] [place] [address]- 9078 Aug, [facility] [place] [facility] [address] [id number] [place] [address]- 1491 Aug, [facility] [place] [facility] [address] [id number] [place] [address]- 7170 Aug, [facility] [place] [facility] [address] [id number] [place] [address]- 8790 Aug, [facility] [place] [facility] [address] [id number] [place] [address]- 3545 Aug, [facility] [place] [facility] [address] [id number] [place] [address]- 1466 Jul, [facility] [place] [facility] [address] [id number] [place] [address]- 4048 Jul, [facility] [place] [facility] [address] [id number] [place] [address]- 2909 Jul, [facility] [place] [facility] [address] [id number] [place] [address]- 2557 Jul, [facility] [place] [facility] [address] [id number] [place] [address]- 7443 June, [facility] [place] [facility] [address] [id number] [place] [address]- 8708 June, [facility] [place] [facility] [address] [id number] [place] [address]- 6206 June, [facility] [place] [facility] [address] [id number] [place] [address]- 9937 June, [facility] [place] [facility] [address] [id number] [place] [address]- 5928 June, [facility] [place] [facility] [address] [id number] [place] [address]- 6191 June, [facility] [place] [facility] [address] [id number] [place] [address]- 7202 June, [facility] [place] [facility] [address] [id number] [place] [address]- 9871 May, [facility] [place] [facility] [address] [id number] [place] [address]- 1512 May, [facility] [place] [facility] [address] [id number] [place] [address]- 4596 May, [facility] [place] [facility] [address] [id number] [place] [address]- 9503 May, [facility] [place] [facility] [address] [id number] [place] [address]- 5563 May, [facility] [place] [facility] [address] [id number] [place] [address]- 4137 May, [facility] [place] [facility] [address] [id number] [place] [address]- 2102 31 Apr, 2013 [facility] [place] [facility] [address] [id number] [place] [address]- 0076 31 Apr, 2013 [facility] [place] [facility] [address] [id number] [place] [address]- 8946 28 Apr, 2013 [facility] [place] [facility] [address] [id number] [place] [address]- 5806 28 Apr, 2013 [facility] [place] [facility] [address] [id number] [place] [address]- 8997 14 Apr, 2013 [facility] [place] [facility] [address] [id number] [place] [address]- 2231 14 Apr, 2013 [facility] [place] [facility] [address] [id number] [place] [address]- 4387 Apr, [facility] [place] [facility] [address] [id number] [place] [address]- 3227 Apr, [facility] [place] [facility] [address] [id number] [place] [address]- 6602 10 Apr, 2013 [facility] [place] [facility] [address] [id number] [place] [address]- 6149 10 Apr, [address] [facility] [place] [facility] [address] [id number] [place] [address]- 8169 04 Apr, 2013 [facility] [place] [facility] [address] [id number] [place] [address]- 9327 04 Apr, 2013 [facility] [place] [facility] [address] [id number] [place] [address]- 7056 Apr, [facility] [place] [facility] [address] [id number] [place] [address]- 7125 Apr, [facility] [place] [facility] [address] [id number] [place] [address]- 6216 Mar, [facility] [place] [facility] [address] [id number] [place] [address]- 7730 Mar, [facility] [place] [facility] [address] [id number] [place] [address]- 6484 Mar, [facility] [place] [facility] [address] [id number] [place] [address]- 9833 Feb, [facility] [place] [facility] [address] [id number] [place] [address]- 7724 Feb, [facility] [place] [facility] [address] [id number] [place] [address]- 8364 Feb, [facility] [place] [facility] [address] [id number] [place] [address]- 4588 Feb, [facility] [place] [facility] [address] [id number] [place] [address]- 2971 Feb, [facility] [place] [facility] [address] [id number] [place] [address]- 5732 Feb, [facility] [place] [facility] [address] [id number] [place] [address]- 9544 Feb, [facility] [place] [facility] [address] [id number] [place] [address]- 7812 Feb, [facility] [place] [facility] [address] [id number] [place] [address]- 8861 Feb, [facility] [place] [facility] [address] [id number] [place] [address]- 9310 Feb, [facility] [place] [facility] [address] [id number] [place] [address]- 8212 Jan, [facility] [place] [facility] [address] [id number] [place] [address]- 6224 Jan, [facility] [place] [facility] [address] [id number] [place] [address]- 8069 Jan, [facility] [place] [facility] [address] [id number] [place] [address]- 7867 Jan, [facility] [place] [facility] [address] [id number] [place] [address]- 8409 24 Jan, 2013 [facility] [address] [id number] [place] [address]- 6252 24 Jan, 2013 [facility] [address] [id number] [place] 6526 Jan, [facility] [address] [id number] [place] [address]- 0156 23 Jan, 2012 [facility] [address] [id number] [place] [address]- 4116 19 Jan, 2013 [facility] [address] [id number] [place] [address]- 3252 19 Jan, 2013 [facility] [address] [id number] [place] [address]- 8242 17 Jan, 2013 [facility] [address] [id number] [place] 4437 17 Jan, 2013 [facility] [address] [id number] [place] [address]- 7719 16 Jan, 2013 [facility] [address] [id number] [place] [address]- 3756 11 Jan, 2013 [facility] [address] [facility] [id number] [place] [address]- 0304 11 Jan, 2013 [facility] [address] [id number] [place] [address]- 4386 09 Jan, 2013 [facility] [place] [facility] [address] [id number] [place] [address]- 0207 09 Jan, 2013 [facility] [place] [facility] [address] [id number] [place] [address]- 0059 05 Jan, 2013 [facility] [place] [facility] [address] [id number] [place] 6156 05 Jan, 2013 [facility] [address] [id number] [place] [address]- 2456 Jan, [facility] [place] [facility] [address] [id number] [place] [address]- 4947 Jan, [facility] [place] [facility] [address] [id number] [place] [address]- 9830 Dec, [facility] [place] [facility] [address] [id number] [place] [address] Dec, [facility] [place] [facility] [address] [id number] [place] [address] Dec, [facility] [place] [facility] [address] [id number] [place] [address] Dec, [facility] [place] [facility] [address] [id number] [place] [address] Dec, [facility] [place] [facility] [address] [id number] [place] [address] Dec, [facility] [place] [facility] [address] [id number] [place] [address] Dec, [facility] [place] [facility] [address] [id number] [place] [address] Dec, [facility] [place] [facility] [address] [id number] [place] [address] Dec, [facility] [place] [facility] [address] [id number] [place] [address] Dec, [facility] [place] [facility] [address] [id number] [place] [address] Nov, [facility] [place] [facility] [address] [id number] [place] [address] Nov, [facility] [place] [facility] [address] [id number] [place] [address] Nov, [facility] [place] [facility] [address] [id number] [place] [address] Nov, [facility] [place] [facility] [address] [id number] [place] [address] 39[address] Nov, [facility] [place] [facility] [address] [id number] [place] [address] Nov, [facility] [place] [facility] [address] [id number] [place] [address] Nov, [facility] [place] [facility] [address] [id number] [place] [address] Nov, [facility] [place] [facility] [address] [id number] [place] [address] 10 Nov, 2012 [facility] [place] [facility] [address] [id number] [place] [address] Nov, [facility] [place] [facility] [address] [id number] [place] [address] Oct, [facility] [place] [facility] [address] [id number] [place] [address] Oct, [facility] [place] [facility] [address] [id number] [place] [address] Oct, [facility] [place] [facility] [address] [id number] [place] [address] 267[address] Oct, [facility] [place] [facility] [address] [id number] [place] [address] Oct, [facility] [place] [facility] [address] [id number] [place] [address] 1767 Sep, [facility] [place] [facility] [address] [id number] [place] [address] 99[address] Sep, [facility] [place] [facility] [address] [id number] [place] [address] 18[address] Aug, [facility] [place] [facility] [address] [id number] [place] [address] Aug, [facility] [place] [facility] [address] [id number] [place] [address] Aug, [facility] [place] [facility] [address] [id number] [place] [address] Aug, [facility] [address] [id number] [place] [address] Aug, [facility] [address] [id number] [place] [address] Aug, [facility] [address] [id number] [place] [address] Aug, [facility] [address] [id number] [place] [address] Jul, [facility] [address] [id number] [place] [address] Jul, [facility] [address] [id number] [place] [address] June, [facility] [address] [id number] [place] [address] June, [facility] [address] [id number] [place] [address] June, [facility] [address] [id number] [place] [address] June, [facility] [address] [id number] [place] [address] June, [facility] [address] [id number] [place] [address] June, [facility] [address] [id number] [place] [address] June, [facility] [address] [id number] [place] [address] 5836 June, [facility] [address] [id number] [place] [address]46 June, [facility] [address] [id number] [place] [address] 75[address] June, [facility] [address] [id number] [place] [address] 78[address] June, [facility] [address] [id number] [place] [address] May, [facility] [address] [id number] [place] [address] May, [facility] [address] [id number] [place] [address] 8[address] May, [facility] [address] [id number] [place] [address] 67[address] May, [facility] [address] [id number] [place] [address] 59[address] Apr, [facility] [address] [id number] [place] [address]- 75[address] Apr, [facility] [address] [id number] [place] [address]287 Apr, [facility] [address] [id number] [place] [address]- 74[address] Mar, [facility] [address] [id number] [place] [address] 1766 Mar, [facility] [address] [id number] [place] [address] 95[address] Feb, [facility] [address] [id number] [place] [address] 3097 Feb, [facility] [place] [facility] [address] [id number] [place] [address] Feb, [facility] [place] [facility] [address] [id number] [place] [address] 8365 Feb, [facility] [place] [facility] [address] [id number] [place] [address] 9324 Feb, [facility] [place] [facility] [address] [id number] [place] [address] 14 Feb, 2012 [facility] [address] [id number] [place] [address] 08 Feb, 2012 [facility] [place] [facility] [address] [id number] [place] [address]- 7936 31 Jan, 2012 [facility] [place] [facility] [address] [id number] [place] [address]- 5546 31 Jan, 2012 [facility] [place] [facility] [address] [id number] [place] [address] 8367 28 Jan, 2012 [facility] [place] [facility] [address] [id number] [place] [address]- 78[address] Jan, [facility] [place] [facility] [address] [id number] [place] [address]- [address] 17 Jan, 2012 [facility] [address] [id number] [place] [address]- 9661 Jan, [facility] [place] [facility] [address] [id number] [place] [address]- 276[address] Jan, [facility] [place] [facility] [address] [address] [id number] [place] [address] Jan, [facility] [place] [facility] [address] [id number] [place] [address] Jan, [facility] [place] [facility] [address] [id number] [place] [address] Jan, [facility] [place] [facility] [address] [id number] [place] [address] Jan, [facility] [place] [facility] [address] [id number] [place] [address]268 Dec, [facility] [place] [facility] [address] [id number] [place] [address] 9036 Dec, [facility] [place] [facility] [address] [id number] [place] [address] 05 Dec, 2011 [facility] [place] [facility] [address] [id number] [place] [address] 1672 Dec, [facility] [place] [facility] [address] [id number] [place] [address] Nov, [facility] [place] [facility] [address] [id number] [place] [address] 9426 Nov, [facility] [place] [facility] [address] [id number] [place] [address] 4[address] Nov, [facility] [place] [facility] [address] [id number] [place] [address] 9[address] 27 Oct, 2011 [facility] [place] [facility] [address] [id number] [place] [address] 8288 24 Oct, 2011 [facility] [place] [facility] [address] [id number] [place] [address] 1585 21 Oct, 2011 [facility] [place] [facility] [address] [id number] [place] [address] 3995 10 Oct, 2011 [facility] [place] [facility] [address] [id number] [place] [address] 7307 07 Oct, 2011 [facility] [place] [facility] [address] [id number] [place] [address] 2996 04 Oct, 2011 [facility] [place] [facility] [address] [id number] [place] [address] 0616 04 Oct, 2011 [facility] [place] [facility] [address] [id number] [place] [address] 9183 29 Sep, 2011 [facility] [place] [facility] [address] [id number] [place] [address] Sep, [facility] [place] [facility] [address] [id number] [place] [address] 4[address] Sep, [facility] [place] [facility] [address] [id number] [place] [address] 4586 13 Sep, 2011 [facility] [place] [facility] [address] [id number] [place] [address] 1720 Sep, [facility] [place] [facility] [address] [id number] [place] [address] 30 Aug, 2011 [facility] [place] [facility] [address] [id number] [place] [address] 2956 Aug, [facility] [place] [facility] [address] [id number] [place] [address] 0936 Aug, [facility] [place] [facility] [address] [id number] [place] [address] 9198 16 Aug, 2011 [facility] [place] [facility] [address] [id number] [place] [address] 6650 Aug, [facility] [place] [facility] [address] [id number] [place] [address] 4177 Aug, [facility] [place] [facility] [address] [id number] [place] [address] 7[address] Aug, [facility] [place] [facility] [address] [id number] [place] [address] 5104 Jul, [facility] [place] [facility] [address] [id number] [place] [address] 7[address] Jul, [facility] [place] [facility] [address] [id number] [place] [address] 3543 Jul, [facility] [place] [facility] [address] [id number] [place] [address] 5899 Jul, [facility] [place] [facility] [address] [id number] [place] [address] 2734 Jul, [facility] [place] [facility] [address] [id number] [place] [address] 6968 Jul, [facility] [place] [facility] [address] [id number] [place] [address] 4246 07 Jul, 2011 [facility] [place] [facility] [address] [id number] [place] [address] 8779 06 Jul, 2011 [facility] [place] [facility] [address] [id number] [place] [address] 3067 Jul, [facility] [address] [id number] [place] [address] 3[address] June, [facility] [address] [id number] [place] [address] 74[address] June, [facility] [address] [id number] [place] [address] 2746 June, [facility] [address] [id number] [place] [address] 5[address] June, [facility] [address] [id number] [place] [address] 5564 June, [facility] [address] [id number] [place] [address] 5417 June, [facility] [address] [id number] [place] [address] 7694 June, [facility] [address] [id number] [place] [address] 2496 June, [facility] [address] [id number] [place] [address] 1070 May, [facility] [address] [id number] [place] [address] 3833 May, [facility] [address] [id number] [place] [address] 7358 May, [facility] [address] [id number] [place] [address] 7260 19 May, 2011 [facility] [address] [id number] [place] [address]- 5999 16 May, 2011 [facility] [address] [id number] [place] [address]- 8943 16 May, 2011 [facility] [address] [id number] [place] [address]- 1090 May, [facility] [address] [id number] [place] [address] Apr, [facility] [place] [facility] [address] [id number] [place] [address]- 4006 Apr, [facility] [place] [facility] [address] [id number] [place] [address] 7986 Apr, [facility] [place] [facility] [address] [id number] [place] [address] 2546 Apr, [facility] [place] [facility] [address] [id number] [place] [address]- 7016 Apr, [facility] [place] [facility] [address] [id number] [place] [address] 5466 Apr, [facility] [place] [facility] [address] [facility] [id number] [place] [address]- 4576 Apr, [facility] [place] [facility] [address] [id number] [place] [address]- 0669 Mar, [facility] [place] [facility] [address] [id number] [place] [address] 9672 Mar, [facility] [place] [facility] [address] [facility] [id number] [place] [address]- 6561 14 Mar, 2011 [facility] [place] [facility] [address] [id number] [place] [address]- 4216 Mar, [facility] [place] [facility] [address] [id number] [place] [address] 2546 Mar, [facility] [place] [facility] [address] [id number] [place] [address]- 5129 Mar, [facility] [place] [facility] [address] [id number] [place] [address]- 6806 Mar, [facility] [place] [facility] [address] [id number] [place] [address] 2546 Feb, [facility] [place] [facility] [address] [id number] [place] [address]- 9432 30 Feb, 2011 [facility] [address] [id number] [place] [address]- 4296 Feb, [facility] [address] [id number] [place] [address]- 9116 Feb, [facility] [address] [id number] [place] [address]- 2916 Feb, [facility] [address] [id number] [place] [address]- 6792 Feb, [facility] [address] [id number] [place] [address]- 3636 Feb, [facility] [address] [id number] [place] [address]- 4494 Feb, [facility] [address] [id number] [place] [address]- 2958 Feb, [facility] [address] [id number] [place] [address]- 6469 Feb, [facility] [address] [id number] [place] [address]- 0239 Jan, [facility] [address] [id number] [place] [address]- 7826 Jan, [facility] [address] [id number] [place] [address] 2546 Jan, [facility] [address] [id number] [place] [address]- 2549 Jan, [facility] [place] [facility] [address] [id number] [place] [address] 2546 Jan, [facility] [address] [id number] [place] [address]- 2540 Jan, [facility] [address] [id number] [place] [address]- 0048 15 Jan, 2011 [facility] [place] [facility] [address] [id number] [place] [address]- 6717 15 Jan, 2011 [facility] [place] [facility] [address] [id number] [place] [address]- 2611 Jan, [facility] [place] [facility] [address] [id number] [place] [address] Jan, [facility] [place] [facility] [address] [id number] [place] [address]- 7394 Jan, [facility] [place] [facility] [address] [id number] [place] [address]- 0910 Dec, [facility] [place] [facility] [address] [id number] [place] [address]- 5110 Dec, [facility] [place] [facility] [address] [id number] [place] [address]- 5333 Dec, [facility] [place] [facility] [address] [id number] [place] [address]- 9759 16 Dec, 2010 [facility] [place] [facility] [address] [id number] [place] [address]- 1283 Dec, [facility] [place] [facility] [address] [id number] [place] [address]- 1163 Dec, [facility] [place] [facility] [address] [id number] [place] [address]- 8049 Dec, [facility] [place] [facility] [address] [id number] [place] [address]- 8886 Dec, [facility] [place] [facility] [address] [id number] [place] [address]- 8427 Dec, [facility] [place] [facility] [address] [id number] [place] [address]- 6256 Nov, [facility] [place] [facility] [address] [id number] [place] [address]- 3132 Nov, [facility] [place] [facility] [address] [id number] [place] [address]- 4950 Nov, [facility] [place] [facility] [address] [id number] [place] [address]- 1526 Nov, [facility] [place] [facility] [address] [id number] [place] [address]- 6546 24 Nov, 2010 [facility] [place] [facility] [address] [id number] [place] [address]- 7646 13 Nov, 2010 [facility] [place] [facility] [address] [id number] [place] [address]- 3737 Aug, [facility] [place] [facility] [address] [id number] [place] [address]- 1920 14 Feb, 2010 [facility] [place] [facility] [address] [id number] [place] [address]- 4002 14 Jan, 2010 [facility] [place] [facility] [address] [id number] [place] [address]- 5219 Jan, [facility] [place] [facility] [address] [id number] [place] [address]- 9724 Jan, [facility] [place] [facility] [address] [id number] [place] [address]- 7417 Jan, [facility] [place] [facility] [address] [id number] [place] [address]- 0149 Jan, [facility] [place] [facility] [address] [id number] [place] [address]- 6894 Dec, [facility] [place] [facility] [address] [id number] [place] [address]- 0114 Dec, [facility] [place] [facility] [address] [id number] [place] [address]- 4616 Dec, [facility] [place] [facility] [address] [id number] [place] [address]- 2536 Dec, [facility] [place] [facility] [address] [id number] [place] [address]- 5545 Nov, [facility] [place] [facility] [address] [facility] [id number] [place] [address]127 Nov, [facility] [address] [facility] [id number] [place] [address]- 6769 Nov, IMMUNIZATIONS No Known Immunizations SOCIAL HISTORY [...]
--- OUTSIDE RECORDS SUMMARY | 2018-01-13 21:29 | XMS REPORT ---
Author Author WYATT SOTO [facility] eClinicalWorks Address Unknown Phone Unavailable Care Team Providers Care Plaster Machine Tender Name Role Phone WYATT SOTO CP Unavailable [...] Instructions Start Date End Date Status Dosage Lyrica [facility] [address]-87 100 MG Orally Three times a day 1 capsule Results No Known Results Summary Purpose eClinicalWorks Submission
--- OUTSIDE RECORDS SUMMARY | 2018-01-13 21:29 | XMS REPORT ---
Author Author WYATT SOTO [facility] eClinicalWorks Address Unknown Phone Unavailable Care Team Providers Care Steel Pan Form Placing Supervisor Name Role Phone WYATT SOTO CP Unavailable [...]
--- OUTSIDE RECORDS SUMMARY | 2018-01-13 21:30 | XMS REPORT ---
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
--- OUTSIDE RECORDS SUMMARY | 2018-01-13 21:30 | XMS REPORT ---
Author Author WYATT SOTO [facility] eClinicalWorks Address Unknown Phone Unavailable Care Team Providers Care Executive Compensation Analyst Name Role Phone WYATT SOTO CP Unavailable Allergies No Known Allergies Problems Problem Type Condition Code Onset Dates Condition Status Assessment Arthritis M19.90 Active Problem Combinations of drug dependence excluding opioid type drug, 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 Problem 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 Problem Left hip pain M25.552 Active Problem Anxiety F41.9 Active Problem Left knee pain M25.562 Active Problem Hypertension I10 Active Problem Unspecified episodic mood disorder 296.90 Active Problem Fibromyalgia M79.7 Active Problem Arthritis M19.90 Active Medications Medication Code System Code Instructions Start Date End Date Status Dosage Oxycodone HCl [facility] [address]-32 10 mg Orally, 3 times a day Feb 14, 2015 1 capsule as needed Results No Known Results Summary Purpose eClinicalWorks Submission
--- OUTSIDE RECORDS SUMMARY | 2018-01-13 21:30 | XMS REPORT ---
Author Author WYATT SOTO [facility] eClinicalWorks Address Unknown Phone Unavailable Care Team Providers Care Licensed Pesticide Applicator Name Role Phone WYATT SOTO CP Unavailable [...] Date End Date Status Dosage Oxycodone HCl [facility] 76599539239 10 MG TAKE ONE TABLET BY MOUTH THREE TIMES DAILY NEEDED Results No Known Results Summary Purpose eClinicalWorks Submission
--- OUTSIDE RECORDS SUMMARY | 2018-01-13 21:30 | XMS REPORT ---
Author WYATT [facility] eClinicalWorks Address Unknown Phone Unavailable Care Team Providers Care Trailhead Maintenance Worker Name Role Phone WYATT SOTO Unavailable Allergies, Adverse Reactions, Alerts Substance Reaction Event Type Propranolol HCl chest pain, headache Drug Allergy Bactrim unknown Drug Allergy Penicillins unknown Non Drug Allergy Problems Problem Type Condition Code Onset Dates Condition Status Assessment Arthritis M19.90 Active Assessment Anxiety F41.9 Active Problem Fibromyalgia M79.7 Active Problem Arthritis M19.90 Active Problem Anxiety F41.9 Active Problem Combinations of drug dependence excluding opioid type drug, 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 Problem 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 Problem Hypertension I10 Active Problem Unspecified episodic mood disorder 296.90 Active Medications Medication Code System Code Instructions Start Date End Date Status Dosage Gabapentin [facility] [address]-95 300 MG Orally Three times a day Sep 12, 2014 1 capsule Duragesic-50 [facility] [address]-81 50 MCG/HR Transdermal Mar 06, 2015 apply 1 patch to skin every 72 hours Klonopin [facility] [address]-53 1 MG Orally Twice a day 1 tablet Flexeril NDC 0 10 mg 3 times a day Mar 22, 2014 take 1 tablet Clonidine HCl [facility] [address]-55 0.1 MG Orally twice a day Jan 16, 2015 1 tablet Ativan [facility] [address]-76 1 MG Orally, [facility] 2 times a day Feb 02, 2015 1 tablet Furosemide [facility] 24312627880 20 MG TAKE ONE TABLET BY MOUTH DAILY NEEDED Sumatriptan Succinate [facility] 72327402165 100 MG Orally Once a day 1 tablet as needed one time Fluoxetine HCl [facility] [address]-27 40 MG Orally Once a day Nov 28, 2014 2 capsule in the morning Oxycodone HCl [facility] [address]-38 10 MG Orally, [facility] every 4 hrs Feb 14, 2015 1 capsule as needed Lyrica [facility] [address]-52 100 MG Orally Three times a day 1 capsule Amlodipine Besylate [facility] 64818564355 5 MG TAKE ONE TABLET BY MOUTH DAILY Procedures Procedure Coding System Code Date Office Visit, Est Pt., Level 3 CPT-4 06530 Mar 06, 2015 Vital Signs Date/Time: Mar 06, 2015 Temperature 98.2 F Weight 157.9 lbs Height 68 in Pain Scale 8 1-10 Blood Pressure Diastolic 84 mmHg Blood Pressure Systolic 118 mmHg Cardiac Monitoring Heart Rate 96 bpm BMI 24.01 Index Results No Known Results Summary Purpose eClinicalWorks Submission
--- OUTSIDE RECORDS SUMMARY | 2018-01-13 21:31 | XMS REPORT ---
Author Author ARJUN RIDLEY [facility] eClinicalWorks Address Unknown Phone Unavailable Care Team Providers Care Door Clamper Name Role Phone ARJUN RIDLEY CP Unavailable Allergies No Known Allergies Problems Problem Type Condition Code Onset Dates Condition Status Assessment Anxiety F41.9 Active Problem Combinations of drug dependence excluding opioid type drug, 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 Problem 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 Problem Left hip pain M25.552 Active Problem Anxiety F41.9 Active Problem Left knee pain M25.562 Active Problem Hypertension I10 Active Problem Unspecified episodic mood disorder 296.90 Active Problem Fibromyalgia M79.7 Active Problem Arthritis M19.90 Active Assessment 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 Assessment Combinations of drug dependence excluding opioid type drug, 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 Assessment Unspecified episodic mood disorder 296.90 Active Medications No Known Medications Procedures Procedure Coding System Code Date Psychotherapy, patient &/family, 30 minutes, established patient CPT-4 75092 May 22, 2015 Results No Known Results Summary Purpose eClinicalWorks Submission
--- OUTSIDE RECORDS SUMMARY | 2018-01-13 21:31 | XMS REPORT ---
Author Author JUAN CARLOS SHEFFIELD Organization [facility] Address [address] 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 Active 10832471 Problem Unspecified episodic mood disorder F39 Active 15281719 Problem Hypertension I10 Active 81460355 Problem Venous insufficiency (chronic) (peripheral) I87.2 Active 844280933 Problem Gastroesophageal reflux disease, esophagitis presence not specified K21.9 Active 032590557 Problem Other chronic pain G89.29 Active 22372897 Problem Chronic hepatitis C without hepatic coma B18.2 Active 975004147 Problem Other psychoactive substance dependence, uncomplicated F19.20 Active 2102700 Problem 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, 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 708680369 ALLERGIES Substance Reaction Event Type Date Status Propranolol HCl chest pain, headache Drug Allergy Jan, Active Bactrim unknown Drug Allergy Jan, Active Penicillins unknown Non Drug Allergy Jan, Active ENCOUNTERS Encounter Location Date Diagnosis [facility] [address] [facility] [id number] [address] Jul, [facility] [id number] [address] Jul, Unspecified episodic mood disorder F39 [facility] [address] [facility] [id number] [address] June, Gastroesophageal reflux disease, esophagitis presence not specified K21.9 [facility] [address] [address] June, [facility] [id number] [place] [address] 04679- 0314 June, [facility] [id number] [place] [address] 51168- 3524 June, Arthritis M19.90 [facility] [id number] [place] [address] 32896- 5548 June, [facility] [id number] [place] [address] 23363- 5873 June, [facility] [id number] [place] [address] 68706- 4383 June, Unspecified episodic mood disorder F39 [facility] [id number] [place] [address] 46880- 2430 May, Unspecified episodic mood disorder F39 [facility] [id number] [place] [address] 51371- 4083 May, [facility] [id number] [place] [address] 57091- 2092 May, Arthritis M19.90 [facility] [id number] [place] [address] 74950 -2117 May, Dysuria R30.0 ; Abscess L02.91 and Acute cystitis without hematuria N30.00 [facility] [id number] [place] [address] 30050- 0619 May, Other disorder of impulse control 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 ; Unspecified episodic mood disorder F39 ; Combined drug dependence excluding opioids, 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 ; Anxiety F41.9 and Other psychoactive substance dependence, uncomplicated F19.20 [facility] [id number] [place] [address] 04667- 3090 May, [facility] [id number] [place] [address] 38522- 8846 May, Other disorder of impulse control F63.89 ; Unspecified episodic mood disorder F39 ; Combined drug dependence excluding opioids, 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 ; Other psychoactive substance dependence, uncomplicated F19.20 and Anxiety F41.9 [facility] [id number] [place] [address] 16486- 4249 May, Other chronic pain G89.29 ; Left hip pain M25.552 ; Hypertension I10 ; 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, 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 and Unspecified episodic mood disorder F39 [facility] [id number] [place] [address] 31742- 2244 Apr, [facility] [id number] [place] [address] 89718 -2305 Apr, Neck pain M54.2 ; Left hip pain M25.552 and Fall, initial encounter W19.XXXA [facility] [address] 80661- 5293 Apr, Unspecified episodic mood disorder F39 ; Combined drug dependence excluding opioids, 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 ; Anxiety F41.9 ; Other psychoactive substance dependence, uncomplicated F19.20 and Other disorder of impulse control F63.89 [facility] [id number] [place] [address] 12405- 0917 Apr, [facility] [id number] [place] [address] 47976- 4015 Apr, Arthritis M19.90 and Unspecified episodic mood disorder F39 [facility] [id number] [place] [address] 91438- 5402 Apr, Unspecified episodic mood disorder F39 [facility] [id number] [place] [address] 11801- 3521 13 Apr, 2017 [facility] [id number] [place] [address] 37535- 9204 08 Apr, 2017 [facility] [address] 01394- 3803 Apr, Unspecified episodic mood disorder F39 ; Combined drug dependence excluding opioids, 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 ; Anxiety F41.9 ; Other psychoactive substance dependence, uncomplicated F19.20 and Other disorder of impulse control F63.89 [facility] [address] [place] [address] 07341- 0913 Mar, Unspecified episodic mood disorder F39 [facility] [id number] [place] [address] 18862- 8120 Mar, Gastroesophageal reflux disease, esophagitis presence not specified K21.9 [facility] [id number] [place] [address] 43985- 3299 Mar, Arthritis M19.90 and Unspecified episodic mood disorder F39 [facility] [id number] [place] [address] 50386- 9792 Feb, [facility] [id number] [place] [address] 64337- 2522 Feb, [facility] [id number] [place] [address] 03138- 3942 Feb, [facility] [id number] [place] [address] 75319- 5264 Feb, Arthritis M19.90 [facility] [id number] [place] [address] 01900- 7505 Feb, Non-pressure chronic ulcer of right calf, 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 ; Unspecified episodic mood disorder F39 and Left hip pain M25.552 [facility] [id number] [place] [address] 17727- 8922 Feb, [facility] [address] 46286- 3807 Feb, [facility] [id number] [place] [address] 66463- 5767 Jan, Arthritis M19.90 [facility] [id number] [place] [address] 27531- 4558 Jan, Left hip pain M25.552 and Non-pressure chronic ulcer of right calf, 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 [facility] [id number] [place] [address] 24862- 3986 Jan, Chronic hepatitis C without hepatic coma B18.2 [place] [address] 98492- 6140 Jan, Encounter for immunization Z23 ; Venous insufficiency ( chronic) (peripheral) I87.2 ; Non-pressure chronic ulcer of unspecified calf limited to breakdown of skin L97.201 and Gastroesophageal reflux disease, esophagitis presence not specified K21.9 [place] [id number] [place] [address] 49171- 6156 Jan, [place] [address] 25339- 4563 Jan, Chronic hepatitis C without hepatic coma B18.2 and Encounter for immunization Z23 [place] [address] 08297- 0240 Jan, Arthritis M19.90 [place] [id number] [place] [address] 80983- 5113 Jan, [place] [id number] [place] [address] 48102- 9353 Dec, [place] [id number] [place] [address] 79622- 3084 Dec, Unspecified episodic mood disorder F39 [place] [address] 81702- 3062 Dec, Arthritis M19.90 [place] [id number] [place] [address] 71723- 4569 Dec, Arthritis M19.90 [place] [address] 68268- 6313 Nov, [facility] [address] [address] Nov, [facility] [id number] [place] [address] 87654- 6810 Nov, Other psychoactive substance dependence, uncomplicated F19.20 ; 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, 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 and Chronic hepatitis C without hepatic coma B18.2 [facility] [id number] [place] [address] 78370- 0068 Nov, Arthritis M19.90 [facility] [id number] [place] [address] 66609 -1677 Oct, Partial thickness burn of abdomen, initial encounter T21.22XA [facility] [id number] [place] [address] 72539- 7536 Oct, [facility] [id number] [place] [address] 62924- 8085 Sep, Arthritis M19.90 [facility] [id number] [place] [address] 81796- 1749 Sep, [facility] [id number] [place] [address] 84337- 2840 Sep, [facility] [id number] [place] [address] 69471- 1720 Sep, Unspecified episodic mood disorder F39 ; Chronic hepatitis C without hepatic coma B18.2 and Left hip pain M25.552 [facility] [address] [place] [address] 41329- 1935 Sep, Arthritis M19.90 and Left hip pain M25.552 [facility] [id number] [place] [address] 83087- 9275 Aug, [facility] [id number] [place] [address] 88144- 0605 Aug, [facility] [id number] [place] [address] 59432- 3687 Aug, Chronic hepatitis C without hepatic coma B18.2 [facility] [id number] [place] [address] 64904- 5566 Aug, [facility] [id number] [place] [address] 89071- 1532 Aug, Chronic hepatitis C without hepatic coma B18.2 [facility] [id number] [place] [address] 31815- 3133 Aug, 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, 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 [facility] [id number] [place] [address] 10392- 7123 Aug, [facility] [id number] [place] [address] 99221- 4399 Aug, Chronic hepatitis C without hepatic coma B18.2 and Hypertension I10 [facility] [id number] [place] [address] 41027- 9468 Jul, [facility] [id number] [place] [address] 60335- 0099 June, [facility] [id number] [place] [address] 60561- 0451 Apr, Fibromyalgia M79.7 ; Left hip pain M25.552 and Decubitus ulcer of sacral region, stage 1 L89.151 [facility] [id number] [place] [address] 94916- 6780 Apr, [facility] [id number] [place] [address] 53034- 9770 Apr, [facility] [id number] [place] [address] 20315- 5621 Feb, [facility] [id number] [place] [address] 45387- 7759 Dec, Anxiety F41.9 ; Combined drug dependence excluding opioids, 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 and Unspecified episodic mood disorder F39 [facility] [id number] [place] [address] 86121- 5949 Dec, [facility] [id number] [place] [address] 02933- 1797 Nov, [facility] [id number] [place] [address] 29397- 9538 Nov, [facility] [id number] [place] [address] 24374- 3115 Nov, Other disorder of impulse control F63.89 and Anxiety F41.9 [facility] [id number] [place] [address] 29670- 7953 Oct, [facility] [id number] [place] [address] 41756 -2721 14 Oct, 2015 Open wound of left thigh, initial encounter S71.102A [facility] [id number] [place] [address] 79810- 2185 Oct, [facility] [id number] [place] [address] 08873- 9821 Sep, Unspecified episodic mood disorder F39 ; Other disorder of impulse control 312.39 ; Combined drug dependence excluding opioids, 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 and Anxiety F41.9 [facility] [address] [place] [address] 23878- 2570 Sep, Other disorder of impulse control 312.39 ; Combined drug dependence excluding opioids, 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 ; Anxiety F41.9 and Unspecified episodic mood disorder F39 [facility] [id number] [place] [address] 85930- 5010 Sep, Other chronic pain G89.29 [facility] [id number] [place] [address] 74676- 2849 Sep, [facility] [id number] [place] [address] 78424- 8208 Sep, [facility] [address] [address]- 2188 Aug, [facility] [id number] [place] [address] 88431- 1882 Aug, [facility] [id number] [place] [address] 70579- 4302 Aug, [facility] [id number] [place] [address] 31947- 7782 Jul, [facility] [id number] [place] [address] 38926- 5628 Jul, [facility] [id number] [place] [address] 91924- 3596 Jul, [facility] [id number] [place] [address] 87728- 5266 Jul, Arthritis M19.90 ; Chronic hepatitis C without hepatic coma B18.2 and Left hip pain M25.552 [facility] [id number] [place] [address] 42599- 3385 Jul, Left knee pain M25.562 [facility] [id number] [place] [address] 43209- 5393 Jul, Combined drug dependence excluding opioids, 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 ; Anxiety F41.9 ; Other disorder of impulse control 312.39 and Unspecified episodic mood disorder F39 [facility] [address] [place] [address] 83166- 6703 Jul, Left knee pain M25.562 [facility] [id number] [place] [address] 27187- 8913 08 Jul, 2015 Left knee pain M25.562 and Left hip pain M25.552 [facility] [id number] [place] [address] 83261- 6220 Jul, [facility] [id number] [place] [address] 28044- 7004 June, [facility] [address] [place] [address] 87585- 4906 June, Combinations of drug dependence excluding opioid type drug, unspecified abuse 304.80 ; Other disorder of impulse control 312.39 ; Unspecified episodic mood disorder F39 and Anxiety F41.9 [facility] [id number] [place] [address] 06181- 1872 June, Other fatigue R53.83 ; Headache R51 and Left knee pain M25.562 [place] [id number] [place] [address] 62506- 8768 June, Unspecified episodic mood disorder F39 ; Combinations of drug dependence excluding opioid type drug, unspecified abuse 304.80 ; Other disorder of impulse control 312.39 and Anxiety F41.9 [place] [id number] [place] [address] 41549- 8880 June, Anxiety F41.9 [facility] [id number] [place] [address] 71500- 3789 June, Pain in left knee M25.562 [place] [id number] [place] [address] 81972- 6190 June, Anxiety F41.9 and Combinations of drug dependence excluding opioid type drug, unspecified abuse 304.80 [place] [address] [place] [address] 78476- 4651 June, Unspecified episodic mood disorder 296.90 ; Combinations of drug dependence excluding opioid type drug, unspecified abuse 304.80 and Other disorder of impulse control 312.39 [place] [id number] [place] [address] 96077- 4677 June, Anxiety F41.9 and Unspecified episodic mood disorder 296.90 [place] [address] [place] [address] 16045- 1684 May, Arthritis M19.90 [place] [id number] [place] [address] 53274- 5474 May, Arthritis M19.90 [facility] [address] [address]- 1302 May, Anxiety F41.9 ; Combinations of drug dependence excluding opioid type drug, unspecified abuse 304.80 and Other disorder of impulse control 312.39 [facility] [address] [place] [address] 70023- 0834 May, Left knee pain M25.562 [facility] [id number] [place] [address] 70247- 0791 May, Arthritis M19.90 [facility] [id number] [place] [address] 21360- 8070 May, [facility] [id number] [place] [address] 06978- 5940 May, Anxiety F41.9 ; Unspecified episodic mood disorder 296.90 ; Combinations of drug dependence excluding opioid type drug, unspecified abuse 304.80 and Other disorder of impulse control 312.39 [facility] [address] [place] [address] 71321- 5711 May, Left knee pain M25.562 [facility] [address] [place] [address] 32057- 0564 May, Left knee pain M25.562 ; Combinations of drug dependence excluding opioid type drug, unspecified abuse 304.80 ; Other disorder of impulse control 312.39 ; Fibromyalgia M79.7 ; Hypertension I10 ; Unspecified episodic mood disorder 296.90 and Left hip pain M25.552 [facility] [address] [place] [address] 97983- 3245 May, Unspecified episodic mood disorder 296.90 ; Other disorder of impulse control 312.39 ; Combinations of drug dependence excluding opioid type drug, unspecified abuse 304.80 and Anxiety F41.9 [facility] [address] [place] [address] 99428- 6597 May, Left knee pain M25.562 ; Combinations of drug dependence excluding opioid type drug, unspecified abuse 304.80 ; Other disorder of impulse control 312.39 ; Fibromyalgia M79.7 ; Hypertension I10 ; Unspecified episodic mood disorder 296.90 and Left hip pain M25.552 [facility] [address] [address]- 1190 04 May, 2015 Anxiety F41.9 ; Unspecified episodic mood disorder 296.90 ; Other disorder of impulse control 312.39 and Combinations of drug dependence excluding opioid type drug, unspecified abuse 304.80 [facility] [address] [place] [address] 53073- 4515 30 Apr, 2015 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 and 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, implants and grafts, initial encounter T84.82XA [facility] [id number] [place] [address] 90709- 3935 28 Apr, 2015 Anxiety F41.9 ; Unspecified episodic mood disorder 296.90 ; Combinations of drug dependence excluding opioid type drug, unspecified abuse 304.80 and Other disorder of impulse control 312.39 [facility] [id number] [place] [address] 12265- 5478 Apr, Arthritis M19.90 [facility] [address] [place] [address] 66145- 0521 Apr, Anxiety F41.9 ; Unspecified episodic mood disorder 296.90 ; Combinations of drug dependence excluding opioid type drug, unspecified abuse 304.80 and Other disorder of impulse control 312.39 [facility] [address] [place] [address] 11484- 2044 17 Apr, 2015 Arthritis M19.90 [facility] [id number] [place] [address] 66915- 4384 15 Apr, 2015 [facility] [id number] [place] [address] 66700- 7806 15 Apr, 2015 [facility] [id number] [place] [address] 78433- 0879 Apr, Unspecified episodic mood disorder 296.90 ; Combinations of drug dependence excluding opioid type drug, unspecified abuse 304.80 ; Other disorder of impulse control 312.39 and Anxiety F41.9 [facility] [id number] [place] [address] 54530 -8041 Apr, Left knee pain M25.562 [facility] [id number] [place] [address] 95201- 5325 Apr, [facility] [address] 71897- 3374 Mar, Unspecified episodic mood disorder 296.90 ; Anxiety F41.9 ; Other disorder of impulse control 312.39 and Combinations of drug dependence excluding opioid type drug, unspecified abuse 304.80 [facility] [id number] [place] [address] 76135- 7292 Mar, Hyperpigmentation L81.9 [facility] [address] 76819- 1265 Mar, Arthritis M19.90 and Anxiety F41.9 [place] [address] 25963- 6076 Mar, Unspecified episodic mood disorder F39 ; Combined drug dependence excluding opioids, 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 ; Other disorder of impulse control F63.89 and Anxiety F41.9 [facility] [id number] [place] [address] 05776- 3621 12 Mar, 2015 Well woman exam Z01.419 ; Other fatigue R53.83 ; Hot flashes N95.1 ; Depression, unspecified depression type F32.9 and Body mass index (BMI) of 23.0-23.9 in adult Z68.23 [place] [address] 49979- 9011 11 Mar, 2015 Unspecified episodic mood disorder 296.90 ; Other disorder of impulse control 312.39 and Anxiety F41.9 [place] [address] 77917- 0410 11 Mar, 2015 Well woman exam Z01.419 [...] of breast Z12.39 and Limited mobility Z74.[address] 27940- 2476 Mar, [address] 63003- 8924 Mar, [address] 07909- 8213 Mar, [address] 35998- 1324 Mar, Other specified complication of internal orthopedic prosthetic devices, implants and grafts, initial encounter T84.89XA ; Fibromyalgia M79.7 ; Hypertension I10 ; Anemia D64.9 ; Insomnia G47.00 ; Anxiety F41.9 ; Arthritis M19.90 and Migraine G43.[address] 61745- 0724 Mar, [address] 90697- 2701 Feb, [address] [address] Feb, Arthritis M19.90 and Anxiety F41.9 [id number] [address] Feb, [facility] [address] [address] Feb, [facility] [address] [address] 8979 Feb, [facility] [address] [address] 4958 Feb, [facility] [address] [address] 4[address] Feb, Anxiety F41.9 [facility] [id number] [place] [address] 9[address]- 4058 Feb, [facility] [address] [address] 9771 Feb, [facility] [address] [address] 6149 Feb, 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 and Fibromyalgia M79.7 [facility] [address] [address] 4[address] Feb, [facility] [address] [address] 1683 Jan, [facility] [address] [address]- 5514 Jan, [facility] [id number] [address] 0279 Jan, [facility] [address] [address]- 5484 24 Jan, 2015 [facility] [id number] [address] 9610 Jan, [facility] [id number] [address]- 0[address] 08 Jan, 2015 [facility] [address] [address]- 9612 Jan, [facility] [id number] [place] [address] 734757- 8180 Jan, [facility] [id number] [place] [address] 118785- 7638 Dec, [facility] [id number] [place] [address] 303561- 1290 Dec, Left knee pain M25.562 [facility] [id number] [place] [address] 07805- 4284 Dec, Left knee pain M25.562 [facility] [id number] [place] [address] 98296- 1704 Dec, Fibromyalgia M79.7 ; Hypertension I10 and Arthritis M19.90 [facility] [id number] [place] [address] 66870- 1228 Dec, [facility] [id number] [place] [address] 27724- 7052 Dec, [facility] [id number] [place] [address] 85178- 7769 Dec, [facility] [id number] [place] [address] 99698- 9536 Dec, [facility] [id number] [place] [address] 33242- 2818 Nov, [facility] [id number] [place] [address] 32677- 7656 Nov, [facility] [id number] [place] [address] 577010- 3756 Nov, [facility] [id number] [place] [address] 51892- 6448 Nov, Hypertension I10 [facility] [id number] [place] [address] 020901- 9971 Oct, [facility] [place] [facility] [address] [id number] [place] [address]- 9340 Oct, 2014 [facility] [place] [facility] [address] [id number] [place] [address]- 8337 Oct, 2014 [facility] [place] [facility] [address] [id number] [place] [address]- 1502 Oct, 2014 [facility] [place] [facility] [address] [id number] [place] [address]- 6804 Oct, [facility] [place] [facility] [address] [id number] [place] [address]- 5982 Sep, [facility] [place] [facility] [address] [id number] [place] [address]- 4184 Sep, [facility] [place] [facility] [address] [id number] [place] [address]- 6189 Sep, Hip pain associated with recalled total hip arthroplasty hardware 996.77 [facility] [place] [facility] [address] [id number] [place] [address]- 9942 Sep, [facility] [place] [facility] [address] [id number] [place] [address]- 3055 Sep, [facility] [place] [facility] [address] [facility] [id number] [place] [address]- 9132 Sep, [facility] [place] [facility] [address] [id number] [place] [address]- 9094 Aug, [facility] [place] [facility] [address] [id number] [place] [address]- 7493 Jul, [facility] [place] [facility] [address] [id number] [place] [address]- 6815 June, [facility] [place] [facility] [address] [id number] [place] [address]- 3759 June, [facility] [place] [facility] [address] [id number] [place] [address]- 7230 June, [facility] [place] [facility] [address] [id number] [place] [address]- 7723 June, [facility] [place] [facility] [address] [id number] [place] [address]- 3775 June, [facility] [place] [facility] [address] [id number] [place] [address]- 7616 June, [facility] [place] [facility] [address] [id number] [place] [address]- 7290 May, [facility] [place] [facility] [address] [id number] [place] [address]- 0330 May, [facility] [place] [facility] [address] [id number] [place] [address]- 1957 May, [facility] [place] [facility] [address] [id number] [place] [address]- 8086 Apr, [facility] [place] [facility] [address] [id number] [place] [address]- 4566 Apr, [facility] [place] [facility] [address] [id number] [place] [address]- 5284 Apr, [facility] [place] [facility] [address] [id number] [place] [address]- 2422 Apr, [facility] [place] [facility] [address] [id number] [place] [address]- 8147 Apr, [facility] [place] [facility] [address] [id number] [place] [address]- 1931 Apr, [facility] [place] [facility] [address] [id number] [place] [address]- 9730 Apr, [facility] [place] [facility] [address] [id number] [place] [address]- 4743 Apr, [facility] [place] [facility] [address] [id number] [place] [address]- 7376 10 Apr, 2014 [facility] [place] [facility] [address] [id number] [place] [address]- 6104 Apr, [facility] [place] [facility] [address] [id number] [place] [address]- 5784 Apr, [facility] [place] [facility] [address] [id number] [place] [address]- 2038 Mar, [facility] [place] [facility] [address] [facility] [id number] [place] [address]- 3854 Mar, [facility] [place] [facility] [address] [id number] [place] [address]- 4069 Mar, 2014 [facility] [place] [facility] [address] [id number] [place] [address]- 0929 Mar, 2014 [facility] [place] [facility] [address] [facility] [id number] [place] [address]- 7255 Mar, [facility] [place] [facility] [address] [facility] [id number] [place] [address]- 6707 Mar, [facility] [place] [facility] [address] [facility] [id number] [place] [address]- 8322 Feb, [facility] [place] [facility] [address] [facility] [id number] [place] [address]- 9597 Feb, [facility] [place] [facility] [address] [facility] [id number] [place] [address]- 2169 Feb, [facility] [place] [facility] [address] [facility] [id number] [place] [address]- 0205 Feb, [facility] [place] [facility] [address] [facility] [id number] [address]- 1805 Jan, [facility] [place] [facility] [address] [id number] [place] [address]- 1331 Jan, [facility] [place] [facility] [address] [facility] [id number] [place] Jan, [facility] [place] [facility] [address] [facility] [id number] [place] [address]- 4029 Jan, [facility] [place] [facility] [address] [id number] [place] [address]- 7251 Dec, [facility] [place] [facility] [address] [id number] [place] [address]- 9680 Dec, [facility] [place] [facility] [address] [id number] [place] [address]- 6257 Dec, [facility] [place] [facility] [address] [id number] [place] [address]- 1217 Dec, [facility] [place] [facility] [address] [id number] [place] [address]- 5417 Dec, [facility] [place] [facility] [address] [id number] [place] [address]- 9060 Dec, [facility] [place] [facility] [address] [id number] [place] [address]- 4606 Dec, [facility] [place] [facility] [address] [id number] [place] [address]- 8877 Dec, [facility] [place] [facility] [address] [id number] [place] [address]- 4864 Dec, [facility] [place] [facility] [address] [id number] [place] [address]- 4468 Dec, [facility] [place] [facility] [address] [id number] [place] [address]- 9928 Dec, [facility] [place] [facility] [address] [id number] [place] [address]- 7815 Nov, [facility] [place] [facility] [address] [id number] [place] [address]- 5157 Nov, [facility] [place] [facility] [address] [id number] [place] [address]- 7113 Nov, [facility] [place] [facility] [address] [id number] [place] [address]- 0795 Nov, [facility] [place] [facility] [address] [id number] [place] [address]- 1594 17 Nov, 2013 [facility] [place] [facility] [address] [id number] [place] [address]- 1699 15 Nov, 2013 [facility] [place] [facility] [address] [id number] [place] [address]- 6895 15 Nov, 2013 [facility] [place] [facility] [address] [id number] [place] [address]- 1804 15 Nov, 2013 [facility] [place] [facility] [address] [id number] [place] [address]- 0664 15 Nov, 2013 [facility] [place] [facility] [address] [id number] [place] [address]- 5376 14 Nov, 2013 [facility] [place] [facility] [address] [id number] [place] [address]- 9615 14 Nov, 2013 [facility] [place] [facility] [address] [id number] [place] [address]- 5236 14 Nov, 2013 [facility] [place] [facility] [address] [id number] [address]- 5933 14 Nov, 2013 [facility] [place] [facility] [address] [id number] [place] [address]- 3732 13 Nov, 2013 [facility] [place] [facility] [address] [id number] [place] [address]- 3651 13 Nov, 2013 [facility] [place] [facility] [address] [id number] [place] [address]- 2877 11 Nov, 2013 [facility] [place] [facility] [address] [id number] [place] [address]- 7061 11 Nov, 2013 [facility] [place] [facility] [address] [id number] [place] [address]- 1132 07 Nov, 2013 [facility] [place] [facility] [address] [id number] [place] [address]- 2609 07 Nov, 2013 [facility] [place] [facility] [address] [id number] [place] [address]- 0090 07 Nov, 2013 [facility] [place] [facility] [address] [id number] [place] [address]- 0601 07 Nov, 2013 [facility] [place] [facility] [address] [id number] [place] [address] 2546 30 Sep, 2013 [facility] [place] [facility] [address] [id number] [place] [address] 2546 30 Oct, 2013 [facility] [place] [facility] [address] [id number] [place] [address] 254 26 Oct, 2013 [facility] [place] [facility] [address] [id number] [place] [address] 2541 26 Oct, 2013 [facility] [place] [facility] [address] [id number] [place] [address]- 2583 22 Oct, 2013 [facility] [place] [facility] [address] [id number] [place] [address]- 4551 22 Oct, 2013 [facility] [place] [facility] [address] [id number] [place] [address]- 5013 18 Oct, 2013 [facility] [place] [facility] [address] [id number] [place] [address]- 2549 18 Oct, 2013 [facility] [place] [facility] [address] [id number] [place] [address] 2544 18 Oct, 2013 [facility] [place] [facility] [address] [id number] [place] [address] 2549 18 Oct, 2013 [facility] [place] [facility] [address] [id number] [place] [address] 2546 12 Oct, 2013 [facility] [place] [facility] [address] [id number] [place] [address]- 2545 12 Oct, 2013 [facility] [place] [facility] [address] [id number] [place] [address] 254 03 Oct, 2013 [facility] [place] [facility] [address] [id number] [place] [address]- 2540 03 Oct, 2013 [facility] [place] [facility] [address] [id number] [place] [address]- 7759 Sep, [facility] [place] [facility] [address] [id number] [place] [address]- 2810 Sep, [facility] [place] [facility] [address] [id number] [place] [address]- 0371 Sep, [facility] [place] [facility] [address] [id number] [place] [address]- 0352 Sep, [facility] [place] [facility] [address] [id number] [place] [address]- 7299 Sep, [facility] [place] [facility] [address] [id number] [place] [address]- 9278 Sep, [facility] [place] [facility] [address] [id number] [place] [address]- 9643 Sep, [facility] [place] [facility] [address] [id number] [place] [address]- 5620 Sep, [facility] [place] [facility] [address] [id number] [place] [address]- 3658 Sep, [facility] [place] [facility] [address] [id number] [place] [address]- 7943 Sep, [facility] [place] [facility] [address] [id number] [place] [address]- 7835 Sep, [facility] [place] [facility] [address] [id number] [place] [address]- 2140 Sep, [facility] [place] [facility] [address] [id number] [place] [address]- 1769 Sep, [facility] [place] [facility] [address] [id number] [place] [address]- 2812 Sep, [facility] [place] [facility] [address] [id number] [place] [address]- 8379 Sep, [facility] [place] [facility] [address] [id number] [place] [address]- 2345 Sep, [facility] [place] [facility] [address] [id number] [place] [address]- 2546 Sep, [facility] [place] [facility] [address] [id number] [place] [address]- 7848 Sep, [facility] [place] [facility] [address] [id number] [place] [address]- 8060 Aug, [facility] [place] [facility] [address] [id number] [place] [address]- 6449 Aug, [facility] [place] [facility] [address] [id number] [place] [address]- 9966 Aug, [facility] [place] [facility] [address] [id number] [place] [address]- 5499 Aug, [facility] [place] [facility] [address] [id number] [place] [address]- 6524 Aug, [facility] [place] [facility] [address] [id number] [place] [address]- 3058 Aug, [facility] [place] [facility] [address] [id number] [place] [address]- 8874 Jul, [facility] [place] [facility] [address] [id number] [place] [address]- 4733 Jul, [facility] [place] [facility] [address] [id number] [place] [address]- 6516 Jul, [facility] [place] [facility] [address] [id number] [place] [address]- 0380 Jul, [facility] [place] [facility] [address] [id number] [place] [address]- 1082 June, [facility] [place] [facility] [address] [id number] [place] [address]- 8276 June, [facility] [place] [facility] [address] [id number] [place] [address]- 9561 June, [facility] [place] [facility] [address] [id number] [place] [address]- 2623 June, [facility] [place] [facility] [address] [id number] [place] [address]- 5849 June, [facility] [address] [id number] [place] [address]- 6632 June, [facility] [place] [facility] [address] [id number] [place] [address]- 6516 June, [facility] [address] [id number] [place] [address]- 0126 May, [facility] [place] [facility] [address] [id number] [place] [address]- 5411 May, [facility] [address] [id number] [place] [address]- 4913 May, [facility] [place] [facility] [address] [id number] [place] [address]- 7605 May, [facility] [place] [facility] [address] [id number] [place] [address]- 1018 May, [facility] [address] [id number] [place] [address]- 7096 May, [facility] [place] [facility] [address] [id number] [place] [address]- 2675 31 Apr, 2013 [facility] [address] [id number] [place] [address]- 8990 31 Apr, 2013 [facility] [place] [facility] [address] [id number] [place] [address]- 5312 28 Apr, 2013 [facility] [place] [facility] [address] [id number] [place] [address]- 1708 28 Apr, 2013 [facility] [place] [facility] [address] [id number] [place] [address]- 8875 14 Apr, 2013 [facility] [place] [facility] [address] [id number] [place] [address]- 8034 14 Apr, 2013 [facility] [place] [facility] [address] [id number] [place] 8598 Apr, [facility] [place] [facility] [address] [id number] [place] [address]- 7282 Apr, [facility] [place] [facility] [address] [id number] [place] [address]- 4081 Apr, [facility] [place] [facility] [address] [id number] [place] [address]- 0998 Apr, [facility] [place] [facility] [address] [id number] [place] [address]- 0477 Apr, [facility] [place] [facility] [address] [id number] [place] [address]- 1237 Apr, [facility] [place] [facility] [address] [id number] [place] [address]- 2315 Apr, [facility] [place] [facility] [address] [id number] [place] [address]- 0615 Apr, [facility] [place] [facility] [address] [id number] [place] [address]- 7041 Mar, [facility] [place] [facility] [address] [id number] [place] [address]- 0334 Mar, [facility] [place] [facility] [address] [id number] [place] [address]- 3449 Mar, [facility] [place] [facility] [address] [id number] [place] [address]- 9139 Feb, [facility] [place] [facility] [address] [id number] [place] [address]- 1016 Feb, [facility] [place] [facility] [address] [id number] [place] [address]- 3683 Feb, [facility] [place] [facility] [address] [id number] [place] [address]- 4644 Feb, [facility] [place] [facility] [address] [id number] [place] [address] Feb, [facility] [place] [facility] [address] [id number] [place] [address] Feb, [facility] [address] [id number] [place] [address] Feb, [facility] [address] [id number] [place] [address] Feb, [facility] [address] [id number] [place] [address] Feb, [facility] [address] [id number] [place] [address] Feb, [facility] [address] [id number] [place] [address] Jan, [facility] [address] [id number] [place] [address] Jan, [facility] [address] [id number] [place] [address] Jan, [facility] [address] [id number] [place] [address] Jan, [facility] [address] [id number] [place] [address] Jan, [facility] [address] [id number] [place] [address] Jan, [facility] [address] [id number] [place] [address] 12[address] Jan, [facility] [address] [id number] [place] [address] Jan, [facility] [place] [facility] [address] [id number] [place] [address] Jan, [facility] [place] [facility] [address] [id number] [place] [address] Jan, [facility] [address] [id number] [place] [address] 17 Jan, 2013 [facility] [address] [id number] [place] [address] 17 Jan, 2013 [facility] [address] [id number] [place] [address] 16 Jan, 2013 [facility] [place] [facility] [address] [id number] [place] [address] Jan, [facility] [place] [facility] [address] [id number] [place] [address] Jan, [facility] [place] [facility] [address] [id number] [place] [address] Jan, [facility] [place] [facility] [address] [id number] [place] [address] Jan, [facility] [address] [id number] [place] [address] 99[address] Jan, [facility] [place] [facility] [address] [id number] [place] [address] Jan, [facility] [place] [facility] [address] [id number] [place] [address] 3069 Jan, [facility] [place] [facility] [address] [id number] [place] [address] Jan, [facility] [place] [facility] [address] [id number] [place] [address] Dec, [facility] [place] [facility] [address] [id number] [place] [address] 15[address] Dec, [facility] [place] [facility] [address] [id number] [place] [address] Dec, [facility] [place] [facility] [address] [id number] [place] [address] 1473 Dec, [facility] [place] [facility] [address] [id number] [place] [address] Dec, [facility] [place] [facility] [address] [id number] [place] [address] Dec, [facility] [place] [facility] [address] [id number] [place] [address] 27[address] Dec, [facility] [place] [facility] [address] [id number] [place] [address] 9468 Dec, [facility] [place] [facility] [address] [id number] [place] [address] 1427 Dec, [facility] [place] [facility] [address] [id number] [place] [address] Dec, [facility] [place] [facility] [address] [id number] [place] [address] 16[address] Nov, [facility] [place] [facility] [address] [id number] [place] [address] Nov, [facility] [place] [facility] [address] [id number] [place] [address] 69[address] Nov, [facility] [place] [facility] [address] [id number] [place] [address] Nov, [facility] [place] [facility] [address] [id number] [place] [address] 90[address] Nov, [facility] [place] [facility] [address] [id number] [place] [address] Nov, [facility] [place] [facility] [address] [id number] [place] [address] Nov, [facility] [place] [facility] [address] [id number] [place] [address] Nov, [facility] [place] [facility] [address] [id number] [place] [address]65 10 Nov, 2012 [facility] [place] [facility] [address] [id number] [place] [address] Nov, [facility] [place] [facility] [address] [id number] [place] [address] Oct, [facility] [place] [facility] [address] [id number] [place] [address] 0661 Oct, [facility] [address] [id number] [place] [address] 37[address] Oct, [facility] [address] [id number] [place] [address] 9[address] Oct, [facility] [address] [id number] [place] [address] Oct, [facility] [address] [id number] [place] [address] Sep, [facility] [address] [id number] [place] [address] Sep, [facility] [address] [id number] [place] [address] 1634 Aug, [facility] [address] [id number] [place] [address] 9869 Aug, [facility] [address] [id number] [place] [address] Aug, [facility] [facility] [address] [id number] [place] [address] Aug, [facility] [address] [id number] [place] [address] Aug, [facility] [place] [facility] [address] [id number] [place] [address] 70[address] Aug, [facility] [address] [id number] [place] [address] 39[address] Aug, [facility] [place] [facility] [address] [id number] [place] [address] 1852 Jul, [facility] [place] [facility] [address] [id number] [place] [address]41 Jul, [facility] [address] [id number] [place] [address]289 June, [facility] [address] [id number] [place] [address] 1573 June, [facility] [address] [id number] [place] [address] 6842 June, [facility] [address] [id number] [place] [address] June, [facility] [address] [id number] [place] [address] 8[address] June, [facility] [address] [id number] [place] [address] 6363 June, [facility] [address] [id number] [place] [address] 0575 June, [facility] [address] [id number] [place] [address] 8305 June, [facility] [address] [id number] [place] [address] 4[address] June, [facility] [address] [id number] [place] [address] 3103 June, [facility] [address] [id number] [place] [address] 8569 June, [facility] [address] [id number] [place] [address] 7951 May, [facility] [place] [facility] [address] [id number] [place] [address] 8917 May, [facility] [place] [facility] [address] [id number] [place] [address] 5734 May, [facility] [place] [facility] [address] [id number] [place] [address] 6725 May, [facility] [place] [facility] [address] [id number] [place] [address] 0319 Apr, [facility] [place] [facility] [address] [id number] [place] [address] 37[address] Apr, [facility] [address] [id number] [place] [address] 7570 Apr, [facility] [address] [id number] [place] [address] 2255 Mar, [facility] [address] [id number] [place] [address] 2046 Mar, [facility] [address] [id number] [place] [address]- 5478 Feb, [facility] [address] [id number] [place] [address] 9018 Feb, [facility] [address] [id number] [place] [address] 0262 Feb, [facility] [address] [id number] [place] [address] 8085 Feb, [facility] [address] [id number] [place] [address] 8908 Feb, [facility] [address] [id number] [place] [address] 3768 Feb, [facility] [address] [id number] [place] [address] 4538 Feb, [facility] [address] [id number] [place] [address] 4284 31 Jan, 2012 [facility] [address] [id number] [place] [address]- 1187 31 Jan, 2012 [facility] [address] [id number] [place] [address]- 9585 28 Jan, 2012 [facility] [address] [id number] [place] [address] 2157 17 Jan, 2012 [facility] [address] [id number] [place] [address]- 7736 17 Jan, 2012 [facility] [place] [facility] [address] [id number] [place] [address]- 1105 Jan, [facility] [place] [facility] [address] [id number] [place] [address]- 5596 Jan, [facility] [place] [facility] [address] [id number] [place] [address]- 5646 Jan, [facility] [place] [facility] [address] [id number] [place] [address]- 5646 Jan, [facility] [place] [facility] [address] [id number] [place] [address]- 8624 Jan, [facility] [place] [facility] [address] [id number] [place] [address]- 6946 Jan, [facility] [place] [facility] [address] [id number] [place] [address]- 4010 Dec, [facility] [place] [facility] [address] [id number] [place] [address]- 1165 Dec, [facility] [place] [facility] [address] [id number] [place] [address]- 6816 Dec, [facility] [place] [facility] [address] [id number] [place] [address]- 3831 Dec, [facility] [place] [facility] [address] [id number] [place] [address]- 5056 Nov, [facility] [place] [facility] [address] [id number] [place] [address]- 4407 Nov, [facility] [place] [facility] [address] [id number] [place] [address]- 4365 Nov, [facility] [place] [facility] [address] [id number] [place] Oct, [facility] [place] [facility] [address] [id number] [place] [address]- 2544 24 Oct, 2011 [facility] [place] [facility] [address] [id number] [place] [address] 1366 Oct, 2011 [facility] [place] [facility] [address] [id number] [place] [address]- 3426 10 Oct, 2011 [facility] [place] [facility] [address] [id number] [place] [address]- 7096 07 Oct, 2011 [facility] [place] [facility] [address] [id number] [place] [address]- 4666 Oct, [facility] [place] [facility] [address] [id number] [place] [address]- 8755 04 Oct, 2011 [facility] [place] [facility] [address] [id number] [place] [address]- 7084 29 Sep, 2011 [facility] [place] [facility] [address] [id number] [place] [address]- 2383 Sep, [facility] [place] [facility] [address] [id number] [place] [address]- 9227 Sep, [facility] [place] [facility] [address] [id number] [place] [address]- 0899 Sep, [facility] [place] [facility] [address] [id number] [place] [address]- 2945 Sep, [facility] [place] [facility] [address] [id number] [place] [address]- 4977 Aug, [facility] [place] [facility] [address] [id number] [place] [address]- 0504 Aug, [facility] [place] [facility] [address] [id number] [place] [address]- 1991 17 Aug, 2011 [facility] [place] [facility] [address] [id number] [place] [address]- 9416 16 Aug, 2011 [facility] [place] [facility] [address] [id number] [place] [address]- 6508 13 Aug, 2011 [facility] [place] [facility] [address] [id number] [place] [address]- 3086 Aug, [facility] [place] [facility] [address] [id number] [place] [address]- 3007 Aug, [facility] [place] [facility] [address] [id number] [place] [address]- 2830 Jul, [facility] [place] [facility] [address] [id number] [place] [address]- 1676 Jul, [facility] [place] [facility] [address] [id number] [place] [address]- 7868 Jul, [facility] [place] [facility] [address] [id number] [place] [address]- 0592 Jul, [facility] [place] [facility] [address] [id number] [place] [address]- 1962 Jul, [facility] [place] [facility] [address] [id number] [place] [address]- 5313 Jul, [facility] [place] [facility] [address] [id number] [place] [address]- 5652 Jul, [facility] [place] [facility] [address] [id number] [place] [address]- 5336 Jul, [facility] [place] [facility] [address] [id number] [place] [address]- 0717 Jul, [facility] [place] [facility] [address] [id number] [place] [address]- 1579 June, [facility] [place] [facility] [address] [id number] [place] [address]- 5691 June, [facility] [place] [facility] [address] [id number] [place] [address]- 9338 June, [facility] [place] [facility] [address] [id number] [place] [address]- 9980 June, [facility] [place] [facility] [address] [id number] [place] [address]- 8969 June, [facility] [place] [facility] [address] [id number] [place] [address]- 6373 June, [facility] [place] [facility] [address] [id number] [place] [address]- 6949 June, [facility] [address] [id number] [place] [address]- 0009 June, [facility] [address] [id number] [place] [address]- 8197 May, [facility] [address] [id number] [place] [address]- 2128 23 May, 2011 [facility] [address] [id number] [place] [address]- 9404 May, [facility] [address] [id number] [place] [address]- 2535 May, [facility] [address] [id number] [place] [address]- 4891 May, [facility] [address] [id number] [place] [address]- 1169 May, [facility] [address] [id number] [place] [address]- 1878 May, [facility] [address] [id number] [place] [address]- 2513 Apr, [facility] [address] [id number] [place] [address]- 1349 Apr, [facility] [place] [facility] [address] [id number] [place] [address]- 7451 Apr, [facility] [place] [facility] [address] [id number] [place] [address]- 0652 Apr, [facility] [place] [facility] [address] [id number] [place] [address]- 2922 Apr, [facility] [address] [id number] [place] [address]- 7687 06 Apr, 2011 [facility] [place] [facility] [address] [id number] [place] [address]- 3867 Apr, [facility] [address] [id number] [place] [address]- 8326 Mar, [facility] [place] [facility] [address] [id number] [place] [address]- 0216 Mar, [facility] [place] [facility] [address] [id number] [place] [address]- 5766 14 Mar, 2011 [facility] [place] [facility] [address] [id number] [place] [address]- 8046 13 Mar, 2011 [facility] [place] [facility] [address] [id number] [place] [address]- 5816 Mar, [facility] [place] [facility] [address] [id number] [place] [address]- 6236 Mar, [facility] [address] [id number] [place] [address]- 2905 Mar, [facility] [place] [facility] [address] [id number] [place] [address]- 0456 Feb, [facility] [place] [facility] [address] [id number] [place] [address]- 0003 Feb, [facility] [address] [facility] [id number] [place] [address]- 7107 Feb, [facility] [place] [facility] [address] [id number] [place] [address]- 7986 Feb, [facility] [place] [facility] [address] [id number] [place] [address]- 2346 Feb, [facility] [place] [facility] [address] [id number] [place] [address]- 6066 Feb, [facility] [place] [facility] [address] [facility] [id number] [place] [address]- 6236 Feb, [facility] [place] [facility] [address] [id number] [place] [address]- 4198 Feb, [facility] [place] [facility] [address] [id number] [place] [address]- 9644 Feb, [facility] [address] [id number] [place] [address]- 0788 Feb, [facility] [address] [id number] [place] [address]- 3101 Jan, [facility] [address] [id number] [place] [address]- 5876 Jan, [facility] [address] [id number] [place] [address]- 5539 Jan, [facility] [address] [id number] [place] [address]- 5568 Jan, [facility] [address] [id number] [place] [address]- 7813 Jan, [facility] [address] [id number] [place] [address]- 3814 Jan, [facility] [address] [id number] [place] [address]- 5293 Jan, [facility] [address] [id number] [place] [address]- 4470 Jan, [facility] [address] [id number] [place] [address]- 2468 Jan, [facility] [address] [id number] [place] [address]- 4186 Jan, [facility] [place] [facility] [address] [id number] [place] [address]- 4453 Jan, [facility] [place] [facility] [address] [id number] [place] [address]- 5676 Dec, [facility] [place] [facility] [address] [id number] [place] [address]- 1578 Dec, [facility] [place] [facility] [address] [id number] [place] [address]- 9548 17 Dec, 2010 [facility] [place] [facility] [address] [id number] [place] [address]- 0340 16 Dec, 2010 [facility] [place] [facility] [address] [id number] [place] [address]- 6657 14 Dec, 2010 [facility] [place] [facility] [address] [id number] [place] [address]- 3231 Dec, [facility] [place] [facility] [address] [id number] [place] [address]- 3821 08 Dec, 2010 [facility] [place] [facility] [address] [id number] [place] [address]- 9719 Dec, [facility] [place] [facility] [address] [id number] [place] [address]- 2873 Dec, [facility] [place] [facility] [address] [id number] [place] [address]- 5718 Nov, [facility] [place] [facility] [address] [id number] [place] [address]- 2152 Nov, [facility] [place] [facility] [address] [id number] [place] [address]- 8937 Nov, [facility] [place] [facility] [address] [id number] [place] [address]- 7816 24 Nov, 2010 [facility] [place] [facility] [address] [id number] [place] [address]- 0964 24 Nov, 2010 [facility] [place] [facility] [address] [id number] [place] [address]- 9701 13 Nov, 2010 [facility] [place] [facility] [address] [id number] [place] [address]- 9622 Aug, [facility] [place] [facility] [address] [id number] [place] [address]- 2300 14 Feb, 2010 [facility] [place] [facility] [address] [id number] [place] [address]- 0741 14 Jan, 2010 [facility] [place] [facility] [id number] [place] [address] 4033 Jan, [facility] [id number] [place] [address]- 7821 Jan, [facility] [id number] [place] [address]- 5663 Jan, [facility] [id number] [place] [address] 17200- 9351 Jan, [facility] [id number] [place] [address] 48984- 8012 Dec, [facility] [id number] [place] [address] 284924- 6041 Dec, [facility] [id number] [place] [address] 71958- 9026 Dec, [facility] [id number] [place] [address] 06676- 5555 Dec, [facility] [id number] [place] [address]- 6284 Nov, [facility] [id number] [place] [address] 787[address]- 3743 Nov, [facility] [id number] [place] [address]- 2073 Nov, IMMUNIZATIONS Vaccine Route Administration Date Status KINRIX (DTaP/IPV) Unknown Jan 15, 2017 Administered FLUARIX QUAD (3 AND UP) 2017 IM Intramuscular Jan 15, 2017 Administered PPSV23 (PNEUMOVAX) IM Intramuscular Jan 15, 2017 Administered SOCIAL HISTORY Never Assessed REASON FOR VISIT Hep C consult--Valencia Kelsey MA PLAN OF CARE Activity Details Follow Up we will call Reason: VITAL SIGNS Height 68 in 2017-01-15 Weight 178.5 lbs 2017-01-15 Temperature 97.8 degrees Fahrenheit 2017-01-15 Heart Rate 68 bpm 2017-01-15 Respiratory Rate 20 2017-01-15 BMI 27.14 kg/m2 2017-01-15 Blood pressure systolic 122 mmHg 2017-01-15 Blood pressure diastolic 74 mmHg 2017-01-15 MEDICATIONS Medication Instructions Dosage Frequency Start Date End Date Duration Status Promethazine HCl 25 MG Orally every 12 hrs 1 tablet as needed 12h 30 Active Furosemide 20 MG Orally Once a day ONE TABLET 24h 30 Active Clonidine HCl 0.1 MG Orally twice a day 1 tablet 12h 30 Active Klonopin 1 MG Orally 3 times a day 1 tablet 8h 30 days Active Pantoprazole Sodium 40 MG Orally Once a day 1 tablet 24h Not- Taking Aspirin 81 MG Orally Once a day 1 tablet 24h 30 Active Fluoxetine HCl 40 mg Orally Once a day 2 capsule in the morning 24h 30 Active Lyrica 100 MG TAKE ONE CAPSULE BY MOUTH THREE TIMES DAILY 30 Not -Taking Epclusa 400-100 MG Orally Once a day 1 tablet 24h 12 Weeks Active Fentanyl 50 MCG/HR Transdermal 72hrs 1 patch to skin Jan, 30 days Active Sumatriptan Succinate 100 mg Orally Once a day 1 tablet as needed one time 24h 30 Active Lyrica 150 MG Orally 3 times a day 1 capsule 8h Active Nabumetone 500 MG Orally Twice a day 1 tablet 12h 30 Active Cyclobenzaprine HCl 10 MG TAKE ONE TABLET BY MOUTH THREE TIMES DAILY 30 Active RESULTS No Results PROCEDURES Procedure Date Ordered Result Body Site PPSV23 (PNEUMOVAX) Jan 15, 2017 FLUARIX QUAD (3 AND UP) 2016Jan 15, 2017 ADMN PNEUMCOC VAC NO FEE DAY Jan 15, 2017 IMMUNIZATION ADMIN, EACH ADD (please include units) Jan 15, 2017 SINGLE IMMUNIZATION ADMIN Jan 15, 2017 INSTRUCTIONS MEDICATIONS ADMINISTERED No Known [...]
--- OUTSIDE RECORDS SUMMARY | 2018-01-13 21:31 | XMS REPORT ---
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 Problem 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 Problem Left hip pain M25.552 Active Problem Anxiety F41.9 Active Problem Left knee pain M25.562 Active Problem Hypertension I10 Active Problem Unspecified episodic mood disorder 296.90 Active Problem Fibromyalgia M79.7 Active Problem Arthritis M19.90 Active Assessment Anxiety F41.9 Active Assessment Combinations of drug dependence excluding opioid type drug, 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
--- OUTSIDE RECORDS SUMMARY | 2018-01-13 21:32 | XMS REPORT ---
Author WYATT Jean Organization [employer] Address Unknown Phone Unavailable Care Team Providers Care Jelly Filter Tender Name Role Phone WYATT SOTO CP [...]
--- OUTSIDE RECORDS SUMMARY | 2018-01-13 21:32 | XMS REPORT ---
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 Active 77013437 Problem Unspecified episodic mood disorder F39 Active 54285890 Problem 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, 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 613700608 Problem Other chronic pain G89.29 Active 41443688 Problem Left hip pain M25.552 Active 98828301 Problem Anxiety F41.9 Active 98572632 Problem Chronic hepatitis C without hepatic coma B18.2 Active 471664910 Problem Left knee pain M25.562 Active 93935556 ALLERGIES Unknown Allergies SOCIAL HISTORY No smoking Hx information available PLAN OF CARE VITAL SIGNS MEDICATIONS Medication Instructions Dosage Frequency Start Date End Date Duration Status Lyrica 100 MG Orally 3 times a day 1 capsule 8h Active Klonopin 1 MG TAKE ONE TABLET BY MOUTH THREE TIMES DAILY 30 Active RESULTS No Results PROCEDURES No Known procedures IMMUNIZATIONS No Known Immunizations
--- OUTSIDE RECORDS SUMMARY | 2018-01-13 21:32 | XMS REPORT ---
Author Author WYATT SOTO [facility] [employer] Address Unknown Phone Unavailable Care Team Providers Care Gear Room Keeper Name Role Phone WYATT SOTO CP Unavailable [...] Date End Date Status Dosage Sumatriptan Succinate [facility] [id number] 100 MG Orally Once a day 1 tablet as needed one time Results No Known Results Summary Purpose eClinicalWorks Submission
--- OUTSIDE RECORDS SUMMARY | 2018-01-13 21:33 | XMS REPORT ---
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 Active 34559370 Problem Unspecified episodic mood disorder F39 Active 51884958 Problem Hypertension I10 Active 15945820 Problem Venous insufficiency (chronic) (peripheral) I87.2 Active 349925120 Problem Gastroesophageal reflux disease, esophagitis presence not specified K21.9 Active 916279132 Problem Other chronic pain G89.29 Active 14217029 Problem Chronic hepatitis C without hepatic coma B18.2 Active 183204549 Problem Other psychoactive substance dependence, uncomplicated F19.20 Active 4774164 Problem 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, 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 253162546 ALLERGIES No Information ENCOUNTERS Encounter Location Date Diagnosis [facility] [id number] [place] [address] 10296- 1178 Jul, [facility] [id number] [place] [address] 11229- 4641 Jul, [facility] [id number] [place] [address] 02506- 7740 June, Gastroesophageal reflux disease, esophagitis presence not specified K21.9 [facility] [id number] [place] [address] 77929- 3790 June, [facility] [id number] [place] [address] 64258- 2925 June, [facility] [address] [address] 1334 June, Arthritis M19.90 [facility] [address] [address] 9262 June, [facility] [address] [address] 6491 June, [facility] [id number] [place] [address] 15845- 2667 June, Unspecified episodic mood disorder F39 [facility] [id number] [place] [address] 67119- 8235 May, Unspecified episodic mood disorder F39 [facility] [address] [address] 0555 May, [facility] [id number] [place] [address] 02064- 9422 May, Arthritis M19.90 [facility] [id number] [place] [address] 73422 -2690 May, Dysuria R30.0 ; Abscess L02.91 and Acute cystitis without hematuria N30.00 [facility] [address] [address] 9731 May, 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 ; Unspecified episodic mood disorder F39 ; Combined drug dependence excluding opioids, 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 ; Anxiety F41.9 and Other psychoactive substance dependence, uncomplicated F19.20 [facility] [address] [address] 6369 May, [facility] [id number] [place] [address] 92588- 2528 May, 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 ; Unspecified episodic mood disorder F39 ; Combined drug dependence excluding opioids, 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 ; Other psychoactive substance dependence, uncomplicated F19.20 and Anxiety F41.9 [facility] [id number] [place] [address] 32202- 4188 May, Other chronic pain G89.29 ; Left hip pain M25.552 ; Hypertension I10 ; 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, 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 and Unspecified episodic mood disorder F39 [facility] [id number] [place] [address] 91359- 8919 Apr, [facility] [id number] [place] [address] 13545 -1562 Apr, Neck pain M54.2 ; Left hip pain M25.552 and Fall, initial encounter W19.XXXA [facility] [address] 41588- 2195 Apr, Unspecified episodic mood disorder F39 ; Combined drug dependence excluding opioids, 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 ; Anxiety F41.9 ; Other psychoactive substance dependence, uncomplicated F19.20 and Other disorder of impulse control F63.89 [facility] [id number] [place] [address] 68334- 7130 Apr, [facility] [id number] [place] [address] 81302- 3851 Apr, Arthritis M19.90 and Unspecified episodic mood disorder F39 [facility] [id number] [place] [address] 10108- 9048 Apr, Unspecified episodic mood disorder F39 [facility] [id number] [place] [address] 34603- 4366 Apr, [facility] [id number] [place] [address] 67054- 8317 08 Apr, 2017 [facility] [id number] [place] [address] 83950- 8593 07 Apr, 2017 Unspecified episodic mood disorder F39 ; Combined drug dependence excluding opioids, 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 ; Anxiety F41.9 ; Other psychoactive substance dependence, uncomplicated F19.20 and Other disorder of impulse control F63.89 [facility] [id number] [place] [address] 78805- 7526 Mar, Unspecified episodic mood disorder F39 [facility] [id number] [place] [address] 09022- 8216 Mar, Gastroesophageal reflux disease, esophagitis presence not specified K21.9 [facility] [address] 51543- 8210 Mar, Arthritis M19.90 and Unspecified episodic mood disorder F39 [facility] [id number] [place] [address] 03011- 3756 Feb, [facility] [id number] [place] [address] 79356- 4506 Feb, [facility] [id number] [place] [address] 13847- 6476 Feb, [facility] [id number] [place] [address] 72017- 4048 Feb, Arthritis M19.90 [facility] [id number] [place] [address] 78837- 2521 Feb, Non-pressure chronic ulcer of right calf, 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 ; Unspecified episodic mood disorder F39 and Left hip pain M25.552 [facility] [id number] [place] [address] 12841- 0597 Feb, [facility] [id number] [place] [address] 28622- 2546 Feb, [facility] [id number] [place] [address] 66199- 2286 Jan, Arthritis M19.90 [facility] [id number] [place] [address] 00969- 5777 Jan, Left hip pain M25.552 and Non-pressure chronic ulcer of right calf, 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 [facility] [address] [address]- 7161 Jan, Chronic hepatitis C without hepatic coma B18.2 [facility] [id number] [place] [address] 92995- 9310 Jan, Encounter for immunization Z23 ; Venous insufficiency ( chronic) (peripheral) I87.2 ; Non-pressure chronic ulcer of unspecified calf limited to breakdown of skin L97.201 and Gastroesophageal reflux disease, esophagitis presence not specified K21.9 [facility] [id number] [place] [address] 08340- 5181 Jan, [facility] [id number] [place] [address] 29261- 4410 Jan, Chronic hepatitis C without hepatic coma B18.2 and Encounter for immunization Z23 [facility] [id number] [place] [address] 39558- 9999 Jan, Arthritis M19.90 [facility] [id number] [place] [address] 04528- 3886 Jan, [facility] [id number] [place] [address] 41501- 9521 Dec, [facility] [id number] [place] [address] 57429- 3250 Dec, Unspecified episodic mood disorder F39 [facility] [id number] [place] [address] 42751- 1116 Dec, Arthritis M19.90 [facility] [id number] [place] [address] 94673- 3446 Dec, Arthritis M19.90 [facility] [id number] [place] [address] 39293- 8688 Nov, [facility] [address], [place] [address]- 1296 Nov, [facility] [id number] [place] [address] 51782- 8856 Nov, Other psychoactive substance dependence, uncomplicated F19.20 ; 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, 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 and Chronic hepatitis C without hepatic coma B18.2 [facility] [id number] [place] [address] 76298- 0031 Nov, Arthritis M19.90 [facility] [id number] [place] [address] 37087 -9859 Oct, Partial thickness burn of abdomen, initial encounter T21.22XA [facility] [id number] [place] [address] 13402- 3591 Oct, [facility] [id number] [place] [address] 90504- 7714 Sep, Arthritis M19.90 [facility] [id number] [place] [address] 81796- 7678 Sep, [facility] [id number] [place] [address] 65982- 7285 Sep, [facility] [id number] [place] [address] 08295- 7017 Sep, Unspecified episodic mood disorder F39 ; Chronic hepatitis C without hepatic coma B18.2 and Left hip pain M25.552 [facility] [id number] [place] [address] 59452- 8911 Sep, Arthritis M19.90 and Left hip pain M25.552 [facility] [id number] [place] [address] 02358- 4505 Aug, [facility] [id number] [place] [address] 92339- 0871 Aug, [facility] [id number] [place] [address] 43881- 4970 Aug, Chronic hepatitis C without hepatic coma B18.2 [facility] [id number] [place] [address] 73293- 6759 Aug, [facility] [id number] [place] [address] 29633- 3018 Aug, Chronic hepatitis C without hepatic coma B18.2 [facility] [id number] [place] [address] 41336- 8597 Aug, 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, 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 [facility] [id number] [place] [address] 43659- 0449 Aug, [facility] [id number] [place] [address] 24362- 3501 Aug, Chronic hepatitis C without hepatic coma B18.2 and Hypertension I10 [facility] [id number] [place] [address] 34516- 1535 Jul, [facility] [id number] [place] [address] 31452- 9094 June, [facility] [id number] [place] [address] 38593- 4604 Apr, Fibromyalgia M79.7 ; Left hip pain M25.552 and Decubitus ulcer of sacral region, stage 1 L89.151 [facility] [id number] [place] [address] 40318- 0085 Apr, [facility] [id number] [place] [address] 85440- 5513 Apr, [facility] [id number] [place] [address] 75923- 7804 Feb, [facility] [id number] [place] [address] 43934- 0882 Dec, Anxiety F41.9 ; Combined drug dependence excluding opioids, 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 and Unspecified episodic mood disorder F39 [facility] [id number] [place] [address] 75322- 8218 Dec, [facility] [address] [address]- 5195 Nov, [facility] [id number] [place] [address] 49680- 6436 Nov, [facility] [id number] [place] [address] 14292- 2914 Nov, Other disorder of impulse control F63.89 and Anxiety F41.9 [facility] [id number] [place] [address] 20952- 3114 Oct, [facility] [id number] [place] [address] 26111 -7359 Oct, Open wound of left thigh, initial encounter S71.102A [facility] [id number] [place] [address] 48803- 2862 Oct, [facility] [id number] [place] [address] 81542- 1682 Sep, Unspecified episodic mood disorder F39 ; Other disorder of impulse control 312.39 ; Combined drug dependence excluding opioids, 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 and Anxiety F41.9 [facility] [id number] [place] [address] 51654- 7868 Sep, Other disorder of impulse control 312.39 ; Combined drug dependence excluding opioids, 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 ; Anxiety F41.9 and Unspecified episodic mood disorder F39 [facility] [id number] [place] [address] 69677- 5834 Sep, Other chronic pain G89.29 [facility] [id number] [place] [address] 95377- 2812 Sep, [facility] [id number] [place] [address] 30655- 3393 Sep, [facility] [address], [place] [address]- 3491 Aug, [facility] [address] [address]- 2048 Aug, [facility] [id number] [place] [address] 52805- 0912 Aug, [facility] [id number] [place] [address] 91050- 6838 Jul, [facility] [id number] [place] [address] 36128- 2780 Jul, [facility] [id number] [place] [address] 90510- 2726 Jul, [facility] [id number] [place] [address] 48663- 0637 Jul, Arthritis M19.90 ; Chronic hepatitis C without hepatic coma B18.2 and Left hip pain M25.552 [facility] [id number] [place] [address] 97340- 4403 Jul, Left knee pain M25.562 [facility] [id number] [place] [address] 24128- 7056 Jul, Combined drug dependence excluding opioids, 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 ; Anxiety F41.9 ; Other disorder of impulse control 312.39 and Unspecified episodic mood disorder F39 [facility] [address] [address]- 8896 Jul, Left knee pain M25.562 [facility] [id number] [place] [address] 31922- 1539 Jul, Left knee pain M25.562 and Left hip pain M25.552 [facility] [id number] [place] [address] 15819- 2416 Jul, [facility] [id number] [place] [address] 61921- 7415 June, [facility] [id number] [place] [address] 37837- 4272 June, Combinations of drug dependence excluding opioid type drug, unspecified abuse 304.80 ; Other disorder of impulse control 312.39 ; Unspecified episodic mood disorder F39 and Anxiety F41.9 [facility] [id number] [place] [address] 23919- 3441 June, Other fatigue R53.83 ; Headache R51 and Left knee pain M25.562 [facility] [id number] [place] [address] 76683- 2482 June, Unspecified episodic mood disorder F39 ; Combinations of drug dependence excluding opioid type drug, unspecified abuse 304.80 ; Other disorder of impulse control 312.39 and Anxiety F41.9 [facility] [id number] [place] [address] 65482- 1363 June, Anxiety F41.9 [facility] [id number] [place] [address] 83493- 1245 June, Pain in left knee M25.562 [facility] [id number] [place] [address] 49808- 8799 June, Anxiety F41.9 and Combinations of drug dependence excluding opioid type drug, unspecified abuse 304.80 [facility] [id number] [place] [address] 45918- 6827 June, Unspecified episodic mood disorder 296.90 ; Combinations of drug dependence excluding opioid type drug, unspecified abuse 304.80 and Other disorder of impulse control 312.39 [facility] [id number] [place] [address] 80837- 3129 June, Anxiety F41.9 and Unspecified episodic mood disorder 296.90 [facility] [id number] [place] [address] 40238- 2008 May, Arthritis M19.90 [facility] [id number] [place] [address] 38604- 6134 May, Arthritis M19.90 [facility] [id number] [place] [address] 94227- 6819 May, Anxiety F41.9 ; Combinations of drug dependence excluding opioid type drug, unspecified abuse 304.80 and Other disorder of impulse control 312.39 [facility] [address] [address]- 1821 18 May, 2015 Left knee pain M25.562 [facility] [id number] [place] [address] 28217- 5336 14 May, 2015 Arthritis M19.90 [facility] [id number] [place] [address] 24504- 8218 May, [facility] [id number] [place] [address] 26173- 8968 May, Anxiety F41.9 ; Unspecified episodic mood disorder 296.90 ; Combinations of drug dependence excluding opioid type drug, unspecified abuse 304.80 and Other disorder of impulse control 312.39 [facility] [id number] [place] [address] 88103- 3888 May, Left knee pain M25.562 [facility] [id number] [place] [address] 39205- 2522 May, Left knee pain M25.562 ; Combinations of drug dependence excluding opioid type drug, unspecified abuse 304.80 ; Other disorder of impulse control 312.39 ; Fibromyalgia M79.7 ; Hypertension I10 ; Unspecified episodic mood disorder 296.90 and Left hip pain M25.552 [facility] [id number] [place] [address] 43292- 4540 May, Unspecified episodic mood disorder 296.90 ; Other disorder of impulse control 312.39 ; Combinations of drug dependence excluding opioid type drug, unspecified abuse 304.80 and Anxiety F41.9 [facility] [id number] [place] [address] 04206- 1707 May, Left knee pain M25.562 ; Combinations of drug dependence excluding opioid type drug, unspecified abuse 304.80 ; Other disorder of impulse control 312.39 ; Fibromyalgia M79.7 ; Hypertension I10 ; Unspecified episodic mood disorder 296.90 and Left hip pain M25.552 [facility] [id number] [place] [address] 07005- 2577 May, Anxiety F41.9 ; Unspecified episodic mood disorder 296.90 ; Other disorder of impulse control 312.39 and Combinations of drug dependence excluding opioid type drug, unspecified abuse 304.80 [facility] [id number] [place] [address] 91078- 8767 30 Apr, 2015 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 and 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, implants and grafts, initial encounter T84.82XA [facility] [id number] [place] [address] 76976- 3855 Apr, Anxiety F41.9 ; Unspecified episodic mood disorder 296.90 ; Combinations of drug dependence excluding opioid type drug, unspecified abuse 304.80 and Other disorder of impulse control 312.39 [facility] [id number] [place] [address] 57261- 5360 Apr, Arthritis M19.90 [facility] [id number] [place] [address] 57505- 2382 Apr, Anxiety F41.9 ; Unspecified episodic mood disorder 296.90 ; Combinations of drug dependence excluding opioid type drug, unspecified abuse 304.80 and Other disorder of impulse control 312.39 [facility] [id number] [place] [address] 63448- 2991 17 Apr, 2015 Arthritis M19.90 [facility] [id number] [place] [address] 63615- 7593 15 Apr, 2015 [facility] [id number] [place] [address] 75281- 7822 Apr, [facility] [id number] [place] [address] 83504- 0191 14 Apr, 2015 Unspecified episodic mood disorder 296.90 ; Combinations of drug dependence excluding opioid type drug, unspecified abuse 304.80 ; Other disorder of impulse control 312.39 and Anxiety F41.9 [facility] [address] [address] -3226 Apr, Left knee pain M25.562 [facility] [id number] [place] [address] 46450- 6447 Apr, [facility] [id number] [place] [address] 94273- 6009 Mar, Unspecified episodic mood disorder 296.90 ; Anxiety F41.9 ; Other disorder of impulse control 312.39 and Combinations of drug dependence excluding opioid type drug, unspecified abuse 304.80 [facility] [id number] [place] [address] 006912- 2159 Mar, Hyperpigmentation L81.9 [facility] [id number] [place] [address] 15968- 5259 Mar, Arthritis M19.90 and Anxiety F41.9 [facility] [id number] [place] [address] 72218- 4343 Mar, Unspecified episodic mood disorder F39 ; Combined drug dependence excluding opioids, 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 ; Other disorder of impulse control F63.89 and Anxiety F41.9 [facility] [id number] [place] [address] 19883- 6743 12 Mar, 2015 Well woman exam Z01.419 ; Other fatigue R53.83 ; Hot flashes N95.1 ; Depression, unspecified depression type F32.9 and Body mass index (BMI) of 23.0-23.9 in adult Z68.23 [facility] [id number] [place] [address] 08660- 8979 11 Mar, 2015 Unspecified episodic mood disorder 296.90 ; Other disorder of impulse control 312.39 and Anxiety F41.9 [facility] [id number] [place] [id number] 11 Mar, 2015 Well woman exam Z01.419 [...] of breast Z12.39 and Limited mobility Z74.[address] [address] Mar, [place] [address] [address] Mar, [address] [address] Mar, [place] [address] [address] Mar, Other specified complication of internal orthopedic prosthetic devices, implants and grafts, initial encounter T84.89XA ; Fibromyalgia M79.7 ; Hypertension I10 ; Anemia D64.9 ; Insomnia G47.00 ; Anxiety F41.9 ; Arthritis M19.90 and Migraine G43.[address] [address]- [address]886 Mar, [place] [address] [address]- 7993 Feb, [address] [address]- 3789 Feb, Arthritis M19.90 and Anxiety F41.9 [place] [address] [address]19- 5804 Feb, [place] [address] 56013- 9513 Feb, [facility] [address], [place] [address] 29[address] Feb, [facility] [address] [place] [id number] [place] [address] 39182- 4493 Feb, [facility] [id number] [place] [address] 76211- 1375 Feb, Anxiety F41.9 [facility] [id number] [place] [address] 65648- 1121 15 Feb, 2015 [facility] [id number] [place] [address] 33539- 6703 Feb, [facility] [address] [place] [address] [id number] [place] [address] 81829- 9039 Feb, 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 and Fibromyalgia M79.7 [facility] [address] [place] [address] [id number] [place] [address] 84842- 9164 Feb, [facility] [address] [id number] [place] [address] 77044- 3376 Jan, [facility] [address] [id number] [place] [address] 92558- 7698 Jan, [facility] [address], [place] [address] 6304 Jan, [facility] [address], [place] [address] 0826 24 Jan, 2015 [facility] [address], [place] [address]- 2851 16 Jan, 2015 [facility] [id number] [place] [address] 24522- 1968 08 Jan, 2015 [facility] [address], [place] [address]- 4691 07 Jan, 2015 [facility] [address] [id number] [place] [address] 56349- 6536 Jan, [facility] [address], [place] [address]- 0489 Dec, [facility] [address] [id number] [place] [address] 69963- 8966 Dec, Left knee pain M25.562 [facility] [address] [id number] [place] [address] 054181- 4610 Dec, Left knee pain M25.562 [facility] [address] [address] [id number] [place] [address] 87903- 4358 Dec, Fibromyalgia M79.7 ; Hypertension I10 and Arthritis M19.90 [facility] [address] [id number] [place] [address] 91838- 2958 Dec, [facility] [address] [id number] [place] [address] 47104- 8510 Dec, [facility] [address] [id number] [place] [address] 07157- 5575 Dec, [facility] [address] [place] [address] [id number] [place] [address] 09636- 3165 Dec, [facility] [address] [id number] [address]- 2321 Nov, [facility] [address], [place] [address]- 4172 Nov, [facility] [address], [place] [address]- 0269 Nov, [facility] [address], [place] [address]- 0864 Nov, Hypertension I10 [facility] [address], [place] [address]- 3517 Oct, [facility] [address], [place] [address]- 2997 Oct, [facility] [address] [place] [address]- 4803 Oct, [facility] [address] [id number] [place] [address]- 9388 Oct, [facility] [place] [facility] [address] [id number] [place] [address]- 9785 Oct, [facility] [address] [id number] [place] [address]- 8403 Sep, [facility] [place] [facility] [address] [id number] [place] [address]- 2125 Sep, [facility] [address] [id number], [place] [address]- 2742 Sep, Hip pain associated with recalled total hip arthroplasty hardware 996.77 [facility] [place] [facility] [address] [id number] [place] [address]- 3984 Sep, [facility] [address] [id number], [place] [address]- 0816 Sep, [facility] [address] [id number], [place] [address]- 4438 Sep, [facility] [address] [facility] [id number] [address]- 8940 Aug, [facility] [address] [facility] [id number], [place] [address]- 0702 Jul, [facility] [place] [facility] [address] [id number], [place] [address]- 2872 June, [facility] [place] [facility] [address] [id number] [place] [address]- 7069 June, [facility] [place] [facility] [address] [id number], [place] [address]- 7281 June, [facility] [place] [facility] [address] [facility] [id number], [place] [address]- 5160 June, [facility] [place] [facility] [address] [id number] [place] [address]- 1315 June, [facility] [place] [facility] [address] [id number] [place] [address]- 9643 June, [facility] [place] [facility] [address] [id number] [place] [address]- 7369 May, [facility] [place] [facility] [address] [id number] [place] [address]- 2157 May, [facility] [place] [facility] [address] [id number] [place] [address]- 2911 May, [facility] [place] [facility] [address] [id number] [place] [address]- 8256 Apr, [facility] [place] [facility] [address] [id number] [place] [address]- 1985 Apr, [facility] [place] [facility] [address] [id number] [place] [address]- 7439 Apr, [facility] [place] [facility] [address] [id number] [place] [address]- 3545 Apr, [facility] [place] [facility] [address] [id number] [place] [address]- 7574 Apr, [facility] [place] [facility] [address] [id number] [place] [address]- 7107 Apr, [facility] [place] [facility] [address] [id number] [place] [address]- 3531 Apr, [facility] [place] [facility] [address] [id number] [place] [address]- 5952 Apr, [facility] [place] [facility] [address] [id number] [place] [address]- 7915 10 Apr, 2014 [facility] [place] [facility] [address] [id number] [place] [address]- 0626 05 Apr, 2014 [facility] [place] [facility] [address] [id number] [place] [address]- 6710 05 Apr, 2014 [facility] [place] [facility] [address] [id number] [place] [address]- 9357 Mar, 2014 [facility] [place] [facility] [address] [id number] [place] [address]- 2608 Mar, 2014 [facility] [place] [facility] [address] [id number] [place] [address]- 2764 16 Mar, 2014 [facility] [place] [facility] [address] [id number] [place] [address]- 9295 Mar, 2014 [facility] [place] [facility] [address] [id number] [place] [address]- 8185 Mar, [facility] [place] [facility] [address] [id number] [place] [address]- 6939 Mar, [facility] [place] [facility] [address] [facility] [id number] [place] [address]- 5684 Feb, [facility] [place] [facility] [address] [id number] [place] [address]- 1220 Feb, [facility] [place] [facility] [address] [id number] [place] [address]- 5743 Feb, [facility] [place] [facility] [address] [facility] [id number] [place] [address]- 3482 Feb, [facility] [place] [facility] [address] [facility] [id number] [place] [address]- 2145 Jan, [facility] [place] [facility] [address] [id number], [place] [address]- 4523 Jan, [facility] [place] [facility] [address] [id number] [place] [address]- 4371 Jan, [facility] [place] [facility] [address] [id number] [place] [address]- 2336 Jan, [facility] [place] [facility] [address] [id number], [place] [address]- 4826 Dec, [facility] [place] [facility] [address] [id number], [place] [address]- 2512 Dec, [facility] [place] [facility] [address] [id number] [place] [address]- 0152 Dec, [facility] [place] [facility] [address] [id number] [place] [address]- 3017 Dec, [facility] [place] [facility] [address] [id number] [place] [address]- 2499 Dec, [facility] [place] [facility] [address] [id number] [place] [address]- 9676 Dec, [facility] [place] [facility] [address] [id number] [place] [address]- 3721 Dec, [facility] [place] [facility] [address] [id number] [place] [address]- 6625 Dec, [facility] [place] [facility] [address] [facility] [id number] [place] [address]- 2774 Dec, [facility] [place] [facility] [address] [facility] [id number] [place] [address]- 4756 Dec, [facility] [place] [facility] [address] [facility] [id number] [place] [address]- 2659 Dec, [facility] [place] [facility] [address] [facility] [id number] [place] [address]- 1566 Nov, [facility] [place] [facility] [address] [id number], [place] [address]- 0600 Nov, [facility] [place] [facility] [address] [id number], [place] [address]- 5160 28 Nov, 2013 [facility] [place] [facility] [address] [id number] [place] [address]- 8889 17 Nov, 2013 [facility] [place] [facility] [address] [facility] [id number] [place] [address]- 2712 17 Nov, 2013 [facility] [place] [facility] [address] [facility] [id number], [place] [address]- 6735 15 Nov, 2013 [facility] [place] [facility] [address] [id number] [place] [address]- 9131 15 Nov, 2013 [facility] [place] [facility] [address] [id number] [place] [address]- 1333 15 Nov, 2013 [facility] [place] [facility] [address] [id number] [place] [address]- 4768 15 Nov, 2013 [facility] [place] [facility] [address] [id number] [place] [address]- 1834 14 Nov, 2013 [facility] [place] [facility] [address] [id number] [place] [address]- 4438 14 Nov, 2013 [facility] [place] [facility] [address] [id number] [place] [address]- 0353 14 Nov, 2013 [facility] [place] [facility] [address] [id number] [place] [address]- 6193 14 Nov, 2013 [facility] [place] [facility] [address] [id number] [place] [address]- 3655 13 Nov, 2013 [facility] [place] [facility] [address] [id number] [place] [address]- 7556 13 Nov, 2013 [facility] [place] [facility] [address] [id number] [place] [address]- 5312 11 Nov, 2013 [facility] [place] [facility] [address] [id number] [place] [address]- 4581 11 Nov, 2013 [facility] [place] [facility] [address] [id number] [place] [address]- 2258 07 Nov, 2013 [facility] [place] [facility] [address] [id number] [place] [address]- 0746 07 Nov, 2013 [facility] [place] [facility] [address] [id number] [place] [address]- 4273 07 Nov, 2013 [facility] [place] [facility] [address] [id number] [place] [address]- 9266 07 Nov, 2013 [facility] [place] [facility] [address] [id number] [place] [address]- 0157 30 Oct, 2013 [facility] [place] [facility] [address] [id number] [place] [address]- 4019 30 Oct, 2013 [facility] [place] [facility] [address] [id number] [place] [address]- 4878 26 Oct, 2013 [facility] [place] [facility] [address] [id number] [place] [address]- 4633 26 Oct, 2013 [facility] [place] [facility] [address] [id number] [place] [address]- 8615 22 Oct, 2013 [facility] [place] [facility] [address] [id number] [place] [address]- 1234 22 Oct, 2013 [facility] [place] [facility] [address] [id number] [place] [address]- 4897 18 Oct, 2013 [facility] [place] [facility] [address] [id number] [place] [address]- 5983 18 Oct, 2013 [facility] [place] [facility] [address] [id number] [place] [address]- 3197 18 Oct, 2013 [facility] [place] [facility] [address] [id number] [place] [address]- 7445 18 Oct, 2013 [facility] [place] [facility] [address] [id number] [place] [address]- 5147 12 Oct, 2013 [facility] [place] [facility] [address] [id number] [place] [address]- 4233 Oct, 2013 [facility] [place] [facility] [address] [id number], [place] [address]- 3402 Oct, 2013 [facility] [place] [facility] [address] [id number] [place] [address]- 1325 Oct, [facility] [place] [facility] [address] [id number] [place] [address]- 9525 Sep, [facility] [place] [facility] [address] [id number] [place] [address]- 6491 Sep, [facility] [place] [facility] [address] [id number] [place] [address]- 9177 Sep, [facility] [place] [facility] [address] [id number] [place] [address]- 9632 Sep, [facility] [place] [facility] [address] [id number] [place] [address]- 6571 Sep, [facility] [place] [facility] [address] [id number] [place] [address]- 3015 Sep, [facility] [place] [facility] [address] [id number] [place] [address]- 6024 Sep, [facility] [place] [facility] [address] [id number] [place] [address]- 6563 Sep, [facility] [place] [facility] [address] [id number] [place] [address]- 0215 Sep, [facility] [place] [facility] [address] [id number] [place] [address]- 1968 Sep, [facility] [place] [facility] [address] [id number] [place] [address]- 6360 Sep, [facility] [place] [facility] [address] [id number] [place] [address]- 4645 Sep, [facility] [place] [facility] [address] [id number] [place] [address]- 7855 Sep, [facility] [place] [facility] [address] [id number] [place] [address]- 1327 Sep, [facility] [place] [facility] [address] [id number] [place] [address]- 9296 Sep, [facility] [place] [facility] [address] [id number] [place] [address]- 6818 Sep, [facility] [place] [facility] [address] [id number] [place] [address]- 2804 Sep, [facility] [place] [facility] [address] [id number] [place] [address]- 3261 Sep, [facility] [place] [facility] [address] [id number] [place] [address]- 7819 Aug, [facility] [place] [facility] [address] [id number] [place] [address]- 2189 Aug, [facility] [place] [facility] [address] [id number] [place] [address]- 6726 Aug, [facility] [place] [facility] [address] [id number] [place] [address]- 4161 Aug, [facility] [place] [facility] [address] [id number] [place] [address]- 5542 Aug, [facility] [place] [facility] [address] [id number] [place] [address]- 5092 Aug, [facility] [place] [facility] [address] [id number] [place] [address]- 6740 Jul, [facility] [place] [facility] [address] [id number] [place] [address]- 7856 Jul, [facility] [place] [facility] [address] [id number] [place] [address]- 3940 Jul, [facility] [place] [facility] [address] [id number] [place] [address]- 1185 Jul, [facility] [place] [facility] [address] [id number] [place] [address]- 3106 June, [facility] [place] [facility] [address] [id number] [place] [address]- 6003 June, [facility] [place] [facility] [address] [id number] [place] [address]- 6268 June, [facility] [place] [facility] [address] [id number] [place] [address]- 2165 June, [facility] [place] [facility] [address] [id number] [place] [address]- 8407 June, [facility] [place] [facility] [address] [id number] [place] [address]- 2516 June, [facility] [place] [facility] [address] [id number] [place]228 June, [facility] [place] [facility] [address] [id number] [place] [address]- 6844 May, [facility] [place] [facility] [address] [id number] [place] [address]- 9882 May, [facility] [place] [facility] [address] [id number] [place] [address]- 4464 May, [facility] [place] [facility] [address] [id number] [place] [address]- 2031 May, [facility] [place] [facility] [address] [id number] [place] [address]- 2062 May, [facility] [place] [facility] [address] [id number] [place] [address]- 6086 May, [facility] [place] [facility] [address] [id number] [place] [address]- 8829 Apr, [facility] [place] [facility] [address] [id number] [place] [address]- 5646 31 Apr, 2013 [facility] [place] [facility] [address] [id number] [place] [address]- 8976 Apr, [facility] [place] [facility] [address] [id number] [place] [address]- 0220 28 Apr, 2013 [facility] [place] [facility] [address] [id number] [place] [address]- 8853 14 Apr, 2013 [facility] [place] [facility] [address] [id number] [place] [address]- 2760 14 Apr, 2013 [facility] [place] [facility] [address] [id number] [place] [address]- 7907 Apr, [facility] [place] [facility] [address] [id number] [place] [address]- 5992 Apr, [facility] [place] [facility] [address] [id number] [place] [address]- 7015 10 Apr, 2013 [facility] [address] [id number] [place] [address]- 6462 10 Apr, 2013 [facility] [place] [facility] [address] [id number] [place] [address]- 8240 Apr, [facility] [place] [facility] [address] [id number] [place] [address]- 3211 Apr, [facility] [place] [facility] [address] [id number] [place] [address]- 2809 Apr, [facility] [place] [facility] [address] [id number] [place] [address]- 1632 Apr, [facility] [place] [facility] [address] [id number] [place] [address]- 2570 Mar, [facility] [place] [facility] [address] [id number] [place] [address]- 7315 Mar, [facility] [place] [facility] [address] [id number] [place] [address]- 4415 Mar, [facility] [place] [facility] [address] [id number] [place] [address]- 1948 Feb, [facility] [place] [facility] [address] [id number] [place] [address]- 1560 Feb, [facility] [place] [facility] [address] [id number] [place] [address] Feb, [facility] [place] [facility] [address] [id number] [place] [address] Feb, [facility] [place] [facility] [address] [id number] [place] [address] Feb, [facility] [place] [facility] [address] [id number] [place] [address] Feb, [facility] [place] [facility] [address] [id number] [place] [address] Feb, [facility] [address] [id number] [place] [address] Feb, [facility] [place] [facility] [address] [id number] [place] [address] Feb, [facility] [address] [id number] [place] [address] Feb, [facility] [address] [id number] [place] [address] Jan, [facility] [address] [id number] [place] [address]- [address] Jan, [facility] [address] [id number] [place] [address] Jan, [facility] [address] [id number] [place] [address] Jan, [facility] [address] [id number] [place] [address] Jan, [facility] [address] [id number] [place] [address] Jan, [facility] [place] [facility] [address] [id number] [place] [address]- [address] Jan, [facility] [place] [facility] [address] [id number] [place] [address] Jan, [facility] [place] [facility] [address] [id number], [place] [address] Jan, [facility] [place] [facility] [address] [id number] [place] [address] Jan, [facility] [place] [facility] [address] [id number] [place] [address]- [address] Jan, [facility] [place] [facility] [address] [id number] [place] [address]- [address] Jan, [facility] [place] [facility] [address] [id number] [place] [address]- [address] 16 Jan, 2013 [facility] [address] [id number] [place] [address] Jan, [facility] [place] [facility] [address] [id number] [place] [address]- [address] Jan, [facility] [address] [facility] [id number] [place] [address]- 1516 Jan, [facility] [place] [facility] [address] [id number] [place] [address] Jan, [facility] [address] [id number] [place] [address]- [address] Jan, [facility] [place] [facility] [address] [id number] [place] [address]- [address] Jan, [facility] [address] [id number] [place] [address]- [address] Jan, [facility] [place] [facility] [address] [id number] [place] [address] Jan, [facility] [place] [facility] [address] [id number] [place] [address] Dec, [facility] [place] [facility] [address] [facility] [id number] [place] [address]- 96[address] Dec, [facility] [place] [facility] [address] [id number] [place] [address] Dec, [facility] [place] [facility] [address] [id number] [place] [address] Dec, [facility] [place] [facility] [address] [id number] [place] [address]- 1577 Dec, [facility] [place] [facility] [address] [id number] [place] [address] Dec, [facility] [place] [facility] [address] [facility] [id number] [place] [address]- [address] Dec, [facility] [place] [facility] [address] [id number] [place] [address]- [address] Dec, [facility] [place] [facility] [address] [id number] [place] [address] Dec, [facility] [place] [facility] [address] [id number] [place] [address]- [address] Dec, [facility] [place] [facility] [address] [id number] [place] [address]- [address] Nov, [facility] [place] [facility] [address] [id number] [place] [address] Nov, [facility] [place] [facility] [address] [id number] [place] [address]- 99[address] Nov, [facility] [place] [facility] [address] [id number] [place] [address]- [address] Nov, [facility] [place] [facility] [address] [id number] [place] [address]- [address] Nov, [facility] [place] [facility] [address] [id number] [place] [address]- [address]29 Nov, [facility] [place] [facility] [address] [id number] [place] [address]- 59[address] Nov, [facility] [place] [facility] [address] [id number] [place] [address]- [address] Nov, [facility] [place] [facility] [address] [id number] [place] [address]- [address] Nov, [facility] [place] [facility] [address] [id number] [place] [address]- 96[address] Nov, [facility] [place] [facility] [address] [id number] [place] [address] Oct, [facility] [place] [facility] [address] [id number] [place] [address]- [address]61 Oct, [facility] [place] [facility] [address] [id number] [place] [address]- [address] Oct, [facility] [place] [facility] [address] [id number] [place] [address]- [address] Oct, [facility] [place] [facility] [address] [id number] [place] [address]- [address] Oct, [facility] [place] [facility] [address] [id number] [place] [address] Sep, [facility] [place] [facility] [address] [id number] [place] [address]- [address] Sep, [facility] [place] [facility] [address] [id number] [place] [address] Aug, [facility] [place] [facility] [address] [id number] [place] [address]- [address]38 Aug, [facility] [place] [facility] [address] [id number] [place] [address]- [address] Aug, [facility] [place] [facility] [address] [id number] [place] [address]- [address]653 Aug, [facility] [place] [facility] [address] [id number] [place] [address]- 24[address] Aug, [facility] [place] [facility] [address] [id number] [place] [address]- 9681 Aug, [facility] [place] [facility] [address] [id number] [place] [address]- [address] Aug, [facility] [place] [facility] [address] [id number] [place] [address]- 74[address] Jul, [facility] [place] [facility] [address] [id number] [place] [address]- [address] Jul, [facility] [place] [facility] [address] [id number] [place] [address]- 39[address] June, [facility] [place] [facility] [address] [id number] [place] [address]- [address] June, [facility] [place] [facility] [address] [id number] [place] [address]- [address]288 June, [facility] [address] [id number] [place] [address] June, [facility] [address] [id number] [place] [address] June, [facility] [address] [id number] [place] [address] June, [facility] [address] [id number] [place] [address] June, [facility] [address] [id number] [place] [address] June, [facility] [address] [id number] [place] [address] 30[address] June, [facility] [address] [id number] [place] [address] 6[address] June, [facility] [address] [id number] [place] [address] 6[address] June, [facility] [address] [id number] [place] [address] 8090 May, [facility] [address] [id number] [place] [address] 54[address] May, [facility] [address] [id number] [place] [address]145 May, [facility] [address] [id number] [place] [address] 7315 May, [facility] [address] [id number] [place] [address]- 8[address] Apr, [facility] [address] [id number] [place] [address]- 2009 Apr, [facility] [address] [id number] [place] [address]- 9865 Apr, [facility] [address] [id number] [place] [address] 134[address] Mar, [facility] [place] [facility] [address] [id number] [place] [address]- 4696 Mar, [facility] [place] [facility] [address] [id number] [place] [address]- 2297 Feb, [facility] [place] [facility] [address] [id number] [place] [address]- 3258 Feb, [facility] [address] [id number] [place] [address]- 3528 Feb, [facility] [place] [facility] [address] [id number] [place] [address]- 6287 Feb, [facility] [place] [facility] [address] [id number] [place] [address]- 3138 Feb, [facility] [address] [id number] [place] [address]- 4556 Feb, [facility] [place] [facility] [address] [id number] [place] [address]- 2669 Feb, [facility] [address] [id number], [place] [address] Jan, [facility] [place] [facility] [address] [id number] [place] [address]- 0057 Jan, [facility] [place] [facility] [address] [id number], [place] [address] 28 Jan, 2012 [facility] [place] [facility] [address] [id number] [place] [address] Jan, [facility] [place] [facility] [address] [id number] [place] [address]- 2896 Jan, [facility] [place] [facility] [address] [id number] [place] [address]- 6956 Jan, [facility] [place] [facility] [address] [id number], [place] [address]- 114[address] Jan, [facility] [place] [facility] [address] [id number] [place] [address]- 5169 Jan, [facility] [place] [facility] [address] [facility] [id number] [place] [address]- 6286 Jan, [facility] [place] [facility] [address] [facility] [id number] [place] [address]- 3366 Jan, [facility] [place] [facility] [address] [id number] [place] [address]- 3867 Jan, [facility] [place] [facility] [id number] [place] [address], [place] [address]- [address] Dec, [facility] [place] [facility] [address] [facility] [id number] [place] [address]- 6519 Dec, [facility] [place] [facility] [id number] [place] [address]- 65[address] Dec, [facility] [place] [facility] [address] [facility] [id number] [place] [address]- 5293 Dec, [facility] [place] [facility] [address] [id number] [place] [address] 52[address] Nov, [facility] [place] [facility] [address] [id number] [place] [address]- 6570 Nov, [facility] [place] [facility] [address] [facility] [id number], [place] [address] 17[address] 08 Nov, 2011 [facility] [place] [facility] [address] [facility] [id number], [place] [address]21 27 Oct, 2011 [facility] [place] [facility] [address] [id number] [place] [address]- 2880 24 Oct, 2011 [facility] [place] [facility] [address] [facility] [id number] [place] [address]- 0848 21 Oct, 2011 [facility] [place] [facility] [address] [id number], [place] [address] 8973 10 Oct, 2011 [facility] [place] [facility] [address] [id number] [place] [address]- 5005 07 Oct, 2011 [facility] [place] [facility] [address] [id number] [facility] [place] [address] 04 Oct, 2011 [facility] [place] [facility] [address] [id number] [place] [address] 2546 Oct, [facility] [place] [facility] [address] [id number] [place] [address] 2546 Sep, [facility] [place] [facility] [address] [id number] [place] [address] 2549 Sep, [facility] [place] [facility] [address] [id number] [place] [address]- 9186 Sep, [facility] [place] [facility] [address] [id number] [place] [address]- 1028 Sep, [facility] [place] [facility] [address] [id number] [place] [address]- 4117 Sep, [facility] [place] [facility] [address] [id number] [place] [address]- 6732 Aug, [facility] [place] [facility] [address] [id number] [place] [address]- 2091 Aug, [facility] [place] [facility] [address] [id number] [place] [address]- 6023 Aug, [facility] [place] [facility] [address] [id number] [place] [address]- 4510 16 Aug, 2011 [facility] [place] [facility] [address] [id number] [place] [address] 2542 Aug, [facility] [place] [facility] [address] [id number] [place] [address] 2546 Aug, [facility] [place] [facility] [address] [id number] [place] [address]- 2546 Aug, [facility] [place] [facility] [address] [id number] [place] [address]- 6302 Jul, [facility] [place] [facility] [address] [id number] [place] [address]- 0064 Jul, [facility] [place] [facility] [address] [id number] [place] [address]- 1879 Jul, [facility] [place] [facility] [address] [id number] [place] [address]- 0653 Jul, [facility] [place] [facility] [address] [id number] [place] [address]- 1829 Jul, [facility] [place] [facility] [address] [id number] [place] [address]- 1892 Jul, [facility] [place] [facility] [address] [id number] [place] [address]- 1840 07 Jul, 2011 [facility] [place] [facility] [address] [id number] [place] [address]- 3193 06 Jul, 2011 [facility] [place] [facility] [address] [id number] [place] [address]- 4933 05 Jul, 2011 [facility] [place] [facility] [address] [id number] [place] [address]- 9190 June, [facility] [place] [facility] [address] [id number] [place] [address]- 6187 June, [facility] [place] [facility] [address] [id number] [place] [address]- 5732 June, [facility] [place] [facility] [address] [id number] [place] [address]- 2744 June, [facility] [place] [facility] [address] [id number] [place] [address]- 1522 June, [facility] [place] [facility] [address] [id number] [place] [address]- 8155 June, [facility] [place] [facility] [address] [id number] [place] [address]- 0666 June, [facility] [place] [facility] [address] [id number] [place] [address]- 3919 June, [facility] [address] [id number] [place] [address]- 9776 May, [facility] [place] [facility] [address] [id number] [place] [address]- 4636 May, [facility] [address] [id number] [place] [address]- 8076 May, [facility] [place] [facility] [address] [id number] [place] [address]- 2394 May, [facility] [place] [facility] [address] [id number] [place] [address]- 2588 May, [facility] [place] [facility] [address] [id number] [place] [address]- 4836 May, [facility] [address] [id number] [place] [address]- 0715 May, [facility] [place] [facility] [address] [id number] [place] [address]- 2700 Apr, [facility] [place] [facility] [address] [id number] [place] [address]- 7792 Apr, [facility] [place] [facility] [address] [id number] [place] [address]- 5129 Apr, [facility] [place] [facility] [address] [id number] [place] [address]- 6466 Apr, [facility] [place] [facility] [address] [id number] [place] [address]- 0552 Apr, [facility] [place] [facility] [address] [id number] [place] [address]- 3338 Apr, [facility] [place] [facility] [address] [id number] [place] [address]- 6496 Apr, [facility] [place] [facility] [address] [id number] [place] [address]- 9863 Mar, [facility] [place] [facility] [address] [id number] [place] [address]- 6935 Mar, [facility] [place] [facility] [address] [id number] [place] [address]- 3206 Mar, [facility] [place] [facility] [address] [id number] [place] [address]- 3896 Mar, [facility] [place] [facility] [address] [id number] [place] [address]- 2439 Mar, [facility] [place] [facility] [address] [id number] [place] [address]- 0778 Mar, [facility] [place] [facility] [address] [id number] [place] [address]- 1106 Mar, [facility] [place] [facility] [address] [id number] [place] [address]- 6894 Feb, [facility] [place] [facility] [address] [id number] [place] [address]- 6829 Feb, [facility] [place] [facility] [address] [id number] [place] [address]- 6041 Feb, [facility] [place] [facility] [address] [id number] [place] [address]- 1625 Feb, [facility] [place] [facility] [address] [id number], [place] [address]- 7461 Feb, [facility] [place] [facility] [address] [id number], [place] [address]- 2936 Feb, [facility] [place] [facility] [address] [id number] [place] [address]- 7994 Feb, [facility] [place] [facility] [address] [id number] [place] [address]- 6050 Feb, [facility] [place] [facility] [address] [id number] [place] [address]- 3930 Feb, [facility] [place] [facility] [address] [id number] [place] [address]- 3529 03 Feb, 2011 [facility] [address] [id number] [place] [address]- 9209 27 Jan, 2011 [facility] [place] [facility] [address] [id number] [place] [address]- 6326 Jan, [facility] [place] [facility] [address] [id number] [place] [address]- 8186 Jan, [facility] [place] [facility] [address] [id number] [place] [address]- 5133 Jan, [facility] [place] [facility] [address] [id number] [place] [address]- 9359 Jan, [facility] [place] [facility] [address] [id number] [place] [address]- 2144 Jan, [facility] [address] [id number] [place] [address]- 5935 15 Jan, 2011 [facility] [place] [facility] [address] [id number] [place] [address]- 8866 15 Jan, 2011 [facility] [place] [facility] [address] [id number] [place] [address]- 8715 Jan, [facility] [place] [facility] [address] [id number] [place] [address]- 8881 Jan, [facility] [place] [facility] [address] [id number] [place] [address]- 5163 Jan, [facility] [place] [facility] [address] [id number] [place] [address]- 8163 Dec, [facility] [place] [facility] [address] [id number] [place] [address]- 8973 17 Dec, 2010 [facility] [place] [facility] [address] [id number] [place] [address]- 9618 17 Dec, 2010 [facility] [place] [facility] [address] [id number] [place] [address]- 9393 16 Dec, 2010 [facility] [place] [facility] [address] [id number] [place] [address]- 1460 14 Dec, 2010 [facility] [place] [facility] [address] [id number] [place] [address]- 9257 09 Dec, 2010 [facility] [place] [facility] [address] [id number] [place] [address]- 8322 08 Dec, 2010 [facility] [place] [facility] [address] [id number] [place] [address]- 9494 07 Dec, 2010 [facility] [place] [facility] [address] [id number] [place] [address]- 3448 Dec, [facility] [place] [facility] [address] [id number] [place] [address]- 6453 Nov, [facility] [place] [facility] [address] [id number] [place] [address]- 9942 Nov, [facility] [place] [facility] [address] [id number] [place] [address]- 8176 Nov, [facility] [place] [facility] [address] [id number] [place] [address]- 0984 24 Nov, 2010 [facility] [place] [facility] [address] [id number] [place] [address]- 5912 24 Nov, 2010 [facility] [place] [facility] [address] [id number] [place] [address]- 1725 Nov, [facility] [place] [facility] [address] [id number] [place] [address]- 5704 Aug, [facility] [place] [facility] [address] [id number] [place] [address]- 9865 14 Feb, 2010 [facility] [place] [facility] [address] [id number] [place] [address]- 9912 14 Jan, 2010 [facility] [place] [facility] [address] [id number] [place] [address]- 5569 06 Jan, 2010 [facility] [place] [facility] [address] [id number], [place] [address]- 9766 Jan, [facility] [address] [id number], [place] [address]- 2253 Jan, [facility] [address]005[address], [place] [address]- 2546 Jan, [facility] [id number], [place] [address]- 7328 Dec, [facility] [id number], [place] [address]- 1186 Dec, [facility] [id number], [place] [address]- 6046 Dec, [facility] [id number], [place] [address]- 4407 Dec, [facility] [id number], [place] [address]- 4793 Nov, [facility] [id number], [place] [address]- 0895 Nov, [facility] [address] [id number], [place] [address]- 0482 Nov, IMMUNIZATIONS No Known Immunizations SOCIAL HISTORY [...]
--- OUTSIDE RECORDS SUMMARY | 2018-01-13 21:34 | XMS REPORT ---
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 Active 23720703 Problem Unspecified episodic mood disorder F39 Active 75490344 Problem Hypertension I10 Active 65307923 Problem Venous insufficiency (chronic) (peripheral) I87.2 Active 076084043 Problem Gastroesophageal reflux disease, esophagitis presence not specified K21.9 Active 123208315 Problem Other chronic pain G89.29 Active 12891185 Problem Chronic hepatitis C without hepatic coma B18.2 Active 883146422 Problem Other psychoactive substance dependence, uncomplicated F19.20 Active 7112767 Problem 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, 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 790842979 ALLERGIES No Information ENCOUNTERS Encounter Location Date Diagnosis [facility] [id number] [address] 03 May, 2017 Other chronic pain G89.29 ; Left hip pain M25.552 ; Hypertension I10 ; 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9 ; Other psychoactive substance dependence, uncomplicated F19.20 and 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 [facility] [id number] [place] [address] 70966- 7553 Apr, [facility] [id number] [place] [address] 80667- 1907 Apr, Arthritis M19.90 and Unspecified episodic mood disorder F39 [facility] [id number] [place] [address] 19486- 2239 Apr, Unspecified episodic mood disorder F39 [facility] [id number] [place] [address] 25286- 2190 Apr, [facility] [id number] [place] [address] 48852- 3714 Apr, [facility] [id number] [place] [address] 83539- 5074 Apr, Unspecified episodic mood disorder F39 ; Combined drug dependence excluding opioids, 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 ; Anxiety F41.9 ; Other psychoactive substance dependence, uncomplicated F19.20 and 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 [facility] [id number] [place] [address] 20590- 9319 Mar, Unspecified episodic mood disorder F39 [facility] [id number] [place] [address] 75478- 1986 Mar, Gastroesophageal reflux disease, esophagitis presence not specified K21.9 [facility] [id number] [place] [address] 31836- 1532 Mar, Arthritis M19.90 and Unspecified episodic mood disorder F39 [facility] [id number] [place] [address] 45040- 3479 Feb, [facility] [id number] [place] [address] 20818- 0559 Feb, [facility] [facility] [id number] [place] [address] 13742- 5032 Feb, [facility] [id number] [place] [address] 30290- 8188 Feb, Arthritis M19.90 [facility] [id number] [place] [address] 67920- 0019 Feb, Non-pressure chronic ulcer of right calf, 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 ; Unspecified episodic mood disorder F39 and Left hip pain M25.552 [facility] [id number] [place] [address] 03036- 8084 Feb, [facility] [id number] [place] [address] 51919- 8571 Feb, [facility] [id number] [place] [address] 20966- 6779 Jan, Arthritis M19.90 [facility] [id number] [place] [address] 15214- 0052 Jan, Left hip pain M25.552 and Non-pressure chronic ulcer of right calf, 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 [facility] [id number] [place] [address] 79491- 7961 Jan, Chronic hepatitis C without hepatic coma B18.2 [facility] [id number] [place] [address] 86181- 5324 Jan, Encounter for immunization Z23 ; Venous insufficiency ( chronic) (peripheral) I87.2 ; Non-pressure chronic ulcer of unspecified calf limited to breakdown of skin L97.201 and Gastroesophageal reflux disease, esophagitis presence not specified K21.9 [facility] [id number] [place] [address] 02982- 3042 Jan, [facility] [address] [address] Jan, Chronic hepatitis C without hepatic coma B18.2 and Encounter for immunization Z23 [facility] [id number] [place] [address] 87065- 9579 Jan, Arthritis M19.90 [facility] [id number] [place] [address] 60357- 8741 Jan, [facility] [id number] [place] [address] 00023- 3609 Dec, [facility] [id number] [place] [address] 63250- 6301 Dec, Unspecified episodic mood disorder F39 [facility] [id number] [place] [address] 85251- 0729 Dec, Arthritis M19.90 [facility] [id number] [place] [address] 32456- 1824 Dec, Arthritis M19.90 [facility] [id number] [place] [address] 21672- 1293 Nov, [facility] [id number] [place] [address] 29593- 3626 Nov, [facility] [address] [address] Nov, Other psychoactive substance dependence, uncomplicated F19.20 ; 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, 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 and Chronic hepatitis C without hepatic coma B18.2 [facility] [id number] [place] [address] 26215- 1859 Nov, Arthritis M19.90 [facility] [id number] [place] [address] 60259 -5309 Oct, Partial thickness burn of abdomen, initial encounter T21.22XA [facility] [id number] [place] [address] 75810- 9691 Oct, [facility] [address] [address]- 9042 Sep, Arthritis M19.90 [facility] [id number] [place] [address] 18878- 0512 Sep, [facility] [id number] [place] [address] 03597- 8498 Sep, [facility] [id number] [place] [address] 98630- 7212 Sep, Unspecified episodic mood disorder F39 ; Chronic hepatitis C without hepatic coma B18.2 and Left hip pain M25.552 [facility] [id number] [place] [address] 49254- 2373 Sep, Arthritis M19.90 and Left hip pain M25.552 [facility] [id number] [place] [address] 43394- 1450 Aug, [facility] [id number] [place] [address] 56251- 7870 Aug, [facility] [id number] [place] [address] 11344- 4481 Aug, Chronic hepatitis C without hepatic coma B18.2 [facility] [address] [address] Aug, [facility] [id number] [place] [address] 12698- 8794 Aug, Chronic hepatitis C without hepatic coma B18.2 [facility] [id number] [place] [address] 79870- 0411 Aug, 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, 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 [facility] [address] [address] 5[address] Aug, [facility] [id number] [place] [address] 87283- 9685 Aug, Chronic hepatitis C without hepatic coma B18.2 and Hypertension I10 [facility] [id number] [place] [address] 61089- 6945 Jul, [facility] [id number] [place] [address] 50137- 6326 June, [facility] [address] 41469- 7829 Apr, Fibromyalgia M79.7 ; Left hip pain M25.552 and Decubitus ulcer of sacral region, stage 1 L89.151 [facility] [address] 42742- 4511 Apr, [facility] [id number] [place] [address] 92246- 0241 Apr, [facility] [address] 95440- 6201 Feb, [facility] [id number] [place] [address] 81125- 4564 Dec, Anxiety F41.9 ; Combined drug dependence excluding opioids, 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 and Unspecified episodic mood disorder F39 [facility] [id number] [place] [address] 34777- 9466 Dec, [facility] [id number] [place] [address] 11184- 2672 Nov, [facility] [id number] [place] [address] 82669- 5570 Nov, [facility] [id number] [place] [address] 75353- 6501 10 Nov, 2015 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 and Anxiety F41.9 [facility] [id number] [place] [address] 00687- 0932 Oct, [facility] [address] 31443 -2649 14 Oct, 2015 Open wound of left thigh, initial encounter S71.102A [facility] [id number] [place] [address] 81373- 0967 Oct, [facility] [place] [id number] [place] [address] 96651- 3876 Sep, Unspecified episodic mood disorder F39 ; Other disorder of impulse control 312.39 ; Combined drug dependence excluding opioids, 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 and Anxiety F41.9 [facility] [id number] [place] [address] 78802- 1389 Sep, Other disorder of impulse control 312.39 ; Combined drug dependence excluding opioids, 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 ; Anxiety F41.9 and Unspecified episodic mood disorder F39 [facility] [id number] [place] [address] 01364- 8483 Sep, Other chronic pain G89.29 [facility] [id number] [place] [address] 14057- 6604 Sep, [facility] [id number] [place] [address] 67074- 6452 Sep, [facility] [id number] [place] [address] 04846- 5804 Aug, [facility] [address] [address]- 1666 Aug, [facility] [id number] [place] [address] 15137- 1696 Aug, [facility] [id number] [place] [address] 30345 2546 Jul, [facility] [id number] [place] [address] 29285- 3396 Jul, [facility] [id number] [place] [address] 57332- 8024 Jul, [facility] [place] [id number] [place] [address] 81508- 1149 17 Jul, 2015 Arthritis M19.90 ; Chronic hepatitis C without hepatic coma B18.2 and Left hip pain M25.552 [facility] [id number] [place] [address] 64756- 6558 Jul, Left knee pain M25.562 [facility] [id number] [place] [address] 45543- 7094 Jul, Combined drug dependence excluding opioids, 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 ; Anxiety F41.9 ; Other disorder of impulse control 312.39 and Unspecified episodic mood disorder F39 [facility] [id number] [place] [address] 24259- 9839 Jul, Left knee pain M25.562 [facility] [id number] [place] [address] 18958- 4555 Jul, Left knee pain M25.562 and Left hip pain M25.552 [facility] [id number] [place] [address] 88851- 0206 Jul, [facility] [id number] [place] [address] 22416- 6033 June, [facility] [id number] [place] [address] 02025- 5928 June, Combinations of drug dependence excluding opioid type drug, unspecified abuse 304.80 ; Other disorder of impulse control 312.39 ; Unspecified episodic mood disorder F39 and Anxiety F41.9 [facility] [address] [place] [address] 78566- 8705 June, Other fatigue R53.83 ; Headache R51 and Left knee pain M25.562 [facility] [id number] [place], [place] [address]- 9456 June, Unspecified episodic mood disorder F39 ; Combinations of drug dependence excluding opioid type drug, unspecified abuse 304.80 ; Other disorder of impulse control 312.39 and Anxiety F41.9 [facility] [id number] [place] [address] 58500- 1295 June, Anxiety F41.9 [facility] [id number] [place] [address] 66450- 5643 June, Pain in left knee M25.562 [facility] [id number] [place] [address] 40138- 4307 June, Anxiety F41.9 and Combinations of drug dependence excluding opioid type drug, unspecified abuse 304.80 [facility] [id number] [place] [address] 02717- 7219 June, Unspecified episodic mood disorder 296.90 ; Combinations of drug dependence excluding opioid type drug, unspecified abuse 304.80 and Other disorder of impulse control 312.39 [facility] [id number] [place] [address] 36616- 9426 June, Anxiety F41.9 and Unspecified episodic mood disorder 296.90 [facility] [id number] [place] [address] 12357- 1223 May, Arthritis M19.90 [facility] [id number] [place] [address] 67530- 6026 May, Arthritis M19.90 [facility] [id number] [place] [address] 37793- 9273 May, Anxiety F41.9 ; Combinations of drug dependence excluding opioid type drug, unspecified abuse 304.80 and Other disorder of impulse control 312.39 [facility] [id number] [place] [address] 36177- 3297 May, Left knee pain M25.562 [facility] [id number] [place] [address] 40787- 8414 May, Arthritis M19.90 [facility] [id number] [place] [address] 32452- 1546 May, [facility] [id number] [place] [address] 00533- 4710 May, Anxiety F41.9 ; Unspecified episodic mood disorder 296.90 ; Combinations of drug dependence excluding opioid type drug, unspecified abuse 304.80 and Other disorder of impulse control 312.39 [facility] [address] [place] [address] 82152- 0266 May, Left knee pain M25.562 [facility] [id number] [place] [address] 82078- 3980 May, Left knee pain M25.562 ; Combinations of drug dependence excluding opioid type drug, unspecified abuse 304.80 ; Other disorder of impulse control 312.39 ; Fibromyalgia M79.7 ; Hypertension I10 ; Unspecified episodic mood disorder 296.90 and Left hip pain M25.552 [facility] [id number] [place] [address] 08061- 4129 May, Unspecified episodic mood disorder 296.90 ; Other disorder of impulse control 312.39 ; Combinations of drug dependence excluding opioid type drug, unspecified abuse 304.80 and Anxiety F41.9 [facility] [id number] [place] [address] 35387- 1419 May, Left knee pain M25.562 ; Combinations of drug dependence excluding opioid type drug, unspecified abuse 304.80 ; Other disorder of impulse control 312.39 ; Fibromyalgia M79.7 ; Hypertension I10 ; Unspecified episodic mood disorder 296.90 and Left hip pain M25.552 [facility] [address] [place] [address] 40932- 9519 May, Anxiety F41.9 ; Unspecified episodic mood disorder 296.90 ; Other disorder of impulse control 312.39 and Combinations of drug dependence excluding opioid type drug, unspecified abuse 304.80 [facility] [id number] [place] [address] 45797- 0748 Apr, 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 and 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, implants and grafts, initial encounter T84.82XA [facility] [id number] [place] [address] 47914- 8539 Apr, Anxiety F41.9 ; Unspecified episodic mood disorder 296.90 ; Combinations of drug dependence excluding opioid type drug, unspecified abuse 304.80 and Other disorder of impulse control 312.39 [facility] [address] [place] [address] 92657- 9331 Apr, Arthritis M19.90 [facility] [id number] [place] [address] 02878- 2631 Apr, Anxiety F41.9 ; Unspecified episodic mood disorder 296.90 ; Combinations of drug dependence excluding opioid type drug, unspecified abuse 304.80 and Other disorder of impulse control 312.39 [facility] [id number] [place] [address] 31704- 5366 Apr, Arthritis M19.90 [facility] [id number] [place] [address] 45192- 5299 Apr, [facility] [id number] [place] [address] 41717- 0711 Apr, [facility] [id number] [place] [address] 13378- 8236 Apr, Unspecified episodic mood disorder 296.90 ; Combinations of drug dependence excluding opioid type drug, unspecified abuse 304.80 ; Other disorder of impulse control 312.39 and Anxiety F41.9 [facility] [address] [place] [address] 86686 -7711 Apr, Left knee pain M25.562 [facility] [id number] [place] [address] 78912- 6955 Apr, [facility] [id number] [place] [address] 81007- 8124 Mar, Unspecified episodic mood disorder 296.90 ; Anxiety F41.9 ; Other disorder of impulse control 312.39 and Combinations of drug dependence excluding opioid type drug, unspecified abuse 304.80 [facility] [id number] [place] [address] 86212- 1607 Mar, Hyperpigmentation L81.9 [facility] [id number] [place] [address] 34553- 5224 Mar, Arthritis M19.90 and Anxiety F41.9 [place] [id number] [place] [address] 82641- 2522 22 Mar, 2015 Unspecified episodic mood disorder F39 ; Combined drug dependence excluding opioids, 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 ; Other disorder of impulse control 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 and Anxiety F41.9 [place] [id number] [place] [address] 54298- 1269 12 Mar, 2015 Well woman exam Z01.419 ; Other fatigue R53.83 ; Hot flashes N95.1 ; Depression, unspecified depression type F32.9 and Body mass index (BMI) of 23.0-23.9 in adult Z68.[address] 87473- 6976 11 Mar, 2015 Unspecified episodic mood disorder 296.90 ; Other disorder of impulse control 312.39 and Anxiety F41.9 [place] [id number] [place] [address] 69953- 0056 11 Mar, 2015 Well woman exam Z01.419 [...] of breast Z12.39 and Limited mobility Z74.09 [place] [id number] [place] [address] 45535- 3424 Mar, [facility] [id number] [place] [address] 57056- 8898 Mar, [facility] [address] 84010- 3905 Mar, [facility] [id number] [place] [address] 43757- 6349 Mar, Other specified complication of internal orthopedic prosthetic devices, implants and grafts, initial encounter T84.89XA ; Fibromyalgia M79.7 ; Hypertension I10 ; Anemia D64.9 ; Insomnia G47.00 ; Anxiety F41.9 ; Arthritis M19.90 and Migraine G43.909 [facility] [id number] [place] [address] 75519- 2624 Mar, [facility] [id number] [place] [address] 07234- 1277 Feb, [facility] [address] 67312- 9352 Feb, Arthritis M19.90 and Anxiety F41.9 [facility] [address] 12986- 5363 Feb, [facility] [id number] [place] [address] [phone] Feb, [facility] [id number] [place] [address] [phone] Feb, [facility] [id number] [place] [address] [phone] Feb, [facility] [id number] [place] [address] [phone] Feb, Anxiety F41.9 [facility] [id number] [place] [address] [phone] Feb, [facility] [id number] [place] [address] [phone] Feb, [facility] [id number] [address]- 3369 Feb, 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 and Fibromyalgia M79.7 [facility] [id number] [address] 4556 Feb, [facility] [id number] [place] [address] 33926- 9640 Jan, [facility] [id number] [place] [address] 21782- 8758 Jan, [facility] [id number] [place] [address] 60418- 7039 Jan, [facility] [id number] [address]- 4833 Jan, [facility] [id number] [place] [address] 93748- 2739 Jan, [facility] [id number] [address]- 1544 Jan, [facility] [id number] [place] [address] 59845- 9248 Jan, [facility] [id number] [address]- 9183 Jan, [facility] [id number] [place] [address] 71968- 9656 Dec, [facility] [id number] [address]- 2035 Dec, Left knee pain M25.562 [facility] [id number] [place] [address] 68220- 9676 Dec, Left knee pain M25.562 [facility] [id number] [address]- 9823 16 Dec, 2014 Fibromyalgia M79.7 ; Hypertension I10 and Arthritis M19.90 [facility] [address] [id number] [place] [address]- 2332 Dec, [facility] [place] [facility] [address] [id number] [place] [address]- 3389 Dec, [facility] [place] [facility] [address] [facility] [id number] [place] [address]- 9693 Dec, [facility] [place] [facility] [id number] [place] [address], [place] [address]- 1554 Dec, [facility] [place] [facility] [address] [id number] [place] [address]- 4575 Nov, [facility] [place] [facility] [address] [id number] [place] [address], [place] [address]- 2753 Nov, [facility] [place] [facility] [id number] [place] [address], [place] [address]- 1477 Nov, [facility] [place] [facility] [address] [facility] [id number] [place] [address] 64082- 7834 Nov, Hypertension I10 [facility] [place] [facility] [address] [facility] [id number] [place] [address]- 1060 23 Oct, 2014 [facility] [place] [facility] [id number] [address]- 0474 17 Oct, 2014 [facility] [place] [facility] [address] [facility] [id number] [address]- 4954 Oct, 2014 [facility] [place] [facility] [address] [facility] [id number] [place] [address]- 2569 04 Sep, 2014 [facility] [place] [facility] [address] [facility] [id number] [address]- 5143 03 Oct, 2014 [facility] [place] [facility] [address] [facility] [id number] [address]- 6943 Sep, [facility] [place] [facility] [address] [facility] [id number] [place] [address]- 3217 Sep, [facility] [place] [facility] [address] [facility] [id number] [place] [address]- 0089 Sep, Hip pain associated with recalled total hip arthroplasty hardware 996.77 [facility] [address] [id number] [place] [address]- 6136 Sep, [facility] [place] [facility] [address] [id number] [place] [address]- 4714 Sep, [facility] [place] [facility] [address] [id number] [place] [address]- 1095 Sep, [facility] [place] [facility] [address] [id number] [place] [address]- 4369 Aug, [facility] [address] [id number] [place] [address] Jul, [facility] [address] [facility] [id number] [place] [address]- 1650 June, [facility] [address] [facility] [id number] [place] [address]- 4459 June, [facility] [address] [id number] [place] [address]- 7246 June, [facility] [address] [facility] [id number] [place] [address]- 5514 June, [facility] [address] [facility] [id number] [place] [address]- 7693 June, [facility] [address] [facility] [id number] [address]- 9181 June, [facility] [place] [facility] [address] [id number] [place] 2256 May, [facility] [place] [facility] [address] [id number] [place] [address]37 May, [facility] [place] [facility] [address] [facility] [id number] [place] [address]- 0820 May, [facility] [place] [facility] [address] [id number] [address]- 3724 Apr, 2014 [facility] [place] [facility] [address] [id number] [place] [address]- 4298 30 Apr, 2014 [facility] [place] [facility] [address] [id number] [place] [address]- 2869 Apr, [facility] [place] [facility] [address] [id number] [place] [address]- 9006 Apr, [facility] [place] [facility] [address] [id number] [place] [address]- 8343 Apr, [facility] [place] [facility] [address] [id number] [place] [address]- 4999 Apr, [facility] [place] [facility] [address] [id number] [place] [address]- 7578 Apr, [facility] [place] [facility] [address] [id number] [place] [address]- 7546 Apr, [facility] [place] [facility] [address] [id number] [place] [address]- 3520 Apr, [facility] [place] [facility] [address] [id number] [place] [address]- 1164 Apr, [facility] [place] [facility] [address] [id number] [place] [address]- 5896 05 Apr, 2014 [facility] [place] [facility] [address] [id number] [place] [address]- 1714 Mar, 2014 [facility] [place] [facility] [address] [id number] [place] [address]- 6805 Mar, 2014 [facility] [place] [facility] [address] [id number] [place] [address]- 2112 16 Mar, 2014 [facility] [place] [facility] [address] [id number] [place] [address]- 5251 16 Mar, 2014 [facility] [place] [facility] [address] [id number] [place] [address]- 9140 10 Mar, 2014 [facility] [place] [facility] [address] [id number] [place] [address]- 1276 10 Mar, 2014 [facility] [place] [facility] [address] [id number] [place] [address]- 4753 Feb, [facility] [place] [facility] [address] [id number] [place] [address]- 8357 Feb, [facility] [place] [facility] [address] [id number] [place] [address]- 4878 Feb, [facility] [place] [facility] [address] [id number] [place] [address]- 4292 Feb, [facility] [place] [facility] [address] [id number] [place] [address]- 2399 Jan, [facility] [place] [facility] [address] [id number] [place] [address]- 1261 Jan, [facility] [place] [facility] [address] [id number] [place] [address]- 8702 Jan, [facility] [place] [facility] [address] [id number] [place] [address]- 0278 Jan, [facility] [place] [facility] [address] [id number] [place] [address]- 7410 Dec, [facility] [place] [facility] [address] [id number] [place] [address]- 8394 Dec, [facility] [place] [facility] [address] [id number] [place] [address]- 1982 Dec, [facility] [place] [facility] [address] [id number] [place] [address]- 3665 Dec, [facility] [place] [facility] [address] [id number] [place] [address]- 1725 Dec, [facility] [place] [facility] [address] [id number] [place] [address]- 5398 Dec, [facility] [place] [facility] [address] [id number] [place] [address]- 6932 Dec, [facility] [place] [facility] [address] [id number] [place] [address]- 5493 Dec, [facility] [place] [facility] [address] [id number] [place] [address]- 9650 10 Dec, 2013 [facility] [place] [facility] [address] [id number] [place] [address]- 9209 Dec, [facility] [place] [facility] [address] [id number] [place] [address]- 4093 07 Dec, 2013 [facility] [place] [facility] [address] [id number] [place] [address]- 7680 31 Nov, 2013 [facility] [place] [facility] [address] [id number] [place] [address]- 7899 28 Nov, 2013 [facility] [place] [facility] [address] [id number] [place] [address]- 4520 28 Nov, 2013 [facility] [place] [facility] [address] [id number] [place] [address]- 2309 17 Nov, 2013 [facility] [place] [facility] [address] [id number] [place] [address]- 0007 17 Nov, 2013 [facility] [place] [facility] [address] [id number] [address]- 7661 15 Nov, 2013 [facility] [place] [facility] [address] [id number] [address]- 7279 15 Nov, 2013 [facility] [place] [facility] [address] [id number] [address]- 8155 15 Nov, 2013 [facility] [place] [facility] [address] [id number] [place] [address]- 9224 15 Nov, 2013 [facility] [place] [facility] [address] [id number] [address]- 9376 14 Nov, 2013 [facility] [place] [facility] [address] [id number] [address]- 3575 14 Nov, 2013 [facility] [place] [facility] [address] [id number] [place] [address]- 7123 14 Nov, 2013 [facility] [place] [facility] [address] [id number] [place] [address]- 5705 14 Nov, 2013 [facility] [place] [facility] [address] [id number] [place] [address]- 4232 13 Nov, 2013 [facility] [place] [facility] [address] [id number] [place] [address]- 7669 13 Nov, 2013 [facility] [place] [facility] [address] [id number] [place] [address]- 1527 11 Nov, 2013 [facility] [place] [facility] [address] [id number] [place] [address]- 7266 11 Nov, 2013 [facility] [place] [facility] [address] [id number] [place] [address]- 1622 07 Nov, 2013 [facility] [place] [facility] [address] [id number] [place] [address]- 7229 07 Nov, 2013 [facility] [place] [facility] [address] [id number] [place] [address]- 9770 07 Nov, 2013 [facility] [place] [facility] [address] [id number] [place] [address]- 3162 07 Nov, 2013 [facility] [place] [facility] [address] [id number] [place] [address]- 9276 30 Oct, 2013 [facility] [place] [facility] [address] [id number] [place] [address]- 8897 30 Sep, 2013 [facility] [place] [facility] [address] [id number] [place] [address]- 2545 26 Sep, 2013 [facility] [place] [facility] [address] [id number] [place] [address]- 5336 26 Sep, 2013 [facility] [place] [facility] [address] [id number] [place] [address]- 3993 22 Sep, 2013 [facility] [place] [facility] [address] [id number] [place] [address]- 9465 22 Oct, 2013 [facility] [place] [facility] [address] [id number] [place] [address]- 5565 18 Oct, 2013 [facility] [place] [facility] [address] [id number] [place] [address]- 7808 Oct, 2013 [facility] [place] [facility] [address] [id number] [place] [address]- 5249 Oct, 2013 [facility] [place] [facility] [address] [id number] [place] [address]- 1185 Oct, 2013 [facility] [place] [facility] [address] [id number] [place] [address]- 7754 Oct, [facility] [place] [facility] [address] [id number] [place] [address]- 2421 Oct, [facility] [place] [facility] [address] [id number] [place] [address]- 4235 Oct, [facility] [place] [facility] [address] [id number] [place] [address]- 8227 Oct, [facility] [place] [facility] [address] [id number] [place] [address]- 7430 Sep, [facility] [place] [facility] [address] [id number] [place] [address]- 5050 Sep, [facility] [place] [facility] [address] [id number] [place] [address]- 1183 Sep, [facility] [place] [facility] [address] [id number] [place] [address]- 8872 Sep, [facility] [place] [facility] [address] [id number] [place] [address]- 5700 Sep, [facility] [place] [facility] [address] [id number] [place] [address]- 5735 Sep, [facility] [place] [facility] [address] [id number] [place] [address]- 3804 Sep, [facility] [place] [facility] [address] [id number] [place] [address]- 2866 Sep, [facility] [place] [facility] [address] [id number] [place] [address]- 3221 Sep, [facility] [place] [facility] [address] [id number] [place] [address]- 1831 Sep, [facility] [place] [facility] [address] [id number] [place] [address]- 1838 Sep, [facility] [place] [facility] [address] [id number] [place] [address]- 8645 Sep, [facility] [place] [facility] [address] [id number] [place] [address]- 9815 Sep, [facility] [place] [facility] [address] [id number] [place] [address]- 7257 Sep, [facility] [place] [facility] [address] [id number] [place] [address]- 4102 Sep, [facility] [place] [facility] [address] [id number] [place] [address]- 8946 Sep, [facility] [place] [facility] [address] [id number] [place] [address]- 4415 Sep, [facility] [place] [facility] [address] [id number] [place] [address]- 2561 Sep, [facility] [place] [facility] [address] [id number] [place] [address]- 8693 Aug, [facility] [place] [facility] [address] [id number] [place] [address]- 0730 Aug, [facility] [place] [facility] [address] [id number] [place] [address]- 4459 Aug, [facility] [place] [facility] [address] [id number] [place] [address]- 5616 Aug, [facility] [place] [facility] [address] [id number] [place] [address]- 3546 Aug, [facility] [place] [facility] [address] [id number] [place] [address]- 0244 Aug, [facility] [address] [id number] [place] [address]- 7093 Jul, [facility] [place] [facility] [address] [id number] [place] [address]- 6108 Jul, [facility] [address] [id number] [place] [address]- 9280 Jul, [facility] [place] [facility] [address] [id number] [place] [address]- 8603 Jul, [facility] [address] [id number] [place] [address]- 3573 June, [facility] [place] [facility] [address] [id number] [place] [address]- 7673 June, [facility] [place] [facility] [address] [id number] [place] [address]- 5752 June, [facility] [address] [id number] [place] [address]- 3494 June, [facility] [place] [facility] [address] [id number] [place] [address]- 0436 June, [facility] [address] [id number] [place] [address]- 7305 June, [facility] [place] [facility] [address] [id number] [place] [address]- 6622 June, [facility] [place] [facility] [address] [id number] [place] [address]- 7909 May, [facility] [place] [facility] [address] [id number] [place] [address]- 0803 May, [facility] [place] [facility] [address] [id number] [place] [address]- 6046 May, [facility] [place] [facility] [address] [id number] [place] [address]- 3023 May, [facility] [place] [facility] [address] [id number] [place] [address]- 1423 May, [facility] [place] [facility] [address] [id number] [place] [address]- 2598 May, [facility] [place] [facility] [address] [id number] [place] [address]- 1075 31 Apr, 2013 [facility] [place] [facility] [address] [id number] [place] [address]- 7134 31 Apr, 2013 [facility] [place] [facility] [address] [id number] [place] [address]- 7821 Apr, [facility] [place] [facility] [address] [id number] [place] [address]- 2248 Apr, [facility] [place] [facility] [address] [id number] [place] [address]- 9044 14 Apr, 2013 [facility] [place] [facility] [address] [id number] [place] [address]- 5663 14 Apr, 2013 [facility] [place] [facility] [address] [id number] [place] [address]- 9085 Apr, [facility] [place] [facility] [address] [id number] [place] [address]- 0339 Apr, [facility] [place] [facility] [address] [id number] [place] [address]- 1654 10 Apr, 2013 [facility] [place] [facility] [address] [id number] [place] [address]- 7878 10 Apr, 2013 [facility] [place] [facility] [address] [id number] [place] [address]- 3016 04 Apr, 2013 [facility] [place] [facility] [address] [id number] [place] 0769 04 Apr, 2013 [facility] [place] [facility] [address] [id number] [place] [address]- 9180 03 Apr, 2013 [facility] [place] [facility] [address] [id number] [address]- 6599 Apr, [facility] [address] [id number] [place] [address]- 8341 Mar, [facility] [place] [facility] [address] [id number] [place] [address]- 8946 Mar, [facility] [place] [facility] [address] [id number] [place] [address]- 0326 Mar, [facility] [place] [facility] [address] [id number] [place] [address]- 2843 Feb, [facility] [place] [facility] [address] [id number] [place] [address]- 7242 Feb, [facility] [place] [facility] [address] [id number] [place] [address]- 8809 Feb, [facility] [place] [facility] [address] [id number] [place] [address]- 9380 Feb, [facility] [place] [facility] [address] [id number] [place] [address]- 1644 Feb, [facility] [place] [facility] [address] [id number] [place] [address]- 7731 Feb, [facility] [place] [facility] [address] [facility] [id number] [place] [address]- 4554 Feb, [facility] [place] [facility] [address] [id number] [place] [address]- 1956 Feb, [facility] [place] [facility] [address] [id number] [place] [address]- 1394 Feb, [facility] [place] [facility] [address] [id number] [place] [address]- 0360 Feb, [facility] [place] [facility] [address] [id number] [place] [address]- 5625 Jan, [facility] [place] [facility] [address] [id number] [place] [address]- 4315 Jan, [facility] [place] [facility] [address] [id number] [place] [address]- 0766 Jan, [facility] [address] [id number] [place] [address]- 4516 Jan, [facility] [address] [id number] [place] [address] Jan, [facility] [address] [id number] [place] [address] Jan, [facility] [address] [id number] [place] [address] Jan, [facility] [address] [id number] [place] [address] Jan, [facility] [address] [id number] [place] [address] Jan, [facility] [address] [id number] [place] [address] Jan, [facility] [address] [id number] [place] [address] Jan, [facility] [address] [id number] [place] [address] Jan, [facility] [address] [id number] [place] [address] 16 Jan, 2013 [facility] [address] [id number] [place] [address] Jan, [facility] [address] [id number] [place] [address] Jan, [facility] [place] [facility] [address] [id number] [place] [address] Jan, [facility] [place] [facility] [address] [id number] [place] [address] Jan, [facility] [place] [facility] [address] [id number] [place] [address] Jan, [facility] [place] [facility] [address] [id number] [place] [address] Jan, [facility] [place] [facility] [address] [id number] [address] Jan, [facility] [place] [facility] [address] [facility] [id number] [place] [address] Jan, [facility] [place] [facility] [address] [id number] [place] [address] Dec, [facility] [place] [facility] [address] [id number] [place] [address] Dec, [facility] [place] [facility] [address] [id number] [place] [address] Dec, [facility] [place] [facility] [address] [id number] [place] [address] Dec, [facility] [place] [facility] [address] [id number] [place] [address] Dec, [facility] [place] [facility] [address] [id number] [place] [address] Dec, [facility] [place] [facility] [address] [id number] [place] [address] Dec, [facility] [place] [facility] [address] [id number] [place] [address] Dec, [facility] [place] [facility] [address] [id number] [place] [address] Dec, [facility] [place] [facility] [address] [id number] [place] [address] Dec, [facility] [place] [facility] [address] [facility] [id number] [place] [address] Nov, [facility] [place] [facility] [address] [id number] [place] [address] Nov, [facility] [place] [facility] [address] [id number] [place] [address] 18 Nov, 2012 [facility] [address] [id number] [place] [address] 18 Nov, 2012 [facility] [place] [facility] [address] [id number] [place] [address] Nov, 2012 [facility] [address] [id number] [place] [address]27 11 Nov, 2012 [facility] [place] [facility] [address] [id number] [place] [address]691 Nov, 2012 [facility] [address] [id number] [place] [address]- [address] Nov, [facility] [place] [facility] [address] [id number] [place] [address] 10 Nov, 2012 [facility] [address] [id number] [place] [address] Nov, [facility] [address] [id number] [place] [address] 26 Oct, 2012 [facility] [place] [facility] [address] [id number] [place] [address]44 26 Oct, 2012 [facility] [place] [facility] [address] [id number] [place] [address]- [address]47 26 Oct, 2012 [facility] [place] [facility] [address] [id number] [place] [address] 2546 25 Oct, 2012 [facility] [place] [facility] [address] [id number] [place] [address]- [address] 06 Oct, 2012 [facility] [place] [facility] [address] [id number] [place] [address] Sep, [facility] [place] [facility] [address] [id number] [place] [address]49 Sep, [facility] [place] [facility] [address] [id number] [place] [address] Aug, [facility] [place] [facility] [address] [id number] [place] [address]- 29[address] Aug, [facility] [address] [id number] [place] [address] Aug, [facility] [address] [id number] [place] [address]- [address]498 Aug, [facility] [address] [id number] [place] [address]- 49[address] Aug, [facility] [address] [id number] [place] [address]- [address] Aug, [facility] [address] [id number] [place] [address]- 4844 Aug, [facility] [address] [id number] [place] [address] Jul, [facility] [address] [id number] [place] [address] Jul, [facility] [address] [id number] [place] [address] June, [facility] [address] [id number] [place] [address] 37[address] June, [facility] [address] [id number] [place] [address] June, [facility] [address] [id number] [place] [address]- 5826 June, [facility] [place] [facility] [address] [id number] [place] [address] June, [facility] [place] [facility] [address] [id number] [place] [address]- 6[address] June, [facility] [place] [facility] [address] [id number] [place] [address]- [address]160 June, [facility] [place] [facility] [address] [id number] [place] [address]- 3434 June, [facility] [address] [id number] [place] [address]- 9710 June, [facility] [address] [id number] [place] [address]- 8718 June, [facility] [address] [id number] [place] [address]- 4294 June, [facility] [address] [id number] [place] [address]- 7826 May, [facility] [address] [id number] [place] [address]- 1679 May, [facility] [address] [id number] [place] [address]- 9191 May, [facility] [address] [id number] [place] [address] May, [facility] [address] [id number] [place] [address] Apr, [facility] [address] [id number] [place] [address] 12[address] Apr, [facility] [address] [id number] [place] [address] Apr, [facility] [address] [id number] [place] [address] Mar, [facility] [address] [id number] [place] [address]689 Mar, [facility] [address] [id number] [place] [address] Feb, [facility] [place] [facility] [address] [id number] [place] [address] Feb, [facility] [place] [facility] [address] [id number] [place] [address]234 Feb, [facility] [place] [facility] [address] [id number] [place] [address] 8[address] 21 Feb, 2012 [facility] [place] [facility] [address] [id number] [place] [address] 3806 16 Feb, 2012 [facility] [place] [facility] [address] [id number] [place] [address]446 14 Feb, 2012 [facility] [place] [facility] [address] [id number] [place] [address] 9402 08 Feb, 2012 [facility] [place] [facility] [address] [id number] [place] [address] 7[address] 31 Jan, 2012 [facility] [place] [facility] [address] [id number] [place] [address] 7972 31 Jan, 2012 [facility] [place] [facility] [address] [id number] [place] [address] 28 Jan, 2012 [facility] [place] [facility] [address] [id number] [place] [address] 0884 17 Jan, 2012 [facility] [place] [facility] [address] [id number] [place] [address] 3127 17 Jan, 2012 [facility] [place] [facility] [address] [id number] [place] [address] 9377 Jan, [facility] [place] [facility] [address] [id number] [place] [address] 11 Jan, 2012 [facility] [place] [facility] [address] [id number] [place] [address] 4036 10 Jan, 2012 [facility] [place] [facility] [address] [id number] [place] [address] 2546 10 Jan, 2012 [facility] [place] [facility] [address] [id number] [place] [address]- 4946 03 Jan, 2012 [facility] [place] [facility] [address] [id number] [place] [address] 2546 03 Jan, 2012 [facility] [place] [facility] [address] [id number] [place] [address] Dec, [facility] [place] [facility] [address] [id number] [place] [address] 8027 Dec, [facility] [place] [facility] [address] [id number] [place] [address] 5292 Dec, [facility] [place] [facility] [address] [facility] [id number] [place] [address]13 Dec, [facility] [place] [facility] [address] [id number] [place] [address] 3409 Nov, [facility] [place] [facility] [address] [id number] [place] [address] 5047 Nov, [facility] [place] [facility] [address] [id number] [place] [address] Nov, [facility] [place] [facility] [address] [id number] [place] [address] 0899 27 Oct, 2011 [facility] [place] [facility] [address] [id number] [place] [address] 7034 24 Oct, 2011 [facility] [place] [facility] [address] [id number] [place] [address] 9778 21 Oct, 2011 [facility] [place] [facility] [address] [id number] [place] [address] 2118 10 Oct, 2011 [facility] [place] [facility] [address] [id number] [address] 1431 07 Oct, 2011 [facility] [place] [facility] [address] [id number] [place] [address] 407[address] Oct, [facility] [place] [facility] [address] [id number] [place] [address] 8977 Oct, [facility] [place] [facility] [address] [id number] [place] [address] 6[address] Sep, [facility] [place] [facility] [address] [id number] [place] [address] 8440 Sep, [facility] [place] [facility] [address] [id number] [place] [address] 9712 Sep, [facility] [place] [facility] [address] [id number] [place] [address] 3786 Sep, [facility] [place] [facility] [address] [id number] [place] [address] 4286 Sep, [facility] [place] [facility] [address] [id number] [place] [address] 3546 Aug, [facility] [place] [facility] [address] [id number] [place] [address] 5416 Aug, [facility] [place] [facility] [address] [id number] [place] [address] 9928 Aug, [facility] [place] [facility] [address] [id number] [place] [address]- 4516 16 Aug, 2011 [facility] [place] [facility] [address] [id number] [place] [address] 1718 Aug, [facility] [place] [facility] [address] [id number] [place] [address] 3349 Aug, [facility] [place] [facility] [address] [id number] [place] [address] 1057 Aug, [facility] [place] [facility] [address] [id number] [place] [address] 8534 Jul, [facility] [place] [facility] [address] [id number] [place] [address]- 0484 Jul, [facility] [place] [facility] [address] [id number] [place] [address]- 6794 Jul, [facility] [place] [facility] [address] [id number] [place] [address]- 4149 Jul, [facility] [place] [facility] [address] [id number] [place] [address]- 5864 Jul, [facility] [place] [facility] [address] [id number] [place] [address] 3029 Jul, [facility] [place] [facility] [address] [id number] [place] [address] 6404 Jul, [facility] [address] [id number] [place] [address] 8713 Jul, [facility] [address] [id number] [place] [address] 1202 Jul, [facility] [address] [id number] [place] [address] 6764 June, [facility] [address] [id number] [place] [address] 2255 June, [facility] [address] [id number] [place] [address] 4825 June, [facility] [address] [id number] [place] [address] 5643 June, [facility] [address] [id number] [place] [address]- 3089 June, [facility] [address] [id number] [place] [address]- 8589 June, [facility] [address] [id number] [place] [address]- 8559 June, [facility] [address] [id number] [place] [address]- 4651 June, [facility] [address] [id number] [place] [address]- 6467 May, [facility] [place] [facility] [address] [id number] [place] [address]- 5316 May, [facility] [place] [facility] [address] [id number] [place] [address]- 7662 May, [facility] [place] [facility] [address] [id number] [place] [address]- 1851 May, [facility] [place] [facility] [address] [id number] [place] [address]- 2546 16 May, 2011 [facility] [place] [facility] [address] [id number] [place] [address]- 3595 16 May, 2011 [facility] [place] [facility] [address] [id number] [place] [address]- 5806 02 May, 2011 [facility] [place] [facility] [address] [id number] [place] [address]- 8566 Apr, [facility] [place] [facility] [address] [id number] [place] [address]- 2043 Apr, [facility] [place] [facility] [address] [id number] [place] [address]- 8390 Apr, [facility] [place] [facility] [address] [id number] [place] [address]- 3159 Apr, [facility] [place] [facility] [address] [id number] [place] [address]- 8192 Apr, [facility] [place] [facility] [address] [id number] [place] [address]- 6264 Apr, [facility] [place] [facility] [address] [id number] [place] [address]- 7226 Apr, [facility] [place] [facility] [address] [facility] [id number] [place] [address]- 1521 Mar, [facility] [place] [facility] [address] [id number] [place] [address]- 9549 20 Mar, 2011 [facility] [place] [facility] [address] [id number] [place] [address]- 0528 14 Mar, 2011 [facility] [place] [facility] [address] [id number] [place] [address]- 3120 13 Mar, 2011 [facility] [place] [facility] [address] [id number] [place] [address]- 0048 09 Mar, 2011 [facility] [place] [facility] [address] [facility] [id number] [place] [address]- 7691 08 Mar, 2011 [facility] [place] [facility] [address] [id number] [place] [address]- 7865 Mar, [facility] [address] [id number] [place] [address]- 9144 Feb, [facility] [address] [id number] [place] [address]- 5616 Feb, [facility] [address] [id number] [place] [address]- 4801 Feb, [facility] [address] [id number] [place] [address]- 4938 Feb, [facility] [address] [id number] [place] [address]- 0468 Feb, [facility] [address] [id number] [place] [address]- 0934 Feb, [facility] [address] [id number] [place] [address]- 7732 Feb, [facility] [address] [id number] [place] [address]- 9198 Feb, [facility] [address] [id number] [place] [address]- 0483 Feb, [facility] [address] [id number] [place] [address]- 7192 Feb, [facility] [address] [id number] [place] [address]- 8442 Jan, [facility] [address] [id number] [place] [address]- 5329 Jan, [facility] [place] [facility] [address] [id number] [place] [address]- 2057 Jan, [facility] [place] [facility] [address] [id number] [place] [address]- 4630 Jan, [facility] [place] [facility] [address] [id number] [address]- 5376 Jan, [facility] [place] [facility] [address] [id number] [place] [address]- 5124 Jan, [facility] [place] [facility] [address] [id number] [place] [address]- 5724 Jan, [facility] [place] [facility] [address] [id number] [place] [address]- 8932 Jan, [facility] [place] [facility] [address] [id number] [place] [address]- 6282 Jan, [facility] [place] [facility] [address] [id number] [place] [address]- 4249 Jan, [facility] [place] [facility] [address] [id number] [place] [address]- 4791 Jan, [facility] [place] [facility] [address] [id number] [place] [address]- 1414 17 Dec, 2010 [facility] [place] [facility] [address] [id number] [place] [address]- 0113 17 Dec, 2010 [facility] [place] [facility] [address] [id number] [place] [address]- 5346 17 Dec, 2010 [facility] [place] [facility] [address] [id number] [place] [address]- 2927 16 Dec, 2010 [facility] [place] [facility] [address] [id number] [place] [address]- 7877 14 Dec, 2010 [facility] [place] [facility] [address] [id number] [place] [address]- 3775 09 Dec, 2010 [facility] [place] [facility] [address] [id number] [place] [address]- 4977 08 Dec, 2010 [facility] [place] [facility] [address] [id number] [place] [address]- 1304 07 Dec, 2010 [facility] [place] [facility] [address] [id number] [place] [address]- 0076 Dec, [facility] [place] [facility] [address] [id number] [place] [address]- 4479 Nov, [facility] [address] [id number] [place] [address]- 8526 Nov, [facility] [place] [facility] [address] [id number] [place] [address]- 3396 Nov, [facility] [address] [id number] [place] [address]- 5252 24 Nov, 2010 [facility] [place] [facility] [address] [id number] [place] [address]- 5061 24 Nov, 2010 [facility] [address] [id number] [place] [address]- 5041 Nov, [facility] [address] [id number] [place] [address]- 5895 Aug, [facility] [address] [id number] [place] [address]- 7315 14 Feb, 2010 [facility] [address] [id number] [place] [address]- 9141 14 Jan, 2010 [facility] [place] [facility] [address] [id number] [place] [address]- 8533 06 Jan, 2010 [facility] [address] [facility] [id number] [place] [address]- 7642 Jan, [facility] [place] [facility] [address] [id number] [place] [address] 254 Jan, [facility] [place] [facility] [address] [id number] [place] [address]- 5401 Jan, [facility] [place] [facility] [address] [id number] [place] [address]- 2361 Dec, [facility] [place] [facility] [address] [id number] [place] [address]- 2546 Dec, [facility] [place] [facility] [address] [id number] [place] [address]- 8748 Dec, [facility] [address] [facility] [id number] [place] Dec, [facility] [address] [id number] [address]- 0058 Nov, [facility] [address] [facility] [id number] [place] [address] Nov, [facility] [address] [facility] [id number] [place] [address] Nov, IMMUNIZATIONS No Known Immunizations SOCIAL HISTORY Never Assessed REASON FOR VISIT about referral PLAN OF CARE VITAL SIGNS MEDICATIONS No Known Medications RESULTS No Results PROCEDURES No Known [...]
--- OUTSIDE RECORDS SUMMARY | 2018-01-13 21:35 | XMS REPORT ---
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
--- OUTSIDE RECORDS SUMMARY | 2018-01-13 21:36 | XMS REPORT ---
Author WYATT Jean [facility] eClinicalWorks Address Unknown Phone Unavailable Care Team Providers Care Admissions Nurse Name Role Phone WYATT SOTO Unavailable Allergies, Adverse Reactions, Alerts Substance Reaction Event Type Propranolol HCl chest pain, headache Drug Allergy Bactrim unknown Drug Allergy Penicillins unknown Non Drug Allergy Problems Problem Type Condition Code Onset Dates Condition Status Assessment Left knee pain M25.562 Active Problem Combinations of drug dependence excluding [...] Instructions Start Date End Date Status Dosage Cyclobenzaprine HCl [facility] 61273695346 10 MG TAKE ONE TABLET BY MOUTH THREE TIMES DAILY Sumatriptan Succinate [facility] 68606266150 100 MG Orally Once a day 1 tablet as needed one time Tylenol [facility] [address]-47 500 mg Orally every 6 hrs 2 tablet as needed Ferrous Sulfate [facility] [address]-52 325 (65 Fe) MG Orally Once a day Mar 15, 2015 1 tablet Aspirin [facility] 47435090912 81 MG Orally Once a day 1 tablet Nabumetone [facility] [address]-27 500 MG Orally Twice a day May 17, 2015 June 16, 2015 1 tablet Klonopin [facility] [address]-29 1 MG Orally 3 times a day 1 tablet Multivitamins [facility] 29[address]118 Orally not defined Clonidine HCl [facility] 29506064422 0.1 MG Orally twice a day 1 tablet Furosemide [facility] 75914955393 20 MG Orally Once a day ONE TABLET Duragesic-50 [facility] [address]-28 50 MCG/HR Transdermal q 3 days Mar 06, 2015 apply 1 patch to skin every 72 hours Lyrica [facility] [address]-69 100 MG Orally Three times a day 1 capsule Melatonin [facility] [address]-90 5 MG Orally Once a day Mar 15, 2015 1 tablet at bedtime as needed with food Colace [facility] 42202192461 100 MG Orally Once a day 1 capsule as needed Promethazine HCl [facility] 72108170182 25 MG Orally every 12 hrs 1 tablet as needed Gabapentin [facility] [address]-61 300 MG Orally Three times a day Sep 12, 2014 1 capsule Oxycodone HCl [facility] [address]-38 10 MG Orally, [facility] 3 times a day Feb 14, 2015 1 capsule as needed Procedures Procedure Coding System Code Date Office Visit, Est Pt., Level 2 CPT-4 63626 May 22, 2015 Vital Signs Date/Time: May 22, 2015 Temperature 96.7 F Weight 167.5 lbs Height 68 in BMI 25.47 Index Blood Pressure Diastolic 60 mmHg Blood Pressure Systolic 112 mmHg Cardiac Monitoring Heart Rate 109 bpm Results No Known Results Summary Purpose eClinicalWorks Submission
--- OUTSIDE RECORDS SUMMARY | 2018-01-13 21:36 | XMS REPORT ---
Author Author WYATT SOTO Organization [employer] Address Unknown Phone Unavailable Care Team Providers Care Body Trimmer Name Role Phone WYATT SOTO CP Unavailable [...]
--- OUTSIDE RECORDS SUMMARY | 2018-01-13 21:36 | XMS REPORT ---
Author Author WYATT SOTO [facility] eClinicalWorks Address Unknown Phone Unavailable Care Team Providers Care Carburetor Mechanic Name Role Phone WYATT SOTO CP [...]
--- OUTSIDE RECORDS SUMMARY | 2018-01-13 21:36 | XMS REPORT ---
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 Active 90341721 Problem Unspecified episodic mood disorder F39 Active 42257432 Problem Hypertension I10 Active 19531046 Problem Venous insufficiency (chronic) (peripheral) I87.2 Active 002711323 Problem Gastroesophageal reflux disease, esophagitis presence not specified K21.9 Active 196652627 Problem Other chronic pain G89.29 Active 16605303 Problem Chronic hepatitis C without hepatic coma B18.2 Active 380353962 Problem Other psychoactive substance dependence, uncomplicated F19.20 Active 7211560 Problem 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, 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 843648772 ALLERGIES No Information ENCOUNTERS Encounter Location Date Diagnosis [facility] [id number], [place] [address] June, [facility] [id number] [place] [address] 46971- 4472 June, Unspecified episodic mood disorder F39 [facility] [address], [place] [address] 3[address] May, Unspecified episodic mood disorder F39 [facility] [id number], [place] [address] 111[address] May, [facility] [id number] [place] [address] 60144- 3035 May, Arthritis M19.90 [facility] [id number] [place] [address] 78968 -1581 May, Dysuria R30.0 ; Abscess L02.91 and Acute cystitis without hematuria N30.00 [facility] [id number] [place] [address] 10205- 3406 May, 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 ; Unspecified episodic mood disorder F39 ; Combined drug dependence excluding opioids, 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 ; Anxiety F41.9 and Other psychoactive substance dependence, uncomplicated F19.20 [facility] [id number] [place] [address] 08367- 1079 May, [facility] [id number] [place] [address] 15046- 8588 May, Other disorder of impulse control F63.89 ; Unspecified episodic mood disorder F39 ; Combined drug dependence excluding opioids, 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 ; Other psychoactive substance dependence, uncomplicated F19.20 and Anxiety F41.9 [facility] [id number] [place] [address] 04749- 5100 May, Other chronic pain G89.29 ; Left hip pain M25.552 ; Hypertension I10 ; 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, 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 and Unspecified episodic mood disorder F39 [facility] [id number] [place] [address] 08092- 0545 Apr, [facility] [id number] [place] [address] 14128 -4998 Apr, Neck pain M54.2 ; Left hip pain M25.552 and Fall, initial encounter W19.XXXA [facility] [id number] [place] [address] 44659- 0984 Apr, Unspecified episodic mood disorder F39 ; Combined drug dependence excluding opioids, 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 ; Anxiety F41.9 ; Other psychoactive substance dependence, uncomplicated F19.20 and Other disorder of impulse control F63.89 [facility] [address], [place] [address] 29[address] Apr, [facility] [id number] [place] [address] 89943- 9559 Apr, Arthritis M19.90 and Unspecified episodic mood disorder F39 [facility] [id number] [place] [address] 46200- 9672 Apr, Unspecified episodic mood disorder F39 [facility] [id number] [place] [address] 92315- 1931 Apr, [facility] [id number] [place] [address] 46556- 8819 Apr, [facility] [id number] [place] [address] 74445- 5215 Apr, Unspecified episodic mood disorder F39 ; Combined drug dependence excluding opioids, 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 ; Anxiety F41.9 ; Other psychoactive substance dependence, uncomplicated F19.20 and Other disorder of impulse control F63.89 [facility] [id number] [place] [address] 75162- 4707 Mar, Unspecified episodic mood disorder F39 [facility] [id number] [place] [address] 85370- 4445 Mar, Gastroesophageal reflux disease, esophagitis presence not specified K21.9 [facility] [id number] [place] [address] 61092- 5065 Mar, Arthritis M19.90 and Unspecified episodic mood disorder F39 [facility] [id number] [place] [address] 32221- 6043 Feb, [facility] [id number] [place] [address] 16823- 6158 Feb, [facility] [id number] [place] [address] 60769- 8619 Feb, [facility] [id number] [place] [address] 52349- 6364 Feb, Arthritis M19.90 [facility] [id number] [place] [address] 37311- 2774 Feb, Non-pressure chronic ulcer of right calf, 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 ; Unspecified episodic mood disorder F39 and Left hip pain M25.552 [facility] [id number] [place] [address] 79952- 3311 Feb, [facility] [id number] [place] [address] 98259- 2336 Feb, [facility] [id number] [place] [address] 81221- 0592 Jan, Arthritis M19.90 [facility] [id number] [place] [address] 29394- 5288 Jan, Left hip pain M25.552 and Non-pressure chronic ulcer of right calf, 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 [facility] [id number] [place] [address] 28214- 1308 Jan, Chronic hepatitis C without hepatic coma B18.2 [facility] [id number] [place] [address] 09153- 2318 Jan, Encounter for immunization Z23 ; Venous insufficiency ( chronic) (peripheral) I87.2 ; Non-pressure chronic ulcer of unspecified calf limited to breakdown of skin L97.201 and Gastroesophageal reflux disease, esophagitis presence not specified K21.9 [facility] [id number] [place] [address] 03261- 5506 Jan, [facility] [id number] [place] [address] 37099- 3009 Jan, Chronic hepatitis C without hepatic coma B18.2 and Encounter for immunization Z23 [facility] [id number] [place] [address] 32997- 7110 Jan, Arthritis M19.90 [facility] [id number] [place] [address] 54167- 6252 Jan, [facility] [id number] [place] [address] 97709- 4081 Dec, [facility] [id number] [place] [address] 18108- 0487 Dec, Unspecified episodic mood disorder F39 [facility] [id number] [place] [address] 75260- 5664 Dec, Arthritis M19.90 [facility] [id number] [place] [address] 97241- 4267 Dec, Arthritis M19.90 [facility] [id number] [place] [address] 21293- 4683 Nov, [facility] [id number] [place] [address] 20708- 9299 Nov, [facility] [id number] [place] [address] 51716- 1978 Nov, Other psychoactive substance dependence, uncomplicated F19.20 ; 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, 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 and Chronic hepatitis C without hepatic coma B18.2 [facility] [id number] [place] [address] 12403- 0237 Nov, Arthritis M19.90 [facility] [id number] [place] [address] 22554 -1073 Oct, Partial thickness burn of abdomen, initial encounter T21.22XA [facility] [id number] [place] [address] 65529- 1645 Oct, [facility] [id number] [place] [address] 95799- 5715 Sep, Arthritis M19.90 [facility] [id number] [place] [address] 63266- 8072 Sep, [facility] [address], [place] [address]- 6707 Sep, [facility] [id number] [place] [address] 92987- 2144 Sep, Unspecified episodic mood disorder F39 ; Chronic hepatitis C without hepatic coma B18.2 and Left hip pain M25.552 [facility] [id number] [place] [address] 80766- 2635 Sep, Arthritis M19.90 and Left hip pain M25.552 [facility] [id number] [place] [address] 17879- 4488 Aug, [facility] [id number] [place] [address] 36998- 5577 Aug, [facility] [id number] [place] [address] 76198- 8159 Aug, Chronic hepatitis C without hepatic coma B18.2 [facility] [address], [place] [address]- 0833 Aug, [facility] [id number] [place] [address] 69416- 6617 Aug, Chronic hepatitis C without hepatic coma B18.2 [facility] [address], [place] [address]- 1307 Aug, 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, 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 [facility] [address], [place] [address]- 3198 Aug, [facility] [id number] [place] [address] 71664- 3523 Aug, Chronic hepatitis C without hepatic coma B18.2 and Hypertension I10 [facility] [address], [place] [address]- 0100 Jul, [facility] [id number] [place] [address] 27817- 9002 June, [facility] [id number] [place] [address] 20908- 5470 Apr, Fibromyalgia M79.7 ; Left hip pain M25.552 and Decubitus ulcer of sacral region, stage 1 L89.151 [facility] [id number] [place] [address] 53146- 2770 Apr, [facility] [address] 52508- 4974 Apr, [facility] [id number] [place] [address] 97118- 8912 Feb, [facility] [id number] [place] [address] 26506- 9430 Dec, Anxiety F41.9 ; Combined drug dependence excluding opioids, 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 and Unspecified episodic mood disorder F39 [facility] [id number] [place] [address] 59711- 8470 Dec, [facility] [id number] [place] [address] 06427- 5684 Nov, [facility] [id number] [place] [address] 31999- 7296 Nov, [facility] [id number] [place] [address] 38365- 1373 10 Nov, 2015 Other disorder of impulse control F63.89 and Anxiety F41.9 [facility] [id number] [place] [address] 40514- 7481 21 Oct, 2015 [facility] [id number] [place] [address] 65562 -9687 14 Oct, 2015 Open wound of left thigh, initial encounter S71.102A [facility] [id number] [place] [address] 14266- 3900 12 Oct, 2015 [facility] [id number] [place] [address] 20526- 9772 Sep, Unspecified episodic mood disorder F39 ; Other disorder of impulse control 312.39 ; Combined drug dependence excluding opioids, 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 and Anxiety F41.9 [facility] [id number] [place] [address] 61125- 9455 Sep, Other disorder of impulse control 312.39 ; Combined drug dependence excluding opioids, 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 ; Anxiety F41.9 and Unspecified episodic mood disorder F39 [facility] [address] [place] [address] 71805- 4607 Sep, Other chronic pain G89.29 [facility] [id number] [place] [address] 37430- 1935 Sep, [facility] [id number] [place] [address] 21357- 6209 Sep, [facility] [id number] [place] [address] 14975- 6767 Aug, [facility] [id number] [place] [address] 23276- 6323 Aug, [facility] [id number] [place] [address] 98010- 1354 Aug, [facility] [address] [place] [address] 05328- 0192 Jul, [facility] [id number] [place] [address] 03248- 3088 Jul, [facility] [id number] [place] [address] 46016- 9921 Jul, [facility] [id number] [place] [address] 64924- 3621 Jul, Arthritis M19.90 ; Chronic hepatitis C without hepatic coma B18.2 and Left hip pain M25.552 [facility] [address] [place] [address] 81167- 6444 Jul, Left knee pain M25.562 [facility] [address], [place] [address]- 9279 Jul, Combined drug dependence excluding opioids, 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 ; Anxiety F41.9 ; Other disorder of impulse control 312.39 and Unspecified episodic mood disorder F39 [facility] [address], [place] [address]- 0868 Jul, Left knee pain M25.562 [facility] [id number] [place] [address] 016066- 3903 08 Jul, 2015 Left knee pain M25.562 and Left hip pain M25.552 [facility] [id number] [place] [address] 80998- 0547 Jul, [facility] [id number] [place] [address] 51183- 4432 June, [facility] [id number] [place] [address] 02433- 7969 June, Combinations of drug dependence excluding opioid type drug, unspecified abuse 304.80 ; Other disorder of impulse control 312.39 ; Unspecified episodic mood disorder F39 and Anxiety F41.9 [facility] [id number] [place] [address] 54900- 9967 June, Other fatigue R53.83 ; Headache R51 and Left knee pain M25.562 [facility] [address] [place] [address] 83699- 3174 June, Unspecified episodic mood disorder F39 ; Combinations of drug dependence excluding opioid type drug, unspecified abuse 304.80 ; Other disorder of impulse control 312.39 and Anxiety F41.9 [facility] [address] [place] [address] 24874- 1325 June, Anxiety F41.9 [facility] [address] [place] [address] 45731- 4561 June, Pain in left knee M25.562 [facility] [address], [place] [address]- 5356 June, Anxiety F41.9 and Combinations of drug dependence excluding opioid type drug, unspecified abuse 304.80 [facility] [address] [place] [address] 45486- 8505 June, Unspecified episodic mood disorder 296.90 ; Combinations of drug dependence excluding opioid type drug, unspecified abuse 304.80 and Other disorder of impulse control 312.39 [facility] [id number] [place] [address] 05192- 8432 June, Anxiety F41.9 and Unspecified episodic mood disorder 296.90 [facility] [id number] [place] [address] 98419- 9703 May, Arthritis M19.90 [facility] [id number] [place] [address] 76618- 8596 May, Arthritis M19.90 [facility] [id number] [place] [address] 06002- 8258 May, Anxiety F41.9 ; Combinations of drug dependence excluding opioid type drug, unspecified abuse 304.80 and Other disorder of impulse control 312.39 [facility] [id number] [place] [address] 25601- 4819 May, Left knee pain M25.562 [facility] [id number] [place] [address] 34266- 5615 May, Arthritis M19.90 [facility] [id number] [place] [address] 48210- 0593 May, [facility] [id number] [place] [address] 00934- 9358 May, Anxiety F41.9 ; Unspecified episodic mood disorder 296.90 ; Combinations of drug dependence excluding opioid type drug, unspecified abuse 304.80 and Other disorder of impulse control 312.39 [facility] [id number] [place] [address] 33549- 6678 May, Left knee pain M25.562 [id number] [place] [address] 19813- 0241 May, Left knee pain M25.562 ; Combinations of drug dependence excluding opioid type drug, unspecified abuse 304.80 ; Other disorder of impulse control 312.39 ; Fibromyalgia M79.7 ; Hypertension I10 ; Unspecified episodic mood disorder 296.90 and Left hip pain M25.552 [facility] [id number] [place] [address] 30454- 1256 May, Unspecified episodic mood disorder 296.90 ; Other disorder of impulse control 312.39 ; Combinations of drug dependence excluding opioid type drug, unspecified abuse 304.80 and Anxiety F41.9 [id number] [place] [address] 09852- 2667 May, Left knee pain M25.562 ; Combinations of drug dependence excluding opioid type drug, unspecified abuse 304.80 ; Other disorder of impulse control 312.39 ; Fibromyalgia M79.7 ; Hypertension I10 ; Unspecified episodic mood disorder 296.90 and Left hip pain M25.552 [facility] [id number] [place] [address] 13522- 5056 May, Anxiety F41.9 ; Unspecified episodic mood disorder 296.90 ; Other disorder of impulse control 312.39 and Combinations of drug dependence excluding opioid type drug, unspecified abuse 304.80 [id number] [place] [address] 37290- 7199 Apr, 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 and 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, implants and grafts, initial encounter T84.82XA [address] 30006- 3629 Apr, Anxiety F41.9 ; Unspecified episodic mood disorder 296.90 ; Combinations of drug dependence excluding opioid type drug, unspecified abuse 304.80 and Other disorder of impulse control 312.[address] 43711- 9812 Apr, Arthritis M19.90 [facility] [address], [place] [address]- 7877 Apr, Anxiety F41.9 ; Unspecified episodic mood disorder 296.90 ; Combinations of drug dependence excluding opioid type drug, unspecified abuse 304.80 and Other disorder of impulse control 312.39 [facility] [address] [place] [address] 36493- 7276 17 Apr, 2015 Arthritis M19.90 [facility] [id number] [place] [address] 78186- 3237 Apr, [facility] [id number] [place] [address] 25550- 1086 15 Apr, 2015 [facility] [address] [place] [address] 70169- 9945 Apr, Unspecified episodic mood disorder 296.90 ; Combinations of drug dependence excluding opioid type drug, unspecified abuse 304.80 ; Other disorder of impulse control 312.39 and Anxiety F41.9 [facility] [address], [place] [address] -8476 Apr, Left knee pain M25.562 [facility] [address], [place] [address]- 3098 Apr, [facility] [address] [place] [address] 16025- 6050 Mar, Unspecified episodic mood disorder 296.90 ; Anxiety F41.9 ; Other disorder of impulse control 312.39 and Combinations of drug dependence excluding opioid type drug, unspecified abuse 304.80 [facility] [address] [place] [address] 96109- 2860 Mar, Hyperpigmentation L81.9 [facility] [address] [place] [address]- 9650 Mar, Arthritis M19.90 and Anxiety F41.9 [facility] [id number] [place] [address] 44446- 1187 22 Mar, 2015 Unspecified episodic mood disorder F39 ; Combined drug dependence excluding opioids, 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 ; Other disorder of impulse control F63.89 and Anxiety F41.9 [facility] [id number] [place] [address] 04850- 6120 12 Mar, 2015 Well woman exam Z01.419 ; Other fatigue R53.83 ; Hot flashes N95.1 ; Depression, unspecified depression type F32.9 and Body mass index (BMI) of 23.0-23.9 in adult Z68.23 [facility] [address] 43039- 3384 11 Mar, 2015 Unspecified episodic mood disorder 296.90 ; Other disorder of impulse control 312.39 and Anxiety F41.9 [facility] [id number] [place] [address] 66868- 6128 11 Mar, 2015 Well woman exam Z01.419 [...] of breast Z12.39 and Limited mobility Z74.09 [facility] [id number] [place] [address] 36665- 4454 10 Mar, 2015 [facility] [id number] [place] [address] 21370- 1954 10 Mar, 2015 [facility] [id number] [place] [address] 58199- 9660 08 Mar, 2015 [facility] [id number] [place] [address] 96540- 1924 Mar, Other specified complication of internal orthopedic prosthetic devices, implants and grafts, initial encounter T84.89XA ; Fibromyalgia M79.7 ; Hypertension I10 ; Anemia D64.9 ; Insomnia G47.00 ; Anxiety F41.9 ; Arthritis M19.90 and Migraine G43.909 [facility] [address] 70889- 1230 Mar, [facility] [address] 15085- 2815 Feb, [facility] [address] 28728- 2180 Feb, Arthritis M19.90 and Anxiety F41.9 [facility] [address] 34870- 7432 Feb, [facility] [address] 93720- 5778 Feb, [facility] [address] 92221- 1090 Feb, [facility] [address] 60700- 1458 Feb, [facility] [id number] [place] [address] 88694- 7965 Feb, Anxiety F41.9 [facility] [id number] [place] [address] 28472- 6021 Feb, [facility] [address] 32797- 0485 Feb, [place] [address] [address] Feb, 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 [id number] [place] [address] [id number] 6909 Jan, [facility] [id number], [place] [address] 3349 Jan, [facility] [id number] [place] [address] 01495- 1655 Jan, [facility] [id number] [place] [address] 33103- 1335 Jan, [facility] [id number], [place] [address] 6275 Jan, [facility] [id number] [place] [address] 39266- 9424 Dec, [facility] [id number], [place] [address]- 6160 Dec, Left knee pain M25.562 [facility] [address], [place] [address]- 7664 Dec, Left knee pain M25.562 [facility] [id number], [place] [address] 4085 16 Dec, 2014 Fibromyalgia M79.7 ; Hypertension I10 and Arthritis M19.90 [facility] [id number], [place] [address]- 4262 Dec, [facility] [id number], [place] [address]- 4549 Dec, [facility] [id number], [place] [address]- 4728 Dec, [facility] [address] [facility] [id number], [place] [address]- 4814 Dec, [facility] [place] [facility] [address] [facility] [id number], [place] [address]- 0024 Nov, [facility] [address] [facility] [id number] [place] [address] 06325- 5929 Nov, [facility] [place] [facility] [address] [facility] [id number] [place] [address]- 0409 Nov, [facility] [address] [facility] [id number] [place] [address] 22298- 8210 Nov, Hypertension I10 [facility] [address] [facility] [id number], [place] [address]- 2453 23 Oct, 2014 [facility] [place] [facility] [id number] [place] [address] 11902- 4364 17 Oct, 2014 [facility] [address] [facility] [id number], [place] [address]- 8434 Oct, [facility] [id number], [place] [address]- 5346 Oct, [facility] [id number], [place] [address]- 3354 Oct, [facility] [place] [facility] [address], [place] [address]- 2302 Sep, [facility] [place] [facility] [address] [facility] [id number], [place] [address]- 0105 Sep, [facility] [place] [facility] [id number], [place] [address]- 8993 Sep, Hip pain associated with recalled total hip arthroplasty hardware 996.77 [facility] [place] [facility] [address] [facility] [id number], [place] [address]- 0997 Sep, [facility] [place] [facility] [id number] [place] [address] 2546 Sep, [facility] [place] [facility] [address] [id number] [place] [address]- 8843 Sep, [facility] [place] [facility] [address] [id number] [place] [address]- 2106 Aug, [facility] [place] [facility] [address] [id number] [place] [address]- 1956 Jul, [facility] [place] [facility] [address] [id number] [place] [address]- 9661 June, [facility] [place] [facility] [address] [id number] [place] [address]- 9798 June, [facility] [place] [facility] [address] [id number] [place] [address]- 4486 June, [facility] [place] [facility] [address] [id number] [place] [address]- 5639 June, [facility] [place] [facility] [address] [id number] [place] [address]- 8586 June, [facility] [place] [facility] [address] [id number] [place] [address]- 5406 June, [facility] [place] [facility] [address] [id number] [place] [address]- 5296 May, [facility] [place] [facility] [address] [id number] [place] [address]- 4836 May, [facility] [place] [facility] [address] [id number] [place] [address]- 4977 May, [facility] [place] [facility] [address] [id number] [place] [address]- 8046 Apr, [facility] [place] [facility] [address] [id number] [place] [address]- 0126 Apr, [facility] [place] [facility] [address] [id number] [place] [address]- 3611 Apr, [facility] [place] [facility] [address] [id number] [place] [address]- 4043 19 Apr, 2014 [facility] [place] [facility] [address] [id number] [place] [address]- 2758 13 Apr, 2014 [facility] [place] [facility] [address] [id number] [place] [address]- 5700 13 Apr, 2014 [facility] [place] [facility] [address] [id number] [place] [address]- 7010 12 Apr, 2014 [facility] [place] [facility] [address] [id number] [place] [address]- 4219 Apr, [facility] [place] [facility] [address] [id number] [place] [address]- 1957 Apr, [facility] [place] [facility] [address] [id number] [place] [address]- 5992 05 Apr, 2014 [facility] [place] [facility] [address] [id number] [place] [address]- 8809 05 Apr, 2014 [facility] [place] [facility] [address] [id number] [place] [address]- 9250 Mar, [facility] [place] [facility] [address] [id number] [place] [address]- 0866 Mar, [facility] [place] [facility] [address] [id number] [place] [address]- 9443 16 Mar, 2014 [facility] [place] [facility] [address] [id number] [place] [address]- 3063 16 Mar, 2014 [facility] [place] [facility] [address] [id number] [place] [address]- 5695 Mar, [facility] [place] [facility] [address] [id number] [place] [address]- 5292 10 Mar, 2014 [facility] [place] [facility] [address] [id number] [place] [address]- 1618 15 Feb, 2014 [facility] [place] [facility] [address] [id number] [place] [address]- 1794 Feb, [facility] [place] [facility] [address] [id number] [place] [address]- 6982 Feb, [facility] [place] [facility] [address] [id number] [place] [address]- 6317 Feb, [facility] [place] [facility] [address] [id number] [place] [address]- 9837 Jan, [facility] [place] [facility] [address] [id number] [place] [address]- 6718 Jan, [facility] [place] [facility] [address] [id number] [place] [address]- 7370 Jan, [facility] [place] [facility] [address] [id number] [place] [address]- 9377 Jan, [facility] [place] [facility] [address] [id number] [place] [address]- 6363 Dec, [facility] [place] [facility] [address] [id number] [place] [address]- 4255 Dec, [facility] [place] [facility] [address] [id number] [place] [address]- 6313 Dec, [facility] [place] [facility] [address] [id number] [place] [address]- 1476 Dec, [facility] [place] [facility] [address] [id number] [place] [address]- 8661 Dec, [facility] [place] [facility] [address] [id number], [place] [address]- 7199 Dec, [facility] [place] [facility] [address] [id number] [place] [address]- 8156 Dec, [facility] [place] [facility] [address] [id number] [place] [address]- 7965 Dec, [facility] [place] [facility] [address] [id number] [place] [address]- 3012 Dec, [facility] [place] [facility] [address] [id number] [place] 0957 07 Dec, 2013 [facility] [place] [facility] [address] [id number] [place] [address]- 7757 07 Dec, 2013 [facility] [place] [facility] [address] [id number] [place] [address]- 5750 31 Nov, 2013 [facility] [place] [facility] [address] [id number] [place] [address]- 8278 28 Nov, 2013 [facility] [place] [facility] [address] [id number] [place] [address]- 2462 28 Nov, 2013 [facility] [place] [facility] [address] [id number] [place] [address]- 0681 17 Nov, 2013 [facility] [place] [facility] [address] [id number] [place] [address]- 5714 17 Nov, 2013 [facility] [place] [facility] [address] [id number] [place] [address]- 9477 15 Nov, 2013 [facility] [place] [facility] [address] [id number] [place] [address]- 6780 15 Nov, 2013 [facility] [place] [facility] [address] [id number] [place] [address]- 3837 15 Nov, 2013 [facility] [place] [facility] [address] [id number] [place] [address]- 2608 15 Nov, 2013 [facility] [place] [facility] [address] [id number] [place] [address]- 3454 14 Nov, 2013 [facility] [place] [facility] [address] [id number] [place] [address]- 2653 14 Nov, 2013 [facility] [place] [facility] [address] [id number] [place] [address]- 9046 14 Nov, 2013 [facility] [place] [facility] [address] [id number] [place] [address]- 3381 14 Nov, 2013 [facility] [place] [facility] [address] [id number] [place] [address]- 0154 13 Nov, 2013 [facility] [place] [facility] [address] [id number] [place] [address]- 5761 13 Nov, 2013 [facility] [place] [facility] [address] [id number] [place] [address]- 9127 Nov, [facility] [place] [facility] [address] [id number] [place] [address]- 8206 Nov, [facility] [place] [facility] [address] [id number] [place] [address]- 1406 Nov, [facility] [place] [facility] [address] [id number] [place] [address]- 2042 Nov, [facility] [place] [facility] [address] [id number] [place] [address]- 3982 Nov, [facility] [place] [facility] [address] [id number] [place] [address]- 6940 Nov, [facility] [place] [facility] [address] [id number], [place] [address]- 7312 30 Sep, 2013 [facility] [place] [facility] [address] [id number] [place] [address]- 0754 30 Sep, 2013 [facility] [place] [facility] [address] [id number] [place] [address]- 4496 26 Sep, 2013 [facility] [place] [facility] [address] [id number], [place] [address]- 6480 26 Sep, 2013 [facility] [place] [facility] [address] [id number], [place] [address]- 254 22 Sep, 2013 [facility] [place] [facility] [address] [id number] [place] [address]- 2546 22 Sep, 2013 [facility] [place] [facility] [address] [id number], [place] [address]- 1786 18 Sep, 2013 [facility] [place] [facility] [address] [id number], [place] [address]- 2542 18 Oct, 2013 [facility] [place] [facility] [address] [id number] [place] [address]- 7702 18 Oct, 2013 [facility] [place] [facility] [address] [id number] [place] [address]- 1717 18 Oct, 2013 [facility] [place] [facility] [address] [id number] [place] [address]- 6123 Oct, [facility] [place] [facility] [address] [id number] [place] [address]- 2603 Oct, [facility] [place] [facility] [address] [id number] [place] [address] 2540 Oct, [facility] [place] [facility] [address] [id number] [place] [address]- 5311 Oct, [facility] [place] [facility] [address] [id number] [place] [address]- 3419 Sep, [facility] [place] [facility] [address] [id number] [place] [address]- 3650 Sep, [facility] [place] [facility] [address] [id number] [place] [address]- 0124 Sep, [facility] [place] [facility] [address] [id number] [place] [address]- 5380 Sep, [facility] [place] [facility] [address] [id number] [place] [address]- 1566 Sep, [facility] [place] [facility] [address] [id number] [place] [address]- 2540 Sep, [facility] [place] [facility] [address] [id number] [place] [address]- 6507 Sep, [facility] [place] [facility] [address] [id number] [place] [address]- 8520 Sep, [facility] [place] [facility] [address] [id number] [place] [address]- 0646 Sep, [facility] [place] [facility] [address] [id number] [place] [address]- 6457 Sep, [facility] [place] [facility] [address] [id number] [place] [address]- 7554 Sep, [facility] [place] [facility] [address] [id number] [place] [address]- 7741 Sep, [facility] [place] [facility] [address] [id number] [place] [address]- 5641 Sep, [facility] [place] [facility] [address] [id number] [place] [address]- 2084 Sep, [facility] [place] [facility] [address] [id number] [place] [address]- 5442 Sep, [facility] [place] [facility] [address] [id number] [place] [address]- 9439 Sep, [facility] [place] [facility] [address] [id number] [place] [address]- 1009 Sep, [facility] [place] [facility] [address] [id number] [place] [address]- 3814 Sep, [facility] [place] [facility] [address] [id number] [place] [address]- 3458 Aug, [facility] [place] [facility] [address] [id number] [place] [address]- 7832 Aug, [facility] [place] [facility] [address] [id number] [place] [address]- 1354 Aug, [facility] [place] [facility] [address] [id number] [place] [address]- 4867 Aug, [facility] [place] [facility] [address] [id number] [place] [address]- 4969 Aug, [facility] [place] [facility] [address] [id number] [place] [address]- 4847 Aug, [facility] [place] [facility] [address] [id number] [place] [address]- 4116 Jul, [facility] [place] [facility] [address] [id number] [place] [address]- 0924 Jul, [facility] [place] [facility] [address] [id number] [place] [address]- 7489 Jul, [facility] [place] [facility] [address] [id number] [place] [address]- 2879 Jul, [facility] [place] [facility] [address] [id number] [place] [address]- 6431 June, [facility] [place] [facility] [address] [id number] [place] [address]- 0747 June, [facility] [place] [facility] [address] [id number] [place] [address]- 8965 June, [facility] [place] [facility] [address] [id number] [place] [address]- 8454 June, [facility] [place] [facility] [address] [id number] [place] [address]- 6427 June, [facility] [place] [facility] [address] [id number] [place] [address]- 3798 June, [facility] [place] [facility] [address] [id number] [place] [address]- 5191 June, [facility] [place] [facility] [address] [id number] [place] [address]- 6051 May, [facility] [place] [facility] [address] [id number] [place] [address]- 3483 May, [facility] [place] [facility] [address] [id number] [place] [address]- 7951 May, [facility] [place] [facility] [address] [id number] [place] [address]- 7649 May, [facility] [place] [facility] [address] [id number] [place] [address]- 7306 May, [facility] [place] [facility] [address] [id number] [place] [address]- 9112 May, [facility] [place] [facility] [address] [id number] [place] [address]- 8840 31 Apr, 2013 [facility] [place] [facility] [address] [id number] [place] [address]- 2986 31 Apr, 2013 [facility] [place] [facility] [address] [id number] [place] [address]- 5586 28 Apr, 2013 [facility] [place] [facility] [address] [id number] [place] [address]- 1356 28 Apr, 2013 [facility] [place] [facility] [address] [id number] [place] [address]- 8077 14 Apr, 2013 [facility] [place] [facility] [address] [id number] [place] [address]- 8588 14 Apr, 2013 [facility] [place] [facility] [address] [id number] [place] [address]- 3913 Apr, [facility] [place] [facility] [address] [id number] [place] [address]- 9500 Apr, [facility] [place] [facility] [address] [id number] [place] [address]- 9591 10 Apr, 2013 [facility] [place] [facility] [address] [id number] [place] [address]- 3733 10 Apr, 2013 [facility] [place] [facility] [address] [id number] [place] [address]- 8902 04 Apr, 2013 [facility] [place] [facility] [address] [id number] [place] [address]- 4450 04 Apr, 2013 [facility] [place] [facility] [address] [id number] [place] [address]- 8426 Apr, [facility] [place] [facility] [address] [id number] [place] [address]- 6220 Apr, [facility] [place] [facility] [address] [id number] [place] [address]- 0416 Mar, [facility] [place] [facility] [address] [id number] [place] [address]- 0259 Mar, [facility] [place] [facility] [address] [id number] [place] [address]- 1714 Mar, [facility] [place] [facility] [address] [id number] [place] [address]- 0864 Feb, [facility] [place] [facility] [address] [id number] [place] [address]- 3303 Feb, [facility] [place] [facility] [address] [id number] [place] [address]- 2809 Feb, [facility] [place] [facility] [address] [id number] [place] [address]- 2367 Feb, [facility] [place] [facility] [address] [id number] [place] [address]- 4690 Feb, [facility] [place] [facility] [address] [id number] [place] [address]- 3858 Feb, [facility] [place] [facility] [address] [id number] [place] [address]- 7359 Feb, [facility] [place] [facility] [address] [id number] [place] [address]- 7650 Feb, [facility] [place] [facility] [address] [id number] [place] [address]- 3818 Feb, [facility] [place] [facility] [address] [id number], [place] [address]- 4775 Feb, [facility] [place] [facility] [address] [id number], [place] [address]- 1525 Jan, [facility] [place] [facility] [address] [id number] [place] [address]- 2389 Jan, [facility] [place] [facility] [address] [id number] [place] [address]- 2172 Jan, [facility] [place] [facility] [address] [id number] [place] [address]- 0439 Jan, [facility] [place] [facility] [address] [id number] [place] [address]- 1313 24 Jan, 2013 [facility] [address] [id number] [place] [address]- 6746 24 Jan, 2013 [facility] [address] [id number] [place] 5966 Jan, [facility] [address] [id number] [place] [address]- 0326 23 Jan, 2012 [facility] [address] [id number] [place] [address]- 3356 19 Jan, 2013 [facility] [address] [id number] [place] [address]- 9577 19 Jan, 2013 [facility] [address] [id number] [place] [address]- 3170 17 Jan, 2013 [facility] [address] [id number] [place] 1652 17 Jan, 2013 [facility] [address] [id number] [place] [address]- 9154 16 Jan, 2013 [facility] [address] [id number] [place] [address]- 2942 11 Jan, 2013 [facility] [address] [facility] [id number] [place] [address]- 8893 11 Jan, 2013 [facility] [address] [id number] [place] [address]- 8516 09 Jan, 2013 [facility] [place] [facility] [address] [id number] [place] [address]- [address] 09 Jan, 2013 [facility] [place] [facility] [address] [id number] [place] [address] 05 Jan, 2013 [facility] [place] [facility] [address] [id number] [id number] [address] 05 Jan, 2013 [facility] [address] [id number] [place] [address] Jan, [facility] [place] [facility] [address] [id number] [place] [address] Jan, [facility] [place] [facility] [address] [id number] [place] [address] Dec, [facility] [place] [facility] [address] [id number] [place] [address] Dec, [facility] [place] [facility] [address] [id number] [place] [address] Dec, [facility] [place] [facility] [address] [id number] [place] [address] Dec, [facility] [place] [facility] [address] [id number] [place] [address] Dec, [facility] [place] [facility] [address] [id number] [place] [address] Dec, [facility] [place] [facility] [address] [id number] [place] [address] Dec, [facility] [place] [facility] [address] [id number] [place] [address] Dec, [facility] [place] [facility] [address] [id number] [place] [address]- [address] Dec, [facility] [place] [facility] [address] [id number] [place] [address] Dec, [facility] [place] [facility] [address] [id number], [place] [address] Nov, [facility] [place] [facility] [address] [id number] [place] [address] Nov, [facility] [place] [facility] [address] [id number] [place] [address] 2566 Nov, [facility] [place] [facility] [address] [id number], [place] [address] Nov, [facility] [place] [facility] [address] [id number], [place] [address] Nov, [facility] [place] [facility] [address] [id number] [place] [address]- [address] Nov, [facility] [place] [facility] [address] [id number] [place] [address] 3316 Nov, [facility] [place] [facility] [address] [id number] [place] [address]66 Nov, [facility] [place] [facility] [address] [id number] [place] [address]- [address] 10 Nov, 2012 [facility] [place] [facility] [address] [id number] [place] [address]- [address]77 Nov, [facility] [place] [facility] [address] [id number] [place] [address] 42[address] Oct, [facility] [place] [facility] [address] [id number] [place] [address]- 9085 Oct, [facility] [place] [facility] [address] [id number] [place] [address] Oct, [facility] [place] [facility] [address] [id number] [place] [address]- 5069 Oct, [facility] [place] [facility] [address] [id number] [place] [address]- [address] Oct, [facility] [place] [facility] [address] [id number] [place] [address]- [address]37 Sep, [facility] [place] [facility] [address] [id number] [place] [address]- 1796 Sep, [facility] [place] [facility] [address] [id number] [place] [address]32 Aug, [facility] [place] [facility] [address] [id number] [place] [address] Aug, [facility] [place] [facility] [address] [id number] [place] [address] Aug, [facility] [place] [facility] [address] [id number] [place] [address] Aug, [facility] [address] [id number] [place] [address] Aug, [facility] [address] [id number] [place] [address]83 Aug, [facility] [address] [id number] [place] [address]71 Aug, [facility] [address] [id number] [place] [address] Jul, [facility] [address] [id number] [place] [address] Jul, [facility] [address] [id number] [place] [address] 3984 June, [facility] [address] [id number] [place] [address] June, [facility] [address] [id number] [place] [address] 93[address] June, [facility] [address] [id number] [place] [address]- [address]26 June, [facility] [address] [id number] [place] [address]39 June, [facility] [address] [id number] [place] [address]- [address]85 June, [facility] [address] [id number] [place] [address] June, [facility] [address] [id number] [place] [address]- [address]106 June, [facility] [address] [id number] [place] [address]- 2546 June, [facility] [address] [id number] [place] [address]- [address] June, [facility] [address] [id number] [place] [address] June, [facility] [address] [id number] [place] [address]- 0971 May, [facility] [address] [id number] [place] [address]- 1339 May, [facility] [address] [id number] [place] [address]- 6065 May, [facility] [address] [id number] [place] [address] 4020 May, [facility] [address] [id number] [place] [address]- 5458 Apr, [facility] [address] [id number] [place] [address]- 8539 Apr, [facility] [address] [id number] [place] [address]- 5450 Apr, [facility] [address] [id number] [place] [address] 2413 Mar, [facility] [address] [id number] [place] [address]- [address] Mar, [facility] [address] [id number] [place] [address] Feb, [facility] [address] [id number] [place] [address] Feb, [facility] [place] [facility] [address] [id number] [place] [address] Feb, [facility] [place] [facility] [address] [id number] [place] [address] Feb, [facility] [place] [facility] [address] [id number] [place] [address] Feb, [facility] [place] [facility] [address] [id number] [place] [address] 14 Feb, 2012 [facility] [address] [id number] [place] [address] 08 Feb, 2012 [facility] [place] [facility] [address] [id number] [place] [address] 9836 31 Jan, 2012 [facility] [place] [facility] [address] [id number] [place] [address] 7396 31 Jan, 2012 [facility] [place] [facility] [address] [id number] [place] [address] 28 Jan, 2012 [facility] [place] [facility] [address] [id number] [place] [address] 9435 Jan, [facility] [place] [facility] [address] [id number] [place] [address] 6311 17 Jan, 2012 [facility] [address] [id number] [place] [address] 3943 Jan, [facility] [place] [facility] [address] [id number] [place] [address] 1242 Jan, [facility] [place] [facility] [address] [id number] [place] [address] 1227 Jan, [facility] [place] [facility] [address] [id number] [place] [address]- 1149 Jan, [facility] [place] [facility] [address] [id number] [place] [address]- 5968 Jan, [facility] [place] [facility] [address] [id number] [place] [address] 4497 Jan, [facility] [place] [facility] [address] [id number] [place] [address] 2414 Dec, [facility] [place] [facility] [address] [id number] [place] [address] 0626 Dec, [facility] [place] [facility] [address] [id number] [place] [address]- 6736 05 Dec, 2011 [facility] [place] [facility] [address] [id number] [place] [address]- 0958 Dec, [facility] [place] [facility] [address] [id number] [place] [address] 0188 Nov, [facility] [place] [facility] [address] [id number] [place] [address] 6790 Nov, [facility] [place] [facility] [address] [id number] [place] [address]- 2876 Nov, [facility] [place] [facility] [address] [id number] [place] [address] 9610 27 Oct, 2011 [facility] [place] [facility] [address] [id number] [place] [address]- 5653 24 Oct, 2011 [facility] [place] [facility] [address] [id number] [place] [address]- 4265 21 Oct, 2011 [facility] [place] [facility] [address] [id number] [place] [address]- 5760 10 Oct, 2011 [facility] [place] [facility] [address] [id number] [place] [address]- 7445 07 Oct, 2011 [facility] [place] [facility] [address] [id number] [place] [address]- 7656 04 Oct, 2011 [facility] [place] [facility] [address] [id number] [place] [address]- 6092 04 Oct, 2011 [facility] [place] [facility] [address] [id number] [place] [address]- 3946 29 Sep, 2011 [facility] [place] [facility] [address] [id number] [place] [address] Sep, [facility] [place] [facility] [address] [id number] [place] [address]- 1225 Sep, [facility] [place] [facility] [address] [id number] [place] [address]- 2731 13 Sep, 2011 [facility] [place] [facility] [address] [id number] [place] [address] 5796 Sep, [facility] [place] [facility] [address] [id number] [place] [address]- 1052 30 Aug, 2011 [facility] [place] [facility] [address] [id number] [place] [address] 7546 Aug, [facility] [place] [facility] [address] [id number] [place] [address]- 6206 Aug, [facility] [place] [facility] [address] [id number] [place] [address] 5097 16 Aug, 2011 [facility] [place] [facility] [address] [id number] [place] [address] 9133 Aug, [facility] [place] [facility] [address] [id number] [place] [address] 5280 Aug, [facility] [place] [facility] [address] [id number] [place] [address]- 1172 Aug, [facility] [place] [facility] [address] [id number] [place] [address] Jul, [facility] [place] [facility] [address] [id number] [place] [address] 3[address] Jul, [facility] [place] [facility] [address] [id number] [place] [address] 4859 Jul, [facility] [place] [facility] [address] [id number] [place] [address]- 9204 Jul, [facility] [place] [facility] [address] [id number] [place] [address] 6763 Jul, [facility] [place] [facility] [address] [id number] [place] [address]- 8294 Jul, [facility] [place] [facility] [address] [id number] [place] [address]- 4318 07 Jul, 2011 [facility] [place] [facility] [address] [id number] [place] [address]- 7203 06 Jul, 2011 [facility] [place] [facility] [address] [id number] [place] [address]- 9935 Jul, [facility] [address] [id number] [place] [address] 5572 June, [facility] [address] [id number] [place] [address]70 June, [facility] [address] [id number] [place] [address]- 3770 June, [facility] [address] [id number] [place] [address]- 3846 June, [facility] [address] [id number] [place] [address]- 5526 June, [facility] [address] [id number] [place] [address]- 1385 June, [facility] [address] [id number] [place] [address] 8254 June, [facility] [address] [id number] [place] [address] 8897 June, [facility] [address] [id number] [place] [address]- 1020 May, [facility] [address] [id number] [place] [address]- 0627 May, [facility] [address] [id number] [place] [address]- 2710 May, [facility] [address] [id number] [place] [address]- 8884 19 May, 2011 [facility] [address] [id number] [place] [address]- 0414 16 May, 2011 [facility] [address] [id number] [place] [address]- 7501 16 May, 2011 [facility] [address] [id number] [place] [address]- 0224 May, [facility] [address] [id number] [place] [address]- 5811 Apr, [facility] [place] [facility] [address] [id number] [place] [address]- 5446 Apr, [facility] [place] [facility] [address] [id number] [place] [address]- 3906 Apr, [facility] [place] [facility] [address] [id number] [place] [address] 2546 Apr, [facility] [place] [facility] [address] [id number] [place] [address]- 5798 Apr, [facility] [place] [facility] [address] [id number] [place] [address]- 6236 Apr, [facility] [place] [facility] [address] [facility] [id number] [place] [address]- 3626 Apr, [facility] [place] [facility] [address] [id number] [place] [address]- 4363 Mar, [facility] [place] [facility] [address] [id number] [place] [address]- 1249 Mar, [facility] [place] [facility] [address] [facility] [id number] [place] [address]- 9889 14 Mar, 2011 [facility] [place] [facility] [address] [id number] [place] [address]- 0186 Mar, [facility] [place] [facility] [address] [id number] [place] [address] 2546 Mar, [facility] [place] [facility] [address] [id number] [place] [address]- 6283 Mar, [facility] [place] [facility] [address] [id number] [place] [address]- 6936 Mar, [facility] [place] [facility] [address] [id number] [place] [address] 2546 Feb, [facility] [place] [facility] [address] [id number] [place] [address]- 2141 30 Feb, 2011 [facility] [address] [id number] [place] [address]- 8776 Feb, [facility] [address] [id number] [place] [address]- 7796 Feb, [facility] [address] [id number] [place] [address]- 0366 Feb, [facility] [address] [id number] [place] [address]- 6113 Feb, [facility] [address] [id number] [place] [address]- 4573 Feb, [facility] [address] [id number] [place] [address]- 6755 Feb, [facility] [address] [id number] [place] [address]- 3256 Feb, [facility] [address] [id number] [place] [address]- 0416 Feb, [facility] [address] [id number] [place] [address]- 6883 Jan, [facility] [address] [id number] [place] [address]- 2477 Jan, [facility] [address] [id number] [place] [address] 2546 Jan, [facility] [address] [id number] [place] [address]- 2543 Jan, [facility] [place] [facility] [address] [id number] [place] [address] 2546 Jan, [facility] [address] [id number] [place] [address]- 2541 Jan, [facility] [address] [id number] [place] [address]- 7417 15 Jan, 2011 [facility] [place] [facility] [address] [id number] [place] [address]- 8155 15 Jan, 2011 [facility] [place] [facility] [address] [id number] [place] [address]- 9642 Jan, [facility] [place] [facility] [address] [id number] [place] [address] Jan, [facility] [place] [facility] [address] [id number] [place] [address]- 6145 Jan, [facility] [place] [facility] [address] [id number] [place] [address]- 6663 Dec, [facility] [place] [facility] [address] [id number] [place] [address]- 5461 Dec, [facility] [place] [facility] [address] [id number] [place] [address]- 6273 Dec, [facility] [place] [facility] [address] [id number] [place] [address]- 6183 16 Dec, 2010 [facility] [place] [facility] [address] [id number] [place] [address]- 5108 Dec, [facility] [place] [facility] [address] [id number] [place] [address]- 3561 Dec, [facility] [place] [facility] [address] [id number] [place] [address]- 2079 Dec, [facility] [place] [facility] [address] [id number], [place] [address]- 6088 Dec, [facility] [place] [facility] [address] [id number] [place] [address]- 5299 Dec, [facility] [place] [facility] [address] [id number] [place] [address]- 9800 Nov, [facility] [place] [facility] [address] [id number] [place] [address]- 8053 Nov, [facility] [place] [facility] [address] [id number] [place] [address]- 7860 Nov, [facility] [place] [facility] [address] [id number] [place] [address]- 0911 Nov, [facility] [place] [facility] [address] [id number] [place] [address]- 1566 24 Nov, 2010 [facility] [place] [facility] [address] [id number] [place] [address]- 1916 13 Nov, 2010 [facility] [place] [facility] [address] [id number] [place] [address]- 9094 Aug, [facility] [place] [facility] [address] [id number] [place] [address]- 5477 14 Feb, 2010 [facility] [place] [facility] [address] [id number] [place] [address]- 5995 14 Jan, 2010 [facility] [place] [facility] [address] [id number] [place] [address]- 0126 Jan, [facility] [place] [facility] [address] [id number] [place] [address]- 4154 Jan, [facility] [place] [facility] [address] [id number] [place] [address]- 6973 Jan, [facility] [place] [facility] [address] [id number] [place] [address]- 6377 Jan, [facility] [place] [facility] [address] [id number], [place] [address]- 5163 Dec, [facility] [place] [facility] [address] [id number] [place] [address]- 1390 Dec, [facility] [place] [facility] [address] [id number] [place] [address]- 5306 Dec, [facility] [place] [facility] [address] [id number] [place] [address]- 4314 Dec, [facility] [place] [facility] [address] [id number] [place] [address]- 6563 Nov, [facility] [place] [facility] [address] [facility] [id number] [place] [address]- 7870 Nov, [facility] [address] [facility] [id number] [place] [address]- [address] Nov, IMMUNIZATIONS No Known Immunizations SOCIAL HISTORY [...]
--- OUTSIDE RECORDS SUMMARY | 2018-01-13 21:36 | XMS REPORT ---
Author Author FIORELLA PIERRE [employer] Address Unknown Phone Unavailable Care Team Providers Care Pharmacy Teacher Name Role Phone FIORELLA PIERRE Unavailable Allergies, Adverse Reactions, Alerts Substance Reaction Event Type Propranolol HCl chest pain, headache Drug Allergy Bactrim unknown Drug Allergy Penicillins unknown Non Drug Allergy Problems Problem Type Condition Code Onset Dates Condition Status Assessment Nausea R11.0 Active Assessment Limited mobility Z74.09 Active Assessment Chills (without fever) R68.83 Active Assessment Screening for malignant neoplasm of breast Z12.39 Active Assessment Other fatigue R53.83 Active Assessment Well woman exam Z01.419 Active Assessment Encounter for screening for malignant neoplasm of cervix Z12.4 Active Problem Fibromyalgia M79.7 Active Problem Arthritis M19.90 Active Assessment Headache R51 Active Assessment Body mass index (BMI) of 23.0-23.9 in adult Z68.23 Active Problem Anxiety F41.9 Active Assessment Hyperpigmentation L81.9 Active Problem Combinations of drug dependence excluding opioid type drug, 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 Problem 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 Problem Hypertension I10 Active Problem Unspecified episodic mood disorder 296.90 Active Assessment Hot flashes N95.1 Active Assessment History of surgical site infection Z86.19 Active Assessment Depression, unspecified depression type F32.9 Active Assessment Anxiety F41.9 Active Assessment History of abnormal cervical Pap smear Z87.898 Active Assessment Post-menopause Z78.0 Active Assessment History of hip surgery Z98.89 Active Assessment History of drug use F19.21 Active Medications Medication Code System Code Instructions Start Date End Date Status Dosage Amlodipine Besylate [facility] 42047128019 5 MG TAKE ONE TABLET BY MOUTH DAILY Aspirin [facility] [address]-88 81 MG Orally Once a day Mar 15, 2015 1 tablet Sumatriptan Succinate [facility] 09751908881 100 MG Orally Once a day 1 tablet as needed one time Furosemide [facility] [address]-84 20 MG Orally Once a day ONE TABLET Klonopin NDC [address]-45 1 MG Orally Twice a day 1 tablet Promethazine HCl [facility] [address]-49 25 MG Orally every 12 hrs Mar 15, 2015 1 tablet as needed Ferrous Sulfate [facility] [address]-22 325 (65 Fe) MG Orally Once a day Mar 15, 2015 1 tablet Melatonin [facility] [address]-42 3 MG Orally Once a day Mar 15, 2015 1 tablet at bedtime as needed with food Lyrica [facility] [address]-15 100 MG Orally Three times a day 1 capsule Clonidine HCl [facility] [address]-17 0.1 MG Orally twice a day Jan 16, 2015 1 tablet Colace [facility] [address]-99 100 MG Orally Once a day Mar 15, 2015 1 capsule as needed Flexeril NDC 0 10 mg 3 times a day Mar 22, 2014 take 1 tablet Procedures Procedure Coding System Code Date Preventive Care Est Pt. Age 40-64 CPT-4 16439 Mar 23, 2015 SPECIMEN HANDLING CPT-4 59003 Mar 23, 2015 Vital Signs Date/Time: Mar 23, 2015 Temperature 97.9 F Weight 155.0 lbs Height 68 in BMI 23.57 Index Blood Pressure Diastolic 78 mmHg Blood Pressure Systolic 126 mmHg Cardiac Monitoring Heart Rate 92 bpm Results No Known Results Summary Purpose [employer] Submission
--- OUTSIDE RECORDS SUMMARY | 2018-01-13 21:36 | XMS REPORT ---
Author Author WYATT SOTO Organization [employer] Address Unknown Phone Unavailable Care Team Providers Care Crtts Name Role Phone WYATT STOO CP Unavailable Allergies No Known Allergies Problems [...]
--- OUTSIDE RECORDS SUMMARY | 2018-01-13 21:36 | XMS REPORT ---
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 Active 79339273 Problem Unspecified episodic mood disorder F39 Active 17194993 Problem 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, 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 936233774 Problem Other chronic pain G89.29 Active 98681743 Problem Left hip pain M25.552 Active 52476228 Problem Anxiety F41.9 Active 65669322 Problem Chronic hepatitis C without hepatic coma B18.2 Active 582881390 Problem Left knee pain M25.562 Active 10769880 ALLERGIES Substance Reaction Event Type Date Status Propranolol HCl chest pain, headache Drug Allergy Apr, Active Bactrim unknown Drug Allergy Apr, Active Penicillins unknown Non Drug Allergy Apr, Active SOCIAL HISTORY Never Assessed PLAN OF CARE Activity Details Follow Up 6 Months Reason: VITAL SIGNS Height 68 in 2016-04-18 Weight 169.9 lbs 2016-04-18 Temperature 97.9 degrees Fahrenheit 2016-04-18 Heart Rate 96 bpm 2016-04-18 Respiratory Rate 24 2016-04-18 BMI 25.83 kg/m2 2016-04-18 Blood pressure systolic 106 mmHg 2016-04-18 Blood pressure diastolic 74 mmHg 2016-04-18 MEDICATIONS Medication Instructions Dosage Frequency Start Date End Date Duration Status OxyContin 10 MG Orally every 12 hrs 1 tablet 12h Active Klonopin 1 MG TAKE ONE TABLET BY MOUTH THREE TIMES DAILY 30 Active Sumatriptan Succinate 100 MG Orally Once a day 1 tablet as needed one time 24h 9 Active Cyclobenzaprine HCl 10 MG TAKE ONE TABLET BY MOUTH THREE TIMES DAILY 30 Active Lyrica 100 mg Orally 3 times a day 1 capsule 8h 30 days Active Olanzapine 10 mg Orally twice a day 1 tablet 12h Active Furosemide 20 MG Orally Once a day ONE TABLET 24h 30 Active Pantoprazole Sodium 40 MG Orally Once a day 1 tablet 24h Active Clonidine HCl 0.1 MG Orally twice a day 1 tablet 12h 30 Active RESULTS No Results PROCEDURES No Known procedures IMMUNIZATIONS No Known Immunizations MEDICAL (GENERAL) HISTORY Type Description Date Medical [...]
--- OUTSIDE RECORDS SUMMARY | 2018-01-13 21:37 | XMS REPORT ---
Author Author WYATT SOTO [facility] e[employer] Address Unknown Phone Unavailable Care Team Providers Care Director Operations Broadcast Name Role Phone WYATT SOTO CP Unavailable [...] Date End Date Status Dosage Oxycodone HCl [facility] [address]-07 10 mg Orally, 3 times a day Feb 14, 2015 1 capsule as needed Results No Known Results Summary Purpose [employer] Submission
--- OUTSIDE RECORDS SUMMARY | 2018-01-13 21:37 | XMS REPORT ---
Author Author WYATT SOTO [facility] [employer] Address Unknown Phone Unavailable Care Team Providers Care Marketing Analyst Name Role Phone WYATT SOTO CP [...]
--- OUTSIDE RECORDS SUMMARY | 2018-01-13 21:38 | XMS REPORT ---
Author Author JUAN CARLOS SHEFFIELD Organization [facility] Address [address] 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 Active 29720179 Problem Unspecified episodic mood disorder F39 Active 87783462 Problem Hypertension I10 Active 68534474 Problem Venous insufficiency (chronic) (peripheral) I87.2 Active 257057630 Problem Gastroesophageal reflux disease, esophagitis presence not specified K21.9 Active 057436355 Problem Other chronic pain G89.29 Active 25467958 Problem Chronic hepatitis C without hepatic coma B18.2 Active 222921331 Problem Other psychoactive substance dependence, uncomplicated F19.20 Active 6497153 Problem 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, 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 664026958 ALLERGIES No Information ENCOUNTERS Encounter Location Date Diagnosis [facility] [id number] [place] [address] 82450- 6402 Jul, [facility] [id number] [place] [address] 48942- 3798 Jul, [facility] [id number] [place] [address] 70733- 3256 June, Gastroesophageal reflux disease, esophagitis presence not specified K21.9 [facility] [id number] [place] [address] 73612- 9441 June, [facility] [id number] [place] [address] 80337- 0421 June, [facility] [address] [address] 5515 June, Arthritis M19.90 [facility] [id number] [place] [address] 77055- 0307 June, [facility] [id number] [place] [address] 41694- 8833 June, [facility] [id number] [place] [address] 79958- 8021 June, Unspecified episodic mood disorder F39 [facility] [id number] [place] [address] 13567- 5911 May, Unspecified episodic mood disorder F39 [facility] [id number] [place] [address] 48319- 1909 May, [facility] [id number] [place] [address] 84829- 4098 May, Arthritis M19.90 [facility] [id number] [place] [address] 59601 -2640 May, Dysuria R30.0 ; Abscess L02.91 and Acute cystitis without hematuria N30.00 [facility] [address] [address] 3199 May, 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 ; Unspecified episodic mood disorder F39 ; Combined drug dependence excluding opioids, 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 ; Anxiety F41.9 and Other psychoactive substance dependence, uncomplicated F19.20 [facility] [address] [address] 4434 May, [facility] [id number] [place] [address] 67354- 9609 May, 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 ; Unspecified episodic mood disorder F39 ; Combined drug dependence excluding opioids, 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 ; Other psychoactive substance dependence, uncomplicated F19.20 and Anxiety F41.9 [facility] [id number] [place] [address] 19332- 8961 May, Other chronic pain G89.29 ; Left hip pain M25.552 ; Hypertension I10 ; 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, 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 and Unspecified episodic mood disorder F39 [facility] [id number] [place] [address] 01928- 8103 28 Apr, 2017 [facility] [id number] [place] [address] 45968 -6729 Apr, Neck pain M54.2 ; Left hip pain M25.552 and Fall, initial encounter W19.XXXA [facility] [address] 93174- 1748 Apr, Unspecified episodic mood disorder F39 ; Combined drug dependence excluding opioids, 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 ; Anxiety F41.9 ; Other psychoactive substance dependence, uncomplicated F19.20 and Other disorder of impulse control F63.89 [facility] [id number] [place] [address] 87591- 0937 Apr, [facility] [id number] [place] [address] 47145- 4160 Apr, Arthritis M19.90 and Unspecified episodic mood disorder F39 [facility] [id number] [place] [address] 92749- 8488 Apr, Unspecified episodic mood disorder F39 [facility] [id number] [place] [address] 56532- 1200 Apr, [facility] [id number] [place] [address] 05798- 4948 08 Apr, 2017 [facility] [id number] [place] [address] 11295- 7545 07 Apr, 2017 Unspecified episodic mood disorder F39 ; Combined drug dependence excluding opioids, 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 ; Anxiety F41.9 ; Other psychoactive substance dependence, uncomplicated F19.20 and Other disorder of impulse control F63.89 [facility] [id number] [place] [address] 99323- 2756 Mar, Unspecified episodic mood disorder F39 [facility] [id number] [place] [address] 58050- 5766 Mar, Gastroesophageal reflux disease, esophagitis presence not specified K21.9 [facility] [id number] [place] [address] 99944- 1547 Mar, Arthritis M19.90 and Unspecified episodic mood disorder F39 [facility] [id number] [place] [address] 11362- 5316 Feb, [facility] [id number] [place] [address] 55793- 6176 Feb, [facility] [id number] [place] [address] 50102- 3039 Feb, [facility] [id number] [place] [address] 77653- 0027 Feb, Arthritis M19.90 [facility] [id number] [place] [address] 85575- 2883 Feb, Non-pressure chronic ulcer of right calf, 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 ; Unspecified episodic mood disorder F39 and Left hip pain M25.552 [facility] [id number] [place] [address] 52552- 5798 Feb, [facility] [id number] [place] [address] 81666 2546 Feb, [facility] [id number] [place] [address] 18882- 8676 Jan, Arthritis M19.90 [facility] [id number] [place] [address] 83860- 2295 Jan, Left hip pain M25.552 and Non-pressure chronic ulcer of right calf, 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 [facility] [address] [address] 1550 Jan, Chronic hepatitis C without hepatic coma B18.2 [facility] [id number] [place] [address] 88069- 4365 Jan, Encounter for immunization Z23 ; Venous insufficiency ( chronic) (peripheral) I87.2 ; Non-pressure chronic ulcer of unspecified calf limited to breakdown of skin L97.201 and Gastroesophageal reflux disease, esophagitis presence not specified K21.9 [facility] [id number] [place] [address] 92317- 7696 Jan, [facility] [id number] [place] [address] 88244- 3915 Jan, Chronic hepatitis C without hepatic coma B18.2 and Encounter for immunization Z23 [facility] [id number] [place] [address] 36353- 1189 Jan, Arthritis M19.90 [facility] [id number] [place] [address] 31017- 4930 Jan, [facility] [id number] [place] [address] 83363- 8119 Dec, [facility] [id number] [place] [address] 65794- 9895 Dec, Unspecified episodic mood disorder F39 [facility] [id number] [place] [address] 08554- 4007 Dec, Arthritis M19.90 [facility] [id number] [place] [address] 65550- 4599 Dec, Arthritis M19.90 [facility] [id number] [place] [address] 25553- 5861 Nov, [facility] [id number] [place] [address] 62266- 0758 Nov, [facility] [id number] [place] [address] 32572- 8236 Nov, Other psychoactive substance dependence, uncomplicated F19.20 ; 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, 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 and Chronic hepatitis C without hepatic coma B18.2 [facility] [id number] [place] [address] 65964- 6617 Nov, Arthritis M19.90 [facility] [id number] [place] [address] 49062 -1567 Oct, Partial thickness burn of abdomen, initial encounter T21.22XA [facility] [id number] [place] [address] 57895- 6744 Oct, [facility] [id number] [place] [address] 12716- 9503 Sep, Arthritis M19.90 [facility] [id number] [place] [address] 13408- 6418 Sep, [facility] [id number] [place] [address] 02544- 0486 Sep, [facility] [id number] [place] [address] 66404- 3287 Sep, Unspecified episodic mood disorder F39 ; Chronic hepatitis C without hepatic coma B18.2 and Left hip pain M25.552 [facility] [id number] [place] [address] 15071- 4646 Sep, Arthritis M19.90 and Left hip pain M25.552 [facility] [id number] [place] [address] 33577- 3774 Aug, [facility] [id number] [place] [address] 69802- 2227 Aug, [facility] [id number] [place] [address] 05569- 9929 Aug, Chronic hepatitis C without hepatic coma B18.2 [facility] [address] [place] [address]- 9780 Aug, [facility] [id number] [place] [address] 89806- 5059 Aug, Chronic hepatitis C without hepatic coma B18.2 [facility] [id number] [place] [address] 37450- 8255 Aug, 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, 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 [facility] [id number] [place] [address] 70387- 8163 Aug, [facility] [id number] [place] [address] 71806- 4260 Aug, Chronic hepatitis C without hepatic coma B18.2 and Hypertension I10 [facility] [id number] [place] [address] 70908- 9850 Jul, [facility] [id number] [place] [address] 32172- 0616 June, [facility] [id number] [place] [address] 72997- 7392 Apr, Fibromyalgia M79.7 ; Left hip pain M25.552 and Decubitus ulcer of sacral region, stage 1 L89.151 [facility] [id number] [place] [address] 66987- 2553 Apr, [facility] [id number] [place] [address] 36997- 5785 Apr, [facility] [id number] [place] [address] 81948- 2957 Feb, [facility] [id number] [place] [address] 08007- 5771 Dec, Anxiety F41.9 ; Combined drug dependence excluding opioids, 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 and Unspecified episodic mood disorder F39 [facility] [id number] [place] [address] 82199- 3856 Dec, [facility] [address] [address]- 4644 Nov, [facility] [id number] [place] [address] 37667- 6719 Nov, [facility] [id number] [place] [address] 62606- 1525 Nov, Other disorder of impulse control F63.89 and Anxiety F41.9 [facility] [id number] [place] [address] 53080- 1678 Oct, [facility] [id number] [place] [address] 33315 -3830 Oct, Open wound of left thigh, initial encounter S71.102A [facility] [id number] [place] [address] 60112- 8833 Oct, [facility] [id number] [place] [address] 33319- 1120 Sep, Unspecified episodic mood disorder F39 ; Other disorder of impulse control 312.39 ; Combined drug dependence excluding opioids, 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 and Anxiety F41.9 [facility] [id number] [place] [address] 69217- 6258 Sep, Other disorder of impulse control 312.39 ; Combined drug dependence excluding opioids, 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 ; Anxiety F41.9 and Unspecified episodic mood disorder F39 [facility] [id number] [place] [address] 55838- 8416 Sep, Other chronic pain G89.29 [facility] [id number] [place] [address] 60342- 5711 Sep, [facility] [id number] [place] [address] 32262- 1309 Sep, [facility] [id number] [place] [address] 07770- 7021 Aug, [facility] [id number] [address]- 5961 Aug, [facility] [id number] [place] [address] 66315- 4857 Aug, [facility] [id number] [place] [address] 04537- 8091 Jul, [facility] [id number] [place] [address] 90749- 4902 Jul, [facility] [id number] [place] [address] 95008- 0344 Jul, [facility] [id number] [place] [address] 89857- 0452 Jul, Arthritis M19.90 ; Chronic hepatitis C without hepatic coma B18.2 and Left hip pain M25.552 [facility] [id number] [place] [address] 51764- 5991 Jul, Left knee pain M25.562 [facility] [id number] [place] [address] 13813- 0504 Jul, Combined drug dependence excluding opioids, 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 ; Anxiety F41.9 ; Other disorder of impulse control 312.39 and Unspecified episodic mood disorder F39 [facility] [address] [address]- 8439 Jul, Left knee pain M25.562 [facility] [id number] [place] [address] 96556- 6958 Jul, Left knee pain M25.562 and Left hip pain M25.552 [facility] [id number] [place] [address] 95332- 2190 Jul, [facility] [id number] [place] [address] 15245- 6375 June, [facility] [id number] [place] [address] 83301- 6150 June, Combinations of drug dependence excluding opioid type drug, unspecified abuse 304.80 ; Other disorder of impulse control 312.39 ; Unspecified episodic mood disorder F39 and Anxiety F41.9 [facility] [id number] [place] [address] 23654- 1801 June, Other fatigue R53.83 ; Headache R51 and Left knee pain M25.562 [facility] [id number] [place] [address] 22577- 1313 June, Unspecified episodic mood disorder F39 ; Combinations of drug dependence excluding opioid type drug, unspecified abuse 304.80 ; Other disorder of impulse control 312.39 and Anxiety F41.9 [facility] [id number] [place] [address] 89142- 4506 June, Anxiety F41.9 [facility] [id number] [place] [address] 30017- 5722 June, Pain in left knee M25.562 [facility] [id number] [place] [address] 45464- 4499 June, Anxiety F41.9 and Combinations of drug dependence excluding opioid type drug, unspecified abuse 304.80 [facility] [id number] [place] [address] 96420- 7427 June, Unspecified episodic mood disorder 296.90 ; Combinations of drug dependence excluding opioid type drug, unspecified abuse 304.80 and Other disorder of impulse control 312.39 [facility] [id number] [place] [address] 04819- 7389 June, Anxiety F41.9 and Unspecified episodic mood disorder 296.90 [facility] [id number] [place] [address] 74091- 4349 May, Arthritis M19.90 [facility] [id number] [place] [address] 03902- 4944 May, Arthritis M19.90 [facility] [id number] [place] [address] 49030- 7377 May, Anxiety F41.9 ; Combinations of drug dependence excluding opioid type drug, unspecified abuse 304.80 and Other disorder of impulse control 312.39 [facility] [address] [address]- 3941 May, Left knee pain M25.562 [facility] [address] [place] [address]- 4436 May, Arthritis M19.90 [facility] [id number] [place] [address] 03588- 9944 May, [facility] [id number] [place] [address] 46098- 9074 May, Anxiety F41.9 ; Unspecified episodic mood disorder 296.90 ; Combinations of drug dependence excluding opioid type drug, unspecified abuse 304.80 and Other disorder of impulse control 312.39 [facility] [id number] [place] [address] 95891- 6887 May, Left knee pain M25.562 [facility] [id number] [place] [address] 86312- 2286 May, Left knee pain M25.562 ; Combinations of drug dependence excluding opioid type drug, unspecified abuse 304.80 ; Other disorder of impulse control 312.39 ; Fibromyalgia M79.7 ; Hypertension I10 ; Unspecified episodic mood disorder 296.90 and Left hip pain M25.552 [facility] [address] [address]- 3913 May, Unspecified episodic mood disorder 296.90 ; Other disorder of impulse control 312.39 ; Combinations of drug dependence excluding opioid type drug, unspecified abuse 304.80 and Anxiety F41.9 [facility] [id number] [place] [address] 32116- 4825 May, Left knee pain M25.562 ; Combinations of drug dependence excluding opioid type drug, unspecified abuse 304.80 ; Other disorder of impulse control 312.39 ; Fibromyalgia M79.7 ; Hypertension I10 ; Unspecified episodic mood disorder 296.90 and Left hip pain M25.552 [facility] [id number] [place] [address] 67483- 1086 May, Anxiety F41.9 ; Unspecified episodic mood disorder 296.90 ; Other disorder of impulse control 312.39 and Combinations of drug dependence excluding opioid type drug, unspecified abuse 304.80 [facility] [id number] [place] [address] 05430- 1144 30 Apr, 2015 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 and 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, implants and grafts, initial encounter T84.82XA [facility] [id number] [place] [address] 73794- 8799 Apr, Anxiety F41.9 ; Unspecified episodic mood disorder 296.90 ; Combinations of drug dependence excluding opioid type drug, unspecified abuse 304.80 and Other disorder of impulse control 312.39 [facility] [id number] [place] [address] 94372- 3500 Apr, Arthritis M19.90 [facility] [id number] [place] [address] 39893- 1531 Apr, Anxiety F41.9 ; Unspecified episodic mood disorder 296.90 ; Combinations of drug dependence excluding opioid type drug, unspecified abuse 304.80 and Other disorder of impulse control 312.39 [facility] [id number] [place] [address] 15023- 0189 17 Apr, 2015 Arthritis M19.90 [facility] [id number] [place] [address] 44926- 7033 15 Apr, 2015 [facility] [id number] [place] [address] 71584- 9354 Apr, [facility] [id number] [place] [address] 08637- 9866 14 Apr, 2015 Unspecified episodic mood disorder 296.90 ; Combinations of drug dependence excluding opioid type drug, unspecified abuse 304.80 ; Other disorder of impulse control 312.39 and Anxiety F41.9 [facility] [address] [place] [address] -5516 Apr, Left knee pain M25.562 [facility] [id number] [place] [address] 67931- 9506 Apr, [facility] [id number] [place] [address] 38940- 7955 Mar, Unspecified episodic mood disorder 296.90 ; Anxiety F41.9 ; Other disorder of impulse control 312.39 and Combinations of drug dependence excluding opioid type drug, unspecified abuse 304.80 [facility] [id number] [place] [address] 12199- 1023 Mar, Hyperpigmentation L81.9 [facility] [id number] [place] [address] 01115- 3475 Mar, Arthritis M19.90 and Anxiety F41.9 [facility] [id number] [place] [address] 66829- 6678 Mar, Unspecified episodic mood disorder F39 ; Combined drug dependence excluding opioids, 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 ; Other disorder of impulse control F63.89 and Anxiety F41.9 [facility] [id number] [place] [address]4988- 0022 12 Mar, 2015 Well woman exam Z01.419 ; Other fatigue R53.83 ; Hot flashes N95.1 ; Depression, unspecified depression type F32.9 and Body mass index (BMI) of 23.0-23.9 in adult Z68.23 [facility] [id number] [place] [address] 91506- 7152 11 Mar, 2015 Unspecified episodic mood disorder 296.90 ; Other disorder of impulse control 312.39 and Anxiety F41.9 [facility] [id number] [place] [address] 39275- 8475 11 Mar, 2015 Well woman exam Z01.419 [...] of breast Z12.39 and Limited mobility Z74.[address] [address]- 9275 Mar, [place] [address] [address]- 0428 Mar, [address] [address]- 4354 Mar, [address] [address]- 8193 Mar, Other specified complication of internal orthopedic prosthetic devices, implants and grafts, initial encounter T84.89XA ; Fibromyalgia M79.7 ; Hypertension I10 ; Anemia D64.9 ; Insomnia G47.00 ; Anxiety F41.9 ; Arthritis M19.90 and Migraine G43.[address] [address]- 0214 Mar, [place] [address] [address]- 8539 Feb, [address] [address]14- 7094 Feb, Arthritis M19.90 and Anxiety F41.[address] 96084- 4446 Feb, [address] 53209- 1050 Feb, [facility] [address] [address] 0982 Feb, [facility] [id number] [place] [address] 45820- 5788 Feb, [facility] [id number] [place] [address] 07909- 2994 Feb, Anxiety F41.9 [facility] [id number] [place] [address] 29302- 3984 15 Feb, 2015 [facility] [id number] [place] [address] 64761- 4585 Feb, [facility] [id number] [place] [address] 82406- 8737 07 Feb, 2015 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 and Fibromyalgia M79.7 [facility] [id number] [place] [address] 13086- 3110 Feb, [facility] [address] [address] 7077 Jan, [facility] [id number] [place] [address] 60952- 3721 Jan, [facility] [address] [address]- 0645 Jan, [facility] [address] [address]- 3697 24 Jan, 2015 [facility] [address] [address]- 5163 16 Jan, 2015 [facility] [id number] [place] [address] 11388- 8606 08 Jan, 2015 [facility] [address] 5780 07 Jan, 2015 [facility] [id number] [place] [address] 90899- 2331 Jan, [facility] [address] [address]- 1388 Dec, [facility] [id number] [place] [address] 73133- 1829 Dec, Left knee pain M25.562 [facility] [id number] [place] [address] 653797- 7051 Dec, Left knee pain M25.562 [facility] [id number] [place] [address] 06194- 2977 Dec, Fibromyalgia M79.7 ; Hypertension I10 and Arthritis M19.90 [facility] [id number] [place] [address] 92880- 1565 Dec, [facility] [id number] [place] [address] 80563- 1920 Dec, [facility] [id number] [place] [address] 65235- 5011 Dec, [facility] [id number] [place] [address] 03705- 5325 Dec, [facility] [id number] [place] [address] 60444- 7047 Nov, [facility] [id number], [place] [address]- 1037 Nov, [facility] [address], [place] [address]- 2161 Nov, [facility] [address], [place] [address]- 2439 Nov, Hypertension I10 [facility] [id number], [place] [address]- 8279 Oct, [facility] [id number], [place] [address]- 8390 Oct, [facility] [address] [id number] [address]- 5954 Oct, [facility] [address] [id number], [place] [address]- 9344 Oct, [facility] [place] [facility] [address] [id number], [place] [address]- 0299 Oct, [facility] [address] [id number], [place] [address]- 5200 Sep, [facility] [place] [facility] [address] [id number], [place] [address]- 1060 Sep, [facility] [id number] [place] [address] 37270- 0701 Sep, Hip pain associated with recalled total hip arthroplasty hardware 996.77 [facility] [place] [facility] [address] [facility] [id number], [place] [address]- 1361 Sep, [facility] [address] [facility] [id number], [place] [address]- 8062 Sep, [facility] [place] [facility] [address] [facility] [id number], [place] [address]- 9420 Sep, [facility] [place] [facility] [address] [facility] [id number], [place] [address]- 5551 Aug, [facility] [place] [facility] [address] [facility] [id number], [place] [address]- 6908 Jul, [facility] [place] [facility] [address] [facility] [id number], [place] [address]- 5154 June, [facility] [place] [facility] [address] [facility] [id number], [place] [address]- 8781 June, [facility] [place] [facility] [address] [facility] [id number], [place] [address]- 3525 June, [facility] [place] [facility] [address] [facility] [id number], [place] [address]- 3885 June, [facility] [place] [facility] [address] [id number], [place] [address]- 2509 June, [facility] [place] [facility] [address] [id number] [place] [address]- 0961 June, [facility] [place] [facility] [address] [id number] [place] [address]- 6534 May, [facility] [place] [facility] [address] [id number] [place] [address]- 3138 May, [facility] [place] [facility] [address] [id number] [place] [address]- 8374 May, [facility] [place] [facility] [address] [id number] [place] [address]- 9290 Apr, [facility] [place] [facility] [address] [id number] [place] [address]- 3092 Apr, [facility] [place] [facility] [address] [id number] [place] [address]- 0691 Apr, [facility] [place] [facility] [address] [id number] [place] [address]- 8090 Apr, [facility] [place] [facility] [address] [id number] [place] [address]- 0747 Apr, [facility] [place] [facility] [address] [facility] [id number] [place] [address]- 5418 Apr, [facility] [place] [facility] [address] [id number] [place] [address]- 1412 Apr, [facility] [place] [facility] [address] [id number] [place] [address]- 3809 Apr, [facility] [place] [facility] [address] [id number] [place] [address]- 3640 10 Apr, 2014 [facility] [place] [facility] [address] [id number] [place] [address]- 5112 Apr, [facility] [place] [facility] [address] [facility] [id number] [place] [address]- 9535 Apr, [facility] [place] [facility] [address] [id number] [place] [address]- 6910 Mar, 2014 [facility] [place] [facility] [address] [id number] [place] [address]- 2529 Mar, 2014 [facility] [place] [facility] [address] [id number] [place] [address]- 9485 16 Mar, 2014 [facility] [place] [facility] [address] [id number] [place] [address]- 8844 Mar, 2014 [facility] [place] [facility] [address] [id number] [place] [address]- 7022 Mar, 2014 [facility] [place] [facility] [address] [id number] [place] [address]- 7303 Mar, [facility] [place] [facility] [address] [id number] [place] [address]- 1365 Feb, [facility] [place] [facility] [address] [id number] [place] [address]- 0587 Feb, [facility] [place] [facility] [address] [id number] [place] [address]- 6272 Feb, [facility] [place] [facility] [address] [id number] [place] [address]- 5729 Feb, [facility] [place] [facility] [address] [id number] [place] [address]- 0664 Jan, [facility] [place] [facility] [address] [id number] [place] [address]- 5342 Jan, [facility] [place] [facility] [address] [id number] [place] [address]- 8025 Jan, [facility] [place] [facility] [address] [id number] [place] [address]- 3212 Jan, [facility] [place] [facility] [address] [id number] [place] 8119 Dec, [facility] [place] [facility] [address] [id number], [place] [address]- 3776 Dec, [facility] [place] [facility] [address] [id number] [place] [address]- 9511 Dec, [facility] [place] [facility] [address] [id number] [place] [address]- 3408 Dec, [facility] [place] [facility] [address] [id number] [place] [address]- 4351 Dec, [facility] [place] [facility] [address] [id number] [place] [address]- 5835 Dec, [facility] [place] [facility] [address] [id number] [place] [address]- 1557 Dec, [facility] [place] [facility] [address] [id number] [place] [address]- 0586 Dec, [facility] [place] [facility] [address] [id number] [place] [address]- 0584 Dec, [facility] [place] [facility] [address] [id number] [place] [address]- 5266 Dec, [facility] [place] [facility] [address] [id number] [place] [address]- 3625 Dec, [facility] [place] [facility] [address] [id number] [place] [address]- 9512 Nov, [facility] [place] [facility] [address] [id number], [place] [address]- 6160 Nov, [facility] [place] [facility] [address] [id number], [place] [address]- 8375 28 Nov, 2013 [facility] [place] [facility] [address] [id number] [place] [address]- 2414 17 Nov, 2013 [facility] [place] [facility] [address] [id number] [place] [address]- 9547 17 Nov, 2013 [facility] [place] [facility] [address] [id number] [place] [address]- 6728 15 Nov, 2013 [facility] [place] [facility] [address] [id number] [place] [address]- 3361 15 Nov, 2013 [facility] [place] [facility] [address] [id number] [place] [address]- 9604 15 Nov, 2013 [facility] [place] [facility] [address] [id number] [place] [address]- 9556 15 Nov, 2013 [facility] [place] [facility] [address] [id number] [place] [address]- 7594 14 Nov, 2013 [facility] [place] [facility] [address] [id number] [place] [address]- 4871 14 Nov, 2013 [facility] [place] [facility] [address] [id number] [place] [address]- 6704 14 Nov, 2013 [facility] [place] [facility] [address] [id number] [place] [address]- 2570 14 Nov, 2013 [facility] [place] [facility] [address] [id number] [place] [address]- 2048 13 Nov, 2013 [facility] [place] [facility] [address] [id number] [place] [address]- 5063 13 Nov, 2013 [facility] [place] [facility] [address] [id number] [place] [address]- 0610 11 Nov, 2013 [facility] [place] [facility] [address] [id number] [place] [address]- 3669 11 Nov, 2013 [facility] [place] [facility] [address] [id number] [place] [address]- 6233 07 Nov, 2013 [facility] [place] [facility] [address] [id number] [place] [address]- 7382 07 Nov, 2013 [facility] [place] [facility] [address] [id number] [place] [address]- 6131 07 Nov, 2013 [facility] [place] [facility] [address] [id number] [place] [address]- 6931 07 Nov, 2013 [facility] [place] [facility] [address] [id number] [place] [address]- 8878 30 Oct, 2013 [facility] [place] [facility] [address] [id number] [place] [address]- 7514 30 Oct, 2013 [facility] [place] [facility] [address] [id number] [place] [address]- 3608 26 Oct, 2013 [facility] [place] [facility] [address] [id number] [place] [address]- 4280 26 Oct, 2013 [facility] [place] [facility] [address] [id number] [place] [address]- 8462 22 Oct, 2013 [facility] [place] [facility] [address] [id number] [place] [address]- 3681 22 Oct, 2013 [facility] [place] [facility] [address] [id number] [place] [address]- 4747 18 Oct, 2013 [facility] [place] [facility] [address] [id number] [place] [address]- 3259 18 Oct, 2013 [facility] [place] [facility] [address] [id number] [place] [address]- 6733 18 Oct, 2013 [facility] [place] [facility] [address] [id number] [place] [address]- 2252 18 Oct, 2013 [facility] [place] [facility] [address] [id number] [place] [address]- 7121 12 Oct, 2013 [facility] [place] [facility] [address] [id number] [place] [address]- 3750 Oct, 2013 [facility] [place] [facility] [address] [id number], [place] [address]- 4108 Oct, 2013 [facility] [place] [facility] [address] [id number] [place] [address]- 5289 Oct, [facility] [place] [facility] [address] [id number] [place] [address]- 8995 Sep, [facility] [place] [facility] [address] [id number] [place] [address]- 8032 Sep, [facility] [place] [facility] [address] [id number] [place] [address]- 8711 Sep, [facility] [place] [facility] [address] [id number] [place] [address]- 7435 Sep, [facility] [place] [facility] [address] [id number] [place] [address]- 4179 Sep, [facility] [place] [facility] [address] [id number] [place] [address]- 9527 Sep, [facility] [place] [facility] [address] [id number] [place] [address]- 8456 Sep, [facility] [place] [facility] [address] [id number] [place] [address]- 2523 Sep, [facility] [place] [facility] [address] [id number] [place] [address]- 4676 Sep, [facility] [place] [facility] [address] [id number] [place] [address]- 7786 Sep, [facility] [place] [facility] [address] [id number] [place] [address]- 3387 Sep, [facility] [place] [facility] [address] [id number] [place] [address]- 7824 Sep, [facility] [place] [facility] [address] [id number] [place] [address]- 2244 Sep, [facility] [place] [facility] [address] [id number] [place] [address]- 4493 Sep, [facility] [place] [facility] [address] [id number] [place] [address]- 3415 Sep, [facility] [place] [facility] [address] [id number] [place] [address]- 4563 Sep, [facility] [place] [facility] [address] [id number] [place] [address]- 0104 Sep, [facility] [place] [facility] [address] [id number] [place] [address]- 7419 Sep, [facility] [place] [facility] [address] [id number] [place] [address]- 4102 Aug, [facility] [place] [facility] [address] [id number] [place] [address]- 9955 Aug, [facility] [place] [facility] [address] [id number] [place] [address]- 6562 Aug, [facility] [place] [facility] [address] [id number] [place] [address]- 1744 Aug, [facility] [place] [facility] [address] [id number] [place] [address]- 5788 Aug, [facility] [place] [facility] [address] [id number] [place] [address]- 0975 Aug, [facility] [place] [facility] [address] [id number] [place] [address]- 1991 Jul, [facility] [place] [facility] [address] [id number] [place] [address]- 5035 Jul, [facility] [place] [facility] [address] [id number] [place] [address]- 3428 Jul, [facility] [place] [facility] [address] [id number] [place] [address]- 7006 Jul, [facility] [place] [facility] [address] [id number] [place] [address]- 8391 June, [facility] [place] [facility] [address] [id number] [place] [address]- 4636 June, [facility] [place] [facility] [address] [id number] [place] [address]- 6629 June, [facility] [place] [facility] [address] [id number] [place] [address]- 0109 June, [facility] [place] [facility] [address] [id number] [place] [address]- 0384 June, [facility] [place] [facility] [address] [id number] [place] [address]- 2955 June, [facility] [place] [facility] [address] [id number] [place]092 June, [facility] [place] [facility] [address] [id number] [place] [address]- 4079 May, [facility] [place] [facility] [address] [id number] [place] [address]- 9173 May, [facility] [place] [facility] [address] [id number] [place] [address]- 4159 May, [facility] [place] [facility] [address] [id number] [place] [address]- 4231 May, [facility] [place] [facility] [address] [id number] [place] [address]- 0127 May, [facility] [place] [facility] [address] [id number] [place] [address]- 8739 May, [facility] [place] [facility] [address] [id number] [place] [address]- 9733 Apr, [facility] [place] [facility] [address] [id number] [place] [address]- 8558 31 Apr, 2013 [facility] [place] [facility] [address] [id number] [place] [address]- 1479 Apr, [facility] [place] [facility] [address] [id number] [place] [address]- 2717 28 Apr, 2013 [facility] [place] [facility] [address] [id number] [place] [address]- 1535 14 Apr, 2013 [facility] [place] [facility] [address] [id number] [place] [address]- 7821 14 Apr, 2013 [facility] [place] [facility] [address] [id number] [place] [address]- 8035 Apr, [facility] [place] [facility] [address] [id number] [place] [address]- 8913 Apr, [facility] [place] [facility] [address] [id number] [place] [address]- 1661 10 Apr, 2013 [facility] [place] [facility] [address] [id number] [place] [address]- 4700 Apr, [facility] [place] [facility] [address] [id number] [place] [address]- 0378 Apr, [facility] [place] [facility] [address] [id number] [place] [address]- 8574 Apr, [facility] [place] [facility] [address] [id number] [place] [address]- 6243 Apr, [facility] [place] [facility] [address] [id number] [place] [address]- 1377 Apr, [facility] [place] [facility] [address] [id number] [place] [address]- 0945 Mar, [facility] [place] [facility] [address] [id number] [place] [address]- 7701 Mar, [facility] [place] [facility] [address] [id number] [place] [address] Mar, [facility] [place] [facility] [address] [id number] [place] [address] Feb, [facility] [place] [facility] [address] [id number] [place] [address] Feb, [facility] [place] [facility] [address] [id number] [place] [address] Feb, [facility] [place] [facility] [address] [id number] [place] [address] Feb, [facility] [place] [facility] [address] [id number] [place] [address] Feb, [facility] [place] [facility] [address] [id number] [place] [address] Feb, [facility] [place] [facility] [address] [id number] [place] [address] Feb, [facility] [address] [id number] [place] [address] Feb, [facility] [place] [facility] [address] [id number] [place] [address] Feb, [facility] [place] [facility] [address] [id number] [place] [address] Feb, [facility] [place] [facility] [address] [id number] [place] [address] Jan, [facility] [address] [id number] [place] [address] Jan, [facility] [place] [facility] [address] [id number] [place] [address]28 Jan, [facility] [place] [facility] [address] [id number] [place] [address] Jan, [facility] [place] [facility] [address] [id number] [place] [address]- [address] Jan, [facility] [place] [facility] [address] [id number] [place] [address] Jan, [facility] [place] [facility] [address] [id number] [place] [address] Jan, [facility] [place] [facility] [address] [id number] [place] [address] 47[address] Jan, [facility] [place] [facility] [address] [id number] [place] [address] Jan, [facility] [place] [facility] [address] [id number] [place] [address] Jan, [facility] [place] [facility] [address] [id number] [place] [address] Jan, [facility] [place] [facility] [address] [id number] [place] [address] Jan, [facility] [place] [facility] [address] [id number] [place] [address]- [address] 16 Jan, 2013 [facility] [address] [id number] [place] [address] Jan, [facility] [address] [id number] [place] [address] Jan, [facility] [address] [id number] [place] [address] Jan, [facility] [place] [facility] [address] [id number] [place] [address] Jan, [facility] [address] [id number] [place] [address] Jan, [facility] [address] [id number] [place] [address] Jan, [facility] [address] [id number] [place] [address] 96[address] Jan, [facility] [place] [facility] [address] [id number] [place] [address] Jan, [facility] [address] [id number] [place] [address] Dec, [facility] [address] [id number] [place] [address]28 Dec, [facility] [address] [id number] [place] [address] 8067 Dec, [facility] [place] [facility] [address] [id number], [place] [address] Dec, [facility] [place] [facility] [address] [id number] [place] [address] Dec, [facility] [place] [facility] [address] [id number] [place] [address] Dec, [facility] [place] [facility] [address] [facility] [id number], [place] [address] Dec, [facility] [place] [facility] [address] [id number] [place] [address] Dec, [facility] [place] [facility] [address] [id number] [place] [address] Dec, [facility] [place] [facility] [address] [id number] [place] [address] 9426 Dec, [facility] [place] [facility] [address] [id number] [place] [address] Nov, [facility] [place] [facility] [address] [id number] [place] [address]- [address]186 Nov, [facility] [place] [facility] [address] [id number] [place] [address] Nov, [facility] [place] [facility] [address] [id number] [place] [address]- [address]146 Nov, [facility] [place] [facility] [address] [id number] [place] [address]- [address] Nov, [facility] [place] [facility] [address] [id number] [place] [address] Nov, [facility] [place] [facility] [address] [id number] [place] [address] 7974 Nov, [facility] [place] [facility] [address] [id number] [place] [address]- 5577 Nov, [facility] [place] [facility] [address] [id number] [place] [address]- 06[address] Nov, [facility] [place] [facility] [address] [id number] [place] [address]- [address]141 Nov, [facility] [place] [facility] [address] [id number] [place] [address] Oct, [facility] [place] [facility] [address] [id number] [place] [address] Oct, [facility] [place] [facility] [address] [id number] [place] [address]- [address] Oct, [facility] [address] [id number] [place] [address]169 Oct, [facility] [place] [facility] [address] [id number] [place] [address] Oct, [facility] [place] [facility] [address] [id number] [place] [address] Sep, [facility] [place] [facility] [address] [id number] [place] [address] 1716 Sep, [facility] [place] [facility] [address] [id number] [place] [address] 4[address] Aug, [facility] [place] [facility] [address] [id number] [place] [address] 1378 Aug, [facility] [place] [facility] [address] [id number] [place] [address]- [address] Aug, [facility] [place] [facility] [address] [id number] [place] [address] Aug, [facility] [place] [facility] [address] [id number] [place] [address]- [address] Aug, [facility] [place] [facility] [address] [id number] [place] [address]- [address]159 Aug, [facility] [place] [facility] [address] [id number] [place] [address]- [address] Aug, [facility] [place] [facility] [address] [id number], [place] [address] Jul, [facility] [place] [facility] [address] [id number] [place] [address] Jul, [facility] [place] [facility] [address] [id number] [place] [address] June, [facility] [place] [facility] [address] [id number] [place] [address] June, [facility] [place] [facility] [address] [id number] [place] [address] June, [facility] [address] [id number] [place] [address] June, [facility] [address] [id number] [place] [address] June, [facility] [address] [id number] [place] [address] June, [facility] [address] [id number] [place] [address] 3568 June, [facility] [address] [id number] [place] [address] 49[address] June, [facility] [address] [id number] [place] [address] 8570 June, [facility] [address] [id number] [place] [address] 2[address] June, [facility] [address] [id number] [place] [address] 2398 June, [facility] [address] [id number] [place] [address] 27[address] May, [facility] [address] [id number] [place] [address] May, [facility] [address] [id number] [place] [address] 9121 May, [facility] [address] [id number] [place] [address] 8363 May, [facility] [address] [id number] [place] [address] Apr, [facility] [address] [id number] [place] [address]- 0052 Apr, [facility] [address] [id number] [place] [address] 48[address] Apr, [facility] [address] [id number] [place] [address]268 Mar, [facility] [address] [id number] [place] [address]- 7353 Mar, [facility] [address] [id number] [place] [address]- 5036 Feb, [facility] [address] [id number] [place] [address]- [address] Feb, [facility] [address] [id number] [place] [address]- 50[address] Feb, [facility] [address] [id number] [place] [address]- 6[address] Feb, [facility] [address] [id number] [place] [address]- 6973 Feb, [facility] [address] [id number] [place] [address]- 1022 Feb, [facility] [address] [id number] [place] [address]- 1033 Feb, [facility] [address] [id number] [place] [address]228 Jan, [facility] [address] [id number] [place] [address]- 3594 Jan, [facility] [address] [id number], [place] [address] Jan, [facility] [place] [facility] [address] [id number] [place] [address]- 64[address] Jan, [facility] [place] [facility] [address] [id number] [place] [address]- 2656 Jan, [facility] [place] [facility] [address] [id number] [place] [address]- 5076 Jan, [facility] [place] [facility] [address] [id number], [place] [address]- [address] Jan, [facility] [place] [facility] [address] [id number] [place] [address]- 7136 Jan, [facility] [place] [facility] [address] [id number] [place] [address]- 9916 Jan, [facility] [place] [facility] [address] [facility] [id number] [place] [address]- 4[address] Jan, [facility] [place] [facility] [address] [id number] [place] [address]- 66[address] Jan, [facility] [place] [facility] [address] [id number] [place] [address]- 0695 Dec, [facility] [place] [facility] [address] [id number] [place] [address]- 2005 Dec, [facility] [place] [facility] [address] [id number] [place] [address] Dec, [facility] [place] [facility] [address] [facility] [id number] [place] [address]- 4853 Dec, [facility] [place] [facility] [address] [id number] [place] [address]- 3616 Nov, [facility] [place] [facility] [address] [facility] [id number] [place] [address]- 9644 Nov, [facility] [place] [facility] [address] [facility] [id number], [place] [address] 08 Nov, 2011 [facility] [place] [facility] [address] [facility] [id number], [place] [address]- [address] 27 Oct, 2011 [facility] [place] [facility] [address] [id number] [place] [address]- 9582 24 Oct, 2011 [facility] [place] [facility] [address] [facility] [id number] [place] [address]- 3571 21 Oct, 2011 [facility] [place] [facility] [address] [facility] [id number] [place] [address]- 5429 10 Oct, 2011 [facility] [place] [facility] [address] [id number] [place] [address]- 3826 07 Oct, 2011 [facility] [place] [facility] [address] [id number] [place] [address]- 6016 04 Oct, 2011 [facility] [place] [facility] [address] [id number] [place] [address] 2546 Oct, [facility] [place] [facility] [address] [id number] [place] [address]- 5226 Sep, [facility] [place] [facility] [address] [id number] [place] [address]- 3853 Sep, [facility] [place] [facility] [address] [id number] [place] [address]- 3426 Sep, [facility] [place] [facility] [address] [id number] [place] [address]- 4421 Sep, [facility] [place] [facility] [address] [id number] [place] [address]- 2720 Sep, [facility] [place] [facility] [address] [id number] [place] [address]- 0347 Aug, [facility] [place] [facility] [address] [id number] [place] [address]- 7616 Aug, [facility] [place] [facility] [address] [id number] [place] [address]- 6177 Aug, [facility] [place] [facility] [address] [id number] [place] [address]- 5840 16 Aug, 2011 [facility] [place] [facility] [address] [id number] [place] [address]- 2546 Aug, [facility] [place] [facility] [address] [id number] [place] [address]- 4656 Aug, [facility] [place] [facility] [address] [id number] [place] [address]- 2546 Aug, [facility] [place] [facility] [address] [id number] [place] [address]- 4384 28 Jul, 2011 [facility] [place] [facility] [address] [id number] [place] [address]- 4833 Jul, [facility] [place] [facility] [address] [id number] [place] [address]- 5510 22 Jul, 2011 [facility] [place] [facility] [address] [id number] [place] [address]- 1230 Jul, [facility] [place] [facility] [address] [id number] [place] [address]- 0759 12 Jul, 2011 [facility] [place] [facility] [address] [id number] [place] [address]- 2443 Jul, [facility] [place] [facility] [address] [id number] [place] [address]- 6401 07 Jul, 2011 [facility] [place] [facility] [address] [id number] [place] [address]- 9362 06 Jul, 2011 [facility] [place] [facility] [address] [id number] [place] [address]- 3607 05 Jul, 2011 [facility] [place] [facility] [address] [id number] [place] [address]- 1603 June, [facility] [place] [facility] [address] [id number] [place] [address]- 2607 June, [facility] [place] [facility] [address] [id number] [place] [address]- 9010 June, [facility] [place] [facility] [address] [id number] [place] [address]- 9011 June, [facility] [place] [facility] [address] [id number] [place] [address]- 7817 June, [facility] [place] [facility] [address] [id number] [place] [address]- 6436 June, [facility] [place] [facility] [address] [id number] [place] [address]- 8409 June, [facility] [place] [facility] [address] [id number] [place] [address]- 0139 June, [facility] [address] [id number] [place] [address]- 0790 25 May, 2011 [facility] [place] [facility] [address] [id number] [place] [address]- 4676 23 May, 2011 [facility] [address] [id number] [place] [address]- 6306 May, [facility] [place] [facility] [address] [id number] [place] [address]- 7606 May, [facility] [place] [facility] [address] [id number] [place] [address]- 4751 May, [facility] [place] [facility] [address] [id number] [place] [address]- 5376 May, [facility] [address] [id number] [place] [address]- 7544 May, [facility] [place] [facility] [address] [id number] [place] [address]- 0897 Apr, [facility] [place] [facility] [address] [id number] [place] [address]- 0410 Apr, [facility] [place] [facility] [address] [id number] [place] [address]- 9067 Apr, [facility] [place] [facility] [address] [id number] [place] [address]- 5072 Apr, [facility] [place] [facility] [address] [id number] [place] [address]- 6272 Apr, [facility] [place] [facility] [address] [id number] [place] [address]- 7027 Apr, [facility] [place] [facility] [address] [id number] [place] [address]- 8576 Apr, [facility] [place] [facility] [address] [id number] [place] [address]- 9463 Mar, [facility] [place] [facility] [address] [id number] [place] [address]- 0715 20 Mar, 2011 [facility] [place] [facility] [address] [id number] [place] [address]- 8576 14 Mar, 2011 [facility] [place] [facility] [address] [id number] [place] [address]- 0276 Mar, [facility] [place] [facility] [address] [id number] [place] [address]- 7236 Mar, [facility] [address] [id number] [place] [address]- 8392 Mar, [facility] [place] [facility] [address] [id number] [place] [address]- 3938 Mar, [facility] [place] [facility] [address] [id number] [place] [address]- 6726 Feb, [facility] [place] [facility] [address] [id number] [place] [address]- 4657 Feb, [facility] [place] [facility] [address] [id number] [place] [address]- 0307 Feb, [facility] [place] [facility] [address] [id number] [place] [address]- 0820 Feb, [facility] [place] [facility] [address] [id number] [place] [address]- 7746 Feb, [facility] [place] [facility] [address] [id number], [place] [address]- 9014 Feb, [facility] [place] [facility] [address] [id number] [place] [address]- 1830 Feb, [facility] [place] [facility] [address] [id number] [place] [address]- 2461 Feb, [facility] [place] [facility] [address] [id number] [place] [address]- 4053 Feb, [facility] [place] [facility] [address] [id number] [place] [address]- 3742 Feb, [facility] [address] [id number] [place] [address]- 2520 Jan, [facility] [place] [facility] [address] [id number] [place] [address]- 3296 Jan, [facility] [place] [facility] [address] [id number] [place] [address]- 4506 Jan, [facility] [place] [facility] [address] [id number] [place] [address]- 4251 Jan, [facility] [place] [facility] [address] [id number] [place] [address]- 1926 Jan, [facility] [place] [facility] [address] [id number] [place] [address]- 0224 Jan, [facility] [place] [facility] [address] [id number] [place] [address]- 6553 15 Jan, 2011 [facility] [place] [facility] [address] [id number] [place] [address]- 0788 15 Jan, 2011 [facility] [place] [facility] [address] [id number] [place] [address]- 7307 Jan, [facility] [place] [facility] [address] [id number] [place] [address]- 7611 Jan, [facility] [place] [facility] [address] [id number] [place] [address]- 1957 Jan, [facility] [place] [facility] [address] [id number] [place] [address]- 6299 Dec, [facility] [place] [facility] [address] [id number] [place] [address]- 5872 Dec, [facility] [place] [facility] [address] [id number] [place] [address]- 7640 17 Dec, 2010 [facility] [place] [facility] [address] [id number] [place] [address]- 0330 16 Dec, 2010 [facility] [place] [facility] [address] [id number] [place] [address]- 0688 14 Dec, 2010 [facility] [place] [facility] [address] [id number] [place] [address]- 5730 09 Dec, 2010 [facility] [place] [facility] [address] [id number] [place] [address]- 5019 08 Dec, 2010 [facility] [place] [facility] [address] [id number] [place] [address]- 4750 Dec, [facility] [place] [facility] [address] [id number] [place] [address]- 8513 Dec, [facility] [place] [facility] [address] [id number] [place] [address]- 3153 Nov, [facility] [place] [facility] [address] [id number] [place] [address]- 4751 Nov, [facility] [place] [facility] [address] [id number] [place] [address]- 1691 Nov, [facility] [place] [facility] [address] [id number] [place] [address]- 9088 Nov, [facility] [place] [facility] [address] [id number] [place] [address]- 7363 24 Nov, 2010 [facility] [place] [facility] [address] [id number] [place] [address]- 2983 Nov, [facility] [place] [facility] [address] [id number] [place] [address]- 3262 Aug, [facility] [place] [facility] [address] [id number] [place] [address]- 7687 14 Feb, 2010 [facility] [place] [facility] [address] [id number] [place] [address]- 0927 14 Jan, 2010 [facility] [place] [facility] [address] [id number] [place] [address] 06 Jan, 2010 [facility] [place] [facility] [address] [id number] [place] [address]- 9332 Jan, [facility] [address] [id number], [place] [address] 2825 Jan, [facility] [id number], [place] [address]- 7616 Jan, [facility] [id number], [place] [address]- 2712 Dec, [facility] [id number], [place] [address]- 3026 Dec, [facility] [id number], [place] [address]- 7335 Dec, [facility] [id number] [place] [address]- 5757 Dec, [facility] [id number], [place] [address]- 5506 Nov, [facility] [id number], [place] [address]- 3830 Nov, [facility] [id number] [address]649 Nov, IMMUNIZATIONS Vaccine Route Administration Date Status KINRIX (DTaP/IPV) Unknown Jan 15, 2017 Administered SOCIAL HISTORY Never Assessed REASON FOR VISIT Hep C med note PLAN OF CARE VITAL SIGNS MEDICATIONS [...]
--- OUTSIDE RECORDS SUMMARY | 2018-01-13 21:39 | XMS REPORT ---
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 Active 95507848 Problem Unspecified episodic mood disorder F39 Active 23017740 Problem Hypertension I10 Active 15874602 Problem Venous insufficiency (chronic) (peripheral) I87.2 Active 627304657 Problem Gastroesophageal reflux disease, esophagitis presence not specified K21.9 Active 344791714 Problem Other chronic pain G89.29 Active 29307481 Problem Chronic hepatitis C without hepatic coma B18.2 Active 550535227 Problem Other psychoactive substance dependence, uncomplicated F19.20 Active 3922591 Problem 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, 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 831017042 ALLERGIES No Information ENCOUNTERS Encounter Location Date Diagnosis [facility] [id number] [place] [address] 55394- 8060 Jul, [facility] [id number] [place] [address] 03171- 1802 Jul, [facility] [id number] [place] [address] 16170- 6335 June, Gastroesophageal reflux disease, esophagitis presence not specified K21.9 [facility] [id number] [place] [address] 71348- 6549 June, [facility] [id number] [place] [address] 36349- 2667 June, [facility] [address] [address] 7532 June, Arthritis M19.90 [facility] [address] [address] 6[address] June, [facility] [address] [address] 1810 June, [facility] [id number] [place] [address] 40776- 9122 June, Unspecified episodic mood disorder F39 [facility] [id number] [place] [address] 54882- 1372 May, Unspecified episodic mood disorder F39 [facility] [address] [address] 9871 May, [facility] [id number] [place] [address] 04007- 3260 May, Arthritis M19.90 [facility] [id number] [place] [address] 86750 -4820 May, Dysuria R30.0 ; Abscess L02.91 and Acute cystitis without hematuria N30.00 [facility] [address] [address] 9201 May, 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 ; Unspecified episodic mood disorder F39 ; Combined drug dependence excluding opioids, 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 ; Anxiety F41.9 and Other psychoactive substance dependence, uncomplicated F19.20 [facility] [address] [address] 8017 May, [facility] [address] [place] [address] 15110- 1964 May, Other disorder of impulse control 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 ; Unspecified episodic mood disorder F39 ; Combined drug dependence excluding opioids, 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 ; Other psychoactive substance dependence, uncomplicated F19.20 and Anxiety F41.9 [facility] [id number] [place] [address] 27445- 0520 May, Other chronic pain G89.29 ; Left hip pain M25.552 ; Hypertension I10 ; 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, 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 and Unspecified episodic mood disorder F39 [facility] [id number] [place] [address] 98414- 1606 Apr, [facility] [id number] [place] [address] 58728 -8857 Apr, Neck pain M54.2 ; Left hip pain M25.552 and Fall, initial encounter W19.XXXA [facility] [address] 34469- 7018 Apr, Unspecified episodic mood disorder F39 ; Combined drug dependence excluding opioids, 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 ; Anxiety F41.9 ; Other psychoactive substance dependence, uncomplicated F19.20 and Other disorder of impulse control F63.89 [facility] [id number] [place] [address] 97878- 0162 Apr, [facility] [id number] [place] [address] 95327- 8720 Apr, Arthritis M19.90 and Unspecified episodic mood disorder F39 [facility] [id number] [place] [address] 24561- 1567 Apr, Unspecified episodic mood disorder F39 [facility] [id number] [place] [address] 22048- 4280 Apr, [facility] [id number] [place] [address] 97194- 6951 08 Apr, 2017 [facility] [id number] [place] [address] 09796- 4211 07 Apr, 2017 Unspecified episodic mood disorder F39 ; Combined drug dependence excluding opioids, 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 ; Anxiety F41.9 ; Other psychoactive substance dependence, uncomplicated F19.20 and Other disorder of impulse control F63.89 [facility] [id number] [place] [address] 94733- 1426 Mar, Unspecified episodic mood disorder F39 [facility] [id number] [place] [address] 71824- 1986 Mar, Gastroesophageal reflux disease, esophagitis presence not specified K21.9 [facility] [address] 74402- 4557 Mar, Arthritis M19.90 and Unspecified episodic mood disorder F39 [facility] [id number] [place] [address] 25471- 5926 Feb, [facility] [id number] [place] [address] 55400- 1945 Feb, [facility] [id number] [place] [address] 93317- 9446 Feb, [facility] [id number] [place] [address] 94266- 5371 Feb, Arthritis M19.90 [facility] [id number] [place] [address] 60256- 8880 Feb, Non-pressure chronic ulcer of right calf, 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 ; Unspecified episodic mood disorder F39 and Left hip pain M25.552 [facility] [id number] [place] [address] 23924- 8149 Feb, [facility] [id number] [place] [address] 70986- 2546 Feb, [facility] [id number] [place] [address] 19788- 9786 Jan, Arthritis M19.90 [facility] [id number] [place] [address] 32527- 2041 Jan, Left hip pain M25.552 and Non-pressure chronic ulcer of right calf, 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 [facility] [address], [place] [address] 3709 Jan, Chronic hepatitis C without hepatic coma B18.2 [facility] [id number] [place] [address] 11117- 4914 Jan, Encounter for immunization Z23 ; Venous insufficiency ( chronic) (peripheral) I87.2 ; Non-pressure chronic ulcer of unspecified calf limited to breakdown of skin L97.201 and Gastroesophageal reflux disease, esophagitis presence not specified K21.9 [facility] [id number] [place] [address] 65576- 3668 Jan, [facility] [id number] [place] [address] 52339- 2718 Jan, Chronic hepatitis C without hepatic coma B18.2 and Encounter for immunization Z23 [facility] [id number] [place] [address] 73039- 2909 Jan, Arthritis M19.90 [facility] [id number] [place] [address] 87186- 3996 Jan, [facility] [id number] [place] [address] 34824- 9367 Dec, [facility] [id number] [place] [address] 19452- 6874 Dec, Unspecified episodic mood disorder F39 [facility] [address] [place] [address] 14438- 7781 Dec, Arthritis M19.90 [facility] [address] [place] [address] 14063- 3426 Dec, Arthritis M19.90 [facility] [address] [place] [address] 56077- 6327 Nov, [facility] [address] [address]- 6380 Nov, [facility] [id number] [place] [address] 78438- 0154 Nov, Other psychoactive substance dependence, uncomplicated F19.20 ; 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, 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 and Chronic hepatitis C without hepatic coma B18.2 [facility] [address] [place] [address] 00534- 1981 Nov, Arthritis M19.90 [facility] [id number] [place] [address] 68081 -4106 Oct, Partial thickness burn of abdomen, initial encounter T21.22XA [facility] [id number] [place] [address] 34361- 6052 Oct, [facility] [id number] [place] [address] 27249- 5547 Sep, Arthritis M19.90 [facility] [id number] [place] [address] 02184- 7411 Sep, [facility] [id number] [place] [address] 01248- 2560 Sep, [facility] [id number] [place] [address] 49334- 6124 Sep, Unspecified episodic mood disorder F39 ; Chronic hepatitis C without hepatic coma B18.2 and Left hip pain M25.552 [facility] [id number] [place] [address] 80286- 4118 Sep, Arthritis M19.90 and Left hip pain M25.552 [facility] [id number] [place] [address] 40718- 9985 Aug, [facility] [id number] [place] [address] 47124- 1735 Aug, [facility] [id number] [place] [address] 85847- 5500 Aug, Chronic hepatitis C without hepatic coma B18.2 [facility] [id number] [place] [address] 52683- 6270 Aug, [facility] [id number] [place] [address] 86590- 6877 Aug, Chronic hepatitis C without hepatic coma B18.2 [facility] [id number] [place] [address] 38139- 7061 Aug, 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, 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 [facility] [id number] [place] [address] 79312- 6064 Aug, [facility] [id number] [place] [address] 64699- 3018 Aug, Chronic hepatitis C without hepatic coma B18.2 and Hypertension I10 [facility] [id number] [place] [address] 43909- 7334 Jul, [facility] [id number] [place] [address] 97505- 1404 June, [facility] [id number] [place] [address] 90377- 3648 Apr, Fibromyalgia M79.7 ; Left hip pain M25.552 and Decubitus ulcer of sacral region, stage 1 L89.151 [facility] [id number] [place] [address] 13702- 2421 Apr, [facility] [id number] [place] [address] 95865- 2941 Apr, [facility] [id number] [place] [address] 56700- 2537 Feb, [facility] [id number] [place] [address] 80766- 8516 Dec, Anxiety F41.9 ; Combined drug dependence excluding opioids, 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 and Unspecified episodic mood disorder F39 [facility] [id number] [place] [address] 85283- 2588 Dec, [facility] [address], [place] [address]- 5011 Nov, [facility] [id number] [place] [address] 19003- 7938 Nov, [facility] [address] [place] [address] 21933- 2982 Nov, Other disorder of impulse control F63.89 and Anxiety F41.9 [facility] [id number] [place] [address] 08584- 4682 Oct, [facility] [id number] [place] [address] 39530 -8275 Oct, Open wound of left thigh, initial encounter S71.102A [facility] [id number] [place] [address] 48023- 1222 Oct, [facility] [id number] [place] [address] 42453- 7723 Sep, Unspecified episodic mood disorder F39 ; Other disorder of impulse control 312.39 ; Combined drug dependence excluding opioids, 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 and Anxiety F41.9 [facility] [address] [place] [address] 38622- 6728 Sep, Other disorder of impulse control 312.39 ; Combined drug dependence excluding opioids, 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 ; Anxiety F41.9 and Unspecified episodic mood disorder F39 [facility] [address] [place] [address] 15421- 0123 Sep, Other chronic pain G89.29 [facility] [address] [place] [address] 48314- 7747 Sep, [facility] [address] [place] [address] 40190- 4596 Sep, [facility] [address], [place] [address]- 1896 Aug, [facility] [address], [place] [address]- 7293 Aug, [facility] [address] [place] [address] 00396- 9488 Aug, [facility] [id number] [place] [address] 47488- 5428 Jul, [facility] [id number] [place] [address] 18323- 3984 Jul, [facility] [id number] [place] [address] 43486- 6353 Jul, [facility] [id number] [place] [address] 28215- 8467 Jul, Arthritis M19.90 ; Chronic hepatitis C without hepatic coma B18.2 and Left hip pain M25.552 [facility] [id number] [place] [address] 21753- 0130 Jul, Left knee pain M25.562 [facility] [id number] [place] [address] 81260- 3792 Jul, Combined drug dependence excluding opioids, 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 ; Anxiety F41.9 ; Other disorder of impulse control 312.39 and Unspecified episodic mood disorder F39 [facility] [address], [place] [address]- 9044 Jul, Left knee pain M25.562 [facility] [id number] [place] [address] 05632- 9200 Jul, Left knee pain M25.562 and Left hip pain M25.552 [facility] [id number] [place] [address] 84612- 9104 Jul, [facility] [id number] [place] [address] 93104- 3279 June, [facility] [address] [place] [address] 90155- 4424 June, Combinations of drug dependence excluding opioid type drug, unspecified abuse 304.80 ; Other disorder of impulse control 312.39 ; Unspecified episodic mood disorder F39 and Anxiety F41.9 [facility] [id number] [place] [address] 98035- 3591 June, Other fatigue R53.83 ; Headache R51 and Left knee pain M25.562 [facility] [id number] [place] [address] 18876- 1758 June, Unspecified episodic mood disorder F39 ; Combinations of drug dependence excluding opioid type drug, unspecified abuse 304.80 ; Other disorder of impulse control 312.39 and Anxiety F41.9 [facility] [id number] [place] [address] 92789- 0294 June, Anxiety F41.9 [facility] [id number] [place] [address] 85546- 7335 June, Pain in left knee M25.562 [facility] [id number] [place] [address] 45346- 8710 June, Anxiety F41.9 and Combinations of drug dependence excluding opioid type drug, unspecified abuse 304.80 [facility] [id number] [place] [address] 43944- 2706 June, Unspecified episodic mood disorder 296.90 ; Combinations of drug dependence excluding opioid type drug, unspecified abuse 304.80 and Other disorder of impulse control 312.39 [facility] [id number] [place] [address] 71062- 2155 June, Anxiety F41.9 and Unspecified episodic mood disorder 296.90 [facility] [id number] [place] [address] 84901- 6914 May, Arthritis M19.90 [facility] [id number] [place] [address] 04649- 8404 May, Arthritis M19.90 [facility] [id number] [place] [address] 45420- 2765 May, Anxiety F41.9 ; Combinations of drug dependence excluding opioid type drug, unspecified abuse 304.80 and Other disorder of impulse control 312.39 [facility] [address], [place] [address]- 2630 18 May, 2015 Left knee pain M25.562 [facility] [address] [place] [address] 75377- 1467 14 May, 2015 Arthritis M19.90 [facility] [id number] [place] [address] 02398- 3933 May, [facility] [address] [place] [address] 22320- 7075 May, Anxiety F41.9 ; Unspecified episodic mood disorder 296.90 ; Combinations of drug dependence excluding opioid type drug, unspecified abuse 304.80 and Other disorder of impulse control 312.39 [facility] [address] [place] [address] 02931- 6202 May, Left knee pain M25.562 [facility] [address] [place] [address] 54119- 0145 May, Left knee pain M25.562 ; Combinations of drug dependence excluding opioid type drug, unspecified abuse 304.80 ; Other disorder of impulse control 312.39 ; Fibromyalgia M79.7 ; Hypertension I10 ; Unspecified episodic mood disorder 296.90 and Left hip pain M25.552 [facility] [address] [place] [address] 08075- 1453 May, Unspecified episodic mood disorder 296.90 ; Other disorder of impulse control 312.39 ; Combinations of drug dependence excluding opioid type drug, unspecified abuse 304.80 and Anxiety F41.9 [facility] [address] [place] [address] 67019- 3174 May, Left knee pain M25.562 ; Combinations of drug dependence excluding opioid type drug, unspecified abuse 304.80 ; Other disorder of impulse control 312.39 ; Fibromyalgia M79.7 ; Hypertension I10 ; Unspecified episodic mood disorder 296.90 and Left hip pain M25.552 [facility] [address] [place] [address] 97891- 9426 May, Anxiety F41.9 ; Unspecified episodic mood disorder 296.90 ; Other disorder of impulse control 312.39 and Combinations of drug dependence excluding opioid type drug, unspecified abuse 304.80 [facility] [id number] [place] [address] 73184- 1508 30 Apr, 2015 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 and 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, implants and grafts, initial encounter T84.82XA [facility] [id number] [place] [address] 65034- 2758 Apr, Anxiety F41.9 ; Unspecified episodic mood disorder 296.90 ; Combinations of drug dependence excluding opioid type drug, unspecified abuse 304.80 and Other disorder of impulse control 312.39 [facility] [id number] [place] [address] 89654- 4163 Apr, Arthritis M19.90 [facility] [id number] [place] [address] 64693- 6520 Apr, Anxiety F41.9 ; Unspecified episodic mood disorder 296.90 ; Combinations of drug dependence excluding opioid type drug, unspecified abuse 304.80 and Other disorder of impulse control 312.39 [facility] [id number] [place] [address] 31116- 0438 17 Apr, 2015 Arthritis M19.90 [facility] [id number] [place] [address] 68396- 3366 15 Apr, 2015 [facility] [id number] [place] [address] 01744- 9972 Apr, [facility] [id number] [place] [address] 76909- 2366 14 Apr, 2015 Unspecified episodic mood disorder 296.90 ; Combinations of drug dependence excluding opioid type drug, unspecified abuse 304.80 ; Other disorder of impulse control 312.39 and Anxiety F41.9 [facility] [address] [place] [address] -2728 Apr, Left knee pain M25.562 [facility] [id number] [place] [address] 45947- 0390 Apr, [facility] [id number] [place] [address] 25801- 8906 Mar, Unspecified episodic mood disorder 296.90 ; Anxiety F41.9 ; Other disorder of impulse control 312.39 and Combinations of drug dependence excluding opioid type drug, unspecified abuse 304.80 [facility] [id number] [place] [address] 463876- 5666 Mar, Hyperpigmentation L81.9 [facility] [id number] [place] [address] 79876- 1259 Mar, Arthritis M19.90 and Anxiety F41.9 [facility] [id number] [place] [address] 17564- 1582 Mar, Unspecified episodic mood disorder F39 ; Combined drug dependence excluding opioids, 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 ; Other disorder of impulse control F63.89 and Anxiety F41.9 [facility] [address] [place] [address] 72744- 2534 12 Mar, 2015 Well woman exam Z01.419 ; Other fatigue R53.83 ; Hot flashes N95.1 ; Depression, unspecified depression type F32.9 and Body mass index (BMI) of 23.0-23.9 in adult Z68.23 [facility] [address] [place] [address] 82884- 1220 11 Mar, 2015 Unspecified episodic mood disorder 296.90 ; Other disorder of impulse control 312.39 and Anxiety F41.9 [facility] [address] [place] [address] 30819- 8765 11 Mar, 2015 Well woman exam Z01.419 [...] breast Z12.39 and Limited mobility Z74.[address] 48934- 1324 Mar, [facility] [address] 31761- 2600 Mar, [address] 46440- 5807 Mar, [facility] [address] 62438- 5739 Mar, Other specified complication of internal orthopedic prosthetic devices, implants and grafts, initial encounter T84.89XA ; Fibromyalgia M79.7 ; Hypertension I10 ; Anemia D64.9 ; Insomnia G47.00 ; Anxiety F41.9 ; Arthritis M19.90 and Migraine G43.[address] 71712- 7938 Mar, [facility] [address] 72200- 9040 Feb, [address] 64885- 8759 Feb, Arthritis M19.90 and Anxiety F41.9 [facility] [address] 54422- 4739 Feb, [facility] [address] 71309- 6361 Feb, [facility] [address] [address]- 7544 Feb, [facility] [id number] [place] [address] 92891- 9071 Feb, [facility] [id number] [place] [address] 23907- 7785 Feb, Anxiety F41.9 [facility] [address] [id number] [place] [address] 04447- 4865 15 Feb, 2015 [facility] [id number] [place] [address] 59866- 7007 Feb, [facility] [id number] [place] [address] 09691- 7350 Feb, 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 and Fibromyalgia M79.7 [facility] [id number] [place] [address] 87156- 9251 Feb, [facility] [id number] [place] [address] 50569- 2064 Jan, [facility] [id number] [place] [address] 63181- 7336 Jan, [facility] [id number] [address] 8427 Jan, [facility] [address], [place] [address]- 3075 24 Jan, 2015 [facility] [address], [place] [address]- 1791 16 Jan, 2015 [facility] [id number] [place] [address] 53748- 7868 08 Jan, 2015 [facility] [address], [place] [address]- 8669 07 Jan, 2015 [facility] [id number] [place] [address] 00718- 9789 Jan, [facility] [address], [place] [address]- 7812 Dec, [facility] [id number] [place] [address] 94949- 9748 Dec, Left knee pain M25.562 [facility] [id number] [place] [address] 229184- 9529 Dec, Left knee pain M25.562 [facility] [id number] [place] [address] 27733- 6808 Dec, Fibromyalgia M79.7 ; Hypertension I10 and Arthritis M19.90 [facility] [id number] [place] [address] 25663- 6106 Dec, [facility] [id number] [place] [address] 66197- 1219 Dec, [facility] [id number] [place] [address] 75748- 8978 Dec, [facility] [id number] [place] [address] 64094- 7517 Dec, [facility] [id number] [address]- 1116 Nov, [facility] [address], [place] [address]- 5441 Nov, [facility] [address], [place] [address]- 5845 Nov, [facility] [address], [place] [address]- 1343 Nov, Hypertension I10 [facility] [address], [place] [address]- 0670 Oct, [facility] [address], [place] [address]- 9111 Oct, [facility] [id number] [place] [address]- 9401 Oct, [facility] [address] [id number] [place] [address]- 3178 Oct, [facility] [place] [facility] [address] [id number] [place] [address]- 0956 Oct, [facility] [address] [id number] [place] [address]- 1692 Sep, [facility] [place] [facility] [address] [id number] [place] [address]- 7471 Sep, [facility] [address] [id number], [place] [address]- 6168 Sep, Hip pain associated with recalled total hip arthroplasty hardware 996.77 [facility] [place] [facility] [address] [id number] [place] [address]- 9967 Sep, [facility] [address] [id number], [place] [address]- 2672 Sep, [facility] [address] [id number], [place] [address]- 5675 Sep, [facility] [address] [facility] [id number], [place] [address]- 2288 Aug, [facility] [address] [facility] [id number], [place] [address]- 3618 Jul, [facility] [place] [facility] [address] [id number], [place] [address]- 7945 June, [facility] [place] [facility] [address] [id number] [place] [address]- 2661 June, [facility] [place] [facility] [address] [id number], [place] [address]- 1532 June, [facility] [place] [facility] [address] [facility] [id number], [place] [address]- 0423 June, [facility] [place] [facility] [address] [id number] [place] [address]- 6115 June, [facility] [place] [facility] [address] [id number] [place] [address]- 0985 June, [facility] [place] [facility] [address] [id number] [place] [address]- 6712 May, [facility] [place] [facility] [address] [id number] [place] [address]- 0890 May, [facility] [place] [facility] [address] [id number] [place] [address]- 4965 May, [facility] [place] [facility] [address] [id number] [place] [address]- 1796 Apr, [facility] [place] [facility] [address] [id number] [place] [address]- 5204 Apr, [facility] [place] [facility] [address] [id number] [place] [address]- 1249 Apr, [facility] [place] [facility] [address] [id number] [place] [address]- 8291 Apr, [facility] [place] [facility] [address] [id number] [place] [address]- 9541 Apr, [facility] [place] [facility] [address] [id number] [place] [address]- 8773 Apr, [facility] [place] [facility] [address] [id number] [place] [address]- 9806 Apr, [facility] [place] [facility] [address] [id number] [place] [address]- 7009 Apr, [facility] [place] [facility] [address] [id number] [place] [address]- 2405 10 Apr, 2014 [facility] [place] [facility] [address] [id number] [place] [address]- 8608 05 Apr, 2014 [facility] [place] [facility] [address] [id number] [place] [address]- 9222 05 Apr, 2014 [facility] [place] [facility] [address] [id number] [place] [address]- 5075 Mar, 2014 [facility] [place] [facility] [address] [id number] [place] [address]- 3061 Mar, 2014 [facility] [place] [facility] [address] [id number] [place] [address]- 4682 16 Mar, 2014 [facility] [place] [facility] [address] [id number] [place] [address]- 5833 Mar, 2014 [facility] [place] [facility] [address] [id number] [place] [address]- 2871 Mar, [facility] [place] [facility] [address] [id number] [place] [address]- 1387 Mar, [facility] [place] [facility] [address] [facility] [id number] [place] [address]- 2143 Feb, [facility] [place] [facility] [address] [id number] [place] [address]- 5395 Feb, [facility] [place] [facility] [address] [id number] [place] [address]- 0098 Feb, [facility] [place] [facility] [address] [facility] [id number] [place] [address]- 4619 Feb, [facility] [place] [facility] [address] [facility] [id number] [place] [address]- 2486 Jan, [facility] [place] [facility] [address] [id number], [place] [address]- 4591 Jan, [facility] [place] [facility] [address] [id number] [place] [address]- 0071 Jan, [facility] [place] [facility] [address] [id number] [place] [address]- 6000 Jan, [facility] [place] [facility] [address] [id number], [place] [address]- 0416 Dec, [facility] [place] [facility] [address] [id number], [place] [address]- 0580 Dec, [facility] [place] [facility] [address] [id number] [place] [address]- 1574 Dec, [facility] [place] [facility] [address] [id number] [place] [address]- 7499 Dec, [facility] [place] [facility] [address] [id number] [place] [address]- 4063 Dec, [facility] [place] [facility] [address] [id number] [place] [address]- 0176 Dec, [facility] [place] [facility] [address] [id number] [place] [address]- 0748 Dec, [facility] [place] [facility] [address] [id number] [place] [address]- 0825 Dec, [facility] [place] [facility] [address] [facility] [id number] [place] [address]- 7973 Dec, [facility] [place] [facility] [address] [facility] [id number] [place] [address]- 4183 Dec, [facility] [place] [facility] [address] [facility] [id number] [place] [address]- 9109 Dec, [facility] [place] [facility] [address] [facility] [id number] [place] [address]- 9633 Nov, [facility] [place] [facility] [address] [id number], [place] [address]- 7581 Nov, [facility] [place] [facility] [address] [id number], [place] [address]- 2873 28 Nov, 2013 [facility] [place] [facility] [address] [id number] [place] [address]- 6615 17 Nov, 2013 [facility] [place] [facility] [address] [facility] [id number] [place] [address]- 2458 17 Nov, 2013 [facility] [place] [facility] [address] [facility] [id number], [place] [address]- 3991 15 Nov, 2013 [facility] [place] [facility] [address] [id number] [place] [address]- 0626 15 Nov, 2013 [facility] [place] [facility] [address] [id number] [place] [address]- 7265 15 Nov, 2013 [facility] [place] [facility] [address] [id number] [place] [address]- 2473 15 Nov, 2013 [facility] [place] [facility] [address] [id number] [place] [address]- 5059 14 Nov, 2013 [facility] [place] [facility] [address] [id number] [place] [address]- 1897 14 Nov, 2013 [facility] [place] [facility] [address] [id number] [place] [address]- 3436 14 Nov, 2013 [facility] [place] [facility] [address] [id number] [place] [address]- 3583 14 Nov, 2013 [facility] [place] [facility] [address] [id number] [place] [address]- 3361 13 Nov, 2013 [facility] [place] [facility] [address] [id number] [place] [address]- 7000 13 Nov, 2013 [facility] [place] [facility] [address] [id number] [place] [address]- 0196 11 Nov, 2013 [facility] [place] [facility] [address] [id number] [place] [address]- 0676 11 Nov, 2013 [facility] [place] [facility] [address] [id number] [place] [address]- 5305 07 Nov, 2013 [facility] [place] [facility] [address] [id number] [place] [address]- 3629 07 Nov, 2013 [facility] [place] [facility] [address] [id number] [place] [address]- 2017 07 Nov, 2013 [facility] [place] [facility] [address] [id number] [place] [address]- 8311 07 Nov, 2013 [facility] [place] [facility] [address] [id number] [place] [address]- 6577 30 Oct, 2013 [facility] [place] [facility] [address] [id number] [place] [address]- 8233 30 Oct, 2013 [facility] [place] [facility] [address] [id number] [place] [address]- 0432 26 Oct, 2013 [facility] [place] [facility] [address] [id number] [place] [address]- 1285 26 Oct, 2013 [facility] [place] [facility] [address] [id number] [place] [address]- 9057 22 Oct, 2013 [facility] [place] [facility] [address] [id number] [place] [address]- 7297 22 Oct, 2013 [facility] [place] [facility] [address] [id number] [place] [address]- 4427 18 Oct, 2013 [facility] [place] [facility] [address] [id number] [place] [address]- 2390 18 Oct, 2013 [facility] [place] [facility] [address] [id number] [place] [address]- 9526 18 Oct, 2013 [facility] [place] [facility] [address] [id number] [place] [address]- 4145 18 Oct, 2013 [facility] [place] [facility] [address] [id number] [place] [address]- 0235 12 Oct, 2013 [facility] [place] [facility] [address] [id number] [place] [address]- 2104 Oct, 2013 [facility] [place] [facility] [address] [id number], [place] [address]- 8117 Oct, 2013 [facility] [place] [facility] [address] [id number] [place] [address]- 3940 Oct, [facility] [place] [facility] [address] [id number] [place] [address]- 9396 Sep, [facility] [place] [facility] [address] [id number] [place] [address]- 2679 Sep, [facility] [place] [facility] [address] [id number] [place] [address]- 1285 Sep, [facility] [place] [facility] [address] [id number] [place] [address]- 7735 Sep, [facility] [place] [facility] [address] [id number] [place] [address]- 8742 Sep, [facility] [place] [facility] [address] [id number] [place] [address]- 1851 Sep, [facility] [place] [facility] [address] [id number] [place] [address]- 0612 Sep, [facility] [place] [facility] [address] [id number] [place] [address]- 3768 Sep, [facility] [place] [facility] [address] [id number] [place] [address]- 6537 Sep, [facility] [place] [facility] [address] [id number] [place] [address]- 8958 Sep, [facility] [place] [facility] [address] [id number] [place] [address]- 1847 Sep, [facility] [place] [facility] [address] [id number] [place] [address]- 4920 Sep, [facility] [place] [facility] [address] [id number] [place] [address]- 1089 Sep, [facility] [place] [facility] [address] [id number] [place] [address]- 6077 Sep, [facility] [place] [facility] [address] [id number] [place] [address]- 6044 Sep, [facility] [place] [facility] [address] [id number] [place] [address]- 5618 Sep, [facility] [place] [facility] [address] [id number] [place] [address]- 2010 Sep, [facility] [place] [facility] [address] [id number] [place] [address]- 6738 Sep, [facility] [place] [facility] [address] [id number] [place] [address]- 2548 Aug, [facility] [place] [facility] [address] [id number] [place] [address]- 1042 Aug, [facility] [place] [facility] [address] [id number] [place] [address]- 5240 Aug, [facility] [place] [facility] [address] [id number] [place] [address]- 3035 Aug, [facility] [place] [facility] [address] [id number] [place] [address]- 6119 Aug, [facility] [place] [facility] [address] [id number] [place] [address]- 7547 Aug, [facility] [place] [facility] [address] [id number] [place] [address]- 7682 Jul, [facility] [place] [facility] [address] [id number] [place] [address]- 5124 Jul, [facility] [place] [facility] [address] [id number] [place] [address]- 3171 Jul, [facility] [place] [facility] [address] [id number] [place] [address]- 8258 Jul, [facility] [place] [facility] [address] [id number] [place] [address]- 8580 June, [facility] [place] [facility] [address] [id number] [place] [address]- 9113 June, [facility] [place] [facility] [address] [id number] [place] [address]- 8557 June, [facility] [place] [facility] [address] [id number] [place] [address]- 3954 June, [facility] [place] [facility] [address] [id number] [place] [address]- 2681 June, [facility] [place] [facility] [address] [id number] [place] [address]- 0466 June, [facility] [place] [facility] [address] [id number] [place] 6836 June, [facility] [place] [facility] [address] [id number] [place] [address]- 1579 May, [facility] [place] [facility] [address] [id number] [place] [address]- 9326 May, [facility] [place] [facility] [address] [id number] [place] [address]- 0230 May, [facility] [place] [facility] [address] [id number] [place] [address]- 9900 May, [facility] [place] [facility] [address] [id number] [place] [address]- 3037 May, [facility] [place] [facility] [address] [id number] [place] [address]- 2321 May, [facility] [place] [facility] [address] [id number] [place] [address]- 2851 Apr, [facility] [place] [facility] [address] [id number] [place] [address]- 8145 31 Apr, 2013 [facility] [place] [facility] [address] [id number] [place] [address]- 1668 Apr, [facility] [place] [facility] [address] [id number] [place] [address]- 4367 28 Apr, 2013 [facility] [place] [facility] [address] [id number] [place] [address]- 5932 14 Apr, 2013 [facility] [place] [facility] [address] [id number] [place] [address]- 3801 14 Apr, 2013 [facility] [place] [facility] [address] [id number] [place] [address]- 8256 Apr, [facility] [place] [facility] [address] [id number] [place] [address]- 3595 Apr, [facility] [place] [facility] [address] [id number] [place] [address]- 7729 10 Apr, 2013 [facility] [address] [id number] [place] [address]- 6117 10 Apr, 2013 [facility] [place] [facility] [address] [id number] [place] [address]- 4287 Apr, [facility] [place] [facility] [address] [id number] [place] [address]- 2244 Apr, [facility] [place] [facility] [address] [id number] [place] [address]- 9417 Apr, [facility] [place] [facility] [address] [id number] [place] [address]- 4189 Apr, [facility] [place] [facility] [address] [id number] [place] [address]- 4776 Mar, [facility] [place] [facility] [address] [id number] [place] [address]- 4699 Mar, [facility] [place] [facility] [address] [id number] [place] [address]- 5626 Mar, [facility] [place] [facility] [address] [id number] [place] [address]- 3940 Feb, [facility] [place] [facility] [address] [id number] [place] [address]- 8593 Feb, [facility] [place] [facility] [address] [id number] [place] [address]- 8651 Feb, [facility] [place] [facility] [address] [id number] [place] [address]- 9573 Feb, [facility] [place] [facility] [address] [id number] [place] [address]- 6994 Feb, [facility] [place] [facility] [address] [id number] [place] [address]- 1676 Feb, [facility] [place] [facility] [address] [id number] [place] [address]- 5850 Feb, [facility] [address] [id number] [place] [address]- 2084 Feb, [facility] [place] [facility] [address] [id number] [place] [address]- 5347 Feb, [facility] [address] [id number] [place] [address]- 1161 Feb, [facility] [address] [id number] [place] [address]- 8205 Jan, [facility] [address] [id number] [place] [address]- [address] Jan, [facility] [address] [id number] [place] [address] Jan, [facility] [address] [id number] [place] [address] Jan, [facility] [address] [id number] [place] [address]- [address] Jan, [facility] [address] [id number] [place] [address] 9538 Jan, [facility] [place] [facility] [address] [id number] [place] [address]- [address] Jan, [facility] [place] [facility] [address] [id number] [place] [address] 8819 Jan, [facility] [place] [facility] [address] [id number], [place] [address] Jan, [facility] [place] [facility] [address] [id number] [place] [address]- [address] Jan, [facility] [place] [facility] [address] [id number] [place] [address]- [address]244 Jan, [facility] [place] [facility] [address] [id number] [place] [address]- 4898 Jan, [facility] [place] [facility] [address] [id number] [place] [address]- [address] 16 Jan, 2013 [facility] [address] [id number] [place] [address]- [address] Jan, [facility] [place] [facility] [address] [id number] [place] [address]- 6097 Jan, [facility] [address] [facility] [id number] [place] [address]- 1762 Jan, [facility] [place] [facility] [address] [id number] [place] [address]- 1673 Jan, [facility] [address] [id number] [place] [address]- 2615 Jan, [facility] [place] [facility] [address] [id number] [place] [address]- 0063 Jan, [facility] [address] [id number] [place] [address]- 67[address] Jan, [facility] [place] [facility] [address] [id number] [place] [address]- 1719 Jan, [facility] [place] [facility] [address] [id number] [place] [address]- 4023 Dec, [facility] [place] [facility] [address] [facility] [id number] [place] [address]- [address] Dec, [facility] [place] [facility] [address] [id number] [place] [address]- [address]208 Dec, [facility] [place] [facility] [address] [id number] [place] [address]- 1822 Dec, [facility] [place] [facility] [address] [id number] [place] [address]- 0494 Dec, [facility] [place] [facility] [address] [id number] [place] [address]- 9662 Dec, [facility] [place] [facility] [address] [facility] [id number] [place] [address]- 4167 Dec, [facility] [place] [facility] [address] [id number] [place] [address]- 3583 Dec, [facility] [place] [facility] [address] [id number] [place] [address]- 7566 Dec, [facility] [place] [facility] [address] [id number] [place] [address]- 4263 Dec, [facility] [place] [facility] [address] [id number] [place] [address]- 7464 Nov, [facility] [place] [facility] [address] [id number] [place] [address]- 1793 Nov, [facility] [place] [facility] [address] [id number] [place] [address]- 2563 Nov, [facility] [place] [facility] [address] [id number] [place] [address]- 2251 Nov, [facility] [place] [facility] [address] [id number] [place] [address]- 5381 Nov, [facility] [place] [facility] [address] [id number] [place] [address]- 7648 Nov, [facility] [place] [facility] [address] [id number] [place] [address]- 1273 Nov, [facility] [place] [facility] [address] [id number] [place] [address]- 5357 Nov, [facility] [place] [facility] [address] [id number] [place] [address]- 9196 Nov, [facility] [place] [facility] [address] [id number] [place] [address]- 3060 Nov, [facility] [place] [facility] [address] [id number] [place] [address]- 2659 Oct, [facility] [place] [facility] [address] [id number] [place] [address]- 5906 Oct, [facility] [place] [facility] [address] [id number] [place] [address]- 1229 Oct, [facility] [place] [facility] [address] [id number] [place] [address]- 6434 Oct, [facility] [place] [facility] [address] [id number] [place] [address]- 2033 Oct, [facility] [place] [facility] [address] [id number] [place] [address] 2548 Sep, [facility] [place] [facility] [address] [id number] [place] [address]- 2985 Sep, [facility] [place] [facility] [address] [id number] [place] [address]- 9583 Aug, [facility] [place] [facility] [address] [id number] [place] [address]- 8050 Aug, [facility] [place] [facility] [address] [id number] [place] [address]- 7367 Aug, [facility] [place] [facility] [address] [id number] [place] [address]- 2012 Aug, [facility] [place] [facility] [address] [id number] [place] [address]- 7425 Aug, [facility] [place] [facility] [address] [id number] [place] [address]- 8982 Aug, [facility] [place] [facility] [address] [id number] [place] [address]- 6441 Aug, [facility] [place] [facility] [address] [id number] [place] [address]- 9897 Jul, [facility] [place] [facility] [address] [id number] [place] [address]- 0671 Jul, [facility] [place] [facility] [address] [id number] [place] [address]- 3311 June, [facility] [place] [facility] [address] [id number] [place] [address]- 7144 June, [facility] [place] [facility] [address] [id number] [place] [address]- 2211 June, [facility] [address] [id number] [place] [address]- 3837 June, [facility] [address] [id number] [place] [address]- 9792 June, [facility] [address] [id number] [place] [address]- 2781 June, [facility] [address] [id number] [place] [address]- 5658 June, [facility] [address] [id number] [place] [address]- 2065 June, [facility] [address] [id number] [place] [address]- 6256 June, [facility] [address] [id number] [place] [address]- 5932 June, [facility] [address] [id number] [place] [address]- 1527 June, [facility] [address] [id number] [place] [address]- 5965 May, [facility] [facility] [address] [id number] [place] [address] May, [facility] [address] [id number] [place] [address] May, [facility] [address] [id number] [place] [address] May, [facility] [address] [id number] [place] [address] Apr, [facility] [address] [id number] [place] [address] Apr, [facility] [address] [id number] [place] [address] Apr, [facility] [address] [id number] [place] [address] Mar, [facility] [place] [facility] [address] [id number] [place] [address] 76[address] Mar, [facility] [place] [facility] [address] [id number] [place] [address] 1340 Feb, [facility] [place] [facility] [address] [id number] [place] [address] 53[address] Feb, [facility] [address] [id number] [place] [address] 0980 Feb, [facility] [place] [facility] [address] [id number] [place] [address] 3831 Feb, [facility] [place] [facility] [address] [id number] [place] [address] 9254 Feb, [facility] [address] [id number] [place] [address] 97[address] Feb, [facility] [place] [facility] [address] [id number] [place] [address]- 0282 Feb, [facility] [address] [id number], [place] [address] Jan, [facility] [place] [facility] [address] [id number] [place] [address] 4[address] Jan, [facility] [place] [facility] [address] [id number], [place] [address] 28 Jan, 2012 [facility] [place] [facility] [address] [id number] [place] [address]- 6976 Jan, [facility] [place] [facility] [address] [id number] [place] [address]- 0726 Jan, [facility] [place] [facility] [address] [id number] [place] [address]- 3362 Jan, [facility] [place] [facility] [address] [id number], [place] [address] 9[address] Jan, [facility] [place] [facility] [address] [id number] [place] [address]- 0738 Jan, [facility] [place] [facility] [address] [facility] [id number] [place] [address]- 2766 Jan, [facility] [place] [facility] [address] [facility] [id number] [place] [address]- 9726 Jan, [facility] [place] [facility] [address] [id number] [place] [address]- 2901 Jan, [facility] [place] [facility] [id number] [place] [address], [place] [address]- 0469 Dec, [facility] [place] [facility] [address] [facility] [id number] [place] [address]- 2680 Dec, [facility] [place] [facility] [id number] [place] [address] Dec, [facility] [place] [facility] [address] [facility] [id number] [place] [address]- 6099 Dec, [facility] [place] [facility] [address] [id number] [place] [address]- 477[address] Nov, [facility] [place] [facility] [address] [id number] [place] [address]- 2235 Nov, [facility] [place] [facility] [address] [facility] [id number], [place] [address]- [address] 08 Nov, 2011 [facility] [place] [facility] [address] [facility] [id number], [place] [address]- [address] 27 Oct, 2011 [facility] [place] [facility] [address] [id number] [place] [address]- [address] 24 Oct, 2011 [facility] [place] [facility] [address] [facility] [id number] [place] [address]- 6823 21 Oct, 2011 [facility] [place] [facility] [address] [id number], [place] [address] 4[address] 10 Oct, 2011 [facility] [place] [facility] [address] [id number] [place] [address]- 4290 07 Oct, 2011 [facility] [place] [facility] [address] [id number] [place] [address]- 8[address] 04 Oct, 2011 [facility] [place] [facility] [address] [id number] [place] [address] 2546 Oct, [facility] [place] [facility] [address] [id number] [place] [address] 2546 Sep, [facility] [place] [facility] [address] [id number] [place] [address] 2545 Sep, [facility] [place] [facility] [address] [id number] [place] [address]- 9646 Sep, [facility] [place] [facility] [address] [id number] [place] [address]- 5736 Sep, [facility] [place] [facility] [address] [id number] [place] [address]- 6418 Sep, [facility] [place] [facility] [address] [id number] [place] [address]- 1721 Aug, [facility] [place] [facility] [address] [id number] [place] [address]- 1698 Aug, [facility] [place] [facility] [address] [id number] [place] [address]- 9897 Aug, [facility] [place] [facility] [address] [id number] [place] [address]- 1056 16 Aug, 2011 [facility] [place] [facility] [address] [id number] [place] [address] 2545 Aug, [facility] [place] [facility] [address] [id number] [place] [address] 2546 Aug, [facility] [place] [facility] [address] [id number] [place] [address]- 2546 Aug, [facility] [place] [facility] [address] [id number] [place] [address]- 9078 Jul, [facility] [place] [facility] [address] [id number] [place] [address]- 0018 Jul, [facility] [place] [facility] [address] [id number] [place] [address]- 5316 Jul, [facility] [place] [facility] [address] [id number] [place] [address]- 5125 Jul, [facility] [place] [facility] [address] [id number] [place] [address]- 9286 Jul, [facility] [place] [facility] [address] [id number] [place] [address]- 6308 Jul, [facility] [place] [facility] [address] [id number] [place] [address]- 6731 07 Jul, 2011 [facility] [place] [facility] [address] [id number] [place] [address]- 7279 06 Jul, 2011 [facility] [place] [facility] [address] [id number] [place] [address]- 4636 05 Jul, 2011 [facility] [place] [facility] [address] [id number] [place] [address]- 9643 June, [facility] [place] [facility] [address] [id number] [place] [address]- 3445 June, [facility] [place] [facility] [address] [id number] [place] [address]- 9890 June, [facility] [place] [facility] [address] [id number] [place] [address]- 3167 June, [facility] [place] [facility] [address] [id number] [place] [address]- 1838 June, [facility] [place] [facility] [address] [id number] [place] [address]- 0616 June, [facility] [place] [facility] [address] [id number] [place] [address]- 7983 June, [facility] [place] [facility] [address] [id number] [place] [address]- 0260 June, [facility] [address] [id number] [place] [address]- 8906 May, [facility] [place] [facility] [address] [id number] [place] [address]- 1286 May, [facility] [address] [id number] [place] [address]- 8416 May, [facility] [place] [facility] [address] [id number] [place] [address]- 9746 May, [facility] [place] [facility] [address] [id number] [place] [address]- 7643 May, [facility] [place] [facility] [address] [id number] [place] [address]- 2667 May, [facility] [address] [id number] [place] [address]- 1353 May, [facility] [place] [facility] [address] [id number] [place] [address]- 8472 Apr, [facility] [place] [facility] [address] [id number] [place] [address]- 6052 Apr, [facility] [place] [facility] [address] [id number] [place] [address]- 7007 Apr, [facility] [place] [facility] [address] [id number] [place] [address]- 7376 Apr, [facility] [place] [facility] [address] [id number] [place] [address]- 1763 Apr, [facility] [place] [facility] [address] [id number] [place] [address]- 2598 Apr, [facility] [place] [facility] [address] [id number] [place] [address]- 1856 Apr, [facility] [place] [facility] [address] [id number] [place] [address]- 0021 Mar, [facility] [place] [facility] [address] [id number] [place] [address]- 6098 Mar, [facility] [place] [facility] [address] [id number] [place] [address]- 3036 Mar, [facility] [place] [facility] [address] [id number] [place] [address]- 6596 Mar, [facility] [place] [facility] [address] [id number] [place] [address]- 6198 Mar, [facility] [place] [facility] [address] [id number] [place] [address]- 0292 Mar, [facility] [place] [facility] [address] [id number] [place] [address]- 2489 Mar, [facility] [place] [facility] [address] [id number] [place] [address]- 6822 Feb, [facility] [place] [facility] [address] [id number] [place] [address]- 3758 Feb, [facility] [place] [facility] [address] [id number] [place] [address]- 8066 Feb, [facility] [place] [facility] [address] [id number] [place] [address]- 6080 Feb, [facility] [place] [facility] [address] [id number], [place] [address]- 3910 Feb, [facility] [place] [facility] [address] [id number], [place] [address]- 4384 Feb, [facility] [place] [facility] [address] [id number] [place] [address]- 8167 Feb, [facility] [place] [facility] [address] [id number] [place] [address]- 2025 Feb, [facility] [place] [facility] [address] [id number] [place] [address]- 5671 Feb, [facility] [place] [facility] [address] [id number] [place] [address]- 2725 03 Feb, 2011 [facility] [address] [id number] [place] [address]- 9135 27 Jan, 2011 [facility] [place] [facility] [address] [id number] [place] [address]- 1506 Jan, [facility] [place] [facility] [address] [id number] [place] [address]- 6906 Jan, [facility] [place] [facility] [address] [id number] [place] [address]- 1308 Jan, [facility] [place] [facility] [address] [id number] [place] [address]- 5497 Jan, [facility] [place] [facility] [address] [id number] [place] [address]- 0202 Jan, [facility] [address] [id number] [place] [address]- 4972 15 Jan, 2011 [facility] [place] [facility] [address] [id number] [place] [address]- 1005 15 Jan, 2011 [facility] [place] [facility] [address] [id number] [place] [address]- 8635 Jan, [facility] [place] [facility] [address] [id number] [place] [address]- 4480 Jan, [facility] [place] [facility] [address] [id number] [place] [address]- 4291 Jan, [facility] [place] [facility] [address] [id number] [place] [address]- 2988 Dec, [facility] [place] [facility] [address] [id number] [place] [address]- 5242 17 Dec, 2010 [facility] [place] [facility] [address] [id number] [place] [address]- 3717 17 Dec, 2010 [facility] [place] [facility] [address] [id number] [place] [address]- 1818 16 Dec, 2010 [facility] [place] [facility] [address] [id number] [place] [address]- 2837 14 Dec, 2010 [facility] [place] [facility] [address] [id number] [place] [address]- 0233 09 Dec, 2010 [facility] [place] [facility] [address] [id number] [place] [address]- 9468 08 Dec, 2010 [facility] [place] [facility] [address] [id number] [place] [address]- 5979 07 Dec, 2010 [facility] [place] [facility] [address] [id number] [place] [address]- 0959 Dec, [facility] [place] [facility] [address] [id number] [place] [address]- 3168 Nov, [facility] [place] [facility] [address] [id number] [place] [address]- 5511 Nov, [facility] [place] [facility] [address] [id number] [place] [address]- 0621 Nov, [facility] [place] [facility] [address] [id number] [place] [address]- 0503 24 Nov, 2010 [facility] [place] [facility] [address] [id number] [place] [address]- 3389 24 Nov, 2010 [facility] [place] [facility] [address] [id number] [place] [address]- 0723 Nov, [facility] [place] [facility] [address] [id number] [place] [address]- 9629 Aug, [facility] [place] [facility] [address] [id number] [place] [address]- 7523 14 Feb, 2010 [facility] [place] [facility] [address] [id number] [place] [address]- 0254 14 Jan, 2010 [facility] [place] [facility] [address] [id number] [place] [address]- 3544 06 Jan, 2010 [facility] [place] [facility] [address] [id number], [place] [address]- 5896 Jan, [facility] [address] [address]- 6149 Jan, [facility] [address], [place] [address]- 8696 Jan, [facility] [address], [place] [address]- 3659 Dec, [facility] [address], [place] [address]- 1545 Dec, [facility] [address], [place] [address]- 9910 Dec, [facility] [id number] [place] [address]- 2350 Dec, [facility] [address], [place] [address]- 6545 Nov, [facility] [address], [place] [address]- 6069 Nov, [facility] [address] [id number], [place] [address]- 7828 Nov, IMMUNIZATIONS No Known Immunizations SOCIAL HISTORY Never Assessed REASON FOR VISIT Fentanyl 01/14 PLAN OF CARE VITAL SIGNS MEDICATIONS Medication Instructions Dosage Frequency Start Date End Date Duration Status Fentanyl 50 MCG/HR Transdermal 72hrs 1 patch to skin Jan, 30 days Active RESULTS No Results PROCEDURES [...]
--- OUTSIDE RECORDS SUMMARY | 2018-01-13 21:40 | XMS REPORT ---
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
--- OUTSIDE RECORDS SUMMARY | 2018-01-13 21:40 | XMS REPORT ---
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 Problem Hypertension I10 Active Problem Unspecified episodic mood disorder F39 Active Problem Chronic hepatitis C without hepatic coma B18.2 Active Problem Left knee pain M25.562 Active Problem Other chronic pain G89.29 Active Problem Fibromyalgia M79.7 Active Problem Arthritis M19.90 Active Problem Left hip pain M25.552 Active Problem Anxiety F41.9 Active Assessment Unspecified episodic mood disorder F39 Active Assessment Combined drug dependence excluding opioids, 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
--- OUTSIDE RECORDS SUMMARY | 2018-01-13 21:41 | XMS REPORT ---
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 Name Role Phone WYATT SOTO Unavailable PROBLEMS Type Condition ICD9-CM Code SAO45-JX Code Onset Dates Condition Status SNOMED Code Problem Left hip pain M25.552 Active 02884654 Problem Other chronic pain G89.29 Active 18313372 Problem Chronic hepatitis C without hepatic coma B18.2 Active 335161825 Problem Other obesity due to excess calories E66.09 Active 895052815 Problem Body mass index (BMI) of 34.0-34.9 in adult Z68.34 Active 605607436 Problem Other psychoactive substance dependence, 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 Active 7587491 Problem 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, 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 624652118 Problem Gastroesophageal reflux disease, esophagitis presence not specified K21.9 Active 214826950 Problem Venous insufficiency (chronic) (peripheral) I87.2 Active 703292992 Problem Unspecified episodic mood disorder F39 Active 85252159 Problem Hypertension I10 Active 52083886 Problem Combined drug dependence excluding opioids, 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 Active 587265576 Problem Arthritis M19.90 Active 2004483 Problem Other disorder of impulse control F63.89 Active 46802236 Problem Anxiety F41.9 Active 34390839 ALLERGIES No Information ENCOUNTERS Encounter Location Date Diagnosis [facility] [address] [facility] [id number] [address] Jul, [facility] [address] [address] Jul, [facility] [address], [place] [address] Jul, Arthritis M19.90 [facility] [id number] [place] [address] 74764- 3761 Jul, Left hip pain M25.552 ; Hypertension I10 ; Other obesity due to excess calories E66.09 and Body mass index (BMI) of 34.0-34.9 in adult Z68.34 [facility] [address] [address] Jul, Unspecified episodic mood disorder F39 [facility] [id number] [place] [address] 92446- 3241 June, Gastroesophageal reflux disease, esophagitis presence not specified K21.9 [facility] [id number] [place] [address] 63211- 6107 June, [facility] [id number] [place] [address] 23288- 8162 June, [facility] [id number] [place] [address] 74514- 7856 June, Arthritis M19.90 [facility] [id number] [place] [address] 76555- 4563 June, [facility] [id number] [place] [address] 07412- 3965 June, [facility] [address] [address] June, Unspecified episodic mood disorder F39 [facility] [id number] [place] [address] 01694- 2211 May, Unspecified episodic mood disorder F39 [facility] [address], [place] [address] May, [facility] [id number] [address] May, Arthritis M19.90 [facility] [address], [place] [address] May, Dysuria R30.0 ; Abscess L02.91 and Acute cystitis without hematuria N30.00 [facility] [id number] [place] [address] 91302- 5408 May, Other disorder of impulse control F63.89 ; Unspecified episodic mood disorder F39 ; Combined drug dependence excluding opioids, 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 ; Anxiety F41.9 and Other psychoactive substance dependence, 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 [facility] [id number] [place] [address] 19109- 2375 May, [facility] [id number] [place] [address] 96085- 8975 May, Other disorder of impulse control F63.89 ; Unspecified episodic mood disorder F39 ; Combined drug dependence excluding opioids, 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 ; Other psychoactive substance dependence, 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 and Anxiety F41.9 [facility] [id number] [place] [address] 58478- 0916 May, Other chronic pain G89.29 ; Left hip pain M25.552 ; Hypertension I10 ; 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, 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 and Unspecified episodic mood disorder F39 [facility] [id number] [place] [address] 60973- 1207 Apr, [facility] [id number] [place] [address] 25196 -6131 Apr, Neck pain M54.2 ; Left hip pain M25.552 and Fall, initial encounter W19.XXXA [facility] [id number] [place] [address] 62002- 1951 Apr, Unspecified episodic mood disorder F39 ; Combined drug dependence excluding opioids, 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 ; Anxiety F41.9 ; Other psychoactive substance dependence, 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 and Other disorder of impulse control F63.89 [facility] [id number] [place] [address] 51164- 4043 Apr, [facility] [id number] [place] [address] 47651- 3237 Apr, Arthritis M19.90 and Unspecified episodic mood disorder F39 [facility] [id number] [place] [address] 67759- 2456 Apr, Unspecified episodic mood disorder F39 [facility] [address], [place] [address] 6666 Apr, [facility] [id number] [place] [address] 06981- 4186 Apr, [facility] [id number] [place] [address] 60022- 7175 Apr, Unspecified episodic mood disorder F39 ; Combined drug dependence excluding opioids, 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 ; Anxiety F41.9 ; Other psychoactive substance dependence, 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 and Other disorder of impulse control F63.89 [facility] [id number] [place] [address] 18842- 2154 Mar, Unspecified episodic mood disorder F39 [facility] [id number] [place] [address] 84176- 8840 Mar, Gastroesophageal reflux disease, esophagitis presence not specified K21.9 [facility] [id number] [place] [address] 40776- 4103 Mar, Arthritis M19.90 and Unspecified episodic mood disorder F39 [facility] [id number] [place] [address] 30942- 0096 Feb, [facility] [id number] [place] [address] 11003 2541 Feb, [facility] [id number] [place] [address] 57890- 2876 Feb, [facility] [id number] [place] [address] 09237- 4486 Feb, Arthritis M19.90 [facility] [id number] [place] [address] 11702- 7343 Feb, Non-pressure chronic ulcer of right calf, 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 ; Unspecified episodic mood disorder F39 and Left hip pain M25.552 [facility] [id number] [place] [address] 83036- 9572 Feb, [facility] [id number] [place] [address] 63806- 3706 Feb, [facility] [id number] [place] [address] 56464- 8602 Jan, Arthritis M19.90 [place] [address] 42330- 9876 Jan, Left hip pain M25.552 and Non-pressure chronic ulcer of right calf, 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 [place] [id number] [place] [address] 97295- 3415 Jan, Chronic hepatitis C without hepatic coma B18.2 [place] [id number] [place] [address] 37929- 7918 Jan, Encounter for immunization Z23 ; Venous insufficiency ( chronic) (peripheral) I87.2 ; Non-pressure chronic ulcer of unspecified calf limited to breakdown of skin L97.201 and Gastroesophageal reflux disease, esophagitis presence not specified K21.9 [place] [id number] [place] [address] 19258- 2248 Jan, [place] [id number] [place] [address] 28921- 5305 Jan, Chronic hepatitis C without hepatic coma B18.2 and Encounter for immunization Z23 [place] [id number] [place] [address] 78207- 7171 Jan, Arthritis M19.90 [place] [id number] [place] [address] 44303- 4901 Jan, [place] [id number] [place] [address] 15140- 0457 Dec, [facility] [id number] [place] [address] 49109- 8016 Dec, Unspecified episodic mood disorder F39 [facility] [id number] [place] [address] 05692- 7102 Dec, Arthritis M19.90 [facility] [id number] [place] [address] 96559- 3418 Dec, Arthritis M19.90 [facility] [id number] [place] [address] 44802- 5462 Nov, [facility] [id number] [place] [address] 03972- 9614 Nov, [facility] [id number] [place] [address] 28985- 4233 Nov, Other psychoactive substance dependence, 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 ; 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, 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 and Chronic hepatitis C without hepatic coma B18.2 [facility] [id number] [place] [address] 46028- 6320 Nov, Arthritis M19.90 [facility] [id number] [place] [address] 05954 -0372 Oct, Partial thickness burn of abdomen, initial encounter T21.22XA [facility] [id number] [place] [address] 04164- 8558 Oct, [facility] [id number] [place] [address] 05403- 5730 Sep, Arthritis M19.90 [facility] [id number] [place] [address] 59295- 6540 Sep, [facility] [id number] [place] [address] 35684- 8677 Sep, [facility] [id number] [place] [address] 18050- 1051 Sep, Unspecified episodic mood disorder F39 ; Chronic hepatitis C without hepatic coma B18.2 and Left hip pain M25.552 [facility] [id number] [place] [address] 46543- 1343 Sep, Arthritis M19.90 and Left hip pain M25.552 [facility] [id number] [place] [address] 10150- 3670 Aug, [facility] [id number] [place] [address] 65316- 9229 Aug, [facility] [id number] [place] [address] 29234- 5876 Aug, Chronic hepatitis C without hepatic coma B18.2 [facility] [id number] [place] [address] 33363- 9828 Aug, [facility] [id number] [place] [address] 21557- 4295 Aug, Chronic hepatitis C without hepatic coma B18.2 [facility] [id number] [place] [address] 02229- 5935 Aug, 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, 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 [facility] [id number] [place] [address] 58307- 9310 Aug, [facility] [id number] [place] [address] 55407- 8180 Aug, Chronic hepatitis C without hepatic coma B18.2 and Hypertension I10 [facility] [address], [place] [address]- 4180 Jul, [facility] [id number] [place] [address] 27087- 2160 June, [facility] [id number], [place] [address]- 3581 Apr, Fibromyalgia M79.7 ; Left hip pain M25.552 and Decubitus ulcer of sacral region, stage 1 L89.151 [facility] [id number] [place] [address] 49098- 5944 Apr, [facility] [id number] [place] [address] 90985- 3652 Apr, [facility] [id number] [place] [address] 74847- 5347 Feb, [facility] [id number] [place] [address] 54551- 9964 Dec, Anxiety F41.9 ; Combined drug dependence excluding opioids, 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 and Unspecified episodic mood disorder F39 [facility] [id number] [place] [address] 86839- 3400 Dec, [facility] [id number] [place] [address] 95636- 9299 Nov, [facility] [id number] [place] [address] 71880- 7039 Nov, [facility] [id number] [place] [address] 36484- 6290 Nov, Other disorder of impulse control F63.89 and Anxiety F41.9 [facility] [id number] [place] [address] 52639- 3038 Oct, [facility] [id number] [place] [address] 33260 -2911 14 Oct, 2015 Open wound of left thigh, initial encounter S71.102A [facility] [id number] [place] [address] 38932- 5419 Oct, [facility] [id number] [place] [address] 20366- 7142 Sep, Unspecified episodic mood disorder F39 ; Other disorder of impulse control 312.39 ; Combined drug dependence excluding opioids, 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 and Anxiety F41.9 [facility] [id number] [place] [address] 25598- 4506 Sep, Other disorder of impulse control 312.39 ; Combined drug dependence excluding opioids, 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 ; Anxiety F41.9 and Unspecified episodic mood disorder F39 [facility] [address], [place] [address]- 9093 Sep, Other chronic pain G89.29 [facility] [id number] [place] [address] 93450- 2917 Sep, [facility] [id number] [place] [address] 62116- 1792 Sep, [facility] [id number] [place] [address] 69015- 7747 Aug, [facility] [id number] [place] [address] 46878- 7694 Aug, [facility] [id number] [place] [address] 42067- 6420 Aug, [facility] [id number] [place] [address] 33671- 2079 Jul, [facility] [id number] [place] [address] 84056- 3580 Jul, [facility] [id number] [place] [address] 78940- 5861 Jul, [facility] [id number] [place] [address] 37497- 3768 Jul, Arthritis M19.90 ; Chronic hepatitis C without hepatic coma B18.2 and Left hip pain M25.552 [facility] [id number] [place] [address] 21455- 6665 Jul, Left knee pain M25.562 [facility] [address], [place] [address]- 4512 Jul, Combined drug dependence excluding opioids, 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 ; Anxiety F41.9 ; Other disorder of impulse control 312.39 and Unspecified episodic mood disorder F39 [facility] [address], [place] [address]- 6104 13 Jul, 2015 Left knee pain M25.562 [facility] [id number] [place] [address] 07688- 5746 08 Jul, 2015 Left knee pain M25.562 and Left hip pain M25.552 [facility] [id number] [place] [address] 99515- 9539 Jul, [facility] [id number] [place] [address] 87755- 4852 June, [facility] [id number] [place] [address] 03503- 1451 June, Combinations of drug dependence excluding opioid type drug, unspecified abuse 304.80 ; Other disorder of impulse control 312.39 ; Unspecified episodic mood disorder F39 and Anxiety F41.9 [facility] [id number] [place] [address] 58682- 4400 June, Other fatigue R53.83 ; Headache R51 and Left knee pain M25.562 [facility] [id number] [place] [address] 31916- 4468 June, Unspecified episodic mood disorder F39 ; Combinations of drug dependence excluding opioid type drug, unspecified abuse 304.80 ; Other disorder of impulse control 312.39 and Anxiety F41.9 [facility] [id number] [place] [address] 62864- 5551 June, Anxiety F41.9 [facility] [id number] [place] [address] 05593- 8676 June, Pain in left knee M25.562 [facility] [id number] [place] [address] 84071- 7018 June, Anxiety F41.9 and Combinations of drug dependence excluding opioid type drug, unspecified abuse 304.80 [facility] [id number] [place] [address] 69029- 0715 June, Unspecified episodic mood disorder 296.90 ; Combinations of drug dependence excluding opioid type drug, unspecified abuse 304.80 and Other disorder of impulse control 312.39 [facility] [id number] [place] [address] 51542- 1677 June, Anxiety F41.9 and Unspecified episodic mood disorder 296.90 [facility] [id number] [place] [address] 01599- 0119 May, Arthritis M19.90 [facility] [id number] [place] [address] 98730- 3070 May, Arthritis M19.90 [facility] [id number] [place] [address] 99773- 0217 May, Anxiety F41.9 ; Combinations of drug dependence excluding opioid type drug, unspecified abuse 304.80 and Other disorder of impulse control 312.39 [facility] [id number] [place] [address] 82154- 2816 May, Left knee pain M25.562 [facility] [id number] [place] [address] 35894- 9679 May, Arthritis M19.90 [facility] [id number] [place] [address] 17025- 6519 May, [facility] [id number] [place] [address] 84431- 3059 May, Anxiety F41.9 ; Unspecified episodic mood disorder 296.90 ; Combinations of drug dependence excluding opioid type drug, unspecified abuse 304.80 and Other disorder of impulse control 312.39 [facility] [id number] [place] [address] 73899- 1261 May, Left knee pain M25.562 [facility] [id number] [place] [address] 23167- 3316 May, Left knee pain M25.562 ; Combinations of drug dependence excluding opioid type drug, unspecified abuse 304.80 ; Other disorder of impulse control 312.39 ; Fibromyalgia M79.7 ; Hypertension I10 ; Unspecified episodic mood disorder 296.90 and Left hip pain M25.552 [place] [id number] [place] [address] 39348- 0852 May, Unspecified episodic mood disorder 296.90 ; Other disorder of impulse control 312.39 ; Combinations of drug dependence excluding opioid type drug, unspecified abuse 304.80 and Anxiety F41.9 [place] [id number] [place] [address] 35231- 7236 May, Left knee pain M25.562 ; Combinations of drug dependence excluding opioid type drug, unspecified abuse 304.80 ; Other disorder of impulse control 312.39 ; Fibromyalgia M79.7 ; Hypertension I10 ; Unspecified episodic mood disorder 296.90 and Left hip pain M25.552 [place] [id number] [place] [address] 90502- 2814 May, Anxiety F41.9 ; Unspecified episodic mood disorder 296.90 ; Other disorder of impulse control 312.39 and Combinations of drug dependence excluding opioid type drug, unspecified abuse 304.80 [place] [id number] [place] [address] 63315- 1703 Apr, 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 and 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, implants and grafts, initial encounter T84.82XA [place] [id number] [place] [address] 08972- 7419 Apr, Anxiety F41.9 ; Unspecified episodic mood disorder 296.90 ; Combinations of drug dependence excluding opioid type drug, unspecified abuse 304.80 and Other disorder of impulse control 312.39 [place] [id number] [place] [address] 32349- 6505 Apr, Arthritis M19.90 [place] [id number] [place] [address] 11675- 8349 Apr, Anxiety F41.9 ; Unspecified episodic mood disorder 296.90 ; Combinations of drug dependence excluding opioid type drug, unspecified abuse 304.80 and Other disorder of impulse control 312.39 [facility] [id number] [place] [address] 66299- 2474 17 Apr, 2015 Arthritis M19.90 [facility] [address] [address]- 9322 15 Apr, 2015 [facility] [id number] [place] [address] 28043- 3385 15 Apr, 2015 [facility] [id number] [place] [address] 16943- 0260 14 Apr, 2015 Unspecified episodic mood disorder 296.90 ; Combinations of drug dependence excluding opioid type drug, unspecified abuse 304.80 ; Other disorder of impulse control 312.39 and Anxiety F41.9 [facility] [id number] [place] [address] 05308 -2197 11 Apr, 2015 Left knee pain M25.562 [facility] [id number] [place] [address] 05508- 6574 Apr, [facility] [id number] [place] [address] 22007- 9497 29 Mar, 2015 Unspecified episodic mood disorder 296.90 ; Anxiety F41.9 ; Other disorder of impulse control 312.39 and Combinations of drug dependence excluding opioid type drug, unspecified abuse 304.80 [facility] [id number] [place] [address] 18717- 7679 Mar, Hyperpigmentation L81.9 [facility] [id number] [place] [address] 75053- 0103 Mar, Arthritis M19.90 and Anxiety F41.9 [facility] [id number] [place] [address] 12694- 4542 Mar, Unspecified episodic mood disorder F39 ; Combined drug dependence excluding opioids, 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 ; Other disorder of impulse control F63.89 and Anxiety F41.9 [facility] [id number] [place] [address] 36169- 6056 12 Mar, 2015 Well woman exam Z01.419 ; Other fatigue R53.83 ; Hot flashes N95.1 ; Depression, unspecified depression type F32.9 and Body mass index (BMI) of 23.0-23.9 in adult Z68.23 [place] [id number] [place] [address] 66365- 1609 11 Mar, 2015 Unspecified episodic mood disorder 296.90 ; Other disorder of impulse control 312.39 and Anxiety F41.[address] [address]- 9303 11 Mar, 2015 Well woman exam Z01.419 [...] of breast Z12.39 and Limited mobility Z74.09 [place] [id number] [place] [address] 75594- 8198 10 Mar, 2015 [place] [address] [place] [id number] [place] [address] 45644- 9719 10 Mar, 2015 [place] [id number] [place] [address] 27430- 7136 Mar, [place] [address] [place] [id number] [place] [address] 92122- 9488 03 Mar, 2015 Other specified complication of internal orthopedic prosthetic devices, implants and grafts, initial encounter T84.89XA ; Fibromyalgia M79.7 ; Hypertension I10 ; Anemia D64.9 ; Insomnia G47.00 ; Anxiety F41.9 ; Arthritis M19.90 and Migraine G43.909 [facility] [address] [address]- 7376 Mar, [facility] [address] 48236- 3431 Feb, [facility] [address] 26859- 9365 Feb, Arthritis M19.90 and Anxiety F41.9 [facility] [address] 98886- 6965 Feb, [facility] [address] 35328- 4661 Feb, [facility] [address] 83522- 1509 Feb, [facility] [address] 64901- 7982 Feb, [facility] [address] 52033- 9123 Feb, Anxiety F41.9 [facility] [address] 21154- 2120 Feb, [facility] [address] 52694- 3781 Feb, [facility] [address] 42627- 7444 Feb, 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 and Fibromyalgia M79.7 [facility] [address] 72917- 5035 Feb, [facility] [address] 76125- 2698 Jan, [facility] [address] 27560- 5281 Jan, [facility] [address] [address] 4692 Jan, [facility] [address] 0071 Jan, [facility] [address] 0967 Jan, [facility] [id number] [place] [address] 051678- 1193 Jan, [facility] [address], [place] [address]- 1340 Jan, [facility] [id number] [place] [address] 992862- 3669 Jan, [facility] [id number] [place] [address] 50834- 4884 Dec, [facility] [address], [place] [address]- 8509 Dec, Left knee pain M25.562 [facility] [id number] [place] [address] 52081- 2655 Dec, Left knee pain M25.562 [facility] [address], [place] [address]- 1518 Dec, Fibromyalgia M79.7 ; Hypertension I10 and Arthritis M19.90 [facility] [address], [place] [address]- 1593 Dec, [facility] [address], [place] [address]- 1635 Dec, [facility] [address], [place] [address]- 3994 Dec, [facility] [address], [place] [address]- 3244 Dec, [facility] [address], [place] [address]- 2127 Nov, 2014 [facility] [address] [id number], [place] [address]- 4226 Nov, 2014 [facility] [place] [facility] [address] [facility] [id number], [place] [address]- 7445 Nov, 2014 [facility] [address] [facility] [id number], [place] [address]- 8720 Nov, Hypertension I10 [facility] [place] [facility] [address] [id number] [place] [address]- 6736 23 Oct, 2014 [facility] [address] [facility] [id number] [place] [address], [place] [address]- 4966 17 Oct, 2014 [facility] [address] [facility] [id number], [place] [address]- 6454 04 Oct, 2014 [facility] [place] [facility] [address] [place] [id number] [place] [address] 97583- 0709 Oct, 2014 [facility] [address] [facility] [id number], [place] [address]- 7288 Oct, [facility] [address], [place] [address]- 7179 Sep, [facility] [address] [place] [id number] [address]- 9823 Sep, [facility] [place] [facility] [address], [place] [address]- 9439 Sep, Hip pain associated with recalled total hip arthroplasty hardware 996.77 [facility] [place] [facility] [address] [facility] [id number] [place] [address]- 1949 Sep, [facility] [place] [facility] [address] [facility] [id number], [place] [address]- 6638 Sep, [facility] [place] [facility] [address] [facility] [id number], [place] [address]- 4192 Sep, [facility] [place] [facility] [address] [facility] [id number] [place] [address]- 0457 Aug, [facility] [place] [facility] [address] [id number] [place] [address]- 1259 Jul, [facility] [place] [facility] [address] [id number] [place] [address]- 7711 June, [facility] [place] [facility] [address] [id number] [place] [address]- 8356 June, [facility] [place] [facility] [address] [id number] [place] [address]- 1786 June, [facility] [place] [facility] [address] [id number] [place] [address]- 7689 June, [facility] [place] [facility] [address] [id number] [place] [address]- 5203 June, [facility] [place] [facility] [address] [id number] [place] [address]- 3360 June, [facility] [place] [facility] [address] [id number] [place] [address]- 0887 May, [facility] [place] [facility] [address] [id number] [place] [address]- 2928 May, [facility] [place] [facility] [address] [id number] [place] [address]- 9749 May, [facility] [place] [facility] [address] [id number] [place] [address]- 5039 Apr, [facility] [place] [facility] [address] [id number] [place] [address]- 5029 Apr, [facility] [place] [facility] [address] [id number] [place] [address]- 0938 Apr, [facility] [place] [facility] [address] [id number] [place] [address]- 7564 Apr, [facility] [place] [facility] [address] [id number] [place] [address]- 6995 Apr, [facility] [place] [facility] [address] [id number] [place] [address]- 8433 13 Apr, 2014 [facility] [place] [facility] [address] [id number] [place] [address]- 8518 Apr, [facility] [place] [facility] [address] [id number] [place] [address]- 1062 Apr, [facility] [place] [facility] [address] [id number] [place] [address]- 2181 Apr, [facility] [place] [facility] [address] [id number] [place] [address]- 9489 Apr, [facility] [place] [facility] [address] [id number] [place] [address]- 4694 Apr, [facility] [place] [facility] [address] [id number] [place] [address]- 1783 Mar, [facility] [place] [facility] [address] [id number] [place] [address]- 2830 Mar, [facility] [place] [facility] [address] [id number] [place] [address]- 4736 Mar, [facility] [place] [facility] [address] [id number] [place] [address]- 7349 Mar, [facility] [place] [facility] [address] [id number] [place] [address]- 0137 Mar, [facility] [place] [facility] [address] [id number] [place] [address]- 1074 Mar, [facility] [place] [facility] [address] [id number] [place] [address]- 9222 Feb, [facility] [place] [facility] [address] [id number] [place] [address]- 5458 Feb, [facility] [place] [facility] [address] [id number] [place] 2830 Feb, [facility] [place] [facility] [address] [id number] [place] [address]- 6133 Feb, [facility] [place] [facility] [address] [id number] [place] [address]- 6075 Jan, [facility] [place] [facility] [address] [id number] [place] [address]- 5669 Jan, [facility] [place] [facility] [address] [id number] [place] [address]- 8389 Jan, [facility] [place] [facility] [address] [id number] [place] [address]- 4383 Jan, [facility] [place] [facility] [address] [id number] [place] [address]- 8106 Dec, [facility] [place] [facility] [address] [id number] [place] [address]- 0455 Dec, [facility] [place] [facility] [address] [id number] [place] [address]- 4796 Dec, [facility] [place] [facility] [address] [id number] [place] [address]- 3306 Dec, [facility] [place] [facility] [address] [id number] [place] [address]- 0880 Dec, [facility] [place] [facility] [address] [id number] [place] [address]- 6863 Dec, [facility] [place] [facility] [address] [id number] [place] [address]- 4504 Dec, [facility] [place] [facility] [address] [id number], [place] [address]- 9583 Dec, [facility] [place] [facility] [address] [id number] [place] [address]- 5644 Dec, [facility] [place] [facility] [address] [id number] [place] [address]- 9185 Dec, [facility] [place] [facility] [address] [id number] [place] [address]- 8881 Dec, [facility] [place] [facility] [address] [id number] [place] [address]- 6092 31 Nov, 2013 [facility] [place] [facility] [address] [id number] [place] [address]- 1616 28 Nov, 2013 [facility] [place] [facility] [address] [id number] [place] [address]- 2128 28 Nov, 2013 [facility] [place] [facility] [address] [id number] [place] [address]- 4400 17 Nov, 2013 [facility] [place] [facility] [address] [id number] [place] [address]- 5137 17 Nov, 2013 [facility] [place] [facility] [address] [id number] [place] [address]- 1422 15 Nov, 2013 [facility] [place] [facility] [address] [id number] [place] [address]- 9940 15 Nov, 2013 [facility] [place] [facility] [address] [id number] [place] [address]- 4762 15 Nov, 2013 [facility] [place] [facility] [address] [id number] [place] [address]- 1232 15 Nov, 2013 [facility] [place] [facility] [address] [id number] [place] [address]- 0179 14 Nov, 2013 [facility] [place] [facility] [address] [id number] [place] [address]- 5736 14 Nov, 2013 [facility] [place] [facility] [address] [id number] [place] [address]- 8304 14 Nov, 2013 [facility] [place] [facility] [address] [id number] [place] [address]- 9054 14 Nov, 2013 [facility] [place] [facility] [address] [id number] [place] [address]- 5581 13 Nov, 2013 [facility] [place] [facility] [address] [id number] [place] [address]- 1037 13 Nov, 2013 [facility] [place] [facility] [address] [id number] [place] [address]- 2096 Nov, [facility] [place] [facility] [address] [id number] [place] [address]- 2508 11 Nov, 2013 [facility] [place] [facility] [address] [id number] [place] [address]- 3577 Nov, 2013 [facility] [place] [facility] [address] [id number] [place] [address]- 8822 Nov, 2013 [facility] [place] [facility] [address] [id number] [place] [address]- 0580 Nov, 2013 [facility] [place] [facility] [address] [id number] [place] [address]- 9703 07 Nov, 2013 [facility] [place] [facility] [address] [id number] [place] [address]- 6074 30 Oct, 2013 [facility] [place] [facility] [address] [id number] [place] [address]- 3193 30 Oct, 2013 [facility] [place] [facility] [address] [id number], [place] [address]- 3928 26 Sep, 2013 [facility] [place] [facility] [address] [id number] [place] [address]- 5498 26 Sep, 2013 [facility] [place] [facility] [address] [id number] [place] [address]- 0416 22 Oct, 2013 [facility] [place] [facility] [address] [id number], [place] [address]- 1584 22 Sep, 2013 [facility] [place] [facility] [address] [id number], [place] [address]- 2547 18 Sep, 2013 [facility] [place] [facility] [address] [id number], [place] [address] 2546 18 Sep, 2013 [facility] [place] [facility] [address] [id number], [place] [address]- 4592 18 Sep, 2013 [facility] [place] [facility] [address] [id number], [place] [address]- 2549 18 Sep, 2013 [facility] [place] [facility] [address] [id number] [place] [address]- 5893 Oct, [facility] [place] [facility] [address] [id number] [place] [address]- 2891 Oct, [facility] [place] [facility] [address] [id number] [place] [address]- 9633 Oct, [facility] [place] [facility] [address] [id number] [place] [address]- 3344 Oct, [facility] [place] [facility] [address] [id number] [place] [address]- 5538 Sep, [facility] [place] [facility] [address] [id number] [place] [address]- 2358 Sep, [facility] [place] [facility] [address] [id number] [place] [address]- 6152 Sep, [facility] [place] [facility] [address] [id number] [place] [address]- 2418 Sep, [facility] [place] [facility] [address] [id number] [place] [address]- 4042 Sep, [facility] [place] [facility] [address] [id number] [place] [address]- 5238 Sep, [facility] [place] [facility] [address] [id number] [place] [address]- 9305 Sep, [facility] [place] [facility] [address] [id number] [place] [address]- 8515 Sep, [facility] [place] [facility] [address] [id number] [place] [address]- 8795 Sep, [facility] [place] [facility] [address] [id number] [place] [address]- 2702 Sep, [facility] [place] [facility] [address] [id number] [place] [address]- 2541 Sep, [facility] [place] [facility] [address] [id number] [place] [address]- 2731 Sep, [facility] [place] [facility] [address] [id number] [place] [address]- 3025 Sep, [facility] [place] [facility] [address] [id number] [place] [address]- 4380 Sep, [facility] [place] [facility] [address] [id number] [place] [address]- 3365 Sep, [facility] [place] [facility] [address] [id number] [place] [address]- 2669 Sep, [facility] [place] [facility] [address] [id number] [place] [address]- 7066 Sep, [facility] [place] [facility] [address] [id number] [place] [address]- 2287 Sep, [facility] [place] [facility] [address] [id number] [place] [address]- 2827 Aug, [facility] [place] [facility] [address] [id number] [place] [address]- 2988 Aug, [facility] [place] [facility] [address] [id number] [place] [address]- 3143 Aug, [facility] [place] [facility] [address] [id number] [place] [address]- 1833 Aug, [facility] [place] [facility] [address] [id number] [place] [address]- 1072 Aug, [facility] [place] [facility] [address] [id number] [place] [address]- 3662 Aug, [facility] [place] [facility] [address] [id number] [place] [address]- 0460 Jul, [facility] [place] [facility] [address] [id number] [place] [address]- 6413 Jul, [facility] [place] [facility] [address] [id number] [place] [address]- 6929 Jul, [facility] [place] [facility] [address] [id number] [place] [address]- 2821 Jul, [facility] [place] [facility] [address] [id number] [place] [address]- 4148 June, [facility] [place] [facility] [address] [id number] [place] [address]- 6523 June, [facility] [place] [facility] [address] [id number] [place] [address]- 7714 June, [facility] [place] [facility] [address] [id number] [place] [address]- 2304 June, [facility] [place] [facility] [address] [id number] [place] [address]- 4111 June, [facility] [place] [facility] [address] [id number] [place] [address]- 2773 June, [facility] [place] [facility] [address] [id number] [place] [address]- 6861 June, [facility] [place] [facility] [address] [id number] [place] [address]- 2808 May, [facility] [place] [facility] [address] [id number] [place] [address]- 7154 May, [facility] [place] [facility] [address] [id number] [place] [address]- 1041 May, [facility] [place] [facility] [address] [id number] [place] [address]- 5832 May, [facility] [place] [facility] [address] [id number] [place] [address]- 0002 May, [facility] [place] [facility] [address] [id number] [place] [address]- 5719 May, [facility] [place] [facility] [address] [id number] [place] [address]- 9128 Apr, [facility] [place] [facility] [address] [id number] [place] [address]- 1842 Apr, [facility] [place] [facility] [address] [id number] [place] [address]- 5576 28 Apr, 2013 [facility] [place] [facility] [address] [id number] [place] [address]- 5978 28 Apr, 2013 [facility] [place] [facility] [address] [id number] [place] [address]- 9956 14 Apr, 2013 [facility] [place] [facility] [address] [id number] [place] [address]- 0464 14 Apr, 2013 [facility] [place] [facility] [address] [id number] [place] [address]- 2773 Apr, [facility] [place] [facility] [address] [id number] [place] [address]- 6398 Apr, [facility] [place] [facility] [address] [id number] [place] [address]- 0562 Apr, [facility] [place] [facility] [address] [id number] [place] [address]- 6552 10 Apr, 2013 [facility] [place] [facility] [address] [id number] [place] [address]- 6941 04 Apr, 2013 [facility] [place] [facility] [address] [id number] [place] [address]- 1618 04 Apr, 2013 [facility] [place] [facility] [address] [id number] [place] [address]- 4725 Apr, [facility] [place] [facility] [address] [id number] [place] [address]- 0976 Apr, [facility] [place] [facility] [address] [id number] [place] [address]- 2394 Mar, [facility] [place] [facility] [address] [id number] [place] [address]- 7319 Mar, [facility] [place] [facility] [address] [id number] [place] [address] 05 Mar, 2013 [facility] [place] [facility] [address] [id number] [place] [address] Feb, [facility] [address] [id number] [place] [address] Feb, [facility] [place] [facility] [address] [id number] [place] [address] Feb, [facility] [place] [facility] [address] [id number] [place] [address] Feb, [facility] [place] [facility] [address] [id number] [place] [address] Feb, [facility] [place] [facility] [address] [id number] [place] [address] Feb, [facility] [place] [facility] [address] [id number] [place] [address] Feb, [facility] [place] [facility] [address] [id number] [place] [address] Feb, [facility] [place] [facility] [address] [id number] [place] [address] Feb, [facility] [place] [facility] [address] [id number] [place] [address] Feb, [facility] [place] [facility] [address] [id number] [place] [address] Jan, [facility] [place] [facility] [address] [id number], [place] [address] Jan, [facility] [place] [facility] [address] [id number], [place] [address] Jan, [facility] [place] [facility] [address] [id number] [place] [address] Jan, [facility] [place] [facility] [address] [id number] [place] [address] Jan, [facility] [place] [facility] [address] [id number] [place] [address] Jan, [facility] [place] [facility] [address] [id number] [place] [address] 23 Jan, 2012 [facility] [address] [id number] [place] [address] 23 Jan, 2012 [facility] [address] [id number] [place] [address] 40[address] Jan, 2012 [facility] [address] [id number] [place] [address] 19 Jan, 2012 [facility] [place] [facility] [address] [id number] [place] [address] 17 Jan, 2012 [facility] [address] [id number] [place] [address] 17 Jan, 2012 [facility] [address] [id number] [place] [address] 1514 16 Jan, 2012 [facility] [address] [id number] [place] [address] Jan, [facility] [address] [id number] [place] [address] 80[address] Jan, [facility] [address] [id number] [place] [address] Jan, [facility] [address] [facility] [id number] [place] [address] Jan, [facility] [place] [facility] [address] [id number] [place] [address] 05 Jan, 2013 [facility] [place] [facility] [address] [id number] [place] [address]- 9469 05 Jan, 2013 [facility] [place] [facility] [address] [id number] [place] [address] 05 Jan, 2013 [facility] [place] [facility] [address] [id number] [place] [address]26 05 Jan, 2013 [facility] [place] [facility] [address] [id number] [place] [address] Dec, [facility] [place] [facility] [address] [id number] [place] [address]- [address] Dec, [facility] [place] [facility] [address] [id number] [place] [address] Dec, [facility] [place] [facility] [address] [id number] [place] [address] Dec, [facility] [place] [facility] [address] [id number] [place] [address] Dec, [facility] [place] [facility] [address] [id number] [place] [address] Dec, [facility] [place] [facility] [address] [id number] [place] [address] 8840 Dec, [facility] [place] [facility] [address] [id number] [place] [address] 1267 Dec, [facility] [place] [facility] [address] [id number] [place] [address] 6887 Dec, [facility] [place] [facility] [address] [id number] [place] [address] Dec, [facility] [place] [facility] [address] [id number] [place] [address] Nov, [facility] [place] [facility] [address] [id number] [place] [address]- [address] Nov, [facility] [place] [facility] [address] [id number], [place] [address] Nov, [facility] [place] [facility] [address] [id number] [place] [address] 7980 Nov, [facility] [place] [facility] [address] [id number] [place] [address] 4645 Nov, [facility] [place] [facility] [address] [id number], [place] [address] Nov, [facility] [place] [facility] [address] [id number], [place] [address] Nov, [facility] [place] [facility] [address] [id number] [place] [address] 6[address] Nov, [facility] [place] [facility] [address] [id number] [place] [address]- 1496 Nov, [facility] [place] [facility] [address] [id number] [place] [address] 2546 Nov, [facility] [place] [facility] [address] [id number] [place] [address]- 1081 Oct, [facility] [place] [facility] [address] [id number] [place] [address] 2949 Oct, [facility] [place] [facility] [address] [id number] [place] [address]- [address] Oct, [facility] [place] [facility] [address] [id number] [place] [address] 8511 Oct, [facility] [place] [facility] [address] [id number] [place] [address]- 0850 Oct, [facility] [place] [facility] [address] [id number] [place] [address]- [address]879 Sep, [facility] [place] [facility] [address] [id number] [place] [address]- 49[address] Sep, [facility] [place] [facility] [address] [id number] [place] [address]- 59[address] Aug, [facility] [place] [facility] [address] [id number] [place] [address]- 4230 Aug, [facility] [place] [facility] [address] [id number] [place] [address]- 4[address] Aug, [facility] [place] [facility] [address] [id number] [place] [address]- 0897 Aug, [facility] [place] [facility] [address] [id number] [place] [address]- 2543 Aug, [facility] [place] [facility] [address] [id number] [place] [address]- 9293 Aug, [facility] [address] [id number] [place] [address]- 2092 Aug, [facility] [address] [id number] [place] [address] Jul, [facility] [address] [id number] [place] [address] Jul, [facility] [address] [id number] [place] [address] June, [facility] [address] [id number] [place] [address] June, [facility] [address] [id number] [place] [address] June, [facility] [address] [id number] [place] [address] June, [facility] [address] [id number] [place] [address] June, [facility] [address] [id number] [place] [address] June, [facility] [address] [id number] [place] [address] June, [facility] [address] [id number] [place] [address] 25[address] June, [facility] [address] [id number] [place] [address] 0146 June, [facility] [address] [id number] [place] [address]006 June, [facility] [address] [id number] [place] [address] 4686 June, [facility] [address] [id number] [place] [address] May, [facility] [address] [id number] [place] [address] 6[address] May, [facility] [address] [id number] [place] [address] May, [facility] [address] [id number] [place] [address]- 5950 May, [facility] [address] [id number] [place] [address] 0607 Apr, [facility] [address] [id number] [place] [address] 8868 Apr, [facility] [address] [id number] [place] [address] 3430 Apr, [facility] [address] [id number] [place] [address] 76[address] Mar, [facility] [address] [id number], [place] [address] Mar, [facility] [address] [id number] [place] [address] 3548 Feb, [facility] [address] [id number] [place] [address] 7638 Feb, [facility] [address] [id number] [place] [address] 9137 Feb, [facility] [place] [facility] [address] [id number], [place] [address] Feb, [facility] [place] [facility] [address] [id number] [place] [address] 60[address] Feb, [facility] [place] [facility] [address] [id number] [place] [address]- 8600 14 Feb, 2012 [facility] [place] [facility] [address] [id number] [place] [address] 2151 Feb, [facility] [place] [facility] [address] [id number] [place] [address]- 9048 31 Jan, 2012 [facility] [place] [facility] [address] [id number] [place] [address]- 0196 31 Jan, 2012 [facility] [place] [facility] [address] [id number] [place] [address]- 3876 28 Jan, 2012 [facility] [place] [facility] [address] [id number] [place] [address]- 3736 17 Jan, 2012 [facility] [place] [facility] [address] [id number] [place] [address] 0236 17 Jan, 2012 [facility] [place] [facility] [address] [id number] [place] [address]- 1437 11 Jan, 2012 [facility] [place] [facility] [address] [id number] [place] [address]- 8[address] Jan, [facility] [place] [facility] [address] [id number] [place] [address]- 5915 10 Jan, 2012 [facility] [place] [facility] [address] [id number] [place] [address]- 7934 10 Jan, 2012 [facility] [place] [facility] [address] [id number] [place] [address]- 5071 03 Jan, 2012 [facility] [place] [facility] [address] [facility] [id number] [place] [address]- 0794 Jan, [facility] [place] [facility] [address] [id number] [place] [address]- 4739 Dec, [facility] [place] [facility] [address] [id number] [place] [address]- 9017 Dec, [facility] [place] [facility] [address] [id number] [place] [address]- 0397 Dec, [facility] [place] [facility] [address] [facility] [id number] [place] [address]- 5[address] 05 Dec, 2011 [facility] [place] [facility] [address] [facility] [id number] [place] [address]- 2670 Nov, [facility] [place] [facility] [address] [id number] [place] [address]- 1435 22 Nov, 2011 [facility] [place] [facility] [address] [id number] [place] [address]- 3337 08 Nov, 2011 [facility] [place] [facility] [address] [id number] [place] [address]- 2866 27 Oct, 2011 [facility] [place] [facility] [address] [id number] [place] [address]- 1416 24 Oct, 2011 [facility] [place] [facility] [address] [id number] [place] [address] 2543 21 Oct, 2011 [facility] [place] [facility] [address] [id number] [place] [address]- 8406 10 Oct, 2011 [facility] [place] [facility] [address] [id number] [place] [address]- 4361 07 Oct, 2011 [facility] [place] [facility] [address] [id number] [place] [address]- 3339 Oct, [facility] [place] [facility] [address] [id number] [place] [address]- 1341 Oct, [facility] [place] [facility] [address] [id number] [place] [address]- 8231 29 Sep, 2011 [facility] [place] [facility] [address] [id number] [place] [address]- 1822 Sep, [facility] [place] [facility] [address] [id number] [place] [address]- 5001 Sep, [facility] [place] [facility] [address] [id number] [place] [address]- 6476 Sep, [facility] [place] [facility] [address] [id number] [place] [address]- 3861 Sep, [facility] [place] [facility] [address] [id number] [place] [address]- 4212 Aug, [facility] [place] [facility] [address] [id number] [place] [address]- 2726 26 Aug, 2011 [facility] [place] [facility] [address] [id number] [place] [address]- 8691 17 Aug, 2011 [facility] [place] [facility] [address] [id number] [place] [address]- 5606 16 Aug, 2011 [facility] [place] [facility] [address] [id number] [place] [address]- 1046 Aug, [facility] [place] [facility] [address] [id number] [place] [address]- 8782 Aug, [facility] [place] [facility] [address] [id number] [place] [address]- 0530 Aug, [facility] [place] [facility] [address] [id number] [place] [address]- 8010 Jul, [facility] [place] [facility] [address] [id number] [place] [address]- 0174 Jul, [facility] [place] [facility] [address] [id number] [place] [address]- 9870 Jul, [facility] [place] [facility] [address] [id number] [place] [address]- 7910 Jul, [facility] [place] [facility] [address] [id number] [place] [address]- 9506 Jul, [facility] [place] [facility] [address] [id number] [place] [address]- 9306 Jul, [facility] [place] [facility] [address] [id number] [place] [address]- 4259 Jul, [facility] [place] [facility] [address] [id number] [place] [address]- 3790 Jul, [facility] [place] [facility] [address] [id number] [place] [address]- 8640 05 Jul, 2011 [facility] [place] [facility] [address] [id number] [place] [address]- 7619 June, [facility] [place] [facility] [address] [id number] [place] [address]- 9670 June, [facility] [address] [id number] [place] [address]- 6472 June, [facility] [address] [id number] [place] [address]- 6836 June, [facility] [address] [id number] [place] [address]- 3545 June, [facility] [address] [id number] [place] [address]- 9697 June, [facility] [address] [id number] [place] [address]- 4329 June, [facility] [address] [id number] [place] [address]- 4407 June, [facility] [address] [id number] [place] [address]- 1804 May, [facility] [address] [id number] [place] [address]- 5530 May, [facility] [address] [id number] [place] [address]- 6217 May, [facility] [address] [id number] [place] [address]- 7741 May, [facility] [address] [id number] [place] [address]- 2635 16 May, 2011 [facility] [address] [id number] [place] [address]- 7460 16 May, 2011 [facility] [address] [id number] [place] [address] May, [facility] [address] [id number] [place] [address] Apr, [facility] [address] [id number] [place] [address]- 2158 Apr, [facility] [address] [id number] [place] [address]- 4891 Apr, [facility] [place] [facility] [address] [id number] [place] [address]- 5976 19 Apr, 2011 [facility] [place] [facility] [address] [id number] [place] [address]- 0259 Apr, [facility] [place] [facility] [address] [id number] [place] [address]- 8686 Apr, [facility] [place] [facility] [address] [id number] [place] [address]- 7961 Apr, [facility] [place] [facility] [address] [id number] [place] [address]- 1055 Mar, [facility] [place] [facility] [address] [facility] [id number] [place] [address]- 9552 20 Mar, 2011 [facility] [place] [facility] [address] [id number] [place] [address]- 6161 14 Mar, 2011 [facility] [place] [facility] [address] [id number] [place] [address]- 6817 13 Mar, 2011 [facility] [place] [facility] [address] [facility] [id number] [place] [address]- 9305 09 Mar, 2011 [facility] [place] [facility] [address] [id number] [place] [address]- 4819 Mar, [facility] [place] [facility] [address] [id number], [place] [address]- 2879 Mar, [facility] [place] [facility] [address] [id number] [place] [address]- 2431 Feb, [facility] [place] [facility] [address] [id number] [place] [address]- 9049 Feb, [facility] [place] [facility] [address] [id number] [place] [address]- 5456 Feb, [facility] [place] [facility] [address] [id number] [place] [address]- 7136 Feb, [facility] [address] [id number] [place] [address]- 6826 Feb, [facility] [address] [id number] [place] [address]- 5646 Feb, [facility] [address] [id number] [place] [address]- 1532 Feb, [facility] [address] [id number] [place] [address] 2549 Feb, [facility] [address] [id number] [place] [address]- 0708 Feb, [facility] [address] [id number] [place] [address]- 9893 Feb, [facility] [address] [id number] [place] [address]- 0356 Jan, [facility] [address] [id number] [place] [address]- 0026 Jan, [facility] [address] [id number] [place] [address]- 4080 Jan, [facility] [address] [id number] [place] [address]- 1203 Jan, [facility] [address] [id number] [place] [address] 2546 Jan, [facility] [address] [id number] [place] [address]- 2548 Jan, [facility] [place] [facility] [address] [id number] [place] [address] 2546 15 Jan, 2011 [facility] [place] [facility] [address] [id number] [place] [address]- 2546 15 Jan, 2011 [facility] [address] [id number] [place] [address] 2548 08 Jan, 2011 [facility] [place] [facility] [address] [id number] [place] [address]- 1252 Jan, [facility] [place] [facility] [address] [id number] [place] [address] Jan, [facility] [place] [facility] [address] [id number] [place] Dec, [facility] [place] [facility] [address] [id number] [place] [address]- 1609 Dec, [facility] [place] [facility] [address] [id number] [place] [address]- 0487 Dec, [facility] [place] [facility] [address] [id number] [place] [address]- 8416 Dec, [facility] [place] [facility] [address] [id number] [place] [address]- 5777 Dec, [facility] [place] [facility] [address] [id number] [place] [address]- 9147 Dec, [facility] [place] [facility] [address] [id number] [place] [address]- 9502 Dec, [facility] [place] [facility] [address] [id number] [place] [address]- 6489 Dec, [facility] [place] [facility] [address] [id number] [place] [address]- 9931 Dec, [facility] [place] [facility] [address] [id number], [place] [address]- 1306 Nov, [facility] [place] [facility] [address] [id number] [place] [address]- 3398 Nov, [facility] [place] [facility] [address] [id number] [place] [address]- 5978 Nov, [facility] [place] [facility] [address] [id number] [place] [address]- 1305 Nov, [facility] [place] [facility] [address] [id number], [place] [address]- 2973 Nov, [facility] [address] [facility] [id number], [place] [address]- 4616 Nov, [facility] [address] [facility] [id number], [place] [address]- 7456 Aug, [facility] [address] [facility] [id number], [place] [address]- 3426 14 Feb, 2010 [facility] [address] [id number], [place] [address]- 9189 14 Jan, 2010 [facility] [address] [facility] [id number] [place] [address]- 0006 Jan, [facility] [address] [facility] [id number], [place] [address]- 2306 Jan, [facility] [address] [facility] [id number], [place] [address]- 0376 Jan, [facility] [address] [facility] [id number], [place] [address]- 2795 Jan, [facility] [address] [facility] [id number], [place] [address]- 4282 Dec, [facility] [address] [facility] [id number], [place] [address]- 3487 Dec, [facility] [address] [facility] [id number], [place] [address]- 4249 Dec, [facility] [address] [facility] [id number], [place] [address]- 2113 Dec, [facility] [address] [facility] [id number], [place] [address]- 9047 Nov, [facility] [address] [facility] [id number], [place] [address]- 8859 Nov, [facility] [address] [facility] [id number], [place] [address]- 1386 Nov, IMMUNIZATIONS No Known Immunizations SOCIAL HISTORY Never Assessed REASON FOR VISIT Fentanyl and Lyrica 03/11 PLAN OF CARE VITAL SIGNS MEDICATIONS Medication Instructions Dosage Frequency Start Date End Date Duration Status Fentanyl 50 MCG/HR Transdermal 72hrs 1 patch to skin Feb, 30 days Active Lyrica 150 MG Orally 3 times a day 1 capsule 8h Active RESULTS No Results PROCEDURES No Known [...]
--- OUTSIDE RECORDS SUMMARY | 2018-01-13 21:41 | XMS REPORT ---
Author Author WYATT SOTO [facility] eClinicalWorks Address Unknown Phone Unavailable Care Team Providers [facility] Worker Name Role Phone WYATT SOTO CP Unavailable [...] Date End Date Status Dosage Oxycodone HCl [facility] [address]-37 10 MG Orally, senior care care facility every 4 hrs Feb 14, 2015 1 capsule as needed Ativan [facility] [address]-29 1 MG Orally, intermediate 2 times a day Feb 02, 2015 1 tablet Results No Known Results Summary Purpose eClinicalWorks Submission
--- OUTSIDE RECORDS SUMMARY | 2018-01-13 21:42 | XMS REPORT ---
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 Name Role Phone WYATT SOTO Unavailable PROBLEMS Type Condition ICD9-CM Code PXF38-[id number] Code Onset Dates Condition Status SNOMED Code Problem Left hip pain M25.552 Active 17455576 Problem Other chronic pain G89.29 Active 80523043 Problem Chronic hepatitis C without hepatic coma B18.2 Active 710572020 Problem Other obesity due to excess calories E66.09 Active 338648983 Problem Body mass index (BMI) of 34.0-34.9 in adult Z68.34 Active 355826333 Problem Other psychoactive substance dependence, 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 Active 9904252 Problem 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, 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 320844467 Problem Gastroesophageal reflux disease, esophagitis presence not specified K21.9 Active 181595163 Problem Venous insufficiency (chronic) (peripheral) I87.2 Active 120747916 Problem Unspecified episodic mood disorder F39 Active 08545793 Problem Hypertension I10 Active 46491888 Problem Combined drug dependence excluding opioids, 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 Active 121200146 Problem Arthritis M19.90 Active 9976303 Problem Other disorder of impulse control F63.89 Active 51774444 Problem Anxiety F41.9 Active 34709781 ALLERGIES No Information ENCOUNTERS Encounter Location Date Diagnosis [facility] [address] [facility] [id number] [address] Jul, [facility] [address], [place] [address] Jul, [facility] [address], [place] [address] Jul, Arthritis M19.90 [facility] [id number] [place] [address] 79708- 4908 Jul, Left hip pain M25.552 ; Hypertension I10 ; Other obesity due to excess calories E66.09 and Body mass index (BMI) of 34.0-34.9 in adult Z68.34 [facility] [address], [place] [address] Jul, Unspecified episodic mood disorder F39 [facility] [id number] [place] [address] 84835- 5879 June, Gastroesophageal reflux disease, esophagitis presence not specified K21.9 [facility] [id number] [place] [address] 35069- 2091 June, [facility] [id number] [place] [address] 92772- 1594 June, [facility] [id number] [place] [address] 24534- 7533 June, Arthritis M19.90 [facility] [id number] [place] [address] 64867- 8188 June, [facility] [id number] [place] [address] 69200- 9648 June, [facility] [address], [place] [address] 78[address] June, Unspecified episodic mood disorder F39 [facility] [id number] [place] [address] 49839- 5322 May, Unspecified episodic mood disorder F39 [facility] [address], [place] [address] May, [facility] [id number] [address] May, Arthritis M19.90 [facility] [address], [place] [address] May, Dysuria R30.0 ; Abscess L02.91 and Acute cystitis without hematuria N30.00 [facility] [id number] [place] [address] 44323- 6706 May, Other disorder of impulse control F63.89 ; Unspecified episodic mood disorder F39 ; Combined drug dependence excluding opioids, 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 ; Anxiety F41.9 and Other psychoactive substance dependence, uncomplicated F19.20 [facility] [id number] [place] [address] 41352- 2346 May, [facility] [id number] [place] [address] 01407- 4745 May, Other disorder of impulse control F63.89 ; Unspecified episodic mood disorder F39 ; Combined drug dependence excluding opioids, 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 ; Other psychoactive substance dependence, 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 and Anxiety F41.9 [facility] [id number] [place] [address] 45686- 2806 May, Other chronic pain G89.29 ; Left hip pain M25.552 ; Hypertension I10 ; 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, 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 and Unspecified episodic mood disorder F39 [facility] [id number] [place] [address] 21610- 7164 Apr, [facility] [id number] [place] [address] 55907 -2712 Apr, Neck pain M54.2 ; Left hip pain M25.552 and Fall, initial encounter W19.XXXA [facility] [id number] [place] [address] 13826- 6914 Apr, Unspecified episodic mood disorder F39 ; Combined drug dependence excluding opioids, 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 ; Anxiety F41.9 ; Other psychoactive substance dependence, 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 and Other disorder of impulse control F63.89 [facility] [id number] [place] [address] 47050- 7918 Apr, [facility] [id number] [place] [address] 26624- 0467 Apr, Arthritis M19.90 and Unspecified episodic mood disorder F39 [facility] [id number] [place] [address] 70423- 8786 Apr, Unspecified episodic mood disorder F39 [facility] [address], [place] [address] 6776 Apr, [facility] [id number] [place] [address] 08520- 1246 Apr, [facility] [id number] [place] [address] 12425- 4460 Apr, Unspecified episodic mood disorder F39 ; Combined drug dependence excluding opioids, 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 ; Anxiety F41.9 ; Other psychoactive substance dependence, 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 and Other disorder of impulse control F63.89 [facility] [id number] [place] [address] 39847- 6826 Mar, Unspecified episodic mood disorder F39 [facility] [id number] [place] [address] 67207- 5857 Mar, Gastroesophageal reflux disease, esophagitis presence not specified K21.9 [facility] [id number] [place] [address] 31230- 1610 Mar, Arthritis M19.90 and Unspecified episodic mood disorder F39 [facility] [id number] [place] [address] 48763- 4596 Feb, [facility] [id number] [place] [address] 12181 2543 Feb, [facility] [id number] [place] [address] 29205- 6926 Feb, [facility] [id number] [place] [address] 74795- 8386 Feb, Arthritis M19.90 [facility] [id number] [place] [address] 29828- 4394 Feb, Non-pressure chronic ulcer of right calf, 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 ; Unspecified episodic mood disorder F39 and Left hip pain M25.552 [facility] [id number] [place] [address] 86278- 3085 Feb, [facility] [id number] [place] [address] 62801- 9224 Feb, [facility] [id number] [place] [address] 38474- 4177 Jan, Arthritis M19.90 [place] [address] 22184- 0687 Jan, Left hip pain M25.552 and Non-pressure chronic ulcer of right calf, 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 [place] [id number] [place] [address] 34910- 4035 Jan, Chronic hepatitis C without hepatic coma B18.2 [place] [id number] [place] [address] 49021- 0770 Jan, Encounter for immunization Z23 ; Venous insufficiency ( chronic) (peripheral) I87.2 ; Non-pressure chronic ulcer of unspecified calf limited to breakdown of skin L97.201 and Gastroesophageal reflux disease, esophagitis presence not specified K21.9 [place] [id number] [place] [address] 60344- 7696 Jan, [place] [id number] [place] [address] 01577- 2718 Jan, Chronic hepatitis C without hepatic coma B18.2 and Encounter for immunization Z23 [place] [id number] [place] [address] 92868- 0213 Jan, Arthritis M19.90 [place] [id number] [place] [address] 25120- 1442 Jan, [place] [id number] [place] [address] 95497- 0983 Dec, [facility] [id number] [place] [address] 02473- 8604 Dec, Unspecified episodic mood disorder F39 [facility] [id number] [place] [address] 95879- 7692 Dec, Arthritis M19.90 [facility] [id number] [place] [address] 31581- 6307 Dec, Arthritis M19.90 [facility] [id number] [place] [address] 24077- 9292 Nov, [facility] [id number] [place] [address] 98097- 9143 Nov, [facility] [id number] [place] [address] 69536- 9489 Nov, Other psychoactive substance dependence, 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 ; 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, 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 and Chronic hepatitis C without hepatic coma B18.2 [facility] [id number] [place] [address] 43218- 8251 Nov, Arthritis M19.90 [facility] [id number] [place] [address] 65457 -2362 Oct, Partial thickness burn of abdomen, initial encounter T21.22XA [facility] [id number] [place] [address] 22271- 6724 Oct, [facility] [id number] [place] [address] 83637- 9430 Sep, Arthritis M19.90 [facility] [id number] [place] [address] 10199- 9757 Sep, [facility] [id number] [place] [address] 01498- 7573 Sep, [facility] [id number] [place] [address] 48336- 0218 Sep, Unspecified episodic mood disorder F39 ; Chronic hepatitis C without hepatic coma B18.2 and Left hip pain M25.552 [facility] [id number] [place] [address] 32635- 9810 Sep, Arthritis M19.90 and Left hip pain M25.552 [facility] [id number] [place] [address] 18108- 3643 Aug, [facility] [id number] [place] [address] 65188- 1999 Aug, [facility] [id number] [place] [address] 15676- 8466 Aug, Chronic hepatitis C without hepatic coma B18.2 [facility] [id number] [place] [address] 13217- 9359 Aug, [facility] [id number] [place] [address] 22628- 4034 Aug, Chronic hepatitis C without hepatic coma B18.2 [facility] [id number] [place] [address] 09886- 8866 Aug, 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, 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 [facility] [id number] [place] [address] 36847- 2704 Aug, [facility] [id number] [place] [address] 97957- 5202 Aug, Chronic hepatitis C without hepatic coma B18.2 and Hypertension I10 [facility] [address], [place] [address]- 4335 Jul, [facility] [id number] [place] [address] 12057- 3333 June, [facility] [id number], [place] [address]- 5032 Apr, Fibromyalgia M79.7 ; Left hip pain M25.552 and Decubitus ulcer of sacral region, stage 1 L89.151 [facility] [address] [place] [address] 83598- 4039 Apr, [facility] [id number] [place] [address] 70861- 1419 Apr, [facility] [id number] [place] [address] 90174- 1339 Feb, [facility] [id number] [place] [address] 54923- 8947 Dec, Anxiety F41.9 ; Combined drug dependence excluding opioids, 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 and Unspecified episodic mood disorder F39 [facility] [id number] [place] [address] 27884- 9373 Dec, [facility] [id number] [place] [address] 80771- 6544 Nov, [facility] [id number] [place] [address] 16527- 7012 Nov, [facility] [id number] [place] [address] 59071- 2119 Nov, Other disorder of impulse control F63.89 and Anxiety F41.9 [facility] [id number] [place] [address] 85624- 3451 Oct, [facility] [id number] [place] [address] 66860 -9943 14 Oct, 2015 Open wound of left thigh, initial encounter S71.102A [facility] [address] [place] [address] 56425- 4224 Oct, [facility] [id number] [place] [address] 47772- 3612 Sep, Unspecified episodic mood disorder F39 ; Other disorder of impulse control 312.39 ; Combined drug dependence excluding opioids, 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 and Anxiety F41.9 [facility] [id number] [place] [address] 83996- 5597 Sep, Other disorder of impulse control 312.39 ; Combined drug dependence excluding opioids, 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 ; Anxiety F41.9 and Unspecified episodic mood disorder F39 [facility] [address], [place] [address]- 8414 Sep, Other chronic pain G89.29 [facility] [id number] [place] [address] 39769- 5314 Sep, [facility] [id number] [place] [address] 70404- 5379 Sep, [facility] [id number] [place] [address] 25297- 8314 Aug, [facility] [id number] [place] [address] 17584- 7341 Aug, [facility] [id number] [place] [address] 99109- 4642 Aug, [facility] [address] [place] [address] 08350- 0081 Jul, [facility] [id number] [place] [address] 41237- 2352 Jul, [facility] [address] [place] [address] 69319- 2747 Jul, [facility] [id number] [place] [address] 23836- 8761 Jul, Arthritis M19.90 ; Chronic hepatitis C without hepatic coma B18.2 and Left hip pain M25.552 [facility] [address] [place] [address] 67159- 0781 Jul, Left knee pain M25.562 [facility] [address], [place] [address]- 6719 Jul, Combined drug dependence excluding opioids, 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 ; Anxiety F41.9 ; Other disorder of impulse control 312.39 and Unspecified episodic mood disorder F39 [facility] [address], [place] [address]- 3737 13 Jul, 2015 Left knee pain M25.562 [facility] [id number] [place] [address] 19899- 1058 08 Jul, 2015 Left knee pain M25.562 and Left hip pain M25.552 [facility] [id number] [place] [address] 74874- 7500 Jul, [facility] [address] [place] [address] 24872- 4082 June, [facility] [id number] [place] [address] 64111- 3446 June, Combinations of drug dependence excluding opioid type drug, unspecified abuse 304.80 ; Other disorder of impulse control 312.39 ; Unspecified episodic mood disorder F39 and Anxiety F41.9 [facility] [id number] [place] [address] 58542- 4807 June, Other fatigue R53.83 ; Headache R51 and Left knee pain M25.562 [facility] [id number] [place] [address] 90731- 6027 June, Unspecified episodic mood disorder F39 ; Combinations of drug dependence excluding opioid type drug, unspecified abuse 304.80 ; Other disorder of impulse control 312.39 and Anxiety F41.9 [facility] [address] [place] [address] 61361- 4004 June, Anxiety F41.9 [facility] [address] [place] [address] 33017- 6120 June, Pain in left knee M25.562 [facility] [id number] [place] [address] 72565- 1844 June, Anxiety F41.9 and Combinations of drug dependence excluding opioid type drug, unspecified abuse 304.80 [facility] [id number] [place] [address] 54798- 6486 June, Unspecified episodic mood disorder 296.90 ; Combinations of drug dependence excluding opioid type drug, unspecified abuse 304.80 and Other disorder of impulse control 312.39 [facility] [address] [place] [address] 27602- 6611 June, Anxiety F41.9 and Unspecified episodic mood disorder 296.90 [facility] [id number] [place] [address] 77846- 6337 May, Arthritis M19.90 [facility] [id number] [place] [address] 72460- 5771 May, Arthritis M19.90 [facility] [id number] [place] [address] 71387- 6022 May, Anxiety F41.9 ; Combinations of drug dependence excluding opioid type drug, unspecified abuse 304.80 and Other disorder of impulse control 312.39 [facility] [id number] [place] [address] 58458- 3972 May, Left knee pain M25.562 [facility] [id number] [place] [address] 99244- 4839 May, Arthritis M19.90 [facility] [id number] [place] [address] 05373- 6122 May, [facility] [address] [place] [address] 26598- 8840 May, Anxiety F41.9 ; Unspecified episodic mood disorder 296.90 ; Combinations of drug dependence excluding opioid type drug, unspecified abuse 304.80 and Other disorder of impulse control 312.39 [facility] [id number] [place] [address] 64020- 1322 May, Left knee pain M25.562 [facility] [address] [place] [address] 14496- 8261 May, Left knee pain M25.562 ; Combinations of drug dependence excluding opioid type drug, unspecified abuse 304.80 ; Other disorder of impulse control 312.39 ; Fibromyalgia M79.7 ; Hypertension I10 ; Unspecified episodic mood disorder 296.90 and Left hip pain M25.552 [place] [id number] [place] [address] 03763- 0029 May, Unspecified episodic mood disorder 296.90 ; Other disorder of impulse control 312.39 ; Combinations of drug dependence excluding opioid type drug, unspecified abuse 304.80 and Anxiety F41.9 [place] [id number] [place] [address] 19102- 5444 May, Left knee pain M25.562 ; Combinations of drug dependence excluding opioid type drug, unspecified abuse 304.80 ; Other disorder of impulse control 312.39 ; Fibromyalgia M79.7 ; Hypertension I10 ; Unspecified episodic mood disorder 296.90 and Left hip pain M25.552 [place] [id number] [place] [address] 37993- 5533 May, Anxiety F41.9 ; Unspecified episodic mood disorder 296.90 ; Other disorder of impulse control 312.39 and Combinations of drug dependence excluding opioid type drug, unspecified abuse 304.80 [place] [id number] [place] [address] 75823- 4508 Apr, 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 and 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, implants and grafts, initial encounter T84.82XA [place] [id number] [place] [address] 38352- 3438 Apr, Anxiety F41.9 ; Unspecified episodic mood disorder 296.90 ; Combinations of drug dependence excluding opioid type drug, unspecified abuse 304.80 and Other disorder of impulse control 312.39 [place] [id number] [place] [address] 45116- 8920 Apr, Arthritis M19.90 [place] [id number] [place] [address] 03218- 1336 Apr, Anxiety F41.9 ; Unspecified episodic mood disorder 296.90 ; Combinations of drug dependence excluding opioid type drug, unspecified abuse 304.80 and Other disorder of impulse control 312.39 [facility] [id number] [place] [address] 88158- 4144 17 Apr, 2015 Arthritis M19.90 [facility] [address], [place] [address]- 0347 15 Apr, 2015 [facility] [id number] [place] [address] 08294- 8648 15 Apr, 2015 [facility] [id number] [place] [address] 67514- 7816 14 Apr, 2015 Unspecified episodic mood disorder 296.90 ; Combinations of drug dependence excluding opioid type drug, unspecified abuse 304.80 ; Other disorder of impulse control 312.39 and Anxiety F41.9 [facility] [address] [place] [address] 94899 -3220 11 Apr, 2015 Left knee pain M25.562 [facility] [id number] [place] [address] 31507- 7448 Apr, [facility] [id number] [place] [address] 72053- 9688 29 Mar, 2015 Unspecified episodic mood disorder 296.90 ; Anxiety F41.9 ; Other disorder of impulse control 312.39 and Combinations of drug dependence excluding opioid type drug, unspecified abuse 304.80 [facility] [address] [place] [address] 09457- 4584 Mar, Hyperpigmentation L81.9 [facility] [address] [place] [address] 97384- 5284 Mar, Arthritis M19.90 and Anxiety F41.9 [facility] [id number] [place] [address] 46243- 5867 Mar, Unspecified episodic mood disorder F39 ; Combined drug dependence excluding opioids, 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 ; Other disorder of impulse control F63.89 and Anxiety F41.9 [facility] [address] [place] [address] 67379- 9080 12 Mar, 2015 Well woman exam Z01.419 ; Other fatigue R53.83 ; Hot flashes N95.1 ; Depression, unspecified depression type F32.9 and Body mass index (BMI) of 23.0-23.9 in adult Z68.23 [place] [id number] [place] [address] 17008- 3691 11 Mar, 2015 Unspecified episodic mood disorder 296.90 ; Other disorder of impulse control 312.39 and Anxiety F41.[address] 35986- 9698 11 Mar, 2015 Well woman exam Z01.419 [...] of breast Z12.39 and Limited mobility Z74.09 [place] [id number] [place] [address] [phone] 10 Mar, 2015 [place] [address] [place] [id number] [place] [address] [phone] 10 Mar, [address] [place] [id number] [place] [address] [phone] Mar, [place] [address] [place] [id number] [place] [address] [phone] 03 Mar, 2015 Other specified complication of internal orthopedic prosthetic devices, implants and grafts, initial encounter T84.89XA ; Fibromyalgia M79.7 ; Hypertension I10 ; Anemia D64.9 ; Insomnia G47.00 ; Anxiety F41.9 ; Arthritis M19.90 and Migraine G43.909 [facility] [address] [address]- [address] Mar, [facility] [address] [address]256- 8110 Feb, [facility] [address] [address]- 7772 Feb, Arthritis M19.90 and Anxiety F41.9 [facility] [address] [address]- 1633 Feb, [facility] [address] [address]- 9950 Feb, [facility] [address] [address]- 4168 Feb, [facility] [address] [address]- 5009 Feb, [facility] [address] [address]16- 6194 Feb, Anxiety F41.9 [facility] [address] 9[address]48- 9236 Feb, [facility] [address] 72898- 5206 Feb, [facility] [address] [address]17- 2497 Feb, 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 [id number] 6021 Jan, [facility] [id number] 1417 Jan, [facility] [id number] [place] [address] 226674- 5038 Jan, [facility] [id number], [place] [address]- 2528 Jan, [facility] [id number] [place] [address] 903087- 5992 Jan, [facility] [id number] [place] [address] 00657- 2421 Dec, [facility] [address], [place] [address]- 1365 Dec, Left knee pain M25.562 [facility] [id number] [place] [address] 59154- 1211 Dec, Left knee pain M25.562 [facility] [id number], [place] [address]- 1385 Dec, Fibromyalgia M79.7 ; Hypertension I10 and Arthritis M19.90 [facility] [address], [place] [address]- 8545 Dec, [facility] [id number], [place] [address]- 8908 Dec, [facility] [id number], [place] [address]- 4848 Dec, [facility] [id number], [place] [address]- 7357 Dec, [facility] [id number], [place] [address]- 3670 Nov, 2014 [facility] [address] [id number] [address]- 3[address] Nov, 2014 [facility] [place] [facility] [address] [facility] [id number], [place] [address]- 4607 Nov, 2014 [facility] [address] [facility] [id number], [place] [address]- 9068 Nov, Hypertension I10 [facility] [place] [facility] [address] [id number] [place] [address]- 9336 23 Oct, 2014 [facility] [address] [facility] [id number] [place] [address], [place] [address]- 3008 17 Oct, 2014 [facility] [address] [facility] [id number], [place] [address]- 9415 04 Oct, 2014 [facility] [place] [facility] [id number] [place] [address] 00526- 5293 Oct, 2014 [facility] [address] [facility] [id number], [place] [address]- 0936 Oct, [facility] [id number], [place] [address]- 9065 Sep, [facility] [address] [id number], [place] [address]- 6740 Sep, [facility] [place] [facility] [id number], [place] [address]- 2865 Sep, Hip pain associated with recalled total hip arthroplasty hardware 996.77 [facility] [place] [facility] [address] [facility] [id number] [place] [address]- 9979 Sep, [facility] [place] [facility] [address] [facility] [id number], [place] [address]- 1997 Sep, [facility] [place] [facility] [address] [facility] [id number], [place] [address]- 4524 Sep, [facility] [place] [facility] [address] [facility] [id number] [place] [address]- 3021 Aug, [facility] [place] [facility] [address] [id number] [place] [address]- 2828 Jul, [facility] [place] [facility] [address] [id number] [place] [address]- 7572 June, [facility] [place] [facility] [address] [id number] [place] [address]- 3966 June, [facility] [place] [facility] [address] [id number] [place] [address]- 8209 June, [facility] [place] [facility] [address] [id number] [place] [address]- 4745 June, [facility] [place] [facility] [address] [id number] [place] [address]- 0988 June, [facility] [place] [facility] [address] [id number] [place] [address]- 7785 June, [facility] [place] [facility] [address] [id number] [place] [address]- 3247 May, [facility] [place] [facility] [address] [id number] [place] [address]- 3506 May, [facility] [place] [facility] [address] [id number] [place] [address]- 1771 May, [facility] [place] [facility] [address] [id number] [place] [address]- 7628 Apr, [facility] [place] [facility] [address] [id number] [place] [address]- 3633 Apr, [facility] [place] [facility] [address] [id number] [place] [address]- 9856 Apr, [facility] [place] [facility] [address] [id number] [place] [address]- 3147 Apr, [facility] [place] [facility] [address] [id number] [place] [address]- 8825 Apr, [facility] [place] [facility] [address] [id number] [place] [address]- 1807 13 Apr, 2014 [facility] [place] [facility] [address] [id number] [place] [address]- 5923 Apr, [facility] [place] [facility] [address] [id number] [place] [address]- 2750 Apr, [facility] [place] [facility] [address] [id number] [place] [address]- 0834 Apr, [facility] [place] [facility] [address] [id number] [place] [address]- 1828 Apr, [facility] [place] [facility] [address] [id number] [place] [address]- 5062 Apr, [facility] [place] [facility] [address] [id number] [place] [address]- 4185 Mar, [facility] [place] [facility] [address] [id number] [place] [address]- 9629 Mar, [facility] [place] [facility] [address] [id number] [place] [address]- 5275 Mar, [facility] [place] [facility] [address] [id number] [place] [address]- 3429 Mar, [facility] [place] [facility] [address] [id number] [place] [address]- 8125 Mar, [facility] [place] [facility] [address] [id number] [place] [address]- 9263 Mar, [facility] [place] [facility] [address] [id number] [place] [address]- 0522 Feb, [facility] [place] [facility] [address] [id number] [place] [address]- 3954 Feb, [facility] [place] [facility] [address] [id number] [place] [address]335 Feb, [facility] [place] [facility] [address] [id number] [place] [address]- 8364 Feb, [facility] [place] [facility] [address] [id number] [place] [address]- 0351 Jan, [facility] [place] [facility] [address] [id number] [place] [address]- 5814 Jan, [facility] [place] [facility] [address] [id number] [place] [address]- 1743 Jan, [facility] [place] [facility] [address] [id number] [place] [address]- 7647 Jan, [facility] [place] [facility] [address] [id number] [place] [address]- 6945 Dec, [facility] [place] [facility] [address] [id number] [place] [address]- 7062 Dec, [facility] [place] [facility] [address] [id number] [place] [address]- 3864 Dec, [facility] [place] [facility] [address] [id number] [place] [address]- 7859 Dec, [facility] [place] [facility] [address] [id number] [place] [address]- 8246 Dec, [facility] [place] [facility] [address] [id number] [place] [address]- 6195 Dec, [facility] [place] [facility] [address] [id number] [place] [address]- 1806 Dec, [facility] [place] [facility] [address] [id number], [place] [address]- 2156 Dec, [facility] [place] [facility] [address] [id number] [place] [address]- 1383 Dec, [facility] [place] [facility] [address] [id number] [place] [address]- 4635 Dec, [facility] [place] [facility] [address] [id number] [place] [address]- 3235 Dec, [facility] [place] [facility] [address] [id number] [place] [address]- 1876 31 Nov, 2013 [facility] [place] [facility] [address] [id number] [place] [address]- 5150 28 Nov, 2013 [facility] [place] [facility] [address] [id number] [place] [address]- 5931 28 Nov, 2013 [facility] [place] [facility] [address] [id number] [place] [address]- 8562 17 Nov, 2013 [facility] [place] [facility] [address] [id number] [place] [address]- 9690 17 Nov, 2013 [facility] [place] [facility] [address] [id number] [place] [address]- 0088 15 Nov, 2013 [facility] [place] [facility] [address] [id number] [place] [address]- 6036 15 Nov, 2013 [facility] [place] [facility] [address] [id number] [place] [address]- 6284 15 Nov, 2013 [facility] [place] [facility] [address] [id number] [place] [address]- 0598 15 Nov, 2013 [facility] [place] [facility] [address] [id number] [place] [address]- 3295 14 Nov, 2013 [facility] [place] [facility] [address] [id number] [place] [address]- 2552 14 Nov, 2013 [facility] [place] [facility] [address] [id number] [place] [address]- 1836 14 Nov, 2013 [facility] [place] [facility] [address] [id number] [place] [address]- 7661 14 Nov, 2013 [facility] [place] [facility] [address] [id number] [place] [address]- 2445 13 Nov, 2013 [facility] [place] [facility] [address] [id number] [place] [address]- 0568 13 Nov, 2013 [facility] [place] [facility] [address] [id number] [place] [address]- 4324 Nov, [facility] [place] [facility] [address] [id number] [place] [address]- 7674 11 Nov, 2013 [facility] [place] [facility] [address] [id number] [place] [address]- 3680 Nov, 2013 [facility] [place] [facility] [address] [id number] [place] [address]- 0225 Nov, 2013 [facility] [place] [facility] [address] [id number] [place] [address]- 2295 Nov, 2013 [facility] [place] [facility] [address] [id number] [place] [address]- 2472 07 Nov, 2013 [facility] [place] [facility] [address] [id number] [place] [address]- 1084 30 Oct, 2013 [facility] [place] [facility] [address] [id number] [place] [address]- 0328 30 Oct, 2013 [facility] [place] [facility] [address] [id number], [place] [address]- 2589 26 Sep, 2013 [facility] [place] [facility] [address] [id number] [place] [address]- 2833 26 Sep, 2013 [facility] [place] [facility] [address] [id number] [place] [address]- 2641 22 Oct, 2013 [facility] [place] [facility] [address] [id number], [place] [address]- 8021 22 Sep, 2013 [facility] [place] [facility] [address] [id number], [place] [address]- 254 18 Sep, 2013 [facility] [place] [facility] [address] [id number], [place] [address] 2546 18 Sep, 2013 [facility] [place] [facility] [address] [id number], [place] [address]- 2322 18 Sep, 2013 [facility] [place] [facility] [address] [id number], [place] [address]- 254 18 Sep, 2013 [facility] [place] [facility] [address] [id number] [place] [address]- 3113 Oct, [facility] [place] [facility] [address] [id number] [place] [address]- 9323 Oct, [facility] [place] [facility] [address] [id number] [place] [address]- 6848 Oct, [facility] [place] [facility] [address] [id number] [place] [address]- 3877 Oct, [facility] [place] [facility] [address] [id number] [place] [address]- 6144 Sep, [facility] [place] [facility] [address] [id number] [place] [address]- 5092 Sep, [facility] [place] [facility] [address] [id number] [place] [address]- 8849 Sep, [facility] [place] [facility] [address] [id number] [place] [address]- 6410 Sep, [facility] [place] [facility] [address] [id number] [place] [address]- 7586 Sep, [facility] [place] [facility] [address] [id number] [place] [address]- 5376 Sep, [facility] [place] [facility] [address] [id number] [place] [address]- 2603 Sep, [facility] [place] [facility] [address] [id number] [place] [address]- 1462 Sep, [facility] [place] [facility] [address] [id number] [place] [address]- 3918 Sep, [facility] [place] [facility] [address] [id number] [place] [address]- 5408 Sep, [facility] [place] [facility] [address] [id number] [place] [address]- 2549 Sep, [facility] [place] [facility] [address] [id number] [place] [address]- 1129 Sep, [facility] [place] [facility] [address] [id number] [place] [address]- 1215 Sep, [facility] [place] [facility] [address] [id number] [place] [address]- 2773 Sep, [facility] [place] [facility] [address] [id number] [place] [address]- 5531 Sep, [facility] [place] [facility] [address] [id number] [place] [address]- 8808 Sep, [facility] [place] [facility] [address] [id number] [place] [address]- 0292 Sep, [facility] [place] [facility] [address] [id number] [place] [address]- 0196 Sep, [facility] [place] [facility] [address] [id number] [place] [address]- 4545 Aug, [facility] [place] [facility] [address] [id number] [place] [address]- 2761 Aug, [facility] [place] [facility] [address] [id number] [place] [address]- 0643 Aug, [facility] [place] [facility] [address] [id number] [place] [address]- 9734 Aug, [facility] [place] [facility] [address] [id number] [place] [address]- 1298 Aug, [facility] [place] [facility] [address] [id number] [place] [address]- 2286 Aug, [facility] [place] [facility] [address] [id number] [place] [address]- 8478 Jul, [facility] [place] [facility] [address] [id number] [place] [address]- 5155 Jul, [facility] [place] [facility] [address] [id number] [place] [address]- 0777 Jul, [facility] [place] [facility] [address] [id number] [place] [address]- 4383 Jul, [facility] [place] [facility] [address] [id number] [place] [address]- 4743 June, [facility] [place] [facility] [address] [id number] [place] [address]- 5227 June, [facility] [place] [facility] [address] [id number] [place] [address]- 4302 June, [facility] [place] [facility] [address] [id number] [place] [address]- 7234 June, [facility] [place] [facility] [address] [id number] [place] [address]- 4349 June, [facility] [place] [facility] [address] [id number] [place] [address]- 4607 June, [facility] [place] [facility] [address] [id number] [place] [address]- 3450 June, [facility] [place] [facility] [address] [id number] [place] [address]- 8322 May, [facility] [place] [facility] [address] [id number] [place] [address]- 3181 May, [facility] [place] [facility] [address] [id number] [place] [address]- 7906 May, [facility] [place] [facility] [address] [id number] [place] [address]- 5198 May, [facility] [place] [facility] [address] [id number] [place] [address]- 2035 May, [facility] [place] [facility] [address] [id number] [place] [address]- 7207 May, [facility] [place] [facility] [address] [id number] [place] [address]- 2722 Apr, [facility] [place] [facility] [address] [id number] [place] [address]- 4173 Apr, [facility] [place] [facility] [address] [id number] [place] [address]- 0173 28 Apr, 2013 [facility] [place] [facility] [address] [id number] [place] [address]- 2868 28 Apr, 2013 [facility] [place] [facility] [address] [id number] [place] [address]- 4556 14 Apr, 2013 [facility] [place] [facility] [address] [id number] [place] [address]- 9960 14 Apr, 2013 [facility] [place] [facility] [address] [id number] [place] [address]- 9006 Apr, [facility] [place] [facility] [address] [id number] [place] [address]- 6930 Apr, [facility] [place] [facility] [address] [id number] [place] [address]- 5927 Apr, [facility] [place] [facility] [address] [id number] [place] [address]- 6958 10 Apr, 2013 [facility] [place] [facility] [address] [id number] [place] [address]- 0180 04 Apr, 2013 [facility] [place] [facility] [address] [id number] [place] [address]- 8224 04 Apr, 2013 [facility] [place] [facility] [address] [id number] [place] [address]- 6680 Apr, [facility] [place] [facility] [address] [id number] [place] [address]- 5047 Apr, [facility] [place] [facility] [address] [id number] [place] [address]- 2408 Mar, [facility] [place] [facility] [address] [id number] [place] [address]- 2801 Mar, [facility] [place] [facility] [address] [id number] [place] [address]- 1376 05 Mar, 2013 [facility] [place] [facility] [address] [id number] [place] [address]- 6554 Feb, [facility] [address] [id number] [place] [address]- 6498 Feb, [facility] [place] [facility] [address] [id number] [place] [address]- 7384 Feb, [facility] [place] [facility] [address] [id number] [place] [address]- 0321 Feb, [facility] [place] [facility] [address] [id number] [place] [address]- 2586 Feb, [facility] [place] [facility] [address] [id number] [place] [address]- [address] Feb, [facility] [place] [facility] [address] [id number] [place] [address] Feb, [facility] [place] [facility] [address] [id number] [place] [address] Feb, [facility] [place] [facility] [address] [id number] [place] [address] Feb, [facility] [place] [facility] [address] [id number] [place] [address] Feb, [facility] [place] [facility] [address] [id number] [place] [address] Jan, [facility] [place] [facility] [address] [id number], [place] [address] Jan, [facility] [place] [facility] [address] [id number], [place] [address] Jan, [facility] [place] [facility] [address] [id number] [place] [address] Jan, [facility] [place] [facility] [address] [id number] [place] [address] Jan, [facility] [place] [facility] [address] [id number] [place] [address] Jan, [facility] [place] [facility] [address] [id number] [place] [address]69 23 Jan, 2012 [facility] [address] [id number] [place] [address] 23 Jan, 2012 [facility] [address] [id number] [place] [address] 96[address] Jan, 2012 [facility] [address] [id number] [place] [address] 19 Jan, 2012 [facility] [place] [facility] [address] [id number] [place] [address] 8586 17 Jan, 2012 [facility] [address] [id number] [place] [address]77 17 Jan, 2012 [facility] [address] [id number] [place] [address]- [address]270 16 Jan, 2012 [facility] [address] [id number] [place] [address] Jan, [facility] [address] [id number] [place] [address] 7939 Jan, [facility] [address] [id number] [place] [address] Jan, [facility] [address] [facility] [id number] [place] [address] Jan, [facility] [place] [facility] [address] [id number] [place] [address] 05 Jan, 2013 [facility] [place] [facility] [address] [id number] [place] [address] 05 Jan, 2013 [facility] [place] [facility] [address] [id number] [place] [address] 05 Jan, 2013 [facility] [place] [facility] [address] [id number] [place] [address]- [address] 05 Jan, 2013 [facility] [place] [facility] [address] [id number] [place] [address] 76[address] Dec, [facility] [place] [facility] [address] [id number] [place] [address] 2029 Dec, [facility] [place] [facility] [address] [id number] [place] [address] Dec, [facility] [place] [facility] [address] [id number] [place] [address] 9520 Dec, [facility] [place] [facility] [address] [id number] [place] [address] 278[address] Dec, [facility] [place] [facility] [address] [id number] [place] [address] 7096 Dec, [facility] [place] [facility] [address] [id number] [place] [address] Dec, [facility] [place] [facility] [address] [id number] [place] [address] 7825 Dec, [facility] [place] [facility] [address] [id number] [place] [address] 2621 Dec, [facility] [place] [facility] [address] [id number] [place] [address]- 1004 Dec, [facility] [place] [facility] [address] [id number] [place] [address] Nov, [facility] [place] [facility] [address] [id number] [place] [address]885 Nov, [facility] [place] [facility] [address] [id number], [place] [address] Nov, [facility] [place] [facility] [address] [id number] [place] [address] 6740 Nov, [facility] [place] [facility] [address] [id number] [place] [address]- 6378 Nov, [facility] [place] [facility] [address] [id number], [place] [address]- [address] Nov, [facility] [place] [facility] [address] [id number], [place] [address]- [address]46 Nov, [facility] [place] [facility] [address] [id number] [place] [address] 9560 Nov, [facility] [place] [facility] [address] [id number] [place] [address] 6006 Nov, [facility] [place] [facility] [address] [id number] [place] [address] 2546 Nov, [facility] [place] [facility] [address] [id number] [place] [address] 1281 Oct, [facility] [place] [facility] [address] [id number] [place] [address]- 3344 Oct, [facility] [place] [facility] [address] [id number] [place] [address]- 7526 Oct, [facility] [place] [facility] [address] [id number] [place] [address]- 2090 Oct, [facility] [place] [facility] [address] [id number] [place] [address] 9152 Oct, [facility] [place] [facility] [address] [id number] [place] [address] 3647 Sep, [facility] [place] [facility] [address] [id number] [place] [address] 228[address] Sep, [facility] [place] [facility] [address] [id number] [place] [address] 2044 Aug, [facility] [place] [facility] [address] [id number] [place] [address] 8812 Aug, [facility] [place] [facility] [address] [id number] [place] [address] 3484 Aug, [facility] [place] [facility] [address] [id number] [place] [address] 5210 Aug, [facility] [place] [facility] [address] [id number] [place] [address]- 2547 Aug, [facility] [place] [facility] [address] [id number] [place] [address]- 2105 Aug, [facility] [address] [id number] [place] [address] 0763 Aug, [facility] [address] [id number] [place] [address] 56[address] Jul, [facility] [address] [id number] [place] [address] 4938 Jul, [facility] [address] [id number] [place] [address]- 9927 June, [facility] [address] [id number] [place] [address] June, [facility] [facility] [address] [id number] [place] [address] June, [facility] [address] [id number] [place] [address] June, [facility] [address] [id number] [place] [address] June, [facility] [address] [id number] [place] [address] June, [facility] [address] [id number] [place] [address] June, [facility] [address] [id number] [place] [address] 7166 June, [facility] [address] [id number] [place] [address] 35[address] June, [facility] [address] [id number] [place] [address] 1066 June, [facility] [address] [id number] [place] [address] June, [facility] [address] [id number] [place] [address] May, [facility] [address] [id number] [place] [address] 97[address] May, [facility] [address] [id number] [place] [address] 9399 May, [facility] [address] [id number] [place] [address] 1535 May, [facility] [address] [id number] [place] [address] 1529 Apr, [facility] [address] [id number] [place] [address] 2043 Apr, [facility] [address] [id number] [place] [address] 6508 Apr, [facility] [address] [id number] [place] [address] 8310 Mar, [facility] [address] [id number], [place] [address] Mar, [facility] [address] [id number] [place] [address] 4078 Feb, [facility] [address] [id number] [place] [address] 6339 Feb, [facility] [address] [id number] [place] [address]- 4586 Feb, [facility] [place] [facility] [address] [id number], [place] [address] Feb, [facility] [place] [facility] [address] [id number] [place] [address]- 4098 Feb, [facility] [place] [facility] [address] [id number] [place] [address]- 1597 14 Feb, 2012 [facility] [place] [facility] [address] [id number] [place] [address] 4[address] Feb, [facility] [place] [facility] [address] [id number] [place] [address] 3524 31 Jan, 2012 [facility] [place] [facility] [address] [id number] [place] [address] 6816 31 Jan, 2012 [facility] [place] [facility] [address] [id number] [place] [address]- 5256 28 Jan, 2012 [facility] [place] [facility] [address] [id number] [place] [address]- 5246 17 Jan, 2012 [facility] [place] [facility] [address] [id number] [place] [address]- 9426 17 Jan, 2012 [facility] [place] [facility] [address] [id number] [place] [address]- 2206 11 Jan, 2012 [facility] [place] [facility] [address] [id number] [place] [address]- 9287 Jan, [facility] [place] [facility] [address] [id number] [place] [address]- 6822 10 Jan, 2012 [facility] [place] [facility] [address] [id number] [place] [address]- 5405 10 Jan, 2012 [facility] [place] [facility] [address] [id number] [place] [address] 8377 03 Jan, 2012 [facility] [place] [facility] [address] [facility] [id number] [place] [address] 4830 Jan, [facility] [place] [facility] [address] [id number] [place] [address]- 1151 Dec, [facility] [place] [facility] [address] [id number] [place] [address]- 8529 Dec, [facility] [place] [facility] [address] [id number] [place] [address] 2759 Dec, [facility] [place] [facility] [address] [facility] [id number] [place] [address]- 1189 05 Dec, 2011 [facility] [place] [facility] [address] [facility] [id number] [place] [address]- 9726 Nov, [facility] [place] [facility] [address] [id number] [place] [address]- 7476 22 Nov, 2011 [facility] [place] [facility] [address] [id number] [place] [address]- 2283 08 Nov, 2011 [facility] [place] [facility] [address] [id number] [place] [address]- 2636 27 Oct, 2011 [facility] [place] [facility] [address] [id number] [place] [address]- 7716 24 Oct, 2011 [facility] [place] [facility] [address] [id number] [place] [address] 2544 21 Oct, 2011 [facility] [place] [facility] [address] [id number] [place] [address]- 6196 10 Oct, 2011 [facility] [place] [facility] [address] [id number] [place] [address]- 4351 07 Oct, 2011 [facility] [place] [facility] [address] [id number] [place] [address]- 3331 Oct, [facility] [place] [facility] [address] [id number] [place] [address]- 1739 Oct, [facility] [place] [facility] [address] [id number] [place] [address]- 8650 29 Sep, 2011 [facility] [place] [facility] [address] [id number] [place] [address]- 6741 Sep, [facility] [place] [facility] [address] [id number] [place] [address]- 9320 Sep, [facility] [place] [facility] [address] [id number] [place] [address]- 5084 Sep, [facility] [place] [facility] [address] [id number] [place] [address] 3110 Sep, [facility] [place] [facility] [address] [id number] [place] [address]- 5723 Aug, [facility] [place] [facility] [address] [id number] [place] [address]- 7553 26 Aug, 2011 [facility] [place] [facility] [address] [id number] [place] [address]- 0787 17 Aug, 2011 [facility] [place] [facility] [address] [id number] [place] [address]- 5826 16 Aug, 2011 [facility] [place] [facility] [address] [id number] [place] [address]- 8116 Aug, [facility] [place] [facility] [address] [id number] [place] [address]- 0184 Aug, [facility] [place] [facility] [address] [id number] [place] [address]- 6305 Aug, [facility] [place] [facility] [address] [id number] [place] [address]- 6934 Jul, [facility] [place] [facility] [address] [id number] [place] [address]- 0609 Jul, [facility] [place] [facility] [address] [id number] [place] [address]- 8975 Jul, [facility] [place] [facility] [address] [id number] [place] [address]- 0971 Jul, [facility] [place] [facility] [address] [id number] [place] [address]- 1610 Jul, [facility] [place] [facility] [address] [id number] [place] [address]- 7211 Jul, [facility] [place] [facility] [address] [id number] [place] [address]- 6367 Jul, [facility] [place] [facility] [address] [id number] [place] [address]- 9958 Jul, [facility] [place] [facility] [address] [id number] [place] [address]- 9139 05 Jul, 2011 [facility] [place] [facility] [address] [id number] [place] [address]- 8130 June, [facility] [place] [facility] [address] [id number] [place] [address]- 1697 June, [facility] [address] [id number] [place] [address]- 1267 June, [facility] [address] [id number] [place] [address]- 8966 June, [facility] [address] [id number] [place] [address]- 3753 June, [facility] [address] [id number] [place] [address]- 2660 June, [facility] [address] [id number] [place] [address]- 1460 June, [facility] [address] [id number] [place] [address]- 1449 June, [facility] [address] [id number] [place] [address]- 4666 May, [facility] [address] [id number] [place] [address]- 4042 May, [facility] [address] [id number] [place] [address]- 8538 May, [facility] [address] [id number] [place] [address]- 1407 May, [facility] [address] [id number] [place] [address]- 0721 16 May, 2011 [facility] [address] [id number] [place] [address]- 2604 16 May, 2011 [facility] [address] [id number] [place] [address] May, [facility] [address] [id number] [place] [address] [address]88 Apr, [facility] [address] [id number] [place] [address]- 4586 Apr, [facility] [address] [id number] [place] [address]- 2556 Apr, [facility] [place] [facility] [address] [id number] [place] [address]- 0406 19 Apr, 2011 [facility] [place] [facility] [address] [id number] [place] [address]- 0743 Apr, [facility] [place] [facility] [address] [id number] [place] [address]- 3026 Apr, [facility] [place] [facility] [address] [id number] [place] [address]- 0441 Apr, [facility] [place] [facility] [address] [id number] [place] [address]- 7569 Mar, [facility] [place] [facility] [address] [facility] [id number] [place] [address]- 6420 20 Mar, 2011 [facility] [place] [facility] [address] [id number] [place] [address]- 0959 14 Mar, 2011 [facility] [place] [facility] [address] [id number] [place] [address]- 0419 13 Mar, 2011 [facility] [place] [facility] [address] [facility] [id number] [place] [address]- 5926 09 Mar, 2011 [facility] [place] [facility] [address] [id number] [place] [address]- 4904 Mar, [facility] [place] [facility] [address] [id number], [place] [address]- 7824 Mar, [facility] [place] [facility] [address] [id number] [place] [address]- 1123 Feb, [facility] [place] [facility] [address] [id number] [place] [address]- 4677 Feb, [facility] [place] [facility] [address] [id number] [place] [address]- 1986 Feb, [facility] [place] [facility] [address] [id number] [place] [address]- 1851 Feb, [facility] [address] [id number] [place] [address]- 1736 Feb, [facility] [address] [id number] [place] [address]- 4456 Feb, [facility] [address] [id number] [place] [address]- 0951 Feb, [facility] [address] [id number] [place] [address] 2541 Feb, [facility] [address] [id number] [place] [address]- 3692 Feb, [facility] [address] [id number] [place] [address]- 8450 Feb, [facility] [address] [id number] [place] [address]- 2964 Jan, [facility] [address] [id number] [place] [address]- 5446 Jan, [facility] [address] [id number] [place] [address]- 7915 Jan, [facility] [address] [id number] [place] [address]- 0772 Jan, [facility] [address] [id number] [place] [address] 2546 Jan, [facility] [address] [id number] [place] [address]- 2540 Jan, [facility] [place] [facility] [address] [id number] [place] [address] 2546 15 Jan, 2011 [facility] [place] [facility] [address] [id number] [place] [address]- 2546 15 Jan, 2011 [facility] [address] [id number] [place] [address] 2549 08 Jan, 2011 [facility] [place] [facility] [address] [id number] [place] [address]- 9212 Jan, [facility] [place] [facility] [address] [id number] [place] 7631 Jan, [facility] [place] [facility] [address] [id number] [place] [address] Dec, [facility] [place] [facility] [address] [id number] [place] [address]- 6940 Dec, [facility] [place] [facility] [address] [id number] [place] [address]- 2482 Dec, [facility] [place] [facility] [address] [id number] [place] [address]- 6016 Dec, [facility] [place] [facility] [address] [id number] [place] [address]- 7133 Dec, [facility] [place] [facility] [address] [id number] [place] [address]- 6640 Dec, [facility] [place] [facility] [address] [id number] [place] [address]- 7259 Dec, [facility] [place] [facility] [address] [id number] [place] [address]- 2404 Dec, [facility] [place] [facility] [address] [id number] [place] [address]- 6750 Dec, [facility] [place] [facility] [address] [id number], [place] [address]- 3837 Nov, [facility] [place] [facility] [address] [id number] [place] [address]- 1700 Nov, [facility] [place] [facility] [address] [id number] [place] [address]- 1643 Nov, [facility] [place] [facility] [address] [id number] [place] [address]- 4678 Nov, [facility] [place] [facility] [address] [id number], [place] [address]- 8934 Nov, [facility] [address] [facility] [id number], [place] [address]- 7686 Nov, [facility] [address] [facility] [id number], [place] [address]- 0466 Aug, [facility] [address] [facility] [id number], [place] [address]- 5036 14 Feb, 2010 [facility] [address] [id number], [place] [address]- 1190 14 Jan, 2010 [facility] [address] [facility] [id number] [place] [address]- 6484 Jan, [facility] [address] [facility] [id number], [place] [address]- 9488 Jan, [facility] [address] [facility] [id number], [place] [address]- 6464 Jan, [facility] [address] [facility] [id number], [place] [address]- 3343 Jan, [facility] [address] [facility] [id number], [place] [address]- 2690 Dec, [facility] [address] [facility] [id number], [place] [address]- 1878 Dec, [facility] [address] [facility] [id number], [place] [address]- 7761 Dec, [facility] [address] [facility] [id number], [place] [address]- 0509 Dec, [facility] [address] [facility] [id number], [place] [address]- 2339 Nov, [facility] [address] [facility] [id number], [place] [address]- 6986 Nov, [facility] [address] [facility] [id number], [place] [address]- 5446 Nov, IMMUNIZATIONS No Known Immunizations SOCIAL HISTORY Never Assessed REASON FOR VISIT Controlld Refill Request PLAN OF CARE VITAL SIGNS MEDICATIONS Unknown [...]
[2018-01-13] MEDS ORDERED: PREGABALIN 100 MG (LYRICA) CAPSULE ONE (21:43)
--- OUTSIDE RECORDS SUMMARY | 2018-01-13 21:44 | XMS REPORT ---
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 [address]-54 300 MG Orally Three times a day Sep 12, 2014 1 capsule Flexeril NDC 0 10 mg 3 times a day Mar 22, 2014 take 1 tablet Amlodipine Besylate ND 40990577704 5 MG TAKE ONE TABLET BY MOUTH DAILY Procedures Procedure Coding System Code Date Office Visit, Est Pt., Level 2 CPT-4 07717 Nov 15, 2014 Vital Signs Date/Time: Nov 15, 2014 Temperature 98.0 F Weight 160 lbs Height 68 in BMI 24.33 Index Blood Pressure Diastolic 70 mmHg Blood Pressure Systolic 100 mmHg Cardiac Monitoring Heart Rate 70 bpm Results No Known Results Summary Purpose eClinicalWorks Submission
--- OUTSIDE RECORDS SUMMARY | 2018-01-13 21:44 | XMS REPORT ---
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 Name Role Phone WYATT SOTO Unavailable PROBLEMS Type Condition ICD9-CM Code HJW29-DX Code Onset Dates Condition Status SNOMED Code Problem Left hip pain M25.552 Active 47067742 Problem Other chronic pain G89.29 Active 36422450 Problem Chronic hepatitis C without hepatic coma B18.2 Active 753893451 Problem Other obesity due to excess calories E66.09 Active 531538839 Problem Body mass index (BMI) of 34.0-34.9 in adult Z68.34 Active 270317726 Problem Other psychoactive substance dependence, 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 Active 1960216 Problem 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, 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 343748941 Problem Gastroesophageal reflux disease, esophagitis presence not specified K21.9 Active 521641526 Problem Venous insufficiency (chronic) (peripheral) I87.2 Active 941398240 Problem Unspecified episodic mood disorder F39 Active 90850469 Problem Hypertension I10 Active 52631228 Problem Combined drug dependence excluding opioids, 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 [id number] [address] Jul, [facility] [address] [address] Jul, [facility] [address] [address] Jul, Arthritis M19.90 [facility] [address] [place] [address] 70977- 4592 Jul, Left hip pain M25.552 ; Hypertension I10 ; Other obesity due to excess calories E66.09 and Body mass index (BMI) of 34.0-34.9 in adult Z68.34 [facility] [address] [address] Jul, Unspecified episodic mood disorder F39 [facility] [id number] [place] [address] 76625- 9032 June, Gastroesophageal reflux disease, esophagitis presence not specified K21.9 [facility] [id number] [place] [address] 80958- 1304 June, [facility] [id number] [place] [address] 96914- 6889 June, [facility] [id number] [place] [address] 10985- 4651 June, Arthritis M19.90 [facility] [address] [place] [address] 83801- 4373 June, [facility] [id number] [place] [address] 33818- 1137 June, [facility] [address] [address] 6106 June, Unspecified episodic mood disorder F39 [facility] [id number] [place] [address] 50136- 1839 May, Unspecified episodic mood disorder F39 [facility] [address] [address] May, [facility] [id number] [address] 9730 May, Arthritis M19.90 [facility] [address] [address] May, Dysuria R30.0 ; Abscess L02.91 and Acute cystitis without hematuria N30.00 [facility] [address] [place] [address] 01940- 3218 May, Other disorder of impulse control F63.89 ; Unspecified episodic mood disorder F39 ; Combined drug dependence excluding opioids, 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 ; Anxiety F41.9 and Other psychoactive substance dependence, 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 [facility] [id number] [place] [address] 10783- 5661 May, [facility] [id number] [place] [address] 82621- 5571 May, Other disorder of impulse control F63.89 ; Unspecified episodic mood disorder F39 ; Combined drug dependence excluding opioids, 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 ; Other psychoactive substance dependence, 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 and Anxiety F41.9 [facility] [id number] [place] [address] 33897- 1956 May, Other chronic pain G89.29 ; Left hip pain M25.552 ; Hypertension I10 ; 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, 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 and Unspecified episodic mood disorder F39 [facility] [id number] [place] [address] 01171- 1945 Apr, [facility] [id number] [place] [address] 86884 -3081 Apr, Neck pain M54.2 ; Left hip pain M25.552 and Fall, initial encounter W19.XXXA [facility] [id number] [place] [address] 73880- 7062 Apr, Unspecified episodic mood disorder F39 ; Combined drug dependence excluding opioids, 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 ; Anxiety F41.9 ; Other psychoactive substance dependence, 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 and Other disorder of impulse control F63.89 [facility] [id number] [place] [address] 41738- 4336 Apr, [facility] [id number] [place] [address] 14196- 6029 Apr, Arthritis M19.90 and Unspecified episodic mood disorder F39 [facility] [address] [place] [address] 52719- 1056 Apr, Unspecified episodic mood disorder F39 [facility] [address] [address] 3866 Apr, [facility] [id number] [place] [address] 62377- 7416 Apr, [facility] [address] [place] [address] 66921- 7876 Apr, Unspecified episodic mood disorder F39 ; Combined drug dependence excluding opioids, 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 ; Anxiety F41.9 ; Other psychoactive substance dependence, 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 and Other disorder of impulse control F63.89 [facility] [id number] [place] [address] 49415- 5322 Mar, Unspecified episodic mood disorder F39 [facility] [address] [place] [address] 53755- 4978 Mar, Gastroesophageal reflux disease, esophagitis presence not specified K21.9 [facility] [address] [place] [address] 70746- 1497 Mar, Arthritis M19.90 and Unspecified episodic mood disorder F39 [facility] [address] [place] [address] 15884- 4136 Feb, [facility] [address] [place] [address] 25507 2540 Feb, [facility] [id number] [place] [address] 86514- 1976 Feb, [facility] [address] [place] [address] 96614- 2956 Feb, Arthritis M19.90 [facility] [address] [place] [address] 95134- 9961 Feb, Non-pressure chronic ulcer of right calf, 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 ; Unspecified episodic mood disorder F39 and Left hip pain M25.552 [facility] [id number] [place] [address] 20399- 1287 Feb, [facility] [id number] [place] [address] 98214- 6091 Feb, [facility] [id number] [place] [address] 76805- 9712 Jan, Arthritis M19.90 [place] [address] [address]- 4911 Jan, Left hip pain M25.552 and Non-pressure chronic ulcer of right calf, 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 [facility] [id number] [place] [address] 85601- 8605 Jan, Chronic hepatitis C without hepatic coma B18.2 [facility] [id number] [place] [address] 76548- 0462 Jan, Encounter for immunization Z23 ; Venous insufficiency ( chronic) (peripheral) I87.2 ; Non-pressure chronic ulcer of unspecified calf limited to breakdown of skin L97.201 and Gastroesophageal reflux disease, esophagitis presence not specified K21.9 [facility] [id number] [place] [address] 95488- 5143 Jan, [facility] [id number] [place] [address] 13462- 5764 Jan, Chronic hepatitis C without hepatic coma B18.2 and Encounter for immunization Z23 [facility] [id number] [place] [address] 87348- 0789 Jan, Arthritis M19.90 [facility] [id number] [place] [address] 84717- 6393 Jan, [facility] [id number] [place] [address] 00014- 3728 Dec, [facility] [address] [place] [address] 77141- 9974 Dec, Unspecified episodic mood disorder F39 [facility] [id number] [place] [address] 37247- 2315 Dec, Arthritis M19.90 [facility] [id number] [place] [address] 62704- 3536 Dec, Arthritis M19.90 [facility] [id number] [place] [address] 35740- 4750 Nov, [facility] [id number] [place] [address] 93060- 3335 Nov, [facility] [id number] [place] [address] 95616- 7617 Nov, Other psychoactive substance dependence, 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 ; 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, 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 and Chronic hepatitis C without hepatic coma B18.2 [facility] [address] [place] [address] 31800- 5441 Nov, Arthritis M19.90 [facility] [address] [place] [address] 03695 -0419 Oct, Partial thickness burn of abdomen, initial encounter T21.22XA [facility] [id number] [place] [address] 21183- 2990 Oct, [facility] [id number] [place] [address] 37360- 8210 Sep, Arthritis M19.90 [facility] [id number] [place] [address] 14767- 8207 Sep, [facility] [id number] [place] [address] 70739- 5662 Sep, [facility] [id number] [place] [address] 42196- 4195 Sep, Unspecified episodic mood disorder F39 ; Chronic hepatitis C without hepatic coma B18.2 and Left hip pain M25.552 [facility] [id number] [place] [address] 03963- 1748 Sep, Arthritis M19.90 and Left hip pain M25.552 [facility] [id number] [place] [address] 60564- 3291 Aug, [facility] [id number] [place] [address] 69404- 6781 Aug, [facility] [id number] [place] [address] 53548- 4471 Aug, Chronic hepatitis C without hepatic coma B18.2 [facility] [id number] [place] [address] 95073- 3228 Aug, [facility] [id number] [place] [address] 78841- 4334 Aug, Chronic hepatitis C without hepatic coma B18.2 [facility] [id number] [place] [address] 24588- 9478 Aug, 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, 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 [facility] [address] [place] [address] 91157- 5289 Aug, [facility] [id number] [place] [address] 49122- 8418 Aug, Chronic hepatitis C without hepatic coma B18.2 and Hypertension I10 [facility] [address] [address]- 6613 Jul, [facility] [id number] [place] [address] 64677- 0498 June, [facility] [id number] [address]- 5260 Apr, Fibromyalgia M79.7 ; Left hip pain M25.552 and Decubitus ulcer of sacral region, stage 1 L89.151 [facility] [address] [place] [address] 09881- 2351 Apr, [facility] [id number] [place] [address] 56774- 2990 Apr, [facility] [id number] [place] [address] 17886- 1221 Feb, [facility] [id number] [place] [address] 92677- 4238 Dec, Anxiety F41.9 ; Combined drug dependence excluding opioids, 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 and Unspecified episodic mood disorder F39 [facility] [id number] [place] [address] 68675- 9944 Dec, [facility] [id number] [place] [address] 16749- 2392 Nov, [facility] [id number] [place] [address] 33789- 3179 Nov, [facility] [id number] [place] [address] 34666- 7324 Nov, Other disorder of impulse control F63.89 and Anxiety F41.9 [facility] [id number] [place] [address] 14000- 4561 Oct, 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 and Anxiety F41.9 [facility] [id number] [place] [address] 32212- 3836 Sep, Other disorder of impulse control 312.39 ; Combined drug dependence excluding opioids, 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 ; Anxiety F41.9 and Unspecified episodic mood disorder F39 [facility] [address] [address]- 6826 Sep, Other chronic pain G89.29 [facility] [address] [place] [address] 44869- 7211 Sep, [facility] [id number] [place] [address] 55334- 7626 Sep, [facility] [id number] [place] [address] 35768- 9499 Aug, [facility] [id number] [place] [address] 83243- 7237 Aug, [facility] [id number] [place] [address] 84220- 5159 Aug, [facility] [address] [place] [address] 51406- 7785 Jul, [facility] [id number] [place] [address] 64122- 8756 Jul, [facility] [address] [place] [address] 88327- 9250 Jul, [facility] [id number] [place] [address] 86155- 9746 Jul, Arthritis M19.90 ; Chronic hepatitis C without hepatic coma B18.2 and Left hip pain M25.552 [facility] [address] [place] [address] 02680- 2927 Jul, Left knee pain M25.562 [facility] [address] [address]- 1462 Jul, Combined drug dependence excluding opioids, 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 ; Anxiety F41.9 ; Other disorder of impulse control 312.39 and Unspecified episodic mood disorder F39 [facility] [address] [address]- 6537 13 Jul, 2015 Left knee pain M25.562 [facility] [id number] [place] [address] 62896- 7369 08 Jul, 2015 Left knee pain M25.562 and Left hip pain M25.552 [facility] [id number] [place] [address] 73340- 1841 Jul, [facility] [address] [place] [address] 90390- 5672 June, [facility] [id number] [place] [address] 76147- 3013 June, Combinations of drug dependence excluding opioid type drug, unspecified abuse 304.80 ; Other disorder of impulse control 312.39 ; Unspecified episodic mood disorder F39 and Anxiety F41.9 [facility] [id number] [place] [address] 10983- 3801 June, Other fatigue R53.83 ; Headache R51 and Left knee pain M25.562 [facility] [id number] [place] [address] 67975- 5656 June, Unspecified episodic mood disorder F39 ; Combinations of drug dependence excluding opioid type drug, unspecified abuse 304.80 ; Other disorder of impulse control 312.39 and Anxiety F41.9 [facility] [address] [place] [address] 80519- 6893 June, Anxiety F41.9 [facility] [address] [place] [address] 08541- 6567 June, Pain in left knee M25.562 [facility] [id number] [place] [address] 64953- 3180 June, Anxiety F41.9 and Combinations of drug dependence excluding opioid type drug, unspecified abuse 304.80 [facility] [id number] [place] [address] 71734- 3588 June, Unspecified episodic mood disorder 296.90 ; Combinations of drug dependence excluding opioid type drug, unspecified abuse 304.80 and Other disorder of impulse control 312.39 [facility] [address] [place] [address] 94333- 2820 June, Anxiety F41.9 and Unspecified episodic mood disorder 296.90 [facility] [id number] [place] [address] 95232- 6200 May, Arthritis M19.90 [facility] [id number] [place] [address] 26668- 7463 May, Arthritis M19.90 [facility] [id number] [place] [address] 32587- 8164 May, Anxiety F41.9 ; Combinations of drug dependence excluding opioid type drug, unspecified abuse 304.80 and Other disorder of impulse control 312.39 [facility] [address] [place] [address] 23657- 1228 May, Left knee pain M25.562 [facility] [id number] [place] [address] 34538- 5205 May, Arthritis M19.90 [facility] [address] [place] [address] 63249- 8090 May, [facility] [address] [place] [address] 70430- 0263 May, Anxiety F41.9 ; Unspecified episodic mood disorder 296.90 ; Combinations of drug dependence excluding opioid type drug, unspecified abuse 304.80 and Other disorder of impulse control 312.39 [facility] [address] [place] [address] 57799- 7808 May, Left knee pain M25.562 [facility] [address] [place] [address] 66495- 6828 May, Left knee pain M25.562 ; Combinations of drug dependence excluding opioid type drug, unspecified abuse 304.80 ; Other disorder of impulse control 312.39 ; Fibromyalgia M79.7 ; Hypertension I10 ; Unspecified episodic mood disorder 296.90 and Left hip pain M25.552 [facility] [id number] [place] [address] 20660- 0706 May, Unspecified episodic mood disorder 296.90 ; Other disorder of impulse control 312.39 ; Combinations of drug dependence excluding opioid type drug, unspecified abuse 304.80 and Anxiety F41.9 [place] [id number] [place] [address] 31541- 2945 May, Left knee pain M25.562 ; Combinations of drug dependence excluding opioid type drug, unspecified abuse 304.80 ; Other disorder of impulse control 312.39 ; Fibromyalgia M79.7 ; Hypertension I10 ; Unspecified episodic mood disorder 296.90 and Left hip pain M25.552 [place] [id number] [place] [address] 60965- 3498 May, Anxiety F41.9 ; Unspecified episodic mood disorder 296.90 ; Other disorder of impulse control 312.39 and Combinations of drug dependence excluding opioid type drug, unspecified abuse 304.80 [place] [id number] [place] [address] 12155- 8201 Apr, 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 and 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, implants and grafts, initial encounter T84.82XA [place] [id number] [place] [address] 40291- 1186 Apr, Anxiety F41.9 ; Unspecified episodic mood disorder 296.90 ; Combinations of drug dependence excluding opioid type drug, unspecified abuse 304.80 and Other disorder of impulse control 312.39 [place] [id number] [place] [address] 02758- 8453 Apr, Arthritis M19.90 [place] [id number] [place] [address] 07979- 2576 Apr, Anxiety F41.9 ; Unspecified episodic mood disorder 296.90 ; Combinations of drug dependence excluding opioid type drug, unspecified abuse 304.80 and Other disorder of impulse control 312.39 [facility] [address] [place] [address] 50206- 4071 17 Apr, 2015 Arthritis M19.90 [facility] [address] [address]- 9902 15 Apr, 2015 [facility] [id number] [place] [address] 14258- 0130 15 Apr, 2015 [facility] [id number] [place] [address] 36756- 9154 14 Apr, 2015 Unspecified episodic mood disorder 296.90 ; Combinations of drug dependence excluding opioid type drug, unspecified abuse 304.80 ; Other disorder of impulse control 312.39 and Anxiety F41.9 [facility] [address] [place] [address] 28614 -9583 11 Apr, 2015 Left knee pain M25.562 [facility] [address] [place] [address] 08101- 9677 Apr, [facility] [address] [place] [address] 18511- 0340 29 Mar, 2015 Unspecified episodic mood disorder 296.90 ; Anxiety F41.9 ; Other disorder of impulse control 312.39 and Combinations of drug dependence excluding opioid type drug, unspecified abuse 304.80 [facility] [address] [place] [address] 93508- 4772 Mar, Hyperpigmentation L81.9 [facility] [address] [place] [address] 70903- 3606 Mar, Arthritis M19.90 and Anxiety F41.9 [facility] [address] [id number] [place] [address] 63209- 1237 Mar, Unspecified episodic mood disorder F39 ; Combined drug dependence excluding opioids, 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 ; Other disorder of impulse control F63.89 and Anxiety F41.9 [facility] [id number] [place] [address] 26185- 6946 12 Mar, 2015 Well woman exam Z01.419 ; Other fatigue R53.83 ; Hot flashes N95.1 ; Depression, unspecified depression type F32.9 and Body mass index (BMI) of 23.0-23.9 in adult Z68.23 [place] [id number] [place] [address] 03895- 2723 11 Mar, 2015 Unspecified episodic mood disorder 296.90 ; Other disorder of impulse control 312.39 and Anxiety F41.[address] 71647- 1864 11 Mar, 2015 Well woman exam Z01.419 [...] of breast Z12.39 and Limited mobility Z74.09 [place] [id number] [place] [address] 04161- 2686 10 Mar, 2015 [place] [address] [place] [id number] [place] [address] 60062- 2957 10 Mar, 2015 [place] [id number] [place] [address] 07345- 4965 Mar, [place] [address] [place] [id number] [place] [address] 16089- 9204 03 Mar, 2015 Other specified complication of internal orthopedic prosthetic devices, implants and grafts, initial encounter T84.89XA ; Fibromyalgia M79.7 ; Hypertension I10 ; Anemia D64.9 ; Insomnia G47.00 ; Anxiety F41.9 ; Arthritis M19.90 and Migraine G43.909 [facility] [address] 70907- 2570 Mar, [facility] [address] 51801- 8025 Feb, [facility] [address] 99680- 0608 Feb, Arthritis M19.90 and Anxiety F41.9 [facility] [address] 19876- 0106 Feb, [facility] [address] 84251- 5398 Feb, [facility] [address] 30625- 1228 Feb, [facility] [address] 16586- 1174 Feb, [facility] [address] 73630- 0033 Feb, Anxiety F41.9 [facility] [address] 25260- 3990 Feb, [facility] [address] 28272- 6389 Feb, [facility] [address] 94094- 4965 Feb, 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 and Fibromyalgia M79.7 [facility] [address] 16893- 8835 Feb, [facility] [address] 37150- 5247 Jan, [facility] [address] 43899- 9638 Jan, [facility] [address] [address] 1898 Jan, [facility] [address] 6691 Jan, [facility] [address] [address] 3691 Jan, [facility] [id number] [place] [address] 921062- 7620 Jan, [facility] [address] [address]- 8893 Jan, [facility] [id number] [place] [address] 375405- 0751 Jan, [facility] [id number] [place] [address] 23985- 3055 Dec, [facility] [address] [address]- 0501 Dec, Left knee pain M25.562 [facility] [id number] [place] [address] 26165- 6163 Dec, Left knee pain M25.562 [facility] [address] [address]- 1026 Dec, Fibromyalgia M79.7 ; Hypertension I10 and Arthritis M19.90 [facility] [address] [address]- 4543 Dec, [facility] [address] [address]- 1002 Dec, [facility] [address] [address]- 0532 Dec, [facility] [address] [address]- 3134 Dec, [facility] [address] [address]- 1948 Nov, 2014 [facility] [address] [id number] [address]- 3575 Nov, 2014 [facility] [place] [facility] [address] [facility] [id number] [address]- 4433 Nov, 2014 [facility] [address] [facility] [id number] [address]- 7797 Nov, Hypertension I10 [facility] [place] [facility] [address] [id number] [place] [address]- 4934 23 Oct, 2014 [facility] [address] [facility] [id number] [place] [address], [place] [address]- 4935 17 Oct, 2014 [facility] [address] [facility] [id number] [address]- 8847 04 Oct, 2014 [facility] [place] [facility] [address] [place] [id number] [place] [address] 17169- 0159 Oct, 2014 [facility] [address] [facility] [id number] [address]- 0932 Oct, [facility] [address] [address]- 1361 Sep, [facility] [address] [id number] [address]- 6395 Sep, [facility] [place] [facility] [address] [address]- 1355 Sep, Hip pain associated with recalled total hip arthroplasty hardware 996.77 [facility] [place] [facility] [address] [facility] [id number] [place] [address]- 1316 Sep, [facility] [place] [facility] [address] [facility] [id number] [place] [address]- 2380 Sep, [facility] [place] [facility] [address] [facility] [id number] [address]- 2987 Sep, [facility] [place] [facility] [address] [facility] [id number] [place] [address]- 2728 Aug, [facility] [place] [facility] [address] [id number] [place] [address]- 3193 Jul, [facility] [place] [facility] [address] [id number] [place] [address]- 0677 June, [facility] [place] [facility] [address] [id number] [place] [address]- 7736 June, [facility] [place] [facility] [address] [id number] [place] [address]- 8834 June, [facility] [place] [facility] [address] [id number] [place] [address]- 8582 June, [facility] [place] [facility] [address] [id number] [place] [address]- 4090 June, [facility] [place] [facility] [address] [id number] [place] [address]- 7352 June, [facility] [place] [facility] [address] [id number] [place] [address]- 0733 May, [facility] [place] [facility] [address] [id number] [place] [address]- 6626 May, [facility] [place] [facility] [address] [id number] [place] [address]- 9512 May, [facility] [place] [facility] [address] [id number] [place] [address]- 8766 Apr, [facility] [place] [facility] [address] [id number] [place] [address]- 4239 Apr, [facility] [place] [facility] [address] [id number] [place] [address]- 4970 Apr, [facility] [place] [facility] [address] [id number] [place] [address]- 8351 Apr, [facility] [place] [facility] [address] [id number] [place] [address]- 8330 Apr, [facility] [place] [facility] [address] [id number] [place] [address]- 1245 13 Apr, 2014 [facility] [place] [facility] [address] [id number] [place] [address]- 5819 Apr, [facility] [place] [facility] [address] [id number] [place] [address]- 6152 Apr, [facility] [place] [facility] [address] [id number] [place] [address]- 0771 Apr, [facility] [place] [facility] [address] [id number] [place] [address]- 7580 Apr, [facility] [place] [facility] [address] [id number] [place] [address]- 9759 Apr, [facility] [place] [facility] [address] [id number] [place] [address]- 2650 Mar, [facility] [place] [facility] [address] [id number] [place] [address]- 0820 Mar, [facility] [place] [facility] [address] [id number] [place] [address]- 7781 Mar, [facility] [place] [facility] [address] [id number] [place] [address]- 9841 Mar, [facility] [place] [facility] [address] [id number] [place] [address]- 8551 Mar, [facility] [place] [facility] [address] [id number] [place] [address]- 5162 Mar, [facility] [place] [facility] [address] [id number] [place] [address]- 3817 Feb, [facility] [place] [facility] [address] [id number] [place] [address]- 8840 Feb, [facility] [place] [facility] [address] [id number] [place] 7555 Feb, [facility] [place] [facility] [address] [id number] [place] [address]- 7533 Feb, [facility] [place] [facility] [address] [id number] [place] [address]- 4262 Jan, [facility] [place] [facility] [address] [id number] [place] [address]- 2858 Jan, [facility] [place] [facility] [address] [id number] [place] [address]- 7477 Jan, [facility] [place] [facility] [address] [id number] [place] [address]- 4343 Jan, [facility] [place] [facility] [address] [id number] [place] [address]- 9670 Dec, [facility] [place] [facility] [address] [id number] [place] [address]- 1585 Dec, [facility] [place] [facility] [address] [id number] [place] [address]- 9324 Dec, [facility] [place] [facility] [address] [id number] [place] [address]- 4884 Dec, [facility] [place] [facility] [address] [id number] [place] [address]- 6097 Dec, [facility] [place] [facility] [address] [id number] [place] [address]- 1193 Dec, [facility] [place] [facility] [address] [id number] [place] [address]- 1932 Dec, [facility] [place] [facility] [address] [id number] [address]- 1492 Dec, [facility] [place] [facility] [address] [id number] [place] [address]- 5635 Dec, [facility] [place] [facility] [address] [id number] [place] [address]- 2254 Dec, [facility] [place] [facility] [address] [id number] [place] [address]- 7123 Dec, [facility] [place] [facility] [address] [id number] [place] [address]- 9412 31 Nov, 2013 [facility] [place] [facility] [address] [id number] [place] [address]- 5536 28 Nov, 2013 [facility] [place] [facility] [address] [id number] [place] [address]- 1282 28 Nov, 2013 [facility] [place] [facility] [address] [id number] [place] [address]- 2715 17 Nov, 2013 [facility] [place] [facility] [address] [id number] [place] [address]- 3235 17 Nov, 2013 [facility] [place] [facility] [address] [id number] [place] [address]- 0868 15 Nov, 2013 [facility] [place] [facility] [address] [id number] [place] [address]- 7665 15 Nov, 2013 [facility] [place] [facility] [address] [id number] [place] [address]- 4924 15 Nov, 2013 [facility] [place] [facility] [address] [id number] [place] [address]- 3881 15 Nov, 2013 [facility] [place] [facility] [address] [id number] [place] [address]- 9125 14 Nov, 2013 [facility] [place] [facility] [address] [id number] [place] [address]- 6528 14 Nov, 2013 [facility] [place] [facility] [address] [id number] [place] [address]- 9136 14 Nov, 2013 [facility] [place] [facility] [address] [id number] [place] [address]- 9606 14 Nov, 2013 [facility] [place] [facility] [address] [id number] [place] [address]- 4060 13 Nov, 2013 [facility] [place] [facility] [address] [id number] [place] [address]- 8487 13 Nov, 2013 [facility] [place] [facility] [address] [id number] [place] [address]- 7410 Nov, [facility] [place] [facility] [address] [id number] [place] [address]- 1545 11 Nov, 2013 [facility] [place] [facility] [address] [id number] [place] [address]- 0404 Nov, 2013 [facility] [place] [facility] [address] [id number] [place] [address]- 4138 Nov, 2013 [facility] [place] [facility] [address] [id number] [place] [address]- 0962 Nov, 2013 [facility] [place] [facility] [address] [id number] [place] [address]- 8432 07 Nov, 2013 [facility] [place] [facility] [address] [id number] [place] [address]- 0302 30 Oct, 2013 [facility] [place] [facility] [address] [id number] [place] [address]- 0487 30 Oct, 2013 [facility] [place] [facility] [address] [id number] [address]- 4398 26 Sep, 2013 [facility] [place] [facility] [address] [id number] [place] [address]- 0809 26 Sep, 2013 [facility] [place] [facility] [address] [id number] [place] [address]- 9457 22 Oct, 2013 [facility] [place] [facility] [address] [id number] [place] [address]- 4235 22 Sep, 2013 [facility] [place] [facility] [address] [id number] [place] [address]- 254 18 Sep, 2013 [facility] [place] [facility] [address] [id number] [place] [address] 2546 18 Sep, 2013 [facility] [place] [facility] [address] [id number] [address]- 0026 18 Sep, 2013 [facility] [place] [facility] [address] [id number] [place] [address]- 2548 18 Sep, 2013 [facility] [place] [facility] [address] [id number] [place] [address]- 8788 Oct, [facility] [place] [facility] [address] [id number] [place] [address]- 1461 Oct, [facility] [place] [facility] [address] [id number] [place] [address]- 0394 Oct, [facility] [place] [facility] [address] [id number] [place] [address]- 9124 Oct, [facility] [place] [facility] [address] [id number] [place] [address]- 9687 Sep, [facility] [place] [facility] [address] [id number] [place] [address]- 5377 Sep, [facility] [place] [facility] [address] [id number] [place] [address]- 3736 Sep, [facility] [place] [facility] [address] [id number] [place] [address]- 4704 Sep, [facility] [place] [facility] [address] [id number] [place] [address]- 4657 Sep, [facility] [place] [facility] [address] [id number] [place] [address]- 1768 Sep, [facility] [place] [facility] [address] [id number] [place] [address]- 6916 Sep, [facility] [place] [facility] [address] [id number] [place] [address]- 0777 Sep, [facility] [place] [facility] [address] [id number] [place] [address]- 9859 Sep, [facility] [place] [facility] [address] [id number] [place] [address]- 4586 Sep, [facility] [place] [facility] [address] [id number] [place] [address]- 2547 Sep, [facility] [place] [facility] [address] [id number] [place] [address]- 4032 Sep, [facility] [place] [facility] [address] [id number] [place] [address]- 1829 Sep, [facility] [place] [facility] [address] [id number] [place] [address]- 5369 Sep, [facility] [place] [facility] [address] [id number] [place] [address]- 7342 Sep, [facility] [place] [facility] [address] [id number] [place] [address]- 8275 Sep, [facility] [place] [facility] [address] [id number] [place] [address]- 6392 Sep, [facility] [place] [facility] [address] [id number] [place] [address]- 8383 Sep, [facility] [place] [facility] [address] [id number] [place] [address]- 6755 Aug, [facility] [place] [facility] [address] [id number] [place] [address]- 1000 Aug, [facility] [place] [facility] [address] [id number] [place] [address]- 6070 Aug, [facility] [place] [facility] [address] [id number] [place] [address]- 4574 Aug, [facility] [place] [facility] [address] [id number] [place] [address]- 4668 Aug, [facility] [place] [facility] [address] [id number] [place] [address]- 6533 Aug, [facility] [place] [facility] [address] [id number] [place] [address]- 4043 Jul, [facility] [place] [facility] [address] [id number] [place] [address]- 1828 Jul, [facility] [place] [facility] [address] [id number] [place] [address]- 0263 Jul, [facility] [place] [facility] [address] [id number] [place] [address]- 6719 Jul, [facility] [place] [facility] [address] [id number] [place] [address]- 9475 June, [facility] [place] [facility] [address] [id number] [place] [address]- 0067 June, [facility] [place] [facility] [address] [id number] [place] [address]- 8224 June, [facility] [place] [facility] [address] [id number] [place] [address]- 8880 June, [facility] [place] [facility] [address] [id number] [place] [address]- 9046 June, [facility] [place] [facility] [address] [id number] [place] [address]- 1239 June, [facility] [place] [facility] [address] [id number] [place] [address]- 2886 June, [facility] [place] [facility] [address] [id number] [place] [address]- 3523 May, [facility] [place] [facility] [address] [id number] [place] [address]- 0611 May, [facility] [place] [facility] [address] [id number] [place] [address]- 9108 May, [facility] [place] [facility] [address] [id number] [place] [address]- 4370 May, [facility] [place] [facility] [address] [id number] [place] [address]- 8687 May, [facility] [place] [facility] [address] [id number] [place] [address]- 2584 May, [facility] [place] [facility] [address] [id number] [place] [address]- 0190 Apr, [facility] [place] [facility] [address] [id number] [place] [address]- 1636 Apr, [facility] [place] [facility] [address] [id number] [place] [address]- 1959 28 Apr, 2013 [facility] [place] [facility] [address] [id number] [place] [address]- 3503 28 Apr, 2013 [facility] [place] [facility] [address] [id number] [place] [address]- 5936 14 Apr, 2013 [facility] [place] [facility] [address] [id number] [place] [address]- 5436 14 Apr, 2013 [facility] [place] [facility] [address] [id number] [place] [address]- 1947 Apr, [facility] [place] [facility] [address] [id number] [place] [address]- 4200 Apr, [facility] [place] [facility] [address] [id number] [place] [address]- 1105 Apr, [facility] [place] [facility] [address] [id number] [place] [address]- 0455 10 Apr, 2013 [facility] [place] [facility] [address] [id number] [place] [address]- 6568 04 Apr, 2013 [facility] [place] [facility] [address] [id number] [place] [address]- 5565 04 Apr, 2013 [facility] [place] [facility] [address] [id number] [place] [address]- 2605 Apr, [facility] [place] [facility] [address] [id number] [place] [address]- 0413 Apr, [facility] [place] [facility] [address] [id number] [place] [address]- 3035 Mar, [facility] [place] [facility] [address] [id number] [place] [address]- 9503 Mar, [facility] [place] [facility] [address] [id number] [place] [address] 05 Mar, 2013 [facility] [place] [facility] [address] [id number] [place] [address] Feb, [facility] [address] [id number] [place] [address] Feb, [facility] [place] [facility] [address] [id number] [place] [address] Feb, [facility] [place] [facility] [address] [id number] [place] [address] Feb, [facility] [place] [facility] [address] [id number] [place] [address] Feb, [facility] [place] [facility] [address] [id number] [place] [address] Feb, [facility] [place] [facility] [address] [id number] [place] [address] Feb, [facility] [place] [facility] [address] [id number] [place] [address] Feb, [facility] [place] [facility] [address] [id number] [place] [address] Feb, [facility] [place] [facility] [address] [id number] [place] [address] Feb, [facility] [place] [facility] [address] [id number] [place] [address] Jan, [facility] [place] [facility] [address] [id number] [address] Jan, [facility] [place] [facility] [address] [id number] [place] [address] Jan, [facility] [place] [facility] [address] [id number] [place] [address] Jan, [facility] [place] [facility] [address] [id number] [place] [address] Jan, [facility] [place] [facility] [address] [id number] [place] [address] Jan, [facility] [place] [facility] [address] [id number] [place] [address] 23 Jan, 2012 [facility] [address] [id number] [place] [address]- [address] 23 Jan, 2012 [facility] [address] [id number] [place] [address]- [address] Jan, 2012 [facility] [address] [id number] [place] [address]- [address] 19 Jan, 2012 [facility] [place] [facility] [address] [id number] [place] [address] 17 Jan, 2012 [facility] [address] [id number] [place] [address]- [address] 17 Jan, 2012 [facility] [address] [id number] [place] [address] 16 Jan, 2012 [facility] [address] [id number] [place] [address] 80[address] Jan, [facility] [address] [id number] [place] [address]- 77[address] Jan, [facility] [address] [id number] [place] [address] 27[address] Jan, [facility] [address] [facility] [id number] [place] [address] Jan, [facility] [place] [facility] [address] [id number] [place] [address]- 235[address] 05 Jan, 2013 [facility] [place] [facility] [address] [id number] [place] [address]- [address]237 05 Jan, 2013 [facility] [place] [facility] [address] [id number] [place] [address]- [address] 05 Jan, 2013 [facility] [place] [facility] [address] [id number] [place] [address]- [address]36 05 Jan, 2013 [facility] [place] [facility] [address] [id number] [place] [address] Dec, [facility] [place] [facility] [address] [id number] [place] [address] 4039 Dec, [facility] [place] [facility] [address] [id number] [place] [address] 8933 Dec, [facility] [place] [facility] [address] [id number] [place] [address] Dec, [facility] [place] [facility] [address] [id number] [place] [address]- 29[address] Dec, [facility] [place] [facility] [address] [id number] [place] [address] Dec, [facility] [place] [facility] [address] [id number] [place] [address]- [address] Dec, [facility] [place] [facility] [address] [id number] [place] [address]- [address] Dec, [facility] [place] [facility] [address] [id number] [place] [address] 97[address] Dec, [facility] [place] [facility] [address] [id number] [place] [address]- 99[address] Dec, [facility] [place] [facility] [address] [id number] [place] [address] Nov, [facility] [place] [facility] [address] [id number] [place] [address]- [address] Nov, [facility] [place] [facility] [address] [id number] [place] [address] Nov, [facility] [place] [facility] [address] [id number] [place] [address]- [address] Nov, [facility] [place] [facility] [address] [id number] [place] [address]- 8[address] Nov, [facility] [place] [facility] [address] [id number] [place] [address] Nov, [facility] [place] [facility] [address] [id number] [place] [address]- [address] Nov, [facility] [place] [facility] [address] [id number] [place] [address]- 33[address] Nov, [facility] [place] [facility] [address] [id number] [place] [address]- [address]266 Nov, [facility] [place] [facility] [address] [id number] [place] [address] 2546 Nov, [facility] [place] [facility] [address] [id number] [place] [address]- 65[address] Oct, [facility] [place] [facility] [address] [id number] [place] [address]- 4716 Oct, [facility] [place] [facility] [address] [id number] [place] [address]- 9213 Oct, [facility] [place] [facility] [address] [id number] [place] [address] 68[address] Oct, [facility] [place] [facility] [address] [id number] [place] [address]- 9253 Oct, [facility] [place] [facility] [address] [id number] [place] [address]- 44[address] Sep, [facility] [place] [facility] [address] [id number] [place] [address]- 46[address] Sep, [facility] [place] [facility] [address] [id number] [place] [address]- [address] Aug, [facility] [place] [facility] [address] [id number] [place] [address]- 15[address] Aug, [facility] [place] [facility] [address] [id number] [place] [address]- 9765 Aug, [facility] [place] [facility] [address] [id number] [place] [address] Aug, [facility] [place] [facility] [address] [id number] [place] [address] Aug, [facility] [place] [facility] [address] [id number] [place] [address] Aug, [facility] [address] [id number] [place] [address] 3284 Aug, [facility] [address] [id number] [place] [address] 6[address] Jul, [facility] [address] [id number] [place] [address] 7123 Jul, [facility] [address] [id number] [place] [address] 8[address] June, [facility] [address] [id number] [place] [address] 8192 June, [facility] [address] [id number] [place] [address] 0399 June, [facility] [address] [id number] [place] [address] 4867 June, [facility] [address] [id number] [place] [address] 8758 June, [facility] [address] [id number] [place] [address] 8705 June, [facility] [address] [id number] [place] [address] 0054 June, [facility] [address] [id number] [place] [address]- 1036 June, [facility] [address] [id number] [place] [address]- 7236 June, [facility] [address] [id number] [place] [address]- 8036 June, [facility] [address] [id number] [place] [address] 2016 June, [facility] [address] [id number] [place] [address] May, [facility] [address] [id number] [place] [address] 4625 May, [facility] [address] [id number] [place] [address]- 2443 May, [facility] [address] [id number] [place] [address]- 3684 May, [facility] [address] [id number] [place] [address]- 9738 Apr, [facility] [address] [id number] [place] [address]- 0864 Apr, [facility] [address] [id number] [place] [address]- 8489 Apr, [facility] [address] [id number] [place] [address]- 6975 Mar, [facility] [address] [id number] [place] [address] 385[address] Mar, [facility] [address] [id number] [place] [address]- 2545 Feb, [facility] [address] [id number] [place] [address]- 7064 Feb, [facility] [address] [id number] [place] [address]- 3937 Feb, [facility] [place] [facility] [address] [id number] [place] [address]- 3847 Feb, [facility] [place] [facility] [address] [id number] [place] [address]- 9919 Feb, [facility] [place] [facility] [address] [id number] [place] [address]- 0224 14 Feb, 2012 [facility] [place] [facility] [address] [id number] [place] [address]- 9501 Feb, [facility] [place] [facility] [address] [id number] [place] [address]- 9036 31 Jan, 2012 [facility] [place] [facility] [address] [id number] [place] [address]- 5896 31 Jan, 2012 [facility] [place] [facility] [address] [id number] [place] [address]- 5236 28 Jan, 2012 [facility] [place] [facility] [address] [id number] [place] [address]- 8786 17 Jan, 2012 [facility] [place] [facility] [address] [id number] [place] [address]- 9586 17 Jan, 2012 [facility] [place] [facility] [address] [id number] [place] [address]- 1765 11 Jan, 2012 [facility] [place] [facility] [address] [id number] [place] [address]- 4488 Jan, [facility] [place] [facility] [address] [id number] [place] [address]- 9376 10 Jan, 2012 [facility] [place] [facility] [address] [id number] [place] [address]- 6645 10 Jan, 2012 [facility] [place] [facility] [address] [id number] [place] [address]- 8682 03 Jan, 2012 [facility] [place] [facility] [address] [facility] [id number] [place] [address]- 7990 Jan, [facility] [place] [facility] [address] [id number] [place] [address]- 6515 Dec, [facility] [place] [facility] [address] [id number] [place] [address]- 6343 Dec, [facility] [place] [facility] [address] [id number] [place] [address]- 2753 Dec, [facility] [place] [facility] [address] [facility] [id number] [place] [address]- 1881 05 Dec, 2011 [facility] [place] [facility] [address] [facility] [id number] [place] [address]- 5597 Nov, [facility] [place] [facility] [address] [id number] [place] [address]- 6021 22 Nov, 2011 [facility] [place] [facility] [address] [id number] [place] [address]- 3489 08 Nov, 2011 [facility] [place] [facility] [address] [id number] [place] [address]- 9966 27 Oct, 2011 [facility] [place] [facility] [address] [id number] [place] [address]- 3066 24 Oct, 2011 [facility] [place] [facility] [address] [id number] [place] [address] 2544 21 Oct, 2011 [facility] [place] [facility] [address] [id number] [place] [address]- 3296 10 Oct, 2011 [facility] [place] [facility] [address] [id number] [place] [address]- 8008 07 Oct, 2011 [facility] [place] [facility] [address] [id number] [place] [address]- 5065 Oct, [facility] [place] [facility] [address] [id number] [place] [address]- 7654 Oct, [facility] [place] [facility] [address] [id number] [place] [address]- 5741 29 Sep, 2011 [facility] [place] [facility] [address] [id number] [place] [address]- 5399 Sep, [facility] [place] [facility] [address] [id number] [place] [address]- 7264 Sep, [facility] [place] [facility] [address] [id number] [place] [address]- 5753 Sep, [facility] [place] [facility] [address] [id number] [place] [address]- 6507 Sep, [facility] [place] [facility] [address] [id number] [place] [address]- 7630 Aug, [facility] [place] [facility] [address] [id number] [place] [address]- 7828 26 Aug, 2011 [facility] [place] [facility] [address] [id number] [place] [address]- 3198 17 Aug, 2011 [facility] [place] [facility] [address] [id number] [place] [address]- 4316 16 Aug, 2011 [facility] [place] [facility] [address] [id number] [place] [address]- 9866 Aug, [facility] [place] [facility] [address] [id number] [place] [address]- 0246 Aug, [facility] [place] [facility] [address] [id number] [place] [address]- 4782 Aug, [facility] [place] [facility] [address] [id number] [place] [address]- 3031 Jul, [facility] [place] [facility] [address] [id number] [place] [address]- 4809 Jul, [facility] [place] [facility] [address] [id number] [place] [address]- 6568 Jul, [facility] [place] [facility] [address] [id number] [place] [address]- 7555 Jul, [facility] [place] [facility] [address] [id number] [place] [address]- 1676 Jul, [facility] [place] [facility] [address] [id number] [place] [address]- 7399 Jul, [facility] [place] [facility] [address] [id number] [place] [address]- 4837 Jul, [facility] [place] [facility] [address] [id number] [place] [address]- 6002 Jul, [facility] [place] [facility] [address] [id number] [place] [address]- 2341 05 Jul, 2011 [facility] [place] [facility] [address] [id number] [place] [address]- 8471 June, [facility] [place] [facility] [address] [id number] [place] [address]- 3838 June, [facility] [address] [id number] [place] [address]- 0402 June, [facility] [address] [id number] [place] [address]- 9626 June, [facility] [address] [id number] [place] [address]- 8645 June, [facility] [address] [id number] [place] [address]- 8939 June, [facility] [address] [id number] [place] [address]- 5863 June, [facility] [address] [id number] [place] [address]- 3967 June, [facility] [address] [id number] [place] [address]- 4261 May, [facility] [address] [id number] [place] [address]- 5364 May, [facility] [address] [id number] [place] [address]- 7295 May, [facility] [address] [id number] [place] [address]- 6666 May, [facility] [address] [id number] [place] [address]- 9007 16 May, 2011 [facility] [address] [id number] [place] [address]- 5250 16 May, 2011 [facility] [address] [id number] [place] [address] May, [facility] [address] [id number] [place] [address] [address] Apr, [facility] [address] [id number] [place] [address]- 0356 Apr, [facility] [address] [id number] [place] [address]- 4682 Apr, [facility] [place] [facility] [address] [id number] [place] [address]- 4286 19 Apr, 2011 [facility] [place] [facility] [address] [id number] [place] [address]- 8690 Apr, [facility] [place] [facility] [address] [id number] [place] [address]- 2136 Apr, [facility] [place] [facility] [address] [id number] [place] [address]- 8350 Apr, [facility] [place] [facility] [address] [id number] [place] [address]- 7556 Mar, [facility] [place] [facility] [address] [facility] [id number] [place] [address]- 0265 20 Mar, 2011 [facility] [place] [facility] [address] [id number] [place] [address]- 7586 14 Mar, 2011 [facility] [place] [facility] [address] [id number] [place] [address]- 1051 13 Mar, 2011 [facility] [place] [facility] [address] [facility] [id number] [place] [address]- 3012 09 Mar, 2011 [facility] [place] [facility] [address] [id number] [place] [address]- 4007 Mar, [facility] [place] [facility] [address] [id number] [place] [address]- 3366 Mar, [facility] [place] [facility] [address] [id number] [place] [address]- 4498 Feb, [facility] [place] [facility] [address] [id number] [place] [address]- 0548 Feb, [facility] [place] [facility] [address] [id number] [place] [address]- 1526 Feb, [facility] [place] [facility] [address] [id number] [place] [address]- 5037 Feb, [facility] [address] [id number] [place] [address]- 7076 Feb, [facility] [address] [id number] [place] [address]- 2256 Feb, [facility] [address] [id number] [place] [address]- 4304 Feb, [facility] [address] [id number] [place] [address] 2547 Feb, [facility] [address] [id number] [place] [address]- 7875 Feb, [facility] [address] [id number] [place] [address]- 3447 Feb, [facility] [address] [id number] [place] [address]- 3708 Jan, [facility] [address] [id number] [place] [address]- 1979 Jan, [facility] [address] [id number] [place] [address]- 6480 Jan, [facility] [address] [id number] [place] [address]- 7010 Jan, [facility] [address] [id number] [place] [address] 2546 Jan, [facility] [address] [id number] [place] [address]- 2547 Jan, [facility] [place] [facility] [address] [id number] [place] [address] 2546 15 Jan, 2011 [facility] [place] [facility] [address] [id number] [place] [address]- 2546 15 Jan, 2011 [facility] [address] [id number] [place] [address] 254 08 Jan, 2011 [facility] [place] [facility] [address] [id number] [place] [address]- 2465 Jan, [facility] [place] [facility] [address] [id number] [place]773 Jan, [facility] [place] [facility] [address] [id number] [place] [address]341 Dec, [facility] [place] [facility] [address] [id number] [place] [address]- 5180 Dec, [facility] [place] [facility] [address] [id number] [place] [address]- 2883 Dec, [facility] [place] [facility] [address] [id number] [place] [address]- 7447 Dec, [facility] [place] [facility] [address] [id number] [place] [address]- 5710 Dec, [facility] [place] [facility] [address] [id number] [place] [address]- 3965 Dec, [facility] [place] [facility] [address] [id number] [place] [address]- 9355 Dec, [facility] [place] [facility] [address] [id number] [place] [address]- 7407 Dec, [facility] [place] [facility] [address] [id number] [place] [address]- 2776 Dec, [facility] [place] [facility] [address] [id number] [place] [address]- 9154 Nov, [facility] [place] [facility] [address] [id number] [place] [address]- 6897 Nov, [facility] [place] [facility] [address] [id number] [place] [address]- 2405 Nov, [facility] [place] [facility] [address] [id number] [place] [address]- 4705 Nov, [facility] [place] [facility] [address] [id number] [place] [address]- 8242 Nov, [facility] [address] [facility] [id number] [place] [address]- 4186 Nov, [facility] [address] [facility] [id number] [place] [address]- 6946 Aug, [facility] [address] [facility] [id number] [place] [address]- 4946 14 Feb, 2010 [facility] [address] [id number] [place] [address]- 4937 14 Jan, 2010 [facility] [address] [facility] [id number] [place] [address]- 3372 Jan, [facility] [address] [facility] [id number] [place] [address]- 4591 Jan, [facility] [address] [facility] [id number] [place] [address]- 5985 Jan, [facility] [address] [facility] [id number] [place] [address]- 8845 Jan, [facility] [address] [facility] [id number] [place] [address]- 2884 Dec, [facility] [address] [facility] [id number] [place] [address]- 3136 Dec, [facility] [address] [facility] [id number] [place] [address]- 5457 Dec, [facility] [address] [facility] [id number] [place] [address]- 3955 Dec, [facility] [address] [facility] [id number] [place] [address]- 1204 Nov, [facility] [address] [facility] [id number] [place] [address]- 4631 Nov, [facility] [address] [facility] [id number] [place] [address]- 0497 Nov, IMMUNIZATIONS No Known Immunizations SOCIAL HISTORY [...]
--- OUTSIDE RECORDS SUMMARY | 2018-01-13 21:44 | XMS REPORT ---
Author Author WYATT SOTO Organization [employer] Address Unknown Phone Unavailable Care Team Providers Care Supplier Quality Engineer Name Role Phone WYATT SOTO CP Unavailable [...]
--- OUTSIDE RECORDS SUMMARY | 2018-01-13 21:44 | XMS REPORT ---
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 Active 95486628 Problem Unspecified episodic mood disorder F39 Active 12754677 Problem Hypertension I10 Active 62451795 Problem Other psychoactive substance dependence, uncomplicated F19.20 Active 2151811 Problem 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
--- OUTSIDE RECORDS SUMMARY | 2018-01-13 21:45 | XMS REPORT ---
Author Author WYATT OSTO Organization [facility] [place] Address [address] [place] [address] Care Team Providers Care Osteopathic Medicine Teacher Name Role Phone WYATT SOTO Unavailable PROBLEMS Type Condition ICD9-CM Code GFK75-[id number] Code Onset Dates Condition Status SNOMED Code Problem Left hip pain M25.552 Active 35145575 Problem Other chronic pain G89.29 Active 64684189 Problem Chronic hepatitis C without hepatic coma B18.2 Active 843493703 Problem Other obesity due to excess calories E66.09 Active 474530723 Problem Body mass index (BMI) of 34.0-34.9 in adult Z68.34 Active 601388855 Problem Other psychoactive substance dependence, 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 Active 7762373 Problem 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, 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 317305824 Problem Gastroesophageal reflux disease, esophagitis presence not specified K21.9 Active 164759137 Problem Venous insufficiency (chronic) (peripheral) I87.2 Active 626672535 Problem Unspecified episodic mood disorder F39 Active 16968176 Problem Hypertension I10 Active 16354772 Problem Combined drug dependence excluding opioids, 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 Active 464529367 Problem Arthritis M19.90 Active 7707688 Problem 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 Active 57319348 Problem Anxiety F41.9 Active 71969483 ALLERGIES Substance Reaction Event Type Date Status Propranolol HCl chest pain, headache Drug Allergy Feb, Active Bactrim unknown Drug Allergy Feb, Active Penicillins unknown Non Drug Allergy Feb, Active ENCOUNTERS Encounter Location Date Diagnosis [facility] [place] [address] [facility]NOTE 3] [id number] [address] Jul, [facility] [place] [address] [facility]NOTE 3] [id number] [address] Jul, Arthritis M19.90 [facility] [place] [address] [place] [address] 34539- 9389 Jul, Left hip pain M25.552 ; Hypertension I10 ; Other obesity due to excess calories E66.09 and Body mass index (BMI) of 34.0-34.9 in adult Z68.34 [facility] [place] [id number] [place] [address] 76569- 1432 Jul, Unspecified episodic mood disorder F39 [facility] [place] [id number] [place] [address] 25683- 3507 June, Gastroesophageal reflux disease, esophagitis presence not specified K21.9 [facility] [place] [id number] [place] [address] 15638- 4475 June, [facility] [place] [id number] [place] [address] 38845- 8761 June, [facility] [place] [id number] [place] [address] 19851- 0005 June, Arthritis M19.90 [facility] [place] [id number] [place] [address] 18964- 5039 June, [facility] [place] [id number] [place] [address] 60362- 2325 June, [facility] [place] [id number] [place] [address] 53926- 3580 June, Unspecified episodic mood disorder F39 [facility] [place] [id number] [place] [address] 29110- 1900 May, Unspecified episodic mood disorder F39 [facility] [place] [id number] [place] [address] 42268- 4792 May, [facility] [place] [id number] [place] [address] 11801- 4833 May, Arthritis M19.90 [facility] [address] [place] [address] 59793 -7672 May, Dysuria R30.0 ; Abscess L02.91 and Acute cystitis without hematuria N30.00 [facility] [place] [address] [place] [address] 40600- 4544 May, Other disorder of impulse control F63.89 ; Unspecified episodic mood disorder F39 ; Combined drug dependence excluding opioids, 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 ; Anxiety F41.9 and Other psychoactive substance dependence, 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 [facility] [place] [id number] [place] [address] 93714- 8882 May, [facility] [place] [id number] [place] [address] 16508- 3453 May, Other disorder of impulse control F63.89 ; Unspecified episodic mood disorder F39 ; Combined drug dependence excluding opioids, 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 ; Other psychoactive substance dependence, 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 and Anxiety F41.9 [facility] [id number] [place] [address] 63129- 4569 May, Other chronic pain G89.29 ; Left hip pain M25.552 ; Hypertension I10 ; 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, 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 and Unspecified episodic mood disorder F39 [facility] [place] [id number] [place] [address] 27845- 4366 Apr, [facility] [id number] [place] [address] 23101 -3174 Apr, Neck pain M54.2 ; Left hip pain M25.552 and Fall, initial encounter W19.XXXA [facility] [place] [id number] [place] [address] 68461- 6866 Apr, Unspecified episodic mood disorder F39 ; Combined drug dependence excluding opioids, 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 ; Anxiety F41.9 ; Other psychoactive substance dependence, 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 and Other disorder of impulse control F63.89 [facility] [place] [id number] [place] [address] 48128- 7354 Apr, [facility] [place] [address] [place] [address] 14[address] Apr, Arthritis M19.90 and Unspecified episodic mood disorder F39 [facility] [place] [id number] [place] [address] 06450- 8274 Apr, Unspecified episodic mood disorder F39 [facility] [place] [id number] [place] [address] 20611- 6086 Apr, [facility] [place] [id number] [place] [address] 97427- 0739 Apr, [facility] [place] [id number] [place] [address] 56310- 1189 Apr, Unspecified episodic mood disorder F39 ; Combined drug dependence excluding opioids, 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 ; Anxiety F41.9 ; Other psychoactive substance dependence, 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 and Other disorder of impulse control F63.89 [facility] [place] [id number] [place] [address] 93122- 1450 Mar, Unspecified episodic mood disorder F39 [facility] [place] [id number] [place] [address] 01623- 6843 Mar, Gastroesophageal reflux disease, esophagitis presence not specified K21.9 [facility] [place] [address] [place] [address] 32375- 2888 Mar, Arthritis M19.90 and Unspecified episodic mood disorder F39 [facility] [place] [address] [place] [address] 36835- 9876 Feb, [facility] [place] [id number] [place] [address] 92165- 8544 Feb, [facility] [place] [id number] [place] [address] 21462- 5717 Feb, [facility] [place] [id number] [place] [address] 40517- 0077 Feb, Arthritis M19.90 [facility] [place] [id number] [place] [address] 94321- 2969 Feb, Non-pressure chronic ulcer of right calf, 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 ; Unspecified episodic mood disorder F39 and Left hip pain M25.552 [facility] [place] [id number] [place] [address] 53257- 5992 Feb, [facility] [place] [id number] [place] [address] 05635- 5393 Feb, [facility] [place] [id number] [place] [address] 65632- 2148 Jan, Arthritis M19.90 [facility] [address] 69270- 0788 Jan, Left hip pain M25.552 and Non-pressure chronic ulcer of right calf, 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 [facility] [id number] [place] [address] 39437- 6394 Jan, Chronic hepatitis C without hepatic coma B18.2 [facility] [id number] [place] [address] 53847- 7309 Jan, Encounter for immunization Z23 ; Venous insufficiency ( chronic) (peripheral) I87.2 ; Non-pressure chronic ulcer of unspecified calf limited to breakdown of skin L97.201 and Gastroesophageal reflux disease, esophagitis presence not specified K21.9 [facility] [id number] [place] [address] 52870- 6085 Jan, [facility] [id number] [place] [address] 61764- 7876 Jan, Chronic hepatitis C without hepatic coma B18.2 and Encounter for immunization Z23 [facility] [id number] [place] [address] 43755- 5285 Jan, Arthritis M19.90 [facility] [id number] [place] [address] 23129- 9048 Jan, [facility] [id number] [place] [address] 77769- 2325 Dec, [facility] [place] [id number] [place] [address] 88167- 9526 Dec, Unspecified episodic mood disorder F39 [facility] [place] [id number] [place] [address] 34555- 8802 Dec, Arthritis M19.90 [facility] [place] [id number] [place] [address] 81629- 8189 Dec, Arthritis M19.90 [facility] [place] [id number] [place] [address] 99632- 6965 Nov, [facility] [place] [id number] [place] [address] 22779- 4172 Nov, [facility] [place] [id number] [place] [address] 77199- 5153 Nov, Other psychoactive substance dependence, 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 ; 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, 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 and Chronic hepatitis C without hepatic coma B18.2 [facility] [place] [id number] [place] [address] 38365- 5360 Nov, Arthritis M19.90 [facility] [id number] [place] [address] 79197 -1687 Oct, Partial thickness burn of abdomen, initial encounter T21.22XA [facility] [place] [id number] [place] [address] 20226- 4618 Oct, [facility] [place] [address] [place] [address] 38735- 1392 Sep, Arthritis M19.90 [facility] [place] [id number] [place] [address] 30756- 9994 Sep, [facility] [place] [id number] [place] [address] 28875- 3756 Sep, [facility] [place] [id number] [place] [address] 92177- 6214 Sep, Unspecified episodic mood disorder F39 ; Chronic hepatitis C without hepatic coma B18.2 and Left hip pain M25.552 [facility] [place] [id number] [place] [address] 47346- 0320 Sep, Arthritis M19.90 and Left hip pain M25.552 [facility] [place] [id number] [place] [address] 99487- 0693 Aug, [facility] [place] [id number] [place] [address] 17177- 0239 Aug, [facility] [place] [id number] [place] [address] 39684- 4101 Aug, Chronic hepatitis C without hepatic coma B18.2 [facility] [place] [id number] [place] [address] 19170- 1215 Aug, [facility] [place] [id number] [place] [address] 62728- 3507 Aug, Chronic hepatitis C without hepatic coma B18.2 [facility] [place] [id number] [place] [address] 40885- 2744 Aug, 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, 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 [facility] [place] [id number] [place] [address] 71169- 7702 Aug, [facility] [place] [id number] [place] [address] 29864- 5260 Aug, Chronic hepatitis C without hepatic coma B18.2 and Hypertension I10 [facility] [place] [id number] [place] [address] 31953- 2836 Jul, [facility] [place] [id number] [place] [address] 17019- 3688 June, [facility] [place] [id number] [place] [address] 50528- 9569 Apr, Fibromyalgia M79.7 ; Left hip pain M25.552 and Decubitus ulcer of sacral region, stage 1 L89.151 [facility] [place] [id number] [place] [address] 28701- 8903 Apr, [facility] [place] [id number] [place] [address] 57509- 8308 Apr, [facility] [place] [id number] [place] [address] 10426- 5863 Feb, [facility] [place] [id number] [place] [address] 08946- 1092 Dec, Anxiety F41.9 ; Combined drug dependence excluding opioids, 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 and Unspecified episodic mood disorder F39 [facility] [place] [id number] [place] [address] 24749- 0408 Dec, [facility] [place] [id number] [place] [address] 89332- 5598 Nov, [facility] [place] [id number] [place] [address] 59778- 7791 Nov, [facility] [place] [id number] [place] [address] 59477- 6927 Nov, Other disorder of impulse control F63.89 and Anxiety F41.9 [facility] [place] [id number] [place] [address] 31941- 8345 Oct, [facility] [id number] [place] [address] 60853 -4255 14 Oct, 2015 Open wound of left thigh, initial encounter S71.102A [facility] [place] [id number] [place] [address] 24368- 8911 Oct, [facility] [place] [id number] [place] [address] 38853- 8642 Sep, Unspecified episodic mood disorder F39 ; Other disorder of impulse control 312.39 ; Combined drug dependence excluding opioids, 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 and Anxiety F41.9 [facility] [place] [id number] [address]- 0871 Sep, Other disorder of impulse control 312.39 ; Combined drug dependence excluding opioids, 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 ; Anxiety F41.9 and Unspecified episodic mood disorder F39 [facility] [place] [address] [address]- 0363 Sep, Other chronic pain G89.29 [facility] [place] [id number] [place] [address] 89010- 5846 Sep, [facility] [place] [id number] [place] [address] 27626- 0286 Sep, [facility] [place] [id number] [place] [address] 79103- 0760 Aug, [facility] [place] [id number] [place] [address] 04036- 9114 Aug, [facility] [place] [id number] [place] [address] 04467- 3601 Aug, [facility] [place] [id number] [place] [address] 19784- 2146 Jul, [facility] [place] [id number] [place] [address] 12289- 2137 Jul, [facility] [place] [id number] [place] [address] 74269- 1128 Jul, [facility] [place] [id number] [place] [address] 96158- 9620 Jul, Arthritis M19.90 ; Chronic hepatitis C without hepatic coma B18.2 and Left hip pain M25.552 [facility] [place] [id number] [place] [address] 78381- 0950 Jul, Left knee pain M25.562 [facility] [place] [address] [address]- 5972 Jul, Combined drug dependence excluding opioids, 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 ; Anxiety F41.9 ; Other disorder of impulse control 312.39 and Unspecified episodic mood disorder F39 [facility] [place] [address] [address]- 5800 13 Jul, 2015 Left knee pain M25.562 [facility] [place] [id number] [place] [address] 11106- 3584 08 Jul, 2015 Left knee pain M25.562 and Left hip pain M25.552 [facility] [place] [id number] [place] [address] 96898- 1444 Jul, [facility] [id number] [place] [address] 17242- 1452 June, [facility] [place] [id number] [place] [address] 68766- 9549 June, Combinations of drug dependence excluding opioid type drug, unspecified abuse 304.80 ; Other disorder of impulse control 312.39 ; Unspecified episodic mood disorder F39 and Anxiety F41.9 [facility] [place] [id number] [place] [address] 77688- 2698 June, Other fatigue R53.83 ; Headache R51 and Left knee pain M25.562 [facility] [place] [id number] [place] [address] 00174- 57[address] June, Unspecified episodic mood disorder F39 ; Combinations of drug dependence excluding opioid type drug, unspecified abuse 304.80 ; Other disorder of impulse control 312.39 and Anxiety F41.9 [facility] [place] [id number] [place] [address]- 270[address] June, Anxiety F41.9 [facility] [place] [id number] [place] [address] 7[address]- 3211 June, Pain in left knee M25.562 [facility] [place] [id number] [place] [address]- [address] June, Anxiety F41.9 and Combinations of drug dependence excluding opioid type drug, unspecified abuse 304.80 [facility] [place] [address] [address] June, Unspecified episodic mood disorder 296.90 ; Combinations of drug dependence excluding opioid type drug, unspecified abuse 304.80 and Other disorder of impulse control 312.39 [facility] [place] [address] [address] June, Anxiety F41.9 and Unspecified episodic mood disorder 296.90 [facility] [place] [id number] [place] [address] [phone]- [phone] May, Arthritis M19.90 [facility] [place] [id number] [place] [address] 85408- 9870 May, Arthritis M19.90 [facility] [place] [id number] [place] [address] [phone]- [address] May, Anxiety F41.9 ; Combinations of drug dependence excluding opioid type drug, unspecified abuse 304.80 and Other disorder of impulse control 312.39 [facility] [place] [address] [address] May, Left knee pain M25.562 [facility] [place] [id number] [place] [address] 6[address]67- [address] May, Arthritis M19.90 [facility] [place] [address] [address] May, [facility] [place] [address] [address] May, Anxiety F41.9 ; Unspecified episodic mood disorder 296.90 ; Combinations of drug dependence excluding opioid type drug, unspecified abuse 304.80 and Other disorder of impulse control 312.39 [facility] [place] [address] [address] May, Left knee pain M25.562 [facility] [place] [address] [address] May, Left knee pain M25.562 ; Combinations of drug dependence excluding opioid type drug, unspecified abuse 304.80 ; Other disorder of impulse control 312.39 ; Fibromyalgia M79.7 ; Hypertension I10 ; Unspecified episodic mood disorder 296.90 and Left hip pain M25.552 [place] [id number] [place] [address]1039- 3425 May, Unspecified episodic mood disorder 296.90 ; Other disorder of impulse control 312.39 ; Combinations of drug dependence excluding opioid type drug, unspecified abuse 304.80 and Anxiety F41.9 [place] [address] [place] [id number] [place] [address] 98290- 4181 May, Left knee pain M25.562 ; Combinations of drug dependence excluding opioid type drug, unspecified abuse 304.80 ; Other disorder of impulse control 312.39 ; Fibromyalgia M79.7 ; Hypertension I10 ; Unspecified episodic mood disorder 296.90 and Left hip pain M25.552 [place] [id number] [place] [address] 34452- 1530 May, Anxiety F41.9 ; Unspecified episodic mood disorder 296.90 ; Other disorder of impulse control 312.39 and Combinations of drug dependence excluding opioid type drug, unspecified abuse 304.80 [place] [id number] [place] [address] 62226- 2286 Apr, 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 and 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, implants and grafts, initial encounter T84.82XA [place] [id number] [place] [address] 03029- 2186 Apr, Anxiety F41.9 ; Unspecified episodic mood disorder 296.90 ; Combinations of drug dependence excluding opioid type drug, unspecified abuse 304.80 and Other disorder of impulse control 312.39 [place] [id number] [place] [address] 64216- 2974 Apr, Arthritis M19.90 [place] [id number] [place] [address] 50133- 8909 Apr, Anxiety F41.9 ; Unspecified episodic mood disorder 296.90 ; Combinations of drug dependence excluding opioid type drug, unspecified abuse 304.80 and Other disorder of impulse control 312.39 [facility] [place] [id number] [place] [address] 99136- 4315 17 Apr, 2015 Arthritis M19.90 [facility] [place] [id number] [place] [address] 19958- 6408 15 Apr, 2015 [facility] [place] [id number] [place] [address] 48456- 6034 15 Apr, 2015 [facility] [place] [id number] [place] [address] 25666- 5596 14 Apr, 2015 Unspecified episodic mood disorder 296.90 ; Combinations of drug dependence excluding opioid type drug, unspecified abuse 304.80 ; Other disorder of impulse control 312.39 and Anxiety F41.9 [facility] [id number] [place] [address] 04701 -5231 11 Apr, 2015 Left knee pain M25.562 [facility] [place] [id number] [place] [address] 09306- 9547 11 Apr, 2015 [facility] [place] [id number] [place] [address] 47795- 8444 29 Mar, 2015 Unspecified episodic mood disorder 296.90 ; Anxiety F41.9 ; Other disorder of impulse control 312.39 and Combinations of drug dependence excluding opioid type drug, unspecified abuse 304.80 [facility] [place] [id number] [place] [address] 38866- 8570 Mar, Hyperpigmentation L81.9 [facility] [place] [id number] [place] [address] 49718- 0393 Mar, Arthritis M19.90 and Anxiety F41.9 [facility] [place] [address] [place] [address] 64202- 2121 Mar, Unspecified episodic mood disorder F39 ; Combined drug dependence excluding opioids, 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 ; Other disorder of impulse control F63.89 and Anxiety F41.9 [place] [id number] [place] [address] 24570- 7737 12 Mar, 2015 Well woman exam Z01.419 ; Other fatigue R53.83 ; Hot flashes N95.1 ; Depression, unspecified depression type F32.9 and Body mass index (BMI) of 23.0-23.9 in adult Z68.[address] 73540- 1176 11 Mar, 2015 Unspecified episodic mood disorder 296.90 ; Other disorder of impulse control 312.39 and Anxiety F41.[address] 92652- 1077 11 Mar, 2015 Well woman exam Z01.419 [...] of breast Z12.39 and Limited mobility Z74.09 [place] [address] [place] [id number] [place] [address] 63798- 5795 10 Mar, 2015 [place] [address] [place] [id number] [place] [address] 02345- 6012 Mar, [place] [address] [place] [id number] [place] [address] 26867- 2377 08 Mar, 2015 [place] [address] [id number] [place] [address] 35461- 5329 03 Mar, 2015 Other specified complication of internal orthopedic prosthetic devices, implants and grafts, initial encounter T84.89XA ; Fibromyalgia M79.7 ; Hypertension I10 ; Anemia D64.9 ; Insomnia G47.00 ; Anxiety F41.9 ; Arthritis M19.90 and Migraine G43.909 [facility] [place] [address] [address]- 1504 Mar, [facility] [place] [address] 20584- 0852 Feb, [facility] [place] [address] 24301- 0572 Feb, Arthritis M19.90 and Anxiety F41.9 [facility] [place] [address] 61967- 3803 Feb, [facility] [place] [address] 18074- 5740 Feb, [facility] [place] [address] 73450- 5556 Feb, [facility] [place] [address] 65976- 2018 Feb, [facility] [place] [address] 80101- 8026 Feb, Anxiety F41.9 [facility] [place] [address] 52077- 7893 Feb, [facility] [place] [address] 56839- 5073 Feb, [facility] [place] [address] 53203- 5007 Feb, 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 and Fibromyalgia M79.7 [facility] [place] [address] 73141- 5588 Feb, [facility] [place] [address] 84600- 2110 Jan, [facility] [place] [address] [place] [address]- 2700 Jan, [facility] [place] [address] [address]- 1232 Jan, [facility] [place] [address] [address]- 0153 Jan, [facility] [place] [id number] [place] [address] 92629- 4079 Jan, [facility] [place] [address] [address]- 4249 Jan, [facility] [place] [id number] [place] [address] 26183- 3029 Jan, [facility] [place] [id number] [place] [address] 99437- 0766 Jan, [facility] [place] [address] [place] [id number] [place] [address] 68460- 8254 Dec, [facility] [place] [address] [address]- 7749 Dec, Left knee pain M25.562 [facility] [place] [address] [id number] [place] [address] 00283- 9043 Dec, Left knee pain M25.562 [facility] [place] [address] [address]- 1452 Dec, Fibromyalgia M79.7 ; Hypertension I10 and Arthritis M19.90 [facility] [place] [address] [address]- 8344 Dec, [facility] [place] [address] [address]- 0600 Dec, [facility] [place] [address] [address]- 7051 Dec, [facility] [place] [address] [address]- 6582 Dec, [facility] [place] [address] [id number] [address]- 7980 Nov, 2014 [facility] [address] [id number] [place] [address]- 7245 Nov, 2014 [facility] [place] [facility] [address] [id number] [address]- 5388 Nov, 2014 [facility] [place] [facility] [id number] [place] [address] 60728- 8859 Nov, 2014 Hypertension I10 [facility] [address] [id number] [place] [address]- 3182 23 Oct, 2014 [facility] [place] [facility] [address] [id number] [place] [address]- 3252 17 Oct, 2014 [facility] [id number] [address]- 8314 Oct, 2014 [facility] [place] [facility] [address] [place] [id number] [place] [address] 75316- 3300 Oct, 2014 [facility] [place] [facility] [id number] [address]- 4194 Oct, [facility] [place] [facility] [address] [address]- 0025 Sep, [facility] [place] [facility] [id number] [address]- 1371 Sep, [facility] [place] [facility] [id number] [address]- 6883 Sep, Hip pain associated with recalled total hip arthroplasty hardware 996.77 [facility] [place] [facility] [address] [id number] [address]- 1757 Sep, [facility] [place] [facility] [address] [facility]NOTE [facility] [id number] [address]- 1356 Sep, [facility] [place] [facility] [id number] [address]- 2599 Sep, 2014 [facility] [place] [facility] [address] [id number] [place] [address]- 9819 14 Aug, 2014 [facility] [address] [id number] [place] [address]- 2074 Jul, [facility] [place] [facility] [address] [id number] [place] [address]- 6206 June, [facility] [place] [facility] [address] [id number] [place] [address]- 3396 June, [facility] [place] [facility] [address] [id number] [place] [address]- 3306 June, [facility] [place] [facility] [address] [id number] [place] [address]- 8706 June, [facility] [place] [facility] [address] [id number] [place] [address]- 7196 June, [facility] [place] [facility] [address] [id number] [place] [address]- 7496 June, [facility] [address] [id number] [place] [address]- 5987 May, [facility] [place] [facility] [address] [id number] [place] [address]- 2903 May, [facility] [place] [facility] [address] [id number] [place] [address]- 9093 May, [facility] [place] [facility] [address] [id number] [place] [address]- 8516 Apr, [facility] [place] [facility] [address] [id number] [place] [address]- 8896 Apr, [facility] [place] [facility] [address] [id number] [place] [address]- 2546 Apr, [facility] [place] [facility] [address] [id number] [place] [address]- 2546 Apr, [facility] [place] [facility] [address] [id number] [place] [address]- 6689 Apr, [facility] [place] [facility] [address] [id number] [place] [address]- 0095 13 Apr, 2014 [facility] [place] [facility] [address] [id number] [place] [address]- 9872 Apr, [facility] [place] [facility] [address] [id number] [place] [address]- 5458 Apr, [facility] [place] [facility] [address] [id number] [place] [address]- 5307 Apr, [facility] [place] [facility] [address] [id number] [place] [address]- 4919 Apr, [facility] [place] [facility] [address] [id number] [place] [address]- 7241 Apr, [facility] [place] [facility] [address] [id number] [place] [address]- 3966 Mar, [facility] [place] [facility] [address] [id number] [place] [address]- 1346 Mar, [facility] [place] [facility] [address] [id number] [place] [address]- 3335 Mar, [facility] [place] [facility] [address] [id number] [place] [address]- 5413 Mar, [facility] [place] [facility] [address] [id number] [place] [address]- 8909 Mar, [facility] [place] [facility] [address] [id number] [place] [address]- 5381 Mar, [facility] [place] [facility] [address] [id number] [place] 5425 Feb, [facility] [place] [facility] [address] [id number] [place] [address]- 4755 Feb, [facility] [place] [facility] [address] [id number] [place] [address]- 8872 Feb, [facility] [place] [facility] [address] [id number] [place] [address]- 5370 Feb, [facility] [address] [id number] [place] [address]- 1531 Jan, [facility] [place] [facility] [address] [id number] [place] [address]- 8756 Jan, [facility] [place] [facility] [address] [id number] [place] [address]- 1968 Jan, [facility] [place] [facility] [address] [id number] [place] [address]- 7018 Jan, [facility] [place] [facility] [address] [id number] [place] [address]- 7625 Dec, [facility] [place] [facility] [address] [id number] [place] [address]- 8185 Dec, [facility] [place] [facility] [address] [id number] [place] [address]- 4364 Dec, [facility] [place] [facility] [address] [id number] [place] [address]- 0446 Dec, [facility] [place] [facility] [address] [id number] [place] [address]- 5293 Dec, [facility] [place] [facility] [address] [id number] [place] [address]- 8028 Dec, [facility] [place] [facility] [address] [id number] [place] [address]- 5331 Dec, [facility] [place] [facility] [address] [id number] [place] [address]- 8682 Dec, [facility] [place] [facility] [address] [id number] [place] [address]- 1987 Dec, [facility] [place] [facility] [address] [id number] [place] [address]- 1952 Dec, [facility] [place] [facility] [address] [id number] [place] [address]- 7025 Dec, [facility] [place] [facility] [address] [id number] [place] [address]- 5759 31 Nov, 2013 [facility] [place] [facility] [address] [id number] [place] [address]- 3266 28 Nov, 2013 [facility] [place] [facility] [address] [id number] [place] [address]- 5772 28 Nov, 2013 [facility] [place] [facility] [address] [id number] [place] [address]- 1858 17 Nov, 2013 [facility] [place] [facility] [address] [id number] [place] [address]- 6849 17 Nov, 2013 [facility] [place] [facility] [address] [id number] [place] [address]- 7004 15 Nov, 2013 [facility] [place] [facility] [address] [id number] [place] [address]- 0870 15 Nov, 2013 [facility] [place] [facility] [address] [id number] [place] [address]- 2229 15 Nov, 2013 [facility] [place] [facility] [address] [id number] [place] [address]- 5496 15 Nov, 2013 [facility] [place] [facility] [address] [id number] [place] [address]- 8271 14 Nov, 2013 [facility] [place] [facility] [address] [id number] [place] [address]- 8988 14 Nov, 2013 [facility] [place] [facility] [address] [id number] [place] [address]- 7558 14 Nov, 2013 [facility] [place] [facility] [address] [id number] [place] [address]- 7927 14 Nov, 2013 [facility] [place] [facility] [address] [id number] [place] [address]- 7900 13 Nov, 2013 [facility] [place] [facility] [address] [id number] [place] [address]- 1906 13 Nov, 2013 [facility] [place] [facility] [address] [id number] [place] [address]- 3381 11 Nov, 2013 [facility] [place] [facility] [address] [id number] [place] [address]- 2519 11 Nov, 2013 [facility] [place] [facility] [address] [id number] [place] [address]- 4003 07 Nov, 2013 [facility] [place] [facility] [address] [facility] [id number] [place] [address]- 7905 07 Nov, 2013 [facility] [place] [facility] [address] [id number] [place] [address]- 1752 07 Nov, 2013 [facility] [place] [facility] [address] [id number] [place] [address]- 1596 07 Nov, 2013 [facility] [place] [facility] [address] [id number] [place] [address]- 1950 30 Oct, 2013 [facility] [place] [facility] [address] [id number] [place] [address]- 1343 30 Sep, 2013 [facility] [place] [facility] [address] [id number] [place] [address]- 7081 26 Sep, 2013 [facility] [place] [facility] [address] [id number] [place] [address]- 7517 26 Sep, 2013 [facility] [place] [facility] [address] [facility]] [id number] [place] [address]- 5802 22 Sep, 2013 [facility] [place] [facility] [address] [id number] [place] [address]- 0605 22 Sep, 2013 [facility] [place] [facility] [address] [id number] [place] [address]- 254 18 Sep, 2013 [facility] [place] [facility] [address] [id number] [place] [address]- 7201 18 Sep, 2013 [facility] [place] [facility] [address] [facility] [id number] [place] [address]- 2145 18 Sep, 2013 [facility] [place] [facility] [address] [facility]] [id number] [place] [address]- 7473 18 Sep, 2013 [facility] [place] [facility] [address] [id number] [place] [address]- 5744 Oct, [facility] [place] [facility] [address] [id number] [place] [address]- 9481 Oct, [facility] [place] [facility] [address] [id number] [place] [address]- 7666 Oct, [facility] [place] [facility] [address] [id number] [place] [address]- 0512 Oct, [facility] [place] [facility] [address] [id number] [place] [address]- 1202 Sep, [facility] [place] [facility] [address] [id number] [place] [address]- 1644 Sep, [facility] [place] [facility] [address] [id number] [place] [address] Sep, [facility] [place] [facility] [address] [id number] [place] [address] Sep, [facility] [place] [facility] [address] [id number] [place] [address] Sep, [facility] [place] [facility] [address] [id number] [place] [address] Sep, [facility] [place] [facility] [address] [id number] [place] [address] Sep, [facility] [place] [facility] [address] [id number] [place] [address] Sep, [facility] [place] [facility] [address] [id number] [place] [address] Sep, [facility] [place] [facility] [address] [id number] [place] [address] Sep, [facility] [place] [facility] [address] [id number] [place] [address] Sep, [facility] [place] [facility] [address] [id number] [place] [address] Sep, [facility] [place] [facility] [address] [id number] [place] [address] Sep, [facility] [place] [facility] [address] [id number] [place] [address] Sep, [facility] [place] [facility] [address] [id number] [place] [address] Sep, [facility] [place] [facility] [address] [id number] [place] [address] Sep, [facility] [place] [facility] [address] [id number] [place] [address] Sep, [facility] [place] [facility] [address] [id number] [place] [address]- [address] Sep, [facility] [place] [facility] [address] [id number] [place] [address] Aug, [facility] [place] [facility] [address] [id number] [place] [address] Aug, [facility] [place] [facility] [address] [id number] [place] [address] Aug, [facility] [place] [facility] [address] [id number] [place] [address] Aug, [facility] [place] [facility] [address] [id number] [place] [address] Aug, [facility] [place] [facility] [address] [id number] [place] [address] Aug, [facility] [place] [facility] [address] [id number] [place] [address] Jul, [facility] [place] [facility] [address] [id number] [place] [address] Jul, [facility] [place] [facility] [address] [id number] [place] [address] Jul, [facility] [place] [facility] [address] [id number] [place] [address] Jul, [facility] [place] [facility] [address] [id number] [place] [address] June, [facility] [place] [facility] [address] [id number] [place] [address] June, [facility] [place] [facility] [address] [id number] [place] [address] June, [facility] [place] [facility] [address] [id number] [place] [address] June, [facility] [place] [facility] [address] [id number] [place] [address] June, [facility] [place] [facility] [address] [id number] [place] [address] June, [facility] [place] [facility] [address] [id number] [place] [address] June, [facility] [place] [facility] [address] [id number] [place] [address] May, [facility] [place] [facility] [address] [id number] [place] [address] May, [facility] [place] [facility] [address] [id number] [place] [address] May, [facility] [place] [facility] [address] [id number] [place] [address]- [address] May, [facility] [place] [facility] [address] [id number] [place] [address] May, [facility] [place] [facility] [address] [id number] [place] [address]- [address] May, [facility] [place] [facility] [address] [id number] [place] [address] Apr, [facility] [place] [facility] [address] [id number] [place] [address] Apr, [facility] [place] [facility] [address] [id number] [place] [address] Apr, [facility] [place] [facility] [address] [id number] [place] [address]- [address] 28 Apr, 2013 [facility] [place] [facility] [address] [id number] [place] [address]- [address] 14 Apr, 2013 [facility] [place] [facility] [address] [id number] [place] [address] 14 Apr, 2013 [facility] [place] [facility] [address] [id number] [place] [address] Apr, [facility] [place] [facility] [address] [id number] [place] [address] Apr, [facility] [place] [facility] [address] [id number] [place] [address]- [address] Apr, [facility] [place] [facility] [address] [id number] [place] [address]- [address] Apr, [facility] [place] [facility] [address] [id number] [place] [address]- [address] Apr, [facility] [place] [facility] [address] [address] [id number] [place] [address] Apr, [facility] [place] [facility] [address] [id number] [place] [address] Apr, [facility] [place] [facility] [address] [id number] [place] [address] 2479 Apr, [facility] [place] [facility] [address] [id number] [place] [address] Mar, [facility] [place] [facility] [address] [id number] [place] [address] 2504 Mar, [facility] [place] [facility] [address] [id number] [place] [address] 05 Mar, 2013 [facility] [place] [facility] [address] [id number] [place] [address] Feb, [facility] [address] [id number] [place] [address] 1266 Feb, [facility] [place] [facility] [address] [id number] [place] [address]- 5564 Feb, [facility] [place] [facility] [address] [id number] [place] [address] 8653 Feb, [facility] [place] [facility] [address] [id number] [place] [address] 4240 Feb, [facility] [place] [facility] [address] [id number] [place] [address] 6470 Feb, [facility] [place] [facility] [address] [id number] [place] [address]- 0790 Feb, [facility] [address] [id number] [place] [address]- 7022 Feb, [facility] [place] [facility] [address] [id number] [place] [address]- 5511 Feb, [facility] [address] [id number] [place] [address]- 8868 Feb, [facility] [place] [facility] [address] [id number] [place] [address]- 6159 Jan, [facility] [place] [facility] [address] [id number] [place] [address]- 0911 Jan, [facility] [place] [facility] [address] [id number] [place] [address]- 9734 Jan, [facility] [place] [facility] [address] [id number] [place] [address]- 9436 Jan, [facility] [place] [facility] [address] [id number] [place] [address]- 9872 Jan, [facility] [place] [facility] [address] [id number] [place] [address]- 6232 Jan, [facility] [place] [facility] [address] [id number] [place] [address]- 5519 23 Jan, 2012 [facility] [address] [id number] [place] [address]- 7546 Jan, 2012 [facility] [place] [facility] [address] [id number] [place] [address]- 8636 Jan, [facility] [address] [id number] [place] [address]- 8036 Jan, [facility] [place] [facility] [address] [id number] [place] [address]- 8810 17 Jan, 2013 [facility] [address] [id number] [place] [address] 3046 17 Jan, 2013 [facility] [place] [facility] [address] [id number] [place] [address]- 2768 16 Jan, 2013 [facility] [address] [id number] [place] [address]- 5914 Jan, [facility] [address] [id number] [place] [address]- 5868 Jan, [facility] [place] [facility] [address] [id number] [place] [address]- 0332 Jan, [facility] [address] [id number] [place] [address]- 0216 Jan, [facility] [place] [facility] [address] [id number] [place] [address]- 7623 Jan, [facility] [place] [facility] [address] [id number] [place] [address]- 6506 Jan, [facility] [place] [facility] [address] [id number] [place] [address]- 9516 Jan, [facility] [place] [facility] [address] [id number] [place] [address]- 5216 Jan, [facility] [place] [facility] [address] [id number] [place] [address]- 4945 Dec, [facility] [place] [facility] [address] [id number] [place] [address] 2382 Dec, [facility] [place] [facility] [address] [id number] [place] [address]- 4895 Dec, [facility] [place] [facility] [address] [id number] [place] [address]- 0868 Dec, [facility] [place] [facility] [address] [id number] [place] [address]- 3521 Dec, [facility] [place] [facility] [address] [id number] [place] [address]- 2999 Dec, [facility] [place] [facility] [address] [id number] [place] [address]- 6713 Dec, [facility] [place] [facility] [address] [id number] [place] [address]- 2862 Dec, [facility] [place] [facility] [address] [id number] [place] [address]- 3000 Dec, [facility] [place] [facility] [address] [id number] [place] [address]- 8673 Dec, [facility] [place] [facility] [address] [id number] [place] [address]- 7120 Nov, [facility] [place] [facility] [address] [id number] [place] [address]- 4043 Nov, [facility] [place] [facility] [address] [id number] [place] [address]- 1141 Nov, [facility] [place] [facility] [address] [id number] [place] [address]- 2434 Nov, [facility] [place] [facility] [address] [id number] [place] [address]- 7540 Nov, [facility] [place] [facility] [address] [id number] [place] [address]- 9355 Nov, [facility] [place] [facility] [address] [id number] [place] [address]- 9331 11 Nov, 2012 [facility] [address] [id number] [place] [address]- 5496 11 Nov, 2012 [facility] [place] [facility] [address] [id number] [place] [address] 10 Nov, 2012 [facility] [place] [facility] [address] [id number] [place] [address]- 8166 Nov, [facility] [place] [facility] [address] [id number] [place] [address]- 8246 Oct, [facility] [place] [facility] [address] [id number] [place] [address]- 5925 Oct, [facility] [place] [facility] [address] [id number] [place] [address]- 9953 Oct, [facility] [place] [facility] [address] [id number] [place] [address]- 4524 Oct, [facility] [place] [facility] [address] [id number] [place] [address]- 7225 Oct, [facility] [place] [facility] [address] [id number] [place] [address]- 6019 Sep, [facility] [place] [facility] [address] [id number] [place] [address]- 8976 Sep, [facility] [place] [facility] [address] [id number] [place] [address]- 6386 Aug, [facility] [place] [facility] [address] [id number] [place] [address]- 9907 Aug, [facility] [place] [facility] [address] [id number] [place] [address]- 4320 Aug, [facility] [place] [facility] [address] [id number] [place] [address]- 7390 Aug, [facility] [place] [facility] [address] [id number] [place] Aug, [facility] [place] [facility] [address] [id number] [place] [address]- 3307 Aug, [facility] [address] [id number] [place] [address]- 0995 Aug, [facility] [address] [id number] [place] [address]- 3049 Jul, [facility] [address] [id number] [place] [address]- 0132 Jul, [facility] [address] [id number] [place] [address]- 1244 June, [facility] [address] [id number] [place] [address]- 6249 June, [facility] [address] [id number] [place] [address]- 7016 June, [facility] [address] [id number] [place] [address]- 3044 June, [facility] [address] [id number] [place] [address]- 4559 June, [facility] [address] [id number] [place] [address]- 1883 June, [facility] [address] [id number] [place] [address]- 5353 June, [facility] [address] [id number] [place] [address]- 8415 June, [facility] [address] [id number] [place] [address]- 8395 June, [facility] [place] [facility] [address] [id number] [place] [address]- 8640 June, [facility] [address] [id number] [place] [address]- 2778 June, [facility] [address] [id number] [place] [address]- 1546 May, [facility] [address] [id number] [place] [address]- 1731 May, [facility] [address] [id number] [place] [address]- 4471 May, [facility] [address] [id number] [place] [address]- 7572 May, [facility] [address] [id number] [place] [address]- 8350 Apr, [facility] [address] [id number] [place] [address]- 0088 Apr, [facility] [address] [id number] [place] [address]- 4218 Apr, [facility] [address] [id number] [place] [address]- 8800 Mar, [facility] [address] [id number] [place] [address]- 0152 Mar, [facility] [address] [id number] [place] [address]- 8476 Feb, [facility] [address] [id number] [place] [address]- 1421 Feb, [facility] [address] [id number] [place] [address]- 4807 Feb, [facility] [place] [facility] [address] [id number] [place] [address]- 1016 Feb, [facility] [place] [facility] [address] [id number] [place] [address]- 8127 16 Feb, 2012 [facility] [place] [facility] [address] [id number] [place] [address]- 3899 Feb, [facility] [place] [facility] [address] [id number] [place] [address]- 8194 Feb, [facility] [place] [facility] [address] [id number] [place] [address]- 7606 31 Jan, 2012 [facility] [address] [id number] [place] [address]- 8386 31 Jan, 2012 [facility] [place] [facility] [address] [id number] [place] [address]- 4446 28 Jan, 2012 [facility] [address] [id number] [place] [address]- 5216 17 Jan, 2012 [facility] [place] [facility] [address] [id number] [place] [address]- 5184 17 Jan, 2012 [facility] [address] [id number] [place] [address]- 2556 Jan, [facility] [place] [facility] [address] [id number] [place] [address]- 5874 Jan, [facility] [address] [id number] [place] [address]- 6608 Jan, [facility] [address] [id number] [place] [address]- 8989 Jan, [facility] [place] [facility] [address] [id number] [place] [address]- 5174 Jan, [facility] [address] [id number] [place] [address]- 2529 Jan, [facility] [place] [facility] [address] [id number] [place] [address]- 0060 Dec, [facility] [place] [facility] [address] [id number] [place] [address]- 2440 Dec, [facility] [place] [facility] [address] [id number] [place] [address]- 6658 Dec, [facility] [place] [facility] [address] [id number] [place] [address]- 0346 Dec, [facility] [place] [facility] [address] [id number] [place] [address] Nov, [facility] [place] [facility] [address] [id number] [place] [address]- 2004 Nov, [facility] [place] [facility] [address] [id number] [place] [address]- 7101 Nov, [facility] [place] [facility] [address] [id number] [place] [address]- 6710 27 Oct, 2011 [facility] [place] [facility] [address] [id number] [place] [address]- 9567 24 Oct, 2011 [facility] [place] [facility] [address] [id number] [place] [address]- 7772 21 Oct, 2011 [facility] [place] [facility] [address] [id number] [place] [address]- 4334 10 Oct, 2011 [facility] [place] [facility] [address] [id number] [place] [address]- 5449 Oct, [facility] [place] [facility] [address] [id number] [place] [address]- 0796 Oct, [facility] [place] [facility] [address] [id number] [place] [address]- 5863 Oct, [facility] [place] [facility] [address] [id number] [place] [address]- 3240 Sep, [facility] [place] [facility] [address] [id number] [place] [address]- 8753 Sep, [facility] [place] [facility] [address] [id number] [place] [address]- 6953 Sep, [facility] [place] [facility] [address] [id number] [place] [address]- 1570 Sep, [facility] [place] [facility] [address] [id number] [place] [address]- 7444 Sep, [facility] [place] [facility] [address] [id number] [place] [address]- 0536 Aug, [facility] [place] [facility] [address] [id number] [place] [address]- 4913 26 Aug, 2011 [facility] [place] [facility] [address] [id number] [place] [address]- 2607 17 Aug, 2011 [facility] [place] [facility] [address] [id number] [place] [address]- 1746 16 Aug, 2011 [facility] [place] [facility] [address] [id number] [place] [address]- 4906 Aug, [facility] [place] [facility] [address] [id number] [place] [address]- 9660 Aug, [facility] [place] [facility] [address] [id number] [place] [address]- 5155 Aug, [facility] [place] [facility] [address] [id number] [place] [address]- 7090 Jul, [facility] [place] [facility] [address] [id number] [place] [address]- 8036 Jul, [facility] [place] [facility] [address] [id number] [place] [address]- 3736 Jul, [facility] [place] [facility] [address] [id number] [place] [address]- 1039 Jul, [facility] [place] [facility] [address] [id number] [place] [address]- 0421 Jul, [facility] [place] [facility] [address] [id number] [place] [address]- 7889 Jul, [facility] [place] [facility] [address] [id number] [place] [address]- 5624 Jul, [facility] [place] [facility] [address] [id number] [place] [address]- 8432 Jul, [facility] [place] [facility] [address] [id number] [place] [address]- 8327 05 Jul, 2011 [facility] [place] [facility] [address] [id number] [place] [address]- 4343 June, [facility] [place] [facility] [address] [id number] [place] [address]- 2712 June, [facility] [place] [facility] [address] [id number] [place] [address]- 6249 June, [facility] [place] [facility] [address] [id number] [place] [address]- 2486 June, [facility] [place] [facility] [address] [id number] [place] [address]- 3863 June, [facility] [place] [facility] [address] [id number] [place] [address]- 0399 June, [facility] [place] [facility] [address] [id number] [place] [address]- 1865 June, [facility] [address] [id number] [place] [address]- 8490 June, [facility] [address] [id number] [place] [address]- 9914 May, [facility] [place] [facility] [address] [id number] [place] [address]- 9881 May, [facility] [place] [facility] [address] [id number] [place] [address]- 9502 May, [facility] [place] [facility] [address] [id number] [place] [address]- 9606 May, [facility] [place] [facility] [address] [id number] [place] [address]- 2341 16 May, 2011 [facility] [place] [facility] [address] [id number] [place] [address]- 1803 16 May, 2011 [facility] [place] [facility] [address] [id number] [place] [address]861 May, [facility] [place] [facility] [address] [id number] [place] [address]173 Apr, [facility] [place] [facility] [address] [id number] [place] [address]- 5663 Apr, [facility] [place] [facility] [address] [id number] [place] [address]- 7946 Apr, [facility] [place] [facility] [address] [id number] [place] [address]- 1356 Apr, [facility] [place] [facility] [address] [facility] [id number] [place] [address]- 9756 Apr, [facility] [place] [facility] [address] [id number] [place] [address]- 5426 Apr, [facility] [place] [facility] [address] [id number] [place] [address]- 5891 Apr, [facility] [place] [facility] [address] [id number] [place] [address]- 4427 Mar, [facility] [place] [facility] [address] [facility]] [id number] [place] [address]- 2344 Mar, [facility] [place] [facility] [address] [id number] [place] [address]- 3270 14 Mar, 2011 [facility] [place] [facility] [address] [id number] [place] [address]- 6060 Mar, [facility] [place] [facility] [address] [facility]] [id number] [place] [address]- 2056 Mar, [facility] [place] [facility] [address] [facility]] [id number] [place] [address]- 8196 Mar, [facility] [place] [facility] [address] [facility]] [id number] [place] [address] 2542 Mar, [facility] [place] [facility] [address] [id number] [place] [address]- 0718 Feb, [facility] [place] [facility] [address] [facility]] [id number] [place] [address]- 4316 Feb, [facility] [place] [facility] [address] [facility]] [id number] [place] [address]- 6806 Feb, [facility] [place] [facility] [address] [id number] [place] [address]- 4786 Feb, [facility] [place] [facility] [address] [id number] [place] [address]- 4186 Feb, [facility] [place] [facility] [address] [id number] [place] [address]- 7686 Feb, [facility] [place] [facility] [address] [id number] [place] [address]- 6666 Feb, [facility] [place] [facility] [address] [id number] [place] [address]- 5423 Feb, [facility] [place] [facility] [address] [id number] [place] [address]- 7712 Feb, [facility] [place] [facility] [address] [id number] [place] [address]- 1177 Feb, [facility] [place] [facility] [address] [id number] [place] [address] Jan, [facility] [place] [facility] [address] [id number] [place] [address] Jan, [facility] [place] [facility] [address] [id number] [place] [address] Jan, [facility] [place] [facility] [address] [id number] [place] [address] Jan, [facility] [place] [facility] [address] [id number] [place] [address] Jan, [facility] [place] [facility] [address] [id number] [place] [address] Jan, [facility] [place] [facility] [address] [id number] [place] [address] 15 Jan, 2011 [facility] [place] [facility] [address] [id number] [place] [address] 15 Jan, 2011 [facility] [place] [facility] [address] [id number] [place] [address] Jan, [facility] [place] [facility] [address] [id number] [place] [address] Jan, [facility] [place] [facility] [address] [id number] [place] [address] Jan, [facility] [place] [facility] [address] [id number] [place] [address] Dec, [facility] [place] [facility] [address] [id number] [place] [address] Dec, [facility] [place] [facility] [address] [id number] [place] [address] Dec, [facility] [place] [facility] [address] [id number] [place] [address] Dec, [facility] [place] [facility] [address] [id number] [place] [address] Dec, [facility] [place] [facility] [address] [id number] [place] [address] Dec, [facility] [place] [facility] [address] [id number] [place] [address] Dec, [facility] [place] [facility] [address] [id number] [place] [address] Dec, [facility] [place] [facility] [address] [id number] [place] [address] Dec, [facility] [place] [facility] [address] [id number] [place] [address] Nov, [facility] [place] [facility] [address] [id number] [place] [address] Nov, [facility] [place] [facility] [address] [id number] [place] [address] Nov, [facility] [place] [facility] [address] [id number] [place] [address] Nov, [facility] [place] [facility] [address] [id number] [place] [address] 24 Nov, 2010 [facility] [address] [id number] [place] [address] Nov, [facility] [address] [facility] [id number] [place] [address] 25[address] Aug, [facility] [address] [facility]] [id number] [place] [address] 14 Feb, 2010 [facility] [address] [id number] [place] [address] 14 Jan, 2010 [facility] [address] [facility]] [id number] [place] [address] 06 Jan, 2010 [facility] [address] [facility]] [id number] [place] [address] 25[address] Jan, [facility] [address] [facility]] [id number] [place] [address] Jan, [facility] [address] [facility]] [id number] [place] [address] 25[address] Jan, [facility] [address] [facility]] [id number] [place] [address] Dec, [facility] [address] [facility]] [id number] [place] [address] Dec, [facility] [address] [facility]] [id number] [place] [address] 2546 Dec, [facility] [address] [facility]] [id number] [place] [address] Dec, [facility] [address] [facility]] [id number] [place] [address] 25[address] Nov, [facility] [address] [facility]] [id number] [place] [address] Nov, [facility] [address] [facility]NOTE [facility]] [id number] [place] [address] Nov, IMMUNIZATIONS No Known Immunizations SOCIAL HISTORY Never Assessed REASON FOR VISIT 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), PT has a wound on the back of the right calf-Jennifer RUCKER PLAN OF CARE Activity Details Follow Up 3 Months Reason: VITAL SIGNS Height 68 in 2017-03-03 Weight 196.6 lbs 2017-03-03 Temperature 98.6 degrees Fahrenheit 2017-03-03 Heart Rate 84 bpm 2017-03-03 Respiratory Rate 18 2017-03-03 BMI 29.89 kg/m2 2017-03-03 Blood pressure systolic 122 mmHg 2017-03-03 Blood pressure diastolic 78 mmHg 2017-03-03 MEDICATIONS Medication Instructions Dosage Frequency Start Date End Date Duration Status Lyrica 150 MG Orally 3 times a day 1 capsule 8h Active Nabumetone 500 MG Orally Twice a day 1 tablet 12h 30 Active Furosemide 20 MG Orally Once a day ONE TABLET 24h 30 Active Cyclobenzaprine HCl 10 MG TAKE ONE TABLET BY MOUTH THREE TIMES DAILY 30 Active Clonidine HCl 0.1 MG Orally twice a day 1 tablet 12h 30 Active Abilify 2 MG Orally Once a day 2 tablets 24h 30 days Active Fluoxetine HCl 40 mg Orally Once a day 2 capsule in the morning 24h 30 Active Sumatriptan Succinate 100 mg Orally Once a day 1 tablet as needed one time 24h 30 Active Klonopin 1 MG Orally 3 times a day 1 tablet 8h 30 days Active Pantoprazole Sodium 40 mg Orally Once a day 1 tablet 24h 30 days Active Aspirin 81 MG Orally Once a day 1 tablet 24h 30 Active Promethazine HCl 25 MG Orally every 12 hrs 1 tablet as needed 12h 30 Active Fentanyl 50 MCG/HR Transdermal [...]
--- OUTSIDE RECORDS SUMMARY | 2018-01-13 21:47 | XMS REPORT ---
Author Author JUAN CARLOS SHEFFIELD Organization [facility] Address [address] 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 [id number] [address] Nov, [facility] [address] [facility] [id number], [place] [address] Oct, [facility] [address] [facility] [id number], [place] [address] Oct, Chronic hepatitis C without hepatic coma B18.2 and Encounter for immunization Z23 [facility] [id number] [place] [address] 74143- 2591 Oct, [facility] [id number] [place] [address] 30163- 6587 Oct, Arthritis M19.90 and Unspecified episodic mood disorder F39 [facility] [address] [address]- [address] Sep, Chronic hepatitis C without hepatic coma B18.2 [facility] [address] [address]25- [address]647 Sep, Gastroesophageal reflux disease, esophagitis presence not specified K21.9 and Other chronic pain G89.29 [facility] [address] 99244- 0037 Sep, [facility] [address] 9[address]34- 7210 Sep, [facility] [id number] [place] [address] 58300- 5218 Sep, Chronic hepatitis C without hepatic coma B18.2 [facility] [id number] [place] [address] 75828- 6538 Sep, 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 [facility] [id number] [place] [address] 83689- 4500 Sep, Arthritis M19.90 [facility] [id number] [place] [address] 33782- 7489 Sep, [facility] [id number] [place] [address] 24692- 9511 Sep, Unspecified episodic mood disorder F39 [facility] [id number] [place] [address] 42122- 2656 Aug, [facility] [address] [id number] Aug, [facility] [address], [place] [address] Aug, Arthritis M19.90 [facility] [address], [place] [address] Aug, [facility] [id number] [address] Aug, Obesity (BMI 30.0-34.9) E66.9 ; Unspecified episodic mood disorder F39 and Hypertension I10 [facility] [address], [place] [address] 65[address] Aug, Unspecified episodic mood disorder F39 [facility] [id number] [place] [address] 93935- 4202 Aug, [facility] [id number] [place] [address] 72849- 0572 Jul, Unspecified episodic mood disorder F39 [facility] [address], [place] [address] 9269 Jul, [facility] [address] [place] [address] 06570- 3916 Jul, Arthritis M19.90 [facility] [address], [place] [address] 5006 Jul, Left hip pain M25.552 ; Hypertension I10 ; Other obesity due to excess calories E66.09 and Body mass index (BMI) of 34.0-34.9 in adult Z68.34 [facility] [address], [place] [address] 18[address] Jul, Unspecified episodic mood disorder F39 [facility] [address], [place] [address] 7260 June, Gastroesophageal reflux disease, esophagitis presence not specified K21.9 [facility] [id number] [place] [address] 99854- 0006 June, [facility] [address], [place] [address] 2859 June, [facility] [id number] [place] [address] 09100- 2135 June, Arthritis M19.90 [facility] [id number] [place] [address] 13689- 0550 June, [facility] [id number] [place] [address] 57074- 9085 June, [facility] [id number] [place] [address] 53484- 4654 June, Unspecified episodic mood disorder F39 [facility] [id number] [place] [address] 42506- 8520 May, Unspecified episodic mood disorder F39 [facility] [id number] [place] [address] 41890- 5044 May, [facility] [id number] [place] [address] 85639- 7918 May, Arthritis M19.90 [facility] [id number] [place] [address] 20029 -9563 May, Dysuria R30.0 ; Abscess L02.91 and Acute cystitis without hematuria N30.00 [facility] [address] [place] [address] 83311- 0137 May, Other disorder of impulse control 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 ; Unspecified episodic mood disorder F39 ; Combined drug dependence excluding opioids, 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 ; Anxiety F41.9 and Other psychoactive substance dependence, 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 [facility] [address] [place] [address] 38100- 3151 May, [facility] [address] [place] [address] 41319- 4223 May, 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 ; Unspecified episodic mood disorder F39 ; Combined drug dependence excluding opioids, 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 ; Other psychoactive substance dependence, 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 and Anxiety F41.9 [facility] [address] 51743- 5751 May, Other chronic pain G89.29 ; Left hip pain M25.552 ; Hypertension I10 ; 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, 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 and Unspecified episodic mood disorder F39 [facility] [id number] [place] [address] 41811- 8267 Apr, [facility] [address] 91238 -1125 Apr, Neck pain M54.2 ; Left hip pain M25.552 and Fall, initial encounter W19.XXXA [facility] [address] 31961- 8078 Apr, Unspecified episodic mood disorder F39 ; Combined drug dependence excluding opioids, 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 ; Anxiety F41.9 ; Other psychoactive substance dependence, 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 and Other disorder of impulse control F63.89 [facility] [address] 28299- 5858 Apr, [facility] [address] 87000- 6666 Apr, Arthritis M19.90 and Unspecified episodic mood disorder F39 [facility] [id number] [place] [address] 93014- 3053 Apr, Unspecified episodic mood disorder F39 [facility] [address] 56361- 6532 Apr, [facility] [address] 22420- 9177 Apr, [facility] [address] 50243- 6614 Apr, Unspecified episodic mood disorder F39 ; Combined drug dependence excluding opioids, 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 ; Anxiety F41.9 ; Other psychoactive substance dependence, 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 and Other disorder of impulse control F63.89 [facility] [id number] [place] [address] 12832- 2901 Mar, Unspecified episodic mood disorder F39 [facility] [id number] [place] [address] 92013- 1356 Mar, Gastroesophageal reflux disease, esophagitis presence not specified K21.9 [facility] [id number] [place] [address] 23332- 8186 Mar, Arthritis M19.90 and Unspecified episodic mood disorder F39 [facility] [id number] [place] [address] 50711- 4697 Feb, [facility] [id number] [place] [address] 51980- 1660 Feb, [facility] [id number] [place] [address] 96701- 7767 Feb, [facility] [id number] [place] [address] 63483- 6246 Feb, Arthritis M19.90 [facility] [id number] [place] [address] 00232 2540 Feb, Non-pressure chronic ulcer of right calf, 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 ; Unspecified episodic mood disorder F39 and Left hip pain M25.552 [facility] [id number] [place] [address] 46930 2546 Feb, [facility] [id number] [place] [address] 74487 2546 Feb, [facility] [id number] [place] [address] 89431- 2546 Jan, Arthritis M19.90 [facility] [address] 58023- 7270 Jan, Left hip pain M25.552 and Non-pressure chronic ulcer of right calf, 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 [facility] [id number] [place] [address] 61755- 6673 Jan, Chronic hepatitis C without hepatic coma B18.2 [facility] [address] 64890- 8386 Jan, Encounter for immunization Z23 ; Venous insufficiency ( chronic) (peripheral) I87.2 ; Non-pressure chronic ulcer of unspecified calf limited to breakdown of skin L97.201 and Gastroesophageal reflux disease, esophagitis presence not specified K21.9 [facility] [address] 90485- 5027 Jan, [facility] [address] 42968- 9279 Jan, Chronic hepatitis C without hepatic coma B18.2 and Encounter for immunization Z23 [facility] [address] 42071- 3736 Jan, Arthritis M19.90 [facility] [address] 42480- 2711 Jan, [facility] [id number] [place] [address] 96402- 0208 Dec, [facility] [id number] [place] [address] 90725- 5903 Dec, Unspecified episodic mood disorder F39 [facility] [id number] [place] [address] 07041- 1652 Dec, Arthritis M19.90 [facility] [id number] [place] [address] 26447- 8656 Dec, Arthritis M19.90 [facility] [id number] [place] [address] 18107- 2210 Nov, [facility] [address] [place] [address]- 2321 Nov, [facility] [id number] [place] [address] 97633- 5843 Nov, Other psychoactive substance dependence, 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 ; 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, 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 and Chronic hepatitis C without hepatic coma B18.2 [facility] [id number] [place] [address] 24105- 1527 Nov, Arthritis M19.90 [facility] [id number] [place] [address] 24503 -1466 Oct, Partial thickness burn of abdomen, initial encounter T21.22XA [facility] [id number] [place] [address] 75318- 1233 Oct, [facility] [id number] [place] [address] 38362- 3259 Sep, Arthritis M19.90 [facility] [id number] [place] [address] 26607- 5697 Sep, [facility] [id number] [place] [address] 14797- 2680 Sep, [facility] [id number] [place] [address] 22976- 2379 Sep, Unspecified episodic mood disorder F39 ; Chronic hepatitis C without hepatic coma B18.2 and Left hip pain M25.552 [facility] [id number] [place] [address] 43176- 8596 Sep, Arthritis M19.90 and Left hip pain M25.552 [facility] [id number] [place] [address] 11015- 7170 Aug, [facility] [id number] [place] [address] 59349- 4950 Aug, [facility] [id number] [place] [address] 88107- 8299 Aug, Chronic hepatitis C without hepatic coma B18.2 [facility] [id number] [place] [address] 63862- 6914 Aug, [facility] [id number] [place] [address] 22852- 7726 Aug, Chronic hepatitis C without hepatic coma B18.2 [facility] [id number] [place] [address] 80637- 5910 Aug, 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, 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 [facility] [id number] [place] [address] 17520- 8256 Aug, [facility] [id number] [place] [address] 56345- 1484 Aug, Chronic hepatitis C without hepatic coma B18.2 and Hypertension I10 [facility] [id number] [place] [address] 87256- 8787 Jul, [facility] [id number] [place] [address] 51579- 4140 June, [facility] [id number] [place] [address] 13680- 7544 Apr, Fibromyalgia M79.7 ; Left hip pain M25.552 and Decubitus ulcer of sacral region, stage 1 L89.151 [facility] [id number] [place] [address] 13597- 7891 Apr, [facility] [id number] [place] [address] 90071- 5345 Apr, [facility] [id number] [place] [address] 32113- 3710 Feb, [facility] [id number] [place] [address] 65065- 0113 Dec, Anxiety F41.9 ; Combined drug dependence excluding opioids, 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 and Unspecified episodic mood disorder F39 [facility] [address], [place] [address]- 3725 Dec, [facility] [id number] [place] [address] 77104- 7865 Nov, [facility] [id number] [place] [address] 60069- 9425 Nov, [facility] [id number] [place] [address] 75795- 0358 Nov, Other disorder of impulse control F63.89 and Anxiety F41.9 [facility] [id number] [place] [address] 81148- 2310 Oct, [facility] [id number] [place] [address] 35559 -2464 14 Oct, 2015 Open wound of left thigh, initial encounter S71.102A [facility] [id number] [place] [address] 55780- 0470 Oct, [facility] [id number] [place] [address] 79479- 6192 Sep, Unspecified episodic mood disorder F39 ; Other disorder of impulse control 312.39 ; Combined drug dependence excluding opioids, 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 and Anxiety F41.9 [facility] [address], [place] [address]- 6503 Sep, Other disorder of impulse control 312.39 ; Combined drug dependence excluding opioids, 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 ; Anxiety F41.9 and Unspecified episodic mood disorder F39 [facility] [id number] [place] [address] 52890- 1660 Sep, Other chronic pain G89.29 [facility] [id number] [place] [address] 99287- 3256 Sep, [facility] [id number] [place] [address] 37044- 2120 Sep, [facility] [id number], [place] [address]- 8058 Aug, [facility] [address], [place] [address]- 0828 Aug, [facility] [address], [place] [address]- 2769 Aug, [facility] [address] [place] [address] 90396- 2107 Jul, [facility] [id number] [place] [address] 03115- 4843 Jul, [facility] [id number] [place] [address] 87899- 6400 Jul, [facility] [id number] [place] [address] 23539- 9715 Jul, Arthritis M19.90 ; Chronic hepatitis C without hepatic coma B18.2 and Left hip pain M25.552 [facility] [id number] [place] [address] 15296- 6750 Jul, Left knee pain M25.562 [facility] [id number] [place] [address] 43548- 2812 Jul, Combined drug dependence excluding opioids, 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 ; Anxiety F41.9 ; Other disorder of impulse control 312.39 and Unspecified episodic mood disorder F39 [facility] [address], [place] [address]- 6708 Jul, Left knee pain M25.562 [facility] [address], [place] [address]- 8031 Jul, Left knee pain M25.562 and Left hip pain M25.552 [facility] [address], [place] [address]- 3902 Jul, [facility] [id number] [place] [address] 64455- 3059 June, [facility] [id number] [place] [address] 56399- 5096 June, Combinations of drug dependence excluding opioid type drug, unspecified abuse 304.80 ; Other disorder of impulse control 312.39 ; Unspecified episodic mood disorder F39 and Anxiety F41.9 [facility] [address] [place] [address] 92428- 8410 June, Other fatigue R53.83 ; Headache R51 and Left knee pain M25.562 [facility] [id number] [place] [address] 24967- 5704 June, Unspecified episodic mood disorder F39 ; Combinations of drug dependence excluding opioid type drug, unspecified abuse 304.80 ; Other disorder of impulse control 312.39 and Anxiety F41.9 [place] [facility] [id number] [place] [address] 77091- 7206 June, Anxiety F41.9 [place] [id number] [place] [address] 54715- 6095 June, Pain in left knee M25.562 [facility] [id number] [place] [address] 45484- 8322 June, Anxiety F41.9 and Combinations of drug dependence excluding opioid type drug, unspecified abuse 304.80 [place] [address], [place] [address]- 0500 June, Unspecified episodic mood disorder 296.90 ; Combinations of drug dependence excluding opioid type drug, unspecified abuse 304.80 and Other disorder of impulse control 312.39 [facility] [id number] [place] [address] 28944- 7336 June, Anxiety F41.9 and Unspecified episodic mood disorder 296.90 [facility] [id number] [place] [address] 37332- 0441 May, Arthritis M19.90 [facility] [id number] [place] [address] 08941- 9593 May, Arthritis M19.90 [facility] [address], [place] [address]- 8333 May, Anxiety F41.9 ; Combinations of drug dependence excluding opioid type drug, unspecified abuse 304.80 and Other disorder of impulse control 312.39 [facility] [address], [place] [address]- 0550 May, Left knee pain M25.562 [facility] [id number] [place] [address] 42522- 2131 May, Arthritis M19.90 [facility] [id number] [place] [address] 80468- 1940 May, [facility] [id number] [place] [address] 68268- 1432 May, Anxiety F41.9 ; Unspecified episodic mood disorder 296.90 ; Combinations of drug dependence excluding opioid type drug, unspecified abuse 304.80 and Other disorder of impulse control 312.39 [facility] [address], [place] [address]- 0151 May, Left knee pain M25.562 [facility] [id number] [place] [address] 49053- 1471 May, Left knee pain M25.562 ; Combinations of drug dependence excluding opioid type drug, unspecified abuse 304.80 ; Other disorder of impulse control 312.39 ; Fibromyalgia M79.7 ; Hypertension I10 ; Unspecified episodic mood disorder 296.90 and Left hip pain M25.552 [facility] [address], [place] [address]- 7646 May, Unspecified episodic mood disorder 296.90 ; Other disorder of impulse control 312.39 ; Combinations of drug dependence excluding opioid type drug, unspecified abuse 304.80 and Anxiety F41.9 [facility] [address], [place] [address]- 5262 May, Left knee pain M25.562 ; Combinations of drug dependence excluding opioid type drug, unspecified abuse 304.80 ; Other disorder of impulse control 312.39 ; Fibromyalgia M79.7 ; Hypertension I10 ; Unspecified episodic mood disorder 296.90 and Left hip pain M25.552 [facility] [address], [place] [address]- 7102 May, Anxiety F41.9 ; Unspecified episodic mood disorder 296.90 ; Other disorder of impulse control 312.39 and Combinations of drug dependence excluding opioid type drug, unspecified abuse 304.80 [facility] [address] [place] [address] 05412- 3616 30 Apr, 2015 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 and 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90 ; Combinations of drug dependence excluding opioid type drug, unspecified abuse 304.80 and Other disorder of impulse control 312.39 [facility] [id number] [place] [address] 42302- 4640 17 Apr, 2015 Arthritis M19.90 [facility] [address], [place] [address]- 9830 Apr, [facility] [id number] [place] [address] 70984- 9585 Apr, [facility] [id number] [place] [address] 27591- 5926 14 Apr, 2015 Unspecified episodic mood disorder 296.90 ; Combinations of drug dependence excluding opioid type drug, unspecified abuse 304.80 ; Other disorder of impulse control 312.39 and Anxiety F41.9 [facility] [facility] [id number] [place] [address] Apr, Left knee pain M25.562 [facility] [id number] [place] [address] 55965- 4953 Apr, [facility] [address] [address]269- 6879 Mar, Unspecified episodic mood disorder 296.90 ; Anxiety F41.9 ; Other disorder of impulse control 312.39 and Combinations of drug dependence excluding opioid type drug, unspecified abuse 304.80 [facility] [id number] [place] [address] 77541- 9376 Mar, Hyperpigmentation L81.9 [facility] [id number] [place] [address] 49813- 1235 Mar, Arthritis M19.90 and Anxiety F41.9 [facility] [id number] [place] [address] 74067- 6303 Mar, Unspecified episodic mood disorder F39 ; Combined drug dependence excluding opioids, 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 ; Other disorder of impulse control F63.89 and Anxiety F41.9 [facility] [id number] [place] [address] 02724- 0970 12 Mar, 2015 Well woman exam Z01.419 ; Other fatigue R53.83 ; Hot flashes N95.1 ; Depression, unspecified depression type F32.9 and Body mass index (BMI) of 23.0-23.9 in adult Z68.23 [facility] [id number] [place] [address] 44291- 6317 11 Mar, 2015 Unspecified episodic mood disorder 296.90 ; Other disorder of impulse control 312.39 and Anxiety F41.9 [facility] [address] 58417- 8776 Mar, Well woman exam Z01.419 ; Encounter [...] of breast Z12.39 and Limited mobility Z74.[address] [address]10- 9634 10 Mar, [address] [address]- 4591 Mar, [address] 24337- 5024 Mar, [address] 60153- 3275 Mar, Other specified complication of internal orthopedic prosthetic devices, implants and grafts, initial encounter T84.89XA ; Fibromyalgia M79.7 ; Hypertension I10 ; Anemia D64.9 ; Insomnia G47.00 ; Anxiety F41.9 ; Arthritis M19.90 and Migraine G43.909 [facility] [address] [address]01- 3799 Mar, [address] 70981- 6712 Feb, [address] 17774- 2659 Feb, Arthritis M19.90 and Anxiety F41.[address] 48661- 8261 Feb, [facility] [address] [facility] [id number] [place] [address]- 6942 Feb, [facility] [address] 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 and Fibromyalgia M79.7 [facility] [address], [place] [address]- 0794 Feb, [facility] [address], [place] [address]- 4145 Jan, [facility] [address], [place] [address]- 6112 Jan, [facility] [address], [place] [address]- 2559 Jan, [facility] [address], [place] [address]- 2301 24 Jan, 2015 [facility] [address] [place] [address]- 4925 16 Jan, 2015 [facility] [id number] 3964 08 Jan, 2015 [facility] [address], [place] [address]- 7689 Jan, [facility] [address], [place] [address]- 7006 Jan, [facility] [id number] [place] [address] 19490- 9504 Dec, [facility] [id number] [place] [address] 00793- 6080 Dec, Left knee pain M25.562 [facility] [id number] [place] [address] 821394- 7250 Dec, Left knee pain M25.562 [facility] [id number] [place] [address] 05361- 5195 Dec, Fibromyalgia M79.7 ; Hypertension I10 and Arthritis M19.90 [facility] [id number] [place] [address] 18141- 2908 Dec, [facility] [id number] [place] [address] 91965- 2063 Dec, [facility] [id number] [place] [address] 23752- 5378 Dec, [facility] [id number] [place] [address] 32730- 9841 Dec, [facility] [address], [place] [address]- 0456 Nov, [facility] [id number] [place] [address] 74216- 7012 Nov, [facility] [id number] [place] [address] 89197- 4162 Nov, [facility] [id number] [place] [address] 43782- 4515 Nov, Hypertension I10 [facility] [address], [place] [address]- 4096 Oct, [facility] [id number] [address]- 8727 17 Oct, 2014 [facility] [address] [id number], [place] [address]- 2384 Oct, [facility] [place] [facility] [address] [id number], [place] [address]- 6798 Oct, [facility] [place] [facility] [address] [id number], [place] [address]- 4008 Oct, [facility] [place] [facility] [address] [id number], [place] [address]- 1637 Sep, [facility] [place] [facility] [address] [id number], [place] [address]- 2813 Sep, [facility] [place] [facility] [address] [facility] [id number], [place] [address]- 4003 Sep, Hip pain associated with recalled total hip arthroplasty hardware 996.77 [facility] [place] [facility] [address] [id number], [place] [address]- 9362 Sep, [facility] [place] [facility] [address] [facility] [id number], [place] [address]- 1616 Sep, [facility] [address] [facility] [id number], [place] [address]- 0444 Sep, [facility] [place] [facility] [address] [facility] [id number], [place] [address]- 3560 Aug, [facility] [place] [facility] [address] [facility] [id number], [place] [address]- 7185 Jul, [facility] [place] [facility] [address] [facility] [id number], [place] [address]- 7699 June, [facility] [place] [facility] [address] [facility] [id number], [place] [address]- 5690 June, [facility] [place] [facility] [address] [facility] [id number], [place] [address]- 9673 June, [facility] [place] [facility] [address] [id number], [place] [address]- 1102 June, [facility] [place] [facility] [address] [id number] [place] [address]- 1168 June, [facility] [place] [facility] [address] [id number] [place] [address]- 7718 June, [facility] [place] [facility] [address] [id number] [place] [address]- 7695 May, [facility] [place] [facility] [address] [id number] [place] [address]- 6690 May, [facility] [place] [facility] [address] [id number] [place] [address]- 3095 May, [facility] [place] [facility] [address] [id number] [place] [address]- 2967 Apr, [facility] [place] [facility] [address] [id number] [place] [address]- 1911 Apr, [facility] [place] [facility] [address] [id number] [place] [address]- 7063 Apr, [facility] [place] [facility] [address] [id number] [place] [address]- 0929 Apr, [facility] [place] [facility] [address] [facility] [id number] [place] [address]- 5239 Apr, [facility] [place] [facility] [address] [id number] [place] [address]- 3147 Apr, [facility] [place] [facility] [address] [id number] [place] [address]- 0758 Apr, [facility] [place] [facility] [address] [id number] [place] [address]- 1275 Apr, [facility] [place] [facility] [address] [id number] [place] [address]- 6020 10 Apr, 2014 [facility] [place] [facility] [address] [facility] [id number] [place] [address]- 4877 05 Apr, 2014 [facility] [place] [facility] [address] [id number] [place] [address]- 6687 Apr, [facility] [place] [facility] [address] [id number] [place] [address]- 7323 Mar, 2014 [facility] [place] [facility] [address] [id number] [place] [address]- 6276 Mar, 2014 [facility] [place] [facility] [address] [id number] [place] [address]- 7064 Mar, 2014 [facility] [place] [facility] [address] [id number] [place] [address]- 3095 Mar, 2014 [facility] [place] [facility] [address] [id number] [place] [address]- 9942 Mar, [facility] [place] [facility] [address] [id number] [place] [address]- 2818 Mar, [facility] [place] [facility] [address] [id number] [place] [address]- 6438 Feb, [facility] [place] [facility] [address] [id number] [place] [address]- 1260 Feb, [facility] [place] [facility] [address] [id number] [place] [address]- 5280 Feb, [facility] [place] [facility] [address] [id number] [place] [address]- 0996 Feb, [facility] [place] [facility] [address] [id number] [place] [address]- 5853 Jan, [facility] [place] [facility] [address] [id number] [place] [address]- 2601 Jan, [facility] [place] [facility] [address] [id number] [place] [address]- 9733 Jan, [facility] [place] [facility] [address] [id number] [place] 0066 Jan, [facility] [place] [facility] [address] [id number], [place] [address]- 5983 Dec, [facility] [place] [facility] [address] [id number] [place] [address]- 7461 Dec, [facility] [place] [facility] [address] [id number] [place] [address]- 4965 Dec, [facility] [place] [facility] [address] [id number] [place] [address]- 9879 Dec, [facility] [place] [facility] [address] [id number] [place] [address]- 4422 Dec, [facility] [place] [facility] [address] [id number] [place] [address]- 4587 Dec, [facility] [place] [facility] [address] [id number] [place] [address]- 6064 Dec, [facility] [place] [facility] [address] [id number] [place] [address]- 3729 Dec, [facility] [place] [facility] [address] [id number] [place] [address]- 4487 Dec, [facility] [place] [facility] [address] [id number] [place] [address]- 9348 Dec, [facility] [place] [facility] [address] [id number] [place] [address]- 9188 Dec, [facility] [place] [facility] [address] [id number], [place] [address]- 9244 31 Nov, 2013 [facility] [place] [facility] [address] [id number], [place] [address]- 9189 Nov, [facility] [place] [facility] [address] [id number] [place] [address]- 2878 Nov, [facility] [place] [facility] [address] [id number] [place] [address]- 2294 Nov, [facility] [place] [facility] [address] [id number] [place] [address]- 8433 Nov, [facility] [place] [facility] [address] [id number] [place] [address]- 9770 15 Nov, 2013 [facility] [place] [facility] [address] [id number] [place] [address]- 3028 15 Nov, 2013 [facility] [place] [facility] [address] [id number] [place] [address]- 0587 15 Nov, 2013 [facility] [place] [facility] [address] [id number] [place] [address]- 0136 15 Nov, 2013 [facility] [place] [facility] [address] [id number] [place] [address]- 2336 14 Nov, 2013 [facility] [place] [facility] [address] [id number] [place] [address]- 2579 14 Nov, 2013 [facility] [place] [facility] [address] [id number] [place] [address]- 7377 14 Nov, 2013 [facility] [place] [facility] [address] [id number] [place] [address]- 5049 14 Nov, 2013 [facility] [place] [facility] [address] [id number] [place] [address]- 1629 13 Nov, 2013 [facility] [place] [facility] [address] [id number] [place] [address]- 8784 13 Nov, 2013 [facility] [place] [facility] [address] [id number] [place] [address]- 1737 11 Nov, 2013 [facility] [place] [facility] [address] [id number] [place] [address]- 9782 11 Nov, 2013 [facility] [place] [facility] [address] [id number] [place] [address]- 1844 07 Nov, 2013 [facility] [place] [facility] [address] [id number] [place] [address]- 0675 07 Nov, 2013 [facility] [place] [facility] [address] [id number] [place] [address]- 7809 07 Nov, 2013 [facility] [place] [facility] [address] [id number] [place] [address]- 9997 Nov, [facility] [place] [facility] [address] [id number] [place] [address]- 2134 30 Oct, 2013 [facility] [place] [facility] [address] [id number] [place] [address]- 9556 30 Oct, 2013 [facility] [place] [facility] [address] [id number] [place] [address]- 7931 26 Oct, 2013 [facility] [place] [facility] [address] [id number] [place] [address]- 3450 26 Oct, 2013 [facility] [place] [facility] [address] [id number] [place] [address]- 2415 22 Oct, 2013 [facility] [place] [facility] [address] [id number] [place] [address]- 7700 22 Oct, 2013 [facility] [place] [facility] [address] [id number] [place] [address]- 9174 18 Oct, 2013 [facility] [place] [facility] [address] [id number] [place] [address]- 5446 18 Oct, 2013 [facility] [place] [facility] [address] [id number] [place] [address]- 7030 18 Oct, 2013 [facility] [place] [facility] [address] [id number] [place] [address]- 7907 18 Oct, 2013 [facility] [place] [facility] [address] [id number] [place] [address]- 4132 12 Oct, 2013 [facility] [place] [facility] [address] [id number] [place] [address]- 2639 12 Oct, 2013 [facility] [place] [facility] [address] [id number] [place] [address]- 2543 Oct, 2013 [facility] [place] [facility] [address] [id number] [place] [address]- 2390 Oct, 2013 [facility] [place] [facility] [address] [id number] [place] [address]- 4644 Sep, [facility] [place] [facility] [address] [id number] [place] [address]- 0849 Sep, [facility] [place] [facility] [address] [id number] [place] [address]- 4218 Sep, [facility] [place] [facility] [address] [id number] [place] [address]- 4215 Sep, [facility] [place] [facility] [address] [id number] [place] [address]- 4027 Sep, [facility] [place] [facility] [address] [id number] [place] [address]- 4060 Sep, [facility] [place] [facility] [address] [id number] [place] [address]- 7537 Sep, [facility] [place] [facility] [address] [id number] [place] [address]- 6563 Sep, [facility] [place] [facility] [address] [id number] [place] [address]- 9217 Sep, [facility] [place] [facility] [address] [id number] [place] [address]- 8260 Sep, [facility] [place] [facility] [address] [id number] [place] [address]- 1801 Sep, [facility] [place] [facility] [address] [id number] [place] [address]- 6002 Sep, [facility] [place] [facility] [address] [id number] [place] [address]- 1401 Sep, [facility] [place] [facility] [address] [id number] [place] [address]- 4023 Sep, [facility] [place] [facility] [address] [id number] [place] [address]- 2186 Sep, [facility] [place] [facility] [address] [id number] [place] [address]- 3226 Sep, [facility] [place] [facility] [address] [id number] [place] [address]- 5401 Sep, [facility] [place] [facility] [address] [id number] [place] [address]- 9209 Sep, [facility] [place] [facility] [address] [id number] [place] [address]- 1012 Aug, [facility] [place] [facility] [address] [id number] [place] [address]- 4756 Aug, [facility] [place] [facility] [address] [id number] [place] [address]- 6793 Aug, [facility] [place] [facility] [address] [id number] [place] [address]- 0187 Aug, [facility] [place] [facility] [address] [id number] [place] [address]- 8881 Aug, [facility] [place] [facility] [address] [id number] [place] [address]- 7551 Aug, [facility] [place] [facility] [address] [id number] [place] [address]- 7185 Jul, [facility] [place] [facility] [address] [id number] [place] [address]- 4154 Jul, [facility] [place] [facility] [address] [id number] [place] [address]- 4947 Jul, [facility] [place] [facility] [address] [id number] [place] [address]- 9162 Jul, [facility] [place] [facility] [address] [id number] [place] [address]- 4176 June, [facility] [place] [facility] [address] [id number] [place] [address]- 1913 June, [facility] [place] [facility] [address] [id number] [place] [address]- 5506 June, [facility] [place] [facility] [address] [id number] [place] 7071 June, [facility] [place] [facility] [address] [id number] [place] [address]- 8919 June, [facility] [place] [facility] [address] [id number] [place] [address]- 6419 June, [facility] [place] [facility] [address] [id number] [place] [address]- 5333 June, [facility] [place] [facility] [address] [id number] [place] [address]- 1164 May, [facility] [place] [facility] [address] [id number] [place] [address]- 3046 May, [facility] [place] [facility] [address] [id number] [place] [address]- 6270 May, [facility] [place] [facility] [address] [id number] [place] [address]- 9964 May, [facility] [place] [facility] [address] [id number] [place] [address]- 7412 May, [facility] [place] [facility] [address] [id number] [place] [address]- 1124 May, [facility] [place] [facility] [address] [id number] [place] [address]- 9325 31 Apr, 2013 [facility] [place] [facility] [address] [id number] [place] [address]- 1971 31 Apr, 2013 [facility] [place] [facility] [address] [id number] [place] [address]- 6707 28 Apr, 2013 [facility] [place] [facility] [address] [id number] [place] [address]- 0012 28 Apr, 2013 [facility] [place] [facility] [address] [id number] [place] [address] 14 Apr, 2013 [facility] [place] [facility] [address] [id number] [place] [address] 14 Apr, 2013 [facility] [place] [facility] [address] [id number] [place] [address] 12 Apr, 2013 [facility] [place] [facility] [address] [id number] [place] [address] Apr, [facility] [place] [facility] [address] [id number] [place] [address] Apr, [facility] [place] [facility] [address] [id number] [place] [address] Apr, [facility] [place] [facility] [address] [id number] [place] [address] Apr, [facility] [place] [facility] [address] [id number] [place] [address] Apr, [facility] [place] [facility] [address] [id number] [place] [address] Apr, [facility] [place] [facility] [address] [id number] [place] [address] Apr, [facility] [place] [facility] [address] [id number] [place] [address] Mar, [facility] [place] [facility] [address] [id number] [place] [address] 1994 Mar, [facility] [place] [facility] [address] [id number] [place] [address] Mar, [facility] [place] [facility] [address] [id number] [place] [address] Feb, [facility] [place] [facility] [address] [id number] [place] [address] Feb, [facility] [place] [facility] [address] [id number] [place] [address] Feb, [facility] [place] [facility] [address] [id number] [place] [address] Feb, [facility] [place] [facility] [address] [id number] [place] [address] Feb, [facility] [place] [facility] [address] [id number] [place] [address] 47[address] Feb, [facility] [address] [id number] [place] [address] Feb, [facility] [place] [facility] [address] [id number] [place] [address] Feb, [facility] [place] [facility] [address] [id number] [place] [address] Feb, [facility] [place] [facility] [address] [id number] [place] [address] 7914 Feb, [facility] [address] [id number] [place] [address]- [address] Jan, [facility] [place] [facility] [address] [id number] [place] [address]69 Jan, [facility] [place] [facility] [address] [id number] [place] [address] Jan, [facility] [address] [id number] [place] [address] Jan, [facility] [place] [facility] [address] [id number] [place] [address] 6[address] Jan, [facility] [place] [facility] [address] [id number] [place] [address] 77[address] Jan, [facility] [place] [facility] [address] [id number] [place] [address] Jan, [facility] [place] [facility] [address] [id number], [place] [address] Jan, [facility] [place] [facility] [address] [id number] [place] [address] Jan, [facility] [place] [facility] [address] [id number] [place] [address]- [address] Jan, [facility] [place] [facility] [address] [id number], [place] [address] 17 Jan, 2013 [facility] [place] [facility] [address] [id number], [place] [address] 17 Jan, 2013 [facility] [address] [id number] [place] [address] 16 Jan, 2013 [facility] [address] [facility] [id number] [place] [address] Jan, [facility] [address] [facility] [id number] [place] [address] Jan, [facility] [address] [facility] [id number] [place] [address] 6[address] Jan, [facility] [address] [facility] [id number] [place] [address] Jan, [facility] [address] [facility] [id number] [place] [address]- [address] Jan, [facility] [address] [id number] [place] [address] Jan, [facility] [address] [facility] [id number] [place] [address]- [address] Jan, [facility] [address] [id number] [place] [address] Jan, [facility] [address] [id number] [place] [address] Dec, [facility] [address] [facility] [id number], [place] [address] Dec, [facility] [place] [facility] [address] [facility] [id number], [place] [address] Dec, [facility] [place] [facility] [address] [id number], [place] [address] Dec, [facility] [place] [facility] [address] [facility] [id number] [place] [address]- 5878 Dec, [facility] [place] [facility] [address] [id number], [place] [address] Dec, [facility] [place] [facility] [address] [id number] [place] [address]- 36[address] Dec, [facility] [place] [facility] [address] [id number] [place] [address] Dec, [facility] [place] [facility] [address] [id number] [place] [address]- [address]279 Dec, [facility] [place] [facility] [address] [id number] [place] [address]- 8550 Dec, [facility] [place] [facility] [address] [id number] [place] [address]- 9528 Nov, [facility] [place] [facility] [address] [id number] [place] [address]- 1169 Nov, [facility] [place] [facility] [address] [id number] [place] [address] Nov, [facility] [place] [facility] [address] [id number] [place] [address] Nov, [facility] [place] [facility] [address] [id number] [place] [address] 3[address] Nov, [facility] [place] [facility] [address] [id number] [place] [address]651 Nov, [facility] [place] [facility] [address] [id number] [place] [address] 04[address] Nov, [facility] [place] [facility] [address] [id number] [place] [address] 5147 Nov, [facility] [place] [facility] [address] [id number] [place] [address] 2401 10 Nov, 2012 [facility] [place] [facility] [address] [id number] [place] [address] 03 Nov, 2012 [facility] [place] [facility] [address] [id number] [place] [address] Oct, [facility] [place] [facility] [address] [id number] [place] [address] 3511 Oct, [facility] [address] [id number] [place] [address] 1636 Oct, [facility] [place] [facility] [address] [id number] [place] [address] 0940 Oct, [facility] [place] [facility] [address] [id number] [place] [address] 9123 Oct, [facility] [place] [facility] [address] [id number] [place] [address] 4[address] Sep, [facility] [place] [facility] [address] [id number] [place] [address]- 3759 Sep, [facility] [place] [facility] [address] [id number] [place] [address] 2548 Aug, [facility] [place] [facility] [address] [id number] [place] [address]- 9084 Aug, [facility] [place] [facility] [address] [id number] [place] [address] 8112 Aug, [facility] [place] [facility] [address] [id number] [place] [address] 3152 Aug, [facility] [place] [facility] [address] [id number] [place] [address] 4089 Aug, [facility] [place] [facility] [address] [id number], [place] [address] Aug, [facility] [place] [facility] [address] [id number], [place] [address] Aug, [facility] [place] [facility] [address] [id number] [place] [address] 3362 Jul, [facility] [place] [facility] [address] [id number] [place] [address]- 9568 Jul, [facility] [place] [facility] [address] [id number] [place] [address] 4799 June, [facility] [place] [facility] [address] [id number] [place] [address] 2570 June, [facility] [address] [id number] [place] [address] 9546 June, [facility] [address] [id number] [place] [address] June, [facility] [address] [id number] [place] [address] 0766 June, [facility] [address] [id number] [place] [address] 3784 June, [facility] [address] [id number] [place] [address]- 7791 June, [facility] [address] [id number] [place] [address] 7586 June, [facility] [address] [id number] [place] [address] 5978 June, [facility] [address] [id number] [place] [address]- 6727 June, [facility] [address] [id number] [place] [address] June, [facility] [address] [id number] [place] [address]- 3694 May, [facility] [address] [id number] [place] [address] 6892 May, [facility] [address] [id number] [place] [address]- 0920 May, [facility] [address] [id number] [place] [address]- 1608 May, [facility] [address] [id number] [place] [address] 6307 Apr, [facility] [address] [id number] [place] [address]- 6489 Apr, [facility] [address] [id number] [place] [address]- 6614 Apr, [facility] [address] [id number] [place] [address]- 7216 Mar, [facility] [address] [id number] [place] [address] 8406 Mar, [facility] [address] [id number] [place] [address]- 2891 Feb, [facility] [address] [id number] [place] [address]- 9623 Feb, [facility] [address] [id number] [place] [address]- 4896 Feb, [facility] [address] [id number] [place] [address]- 8527 Feb, [facility] [address] [id number] [place] [address]- 7571 Feb, [facility] [address] [id number] [place] [address]- 0751 Feb, [facility] [address] [id number] [place] [address]- 6423 Feb, [facility] [address] [id number] [place] [address] Jan, [facility] [address] [id number] [place] [address] 9368 31 Jan, 2012 [facility] [address] [id number] [place] [address]- 2983 28 Jan, 2012 [facility] [place] [facility] [address] [id number] [place] [address]- 5246 Jan, [facility] [address] [id number] [place] [address]- 0546 17 Jan, 2012 [facility] [address] [id number], [place] [address]- 04[address] Jan, [facility] [place] [facility] [address] [id number] [place] [address]- 2548 Jan, [facility] [place] [facility] [address] [id number] [place] [address]- 8446 Jan, [facility] [place] [facility] [address] [id number] [place] [address]- 2626 Jan, [facility] [place] [facility] [address] [id number] [place] [address]- 0828 Jan, [facility] [place] [facility] [address] [id number] [place] [address]- 8896 Jan, [facility] [place] [facility] [address] [id number] [place] [address]- 3257 Dec, [facility] [place] [facility] [address] [id number] [place] [address]- 6873 Dec, [facility] [place] [facility] [address] [id number] [place] [address]- 4633 Dec, [facility] [place] [facility] [address] [id number] [place] [address]- 5957 Dec, [facility] [place] [facility] [address] [facility] [id number] [place] [address]- 9177 Nov, [facility] [place] [facility] [address] [id number], [place] [address]- 4084 Nov, [facility] [place] [facility] [address] [id number], [place] [address]- 1337 Nov, [facility] [place] [facility] [address] [id number] [place] [address]- 3201 27 Oct, 2011 [facility] [place] [facility] [address] [id number] [place] [address]- 3626 24 Oct, 2011 [facility] [place] [facility] [address] [id number] [place] [address]- 1572 Oct, [facility] [place] [facility] [address] [id number] [place] [address]- 5204 10 Oct, 2011 [facility] [place] [facility] [address] [id number] [place] [address]- 6306 07 Oct, 2011 [facility] [place] [facility] [address] [id number] [place] [address]- 0596 04 Oct, 2011 [facility] [place] [facility] [address] [id number] [place] [address]- 8406 04 Oct, 2011 [facility] [place] [facility] [address] [id number] [place] [address]- 5349 29 Sep, 2011 [facility] [place] [facility] [address] [id number] [place] [address]- 6086 Sep, [facility] [place] [facility] [address] [id number] [place] [address]- 2963 Sep, [facility] [place] [facility] [address] [id number] [place] [address]- 8775 Sep, [facility] [place] [facility] [address] [id number] [place] [address]- 9196 Sep, [facility] [place] [facility] [address] [id number] [place] [address]- 5046 Aug, [facility] [place] [facility] [address] [id number] [place] [address]- 5217 Aug, [facility] [place] [facility] [address] [id number] [place] [address]- 5996 17 Aug, 2011 [facility] [place] [facility] [address] [id number] [place] [address]- 2546 16 Aug, 2011 [facility] [place] [facility] [address] [id number] [place] [address]- 7356 Aug, [facility] [place] [facility] [address] [id number] [place] [address]- 2546 Aug, [facility] [place] [facility] [address] [id number] [place] [address]- 8815 Aug, [facility] [place] [facility] [address] [id number] [place] [address]- 6146 Jul, [facility] [place] [facility] [address] [id number] [place] [address]- 1965 Jul, [facility] [place] [facility] [address] [id number] [place] [address]- 1357 Jul, [facility] [place] [facility] [address] [id number] [place] [address]- 4143 Jul, [facility] [place] [facility] [address] [id number] [place] [address]- 3779 Jul, [facility] [place] [facility] [address] [id number] [place] [address]- 9352 Jul, [facility] [place] [facility] [address] [id number] [place] [address]- 5764 Jul, [facility] [place] [facility] [address] [id number] [place] [address]- 1949 Jul, [facility] [place] [facility] [address] [id number] [place] [address]- 6173 Jul, [facility] [place] [facility] [address] [id number] [place] [address]- 5841 June, [facility] [place] [facility] [address] [id number] [place] [address]- 6350 June, [facility] [place] [facility] [address] [id number] [place] [address]- 6384 June, [facility] [place] [facility] [address] [id number] [place] [address]- 8131 June, [facility] [place] [facility] [address] [id number] [place] [address]- 3056 June, [facility] [place] [facility] [address] [id number] [place] [address]- 5790 June, [facility] [place] [facility] [address] [id number] [place] [address]- 9711 10 Jun, 2011 [facility] [address] [id number] [place] [address]- 2291 June, [facility] [place] [facility] [address] [id number] [place] [address]- 2742 25 May, 2011 [facility] [place] [facility] [address] [id number] [place] [address]- 1266 23 May, 2011 [facility] [place] [facility] [address] [id number] [place] [address]- 3190 20 May, 2011 [facility] [place] [facility] [address] [id number] [place] [address]- 9368 May, [facility] [place] [facility] [address] [id number] [place] [address]- 1486 May, [facility] [address] [id number] [place] [address]- 4550 16 May, 2011 [facility] [place] [facility] [address] [id number] [place] [address]- 4845 May, [facility] [place] [facility] [address] [id number] [place] [address]- 6266 Apr, [facility] [place] [facility] [address] [id number] [place] [address]- 6219 Apr, [facility] [place] [facility] [address] [id number] [place] [address]- 4824 Apr, [facility] [place] [facility] [address] [id number] [place] [address]- 8203 Apr, [facility] [place] [facility] [address] [id number] [place] [address]- 5926 Apr, [facility] [place] [facility] [address] [id number] [place] [address]- 7275 Apr, [facility] [place] [facility] [address] [id number] [place] [address]- 2143 Apr, [facility] [place] [facility] [address] [id number] [place] [address] 2546 Mar, [facility] [place] [facility] [address] [id number] [place] [address]- 1616 Mar, [facility] [place] [facility] [address] [id number] [place] [address] 2546 14 Mar, 2011 [facility] [place] [facility] [address] [id number] [place] [address] 2546 Mar, [facility] [place] [facility] [address] [id number] [place] [address] 2546 Mar, [facility] [place] [facility] [address] [id number] [place] [address] 2546 Mar, [facility] [place] [facility] [address] [id number] [place] [address]- 0106 Mar, [facility] [place] [facility] [address] [id number] [place] [address]- 7311 Feb, [facility] [place] [facility] [address] [id number] [place] [address]- 0034 Feb, [facility] [place] [facility] [address] [id number] [place] [address]- 5613 Feb, [facility] [place] [facility] [address] [id number] [place] [address] 2546 Feb, [facility] [place] [facility] [address] [id number] [place] [address] 2546 Feb, [facility] [place] [facility] [address] [id number] [place] [address] 2546 Feb, [facility] [place] [facility] [address] [id number] [place] [address] 2546 Feb, [facility] [place] [facility] [address] [id number] [place] [address] 2546 Feb, [facility] [place] [facility] [address] [id number] [place] [address]- 9955 Feb, [facility] [address] [id number] [place] [address]- 5890 Feb, [facility] [place] [facility] [address] [id number] [place] [address]- 0050 Jan, [facility] [place] [facility] [address] [id number] [place] [address]- 8186 Jan, [facility] [place] [facility] [address] [id number] [place] [address]- 2371 Jan, [facility] [place] [facility] [address] [id number] [place] [address]- 0341 Jan, [facility] [place] [facility] [address] [id number] [place] [address]- 4108 Jan, [facility] [address] [id number] [place] [address]- 1493 Jan, [facility] [place] [facility] [address] [id number] [place] [address]- 3638 Jan, [facility] [place] [facility] [address] [id number] [place] [address]- 1041 Jan, [facility] [place] [facility] [address] [id number] [place] [address]- 7484 Jan, [facility] [place] [facility] [address] [id number] [place] [address]- 4435 Jan, [facility] [place] [facility] [address] [id number] [place] [address]- 6817 Jan, [facility] [place] [facility] [address] [id number] [place] [address]- 6049 Dec, [facility] [place] [facility] [address] [id number] [place] [address]- 2900 Dec, [facility] [place] [facility] [address] [id number] [place] [address]- 7354 Dec, [facility] [place] [facility] [address] [id number] [place] [address]- 8732 16 Dec, 2010 [facility] [place] [facility] [address] [id number] [place] 4428 14 Dec, 2010 [facility] [place] [facility] [address] [id number] [place] [address] 2545 09 Dec, 2010 [facility] [place] [facility] [address] [id number] [place] [address]- 8871 08 Dec, 2010 [facility] [place] [facility] [address] [id number] [place] [address]- 2029 07 Dec, 2010 [facility] [place] [facility] [address] [id number] [place] [address]- 5198 Dec, [facility] [place] [facility] [address] [id number] [place] [address]- 5460 Nov, [facility] [place] [facility] [address] [id number] [place] [address]- 7549 Nov, [facility] [place] [facility] [address] [id number] [place] [address]- 7609 27 Nov, 2010 [facility] [place] [facility] [address] [id number] [place] [address]- 3420 24 Nov, 2010 [facility] [place] [facility] [address] [id number] [place] [address]- 1743 24 Nov, 2010 [facility] [place] [facility] [address] [id number] [place] [address]- 0973 13 Nov, 2010 [facility] [place] [facility] [address] [id number] [place] [address]- 6280 11 Aug, 2010 [facility] [place] [facility] [address] [id number] [place] [address]- 2697 14 Feb, 2010 [facility] [place] [facility] [address] [id number] [place] [address]- 6924 14 Jan, 2010 [facility] [place] [facility] [address] [id number] [place] [address]- 1516 Jan, [facility] [address] [id number] [address]99 Jan, [facility] [address] [facility] [id number], [place] [address]- 4793 Jan, [facility] [id number], [place] [address]- 0534 Jan, [facility] [id number] 4137 Dec, [facility] [id number] 3294 Dec, [facility] [id number] [place] [address]- 0928 Dec, [facility] [id number] 8897 Dec, [facility] [id number], [place] [address]- 6695 Nov, [facility] [address] [id number], [place] [address]- 4508 Nov, [facility] [id number], [place] [address]- 4482 Nov, IMMUNIZATIONS No Known Immunizations SOCIAL HISTORY Never Assessed REASON FOR VISIT Start Hep C meds PLAN OF CARE VITAL SIGNS MEDICATIONS Unknown [...]
[2018-01-13] MEDS ORDERED: PREGABALIN 75 MG (LYRICA) CAP ONE (21:48)
--- OUTSIDE RECORDS SUMMARY | 2018-01-13 21:48 | XMS REPORT ---
Author Author JUAN CARLOS SHEFFIELD Organization [facility] Address [address] 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 [id number] [address] Nov, [facility] [address] [facility] [id number] [place] [address] Oct, [facility] [address] [facility] [id number] [address] Oct, [facility] [id number] [place] [address] 78067- 9880 Oct, [facility] [id number] [place] [address] 92544- 6549 Oct, Arthritis M19.90 and Unspecified episodic mood disorder F39 [facility] [id number] [place] [address] 69836- 6327 Sep, Chronic hepatitis C without hepatic coma B18.2 [facility] [id number] [place] [address] 80506- 3818 Sep, Gastroesophageal reflux disease, esophagitis presence not specified K21.9 and Other chronic pain G89.29 [facility] [id number] [place] [address] 66247- 7314 Sep, [facility] [id number] [place] [address] 49436- 5896 Sep, [facility] [id number] [place] [address] 46827- 5485 Sep, Chronic hepatitis C without hepatic coma B18.2 [facility] [id number] [place] [address] 94380- 7110 Sep, 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 [facility] [id number] [place] [address] 82580- 0692 Sep, Arthritis M19.90 [facility] [id number] [place] [address] 30503- 5155 Sep, [facility] [id number] [place] [address] 66833- 8191 Sep, Unspecified episodic mood disorder F39 [facility] [id number] [place] [address] 23224- 4537 Aug, [facility] [id number] [place] [address] [id number] Aug, [facility] [address] [address] 9232 Aug, Arthritis M19.90 [facility] [id number] [place] [address] 02487- 7807 Aug, [facility] [address] [address] 8824 Aug, Obesity (BMI 30.0-34.9) E66.9 ; Unspecified episodic mood disorder F39 and Hypertension I10 [facility] [address] [address] 3740 Aug, Unspecified episodic mood disorder F39 [facility] [id number] [place] [address] 41115- 7127 Aug, [facility] [id number] [place] [address] 95945- 0257 Jul, Unspecified episodic mood disorder F39 [facility] [address] [address] 3003 Jul, [facility] [id number] [place] [address] 98434- 6863 Jul, Arthritis M19.90 [facility] [address] [address] 6153 12 Jul, 2017 Left hip pain M25.552 ; Hypertension I10 ; Other obesity due to excess calories E66.09 and Body mass index (BMI) of 34.0-34.9 in adult Z68.34 [facility] [address] [address] 1408 Jul, Unspecified episodic mood disorder F39 [facility] [address] [address] 5552 June, Gastroesophageal reflux disease, esophagitis presence not specified K21.9 [facility] [address] [address] 3640 June, [facility] [address] [address] June, [facility] [id number] [place] [address] 30998- 8612 June, Arthritis M19.90 [facility] [address] [address] 5959 June, [facility] [id number] [place] [address] 53755- 0536 June, [facility] [id number] [place] [address] 51787- 9918 June, Unspecified episodic mood disorder F39 [facility] [id number] [place] [address] 30670- 2301 May, Unspecified episodic mood disorder F39 [facility] [id number] [place] [address] 34180- 6953 May, [facility] [id number] [place] [address] 18333- 0150 May, Arthritis M19.90 [facility] [id number] [place] [address] 07451 -9749 May, Dysuria R30.0 ; Abscess L02.91 and Acute cystitis without hematuria N30.00 [facility] [address] [address]- 2117 May, Other disorder of impulse control F63.89 ; Unspecified episodic mood disorder F39 ; Combined drug dependence excluding opioids, 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 ; Anxiety F41.9 and Other psychoactive substance dependence, 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 [facility] [address] [place] [address] 07846- 3357 May, [facility] [address] [address]- 9016 May, 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 ; Unspecified episodic mood disorder F39 ; Combined drug dependence excluding opioids, 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 ; Other psychoactive substance dependence, 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 and Anxiety F41.9 [facility] [id number] [place] [address] 26563- 2795 May, Other chronic pain G89.29 ; Left hip pain M25.552 ; Hypertension I10 ; 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, 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 and Unspecified episodic mood disorder F39 [facility] [id number] [place] [address] 80367- 4600 Apr, [facility] [id number] [place] [address] 26144 -0424 Apr, Neck pain M54.2 ; Left hip pain M25.552 and Fall, initial encounter W19.XXXA [facility] [address] 32966- 4574 Apr, Unspecified episodic mood disorder F39 ; Combined drug dependence excluding opioids, 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 ; Anxiety F41.9 ; Other psychoactive substance dependence, 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 and Other disorder of impulse control F63.89 [facility] [address] 26005- 8234 Apr, [facility] [id number] [place] [address] 15867- 6542 Apr, Arthritis M19.90 and Unspecified episodic mood disorder F39 [facility] [id number] [place] [address] 99337- 6013 Apr, Unspecified episodic mood disorder F39 [facility] [id number] [place] [address] 99885- 7083 Apr, [facility] [address] 18070- 5654 Apr, [facility] [id number] [place] [address] 43461- 2479 Apr, Unspecified episodic mood disorder F39 ; Combined drug dependence excluding opioids, 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 ; Anxiety F41.9 ; Other psychoactive substance dependence, 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 and Other disorder of impulse control F63.89 [facility] [id number] [place] [address] 09229- 3746 Mar, Unspecified episodic mood disorder F39 [facility] [id number] [place] [address] 50492- 6216 Mar, Gastroesophageal reflux disease, esophagitis presence not specified K21.9 [facility] [id number] [place] [address] 31090- 7376 Mar, Arthritis M19.90 and Unspecified episodic mood disorder F39 [facility] [address] 46347- 8216 Feb, [facility] [address] 96737- 2323 Feb, [facility] [address] 38289- 0236 Feb, [facility] [id number] [place] [address] 91021- 2350 Feb, Arthritis M19.90 [facility] [id number] [place] [address] 59518- 8854 Feb, Non-pressure chronic ulcer of right calf, 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 ; Unspecified episodic mood disorder F39 and Left hip pain M25.552 [facility] [id number] [place] [address] 96644- 3016 Feb, [facility] [id number] [place] [address] 34187- 1846 Feb, [facility] [id number] [place] [address] 38205- 3786 Jan, Arthritis M19.90 [facility] [id number] [place] [address] 56671- 3236 Jan, Left hip pain M25.552 and Non-pressure chronic ulcer of right calf, 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 [facility] [id number] [place] [address] 75467- 4766 Jan, Chronic hepatitis C without hepatic coma B18.2 [facility] [id number] [place] [address] 01476- 5646 Jan, Encounter for immunization Z23 ; Venous insufficiency ( chronic) (peripheral) I87.2 ; Non-pressure chronic ulcer of unspecified calf limited to breakdown of skin L97.201 and Gastroesophageal reflux disease, esophagitis presence not specified K21.9 [facility] [id number] [place] [address] 80432- 2098 Jan, [facility] [id number] [place] [address] 71301- 4484 Jan, Chronic hepatitis C without hepatic coma B18.2 and Encounter for immunization Z23 [facility] [address] 59221- 0590 Jan, Arthritis M19.90 [facility] [id number] [place] [address] 09843- 4661 Jan, [facility] [id number] [place] [address] 79706- 2874 Dec, [facility] [id number] [place] [address] 04901- 6140 Dec, Unspecified episodic mood disorder F39 [facility] [id number] [place] [address] 16200- 3284 Dec, Arthritis M19.90 [facility] [id number] [place] [address] 17474- 5386 Dec, Arthritis M19.90 [facility] [id number] [place] [address] 05241- 1469 Nov, [facility] [id number] [place] [address] 23054- 4312 Nov, [facility] [address] [address]- 0242 Nov, Other psychoactive substance dependence, 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 ; 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, 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 and Chronic hepatitis C without hepatic coma B18.2 [facility] [id number] [place] [address] 67548- 9615 Nov, Arthritis M19.90 [facility] [id number] [place] [address] 25359 -9316 Oct, Partial thickness burn of abdomen, initial encounter T21.22XA [facility] [id number] [place] [address] 51796- 0743 Oct, [facility] [id number] [place] [address] 68527- 3419 Sep, Arthritis M19.90 [facility] [id number] [place] [address] 33077- 4828 Sep, [facility] [id number] [place] [address] 43983- 2207 Sep, [facility] [id number] [place] [address] 42029- 5998 Sep, Unspecified episodic mood disorder F39 ; Chronic hepatitis C without hepatic coma B18.2 and Left hip pain M25.552 [facility] [id number] [place] [address] 38614- 0021 Sep, Arthritis M19.90 and Left hip pain M25.552 [facility] [id number] [place] [address] 99937- 1201 Aug, [facility] [id number] [place] [address] 02140- 3039 Aug, [facility] [id number] [place] [address] 88622- 1636 Aug, Chronic hepatitis C without hepatic coma B18.2 [facility] [id number] [place] [address] 12846- 8940 Aug, [facility] [id number] [place] [address] 16043- 0790 Aug, Chronic hepatitis C without hepatic coma B18.2 [facility] [id number] [place] [address] 09935- 5444 Aug, 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, 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 [facility] [id number] [place] [address] 28901- 6114 Aug, [facility] [id number] [place] [address] 47830- 8768 Aug, Chronic hepatitis C without hepatic coma B18.2 and Hypertension I10 [facility] [id number] [place] [address] 16800- 9054 Jul, [facility] [id number] [place] [address] 81898- 6483 June, [facility] [id number] [place] [address] 29677- 9973 Apr, Fibromyalgia M79.7 ; Left hip pain M25.552 and Decubitus ulcer of sacral region, stage 1 L89.151 [facility] [id number] [place] [address] 71358- 8550 Apr, [facility] [id number] [place] [address] 71580- 0019 Apr, [facility] [id number] [place] [address] 71240- 7783 Feb, [facility] [id number] [place] [address] 80130- 2248 Dec, Anxiety F41.9 ; Combined drug dependence excluding opioids, 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 and Unspecified episodic mood disorder F39 [facility] [id number] [place] [address] 13039- 9836 Dec, [facility] [address] [place] [address] 08060- 1799 Nov, [facility] [id number] [place] [address] 49501- 5896 Nov, [facility] [id number] [place] [address] 49025- 8458 Nov, Other disorder of impulse control F63.89 and Anxiety F41.9 [facility] [id number] [place] [address] 00773- 1754 Oct, [facility] [id number] [place] [address] 52366 -7106 Oct, Open wound of left thigh, initial encounter S71.102A [facility] [id number] [place] [address] 87883- 7472 Oct, [facility] [id number] [place] [address] 86184- 7557 Sep, Unspecified episodic mood disorder F39 ; Other disorder of impulse control 312.39 ; Combined drug dependence excluding opioids, 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 and Anxiety F41.9 [facility] [address] [place] [address] 27288- 4641 Sep, Other disorder of impulse control 312.39 ; Combined drug dependence excluding opioids, 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 ; Anxiety F41.9 and Unspecified episodic mood disorder F39 [facility] [address] [place] [address] 34119- 7888 Sep, Other chronic pain G89.29 [facility] [id number] [place] [address] 61966- 2751 Sep, [facility] [id number] [place] [address] 54332- 2710 Sep, [facility] [id number] [place] [address] 16853- 2641 Aug, [facility] [address] [address]- 7737 Aug, [facility] [id number] [place] [address] 99893- 2871 Aug, [facility] [id number] [place] [address] 42167- 5885 Jul, [facility] [id number] [place] [address] 41437- 9252 Jul, [facility] [id number] [place] [address] 09307- 0980 Jul, [facility] [id number] [place] [address] 48184- 9837 Jul, Arthritis M19.90 ; Chronic hepatitis C without hepatic coma B18.2 and Left hip pain M25.552 [facility] [id number] [place] [address] 32807- 4563 Jul, Left knee pain M25.562 [facility] [id number] [place] [address] 92877- 3585 Jul, Combined drug dependence excluding opioids, 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 ; Anxiety F41.9 ; Other disorder of impulse control 312.39 and Unspecified episodic mood disorder F39 [facility] [address] [place] [address] 73904- 1558 Jul, Left knee pain M25.562 [facility] [address] [place] [address] 46159- 6878 Jul, Left knee pain M25.562 and Left hip pain M25.552 [facility] [id number] [place] [address] 77769- 1639 Jul, [facility] [address] [place] [address] 05709- 7498 June, [facility] [id number] [place] [address] 26425- 9164 June, Combinations of drug dependence excluding opioid type drug, unspecified abuse 304.80 ; Other disorder of impulse control 312.39 ; Unspecified episodic mood disorder F39 and Anxiety F41.9 [facility] [address] [place] [address] 78800- 9392 June, Other fatigue R53.83 ; Headache R51 and Left knee pain M25.562 [facility] [id number] [place] [address] 92741- 2513 June, Unspecified episodic mood disorder F39 ; Combinations of drug dependence excluding opioid type drug, unspecified abuse 304.80 ; Other disorder of impulse control 312.39 and Anxiety F41.9 [facility] [id number] [place] [address] 89972- 3103 June, Anxiety F41.9 [facility] [id number] [place] [address] 53458- 1019 June, Pain in left knee M25.562 [facility] [id number] [place] [address] 93771- 8821 June, Anxiety F41.9 and Combinations of drug dependence excluding opioid type drug, unspecified abuse 304.80 [facility] [address] [place] [address] 85309- 4299 June, Unspecified episodic mood disorder 296.90 ; Combinations of drug dependence excluding opioid type drug, unspecified abuse 304.80 and Other disorder of impulse control 312.39 [facility] [address] [place] [address] 46683- 1846 June, Anxiety F41.9 and Unspecified episodic mood disorder 296.90 [facility] [id number] [place] [address] 94056- 2194 May, Arthritis M19.90 [facility] [address] [place] [address] 90565- 2149 May, Arthritis M19.90 [facility] [id number] [address]- 3520 18 May, 2015 Anxiety F41.9 ; Combinations of drug dependence excluding opioid type drug, unspecified abuse 304.80 and Other disorder of impulse control 312.39 [facility] [address] [address]- 7909 18 May, 2015 Left knee pain M25.562 [facility] [id number] [place] [address] 15430- 8796 14 May, 2015 Arthritis M19.90 [facility] [id number] [place] [address] 10213- 1303 May, [facility] [id number] [place] [address] 24748- 3588 May, Anxiety F41.9 ; Unspecified episodic mood disorder 296.90 ; Combinations of drug dependence excluding opioid type drug, unspecified abuse 304.80 and Other disorder of impulse control 312.39 [facility] [address] [place] [address] 16613- 5272 May, Left knee pain M25.562 [facility] [id number] [place] [address] 36365- 9628 May, Left knee pain M25.562 ; Combinations of drug dependence excluding opioid type drug, unspecified abuse 304.80 ; Other disorder of impulse control 312.39 ; Fibromyalgia M79.7 ; Hypertension I10 ; Unspecified episodic mood disorder 296.90 and Left hip pain M25.552 [facility] [address] [place] [address] 97601- 0641 May, Unspecified episodic mood disorder 296.90 ; Other disorder of impulse control 312.39 ; Combinations of drug dependence excluding opioid type drug, unspecified abuse 304.80 and Anxiety F41.9 [facility] [address] [place] [address] 73755- 2101 May, Left knee pain M25.562 ; Combinations of drug dependence excluding opioid type drug, unspecified abuse 304.80 ; Other disorder of impulse control 312.39 ; Fibromyalgia M79.7 ; Hypertension I10 ; Unspecified episodic mood disorder 296.90 and Left hip pain M25.552 [place] [address] [address] [place] [id number] [place] [id number] [id number] May, Anxiety F41.9 ; Unspecified episodic mood disorder 296.90 ; Other disorder of impulse control 312.39 and Combinations of drug dependence excluding opioid type drug, unspecified abuse 304.80 [place] [address] [place] [id number] [place] [address] [phone] 30 Apr, 2015 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 and 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, implants and grafts, initial encounter T84.82XA [place] [address] [place] [id number] [place] [address] [phone]- [phone] Apr, Anxiety F41.9 ; Unspecified episodic mood disorder 296.90 ; Combinations of drug dependence excluding opioid type drug, unspecified abuse 304.80 and Other disorder of impulse control 312.39 [place] [address] [place] [id number] [place] [address] [phone]- [phone] Apr, Arthritis M19.90 [place] [address] [place] [id number] [place] [address] [phone] Apr, Anxiety F41.9 ; Unspecified episodic mood disorder 296.90 ; Combinations of drug dependence excluding opioid type drug, unspecified abuse 304.80 and Other disorder of impulse control 312.39 [place] [address] [address] [place] [id number] [place] [address] 72459- 8710 17 Apr, 2015 Arthritis M19.90 [place] [id number] [place] [address] 78844- 1483 Apr, [place] [id number] [place] [address] 43546- 6363 Apr, [place] [id number] [place] [address] 53084- 1700 14 Apr, 2015 Unspecified episodic mood disorder 296.90 ; Combinations of drug dependence excluding opioid type drug, unspecified abuse 304.80 ; Other disorder of impulse control 312.39 and Anxiety F41.9 [facility] [address] [address] Apr, Left knee pain M25.562 [facility] [id number] [place] [address] 24604- 1202 11 Apr, 2015 [facility] [id number] [place] [address] 30002- 5761 Mar, Unspecified episodic mood disorder 296.90 ; Anxiety F41.9 ; Other disorder of impulse control 312.39 and Combinations of drug dependence excluding opioid type drug, unspecified abuse 304.80 [facility] [id number] [place] [address] 54708- 0775 25 Mar, 2015 Hyperpigmentation L81.9 [facility] [id number] [place] [address] 83569- 6750 Mar, Arthritis M19.90 and Anxiety F41.9 [facility] [id number] [place] [address] 87789- 6754 22 Mar, 2015 Unspecified episodic mood disorder F39 ; Combined drug dependence excluding opioids, 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 ; Other disorder of impulse control F63.89 and Anxiety F41.9 [facility] [id number] [place] [address] 37674- 3733 12 Mar, 2015 Well woman exam Z01.419 ; Other fatigue R53.83 ; Hot flashes N95.1 ; Depression, unspecified depression type F32.9 and Body mass index (BMI) of 23.0-23.9 in adult Z68.23 [place] [id number] [place] [address] 33362- 2413 11 Mar, 2015 Unspecified episodic mood disorder 296.90 ; Other disorder of impulse control 312.39 and Anxiety F41.9 [facility] [id number] [place] [address] 99021- 9300 11 Mar, 2015 Well woman exam Z01.419 [...] of breast Z12.39 and Limited mobility Z74.[address] 06258- 5116 Mar, [address] 93904- 0113 Mar, [address] 00305- 9646 Mar, [address] 51184- 2446 Mar, Other specified complication of internal orthopedic prosthetic devices, implants and grafts, initial encounter T84.89XA ; Fibromyalgia M79.7 ; Hypertension I10 ; Anemia D64.9 ; Insomnia G47.00 ; Anxiety F41.9 ; Arthritis M19.90 and Migraine G43.909 [place] [id number] [place] [address] 53523- 6720 Mar, [place] [address] 18944- 0652 Feb, [address] 51162- 6368 Feb, Arthritis M19.90 and Anxiety F41.9 [place] [id number] [place] [address] 18799- 0724 Feb, [place] [id number] [address]- 5188 Feb, [facility] [address] [address] 4464 Feb, [facility] [address] [address]- 8276 Feb, [facility] [id number] [place] [address] 47311- 8966 Feb, Anxiety F41.9 [facility] [address] [address] 3915 Feb, [facility] [id number] [place] [address] 35180- 3709 Feb, [facility] [address] [address]- 2541 Feb, 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 and Fibromyalgia M79.7 [facility] [address] [address]- 7214 Feb, [facility] [address] [address]- 1798 Jan, [facility] [address] [address]- 4417 Jan, [facility] [address] [address]- 9860 Jan, [facility] [address] [address]- 0318 24 Jan, 2015 [facility] [address] [address]- 1066 16 Jan, 2015 [facility] [address] [address]- 2478 08 Jan, 2015 [facility] [address] [address]- 9807 Jan, [facility] [address] [address]- 5558 Jan, [facility] [id number] [place] [address] 86954- 5056 Dec, [facility] [id number] [place] [address] 690400- 5941 Dec, Left knee pain M25.562 [facility] [id number] [place] [address] 57637- 4446 Dec, Left knee pain M25.562 [facility] [id number] [place] [address] 15801- 1833 Dec, Fibromyalgia M79.7 ; Hypertension I10 and Arthritis M19.90 [facility] [id number] [place] [address] 61501- 8389 Dec, [facility] [id number] [place] [address] 71018- 9372 Dec, [facility] [id number] [place] [address] 71565- 9756 Dec, [facility] [id number] [place] [address] 78915- 9899 Dec, [facility] [address] [address]- 1915 Nov, [facility] [id number] [place] [address] 62663- 0389 Nov, [facility] [address] [address]- 7580 Nov, [facility] [id number] [place] [address] 04571- 5979 Nov, Hypertension I10 [facility] [address] [address]- 4857 Oct, [facility] [id number] [place] [address] 67061- 0880 Oct, [facility] [address] [id number] [place] [address]- 9199 Oct, [facility] [place] [facility] [address] [id number] [place] [address]- 9434 Oct, [facility] [address] [id number] [place] [address]- 4306 Oct, [facility] [place] [facility] [address] [id number] [place] [address]- 7631 Sep, [facility] [address] [id number] [place] [address]- 5666 Sep, [facility] [address] [id number] [place] [address]- 9242 Sep, Hip pain associated with recalled total hip arthroplasty hardware 996.77 [facility] [address] [id number] [place] [address]- 0772 Sep, [facility] [address] [id number] [place] [address]- 9844 Sep, [facility] [address] [id number] [place] [address]- 7946 Sep, [facility] [address] [facility] [id number] [place] [address]- 3496 Aug, [facility] [address] [id number] [place] [address]- 5302 Jul, [facility] [place] [facility] [address] [id number] [address]- 9461 June, [facility] [place] [facility] [address] [id number] [place] [address]- 0630 June, [facility] [place] [facility] [address] [id number] [place] [address]- 2554 June, [facility] [place] [facility] [address] [id number] [address]- 7935 June, [facility] [place] [facility] [address] [id number] [place] [address]- 6705 June, [facility] [place] [facility] [address] [id number] [place] [address]- 5354 June, [facility] [place] [facility] [address] [id number] [place] [address]- 0949 May, [facility] [place] [facility] [address] [id number] [place] [address]- 5241 May, [facility] [place] [facility] [address] [id number] [place] [address]- 1529 May, [facility] [place] [facility] [address] [id number] [place] [address]- 1881 Apr, [facility] [place] [facility] [address] [id number] [place] [address]- 6880 Apr, [facility] [place] [facility] [address] [id number] [place] [address]- 9015 Apr, [facility] [place] [facility] [address] [id number] [place] [address]- 1329 Apr, [facility] [place] [facility] [address] [id number] [place] [address]- 7646 Apr, [facility] [place] [facility] [address] [id number] [place] [address]- 0919 Apr, [facility] [place] [facility] [address] [id number] [place] [address]- 7351 Apr, [facility] [place] [facility] [address] [id number] [place] [address]- 8206 Apr, [facility] [place] [facility] [address] [id number] [place] [address]- 8543 10 Apr, 2014 [facility] [place] [facility] [address] [id number] [place] [address]- 6010 05 Apr, 2014 [facility] [place] [facility] [address] [id number] [place] [address]- 5556 Apr, [facility] [place] [facility] [address] [id number] [place] [address]- 2286 Mar, [facility] [place] [facility] [address] [id number] [place] [address]- 0486 Mar, 2014 [facility] [place] [facility] [address] [id number] [place] [address]- 7000 Mar, [facility] [place] [facility] [address] [id number] [place] [address]- 2369 Mar, 2014 [facility] [place] [facility] [address] [id number] [place] [address]- 4608 Mar, [facility] [place] [facility] [address] [id number] [place] [address]- 6908 Mar, [facility] [address] [facility] [id number] [place] [address]- 7096 Feb, [facility] [place] [facility] [address] [id number] [place] [address]- 0462 Feb, [facility] [place] [facility] [address] [facility] [id number] [place] [address]- 6950 Feb, [facility] [place] [facility] [address] [facility] [id number] [place] [address]- 3104 Feb, [facility] [place] [facility] [address] [id number] [place] [address]- 8892 Jan, [facility] [place] [facility] [address] [id number] [place] [address]- 3200 Jan, [facility] [place] [facility] [address] [id number] [place] [address]- 7671 Jan, [facility] [place] [facility] [address] [id number] [place] 2425 Jan, [facility] [place] [facility] [address] [facility] [id number] [place] [address]- 8413 Dec, [facility] [place] [facility] [address] [id number] [place] [address]- 0286 Dec, [facility] [place] [facility] [address] [id number] [place] [address]- 3656 Dec, [facility] [place] [facility] [address] [id number] [place] [address]- 1548 Dec, [facility] [place] [facility] [address] [id number] [place] [address]- 3377 Dec, [facility] [place] [facility] [address] [id number] [place] [address]- 2490 Dec, [facility] [place] [facility] [address] [id number] [place] [address]- 8213 Dec, [facility] [place] [facility] [address] [id number] [place] [address]- 4118 Dec, [facility] [place] [facility] [address] [id number] [place] [address]- 2489 Dec, [facility] [place] [facility] [address] [id number] [place] [address]- 2529 Dec, [facility] [place] [facility] [address] [id number] [place] [address]- 5301 Dec, [facility] [place] [facility] [address] [id number] [place] [address]- 5368 31 Nov, 2013 [facility] [place] [facility] [address] [id number] [place] [address]- 6704 Nov, [facility] [place] [facility] [address] [id number] [place] [address]- 9277 28 Nov, 2013 [facility] [place] [facility] [address] [id number] [place] [address]- 5501 Nov, [facility] [place] [facility] [address] [id number] [place] [address]- 1998 17 Nov, 2013 [facility] [place] [facility] [address] [id number] [place] [address]- 3860 15 Nov, 2013 [facility] [place] [facility] [address] [id number] [place] [address]- 9244 15 Nov, 2013 [facility] [place] [facility] [address] [id number] [address]- 2063 15 Nov, 2013 [facility] [place] [facility] [address] [id number] [place] [address]- 7003 15 Nov, 2013 [facility] [place] [facility] [address] [id number] [place] [address]- 8154 14 Nov, 2013 [facility] [place] [facility] [address] [id number] [place] [address]- 2599 14 Nov, 2013 [facility] [place] [facility] [address] [id number] [place] [address]- 0944 14 Nov, 2013 [facility] [place] [facility] [address] [id number] [place] [address]- 7304 14 Nov, 2013 [facility] [place] [facility] [address] [id number] [address]- 0499 13 Nov, 2013 [facility] [place] [facility] [address] [id number] [place] [address]- 9333 13 Nov, 2013 [facility] [place] [facility] [address] [id number] [place] [address]- 7108 11 Nov, 2013 [facility] [place] [facility] [address] [id number] [place] [address]- 0914 11 Nov, 2013 [facility] [place] [facility] [address] [id number] [place] [address]- 8084 07 Nov, 2013 [facility] [place] [facility] [address] [id number] [place] [address]- 8748 07 Nov, 2013 [facility] [place] [facility] [address] [id number] [place] [address]- 4889 07 Nov, 2013 [facility] [place] [facility] [address] [id number] [place] [address]- 4520 07 Nov, 2013 [facility] [place] [facility] [address] [id number] [place] [address]- 4366 30 Sep, 2013 [facility] [place] [facility] [address] [id number] [place] [address] 2546 30 Sep, 2013 [facility] [place] [facility] [address] [id number] [place] [address] 2546 26 Oct, 2013 [facility] [place] [facility] [address] [id number] [place] [address] 2546 26 Oct, 2013 [facility] [place] [facility] [address] [id number] [place] [address] 2542 22 Oct, 2013 [facility] [place] [facility] [address] [id number] [place] [address]- 5467 22 Oct, 2013 [facility] [place] [facility] [address] [id number] [place] [address]- 4439 18 Oct, 2013 [facility] [place] [facility] [address] [id number] [place] [address]- 6098 18 Oct, 2013 [facility] [place] [facility] [address] [id number] [place] [address] 2544 18 Oct, 2013 [facility] [place] [facility] [address] [id number] [place] [address] 2545 18 Oct, 2013 [facility] [place] [facility] [address] [id number] [place] [address] 2540 12 Oct, 2013 [facility] [place] [facility] [address] [id number] [place] [address] 2546 12 Oct, 2013 [facility] [place] [facility] [address] [id number] [place] [address]- 2540 Oct, 2013 [facility] [place] [facility] [address] [id number] [place] [address] 2540 Oct, 2013 [facility] [place] [facility] [address] [id number] [place] [address]- 2549 Sep, [facility] [place] [facility] [address] [id number] [place] [address]- 2902 Sep, [facility] [place] [facility] [address] [id number] [place] [address]- 9170 Sep, [facility] [place] [facility] [address] [id number] [place] [address]- 7279 Sep, [facility] [place] [facility] [address] [id number] [place] [address]- 1484 Sep, [facility] [place] [facility] [address] [id number] [place] [address]- 8266 Sep, [facility] [place] [facility] [address] [id number] [place] [address]- 3212 Sep, [facility] [place] [facility] [address] [id number] [place] [address]- 8999 Sep, [facility] [place] [facility] [address] [id number] [place] [address]- 3394 Sep, [facility] [place] [facility] [address] [id number] [place] [address]- 0206 Sep, [facility] [place] [facility] [address] [id number] [place] [address]- 0246 Sep, [facility] [place] [facility] [address] [id number] [place] [address]- 5434 Sep, [facility] [place] [facility] [address] [id number] [place] [address]- 1063 Sep, [facility] [place] [facility] [address] [id number] [place] [address]- 2604 Sep, [facility] [place] [facility] [address] [id number] [place] [address]- 8464 Sep, [facility] [place] [facility] [address] [id number] [place] [address]- 4913 Sep, [facility] [place] [facility] [address] [id number] [place] [address]- 6803 Sep, [facility] [place] [facility] [address] [id number] [place] [address]- 2973 Sep, [facility] [place] [facility] [address] [id number] [place] [address]- 4669 Aug, [facility] [place] [facility] [address] [id number] [place] [address]- 0171 Aug, [facility] [place] [facility] [address] [id number] [place] [address]- 9044 Aug, [facility] [place] [facility] [address] [id number] [place] [address]- 2501 Aug, [facility] [place] [facility] [address] [id number] [place] [address]- 9576 Aug, [facility] [place] [facility] [address] [id number] [place] [address]- 9755 Aug, [facility] [place] [facility] [address] [id number] [place] [address]- 2272 Jul, [facility] [place] [facility] [address] [id number] [place] [address]- 1867 Jul, [facility] [place] [facility] [address] [id number] [place] [address]- 2490 Jul, [facility] [place] [facility] [address] [id number] [place] [address]- 7676 Jul, [facility] [place] [facility] [address] [id number] [place] [address]- 0810 June, [facility] [place] [facility] [address] [id number] [place] [address]- 0406 June, [facility] [place] [facility] [address] [id number] [place] [address]- 6455 June, [facility] [place] [facility] [address] [id number] [place] [address]- 7689 June, [facility] [place] [facility] [address] [id number] [place] [address]- 4939 June, [facility] [place] [facility] [address] [id number] [place] [address]- 8189 June, [facility] [address] [id number] [place] [address]- 9353 June, [facility] [place] [facility] [address] [id number] [place] [address]- 4126 29 May, 2013 [facility] [address] [id number] [place] [address]- 9985 May, [facility] [place] [facility] [address] [id number] [place] [address]- 2626 May, [facility] [place] [facility] [address] [id number] [place] [address]- 3796 May, [facility] [place] [facility] [address] [id number] [place] [address]- 1498 May, [facility] [place] [facility] [address] [id number] [place] [address]- 7666 May, [facility] [address] [id number] [place] [address] 31 Apr, 2013 [facility] [place] [facility] [address] [id number] [place] [address] 31 Apr, 2013 [facility] [address] [id number] [place] [address] 28 Apr, 2013 [facility] [place] [facility] [address] [id number] [place] [address] 28 Apr, 2013 [facility] [place] [facility] [address] [id number] [place] [address] 14 Apr, 2013 [facility] [place] [facility] [address] [id number] [place] [address] 14 Apr, 2013 [facility] [place] [facility] [address] [id number] [place] [address] 12 Apr, 2013 [facility] [place] [facility] [address] [id number] [place] [address] Apr, [facility] [place] [facility] [address] [id number] [place] [address] Apr, [facility] [place] [facility] [address] [id number] [place] [address] Apr, [facility] [place] [facility] [address] [id number] [place] [address] Apr, [facility] [place] [facility] [address] [id number] [place] [address]66 Apr, [facility] [place] [facility] [address] [id number] [place] [address] 39[address] Apr, [facility] [place] [facility] [address] [id number] [place] [address] Apr, [facility] [place] [facility] [address] [id number] [place] [address] Mar, [facility] [place] [facility] [address] [id number] [place] [address] Mar, [facility] [place] [facility] [address] [id number] [place] [address] Mar, [facility] [place] [facility] [address] [id number] [place] [address] Feb, [facility] [place] [facility] [address] [id number] [place] [address] Feb, [facility] [place] [facility] [address] [id number] [place] [address] Feb, [facility] [place] [facility] [address] [id number] [place] [address] Feb, [facility] [place] [facility] [address] [id number] [place] [address] Feb, [facility] [place] [facility] [address] [id number] [place] [address] Feb, [facility] [place] [facility] [address] [id number] [place] [address] 13 Feb, 2013 [facility] [address] [id number] [place] [address] Feb, [facility] [address] [id number] [place] [address] Feb, [facility] [address] [id number] [place] [address] Feb, [facility] [address] [id number] [place] [address] Jan, [facility] [address] [id number] [place] [address] Jan, [facility] [address] [id number] [place] [address] Jan, [facility] [address] [id number] [place] [address] Jan, [facility] [address] [id number] [place] [address] Jan, [facility] [address] [id number] [place] [address] Jan, [facility] [address] [id number] [place] [address] Jan, [facility] [address] [id number] [place] [address]37 Jan, [facility] [place] [facility] [address] [id number] [place] [address] Jan, [facility] [place] [facility] [address] [id number] [place] [address] Jan, [facility] [place] [facility] [address] [id number] [place] [address]46 17 Jan, 2013 [facility] [address] [id number] [place] [address] 17 Jan, 2013 [facility] [place] [facility] [address] [id number] [place] [address] Jan, [facility] [address] [id number] [place] [address] Jan, [facility] [address] [id number] [place] [address]- [address] Jan, [facility] [address] [id number] [place] [address] Jan, [facility] [address] [id number] [place] [address]- [address] Jan, [facility] [address] [id number] [place] [address]- 69[address] Jan, [facility] [address] [id number] [place] [address] Jan, [facility] [address] [id number] [place] [address]- 67[address] Jan, [facility] [address] [id number] [place] [address] Jan, [facility] [address] [id number] [place] [address] Dec, [facility] [address] [id number] [place] [address] 46[address] Dec, [facility] [place] [facility] [address] [id number] [place] [address] Dec, [facility] [place] [facility] [address] [id number] [place] [address]- [address] Dec, [facility] [place] [facility] [address] [id number] [place] [address]275 Dec, [facility] [place] [facility] [address] [id number] [place] [address]28 Dec, [facility] [place] [facility] [address] [id number] [place] [address] 8733 Dec, [facility] [place] [facility] [address] [id number] [place] [address] Dec, [facility] [place] [facility] [address] [id number] [place] [address] Dec, [facility] [place] [facility] [address] [id number] [place] [address]70 Dec, [facility] [place] [facility] [address] [id number] [place] [address] Nov, [facility] [place] [facility] [address] [id number] [place] [address] Nov, [facility] [place] [facility] [address] [id number] [place] [address] Nov, [facility] [place] [facility] [address] [id number] [place] [address] Nov, [facility] [place] [facility] [address] [id number] [place] [address] Nov, [facility] [place] [facility] [address] [id number] [place] [address] Nov, [facility] [place] [facility] [address] [id number] [place] [address] 73[address] Nov, [facility] [place] [facility] [address] [id number] [place] [address] Nov, [facility] [place] [facility] [address] [id number] [place] [address] 10 Nov, 2012 [facility] [place] [facility] [address] [id number] [place] [address] Nov, [facility] [place] [facility] [address] [id number] [place] [address] Oct, [facility] [place] [facility] [address] [id number] [place] [address] Oct, [facility] [place] [facility] [address] [id number] [place] [address] 254 Oct, [facility] [address] [id number] [place] [address] 9[address] Oct, [facility] [address] [id number] [place] [address] Oct, [facility] [address] [id number] [place] [address] 2540 Sep, [facility] [address] [id number] [place] [address]40 Sep, [facility] [address] [id number] [place] [address] 4673 Aug, [facility] [address] [id number] [place] [address] 1010 Aug, [facility] [address] [id number] [place] [address] 4293 Aug, [facility] [address] [id number] [place] [address] Aug, [facility] [address] [id number] [place] [address]604 Aug, [facility] [address] [id number] [place] [address] 7852 Aug, [facility] [address] [id number] [place] [address] 2541 Aug, [facility] [address] [id number] [place] [address]- 2549 Jul, [facility] [place] [facility] [address] [id number] [place] [address]- 8864 Jul, [facility] [address] [id number] [place] [address] 2546 June, [facility] [address] [id number] [place] [address]- 0547 June, [facility] [address] [id number] [place] [address]- 0836 June, [facility] [address] [id number] [place] [address]- 7006 June, [facility] [address] [id number] [place] [address]- 6329 June, [facility] [address] [id number] [place] [address] 5339 June, [facility] [address] [id number] [place] [address] 8815 June, [facility] [address] [id number] [place] [address]- 9192 June, [facility] [address] [id number] [place] [address]- 5237 June, [facility] [address] [id number] [place] [address]- 2957 June, [facility] [address] [id number] [place] [address]- 5080 June, [facility] [address] [id number] [place] [address] May, [facility] [address] [id number] [place] [address]- 3852 May, [facility] [place] [facility] [address] [id number] [place] [address]- 9095 May, [facility] [place] [facility] [address] [id number] [place] [address]- 5128 May, [facility] [place] [facility] [address] [id number] [place] [address]- 6017 Apr, [facility] [place] [facility] [address] [id number] [place] [address]- 1576 Apr, [facility] [place] [facility] [address] [id number] [place] [address] 6[address] Apr, [facility] [address] [id number] [place] [address]- 39[address] Mar, [facility] [address] [id number] [place] [address]- 2276 Mar, [facility] [address] [id number] [place] [address]- 6216 Feb, [facility] [address] [id number] [place] [address]- 8024 Feb, [facility] [address] [id number] [place] [address]- 0662 Feb, [facility] [address] [id number] [place] [address]- 7545 Feb, [facility] [address] [id number] [place] [address]- 0766 Feb, [facility] [address] [id number] [place] [address]- 3859 Feb, [facility] [address] [id number] [place] [address]- 2244 Feb, [facility] [address] [facility] [id number] [place] [address]- 8191 Jan, [facility] [address] [id number] [place] [address]- 4027 31 Jan, 2012 [facility] [address] [id number] [place] [address]- 9690 28 Jan, 2012 [facility] [address] [id number] [place] [address]- 4901 17 Jan, 2012 [facility] [address] [id number] [place] [address]- 3896 17 Jan, 2012 [facility] [address] [id number] [place] [address]- 5799 Jan, [facility] [place] [facility] [address] [id number] [place] [address]- 8191 Jan, [facility] [place] [facility] [address] [id number] [place] [address]- 2134 Jan, [facility] [place] [facility] [address] [id number] [place] [address]- 4482 Jan, [facility] [place] [facility] [address] [id number] [place] [address]- 0477 Jan, [facility] [place] [facility] [address] [id number] [place] [address]- 5019 Jan, [facility] [place] [facility] [address] [id number] [place] [address]- 9486 Dec, [facility] [place] [facility] [address] [id number] [place] [address]- 3379 Dec, [facility] [place] [facility] [address] [id number] [place] [address]- 0708 Dec, [facility] [place] [facility] [address] [id number] [place] [address]- 6900 Dec, [facility] [place] [facility] [address] [id number] [place] [address]- 9293 Nov, [facility] [place] [facility] [address] [id number] [place] [address]- 2396 Nov, [facility] [place] [facility] [address] [id number] [place] [address]- 0796 Nov, [facility] [place] [facility] [address] [id number] [place] [address]- 0473 27 Oct, 2011 [facility] [place] [facility] [address] [id number] [place] [address]- 6195 24 Oct, 2011 [facility] [place] [facility] [address] [id number] [place] [address]- 3981 21 Oct, 2011 [facility] [place] [facility] [address] [id number] [place] [address]- 3815 10 Oct, 2011 [facility] [place] [facility] [address] [id number] [place] [address]- 2964 07 Oct, 2011 [facility] [place] [facility] [address] [id number] [place] [address]- 9326 04 Oct, 2011 [facility] [place] [facility] [address] [id number] [place] [address]- 5236 Oct, [facility] [place] [facility] [address] [id number] [place] [address]- 5714 Sep, [facility] [place] [facility] [address] [id number] [place] [address]- 4926 Sep, [facility] [place] [facility] [address] [id number] [place] [address]- 4863 Sep, [facility] [place] [facility] [address] [id number] [place] [address]- 7920 Sep, [facility] [place] [facility] [address] [id number] [place] [address]- 8831 Sep, [facility] [place] [facility] [address] [id number] [place] [address]- 9323 Aug, [facility] [place] [facility] [address] [id number] [place] [address]- 4731 Aug, [facility] [place] [facility] [address] [id number] [place] [address]- 5996 17 Aug, 2011 [facility] [place] [facility] [address] [id number] [place] [address]- 6173 16 Aug, 2011 [facility] [place] [facility] [address] [id number] [place] [address]- 1158 Aug, [facility] [place] [facility] [address] [id number] [place] [address]- 6024 Aug, [facility] [place] [facility] [address] [id number] [place] [address]- 3226 Aug, [facility] [place] [facility] [address] [id number] [place] [address]- 7187 28 Jul, 2011 [facility] [address] [id number] [place] [address]- 7436 26 Jul, 2011 [facility] [place] [facility] [address] [id number] [place] [address]- 7180 22 Jul, 2011 [facility] [address] [id number] [place] [address]- 8753 19 Jul, 2011 [facility] [place] [facility] [address] [id number] [place] [address]- 4965 12 Jul, 2011 [facility] [address] [id number] [place] [address]- 8070 11 Jul, 2011 [facility] [address] [id number] [place] [address]- 5983 07 Jul, 2011 [facility] [address] [id number] [place] [address]- 0454 06 Jul, 2011 [facility] [address] [id number] [place] [address]- 2669 05 Jul, 2011 [facility] [address] [id number] [place] [address]- 7870 June, [facility] [address] [id number] [place] [address]- 1959 June, [facility] [address] [id number] [place] [address]- 5894 June, [facility] [address] [id number] [place] [address]- 3971 June, [facility] [place] [facility] [address] [id number] [place] [address]- 6072 June, [facility] [place] [facility] [address] [id number] [place] [address]- 5816 June, [facility] [address] [id number] [place] [address]- 3198 June, [facility] [place] [facility] [address] [id number] [place] [address]- 9170 June, [facility] [place] [facility] [address] [id number] [place] [address]- 5273 May, [facility] [place] [facility] [address] [id number] [place] [address]- 7244 23 May, 2011 [facility] [place] [facility] [address] [id number] [place] [address]- 8570 May, [facility] [address] [id number] [place] [address]- 7479 May, [facility] [place] [facility] [address] [id number] [place] [address]- 5528 May, [facility] [address] [id number] [place] [address]- 6710 May, [facility] [address] [id number] [place] [address]- 1449 May, [facility] [place] [facility] [address] [id number] [place] [address]- 7347 Apr, [facility] [place] [facility] [address] [id number] [place] [address]- 6190 Apr, [facility] [place] [facility] [address] [id number] [place] [address]- 8096 Apr, [facility] [place] [facility] [address] [id number] [place] [address]- 0454 Apr, [facility] [place] [facility] [address] [id number] [place] [address]- 9698 Apr, [facility] [place] [facility] [address] [id number] [place] [address]- 9957 Apr, [facility] [place] [facility] [address] [id number] [place] [address]- 6983 Apr, [facility] [place] [facility] [address] [id number] [place] [address]- 8186 Mar, [facility] [address] [id number] [place] [address]- 8336 Mar, [facility] [place] [facility] [address] [id number] [place] [address]- 3656 14 Mar, 2011 [facility] [place] [facility] [address] [id number] [place] [address]- 3416 Mar, [facility] [place] [facility] [address] [id number] [place] [address]- 2746 Mar, [facility] [place] [facility] [address] [id number] [place] [address]- 3726 Mar, [facility] [place] [facility] [address] [id number] [place] [address]- 4556 Mar, [facility] [address] [id number] [place] [address]- 7239 Feb, [facility] [address] [id number] [place] [address]- 8571 Feb, [facility] [place] [facility] [address] [id number] [place] [address]- 7669 Feb, [facility] [address] [id number] [place] [address]- 5300 Feb, [facility] [place] [facility] [address] [id number] [place] [address]- 2156 Feb, [facility] [place] [facility] [address] [id number] [place] [address]- 2296 Feb, [facility] [place] [facility] [address] [id number] [place] [address]- 0029 Feb, [facility] [place] [facility] [address] [id number] [place] [address] 2546 Feb, [facility] [place] [facility] [address] [id number] [place] [address]- 1182 Feb, [facility] [place] [facility] [address] [id number] [place] [address]- 8002 Feb, [facility] [address] [id number] [place] [address]- 4815 Jan, [facility] [address] [id number] [place] [address]- 9140 Jan, [facility] [address] [id number] [place] [address]- 4430 Jan, [facility] [address] [id number] [place] [address]- 7532 Jan, [facility] [address] [id number] [place] [address]- 8572 Jan, [facility] [address] [id number] [place] [address]- 4233 Jan, [facility] [address] [id number] [place] [address]- 2006 Jan, [facility] [address] [id number] [place] [address]- 6543 Jan, [facility] [address] [id number] [place] [address]- 3351 Jan, [facility] [place] [facility] [address] [id number] [place] [address]- 0674 Jan, [facility] [place] [facility] [address] [id number] [place] [address]- 9996 Jan, [facility] [place] [facility] [address] [id number] [place] [address]- 7306 Dec, [facility] [place] [facility] [address] [id number] [place] [address]- 6016 Dec, [facility] [place] [facility] [address] [id number] [place] [address]- 3380 Dec, [facility] [place] [facility] [address] [id number] [address]- 5518 16 Dec, 2010 [facility] [place] [facility] [address] [id number] [place] [address]- 0591 14 Dec, 2010 [facility] [place] [facility] [address] [id number] [place] [address]50 09 Dec, 2010 [facility] [place] [facility] [address] [id number] [place] [address]- 3781 08 Dec, 2010 [facility] [place] [facility] [address] [id number] [place] [address]- 6363 Dec, [facility] [place] [facility] [address] [id number] [place] [address]- 5872 Dec, [facility] [place] [facility] [address] [id number] [place] [address]- 9080 Nov, [facility] [place] [facility] [address] [id number] [place] [address]- 4584 Nov, [facility] [place] [facility] [address] [id number] [place] [address]- 0437 Nov, [facility] [place] [facility] [address] [id number] [place] [address]- 6183 24 Nov, 2010 [facility] [place] [facility] [address] [id number] [place] [address]- 6788 24 Nov, 2010 [facility] [place] [facility] [address] [id number] [address]- 6952 Nov, [facility] [place] [facility] [address] [id number] [place] [address]- 1902 Aug, [facility] [place] [facility] [address] [id number] [place] [address]- 1060 14 Feb, 2010 [facility] [place] [facility] [address] [id number] [place] [address]- 6713 14 Jan, 2010 [facility] [place] [facility] [address] [id number] [place] [address]- 6439 06 Jan, 2010 [facility] [place] [facility] [id number] [address]- 2624 Jan, [facility] [id number] [address]- 0088 Jan, [facility] [id number] [address]863 Jan, [facility] [id number] [address]329 Dec, [facility] [id number] [address]997 Dec, [facility] [id number] [place] [address]- 9097 Dec, [facility] [id number] [address]- 1732 Dec, [facility] [id number] [address]- 1529 Nov, [facility] [id number] [address]- 3066 Nov, [facility] [id number] [address]- 3827 Nov, IMMUNIZATIONS No Known Immunizations SOCIAL HISTORY Never Assessed REASON FOR VISIT [facility] update PLAN OF CARE VITAL SIGNS MEDICATIONS Unknown [...]
--- OUTSIDE RECORDS SUMMARY | 2018-01-13 21:50 | XMS REPORT ---
Author Author JUAN CARLOS SHEFFIELD Organization [facility] Address [address] 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 Active 879744083 Problem Hypertension I10 Active 30850673 Problem Arthritis M19.90 Active 1556488 Problem 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 Active 20442848 Problem Anxiety F41.9 Active 78568480 Problem Unspecified episodic mood disorder F39 Active 80466595 Problem Left hip pain M25.552 Active 85668468 ALLERGIES No Information ENCOUNTERS Encounter Location Date Diagnosis [facility] [address] [id number] [address] Nov, [facility] [address] [id number] [address] Oct, [facility] [address] [id number] [address] Oct, [facility] [id number] [place] [address] 71196- 4847 Oct, Arthritis M19.90 and Unspecified episodic mood disorder F39 [facility] [id number] [place] [address] 88762- 3253 Sep, Chronic hepatitis C without hepatic coma B18.2 [facility] [id number] [place] [address] 20486- 8823 Sep, Gastroesophageal reflux disease, esophagitis presence not specified K21.9 and Other chronic pain G89.29 [facility] [id number] [place] [address] 29714- 9921 Sep, [facility] [id number] [place] [address] 76702- 9165 Sep, [facility] [id number] [place] [address] 05239- 8608 Sep, Chronic hepatitis C without hepatic coma B18.2 [facility] [id number] [place] [address] 62785- 3252 Sep, 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 [facility] [id number] [place] [address] 64934- 4892 Sep, Arthritis M19.90 [facility] [id number] [place] [address] 17061- 7192 Sep, [facility] [id number] [place] [address] 49896- 6330 Sep, Unspecified episodic mood disorder F39 [facility] [id number] [place] [address] 25813- 6639 Aug, [facility] [id number] [place] [address] [id number] Aug, [facility] [id number] [place] [address] 59254- 3468 Aug, Arthritis M19.90 [facility] [id number] [place] [address] 34518- 3470 Aug, [facility] [id number] [place] [address] 87322- 3850 Aug, Obesity (BMI 30.0-34.9) E66.9 ; Unspecified episodic mood disorder F39 and Hypertension I10 [facility] [id number] [place] [address] 03791- 2505 Aug, Unspecified episodic mood disorder F39 [facility] [id number] [place] [address] 43620- 1363 Aug, [facility] [id number] [place] [address] 57638- 1656 Jul, Unspecified episodic mood disorder F39 [facility] [id number] [place] [address] 31144- 4912 Jul, [facility] [id number] [place] [address] 32077- 7488 Jul, Arthritis M19.90 [facility] [id number] [place] [address] 47637- 0900 12 Jul, 2017 Left hip pain M25.552 ; Hypertension I10 ; Other obesity due to excess calories E66.09 and Body mass index (BMI) of 34.0-34.9 in adult Z68.34 [facility] [id number] [place] [address] 28013- 8626 Jul, Unspecified episodic mood disorder F39 [facility] [id number] [place] [address] 09764- 2225 June, Gastroesophageal reflux disease, esophagitis presence not specified K21.9 [facility] [id number] [place] [address] 47822- 5559 June, [facility] [id number] [place] [address] 42313- 3320 June, [facility] [address] [address] 6170 June, Arthritis M19.90 [facility] [id number] [place] [address] 36139- 6009 June, [facility] [address] [address] 9591 June, [facility] [id number] [place] [address] 98899- 7944 June, Unspecified episodic mood disorder F39 [facility] [id number] [place] [address] 17966- 0373 May, Unspecified episodic mood disorder F39 [facility] [id number] [place] [address] 92757- 9096 May, [facility] [id number] [place] [address] 06638- 0202 May, Arthritis M19.90 [facility] [address] [address] May, Dysuria R30.0 ; Abscess L02.91 and Acute cystitis without hematuria N30.00 [facility] [address] [address] 8864 May, Other disorder of impulse control F63.89 ; Unspecified episodic mood disorder F39 ; Combined drug dependence excluding opioids, 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 ; Anxiety F41.9 and Other psychoactive substance dependence, 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 [facility] [address] [address] 2[address] May, [facility] [id number] [place] [address] 19062- 6607 May, 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 ; Unspecified episodic mood disorder F39 ; Combined drug dependence excluding opioids, 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 and Other disorder of impulse control F63.89 [facility] [id number] [place] [address] 91315- 4418 Apr, [facility] [id number] [place] [address] 98563- 3750 Apr, Arthritis M19.90 and Unspecified episodic mood disorder F39 [facility] [id number] [place] [address] 46398- 9264 Apr, Unspecified episodic mood disorder F39 [facility] [id number] [place] [address] 04207- 0842 Apr, [facility] [id number] [place] [address] 66504- 3297 Apr, [facility] [id number] [place] [address] 34503- 1372 07 Apr, 2017 Unspecified episodic mood disorder F39 ; Combined drug dependence excluding opioids, 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 ; Anxiety F41.9 ; Other psychoactive substance dependence, 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 and Other disorder of impulse control F63.89 [place] [address] [address]- 8536 Mar, Unspecified episodic mood disorder F39 [facility] [id number] [place] [address] 11817- 4486 Mar, Gastroesophageal reflux disease, esophagitis presence not specified K21.9 [facility] [id number] [place] [address] 84751- 8986 Mar, Arthritis M19.90 and Unspecified episodic mood disorder F39 [facility] [id number] [place] [address] 17505- 0476 Feb, [facility] [id number] [place] [address] 90381- 3076 Feb, [facility] [id number] [place] [address] 73197- 0796 Feb, [facility] [id number] [place] [address] 42123 2546 Feb, Arthritis M19.90 [facility] [id number] [place] [address] 89422- 9256 Feb, Non-pressure chronic ulcer of right calf, 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 ; Unspecified episodic mood disorder F39 and Left hip pain M25.552 [facility] [address] [address]- 4206 Feb, [facility] [id number] [place] [address] 88941 2546 Feb, [facility] [address] [address] 2546 Jan, Arthritis M19.90 [facility] [id number] [place] [address] 60997 2546 Jan, Left hip pain M25.552 and Non-pressure chronic ulcer of right calf, 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 [facility] [id number] [place] [address] 42234- 0850 Jan, Chronic hepatitis C without hepatic coma B18.2 [facility] [id number] [place] [address] 84953- 9034 Jan, Encounter for immunization Z23 ; Venous insufficiency ( chronic) (peripheral) I87.2 ; Non-pressure chronic ulcer of unspecified calf limited to breakdown of skin L97.201 and Gastroesophageal reflux disease, esophagitis presence not specified K21.9 [facility] [id number] [place] [address] 72729- 7522 Jan, [facility] [id number] [place] [address] 99802- 3095 Jan, Chronic hepatitis C without hepatic coma B18.2 and Encounter for immunization Z23 [facility] [id number] [place] [address] 05040- 8945 Jan, Arthritis M19.90 [facility] [id number] [place] [address] 91541- 5727 Jan, [facility] [id number] [place] [address] 35249- 2719 Dec, [facility] [id number] [place] [address] 76983- 1397 Dec, Unspecified episodic mood disorder F39 [facility] [id number] [place] [address] 93954- 2582 Dec, Arthritis M19.90 [facility] [id number] [place] [address] 88987- 2605 Dec, Arthritis M19.90 [facility] [id number] [place] [address] 70630- 8320 Nov, [facility] [id number] [place] [address] 44423- 8029 Nov, [facility] [id number] [place] [address] 88222- 5540 Nov, Other psychoactive substance dependence, 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 ; 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, 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 and Chronic hepatitis C without hepatic coma B18.2 [facility] [id number] [place] [address] 21783- 7681 Nov, Arthritis M19.90 [facility] [id number] [place] [address] 59644 -2106 Oct, Partial thickness burn of abdomen, initial encounter T21.22XA [facility] [id number] [place] [address] 94646- 9929 Oct, [facility] [address] 24383- 1825 Sep, Arthritis M19.90 [facility] [id number] [place] [address] 57325- 7555 Sep, [facility] [id number] [place] [address] 03834- 0808 Sep, [facility] [id number] [place] [address] 01193- 8960 Sep, Unspecified episodic mood disorder F39 ; Chronic hepatitis C without hepatic coma B18.2 and Left hip pain M25.552 [facility] [id number] [place] [address] 34860- 3629 Sep, Arthritis M19.90 and Left hip pain M25.552 [facility] [id number] [place] [address] 11215- 0569 Aug, [facility] [id number] [place] [address] 01370- 0324 Aug, [facility] [id number] [place] [address] 62719- 3769 Aug, Chronic hepatitis C without hepatic coma B18.2 [facility] [id number] [place] [address] 16566- 1243 Aug, [facility] [id number] [place] [address] 17208- 1936 Aug, Chronic hepatitis C without hepatic coma B18.2 [facility] [id number] [place] [address] 94854- 0794 Aug, 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, 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 [facility] [address] 94167- 7845 Aug, [facility] [id number] [place] [address] 28371- 4934 Aug, Chronic hepatitis C without hepatic coma B18.2 and Hypertension I10 [facility] [id number] [place] [address] 71148- 8372 Jul, [facility] [id number] [place] [address] 15985- 9435 June, [facility] [address] 90851- 0077 Apr, Fibromyalgia M79.7 ; Left hip pain M25.552 and Decubitus ulcer of sacral region, stage 1 L89.151 [facility] [id number] [place] [address] 73829- 5948 Apr, [facility] [id number] [place] [address] 67431- 0778 Apr, [facility] [id number] [place] [address] 91279- 0218 Feb, [facility] [id number] [place] [address] 58809- 4500 Dec, Anxiety F41.9 ; Combined drug dependence excluding opioids, 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 and Unspecified episodic mood disorder F39 [facility] [id number] [place] [address] 39737- 2956 Dec, [facility] [address] 03240- 4434 Nov, [facility] [id number] [place] [address] 37059- 6237 Nov, [facility] [id number] [place] [address] 22162- 8707 Nov, Other disorder of impulse control F63.89 and Anxiety F41.9 [facility] [id number] [place] [address] 65383- 8398 Oct, 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 and Anxiety F41.9 [facility] [id number] [place] [address] 26358- 9457 Sep, Other disorder of impulse control 312.39 ; Combined drug dependence excluding opioids, 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 ; Anxiety F41.9 and Unspecified episodic mood disorder F39 [facility] [id number] [place] [address] 17380- 6339 Sep, Other chronic pain G89.29 [facility] [id number] [place] [address] 65997- 1037 Sep, [facility] [id number] [place] [address] 69627- 3061 Sep, [facility] [id number] [place] [address] 18297- 3106 Aug, [facility] [id number] [place] [address] 17633- 4733 Aug, [facility] [address] [address]- 3447 Aug, [facility] [id number] [place] [address] 06339- 0534 Jul, [facility] [id number] [place] [address] 19561- 0409 Jul, [facility] [id number] [place] [address] 62496- 1500 Jul, [facility] [id number] [place] [address] 98438- 8968 Jul, Arthritis M19.90 ; Chronic hepatitis C without hepatic coma B18.2 and Left hip pain M25.552 [facility] [id number] [place] [address] 37870- 2274 Jul, Left knee pain M25.562 [facility] [id number] [place] [address] 36489- 7399 Jul, Combined drug dependence excluding opioids, 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 ; Anxiety F41.9 ; Other disorder of impulse control 312.39 and Unspecified episodic mood disorder F39 [facility] [id number] [place] [address] 22246- 6841 Jul, Left knee pain M25.562 [facility] [id number] [place] [address] 22095- 8068 Jul, Left knee pain M25.562 and Left hip pain M25.552 [facility] [id number] [place] [address] 15330- 0729 Jul, [facility] [id number] [place] [address] 61926- 3112 June, [facility] [id number] [place] [address] 61730- 5154 June, Combinations of drug dependence excluding opioid type drug, unspecified abuse 304.80 ; Other disorder of impulse control 312.39 ; Unspecified episodic mood disorder F39 and Anxiety F41.9 [facility] [id number] [place] [address] 71352- 4733 June, Other fatigue R53.83 ; Headache R51 and Left knee pain M25.562 [facility] [id number] [place] [address] 20031- 1947 June, Unspecified episodic mood disorder F39 ; Combinations of drug dependence excluding opioid type drug, unspecified abuse 304.80 ; Other disorder of impulse control 312.39 and Anxiety F41.9 [place] [id number] [place] [address] 08107- 2909 June, Anxiety F41.9 [facility] [id number] [place] [address] 94735- 6960 June, Pain in left knee M25.562 [place] [id number] [place] [address] 51429- 5544 June, Anxiety F41.9 and Combinations of drug dependence excluding opioid type drug, unspecified abuse 304.80 [place] [address] [id number] [place] [address] 29582- 8258 June, Unspecified episodic mood disorder 296.90 ; Combinations of drug dependence excluding opioid type drug, unspecified abuse 304.80 and Other disorder of impulse control 312.39 [place] [id number] [place] [address] 71237- 7718 June, Anxiety F41.9 and Unspecified episodic mood disorder 296.90 [place] [id number] [place] [address] 14807- 7833 May, Arthritis M19.90 [place] [address] [place] [id number] [place] [address] 24420- 8570 May, Arthritis M19.90 [facility] [id number] [place] [address] 18337- 4983 May, Anxiety F41.9 ; Combinations of drug dependence excluding opioid type drug, unspecified abuse 304.80 and Other disorder of impulse control 312.39 [place] [id number] [address] 18 May, 2015 Left knee pain M25.562 [place] [id number] [address] 14 May, 2015 Arthritis M19.90 [place] [address] [place] [id number] [place] [address] 35220- 9481 May, [place] [id number] [place] [address] 81525- 5157 May, Anxiety F41.9 ; Unspecified episodic mood disorder 296.90 ; Combinations of drug dependence excluding opioid type drug, unspecified abuse 304.80 and Other disorder of impulse control 312.39 [place] [address] [address] May, Left knee pain M25.562 [place] [address] [address] 11 May, 2015 Left knee pain M25.562 ; Combinations of drug dependence excluding opioid type drug, unspecified abuse 304.80 ; Other disorder of impulse control 312.39 ; Fibromyalgia M79.7 ; Hypertension I10 ; Unspecified episodic mood disorder 296.90 and Left hip pain M25.552 [place] [address] [address] May, Unspecified episodic mood disorder 296.90 ; Other disorder of impulse control 312.39 ; Combinations of drug dependence excluding opioid type drug, unspecified abuse 304.80 and Anxiety F41.9 [place] [id number] [place] [address] 00765- 3995 May, Left knee pain M25.562 ; Combinations of drug dependence excluding opioid type drug, unspecified abuse 304.80 ; Other disorder of impulse control 312.39 ; Fibromyalgia M79.7 ; Hypertension I10 ; Unspecified episodic mood disorder 296.90 and Left hip pain M25.552 [place] [address] [address] May, Anxiety F41.9 ; Unspecified episodic mood disorder 296.90 ; Other disorder of impulse control 312.39 and Combinations of drug dependence excluding opioid type drug, unspecified abuse 304.80 [facility] [id number] [place] [address] 35868- 2868 30 Apr, 2015 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 and 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, implants and grafts, initial encounter T84.82XA [facility] [id number] [place] [address] 15010- 0172 28 Apr, 2015 Anxiety F41.9 ; Unspecified episodic mood disorder 296.90 ; Combinations of drug dependence excluding opioid type drug, unspecified abuse 304.80 and Other disorder of impulse control 312.39 [facility] [id number] [place] [address] 72076- 1572 Apr, Arthritis M19.90 [facility] [id number] [place] [address] 29230- 7768 Apr, Anxiety F41.9 ; Unspecified episodic mood disorder 296.90 ; Combinations of drug dependence excluding opioid type drug, unspecified abuse 304.80 and Other disorder of impulse control 312.39 [facility] [id number] [place] [address] 89812- 9005 17 Apr, 2015 Arthritis M19.90 [facility] [id number] [place] [address] 38944- 0101 15 Apr, 2015 [facility] [id number] [place] [address] 91956- 0261 15 Apr, 2015 [place] [id number] [place] [address] 57807- 0676 14 Apr, 2015 Unspecified episodic mood disorder 296.90 ; Combinations of drug dependence excluding opioid type drug, unspecified abuse 304.80 ; Other disorder of impulse control 312.39 and Anxiety F41.9 [facility] [id number] [place] [address] 46978 -3702 Apr, Left knee pain M25.562 [place] [id number] [place] [address] 56840- 8955 Apr, [place] [id number] [place] [address]60 Mar, Unspecified episodic mood disorder 296.90 ; Anxiety F41.9 ; Other disorder of impulse control 312.39 and Combinations of drug dependence excluding opioid type drug, unspecified abuse 304.80 [place] [id number] [place] [address] 19710- 5879 Mar, Hyperpigmentation L81.9 [place] [id number] [place] [address] 13468- 1224 Mar, Arthritis M19.90 and Anxiety F41.[address] 30707- 4033 Mar, Unspecified episodic mood disorder F39 ; Combined drug dependence excluding opioids, 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 ; Other disorder of impulse control F63.89 and Anxiety F41.9 [place] [id number] [place] [address] 69997- 4253 12 Mar, 2015 Well woman exam Z01.419 ; Other fatigue R53.83 ; Hot flashes N95.1 ; Depression, unspecified depression type F32.9 and Body mass index (BMI) of 23.0-23.9 in adult Z68.23 [place] [id number] [place] [address] 43885- 3699 11 Mar, 2015 Unspecified episodic mood disorder 296.90 ; Other disorder of impulse control 312.39 and Anxiety F41.9 [place] [id number] [place] [address] 76156- 1565 11 Mar, 2015 Well woman exam Z01.419 [...] of breast Z12.39 and Limited mobility Z74.09 [place] [address] [address]281- 5556 Mar, [address] 13629- 6263 Mar, [address] 23447- 8631 Mar, [address] 16272- 4679 Mar, Other specified complication of internal orthopedic prosthetic devices, implants and grafts, initial encounter T84.89XA ; Fibromyalgia M79.7 ; Hypertension I10 ; Anemia D64.9 ; Insomnia G47.00 ; Anxiety F41.9 ; Arthritis M19.90 and Migraine G43.909 [place] [id number] [place] [address] 22237- 4757 Mar, [address] 16687- 8784 Feb, [place] [id number] [place] [address] 82504- 8883 Feb, Arthritis M19.90 and Anxiety F41.[address] 17425- 8981 Feb, [place] [id number] [place] [address] 28019- 5770 Feb, [place] [id number] [place] [address]- 7928 Feb, [facility] [id number] [place] [address]- 3233 Feb, [facility] [id number] [place] [address]- 3125 18 Feb, 2015 Anxiety F41.9 [facility] [id number] [place] [address]- 0202 15 Feb, 2015 [facility] [address] [facility] [id number] [place] [address]- 9683 Feb, [facility] [id number] [place] [address], [place] [address]- 9007 Feb, 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 and Fibromyalgia M79.7 [facility] [id number] [place] [address]- 2117 Feb, [facility] [id number] [address]- 6208 Jan, [facility] [id number] [place] [address]- 9985 Jan, [facility] [id number] [place] [address]- 4599 Jan, [facility] [id number] [address]- 1486 24 Jan, 2015 [facility] [id number], [place] [address]- 3382 16 Jan, 2015 [facility] [id number] [place] [address]- 2814 08 Jan, 2015 [facility] [id number] [place] [address]- 2237 07 Jan, 2015 [facility] [address] [id number] [place] [address]- 3477 07 Jan, 2015 [facility] [address] [address]- 8817 Dec, [facility] [id number] [place] [address] 43686- 6184 Dec, Left knee pain M25.562 [facility] [id number] [place] [address] 79576- 7674 Dec, Left knee pain M25.562 [facility] [id number] [place] [address] 96219- 0125 16 Dec, 2014 Fibromyalgia M79.7 ; Hypertension I10 and Arthritis M19.90 [facility] [id number] [place] [address] 03093- 9616 Dec, [facility] [id number] [place] [address] 93128- 1353 Dec, [facility] [id number] [place] [address] 97356- 1835 Dec, [facility] [id number] [place] [address] 14710- 9487 Dec, [facility] [id number] [place] [address] 55221- 1700 Nov, [facility] [id number] [place] [address] 75452- 7891 Nov, [facility] [id number] [place] [address] 04275- 1861 Nov, [facility] [id number] [place] [address] 76431- 0658 Nov, Hypertension I10 [facility] [id number] [place] [address] 83328- 3044 Oct, [facility] [address] [address]- 5096 Oct, [facility] [id number] [place] [address] 287843- 5118 Oct, [facility] [address] [id number] [place] [address]- 2302 Oct, [facility] [address] [id number] [place] [address]- 1944 Oct, [facility] [address] [id number] [place] [address]- 5459 Sep, [facility] [address] [id number] [place] [address]- 6804 Sep, [facility] [address] [id number] [place] [address]- 0991 Sep, Hip pain associated with recalled total hip arthroplasty hardware 996.77 [facility] [address] [id number] [place] [address]- 5323 Sep, [facility] [address] [id number] [place] [address]- 0866 Sep, [facility] [address] [id number] [place] [address]- 8022 Sep, [facility] [address] [id number] [place] [address]- 8500 Aug, [facility] [address] [facility] [id number] [place] [address]- 7710 Jul, [facility] [address] [id number] [place] [address]- 3543 June, [facility] [place] [facility] [address] [id number] [place] [address]- 7082 June, [facility] [place] [facility] [address] [id number] [place] [address]- 7665 June, [facility] [place] [facility] [address] [id number] [place] [address]- 1766 June, [facility] [place] [facility] [address] [id number] [place] [address]- 8687 June, [facility] [place] [facility] [address] [id number] [place] [address]- 7371 June, [facility] [place] [facility] [address] [id number] [place] [address]- 3873 30 May, 2014 [facility] [place] [facility] [address] [id number] [place] [address]- 4453 14 May, 2014 [facility] [place] [facility] [address] [id number] [place] [address]- 7257 May, [facility] [place] [facility] [address] [id number] [place] [address]- 0527 30 Apr, 2014 [facility] [place] [facility] [address] [id number] [place] [address]- 1919 30 Apr, 2014 [facility] [place] [facility] [address] [id number] [place] [address]- 0179 Apr, [facility] [place] [facility] [address] [id number] [place] [address]- 0130 Apr, [facility] [place] [facility] [address] [id number] [place] [address]- 2286 Apr, [facility] [place] [facility] [address] [id number] [place] [address]- 6144 Apr, [facility] [place] [facility] [address] [id number] [place] [address]- 5341 Apr, [facility] [place] [facility] [address] [id number] [place] [address]- 1972 Apr, [facility] [place] [facility] [address] [id number] [place] [address]- 1065 10 Apr, 2014 [facility] [place] [facility] [address] [id number] [place] [address]- 7196 05 Apr, 2014 [facility] [place] [facility] [address] [id number] [place] [address]- 0066 05 Apr, 2014 [facility] [place] [facility] [address] [id number] [place] [address]- 9065 Mar, 2014 [facility] [address] [id number] [place] [address]- 7419 Mar, 2014 [facility] [place] [facility] [address] [id number] [place] 7866 Mar, 2014 [facility] [place] [facility] [address] [id number] [place] [address]- 2586 16 Mar, 2014 [facility] [place] [facility] [address] [id number] [place] [address]- 6803 Mar, 2014 [facility] [place] [facility] [address] [id number] [place] [address]- 1282 Mar, [facility] [place] [facility] [address] [id number] [place] [address]- 9450 Feb, [facility] [address] [facility] 2001 [id number] [place] [address]- 1953 Feb, [facility] [place] [facility] [address] [id number] [place] [address]- 8765 Feb, [facility] [place] [facility] [address] [id number] [place] [address]- 4600 Feb, [facility] [place] [facility] [address] [facility] [id number] [place] [address]- 2842 Jan, [facility] [place] [facility] [address] [id number] [place] [address]- 7718 Jan, [facility] [place] [facility] [address] [id number] [place] [address]- 9497 Jan, [facility] [place] [facility] [address] [id number] [place] [address]- 4026 Jan, [facility] [place] [facility] [address] [id number] [place] [address]- 8249 Dec, [facility] [place] [facility] [address] [id number] [place]- 3368 Dec, [facility] [place] [facility] [address] [id number] [place] [address]- 1623 Dec, [facility] [place] [facility] [address] [id number] [place] [address]- 2566 Dec, [facility] [place] [facility] [address] [id number] [place] [address]- 2866 Dec, [facility] [place] [facility] [address] [id number] [place] [address]- 9862 Dec, [facility] [place] [facility] [address] [id number] [place] [address]- 0822 Dec, [facility] [place] [facility] [address] [id number] [place] [address]- 5988 Dec, [facility] [place] [facility] [address] [id number] [place] [address]- 8027 Dec, [facility] [place] [facility] [address] [id number] [place] [address]- 4734 Dec, [facility] [place] [facility] [address] [id number] [place] [address]- 8961 Dec, [facility] [place] [facility] [address] [id number] [place] [address]- 7452 Nov, [facility] [place] [facility] [address] [id number] [place] [address]- 0727 Nov, [facility] [place] [facility] [address] [id number] [place] [address]- 7071 28 Nov, 2013 [facility] [place] [facility] [address] [id number] [place] [address]- 4855 Nov, [facility] [place] [facility] [address] [id number] [place] [address]- 4905 17 Nov, 2013 [facility] [place] [facility] [address] [id number] [place] [address]- 7328 15 Nov, 2013 [facility] [place] [facility] [address] [id number] [place] [address]- 4218 15 Nov, 2013 [facility] [place] [facility] [address] [id number] [place] [address]- 1744 15 Nov, 2013 [facility] [place] [facility] [address] [id number] [place] [address]- 6926 15 Nov, 2013 [facility] [place] [facility] [address] [id number] [place] [address]- 1181 14 Nov, 2013 [facility] [place] [facility] [address] [id number] [place] [address]- 9230 14 Nov, 2013 [facility] [place] [facility] [address] [id number] [place] [address]- 3839 14 Nov, 2013 [facility] [place] [facility] [address] [id number] [place] [address]- 3450 14 Nov, 2013 [facility] [place] [facility] [address] [id number] [place] [address]- 6430 13 Nov, 2013 [facility] [place] [facility] [address] [id number] [address]- 8570 13 Nov, 2013 [facility] [place] [facility] [address] [id number], [place] [address]- 4356 11 Nov, 2013 [facility] [place] [facility] [address] [id number], [place] [address]- 5930 11 Nov, 2013 [facility] [place] [facility] [address] [id number], [place] [address]- 1988 07 Nov, 2013 [facility] [place] [facility] [address] [id number], [place] [address]- 6286 07 Nov, 2013 [facility] [place] [facility] [address] [id number], [place] [address]- 8072 07 Nov, 2013 [facility] [place] [facility] [address] [id number], [place] [address]- 0541 07 Nov, 2013 [facility] [place] [facility] [address] [id number], [place] [address]- 0186 30 Oct, 2013 [facility] [place] [facility] [address] [id number] [place] [address]- 1567 30 Oct, 2013 [facility] [place] [facility] [address] [id number] [place] [address] 2546 26 Oct, 2013 [facility] [place] [facility] [address] [id number] [place] [address] 2546 26 Oct, 2013 [facility] [place] [facility] [address] [id number] [place] [address] 254 22 Oct, 2013 [facility] [place] [facility] [address] [id number] [place] [address] 2542 22 Oct, 2013 [facility] [place] [facility] [address] [id number] [place] [address]- 1604 18 Oct, 2013 [facility] [place] [facility] [address] [id number] [place] [address]- 2323 18 Oct, 2013 [facility] [place] [facility] [address] [id number] [place] [address]- 6398 18 Oct, 2013 [facility] [place] [facility] [address] [id number] [place] [address]- 4499 18 Oct, 2013 [facility] [place] [facility] [address] [id number] [place] [address] 2540 12 Oct, 2013 [facility] [place] [facility] [address] [id number] [place] [address]- 2548 12 Oct, 2013 [facility] [place] [facility] [address] [id number] [place] [address] 2547 Oct, 2013 [facility] [place] [facility] [address] [id number] [place] [address]- 2542 Oct, 2013 [facility] [place] [facility] [address] [id number] [place] [address]- 0527 Sep, [facility] [place] [facility] [address] [id number] [place] [address]- 6948 Sep, [facility] [place] [facility] [address] [id number] [place] [address]- 8502 Sep, [facility] [place] [facility] [address] [id number] [place] [address]- 3645 Sep, [facility] [place] [facility] [address] [id number] [place] [address]- 0407 Sep, [facility] [place] [facility] [address] [id number] [place] [address]- 1880 Sep, [facility] [place] [facility] [address] [id number] [place] [address]- 3641 Sep, [facility] [place] [facility] [address] [id number] [place] [address]- 8135 Sep, [facility] [place] [facility] [address] [id number] [place] [address]- 2140 Sep, [facility] [place] [facility] [address] [id number] [place] [address]- 9830 Sep, [facility] [place] [facility] [address] [id number] [place] [address]- 3711 Sep, [facility] [place] [facility] [address] [id number] [place] [address]- 8309 Sep, [facility] [place] [facility] [address] [id number] [place] [address]- 8506 Sep, [facility] [place] [facility] [address] [id number] [place] [address]- 6264 Sep, [facility] [place] [facility] [address] [id number] [place] [address]- 7345 Sep, [facility] [place] [facility] [address] [id number] [place] [address]- 4871 Sep, [facility] [place] [facility] [address] [id number] [place] [address]- 3749 Sep, [facility] [place] [facility] [address] [id number] [place] [address]- 8044 Sep, [facility] [place] [facility] [address] [id number] [place] [address]- 0633 Aug, [facility] [place] [facility] [address] [id number] [place] [address]- 0799 Aug, [facility] [place] [facility] [address] [id number] [place] [address]- 2283 Aug, [facility] [place] [facility] [address] [id number] [place] [address]- 4391 Aug, [facility] [place] [facility] [address] [id number] [place] [address]- 0340 Aug, [facility] [place] [facility] [address] [id number] [place] [address] Aug, [facility] [place] [facility] [address] [id number] [place] [address] Jul, [facility] [place] [facility] [address] [id number] [place] [address] Jul, [facility] [place] [facility] [address] [id number] [place] [address] Jul, [facility] [place] [facility] [address] [id number] [place] [address] Jul, [facility] [place] [facility] [address] [id number] [place] [address] June, [facility] [place] [facility] [address] [id number] [place] [address] June, [facility] [place] [facility] [address] [id number] [place] [address] June, [facility] [place] [facility] [address] [id number] [place] [address] June, [facility] [place] [facility] [address] [id number] [place] [address] June, [facility] [place] [facility] [address] [id number] [place] [address] June, [facility] [place] [facility] [address] [id number] [place] [address] June, [facility] [address] [id number] [place] [address] May, [facility] [place] [facility] [address] [id number] [place] [address] May, [facility] [address] [id number] [place] [address] May, [facility] [place] [facility] [address] [id number] [place] [address] 29[address] May, [facility] [place] [facility] [address] [id number] [place] [address] May, [facility] [place] [facility] [address] [id number] [place] [address] May, [facility] [place] [facility] [address] [id number] [place] [address] 31 Apr, 2013 [facility] [address] [id number] [place] [address]- [address] 31 Apr, 2013 [facility] [place] [facility] [address] [id number] [place] [address] 28 Apr, 2013 [facility] [address] [id number] [place] [address]- [address]84 28 Apr, 2013 [facility] [place] [facility] [address] [id number] [place] [address]- [address] 14 Apr, 2013 [facility] [place] [facility] [address] [id number] [place] [address] 14 Apr, 2013 [facility] [place] [facility] [address] [id number] [place] [address]- [address] 12 Apr, 2013 [facility] [place] [facility] [address] [id number] [place] [address]- [address] 12 Apr, 2013 [facility] [place] [facility] [address] [id number] [place] [address] Apr, [facility] [place] [facility] [address] [id number] [place] [address] Apr, [facility] [place] [facility] [address] [id number] [place] [address]- [address] Apr, [facility] [place] [facility] [address] [id number] [place] [address] Apr, [facility] [place] [facility] [address] [id number] [place] [address]- [address] Apr, [facility] [place] [facility] [address] [id number] [place] [address]- [address]27 Apr, [facility] [place] [facility] [address] [id number] [place] [address] Mar, [facility] [place] [facility] [address] [id number] [place] [address] Mar, [facility] [place] [facility] [address] [id number] [place] [address] Mar, [facility] [place] [facility] [address] [id number] [place] [address]- [address] Feb, [facility] [place] [facility] [address] [id number] [place] [address]- [address] Feb, [facility] [place] [facility] [address] [id number] [place] [address]- [address] Feb, [facility] [place] [facility] [address] [id number] [place] [address] Feb, [facility] [place] [facility] [address] [id number] [place] [address] 279[address] Feb, [facility] [place] [facility] [address] [id number] [place] [address]- [address] Feb, [facility] [place] [facility] [address] [id number] [place] [address]- [address]61 Feb, [facility] [place] [facility] [address] [id number] [place] [address]- 94[address] Feb, [facility] [address] [id number] [place] [address] Feb, [facility] [address] [id number] [place] [address]- [address] Feb, [facility] [address] [id number] [place] [address]- 14[address] Jan, [facility] [place] [facility] [address] [id number] [place] [address]- [address] 30 Jan, 2013 [facility] [address] [id number] [place] [address]- [address] Jan, [facility] [address] [id number] [place] [address]- 114[address] Jan, [facility] [address] [id number] [place] [address]- [address] Jan, [facility] [address] [id number] [place] [address]- [address] 24 Jan, 2013 [facility] [address] [id number] [place] [address]- [address] Jan, [facility] [address] [id number] [place] [address] Jan, [facility] [address] [id number] [place] [address] 5916 Jan, [facility] [place] [facility] [address] [id number] [place] [address]- 2545 19 Jan, 2013 [facility] [place] [facility] [address] [id number] [place] [address]- 0127 17 Jan, 2013 [facility] [place] [facility] [address] [id number] [place] [address] 17 Jan, 2013 [facility] [address] [id number] [place] [address] 5759 Jan, [facility] [place] [facility] [address] [id number] [place] [address] 6984 Jan, [facility] [address] [id number] [place] [address]- 7082 Jan, [facility] [address] [id number] [place] [address] Jan, [facility] [address] [id number] [place] [address]- 2160 Jan, [facility] [address] [id number] [place] [address]- 6295 Jan, [facility] [address] [id number] [place] [address]- 9703 Jan, [facility] [address] [id number] [place] [address]- 5567 Jan, [facility] [address] [id number] [place] [address]- 7350 Jan, [facility] [address] [id number] [place] [address]- 8259 Dec, [facility] [address] [id number] [place] [address]- 1654 Dec, [facility] [address] [id number] [place] [address]- 0032 Dec, [facility] [place] [facility] [address] [id number] [place] [address]- 5719 Dec, [facility] [place] [facility] [address] [id number] [place] [address]- 7968 Dec, [facility] [place] [facility] [address] [id number] [place] [address]- 1153 Dec, [facility] [place] [facility] [address] [id number] [place] [address]- 0485 Dec, [facility] [place] [facility] [address] [id number] [place] [address]- 6350 Dec, [facility] [place] [facility] [address] [id number] [place] [address]- 3444 Dec, [facility] [place] [facility] [address] [id number] [place] [address] Dec, [facility] [place] [facility] [address] [id number] [place] [address]- 3087 Nov, [facility] [place] [facility] [address] [id number] [place] [address]- 3599 Nov, [facility] [place] [facility] [address] [id number] [place] [address]- 5390 Nov, [facility] [place] [facility] [address] [id number] [place] [address]- 8200 Nov, [facility] [place] [facility] [address] [id number] [place] [address]- 6445 Nov, [facility] [place] [facility] [address] [id number] [place] [address]- 2117 Nov, [facility] [place] [facility] [address] [id number] [place] [address]- 0493 Nov, [facility] [place] [facility] [address] [id number] [place] [address]- 5501 Nov, [facility] [place] [facility] [address] [id number], [place] [address]- 1714 Nov, [facility] [place] [facility] [address] [id number], [place] [address]- 2325 Nov, [facility] [place] [facility] [address] [id number] [place] [address]- 0359 Oct, [facility] [place] [facility] [address] [id number] [place] [address]- 7596 Oct, [facility] [place] [facility] [address] [id number] [place] [address]- 6881 Oct, [facility] [place] [facility] [address] [id number] [place] [address]- 2546 Oct, [facility] [address] [id number] [place] [address]- 5741 Oct, [facility] [address] [id number] [place] [address]- 2546 Sep, [facility] [address] [id number] [place] [address]- 2546 Sep, [facility] [address] [id number] [place] [address]- 4664 Aug, [facility] [address] [id number] [place] [address]- 0855 Aug, [facility] [address] [id number] [place] [address]- 0295 Aug, [facility] [address] [id number] [place] [address]- 5631 Aug, [facility] [address] [id number] [place] [address]- 1722 Aug, [facility] [address] [id number] [place] [address]- 9944 Aug, [facility] [address] [id number] [place] [address]- 8219 Aug, [facility] [address] [id number] [place] [address]- 5500 Jul, [facility] [address] [id number] [place] [address]- 254 Jul, [facility] [place] [facility] [address] [id number] [place] [address]- 5611 June, [facility] [address] [id number] [place] [address]- 2546 June, [facility] [address] [id number] [place] [address]- 6518 June, [facility] [address] [id number] [place] [address]- 2670 June, [facility] [address] [id number] [place] [address]- 8835 June, [facility] [address] [id number] [place] [address]- 3038 June, [facility] [address] [id number] [place] [address]- 5309 June, [facility] [address] [id number] [place] 111[address] June, [facility] [address] [id number] [place] [address]- 9424 June, [facility] [address] [id number] [place] [address]- 1489 June, [facility] [address] [id number] [place] [address]- 2043 June, [facility] [address] [id number] [place] [address]- 7519 May, [facility] [address] [id number] [place] [address]- 4945 May, [facility] [address] [id number] [place] [address]- 0588 May, [facility] [place] [facility] [address] [id number] [place] [address]- 5500 May, [facility] [place] [facility] [address] [id number] [place] [address]- 9752 Apr, [facility] [place] [facility] [address] [id number] [place] [address]- 7741 Apr, [facility] [place] [facility] [address] [id number] [place] [address]- 9642 Apr, [facility] [place] [facility] [address] [id number] [place] [address]- 4105 Mar, [facility] [address] [id number] [place] [address]- 9696 Mar, [facility] [address] [id number] [place] [address]- 7526 Feb, [facility] [address] [id number] [place] [address]- 9792 Feb, [facility] [address] [id number] [place] [address]- 1867 Feb, [facility] [address] [id number] [place] [address]- 0609 Feb, [facility] [address] [id number] [place] [address]- 6376 Feb, [facility] [address] [id number] [place] [address]- 8508 Feb, [facility] [address] [id number] [place] [address]- 9481 Feb, [facility] [address] [id number] [place] [address]- 8121 Jan, [facility] [address] [facility] [id number] [place] [address]- 1036 Jan, [facility] [address] [id number] [place] [address]- 7526 Jan, [facility] [address] [id number] [place] [address]- 0230 Jan, [facility] [address] [id number] [place] [address]- 0591 Jan, [facility] [address] [id number] [place] [address]- 4034 Jan, [facility] [address] [id number] [place] [address]- 6895 Jan, [facility] [place] [facility] [address] [id number] [place] [address]- 5213 Jan, [facility] [place] [facility] [address] [id number] [place] [address]- 9446 Jan, [facility] [place] [facility] [address] [id number] [place] [address]- 2426 Jan, [facility] [place] [facility] [address] [id number] [place] [address]- 3396 Jan, [facility] [place] [facility] [address] [id number] [place] [address]- 0053 Dec, [facility] [place] [facility] [address] [id number] [place] [address]- 9623 Dec, [facility] [place] [facility] [address] [id number] [place] [address]- 0332 Dec, [facility] [place] [facility] [address] [id number] [place] [address]- 3000 Dec, [facility] [place] [facility] [address] [id number] [place] [address]- 7232 Nov, [facility] [place] [facility] [address] [id number] [place] [address]- 5446 Nov, [facility] [place] [facility] [address] [id number] [place] [address]- 9385 Nov, [facility] [place] [facility] [address] [id number] [place] [address]- 1191 27 Oct, 2011 [facility] [place] [facility] [address] [id number] [place] [address]- 8758 24 Oct, 2011 [facility] [place] [facility] [address] [id number] [place] [address]- 1469 21 Oct, 2011 [facility] [place] [facility] [address] [id number] [place] [address]- 7925 10 Oct, 2011 [facility] [place] [facility] [address] [id number] [place] [address]- 3844 07 Oct, 2011 [facility] [place] [facility] [address] [id number] [place] [address]- 9016 04 Oct, 2011 [facility] [place] [facility] [address] [id number] [place] [address]- 1116 04 Oct, 2011 [facility] [place] [facility] [address] [id number] [place] [address]- 8184 Sep, [facility] [place] [facility] [address] [id number] [place] [address]- 8162 Sep, [facility] [place] [facility] [address] [id number] [place] [address]- 8166 Sep, [facility] [place] [facility] [address] [id number] [place] [address]- 7247 Sep, [facility] [place] [facility] [address] [id number] [place] [address]- 7958 Sep, [facility] [place] [facility] [address] [id number] [place] [address]- 3079 Aug, [facility] [place] [facility] [address] [id number] [place] [address]- 4394 Aug, [facility] [place] [facility] [address] [id number] [place] [address]- 1354 Aug, [facility] [place] [facility] [address] [id number] [place] [address]- 1220 16 Aug, 2011 [facility] [place] [facility] [address] [id number] [place] [address]- 1507 Aug, [facility] [place] [facility] [address] [id number] [place] [address]- 9387 Aug, [facility] [place] [facility] [address] [id number] [place] [address]- 3352 Aug, [facility] [place] [facility] [address] [id number] [place] [address]- 2509 Jul, [facility] [place] [facility] [address] [id number] [place] [address]- 0058 26 Jul, 2011 [facility] [address] [id number] [place] [address]- 8056 Jul, [facility] [address] [id number] [place] [address]- 7194 Jul, [facility] [address] [id number] [place] [address]- 0443 Jul, [facility] [address] [id number] [place] [address]- 7959 Jul, [facility] [address] [id number] [place] [address]- 3641 07 Jul, 2011 [facility] [address] [id number] [place] [address]- 8807 06 Jul, 2011 [facility] [address] [id number] [place] [address]- 6918 05 Jul, 2011 [facility] [address] [id number] [place] [address]- 6514 June, [facility] [address] [id number] [place] [address]- 1381 June, [facility] [address] [id number] [place] [address]- 0486 June, [facility] [address] [id number] [place] [address]- 0829 June, [facility] [address] [id number] [place] [address]- 6542 June, [facility] [place] [facility] [address] [id number] [place] [address]- 1665 June, [facility] [place] [facility] [address] [id number] [place] [address]- 1018 June, [facility] [address] [id number] [place] [address]- 0351 June, [facility] [place] [facility] [address] [id number] [place] [address]- 0698 May, [facility] [place] [facility] [address] [id number] [place] [address]- 5347 May, [facility] [place] [facility] [address] [id number] [place] [address]- 7408 May, [facility] [place] [facility] [address] [id number] [place] [address]- 4225 May, [facility] [address] [id number] [place] [address]- 4983 May, [facility] [place] [facility] [address] [id number] [place] [address]- 0236 May, [facility] [address] [id number] [place] [address]- 2097 May, [facility] [address] [id number] [place] [address]- 1626 Apr, [facility] [place] [facility] [address] [id number] [place] [address]- 0345 Apr, [facility] [place] [facility] [address] [id number] [place] [address]- 3277 Apr, [facility] [place] [facility] [address] [id number] [place] [address]- 0392 Apr, [facility] [place] [facility] [address] [id number], [place] [address]- 8052 Apr, [facility] [place] [facility] [address] [id number] [place] [address]- 3384 Apr, [facility] [place] [facility] [address] [id number] [place] [address]- 6986 Apr, [facility] [place] [facility] [address] [id number] [place] [address]- 6566 Mar, [facility] [place] [facility] [address] [id number] [place] [address]- 2444 20 Mar, 2011 [facility] [address] [id number] [place] [address]- 3756 14 Mar, 2011 [facility] [place] [facility] [address] [id number] [place] [address]- 2006 13 Mar, 2011 [facility] [address] [id number] [place] [address]- 5926 Mar, [facility] [place] [facility] [address] [id number] [place] [address] 2546 Mar, [facility] [address] [id number] [place] [address]- 2886 Mar, [facility] [address] [id number] [place] [address]- 5861 Feb, [facility] [address] [id number] [place] [address]- 1175 Feb, [facility] [address] [id number] [place] [address]- 2548 Feb, [facility] [place] [facility] [address] [id number] [place] [address]- 4070 Feb, [facility] [address] [id number] [place] [address]- 8031 Feb, [facility] [address] [id number] [place] [address]- 1316 Feb, [facility] [place] [facility] [address] [id number] [place] [address]- 4441 Feb, [facility] [place] [facility] [address] [id number] [place] [address]- 4820 Feb, [facility] [place] [facility] [address] [id number] [place] [address]- 6876 Feb, [facility] [place] [facility] [address] [id number] [place] [address]- 9388 Feb, [facility] [place] [facility] [address] [id number] [place] [address]- 3879 Jan, [facility] [place] [facility] [address] [id number] [place] [address]- 3506 Jan, [facility] [place] [facility] [address] [id number] [place] [address]- 7967 Jan, [facility] [place] [facility] [address] [id number] [place] [address]- 7822 Jan, [facility] [address] [id number] [place] [address]- 7289 Jan, [facility] [place] [facility] [address] [id number] [place] [address]- 1923 Jan, [facility] [address] [id number] [place] [address]- 8050 Jan, [facility] [address] [id number] [place] [address]- 2349 Jan, [facility] [place] [facility] [address] [id number] [place] [address]- 7574 Jan, [facility] [place] [facility] [address] [id number] [place] [address]- 2297 Jan, [facility] [place] [facility] [address] [id number] [place] [address]- 7495 Jan, [facility] [place] [facility] [address] [id number] [place] [address]- 0941 Dec, [facility] [place] [facility] [address] [id number] [place] [address]- 6787 Dec, [facility] [place] [facility] [address] [id number] [place] [address]- 0302 Dec, [facility] [place] [facility] [address] [id number] [place] [address]- 7127 16 Dec, 2010 [facility] [place] [facility] [address] [id number] [place] [address]- 8782 14 Dec, 2010 [facility] [place] [facility] [address] [id number] [place] [address]- 4290 09 Dec, 2010 [facility] [place] [facility] [address] [id number] [place] 7431 08 Dec, 2010 [facility] [place] [facility] [address] [id number] [place] [address]- 5175 Dec, [facility] [place] [facility] [address] [id number] [place] [address]- 4212 Dec, [facility] [place] [facility] [address] [id number] [place] [address]- 2037 Nov, [facility] [place] [facility] [address] [id number] [place] [address]- 0866 Nov, [facility] [place] [facility] [address] [id number] [place] [address]- 0514 Nov, [facility] [place] [facility] [address] [id number] [place] [address] 24 Nov, 2010 [facility] [place] [facility] [address] [id number] [place] [address] 24 Nov, 2010 [facility] [place] [facility] [address] [id number] [place] [address] Nov, [facility] [place] [facility] [address] [id number] [address] Aug, [facility] [place] [facility] [address] [id number] [place] [address] 14 Feb, 2010 [facility] [place] [facility] [address] [id number] [place] [address] 14 Jan, 2010 [facility] [place] [facility] [address] [id number] [place] [address] Jan, [facility] [place] [facility] [address] [id number] [place] [address] Jan, [facility] [place] [facility] [address] [id number] [address] Jan, [facility] [address] [id number] [address] Jan, [facility] [id number] [address] Dec, [facility] [id number], [place] [address] Dec, [facility] [id number], [place] [address] Dec, [facility] [id number], [place] [address] Dec, [facility] [id number] [address] Nov, [facility] [id number] [address] Nov, [facility] [id number] [address] Nov, IMMUNIZATIONS No Known Immunizations SOCIAL HISTORY Never Assessed REASON FOR VISIT Mavyret note PLAN OF CARE VITAL SIGNS MEDICATIONS [...]
--- OUTSIDE RECORDS SUMMARY | 2018-01-13 21:51 | XMS REPORT ---
Author Author JUAN CARLOS SHEFFIELD Organization [facility] Address [address] 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 Active 307988842 Problem Hypertension I10 Active 44919249 Problem Arthritis M19.90 Active 0464207 Problem 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 Active 45795868 Problem Anxiety F41.9 Active 24326476 Problem Unspecified episodic mood disorder F39 Active 91704852 Problem Left hip pain M25.552 Active 33731795 ALLERGIES No Information ENCOUNTERS Encounter Location Date Diagnosis [facility] [address] [facility] [id number] [address] Nov, [facility] [address] [facility] [id number], [place] [address] Oct, [facility] [address] [facility] [id number], [place] [address] Oct, [facility] [id number] [place] [address] 73342- 5765 Oct, Arthritis M19.90 and Unspecified episodic mood disorder F39 [facility] [id number] [place] [address] 95968- 0516 Sep, Chronic hepatitis C without hepatic coma B18.2 [facility] [id number] [place] [address] 86793- 5834 Sep, Gastroesophageal reflux disease, esophagitis presence not specified K21.9 and Other chronic pain G89.29 [facility] [id number] [place] [address] 91103- 8700 Sep, [facility] [id number] [place] [address] 18847- 5116 Sep, [facility] [id number] [place] [address] 35463- 3272 Sep, Chronic hepatitis C without hepatic coma B18.2 [facility] [id number] [place] [address] 32817- 2536 Sep, 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 [facility] [id number] [place] [address] 62038- 9561 Sep, Arthritis M19.90 [facility] [id number] [place] [address] 41243- 3990 Sep, [facility] [id number] [place] [address] 12012- 4116 Sep, Unspecified episodic mood disorder F39 [facility] [id number] [place] [address] 33355- 4988 Aug, [facility] [id number] [place] [address] [id number] Aug, [facility] [id number] [place] [address] 58857- 5662 Aug, Arthritis M19.90 [facility] [id number] [place] [address] 45234- 0584 Aug, [facility] [id number] [place] [address] 07315- 0846 Aug, Obesity (BMI 30.0-34.9) E66.9 ; Unspecified episodic mood disorder F39 and Hypertension I10 [facility] [id number] [place] [address] 21739- 0361 Aug, Unspecified episodic mood disorder F39 [facility] [id number] [place] [address] 79040- 6617 Aug, [facility] [id number] [place] [address] 50814- 8101 Jul, Unspecified episodic mood disorder F39 [facility] [id number] [place] [address] 18945- 8157 Jul, [facility] [id number] [place] [address] 27109- 3486 Jul, Arthritis M19.90 [facility] [id number] [place] [address] 93789- 2253 12 Jul, 2017 Left hip pain M25.552 ; Hypertension I10 ; Other obesity due to excess calories E66.09 and Body mass index (BMI) of 34.0-34.9 in adult Z68.34 [facility] [id number] [place] [address] 71202- 1913 Jul, Unspecified episodic mood disorder F39 [facility] [id number] [place] [address] 22057- 2312 June, Gastroesophageal reflux disease, esophagitis presence not specified K21.9 [facility] [id number] [place] [address] 35484- 8460 June, [facility] [id number] [place] [address] 90052- 1956 June, [facility] [address] [address] 6990 June, Arthritis M19.90 [facility] [address] [place] [address] 04659- 5794 June, [facility] [address] [address] 8134 June, [facility] [id number] [place] [address] 67296- 6827 June, Unspecified episodic mood disorder F39 [facility] [address] [place] [address] 76656- 2785 May, Unspecified episodic mood disorder F39 [facility] [address] [place] [address] 09408- 3178 May, [facility] [id number] [place] [address] 58283- 7559 May, Arthritis M19.90 [facility] [address] [address] May, Dysuria R30.0 ; Abscess L02.91 and Acute cystitis without hematuria N30.00 [facility] [address] [address] 3947 May, Other disorder of impulse control F63.89 ; Unspecified episodic mood disorder F39 ; Combined drug dependence excluding opioids, 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 ; Anxiety F41.9 and Other psychoactive substance dependence, 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 [facility] [address] [address] 5553 May, [facility] [address] [place] [address] 57862- 2783 May, Other disorder of impulse control F63.89 ; Unspecified episodic mood disorder F39 ; Combined drug dependence excluding opioids, 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 ; Other psychoactive substance dependence, 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 and Anxiety F41.9 [facility] [id number] [place] [address] 84560- 9143 May, Other chronic pain G89.29 ; Left hip pain M25.552 ; Hypertension I10 ; 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, 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 and Unspecified episodic mood disorder F39 [facility] [id number] [place] [address] 57808- 8213 Apr, [facility] [id number] [place] [address] 56954 -9234 Apr, Neck pain M54.2 ; Left hip pain M25.552 and Fall, initial encounter W19.XXXA [facility] [address] 68506- 7105 Apr, Unspecified episodic mood disorder F39 ; Combined drug dependence excluding opioids, 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 ; Anxiety F41.9 ; Other psychoactive substance dependence, 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 and Other disorder of impulse control F63.89 [facility] [id number] [place] [address] 43964- 3053 Apr, [facility] [id number] [place] [address] 70024- 3579 Apr, Arthritis M19.90 and Unspecified episodic mood disorder F39 [facility] [id number] [place] [address] 00150- 6436 Apr, Unspecified episodic mood disorder F39 [facility] [id number] [place] [address] 97957- 5388 Apr, [facility] [id number] [place] [address] 27354- 1755 Apr, [facility] [id number] [place] [address] 69348- 1618 07 Apr, 2017 Unspecified episodic mood disorder F39 ; Combined drug dependence excluding opioids, 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 ; Anxiety F41.9 ; Other psychoactive substance dependence, 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 and Other disorder of impulse control F63.89 [place] [address] [address]- 1636 Mar, Unspecified episodic mood disorder F39 [facility] [id number] [place] [address] 37202- 6876 Mar, Gastroesophageal reflux disease, esophagitis presence not specified K21.9 [facility] [id number] [place] [address] 65444- 2666 Mar, Arthritis M19.90 and Unspecified episodic mood disorder F39 [facility] [id number] [place] [address] 60503- 6576 Feb, [facility] [id number] [place] [address] 20085- 6706 Feb, [facility] [id number] [place] [address] 49539- 5366 Feb, [facility] [id number] [place] [address] 83854 2546 Feb, Arthritis M19.90 [facility] [id number] [place] [address] 14908- 0356 Feb, Non-pressure chronic ulcer of right calf, 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 ; Unspecified episodic mood disorder F39 and Left hip pain M25.552 [facility] [address] [address]- 5736 Feb, [facility] [id number] [place] [address] 57040 2546 Feb, [facility] [address] [address] 2546 Jan, Arthritis M19.90 [facility] [id number] [place] [address] 42955 2546 Jan, Left hip pain M25.552 and Non-pressure chronic ulcer of right calf, 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 [facility] [id number] [place] [address] 44382- 1033 Jan, Chronic hepatitis C without hepatic coma B18.2 [facility] [id number] [place] [address] 03924- 8733 Jan, Encounter for immunization Z23 ; Venous insufficiency ( chronic) (peripheral) I87.2 ; Non-pressure chronic ulcer of unspecified calf limited to breakdown of skin L97.201 and Gastroesophageal reflux disease, esophagitis presence not specified K21.9 [facility] [id number] [place] [address] 21634- 2817 Jan, [facility] [id number] [place] [address] 45896- 8918 Jan, Chronic hepatitis C without hepatic coma B18.2 and Encounter for immunization Z23 [facility] [id number] [place] [address] 36393- 2913 Jan, Arthritis M19.90 [facility] [id number] [place] [address] 29462- 5018 Jan, [facility] [id number] [place] [address] 77326- 6165 Dec, [facility] [id number] [place] [address] 60490- 7488 Dec, Unspecified episodic mood disorder F39 [facility] [id number] [place] [address] 96612- 6642 Dec, Arthritis M19.90 [facility] [id number] [place] [address] 92541- 2392 Dec, Arthritis M19.90 [facility] [id number] [place] [address] 18946- 3496 Nov, [facility] [id number] [place] [address] 91278- 9559 Nov, [facility] [id number] [place] [address] 53001- 2805 Nov, Other psychoactive substance dependence, 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 ; 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, 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 and Chronic hepatitis C without hepatic coma B18.2 [facility] [id number] [place] [address] 57678- 3336 Nov, Arthritis M19.90 [facility] [id number] [place] [address] 93073 -9674 Oct, Partial thickness burn of abdomen, initial encounter T21.22XA [facility] [id number] [place] [address] 17091- 5651 Oct, [facility] [address] 74279- 0976 Sep, Arthritis M19.90 [facility] [id number] [place] [address] 56934- 4174 Sep, [facility] [id number] [place] [address] 37744- 2382 Sep, [facility] [id number] [place] [address] 90637- 6603 Sep, Unspecified episodic mood disorder F39 ; Chronic hepatitis C without hepatic coma B18.2 and Left hip pain M25.552 [facility] [id number] [place] [address] 01410- 6695 Sep, Arthritis M19.90 and Left hip pain M25.552 [facility] [id number] [place] [address] 65451- 6182 Aug, [facility] [id number] [place] [address] 38374- 9075 Aug, [facility] [id number] [place] [address] 11838- 1948 Aug, Chronic hepatitis C without hepatic coma B18.2 [facility] [id number] [place] [address] 74615- 9869 Aug, [facility] [id number] [place] [address] 98030- 6198 Aug, Chronic hepatitis C without hepatic coma B18.2 [facility] [id number] [place] [address] 62465- 2505 Aug, 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, 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 [facility] [address] 95873- 7754 Aug, [facility] [id number] [place] [address] 03203- 4737 Aug, Chronic hepatitis C without hepatic coma B18.2 and Hypertension I10 [facility] [id number] [place] [address] 82233- 4127 Jul, [facility] [id number] [place] [address] 64757- 6788 June, [facility] [address] 64952- 6842 Apr, Fibromyalgia M79.7 ; Left hip pain M25.552 and Decubitus ulcer of sacral region, stage 1 L89.151 [facility] [id number] [place] [address] 75030- 1503 Apr, [facility] [id number] [place] [address] 85648- 8138 Apr, [facility] [id number] [place] [address] 71664- 6482 Feb, [facility] [id number] [place] [address] 60147- 5125 Dec, Anxiety F41.9 ; Combined drug dependence excluding opioids, 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 and Unspecified episodic mood disorder F39 [facility] [id number] [place] [address] 94006- 2325 Dec, [facility] [address] 52367- 7888 Nov, [facility] [id number] [place] [address] 95664- 4866 Nov, [facility] [id number] [place] [address] 49015- 2892 Nov, Other disorder of impulse control F63.89 and Anxiety F41.9 [facility] [id number] [place] [address] 54769- 6616 Oct, [facility] [id number] [place] [address] 30908 -1417 14 Oct, 2015 Open wound of left thigh, initial encounter S71.102A [facility] [id number] [place] [address] 35053- 2971 Oct, [facility] [id number] [place] [address] 62262- 3205 Sep, Unspecified episodic mood disorder F39 ; Other disorder of impulse control 312.39 ; Combined drug dependence excluding opioids, 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 and Anxiety F41.9 [facility] [id number] [place] [address] 40892- 6963 Sep, Other disorder of impulse control 312.39 ; Combined drug dependence excluding opioids, 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 ; Anxiety F41.9 and Unspecified episodic mood disorder F39 [facility] [address] [place] [address] 29606- 5384 Sep, Other chronic pain G89.29 [facility] [address] [place] [address] 34927- 2718 Sep, [facility] [id number] [place] [address] 25174- 0280 Sep, [facility] [address] [place] [address] 37414- 6097 Aug, [facility] [id number] [place] [address] 48653- 4114 Aug, [facility] [address] [address]- 5044 Aug, [facility] [id number] [place] [address] 30331- 6147 Jul, [facility] [id number] [place] [address] 86512- 9480 Jul, [facility] [id number] [place] [address] 07703- 8957 Jul, [facility] [id number] [place] [address] 27906- 1158 Jul, Arthritis M19.90 ; Chronic hepatitis C without hepatic coma B18.2 and Left hip pain M25.552 [facility] [id number] [place] [address] 30969- 2980 Jul, Left knee pain M25.562 [facility] [id number] [place] [address] 06747- 5956 Jul, Combined drug dependence excluding opioids, 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 ; Anxiety F41.9 ; Other disorder of impulse control 312.39 and Unspecified episodic mood disorder F39 [facility] [address] [place] [address] 76583- 3814 Jul, Left knee pain M25.562 [facility] [id number] [place] [address] 92029- 5132 Jul, Left knee pain M25.562 and Left hip pain M25.552 [facility] [address] [place] [address] 65401- 0241 Jul, [facility] [id number] [place] [address] 62648- 7968 June, [facility] [address] [place] [address] 02557- 0448 June, Combinations of drug dependence excluding opioid type drug, unspecified abuse 304.80 ; Other disorder of impulse control 312.39 ; Unspecified episodic mood disorder F39 and Anxiety F41.9 [facility] [id number] [place] [address] 57202- 8607 June, Other fatigue R53.83 ; Headache R51 and Left knee pain M25.562 [facility] [id number] [place] [address] 81204- 9406 June, Unspecified episodic mood disorder F39 ; Combinations of drug dependence excluding opioid type drug, unspecified abuse 304.80 ; Other disorder of impulse control 312.39 and Anxiety F41.9 [facility] [id number] [place] [address] 50838- 2012 June, Anxiety F41.9 [facility] [id number] [place] [address] 57057- 3173 June, Pain in left knee M25.562 [facility] [id number] [place] [address] 87994- 3676 June, Anxiety F41.9 and Combinations of drug dependence excluding opioid type drug, unspecified abuse 304.80 [facility] [id number] [place] [address] 39077- 9512 June, Unspecified episodic mood disorder 296.90 ; Combinations of drug dependence excluding opioid type drug, unspecified abuse 304.80 and Other disorder of impulse control 312.39 [facility] [id number] [place] [address] 99129- 4148 June, Anxiety F41.9 and Unspecified episodic mood disorder 296.90 [place] [place] [address] [place] [address] 37057- 4331 May, Arthritis M19.90 [facility] [id number] [place] [address] 55940- 7792 May, Arthritis M19.90 [facility] [address] [place] [address] 98517- 7740 May, Anxiety F41.9 ; Combinations of drug dependence excluding opioid type drug, unspecified abuse 304.80 and Other disorder of impulse control 312.39 [facility] [place] [address] [address]- 5744 18 May, 2015 Left knee pain M25.562 [place] [address] [address]- 8757 14 May, 2015 Arthritis M19.90 [facility] [id number] [place] [address] 18729- 6357 May, [facility] [address] [place] [address] 00273- 9499 May, Anxiety F41.9 ; Unspecified episodic mood disorder 296.90 ; Combinations of drug dependence excluding opioid type drug, unspecified abuse 304.80 and Other disorder of impulse control 312.39 [facility] [address] [address]- 7354 May, Left knee pain M25.562 [facility] [address] [address]- 7514 11 May, 2015 Left knee pain M25.562 ; Combinations of drug dependence excluding opioid type drug, unspecified abuse 304.80 ; Other disorder of impulse control 312.39 ; Fibromyalgia M79.7 ; Hypertension I10 ; Unspecified episodic mood disorder 296.90 and Left hip pain M25.552 [facility] [id number], [place] [address] May, Unspecified episodic mood disorder 296.90 ; Other disorder of impulse control 312.39 ; Combinations of drug dependence excluding opioid type drug, unspecified abuse 304.80 and Anxiety F41.9 [place] [id number] [place] [id number] May, Left knee pain M25.562 ; Combinations of drug dependence excluding opioid type drug, unspecified abuse 304.80 ; Other disorder of impulse control 312.39 ; Fibromyalgia M79.7 ; Hypertension I10 ; Unspecified episodic mood disorder 296.90 and Left hip pain M25.552 [place] [id number], [place] [address] May, Anxiety F41.9 ; Unspecified episodic mood disorder 296.90 ; Other disorder of impulse control 312.39 and Combinations of drug dependence excluding opioid type drug, unspecified abuse 304.80 [facility] [id number] [place] [address] 63339- 3433 30 Apr, 2015 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 and 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, implants and grafts, initial encounter T84.82XA [facility] [id number] [place] [address] 90520- 9281 28 Apr, 2015 Anxiety F41.9 ; Unspecified episodic mood disorder 296.90 ; Combinations of drug dependence excluding opioid type drug, unspecified abuse 304.80 and Other disorder of impulse control 312.39 [facility] [id number] [place] [address] 10999- 6049 Apr, Arthritis M19.90 [facility] [id number] [place] [address] 49278- 2285 Apr, Anxiety F41.9 ; Unspecified episodic mood disorder 296.90 ; Combinations of drug dependence excluding opioid type drug, unspecified abuse 304.80 and Other disorder of impulse control 312.39 [facility] [id number] [place] [address] 59672- 2276 17 Apr, 2015 Arthritis M19.90 [facility] [id number] [place] [address] 74277- 9004 15 Apr, 2015 [facility] [id number] [place] [address] 54587- 1570 15 Apr, 2015 [place] [id number] [place] [address] 52730- 3962 14 Apr, 2015 Unspecified episodic mood disorder 296.90 ; Combinations of drug dependence excluding opioid type drug, unspecified abuse 304.80 ; Other disorder of impulse control 312.39 and Anxiety F41.9 [facility] [id number] [place] [address] 06585 -4598 Apr, Left knee pain M25.562 [place] [id number] [place] [address] 26052- 6407 Apr, [place] [id number] [place] [address] Mar, Unspecified episodic mood disorder 296.90 ; Anxiety F41.9 ; Other disorder of impulse control 312.39 and Combinations of drug dependence excluding opioid type drug, unspecified abuse 304.80 [place] [id number] [place] [address] 68277- 0298 Mar, Hyperpigmentation L81.9 [address] [id number] [place] [address] 08015- 1893 Mar, Arthritis M19.90 and Anxiety F41.[address] 34441- 8087 Mar, Unspecified episodic mood disorder F39 ; Combined drug dependence excluding opioids, 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 ; Other disorder of impulse control F63.89 and Anxiety F41.9 [place] [id number] [place] [address] 74298- 2826 12 Mar, 2015 Well woman exam Z01.419 ; Other fatigue R53.83 ; Hot flashes N95.1 ; Depression, unspecified depression type F32.9 and Body mass index (BMI) of 23.0-23.9 in adult Z68.23 [place] [id number] [place] [address] 21087- 3613 11 Mar, 2015 Unspecified episodic mood disorder 296.90 ; Other disorder of impulse control 312.39 and Anxiety F41.9 [address] [id number] [place] [address] 65736- 5278 11 Mar, 2015 Well woman exam Z01.419 [...] of breast Z12.39 and Limited mobility Z74.09 [place] [address] 33990- 8548 Mar, [address] 70142- 6913 Mar, [address] 96072- 9074 Mar, [address] 67726- 4553 Mar, Other specified complication of internal orthopedic prosthetic devices, implants and grafts, initial encounter T84.89XA ; Fibromyalgia M79.7 ; Hypertension I10 ; Anemia D64.9 ; Insomnia G47.00 ; Anxiety F41.9 ; Arthritis M19.90 and Migraine G43.909 [id number] [place] [address] 79081- 8839 Mar, [address] 56106- 7234 Feb, [address] [id number] [place] [address] 68920- 7817 Feb, Arthritis M19.90 and Anxiety F41.[address] 69586- 9159 Feb, [place] [id number] [place] [address] 25583- 7472 Feb, [place] [id number] [place] [address] 1954 Feb, [facility] [address] [place] [address]- 4406 Feb, [facility] [address] [place] [place] [address]- 8187 18 Feb, 2015 Anxiety F41.9 [facility] [address] [place] [place] [address]- 7082 15 Feb, 2015 [facility] [address] [facility] [id number] [place] [address]- 9395 Feb, [facility] [id number] [place] [address], [place] [address]- 2654 Feb, 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 and Fibromyalgia M79.7 [facility] [address] [place] [place] [address]- 0059 Feb, [facility] [address] [address]- 9239 Jan, [facility] [address] [place] [address]- 2190 Jan, [facility] [address] [place] [place] [address]- 0597 Jan, [facility] [address] [address]- 8549 24 Jan, 2015 [facility] [address] [address]- 3103 16 Jan, 2015 [facility] [address] [place] [place] [address]- 6125 08 Jan, 2015 [facility] [address] [id number] [place] [place] [address]- 0143 07 Jan, 2015 [facility] [address] [id number] [place] [place] [address]- 5839 07 Jan, 2015 [facility] [address] [address]- 6767 Dec, [facility] [id number] [place] [address] 42945- 0576 Dec, Left knee pain M25.562 [facility] [id number] [place] [address] 66049- 2058 Dec, Left knee pain M25.562 [facility] [id number] [place] [address] 87539- 5308 16 Dec, 2014 Fibromyalgia M79.7 ; Hypertension I10 and Arthritis M19.90 [facility] [id number] [place] [address] 68441- 2255 Dec, [facility] [id number] [place] [address] 23488- 5718 Dec, [facility] [id number] [place] [address] 87779- 0306 Dec, [facility] [id number] [place] [address] 88024- 8182 Dec, [facility] [id number] [place] [address] 71015- 8609 Nov, [facility] [id number] [place] [address] 30466- 7807 Nov, [facility] [id number] [place] [address] 28467- 3238 Nov, [facility] [id number] [place] [address] 33822- 9941 Nov, Hypertension I10 [facility] [id number] [place] [address] 90507- 6117 Oct, [facility] [address] [address]- 5516 Oct, [facility] [id number] [place] [address] 570426- 6031 Oct, [facility] [address] [id number] [place] [address]- 6075 Oct, [facility] [address] [id number] [place] [address]- 5256 Oct, [facility] [address] [id number] [place] [address]- 7861 Sep, [facility] [address] [id number] [place] [address]- 5091 Sep, [facility] [address] [id number] [place] [address]- 3280 Sep, Hip pain associated with recalled total hip arthroplasty hardware 996.77 [facility] [address] [id number] [place] [address]- 0430 Sep, [facility] [address] [id number] [place] [address]- 9892 Sep, [facility] [address] [id number] [place] [address]- 1362 Sep, [facility] [address] [id number] [place] [address]- 9179 Aug, [facility] [address] [facility] [id number] [place] [address]- 8187 Jul, [facility] [address] [id number] [place] [address]- 5882 June, [facility] [place] [facility] [address] [id number] [place] [address]- 4436 June, [facility] [place] [facility] [address] [id number] [place] [address]- 1753 June, [facility] [place] [facility] [address] [id number] [place] [address]- 7838 June, [facility] [place] [facility] [address] [id number] [place] [address]- 2713 June, [facility] [place] [facility] [address] [id number] [place] [address]- 1605 June, [facility] [place] [facility] [address] [id number] [place] [address]- 4765 30 May, 2014 [facility] [place] [facility] [address] [id number] [place] [address]- 9218 14 May, 2014 [facility] [place] [facility] [address] [id number] [place] [address]- 6873 May, [facility] [place] [facility] [address] [id number] [place] [address]- 3244 30 Apr, 2014 [facility] [place] [facility] [address] [id number] [place] [address]- 1922 30 Apr, 2014 [facility] [place] [facility] [address] [id number] [place] [address]- 0338 Apr, [facility] [place] [facility] [address] [id number] [place] [address]- 3273 Apr, [facility] [place] [facility] [address] [id number] [place] [address]- 3394 Apr, [facility] [place] [facility] [address] [id number] [place] [address]- 8546 Apr, [facility] [place] [facility] [address] [id number] [place] [address]- 8589 Apr, [facility] [place] [facility] [address] [id number] [place] [address]- 9610 Apr, [facility] [place] [facility] [address] [id number] [place] [address]- 4667 10 Apr, 2014 [facility] [place] [facility] [address] [id number] [place] [address]- 6579 05 Apr, 2014 [facility] [place] [facility] [address] [id number] [place] [address]- 7108 05 Apr, 2014 [facility] [place] [facility] [address] [id number] [place] [address]- 9047 Mar, 2014 [facility] [address] [id number] [place] [address]- 8753 Mar, 2014 [facility] [place] [facility] [address] [id number] [place] 2596 Mar, 2014 [facility] [place] [facility] [address] [id number] [place] [address]- 6286 16 Mar, 2014 [facility] [place] [facility] [address] [id number] [place] [address]- 6912 Mar, 2014 [facility] [place] [facility] [address] [id number] [place] [address]- 3094 Mar, [facility] [place] [facility] [address] [id number] [place] [address]- 3412 Feb, [facility] [address] [facility] [id number] [place] [address]- 8228 Feb, [facility] [place] [facility] [address] [id number] [place] [address]- 2663 Feb, [facility] [place] [facility] [address] [id number] [place] [address]- 1815 Feb, [facility] [place] [facility] [address] [facility] [id number] [place] [address]- 1453 Jan, [facility] [place] [facility] [address] [id number] [place] [address]- 3157 Jan, [facility] [place] [facility] [address] [id number] [place] [address]- 1937 Jan, [facility] [place] [facility] [address] [id number] [place] [address]- 7670 Jan, [facility] [place] [facility] [address] [id number] [place] [address]- 9494 Dec, [facility] [place] [facility] [address] [id number] [place] 7970 Dec, [facility] [place] [facility] [address] [id number] [place] [address]- 1007 Dec, [facility] [place] [facility] [address] [id number] [place] [address]- 6037 Dec, [facility] [place] [facility] [address] [id number] [place] [address]- 1501 Dec, [facility] [place] [facility] [address] [id number] [place] [address]- 2479 Dec, [facility] [place] [facility] [address] [id number] [place] [address]- 4170 Dec, [facility] [place] [facility] [address] [id number] [place] [address]- 6786 Dec, [facility] [place] [facility] [address] [id number] [place] [address]- 2118 Dec, [facility] [place] [facility] [address] [id number] [place] [address]- 9558 Dec, [facility] [place] [facility] [address] [id number] [place] [address]- 1257 Dec, [facility] [place] [facility] [address] [id number] [place] [address]- 3685 Nov, [facility] [place] [facility] [address] [id number] [place] [address]- 2847 Nov, [facility] [place] [facility] [address] [id number] [place] [address]- 2423 28 Nov, 2013 [facility] [place] [facility] [address] [id number] [place] [address]- 2845 Nov, [facility] [place] [facility] [address] [id number] [place] [address]- 4577 17 Nov, 2013 [facility] [place] [facility] [address] [id number] [place] [address]- 5256 15 Nov, 2013 [facility] [place] [facility] [address] [id number] [place] [address]- 1171 15 Nov, 2013 [facility] [place] [facility] [address] [id number] [place] [address]- 4744 15 Nov, 2013 [facility] [place] [facility] [address] [id number] [place] [address]- 7273 15 Nov, 2013 [facility] [place] [facility] [address] [id number] [place] [address]- 3036 14 Nov, 2013 [facility] [place] [facility] [address] [id number] [place] [address]- 5852 14 Nov, 2013 [facility] [place] [facility] [address] [id number] [place] [address]- 7015 14 Nov, 2013 [facility] [place] [facility] [address] [id number] [place] [address]- 8549 14 Nov, 2013 [facility] [place] [facility] [address] [id number] [place] [address]- 7624 13 Nov, 2013 [facility] [place] [facility] [address] [id number] [address]- 6729 13 Nov, 2013 [facility] [place] [facility] [address] [id number], [place] [address]- 1081 11 Nov, 2013 [facility] [place] [facility] [address] [id number], [place] [address]- 4974 11 Nov, 2013 [facility] [place] [facility] [address] [id number], [place] [address]- 9148 07 Nov, 2013 [facility] [place] [facility] [address] [id number], [place] [address]- 8811 07 Nov, 2013 [facility] [place] [facility] [address] [id number], [place] [address]- 9402 07 Nov, 2013 [facility] [place] [facility] [address] [id number], [place] [address]- 7504 07 Nov, 2013 [facility] [place] [facility] [address] [id number], [place] [address]- 3065 30 Oct, 2013 [facility] [place] [facility] [address] [id number] [place] [address]- 5008 30 Oct, 2013 [facility] [place] [facility] [address] [id number] [place] [address] 2546 26 Oct, 2013 [facility] [place] [facility] [address] [id number] [place] [address] 2546 26 Oct, 2013 [facility] [place] [facility] [address] [id number] [place] [address] 2543 22 Oct, 2013 [facility] [place] [facility] [address] [id number] [place] [address] 2544 22 Oct, 2013 [facility] [place] [facility] [address] [id number] [place] [address]- 7157 18 Oct, 2013 [facility] [place] [facility] [address] [id number] [place] [address]- 5437 18 Oct, 2013 [facility] [place] [facility] [address] [id number] [place] [address]- 4215 18 Oct, 2013 [facility] [place] [facility] [address] [id number] [place] [address]- 6443 18 Oct, 2013 [facility] [place] [facility] [address] [id number] [place] [address] 2544 12 Oct, 2013 [facility] [place] [facility] [address] [id number] [place] [address]- 2541 12 Oct, 2013 [facility] [place] [facility] [address] [id number] [place] [address] 2540 Oct, 2013 [facility] [place] [facility] [address] [id number] [place] [address]- 2545 Oct, 2013 [facility] [place] [facility] [address] [id number] [place] [address]- 5772 Sep, [facility] [place] [facility] [address] [id number] [place] [address]- 3701 Sep, [facility] [place] [facility] [address] [id number] [place] [address]- 5649 Sep, [facility] [place] [facility] [address] [id number] [place] [address]- 5549 Sep, [facility] [place] [facility] [address] [id number] [place] [address]- 9155 Sep, [facility] [place] [facility] [address] [id number] [place] [address]- 7778 Sep, [facility] [place] [facility] [address] [id number] [place] [address]- 5022 Sep, [facility] [place] [facility] [address] [id number] [place] [address]- 2569 Sep, [facility] [place] [facility] [address] [id number] [place] [address]- 2957 Sep, [facility] [place] [facility] [address] [id number] [place] [address]- 7470 Sep, [facility] [place] [facility] [address] [id number] [place] [address]- 7976 Sep, [facility] [place] [facility] [address] [id number] [place] [address]- 3274 Sep, [facility] [place] [facility] [address] [id number] [place] [address]- 9388 Sep, [facility] [place] [facility] [address] [id number] [place] [address]- 8225 Sep, [facility] [place] [facility] [address] [id number] [place] [address]- 9490 Sep, [facility] [place] [facility] [address] [id number] [place] [address]- 9321 Sep, [facility] [place] [facility] [address] [id number] [place] [address]- 6683 Sep, [facility] [place] [facility] [address] [id number] [place] [address]- 8836 Sep, [facility] [place] [facility] [address] [id number] [place] [address]- 1297 Aug, [facility] [place] [facility] [address] [id number] [place] [address]- 7384 Aug, [facility] [place] [facility] [address] [id number] [place] [address]- 5087 Aug, [facility] [place] [facility] [address] [id number] [place] [address]- 9870 Aug, [facility] [place] [facility] [address] [id number] [place] [address]- 0310 Aug, [facility] [place] [facility] [address] [id number] [place] [address]- 3108 Aug, [facility] [place] [facility] [address] [id number] [place] [address]- 2841 Jul, [facility] [place] [facility] [address] [id number] [place] [address]- 3518 Jul, [facility] [place] [facility] [address] [id number] [place] [address]- 1252 Jul, [facility] [place] [facility] [address] [id number] [place] [address]- 9967 Jul, [facility] [place] [facility] [address] [id number] [place] [address]- 2795 June, [facility] [place] [facility] [address] [id number] [place] [address]- 4773 June, [facility] [place] [facility] [address] [id number] [place] [address]- 4841 June, [facility] [place] [facility] [address] [id number] [place] [address]- 7620 June, [facility] [place] [facility] [address] [id number] [place] [address]- 9300 June, [facility] [place] [facility] [address] [id number] [place] [address]- 5308 June, [facility] [place] [facility] [address] [id number] [place] [address]- 4596 June, [facility] [address] [id number] [place] [address]- 6087 May, [facility] [place] [facility] [address] [id number] [place] [address] May, [facility] [address] [id number] [place] [address] May, [facility] [place] [facility] [address] [id number] [place] [address] May, [facility] [place] [facility] [address] [id number] [place] [address] May, [facility] [place] [facility] [address] [id number] [place] [address] May, [facility] [place] [facility] [address] [id number] [place] [address] 31 Apr, 2013 [facility] [address] [id number] [place] [address] 31 Apr, 2013 [facility] [place] [facility] [address] [id number] [place] [address] 28 Apr, 2013 [facility] [address] [id number] [place] [address] 28 Apr, 2013 [facility] [place] [facility] [address] [id number] [place] [address]- [address] 14 Apr, 2013 [facility] [place] [facility] [address] [id number] [place] [address] 14 Apr, 2013 [facility] [place] [facility] [address] [id number] [place] [address]- [address]65 12 Apr, 2013 [facility] [place] [facility] [address] [id number] [place] [address]- [address]286 12 Apr, 2013 [facility] [place] [facility] [address] [id number] [place] [address] Apr, [facility] [place] [facility] [address] [id number] [place] [address]- 9767 Apr, [facility] [place] [facility] [address] [id number] [place] [address]- [address] Apr, [facility] [place] [facility] [address] [id number] [place] [address]- [address]377 Apr, [facility] [place] [facility] [address] [id number] [place] [address]- 280[address] Apr, [facility] [place] [facility] [address] [id number] [place] [address]- 9438 Apr, [facility] [place] [facility] [address] [id number] [place] [address] Mar, [facility] [place] [facility] [address] [id number] [place] [address]- [address] Mar, [facility] [place] [facility] [address] [id number] [place] [address] Mar, [facility] [place] [facility] [address] [id number] [place] [address]- [address] Feb, [facility] [place] [facility] [address] [id number] [place] [address] Feb, [facility] [place] [facility] [address] [id number] [place] [address]- [address] Feb, [facility] [place] [facility] [address] [id number] [place] [address]- [address] Feb, [facility] [place] [facility] [address] [id number] [place] [address]- [address] Feb, [facility] [place] [facility] [address] [id number] [place] [address]- 2066 Feb, [facility] [place] [facility] [address] [id number] [place] [address]- [address] Feb, [facility] [place] [facility] [address] [id number] [place] [address]- [address]268 Feb, [facility] [address] [id number] [place] [address]- [address] Feb, [facility] [address] [id number] [place] [address]- 3546 Feb, [facility] [address] [id number] [place] [address]- [address] Jan, [facility] [place] [facility] [address] [id number] [place] [address]- [address] 30 Jan, 2013 [facility] [address] [id number] [place] [address]- [address] Jan, [facility] [address] [id number] [place] [address]- [address] Jan, [facility] [address] [id number] [place] [address]- 1627 Jan, [facility] [address] [id number] [place] [address]- [address]36 24 Jan, 2013 [facility] [address] [id number] [place] [address]- [address]15 Jan, [facility] [address] [id number] [place] [address]- [address] Jan, [facility] [address] [id number] [place] [address]- 8736 Jan, [facility] [place] [facility] [address] [id number] [place] [address]- [address]48 19 Jan, 2013 [facility] [place] [facility] [address] [id number] [place] [address]- [address]39 17 Jan, 2013 [facility] [place] [facility] [address] [id number] [place] [address] 17 Jan, 2013 [facility] [address] [id number] [place] [address]- [address] Jan, [facility] [place] [facility] [address] [id number] [place] [address]- [address] Jan, [facility] [address] [id number] [place] [address]- 1448 Jan, [facility] [address] [id number] [place] [address] Jan, [facility] [address] [id number] [place] [address]- 2692 Jan, [facility] [address] [id number] [place] [address]- 3568 Jan, [facility] [address] [id number] [place] [address]- [address]157 Jan, [facility] [address] [id number] [place] [address] Jan, [facility] [address] [id number] [place] [address] Jan, [facility] [address] [id number] [place] [address] Dec, [facility] [address] [id number] [place] [address] Dec, [facility] [address] [id number] [place] [address] 64[address] Dec, [facility] [place] [facility] [address] [id number] [place] [address] 5630 Dec, [facility] [place] [facility] [address] [id number] [place] [address] 8119 Dec, [facility] [place] [facility] [address] [id number] [place] [address]- 1282 Dec, [facility] [place] [facility] [address] [id number] [place] [address]- 5674 Dec, [facility] [place] [facility] [address] [id number] [place] [address] 3932 Dec, [facility] [place] [facility] [address] [id number] [place] [address]- 7899 Dec, [facility] [place] [facility] [address] [id number] [place] [address] Dec, [facility] [place] [facility] [address] [id number] [place] [address] 8850 Nov, [facility] [place] [facility] [address] [id number] [place] [address]- 7537 Nov, [facility] [place] [facility] [address] [id number] [place] [address] 3242 Nov, [facility] [place] [facility] [address] [id number] [place] [address]- 0961 Nov, [facility] [place] [facility] [address] [id number] [place] [address]- 6184 Nov, [facility] [place] [facility] [address] [id number] [place] [address]- 9742 Nov, [facility] [place] [facility] [address] [id number] [place] [address]- 1224 Nov, [facility] [place] [facility] [address] [id number] [place] [address]- 0183 Nov, [facility] [place] [facility] [address] [id number], [place] [address] Nov, [facility] [place] [facility] [address] [id number], [place] [address] Nov, [facility] [place] [facility] [address] [id number] [place] [address]- 2725 Oct, [facility] [place] [facility] [address] [id number] [place] [address]- 5053 Oct, [facility] [place] [facility] [address] [id number] [place] [address]- 5148 Oct, [facility] [place] [facility] [address] [id number] [place] [address]- 2546 Oct, [facility] [address] [id number] [place] [address]- 6529 Oct, [facility] [address] [id number] [place] [address]- 2546 Sep, [facility] [address] [id number] [place] [address]- 2546 Sep, [facility] [address] [id number] [place] [address] 46[address] Aug, [facility] [address] [id number] [place] [address]- 1853 Aug, [facility] [address] [id number] [place] [address]- 6510 Aug, [facility] [address] [id number] [place] [address]- 4521 Aug, [facility] [address] [id number] [place] [address]- 1281 Aug, [facility] [address] [id number] [place] [address]- 3422 Aug, [facility] [address] [id number] [place] [address]- 4841 Aug, [facility] [address] [id number] [place] [address]- 5364 Jul, [facility] [address] [id number] [place] [address]- 2545 Jul, [facility] [place] [facility] [address] [id number] [place] [address]- 5282 June, [facility] [address] [id number] [place] [address]- 2546 June, [facility] [address] [id number] [place] [address]- 2541 June, [facility] [address] [id number] [place] [address]- 6957 June, [facility] [address] [id number] [place] [address]- 2043 June, [facility] [address] [id number] [place] [address]- 3977 June, [facility] [address] [id number] [place] [address]- 0214 June, [facility] [address] [id number] [place] [address] June, [facility] [address] [id number] [place] [address]- 2114 June, [facility] [address] [id number] [place] [address]- 0820 June, [facility] [address] [id number] [place] [address]- 4730 June, [facility] [address] [id number] [place] [address]- 1027 May, [facility] [address] [id number] [place] [address]- 2772 May, [facility] [address] [id number] [place] [address]- 1811 May, [facility] [place] [facility] [address] [id number] [place] [address]- 7689 May, [facility] [place] [facility] [address] [id number] [place] [address]- 9824 Apr, [facility] [place] [facility] [address] [id number] [place] [address]- 4782 Apr, [facility] [place] [facility] [address] [id number] [place] [address]- 9515 Apr, [facility] [place] [facility] [address] [id number] [place] [address]- 1745 Mar, [facility] [address] [id number] [place] [address] 6506 Mar, [facility] [address] [id number] [place] [address]- 5636 Feb, [facility] [address] [id number] [place] [address]- 3536 Feb, [facility] [address] [id number] [place] [address]- 1918 Feb, [facility] [address] [id number] [place] [address]- 7243 Feb, [facility] [address] [id number] [place] [address]- 3600 Feb, [facility] [address] [id number] [place] [address]- 0970 Feb, [facility] [address] [id number] [place] [address]- 5071 Feb, [facility] [address] [id number] [place] [address]- 7788 Jan, [facility] [address] [facility] [id number] [place] [address]- 8617 Jan, [facility] [address] [id number] [place] [address]- 8509 Jan, [facility] [address] [id number] [place] [address]- 7972 Jan, [facility] [address] [id number] [place] [address]- 2036 Jan, [facility] [address] [id number] [place] [address]- 5073 Jan, [facility] [address] [id number] [place] [address]- 9309 Jan, [facility] [place] [facility] [address] [id number] [place] [address]- 5328 Jan, [facility] [place] [facility] [address] [id number] [place] [address]- 5906 Jan, [facility] [place] [facility] [address] [id number] [place] [address]- 1126 Jan, [facility] [place] [facility] [address] [id number] [place] [address]- 7266 Jan, [facility] [place] [facility] [address] [id number] [place] [address]- 5620 Dec, [facility] [place] [facility] [address] [id number] [place] [address]- 0570 Dec, [facility] [place] [facility] [address] [id number] [place] [address]- 0642 Dec, [facility] [place] [facility] [address] [id number] [place] [address]- 0768 Dec, [facility] [place] [facility] [address] [id number] [place] [address]- 4682 Nov, [facility] [place] [facility] [address] [id number] [place] [address]- 1471 Nov, [facility] [place] [facility] [address] [id number] [place] [address]- 0380 Nov, [facility] [place] [facility] [address] [id number] [place] [address]- 6780 27 Oct, 2011 [facility] [place] [facility] [address] [id number] [place] [address]- 1656 24 Oct, 2011 [facility] [place] [facility] [address] [id number] [place] [address]- 8704 21 Oct, 2011 [facility] [place] [facility] [address] [id number] [place] [address]- 4761 10 Oct, 2011 [facility] [place] [facility] [address] [id number] [place] [address]- 8967 07 Oct, 2011 [facility] [place] [facility] [address] [id number] [place] [address]- 5031 04 Oct, 2011 [facility] [place] [facility] [address] [id number] [place] [address]- 5086 04 Oct, 2011 [facility] [place] [facility] [address] [id number] [place] [address]- 5628 Sep, [facility] [place] [facility] [address] [id number] [place] [address]- 7385 Sep, [facility] [place] [facility] [address] [id number] [place] [address]- 5566 Sep, [facility] [place] [facility] [address] [id number] [place] [address]- 4567 Sep, [facility] [place] [facility] [address] [id number] [place] [address]- 1442 Sep, [facility] [place] [facility] [address] [id number] [place] [address]- 3631 Aug, [facility] [place] [facility] [address] [id number] [place] [address]- 3822 Aug, [facility] [place] [facility] [address] [id number] [place] [address]- 0903 Aug, [facility] [place] [facility] [address] [id number] [place] [address]- 0162 16 Aug, 2011 [facility] [place] [facility] [address] [id number] [place] [address]- 3591 Aug, [facility] [place] [facility] [address] [id number] [place] [address]- 4641 Aug, [facility] [place] [facility] [address] [id number] [place] [address]- 9378 Aug, [facility] [place] [facility] [address] [id number] [place] [address]- 6553 Jul, [facility] [place] [facility] [address] [id number] [place] [address]- 0580 26 Jul, 2011 [facility] [address] [id number] [place] [address]- 3382 Jul, [facility] [address] [id number] [place] [address]- 8974 Jul, [facility] [address] [id number] [place] [address]- 4256 Jul, [facility] [address] [id number] [place] [address]- 8577 Jul, [facility] [address] [id number] [place] [address]- 6006 07 Jul, 2011 [facility] [address] [id number] [place] [address]- 5705 06 Jul, 2011 [facility] [address] [id number] [place] [address]- 0893 05 Jul, 2011 [facility] [address] [id number] [place] [address]- 2186 June, [facility] [address] [id number] [place] [address]- 0958 June, [facility] [address] [id number] [place] [address]- 1106 June, [facility] [address] [id number] [place] [address]- 9630 June, [facility] [address] [id number] [place] [address]- 1428 June, [facility] [place] [facility] [address] [id number] [place] [address]- 1722 June, [facility] [place] [facility] [address] [id number] [place] [address]- 8535 June, [facility] [address] [id number] [place] [address]- 2679 June, [facility] [place] [facility] [address] [id number] [place] [address]- 7765 May, [facility] [place] [facility] [address] [id number] [place] [address]- 7468 May, [facility] [place] [facility] [address] [id number] [place] [address]- 3613 May, [facility] [place] [facility] [address] [id number] [place] [address]- 8111 May, [facility] [address] [id number] [place] [address]- 0205 May, [facility] [place] [facility] [address] [id number] [place] [address]- 6593 May, [facility] [address] [id number] [place] [address]- 0817 May, [facility] [address] [id number] [place] [address]- 9792 Apr, [facility] [place] [facility] [address] [id number] [place] [address]- 9721 Apr, [facility] [place] [facility] [address] [id number] [place] [address]- 3565 Apr, [facility] [place] [facility] [address] [id number] [place] [address]- 1466 Apr, [facility] [place] [facility] [address] [id number], [place] [address]- 6622 Apr, [facility] [place] [facility] [address] [id number] [place] [address]- 7379 Apr, [facility] [place] [facility] [address] [id number] [place] [address]- 7966 Apr, [facility] [place] [facility] [address] [id number] [place] [address]- 6625 Mar, [facility] [place] [facility] [address] [id number] [place] [address]- 2625 20 Mar, 2011 [facility] [address] [id number] [place] [address]- 9266 14 Mar, 2011 [facility] [place] [facility] [address] [id number] [place] [address]- 6556 13 Mar, 2011 [facility] [address] [id number] [place] [address]- 1296 Mar, [facility] [place] [facility] [address] [id number] [place] [address] 2546 Mar, [facility] [address] [id number] [place] [address]- 9526 Mar, [facility] [address] [id number] [place] [address]- 5211 Feb, [facility] [address] [id number] [place] [address]- 3597 Feb, [facility] [address] [id number] [place] [address]- 0784 Feb, [facility] [place] [facility] [address] [id number] [place] [address]- 4144 Feb, [facility] [address] [id number] [place] [address]- 9760 Feb, [facility] [address] [id number] [place] [address]- 9116 Feb, [facility] [place] [facility] [address] [id number] [place] [address]- 9992 Feb, [facility] [place] [facility] [address] [id number] [place] [address]- 7257 Feb, [facility] [place] [facility] [address] [id number] [place] [address]- 7046 Feb, [facility] [place] [facility] [address] [id number] [place] [address]- 2092 Feb, [facility] [place] [facility] [address] [id number] [place] [address]- 2096 Jan, [facility] [place] [facility] [address] [id number] [place] [address]- 4586 Jan, [facility] [place] [facility] [address] [id number] [place] [address]- 0910 Jan, [facility] [place] [facility] [address] [id number] [place] [address]- 5518 Jan, [facility] [address] [id number] [place] [address]- 8255 Jan, [facility] [place] [facility] [address] [id number] [place] [address]- 5221 Jan, [facility] [address] [id number] [place] [address]- 5780 Jan, [facility] [address] [id number] [place] [address]- 0712 Jan, [facility] [place] [facility] [address] [id number] [place] [address]- 5478 Jan, [facility] [place] [facility] [address] [id number] [place] [address]- 2289 Jan, [facility] [place] [facility] [address] [id number] [place] [address]- 2573 Jan, [facility] [place] [facility] [address] [id number] [place] [address]- 5012 Dec, [facility] [place] [facility] [address] [id number] [place] [address]- 3203 Dec, [facility] [place] [facility] [address] [id number] [place] [address]- 2631 Dec, [facility] [place] [facility] [address] [id number] [place] [address]- 2688 16 Dec, 2010 [facility] [place] [facility] [address] [id number] [place] [address]- 3433 14 Dec, 2010 [facility] [place] [facility] [address] [id number] [place] [address]- 7397 09 Dec, 2010 [facility] [place] [facility] [address] [id number] [place] 2477 08 Dec, 2010 [facility] [place] [facility] [address] [id number] [place] [address]- 7877 Dec, [facility] [place] [facility] [address] [id number] [place] [address]- 2200 Dec, [facility] [place] [facility] [address] [id number] [place] [address]- 4070 Nov, [facility] [place] [facility] [address] [id number] [place] [address]- 4391 Nov, [facility] [place] [facility] [address] [id number] [place] [address]- 6773 Nov, [facility] [place] [facility] [address] [id number] [place] [address]- 1084 24 Nov, 2010 [facility] [place] [facility] [address] [id number] [place] [address]- 0160 24 Nov, 2010 [facility] [place] [facility] [address] [id number] [place] [address]- 5677 Nov, [facility] [place] [facility] [address] [id number], [place] [address]- 0528 Aug, [facility] [place] [facility] [address] [id number] [place] [address]- 2064 14 Feb, 2010 [facility] [place] [facility] [address] [id number] [place] [address]- 3930 14 Jan, 2010 [facility] [place] [facility] [address] [id number] [place] 5489 Jan, [facility] [place] [facility] [address] [id number] [place] 5240 Jan, [facility] [place] [facility] [address] [id number] [address]- 1826 Jan, [facility] [id number] 9795 Jan, [facility] [id number], [place] [address]- 8855 Dec, [facility] [id number] [address]498 Dec, [facility] [id number], [place] [address]- 3176 Dec, [facility] [id number] [address]89 Dec, [facility] [id number], [place] [address]- 5659 Nov, [facility] [id number], [place] [address]- 9608 Nov, [facility] [address] [id number], [place] [address]- 7021 Nov, IMMUNIZATIONS No Known Immunizations SOCIAL HISTORY Never Assessed REASON FOR VISIT Appeal approved for Hep C meds PLAN OF CARE VITAL SIGNS MEDICATIONS Medication Instructions Dosage Frequency Start Date End Date Duration Status Mavyret 100-40 MG Orally Once a day 3 tablets 24h Sep, 4 weeks Active Pantoprazole Sodium 40 mg Orally Once a day 1 tablet 24h 30 days Active Promethazine HCl 25 MG Orally every 12 hrs 1 tablet as needed 12h 30 Active Fentanyl 50 MCG/HR Transdermal 48 hrs 1 patch to skin Sep, 30 days Active Furosemide 20 mg Orally Once a day 1 tablet 24h Active Aspirin 81 MG Orally Once a day 1 tablet 24h Active Clonidine HCl 0.1 MG Orally twice a day 1 tablet 12h 30 Active Nabumetone 500 mg Orally Twice a day, pc 1 tablet 30 Active Sumatriptan Succinate 100 mg Orally Once a day 1 tablet as needed one time 24h 30 Active Lyrica 150 MG Orally 3 times a day 1 capsule 8h 28 days Active Klonopin 1 MG Orally 3 times a day 1 tablet 8h 30 days Active Tizanidine HCl 4 MG Orally Three times a day 1 tablet as needed 8h May, Active Abilify 2 MG Orally Once a day 2 tablets 24h 30 days Unknown Saxenda (Dose Escalation) 18 mg/3 mL Subcutaneous Once a day 0.6 mg QD x 7 days, 1.2 mg QD x 7 days, 1.8 mg QD x 7 days, 2.4 mg QD x 7 days, then 3 mg QD ( GOAL) 24h Aug, Active Fluoxetine HCl 40 mg Orally Once [...]
--- OUTSIDE RECORDS SUMMARY | 2018-01-13 21:52 | XMS REPORT ---
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 Active 998141685 Problem Hypertension I10 Active 55793107 Problem Arthritis M19.90 Active 3532666 Problem 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 Active 89398693 Problem Anxiety F41.9 Active 34802926 Problem Unspecified episodic mood disorder F39 Active 17920695 Problem Left hip pain M25.552 Active 49607841 ALLERGIES No Information ENCOUNTERS Encounter Location Date Diagnosis [facility] [address] [facility] [id number] [address] Nov, [facility] [address] [id number] [address] Oct, [facility] [address] [facility] [id number] [address] Oct, [facility] [id number] [place] [address] 97231- 4133 Oct, Arthritis M19.90 and Unspecified episodic mood disorder F39 [facility] [id number] [place] [address] 51836- 0605 Sep, Chronic hepatitis C without hepatic coma B18.2 [facility] [id number] [place] [address] 85159- 3782 Sep, Gastroesophageal reflux disease, esophagitis presence not specified K21.9 and Other chronic pain G89.29 [facility] [id number] [place] [address] 14253- 2251 Sep, [facility] [id number] [place] [address] 27128- 7775 Sep, [facility] [id number] [place] [address] 53528- 3157 Sep, Chronic hepatitis C without hepatic coma B18.2 [facility] [id number] [place] [address] 70925- 5033 Sep, 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 [facility] [id number] [place] [address] 57542- 3588 Sep, Arthritis M19.90 [facility] [id number] [place] [address] 74436- 7040 Sep, [facility] [id number] [place] [address] 02558- 1618 Sep, Unspecified episodic mood disorder F39 [facility] [id number] [place] [address] 74884- 3493 Aug, [facility] [id number] [place] [address] [id number] Aug, [facility] [id number] [place] [address] 10143- 6518 Aug, Arthritis M19.90 [facility] [id number] [place] [address] 18915- 7974 Aug, [facility] [id number] [place] [address] 41862- 5753 Aug, Obesity (BMI 30.0-34.9) E66.9 ; Unspecified episodic mood disorder F39 and Hypertension I10 [facility] [id number] [place] [address] 81438- 5726 Aug, Unspecified episodic mood disorder F39 [facility] [id number] [place] [address] 22525- 4678 Aug, [facility] [id number] [place] [address] 71542- 2193 Jul, Unspecified episodic mood disorder F39 [facility] [id number] [place] [address] 99243- 9620 Jul, [facility] [id number] [place] [address] 34098- 5432 Jul, Arthritis M19.90 [facility] [id number] [place] [address] 18930- 9267 Jul, Left hip pain M25.552 ; Hypertension I10 ; Other obesity due to excess calories E66.09 and Body mass index (BMI) of 34.0-34.9 in adult Z68.34 [facility] [id number] [place] [address] 41434- 3952 Jul, Unspecified episodic mood disorder F39 [facility] [id number] [place] [address] 34322- 4599 June, Gastroesophageal reflux disease, esophagitis presence not specified K21.9 [facility] [id number] [place] [address] 27653- 8895 June, [facility] [id number] [place] [address] 54947- 1232 June, [facility] [address] [address] 8016 June, Arthritis M19.90 [facility] [address] [address] 4412 June, [facility] [address] [address] 4896 June, [facility] [id number] [place] [address] 21283- 2056 June, Unspecified episodic mood disorder F39 [facility] [id number] [place] [address] 97963- 6005 May, Unspecified episodic mood disorder F39 [facility] [address] [address] 2440 May, [facility] [id number] [place] [address] 64821- 3992 May, Arthritis M19.90 [facility] [address] [address] May, Dysuria R30.0 ; Abscess L02.91 and Acute cystitis without hematuria N30.00 [facility] [address] [address] 0844 May, Other disorder of impulse control 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 ; Unspecified episodic mood disorder F39 ; Combined drug dependence excluding opioids, 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 ; Anxiety F41.9 and Other psychoactive substance dependence, 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 [facility] [address] [address] 5634 May, [facility] [id number] [place] [address] 70499- 0375 May, 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 ; Unspecified episodic mood disorder F39 ; Combined drug dependence excluding opioids, 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 ; Other psychoactive substance dependence, 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 and Anxiety F41.9 [facility] [id number] [place] [address] 76283- 0712 May, Other chronic pain G89.29 ; Left hip pain M25.552 ; Hypertension I10 ; 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, 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 and Unspecified episodic mood disorder F39 [facility] [id number] [place] [address] 11774- 0115 Apr, [facility] [address] [address]18 -8162 Apr, Neck pain M54.2 ; Left hip pain M25.552 and Fall, initial encounter W19.XXXA [facility] [address] 69162- 0211 Apr, Unspecified episodic mood disorder F39 ; Combined drug dependence excluding opioids, 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 ; Anxiety F41.9 ; Other psychoactive substance dependence, 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 and Other disorder of impulse control F63.89 [facility] [id number] [place] [address] 36189- 3834 Apr, [facility] [id number] [place] [address] 05321- 6942 Apr, Arthritis M19.90 and Unspecified episodic mood disorder F39 [facility] [id number] [place] [address] 21340- 5924 Apr, Unspecified episodic mood disorder F39 [facility] [id number] [place] [address] 55886- 1121 Apr, [facility] [id number] [place] [address] 25357- 6689 Apr, [facility] [id number] [place] [address] 28188- 3702 07 Apr, 2017 Unspecified episodic mood disorder F39 ; Combined drug dependence excluding opioids, 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 ; Anxiety F41.9 ; Other psychoactive substance dependence, 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 and Other disorder of impulse control F63.89 [facility] [address] [address] 2546 Mar, Unspecified episodic mood disorder F39 [facility] [id number] [place] [address] 82513- 3246 Mar, Gastroesophageal reflux disease, esophagitis presence not specified K21.9 [facility] [id number] [place] [address] 08449- 5386 Mar, Arthritis M19.90 and Unspecified episodic mood disorder F39 [facility] [id number] [place] [address] 78562 2546 Feb, [facility] [id number] [place] [address] 75817- 9496 Feb, [facility] [id number] [place] [address] 43379- 1776 Feb, [facility] [id number] [place] [address] 47932 2546 Feb, Arthritis M19.90 [facility] [id number] [place] [address] 42786 2546 Feb, Non-pressure chronic ulcer of right calf, 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 ; Unspecified episodic mood disorder F39 and Left hip pain M25.552 [facility] [address] [address] 2546 Feb, [facility] [id number] [place] [address] 41226 2546 Feb, [facility] [id number] [place] [address] 67435 2546 Jan, Arthritis M19.90 [facility] [id number] [place] [address] 65726 2546 Jan, Left hip pain M25.552 and Non-pressure chronic ulcer of right calf, 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 [facility] [id number] [place] [address] 85625- 6156 Jan, Chronic hepatitis C without hepatic coma B18.2 [facility] [id number] [place] [address] 67369- 6743 Jan, Encounter for immunization Z23 ; Venous insufficiency ( chronic) (peripheral) I87.2 ; Non-pressure chronic ulcer of unspecified calf limited to breakdown of skin L97.201 and Gastroesophageal reflux disease, esophagitis presence not specified K21.9 [facility] [id number] [place] [address] 98578- 1735 Jan, [facility] [id number] [place] [address] 55741- 7373 Jan, Chronic hepatitis C without hepatic coma B18.2 and Encounter for immunization Z23 [facility] [id number] [place] [address] 40029- 7495 Jan, Arthritis M19.90 [facility] [id number] [place] [address] 82156- 1919 Jan, [facility] [id number] [place] [address] 31053- 6233 Dec, [facility] [id number] [place] [address] 87822- 5952 Dec, Unspecified episodic mood disorder F39 [facility] [id number] [place] [address] 31071- 8066 Dec, Arthritis M19.90 [facility] [id number] [place] [address] 28958- 7003 Dec, Arthritis M19.90 [facility] [id number] [place] [address] 93616- 3768 Nov, [facility] [id number] [place] [address] 62761- 3786 Nov, [facility] [id number] [place] [address] 87689- 9449 Nov, Other psychoactive substance dependence, 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 ; 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, 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 and Chronic hepatitis C without hepatic coma B18.2 [facility] [id number] [place] [address] 43865- 5493 Nov, Arthritis M19.90 [facility] [id number] [place] [address] 42252 -5917 Oct, Partial thickness burn of abdomen, initial encounter T21.22XA [facility] [id number] [place] [address] 40535- 4173 Oct, [facility] [address] 63433- 0551 Sep, Arthritis M19.90 [facility] [id number] [place] [address] 76218- 1220 Sep, [facility] [id number] [place] [address] 20199- 1382 Sep, [facility] [id number] [place] [address] 80194- 2437 Sep, Unspecified episodic mood disorder F39 ; Chronic hepatitis C without hepatic coma B18.2 and Left hip pain M25.552 [facility] [id number] [place] [address] 67265- 2340 Sep, Arthritis M19.90 and Left hip pain M25.552 [facility] [id number] [place] [address] 07418- 5317 Aug, [facility] [id number] [place] [address] 07009- 4295 Aug, [facility] [id number] [place] [address] 14162- 9644 Aug, Chronic hepatitis C without hepatic coma B18.2 [facility] [id number] [place] [address] 49647- 3336 Aug, [facility] [id number] [place] [address] 44024- 9502 Aug, Chronic hepatitis C without hepatic coma B18.2 [facility] [id number] [place] [address] 05129- 5405 Aug, 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, 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 [facility] [id number] [place] [address] 36768- 0693 Aug, [facility] [id number] [place] [address] 20142- 5988 Aug, Chronic hepatitis C without hepatic coma B18.2 and Hypertension I10 [facility] [id number] [place] [address] 90591- 9422 Jul, [facility] [id number] [place] [address] 07200- 0230 June, [facility] [id number] [place] [address] 29850- 4402 Apr, Fibromyalgia M79.7 ; Left hip pain M25.552 and Decubitus ulcer of sacral region, stage 1 L89.151 [facility] [id number] [place] [address] 06658- 5312 Apr, [facility] [id number] [place] [address] 24231- 3767 Apr, [facility] [id number] [place] [address] 85499- 1038 Feb, [facility] [id number] [place] [address] 09630- 3622 Dec, Anxiety F41.9 ; Combined drug dependence excluding opioids, 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 and Unspecified episodic mood disorder F39 [facility] [id number] [place] [address] 34814- 2719 Dec, [facility] [address] [place] [address]- 3397 Nov, [facility] [id number] [place] [address] 46159- 0649 Nov, [facility] [id number] [place] [address] 97997- 9019 Nov, Other disorder of impulse control F63.89 and Anxiety F41.9 [facility] [id number] [place] [address] 63676- 1473 Oct, [facility] [id number] [place] [address] 46144 -4015 14 Oct, 2015 Open wound of left thigh, initial encounter S71.102A [facility] [id number] [place] [address] 65661- 3753 Oct, [facility] [id number] [place] [address] 57105- 5898 Sep, Unspecified episodic mood disorder F39 ; Other disorder of impulse control 312.39 ; Combined drug dependence excluding opioids, 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 and Anxiety F41.9 [facility] [id number] [place] [address] 03926- 4891 Sep, Other disorder of impulse control 312.39 ; Combined drug dependence excluding opioids, 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 ; Anxiety F41.9 and Unspecified episodic mood disorder F39 [facility] [id number] [place] [address] 48307- 3791 Sep, Other chronic pain G89.29 [facility] [id number] [place] [address] 32656- 4138 Sep, [facility] [id number] [place] [address] 28812- 5660 Sep, [facility] [id number] [place] [address] 07028- 6267 Aug, [facility] [id number] [place] [address] 48757- 2472 Aug, [facility] [address], [place] [address]- 9966 Aug, [facility] [id number] [place] [address] 72489- 3973 Jul, [facility] [id number] [place] [address] 43823- 6392 Jul, [facility] [id number] [place] [address] 26034- 1514 Jul, [facility] [id number] [place] [address] 13088- 7289 Jul, Arthritis M19.90 ; Chronic hepatitis C without hepatic coma B18.2 and Left hip pain M25.552 [facility] [id number] [place] [address] 12816- 9557 Jul, Left knee pain M25.562 [facility] [id number] [place] [address] 87793- 3506 Jul, Combined drug dependence excluding opioids, 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 ; Anxiety F41.9 ; Other disorder of impulse control 312.39 and Unspecified episodic mood disorder F39 [facility] [id number] [place] [address] 68555- 2847 Jul, Left knee pain M25.562 [facility] [id number] [place] [address] 23618- 1932 Jul, Left knee pain M25.562 and Left hip pain M25.552 [facility] [address] [place] [address] 09004- 3021 Jul, [facility] [id number] [place] [address] 66914- 8257 June, [facility] [id number] [place] [address] 03592- 8757 June, Combinations of drug dependence excluding opioid type drug, unspecified abuse 304.80 ; Other disorder of impulse control 312.39 ; Unspecified episodic mood disorder F39 and Anxiety F41.9 [facility] [id number] [place] [address] 58680- 5986 June, Other fatigue R53.83 ; Headache R51 and Left knee pain M25.562 [facility] [id number] [place] [address] 24839- 2227 June, Unspecified episodic mood disorder F39 ; Combinations of drug dependence excluding opioid type drug, unspecified abuse 304.80 ; Other disorder of impulse control 312.39 and Anxiety F41.9 [place] [id number] [place] [address] 57327- 1763 June, Anxiety F41.9 [facility] [facility] [id number] [place] [address] 55994- 4128 June, Pain in left knee M25.562 [facility] [id number] [place] [address] 60953- 7772 June, Anxiety F41.9 and Combinations of drug dependence excluding opioid type drug, unspecified abuse 304.80 [facility] [id number] [place] [address] 46652- 1818 June, Unspecified episodic mood disorder 296.90 ; Combinations of drug dependence excluding opioid type drug, unspecified abuse 304.80 and Other disorder of impulse control 312.39 [facility] [id number] [place] [address] 11436- 4008 June, Anxiety F41.9 and Unspecified episodic mood disorder 296.90 [facility] [id number] [place] [address] 61592- 8547 May, Arthritis M19.90 [facility] [id number] [place] [address] 08675- 1733 May, Arthritis M19.90 [facility] [id number] [place] [address] 59687- 6071 May, Anxiety F41.9 ; Combinations of drug dependence excluding opioid type drug, unspecified abuse 304.80 and Other disorder of impulse control 312.39 [facility] [address] [address]- 9495 18 May, 2015 Left knee pain M25.562 [facility] [address] [address]- 6006 14 May, 2015 Arthritis M19.90 [place] [facility] [id number] [place] [address] 79870- 1190 May, [facility] [id number] [place] [address] 17596- 2217 May, Anxiety F41.9 ; Unspecified episodic mood disorder 296.90 ; Combinations of drug dependence excluding opioid type drug, unspecified abuse 304.80 and Other disorder of impulse control 312.39 [place] [address] [address]- 0070 May, Left knee pain M25.562 [facility] [address] [place] [address] 39583- 7225 11 May, 2015 Left knee pain M25.562 ; Combinations of drug dependence excluding opioid type drug, unspecified abuse 304.80 ; Other disorder of impulse control 312.39 ; Fibromyalgia M79.7 ; Hypertension I10 ; Unspecified episodic mood disorder 296.90 and Left hip pain M25.552 [place] [id number] [place] [address] 94301- 3508 May, Unspecified episodic mood disorder 296.90 ; Other disorder of impulse control 312.39 ; Combinations of drug dependence excluding opioid type drug, unspecified abuse 304.80 and Anxiety F41.9 [place] [facility] [id number] [place] [address] 19093- 3784 May, Left knee pain M25.562 ; Combinations of drug dependence excluding opioid type drug, unspecified abuse 304.80 ; Other disorder of impulse control 312.39 ; Fibromyalgia M79.7 ; Hypertension I10 ; Unspecified episodic mood disorder 296.90 and Left hip pain M25.552 [place] [address] [address]- 6758 04 May, 2015 Anxiety F41.9 ; Unspecified episodic mood disorder 296.90 ; Other disorder of impulse control 312.39 and Combinations of drug dependence excluding opioid type drug, unspecified abuse 304.80 [facility] [id number] [place] [address] 18388- 7015 30 Apr, 2015 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 and 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, implants and grafts, initial encounter T84.82XA [facility] [id number] [place] [id number]- [id number] 28 Apr, 2015 Anxiety F41.9 ; Unspecified episodic mood disorder 296.90 ; Combinations of drug dependence excluding opioid type drug, unspecified abuse 304.80 and Other disorder of impulse control 312.39 [place] [id number] [place] [address]- 2016 Apr, Arthritis M19.90 [facility] [id number] [place] [address]- [address]606 Apr, Anxiety F41.9 ; Unspecified episodic mood disorder 296.90 ; Combinations of drug dependence excluding opioid type drug, unspecified abuse 304.80 and Other disorder of impulse control 312.39 [facility] [id number] [place] [address] 82996- 7845 17 Apr, 2015 Arthritis M19.90 [facility] [id number] [place] [address]- 6159 15 Apr, 2015 [facility] [id number] [place] [address] [address]- 9504 15 Apr, 2015 [place] [id number] [place] [address] 41154- 1081 14 Apr, 2015 Unspecified episodic mood disorder 296.90 ; Combinations of drug dependence excluding opioid type drug, unspecified abuse 304.80 ; Other disorder of impulse control 312.39 and Anxiety F41.9 [facility] [id number] [place] [address] 30700 -2637 Apr, Left knee pain M25.562 [place] [id number] [place] [address] 64874- 0079 Apr, [place] [id number] [place] [address] 59640- 8841 Mar, Unspecified episodic mood disorder 296.90 ; Anxiety F41.9 ; Other disorder of impulse control 312.39 and Combinations of drug dependence excluding opioid type drug, unspecified abuse 304.80 [place] [id number] [place] [address] 02100- 6846 Mar, Hyperpigmentation L81.9 [place] [id number] [place] [address] 05584- 0474 Mar, Arthritis M19.90 and Anxiety F41.[address] 18024- 3317 Mar, Unspecified episodic mood disorder F39 ; Combined drug dependence excluding opioids, 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 ; Other disorder of impulse control F63.89 and Anxiety F41.9 [place] [id number] [place] [address] 48259- 5447 12 Mar, 2015 Well woman exam Z01.419 ; Other fatigue R53.83 ; Hot flashes N95.1 ; Depression, unspecified depression type F32.9 and Body mass index (BMI) of 23.0-23.9 in adult Z68.23 [place] [id number] [place] [address] 46582- 6483 11 Mar, 2015 Unspecified episodic mood disorder 296.90 ; Other disorder of impulse control 312.39 and Anxiety F41.9 [place] [id number] [place] [address] 00873- 3905 11 Mar, 2015 Well woman exam Z01.419 [...] of breast Z12.39 and Limited mobility Z74.[address] 27343- 6685 Mar, [address] 72956- 9102 Mar, [address] 27590- 6890 Mar, [address] 04758- 2130 Mar, Other specified complication of internal orthopedic prosthetic devices, implants and grafts, initial encounter T84.89XA ; Fibromyalgia M79.7 ; Hypertension I10 ; Anemia D64.9 ; Insomnia G47.00 ; Anxiety F41.9 ; Arthritis M19.90 and Migraine G43.909 [place] [id number] [place] [address] 89331- 4304 Mar, [address] 38924- 5525 Feb, [address] 77243- 9227 Feb, Arthritis M19.90 and Anxiety F41.[address] 93899- 5935 Feb, [place] [id number] [place] [address] 94682- 2016 Feb, [id number] [place] [address] 5070 Feb, [facility] [id number] [place] [address]- 5321 Feb, [facility] [id number] [place] [address]- 5844 18 Feb, 2015 Anxiety F41.9 [facility] [id number] [place] [address] 30655- 8179 15 Feb, 2015 [facility] [id number] [address]- 4021 Feb, [facility] [id number] [place] [address], [place] [address]- 6140 Feb, 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 and Fibromyalgia M79.7 [facility] [id number] [address]- 6595 Feb, [facility] [id number] [address]- 9322 Jan, [facility] [id number] [address]- 2652 Jan, [facility] [id number] [place] [place] [address]- 9937 Jan, [facility] [id number] [address]- 9759 24 Jan, 2015 [facility] [id number] [address]- 7155 16 Jan, 2015 [facility] [id number] [address]- 5495 08 Jan, 2015 [facility] [id number] [address]- 5480 07 Jan, 2015 [facility] [id number] [address]- 6926 07 Jan, 2015 [facility] [id number] [address]- 9594 Dec, [facility] [id number] [place] [address] 83763- 7693 Dec, Left knee pain M25.562 [facility] [id number] [place] [address] 65416- 1888 Dec, Left knee pain M25.562 [facility] [id number] [place] [address] 00927- 6737 Dec, Fibromyalgia M79.7 ; Hypertension I10 and Arthritis M19.90 [facility] [id number] [place] [address] 08149- 6013 Dec, [facility] [id number] [place] [address] 76101- 6810 Dec, [facility] [id number] [place] [address] 75597- 3684 Dec, [facility] [id number] [place] [address] 70994- 5610 Dec, [facility] [id number] [place] [address] 74576- 6830 Nov, [facility] [id number] [place] [address] 75454- 2996 Nov, [facility] [id number] [place] [address] 69054- 7164 Nov, [facility] [id number] [place] [address] 33594- 6032 Nov, Hypertension I10 [facility] [id number] [place] [address] 28045- 5863 Oct, [facility] [id number] [address]- 3916 Oct, [facility] [id number] [place] [address] 09441- 6581 Oct, [facility] [place] [facility] [address] [id number] [place] [address]- 1878 Oct, [facility] [place] [facility] [address] [id number] [place] [address]- 2114 Oct, [facility] [place] [facility] [address] [id number] [place] [address]- 4800 Sep, [facility] [place] [facility] [address] [id number] [place] [address]- 0411 Sep, [facility] [place] [facility] [address] [id number] [place] [address]- 5880 Sep, Hip pain associated with recalled total hip arthroplasty hardware 996.77 [facility] [place] [facility] [address] [id number] [place] [address]- 3638 Sep, [facility] [place] [facility] [address] [id number] [place] [address]- 0482 Sep, [facility] [place] [facility] [address] [id number] [place] [address]- 4593 Sep, [facility] [place] [facility] [address] [id number] [place] [address]- 3085 Aug, [facility] [place] [facility] [address] [facility] [id number] [place] [address]- 1567 Jul, [facility] [place] [facility] [address] [id number] [place] [address]- 0683 June, [facility] [place] [facility] [address] [id number] [place] [address]- 5928 June, [facility] [place] [facility] [address] [id number] [place] [address]- 3932 June, [facility] [place] [facility] [address] [id number] [place] [address]- 5626 June, [facility] [place] [facility] [address] [id number] [place] [address]- 3392 June, [facility] [place] [facility] [address] [id number] [place] [address]- 4027 June, [facility] [place] [facility] [address] [id number] [place] [address]- 8510 May, [facility] [place] [facility] [address] [id number] [place] [address]- 0236 May, [facility] [place] [facility] [address] [id number] [place] [address]- 6989 May, [facility] [place] [facility] [address] [id number] [place] [address]- 0557 Apr, [facility] [place] [facility] [address] [id number] [place] [address]- 5726 Apr, [facility] [place] [facility] [address] [id number] [place] [address]- 5673 Apr, [facility] [place] [facility] [address] [id number] [place] [address]- 5079 Apr, [facility] [place] [facility] [address] [id number] [place] [address]- 4254 Apr, [facility] [place] [facility] [address] [id number] [place] [address]- 7853 Apr, [facility] [place] [facility] [address] [id number] [place] [address]- 3504 Apr, [facility] [place] [facility] [address] [id number] [place] [address]- 2674 Apr, [facility] [place] [facility] [address] [id number] [place] [address]- 2114 Apr, [facility] [place] [facility] [address] [id number] [place] [address]- 1599 Apr, [facility] [place] [facility] [address] [id number] [place] [address]- 5462 Apr, [facility] [place] [facility] [address] [id number] [place] [address]- 8701 Mar, 2014 [facility] [place] [facility] [address] [id number] [place] [address]- 5586 Mar, 2014 [facility] [place] [facility] [address] [id number] [place] [address]- 1146 16 Mar, 2014 [facility] [place] [facility] [address] [id number] [place] [address]- 8756 16 Mar, 2014 [facility] [place] [facility] [address] [id number] [place] [address]- 6338 Mar, 2014 [facility] [place] [facility] [address] [id number] [place] [address]- 5938 Mar, [facility] [place] [facility] [address] [id number] [place] [address]- 6317 Feb, [facility] [place] [facility] [address] [id number] [place] [address]- 5262 Feb, [facility] [place] [facility] [address] [id number] [place] [address]- 6255 Feb, [facility] [place] [facility] [address] [id number] [place] [address]- 4545 Feb, [facility] [place] [facility] [address] [facility] [id number] [place] [address]- 5114 Jan, [facility] [place] [facility] [address] [id number] [place] [address]- 4000 Jan, [facility] [place] [facility] [address] [id number] [place] [address]- 3560 Jan, [facility] [place] [facility] [address] [id number] [place] [address]- 3234 Jan, [facility] [place] [facility] [address] [id number] [place] [address]- 7619 Dec, [facility] [place] [facility] [address] [id number] [place] 5930 Dec, [facility] [place] [facility] [address] [id number] [place] [address]- 6496 Dec, [facility] [place] [facility] [address] [id number] [place] [address]- 7596 Dec, [facility] [place] [facility] [address] [id number] [place] [address]- 3464 Dec, [facility] [place] [facility] [address] [id number] [place] [address]- 8443 Dec, [facility] [place] [facility] [address] [id number] [place] [address]- 6820 Dec, [facility] [place] [facility] [address] [id number] [place] [address]- 7725 Dec, [facility] [place] [facility] [address] [id number] [place] [address]- 8514 Dec, [facility] [place] [facility] [address] [id number] [place] [address]- 4955 Dec, [facility] [place] [facility] [address] [id number] [place] [address]- 5908 Dec, [facility] [place] [facility] [address] [id number] [place] [address]- 8502 Nov, [facility] [place] [facility] [address] [id number] [place] [address]- 3940 Nov, [facility] [place] [facility] [address] [id number] [place] [address]- 2494 28 Nov, 2013 [facility] [place] [facility] [address] [id number] [place] [address]- 3245 Nov, [facility] [place] [facility] [address] [id number] [place] [address]- 5775 17 Nov, 2013 [facility] [place] [facility] [address] [id number] [place] [address]- 2713 15 Nov, 2013 [facility] [place] [facility] [address] [id number] [place] [address]- 3426 15 Nov, 2013 [facility] [place] [facility] [address] [id number] [place] [address]- 6208 15 Nov, 2013 [facility] [place] [facility] [address] [id number] [place] [address]- 2605 15 Nov, 2013 [facility] [place] [facility] [address] [id number] [place] [address]- 3697 14 Nov, 2013 [facility] [place] [facility] [address] [id number] [place] [address]- 3435 14 Nov, 2013 [facility] [place] [facility] [address] [id number] [place] [address]- 7295 14 Nov, 2013 [facility] [place] [facility] [address] [id number] [place] [address]- 3300 14 Nov, 2013 [facility] [place] [facility] [address] [id number] [place] [address]- 1103 13 Nov, 2013 [facility] [place] [facility] [address] [id number] [address]- 8533 13 Nov, 2013 [facility] [place] [facility] [address] [id number] [place] [address]- 1578 11 Nov, 2013 [facility] [place] [facility] [address] [id number] [address]- 2013 11 Nov, 2013 [facility] [place] [facility] [address] [id number], [place] [address]- 3560 07 Nov, 2013 [facility] [place] [facility] [address] [id number], [place] [address]- 2235 07 Nov, 2013 [facility] [place] [facility] [address] [id number] [place] [address]- 9077 07 Nov, 2013 [facility] [place] [facility] [address] [id number], [place] [address]- 1275 07 Nov, 2013 [facility] [place] [facility] [address] [id number], [place] [address]- 7027 30 Oct, 2013 [facility] [place] [facility] [address] [id number] [place] [address]- 0157 30 Oct, 2013 [facility] [place] [facility] [address] [id number] [place] [address] 2546 26 Oct, 2013 [facility] [place] [facility] [address] [id number] [place] [address] 2546 26 Oct, 2013 [facility] [place] [facility] [address] [id number] [place] [address]- 8072 22 Oct, 2013 [facility] [place] [facility] [address] [id number] [place] [address] 2543 22 Oct, 2013 [facility] [place] [facility] [address] [id number] [place] [address]- 0048 18 Oct, 2013 [facility] [place] [facility] [address] [id number] [place] [address]- 1996 18 Oct, 2013 [facility] [place] [facility] [address] [id number] [place] [address]- 0674 18 Oct, 2013 [facility] [place] [facility] [address] [id number] [place] [address]- 2646 18 Oct, 2013 [facility] [place] [facility] [address] [id number] [place] [address]- 9639 12 Oct, 2013 [facility] [place] [facility] [address] [id number] [place] [address]- 2541 12 Oct, 2013 [facility] [place] [facility] [address] [id number] [place] [address] 2545 Oct, 2013 [facility] [place] [facility] [address] [id number] [place] [address]- 254 Oct, 2013 [facility] [place] [facility] [address] [id number] [place] [address]- 6556 Sep, [facility] [place] [facility] [address] [id number] [place] [address]- 8968 Sep, [facility] [place] [facility] [address] [id number] [place] [address]- 8908 Sep, [facility] [place] [facility] [address] [id number] [place] [address]- 5586 Sep, [facility] [place] [facility] [address] [id number] [place] [address]- 9005 Sep, [facility] [place] [facility] [address] [id number] [place] [address]- 2664 Sep, [facility] [place] [facility] [address] [id number] [place] [address]- 2470 Sep, [facility] [place] [facility] [address] [id number] [place] [address]- 7530 Sep, [facility] [place] [facility] [address] [id number] [place] [address]- 1295 Sep, [facility] [place] [facility] [address] [id number] [place] [address]- 2925 Sep, [facility] [place] [facility] [address] [id number] [place] [address]- 4576 Sep, [facility] [place] [facility] [address] [id number] [place] [address]- 1562 Sep, [facility] [place] [facility] [address] [id number] [place] [address]- 0300 Sep, [facility] [place] [facility] [address] [id number] [place] [address]- 3739 Sep, [facility] [place] [facility] [address] [id number] [place] [address]- 1046 Sep, [facility] [place] [facility] [address] [id number] [place] [address]- 3760 Sep, [facility] [place] [facility] [address] [id number] [place] [address]- 6493 Sep, [facility] [place] [facility] [address] [id number] [place] [address]- 1839 Sep, [facility] [place] [facility] [address] [id number] [place] [address]- 2395 Aug, [facility] [place] [facility] [address] [id number] [place] [address]- 9069 Aug, [facility] [place] [facility] [address] [id number] [place] [address]- 2393 Aug, [facility] [place] [facility] [address] [id number] [place] [address]- 3683 Aug, [facility] [place] [facility] [address] [id number] [place] [address]- 7610 Aug, [facility] [place] [facility] [address] [id number] [place] [address]- 4940 Aug, [facility] [place] [facility] [address] [id number] [place] [address]- 5205 Jul, [facility] [place] [facility] [address] [id number] [place] [address]- 3669 Jul, [facility] [place] [facility] [address] [id number] [place] [address]- 7083 Jul, [facility] [place] [facility] [address] [id number] [place] [address]- 2757 Jul, [facility] [place] [facility] [address] [id number] [place] [address]- 4116 June, [facility] [place] [facility] [address] [id number] [place] [address]- 3885 June, [facility] [place] [facility] [address] [id number] [place] [address]- 4981 June, [facility] [place] [facility] [address] [id number] [place] [address]- 0553 June, [facility] [place] [facility] [address] [id number] [place] [address]- 0225 June, [facility] [place] [facility] [address] [id number] [place] [address]- 4631 June, [facility] [place] [facility] [address] [id number] [place] [address]- 7306 June, [facility] [place] [facility] [address] [id number] [place] [address]- 8273 May, [facility] [place] [facility] [address] [id number] [place] [address]- 3666 May, [facility] [place] [facility] [address] [id number] [place] [address]- 5114 May, [facility] [place] [facility] [address] [id number] [place] [address]- 1318 May, [facility] [place] [facility] [address] [id number] [place] [address]- 7856 May, [facility] [place] [facility] [address] [id number] [place] [address]- 5565 May, [facility] [place] [facility] [address] [id number] [place] [address]- 9361 31 Apr, 2013 [facility] [place] [facility] [address] [id number] [place] [address]- 9295 31 Apr, 2013 [facility] [place] [facility] [address] [id number] [place] [address]- 8716 28 Apr, 2013 [facility] [place] [facility] [address] [id number] [place] [address]- 3048 28 Apr, 2013 [facility] [place] [facility] [address] [id number] [place] [address]- 8296 14 Apr, 2013 [facility] [place] [facility] [address] [id number] [place] [address]- 9174 14 Apr, 2013 [facility] [place] [facility] [address] [id number] [place] [address]- 7459 12 Apr, 2013 [facility] [place] [facility] [address] [id number] [place] [address]- 9826 12 Apr, 2013 [facility] [place] [facility] [address] [id number] [place] [address]- 4761 Apr, [facility] [place] [facility] [address] [id number] [place] [address]- 3654 Apr, [facility] [place] [facility] [address] [id number] [place] [address]- 1580 Apr, [facility] [place] [facility] [address] [id number] [place] [address]- 6626 Apr, [facility] [place] [facility] [address] [id number] [place] [address] Apr, [facility] [place] [facility] [address] [id number] [place] [address] Apr, [facility] [place] [facility] [address] [id number] [place] [address] Mar, [facility] [place] [facility] [address] [id number] [place] [address] Mar, [facility] [place] [facility] [address] [id number] [place] [address] Mar, [facility] [place] [facility] [address] [id number] [place] [address] Feb, [facility] [place] [facility] [address] [id number] [place] [address] Feb, [facility] [place] [facility] [address] [id number] [place] [address] Feb, [facility] [place] [facility] [address] [id number] [place] [address] Feb, [facility] [place] [facility] [address] [id number] [place] [address] Feb, [facility] [place] [facility] [address] [id number] [place] [address] Feb, [facility] [place] [facility] [address] [id number] [place] [address] Feb, [facility] [place] [facility] [address] [id number] [place] [address] Feb, [facility] [address] [id number] [place] [address] Feb, [facility] [address] [id number] [place] [address] Feb, [facility] [address] [id number] [place] [address] Jan, [facility] [address] [id number] [place] [address] 30 Jan, 2013 [facility] [address] [id number] [place] [address] Jan, [facility] [address] [id number] [place] [address] Jan, [facility] [address] [id number] [place] [address] Jan, [facility] [address] [id number] [place] [address] Jan, [facility] [address] [id number] [place] [address]- [address] Jan, [facility] [address] [id number] [place] [address] Jan, [facility] [address] [id number] [place] [address] 8426 Jan, [facility] [address] [id number] [place] [address] 19 Jan, 2013 [facility] [place] [facility] [address] [id number] [place] [address] 17 Jan, 2013 [facility] [place] [facility] [address] [id number] [place] [address] 17 Jan, 2013 [facility] [address] [id number] [place] [address] Jan, [facility] [place] [facility] [address] [id number] [place] [address]- [address] Jan, [facility] [address] [id number] [place] [address] Jan, [facility] [address] [id number] [place] [address]- [address] Jan, [facility] [address] [id number] [place] [address] Jan, [facility] [address] [id number] [place] [address]- [address]199 Jan, [facility] [address] [id number] [place] [address]489 Jan, [facility] [address] [id number] [place] [address] Jan, [facility] [address] [id number] [place] [address] Jan, [facility] [address] [id number] [place] [address]- [address] Dec, [facility] [address] [id number] [place] [address] Dec, [facility] [address] [id number] [place] [address] Dec, [facility] [place] [facility] [address] [id number] [address] Dec, [facility] [place] [facility] [address] [id number] [place] [address] 1620 Dec, [facility] [place] [facility] [address] [id number] [place] [address] Dec, [facility] [place] [facility] [address] [id number] [place] [address]- [address] Dec, [facility] [place] [facility] [address] [id number], [place] [address] Dec, [facility] [place] [facility] [address] [id number] [place] [address]- [address] Dec, [facility] [place] [facility] [address] [id number] [place] [address]- [address] Dec, [facility] [place] [facility] [address] [id number] [place] [address]- 8318 Nov, [facility] [place] [facility] [address] [id number] [place] [address]- [address]26 Nov, [facility] [place] [facility] [address] [id number] [place] [address]- 7800 Nov, [facility] [place] [facility] [address] [id number] [place] [address]- 94[address] Nov, [facility] [place] [facility] [address] [id number], [place] [address] Nov, [facility] [place] [facility] [address] [id number] [place] [address]- [address] Nov, [facility] [place] [facility] [address] [id number] [place] [address]- [address] Nov, [facility] [place] [facility] [address] [id number] [place] [address]- 70[address] Nov, [facility] [place] [facility] [address] [id number], [place] [address] Nov, [facility] [place] [facility] [address] [id number], [place] [address] Nov, [facility] [place] [facility] [address] [id number] [place] [address]- [address]104 Oct, [facility] [place] [facility] [address] [id number] [place] [address] Oct, [facility] [place] [facility] [address] [id number] [place] [address] 44[address] Oct, [facility] [place] [facility] [address] [id number] [place] [address] Oct, [facility] [address] [id number] [place] [address] 8166 Oct, [facility] [address] [id number] [place] [address] Sep, [facility] [address] [id number] [place] [address] Sep, [facility] [address] [id number] [place] [address] Aug, [facility] [address] [id number] [place] [address]- 6985 Aug, [facility] [address] [id number] [place] [address] 490[address] Aug, [facility] [address] [id number] [place] [address] 5760 Aug, [facility] [address] [id number] [place] [address]- 7137 Aug, [facility] [address] [id number] [place] [address]- 8374 Aug, [facility] [address] [id number] [place] [address] 6010 Aug, [facility] [address] [id number] [place] [address] 8897 Jul, [facility] [address] [id number] [place] [address]- 9883 Jul, [facility] [place] [facility] [address] [id number] [place] [address]- 8497 June, [facility] [address] [id number] [place] [address]- 2546 June, [facility] [address] [id number] [place] [address]- 3191 June, [facility] [address] [id number] [place] [address]- 9641 June, [facility] [address] [id number] [place] [address]- 2699 June, [facility] [address] [id number] [place] [address] June, [facility] [address] [id number] [place] [address]- 8045 June, [facility] [address] [id number] [place] [address]- 8498 June, [facility] [address] [id number] [place] [address]- 7095 June, [facility] [address] [id number] [place] [address]- 5222 June, [facility] [address] [id number] [place] [address]- 5807 June, [facility] [address] [id number] [place] [address] 1070 May, [facility] [address] [id number] [place] [address]- 4917 May, [facility] [address] [id number] [place] [address]- 7541 May, [facility] [place] [facility] [address] [id number] [place] [address]- 1838 May, [facility] [place] [facility] [address] [id number] [place] [address] 4148 Apr, [facility] [place] [facility] [address] [id number] [place] [address]- 8126 Apr, [facility] [place] [facility] [address] [id number] [place] [address]- 6074 Apr, [facility] [place] [facility] [address] [id number] [place] [address]- 2466 Mar, [facility] [address] [id number] [place] [address]- 5326 Mar, [facility] [address] [id number] [place] [address]- 5036 Feb, [facility] [address] [id number] [place] [address]- 1590 Feb, [facility] [address] [id number] [place] [address]- 4318 Feb, [facility] [address] [id number] [place] [address]- 8659 Feb, [facility] [address] [id number] [place] [address]- 2819 16 Feb, 2012 [facility] [address] [id number] [place] [address]- 6752 Feb, [facility] [address] [id number] [place] [address]- 7572 Feb, [facility] [address] [id number] [place] [address]- 0969 31 Jan, 2012 [facility] [address] [id number] [place] [address]- 6473 Jan, [facility] [address] [id number] [place] [address]- 0971 Jan, [facility] [address] [id number] [place] [address]- 0090 Jan, [facility] [address] [id number] [place] [address]- 5626 Jan, [facility] [address] [id number] [place] [address]- 2511 Jan, [facility] [address] [id number] [place] [address]- 7825 Jan, [facility] [place] [facility] [address] [id number] [place] [address]- 8970 Jan, [facility] [place] [facility] [address] [id number] [place] [address]- 0294 Jan, [facility] [place] [facility] [address] [id number] [place] [address]- 1565 Jan, [facility] [place] [facility] [address] [id number] [place] [address]- 3256 Jan, [facility] [place] [facility] [address] [id number] [place] [address]- 7296 Dec, [facility] [place] [facility] [address] [id number] [place] [address]- 0290 Dec, [facility] [place] [facility] [address] [id number] [place] [address]- 4022 Dec, [facility] [place] [facility] [address] [id number] [place] [address]- 5863 Dec, [facility] [place] [facility] [address] [id number] [place] [address]- 6543 Nov, [facility] [place] [facility] [address] [id number] [place] [address]- 8600 Nov, [facility] [place] [facility] [address] [id number] [place] [address]- 9722 Nov, [facility] [place] [facility] [address] [id number] [place] [address]- 9530 27 Oct, 2011 [facility] [place] [facility] [address] [id number] [place] [address]- 1875 24 Oct, 2011 [facility] [place] [facility] [address] [id number] [place] [address]- 6438 21 Oct, 2011 [facility] [place] [facility] [address] [id number] [place] [address]- 8059 10 Oct, 2011 [facility] [place] [facility] [address] [id number] [place] [address]- 8596 07 Oct, 2011 [facility] [place] [facility] [address] [id number] [place] [address]- 4926 Oct, [facility] [place] [facility] [address] [id number] [place] [address]- 9466 04 Oct, 2011 [facility] [place] [facility] [address] [id number] [place] [address]- 7485 Sep, [facility] [place] [facility] [address] [id number] [place] [address]- 1151 Sep, [facility] [place] [facility] [address] [id number] [place] [address]- 4624 Sep, [facility] [place] [facility] [address] [id number] [place] [address]- 5445 Sep, [facility] [place] [facility] [address] [id number] [place] [address]- 3558 Sep, [facility] [place] [facility] [address] [id number] [place] [address]- 5739 Aug, [facility] [place] [facility] [address] [id number] [place] [address]- 3715 Aug, [facility] [place] [facility] [address] [id number] [place] [address]- 4875 Aug, [facility] [place] [facility] [address] [id number] [place] [address]- 6109 16 Aug, 2011 [facility] [place] [facility] [address] [id number] [place] [address]- 8321 Aug, [facility] [place] [facility] [address] [id number] [place] [address]- 0204 Aug, [facility] [place] [facility] [address] [id number] [place] [address]- 7195 Aug, [facility] [place] [facility] [address] [id number] [place] [address]- 6528 Jul, [facility] [place] [facility] [address] [id number] [place] [address]- 8441 26 Jul, 2011 [facility] [address] [id number] [place] [address]- 5848 Jul, [facility] [place] [facility] [address] [id number] [place] [address]- 8044 Jul, [facility] [address] [id number] [place] [address]- 9011 Jul, [facility] [place] [facility] [address] [id number] [place] [address]- 0805 Jul, [facility] [address] [id number] [place] [address]- 1567 07 Jul, 2011 [facility] [address] [id number] [place] [address]- 2948 Jul, [facility] [address] [id number] [place] [address]- 1634 05 Jul, 2011 [facility] [address] [id number] [place] [address]- 9095 June, [facility] [address] [id number] [place] [address]- 3179 June, [facility] [address] [id number] [place] [address]- 6989 June, [facility] [place] [facility] [address] [id number] [place] [address]- 6778 June, [facility] [address] [id number] [place] [address]- 4097 June, [facility] [place] [facility] [address] [id number] [place] [address]- 1906 June, [facility] [place] [facility] [address] [id number] [place] [address]- 3736 June, [facility] [address] [id number] [place] [address]- 9997 June, [facility] [address] [id number] [place] [address]- 8388 May, [facility] [place] [facility] [address] [id number] [place] [address]- 8896 May, [facility] [place] [facility] [address] [id number] [place] [address]- 9986 May, [facility] [place] [facility] [address] [id number] [place] [address]- 8156 May, [facility] [place] [facility] [address] [id number] [place] [address]- 3142 May, [facility] [place] [facility] [address] [id number] [place] [address]- 3746 May, [facility] [place] [facility] [address] [id number] [place] [address]- 5246 May, [facility] [place] [facility] [address] [id number] [place] [address]- 9174 Apr, [facility] [place] [facility] [address] [id number] [place] [address]- 8876 Apr, [facility] [place] [facility] [address] [id number] [place] [address]- 1769 Apr, [facility] [place] [facility] [address] [id number] [place] [address]- 2306 Apr, [facility] [place] [facility] [address] [id number] [address]- 4526 Apr, [facility] [place] [facility] [address] [id number] [place] [address]- 3456 Apr, [facility] [place] [facility] [address] [id number] [place] [address]- 0756 Apr, [facility] [place] [facility] [address] [id number] [address]- 5986 Mar, [facility] [place] [facility] [address] [id number], [place] [address]- 4828 20 Mar, 2011 [facility] [address] [id number] [place] [address]- 6276 14 Mar, 2011 [facility] [address] [id number] [place] [address]- 1276 13 Mar, 2011 [facility] [address] [id number] [place] [address]- 6436 Mar, [facility] [address] [id number] [place] [address] 2546 Mar, [facility] [address] [id number] [place] [address]- 6946 Mar, [facility] [address] [id number] [place] [address]- 9291 Feb, [facility] [address] [id number] [place] [address]- 3486 Feb, [facility] [address] [id number] [place] [address]- 2046 Feb, [facility] [address] [id number] [place] [address]- 4794 Feb, [facility] [address] [id number] [place] [address]- 0247 Feb, [facility] [address] [id number] [place] [address]- 6696 Feb, [facility] [address] [id number] [place] [address]- 6720 Feb, [facility] [place] [facility] [address] [id number] [place] [address]- 7293 Feb, [facility] [place] [facility] [address] [id number] [place] [address]- 1696 Feb, [facility] [address] [id number] [place] [address]- 3209 Feb, [facility] [place] [facility] [address] [id number] [place] [address]- 6693 Jan, [facility] [place] [facility] [address] [id number] [place] [address]- 5886 Jan, [facility] [place] [facility] [address] [id number] [place] [address]- 8629 Jan, [facility] [place] [facility] [address] [id number] [place] [address]- 7526 Jan, [facility] [place] [facility] [address] [id number] [place] 1185 Jan, [facility] [place] [facility] [address] [id number] [place] [address]- 3329 Jan, [facility] [place] [facility] [address] [id number] [place] [address]- 4659 Jan, [facility] [place] [facility] [address] [id number] [place] [address]- 1462 Jan, [facility] [place] [facility] [address] [id number] [place] [address]- 1600 Jan, [facility] [place] [facility] [address] [id number] [place] 6051 Jan, [facility] [place] [facility] [address] [id number] [place] [address]- 8835 Jan, [facility] [place] [facility] [address] [id number] [place] [address]- 7025 Dec, [facility] [place] [facility] [address] [id number] [place] [address]- 4439 Dec, [facility] [place] [facility] [address] [id number] [place] [address]- 8110 Dec, [facility] [place] [facility] [address] [id number] [place] [address]- 2950 16 Dec, 2010 [facility] [place] [facility] [address] [id number], [place] [address]- 2525 14 Dec, 2010 [facility] [place] [facility] [address] [id number] [place] [address]- 6931 Dec, [facility] [place] [facility] [address] [id number] [place] [address]49 08 Dec, 2010 [facility] [place] [facility] [address] [id number] [place] [address]- 3274 Dec, [facility] [place] [facility] [address] [id number] [place] [address]- 8720 Dec, [facility] [place] [facility] [address] [id number] [place] [address]- 1005 Nov, [facility] [place] [facility] [address] [id number] [place] [address]- 6502 Nov, [facility] [place] [facility] [address] [id number] [place] [address]- 0453 Nov, [facility] [place] [facility] [address] [id number] [place] [address]- 5430 24 Nov, 2010 [facility] [place] [facility] [address] [id number] [place] [address]- 0463 24 Nov, 2010 [facility] [place] [facility] [address] [id number] [place] [address]- 5529 Nov, [facility] [place] [facility] [address] [id number], [place] [address]- 9183 Aug, [facility] [place] [facility] [address] [id number] [place] [address]- 6065 14 Feb, 2010 [facility] [place] [facility] [address] [id number] [place] [address]- 1964 14 Jan, 2010 [facility] [place] [facility] [address] [id number] [place] 0306 06 Jan, 2010 [facility] [place] [facility] [address] [id number] [place] 8694 Jan, [facility] [place] [facility] [id number], [place] [address]- 7256 Jan, [facility] [id number], [place] [address]- 8864 Jan, [facility] [id number], [place] [address]- 4125 Dec, [facility] [id number], [place] [address]- 8284 Dec, [facility] [id number], [place] [address]- 7537 Dec, [facility] [id number] [place] [address]- 9828 Dec, [facility] [id number] 5896 Nov, [facility] [id number], [place] [address]- 6455 Nov, [facility] [id number], [place] [address]- 0283 Nov, IMMUNIZATIONS No Known Immunizations SOCIAL HISTORY Never Assessed REASON FOR VISIT referral/PT PLAN OF CARE VITAL SIGNS MEDICATIONS Unknown [...]
[2018-01-13] MEDS: PREGABALIN 75 MG (LYRICA) CAP PO SCH (21:54)
[2018-01-13] MEDS: clonazePAM 1 MG (KlonoPIN) TAB PO SCH (21:54)
--- OUTSIDE RECORDS SUMMARY | 2018-01-13 21:54 | XMS REPORT ---
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 Active 237513635 Problem Hypertension I10 Active 82523119 Problem Arthritis M19.90 Active 5005027 Problem 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 Active 98963403 Problem Anxiety F41.9 Active 56714596 Problem Unspecified episodic mood disorder F39 Active 29020827 Problem Left hip pain M25.552 Active 49992483 ALLERGIES No Information ENCOUNTERS Encounter Location Date Diagnosis [facility] [address] [facility] [id number] [address] Nov, [facility] [id number] [address] 5347 Oct, [facility] [address] [facility] [id number] [address] Oct, [facility] [id number] [place] [address] 25417- 4230 Oct, Arthritis M19.90 and Unspecified episodic mood disorder F39 [facility] [id number] [place] [address] 81330- 6525 Sep, Chronic hepatitis C without hepatic coma B18.2 [facility] [id number] [place] [address] 50815- 9950 Sep, Gastroesophageal reflux disease, esophagitis presence not specified K21.9 and Other chronic pain G89.29 [facility] [id number] [place] [address] 87765- 4484 Sep, [facility] [id number] [place] [address] 24030- 1110 Sep, [facility] [id number] [place] [address] 62697- 7718 Sep, Chronic hepatitis C without hepatic coma B18.2 [facility] [id number] [place] [address] 91667- 5452 Sep, 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 [facility] [id number] [place] [address] 65349- 7153 Sep, Arthritis M19.90 [facility] [id number] [place] [address] 45448- 5009 Sep, [facility] [id number] [place] [address] 63521- 1186 Sep, Unspecified episodic mood disorder F39 [facility] [id number] [place] [address] 47557- 1368 Aug, [facility] [id number] [place] [address] [id number] Aug, [facility] [id number] [place] [address] 86041- 2743 Aug, Arthritis M19.90 [facility] [id number] [place] [address] 96857- 3629 Aug, [facility] [id number] [place] [address] 33465- 3159 Aug, Obesity (BMI 30.0-34.9) E66.9 ; Unspecified episodic mood disorder F39 and Hypertension I10 [facility] [id number] [place] [address] 97534- 9252 Aug, Unspecified episodic mood disorder F39 [facility] [id number] [place] [address] 77263- 3908 Aug, [facility] [id number] [place] [address] 97518- 9374 Jul, Unspecified episodic mood disorder F39 [facility] [id number] [place] [address] 74107- 2185 Jul, [facility] [id number] [place] [address] 38270- 0907 Jul, Arthritis M19.90 [facility] [id number] [place] [address] 86577- 1189 Jul, Left hip pain M25.552 ; Hypertension I10 ; Other obesity due to excess calories E66.09 and Body mass index (BMI) of 34.0-34.9 in adult Z68.34 [facility] [id number] [place] [address] 71388- 6887 Jul, Unspecified episodic mood disorder F39 [facility] [id number] [place] [address] 91086- 3230 June, Gastroesophageal reflux disease, esophagitis presence not specified K21.9 [facility] [id number] [place] [address] 87696- 7290 June, [facility] [id number] [place] [address] 18946- 3889 June, [facility] [address] [address] 6719 June, Arthritis M19.90 [facility] [address] [address]- 9321 June, [facility] [address] [address]- 3001 June, [facility] [id number] [place] [address] 77441- 3641 June, Unspecified episodic mood disorder F39 [facility] [id number] [place] [address] 53936- 3700 May, Unspecified episodic mood disorder F39 [facility] [address] [address]- 0853 May, [facility] [id number] [place] [address] 93501- 8900 May, Arthritis M19.90 [facility] [address] [address] May, Dysuria R30.0 ; Abscess L02.91 and Acute cystitis without hematuria N30.00 [facility] [address] [address]- 8691 May, Other disorder of impulse control 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 ; Unspecified episodic mood disorder F39 ; Combined drug dependence excluding opioids, 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 ; Anxiety F41.9 and Other psychoactive substance dependence, 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 [facility] [address] [address]- 8888 May, [facility] [id number] [place] [address] 10325- 7437 May, 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 ; Unspecified episodic mood disorder F39 ; Combined drug dependence excluding opioids, 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 and Other disorder of impulse control F63.89 [facility] [id number] [place] [address] 97544- 7467 Apr, [facility] [id number] [place] [address] 69852- 4936 Apr, Arthritis M19.90 and Unspecified episodic mood disorder F39 [facility] [id number] [place] [address] 60221- 6642 Apr, Unspecified episodic mood disorder F39 [facility] [id number] [place] [address] 66331- 1256 Apr, [facility] [id number] [place] [address] 61398- 1235 Apr, [facility] [id number] [place] [address] 82051- 4954 07 Apr, 2017 Unspecified episodic mood disorder F39 ; Combined drug dependence excluding opioids, 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 ; Anxiety F41.9 ; Other psychoactive substance dependence, 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 and Other disorder of impulse control F63.89 [facility] [address] [address] 2546 Mar, Unspecified episodic mood disorder F39 [facility] [id number] [place] [address] 90153- 5686 Mar, Gastroesophageal reflux disease, esophagitis presence not specified K21.9 [facility] [id number] [place] [address] 35754- 7896 Mar, Arthritis M19.90 and Unspecified episodic mood disorder F39 [facility] [id number] [place] [address] 94091 2546 Feb, [facility] [id number] [place] [address] 15213- 1226 Feb, [facility] [id number] [place] [address] 08177- 2816 Feb, [facility] [id number] [place] [address] 29639 2546 Feb, Arthritis M19.90 [facility] [id number] [place] [address] 04122 2546 Feb, Non-pressure chronic ulcer of right calf, 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 ; Unspecified episodic mood disorder F39 and Left hip pain M25.552 [facility] [address] [address] 2546 Feb, [facility] [id number] [place] [address] 74153 2546 Feb, [facility] [id number] [place] [address] 24520 2546 Jan, Arthritis M19.90 [facility] [id number] [place] [address] 68911 2546 Jan, Left hip pain M25.552 and Non-pressure chronic ulcer of right calf, 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 [facility] [id number] [place] [address] 27495- 3268 Jan, Chronic hepatitis C without hepatic coma B18.2 [facility] [id number] [place] [address] 44616- 0720 Jan, Encounter for immunization Z23 ; Venous insufficiency ( chronic) (peripheral) I87.2 ; Non-pressure chronic ulcer of unspecified calf limited to breakdown of skin L97.201 and Gastroesophageal reflux disease, esophagitis presence not specified K21.9 [facility] [id number] [place] [address] 38536- 1390 Jan, [facility] [id number] [place] [address] 02997- 5502 Jan, Chronic hepatitis C without hepatic coma B18.2 and Encounter for immunization Z23 [facility] [id number] [place] [address] 03240- 8965 Jan, Arthritis M19.90 [facility] [id number] [place] [address] 05772- 3987 Jan, [facility] [id number] [place] [address] 73236- 4160 Dec, [facility] [id number] [place] [address] 80881- 7961 Dec, Unspecified episodic mood disorder F39 [facility] [id number] [place] [address] 78042- 9832 Dec, Arthritis M19.90 [facility] [id number] [place] [address] 76566- 5740 Dec, Arthritis M19.90 [facility] [id number] [place] [address] 72001- 4737 Nov, [facility] [id number] [place] [address] 36660- 1971 Nov, [facility] [id number] [place] [address] 01219- 9996 Nov, Other psychoactive substance dependence, 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 ; 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, 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 and Chronic hepatitis C without hepatic coma B18.2 [facility] [id number] [place] [address] 60943- 9178 Nov, Arthritis M19.90 [facility] [id number] [place] [address] 39654 -0453 Oct, Partial thickness burn of abdomen, initial encounter T21.22XA [facility] [id number] [place] [address] 82106- 1454 Oct, [facility] [address] 58933- 8819 Sep, Arthritis M19.90 [facility] [id number] [place] [address] 06099- 2000 Sep, [facility] [id number] [place] [address] 28642- 7905 Sep, [facility] [id number] [place] [address] 66606- 2471 Sep, Unspecified episodic mood disorder F39 ; Chronic hepatitis C without hepatic coma B18.2 and Left hip pain M25.552 [facility] [id number] [place] [address] 12349- 4202 Sep, Arthritis M19.90 and Left hip pain M25.552 [facility] [id number] [place] [address] 92752- 7831 Aug, [facility] [id number] [place] [address] 28234- 6000 Aug, [facility] [id number] [place] [address] 79001- 3306 Aug, Chronic hepatitis C without hepatic coma B18.2 [facility] [id number] [place] [address] 86445- 3727 Aug, [facility] [id number] [place] [address] 07645- 5117 Aug, Chronic hepatitis C without hepatic coma B18.2 [facility] [id number] [place] [address] 01824- 8095 Aug, 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, 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 [facility] [id number] [place] [address] 38647- 1108 Aug, [facility] [id number] [place] [address] 20119- 9984 Aug, Chronic hepatitis C without hepatic coma B18.2 and Hypertension I10 [facility] [id number] [place] [address] 93304- 2328 Jul, [facility] [id number] [place] [address] 31386- 5836 June, [facility] [id number] [place] [address] 59636- 9405 Apr, Fibromyalgia M79.7 ; Left hip pain M25.552 and Decubitus ulcer of sacral region, stage 1 L89.151 [facility] [id number] [place] [address] 47964- 3805 Apr, [facility] [id number] [place] [address] 16774- 5028 Apr, [facility] [id number] [place] [address] 49925- 1821 Feb, [facility] [id number] [place] [address] 79680- 9584 Dec, Anxiety F41.9 ; Combined drug dependence excluding opioids, 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 and Unspecified episodic mood disorder F39 [facility] [id number] [place] [address] 71110- 6424 Dec, [facility] [address] [place] [address]- 2524 Nov, [facility] [id number] [place] [address] 23951- 0343 Nov, [facility] [id number] [place] [address] 25713- 3125 Nov, Other disorder of impulse control F63.89 and Anxiety F41.9 [facility] [id number] [place] [address] 73497- 0658 Oct, 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 and Anxiety F41.9 [facility] [id number] [place] [address] 33094- 6969 Sep, Other disorder of impulse control 312.39 ; Combined drug dependence excluding opioids, 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 ; Anxiety F41.9 and Unspecified episodic mood disorder F39 [facility] [id number] [place] [address] 76809- 2171 Sep, Other chronic pain G89.29 [facility] [id number] [place] [address] 80341- 2099 Sep, [facility] [id number] [place] [address] 21937- 7816 Sep, [facility] [id number] [place] [address] 14508- 9179 Aug, [facility] [id number] [place] [address] 34802- 3315 Aug, [facility] [address] [address]- 7897 Aug, [facility] [id number] [place] [address] 02322- 4626 Jul, [facility] [id number] [place] [address] 22768- 9905 Jul, [facility] [id number] [place] [address] 10113- 7093 Jul, [facility] [id number] [place] [address] 36510- 3729 Jul, Arthritis M19.90 ; Chronic hepatitis C without hepatic coma B18.2 and Left hip pain M25.552 [facility] [id number] [place] [address] 25576- 1685 Jul, Left knee pain M25.562 [facility] [id number] [place] [address] 00627- 8755 Jul, Combined drug dependence excluding opioids, 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 ; Anxiety F41.9 ; Other disorder of impulse control 312.39 and Unspecified episodic mood disorder F39 [facility] [id number] [place] [address] 45366- 8467 Jul, Left knee pain M25.562 [facility] [id number] [place] [address] 67761- 4060 Jul, Left knee pain M25.562 and Left hip pain M25.552 [facility] [id number] [place] [address] 90929- 9556 Jul, [facility] [id number] [place] [address] 44027- 9951 June, [facility] [id number] [place] [address] 28205- 4391 June, Combinations of drug dependence excluding opioid type drug, unspecified abuse 304.80 ; Other disorder of impulse control 312.39 ; Unspecified episodic mood disorder F39 and Anxiety F41.9 [facility] [id number] [place] [address] 17738- 1150 June, Other fatigue R53.83 ; Headache R51 and Left knee pain M25.562 [facility] [id number] [place] [address] 33611- 7467 June, Unspecified episodic mood disorder F39 ; Combinations of drug dependence excluding opioid type drug, unspecified abuse 304.80 ; Other disorder of impulse control 312.39 and Anxiety F41.9 [place] [id number] [place] [address] 08134- 9149 June, Anxiety F41.9 [place] [id number] [place] [address] 01148- 3803 June, Pain in left knee M25.562 [place] [id number] [place] [address] 83795- 3570 June, Anxiety F41.9 and Combinations of drug dependence excluding opioid type drug, unspecified abuse 304.80 [place] [id number] [place] [address] 25171- 2622 June, Unspecified episodic mood disorder 296.90 ; Combinations of drug dependence excluding opioid type drug, unspecified abuse 304.80 and Other disorder of impulse control 312.39 [place] [address] [place] [id number] [place] [address] 62438- 2604 June, Anxiety F41.9 and Unspecified episodic mood disorder 296.90 [place] [id number] [place] [address] 82652- 7859 May, Arthritis M19.90 [place] [address] [id number] [place] [address] 71030- 5843 May, Arthritis M19.90 [facility] [id number] [place] [address] 89568- 2097 May, Anxiety F41.9 ; Combinations of drug dependence excluding opioid type drug, unspecified abuse 304.80 and Other disorder of impulse control 312.39 [facility] [id number] [address] 18 May, 2015 Left knee pain M25.562 [facility] [id number] [address] 14 May, 2015 Arthritis M19.90 [place] [address] [place] [id number] [place] [address] 26432- 4836 May, [place] [address] [id number] [place] [address] 09184- 3330 May, Anxiety F41.9 ; Unspecified episodic mood disorder 296.90 ; Combinations of drug dependence excluding opioid type drug, unspecified abuse 304.80 and Other disorder of impulse control 312.39 [place] [address] [address] 3[address] May, Left knee pain M25.562 [place] [id number] [place] [address] 65303- 4403 11 May, 2015 Left knee pain M25.562 ; Combinations of drug dependence excluding opioid type drug, unspecified abuse 304.80 ; Other disorder of impulse control 312.39 ; Fibromyalgia M79.7 ; Hypertension I10 ; Unspecified episodic mood disorder 296.90 and Left hip pain M25.552 [place] [id number] [place] [address] 12112- 9140 May, Unspecified episodic mood disorder 296.90 ; Other disorder of impulse control 312.39 ; Combinations of drug dependence excluding opioid type drug, unspecified abuse 304.80 and Anxiety F41.9 [place] [id number] [place] [address] 06852- 5864 May, Left knee pain M25.562 ; Combinations of drug dependence excluding opioid type drug, unspecified abuse 304.80 ; Other disorder of impulse control 312.39 ; Fibromyalgia M79.7 ; Hypertension I10 ; Unspecified episodic mood disorder 296.90 and Left hip pain M25.552 [place] [address] [address] 78[address] 04 May, 2015 Anxiety F41.9 ; Unspecified episodic mood disorder 296.90 ; Other disorder of impulse control 312.39 and Combinations of drug dependence excluding opioid type drug, unspecified abuse 304.80 [facility] [id number] [place] [address] 55459- 9581 30 Apr, 2015 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 and 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, implants and grafts, initial encounter T84.82XA [facility] [id number] [place] [address] 47393- 0490 28 Apr, 2015 Anxiety F41.9 ; Unspecified episodic mood disorder 296.90 ; Combinations of drug dependence excluding opioid type drug, unspecified abuse 304.80 and Other disorder of impulse control 312.39 [place] [address] [id number] [place] [address] 98034- 7636 Apr, Arthritis M19.90 [facility] [id number] [place] [address] 96949- 7835 Apr, Anxiety F41.9 ; Unspecified episodic mood disorder 296.90 ; Combinations of drug dependence excluding opioid type drug, unspecified abuse 304.80 and Other disorder of impulse control 312.39 [facility] [id number] [place] [address] 59802- 3715 17 Apr, 2015 Arthritis M19.90 [facility] [id number] [place] [address] 51841- 8896 15 Apr, 2015 [facility] [id number] [place] [address] 64524- 3388 15 Apr, 2015 [place] [address] [address] [id number] [place] [address] 58276- 4690 14 Apr, 2015 Unspecified episodic mood disorder 296.90 ; Combinations of drug dependence excluding opioid type drug, unspecified abuse 304.80 ; Other disorder of impulse control 312.39 and Anxiety F41.9 [facility] [id number] [place] [address] 91583 -4384 Apr, Left knee pain M25.562 [place] [address] [id number] [place] [address] 89966- 9526 Apr, [place] [address] [id number] [place] [address] 62082- 2048 Mar, Unspecified episodic mood disorder 296.90 ; Anxiety F41.9 ; Other disorder of impulse control 312.39 and Combinations of drug dependence excluding opioid type drug, unspecified abuse 304.80 [place] [address] [id number] [place] [address] 90233- 7401 Mar, Hyperpigmentation L81.9 [place] [address] [id number] [place] [address] 24682- 6764 Mar, Arthritis M19.90 and Anxiety F41.[address] 35405- 1452 Mar, Unspecified episodic mood disorder F39 ; Combined drug dependence excluding opioids, 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 ; Other disorder of impulse control F63.89 and Anxiety F41.9 [place] [address] [id number] [place] [address] 99499- 1423 12 Mar, 2015 Well woman exam Z01.419 ; Other fatigue R53.83 ; Hot flashes N95.1 ; Depression, unspecified depression type F32.9 and Body mass index (BMI) of 23.0-23.9 in adult Z68.23 [place] [id number] [place] [address] 53125- 9103 11 Mar, 2015 Unspecified episodic mood disorder 296.90 ; Other disorder of impulse control 312.39 and Anxiety F41.9 [place] [address] [id number] [place] [address] 67730- 1554 11 Mar, 2015 Well woman exam Z01.419 [...] of breast Z12.39 and Limited mobility Z74.[address] 92096- 0511 Mar, [address] 39995- 8765 Mar, [address] 14342- 2657 Mar, [address] 24677- 3158 Mar, Other specified complication of internal orthopedic prosthetic devices, implants and grafts, initial encounter T84.89XA ; Fibromyalgia M79.7 ; Hypertension I10 ; Anemia D64.9 ; Insomnia G47.00 ; Anxiety F41.9 ; Arthritis M19.90 and Migraine G43.909 [place] [id number] [place] [address] 80886- 3545 Mar, [address] 31322- 4186 Feb, [address] 15635- 1514 Feb, Arthritis M19.90 and Anxiety F41.[address] 69393- 4791 Feb, [place] [id number] [place] [address] 25361- 3847 Feb, [id number] [place] [address]- 3820 Feb, [facility] [id number] [place] [address]- 3038 Feb, [facility] [id number] [place] [address]- 6585 18 Feb, 2015 Anxiety F41.9 [facility] [id number] [place] [address] 84076- 0481 15 Feb, 2015 [facility] [address] [address]- 7411 Feb, [facility] [address] [id number] [place] [address], [place] [address]- 7715 Feb, 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 and Fibromyalgia M79.7 [facility] [id number] [address]- 3806 Feb, [facility] [id number] [address]- 2075 Jan, [facility] [id number] [address]- 0739 Jan, [facility] [id number] [place] [address]- 7982 Jan, [facility] [id number] [address]- 0375 24 Jan, 2015 [facility] [address] [address]- 5583 16 Jan, 2015 [facility] [address] [address]- 8007 08 Jan, 2015 [facility] [address] [address]- 6522 07 Jan, 2015 [facility] [address] [id number] [address]- 7098 07 Jan, 2015 [facility] [address] [address]- 5643 Dec, [facility] [address] [id number] [place] [address] 87150- 3785 Dec, Left knee pain M25.562 [facility] [id number] [place] [address] 63735- 5572 Dec, Left knee pain M25.562 [facility] [id number] [place] [address] 58693- 6100 Dec, Fibromyalgia M79.7 ; Hypertension I10 and Arthritis M19.90 [facility] [address] [id number] [place] [address] 74921- 7827 Dec, [facility] [id number] [place] [address] 78523- 8497 Dec, [facility] [id number] [place] [address] 94368- 9992 Dec, [facility] [id number] [place] [address] 58255- 7511 Dec, [facility] [id number] [place] [address] 34956- 6874 Nov, [facility] [id number] [place] [address] 43773- 5282 Nov, [facility] [id number] [place] [address] 81211- 6719 Nov, [facility] [id number] [place] [address] 06804- 0172 Nov, Hypertension I10 [facility] [id number] [place] [address] 44832- 1394 Oct, [facility] [address] [address]- 0726 Oct, [facility] [id number] [place] [address] 39302- 5043 Oct, [facility] [place] [facility] [address] [id number] [place] [address]- 0577 Oct, [facility] [place] [facility] [address] [id number] [place] [address]- 4555 Oct, [facility] [place] [facility] [address] [id number] [place] [address]- 0293 Sep, [facility] [place] [facility] [address] [id number] [place] [address]- 2861 Sep, [facility] [place] [facility] [address] [id number] [place] [address]- 7006 Sep, Hip pain associated with recalled total hip arthroplasty hardware 996.77 [facility] [place] [facility] [address] [id number] [place] [address]- 9516 Sep, [facility] [place] [facility] [address] [id number] [place] [address]- 9081 Sep, [facility] [place] [facility] [address] [id number] [place] [address]- 1915 Sep, [facility] [place] [facility] [address] [id number] [place] [address]- 8083 Aug, [facility] [place] [facility] [address] [facility] [id number] [place] [address]- 2608 Jul, [facility] [place] [facility] [address] [id number] [place] [address]- 4783 June, [facility] [place] [facility] [address] [id number] [place] [address]- 5498 June, [facility] [place] [facility] [address] [id number] [place] [address]- 7114 June, [facility] [place] [facility] [address] [id number] [place] [address]- 2426 June, [facility] [place] [facility] [address] [id number] [place] [address]- 2705 June, [facility] [place] [facility] [address] [id number] [place] [address]- 5933 June, [facility] [place] [facility] [address] [id number] [place] [address]- 7869 May, [facility] [place] [facility] [address] [id number] [place] [address]- 1756 May, [facility] [place] [facility] [address] [id number] [place] [address]- 6062 May, [facility] [place] [facility] [address] [id number] [place] [address]- 7215 Apr, [facility] [place] [facility] [address] [id number] [place] [address]- 8858 Apr, [facility] [place] [facility] [address] [id number] [place] [address]- 2181 Apr, [facility] [place] [facility] [address] [id number] [place] [address]- 1653 Apr, [facility] [place] [facility] [address] [id number] [place] [address]- 4957 Apr, [facility] [place] [facility] [address] [id number] [place] [address]- 7071 Apr, [facility] [place] [facility] [address] [id number] [place] [address]- 5658 Apr, [facility] [place] [facility] [address] [id number] [place] [address]- 5032 Apr, [facility] [place] [facility] [address] [id number] [place] [address]- 4872 Apr, [facility] [place] [facility] [address] [id number] [place] [address]- 5544 Apr, [facility] [place] [facility] [address] [id number] [place] [address]- 5010 Apr, [facility] [place] [facility] [address] [id number] [place] [address]- 2441 Mar, 2014 [facility] [place] [facility] [address] [id number] [place] [address]- 2276 Mar, 2014 [facility] [place] [facility] [address] [id number] [place] [address]- 7046 16 Mar, 2014 [facility] [place] [facility] [address] [id number] [place] [address]- 8566 16 Mar, 2014 [facility] [place] [facility] [address] [id number] [place] [address]- 6236 Mar, 2014 [facility] [place] [facility] [address] [id number] [place] [address]- 4407 Mar, [facility] [place] [facility] [address] [id number] [place] [address]- 4116 Feb, [facility] [place] [facility] [address] [id number] [place] [address]- 7581 Feb, [facility] [place] [facility] [address] [id number] [place] [address]- 5343 Feb, [facility] [place] [facility] [address] [id number] [place] [address]- 8528 Feb, [facility] [place] [facility] [address] [facility] [id number] [place] [address]- 3321 Jan, [facility] [place] [facility] [address] [id number] [place] [address]- 7795 Jan, [facility] [place] [facility] [address] [id number] [place] [address]- 6851 Jan, [facility] [place] [facility] [address] [id number] [place] [address]- 1680 Jan, [facility] [place] [facility] [address] [id number] [place] [address]- 3246 Dec, [facility] [place] [facility] [address] [id number] [place] 6599 Dec, [facility] [place] [facility] [address] [id number] [place] [address]- 0436 Dec, [facility] [place] [facility] [address] [id number] [place] [address]- 9184 Dec, [facility] [place] [facility] [address] [id number] [place] [address]- 1626 Dec, [facility] [place] [facility] [address] [id number] [place] [address]- 7587 Dec, [facility] [place] [facility] [address] [id number] [place] [address]- 2329 Dec, [facility] [place] [facility] [address] [id number] [place] [address]- 3113 Dec, [facility] [place] [facility] [address] [id number] [place] [address]- 7977 Dec, [facility] [place] [facility] [address] [id number] [place] [address]- 4216 Dec, [facility] [place] [facility] [address] [id number] [place] [address]- 7810 Dec, [facility] [place] [facility] [address] [id number] [place] [address]- 1984 Nov, [facility] [place] [facility] [address] [id number] [place] [address]- 7221 Nov, [facility] [place] [facility] [address] [id number] [place] [address]- 5920 28 Nov, 2013 [facility] [place] [facility] [address] [id number] [place] [address]- 2983 Nov, [facility] [place] [facility] [address] [id number] [place] [address]- 4342 17 Nov, 2013 [facility] [place] [facility] [address] [id number] [place] [address]- 3925 15 Nov, 2013 [facility] [place] [facility] [address] [id number] [place] [address]- 4108 15 Nov, 2013 [facility] [place] [facility] [address] [id number] [place] [address]- 9221 15 Nov, 2013 [facility] [place] [facility] [address] [id number] [place] [address]- 0835 15 Nov, 2013 [facility] [place] [facility] [address] [id number] [place] [address]- 9570 14 Nov, 2013 [facility] [place] [facility] [address] [id number] [place] [address]- 6569 14 Nov, 2013 [facility] [place] [facility] [address] [id number] [place] [address]- 5597 14 Nov, 2013 [facility] [place] [facility] [address] [id number] [place] [address]- 8167 14 Nov, 2013 [facility] [place] [facility] [address] [id number] [place] [address]- 5667 13 Nov, 2013 [facility] [place] [facility] [address] [id number] [address]- 5048 13 Nov, 2013 [facility] [place] [facility] [address] [id number] [place] [address]- 6253 11 Nov, 2013 [facility] [place] [facility] [address] [id number] [address]- 7516 11 Nov, 2013 [facility] [place] [facility] [address] [id number] [address]- 3926 07 Nov, 2013 [facility] [place] [facility] [address] [id number] [address]- 8727 07 Nov, 2013 [facility] [place] [facility] [address] [id number] [place] [address]- 6679 07 Nov, 2013 [facility] [place] [facility] [address] [id number] [address]- 2261 07 Nov, 2013 [facility] [place] [facility] [address] [id number] [address]- 2113 30 Oct, 2013 [facility] [place] [facility] [address] [id number] [place] [address]- 8684 30 Oct, 2013 [facility] [place] [facility] [address] [id number] [place] [address] 2546 26 Oct, 2013 [facility] [place] [facility] [address] [id number] [place] [address] 2546 26 Oct, 2013 [facility] [place] [facility] [address] [id number] [place] [address]- 9426 22 Oct, 2013 [facility] [place] [facility] [address] [id number] [place] [address] 2549 22 Oct, 2013 [facility] [place] [facility] [address] [id number] [place] [address]- 9119 18 Oct, 2013 [facility] [place] [facility] [address] [id number] [place] [address]- 2112 18 Oct, 2013 [facility] [place] [facility] [address] [id number] [place] [address]- 6869 18 Oct, 2013 [facility] [place] [facility] [address] [id number] [place] [address]- 9022 18 Oct, 2013 [facility] [place] [facility] [address] [id number] [place] [address]- 8817 12 Oct, 2013 [facility] [place] [facility] [address] [id number] [place] [address]- 2541 12 Oct, 2013 [facility] [place] [facility] [address] [id number] [place] [address] 2545 Oct, 2013 [facility] [place] [facility] [address] [id number] [place] [address]- 2545 Oct, 2013 [facility] [place] [facility] [address] [id number] [place] [address]- 8808 Sep, [facility] [place] [facility] [address] [id number] [place] [address]- 7695 Sep, [facility] [place] [facility] [address] [id number] [place] [address]- 3761 Sep, [facility] [place] [facility] [address] [id number] [place] [address]- 7921 Sep, [facility] [place] [facility] [address] [id number] [place] [address]- 2758 Sep, [facility] [place] [facility] [address] [id number] [place] [address]- 1359 Sep, [facility] [place] [facility] [address] [id number] [place] [address]- 2903 Sep, [facility] [place] [facility] [address] [id number] [place] [address]- 7281 Sep, [facility] [place] [facility] [address] [id number] [place] [address]- 8290 Sep, [facility] [place] [facility] [address] [id number] [place] [address]- 3650 Sep, [facility] [place] [facility] [address] [id number] [place] [address]- 1292 Sep, [facility] [place] [facility] [address] [id number] [place] [address]- 7413 Sep, [facility] [place] [facility] [address] [id number] [place] [address]- 8728 Sep, [facility] [place] [facility] [address] [id number] [place] [address]- 2218 Sep, [facility] [place] [facility] [address] [id number] [place] [address]- 0140 Sep, [facility] [place] [facility] [address] [id number] [place] [address]- 5921 Sep, [facility] [place] [facility] [address] [id number] [place] [address]- 4060 Sep, [facility] [place] [facility] [address] [id number] [place] [address]- 9787 Sep, [facility] [place] [facility] [address] [id number] [place] [address]- 9822 Aug, [facility] [place] [facility] [address] [id number] [place] [address]- 6955 Aug, [facility] [place] [facility] [address] [id number] [place] [address]- 3104 Aug, [facility] [place] [facility] [address] [id number] [place] [address]- 5407 Aug, [facility] [place] [facility] [address] [id number] [place] [address]- 3918 Aug, [facility] [place] [facility] [address] [id number] [place] [address]- 6287 Aug, [facility] [place] [facility] [address] [id number] [place] [address]- 4991 Jul, [facility] [place] [facility] [address] [id number] [place] [address]- 3351 Jul, [facility] [place] [facility] [address] [id number] [place] [address] Jul, [facility] [place] [facility] [address] [id number] [place] [address] Jul, [facility] [place] [facility] [address] [id number] [place] [address] June, [facility] [place] [facility] [address] [id number] [place] [address] June, [facility] [place] [facility] [address] [id number] [place] [address] June, [facility] [place] [facility] [address] [id number] [place] [address] June, [facility] [place] [facility] [address] [id number] [place] [address] June, [facility] [place] [facility] [address] [id number] [place] [address] June, [facility] [place] [facility] [address] [id number] [place] [address] June, [facility] [place] [facility] [address] [id number] [place] [address] May, [facility] [place] [facility] [address] [id number] [place] [address] May, [facility] [place] [facility] [address] [id number] [place] [address] May, [facility] [place] [facility] [address] [id number] [place] [address] May, [facility] [place] [facility] [address] [id number] [place] [address] May, [facility] [place] [facility] [address] [id number] [place] [address] May, [facility] [place] [facility] [address] [id number] [place] [address] 31 Apr, 2013 [facility] [place] [facility] [address] [id number] [place] [address] 31 Apr, 2013 [facility] [place] [facility] [address] [id number] [place] [address] 28 Apr, 2013 [facility] [place] [facility] [address] [id number] [place] [address] 28 Apr, 2013 [facility] [place] [facility] [address] [id number] [place] [address] 14 Apr, 2013 [facility] [place] [facility] [address] [id number] [place] [address] 14 Apr, 2013 [facility] [place] [facility] [address] [id number] [place] [address]- [address] 12 Apr, 2013 [facility] [place] [facility] [address] [id number] [place] [address] 12 Apr, 2013 [facility] [place] [facility] [address] [id number] [place] [address] Apr, [facility] [place] [facility] [address] [id number] [place] [address] Apr, [facility] [place] [facility] [address] [id number] [place] [address]- [address] Apr, [facility] [place] [facility] [address] [id number] [place] [address] Apr, [facility] [place] [facility] [address] [id number] [place] [address]- [address] Apr, [facility] [place] [facility] [address] [id number] [place] [address] Apr, [facility] [place] [facility] [address] [id number] [place] [address] Mar, [facility] [place] [facility] [address] [id number] [place] [address] Mar, [facility] [place] [facility] [address] [id number] [place] [address] Mar, [facility] [place] [facility] [address] [id number] [place] [address] Feb, [facility] [place] [facility] [address] [id number] [place] [address] Feb, [facility] [place] [facility] [address] [id number] [place] [address] Feb, [facility] [place] [facility] [address] [id number] [place] [address] Feb, [facility] [place] [facility] [address] [id number] [place] [address] Feb, [facility] [place] [facility] [address] [id number] [place] [address] Feb, [facility] [place] [facility] [address] [id number] [place] [address] Feb, [facility] [place] [facility] [address] [id number] [place] [address]- [address] Feb, [facility] [address] [id number] [place] [address] Feb, [facility] [address] [id number] [place] [address]- [address] Feb, [facility] [address] [id number] [place] [address]- [address] Jan, [facility] [address] [id number] [place] [address]- [address] 30 Jan, 2013 [facility] [address] [id number] [place] [address] Jan, [facility] [address] [id number] [place] [address] Jan, [facility] [address] [id number] [place] [address] 7[address] Jan, [facility] [address] [id number] [place] [address] 9114 Jan, [facility] [address] [id number] [place] [address] 2134 Jan, [facility] [address] [id number] [place] [address] 3123 Jan, [facility] [address] [id number] [place] [address] 7346 Jan, [facility] [address] [id number] [place] [address] 3211 19 Jan, 2013 [facility] [place] [facility] [address] [id number] [place] [address]- 9909 17 Jan, 2013 [facility] [place] [facility] [address] [id number] [place] [address] 17 Jan, 2013 [facility] [address] [id number] [place] [address]- 0691 Jan, [facility] [place] [facility] [address] [id number] [place] [address]- 7575 Jan, [facility] [address] [id number] [place] [address]- 3021 Jan, [facility] [address] [id number] [place] [address]- 5170 Jan, [facility] [address] [id number] [place] [address]- 7692 Jan, [facility] [address] [id number] [place] [address]- 2346 Jan, [facility] [address] [id number] [place] [address]- 7509 Jan, [facility] [address] [id number] [place] [address]- 1084 Jan, [facility] [address] [id number] [place] [address]- 2828 Jan, [facility] [address] [id number] [place] [address]- 0362 Dec, [facility] [address] [id number] [place] [address]- 3462 Dec, [facility] [address] [id number] [place] [address]- 3606 Dec, [facility] [place] [facility] [address] [id number] [address] 0154 Dec, [facility] [place] [facility] [address] [id number] [place] [address]- 7170 Dec, [facility] [place] [facility] [address] [id number] [place] [address]- 5449 Dec, [facility] [place] [facility] [address] [id number] [place] [address]- 6018 Dec, [facility] [place] [facility] [address] [id number] [address]- 0120 Dec, [facility] [place] [facility] [address] [id number] [place] [address]- 1048 Dec, [facility] [place] [facility] [address] [id number] [place] [address]- 3868 Dec, [facility] [place] [facility] [address] [id number] [place] [address]- 1820 Nov, [facility] [place] [facility] [address] [id number] [place] [address]- 9595 Nov, [facility] [place] [facility] [address] [id number] [place] [address]- 9341 Nov, [facility] [place] [facility] [address] [id number] [place] [address]- 5239 Nov, [facility] [place] [facility] [address] [id number] [address]- 1486 Nov, [facility] [place] [facility] [address] [id number] [place] [address]- 3789 Nov, [facility] [place] [facility] [address] [id number] [place] [address]- 6034 Nov, [facility] [place] [facility] [address] [id number] [place] [address]- 6973 Nov, [facility] [place] [facility] [address] [id number] [address]- 1111 Nov, [facility] [place] [facility] [address] [id number] [address]- 3518 Nov, [facility] [place] [facility] [address] [id number] [place] [address]- 2863 Oct, [facility] [place] [facility] [address] [id number] [place] [address]- 3743 Oct, [facility] [place] [facility] [address] [id number] [place] [address]- 2648 Oct, [facility] [place] [facility] [address] [id number] [place] [address]- 2546 Oct, [facility] [address] [id number] [place] [address]- 6966 Oct, [facility] [address] [id number] [place] [address]- 2546 Sep, [facility] [address] [id number] [place] [address]- 2546 Sep, [facility] [address] [id number] [place] [address]- 0277 Aug, [facility] [address] [id number] [place] [address]- 8255 Aug, [facility] [address] [id number] [place] [address]- 3996 Aug, [facility] [address] [id number] [place] [address]- 5145 Aug, [facility] [address] [id number] [place] [address]- 0642 Aug, [facility] [address] [id number] [place] [address]- 8180 Aug, [facility] [address] [id number] [place] [address]- 5114 Aug, [facility] [address] [id number] [place] [address]- 4471 Jul, [facility] [address] [id number] [place] [address]- 4379 Jul, [facility] [place] [facility] [address] [id number] [place] [address]- 6615 June, [facility] [address] [id number] [place] [address]- 2546 June, [facility] [address] [id number] [place] [address]- 4398 June, [facility] [address] [id number] [place] [address]- 7488 June, [facility] [address] [id number] [place] [address]- 1514 June, [facility] [address] [id number] [place] June, [facility] [address] [id number] [place] [address]- 0590 June, [facility] [address] [id number] [place] [address]- 5543 June, [facility] [address] [id number] [place] [address]- 7526 June, [facility] [address] [id number] [place] [address]- 2887 June, [facility] [address] [id number] [place] [address]- 4565 June, [facility] [address] [id number] [place] [address]- 4121 May, [facility] [address] [id number] [place] [address]- 1236 May, [facility] [address] [id number] [place] [address]- 6693 May, [facility] [place] [facility] [address] [id number] [place] [address]- 0844 May, [facility] [place] [facility] [address] [id number] [place] [address]- 2518 Apr, [facility] [place] [facility] [address] [id number] [place] [address]- 1435 Apr, [facility] [place] [facility] [address] [id number] [place] [address]- 1016 Apr, [facility] [place] [facility] [address] [id number] [place] [address]- 5021 Mar, [facility] [address] [id number] [place] [address]- 7436 Mar, [facility] [address] [id number] [place] [address]- 7176 Feb, [facility] [address] [id number] [place] [address]- 9126 Feb, [facility] [address] [id number] [place] [address]- 6646 Feb, [facility] [address] [id number] [place] [address]- 6732 Feb, [facility] [address] [id number] [place] [address]- 3884 16 Feb, 2012 [facility] [address] [id number] [place] [address]- 5481 Feb, [facility] [address] [id number] [place] [address]- 0404 Feb, [facility] [address] [id number] [place] [address]- 2876 31 Jan, 2012 [facility] [address] [id number] [place] [address]- 7894 Jan, [facility] [address] [id number] [place] [address]- 7563 Jan, [facility] [address] [id number] [place] [address]- 1341 Jan, [facility] [address] [id number] [place] [address]- 6994 Jan, [facility] [address] [id number] [place] [address]- 8630 Jan, [facility] [address] [id number] [place] [address]- 0292 Jan, [facility] [place] [facility] [address] [id number] [place] [address]- 2968 Jan, [facility] [place] [facility] [address] [id number] [place] [address]- 9912 Jan, [facility] [place] [facility] [address] [id number] [place] [address]- 8146 Jan, [facility] [place] [facility] [address] [id number] [place] [address]- 9456 Jan, [facility] [place] [facility] [address] [id number] [place] [address]- 2803 Dec, [facility] [place] [facility] [address] [id number] [place] [address]- 1739 Dec, [facility] [place] [facility] [address] [id number] [place] [address]- 7537 Dec, [facility] [place] [facility] [address] [id number] [place] [address]- 0975 Dec, [facility] [place] [facility] [address] [id number] [place] [address]- 7550 Nov, [facility] [place] [facility] [address] [id number] [place] [address]- 5818 Nov, [facility] [place] [facility] [address] [id number] [place] [address]- 0591 Nov, [facility] [place] [facility] [address] [id number] [place] [address]- 6536 27 Oct, 2011 [facility] [place] [facility] [address] [id number] [place] [address]- 1052 24 Oct, 2011 [facility] [place] [facility] [address] [id number] [place] [address]- 6221 21 Oct, 2011 [facility] [place] [facility] [address] [id number] [place] [address]- 6126 10 Oct, 2011 [facility] [place] [facility] [address] [id number] [place] [address]- 4186 07 Oct, 2011 [facility] [place] [facility] [address] [id number] [place] [address]- 0961 Oct, [facility] [place] [facility] [address] [id number] [place] [address]- 4356 04 Oct, 2011 [facility] [place] [facility] [address] [id number] [place] [address]- 8734 Sep, [facility] [place] [facility] [address] [id number] [place] [address]- 2067 Sep, [facility] [place] [facility] [address] [id number] [place] [address]- 8843 Sep, [facility] [place] [facility] [address] [id number] [place] [address]- 4086 Sep, [facility] [place] [facility] [address] [id number] [place] [address]- 0390 Sep, [facility] [place] [facility] [address] [id number] [place] [address]- 7170 Aug, [facility] [place] [facility] [address] [id number] [place] [address]- 3603 Aug, [facility] [place] [facility] [address] [id number] [place] [address]- 2235 Aug, [facility] [place] [facility] [address] [id number] [place] [address]- 8564 16 Aug, 2011 [facility] [place] [facility] [address] [id number] [place] [address]- 7667 Aug, [facility] [place] [facility] [address] [id number] [place] [address]- 9225 Aug, [facility] [place] [facility] [address] [id number] [place] [address]- 2754 Aug, [facility] [place] [facility] [address] [id number] [place] [address]- 3402 Jul, [facility] [place] [facility] [address] [id number] [place] [address]- 5390 26 Jul, 2011 [facility] [address] [id number] [place] [address]- 2562 Jul, [facility] [place] [facility] [address] [id number] [place] [address]- 6123 Jul, [facility] [address] [id number] [place] [address]- 8543 Jul, [facility] [place] [facility] [address] [id number] [place] [address]- 8129 Jul, [facility] [address] [id number] [place] [address]- 6523 07 Jul, 2011 [facility] [address] [id number] [place] [address]- 3766 Jul, [facility] [address] [id number] [place] [address]- 4353 05 Jul, 2011 [facility] [address] [id number] [place] [address]- 1885 June, [facility] [address] [id number] [place] [address]- 9536 June, [facility] [address] [id number] [place] [address]- 4911 June, [facility] [place] [facility] [address] [id number] [place] [address]- 9730 June, [facility] [address] [id number] [place] [address]- 9091 June, [facility] [place] [facility] [address] [id number] [place] [address]- 5726 June, [facility] [place] [facility] [address] [id number] [place] [address]- 9453 June, [facility] [address] [id number] [place] [address]- 5611 June, [facility] [address] [id number] [place] [address]- 1634 May, [facility] [place] [facility] [address] [id number] [place] [address]- 3746 May, [facility] [place] [facility] [address] [id number] [place] [address]- 1706 May, [facility] [place] [facility] [address] [id number] [place] [address]- 2136 May, [facility] [place] [facility] [address] [id number] [place] [address]- 5489 May, [facility] [place] [facility] [address] [id number] [place] [address]- 3996 May, [facility] [place] [facility] [address] [id number] [place] [address]- 1296 May, [facility] [place] [facility] [address] [id number] [place] [address]- 9542 Apr, [facility] [place] [facility] [address] [id number] [place] [address]- 4066 Apr, [facility] [place] [facility] [address] [id number] [place] [address]- 3388 Apr, [facility] [place] [facility] [address] [id number] [place] [address]- 0296 Apr, [facility] [place] [facility] [address] [id number] [address]- 8246 Apr, [facility] [place] [facility] [address] [id number] [place] [address]- 4786 Apr, [facility] [place] [facility] [address] [id number] [place] [address]- 8126 Apr, [facility] [place] [facility] [address] [id number] [place] [address]- 5936 Mar, [facility] [place] [facility] [address] [id number] [address]- 7595 20 Mar, 2011 [facility] [address] [id number] [place] [address]- 3036 14 Mar, 2011 [facility] [address] [id number] [place] [address]- 0076 13 Mar, 2011 [facility] [address] [id number] [place] [address]- 2986 Mar, [facility] [address] [id number] [place] [address] 2546 Mar, [facility] [address] [id number] [place] [address]- 0406 Mar, [facility] [address] [id number] [place] [address]- 8186 Feb, [facility] [address] [id number] [place] [address]- 8083 Feb, [facility] [address] [id number] [place] [address]- 0645 Feb, [facility] [address] [id number] [place] [address]- 3897 Feb, [facility] [address] [id number] [place] [address]- 3762 Feb, [facility] [address] [id number] [place] [address]- 2916 Feb, [facility] [address] [id number] [place] [address]- 8669 Feb, [facility] [place] [facility] [address] [id number] [place] [address]- 6008 Feb, [facility] [place] [facility] [address] [id number] [place] [address]- 0306 Feb, [facility] [address] [id number] [place] [address]- 6746 Feb, [facility] [place] [facility] [address] [id number] [place] [address]- 5835 Jan, [facility] [place] [facility] [address] [id number] [place] [address]- 4906 Jan, [facility] [place] [facility] [address] [id number] [place] [address]- 9660 Jan, [facility] [place] [facility] [address] [id number] [place] [address]- 8076 Jan, [facility] [place] [facility] [address] [id number] [place] [address]28 Jan, [facility] [place] [facility] [address] [id number] [place] [address]- 3776 Jan, [facility] [place] [facility] [address] [id number] [place] [address]- 8435 Jan, [facility] [place] [facility] [address] [id number] [place] [address]- 4822 Jan, [facility] [place] [facility] [address] [id number] [place] [address]- 3631 Jan, [facility] [place] [facility] [address] [id number] [place] [address] Jan, [facility] [place] [facility] [address] [id number] [place] [address]- 3030 Jan, [facility] [place] [facility] [address] [id number] [place] [address]- 2560 Dec, [facility] [place] [facility] [address] [id number] [place] [address]- 4061 Dec, [facility] [place] [facility] [address] [id number] [place] [address]- 5140 Dec, [facility] [place] [facility] [address] [id number] [place] [address]- 3990 16 Dec, 2010 [facility] [place] [facility] [address] [id number] [address]- 2617 14 Dec, 2010 [facility] [place] [facility] [address] [id number] [place] [address]- 7522 Dec, [facility] [place] [facility] [address] [id number] [place] 3356 08 Dec, 2010 [facility] [place] [facility] [address] [id number] [place] [address]- 0894 Dec, [facility] [place] [facility] [address] [id number] [place] [address]- 7937 Dec, [facility] [place] [facility] [address] [id number] [place] [address]- 4548 Nov, [facility] [place] [facility] [address] [id number] [place] [address]- 5568 Nov, [facility] [place] [facility] [address] [id number] [place] [address]- 7896 Nov, [facility] [place] [facility] [address] [id number] [place] [address]- 8177 24 Nov, 2010 [facility] [place] [facility] [address] [id number] [place] [address] 24 Nov, 2010 [facility] [place] [facility] [address] [id number] [place] [address] Nov, [facility] [place] [facility] [address] [id number] [address] Aug, [facility] [place] [facility] [address] [id number] [place] [address] 14 Feb, 2010 [facility] [place] [facility] [address] [id number] [place] [address] 14 Jan, 2010 [facility] [place] [facility] [address] [id number] [place] [address] 06 Jan, 2010 [facility] [place] [facility] [address] [id number] [place] [address] Jan, [facility] [place] [facility] [id number] [address] Jan, [facility] [id number] [address] Jan, [facility] [id number] [address] Dec, [facility] [id number] [address] Dec, [facility] [id number] [address] Dec, [facility] [id number] [place] [address] Dec, [facility] [id number] [id number] Nov, [facility] [id number] [address] Nov, [facility] [id number] [address] Nov, IMMUNIZATIONS No Known Immunizations SOCIAL HISTORY Never Assessed REASON FOR VISIT PLAN OF CARE VITAL SIGNS MEDICATIONS Unknown [...]
--- OUTSIDE RECORDS SUMMARY | 2018-01-13 21:55 | XMS REPORT ---
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 Active 165872963 Problem Hypertension I10 Active 76151405 Problem Arthritis M19.90 Active 1294080 Problem 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 Active 88578458 Problem Anxiety F41.9 Active 22132999 Problem Unspecified episodic mood disorder F39 Active 74585281 Problem Left hip pain M25.552 Active 19842614 ALLERGIES No Information ENCOUNTERS Encounter Location Date Diagnosis [facility] [address] [facility] [id number] [address] Nov, [facility] [id number] [address] Oct, [facility] [address] [facility] [id number] [address] Oct, [facility] [id number] [place] [address] 13388- 4012 Oct, Arthritis M19.90 and Unspecified episodic mood disorder F39 [facility] [id number] [place] [address] 00194- 8467 Sep, Chronic hepatitis C without hepatic coma B18.2 [facility] [id number] [place] [address] 49583- 0429 Sep, Gastroesophageal reflux disease, esophagitis presence not specified K21.9 and Other chronic pain G89.29 [facility] [id number] [place] [address] 77167- 1347 Sep, [facility] [id number] [place] [address] 81933- 2189 Sep, [facility] [id number] [place] [address] 85717- 3974 Sep, Chronic hepatitis C without hepatic coma B18.2 [facility] [id number] [place] [address] 35077- 7831 Sep, 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 [facility] [id number] [place] [address] 83397- 4006 Sep, Arthritis M19.90 [facility] [id number] [place] [address] 63662- 0144 Sep, [facility] [id number] [place] [address] 73643- 1677 Sep, Unspecified episodic mood disorder F39 [facility] [id number] [place] [address] 71619- 2266 Aug, [facility] [place] [id number] [place] [address] [id number] Aug, [facility] [id number] [place] [address] 05028- 7335 Aug, Arthritis M19.90 [facility] [id number] [place] [address] 59290- 0820 Aug, [facility] [id number] [place] [address] 48031- 4809 Aug, Obesity (BMI 30.0-34.9) E66.9 ; Unspecified episodic mood disorder F39 and Hypertension I10 [facility] [id number] [place] [address] 21335- 7001 Aug, Unspecified episodic mood disorder F39 [facility] [id number] [place] [address] 55709- 3374 Aug, [facility] [id number] [place] [address] 22381- 2136 Jul, Unspecified episodic mood disorder F39 [facility] [id number] [place] [address] 01859- 3221 Jul, [facility] [id number] [place] [address] 89262- 6846 Jul, Arthritis M19.90 [facility] [id number] [place] [address] 82717- 2540 Jul, Left hip pain M25.552 ; Hypertension I10 ; Other obesity due to excess calories E66.09 and Body mass index (BMI) of 34.0-34.9 in adult Z68.34 [facility] [id number] [place] [address] 46222- 8731 Jul, Unspecified episodic mood disorder F39 [facility] [id number] [place] [address] 49192- 8320 June, Gastroesophageal reflux disease, esophagitis presence not specified K21.9 [facility] [id number] [place] [address] 69770- 9567 June, [facility] [id number] [place] [address] 65524- 0975 June, [facility] [address], [place] [address] 6893 June, Arthritis M19.90 [facility] [address], [place] [address] 7900 June, [facility] [address], [place] [address] 0120 June, [facility] [id number] [place] [address] 42750- 2737 June, Unspecified episodic mood disorder F39 [facility] [id number] [place] [address] 59546- 1023 May, Unspecified episodic mood disorder F39 [facility] [address], [place] [address]- 6178 May, [facility] [id number] [place] [address] 44843- 9989 May, Arthritis M19.90 [facility] [address], [place] [address] May, Dysuria R30.0 ; Abscess L02.91 and Acute cystitis without hematuria N30.00 [facility] [address], [place] [address] 8223 May, 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 ; Unspecified episodic mood disorder F39 ; Combined drug dependence excluding opioids, 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 ; Anxiety F41.9 and Other psychoactive substance dependence, 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 [facility] [address], [place] [address]- 3[address] May, [facility] [id number] [place] [address] 23619- 3923 May, 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 ; Unspecified episodic mood disorder F39 ; Combined drug dependence excluding opioids, 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 ; Other psychoactive substance dependence, 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 and Anxiety F41.9 [facility] [id number] [place] [address] 12121- 1086 May, Other chronic pain G89.29 ; Left hip pain M25.552 ; Hypertension I10 ; 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, 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 and Unspecified episodic mood disorder F39 [facility] [id number] [place] [address] 51185- 9730 Apr, [facility] [address] 17855 -2498 Apr, Neck pain M54.2 ; Left hip pain M25.552 and Fall, initial encounter W19.XXXA [facility] [address] 28362- 2957 Apr, Unspecified episodic mood disorder F39 ; Combined drug dependence excluding opioids, 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 ; Anxiety F41.9 ; Other psychoactive substance dependence, 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 and Other disorder of impulse control F63.89 [facility] [id number] [place] [address] 39961- 8943 Apr, [facility] [id number] [place] [address] 25979- 0825 Apr, Arthritis M19.90 and Unspecified episodic mood disorder F39 [facility] [id number] [place] [address] 75351- 5603 Apr, Unspecified episodic mood disorder F39 [facility] [id number] [place] [address] 46769- 3922 Apr, [facility] [id number] [place] [address] 34779- 8330 Apr, [facility] [id number] [place] [address] 08443- 8252 07 Apr, 2017 Unspecified episodic mood disorder F39 ; Combined drug dependence excluding opioids, 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 ; Anxiety F41.9 ; Other psychoactive substance dependence, 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 and Other disorder of impulse control F63.89 [facility] [address], [place] [address] 2546 Mar, Unspecified episodic mood disorder F39 [facility] [id number] [place] [address] 91180- 7176 Mar, Gastroesophageal reflux disease, esophagitis presence not specified K21.9 [facility] [id number] [place] [address] 89753- 5286 Mar, Arthritis M19.90 and Unspecified episodic mood disorder F39 [facility] [id number] [place] [address] 97055 2546 Feb, [facility] [id number] [place] [address] 23625- 2086 Feb, [facility] [id number] [place] [address] 67921- 1946 Feb, [facility] [id number] [place] [address] 14112 2546 Feb, Arthritis M19.90 [facility] [id number] [place] [address] 29919 2546 Feb, Non-pressure chronic ulcer of right calf, 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 ; Unspecified episodic mood disorder F39 and Left hip pain M25.552 [facility] [address], [place] [address] 2546 Feb, [facility] [id number] [place] [address] 34951 2546 Feb, [facility] [id number] [place] [address] 16980 2546 Jan, Arthritis M19.90 [facility] [id number] [place] [address] 04986 2546 Jan, Left hip pain M25.552 and Non-pressure chronic ulcer of right calf, 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 [facility] [id number] [place] [address] 17448- 2726 Jan, Chronic hepatitis C without hepatic coma B18.2 [facility] [id number] [place] [address] 70976- 6614 Jan, Encounter for immunization Z23 ; Venous insufficiency ( chronic) (peripheral) I87.2 ; Non-pressure chronic ulcer of unspecified calf limited to breakdown of skin L97.201 and Gastroesophageal reflux disease, esophagitis presence not specified K21.9 [facility] [id number] [place] [address] 66373- 9359 Jan, [facility] [id number] [place] [address] 31472- 9216 Jan, Chronic hepatitis C without hepatic coma B18.2 and Encounter for immunization Z23 [facility] [id number] [place] [address] 89464- 0400 Jan, Arthritis M19.90 [facility] [id number] [place] [address] 06619- 4153 Jan, [facility] [id number] [place] [address] 05307- 3798 Dec, [facility] [id number] [place] [address] 96263- 3993 Dec, Unspecified episodic mood disorder F39 [facility] [id number] [place] [address] 34821- 7375 Dec, Arthritis M19.90 [facility] [id number] [place] [address] 46065- 1887 Dec, Arthritis M19.90 [facility] [id number] [place] [address] 04200- 8842 Nov, [facility] [id number] [place] [address] 62752- 1542 Nov, [facility] [id number] [place] [address] 14769- 4629 Nov, Other psychoactive substance dependence, 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 ; 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, 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 and Chronic hepatitis C without hepatic coma B18.2 [facility] [id number] [place] [address] 87893- 4338 Nov, Arthritis M19.90 [facility] [id number] [place] [address] 11881 -2328 Oct, Partial thickness burn of abdomen, initial encounter T21.22XA [facility] [id number] [place] [address] 05398- 2773 Oct, [facility] [address] 85166- 1027 Sep, Arthritis M19.90 [facility] [id number] [place] [address] 38075- 2550 Sep, [facility] [id number] [place] [address] 23667- 1680 Sep, [facility] [id number] [place] [address] 35679- 7164 Sep, Unspecified episodic mood disorder F39 ; Chronic hepatitis C without hepatic coma B18.2 and Left hip pain M25.552 [facility] [id number] [place] [address] 33912- 4746 Sep, Arthritis M19.90 and Left hip pain M25.552 [facility] [id number] [place] [address] 98798- 9477 Aug, [facility] [id number] [place] [address] 39147- 5088 Aug, [facility] [id number] [place] [address] 54763- 8484 Aug, Chronic hepatitis C without hepatic coma B18.2 [facility] [id number] [place] [address] 93359- 8494 Aug, [facility] [id number] [place] [address] 30660- 4072 Aug, Chronic hepatitis C without hepatic coma B18.2 [facility] [id number] [place] [address] 76546- 7106 Aug, 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, 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 [facility] [id number] [place] [address] 32952- 6955 Aug, [facility] [id number] [place] [address] 47802- 0445 Aug, Chronic hepatitis C without hepatic coma B18.2 and Hypertension I10 [facility] [id number] [place] [address] 62152- 2899 Jul, [facility] [id number] [place] [address] 63368- 3666 June, [facility] [id number] [place] [address] 09606- 9764 Apr, Fibromyalgia M79.7 ; Left hip pain M25.552 and Decubitus ulcer of sacral region, stage 1 L89.151 [facility] [id number] [place] [address] 28599- 2234 Apr, [facility] [id number] [place] [address] 42397- 0632 Apr, [facility] [id number] [place] [address] 39362- 1101 Feb, [facility] [id number] [place] [address] 89476- 1096 Dec, Anxiety F41.9 ; Combined drug dependence excluding opioids, 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 and Unspecified episodic mood disorder F39 [facility] [id number] [place] [address] 92578- 8108 Dec, [facility] [address] [place] [address]- 0956 Nov, [facility] [id number] [place] [address] 02741- 9169 Nov, [facility] [id number] [place] [address] 61737- 4469 Nov, Other disorder of impulse control F63.89 and Anxiety F41.9 [facility] [id number] [place] [address] 67241- 9354 Oct, [facility] [id number] [place] [address] 42569 -8432 14 Oct, 2015 Open wound of left thigh, initial encounter S71.102A [facility] [id number] [place] [address] 87855- 0603 Oct, [facility] [id number] [place] [address] 02749- 7357 Sep, Unspecified episodic mood disorder F39 ; Other disorder of impulse control 312.39 ; Combined drug dependence excluding opioids, 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 and Anxiety F41.9 [facility] [id number] [place] [address] 99245- 3045 Sep, Other disorder of impulse control 312.39 ; Combined drug dependence excluding opioids, 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 ; Anxiety F41.9 and Unspecified episodic mood disorder F39 [facility] [id number] [place] [address] 00542- 5159 Sep, Other chronic pain G89.29 [facility] [id number] [place] [address] 89044- 1199 Sep, [facility] [id number] [place] [address] 45067- 0471 Sep, [facility] [id number] [place] [address] 79350- 2799 Aug, [facility] [id number] [place] [address] 04647- 9460 Aug, [facility] [address], [place] [address]- 3855 Aug, [facility] [id number] [place] [address] 23286- 7245 Jul, [facility] [id number] [place] [address] 26726- 5025 Jul, [facility] [id number] [place] [address] 29881- 9294 Jul, [facility] [id number] [place] [address] 03487- 4635 Jul, Arthritis M19.90 ; Chronic hepatitis C without hepatic coma B18.2 and Left hip pain M25.552 [facility] [id number] [place] [address] 05958- 0395 Jul, Left knee pain M25.562 [facility] [id number] [place] [address] 08425- 5418 Jul, Combined drug dependence excluding opioids, 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 ; Anxiety F41.9 ; Other disorder of impulse control 312.39 and Unspecified episodic mood disorder F39 [facility] [id number] [place] [address] 67944- 7828 Jul, Left knee pain M25.562 [facility] [id number] [place] [address] 46913- 7403 Jul, Left knee pain M25.562 and Left hip pain M25.552 [facility] [id number] [place] [address] 51370- 7653 Jul, [facility] [id number] [place] [address] 82125- 1918 June, [facility] [id number] [place] [address] 82752- 7670 June, Combinations of drug dependence excluding opioid type drug, unspecified abuse 304.80 ; Other disorder of impulse control 312.39 ; Unspecified episodic mood disorder F39 and Anxiety F41.9 [facility] [id number] [place] [address] 41895- 7967 June, Other fatigue R53.83 ; Headache R51 and Left knee pain M25.562 [facility] [id number] [place] [address] 72191- 4527 June, Unspecified episodic mood disorder F39 ; Combinations of drug dependence excluding opioid type drug, unspecified abuse 304.80 ; Other disorder of impulse control 312.39 and Anxiety F41.9 [facility] [id number] [place] [address] 40968- 6072 June, Anxiety F41.9 [facility] [id number] [place] [address] 45702- 6995 June, Pain in left knee M25.562 [facility] [id number] [place] [address] 57407- 9902 June, Anxiety F41.9 and Combinations of drug dependence excluding opioid type drug, unspecified abuse 304.80 [facility] [id number] [place] [address] 21214- 8287 June, Unspecified episodic mood disorder 296.90 ; Combinations of drug dependence excluding opioid type drug, unspecified abuse 304.80 and Other disorder of impulse control 312.39 [facility] [id number] [place] [address] 76338- 9856 June, Anxiety F41.9 and Unspecified episodic mood disorder 296.90 [facility] [id number] [place] [address] 83637- 9619 May, Arthritis M19.90 [facility] [id number] [place] [address] 57932- 3427 May, Arthritis M19.90 [facility] [id number] [place] [address] 09909- 2389 May, Anxiety F41.9 ; Combinations of drug dependence excluding opioid type drug, unspecified abuse 304.80 and Other disorder of impulse control 312.39 [facility] [address], [place] [address]- 1186 18 May, 2015 Left knee pain M25.562 [facility] [address], [place] [address]- 9245 14 May, 2015 Arthritis M19.90 [facility] [id number] [place] [address] 09304- 7208 May, [facility] [id number] [place] [address] 48121- 5825 May, Anxiety F41.9 ; Unspecified episodic mood disorder 296.90 ; Combinations of drug dependence excluding opioid type drug, unspecified abuse 304.80 and Other disorder of impulse control 312.39 [facility] [address], [place] [address]- 3213 May, Left knee pain M25.562 [facility] [id number] [place] [address] 41915- 0082 11 May, 2015 Left knee pain M25.562 ; Combinations of drug dependence excluding opioid type drug, unspecified abuse 304.80 ; Other disorder of impulse control 312.39 ; Fibromyalgia M79.7 ; Hypertension I10 ; Unspecified episodic mood disorder 296.90 and Left hip pain M25.552 [facility] [address] [place] [address] 44855- 3843 May, Unspecified episodic mood disorder 296.90 ; Other disorder of impulse control 312.39 ; Combinations of drug dependence excluding opioid type drug, unspecified abuse 304.80 and Anxiety F41.9 [facility] [id number] [place] [address] 10109- 3968 May, Left knee pain M25.562 ; Combinations of drug dependence excluding opioid type drug, unspecified abuse 304.80 ; Other disorder of impulse control 312.39 ; Fibromyalgia M79.7 ; Hypertension I10 ; Unspecified episodic mood disorder 296.90 and Left hip pain M25.552 [facility] [address] [address]- 8979 04 May, 2015 Anxiety F41.9 ; Unspecified episodic mood disorder 296.90 ; Other disorder of impulse control 312.39 and Combinations of drug dependence excluding opioid type drug, unspecified abuse 304.80 [facility] [id number] [place] [id number] 30 Apr, 2015 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 and 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, implants and grafts, initial encounter T84.82XA [facility] [id number] [place] [address] 28 Apr, 2015 Anxiety F41.9 ; Unspecified episodic mood disorder 296.90 ; Combinations of drug dependence excluding opioid type drug, unspecified abuse 304.80 and Other disorder of impulse control 312.39 [place] [address] [place] [id number] [place] [place] [address] 01628- 6214 Apr, Arthritis M19.90 [facility] [id number] [place] [address] 52576- 7677 Apr, Anxiety F41.9 ; Unspecified episodic mood disorder 296.90 ; Combinations of drug dependence excluding opioid type drug, unspecified abuse 304.80 and Other disorder of impulse control 312.39 [facility] [id number] [place] [address] 64152- 4957 17 Apr, 2015 Arthritis M19.90 [facility] [id number] [place] [address] 57615- 8600 15 Apr, 2015 [facility] [id number] [place] [address] 96428- 0522 15 Apr, 2015 [place] [id number] [place] [address] 94467- 3930 14 Apr, 2015 Unspecified episodic mood disorder 296.90 ; Combinations of drug dependence excluding opioid type drug, unspecified abuse 304.80 ; Other disorder of impulse control 312.39 and Anxiety F41.9 [facility] [id number] [place] [address] 29231 -2591 Apr, Left knee pain M25.562 [place] [id number] [place] [address] 95127- 2095 Apr, [place] [id number] [place] [address] 59935- 6777 Mar, Unspecified episodic mood disorder 296.90 ; Anxiety F41.9 ; Other disorder of impulse control 312.39 and Combinations of drug dependence excluding opioid type drug, unspecified abuse 304.80 [place] [id number] [place] [address] 81500- 0686 Mar, Hyperpigmentation L81.9 [place] [id number] [place] [address] 94629- 8137 Mar, Arthritis M19.90 and Anxiety F41.[address] 88932- 5828 Mar, Unspecified episodic mood disorder F39 ; Combined drug dependence excluding opioids, 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 ; Other disorder of impulse control F63.89 and Anxiety F41.9 [place] [id number] [place] [address] 04413- 5346 12 Mar, 2015 Well woman exam Z01.419 ; Other fatigue R53.83 ; Hot flashes N95.1 ; Depression, unspecified depression type F32.9 and Body mass index (BMI) of 23.0-23.9 in adult Z68.23 [place] [id number] [place] [address] 52466- 6364 11 Mar, 2015 Unspecified episodic mood disorder 296.90 ; Other disorder of impulse control 312.39 and Anxiety F41.9 [place] [id number] [place] [address] 95993- 5641 11 Mar, 2015 Well woman exam Z01.419 [...] of breast Z12.39 and Limited mobility Z74.[address] 82870- 5538 Mar, [address] 06420- 3316 Mar, [address] 05425- 4197 Mar, [address] 90012- 7500 Mar, Other specified complication of internal orthopedic prosthetic devices, implants and grafts, initial encounter T84.89XA ; Fibromyalgia M79.7 ; Hypertension I10 ; Anemia D64.9 ; Insomnia G47.00 ; Anxiety F41.9 ; Arthritis M19.90 and Migraine G43.909 [id number] [place] [address] 23214- 0161 Mar, [address] 76954- 0614 Feb, [address] 04574- 7416 Feb, Arthritis M19.90 and Anxiety F41.[address] 48666- 7001 Feb, [id number] [place] [address] 39279- 7551 Feb, [id number] [place] [address] 1440 Feb, [facility] [id number] [place] [address]- 2615 Feb, [facility] [id number] [place] [address]- 6149 18 Feb, 2015 Anxiety F41.9 [facility] [id number] [place] [address] 18562- 0749 15 Feb, 2015 [facility] [address] [address]- 3179 Feb, [facility] [id number] [place] [address], [place] [address]- 8555 Feb, 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 and Fibromyalgia M79.7 [facility] [address] [address]- 8138 Feb, [facility] [address] [address]- 1803 Jan, [facility] [address] [address]- 3667 Jan, [facility] [id number] [place] [address]- 8397 Jan, [facility] [address] [address]- 9777 24 Jan, 2015 [facility] [address] [address]- 8275 16 Jan, 2015 [facility] [address] [address]- 9324 08 Jan, 2015 [facility] [address] [address]- 7080 07 Jan, 2015 [facility] [id number] [address]- 6119 07 Jan, 2015 [facility] [address] [address]- 2354 Dec, [facility] [id number] [place] [address] 17919- 7123 Dec, Left knee pain M25.562 [facility] [id number] [place] [address] 94262- 6653 Dec, Left knee pain M25.562 [facility] [id number] [place] [address] 92732- 8707 Dec, Fibromyalgia M79.7 ; Hypertension I10 and Arthritis M19.90 [facility] [id number] [place] [address] 78659- 4548 Dec, [facility] [id number] [place] [address] 13532- 4172 Dec, [facility] [id number] [place] [address] 02174- 0879 Dec, [facility] [id number] [place] [address] 39859- 9124 Dec, [facility] [id number] [place] [address] 31719- 7294 Nov, [facility] [id number] [place] [address] 61592- 2350 Nov, [facility] [id number] [place] [address] 95822- 6982 Nov, [facility] [id number] [place] [address] 69616- 5760 Nov, Hypertension I10 [facility] [id number] [place] [address] 81658- 8739 Oct, [facility] [address] [address]- 6256 Oct, [facility] [id number] [place] [address] 23103- 6142 Oct, [facility] [place] [facility] [address] [id number] [place] [address]- 4504 Oct, [facility] [place] [facility] [address] [id number] [place] [address]- 3575 Oct, [facility] [place] [facility] [address] [id number] [place] [address]- 2380 Sep, [facility] [place] [facility] [address] [id number] [place] [address]- 2212 Sep, [facility] [place] [facility] [address] [id number] [place] [address]- 4038 Sep, Hip pain associated with recalled total hip arthroplasty hardware 996.77 [facility] [place] [facility] [address] [id number] [place] [address]- 8288 Sep, [facility] [place] [facility] [address] [id number] [place] [address]- 1987 Sep, [facility] [place] [facility] [address] [id number] [place] [address]- 8556 Sep, [facility] [place] [facility] [address] [id number] [place] [address]- 2690 Aug, [facility] [place] [facility] [address] [facility] [id number] [place] [address]- 3472 Jul, [facility] [place] [facility] [address] [id number] [place] [address]- 1802 June, [facility] [place] [facility] [address] [id number] [place] [address]- 5671 June, [facility] [place] [facility] [address] [id number] [place] [address]- 4747 June, [facility] [place] [facility] [address] [id number] [place] [address]- 8256 June, [facility] [place] [facility] [address] [id number] [place] [address]- 9561 June, [facility] [place] [facility] [address] [id number] [place] [address]- 6506 June, [facility] [place] [facility] [address] [id number] [place] [address]- 6171 May, [facility] [place] [facility] [address] [id number] [place] [address]- 1016 May, [facility] [place] [facility] [address] [id number] [place] [address]- 0492 May, [facility] [place] [facility] [address] [id number] [place] [address]- 6544 Apr, [facility] [place] [facility] [address] [id number] [place] [address]- 5103 Apr, [facility] [place] [facility] [address] [id number] [place] [address]- 5772 Apr, [facility] [place] [facility] [address] [id number] [place] [address]- 1364 Apr, [facility] [place] [facility] [address] [id number] [place] [address]- 8881 Apr, [facility] [place] [facility] [address] [id number] [place] [address]- 0557 Apr, [facility] [place] [facility] [address] [id number] [place] [address]- 6679 Apr, [facility] [place] [facility] [address] [id number] [place] [address]- 6548 Apr, [facility] [place] [facility] [address] [id number] [place] [address]- 9792 Apr, [facility] [place] [facility] [address] [id number] [place] [address]- 9175 Apr, [facility] [place] [facility] [address] [id number] [place] [address]- 8166 Apr, [facility] [place] [facility] [address] [id number] [place] [address]- 5018 Mar, 2014 [facility] [place] [facility] [address] [id number] [place] [address]- 8256 Mar, 2014 [facility] [place] [facility] [address] [id number] [place] [address]- 6246 16 Mar, 2014 [facility] [place] [facility] [address] [id number] [place] [address]- 2336 16 Mar, 2014 [facility] [place] [facility] [address] [id number] [place] [address]- 9685 Mar, 2014 [facility] [place] [facility] [address] [id number] [place] [address]- 3070 Mar, [facility] [place] [facility] [address] [id number] [place] [address]- 2426 Feb, [facility] [place] [facility] [address] [id number] [place] [address]- 2265 Feb, [facility] [place] [facility] [address] [id number] [place] [address]- 9149 Feb, [facility] [place] [facility] [address] [id number] [place] [address]- 0456 Feb, [facility] [place] [facility] [address] [facility] [id number] [place] [address]- 1367 Jan, [facility] [place] [facility] [address] [id number] [place] [address]- 9857 Jan, [facility] [place] [facility] [address] [id number] [place] [address]- 9122 Jan, [facility] [place] [facility] [address] [id number] [place] [address]- 3031 Jan, [facility] [place] [facility] [address] [id number] [place] [address]- 4199 Dec, [facility] [place] [facility] [address] [id number] [place] 9819 Dec, [facility] [place] [facility] [address] [id number] [place] [address]- 1860 Dec, [facility] [place] [facility] [address] [id number] [place] [address]- 3356 Dec, [facility] [place] [facility] [address] [id number] [place] [address]- 0061 Dec, [facility] [place] [facility] [address] [id number] [place] [address]- 1948 Dec, [facility] [place] [facility] [address] [id number] [place] [address]- 1513 Dec, [facility] [place] [facility] [address] [id number] [place] [address]- 3408 Dec, [facility] [place] [facility] [address] [id number] [place] [address]- 7281 Dec, [facility] [place] [facility] [address] [id number] [place] [address]- 5001 Dec, [facility] [place] [facility] [address] [id number] [place] [address]- 9808 Dec, [facility] [place] [facility] [address] [id number] [place] [address]- 7316 Nov, [facility] [place] [facility] [address] [id number] [place] [address]- 2335 Nov, [facility] [place] [facility] [address] [id number] [place] [address]- 8039 28 Nov, 2013 [facility] [place] [facility] [address] [id number] [place] [address]- 2043 Nov, [facility] [place] [facility] [address] [id number] [place] [address]- 3882 17 Nov, 2013 [facility] [place] [facility] [address] [id number] [place] [address]- 1489 15 Nov, 2013 [facility] [place] [facility] [address] [id number] [place] [address]- 9208 15 Nov, 2013 [facility] [place] [facility] [address] [id number] [place] [address]- 9936 15 Nov, 2013 [facility] [place] [facility] [address] [id number] [place] [address]- 2688 15 Nov, 2013 [facility] [place] [facility] [address] [id number] [place] [address]- 4326 14 Nov, 2013 [facility] [place] [facility] [address] [id number] [place] [address]- 2164 14 Nov, 2013 [facility] [place] [facility] [address] [id number] [place] [address]- 5999 14 Nov, 2013 [facility] [place] [facility] [address] [id number] [place] [address]- 4901 14 Nov, 2013 [facility] [place] [facility] [address] [id number] [place] [address]- 6100 13 Nov, 2013 [facility] [place] [facility] [address] [id number] [address]- 3358 13 Nov, 2013 [facility] [place] [facility] [address] [id number] [place] [address]- 7851 11 Nov, 2013 [facility] [place] [facility] [address] [id number], [place] [address]- 9226 11 Nov, 2013 [facility] [place] [facility] [address] [id number], [place] [address]- 5835 07 Nov, 2013 [facility] [place] [facility] [address] [id number], [place] [address]- 1137 07 Nov, 2013 [facility] [place] [facility] [address] [id number] [place] [address]- 5437 07 Nov, 2013 [facility] [place] [facility] [address] [id number], [place] [address]- 6251 07 Nov, 2013 [facility] [place] [facility] [address] [id number], [place] [address]- 8295 30 Oct, 2013 [facility] [place] [facility] [address] [id number] [place] [address]- 7101 30 Oct, 2013 [facility] [place] [facility] [address] [id number] [place] [address] 2546 26 Oct, 2013 [facility] [place] [facility] [address] [id number] [place] [address] 2546 26 Oct, 2013 [facility] [place] [facility] [address] [id number] [place] [address]- 7851 22 Oct, 2013 [facility] [place] [facility] [address] [id number] [place] [address] 2549 22 Oct, 2013 [facility] [place] [facility] [address] [id number] [place] [address]- 5087 18 Oct, 2013 [facility] [place] [facility] [address] [id number] [place] [address]- 0299 18 Oct, 2013 [facility] [place] [facility] [address] [id number] [place] [address]- 6316 18 Oct, 2013 [facility] [place] [facility] [address] [id number] [place] [address]- 9704 18 Oct, 2013 [facility] [place] [facility] [address] [id number] [place] [address]- 3910 12 Oct, 2013 [facility] [place] [facility] [address] [id number] [place] [address]- 2548 12 Oct, 2013 [facility] [place] [facility] [address] [id number] [place] [address] 2548 Oct, 2013 [facility] [place] [facility] [address] [id number] [place] [address]- 2547 Oct, 2013 [facility] [place] [facility] [address] [id number] [place] [address]- 9513 Sep, [facility] [place] [facility] [address] [id number] [place] [address]- 8908 Sep, [facility] [place] [facility] [address] [id number] [place] [address]- 5553 Sep, [facility] [place] [facility] [address] [id number] [place] [address]- 9126 Sep, [facility] [place] [facility] [address] [id number] [place] [address]- 4987 Sep, [facility] [place] [facility] [address] [id number] [place] [address]- 2774 Sep, [facility] [place] [facility] [address] [id number] [place] [address]- 8516 Sep, [facility] [place] [facility] [address] [id number] [place] [address]- 5460 Sep, [facility] [place] [facility] [address] [id number] [place] [address]- 0324 Sep, [facility] [place] [facility] [address] [id number] [place] [address]- 4663 Sep, [facility] [place] [facility] [address] [id number] [place] [address]- 3006 Sep, [facility] [place] [facility] [address] [id number] [place] [address]- 2388 Sep, [facility] [place] [facility] [address] [id number] [place] [address]- 5275 Sep, [facility] [place] [facility] [address] [id number] [place] [address]- 9056 Sep, [facility] [place] [facility] [address] [id number] [place] [address]- 0335 Sep, [facility] [place] [facility] [address] [id number] [place] [address]- 7286 Sep, [facility] [place] [facility] [address] [id number] [place] [address]- 4241 Sep, [facility] [place] [facility] [address] [id number] [place] [address]- 1280 Sep, [facility] [place] [facility] [address] [id number] [place] [address]- 3933 Aug, [facility] [place] [facility] [address] [id number] [place] [address]- 6362 Aug, [facility] [place] [facility] [address] [id number] [place] [address]- 8601 Aug, [facility] [place] [facility] [address] [id number] [place] [address]- 6020 Aug, [facility] [place] [facility] [address] [id number] [place] [address]- 8459 Aug, [facility] [place] [facility] [address] [id number] [place] [address]- 1365 Aug, [facility] [place] [facility] [address] [id number] [place] [address]- 0485 Jul, [facility] [place] [facility] [address] [id number] [place] [address]- 2560 Jul, [facility] [place] [facility] [address] [id number] [place] [address]- 3203 Jul, [facility] [place] [facility] [address] [id number] [place] [address]- 1639 Jul, [facility] [place] [facility] [address] [id number] [place] [address]- 0370 June, [facility] [place] [facility] [address] [id number] [place] [address]- 8061 June, [facility] [place] [facility] [address] [id number] [place] [address]- 6125 June, [facility] [place] [facility] [address] [id number] [place] [address]- 3159 June, [facility] [place] [facility] [address] [id number] [place] [address]- 1489 June, [facility] [place] [facility] [address] [id number] [place] [address]- 3396 June, [facility] [place] [facility] [address] [id number] [place] [address]- 9416 June, [facility] [place] [facility] [address] [id number] [place] [address]- 0579 May, [facility] [place] [facility] [address] [id number] [place] [address]- 1226 May, [facility] [place] [facility] [address] [id number] [place] [address]- 8329 May, [facility] [place] [facility] [address] [id number] [place] [address]- 2486 May, [facility] [place] [facility] [address] [id number] [place] [address]- 7481 May, [facility] [place] [facility] [address] [id number] [place] [address]- 1816 May, [facility] [place] [facility] [address] [id number] [place] [address]- 7785 31 Apr, 2013 [facility] [place] [facility] [address] [id number] [place] [address]- 3928 31 Apr, 2013 [facility] [place] [facility] [address] [id number] [place] [address] 28 Apr, 2013 [facility] [place] [facility] [address] [id number] [place] [address] 28 Apr, 2013 [facility] [place] [facility] [address] [id number] [place] [address] 14 Apr, 2013 [facility] [place] [facility] [address] [id number] [place] [address] 14 Apr, 2013 [facility] [place] [facility] [address] [id number] [place] [address] 12 Apr, 2013 [facility] [place] [facility] [address] [id number] [place] [address] 12 Apr, 2013 [facility] [place] [facility] [address] [id number] [place] [address] Apr, [facility] [place] [facility] [address] [id number] [place] [address] Apr, [facility] [place] [facility] [address] [id number] [place] [address] Apr, [facility] [place] [facility] [address] [id number] [place] [address] 12[address] Apr, [facility] [place] [facility] [address] [id number] [place] [address] Apr, [facility] [place] [facility] [address] [id number] [place] [address] Apr, [facility] [place] [facility] [address] [id number] [place] [address] Mar, [facility] [place] [facility] [address] [id number] [place] [address]- [address] Mar, [facility] [place] [facility] [address] [id number] [place] [address] Mar, [facility] [place] [facility] [address] [id number] [place] [address] Feb, [facility] [place] [facility] [address] [id number] [place] [address] Feb, [facility] [place] [facility] [address] [id number] [place] [address] Feb, [facility] [place] [facility] [address] [id number] [place] [address] 85[address] Feb, [facility] [place] [facility] [address] [id number] [place] [address] Feb, [facility] [place] [facility] [address] [id number] [place] [address] 89[address] Feb, [facility] [place] [facility] [address] [id number] [place] [address] Feb, [facility] [place] [facility] [address] [id number] [place] [address]49 Feb, [facility] [address] [id number] [place] [address] Feb, [facility] [address] [id number] [place] [address] 16[address] Feb, [facility] [address] [id number] [place] [address] Jan, [facility] [address] [id number] [place] [address] 30 Jan, 2013 [facility] [address] [id number] [place] [address] Jan, [facility] [address] [id number] [place] [address] Jan, [facility] [address] [id number] [place] [address] Jan, [facility] [address] [id number] [place] [address] Jan, [facility] [address] [id number] [place] [address] 86[address] Jan, [facility] [address] [id number] [place] [address] Jan, [facility] [address] [id number] [place] [address]16 Jan, [facility] [address] [id number] [place] [address] 19 Jan, 2013 [facility] [place] [facility] [address] [id number] [place] [address] 17 Jan, 2013 [facility] [place] [facility] [address] [id number] [place] [address] 17 Jan, 2013 [facility] [address] [id number] [place] [address] Jan, [facility] [place] [facility] [address] [id number] [place] [address]- [address] Jan, [facility] [address] [id number] [place] [address]- [address] Jan, [facility] [address] [id number] [place] [address] Jan, [facility] [address] [id number] [place] [address]- [address] Jan, [facility] [address] [id number] [place] [address]- 3936 Jan, [facility] [address] [id number] [place] [address] Jan, [facility] [address] [id number] [place] [address] Jan, [facility] [address] [id number] [place] [address]- 3746 Jan, [facility] [address] [id number] [place] [address]- 96[address] Dec, [facility] [address] [id number] [place] [address]- [address] Dec, [facility] [address] [id number] [place] [address] Dec, [facility] [place] [facility] [address] [id number], [place] [address] Dec, [facility] [place] [facility] [address] [id number] [place] [address] 4464 Dec, [facility] [place] [facility] [address] [id number] [place] [address] 3900 Dec, [facility] [place] [facility] [address] [id number] [place] [address] Dec, [facility] [place] [facility] [address] [id number], [place] [address] Dec, [facility] [place] [facility] [address] [id number] [place] [address] Dec, [facility] [place] [facility] [address] [id number] [place] [address] Dec, [facility] [place] [facility] [address] [id number] [place] [address] 6[address] Nov, [facility] [place] [facility] [address] [id number] [place] [address]- 2672 Nov, [facility] [place] [facility] [address] [id number] [place] [address]- 1447 Nov, [facility] [place] [facility] [address] [id number] [place] [address] 8538 Nov, [facility] [place] [facility] [address] [id number], [place] [address] Nov, [facility] [place] [facility] [address] [id number] [place] [address] 4339 Nov, [facility] [place] [facility] [address] [id number] [place] [address]- 5395 Nov, [facility] [place] [facility] [address] [id number] [place] [address] 7304 Nov, [facility] [place] [facility] [address] [id number], [place] [address] Nov, [facility] [place] [facility] [address] [id number], [place] [address] Nov, [facility] [place] [facility] [address] [id number] [place] [address]- 3466 Oct, [facility] [place] [facility] [address] [id number] [place] [address]- 7782 Oct, [facility] [place] [facility] [address] [id number] [place] [address]- 0451 Oct, [facility] [place] [facility] [address] [id number] [place] [address]- 2546 Oct, [facility] [address] [id number] [place] [address]- 4736 Oct, [facility] [address] [id number] [place] [address] 2546 Sep, [facility] [address] [id number] [place] [address]- 2546 Sep, [facility] [address] [id number] [place] [address]- 9799 Aug, [facility] [address] [id number] [place] [address]- 6220 Aug, [facility] [address] [id number] [place] [address]- 5087 Aug, [facility] [address] [id number] [place] [address]- 8111 Aug, [facility] [address] [id number] [place] [address]- 0968 Aug, [facility] [address] [id number] [place] [address]- 0284 Aug, [facility] [address] [id number] [place] [address]- 0246 Aug, [facility] [address] [id number] [place] [address]- 0078 Jul, [facility] [address] [id number] [place] [address]- 4480 Jul, [facility] [place] [facility] [address] [id number] [place] [address]- 9759 June, [facility] [address] [id number] [place] [address]- 2546 June, [facility] [address] [id number] [place] [address]- 5707 June, [facility] [address] [id number] [place] [address]- 4315 June, [facility] [address] [id number] [place] [address]- 8494 June, [facility] [address] [id number] [place] [address] June, [facility] [address] [id number] [place] [address]- 1697 June, [facility] [address] [id number] [place] [address]- 1596 June, [facility] [address] [id number] [place] [address]- 9215 June, [facility] [address] [id number] [place] [address]- 0486 June, [facility] [address] [id number] [place] [address]- 6752 June, [facility] [address] [id number] [place] [address]- 4424 May, [facility] [address] [id number] [place] [address]- 0293 May, [facility] [address] [id number] [place] [address]- 0427 May, [facility] [place] [facility] [address] [id number] [place] [address]- 5220 May, [facility] [place] [facility] [address] [id number] [place] [address]- 5747 Apr, [facility] [place] [facility] [address] [id number] [place] [address]- 1938 Apr, [facility] [place] [facility] [address] [id number] [place] [address]- 3520 Apr, [facility] [place] [facility] [address] [id number] [place] [address]- 8314 Mar, [facility] [address] [id number] [place] [address]- 4046 Mar, [facility] [address] [id number] [place] [address]- 1866 Feb, [facility] [address] [id number] [place] [address]- 6150 Feb, [facility] [address] [id number] [place] [address]- 9659 Feb, [facility] [address] [id number] [place] [address]- 4392 Feb, [facility] [address] [id number] [place] [address]- 7622 16 Feb, 2012 [facility] [address] [id number] [place] [address]- 4689 Feb, [facility] [address] [id number] [place] [address]- 0400 Feb, [facility] [address] [id number] [place] [address]- 6258 31 Jan, 2012 [facility] [address] [id number] [place] [address]- 2624 Jan, [facility] [address] [id number] [place] [address]- 5926 Jan, [facility] [address] [id number] [place] [address]- 3274 Jan, [facility] [address] [id number] [place] [address]- 2812 Jan, [facility] [address] [id number] [place] [address]- 5882 Jan, [facility] [address] [id number] [place] [address]- 8910 Jan, [facility] [place] [facility] [address] [id number] [place] [address]- 4018 Jan, [facility] [place] [facility] [address] [id number] [place] [address]- 3686 Jan, [facility] [place] [facility] [address] [id number] [place] [address]- 0392 Jan, [facility] [place] [facility] [address] [id number] [place] [address]- 0440 Jan, [facility] [place] [facility] [address] [id number] [place] [address]- 0864 Dec, [facility] [place] [facility] [address] [id number] [place] [address]- 2792 Dec, [facility] [place] [facility] [address] [id number] [place] [address]- 2032 Dec, [facility] [place] [facility] [address] [id number] [place] [address]- 7789 Dec, [facility] [place] [facility] [address] [id number] [place] [address]- 3505 Nov, [facility] [place] [facility] [address] [id number] [place] [address]- 2673 Nov, [facility] [place] [facility] [address] [id number] [place] [address]- 1017 Nov, [facility] [place] [facility] [address] [id number] [place] [address]- 1455 27 Oct, 2011 [facility] [place] [facility] [address] [id number] [place] [address]- 0174 24 Oct, 2011 [facility] [place] [facility] [address] [id number] [place] [address]- 3816 21 Oct, 2011 [facility] [place] [facility] [address] [id number] [place] [address]- 8961 10 Oct, 2011 [facility] [place] [facility] [address] [id number] [place] [address]- 7846 07 Oct, 2011 [facility] [place] [facility] [address] [id number] [place] [address]- 5332 Oct, [facility] [place] [facility] [address] [id number] [place] [address]- 9356 04 Oct, 2011 [facility] [place] [facility] [address] [id number] [place] [address]- 9900 Sep, [facility] [place] [facility] [address] [id number] [place] [address]- 5846 Sep, [facility] [place] [facility] [address] [id number] [place] [address]- 3685 Sep, [facility] [place] [facility] [address] [id number] [place] [address]- 7720 Sep, [facility] [place] [facility] [address] [id number] [place] [address]- 0402 Sep, [facility] [place] [facility] [address] [id number] [place] [address]- 8351 Aug, [facility] [place] [facility] [address] [id number] [place] [address]- 2312 Aug, [facility] [place] [facility] [address] [id number] [place] [address]- 2509 Aug, [facility] [place] [facility] [address] [id number] [place] [address]- 8143 16 Aug, 2011 [facility] [place] [facility] [address] [id number] [place] [address]- 9030 Aug, [facility] [place] [facility] [address] [id number] [place] [address]- 1963 Aug, [facility] [place] [facility] [address] [id number] [place] [address]- 1476 Aug, [facility] [place] [facility] [address] [id number] [place] [address]- 2442 Jul, [facility] [place] [facility] [address] [id number] [place] [address]- 2963 26 Jul, 2011 [facility] [address] [id number] [place] [address]- 0746 Jul, [facility] [place] [facility] [address] [id number] [place] [address]- 2797 Jul, [facility] [address] [id number] [place] [address]- 4873 Jul, [facility] [place] [facility] [address] [id number] [place] [address]- 2487 Jul, [facility] [address] [id number] [place] [address]- 1369 07 Jul, 2011 [facility] [address] [id number] [place] [address]- 1100 Jul, [facility] [address] [id number] [place] [address]- 0432 05 Jul, 2011 [facility] [address] [id number] [place] [address]- 9124 June, [facility] [address] [id number] [place] [address]- 0794 June, [facility] [address] [id number] [place] [address]- 5060 June, [facility] [place] [facility] [address] [id number] [place] [address]- 9076 June, [facility] [address] [id number] [place] [address]- 5373 June, [facility] [place] [facility] [address] [id number] [place] [address]- 5038 June, [facility] [place] [facility] [address] [id number] [place] [address]- 4517 June, [facility] [address] [id number] [place] [address]- 7575 June, [facility] [address] [id number] [place] [address]- 8440 May, [facility] [place] [facility] [address] [id number] [place] [address]- 7836 May, [facility] [place] [facility] [address] [id number] [place] [address]- 4496 May, [facility] [place] [facility] [address] [id number] [place] [address]- 4166 May, [facility] [place] [facility] [address] [id number] [place] [address]- 5294 May, [facility] [place] [facility] [address] [id number] [place] [address]- 1316 May, [facility] [place] [facility] [address] [id number] [place] [address]- 6496 May, [facility] [place] [facility] [address] [id number] [place] [address]- 1459 Apr, [facility] [place] [facility] [address] [id number] [place] [address]- 4233 Apr, [facility] [place] [facility] [address] [id number] [place] [address]- 2484 Apr, [facility] [place] [facility] [address] [id number] [place] [address]- 0796 Apr, [facility] [place] [facility] [address] [id number], [place] [address]- 6036 Apr, [facility] [place] [facility] [address] [id number] [place] [address]- 8236 Apr, [facility] [place] [facility] [address] [id number] [place] [address]- 5296 Apr, [facility] [place] [facility] [address] [id number], [place] [address]- 7446 Mar, [facility] [place] [facility] [address] [id number], [place] [address]- 9981 20 Mar, 2011 [facility] [address] [id number] [place] [address]- 9166 14 Mar, 2011 [facility] [address] [id number] [place] [address]- 1916 13 Mar, 2011 [facility] [address] [id number] [place] [address]- 5806 Mar, [facility] [address] [id number] [place] [address] 2546 Mar, [facility] [address] [id number] [place] [address]- 0876 Mar, [facility] [address] [id number] [place] [address]- 7009 Feb, [facility] [address] [id number] [place] [address]- 4886 Feb, [facility] [address] [id number] [place] [address]- 6014 Feb, [facility] [address] [id number] [place] [address]- 8654 Feb, [facility] [address] [id number] [place] [address]- 1458 Feb, [facility] [address] [id number] [place] [address]- 6886 Feb, [facility] [address] [id number] [place] [address]- 7760 Feb, [facility] [place] [facility] [address] [id number] [place] [address]- 9957 Feb, [facility] [place] [facility] [address] [id number] [place] [address]- 3576 Feb, [facility] [address] [id number] [place] [address]- 2457 Feb, [facility] [place] [facility] [address] [id number] [place] [address]- 9107 Jan, [facility] [place] [facility] [address] [id number] [place] [address]- 2896 Jan, [facility] [place] [facility] [address] [id number] [place] [address]- 8251 Jan, [facility] [place] [facility] [address] [id number] [place] [address]- 0556 Jan, [facility] [place] [facility] [address] [id number] [place] [address]13 Jan, [facility] [place] [facility] [address] [id number] [place] [address]- 5528 Jan, [facility] [place] [facility] [address] [id number] [place] [address]- 3443 Jan, [facility] [place] [facility] [address] [id number] [place] [address]- 6957 Jan, [facility] [place] [facility] [address] [id number] [place] [address]- 5261 Jan, [facility] [place] [facility] [address] [id number] [place]041 Jan, [facility] [place] [facility] [address] [id number] [place] [address]- 7177 Jan, [facility] [place] [facility] [address] [id number] [place] [address]- 4721 Dec, [facility] [place] [facility] [address] [id number] [place] [address]- 3572 Dec, [facility] [place] [facility] [address] [id number] [place] [address]- 9523 Dec, [facility] [place] [facility] [address] [id number] [place] [address]- 0994 16 Dec, 2010 [facility] [place] [facility] [address] [id number], [place] [address]- 4332 14 Dec, 2010 [facility] [place] [facility] [address] [id number] [place] [address]- 0583 Dec, [facility] [place] [facility] [address] [id number] [place] [address]361 08 Dec, 2010 [facility] [place] [facility] [address] [id number] [place] [address]- 2969 Dec, [facility] [place] [facility] [address] [id number] [place] [address]- 8896 Dec, [facility] [place] [facility] [address] [id number] [place] [address]- 5516 Nov, [facility] [place] [facility] [address] [id number] [place] [address]- 6127 Nov, [facility] [place] [facility] [address] [id number] [place] [address]- 8877 Nov, [facility] [place] [facility] [address] [id number] [place] [address]- 0112 24 Nov, 2010 [facility] [place] [facility] [address] [id number] [place] [address]- 6859 24 Nov, 2010 [facility] [place] [facility] [address] [id number] [place] [address]- 9312 Nov, [facility] [place] [facility] [address] [id number], [place] [address]- 8951 Aug, [facility] [place] [facility] [address] [id number] [place] [address]- 8183 14 Feb, 2010 [facility] [place] [facility] [address] [id number] [place] [address]- 1661 14 Jan, 2010 [facility] [place] [facility] [address] [id number] [place] 3387 06 Jan, 2010 [facility] [place] [facility] [address] [id number] [place] 4140 Jan, [facility] [place] [facility] [id number], [place] [address]- 4826 Jan, [facility] [id number], [place] [address]- 2894 Jan, [facility] [id number], [place] [address]- 3963 Dec, [facility] [id number], [place] [address]- 5354 Dec, [facility] [id number], [place] [address]- 0840 Dec, [facility] [id number] [place] [address]- 9886 Dec, [facility] [id number], [place] [address]- 8131 Nov, [facility] [id number], [place] [address]- 1707 Nov, [facility] [address] [id number], [place] [address]- 5773 Nov, IMMUNIZATIONS No Known Immunizations SOCIAL HISTORY Never Assessed REASON FOR VISIT Controlled Med Refill 09/18 PLAN OF CARE VITAL SIGNS MEDICATIONS Medication Instructions Dosage Frequency Start Date End Date Duration Status Fentanyl 50 MCG/HR Transdermal 48 hrs 1 patch to skin Sep, 30 days Active RESULTS No Results PROCEDURES [...]
--- OUTSIDE RECORDS SUMMARY | 2018-01-13 21:57 | XMS REPORT ---
Author Author JUAN CARLOS SHEFFIELD Organization [facility] Address [address] 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 Active 304574427 Problem Hypertension I10 Active 82325057 Problem Arthritis M19.90 Active 2339018 Problem 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 Active 43501320 Problem Anxiety F41.9 Active 51789108 Problem Unspecified episodic mood disorder F39 Active 60644705 Problem Left hip pain M25.552 Active 63263414 ALLERGIES No Information ENCOUNTERS Encounter Location Date Diagnosis [facility] [address] [facility] [id number] [address] Nov, [facility] [address] [facility] [id number], [place] [address] Oct, [facility] [address] [facility] [id number], [place] [address] Oct, Arthritis M19.90 and Unspecified episodic mood disorder F39 [facility] [address], [place] [address] Sep, Chronic hepatitis C without hepatic coma B18.2 [facility] [id number] [place] [address] 10704- 1303 Sep, Gastroesophageal reflux disease, esophagitis presence not specified K21.9 and Other chronic pain G89.29 [facility] [id number] [place] [address] 25948- 3464 Sep, [facility] [id number] [place] [address] 33487- 4028 Sep, [facility] [id number] [place] [address] 79340- 9094 Sep, Chronic hepatitis C without hepatic coma B18.2 [facility] [id number] [place] [address] 84490- 2653 Sep, 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 [facility] [id number] [place] [address] 58397- 6355 Sep, Arthritis M19.90 [facility] [id number] [place] [address] 93452- 6983 Sep, [facility] [id number] [place] [address] 49004- 1175 Sep, Unspecified episodic mood disorder F39 [facility] [id number] [place] [address] 36671- 2454 Aug, [facility] [id number] [place] [address] [id number] Aug, [facility] [id number] [place] [address] 44973- 6816 Aug, Arthritis M19.90 [facility] [address] [place] [address] 98317- 2727 Aug, [facility] [address], [place] [address] 2609 Aug, Obesity (BMI 30.0-34.9) E66.9 ; Unspecified episodic mood disorder F39 and Hypertension I10 [facility] [id number], [place] [address] Aug, Unspecified episodic mood disorder F39 [facility] [id number] [place] [address] 03592- 5442 Aug, [facility] [id number] [place] [address] 56824- 1232 Jul, Unspecified episodic mood disorder F39 [facility] [id number] [place] [address] 27916- 7701 Jul, [facility] [id number] [place] [address] 94152- 0256 Jul, Arthritis M19.90 [facility] [id number] [place] [address] 38190- 3742 Jul, Left hip pain M25.552 ; Hypertension I10 ; Other obesity due to excess calories E66.09 and Body mass index (BMI) of 34.0-34.9 in adult Z68.34 [facility] [address] [place] [address] 13170- 6533 Jul, Unspecified episodic mood disorder F39 [facility] [id number] [place] [address] 73239- 4454 June, Gastroesophageal reflux disease, esophagitis presence not specified K21.9 [facility] [id number] [place] [address] 48647- 9380 June, [facility] [id number] [place] [address] 64572- 8770 June, [facility] [id number] [place] [address] 27646- 1505 June, Arthritis M19.90 [facility] [address], [place] [address]- 1707 June, [facility] [id number] [place] [address] 94337- 6073 June, [facility] [id number] [place] [address] 14186- 9771 June, Unspecified episodic mood disorder F39 [facility] [id number] [place] [address] 01551- 2720 May, Unspecified episodic mood disorder F39 [facility] [id number] [place] [address] 80443- 4813 May, [facility] [id number] [place] [address] 88533- 5470 May, Arthritis M19.90 [facility] [id number] [place] [address] 19151 -1580 May, Dysuria R30.0 ; Abscess L02.91 and Acute cystitis without hematuria N30.00 [facility] [address] [place] [address] 64694- 6953 May, 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 ; Unspecified episodic mood disorder F39 ; Combined drug dependence excluding opioids, 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 ; Anxiety F41.9 and Other psychoactive substance dependence, 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 [facility] [address], [place] [address]- 0[address] May, [facility] [id number] [place] [address] 61249- 5150 May, Other disorder of impulse control 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 ; Unspecified episodic mood disorder F39 ; Combined drug dependence excluding opioids, 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 ; Other psychoactive substance dependence, 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 and Anxiety F41.9 [facility] [address], [place] [address] 3369 May, Other chronic pain G89.29 ; Left hip pain M25.552 ; Hypertension I10 ; 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, 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 and Unspecified episodic mood disorder F39 [facility] [id number] [place] [address] 77759- 4405 Apr, [facility] [id number] [place] [address] 69947 -8753 Apr, Neck pain M54.2 ; Left hip pain M25.552 and Fall, initial encounter W19.XXXA [facility] [id number] [place] [address] 38023- 7585 Apr, Unspecified episodic mood disorder F39 ; Combined drug dependence excluding opioids, 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 ; Anxiety F41.9 ; Other psychoactive substance dependence, 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 and Other disorder of impulse control F63.89 [facility] [id number] [place] [address] 00924- 5641 Apr, [facility] [id number] [place] [address] 41508- 8580 Apr, Arthritis M19.90 and Unspecified episodic mood disorder F39 [facility] [id number] [place] [address] 99515- 3540 Apr, Unspecified episodic mood disorder F39 [facility] [address], [place] [address]- 1081 Apr, [facility] [id number] [place] [address] 33859- 1514 08 Apr, 2017 [facility] [id number] [place] [address] 23536- 2335 Apr, Unspecified episodic mood disorder F39 ; Combined drug dependence excluding opioids, 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 ; Anxiety F41.9 ; Other psychoactive substance dependence, 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 and Other disorder of impulse control F63.89 [facility] [id number] [place] [address] 94869- 4658 Mar, Unspecified episodic mood disorder F39 [facility] [address], [place] [address]- 2115 Mar, Gastroesophageal reflux disease, esophagitis presence not specified K21.9 [facility] [address], [place] [address]- 8496 Mar, Arthritis M19.90 and Unspecified episodic mood disorder F39 [facility] [id number] [place] [address] 23821 2546 Feb, [facility] [id number] [place] [address] 13370 2546 Feb, [facility] [id number] [place] [address] 09673- 7716 Feb, [facility] [id number] [place] [address] 60756- 9106 Feb, Arthritis M19.90 [facility] [id number] [place] [address] 28483 2541 Feb, Non-pressure chronic ulcer of right calf, 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 ; Unspecified episodic mood disorder F39 and Left hip pain M25.552 [facility] [id number] [place] [address] 93818- 5466 Feb, [facility] [id number] [place] [address] 65111- 2776 Feb, [facility] [id number] [place] [address] 25482 2546 Jan, Arthritis M19.90 [facility] [address] [place] [address] 37016 2546 Jan, Left hip pain M25.552 and Non-pressure chronic ulcer of right calf, 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 [facility] [address], [place] [address]- 7356 Jan, Chronic hepatitis C without hepatic coma B18.2 [facility] [id number] [place] [address] 87595- 4954 Jan, Encounter for immunization Z23 ; Venous insufficiency ( chronic) (peripheral) I87.2 ; Non-pressure chronic ulcer of unspecified calf limited to breakdown of skin L97.201 and Gastroesophageal reflux disease, esophagitis presence not specified K21.9 [facility] [id number] [place] [address] 03875- 8466 Jan, [facility] [id number] [place] [address] 87880- 5183 Jan, Chronic hepatitis C without hepatic coma B18.2 and Encounter for immunization Z23 [facility] [id number] [place] [address] 38982- 8866 Jan, Arthritis M19.90 [facility] [id number] [place] [address] 17078- 7476 Jan, [facility] [id number] [place] [address] 68239- 3434 Dec, [facility] [id number] [place] [address] 29217- 2913 Dec, Unspecified episodic mood disorder F39 [facility] [id number] [place] [address] 97047- 2546 Dec, Arthritis M19.90 [facility] [id number] [place] [address] 49320 2546 Dec, Arthritis M19.90 [facility] [id number] [place] [address] 96143- 2543 Nov, [facility] [id number] [place] [address] 88523- 5276 Nov, [facility] [id number] [place] [address] 11492- 2546 Nov, Other psychoactive substance dependence, 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 ; 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, 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 and Chronic hepatitis C without hepatic coma B18.2 [facility] [address], [place] [address]- 5041 Nov, Arthritis M19.90 [facility] [address] [place] [address] 16038 -4440 Oct, Partial thickness burn of abdomen, initial encounter T21.22XA [facility] [id number] [place] [address] 35738- 1694 Oct, [facility] [id number] [place] [address] 74523- 4122 Sep, Arthritis M19.90 [facility] [id number] [place] [address] 30236- 0309 Sep, [facility] [id number] [place] [address] 81237- 7868 Sep, [facility] [id number] [place] [address] 05904- 1936 Sep, Unspecified episodic mood disorder F39 ; Chronic hepatitis C without hepatic coma B18.2 and Left hip pain M25.552 [facility] [id number] [place] [address] 38787- 9172 Sep, Arthritis M19.90 and Left hip pain M25.552 [facility] [address] [place] [address] 67266- 0168 Aug, [facility] [id number] [place] [address] 87599- 0324 Aug, [facility] [id number] [place] [address] 76744- 9665 Aug, Chronic hepatitis C without hepatic coma B18.2 [facility] [address] [place] [address] 52302- 0256 Aug, [facility] [id number] [place] [address] 76450- 9832 Aug, Chronic hepatitis C without hepatic coma B18.2 [facility] [id number] [place] [address] 01333- 0735 Aug, 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, 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 [facility] [id number] [place] [address] 55057- 8172 Aug, [facility] [id number] [place] [address] 12609- 3301 Aug, Chronic hepatitis C without hepatic coma B18.2 and Hypertension I10 [facility] [id number] [place] [address] 40878- 6212 Jul, [facility] [id number] [place] [address] 44510- 7761 June, [facility] [id number] [place] [address] 09978- 6411 Apr, Fibromyalgia M79.7 ; Left hip pain M25.552 and Decubitus ulcer of sacral region, stage 1 L89.151 [facility] [id number] [place] [address] 21624- 0894 Apr, [facility] [id number] [place] [address] 59456- 0851 Apr, [facility] [id number] [place] [address] 73732- 7374 Feb, [facility] [id number] [place] [address] 78708- 0255 Dec, Anxiety F41.9 ; Combined drug dependence excluding opioids, 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 and Unspecified episodic mood disorder F39 [facility] [id number] [place] [address] 75128- 9499 Dec, [facility] [id number] [place] [address] 53854- 1193 Nov, [facility] [id number] [place] [address] 36559- 6945 Nov, [facility] [address] [place] [address] 00734- 5606 Nov, Other disorder of impulse control F63.89 and Anxiety F41.9 [facility] [id number] [place] [address] 06362- 0384 21 Oct, 2015 [facility] [id number] [place] [address] 12177 -4834 14 Oct, 2015 Open wound of left thigh, initial encounter S71.102A [facility] [id number] [place] [address] 88088- 6809 Oct, [facility] [id number] [place] [address] 77960- 3134 Sep, Unspecified episodic mood disorder F39 ; Other disorder of impulse control 312.39 ; Combined drug dependence excluding opioids, 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 and Anxiety F41.9 [facility] [address] [place] [address] 22630- 7877 Sep, Other disorder of impulse control 312.39 ; Combined drug dependence excluding opioids, 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 ; Anxiety F41.9 and Unspecified episodic mood disorder F39 [facility] [address] [place] [address] 35946- 7991 Sep, Other chronic pain G89.29 [facility] [id number] [place] [address] 40714- 4195 Sep, [facility] [address] [place] [address] 81978- 6814 Sep, [facility] [id number] [place] [address] 29740- 0996 Aug, [facility] [id number] [place] [address] 62833- 2032 Aug, [facility] [id number] [place] [address] 69906- 1804 Aug, [facility] [address], [place] [address]- 4846 Jul, [facility] [id number] [place] [address] 95137- 4261 Jul, [facility] [id number] [place] [address] 88564- 3346 Jul, [facility] [id number] [place] [address] 16363- 2258 Jul, Arthritis M19.90 ; Chronic hepatitis C without hepatic coma B18.2 and Left hip pain M25.552 [facility] [id number] [place] [address] 31372- 9637 Jul, Left knee pain M25.562 [facility] [id number] [place] [address] 89291- 0306 Jul, Combined drug dependence excluding opioids, 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 ; Anxiety F41.9 ; Other disorder of impulse control 312.39 and Unspecified episodic mood disorder F39 [facility] [address] [place] [address] 26386- 0845 Jul, Left knee pain M25.562 [facility] [address] [place] [address] 24384- 6522 Jul, Left knee pain M25.562 and Left hip pain M25.552 [facility] [address] [place] [address] 94107- 4804 Jul, [facility] [address] [place] [address] 12855- 3771 June, [facility] [id number] [place] [address] 88703- 3550 June, Combinations of drug dependence excluding opioid type drug, unspecified abuse 304.80 ; Other disorder of impulse control 312.39 ; Unspecified episodic mood disorder F39 and Anxiety F41.9 [facility] [address] [address]- 6988 June, Other fatigue R53.83 ; Headache R51 and Left knee pain M25.562 [facility] [id number] [place] [address] 80402- 0294 June, Unspecified episodic mood disorder F39 ; Combinations of drug dependence excluding opioid type drug, unspecified abuse 304.80 ; Other disorder of impulse control 312.39 and Anxiety F41.9 [facility] [id number] [place] [address] 34415- 3788 June, Anxiety F41.9 [facility] [id number] [place] [address] 79457- 8151 June, Pain in left knee M25.562 [facility] [id number] [place] [address] 07528- 4377 June, Anxiety F41.9 and Combinations of drug dependence excluding opioid type drug, unspecified abuse 304.80 [facility] [id number] [place] [address] 92474- 3458 June, Unspecified episodic mood disorder 296.90 ; Combinations of drug dependence excluding opioid type drug, unspecified abuse 304.80 and Other disorder of impulse control 312.39 [facility] [address], [place] [address]- 5440 June, Anxiety F41.9 and Unspecified episodic mood disorder 296.90 [facility] [address] [place] [address] 35979- 6053 May, Arthritis M19.90 [facility] [address] [place] [address] 61006- 6505 May, Arthritis M19.90 [facility] [id number] [place] [address] 80435- 0178 May, Anxiety F41.9 ; Combinations of drug dependence excluding opioid type drug, unspecified abuse 304.80 and Other disorder of impulse control 312.39 [facility] [address] [address]- 4389 18 May, 2015 Left knee pain M25.562 [facility] [address] [place] [address]- 4177 14 May, 2015 Arthritis M19.90 [facility] [address] [address]- 2523 May, [facility] [id number] [place] [address] 73681- 7926 May, Anxiety F41.9 ; Unspecified episodic mood disorder 296.90 ; Combinations of drug dependence excluding opioid type drug, unspecified abuse 304.80 and Other disorder of impulse control 312.39 [facility] [address] [place] [address] 45790- 7857 May, Left knee pain M25.562 [facility] [address] [place] [address] 31333- 4488 May, Left knee pain M25.562 ; Combinations of drug dependence excluding opioid type drug, unspecified abuse 304.80 ; Other disorder of impulse control 312.39 ; Fibromyalgia M79.7 ; Hypertension I10 ; Unspecified episodic mood disorder 296.90 and Left hip pain M25.552 [facility] [address] [place] [address] 06024- 1268 May, Unspecified episodic mood disorder 296.90 ; Other disorder of impulse control 312.39 ; Combinations of drug dependence excluding opioid type drug, unspecified abuse 304.80 and Anxiety F41.9 [facility] [id number] [place] [address] May, Left knee pain M25.562 ; Combinations of drug dependence excluding opioid type drug, unspecified abuse 304.80 ; Other disorder of impulse control 312.39 ; Fibromyalgia M79.7 ; Hypertension I10 ; Unspecified episodic mood disorder 296.90 and Left hip pain M25.552 [facility] [address] [address] May, Anxiety F41.9 ; Unspecified episodic mood disorder 296.90 ; Other disorder of impulse control 312.39 and Combinations of drug dependence excluding opioid type drug, unspecified abuse 304.80 [facility] [id number] [place] [id number] 30 Apr, 2015 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 and 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, implants and grafts, initial encounter T84.82XA [facility] [id number] [place] [address]- [address]26 28 Apr, 2015 Anxiety F41.9 ; Unspecified episodic mood disorder 296.90 ; Combinations of drug dependence excluding opioid type drug, unspecified abuse 304.80 and Other disorder of impulse control 312.39 [facility] [id number] [place] [address] 39259- 7889 25 Apr, 2015 Arthritis M19.90 [facility] [id number] [place] [address] 16453- 5088 Apr, Anxiety F41.9 ; Unspecified episodic mood disorder 296.90 ; Combinations of drug dependence excluding opioid type drug, unspecified abuse 304.80 and Other disorder of impulse control 312.39 [facility] [id number] [place] [address] 30379- 5190 17 Apr, 2015 Arthritis M19.90 [facility] [address], [place] [address] 7397 15 Apr, 2015 [facility] [id number] [place] [address] 37607- 7065 15 Apr, 2015 [facility] [id number] [place] [address] 21224- 2366 14 Apr, 2015 Unspecified episodic mood disorder 296.90 ; Combinations of drug dependence excluding opioid type drug, unspecified abuse 304.80 ; Other disorder of impulse control 312.39 and Anxiety F41.9 [facility] [address], [place] [address] 11 Apr, 2015 Left knee pain M25.562 [facility] [id number] [address]- 2776 Apr, [place] [id number] [place] [address] 73845- 5802 Mar, Unspecified episodic mood disorder 296.90 ; Anxiety F41.9 ; Other disorder of impulse control 312.39 and Combinations of drug dependence excluding opioid type drug, unspecified abuse 304.80 [place] [id number] [place] [address] 60848- 9932 Mar, Hyperpigmentation L81.9 [place] [id number] [place] [address] 54596- 7849 Mar, Arthritis M19.90 and Anxiety F41.9 [place] [id number] [place] [address] 88428- 4785 Mar, Unspecified episodic mood disorder F39 ; Combined drug dependence excluding opioids, 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 ; Other disorder of impulse control F63.89 and Anxiety F41.9 [address] [place] [id number] [place] [address] 65151- 3081 12 Mar, 2015 Well woman exam Z01.419 ; Other fatigue R53.83 ; Hot flashes N95.1 ; Depression, unspecified depression type F32.9 and Body mass index (BMI) of 23.0-23.9 in adult Z68.23 [address] [place] [address] 65844- 1671 11 Mar, 2015 Unspecified episodic mood disorder 296.90 ; Other disorder of impulse control 312.39 and Anxiety F41.9 [place] [address] [place] [address] 03644- 9623 11 Mar, 2015 Well woman exam Z01.419 [...] of breast Z12.39 and Limited mobility Z74.[address] 08258- 9268 Mar, [address] [address]- 2163 Mar, [address] 77640- 7701 Mar, [address] 57456- 1578 Mar, Other specified complication of internal orthopedic prosthetic devices, implants and grafts, initial encounter T84.89XA ; Fibromyalgia M79.7 ; Hypertension I10 ; Anemia D64.9 ; Insomnia G47.00 ; Anxiety F41.9 ; Arthritis M19.90 and Migraine G43.[address] 78582- 0293 Mar, [place] [id number] [place] [address] 49661- 4789 Feb, [address] 08469- 5134 Feb, Arthritis M19.90 and Anxiety F41.[address] 21153- 9286 Feb, [address] 09014- 6845 Feb, [place] [id number] [place] [address] 72421- 2575 Feb, [id number] [place] [address]- 2444 Feb, [facility] [address] [place] [address]- 4808 Feb, Anxiety F41.9 [facility] [address] [place] [address]- 4348 15 Feb, 2015 [facility] [address] [place] [address]- 1082 Feb, [facility] [address] [place] [address]- 2700 Feb, 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 and Fibromyalgia M79.7 [facility] [address] [place] [address]- 5894 Feb, [facility] [address], [place] [address]- 5964 Jan, [facility] [address] [place] [address]- 2628 Jan, [facility] [address] [place] [address]- 0951 Jan, [facility] [address] [place] [address]- 2996 24 Jan, 2015 [facility] [address], [place] [address]- 3654 16 Jan, 2015 [facility] [address], [place] [address]- 7636 08 Jan, 2015 [facility] [address] [place] [address]- 1300 07 Jan, 2015 [facility] [address] [place] [address]- 4007 07 Jan, 2015 [facility] [address] [place] [address]- 4433 Dec, [facility] [id number] [address]- 3400 17 Dec, 2014 Left knee pain M25.562 [facility] [id number] [place] [address] 90370- 4633 17 Dec, 2014 Left knee pain M25.562 [facility] [id number] [place] [address] 58046- 0123 16 Dec, 2014 Fibromyalgia M79.7 ; Hypertension I10 and Arthritis M19.90 [facility] [id number] [place] [address] 20843- 5394 Dec, [facility] [id number] [place] [address] 37951- 9923 Dec, [facility] [id number] [place] [address] 05376- 0035 Dec, [facility] [id number] [place] [address] 08657- 1714 Dec, [facility] [id number] [place] [address] 90889- 2435 Nov, [facility] [id number] [place] [address] 27328- 3045 Nov, [facility] [id number] [place] [address] 97416- 4357 Nov, [facility] [id number] [place] [address] 39262- 7707 Nov, Hypertension I10 [facility] [address], [place] [address]- 5339 23 Oct, 2014 [facility] [id number] [place] [address] 07783- 6485 17 Oct, 2014 [facility] [address], [place] [address]- 8537 Oct, [facility] [id number] [place] [address] 16250- 9116 Oct, [facility] [address] [id number] [place] [address]- 9694 Oct, [facility] [address] [id number] [place] [address]- 8075 Sep, [facility] [address] [id number] [place] [address]- 2145 Sep, [facility] [address] [id number] [place] [address]- 1567 Sep, Hip pain associated with recalled total hip arthroplasty hardware 996.77 [facility] [address] [id number] [place] 8904 Sep, [facility] [address] [id number] [place] [address]- 6761 Sep, [facility] [address] [id number] [place] [address]- 5866 Sep, [facility] [address] [id number] [place] [address]- 7599 Aug, [facility] [address] [id number] [place] 6379 Jul, [facility] [address] [id number] [place] [address]- 0375 June, [facility] [address] [id number] [place] [address]- 7502 June, [facility] [place] [facility] [address] [id number] [place] [address]- 8893 June, [facility] [place] [facility] [address] [id number] [place] [address]- 6178 June, [facility] [place] [facility] [address] [id number] [place] [address]- 4481 June, [facility] [address] [id number] [place] [address]- 1422 June, [facility] [place] [facility] [address] [id number] [place] [address]- 4021 30 May, 2014 [facility] [place] [facility] [address] [id number] [place] [address]- 9884 14 May, 2014 [facility] [place] [facility] [address] [id number] [place] [address]- 7438 May, [facility] [place] [facility] [address] [id number] [place] [address]- 7128 30 Apr, 2014 [facility] [place] [facility] [address] [id number] [place] [address]- 3836 30 Apr, 2014 [facility] [place] [facility] [address] [id number] [place] [address]- 8758 Apr, [facility] [place] [facility] [address] [id number] [place] [address]- 9359 Apr, [facility] [place] [facility] [address] [id number] [place] [address]- 2537 Apr, [facility] [place] [facility] [address] [id number] [place] [address]- 0158 Apr, [facility] [place] [facility] [address] [id number] [place] [address]- 6077 Apr, [facility] [place] [facility] [address] [id number] [place] [address]- 7256 Apr, [facility] [place] [facility] [address] [id number] [place] [address]- 0089 Apr, [facility] [place] [facility] [address] [id number] [place] [address]- 1783 Apr, [facility] [place] [facility] [address] [id number] [place] [address]- 9224 Apr, [facility] [place] [facility] [address] [id number] [place] [address]- 3224 26 Mar, 2014 [facility] [place] [facility] [address] [id number] [place] [address]- 0065 Mar, 2014 [facility] [place] [facility] [address] [id number] [place] [address]- 0389 16 Mar, 2014 [facility] [place] [facility] [address] [id number] [place] [address]- 3628 16 Mar, 2014 [facility] [place] [facility] [address] [id number] [place] [address]- 2961 10 Mar, 2014 [facility] [place] [facility] [address] [id number] [place] [address]- 6176 10 Mar, 2014 [facility] [place] [facility] [address] [id number] [place] [address]- 0959 Feb, [facility] [place] [facility] [address] [id number] [place] [address]- 0493 Feb, [facility] [address] [id number] [place] [address]- 5896 Feb, [facility] [place] [facility] [address] [id number] [place] [address]- 7353 Feb, [facility] [place] [facility] [address] [id number] [place] [address]- 1923 Jan, [facility] [place] [facility] [address] [id number] [place] [address]- 2205 Jan, [facility] [place] [facility] [address] [id number] [place] [address]- 5635 Jan, [facility] [place] [facility] [address] [id number] [place] [address]- 8544 Jan, [facility] [place] [facility] [address] [id number] [place] [address]- 5074 Dec, [facility] [place] [facility] [address] [id number] [place] [address]- 7805 Dec, [facility] [place] [facility] [address] [facility] [id number] [place] [address]- 1648 Dec, [facility] [place] [facility] [address] [id number] [place] [address]- 7128 Dec, [facility] [place] [facility] [address] [id number] [place] [address]- 4787 Dec, [facility] [place] [facility] [address] [id number] [place] [address]- 6423 Dec, [facility] [place] [facility] [address] [id number] [place] [address]- 9354 Dec, [facility] [place] [facility] [address] [id number] [place] [address]- 7544 Dec, [facility] [place] [facility] [address] [id number] [place] [address]- 2271 Dec, [facility] [place] [facility] [address] [id number] [place] [address]- 6778 Dec, [facility] [place] [facility] [address] [id number] [place] [address]- 3802 Dec, [facility] [place] [facility] [address] [id number] [place] [address]- 9420 31 Nov, 2013 [facility] [place] [facility] [address] [id number] [place] [address]- 0930 Nov, [facility] [place] [facility] [address] [id number] [place] [address]- 8690 28 Nov, 2013 [facility] [place] [facility] [address] [id number] [place] [address]- 4422 17 Nov, 2013 [facility] [place] [facility] [address] [id number] [place] [address]- 9814 17 Nov, 2013 [facility] [place] [facility] [address] [id number] [place] [address]- 3590 15 Nov, 2013 [facility] [place] [facility] [address] [id number] [place] [address]- 5940 15 Nov, 2013 [facility] [place] [facility] [address] [id number] [place] [address]- 3105 15 Nov, 2013 [facility] [place] [facility] [address] [id number] [place] [address]- 3629 15 Nov, 2013 [facility] [place] [facility] [address] [id number] [place] [address]- 1399 14 Nov, 2013 [facility] [place] [facility] [address] [id number] [place] [address]- 7579 14 Nov, 2013 [facility] [place] [facility] [address] [id number] [place] [address]- 8102 14 Nov, 2013 [facility] [place] [facility] [address] [id number] [place] [address]- 3753 14 Nov, 2013 [facility] [place] [facility] [address] [id number] [place] [address]- 4368 13 Nov, 2013 [facility] [place] [facility] [address] [id number] [place] [address]- 4442 13 Nov, 2013 [facility] [place] [facility] [address] [id number], [place] [address]- 1521 11 Nov, 2013 [facility] [place] [facility] [address] [id number], [place] [address]- 7874 11 Nov, 2013 [facility] [place] [facility] [address] [id number], [place] [address]- 8001 07 Nov, 2013 [facility] [place] [facility] [address] [id number], [place] [address]- 6369 07 Nov, 2013 [facility] [place] [facility] [address] [id number], [place] [address]- 7003 07 Nov, 2013 [facility] [place] [facility] [address] [id number], [place] [address]- 7071 07 Nov, 2013 [facility] [place] [facility] [address] [id number] 1536 30 Oct, 2013 [facility] [place] [facility] [address] [id number]- 1404 30 Oct, 2013 [facility] [place] [facility] [address] [id number] [place] [address]- 0576 26 Oct, 2013 [facility] [place] [facility] [address] [id number] [place] [address] 2546 26 Oct, 2013 [facility] [place] [facility] [address] [id number] [place] [address] 2546 22 Oct, 2013 [facility] [place] [facility] [address] [id number] [place] [address] 254 22 Oct, 2013 [facility] [place] [facility] [address] [id number] [place] [address] 2542 18 Oct, 2013 [facility] [place] [facility] [address] [id number] [place] [address]- 9008 18 Oct, 2013 [facility] [place] [facility] [address] [id number] [place] [address]- 3482 18 Oct, 2013 [facility] [place] [facility] [address] [id number] [place] [address]- 8719 18 Oct, 2013 [facility] [place] [facility] [address] [id number] [place] [address]- 3145 12 Oct, 2013 [facility] [place] [facility] [address] [id number] [place] [address] 2544 Oct, 2013 [facility] [place] [facility] [address] [id number] [place] [address] 2548 Oct, 2013 [facility] [place] [facility] [address] [id number] [place] [address] 2547 Oct, 2013 [facility] [place] [facility] [address] [id number] [place] [address]- 7824 Sep, [facility] [place] [facility] [address] [id number] [place] [address]- 9288 Sep, [facility] [place] [facility] [address] [id number] [place] [address]- 8355 Sep, [facility] [place] [facility] [address] [id number] [place] [address]- 9267 Sep, [facility] [place] [facility] [address] [id number] [place] [address]- 8782 Sep, [facility] [place] [facility] [address] [id number] [place] [address]- 6264 Sep, [facility] [place] [facility] [address] [id number] [place] [address]- 1034 Sep, [facility] [place] [facility] [address] [id number] [place] [address]- 0603 Sep, [facility] [place] [facility] [address] [id number] [place] [address]- 4627 Sep, [facility] [place] [facility] [address] [id number] [place] [address]- 2852 Sep, [facility] [place] [facility] [address] [id number] [place] [address]- 5606 Sep, [facility] [place] [facility] [address] [id number] [place] [address]- 9609 Sep, [facility] [place] [facility] [address] [id number] [place] [address]- 5871 Sep, [facility] [place] [facility] [address] [id number] [place] [address]- 4206 Sep, [facility] [place] [facility] [address] [id number] [place] [address]- 4831 Sep, [facility] [place] [facility] [address] [id number] [place] [address]- 1297 Sep, [facility] [place] [facility] [address] [id number] [place] [address]- 1831 Sep, [facility] [place] [facility] [address] [id number] [place] [address]- 7594 Sep, [facility] [place] [facility] [address] [id number] [place] [address]- 6949 Aug, [facility] [place] [facility] [address] [id number] [place] [address]- 3611 Aug, [facility] [place] [facility] [address] [id number] [place] [address]- 5776 Aug, [facility] [place] [facility] [address] [id number] [place] [address]- 7940 Aug, [facility] [place] [facility] [address] [id number] [place] [address]- 2405 Aug, [facility] [place] [facility] [address] [id number] [place] [address]- 7949 Aug, [facility] [place] [facility] [address] [id number] [place] [address]- 0115 Jul, [facility] [place] [facility] [address] [id number] [place] [address]- 8829 Jul, [facility] [place] [facility] [address] [id number] [place] [address]- 9529 Jul, [facility] [place] [facility] [address] [id number] [place] [address]- 2661 Jul, [facility] [place] [facility] [address] [id number] [place] [address]- 3971 June, [facility] [place] [facility] [address] [id number] [place] [address]- 1539 June, [facility] [place] [facility] [address] [id number] [place] [address] June, [facility] [place] [facility] [address] [id number] [place] [address] June, [facility] [place] [facility] [address] [id number] [place] [address] June, [facility] [place] [facility] [address] [id number] [place] [address] June, [facility] [place] [facility] [address] [id number] [place] [address] June, [facility] [place] [facility] [address] [id number] [place] [address] 29 May, 2013 [facility] [address] [id number] [place] [address] 29 May, 2013 [facility] [place] [facility] [address] [id number] [place] [address] May, [facility] [place] [facility] [address] [id number] [place] [address] May, [facility] [place] [facility] [address] [id number] [place] [address] May, [facility] [place] [facility] [address] [id number] [place] [address] May, [facility] [place] [facility] [address] [id number] [place] [address] 31 Apr, 2013 [facility] [place] [facility] [address] [id number] [place] [address] 31 Apr, 2013 [facility] [address] [id number] [place] [address] 28 Apr, 2013 [facility] [place] [facility] [address] [id number] [place] [address] 28 Apr, 2013 [facility] [address] [id number] [place] [address] 14 Apr, 2013 [facility] [place] [facility] [address] [id number] [place] [address] 14 Apr, 2013 [facility] [place] [facility] [address] [id number] [place] [address] 12 Apr, 2013 [facility] [place] [facility] [address] [id number] [place] [address] 12 Apr, 2013 [facility] [place] [facility] [address] [id number] [place] [address] 10 Apr, 2013 [facility] [place] [facility] [address] [id number] [place] [address] Apr, [facility] [place] [facility] [address] [id number] [place] [address] Apr, [facility] [place] [facility] [address] [id number] [place] [address]- 2017 Apr, [facility] [place] [facility] [address] [id number] [place] [address] Apr, [facility] [place] [facility] [address] [id number] [place] [address] 4468 Apr, [facility] [place] [facility] [address] [id number] [place] [address] Mar, [facility] [place] [facility] [address] [id number] [place] [address] Mar, [facility] [place] [facility] [address] [id number] [place] [address] Mar, [facility] [place] [facility] [address] [id number] [place] [address] Feb, [facility] [place] [facility] [address] [id number] [place] [address] Feb, [facility] [place] [facility] [address] [id number] [place] [address] Feb, [facility] [place] [facility] [address] [id number] [place] [address] Feb, [facility] [place] [facility] [address] [id number] [place] [address] Feb, [facility] [place] [facility] [address] [id number] [place] [address] Feb, [facility] [place] [facility] [address] [id number] [place] [address] Feb, [facility] [place] [facility] [address] [id number] [place] [address] 1496 Feb, [facility] [place] [facility] [address] [id number] [place] [address] Feb, [facility] [address] [id number] [place] [address] Feb, [facility] [address] [id number] [place] [address] Jan, [facility] [address] [id number] [place] [address] Jan, [facility] [address] [id number] [place] [address] Jan, [facility] [address] [id number] [place] [address]- [address] Jan, [facility] [address] [id number] [place] [address]- [address] Jan, [facility] [address] [id number] [place] [address]- [address] Jan, [facility] [address] [id number] [place] [address]- [address] Jan, [facility] [address] [id number] [place] [address] 47[address] Jan, [facility] [address] [id number] [place] [address] Jan, [facility] [address] [id number] [place] [address]- [address] 19 Jan, 2013 [facility] [place] [facility] [address] [id number] [place] [address] 17 Jan, 2013 [facility] [place] [facility] [address] [id number] [place] [address]- 98[address] 17 Jan, 2013 [facility] [place] [facility] [address] [id number] [place] [address] 16 Jan, 2013 [facility] [address] [id number] [place] [address] Jan, [facility] [place] [facility] [address] [id number] [place] [address] Jan, [facility] [address] [id number] [place] [address] Jan, [facility] [place] [facility] [address] [id number] [place] [address] Jan, [facility] [address] [address] [id number] [place] [address] Jan, [facility] [address] [id number] [place] [address] Jan, [facility] [address] [id number] [place] [address] Jan, [facility] [address] [id number] [place] [address] Jan, [facility] [address] [id number] [place] [address] Dec, [facility] [address] [id number] [place] [address] 3712 Dec, [facility] [address] [id number] [place] [address] Dec, [facility] [place] [facility] [address] [id number] [place] [address] 95[address] Dec, [facility] [place] [facility] [address] [id number] [place] [address] 1990 Dec, [facility] [place] [facility] [address] [id number] [place] [address] 9439 Dec, [facility] [place] [facility] [address] [id number] [place] [address] 9800 Dec, [facility] [place] [facility] [address] [id number] [place] [address] 6649 Dec, [facility] [place] [facility] [address] [id number] [place] [address] 4976 Dec, [facility] [place] [facility] [address] [id number] [place] [address] 5362 Dec, [facility] [place] [facility] [address] [id number] [place] [address] Nov, [facility] [place] [facility] [address] [id number] [place] [address] 7044 Nov, [facility] [place] [facility] [address] [id number] [place] [address]- 6728 Nov, [facility] [place] [facility] [address] [id number] [place] [address] 5107 Nov, [facility] [place] [facility] [address] [id number] [place] [address] 7134 Nov, [facility] [place] [facility] [address] [id number] [place] [address]- 9570 Nov, [facility] [place] [facility] [address] [id number] [place] [address] 1651 Nov, [facility] [place] [facility] [address] [id number] [place] [address]- 6561 Nov, [facility] [place] [facility] [address] [id number] [place] [address] 0422 Nov, [facility] [place] [facility] [address] [id number], [place] [address] 1883 Nov, [facility] [place] [facility] [address] [id number], [place] [address]30 26 Oct, 2012 [facility] [place] [facility] [address] [id number] [place] [address] Oct, [facility] [place] [facility] [address] [id number] [place] [address]- 5873 Oct, [facility] [place] [facility] [address] [id number] [place] [address]- 6561 25 Oct, 2012 [facility] [place] [facility] [address] [id number] [place] [address] 2546 Oct, [facility] [address] [id number] [place] [address] 9693 Sep, [facility] [address] [id number] [place] [address]- 2546 Sep, [facility] [address] [id number] [place] [address] 7396 Aug, [facility] [address] [id number] [place] [address] 1847 Aug, [facility] [address] [id number] [place] [address] 3064 Aug, [facility] [address] [id number] [place] [address] 3287 Aug, [facility] [address] [id number] [place] [address] 6179 Aug, [facility] [address] [id number] [place] [address] 0236 Aug, [facility] [address] [id number] [place] [address] 4003 Aug, [facility] [address] [id number] [place] [address] 0503 Jul, [facility] [address] [id number] [place] [address]- 6436 Jul, [facility] [address] [id number] [place] [address]- 2478 June, [facility] [place] [facility] [address] [id number] [place] [address]- 9233 June, [facility] [address] [id number] [place] [address] 1376 June, [facility] [address] [id number] [place] [address] June, [facility] [address] [id number] [place] [address] 2743 June, [facility] [address] [id number] [place] [address]- 3612 June, [facility] [address] [id number] [place] [address] June, [facility] [address] [id number] [place] [address]- 6179 June, [facility] [address] [id number] [place] [address] June, [facility] [address] [id number] [place] [address]- 7192 June, [facility] [address] [id number] [place] [address] 6559 June, [facility] [address] [id number] [place] [address]- 0873 May, [facility] [address] [id number] [place] [address] 8152 May, [facility] [address] [id number] [place] [address]- 2740 May, [facility] [address] [id number] [place] [address]- 4082 May, [facility] [address] [id number] [place] [address]- 8816 Apr, [facility] [place] [facility] [address] [id number] [place] [address]- 5219 Apr, [facility] [place] [facility] [address] [id number] [place] [address]- 6379 Apr, [facility] [place] [facility] [address] [id number] [place] [address]- 2644 Mar, [facility] [place] [facility] [address] [id number] [place] [address]- 9415 11 Mar, 2012 [facility] [address] [id number] [place] [address]- 3901 29 Feb, 2012 [facility] [address] [id number] [place] [address]- 1199 Feb, [facility] [address] [id number] [place] [address]- 0896 Feb, [facility] [address] [id number] [place] [address]- 2138 Feb, [facility] [address] [id number] [place] [address]- 8848 Feb, [facility] [address] [id number] [place] [address]- 9255 Feb, [facility] [address] [id number] [place] [address]- 3872 Feb, [facility] [address] [id number] [place] [address]- 8862 31 Jan, 2012 [facility] [address] [id number] [place] [address] 31 Jan, 2012 [facility] [address] [id number] [place] [address]- 5073 Jan, [facility] [address] [id number] [place] [address]- 3566 17 Jan, 2012 [facility] [address] [id number] [place] [address] 2547 17 Jan, 2012 [facility] [address] [id number] [place] [address]- 0867 Jan, [facility] [place] [facility] [address] [id number] [place] [address]- 8829 Jan, [facility] [address] [id number] [place] [address]- 5262 10 Jan, 2012 [facility] [place] [facility] [address] [id number] [place] [address]- 2774 Jan, [facility] [place] [facility] [address] [id number] [place] [address]- 0829 Jan, [facility] [place] [facility] [address] [id number] [place] Jan, [facility] [place] [facility] [address] [id number] [place] [address]- 7488 Dec, [facility] [place] [facility] [address] [id number] [place] [address]- 2497 Dec, [facility] [place] [facility] [address] [id number] [place] [address]- 9498 Dec, [facility] [place] [facility] [address] [id number] [place] [address]- 1712 Dec, [facility] [place] [facility] [address] [id number] [place] [address]- 0404 Nov, [facility] [place] [facility] [address] [id number] [place] [address]- 5546 Nov, [facility] [place] [facility] [address] [id number] [place] [address]- 3254 Nov, [facility] [place] [facility] [address] [id number] [place] [address]- 0078 27 Oct, 2011 [facility] [place] [facility] [address] [id number] [place] [address]- 9663 24 Sep2011 [facility] [place] [facility] [address] [id number] [place] [address]- 1223 21 Sep2011 [facility] [place] [facility] [address] [id number] [place] [address]- 2039 10 Sep2011 [facility] [place] [facility] [address] [id number] [place] [address]- 6985 07 Sep2011 [facility] [place] [facility] [address] [id number] [place] [address]- 4687 04 Oct, 2011 [facility] [place] [facility] [address] [id number] [place] [address]- 3204 Oct, [facility] [place] [facility] [address] [id number] [place] [address]- 6553 Sep, [facility] [place] [facility] [address] [id number] [place] [address]- 8256 Sep, [facility] [place] [facility] [address] [id number] [place] [address]- 7093 Sep, [facility] [place] [facility] [address] [id number] [place] [address]- 7553 Sep, [facility] [place] [facility] [address] [id number] [place] [address]- 5121 Sep, [facility] [place] [facility] [address] [id number] [place] [address]- 9544 Aug, [facility] [place] [facility] [address] [id number] [place] [address]- 8606 Aug, [facility] [place] [facility] [address] [id number] [place] [address]- 3256 Aug, [facility] [place] [facility] [address] [id number] [place] [address]- 1799 Aug, [facility] [place] [facility] [address] [id number] [place] [address]- 1162 Aug, [facility] [place] [facility] [address] [id number] [place] [address]- 0507 Aug, [facility] [place] [facility] [address] [id number] [place] [address]- 5963 Aug, [facility] [place] [facility] [address] [id number] [place] [address]- 7090 Jul, [facility] [place] [facility] [address] [id number] [place] [address]- 1762 Jul, [facility] [place] [facility] [address] [id number] [place] [address]- 8631 Jul, [facility] [address] [id number] [place] [address]- 2470 Jul, [facility] [address] [id number] [place] [address]- 1292 Jul, [facility] [address] [id number] [place] [address]- 3445 Jul, [facility] [address] [id number] [place] [address]- 3337 07 Jul, 2011 [facility] [address] [id number] [place] [address]- 9488 Jul, [facility] [address] [id number] [place] [address]- 0637 Jul, [facility] [address] [id number] [place] [address]- 0165 June, [facility] [address] [id number] [place] [address]- 1871 June, [facility] [address] [id number] [place] [address]- 6609 June, [facility] [address] [id number] [place] [address]- 3247 June, [facility] [address] [id number] [place] [address]- 4654 June, [facility] [address] [id number] [place] [address]- 9632 June, [facility] [place] [facility] [address] [id number] [place] [address]- 9275 June, [facility] [place] [facility] [address] [id number] [id number] 3069 June, [facility] [address] [id number] [place] [address]- 1529 May, [facility] [place] [facility] [address] [id number] [place] [address]- 7379 May, [facility] [place] [facility] [address] [id number] [place] [address]- 6786 May, [facility] [place] [facility] [address] [id number] [place] [address]- 2822 May, [facility] [place] [facility] [address] [id number] [place] [address]- 6086 May, [facility] [place] [facility] [address] [id number] [place] [address]- 2446 May, [facility] [place] [facility] [address] [id number] [place] [address]- 6969 May, [facility] [place] [facility] [address] [id number] [place] [address]- 5104 Apr, [facility] [place] [facility] [address] [id number] [place] [address]- 3913 Apr, [facility] [place] [facility] [address] [id number] [place] [address]- 8690 Apr, [facility] [place] [facility] [address] [id number] [place] [address]- 6284 Apr, [facility] [place] [facility] [address] [id number] [place] [address]- 9298 Apr, [facility] [place] [facility] [address] [id number], [place] [address]- 7639 Apr, [facility] [place] [facility] [address] [id number] [place] [address]- 0698 Apr, [facility] [place] [facility] [address] [id number] [place] [address]- 5350 Mar, [facility] [place] [facility] [address] [id number] [place] [address]- 5976 Mar, [facility] [place] [facility] [address] [id number], [place] [address]- 6012 14 Mar, 2011 [facility] [address] [id number] [place] [address]- 1586 13 Mar, 2011 [facility] [address] [id number] [place] [address]- 8236 09 Mar, 2011 [facility] [address] [id number] [place] [address]- 3836 Mar, [facility] [place] [facility] [address] [id number] [place] [address]- 5945 Mar, [facility] [address] [id number] [place] [address]- 7964 Feb, [facility] [address] [id number] [place] [address]- 4695 Feb, [facility] [address] [id number] [place] [address]- 9346 Feb, [facility] [address] [id number] [place] [address]- 0567 Feb, [facility] [address] [id number] [place] [address]- 8411 Feb, [facility] [address] [id number] [place] [address]- 5066 Feb, [facility] [address] [id number] [place] [address]- 7674 Feb, [facility] [address] [id number] [place] [address]- 8682 Feb, [facility] [place] [facility] [address] [id number] [place] [address]- 2139 Feb, [facility] [place] [facility] [address] [id number] [place] [address]- 7118 Feb, [facility] [address] [id number] [place] [address]- 7184 Jan, [facility] [place] [facility] [address] [id number] [place] [address]- 3227 Jan, [facility] [place] [facility] [address] [id number] [place] [address]- 6220 Jan, [facility] [place] [facility] [address] [id number] [place] [address]- 5111 Jan, [facility] [place] [facility] [address] [id number] [place] [address]- 9778 Jan, [facility] [address] [id number] [place] [address]- 2637 Jan, [facility] [place] [facility] [address] [id number] [place] [address]- 6025 Jan, [facility] [address] [id number] [place] [address]- 7791 Jan, [facility] [address] [id number] [place] [address]- 5971 Jan, [facility] [place] [facility] [address] [id number] [place] [address]- 2092 Jan, [facility] [place] [facility] [address] [id number] [place] [address]- 6062 Jan, [facility] [place] [facility] [address] [id number] [place] [address]- 9198 17 Dec, 2010 [facility] [place] [facility] [address] [id number] [place] [address]- 7832 17 Dec, 2010 [facility] [place] [facility] [address] [id number] [place] [address]- 1257 17 Dec, 2010 [facility] [place] [facility] [address] [id number] [place] [address]- 4525 16 Dec, 2010 [facility] [place] [facility] [address] [id number] [place] [address]- 8798 14 Dec, 2010 [facility] [place] [facility] [address] [id number] [place] [address]- 1344 Dec, [facility] [place] [facility] [address] [id number] [place] [address]- 4445 Dec, [facility] [place] [facility] [address] [id number] [place] 5151 Dec, [facility] [place] [facility] [address] [id number] [place] [address]- 4694 Dec, [facility] [place] [facility] [address] [id number] [place] [address]- 0881 Nov, [facility] [place] [facility] [address] [id number] [place] [address] Nov, [facility] [place] [facility] [address] [id number] [place] [address] Nov, [facility] [place] [facility] [address] [id number] [place] [address] Nov, [facility] [place] [facility] [address] [id number] [place] [address] 24 Nov, 2010 [facility] [place] [facility] [address] [id number] [place] [address] Nov, [facility] [place] [facility] [address] [id number] [place] [address] Aug, [facility] [place] [facility] [address] [id number], [place] [address] Feb, [facility] [place] [facility] [address] [id number] [place] [address] 14 Jan, 2010 [facility] [place] [facility] [address] [id number] [place] [address] [address] Jan, [facility] [place] [facility] [address] [id number] [place] [address] Jan, [facility] [place] [facility] [address] [id number] [place] [address] Jan, [facility] [place] [facility] [address] [id number] [address] Jan, [facility] [address] [id number], [place] [address] Dec, [facility] [id number], [place] [address] Dec, [facility] [id number], [place] [address] Dec, [facility] [id number], [place] [address] Dec, [facility] [id number], [place] [address] Nov, [facility] [id number], [place] [address] Nov, [facility] [id number], [place] [address] Nov, IMMUNIZATIONS No Known Immunizations SOCIAL HISTORY Never Assessed REASON FOR VISIT Requests return call PLAN OF CARE VITAL SIGNS MEDICATIONS Medication Instructions Dosage Frequency Start Date End Date Duration Status Mavyret 100-40 MG Orally Once a day 3 tablets 24h Sep, Oct, 8 weeks Active RESULTS No Results PROCEDURES No Known [...]
--- OUTSIDE RECORDS SUMMARY | 2018-01-13 21:58 | XMS REPORT ---
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 [id number] [address] Nov, [facility] [id number] [address] Oct, [facility] [address] [facility] [id number] [address] 270[address] Oct, Arthritis M19.90 and Unspecified episodic mood disorder F39 [facility] [address] [address] Sep, Chronic hepatitis C without hepatic coma B18.2 [facility] [id number] [place] [address] 15200- 8659 Sep, Gastroesophageal reflux disease, esophagitis presence not specified K21.9 and Other chronic pain G89.29 [facility] [id number] [place] [address] 86929- 6399 Sep, [facility] [id number] [place] [address] 94679- 1913 Sep, [facility] [id number] [place] [address] 47668- 8040 Sep, Chronic hepatitis C without hepatic coma B18.2 [facility] [id number] [place] [address] 97745- 9466 Sep, 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 [facility] [id number] [place] [address] 15924- 3763 Sep, Arthritis M19.90 [facility] [id number] [place] [address] 71912- 0427 Sep, [facility] [id number] [place] [address] 21305- 5455 Sep, Unspecified episodic mood disorder F39 [facility] [id number] [place] [address] 20164- 3028 Aug, [facility] [id number] [place] [address] [id number] Aug, [facility] [id number] [place] [address] 49457- 6943 Aug, Arthritis M19.90 [facility] [id number] [place] [address] 57359- 9846 Aug, [facility] [address] [address] 8540 Aug, Obesity (BMI 30.0-34.9) E66.9 ; Unspecified episodic mood disorder F39 and Hypertension I10 [facility] [address] [id number] [address] 4[address] Aug, Unspecified episodic mood disorder F39 [facility] [id number] [place] [address] 83110- 6411 Aug, [facility] [id number] [place] [address] 40631- 7245 Jul, Unspecified episodic mood disorder F39 [facility] [id number] [place] [address] 58566- 2056 Jul, [facility] [id number] [place] [address] 61409- 9572 Jul, Arthritis M19.90 [facility] [id number] [place] [address] 39476- 4893 Jul, Left hip pain M25.552 ; Hypertension I10 ; Other obesity due to excess calories E66.09 and Body mass index (BMI) of 34.0-34.9 in adult Z68.34 [facility] [address] [address] 0754 Jul, Unspecified episodic mood disorder F39 [facility] [id number] [place] [address] 15763- 0396 June, Gastroesophageal reflux disease, esophagitis presence not specified K21.9 [facility] [id number] [place] [address] 16196- 7655 June, [facility] [id number] [place] [address] 25865- 3064 June, [facility] [id number] [place] [address] 36192- 7970 June, Arthritis M19.90 [facility] [address] [address] 1347 June, [facility] [id number] [place] [address] 78434- 7236 June, [facility] [id number] [place] [address] 20520- 9905 June, Unspecified episodic mood disorder F39 [facility] [id number] [place] [address] 98328- 7522 May, Unspecified episodic mood disorder F39 [facility] [id number] [place] [address] 05522- 0117 May, [facility] [id number] [place] [address] 09555- 5853 May, Arthritis M19.90 [facility] [id number] [place] [address] 39738 -0762 May, Dysuria R30.0 ; Abscess L02.91 and Acute cystitis without hematuria N30.00 [facility] [id number] [place] [address] 04376- 4829 May, Other disorder of impulse control F63.89 ; Unspecified episodic mood disorder F39 ; Combined drug dependence excluding opioids, 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 ; Anxiety F41.9 and Other psychoactive substance dependence, 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 [facility] [address] [address] 7[address] May, [facility] [id number] [place] [address] 56772- 6456 May, 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 ; Unspecified episodic mood disorder F39 ; Combined drug dependence excluding opioids, 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 ; Other psychoactive substance dependence, 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 and Anxiety F41.9 [facility] [address] [address]- 7855 May, Other chronic pain G89.29 ; Left hip pain M25.552 ; Hypertension I10 ; 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, 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9 ; Other psychoactive substance dependence, 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 and Other disorder of impulse control F63.89 [facility] [id number] [place] [address] 20011- 4643 Apr, [facility] [id number] [place] [address] 67569- 0553 Apr, Arthritis M19.90 and Unspecified episodic mood disorder F39 [facility] [id number] [place] [address] 34496- 4037 Apr, Unspecified episodic mood disorder F39 [facility] [address] [address]- 4628 Apr, [facility] [id number] [place] [address] 38508- 5710 08 Apr, 2017 [facility] [id number] [place] [address] 92019- 1955 Apr, Unspecified episodic mood disorder F39 ; Combined drug dependence excluding opioids, 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 ; Anxiety F41.9 ; Other psychoactive substance dependence, 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 and Other disorder of impulse control F63.89 [facility] [id number] [place] [address] 28322- 6784 Mar, Unspecified episodic mood disorder F39 [facility] [address] [address]- 3022 Mar, Gastroesophageal reflux disease, esophagitis presence not specified K21.9 [facility] [address] [address]- 7666 Mar, Arthritis M19.90 and Unspecified episodic mood disorder F39 [facility] [id number] [place] [address] 96536 2546 Feb, [facility] [id number] [place] [address] 64019 2546 Feb, [facility] [id number] [place] [address] 18937- 7706 Feb, [facility] [id number] [place] [address] 80301- 3196 Feb, Arthritis M19.90 [facility] [id number] [place] [address] 70774 2547 Feb, Non-pressure chronic ulcer of right calf, 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 ; Unspecified episodic mood disorder F39 and Left hip pain M25.552 [facility] [address] [address]- 7286 Feb, [facility] [id number] [place] [address] 48232- 6026 Feb, [facility] [id number] [place] [address] 34053 2543 Jan, Arthritis M19.90 [facility] [id number] [place] [address] 79855 2546 Jan, Left hip pain M25.552 and Non-pressure chronic ulcer of right calf, 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 [facility] [address] [address] 1956 Jan, Chronic hepatitis C without hepatic coma B18.2 [facility] [id number] [place] [address] 15396- 2548 Jan, Encounter for immunization Z23 ; Venous insufficiency ( chronic) (peripheral) I87.2 ; Non-pressure chronic ulcer of unspecified calf limited to breakdown of skin L97.201 and Gastroesophageal reflux disease, esophagitis presence not specified K21.9 [facility] [id number] [place] [address] 05098- 9726 Jan, [facility] [id number] [place] [address] 16359- 2543 Jan, Chronic hepatitis C without hepatic coma B18.2 and Encounter for immunization Z23 [facility] [id number] [place] [address] 18998- 7396 Jan, Arthritis M19.90 [facility] [id number] [place] [address] 59952- 5986 Jan, [facility] [id number] [place] [address] 76666- 8657 Dec, [facility] [id number] [place] [address] 67932- 4520 Dec, Unspecified episodic mood disorder F39 [facility] [id number] [place] [address] 75638- 2546 Dec, Arthritis M19.90 [facility] [id number] [place] [address] 44484 2546 Dec, Arthritis M19.90 [facility] [id number] [place] [address] 27029- 2540 Nov, [facility] [id number] [place] [address] 29594- 2546 Nov, [facility] [id number] [place] [address] 00017- 2546 Nov, Other psychoactive substance dependence, 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 ; 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, 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 and Chronic hepatitis C without hepatic coma B18.2 [facility] [id number] [place] [address] 77008- 6155 Nov, Arthritis M19.90 [facility] [id number] [place] [address] 08567 -6575 Oct, Partial thickness burn of abdomen, initial encounter T21.22XA [facility] [id number] [place] [address] 20354- 4749 Oct, [facility] [id number] [place] [address] 65834- 9349 Sep, Arthritis M19.90 [facility] [id number] [place] [address] 29359- 7621 Sep, [facility] [id number] [place] [address] 38889- 3527 Sep, [facility] [id number] [place] [address] 24892- 7635 Sep, Unspecified episodic mood disorder F39 ; Chronic hepatitis C without hepatic coma B18.2 and Left hip pain M25.552 [facility] [id number] [place] [address] 85884- 3476 Sep, Arthritis M19.90 and Left hip pain M25.552 [facility] [id number] [place] [address] 94717- 1946 Aug, [facility] [id number] [place] [address] 07541- 0124 Aug, [facility] [id number] [place] [address] 06611- 4316 Aug, Chronic hepatitis C without hepatic coma B18.2 [facility] [id number] [place] [address] 15612- 4051 Aug, [facility] [id number] [place] [address] 27837- 8632 Aug, Chronic hepatitis C without hepatic coma B18.2 [facility] [id number] [place] [address] 63960- 5903 Aug, 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, 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 [facility] [id number] [place] [address] 04227- 1359 Aug, [facility] [id number] [place] [address] 71049- 4854 Aug, Chronic hepatitis C without hepatic coma B18.2 and Hypertension I10 [facility] [id number] [place] [address] 34967- 3551 Jul, [facility] [id number] [place] [address] 79102- 6058 June, [facility] [id number] [place] [address] 60981- 4208 Apr, Fibromyalgia M79.7 ; Left hip pain M25.552 and Decubitus ulcer of sacral region, stage 1 L89.151 [facility] [id number] [place] [address] 97451- 3541 Apr, [facility] [id number] [place] [address] 90666- 1830 Apr, [facility] [id number] [place] [address] 46034- 9952 Feb, [facility] [id number] [place] [address] 49763- 2638 Dec, Anxiety F41.9 ; Combined drug dependence excluding opioids, 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 and Unspecified episodic mood disorder F39 [facility] [id number] [place] [address] 19375- 5674 Dec, [facility] [id number] [place] [address] 24461- 9096 Nov, [facility] [id number] [place] [address] 60501- 5951 Nov, [facility] [id number] [place] [address] 07635- 5197 Nov, Other disorder of impulse control F63.89 and Anxiety F41.9 [facility] [id number] [place] [address] 32187- 6639 21 Oct, 2015 [facility] [id number] [place] [address] 63477 -1140 14 Oct, 2015 Open wound of left thigh, initial encounter S71.102A [facility] [id number] [place] [address] 78079- 6050 Oct, [facility] [id number] [place] [address] 82556- 2857 Sep, Unspecified episodic mood disorder F39 ; Other disorder of impulse control 312.39 ; Combined drug dependence excluding opioids, 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 and Anxiety F41.9 [facility] [address] [place] [address] 71506- 6792 Sep, Other disorder of impulse control 312.39 ; Combined drug dependence excluding opioids, 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 ; Anxiety F41.9 and Unspecified episodic mood disorder F39 [facility] [address] [place] [address] 52891- 3511 Sep, Other chronic pain G89.29 [facility] [id number] [place] [address] 13038- 5358 Sep, [facility] [id number] [place] [address] 04460- 8159 Sep, [facility] [id number] [place] [address] 52479- 0216 Aug, [facility] [id number] [place] [address] 49116- 9138 Aug, [facility] [id number] [place] [address] 15021- 8296 Aug, [facility] [address] [address]- 4970 Jul, [facility] [id number] [place] [address] 98022- 0263 Jul, [facility] [id number] [place] [address] 84483- 6742 Jul, [facility] [id number] [place] [address] 12084- 0271 Jul, Arthritis M19.90 ; Chronic hepatitis C without hepatic coma B18.2 and Left hip pain M25.552 [facility] [id number] [place] [address] 33886- 8093 Jul, Left knee pain M25.562 [facility] [id number] [place] [address] 62815- 4672 Jul, Combined drug dependence excluding opioids, 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 ; Anxiety F41.9 ; Other disorder of impulse control 312.39 and Unspecified episodic mood disorder F39 [facility] [address] [place] [address] 24583- 9627 Jul, Left knee pain M25.562 [facility] [address] [place] [address] 05001- 4014 Jul, Left knee pain M25.562 and Left hip pain M25.552 [facility] [address] [place] [address] 43703- 8714 Jul, [facility] [id number] [place] [address] 60691- 2838 June, [facility] [id number] [place] [address] 00600- 6064 June, Combinations of drug dependence excluding opioid type drug, unspecified abuse 304.80 ; Other disorder of impulse control 312.39 ; Unspecified episodic mood disorder F39 and Anxiety F41.9 [facility] [id number] [address]- 1880 June, Other fatigue R53.83 ; Headache R51 and Left knee pain M25.562 [facility] [id number] [place] [address] 13591- 5215 June, Unspecified episodic mood disorder F39 ; Combinations of drug dependence excluding opioid type drug, unspecified abuse 304.80 ; Other disorder of impulse control 312.39 and Anxiety F41.9 [facility] [id number] [place] [address] 45705- 2530 June, Anxiety F41.9 [facility] [id number] [place] [address] 90639- 3217 June, Pain in left knee M25.562 [facility] [id number] [place] [address] 61831- 9894 June, Anxiety F41.9 and Combinations of drug dependence excluding opioid type drug, unspecified abuse 304.80 [facility] [address] [place] [address] 89903- 4407 June, Unspecified episodic mood disorder 296.90 ; Combinations of drug dependence excluding opioid type drug, unspecified abuse 304.80 and Other disorder of impulse control 312.39 [facility] [address] [address]- 4700 June, Anxiety F41.9 and Unspecified episodic mood disorder 296.90 [facility] [id number] [place] [address] 62483- 7080 May, Arthritis M19.90 [facility] [address] [place] [address] 15768- 1712 May, Arthritis M19.90 [facility] [address] [place] [address] 58833- 5629 May, Anxiety F41.9 ; Combinations of drug dependence excluding opioid type drug, unspecified abuse 304.80 and Other disorder of impulse control 312.39 [facility] [id number] [address]- 2649 18 May, 2015 Left knee pain M25.562 [facility] [address] [address]- 2711 14 May, 2015 Arthritis M19.90 [facility] [address] [address]- 4605 May, [facility] [id number] [place] [address] 26409- 2922 May, Anxiety F41.9 ; Unspecified episodic mood disorder 296.90 ; Combinations of drug dependence excluding opioid type drug, unspecified abuse 304.80 and Other disorder of impulse control 312.39 [facility] [address] [place] [address] 72732- 5873 May, Left knee pain M25.562 [facility] [address] [place] [address] 85349[address] May, Left knee pain M25.562 ; Combinations of drug dependence excluding opioid type drug, unspecified abuse 304.80 ; Other disorder of impulse control 312.39 ; Fibromyalgia M79.7 ; Hypertension I10 ; Unspecified episodic mood disorder 296.90 and Left hip pain M25.552 [facility] [id number] [address] May, Unspecified episodic mood disorder 296.90 ; Other disorder of impulse control 312.39 ; Combinations of drug dependence excluding opioid type drug, unspecified abuse 304.80 and Anxiety F41.9 [facility] [id number] [address] May, Left knee pain M25.562 ; Combinations of drug dependence excluding opioid type drug, unspecified abuse 304.80 ; Other disorder of impulse control 312.39 ; Fibromyalgia M79.7 ; Hypertension I10 ; Unspecified episodic mood disorder 296.90 and Left hip pain M25.552 [facility] [id number] [address] May, Anxiety F41.9 ; Unspecified episodic mood disorder 296.90 ; Other disorder of impulse control 312.39 and Combinations of drug dependence excluding opioid type drug, unspecified abuse 304.80 [facility] [id number] [place] [address] 30 Apr, 2015 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 and 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, implants and grafts, initial encounter T84.82XA [facility] [id number] [place], [place] [address] 28 Apr, 2015 Anxiety F41.9 ; Unspecified episodic mood disorder 296.90 ; Combinations of drug dependence excluding opioid type drug, unspecified abuse 304.80 and Other disorder of impulse control 312.39 [facility] [id number] [place] [address] 51987- 9821 25 Apr, 2015 Arthritis M19.90 [facility] [id number] [place] [address] 28541- 6938 Apr, Anxiety F41.9 ; Unspecified episodic mood disorder 296.90 ; Combinations of drug dependence excluding opioid type drug, unspecified abuse 304.80 and Other disorder of impulse control 312.39 [facility] [id number] [place] [address] 25162- 5854 17 Apr, 2015 Arthritis M19.90 [facility] [id number] [place] [address] 86746- 5758 15 Apr, 2015 [facility] [id number] [place] [address] 74737- 5208 15 Apr, 2015 [facility] [id number] [place] [address] 17566- 1091 14 Apr, 2015 Unspecified episodic mood disorder 296.90 ; Combinations of drug dependence excluding opioid type drug, unspecified abuse 304.80 ; Other disorder of impulse control 312.39 and Anxiety F41.9 [facility] [id number] [place] [address] 81696 -6995 11 Apr, 2015 Left knee pain M25.562 [facility] [address] [id number] [address] 1670 Apr, [place] [id number] [place] [address] 11860- 2897 Mar, Unspecified episodic mood disorder 296.90 ; Anxiety F41.9 ; Other disorder of impulse control 312.39 and Combinations of drug dependence excluding opioid type drug, unspecified abuse 304.80 [place] [id number] [place] [address] 03461- 2742 Mar, Hyperpigmentation L81.9 [place] [id number] [place] [address] 96117- 7844 Mar, Arthritis M19.90 and Anxiety F41.9 [address] [id number] [place] [address] 73142- 8422 Mar, Unspecified episodic mood disorder F39 ; Combined drug dependence excluding opioids, 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 ; Other disorder of impulse control F63.89 and Anxiety F41.9 [place] [id number] [place] [address] 95461- 5043 12 Mar, 2015 Well woman exam Z01.419 ; Other fatigue R53.83 ; Hot flashes N95.1 ; Depression, unspecified depression type F32.9 and Body mass index (BMI) of 23.0-23.9 in adult Z68.23 [address] [id number] [place] [address] 25718- 5229 11 Mar, 2015 Unspecified episodic mood disorder 296.90 ; Other disorder of impulse control 312.39 and Anxiety F41.[address] [place] [address] 72733- 8510 11 Mar, 2015 Well woman exam Z01.419 [...] of breast Z12.39 and Limited mobility Z74.[address] 6[address]33- 5287 Mar, [place] [address] [address]- 1752 Mar, [address] 86964- 4089 Mar, [address] 96922- 1809 Mar, Other specified complication of internal orthopedic prosthetic devices, implants and grafts, initial encounter T84.89XA ; Fibromyalgia M79.7 ; Hypertension I10 ; Anemia D64.9 ; Insomnia G47.00 ; Anxiety F41.9 ; Arthritis M19.90 and Migraine G43.[address] 47999- 1217 Mar, [place] [id number] [place] [address] 40073- 8774 Feb, [address] 00121- 4587 Feb, Arthritis M19.90 and Anxiety F41.[address] 88036- 4932 Feb, [address] 77199- 6921 Feb, [place] [address] 58228- 6121 Feb, [address] [place] [address] 3221 Feb, [facility] [address] [place] [address] 6597 Feb, Anxiety F41.9 [facility] [id number] [place] [address]- 5793 15 Feb, 2015 [facility] [id number] [place] [address] 04064- 0387 Feb, [facility] [id number] [address] 6430 Feb, 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 and Fibromyalgia M79.7 [facility] [address] [place] [address]- 9347 Feb, [facility] [id number] [place] [address] 23022- 4441 Jan, [facility] [id number] [address]- 4808 Jan, [facility] [id number] [address]- 4106 Jan, [facility] [address] [place] [address]- 3099 24 Jan, 2015 [facility] [address] [address]- 2745 16 Jan, 2015 [facility] [id number] [address]- 5799 08 Jan, 2015 [facility] [address] [place] [address]- 5047 07 Jan, 2015 [facility] [id number] [address]- 6585 07 Jan, 2015 [facility] [address] [place] [address]- 1812 Dec, [facility] [id number] [address]- 1186 17 Dec, 2014 Left knee pain M25.562 [facility] [id number] [place] [address] 13515- 8882 17 Dec, 2014 Left knee pain M25.562 [facility] [id number] [place] [address] 69819- 9972 16 Dec, 2014 Fibromyalgia M79.7 ; Hypertension I10 and Arthritis M19.90 [facility] [id number] [place] [address] 22573- 9854 Dec, [facility] [id number] [place] [address] 48168- 4529 Dec, [facility] [id number] [place] [address] 75712- 4307 Dec, [facility] [id number] [place] [address] 44098- 7492 Dec, [facility] [id number] [place] [address] 29167- 1170 Nov, [facility] [id number] [place] [address] 40345- 0103 Nov, [facility] [id number] [address]- 6417 Nov, [facility] [id number] [place] [address] 96497- 9560 Nov, Hypertension I10 [facility] [id number] [address]- 4973 23 Oct, 2014 [facility] [id number] [place] [address] 42349- 8298 17 Oct, 2014 [facility] [address] [address]- 4585 Oct, 2014 [facility] [id number] [place] [address] 71922- 9535 Oct, [facility] [address] [id number] [place] [address]- 2320 Oct, [facility] [place] [facility] [address] [id number] [place] [address]- 5023 Sep, [facility] [place] [facility] [address] [id number] [place] 4966 Sep, [facility] [place] [facility] [address] [id number] [place] [address]- 2906 Sep, Hip pain associated with recalled total hip arthroplasty hardware 996.77 [facility] [place] [facility] [address] [id number] [place] [address]- 2304 Sep, [facility] [place] [facility] [address] [id number] [place] [address]- 1478 Sep, [facility] [place] [facility] [address] [id number] [place] 7282 Sep, [facility] [place] [facility] [address] [id number] [place] [address]- 9812 Aug, [facility] [place] [facility] [address] [id number] [place] [address]- 5488 Jul, [facility] [place] [facility] [address] [facility] [id number] [place] [address]- 8255 June, [facility] [place] [facility] [address] [id number] [place] [address]- 9044 June, [facility] [place] [facility] [address] [id number] [place] [address]- 8155 June, [facility] [place] [facility] [address] [id number] [place] [address]- 8119 June, [facility] [place] [facility] [address] [id number] [place] [address]- 2566 June, [facility] [place] [facility] [address] [id number] [place] [address]- 4272 June, [facility] [place] [facility] [address] [id number] [place] [address]- 6557 30 May, 2014 [facility] [place] [facility] [address] [id number] [place] [address]- 9151 14 May, 2014 [facility] [place] [facility] [address] [id number] [place] [address]- 9476 May, [facility] [place] [facility] [address] [id number] [place] [address]- 2143 30 Apr, 2014 [facility] [place] [facility] [address] [id number] [place] [address]- 6231 30 Apr, 2014 [facility] [place] [facility] [address] [id number] [place] [address]- 4524 Apr, [facility] [place] [facility] [address] [id number] [place] [address]- 9361 Apr, [facility] [place] [facility] [address] [id number] [place] [address]- 9598 Apr, [facility] [place] [facility] [address] [id number] [place] [address]- 9254 Apr, [facility] [place] [facility] [address] [id number] [place] [address]- 1809 Apr, [facility] [place] [facility] [address] [id number] [place] [address]- 4782 Apr, [facility] [place] [facility] [address] [id number] [place] [address]- 5486 Apr, [facility] [place] [facility] [address] [id number] [place] [address]- 1297 Apr, [facility] [place] [facility] [address] [id number] [place] [address]- 3046 Apr, [facility] [place] [facility] [address] [id number] [place] [address]- 5513 Mar, [facility] [place] [facility] [address] [id number] [place] [address]- 9297 Mar, 2014 [facility] [place] [facility] [address] [id number] [place] [address]- 2719 16 Mar, 2014 [facility] [place] [facility] [address] [id number] [place] 2259 16 Mar, 2014 [facility] [place] [facility] [address] [id number] [place] [address]- 7493 10 Mar, 2014 [facility] [place] [facility] [address] [id number] [place] [address]- 6759 Mar, [facility] [place] [facility] [address] [id number] [place] [address]- 5677 Feb, [facility] [place] [facility] [address] [id number] [place] [address]- 5546 Feb, [facility] [place] [facility] [address] [id number] [place] [address]- 6772 Feb, [facility] [place] [facility] [address] [id number] [place] [address]- 8995 Feb, [facility] [place] [facility] [address] [id number] [place] [address]- 7931 Jan, [facility] [place] [facility] [address] [facility] [id number] [place] [address]- 4935 Jan, [facility] [place] [facility] [address] [id number] [place] [address]- 7026 Jan, [facility] [place] [facility] [address] [id number] [place] [address]- 7140 Jan, [facility] [place] [facility] [address] [id number] [place] [address]- 4220 Dec, [facility] [place] [facility] [address] [id number] [place] [address]- 0308 Dec, [facility] [place] [facility] [address] [id number] [place] [address]- 5983 Dec, [facility] [place] [facility] [address] [id number] [place] [address]- 7499 Dec, [facility] [place] [facility] [address] [id number] [place] [address]- 2193 Dec, [facility] [place] [facility] [address] [id number] [place] [address]- 0286 Dec, [facility] [place] [facility] [address] [id number] [place] [address]- 1483 Dec, [facility] [place] [facility] [address] [id number] [place] [address]- 6489 Dec, [facility] [place] [facility] [address] [id number] [place] [address]- 0933 Dec, [facility] [place] [facility] [address] [id number] [place] [address]- 9593 Dec, [facility] [place] [facility] [address] [id number] [place] [address]- 0925 Dec, [facility] [place] [facility] [address] [id number] [place] [address]- 7207 Nov, [facility] [place] [facility] [address] [id number] [place] [address]- 8859 Nov, [facility] [place] [facility] [address] [id number] [place] [address]- 2433 Nov, [facility] [place] [facility] [address] [id number] [place] [address]- 0800 Nov, [facility] [place] [facility] [address] [id number] [place] [address]- 6393 17 Nov, 2013 [facility] [place] [facility] [address] [id number] [place] [address]- 0456 15 Nov, 2013 [facility] [place] [facility] [address] [id number] [place] [address]- 9898 15 Nov, 2013 [facility] [place] [facility] [address] [id number] [place] [address]- 6183 15 Nov, 2013 [facility] [place] [facility] [address] [id number] [place] [address]- 0481 15 Nov, 2013 [facility] [place] [facility] [address] [id number] [place] [address]- 1400 14 Nov, 2013 [facility] [place] [facility] [address] [id number] [place] [address]- 3049 14 Nov, 2013 [facility] [place] [facility] [address] [id number] [place] [address]- 4699 14 Nov, 2013 [facility] [place] [facility] [address] [id number] [place] [address]- 7460 14 Nov, 2013 [facility] [place] [facility] [address] [id number] [place] [address]- 0039 13 Nov, 2013 [facility] [place] [facility] [address] [id number] [place] [address]- 9486 13 Nov, 2013 [facility] [place] [facility] [address] [id number] [address]- 4709 11 Nov, 2013 [facility] [place] [facility] [address] [id number] [place] [address]- 3293 11 Nov, 2013 [facility] [place] [facility] [address] [id number] [address]- 4902 07 Nov, 2013 [facility] [place] [facility] [address] [id number] [address]- 4098 07 Nov, 2013 [facility] [place] [facility] [address] [id number] [address]- 3288 07 Nov, 2013 [facility] [place] [facility] [address] [id number] [place] [address]- 8405 07 Nov, 2013 [facility] [place] [facility] [address] [id number] [address]- 6799 30 Oct, 2013 [facility] [place] [facility] [address] [id number] [place] [address]- 4627 30 Oct, 2013 [facility] [place] [facility] [address] [id number] [place] [address]- 5323 26 Oct, 2013 [facility] [place] [facility] [address] [id number] [place] [address] 2546 26 Oct, 2013 [facility] [place] [facility] [address] [id number] [place] [address] 2546 22 Oct, 2013 [facility] [place] [facility] [address] [id number] [place] [address]- 3151 22 Oct, 2013 [facility] [place] [facility] [address] [id number] [place] [address] 2548 18 Oct, 2013 [facility] [place] [facility] [address] [id number] [place] [address]- 3452 18 Oct, 2013 [facility] [place] [facility] [address] [id number] [place] [address]- 6761 18 Oct, 2013 [facility] [place] [facility] [address] [id number] [place] [address]- 7794 18 Oct, 2013 [facility] [place] [facility] [address] [id number] [place] [address]- 5447 12 Oct, 2013 [facility] [place] [facility] [address] [id number] [place] [address] 2540 Oct, 2013 [facility] [place] [facility] [address] [id number] [place] [address]- 4008 Oct, 2013 [facility] [place] [facility] [address] [id number] [place] [address] 2540 Oct, 2013 [facility] [place] [facility] [address] [id number] [place] [address]- 8500 Sep, [facility] [place] [facility] [address] [id number] [place] [address]- 8614 Sep, [facility] [place] [facility] [address] [id number] [place] [address]- 0515 Sep, [facility] [place] [facility] [address] [id number] [place] [address]- 8260 Sep, [facility] [place] [facility] [address] [id number] [place] [address]- 1108 Sep, [facility] [place] [facility] [address] [id number] [place] [address]- 7864 Sep, [facility] [place] [facility] [address] [id number] [place] [address]- 7187 Sep, [facility] [place] [facility] [address] [id number] [place] [address]- 5091 Sep, [facility] [place] [facility] [address] [id number] [place] [address]- 2706 Sep, [facility] [place] [facility] [address] [id number] [place] [address]- 0857 Sep, [facility] [place] [facility] [address] [id number] [place] [address]- 5961 Sep, [facility] [place] [facility] [address] [id number] [place] [address]- 0898 Sep, [facility] [place] [facility] [address] [id number] [place] [address]- 4842 Sep, [facility] [place] [facility] [address] [id number] [place] [address]- 9525 Sep, [facility] [place] [facility] [address] [id number] [place] [address]- 0902 Sep, [facility] [place] [facility] [address] [id number] [place] [address]- 2842 Sep, [facility] [place] [facility] [address] [id number] [place] [address]- 9258 Sep, [facility] [place] [facility] [address] [id number] [place] [address]- 8967 Sep, [facility] [place] [facility] [address] [id number] [place] [address]- 7630 Aug, [facility] [place] [facility] [address] [id number] [place] [address]- 3618 Aug, [facility] [place] [facility] [address] [id number] [place] [address]- 2483 Aug, [facility] [place] [facility] [address] [id number] [place] [address]- 8746 Aug, [facility] [place] [facility] [address] [id number] [place] [address]- 5094 Aug, [facility] [place] [facility] [address] [id number] [place] [address]- 3446 Aug, [facility] [place] [facility] [address] [id number] [place] [address]- 2823 Jul, [facility] [place] [facility] [address] [id number] [place] [address]- 9863 Jul, [facility] [place] [facility] [address] [id number] [place] [address]- 1826 Jul, [facility] [place] [facility] [address] [id number] [place] [address]- 4582 Jul, [facility] [place] [facility] [address] [id number] [place] [address]- 9917 June, [facility] [place] [facility] [address] [id number] [place] [address]- 9927 June, [facility] [place] [facility] [address] [id number] [place] [address]- 0547 June, [facility] [place] [facility] [address] [id number] [place] [address]- 7057 June, [facility] [place] [facility] [address] [id number] [place] [address]- 6604 June, [facility] [place] [facility] [address] [id number] [place] [address]- 4864 June, [facility] [place] [facility] [address] [id number] [place] [address]- 7806 June, [facility] [place] [facility] [address] [id number] [place] [address]- 6917 29 May, 2013 [facility] [place] [facility] [address] [id number] [place] [address]- 2094 29 May, 2013 [facility] [place] [facility] [address] [id number] [place] [address]- 6716 May, [facility] [place] [facility] [address] [id number] [place] [address]- 3046 May, [facility] [place] [facility] [address] [id number] [place] [address]- 5292 May, [facility] [place] [facility] [address] [id number] [place] [address] May, [facility] [place] [facility] [address] [id number] [place] [address] 31 Apr, 2013 [facility] [place] [facility] [address] [id number] [place] [address] 31 Apr, 2013 [facility] [place] [facility] [address] [id number] [place] [address] 28 Apr, 2013 [facility] [place] [facility] [address] [id number] [place] [address] 28 Apr, 2013 [facility] [place] [facility] [address] [id number] [place] [address] 14 Apr, 2013 [facility] [place] [facility] [address] [id number] [place] [address] 14 Apr, 2013 [facility] [place] [facility] [address] [id number] [place] [address] 12 Apr, 2013 [facility] [place] [facility] [address] [id number] [place] [address] 12 Apr, 2013 [facility] [place] [facility] [address] [id number] [place] [address] 10 Apr, 2013 [facility] [place] [facility] [address] [id number] [place] [address] Apr, [facility] [place] [facility] [address] [id number] [place] [address] Apr, [facility] [place] [facility] [address] [id number] [place] [address] Apr, [facility] [place] [facility] [address] [id number] [place] [address] Apr, [facility] [place] [facility] [address] [id number] [place] [address] Apr, [facility] [place] [facility] [address] [id number] [place] [address] Mar, [facility] [place] [facility] [address] [id number] [place] [address] Mar, [facility] [place] [facility] [address] [id number] [place] [address] Mar, [facility] [place] [facility] [address] [id number] [place] [address] Feb, [facility] [place] [facility] [address] [id number] [place] [address] Feb, [facility] [place] [facility] [address] [id number] [place] [address] Feb, [facility] [place] [facility] [address] [id number] [place] [address] Feb, [facility] [place] [facility] [address] [id number] [place] [address] Feb, [facility] [place] [facility] [address] [id number] [place] [address] Feb, [facility] [place] [facility] [address] [id number] [place] [address] Feb, [facility] [place] [facility] [address] [id number] [place] [address] Feb, [facility] [place] [facility] [address] [id number] [place] [address] Feb, [facility] [address] [id number] [place] [address] Feb, [facility] [address] [id number] [place] [address] Jan, [facility] [address] [id number] [place] [address] Jan, [facility] [address] [id number] [place] [address] Jan, [facility] [address] [id number] [place] [address] 76[address] Jan, [facility] [address] [id number] [place] [address] Jan, [facility] [address] [id number] [place] [address] Jan, [facility] [address] [id number] [place] [address] Jan, [facility] [address] [id number] [place] [address] Jan, [facility] [address] [id number] [place] [address] Jan, [facility] [address] [id number] [place] [address] Jan, [facility] [address] [id number] [place] [address] 17 Jan, 2013 [facility] [place] [facility] [address] [id number] [place] [address] 17 Jan, 2013 [facility] [place] [facility] [address] [id number] [place] [address] 16 Jan, 2013 [facility] [address] [id number] [place] [address] Jan, [facility] [place] [facility] [address] [id number] [place] [address] Jan, [facility] [address] [id number] [place] [address]- [address] Jan, [facility] [address] [id number] [place] [address] Jan, [facility] [address] [id number] [place] [address] Jan, [facility] [address] [id number] [place] [address]- [address] Jan, [facility] [address] [id number] [place] [address]- 1614 Jan, [facility] [address] [id number] [place] [address] Jan, [facility] [address] [id number] [place] [address]- [address] Dec, [facility] [address] [id number] [place] [address] Dec, [facility] [address] [id number] [place] [address] Dec, [facility] [place] [facility] [address] [id number] [place] [address] Dec, [facility] [place] [facility] [address] [id number] [address] Dec, [facility] [place] [facility] [address] [id number] [place] [address] 2316 Dec, [facility] [place] [facility] [address] [id number] [place] [address] Dec, [facility] [place] [facility] [address] [id number] [place] [address] 9253 Dec, [facility] [place] [facility] [address] [id number] [address] Dec, [facility] [place] [facility] [address] [id number] [place] [address] 4417 Dec, [facility] [place] [facility] [address] [id number] [place] [address] 1520 Nov, [facility] [place] [facility] [address] [id number] [place] [address]- 6361 Nov, [facility] [place] [facility] [address] [id number] [place] [address] 6718 Nov, [facility] [place] [facility] [address] [id number] [place] [address]- 7419 Nov, [facility] [place] [facility] [address] [id number] [place] [address]- 3607 Nov, [facility] [place] [facility] [address] [id number] [address] Nov, [facility] [place] [facility] [address] [id number] [place] [address] 9749 Nov, [facility] [place] [facility] [address] [id number] [address]65 Nov, [facility] [place] [facility] [address] [id number] [address]- 44[address] Nov, [facility] [place] [facility] [address] [id number], [place] [address] 6731 Nov, [facility] [place] [facility] [address] [id number] [address] 26 Oct, 2012 [facility] [place] [facility] [address] [id number] [place] [address]- 7468 Oct, [facility] [place] [facility] [address] [id number] [place] [address]- 4426 Oct, [facility] [place] [facility] [address] [id number] [place] [address]- 9813 25 Oct, 2012 [facility] [place] [facility] [address] [id number] [place] [address]- 2546 Oct, [facility] [address] [id number] [place] [address] 1846 Sep, [facility] [address] [id number] [place] [address] 25[address] Sep, [facility] [address] [id number] [place] [address]- 8041 Aug, [facility] [address] [id number] [place] [address]- 1509 Aug, [facility] [address] [id number] [place] [address]- 8435 Aug, [facility] [address] [id number] [place] [address] 1190 Aug, [facility] [address] [id number] [place] [address]- 2960 Aug, [facility] [address] [id number] [place] [address]- 3316 Aug, [facility] [address] [id number] [place] [address]- 1611 Aug, [facility] [address] [id number] [place] [address]- 7479 Jul, [facility] [address] [id number] [place] [address]- 8151 Jul, [facility] [address] [id number] [place] [address]- 6892 June, [facility] [place] [facility] [address] [id number] [place] [address]- 1412 June, [facility] [address] [id number] [place] [address]- 8206 June, [facility] [address] [id number] [place] [address]- 0198 June, [facility] [address] [id number] [place] [address]- 0962 June, [facility] [address] [id number] [place] [address]- 3239 June, [facility] [address] [id number] [place] [address]- 7145 June, [facility] [address] [id number] [place] [address]- 6893 June, [facility] [address] [id number] [place] [address]- 8467 June, [facility] [address] [id number] [place] [address]- 4841 June, [facility] [address] [id number] [place] [address]- 3420 June, [facility] [address] [id number] [place] [address]- 6532 May, [facility] [address] [id number] [place] [address]- 9864 May, [facility] [address] [id number] [place] [address]- 5794 May, [facility] [address] [id number] [place] [address]- 7394 May, [facility] [place] [facility] [address] [id number] [place] [address]- 1848 Apr, [facility] [place] [facility] [address] [id number] [place] [address]- 2461 Apr, [facility] [place] [facility] [address] [id number] [place] [address]- 6699 Apr, [facility] [place] [facility] [address] [id number] [place] [address]- 9529 Mar, [facility] [place] [facility] [address] [id number] [place] [address]- 0374 11 Mar, 2012 [facility] [address] [id number] [place] [address]- 6375 29 Feb, 2012 [facility] [address] [id number] [place] [address]- 6928 Feb, [facility] [address] [id number] [place] [address]- 3946 Feb, [facility] [place] [facility] [address] [id number] [place] [address]- 2071 Feb, [facility] [address] [id number] [place] [address]- 4867 16 Feb, 2012 [facility] [address] [id number] [place] [address]- 6433 Feb, [facility] [address] [id number] [place] [address]- 3578 Feb, [facility] [address] [id number] [place] [address]- 7318 31 Jan, 2012 [facility] [address] [id number] [place] [address]- 1754 31 Jan, 2012 [facility] [address] [id number] [place] [address]- 0168 Jan, [facility] [address] [id number] [place] [address]- 6586 17 Jan, 2012 [facility] [place] [facility] [address] [id number] [place] [address]- 2547 17 Jan, 2012 [facility] [place] [facility] [address] [id number] [place] [address]- 3688 Jan, [facility] [place] [facility] [address] [id number] [place] [address]- 4092 Jan, [facility] [address] [id number] [place] [address]- 7644 10 Jan, 2012 [facility] [place] [facility] [address] [id number] [place] [address]- 8010 Jan, [facility] [place] [facility] [address] [id number] [place] [address]- 0240 Jan, [facility] [place] [facility] [address] [id number] [place] [address]- 9422 Jan, [facility] [place] [facility] [address] [id number] [place] [address]- 6273 Dec, [facility] [place] [facility] [address] [id number] [place] [address]- 8722 Dec, [facility] [place] [facility] [address] [id number] [place] [address]- 9581 Dec, [facility] [place] [facility] [address] [id number] [place] [address]- 7627 Dec, [facility] [place] [facility] [address] [id number] [place] [address]- 6637 Nov, [facility] [place] [facility] [address] [id number] [place] [address]- 8746 Nov, [facility] [place] [facility] [address] [id number] [place] [address]- 5496 Nov, [facility] [place] [facility] [address] [id number] [place] [address]- 3175 27 Oct, 2011 [facility] [place] [facility] [address] [id number] [place] [address]- 7279 24 Sep2011 [facility] [place] [facility] [address] [id number] [place] [address]- 3063 21 Sep2011 [facility] [place] [facility] [address] [id number] [place] [address]- 7727 10 Oct, 2011 [facility] [place] [facility] [address] [id number] [place] [address]- 9621 07 Sep2011 [facility] [place] [facility] [address] [id number] [place] [address]- 2006 Oct, [facility] [place] [facility] [address] [id number] [place] [address]- 9878 Oct, [facility] [place] [facility] [address] [id number] [place] [address]- 5057 Sep, [facility] [place] [facility] [address] [id number] [place] [address]- 4846 Sep, [facility] [place] [facility] [address] [id number] [place] [address]- 4672 Sep, [facility] [place] [facility] [address] [id number] [place] [address]- 3051 Sep, [facility] [place] [facility] [address] [id number] [place] [address]- 6231 Sep, [facility] [place] [facility] [address] [id number] [place] [address]- 2840 Aug, [facility] [place] [facility] [address] [id number] [place] [address]- 4383 Aug, [facility] [place] [facility] [address] [id number] [place] [address]- 1122 Aug, [facility] [place] [facility] [address] [id number] [place] [address]- 6113 Aug, [facility] [place] [facility] [address] [id number] [place] [address]- 0147 Aug, [facility] [place] [facility] [address] [id number] [place] [address]- 9719 Aug, [facility] [place] [facility] [address] [id number] [place] [address]- 9320 Aug, [facility] [place] [facility] [address] [id number] [place] [address]- 5770 Jul, [facility] [place] [facility] [address] [id number] [place] [address]- 3985 Jul, [facility] [place] [facility] [address] [id number] [place] [address]- 9633 Jul, [facility] [address] [id number] [place] [address]- 2637 Jul, [facility] [address] [id number] [place] [address]- 7458 Jul, [facility] [address] [id number] [place] [address]- 5372 Jul, [facility] [address] [id number] [place] [address]- 7960 07 Jul, 2011 [facility] [address] [id number] [place] [address]- 2731 Jul, [facility] [address] [id number] [place] [address]- 3897 Jul, [facility] [address] [id number] [place] [address]- 7174 June, [facility] [address] [id number] [place] [address]- 2676 June, [facility] [address] [id number] [place] [address]- 5204 June, [facility] [address] [id number] [place] [address]- 7553 June, [facility] [address] [id number] [place] [address]- 7380 June, [facility] [address] [id number] [place] [address]- 3502 June, [facility] [place] [facility] [address] [id number] [place] [address]- 7715 June, [facility] [place] [facility] [address] [id number] [place] [address]- 3736 June, [facility] [address] [id number] [place] [address]- 3894 May, [facility] [address] [id number] [place] [address]- 0443 May, [facility] [place] [facility] [address] [id number] [place] [address]- 7546 May, [facility] [place] [facility] [address] [id number] [place] [address]- 3466 May, [facility] [place] [facility] [address] [id number] [place] [address]- 5406 May, [facility] [place] [facility] [address] [id number] [place] [address]- 5615 May, [facility] [place] [facility] [address] [id number] [place] [address]- 9666 May, [facility] [place] [facility] [address] [id number] [place] [address]- 2104 Apr, [facility] [place] [facility] [address] [id number] [place] [address]- 4098 Apr, [facility] [place] [facility] [address] [id number] [place] [address]- 3194 Apr, [facility] [place] [facility] [address] [id number] [place] [address]- 4743 Apr, [facility] [place] [facility] [address] [id number] [place] [address]- 4817 Apr, [facility] [place] [facility] [address] [id number] [place] [address]- 2646 Apr, [facility] [place] [facility] [address] [id number] [place] [address]- 7216 Apr, [facility] [place] [facility] [address] [id number] [place] [address]- 7106 Mar, [facility] [place] [facility] [address] [id number] [place] [address]- 7116 Mar, [facility] [place] [facility] [address] [id number] [place] [address]- 6102 14 Mar, 2011 [facility] [address] [id number] [place] [address]- 1876 13 Mar, 2011 [facility] [address] [id number] [place] [address]- 6616 09 Mar, 2011 [facility] [address] [id number] [place] [address]- 6726 Mar, [facility] [address] [id number] [place] [address] 2544 Mar, [facility] [address] [id number] [place] [address]- 0421 Feb, [facility] [address] [id number] [place] [address]- 3273 Feb, [facility] [address] [id number] [place] [address]- 3231 Feb, [facility] [address] [id number] [place] [address]- 3074 Feb, [facility] [address] [id number] [place] [address]- 2079 Feb, [facility] [address] [id number] [place] [address]- 6437 Feb, [facility] [address] [id number] [place] [address]- 1098 Feb, [facility] [address] [id number] [place] [address]- 0327 Feb, [facility] [address] [id number] [place] [address]- 7917 Feb, [facility] [address] [id number] [place] [address]- 9416 Feb, [facility] [address] [id number] [place] [address]- 7132 Jan, [facility] [place] [facility] [address] [id number] [place] [address]- 6515 Jan, [facility] [place] [facility] [address] [id number] [place] [address]- 5726 Jan, [facility] [place] [facility] [address] [id number] [place]35 Jan, [facility] [place] [facility] [address] [id number] [place] [address]- 6086 Jan, [facility] [place] [facility] [address] [id number] [place] [address]- 4271 Jan, [facility] [place] [facility] [address] [id number] [place] [address]- 7194 Jan, [facility] [place] [facility] [address] [id number] [place] [address]- 6898 Jan, [facility] [place] [facility] [address] [id number] [place] [address]- 7467 Jan, [facility] [place] [facility] [address] [id number] [place] [address]- 5878 Jan, [facility] [place] [facility] [address] [id number] [place] [address]- 6697 Jan, [facility] [place] [facility] [address] [id number] [place] [address]- 4690 17 Dec, 2010 [facility] [place] [facility] [address] [id number] [address]- 2079 17 Dec, 2010 [facility] [place] [facility] [address] [id number] [place] [address]- 2307 17 Dec, 2010 [facility] [place] [facility] [address] [id number] [place] [address]- 5595 16 Dec, 2010 [facility] [place] [facility] [address] [id number] [place] 4709 14 Dec, 2010 [facility] [place] [facility] [address] [id number], [place] [address]- 2090 Dec, [facility] [place] [facility] [address] [id number] [place] [address]- 0469 Dec, [facility] [place] [facility] [address] [id number] [place] [address]78 Dec, [facility] [place] [facility] [address] [id number] [place] [address]- 6380 Dec, [facility] [place] [facility] [address] [id number] [place] [address]- 1848 Nov, [facility] [place] [facility] [address] [id number] [place] [address]- 7918 Nov, [facility] [place] [facility] [address] [id number] [place] [address]- 9914 Nov, [facility] [place] [facility] [address] [id number] [place] [address]- 7788 Nov, [facility] [place] [facility] [address] [id number] [place] [address]- 8974 24 Nov, 2010 [facility] [place] [facility] [address] [id number] [place] [address]- 8532 Nov, [facility] [place] [facility] [address] [id number] [place] [address]- 3062 Aug, [facility] [place] [facility] [address] [id number], [place] [address]- 4199 Feb, [facility] [place] [facility] [address] [id number] [place] [address]- 7072 14 Jan, 2010 [facility] [place] [facility] [address] [id number] [place] 7747 Jan, [facility] [place] [facility] [address] [id number] [place] [address]- 6089 Jan, [facility] [place] [facility] [address] [id number] [place] [address]365 Jan, [facility] [place] [facility] [address] [id number] [address]- 6486 Jan, [facility] [id number] [address]- 9168 Dec, [facility] [id number], [place] [address] 2546 Dec, [facility] [id number] [address]- 1299 Dec, [facility] [id number] [address]- 1747 Dec, [facility] [id number] [address]- 3627 Nov, [facility] [id number], [place] [address]- 2027 Nov, [facility] [id number], [place] [address]- 4221 Nov, IMMUNIZATIONS No Known Immunizations SOCIAL HISTORY [...]
--- OUTSIDE RECORDS SUMMARY | 2018-01-13 22:00 | XMS REPORT ---
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 Active 733747996 Problem Hypertension I10 Active 24716569 Problem Arthritis M19.90 Active 2182917 Problem 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 Active 69312442 Problem Anxiety F41.9 Active 49597716 Problem Unspecified episodic mood disorder F39 Active 81888504 Problem Left hip pain M25.552 Active 80530989 ALLERGIES No Information ENCOUNTERS Encounter Location Date Diagnosis [facility] [address] [facility] [id number] [address] Nov, [facility] [id number], [place] [address] Oct, [facility] [address] [facility] [id number], [place] [address] Oct, Arthritis M19.90 and Unspecified episodic mood disorder F39 [facility] [address], [place] [address] Sep, Chronic hepatitis C without hepatic coma B18.2 [facility] [id number] [place] [address] 66666- 9770 Sep, Gastroesophageal reflux disease, esophagitis presence not specified K21.9 and Other chronic pain G89.29 [facility] [id number] [place] [address] 27456- 9635 Sep, [facility] [id number] [place] [address] 21483- 9482 Sep, [facility] [id number] [place] [address] 24181- 5628 Sep, Chronic hepatitis C without hepatic coma B18.2 [facility] [id number] [place] [address] 77230- 7218 Sep, 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 [id number] [place] [address] [id number] Aug, [facility] [id number] [place] [address] 10436- 6753 Aug, Arthritis M19.90 [facility] [id number] [place] [address] 37868- 7403 Aug, [facility] [address], [place] [address] 1644 Aug, Obesity (BMI 30.0-34.9) E66.9 ; Unspecified episodic mood disorder F39 and Hypertension I10 [facility] [id number], [place] [address] Aug, Unspecified episodic mood disorder F39 [facility] [id number] [place] [address] 69199- 1299 Aug, [facility] [id number] [place] [address] 80327- 1434 Jul, Unspecified episodic mood disorder F39 [facility] [id number] [place] [address] 31406- 2048 Jul, [facility] [id number] [place] [address] 37755- 7904 Jul, Arthritis M19.90 [facility] [id number] [place] [address] 03874- 3089 Jul, Left hip pain M25.552 ; Hypertension I10 ; Other obesity due to excess calories E66.09 and Body mass index (BMI) of 34.0-34.9 in adult Z68.34 [facility] [address], [place] [address] Jul, Unspecified episodic mood disorder F39 [facility] [id number] [place] [address] 72499- 7084 June, Gastroesophageal reflux disease, esophagitis presence not specified K21.9 [facility] [id number] [place] [address] 29961- 8477 June, [facility] [id number] [place] [address] 95181- 3761 June, [facility] [id number] [place] [address] 62003- 1051 June, Arthritis M19.90 [facility] [address], [place] [address] 5708 June, [facility] [id number] [place] [address] 12354- 6408 June, [facility] [address] [place] [address] 53460- 7643 June, Unspecified episodic mood disorder F39 [facility] [id number] [place] [address] 32795- 3458 May, Unspecified episodic mood disorder F39 [facility] [id number] [place] [address] 50093- 4297 May, [facility] [id number] [place] [address] 23047- 3689 May, Arthritis M19.90 [facility] [id number] [place] [address] 34558 -2305 May, Dysuria R30.0 ; Abscess L02.91 and Acute cystitis without hematuria N30.00 [facility] [address] [place] [address] 44584- 3598 May, Other disorder of impulse control F63.89 ; Unspecified episodic mood disorder F39 ; Combined drug dependence excluding opioids, 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 ; Anxiety F41.9 and Other psychoactive substance dependence, 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 [facility] [address], [place] [address] 82[address] May, [facility] [address] [place] [address] 87029- 8761 May, 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 ; Unspecified episodic mood disorder F39 ; Combined drug dependence excluding opioids, 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 ; Other psychoactive substance dependence, 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 and Anxiety F41.9 [facility] [address], [place] [address]- 8[address] May, Other chronic pain G89.29 ; Left hip pain M25.552 ; Hypertension I10 ; 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, 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 and Unspecified episodic mood disorder F39 [facility] [id number] [place] [address] 40270- 5701 28 Apr, 2017 [facility] [address] [place] [address] 21040 -7676 Apr, Neck pain M54.2 ; Left hip pain M25.552 and Fall, initial encounter W19.XXXA [facility] [id number] [place] [address] 67635- 2431 Apr, Unspecified episodic mood disorder F39 ; Combined drug dependence excluding opioids, 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 ; Anxiety F41.9 ; Other psychoactive substance dependence, 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 and Other disorder of impulse control F63.89 [facility] [id number] [place] [address] 99561- 8463 Apr, [facility] [id number] [place] [address] 06233- 8161 Apr, Arthritis M19.90 and Unspecified episodic mood disorder F39 [facility] [id number] [place] [address] 41290- 6119 Apr, Unspecified episodic mood disorder F39 [facility] [address], [place] [address]- 0831 Apr, [facility] [id number] [place] [address] 64544- 1580 08 Apr, 2017 [facility] [address] [place] [address] 79224- 8797 Apr, Unspecified episodic mood disorder F39 ; Combined drug dependence excluding opioids, 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 ; Anxiety F41.9 ; Other psychoactive substance dependence, 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 and Other disorder of impulse control F63.89 [facility] [address] [place] [address] 78704- 5798 Mar, Unspecified episodic mood disorder F39 [facility] [address], [place] [address]- 0366 Mar, Gastroesophageal reflux disease, esophagitis presence not specified K21.9 [facility] [address], [place] [address]- 1786 Mar, Arthritis M19.90 and Unspecified episodic mood disorder F39 [facility] [id number] [place] [address] 30237 2546 Feb, [facility] [address] [place] [address] 10660 2546 Feb, [facility] [id number] [place] [address] 09575- 5536 Feb, [facility] [id number] [place] [address] 10969- 4116 Feb, Arthritis M19.90 [facility] [id number] [place] [address] 66760 2544 Feb, Non-pressure chronic ulcer of right calf, 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 ; Unspecified episodic mood disorder F39 and Left hip pain M25.552 [facility] [address], [place] [address]- 2356 Feb, [facility] [address] [place] [address] 03912- 7206 Feb, [facility] [address] [place] [address] 53380 2545 Jan, Arthritis M19.90 [facility] [id number] [place] [address] 32270 2546 Jan, Left hip pain M25.552 and Non-pressure chronic ulcer of right calf, 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 [facility] [address], [place] [address]- 8786 Jan, Chronic hepatitis C without hepatic coma B18.2 [facility] [address] [place] [address] 26530- 2544 Jan, Encounter for immunization Z23 ; Venous insufficiency ( chronic) (peripheral) I87.2 ; Non-pressure chronic ulcer of unspecified calf limited to breakdown of skin L97.201 and Gastroesophageal reflux disease, esophagitis presence not specified K21.9 [facility] [id number] [place] [address] 85375- 8636 Jan, [facility] [id number] [place] [address] 38178- 2542 Jan, Chronic hepatitis C without hepatic coma B18.2 and Encounter for immunization Z23 [facility] [id number] [place] [address] 04725- 4376 Jan, Arthritis M19.90 [facility] [id number] [place] [address] 28472- 3696 Jan, [facility] [id number] [place] [address] 51627- 6316 Dec, [facility] [id number] [place] [address] 97979- 6918 Dec, Unspecified episodic mood disorder F39 [facility] [id number] [place] [address] 74436- 2546 Dec, Arthritis M19.90 [facility] [id number] [place] [address] 21174 2546 Dec, Arthritis M19.90 [facility] [id number] [place] [address] 57144- 2549 Nov, [facility] [id number] [place] [address] 07419- 2546 Nov, [facility] [id number] [place] [address] 95859- 2546 Nov, Other psychoactive substance dependence, 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 ; 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, 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 and Chronic hepatitis C without hepatic coma B18.2 [facility] [address] [place] [address] 43379- 1613 Nov, Arthritis M19.90 [facility] [address] [place] [address] 54087 -6486 Oct, Partial thickness burn of abdomen, initial encounter T21.22XA [facility] [id number] [place] [address] 23517- 2344 Oct, [facility] [id number] [place] [address] 03257- 2861 Sep, Arthritis M19.90 [facility] [id number] [place] [address] 09219- 3147 Sep, [facility] [id number] [place] [address] 33117- 7811 Sep, [facility] [id number] [place] [address] 33714- 3035 Sep, Unspecified episodic mood disorder F39 ; Chronic hepatitis C without hepatic coma B18.2 and Left hip pain M25.552 [facility] [id number] [place] [address] 69353- 0009 Sep, Arthritis M19.90 and Left hip pain M25.552 [facility] [id number] [place] [address] 09632- 8245 Aug, [facility] [id number] [place] [address] 76272- 5909 Aug, [facility] [id number] [place] [address] 73040- 6499 Aug, Chronic hepatitis C without hepatic coma B18.2 [facility] [id number] [place] [address] 77528- 1992 Aug, [facility] [id number] [place] [address] 05508- 5246 Aug, Chronic hepatitis C without hepatic coma B18.2 [facility] [address] [place] [address] 08537- 1330 Aug, 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, 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 [facility] [id number] [place] [address] 08358- 4090 Aug, [facility] [id number] [place] [address] 59666- 9125 Aug, Chronic hepatitis C without hepatic coma B18.2 and Hypertension I10 [facility] [id number] [place] [address] 92864- 1273 Jul, [facility] [id number] [place] [address] 11730- 8773 June, [facility] [id number] [place] [address] 27618- 0362 Apr, Fibromyalgia M79.7 ; Left hip pain M25.552 and Decubitus ulcer of sacral region, stage 1 L89.151 [facility] [id number] [place] [address] 14702- 4187 Apr, [facility] [id number] [place] [address] 40916- 9034 Apr, [facility] [id number] [place] [address] 63789- 3081 Feb, [facility] [id number] [place] [address] 99700- 5413 Dec, Anxiety F41.9 ; Combined drug dependence excluding opioids, 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 and Unspecified episodic mood disorder F39 [facility] [id number] [place] [address] 92164- 3650 Dec, [facility] [id number] [place] [address] 94335- 2594 Nov, [facility] [id number] [place] [address] 21115- 0690 Nov, [facility] [id number] [place] [address] 16756- 4708 Nov, Other disorder of impulse control F63.89 and Anxiety F41.9 [facility] [id number] [place] [address] 79042- 9894 21 Oct, 2015 [facility] [id number] [place] [address] 51512 -2170 14 Oct, 2015 Open wound of left thigh, initial encounter S71.102A [facility] [id number] [place] [address] 94915- 0968 Oct, [facility] [id number] [place] [address] 00062- 2659 Sep, Unspecified episodic mood disorder F39 ; Other disorder of impulse control 312.39 ; Combined drug dependence excluding opioids, 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 and Anxiety F41.9 [facility] [address] [place] [address] 75660- 6888 Sep, Other disorder of impulse control 312.39 ; Combined drug dependence excluding opioids, 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 ; Anxiety F41.9 and Unspecified episodic mood disorder F39 [facility] [address] [place] [address] 58517- 8508 Sep, Other chronic pain G89.29 [facility] [id number] [place] [address] 71383- 4723 Sep, [facility] [id number] [place] [address] 71200- 2765 Sep, [facility] [id number] [place] [address] 80238- 6758 Aug, [facility] [address] [place] [address] 89629- 7995 Aug, [facility] [id number] [place] [address] 15146- 6951 Aug, [facility] [address], [place] [address]- 9922 Jul, [facility] [id number] [place] [address] 14415- 7064 Jul, [facility] [address] [place] [address] 13755- 2935 Jul, [facility] [id number] [place] [address] 75888- 2724 Jul, Arthritis M19.90 ; Chronic hepatitis C without hepatic coma B18.2 and Left hip pain M25.552 [facility] [id number] [place] [address] 61273- 2757 Jul, Left knee pain M25.562 [facility] [id number] [place] [address] 55036- 5458 Jul, Combined drug dependence excluding opioids, 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 ; Anxiety F41.9 ; Other disorder of impulse control 312.39 and Unspecified episodic mood disorder F39 [facility] [address] [place] [address] 47437- 9691 Jul, Left knee pain M25.562 [facility] [address] [place] [address] 97402- 3578 Jul, Left knee pain M25.562 and Left hip pain M25.552 [facility] [address] [place] [address] 79220- 5264 Jul, [facility] [address] [place] [address] 74311- 8533 June, [facility] [id number] [place] [address] 58467- 9568 June, Combinations of drug dependence excluding opioid type drug, unspecified abuse 304.80 ; Other disorder of impulse control 312.39 ; Unspecified episodic mood disorder F39 and Anxiety F41.9 [facility] [id number], [place] [address]- 4607 June, Other fatigue R53.83 ; Headache R51 and Left knee pain M25.562 [facility] [id number] [place] [address] 41869- 7002 June, Unspecified episodic mood disorder F39 ; Combinations of drug dependence excluding opioid type drug, unspecified abuse 304.80 ; Other disorder of impulse control 312.39 and Anxiety F41.9 [facility] [id number] [place] [address] 38782- 9676 June, Anxiety F41.9 [facility] [id number] [place] [address] 06467- 6634 June, Pain in left knee M25.562 [facility] [id number] [place] [address] 51458- 4380 June, Anxiety F41.9 and Combinations of drug dependence excluding opioid type drug, unspecified abuse 304.80 [facility] [address] [place] [address] 89584- 7590 June, Unspecified episodic mood disorder 296.90 ; Combinations of drug dependence excluding opioid type drug, unspecified abuse 304.80 and Other disorder of impulse control 312.39 [facility] [address], [place] [address]- 5423 June, Anxiety F41.9 and Unspecified episodic mood disorder 296.90 [facility] [address] [place] [address] 60599- 3982 May, Arthritis M19.90 [facility] [address] [place] [address] 45263- 9325 May, Arthritis M19.90 [facility] [address] [place] [address] 90263- 6862 May, Anxiety F41.9 ; Combinations of drug dependence excluding opioid type drug, unspecified abuse 304.80 and Other disorder of impulse control 312.39 [facility] [id number], [place] [address]- 7150 18 May, 2015 Left knee pain M25.562 [facility] [address], [place] [address]- 6775 14 May, 2015 Arthritis M19.90 [facility] [address], [place] [address]- 4455 May, [facility] [id number] [place] [address] 52241- 5723 May, Anxiety F41.9 ; Unspecified episodic mood disorder 296.90 ; Combinations of drug dependence excluding opioid type drug, unspecified abuse 304.80 and Other disorder of impulse control 312.39 [facility] [address] [place] [address] 59505- 0464 May, Left knee pain M25.562 [facility] [address] [place] [address] 05196- 4246 May, Left knee pain M25.562 ; Combinations of drug dependence excluding opioid type drug, unspecified abuse 304.80 ; Other disorder of impulse control 312.39 ; Fibromyalgia M79.7 ; Hypertension I10 ; Unspecified episodic mood disorder 296.90 and Left hip pain M25.552 [facility] [address], [place] [address]- 9864 May, Unspecified episodic mood disorder 296.90 ; Other disorder of impulse control 312.39 ; Combinations of drug dependence excluding opioid type drug, unspecified abuse 304.80 and Anxiety F41.9 [facility] [address], [place] [address]- 1222 May, Left knee pain M25.562 ; Combinations of drug dependence excluding opioid type drug, unspecified abuse 304.80 ; Other disorder of impulse control 312.39 ; Fibromyalgia M79.7 ; Hypertension I10 ; Unspecified episodic mood disorder 296.90 and Left hip pain M25.552 [facility] [address], [place] [address]- 2533 May, Anxiety F41.9 ; Unspecified episodic mood disorder 296.90 ; Other disorder of impulse control 312.39 and Combinations of drug dependence excluding opioid type drug, unspecified abuse 304.80 [facility] [id number] [place] [id number] 30 Apr, 2015 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 and 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, implants and grafts, initial encounter T84.82XA [facility] [id number] [place], [place] [id number] 28 Apr, 2015 Anxiety F41.9 ; Unspecified episodic mood disorder 296.90 ; Combinations of drug dependence excluding opioid type drug, unspecified abuse 304.80 and Other disorder of impulse control 312.39 [facility] [id number] [place] [address] 25 Apr, 2015 Arthritis M19.90 [facility] [id number] [place] [address] Apr, Anxiety F41.9 ; Unspecified episodic mood disorder 296.90 ; Combinations of drug dependence excluding opioid type drug, unspecified abuse 304.80 and Other disorder of impulse control 312.39 [facility] [id number] [place] [address]- 18[address] 17 Apr, 2015 Arthritis M19.90 [facility] [id number] [place] [address] 15 Apr, 2015 [facility] [id number] [place] [address]- 1406 15 Apr, 2015 [facility] [id number] [place] [address] 25230- 8872 14 Apr, 2015 Unspecified episodic mood disorder 296.90 ; Combinations of drug dependence excluding opioid type drug, unspecified abuse 304.80 ; Other disorder of impulse control 312.39 and Anxiety F41.9 [facility] [id number] [place] [address] 49110 -0966 11 Apr, 2015 Left knee pain M25.562 [facility] [id number], [place] [address] 2814 Apr, [place] [id number] [place] [address] 49595- 6523 Mar, Unspecified episodic mood disorder 296.90 ; Anxiety F41.9 ; Other disorder of impulse control 312.39 and Combinations of drug dependence excluding opioid type drug, unspecified abuse 304.80 [place] [id number] [place] [address] 73814- 1708 Mar, Hyperpigmentation L81.9 [place] [id number] [place] [address] 31508- 5382 Mar, Arthritis M19.90 and Anxiety F41.9 [address] [address] [id number] [place] [address] 03527- 1271 Mar, Unspecified episodic mood disorder F39 ; Combined drug dependence excluding opioids, 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 ; Other disorder of impulse control F63.89 and Anxiety F41.9 [address] [place] [id number] [place] [address] 11795- 1364 12 Mar, 2015 Well woman exam Z01.419 ; Other fatigue R53.83 ; Hot flashes N95.1 ; Depression, unspecified depression type F32.9 and Body mass index (BMI) of 23.0-23.9 in adult Z68.23 [id number] [place] [address] 72785- 8062 11 Mar, 2015 Unspecified episodic mood disorder 296.90 ; Other disorder of impulse control 312.39 and Anxiety F41.[id number] [place] [address] 44175- 3548 11 Mar, 2015 Well woman exam Z01.419 [...] of breast Z12.39 and Limited mobility Z74.[address] 84068- 6120 Mar, [place] [address] 92322- 7103 Mar, [address] 31718- 1864 Mar, [address] 95931- 3114 Mar, Other specified complication of internal orthopedic prosthetic devices, implants and grafts, initial encounter T84.89XA ; Fibromyalgia M79.7 ; Hypertension I10 ; Anemia D64.9 ; Insomnia G47.00 ; Anxiety F41.9 ; Arthritis M19.90 and Migraine G43.[address] 14961- 1371 Mar, [place] [id number] [place] [address] 37767- 2806 Feb, [address] 45870- 5515 Feb, Arthritis M19.90 and Anxiety F41.[address] 89360- 1578 Feb, [address] 34984- 0820 Feb, [place] [address] 88614- 2833 Feb, [address] [address] 9913 Feb, [facility] [address] [address]- 8003 Feb, Anxiety F41.9 [facility] [id number] 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 [address]- 3348 Feb, [facility] [id number] [place] [address] 46535- 2838 Jan, [facility] [address], [place] [address]- 9190 Jan, [facility] [address], [place] [address]- 2743 Jan, [facility] [address] [address]- 8939 24 Jan, 2015 [facility] [address], [place] [address]- 9817 16 Jan, 2015 [facility] [address], [place] [address]- 3018 08 Jan, 2015 [facility] [address] [address]- 0001 07 Jan, 2015 [facility] [address], [place] [address]- 6608 07 Jan, 2015 [facility] [address] [address]- 8844 Dec, [facility] [id number], [place] [address]- 6906 17 Dec, 2014 Left knee pain M25.562 [facility] [id number] [place] [address] 85303- 6113 17 Dec, 2014 Left knee pain M25.562 [facility] [id number] [place] [address] 92381- 2961 16 Dec, 2014 Fibromyalgia M79.7 ; Hypertension I10 and Arthritis M19.90 [facility] [id number] [place] [address] 04066- 2569 Dec, [facility] [id number] [place] [address] 31457- 1888 Dec, [facility] [id number] [place] [address] 67878- 4890 Dec, [facility] [id number] [place] [address] 84131- 4726 Dec, [facility] [id number] [place] [address] 24971- 0259 Nov, [facility] [id number] [place] [address] 80486- 0314 Nov, [facility] [address], [place] [address]- 8309 Nov, [facility] [id number] [place] [address] 72025- 0576 Nov, Hypertension I10 [facility] [address], [place] [address]- 3547 23 Oct, 2014 [facility] [id number] [place] [address] 59156- 1278 17 Oct, 2014 [facility] [address], [place] [address]- 7087 Oct, 2014 [facility] [id number] [place] [address] 89235- 6641 Oct, [facility] [address] [id number] [place] [address]- 0227 Oct, [facility] [place] [facility] [address] [id number] [place] [address]- 8938 Sep, [facility] [place] [facility] [address] [id number] [place] 2678 Sep, [facility] [place] [facility] [address] [id number] [place] [address]- 6088 Sep, Hip pain associated with recalled total hip arthroplasty hardware 996.77 [facility] [place] [facility] [address] [id number] [place] [address]- 8079 Sep, [facility] [place] [facility] [address] [id number] [place] [address]- 2895 Sep, [facility] [place] [facility] [address] [id number] [place] 3712 Sep, [facility] [place] [facility] [address] [id number] [place] [address]- 9208 Aug, [facility] [place] [facility] [address] [id number] [place] [address]- 8992 Jul, [facility] [place] [facility] [address] [facility] [id number] [place] [address]- 9799 June, [facility] [place] [facility] [address] [id number] [place] [address]- 4829 June, [facility] [place] [facility] [address] [id number] [place] [address]- 1145 June, [facility] [place] [facility] [address] [id number] [place] [address]- 0105 June, [facility] [place] [facility] [address] [id number] [place] [address]- 0416 June, [facility] [place] [facility] [address] [id number] [place] [address]- 7828 June, [facility] [place] [facility] [address] [id number] [place] [address]- 9552 30 May, 2014 [facility] [place] [facility] [address] [id number] [place] [address]- 8001 14 May, 2014 [facility] [place] [facility] [address] [id number] [place] [address]- 0176 May, [facility] [place] [facility] [address] [id number] [place] [address]- 6142 30 Apr, 2014 [facility] [place] [facility] [address] [id number] [place] [address]- 4734 30 Apr, 2014 [facility] [place] [facility] [address] [id number] [place] [address]- 9465 Apr, [facility] [place] [facility] [address] [id number] [place] [address]- 2348 Apr, [facility] [place] [facility] [address] [id number] [place] [address]- 3185 Apr, [facility] [place] [facility] [address] [id number] [place] [address]- 5839 Apr, [facility] [place] [facility] [address] [id number] [place] [address]- 1869 Apr, [facility] [place] [facility] [address] [id number] [place] [address]- 7700 Apr, [facility] [place] [facility] [address] [id number] [place] [address]- 3857 Apr, [facility] [place] [facility] [address] [id number] [place] [address]- 2132 Apr, [facility] [place] [facility] [address] [id number] [place] [address]- 7386 Apr, [facility] [place] [facility] [address] [id number] [place] [address]- 6954 Mar, [facility] [place] [facility] [address] [id number] [place] [address]- 8504 Mar, 2014 [facility] [place] [facility] [address] [id number] [place] [address]- 0309 16 Mar, 2014 [facility] [place] [facility] [address] [id number] [place] 1242 16 Mar, 2014 [facility] [place] [facility] [address] [id number] [place] [address]- 3492 10 Mar, 2014 [facility] [place] [facility] [address] [id number] [place] [address]- 4854 Mar, [facility] [place] [facility] [address] [id number] [place] [address]- 6855 Feb, [facility] [place] [facility] [address] [id number] [place] [address]- 9083 Feb, [facility] [place] [facility] [address] [id number] [place] [address]- 8112 Feb, [facility] [place] [facility] [address] [id number] [place] [address]- 8470 Feb, [facility] [place] [facility] [address] [id number] [place] [address]- 4401 Jan, [facility] [place] [facility] [address] [facility] [id number] [place] [address]- 4872 Jan, [facility] [place] [facility] [address] [id number] [place] [address]- 4360 Jan, [facility] [place] [facility] [address] [id number] [place] [address]- 3304 Jan, [facility] [place] [facility] [address] [id number] [place] [address]- 7237 Dec, [facility] [place] [facility] [address] [id number] [place] [address]- 2721 Dec, [facility] [place] [facility] [address] [id number] [place] [address]- 2108 Dec, [facility] [place] [facility] [address] [id number] [place] [address]- 0266 Dec, [facility] [place] [facility] [address] [id number] [place] [address]- 1426 Dec, [facility] [place] [facility] [address] [id number] [place] [address]- 0986 Dec, [facility] [place] [facility] [address] [id number] [place] [address]- 9961 Dec, [facility] [place] [facility] [address] [id number] [place] [address]- 3140 Dec, [facility] [place] [facility] [address] [id number] [place] [address]- 3159 Dec, [facility] [place] [facility] [address] [id number] [place] [address]- 5896 Dec, [facility] [place] [facility] [address] [id number] [place] [address]- 0309 Dec, [facility] [place] [facility] [address] [id number] [place] [address]- 4020 Nov, [facility] [place] [facility] [address] [id number] [place] [address]- 1175 Nov, [facility] [place] [facility] [address] [id number] [place] [address]- 4973 Nov, [facility] [place] [facility] [address] [id number] [place] [address]- 4996 Nov, [facility] [place] [facility] [address] [id number] [place] [address]- 4833 17 Nov, 2013 [facility] [place] [facility] [address] [id number] [place] [address]- 4731 15 Nov, 2013 [facility] [place] [facility] [address] [id number] [place] [address]- 7253 15 Nov, 2013 [facility] [place] [facility] [address] [id number] [place] [address]- 9087 15 Nov, 2013 [facility] [place] [facility] [address] [id number] [place] [address]- 7011 15 Nov, 2013 [facility] [place] [facility] [address] [id number] [place] [address]- 9713 14 Nov, 2013 [facility] [place] [facility] [address] [id number] [place] [address]- 3301 14 Nov, 2013 [facility] [place] [facility] [address] [id number] [place] [address]- 9838 14 Nov, 2013 [facility] [place] [facility] [address] [id number] [place] [address]- 4293 14 Nov, 2013 [facility] [place] [facility] [address] [id number] [place] [address]- 7720 13 Nov, 2013 [facility] [place] [facility] [address] [id number] [place] [address]- 7107 13 Nov, 2013 [facility] [place] [facility] [address] [id number], [place] [address]- 7004 11 Nov, 2013 [facility] [place] [facility] [address] [id number] [place] [address]- 8869 11 Nov, 2013 [facility] [place] [facility] [address] [id number], [place] [address]- 4441 07 Nov, 2013 [facility] [place] [facility] [address] [id number], [place] [address]- 2613 07 Nov, 2013 [facility] [place] [facility] [address] [id number], [place] [address]- 7518 07 Nov, 2013 [facility] [place] [facility] [address] [id number] [place] [address]- 0358 07 Nov, 2013 [facility] [place] [facility] [address] [id number], [place] [address]- 6135 30 Oct, 2013 [facility] [place] [facility] [address] [id number] [place] [address]- 5585 30 Oct, 2013 [facility] [place] [facility] [address] [id number] [place] [address]- 1294 26 Oct, 2013 [facility] [place] [facility] [address] [id number] [place] [address] 2546 26 Oct, 2013 [facility] [place] [facility] [address] [id number] [place] [address] 2546 22 Oct, 2013 [facility] [place] [facility] [address] [id number] [place] [address]- 4650 22 Oct, 2013 [facility] [place] [facility] [address] [id number] [place] [address] 254 18 Oct, 2013 [facility] [place] [facility] [address] [id number] [place] [address]- 7826 18 Oct, 2013 [facility] [place] [facility] [address] [id number] [place] [address]- 3338 18 Oct, 2013 [facility] [place] [facility] [address] [id number] [place] [address]- 5005 18 Oct, 2013 [facility] [place] [facility] [address] [id number] [place] [address]- 9812 12 Oct, 2013 [facility] [place] [facility] [address] [id number] [place] [address] 2540 Oct, 2013 [facility] [place] [facility] [address] [id number] [place] [address]- 8594 Oct, 2013 [facility] [place] [facility] [address] [id number] [place] [address] 2549 Oct, 2013 [facility] [place] [facility] [address] [id number] [place] [address]- 4974 Sep, [facility] [place] [facility] [address] [id number] [place] [address]- 9677 Sep, [facility] [place] [facility] [address] [id number] [place] [address]- 5478 Sep, [facility] [place] [facility] [address] [id number] [place] [address]- 6704 Sep, [facility] [place] [facility] [address] [id number] [place] [address]- 0598 Sep, [facility] [place] [facility] [address] [id number] [place] [address]- 3352 Sep, [facility] [place] [facility] [address] [id number] [place] [address]- 8669 Sep, [facility] [place] [facility] [address] [id number] [place] [address]- 4494 Sep, [facility] [place] [facility] [address] [id number] [place] [address]- 9343 Sep, [facility] [place] [facility] [address] [id number] [place] [address]- 6177 Sep, [facility] [place] [facility] [address] [id number] [place] [address]- 7338 Sep, [facility] [place] [facility] [address] [id number] [place] [address]- 6487 Sep, [facility] [place] [facility] [address] [id number] [place] [address]- 3198 Sep, [facility] [place] [facility] [address] [id number] [place] [address]- 5125 Sep, [facility] [place] [facility] [address] [id number] [place] [address]- 1021 Sep, [facility] [place] [facility] [address] [id number] [place] [address]- 8747 Sep, [facility] [place] [facility] [address] [id number] [place] [address]- 0335 Sep, [facility] [place] [facility] [address] [id number] [place] [address]- 6447 Sep, [facility] [place] [facility] [address] [id number] [place] [address]- 1492 Aug, [facility] [place] [facility] [address] [id number] [place] [address]- 7823 Aug, [facility] [place] [facility] [address] [id number] [place] [address]- 1040 Aug, [facility] [place] [facility] [address] [id number] [place] [address]- 5826 Aug, [facility] [place] [facility] [address] [id number] [place] [address]- 0623 Aug, [facility] [place] [facility] [address] [id number] [place] [address]- 8031 Aug, [facility] [place] [facility] [address] [id number] [place] [address]- 1507 Jul, [facility] [place] [facility] [address] [id number] [place] [address]- 7727 Jul, [facility] [place] [facility] [address] [id number] [place] [address]- 0672 Jul, [facility] [place] [facility] [address] [id number] [place] [address]- 7504 Jul, [facility] [place] [facility] [address] [id number] [place] [address]- 0118 June, [facility] [place] [facility] [address] [id number] [place] [address]- 9081 June, [facility] [place] [facility] [address] [id number] [place] [address]- 9557 June, [facility] [place] [facility] [address] [id number] [place] [address]- 0417 June, [facility] [place] [facility] [address] [id number] [place] [address]- 3327 June, [facility] [place] [facility] [address] [id number] [place] [address]- 1887 June, [facility] [place] [facility] [address] [id number] [place] [address]- 8168 June, [facility] [place] [facility] [address] [id number] [place] [address]- 7774 29 May, 2013 [facility] [place] [facility] [address] [id number] [place] [address]- 4667 29 May, 2013 [facility] [place] [facility] [address] [id number] [place] [address]- 7126 May, [facility] [place] [facility] [address] [id number] [place] [address]- 1241 May, [facility] [place] [facility] [address] [id number] [place] [address]- 1127 May, [facility] [place] [facility] [address] [id number] [place] [address]- 8796 May, [facility] [place] [facility] [address] [id number] [place] [address]- 1715 31 Apr, 2013 [facility] [place] [facility] [address] [id number] [place] [address]- 3033 31 Apr, 2013 [facility] [place] [facility] [address] [id number] [place] [address]- 8763 28 Apr, 2013 [facility] [place] [facility] [address] [id number] [place] [address]- 3095 28 Apr, 2013 [facility] [place] [facility] [address] [id number] [place] [address]- 6684 14 Apr, 2013 [facility] [place] [facility] [address] [id number] [place] [address]- 8282 14 Apr, 2013 [facility] [place] [facility] [address] [id number] [place] [address]- 0346 12 Apr, 2013 [facility] [place] [facility] [address] [id number] [place] [address]- 1316 12 Apr, 2013 [facility] [place] [facility] [address] [id number] [place] [address]- 6696 10 Apr, 2013 [facility] [place] [facility] [address] [id number] [place] [address]- 2499 Apr, [facility] [place] [facility] [address] [id number] [place] [address]- 0180 Apr, [facility] [place] [facility] [address] [id number] [place] [address]- 4591 Apr, [facility] [place] [facility] [address] [id number] [place] [address]- 3755 Apr, [facility] [place] [facility] [address] [id number] [place] [address]- 7426 Apr, [facility] [place] [facility] [address] [id number] [place] [address]- 4691 Mar, [facility] [place] [facility] [address] [id number] [place] [address]- 0778 Mar, [facility] [place] [facility] [address] [id number] [place] [address] Mar, [facility] [place] [facility] [address] [id number] [place] [address] Feb, [facility] [place] [facility] [address] [id number] [place] [address] Feb, [facility] [place] [facility] [address] [id number] [place] [address] Feb, [facility] [place] [facility] [address] [id number] [place] [address] Feb, [facility] [place] [facility] [address] [id number] [place] [address] Feb, [facility] [place] [facility] [address] [id number] [place] [address] Feb, [facility] [place] [facility] [address] [id number] [place] [address] Feb, [facility] [place] [facility] [address] [id number] [place] [address] Feb, [facility] [place] [facility] [address] [id number] [place] [address] Feb, [facility] [address] [id number] [place] [address] Feb, [facility] [address] [id number] [place] [address] Jan, [facility] [address] [id number] [place] [address] Jan, [facility] [address] [id number] [place] [address] Jan, [facility] [address] [id number] [place] [address] Jan, [facility] [address] [id number] [place] [address] Jan, [facility] [address] [id number] [place] [address] Jan, [facility] [address] [id number] [place] [address] Jan, [facility] [address] [id number] [place] [address] Jan, [facility] [address] [id number] [place] [address] Jan, [facility] [address] [id number] [place] [address] Jan, [facility] [address] [id number] [place] [address] 17 Jan, 2013 [facility] [place] [facility] [address] [id number] [place] [address] 17 Jan, 2013 [facility] [place] [facility] [address] [id number] [place] [address] 16 Jan, 2013 [facility] [address] [id number] [place] [address] Jan, [facility] [place] [facility] [address] [id number] [place] [address] Jan, [facility] [address] [id number] [place] [address] Jan, [facility] [address] [id number] [place] [address] Jan, [facility] [address] [id number] [place] [address] Jan, [facility] [address] [id number] [place] [address] Jan, [facility] [address] [id number] [place] [address] Jan, [facility] [address] [id number] [place] [address] Jan, [facility] [address] [id number] [place] [address] Dec, [facility] [address] [id number] [place] [address] Dec, [facility] [address] [id number] [place] [address] Dec, [facility] [place] [facility] [address] [id number] [place] [address] Dec, [facility] [place] [facility] [address] [id number], [place] [address] Dec, [facility] [place] [facility] [address] [id number] [place] [address] Dec, [facility] [place] [facility] [address] [id number] [place] [address]67 Dec, [facility] [place] [facility] [address] [id number] [place] [address] Dec, [facility] [place] [facility] [address] [id number], [place] [address] Dec, [facility] [place] [facility] [address] [id number] [place] [address] Dec, [facility] [place] [facility] [address] [id number] [place] [address] Nov, [facility] [place] [facility] [address] [id number] [place] [address] Nov, [facility] [place] [facility] [address] [id number] [place] [address] Nov, [facility] [place] [facility] [address] [id number] [place] [address] Nov, [facility] [place] [facility] [address] [id number] [place] [address] Nov, [facility] [place] [facility] [address] [id number], [place] [address] Nov, [facility] [facility] [address] [id number] [place] [address] Nov, [facility] [address] [id number], [place] [address] Nov, [facility] [address] [id number], [place] [address] 32[address] Nov, [facility] [address] [id number], [place] [address] Nov, [facility] [address] [id number], [place] [address] 26 Oct, 2012 [facility] [address] [id number] [place] [address] Oct, [facility] [address] [id number] [place] [address]- 2704 Oct, [facility] [address] [id number] [place] [address]- 1533 25 Oct, 2012 [facility] [address] [id number] [place] [address] Oct, [facility] [address] [id number] [place] [address] Sep, [facility] [address] [id number] [place] [address] Sep, [facility] [address] [id number] [place] [address] 4805 Aug, [facility] [address] [id number] [place] [address]- 6[address] Aug, [facility] [address] [id number] [place] [address]- 5116 Aug, [facility] [address] [id number] [place] [address]- 1173 Aug, [facility] [address] [id number] [place] [address]- 2400 Aug, [facility] [address] [id number] [place] [address]- 7231 Aug, [facility] [address] [id number] [place] [address]- 1711 Aug, [facility] [address] [id number] [place] [address]- 7189 Jul, [facility] [address] [id number] [place] [address]- 5647 Jul, [facility] [address] [id number] [place] [address]- 0615 June, [facility] [address] [id number] [place] [address]- 3427 June, [facility] [address] [id number] [place] [address]- 0796 June, [facility] [address] [id number] [place] [address]- 7540 June, [facility] [address] [id number] [place] [address]- 5131 June, [facility] [address] [id number] [place] [address]- 3925 June, [facility] [address] [id number] [place] [address]- 5301 June, [facility] [address] [id number] [place] [address]- 8859 June, [facility] [address] [id number] [place] [address]- 7940 June, [facility] [address] [id number] [place] [address]- 4336 June, [facility] [address] [id number] [place] [address]- 2737 June, [facility] [address] [id number] [place] [address]- 1505 May, [facility] [address] [id number] [place] [address]- 0841 May, [facility] [address] [id number] [place] [address]- 5030 May, [facility] [address] [id number] [place] [address]- 6539 May, [facility] [address] [id number] [place] [address]- 5133 Apr, [facility] [address] [id number] [place] [address]- 9674 Apr, [facility] [address] [id number] [place] [address]- 3763 Apr, [facility] [address] [id number] [place] [address]- 4290 Mar, [facility] [address] [id number] [place] [address]- 6965 11 Mar, 2012 [facility] [address] [id number] [place] [address]- 6126 29 Feb, 2012 [facility] [address] [id number] [place] [address]- 6703 Feb, [facility] [address] [id number] [place] [address]- 6006 Feb, [facility] [address] [id number] [place] [address]- 1203 Feb, [facility] [address] [id number] [place] [address]- 0822 16 Feb, 2012 [facility] [address] [id number] [place] [address]- 0004 Feb, [facility] [address] [id number] [place] [address]- 2659 Feb, [facility] [address] [id number] [place] [address]- 0719 31 Jan, 2012 [facility] [address] [id number] [place] [address]- 7345 31 Jan, 2012 [facility] [address] [id number] [place] [address]- 9448 Jan, [facility] [address] [id number] [place] [address]- 0516 17 Jan, 2012 [facility] [address] [id number] [place] [address]- 2548 17 Jan, 2012 [facility] [address] [id number] [place] [address]- 2233 Jan, [facility] [address] [id number] [place] [address]- 2701 Jan, [facility] [address] [id number] [place] [address]- 9116 10 Jan, 2012 [facility] [address] [id number] [place] [address] 1942 Jan, [facility] [address] [id number] [place] [address]- 0743 Jan, [facility] [address] [id number] [place] [address]- 6513 Jan, [facility] [address] [id number] [place] [address]- 1851 Dec, [facility] [address] [id number] [place] [address]- 7901 Dec, [facility] [address] [id number] [place] [address]- 9649 Dec, [facility] [address] [id number] [place] [address]- 4953 Dec, [facility] [address] [id number] [place] [address]- 9497 Nov, [facility] [address] [id number] [place] [address]- 7021 Nov, [facility] [address] [id number] [place] [address]- 5140 Nov, [facility] [address] [id number] [place] [address]- 5005 27 Oct, 2011 [facility] [address] [id number] [place] [address]- 6157 24 Sep2011 [facility] [address] [id number] [place] [address]- 3003 21 Sep2011 [facility] [address] [id number] [place] [address]- 0211 10 Oct, 2011 [facility] [address] [id number] [place] [address]- 8980 07 Sep2011 [facility] [address] [id number] [place] [address]- 0356 Oct, [facility] [address] [id number] [place] [address]- 3705 Oct, [facility] [address] [id number] [place] [address]- 2549 Sep, [facility] [address] [id number] [place] [address]- 4726 Sep, [facility] [address] [id number] [place] [address]- 2102 Sep, [facility] [address] [id number] [place] [address]- 9469 Sep, [facility] [address] [id number] [place] [address]- 2962 Sep, [facility] [address] [id number] [place] [address]- 8528 Aug, [facility] [address] [id number] [place] [address]- 7777 Aug, [facility] [address] [id number] [place] [address]- 0904 Aug, [facility] [address] [id number] [place] [address]- 5895 Aug, [facility] [address] [id number] [place] [address]- 4986 Aug, [facility] [address] [id number] [place] [address]- 3643 Aug, [facility] [address] [id number] [place] [address]- 4934 Aug, [facility] [address] [id number] [place] [address]- 0949 Jul, [facility] [address] [id number] [place] [address]- 8524 Jul, [facility] [address] [id number] [place] [address]- 1721 Jul, [facility] [address] [id number] [place] [address]- 5924 Jul, [facility] [address] [id number] [place] [address]- 8209 Jul, [facility] [address] [id number] [place] [address]- 2188 Jul, [facility] [address] [id number] [place] [address]- 7932 07 Jul, 2011 [facility] [address] [id number] [place] [address]- 2478 Jul, [facility] [address] [id number] [place] [address]- 7898 Jul, [facility] [address] [id number] [place] [address]- 0533 June, [facility] [address] [id number] [place] [address]- 9844 June, [facility] [address] [id number] [place] [address]- 3313 June, [facility] [address] [id number] [place] [address]- 7949 June, [facility] [address] [id number] [place] [address]- 8099 June, [facility] [address] [id number] [place] [address]- 2781 June, [facility] [address] [id number] [place] [address]- 8222 June, [facility] [address] [id number] [place] [address]- 7266 June, [facility] [address] [id number] [place] [address]- 5593 May, [facility] [address] [id number] [place] [address]- 5804 May, [facility] [address] [id number] [place] [address]- 4356 May, [facility] [address] [id number] [place] [address]- 5846 May, [facility] [address] [id number] [place] [address]- 6336 May, [facility] [address] [id number] [place] [address]- 8171 May, [facility] [address] [id number] [place] [address]- 5306 May, [facility] [address] [id number] [place] [address]- 7322 Apr, [facility] [address] [id number] [place] [address]- 1401 Apr, [facility] [address] [id number] [place] [address]- 5510 Apr, [facility] [address] [id number] [place] [address]- 9603 Apr, [facility] [address] [id number] [place] [address]- 8825 Apr, [facility] [address] [id number] [place] [address]- 6136 Apr, [facility] [address] [id number] [place] [address]- 4596 Apr, [facility] [address] [id number] [place] [address]- 6166 Mar, [facility] [address] [id number] [place] [address]- 1816 Mar, [facility] [address] [id number] [place] [address]- 7071 14 Mar, 2011 [facility] [address] [id number] [place] [address]- 3546 13 Mar, 2011 [facility] [address] [id number] [place] [address]- 3206 09 Mar, 2011 [facility] [address] [id number] [place] [address]- 9626 Mar, [facility] [address] [id number] [place] [address] 2543 Mar, [facility] [address] [id number] [place] [address]- 4870 Feb, [facility] [address] [id number] [place] [address]- 6445 Feb, [facility] [address] [id number] [place] [address]- 6968 Feb, [facility] [address] [id number] [place] [address]- 0512 Feb, [facility] [address] [id number] [place] [address]- 8754 Feb, [facility] [address] [id number] [place] [address]- 5615 Feb, [facility] [address] [id number] [place] [address]- 6697 Feb, [facility] [address] [id number] [place] [address]- 6263 Feb, [facility] [address] [id number] [place] [address]- 9919 Feb, [facility] [address] [id number] [place] [address]- 6746 Feb, [facility] [address] [id number] [place] [address]- 4531 Jan, [facility] [address] [id number] [place] [address]- 7482 Jan, [facility] [address] [id number] [place] [address]- 1146 Jan, [facility] [facility] [address] [id number] [place] [address]65 Jan, [facility] [address] [id number] [place] [address]- 3765 Jan, [facility] [address] [id number] [place] [address]- 6617 Jan, [facility] [facility] [address] [id number] [place] [address]- 5220 Jan, [facility] [facility] [address] [id number] [place] [address]- 9867 Jan, [facility] [facility] [address] [id number] [place] [address]- 3238 Jan, [facility] [place] [facility] [address] [id number] [place] [address]- 3452 Jan, [facility] [facility] [address] [id number] [place] [address]- 3796 Jan, [facility] [address] [id number] [place] [address]- 4513 17 Dec, 2010 [facility] [facility] [address] [id number], [place] [address]- 5132 17 Dec, 2010 [facility] [facility] [address] [id number] [place] [address]- 6146 17 Dec, 2010 [facility] [facility] [address] [id number] [place] [address]- 2609 16 Dec, 2010 [facility] [place] [facility] [address] [id number] [place] 2770 14 Dec, 2010 [facility] [place] [facility] [address] [id number], [place] [address]- 4120 Dec, [facility] [facility] [address] [id number] [place] [address]- 7464 Dec, [facility] [place] [facility] [address] [id number] [place] 9684 Dec, [facility] [place] [facility] [address] [id number] [place] [address]- 2900 Dec, [facility] [place] [facility] [address] [id number] [place] [address]- 5735 Nov, [facility] [place] [facility] [address] [id number] [place] [address]- 8114 Nov, [facility] [place] [facility] [address] [id number] [place] [address]- 4948 Nov, [facility] [place] [facility] [address] [id number] [place] [address]- 5911 Nov, [facility] [place] [facility] [address] [id number] [place] [address]- 6751 24 Nov, 2010 [facility] [place] [facility] [address] [id number] [place] [address]- 0766 Nov, [facility] [place] [facility] [address] [id number] [place] [address]- 9843 Aug, [facility] [place] [facility] [address] [id number], [place] [address]- 1450 Feb, [facility] [place] [facility] [address] [id number] [place] [address]- 8618 14 Jan, 2010 [facility] [place] [facility] [address] [id number] [place]93 Jan, [facility] [place] [facility] [address] [id number] [place] [address]- 7730 Jan, [facility] [place] [facility] [address] [id number] [place] Jan, [facility] [place] [facility] [address] [id number] [address]9 Jan, [facility] [id number] [address] Dec, [facility] [id number] 2739 Dec, [facility] [id number], [place] [address]- 2014 Dec, [facility] [id number], [place] [address]- 7168 Dec, [facility] [id number] [address] Nov, [facility] [id number], [place] [address]- 9567 Nov, [facility] [id number], [place] [address]- 1876 Nov, IMMUNIZATIONS No Known Immunizations SOCIAL HISTORY Never Assessed REASON FOR VISIT Prior Authorization Approved PLAN OF CARE VITAL SIGNS MEDICATIONS Unknown [...]
--- OUTSIDE RECORDS SUMMARY | 2018-01-13 22:01 | XMS REPORT ---
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 Active 289094534 Problem Hypertension I10 Active 77141314 Problem Arthritis M19.90 Active 1602905 Problem 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 Active 07743903 Problem Anxiety F41.9 Active 16302540 Problem Unspecified episodic mood disorder F39 Active 72442075 Problem Left hip pain M25.552 Active 56093196 ALLERGIES Substance Reaction Event Type Date Status Propranolol HCl chest pain, headache Drug Allergy Aug, Active Bactrim unknown Drug Allergy Aug, Active Penicillins unknown Non Drug Allergy Aug, Active ENCOUNTERS Encounter Location Date Diagnosis [facility] [address] [facility] [id number] [id number] Nov, [facility] [address] [facility] [id number], [place] [address] Oct, [facility] [address] [address] Oct, [facility] [id number] [place] [address] 29098- 4806 Sep, Chronic hepatitis C without hepatic coma B18.2 [facility] [id number] [place] [address] 83015- 0942 Sep, Gastroesophageal reflux disease, esophagitis presence not specified K21.9 and Other chronic pain G89.29 [facility] [id number] [place] [address] 08771- 2866 Sep, [facility] [id number] [place] [address] 07809- 8894 Sep, [facility] [id number] [place] [address] 37458- 4463 Sep, Chronic hepatitis C without hepatic coma B18.2 [facility] [address] [place] [address] 26461- 1946 Sep, 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 [facility] [id number] [place] [address] 30639- 5779 Sep, Arthritis M19.90 [facility] [id number] [place] [address] 72018- 6266 Sep, [facility] [address] [place] [address] 96004- 1737 Sep, Unspecified episodic mood disorder F39 [facility] [id number] [place] [address] 87571- 2839 Aug, [facility] [id number] [place] [address] [id number] Aug, [facility] [address] [place] [address] 02195- 3698 Aug, Arthritis M19.90 [facility] [address], [place] [address] 9[address] Aug, [facility] [id number] [place] [address] 44121- 8679 Aug, Obesity (BMI 30.0-34.9) E66.9 ; Unspecified episodic mood disorder F39 and Hypertension I10 [facility] [id number] [place] [address] 05698- 9136 Aug, Unspecified episodic mood disorder F39 [facility] [id number] [place] [address] 09995- 2223 Aug, [facility] [id number] [place] [address] 00776- 9574 Jul, Unspecified episodic mood disorder F39 [facility] [id number] [place] [address] 32615- 2060 Jul, [facility] [id number] [place] [address] 19912- 8312 Jul, Arthritis M19.90 [facility] [id number] [place] [address] 13919- 1639 Jul, Left hip pain M25.552 ; Hypertension I10 ; Other obesity due to excess calories E66.09 and Body mass index (BMI) of 34.0-34.9 in adult Z68.34 [facility] [address] [place] [address] 10971- 9902 Jul, Unspecified episodic mood disorder F39 [facility] [address] [place] [address] 91983- 2183 June, Gastroesophageal reflux disease, esophagitis presence not specified K21.9 [facility] [address] [place] [address] 93749- 8949 June, [facility] [address], [place] [address] 8480 June, [facility] [address] [place] [address] 4041 June, Arthritis M19.90 [facility] [address], [place] [address] 1331 June, [facility] [address], [place] [address] 0028 June, [facility] [address] [place] [address] 83455- 3938 June, Unspecified episodic mood disorder F39 [facility] [address] [place] [address] 26042- 5218 May, Unspecified episodic mood disorder F39 [facility] [id number] [place] [address] 46423- 1867 May, [facility] [id number] [place] [address] 18001- 7568 May, Arthritis M19.90 [facility] [address], [place] [address] May, Dysuria R30.0 ; Abscess L02.91 and Acute cystitis without hematuria N30.00 [facility] [address] [place] [address] 06525- 8357 May, Other disorder of impulse control F63.89 ; Unspecified episodic mood disorder F39 ; Combined drug dependence excluding opioids, 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 ; Anxiety F41.9 and Other psychoactive substance dependence, 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 [facility] [address], [place] [address] 9842 May, [facility] [id number] [place] [address] 47170- 4175 May, Other disorder of impulse control F63.89 ; Unspecified episodic mood disorder F39 ; Combined drug dependence excluding opioids, 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 ; Other psychoactive substance dependence, 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 and Anxiety F41.9 [facility] [address] [place] [address] 23664- 7232 May, Other chronic pain G89.29 ; Left hip pain M25.552 ; Hypertension I10 ; 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, 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 and Unspecified episodic mood disorder F39 [facility] [address] [place] [address] 74212- 1171 Apr, [facility] [id number] [place] [address] 82218 -4832 Apr, Neck pain M54.2 ; Left hip pain M25.552 and Fall, initial encounter W19.XXXA [facility] [address] 66887- 9922 Apr, Unspecified episodic mood disorder F39 ; Combined drug dependence excluding opioids, 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 ; Anxiety F41.9 ; Other psychoactive substance dependence, 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 and Other disorder of impulse control F63.89 [facility] [id number] [place] [address] 27741- 2833 Apr, [facility] [id number] [place] [address] 30708- 9049 Apr, Arthritis M19.90 and Unspecified episodic mood disorder F39 [facility] [id number] [place] [address] 26735- 4656 Apr, Unspecified episodic mood disorder F39 [facility] [address] [place] [address] 21803- 4911 Apr, [facility] [id number] [place] [address] 53773- 2717 08 Apr, 2017 [facility] [id number] [place] [address] 82507- 3205 07 Apr, 2017 Unspecified episodic mood disorder F39 ; Combined drug dependence excluding opioids, 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 ; Anxiety F41.9 ; Other psychoactive substance dependence, 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 and Other disorder of impulse control F63.89 [facility] [id number] [place] [address] 07240- 7101 Mar, Unspecified episodic mood disorder F39 [facility] [id number] [place] [address] 09390- 8226 Mar, Gastroesophageal reflux disease, esophagitis presence not specified K21.9 [facility] [id number] [place] [address] 40953- 7026 Mar, Arthritis M19.90 and Unspecified episodic mood disorder F39 [facility] [id number] [place] [address] 91576- 4636 Feb, [facility] [id number] [place] [address] 81300- 8277 Feb, [facility] [id number] [place] [address] 17242- 9261 Feb, [facility] [id number] [place] [address] 52600- 1637 Feb, Arthritis M19.90 [facility] [address] [place] [address] 80845- 7804 Feb, Non-pressure chronic ulcer of right calf, 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 ; Unspecified episodic mood disorder F39 and Left hip pain M25.552 [facility] [address], [place] [address]- 0606 Feb, [facility] [address] [place] [address] 89261- 3538 Feb, [facility] [address] [place] [address] 17285- 6596 Jan, Arthritis M19.90 [facility] [address], [place] [address]- 6724 Jan, Left hip pain M25.552 and Non-pressure chronic ulcer of right calf, 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 [facility] [id number] [place] [address] 82056- 2117 Jan, Chronic hepatitis C without hepatic coma B18.2 [facility] [address] 53200- 4743 Jan, Encounter for immunization Z23 ; Venous insufficiency ( chronic) (peripheral) I87.2 ; Non-pressure chronic ulcer of unspecified calf limited to breakdown of skin L97.201 and Gastroesophageal reflux disease, esophagitis presence not specified K21.9 [facility] [address] 54538- 3936 Jan, [facility] [address] 18304- 8175 Jan, Chronic hepatitis C without hepatic coma B18.2 and Encounter for immunization Z23 [facility] [address] 28267- 4039 Jan, Arthritis M19.90 [facility] [address] 12372- 6892 Jan, [facility] [id number] [place] [address] 72531- 4009 Dec, [facility] [id number] [place] [address] 76229- 9499 Dec, Unspecified episodic mood disorder F39 [facility] [id number] [place] [address] 55291- 2305 Dec, Arthritis M19.90 [facility] [id number] [place] [address] 33636- 5388 Dec, Arthritis M19.90 [facility] [id number] [place] [address] 86971- 7028 Nov, [facility] [id number] [place] [address] 00392- 5285 Nov, [facility] [id number] [place] [address] 63985- 9582 Nov, Other psychoactive substance dependence, 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 ; 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, 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 and Chronic hepatitis C without hepatic coma B18.2 [facility] [id number] [place] [address] 03007- 0501 Nov, Arthritis M19.90 [facility] [id number] [place] [address] 25625 -4051 Oct, Partial thickness burn of abdomen, initial encounter T21.22XA [facility] [id number] [place] [address] 90723- 5986 Oct, [facility] [id number] [place] [address] 39749- 4845 Sep, Arthritis M19.90 [facility] [id number] [place] [address] 59432- 1490 Sep, [facility] [id number] [place] [address] 10845- 5734 Sep, [facility] [id number] [place] [address] 56988- 0035 Sep, Unspecified episodic mood disorder F39 ; Chronic hepatitis C without hepatic coma B18.2 and Left hip pain M25.552 [facility] [id number] [place] [address] 67370- 8863 Sep, Arthritis M19.90 and Left hip pain M25.552 [facility] [id number] [place] [address] 10865- 6093 Aug, [facility] [id number] [place] [address] 10243- 5009 Aug, [facility] [id number] [place] [address] 30979- 4061 Aug, Chronic hepatitis C without hepatic coma B18.2 [facility] [id number] [place] [address] 88529- 0695 Aug, [facility] [address] [place] [address] 43683- 1554 Aug, Chronic hepatitis C without hepatic coma B18.2 [facility] [id number] [place] [address] 82591- 5507 Aug, 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, 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 [facility] [id number] [place] [address] 56022- 9573 Aug, [facility] [id number] [place] [address] 43325- 7432 Aug, Chronic hepatitis C without hepatic coma B18.2 and Hypertension I10 [facility] [id number] [place] [address] 40893- 7527 Jul, [facility] [id number] [place] [address] 63075- 2062 June, [facility] [id number] [place] [address] 66040- 4757 Apr, Fibromyalgia M79.7 ; Left hip pain M25.552 and Decubitus ulcer of sacral region, stage 1 L89.151 [facility] [id number] [place] [address] 80625- 6422 Apr, [facility] [id number] [place] [address] 83687- 4323 Apr, [facility] [id number] [place] [address] 28369- 7411 Feb, [facility] [id number] [place] [address] 34976- 2711 Dec, Anxiety F41.9 ; Combined drug dependence excluding opioids, 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 and Unspecified episodic mood disorder F39 [facility] [id number] [place] [address] 65051- 3850 Dec, [facility] [address] 80225- 9810 Nov, [facility] [id number] [place] [address] 40808- 8062 Nov, [facility] [id number] [place] [address] 14763- 0219 Nov, Other disorder of impulse control F63.89 and Anxiety F41.9 [facility] [id number] [place] [address] 89647- 9548 Oct, [facility] [id number] [place] [address] 60520 -1862 14 Oct, 2015 Open wound of left thigh, initial encounter S71.102A [facility] [id number] [place] [address] 54977- 9690 Oct, [facility] [id number] [place] [address] 69427- 0847 Sep, Unspecified episodic mood disorder F39 ; Other disorder of impulse control 312.39 ; Combined drug dependence excluding opioids, 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 and Anxiety F41.9 [facility] [address] [place] [address] 28168- 0622 Sep, Other disorder of impulse control 312.39 ; Combined drug dependence excluding opioids, 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 ; Anxiety F41.9 and Unspecified episodic mood disorder F39 [facility] [address] [place] [address] 40772- 0301 Sep, Other chronic pain G89.29 [facility] [id number] [place] [address] 88148- 1726 Sep, [facility] [id number] [place] [address] 37955- 9762 Sep, [facility] [address] [place] [address] 80613- 3261 Aug, [facility] [id number] [place] [address] 83123- 3643 Aug, [facility] [address], [place] [address]- 0471 Aug, [facility] [id number] [place] [address] 15761- 1447 Jul, [facility] [id number] [place] [address] 36750- 5173 Jul, [facility] [id number] [place] [address] 45626- 8815 Jul, [facility] [id number] [place] [address] 26348- 6500 17 Jul, 2015 Arthritis M19.90 ; Chronic hepatitis C without hepatic coma B18.2 and Left hip pain M25.552 [facility] [id number] [place] [address] 75865- 4088 Jul, Left knee pain M25.562 [facility] [id number] [place] [address] 46643- 9454 Jul, Combined drug dependence excluding opioids, 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 ; Anxiety F41.9 ; Other disorder of impulse control 312.39 and Unspecified episodic mood disorder F39 [facility] [address] [place] [address] 02860- 8206 Jul, Left knee pain M25.562 [facility] [address] [place] [address] 14691- 8777 Jul, Left knee pain M25.562 and Left hip pain M25.552 [facility] [address] [place] [address] 68172- 1167 Jul, [facility] [id number] [place] [address] 04535- 9439 June, [facility] [address] [place] [address] 21149- 3875 June, Combinations of drug dependence excluding opioid type drug, unspecified abuse 304.80 ; Other disorder of impulse control 312.39 ; Unspecified episodic mood disorder F39 and Anxiety F41.9 [facility] [address] [place] [address] 81926- 4578 June, Other fatigue R53.83 ; Headache R51 and Left knee pain M25.562 [facility] [id number] [place] [address] 17315- 2489 June, Unspecified episodic mood disorder F39 ; Combinations of drug dependence excluding opioid type drug, unspecified abuse 304.80 ; Other disorder of impulse control 312.39 and Anxiety F41.9 [facility] [id number] [place] [address] 35113- 7922 June, Anxiety F41.9 [facility] [id number] [place] [address] 72791- 0241 June, Pain in left knee M25.562 [facility] [id number] [place] [address] 88110- 3392 June, Anxiety F41.9 and Combinations of drug dependence excluding opioid type drug, unspecified abuse 304.80 [facility] [id number] [place] [address] 73385- 0475 June, Unspecified episodic mood disorder 296.90 ; Combinations of drug dependence excluding opioid type drug, unspecified abuse 304.80 and Other disorder of impulse control 312.39 [facility] [address] [place] [address] 29211- 7268 June, Anxiety F41.9 and Unspecified episodic mood disorder 296.90 [facility] [address] [place] [address] 83052- 9012 May, Arthritis M19.90 [facility] [id number] [place] [address] 90610- 6207 May, Arthritis M19.90 [facility] [address] [place] [address] 15636- 7292 May, Anxiety F41.9 ; Combinations of drug dependence excluding opioid type drug, unspecified abuse 304.80 and Other disorder of impulse control 312.39 [facility] [address] [address] 18 May, 2015 Left knee pain M25.562 [facility] [address], [place] [address]- 9660 14 May, 2015 Arthritis M19.90 [facility] [address] [place] [address] 64085- 9455 May, [facility] [address] [place] [address] 79679- 3618 May, Anxiety F41.9 ; Unspecified episodic mood disorder 296.90 ; Combinations of drug dependence excluding opioid type drug, unspecified abuse 304.80 and Other disorder of impulse control 312.39 [facility] [address] [address] 1946 May, Left knee pain M25.562 [facility] [address] [place] [address] 29929- 5174 May, Left knee pain M25.562 ; Combinations of drug dependence excluding opioid type drug, unspecified abuse 304.80 ; Other disorder of impulse control 312.39 ; Fibromyalgia M79.7 ; Hypertension I10 ; Unspecified episodic mood disorder 296.90 and Left hip pain M25.552 [facility] [address] [place] [address]- 9453 May, Unspecified episodic mood disorder 296.90 ; Other disorder of impulse control 312.39 ; Combinations of drug dependence excluding opioid type drug, unspecified abuse 304.80 and Anxiety F41.9 [facility] [address] [place] [address] 47028- 3034 May, Left knee pain M25.562 ; Combinations of drug dependence excluding opioid type drug, unspecified abuse 304.80 ; Other disorder of impulse control 312.39 ; Fibromyalgia M79.7 ; Hypertension I10 ; Unspecified episodic mood disorder 296.90 and Left hip pain M25.552 [facility] [address] [place] [address] 55720- 1248 May, Anxiety F41.9 ; Unspecified episodic mood disorder 296.90 ; Other disorder of impulse control 312.39 and Combinations of drug dependence excluding opioid type drug, unspecified abuse 304.80 [facility] [id number] [place] [address] [phone] 30 Apr, 2015 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 and 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, implants and grafts, initial encounter T84.82XA [facility] [address] [place] [id number] [place] [id number] 28 Apr, 2015 Anxiety F41.9 ; Unspecified episodic mood disorder 296.90 ; Combinations of drug dependence excluding opioid type drug, unspecified abuse 304.80 and Other disorder of impulse control 312.39 [place] [address] [place] [id number] [place] [address] [id number] Apr, Arthritis M19.90 [facility] [address] [place] [id number] [place] [address] [phone]- [phone] Apr, Anxiety F41.9 ; Unspecified episodic mood disorder 296.90 ; Combinations of drug dependence excluding opioid type drug, unspecified abuse 304.80 and Other disorder of impulse control 312.39 [facility] [id number] [place] [address] 39454- 0499 17 Apr, 2015 Arthritis M19.90 [facility] [id number] [place] [address] 04184- 4923 15 Apr, 2015 [facility] [id number] [place] [address] 60120- 7725 15 Apr, 2015 [facility] [id number] [place] [address] 06267- 2255 14 Apr, 2015 Unspecified episodic mood disorder 296.90 ; Combinations of drug dependence excluding opioid type drug, unspecified abuse 304.80 ; Other disorder of impulse control 312.39 and Anxiety F41.9 [facility] [id number] [place] [address] 83805 -1190 Apr, Left knee pain M25.562 [facility] [id number] [place] [address] 30262- 7086 Apr, [facility] [id number] [place] [address] 32603- 5487 Mar, Unspecified episodic mood disorder 296.90 ; Anxiety F41.9 ; Other disorder of impulse control 312.39 and Combinations of drug dependence excluding opioid type drug, unspecified abuse 304.80 [facility] [id number] [place] [address] 21351- 8435 Mar, Hyperpigmentation L81.9 [facility] [id number] [place] [address] 43550- 9450 Mar, Arthritis M19.90 and Anxiety F41.[address] 37582- 9469 Mar, Unspecified episodic mood disorder F39 ; Combined drug dependence excluding opioids, 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 ; Other disorder of impulse control F63.89 and Anxiety F41.9 [facility] [id number] [place] [address] 74845- 9676 12 Mar, 2015 Well woman exam Z01.419 ; Other fatigue R53.83 ; Hot flashes N95.1 ; Depression, unspecified depression type F32.9 and Body mass index (BMI) of 23.0-23.9 in adult Z68.23 [facility] [id number] [place] [address] 87264- 9086 11 Mar, 2015 Unspecified episodic mood disorder 296.90 ; Other disorder of impulse control 312.39 and Anxiety F41.9 [facility] [id number] [place] [address] 82600- 8386 11 Mar, 2015 Well woman exam Z01.419 [...] of breast Z12.39 and Limited mobility Z74.[address] 25264- 8286 Mar, [address] 69117- 3396 Mar, [address] 03308- 7770 Mar, [address] 13306- 2747 Mar, Other specified complication of internal orthopedic prosthetic devices, implants and grafts, initial encounter T84.89XA ; Fibromyalgia M79.7 ; Hypertension I10 ; Anemia D64.9 ; Insomnia G47.00 ; Anxiety F41.9 ; Arthritis M19.90 and Migraine G43.[address] 34652- 3786 Mar, [address] 76184- 1966 Feb, [address] 06857- 8082 Feb, Arthritis M19.90 and Anxiety F41.[address] 77065- 1988 Feb, [address] 69656- 5621 Feb, [address] [place] [address]- 7548 Feb, [facility] [id number] [place] [address] 00405- 4673 Feb, [facility] [id number] [place] [address] 74081- 5204 Feb, Anxiety F41.9 [facility] [id number] [place] [address] 21578- 3082 [address], [address] 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 and Fibromyalgia M79.7 [facility] [id number] [place] [address] 67196- 9556 Feb, [facility] [id number] [place] [address] 73240- 5676 Jan, [facility] [id number] [place] [address] 97347- 3915 Jan, [facility] [id number] [place] [address] 97676- 7119 Jan, [facility] [address] [address]- 3707 24 Jan, 2015 [facility] [id number] [place] [address] 95901- 5883 16 Jan, 2015 [facility] [address] [place] [address] 01912- 0098 [address], [address] [facility] [id number] [place] [address] 56778- 3218 07 Jan, 2015 [facility] [address] [address]- 1258 07 Jan, 2015 [facility] [address] [id number] [address]- 8253 Dec, [facility] [id number] [place] [address] 22827- 9740 Dec, Left knee pain M25.562 [facility] [id number] [place] [address] 28579- 7331 Dec, Left knee pain M25.562 [facility] [id number] [place] [address] 74369- 7964 Dec, Fibromyalgia M79.7 ; Hypertension I10 and Arthritis M19.90 [facility] [id number] [place] [address] 47177- 5400 Dec, [facility] [id number] [place] [address] 81192- 7176 Dec, [facility] [id number] [place] [address] 57605- 7749 Dec, [facility] [id number] [place] [address] 91054- 4996 Dec, [facility] [id number] [place] [address] 33509- 1582 Nov, [facility] [address] [address]- 4201 Nov, [facility] [id number] [place] [address] 45305- 8497 Nov, [facility] [address] [address]- 254 Nov, Hypertension I10 [facility] [address], [place] [address]- 3423 Oct, [facility] [address], [place] [address]- 2548 Oct, [facility] [id number] [place] [address] 25077- 2393 Oct, [facility] [place] [facility] [address] [id number], [place] [address]- 8190 Oct, [facility] [address] [id number] [place] [address]- 2554 Oct, [facility] [address] [id number] [place] [address]- 4419 Sep, [facility] [address] [id number] [place] [address]- 5861 Sep, [facility] [address] [id number] [place] [address]- 3771 Sep, Hip pain associated with recalled total hip arthroplasty hardware 996.77 [facility] [address] [id number] [place] [address]- 8887 Sep, [facility] [address] [id number], [place] [address]- 9145 Sep, [facility] [address] [id number], [place] [address]- 3241 Sep, [facility] [address] [id number], [place] [address]- 8328 Aug, [facility] [address] [facility] [id number], [place] [address]- 8169 Jul, [facility] [address] [id number], [place] [address]- 7248 June, [facility] [address] [id number], [place] [address]- 2023 June, [facility] [address] [id number], [place] [address]- 8737 June, [facility] [address] [facility] [id number] 6181 June, [facility] [address] [facility] [id number] [place] [address]- 6260 June, [facility] [place] [facility] [address] [id number] [place] [address]- 9766 June, [facility] [place] [facility] [address] [id number] [place] [address]- 6976 30 May, 2014 [facility] [place] [facility] [address] [id number] [place] [address]- 2546 May, [facility] [place] [facility] [address] [id number] [place] [address]- 6926 May, [facility] [place] [facility] [address] [id number] [place] [address]- 8956 30 Apr, 2014 [facility] [place] [facility] [address] [id number] [place] [address]- 6206 30 Apr, 2014 [facility] [place] [facility] [address] [id number] [place] [address]- 5736 Apr, [facility] [place] [facility] [address] [id number] [place] [address]- 5124 Apr, [facility] [place] [facility] [address] [id number] [place] [address]- 5516 Apr, [facility] [place] [facility] [address] [id number] [place] [address]- 1172 Apr, [facility] [place] [facility] [address] [id number] [place] [address]- 0275 Apr, [facility] [place] [facility] [address] [id number] [place] [address]- 8536 Apr, [facility] [place] [facility] [address] [id number] [place] [address]- 2366 Apr, [facility] [place] [facility] [address] [id number] [place] [address]- 8106 05 Apr, 2014 [facility] [place] [facility] [address] [id number] [place] [address]- 2546 Apr, [facility] [place] [facility] [address] [id number] [place] [address]- 1462 Mar, 2014 [facility] [place] [facility] [address] [id number] [place] [address]- 8188 Mar, 2014 [facility] [place] [facility] [address] [id number] [place] [address]- 8660 Mar, [facility] [place] [facility] [address] [id number] [place] [address]- 4024 Mar, 2014 [facility] [place] [facility] [address] [id number] [place] [address]- 4852 Mar, 2014 [facility] [place] [facility] [address] [id number] [place] [address]- 0444 Mar, [facility] [place] [facility] [address] [id number] [place] [address]- 8963 Feb, [facility] [place] [facility] [address] [id number] [place] [address]- 3367 Feb, [facility] [place] [facility] [address] [id number] [place] [address]- 3701 Feb, [facility] [place] [facility] [address] [id number] [place] [address]- 7090 Feb, [facility] [place] [facility] [address] [id number] [place] [address]- 1388 Jan, [facility] [place] [facility] [address] [id number] [place] [address]- 0682 Jan, [facility] [place] [facility] [address] [id number] [place] [address]- 5999 Jan, [facility] [place] [facility] [address] [id number] [place] [address]- 7539 Jan, [facility] [place] [facility] [address] [id number] [place] [address]- 0020 Dec, [facility] [place] [facility] [address] [id number] [place] [address]- 7112 Dec, [facility] [place] [facility] [address] [id number] [place] [address]- 6670 Dec, [facility] [place] [facility] [address] [id number] [place] [address]- 7332 Dec, [facility] [place] [facility] [address] [id number] [place] [address]- 1489 Dec, [facility] [place] [facility] [address] [id number] [place] [address]- 1264 Dec, [facility] [place] [facility] [address] [id number] [place] [address]- 5078 Dec, [facility] [place] [facility] [address] [id number] [place] [address]- 4366 Dec, [facility] [place] [facility] [address] [id number] [place] [address]- 8418 Dec, [facility] [place] [facility] [address] [id number] [place] [address]- 6356 Dec, [facility] [place] [facility] [address] [id number] [place] [address]- 1719 Dec, [facility] [place] [facility] [address] [id number] [place] [address]- 2638 Nov, [facility] [place] [facility] [address] [id number] [place] [address]- 9719 Nov, [facility] [place] [facility] [address] [id number] [place] [address]- 5482 28 Nov, 2013 [facility] [place] [facility] [address] [id number] [place] [address]- 7632 Nov, [facility] [place] [facility] [address] [id number] [place] [address]- 9095 17 Nov, 2013 [facility] [place] [facility] [address] [id number] [place] [address]- 5600 15 Nov, 2013 [facility] [place] [facility] [address] [id number] [place] [address]- 0600 15 Nov, 2013 [facility] [place] [facility] [address] [id number] [place] [address]- 9162 15 Nov, 2013 [facility] [place] [facility] [address] [id number] [place] [address]- 3704 15 Nov, 2013 [facility] [place] [facility] [address] [id number] [place] [address]- 7779 14 Nov, 2013 [facility] [place] [facility] [address] [id number] [place] [address]- 0268 14 Nov, 2013 [facility] [place] [facility] [address] [id number] [place] [address]- 8794 14 Nov, 2013 [facility] [place] [facility] [address] [id number] [place] [address]- 9391 14 Nov, 2013 [facility] [place] [facility] [address] [id number] [place] [address]- 9781 13 Nov, 2013 [facility] [place] [facility] [address] [id number], [place] [address]- 2878 13 Nov, 2013 [facility] [place] [facility] [address] [id number] [place] [address]- 8714 11 Nov, 2013 [facility] [place] [facility] [address] [id number], [place] [address]- 3300 11 Nov, 2013 [facility] [place] [facility] [address] [id number], [place] [address]- 5945 07 Nov, 2013 [facility] [place] [facility] [address] [id number], [place] [address]- 0861 07 Nov, 2013 [facility] [place] [facility] [address] [id number], [place] [address]- 1436 07 Nov, 2013 [facility] [place] [facility] [address] [id number], [place] [address]- 0748 07 Nov, 2013 [facility] [place] [facility] [address] [id number], [place] [address]- 5271 30 Oct, 2013 [facility] [place] [facility] [address] [id number], [place] [address]- 8948 30 Oct, 2013 [facility] [place] [facility] [address] [id number] [place] [address]- 6596 26 Oct, 2013 [facility] [place] [facility] [address] [id number] [place] [address]- 4766 26 Oct, 2013 [facility] [place] [facility] [address] [id number] [place] [address]- 5596 22 Oct, 2013 [facility] [place] [facility] [address] [id number] [place] [address]- 2130 22 Oct, 2013 [facility] [place] [facility] [address] [id number] [place] [address]- 7119 18 Oct, 2013 [facility] [place] [facility] [address] [id number] [place] [address]- 3863 18 Oct, 2013 [facility] [place] [facility] [address] [id number] [place] [address]- 6747 Oct, 2013 [facility] [place] [facility] [address] [id number] [place] [address]- 0828 18 Oct, 2013 [facility] [place] [facility] [address] [id number] [place] [address]- 5254 12 Oct, 2013 [facility] [place] [facility] [address] [id number] [place] [address]- 8955 12 Oct, 2013 [facility] [place] [facility] [address] [id number] [place] [address]- 8232 Oct, 2013 [facility] [place] [facility] [address] [id number], [place] [address]- 2545 Oct, 2013 [facility] [place] [facility] [address] [id number] [place] [address]- 2418 Sep, [facility] [place] [facility] [address] [id number] [place] [address]- 6887 Sep, [facility] [place] [facility] [address] [id number] [place] [address]- 8299 Sep, [facility] [place] [facility] [address] [id number] [place] [address]- 1278 Sep, [facility] [place] [facility] [address] [id number] [place] [address]- 9741 Sep, [facility] [place] [facility] [address] [id number] [place] [address]- 9394 Sep, [facility] [place] [facility] [address] [id number] [place] [address]- 8449 Sep, [facility] [place] [facility] [address] [id number] [place] [address]- 6095 Sep, [facility] [place] [facility] [address] [id number] [place] [address]- 0191 Sep, [facility] [place] [facility] [address] [id number] [place] [address]- 2575 Sep, [facility] [place] [facility] [address] [id number] [place] [address]- 0573 Sep, [facility] [place] [facility] [address] [id number] [place] [address]- 2708 Sep, [facility] [place] [facility] [address] [id number] [place] [address]- 7306 Sep, [facility] [place] [facility] [address] [id number] [place] [address]- 3718 Sep, [facility] [place] [facility] [address] [id number] [place] [address]- 3011 Sep, [facility] [place] [facility] [address] [id number] [place] [address]- 4633 Sep, [facility] [place] [facility] [address] [id number] [place] [address]- 8364 Sep, [facility] [place] [facility] [address] [id number] [place] [address]- 9652 Sep, [facility] [place] [facility] [address] [id number] [place] [address]- 6475 Aug, [facility] [place] [facility] [address] [id number] [place] [address]- 7569 Aug, [facility] [place] [facility] [address] [id number] [place] [address]- 9147 Aug, [facility] [place] [facility] [address] [id number] [place] [address]- 5346 Aug, [facility] [place] [facility] [address] [id number] [place] [address]- 2257 Aug, [facility] [place] [facility] [address] [id number] [place] [address]- 9703 Aug, [facility] [place] [facility] [address] [id number] [place] [address]- 3443 Jul, [facility] [place] [facility] [address] [id number] [place] [address]- 7320 Jul, [facility] [place] [facility] [address] [id number] [place] [address]- 4453 Jul, [facility] [place] [facility] [address] [id number] [place] [address]- 0146 Jul, [facility] [place] [facility] [address] [id number] [place] [address]- 0994 June, [facility] [place] [facility] [address] [id number] [place] [address]- 3626 June, [facility] [place] [facility] [address] [id number] [place] [address]- 8060 June, [facility] [place] [facility] [address] [id number] [place] [address]- 2683 June, [facility] [place] [facility] [address] [id number] [place] [address]- 6324 June, [facility] [place] [facility] [address] [id number] [place] [address]- 2282 June, [facility] [place] [facility] [address] [id number] [place] [address]- 1014 June, [facility] [place] [facility] [address] [id number] [place] [address]- 6072 May, [facility] [place] [facility] [address] [id number] [place] [address]- 1218 May, [facility] [place] [facility] [address] [id number] [place] [address]- 9542 May, [facility] [place] [facility] [address] [id number] [place] [address]- 4010 May, [facility] [place] [facility] [address] [id number] [place] [address]- 5225 May, [facility] [place] [facility] [address] [id number] [place] [address]- 5480 May, [facility] [place] [facility] [address] [id number] [place] [address] 31 Apr, 2013 [facility] [place] [facility] [address] [id number] [place] [address] 31 Apr, 2013 [facility] [place] [facility] [address] [id number] [place] [address] 28 Apr, 2013 [facility] [place] [facility] [address] [id number] [place] [address] 28 Apr, 2013 [facility] [place] [facility] [address] [id number] [place] [address] 14 Apr, 2013 [facility] [place] [facility] [address] [id number] [place] [address] 14 Apr, 2013 [facility] [place] [facility] [address] [id number] [place] [address]29 12 Apr, 2013 [facility] [place] [facility] [address] [id number] [place] [address]69 12 Apr, 2013 [facility] [place] [facility] [address] [id number] [place] [address] 10 Apr, 2013 [facility] [place] [facility] [address] [id number] [place] [address] Apr, [facility] [place] [facility] [address] [id number] [place] [address] Apr, [facility] [place] [facility] [address] [id number] [place] [address] Apr, [facility] [place] [facility] [address] [id number] [place] [address] Apr, [facility] [place] [facility] [address] [id number] [place] [address]697 Apr, [facility] [place] [facility] [address] [id number] [place] [address] Mar, [facility] [place] [facility] [address] [id number] [place] [address] Mar, [facility] [place] [facility] [address] [id number] [place] [address] Mar, [facility] [place] [facility] [address] [id number] [place] [address] Feb, [facility] [place] [facility] [address] [id number] [place] [address] Feb, [facility] [place] [facility] [address] [id number] [place] [address]- 77[address] Feb, [facility] [place] [facility] [address] [id number] [place] [address] Feb, [facility] [place] [facility] [address] [id number] [place] [address] Feb, [facility] [place] [facility] [address] [id number] [place] [address]- [address] Feb, [facility] [place] [facility] [address] [id number] [place] [address] Feb, [facility] [place] [facility] [address] [id number] [address] Feb, [facility] [address] [id number] [place] [address] Feb, [facility] [address] [id number] [place] [address] Feb, [facility] [address] [id number] [place] [address] Jan, [facility] [address] [id number] [place] [address] Jan, [facility] [address] [id number] [place] [address] Jan, [facility] [address] [id number] [place] [address] Jan, [facility] [address] [id number] [place] [address] 12[address] Jan, [facility] [address] [id number] [place] [address] 20[address] Jan, [facility] [address] [id number] [place] [address] Jan, [facility] [address] [id number] [place] [address]- [address] Jan, [facility] [address] [id number] [place] [address] Jan, [facility] [place] [facility] [address] [id number] [place] [address] 1392 19 Jan, 2013 [facility] [place] [facility] [address] [id number] [place] [address]- [address]265 17 Jan, 2013 [facility] [place] [facility] [address] [id number] [place] [address] 17 Jan, 2013 [facility] [place] [facility] [address] [facility] [id number] [place] [address] 16 Jan, 2013 [facility] [place] [facility] [address] [id number] [place] [address] Jan, [facility] [address] [id number] [place] [address]- [address] Jan, [facility] [place] [facility] [address] [id number] [place] [address] Jan, [facility] [place] [facility] [address] [id number] [place] [address] Jan, [facility] [place] [facility] [address] [id number] [place] [address]- 1571 Jan, [facility] [place] [facility] [address] [id number] [place] [address]- [address] Jan, [facility] [place] [facility] [address] [id number] [place] [address] Jan, [facility] [place] [facility] [address] [id number] [place] [address] Jan, [facility] [place] [facility] [address] [id number] [place] [address] 240[address] Dec, [facility] [place] [facility] [address] [id number] [place] [address]- [address] Dec, [facility] [place] [facility] [address] [id number] [place] [address] 134[address] Dec, [facility] [place] [facility] [address] [id number] [place] [address]687 Dec, [facility] [place] [facility] [address] [id number] [place] [address] Dec, [facility] [place] [facility] [address] [id number] [place] [address] Dec, [facility] [place] [facility] [address] [id number] [place] [address] Dec, [facility] [place] [facility] [address] [id number] [place] [address] 3887 Dec, [facility] [place] [facility] [address] [id number] [place] [address] 2433 Dec, [facility] [place] [facility] [address] [id number] [place] [address] 1861 Dec, [facility] [place] [facility] [address] [id number] [place] [address] Nov, [facility] [place] [facility] [address] [id number] [place] [address] 2558 Nov, [facility] [place] [facility] [address] [id number] [place] [address]- 0855 Nov, [facility] [place] [facility] [address] [id number] [place] [address]- 1493 Nov, [facility] [place] [facility] [address] [id number] [place] [address]- 8314 Nov, [facility] [place] [facility] [address] [id number], [place] [address] 8845 Nov, [facility] [place] [facility] [address] [id number] [place] [address]- 4595 Nov, [facility] [place] [facility] [address] [id number], [place] [address]- 7693 Nov, [facility] [place] [facility] [address] [id number], [place] [address]- 4274 Nov, [facility] [place] [facility] [address] [id number], [place] [address] 9[address] Nov, [facility] [place] [facility] [address] [id number] [place] [address]- 3674 Oct, [facility] [place] [facility] [address] [id number], [place] [address] 8368 Oct, [facility] [place] [facility] [address] [id number], [place] [address]- 8579 Oct, [facility] [place] [facility] [address] [id number] [place] [address] 2548 Oct, [facility] [address] [id number] [place] [address]- 8234 Oct, [facility] [place] [facility] [address] [id number] [place] [address] 2546 Sep, [facility] [address] [id number] [place] [address]- 5006 Sep, [facility] [place] [facility] [address] [id number] [place] [address]- 9292 Aug, [facility] [address] [id number] [place] [address]- 8601 Aug, [facility] [address] [id number] [place] [address]- 5998 Aug, [facility] [address] [id number] [place] [address]- 3637 Aug, [facility] [address] [id number] [place] [address]- 0586 Aug, [facility] [address] [id number] [place] [address]- 2532 Aug, [facility] [address] [id number] [place] [address]- 6840 Aug, [facility] [address] [id number] [place] [address]- 1129 Jul, [facility] [place] [facility] [address] [id number] [place] [address]- 2543 Jul, [facility] [place] [facility] [address] [id number] [place] [address]- 5388 June, [facility] [place] [facility] [address] [id number] [place] [address]- 0802 June, [facility] [place] [facility] [address] [id number] [place] [address]- 0341 June, [facility] [place] [facility] [address] [id number] [place] [address]- 1857 June, [facility] [address] [id number] [place] [address]- 0401 June, [facility] [address] [id number] [place] [address]- 6871 June, [facility] [address] [id number] [place] [address]- 1753 June, [facility] [address] [id number] [place] [address]- 7912 June, [facility] [address] [id number] [place] [address]- 7545 June, [facility] [address] [id number] [place] [address]- 7074 June, [facility] [address] [id number] [place] [address]- 2832 June, [facility] [address] [id number] [place] [address]- 6167 May, [facility] [address] [id number] [place] [address]- 9067 May, [facility] [address] [id number] [place] [address]- 4845 May, [facility] [address] [id number] [place] [address]- 2974 May, [facility] [address] [id number] [place] [address]- 2509 Apr, [facility] [place] [facility] [address] [id number] [place] [address]- 3669 Apr, [facility] [address] [id number] [place] [address]- 7513 Apr, [facility] [address] [id number] [place] [address]- 0456 Mar, [facility] [address] [id number] [place] [address]- 2272 Mar, [facility] [address] [id number] [place] [address]- 4146 Feb, [facility] [address] [id number] [place] [address]- 1804 Feb, [facility] [address] [id number] [place] [address]- 6736 Feb, [facility] [address] [id number] [place] [address]- 2753 Feb, [facility] [address] [id number] [place] [address]- 7213 Feb, [facility] [address] [id number] [place] [address]- 5960 Feb, [facility] [address] [id number] [place] [address]- 5074 Feb, [facility] [address] [id number] [place] [address]- 0836 Jan, [facility] [address] [id number] [place] [address]- 1698 Jan, [facility] [address] [id number] [place] [address]- 3610 Jan, [facility] [place] [facility] [address] [id number] [place] [address]- 9419 Jan, [facility] [place] [facility] [address] [id number] [place] [address]- 9860 Jan, [facility] [place] [facility] [address] [id number] [place] [address]- 9263 Jan, [facility] [place] [facility] [address] [id number] [place] [address]- 1687 Jan, [facility] [place] [facility] [address] [id number] [place] [address]- 3209 10 Jan, 2012 [facility] [place] [facility] [address] [id number] [place] [address]- 7092 Jan, [facility] [place] [facility] [address] [id number] [place] [address]- 4656 Jan, [facility] [place] [facility] [address] [id number] [place] [address]- 8183 Jan, [facility] [place] [facility] [address] [id number] [place] [address]- 1300 Dec, [facility] [place] [facility] [address] [id number] [place] [address]- 4606 Dec, [facility] [place] [facility] [address] [id number] [place] [address]- 6446 Dec, [facility] [place] [facility] [address] [id number] [place] [address]- 6885 Dec, [facility] [place] [facility] [address] [id number] [place] [address]- 1772 Nov, [facility] [place] [facility] [address] [id number] [place] [address]- 4035 Nov, [facility] [place] [facility] [address] [id number] [place] [address]- 6884 08 Nov, 2011 [facility] [place] [facility] [address] [id number] [place] [address]- 2977 27 Oct, 2011 [facility] [place] [facility] [address] [id number] [place] [address]- 2547 24 Sep2011 [facility] [place] [facility] [address] [id number] [place] [address]- 7949 21 Sep2011 [facility] [place] [facility] [address] [id number] [place] [address]- 7196 10 Oct, 2011 [facility] [place] [facility] [address] [id number] [place] [address]- 0046 07 Oct, 2011 [facility] [place] [facility] [address] [id number] [place] [address]- 8157 04 Oct, 2011 [facility] [place] [facility] [address] [id number] [place] [address]- 1326 Oct, [facility] [place] [facility] [address] [id number] [place] [address]- 9473 Sep, [facility] [place] [facility] [address] [id number] [place] [address]- 5196 Sep, [facility] [place] [facility] [address] [id number] [place] [address]- 1331 Sep, [facility] [place] [facility] [address] [id number] [place] [address]- 8361 Sep, [facility] [place] [facility] [address] [id number] [place] [address]- 4324 Sep, [facility] [place] [facility] [address] [id number] [place] [address]- 1392 Aug, [facility] [place] [facility] [address] [id number] [place] [address]- 0517 Aug, [facility] [place] [facility] [address] [id number] [place] [address]- 4066 Aug, [facility] [place] [facility] [address] [id number] [place] [address]- 1672 16 Aug, 2011 [facility] [place] [facility] [address] [id number] [place] [address]- 3282 Aug, [facility] [place] [facility] [address] [id number] [place] [address]- 8875 Aug, [facility] [place] [facility] [address] [id number] [place] [address]- 4056 Aug, [facility] [place] [facility] [address] [id number] [place] [address]- 6944 Jul, [facility] [place] [facility] [address] [id number] [place] [address]- 8849 26 Jul, 2011 [facility] [place] [facility] [address] [id number] [place] [address]- 4499 Jul, [facility] [place] [facility] [address] [id number] [place] [address]- 5224 Jul, [facility] [place] [facility] [address] [id number] [place] [address]- 0939 Jul, [facility] [place] [facility] [address] [id number] [place] [address]- 4938 Jul, [facility] [place] [facility] [address] [id number] [place] [address]- 5722 07 Jul, 2011 [facility] [place] [facility] [address] [id number] [place] [address]- 2204 06 Jul, 2011 [facility] [place] [facility] [address] [id number] [place] [address]- 8834 05 Jul, 2011 [facility] [place] [facility] [address] [id number] [place] [address]- 9187 June, [facility] [place] [facility] [address] [id number] [place] [address]- 3052 June, [facility] [place] [facility] [address] [id number] [place] [address]- 7958 June, [facility] [place] [facility] [address] [id number] [place] [address]- 2078 June, [facility] [place] [facility] [address] [id number] [place] [address]- 8545 June, [facility] [place] [facility] [address] [id number] [place] [address]- 8462 June, [facility] [place] [facility] [address] [id number] [place] [address]- 6341 June, [facility] [place] [facility] [address] [id number] [place] [address]- 5688 June, [facility] [place] [facility] [address] [id number] [place] [address]- 8896 25 May, 2011 [facility] [place] [facility] [address] [id number] [place] [address]- 4116 23 May, 2011 [facility] [place] [facility] [address] [id number] [place] [address]- 0696 May, [facility] [place] [facility] [address] [id number] [place] [address]- 3176 May, [facility] [place] [facility] [address] [id number] [place] [address]- 9570 May, [facility] [place] [facility] [address] [id number] [place] [address]- 3831 May, [facility] [place] [facility] [address] [id number] [place] [address]- 1864 May, [facility] [place] [facility] [address] [id number] [place] [address]- 2900 Apr, [facility] [place] [facility] [address] [id number] [place] [address]- 1999 Apr, [facility] [place] [facility] [address] [id number] [place] [address]- 9810 Apr, [facility] [place] [facility] [address] [id number] [place] [address]- 8162 Apr, [facility] [place] [facility] [address] [id number] [place] [address]- 4127 Apr, [facility] [place] [facility] [address] [id number] [place] [address]- 0385 Apr, [facility] [place] [facility] [address] [id number] [place] [address]- 5910 Apr, [facility] [place] [facility] [address] [id number] [place] [address]- 0716 Mar, [facility] [place] [facility] [address] [id number] [place] [address]- 1846 Mar, [facility] [address] [id number] [place] [address]- 3166 14 Mar, 2011 [facility] [address] [id number] [place] [address]- 6596 Mar, [facility] [address] [id number] [place] [address]- 3966 Mar, [facility] [address] [id number] [place] [address]- 6826 Mar, [facility] [address] [id number] [place] [address]- 9178 Mar, [facility] [address] [id number] [place] [address]- 3667 Feb, [facility] [address] [id number] [place] [address]- 1929 Feb, [facility] [address] [id number] [place] [address]- 8872 Feb, [facility] [address] [id number] [place] [address]- 2293 Feb, [facility] [address] [facility] [id number] [place] [address]- 0686 Feb, [facility] [address] [id number] [place] [address]- 9506 Feb, [facility] [address] [id number], [place] [address]- 8108 Feb, [facility] [place] [facility] [address] [id number] [place] [address]- 8225 Feb, [facility] [place] [facility] [address] [id number] [place] [address]- 6658 Feb, [facility] [place] [facility] [address] [id number] [place] [address]- 1586 Feb, [facility] [place] [facility] [address] [id number] [place] [address]- 9403 27 Jan, 2011 [facility] [place] [facility] [address] [id number] [place] [address]- 5576 Jan, [facility] [place] [facility] [address] [id number] [place] [address] 2546 Jan, [facility] [place] [facility] [address] [id number] [place] [address]- 5936 Jan, [facility] [place] [facility] [address] [id number] [place] [address] 254 Jan, [facility] [place] [facility] [address] [id number] [place] [address]- 0786 Jan, [facility] [place] [facility] [address] [id number] [place] [address]- 1976 15 Jan, 2011 [facility] [place] [facility] [address] [id number] [place] [address]- 0707 15 Jan, 2011 [facility] [place] [facility] [address] [id number] [place] 3038 Jan, [facility] [place] [facility] [address] [id number] [place] [address]- 5206 Jan, [facility] [place] [facility] [address] [id number] [place] [address]- 2115 Jan, [facility] [place] [facility] [address] [id number] [place] [address]- 6743 17 Dec, 2010 [facility] [place] [facility] [address] [id number] [place] [address]- 4820 17 Dec, 2010 [facility] [place] [facility] [address] [id number] [place] [address]- 3616 17 Dec, 2010 [facility] [place] [facility] [address] [id number] [place] [address]- 3376 16 Dec, 2010 [facility] [place] [facility] [address] [id number] [place] [address]- 7370 14 Dec, 2010 [facility] [place] [facility] [address] [id number] [place] [address]- 4490 09 Dec, 2010 [facility] [place] [facility] [address] [id number] [place] [address]- 4014 08 Dec, 2010 [facility] [place] [facility] [address] [id number] [place] [address]- 5663 Dec, [facility] [place] [facility] [address] [id number] [place] [address]- 7653 Dec, [facility] [place] [facility] [address] [id number] [place] [address]- 4366 Nov, [facility] [place] [facility] [address] [id number] [place] [address]- 8260 Nov, [facility] [place] [facility] [address] [id number] [place] [address]- 8608 Nov, [facility] [place] [facility] [address] [id number] [place] [address]- 8808 Nov, [facility] [place] [facility] [address] [id number] [place] [address]- 4326 24 Nov, 2010 [facility] [place] [facility] [address] [id number] [place] [address]- 9818 Nov, [facility] [place] [facility] [address] [id number], [place] [address]- 6071 Aug, [facility] [place] [facility] [address] [id number], [place] [address]- 6860 Feb, [facility] [place] [facility] [address] [id number] [place] [address]- 6516 Jan, [facility] [place] [facility] [address] [id number], [place] [address]- 3880 Jan, [facility] [place] [facility] [address] [id number] [place] [address]- 3506 Jan, [facility] [place] [facility] [address] [id number], [place] [address]- 4036 Jan, [facility] [id number], [place] [address]- 2023 Jan, [facility] [id number], [place] [address]- 9592 Dec, [facility] [id number], [place] [address]- 7338 Dec, [facility] [id number], [place] [address]- 5855 Dec, [facility] [id number] [place] [address]- 4813 Dec, [facility] [id number], [place] [address]- 4018 Nov, [facility] [id number], [place] [address]- 2291 Nov, [facility] [id number], [place] [address]- 2959 Nov, IMMUNIZATIONS No Known Immunizations SOCIAL HISTORY Never Assessed REASON FOR VISIT wt loss Pt here to discuss weight loss, also c/o sore on L heel that is causing L ankle swelling for a month [facility] PLAN OF CARE Activity Details Follow Up Regular appt Reason: VITAL SIGNS Height 68 in 2017-08-19 Weight 216 lbs 2017-08-19 Temperature 98.2 degrees Fahrenheit 2017-08-19 Heart Rate 102 bpm 2017-08-19 Respiratory Rate 20 2017-08-19 BMI 32.84 kg/m2 2017-08-19 Blood pressure systolic 120 mmHg 2017-08-19 Blood pressure diastolic 76 mmHg 2017-08-19 MEDICATIONS Medication Instructions Dosage Frequency Start Date End Date Duration Status Promethazine HCl 25 MG Orally every 12 hrs 1 tablet as needed 12h 30 Active Fentanyl 50 MCG/HR Transdermal 48 hrs 1 patch to skin 14 Jul, 2017 30 days Active Lyrica 150 MG Orally 3 times a day 1 capsule 8h 28 days Active Tizanidine HCl 4 MG Orally Three times a day 1 tablet as needed 8h May, Active Pantoprazole Sodium 40 mg Orally Once a day 1 tablet 24h 30 days Active Klonopin 1 MG Orally 3 times a day 1 tablet 8h 30 days Active Abilify 2 MG Orally Once a day 2 tablets 24h 30 days Not-Taking Furosemide 20 mg Orally Once a day [...] as needed one time 24h 30 Active Saxenda (Dose Escalation) 18 mg/3 mL Subcutaneous Once a day 0.6 mg QD x 7 days, 1.2 mg QD x 7 days, 1.8 mg QD x 7 days, 2.4 mg QD x 7 days, then 3 mg QD ( GOAL) 24h Aug, Active Aspirin 81 MG Orally Once a day 1 tablet 24h Active RESULTS No Results PROCEDURES No Known [...]
--- OUTSIDE RECORDS SUMMARY | 2018-01-13 22:03 | XMS REPORT ---
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 Active 277634738 Problem Hypertension I10 Active 25753972 Problem Arthritis M19.90 Active 0764378 Problem 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 Active 29711109 Problem Anxiety F41.9 Active 36838158 Problem Unspecified episodic mood disorder F39 Active 45401591 Problem Left hip pain M25.552 Active 36913146 ALLERGIES No Information ENCOUNTERS Encounter Location Date Diagnosis [facility] [address] [facility] [id number] [address] Nov, [facility] [id number] [address] Oct, [facility] [address] [facility] [id number] [address] Sep, Chronic hepatitis C without hepatic coma B18.2 [facility] [id number] [place] [address] 85470- 0248 Sep, Gastroesophageal reflux disease, esophagitis presence not specified K21.9 and Other chronic pain G89.29 [facility] [id number] [place] [address] 88204- 0032 Sep, [facility] [address] [address] Sep, [facility] [id number] [place] [address] 35670- 9796 Sep, Chronic hepatitis C without hepatic coma B18.2 [facility] [id number] [place] [address] 29553- 9047 Sep, 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 [facility] [id number] [place] [address] 04809- 5063 Sep, Arthritis M19.90 [facility] [id number] [place] [address] 43761- 5901 Sep, [facility] [id number] [place] [address] 60706- 6046 Sep, Unspecified episodic mood disorder F39 [facility] [id number] [place] [address] 78297- 5076 Aug, [facility] [id number] [place] [address] [id number] Aug, [facility] [id number] [place] [address] 56292- 4573 Aug, Arthritis M19.90 [facility] [id number] [place] [address] 34923- 6571 Aug, [facility] [id number] [place] [address] 53371- 9444 Aug, Obesity (BMI 30.0-34.9) E66.9 ; Unspecified episodic mood disorder F39 and Hypertension I10 [facility] [address] [address] Aug, Unspecified episodic mood disorder F39 [facility] [id number] [address] 0[address] Aug, [facility] [id number] [place] [address] 83815- 6999 Jul, Unspecified episodic mood disorder F39 [facility] [id number] [place] [address] 66133- 7056 Jul, [facility] [id number] [place] [address] 45441- 9132 Jul, Arthritis M19.90 [facility] [id number] [place] [address] 69056- 7245 Jul, Left hip pain M25.552 ; Hypertension I10 ; Other obesity due to excess calories E66.09 and Body mass index (BMI) of 34.0-34.9 in adult Z68.34 [facility] [id number] [place] [address] 60295- 1304 Jul, Unspecified episodic mood disorder F39 [facility] [address] [address] June, Gastroesophageal reflux disease, esophagitis presence not specified K21.9 [facility] [id number] [address] 0[address] June, [facility] [address] [address] 39[address] June, [facility] [id number] [place] [address] 79960- 4486 June, Arthritis M19.90 [facility] [address] [address] June, [facility] [id number] [address] 8196 June, [facility] [id number] [place] [address] 12744- 5633 June, Unspecified episodic mood disorder F39 [facility] [address] [address] 8525 May, Unspecified episodic mood disorder F39 [facility] [id number] [place] [address] 53181- 0040 May, [facility] [id number] [place] [address] 85712- 4302 May, Arthritis M19.90 [facility] [id number] [place] [address] 55237 -1306 May, Dysuria R30.0 ; Abscess L02.91 and Acute cystitis without hematuria N30.00 [facility] [address] [place] [address] 09713- 1230 May, Other disorder of impulse control F63.89 ; Unspecified episodic mood disorder F39 ; Combined drug dependence excluding opioids, 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 ; Anxiety F41.9 and Other psychoactive substance dependence, 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 [facility] [id number] [place] [address] 31389- 4514 May, [facility] [id number] [place] [address] 63226- 8897 May, Other disorder of impulse control F63.89 ; Unspecified episodic mood disorder F39 ; Combined drug dependence excluding opioids, 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 ; Other psychoactive substance dependence, 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 and Anxiety F41.9 [facility] [id number] [place] [address] 35795- 8179 May, Other chronic pain G89.29 ; Left hip pain M25.552 ; Hypertension I10 ; 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, 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 and Unspecified episodic mood disorder F39 [facility] [id number] [place] [address] 70696- 2496 Apr, [facility] [id number] [place] [address] 96588 -0141 Apr, Neck pain M54.2 ; Left hip pain M25.552 and Fall, initial encounter W19.XXXA [facility] [id number] [place] [address] 78602- 1361 Apr, Unspecified episodic mood disorder F39 ; Combined drug dependence excluding opioids, 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 ; Anxiety F41.9 ; Other psychoactive substance dependence, 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 and Other disorder of impulse control F63.89 [facility] [id number] [place] [address] 29049- 7076 Apr, [facility] [id number] [place] [address] 32771- 8936 Apr, Arthritis M19.90 and Unspecified episodic mood disorder F39 [facility] [id number] [place] [address] 59470- 3283 Apr, Unspecified episodic mood disorder F39 [facility] [id number] [place] [address] 62924- 2015 Apr, [facility] [id number] [place] [address] 55323- 3474 Apr, [facility] [id number] [place] [address] 03380- 2288 Apr, Unspecified episodic mood disorder F39 ; Combined drug dependence excluding opioids, 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 ; Anxiety F41.9 ; Other psychoactive substance dependence, 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 and Other disorder of impulse control F63.89 [facility] [id number] [place] [address] 88888- 1119 Mar, Unspecified episodic mood disorder F39 [facility] [id number] [place] [address] 28125- 3883 Mar, Gastroesophageal reflux disease, esophagitis presence not specified K21.9 [facility] [id number] [place] [address] 02422- 7402 Mar, Arthritis M19.90 and Unspecified episodic mood disorder F39 [facility] [id number] [place] [address] 87235- 0816 Feb, [facility] [id number] [place] [address] 82461- 3945 Feb, [facility] [id number] [place] [address] 69424- 4259 Feb, [facility] [id number] [place] [address] 02145- 1942 Feb, Arthritis M19.90 [facility] [id number] [place] [address] 77750- 6601 Feb, Non-pressure chronic ulcer of right calf, 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 ; Unspecified episodic mood disorder F39 and Left hip pain M25.552 [facility] [id number] [place] [address] 38227- 0938 Feb, [facility] [id number] [place] [address] 17738- 2184 Feb, [facility] [id number] [place] [address] 72518- 4650 Jan, Arthritis M19.90 [facility] [id number] [place] [address] 76030- 9901 Jan, Left hip pain M25.552 and Non-pressure chronic ulcer of right calf, 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 [facility] [id number] [place] [address] 03907- 7210 Jan, Chronic hepatitis C without hepatic coma B18.2 [facility] [id number] [place] [address] 18600- 8029 Jan, Encounter for immunization Z23 ; Venous insufficiency ( chronic) (peripheral) I87.2 ; Non-pressure chronic ulcer of unspecified calf limited to breakdown of skin L97.201 and Gastroesophageal reflux disease, esophagitis presence not specified K21.9 [facility] [id number] [place] [address] 86395 2546 Jan, [facility] [id number] [place] [address] 07783- 4606 Jan, Chronic hepatitis C without hepatic coma B18.2 and Encounter for immunization Z23 [facility] [id number] [place] [address] 84470 2546 Jan, Arthritis M19.90 [facility] [address] 58257- 0096 Jan, [facility] [id number] [place] [address] 41747- 8105 Dec, [facility] [id number] [place] [address] 71782- 1203 Dec, Unspecified episodic mood disorder F39 [facility] [id number] [place] [address] 73756 2546 Dec, Arthritis M19.90 [facility] [id number] [place] [address] 53064- 6696 Dec, Arthritis M19.90 [facility] [id number] [place] [address] 46066- 6626 Nov, [facility] [id number] [place] [address] 37930- 254 Nov, [facility] [id number] [place] [address] 51719- 2546 Nov, Other psychoactive substance dependence, 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 ; 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, 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 and Chronic hepatitis C without hepatic coma B18.2 [facility] [id number] [place] [address] 02238- 8593 Nov, Arthritis M19.90 [facility] [address] [address] Oct, Partial thickness burn of abdomen, initial encounter T21.22XA [facility] [address] [address]- 3298 Oct, [facility] [id number] [place] [address] 41057- 0404 Sep, Arthritis M19.90 [facility] [id number] [place] [address] 28076- 9744 Sep, [facility] [id number] [place] [address] 13997- 3508 Sep, [facility] [id number] [place] [address] 97180- 7802 Sep, Unspecified episodic mood disorder F39 ; Chronic hepatitis C without hepatic coma B18.2 and Left hip pain M25.552 [facility] [id number] [place] [address] 33986- 7630 Sep, Arthritis M19.90 and Left hip pain M25.552 [facility] [id number] [place] [address] 41995- 9474 Aug, [facility] [id number] [place] [address] 79359- 7650 Aug, [facility] [id number] [place] [address] 57438- 2618 Aug, Chronic hepatitis C without hepatic coma B18.2 [facility] [id number] [place] [address] 80939- 7290 Aug, [facility] [id number] [place] [address] 24128- 7894 Aug, Chronic hepatitis C without hepatic coma B18.2 [facility] [id number] [place] [address] 05024- 8418 Aug, 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, 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 [facility] [id number] [place] [address] 89639- 1299 Aug, [facility] [id number] [place] [address] 30133- 3044 Aug, Chronic hepatitis C without hepatic coma B18.2 and Hypertension I10 [facility] [id number] [place] [address] 89727- 0391 Jul, [facility] [id number] [place] [address] 75144- 6178 June, [facility] [id number] [place] [address] 90574- 1770 Apr, Fibromyalgia M79.7 ; Left hip pain M25.552 and Decubitus ulcer of sacral region, stage 1 L89.151 [facility] [id number] [place] [address] 96546- 7574 Apr, [facility] [id number] [place] [address] 59433- 8576 Apr, [facility] [id number] [place] [address] 81794- 5607 Feb, [facility] [id number] [place] [address] 65183- 3072 Dec, Anxiety F41.9 ; Combined drug dependence excluding opioids, 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 and Unspecified episodic mood disorder F39 [facility] [id number] [place] [address] 38720- 2981 Dec, [facility] [id number] [place] [address] 02576- 9242 Nov, [facility] [id number] [place] [address] 56132- 3336 Nov, [facility] [id number] [place] [address] 80966- 6578 Nov, Other disorder of impulse control F63.89 and Anxiety F41.9 [facility] [id number] [place] [address] 41471- 2086 Oct, [facility] [id number] [place] [address] 55421 -7593 14 Oct, 2015 Open wound of left thigh, initial encounter S71.102A [facility] [id number] [place] [address] 89750- 2394 Oct, [facility] [id number] [place] [address] 23067- 4968 Sep, Unspecified episodic mood disorder F39 ; Other disorder of impulse control 312.39 ; Combined drug dependence excluding opioids, 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 and Anxiety F41.9 [facility] [id number] [place] [address] 42443- 0813 Sep, Other disorder of impulse control 312.39 ; Combined drug dependence excluding opioids, 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 ; Anxiety F41.9 and Unspecified episodic mood disorder F39 [facility] [id number] [place] [address] 04868- 2434 Sep, Other chronic pain G89.29 [facility] [id number] [place] [address] 14608- 2284 Sep, [facility] [address] [place] [address] 37125- 7635 Sep, [facility] [id number] [place] [address] 80244- 6985 Aug, [facility] [id number] [place] [address] 62673- 2672 Aug, [facility] [id number] [place] [address] 94351- 1648 Aug, [facility] [id number] [place] [address] 85958- 6657 Jul, [facility] [id number] [address]- 7559 Jul, [facility] [id number] [place] [address] 31522- 8534 Jul, [facility] [id number] [place] [address] 02521- 8673 Jul, Arthritis M19.90 ; Chronic hepatitis C without hepatic coma B18.2 and Left hip pain M25.552 [facility] [id number] [place] [address] 55280- 8041 Jul, Left knee pain M25.562 [facility] [id number] [place] [address] 92884- 8120 Jul, Combined drug dependence excluding opioids, 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 ; Anxiety F41.9 ; Other disorder of impulse control 312.39 and Unspecified episodic mood disorder F39 [facility] [id number] [place] [address] 36357- 7629 Jul, Left knee pain M25.562 [facility] [id number] [place] [address] 32749- 0160 Jul, Left knee pain M25.562 and Left hip pain M25.552 [facility] [id number] [place] [address] 04616- 0914 Jul, [facility] [id number] [place] [address] 00996- 1879 June, [facility] [address] [place] [address] 21412- 3298 June, Combinations of drug dependence excluding opioid type drug, unspecified abuse 304.80 ; Other disorder of impulse control 312.39 ; Unspecified episodic mood disorder F39 and Anxiety F41.9 [facility] [address] [place] [address] 59911- 0144 June, Other fatigue R53.83 ; Headache R51 and Left knee pain M25.562 [facility] [address] [address]- 7025 June, Unspecified episodic mood disorder F39 ; Combinations of drug dependence excluding opioid type drug, unspecified abuse 304.80 ; Other disorder of impulse control 312.39 and Anxiety F41.9 [facility] [address] [address]- 3112 June, Anxiety F41.9 [facility] [id number] [place] [address] 77825- 5721 June, Pain in left knee M25.562 [address] [facility] [id number] [place] [address] 55099- 1630 June, Anxiety F41.9 and Combinations of drug dependence excluding opioid type drug, unspecified abuse 304.80 [facility] [id number] [place] [address] 10244- 4361 June, Unspecified episodic mood disorder 296.90 ; Combinations of drug dependence excluding opioid type drug, unspecified abuse 304.80 and Other disorder of impulse control 312.39 [facility] [id number] [place] [address] 07287- 5707 June, Anxiety F41.9 and Unspecified episodic mood disorder 296.90 [facility] [address] [place] [address] 30281- 9664 May, Arthritis M19.90 [facility] [id number] [place] [address] 63665- 2507 May, Arthritis M19.90 [facility] [address] [place] [address] 36119- 1524 May, Anxiety F41.9 ; Combinations of drug dependence excluding opioid type drug, unspecified abuse 304.80 and Other disorder of impulse control 312.39 [facility] [address] [address]- 1214 May, Left knee pain M25.562 [facility] [id number] [place] [address] 70945- 0406 May, Arthritis M19.90 [facility] [address] [address]- 0470 May, [facility] [address] [address]- 8318 May, Anxiety F41.9 ; Unspecified episodic mood disorder 296.90 ; Combinations of drug dependence excluding opioid type drug, unspecified abuse 304.80 and Other disorder of impulse control 312.39 [facility] [address] [address]- 1059 May, Left knee pain M25.562 [facility] [address] [address]- 1927 May, Left knee pain M25.562 ; Combinations of drug dependence excluding opioid type drug, unspecified abuse 304.80 ; Other disorder of impulse control 312.39 ; Fibromyalgia M79.7 ; Hypertension I10 ; Unspecified episodic mood disorder 296.90 and Left hip pain M25.552 [facility] [id number] [address]- 3971 May, Unspecified episodic mood disorder 296.90 ; Other disorder of impulse control 312.39 ; Combinations of drug dependence excluding opioid type drug, unspecified abuse 304.80 and Anxiety F41.9 [facility] [id number] [address]- 2450 May, Left knee pain M25.562 ; Combinations of drug dependence excluding opioid type drug, unspecified abuse 304.80 ; Other disorder of impulse control 312.39 ; Fibromyalgia M79.7 ; Hypertension I10 ; Unspecified episodic mood disorder 296.90 and Left hip pain M25.552 [facility] [id number] [address]- 4120 May, Anxiety F41.9 ; Unspecified episodic mood disorder 296.90 ; Other disorder of impulse control 312.39 and Combinations of drug dependence excluding opioid type drug, unspecified abuse 304.80 [facility] [address] [place] [address] 77036- 7711 30 Apr, 2015 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 and 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, implants and grafts, initial encounter T84.82XA [facility] [id number] [place] [address] 34896- 1861 28 Apr, 2015 Anxiety F41.9 ; Unspecified episodic mood disorder 296.90 ; Combinations of drug dependence excluding opioid type drug, unspecified abuse 304.80 and Other disorder of impulse control 312.39 [facility] [id number] [place] [address] 55552- 4031 25 Apr, 2015 Arthritis M19.90 [facility] [id number] [place] [address] 85320- 2180 21 Apr, 2015 Anxiety F41.9 ; Unspecified episodic mood disorder 296.90 ; Combinations of drug dependence excluding opioid type drug, unspecified abuse 304.80 and Other disorder of impulse control 312.39 [facility] [id number] [place] [address] 37866- 8255 17 Apr, 2015 Arthritis M19.90 [facility] [id number] [place] [address] 40201- 7403 15 Apr, 2015 [facility] [id number] [place] [address] 21922- 8815 15 Apr, 2015 [facility] [id number] [place] [address] 99186- 9335 14 Apr, 2015 Unspecified episodic mood disorder 296.90 ; Combinations of drug dependence excluding opioid type drug, unspecified abuse 304.80 ; Other disorder of impulse control 312.39 and Anxiety F41.9 [facility] [id number] [place] [address] 32675 -7780 11 Apr, 2015 Left knee pain M25.562 [facility] [id number] [place] [address] 89630- 6031 11 Apr, 2015 [facility] [id number] [place] [address] 79263- 3336 Mar, Unspecified episodic mood disorder 296.90 ; Anxiety F41.9 ; Other disorder of impulse control 312.39 and Combinations of drug dependence excluding opioid type drug, unspecified abuse 304.80 [facility] [id number] [place] [id number] 25 Mar, 2015 Hyperpigmentation L81.9 [place] [address] [place] [id number] [place] [id number] [address] Mar, Arthritis M19.90 and Anxiety F41.9 [place] [id number] [place] [address] 01325- 8813 Mar, Unspecified episodic mood disorder F39 ; Combined drug dependence excluding opioids, 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 ; Other disorder of impulse control F63.89 and Anxiety F41.9 [place] [id number] [place] [address] 60846- 8424 12 Mar, 2015 Well woman exam Z01.419 ; Other fatigue R53.83 ; Hot flashes N95.1 ; Depression, unspecified depression type F32.9 and Body mass index (BMI) of 23.0-23.9 in adult Z68.23 [place] [id number] [place] [id number] 2002 11 Mar, 2015 Unspecified episodic mood disorder 296.90 ; Other disorder of impulse control 312.39 and Anxiety F41.9 [place] [id number] [place] [address] 46403- 5858 11 Mar, 2015 Well woman exam Z01.419 [...] of breast Z12.39 and Limited mobility Z74.09 [place] [address] [address]- 8854 10 Mar, 2015 [place] [address] 31530- 1191 Mar, [place] [address] 79796- 9583 Mar, [address] [address]- 8683 03 Mar, 2015 Other specified complication of internal orthopedic prosthetic devices, implants and grafts, initial encounter T84.89XA ; Fibromyalgia M79.7 ; Hypertension I10 ; Anemia D64.9 ; Insomnia G47.00 ; Anxiety F41.9 ; Arthritis M19.90 and Migraine G43.[address] [address]70- 4508 Mar, [address] 22265- 3296 Feb, [address] 80603- 4326 Feb, Arthritis M19.90 and Anxiety F41.9 [place] [address] 85567- 5868 Feb, [place] [address] 93945- 9245 Feb, [address] 67806- 4796 Feb, [place] [address] 77200- 5071 Feb, [place] [address] 14335- 1473 Feb, Anxiety F41.9 [facility] [id number] [place] [address] 87718- 0662 15 Feb, 2015 [facility] [id number] [place] [address] 81545- 8612 Feb, [facility] [id number] [place] [address] 77847- 6087 Feb, 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 and Fibromyalgia M79.7 [facility] [id number] [place] [address] 17191- 8842 Feb, [facility] [id number] [place] [address] 35754- 3317 Jan, [facility] [id number] [place] [address] 03428- 5115 Jan, [facility] [id number] [place] [address] 36644- 7767 Jan, [facility] [id number] [place] [address] 84957- 0923 24 Jan, 2015 [facility] [id number] [place] [address] 16998- 6627 16 Jan, 2015 [facility] [id number] [place] [address] 57303- 4343 Jan, [facility] [id number] [place] [address] 05544- 7872 Jan, [facility] [address] [address] 3474 Jan, [facility] [id number] [place] [address] 18281- 8292 Dec, [facility] [address] [address] 5483 17 Dec, 2014 Left knee pain M25.562 [facility] [address] [id number] [address]- 0286 17 Dec, 2014 Left knee pain M25.562 [facility] [id number] [place] [address] 95365- 8989 16 Dec, 2014 Fibromyalgia M79.7 ; Hypertension I10 and Arthritis M19.90 [facility] [address] [id number] [address]- 1817 Dec, [facility] [id number] [place] [address] 43201- 8116 Dec, [facility] [id number] [place] [address] 66848- 6196 Dec, [facility] [id number] [place] [address] 96545- 9378 Dec, [facility] [id number] [place] [address] 38288- 6130 Nov, [facility] [id number] [place] [address] 10235- 9467 Nov, [facility] [id number] [place] [address] 77333- 7192 Nov, [facility] [id number] [place] [address] 35056- 2930 Nov, Hypertension I10 [facility] [address] [address]- 1205 23 Sep, 2014 [facility] [id number] [address]- 3459 17 Sep, 2014 [facility] [id number] [place] [address] 95680- 1254 04 Sep, 2014 [facility] [id number] [address]- 2165 04 Sep, 2014 [facility] [address] [address]- 1698 03 Sep, 2014 [facility] [address] [facility] [id number], [place] [address]- 0781 Sep, [facility] [address] [id number], [place] [address]- 5714 Sep, [facility] [address] [id number], [place] [address]- 0140 Sep, Hip pain associated with recalled total hip arthroplasty hardware 996.77 [facility] [place] [facility] [address] [id number] [address]- 3378 Sep, [facility] [address] [id number] [place] [address]- 3056 Sep, [facility] [address] [id number] [address]- 3000 Sep, [facility] [address] [facility] [id number], [place] [address]- 8678 Aug, [facility] [address] [id number], [place] [address]- 8341 Jul, [facility] [address] [id number], [place] [address]- 1841 June, [facility] [address] [facility] [id number], [place] [address]- 4081 June, [facility] [place] [facility] [address] [id number], [place] [address]- 7144 June, [facility] [place] [facility] [address] [id number] [address]- 9041 June, [facility] [place] [facility] [address] [id number], [place] [address]- 8035 June, [facility] [place] [facility] [address] [id number], [place] [address]- 4266 June, [facility] [place] [facility] [address] [id number], [place] [address]- 1083 May, [facility] [place] [facility] [address] [id number] [place] [address]- 1085 14 May, 2014 [facility] [place] [facility] [address] [id number] [place] [address]- 2354 13 May, 2014 [facility] [place] [facility] [address] [id number] [place] [address]- 7371 30 Apr, 2014 [facility] [place] [facility] [address] [id number] [place] [address]- 4383 30 Apr, 2014 [facility] [place] [facility] [address] [id number] [place] [address]- 5300 19 Apr, 2014 [facility] [place] [facility] [address] [id number] [place] [address]- 4308 19 Apr, 2014 [facility] [place] [facility] [address] [id number] [place] [address]- 2261 Apr, [facility] [place] [facility] [address] [id number] [place] [address]- 7290 Apr, [facility] [place] [facility] [address] [id number] [place] [address]- 9977 Apr, [facility] [place] [facility] [address] [id number] [place] [address]- 8769 Apr, [facility] [place] [facility] [address] [id number] [place] [address]- 5797 Apr, [facility] [place] [facility] [address] [id number] [place] [address]- 0524 05 Apr, 2014 [facility] [place] [facility] [address] [id number] [place] [address]- 7845 Apr, [facility] [place] [facility] [address] [id number] [place] [address]- 5407 Mar, [facility] [place] [facility] [address] [id number] [place] [address]- 4166 Mar, [facility] [place] [facility] [address] [id number] [place] [address]- 3942 16 Mar, 2014 [facility] [place] [facility] [address] [id number] [place] [address]- 8169 16 Mar, 2014 [facility] [place] [facility] [address] [id number] [place] [address]- 8692 Mar, [facility] [place] [facility] [address] [id number] [place] [address]- 8885 Mar, [facility] [place] [facility] [address] [id number] [place] [address]- 5652 15 Feb, 2014 [facility] [place] [facility] [address] [id number] [place] [address]- 2098 Feb, [facility] [place] [facility] [address] [id number] [place] [address]- 8310 Feb, [facility] [place] [facility] [address] [id number] [place] [address]- 9839 Feb, [facility] [place] [facility] [address] [id number] [place] [address]- 4066 Jan, [facility] [place] [facility] [address] [id number] [place] [address]- 6336 Jan, [facility] [place] [facility] [address] [id number] [place] [address]- 6111 Jan, [facility] [place] [facility] [address] [id number] [place] [address]- 1888 Jan, [facility] [place] [facility] [address] [id number] [place] [address]- 2092 Dec, [facility] [place] [facility] [address] [id number] [place] [address]- 0451 Dec, [facility] [place] [facility] [address] [id number] [place] [address]- 0519 Dec, [facility] [place] [facility] [address] [id number] [place] [address]- 0037 Dec, [facility] [place] [facility] [address] [id number] [place] [address]- 4342 Dec, [facility] [place] [facility] [address] [id number] [place] [address]- 1120 Dec, [facility] [place] [facility] [address] [id number] [place] [address]- 6128 Dec, [facility] [place] [facility] [address] [id number] [place] [address]- 3401 Dec, [facility] [place] [facility] [address] [id number] [place] [address]- 6152 Dec, [facility] [place] [facility] [address] [id number] [place] [address]- 1142 Dec, [facility] [place] [facility] [address] [id number] [place] [address]- 4974 Dec, [facility] [place] [facility] [address] [id number] [place] [address]- 7632 Nov, [facility] [place] [facility] [address] [id number] [place] [address]- 9505 28 Nov, 2013 [facility] [place] [facility] [address] [id number] [place] [address]- 8596 28 Nov, 2013 [facility] [place] [facility] [address] [id number] [place] [address]- 3694 Nov, [facility] [place] [facility] [address] [id number] [place] [address]- 6009 17 Nov, 2013 [facility] [place] [facility] [address] [id number] [address]- 6200 15 Nov, 2013 [facility] [place] [facility] [address] [id number] [place] [address]- 0495 15 Nov, 2013 [facility] [place] [facility] [address] [id number], [place] [address]- 2409 15 Nov, 2013 [facility] [place] [facility] [address] [id number], [place] [address]- 8666 15 Nov, 2013 [facility] [place] [facility] [address] [id number] [place] [address]- 1976 14 Nov, 2013 [facility] [place] [facility] [address] [id number] [place] [address]- 7926 14 Nov, 2013 [facility] [place] [facility] [address] [id number] [place] [address]- 8790 14 Nov, 2013 [facility] [place] [facility] [address] [id number] [place] [address]- 2836 14 Nov, 2013 [facility] [place] [facility] [address] [id number] [place] [address]- 9732 13 Nov, 2013 [facility] [place] [facility] [address] [id number] [place] [address]- 7841 13 Nov, 2013 [facility] [place] [facility] [address] [id number] [place] [address]- 8798 11 Nov, 2013 [facility] [place] [facility] [address] [id number] [place] [address]- 5954 11 Nov, 2013 [facility] [place] [facility] [address] [id number] [place] [address]- 6416 07 Nov, 2013 [facility] [place] [facility] [address] [id number] [place] [address]- 1831 07 Nov, 2013 [facility] [place] [facility] [address] [id number] [place] [address]- 0941 07 Nov, 2013 [facility] [place] [facility] [address] [id number] [place] [address]- 6429 07 Nov, 2013 [facility] [place] [facility] [address] [id number] [place] [address]- 5015 30 Oct, 2013 [facility] [place] [facility] [address] [id number] [place] [address]- 7948 30 Oct, 2013 [facility] [place] [facility] [address] [id number] [place] [address]- 8312 26 Oct, 2013 [facility] [place] [facility] [address] [id number] [place] [address]- 9865 Oct, 2013 [facility] [place] [facility] [address] [id number] [place] [address]- 9967 Oct, 2013 [facility] [place] [facility] [address] [id number] [place] [address]- 3453 22 Oct, 2013 [facility] [place] [facility] [address] [id number] [place] [address]- 5642 18 Oct, 2013 [facility] [place] [facility] [address] [id number] [place] [address]- 4361 18 Oct, 2013 [facility] [place] [facility] [address] [id number] [place] [address]- 3607 Oct, 2013 [facility] [place] [facility] [address] [id number] [place] [address]- 1558 Oct, 2013 [facility] [place] [facility] [address] [id number] [place] [address]- 7098 Oct, 2013 [facility] [place] [facility] [address] [id number] [place] [address]- 4029 Oct, 2013 [facility] [place] [facility] [address] [id number] [place] [address]- 6473 Oct, [facility] [place] [facility] [address] [id number] [place] [address]- 2608 Oct, [facility] [place] [facility] [address] [id number], [place] [address]- 6093 Sep, [facility] [place] [facility] [address] [id number], [place] [address]- 6656 Sep, [facility] [place] [facility] [address] [id number] [place] [address]- 0553 Sep, [facility] [place] [facility] [address] [id number] [place] [address]- 9638 Sep, [facility] [place] [facility] [address] [id number] [place] [address]- 8678 Sep, [facility] [place] [facility] [address] [id number] [place] [address]- 4142 Sep, [facility] [place] [facility] [address] [id number] [place] [address]- 5868 Sep, [facility] [place] [facility] [address] [id number] [place] [address]- 2274 Sep, [facility] [place] [facility] [address] [id number] [place] [address]- 8185 Sep, [facility] [place] [facility] [address] [id number] [place] [address]- 5170 Sep, [facility] [place] [facility] [address] [id number] [place] [address]- 9515 Sep, [facility] [place] [facility] [address] [id number] [place] [address]- 4119 Sep, [facility] [place] [facility] [address] [id number] [place] [address]- 9494 Sep, [facility] [place] [facility] [address] [id number] [place] [address]- 2689 Sep, [facility] [place] [facility] [address] [id number] [place] [address]- 5138 Sep, [facility] [place] [facility] [address] [id number] [place] [address]- 2766 Sep, [facility] [place] [facility] [address] [id number] [place] [address]- 1485 Sep, [facility] [place] [facility] [address] [id number] [place] [address]- 2925 Sep, [facility] [place] [facility] [address] [id number] [place] [address]- 3882 Aug, [facility] [place] [facility] [address] [id number] [place] [address]- 6282 Aug, [facility] [place] [facility] [address] [id number] [place] [address]- 3388 Aug, [facility] [place] [facility] [address] [id number] [place] [address]- 1775 Aug, [facility] [place] [facility] [address] [id number] [place] [address]- 8398 Aug, [facility] [place] [facility] [address] [id number] [place] [address]- 2576 Aug, [facility] [place] [facility] [address] [id number] [place] [address]- 5109 Jul, [facility] [place] [facility] [address] [id number] [place] [address]- 4296 Jul, [facility] [place] [facility] [address] [id number] [place] [address]- 1985 Jul, [facility] [place] [facility] [address] [id number] [place] [address]- 0198 Jul, [facility] [place] [facility] [address] [id number] [place] [address]- 3730 June, [facility] [place] [facility] [address] [id number] [place] [address]- 7209 June, [facility] [place] [facility] [address] [id number] [place] [address]- 1672 June, [facility] [place] [facility] [address] [id number] [place] [address]- 3738 June, [facility] [place] [facility] [address] [id number] [place] [address]- 7133 June, [facility] [place] [facility] [address] [id number] [place] [address]- 0638 June, [facility] [place] [facility] [address] [id number] [place] [address]- 2029 June, [facility] [place] [facility] [address] [id number] [place] [address]- 4249 May, [facility] [place] [facility] [address] [id number] [place] [address]- 5220 May, [facility] [place] [facility] [address] [id number] [place] [address]- 3561 May, [facility] [place] [facility] [address] [id number] [place] [address]- 6071 May, [facility] [place] [facility] [address] [id number] [place] [address]- 1272 May, [facility] [place] [facility] [address] [id number] [place] [address]- 0288 May, [facility] [place] [facility] [address] [id number] [place] [address]- 1245 Apr, [facility] [place] [facility] [address] [id number] [place] [address]- 1109 31 Apr, 2013 [facility] [place] [facility] [address] [id number] [place] [address]- 1338 Apr, [facility] [place] [facility] [address] [id number] [place] [address]- 7966 Apr, [facility] [place] [facility] [address] [id number] [place] [address]- 7435 Apr, [facility] [place] [facility] [address] [id number] [place] [address]- 7742 14 Apr, 2013 [facility] [place] [facility] [address] [id number] [place] [address]- 9651 Apr, [facility] [place] [facility] [address] [id number] [place] [address] 12 Apr, 2013 [facility] [place] [facility] [address] [id number] [place] [address] 10 Apr, 2013 [facility] [place] [facility] [address] [id number] [place] [address] 10 Apr, 2013 [facility] [place] [facility] [address] [id number] [place] [address] 04 Apr, 2013 [facility] [place] [facility] [address] [id number] [place] [address] Apr, [facility] [place] [facility] [address] [id number] [place] [address] Apr, [facility] [place] [facility] [address] [id number] [place] [address] Apr, [facility] [place] [facility] [address] [id number] [place] [address] Mar, [facility] [place] [facility] [address] [id number] [place] [address] Mar, [facility] [place] [facility] [address] [id number] [place] [address] Mar, [facility] [place] [facility] [address] [id number] [place] [address] Feb, [facility] [place] [facility] [address] [id number] [place] [address] Feb, [facility] [place] [facility] [address] [id number] [place] [address] Feb, [facility] [place] [facility] [address] [id number] [place] [address] Feb, [facility] [place] [facility] [address] [id number] [place] [address] Feb, [facility] [place] [facility] [address] [id number] [place] [address] Feb, [facility] [place] [facility] [address] [id number] [place] [address]28 Feb, [facility] [place] [facility] [address] [id number] [place] [address] 8864 Feb, [facility] [place] [facility] [address] [id number] [place] [address] 99[address] Feb, [facility] [place] [facility] [address] [id number] [place] [address] Feb, [facility] [address] [id number] [place] [address] Jan, [facility] [address] [id number] [place] [address] 9541 Jan, [facility] [address] [id number] [place] [address] Jan, [facility] [address] [id number] [place] [address] Jan, [facility] [address] [id number] [place] [address] Jan, [facility] [address] [id number] [place] [address] Jan, [facility] [address] [id number] [place] [address]- [address] Jan, [facility] [address] [id number] [place] [address]- 68[address] Jan, [facility] [address] [id number] [place] [address]- [address]234 Jan, [facility] [address] [id number] [place] [address] 58[address] Jan, [facility] [address] [id number], [place] [address] 17 Jan, 2013 [facility] [place] [facility] [address] [id number], [place] [address] 17 Jan, 2013 [facility] [place] [facility] [address] [id number] [place] [address]- 7136 16 Jan, 2013 [facility] [place] [facility] [address] [id number] [place] [address]- [address]41 11 Jan, 2013 [facility] [place] [facility] [address] [id number] [place] [address] Jan, [facility] [place] [facility] [address] [id number] [place] [address] Jan, [facility] [address] [id number] [place] [address] Jan, [facility] [place] [facility] [address] [id number] [place] [address]- 1288 Jan, [facility] [address] [id number] [place] [address]- 27[address] Jan, [facility] [place] [facility] [address] [id number] [place] [address]79 Jan, [facility] [address] [id number] [place] [address]- 36[address] Jan, [facility] [place] [facility] [address] [id number] [place] [address]- 7737 Dec, [facility] [address] [id number] [place] [address] 6910 Dec, [facility] [place] [facility] [address] [id number] [place] [address] 4539 Dec, [facility] [place] [facility] [address] [id number] [place] [address]- 6457 Dec, [facility] [address] [facility] [id number] [place] [address]- 2905 Dec, [facility] [place] [facility] [address] [id number] [place] [address]- 5814 Dec, [facility] [place] [facility] [address] [id number], [place] [address] Dec, [facility] [place] [facility] [address] [id number] [place] [address]- [address]805 Dec, [facility] [place] [facility] [address] [facility] [id number] [place] [address]- 4389 Dec, [facility] [place] [facility] [address] [id number] [address] Dec, [facility] [place] [facility] [address] [id number] [place] [address]- 8425 Nov, [facility] [place] [facility] [address] [id number] [place] [address]15 Nov, [facility] [place] [facility] [address] [id number] [place] [address]- 9532 Nov, [facility] [place] [facility] [address] [id number] [place] [address]- 9947 Nov, [facility] [place] [facility] [address] [id number] [place] [address]- 3756 Nov, [facility] [place] [facility] [address] [id number] [place] [address]- [address] Nov, [facility] [place] [facility] [address] [id number] [place] [address]- 1433 Nov, [facility] [place] [facility] [address] [id number] [place] [address]- 7299 Nov, [facility] [place] [facility] [address] [id number] [place] [address]- 1978 Nov, [facility] [place] [facility] [address] [id number] [place] [address]- [address]123 Nov, [facility] [place] [facility] [address] [id number] [place] [address]- 1082 26 Oct, 2012 [facility] [place] [facility] [address] [id number], [place] [address] 26 Oct, 2012 [facility] [place] [facility] [address] [id number] [place] [address] 26 Oct, 2012 [facility] [place] [facility] [address] [id number] [place] [address] 25 Oct, 2012 [facility] [place] [facility] [address] [id number] [place] [address] 06 Oct, 2012 [facility] [place] [facility] [address] [id number] [place] [address] Sep, [facility] [place] [facility] [address] [id number] [place] [address] 18[address] Sep, [facility] [place] [facility] [address] [id number] [place] [address]993 Aug, [facility] [place] [facility] [address] [id number] [place] [address] 56[address] Aug, [facility] [place] [facility] [address] [id number] [place] [address] 0380 Aug, [facility] [place] [facility] [address] [id number] [place] [address] 5966 Aug, [facility] [place] [facility] [address] [id number] [place] [address] 8656 Aug, [facility] [place] [facility] [address] [id number] [place] [address] 5990 Aug, [facility] [place] [facility] [address] [id number] [place] [address]- 7438 Aug, [facility] [place] [facility] [address] [id number] [place] [address]- 2289 Jul, [facility] [place] [facility] [address] [id number] [place] [address] 8404 Jul, [facility] [place] [facility] [address] [id number] [place] [address] 1564 June, [facility] [place] [facility] [address] [id number] [place] [address] 6309 June, [facility] [place] [facility] [address] [id number] [place] [address]- 2621 June, [facility] [place] [facility] [address] [id number] [place] [address]- 0875 June, [facility] [place] [facility] [address] [id number] [place] [address]- 9942 June, [facility] [place] [facility] [address] [id number] [place] [address] June, [facility] [address] [id number] [place] [address] 3440 June, [facility] [address] [id number] [place] [address] 2546 June, [facility] [address] [id number] [place] [address]- 8756 June, [facility] [address] [id number] [place] [address]- 2346 June, [facility] [address] [id number] [place] [address]- 3264 June, [facility] [address] [id number] [place] [address]- 6657 May, [facility] [address] [id number] [place] [address]- 3600 May, [facility] [address] [id number] [place] [address]- 4991 May, [facility] [address] [id number] [place] [address]- 4576 May, [facility] [address] [id number] [place] [address]- 4678 Apr, [facility] [address] [id number] [place] [address]- 5626 Apr, [facility] [address] [id number] [place] [address]- 2548 Apr, [facility] [address] [id number] [place] [address] 2916 Mar, [facility] [address] [id number] [place] [address]- 2546 Mar, [facility] [address] [id number] [place] [address]- 6604 Feb, [facility] [address] [id number] [place] [address] 8862 28 Feb, 2012 [facility] [place] [facility] [address] [id number] [place] [address]- 5689 Feb, [facility] [place] [facility] [address] [id number] [place] [address] 1864 Feb, [facility] [place] [facility] [address] [id number] [place] [address]- 9312 16 Feb, 2012 [facility] [address] [id number] [place] [address]- 6485 14 Feb, 2012 [facility] [address] [id number] [place] [address]- 4034 08 Feb, 2012 [facility] [address] [id number] [place] [address]- 1249 31 Jan, 2012 [facility] [address] [id number] [place] [address]- 3855 31 Jan, 2012 [facility] [place] [facility] [address] [id number] [place] [address]- 9786 Jan, [facility] [place] [facility] [address] [id number] [place] [address]- 1880 17 Jan, 2012 [facility] [place] [facility] [address] [id number] [place] [address]- 5628 17 Jan, 2012 [facility] [place] [facility] [address] [id number] [place] [address]- 8700 11 Jan, 2012 [facility] [place] [facility] [address] [id number] [place] [address]- 5930 11 Jan, 2012 [facility] [place] [facility] [address] [id number] [place] [address]- 6485 10 Jan, 2012 [facility] [place] [facility] [address] [id number] [place] [address] 10 Jan, 2012 [facility] [place] [facility] [address] [id number] [place] [address]- 7121 Jan, [facility] [place] [facility] [address] [id number] [place] [address]- 8711 Jan, [facility] [place] [facility] [address] [id number] [place] [address] 6019 Dec, [facility] [place] [facility] [address] [id number] [place] [address]- 2956 Dec, [facility] [place] [facility] [address] [id number] [place] [address]- 2096 Dec, [facility] [place] [facility] [address] [id number] [place] [address]- 7036 Dec, [facility] [place] [facility] [address] [id number] [place] [address]- 6901 Nov, [facility] [place] [facility] [address] [id number] [place] [address]- 0336 Nov, [facility] [place] [facility] [address] [id number] [place] [address]- 7493 08 Nov, 2011 [facility] [place] [facility] [address] [id number] [place] [address]- 2039 27 Oct, 2011 [facility] [place] [facility] [address] [facility] [id number] [place] [address]- 6014 24 Sep2011 [facility] [place] [facility] [address] [id number] [place] [address]- 6929 21 Sep, 2011 [facility] [place] [facility] [address] [id number] [place] [address]- 2544 10 Sep, 2011 [facility] [place] [facility] [address] [id number] [place] [address]- 8643 07 Sep, 2011 [facility] [place] [facility] [address] [facility] [id number] [place] [address]- 0526 04 Sep, 2011 [facility] [place] [facility] [address] [facility] [id number] [place] [address]- 0765 04 Sep, 2011 [facility] [place] [facility] [address] [id number] [place] [address]- 8677 Sep, [facility] [place] [facility] [address] [id number] [place] [address]- 4716 Sep, [facility] [place] [facility] [address] [id number] [place] [address]- 3376 Sep, [facility] [place] [facility] [address] [id number] [place] [address]- 2042 Sep, [facility] [place] [facility] [address] [id number] [place] [address]- 3503 Sep, [facility] [place] [facility] [address] [id number] [place] [address]- 0862 Aug, [facility] [place] [facility] [address] [id number] [place] [address]- 9914 Aug, [facility] [place] [facility] [address] [id number] [place] [address]- 7571 Aug, [facility] [place] [facility] [address] [id number] [place] [address]- 7656 Aug, [facility] [place] [facility] [address] [id number] [place] [address]- 6543 Aug, [facility] [place] [facility] [address] [id number] [place] [address]- 3550 Aug, [facility] [place] [facility] [address] [id number] [place] [address]- 8674 Aug, [facility] [place] [facility] [address] [id number] [place] [address]- 4858 Jul, [facility] [place] [facility] [address] [id number] [place] [address]- 6989 Jul, [facility] [place] [facility] [address] [id number] [place] [address]- 8196 Jul, [facility] [place] [facility] [address] [id number] [place] [address]- 6006 Jul, [facility] [place] [facility] [address] [id number] [place] [address]- 5129 Jul, [facility] [place] [facility] [address] [id number] [place] [address]- 1242 Jul, [facility] [place] [facility] [address] [id number] [place] [address]- 4919 Jul, [facility] [place] [facility] [address] [id number] [place] [address]- 6054 Jul, [facility] [place] [facility] [address] [id number] [place] [address]- 6919 Jul, [facility] [place] [facility] [address] [id number] [place] [address]- 5540 June, [facility] [place] [facility] [address] [id number] [place] [address]- 3879 June, [facility] [place] [facility] [address] [id number] [place] [address]- 5713 June, [facility] [place] [facility] [address] [id number] [place] [address]- 9093 June, [facility] [place] [facility] [address] [id number] [place] [address]- 2897 June, [facility] [place] [facility] [address] [id number] [place] [address]- 6483 June, [facility] [place] [facility] [address] [id number] [place] [address]- 8759 June, [facility] [place] [facility] [address] [id number] [place] [address]- 0899 June, [facility] [place] [facility] [address] [id number] [place] [address]- 9746 May, [facility] [place] [facility] [address] [id number] [place] [address]- 1195 May, [facility] [place] [facility] [address] [id number] [place] [address]- 3356 20 May, 2011 [facility] [address] [id number] [place] [address]- 0776 19 May, 2011 [facility] [place] [facility] [address] [id number] [place] [address] 2546 16 May, 2011 [facility] [address] [id number] [place] [address]- 7806 16 May, 2011 [facility] [address] [id number] [place] [address] 2546 02 May, 2011 [facility] [address] [id number] [place] [address]- 1080 27 Apr, 2011 [facility] [address] [id number] [place] [address]- 3906 Apr, [facility] [address] [id number] [place] [address]- 4686 Apr, [facility] [address] [id number] [place] [address]- 1222 19 Apr, 2011 [facility] [place] [facility] [address] [id number] [place] [address]- 7853 Apr, [facility] [address] [id number] [place] [address]- 1903 06 Apr, 2011 [facility] [place] [facility] [address] [id number] [place] [address]- 7576 Apr, [facility] [place] [facility] [address] [id number] [place] [address]- 0100 20 Mar, 2011 [facility] [place] [facility] [address] [id number] [place] [address]- 1866 20 Mar, 2011 [facility] [place] [facility] [address] [id number] [place] [address]- 5396 14 Mar, 2011 [facility] [place] [facility] [address] [id number] [place] [address]- 6658 Mar, [facility] [address] [id number] [place] [address]- 7907 Mar, [facility] [place] [facility] [address] [id number] [place] [address]- 9356 Mar, [facility] [place] [facility] [address] [id number] [place] [address]- 3276 Mar, [facility] [place] [facility] [address] [id number] [place] [address]- 8956 Feb, [facility] [place] [facility] [address] [id number] [place] [address]- 1271 Feb, [facility] [place] [facility] [address] [id number] [place] [address]- 0406 Feb, [facility] [place] [facility] [address] [id number] [place] [address]- 3683 Feb, [facility] [place] [facility] [address] [id number] [place] [address]- 1570 Feb, [facility] [place] [facility] [address] [id number] [place] [address]- 3804 Feb, [facility] [place] [facility] [address] [id number] [place] [address]- 8021 Feb, [facility] [place] [facility] [address] [id number] [place] [address]- 8936 Feb, [facility] [place] [facility] [address] [id number] [address]- 7591 Feb, [facility] [place] [facility] [address] [id number] [place] [address]- 5186 Feb, [facility] [place] [facility] [address] [id number] [place] [address]- 2786 Jan, [facility] [place] [facility] [address] [id number] [place] [address]- 2816 Jan, [facility] [place] [facility] [address] [id number] [place] [address]- 8118 Jan, [facility] [place] [facility] [address] [id number] [place] [address]- 3096 Jan, [facility] [place] [facility] [address] [id number] [place] [address]- 4996 Jan, [facility] [place] [facility] [address] [id number] [place] [address]- 9490 Jan, [facility] [place] [facility] [address] [id number] [place] [address]- 8218 15 Jan, 2011 [facility] [place] [facility] [address] [id number] [place] [address]- 0934 15 Jan, 2011 [facility] [place] [facility] [address] [id number] [place] [address]- 1471 Jan, [facility] [place] [facility] [address] [id number] [place] [address]- 5759 Jan, [facility] [place] [facility] [address] [id number] [place] [address]- 7717 Jan, [facility] [place] [facility] [address] [id number] [place] [address]- 2159 17 Dec, 2010 [facility] [place] [facility] [address] [id number] [place] [address]- 5465 17 Dec, 2010 [facility] [place] [facility] [address] [id number] [place] [address]- 3223 17 Dec, 2010 [facility] [place] [facility] [address] [id number] [place] [address]- 9670 16 Dec, 2010 [facility] [place] [facility] [address] [id number] [place] [address]- 3446 14 Dec, 2010 [facility] [place] [facility] [address] [id number] [place] [address]- 1597 09 Dec, 2010 [facility] [place] [facility] [address] [id number] [place] [address]- 4559 Dec, [facility] [place] [facility] [address] [id number] [place] [address]- 4860 Dec, [facility] [place] [facility] [address] [id number] [place] [address]- 9995 Dec, [facility] [place] [facility] [address] [id number] [place] [address]- 2102 Nov, [facility] [place] [facility] [address] [id number] [place] [address]- 3170 Nov, [facility] [place] [facility] [address] [id number] [place] [address]- 1028 Nov, [facility] [place] [facility] [address] [id number] [place] [address]- 7326 Nov, [facility] [place] [facility] [address] [id number] [place] [address]- 2726 Nov, [facility] [place] [facility] [address] [id number] [place] [address]- 7561 Nov, [facility] [place] [facility] [address] [id number] [place] [address]- 4536 Aug, [facility] [place] [facility] [address] [id number] [place] [address]- 3369 Feb, [facility] [place] [facility] [address] [id number] [place] [address]- 9799 14 Jan, 2010 [facility] [place] [facility] [address] [id number] [place] [address]- 6692 Jan, [facility] [place] [facility] [address] [id number] [place] [address]- 6450 Jan, [facility] [place] [facility] [address] [id number] [place] [address]- 5981 Jan, [facility] [place] [facility] [address] [id number] [place] [address]- 6918 Jan, [facility] [place] [facility] [address] [id number] [place] [address]- 7311 Dec, [facility] [address] [id number] [address] Dec, [facility] [id number] [address]- 4551 Dec, [facility] [address] [id number] [address]- 0555 Dec, [facility] [address] [id number] [address]- 9268 Nov, [facility] [address] [id number] [address]058 Nov, [facility] [address] [id number] [address]- 2685 Nov, IMMUNIZATIONS No Known Immunizations SOCIAL HISTORY Never Assessed REASON FOR VISIT Prior Auth PLAN OF CARE VITAL SIGNS MEDICATIONS Unknown [...]
--- OUTSIDE RECORDS SUMMARY | 2018-01-13 22:04 | XMS REPORT ---
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 Active 810701957 Problem Hypertension I10 Active 09863475 Problem Arthritis M19.90 Active 9161758 Problem 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 Active 66605577 Problem Anxiety F41.9 Active 20481929 Problem Unspecified episodic mood disorder F39 Active 41703666 Problem Left hip pain M25.552 Active 88240088 ALLERGIES No Information ENCOUNTERS Encounter Location Date Diagnosis [facility] [address] [facility] [id number] [address] Nov, [facility] [id number] [address] Oct, [facility] [address] [facility] [id number], [place] [address] Sep, Chronic hepatitis C without hepatic coma B18.2 [facility] [id number] [place] [address] 44962- 9203 Sep, Gastroesophageal reflux disease, esophagitis presence not specified K21.9 and Other chronic pain G89.29 [facility] [id number] [place] [address] 48511- 6124 Sep, [facility] [address] 14026- 5569 Sep, [facility] [id number] [place] [address] 08572- 8506 Sep, Chronic hepatitis C without hepatic coma B18.2 [facility] [id number] [place] [address] 72160- 0992 Sep, 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 [facility] [id number] [place] [address] 48670- 0952 Sep, Arthritis M19.90 [facility] [id number] [place] [address] 02735- 8304 Sep, [facility] [id number] [place] [address] 32748- 3626 Sep, Unspecified episodic mood disorder F39 [facility] [id number] [place] [address] 61145- 3252 Aug, [facility] [id number] [place] [address] [id number] Aug, [facility] [id number] [place] [address] 14924- 5988 Aug, Arthritis M19.90 [facility] [id number] [place] [address] 03941- 9511 Aug, [facility] [id number] [place] [address] 68718- 9977 Aug, Obesity (BMI 30.0-34.9) E66.9 ; Unspecified episodic mood disorder F39 and Hypertension I10 [facility] [address], [place] [address] Aug, Unspecified episodic mood disorder F39 [facility] [id number] [address] 4974 Aug, [facility] [id number] [place] [address] 82675- 2015 Jul, Unspecified episodic mood disorder F39 [facility] [id number] [place] [address] 25801- 6592 Jul, [facility] [id number] [place] [address] 13379- 0188 Jul, Arthritis M19.90 [facility] [id number] [place] [address] 61045- 0861 Jul, Left hip pain M25.552 ; Hypertension I10 ; Other obesity due to excess calories E66.09 and Body mass index (BMI) of 34.0-34.9 in adult Z68.34 [facility] [id number] [place] [address] 75343- 2091 Jul, Unspecified episodic mood disorder F39 [facility] [address], [place] [address] 0291 June, Gastroesophageal reflux disease, esophagitis presence not specified K21.9 [facility] [id number] [address] 6251 June, [facility] [address], [place] [address] 3153 June, [facility] [id number] [place] [address] 32061- 8478 June, Arthritis M19.90 [facility] [address], [place] [address] 8698 June, [facility] [id number] [address]- 4896 June, [facility] [address] [place] [address] 77980- 5765 June, Unspecified episodic mood disorder F39 [facility] [address], [place] [address] 9378 May, Unspecified episodic mood disorder F39 [facility] [id number] [place] [address] 83705- 9820 May, [facility] [id number] [place] [address] 60028- 9145 May, Arthritis M19.90 [facility] [address] [place] [address] 21192 -6936 May, Dysuria R30.0 ; Abscess L02.91 and Acute cystitis without hematuria N30.00 [facility] [address] [place] [address] 51278- 5943 May, Other disorder of impulse control 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 ; Unspecified episodic mood disorder F39 ; Combined drug dependence excluding opioids, 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 ; Anxiety F41.9 and Other psychoactive substance dependence, 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 [facility] [address] [place] [address] 35734- 4293 May, [facility] [address] [place] [address] 83250- 0202 May, Other disorder of impulse control 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 ; Unspecified episodic mood disorder F39 ; Combined drug dependence excluding opioids, 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 ; Other psychoactive substance dependence, 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 and Anxiety F41.9 [facility] [id number] [place] [address] 20356- 0215 May, Other chronic pain G89.29 ; Left hip pain M25.552 ; Hypertension I10 ; 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, 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 and Unspecified episodic mood disorder F39 [facility] [address] [place] [address] 70480- 9897 Apr, [facility] [id number] [place] [address] 83508 -2827 Apr, Neck pain M54.2 ; Left hip pain M25.552 and Fall, initial encounter W19.XXXA [facility] [id number] [place] [address] 28500- 0128 Apr, Unspecified episodic mood disorder F39 ; Combined drug dependence excluding opioids, 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 ; Anxiety F41.9 ; Other psychoactive substance dependence, 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 and Other disorder of impulse control F63.89 [facility] [id number] [place] [address] 28350- 0297 Apr, [facility] [id number] [place] [address] 02866- 5841 Apr, Arthritis M19.90 and Unspecified episodic mood disorder F39 [facility] [id number] [place] [address] 64637- 2648 Apr, Unspecified episodic mood disorder F39 [facility] [id number] [place] [address] 13884- 9521 Apr, [facility] [id number] [place] [address] 91735- 7291 Apr, [facility] [id number] [place] [address] 31669- 9598 Apr, Unspecified episodic mood disorder F39 ; Combined drug dependence excluding opioids, 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 ; Anxiety F41.9 ; Other psychoactive substance dependence, 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 and Other disorder of impulse control F63.89 [facility] [id number] [place] [address] 92677- 0371 Mar, Unspecified episodic mood disorder F39 [facility] [id number] [place] [address] 37872- 5689 Mar, Gastroesophageal reflux disease, esophagitis presence not specified K21.9 [facility] [address] [place] [address] 86885- 4263 Mar, Arthritis M19.90 and Unspecified episodic mood disorder F39 [facility] [id number] [place] [address] 41783- 4886 Feb, [facility] [id number] [place] [address] 38474- 9038 Feb, [facility] [id number] [place] [address] 04002- 3609 Feb, [facility] [id number] [place] [address] 02012- 4645 Feb, Arthritis M19.90 [facility] [id number] [place] [address] 92712- 6309 Feb, Non-pressure chronic ulcer of right calf, 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 ; Unspecified episodic mood disorder F39 and Left hip pain M25.552 [facility] [id number] [place] [address] 51258- 6374 Feb, [facility] [id number] [place] [address] 35121- 9466 Feb, [facility] [address] [place] [address] 64464- 1928 Jan, Arthritis M19.90 [facility] [id number] [place] [address] 88955- 6282 Jan, Left hip pain M25.552 and Non-pressure chronic ulcer of right calf, 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 [facility] [id number] [place] [address] 70197- 0414 Jan, Chronic hepatitis C without hepatic coma B18.2 [facility] [address] [place] [address] 97366- 6699 Jan, Encounter for immunization Z23 ; Venous insufficiency ( chronic) (peripheral) I87.2 ; Non-pressure chronic ulcer of unspecified calf limited to breakdown of skin L97.201 and Gastroesophageal reflux disease, esophagitis presence not specified K21.9 [facility] [id number] [place] [address] 11243 2546 Jan, [facility] [id number] [place] [address] 76127- 9976 Jan, Chronic hepatitis C without hepatic coma B18.2 and Encounter for immunization Z23 [facility] [id number] [place] [address] 81490 2546 Jan, Arthritis M19.90 [facility] [address] 59335- 4346 Jan, [facility] [id number] [place] [address] 54329- 6428 Dec, [facility] [id number] [place] [address] 23473- 9981 Dec, Unspecified episodic mood disorder F39 [facility] [id number] [place] [address] 46806 2546 Dec, Arthritis M19.90 [facility] [id number] [place] [address] 13581- 8476 Dec, Arthritis M19.90 [facility] [id number] [place] [address] 19749- 5216 Nov, [facility] [id number] [place] [address] 18671- 2540 Nov, [facility] [id number] [place] [address] 30923- 2546 Nov, Other psychoactive substance dependence, 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 ; 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, 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 and Chronic hepatitis C without hepatic coma B18.2 [facility] [id number] [place] [address] 32236- 6694 Nov, Arthritis M19.90 [facility] [address], [place] [address] Oct, Partial thickness burn of abdomen, initial encounter T21.22XA [facility] [address], [place] [address]- 0297 Oct, [facility] [id number] [place] [address] 26142- 8906 Sep, Arthritis M19.90 [facility] [id number] [place] [address] 70935- 7908 Sep, [facility] [id number] [place] [address] 12581- 7707 Sep, [facility] [id number] [place] [address] 78937- 1015 Sep, Unspecified episodic mood disorder F39 ; Chronic hepatitis C without hepatic coma B18.2 and Left hip pain M25.552 [facility] [id number] [place] [address] 65910- 5031 Sep, Arthritis M19.90 and Left hip pain M25.552 [facility] [id number] [place] [address] 40620- 1859 Aug, [facility] [id number] [place] [address] 16345- 8154 Aug, [facility] [id number] [place] [address] 49938- 6136 Aug, Chronic hepatitis C without hepatic coma B18.2 [facility] [id number] [place] [address] 86731- 3395 Aug, [facility] [id number] [place] [address] 52309- 3470 Aug, Chronic hepatitis C without hepatic coma B18.2 [facility] [id number] [place] [address] 35118- 8551 Aug, 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, 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 [facility] [id number] [place] [address] 06242- 3272 Aug, [facility] [id number] [place] [address] 71461- 8581 Aug, Chronic hepatitis C without hepatic coma B18.2 and Hypertension I10 [facility] [id number] [place] [address] 74382- 4730 Jul, [facility] [id number] [place] [address] 60628- 4526 June, [facility] [id number] [place] [address] 28810- 2825 Apr, Fibromyalgia M79.7 ; Left hip pain M25.552 and Decubitus ulcer of sacral region, stage 1 L89.151 [facility] [id number] [place] [address] 58664- 3613 Apr, [facility] [id number] [place] [address] 70874- 0640 Apr, [facility] [id number] [place] [address] 62699- 6159 Feb, [facility] [id number] [place] [address] 58918- 4088 Dec, Anxiety F41.9 ; Combined drug dependence excluding opioids, 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 and Unspecified episodic mood disorder F39 [facility] [id number] [place] [address] 12638- 6969 Dec, [facility] [id number] [place] [address] 13400- 8168 Nov, [facility] [id number] [place] [address] 23589- 0175 Nov, [facility] [id number] [place] [address] 46401- 9843 Nov, Other disorder of impulse control F63.89 and Anxiety F41.9 [facility] [id number] [place] [address] 90090- 7242 Oct, [facility] [id number] [place] [address] 56449 -6112 14 Oct, 2015 Open wound of left thigh, initial encounter S71.102A [facility] [id number] [place] [address] 52366- 3038 Oct, [facility] [id number] [place] [address] 62117- 5877 Sep, Unspecified episodic mood disorder F39 ; Other disorder of impulse control 312.39 ; Combined drug dependence excluding opioids, 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 and Anxiety F41.9 [facility] [id number] [place] [address] 26845- 5873 Sep, Other disorder of impulse control 312.39 ; Combined drug dependence excluding opioids, 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 ; Anxiety F41.9 and Unspecified episodic mood disorder F39 [facility] [id number] [place] [address] 26624- 5611 Sep, Other chronic pain G89.29 [facility] [id number] [place] [address] 83916- 2960 Sep, [facility] [address] [place] [address] 30347- 7081 Sep, [facility] [id number] [place] [address] 67450- 9109 Aug, [facility] [id number] [place] [address] 54665- 5314 Aug, [facility] [id number] [place] [address] 06168- 7721 Aug, [facility] [id number] [place] [address] 10502- 3164 Jul, [facility] [address] [address]- 3153 Jul, [facility] [id number] [place] [address] 00216- 5412 Jul, [facility] [id number] [place] [address] 42596- 4958 Jul, Arthritis M19.90 ; Chronic hepatitis C without hepatic coma B18.2 and Left hip pain M25.552 [facility] [id number] [place] [address] 68741- 2302 Jul, Left knee pain M25.562 [id number] [place] [address] 20185- 0761 Jul, Combined drug dependence excluding opioids, 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 ; Anxiety F41.9 ; Other disorder of impulse control 312.39 and Unspecified episodic mood disorder F39 [place] [id number] [place] [address] 67256- 9049 Jul, Left knee pain M25.562 [facility] [id number] [place] [address] 44917- 4616 Jul, Left knee pain M25.562 and Left hip pain M25.552 [id number] [place] [address] 67563- 9696 Jul, [facility] [id number] [place] [address] 48008- 8030 June, [facility] [address] [place] [address] 72903- 4934 June, Combinations of drug dependence excluding opioid type drug, unspecified abuse 304.80 ; Other disorder of impulse control 312.39 ; Unspecified episodic mood disorder F39 and Anxiety F41.9 [facility] [address] [place] [address] 29989- 9644 June, Other fatigue R53.83 ; Headache R51 and Left knee pain M25.562 [place], [place] [address]- [address] June, Unspecified episodic mood disorder F39 ; Combinations of drug dependence excluding opioid type drug, unspecified abuse 304.80 ; Other disorder of impulse control 312.39 and Anxiety F41.9 [facility] [address], [place] [address]- 6287 June, Anxiety F41.9 [facility] [id number] [place] [address] 81292- 0732 June, Pain in left knee M25.562 [id number] [place] [address] 88778- 0214 June, Anxiety F41.9 and Combinations of drug dependence excluding opioid type drug, unspecified abuse 304.80 [facility] [id number] [place] [address] 81670- 3294 June, Unspecified episodic mood disorder 296.90 ; Combinations of drug dependence excluding opioid type drug, unspecified abuse 304.80 and Other disorder of impulse control 312.39 [facility] [id number] [place] [address] 73913- 2955 June, Anxiety F41.9 and Unspecified episodic mood disorder 296.90 [facility] [address] [place] [address] 70189- 3278 May, Arthritis M19.90 [facility] [id number] [place] [address] 74502- 5081 May, Arthritis M19.90 [facility] [address] [place] [address] 06855- 6571 May, Anxiety F41.9 ; Combinations of drug dependence excluding opioid type drug, unspecified abuse 304.80 and Other disorder of impulse control 312.39 [facility] [address] [address]- 7235 May, Left knee pain M25.562 [facility] [id number] [place] [address] 01942- 4096 May, Arthritis M19.90 [facility] [address], [place] [address]- 4560 May, [facility] [address] [address]- 4687 May, Anxiety F41.9 ; Unspecified episodic mood disorder 296.90 ; Combinations of drug dependence excluding opioid type drug, unspecified abuse 304.80 and Other disorder of impulse control 312.39 [facility] [address], [place] [address]- 6047 May, Left knee pain M25.562 [facility] [address], [place] [address]- 7100 May, Left knee pain M25.562 ; Combinations of drug dependence excluding opioid type drug, unspecified abuse 304.80 ; Other disorder of impulse control 312.39 ; Fibromyalgia M79.7 ; Hypertension I10 ; Unspecified episodic mood disorder 296.90 and Left hip pain M25.552 [facility] [id number] [address]- 3325 May, Unspecified episodic mood disorder 296.90 ; Other disorder of impulse control 312.39 ; Combinations of drug dependence excluding opioid type drug, unspecified abuse 304.80 and Anxiety F41.9 [facility] [id number] [address]- 0428 May, Left knee pain M25.562 ; Combinations of drug dependence excluding opioid type drug, unspecified abuse 304.80 ; Other disorder of impulse control 312.39 ; Fibromyalgia M79.7 ; Hypertension I10 ; Unspecified episodic mood disorder 296.90 and Left hip pain M25.552 [facility] [id number] [address]- 1722 May, Anxiety F41.9 ; Unspecified episodic mood disorder 296.90 ; Other disorder of impulse control 312.39 and Combinations of drug dependence excluding opioid type drug, unspecified abuse 304.80 [facility] [address] [place] [address] 31641- 0915 30 Apr, 2015 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 and 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, implants and grafts, initial encounter T84.82XA [facility] [id number] [place] [address] 09457- 2318 28 Apr, 2015 Anxiety F41.9 ; Unspecified episodic mood disorder 296.90 ; Combinations of drug dependence excluding opioid type drug, unspecified abuse 304.80 and Other disorder of impulse control 312.39 [facility] [id number] [place] [address] 14659- 4718 25 Apr, 2015 Arthritis M19.90 [facility] [id number] [place] [address] 78853- 7905 21 Apr, 2015 Anxiety F41.9 ; Unspecified episodic mood disorder 296.90 ; Combinations of drug dependence excluding opioid type drug, unspecified abuse 304.80 and Other disorder of impulse control 312.39 [facility] [id number] [place] [address] 41205- 1728 17 Apr, 2015 Arthritis M19.90 [facility] [id number] [place] [address] 20789- 8172 15 Apr, 2015 [facility] [id number] [place] [address] 94490- 6396 15 Apr, 2015 [facility] [id number] [place] [address] 67961- 9942 14 Apr, 2015 Unspecified episodic mood disorder 296.90 ; Combinations of drug dependence excluding opioid type drug, unspecified abuse 304.80 ; Other disorder of impulse control 312.39 and Anxiety F41.9 [facility] [id number] [place] [address] 08164 -1937 11 Apr, 2015 Left knee pain M25.562 [facility] [id number] [place] [address] 40135- 5695 11 Apr, 2015 [facility] [id number] [place] [address] 88606- 6234 Mar, Unspecified episodic mood disorder 296.90 ; Anxiety F41.9 ; Other disorder of impulse control 312.39 and Combinations of drug dependence excluding opioid type drug, unspecified abuse 304.80 [place] [id number] [place] [address]- [address]10 25 Mar, 2015 Hyperpigmentation L81.9 [place] [id number] [place] [address] 8104 Mar, Arthritis M19.90 and Anxiety F41.9 [place] [id number] [place] [address] 04202- 6153 Mar, Unspecified episodic mood disorder F39 ; Combined drug dependence excluding opioids, 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.] of breast Z12.39 and Limited mobility Z74.09 [place] [address] 76239- 0224 10 Mar, 2015 [place] [address] 17074- 9443 Mar, [place] [address] 54355- 6895 Mar, [address] 08453- 0694 03 Mar, 2015 Other specified complication of internal orthopedic prosthetic devices, implants and grafts, initial encounter T84.89XA ; Fibromyalgia M79.7 ; Hypertension I10 ; Anemia D64.9 ; Insomnia G47.00 ; Anxiety F41.9 ; Arthritis M19.90 and Migraine G43.[address] 75871- 7633 Mar, [address] 22565- 2331 Feb, [address] 64326- 5522 Feb, Arthritis M19.90 and Anxiety F41.9 [place] [address] 72278- 4295 Feb, [place] [address] 40670- 8239 Feb, [address] 64850- 4009 Feb, [place] [address] 31180- 1639 Feb, [place] [address] 45753- 3217 Feb, Anxiety F41.9 [facility] [id number] [place] [address] 05086- 7272 15 Feb, 2015 [facility] [id number] [place] [address] 33860- 3010 Feb, [facility] [id number] [place] [address] 97081- 9741 Feb, 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 and Fibromyalgia M79.7 [facility] [id number] [place] [address] 79840- 8854 Feb, [facility] [id number] [place] [address] 16100- 7757 Jan, [facility] [id number] [place] [address] 38017- 8693 Jan, [facility] [id number] [place] [address] 11767- 4513 Jan, [facility] [id number] [place] [address] 86093- 0420 24 Jan, 2015 [facility] [id number] [place] [address] 59259- 6589 16 Jan, 2015 [facility] [id number] [place] [address] 47520- 8405 Jan, [facility] [id number] [place] [address] 60765- 4934 Jan, [facility] [address] [address]- 2880 Jan, [facility] [id number] [place] [address] 00980- 1622 Dec, [facility] [address] [address]- 9799 17 Dec, 2014 Left knee pain M25.562 [facility] [address] [id number] [address] 3228 17 Dec, 2014 Left knee pain M25.562 [facility] [id number] [place] [address] 94362- 6719 16 Dec, 2014 Fibromyalgia M79.7 ; Hypertension I10 and Arthritis M19.90 [facility] [address] [id number] [address]- 0716 Dec, [facility] [id number] [place] [address] 71451- 2685 Dec, [facility] [id number] [place] [address] 28693- 2859 Dec, [facility] [id number] [place] [address] 52540- 9614 Dec, [facility] [id number] [place] [address] 49826- 9501 Nov, [facility] [id number] [place] [address] 78543- 9829 Nov, [facility] [id number] [place] [address] 17343- 3510 Nov, [facility] [id number] [place] [address] 97991- 6027 Nov, Hypertension I10 [facility] [address] [address]- 3086 23 Sep, 2014 [facility] [address] [id number] [address]- 7524 17 Sep, 2014 [facility] [id number] [place] [address] 35306- 8709 04 Sep, 2014 [facility] [id number] [address]- 7362 04 Sep, 2014 [facility] [address] [address]- 2956 03 Sep, 2014 [facility] [address] [facility] [id number], [place] [address]- 6999 Sep, [facility] [address] [id number], [place] [address]- 4076 Sep, [facility] [place] [address] [id number], [place] [address]- 2232 Sep, Hip pain associated with recalled total hip arthroplasty hardware 996.77 [facility] [place] [facility] [address] [id number], [place] [address]- 3236 Sep, [facility] [place] [facility] [address] [id number] [place] [address]- 0838 Sep, [facility] [address] [id number], [place] [address]- 0522 Sep, [facility] [address] [facility] [id number], [place] [address]- 2417 Aug, [facility] [address] [id number], [place] [address]- 2410 Jul, [facility] [address] [id number], [place] [address]- 9048 June, [facility] [address] [facility] [id number], [place] [address]- 7096 June, [facility] [place] [facility] [address] [id number], [place] [address]- 3370 June, [facility] [place] [facility] [address] [id number], [place] [address]- 7184 June, [facility] [place] [facility] [address] [id number], [place] [address]- 9893 June, [facility] [place] [facility] [address] [id number], [place] [address]- 8805 June, [facility] [place] [facility] [address] [id number], [place] [address]- 4021 May, [facility] [place] [facility] [address] [id number] [place] [address]- 5033 14 May, 2014 [facility] [place] [facility] [address] [id number] [place] [address]- 4790 13 May, 2014 [facility] [place] [facility] [address] [id number] [place] [address]- 7370 30 Apr, 2014 [facility] [place] [facility] [address] [id number] [place] [address]- 7836 30 Apr, 2014 [facility] [place] [facility] [address] [id number] [place] [address]- 8844 19 Apr, 2014 [facility] [place] [facility] [address] [id number] [place] [address]- 1681 19 Apr, 2014 [facility] [place] [facility] [address] [id number] [place] [address]- 6822 Apr, [facility] [place] [facility] [address] [id number] [place] [address]- 9943 Apr, [facility] [place] [facility] [address] [id number] [place] [address]- 4621 Apr, [facility] [place] [facility] [address] [id number] [place] [address]- 1941 Apr, [facility] [place] [facility] [address] [id number] [place] [address]- 2343 Apr, [facility] [place] [facility] [address] [id number] [place] [address]- 7603 05 Apr, 2014 [facility] [place] [facility] [address] [id number] [place] [address]- 3470 Apr, [facility] [place] [facility] [address] [id number] [place] [address]- 9510 Mar, [facility] [place] [facility] [address] [id number] [place] [address]- 1356 Mar, [facility] [place] [facility] [address] [id number] [place] [address]- 5545 16 Mar, 2014 [facility] [place] [facility] [address] [id number] [place] [address]- 3768 16 Mar, 2014 [facility] [place] [facility] [address] [id number] [place] [address]- 9708 Mar, [facility] [place] [facility] [address] [id number] [place] [address]- 2507 Mar, [facility] [place] [facility] [address] [id number] [place] [address]- 6717 15 Feb, 2014 [facility] [place] [facility] [address] [id number] [place] [address]- 5040 Feb, [facility] [place] [facility] [address] [id number] [place] [address]- 4098 Feb, [facility] [place] [facility] [address] [id number] [place] [address]- 3309 Feb, [facility] [place] [facility] [address] [id number] [place] [address]- 5027 Jan, [facility] [place] [facility] [address] [id number] [place] [address]- 4463 Jan, [facility] [place] [facility] [address] [id number] [place] [address]- 5380 Jan, [facility] [place] [facility] [address] [id number] [place] [address]- 8870 Jan, [facility] [place] [facility] [address] [id number] [place] [address]- 9493 Dec, [facility] [place] [facility] [address] [id number] [place] [address]- 9428 Dec, [facility] [place] [facility] [address] [id number] [place] [address]- 2175 Dec, [facility] [place] [facility] [address] [id number] [place] [address]- 2751 Dec, [facility] [place] [facility] [address] [id number] [place] [address]- 2822 Dec, [facility] [place] [facility] [address] [id number] [place] [address]- 6574 Dec, [facility] [place] [facility] [address] [id number] [place] [address]- 1065 Dec, [facility] [place] [facility] [address] [id number] [place] [address]- 4217 Dec, [facility] [place] [facility] [address] [id number] [place] [address]- 4837 Dec, [facility] [place] [facility] [address] [id number] [place] [address]- 6435 Dec, [facility] [place] [facility] [address] [id number] [place] [address]- 1741 Dec, [facility] [place] [facility] [address] [id number] [place] [address]- 8703 Nov, [facility] [place] [facility] [address] [id number] [place] [address]- 0947 28 Nov, 2013 [facility] [place] [facility] [address] [id number] [place] [address]- 1435 28 Nov, 2013 [facility] [place] [facility] [address] [id number] [place] [address]- 4356 Nov, [facility] [place] [facility] [address] [id number] [place] [address]- 7177 17 Nov, 2013 [facility] [place] [facility] [address] [id number], [place] [address]- 1290 15 Nov, 2013 [facility] [place] [facility] [address] [id number] [place] [address]- 7963 15 Nov, 2013 [facility] [place] [facility] [address] [id number], [place] [address]- 1701 15 Nov, 2013 [facility] [place] [facility] [address] [id number], [place] [address]- 7258 15 Nov, 2013 [facility] [place] [facility] [address] [id number] [place] [address]- 5940 14 Nov, 2013 [facility] [place] [facility] [address] [id number] [place] [address]- 1830 14 Nov, 2013 [facility] [place] [facility] [address] [id number] [place] [address]- 3513 14 Nov, 2013 [facility] [place] [facility] [address] [id number] [place] [address]- 4980 14 Nov, 2013 [facility] [place] [facility] [address] [id number] [place] [address]- 9366 13 Nov, 2013 [facility] [place] [facility] [address] [id number] [place] [address]- 9777 13 Nov, 2013 [facility] [place] [facility] [address] [id number] [place] [address]- 1259 11 Nov, 2013 [facility] [place] [facility] [address] [id number] [place] [address]- 5867 11 Nov, 2013 [facility] [place] [facility] [address] [id number] [place] [address]- 2225 07 Nov, 2013 [facility] [place] [facility] [address] [id number] [place] [address]- 0206 07 Nov, 2013 [facility] [place] [facility] [address] [id number] [place] [address]- 5089 07 Nov, 2013 [facility] [place] [facility] [address] [id number] [place] [address]- 0901 07 Nov, 2013 [facility] [place] [facility] [address] [id number] [place] [address]- 0670 30 Oct, 2013 [facility] [place] [facility] [address] [id number] [place] [address]- 0579 30 Oct, 2013 [facility] [place] [facility] [address] [id number] [place] [address]- 6335 26 Oct, 2013 [facility] [place] [facility] [address] [id number] [place] [address]- 1395 Oct, 2013 [facility] [place] [facility] [address] [id number] [place] [address]- 1132 Oct, 2013 [facility] [place] [facility] [address] [id number] [place] [address]- 1366 22 Oct, 2013 [facility] [place] [facility] [address] [id number] [place] [address]- 5028 18 Oct, 2013 [facility] [place] [facility] [address] [id number] [place] [address]- 1200 18 Oct, 2013 [facility] [place] [facility] [address] [id number] [place] [address]- 2695 Oct, 2013 [facility] [place] [facility] [address] [id number] [place] [address]- 3413 Oct, 2013 [facility] [place] [facility] [address] [id number] [place] [address]- 9280 Oct, 2013 [facility] [place] [facility] [address] [id number] [place] [address]- 4656 Oct, 2013 [facility] [place] [facility] [address] [id number] [place] [address]- 2785 Oct, [facility] [place] [facility] [address] [id number] [place] [address]- 5908 Oct, [facility] [place] [facility] [address] [id number], [place] [address]- 9886 Sep, [facility] [place] [facility] [address] [id number], [place] [address]- 6791 Sep, [facility] [place] [facility] [address] [id number] [place] [address]- 2381 Sep, [facility] [place] [facility] [address] [id number] [place] [address]- 9603 Sep, [facility] [place] [facility] [address] [id number] [place] [address]- 3591 Sep, [facility] [place] [facility] [address] [id number] [place] [address]- 3890 Sep, [facility] [place] [facility] [address] [id number] [place] [address]- 9017 Sep, [facility] [place] [facility] [address] [id number] [place] [address]- 0083 Sep, [facility] [place] [facility] [address] [id number] [place] [address]- 5990 Sep, [facility] [place] [facility] [address] [id number] [place] [address]- 5388 Sep, [facility] [place] [facility] [address] [id number] [place] [address]- 8622 Sep, [facility] [place] [facility] [address] [id number] [place] [address]- 8205 Sep, [facility] [place] [facility] [address] [id number] [place] [address]- 8907 Sep, [facility] [place] [facility] [address] [id number] [place] [address]- 8702 Sep, [facility] [place] [facility] [address] [id number] [place] [address]- 0035 Sep, [facility] [place] [facility] [address] [id number] [place] [address]- 3099 Sep, [facility] [place] [facility] [address] [id number] [place] [address]- 8281 Sep, [facility] [place] [facility] [address] [id number] [place] [address]- 3407 Sep, [facility] [place] [facility] [address] [id number] [place] [address]- 4482 Aug, [facility] [place] [facility] [address] [id number] [place] [address]- 3320 Aug, [facility] [place] [facility] [address] [id number] [place] [address]- 0259 Aug, [facility] [place] [facility] [address] [id number] [place] [address]- 9945 Aug, [facility] [place] [facility] [address] [id number] [place] [address]- 2581 Aug, [facility] [place] [facility] [address] [id number] [place] [address]- 1081 Aug, [facility] [place] [facility] [address] [id number] [place] [address]- 4653 Jul, [facility] [place] [facility] [address] [id number] [place] [address]- 5633 Jul, [facility] [place] [facility] [address] [id number] [place] [address]- 2888 Jul, [facility] [place] [facility] [address] [id number] [place] [address]- 6085 Jul, [facility] [place] [facility] [address] [id number] [place] [address]- 5224 June, [facility] [place] [facility] [address] [id number] [place] [address]- 4870 June, [facility] [place] [facility] [address] [id number] [place] [address]- 2880 June, [facility] [place] [facility] [address] [id number] [place] [address]- 3942 June, [facility] [place] [facility] [address] [id number] [place] [address]- 9613 June, [facility] [place] [facility] [address] [id number] [place] [address]- 3913 June, [facility] [place] [facility] [address] [id number] [place] [address]- 0425 June, [facility] [place] [facility] [address] [id number] [place] [address]- 1539 May, [facility] [place] [facility] [address] [id number] [place] [address]- 5416 May, [facility] [place] [facility] [address] [id number] [place] [address]- 0675 May, [facility] [place] [facility] [address] [id number] [place] [address]- 1950 May, [facility] [place] [facility] [address] [id number] [place] [address] May, [facility] [place] [facility] [address] [id number] [place] [address] May, [facility] [place] [facility] [address] [id number] [place] [address] Apr, [facility] [place] [facility] [address] [id number] [place] [address] 31 Apr, 2013 [facility] [place] [facility] [address] [id number] [place] [address] Apr, [facility] [place] [facility] [address] [id number] [place] [address] Apr, [facility] [place] [facility] [address] [id number] [place] [address] Apr, [facility] [place] [facility] [address] [id number] [place] [address] 14 Apr, 2013 [facility] [place] [facility] [address] [id number] [place] [address] Apr, [facility] [place] [facility] [address] [id number] [place] [address] 12 Apr, 2013 [facility] [place] [facility] [address] [id number] [place] [address] 10 Apr, 2013 [facility] [place] [facility] [address] [id number] [place] [address] 10 Apr, 2013 [facility] [place] [facility] [address] [id number] [place] [address] 04 Apr, 2013 [facility] [place] [facility] [address] [id number] [place] [address] Apr, [facility] [place] [facility] [address] [id number] [place] [address] Apr, [facility] [place] [facility] [address] [id number] [place] [address] Apr, [facility] [place] [facility] [address] [id number] [place] [address] Mar, [facility] [place] [facility] [address] [id number] [place] [address] Mar, [facility] [place] [facility] [address] [id number] [place] [address] Mar, [facility] [place] [facility] [address] [id number] [place] [address] Feb, [facility] [place] [facility] [address] [id number] [place] [address] Feb, [facility] [place] [facility] [address] [id number] [place] [address] Feb, [facility] [place] [facility] [address] [id number] [place] [address] Feb, [facility] [place] [facility] [address] [id number] [place] [address] Feb, [facility] [place] [facility] [address] [id number] [place] [address] Feb, [facility] [place] [facility] [address] [id number] [place] [address] Feb, [facility] [place] [facility] [address] [id number] [place] [address] Feb, [facility] [place] [facility] [address] [id number] [place] [address] Feb, [facility] [place] [facility] [address] [id number] [place] [address] Feb, [facility] [place] [facility] [address] [id number] [place] [address] Jan, [facility] [place] [facility] [address] [id number] [place] [address] Jan, [facility] [place] [facility] [address] [id number] [place] [address] Jan, [facility] [place] [facility] [address] [id number] [place] [address] Jan, [facility] [place] [facility] [address] [id number] [place] [address] Jan, [facility] [place] [facility] [address] [id number] [place] [address] Jan, [facility] [place] [facility] [address] [id number] [place] [address] Jan, [facility] [place] [facility] [address] [id number] [place] [address] Jan, [facility] [place] [facility] [address] [id number] [place] [address]- [address] Jan, [facility] [place] [facility] [address] [id number] [place] [address]- [address] Jan, [facility] [place] [facility] [address] [id number], [place] [address] 17 Jan, 2013 [facility] [place] [facility] [address] [id number], [place] [address] 17 Jan, 2013 [facility] [place] [facility] [address] [id number] [place] [address]67 16 Jan, 2013 [facility] [place] [facility] [address] [id number] [place] [address]- [address]46 11 Jan, 2013 [facility] [place] [facility] [address] [id number] [place] [address] Jan, [facility] [place] [facility] [address] [id number] [place] [address] Jan, [facility] [place] [facility] [address] [id number] [place] [address] Jan, [facility] [place] [facility] [address] [id number] [place] [address] Jan, [facility] [place] [facility] [address] [id number] [place] [address]- [address] Jan, [facility] [place] [facility] [address] [id number] [place] [address]- [address] Jan, [facility] [place] [facility] [address] [id number] [place] [address] Jan, [facility] [place] [facility] [address] [id number] [place] [address]- [address] Dec, [facility] [place] [facility] [address] [id number] [place] [address] Dec, [facility] [place] [facility] [address] [id number] [place] [address] Dec, [facility] [place] [facility] [address] [id number] [place] [address] 39[address] Dec, [facility] [place] [facility] [address] [facility] [id number] [place] [address]- [address] Dec, [facility] [place] [facility] [address] [id number] [place] [address]- [address]44 Dec, [facility] [place] [facility] [address] [id number], [place] [address] Dec, [facility] [place] [facility] [address] [id number] [place] [address]- [address]846 Dec, [facility] [place] [facility] [address] [facility] [id number] [place] [address] Dec, [facility] [place] [facility] [address] [id number], [place] [address]- [address] Dec, [facility] [place] [facility] [address] [id number] [place] [address]- [address] Nov, [facility] [facility] [address] [id number] [place] [address] Nov, [facility] [place] [facility] [address] [id number] [place] [address] Nov, [facility] [place] [facility] [address] [id number] [place] [address] 0862 Nov, [facility] [place] [facility] [address] [id number] [place] [address] 0915 Nov, [facility] [place] [facility] [address] [id number] [place] [address] 6980 Nov, [facility] [place] [facility] [address] [id number] [place] [address] 8223 Nov, [facility] [place] [facility] [address] [id number] [place] [address]- 7462 Nov, [facility] [place] [facility] [address] [id number] [place] [address]- 6290 Nov, [facility] [place] [facility] [address] [id number] [place] [address] 2781 Nov, [facility] [place] [facility] [address] [id number] [place] [address]- 7975 26 Oct, 2012 [facility] [place] [facility] [address] [id number], [place] [address] 26 Oct, 2012 [facility] [place] [facility] [address] [id number] [place] [address]- 7173 26 Oct, 2012 [facility] [place] [facility] [address] [id number] [place] [address]- 4012 25 Oct, 2012 [facility] [place] [facility] [address] [id number] [place] [address]- 6548 06 Oct, 2012 [facility] [place] [facility] [address] [id number] [place] [address]- 2546 Sep, [facility] [place] [facility] [address] [id number] [place] [address]- 6588 Sep, [facility] [place] [facility] [address] [id number] [place] [address] 1751 Aug, [facility] [place] [facility] [address] [id number] [place] [address] 5417 Aug, [facility] [place] [facility] [address] [id number] [place] [address]- 9100 Aug, [facility] [place] [facility] [address] [id number] [place] [address]- 4153 Aug, [facility] [place] [facility] [address] [id number] [place] [address] 1921 Aug, [facility] [place] [facility] [address] [id number] [place] [address]- 2789 Aug, [facility] [place] [facility] [address] [id number] [place] [address]- 0725 Aug, [facility] [place] [facility] [address] [id number] [place] [address]- 7703 Jul, [facility] [place] [facility] [address] [id number] [place] [address]- 6685 Jul, [facility] [place] [facility] [address] [id number] [place] [address]- 5909 June, [facility] [place] [facility] [address] [id number] [place] [address]- 8597 June, [facility] [place] [facility] [address] [id number] [place] [address]- 0075 June, [facility] [place] [facility] [address] [id number] [place] [address]- 6262 June, [facility] [place] [facility] [address] [id number] [place] [address]- 7446 June, [facility] [place] [facility] [address] [id number] [place] [address]- 1278 June, [facility] [address] [id number] [place] [address]- 0255 June, [facility] [address] [id number] [place] [address] 2546 June, [facility] [address] [id number] [place] [address]- 2086 June, [facility] [address] [id number] [place] [address] 2006 June, [facility] [address] [id number] [place] [address]- 9325 June, [facility] [address] [id number] [place] [address]- 9145 May, [facility] [address] [id number] [place] [address]- 7181 May, [facility] [address] [id number] [place] [address]- 6132 May, [facility] [address] [id number] [place] [address]- 0834 May, [facility] [address] [id number] [place] [address]- 4953 Apr, [facility] [address] [id number] [place] [address]- 4180 Apr, [facility] [address] [id number] [place] [address]- 2547 Apr, [facility] [address] [id number] [place] [address]- 2206 Mar, [facility] [address] [id number] [place] [address]- 2546 Mar, [facility] [address] [id number] [place] [address]- 4461 Feb, [facility] [address] [id number] [place] [address]- 0282 28 Feb, 2012 [facility] [facility] [address] [id number] [place] [address]- 1427 Feb, [facility] [address] [id number] [place] [address]- 5515 Feb, [facility] [address] [id number] [place] [address]- 1516 16 Feb, 2012 [facility] [address] [id number] [place] [address]- 1052 14 Feb, 2012 [facility] [address] [id number] [place] [address]- 7211 08 Feb, 2012 [facility] [address] [id number] [place] [address]- 2056 31 Jan, 2012 [facility] [address] [id number] [place] [address]- 1257 31 Jan, 2012 [facility] [address] [id number] [place] [address]- 6818 Jan, [facility] [address] [id number] [place] [address]- 3324 17 Jan, 2012 [facility] [address] [id number] [place] [address]- 7080 17 Jan, 2012 [facility] [address] [id number] [place] [address]- 5586 11 Jan, 2012 [facility] [address] [id number] [place] [address]- 0282 11 Jan, 2012 [facility] [address] [id number] [place] [address]- 3935 10 Jan, 2012 [facility] [address] [id number] [place]293 10 Jan, 2012 [facility] [address] [id number] [place] [address]- 0133 Jan, [facility] [address] [id number] [place] [address]- 1359 Jan, [facility] [address] [id number] [place] [address]- 2752 Dec, [facility] [address] [id number] [place] [address]- 1896 Dec, [facility] [address] [id number] [place] [address]- 8706 Dec, [facility] [address] [id number] [place] [address]- 5903 Dec, [facility] [address] [id number] [place] [address]- 8690 Nov, [facility] [address] [id number] [place] [address]- 3546 Nov, [facility] [address] [id number] [place] [address]- 7031 08 Nov, 2011 [facility] [address] [id number] [place] [address]- 0005 27 Oct, 2011 [facility] [address] [facility] [id number] [place] [address]- 2749 24 Sep2011 [facility] [address] [id number] [place] [address]- 3910 21 Sep, 2011 [facility] [address] [id number] [place] [address]- 2549 10 Sep, 2011 [facility] [address] [id number] [place] [address]- 8609 07 Sep, 2011 [facility] [address] [facility] [id number] [place] [address]- 0876 04 Sep, 2011 [facility] [address] [facility] [id number] [place] [address]- 0354 04 Sep, 2011 [facility] [address] [id number] [place] [address]- 0182 Sep, [facility] [address] [id number] [place] [address]- 3726 Sep, [facility] [address] [id number] [place] [address]- 6396 Sep, [facility] [address] [id number] [place] [address]- 2169 Sep, [facility] [address] [id number] [place] [address]- 1569 Sep, [facility] [address] [id number] [place] [address]- 9773 Aug, [facility] [address] [id number] [place] [address]- 1345 Aug, [facility] [address] [id number] [place] [address]- 3299 Aug, [facility] [facility] [address] [id number] [place] [address]- 3030 Aug, [facility] [facility] [address] [id number] [place] [address]- 2024 Aug, [facility] [address] [id number] [place] [address]- 4513 Aug, [facility] [address] [id number] [place] [address]- 7194 Aug, [facility] [address] [id number] [place] [address]- 6555 Jul, [facility] [address] [id number] [place] [address]- 4157 Jul, [facility] [address] [id number] [place] [address]- 0597 Jul, [facility] [address] [id number] [place] [address]- 6134 Jul, [facility] [address] [id number] [place] [address]- 3589 Jul, [facility] [facility] [address] [id number] [place] [address]- 5524 Jul, [facility] [address] [id number] [place] [address]- 1998 Jul, [facility] [address] [id number] [place] [address]- 4686 Jul, [facility] [place] [facility] [address] [id number] [place] [address]- 4798 Jul, [facility] [place] [facility] [address] [id number] [place] [address]- 1128 June, [facility] [place] [facility] [address] [id number] [place] [address]- 9325 June, [facility] [place] [facility] [address] [id number] [place] [address]- 0286 June, [facility] [place] [facility] [address] [id number] [place] [address]- 0472 June, [facility] [place] [facility] [address] [id number] [place] [address]- 2426 June, [facility] [place] [facility] [address] [id number] [place] [address]- 3756 June, [facility] [place] [facility] [address] [id number] [place] [address]- 3273 June, [facility] [place] [facility] [address] [id number] [place] [address]- 2636 June, [facility] [place] [facility] [address] [id number] [place] [address]- 0442 May, [facility] [place] [address] [id number] [place] [address]- 5489 May, [facility] [place] [facility] [address] [id number] [place] [address]- 0336 20 May, 2011 [facility] [address] [id number] [place] [address]- 1276 19 May, 2011 [facility] [place] [facility] [address] [id number] [place] [address] 2546 16 May, 2011 [facility] [address] [id number] [place] [address]- 5746 16 May, 2011 [facility] [address] [id number] [place] [address] 2546 02 May, 2011 [facility] [address] [id number] [place] [address]- 7026 27 Apr, 2011 [facility] [address] [id number] [place] [address]- 6936 Apr, [facility] [address] [id number] [place] [address]- 7676 Apr, [facility] [address] [id number] [place] [address]- 1109 19 Apr, 2011 [facility] [address] [id number] [place] [address]- 9767 Apr, [facility] [address] [id number] [place] [address]- 3819 06 Apr, 2011 [facility] [address] [id number] [place] [address]- 7946 Apr, [facility] [address] [id number] [place] [address]- 1799 20 Mar, 2011 [facility] [place] [facility] [address] [id number] [place] [address]- 6116 20 Mar, 2011 [facility] [address] [id number] [place] [address]- 6056 14 Mar, 2011 [facility] [address] [id number] [place] [address]- 7868 Mar, [facility] [address] [id number] [place] [address]- 8376 Mar, [facility] [place] [facility] [address] [id number] [place] [address]- 7896 Mar, [facility] [place] [facility] [address] [id number] [place] [address]- 2526 Mar, [facility] [place] [facility] [address] [id number] [place] [address]- 0036 Feb, [facility] [place] [facility] [address] [id number] [place] [address]- 1923 Feb, [facility] [place] [facility] [address] [id number] [place] [address]- 9666 Feb, [facility] [place] [facility] [address] [id number] [place] [address]- 9138 Feb, [facility] [place] [facility] [address] [id number] [place] [address]- 1313 Feb, [facility] [place] [facility] [address] [id number] [place] [address]- 7425 Feb, [facility] [place] [facility] [address] [id number] [place] [address]- 0144 Feb, [facility] [place] [facility] [address] [id number] [place] [address]- 3706 Feb, [facility] [place] [facility] [address] [id number] [address]- 4266 Feb, [facility] [place] [facility] [address] [id number] [place] [address]- 9066 Feb, [facility] [place] [facility] [address] [id number] [place] [address]- 3526 Jan, [facility] [place] [facility] [address] [id number] [place] [address]- 8816 Jan, [facility] [place] [facility] [address] [id number] [place] [address]- 3891 Jan, [facility] [place] [facility] [address] [id number] [place] [address]- 9206 Jan, [facility] [place] [facility] [address] [id number] [place] [address]- 4356 Jan, [facility] [place] [facility] [address] [id number] [place] [address]- 3574 Jan, [facility] [place] [facility] [address] [id number] [place] [address]- 6245 15 Jan, 2011 [facility] [place] [facility] [address] [id number] [place] [address]- 7383 15 Jan, 2011 [facility] [place] [facility] [address] [id number] [place] [address]- 7613 Jan, [facility] [place] [facility] [address] [id number] [place] [address]- 2485 Jan, [facility] [place] [facility] [address] [id number] [place] [address]- 4854 Jan, [facility] [place] [facility] [address] [id number] [place] [address]- 4558 17 Dec, 2010 [facility] [facility] [address] [id number] [place] [address]- 7053 17 Dec, 2010 [facility] [place] [facility] [address] [id number] [place] [address]- 4293 17 Dec, 2010 [facility] [place] [facility] [address] [id number] [place] [address]- 6493 16 Dec, 2010 [facility] [place] [facility] [address] [id number] [place] [address]- 3061 14 Dec, 2010 [facility] [place] [facility] [address] [id number] [place] [address]- 1371 09 Dec, 2010 [facility] [place] [facility] [address] [id number] [place] [address]- 9753 Dec, [facility] [place] [facility] [address] [id number] [place] [address]- 3755 Dec, [facility] [place] [facility] [address] [id number] [place] [address]- 9867 Dec, [facility] [place] [facility] [address] [id number] [place] [address]- 5655 Nov, [facility] [place] [facility] [address] [id number] [place] [address]- 3223 Nov, [facility] [place] [facility] [address] [id number] [place] [address]- 6088 Nov, [facility] [place] [facility] [address] [id number] [place] [address]- 8710 Nov, [facility] [place] [facility] [address] [id number] [place] [address]- 2373 Nov, [facility] [place] [facility] [address] [id number] [place] [address]- 8848 Nov, [facility] [place] [facility] [address] [id number] [place] [address]- 9775 Aug, [facility] [place] [facility] [address] [id number] [place] [address]- 6487 Feb, [facility] [place] [facility] [address] [id number] [place] [address]- 3900 14 Jan, 2010 [facility] [place] [facility] [address] [id number] [place] [address]- 2499 Jan, [facility] [place] [facility] [address] [id number] [place] [address]- 3786 Jan, [facility] [place] [facility] [address] [id number] [place] [address]- 4797 Jan, [facility] [place] [facility] [address] [id number] [place] [address]- 4732 Jan, [facility] [place] [facility] [address] [id number] [place] [address]- 3117 Dec, [facility] [address] [id number] [address]44 Dec, [facility] [address] [id number] [address]- 0834 Dec, [facility] [address] [id number] [address]- 0488 Dec, [facility] [address] [id number] [address]- 7571 Nov, [facility] [address] [id number] [address]677 Nov, [facility] [address] [id number] 3177 Nov, IMMUNIZATIONS No Known Immunizations SOCIAL HISTORY Never Assessed REASON FOR VISIT Fentanyl due 08/21 PLAN OF CARE VITAL SIGNS MEDICATIONS Medication Instructions Dosage Frequency Start Date End Date Duration Status Fentanyl 50 MCG/HR Transdermal 48 hrs 1 patch to skin Aug, 30 days Active RESULTS No Results PROCEDURES [...]
--- OUTSIDE RECORDS SUMMARY | 2018-01-13 22:06 | XMS REPORT ---
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 Active 509791963 Problem Hypertension I10 Active 93257966 Problem Arthritis M19.90 Active 5233839 Problem 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 Active 03353308 Problem Anxiety F41.9 Active 63780863 Problem Unspecified episodic mood disorder F39 Active 20685231 Problem Left hip pain M25.552 Active 81529195 ALLERGIES No Information ENCOUNTERS Encounter Location Date Diagnosis [facility] [address] [facility] [id number] [address] Nov, [facility] [id number], [place] [address] Oct, [facility] [address] [facility] [id number], [place] [address] Sep, [facility] [address] [place] [address] 01269- 7689 Sep, Gastroesophageal reflux disease, esophagitis presence not specified K21.9 and Other chronic pain G89.29 [facility] [id number] [place] [address] 12302- 2820 Sep, [facility] [id number] [place] [address] 14214- 2380 Sep, [facility] [id number] [place] [address] 38838- 3307 Sep, Chronic hepatitis C without hepatic coma B18.2 [facility] [address] [address]- 5890 Sep, 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 [address] [id number] [place] [address] 97257- 6673 Sep, Arthritis M19.90 [facility] [id number] [place] [address] 40025- 9696 Sep, [facility] [id number] [place] [address] 20856- 0046 Sep, Unspecified episodic mood disorder F39 [facility] [id number] [place] [address] 57144- 4237 Aug, [facility] [place] [id number] [place] [address] [id number] Aug, [facility] [id number] [place] [address] 46636- 3567 Aug, Arthritis M19.90 [facility] [id number] [place] [address] 02835- 2111 Aug, [facility] [id number] [place] [address] 17332- 8245 Aug, Obesity (BMI 30.0-34.9) E66.9 ; Unspecified episodic mood disorder F39 and Hypertension I10 [facility] [address], [place] [address] 26[address] Aug, Unspecified episodic mood disorder F39 [facility] [address], [place] [address] 17[address] Aug, [facility] [address], [place] [address] 4365 Jul, Unspecified episodic mood disorder F39 [facility] [address], [place] [address] 3171 Jul, [facility] [id number] [place] [address] 76985- 8768 Jul, Arthritis M19.90 [facility] [address], [place] [address] 53[address] Jul, Left hip pain M25.552 ; Hypertension I10 ; Other obesity due to excess calories E66.09 and Body mass index (BMI) of 34.0-34.9 in adult Z68.34 [facility] [address], [place] [address] 4111 Jul, Unspecified episodic mood disorder F39 [facility] [address], [place] [address] 6735 June, Gastroesophageal reflux disease, esophagitis presence not specified K21.9 [facility] [address], [place] [address] 0[address] June, [facility] [address], [place] [address] 8107 June, [facility] [id number], [place] [address] 5046 June, Arthritis M19.90 [facility] [address], [place] [address] 4303 June, [facility] [address] [id number], [place] [address] June, [facility] [address] [place] [address] 17610- 9797 June, Unspecified episodic mood disorder F39 [facility] [id number] [place] [address] 45853- 9177 May, Unspecified episodic mood disorder F39 [facility] [id number] [place] [address] 85393- 7433 May, [facility] [id number] [place] [address] 81468- 1693 May, Arthritis M19.90 [facility] [id number] [place] [address] 60891 -3909 May, Dysuria R30.0 ; Abscess L02.91 and Acute cystitis without hematuria N30.00 [facility] [id number] [place] [address] 81172- 1310 May, Other disorder of impulse control 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 ; Unspecified episodic mood disorder F39 ; Combined drug dependence excluding opioids, 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 ; Anxiety F41.9 and Other psychoactive substance dependence, 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 [facility] [address] [place] [address] 89867- 6454 May, [facility] [address] [place] [address] 94542- 9680 May, Other disorder of impulse control F63.89 ; Unspecified episodic mood disorder F39 ; Combined drug dependence excluding opioids, 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 ; Other psychoactive substance dependence, 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 and Anxiety F41.9 [facility] [id number] [place] [address] 71563- 9043 May, Other chronic pain G89.29 ; Left hip pain M25.552 ; Hypertension I10 ; 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, 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 and Unspecified episodic mood disorder F39 [facility] [id number] [place] [address] 49567- 4790 Apr, [facility] [address] [place] [address] 89994 -4538 Apr, Neck pain M54.2 ; Left hip pain M25.552 and Fall, initial encounter W19.XXXA [facility] [id number] [place] [address] 33028- 7288 Apr, Unspecified episodic mood disorder F39 ; Combined drug dependence excluding opioids, 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 ; Anxiety F41.9 ; Other psychoactive substance dependence, 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 and Other disorder of impulse control F63.89 [facility] [id number] [place] [address] 17239- 2171 Apr, [facility] [id number] [place] [address] 23663- 1421 Apr, Arthritis M19.90 and Unspecified episodic mood disorder F39 [facility] [id number] [place] [address] 31668- 3865 Apr, Unspecified episodic mood disorder F39 [facility] [id number] [place] [address] 40320- 0263 Apr, [facility] [id number] [place] [address] 15298- 5396 Apr, [facility] [id number] [place] [address] 71521- 9124 Apr, Unspecified episodic mood disorder F39 ; Combined drug dependence excluding opioids, 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 ; Anxiety F41.9 ; Other psychoactive substance dependence, 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 and Other disorder of impulse control F63.89 [facility] [id number] [place] [address] 18035- 8757 Mar, Unspecified episodic mood disorder F39 [facility] [id number] [place] [address] 93123- 0356 Mar, Gastroesophageal reflux disease, esophagitis presence not specified K21.9 [place] [address], [place] [address]- 3[address] Mar, Arthritis M19.90 and Unspecified episodic mood disorder F39 [facility] [address], [place] [address]- 0246 Feb, [facility] [address], [place] [address]- 0586 Feb, [facility] [address] [place] [address] 23943- 9247 Feb, [facility] [address] [place] [address] 71614- 3206 Feb, Arthritis M19.90 [facility] [address], [place] [address]- 8369 Feb, Non-pressure chronic ulcer of right calf, 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 ; Unspecified episodic mood disorder F39 and Left hip pain M25.552 [facility] [address], [place] [address]- 6909 Feb, [facility] [address], [place] [address]- 7365 Feb, [facility] [address], [place] [address]- 2543 Jan, Arthritis M19.90 [facility] [address], [place] [address]- 2544 Jan, Left hip pain M25.552 and Non-pressure chronic ulcer of right calf, 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 [facility] [address], [place] [address]- 1606 Jan, Chronic hepatitis C without hepatic coma B18.2 [facility] [id number], [place] [address]- 5136 Jan, Encounter for immunization Z23 ; Venous insufficiency ( chronic) (peripheral) I87.2 ; Non-pressure chronic ulcer of unspecified calf limited to breakdown of skin L97.201 and Gastroesophageal reflux disease, esophagitis presence not specified K21.9 [facility] [id number] [place] [address] 21000 2546 Jan, [facility] [id number] [place] [address] 80701 2546 Jan, Chronic hepatitis C without hepatic coma B18.2 and Encounter for immunization Z23 [facility] [id number] [place] [address] 54683 2546 Jan, Arthritis M19.90 [facility] [id number] [place] [address] 08295- 0116 Jan, [facility] [id number] [place] [address] 72877- 5627 Dec, [facility] [id number] [place] [address] 47157- 1584 Dec, Unspecified episodic mood disorder F39 [facility] [id number] [place] [address] 83976 2546 Dec, Arthritis M19.90 [facility] [id number] [place] [address] 65869 2546 Dec, Arthritis M19.90 [facility] [id number] [place] [address] 93870- 7586 Nov, [facility] [id number] [place] [address] 28794 2544 Nov, [facility] [address] [place] [address] 49536- 2541 Nov, Other psychoactive substance dependence, 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 ; 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, 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 and Chronic hepatitis C without hepatic coma B18.2 [facility] [address], [place] [address]- 9196 Nov, Arthritis M19.90 [facility] [address], [place] [address] Oct, Partial thickness burn of abdomen, initial encounter T21.22XA [facility] [id number] [place] [address] 21534- 8395 Oct, [facility] [id number] [place] [address] 44675- 1707 Sep, Arthritis M19.90 [facility] [id number] [place] [address] 11453- 3156 Sep, [facility] [id number] [place] [address] 63920- 1852 Sep, [facility] [id number] [place] [address] 16389- 5149 Sep, Unspecified episodic mood disorder F39 ; Chronic hepatitis C without hepatic coma B18.2 and Left hip pain M25.552 [facility] [id number] [place] [address] 60638- 9866 Sep, Arthritis M19.90 and Left hip pain M25.552 [facility] [id number] [place] [address] 37863- 6117 Aug, [facility] [id number] [place] [address] 83620- 1397 Aug, [facility] [id number] [place] [address] 74547- 5188 Aug, Chronic hepatitis C without hepatic coma B18.2 [facility] [address] [place] [address] 47387- 2836 Aug, [facility] [id number] [place] [address] 39113- 8879 Aug, Chronic hepatitis C without hepatic coma B18.2 [facility] [id number], [place] [address]- 4059 Aug, 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, 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 [facility] [id number] [place] [address] 60375- 5226 Aug, [facility] [id number] [place] [address] 86586- 4995 Aug, Chronic hepatitis C without hepatic coma B18.2 and Hypertension I10 [facility] [id number] [place] [address] 39768- 1775 Jul, [facility] [id number] [place] [address] 95425- 9378 June, [facility] [address] 41940- 9312 Apr, Fibromyalgia M79.7 ; Left hip pain M25.552 and Decubitus ulcer of sacral region, stage 1 L89.151 [facility] [address] 68492- 0252 Apr, [facility] [id number] [place] [address] 40717- 6138 Apr, [facility] [id number] [place] [address] 11223- 5907 Feb, [facility] [id number] [place] [address] 25861- 6040 Dec, Anxiety F41.9 ; Combined drug dependence excluding opioids, 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 and Unspecified episodic mood disorder F39 [facility] [id number] [place] [address] 68017- 7996 Dec, [facility] [id number] [place] [address] 61721- 8385 Nov, [facility] [id number] [place] [address] 58783- 9730 Nov, [facility] [id number] [place] [address] 16260- 3561 Nov, Other disorder of impulse control F63.89 and Anxiety F41.9 [facility] [address] [place] [address] 98230- 2868 Oct, [facility] [id number] [place] [address] 13655 -1455 14 Oct, 2015 Open wound of left thigh, initial encounter S71.102A [facility] [id number] [place] [address] 44377- 7290 Oct, [facility] [id number] [place] [address] 34676- 2538 Sep, Unspecified episodic mood disorder F39 ; Other disorder of impulse control 312.39 ; Combined drug dependence excluding opioids, 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 and Anxiety F41.9 [facility] [address] [place] [address] 86937- 9676 Sep, Other disorder of impulse control 312.39 ; Combined drug dependence excluding opioids, 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 ; Anxiety F41.9 and Unspecified episodic mood disorder F39 [facility] [id number] [place] [address] 80518- 4176 Sep, Other chronic pain G89.29 [facility] [id number] [place] [address] 63057- 0081 Sep, [facility] [address] [place] [address] 16282- 2942 Sep, [facility] [id number] [place] [address] 24689- 2864 Aug, [facility] [id number] [place] [address] 92174- 7870 Aug, [facility] [id number] [place] [address] 15364- 0024 Aug, [facility] [address] [place] [address] 43520- 0627 Jul, [facility] [id number] [place] [address] 88104- 3835 Jul, [facility] [id number] [place] [address] 23935- 6898 Jul, [facility] [id number] [place] [address] 17412- 9454 Jul, Arthritis M19.90 ; Chronic hepatitis C without hepatic coma B18.2 and Left hip pain M25.552 [facility] [id number] [place] [address] 65200- 9854 Jul, Left knee pain M25.562 [facility] [id number] [place] [address] 233034- 5059 Jul, Combined drug dependence excluding opioids, 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 ; Anxiety F41.9 ; Other disorder of impulse control 312.39 and Unspecified episodic mood disorder F39 [facility] [id number] [place] [address] 40488- 0855 Jul, Left knee pain M25.562 [facility] [id number] [place] [address] 71749- 2122 Jul, Left knee pain M25.562 and Left hip pain M25.552 [facility] [id number] [place] [address] 66827- 2793 Jul, [facility] [address] [place] [address] 27558- 5766 June, [facility] [id number] [place] [address] 41520- 5592 June, Combinations of drug dependence excluding opioid type drug, unspecified abuse 304.80 ; Other disorder of impulse control 312.39 ; Unspecified episodic mood disorder F39 and Anxiety F41.9 [facility] [address] [place] [address] 94286- 4415 June, Other fatigue R53.83 ; Headache R51 and Left knee pain M25.562 [facility] [id number], [place] [address]- 6170 June, Unspecified episodic mood disorder F39 ; Combinations of drug dependence excluding opioid type drug, unspecified abuse 304.80 ; Other disorder of impulse control 312.39 and Anxiety F41.9 [facility] [address] [place] [address] 06437- 9036 June, Anxiety F41.9 [facility] [id number] [place] [address] 07438- 7258 June, Pain in left knee M25.562 [facility] [id number] [place] [address] 85764- 2592 June, Anxiety F41.9 and Combinations of drug dependence excluding opioid type drug, unspecified abuse 304.80 [facility] [id number] [place] [address] 63392- 4698 June, Unspecified episodic mood disorder 296.90 ; Combinations of drug dependence excluding opioid type drug, unspecified abuse 304.80 and Other disorder of impulse control 312.39 [facility] [id number] [place] [address] 72758- 4889 June, Anxiety F41.9 and Unspecified episodic mood disorder 296.90 [facility] [id number] [place] [address] 49735- 2050 May, Arthritis M19.90 [facility] [id number] [place] [address] 80338- 2626 May, Arthritis M19.90 [facility] [id number] [place] [address] 47078- 6072 May, Anxiety F41.9 ; Combinations of drug dependence excluding opioid type drug, unspecified abuse 304.80 and Other disorder of impulse control 312.39 [facility] [address] [place] [address] 77122- 5141 May, Left knee pain M25.562 [facility] [id number] [place] [address] 02275- 1280 May, Arthritis M19.90 [facility] [address], [place] [address]- 1308 May, [facility] [address] [place] [address] 76073- 4896 May, Anxiety F41.9 ; Unspecified episodic mood disorder 296.90 ; Combinations of drug dependence excluding opioid type drug, unspecified abuse 304.80 and Other disorder of impulse control 312.39 [facility] [address], [place] [address]- 4907 May, Left knee pain M25.562 [place] [address] [place] [address] 92522- 7936 11 May, 2015 Left knee pain M25.562 ; Combinations of drug dependence excluding opioid type drug, unspecified abuse 304.80 ; Other disorder of impulse control 312.39 ; Fibromyalgia M79.7 ; Hypertension I10 ; Unspecified episodic mood disorder 296.90 and Left hip pain M25.552 [place] [address], [place] [address]- 3192 May, Unspecified episodic mood disorder 296.90 ; Other disorder of impulse control 312.39 ; Combinations of drug dependence excluding opioid type drug, unspecified abuse 304.80 and Anxiety F41.9 [place] [address] [place] [address] 36691- 6164 May, Left knee pain M25.562 ; Combinations of drug dependence excluding opioid type drug, unspecified abuse 304.80 ; Other disorder of impulse control 312.39 ; Fibromyalgia M79.7 ; Hypertension I10 ; Unspecified episodic mood disorder 296.90 and Left hip pain M25.552 [place] [address], [place] [address]- 7155 May, Anxiety F41.9 ; Unspecified episodic mood disorder 296.90 ; Other disorder of impulse control 312.39 and Combinations of drug dependence excluding opioid type drug, unspecified abuse 304.80 [place] [address] [place] [address] 07316- 9087 30 Apr, 2015 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 and 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, implants and grafts, initial encounter T84.82XA [facility] [address] [place] [address] 72106- 6789 28 Apr, 2015 Anxiety F41.9 ; Unspecified episodic mood disorder 296.90 ; Combinations of drug dependence excluding opioid type drug, unspecified abuse 304.80 and Other disorder of impulse control 312.39 [facility] [id number] [place] [address] 99925- 6343 Apr, Arthritis M19.90 [place] [id number] [place] [address] [phone] Apr, Anxiety F41.9 ; Unspecified episodic mood disorder 296.90 ; Combinations of drug dependence excluding opioid type drug, unspecified abuse 304.80 and Other disorder of impulse control 312.39 [facility] [id number] [place] [address] [phone] 17 Apr, 2015 Arthritis M19.90 [facility] [id number] [place] [address] [phone] 15 Apr, 2015 [facility] [id number] [place] [address] [phone] Apr, [facility] [id number] [place] [address] [phone] 14 Apr, 2015 Unspecified episodic mood disorder 296.90 ; Combinations of drug dependence excluding opioid type drug, unspecified abuse 304.80 ; Other disorder of impulse control 312.39 and Anxiety F41.9 [facility] [id number] [place] [address] 00398 -0104 11 Apr, 2015 Left knee pain M25.562 [facility] [id number] [place] [address] 66195- 5192 Apr, [facility] [address] [place] [address] 61293- 0264 Mar, Unspecified episodic mood disorder 296.90 ; Anxiety F41.9 ; Other disorder of impulse control 312.39 and Combinations of drug dependence excluding opioid type drug, unspecified abuse 304.80 [facility] [id number] [place] [id number] 25 Mar, 2015 Hyperpigmentation L81.9 [place] [id number] [place] [address] 225054- 695 Mar, Arthritis M19.90 and Anxiety F41.[address] [address]- 9030 22 Mar, 2015 Unspecified episodic mood disorder F39 ; Combined drug dependence excluding opioids, 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 ; Other disorder of impulse control F63.89 and Anxiety F41.9 [facility] [id number] [place] [address] 39290- 0140 12 Mar, 2015 Well woman exam Z01.419 ; Other fatigue R53.83 ; Hot flashes N95.1 ; Depression, unspecified depression type F32.9 and Body mass index (BMI) of 23.0-23.9 in adult Z68.23 [place] [id number] [place] [address]79 11 Mar, 2015 Unspecified episodic mood disorder 296.90 ; Other disorder of impulse control 312.39 and Anxiety F41.9 [place] [id number] [place] [address] 27108- 2719 11 Mar, 2015 Well woman exam Z01.419 [...] of breast Z12.39 and Limited mobility Z74.09 [facility] [address] [place] [address] 39680- 9267 10 Mar, 2015 [place] [address] [address] 54673- 2678 Mar, [facility] [facility] [address] [place] [address] 17959- 1993 Mar, [facility] [address] [address] 22255- 6860 Mar, Other specified complication of internal orthopedic prosthetic devices, implants and grafts, initial encounter T84.89XA ; Fibromyalgia M79.7 ; Hypertension I10 ; Anemia D64.9 ; Insomnia G47.00 ; Anxiety F41.9 ; Arthritis M19.90 and Migraine G43.909 [facility] [facility] [address] [place] [address] 95486- 5710 Mar, [facility] [address] [address] 49050- 0071 Feb, [facility] [facility] [address] [address] 94638- 9668 Feb, Arthritis M19.90 and Anxiety F41.9 [facility] [address] [address] 46950- 4043 Feb, [facility] [facility] [address] [address] 82445- 0128 Feb, [facility] [facility] [address] [address] 04986- 2889 Feb, [facility] [facility] [address] 06464- 2384 Feb, [facility] [facility] [address] 13034- 9919 Feb, Anxiety F41.9 [facility] [address] [address]- 7057 Feb, [facility] [id number] [place] [address] 53798 2546 Feb, [facility] [address] [address] 2203 07 Feb, 2015 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 and Fibromyalgia M79.7 [facility] [id number] [place] [address], [place] [address] 2546 Feb, [facility] [id number] [place] [address] 86758- 0120 Jan, [facility] [id number] [place] [address] 48015- 1621 Jan, [facility] [id number] [place] [address] 85896- 1111 Jan, [facility] [address] [address]- 4117 24 Jan, 2015 [facility] [id number] [place] [address] 07349- 6905 16 Jan, 2015 [facility] [address] [address] 2545 08 Jan, 2015 [facility] [address] [place] [address] 19640 2546 07 Jan, 2015 [facility] [address] [address] 2541 Jan, [facility] [address] [place] [address] 43437 254 Dec, [facility] [address] [address]- 2546 17 Dec, 2014 Left knee pain M25.562 [facility] [address] [place] [address] 53520- 7382 Dec, Left knee pain M25.562 [facility] [address] [place] [address] 60127- 9067 16 Dec, 2014 Fibromyalgia M79.7 ; Hypertension I10 and Arthritis M19.90 [facility] [id number] [place] [address] 86539- 9448 Dec, [facility] [id number] [place] [address] 78782- 2854 Dec, [facility] [id number] [place] [address] 71441- 7755 Dec, [facility] [id number] [place] [address] 19988- 2335 Dec, [facility] [id number] [place] [address] 72723- 1677 Nov, [facility] [id number] [place] [address] 76804- 1121 Nov, [facility] [id number] [place] [address] 23586- 2824 Nov, [facility] [id number] [place] [address] 85338- 4542 Nov, Hypertension I10 [facility] [address], [place] [address]- 3633 23 Oct, 2014 [facility] [id number] [place] [address] 75157- 1274 17 Sep, 2014 [facility] [address] [place] [address] 05054- 4613 04 Sep, 2014 [facility] [id number] [place] [address] 97411- 5873 04 Sep, 2014 [facility] [address], [place] [address]- 1278 03 Sep, 2014 [facility] [id number] [place] [address] 24243- 2721 Sep, [facility] [address] [id number] [place] [address]- 9869 Sep, [facility] [place] [facility] [address] [id number] 8229 Sep, Hip pain associated with recalled total hip arthroplasty hardware 996.77 [facility] [place] [facility] [address] [id number] [place] [address]- 8458 Sep, [facility] [place] [facility] [address] [id number] [place] [address]- 1646 Sep, [facility] [place] [facility] [address] [id number] [place] [address]- 6843 Sep, [facility] [place] [facility] [address] [facility] [id number], [place] [address]- 2948 Aug, [facility] [place] [facility] [id number] [address]- 0696 Jul, [facility] [place] [facility] [address] [id number], [place] [address]- 4511 June, [facility] [place] [facility] [address] [facility] [id number], [place] [address]- 6569 June, [facility] [place] [facility] [address] [facility] [id number], [place] [address]- 2079 June, [facility] [place] [facility] [address] [facility] [id number], [place] [address]- 2422 June, [facility] [place] [facility] [address] [id number] 1276 June, [facility] [place] [facility] [address] [facility] [id number] [place] 9906 June, [facility] [place] [facility] [address] [facility] [id number], [place] [address]- 3760 May, [facility] [place] [facility] [address] [id number][place] 3087 14 May, 2014 [facility] [place] [facility] [address] [id number] [place] [address]- 4254 13 May, 2014 [facility] [place] [facility] [address] [id number] [place] [address]- 9896 30 Apr, 2014 [facility] [place] [facility] [address] [id number] [place] [address]- 9565 30 Apr, 2014 [facility] [place] [facility] [address] [id number] [place] [address]- 6589 19 Apr, 2014 [facility] [place] [facility] [address] [id number] [place] [address]- 3600 19 Apr, 2014 [facility] [place] [facility] [address] [id number] [place] [address]- 0267 Apr, [facility] [place] [facility] [address] [id number] [place] [address]- 8543 Apr, [facility] [place] [facility] [address] [id number] [place] [address]- 4661 Apr, [facility] [place] [facility] [address] [id number] [place] [address]- 6044 Apr, [facility] [place] [facility] [address] [id number] [place] [address]- 2821 Apr, [facility] [place] [facility] [address] [id number] [place] [address]- 2602 Apr, [facility] [place] [facility] [address] [id number], [place] [address]- 5945 Apr, [facility] [place] [facility] [address] [id number] [place] [address]- 4923 Mar, [facility] [place] [facility] [address] [id number] [place] [address]- 2946 Mar, [facility] [place] [facility] [address] [id number] [place] [address]- 9256 16 Mar, 2014 [facility] [place] [facility] [address] [id number] [place] [address]- 5771 16 Mar, 2014 [facility] [place] [facility] [address] [id number] [place] [address]- 6591 10 Mar, 2014 [facility] [place] [facility] [address] [id number] [place] [address]- 3156 10 Mar, 2014 [facility] [place] [facility] [address] [id number] [place] [address]- 4606 15 Feb, 2014 [facility] [place] [facility] [address] [id number] [place] [address]- 2437 15 Feb, 2014 [facility] [place] [facility] [address] [id number] [place] [address]- 6135 Feb, [facility] [place] [facility] [address] [id number] [place] [address]- 0653 Feb, [facility] [place] [facility] [address] [id number] [place] [address]- 8711 Jan, [facility] [place] [facility] [address] [id number] [place] [address]- 5592 Jan, [facility] [place] [facility] [address] [id number] [place] [address]- 4840 Jan, [facility] [place] [facility] [address] [id number] [place] [address]- 8699 Jan, [facility] [place] [facility] [address] [id number] [place] [address]- 6473 Dec, [facility] [place] [facility] [address] [id number] [place] [address]- 3042 Dec, [facility] [place] [facility] [address] [id number] [place] [address]- 7980 Dec, [facility] [place] [facility] [address] [id number] [place] [address]- 0983 Dec, [facility] [place] [facility] [address] [id number] [place] [address]- 2237 Dec, [facility] [place] [facility] [address] [id number] [place] [address]- 5731 Dec, [facility] [place] [facility] [address] [id number] [place] [address]- 4218 Dec, [facility] [place] [facility] [address] [id number] [place] [address]- 8786 Dec, [facility] [place] [facility] [address] [id number] [place] [address]- 0319 Dec, [facility] [place] [facility] [address] [id number] [place] [address]- 4934 Dec, [facility] [place] [facility] [address] [id number] [place] [address]- 7604 Dec, [facility] [place] [facility] [address] [id number] [place] [address]- 2152 Nov, [facility] [place] [facility] [address] [id number] [place] [address]- 6895 28 Nov, 2013 [facility] [place] [facility] [address] [id number] [place] [address]- 6825 28 Nov, 2013 [facility] [place] [facility] [address] [id number], [place] [address]- 7826 Nov, [facility] [place] [facility] [address] [id number], [place] [address]- 0682 17 Nov, 2013 [facility] [place] [facility] [address] [id number], [place] [address]- 9111 15 Nov, 2013 [facility] [place] [facility] [address] [id number] [place] [address]- 2536 15 Nov, 2013 [facility] [place] [facility] [address] [id number], [place] [address]- 4718 15 Nov, 2013 [facility] [place] [facility] [address] [id number], [place] [address]- 2207 15 Nov, 2013 [facility] [place] [facility] [address] [id number] [place] [address]- 2953 14 Nov, 2013 [facility] [place] [facility] [address] [id number] [place] [address]- 9555 14 Nov, 2013 [facility] [place] [facility] [address] [id number] [place] [address]- 9215 14 Nov, 2013 [facility] [place] [facility] [address] [id number] [place] [address]- 4435 14 Nov, 2013 [facility] [place] [facility] [address] [id number] [place] [address]- 1259 13 Nov, 2013 [facility] [place] [facility] [address] [id number] [place] [address]- 0428 13 Nov, 2013 [facility] [place] [facility] [address] [id number] [place] [address]- 9200 11 Nov, 2013 [facility] [place] [facility] [address] [id number] [place] [address]- 6830 11 Nov, 2013 [facility] [place] [facility] [address] [id number] [place] [address]- 8036 07 Nov, 2013 [facility] [place] [facility] [address] [id number] [place] [address]- 5747 07 Nov, 2013 [facility] [place] [facility] [address] [id number] [place] [address]- 8812 07 Nov, 2013 [facility] [place] [facility] [address] [id number] [place] [address]- 6978 07 Nov, 2013 [facility] [place] [facility] [address] [id number], [place] [address]- 4383 30 Oct, 2013 [facility] [place] [facility] [address] [id number] [place] [address]- 0928 30 Oct, 2013 [facility] [place] [facility] [address] [id number] [place] [address]- 3312 26 Oct, 2013 [facility] [place] [facility] [address] [id number] [place] [address]- 1755 26 Oct, 2013 [facility] [place] [facility] [address] [id number] [place] [address]- 2660 Oct, 2013 [facility] [place] [facility] [address] [id number] [place] [address]- 5333 22 Oct, 2013 [facility] [place] [facility] [address] [id number] [place] [address]- 7737 18 Oct, 2013 [facility] [place] [facility] [address] [id number] [place] [address]- 1730 18 Oct, 2013 [facility] [place] [facility] [address] [id number] [place] [address]- 7882 18 Oct, 2013 [facility] [place] [facility] [address] [id number] [place] [address]- 8689 Oct, 2013 [facility] [place] [facility] [address] [id number] [place] [address]- 5321 Oct, [facility] [place] [facility] [address] [id number] [place] [address]- 4714 Oct, [facility] [place] [facility] [address] [id number] [place] [address]- 1486 Oct, [facility] [place] [facility] [address] [id number] [place] [address]- 7982 Oct, [facility] [place] [facility] [address] [id number] [place] [address]- 2856 Sep, [facility] [place] [facility] [address] [id number] [place] [address]- 4522 Sep, [facility] [place] [facility] [address] [id number] [place] [address]- 5612 Sep, [facility] [place] [facility] [address] [id number] [place] [address]- 2488 Sep, [facility] [place] [facility] [address] [id number] [place] [address]- 2563 Sep, [facility] [place] [facility] [address] [id number] [place] [address]- 5250 Sep, [facility] [place] [facility] [address] [id number] [place] [address]- 6338 Sep, [facility] [place] [facility] [address] [id number] [place] [address]- 0241 Sep, [facility] [place] [facility] [address] [id number] [place] [address]- 0651 Sep, [facility] [place] [facility] [address] [id number] [place] [address]- 4305 Sep, [facility] [place] [facility] [address] [id number] [place] [address]- 0531 Sep, [facility] [place] [facility] [address] [id number] [place] [address]- 7626 Sep, [facility] [place] [facility] [address] [id number] [place] [address]- 1075 Sep, [facility] [place] [facility] [address] [id number] [place] [address]- 2392 Sep, [facility] [place] [facility] [address] [id number] [place] [address]- 0198 Sep, [facility] [place] [facility] [address] [id number] [place] [address]- 6590 Sep, [facility] [place] [facility] [address] [id number] [place] [address]- 5155 Sep, [facility] [place] [facility] [address] [id number] [place] [address]- 5981 Sep, [facility] [place] [facility] [address] [id number] [place] [address]- 9173 Aug, [facility] [place] [facility] [address] [id number] [place] [address]- 3825 Aug, [facility] [place] [facility] [address] [id number] [place] [address]- 3029 Aug, [facility] [place] [facility] [address] [id number] [place] [address]- 6687 Aug, [facility] [address] [id number] [place] [address]- 3969 Aug, [facility] [place] [facility] [address] [id number] [place] [address]- 0851 Aug, [facility] [address] [id number] [place] [address]- 4819 Jul, [facility] [place] [facility] [address] [id number] [place] [address]- 2700 Jul, [facility] [place] [facility] [address] [id number] [place] [address]- 3208 Jul, [facility] [place] [facility] [address] [id number] [place] [address]- 5691 Jul, [facility] [place] [facility] [address] [id number] [place] [address]- 4458 June, [facility] [address] [id number] [place] [address]- 0556 June, [facility] [place] [facility] [address] [id number] [place] [address]- 0186 June, [facility] [address] [id number] [place] [address]- 5723 June, [facility] [place] [facility] [address] [id number] [place] [address]- 1894 June, [facility] [place] [facility] [address] [id number] [place] [address]- 7798 June, [facility] [place] [facility] [address] [id number] [place] 1465 June, [facility] [place] [facility] [address] [id number] [place] [address]- 4329 May, [facility] [place] [facility] [address] [id number] [place] [address]- 5108 May, [facility] [place] [facility] [address] [id number] [place] [address]- 4377 May, [facility] [place] [facility] [address] [id number] [place] [address]- 4443 May, [facility] [place] [facility] [address] [id number] [place] [address]- 9577 May, [facility] [place] [facility] [address] [id number] [place] [address]- 0130 May, [facility] [place] [facility] [address] [id number] [place] [address]- 9992 Apr, [facility] [place] [facility] [address] [id number] [place] [address]- 8795 31 Apr, 2013 [facility] [place] [facility] [address] [id number] [place] [address]- 2250 Apr, [facility] [place] [facility] [address] [id number] [place] [address]- 7880 Apr, [facility] [place] [facility] [address] [id number] [place] [address]- 3066 Apr, [facility] [place] [facility] [address] [id number] [place] [address]- 0803 14 Apr, 2013 [facility] [place] [facility] [address] [id number] [place] [address]- 0257 Apr, [facility] [place] [facility] [address] [id number] [place] [address] 12 Apr, 2013 [facility] [place] [facility] [address] [id number] [place] [address]42 10 Apr, 2013 [facility] [place] [facility] [address] [id number] [place] [address] 10 Apr, 2013 [facility] [place] [facility] [address] [id number] [place] [address] 04 Apr, 2013 [facility] [place] [facility] [address] [id number] [place] [address] Apr, [facility] [place] [facility] [address] [id number] [place] [address] Apr, [facility] [place] [facility] [address] [id number] [place] [address] Apr, [facility] [place] [facility] [address] [id number] [place] [address] Mar, [facility] [place] [facility] [address] [id number] [place] [address] Mar, [facility] [place] [facility] [address] [id number] [place] [address] Mar, [facility] [place] [facility] [address] [id number] [place] [address] Feb, [facility] [place] [facility] [address] [id number] [place] [address] Feb, [facility] [place] [facility] [address] [id number] [place] [address] 4784 Feb, [facility] [place] [facility] [address] [id number] [place] [address]88 Feb, [facility] [place] [facility] [address] [id number] [place] [address] Feb, [facility] [place] [facility] [address] [id number] [place] [address] Feb, [facility] [place] [facility] [address] [id number] [place] [address]365 Feb, [facility] [place] [facility] [address] [id number] [place] [address] Feb, [facility] [place] [facility] [address] [id number] [place] [address] Feb, [facility] [place] [facility] [address] [id number] [place] [address]- 94[address] Feb, [facility] [place] [facility] [address] [id number] [place] [address]- [address] 30 Jan, 2013 [facility] [address] [id number] [place] [address] Jan, [facility] [place] [facility] [address] [id number] [place] [address] 0916 Jan, [facility] [place] [facility] [address] [id number] [place] [address]186 Jan, [facility] [address] [id number] [place] [address] 46[address] Jan, [facility] [place] [facility] [address] [id number] [place] [address] Jan, [facility] [address] [id number] [place] [address] Jan, [facility] [address] [id number] [place] [address] Jan, [facility] [address] [id number] [place] [address] Jan, [facility] [address] [id number] [place] [address] 97[address] Jan, [facility] [address] [id number] [place] [address] 17 Jan, 2013 [facility] [place] [facility] [address] [id number] [place] [address]46 17 Jan, 2013 [facility] [place] [facility] [address] [id number] [place] [address] 1821 16 Jan, 2013 [facility] [place] [facility] [address] [id number] [place] [address]- 2686 11 Jan, 2013 [facility] [place] [facility] [address] [id number] [place] [address] 11 Jan, 2013 [facility] [place] [facility] [address] [id number] [place] [address] Jan, [facility] [place] [facility] [address] [id number] [place] [address] Jan, [facility] [place] [facility] [address] [id number] [place] [address] 0659 Jan, [facility] [place] [facility] [address] [facility] [id number] [place] [address] 7088 Jan, [facility] [place] [facility] [address] [id number], [place] [address] Jan, [facility] [place] [facility] [address] [id number] [place] [address] 38[address] Jan, [facility] [place] [facility] [address] [id number], [place] [address] Dec, [facility] [place] [facility] [address] [id number], [place] [address] Dec, [facility] [place] [facility] [address] [id number], [place] [address] Dec, [facility] [place] [facility] [address] [id number], [place] [address] Dec, [facility] [place] [facility] [address] [id number], [place] [address] Dec, [facility] [place] [facility] [address] [id number], [place] [address] Dec, [facility] [place] [facility] [address] [id number], [place] [address] Dec, [facility] [place] [facility] [address] [id number], [place] [address]- [address] Dec, [facility] [place] [facility] [address] [id number], [place] [address] Dec, [facility] [place] [facility] [address] [id number], [place] [address] Dec, [facility] [place] [facility] [address] [id number] [place] [address]- 7966 31 Nov, 2012 [facility] [address] [id number] [place] [address] 31 Nov, 2012 [facility] [place] [facility] [address] [id number] [place] [address] 18 Nov, 2012 [facility] [place] [facility] [address] [id number] [place] [address] 18 Nov, 2012 [facility] [place] [facility] [address] [id number] [place] [address]- 5033 11 Nov, 2012 [facility] [place] [facility] [address] [id number] [place] [address]- [address] Nov, 2012 [facility] [place] [facility] [address] [id number] [place] [address]- [address]180 11 Nov, 2012 [facility] [place] [facility] [address] [id number] [place] [address] 11 Nov, 2012 [facility] [place] [facility] [address] [id number] [place] [address] 5438 10 Nov, 2012 [facility] [place] [facility] [address] [id number] [place] [address] 4[address] 03 Nov, 2012 [facility] [place] [facility] [address] [id number] [place] [address] 3[address] 26 Oct, 2012 [facility] [place] [facility] [address] [id number] [place] [address] 2546 26 Oct, 2012 [facility] [place] [facility] [address] [id number] [place] [address]- 2541 26 Oct, 2012 [facility] [place] [facility] [address] [id number] [place] [address]- 4531 25 Oct, 2012 [facility] [place] [facility] [address] [id number] [place] [address]- 2548 06 Oct, 2012 [facility] [place] [facility] [address] [id number] [place] [address] 9350 Sep, [facility] [place] [facility] [address] [id number] [place] [address] 5244 Sep, [facility] [address] [id number] [place] [address] 6714 Aug, [facility] [place] [facility] [address] [id number] [place] [address] 5611 Aug, [facility] [place] [facility] [address] [id number] [place] [address]- 0843 Aug, [facility] [address] [id number] [place] [address] 6173 Aug, [facility] [address] [id number] [place] [address]- 1798 Aug, [facility] [address] [id number] [place] [address]- 9092 Aug, [facility] [address] [id number] [place] [address]- 8811 Aug, [facility] [address] [id number] [place] [address]- 6906 Jul, [facility] [place] [facility] [address] [id number] [place] [address]- 1496 Jul, [facility] [place] [facility] [address] [id number] [place] [address]- 3832 June, [facility] [place] [facility] [address] [id number] [place] [address]- 8950 June, [facility] [place] [facility] [address] [id number] [place] [address]- 8167 June, [facility] [place] [facility] [address] [id number] [place] [address]- 9844 June, [facility] [place] [facility] [address] [id number] [place] [address] 9919 June, [facility] [place] [facility] [address] [id number], [place] [address] 7[address] June, [facility] [address] [id number] [place] [address]- 6041 June, [facility] [address] [id number] [place] [address]- 3833 June, [facility] [address] [id number] [place] [address]- 7870 June, [facility] [address] [id number] [place] [address]- 3989 June, [facility] [address] [id number] [place] [address]- 8077 June, [facility] [address] [id number] [place] [address]- 3683 May, [facility] [address] [id number] [place] [address]- 0531 May, [facility] [address] [id number] [place] [address]- 6420 May, [facility] [address] [id number] [place] [address]- 5690 May, [facility] [address] [id number] [place] [address]- 7712 Apr, [facility] [address] [id number] [place] [address]- 9631 Apr, [facility] [address] [id number] [place] [address]- 5826 Apr, [facility] [address] [id number] [place] [address]- 8816 Mar, [facility] [place] [facility] [address] [id number] [place] [address]- 8580 Mar, [facility] [address] [id number] [place] [address]- 9685 Feb, [facility] [address] [id number] [place] [address]- 9009 28 Feb, 2012 [facility] [place] [facility] [address] [id number] [place] [address]- 2566 Feb, [facility] [place] [facility] [address] [id number] [place] [address] 2546 Feb, [facility] [place] [facility] [address] [id number] [place] [address]- 4166 16 Feb, 2012 [facility] [place] [facility] [address] [id number] [place] [address]- 8585 14 Feb, 2012 [facility] [place] [facility] [address] [id number] [place] [address]- 8472 08 Feb, 2012 [facility] [place] [facility] [address] [id number] [place] [address]- 6986 31 Jan, 2012 [facility] [place] [facility] [address] [id number] [place] [address]- 9876 31 Jan, 2012 [facility] [place] [facility] [address] [id number] [place] [address]- 3200 28 Jan, 2012 [facility] [place] [facility] [address] [id number] [place] [address]- 6304 17 Jan, 2012 [facility] [place] [facility] [address] [id number] [place] [address]- 3619 17 Jan, 2012 [facility] [place] [facility] [address] [id number] [place] [address]- 3606 11 Jan, 2012 [facility] [place] [facility] [address] [id number] [place] [address] 2546 11 Jan, 2012 [facility] [place] [facility] [address] [id number] [place] [address]- 7626 10 Jan, 2012 [facility] [place] [facility] [address] [id number] [place] [address]- 2546 10 Jan, 2012 [facility] [place] [facility] [address] [id number] [place] [address] 6986 Jan, [facility] [place] [facility] [address] [id number] [place] [address]- 2219 Jan, [facility] [place] [facility] [address] [id number] [place] [address]- 8302 Dec, [facility] [place] [facility] [address] [facility] [id number] [place] [address]- 3394 Dec, [facility] [place] [facility] [address] [id number] [place] [address]- 7883 Dec, [facility] [place] [facility] [address] [id number] [place] [address]- 1752 Dec, [facility] [place] [facility] [address] [id number] [place] [address]- 7318 Nov, [facility] [place] [facility] [address] [id number] [place] [address]- 7151 Nov, [facility] [place] [facility] [address] [id number], [place] [address] Nov, [facility] [place] [facility] [address] [id number] [place] [address]- 0619 27 Oct, 2011 [facility] [place] [facility] [address] [id number] [place] [address]- 1752 24 Oct, 2011 [facility] [place] [facility] [address] [id number], [place] [address]- 8495 21 Sep2011 [facility] [place] [facility] [address] [id number], [place] [address]- 2142 10 Sep2011 [facility] [place] [facility] [address] [id number] [place] [address]- 7279 07 Sep2011 [facility] [place] [facility] [address] [facility] [id number], [place] [address]- 3228 04 Sep2011 [facility] [place] [facility] [address] [facility] [id number], [place] [address]- 3624 04 Sep2011 [facility] [place] [facility] [address] [id number] [place] [address]- 2479 Sep, [facility] [place] [facility] [address] [id number] [place] [address]- 7669 Sep, [facility] [place] [facility] [address] [id number] [place] [address]- 4256 Sep, [facility] [place] [facility] [address] [id number] [place] [address]- 4796 Sep, [facility] [place] [facility] [address] [id number] [place] [address]- 4404 Sep, [facility] [place] [facility] [address] [id number] [place] [address]- 1889 Aug, [facility] [place] [facility] [address] [id number] [place] [address]- 0152 Aug, [facility] [place] [facility] [address] [id number] [place] [address]- 4440 Aug, [facility] [place] [facility] [address] [id number] [place] [address]- 8780 16 Aug, 2011 [facility] [place] [facility] [address] [id number] [place] [address]- 6815 Aug, [facility] [place] [facility] [address] [id number] [place] [address]- 2508 Aug, [facility] [place] [facility] [address] [id number] [place] [address]- 7534 Aug, [facility] [place] [facility] [address] [id number] [place] [address]- 7840 Jul, [facility] [place] [facility] [address] [id number] [place] [address]- 9751 Jul, [facility] [place] [facility] [address] [id number] [place] [address]- 0787 Jul, [facility] [place] [facility] [address] [id number] [place] [address]- 7534 Jul, [facility] [place] [facility] [address] [id number] [place] [address]- 6777 Jul, [facility] [address] [id number] [place] [address]- 7039 Jul, [facility] [place] [facility] [address] [id number] [place] [address]- 6305 Jul, [facility] [address] [id number] [place] [address]- 9601 Jul, [facility] [address] [id number] [place] [address]- 3514 Jul, [facility] [address] [id number] [place] [address]- 7302 June, [facility] [address] [id number] [place] [address]- 4237 June, [facility] [address] [id number] [place] [address]- 5444 June, [facility] [address] [id number] [place] [address]- 2067 June, [facility] [address] [id number] [place] [address]- 0954 June, [facility] [place] [facility] [address] [id number] [place] [address]- 2752 June, [facility] [place] [facility] [address] [id number] [place] [address]- 7671 June, [facility] [place] [facility] [address] [id number] [place] [address]- 0087 June, [facility] [place] [facility] [address] [id number] [place] [address]- 4295 May, [facility] [place] [facility] [address] [id number] [place] [address]- 2986 May, [facility] [place] [facility] [address] [id number] [place] [address]- 2546 May, [facility] [place] [facility] [address] [id number] [place] [address]- 7446 May, [facility] [place] [facility] [address] [id number] [place] [address]- 4946 16 May, 2011 [facility] [place] [facility] [address] [id number] [place] [address]- 5656 May, [facility] [place] [facility] [address] [id number] [place] [address]- 7415 May, [facility] [place] [facility] [address] [id number] [place] [address]- 7565 Apr, [facility] [place] [facility] [address] [id number] [place] [address]- 8829 Apr, [facility] [place] [facility] [address] [id number] [place] [address]- 1260 Apr, [facility] [place] [facility] [address] [id number] [place] [address]- 7382 Apr, [facility] [place] [facility] [address] [id number] [place] [address]- 4862 Apr, [facility] [place] [facility] [address] [id number] [place] [address]- 0547 Apr, [facility] [place] [facility] [address] [id number] [place] [address]- 5474 Apr, [facility] [place] [facility] [address] [id number] [place] [address]- 1886 Mar, [facility] [place] [facility] [address] [id number] [place] [address]- 4820 Mar, [facility] [place] [facility] [address] [id number] [place] 9[address] 14 Mar, 2011 [facility] [place] [facility] [address] [facility] [id number] [place] [address]- 9566 13 Mar, 2011 [facility] [place] [facility] [address] [id number] [place] [address]- 1900 Mar, [facility] [address] [id number] [place] [address]- 5586 Mar, [facility] [place] [facility] [address] [id number] [place] [address]- 0966 Mar, [facility] [address] [id number] [place] [address]- 0924 Feb, [facility] [place] [facility] [address] [id number] [place] [address]- 8873 Feb, [facility] [place] [facility] [address] [id number] [place] [address]- 1306 Feb, [facility] [address] [id number] [place] [address]- 6276 Feb, [facility] [address] [id number] [place] [address]- 8510 Feb, [facility] [address] [id number] [place] [address]- 4191 Feb, [facility] [address] [id number] [place] [address]- 5167 Feb, [facility] [place] [facility] [address] [id number] [place] [address]- 9100 Feb, [facility] [address] [id number] [place] [address]- 9093 Feb, [facility] [place] [facility] [address] [id number] [place] [address]- 3742 Feb, [facility] [place] [facility] [address] [id number] [place] [address]- 0230 Jan, [facility] [place] [facility] [address] [id number] [place] [address]- 2741 Jan, [facility] [place] [facility] [address] [id number], [place] [address]- 6611 Jan, [facility] [place] [facility] [address] [id number] [place] [address]- 6544 Jan, [facility] [place] [facility] [address] [id number] [place] 4463 Jan, [facility] [place] [facility] [address] [id number] [place] [address]- 5399 Jan, [facility] [place] [facility] [address] [id number] [place] [address]- 3525 Jan, [facility] [place] [facility] [address] [id number] [place] [address]- 3761 Jan, [facility] [place] [facility] [address] [id number] [place] [address]- 9529 Jan, [facility] [place] [facility] [address] [id number] [place] [address]- 6069 Jan, [facility] [place] [facility] [address] [id number] [place] [address]- 4513 Jan, [facility] [place] [facility] [address] [id number] [place] [address]- 9449 Dec, [facility] [place] [facility] [address] [id number] [place] [address]- 5464 17 Dec, 2010 [facility] [place] [facility] [address] [id number], [place] [address]- 7945 17 Dec, 2010 [facility] [place] [facility] [address] [id number], [place] [address]- 9993 16 Dec, 2010 [facility] [place] [facility] [address] [id number] [place] [address]- 3240 14 Dec, 2010 [facility] [place] [facility] [address] [id number] [place] [address]- 6053 09 Dec, 2010 [facility] [place] [facility] [address] [id number], [place] [address]- 7777 08 Dec, 2010 [facility] [place] [facility] [address] [id number] [place] [address]- 3140 Dec, [facility] [address] [id number] [place] [address]- 6762 Dec, [facility] [place] [facility] [address] [id number] [place] 7099 Nov, [facility] [address] [id number] [place] [address]- 3887 Nov, [facility] [place] [facility] [address] [id number] [place] [address]- 8524 Nov, [facility] [address] [id number] [place] [address]- 4450 Nov, [facility] [address] [id number] [place] [address]- 6706 24 Nov, 2010 [facility] [address] [id number] [place] [address]- 7010 Nov, [facility] [address] [id number] [place] [address]- 1624 Aug, [facility] [address] [id number] [place] [address]- 8822 14 Feb, 2010 [facility] [address] [id number] [place] [address]- 1686 14 Jan, 2010 [facility] [place] [facility] [address] [id number] [place] [address]- 6044 Jan, [facility] [place] [facility] [address] [id number] [place] [address]- 9041 Jan, [facility] [place] [facility] [address] [id number] [place] [address]- 5057 Jan, [facility] [place] [facility] [address] [id number] [place] [address]- 2238 Jan, [facility] [place] [facility] [address] [id number] [place] [address]- 7835 Dec, [facility] [address] [facility] [id number], [place] [address]- 9188 Dec, [facility] [address] [id number], [place] [address]- 4697 Dec, [facility] [address] [id number], [place] [address]- 0471 Dec, [facility] [id number], [place] [address]- 4742 Nov, [facility] [address] [id number], [place] [address]- 9896 Nov, [facility] [id number] [address] Nov, IMMUNIZATIONS No Known Immunizations SOCIAL HISTORY Never Assessed REASON FOR VISIT Klonopin PLAN OF CARE VITAL SIGNS MEDICATIONS Medication [...]
--- OUTSIDE RECORDS SUMMARY | 2018-01-13 22:07 | XMS REPORT ---
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 Active 269191710 Problem Hypertension I10 Active 22356745 Problem Arthritis M19.90 Active 8694928 Problem 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 Active 80720424 Problem Anxiety F41.9 Active 83671827 Problem Unspecified episodic mood disorder F39 Active 75295036 Problem Left hip pain M25.552 Active 09657932 ALLERGIES No Information ENCOUNTERS Encounter Location Date Diagnosis [facility] [address] [facility] [id number] [address] Nov, [facility] [id number] [address] Oct, [facility] [address] [facility] [id number] [address] Sep, [facility] [id number] [place] [address] 12321- 7426 Sep, Gastroesophageal reflux disease, esophagitis presence not specified K21.9 and Other chronic pain G89.29 [facility] [id number] [place] [address] 44985- 3003 Sep, [facility] [id number] [place] [address] 73480- 8031 Sep, [facility] [id number] [place] [address] 26776- 6206 Sep, Chronic hepatitis C without hepatic coma B18.2 [facility] [address] [address]- [address] Sep, 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 [place] [id number] [place] [address] 25548- 0147 Sep, Arthritis M19.90 [facility] [id number] [place] [address] 88005- 5751 Sep, [facility] [id number] [place] [address] 74865- 5904 Sep, Unspecified episodic mood disorder F39 [facility] [id number] [place] [address] 71695- 1807 Aug, [facility] [id number] [place] [address] [id number] Aug, [facility] [id number] [place] [address] 47859- 1595 Aug, Arthritis M19.90 [facility] [id number] [place] [address] 65398- 8265 Aug, [facility] [id number] [place] [address] 27465- 9995 Aug, Obesity (BMI 30.0-34.9) E66.9 ; Unspecified episodic mood disorder F39 and Hypertension I10 [facility] [address] [address] Aug, Unspecified episodic mood disorder F39 [facility] [address] [address] 7[address] Aug, [facility] [address] [address] Jul, Unspecified episodic mood disorder F39 [facility] [address] [address] Jul, [facility] [id number] [place] [address] 47734- 4138 Jul, Arthritis M19.90 [facility] [address] [address] 3[address] Jul, Left hip pain M25.552 ; Hypertension I10 ; Other obesity due to excess calories E66.09 and Body mass index (BMI) of 34.0-34.9 in adult Z68.34 [facility] [address] [address] 1308 Jul, Unspecified episodic mood disorder F39 [facility] [address] [address] 4[address] June, Gastroesophageal reflux disease, esophagitis presence not specified K21.9 [facility] [address] [address] 6164 June, [facility] [address] [address] June, [facility] [id number] [address] 7908 June, Arthritis M19.90 [facility] [address] [address] 2048 June, [facility] [id number] [address] 4238 June, [facility] [id number] [place] [address] 65181- 7174 June, Unspecified episodic mood disorder F39 [facility] [id number] [place] [address] 20581- 7890 May, Unspecified episodic mood disorder F39 [facility] [id number] [place] [address] 08582- 6582 May, [facility] [id number] [place] [address] 23424- 2499 May, Arthritis M19.90 [facility] [id number] [place] [address] 99546 -5227 May, Dysuria R30.0 ; Abscess L02.91 and Acute cystitis without hematuria N30.00 [facility] [id number] [place] [address] 65224- 4015 May, Other disorder of impulse control F63.89 ; Unspecified episodic mood disorder F39 ; Combined drug dependence excluding opioids, 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 ; Anxiety F41.9 and Other psychoactive substance dependence, 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 [facility] [id number] [place] [address] 65175- 3481 May, [facility] [id number] [place] [address] 94158- 6918 May, 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 ; Unspecified episodic mood disorder F39 ; Combined drug dependence excluding opioids, 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 ; Other psychoactive substance dependence, 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 and Anxiety F41.9 [facility] [id number] [place] [address] 23397- 9762 May, Other chronic pain G89.29 ; Left hip pain M25.552 ; Hypertension I10 ; 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, 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 and Unspecified episodic mood disorder F39 [facility] [id number] [place] [address] 43179- 1188 Apr, [facility] [id number] [place] [address] 82893 -7148 Apr, Neck pain M54.2 ; Left hip pain M25.552 and Fall, initial encounter W19.XXXA [facility] [id number] [place] [address] 09555- 7615 Apr, Unspecified episodic mood disorder F39 ; Combined drug dependence excluding opioids, 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 ; Anxiety F41.9 ; Other psychoactive substance dependence, 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 and Other disorder of impulse control F63.89 [facility] [id number] [place] [address] 46802- 3283 Apr, [facility] [id number] [place] [address] 52847- 6971 Apr, Arthritis M19.90 and Unspecified episodic mood disorder F39 [facility] [id number] [place] [address] 77004- 2115 Apr, Unspecified episodic mood disorder F39 [facility] [id number] [place] [address] 55713- 8716 Apr, [facility] [id number] [place] [address] 04382- 7018 Apr, [facility] [id number] [place] [address] 31053- 1666 Apr, Unspecified episodic mood disorder F39 ; Combined drug dependence excluding opioids, 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 ; Anxiety F41.9 ; Other psychoactive substance dependence, 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 and Other disorder of impulse control F63.89 [facility] [id number] [place] [address] 85043- 8855 Mar, Unspecified episodic mood disorder F39 [facility] [id number] [place] [address] 44245- 7745 Mar, Gastroesophageal reflux disease, esophagitis presence not specified K21.9 [place] [address] [address] 4[address] Mar, Arthritis M19.90 and Unspecified episodic mood disorder F39 [facility] [address] [address]- 9746 Feb, [facility] [address] [address]- 1096 Feb, [facility] [id number] [place] [address] 99986- 0911 Feb, [facility] [id number] [place] [address] 72864- 7030 Feb, Arthritis M19.90 [facility] [address] [address]- 3224 Feb, Non-pressure chronic ulcer of right calf, 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 ; Unspecified episodic mood disorder F39 and Left hip pain M25.552 [facility] [address] [address]- 8551 Feb, [facility] [address] [address]- 4831 Feb, [facility] [address] [address]- 2540 Jan, Arthritis M19.90 [facility] [address] [address]- 2548 Jan, Left hip pain M25.552 and Non-pressure chronic ulcer of right calf, 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 [facility] [address] [address]- 9294 Jan, Chronic hepatitis C without hepatic coma B18.2 [facility] [id number] [address]- 0905 Jan, Encounter for immunization Z23 ; Venous insufficiency ( chronic) (peripheral) I87.2 ; Non-pressure chronic ulcer of unspecified calf limited to breakdown of skin L97.201 and Gastroesophageal reflux disease, esophagitis presence not specified K21.9 [facility] [id number] [place] [address] 04670 2546 Jan, [facility] [id number] [place] [address] 21766 2546 Jan, Chronic hepatitis C without hepatic coma B18.2 and Encounter for immunization Z23 [facility] [id number] [place] [address] 53383 2546 Jan, Arthritis M19.90 [facility] [id number] [place] [address] 67481- 3666 Jan, [facility] [id number] [place] [address] 99357- 0008 Dec, [facility] [id number] [place] [address] 34865- 4286 Dec, Unspecified episodic mood disorder F39 [facility] [id number] [place] [address] 88621 2546 Dec, Arthritis M19.90 [facility] [id number] [place] [address] 23864 2546 Dec, Arthritis M19.90 [facility] [id number] [place] [address] 34308- 7536 Nov, [facility] [id number] [place] [address] 71007 2547 Nov, [facility] [id number] [place] [address] 96701- 2545 Nov, Other psychoactive substance dependence, 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 ; 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, 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 and Chronic hepatitis C without hepatic coma B18.2 [facility] [address] [address]- 4006 Nov, Arthritis M19.90 [facility] [address] [address] Oct, Partial thickness burn of abdomen, initial encounter T21.22XA [facility] [id number] [place] [address] 46906- 0665 Oct, [facility] [id number] [place] [address] 98851- 3110 Sep, Arthritis M19.90 [facility] [id number] [place] [address] 62911- 5346 Sep, [facility] [id number] [place] [address] 77736- 9397 Sep, [facility] [id number] [place] [address] 49781- 7272 Sep, Unspecified episodic mood disorder F39 ; Chronic hepatitis C without hepatic coma B18.2 and Left hip pain M25.552 [facility] [id number] [place] [address] 47534- 2554 Sep, Arthritis M19.90 and Left hip pain M25.552 [facility] [id number] [place] [address] 30104- 5393 Aug, [facility] [id number] [place] [address] 33702- 3482 Aug, [facility] [id number] [place] [address] 16620- 4666 Aug, Chronic hepatitis C without hepatic coma B18.2 [facility] [id number] [place] [address] 44224- 9812 Aug, [facility] [id number] [place] [address] 27457- 6656 Aug, Chronic hepatitis C without hepatic coma B18.2 [facility] [id number] [address]- 1634 Aug, 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, 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 [facility] [id number] [place] [address] 35873- 9707 Aug, [facility] [id number] [place] [address] 18225- 4900 Aug, Chronic hepatitis C without hepatic coma B18.2 and Hypertension I10 [facility] [id number] [place] [address] 00240- 7068 Jul, [facility] [id number] [place] [address] 93580- 0536 June, [facility] [address] 39196- 1126 Apr, Fibromyalgia M79.7 ; Left hip pain M25.552 and Decubitus ulcer of sacral region, stage 1 L89.151 [facility] [address] 62966- 7171 Apr, [facility] [id number] [place] [address] 37724- 6500 Apr, [facility] [id number] [place] [address] 38733- 0218 Feb, [facility] [id number] [place] [address] 36377- 8524 Dec, Anxiety F41.9 ; Combined drug dependence excluding opioids, 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 and Unspecified episodic mood disorder F39 [facility] [id number] [place] [address] 87427- 9964 Dec, [facility] [id number] [place] [address] 48429- 9804 Nov, [facility] [id number] [place] [address] 76492- 1050 Nov, [facility] [id number] [place] [address] 31881- 1622 Nov, Other disorder of impulse control F63.89 and Anxiety F41.9 [facility] [id number] [place] [address] 77279- 4896 Oct, [facility] [id number] [place] [address] 34502 -6891 14 Oct, 2015 Open wound of left thigh, initial encounter S71.102A [facility] [id number] [place] [address] 91434- 2511 Oct, [facility] [id number] [place] [address] 12868- 4061 Sep, Unspecified episodic mood disorder F39 ; Other disorder of impulse control 312.39 ; Combined drug dependence excluding opioids, 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 and Anxiety F41.9 [facility] [id number] [place] [address] 09770- 3238 Sep, Other disorder of impulse control 312.39 ; Combined drug dependence excluding opioids, 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 ; Anxiety F41.9 and Unspecified episodic mood disorder F39 [facility] [id number] [place] [address] 03664- 1065 Sep, Other chronic pain G89.29 [facility] [id number] [place] [address] 56657- 1285 Sep, [facility] [id number] [place] [address] 75193- 6182 Sep, [facility] [id number] [place] [address] 92891- 7322 Aug, [facility] [id number] [place] [address] 41355- 7057 Aug, [facility] [id number] [place] [address] 85801- 9171 Aug, [facility] [id number] [place] [address] 73141- 9676 Jul, [facility] [id number] [place] [address] 21413- 5039 Jul, [facility] [id number] [place] [address] 39139- 8600 Jul, [facility] [id number] [place] [address] 54744- 8249 Jul, Arthritis M19.90 ; Chronic hepatitis C without hepatic coma B18.2 and Left hip pain M25.552 [facility] [id number] [place] [address] 47915- 6014 Jul, Left knee pain M25.562 [facility] [id number] [place] [address] 319087- 1051 Jul, Combined drug dependence excluding opioids, 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 ; Anxiety F41.9 ; Other disorder of impulse control 312.39 and Unspecified episodic mood disorder F39 [facility] [id number] [place] [address] 93164- 4747 Jul, Left knee pain M25.562 [facility] [id number] [place] [address] 08810- 8998 Jul, Left knee pain M25.562 and Left hip pain M25.552 [facility] [id number] [place] [address] 88318- 7407 Jul, [facility] [id number] [place] [address] 74572- 4194 June, [facility] [id number] [place] [address] 24300- 9909 June, Combinations of drug dependence excluding opioid type drug, unspecified abuse 304.80 ; Other disorder of impulse control 312.39 ; Unspecified episodic mood disorder F39 and Anxiety F41.9 [facility] [id number] [place] [address] 67235- 7729 June, Other fatigue R53.83 ; Headache R51 and Left knee pain M25.562 [facility] [id number] [address]- 4257 June, Unspecified episodic mood disorder F39 ; Combinations of drug dependence excluding opioid type drug, unspecified abuse 304.80 ; Other disorder of impulse control 312.39 and Anxiety F41.9 [facility] [id number] [place] [address] 74587- 7718 June, Anxiety F41.9 [facility] [id number] [place] [address] 25970- 1634 June, Pain in left knee M25.562 [facility] [id number] [place] [address] 21779- 0225 June, Anxiety F41.9 and Combinations of drug dependence excluding opioid type drug, unspecified abuse 304.80 [facility] [id number] [place] [address] 69024- 2958 June, Unspecified episodic mood disorder 296.90 ; Combinations of drug dependence excluding opioid type drug, unspecified abuse 304.80 and Other disorder of impulse control 312.39 [facility] [id number] [place] [address] 68513- 6978 June, Anxiety F41.9 and Unspecified episodic mood disorder 296.90 [facility] [id number] [place] [address] 21256- 5798 May, Arthritis M19.90 [facility] [id number] [place] [address] 43412- 7735 May, Arthritis M19.90 [facility] [id number] [place] [address] 06122- 3317 May, Anxiety F41.9 ; Combinations of drug dependence excluding opioid type drug, unspecified abuse 304.80 and Other disorder of impulse control 312.39 [facility] [id number] [place] [address] 30352- 9575 May, Left knee pain M25.562 [facility] [id number] [place] [address] 06939- 5504 May, Arthritis M19.90 [facility] [address] [address]- 7600 May, [facility] [id number] [place] [address] 70534- 5892 May, Anxiety F41.9 ; Unspecified episodic mood disorder 296.90 ; Combinations of drug dependence excluding opioid type drug, unspecified abuse 304.80 and Other disorder of impulse control 312.39 [facility] [address] [address]- 9155 May, Left knee pain M25.562 [place] [id number] [place] [address] 58718- 7423 11 May, 2015 Left knee pain M25.562 ; Combinations of drug dependence excluding opioid type drug, unspecified abuse 304.80 ; Other disorder of impulse control 312.39 ; Fibromyalgia M79.7 ; Hypertension I10 ; Unspecified episodic mood disorder 296.90 and Left hip pain M25.552 [place] [address] [address]- 6794 May, Unspecified episodic mood disorder 296.90 ; Other disorder of impulse control 312.39 ; Combinations of drug dependence excluding opioid type drug, unspecified abuse 304.80 and Anxiety F41.9 [place] [id number] [place] [address] 64275- 7364 May, Left knee pain M25.562 ; Combinations of drug dependence excluding opioid type drug, unspecified abuse 304.80 ; Other disorder of impulse control 312.39 ; Fibromyalgia M79.7 ; Hypertension I10 ; Unspecified episodic mood disorder 296.90 and Left hip pain M25.552 [place] [address] [address]- 0334 May, Anxiety F41.9 ; Unspecified episodic mood disorder 296.90 ; Other disorder of impulse control 312.39 and Combinations of drug dependence excluding opioid type drug, unspecified abuse 304.80 [place] [id number] [place] [address] 70162- 0990 30 Apr, 2015 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 and 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, implants and grafts, initial encounter T84.82XA [facility] [id number] [place] [address] 60602- 6148 28 Apr, 2015 Anxiety F41.9 ; Unspecified episodic mood disorder 296.90 ; Combinations of drug dependence excluding opioid type drug, unspecified abuse 304.80 and Other disorder of impulse control 312.39 [facility] [id number] [place] [address] 23216- 8250 Apr, Arthritis M19.90 [place] [id number] [place] [address] 41141- 6122 Apr, Anxiety F41.9 ; Unspecified episodic mood disorder 296.90 ; Combinations of drug dependence excluding opioid type drug, unspecified abuse 304.80 and Other disorder of impulse control 312.39 [facility] [id number] [place] [address] 32272- 0570 17 Apr, 2015 Arthritis M19.90 [facility] [id number] [place] [address] 49240- 6574 15 Apr, 2015 [facility] [address] [id number] [place] [address] 90806- 1511 Apr, [facility] [id number] [place] [address] 50821- 1223 14 Apr, 2015 Unspecified episodic mood disorder 296.90 ; Combinations of drug dependence excluding opioid type drug, unspecified abuse 304.80 ; Other disorder of impulse control 312.39 and Anxiety F41.9 [facility] [id number] [place] [address] 91220 -4796 11 Apr, 2015 Left knee pain M25.562 [facility] [id number] [place] [address] 76053- 1233 Apr, [facility] [id number] [place] [address] 65045- 6694 Mar, Unspecified episodic mood disorder 296.90 ; Anxiety F41.9 ; Other disorder of impulse control 312.39 and Combinations of drug dependence excluding opioid type drug, unspecified abuse 304.80 [facility] [id number] [place] [address] [address]36 25 Mar, 2015 Hyperpigmentation L81.9 [place] [id number] [place] [address] 064664- 568 Mar, Arthritis M19.90 and Anxiety F41.[address] 7[address]80- 5791 22 Mar, 2015 Unspecified episodic mood disorder F39 ; Combined drug dependence excluding opioids, 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 ; Other disorder of impulse control F63.89 and Anxiety F41.9 [facility] [id number] [place] [address] 14201- 1168 12 Mar, 2015 Well woman exam Z01.419 ; Other fatigue R53.83 ; Hot flashes N95.1 ; Depression, unspecified depression type F32.9 and Body mass index (BMI) of 23.0-23.9 in adult Z68.23 [place] [id number] [place] [address] [address]291 11 Mar, 2015 Unspecified episodic mood disorder 296.90 ; Other disorder of impulse control 312.39 and Anxiety F41.9 [place] [id number] [place] [address] 20646- 4932 11 Mar, 2015 Well woman exam Z01.419 [...] of breast Z12.39 and Limited mobility Z74.09 [facility] [address] 92486- 4033 10 Mar, 2015 [facility] [facility] [address] 30720- 1165 Mar, [facility] [address] 72416- 7861 Mar, [facility] [address] 67153- 9655 Mar, Other specified complication of internal orthopedic prosthetic devices, implants and grafts, initial encounter T84.89XA ; Fibromyalgia M79.7 ; Hypertension I10 ; Anemia D64.9 ; Insomnia G47.00 ; Anxiety F41.9 ; Arthritis M19.90 and Migraine G43.909 [facility] [address] 21448- 6708 Mar, [facility] [address] 59987- 3448 Feb, [facility] [address] 59417- 2112 Feb, Arthritis M19.90 and Anxiety F41.9 [facility] [address] 47380- 2968 Feb, [facility] [address] 94658- 4833 Feb, [facility] [address] 66543- 8070 Feb, [facility] [address] 46339- 0979 Feb, [facility] [address] 49474- 2168 Feb, Anxiety F41.9 [facility] [address] [address]- 5529 Feb, [facility] [id number] [place] [address] 02201 2546 Feb, [facility] [address] [address]- 2561 07 Feb, 2015 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 and Fibromyalgia M79.7 [facility] [id number] [place] [address], [place] [address] 2546 Feb, [facility] [id number] [place] [address] 10654- 2744 Jan, [facility] [id number] [place] [address] 13719- 4158 Jan, [facility] [id number] [place] [address] 91725- 2063 Jan, [facility] [address] [address]- 7726 24 Jan, 2015 [facility] [id number] [place] [address] 74901- 1108 16 Jan, 2015 [facility] [address] [address] 2540 08 Jan, 2015 [facility] [id number] [place] [address] 17486 2546 07 Jan, 2015 [facility] [address] [address] 254 Jan, [facility] [id number] [place] [address] 66111 2548 Dec, [facility] [address] [address]- 2546 17 Dec, 2014 Left knee pain M25.562 [facility] [id number] [place] [address] 51353- 9103 Dec, Left knee pain M25.562 [facility] [id number] [place] [address] 30381- 4536 16 Dec, 2014 Fibromyalgia M79.7 ; Hypertension I10 and Arthritis M19.90 [facility] [id number] [place] [address] 81504- 4377 Dec, [facility] [id number] [place] [address] 86102- 2206 Dec, [facility] [id number] [place] [address] 23312- 7523 Dec, [facility] [id number] [place] [address] 93697- 5575 Dec, [facility] [id number] [place] [address] 99840- 3329 Nov, [facility] [id number] [place] [address] 77042- 2430 Nov, [facility] [id number] [place] [address] 38480- 9838 Nov, [facility] [id number] [place] [address] 37191- 7173 Nov, Hypertension I10 [facility] [address] [address]- 2853 23 Oct, 2014 [facility] [id number] [place] [address] 48980- 8311 17 Sep, 2014 [facility] [id number] [place] [address] 02816- 4090 04 Sep, 2014 [facility] [id number] [place] [address] 18898- 7897 04 Sep, 2014 [facility] [address] [address]- 0282 03 Sep, 2014 [facility] [id number] [place] [address] 56668- 0160 Sep, [facility] [address] [id number] [place] [address]- 2821 Sep, [facility] [place] [facility] [address] [id number] 2942 Sep, Hip pain associated with recalled total hip arthroplasty hardware 996.77 [facility] [place] [facility] [address] [id number] [place] [address]- 8958 Sep, [facility] [place] [facility] [address] [id number] [place] [address]- 1822 Sep, [facility] [place] [facility] [address] [id number] [place] [address]- 4482 Sep, [facility] [place] [facility] [address] [facility] [id number] [place] [address]- 6995 Aug, [facility] [place] [facility] [id number] [place] [address]- 5310 Jul, [facility] [place] [facility] [address] [id number] [place] [address]- 4502 June, [facility] [place] [facility] [address] [facility] [id number] [place] [address]- 7553 June, [facility] [place] [facility] [address] [facility] [id number] [place] [address]- 2931 June, [facility] [place] [facility] [address] [facility] [id number] [place] [address]- 5168 June, [facility] [place] [facility] [address] [id number] [place] 6746 June, [facility] [place] [facility] [address] [facility] [id number] [place] 0072 June, [facility] [place] [facility] [address] [facility] [id number] [place] [address]- 0190 May, [facility] [place] [facility] [address] [id number] [place] [address] 9368 14 May, 2014 [facility] [place] [facility] [address] [id number] [place] [address]- 7825 13 May, 2014 [facility] [place] [facility] [address] [id number] [place] [address]- 1766 30 Apr, 2014 [facility] [place] [facility] [address] [id number] [place] [address]- 1925 30 Apr, 2014 [facility] [place] [facility] [address] [id number] [place] [address]- 4331 19 Apr, 2014 [facility] [place] [facility] [address] [id number] [place] [address]- 8060 19 Apr, 2014 [facility] [place] [facility] [address] [id number] [place] [address]- 7054 Apr, [facility] [place] [facility] [address] [id number] [place] [address]- 1880 Apr, [facility] [place] [facility] [address] [id number] [place] [address]- 7240 Apr, [facility] [place] [facility] [address] [id number] [place] [address]- 9978 Apr, [facility] [place] [facility] [address] [id number] [place] [address]- 9138 Apr, [facility] [place] [facility] [address] [id number] [place] [address]- 7447 Apr, [facility] [place] [facility] [address] [id number] [place] [address]- 7417 Apr, [facility] [place] [facility] [address] [id number] [place] [address]- 3967 Mar, [facility] [place] [facility] [address] [id number] [place] [address]- 1536 Mar, [facility] [place] [facility] [address] [id number] [place] [address]- 8826 16 Mar, 2014 [facility] [place] [facility] [address] [id number] [place] [address]- 0238 16 Mar, 2014 [facility] [place] [facility] [address] [id number] [place] [address]- 1481 10 Mar, 2014 [facility] [place] [facility] [address] [id number] [place] [address]- 6676 10 Mar, 2014 [facility] [place] [facility] [address] [id number] [place] [address]- 7559 15 Feb, 2014 [facility] [place] [facility] [address] [id number] [place] [address]- 9504 15 Feb, 2014 [facility] [place] [facility] [address] [id number] [place] [address]- 8819 Feb, [facility] [place] [facility] [address] [id number] [place] [address]- 9376 Feb, [facility] [place] [facility] [address] [id number] [place] [address]- 2617 Jan, [facility] [place] [facility] [address] [id number] [place] [address]- 3313 Jan, [facility] [place] [facility] [address] [id number] [place] [address]- 2455 Jan, [facility] [place] [facility] [address] [id number] [place] [address]- 4223 Jan, [facility] [place] [facility] [address] [id number] [place] [address]- 1648 Dec, [facility] [place] [facility] [address] [id number] [place] [address]- 9853 Dec, [facility] [place] [facility] [address] [id number] [place] [address]- 3663 Dec, [facility] [place] [facility] [address] [id number] [place] [address]- 7825 Dec, [facility] [place] [facility] [address] [id number] [place] [address]- 4296 Dec, [facility] [place] [facility] [address] [id number] [place] [address]- 6744 Dec, [facility] [place] [facility] [address] [id number] [place] [address]- 9952 Dec, [facility] [place] [facility] [address] [id number] [place] [address]- 5558 Dec, [facility] [place] [facility] [address] [id number] [place] [address]- 6311 Dec, [facility] [place] [facility] [address] [id number] [place] [address]- 3612 Dec, [facility] [place] [facility] [address] [id number] [place] [address]- 2916 Dec, [facility] [place] [facility] [address] [id number] [place] [address]- 7832 Nov, [facility] [place] [facility] [address] [id number] [place] [address]- 0715 28 Nov, 2013 [facility] [place] [facility] [address] [id number] [place] [address]- 0540 28 Nov, 2013 [facility] [place] [facility] [address] [id number] [place] [address]- 1156 Nov, [facility] [place] [facility] [address] [id number] [place] [address]- 0440 17 Nov, 2013 [facility] [place] [facility] [address] [id number] [place] [address]- 7785 15 Nov, 2013 [facility] [place] [facility] [address] [id number] [place] [address]- 1930 15 Nov, 2013 [facility] [place] [facility] [address] [id number] [place] [address]- 9961 15 Nov, 2013 [facility] [place] [facility] [address] [id number] [place] [address]- 2077 15 Nov, 2013 [facility] [place] [facility] [address] [id number] [place] [address]- 2785 14 Nov, 2013 [facility] [place] [facility] [address] [id number] [place] [address]- 4770 14 Nov, 2013 [facility] [place] [facility] [address] [id number] [place] [address]- 8255 14 Nov, 2013 [facility] [place] [facility] [address] [id number] [place] [address]- 9313 14 Nov, 2013 [facility] [place] [facility] [address] [id number] [place] [address]- 8205 13 Nov, 2013 [facility] [place] [facility] [address] [id number] [place] [address]- 7083 13 Nov, 2013 [facility] [place] [facility] [address] [id number] [place] [address]- 8296 11 Nov, 2013 [facility] [place] [facility] [address] [id number] [place] [address]- 9222 11 Nov, 2013 [facility] [place] [facility] [address] [id number] [place] [address]- 8882 07 Nov, 2013 [facility] [place] [facility] [address] [id number] [place] [address]- 9717 07 Nov, 2013 [facility] [place] [facility] [address] [id number] [place] [address]- 5281 07 Nov, 2013 [facility] [place] [facility] [address] [id number] [place] [address]- 9038 07 Nov, 2013 [facility] [place] [facility] [address] [id number] [place] [address]- 4173 30 Oct, 2013 [facility] [place] [facility] [address] [id number] [place] [address]- 5357 30 Oct, 2013 [facility] [place] [facility] [address] [id number] [place] [address]- 3964 26 Oct, 2013 [facility] [place] [facility] [address] [id number] [place] [address]- 3659 26 Oct, 2013 [facility] [place] [facility] [address] [id number] [place] [address]- 1654 Oct, 2013 [facility] [place] [facility] [address] [id number] [place] [address]- 8067 22 Oct, 2013 [facility] [place] [facility] [address] [id number] [place] [address]- 6514 18 Oct, 2013 [facility] [place] [facility] [address] [id number] [place] [address]- 2629 18 Oct, 2013 [facility] [place] [facility] [address] [id number] [place] [address]- 3879 18 Oct, 2013 [facility] [place] [facility] [address] [id number] [place] [address]- 6970 Oct, 2013 [facility] [place] [facility] [address] [id number] [place] [address]- 2409 Oct, [facility] [place] [facility] [address] [id number] [place] [address]- 9495 Oct, [facility] [place] [facility] [address] [id number] [place] [address]- 5750 Oct, [facility] [place] [facility] [address] [id number] [place] [address]- 8400 Oct, [facility] [place] [facility] [address] [id number] [place] [address]- 4359 Sep, [facility] [place] [facility] [address] [id number] [place] [address]- 3835 Sep, [facility] [place] [facility] [address] [id number] [place] [address]- 7800 Sep, [facility] [place] [facility] [address] [id number] [place] [address]- 0682 Sep, [facility] [place] [facility] [address] [id number] [place] [address]- 1472 Sep, [facility] [place] [facility] [address] [id number] [place] [address]- 0083 Sep, [facility] [place] [facility] [address] [id number] [place] [address]- 4539 Sep, [facility] [place] [facility] [address] [id number] [place] [address]- 6351 Sep, [facility] [place] [facility] [address] [id number] [place] [address]- 8944 Sep, [facility] [place] [facility] [address] [id number] [place] [address]- 5788 Sep, [facility] [place] [facility] [address] [id number] [place] [address]- 0790 Sep, [facility] [place] [facility] [address] [id number] [place] [address]- 8234 Sep, [facility] [place] [facility] [address] [id number] [place] [address]- 2875 Sep, [facility] [place] [facility] [address] [id number] [place] [address]- 2104 Sep, [facility] [place] [facility] [address] [id number] [place] [address]- 3739 Sep, [facility] [place] [facility] [address] [id number] [place] [address]- 9680 Sep, [facility] [place] [facility] [address] [id number] [place] [address]- 3467 Sep, [facility] [place] [facility] [address] [id number] [place] [address]- 0495 Sep, [facility] [place] [facility] [address] [id number] [place] [address]- 4714 Aug, [facility] [place] [facility] [address] [id number] [place] [address]- 3214 Aug, [facility] [place] [facility] [address] [id number] [place] [address]- 3231 Aug, [facility] [place] [facility] [address] [id number] [place] [address]- 2177 Aug, [facility] [address] [id number] [place] [address]- 3648 Aug, [facility] [place] [facility] [address] [id number] [place] [address]- 7635 Aug, [facility] [address] [id number] [place] [address]- 5593 Jul, [facility] [place] [facility] [address] [id number] [place] [address]- 1493 Jul, [facility] [place] [facility] [address] [id number] [place] [address]- 6323 Jul, [facility] [place] [facility] [address] [id number] [place] [address]- 2965 Jul, [facility] [place] [facility] [address] [id number] [place] [address]- 4267 June, [facility] [address] [id number] [place] [address]- 1980 June, [facility] [place] [facility] [address] [id number] [place] [address]- 3067 June, [facility] [address] [id number] [place] [address]- 9433 June, [facility] [place] [facility] [address] [id number] [place] [address]- 4091 June, [facility] [place] [facility] [address] [id number] [place] [address]- 6195 June, [facility] [place] [facility] [address] [id number] [place] 1089 June, [facility] [place] [facility] [address] [id number] [place] [address] May, [facility] [place] [facility] [address] [id number] [place] [address] May, [facility] [place] [facility] [address] [id number] [place] [address] May, [facility] [place] [facility] [address] [id number] [place] [address] May, [facility] [place] [facility] [address] [id number] [place] [address] May, [facility] [place] [facility] [address] [id number] [place] [address] May, [facility] [place] [facility] [address] [id number] [place] [address] Apr, [facility] [place] [facility] [address] [id number] [place] [address] 31 Apr, 2013 [facility] [place] [facility] [address] [id number] [place] [address] Apr, [facility] [place] [facility] [address] [id number] [place] [address] Apr, [facility] [place] [facility] [address] [id number] [place] [address] Apr, [facility] [place] [facility] [address] [id number] [place] [address] 14 Apr, 2013 [facility] [place] [facility] [address] [id number] [place] [address] Apr, [facility] [place] [facility] [address] [id number] [place] [address] 12 Apr, 2013 [facility] [place] [facility] [address] [id number] [place] [address] 10 Apr, 2013 [facility] [place] [facility] [address] [id number] [place] [address] 10 Apr, 2013 [facility] [place] [facility] [address] [id number] [place] [address] 04 Apr, 2013 [facility] [place] [facility] [address] [id number] [place] [address] Apr, [facility] [place] [facility] [address] [id number] [place] [address] Apr, [facility] [place] [facility] [address] [id number] [place] [address] Apr, [facility] [place] [facility] [address] [id number] [place] [address] Mar, [facility] [place] [facility] [address] [id number] [place] [address] Mar, [facility] [place] [facility] [address] [id number] [place] [address] Mar, [facility] [place] [facility] [address] [id number] [place] [address] Feb, [facility] [place] [facility] [address] [id number] [place] [address] Feb, [facility] [place] [facility] [address] [id number] [place] [address] Feb, [facility] [place] [facility] [address] [id number] [place] [address] Feb, [facility] [place] [facility] [address] [id number] [place] [address] Feb, [facility] [place] [facility] [address] [id number] [place] [address] Feb, [facility] [place] [facility] [address] [id number] [place] [address] Feb, [facility] [place] [facility] [address] [id number] [place] [address] Feb, [facility] [place] [facility] [address] [id number] [place] [address] Feb, [facility] [place] [facility] [address] [id number] [place] [address] Feb, [facility] [place] [facility] [address] [id number] [place] [address] 30 Jan, 2013 [facility] [address] [id number] [place] [address] Jan, [facility] [place] [facility] [address] [id number] [place] [address] Jan, [facility] [place] [facility] [address] [id number] [place] [address] Jan, [facility] [address] [id number] [place] [address] Jan, [facility] [place] [facility] [address] [id number] [place] [address] Jan, [facility] [address] [id number] [place] [address] Jan, [facility] [address] [id number] [place] [address] Jan, [facility] [address] [id number] [place] [address] Jan, [facility] [address] [id number] [place] [address] Jan, [facility] [address] [id number] [place] [address] 17 Jan, 2013 [facility] [place] [facility] [address] [id number] [place] [address] 17 Jan, 2013 [facility] [place] [facility] [address] [id number] [place] [address]- [address]255 16 Jan, 2013 [facility] [place] [facility] [address] [id number] [place] [address]- 9475 11 Jan, 2013 [facility] [place] [facility] [address] [id number] [place] [address] 11 Jan, 2013 [facility] [place] [facility] [address] [id number] [place] [address] Jan, [facility] [place] [facility] [address] [id number] [place] [address] Jan, [facility] [place] [facility] [address] [id number] [place] [address]181 Jan, [facility] [place] [facility] [address] [facility] [id number] [place] [address]- [address] Jan, [facility] [place] [facility] [address] [id number] [place] [address] Jan, [facility] [place] [facility] [address] [id number] [place] [address] Jan, [facility] [place] [facility] [address] [id number] [place] [address] Dec, [facility] [place] [facility] [address] [id number] [place] [address] Dec, [facility] [place] [facility] [address] [id number] [place] [address]- 2009 Dec, [facility] [place] [facility] [address] [id number] [place] [address]- [address] Dec, [facility] [facility] [address] [id number] [place] [address] Dec, [facility] [address] [id number] [place] [address] Dec, [facility] [place] [address] [id number] [place] [address] 8480 Dec, [facility] [address] [id number] [place] [address] 3564 Dec, [facility] [place] [address] [id number] [place] [address] 2067 Dec, [facility] [address] [id number] [place] [address] 1240 Dec, [facility] [place] [facility] [address] [id number] [place] [address] 9086 31 Nov, 2012 [facility] [address] [id number] [place] [address]- 1718 31 Nov, 2012 [facility] [place] [facility] [address] [id number] [place] [address]- 5297 18 Nov, 2012 [facility] [place] [facility] [address] [id number] [place] [address]- 6345 18 Nov, 2012 [facility] [place] [facility] [address] [id number] [place] [address]- 1498 11 Nov, 2012 [facility] [place] [facility] [address] [id number] [place] [address]- 8972 Nov, 2012 [facility] [place] [facility] [address] [id number] [place] [address]- 6541 11 Nov, 2012 [facility] [place] [facility] [address] [id number] [place] [address]- 6952 11 Nov, 2012 [facility] [facility] [address] [id number] [place] [address]- 1891 10 Nov, 2012 [facility] [place] [facility] [address] [id number] [place] [address]- 8497 03 Nov, 2012 [facility] [place] [facility] [address] [id number] [place] [address]- 9853 26 Oct, 2012 [facility] [place] [facility] [address] [id number] [place] [address] 2546 26 Oct, 2012 [facility] [place] [facility] [address] [id number] [place] [address]- 2549 26 Oct, 2012 [facility] [place] [facility] [address] [id number] [place] [address]- 1749 25 Oct, 2012 [facility] [place] [address] [id number] [place] [address]- 2549 06 Oct, 2012 [facility] [place] [address] [id number] [place] [address]- 4670 Sep, [facility] [place] [facility] [address] [id number] [place] [address]- 5572 Sep, [facility] [address] [id number] [place] [address]- 8003 Aug, [facility] [address] [id number] [place] [address]- 0983 Aug, [facility] [place] [address] [id number] [place] [address]- 6836 Aug, [facility] [address] [id number] [place] [address]- 2103 Aug, [facility] [address] [id number] [place] [address]- 4797 Aug, [facility] [address] [id number] [place] [address]- 4879 Aug, [facility] [address] [id number] [place] [address]- 1175 Aug, [facility] [address] [id number] [place] [address]- 9086 Jul, [facility] [address] [id number] [place] [address]- 7572 Jul, [facility] [address] [id number] [place] [address]- 5333 June, [facility] [place] [facility] [address] [id number] [place] [address]- 3099 June, [facility] [place] [facility] [address] [id number] [place] [address]- 4610 June, [facility] [address] [id number] [place] [address]- 6146 June, [facility] [address] [id number] [place] [address]- 1588 June, [facility] [address] [id number] [place] [address] 7984 June, [facility] [address] [id number] [place] [address] 1949 June, [facility] [address] [id number] [place] [address]- 3903 June, [facility] [address] [id number] [place] [address]- 2531 June, [facility] [address] [id number] [place] [address]- 0140 June, [facility] [address] [id number] [place] [address]- 6538 June, [facility] [address] [id number] [place] [address]- 6220 May, [facility] [address] [id number] [place] [address]- 4030 May, [facility] [address] [id number] [place] [address]- 9932 May, [facility] [address] [id number] [place] [address]- 1009 May, [facility] [address] [id number] [place] [address]- 8296 Apr, [facility] [address] [id number] [place] [address]- 1977 Apr, [facility] [address] [id number] [place] [address]- 1963 Apr, [facility] [address] [id number] [place] [address]- 7337 Mar, [facility] [address] [id number] [place] [address]- 2781 Mar, [facility] [address] [id number] [place] [address]- 6085 Feb, [facility] [address] [id number] [place] [address]- 6977 28 Feb, 2012 [facility] [address] [id number] [place] [address]- 4186 Feb, [facility] [address] [id number] [place] [address] 2546 Feb, [facility] [address] [id number] [place] [address]- 0696 16 Feb, 2012 [facility] [address] [id number] [place] [address]- 2499 14 Feb, 2012 [facility] [address] [id number] [place] [address]- 7399 08 Feb, 2012 [facility] [address] [id number] [place] [address]- 9363 31 Jan, 2012 [facility] [address] [id number] [place] [address]- 5045 31 Jan, 2012 [facility] [address] [id number] [place] [address]- 0109 28 Jan, 2012 [facility] [address] [id number] [place] [address]- 0508 17 Jan, 2012 [facility] [address] [id number] [place] [address]- 1718 17 Jan, 2012 [facility] [address] [id number] [place] [address]- 8306 11 Jan, 2012 [facility] [address] [id number] [place] [address] 2546 11 Jan, 2012 [facility] [address] [id number] [place] [address]- 3386 10 Jan, 2012 [facility] [address] [id number] [place] [address]- 2546 10 Jan, 2012 [facility] [address] [id number] [place] [address]- 0192 Jan, [facility] [address] [id number] [place] [address]- 5952 Jan, [facility] [address] [id number] [place] [address]- 8012 Dec, [facility] [address] [facility] [id number] [place] [address]- 8635 Dec, [facility] [address] [id number] [place] [address]- 2366 Dec, [facility] [address] [id number] [place] [address]- 4702 Dec, [facility] [address] [id number] [place] [address]- 1854 Nov, [facility] [address] [id number] [place] [address]- 8145 Nov, [facility] [address] [id number] [place] [address]- 9573 Nov, [facility] [address] [id number] [place] [address]- 4369 27 Oct, 2011 [facility] [address] [id number] [place] [address]- 7236 24 Oct, 2011 [facility] [address] [id number] [place] [address]- 3605 21 Sep2011 [facility] [address] [id number] [place] [address]- 7224 10 Sep2011 [facility] [address] [id number] [place] [address]- 3361 07 Sep2011 [facility] [address] [facility] [id number] [place] [address]- 6786 04 Sep2011 [facility] [address] [facility] [id number] [place] [address]- 1672 04 Sep2011 [facility] [address] [id number] [place] [address]- 2480 Sep, [facility] [address] [id number] [place] [address]- 4430 Sep, [facility] [address] [id number] [place] [address]- 4766 Sep, [facility] [address] [id number] [place] [address]- 7046 Sep, [facility] [address] [id number] [place] [address]- 7492 Sep, [facility] [address] [id number] [place] [address]- 9440 Aug, [facility] [address] [id number] [place] [address]- 4430 Aug, [facility] [address] [id number] [place] [address]- 3709 Aug, [facility] [address] [id number] [place] [address]- 5226 16 Aug, 2011 [facility] [address] [id number] [place] [address]- 4010 Aug, [facility] [address] [id number] [place] [address]- 5522 Aug, [facility] [address] [id number] [place] [address]- 5100 Aug, [facility] [address] [id number] [place] [address]- 5850 Jul, [facility] [address] [id number] [place] [address]- 5379 Jul, [facility] [address] [id number] [place] [address]- 2302 Jul, [facility] [address] [id number] [place] [address]- 6690 Jul, [facility] [address] [id number] [place] [address]- 8155 Jul, [facility] [address] [id number] [place] [address]- 1105 Jul, [facility] [address] [id number] [place] [address]- 7932 Jul, [facility] [address] [id number] [place] [address]- 2909 Jul, [facility] [address] [id number] [place] [address]- 3724 Jul, [facility] [address] [id number] [place] [address]- 2673 June, [facility] [address] [id number] [place] [address]- 7295 June, [facility] [address] [id number] [place] [address]- 5086 June, [facility] [address] [id number] [place] [address]- 9719 June, [facility] [address] [id number] [place] [address]- 2510 June, [facility] [address] [id number] [place] [address]- 6793 June, [facility] [address] [id number] [place] [address]- 1952 June, [facility] [place] [facility] [address] [id number] [place] [address]- 0121 June, [facility] [facility] [address] [id number] [place] [address]- 3641 May, [facility] [address] [id number] [place] [address]- 4815 May, [facility] [address] [id number] [place] [address]- 2546 May, [facility] [place] [facility] [address] [id number] [place] [address]- 3896 May, [facility] [place] [facility] [address] [id number] [place] [address]- 3326 16 May, 2011 [facility] [facility] [address] [id number] [place] [address]- 7936 May, [facility] [place] [facility] [address] [id number] [place] [address]- 3744 May, [facility] [place] [facility] [address] [id number] [place] [address]- 9924 Apr, [facility] [place] [facility] [address] [id number] [place] [address]- 1306 Apr, [facility] [place] [facility] [address] [id number] [place] [address]- 7219 Apr, [facility] [place] [facility] [address] [id number] [place] [address]- 4103 Apr, [facility] [place] [facility] [address] [id number] [place] [address]- 5425 Apr, [facility] [place] [facility] [address] [id number] [place] [address]- 6326 Apr, [facility] [place] [facility] [address] [id number] [place] [address]- 1169 Apr, [facility] [place] [facility] [address] [id number] [place] [address]- 5199 Mar, [facility] [place] [facility] [address] [id number] [place] [address]- 9780 Mar, [facility] [place] [facility] [address] [id number] [place] [address]99 14 Mar, 2011 [facility] [place] [facility] [address] [facility] [id number] [place] [address]- 9189 13 Mar, 2011 [facility] [place] [facility] [address] [id number] [place] [address]- 8898 Mar, [facility] [address] [id number] [place] [address]- 7961 Mar, [facility] [place] [facility] [address] [id number] [place] [address]- 0946 Mar, [facility] [address] [id number] [place] [address]- 6740 Feb, [facility] [place] [facility] [address] [id number] [place] [address]- 1630 Feb, [facility] [place] [facility] [address] [id number] [place] [address]- 2395 Feb, [facility] [address] [id number] [place] [address]- 1288 Feb, [facility] [address] [id number] [place] [address]- 7238 Feb, [facility] [address] [id number] [place] [address]- 7620 Feb, [facility] [address] [id number] [place] [address]- 1868 Feb, [facility] [place] [facility] [address] [id number] [place] [address]- 9817 Feb, [facility] [address] [id number] [place] [address]- 1799 Feb, [facility] [place] [facility] [address] [id number] [place] [address]- 3881 Feb, [facility] [place] [facility] [address] [id number] [place] [address]- 8380 Jan, [facility] [place] [facility] [address] [id number] [place] [address]- 4961 Jan, [facility] [place] [facility] [address] [id number] [place] [address]- 1213 Jan, [facility] [place] [facility] [address] [id number] [place] [address]- 2616 Jan, [facility] [place] [facility] [address] [id number] [place] 4882 Jan, [facility] [place] [facility] [address] [id number] [place] [address]- 3464 Jan, [facility] [place] [facility] [address] [id number] [place] [address]- 9387 Jan, [facility] [place] [facility] [address] [id number] [place] [address]- 7254 Jan, [facility] [place] [facility] [address] [id number] [place] [address]- 2418 Jan, [facility] [place] [facility] [address] [id number] [place] [address]- 3407 Jan, [facility] [place] [facility] [address] [id number] [place] [address]- 0160 Jan, [facility] [place] [facility] [address] [id number] [place] [address]- 8014 Dec, [facility] [place] [facility] [address] [id number] [place] [address]- 9272 17 Dec, 2010 [facility] [place] [facility] [address] [id number] [place] [address]- 1717 17 Dec, 2010 [facility] [place] [facility] [address] [id number] [place] [address]- 6096 16 Dec, 2010 [facility] [place] [facility] [address] [id number] [place] [address]- 1274 14 Dec, 2010 [facility] [place] [facility] [address] [id number] [place] [address]- 8998 09 Dec, 2010 [facility] [place] [facility] [address] [id number] [place] [address]- 2717 08 Dec, 2010 [facility] [place] [facility] [address] [id number] [place] [address]- 2332 Dec, [facility] [address] [id number] [place] [address]- 4679 Dec, [facility] [place] [facility] [address] [id number] [place] [address]99 Nov, [facility] [address] [id number] [place] [address]- 8495 Nov, [facility] [place] [facility] [address] [id number] [place] [address]- 7940 Nov, [facility] [address] [id number] [place] [address]- 6292 Nov, [facility] [address] [id number] [place] [address]- 2878 24 Nov, 2010 [facility] [address] [id number] [place] [address]- 4971 Nov, [facility] [address] [id number] [place] [address]- 4216 Aug, [facility] [address] [id number] [place] [address]- 4050 14 Feb, 2010 [facility] [address] [id number] [place] [address]- 3136 14 Jan, 2010 [facility] [place] [facility] [address] [id number] [place] [address]- 1565 Jan, [facility] [place] [facility] [address] [id number] [place] [address]- 3346 Jan, [facility] [place] [facility] [address] [id number] [place] [address]- 7099 Jan, [facility] [place] [facility] [address] [id number] [place] [address] Jan, [facility] [place] [facility] [address] [id number] [place] [address] Dec, [facility] [id number] [address] Dec, [facility] [id number] [id number] Dec, [facility] [address] [id number] [address] Dec, [facility] [id number] [address] Nov, [facility] [id number] [address] Nov, [facility] [id number] [address] Nov, IMMUNIZATIONS No Known Immunizations SOCIAL HISTORY Never Assessed REASON FOR VISIT Medication question PLAN OF CARE VITAL SIGNS MEDICATIONS Unknown [...]
--- OUTSIDE RECORDS SUMMARY | 2018-01-13 22:08 | XMS REPORT ---
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 Active 934038065 Problem Hypertension I10 Active 95123175 Problem Arthritis M19.90 Active 8754226 Problem 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 Active 39542782 Problem Anxiety F41.9 Active 76641441 Problem Unspecified episodic mood disorder F39 Active 90618866 Problem Left hip pain M25.552 Active 81959542 ALLERGIES No Information ENCOUNTERS Encounter Location Date Diagnosis [facility] [id number] [address] Sep, Gastroesophageal reflux disease, esophagitis presence not specified K21.9 and Other chronic pain G89.29 [facility] [id number] [address] Sep, [facility] [id number] [place] [address] 05461- 1448 Sep, [facility] [id number] [place] [address] 25540- 7871 Sep, Chronic hepatitis C without hepatic coma B18.2 [facility] [address] [place] [address] 97220- 0191 Sep, 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 [facility] [id number] [place] [address] 56417- 9372 Sep, Arthritis M19.90 [facility] [id number] [place] [address] 52490- 6651 Sep, [facility] [id number] [place] [address] 20153- 4427 Sep, Unspecified episodic mood disorder F39 [facility] [id number] [place] [address] 16362- 2511 Aug, [facility] [id number] [place] [address] [id number] Aug, [facility] [id number] [place] [address] 35107- 9557 Aug, Arthritis M19.90 [facility] [id number] [place] [address] 94311- 2849 Aug, [facility] [id number] [place] [address] 80380- 7437 Aug, Obesity (BMI 30.0-34.9) E66.9 ; Unspecified episodic mood disorder F39 and Hypertension I10 [facility] [id number] [place] [address] 96706- 9003 Aug, Unspecified episodic mood disorder F39 [facility] [id number] [place] [address] 46730- 6324 Aug, [facility] [id number] [place] [address] 88937- 4380 Jul, Unspecified episodic mood disorder F39 [facility] [address] [address] Jul, [facility] [id number] [place] [address] 00336- 5813 Jul, Arthritis M19.90 [facility] [id number] [place] [address] 03170- 0497 Jul, Left hip pain M25.552 ; Hypertension I10 ; Other obesity due to excess calories E66.09 and Body mass index (BMI) of 34.0-34.9 in adult Z68.34 [facility] [id number] [place] [address] 10304- 4971 Jul, Unspecified episodic mood disorder F39 [facility] [id number] [place] [address] 10310- 1893 June, Gastroesophageal reflux disease, esophagitis presence not specified K21.9 [facility] [address] [address] June, [facility] [id number] [place] [address] 39479- 4253 June, [facility] [id number] [place] [address] 91325- 9213 June, Arthritis M19.90 [facility] [address] [address] 79[address] June, [facility] [address] [address] 9558 June, [facility] [id number] [place] [address] 97687- 1699 June, Unspecified episodic mood disorder F39 [facility] [address], [place] [address] 8913 May, Unspecified episodic mood disorder F39 [facility] [id number] [place] [address] 45071- 8100 May, [address] 25879- 8787 May, Arthritis M19.90 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 [facility] [id number] [place] [address] 40646- 4844 May, [facility] [id number] [place] [address] 58332- 5400 May, 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 and Other disorder of impulse control F63.89 [facility] [id number] [place] [address] 05283- 7408 Apr, [facility] [id number] [place] [address] 70322- 1688 Apr, Arthritis M19.90 and Unspecified episodic mood disorder F39 [facility] [id number] [place] [address] 45998- 4469 Apr, Unspecified episodic mood disorder F39 [facility] [id number] [place] [address] 03277- 4512 Apr, [facility] [id number] [place] [address] 22154- 0639 Apr, [facility] [id number] [place] [address] 69531- 3904 Apr, Unspecified episodic mood disorder F39 ; Combined drug dependence excluding opioids, 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 ; Anxiety F41.9 ; Other psychoactive substance dependence, 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 and Other disorder of impulse control F63.89 [facility] [id number] [place] [address] 97746- 5239 Mar, Unspecified episodic mood disorder F39 [facility] [id number] [place] [address] 32557- 4887 Mar, Gastroesophageal reflux disease, esophagitis presence not specified K21.9 [facility] [id number] [place] [address] 69708- 7827 Mar, Arthritis M19.90 and Unspecified episodic mood disorder F39 [facility] [id number] [place] [address] 41644- 1263 Feb, [facility] [id number] [place] [address] 27333- 4330 Feb, [facility] [id number] [place] [address] 10911- 5981 Feb, [facility] [id number] [place] [address] 29561- 5874 Feb, Arthritis M19.90 [facility] [id number] [place] [address] 31920- 1078 Feb, Non-pressure chronic ulcer of right calf, 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 ; Unspecified episodic mood disorder F39 and Left hip pain M25.552 [place] [id number] [place] [address] 37462- 0195 Feb, [place] [id number] [place] [address] 13857- 1485 Feb, [place] [id number] [place] [address] 27394- 9653 Jan, Arthritis M19.90 [facility] [id number] [place] [address] 52001- 2878 Jan, Left hip pain M25.552 and Non-pressure chronic ulcer of right calf, 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 [place] [id number] [place] [address] 38284- 9087 Jan, Chronic hepatitis C without hepatic coma B18.2 [facility] [id number] [place] [address] 65661- 2898 Jan, Encounter for immunization Z23 ; Venous insufficiency ( chronic) (peripheral) I87.2 ; Non-pressure chronic ulcer of unspecified calf limited to breakdown of skin L97.201 and Gastroesophageal reflux disease, esophagitis presence not specified K21.9 [place] [id number] [place] [address] 23187- 0981 Jan, [place] [id number] [place] [address] 00138- 2389 Jan, Chronic hepatitis C without hepatic coma B18.2 and Encounter for immunization Z23 [facility] [id number] [place] [address] 54227- 9809 Jan, Arthritis M19.90 [facility] [id number] [place] [address] 08954- 5826 Jan, [facility] [id number] [place] [address] 88309- 2078 Dec, [facility] [id number] [place] [address] 64059- 5092 Dec, Unspecified episodic mood disorder F39 [facility] [address] 48747- 3561 Dec, Arthritis M19.90 [facility] [id number] [place] [address] 87472- 5090 Dec, Arthritis M19.90 [facility] [id number] [place] [address] 26126- 7927 Nov, [facility] [id number] [place] [address] 07149- 5735 Nov, [facility] [id number] [place] [address] 87444- 5541 Nov, Other psychoactive substance dependence, 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 [id number] [place] [address] 70249 -4184 Oct, Partial thickness burn of abdomen, initial encounter T21.22XA [facility] [id number] [place] [address] 68715- 0224 14 Oct, 2016 [facility] [address] 02067- 6126 Sep, Arthritis M19.90 [facility] [id number], [place] [address]- 8736 Sep, [facility] [id number] [place] [address] 53476- 1356 Sep, [facility] [id number] [place] [address] 16072- 1627 Sep, Unspecified episodic mood disorder F39 ; Chronic hepatitis C without hepatic coma B18.2 and Left hip pain M25.552 [facility] [id number], [place] [address]- 6906 Sep, Arthritis M19.90 and Left hip pain M25.552 [facility] [address] [place] [address] 19451- 8822 Aug, [facility] [id number] [place] [address] 63190- 9141 Aug, [facility] [id number] [place] [address] 79669- 5683 Aug, Chronic hepatitis C without hepatic coma B18.2 [facility] [address] [address]- 1671 Aug, [facility] [id number] [address]- 1078 Aug, Chronic hepatitis C without hepatic coma B18.2 [facility] [id number], [place] [address]- 8594 Aug, 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, 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 [facility] [id number] [place] [address] 33217- 8688 Aug, [facility] [id number] [address]- 5948 Aug, Chronic hepatitis C without hepatic coma B18.2 and Hypertension I10 [facility] [address], [place] [address]- 1318 Jul, [facility] [address] [place] [address] 47101- 5097 June, [facility] [id number] [place] [address] 96170- 4167 Apr, Fibromyalgia M79.7 ; Left hip pain M25.552 and Decubitus ulcer of sacral region, stage 1 L89.151 [facility] [id number] [place] [address] 33727- 2988 Apr, [facility] [id number] [place] [address] 49088- 1142 Apr, [facility] [id number] [place] [address] 96604- 1637 Feb, [facility] [id number] [place] [address] 79984- 9625 Dec, Anxiety F41.9 ; Combined drug dependence excluding opioids, 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 and Unspecified episodic mood disorder F39 [facility] [id number] [place] [address] 21723- 6426 Dec, [facility] [id number] [place] [address] 00290- 4766 18 Nov, 2015 [facility] [address] [place] [address] 15762- 5059 Nov, [facility] [id number] [place] [address] 94720- 7534 10 Nov, 2015 Other disorder of impulse control F63.89 and Anxiety F41.9 [facility] [address] [place] [address] 42957- 7012 21 Oct, 2015 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 and Anxiety F41.9 [facility] [id number] [place] [address] 31502- 2652 Sep, Other disorder of impulse control 312.39 ; Combined drug dependence excluding opioids, 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 ; Anxiety F41.9 and Unspecified episodic mood disorder F39 [facility] [id number] [place] [address] 49743- 7887 Sep, Other chronic pain G89.29 [facility] [id number] [place] [address] 44767- 3406 Sep, [facility] [id number] [place] [address] 20465- 5287 Sep, [facility] [id number] [place] [address] 26092- 6226 Aug, [facility] [id number] [place] [address] 98135- 1860 Aug, [facility] [address], [place] [address]- 1319 Aug, [facility] [id number] [place] [address] 98985- 2598 Jul, [facility] [id number] [place] [address] 45705 2546 Jul, [facility] [id number] [place] [address] 11037 2546 Jul, [facility] [address] [place] [address] 65585- 3328 Jul, Arthritis M19.90 ; Chronic hepatitis C without hepatic coma B18.2 and Left hip pain M25.552 [facility] [address] [place] [address] 91521- 5380 Jul, Left knee pain M25.562 [facility] [id number] [place] [address] 147047- 2991 Jul, Combined drug dependence excluding opioids, 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 ; Anxiety F41.9 ; Other disorder of impulse control 312.39 and Unspecified episodic mood disorder F39 [facility] [id number] [place] [address] 98481- 7690 Jul, Left knee pain M25.562 [facility] [id number] [place] [address] 07932- 2962 Jul, Left knee pain M25.562 and Left hip pain M25.552 [facility] [id number] [place] [address] 26604- 5425 Jul, [facility] [id number] [place] [address] 47578- 0548 June, [facility] [id number] [place] [address] 58481- 3124 June, Combinations of drug dependence excluding opioid type drug, unspecified abuse 304.80 ; Other disorder of impulse control 312.39 ; Unspecified episodic mood disorder F39 and Anxiety F41.9 [facility] [id number] [place] [address] 97289- 1485 June, Other fatigue R53.83 ; Headache R51 and Left knee pain M25.562 [facility] [address] [place] [address] 58402- 8833 June, Unspecified episodic mood disorder F39 ; Combinations of drug dependence excluding opioid type drug, unspecified abuse 304.80 ; Other disorder of impulse control 312.39 and Anxiety F41.9 [facility] [address] [place] [address] 63983- 4906 June, Anxiety F41.9 [facility] [address] [address]- 5840 17 Jun, 2015 Pain in left knee M25.562 [facility] [id number] [place] [address] 78887- 2003 June, Anxiety F41.9 and Combinations of drug dependence excluding opioid type drug, unspecified abuse 304.80 [facility] [id number] [place] [address] 64785- 4044 June, Unspecified episodic mood disorder 296.90 ; Combinations of drug dependence excluding opioid type drug, unspecified abuse 304.80 and Other disorder of impulse control 312.39 [facility] [id number] [place] [address] 19068- 4811 June, Anxiety F41.9 and Unspecified episodic mood disorder 296.90 [facility] [id number] [place] [address] 13906- 9489 May, Arthritis M19.90 [facility] [id number] [place] [address] 97117- 7230 May, Arthritis M19.90 [facility] [id number] [place] [address] 88058- 7162 May, Anxiety F41.9 ; Combinations of drug dependence excluding opioid type drug, unspecified abuse 304.80 and Other disorder of impulse control 312.39 [facility] [id number] [place] [address] 63021- 1724 18 May, 2015 Left knee pain M25.562 [facility] [address] [place] [address] 79186- 3618 14 May, 2015 Arthritis M19.90 [facility] [id number] [place] [address] 65247- 2220 May, [facility] [address] [place] [address] 89437- 0852 May, Anxiety F41.9 ; Unspecified episodic mood disorder 296.90 ; Combinations of drug dependence excluding opioid type drug, unspecified abuse 304.80 and Other disorder of impulse control 312.39 [place] [id number] [place] [address] 93062- 2029 May, Left knee pain M25.562 [facility] [id number] [place] [address] 70311- 3110 May, Left knee pain M25.562 ; Combinations of drug dependence excluding opioid type drug, unspecified abuse 304.80 ; Other disorder of impulse control 312.39 ; Fibromyalgia M79.7 ; Hypertension I10 ; Unspecified episodic mood disorder 296.90 and Left hip pain M25.552 [address] [place] [id number] [place] [address] 255815- 7417 May, Unspecified episodic mood disorder 296.90 ; Other disorder of impulse control 312.39 ; Combinations of drug dependence excluding opioid type drug, unspecified abuse 304.80 and Anxiety F41.9 [place] [id number] [place] [address] 55417- 9504 May, Left knee pain M25.562 ; Combinations of drug dependence excluding opioid type drug, unspecified abuse 304.80 ; Other disorder of impulse control 312.39 ; Fibromyalgia M79.7 ; Hypertension I10 ; Unspecified episodic mood disorder 296.90 and Left hip pain M25.552 [place] [address] [place] [address] 17509- 4401 May, Anxiety F41.9 ; Unspecified episodic mood disorder 296.90 ; Other disorder of impulse control 312.39 and Combinations of drug dependence excluding opioid type drug, unspecified abuse 304.80 [place] [address] [place] [address] 55914- 7089 Apr, 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 and 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, implants and grafts, initial encounter T84.82XA [place] [address] [place] [address] 08621- 0083 Apr, Anxiety F41.9 ; Unspecified episodic mood disorder 296.90 ; Combinations of drug dependence excluding opioid type drug, unspecified abuse 304.80 and Other disorder of impulse control 312.39 [facility] [address] [address]- 0732 Apr, Arthritis M19.90 [facility] [address] [place] [address] 59485- 8723 Apr, Anxiety F41.9 ; Unspecified episodic mood disorder 296.90 ; Combinations of drug dependence excluding opioid type drug, unspecified abuse 304.80 and Other disorder of impulse control 312.39 [facility] [address] [place] [address] 70237- 8791 17 Apr, 2015 Arthritis M19.90 [facility] [id number] [place] [address] 29998- 9425 15 Apr, 2015 [facility] [id number] [place] [address] 58811- 6333 Apr, [facility] [id number] [place] [address] 83531- 2331 Apr, Unspecified episodic mood disorder 296.90 ; Combinations of drug dependence excluding opioid type drug, unspecified abuse 304.80 ; Other disorder of impulse control 312.39 and Anxiety F41.9 [facility] [id number] [place] [address] 03145 -2151 Apr, Left knee pain M25.562 [facility] [id number] [place] [address] 79727- 4726 Apr, [facility] [id number] [place] [address] 74325- 1635 Mar, Unspecified episodic mood disorder 296.90 ; Anxiety F41.9 ; Other disorder of impulse control 312.39 and Combinations of drug dependence excluding opioid type drug, unspecified abuse 304.80 [facility] [id number] [place] [address] 93858- 1574 Mar, Hyperpigmentation L81.9 [facility] [id number] [place] [address] 45206- 2680 22 Mar, 2015 Arthritis M19.90 and Anxiety F41.9 [address] [place] [id number] [place] [address] 69126- 1679 22 Mar, 2015 Unspecified episodic mood disorder F39 ; Combined drug dependence excluding opioids, 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 ; Other disorder of impulse control F63.89 and Anxiety F41.9 [address] [id number] [place] [address] 99986- 6046 12 Mar, 2015 Well woman exam Z01.419 ; Other fatigue R53.83 ; Hot flashes N95.1 ; Depression, unspecified depression type F32.9 and Body mass index (BMI) of 23.0-23.9 in adult Z68.[address] 20634- 9451 11 Mar, 2015 Unspecified episodic mood disorder 296.90 ; Other disorder of impulse control 312.39 and Anxiety F41.9 [id number] [place] [address] 41351- 9789 11 Mar, 2015 Well woman exam Z01.419 [...] of breast Z12.39 and Limited mobility Z74.09 [address] [id number] [place] [address] 61682- 0162 10 Mar, 2015 [address] [address] 92745- 3567 Mar, [facility] [id number] [place] [address] 20880- 6574 Mar, [facility] [id number] [place] [address] 93358- 0180 Mar, Other specified complication of internal orthopedic prosthetic devices, implants and grafts, initial encounter T84.89XA ; Fibromyalgia M79.7 ; Hypertension I10 ; Anemia D64.9 ; Insomnia G47.00 ; Anxiety F41.9 ; Arthritis M19.90 and Migraine G43.909 [facility] [address] 49660- 3698 Mar, [facility] [address] 56878- 8170 Feb, [facility] [id number] [place] [address] 32389- 4673 Feb, Arthritis M19.90 and Anxiety F41.9 [facility] [id number] [place] [address] 05296- 7181 Feb, [facility] [address] 68115- 4305 Feb, [facility] [id number] [place] [address] 75479- 6647 Feb, [facility] [id number] [place] [address] 06113- 4708 Feb, [facility] [id number] [place] [address] 00175- 5089 Feb, Anxiety F41.9 [facility] [address] 29621- 2189 Feb, [facility] [id number] [place] [address] 78782- 2973 Feb, [facility] [id number] [place] [address] 52312- 7423 Feb, 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 and Fibromyalgia M79.7 [facility] [id number] [place] [address] 64894- 2090 Feb, [facility] [address] [address]- 8569 Jan, [facility] [id number] [place] [address] 54010- 7268 Jan, [facility] [id number] [place] [address] 82807- 4212 Jan, [facility] [id number] [place] [address] 95176- 8690 Jan, [facility] [id number] [place] [address] 17593- 6621 Jan, [facility] [id number] [place] [address] 33953- 9647 Jan, [facility] [id number] [place] [address] 33796- 6260 Jan, [facility] [id number] [place] [address] 75879- 3166 Jan, [facility] [id number] [place] [address] 98846- 2954 Dec, [facility] [id number] [place] [address] 48294- 1397 Dec, Left knee pain M25.562 [facility] [id number] [place] [address] 69948- 6960 Dec, Left knee pain M25.562 [facility] [id number] [place] [address] 93682- 0639 Dec, Fibromyalgia M79.7 ; Hypertension I10 and Arthritis M19.90 [facility] [id number] [place] [address] 29625- 8208 Dec, [facility] [address] [id number] [address]- 8900 Dec, [facility] [place] [facility] [address] [facility] [id number], [place] [address]- 1122 Dec, [facility] [place] [facility] [address] [facility] [id number] [address]- 8789 Dec, [facility] [place] [facility] [address] [facility] [id number] [place] [address] 14231- 9636 Nov, [facility] [place] [facility] [address] [id number] [address]- 2259 Nov, [facility] [place] [facility] [id number] [place] [address], [place] [address]- 4243 Nov, [facility] [place] [facility] [id number] [place] [address] 57712- 1528 Nov, Hypertension I10 [facility] [place] [facility] [address] [facility] [id number] [address]- 2048 23 Oct, 2014 [facility] [place] [facility] [address] [facility] [id number], [place] [address]- 1239 17 Oct, 2014 [facility] [place] [facility] [address] [id number] [address]- 1181 04 Oct, 2014 [facility] [place] [facility] [address] [facility] [id number] [address]- 1081 Oct, [facility] [place] [facility] [address] [facility] [id number], [place] [address]- 2162 Oct, [facility] [place] [facility] [address] [facility] [id number][place] [address]- 0727 Sep, [facility] [place] [facility] [address] [facility] [id number], [place] [address]- 9614 Sep, [facility] [place] [facility] [address] [facility] [id number][place] [address]- 5122 Sep, Hip pain associated with recalled total hip arthroplasty hardware 996.77 [facility] [place] [facility] [address] [id number] [place] [address]- 4682 Sep, [facility] [place] [facility] [address] [id number] [place] [address]- 8721 Sep, [facility] [place] [facility] [address] [id number] [place] [address]- 8348 Sep, [facility] [place] [facility] [address] [id number] [place] [address]- 8516 Aug, [facility] [place] [facility] [address] [id number] [place] [address]- 9433 Jul, [facility] [place] [facility] [address] [id number] [place] [address]- 5019 June, [facility] [place] [facility] [address] [id number] [place] [address]- 6131 June, [facility] [place] [facility] [address] [id number] [place] [address]- 6768 June, [facility] [place] [facility] [address] [id number] [place] [address]- 6595 June, [facility] [place] [facility] [address] [id number] [place] [address]- 7974 June, [facility] [place] [facility] [address] [id number] [place] [address]- 1495 June, [facility] [place] [facility] [address] [id number] [place] [address]- 9429 May, [facility] [place] [facility] [address] [id number] [place] [address]- 6865 May, [facility] [place] [facility] [address] [id number] [place] [address]- 5582 May, [facility] [place] [facility] [address] [id number] [place] [address]- 1679 Apr, [facility] [place] [facility] [address] [id number] [place] [address]- 1532 30 Apr, 2014 [facility] [place] [facility] [address] [id number] [place] [address]- 3072 Apr, [facility] [place] [facility] [address] [id number] [place] [address]- 6184 19 Apr, 2014 [facility] [place] [facility] [address] [facility] [id number] [place] [address]- 3117 Apr, [facility] [place] [facility] [address] [id number] [place] [address]- 5789 13 Apr, 2014 [facility] [place] [facility] [address] [id number] [place] [address]- 6673 Apr, [facility] [place] [facility] [address] [id number] [place] [address]- 9303 Apr, [facility] [place] [facility] [address] [facility] [id number] [place] [address]- 2552 Apr, [facility] [place] [facility] [address] [id number] [place] [address]- 3601 Apr, [facility] [place] [facility] [address] [facility] [id number] [place] [address]- 0376 Apr, [facility] [place] [facility] [address] [facility] [id number] [place] [address]- 0684 Mar, 2014 [facility] [place] [facility] [address] [facility] [id number] [place] [address]- 9860 Mar, 2014 [facility] [place] [facility] [address] [id number] [place] [address]- 0826 16 Mar, 2014 [facility] [place] [facility] [address] [id number] [place] [address]- 3211 16 Mar, 2014 [facility] [place] [facility] [address] [facility] [id number] [place] [address]- 7993 Mar, 2014 [facility] [place] [facility] [address] [facility] [id number] [place] [address]- 1562 10 Mar, 2014 [facility] [place] [facility] [address] [id number] [place] [address]- 5029 15 Feb, 2014 [facility] [place] [facility] [address] [id number] [place] [address]- 9547 Feb, [facility] [place] [facility] [address] [id number] [place] [address]- 9774 Feb, [facility] [place] [facility] [address] [id number] [place] [address]- 7112 Feb, [facility] [place] [facility] [address] [id number] [place] [address]- 5570 Jan, [facility] [place] [facility] [address] [id number] [place] [address]- 9080 Jan, [facility] [place] [facility] [address] [id number] [place] [address]- 1710 Jan, [facility] [place] [facility] [address] [id number] [place] [address]- 9742 Jan, [facility] [place] [facility] [address] [id number] [place] [address]- 4033 Dec, [facility] [place] [facility] [address] [id number] [place] [address]- 7373 Dec, [facility] [place] [facility] [address] [id number] [place] [address]- 4928 Dec, [facility] [place] [facility] [address] [id number] [place] [address]- 4663 Dec, [facility] [place] [facility] [address] [id number] [place] [address]- 7000 Dec, [facility] [place] [facility] [address] [id number] [place] [address]- 0237 Dec, [facility] [place] [facility] [address] [id number] [place] [address]- 2614 Dec, [facility] [place] [facility] [address] [id number] [place] [address]- 7848 10 Dec, 2013 [facility] [place] [facility] [address] [id number] [place] [address]- 1891 10 Dec, 2013 [facility] [place] [facility] [address] [id number] [place] [address]- 9956 07 Dec, 2013 [facility] [place] [facility] [address] [id number] [place] [address]- 2547 Dec, [facility] [place] [facility] [address] [id number] [place] [address]- 4296 31 Nov, 2013 [facility] [place] [facility] [address] [id number] [place] [address]- 1463 28 Nov, 2013 [facility] [place] [facility] [address] [id number] [place] [address]- 0085 28 Nov, 2013 [facility] [place] [facility] [address] [id number] [place] [address]- 3527 17 Nov, 2013 [facility] [place] [facility] [address] [id number] [place] [address]- 0613 17 Nov, 2013 [facility] [place] [facility] [address] [id number] [place] [address]- 5839 15 Nov, 2013 [facility] [place] [facility] [address] [id number] [place] [address]- 2944 15 Nov, 2013 [facility] [place] [facility] [address] [id number], [place] [address]- 4377 15 Nov, 2013 [facility] [place] [facility] [address] [id number], [place] [address]- 7731 15 Nov, 2013 [facility] [place] [facility] [address] [id number] [place] [address]- 0903 14 Nov, 2013 [facility] [place] [facility] [address] [id number] [place] [address]- 4519 14 Nov, 2013 [facility] [place] [facility] [address] [id number] [place] [address]- 4297 14 Nov, 2013 [facility] [place] [facility] [address] [id number] [place] [address]- 7551 14 Nov, 2013 [facility] [place] [facility] [address] [id number] [place] [address]- 1965 13 Nov, 2013 [facility] [place] [facility] [address] [id number] [place] [address]- 5592 13 Nov, 2013 [facility] [place] [facility] [address] [id number] [place] [address]- 0720 11 Nov, 2013 [facility] [place] [facility] [address] [id number] [place] [address]- 5727 11 Nov, 2013 [facility] [place] [facility] [address] [id number] [place] [address]- 4405 07 Nov, 2013 [facility] [place] [facility] [address] [id number] [place] [address]- 2460 07 Nov, 2013 [facility] [place] [facility] [address] [id number] [place] [address]- 8054 07 Nov, 2013 [facility] [place] [facility] [address] [id number] [place] [address]- 2097 07 Nov, 2013 [facility] [place] [facility] [address] [id number] [place] [address]- 0087 30 Sep, 2013 [facility] [place] [facility] [address] [id number] [place] [address]- 2472 30 Sep, 2013 [facility] [place] [facility] [address] [id number] [place] [address]- 9718 26 Sep, 2013 [facility] [place] [facility] [address] [id number] [place] [address]- 2545 26 Sep, 2013 [facility] [place] [facility] [address] [id number] [place] [address]- 4150 22 Sep, 2013 [facility] [place] [facility] [address] [id number] [place] [address]- 0281 22 Sep, 2013 [facility] [place] [facility] [address] [id number] [place] [address]- 5210 18 Oct, 2013 [facility] [place] [facility] [address] [id number] [place] [address]- 3470 18 Oct, 2013 [facility] [place] [facility] [address] [id number] [place] [address]- 2769 Oct, [facility] [place] [facility] [address] [id number] [place] [address]- 6009 Oct, [facility] [place] [facility] [address] [id number] [place] [address]- 3646 Oct, [facility] [place] [facility] [address] [id number] [place] [address]- 5604 Oct, [facility] [place] [facility] [address] [id number] [place] [address]- 3758 Oct, [facility] [place] [facility] [address] [id number] [place] [address]- 6154 Oct, [facility] [place] [facility] [address] [id number] [place] [address]- 4392 Sep, [facility] [place] [facility] [address] [id number] [place] [address]- 3035 Sep, [facility] [place] [facility] [address] [id number] [place] [address]- 0413 Sep, [facility] [place] [facility] [address] [id number] [place] [address]- 9200 Sep, [facility] [place] [facility] [address] [id number] [place] [address]- 1516 Sep, [facility] [place] [facility] [address] [id number] [place] [address]- 8789 Sep, [facility] [place] [facility] [address] [id number] [place] [address]- 4798 Sep, [facility] [place] [facility] [address] [id number] [place] [address]- 0594 Sep, [facility] [place] [facility] [address] [id number] [place] [address]- 7366 Sep, [facility] [place] [facility] [address] [id number] [place] [address]- 3151 Sep, [facility] [place] [facility] [address] [id number] [place] [address]- 7764 Sep, [facility] [place] [facility] [address] [id number] [place] [address]- 6136 Sep, [facility] [place] [facility] [address] [id number] [place] [address]- 2713 Sep, [facility] [place] [facility] [address] [id number] [place] [address]- 7386 Sep, [facility] [place] [facility] [address] [id number] [place] [address]- 2784 Sep, [facility] [place] [facility] [address] [id number] [place] [address]- 8284 Sep, [facility] [place] [facility] [address] [id number] [place] [address]- 7708 Sep, [facility] [place] [facility] [address] [id number] [place] [address]- 1495 Sep, [facility] [place] [facility] [address] [id number] [place] [address]- 6173 Aug, [facility] [place] [facility] [address] [id number] [place] [address]- 5792 Aug, [facility] [place] [facility] [address] [id number] [place] [address]- 1064 Aug, [facility] [place] [facility] [address] [id number] [place] [address]- 9397 Aug, [facility] [place] [facility] [address] [id number] [place] [address]- 3250 Aug, [facility] [place] [facility] [address] [id number] [place] [address]- 6673 Aug, [facility] [place] [facility] [address] [id number] [place] [address]- 0353 Jul, [facility] [address] [id number] [place] [address]- 6286 Jul, [facility] [place] [facility] [address] [id number] [place] [address]- 9859 Jul, [facility] [address] [id number] [place] [address]- 2990 Jul, [facility] [place] [facility] [address] [id number] [place] [address]- 5562 June, [facility] [address] [id number] [place] [address]- 1931 June, [facility] [address] [id number] [place] [address]- 5879 June, [facility] [place] [facility] [address] [id number] [place] [address]- 6629 June, [facility] [address] [id number] [place] [address]- 4644 June, [facility] [place] [facility] [address] [id number] [place] [address]- 0152 June, [facility] [address] [id number] [place] [address]- 8367 June, [facility] [place] [facility] [address] [id number] [place] [address]- 3198 May, [facility] [place] [facility] [address] [id number] [place] [address]- 7231 May, [facility] [place] [facility] [address] [id number] [place] [address]- 1211 May, [facility] [place] [facility] [address] [id number] [place] [address]- 4992 May, [facility] [place] [facility] [address] [id number] [place] [address]- 9042 17 May, 2013 [facility] [place] [facility] [address] [id number] [place] [address]- 1075 17 May, 2013 [facility] [place] [facility] [address] [id number] [place] [address]- 3438 31 Apr, 2013 [facility] [place] [facility] [address] [id number] [place] [address]- 7144 31 Apr, 2013 [facility] [place] [facility] [address] [id number] [place] [address]- 1752 28 Apr, 2013 [facility] [place] [facility] [address] [id number] [place] [address]- 9631 28 Apr, 2013 [facility] [place] [facility] [address] [id number] [place] [address]- 4115 14 Apr, 2013 [facility] [place] [facility] [address] [id number] [place] [address] 14 Apr, 2013 [facility] [place] [facility] [address] [id number] [place] [address] 12 Apr, 2013 [facility] [place] [facility] [address] [id number] [place] [address] Apr, [facility] [place] [facility] [address] [id number] [place] [address] 10 Apr, 2013 [facility] [place] [facility] [address] [id number] [place] [address] 10 Apr, 2013 [facility] [place] [facility] [address] [id number] [place] [address] 8567 04 Apr, 2013 [facility] [place] [facility] [address] [id number] [place] [address] 04 Apr, 2013 [facility] [place] [facility] [address] [id number] [place] [address]206 03 Apr, 2013 [facility] [place] [facility] [address] [id number] [place] [address] 03 Apr, 2013 [facility] [place] [facility] [address] [id number] [place] [address] Mar, [facility] [address] [id number] [place] [address] Mar, [facility] [place] [facility] [address] [id number] [place] [address] Mar, [facility] [place] [facility] [address] [id number] [place] [address] 39[address] Feb, [facility] [place] [facility] [address] [id number] [place] [address] Feb, [facility] [place] [facility] [address] [id number] [place] [address] 100[address] Feb, [facility] [place] [facility] [address] [id number] [place] [address] 8961 Feb, [facility] [place] [facility] [address] [id number] [place] [address] 6670 Feb, [facility] [place] [facility] [address] [id number] [place] [address] 67[address] Feb, [facility] [place] [facility] [address] [id number] [place] [address] 64[address] Feb, [facility] [place] [facility] [address] [facility] [id number] [place] [address] 98[address] Feb, [facility] [place] [facility] [address] [id number] [place] [address] Feb, [facility] [place] [facility] [address] [id number] [place] [address] Feb, [facility] [place] [facility] [address] [id number] [place] [address] Jan, [facility] [place] [facility] [address] [id number] [place] [address] Jan, [facility] [place] [facility] [address] [id number] [place] [address]- 7695 Jan, [facility] [place] [facility] [address] [id number] [place] [address] Jan, [facility] [address] [id number] [place] [address] 79[address] Jan, [facility] [place] [facility] [address] [id number] [place] [address] Jan, [facility] [address] [id number] [place] [address]- 2685 Jan, [facility] [address] [id number] [place] [address] 480[address] Jan, [facility] [address] [id number] [place] [address] 76[address] Jan, [facility] [address] [id number] [place] [address] Jan, [facility] [address] [id number] [place] [address]159 Jan, [facility] [address] [id number] [place] [address]297 17 Jan, 2013 [facility] [address] [id number] [place] [address] 9428 16 Jan, 2013 [facility] [address] [id number] [place] [address] 6541 Jan, [facility] [place] [facility] [address] [id number] [place] [address] Jan, [facility] [place] [facility] [address] [id number] [place] [address] Jan, [facility] [place] [facility] [address] [id number] [place] [address] Jan, [facility] [place] [facility] [address] [id number] [place] [address] 05 Jan, 2013 [facility] [place] [facility] [address] [id number] [place] [address] Jan, [facility] [place] [facility] [address] [id number] [place] [address] 6413 Jan, [facility] [place] [facility] [address] [id number], [place] [address] Jan, [facility] [place] [facility] [address] [facility] [id number] [place] [address] Dec, [facility] [place] [facility] [address] [id number] [address] Dec, [facility] [place] [facility] [address] [id number] [place] [address] Dec, [facility] [place] [facility] [address] [id number], [place] [address] Dec, [facility] [place] [facility] [address] [id number], [place] [address] Dec, [facility] [place] [facility] [address] [id number], [place] [address]- 4983 Dec, [facility] [place] [facility] [address] [id number], [place] [address] Dec, [facility] [place] [facility] [address] [id number], [place] [address] Dec, [facility] [place] [facility] [address] [id number], [place] [address] 2084 Dec, [facility] [place] [facility] [address] [id number], [place] [address] Dec, [facility] [place] [facility] [address] [id number], [place] [address] Nov, [facility] [place] [facility] [address] [id number], [place] [address] Nov, [facility] [place] [facility] [address] [id number], [place] [address] 7[address] 18 Nov, 2012 [facility] [place] [facility] [address] [id number] [place] [address] 3163 18 Nov, 2012 [facility] [address] [id number] [place] [address]- 4390 Nov, 2012 [facility] [place] [facility] [address] [id number] [place] [address]- 4366 Nov, 2012 [facility] [address] [id number] [place] [address]- 0471 Nov, 2012 [facility] [place] [facility] [address] [id number] [place] [address] 2547 Nov, [facility] [address] [id number] [place] [address]- 2800 Nov, [facility] [place] [facility] [address] [id number] [place] [address]- 3779 Nov, [facility] [address] [id number] [place] [address]- 3133 Oct, [facility] [address] [id number] [place] [address]- 2541 Oct, [facility] [place] [facility] [address] [id number] [place] [address] 2547 Oct, [facility] [place] [facility] [address] [id number] [place] [address]- 2545 25 Oct, 2012 [facility] [place] [facility] [address] [id number] [place] [address] 2547 Oct, [facility] [place] [facility] [address] [id number] [place] [address]- 2543 Sep, [facility] [place] [facility] [address] [id number] [place] [address]- 4829 Sep, [facility] [place] [facility] [address] [id number] [place] [address] 2547 Aug, [facility] [place] [facility] [address] [id number] [place] [address]- 2448 Aug, [facility] [place] [facility] [address] [id number] [place] [address]- 9028 Aug, [facility] [address] [id number] [place] [address]- 7029 Aug, [facility] [address] [id number] [place] [address]- 4270 Aug, [facility] [address] [id number] [place] [address]- 8376 Aug, [facility] [address] [id number] [place] [address]- 4581 Aug, [facility] [address] [id number] [place] [address]- 3886 Jul, [facility] [address] [id number] [place] [address]- 3625 Jul, [facility] [address] [id number] [place] [address]- 2832 June, [facility] [address] [id number] [place] [address]- 5625 June, [facility] [address] [id number] [place] [address]- 3256 June, [facility] [address] [id number] [place] [address]- 5142 June, [facility] [address] [id number] [place] [address]- 5472 June, [facility] [address] [id number] [place] [address]- 8705 June, [facility] [place] [facility] [address] [id number] [place] [address]- 1700 June, [facility] [place] [facility] [address] [id number] [place] [address]- 6422 June, [facility] [address] [id number], [place] [address]- 3285 June, [facility] [address] [id number] [place] [address]- 6978 June, [facility] [address] [id number] [place] [address] June, [facility] [address] [id number] [place] [address]- 2745 May, [facility] [address] [id number] [place] [address]- 1967 May, [facility] [address] [id number] [place] [address]- 7753 May, [facility] [address] [id number] [place] [address]- 5149 May, [facility] [address] [id number] [place] [address]- 0777 Apr, [facility] [address] [id number] [place] [address]- 5160 Apr, [facility] [address] [id number] [place] [address]- 6188 Apr, [facility] [address] [id number] [place] [address]- 6566 Mar, [facility] [address] [id number], [place] [address]- 1465 Mar, [facility] [address] [id number], [place] [address]- 0051 Feb, [facility] [address] [id number] [place] [address]- 8539 Feb, [facility] [place] [facility] [address] [id number] [place] [address]- 6863 Feb, [facility] [address] [id number] [place] [address]- 5391 Feb, [facility] [place] [facility] [address] [id number] [place] [address]- 2546 16 Feb, 2012 [facility] [place] [facility] [address] [id number] [place] [address]- 4926 14 Feb, 2012 [facility] [place] [facility] [address] [id number] [place] [address]- 2546 08 Feb, 2012 [facility] [place] [facility] [address] [id number] [place] [address]- 1376 31 Jan, 2012 [facility] [place] [facility] [address] [id number] [place] [address]- 4471 31 Jan, 2012 [facility] [place] [facility] [address] [id number] [place] [address]- 6046 28 Jan, 2012 [facility] [place] [facility] [address] [id number] [place] [address]- 1482 17 Jan, 2012 [facility] [place] [facility] [address] [id number] [place] [address]- 3809 17 Jan, 2012 [facility] [place] [facility] [address] [id number] [place] [address]- 5793 Jan, [facility] [place] [facility] [address] [id number] [place] [address]- 8800 Jan, [facility] [place] [facility] [address] [id number] [place] [address]- 1627 10 Jan, 2012 [facility] [place] [facility] [address] [id number] [place] [address]- 1668 10 Jan, 2012 [facility] [place] [facility] [address] [id number] [place] [address]- 2546 03 Jan, 2012 [facility] [place] [facility] [address] [id number] [place] [address]- 2996 Jan, [facility] [place] [facility] [address] [id number] [place] [address]- 2546 19 Dec, 2011 [facility] [place] [facility] [address] [id number] [place] [address]- 9443 Dec, [facility] [place] [facility] [address] [id number] [place] [address]- 6353 Dec, [facility] [place] [facility] [address] [id number] [place] [address]- 4196 Dec, [facility] [place] [facility] [address] [id number] [place] [address]- 3107 Nov, [facility] [place] [facility] [address] [id number] [place] [address]- 1434 Nov, [facility] [place] [facility] [address] [id number] [place] [address]- 8410 Nov, [facility] [place] [facility] [address] [id number] [place] [address]- 1638 Oct, [facility] [place] [facility] [address] [id number] [place] [address]- 5079 24 Oct, 2011 [facility] [place] [facility] [address] [id number] [place] [address]- 9134 21 Oct, 2011 [facility] [place] [facility] [address] [id number] [place] [address]- 3432 10 Oct, 2011 [facility] [place] [facility] [address] [id number] [place] [address]- 0411 07 Oct, 2011 [facility] [place] [facility] [address] [id number], [place] [address]- 0025 Oct, [facility] [place] [facility] [address] [id number], [place] [address]- 9540 Oct, [facility] [place] [facility] [address] [id number] [place] [address]- 7201 Sep, [facility] [place] [facility] [address] [id number], [place] [address]- 4116 Sep, [facility] [place] [facility] [address] [id number] [place] [address]- 7556 Sep, [facility] [place] [facility] [address] [id number] [place] [address]- 9271 Sep, [facility] [place] [facility] [address] [id number] [place] [address]- 8214 Sep, [facility] [place] [facility] [address] [id number] [place] [address]- 4886 30 Aug, 2011 [facility] [place] [facility] [address] [id number] [place] [address]- 0051 Aug, [facility] [place] [facility] [address] [id number] [place] [address]- 9086 17 Aug, 2011 [facility] [place] [facility] [address] [id number] [place] [address]- 3930 16 Aug, 2011 [facility] [place] [facility] [address] [id number] [place] [address]- 0845 Aug, [facility] [place] [facility] [address] [id number] [place] [address]- 6430 Aug, [facility] [place] [facility] [address] [id number] [place] [address]- 7456 Aug, [facility] [place] [facility] [address] [id number] [place] [address]- 4206 Jul, [facility] [place] [facility] [address] [id number] [place] [address]- 3066 Jul, [facility] [place] [facility] [address] [id number] [place] [address]- 2453 Jul, [facility] [place] [facility] [address] [id number] [place] [address]- 6677 Jul, [facility] [place] [facility] [address] [id number] [place] [address]- 3121 Jul, [facility] [place] [facility] [address] [id number] [place] [address]- 5477 Jul, [facility] [place] [facility] [address] [id number] [place] [address]- 2707 Jul, [facility] [place] [facility] [address] [id number] [place] [address]- 3021 Jul, [facility] [address] [id number] [place] [address]- 1562 Jul, [facility] [address] [id number] [place] [address]- 6247 June, [facility] [address] [id number] [place] [address]- 7852 June, [facility] [address] [id number] [place] [address]- 1662 June, [facility] [address] [id number] [place] [address]- 2979 June, [facility] [address] [id number] [place] [address]- 3795 June, [facility] [address] [id number] [place] [address]- 7341 June, [facility] [address] [id number] [place] [address]- 8172 June, [facility] [address] [id number] [place] [address]- 6928 June, [facility] [address] [id number] [place] [address]- 7547 May, [facility] [place] [facility] [address] [id number] [place] [address]- 9786 May, [facility] [place] [facility] [address] [id number] [place] [address]- 0544 May, [facility] [place] [facility] [address] [id number] [place] [address]- 6384 19 May, 2011 [facility] [address] [id number] [place] [address]- 8996 16 May, 2011 [facility] [address] [id number] [place] [address]- 2546 16 May, 2011 [facility] [place] [facility] [address] [id number] [place] [address]- 2786 May, [facility] [place] [facility] [address] [id number] [place] [address]- 2506 Apr, [facility] [place] [facility] [address] [id number] [place] [address]- 6626 Apr, [facility] [place] [facility] [address] [id number] [place] [address]- 6726 Apr, [facility] [place] [facility] [address] [id number] [place] [address]- 2740 Apr, [facility] [place] [facility] [address] [facility] [id number] [place] [address]- 3637 Apr, [facility] [address] [facility] [id number] [place] [address]- 4785 Apr, [facility] [place] [facility] [address] [id number] [place] [address]- 3800 Apr, [facility] [place] [facility] [address] [id number] [place] [address]- 9072 Mar, [facility] [place] [facility] [address] [facility] [id number] [place] [address]- 7484 Mar, [facility] [place] [facility] [address] [id number] [place] [address]- 3097 14 Mar, 2011 [facility] [place] [facility] [address] [id number] [place] [address]- 0767 13 Mar, 2011 [facility] [place] [facility] [address] [id number] [place] [address]- 7744 09 Mar, 2011 [facility] [place] [facility] [address] [id number] [place] [address]- 7082 08 Mar, 2011 [facility] [place] [facility] [address] [facility] [id number] [place] [address]- 4849 Mar, [facility] [place] [facility] [address] [id number] [place] [address]- 6852 Feb, [facility] [address] [id number] [place] [address]- 0896 Feb, [facility] [address] [id number] [place] [address]- 1188 Feb, [facility] [address] [id number] [place] [address]- 1486 Feb, [facility] [address] [id number] [place] [address]- 6844 Feb, [facility] [address] [id number] [place] [address]- 9464 Feb, [facility] [address] [id number] [place] [address]- 6948 Feb, [facility] [address] [id number] [place] [address]- 4659 Feb, [facility] [address] [id number] [place] [address]- 8546 Feb, [facility] [address] [id number] [place] [address]- 5579 Feb, [facility] [address] [id number] [place] [address]- 5769 Jan, [facility] [address] [id number] [place] [address]- 6306 Jan, [facility] [address] [id number] [place] [address]- 7170 Jan, [facility] [place] [facility] [address] [id number] [place] [address]- 7164 Jan, [facility] [place] [facility] [address] [id number] [place] [address]- 2442 Jan, [facility] [address] [id number], [place] [address]- 5281 Jan, [facility] [place] [facility] [address] [id number] [place] [address]- 9995 15 Jan, 2011 [facility] [place] [facility] [address] [id number] [place] [address]- 4136 15 Jan, 2011 [facility] [place] [facility] [address] [facility] [id number] [place] [address]- 7856 Jan, [facility] [place] [facility] [address] [id number] [place] [address]- 0552 Jan, [facility] [place] [facility] [address] [id number] [place] [address]- 0680 Jan, [facility] [place] [facility] [address] [id number] [place] [address]- 1630 17 Dec, 2010 [facility] [place] [facility] [address] [id number] [place] [address]- 2047 17 Dec, 2010 [facility] [place] [facility] [address] [id number], [place] [address]- 5728 17 Dec, 2010 [facility] [place] [facility] [address] [id number], [place] [address]- 9281 16 Dec, 2010 [facility] [place] [facility] [address] [id number] [place] [address]- 9002 14 Dec, 2010 [facility] [place] [facility] [address] [id number], [place] [address]- 0910 Dec, [facility] [place] [facility] [address] [id number], [place] [address]- 5125 08 Dec, 2010 [facility] [place] [facility] [address] [id number], [place] [address]- 9203 07 Dec, 2010 [facility] [place] [facility] [address] [facility] [id number], [place] [address]- 8926 02 Dec, 2010 [facility] [place] [facility] [address] [id number], [place] [address]- 6685 Nov, [facility] [place] [facility] [address] [id number] [place] [address]- 4345 31 Nov, 2010 [facility] [address] [id number] [place] [address]- 2705 27 Nov, 2010 [facility] [place] [facility] [address] [id number] [place] [address]- 4566 24 Nov, 2010 [facility] [address] [id number] [place] [address]- 2168 24 Nov, 2010 [facility] [place] [facility] [address] [id number] [place] [address]- 2865 13 Nov, 2010 [facility] [address] [id number] [place] [address]- 4144 11 Aug, 2010 [facility] [address] [id number] [place] [address]- 8953 14 Feb, 2010 [facility] [address] [id number] [place] [address]- 1374 14 Jan, 2010 [facility] [address] [id number] [place] [address]- 2999 Jan, [facility] [place] [facility] [address] [id number] [place] [address]- 5143 Jan, [facility] [address] [facility] [id number] [place] [address]- 0175 Jan, [facility] [place] [facility] [address] [id number] [place] [address] 2545 Jan, [facility] [place] [facility] [address] [id number] [place] [address]- 0896 Dec, [facility] [place] [facility] [address] [id number] [place] [address]- 3415 Dec, [facility] [place] [facility] [address] [id number] [place] [address]- 8611 Dec, [facility] [place] [facility] [address] [id number] [place] [address]- 5082 Dec, [facility] [address] [facility] [id number] [place] [address] Nov, [facility] [address] [facility] [id number] [place] [address]- 0247 Nov, [facility] [address] [facility] [id number] [place] [address] [address]128 Nov, IMMUNIZATIONS No Known Immunizations SOCIAL HISTORY [...]
--- OUTSIDE RECORDS SUMMARY | 2018-01-13 22:10 | XMS REPORT ---
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 Active 227920085 Problem Hypertension I10 Active 26688514 Problem Arthritis M19.90 Active 1701100 Problem 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 Active 90132127 Problem Anxiety F41.9 Active 54650826 Problem Unspecified episodic mood disorder F39 Active 03379335 Problem Left hip pain M25.552 Active 04305311 ALLERGIES No Information ENCOUNTERS Encounter Location Date Diagnosis [facility] [address] [address] Sep, Gastroesophageal reflux disease, esophagitis presence not specified K21.9 and Other chronic pain G89.29 [facility] [id number] [address] Sep, [facility] [id number] [place] [address] 58325- 6747 Sep, [facility] [id number] [place] [address] 05419- 7978 Sep, Chronic hepatitis C without hepatic coma B18.2 [facility] [place] [id number] [place] [address] 55541- 3830 Sep, 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 [facility] [place] [id number] [place] [address] 55220- 2489 Sep, Arthritis M19.90 [facility] [place] [id number] [place] [address] 08799- 4140 Sep, [facility] [place] [id number] [place] [address] 52313- 0623 Sep, Unspecified episodic mood disorder F39 [facility] [place] [id number] [place] [address] 27528- 2380 Aug, [facility] [id number] [place] [address] [id number] Aug, [facility] [place] [id number] [place] [address] 17210- 8125 Aug, Arthritis M19.90 [facility] [place] [id number] [place] [address] 53361- 9610 Aug, [facility] [place] [id number] [place] [address] 45861- 7652 Aug, Obesity (BMI 30.0-34.9) E66.9 ; Unspecified episodic mood disorder F39 and Hypertension I10 [facility] [place] [id number] [place] [address] 82694- 5125 Aug, Unspecified episodic mood disorder F39 [facility] [place] [id number] [place] [address] 10183- 8280 Aug, [facility] [place] [id number] [place] [address] 68311- 9293 Jul, Unspecified episodic mood disorder F39 [facility] [place] [address] [address] 8203 Jul, [facility] [place] [id number] [place] [address] 84810- 5195 Jul, Arthritis M19.90 [facility] [place] [id number] [place] [address] 55568- 8941 Jul, Left hip pain M25.552 ; Hypertension I10 ; Other obesity due to excess calories E66.09 and Body mass index (BMI) of 34.0-34.9 in adult Z68.34 [facility] [place] [id number] [place] [address] 71009- 1893 Jul, Unspecified episodic mood disorder F39 [facility] [place] [id number] [place] [address] 53207- 4752 June, Gastroesophageal reflux disease, esophagitis presence not specified K21.9 [facility] [place] [address] [address] 3960 June, [facility] [id number] [place] [address] 49449- 3390 June, [facility] [place] [id number] [place] [address] 90131- 1077 June, Arthritis M19.90 [facility] [place] [address] [address] 9608 June, [facility] [place] [address] [address]- 4184 June, [facility] [id number] [place] [address] 40196- 6023 June, Unspecified episodic mood disorder F39 [facility] [place] [address] [address] 8430 May, Unspecified episodic mood disorder F39 [facility] [place] [id number] [place] [address] 48341- 2205 May, [address] [address]16- 7522 May, Arthritis M19.90 [facility] [id number] [place] [address] 36971 -0085 May, Dysuria R30.0 ; Abscess L02.91 and Acute cystitis without hematuria N30.00 [id number] [place] [address] 99355- 1070 May, Other disorder of impulse control F63.89 ; Unspecified episodic mood disorder F39 ; Combined drug dependence excluding opioids, 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 ; Anxiety F41.9 and Other psychoactive substance dependence, 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 [place] [id number] [place] [address] 08194- 4688 May, [id number] [place] [address] 87958- 4629 May, Other disorder of impulse control F63.89 ; Unspecified episodic mood disorder F39 ; Combined drug dependence excluding opioids, 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 ; Other psychoactive substance dependence, 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 and Anxiety F41.9 [address] [id number] [place] [address] 90875- 3571 May, Other chronic pain G89.29 ; Left hip pain M25.552 ; Hypertension I10 ; 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, 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 and Unspecified episodic mood disorder F39 [facility] [id number] [place] [address] 84447- 7392 Apr, [facility] [id number] [place] [address] 30721 -6708 Apr, Neck pain M54.2 ; Left hip pain M25.552 and Fall, initial encounter W19.XXXA [address] 00009- 1852 Apr, Unspecified episodic mood disorder F39 ; Combined drug dependence excluding opioids, 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 ; Anxiety F41.9 ; Other psychoactive substance dependence, 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 and Other disorder of impulse control F63.89 [facility] [place] [id number] [place] [address] 38350- 3409 Apr, [facility] [place] [id number] [place] [address] 71350- 0915 Apr, Arthritis M19.90 and Unspecified episodic mood disorder F39 [facility] [place] [id number] [place] [address] 73641- 4865 Apr, Unspecified episodic mood disorder F39 [facility] [place] [id number] [place] [address] 72246- 9120 Apr, [facility] [id number] [place] [address] 47542- 5942 Apr, [facility] [place] [id number] [place] [address] 17768- 6083 Apr, Unspecified episodic mood disorder F39 ; Combined drug dependence excluding opioids, 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 ; Anxiety F41.9 ; Other psychoactive substance dependence, 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 and Other disorder of impulse control F63.89 [facility] [place] [id number] [place] [address] 56896- 0240 Mar, Unspecified episodic mood disorder F39 [facility] [id number] [place] [address] 83475- 6150 Mar, Gastroesophageal reflux disease, esophagitis presence not specified K21.9 [facility] [id number] [place] [address] 71609- 6279 Mar, Arthritis M19.90 and Unspecified episodic mood disorder F39 [facility] [id number] [place] [address] 29933- 0586 Feb, [facility] [id number] [place] [address] 49427- 4042 Feb, [facility] [id number] [place] [address] 85841- 6896 Feb, [facility] [id number] [place] [address] 62453- 2103 Feb, Arthritis M19.90 [facility] [id number] [place] [address] 98201- 7990 Feb, Non-pressure chronic ulcer of right calf, 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 ; Unspecified episodic mood disorder F39 and Left hip pain M25.552 [id number] [place] [address] 40595- 1405 Feb, [id number] [place] [address] 46483- 5385 Feb, [id number] [place] [address] 94344- 8722 Jan, Arthritis M19.90 [address] [id number] [place] [address] 17633- 1783 Jan, Left hip pain M25.552 and Non-pressure chronic ulcer of right calf, 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 [address] [id number] [place] [address] 29682- 4087 Jan, Chronic hepatitis C without hepatic coma B18.2 [place] [id number] [place] [address] 69106- 0488 Jan, Encounter for immunization Z23 ; Venous insufficiency ( chronic) (peripheral) I87.2 ; Non-pressure chronic ulcer of unspecified calf limited to breakdown of skin L97.201 and Gastroesophageal reflux disease, esophagitis presence not specified K21.9 [address] [id number] [place] [address] 42643- 8164 Jan, [id number] [place] [address] 49940- 2765 Jan, Chronic hepatitis C without hepatic coma B18.2 and Encounter for immunization Z23 [facility] [place] [id number] [place] [address] 62294- 5405 Jan, Arthritis M19.90 [facility] [place] [id number] [place] [address] 21291- 6464 Jan, [facility] [place] [id number] [place] [address] 45029- 0446 Dec, [facility] [place] [id number] [place] [address] 50857- 1674 Dec, Unspecified episodic mood disorder F39 [facility] [place] [address] 01308- 3830 Dec, Arthritis M19.90 [facility] [place] [id number] [place] [address] 90828- 1387 Dec, Arthritis M19.90 [facility] [place] [id number] [place] [address] 70866- 9065 Nov, [facility] [place] [id number] [place] [address] 02255- 8769 Nov, [facility] [id number] [place] [address] 54939- 9268 Nov, Other psychoactive substance dependence, 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 ; 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, 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 and Chronic hepatitis C without hepatic coma B18.2 [facility] [id number] [place] [address] 95340- 1363 Nov, Arthritis M19.90 [facility] [id number] [place] [address] 91971 -1262 Oct, Partial thickness burn of abdomen, initial encounter T21.22XA [facility] [place] [id number] [place] [address] 80373- 8130 14 Oct, 2016 [facility] [place] [address] 46349- 3872 Sep, Arthritis M19.90 [facility] [place] [id number] [address]- 2906 Sep, [facility] [id number] [place] [address] 98174- 3666 Sep, [facility] [place] [id number] [place] [address] 73548- 0722 Sep, Unspecified episodic mood disorder F39 ; Chronic hepatitis C without hepatic coma B18.2 and Left hip pain M25.552 [facility] [place] [id number] [address]- 2966 Sep, Arthritis M19.90 and Left hip pain M25.552 [facility] [place] [id number] [place] [address] 60004- 2952 Aug, [facility] [id number] [place] [address] 58923- 2650 Aug, [facility] [place] [id number] [place] [address] 69532- 8840 Aug, Chronic hepatitis C without hepatic coma B18.2 [facility] [place] [address] [address]- 0583 Aug, [facility] [place] [id number] [address]- 1963 Aug, Chronic hepatitis C without hepatic coma B18.2 [facility] [place] [id number] [address]- 3405 Aug, 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, 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 [facility] [place] [id number] [place] [address] 54343- 2740 Aug, [facility] [id number] [address]- 1143 Aug, Chronic hepatitis C without hepatic coma B18.2 and Hypertension I10 [facility] [place] [address] [address]- 3064 Jul, [facility] [place] [id number] [place] [address] 80710- 2904 June, [facility] [id number] [place] [address] 79930- 8030 Apr, Fibromyalgia M79.7 ; Left hip pain M25.552 and Decubitus ulcer of sacral region, stage 1 L89.151 [facility] [place] [id number] [place] [address] 45693- 5696 Apr, [facility] [id number] [place] [address] 66959- 6492 Apr, [facility] [place] [id number] [place] [address] 76115- 0756 Feb, [facility] [id number] [place] [address] 16485- 1799 Dec, Anxiety F41.9 ; Combined drug dependence excluding opioids, 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 and Unspecified episodic mood disorder F39 [facility] [place] [id number] [place] [address] 70632- 7531 Dec, [facility] [place] [id number] [place] [address] 85655- 1313 18 Nov, 2015 [facility] [id number] [place] [address] 62432- 0797 Nov, [facility] [place] [id number] [place] [address] 62895- 2647 10 Nov, 2015 Other disorder of impulse control F63.89 and Anxiety F41.9 [facility] [place] [id number] [place] [address] 71915- 0169 21 Oct, 2015 [facility] [id number] [place] [address] 79659 -3879 14 Oct, 2015 Open wound of left thigh, initial encounter S71.102A [facility] [place] [id number] [place] [address] 21054- 0694 Oct, [facility] [place] [id number] [place] [address] 82979- 5395 Sep, Unspecified episodic mood disorder F39 ; Other disorder of impulse control 312.39 ; Combined drug dependence excluding opioids, 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 and Anxiety F41.9 [facility] [id number] [place] [address] 18035- 1610 Sep, Other disorder of impulse control 312.39 ; Combined drug dependence excluding opioids, 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 ; Anxiety F41.9 and Unspecified episodic mood disorder F39 [facility] [place] [id number] [place] [address] 86838- 4916 Sep, Other chronic pain G89.29 [facility] [id number] [place] [address] 81067- 1506 Sep, [facility] [id number] [place] [address] 42250- 4218 Sep, [facility] [id number] [place] [address] 90706- 4316 Aug, [facility] [id number] [place] [address] 95323- 2110 Aug, [facility] [address] [address]- 2984 Aug, [facility] [id number] [place] [address] 98849- 0847 Jul, [facility] [id number] [place] [address] 33446 2546 Jul, [facility] [id number] [place] [address] 73630 2546 Jul, [facility] [id number] [place] [address] 88581- 3079 Jul, Arthritis M19.90 ; Chronic hepatitis C without hepatic coma B18.2 and Left hip pain M25.552 [facility] [place] [id number] [place] [address] 16752- 5836 Jul, Left knee pain M25.562 [facility] [place] [id number] [place] [address] [id number] [phone] Jul, Combined drug dependence excluding opioids, 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 ; Anxiety F41.9 ; Other disorder of impulse control 312.39 and Unspecified episodic mood disorder F39 [facility] [place] [id number] [place] [address] 29438- 2218 Jul, Left knee pain M25.562 [facility] [place] [id number] [place] [address] [id number]- 7674 Jul, Left knee pain M25.562 and Left hip pain M25.552 [facility] [place] [id number] [place] [address] 82441- [phone] Jul, [facility] [place] [id number] [place] [address] 38195- 4346 June, [facility] [place] [id number] [place] [address] 64455- 0416 June, Combinations of drug dependence excluding opioid type drug, unspecified abuse 304.80 ; Other disorder of impulse control 312.39 ; Unspecified episodic mood disorder F39 and Anxiety F41.9 [facility] [place] [id number] [place] [address] 15659- 0515 June, Other fatigue R53.83 ; Headache R51 and Left knee pain M25.562 [facility] [place] [id number] [place] [address] 50370- 9249 June, Unspecified episodic mood disorder F39 ; Combinations of drug dependence excluding opioid type drug, unspecified abuse 304.80 ; Other disorder of impulse control 312.39 and Anxiety F41.9 [facility] [place] [id number] [place] [address] 75159- 7415 June, Anxiety F41.9 [facility] [place] [id number] [address] 17 Jun, 2015 Pain in left knee M25.562 [facility] [place] [id number] [place] [address] 41954- 9626 June, Anxiety F41.9 and Combinations of drug dependence excluding opioid type drug, unspecified abuse 304.80 [facility], [place] [id number] [place] [address] 32526- 6886 June, Unspecified episodic mood disorder 296.90 ; Combinations of drug dependence excluding opioid type drug, unspecified abuse 304.80 and Other disorder of impulse control 312.39 [id number] [place] [address] 42147- 7482 June, Anxiety F41.9 and Unspecified episodic mood disorder 296.90 [id number] [place] [address] 35535- 3717 May, Arthritis M19.90 [facility] [place] [id number] [place] [address] 07142- 5221 May, Arthritis M19.90 [facility] [place] [id number] [place] [address] 17608- 8977 May, Anxiety F41.9 ; Combinations of drug dependence excluding opioid type drug, unspecified abuse 304.80 and Other disorder of impulse control 312.39 [facility] [place] [id number] [place] [address] 59579- 7854 18 May, 2015 Left knee pain M25.562 [facility] [place] [id number] [place] [address] 66254- 6722 14 May, 2015 Arthritis M19.90 [facility] [place] [id number] [place] [address] 25499- 8380 May, [facility] [place] [id number] [place] [address] 23964- 5206 May, Anxiety F41.9 ; Unspecified episodic mood disorder 296.90 ; Combinations of drug dependence excluding opioid type drug, unspecified abuse 304.80 and Other disorder of impulse control 312.39 [id number] [place] [address] 50619- 2160 May, Left knee pain M25.562 [place] [id number] [place] [address] 74588- 5410 May, Left knee pain M25.562 ; Combinations of drug dependence excluding opioid type drug, unspecified abuse 304.80 ; Other disorder of impulse control 312.39 ; Fibromyalgia M79.7 ; Hypertension I10 ; Unspecified episodic mood disorder 296.90 and Left hip pain M25.552 [id number] [place] [address] 669940- 9822 May, Unspecified episodic mood disorder 296.90 ; Other disorder of impulse control 312.39 ; Combinations of drug dependence excluding opioid type drug, unspecified abuse 304.80 and Anxiety F41.9 [id number] [place] [address] 83402- 6569 May, Left knee pain M25.562 ; Combinations of drug dependence excluding opioid type drug, unspecified abuse 304.80 ; Other disorder of impulse control 312.39 ; Fibromyalgia M79.7 ; Hypertension I10 ; Unspecified episodic mood disorder 296.90 and Left hip pain M25.552 [id number] [place] [address] 16928- 2523 May, Anxiety F41.9 ; Unspecified episodic mood disorder 296.90 ; Other disorder of impulse control 312.39 and Combinations of drug dependence excluding opioid type drug, unspecified abuse 304.80 [id number] [place] [address] 01039- 0950 Apr, 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 and 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, implants and grafts, initial encounter T84.82XA [id number] [place] [address] 74814- 5231 Apr, Anxiety F41.9 ; Unspecified episodic mood disorder 296.90 ; Combinations of drug dependence excluding opioid type drug, unspecified abuse 304.80 and Other disorder of impulse control 312.39 [facility] [place] [address] [address] 4017 Apr, Arthritis M19.90 [facility] [place] [id number] [place] [address] 07818- 9414 Apr, Anxiety F41.9 ; Unspecified episodic mood disorder 296.90 ; Combinations of drug dependence excluding opioid type drug, unspecified abuse 304.80 and Other disorder of impulse control 312.39 [facility] [place] [id number] [place] [address] 63559- 6261 17 Apr, 2015 Arthritis M19.90 [facility] [place] [id number] [place] [address] 51788- 0951 15 Apr, 2015 [facility] [place] [id number] [place] [address] 01790- 4742 Apr, [facility] [place] [id number] [place] [address] 31365- 9721 Apr, Unspecified episodic mood disorder 296.90 ; Combinations of drug dependence excluding opioid type drug, unspecified abuse 304.80 ; Other disorder of impulse control 312.39 and Anxiety F41.9 [facility] [id number] [place] [address] 40318 -0727 Apr, Left knee pain M25.562 [facility] [place] [id number] [place] [address] 90452- 1679 Apr, [facility] [place] [id number] [place] [address] 04832- 1254 Mar, Unspecified episodic mood disorder 296.90 ; Anxiety F41.9 ; Other disorder of impulse control 312.39 and Combinations of drug dependence excluding opioid type drug, unspecified abuse 304.80 [facility] [place] [id number] [place] [address] 83820- 5328 Mar, Hyperpigmentation L81.9 [facility] [place] [id number] [place] [address] 61894- 6554 22 Mar, 2015 Arthritis M19.90 and Anxiety F41.9 [id number] [place] [address] 48066- 1942 22 Mar, 2015 Unspecified episodic mood disorder F39 ; Combined drug dependence excluding opioids, 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 ; Other disorder of impulse control F63.89 and Anxiety F41.9 [id number] [place] [address] 75538- 8095 12 Mar, 2015 Well woman exam Z01.419 ; Other fatigue R53.83 ; Hot flashes N95.1 ; Depression, unspecified depression type F32.9 and Body mass index (BMI) of 23.0-23.9 in adult Z68.[address] 80165- 5308 11 Mar, 2015 Unspecified episodic mood disorder 296.90 ; Other disorder of impulse control 312.39 and Anxiety F41.9 [address] [id number] [place] [address] 95782- 4638 11 Mar, 2015 Well woman exam Z01.419 [...] of breast Z12.39 and Limited mobility Z74.09 [address] [id number] [place] [address] 03911- 8091 10 Mar, 2015 [address] 10720- 6293 Mar, [facility] [place] [id number] [place] [address] 27534- 5508 Mar, [facility] [place] [id number] [place] [address] 98953- 0044 Mar, Other specified complication of internal orthopedic prosthetic devices, implants and grafts, initial encounter T84.89XA ; Fibromyalgia M79.7 ; Hypertension I10 ; Anemia D64.9 ; Insomnia G47.00 ; Anxiety F41.9 ; Arthritis M19.90 and Migraine G43.909 [facility] [place] [address] 97400- 6493 Mar, [facility] [place] [address] 95315- 6213 Feb, [facility] [place] [id number] [place] [address] 66989- 0627 Feb, Arthritis M19.90 and Anxiety F41.9 [facility] [place] [id number] [place] [address] 25811- 0573 Feb, [facility] [place] [address] 43241- 2522 Feb, [facility] [place] [id number] [place] [address] 02247- 0226 Feb, [facility] [place] [id number] [place] [address] 33939- 0268 Feb, [facility] [place] [id number] [place] [address] 69650- 0729 Feb, Anxiety F41.9 [facility] [place] [address] 52473- 1225 Feb, [facility] [place] [id number] [place] [address] 42421- 2585 Feb, [facility] [place] [id number] [place] [address] 05581- 5572 Feb, 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 and Fibromyalgia M79.7 [facility] [place] [id number] [place] [address] 05134- 6260 Feb, [facility] [place] [address] [address]- 9972 Jan, [facility] [place] [id number] [place] [address] 78524- 5322 Jan, [facility] [place] [id number] [place] [address] 39908- 0965 Jan, [facility] [place] [id number] [place] [address] 83431- 3806 Jan, [facility] [place] [id number] [place] [address] 36158- 7436 Jan, [facility] [place] [id number] [place] [address] 54851- 9861 Jan, [facility] [place] [id number] [place] [address] 27542- 3918 Jan, [facility] [place] [id number] [place] [address] 76123- 9530 Jan, [facility] [place] [id number] [place] [address] 75613- 6251 Dec, [facility] [place] [id number] [place] [address] 19012- 2286 Dec, Left knee pain M25.562 [facility] [place] [id number] [place] [address] 68989- 2423 Dec, Left knee pain M25.562 [facility] [place] [id number] [place] [address] 35011- 3922 Dec, Fibromyalgia M79.7 ; Hypertension I10 and Arthritis M19.90 [facility] [place] [id number] [place] [address] 67859- 2165 Dec, [facility] [address] [id number] [address]- 0786 Dec, [facility] [place] [facility] [address] [facility] [id number] [address]- 9560 Dec, [facility] [place] [facility] [address] [facility] [id number] [address]- 1541 Dec, [facility] [place] [facility] [address] [facility] [id number] [place] [address] 99019- 3897 Nov, [facility] [place] [facility] [address] [id number] [address]- 0756 Nov, [facility] [place] [facility] [id number] [place] [address], [place] [address]- 4834 Nov, [facility] [place] [facility] [id number] [place] [address] 26503- 8082 Nov, Hypertension I10 [facility] [place] [facility] [address] [facility] [id number] [place] [address]- 4847 23 Oct, 2014 [facility] [place] [facility] [address] [facility] [id number] [address]- 7254 17 Oct, 2014 [facility] [place] [facility] [id number] [address]- 2522 04 Oct, 2014 [facility] [place] [facility] [address] [facility] [id number] [address]- 7977 Oct, [facility] [place] [facility] [address] [facility] [id number] [place] [address]- 9497 Oct, [facility] [place] [facility] [address] [facility] [id number] [place] [address]- 7419 Sep, [facility] [place] [facility] [address] [facility] [id number] [place] [address]- 3281 Sep, [facility] [place] [facility] [address] [facility] [id number] [place] [address]- 8965 Sep, Hip pain associated with recalled total hip arthroplasty hardware 996.77 [facility] [place] [facility] [address] [id number] [place] [address]- 6178 Sep, [facility] [place] [facility] [address] [id number] [place] [address]- 3309 Sep, [facility] [place] [facility] [address] [id number] [place] [address]- 3292 Sep, [facility] [place] [facility] [address] [id number] [place] [address]- 8534 Aug, [facility] [place] [facility] [address] [id number] [place] [address]- 6022 Jul, [facility] [place] [facility] [address] [id number] [place] [address]- 0032 June, [facility] [place] [facility] [address] [id number] [place] [address]- 0347 June, [facility] [place] [facility] [address] [id number] [place] [address]- 3156 June, [facility] [place] [facility] [address] [id number] [place] [address]- 7966 June, [facility] [place] [facility] [address] [id number] [place] [address]- 0744 June, [facility] [place] [facility] [address] [id number] [place] [address]- 3238 June, [facility] [place] [facility] [address] [id number] [place] [address]- 0705 May, [facility] [place] [facility] [address] [id number] [place] [address]- 2218 May, [facility] [place] [facility] [address] [id number] [place] [address]- 7921 May, [facility] [place] [facility] [address] [id number] [place] [address]- 0398 Apr, [facility] [place] [facility] [address] [id number] [place] [address]- 9208 30 Apr, 2014 [facility] [place] [facility] [address] [id number] [place] [address]- 5705 Apr, [facility] [place] [facility] [address] [id number] [place] [address]- 8941 19 Apr, 2014 [facility] [place] [facility] [address] [facility] [id number] [place] [address]- 3745 Apr, [facility] [place] [facility] [address] [id number] [place] [address]- 5589 13 Apr, 2014 [facility] [place] [facility] [address] [id number] [place] [address]- 0803 Apr, [facility] [place] [facility] [address] [id number] [place] [address]- 1701 Apr, [facility] [place] [facility] [address] [facility] [id number] [place] [address]- 1625 Apr, [facility] [place] [facility] [address] [id number] [place] [address]- 2066 Apr, [facility] [place] [facility] [address] [facility] [id number] [place] [address]- 9821 Apr, [facility] [place] [facility] [address] [facility] [id number] [place] [address]- 2168 Mar, 2014 [facility] [place] [facility] [address] [facility] [id number] [place] [address]- 1101 Mar, 2014 [facility] [place] [facility] [address] [id number] [place] [address]- 7137 16 Mar, 2014 [facility] [place] [facility] [address] [id number] [place] [address]- 5171 16 Mar, 2014 [facility] [place] [facility] [address] [facility] [id number] [place] [address]- 2902 Mar, 2014 [facility] [place] [facility] [address] [facility] [id number] [place] [address]- 3468 10 Mar, 2014 [facility] [place] [facility] [address] [id number] [place] [address]- 9892 15 Feb, 2014 [facility] [place] [facility] [address] [id number] [place] [address]- 2290 Feb, [facility] [place] [facility] [address] [id number] [place] [address]- 9074 Feb, [facility] [place] [facility] [address] [id number] [place] [address]- 4943 Feb, [facility] [place] [facility] [address] [id number] [place] [address]- 8135 Jan, [facility] [place] [facility] [address] [id number] [place] [address]- 1239 Jan, [facility] [place] [facility] [address] [id number] [place] [address]- 8412 Jan, [facility] [place] [facility] [address] [id number] [place] [address]- 5421 Jan, [facility] [place] [facility] [address] [id number] [place] [address]- 7309 Dec, [facility] [place] [facility] [address] [id number] [place] [address]- 9464 Dec, [facility] [place] [facility] [address] [id number] [place] [address]- 1192 Dec, [facility] [place] [facility] [address] [id number] [place] [address]- 2881 Dec, [facility] [place] [facility] [address] [id number] [place] [address]- 4815 Dec, [facility] [place] [facility] [address] [id number] [place] [address]- 0890 Dec, [facility] [place] [facility] [address] [id number] [place] [address]- 5243 Dec, [facility] [place] [facility] [address] [id number] [place] [address]- 3735 10 Dec, 2013 [facility] [place] [facility] [address] [id number] [place] [address]- 1294 10 Dec, 2013 [facility] [place] [facility] [address] [id number] [place] [address]- 2820 07 Dec, 2013 [facility] [place] [facility] [address] [id number] [place] [address]- 8875 Dec, [facility] [place] [facility] [address] [id number] [place] [address]- 6272 31 Nov, 2013 [facility] [place] [facility] [address] [id number] [place] [address]- 3429 28 Nov, 2013 [facility] [place] [facility] [address] [id number] [place] [address]- 2750 28 Nov, 2013 [facility] [place] [facility] [address] [id number] [place] [address]- 4136 17 Nov, 2013 [facility] [place] [facility] [address] [id number] [place] [address]- 9081 17 Nov, 2013 [facility] [place] [facility] [address] [id number] [place] [address]- 1393 15 Nov, 2013 [facility] [place] [facility] [address] [id number] [place] [address]- 9316 15 Nov, 2013 [facility] [place] [facility] [address] [id number] [address]- 2329 15 Nov, 2013 [facility] [place] [facility] [address] [id number] [address]- 3110 15 Nov, 2013 [facility] [place] [facility] [address] [id number] [place] [address]- 2790 14 Nov, 2013 [facility] [place] [facility] [address] [id number] [place] [address]- 0676 14 Nov, 2013 [facility] [place] [facility] [address] [id number] [place] [address]- 3699 14 Nov, 2013 [facility] [place] [facility] [address] [id number] [place] [address]- 3686 14 Nov, 2013 [facility] [place] [facility] [address] [id number] [place] [address]- 8305 13 Nov, 2013 [facility] [place] [facility] [address] [id number] [place] [address]- 6570 13 Nov, 2013 [facility] [place] [facility] [address] [id number] [place] [address]- 2890 11 Nov, 2013 [facility] [place] [facility] [address] [id number] [place] [address]- 8079 11 Nov, 2013 [facility] [place] [facility] [address] [id number] [place] [address] 07 Nov, 2013 [facility] [place] [facility] [address] [id number] [place] [address] 07 Nov, 2013 [facility] [place] [facility] [address] [id number] [place] [address] 07 Nov, 2013 [facility] [place] [facility] [address] [id number] [place] [address] 07 Nov, 2013 [facility] [place] [facility] [address] [id number] [place] [address] 30 Sep, 2013 [facility] [place] [facility] [address] [id number] [place] [address] 30 Sep, 2013 [facility] [place] [facility] [address] [id number] [place] [address] 26 Sep, 2013 [facility] [place] [facility] [address] [id number] [place] [address] 26 Sep, 2013 [facility] [place] [facility] [address] [id number] [place] [address] 22 Sep, 2013 [facility] [place] [facility] [address] [id number] [place] [address] 22 Sep, 2013 [facility] [place] [facility] [address] [id number] [place] [address] 18 Oct, 2013 [facility] [place] [facility] [address] [id number] [place] [address] 18 Oct, 2013 [facility] [place] [facility] [address] [id number] [place] [address] Oct, [facility] [place] [facility] [address] [id number] [place] [address] Oct, [facility] [place] [facility] [address] [id number] [place] [address] Oct, [facility] [place] [facility] [address] [id number] [place] [address] Oct, [facility] [place] [facility] [address] [id number] [place] [address] Oct, [facility] [place] [facility] [address] [id number] [place] [address] Oct, [facility] [place] [facility] [address] [id number] [place] [address]- [address] Sep, [facility] [place] [facility] [address] [id number] [place] [address] Sep, [facility] [place] [facility] [address] [id number] [place] [address] Sep, [facility] [place] [facility] [address] [id number] [place] [address]- 26[address] Sep, [facility] [place] [facility] [address] [id number] [place] [address] 235[address] Sep, [facility] [place] [facility] [address] [id number] [place] [address] Sep, [facility] [place] [facility] [address] [id number] [place] [address] Sep, [facility] [place] [facility] [address] [id number] [place] [address] Sep, [facility] [place] [facility] [address] [id number] [place] [address] 38[address] Sep, [facility] [place] [facility] [address] [id number] [place] [address] Sep, [facility] [place] [facility] [address] [id number] [place] [address] 77[address] Sep, [facility] [place] [facility] [address] [id number] [place] [address] Sep, [facility] [place] [facility] [address] [id number] [place] [address] Sep, [facility] [place] [facility] [address] [id number] [place] [address] Sep, [facility] [place] [facility] [address] [id number] [place] [address] Sep, [facility] [place] [facility] [address] [id number] [place] [address] 65[address] Sep, [facility] [place] [facility] [address] [id number] [place] [address] 94[address] Sep, [facility] [place] [facility] [address] [id number] [place] [address] Sep, [facility] [place] [facility] [address] [id number] [place] [address] Aug, [facility] [place] [facility] [address] [id number] [place] [address] Aug, [facility] [place] [facility] [address] [id number] [place] [address] 42[address] Aug, [facility] [place] [facility] [address] [id number] [place] [address] 1715 Aug, [facility] [place] [facility] [address] [id number] [place] [address] 0993 Aug, [facility] [place] [facility] [address] [id number] [place] [address] 30[address] Aug, [facility] [place] [facility] [address] [id number] [place] [address] Jul, [facility] [address] [id number] [place] [address] Jul, [facility] [place] [facility] [address] [id number] [place] [address] Jul, [facility] [address] [id number] [place] [address] 9[address] Jul, [facility] [place] [facility] [address] [id number] [place] [address] June, [facility] [address] [id number] [place] [address] June, [facility] [address] [id number] [place] [address] 289[address] June, [facility] [place] [facility] [address] [id number] [place] [address] 7081 June, [facility] [address] [id number] [place] [address] 0811 June, [facility] [place] [facility] [address] [id number] [place] [address] 5148 June, [facility] [address] [id number] [place] [address] 9417 June, [facility] [place] [facility] [address] [id number] [place] [address] 4865 May, [facility] [place] [facility] [address] [id number] [place] [address] 5814 May, [facility] [place] [facility] [address] [id number] [place] [address] 1448 May, [facility] [place] [facility] [address] [id number] [place] [address]- 1441 May, [facility] [place] [facility] [address] [id number] [place] [address] 0601 17 May, 2013 [facility] [place] [facility] [address] [id number] [place] [address]- 3986 17 May, 2013 [facility] [place] [facility] [address] [id number] [place] [address]- 5980 31 Apr, 2013 [facility] [place] [facility] [address] [id number] [place] [address]- 8185 31 Apr, 2013 [facility] [place] [facility] [address] [id number] [place] [address]- 4689 28 Apr, 2013 [facility] [place] [facility] [address] [id number] [place] [address]- 5244 28 Apr, 2013 [facility] [place] [facility] [address] [id number] [place] [address]- 6899 14 Apr, 2013 [facility] [place] [facility] [address] [id number] [place] [address]- 0912 14 Apr, 2013 [facility] [place] [facility] [address] [id number] [place] [address]- 0730 12 Apr, 2013 [facility] [place] [facility] [address] [id number] [place] [address]- 7071 Apr, [facility] [place] [facility] [address] [id number] [place] [address]- 0376 10 Apr, 2013 [facility] [place] [facility] [address] [id number] [place] [address]- 5237 10 Apr, 2013 [facility] [place] [facility] [address] [id number] [place] [address]- 1209 04 Apr, 2013 [facility] [place] [facility] [address] [id number] [place] [address]- 8670 04 Apr, 2013 [facility] [place] [facility] [address] [id number] [place] [address]- 6746 03 Apr, 2013 [facility] [place] [facility] [address] [id number] [place] [address]- 9788 03 Apr, 2013 [facility] [place] [facility] [address] [id number] [place] [address]- 2943 Mar, [facility] [address] [id number] [place] [address]- 8722 Mar, [facility] [place] [facility] [address] [id number] [place] [address]- 8295 Mar, [facility] [place] [facility] [address] [id number] [place] [address]- 5194 Feb, [facility] [place] [facility] [address] [id number] [place] [address]- 5143 Feb, [facility] [place] [facility] [address] [id number] [place] [address]- 7903 Feb, [facility] [place] [facility] [address] [id number] [place] [address]- 4007 Feb, [facility] [place] [facility] [address] [id number] [place] [address]- 6804 Feb, [facility] [place] [facility] [address] [id number] [place] [address]- 5136 Feb, [facility] [place] [facility] [address] [id number] [place] [address]- 0444 Feb, [facility] [place] [facility] [address] [facility] [id number] [place] [address]- 9325 Feb, [facility] [place] [facility] [address] [id number] [place] [address]- 1610 Feb, [facility] [place] [facility] [address] [id number] [place] [address]- 5842 Feb, [facility] [place] [facility] [address] [id number] [place] [address]- 2024 Jan, [facility] [place] [facility] [address] [id number] [place] [address]- 0149 Jan, [facility] [place] [facility] [address] [id number] [place] [address]- 7723 Jan, [facility] [place] [facility] [address] [id number] [place] [address]- 5228 Jan, [facility] [address] [id number] [place] [address]- 4789 Jan, [facility] [place] [facility] [address] [id number] [place] [address]- 2207 Jan, [facility] [address] [id number] [place] [address]- 7754 Jan, [facility] [address] [id number] [place] [address]- 3764 Jan, [facility] [address] [id number] [place] [address]- 2296 Jan, [facility] [address] [id number] [place] [address]- 1126 Jan, [facility] [address] [id number] [place] [address]- 0610 Jan, [facility] [address] [id number] [place] [address]- 2335 17 Jan, 2013 [facility] [address] [id number] [place] [address]- 8767 16 Jan, 2013 [facility] [address] [id number] [place] [address]- 3988 Jan, [facility] [place] [facility] [address] [id number] [place] [address]- 6308 Jan, [facility] [place] [facility] [address] [id number] [place] [address] Jan, [facility] [place] [facility] [address] [id number] [place] [address]- 7298 Jan, [facility] [place] [facility] [address] [id number] [place] [address]- 1138 05 Jan, 2013 [facility] [place] [facility] [address] [id number] [place] [address]- 5168 Jan, [facility] [place] [facility] [address] [id number] [place] [address]- 6730 Jan, [facility] [place] [facility] [address] [id number] [address] 2736 Jan, [facility] [place] [facility] [address] [facility] [id number] [place] [address]- 4296 Dec, [facility] [place] [facility] [address] [id number] [address]- 8266 Dec, [facility] [place] [facility] [address] [id number] [place] [address]- 0925 Dec, [facility] [place] [facility] [address] [id number] [place] [address]- 1351 Dec, [facility] [place] [facility] [address] [id number] [place] [address]- 6871 Dec, [facility] [place] [facility] [address] [id number] [address]- 2229 Dec, [facility] [place] [facility] [address] [id number] [place] [address]- 8851 Dec, [facility] [place] [facility] [address] [id number] [place] [address]- 3998 Dec, [facility] [place] [facility] [address] [id number] [place] [address]- 3857 Dec, [facility] [place] [facility] [address] [id number] [place] [address]- 5713 Dec, [facility] [place] [facility] [address] [id number] [place] [address]- 3708 Nov, [facility] [place] [facility] [address] [id number] [place] [address]- 4699 Nov, [facility] [place] [facility] [address] [id number] [place] [address]- 3743 18 Nov, 2012 [facility] [place] [facility] [address] [id number] [place] [address]- 8877 18 Nov, 2012 [facility] [address] [id number] [place] [address]- 1699 Nov, 2012 [facility] [place] [facility] [address] [id number] [place] [address]- 4696 Nov, 2012 [facility] [address] [id number] [place] [address]- 7380 Nov, 2012 [facility] [place] [facility] [address] [id number] [place] [address] 2544 Nov, [facility] [address] [id number] [place] [address]- 7319 Nov, [facility] [place] [facility] [address] [id number] [place] [address]- 9318 Nov, [facility] [address] [id number] [place] [address]- 2077 Oct, [facility] [address] [id number] [place] [address]- 254 Oct, [facility] [place] [facility] [address] [id number] [place] [address] 254 Oct, [facility] [place] [facility] [address] [id number] [place] [address]- 2542 25 Oct, 2012 [facility] [place] [facility] [address] [id number] [place] [address] 2540 Oct, [facility] [place] [facility] [address] [id number] [place] [address]- 2549 Sep, [facility] [place] [facility] [address] [id number] [place] [address]- 9506 Sep, [facility] [place] [facility] [address] [id number] [place] [address] 2547 Aug, [facility] [place] [facility] [address] [id number] [place] [address]- 2688 Aug, [facility] [place] [facility] [address] [id number] [place] [address]- 9886 Aug, [facility] [address] [id number] [place] [address]- 6934 Aug, [facility] [address] [id number] [place] [address]- 4295 Aug, [facility] [address] [id number] [place] [address]- 1037 Aug, [facility] [address] [id number] [place] [address]- 8244 Aug, [facility] [address] [id number] [place] [address]- 3384 Jul, [facility] [address] [id number] [place] [address]- 3362 Jul, [facility] [address] [id number] [place] [address]- 7597 June, [facility] [address] [id number] [place] [address]- 4792 June, [facility] [address] [id number] [place] [address]- 2962 June, [facility] [address] [id number] [place] [address]- 5679 June, [facility] [address] [id number] [place] [address]- 0900 June, [facility] [address] [id number] [place] [address]- 8868 June, [facility] [place] [facility] [address] [id number] [place] [address]- 0727 June, [facility] [place] [facility] [address] [id number] [place] [address]- 2075 June, [facility] [address] [id number] [address]- 6584 June, [facility] [address] [id number] [place] [address]- 3232 June, [facility] [address] [id number] [place] [address] June, [facility] [address] [id number] [place] [address]- 6299 May, [facility] [address] [id number] [place] [address]- 5025 May, [facility] [address] [id number] [place] [address]- 6008 May, [facility] [address] [id number] [place] [address]- 5057 May, [facility] [address] [id number] [place] [address]- 4869 Apr, [facility] [address] [id number] [place] [address]- 4851 Apr, [facility] [address] [id number] [place] [address]- 5576 Apr, [facility] [address] [id number] [place] [address]- 6142 Mar, [facility] [address] [id number] [place] [address]- 8943 Mar, [facility] [address] [id number] [address]- 0045 Feb, [facility] [address] [id number] [place] [address]- 2803 Feb, [facility] [place] [facility] [address] [id number] [place] [address]- 5261 Feb, [facility] [address] [id number] [place] [address]- 0467 Feb, [facility] [place] [facility] [address] [id number] [place] [address]- 2546 16 Feb, 2012 [facility] [place] [facility] [address] [id number] [place] [address]- 0736 14 Feb, 2012 [facility] [place] [facility] [address] [id number] [place] [address]- 2546 08 Feb, 2012 [facility] [place] [facility] [address] [id number] [place] [address]- 3446 31 Jan, 2012 [facility] [place] [facility] [address] [id number] [place] [address]- 7885 31 Jan, 2012 [facility] [place] [facility] [address] [id number] [place] [address]- 8986 28 Jan, 2012 [facility] [place] [facility] [address] [id number] [place] [address]- 4325 17 Jan, 2012 [facility] [place] [facility] [address] [id number] [place] [address]- 5852 17 Jan, 2012 [facility] [place] [facility] [address] [id number] [place] [address]- 6640 Jan, [facility] [place] [facility] [address] [id number] [place] [address]- 6582 Jan, [facility] [place] [facility] [address] [id number] [place] [address]- 4041 10 Jan, 2012 [facility] [place] [facility] [address] [id number] [place] [address]- 2314 10 Jan, 2012 [facility] [place] [facility] [address] [id number] [place] [address]- 2546 03 Jan, 2012 [facility] [place] [facility] [address] [id number] [place] [address]- 7036 Jan, [facility] [place] [facility] [address] [id number] [place] [address]- 2546 19 Dec, 2011 [facility] [place] [facility] [address] [id number] [place] [address]- 4602 Dec, [facility] [place] [facility] [address] [id number] [place] [address]- 5842 Dec, [facility] [place] [facility] [address] [id number] [place] [address]- 1632 Dec, [facility] [place] [facility] [address] [id number] [place] [address]- 3122 Nov, [facility] [place] [facility] [address] [id number] [place] [address]- 5775 Nov, [facility] [place] [facility] [address] [id number] [place] [address]- 2382 Nov, [facility] [place] [facility] [address] [id number] [place] [address]- 3253 Oct, [facility] [place] [facility] [address] [id number] [place] [address]- 9919 24 Oct, 2011 [facility] [place] [facility] [address] [id number] [place] [address]- 5560 21 Oct, 2011 [facility] [place] [facility] [address] [id number] [place] [address]- 2513 10 Oct, 2011 [facility] [place] [facility] [address] [id number] [place] [address]- 7344 07 Oct, 2011 [facility] [place] [facility] [address] [id number] [place] [address]- 8108 Oct, [facility] [place] [facility] [address] [id number] [place] [address]- 3073 Oct, [facility] [place] [facility] [address] [id number] [place] [address]- 4415 Sep, [facility] [place] [facility] [address] [id number] [place] [address]- 0018 Sep, [facility] [place] [facility] [address] [id number] [place] [address]- 2782 Sep, [facility] [place] [facility] [address] [id number] [place] [address]- 3354 Sep, [facility] [place] [facility] [address] [id number] [place] [address]- 2639 Sep, [facility] [place] [facility] [address] [id number] [place] [address]- 4016 30 Aug, 2011 [facility] [place] [facility] [address] [id number] [place] [address]- 8061 Aug, [facility] [place] [facility] [address] [id number] [place] [address]- 0826 17 Aug, 2011 [facility] [place] [facility] [address] [id number] [place] [address]- 9415 16 Aug, 2011 [facility] [place] [facility] [address] [id number] [place] [address]- 7448 Aug, [facility] [place] [facility] [address] [id number] [place] [address]- 2758 Aug, [facility] [place] [facility] [address] [id number] [place] [address]- 6656 Aug, [facility] [place] [facility] [address] [id number] [place] [address]- 2190 Jul, [facility] [place] [facility] [address] [id number] [place] [address]- 0925 Jul, [facility] [place] [facility] [address] [id number] [place] [address]- 8582 Jul, [facility] [place] [facility] [address] [id number] [place] [address]- 7656 Jul, [facility] [place] [facility] [address] [id number] [place] [address]- 3733 Jul, [facility] [place] [facility] [address] [id number] [place] [address]- 0298 Jul, [facility] [place] [facility] [address] [id number] [place] [address]- 5470 Jul, [facility] [place] [facility] [address] [id number] [place] [address]- 9227 Jul, [facility] [address] [id number] [place] [address]- 2044 Jul, [facility] [address] [id number] [place] [address]- 9325 June, [facility] [address] [id number] [place] [address]- 5372 June, [facility] [address] [id number] [place] [address]- 0121 June, [facility] [address] [id number] [place] [address]- 7813 June, [facility] [address] [id number] [place] [address]- 9221 June, [facility] [address] [id number] [place] [address]- 6599 June, [facility] [address] [id number] [place] [address]- 9094 June, [facility] [address] [id number] [place] [address]- 9674 June, [facility] [address] [id number] [place] [address]- 8474 May, [facility] [place] [facility] [address] [id number] [place] [address]- 8357 May, [facility] [place] [facility] [address] [id number] [place] [address]- 4000 May, [facility] [place] [facility] [address] [id number] [place] [address]- 4117 19 May, 2011 [facility] [address] [id number] [place] [address] 16 May, 2011 [facility] [address] [id number] [place] [address] 16 May, 2011 [facility] [place] [facility] [address] [id number] [place] [address] May, [facility] [place] [facility] [address] [id number] [place] [address] Apr, [facility] [place] [facility] [address] [id number] [place] [address] Apr, [facility] [place] [facility] [address] [id number] [place] [address] Apr, [facility] [place] [facility] [address] [id number] [place] [address] Apr, [facility] [place] [facility] [address] [facility] [id number] [place] [address] Apr, [facility] [address] [facility] [id number] [place] [address] Apr, [facility] [place] [facility] [address] [id number] [place] [address]- 97[address] Apr, [facility] [place] [facility] [address] [id number] [place] [address] 99[address] Mar, [facility] [place] [facility] [address] [facility] [id number] [place] [address] Mar, [facility] [place] [facility] [address] [id number] [place] [address]- [address] 14 Mar, 2011 [facility] [place] [facility] [address] [id number] [place] [address] 1524 13 Mar, 2011 [facility] [place] [facility] [address] [id number] [place] [address] 62[address] 09 Mar, 2011 [facility] [place] [facility] [address] [id number] [place] [address] 08 Mar, 2011 [facility] [place] [facility] [address] [facility] [id number] [place] [address] Mar, [facility] [place] [facility] [address] [id number] [place] [address] Feb, [facility] [address] [id number] [place] [address] Feb, [facility] [place] [facility] [address] [id number] [place] [address] Feb, [facility] [address] [id number] [place] [address] Feb, [facility] [address] [id number] [place] [address] Feb, [facility] [address] [id number] [place] [address] Feb, [facility] [address] [id number] [place] [address] 29[address] Feb, [facility] [address] [id number] [place] [address] 69[address] Feb, [facility] [address] [id number] [place] [address] Feb, [facility] [address] [id number] [place] [address] Feb, [facility] [address] [id number] [place] [address] 88[address] Jan, [facility] [address] [id number] [place] [address] Jan, [facility] [address] [id number] [place] [address] 6[address] Jan, [facility] [place] [facility] [address] [id number] [place] [address] 98[address] Jan, [facility] [place] [facility] [address] [id number] [place] [address] Jan, [facility] [address] [id number] [address] Jan, [facility] [place] [facility] [address] [id number] [place] [address] 15 Jan, 2011 [facility] [place] [facility] [address] [id number] [place] [address]- [address]80 15 Jan, 2011 [facility] [place] [facility] [address] [facility] [id number] [place] [address]- [address] Jan, [facility] [place] [facility] [address] [id number] [place] [address] Jan, [facility] [place] [facility] [address] [id number] [place] [address] 99[address] Jan, [facility] [place] [facility] [address] [id number] [place] [address]40 17 Dec, 2010 [facility] [place] [facility] [address] [id number] [place] [address] 0723 17 Dec, 2010 [facility] [place] [facility] [address] [id number] [address] 17 Dec, 2010 [facility] [place] [facility] [address] [id number] [place] [address] 16 Dec, 2010 [facility] [place] [facility] [address] [id number] [place] [address]- 4707 14 Dec, 2010 [facility] [place] [facility] [address] [id number] [place] [address] Dec, [facility] [place] [facility] [address] [id number] [place] [address] 267[address] 08 Dec, 2010 [facility] [place] [facility] [address] [id number] [place] [address] 07 Dec, 2010 [facility] [place] [facility] [address] [facility] [id number] [place] [address] 02 Dec, 2010 [facility] [place] [facility] [address] [id number] [place] [address] Nov, [facility] [place] [facility] [address] [id number] [place] [address]- 4180 31 Nov, 2010 [facility] [address] [id number] [place] [address]- 1635 27 Nov, 2010 [facility] [place] [facility] [address] [id number] [place] [address]- 4826 24 Nov, 2010 [facility] [address] [id number] [place] [address]- 3923 24 Nov, 2010 [facility] [place] [facility] [address] [id number] [place] [address]- 1118 13 Nov, 2010 [facility] [address] [id number] [place] [address]- 7131 11 Aug, 2010 [facility] [address] [id number] [place] [address]- 2712 14 Feb, 2010 [facility] [address] [id number] [place] [address]- 1529 14 Jan, 2010 [facility] [address] [id number] [place] [address]- 6869 Jan, [facility] [place] [facility] [address] [id number] [place] [address]- 9759 Jan, [facility] [address] [facility] [id number] [place] [address] 6[address] Jan, [facility] [place] [facility] [address] [id number] [place] [address] 25[address] Jan, [facility] [place] [facility] [address] [id number] [place] [address]- [address]673 Dec, [facility] [place] [facility] [address] [id number] [place] [address]- 3107 Dec, [facility] [place] [facility] [address] [id number] [place] [address]- 7932 Dec, [facility] [place] [facility] [address] [id number] [place] [address] 5340 Dec, [facility] [place] [address] [facility] [id number] [place] [id number] [address] Nov, [facility] [place] [address] [facility] [id number] [place] [address] Nov, [facility], [place] [address] [facility] [id number] [place], [place] [id number] Nov, IMMUNIZATIONS No Known Immunizations SOCIAL HISTORY Never Assessed REASON FOR VISIT PLAN OF CARE VITAL SIGNS MEDICATIONS Medication Instructions Dosage Frequency Start Date End Date Duration Status Clonidine HCl 0.1 MG Orally twice a day 1 tablet 12h 30 Active Aspirin 81 MG Orally [...]
--- OUTSIDE RECORDS SUMMARY | 2018-01-13 22:12 | XMS REPORT ---
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 Active 952875050 Problem Hypertension I10 Active 75459518 Problem Arthritis M19.90 Active 7910565 Problem 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 Active 82477685 Problem Anxiety F41.9 Active 63834266 Problem Unspecified episodic mood disorder F39 Active 86558417 Problem Left hip pain M25.552 Active 06371496 ALLERGIES Substance Reaction Event Type Date Status Propranolol HCl chest pain, headache Drug Allergy Jul, Active Bactrim unknown Drug Allergy Jul, Active Penicillins unknown Non Drug Allergy Jul, Active ENCOUNTERS Encounter Location Date Diagnosis [facility] [address] [place] [address] [id number] [address] Sep, Gastroesophageal reflux disease, esophagitis presence not specified K21.9 and Other chronic pain G89.29 [facility] [address], [place] [address] 4[address] Sep, [facility] [id number] [place] [address] 15152- 0849 Sep, [facility] [id number] [place] [address] 43472- 0324 Sep, Chronic hepatitis C without hepatic coma B18.2 [facility] [id number] [place] [address] 43900- 8304 Sep, 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 [facility] [id number] [place] [address] 44506- 2042 Sep, Arthritis M19.90 [facility] [id number] [place] [address] 11402- 2069 Sep, [facility] [id number] [place] [address] 20678- 8164 Sep, Unspecified episodic mood disorder F39 [facility] [id number] [place] [address] 03176- 3288 Aug, [facility] [id number] [place] [address] [id number] Aug, [facility] [id number] [place] [address] 04933- 4791 Aug, Arthritis M19.90 [facility] [id number] [place] [address] 09778- 1967 Aug, [facility] [id number] [place] [address] 28483- 4517 Aug, Obesity (BMI 30.0-34.9) E66.9 ; Unspecified episodic mood disorder F39 and Hypertension I10 [facility] [address], [place] [address] 6816 Aug, Unspecified episodic mood disorder F39 [facility] [id number] [address] 9[address] Aug, [facility] [id number] [address] 1497 Jul, Unspecified episodic mood disorder F39 [facility] [address], [place] [address] 0136 Jul, [facility] [id number] [place] [address] 72374- 1781 Jul, Arthritis M19.90 [facility] [id number] [place] [address] 92095- 9732 Jul, Left hip pain M25.552 ; Hypertension I10 ; Other obesity due to excess calories E66.09 and Body mass index (BMI) of 34.0-34.9 in adult Z68.34 [facility] [id number] [place] [address] 75197- 1204 Jul, Unspecified episodic mood disorder F39 [facility] [address], [place] [address] 2467 June, Gastroesophageal reflux disease, esophagitis presence not specified K21.9 [facility] [id number] [address] 6711 June, [facility] [address], [place] [address]- 1047 June, [facility] [address], [place] [address] 8533 June, Arthritis M19.90 [facility] [address], [place] [address]- 6959 June, [facility] [address], [place] [address]- 7740 June, [facility] [address], [place] [address]- 5482 June, Unspecified episodic mood disorder F39 [facility] [id number] [place] [address] 31442- 3684 May, Unspecified episodic mood disorder F39 [place] [id number] [place] [address] 49066- 0163 May, [place] [id number] [place] [address] 72357- 0936 May, Arthritis M19.90 [facility] [place] [address] [address] -1830 May, Dysuria R30.0 ; Abscess L02.91 and Acute cystitis without hematuria N30.00 [place] [address] 76935- 8764 May, Other disorder of impulse control F63.89 ; Unspecified episodic mood disorder F39 ; Combined drug dependence excluding opioids, 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 ; Anxiety F41.9 and Other psychoactive substance dependence, 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 [place] [id number] [place] [address] 23408- 6005 May, [place] [id number] [place] [address] 87211- 0526 May, Other disorder of impulse control F63.89 ; Unspecified episodic mood disorder F39 ; Combined drug dependence excluding opioids, 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 ; Other psychoactive substance dependence, 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 and Anxiety F41.9 [place] [id number] [place] [address] 42712- 4424 May, Other chronic pain G89.29 ; Left hip pain M25.552 ; Hypertension I10 ; 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, 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 and Unspecified episodic mood disorder F39 [place] [id number] [place] [address] 72018- 3717 Apr, [facility] [id number] [place] [address] 93332 -2951 Apr, Neck pain M54.2 ; Left hip pain M25.552 and Fall, initial encounter W19.XXXA [facility] [id number] [place] [address] 22111- 9080 Apr, Unspecified episodic mood disorder F39 ; Combined drug dependence excluding opioids, 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 ; Anxiety F41.9 ; Other psychoactive substance dependence, 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 and Other disorder of impulse control F63.89 [facility] [address] 86347- 9980 Apr, [facility] [id number] [place] [address] 71779- 4155 Apr, Arthritis M19.90 and Unspecified episodic mood disorder F39 [facility] [id number] [place] [address] 54840- 1155 Apr, Unspecified episodic mood disorder F39 [facility] [id number] [place] [address] 11097- 7498 Apr, [facility] [id number] [place] [address] 31624- 6579 Apr, [facility] [id number] [place] [address] 39279- 0811 Apr, Unspecified episodic mood disorder F39 ; Combined drug dependence excluding opioids, 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 ; Anxiety F41.9 ; Other psychoactive substance dependence, 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 and Other disorder of impulse control F63.89 [facility] [id number] [place] [address] 60059- 5617 Mar, Unspecified episodic mood disorder F39 [facility] [id number] [place] [address] 02060- 7425 Mar, Gastroesophageal reflux disease, esophagitis presence not specified K21.9 [facility] [id number] [place] [address] 33790- 9375 Mar, Arthritis M19.90 and Unspecified episodic mood disorder F39 [facility] [address] [place] [address]- 7578 Feb, [facility] [id number] [place] [address] 09313- 3900 Feb, [facility] [id number] [place] [address] 18873- 2302 Feb, [facility] [id number] [place] [address] 95952- 1579 Feb, Arthritis M19.90 [place] [address] 52624- 2885 Feb, Non-pressure chronic ulcer of right calf, 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 ; Unspecified episodic mood disorder F39 and Left hip pain M25.552 [place] [id number] [place] [address] 40201- 0063 Feb, [place] [address] 28169- 9319 Feb, [place] [id number] [place] [address] 87837- 5510 Jan, Arthritis M19.90 [place] [id number] [place] [address] 71782- 8720 Jan, Left hip pain M25.552 and Non-pressure chronic ulcer of right calf, 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 [place] [id number] [place] [address] 91481- 3897 Jan, Chronic hepatitis C without hepatic coma B18.2 [place] [id number] [place] [address] 05761- 1597 Jan, Encounter for immunization Z23 ; Venous insufficiency ( chronic) (peripheral) I87.2 ; Non-pressure chronic ulcer of unspecified calf limited to breakdown of skin L97.201 and Gastroesophageal reflux disease, esophagitis presence not specified K21.9 [place] [id number] [place] [address] 73214- 0174 Jan, [facility] [address], [place] [address]- 6845 Jan, Chronic hepatitis C without hepatic coma B18.2 and Encounter for immunization Z23 [facility] [id number] [place] [address] 03335- 3279 Jan, Arthritis M19.90 [facility] [id number] [place] [address] 72281- 4080 Jan, [facility] [id number] [place] [address] 49498- 1652 Dec, [facility] [id number] [place] [address] 55826- 3902 Dec, Unspecified episodic mood disorder F39 [facility] [id number] [place] [address] 03791- 1442 Dec, Arthritis M19.90 [facility] [id number] [place] [address] 92744- 2722 Dec, Arthritis M19.90 [facility] [id number] [place] [address] 64160- 7113 Nov, [facility] [id number] [place] [address] 07918- 0665 Nov, [facility] [id number] [place] [address] 86103- 0922 Nov, Other psychoactive substance dependence, 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 ; 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, 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 and Chronic hepatitis C without hepatic coma B18.2 [facility] [id number] [place] [address] 56097- 2882 Nov, Arthritis M19.90 [facility] [id number] [place] [address] 24982 -8731 Oct, Partial thickness burn of abdomen, initial encounter T21.22XA [facility] [id number] [place] [address] [place] [address]- 1170 Oct, [facility] [address], [place] [address]- 6885 Sep, Arthritis M19.90 [facility] [address], [place] [address]- 2195 Sep, [facility] [id number] [place] [address] 34335- 0523 Sep, [facility] [id number] [place] [address] 00123- 4880 Sep, Unspecified episodic mood disorder F39 ; Chronic hepatitis C without hepatic coma B18.2 and Left hip pain M25.552 [facility] [id number] [place] [address] 97081- 8943 Sep, Arthritis M19.90 and Left hip pain M25.552 [facility] [id number] [place] [address] 03202- 1182 Aug, [facility] [id number] [place] [address] 72138- 5722 Aug, [facility] [id number] [place] [address] 95006- 2340 Aug, Chronic hepatitis C without hepatic coma B18.2 [facility] [address], [place] [address]- 1298 Aug, [facility] [id number] [place] [address] 39901- 2006 Aug, Chronic hepatitis C without hepatic coma B18.2 [facility] [id number] [place] [address] 02270- 4077 Aug, 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, 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 [facility] [address], [place] [address]- 7636 Aug, [facility] [id number] [place] [address] 57218- 6355 Aug, Chronic hepatitis C without hepatic coma B18.2 and Hypertension I10 [facility] [id number] [place] [address] 50836- 5266 Jul, [facility] [id number] [place] [address] 47291- 9934 June, [facility] [address] 39792- 1784 Apr, Fibromyalgia M79.7 ; Left hip pain M25.552 and Decubitus ulcer of sacral region, stage 1 L89.151 [facility] [address] 58909- 0228 Apr, [facility] [id number] [place] [address] 27882- 6124 Apr, [facility] [address] 36162- 9028 Feb, [facility] [id number] [place] [address] 03215- 0276 Dec, Anxiety F41.9 ; Combined drug dependence excluding opioids, 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 and Unspecified episodic mood disorder F39 [facility] [id number] [place] [address] 87479- 4744 Dec, [facility] [id number] [place] [address] 32578- 4698 Nov, [facility] [id number] [place] [address] 93090- 1540 Nov, [facility] [id number] [place] [address] 59550- 6850 10 Nov, 2015 Other disorder of impulse control F63.89 and Anxiety F41.9 [facility] [id number] [place] [address] 77038- 8993 Oct, [facility] [id number] [place] [address] 29027 -4711 14 Oct, 2015 Open wound of left thigh, initial encounter S71.102A [facility] [id number] [place] [address] 41336- 5686 12 Oct, 2015 [facility] [address], [place] [address] 2546 Sep, Unspecified episodic mood disorder F39 ; Other disorder of impulse control 312.39 ; Combined drug dependence excluding opioids, 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 and Anxiety F41.9 [facility] [address], [place] [address]- 6198 Sep, Other disorder of impulse control 312.39 ; Combined drug dependence excluding opioids, 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 ; Anxiety F41.9 and Unspecified episodic mood disorder F39 [facility] [address], [place] [address]- 0707 Sep, Other chronic pain G89.29 [facility] [id number] [place] [address] 32424- 4526 Sep, [facility] [id number] [place] [address] 08171- 9006 Sep, [facility] [address], [place] [address]- 4996 Aug, [facility] [address], [place] [address]- 8076 Aug, [facility] [address], [place] [address] 2546 Aug, [facility] [address], [place] [address] 2546 Jul, [facility] [id number] [place] [address] 55557 2546 Jul, [facility] [address], [place] [address]- 6019 Jul, [facility] [id number] [place] [address] 96092- 9157 17 Jul, 2015 Arthritis M19.90 ; Chronic hepatitis C without hepatic coma B18.2 and Left hip pain M25.552 [facility] [id number] [place] [address] 32953- 9245 Jul, Left knee pain M25.562 [facility] [id number] [place] [address] 71373- 4210 Jul, Combined drug dependence excluding opioids, 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 ; Anxiety F41.9 ; Other disorder of impulse control 312.39 and Unspecified episodic mood disorder F39 [facility] [id number] [place] [address] 69117- 3241 Jul, Left knee pain M25.562 [facility] [id number] [place] [address] 00149- 7875 Jul, Left knee pain M25.562 and Left hip pain M25.552 [facility] [id number] [place] [address] 76723- 7541 Jul, [facility] [id number] [place] [address] 81147- 7346 June, [facility] [id number] [place] [address] 95565- 9014 June, Combinations of drug dependence excluding opioid type drug, unspecified abuse 304.80 ; Other disorder of impulse control 312.39 ; Unspecified episodic mood disorder F39 and Anxiety F41.9 [facility] [address] [place] [address] 03183- 3756 June, Other fatigue R53.83 ; Headache R51 and Left knee pain M25.562 [facility] [address] [place] [address] 75795- 8785 June, Unspecified episodic mood disorder F39 ; Combinations of drug dependence excluding opioid type drug, unspecified abuse 304.80 ; Other disorder of impulse control 312.39 and Anxiety F41.9 [facility] [address], [place] [address]- 7203 June, Anxiety F41.9 [facility] [id number] [place] [address] 30902- 0936 June, Pain in left knee M25.562 [facility] [address] [place] [address] 36420- 7836 June, Anxiety F41.9 and Combinations of drug dependence excluding opioid type drug, unspecified abuse 304.80 [facility] [id number] [place] [address] 35459- 1500 June, Unspecified episodic mood disorder 296.90 ; Combinations of drug dependence excluding opioid type drug, unspecified abuse 304.80 and Other disorder of impulse control 312.39 [facility] [id number] [place] [address] 12227- 9445 June, Anxiety F41.9 and Unspecified episodic mood disorder 296.90 [facility] [address] [place] [address] 33969- 0382 May, Arthritis M19.90 [facility] [id number] [place] [address] 06306 2546 May, Arthritis M19.90 [facility] [address], [place] [address]- 4895 May, Anxiety F41.9 ; Combinations of drug dependence excluding opioid type drug, unspecified abuse 304.80 and Other disorder of impulse control 312.39 [facility] [address], [place] [address]- 9476 May, Left knee pain M25.562 [facility] [id number] [place] [address] 47589- 1576 May, Arthritis M19.90 [facility] [id number] [place] [address] 14878- 3302 May, [facility] [id number] [place] [address] 71107- 5266 May, Anxiety F41.9 ; Unspecified episodic mood disorder 296.90 ; Combinations of drug dependence excluding opioid type drug, unspecified abuse 304.80 and Other disorder of impulse control 312.39 [place] [id number] [place] [address] 50569- 8072 May, Left knee pain M25.562 [place] [address] 95364- 7646 May, Left knee pain M25.562 ; Combinations of drug dependence excluding opioid type drug, unspecified abuse 304.80 ; Other disorder of impulse control 312.39 ; Fibromyalgia M79.7 ; Hypertension I10 ; Unspecified episodic mood disorder 296.90 and Left hip pain M25.552 [place] [address] 80224- 4083 May, Unspecified episodic mood disorder 296.90 ; Other disorder of impulse control 312.39 ; Combinations of drug dependence excluding opioid type drug, unspecified abuse 304.80 and Anxiety F41.9 [place] [id number] [place] [address] 18117- 3776 May, Left knee pain M25.562 ; Combinations of drug dependence excluding opioid type drug, unspecified abuse 304.80 ; Other disorder of impulse control 312.39 ; Fibromyalgia M79.7 ; Hypertension I10 ; Unspecified episodic mood disorder 296.90 and Left hip pain M25.552 [place] [id number] [place] [address] 57821- 4472 May, Anxiety F41.9 ; Unspecified episodic mood disorder 296.90 ; Other disorder of impulse control 312.39 and Combinations of drug dependence excluding opioid type drug, unspecified abuse 304.80 [facility] [id number] [place] [phone] Apr, 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 and 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, implants and grafts, initial encounter T84.82XA [facility] [facility] [address] [place] [address] 28 Apr, 2015 Anxiety F41.9 ; Unspecified episodic mood disorder 296.90 ; Combinations of drug dependence excluding opioid type drug, unspecified abuse 304.80 and Other disorder of impulse control 312.39 [facility] [id number] [place] [phone] Apr, Arthritis M19.90 [facility] [id number] [place] [phone] 21 Apr, 2015 Anxiety F41.9 ; Unspecified episodic mood disorder 296.90 ; Combinations of drug dependence excluding opioid type drug, unspecified abuse 304.80 and Other disorder of impulse control 312.39 [facility] [id number] [place] [address] 26566- 7766 17 Apr, 2015 Arthritis M19.90 [facility] [id number] [place] [address] 51110- 1371 15 Apr, 2015 [facility] [id number] [place] [address] 97821- 5281 15 Apr, 2015 [facility] [id number] [place] [address] 72378- 2081 14 Apr, 2015 Unspecified episodic mood disorder 296.90 ; Combinations of drug dependence excluding opioid type drug, unspecified abuse 304.80 ; Other disorder of impulse control 312.39 and Anxiety F41.9 [facility] [id number] [place] [address] 38781 -9761 11 Apr, 2015 Left knee pain M25.562 [facility] [id number] [place] [address] 68058- 6132 Apr, [facility] [id number] [place] [address] 78959- 2118 29 Mar, 2015 Unspecified episodic mood disorder 296.90 ; Anxiety F41.9 ; Other disorder of impulse control 312.39 and Combinations of drug dependence excluding opioid type drug, unspecified abuse 304.80 [facility] [id number] [place] [address] 50249- 5449 Mar, Hyperpigmentation L81.9 [id number] [place] [address] 71518- 1588 Mar, Arthritis M19.90 and Anxiety F41.9 [place] [id number] [place] [address] 93429- 5239 Mar, Unspecified episodic mood disorder F39 ; Combined drug dependence excluding opioids, 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 ; Other disorder of impulse control F63.89 and Anxiety F41.9 [id number] [place] [address] 11706- 9794 12 Mar, 2015 Well woman exam Z01.419 ; Other fatigue R53.83 ; Hot flashes N95.1 ; Depression, unspecified depression type F32.9 and Body mass index (BMI) of 23.0-23.9 in adult Z68.23 [address] [id number] [place] [address] 46435- 9096 11 Mar, 2015 Unspecified episodic mood disorder 296.90 ; Other disorder of impulse control 312.39 and Anxiety F41.9 [id number] [place] [address] 56978- 1744 11 Mar, 2015 Well woman exam Z01.419 [...] of breast Z12.39 and Limited mobility Z74.09 [address] [id number] [place] [address] Mar, [facility] [id number] [place] [address] 85555- 9532 Mar, [facility] [address] 28324- 1741 Mar, [facility] [id number] [place] [address] 99095- 2006 Mar, Other specified complication of internal orthopedic prosthetic devices, implants and grafts, initial encounter T84.89XA ; Fibromyalgia M79.7 ; Hypertension I10 ; Anemia D64.9 ; Insomnia G47.00 ; Anxiety F41.9 ; Arthritis M19.90 and Migraine G43.909 [facility] [id number] [place] [address] 81300- 3678 Mar, [facility] [id number] [place] [address] 01449- 8242 Feb, [facility] [id number] [place] [address] 78600- 5548 Feb, Arthritis M19.90 and Anxiety F41.9 [facility] [id number] [place] [address] 21053- 2784 Feb, [facility] [id number] [place] [address] 63671- 0122 Feb, [facility] [id number] [place] [address] 82372- 5860 Feb, [facility] [id number] [place] [address] 37389- 7021 Feb, [facility] [id number] [place] [address] 83388- 7653 Feb, Anxiety F41.9 [facility] [id number] [place] [address] 22831- 4879 Feb, [facility] [address] 03382- 7989 Feb, [facility] [address] [address]- 8873 Feb, 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 and Fibromyalgia M79.7 [facility] [address] [address]- 0146 Feb, [facility] [id number] [place] [address] 11858- 5752 Jan, [facility] [address] [facility] [id number], [place] [address]- 7957 Jan, [facility] [id number] [place] [address] 00908- 8256 Jan, [facility] [address] [address]- 8977 Jan, [facility] [id number] [address]- 5024 Jan, [facility] [address] [address]- 2311 Jan, [facility] [address], [place] [address]- 8025 Jan, [facility] [address] [address]- 0068 Jan, [facility] [address] [address]- 6528 Dec, [facility] [id number] [address]- 1610 Dec, Left knee pain M25.562 [facility] [address], [place] [address]- 5116 Dec, Left knee pain M25.562 [facility] [address] [address]- 4228 Dec, Fibromyalgia M79.7 ; Hypertension I10 and Arthritis M19.90 [facility] [address] [id number] [place] [address]- 4338 Dec, [facility] [address] [facility] [id number] [place] [address]- 6351 Dec, [facility] [address] [address]- 9695 Dec, [facility] [address] [facility] [id number], [place] [address]- 4030 Dec, [facility] [address] [facility] [id number] [place] [address]- 4306 Nov, [facility] [id number] [place] [address], [place] [address]- 2005 Nov, [facility] [address] [address]- 2347 Nov, [facility] [id number] [address]- 5022 Nov, Hypertension I10 [facility] [address] [facility] [id number] [place] [address]- 8829 23 Oct, 2014 [facility] [id number] [address]- 6161 17 Oct, 2014 [facility] [address], [place] [address]- 8701 04 Oct, 2014 [facility] [place] [facility] [id number] [address]- 0619 04 Oct, 2014 [facility] [place] [facility] [id number] [address]- 5008 03 Oct, 2014 [facility] [place] [facility] [id number] [address]- 5026 Sep, [facility] [place] [facility] [address], [place] [address]- 2483 Sep, [facility] [place] [facility] [address], [place] [address]- 7134 Sep, Hip pain associated with recalled total hip arthroplasty hardware 996.77 [facility] [place] [facility] [address] [id number] [place] [address]- 2694 Sep, [facility] [place] [facility] [address] [id number] [place] [address]- 0223 Sep, [facility] [place] [facility] [address] [id number] [place] [address]- 7079 Sep, [facility] [place] [facility] [address] [id number] [place] [address]- 1573 Aug, [facility] [place] [facility] [address] [id number], [place] [address]- 5820 Jul, [facility] [place] [facility] [address] [facility] [id number] [place] [address]- 4552 June, [facility] [place] [facility] [address] [id number], [place] [address]- 7306 June, [facility] [place] [facility] [address] [id number], [place] [address]- 6760 June, [facility] [place] [facility] [address] [facility] [id number], [place] [address]- 0512 June, [facility] [place] [facility] [address] [facility] [id number], [place] [address]- 6158 June, [facility] [place] [facility] [address] [id number], [place] [address]- 2691 June, [facility] [place] [facility] [address] [id number], [place] [address]- 0792 May, [facility] [place] [facility] [address] [id number], [place] [address]- 5283 May, [facility] [place] [facility] [address] [facility] [id number], [place] [address]- 3107 May, [facility] [place] [facility] [address] [id number], [place] [address]- 8149 30 Apr, 2014 [facility] [place] [facility] [address] [id number] [place] [address]- 6835 30 Apr, 2014 [facility] [place] [facility] [address] [id number] [place] [address]- 2246 19 Apr, 2014 [facility] [place] [facility] [address] [facility] [id number] [place] [address]- 6924 19 Apr, 2014 [facility] [place] [facility] [address] [id number] [place] [address]- 8768 13 Apr, 2014 [facility] [place] [facility] [address] [id number] [place] [address]- 0055 13 Apr, 2014 [facility] [place] [facility] [address] [facility] [id number] [place] [address]- 8228 Apr, [facility] [place] [facility] [address] [facility] [id number] [place] [address]- 2292 Apr, [facility] [place] [facility] [address] [facility] [id number] [place] [address]- 9535 10 Apr, 2014 [facility] [place] [facility] [address] [facility] [id number] [place] [address]- 5559 05 Apr, 2014 [facility] [place] [facility] [address] [facility] [id number] [place] [address]- 1487 05 Apr, 2014 [facility] [place] [facility] [address] [facility] [id number] [place] [address]- 6981 Mar, 2014 [facility] [place] [facility] [address] [facility] [id number] [place] [address]- 1942 Mar, 2014 [facility] [place] [facility] [address] [id number] [place] [address]- 6841 16 Mar, 2014 [facility] [place] [facility] [address] [facility] [id number] [place] [address]- 4666 16 Mar, 2014 [facility] [place] [facility] [address] [facility] [id number], [place] [address]- 0368 10 Mar, 2014 [facility] [place] [facility] [address] [id number] [place] [address]- 4571 Mar, [facility] [place] [facility] [address] [id number] [place] [address]- 2174 Feb, [facility] [place] [facility] [address] [id number] [place] [address]- 2290 Feb, [facility] [place] [facility] [address] [id number] [place] [address]- 4621 Feb, [facility] [place] [facility] [address] [id number] [place] [address]- 0929 Feb, [facility] [place] [facility] [address] [id number] [place] [address]- 8210 Jan, [facility] [place] [facility] [address] [id number] [place] [address]- 6660 Jan, [facility] [place] [facility] [address] [id number] [place] [address]- 0857 Jan, [facility] [place] [facility] [address] [id number] [place] [address]- 4309 Jan, [facility] [place] [facility] [address] [id number] [place] [address]- 3576 Dec, [facility] [place] [facility] [address] [id number] [place] [address]- 5059 Dec, [facility] [place] [facility] [address] [id number], [place] [address]- 4165 Dec, [facility] [place] [facility] [address] [id number] [place] [address]- 4813 Dec, [facility] [place] [facility] [address] [id number] [place] [address]- 6275 Dec, [facility] [place] [facility] [address] [id number] [place] [address]- 9297 Dec, [facility] [place] [facility] [address] [id number], [place] [address]- 7655 Dec, [facility] [place] [facility] [address] [id number] [place] [address]- 4362 Dec, [facility] [place] [facility] [address] [id number] [place] [address]- 9193 10 Dec, 2013 [facility] [place] [facility] [address] [id number] [place] [address]- 0136 Dec, [facility] [place] [facility] [address] [id number] [place] [address]- 1380 Dec, [facility] [place] [facility] [address] [id number] [place] [address]- 7497 31 Nov, 2013 [facility] [place] [facility] [address] [id number] [place] [address]- 0591 28 Nov, 2013 [facility] [place] [facility] [address] [id number] [place] [address]- 5611 28 Nov, 2013 [facility] [place] [facility] [address] [id number] [place] [address]- 9946 17 Nov, 2013 [facility] [place] [facility] [address] [id number] [place] [address]- 4707 17 Nov, 2013 [facility] [place] [facility] [address] [id number] [place] [address]- 1623 15 Nov, 2013 [facility] [place] [facility] [address] [id number], [place] [address]- 3564 15 Nov, 2013 [facility] [place] [facility] [address] [id number], [place] [address]- 1189 15 Nov, 2013 [facility] [place] [facility] [address] [id number] [place] [address]- 9774 15 Nov, 2013 [facility] [place] [facility] [address] [id number], [place] [address]- 9794 14 Nov, 2013 [facility] [place] [facility] [address] [id number] [place] [address]- 5317 14 Nov, 2013 [facility] [place] [facility] [address] [id number] [place] [address]- 7623 14 Nov, 2013 [facility] [place] [facility] [address] [id number] [place] [address]- 6489 14 Nov, 2013 [facility] [place] [facility] [address] [id number] [place] [address]- 5666 13 Nov, 2013 [facility] [place] [facility] [address] [id number] [place] [address]- 3103 13 Nov, 2013 [facility] [place] [facility] [address] [id number] [place] [address]- 0354 11 Nov, 2013 [facility] [place] [facility] [address] [id number] [place] [address]- 6382 11 Nov, 2013 [facility] [place] [facility] [address] [id number] [place] [address]- 6108 07 Nov, 2013 [facility] [place] [facility] [address] [id number] [place] [address]- 4425 07 Nov, 2013 [facility] [place] [facility] [address] [id number] [place] [address]- 3217 07 Nov, 2013 [facility] [place] [facility] [address] [id number] [place] [address]- 8953 07 Nov, 2013 [facility] [place] [facility] [address] [id number] [place] [address]- 5232 30 Oct, 2013 [facility] [place] [facility] [address] [id number] [place] [address]- 9026 30 Sep, 2013 [facility] [place] [facility] [address] [id number] [place] [address]- 7930 26 Sep, 2013 [facility] [place] [facility] [address] [id number] [place] [address]- 3226 26 Oct, 2013 [facility] [place] [facility] [address] [id number] [place] [address]- 2249 22 Oct, 2013 [facility] [place] [facility] [address] [id number] [place] [address]- 7841 Oct, [facility] [place] [facility] [address] [id number] [place] [address]- 5810 18 Oct, 2013 [facility] [place] [facility] [address] [id number] [place] [address]- 4999 Oct, 2013 [facility] [place] [facility] [address] [id number] [place] [address]- 9178 Oct, [facility] [place] [facility] [address] [id number] [place] [address]- 5775 Oct, 2013 [facility] [place] [facility] [address] [id number] [place] [address]- 9885 Oct, [facility] [place] [facility] [address] [id number] [place] [address]- 2074 Oct, [facility] [place] [facility] [address] [id number] [place] [address]- 8890 Oct, [facility] [place] [facility] [address] [id number] [place] [address]- 3744 Oct, [facility] [place] [facility] [address] [id number] [place] [address]- 1115 Sep, [facility] [place] [facility] [address] [id number] [place] [address]- 9253 Sep, [facility] [place] [facility] [address] [id number] [place] [address]- 8827 Sep, [facility] [place] [facility] [address] [id number] [place] [address]- 4009 Sep, [facility] [place] [facility] [address] [id number] [place] [address]- 8762 Sep, [facility] [place] [facility] [address] [id number] [place] [address]- 5254 Sep, [facility] [place] [facility] [address] [id number] [place] [address]- 2245 Sep, [facility] [place] [facility] [address] [id number] [place] [address]- 5070 Sep, [facility] [place] [facility] [address] [id number] [place] [address]- 3275 Sep, [facility] [place] [facility] [address] [id number] [place] [address]- 6222 Sep, [facility] [place] [facility] [address] [id number] [place] [address]- 1145 Sep, [facility] [place] [facility] [address] [id number] [place] [address]- 6632 Sep, [facility] [place] [facility] [address] [id number] [place] [address]- 3894 Sep, [facility] [place] [facility] [address] [id number] [place] [address]- 2939 Sep, [facility] [place] [facility] [address] [id number] [place] [address]- 4423 Sep, [facility] [place] [facility] [address] [id number] [place] [address]- 6915 Sep, [facility] [place] [facility] [address] [id number] [place] [address]- 6292 Sep, [facility] [place] [facility] [address] [id number] [place] [address]- 7411 Sep, [facility] [place] [facility] [address] [id number] [place] [address]- 3347 Aug, [facility] [place] [facility] [address] [id number] [place] [address]- 0216 Aug, [facility] [place] [facility] [address] [id number] [place] [address]- 3920 Aug, [facility] [place] [facility] [address] [id number] [place] [address]- 2840 Aug, [facility] [place] [facility] [address] [id number] [place] [address]- 3555 Aug, [facility] [place] [facility] [address] [id number] [place] [address]- 3089 Aug, [facility] [place] [facility] [address] [id number] [place] [address]- 1436 Jul, [facility] [place] [facility] [address] [id number] [place] [address]- 5883 Jul, [facility] [place] [facility] [address] [id number] [place] [address]- 5490 Jul, [facility] [place] [facility] [address] [id number] [place] [address]- 4273 Jul, [facility] [place] [facility] [address] [id number] [place] [address]- 3929 June, [facility] [place] [facility] [address] [id number] [place] [address]- 9286 June, [facility] [place] [facility] [address] [id number] [place] [address]- 5333 June, [facility] [place] [facility] [address] [id number] [place] [address]- 9992 June, [facility] [place] [facility] [address] [id number] [place] [address]- 2893 June, [facility] [place] [facility] [address] [id number] [place] [address]- 7436 June, [facility] [place] [facility] [address] [id number] [place] [address]- 2846 June, [facility] [place] [facility] [address] [id number] [place] [address]- 0563 May, [facility] [place] [facility] [address] [id number] [place] [address] May, [facility] [place] [facility] [address] [id number] [place] [address] May, [facility] [place] [facility] [address] [id number] [place] [address] 28 May, 2013 [facility] [place] [facility] [address] [id number] [place] [address] May, [facility] [place] [facility] [address] [id number] [place] [address] 17 May, 2013 [facility] [place] [facility] [address] [id number] [place] [address] 31 Apr, 2013 [facility] [place] [facility] [address] [id number] [place] [address] 31 Apr, 2013 [facility] [place] [facility] [address] [id number] [place] [address] 28 Apr, 2013 [facility] [place] [facility] [address] [id number] [place] [address] 28 Apr, 2013 [facility] [place] [facility] [address] [id number] [place] [address] 14 Apr, 2013 [facility] [place] [facility] [address] [id number] [place] [address] 14 Apr, 2013 [facility] [place] [facility] [address] [id number] [place] [address] Apr, [facility] [place] [facility] [address] [id number] [place] [address] 12 Apr, 2013 [facility] [place] [facility] [address] [id number] [place] [address]73 10 Apr, 2013 [facility] [place] [facility] [address] [id number] [place] [address] 10 Apr, 2013 [facility] [place] [facility] [address] [id number] [place] [address] 04 Apr, 2013 [facility] [place] [facility] [address] [id number] [place] [address] 04 Apr, 2013 [facility] [place] [facility] [address] [id number] [place] [address] 03 Apr, 2013 [facility] [place] [facility] [address] [id number] [place] [address] Apr, [facility] [address] [id number] [place] [address] Mar, [facility] [place] [facility] [address] [id number] [place] [address] Mar, [facility] [place] [facility] [address] [id number] [place] [address] Mar, [facility] [place] [facility] [address] [id number] [place] [address] Feb, [facility] [place] [facility] [address] [id number] [place] [address] Feb, [facility] [place] [facility] [address] [id number] [place] [address] Feb, [facility] [place] [facility] [address] [id number] [place] [address] Feb, [facility] [address] [id number] [place] [address] Feb, [facility] [place] [facility] [address] [id number] [place] [address] Feb, [facility] [place] [facility] [address] [id number] [place] [address] Feb, [facility] [place] [facility] [address] [id number] [place] [address] Feb, [facility] [place] [facility] [address] [id number] [place] [address] Feb, [facility] [place] [facility] [address] [id number] [place] [address] Feb, [facility] [place] [facility] [address] [id number] [place] [address] Jan, [facility] [place] [facility] [address] [id number] [place] [address]- [address] Jan, [facility] [address] [id number] [place] [address] Jan, [facility] [place] [facility] [address] [id number] [place] [address] Jan, [facility] [address] [id number] [place] [address] Jan, [facility] [place] [facility] [address] [id number] [place] [address] Jan, [facility] [address] [id number] [place] [address] Jan, [facility] [place] [facility] [address] [id number] [place] [address]- [address] Jan, [facility] [address] [id number] [place] [address] Jan, [facility] [address] [id number] [place] [address]- [address] Jan, [facility] [place] [facility] [address] [id number] [place] [address]- [address] Jan, [facility] [place] [facility] [address] [id number] [place] [address]- [address] Jan, [facility] [place] [facility] [address] [id number] [place] [address]- [address] 16 Jan, 2013 [facility] [place] [facility] [address] [id number] [place] [address]- [address] Jan, [facility] [place] [facility] [address] [id number] [place] [address] Jan, [facility] [place] [facility] [address] [id number] [place] [address] Jan, [facility] [place] [facility] [address] [id number] [place] [address] Jan, [facility] [place] [facility] [address] [id number], [place] [address] 05 Jan, 2013 [facility] [address] [id number] [place] [address] Jan, [facility] [place] [facility] [address] [id number], [place] [address] Jan, [facility] [address] [id number], [place] [address] Jan, [facility] [place] [facility] [address] [id number], [place] [address] Dec, [facility] [place] [facility] [address] [id number] [place] [address] Dec, [facility] [place] [facility] [address] [id number], [place] [address] Dec, [facility] [address] [id number], [place] [address] Dec, [facility] [place] [facility] [address] [id number], [place] [address] Dec, [facility] [place] [facility] [address] [id number], [place] [address] Dec, [facility] [place] [facility] [address] [facility] [id number] [address] Dec, [facility] [place] [facility] [address] [id number], [place] [address] Dec, [facility] [place] [facility] [address] [id number], [place] [address] Dec, [facility] [place] [facility] [address] [id number], [place] [address] Dec, [facility] [place] [facility] [address] [facility] [id number], [place] [address] Nov, [facility] [place] [facility] [address] [facility] [id number], [place] [address] Nov, [facility] [place] [facility] [address] [id number] [place] [address] 18 Nov, 2012 [facility] [place] [facility] [address] [id number] [place] [address] 69[address] 18 Nov, 2012 [facility] [place] [facility] [address] [id number] [place] [address] 2547 Nov, [facility] [place] [facility] [address] [id number] [place] [address] 2916 Nov, 2012 [facility] [place] [facility] [address] [id number] [place] [address] 5[address] Nov, [facility] [place] [facility] [address] [id number] [place] [address] 4440 Nov, [facility] [place] [facility] [address] [id number] [place] [address]- 9041 10 Nov, 2012 [facility] [place] [facility] [address] [id number] [place] [address]- 0187 03 Nov, 2012 [facility] [place] [facility] [address] [id number] [place] [address] 2545 26 Oct, 2012 [facility] [place] [facility] [address] [id number] [place] [address] 2545 26 Oct, 2012 [facility] [place] [facility] [address] [id number] [place] [address] 2542 26 Oct, 2012 [facility] [place] [facility] [address] [id number] [place] [address]- 2546 25 Oct, 2012 [facility] [place] [facility] [address] [id number] [place] [address] 2547 06 Oct, 2012 [facility] [place] [facility] [address] [id number] [place] [address] 2546 08 Sep, 2012 [facility] [place] [facility] [address] [id number] [place] [address] 254 Sep, [facility] [place] [facility] [address] [id number] [place] [address]- 5167 Aug, [facility] [address] [id number] [place] [address]- 7543 Aug, [facility] [address] [id number] [place] [address]- 6833 Aug, [facility] [address] [id number] [place] [address]- 4489 Aug, [facility] [address] [id number] [place] [address]- 9737 Aug, [facility] [address] [id number] [place] [address]- 2291 Aug, [facility] [address] [id number] [place] [address]- 8092 Aug, [facility] [address] [id number] [place] [address]- 8587 Jul, [facility] [place] [facility] [address] [id number] [place] [address]- 5171 Jul, [facility] [address] [id number] [place] [address]- 8441 June, [facility] [place] [facility] [address] [id number] [place] [address]- 6227 June, [facility] [place] [facility] [address] [id number] [place] [address]- 1581 June, [facility] [place] [facility] [address] [id number] [place] [address]- 1517 June, [facility] [place] [facility] [address] [id number] [place] [address]- 9380 June, [facility] [place] [facility] [address] [id number] [place] [address]- 4972 June, [facility] [place] [facility] [address] [id number] [place] [address]- 9611 June, [facility] [place] [facility] [address] [id number] [place] [address]- [address] June, [facility] [address] [id number] [place] [address]- 1797 June, [facility] [address] [id number] [place] [address]- 5106 June, [facility] [address] [id number] [place] [address]- 5278 June, [facility] [address] [id number] [place] [address]- 7688 May, [facility] [address] [id number] [place] [address]- 0988 May, [facility] [address] [id number] [place] [address]- 1250 May, [facility] [address] [id number] [place] [address]- 0897 May, [facility] [address] [id number] [place] [address]- 4246 Apr, [facility] [address] [id number] [place] [address]- 1019 Apr, [facility] [address] [id number] [place] [address]- 6341 Apr, [facility] [address] [id number] [place] [address]- 8284 Mar, [facility] [address] [id number] [place] [address]- 1009 Mar, [facility] [address] [id number] [place] [address]- 1324 Feb, [facility] [address] [id number] [place] [address]- 5044 Feb, [facility] [address] [id number] [place] [address]- 7287 Feb, [facility] [address] [id number] [place] [address]- 9379 Feb, [facility] [place] [facility] [address] [id number] [place] [address]- 8501 16 Feb, 2012 [facility] [place] [facility] [address] [id number] [place] [address]- 8006 14 Feb, 2012 [facility] [place] [facility] [address] [id number] [place] [address]- 2465 Feb, [facility] [address] [id number] [place] [address]- 8225 Jan, [facility] [place] [facility] [address] [id number] [place] [address]- 7813 Jan, [facility] [address] [id number] [place] [address]- 3284 Jan, [facility] [address] [id number] [place] [address]- 1822 17 Jan, 2012 [facility] [place] [facility] [address] [id number] [place] [address]- 2673 17 Jan, 2012 [facility] [address] [id number] [place] [address]- 5626 Jan, [facility] [place] [facility] [address] [id number] [place] [address]- 4561 Jan, [facility] [place] [facility] [address] [id number], [place] [address] 6[address] 10 Jan, 2012 [facility] [place] [facility] [address] [id number] [place] [address]- 3684 Jan, [facility] [place] [facility] [address] [id number] [place] [address]- 1166 03 Jan, 2012 [facility] [place] [facility] [address] [id number] [place] [address]- 7473 03 Jan, 2012 [facility] [place] [facility] [address] [id number], [place] [address]- 7565 Dec, [facility] [place] [facility] [address] [id number] [place] [address]- 0807 Dec, [facility] [place] [facility] [address] [id number] [place] [address]- 3126 Dec, [facility] [place] [facility] [address] [facility] [id number] [place] [address]- 2346 Dec, [facility] [place] [facility] [address] [id number] [place] [address]- 2461 Nov, [facility] [place] [facility] [address] [id number] [place] [address]- 8464 Nov, [facility] [place] [facility] [address] [id number] [place] [address]- 3965 Nov, [facility] [place] [facility] [address] [id number] [address]- 1833 27 Oct, 2011 [facility] [place] [facility] [address] [id number] [place] [address]- 1158 24 Oct, 2011 [facility] [place] [facility] [address] [facility] [id number] [place] [address]- 4823 21 Oct, 2011 [facility] [place] [facility] [address] [facility] [id number] [place] [address]- 4182 10 Oct, 2011 [facility] [place] [facility] [address] [facility] [id number] [place] [address]- 2040 07 Oct, 2011 [facility] [place] [facility] [address] [id number], [place] [address]- 3911 Oct, [facility] [place] [facility] [address] [id number] [place] [address]- 4619 Oct, [facility] [place] [facility] [address] [facility] [id number] [place] [address]- 1296 Sep, [facility] [place] [facility] [address] [facility] [id number] [place] [address]- 3566 Sep, [facility] [place] [facility] [address] [id number] [place] [address]- 2160 Sep, [facility] [place] [facility] [address] [id number] [place] [address]- 1016 Sep, [facility] [place] [facility] [address] [id number] [place] [address] 2546 Sep, [facility] [place] [facility] [address] [id number] [place] [address]- 2776 Aug, [facility] [place] [facility] [address] [id number] [place] [address]- 5268 Aug, [facility] [place] [facility] [address] [id number] [place] [address]- 0986 Aug, [facility] [place] [facility] [address] [id number] [place] [address]- 8802 16 Aug, 2011 [facility] [place] [facility] [address] [id number] [place] [address]- 0831 Aug, [facility] [place] [facility] [address] [id number] [place] [address]- 4141 Aug, [facility] [place] [facility] [address] [id number] [place] [address]- 9493 Aug, [facility] [place] [facility] [address] [id number] [place] [address]- 2640 Jul, [facility] [place] [facility] [address] [id number] [place] [address]- 5614 Jul, [facility] [place] [facility] [address] [id number] [place] [address]- 6427 Jul, [facility] [place] [facility] [address] [id number] [place] [address]- 3696 Jul, [facility] [place] [facility] [address] [id number] [place] [address]- 3676 Jul, [facility] [place] [facility] [address] [id number] [place] [address]- 1410 Jul, [facility] [place] [facility] [address] [id number] [place] [address]- 2611 Jul, [facility] [place] [facility] [address] [id number] [place] [address]- 4711 Jul, [facility] [place] [facility] [address] [id number] [place] [address]- 7581 Jul, [facility] [place] [facility] [address] [id number] [place] [address]- 4931 June, [facility] [place] [facility] [address] [id number] [place] [address]- 0909 June, [facility] [place] [facility] [address] [id number] [place] [address]- 5437 June, [facility] [place] [facility] [address] [id number] [place] [address]- 4350 June, [facility] [place] [facility] [address] [id number] [place] [address]- 8183 June, [facility] [place] [facility] [address] [id number] [place] [address]- 5672 June, [facility] [place] [facility] [address] [id number] [place] [address]- 3237 June, [facility] [place] [facility] [address] [id number] [place] [address]- 8459 June, [facility] [place] [facility] [address] [id number] [place] [address]- 3298 May, [facility] [place] [facility] [address] [id number] [place] [address]- 9296 May, [facility] [place] [facility] [address] [id number] [place] [address]- 5679 May, [facility] [place] [facility] [address] [id number] [place] [address]- 6497 May, [facility] [place] [facility] [address] [id number] [place] [address]- 1494 16 May, 2011 [facility] [address] [id number] [place] [address]- 0216 16 May, 2011 [facility] [place] [facility] [address] [id number] [place] [address]- 4426 02 May, 2011 [facility] [place] [facility] [address] [id number] [place] [address]- 5646 27 Apr, 2011 [facility] [place] [facility] [address] [id number] [place] [address]- 4984 22 Apr, 2011 [facility] [place] [facility] [address] [id number] [place] [address]- 3062 Apr, [facility] [place] [facility] [address] [id number] [place] [address]- 2633 19 Apr, 2011 [facility] [place] [facility] [address] [id number] [place] [address]- 1031 Apr, [facility] [place] [facility] [address] [id number] [place] [address]- 9310 06 Apr, 2011 [facility] [place] [facility] [address] [id number] [place] [address]- 6685 Apr, [facility] [place] [facility] [address] [facility] [id number] [place] [address]- 6683 20 Mar, 2011 [facility] [place] [facility] [address] [id number] [place] [address]- 9656 20 Mar, 2011 [facility] [place] [facility] [address] [facility] [id number] [place] [address]- 4502 14 Mar, 2011 [facility] [place] [facility] [address] [id number] [place] [address]- 0487 13 Mar, 2011 [facility] [place] [facility] [address] [facility] [id number] [place] [address]- 6206 09 Mar, 2011 [facility] [place] [facility] [address] [facility] [id number] [place] [address]- 4574 08 Mar, [address] [facility] [address] [id number] [place] [address]- 5748 08 Mar, 2011 [facility] [address] [id number] [place] [address]- 6257 Feb, [facility] [address] [id number] [place] [address]- 4028 Feb, [facility] [address] [id number] [place] [address]- 8492 Feb, [facility] [address] [id number] [place] [address]- 9779 Feb, [facility] [address] [id number] [place] [address]- 1612 Feb, [facility] [address] [id number] [place] [address]- 0279 Feb, [facility] [address] [id number] [place] [address]- 1936 Feb, [facility] [address] [id number] [place] [address]- 5149 Feb, [facility] [address] [id number] [place] [address]- 9867 Feb, [facility] [address] [id number] [place] [address]- 2163 Feb, [facility] [address] [id number], [place] [address]- 0427 Jan, [facility] [place] [facility] [address] [id number] [place] [address]- 9652 Jan, [facility] [place] [facility] [address] [id number] [place] [address]- 0991 Jan, [facility] [place] [facility] [address] [id number] [place] [address]- 3568 Jan, [facility] [place] [facility] [address] [id number] [place] [address]- 5124 20 Jan, 2011 [facility] [place] [facility] [address] [id number] [place] [address]- 6656 20 Jan, 2011 [facility] [place] [facility] [address] [id number] [place] [address]- 2337 15 Jan, 2011 [facility] [place] [facility] [address] [id number] [place] [address]- 1815 15 Jan, 2011 [facility] [place] [facility] [address] [id number] [place] [address]- 7371 08 Jan, 2011 [facility] [place] [facility] [address] [id number] [place] [address]- 1316 Jan, [facility] [place] [facility] [address] [id number] [place] [address]- 5789 Jan, [facility] [place] [facility] [address] [id number] [place] [address]- 2308 17 Dec, 2010 [facility] [place] [facility] [address] [id number] [place] [address]- 1538 17 Dec, 2010 [facility] [place] [facility] [address] [id number] [place] [address]- 0848 17 Dec, 2010 [facility] [place] [facility] [address] [facility] [id number] [place] [address]- 2247 16 Dec, 2010 [facility] [place] [facility] [address] [id number] [place] [address]- 8029 14 Dec, 2010 [facility] [place] [facility] [address] [id number] [place] [address]- 8876 09 Dec, 2010 [facility] [place] [facility] [address] [id number] [place] [address]- 1882 08 Dec, 2010 [facility] [place] [facility] [address] [id number] [place] [address]- 6644 07 Dec, 2010 [facility] [place] [facility] [address] [facility] [id number] [place] [address]- 6559 02 Dec, 2010 [facility] [place] [facility] [address] [id number] [place] [address]- 3204 Nov, [facility] [place] [facility] [address] [id number] [place] [address]- 5360 Nov, [facility] [place] [facility] [address] [id number] [place] [address]- 3513 Nov, [facility] [place] [facility] [address] [id number] [place] [address]- 1455 Nov, [facility] [place] [facility] [address] [id number] [place] [address]- 8467 24 Nov, 2010 [facility] [place] [facility] [address] [id number] [place] [address]- 4549 Nov, [facility] [place] [facility] [address] [id number] [place] [address]- 2297 Aug, [facility] [place] [facility] [address] [id number] [place] [address]- 3342 14 Feb, 2010 [facility] [place] [facility] [address] [id number] [place] [address]- 4068 14 Jan, 2010 [facility] [place] [facility] [address] [id number] [place] [address]- 0681 Jan, [facility] [place] [facility] [address] [id number] [place] [address]- 8005 Jan, [facility] [place] [facility] [address] [id number] [place] [address]- 0875 Jan, [facility] [place] [facility] [address] [id number] [place] [address]- 2858 Jan, [facility] [place] [facility] [address] [id number] [place] [address]- 8274 Dec, [facility] [place] [facility] [address] [id number] [place] [address]- 2595 18 Dec, 2009 [facility] [place] [facility] [address] [id number] [place] [address]- 1175 Dec, [facility] [address] [facility] [id number] [place] [address]- 2546 Dec, [facility] [address] [facility] [id number], [place] [address]- 2546 Nov, [facility] [address] [facility] [id number] [place] [address]- 2546 Nov, [facility] [address] [facility] [id number], [place] [address]- 2546 Nov, IMMUNIZATIONS No Known Immunizations SOCIAL HISTORY Never Assessed REASON FOR VISIT 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), -Yasir RUCKER , PT discusses that she is interested in something to help get her weight off. PT notes she has tried a lot of things but does not seem to get the weight off -Yasir RUCKER , PT stopped her Ambilify due to paranoia as well as mood swings -Linda RUCKER PLAN OF CARE Activity Details Follow Up 3 Months Reason: VITAL SIGNS Height 68 in 2017-07-22 Weight 222 lbs 2017-07-22 Temperature 97.6 degrees Fahrenheit 2017-07-22 Heart Rate 92 bpm 2017-07-22 Respiratory Rate 20 2017-07-22 BMI 33.75 kg/m2 2017-07-22 Blood pressure systolic 128 mmHg 2017-07-22 Blood pressure diastolic 68 mmHg 2017-07-22 MEDICATIONS Medication Instructions Dosage Frequency Start Date End Date Duration Status Promethazine HCl 25 MG Orally every 12 hrs 1 tablet as needed 12h 30 Active Fentanyl 50 MCG/HR Transdermal 48 hrs 1 patch to skin June, 30 days Active Lyrica 150 MG Orally 3 times a day 1 capsule 8h 28 days Active Aspirin 81 MG Orally Once a day 1 tablet 24h 30 Active Furosemide 20 mg Orally Once a day 1 tablet 24h Active Tizanidine HCl 4 MG Orally Three times a day 1 tablet as needed 8h May, Active Pantoprazole Sodium 40 mg Orally Once a day 1 tablet 24h 30 days Active Sumatriptan Succinate 100 mg Orally Once a day 1 tablet as needed one time 24h 30 Active Klonopin 1 MG Orally 3 times a day 1 tablet 8h 30 days Active Clonidine HCl 0.1 MG Orally twice a day 1 tablet 12h 30 Active Fluoxetine HCl 40 mg Orally Once a day 2 capsule in the morning 24h 30 Active Nabumetone 500 mg Orally Twice [...]
--- OUTSIDE RECORDS SUMMARY | 2018-01-13 22:13 | XMS REPORT ---
Author Author WYATT SOTO Organization [facility], [place] Address [address] [place] [address] Care Team Providers Care Mailroom Associate Name Role Phone WYATT SOTO Unavailable PROBLEMS Type Condition ICD9-CM Code ZRZ43-AS Code Onset Dates Condition Status SNOMED Code Problem Left hip pain M25.552 Active 81155354 Problem Other chronic pain G89.29 Active 29575484 Problem Chronic hepatitis C without hepatic coma B18.2 Active 225252639 Problem Other obesity due to excess calories E66.09 Active 963432704 Problem Body mass index (BMI) of 34.0-34.9 in adult Z68.34 Active 829286846 Problem Other psychoactive substance dependence, 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 Active 5936629 Problem 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, 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 539865435 Problem Gastroesophageal reflux disease, esophagitis presence not specified K21.9 Active 382741049 Problem Venous insufficiency (chronic) (peripheral) I87.2 Active 423694842 Problem Unspecified episodic mood disorder F39 Active 90410615 Problem Hypertension I10 Active 69435892 Problem Combined drug dependence excluding opioids, 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 Active 634202085 Problem Arthritis M19.90 Active 5153599 Problem 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 Active 07205645 Problem Anxiety F41.9 Active 37249763 ALLERGIES No Information ENCOUNTERS Encounter Location Date Diagnosis [facility], [place] [address] [facility] [id number] [address] Jul, [facility], [place] [address], [place] [address] Jul, Arthritis M19.90 [facility], [place] [id number] [address] Jul, Left hip pain M25.552 ; Hypertension I10 ; Other obesity due to excess calories E66.09 and Body mass index (BMI) of 34.0-34.9 in adult Z68.34 [facility], [place] [id number] [place] [address] 46234- 4695 Jul, Unspecified episodic mood disorder F39 [facility] [place] [id number] [place] [address] 75493- 8665 June, Gastroesophageal reflux disease, esophagitis presence not specified K21.9 [facility], [place] [id number] [place] [address] 71485- 7919 June, [facility], [place] [id number] [place] [address] 92590- 1491 June, [facility], [place] [id number] [place] [address] 66074- 5574 June, Arthritis M19.90 [facility], [place] [id number] [place] [address] 75949- 0519 June, [facility] [place] [id number] [place] [address] 45575- 6876 June, [facility] [place] [id number] [place] [address] 21432- 3692 June, Unspecified episodic mood disorder F39 [facility], [place] [id number] [place] [address] 33724- 4564 May, Unspecified episodic mood disorder F39 [facility] [place] [id number] [place] [address] 93175- 7150 May, [facility] [place] [id number] [place] [address] 36926- 8608 May, Arthritis M19.90 [facility] [id number] [place] [address] 45723 -1728 May, Dysuria R30.0 ; Abscess L02.91 and Acute cystitis without hematuria N30.00 [facility] [place] [id number] [place] [address] 23812- 8796 May, Other disorder of impulse control F63.89 ; Unspecified episodic mood disorder F39 ; Combined drug dependence excluding opioids, 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 ; Anxiety F41.9 and Other psychoactive substance dependence, 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 [facility], [place] [address], [place] [address] 46[address] May, [facility] [place] [id number] [place] [address] 44988- 0409 May, Other disorder of impulse control F63.89 ; Unspecified episodic mood disorder F39 ; Combined drug dependence excluding opioids, 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 ; Other psychoactive substance dependence, 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 and Anxiety F41.9 [facility] [place] [id number] [place] [address] 85151- 5453 May, Other chronic pain G89.29 ; Left hip pain M25.552 ; Hypertension I10 ; 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, 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 and Unspecified episodic mood disorder F39 [facility], [place] [address] [place] [address] 02702- 1995 Apr, [facility] [id number] [place] [address] 39760 -2530 Apr, Neck pain M54.2 ; Left hip pain M25.552 and Fall, initial encounter W19.XXXA [facility], [place] [id number] [place] [address] 43425- 1567 Apr, Unspecified episodic mood disorder F39 ; Combined drug dependence excluding opioids, 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 ; Anxiety F41.9 ; Other psychoactive substance dependence, 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 and Other disorder of impulse control F63.89 [facility], [place] [address] [place] [address] 94231- 7082 Apr, [facility], [place] [address] [place] [address] 35758- 6508 Apr, Arthritis M19.90 and Unspecified episodic mood disorder F39 [facility], [place] [address], [place] [address] 7315 Apr, Unspecified episodic mood disorder F39 [facility] [place] [id number] [place] [address] 88360- 2846 Apr, [facility] [place] [id number] [place] [address] 43430- 1166 Apr, [facility] [place] [id number] [place] [address] 99801- 1376 Apr, Unspecified episodic mood disorder F39 ; Combined drug dependence excluding opioids, 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 ; Anxiety F41.9 ; Other psychoactive substance dependence, 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 and Other disorder of impulse control F63.89 [facility] [place] [id number] [place] [address] 97769- 3756 Mar, Unspecified episodic mood disorder F39 [place] [facility] [id number] [place] [address] 11981- 3090 Mar, Gastroesophageal reflux disease, esophagitis presence not specified K21.9 [facility] [place] [id number] [place] [address] 21707- 6844 Mar, Arthritis M19.90 and Unspecified episodic mood disorder F39 [facility], [place] [address] [place] [address] 45512- 4322 Feb, [facility] [place] [id number] [place] [address] 24501- 5361 Feb, [facility] [place] [id number] [place] [address] 59098- 4041 Feb, [facility] [place] [id number] [place] [address] 52404- 3709 Feb, Arthritis M19.90 [facility], [place] [address] [place] [address] 90067- 7061 Feb, Non-pressure chronic ulcer of right calf, 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 ; Unspecified episodic mood disorder F39 and Left hip pain M25.552 [facility] [place] [id number] [place] [address] 50728- 5722 Feb, [facility], [place] [address] 58831- 7722 Feb, [facility] [place] [address] 60555- 6128 Jan, Arthritis M19.90 [facility], [place] [address] 30990- 8755 Jan, Left hip pain M25.552 and Non-pressure chronic ulcer of right calf, 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 [place] [address] 75225- 3439 Jan, Chronic hepatitis C without hepatic coma B18.2 [place] [address] 41014- 3696 Jan, Encounter for immunization Z23 ; Venous insufficiency ( chronic) (peripheral) I87.2 ; Non-pressure chronic ulcer of unspecified calf limited to breakdown of skin L97.201 and Gastroesophageal reflux disease, esophagitis presence not specified K21.9 [facility], [place] [address] 57848- 0871 Jan, [facility], [place] [address] 22720- 0527 Jan, Chronic hepatitis C without hepatic coma B18.2 and Encounter for immunization Z23 [facility], [place] [id number] [place] [address] 39557- 2771 Jan, Arthritis M19.90 [facility], [place] [address] 94577- 4684 Jan, [facility], [place] [id number] [place] [address] 44887- 4566 Dec, [facility], [place] [address] 87133- 7575 Dec, Unspecified episodic mood disorder F39 [facility], [place] [address] [place] [address] 22784- 7371 Dec, Arthritis M19.90 [facility], [place] [id number] [place] [address] 35978- 3293 Dec, Arthritis M19.90 [facility], [place] [id number] [place] [address] 72472- 8630 Nov, [facility] [place] [id number] [place] [address] 85291- 4803 Nov, [facility], [place] [id number] [place] [address] 51587- 4024 Nov, Other psychoactive substance dependence, 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 ; 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, 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 and Chronic hepatitis C without hepatic coma B18.2 [facility], [place] [id number] [place] [address] 06979- 9461 Nov, Arthritis M19.90 [facility] [id number] [place] [address] 78100 -2481 Oct, Partial thickness burn of abdomen, initial encounter T21.22XA [facility], [place] [address] [place] [address] 10769- 1223 Oct, [facility], [place] [id number] [place] [address] 52221- 8601 Sep, Arthritis M19.90 [facility], [place] [address], [place] [address]- 2669 Sep, [facility] [place] [id number] [place] [address] 27937- 4795 Sep, [facility] [place] [id number] [place] [address] 71435- 1290 Sep, Unspecified episodic mood disorder F39 ; Chronic hepatitis C without hepatic coma B18.2 and Left hip pain M25.552 [facility] [place] [id number] [place] [address] 19991- 1429 Sep, Arthritis M19.90 and Left hip pain M25.552 [facility], [place] [id number] [place] [address] 81552- 7361 Aug, [facility] [place] [id number] [place] [address] 48916- 5221 Aug, [facility] [place] [id number] [place] [address] 77564- 4287 Aug, Chronic hepatitis C without hepatic coma B18.2 [facility], [place] [address] 62767- 9321 Aug, [facility] [place] [id number] [place] [address] 09564- 3854 Aug, Chronic hepatitis C without hepatic coma B18.2 [facility] [place] [id number] [place] [address] 25942- 9790 Aug, 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, 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 [facility] [place] [id number] [place] [address] 13786- 8283 Aug, [facility] [place] [id number] [place] [address] 46299- 1308 Aug, Chronic hepatitis C without hepatic coma B18.2 and Hypertension I10 [facility], [place] [id number] [place] [address] 18932- 1024 Jul, [facility], [place] [id number] [place] [address] 94333- 9263 June, [facility], [place] [id number] [place] [address] 38869- 1430 Apr, Fibromyalgia M79.7 ; Left hip pain M25.552 and Decubitus ulcer of sacral region, stage 1 L89.151 [facility], [place] [id number] [place] [address] 26583- 4594 Apr, [facility], [place] [address], [place] [address]- 8615 Apr, [facility], [place] [id number] [place] [address] 64951- 3745 Feb, [facility], [place] [address] [place] [address] 04491- 5328 Dec, Anxiety F41.9 ; Combined drug dependence excluding opioids, 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 and Unspecified episodic mood disorder F39 [facility], [place] [address], [place] [address]- 5757 Dec, [facility], [place] [id number] [place] [address] 89048- 8550 18 Nov, 2015 [facility] [place] [id number] [place] [address] 03433- 5503 Nov, [facility], [place] [id number] [place] [address] 27804- 7816 Nov, Other disorder of impulse control F63.89 and Anxiety F41.9 [facility], [place] [address] [place] [address] 64429- 5917 Oct, [facility] [address], [place] [address] -4454 14 Oct, 2015 Open wound of left thigh, initial encounter S71.102A [facility], [place] [address] [place] [address] 70168- 7699 Oct, [facility], [place] [address] [place] [address] 02379- 6990 Sep, Unspecified episodic mood disorder F39 ; Other disorder of impulse control 312.39 ; Combined drug dependence excluding opioids, 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 and Anxiety F41.9 [facility], [place] [address], [place] [address]- 1432 Sep, Other disorder of impulse control 312.39 ; Combined drug dependence excluding opioids, 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 ; Anxiety F41.9 and Unspecified episodic mood disorder F39 [facility], [place] [address] [place] [address] 63989- 9746 Sep, Other chronic pain G89.29 [facility], [place] [address], [place] [address]- 0548 Sep, [facility], [place] [id number] [place] [address] 64962- 6829 Sep, [facility] [place] [id number] [place] [address] 65614- 1941 Aug, [facility] [place] [id number] [place] [address] 37235- 7955 Aug, [facility] [place] [id number] [place] [address] 41391- 0775 Aug, [facility], [place] [id number] [place] [address] 69138- 6428 Jul, [facility], [place] [address] [place] [address] 07576- 5393 Jul, [facility] [place] [id number] [place] [address] 38485- 9694 Jul, [facility], [place] [address] [place] [address] 47527- 8470 Jul, Arthritis M19.90 ; Chronic hepatitis C without hepatic coma B18.2 and Left hip pain M25.552 [facility], [place] [address] [place] [address] 82492- 6459 13 Jul, 2015 Left knee pain M25.562 [facility] [place] [id number] [place] [address] 69919- 4328 Jul, Combined drug dependence excluding opioids, 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 ; Anxiety F41.9 ; Other disorder of impulse control 312.39 and Unspecified episodic mood disorder F39 [facility] [place] [address] [place] [address] 48333- 0774 13 Jul, 2015 Left knee pain M25.562 [facility] [place] [address] [place] [address] 83215- 1384 Jul, Left knee pain M25.562 and Left hip pain M25.552 [facility], [place] [address], [place] [address]- 0969 Jul, [facility] [place] [id number] [place] [address] 94290- 3879 June, [facility], [place] [address] [place] [address] 30579- 4654 June, Combinations of drug dependence excluding opioid type drug, unspecified abuse 304.80 ; Other disorder of impulse control 312.39 ; Unspecified episodic mood disorder F39 and Anxiety F41.9 [facility], [place] [address], [place] [address]- 0005 June, Other fatigue R53.83 ; Headache R51 and Left knee pain M25.562 [facility], [place] [address] [place] [address] 80463- 7986 June, Unspecified episodic mood disorder F39 ; Combinations of drug dependence excluding opioid type drug, unspecified abuse 304.80 ; Other disorder of impulse control 312.39 and Anxiety F41.9 [facility] [place] [address], [place] [address]- 0183 June, Anxiety F41.9 [facility], [place] [address] [place] [address] 57030- 7744 June, Pain in left knee M25.562 [facility] [place] [address] [place] [address] 28955- 3555 June, Anxiety F41.9 and Combinations of drug dependence excluding opioid type drug, unspecified abuse 304.80 [facility] [place] [address], [place] [address]- 0528 June, Unspecified episodic mood disorder 296.90 ; Combinations of drug dependence excluding opioid type drug, unspecified abuse 304.80 and Other disorder of impulse control 312.39 [facility] [place] [address] [place] [address] 83419- 7719 June, Anxiety F41.9 and Unspecified episodic mood disorder 296.90 [facility] [place] [address] [place] [address] 16535- 5617 May, Arthritis M19.90 [facility] [place] [id number] [place] [address] 46223- 6929 May, Arthritis M19.90 [facility] [place] [id number] [place] [address] 22584- 9823 May, Anxiety F41.9 ; Combinations of drug dependence excluding opioid type drug, unspecified abuse 304.80 and Other disorder of impulse control 312.39 [facility] [place] [id number] [place] [address] 30188- 1612 May, Left knee pain M25.562 [facility] [place] [id number] [place] [address] 91344- 2533 May, Arthritis M19.90 [facility] [place] [id number] [place] [address] 34960- 7284 May, [facility] [place] [address] [place] [address] 04330- 2968 May, Anxiety F41.9 ; Unspecified episodic mood disorder 296.90 ; Combinations of drug dependence excluding opioid type drug, unspecified abuse 304.80 and Other disorder of impulse control 312.39 [facility] [place] [address] [place] [address] 65361- 4000 May, Left knee pain M25.562 [facility] [place] [address] [place] [address] 77444- 9981 May, Left knee pain M25.562 ; Combinations of drug dependence excluding opioid type drug, unspecified abuse 304.80 ; Other disorder of impulse control 312.39 ; Fibromyalgia M79.7 ; Hypertension I10 ; Unspecified episodic mood disorder 296.90 and Left hip pain M25.552 [facility] [place] [address], [place] [address]- 6539 May, Unspecified episodic mood disorder 296.90 ; Other disorder of impulse control 312.39 ; Combinations of drug dependence excluding opioid type drug, unspecified abuse 304.80 and Anxiety F41.9 [facility] [address] [place] [address] 71317- 3806 May, Left knee pain M25.562 ; Combinations of drug dependence excluding opioid type drug, unspecified abuse 304.80 ; Other disorder of impulse control 312.39 ; Fibromyalgia M79.7 ; Hypertension I10 ; Unspecified episodic mood disorder 296.90 and Left hip pain M25.552 [place] [address], [place] [address]- 7146 May, Anxiety F41.9 ; Unspecified episodic mood disorder 296.90 ; Other disorder of impulse control 312.39 and Combinations of drug dependence excluding opioid type drug, unspecified abuse 304.80 [facility] [address] [place] [address] 13939- 8708 Apr, 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 and 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, implants and grafts, initial encounter T84.82XA [place] [address], [place] [address]- 9079 Apr, Anxiety F41.9 ; Unspecified episodic mood disorder 296.90 ; Combinations of drug dependence excluding opioid type drug, unspecified abuse 304.80 and Other disorder of impulse control 312.39 [place] [address], [place] [address]- 6075 Apr, Arthritis M19.90 [facility] [id number] [place] [address] 81805- 7525 Apr, Anxiety F41.9 ; Unspecified episodic mood disorder 296.90 ; Combinations of drug dependence excluding opioid type drug, unspecified abuse 304.80 and Other disorder of impulse control 312.39 [place] [address] [place] [id number] [place] [phone] 17 Apr, 2015 Arthritis M19.90 [facility] [place] [id number] [place] [address] [phone] 15 Apr, 2015 [facility] [place] [id number] [place] [phone]- [phone] 15 Apr, 2015 [facility] [place] [id number] [place] [address] [phone]- 3930 14 Apr, 2015 Unspecified episodic mood disorder 296.90 ; Combinations of drug dependence excluding opioid type drug, unspecified abuse 304.80 ; Other disorder of impulse control 312.39 and Anxiety F41.9 [facility] [id number] [place] [phone][phone] 11 Apr, 2015 Left knee pain M25.562 [facility] [place] [id number] [place] [address] [phone] Apr, [facility] [place] [id number] [place] [address]29- 2782 29 Mar, 2015 Unspecified episodic mood disorder 296.90 ; Anxiety F41.9 ; Other disorder of impulse control 312.39 and Combinations of drug dependence excluding opioid type drug, unspecified abuse 304.80 [facility], [place] [id number] [place] [address] 20049- 9026 Mar, Hyperpigmentation L81.9 [facility], [place] [id number] [place] [address] 35590- 4074 Mar, Arthritis M19.90 and Anxiety F41.9 [facility], [place] [id number] [place] [address] 23919- 9318 Mar, Unspecified episodic mood disorder F39 ; Combined drug dependence excluding opioids, 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 ; Other disorder of impulse control F63.89 and Anxiety F41.9 [facility], [place] [id number] [place] [address] 82193- 8700 12 Mar, 2015 Well woman exam Z01.419 ; Other fatigue R53.83 ; Hot flashes N95.1 ; Depression, unspecified depression type F32.9 and Body mass index (BMI) of 23.0-23.9 in adult Z68.[address] 33768- 1174 11 Mar, 2015 Unspecified episodic mood disorder 296.90 ; Other disorder of impulse control 312.39 and Anxiety F41.[address] 13837- 3239 11 Mar, 2015 Well woman exam Z01.419 [...] of breast Z12.39 and Limited mobility Z74.[address] 37736- 0560 10 Mar, [address] 86748- 8451 Mar, [address] 70065- 6246 08 Mar, [address] 93014- 9303 03 Mar, 2015 Other specified complication of internal orthopedic prosthetic devices, implants and grafts, initial encounter T84.89XA ; Fibromyalgia M79.7 ; Hypertension I10 ; Anemia D64.9 ; Insomnia G47.00 ; Anxiety F41.9 ; Arthritis M19.90 and Migraine G43.909 [facility], [place] [address] [address] 0022 Mar, [facility], [place] [id number] [place] [address] 94624- 6944 Feb, [facility], [place] [id number] [place] [address] 31970- 5656 Feb, Arthritis M19.90 and Anxiety F41.9 [facility], [place] [id number] [place] [address] 36530- 2659 Feb, [facility], [place] [id number] [place] [address] 63825- 4729 Feb, [facility], [place] [id number] [place] [address] 03655- 3248 Feb, [facility], [place] [id number] [place] [address] 38061- 8470 Feb, [facility], [place] [id number] [place] [address] 28918- 3647 Feb, Anxiety F41.9 [facility], [place] [id number] [place] [address] 45797- 7515 Feb, [facility], [place] [id number] [place] [address] 61361- 9887 Feb, [facility], [place] [id number] [place] [address] 48665- 3554 Feb, 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 and Fibromyalgia M79.7 [facility], [place] [id number] [place] [address] 28613- 8159 Feb, [facility], [place] [id number] [place] [address] 65027- 3969 Jan, [facility], [place] [id number] [place] [address] 62757- 9559 Jan, [facility], [place] [id number] [place] [address] 05444- 3559 Jan, [facility], [place] [address], [place] [address]- 8753 Jan, [facility], [place] [address], [place] [address]- 7531 Jan, [facility], [place] [address] 0047 Jan, [facility], [place] [id number] [place] [address] 33743- 9025 Jan, [facility], [place] [id number] [place] [address] 169445- 1475 Jan, [facility], [place] [id number] [place] [address] 956358- 8930 Dec, [facility], [place] [id number] [place] [address] 72071- 9363 Dec, Left knee pain M25.562 [facility], [place] [id number] [place] [address] 90114- 1487 Dec, Left knee pain M25.562 [facility], [place] [id number] [place] [address] 88650- 9899 Dec, Fibromyalgia M79.7 ; Hypertension I10 and Arthritis M19.90 [facility], [place] [address], [place] [address]- 9599 Dec, [facility], [place] [address], [place] [address]- 0764 Dec, [facility], [place] [address], [place] [address]- 3608 Dec, [facility], [place] [address], [place] [address]- 7746 Dec, [facility], [place] [address], [place] [address]- 7081 Nov, [facility], [place] [id number] [place] [address]- 9193 Nov, 2014 [facility] [place] [facility] [address] [id number], [place] [address]- 9126 Nov, 2014 [facility] [place] [facility] [address] [facility] [id number], [place] [address] 2544 Nov, Hypertension I10 [facility] [place] [facility] [address] [id number] [place] [address] 2546 23 Oct, 2014 [facility] [place] [facility] [address] [id number] [place] [address] 2543 17 Oct, 2014 [facility] [place] [facility] [address] [id number] [place] [address]- 4488 04 Oct, 2014 [facility] [place] [facility] [address] [facility] [id number], [place] [address] 2542 04 Oct, 2014 [facility] [place] [facility] [address] [facility] [id number], [place] [address]- 0547 Oct, 2014 [facility] [place] [facility] [address] [facility] [id number], [place] [address]- 1034 Sep, [facility] [place] [facility] [address] [facility] [id number], [place] [address]- 6501 Sep, [facility] [place] [facility] [address] [id number] [address]- 3462 Sep, Hip pain associated with recalled total hip arthroplasty hardware 996.77 [facility] [place] [facility] [address] [id number], [place] [address]- 7362 Sep, [facility] [place] [facility] [address] [facility] [id number], [place] [address]- 4906 Sep, [facility] [place] [facility] [address] [facility] [id number], [place] [address]- 4723 Sep, [facility] [place] [facility] [address] [facility] [id number], [place] [address]- 3647 Aug, [facility] [place] [facility] [address] [facility] [id number] [place] [address]- 1746 Jul, [facility] [address] [id number] [place] [address]- 6225 June, [facility] [place] [facility] [address] [id number] [place] [address]- 1509 June, [facility] [place] [facility] [address] [id number] [place] [address]- 6776 June, [facility] [place] [facility] [address] [id number] [place] [address]- 0938 June, [facility] [place] [facility] [address] [id number] [place] [address]- 4276 June, [facility] [place] [facility] [address] [id number] [place] [address]- 6986 June, [facility] [place] [facility] [address] [id number] [place] [address]- 8038 May, [facility] [place] [facility] [address] [id number] [place] [address]- 7104 May, [facility] [place] [facility] [address] [id number] [place] [address]- 8838 May, [facility] [place] [facility] [address] [id number] [place] [address]- 4896 Apr, [facility] [place] [facility] [address] [id number] [place] [address]- 9587 30 Apr, 2014 [facility] [place] [facility] [address] [id number] [place] [address]- 0597 Apr, [facility] [place] [facility] [address] [id number] [place] [address]- 4201 Apr, [facility] [place] [facility] [address] [id number] [place] [address]- 5925 Apr, [facility] [place] [facility] [address] [id number] [place] [address]- 7558 Apr, [facility] [place] [facility] [address] [id number] [place] [address]- 2830 Apr, [facility] [place] [facility] [address] [id number] [place] [address]- 6026 Apr, [facility] [place] [facility] [address] [id number] [place] [address]- 9796 Apr, [facility] [place] [facility] [address] [id number] [place] [address]- 2165 Apr, [facility] [place] [facility] [address] [id number] [place] [address]- 5114 Apr, [facility] [place] [facility] [address] [id number] [place] [address]- 3512 Mar, [facility] [place] [facility] [address] [id number] [place] [address]- 4680 Mar, [facility] [place] [facility] [address] [id number] [place] [address]- 1977 Mar, [facility] [place] [facility] [address] [id number] [place] [address]- 5350 Mar, [facility] [place] [facility] [address] [id number] [place] [address]- 3864 Mar, [facility] [place] [facility] [address] [id number] [place] [address]- 3113 Mar, [facility] [place] [facility] [address] [id number] [place] [address]- 6602 Feb, [facility] [place] [facility] [address] [id number] [place] [address]- 2054 Feb, [facility] [place] [facility] [address] [id number] [place] [address]- 3932 Feb, [facility] [place] [facility] [address] [id number] [place] [address]- 1768 Feb, [facility] [place] [facility] [address] [id number] [place] [address]- 0423 Jan, [facility] [place] [facility] [address] [id number] [place] [address]- 7379 Jan, [facility] [place] [facility] [address] [id number] [place] [address]- 4400 Jan, [facility] [place] [facility] [address] [id number] [place] [address]- 4448 Jan, [facility] [place] [facility] [address] [id number] [place] [address]- 9887 Dec, [facility] [place] [facility] [address] [id number] [place] [address]- 3904 Dec, [facility] [place] [facility] [address] [id number] [place] [address]- 3639 Dec, [facility] [place] [facility] [address] [id number] [place] [address]- 8178 Dec, [facility] [place] [facility] [address] [id number] [place] [address]- 0105 Dec, [facility] [place] [facility] [address] [id number] [place] [address]- 9131 Dec, [facility] [place] [facility] [address] [id number] [place] [address]- 4264 Dec, [facility] [place] [facility] [address] [id number] [place] [address]- 4296 Dec, [facility] [place] [facility] [address] [id number], [place] [address]- 2183 Dec, [facility] [place] [facility] [address] [id number] [place] [address]- 1104 Dec, [facility] [place] [facility] [address] [id number] [place] [address]- 1847 Dec, [facility] [place] [facility] [address] [id number], [place] [address]- 3125 Nov, [facility] [place] [facility] [address] [id number] [place] [address]- 2425 28 Nov, 2013 [facility] [place] [facility] [address] [id number] [place] [address]- 1468 28 Nov, 2013 [facility] [place] [facility] [address] [id number] [place] [address]- 9968 17 Nov, 2013 [facility] [place] [facility] [address] [id number] [place] [address]- 1730 17 Nov, 2013 [facility] [place] [facility] [address] [id number] [place] [address]- 1879 15 Nov, 2013 [facility] [place] [facility] [address] [id number] [place] [address]- 7887 15 Nov, 2013 [facility] [place] [facility] [address] [id number] [place] [address]- 1909 15 Nov, 2013 [facility] [place] [facility] [address] [id number] [place] [address]- 4570 15 Nov, 2013 [facility] [place] [facility] [address] [id number] [place] [address]- 6722 14 Nov, 2013 [facility] [place] [facility] [address] [id number] [place] [address]- 5638 14 Nov, 2013 [facility] [place] [facility] [address] [id number] [place] [address]- 2698 14 Nov, 2013 [facility] [place] [facility] [address] [id number] [place] [address]- 7438 14 Nov, 2013 [facility] [place] [facility] [address] [id number] [place] [address]- 6567 13 Nov, 2013 [facility] [place] [facility] [address] [id number] [place] [address]- 6075 13 Nov, 2013 [facility] [place] [facility] [address] [id number] [place] [address]- 4752 11 Nov, 2013 [facility] [place] [facility] [address] [id number] [place] [address]- 6780 Nov, [facility] [place] [facility] [address] [id number] [place] [address]- 7765 07 Nov, 2013 [facility] [place] [facility] [address] [id number] [place] [address]- 2908 07 Nov, 2013 [facility] [place] [facility] [address] [id number] [place] [address]- 0086 Nov, 2013 [facility] [place] [facility] [address] [id number] [place] [address]- 0619 Nov, 2013 [facility] [place] [facility] [address] [id number] [place] [address]- 7933 30 Sep, 2013 [facility] [place] [facility] [address] [id number] [place] [address]- 5626 30 Oct, 2013 [facility] [place] [facility] [address] [id number] [place] [address]- 0250 26 Oct, 2013 [facility] [place] [facility] [address] [id number], [place] [address]- 0154 26 Oct, 2013 [facility] [place] [facility] [address] [id number] [place] [address]- 8151 22 Oct, 2013 [facility] [place] [facility] [address] [id number] [place] [address]- 8756 22 Oct, 2013 [facility] [place] [facility] [address] [id number], [place] [address]- 2167 18 Sep, 2013 [facility] [place] [facility] [address] [id number], [place] [address]- 2545 18 Sep, 2013 [facility] [place] [facility] [address] [id number], [place] [address]- 2549 18 Sep, 2013 [facility] [place] [facility] [address] [id number], [place] [address]- 3351 18 Sep, 2013 [facility] [place] [facility] [address] [id number], [place] [address]- 9716 12 Oct, 2013 [facility] [place] [facility] [address] [id number] [place] [address]- 7352 12 Oct, 2013 [facility] [place] [facility] [address] [id number] [place] [address]- 9019 Oct, [facility] [place] [facility] [address] [id number] [place] [address]- 6597 Oct, [facility] [place] [facility] [address] [id number] [place] [address]- 6535 Sep, [facility] [place] [facility] [address] [id number] [place] [address]- 7219 Sep, [facility] [place] [facility] [address] [id number] [place] [address]- 8523 Sep, [facility] [place] [facility] [address] [id number] [place] [address]- 1074 Sep, [facility] [place] [facility] [address] [id number] [place] [address]- 1751 Sep, [facility] [place] [facility] [address] [id number] [place] [address]- 2271 Sep, [facility] [place] [facility] [address] [id number] [place] [address]- 4219 Sep, [facility] [place] [facility] [address] [id number] [place] [address]- 7299 Sep, [facility] [place] [facility] [address] [id number] [place] [address]- 1512 Sep, [facility] [place] [facility] [address] [id number] [place] [address]- 7171 Sep, [facility] [place] [facility] [address] [id number] [place] [address]- 8649 Sep, [facility] [place] [facility] [address] [id number] [place] [address]- 3442 Sep, [facility] [place] [facility] [address] [id number] [place] [address]- 4639 Sep, [facility] [place] [facility] [address] [id number] [place] [address]- 5077 Sep, [facility] [place] [facility] [address] [id number] [place] [address]- 6591 Sep, [facility] [place] [facility] [address] [id number] [place] [address]- 1027 Sep, [facility] [place] [facility] [address] [id number] [place] [address]- 3764 Sep, [facility] [place] [facility] [address] [id number] [place] [address]- 1626 Sep, [facility] [place] [facility] [address] [id number] [place] [address]- 1005 Aug, [facility] [place] [facility] [address] [id number] [place] [address]- 5075 Aug, [facility] [place] [facility] [address] [id number] [place] [address]- 5550 Aug, [facility] [place] [facility] [address] [id number] [place] [address]- 6584 Aug, [facility] [place] [facility] [address] [id number] [place] [address]- 7135 Aug, [facility] [place] [facility] [address] [id number] [place] [address]- 1617 Aug, [facility] [place] [facility] [address] [id number] [place] [address]- 8539 Jul, [facility] [place] [facility] [address] [id number] [place] [address]- 6824 Jul, [facility] [place] [facility] [address] [id number] [place] [address]- 5628 Jul, [facility] [place] [facility] [address] [id number] [place] [address]- 2164 Jul, [facility] [place] [facility] [address] [id number] [place] [address]- 8051 June, [facility] [place] [facility] [address] [id number] [place] [address]- 8114 June, [facility] [place] [facility] [address] [id number] [place] [address]- 5816 June, [facility] [place] [facility] [address] [id number] [place] [address]- 8980 June, [facility] [place] [facility] [address] [id number] [place] [address]- 8070 June, [facility] [place] [facility] [address] [id number] [place] [address]- 8755 June, [facility] [place] [facility] [address] [id number] [place] [address]- 8181 June, [facility] [place] [facility] [address] [id number] [place] [address]- 1341 May, [facility] [place] [facility] [address] [id number] [place] [address]- 5595 May, [facility] [place] [facility] [address] [id number] [place] [address]- 7691 May, [facility] [place] [facility] [address] [id number] [place] [address]- 4304 May, [facility] [place] [facility] [address] [id number] [place] [address]- 7110 May, [facility] [place] [facility] [address] [id number] [place] [address]- 6366 May, [facility] [place] [facility] [address] [id number] [place] [address]- 9098 Apr, [facility] [place] [facility] [address] [id number] [place] [address] Apr, [facility] [place] [facility] [address] [id number] [place] [address] Apr, [facility] [place] [facility] [address] [id number] [place] [address] 28 Apr, 2013 [facility] [place] [facility] [address] [id number] [place] [address] 14 Apr, 2013 [facility] [place] [facility] [address] [id number] [place] [address]26 14 Apr, 2013 [facility] [place] [facility] [address] [id number] [place] [address] Apr, [facility] [place] [facility] [address] [id number] [place] [address] Apr, [facility] [place] [facility] [address] [id number] [place] [address] Apr, [facility] [place] [facility] [address] [id number] [place] [address] Apr, [facility] [place] [facility] [address] [id number] [place] [address] Apr, [facility] [place] [facility] [address] [id number] [place] [address] 04 Apr, 2013 [facility] [place] [facility] [address] [id number] [place] [address] Apr, [facility] [place] [facility] [address] [id number] [place] [address] Apr, [facility] [place] [facility] [address] [id number] [place] [address] Mar, [facility] [place] [facility] [address] [id number] [place] [address] Mar, [facility] [place] [facility] [address] [id number] [place] [address] 05 Mar, 2013 [facility] [place] [facility] [address] [id number] [place] [address] Feb, [facility] [place] [facility] [address] [id number] [place] [address] Feb, [facility] [address] [id number] [place] [address] Feb, [facility] [place] [facility] [address] [id number] [place] [address] Feb, [facility] [place] [facility] [address] [id number] [place] [address] Feb, [facility] [place] [facility] [address] [id number] [place] [address] Feb, [facility] [place] [facility] [address] [id number] [place] [address] Feb, [facility] [place] [facility] [address] [id number] [place] [address] Feb, [facility] [place] [facility] [address] [id number] [place] [address] Feb, [facility] [place] [facility] [address] [id number] [place] [address]275 Feb, [facility] [place] [facility] [address] [id number] [place] [address] Jan, [facility] [place] [facility] [address] [id number] [place] [address] Jan, [facility] [place] [facility] [address] [id number], [place] [address] Jan, [facility] [place] [facility] [address] [id number], [place] [address] Jan, [facility] [place] [facility] [address] [id number] [place] [address] Jan, [facility] [place] [facility] [address] [id number] [place] [address] Jan, [facility] [place] [facility] [address] [id number] [place] [address] 30[address] Jan, [facility] [place] [facility] [address] [id number] [place] [address] 23 Jan, 2012 [facility] [address] [id number] [place] [address] Jan, 2012 [facility] [place] [facility] [address] [id number] [place] [address] Jan, [facility] [address] [id number] [place] [address]176 17 Jan, 2012 [facility] [place] [facility] [address] [id number] [place] [address]84 17 Jan, 2012 [facility] [address] [id number] [place] [address] 16 Jan, 2012 [facility] [address] [id number] [place] [address] Jan, [facility] [address] [id number] [place] [address] 9567 Jan, [facility] [address] [id number] [place] [address] Jan, [facility] [place] [facility] [address] [id number] [place] [address] Jan, [facility] [address] [facility] [id number] [place] [address] 05 Jan, 2013 [facility] [place] [facility] [address] [id number] [place] [address]- 1436 Jan, [facility] [place] [facility] [address] [id number] [place] [address] Jan, [facility] [place] [facility] [address] [id number] [place] [address]959 Jan, [facility] [place] [facility] [address] [facility] [id number] [place] [address] Dec, [facility] [place] [facility] [address] [id number] [place] [address] 9817 Dec, [facility] [place] [facility] [address] [id number] [place] [address]861 Dec, [facility] [place] [facility] [address] [id number] [place] [address] Dec, [facility] [place] [facility] [address] [id number] [place] [address]- [address]24 Dec, [facility] [place] [facility] [address] [id number] [place] [address]- [address]448 Dec, [facility] [place] [facility] [address] [id number] [place] [address] Dec, [facility] [place] [facility] [address] [id number] [place] [address] 67[address] Dec, [facility] [place] [facility] [address] [id number] [place] [address] Dec, [facility] [place] [facility] [address] [id number] [place] [address]64 Dec, [facility] [place] [facility] [address] [id number] [place] [address] Nov, [facility] [place] [facility] [address] [id number] [place] [address] Nov, [facility] [place] [facility] [address] [address] [id number] [place] [address] Nov, [facility] [place] [facility] [address] [id number], [place] [address] Nov, [facility] [place] [facility] [address] [id number] [place] [address] Nov, [facility] [place] [facility] [address] [id number] [place] [address] 9769 Nov, [facility] [place] [facility] [address] [id number], [place] [address] Nov, [facility] [place] [facility] [address] [id number], [place] [address] Nov, [facility] [place] [facility] [address] [id number] [place] [address]757 Nov, [facility] [place] [facility] [address] [id number] [place] [address] Nov, [facility] [place] [facility] [address] [id number] [place] [address]346 Oct, [facility] [place] [facility] [address] [id number] [place] [address] 2545 Oct, [facility] [place] [facility] [address] [id number] [place] [address] 0920 Oct, [facility] [place] [facility] [address] [id number] [place] [address] Oct, [facility] [place] [facility] [address] [id number] [place] [address]200 Oct, [facility] [place] [facility] [address] [id number] [place] [address]- 3870 Sep, [facility] [place] [facility] [address] [id number] [place] [address] 4850 Sep, [facility] [place] [facility] [address] [id number] [place] [address] 4699 Aug, [facility] [place] [facility] [address] [id number] [place] [address]- 0323 Aug, [facility] [place] [facility] [address] [id number] [place] [address]- 3681 Aug, [facility] [place] [facility] [address] [id number] [place] [address]- 0746 Aug, [facility] [place] [facility] [address] [id number] [place] [address] 5349 Aug, [facility] [place] [facility] [address] [id number] [place] [address] 4657 Aug, [facility] [place] [facility] [address] [id number] [place] [address]- 2546 Aug, [facility] [address] [id number] [place] [address] 8788 Jul, [facility] [address] [id number] [place] [address] 6[address] Jul, [facility] [address] [id number] [place] [address] 5461 June, [facility] [address] [id number] [place] [address] 2312 June, [facility] [address] [id number] [place] [address]- 6264 June, [facility] [address] [id number] [place] [address]- 118[address] June, [facility] [address] [id number] [place] [address] 9872 June, [facility] [address] [id number] [place] [address] June, [facility] [address] [id number] [place] [address]- 9686 June, [facility] [address] [id number] [place] [address] 5803 June, [facility] [address] [id number] [place] [address] 1396 June, [facility] [address] [id number] [place] [address] 7996 June, [facility] [address] [id number] [place] [address]- 8866 June, [facility] [address] [id number] [place] [address]- 6036 May, [facility] [address] [id number] [place] [address] 5229 May, [facility] [address] [id number] [place] [address] 6304 May, [facility] [address] [id number] [place] [address]- 6640 May, [facility] [address] [id number] [place] [address]- 7124 Apr, [facility] [address] [id number] [place] [address]- 9776 Apr, [facility] [address] [id number] [place] [address]- 5551 Apr, [facility] [address] [id number] [place] [address]- 9388 Mar, [facility] [address] [id number] [place] [address] 4814 Mar, [facility] [address] [id number] [place] [address]- 9745 Feb, [facility] [address] [id number] [place] [address]- 1090 Feb, [facility] [address] [id number] [place] [address]- 1351 Feb, [facility] [address] [id number] [place] [address]- 5542 Feb, [facility] [address] [id number], [place] [address] 6[address] 16 Feb, 2012 [facility] [place] [facility] [address] [id number] [place] [address]- 0536 14 Feb, 2012 [facility] [place] [facility] [address] [id number] [place] [address]- 7700 Feb, [facility] [place] [facility] [address] [id number] [place] [address]- 5253 Jan, [facility] [place] [facility] [address] [id number] [place] [address]- 6048 31 Jan, 2012 [facility] [place] [facility] [address] [id number] [place] [address]- 8486 28 Jan, 2012 [facility] [place] [facility] [address] [id number] [place] [address]- 0726 Jan, [facility] [place] [facility] [address] [id number] [place] [address]- 7876 17 Jan, 2012 [facility] [place] [facility] [address] [id number] [place] [address]- 5486 Jan, [facility] [place] [facility] [address] [id number] [place] [address]- 0026 Jan, [facility] [place] [facility] [address] [id number] [place] [address]- 3966 Jan, [facility] [place] [facility] [address] [id number] [place] [address]- 2189 Jan, [facility] [place] [facility] [address] [id number] [place] [address]- 1143 Jan, [facility] [place] [facility] [address] [id number] [place] [address] Jan, [facility] [place] [facility] [address] [facility] [id number] [place] [address]- 9251 Dec, [facility] [place] [facility] [address] [id number] [place] [address]- 6783 Dec, [facility] [place] [facility] [address] [id number] [place] [address]- 3786 Dec, [facility] [place] [facility] [address] [id number] [place] [address]- 2462 Dec, [facility] [place] [facility] [address] [facility] [id number] [place] [address]- 9318 Nov, [facility] [place] [facility] [address] [facility] [id number] [place] [address]- 6380 Nov, [facility] [place] [facility] [address] [id number] [place] [address]- 3983 08 Nov, 2011 [facility] [place] [facility] [address] [id number] [place] [address]- 4906 27 Oct, 2011 [facility] [place] [facility] [address] [id number] [place] [address] 2546 24 Oct, 2011 [facility] [place] [facility] [address] [id number] [place] [address] 2546 21 Oct, 2011 [facility] [place] [facility] [address] [id number] [place] [address]- 8077 10 Oct, 2011 [facility] [place] [facility] [address] [id number] [place] [address]- 5596 07 Oct, 2011 [facility] [place] [facility] [address] [id number] [place] [address]- 3297 04 Oct, 2011 [facility] [place] [facility] [address] [id number] [place] [address]- 9036 04 Oct, 2011 [facility] [place] [facility] [address] [id number] [place] [address]- 0964 29 Sep, 2011 [facility] [place] [facility] [address] [id number] [place] [address]- 2118 Sep, [facility] [place] [facility] [address] [id number] [place] [address]- 4326 Sep, [facility] [place] [facility] [address] [id number] [place] [address]- 7321 Sep, [facility] [place] [facility] [address] [id number] [place] [address]- 6686 Sep, [facility] [place] [facility] [address] [id number] [place] [address]- 7509 Aug, [facility] [place] [facility] [address] [id number] [place] [address]- 3535 Aug, [facility] [place] [facility] [address] [id number] [place] [address]- 0080 17 Aug, 2011 [facility] [place] [facility] [address] [id number] [place] [address]- 9740 16 Aug, 2011 [facility] [place] [facility] [address] [id number] [place] [address]- 7981 13 Aug, 2011 [facility] [place] [facility] [address] [id number] [place] [address]- 9656 Aug, [facility] [place] [facility] [address] [id number] [place] [address]- 3542 Aug, [facility] [place] [facility] [address] [id number] [place] [address]- 2706 Jul, [facility] [place] [facility] [address] [id number] [place] [address]- 3728 Jul, [facility] [place] [facility] [address] [id number] [place] [address]- 5642 Jul, [facility] [place] [facility] [address] [id number] [place] [address]- 2801 Jul, [facility] [place] [facility] [address] [id number] [place] [address]- 1245 Jul, [facility] [place] [facility] [address] [id number] [place] [address]- 8087 Jul, [facility] [place] [facility] [address] [id number] [place] [address]- 2739 Jul, [facility] [place] [facility] [address] [id number] [place] [address]- 4940 Jul, [facility] [place] [facility] [address] [id number] [place] [address]- 2840 Jul, [facility] [place] [facility] [address] [id number] [place] [address]- 4123 June, [facility] [place] [facility] [address] [id number] [place] [address]- 2334 June, [facility] [place] [facility] [address] [id number] [place] [address]- 9463 June, [facility] [address] [id number] [place] [address]- 3094 June, [facility] [address] [id number] [place] [address]- 3[address] June, [facility] [address] [id number] [place] [address]- 7068 June, [facility] [address] [id number] [place] [address]- 9190 June, [facility] [address] [id number] [place] [address]- 3133 June, [facility] [address] [id number] [place] [address]- 1195 May, [facility] [address] [id number] [place] [address]- 2022 May, [facility] [address] [id number] [place] [address]- 7236 May, [facility] [address] [id number] [place] [address]- 6728 May, [facility] [address] [id number] [place] [address]- 9781 16 May, 2011 [facility] [address] [id number] [place] [address]- 9223 16 May, 2011 [facility] [address] [id number] [place] [address]- 7937 May, [facility] [address] [id number] [place] Apr, [facility] [address] [id number] [place] [address]- 5120 Apr, [facility] [address] [id number] [place] [address]- 8829 Apr, [facility] [address] [id number] [place] [address]- 5268 Apr, [facility] [place] [facility] [address] [id number] [place] [address]- 1346 Apr, [facility] [place] [facility] [address] [id number] [place] [address]- 7456 Apr, [facility] [place] [facility] [address] [id number] [place] [address] 2546 Apr, [facility] [place] [facility] [address] [id number] [place] [address]- 7443 Mar, [facility] [place] [facility] [address] [id number] [place] [address]- 6346 Mar, [facility] [place] [facility] [address] [id number] [place] [address]- 7546 14 Mar, 2011 [facility] [place] [facility] [address] [id number] [place] [address]- 6231 13 Mar, 2011 [facility] [place] [facility] [address] [id number] [place] [address]- 5135 Mar, [facility] [place] [facility] [address] [facility] [id number] [place] [address]- 0802 Mar, [facility] [place] [facility] [address] [id number] [place] [address]- 1921 Mar, [facility] [place] [facility] [address] [id number] [place] [address]- 8875 Feb, [facility] [place] [facility] [address] [id number] [place] [address]- 9196 Feb, [facility] [place] [facility] [address] [id number] [place] [address]- 7102 Feb, [facility] [place] [facility] [address] [id number] [place] [address]- 0799 Feb, [facility] [place] [facility] [address] [id number] [place] [address]- 2992 Feb, [facility] [address] [id number] [place] [address]- 9386 Feb, [facility] [address] [id number] [place] [address]- 2586 Feb, [facility] [address] [id number] [place] [address]- 2296 Feb, [facility] [address] [id number] [place] [address] 2541 Feb, [facility] [address] [id number] [place] [address]- 3509 Feb, [facility] [address] [id number] [place] [address]- 5214 Jan, [facility] [address] [id number] [place] [address]- 8051 Jan, [facility] [address] [id number] [place] [address]- 1803 Jan, [facility] [address] [id number] [place] [address]- 3338 Jan, [facility] [address] [id number] [place] [address]- 2549 Jan, [facility] [address] [id number] [place] [address] 2546 Jan, [facility] [address] [id number] [place] [address] 2546 Jan, [facility] [place] [facility] [address] [id number] [place] [address] 2546 Jan, [facility] [place] [facility] [address] [id number] [place] [address] 2546 Jan, [facility] [address] [id number] [place] [address]- 8059 Jan, [facility] [place] [facility] [address] [id number] [place] [address]- 1923 Jan, [facility] [place] [facility] [address] [id number] [place] [address]- 0506 Dec, [facility] [place] [facility] [address] [id number] [place] [address]- 8107 Dec, [facility] [place] [facility] [address] [id number] [place] [address]- 7651 Dec, [facility] [place] [facility] [address] [id number] [place] [address]- 7592 Dec, [facility] [place] [facility] [address] [id number] [place] [address]- 6868 Dec, [facility] [place] [facility] [address] [id number] [place] [address]- 9552 Dec, [facility] [place] [facility] [address] [id number] [place] [address]- 7182 Dec, [facility] [place] [facility] [address] [id number] [place] [address]- 6281 Dec, [facility] [place] [facility] [address] [id number] [place] [address]- 4592 Dec, [facility] [place] [facility] [address] [id number] [place] [address]- 3666 Nov, [facility] [place] [facility] [address] [id number], [place] [address]- 7286 Nov, [facility] [place] [facility] [address] [id number] [place] [address]- 2027 Nov, [facility] [place] [facility] [address] [id number] [place] [address]- 3394 Nov, [facility] [place] [facility] [address] [id number] [place] [address]- 5809 Nov, [facility] [place] [facility] [address] [id number], [place] [address]- 3469 Nov, [facility] [place] [address] [facility] [id number], [place] [address]- 3752 Aug, [facility] [place] [address] [facility] [id number][place] 6719 Feb, [facility] [place] [id number], [place] [address]- 7891 Jan, [facility] [place] [address] [facility] [id number], [place] [address]- 5659 Jan, [facility] [place] [address] [facility] [id number], [place] [address]- 5905 Jan, [facility] [place] [id number] [place] [address]- 6002 Jan, [facility] [place] [id number], [place] [address]- 6838 Jan, [facility] [place] [id number], [place] [address]- 9851 Dec, [facility] [place] [id number], [place] [address]- 2572 Dec, [facility] [place] [id number], [place] [address]- 0548 Dec, [facility] [place] [id number], [place] [address]- 3592 Dec, [facility] [place] [address], [place] [address]- 4190 Nov, [facility] [place] [address], [place] [address]- 0768 Nov, [facility] [place] [address], [place] [address]- 8074 Nov, IMMUNIZATIONS No Known Immunizations SOCIAL HISTORY Never Assessed REASON FOR VISIT medication refill PLAN OF CARE VITAL SIGNS MEDICATIONS Unknown [...]
--- OUTSIDE RECORDS SUMMARY | 2018-01-13 22:13 | XMS REPORT ---
Author Author WYATT SOTO [facility] eClinicalWorks Address Unknown Phone Unavailable Care Team Providers Care Industrial Accountant Name Role Phone WYATT SOTO CP Unavailable [...] EXAM OF KNEE, 1 OR 2 CPT-4 44540 Dec 27, 2014 Results No Known Results Summary Purpose eClinicalWorks Submission
--- OUTSIDE RECORDS SUMMARY | 2018-01-13 22:13 | XMS REPORT ---
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
--- OUTSIDE RECORDS SUMMARY | 2018-01-13 22:13 | XMS REPORT ---
Author Author WYATT SOTO [facility] eClinicalWorks Address Unknown Phone Unavailable Care Team Providers Care Ball Ender Name Role Phone WYATT SOTO CP Unavailable [...]
--- OUTSIDE RECORDS SUMMARY | 2018-01-13 22:15 | XMS REPORT ---
Author Author WYATT SOTO 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 Active 96508974 Problem Unspecified episodic mood disorder F39 Active 24249628 Problem Hypertension I10 Active 78875888 Problem Venous insufficiency (chronic) (peripheral) I87.2 Active 051704563 Problem Gastroesophageal reflux disease, esophagitis presence not specified K21.9 Active 479524989 Problem Other chronic pain G89.29 Active 55721834 Problem Chronic hepatitis C without hepatic coma B18.2 Active 632618926 Problem Other psychoactive substance dependence, uncomplicated F19.20 Active 7819413 Problem 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, 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 654721175 ALLERGIES Substance Reaction Event Type Date Status Propranolol HCl chest pain, headache Drug Allergy Jan, Active Bactrim unknown Drug Allergy Jan, Active Penicillins unknown Non Drug Allergy Jan, Active ENCOUNTERS Encounter Location Date Diagnosis [facility] [address] [facility] [id number], [place] [address] Jul, [facility] [address] [facility] [id number], [place] [address] Jul, Unspecified episodic mood disorder F39 [facility] [address] [facility] [id number], [place] [address] June, Gastroesophageal reflux disease, esophagitis presence not specified K21.9 [facility] [address], [place] [address] June, [facility] [id number] [place] [address] 84382- 3946 June, [facility] [id number] [place] [address] 64814- 5958 June, Arthritis M19.90 [facility] [id number] [place] [address] 87247- 0925 June, [facility] [id number] [place] [address] 46711- 4369 June, [facility] [id number] [place] [address] 75774- 8893 June, Unspecified episodic mood disorder F39 [facility] [id number] [place] [address] 06295- 4475 May, Unspecified episodic mood disorder F39 [facility] [id number] [place] [address] 98127- 7871 May, [facility] [id number] [place] [address] 04185- 6444 May, Arthritis M19.90 [facility] [id number] [place] [address] 87077 -2925 May, Dysuria R30.0 ; Abscess L02.91 and Acute cystitis without hematuria N30.00 [facility] [address] [place] [address] 03800- 1025 May, 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 ; Unspecified episodic mood disorder F39 ; Combined drug dependence excluding opioids, 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 ; Anxiety F41.9 and Other psychoactive substance dependence, uncomplicated F19.20 [facility] [address], [place] [address] May, [facility] [id number] [place] [address] 08333- 1456 May, 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 ; Unspecified episodic mood disorder F39 ; Combined drug dependence excluding opioids, 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 ; Other psychoactive substance dependence, uncomplicated F19.20 and Anxiety F41.9 [facility] [id number] [place] [address] 65693- 3199 May, Other chronic pain G89.29 ; Left hip pain M25.552 ; Hypertension I10 ; 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, 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 and Unspecified episodic mood disorder F39 [facility] [id number] [place] [address] 50101- 7783 Apr, [facility] [address] [address]4257 Apr, Neck pain M54.2 ; Left hip pain M25.552 and Fall, initial encounter W19.XXXA [facility] [address] 87548- 1458 Apr, Unspecified episodic mood disorder F39 ; Combined drug dependence excluding opioids, 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 ; Anxiety F41.9 ; Other psychoactive substance dependence, uncomplicated F19.20 and 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 [facility] [id number] [place] [address] 65385- 6186 Apr, [facility] [id number] [place] [address] 35723- 3956 Apr, Arthritis M19.90 and Unspecified episodic mood disorder F39 [facility] [id number] [place] [address] 32518- 6176 Apr, Unspecified episodic mood disorder F39 [facility] [id number] [place] [address] 35289- 8779 Apr, [facility] [id number] [place] [address] 20120- 6380 08 Apr, 2017 [facility] [address] 10608- 2431 Apr, Unspecified episodic mood disorder F39 ; Combined drug dependence excluding opioids, 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 ; Anxiety F41.9 ; Other psychoactive substance dependence, uncomplicated F19.20 and 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 [facility] [id number] [place] [address] 06006- 0518 Mar, Unspecified episodic mood disorder F39 [facility] [id number] [place] [address] 50753- 1408 Mar, Gastroesophageal reflux disease, esophagitis presence not specified K21.9 [facility] [id number] [place] [address] 13383- 4355 Mar, Arthritis M19.90 and Unspecified episodic mood disorder F39 [facility] [id number] [place] [address] 81436- 2320 Feb, [facility] [id number] [place] [address] 59932- 3122 Feb, [facility] [id number] [place] [address] 31651- 6599 Feb, [facility] [id number] [place] [address] 86478- 0210 Feb, Arthritis M19.90 [facility] [id number] [place] [address] 61918- 4318 Feb, Non-pressure chronic ulcer of right calf, 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 ; Unspecified episodic mood disorder F39 and Left hip pain M25.552 [facility] [id number] [place] [address] 71946- 9209 Feb, [facility] [id number] [place] [address] 67782- 7314 Feb, [facility] [id number] [place] [address] 63418- 6559 Jan, Arthritis M19.90 [facility] [id number] [place] [address] 64664- 3448 Jan, Left hip pain M25.552 and Non-pressure chronic ulcer of right calf, 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 [facility] [id number] [place] [address] 98823- 4108 Jan, Chronic hepatitis C without hepatic coma B18.2 [place] [address] 45134- 3496 Jan, Encounter for immunization Z23 ; Venous insufficiency ( chronic) (peripheral) I87.2 ; Non-pressure chronic ulcer of unspecified calf limited to breakdown of skin L97.201 and Gastroesophageal reflux disease, esophagitis presence not specified K21.9 [place] [id number] [place] [address] 57627- 2871 Jan, [place] [address] 83364- 0707 Jan, Chronic hepatitis C without hepatic coma B18.2 and Encounter for immunization Z23 [place] [id number] [place] [address] 90798- 7104 Jan, Arthritis M19.90 [place] [id number] [place] [address] 89892- 0379 Jan, [facility] [id number] [place] [address] 89223- 7285 Dec, [place] [id number] [place] [address] 67569- 9338 Dec, Unspecified episodic mood disorder F39 [place] [id number] [place] [address] 07073- 1688 Dec, Arthritis M19.90 [facility] [id number] [place] [address] 26254- 8039 Dec, Arthritis M19.90 [facility] [id number] [place] [address] 88439- 6482 Nov, [facility] [address], [place] [address] 2437 Nov, [facility] [id number] [place] [address] 46071- 5690 Nov, Other psychoactive substance dependence, uncomplicated F19.20 ; 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, 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 and Chronic hepatitis C without hepatic coma B18.2 [facility] [id number] [place] [address] 97300- 4568 Nov, Arthritis M19.90 [facility] [id number] [place] [address] 57539 -1874 Oct, Partial thickness burn of abdomen, initial encounter T21.22XA [facility] [id number] [place] [address] 15540- 5715 Oct, [facility] [id number] [place] [address] 33069- 3887 Sep, Arthritis M19.90 [facility] [id number] [place] [address] 35734- 5352 Sep, [facility] [id number] [place] [address] 23240- 7571 Sep, [facility] [id number] [place] [address] 36148- 6374 Sep, Unspecified episodic mood disorder F39 ; Chronic hepatitis C without hepatic coma B18.2 and Left hip pain M25.552 [facility] [address] [place] [address] 73119- 5141 Sep, Arthritis M19.90 and Left hip pain M25.552 [facility] [id number] [place] [address] 53255- 5411 Aug, [facility] [id number] [place] [address] 32675- 1924 Aug, [facility] [id number] [place] [address] 17837- 5942 Aug, Chronic hepatitis C without hepatic coma B18.2 [facility] [id number] [place] [address] 79227- 1020 Aug, [facility] [id number] [place] [address] 12253- 0978 Aug, Chronic hepatitis C without hepatic coma B18.2 [facility] [id number] [place] [address] 48958- 6243 Aug, 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, 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 [facility] [id number] [place] [address] 61895- 6733 Aug, [facility] [id number] [place] [address] 96199- 9948 Aug, Chronic hepatitis C without hepatic coma B18.2 and Hypertension I10 [facility] [id number] [place] [address] 96642- 5816 Jul, [facility] [id number] [place] [address] 97971- 9907 June, [facility] [id number] [place] [address] 54195- 4591 Apr, Fibromyalgia M79.7 ; Left hip pain M25.552 and Decubitus ulcer of sacral region, stage 1 L89.151 [facility] [id number] [place] [address] 79690- 4447 Apr, [facility] [id number] [place] [address] 14316- 6775 Apr, [facility] [id number] [place] [address] 28341- 2251 Feb, [facility] [id number] [place] [address] 42050- 1901 Dec, Anxiety F41.9 ; Combined drug dependence excluding opioids, 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 and Unspecified episodic mood disorder F39 [facility] [id number] [place] [address] 23605- 2731 Dec, [facility] [id number] [place] [address] 39117- 1092 Nov, [facility] [id number] [place] [address] 18862- 8583 Nov, [facility] [id number] [place] [address] 78036- 9716 Nov, Other disorder of impulse control F63.89 and Anxiety F41.9 [facility] [id number] [place] [address] 30590- 6762 Oct, [facility] [id number] [place] [address] 59173 -7697 14 Oct, 2015 Open wound of left thigh, initial encounter S71.102A [facility] [id number] [place] [address] 38657- 5645 Oct, [facility] [id number] [place] [address] 11990- 4572 Sep, Unspecified episodic mood disorder F39 ; Other disorder of impulse control 312.39 ; Combined drug dependence excluding opioids, 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 and Anxiety F41.9 [facility] [id number] [place] [address] 14091- 7843 Sep, Other disorder of impulse control 312.39 ; Combined drug dependence excluding opioids, 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 ; Anxiety F41.9 and Unspecified episodic mood disorder F39 [facility] [address] [place] [address] 40378- 9576 Sep, Other chronic pain G89.29 [facility] [id number] [place] [address] 72284- 9823 Sep, [facility] [id number] [place] [address] 47012- 6943 Sep, [facility] [address], [place] [address]- 4575 Aug, [facility] [id number] [place] [address] 51801- 9252 Aug, [facility] [id number] [place] [address] 00467- 1163 Aug, [facility] [id number] [place] [address] 68237- 0809 Jul, [facility] [id number] [place] [address] 84665- 9480 Jul, [facility] [id number] [place] [address] 57067- 6815 Jul, [facility] [id number] [place] [address] 50349- 6548 Jul, Arthritis M19.90 ; Chronic hepatitis C without hepatic coma B18.2 and Left hip pain M25.552 [facility] [id number] [place] [address] 35680- 4485 Jul, Left knee pain M25.562 [facility] [id number] [place] [address] 82352- 7402 Jul, Combined drug dependence excluding opioids, 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 ; Anxiety F41.9 ; Other disorder of impulse control 312.39 and Unspecified episodic mood disorder F39 [facility] [address] [place] [address] 63378- 8443 Jul, Left knee pain M25.562 [facility] [id number] [place] [address] 40813- 4904 08 Jul, 2015 Left knee pain M25.562 and Left hip pain M25.552 [facility] [id number] [place] [address] 36341- 6202 Jul, [facility] [id number] [place] [address] 33934- 3059 June, [facility] [address] [place] [address] 88395- 4510 June, Combinations of drug dependence excluding opioid type drug, unspecified abuse 304.80 ; Other disorder of impulse control 312.39 ; Unspecified episodic mood disorder F39 and Anxiety F41.9 [facility] [id number] [place] [address] 19270- 2805 June, Other fatigue R53.83 ; Headache R51 and Left knee pain M25.562 [place] [id number] [place] [address] 73350- 9409 June, Unspecified episodic mood disorder F39 ; Combinations of drug dependence excluding opioid type drug, unspecified abuse 304.80 ; Other disorder of impulse control 312.39 and Anxiety F41.9 [place] [id number] [place] [address] 47616- 4892 June, Anxiety F41.9 [place] [id number] [place] [address] 83073- 5241 June, Pain in left knee M25.562 [place] [id number] [place] [address] 14321- 3188 June, Anxiety F41.9 and Combinations of drug dependence excluding opioid type drug, unspecified abuse 304.80 [place] [id number] [place] [address] 34065- 3418 June, Unspecified episodic mood disorder 296.90 ; Combinations of drug dependence excluding opioid type drug, unspecified abuse 304.80 and Other disorder of impulse control 312.39 [place] [id number] [place] [address] 17976- 1685 June, Anxiety F41.9 and Unspecified episodic mood disorder 296.90 [place] [address] [place] [address] 74945- 8899 May, Arthritis M19.90 [facility] [id number] [place] [address] 26512- 5683 May, Arthritis M19.90 [facility] [address] [place] [address] 41676- 5646 May, Anxiety F41.9 ; Combinations of drug dependence excluding opioid type drug, unspecified abuse 304.80 and Other disorder of impulse control 312.39 [facility] [address] [place] [address] 03722- 4439 May, Left knee pain M25.562 [facility] [id number] [place] [address] 25028- 6508 May, Arthritis M19.90 [facility] [id number] [place] [address] 49680- 7705 May, [facility] [id number] [place] [address] 66924- 3781 May, Anxiety F41.9 ; Unspecified episodic mood disorder 296.90 ; Combinations of drug dependence excluding opioid type drug, unspecified abuse 304.80 and Other disorder of impulse control 312.39 [facility] [id number] [place] [address] 26446- 0412 May, Left knee pain M25.562 [facility] [address] [place] [address] 87229- 8407 May, Left knee pain M25.562 ; Combinations of drug dependence excluding opioid type drug, unspecified abuse 304.80 ; Other disorder of impulse control 312.39 ; Fibromyalgia M79.7 ; Hypertension I10 ; Unspecified episodic mood disorder 296.90 and Left hip pain M25.552 [facility] [address] [place] [address] 86735- 0992 May, Unspecified episodic mood disorder 296.90 ; Other disorder of impulse control 312.39 ; Combinations of drug dependence excluding opioid type drug, unspecified abuse 304.80 and Anxiety F41.9 [facility] [address] [place] [address] 21356- 2347 May, Left knee pain M25.562 ; Combinations of drug dependence excluding opioid type drug, unspecified abuse 304.80 ; Other disorder of impulse control 312.39 ; Fibromyalgia M79.7 ; Hypertension I10 ; Unspecified episodic mood disorder 296.90 and Left hip pain M25.552 [facility] [address], [place] [address]- 2226 May, Anxiety F41.9 ; Unspecified episodic mood disorder 296.90 ; Other disorder of impulse control 312.39 and Combinations of drug dependence excluding opioid type drug, unspecified abuse 304.80 [facility] [address] [place] [address] 56743- 3083 30 Apr, 2015 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 and 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, implants and grafts, initial encounter T84.82XA [facility] [id number] [place] [address] 66558- 3304 Apr, Anxiety F41.9 ; Unspecified episodic mood disorder 296.90 ; Combinations of drug dependence excluding opioid type drug, unspecified abuse 304.80 and Other disorder of impulse control 312.39 [facility] [address] [place] [address] 27282- 5048 Apr, Arthritis M19.90 [facility] [address] [place] [address] 70999- 8449 Apr, Anxiety F41.9 ; Unspecified episodic mood disorder 296.90 ; Combinations of drug dependence excluding opioid type drug, unspecified abuse 304.80 and Other disorder of impulse control 312.39 [facility] [address] [place] [address]- 6632 17 Apr, 2015 Arthritis M19.90 [facility] [id number] [place] [address] 74006- 9080 15 Apr, 2015 [facility] [address] [address]- 6553 Apr, [facility] [id number] [place] [address] 74674- 1527 Apr, Unspecified episodic mood disorder 296.90 ; Combinations of drug dependence excluding opioid type drug, unspecified abuse 304.80 ; Other disorder of impulse control 312.39 and Anxiety F41.9 [facility] [id number] [place] [address] 66495 -5801 Apr, Left knee pain M25.562 [facility] [address] 09757- 3343 Apr, [facility] [address] 40933- 5672 Mar, Unspecified episodic mood disorder 296.90 ; Anxiety F41.9 ; Other disorder of impulse control 312.39 and Combinations of drug dependence excluding opioid type drug, unspecified abuse 304.80 [facility] [id number] [place] [address] 05116- 7211 Mar, Hyperpigmentation L81.9 [facility] [address] 80944- 4109 Mar, Arthritis M19.90 and Anxiety F41.9 [place] [address] 96593- 5786 Mar, Unspecified episodic mood disorder F39 ; Combined drug dependence excluding opioids, 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 ; Other disorder of impulse control F63.89 and Anxiety F41.9 [facility] [address] 11106- 4947 12 Mar, 2015 Well woman exam Z01.419 ; Other fatigue R53.83 ; Hot flashes N95.1 ; Depression, unspecified depression type F32.9 and Body mass index (BMI) of 23.0-23.9 in adult Z68.23 [place] [address] 32370- 9042 11 Mar, 2015 Unspecified episodic mood disorder 296.90 ; Other disorder of impulse control 312.39 and Anxiety F41.9 [place] [address] 10157- 6045 11 Mar, 2015 Well woman exam Z01.419 [...] Z12.39 and Limited mobility Z74.09 [place] [address] 27531- 7498 Mar, [place] [address] 71035- 9560 Mar, [place] [address] 34875- 9523 Mar, [address] 12546- 2897 Mar, Other specified complication of internal orthopedic prosthetic devices, implants and grafts, initial encounter T84.89XA ; Fibromyalgia M79.7 ; Hypertension I10 ; Anemia D64.9 ; Insomnia G47.00 ; Anxiety F41.9 ; Arthritis M19.90 and Migraine G43.909 [place] [address] 22144- 4556 Mar, [place] [address] 56929- 5263 Feb, [place] [address] 83839- 5168 Feb, Arthritis M19.90 and Anxiety F41.9 [place] [id number] [address]- 4764 Feb, [facility] [address], [place] [address]- 8496 Feb, [facility] [address] [address]- 1150 Feb, [facility] [address] [address]- 2160 Feb, [facility] [address] [id number] [place] [address] Feb, Anxiety F41.9 [facility] [id number] [place] [address], [place] [address]- 7887 Feb, [facility] [address], [place] [address] Feb, [facility] [address], [place] [address] 6977 Feb, 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 and Fibromyalgia M79.7 [facility] [address], [place] [address] 6978 Feb, [facility] [address], [place] [address] 5587 Jan, [facility] [address], [place] [address] 2839 Jan, [facility] [address], [place] [address]- 7596 Jan, [facility] [address], [place] [address]- 2873 24 Jan, 2015 [facility] [address], [place] [address]- 2348 16 Jan, 2015 [facility] [address], [place] [address]- 5764 08 Jan, 2015 [facility] [id number], [place] [address] 0569 Jan, [facility] [id number] [place] [address] 934153- 8684 Jan, [facility] [id number] [place] [address]- 4239 Dec, [facility] [id number] [place] [address] 998471- 0069 Dec, Left knee pain M25.562 [facility] [id number] [place] [address] 128584- 5780 Dec, Left knee pain M25.562 [facility] [id number] [place] [address]- 4443 Dec, Fibromyalgia M79.7 ; Hypertension I10 and Arthritis M19.90 [facility] [id number] [place] [address]14- 7707 Dec, [facility] [id number] [place] [address]14- 7682 Dec, [facility] [id number] [place] [address]- 9655 Dec, [facility] [id number] [place] [address]- 9306 Dec, [facility] [id number] [place] [address]- 4915 Nov, [facility] [id number] [place] [address] 21360- 6883 Nov, [facility] [id number] [place] [address]- 8625 Nov, [facility] [id number] [place] [address]- 5586 Nov, Hypertension I10 [facility] [id number] [place] [address] 268455- 4788 Oct, [facility] [address] [id number] [place] [address]- 0883 Oct, 2014 [facility] [place] [facility] [address] [id number] [place] [address]- 7673 Oct, 2014 [facility] [place] [facility] [address] [id number] [place] [address]- 6335 Oct, 2014 [facility] [place] [facility] [address] [id number] [place] [address]- 8225 Oct, [facility] [place] [facility] [address] [id number] [place] [address]- 3155 Sep, [facility] [place] [facility] [address] [id number] [place] [address]- 7797 Sep, [facility] [address] [id number] [place] [address]- 3991 Sep, Hip pain associated with recalled total hip arthroplasty hardware 996.77 [facility] [place] [facility] [address] [id number] [place] [address]- 9975 Sep, [facility] [place] [facility] [address] [id number] [place] [address]- 4228 Sep, [facility] [place] [facility] [address] [id number] [place] [address]- 9844 Sep, [facility] [place] [facility] [address] [id number] [place] [address]- 7115 Aug, [facility] [place] [facility] [address] [id number], [place] [address]- 6203 Jul, [facility] [place] [facility] [address] [id number] [place] [address]- 7619 June, [facility] [place] [facility] [address] [id number] [place] [address]- 8459 June, [facility] [place] [facility] [address] [id number], [place] [address]- 9670 June, [facility] [place] [facility] [address] [id number] [place] [address]- 3691 June, [facility] [place] [facility] [address] [id number] [place] [address]- 7514 June, [facility] [place] [facility] [address] [id number] [place] [address]- 6936 June, [facility] [place] [facility] [address] [id number] [place] [address]- 2344 May, [facility] [place] [facility] [address] [id number] [place] [address]- 2881 May, [facility] [place] [facility] [address] [id number] [place] [address]- 7771 May, [facility] [place] [facility] [address] [id number] [place] [address]- 4779 Apr, [facility] [place] [facility] [address] [id number] [place] [address]- 8338 30 Apr, 2014 [facility] [place] [facility] [address] [id number] [place] [address]- 2329 Apr, [facility] [place] [facility] [address] [id number] [place] [address]- 8755 Apr, [facility] [place] [facility] [address] [id number] [place] [address]- 2937 Apr, [facility] [place] [facility] [address] [id number] [place] [address]- 6271 Apr, [facility] [place] [facility] [address] [id number] [place] [address]- 6604 Apr, [facility] [place] [facility] [address] [id number] [place] [address]- 4149 12 Apr, 2014 [facility] [place] [facility] [address] [id number] [place] [address]- 4399 10 Apr, 2014 [facility] [place] [facility] [address] [id number] [place] [address]- 3436 Apr, [facility] [place] [facility] [address] [id number] [place] [address]- 0443 Apr, [facility] [place] [facility] [address] [id number] [place] [address]- 1173 Mar, 2014 [facility] [place] [facility] [address] [id number] [place] [address]- 4306 Mar, 2014 [facility] [place] [facility] [address] [id number] [place] [address]- 1758 Mar, 2014 [facility] [place] [facility] [address] [id number] [place] [address]- 9261 Mar, 2014 [facility] [place] [facility] [address] [facility] [id number] [place] [address]- 5020 Mar, [facility] [place] [facility] [address] [facility] [id number] [place] [address]- 7860 Mar, [facility] [place] [facility] [address] [facility] [id number] [place] [address]- 3729 Feb, [facility] [place] [facility] [address] [facility] [id number] [place] [address]- 1490 Feb, [facility] [place] [facility] [address] [facility] [id number] [place] [address]- 6812 Feb, [facility] [place] [facility] [address] [facility] [id number] [place] [address]- 2901 Feb, [facility] [place] [facility] [address] [id number] [place] [address]- 8108 Jan, [facility] [place] [facility] [address] [id number] [place] [address]- 6503 Jan, [facility] [place] [facility] [address] [facility] [id number] [place] [address]- 2988 Jan, [facility] [place] [facility] [address] [facility] [id number] [place] [address]- 5195 Jan, [facility] [place] [facility] [address] [id number] [place] [address]- 8004 Dec, [facility] [place] [facility] [address] [id number] [place] [address]- 0012 Dec, [facility] [place] [facility] [address] [id number] [place] [address]- 7707 Dec, [facility] [place] [facility] [address] [id number] [place] [address]- 9755 Dec, [facility] [place] [facility] [address] [id number] [place] [address]- 1112 Dec, [facility] [place] [facility] [address] [id number] [place] [address]- 0995 Dec, [facility] [place] [facility] [address] [id number] [place] [address]- 9681 Dec, [facility] [place] [facility] [address] [id number] [place] [address]- 4509 Dec, [facility] [place] [facility] [address] [id number] [place] [address]- 1198 Dec, [facility] [place] [facility] [address] [id number] [place] [address]- 2818 Dec, [facility] [place] [facility] [address] [id number] [place] [address]- 6633 Dec, [facility] [place] [facility] [address] [id number] [place] [address]- 1774 Nov, [facility] [place] [facility] [address] [id number] [place] [address]- 6179 Nov, [facility] [place] [facility] [address] [id number] [place] [address]- 6566 Nov, [facility] [place] [facility] [address] [id number] [place] [address]- 1467 Nov, [facility] [place] [facility] [address] [id number] [place] [address]- 4003 17 Nov, 2013 [facility] [place] [facility] [address] [id number] [place] [address]- 4929 15 Nov, 2013 [facility] [place] [facility] [address] [id number] [place] [address]- 2218 15 Nov, 2013 [facility] [place] [facility] [address] [id number] [place] [address]- 8437 15 Nov, 2013 [facility] [place] [facility] [address] [id number] [place] [address]- 2369 15 Nov, 2013 [facility] [place] [facility] [address] [id number] [place] [address]- 3641 14 Nov, 2013 [facility] [place] [facility] [address] [id number] [place] [address]- 0384 14 Nov, 2013 [facility] [place] [facility] [address] [id number] [place] [address]- 2652 14 Nov, 2013 [facility] [place] [facility] [address] [id number], [place] [address]- 8914 14 Nov, 2013 [facility] [place] [facility] [address] [id number], [place] [address]- 6741 13 Nov, 2013 [facility] [place] [facility] [address] [id number], [place] [address]- 3699 13 Nov, 2013 [facility] [place] [facility] [address] [id number], [place] [address]- 0967 11 Nov, 2013 [facility] [place] [facility] [address] [id number], [place] [address]- 2156 11 Nov, 2013 [facility] [place] [facility] [address] [id number], [place] [address]- 5053 07 Nov, 2013 [facility] [place] [facility] [address] [id number], [place] [address]- 8674 07 Nov, 2013 [facility] [place] [facility] [address] [id number], [place] [address]- 7652 07 Nov, 2013 [facility] [place] [facility] [address] [id number] [place] [address]- 6076 07 Nov, 2013 [facility] [place] [facility] [address] [id number] [place] [address] 2546 30 Sep, 2013 [facility] [place] [facility] [address] [id number] [place] [address] 2546 30 Oct, 2013 [facility] [place] [facility] [address] [id number] [place] [address] 2549 26 Oct, 2013 [facility] [place] [facility] [address] [id number] [place] [address] 2545 26 Oct, 2013 [facility] [place] [facility] [address] [id number] [place] [address]- 4137 22 Oct, 2013 [facility] [place] [facility] [address] [id number] [place] [address]- 0260 22 Oct, 2013 [facility] [place] [facility] [address] [id number] [place] [address]- 1359 18 Oct, 2013 [facility] [place] [facility] [address] [id number] [place] [address]- 2545 18 Oct, 2013 [facility] [place] [facility] [address] [id number] [place] [address] 2548 18 Oct, 2013 [facility] [place] [facility] [address] [id number] [place] [address]- 2541 18 Oct, 2013 [facility] [place] [facility] [address] [id number] [place] [address] 2544 12 Oct, 2013 [facility] [place] [facility] [address] [id number] [place] [address]- 2547 12 Oct, 2013 [facility] [place] [facility] [address] [id number] [place] [address] 2543 03 Oct, 2013 [facility] [place] [facility] [address] [id number] [place] [address]- 2545 Oct, 2013 [facility] [place] [facility] [address] [id number] [place] [address]- 2064 Sep, [facility] [place] [facility] [address] [id number] [place] [address]- 6041 Sep, [facility] [place] [facility] [address] [id number] [place] [address]- 7124 Sep, [facility] [place] [facility] [address] [id number] [place] [address]- 7460 Sep, [facility] [place] [facility] [address] [id number] [place] [address]- 4870 Sep, [facility] [place] [facility] [address] [id number] [place] [address]- 1475 Sep, [facility] [place] [facility] [address] [id number] [place] [address]- 9878 Sep, [facility] [place] [facility] [address] [id number] [place] [address]- 8887 Sep, [facility] [place] [facility] [address] [id number] [place] [address]- 3770 Sep, [facility] [place] [facility] [address] [id number] [place] [address]- 0857 Sep, [facility] [place] [facility] [address] [id number] [place] [address]- 1469 Sep, [facility] [place] [facility] [address] [id number] [place] [address]- 5876 Sep, [facility] [place] [facility] [address] [id number] [place] [address]- 5846 Sep, [facility] [place] [facility] [address] [id number] [place] [address]- 3072 Sep, [facility] [place] [facility] [address] [id number] [place] [address]- 7212 Sep, [facility] [place] [facility] [address] [id number] [place] [address]- 9190 Sep, [facility] [place] [facility] [address] [id number] [place] [address]- 2857 Sep, [facility] [place] [facility] [address] [id number] [place] [address]- 6379 Sep, [facility] [place] [facility] [address] [id number] [place] [address]- 5502 Aug, [facility] [place] [facility] [address] [id number] [place] [address]- 9793 Aug, [facility] [place] [facility] [address] [id number] [place] [address]- 0992 Aug, [facility] [place] [facility] [address] [id number] [place] [address]- 0682 Aug, [facility] [place] [facility] [address] [id number] [place] [address]- 6342 Aug, [facility] [place] [facility] [address] [id number] [place] [address]- 9388 Aug, [facility] [place] [facility] [address] [id number] [place] [address]- 5974 Jul, [facility] [place] [facility] [address] [id number] [place] [address]- 1636 Jul, [facility] [place] [facility] [address] [id number] [place] [address]- 8208 Jul, [facility] [place] [facility] [address] [id number] [place] [address]- 4470 Jul, [facility] [place] [facility] [address] [id number] [place] [address]- 2505 June, [facility] [place] [facility] [address] [id number] [place] [address]- 3313 June, [facility] [place] [facility] [address] [id number] [place] [address]- 2738 June, [facility] [place] [facility] [address] [id number] [place] [address]- 4977 June, [facility] [place] [facility] [address] [id number] [place] [address]- 3298 June, [facility] [address] [id number] [place] [address]- 9978 June, [facility] [place] [facility] [address] [id number] [place] [address]- 0826 June, [facility] [address] [id number] [place] [address]- 2375 May, [facility] [place] [facility] [address] [id number] [place] [address]- 4181 May, [facility] [address] [id number] [place] [address]- 9720 May, [facility] [place] [facility] [address] [id number] [place] [address]- 6874 May, [facility] [place] [facility] [address] [id number] [place] [address]- 7964 May, [facility] [address] [id number] [place] [address]- 4352 May, [facility] [place] [facility] [address] [id number] [place] [address]- 9959 31 Apr, 2013 [facility] [address] [id number] [place] [address]- 3625 31 Apr, 2013 [facility] [place] [facility] [address] [id number] [place] [address]- 3664 28 Apr, 2013 [facility] [place] [facility] [address] [id number] [place] [address]- 3798 28 Apr, 2013 [facility] [place] [facility] [address] [id number] [place] [address]- 0454 14 Apr, 2013 [facility] [place] [facility] [address] [id number] [place] 6960 14 Apr, 2013 [facility] [place] [facility] [address] [id number] [place] [address]- 8743 Apr, [facility] [place] [facility] [address] [id number] [place] [address]- 0675 Apr, [facility] [place] [facility] [address] [id number] [place] [address]- 3316 Apr, [facility] [place] [facility] [address] [id number] [place] [address]- 6794 Apr, [facility] [place] [facility] [address] [id number] [place] [address]- 8358 Apr, [facility] [place] [facility] [address] [id number] [place] [address]- 6644 Apr, [facility] [place] [facility] [address] [id number] [place] [address]- 4214 Apr, [facility] [place] [facility] [address] [id number] [place] [address]- 8871 Apr, [facility] [place] [facility] [address] [id number] [place] [address]- 3244 Mar, [facility] [place] [facility] [address] [id number] [place] [address]- 4436 Mar, [facility] [place] [facility] [address] [id number] [place] [address]- 6452 Mar, [facility] [place] [facility] [address] [id number] [place] [address]- 3006 Feb, [facility] [place] [facility] [address] [id number] [place] [address]- 4634 Feb, [facility] [place] [facility] [address] [id number] [place] [address]- 4086 Feb, [facility] [place] [facility] [address] [id number] [place] [address]- 1703 Feb, [facility] [place] [facility] [address] [id number] [place] [address]- 0474 Feb, [facility] [place] [facility] [address] [id number] [place] [address]- 2311 Feb, [facility] [address] [id number] [place] [address]- 6021 Feb, [facility] [address] [id number] [place] [address] Feb, [facility] [address] [id number] [place] [address]67 Feb, [facility] [address] [id number] [place] [address] Feb, [facility] [address] [id number] [place] [address] Jan, [facility] [address] [id number] [place] [address] Jan, [facility] [address] [id number] [place] [address] Jan, [facility] [address] [id number] [place] [address] Jan, [facility] [address] [id number] [place] [address]67 Jan, [facility] [address] [id number] [place] [address] Jan, [facility] [address] [id number] [place] [address]773 Jan, [facility] [place] [facility] [address] [id number] [place] [address]44 Jan, [facility] [place] [facility] [address] [id number] [place] [address] Jan, [facility] [place] [facility] [address] [id number] [place] [address] Jan, [facility] [address] [id number] [place] [address]- [address]72 17 Jan, 2013 [facility] [place] [facility] [address] [id number] [place] [address] Jan, [facility] [address] [id number] [place] [address] Jan, [facility] [place] [address] [id number] [place] [address] Jan, [facility] [address] [id number] [place] [address]- 8431 Jan, [facility] [address] [id number] [place] [address]- 117[address] Jan, [facility] [address] [id number] [place] [address] 9[address] Jan, [facility] [address] [id number] [place] [address] Jan, [facility] [address] [id number] [place] [address] Jan, [facility] [address] [id number] [place] [address] Jan, [facility] [address] [id number] [place] [address] 60[address] Jan, [facility] [address] [id number] [place] [address] 9414 Dec, [facility] [place] [facility] [address] [id number] [place] [address] Dec, [facility] [place] [facility] [address] [id number] [place] [address] Dec, [facility] [place] [facility] [address] [id number] [place] [address] 6[address] Dec, [facility] [place] [facility] [address] [id number] [place] [address] 4569 Dec, [facility] [place] [facility] [address] [id number] [place] [address] Dec, [facility] [place] [facility] [address] [id number] [place] [address] 1568 Dec, [facility] [place] [facility] [address] [id number] [place] [address] 4360 Dec, [facility] [place] [facility] [address] [id number] [place] [address] 0671 Dec, [facility] [place] [facility] [address] [id number] [place] [address] Dec, [facility] [place] [facility] [address] [id number] [place] [address] 6479 Nov, [facility] [place] [facility] [address] [id number] [place] [address] 6874 Nov, [facility] [place] [facility] [address] [id number], [place] [address] Nov, [facility] [place] [facility] [address] [id number], [place] [address] Nov, [facility] [place] [facility] [address] [id number], [place] [address]- [address] Nov, [facility] [place] [facility] [address] [id number] [place] [address] 1582 Nov, [facility] [place] [facility] [address] [id number], [place] [address] Nov, [facility] [place] [facility] [address] [id number], [place] [address] Nov, [facility] [place] [facility] [address] [id number], [place] [address]- [address] 10 Nov, 2012 [facility] [place] [facility] [address] [id number], [place] [address] Nov, [facility] [place] [facility] [address] [id number] [place] [address]- 8427 Oct, [facility] [place] [facility] [address] [id number] [place] [address]- [address] Oct, [facility] [address] [id number] [place] [address] 3418 Oct, [facility] [address] [id number] [place] [address]016 Oct, [facility] [address] [id number] [place] [address]- 2688 Oct, [facility] [address] [id number] [place] [address]- 5483 Sep, [facility] [address] [id number] [place] [address] Sep, [facility] [address] [id number] [place] [address]256 Aug, [facility] [address] [id number] [place] [address]- 2580 Aug, [facility] [address] [id number] [place] [address] 9[address] Aug, [facility] [address] [id number] [place] [address]- 6906 Aug, [facility] [address] [id number] [place] [address]- 0417 Aug, [facility] [address] [id number] [place] [address]- 6314 Aug, [facility] [address] [id number] [place] [address]- 2547 Aug, [facility] [place] [facility] [address] [id number] [place] [address]- 66[address] Jul, [facility] [place] [facility] [address] [id number] [place] [address]- [address]46 Jul, [facility] [address] [id number] [place] [address] June, [facility] [address] [address] [id number] [place] [address] June, [facility] [address] [id number] [place] [address] June, [facility] [address] [id number] [place] [address] June, [facility] [address] [id number] [place] [address] June, [facility] [address] [id number] [place] [address] June, [facility] [address] [id number] [place] [address] June, [facility] [address] [id number] [place] [address] June, [facility] [address] [id number] [place] [address] 15[address] June, [facility] [address] [id number] [place] [address] June, [facility] [address] [id number] [place] [address] 134[address] June, [facility] [address] [id number] [place] [address] May, [facility] [place] [facility] [address] [id number] [place] [address] 4[address] May, [facility] [place] [facility] [address] [id number] [place] [address] 9[address] May, [facility] [place] [facility] [address] [id number] [place] [address]62 May, [facility] [place] [facility] [address] [id number] [place] [address] Apr, [facility] [place] [facility] [address] [id number] [place] [address] 42[address] Apr, [facility] [address] [id number] [place] [address] 8758 Apr, [facility] [address] [id number] [place] [address] 8826 Mar, [facility] [address] [id number] [place] [address] 4136 Mar, [facility] [address] [id number] [place] [address] 0101 Feb, [facility] [address] [id number] [place] [address] 1010 Feb, [facility] [address] [id number] [place] [address] 8505 Feb, [facility] [address] [id number] [place] [address] 6085 Feb, [facility] [address] [id number] [place] [address] 9288 Feb, [facility] [address] [id number] [place] [address] 7790 Feb, [facility] [address] [facility] [id number] [place] [address] 6995 Feb, [facility] [address] [id number] [place] [address] 31 Jan, 2012 [facility] [address] [id number] [place] [address] 7[address] 31 Jan, 2012 [facility] [address] [id number] [place] [address]30 28 Jan, 2012 [facility] [address] [id number] [place] [address] 3613 17 Jan, 2012 [facility] [address] [id number] [place] [address] 2486 17 Jan, 2012 [facility] [place] [facility] [address] [id number] [place] [address] 0769 Jan, [facility] [place] [facility] [address] [id number] [place] [address]- 2[address] Jan, [facility] [place] [facility] [address] [id number] [place] [address] 0146 Jan, [facility] [place] [facility] [address] [id number] [place] [address] 9756 Jan, [facility] [place] [facility] [address] [id number] [place] [address] 8[address] Jan, [facility] [place] [facility] [address] [id number] [place] [address]- 6911 Jan, [facility] [place] [facility] [address] [id number] [place] [address]- 5431 Dec, [facility] [place] [facility] [address] [id number] [place] [address] 6441 Dec, [facility] [place] [facility] [address] [id number] [place] [address]- 4[address] Dec, [facility] [place] [facility] [address] [id number] [place] [address]- 3384 Dec, [facility] [place] [facility] [address] [id number] [place] [address]- 0871 Nov, [facility] [place] [facility] [address] [id number] [place] [address]- 9321 Nov, [facility] [place] [facility] [address] [id number] [place] [address]- 5880 Nov, [facility] [place] [facility] [address] [id number] [place] [address] 8701 Oct, [facility] [place] [facility] [address] [id number] [place] [address]- 4343 24 Oct, 2011 [facility] [place] [facility] [address] [id number] [place] [address]- 5588 21 Oct, 2011 [facility] [place] [facility] [address] [id number] [place] [address] 1926 10 Oct, 2011 [facility] [place] [facility] [address] [id number] [place] [address]- 4706 07 Oct, 2011 [facility] [place] [facility] [address] [id number] [place] [address]- 7446 Oct, [facility] [place] [facility] [address] [id number] [place] [address]- 1077 04 Oct, 2011 [facility] [place] [facility] [address] [id number] [place] [address] Sep, [facility] [place] [facility] [address] [id number] [place] [address]- 8169 Sep, [facility] [place] [facility] [address] [id number] [place] [address]- 1677 Sep, [facility] [place] [facility] [address] [id number] [place] [address]- 1010 Sep, [facility] [place] [facility] [address] [id number] [place] [address]- 2075 Sep, [facility] [place] [facility] [address] [id number] [place] [address]- 0612 Aug, [facility] [place] [facility] [address] [id number] [place] [address]- 1452 Aug, [facility] [place] [facility] [address] [id number] [place] [address]- 9020 Aug, [facility] [place] [facility] [address] [id number] [place] [address]- 9446 16 Aug, 2011 [facility] [place] [facility] [address] [id number] [place] [address]- 4629 Aug, [facility] [place] [facility] [address] [id number] [place] [address]- 3406 Aug, [facility] [place] [facility] [address] [id number] [place] [address]- 4108 Aug, [facility] [address] [id number] [place] [address]- 1085 Jul, [facility] [place] [facility] [address] [id number] [place] [address]- 8049 Jul, [facility] [address] [id number] [place] [address]- 8897 Jul, [facility] [place] [facility] [address] [id number] [place] [address]- 3417 Jul, [facility] [address] [id number] [place] [address]- 2993 Jul, [facility] [address] [id number] [place] [address]- 0903 Jul, [facility] [address] [id number] [place] [address]- 3253 Jul, [facility] [address] [id number] [place] [address]- 5354 Jul, [facility] [place] [facility] [address] [id number] [place] [address]- 0110 Jul, [facility] [address] [id number] [place] [address]- 3976 June, [facility] [place] [facility] [address] [id number] [place] [address]- 3544 June, [facility] [place] [facility] [address] [id number] [place] [address]- 1813 June, [facility] [place] [facility] [address] [id number] [place] [address]- 2518 June, [facility] [place] [facility] [address] [id number] [place] [address]- 7627 June, [facility] [place] [facility] [address] [id number] [place] [address]- 8608 June, [facility] [place] [facility] [address] [id number] [place] [address]- 2446 10 Jun, 2011 [facility] [place] [facility] [address] [id number] [place] [address]- 5505 June, [facility] [place] [facility] [address] [id number] [place] [address]- 1017 25 May, 2011 [facility] [place] [facility] [address] [id number] [place] [address]- 8636 23 May, 2011 [facility] [address] [id number] [place] [address]- 1122 20 May, 2011 [facility] [place] [facility] [address] [id number] [place] [address]- 3933 May, [facility] [address] [id number] [place] [address]- 8698 16 May, 2011 [facility] [address] [id number] [place] [address]- 3457 16 May, 2011 [facility] [place] [facility] [address] [id number] [place] [address]- 8207 May, [facility] [place] [facility] [address] [id number] [place] [address]- 2276 27 Apr, 2011 [facility] [place] [facility] [address] [id number] [place] [address]- 0197 Apr, [facility] [place] [facility] [address] [id number] [place] [address]- 5570 Apr, [facility] [place] [facility] [address] [id number] [place] [address]- 8747 Apr, [facility] [place] [facility] [address] [id number] [id number] [address] Apr, [facility] [place] [facility] [address] [id number] [place] [address]- 3710 06 Apr, 2011 [facility] [place] [facility] [address] [id number] [place] [address]- 8456 Apr, [facility] [address] [id number] [place] [address]- 5216 Mar, [facility] [place] [facility] [address] [id number] [place] [address]- 6856 Mar, [facility] [place] [facility] [address] [id number] [place] [address]- 0616 14 Mar, 2011 [facility] [place] [facility] [address] [id number] [place] [address]- 1066 13 Mar, 2011 [facility] [place] [facility] [address] [id number] [place] [address]- 8666 Mar, [facility] [place] [facility] [address] [id number] [place] [address]- 3286 Mar, [facility] [address] [id number] [place] [address]- 6203 Mar, [facility] [address] [id number] [place] [address]- 5458 Feb, [facility] [place] [facility] [address] [id number] [place] [address]- 8506 Feb, [facility] [address] [facility] [id number] [place] [address]- 7258 Feb, [facility] [place] [facility] [address] [id number] [place] [address]- 4576 Feb, [facility] [place] [facility] [address] [id number] [place] [address]- 8291 Feb, [facility] [place] [facility] [address] [id number] [place] [address]- 7472 Feb, [facility] [place] [facility] [address] [id number] [place] [address]- 8886 Feb, [facility] [place] [facility] [address] [id number] [place] [address]- 9192 Feb, [facility] [place] [facility] [address] [id number] [place] [address]- 6104 Feb, [facility] [address] [id number] [place] [address]- 7050 Feb, [facility] [address] [id number] [place] [address]- 0928 Jan, [facility] [address] [id number] [place] [address]- 2728 Jan, [facility] [address] [id number] [place] [address]- 6365 Jan, [facility] [address] [id number] [place] [address]- 8110 Jan, [facility] [address] [id number] [place] [address]- 2441 Jan, [facility] [address] [id number] [place] [address]- 7107 Jan, [facility] [address] [id number] [place] [address]- 4598 Jan, [facility] [address] [id number] [place] [address]- 5405 Jan, [facility] [address] [id number] [place] [address]- 7187 Jan, [facility] [address] [id number] [place] [address]- 4819 Jan, [facility] [place] [facility] [address] [id number] [place] [address]- 5242 Jan, [facility] [place] [facility] [address] [id number] [place] [address]- 1756 Dec, [facility] [place] [facility] [address] [id number] [place] [address]- 5656 Dec, [facility] [place] [facility] [address] [id number] [place] [address]- 1343 17 Dec, 2010 [facility] [place] [facility] [address] [id number] [place] [address]- 5792 16 Dec, 2010 [facility] [place] [facility] [address] [id number] [place] [address]- 3054 14 Dec, 2010 [facility] [place] [facility] [address] [id number] [place] [address]- 9421 Dec, [facility] [place] [facility] [address] [id number] [place] [address]- 1204 08 Dec, 2010 [facility] [place] [facility] [address] [id number] [place] [address]- 8381 Dec, [facility] [place] [facility] [address] [id number] [place] [address]- 3252 Dec, [facility] [place] [facility] [address] [id number] [place] [address]- 9415 Nov, [facility] [place] [facility] [address] [id number] [place] [address]- 3375 Nov, [facility] [place] [facility] [address] [id number] [place] [address]- 4692 Nov, [facility] [place] [facility] [address] [id number] [place] [address]- 0106 24 Nov, 2010 [facility] [place] [facility] [address] [id number], [place] [address]- 2478 24 Nov, 2010 [facility] [place] [facility] [address] [id number] [place] [address]- 8459 13 Nov, 2010 [facility] [place] [facility] [address] [id number] [place] [address]- 6042 Aug, [facility] [place] [facility] [address] [id number] [place] [address]- 6145 14 Feb, 2010 [facility] [place] [facility] [address] [id number] [place] [address]- 0055 14 Jan, 2010 [facility] [place] [facility] [id number], [place] [address]- 9126 Jan, [facility] [id number], [place] [address]- 3288 Jan, [facility] [id number] [address] Jan, [facility] [id number], [place] [address]- 4717 Jan, [facility] [id number], [place] [address]- 3255 Dec, [facility] [id number] [place] [address]- 9525 Dec, [facility] [id number]287 Dec, [facility] [id number] [place] [address]- 0833 Dec, [facility] [id number], [place] [address]- 4924 Nov, [facility] [id number], [place] [address]- 0082 Nov, [facility] [id number], [place] [address]- 5020 Nov, IMMUNIZATIONS Vaccine Route Administration Date Status TWINRIX (HEP A/B) IM Intramuscular Jan 17, 2017 Administered SOCIAL HISTORY Never Assessed REASON FOR VISIT Hip f/u , PT has concerns with a wound on back of her right leg and PT needs her Twinrix injection via Jesus order, Heartburn or indigestion keeping her awake. [facility] PLAN OF CARE Activity Details Follow Up 3 Months Reason: VITAL SIGNS Height 68 in 2017-01-17 Weight 180.2 lbs 2017-01-17 Temperature 97.5 degrees Fahrenheit 2017-01-17 Heart Rate 76 bpm 2017-01-17 Respiratory Rate 18 2017-01-17 BMI 27.40 kg/m2 2017-01-17 Blood pressure systolic 100 mmHg 2017-01-17 Blood pressure diastolic 60 mmHg 2017-01-17 MEDICATIONS Medication Instructions Dosage Frequency Start Date End Date Duration Status Fentanyl 50 MCG/HR Transdermal 72hrs 1 patch to skin Jan, 30 days Active Lyrica 100 MG TAKE ONE CAPSULE BY MOUTH THREE TIMES DAILY 30 Unknown Clonidine HCl 0.1 MG Orally twice a day 1 tablet 12h 30 Active Klonopin 1 MG Orally 3 times a day 1 tablet 8h 30 days Active Furosemide 20 MG Orally Once a day ONE TABLET 24h 30 Active Lyrica 150 MG Orally 3 times a day 1 capsule 8h Active Fluoxetine HCl 40 mg Orally Once a day 2 capsule in the morning 24h 30 Active Epclusa 400-100 MG Orally Once a day 1 tablet 24h 12 Weeks Not- Taking Pantoprazole Sodium 40 mg Orally Once a day 1 tablet 24h 30 days Active Nabumetone 500 MG Orally Twice a day 1 tablet 12h 30 Active Sumatriptan Succinate 100 mg Orally Once a day 1 tablet as needed one time 24h 30 Active Promethazine HCl 25 MG Orally every 12 hrs 1 tablet as needed 12h 30 Active Aspirin 81 MG Orally Once a day 1 tablet 24h 30 Active Cyclobenzaprine HCl 10 MG TAKE ONE TABLET BY MOUTH THREE TIMES DAILY 30 Active RESULTS No Results PROCEDURES Procedure Date Ordered Result Body Site TWINRIX (HEP A/B) Jan 17, 2017 SINGLE IMMUNIZATION ADMIN Jan 17, 2017 INSTRUCTIONS MEDICATIONS ADMINISTERED No Known Medications [...]
--- OUTSIDE RECORDS SUMMARY | 2018-01-13 22:16 | XMS REPORT ---
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 Active 83395510 Problem Unspecified episodic mood disorder F39 Active 82448038 Problem Hypertension I10 Active 89579708 Problem Venous insufficiency (chronic) (peripheral) I87.2 Active 252319372 Problem Gastroesophageal reflux disease, esophagitis presence not specified K21.9 Active 360729515 Problem Other chronic pain G89.29 Active 54187272 Problem Chronic hepatitis C without hepatic coma B18.2 Active 247141869 Problem Other psychoactive substance dependence, uncomplicated F19.20 Active 9377360 Problem 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, 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 406823097 ALLERGIES No Information ENCOUNTERS Encounter Location Date Diagnosis [facility] [id number] [place] [address] 96020- 1873 May, Arthritis M19.90 [facility] [id number] [place] [address] 48491 -5193 May, Dysuria R30.0 ; Abscess L02.91 and Acute cystitis without hematuria N30.00 [facility] [id number] [place] [address] 46299- 7813 May, 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 ; Unspecified episodic mood disorder F39 ; Combined drug dependence excluding opioids, 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 ; Anxiety F41.9 and Other psychoactive substance dependence, uncomplicated F19.20 [facility] [id number] [place] [address] 31590- 2708 May, [facility] [id number] [place] [address] 80594- 6700 May, 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 ; Unspecified episodic mood disorder F39 ; Combined drug dependence excluding opioids, 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 ; Other psychoactive substance dependence, uncomplicated F19.20 and Anxiety F41.9 [facility] [id number] [place] [address] 50553- 7079 May, Other chronic pain G89.29 ; Left hip pain M25.552 ; Hypertension I10 ; 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, 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 and Unspecified episodic mood disorder F39 [facility] [id number] [place] [address] 60581- 5979 Apr, [facility] [id number] [place] [address] 32901 -4785 Apr, Neck pain M54.2 ; Left hip pain M25.552 and Fall, initial encounter W19.XXXA [facility] [id number] [place] [address] 55317- 4900 Apr, Unspecified episodic mood disorder F39 ; Combined drug dependence excluding opioids, 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 ; Anxiety F41.9 ; Other psychoactive substance dependence, uncomplicated F19.20 and Other disorder of impulse control F63.89 [facility] [id number] [place] [address] 33730- 6748 Apr, [facility] [id number] [place] [address] 00294- 6399 Apr, Arthritis M19.90 and Unspecified episodic mood disorder F39 [facility] [id number] [place] [address] 79779- 5575 Apr, Unspecified episodic mood disorder F39 [facility] [address] [place] [address] 6277 13 Apr, 2017 [facility] [id number] [place] [address] 56236- 8669 Apr, [facility] [id number] [place] [address] 66745- 8427 Apr, Unspecified episodic mood disorder F39 ; Combined drug dependence excluding opioids, 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 ; Anxiety F41.9 ; Other psychoactive substance dependence, uncomplicated F19.20 and Other disorder of impulse control F63.89 [facility] [id number] [place] [address] 84470- 4581 Mar, Unspecified episodic mood disorder F39 [facility] [id number] [place] [address] 60143- 5583 Mar, Gastroesophageal reflux disease, esophagitis presence not specified K21.9 [facility] [address] 57005- 9990 Mar, Arthritis M19.90 and Unspecified episodic mood disorder F39 [facility] [id number] [place] [address] 58077- 1308 Feb, [facility] [id number] [place] [address] 04804- 5318 Feb, [facility] [id number] [place] [address] 14335- 5503 Feb, [facility] [id number] [place] [address] 43880- 3857 Feb, Arthritis M19.90 [facility] [id number] [place] [address] 45289- 1482 Feb, Non-pressure chronic ulcer of right calf, 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 ; Unspecified episodic mood disorder F39 and Left hip pain M25.552 [facility] [id number] [place] [address] 90643- 0381 Feb, [facility] [address] [address]- 2490 Feb, [facility] [id number] [place] [address] 74977- 5488 Jan, Arthritis M19.90 [facility] [id number] [place] [address] 79352- 4272 Jan, Left hip pain M25.552 and Non-pressure chronic ulcer of right calf, 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 [facility] [id number] [place] [address] 95068- 2076 Jan, Chronic hepatitis C without hepatic coma B18.2 [facility] [id number] [place] [address] 96044- 0839 Jan, Encounter for immunization Z23 ; Venous insufficiency ( chronic) (peripheral) I87.2 ; Non-pressure chronic ulcer of unspecified calf limited to breakdown of skin L97.201 and Gastroesophageal reflux disease, esophagitis presence not specified K21.9 [facility] [id number] [place] [address] 06437- 8461 Jan, [facility] [id number] [place] [address] 35732- 7882 Jan, Chronic hepatitis C without hepatic coma B18.2 and Encounter for immunization Z23 [facility] [id number] [place] [address] 70267- 8364 Jan, Arthritis M19.90 [facility] [address] [address]- 1393 Jan, [facility] [id number] [place] [address] 20512- 3985 Dec, [facility] [id number] [place] [address] 10489- 9832 Dec, Unspecified episodic mood disorder F39 [facility] [id number] [place] [address] 26509- 9351 Dec, Arthritis M19.90 [facility] [address] [address]- 2811 Dec, Arthritis M19.90 [facility] [id number] [place] [address] 52926- 1721 Nov, [facility] [id number] [place] [address] 96798- 7495 Nov, [facility] [id number] [place] [address] 85461- 4474 Nov, Other psychoactive substance dependence, uncomplicated F19.20 ; 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, 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 and Chronic hepatitis C without hepatic coma B18.2 [facility] [id number] [place] [address] 10256- 1404 Nov, Arthritis M19.90 [facility] [id number] [place] [address] 56738 -2015 Oct, Partial thickness burn of abdomen, initial encounter T21.22XA [facility] [id number] [place] [address] 09274- 1969 Oct, [facility] [id number] [place] [address] 13652- 2165 Sep, Arthritis M19.90 [facility] [id number] [place] [address] 34626- 4943 Sep, [facility] [id number] [place] [address] 83193- 2311 Sep, [facility] [id number] [place] [address] 68956- 0252 Sep, Unspecified episodic mood disorder F39 ; Chronic hepatitis C without hepatic coma B18.2 and Left hip pain M25.552 [facility] [id number] [place] [address] 25262- 4142 Sep, Arthritis M19.90 and Left hip pain M25.552 [facility] [address] [address]- 6746 Aug, [facility] [id number] [place] [address] 59422- 1516 Aug, [facility] [id number] [place] [address] 17866- 8082 Aug, Chronic hepatitis C without hepatic coma B18.2 [facility] [id number] [place] [address] 39044- 2728 Aug, [facility] [id number] [place] [address] 77746- 9741 Aug, Chronic hepatitis C without hepatic coma B18.2 [facility] [id number] [place] [address] 34848- 9056 Aug, 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, 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 [facility] [id number] [place] [address] 57708- 7469 Aug, [facility] [id number] [place] [address] 72767- 9554 Aug, Chronic hepatitis C without hepatic coma B18.2 and Hypertension I10 [facility] [address] [address]- 9037 Jul, [facility] [id number] [place] [address] 67415- 2761 June, [facility] [id number] [place] [address] 71778- 8910 Apr, Fibromyalgia M79.7 ; Left hip pain M25.552 and Decubitus ulcer of sacral region, stage 1 L89.151 [facility] [address] [address]- 8224 Apr, [facility] [id number] [place] [address] 95412- 2410 Apr, [facility] [id number] [place] [address] 17927- 2171 Feb, [facility] [id number] [place] [address] 29912- 0645 Dec, Anxiety F41.9 ; Combined drug dependence excluding opioids, 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 and Unspecified episodic mood disorder F39 [facility] [id number] [place] [address] 29820- 7732 Dec, [facility] [id number] [place] [address] 90192- 2248 Nov, [facility] [address] 75932- 5876 Nov, [facility] [id number] [place] [address] 66438- 2844 Nov, Other disorder of impulse control F63.89 and Anxiety F41.9 [facility] [id number] [place] [address] 47507- 8192 Oct, [facility] [id number] [place] [address] 33201 -9179 14 Oct, 2015 Open wound of left thigh, initial encounter S71.102A [facility] [id number] [place] [address] 29672- 0910 Oct, [facility] [id number] [place] [address] 43691- 6196 Sep, Unspecified episodic mood disorder F39 ; Other disorder of impulse control 312.39 ; Combined drug dependence excluding opioids, 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 and Anxiety F41.9 [facility] [id number] [place] [address] 54227- 9739 Sep, Other disorder of impulse control 312.39 ; Combined drug dependence excluding opioids, 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 ; Anxiety F41.9 and Unspecified episodic mood disorder F39 [facility] [id number] [place] [address] 25800- 1223 Sep, Other chronic pain G89.29 [facility] [address] [address]- 7375 Sep, [facility] [address] [address]- 1885 Sep, [facility] [address] [address]- 5916 Aug, [facility] [id number] [place] [address] 91030- 8299 Aug, [facility] [address] [address]- 1237 Aug, [facility] [id number] [place] [address] 40740- 1029 Jul, [facility] [id number] [place] [address] 58411- 9836 Jul, [facility] [id number] [place] [address] 91702- 5136 Jul, [facility] [id number] [place] [address] 58528- 8015 17 Jul, 2015 Arthritis M19.90 ; Chronic hepatitis C without hepatic coma B18.2 and Left hip pain M25.552 [facility] [address] [address]- 7267 Jul, Left knee pain M25.562 [facility] [id number] [place] [address] 90859- 8340 13 Jul, 2015 Combined drug dependence excluding opioids, 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 ; Anxiety F41.9 ; Other disorder of impulse control 312.39 and Unspecified episodic mood disorder F39 [facility] [address] [address]- 2213 13 Jul, 2015 Left knee pain M25.562 [facility] [id number] [place] [address] 10208- 5273 Jul, Left knee pain M25.562 and Left hip pain M25.552 [facility] [id number] [place] [address] 72879- 9548 Jul, [facility] [id number] [place] [address] 54538- 4210 June, [facility] [id number] [place] [address] 58740- 7489 June, Combinations of drug dependence excluding opioid type drug, unspecified abuse 304.80 ; Other disorder of impulse control 312.39 ; Unspecified episodic mood disorder F39 and Anxiety F41.9 [facility] [id number] [place] [address] 54280- 0189 June, Other fatigue R53.83 ; Headache R51 and Left knee pain M25.562 [facility] [id number] [place] [address] 65674- 5373 June, Unspecified episodic mood disorder F39 ; Combinations of drug dependence excluding opioid type drug, unspecified abuse 304.80 ; Other disorder of impulse control 312.39 and Anxiety F41.9 [facility] [id number] [place] [address] 82859- 2869 June, Anxiety F41.9 [facility] [id number] [place] [address] 14840- 0542 June, Pain in left knee M25.562 [facility] [id number] [place] [address] 60482- 8520 June, Anxiety F41.9 and Combinations of drug dependence excluding opioid type drug, unspecified abuse 304.80 [facility] [id number] [place] [address] 81752- 4755 June, Unspecified episodic mood disorder 296.90 ; Combinations of drug dependence excluding opioid type drug, unspecified abuse 304.80 and Other disorder of impulse control 312.39 [facility] [id number] [place] [address] 10376- 4544 June, Anxiety F41.9 and Unspecified episodic mood disorder 296.90 [facility] [id number] [place] [address] 13032- 5177 May, Arthritis M19.90 [facility] [id number] [place] [address] 81416- 4871 May, Arthritis M19.90 [facility] [id number] [place] [address] 25614- 0062 May, Anxiety F41.9 ; Combinations of drug dependence excluding opioid type drug, unspecified abuse 304.80 and Other disorder of impulse control 312.39 [facility] [id number] [place] [address] 40293- 4659 May, Left knee pain M25.562 [facility] [id number] [place] [address] 71257- 8342 May, Arthritis M19.90 [facility] [id number] [place] [address] 98266- 4695 May, [facility] [id number] [place] [address] 43625- 4960 May, Anxiety F41.9 ; Unspecified episodic mood disorder 296.90 ; Combinations of drug dependence excluding opioid type drug, unspecified abuse 304.80 and Other disorder of impulse control 312.39 [facility] [id number] [place] [address] 63214- 9299 May, Left knee pain M25.562 [facility] [id number] [place] [address] 64154- 3728 May, Left knee pain M25.562 ; Combinations of drug dependence excluding opioid type drug, unspecified abuse 304.80 ; Other disorder of impulse control 312.39 ; Fibromyalgia M79.7 ; Hypertension I10 ; Unspecified episodic mood disorder 296.90 and Left hip pain M25.552 [facility] [id number] [place] [address] 41499- 1726 May, Unspecified episodic mood disorder 296.90 ; Other disorder of impulse control 312.39 ; Combinations of drug dependence excluding opioid type drug, unspecified abuse 304.80 and Anxiety F41.9 [facility] [id number] [place] [address] 68333- 2202 May, Left knee pain M25.562 ; Combinations of drug dependence excluding opioid type drug, unspecified abuse 304.80 ; Other disorder of impulse control 312.39 ; Fibromyalgia M79.7 ; Hypertension I10 ; Unspecified episodic mood disorder 296.90 and Left hip pain M25.552 [facility] [id number] [place] [address] 50405- 5077 May, Anxiety F41.9 ; Unspecified episodic mood disorder 296.90 ; Other disorder of impulse control 312.39 and Combinations of drug dependence excluding opioid type drug, unspecified abuse 304.80 [facility] [id number] [place] [address] 86343- 0603 Apr, 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 and 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, implants and grafts, initial encounter T84.82XA [facility] [id number] [place] [address] 38052- 4451 Apr, Anxiety F41.9 ; Unspecified episodic mood disorder 296.90 ; Combinations of drug dependence excluding opioid type drug, unspecified abuse 304.80 and Other disorder of impulse control 312.39 [facility] [id number] [place] [address] 27742- 3904 Apr, Arthritis M19.90 [facility] [id number] [place] [address] 15638- 6256 Apr, Anxiety F41.9 ; Unspecified episodic mood disorder 296.90 ; Combinations of drug dependence excluding opioid type drug, unspecified abuse 304.80 and Other disorder of impulse control 312.39 [facility] [id number] [place] [address] 13370- 5430 Apr, Arthritis M19.90 [facility] [id number] [place] [address] 16553- 1426 Apr, [facility] [id number] [place] [address] 13419- 7678 Apr, [facility] [id number] [place] [address] 0651 Apr, Unspecified episodic mood disorder 296.90 ; Combinations of drug dependence excluding opioid type drug, unspecified abuse 304.80 ; Other disorder of impulse control 312.39 and Anxiety F41.9 [facility] [id number] [place] [address] 86632 -4909 Apr, Left knee pain M25.562 [facility] [id number] [place] [address] 28217- 2541 Apr, [facility] [id number] [place] [address] 95974- 2713 Mar, Unspecified episodic mood disorder 296.90 ; Anxiety F41.9 ; Other disorder of impulse control 312.39 and Combinations of drug dependence excluding opioid type drug, unspecified abuse 304.80 [facility] [id number] [place] [address] 51262- 1507 Mar, Hyperpigmentation L81.9 [facility] [id number] [place] [address] 86460- 5526 Mar, Arthritis M19.90 and Anxiety F41.9 [facility] [id number] [place] [address] 39638- 7025 Mar, Unspecified episodic mood disorder F39 ; Combined drug dependence excluding opioids, 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 ; Other disorder of impulse control F63.89 and Anxiety F41.9 [facility] [id number] [place] [address] 78893- 0842 12 Mar, 2015 Well woman exam Z01.419 ; Other fatigue R53.83 ; Hot flashes N95.1 ; Depression, unspecified depression type F32.9 and Body mass index (BMI) of 23.0-23.9 in adult Z68.23 [facility] [id number] [place] [address] 71778- 3016 11 Mar, 2015 Unspecified episodic mood disorder 296.90 ; Other disorder of impulse control 312.39 and Anxiety F41.9 [facility] [address] 99426- 6712 11 Mar, 2015 Well woman exam Z01.419 [...] Z12.39 and Limited mobility Z74.09 [facility] [address] 66281- 7126 10 Mar, 2015 [facility] [address] 79358- 1518 10 Mar, 2015 [facility] [address] 23393- 1870 08 Mar, 2015 [facility] [address] 39572- 9732 03 Mar, 2015 Other specified complication of internal orthopedic prosthetic devices, implants and grafts, initial encounter T84.89XA ; Fibromyalgia M79.7 ; Hypertension I10 ; Anemia D64.9 ; Insomnia G47.00 ; Anxiety F41.9 ; Arthritis M19.90 and Migraine G43.909 [facility] [id number] [place] [address] 63650- 7884 Mar, [facility] [address] [place] [address]- 9634 Feb, [facility] [address] [address]- 9963 Feb, Arthritis M19.90 and Anxiety F41.9 [facility] [id number] [place] [address] 83979 2542 Feb, [facility] [id number] [place] [address] 87462 2549 Feb, [facility] [id number] [place] [address] 39573 2548 Feb, [facility] [id number] [place] [address] 97141- 2029 Feb, [facility] [id number] [place] [address] 70005- 1491 Feb, Anxiety F41.9 [facility] [id number] [place] [address] 73103- 4654 Feb, [facility] [id number] [place] [address] 15402- 8007 Feb, [facility] [id number] [place] [address] 56903- 7770 Feb, 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 and Fibromyalgia M79.7 [facility] [address] [address] Feb, [facility] [id number] [address] Jan, [facility] [id number] [place] [id number] Jan, [facility] [id number] [address] Jan, [facility] [id number] [address] Jan, [facility] [id number] [address] 16 Jan, 2015 [facility] [id number] [place] [address] [id number]- 1165 Jan, [facility] [id number] Jan, [facility] [id number] [place] [address] 678296- 6111 Jan, [facility] [id number] [place] [address] 77328- 0897 Dec, [facility] [id number] [place] [address] 99333- 9072 Dec, Left knee pain M25.562 [facility] [id number] [place] [address] 07357- 2560 Dec, Left knee pain M25.562 [facility] [id number] [place] [address] 68647- 3528 Dec, Fibromyalgia M79.7 ; Hypertension I10 and Arthritis M19.90 [facility] [id number] [place] [address] 21764- 1956 Dec, [facility] [id number] [address] 0969 Dec, [facility] [id number] [address] 7517 Dec, [facility] [id number] [address] 8578 Dec, [facility] [id number] [place] [address] 47251- 6968 Nov, [facility] [id number] [address]- 3563 19 Nov, 2014 [facility] [id number] [place] [address] 41744- 6664 Nov, [facility] [address] [id number] [address] 8844 Nov, Hypertension I10 [facility] [address] [id number] [address] 0656 23 Oct, 2014 [facility] [place] [facility] [address] [facility] [id number] [address] 2546 17 Oct, 2014 [facility] [address] [id number] [address] 2542 Oct, 2014 [facility] [address] [id number] [address]- 9484 Oct, 2014 [facility] [place] [facility] [address] [facility] [id number] [place] [address]- 3122 Oct, [facility] [address] [facility] [id number] [place] [address]- 0583 Sep, [facility] [address] [id number] [address]- 2295 Sep, [facility] [address] [facility] [id number] [address]- 0479 Sep, Hip pain associated with recalled total hip arthroplasty hardware 996.77 [facility] [address] [facility] [id number] [address]- 8298 Sep, [facility] [place] [facility] [address] [facility] [id number] [address]- 0137 Sep, [facility] [place] [facility] [address] [id number] [address]- 2545 Sep, [facility] [place] [facility] [address] [facility] [id number] [place] [address]- 3301 Aug, [facility] [place] [facility] [address] [facility] [id number] [place] [address]- 5088 Jul, [facility] [place] [facility] [address] [facility] [id number] [address]- 2531 June, [facility] [place] [facility] [address] [id number] [place] [address]- 2766 June, [facility] [place] [facility] [address] [id number] [place] [address]- 9924 June, [facility] [place] [facility] [address] [id number] [place] [address]- 5601 June, [facility] [place] [facility] [address] [id number] [place] [address]- 3423 June, [facility] [place] [facility] [address] [id number] [place] [address]- 6139 June, [facility] [place] [facility] [address] [id number] [place] [address]- 7311 May, [facility] [place] [facility] [address] [id number] [place] [address]- 4754 May, [facility] [place] [facility] [address] [id number] [place] [address]- 3327 May, [facility] [place] [facility] [address] [id number] [place] [address]- 1049 Apr, [facility] [place] [facility] [address] [id number] [place] [address]- 1670 Apr, [facility] [place] [facility] [address] [id number] [place] [address]- 7046 Apr, [facility] [place] [facility] [address] [id number] [place] [address]- 2005 Apr, [facility] [place] [facility] [address] [id number] [place] [address]- 3060 Apr, [facility] [place] [facility] [address] [id number] [place] [address]- 3598 Apr, [facility] [place] [facility] [address] [id number] [place] [address]- 3483 Apr, [facility] [place] [facility] [address] [id number] [place] [address]- 5209 Apr, [facility] [place] [facility] [address] [id number] [place] [address]- 5431 Apr, [facility] [place] [facility] [address] [id number] [place] [address]- 5857 Apr, [facility] [place] [facility] [address] [id number] [place] [address]- 7499 Apr, [facility] [place] [facility] [address] [id number] [place] [address]- 1779 Mar, [facility] [place] [facility] [address] [id number] [place] [address]- 4044 Mar, [facility] [place] [facility] [address] [id number] [place] [address]- 0487 Mar, [facility] [place] [facility] [address] [id number] [place] [address]- 9511 Mar, [facility] [place] [facility] [address] [id number] [place] [address]- 1612 Mar, [facility] [place] [facility] [address] [id number] [place] [address]- 9501 Mar, [facility] [place] [facility] [address] [id number] [place] [address]- 1645 Feb, [facility] [place] [facility] [address] [id number] [place] [address]- 4095 Feb, [facility] [place] [facility] [address] [id number] [place] [address]- 2004 Feb, [facility] [place] [facility] [address] [id number] [place] [address]- 9831 Feb, [facility] [place] [facility] [address] [id number] [place] [address]- 9603 Jan, [facility] [place] [facility] [address] [id number] [place] [address]- 8898 Jan, [facility] [place] [facility] [address] [id number] [place] [address]- 1939 Jan, [facility] [place] [facility] [address] [id number] [place] [address]- 4742 Jan, [facility] [place] [facility] [address] [id number] [place] [address]- 8248 Dec, [facility] [place] [facility] [address] [id number] [place] [address]- 4396 Dec, [facility] [place] [facility] [address] [id number] [place] [address]- 5354 Dec, [facility] [place] [facility] [address] [id number] [place] [address]- 6950 Dec, [facility] [place] [facility] [address] [id number] [place] [address]- 3713 Dec, [facility] [place] [facility] [address] [id number] [place] [address]- 3041 Dec, [facility] [place] [facility] [address] [id number] [place] [address]- 9389 Dec, [facility] [place] [facility] [address] [id number] [address]- 5787 Dec, [facility] [place] [facility] [address] [id number] [address]- 5304 Dec, [facility] [place] [facility] [address] [id number] [address]- 3949 Dec, [facility] [place] [facility] [address] [id number] [address]- 9408 Dec, [facility] [place] [facility] [address] [id number] [address]- 1632 Nov, [facility] [place] [facility] [address] [id number] [address]- 6109 Nov, [facility] [place] [facility] [address] [id number] [place] [address]- 1021 28 Nov, 2013 [facility] [place] [facility] [address] [id number] [place] [address]- 5012 17 Nov, 2013 [facility] [place] [facility] [address] [id number] [place] [address]- 6231 17 Nov, 2013 [facility] [place] [facility] [address] [id number] [place] [address]- 0119 15 Nov, 2013 [facility] [place] [facility] [address] [id number] [place] [address]- 0949 15 Nov, 2013 [facility] [place] [facility] [address] [id number] [place] [address]- 8631 15 Nov, 2013 [facility] [place] [facility] [address] [id number] [place] [address]- 2705 15 Nov, 2013 [facility] [place] [facility] [address] [id number] [place] [address]- 6575 14 Nov, 2013 [facility] [place] [facility] [address] [id number] [place] [address]- 7617 14 Nov, 2013 [facility] [place] [facility] [address] [id number] [place] [address]- 2075 14 Nov, 2013 [facility] [place] [facility] [address] [id number] [place] [address]- 1153 14 Nov, 2013 [facility] [place] [facility] [address] [id number] [address]- 4633 13 Nov, 2013 [facility] [place] [facility] [address] [id number] [address]- 9042 13 Nov, 2013 [facility] [place] [facility] [address] [id number] [place] [address]- 6933 11 Nov, 2013 [facility] [place] [facility] [address] [id number] [place] [address]- 6458 11 Nov, 2013 [facility] [place] [facility] [address] [id number] [place] [address]- 2102 07 Nov, 2013 [facility] [place] [facility] [address] [id number] [place] [address]- 4211 07 Nov, 2013 [facility] [place] [facility] [address] [id number] [place] [address]- 9141 07 Nov, 2013 [facility] [place] [facility] [address] [id number] [place] [address]- 1286 07 Nov, 2013 [facility] [place] [facility] [address] [id number] [place] [address] 2546 30 Sep, 2013 [facility] [place] [facility] [address] [id number] [place] [address]- 2541 30 Sep, 2013 [facility] [place] [facility] [address] [id number] [place] [address]- 7586 26 Sep, 2013 [facility] [place] [facility] [address] [id number] [place] [address]- 4234 26 Oct, 2013 [facility] [place] [facility] [address] [id number] [place] [address]- 6344 22 Oct, 2013 [facility] [place] [facility] [address] [id number] [place] [address] 2540 22 Sep, 2013 [facility] [place] [facility] [address] [id number] [place] [address]- 2545 18 Sep, 2013 [facility] [place] [facility] [address] [id number] [place] [address]- 2548 18 Sep, 2013 [facility] [place] [facility] [address] [id number] [place] [address]- 2545 18 Sep, 2013 [facility] [place] [facility] [address] [id number] [place] [address] 2548 18 Sep, 2013 [facility] [place] [facility] [address] [id number] [place] [address]- 2546 12 Sep, 2013 [facility] [place] [facility] [address] [id number] [place] [address]- 2546 12 Sep, 2013 [facility] [place] [facility] [address] [id number] [place] [address]- 6410 Oct, [facility] [place] [facility] [address] [id number] [place] [address]- 2977 Oct, [facility] [place] [facility] [address] [id number] [place] [address]- 1385 Sep, [facility] [place] [facility] [address] [id number] [place] [address]- 3222 Sep, [facility] [place] [facility] [address] [id number] [place] [address]- 4907 Sep, [facility] [place] [facility] [address] [id number] [place] [address]- 9163 Sep, [facility] [place] [facility] [address] [id number] [place] [address]- 6999 Sep, [facility] [place] [facility] [address] [id number] [place] [address]- 9840 Sep, [facility] [place] [facility] [address] [id number] [place] [address]- 6934 Sep, [facility] [place] [facility] [address] [id number] [place] [address]- 7519 Sep, [facility] [place] [facility] [address] [id number] [place] [address]- 3019 Sep, [facility] [place] [facility] [address] [id number] [place] [address]- 1753 Sep, [facility] [place] [facility] [address] [id number] [place] [address]- 2295 Sep, [facility] [place] [facility] [address] [id number] [place] [address]- 9094 Sep, [facility] [place] [facility] [address] [id number] [place] [address]- 7219 Sep, [facility] [place] [facility] [address] [id number] [place] [address]- 6686 Sep, [facility] [place] [facility] [address] [id number] [place] [address]- 8454 Sep, [facility] [place] [facility] [address] [id number] [place] [address]- 2789 Sep, [facility] [place] [facility] [address] [id number] [place] [address]- 5430 Sep, [facility] [place] [facility] [address] [id number] [place] [address]- 7130 Sep, [facility] [place] [facility] [address] [id number] [place] [address]- 5320 Aug, [facility] [place] [facility] [address] [id number] [place] [address]- 1162 Aug, [facility] [place] [facility] [address] [id number] [place] [address]- 1659 Aug, [facility] [place] [facility] [address] [id number] [place] [address]- 1303 Aug, [facility] [place] [facility] [address] [id number] [place] [address]- 6675 Aug, [facility] [place] [facility] [address] [id number] [place] [address]- 6474 Aug, [facility] [place] [facility] [address] [id number] [place] [address]- 5364 Jul, [facility] [place] [facility] [address] [id number] [place] [address]- 2658 Jul, [facility] [place] [facility] [address] [id number] [place] [address]- 6941 Jul, [facility] [place] [facility] [address] [id number] [place] [address]- 8549 Jul, [facility] [place] [facility] [address] [id number] [place] [address]- 5976 June, [facility] [place] [facility] [address] [id number] [place] 2342 June, [facility] [place] [facility] [address] [id number] [place] [address]- 4385 June, [facility] [place] [facility] [address] [id number] [place] [address]- 7137 June, [facility] [place] [facility] [address] [id number] [place] [address]- 9986 June, [facility] [place] [facility] [address] [id number] [place] [address]- 7399 June, [facility] [place] [facility] [address] [id number] [place] [address]- 6387 June, [facility] [place] [facility] [address] [id number] [place] [address]- 7895 May, [facility] [place] [facility] [address] [id number] [place] [address]- 7373 May, [facility] [place] [facility] [address] [id number] [place] [address]- 0205 May, [facility] [place] [facility] [address] [id number] [place] [address]- 6546 May, [facility] [place] [facility] [address] [id number] [place] [address]- 6955 May, [facility] [place] [facility] [address] [id number] [place] [address]- 2286 May, [facility] [place] [facility] [address] [id number] [place] [address]- 6770 Apr, [facility] [place] [facility] [address] [id number] [place] [address]- 8161 31 Apr, 2013 [facility] [place] [facility] [address] [id number] [place] [address]- 6850 28 Apr, 2013 [facility] [place] [facility] [address] [id number] [place] [address]- 6204 28 Apr, 2013 [facility] [place] [facility] [address] [id number] [place] [address]- 1739 14 Apr, 2013 [facility] [place] [facility] [address] [id number] [place] [address]- 1483 14 Apr, 2013 [facility] [place] [facility] [address] [id number] [place] [address]- 0031 Apr, [facility] [place] [facility] [address] [id number] [place] [address]- 5889 Apr, [facility] [place] [facility] [address] [id number] [place] [address]- 8570 Apr, [facility] [place] [facility] [address] [id number] [place] [address]- 5721 Apr, [facility] [place] [facility] [address] [id number] [place] [address]- 2965 Apr, [facility] [place] [facility] [address] [id number] [place] [address]- 1196 Apr, [facility] [place] [facility] [address] [id number] [place] [address]- 0575 Apr, [facility] [place] [facility] [address] [id number] [place] [address]- 5975 Apr, [facility] [place] [facility] [address] [id number] [place] [address]- 0340 Mar, [facility] [place] [facility] [address] [id number] [place] [address]- 2325 Mar, [facility] [place] [facility] [address] [id number] [place] [address]- 6385 Mar, [facility] [place] [facility] [address] [id number] [place] [address]- 0250 Feb, [facility] [place] [facility] [address] [id number] [place] 0086 Feb, [facility] [place] [facility] [address] [id number] [place] [address]- 8118 Feb, [facility] [place] [facility] [address] [id number] [place] [address]- 6644 Feb, [facility] [address] [id number] [place] [address]- 3020 Feb, [facility] [address] [id number] [place] [address]- 0436 Feb, [facility] [address] [id number] [place] [address]- 2680 Feb, [facility] [address] [id number] [place] [address]- 0339 Feb, [facility] [address] [id number] [place] [address]- 2925 Feb, [facility] [address] [id number] [place] [address]- 3535 Feb, [facility] [address] [id number] [place] [address]- 7340 Jan, [facility] [address] [id number] [place] [address]- 4684 Jan, [facility] [address] [id number] [place] [address]- 7109 Jan, [facility] [address] [id number] [place] [address]- 1419 Jan, [facility] [address] [id number] [place] [address]- 9311 Jan, [facility] [address] [id number] [place] [address]- 7553 Jan, [facility] [place] [facility] [address] [id number] [place] [address]- 2572 Jan, [facility] [place] [facility] [address] [id number] [place] [address]- 7106 Jan, [facility] [place] [facility] [address] [id number] [place] [address]- 9859 Jan, [facility] [address] [id number] [place] [address]- 8302 Jan, [facility] [place] [facility] [address] [id number] [place] 4938 Jan, [facility] [address] [id number] [place] [address]- 3293 Jan, [facility] [place] [facility] [address] [id number] [place] [address]- 3896 16 Jan, 2013 [facility] [address] [id number] [place] [address] Jan, [facility] [place] [facility] [address] [id number] [place] [address] Jan, [facility] [place] [facility] [address] [facility] [id number] [place] [address] Jan, [facility] [place] [facility] [address] [id number] [place] [address] Jan, [facility] [place] [facility] [address] [id number] [place] [address] Jan, [facility] [place] [facility] [address] [id number] [place] [address] Jan, [facility] [place] [facility] [address] [id number] [place] [address] Jan, [facility] [place] [facility] [address] [id number] [address] Jan, [facility] [place] [facility] [address] [id number] [place] [address] Dec, [facility] [place] [facility] [address] [id number] [place] [address] Dec, [facility] [place] [facility] [address] [facility] [id number] [place] [address] Dec, [facility] [place] [facility] [address] [id number] [place] [address] Dec, [facility] [place] [facility] [address] [id number] [place] [address] Dec, [facility] [place] [facility] [address] [id number] [place] [address]378 Dec, [facility] [place] [facility] [address] [id number] [place] [address] Dec, [facility] [place] [facility] [address] [id number] [place] [address]761 Dec, [facility] [place] [facility] [address] [id number] [place] [address] Dec, [facility] [place] [facility] [address] [id number] [place] [address] 265[address] Dec, [facility] [place] [facility] [address] [id number] [place] [address] Nov, [facility] [place] [facility] [address] [id number] [place] [address]245 Nov, [facility] [place] [facility] [address] [id number] [place] [address] Nov, [facility] [place] [facility] [address] [id number] [place] [address]28 18 Nov, 2012 [facility] [place] [facility] [address] [id number] [place] [address] 8539 Nov, [facility] [place] [facility] [address] [id number] [address] Nov, [facility] [place] [facility] [address] [id number] [place] [address] Nov, [facility] [place] [facility] [address] [id number] [place] [address]- [address] 11 Nov, 2012 [facility] [place] [facility] [address] [id number] [address] 10 Nov, 2012 [facility] [place] [facility] [address] [id number] [place] [address] 3817 Nov, [facility] [place] [facility] [address] [id number] [place] [address]187 Oct, [facility] [place] [facility] [address] [id number] [place] [address] 254 Oct, [facility] [place] [facility] [address] [id number] [place] [address] Oct, [facility] [place] [facility] [address] [id number] [place] [address] Oct, [facility] [place] [facility] [address] [id number] [place] [address] Oct, [facility] [place] [facility] [address] [id number] [place] [address] 1461 Sep, [facility] [place] [facility] [address] [id number] [place] [address]- [address]365 Sep, [facility] [place] [facility] [address] [id number] [place] [address]- 29[address] Aug, [facility] [place] [facility] [address] [id number] [place] [address]- [address]807 Aug, [facility] [place] [facility] [address] [id number] [place] [address] Aug, [facility] [place] [facility] [address] [id number] [place] [address]- 3626 Aug, [facility] [place] [facility] [address] [id number] [place] [address] Aug, [facility] [place] [facility] [address] [id number] [place] [address] 8032 Aug, [facility] [place] [facility] [address] [id number] [place] [address]- 2473 Aug, [facility] [place] [facility] [address] [id number] [place] [address]- [address] Jul, [facility] [address] [id number] [place] [address]237 Jul, [facility] [address] [id number] [place] [address]- [address] June, [facility] [address] [id number] [place] [address]- [address]17 June, [facility] [address] [id number] [place] [address]- 4998 June, [facility] [address] [id number] [place] [address]- [address]89 June, [facility] [address] [id number] [place] [address]- 7579 June, [facility] [address] [id number] [place] [address]- 9046 June, [facility] [address] [id number] [place] [address]- 1034 June, [facility] [address] [id number] [place] [address]136 June, [facility] [address] [id number] [place] [address]- 1726 June, [facility] [address] [id number] [place] [address]- 2440 June, [facility] [place] [facility] [address] [id number] [place] [address] 7787 June, [facility] [place] [facility] [address] [id number] [place] [address]- [address] May, [facility] [place] [facility] [address] [id number] [place] [address]209 May, [facility] [place] [facility] [address] [id number] [place] [address]- 0712 May, [facility] [place] [facility] [address] [id number] [place] [address]- [address]21 05 May, 2012 [facility] [address] [id number] [place] [address]- 9969 Apr, [facility] [address] [id number] [place] [address]- 7706 Apr, [facility] [address] [id number] [place] [address]- 0724 Apr, [facility] [address] [id number] [place] [address]- 2015 Mar, [facility] [address] [id number] [place] [address]- 1112 Mar, [facility] [address] [id number] [place] [address] Feb, [facility] [address] [id number] [place] [address] Feb, [facility] [address] [id number] [place] [address] 58[address] Feb, [facility] [address] [id number] [place] [address] 9380 Feb, [facility] [address] [id number] [place] [address]17 16 Feb, 2012 [facility] [address] [id number] [place] [address] 6377 14 Feb, 2012 [facility] [address] [id number] [place] [address] 0272 Feb, [facility] [address] [id number] [place] [address] Jan, [facility] [address] [id number] [place] [address] Jan, [facility] [address] [id number] [place] [address] 7297 Jan, [facility] [place] [facility] [address] [id number] [place] [address] 8745 Jan, [facility] [place] [facility] [address] [id number] [place] [address] 1637 Jan, [facility] [place] [facility] [address] [id number] [place] [address] Jan, [facility] [place] [facility] [address] [id number] [place] [address] 2912 Jan, [facility] [place] [facility] [address] [id number] [place] [address] 2203 Jan, [facility] [place] [facility] [address] [id number] [place] [address] 7533 Jan, [facility] [place] [facility] [address] [id number] [place] [address] 0513 Jan, [facility] [place] [facility] [address] [id number] [place] [address] 8161 Jan, [facility] [place] [facility] [address] [id number] [place] [address] 3259 Dec, [facility] [place] [facility] [address] [id number] [address] Dec, [facility] [place] [facility] [address] [id number] [address] Dec, [facility] [place] [facility] [address] [id number] [address] 0298 Dec, [facility] [place] [facility] [address] [id number] [place] [address] 7891 Nov, [facility] [place] [facility] [address] [id number] [place] [address] 7563 Nov, [facility] [place] [facility] [address] [facility] [id number] [address] Nov, [facility] [place] [facility] [address] [id number] [address] 2694 27 Oct, 2011 [facility] [place] [facility] [address] [id number] [place] [address]- 3476 24 Oct, 2011 [facility] [place] [facility] [address] [id number] [place] [address]- 6766 21 Oct, 2011 [facility] [place] [facility] [address] [id number] [place] [address]- 6696 10 Oct, 2011 [facility] [place] [facility] [address] [id number] [place] [address]- 8676 07 Oct, 2011 [facility] [place] [facility] [address] [id number] [place] [address]- 6306 04 Oct, 2011 [facility] [place] [facility] [address] [id number] [place] [address]- 6536 04 Oct, 2011 [facility] [place] [facility] [address] [id number] [place] [address]- 6559 29 Sep, 2011 [facility] [place] [facility] [address] [id number] [place] [address] 9312 Sep, [facility] [place] [facility] [address] [id number] [place] [address]- 3869 23 Sep, 2011 [facility] [place] [facility] [address] [id number] [place] [address] 9339 13 Sep, 2011 [facility] [place] [facility] [address] [id number] [place] [address]- 0771 Sep, [facility] [place] [facility] [address] [id number] [place] [address] 2544 30 Aug, 2011 [facility] [place] [facility] [address] [id number] [place] [address]- 1299 26 Aug, 2011 [facility] [place] [facility] [address] [id number] [place] [address] 17 Aug, 2011 [facility] [place] [facility] [address] [id number] [place] [address] 6003 16 Aug, 2011 [facility] [place] [facility] [address] [id number] [place] [address]- 1183 13 Aug, 2011 [facility] [place] [facility] [address] [id number] [place] [address]- 5363 Aug, [facility] [place] [facility] [address] [id number] [place] [address] 2546 Aug, [facility] [place] [facility] [address] [id number] [place] [address]- 8746 Jul, [facility] [place] [facility] [address] [id number] [place] [address] 7135 Jul, [facility] [place] [facility] [address] [id number] [place] [address]- 0184 Jul, [facility] [place] [facility] [address] [id number] [place] [address] 8008 Jul, [facility] [place] [facility] [address] [id number] [place] [address]- 8492 Jul, [facility] [place] [facility] [address] [id number] [place] [address]- 3363 Jul, [facility] [place] [facility] [address] [id number] [place] [address]- 8299 Jul, [facility] [place] [facility] [address] [id number] [place] [address]- 7433 Jul, [facility] [place] [facility] [address] [id number] [place] [address]- 3623 Jul, [facility] [place] [facility] [address] [id number] [place] [address] 8031 June, [facility] [place] [facility] [address] [id number] [place] [address]- 4836 June, [facility] [place] [facility] [address] [id number] [place] [address]- 5610 June, [facility] [place] [facility] [address] [id number] [place] [address]- 3606 June, [facility] [address] [id number] [place] [address]- 0231 June, [facility] [place] [facility] [address] [id number] [place] [address]- 2508 June, [facility] [address] [id number] [place] [address]- 5399 June, [facility] [place] [facility] [address] [id number] [place] [address]- 1302 June, [facility] [address] [id number] [place] [address]- 2382 May, [facility] [place] [facility] [address] [id number] [place] [address]- 3190 May, [facility] [place] [facility] [address] [id number] [place] [address]- 3345 May, [facility] [place] [facility] [address] [id number] [place] [address]- 8167 May, [facility] [place] [facility] [address] [id number] [place] [address]- 3477 May, [facility] [place] [facility] [address] [id number] [place] [address]- 4168 16 May, 2011 [facility] [place] [facility] [address] [id number] [place] [address]- 4523 May, [facility] [place] [facility] [address] [id number] [address] 2686 27 Apr, 2011 [facility] [place] [facility] [address] [id number] [place] [address]- 9699 Apr, [facility] [place] [facility] [address] [id number] [place] [address]- 4994 Apr, [facility] [place] [facility] [address] [id number] [place] [address]- 0065 Apr, [facility] [place] [facility] [address] [id number] [place] [address]- 4630 Apr, [facility] [address] [id number] [place] [address]- 6826 Apr, [facility] [place] [facility] [address] [id number] [place] [address] 2546 Apr, [facility] [place] [facility] [address] [id number] [place] [address]- 3656 Mar, [facility] [place] [facility] [address] [id number] [place] [address] 2546 Mar, [facility] [place] [facility] [address] [id number] [place] [address]- 6066 14 Mar, 2011 [facility] [place] [facility] [address] [id number] [place] [address] 2546 13 Mar, 2011 [facility] [place] [facility] [address] [id number] [place] [address] 2546 Mar, [facility] [place] [facility] [address] [id number] [place] [address]- 7266 Mar, [facility] [place] [facility] [address] [id number] [place] [address]- 7820 Mar, [facility] [place] [facility] [address] [facility] [id number] [place] [address]- 5148 Feb, [facility] [place] [facility] [address] [id number] [place] [address]- 2056 Feb, [facility] [place] [facility] [address] [id number] [place] [address] 2546 Feb, [facility] [place] [facility] [address] [id number] [place] [address] 2546 Feb, [facility] [place] [facility] [address] [id number] [place] [address] 2546 Feb, [facility] [place] [facility] [address] [id number] [place] [address]- 6070 Feb, [facility] [address] [id number] [place] [address]- 8221 Feb, [facility] [place] [facility] [address] [id number] [place] [address]- 1371 Feb, [facility] [place] [facility] [address] [id number] [place] [address]- 9231 Feb, [facility] [place] [facility] [address] [id number] [place] [address]- 6959 Feb, [facility] [address] [id number] [place] [address]- 1301 Jan, [facility] [place] [facility] [address] [id number] [place] [address]- 6435 Jan, [facility] [place] [facility] [address] [id number] [place] [address]- 1295 Jan, [facility] [place] [facility] [address] [id number] [place] [address]- 1228 Jan, [facility] [place] [facility] [address] [id number] [place] [address]- 8741 Jan, [facility] [place] [facility] [address] [id number] [place] [address]- 8647 Jan, [facility] [place] [facility] [address] [id number] [place] [address]- 7525 Jan, [facility] [place] [facility] [address] [id number] [place] [address]- 2489 Jan, [facility] [place] [facility] [address] [id number] [place] [address]- 6497 Jan, [facility] [place] [facility] [address] [id number] [place] [address]- 9917 Jan, [facility] [place] [facility] [address] [id number] [place] [address]- 6208 Jan, [facility] [place] [facility] [address] [id number] [place] [address]- 6805 17 Dec, 2010 [facility] [place] [facility] [address] [id number] [place] [address]- 1212 17 Dec, 2010 [facility] [place] [facility] [address] [id number] [place] [address]- 8527 17 Dec, 2010 [facility] [place] [facility] [address] [id number] [place] [address]- 4294 16 Dec, 2010 [facility] [place] [facility] [address] [id number] [place] [address]- 2464 14 Dec, 2010 [facility] [place] [facility] [address] [id number] [place] [address]- 3123 09 Dec, 2010 [facility] [place] [facility] [address] [id number] [place] [address]- 9481 08 Dec, 2010 [facility] [place] [facility] [address] [id number] [place] [address]- 5047 07 Dec, 2010 [facility] [place] [facility] [address] [id number] [place] [address]- 9165 02 Dec, 2010 [facility] [place] [facility] [address] [id number] [place] [address]- 5649 31 Nov, 2010 [facility] [place] [facility] [address] [id number] [place] [address]- 5148 31 Nov, 2010 [facility] [place] [facility] [address] [id number] [place] [address]- 1960 27 Nov, 2010 [facility] [place] [facility] [address] [id number] [place] [address]- 8271 24 Nov, 2010 [facility] [place] [facility] [address] [id number] [place] [address]- 9886 24 Nov, 2010 [facility] [place] [facility] [address] [id number] [place] [address]- 0773 13 Nov, 2010 [facility] [place] [facility] [address] [id number] [address]- [address]283 Aug, [facility] [address] [address] 7[address] Feb, [facility] [address] [address]- 9382 Jan, [facility] [address] [address]- 0075 Jan, [facility] [id number] [place] [address]- 5393 Jan, [facility] [address] [address]693 Jan, [facility] [id number] [place] [address] 171447- 1434 Jan, [facility] [address] [address] Dec, [facility] [address] [address]- 1571 Dec, [facility] [address] [address]- 8542 Dec, [facility] [address] [address]- 7271 Dec, [facility] [address] [address]- 3537 Nov, [facility] [address] [address]- 5131 Nov, [facility] [address] [id number] [address]- 2502 Nov, IMMUNIZATIONS No Known Immunizations SOCIAL HISTORY Never Assessed REASON FOR VISIT Fentanyl -10/10 PLAN OF CARE VITAL SIGNS MEDICATIONS Medication Instructions Dosage Frequency Start Date End Date Duration Status Fentanyl 50 MCG/HR Transdermal 72hrs 1 patch to skin Oct, 30 days [...]
--- OUTSIDE RECORDS SUMMARY | 2018-01-13 22:16 | XMS REPORT ---
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 Active 283325217 Problem Other chronic pain G89.29 Active 26157872 Problem Chronic hepatitis C without hepatic coma B18.2 Active 519389309 Problem Anxiety F41.9 Active 63500851 Problem Fibromyalgia M79.7 Active 49132751 Problem Left knee pain M25.562 Active 52882202 Problem Left hip pain M25.552 Active 64029296 ALLERGIES Unknown Allergies SOCIAL HISTORY No smoking Hx information available PLAN OF CARE VITAL SIGNS MEDICATIONS Medication Instructions Dosage Frequency Start Date End Date Duration Status Klonopin 1 MG Orally 3 times a day 1 tablet 8h Active RESULTS No Results PROCEDURES No Known procedures IMMUNIZATIONS No Known Immunizations
--- OUTSIDE RECORDS SUMMARY | 2018-01-13 22:16 | XMS REPORT ---
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 Active 06706733 Problem Combined drug dependence excluding opioids, 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 Active 322010341 Problem Other chronic pain G89.29 Active 96539655 Problem Chronic hepatitis C without hepatic coma B18.2 Active 073918822 Problem Anxiety F41.9 Active 60482912 Problem Fibromyalgia M79.7 Active 31706549 Problem Left knee pain M25.562 Active 70047616 Problem Left hip pain M25.552 Active 27196063 ALLERGIES Substance Reaction Event Type Date Status Propranolol HCl chest pain, headache Drug Allergy Oct, Active Bactrim unknown Drug Allergy Oct, Active Penicillins unknown Non Drug Allergy Oct, Active SOCIAL HISTORY No smoking Hx information available PLAN OF CARE VITAL SIGNS Height 68 in 2015-10-25 Heart Rate 98 bpm 2015-10-25 Respiratory Rate 22 2015-10-25 Blood pressure systolic 132 mmHg 2015-10-25 Blood pressure diastolic 104 mmHg 2015-10-25 MEDICATIONS Medication Instructions Dosage Frequency Start Date End Date Duration Status Klonopin 1 MG Orally 3 times a day 1 tablet 8h Active Triple Antibiotic [phone] Ophthalmic every 4 hrs 1 application 4h Active Fluoxetine HCl 40 MG Orally Once a day 2 capsule in the morning 24h 30 Active Clindamycin HCl 150 MG Orally every 6 hrs 2 capsules 6h Oct, Oct, 10 days Active Aleve 220 MG Orally every 12 hrs 1 tablet as needed 12h Active Clonidine HCl 0.1 MG Orally twice a day 1 tablet 12h 30 Active Cyclobenzaprine HCl 10 MG TAKE ONE TABLET BY MOUTH THREE TIMES DAILY 30 Active RESULTS No Results PROCEDURES Procedure Date Ordered Related Diagnosis Body Site Office Visit, Est Pt., Level 3 Oct 25, 2015 IMMUNIZATIONS No Known Immunizations
--- OUTSIDE RECORDS SUMMARY | 2018-01-13 22:16 | XMS REPORT ---
Author Author WYATT SOTO Organization [employer] Address Unknown Phone Unavailable Care Team Providers Care Director Mission Name Role Phone WYATT SOTO CP Unavailable [...]
--- OUTSIDE RECORDS SUMMARY | 2018-01-13 22:16 | XMS REPORT ---
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
--- OUTSIDE RECORDS SUMMARY | 2018-01-13 22:18 | XMS REPORT ---
Author Author WYATT SOTO [facility] [employer] Address Unknown Phone Unavailable Care Team Providers Care Outsole Cementer Name Role Phone WYATT SOTO CP Unavailable [...] Date End Date Status Dosage Fluoxetine HCl [facility]NOTE 2] [address]-51 40 MG Orally Once a day Nov 28, 2014 2 capsule in the morning Lyrica [facility] [place]NOTE 2] [address]-63 100 MG Orally Three times a day 1 capsule Results No Known Results Summary Purpose [employer] Submission
--- OUTSIDE RECORDS SUMMARY | 2018-01-13 22:18 | XMS REPORT ---
Author Author FIORELLA PIERRE Organization [employer] Address Unknown Phone Unavailable Care Team Providers Care Burring Machine Operator Name Role Phone FIORELLA PIERRE CP Unavailable Allergies No Known Allergies Problems Problem Type Condition Code Onset Dates Condition Status Assessment Hot flashes N95.1 Active Assessment Well woman exam Z01.419 Active Assessment Other fatigue R53.83 Active Assessment Body mass index (BMI) of 23.0-23.9 in adult Z68.23 Active Assessment Depression, unspecified depression type F32.9 Active Problem Fibromyalgia M79.7 Active Problem Arthritis M19.90 Active Problem Anxiety F41.9 Active Problem Combinations of drug dependence excluding opioid type drug, 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 Problem 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 Problem Hypertension I10 Active Problem Unspecified episodic mood disorder 296.90 Active Medications No Known Medications Procedures Procedure Coding System Code Date COMPLETE CBC W/AUTO DIFF WBC CPT-4 70150 Mar 24, 2015 LIPID PANEL CPT-4 96532 Mar 24, 2015 GLYCATED HEMOGLOBIN TEST CPT-4 98933 Mar 24, 2015 VENIPUNCT, ROUTINE* CPT-4 32709 Mar 24, 2015 COMPREHEN METABOLIC PANEL CPT-4 21738 Mar 24, 2015 Results Name Result Date Reference Range Unit Abnormality Flag ROUTINE VENIPUNCTURE Summary Purpose [employer] Submission
--- OUTSIDE RECORDS SUMMARY | 2018-01-13 22:18 | XMS REPORT ---
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 Active 70281994 Problem Unspecified episodic mood disorder F39 Active 73836273 Problem Hypertension I10 Active 80591759 Problem Venous insufficiency (chronic) (peripheral) I87.2 Active 147165132 Problem Gastroesophageal reflux disease, esophagitis presence not specified K21.9 Active 858809895 Problem Other chronic pain G89.29 Active 22701087 Problem Chronic hepatitis C without hepatic coma B18.2 Active 116305040 Problem Other psychoactive substance dependence, uncomplicated F19.20 Active 6489087 Problem 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, 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 958952677 ALLERGIES Substance Reaction Event Type Date Status Propranolol HCl chest pain, headache Drug Allergy Oct, Active Bactrim unknown Drug Allergy Oct, Active Penicillins unknown Non Drug Allergy Oct, Active ENCOUNTERS Encounter Location Date Diagnosis [facility] [address] [facility] [id number] [address] May, [facility] [address] [facility] [id number], [place] [address] May, Arthritis M19.90 [facility] [address] [facility] [id number], [place] [address] May, Dysuria R30.0 ; Abscess L02.91 and Acute cystitis without hematuria N30.00 [facility] [address] [place] [address] 93083- 6481 May, 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 ; Unspecified episodic mood disorder F39 ; Combined drug dependence excluding opioids, 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 ; Anxiety F41.9 and Other psychoactive substance dependence, uncomplicated F19.20 [facility] [id number] [place] [address] 62132- 7542 May, [facility] [id number] [place] [address] 46993- 7876 May, Other disorder of impulse control 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 ; Unspecified episodic mood disorder F39 ; Combined drug dependence excluding opioids, 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 ; Other psychoactive substance dependence, uncomplicated F19.20 and Anxiety F41.9 [facility] [id number] [place] [address] 61339- 8633 May, Other chronic pain G89.29 ; Left hip pain M25.552 ; Hypertension I10 ; 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, 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 and Unspecified episodic mood disorder F39 [facility] [id number] [place] [address] 37348- 6982 Apr, [facility] [address] [place] [address] 31740 -8454 Apr, Neck pain M54.2 ; Left hip pain M25.552 and Fall, initial encounter W19.XXXA [facility] [id number] [place] [address] 75351- 9103 Apr, Unspecified episodic mood disorder F39 ; Combined drug dependence excluding opioids, 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 ; Anxiety F41.9 ; Other psychoactive substance dependence, uncomplicated F19.20 and Other disorder of impulse control F63.89 [facility] [address] [place] [address] 51037- 2782 Apr, [facility] [id number] [place] [address] 56134- 8141 Apr, Arthritis M19.90 and Unspecified episodic mood disorder F39 [facility] [id number] [place] [address] 78406- 9117 Apr, Unspecified episodic mood disorder F39 [facility] [id number] [place] [address] 43805- 2956 Apr, [facility] [id number] [place] [address] 48626- 8121 Apr, [facility] [id number] [place] [address] 94939- 2721 Apr, Unspecified episodic mood disorder F39 ; Combined drug dependence excluding opioids, 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 ; Anxiety F41.9 ; Other psychoactive substance dependence, uncomplicated F19.20 and Other disorder of impulse control F63.89 [facility] [id number] [place] [address] 46194- 3816 Mar, Unspecified episodic mood disorder F39 [facility] [id number] [place] [address] 28671- 4916 Mar, Gastroesophageal reflux disease, esophagitis presence not specified K21.9 [facility] [id number] [place] [address] 27036- 0603 Mar, Arthritis M19.90 and Unspecified episodic mood disorder F39 [facility] [id number] [place] [address] 15652- 7731 Feb, [facility] [id number] [place] [address] 89357- 9186 Feb, [facility] [id number] [place] [address] 39459- 3237 Feb, [facility] [id number] [place] [address] 62271- 6655 Feb, Arthritis M19.90 [facility] [id number] [place] [address] 01415- 2203 Feb, Non-pressure chronic ulcer of right calf, 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 ; Unspecified episodic mood disorder F39 and Left hip pain M25.552 [facility] [id number] [place] [address] 43641- 0077 Feb, [facility] [id number] [place] [address] 82437- 4383 Feb, [facility] [id number] [place] [address] 27384- 6393 Jan, Arthritis M19.90 [facility] [id number] [place] [address] 43795- 6949 Jan, Left hip pain M25.552 and Non-pressure chronic ulcer of right calf, 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 [facility] [id number] [place] [address] 66557- 8780 Jan, Chronic hepatitis C without hepatic coma B18.2 [facility] [id number] [place] [address] 25746- 1751 Jan, Encounter for immunization Z23 ; Venous insufficiency ( chronic) (peripheral) I87.2 ; Non-pressure chronic ulcer of unspecified calf limited to breakdown of skin L97.201 and Gastroesophageal reflux disease, esophagitis presence not specified K21.9 [facility] [id number] [place] [address] 17574- 1471 Jan, [facility] [id number] [place] [address] 10455- 2875 Jan, Chronic hepatitis C without hepatic coma B18.2 and Encounter for immunization Z23 [facility] [id number] [place] [address] 11369- 1277 Jan, Arthritis M19.90 [facility] [id number] [place] [address] 14421- 0579 Jan, [facility] [id number] [place] [address] 00598- 7027 Dec, [facility] [address] [address] Dec, Unspecified episodic mood disorder F39 [facility] [address] [place] [address] 83922- 1768 Dec, Arthritis M19.90 [facility] [address] [place] [address] 83280- 9926 Dec, Arthritis M19.90 [facility] [id number] [place] [address] 21448- 7301 Nov, [facility] [id number] [place] [address] 00887- 6230 Nov, [facility] [address] [place] [address] 17284- 4523 Nov, Other psychoactive substance dependence, uncomplicated F19.20 ; 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, 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 and Chronic hepatitis C without hepatic coma B18.2 [facility] [address] [place] [address] 27729- 1376 Nov, Arthritis M19.90 [facility] [address] [place] [address] 35827 -1748 Oct, Partial thickness burn of abdomen, initial encounter T21.22XA [facility] [address] [place] [address] 86331- 2669 Oct, [facility] [address] [place] [address] 89636- 2936 Sep, Arthritis M19.90 [facility] [address] [place] [address] 24593- 6001 Sep, [facility] [address] [place] [address] 73031- 1256 Sep, [facility] [address] [place] [address] 31201- 9957 Sep, Unspecified episodic mood disorder F39 ; Chronic hepatitis C without hepatic coma B18.2 and Left hip pain M25.552 [facility] [id number] [place] [address] 07699- 6701 Sep, Arthritis M19.90 and Left hip pain M25.552 [facility] [id number] [place] [address] 15456- 4322 Aug, [facility] [id number] [place] [address] 63222- 7340 Aug, [facility] [id number] [place] [address] 92433- 5837 Aug, Chronic hepatitis C without hepatic coma B18.2 [facility] [id number] [place] [address] 40018- 6083 Aug, [facility] [id number] [place] [address] 73855- 7371 Aug, Chronic hepatitis C without hepatic coma B18.2 [facility] [id number] [place] [address] 51823- 6439 Aug, 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, 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 [facility] [address] [place] [address] 00993- 3040 Aug, [facility] [id number] [place] [address] 27360- 5650 Aug, Chronic hepatitis C without hepatic coma B18.2 and Hypertension I10 [facility] [id number] [place] [address] 89571- 6158 Jul, [facility] [id number] [place] [address] 24997- 2499 June, [facility] [id number] [place] [address] 26226- 4917 Apr, Fibromyalgia M79.7 ; Left hip pain M25.552 and Decubitus ulcer of sacral region, stage 1 L89.151 [facility] [address] [address] 6037 Apr, [facility] [id number] [place] [address] 85397- 6433 Apr, [facility] [id number] [place] [address] 53335- 5742 Feb, [facility] [id number] [place] [address] 46137- 0389 Dec, Anxiety F41.9 ; Combined drug dependence excluding opioids, 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 and Unspecified episodic mood disorder F39 [facility] [id number] [place] [address] 61575- 1390 Dec, [facility] [id number] [place] [address] 23508- 1795 Nov, [facility] [id number] [place] [address] 11588- 5547 Nov, [facility] [id number] [place] [address] 10365- 2930 Nov, Other disorder of impulse control F63.89 and Anxiety F41.9 [facility] [id number] [place] [address] 88551- 7796 Oct, [facility] [address] [place] [address] 30262 -3771 14 Oct, 2015 Open wound of left thigh, initial encounter S71.102A [facility] [address] [place] [address] 91441- 5606 Oct, [facility] [id number] [place] [address] 07720- 7551 Sep, Unspecified episodic mood disorder F39 ; Other disorder of impulse control 312.39 ; Combined drug dependence excluding opioids, 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 and Anxiety F41.9 [facility] [id number] [place] [address] 24208- 5575 Sep, Other disorder of impulse control 312.39 ; Combined drug dependence excluding opioids, 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 ; Anxiety F41.9 and Unspecified episodic mood disorder F39 [facility] [address] [place] [address] 25397- 2446 Sep, Other chronic pain G89.29 [facility] [id number] [place] [address] 15915- 0180 Sep, [facility] [id number] [place] [address] 39879- 1359 Sep, [facility] [id number] [place] [address] 04434- 9504 Aug, [facility] [id number] [place] [address] 22558- 6484 Aug, [facility] [id number] [place] [address] 16098- 9521 Aug, [facility] [id number] [place] [address] 23017- 8820 Jul, [facility] [id number] [place] [address] 78797- 9819 Jul, [facility] [id number] [place] [address] 67070- 4924 Jul, [facility] [address] [place] [address] 69826- 0852 Jul, Arthritis M19.90 ; Chronic hepatitis C without hepatic coma B18.2 and Left hip pain M25.552 [facility] [id number] [place] [address] 44146- 8197 Jul, Left knee pain M25.562 [facility] [id number] [place] [address] 24554- 5382 Jul, Combined drug dependence excluding opioids, 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 ; Anxiety F41.9 ; Other disorder of impulse control 312.39 and Unspecified episodic mood disorder F39 [facility] [address] [address]- 3380 13 Jul, 2015 Left knee pain M25.562 [facility] [address] [place] [address] 13342- 0763 Jul, Left knee pain M25.562 and Left hip pain M25.552 [facility] [id number] [place] [address] 09190- 5963 Jul, [facility] [id number] [place] [address] 47828- 1925 June, [facility] [id number] [place] [address] 59831- 7751 June, Combinations of drug dependence excluding opioid type drug, unspecified abuse 304.80 ; Other disorder of impulse control 312.39 ; Unspecified episodic mood disorder F39 and Anxiety F41.9 [facility] [id number] [place] [address] 96588- 4822 June, Other fatigue R53.83 ; Headache R51 and Left knee pain M25.562 [facility] [id number] [place] [address] 22948- 4081 June, Unspecified episodic mood disorder F39 ; Combinations of drug dependence excluding opioid type drug, unspecified abuse 304.80 ; Other disorder of impulse control 312.39 and Anxiety F41.9 [facility] [address] [place] [address] 47102- 0435 June, Anxiety F41.9 [facility] [address] [place] [address] 58345- 0669 June, Pain in left knee M25.562 [facility] [id number] [place] [address] 81155- 6012 June, Anxiety F41.9 and Combinations of drug dependence excluding opioid type drug, unspecified abuse 304.80 [facility] [id number] [place] [address] 83629- 4414 June, Unspecified episodic mood disorder 296.90 ; Combinations of drug dependence excluding opioid type drug, unspecified abuse 304.80 and Other disorder of impulse control 312.39 [facility] [address] [place] [address] 01324- 8635 June, Anxiety F41.9 and Unspecified episodic mood disorder 296.90 [facility] [id number] [place] [address] 88648- 5350 May, Arthritis M19.90 [facility] [id number] [place] [address] 37589- 3566 May, Arthritis M19.90 [facility] [id number] [place] [address] 93738- 3475 May, Anxiety F41.9 ; Combinations of drug dependence excluding opioid type drug, unspecified abuse 304.80 and Other disorder of impulse control 312.39 [facility] [id number] [place] [address] 70462- 3077 May, Left knee pain M25.562 [facility] [id number] [place] [address] 07817- 0312 May, Arthritis M19.90 [facility] [id number] [place] [address] 84299- 8391 May, [facility] [id number] [place] [address] 02401- 8145 May, Anxiety F41.9 ; Unspecified episodic mood disorder 296.90 ; Combinations of drug dependence excluding opioid type drug, unspecified abuse 304.80 and Other disorder of impulse control 312.39 [facility] [id number] [place] [address] 23614- 9142 May, Left knee pain M25.562 [facility] [id number] [place] [address] 54364- 1414 May, Left knee pain M25.562 ; Combinations of drug dependence excluding opioid type drug, unspecified abuse 304.80 ; Other disorder of impulse control 312.39 ; Fibromyalgia M79.7 ; Hypertension I10 ; Unspecified episodic mood disorder 296.90 and Left hip pain M25.552 [facility] [id number] [place] [address] 75555- 6485 May, Unspecified episodic mood disorder 296.90 ; Other disorder of impulse control 312.39 ; Combinations of drug dependence excluding opioid type drug, unspecified abuse 304.80 and Anxiety F41.9 [facility] [address] 49632- 5834 May, Left knee pain M25.562 ; Combinations of drug dependence excluding opioid type drug, unspecified abuse 304.80 ; Other disorder of impulse control 312.39 ; Fibromyalgia M79.7 ; Hypertension I10 ; Unspecified episodic mood disorder 296.90 and Left hip pain M25.[address] 90286- 4693 May, Anxiety F41.9 ; Unspecified episodic mood disorder 296.90 ; Other disorder of impulse control 312.39 and Combinations of drug dependence excluding opioid type drug, unspecified abuse 304.80 [facility] [id number] [place] [address] 47524- 3443 Apr, 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 and 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, implants and grafts, initial encounter T84.82XA [facility] [id number] [place] [address] 20065- 8987 Apr, Anxiety F41.9 ; Unspecified episodic mood disorder 296.90 ; Combinations of drug dependence excluding opioid type drug, unspecified abuse 304.80 and Other disorder of impulse control 312.39 [facility] [address] 73819- 8956 Apr, Arthritis M19.90 [place] [id number] [place] [address] 22505- 6301 Apr, Anxiety F41.9 ; Unspecified episodic mood disorder 296.90 ; Combinations of drug dependence excluding opioid type drug, unspecified abuse 304.80 and Other disorder of impulse control 312.39 [facility] [address] [place] [address] 40473- 0902 17 Apr, 2015 Arthritis M19.90 [facility] [address] [place] [address] 07666- 3332 15 Apr, 2015 [facility] [id number] [place] [address] 15324- 4288 15 Apr, 2015 [facility] [id number] [place] [address] 46462- 7799 14 Apr, 2015 Unspecified episodic mood disorder 296.90 ; Combinations of drug dependence excluding opioid type drug, unspecified abuse 304.80 ; Other disorder of impulse control 312.39 and Anxiety F41.9 [facility] [address] [place] [address] 29396 -8685 11 Apr, 2015 Left knee pain M25.562 [facility] [id number] [place] [address] 37280- 5531 Apr, [facility] [id number] [place] [address] 09328- 5510 29 Mar, 2015 Unspecified episodic mood disorder 296.90 ; Anxiety F41.9 ; Other disorder of impulse control 312.39 and Combinations of drug dependence excluding opioid type drug, unspecified abuse 304.80 [facility] [address] [place] [address] 64790- 8598 Mar, Hyperpigmentation L81.9 [facility] [address] [place] [address] 54228- 3597 Mar, Arthritis M19.90 and Anxiety F41.9 [facility] [id number] [place] [address] 63847- 1215 Mar, Unspecified episodic mood disorder F39 ; Combined drug dependence excluding opioids, 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 ; Other disorder of impulse control F63.89 and Anxiety F41.9 [facility] [id number] [place] [address] 62795- 5937 12 Mar, 2015 Well woman exam Z01.419 ; Other fatigue R53.83 ; Hot flashes N95.1 ; Depression, unspecified depression type F32.9 and Body mass index (BMI) of 23.0-23.9 in adult Z68.23 [facility] [id number] [place] [address] 47627- 9962 11 Mar, 2015 Unspecified episodic mood disorder 296.90 ; Other disorder of impulse control 312.39 and Anxiety F41.9 [facility] [id number] [place] [address] 41811- 4484 11 Mar, 2015 Well woman exam Z01.419 [...] of breast Z12.39 and Limited mobility Z74.09 [facility] [id number] [place] [address] [phone]- 1246 10 Mar, 2015 [facility] [id number] [place] [address] 41045- 6593 Mar, [facility] [address] 61634- 5303 08 Mar, 2015 [facility] [address] 46985- 8683 03 Mar, 2015 Other specified complication of internal orthopedic prosthetic devices, implants and grafts, initial encounter T84.89XA ; Fibromyalgia M79.7 ; Hypertension I10 ; Anemia D64.9 ; Insomnia G47.00 ; Anxiety F41.9 ; Arthritis M19.90 and Migraine G43.909 [facility] [id number] [place] [address] 81676- 2619 Mar, [facility] [id number] [place] [address] 38081- [phone] Feb, [facility] [address] 40[address]- 0127 Feb, Arthritis M19.90 and Anxiety F41.9 [facility] [address] 75945- 6665 Feb, [facility] [address] 22646- 6675 Feb, [facility] [address] 03797- 7575 Feb, [facility] [address] [address] [address]- [address] Feb, [facility] [id number] [place] [address] 23366- 9484 Feb, Anxiety F41.9 [facility] [id number] [place] [address] 32131- 7773 Feb, [facility] [id number] [place] [address] 50759- 6720 Feb, [facility] [id number] [place] [address] 94493- 7819 Feb, 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 and Fibromyalgia M79.7 [facility] [address] [address]39- 0425 Feb, [facility] [id number] [place] [address] 77574- 0401 Jan, [facility] [address] 46718- 8039 Jan, [facility] [id number] [address] 2984 Jan, [facility] [id number] [place] [address] 28619- 2312 Jan, [facility] [id number] [place] [address] 630540- 5162 Jan, [facility] [id number] [place] [address] 39705- 1836 Jan, [facility] [id number] [place] [address] 17897- 3046 Jan, [facility] [id number] [place] [address] 28077- 4130 Jan, [facility] [id number] [place] [address] 94844- 6601 Dec, [facility] [id number] [place] [address] 03204- 2290 Dec, Left knee pain M25.562 [facility] [id number] [place] [address] 06513- 0672 Dec, Left knee pain M25.562 [facility] [id number] [place] [address] 29277- 1693 Dec, Fibromyalgia M79.7 ; Hypertension I10 and Arthritis M19.90 [facility] [id number] [address]- 1682 Dec, [facility] [id number] [place] [address] 93726- 6435 Dec, [facility] [id number] [place] [address] 41894- 5335 Dec, [facility] [id number], [place] [address]- 3000 Dec, [facility] [id number] [address]- 2976 Nov, [facility] [address] [facility] [id number], [place] [address]- 3708 Nov, 2014 [facility] [place] [facility] [address] [id number] [address]- 0923 Nov, [facility] [place] [facility] [address] [facility] [id number], [place] [address]- 4238 Nov, Hypertension I10 [facility] [place] [facility] [address] [facility] [id number] [place] [address] 56619- 8990 23 Oct, 2014 [facility] [place] [facility] [address] [facility] [id number] [place] [address] 17468- 9309 17 Oct, 2014 [facility] [place] [facility] [address] [facility] [id number], [place] [address]- 1044 Oct, 2014 [facility] [place] [facility] [id number] [place] [address] 40075- 4688 Oct, 2014 [facility] [place] [facility] [id number], [place] [address]- 7133 Oct, [facility] [place] [facility] [id number] [place] [address] 59093- 0900 Sep, [facility] [place] [facility] [address], [place] [address]- 2665 Sep, [facility] [place] [facility] [id number], [place] [address]- 1911 Sep, Hip pain associated with recalled total hip arthroplasty hardware 996.77 [facility] [place] [facility] [address] [facility] [id number], [place] [address]- 2659 Sep, [facility] [place] [facility] [address] [facility] [id number], [place] [address]- 8134 Sep, [facility] [place] [facility] [address] [id number], [place] [address]- 8269 Sep, [facility] [place] [facility] [address] [id number], [place] [address]- 9886 Aug, [facility] [place] [facility] [address] [id number] [place] [address]- 1430 Jul, [facility] [place] [facility] [address] [id number] [place] [address]- 8845 June, [facility] [place] [facility] [address] [id number] [place] [address]- 8210 June, [facility] [place] [facility] [address] [id number] [place] [address]- 2083 June, [facility] [place] [facility] [address] [id number] [place] [address]- 0566 June, [facility] [place] [facility] [address] [id number] [place] [address]- 2663 June, [facility] [place] [facility] [address] [id number] [place] [address]- 6489 June, [facility] [place] [facility] [address] [id number] [place] [address]- 9214 May, [facility] [place] [facility] [address] [id number] [place] [address]- 0095 May, [facility] [place] [facility] [address] [id number] [place] [address]- 8410 May, [facility] [place] [facility] [address] [id number] [place] [address]- 2274 Apr, [facility] [place] [facility] [address] [id number] [place] [address]- 6092 30 Apr, 2014 [facility] [place] [facility] [address] [id number] [place] [address]- 4674 Apr, [facility] [place] [facility] [address] [id number] [place] [address]- 1733 Apr, [facility] [place] [facility] [address] [id number] [place] [address]- 3845 Apr, [facility] [place] [facility] [address] [id number] [place] [address]- 7091 13 Apr, 2014 [facility] [place] [facility] [address] [id number] [place] [address]- 6919 Apr, [facility] [place] [facility] [address] [id number] [place] [address]- 8553 Apr, [facility] [place] [facility] [address] [id number] [place] [address]- 9717 Apr, [facility] [place] [facility] [address] [id number] [place] [address]- 9802 Apr, [facility] [place] [facility] [address] [id number] [place] [address]- 5656 Apr, [facility] [place] [facility] [address] [facility] [id number] [place] [address]- 2384 Mar, [facility] [place] [facility] [address] [id number] [place] [address]- 4336 Mar, [facility] [place] [facility] [address] [id number] [place] [address]- 7483 Mar, [facility] [place] [facility] [address] [facility] [id number] [place] [address]- 8622 Mar, [facility] [place] [facility] [address] [facility] [id number] [place] [address]- 7292 Mar, [facility] [place] [facility] [address] [id number] [place] [address]- 0270 Mar, [facility] [place] [facility] [address] [id number] [place] [address]- 0929 Feb, [facility] [place] [facility] [address] [id number] [place] [address]- 6023 Feb, [facility] [place] [facility] [address] [id number] [place] [address]- 0272 Feb, [facility] [place] [facility] [address] [id number] [place] [address]- 5610 Feb, [facility] [place] [facility] [address] [id number] [place] [address]- 5668 Jan, [facility] [place] [facility] [address] [id number] [place] [address]- 2522 Jan, [facility] [place] [facility] [address] [id number] [place] [address]- 3607 Jan, [facility] [place] [facility] [address] [id number] [place] [address]- 0070 Jan, [facility] [place] [facility] [address] [id number] [place] [address]- 8519 Dec, [facility] [place] [facility] [address] [id number] [place] [address]- 9825 Dec, [facility] [place] [facility] [address] [id number] [place] [address]- 8154 Dec, [facility] [place] [facility] [address] [id number] [place] [address]- 3185 Dec, [facility] [place] [facility] [address] [id number] [place] [address]- 5901 Dec, [facility] [place] [facility] [address] [id number] [place] [address]- 8383 Dec, [facility] [place] [facility] [address] [id number] [place] [address]- 7601 Dec, [facility] [place] [facility] [address] [id number] [place] [address]- 0623 Dec, [facility] [place] [facility] [address] [id number] [place] [address]- 3666 Dec, [facility] [place] [facility] [address] [id number] [place] [address]- 9659 Dec, [facility] [place] [facility] [address] [id number] [place] [address]- 5438 Dec, [facility] [place] [facility] [address] [id number] [place] [address]- 9975 31 Nov, 2013 [facility] [place] [facility] [address] [id number] [place] [address]- 1053 28 Nov, 2013 [facility] [place] [facility] [address] [id number] [place] [address]- 9851 28 Nov, 2013 [facility] [place] [facility] [address] [id number] [place] [address]- 1821 17 Nov, 2013 [facility] [place] [facility] [address] [id number] [place] [address]- 6100 17 Nov, 2013 [facility] [place] [facility] [address] [id number] [place] [address]- 7403 15 Nov, 2013 [facility] [place] [facility] [address] [id number] [place] [address]- 1968 15 Nov, 2013 [facility] [place] [facility] [address] [id number] [place] [address]- 9224 15 Nov, 2013 [facility] [place] [facility] [address] [id number] [place] [address]- 9470 15 Nov, 2013 [facility] [place] [facility] [address] [id number] [place] [address]- 5142 14 Nov, 2013 [facility] [place] [facility] [address] [id number] [place] [address]- 6969 14 Nov, 2013 [facility] [place] [facility] [address] [id number] [place] [address]- 0667 14 Nov, 2013 [facility] [place] [facility] [address] [id number] [place] [address]- 4590 14 Nov, 2013 [facility] [place] [facility] [address] [id number] [place] [address]- 7462 13 Nov, 2013 [facility] [place] [facility] [address] [id number] [place] [address]- 5993 13 Nov, 2013 [facility] [place] [facility] [address] [id number] [place] [address]- 3393 Nov, [facility] [place] [facility] [address] [id number] [place] [address]- 8948 11 Nov, 2013 [facility] [place] [facility] [address] [id number] [place] [address]- 9938 Nov, [facility] [place] [facility] [address] [id number] [place] [address]- 0714 Nov, 2013 [facility] [place] [facility] [address] [id number] [place] [address]- 5932 Nov, 2013 [facility] [place] [facility] [address] [id number] [place] [address]- 4973 Nov, [facility] [place] [facility] [address] [id number] [place] [address]- 7281 30 Oct, 2013 [facility] [place] [facility] [address] [id number] [place] [address]- 7522 30 Oct, 2013 [facility] [place] [facility] [address] [id number] [place] [address]- 0009 26 Oct, 2013 [facility] [place] [facility] [address] [id number] [place] [address]- 9813 26 Oct, 2013 [facility] [place] [facility] [address] [id number], [place] [address]- 0200 22 Oct, 2013 [facility] [place] [facility] [address] [id number], [place] [address]- 2395 22 Oct, 2013 [facility] [place] [facility] [address] [id number], [place] [address]- 8575 18 Oct, 2013 [facility] [place] [facility] [address] [id number] [place] [address]- 2544 18 Sep, 2013 [facility] [place] [facility] [address] [id number], [place] [address]- 5667 18 Oct, 2013 [facility] [place] [facility] [address] [id number], [place] [address]- 0025 18 Oct, 2013 [facility] [place] [facility] [address] [id number], [place] [address]- 5774 Oct, [facility] [place] [facility] [address] [id number] [place] [address]- 7393 Oct, [facility] [place] [facility] [address] [id number] [place] [address]- 3167 Oct, [facility] [place] [facility] [address] [id number] [place] [address]- 6699 Oct, [facility] [place] [facility] [address] [id number] [place] [address]- 7228 Sep, [facility] [place] [facility] [address] [id number] [place] [address]- 9851 Sep, [facility] [place] [facility] [address] [id number] [place] [address]- 3904 Sep, [facility] [place] [facility] [address] [id number] [place] [address]- 2742 Sep, [facility] [place] [facility] [address] [id number] [place] [address]- 4199 Sep, [facility] [place] [facility] [address] [id number] [place] [address]- 1040 Sep, [facility] [place] [facility] [address] [id number] [place] [address]- 6230 Sep, [facility] [place] [facility] [address] [id number] [place] [address]- 9288 Sep, [facility] [place] [facility] [address] [id number] [place] [address]- 2279 Sep, [facility] [place] [facility] [address] [id number] [place] [address]- 2320 Sep, [facility] [place] [facility] [address] [id number] [place] [address]- 5648 Sep, [facility] [place] [facility] [address] [id number] [place] [address]- 3888 Sep, [facility] [place] [facility] [address] [id number] [place] [address]- 3784 Sep, [facility] [place] [facility] [address] [id number] [place] [address]- 3522 Sep, [facility] [place] [facility] [address] [id number] [place] [address]- 2708 Sep, [facility] [place] [facility] [address] [id number] [place] [address]- 2556 Sep, [facility] [place] [facility] [address] [id number] [place] [address]- 5281 Sep, [facility] [place] [facility] [address] [id number] [place] [address]- 4647 Sep, [facility] [place] [facility] [address] [id number] [place] [address]- 6347 Aug, [facility] [place] [facility] [address] [id number] [place] [address]- 0721 Aug, [facility] [place] [facility] [address] [id number] [place] [address]- 3095 Aug, [facility] [place] [facility] [address] [id number] [place] [address]- 5806 Aug, [facility] [place] [facility] [address] [id number] [place] [address]- 0436 Aug, [facility] [place] [facility] [address] [id number] [place] [address]- 4015 Aug, [facility] [place] [facility] [address] [id number] [place] [address]- 9352 Jul, [facility] [place] [facility] [address] [id number] [place] [address]- 6971 Jul, [facility] [place] [facility] [address] [id number] [place] [address]- 8293 Jul, [facility] [place] [facility] [address] [id number] [place] [address]- 3428 Jul, [facility] [place] [facility] [address] [id number] [place] [address]- 9633 June, [facility] [place] [facility] [address] [id number] [place] [address]- 7616 June, [facility] [place] [facility] [address] [id number] [place] [address]- 4950 June, [facility] [place] [facility] [address] [id number] [place] [address]- 2199 June, [facility] [place] [facility] [address] [id number] [place] [address]- 5860 June, [facility] [place] [facility] [address] [id number] [place] [address]- 3925 June, [facility] [place] [facility] [address] [id number] [place] [address]- 1411 June, [facility] [place] [facility] [address] [id number] [place] [address]- 1158 May, [facility] [place] [facility] [address] [id number] [place] [address]- 9323 May, [facility] [place] [facility] [address] [id number] [place] [address]- 6850 May, [facility] [place] [facility] [address] [id number] [place] [address]- 4258 May, [facility] [place] [facility] [address] [id number] [place] [address]- 8711 May, [facility] [place] [facility] [address] [id number] [place] [address]- 8130 May, [facility] [place] [facility] [address] [id number] [place] [address]- 3836 Apr, [facility] [place] [facility] [address] [id number] [place] [address]- 6721 Apr, [facility] [place] [facility] [address] [id number] [place] [address]- 4663 28 Apr, 2013 [facility] [place] [facility] [address] [id number] [place] [address]- 9904 28 Apr, 2013 [facility] [place] [facility] [address] [id number] [place] [address]- 7801 14 Apr, 2013 [facility] [place] [facility] [address] [id number] [place] [address]- 3946 14 Apr, 2013 [facility] [place] [facility] [address] [id number] [place] [address]- 8882 Apr, [facility] [place] [facility] [address] [id number] [place] [address]- 4319 Apr, [facility] [place] [facility] [address] [id number] [place] [address]- 0567 10 Apr, 2013 [facility] [place] [facility] [address] [id number] [place] [address]- 4423 10 Apr, 2013 [facility] [place] [facility] [address] [id number] [place] [address]- 8885 04 Apr, 2013 [facility] [place] [facility] [address] [id number] [place] [address]- 9291 04 Apr, 2013 [facility] [place] [facility] [address] [id number] [place] [address]- 8786 Apr, [facility] [place] [facility] [address] [id number] [place] [address]- 4972 Apr, [facility] [place] [facility] [address] [id number] [place] [address]- 5178 Mar, [facility] [place] [facility] [address] [id number] [place] [address]- 6356 Mar, [facility] [place] [facility] [address] [id number] [place] [address]- 4252 05 Mar, 2013 [facility] [place] [facility] [address] [id number] [place] [address]- 0402 Feb, [facility] [address] [id number] [place] [address]- 8903 Feb, [facility] [place] [facility] [address] [id number] [place] [address]- 7987 Feb, [facility] [place] [facility] [address] [id number] [place] [address]- 5454 Feb, [facility] [place] [facility] [address] [id number] [place] [address]- 9965 Feb, [facility] [place] [facility] [address] [id number] [place] [address]- 8319 Feb, [facility] [place] [facility] [address] [id number] [place] [address]- 5229 Feb, [facility] [place] [facility] [address] [id number] [place] [address]- 0476 Feb, [facility] [place] [facility] [address] [id number] [place] [address] Feb, [facility] [place] [facility] [address] [id number] [place] [address] 74[address] Feb, [facility] [place] [facility] [address] [id number] [place] [address] Jan, [facility] [place] [facility] [address] [id number] [place] [address] Jan, [facility] [place] [facility] [address] [id number], [place] [address] Jan, [facility] [place] [facility] [address] [id number] [place] [address] 1775 Jan, [facility] [place] [facility] [address] [id number] [place] [address] Jan, [facility] [place] [facility] [address] [id number] [address] Jan, [facility] [place] [facility] [address] [id number], [place] [address] Jan, [facility] [address] [id number] [place] [address]84 23 Jan, 2013 [facility] [address] [id number] [place] [address] Jan, [facility] [address] [facility] [id number] [place] [address] Jan, [facility] [address] [id number] [place] [address] 17 Jan, 2013 [facility] [address] [id number] [place] [address] 17 Jan, 2013 [facility] [address] [id number] [place] [address] 16 Jan, 2013 [facility] [address] [facility] [id number] [place] [address]97 Jan, [facility] [place] [facility] [address] [id number] [place] [address] Jan, [facility] [address] [facility] [id number] [place] [address] 132[address] Jan, [facility] [address] [facility] [id number] [place] [address] Jan, [facility] [address] [facility] [id number] [place] [address] 05 Jan, 2013 [facility] [place] [facility] [address] [id number], [place] [address] 05 Jan, 2013 [facility] [place] [facility] [address] [id number] [place] [address] Jan, [facility] [place] [facility] [address] [facility] [id number] [place] [address] 4088 05 Jan, 2013 [facility] [place] [facility] [address] [facility] [id number] [place] [address] Dec, [facility] [place] [facility] [address] [id number] [place] [address] Dec, [facility] [place] [facility] [address] [id number] [place] [address] 8305 Dec, [facility] [place] [facility] [address] [id number] [place] [address] 3684 Dec, [facility] [place] [facility] [address] [id number] [place] [address] 9938 Dec, [facility] [place] [facility] [address] [id number] [place] [address] 2935 Dec, [facility] [place] [facility] [address] [id number] [place] [address]- 2514 Dec, [facility] [place] [facility] [address] [id number] [place] [address] 49[address] Dec, [facility] [place] [facility] [address] [id number] [place] [address] Dec, [facility] [place] [facility] [address] [id number] [place] [address] 4469 Dec, [facility] [place] [facility] [address] [id number] [place] [address] Nov, [facility] [place] [facility] [address] [id number] [place] [address] 8795 Nov, [facility] [place] [facility] [address] [id number] [place] [address] Nov, [facility] [place] [facility] [address] [id number] [place] [address] 8688 Nov, [facility] [place] [facility] [address] [id number] [place] [address] 7[address] Nov, [facility] [place] [facility] [address] [id number] [place] [address] 7921 Nov, [facility] [place] [facility] [address] [id number] [place] [address] 9[address] Nov, [facility] [place] [facility] [address] [id number] [place] [address]281 Nov, [facility] [place] [facility] [address] [id number] [place] [address] 1412 Nov, [facility] [place] [facility] [address] [id number] [place] [address] 9361 Nov, [facility] [place] [facility] [address] [id number] [place] [address] 37[address] Oct, [facility] [place] [facility] [address] [id number] [place] [address] 490[address] Oct, [facility] [place] [facility] [address] [id number] [place] [address] 0749 Oct, [facility] [place] [facility] [address] [id number] [place] [address]- 0517 Oct, [facility] [place] [facility] [address] [id number] [place] [address]- 9542 Oct, [facility] [place] [facility] [address] [id number] [place] [address] 1621 Sep, [facility] [place] [facility] [address] [id number] [place] [address] 8645 Sep, [facility] [place] [facility] [address] [id number] [place] [address] 0430 Aug, [facility] [place] [facility] [address] [id number], [place] [address] Aug, [facility] [place] [facility] [address] [id number] [place] [address]- 9982 Aug, [facility] [place] [facility] [address] [id number] [place] [address] 0421 Aug, [facility] [place] [facility] [address] [id number] [place] [address] 2210 Aug, [facility] [place] [facility] [address] [id number] [place] [address]336 Aug, [facility] [address] [id number] [place] [address]117 Aug, [facility] [address] [id number] [place] [address] 90[address] Jul, [facility] [address] [id number] [place] [address] 9312 Jul, [facility] [address] [id number] [place] [address] 3398 June, [facility] [address] [id number] [place] [address] 7582 June, [facility] [address] [id number] [place] [address] 60[address] June, [facility] [address] [id number] [place] [address] 9064 June, [facility] [address] [id number] [place] [address] 6[address] June, [facility] [address] [id number] [place] [address] 2958 June, [facility] [address] [id number] [place] [address]- 5878 June, [facility] [address] [id number] [place] [address] 75[address] June, [facility] [address] [id number] [place] [address]- 2546 June, [facility] [address] [id number] [place] [address] June, [facility] [address] [id number] [place] [address] June, [facility] [address] [id number] [place] [address] May, [facility] [address] [id number] [place] [address] May, [facility] [address] [id number] [place] [address] May, [facility] [address] [id number] [place] [address] 87[address] May, [facility] [address] [id number] [place] [address] Apr, [facility] [address] [id number] [place] [address] 8967 Apr, [facility] [address] [id number] [place] [address] Apr, [facility] [address] [id number] [place] [address] Mar, [facility] [address] [id number] [place] [address] 66[address] Mar, [facility] [address] [id number] [place] [address] 6[address] Feb, [facility] [address] [id number] [place] [address] 7[address] Feb, [facility] [address] [id number] [place] [address] 5[address] Feb, [facility] [address] [id number] [place] [address] 1599 Feb, [facility] [place] [facility] [address] [id number] [place] [address] 2583 Feb, [facility] [place] [facility] [address] [id number] [place] [address] 14 Feb, 2012 [facility] [place] [facility] [address] [id number] [place] [address] 13[address] Feb, [facility] [place] [facility] [address] [id number] [place] [address] 295[address] Jan, [facility] [place] [facility] [address] [id number] [place] [address] 6947 31 Jan, 2012 [facility] [place] [facility] [address] [id number] [place] [address] Jan, [facility] [place] [facility] [address] [id number] [place] [address] 17 Jan, 2012 [facility] [place] [facility] [address] [id number] [place] [address]- [address]87 17 Jan, 2012 [facility] [place] [facility] [address] [id number] [place] [address] 0157 Jan, [facility] [place] [facility] [address] [id number] [place] [address]- 2965 Jan, [facility] [place] [facility] [address] [id number] [place] [address] 1900 Jan, [facility] [place] [facility] [address] [id number] [place] [address] 6[address] Jan, [facility] [place] [facility] [address] [id number] [place] [address] 655[address] Jan, [facility] [place] [facility] [address] [id number] [place] [address] 4014 Jan, [facility] [place] [facility] [address] [id number] [place] [address]- 5674 Dec, [facility] [place] [facility] [address] [id number] [place] [address] 5816 Dec, [facility] [place] [facility] [address] [id number] [place] [address] 1018 Dec, [facility] [place] [facility] [address] [id number] [place] [address] 75[address] Dec, [facility] [place] [facility] [address] [id number] [place] [address] 6221 Nov, [facility] [place] [facility] [address] [id number] [place] [address] 5196 22 Nov, 2011 [facility] [place] [facility] [address] [id number] [place] [address] 4611 08 Nov, 2011 [facility] [place] [facility] [address] [id number] [place] [address] 1826 27 Oct, 2011 [facility] [place] [facility] [address] [id number] [place] [address] 8206 24 Oct, 2011 [facility] [place] [facility] [address] [id number] [place] [address] 21 Oct, 2011 [facility] [place] [facility] [address] [id number] [place] [address] 3[address] 10 Oct, 2011 [facility] [place] [facility] [address] [id number] [place] [address]106 07 Oct, 2011 [facility] [place] [facility] [address] [id number] [place] [address]- 9124 04 Oct, 2011 [facility] [place] [facility] [address] [id number] [place] [address]- 0771 04 Oct, 2011 [facility] [place] [facility] [address] [id number] [place] [address] 2126 29 Sep, 2011 [facility] [place] [facility] [address] [id number] [place] [address] Sep, [facility] [place] [facility] [address] [id number] [place] [address] 2542 Sep, [facility] [place] [facility] [address] [id number] [place] [address]- 2542 Sep, [facility] [place] [facility] [address] [id number] [place] [address] 6858 Sep, [facility] [place] [facility] [address] [id number] [place] [address]- 2544 Aug, [facility] [place] [facility] [address] [id number] [place] [address] 6976 Aug, [facility] [place] [facility] [address] [id number] [place] [address] 5008 17 Aug, 2011 [facility] [place] [facility] [address] [id number] [place] [address]- 3159 16 Aug, 2011 [facility] [place] [facility] [address] [id number] [place] [address]- 9678 13 Aug, 2011 [facility] [place] [facility] [address] [id number] [place] [address]- 0426 Aug, [facility] [place] [facility] [address] [id number] [place] [address] 0362 Aug, [facility] [place] [facility] [address] [id number] [place] [address]- 5[address] Jul, [facility] [place] [facility] [address] [id number] [place] [address] 00[address] Jul, [facility] [place] [facility] [address] [id number] [place] [address] 9439 Jul, [facility] [place] [facility] [address] [id number] [place] [address]- 1051 Jul, [facility] [place] [facility] [address] [id number] [place] [address] 5486 Jul, [facility] [place] [facility] [address] [id number] [place] [address] 4501 Jul, [facility] [place] [facility] [address] [id number] [place] [address]- 6769 Jul, [facility] [place] [facility] [address] [id number] [place] [address] 5779 Jul, [facility] [place] [facility] [address] [id number] [place] [address]- 8551 05 Jul, 2011 [facility] [place] [facility] [address] [id number] [place] [address] 2197 June, [facility] [place] [facility] [address] [id number] [place] [address] 0163 June, [facility] [address] [id number] [place] [address] 2349 June, [facility] [address] [id number] [place] [address] 0375 June, [facility] [address] [id number] [place] [address] 73[address] June, [facility] [address] [id number] [place] [address]- 6048 June, [facility] [address] [id number] [place] [address]- 4005 June, [facility] [address] [id number] [place] [address] 4777 June, [facility] [address] [id number] [place] [address] 8960 May, [facility] [address] [id number] [place] [address]- 3363 May, [facility] [address] [id number] [place] [address]- 3856 May, [facility] [address] [id number] [place] [address]- 4531 May, [facility] [address] [id number] [place] [address]- 4319 16 May, 2011 [facility] [place] [facility] [address] [id number] [place] [address]- 4954 16 May, 2011 [facility] [place] [facility] [address] [id number] [place] [address]- 3752 May, [facility] [place] [facility] [address] [id number] [place] [address]- 1591 Apr, [facility] [address] [id number] [place] [address]- 7185 Apr, [facility] [place] [facility] [address] [id number] [place] [address]- 5986 Apr, [facility] [place] [facility] [address] [id number] [place] [address]- 0676 Apr, [facility] [place] [facility] [address] [id number] [place] [address] 2546 Apr, [facility] [place] [facility] [address] [id number] [place] [address]- 3186 06 Apr, 2011 [facility] [place] [facility] [address] [id number] [place] [address] 2545 Apr, [facility] [place] [facility] [address] [id number] [place] [address]- 2716 Mar, [facility] [place] [facility] [address] [facility] [id number] [place] [address]- 0456 Mar, [facility] [place] [facility] [address] [id number] [place] [address]- 9761 14 Mar, 2011 [facility] [place] [facility] [address] [id number] [place] [address]- 6321 Mar, [facility] [place] [facility] [address] [facility] [id number] [place] [address]- 6552 Mar, [facility] [place] [facility] [address] [id number] [place] [address] 9084 Mar, [facility] [place] [facility] [address] [id number] [place] [address]- 2978 Mar, [facility] [place] [facility] [address] [id number] [place] [address] 2546 Feb, [facility] [place] [facility] [address] [id number] [place] [address]- 6536 Feb, [facility] [place] [facility] [address] [facility] [id number] [place] [address]- 1246 Feb, [facility] [place] [facility] [address] [id number], [place] [address]- 9204 Feb, [facility] [address] [id number] [place] [address]- 3019 Feb, [facility] [address] [id number] [place] [address]- 0380 Feb, [facility] [address] [id number] [place] [address]- 0532 Feb, [facility] [address] [id number] [place] [address]- 6530 Feb, [facility] [address] [id number] [place] [address]- 7146 Feb, [facility] [address] [id number] [place] [address]- 8780 Feb, [facility] [address] [facility] [id number] [place] [address]- 7865 Jan, [facility] [address] [id number] [place] [address]- 8629 Jan, [facility] [address] [id number] [place] [address]- 1738 Jan, [facility] [address] [facility] [id number] [place] [address]- 2603 Jan, [facility] [address] [id number] [place] [address]- 5149 Jan, [facility] [place] [facility] [address] [id number] [place] [address]- 2544 Jan, [facility] [place] [facility] [address] [id number] [place] [address]- 5856 15 Jan, 2011 [facility] [place] [facility] [address] [facility] [id number] [place] [address]- 5549 15 Jan, 2011 [facility] [address] [facility] [id number] [place] [address]- 3179 08 Jan, 2011 [facility] [place] [facility] [address] [id number] [place] [address]- 2235 Jan, [facility] [place] [facility] [address] [id number] [place] 4747 Jan, [facility] [place] [facility] [address] [id number] [place] [address]- 7328 Dec, [facility] [place] [facility] [address] [id number] [place] [address]- 2916 Dec, [facility] [place] [facility] [address] [id number] [place] [address]- 4503 17 Dec, 2010 [facility] [place] [facility] [address] [id number] [place] [address]- 3658 16 Dec, 2010 [facility] [place] [facility] [address] [id number] [place] [address]- 3819 14 Dec, 2010 [facility] [place] [facility] [address] [id number] [place] [address]- 6340 Dec, [facility] [place] [facility] [address] [id number] [place] [address]- 6346 Dec, [facility] [place] [facility] [address] [id number] [place] [address]- 6141 Dec, [facility] [place] [facility] [address] [id number] [place] [address]- 2571 Dec, [facility] [place] [facility] [address] [id number] [place] [address]- 5644 Nov, [facility] [place] [facility] [address] [id number] [place] [address]- 3703 Nov, [facility] [place] [facility] [address] [id number] [place] [address]- 6672 Nov, [facility] [place] [facility] [address] [id number] [place] [address]- 2149 Nov, [facility] [place] [facility] [address] [id number] [place] [address]- 7113 Nov, [facility] [address] [facility] [id number], [place] [address]- 8252 Nov, [facility] [address] [facility] [id number], [place] [address]- 3124 Aug, [facility] [address] [facility] [id number][place] [address]- [address] 14 Feb, 2010 [facility] [address] [facility] [id number], [place] [address]- 8464 14 Jan, 2010 [facility] [address] [facility] [id number], [place] [address]- 7320 Jan, [facility] [address] [facility] [id number], [place] [address]- 8169 Jan, [facility] [address] [facility] [id number], [place] [address]- 2013 Jan, [facility] [address] [facility] [id number], [place] [address]- 0368 Jan, [facility] [address] [facility] [id number], [place] [address]- 4299 Dec, [facility] [address] [facility] [id number], [place] [address]- 4473 Dec, [facility] [address] [facility] [id number], [place] [address]- 6939 Dec, [facility] [address] [facility] [id number], [place] [address]- 4297 Dec, [facility] [address] [facility] [id number], [place] [address]- 0985 Nov, [facility] [address] [facility] [id number], [place] [address]- 9160 Nov, [facility] [address] [facility] [id number], [place] [address]- 9620 Nov, IMMUNIZATIONS No Known Immunizations SOCIAL HISTORY Never Assessed REASON FOR VISIT pt poured hot coffee all over herself and 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 wants them looked at to make sure they arent infected. pt is slurring her words. suraj PLAN OF CARE Activity Details Follow Up prn Reason: VITAL SIGNS Height 68 in 2016-11-01 Weight 175 lbs 2016-11-01 Temperature 98.0 degrees Fahrenheit 2016-11-01 Heart Rate 74 bpm 2016-11-01 Respiratory Rate 20 2016-11-01 BMI 26.61 kg/m2 2016-11-01 Blood pressure systolic 130 mmHg 2016-11-01 Blood pressure diastolic 86 mmHg 2016-11-01 MEDICATIONS Medication Instructions Dosage Frequency Start Date End Date Duration Status Lyrica 150 MG Orally 3 times a day 1 capsule 8h Active Fentanyl 50 MCG/HR Transdermal 72hrs 1 patch to skin Oct, 30 days Active Clonidine HCl 0.1 MG Orally twice a day 1 tablet 12h 30 Active Promethazine HCl 25 MG Orally every 12 hrs 1 tablet as needed 12h 30 Active Klonopin 1 MG Orally 3 times a day 1 tablet 8h 30 days Active Cyclobenzaprine HCl 10 MG TAKE ONE TABLET BY MOUTH THREE TIMES DAILY 30 Active Pantoprazole Sodium 40 MG Orally Once a day 1 tablet 24h Active Aspirin 81 MG Orally Once a day 1 tablet 24h 30 Active Lyrica 100 MG TAKE ONE CAPSULE BY MOUTH THREE TIMES DAILY 30 Active Silvadene 1 % Externally Once a day 1 application to affected area 24h Oct, Oct, 7 days Active Clindamycin HCl 300 MG Orally every 12 hrs 1 capsule 12h Oct, Nov, 10 days Active Sumatriptan Succinate 100 MG Orally Once a day 1 tablet as needed one time 24h 30 Active Nabumetone 500 MG Orally [...]
--- OUTSIDE RECORDS SUMMARY | 2018-01-13 22:19 | XMS REPORT ---
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 Active 57485624 Problem Unspecified episodic mood disorder F39 Active 92921659 Problem Hypertension I10 Active 78144505 Problem Venous insufficiency (chronic) (peripheral) I87.2 Active 419942914 Problem Gastroesophageal reflux disease, esophagitis presence not specified K21.9 Active 787551414 Problem Other chronic pain G89.29 Active 78704249 Problem Chronic hepatitis C without hepatic coma B18.2 Active 786896551 Problem Other psychoactive substance dependence, uncomplicated F19.20 Active 5276454 Problem 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, 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 072280898 ALLERGIES No Information ENCOUNTERS Encounter Location Date Diagnosis [facility] [id number] [address] June, [facility] [id number] [place] [address] 69318- 6525 June, Arthritis M19.90 [facility] [id number] [place] [address] 61948- 1587 June, [facility] [id number] [place] [address] 46771- 6626 June, [facility] [address] [place] [address] 43787- 7177 June, Unspecified episodic mood disorder F39 [facility] [address] [address] 1191 May, Unspecified episodic mood disorder F39 [facility] [id number] [place] [address] 46267- 5375 May, [facility] [id number] [place] [address] 43515- 9312 May, Arthritis M19.90 [facility] [id number] [place] [address] 78389 -4752 May, Dysuria R30.0 ; Abscess L02.91 and Acute cystitis without hematuria N30.00 [facility] [id number] [place] [address] 64810- 7088 May, 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 ; Unspecified episodic mood disorder F39 ; Combined drug dependence excluding opioids, 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 ; Anxiety F41.9 and Other psychoactive substance dependence, uncomplicated F19.20 [facility] [id number] [place] [address] 18662- 5636 May, [facility] [id number] [place] [address] 18250- 4139 May, 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 ; Unspecified episodic mood disorder F39 ; Combined drug dependence excluding opioids, 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 ; Other psychoactive substance dependence, uncomplicated F19.20 and Anxiety F41.9 [facility] [address] [place] [address] 96934- 2717 May, Other chronic pain G89.29 ; Left hip pain M25.552 ; Hypertension I10 ; 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, 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 and Unspecified episodic mood disorder F39 [facility] [address] [place] [address] 08837- 1158 Apr, [facility] [id number] [place] [address] 26511 -4057 Apr, Neck pain M54.2 ; Left hip pain M25.552 and Fall, initial encounter W19.XXXA [facility] [id number] [place] [address] 40827- 8263 Apr, Unspecified episodic mood disorder F39 ; Combined drug dependence excluding opioids, 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 ; Anxiety F41.9 ; Other psychoactive substance dependence, uncomplicated F19.20 and 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 [facility] [id number] [place] [address] 25295- 0946 Apr, [facility] [id number] [place] [address] 34883- 7720 Apr, Arthritis M19.90 and Unspecified episodic mood disorder F39 [facility] [id number] [place] [address] 03222- 4491 Apr, Unspecified episodic mood disorder F39 [facility] [id number] [place] [address] 21984- 6866 Apr, [facility] [id number] [place] [address] 08830- 1280 Apr, [facility] [id number] [place] [address] 03379- 0444 Apr, Unspecified episodic mood disorder F39 ; Combined drug dependence excluding opioids, 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 ; Anxiety F41.9 ; Other psychoactive substance dependence, uncomplicated F19.20 and 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 [facility] [address] [place] [address] 42241- 9005 Mar, Unspecified episodic mood disorder F39 [facility] [id number] [place] [address] 14637- 5064 Mar, Gastroesophageal reflux disease, esophagitis presence not specified K21.9 [facility] [id number] [place] [address] 81738- 1471 Mar, Arthritis M19.90 and Unspecified episodic mood disorder F39 [facility] [address] [place] [address] 59165- 3434 Feb, [facility] [id number] [place] [address] 55014 2546 Feb, [facility] [id number] [place] [address] 29689- 4876 Feb, [facility] [id number] [place] [address] 86223- 9242 Feb, Arthritis M19.90 [facility] [id number] [place] [address] 24177 2546 Feb, Non-pressure chronic ulcer of right calf, 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 ; Unspecified episodic mood disorder F39 and Left hip pain M25.552 [facility] [id number] [place] [address] 16568- 4164 Feb, [facility] [id number] [place] [address] 98392- 6391 Feb, [facility] [id number] [place] [address] 74197- 0527 Jan, Arthritis M19.90 [facility] [id number] [place] [address] 16819- 5203 Jan, Left hip pain M25.552 and Non-pressure chronic ulcer of right calf, 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 [facility] [address] [place] [address] 89790- 6668 Jan, Chronic hepatitis C without hepatic coma B18.2 [facility] [id number] [place] [address] 02509- 4868 Jan, Encounter for immunization Z23 ; Venous insufficiency ( chronic) (peripheral) I87.2 ; Non-pressure chronic ulcer of unspecified calf limited to breakdown of skin L97.201 and Gastroesophageal reflux disease, esophagitis presence not specified K21.9 [facility] [address] [place] [address] 24071- 1336 Jan, [facility] [id number] [place] [address] 42703- 5533 Jan, Chronic hepatitis C without hepatic coma B18.2 and Encounter for immunization Z23 [facility] [id number] [place] [address] 94635- 3843 Jan, Arthritis M19.90 [facility] [id number] [place] [address] 60309- 6062 Jan, [facility] [id number] [place] [address] 89044- 7940 Dec, [facility] [id number] [place] [address] 90812- 8394 Dec, Unspecified episodic mood disorder F39 [facility] [id number] [place] [address] 95239- 8468 Dec, Arthritis M19.90 [facility] [id number] [place] [address] 77398- 9494 Dec, Arthritis M19.90 [facility] [id number] [place] [address] 24758- 1936 Nov, [facility] [id number] [place] [address] 19974- 2342 Nov, [facility] [id number] [place] [address] 68071- 0513 Nov, Other psychoactive substance dependence, uncomplicated F19.20 ; 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, 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 and Chronic hepatitis C without hepatic coma B18.2 [facility] [id number] [place] [address] 81334- 8638 Nov, Arthritis M19.90 [facility] [address] [address] Oct, Partial thickness burn of abdomen, initial encounter T21.22XA [facility] [address] [address]- 5968 Oct, [facility] [id number] [place] [address] 66910- 6836 Sep, Arthritis M19.90 [facility] [id number] [place] [address] 46385- 4926 Sep, [facility] [id number] [place] [address] 35929- 3746 Sep, [facility] [id number] [place] [address] 23201- 6812 Sep, Unspecified episodic mood disorder F39 ; Chronic hepatitis C without hepatic coma B18.2 and Left hip pain M25.552 [facility] [id number] [place] [address] 24542- 7096 Sep, Arthritis M19.90 and Left hip pain M25.552 [facility] [id number] [place] [address] 71774- 7416 Aug, [facility] [id number] [place] [address] 08942- 6851 Aug, [facility] [address] [place] [address] 70152- 1665 Aug, Chronic hepatitis C without hepatic coma B18.2 [facility] [address] [address]- 5954 Aug, [facility] [id number] [place] [address] 89703- 2107 Aug, Chronic hepatitis C without hepatic coma B18.2 [facility] [id number] [place] [address] 01746- 0086 Aug, 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, 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 [facility] [id number] [place] [address] 95156- 0444 Aug, [facility] [address] [place] [address] 84022- 6231 Aug, Chronic hepatitis C without hepatic coma B18.2 and Hypertension I10 [facility] [id number] [place] [address] 96990- 5269 Jul, [facility] [id number] [place] [address] 81608- 0362 June, [facility] [id number] [place] [address] 94041- 3861 Apr, Fibromyalgia M79.7 ; Left hip pain M25.552 and Decubitus ulcer of sacral region, stage 1 L89.151 [facility] [id number] [place] [address] 35826- 1731 Apr, [facility] [id number] [place] [address] 30234- 9065 Apr, [facility] [id number] [place] [address] 28564- 4842 Feb, [facility] [id number] [place] [address] 81309- 9663 Dec, Anxiety F41.9 ; Combined drug dependence excluding opioids, 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 and Unspecified episodic mood disorder F39 [facility] [id number] [place] [address] 69406- 7835 Dec, [facility] [id number] [place] [address] 20383- 3260 Nov, [facility] [id number] [place] [address] 68091- 0558 Nov, [facility] [id number] [place] [address] 45638- 7399 Nov, 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 and Anxiety F41.9 [facility] [id number] [place] [address] 11127- 5789 Sep, Other disorder of impulse control 312.39 ; Combined drug dependence excluding opioids, 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 ; Anxiety F41.9 and Unspecified episodic mood disorder F39 [facility] [id number] [place] [address] 17726- 6812 Sep, Other chronic pain G89.29 [facility] [id number] [place] [address] 61282- 9560 Sep, [facility] [id number] [place] [address] 71913- 7652 Sep, [facility] [address] [place] [address] 07934- 7437 Aug, [facility] [id number] [place] [address] 84692- 7342 Aug, [facility] [id number] [place] [address] 16549- 2051 Aug, [facility] [id number] [place] [address] 06501- 8189 Jul, [facility] [id number] [place] [address] 79920- 0984 Jul, [facility] [id number] [place] [address] 82708- 2964 Jul, [facility] [id number] [place] [address] 60539- 2216 17 Jul, 2015 Arthritis M19.90 ; Chronic hepatitis C without hepatic coma B18.2 and Left hip pain M25.552 [facility] [id number] [place] [address] 98993- 2196 Jul, Left knee pain M25.562 [facility] [id number] [place] [address] 49322- 5348 Jul, Combined drug dependence excluding opioids, 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 ; Anxiety F41.9 ; Other disorder of impulse control 312.39 and Unspecified episodic mood disorder F39 [facility] [id number] [place] [address] 08595- 6388 Jul, Left knee pain M25.562 [facility] [address] 06896- 2213 Jul, Left knee pain M25.562 and Left hip pain M25.552 [facility] [id number] [place] [address] 55122- 5737 Jul, [facility] [id number] [place] [address] 56113- 4410 June, [facility] [id number] [place] [address] 36133- 5356 June, Combinations of drug dependence excluding opioid type drug, unspecified abuse 304.80 ; Other disorder of impulse control 312.39 ; Unspecified episodic mood disorder F39 and Anxiety F41.9 [facility] [id number] [place] [address] 06592- 9058 June, Other fatigue R53.83 ; Headache R51 and Left knee pain M25.562 [facility] [id number] [place] [address] 50408- 7935 June, Unspecified episodic mood disorder F39 ; Combinations of drug dependence excluding opioid type drug, unspecified abuse 304.80 ; Other disorder of impulse control 312.39 and Anxiety F41.9 [facility] [address] [address]- 0090 June, Anxiety F41.9 [facility] [id number] [place] [address] 80543- 4125 June, Pain in left knee M25.562 [facility] [id number] [place] [address] 59972- 6538 June, Anxiety F41.9 and Combinations of drug dependence excluding opioid type drug, unspecified abuse 304.80 [facility] [id number] [place] [address] 39384- 6743 June, Unspecified episodic mood disorder 296.90 ; Combinations of drug dependence excluding opioid type drug, unspecified abuse 304.80 and Other disorder of impulse control 312.39 [facility] [id number] [place] [address] 79606- 7331 June, Anxiety F41.9 and Unspecified episodic mood disorder 296.90 [facility] [address] [place] [address] 16306- 8975 May, Arthritis M19.90 [facility] [id number] [place] [address] 25908- 0641 May, Arthritis M19.90 [facility] [address] [place] [address] 65329- 8099 May, Anxiety F41.9 ; Combinations of drug dependence excluding opioid type drug, unspecified abuse 304.80 and Other disorder of impulse control 312.39 [facility] [address] [place] [address] 13894- 2374 May, Left knee pain M25.562 [facility] [id number] [place] [address] 22600- 0873 May, Arthritis M19.90 [facility] [id number] [place] [address] 50504- 2613 May, [facility] [address] [address]- 9488 May, Anxiety F41.9 ; Unspecified episodic mood disorder 296.90 ; Combinations of drug dependence excluding opioid type drug, unspecified abuse 304.80 and Other disorder of impulse control 312.39 [facility] [address] [place] [address] 25718- 5211 May, Left knee pain M25.562 [facility] [id number] [place] [address] 84246- 4925 May, Left knee pain M25.562 ; Combinations of drug dependence excluding opioid type drug, unspecified abuse 304.80 ; Other disorder of impulse control 312.39 ; Fibromyalgia M79.7 ; Hypertension I10 ; Unspecified episodic mood disorder 296.90 and Left hip pain M25.552 [facility] [id number] [place] [address] 24700- 6934 May, Unspecified episodic mood disorder 296.90 ; Other disorder of impulse control 312.39 ; Combinations of drug dependence excluding opioid type drug, unspecified abuse 304.80 and Anxiety F41.9 [facility] [address] [place] [address] 97095- 5072 May, Left knee pain M25.562 ; Combinations of drug dependence excluding opioid type drug, unspecified abuse 304.80 ; Other disorder of impulse control 312.39 ; Fibromyalgia M79.7 ; Hypertension I10 ; Unspecified episodic mood disorder 296.90 and Left hip pain M25.552 [facility] [address] [place] [address] 88851- 8677 May, Anxiety F41.9 ; Unspecified episodic mood disorder 296.90 ; Other disorder of impulse control 312.39 and Combinations of drug dependence excluding opioid type drug, unspecified abuse 304.80 [facility] [address] [address]- 4946 Apr, 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 and 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, implants and grafts, initial encounter T84.82XA [facility] [address] [address]- 4673 28 Apr, 2015 Anxiety F41.9 ; Unspecified episodic mood disorder 296.90 ; Combinations of drug dependence excluding opioid type drug, unspecified abuse 304.80 and Other disorder of impulse control 312.39 [facility] [id number] [place] [address] 69148- 1918 25 Apr, 2015 Arthritis M19.90 [facility] [id number] [place] [address] 91213- 8423 21 Apr, 2015 Anxiety F41.9 ; Unspecified episodic mood disorder 296.90 ; Combinations of drug dependence excluding opioid type drug, unspecified abuse 304.80 and Other disorder of impulse control 312.39 [facility] [id number] [place] [address] 87761- 4973 17 Apr, 2015 Arthritis M19.90 [facility] [id number] [place] [address] 00258- 4180 15 Apr, 2015 [facility] [id number] [place] [address] 15982- 1941 15 Apr, 2015 [facility] [id number] [place] [address] 67719- 0700 14 Apr, 2015 Unspecified episodic mood disorder 296.90 ; Combinations of drug dependence excluding opioid type drug, unspecified abuse 304.80 ; Other disorder of impulse control 312.[address] [facility] [address] [place] [address] 25536 -9732 11 Apr, 2015 Left knee pain M25.562 [facility] [id number] [place] [address] 45073- 9134 11 Apr, 2015 [facility] [id number] [place] [address] 32419- 6819 29 Mar, 2015 Unspecified episodic mood disorder 296.90 ; Anxiety F41.9 ; Other disorder of impulse control 312.39 and Combinations of drug dependence excluding opioid type drug, unspecified abuse 304.80 [facility] [address] [place] [address] 18071- 7766 Mar, Hyperpigmentation L81.9 [facility] [id number] [place] [address]- 7440 Mar, Arthritis M19.90 and Anxiety F41.[address] 311081- 3988 Mar, Unspecified episodic mood disorder F39 ; Combined drug dependence excluding opioids, 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 ; Other disorder of impulse control F63.89 and Anxiety F41.[address] 51966- 7023 12 Mar, 2015 Well woman exam Z01.419 ; Other fatigue R53.83 ; Hot flashes N95.1 ; Depression, unspecified depression type F32.9 and Body mass index (BMI) of 23.0-23.9 in adult Z68.23 [facility] [id number] [place] [address] 85248- 8197 11 Mar, 2015 Unspecified episodic mood disorder 296.90 ; Other disorder of impulse control 312.39 and Anxiety F41.9 [facility] [id number] [place] [address] 38243- 9621 11 Mar, 2015 Well woman exam Z01.419 [...] of breast Z12.39 and Limited mobility Z74.09 [facility] [address] 29108- 3325 Mar, [facility] [address] 62935- 5977 Mar, [facility] [address] 83137- 8873 Mar, [facility] [address] 33697- 1021 Mar, Other specified complication of internal orthopedic prosthetic devices, implants and grafts, initial encounter T84.89XA ; Fibromyalgia M79.7 ; Hypertension I10 ; Anemia D64.9 ; Insomnia G47.00 ; Anxiety F41.9 ; Arthritis M19.90 and Migraine G43.909 [facility] [address] 42307- 5445 Mar, [facility] [address] 40656- 2755 Feb, [facility] [address] 84927- 1005 Feb, Arthritis M19.90 and Anxiety F41.9 [facility] [address] 23073- 4422 Feb, [facility] [address] 80631- 1130 Feb, [facility] [address] [address] Feb, [place] [address] [address] Feb, [facility] [address] [address] Feb, Anxiety F41.9 [place] [address] [address] Feb, [facility] [id number] [address] Feb, [facility] [address] [place] [id number] [place] [address] Feb, 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 and Fibromyalgia M79.7 [facility] [address] [place] [id number] [place] [address]- [address] Feb, [facility] [address] [place] [place] [id number] [place] [address] Jan, [facility] [address] [id number] [place] [address] 39905- 2610 Jan, [facility] [id number] [place] [address] 00717- 7817 Jan, [facility] [id number] [place] [address] 25346- 5898 Jan, [facility] [id number] [address] 4515 Jan, [facility] [id number] [place] [address] 31797- 3731 Jan, [facility] [id number] [address] 0151 Jan, [facility] [id number] [address] 7024 Jan, [facility] [id number] [address] 9195 Dec, [facility] [id number] [place] [address] 94067- 2168 Dec, Left knee pain M25.562 [facility] [id number] [address]- 5296 Dec, Left knee pain M25.562 [facility] [id number] [place] [address] 59450- 8897 16 Dec, 2014 Fibromyalgia M79.7 ; Hypertension I10 [address]19[address] [facility] [id number] [place] [address] 60837- 6021 Dec, [facility] [id number] [place] [address] 27928- 3693 Dec, [facility] [id number] [place] [address] 61529- 2843 Dec, [facility] [id number] [place] [address] 92842- 3849 Dec, [facility] [id number] [place] [address] 70798- 5668 Nov, [facility] [id number] [place] [address] 04261- 5634 Nov, [facility] [id number] [place] [address] 43143- 8854 Nov, [facility] [id number] [place] [address] 54153- 7222 Nov, Hypertension I10 [facility] [id number] [place] [address] 95116- 3738 23 Oct, 2014 [facility] [id number] [address]- 7619 17 Sep, 2014 [facility] [id number] [place] [address] 15817- 5926 04 Sep, 2014 [facility] [id number] [place] [address] 70078- 1421 04 Sep, 2014 [facility] [id number] [place] [address] 28615- 6595 03 Oct, 2014 [facility] [address] [address]- 3556 Sep, [facility] [id number] [place] [address] 92776- 7056 Sep, [facility] [address] [id number] [place] [address]- 4146 Sep, Hip pain associated with recalled total hip arthroplasty hardware 996.77 [facility] [address] [id number] [place] [address] 2546 Sep, [facility] [address] [id number] [place] [address]- 4386 Sep, [facility] [address] [id number] [place] [address]- 5707 Sep, [facility] [address] [id number] [place] [address]- 2547 Aug, [facility] [address] [id number] [place] [address]- 7609 Jul, [facility] [address] [id number] [place] [address]- 0070 June, [facility] [address] [id number] [place] [address]- 3052 June, [facility] [address] [id number] [place] [address]- 1438 June, [facility] [address] [facility] [id number] [address]- 4769 June, [facility] [address] [id number] [place] [address]- 4266 June, [facility] [address] [id number] [address]- 3996 June, [facility] [address] [id number] [place] [address]- 3111 May, [facility] [address] [id number] [place] [address]- 4666 May, [facility] [address] [id number] [address]- 5439 May, [facility] [place] [facility] [address] [id number] [place] [address]- 5689 30 Apr, 2014 [facility] [place] [facility] [address] [id number] [place] [address]- 4202 30 Apr, 2014 [facility] [place] [facility] [address] [id number] [place] [address]- 5240 Apr, [facility] [place] [facility] [address] [id number] [place] [address]- 4437 Apr, [facility] [place] [facility] [address] [id number] [place] [address]- 0203 Apr, [facility] [place] [facility] [address] [id number] [place] [address]- 3506 Apr, [facility] [place] [facility] [address] [id number] [place] [address]- 4850 Apr, [facility] [place] [facility] [address] [id number] [place] [address]- 7689 Apr, [facility] [place] [facility] [address] [id number] [place] [address]- 2958 Apr, [facility] [place] [facility] [address] [id number] [place] [address]- 8336 Apr, [facility] [place] [facility] [address] [id number] [place] [address]- 2413 Apr, [facility] [place] [facility] [address] [id number] [place] [address]- 6234 Mar, [facility] [place] [facility] [address] [id number] [place] [address]- 6904 Mar, [facility] [place] [facility] [address] [id number] [place] [address]- 1607 Mar, [facility] [place] [facility] [address] [id number] [place] [address]- 5989 Mar, [facility] [place] [facility] [address] [id number] [place] [address]- 6460 10 Mar, 2014 [facility] [address] [id number] [place] [address]- 8615 10 Mar, 2014 [facility] [address] [id number] [place] [address]- 0765 15 Feb, 2014 [facility] [address] [id number] [place] [address]- 8631 Feb, [facility] [address] [id number] [place] [address]- 2854 Feb, [facility] [address] [id number] [place] [address]- 5119 Feb, [facility] [address] [id number] [place] [address]- 6124 Jan, [facility] [address] [id number] [place] [address]- 3787 Jan, [facility] [address] [id number] [place] [address]- 7824 Jan, [facility] [address] [id number] [place] [address]- 1385 Jan, [facility] [address] [id number] [place] [address]- 2216 Dec, [facility] [place] [facility] [address] [id number] [place] [address]- 1290 Dec, [facility] [place] [facility] [address] [id number] [place] [address]- 6530 Dec, [facility] [place] [facility] [address] [id number] [place] [address]- 4728 Dec, [facility] [place] [facility] [address] [id number] [place] [address]- 6315 Dec, [facility] [place] [facility] [address] [id number] [place] [address]- 8054 Dec, [facility] [place] [facility] [address] [id number] [place] [address]- 1884 Dec, [facility] [place] [facility] [address] [id number] [place] [address]- 0979 Dec, [facility] [place] [facility] [address] [id number] [place] [address]- 1611 Dec, [facility] [place] [facility] [address] [id number] [place] [address]- 0974 Dec, [facility] [place] [facility] [address] [id number] [place] [address]- 2807 Dec, [facility] [place] [facility] [address] [id number] [place] [address]- 4195 31 Nov, 2013 [facility] [place] [facility] [address] [id number] [place] [address]- 3004 28 Nov, 2013 [facility] [place] [facility] [address] [id number] [place] [address]- 3905 28 Nov, 2013 [facility] [place] [facility] [address] [id number] [place] [address]- 2953 17 Nov, 2013 [facility] [place] [facility] [address] [id number] [place] [address]- 9728 17 Nov, 2013 [facility] [place] [facility] [address] [id number] [place] [address]- 9856 15 Nov, 2013 [facility] [place] [facility] [address] [id number] [address]- 5928 15 Nov, 2013 [facility] [place] [facility] [address] [id number] [place] [address]- 8859 15 Nov, 2013 [facility] [place] [facility] [address] [id number] [place] [address]- 9043 15 Nov, 2013 [facility] [place] [facility] [address] [id number] [address]- 6483 14 Nov, 2013 [facility] [place] [facility] [address] [id number] [address]- 6539 14 Nov, 2013 [facility] [place] [facility] [address] [id number] [place] [address]- 0049 14 Nov, 2013 [facility] [place] [facility] [address] [id number] [place] [address]- 6817 14 Nov, 2013 [facility] [place] [facility] [address] [id number] [place] [address]- 6143 13 Nov, 2013 [facility] [place] [facility] [address] [id number] [place] [address]- 4885 13 Nov, 2013 [facility] [place] [facility] [address] [id number] [place] [address]- 5914 11 Nov, 2013 [facility] [place] [facility] [address] [id number] [place] [address]- 8612 11 Nov, 2013 [facility] [place] [facility] [address] [id number] [place] [address]- 5596 07 Nov, 2013 [facility] [place] [facility] [address] [id number] [place] [address]- 8473 07 Nov, 2013 [facility] [place] [facility] [address] [id number] [place] [address]- 2812 07 Nov, 2013 [facility] [place] [facility] [address] [id number] [place] [address]- 7757 07 Nov, 2013 [facility] [place] [facility] [address] [id number] [address]- 6852 30 Sep, 2013 [facility] [place] [facility] [address] [id number] [place] [address]- 3028 30 Sep, 2013 [facility] [place] [facility] [address] [id number] [place] [address]- 0340 26 Sep, 2013 [facility] [place] [facility] [address] [id number] [place] [address]- 1313 26 Sep, 2013 [facility] [place] [facility] [address] [id number] [place] [address]- 6901 22 Oct, 2013 [facility] [place] [facility] [address] [id number] [place] [address]- 8656 22 Oct, 2013 [facility] [place] [facility] [address] [id number] [place] [address]- 5429 18 Oct, 2013 [facility] [place] [facility] [address] [id number] [place] [address]- 2541 18 Oct, 2013 [facility] [place] [facility] [address] [id number] [place] [address]- 2939 Oct, 2013 [facility] [place] [facility] [address] [id number] [place] [address]- 6840 18 Oct, 2013 [facility] [place] [facility] [address] [id number] [place] [address]- 6023 Oct, 2013 [facility] [place] [facility] [address] [id number] [place] [address]- 7138 Oct, 2013 [facility] [place] [facility] [address] [id number] [place] [address]- 1598 Oct, 2013 [facility] [place] [facility] [address] [id number] [place] [address]- 1912 Oct, [facility] [place] [facility] [address] [id number] [place] [address]- 0308 Sep, [facility] [place] [facility] [address] [id number] [place] [address]- 0261 Sep, [facility] [place] [facility] [address] [id number] [place] [address]- 5337 Sep, [facility] [place] [facility] [address] [id number] [place] [address]- 8369 Sep, [facility] [place] [facility] [address] [id number] [place] [address]- 8653 Sep, [facility] [place] [facility] [address] [id number] [place] [address]- 7883 Sep, [facility] [place] [facility] [address] [id number] [place] [address]- 1541 Sep, [facility] [place] [facility] [address] [id number] [place] [address]- 1328 Sep, [facility] [place] [facility] [address] [id number] [place] [address]- 3358 Sep, [facility] [place] [facility] [address] [id number] [place] [address]- 7958 Sep, [facility] [place] [facility] [address] [id number] [place] [address]- 6552 Sep, [facility] [place] [facility] [address] [id number] [place] [address]- 6018 Sep, [facility] [place] [facility] [address] [id number] [place] [address]- 2131 Sep, [facility] [place] [facility] [address] [id number] [place] [address]- 7663 Sep, [facility] [place] [facility] [address] [id number] [place] [address]- 4385 Sep, [facility] [place] [facility] [address] [id number] [place] [address]- 3863 Sep, [facility] [place] [facility] [address] [id number] [place] [address]- 4293 Sep, [facility] [place] [facility] [address] [id number] [place] [address]- 7599 Sep, [facility] [place] [facility] [address] [id number] [place] [address]- 1954 Aug, [facility] [place] [facility] [address] [id number] [place] [address]- 1854 Aug, [facility] [place] [facility] [address] [id number] [place] [address]- 9864 Aug, [facility] [place] [facility] [address] [id number] [place] [address]- 9347 Aug, [facility] [place] [facility] [address] [id number] [place] [address]- 8322 Aug, [facility] [place] [facility] [address] [id number] [place] [address]- 5018 Aug, [facility] [place] [facility] [address] [id number] [place] [address]- 1316 Jul, [facility] [place] [facility] [address] [id number] [place] [address]- 1774 Jul, [facility] [place] [facility] [address] [id number] [place] [address]- 9265 Jul, [facility] [place] [facility] [address] [id number] [place] [address]- 2998 Jul, [facility] [place] [facility] [address] [id number] [place] [address]- 0829 June, [facility] [place] [facility] [address] [id number] [place] [address]- 1851 June, [facility] [place] [facility] [address] [id number] [place] [address]- 7342 June, [facility] [place] [facility] [address] [id number] [place] [address]- 5536 June, [facility] [place] [facility] [address] [id number] [place] [address]- 3308 June, [facility] [place] [facility] [address] [id number] [place] [address]- 5141 June, [facility] [place] [facility] [address] [id number] [place] [address]- 3984 June, [facility] [place] [facility] [address] [id number] [place] [address]- 0103 May, [facility] [place] [facility] [address] [id number] [place] [address]- 3232 May, [facility] [place] [facility] [address] [id number] [place] [address]- 6644 May, [facility] [place] [facility] [address] [id number] [place] [address]- 3443 28 May, 2013 [facility] [place] [facility] [address] [id number] [place] [address]- 5507 May, [facility] [place] [facility] [address] [id number] [place] [address]- 7236 May, [facility] [place] [facility] [address] [id number] [place] [address]- 9151 31 Apr, 2013 [facility] [place] [facility] [address] [id number] [place] [address]- 9750 31 Apr, 2013 [facility] [place] [facility] [address] [id number] [place] [address]- 0194 Apr, [facility] [place] [facility] [address] [id number] [place] [address]- 8159 Apr, [facility] [place] [facility] [address] [id number] [place] [address]- 5751 14 Apr, 2013 [facility] [place] [facility] [address] [id number] [place] [address]- 3319 14 Apr, 2013 [facility] [place] [facility] [address] [id number] [place] [address]- 3806 12 Apr, 2013 [facility] [place] [facility] [address] [id number] [place] [address]- 9172 12 Apr, 2013 [facility] [place] [facility] [address] [id number] [place] [address]- 1573 10 Apr, 2013 [facility] [place] [facility] [address] [id number] [place] [address]- 5081 10 Apr, 2013 [facility] [place] [facility] [address] [id number] [place] [address]- 6494 04 Apr, 2013 [facility] [place] [facility] [address] [id number] [place] [address]- 6018 04 Apr, 2013 [facility] [place] [facility] [address] [id number] [place] [address]- 9129 Apr, [facility] [place] [facility] [address] [id number] [place] [address]- 9825 Apr, [facility] [place] [facility] [address] [id number] [place] [address]- 0280 Mar, [facility] [place] [facility] [address] [id number] [place] [address]- 1827 Mar, [facility] [place] [facility] [address] [id number] [place] [address]- 9538 Mar, [facility] [place] [facility] [address] [id number] [place] [address]- 8323 Feb, [facility] [place] [facility] [address] [id number] [place] [address]- 1316 Feb, [facility] [place] [facility] [address] [id number] [place] [address]- 8421 Feb, [facility] [place] [facility] [address] [id number] [place] [address]- 6991 Feb, [facility] [place] [facility] [address] [id number] [place] [address]- 8586 Feb, [facility] [place] [facility] [address] [id number] [place] [address]- 1160 Feb, [facility] [place] [facility] [address] [id number] [place] [address]- 3182 Feb, [facility] [place] [facility] [address] [id number] [place] [address]- 5541 Feb, [facility] [place] [facility] [address] [id number] [place] [address]- 6544 Feb, [facility] [place] [facility] [address] [id number] [place] [address]- 8534 Feb, [facility] [place] [facility] [address] [id number] [place] [address]- 1791 Jan, [facility] [place] [facility] [address] [id number] [place] [address]- 7962 30 Jan, 2013 [facility] [address] [id number] [place] [address]- 2836 Jan, [facility] [address] [id number] [place] [address] Jan, [facility] [address] [id number] [place] [address] Jan, [facility] [address] [id number] [place] [address] Jan, [facility] [address] [id number] [place] [address] Jan, [facility] [address] [id number] [place] [address] Jan, [facility] [address] [id number] [place] [address] Jan, [facility] [address] [id number] [place] [address] Jan, [facility] [address] [id number] [place] [address] Jan, [facility] [address] [id number] [place] [address] 17 Jan, 2013 [facility] [address] [id number] [place] [address] 16 Jan, 2013 [facility] [address] [id number] [place] [address] 11 Jan, 2013 [facility] [address] [id number] [place] [address] Jan, [facility] [address] [id number] [place] [address] Jan, [facility] [address] [id number] [place] [address] Jan, [facility] [place] [facility] [address] [id number] [place] [address] Jan, [facility] [place] [facility] [address] [id number] [place] [address] Jan, [facility] [place] [facility] [address] [id number] [place] [address] Jan, [facility] [place] [facility] [address] [id number] [place] [address] Jan, [facility] [place] [facility] [address] [id number] [place] [address] Dec, [facility] [place] [facility] [address] [id number] [place] [address] Dec, [facility] [place] [facility] [address] [id number] [place] [address] Dec, [facility] [place] [facility] [address] [id number] [place] [address] Dec, [facility] [place] [facility] [address] [id number] [place] [address] Dec, [facility] [place] [facility] [address] [id number] [address] Dec, [facility] [place] [facility] [address] [id number] [address] Dec, [facility] [place] [facility] [address] [id number] [place] [address] Dec, [facility] [place] [facility] [address] [id number] [place] [address] Dec, [facility] [place] [facility] [address] [id number] [place] [address] Dec, [facility] [place] [facility] [address] [id number] [place] [address] Nov, [facility] [place] [facility] [address] [id number] [place] [address] 31 Nov, 2012 [facility] [place] [facility] [address] [id number] [place] [address] 18 Nov, 2012 [facility] [place] [facility] [address] [id number] [place] [address] 18 Nov, 2012 [facility] [place] [facility] [address] [id number] [place] [address] 11 Nov, 2012 [facility] [place] [facility] [address] [id number] [place] [address] 11 Nov, 2012 [facility] [place] [facility] [address] [id number] [place] [address] 11 Nov, 2012 [facility] [place] [facility] [address] [id number] [place] [address] 11 Nov, 2012 [facility] [place] [facility] [address] [id number] [place] [address] 10 Nov, 2012 [facility] [place] [facility] [address] [id number] [place] [address] 03 Nov, 2012 [facility] [place] [facility] [address] [id number] [place] [address] 26 Oct, 2012 [facility] [place] [facility] [address] [id number] [place] [address] 26 Oct, 2012 [facility] [place] [facility] [address] [id number] [place] [address] 68[address] 26 Oct, 2012 [facility] [place] [facility] [address] [id number] [address] 25 Oct, 2012 [facility] [place] [facility] [address] [id number] [place] [address] 06 Oct, 2012 [facility] [place] [facility] [address] [id number] [address] 08 Sep, 2012 [facility] [place] [facility] [address] [id number] [address] Sep, [facility] [place] [facility] [address] [id number] [place] [address] Aug, [facility] [address] [id number] [place] [address] Aug, [facility] [place] [facility] [address] [id number] [place] [address] Aug, [facility] [place] [facility] [address] [id number] [place] [address] Aug, [facility] [address] [id number] [place] [address] Aug, [facility] [place] [facility] [address] [id number] [place] [address]- 1697 Aug, [facility] [address] [id number] [place] [address] Aug, [facility] [address] [id number] [place] [address] Jul, [facility] [address] [id number] [place] [address] Jul, [facility] [address] [id number] [place] [address] June, [facility] [address] [id number] [place] [address] June, [facility] [place] [facility] [address] [id number] [place] [address] June, [facility] [place] [facility] [address] [id number] [place] [address] June, [facility] [place] [facility] [address] [id number] [place] [address] June, [facility] [place] [facility] [address] [id number] [place] [address] June, [facility] [place] [facility] [address] [id number] [place] [address] June, [facility] [address] [id number] [place] [address] June, [facility] [address] [id number] [place] [address] June, [facility] [address] [id number] [place] [address] June, [facility] [place] [facility] [address] [id number] [place] [address] June, [facility] [address] [id number] [place] [address] 59[address] May, [facility] [place] [facility] [address] [id number] [place] [address] 1627 May, [facility] [address] [id number] [place] [address] 2215 May, [facility] [place] [facility] [address] [id number] [place] [address] 2411 May, [facility] [place] [facility] [address] [id number] [place] [address] Apr, [facility] [place] [facility] [address] [id number] [place] [address] 2679 Apr, [facility] [place] [facility] [address] [id number] [address] Apr, [facility] [place] [facility] [address] [id number] [address] Mar, [facility] [place] [facility] [address] [id number] [place] [address] 3053 Mar, [facility] [place] [facility] [address] [id number] [place] [address]- 5875 Feb, [facility] [place] [facility] [address] [id number] [place] [address] 4777 Feb, [facility] [place] [facility] [address] [id number] [place] [address] 5917 21 Feb, 2012 [facility] [address] [id number] [place] [address] 1595 21 Feb, 2012 [facility] [address] [id number] [place] [address] 1116 16 Feb, 2012 [facility] [address] [id number] [place] [address] 7324 14 Feb, 2012 [facility] [address] [id number] [place] [address] 08 Feb, 2012 [facility] [address] [id number] [place] [address] 31 Jan, 2012 [facility] [address] [id number] [place] [address]- 1486 31 Jan, 2012 [facility] [address] [id number] [place] [address]- 6061 28 Jan, 2012 [facility] [address] [id number] [place] [address] 6960 17 Jan, 2012 [facility] [address] [id number] [place] [address] 7200 17 Jan, 2012 [facility] [address] [id number] [place] [address] 90[address] Jan, [facility] [address] [id number] [place] [address] 2545 11 Jan, 2012 [facility] [address] [id number] [place] [address]- 2546 10 Jan, 2012 [facility] [address] [id number] [place] [address] 8816 10 Jan, 2012 [facility] [address] [id number] [place] [address]- 8596 03 Jan, 2012 [facility] [address] [id number] [place] [address] 8429 Jan, [facility] [place] [facility] [address] [id number] [place] [address] 2719 Dec, [facility] [place] [facility] [address] [id number] [place] [address]- 0976 Dec, [facility] [place] [facility] [address] [id number] [place] [address]- 7615 Dec, [facility] [place] [facility] [address] [id number] [place] [address]- 5218 Dec, [facility] [place] [facility] [address] [id number] [place] [address]- 9159 Nov, [facility] [place] [facility] [address] [id number] [place] [address]- 3275 Nov, [facility] [place] [facility] [address] [facility] [id number] [place] [address]- 5949 Nov, [facility] [place] [facility] [address] [id number] [address]36 27 Oct, 2011 [facility] [place] [facility] [address] [id number] [place] [address]- 8942 24 Oct, 2011 [facility] [place] [facility] [address] [facility] [id number] [place] [address]- 1443 21 Oct, 2011 [facility] [place] [facility] [address] [facility] [id number] [place] [address] 3298 10 Oct, 2011 [facility] [place] [facility] [address] [id number] [place] [address] 6[address] 07 Oct, 2011 [facility] [place] [facility] [address] [id number] [place] [address]- 5666 04 Oct, 2011 [facility] [place] [facility] [address] [id number] [address]- 6476 04 Oct, 2011 [facility] [place] [facility] [address] [facility] [id number] [place] [address]- 3272 29 Sep, 2011 [facility] [place] [facility] [address] [id number] [place] [address] 45[address] Sep, [facility] [place] [facility] [address] [id number] [place] [address]- 9875 Sep, [facility] [place] [facility] [address] [id number] [place] [address]- 6776 Sep, [facility] [place] [facility] [address] [id number] [place] [address]- 7726 Sep, [facility] [place] [facility] [address] [id number] [place] [address]- 4292 30 Aug, 2011 [facility] [place] [facility] [address] [id number] [place] [address]- 5973 Aug, [facility] [place] [facility] [address] [id number] [place] [address]- 3587 Aug, [facility] [place] [facility] [address] [id number] [place] [address]- 2099 16 Aug, 2011 [facility] [place] [facility] [address] [id number] [place] [address]- 4677 Aug, [facility] [place] [facility] [address] [id number] [place] [address]- 0825 Aug, [facility] [place] [facility] [address] [id number] [place] [address]- 8397 Aug, [facility] [place] [facility] [address] [id number] [place] [address]- 7853 Jul, [facility] [place] [facility] [address] [id number] [place] [address]- 8437 Jul, [facility] [place] [facility] [address] [id number] [place] [address]- 7263 Jul, [facility] [place] [facility] [address] [id number] [place] [address]- 0900 Jul, [facility] [place] [facility] [address] [id number] [place] [address]- 5228 Jul, [facility] [place] [facility] [address] [id number] [place] [address]- 3034 11 Jul, 2011 [facility] [address] [id number] [place] [address]- 7454 07 Jul, 2011 [facility] [place] [facility] [address] [id number] [place] [address]- 3086 Jul, [facility] [place] [facility] [address] [id number] [place] [address]- 8848 Jul, [facility] [place] [facility] [address] [id number] [place] [address]- 3928 June, [facility] [place] [facility] [address] [id number] [place] [address] 0923 June, [facility] [place] [facility] [address] [id number] [place] [address] June, [facility] [place] [facility] [address] [id number] [place] [address]- 7125 June, [facility] [address] [id number] [place] [address]- 9254 June, [facility] [place] [facility] [address] [id number] [place] [address]- [address] June, [facility] [place] [facility] [address] [id number] [place] [address] 9914 June, [facility] [place] [facility] [address] [id number] [place] [address]- 4194 June, [facility] [place] [facility] [address] [id number] [place] [address]- 9397 May, [facility] [place] [facility] [address] [id number] [place] [address]- 4044 May, [facility] [place] [facility] [address] [id number] [place] [address]- 7794 May, [facility] [place] [facility] [address] [id number] [place] [address]- 9515 May, [facility] [place] [facility] [address] [id number] [place] [address]- 7894 16 May, 2011 [facility] [place] [facility] [address] [id number] [place] [address]- 2861 16 May, 2011 [facility] [place] [facility] [address] [id number] [place] [address]- 3121 May, [facility] [place] [facility] [address] [id number] [place] [address]- 6045 27 Apr, 2011 [facility] [place] [facility] [address] [id number] [place] [address]- 0968 Apr, [facility] [place] [facility] [address] [id number] [place] [address]- 8838 Apr, [facility] [place] [facility] [address] [id number] [place] [address]- 8017 Apr, [facility] [place] [facility] [address] [id number] [place] [address]- 2975 Apr, [facility] [place] [facility] [address] [id number] [place] [address]- 4929 Apr, [facility] [place] [facility] [address] [id number] [place] [address]- 5040 Apr, [facility] [place] [facility] [address] [id number] [place] [address]- 1219 Mar, [facility] [place] [facility] [address] [id number] [place] [address]- 5217 Mar, [facility] [place] [facility] [address] [id number] [place] [address]- 0154 14 Mar, 2011 [facility] [place] [facility] [address] [id number] [place] [address]- 8532 13 Mar, 2011 [facility] [place] [facility] [address] [id number] [place] [address]- 5732 09 Mar, 2011 [facility] [place] [facility] [address] [id number] [place] [address]- 2546 08 Mar, 2011 [facility] [address] [id number] [place] [address]- 9606 Mar, [facility] [address] [id number] [place] [address]- 2546 Feb, [facility] [address] [id number] [place] [address]- 6186 Feb, [facility] [address] [id number] [place] [address]- 4526 Feb, [facility] [address] [id number] [place] [address]- 7326 Feb, [facility] [address] [id number] [place] [address]- 5006 Feb, [facility] [address] [id number] [place] [address]- 2538 Feb, [facility] [address] [id number] [place] [address]- 8155 Feb, [facility] [address] [id number] [place] [address]- 6186 Feb, [facility] [address] [id number] [place] [address]- 6196 Feb, [facility] [address] [id number] [place] [address]- 2376 Feb, [facility] [address] [id number] [place] [address]- 6594 Jan, [facility] [address] [id number] [place] [address]- 7106 Jan, [facility] [address] [id number] [place] [address]- 2546 Jan, [facility] [address] [id number] [place] [address]- 1935 Jan, [facility] [place] [facility] [address] [id number] [place] [address]- 4479 Jan, [facility] [place] [facility] [address] [id number] [place] [address]- 1707 Jan, [facility] [place] [facility] [address] [id number] [place] [address]- 4107 15 Jan, 2011 [facility] [place] [facility] [address] [id number] [place] [address]- 0159 Jan, [facility] [place] [facility] [address] [id number] [place] [address]- 7946 Jan, [facility] [place] [facility] [address] [id number] [place] [address]- 5467 Jan, [facility] [place] [facility] [address] [id number] [place] [address]- 0869 Jan, [facility] [place] [facility] [address] [id number] [place] [address]- 3143 Dec, [facility] [place] [facility] [address] [id number] [place] [address]- 4217 17 Dec, 2010 [facility] [place] [facility] [address] [id number] [place] [address]- 9235 17 Dec, 2010 [facility] [place] [facility] [address] [id number] [place] [address]- 4616 16 Dec, 2010 [facility] [place] [facility] [address] [id number] [address]- 0363 14 Dec, 2010 [facility] [place] [facility] [address] [id number] [place] [address]- 9494 09 Dec, 2010 [facility] [place] [facility] [address] [id number] [place] [address]- 0390 08 Dec, 2010 [facility] [place] [facility] [address] [id number] [place] [address]- 9669 07 Dec, 2010 [facility] [place] [facility] [address] [id number] [place] [address]- 9216 02 Dec, 2010 [facility] [place] [facility] [address] [id number] [place] [address]- 9252 Nov, [facility] [place] [facility] [address] [id number] [place] [address]- 3410 31 Nov, 2010 [facility] [place] [facility] [address] [id number] [place] [address]- 1073 Nov, [facility] [place] [facility] [address] [id number] [place] [address]- 0046 24 Nov, 2010 [facility] [place] [facility] [address] [id number] [place] [address]48 24 Nov, 2010 [facility] [place] [facility] [address] [id number] [place] [address]- 3020 Nov, [facility] [place] [facility] [address] [id number] [place] [address]- 8384 Aug, [facility] [place] [facility] [address] [id number] [place] [address]- 2063 14 Feb, 2010 [facility] [place] [facility] [address] [id number] [place] [address]- 4755 14 Jan, 2010 [facility] [place] [facility] [address] [facility] [id number] [place] [address]- 2876 06 Jan, 2010 [facility] [place] [facility] [address] [id number] [place] [address]- 3304 Jan, [facility] [place] [facility] [address] [id number] [place] [address]- 1289 Jan, [facility] [place] [facility] [address] [id number] [place] [address]- 1550 Jan, [facility] [place] [facility] [address] [id number] [place] [address]- 3155 24 Dec, 2009 [facility] [place] [facility] [address] [id number] [place] [address]- 6661 18 Dec, 2009 [facility] [place] [facility] [address] [facility] [id number] [place] [address]- 9606 Dec, [facility] [address] [id number] [address]- 0023 Dec, [facility] [address] [id number] [address]- 5168 Nov, [facility] [address] [id number] [address]- 2074 Nov, [facility] [address] [facility] [id number] [place] [address]- 3031 Nov, IMMUNIZATIONS No Known Immunizations SOCIAL HISTORY Never Assessed REASON FOR VISIT Hep C treatment PLAN OF CARE VITAL SIGNS MEDICATIONS Unknown [...]
--- OUTSIDE RECORDS SUMMARY | 2018-01-13 22:20 | XMS REPORT ---
Author Author WYATT SOTO [facility] eClinical[employer] Address Unknown Phone Unavailable Care Team Providers Care Bilingual Receptionist Name Role Phone WYATT SOTO CP Unavailable [...] Date End Date Status Dosage Clonidine HCl [facility] [address]-87 0.1 MG Orally Once a day Jan 16, 2015 1 tablet Results No Known Results Summary Purpose eClinicalWorks Submission
--- OUTSIDE RECORDS SUMMARY | 2018-01-13 22:21 | XMS REPORT ---
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 Active 799232312 Problem Unspecified episodic mood disorder F39 Active 50229620 Problem 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
--- OUTSIDE RECORDS SUMMARY | 2018-01-13 22:21 | XMS REPORT ---
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
--- OUTSIDE RECORDS SUMMARY | 2018-01-13 22:22 | XMS REPORT ---
Author Author WYATT SOTO [facility] eClinicalWorks Address Unknown Phone Unavailable Care Team Providers Care Credit Negotiator Name Role Phone WYATT SOTO CP Unavailable [...]
--- OUTSIDE RECORDS SUMMARY | 2018-01-13 22:22 | XMS REPORT ---
Author Author WYATT SOTO [facility] eClinicalWorks Address Unknown Phone Unavailable Care Team Providers Care Type Disk Quality Control Supervisor Name Role Phone WYATT SOTO CP [...] Start Date End Date Status Dosage Gabapentin [facility] [address]-64 300 MG Orally Three times a day Sep 12, 2014 1 capsule Results No Known Results Summary Purpose eClinicalWorks Submission
--- OUTSIDE RECORDS SUMMARY | 2018-01-13 22:22 | XMS REPORT ---
Author Author VONNIE CALABRESE Organization [facility] Address [address] 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 Active 76064943 Problem Unspecified episodic mood disorder F39 Active 03147579 Problem Hypertension I10 Active 20240517 Problem Venous insufficiency (chronic) (peripheral) I87.2 Active 121607522 Problem Gastroesophageal reflux disease, esophagitis presence not specified K21.9 Active 444004911 Problem Other chronic pain G89.29 Active 64595369 Problem Chronic hepatitis C without hepatic coma B18.2 Active 669597054 Problem Other psychoactive substance dependence, uncomplicated F19.20 Active 2483042 Problem 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, 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 105253601 ALLERGIES No Information ENCOUNTERS Encounter Location Date Diagnosis [facility] [id number] [place] [address] 88666- 9825 May, [facility] [id number] [place] [address] 90144- 6465 May, Arthritis M19.90 [facility] [id number] [place] [address] 67727 -1201 May, Dysuria R30.0 ; Abscess L02.91 and Acute cystitis without hematuria N30.00 [facility] [id number] [place] [address] 38073- 1433 May, Other disorder of impulse control 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 ; Unspecified episodic mood disorder F39 ; Combined drug dependence excluding opioids, 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 ; Anxiety F41.9 and Other psychoactive substance dependence, uncomplicated F19.20 [facility] [id number] [place] [address] 88200- 2804 May, [facility] [id number] [place] [address] 12703- 8782 May, 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 ; Unspecified episodic mood disorder F39 ; Combined drug dependence excluding opioids, 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 ; Other psychoactive substance dependence, uncomplicated F19.20 and Anxiety F41.9 [facility] [id number] [place] [address] 38045- 3255 May, Other chronic pain G89.29 ; Left hip pain M25.552 ; Hypertension I10 ; 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, 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 and Unspecified episodic mood disorder F39 [facility] [id number] [place] [address] 59655- 5695 Apr, [facility] [id number] [place] [address] 60011 -9271 Apr, Neck pain M54.2 ; Left hip pain M25.552 and Fall, initial encounter W19.XXXA [facility] [id number] [place] [address] 83367- 9695 Apr, Unspecified episodic mood disorder F39 ; Combined drug dependence excluding opioids, 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 ; Anxiety F41.9 ; Other psychoactive substance dependence, uncomplicated F19.20 and Other disorder of impulse control F63.89 [facility] [id number] [place] [address] 34639- 9558 Apr, [facility] [id number] [place] [address] 56978- 0742 Apr, Arthritis M19.90 and Unspecified episodic mood disorder F39 [facility] [id number] [place] [address] 91739- 8740 Apr, Unspecified episodic mood disorder F39 [facility] [id number] [place] [address] 24075- 0886 Apr, [facility] [id number] [place] [address] 03693- 2358 Apr, [facility] [id number] [place] [address] 99586- 7464 Apr, Unspecified episodic mood disorder F39 ; Combined drug dependence excluding opioids, 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 ; Anxiety F41.9 ; Other psychoactive substance dependence, uncomplicated F19.20 and Other disorder of impulse control F63.89 [facility] [id number] [place] [address] 76187- 3088 Mar, Unspecified episodic mood disorder F39 [facility] [id number] [place] [address] 03714- 6413 Mar, Gastroesophageal reflux disease, esophagitis presence not specified K21.9 [facility] [id number] [place] [address] 13743- 4564 Mar, Arthritis M19.90 and Unspecified episodic mood disorder F39 [facility] [id number] [place] [address] 13232- 5270 Feb, [facility] [id number] [place] [address] 61786- 6004 Feb, [facility] [id number] [place] [address] 92150- 6329 Feb, [facility] [id number] [place] [address] 27997- 1159 Feb, Arthritis M19.90 [facility] [id number] [place] [address] 98438- 8661 Feb, Non-pressure chronic ulcer of right calf, 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 ; Unspecified episodic mood disorder F39 and Left hip pain M25.552 [facility] [id number] [place] [address] 39150- 2570 Feb, [facility] [id number] [place] [address] 06944- 5674 Feb, [facility] [id number] [place] [address] 30293- 9639 Jan, Arthritis M19.90 [facility] [address] 43420- 0886 Jan, Left hip pain M25.552 and Non-pressure chronic ulcer of right calf, 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 [facility] [address] 79351- 5055 Jan, Chronic hepatitis C without hepatic coma B18.2 [facility] [facility] [address] 99104- 6252 Jan, Encounter for immunization Z23 ; Venous insufficiency ( chronic) (peripheral) I87.2 ; Non-pressure chronic ulcer of unspecified calf limited to breakdown of skin L97.201 and Gastroesophageal reflux disease, esophagitis presence not specified K21.9 [facility] [address] 14450- 0325 Jan, [facility] [id number] [place] [address] 99264- 7766 Jan, Chronic hepatitis C without hepatic coma B18.2 and Encounter for immunization Z23 [facility] [id number] [place] [address] 93220- 7351 Jan, Arthritis M19.90 [facility] [id number] [place] [address] 68837- 3869 Jan, [facility] [id number] [place] [address] 97205- 4217 Dec, [facility] [id number] [place] [address] 50987- 3993 Dec, Unspecified episodic mood disorder F39 [facility] [id number] [place] [address] 40086- 2807 Dec, Arthritis M19.90 [facility] [id number] [place] [address] 81144- 4369 Dec, Arthritis M19.90 [facility] [id number] [place] [address] 96659- 0085 Nov, [facility] [id number] [place] [address] 92547- 6028 Nov, [facility] [id number] [place] [address] 86474- 1522 Nov, Other psychoactive substance dependence, uncomplicated F19.20 ; 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, 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 and Chronic hepatitis C without hepatic coma B18.2 [facility] [id number] [place] [address] 50429- 1880 Nov, Arthritis M19.90 [facility] [id number] [place] [address] 78026 -0694 Oct, Partial thickness burn of abdomen, initial encounter T21.22XA [facility] [id number] [place] [address] 61960- 1072 Oct, [facility] [id number] [place] [address] 32415- 5314 Sep, Arthritis M19.90 [facility] [id number] [place] [address] 41641- 4469 Sep, [facility] [id number] [place] [address] 31274- 4046 Sep, [facility] [id number] [place] [address] 17157- 9658 Sep, Unspecified episodic mood disorder F39 ; Chronic hepatitis C without hepatic coma B18.2 and Left hip pain M25.552 [facility] [id number] [place] [address] 57262- 0692 Sep, Arthritis M19.90 and Left hip pain M25.552 [facility] [id number] [place] [address] 55519- 1249 Aug, [facility] [id number] [place] [address] 28302- 5182 Aug, [facility] [id number] [place] [address] 84724- 0729 Aug, Chronic hepatitis C without hepatic coma B18.2 [facility] [id number] [place] [address] 56587- 7647 Aug, [facility] [id number] [place] [address] 54562- 2096 Aug, Chronic hepatitis C without hepatic coma B18.2 [facility] [id number] [place] [address] 68816- 0606 Aug, 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, 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 [facility] [id number] [place] [address] 03205- 4608 Aug, [facility] [id number] [place] [address] 41637- 7179 Aug, Chronic hepatitis C without hepatic coma B18.2 and Hypertension I10 [facility] [id number] [place] [address] 30277- 9163 Jul, [facility] [id number] [place] [address] 25379- 2024 June, [facility] [id number] [place] [address] 17724- 1354 Apr, Fibromyalgia M79.7 ; Left hip pain M25.552 and Decubitus ulcer of sacral region, stage 1 L89.151 [facility] [id number] [place] [address] 94175- 5927 Apr, [facility] [address] [address]- 9311 Apr, [facility] [id number] [place] [address] 57504- 2437 Feb, [facility] [address] [address]- 2566 Dec, Anxiety F41.9 ; Combined drug dependence excluding opioids, 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 and Unspecified episodic mood disorder F39 [facility] [id number] [place] [address] 98931- 4893 Dec, [facility] [id number] [place] [address] 22595- 5573 Nov, [facility] [id number] [place] [address] 40905- 2956 Nov, [facility] [id number] [place] [address] 49923- 7447 Nov, Other disorder of impulse control F63.89 and Anxiety F41.9 [facility] [id number] [place] [address] 47981- 9367 Oct, 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 and Anxiety F41.9 [facility] [address] [address]- 2059 Sep, Other disorder of impulse control 312.39 ; Combined drug dependence excluding opioids, 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 ; Anxiety F41.9 and Unspecified episodic mood disorder F39 [facility] [address] [address]- 3416 Sep, Other chronic pain G89.29 [facility] [address] [address]- 8634 Sep, [facility] [address] [address]- 9172 Sep, [facility] [address] [address]- 5823 Aug, [facility] [address] [address]- 6489 Aug, [facility] [id number] [place] [address] 06059- 8102 Aug, [facility] [id number] [place] [address] 56986- 0600 Jul, [facility] [address] [address]- 4516 Jul, [facility] [address] [address]- 5576 Jul, [facility] [address] [address]- 5065 Jul, Arthritis M19.90 ; Chronic hepatitis C without hepatic coma B18.2 and Left hip pain M25.552 [facility] [address] [address]- 7510 13 Jul, 2015 Left knee pain M25.562 [facility] [address] [address]- 6956 Jul, Combined drug dependence excluding opioids, 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 ; Anxiety F41.9 ; Other disorder of impulse control 312.39 and Unspecified episodic mood disorder F39 [facility] [address] [address]- 2703 Jul, Left knee pain M25.562 [facility] [id number] [address]- 6622 08 Jul, 2015 Left knee pain M25.562 and Left hip pain M25.552 [facility] [address] [address]- 8739 Jul, [facility] [id number] [place] [address] 60991- 0243 June, [facility] [id number] [place] [address] 24605- 3207 June, Combinations of drug dependence excluding opioid type drug, unspecified abuse 304.80 ; Other disorder of impulse control 312.39 ; Unspecified episodic mood disorder F39 and Anxiety F41.9 [place] [address] [address]- 2368 June, Other fatigue R53.83 ; Headache R51 and Left knee pain M25.562 [place] [id number] [place] [address] 59175- 8055 June, Unspecified episodic mood disorder F39 ; Combinations of drug dependence excluding opioid type drug, unspecified abuse 304.80 ; Other disorder of impulse control 312.39 and Anxiety F41.9 [facility] [address] [address]- 1255 June, Anxiety F41.9 [facility] [facility] [address] [address]- 9557 June, Pain in left knee M25.562 [facility] [address] [address]- 5775 June, Anxiety F41.9 and Combinations of drug dependence excluding opioid type drug, unspecified abuse 304.80 [facility] [address] [address]- 2967 June, Unspecified episodic mood disorder 296.90 ; Combinations of drug dependence excluding opioid type drug, unspecified abuse 304.80 and Other disorder of impulse control 312.39 [facility] [address] [address]- 5639 June, Anxiety F41.9 and Unspecified episodic mood disorder 296.90 [facility] [address] [place] [address] 21774- 4092 May, Arthritis M19.90 [facility] [id number] [place] [address] 74064- 4698 May, Arthritis M19.90 [facility] [id number] [place] [address] 82563- 3788 May, Anxiety F41.9 ; Combinations of drug dependence excluding opioid type drug, unspecified abuse 304.80 and Other disorder of impulse control 312.39 [facility] [address] [place] [address] 24092- 4368 May, Left knee pain M25.562 [facility] [id number] [place] [address] 75498- 7035 May, Arthritis M19.90 [facility] [id number] [place] [address] 71423- 5836 May, [facility] [id number] [place] [address] 73530- 2121 May, Anxiety F41.9 ; Unspecified episodic mood disorder 296.90 ; Combinations of drug dependence excluding opioid type drug, unspecified abuse 304.80 and Other disorder of impulse control 312.39 [facility] [address] [place] [address] 05589- 8131 May, Left knee pain M25.562 [facility] [address] [place] [address] 65867- 4062 11 May, 2015 Left knee pain M25.562 ; Combinations of drug dependence excluding opioid type drug, unspecified abuse 304.80 ; Other disorder of impulse control 312.39 ; Fibromyalgia M79.7 ; Hypertension I10 ; Unspecified episodic mood disorder 296.90 and Left hip pain M25.552 [place] [address] [address]- 4805 May, Unspecified episodic mood disorder 296.90 ; Other disorder of impulse control 312.39 ; Combinations of drug dependence excluding opioid type drug, unspecified abuse 304.80 and Anxiety F41.9 [place] [address] [place] [address] 46511- 1508 May, Left knee pain M25.562 ; Combinations of drug dependence excluding opioid type drug, unspecified abuse 304.80 ; Other disorder of impulse control 312.39 ; Fibromyalgia M79.7 ; Hypertension I10 ; Unspecified episodic mood disorder 296.90 and Left hip pain M25.552 [place] [id number] [place] [address] 31226- 3925 May, Anxiety F41.9 ; Unspecified episodic mood disorder 296.90 ; Other disorder of impulse control 312.39 and Combinations of drug dependence excluding opioid type drug, unspecified abuse 304.80 [place] [facility] [id number] [place] [address] 38595- 0945 Apr, 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 and 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, implants and grafts, initial encounter T84.82XA [place] [id number] [place] [address] 23602- 7079 Apr, Anxiety F41.9 ; Unspecified episodic mood disorder 296.90 ; Combinations of drug dependence excluding opioid type drug, unspecified abuse 304.80 and Other disorder of impulse control 312.39 [place] [address] [place] [address] 74071- 5409 Apr, Arthritis M19.90 [place] [id number] [place] [address] 89028- 1565 Apr, Anxiety F41.9 ; Unspecified episodic mood disorder 296.90 ; Combinations of drug dependence excluding opioid type drug, unspecified abuse 304.80 and Other disorder of impulse control 312.39 [place] [id number] [place] [address] 74518- 9753 Apr, Arthritis M19.90 [facility] [address] [address]- 3104 15 Apr, 2015 [facility] [id number] [place] [address] 75564- 2331 15 Apr, 2015 [facility] [address] [place] [address] 71441- 6707 14 Apr, 2015 Unspecified episodic mood disorder 296.90 ; Combinations of drug dependence excluding opioid type drug, unspecified abuse 304.80 ; Other disorder of impulse control 312.39 and Anxiety F41.9 [facility] [id number] [place] [address] 11733 -1259 Apr, Left knee pain M25.562 [facility] [address] [place] [address] 87451- 4317 Apr, [facility] [id number] [place] [address] 84728- 7417 Mar, Unspecified episodic mood disorder 296.90 ; Anxiety F41.9 ; Other disorder of impulse control 312.39 and Combinations of drug dependence excluding opioid type drug, unspecified abuse 304.80 [facility] [address] [place] [address] 92539- 3137 Mar, Hyperpigmentation L81.9 [facility] [address] [place] [address] 77260- 6182 Mar, Arthritis M19.90 and Anxiety F41.9 [facility] [address] [place] [address] 57354- 6798 Mar, Unspecified episodic mood disorder F39 ; Combined drug dependence excluding opioids, 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 ; Other disorder of impulse control F63.89 and Anxiety F41.9 [facility] [address] [address]- 7746 12 Mar, 2015 Well woman exam Z01.419 ; Other fatigue R53.83 ; Hot flashes N95.1 ; Depression, unspecified depression type F32.9 and Body mass index (BMI) of 23.0-23.9 in adult Z68.[address] 71301- 6086 11 Mar, 2015 Unspecified episodic mood disorder 296.90 ; Other disorder of impulse control 312.39 and Anxiety F41.[address] 19062- 9619 11 Mar, 2015 Well woman exam Z01.419 [...] of breast Z12.39 and Limited mobility Z74.[address] 68584- 0006 10 Mar, [address] 02469- 4099 Mar, [address] 83922- 7956 08 Mar, [address] 31472- 9562 03 Mar, 2015 Other specified complication of internal orthopedic prosthetic devices, implants and grafts, initial encounter T84.89XA ; Fibromyalgia M79.7 ; Hypertension I10 ; Anemia D64.9 ; Insomnia G47.00 ; Anxiety F41.9 ; Arthritis M19.90 and Migraine G43.[address] 18493- 8904 Mar, [facility] [address] [address]- 0631 Feb, [facility] [id number] [place] [address] 55888- 5430 Feb, Arthritis M19.90 and Anxiety F41.9 [facility] [id number] [place] [address] 69369- 5558 Feb, [facility] [id number] [place] [address] 55552- 2649 Feb, [facility] [id number] [place] [address] 16524- 2425 Feb, [facility] [id number] [place] [address] 66901- 4060 Feb, [facility] [id number] [place] [address] 62788- 2096 Feb, Anxiety F41.9 [facility] [address] [place] [address] 79486- 0808 Feb, [facility] [id number] [place] [address] 82324- 0660 Feb, [facility] [address] [address]- 0053 Feb, 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 and Fibromyalgia M79.7 [facility] [address] [address]- 3533 Feb, [facility] [id number] [place] [address] 86589- 7655 Jan, [facility] [id number] [address]- 9882 Jan, [facility] [address] [address]- 9098 Jan, [facility] [address] [address]- 9882 Jan, [facility] [id number] [place] [address] 737916- 8625 Jan, [facility] [address] [address]- 5500 Jan, [facility] [id number] [place] [address] 50420- 0923 Jan, [facility] [id number] [place] [address] 386846- 1952 Jan, [facility] [id number] [place] [address]81- 6685 Dec, [facility] [id number] [place] [address] 18550- 7673 Dec, Left knee pain M25.562 [facility] [id number] [place] [address] 57933- 6715 Dec, Left knee pain M25.562 [facility] [id number] [place] [address] 18459- 7085 Dec, Fibromyalgia M79.7 ; Hypertension I10 and Arthritis M19.90 [facility] [id number] [address]843 Dec, [facility] [id number] [address] 1552 Dec, [facility] [id number] [address] 6998 Dec, [facility] [id number] [place] [address] 41423- 3523 Dec, [facility] [id number] [address] 0140 Nov, [facility] [id number] [place] [address] 94735- 4943 Nov, [facility] [address] [facility] [id number] [address] 1305 Nov, [facility] [address] [facility] [id number] [place] [address] 5167 Nov, Hypertension I10 [facility] [address] [facility] [id number] [place] [address] 2546 23 Oct, 2014 [facility] [address] [facility] [id number] [address] 2591 Oct, 2014 [facility] [address] [facility] [id number] [address] 3616 Oct, 2014 [facility] [address] [facility] [id number] [place] [address]- 2571 Oct, 2014 [facility] [address] [facility] [id number] [place] [address] 6267 Oct, [facility] [address] [facility] [id number] [place] [address] 1661 Sep, [facility] [address] [facility] [id number] [place] [address]- 4074 Sep, [facility] [address] [facility] [id number] [place] [address]- 6926 Sep, Hip pain associated with recalled total hip arthroplasty hardware 996.77 [facility] [place] [facility] [address] [facility] [id number] [place] [address] 25[address] Sep, [facility] [place] [facility] [address] [facility] [id number] [place] [address]- 2544 Sep, [facility] [place] [facility] [address] [facility] [id number] [place] [address]- 6097 Sep, [facility] [place] [facility] [address] [facility] [id number] [place] [address]- 5957 Aug, [facility] [place] [facility] [address] [facility] [id number] [place] [address]- 2731 Jul, [facility] [place] [facility] [address] [id number] [place] [address]- 4819 June, [facility] [place] [facility] [address] [id number] [place] [address]- 3133 June, [facility] [place] [facility] [address] [id number] [place] [address]- 9125 June, [facility] [place] [facility] [address] [id number] [place] [address]- 8733 June, [facility] [place] [facility] [address] [id number] [place]75 June, [facility] [place] [facility] [address] [id number] [place] [address]- 1758 June, [facility] [place] [facility] [address] [id number] [place] [address]- 1624 May, [facility] [place] [facility] [address] [id number] [place] [address]- 0870 May, [facility] [place] [facility] [address] [id number] [place] [address]- 8261 May, [facility] [place] [facility] [address] [id number] [place] [address]- 9875 Apr, [facility] [place] [facility] [address] [id number] [place] [address]- 6025 Apr, [facility] [place] [facility] [address] [id number] [place] [address]- 3972 Apr, [facility] [place] [facility] [address] [id number] [place] [address]- 3028 Apr, [facility] [place] [facility] [address] [id number] [place] [address]- 3608 Apr, [facility] [place] [facility] [address] [id number] [place] [address]- 6245 Apr, [facility] [place] [facility] [address] [id number] [place] [address]- 0462 Apr, [facility] [place] [facility] [address] [id number] [place] [address]- 7395 Apr, [facility] [place] [facility] [address] [id number] [place] [address]- 6060 Apr, [facility] [place] [facility] [address] [facility] [id number] [place] [address]- 3194 Apr, [facility] [place] [facility] [address] [id number] [place] [address]- 1312 Apr, [facility] [place] [facility] [address] [id number] [place] [address]- 0059 Mar, [facility] [place] [facility] [address] [id number] [place] [address]- 7053 Mar, [facility] [place] [facility] [address] [id number] [place] [address]- 1341 Mar, [facility] [place] [facility] [address] [facility] [id number] [place] [address]- 0092 Mar, [facility] [place] [facility] [address] [id number] [place] [address]- 3609 Mar, [facility] [place] [facility] [address] [facility] [id number] [place] [address]- 9119 Mar, [facility] [place] [facility] [address] [id number] [place] [address]- 7527 Feb, [facility] [place] [facility] [address] [id number] [place] [address]- 7236 Feb, [facility] [place] [facility] [address] [id number] [place] [address]- 6325 Feb, [facility] [place] [facility] [address] [facility] [id number] [place] [address]- 4982 Feb, [facility] [place] [facility] [address] [facility] [id number] [place] [address]- 2818 Jan, [facility] [place] [facility] [address] [id number] [place] [address]- 1342 Jan, [facility] [place] [facility] [address] [id number] [place] [address]- 5259 Jan, [facility] [place] [facility] [address] [id number] [place] [address]- 2588 Jan, [facility] [place] [facility] [address] [id number] [place] [address]- 9627 Dec, [facility] [place] [facility] [address] [id number] [place] [address]- 9440 Dec, [facility] [place] [facility] [address] [id number] [place] [address]- 8623 Dec, [facility] [place] [facility] [address] [id number] [place] [address]- 1708 Dec, [facility] [place] [facility] [address] [id number] [place] [address]- 0283 Dec, [facility] [place] [facility] [address] [id number] [place] [address]- 5326 Dec, [facility] [place] [facility] [address] [id number] [place] [address]- 8216 Dec, [facility] [place] [facility] [address] [id number] [place] [address]- 9463 Dec, [facility] [place] [facility] [address] [id number] [place] [address]- 5044 Dec, [facility] [place] [facility] [address] [id number] [place] [address]- 6091 Dec, [facility] [place] [facility] [address] [id number] [place] [address]- 7737 Dec, [facility] [place] [facility] [address] [id number] [place] [address]- 8616 Nov, [facility] [place] [facility] [address] [id number] [place] [address]- 3305 28 Nov, 2013 [facility] [place] [facility] [address] [id number] [place] [address]- 6410 28 Nov, 2013 [facility] [place] [facility] [address] [id number] [place] [address]- 0537 17 Nov, 2013 [facility] [place] [facility] [address] [id number] [place] [address]- 7630 17 Nov, 2013 [facility] [place] [facility] [address] [id number] [place] [address]- 3822 15 Nov, 2013 [facility] [place] [facility] [address] [id number] [place] [address]- 7074 15 Nov, 2013 [facility] [place] [facility] [address] [id number] [place] [address]- 9118 15 Nov, 2013 [facility] [place] [facility] [address] [id number] [place] [address]- 5234 15 Nov, 2013 [facility] [place] [facility] [address] [id number] [place] [address]- 9920 14 Nov, 2013 [facility] [place] [facility] [address] [id number] [place] [address]- 7891 14 Nov, 2013 [facility] [place] [facility] [address] [id number] [place] [address]- 0791 14 Nov, 2013 [facility] [place] [facility] [address] [id number] [place] [address]- 2388 14 Nov, 2013 [facility] [place] [facility] [address] [id number] [place] [address]- 0703 13 Nov, 2013 [facility] [place] [facility] [address] [id number] [place] [address]- 2032 13 Nov, 2013 [facility] [place] [facility] [address] [id number] [place] [address]- 8778 11 Nov, 2013 [facility] [place] [facility] [address] [id number] [place] [address]- 0377 11 Nov, 2013 [facility] [place] [facility] [address] [id number] [place] [address]- 3048 07 Nov, 2013 [facility] [place] [facility] [address] [id number] [place] [address]- 0912 07 Nov, 2013 [facility] [place] [facility] [address] [id number] [place] [address]- 0246 07 Nov, 2013 [facility] [place] [facility] [address] [id number] [place] [address]- 0429 07 Nov, 2013 [facility] [place] [facility] [address] [id number] [place] [address]- 3026 30 Sep, 2013 [facility] [place] [facility] [address] [id number] [place] [address]- 1076 30 Sep, 2013 [facility] [place] [facility] [address] [id number] [place] [address]- 6897 26 Oct, 2013 [facility] [place] [facility] [address] [id number] [place] [address]- 2414 26 Sep, 2013 [facility] [place] [facility] [address] [id number] [place] [address]- 3940 22 Sep, 2013 [facility] [place] [facility] [address] [id number] [place] [address]- 2549 22 Oct, 2013 [facility] [place] [facility] [address] [id number] [place] [address]- 2269 18 Sep, 2013 [facility] [place] [facility] [address] [id number] [place] [address]- 2549 18 Sep, 2013 [facility] [place] [facility] [address] [id number] [place] [address]- 254 18 Sep, 2013 [facility] [place] [facility] [address] [id number] [place] [address]- 2548 18 Sep, 2013 [facility] [place] [facility] [address] [id number] [place] [address]- 2546 12 Oct, 2013 [facility] [place] [facility] [address] [id number] [place] [address]- 2844 Oct, [facility] [place] [facility] [address] [id number] [place] [address]- 3669 Oct, [facility] [place] [facility] [address] [id number] [place] [address]- 2317 Oct, [facility] [place] [facility] [address] [id number] [place] [address]- 7260 Sep, [facility] [place] [facility] [address] [id number] [place] [address]- 7508 Sep, [facility] [place] [facility] [address] [id number] [place] [address]- 1312 Sep, [facility] [place] [facility] [address] [id number] [place] [address]- 8716 Sep, [facility] [place] [facility] [address] [id number] [place] [address]- 7783 Sep, [facility] [place] [facility] [address] [id number] [place] [address]- 3011 Sep, [facility] [place] [facility] [address] [id number] [place] [address]- 6422 Sep, [facility] [place] [facility] [address] [id number] [place] [address]- 2041 Sep, [facility] [place] [facility] [address] [id number] [place] [address]- 5953 Sep, [facility] [place] [facility] [address] [id number] [place] [address]- 0773 Sep, [facility] [place] [facility] [address] [id number] [place] [address]- 1892 Sep, [facility] [place] [facility] [address] [id number] [place] [address]- 5946 Sep, [facility] [place] [facility] [address] [id number] [place] [address]- 2279 Sep, [facility] [place] [facility] [address] [id number] [place] [address]- 1526 Sep, [facility] [place] [facility] [address] [id number] [place] [address]- 2810 Sep, [facility] [place] [facility] [address] [id number] [place] [address]- 0465 Sep, [facility] [place] [facility] [address] [id number] [place] [address]- 3427 Sep, [facility] [place] [facility] [address] [id number] [place] [address]- 8858 Sep, [facility] [place] [facility] [address] [id number] [place] [address]- 9391 Aug, [facility] [place] [facility] [address] [id number] [place] [address]- 3093 Aug, [facility] [place] [facility] [address] [id number] [place] [address]- 1369 Aug, [facility] [place] [facility] [address] [id number] [place] [address]- 0041 Aug, [facility] [place] [facility] [address] [id number] [place] [address]- 7498 Aug, [facility] [place] [facility] [address] [id number] [place] [address]- 4226 Aug, [facility] [place] [facility] [address] [id number] [place] [address]- 0998 Jul, [facility] [place] [facility] [address] [id number] [place] [address]- 8308 Jul, [facility] [place] [facility] [address] [id number] [place] [address]- 3013 Jul, [facility] [place] [facility] [address] [id number] [place] [address]- 2813 Jul, [facility] [place] [facility] [address] [id number] [place] [address]- 8770 June, [facility] [place] [facility] [address] [id number] [place] [address]- 3862 June, [facility] [place] [facility] [address] [id number] [place] [address]- 6309 June, [facility] [place] [facility] [address] [id number] [place] [address]- 3555 June, [facility] [place] [facility] [address] [id number] [place] [address]- 6469 June, [facility] [place] [facility] [address] [id number] [place] [address]- 5924 June, [facility] [place] [facility] [address] [id number] [place] [address]- 7407 June, [facility] [place] [facility] [address] [id number] [place] [address]- 0048 May, [facility] [place] [facility] [address] [id number] [place] [address]- 3589 May, [facility] [place] [facility] [address] [id number] [place] [address]- 1649 May, [facility] [place] [facility] [address] [id number] [place] [address]- 1052 May, [facility] [place] [facility] [address] [id number] [place] [address]- 8814 May, [facility] [place] [facility] [address] [id number] [place] [address]- 3161 May, [facility] [place] [facility] [address] [id number] [place] [address]- 6739 Apr, [facility] [place] [facility] [address] [id number] [place] [address]- 5842 Apr, [facility] [place] [facility] [address] [id number] [place] [address]- 5032 28 Apr, 2013 [facility] [place] [facility] [address] [id number] [place] [address]- 9126 28 Apr, 2013 [facility] [place] [facility] [address] [id number] [place] [address]- 7865 14 Apr, 2013 [facility] [place] [facility] [address] [id number] [place] [address]- 9571 14 Apr, 2013 [facility] [place] [facility] [address] [id number] [place] [address]- 1060 Apr, [facility] [place] [facility] [address] [id number] [place] [address]- 2525 Apr, [facility] [place] [facility] [address] [id number] [place] [address]- 4872 Apr, [facility] [place] [facility] [address] [id number] [place] [address]- 6267 Apr, [facility] [place] [facility] [address] [id number] [place] [address]- 5791 Apr, [facility] [place] [facility] [address] [id number] [place] [address]- 8010 Apr, [facility] [place] [facility] [address] [id number] [place] [address]- 4051 Apr, [facility] [place] [facility] [address] [id number] [place] [address]- 7665 Apr, [facility] [place] [facility] [address] [id number] [place] [address]- 4953 Mar, [facility] [place] [facility] [address] [id number] [place] [address]- 4489 Mar, [facility] [place] [facility] [address] [id number] [place] [address]- 2092 Mar, [facility] [place] [facility] [address] [id number] [place] [address]- 8337 Feb, [facility] [place] [facility] [address] [id number] [place] [address]- 8973 Feb, [facility] [place] [facility] [address] [id number] [place] [address]- 6347 Feb, [facility] [address] [id number] [place] [address]- 4454 Feb, [facility] [address] [id number] [place] [address]- 3090 Feb, [facility] [address] [id number] [place] [address]- 1108 Feb, [facility] [address] [id number] [place] [address]- 3206 Feb, [facility] [address] [id number] [place] [address]- 8616 Feb, [facility] [address] [id number] [place] [address]- 5046 Feb, [facility] [address] [id number] [place] [address]- 7551 Feb, [facility] [address] [id number] [place] [address]- 5223 Jan, [facility] [address] [id number] [place] [address]- 4247 Jan, [facility] [address] [id number] [place] [address]- 1915 Jan, [facility] [address] [id number] [place] [address]- 3452 Jan, [facility] [address] [id number] [place] [address]- 7638 Jan, [facility] [address] [id number] [place] [address]- 1862 Jan, [facility] [address] [id number] [place] [address]- 3853 Jan, [facility] [address] [id number] [place] [address]- 2584 Jan, [facility] [address] [id number] [place] [address]- 1734 Jan, [facility] [place] [facility] [address] [id number] [place] [address]- 9783 Jan, [facility] [place] [facility] [address] [id number] [place] [address]- 2969 Jan, [facility] [place] [facility] [address] [id number] [place] [address]- 5205 Jan, [facility] [place] [facility] [address] [id number] [place] [address]- 6972 16 Jan, 2013 [facility] [place] [facility] [address] [id number] [place] [address]- 8878 Jan, [facility] [place] [facility] [address] [id number] [place] [address]- 2548 Jan, [facility] [place] [facility] [address] [id number] [place] [address] Jan, [facility] [place] [facility] [address] [id number] [place] [address] Jan, [facility] [place] [facility] [address] [id number] [place] [address] Jan, [facility] [place] [facility] [address] [id number] [place] [address] Jan, [facility] [place] [facility] [address] [id number] [place] [address] Jan, [facility] [place] [facility] [address] [id number] [place] [address] Jan, [facility] [place] [facility] [address] [id number] [place] [address]6 Dec, [facility] [place] [facility] [address] [id number] [place] [address] Dec, [facility] [place] [facility] [address] [id number] [place] [address] Dec, [facility] [place] [facility] [address] [id number] [place] [address] Dec, [facility] [place] [facility] [address] [id number] [place] [address] Dec, [facility] [place] [facility] [address] [id number] [place] [address] Dec, [facility] [place] [facility] [address] [id number] [place] [address] Dec, [facility] [place] [facility] [address] [id number] [place] [address] Dec, [facility] [place] [facility] [address] [id number] [place] [address] Dec, [facility] [place] [facility] [address] [id number] [place] [address] Dec, [facility] [place] [facility] [address] [id number] [place] [address] Nov, [facility] [place] [facility] [address] [id number] [place] [address] Nov, [facility] [place] [facility] [address] [id number] [place] [address] Nov, [facility] [place] [facility] [address] [id number] [place] [address] Nov, [facility] [place] [facility] [address] [id number] [place] [address] Nov, [facility] [place] [facility] [address] [id number] [place] [address] Nov, [facility] [place] [facility] [address] [id number] [place] [address]99 Nov, [facility] [place] [facility] [address] [id number] [place] [address] Nov, [facility] [place] [facility] [address] [id number] [place] [address] Nov, [facility] [place] [facility] [address] [id number] [place] [address] Nov, [facility] [place] [facility] [address] [id number] [place] [address]46 Oct, [facility] [place] [facility] [address] [id number] [place] [address] 2546 Oct, [facility] [place] [facility] [address] [id number] [place] [address] 2541 Oct, [facility] [place] [facility] [address] [id number] [place] [address]- [address]256 Oct, [facility] [place] [facility] [address] [id number] [place] [address] 0758 Oct, [facility] [place] [facility] [address] [id number] [place] [address] Sep, [facility] [place] [facility] [address] [id number] [place] [address]88 Sep, [facility] [place] [facility] [address] [id number] [place] [address] Aug, [facility] [place] [facility] [address] [id number] [place] [address]88 Aug, [facility] [place] [facility] [address] [id number] [place] [address] 2548 Aug, [facility] [place] [facility] [address] [id number] [place] [address] 2541 Aug, [facility] [place] [facility] [address] [id number] [place] [address] 2546 Aug, [facility] [place] [facility] [address] [id number] [place] [address] 2540 Aug, [facility] [place] [facility] [address] [id number] [place] [address] Aug, [facility] [address] [id number] [place] [address] Jul, [facility] [address] [id number] [place] [address] Jul, [facility] [address] [id number] [place] [address] June, [facility] [address] [id number] [place] [address]- 8826 June, [facility] [address] [id number] [place] [address] June, [facility] [address] [id number] [place] [address] June, [facility] [address] [id number] [place] [address]- 80[address] June, [facility] [address] [id number] [place] [address]- 1094 June, [facility] [address] [id number] [place] [address]998 June, [facility] [address] [id number] [place] [address]- [address]150 June, [facility] [address] [id number] [place] [address] June, [facility] [place] [facility] [address] [id number] [place] [address]- [address]249 June, [facility] [place] [facility] [address] [id number] [place] [address]- 4927 June, [facility] [place] [facility] [address] [id number] [place] [address] May, [facility] [place] [facility] [address] [id number] [place] [address]- 0827 May, [facility] [address] [id number] [place] [address]- [address] 08 May, 2012 [facility] [address] [id number] [place] [address]- [address] May, [facility] [address] [id number] [place] [address]- [address]270 Apr, [facility] [address] [id number] [place] [address]- 2941 Apr, [facility] [address] [id number] [place] [address]139 Apr, [facility] [address] [id number] [place] [address]- [address]139 Mar, [facility] [address] [id number] [place] [address] 7661 Mar, [facility] [address] [id number] [place] [address]- 2041 Feb, [facility] [address] [id number] [place] [address]- 8591 Feb, [facility] [address] [id number] [place] [address]- 9625 Feb, [facility] [address] [id number] [place] [address]- 8977 Feb, [facility] [address] [id number] [place] [address]- [address] 16 Feb, 2012 [facility] [address] [id number] [place] [address]- [address] 14 Feb, 2012 [facility] [address] [id number] [place] [address]- 5546 Feb, [facility] [facility] [address] [id number] [place] [address] Jan, [facility] [address] [id number] [place] [address] Jan, [facility] [place] [facility] [address] [id number] [place] [address] Jan, [facility] [place] [facility] [address] [id number] [place] [address] 6[address] Jan, [facility] [place] [facility] [address] [id number] [place] [address] 9[address] Jan, [facility] [place] [facility] [address] [id number] [place] [address] 478[address] Jan, [facility] [place] [facility] [address] [id number] [place] [address] 4007 Jan, [facility] [place] [facility] [address] [id number] [place] [address] 3256 Jan, [facility] [place] [facility] [address] [facility] [id number] [place] [address] 8625 Jan, [facility] [place] [facility] [address] [id number] [place] [address]- 7577 Jan, [facility] [place] [facility] [address] [id number] [place] [address] 9194 Jan, [facility] [place] [facility] [address] [facility] [id number] [address] Dec, [facility] [place] [facility] [address] [facility] [id number] [place] [address] Dec, [facility] [place] [facility] [address] [id number] [place] [address] 8175 Dec, [facility] [place] [facility] [address] [id number] [place] [address] 8899 Dec, [facility] [place] [facility] [address] [id number] [place] [address]- 9966 Nov, [facility] [place] [facility] [address] [id number] [place] [address] 3596 Nov, [facility] [place] [facility] [address] [id number] [place] [address] 08 Nov, 2011 [facility] [place] [facility] [address] [id number] [place] [address] 6486 27 Oct, 2011 [facility] [place] [facility] [address] [id number] [place] [address]- 7076 24 Oct, 2011 [facility] [place] [facility] [address] [id number] [place] [address]- 1136 21 Oct, 2011 [facility] [place] [facility] [address] [id number] [place] [address]- 9966 10 Oct, 2011 [facility] [place] [facility] [address] [id number] [place] [address]- 6446 07 Oct, 2011 [facility] [place] [facility] [address] [id number] [place] [address]- 7456 04 Oct, 2011 [facility] [place] [facility] [address] [id number] [place] [address]- 7105 04 Oct, 2011 [facility] [place] [facility] [address] [id number] [place] [address] 4624 29 Sep, 2011 [facility] [place] [facility] [address] [id number] [place] [address]- 5105 Sep, [facility] [place] [facility] [address] [id number] [place] [address] Sep, [facility] [place] [facility] [address] [id number] [place] [address]- 8737 Sep, [facility] [place] [facility] [address] [id number] [place] [address]- 6307 Sep, [facility] [place] [facility] [address] [id number] [place] [address]- 1352 30 Aug, 2011 [facility] [place] [facility] [address] [id number] [place] [address] 2666 Aug, [facility] [place] [facility] [address] [id number] [place] [address]- 4226 17 Aug, 2011 [facility] [place] [facility] [address] [id number] [place] [address] 6303 16 Aug, 2011 [facility] [place] [facility] [address] [id number] [place] [address]- 5927 13 Aug, 2011 [facility] [place] [facility] [address] [id number] [place] [address] 9926 Aug, [facility] [place] [facility] [address] [id number] [place] [address] 6758 Aug, [facility] [place] [facility] [address] [id number] [place] [address] 7075 Jul, [facility] [place] [facility] [address] [id number] [place] [address] 8517 Jul, [facility] [place] [facility] [address] [id number] [place] [address] 3519 Jul, [facility] [place] [facility] [address] [id number] [place] [address] 5078 Jul, [facility] [place] [facility] [address] [id number] [place] [address] 7312 Jul, [facility] [place] [facility] [address] [id number] [place] [address]- 0038 Jul, [facility] [place] [facility] [address] [id number] [place] [address]- 2972 Jul, [facility] [place] [facility] [address] [id number] [place] [address]- 9600 Jul, [facility] [place] [facility] [address] [id number] [place] [address]- 3206 Jul, [facility] [place] [facility] [address] [id number] [place] [address]- 2489 June, [facility] [place] [facility] [address] [id number] [place] [address]- 7500 June, [facility] [place] [facility] [address] [id number] [place] [address]- 6260 June, [facility] [address] [id number] [place] [address]- 5890 June, [facility] [place] [facility] [address] [id number] [place] [address]- 5425 June, [facility] [place] [facility] [address] [id number] [place] [address]- 6991 June, [facility] [place] [facility] [address] [id number] [place] [address]- 8899 June, [facility] [place] [facility] [address] [id number] [place] [address]- 8328 June, [facility] [place] [facility] [address] [id number] [place] [address]- 6343 May, [facility] [place] [facility] [address] [id number] [place] [address]- 5021 May, [facility] [place] [facility] [address] [id number] [place] [address]- 6088 May, [facility] [place] [facility] [address] [id number] [place] [address]- 6979 May, [facility] [place] [facility] [address] [id number] [place] [address]- 7260 16 May, 2011 [facility] [place] [facility] [address] [id number] [place] [address]- 0435 16 May, 2011 [facility] [place] [facility] [address] [id number] [place] [address]- 4011 May, [facility] [place] [facility] [address] [id number] [place] [address]- 7006 Apr, [facility] [place] [facility] [address] [id number] [place] [address]- 4004 Apr, [facility] [place] [facility] [address] [id number] [place] [address]- 7408 Apr, [facility] [place] [facility] [address] [id number] [place] [address]- 3066 19 Apr, 2011 [facility] [address] [id number] [place] [address]- 9246 Apr, [facility] [place] [facility] [address] [id number] [place] [address]- 8646 Apr, [facility] [place] [facility] [address] [id number] [place] [address] 2546 Apr, [facility] [place] [facility] [address] [id number] [place] [address]- 0436 Mar, [facility] [place] [facility] [address] [id number] [place] [address]- 6466 Mar, [facility] [place] [facility] [address] [id number] [place] [address]- 3566 14 Mar, 2011 [facility] [place] [facility] [address] [id number] [place] [address]- 7606 13 Mar, 2011 [facility] [place] [facility] [address] [id number] [place] [address]- 5249 Mar, [facility] [place] [facility] [address] [id number] [place] [address]- 0302 Mar, [facility] [place] [facility] [address] [id number] [place] [address]- 1896 Mar, [facility] [place] [facility] [address] [id number] [place] [address]- 8426 Feb, [facility] [place] [facility] [address] [id number] [place] [address] 2546 Feb, [facility] [place] [facility] [address] [id number] [place] [address]- 4396 Feb, [facility] [place] [facility] [address] [id number] [place] [address] 2546 Feb, [facility] [place] [facility] [address] [id number] [place] [address]- 0666 Feb, [facility] [address] [id number] [place] [address]- 6498 Feb, [facility] [place] [facility] [address] [id number] [place] [address]- 6892 Feb, [facility] [address] [id number] [place] [address]- 3995 Feb, [facility] [address] [id number] [place] [address]- 6857 Feb, [facility] [address] [id number] [place] [address]- 6645 Feb, [facility] [address] [id number] [place] [address]- 8031 Jan, [facility] [address] [id number] [place] [address]- 6298 Jan, [facility] [address] [id number] [place] [address]- 8606 Jan, [facility] [place] [facility] [address] [id number] [place] [address]- 6843 Jan, [facility] [place] [facility] [address] [id number] [place] [address]- 1440 Jan, [facility] [place] [facility] [address] [id number] [place] [address]- 7803 Jan, [facility] [place] [facility] [address] [id number] [place] [address]- 8525 Jan, [facility] [place] [facility] [address] [id number] [place] [address]- 6569 Jan, [facility] [place] [facility] [address] [id number] [place] [address]- 0477 Jan, [facility] [place] [facility] [address] [id number] [place] [address]- 0567 Jan, [facility] [place] [facility] [address] [id number] [place] [address]- 9700 Jan, [facility] [place] [facility] [address] [id number] [place] [address]- 6272 17 Dec, 2010 [facility] [place] [facility] [address] [id number] [place] [address]- 4468 17 Dec, 2010 [facility] [place] [facility] [address] [id number] [place] [address]- 0730 17 Dec, 2010 [facility] [place] [facility] [address] [id number] [place] [address]- 5519 16 Dec, 2010 [facility] [place] [facility] [address] [id number] [place] [address]- 3301 14 Dec, 2010 [facility] [place] [facility] [address] [id number] [place] [address]- 5267 09 Dec, 2010 [facility] [place] [facility] [address] [id number] [place] [address]- 6292 08 Dec, 2010 [facility] [place] [facility] [address] [id number] [place] [address]- 9393 07 Dec, 2010 [facility] [place] [facility] [address] [id number] [place] [address]- 1351 02 Dec, 2010 [facility] [place] [facility] [address] [facility] [id number] [place] [address]- 5903 31 Nov, 2010 [facility] [place] [facility] [address] [id number] [place] [address]- 0805 31 Nov, 2010 [facility] [place] [facility] [address] [id number] [place] [address]- 0285 27 Nov, 2010 [facility] [place] [facility] [address] [id number] [place] [address]- 9098 24 Nov, 2010 [facility] [place] [facility] [address] [id number] [place] [address]- 2176 24 Nov, 2010 [facility] [place] [facility] [address] [facility] [id number] [place] [address]- 1584 13 Nov, 2010 [facility] [place] [facility] [id number] [address]- 92[address] Aug, [facility] [id number] [address] Feb, [facility] [id number] [place] Jan, [facility] [id number] [place] [address]- 8730 Jan, [facility] [address] [facility] [id number] [place] [address] Jan, [facility] [id number] [place] [address]- 1323 Jan, [facility] [id number] [address] Jan, [facility] [id number] [address]- 3764 Dec, [facility] [id number] [address]- 8244 Dec, [facility] [id number] [address]- 2528 Dec, [facility] [id number] [address]- 9275 Dec, [facility] [id number] [address]- 9168 Nov, [facility] [address] [id number] [address]- 2050 Nov, [facility] [id number] [address]- 5944 Nov, IMMUNIZATIONS No Known Immunizations SOCIAL HISTORY Never Assessed REASON FOR VISIT PT follow-up PLAN OF CARE Activity Details Follow Up 2 Weeks Reason:F/U PT VITAL SIGNS MEDICATIONS Unknown Medications RESULTS No Results PROCEDURES Procedure Date Ordered Result Body Site THERAPEUTIC EXERCISES July 19, 2015 INSTRUCTIONS MEDICATIONS ADMINISTERED No Known Medications MEDICAL [...]
--- OUTSIDE RECORDS SUMMARY | 2018-01-13 22:22 | XMS REPORT ---
Author Author WYATT SOTO [facility] [employer] Address Unknown Phone Unavailable Care Team Providers Care Vp Account Director Name Role Phone WYATT SOTO CP Unavailable [...]
--- OUTSIDE RECORDS SUMMARY | 2018-01-13 22:22 | XMS REPORT ---
Author Author WYATT SOTO [facility] [employer] Address Unknown Phone Unavailable Care Team Providers Care Manager Of Recruiting Name Role Phone WYATT SOTO CP Unavailable [...]
--- OUTSIDE RECORDS SUMMARY | 2018-01-13 22:22 | XMS REPORT ---
Author Author WYATT SOTO [facility] [employer] Address Unknown Phone Unavailable Care Team Providers Care Feed Mixer Name Role Phone WYATT SOTO CP Unavailable [...]
--- OUTSIDE RECORDS SUMMARY | 2018-01-13 22:24 | XMS REPORT ---
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 Active 05958550 Problem Unspecified episodic mood disorder F39 Active 55769218 Problem Hypertension I10 Active 61226525 Problem Venous insufficiency (chronic) (peripheral) I87.2 Active 566528672 Problem Gastroesophageal reflux disease, esophagitis presence not specified K21.9 Active 098465392 Problem Other chronic pain G89.29 Active 77392273 Problem Chronic hepatitis C without hepatic coma B18.2 Active 526705110 Problem Other psychoactive substance dependence, uncomplicated F19.20 Active 7261286 Problem 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, 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 420564996 ALLERGIES No Information ENCOUNTERS Encounter Location Date Diagnosis [facility] [id number] [place] [address] 91567- 9964 May, [facility] [id number] [place] [address] 25979- 3512 May, [facility] [id number] [place] [address] 72242- 3021 May, 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 ; Unspecified episodic mood disorder F39 ; Combined drug dependence excluding opioids, 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 ; Other psychoactive substance dependence, uncomplicated F19.20 and Anxiety F41.9 [facility] [id number] [place] [address] 01698- 9581 May, Other chronic pain G89.29 ; Left hip pain M25.552 ; Hypertension I10 ; 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, 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 and Unspecified episodic mood disorder F39 [facility] [id number] [place] [address] 14617- 9987 Apr, [facility] [id number] [place] [address] 12775 -3824 Apr, Neck pain M54.2 ; Left hip pain M25.552 and Fall, initial encounter W19.XXXA [facility] [address] 18946- 0009 Apr, Unspecified episodic mood disorder F39 ; Combined drug dependence excluding opioids, 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 ; Anxiety F41.9 ; Other psychoactive substance dependence, uncomplicated F19.20 and 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 [facility] [id number] [place] [address] 89676- 0053 Apr, [facility] [id number] [place] [address] 03633- 2289 Apr, Arthritis M19.90 and Unspecified episodic mood disorder F39 [facility] [id number] [place] [address] 28891- 0792 Apr, Unspecified episodic mood disorder F39 [facility] [id number] [place] [address] 33848- 8721 Apr, [facility] [id number] [place] [address] 21997- 3835 08 Apr, 2017 [facility] [id number] [place] [address] 30338- 9119 07 Apr, 2017 Unspecified episodic mood disorder F39 ; Combined drug dependence excluding opioids, 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 ; Anxiety F41.9 ; Other psychoactive substance dependence, uncomplicated F19.20 and 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 [facility] [id number] [place] [address] 61340- 4881 Mar, Unspecified episodic mood disorder F39 [facility] [id number] [place] [address] 49928- 2006 Mar, Gastroesophageal reflux disease, esophagitis presence not specified K21.9 [facility] [id number] [place] [address] 18035- 4976 Mar, Arthritis M19.90 and Unspecified episodic mood disorder F39 [facility] [id number] [place] [address] 02557- 9936 Feb, [facility] [id number] [place] [address] 22567- 3469 Feb, [facility] [id number] [place] [address] 62224- 9496 Feb, [facility] [id number] [place] [address] 13780- 9362 Feb, Arthritis M19.90 [facility] [address] [place] [address] 29739- 1637 Feb, Non-pressure chronic ulcer of right calf, 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 ; Unspecified episodic mood disorder F39 and Left hip pain M25.552 [facility] [address] [address]- 3742 Feb, [facility] [id number] [place] [address] 81994- 8098 Feb, [facility] [address] [place] [address] 78639- 2801 Jan, Arthritis M19.90 [facility] [address] [place] [address] 53969- 1469 Jan, Left hip pain M25.552 and Non-pressure chronic ulcer of right calf, 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 [facility] [address] [place] [address] 30649- 0524 Jan, Chronic hepatitis C without hepatic coma B18.2 [facility] [id number] [place] [address] 68920- 6172 Jan, Encounter for immunization Z23 ; Venous insufficiency ( chronic) (peripheral) I87.2 ; Non-pressure chronic ulcer of unspecified calf limited to breakdown of skin L97.201 and Gastroesophageal reflux disease, esophagitis presence not specified K21.9 [facility] [id number] [place] [address] 13300- 0407 Jan, [facility] [id number] [place] [address] 38998- 0668 Jan, Chronic hepatitis C without hepatic coma B18.2 and Encounter for immunization Z23 [facility] [id number] [place] [address] 17795- 5684 Jan, Arthritis M19.90 [facility] [id number] [place] [address] 38412- 6854 Jan, [facility] [id number] [place] [address] 59820- 7982 Dec, [facility] [id number] [place] [address] 10875- 9536 Dec, Unspecified episodic mood disorder F39 [facility] [id number] [place] [address] 74368- 4159 Dec, Arthritis M19.90 [facility] [id number] [place] [address] 24486- 6897 Dec, Arthritis M19.90 [facility] [id number] [place] [address] 54383- 8754 Nov, [facility] [id number] [place] [address] 19783- 1491 Nov, [facility] [id number] [place] [address] 07993- 8842 Nov, Other psychoactive substance dependence, uncomplicated F19.20 ; 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, 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 and Chronic hepatitis C without hepatic coma B18.2 [facility] [id number] [place] [address] 81195- 1524 Nov, Arthritis M19.90 [facility] [address] [place] [address] 29797 -7993 Oct, Partial thickness burn of abdomen, initial encounter T21.22XA [facility] [id number] [place] [address] 14939- 6240 Oct, [facility] [id number] [place] [address] 79902- 9223 Sep, Arthritis M19.90 [facility] [id number] [place] [address] 50862- 1278 Sep, [facility] [id number] [place] [address] 62702- 6127 Sep, [facility] [id number] [place] [address] 86454- 2206 Sep, Unspecified episodic mood disorder F39 ; Chronic hepatitis C without hepatic coma B18.2 and Left hip pain M25.552 [facility] [id number] [place] [address] 11896- 3370 Sep, Arthritis M19.90 and Left hip pain M25.552 [facility] [id number] [place] [address] 66933- 0325 Aug, [facility] [id number] [place] [address] 02276- 0708 Aug, [facility] [id number] [place] [address] 09630- 0049 Aug, Chronic hepatitis C without hepatic coma B18.2 [facility] [id number] [place] [address] 18078- 6088 Aug, [facility] [id number] [place] [address] 33557- 3295 Aug, Chronic hepatitis C without hepatic coma B18.2 [facility] [id number] [place] [address] 71795- 8203 Aug, 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, 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 [facility] [id number] [place] [address] 97484- 5457 Aug, [facility] [id number] [place] [address] 46155- 5688 Aug, Chronic hepatitis C without hepatic coma B18.2 and Hypertension I10 [facility] [id number] [place] [address] 13309- 9072 Jul, [facility] [id number] [place] [address] 64255- 6994 June, [facility] [id number] [place] [address] 14963- 1584 Apr, Fibromyalgia M79.7 ; Left hip pain M25.552 and Decubitus ulcer of sacral region, stage 1 L89.151 [facility] [id number] [place] [address] 46348- 7403 Apr, [facility] [id number] [place] [address] 65257- 3793 Apr, [facility] [id number] [place] [address] 00413- 3022 Feb, [facility] [id number] [place] [address] 49954- 8613 Dec, Anxiety F41.9 ; Combined drug dependence excluding opioids, 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 and Unspecified episodic mood disorder F39 [facility] [address] [place] [address] 78354- 6493 Dec, [facility] [address] 09093- 8517 Nov, [facility] [id number] [place] [address] 51066- 8371 Nov, [facility] [id number] [place] [address] 23129- 5791 Nov, 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 and Anxiety F41.9 [facility] [id number] [place] [address] 16674- 5906 Oct, [facility] [id number] [place] [address] 57294 -8334 14 Oct, 2015 Open wound of left thigh, initial encounter S71.102A [facility] [id number] [place] [address] 33706- 0089 Oct, [facility] [id number] [place] [address] 07389- 1978 Sep, Unspecified episodic mood disorder F39 ; Other disorder of impulse control 312.39 ; Combined drug dependence excluding opioids, 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 and Anxiety F41.9 [facility] [address] [place] [address] 64688- 0989 Sep, Other disorder of impulse control 312.39 ; Combined drug dependence excluding opioids, 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 ; Anxiety F41.9 and Unspecified episodic mood disorder F39 [facility] [address] [place] [address] 05375- 0859 Sep, Other chronic pain G89.29 [facility] [id number] [place] [address] 69943- 5478 Sep, [facility] [id number] [place] [address] 56679- 6641 Sep, [facility] [id number] [place] [address] 45226- 9909 Aug, [facility] [id number] [place] [address] 51981- 5101 Aug, [facility] [address] [address]- 9663 Aug, [facility] [id number] [place] [address] 80981- 1189 Jul, [facility] [id number] [place] [address] 77004- 2784 Jul, [facility] [id number] [place] [address] 58041- 9425 Jul, [facility] [id number] [place] [address] 75705- 3324 17 Jul, 2015 Arthritis M19.90 ; Chronic hepatitis C without hepatic coma B18.2 and Left hip pain M25.552 [facility] [id number] [place] [address] 52719- 0063 Jul, Left knee pain M25.562 [facility] [id number] [place] [address] 53753- 7116 Jul, Combined drug dependence excluding opioids, 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 ; Anxiety F41.9 ; Other disorder of impulse control 312.39 and Unspecified episodic mood disorder F39 [facility] [address] [place] [address] 11713- 5400 Jul, Left knee pain M25.562 [facility] [address] [place] [address] 37174- 9183 Jul, Left knee pain M25.562 and Left hip pain M25.552 [facility] [address] [place] [address] 67899- 0343 Jul, [facility] [id number] [place] [address] 86622- 6710 June, [facility] [address] [place] [address] 77533- 3604 June, Combinations of drug dependence excluding opioid type drug, unspecified abuse 304.80 ; Other disorder of impulse control 312.39 ; Unspecified episodic mood disorder F39 and Anxiety F41.9 [facility] [address] [place] [address] 25185- 5138 June, Other fatigue R53.83 ; Headache R51 and Left knee pain M25.562 [facility] [id number] [place] [address] 94855- 9035 June, Unspecified episodic mood disorder F39 ; Combinations of drug dependence excluding opioid type drug, unspecified abuse 304.80 ; Other disorder of impulse control 312.39 and Anxiety F41.9 [facility] [id number] [place] [address] 83696- 0328 June, Anxiety F41.9 [facility] [id number] [place] [address] 82949- 3104 June, Pain in left knee M25.562 [facility] [id number] [place] [address] 72766- 2083 June, Anxiety F41.9 and Combinations of drug dependence excluding opioid type drug, unspecified abuse 304.80 [facility] [id number] [place] [address] 68640- 9059 June, Unspecified episodic mood disorder 296.90 ; Combinations of drug dependence excluding opioid type drug, unspecified abuse 304.80 and Other disorder of impulse control 312.39 [facility] [address] [place] [address] 17715- 1414 June, Anxiety F41.9 and Unspecified episodic mood disorder 296.90 [facility] [address] [place] [address] 38765- 0556 May, Arthritis M19.90 [facility] [id number] [place] [address] 03511- 1062 May, Arthritis M19.90 [facility] [address] [place] [address] 27178- 3214 May, Anxiety F41.9 ; Combinations of drug dependence excluding opioid type drug, unspecified abuse 304.80 and Other disorder of impulse control 312.39 [facility] [address] [address]- 3448 18 May, 2015 Left knee pain M25.562 [facility] [address] [address]- 2915 14 May, 2015 Arthritis M19.90 [facility] [facility] [address] [place] [address] 82524- 4031 May, [facility] [address] [address]- 8231 May, Anxiety F41.9 ; Unspecified episodic mood disorder 296.90 ; Combinations of drug dependence excluding opioid type drug, unspecified abuse 304.80 and Other disorder of impulse control 312.39 [facility] [address] [address]- 0550 May, Left knee pain M25.562 [place] [address] [place] [address] 58443- 6573 May, Left knee pain M25.562 ; Combinations of drug dependence excluding opioid type drug, unspecified abuse 304.80 ; Other disorder of impulse control 312.39 ; Fibromyalgia M79.7 ; Hypertension I10 ; Unspecified episodic mood disorder 296.90 and Left hip pain M25.552 [facility] [address] [address]- 8143 May, Unspecified episodic mood disorder 296.90 ; Other disorder of impulse control 312.39 ; Combinations of drug dependence excluding opioid type drug, unspecified abuse 304.80 and Anxiety F41.9 [facility] [address] [place] [address] 12057- 7890 May, Left knee pain M25.562 ; Combinations of drug dependence excluding opioid type drug, unspecified abuse 304.80 ; Other disorder of impulse control 312.39 ; Fibromyalgia M79.7 ; Hypertension I10 ; Unspecified episodic mood disorder 296.90 and Left hip pain M25.552 [place] [address] [address]- 5024 May, Anxiety F41.9 ; Unspecified episodic mood disorder 296.90 ; Other disorder of impulse control 312.39 and Combinations of drug dependence excluding opioid type drug, unspecified abuse 304.80 [facility] [address] [place] [address] 26962- 4605 30 Apr, 2015 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 and 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, implants and grafts, initial encounter T84.82XA [facility] [id number] [place] [address] 66345- 6867 Apr, Anxiety F41.9 ; Unspecified episodic mood disorder 296.90 ; Combinations of drug dependence excluding opioid type drug, unspecified abuse 304.80 and Other disorder of impulse control 312.39 [facility] [facility] [id number] [place] [address] 74095- 4013 Apr, Arthritis M19.90 [facility] [id number] [place] [address] 22516- 6143 Apr, Anxiety F41.9 ; Unspecified episodic mood disorder 296.90 ; Combinations of drug dependence excluding opioid type drug, unspecified abuse 304.80 and Other disorder of impulse control 312.39 [facility] [address] [place] [address] 86642- 7613 17 Apr, 2015 Arthritis M19.90 [facility] [facility] [id number] [place] [address] 95465- 4964 15 Apr, 2015 [facility] [id number] [place] [address] 28830- 9562 15 Apr, 2015 [place] [id number] [place] [address] 50634- 2140 14 Apr, 2015 Unspecified episodic mood disorder 296.90 ; Combinations of drug dependence excluding opioid type drug, unspecified abuse 304.80 ; Other disorder of impulse control 312.39 and Anxiety F41.9 [facility] [address] [place] [address] 46358 -7237 Apr, Left knee pain M25.562 [place] [id number] [place] [address] 55208- 0116 Apr, [facility] [address] 37371- 9993 Mar, Unspecified episodic mood disorder 296.90 ; Anxiety F41.9 ; Other disorder of impulse control 312.39 and Combinations of drug dependence excluding opioid type drug, unspecified abuse 304.80 [place] [id number] [place] [address] 82870- 0255 Mar, Hyperpigmentation L81.[address] 88123- 6870 Mar, Arthritis M19.90 and Anxiety F41.[address] 60193- 1392 Mar, Unspecified episodic mood disorder F39 ; Combined drug dependence excluding opioids, 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 ; Other disorder of impulse control 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 and Anxiety F41.9 [place] [id number] [place] [address] 15533- 0914 12 Mar, 2015 Well woman exam Z01.419 ; Other fatigue R53.83 ; Hot flashes N95.1 ; Depression, unspecified depression type F32.9 and Body mass index (BMI) of 23.0-23.9 in adult Z68.23 [place] [id number] [place] [address] 47114- 4780 11 Mar, 2015 Unspecified episodic mood disorder 296.90 ; Other disorder of impulse control 312.39 and Anxiety F41.9 [place] [id number] [place] [address] 30030- 5718 11 Mar, 2015 Well woman exam Z01.419 [...] breast Z12.39 and Limited mobility Z74.[address] 23222- 6644 Mar, [address] 44695- 6426 Mar, [address] 35697- 5092 Mar, [address] 78828- 2399 Mar, Other specified complication of internal orthopedic prosthetic devices, implants and grafts, initial encounter T84.89XA ; Fibromyalgia M79.7 ; Hypertension I10 ; Anemia D64.9 ; Insomnia G47.00 ; Anxiety F41.9 ; Arthritis M19.90 and Migraine G43.[address] 90116- 6920 Mar, [address] 28038- 4178 Feb, [address] 79478- 2975 Feb, Arthritis M19.90 and Anxiety F41.[address] 81496- 8833 Feb, [address] 59488- 0778 Feb, [address] [place] [address]- 4133 Feb, [facility] [address] [place] [address] 78887- 6242 Feb, [facility] [id number] [place] [address] 50251- 0487 Feb, Anxiety F41.9 [facility] [id number] [place] [address] 73466- 0776 Feb, [facility] [id number] [place] [address] 18149- 1449 Feb, [facility] [id number] [place] [address] 56779- 8968 Feb, 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 and Fibromyalgia M79.7 [facility] [id number] [place] [address] [phone]- [phone] Feb, [facility] [id number] [place] [address] [phone] Jan, [facility] [id number] [place] [address] [phone] Jan, [facility] [id number] [place] [address] [phone] Jan, [facility] [id number] [address] 24 Jan, 2015 [facility] [id number] [address] 16 Jan, 2015 [facility] [id number] [address] 08 Jan, 2015 [facility] [facility] [id number] [place] [address]49- 5596 Jan, [facility] [id number] [address] Jan, [facility] [address] [id number] [address] 8782 Dec, [facility] [id number] [place] [address] 58993- 8172 Dec, Left knee pain M25.562 [facility] [id number] [place] [address] 71803- 9205 Dec, Left knee pain M25.562 [facility] [id number] [place] [address] 63709- 4562 Dec, Fibromyalgia M79.7 ; Hypertension I10 and Arthritis M19.90 [facility] [id number] [place] [address] 07070- 5878 Dec, [facility] [id number] [place] [address] 37447- 7539 Dec, [facility] [id number] [place] [address] 41597- 8526 Dec, [facility] [id number] [place] [address] 44975- 2135 Dec, [facility] [id number] [place] [address] 77112- 1816 Nov, [facility] [id number] [place] [address] 13076- 7056 Nov, [facility] [id number] [place] [address] 51428- 3487 Nov, [facility] [id number] [place] [address] 20337- 2062 Nov, Hypertension I10 [facility] [id number] [place] [address] 73763- 3060 Oct, [facility] [id number] [address]- 6284 Oct, [facility] [id number] [place] [address] 64713- 0803 Oct, [facility] [address] [id number] [place] [address]- 0645 Oct, [facility] [address] [id number] [place] [address]- 3405 Oct, [facility] [address] [id number] [place] [address]- 2248 Sep, [facility] [address] [id number] [place] [address]- 4930 Sep, [facility] [address] [id number] [place] [address]- 9358 Sep, Hip pain associated with recalled total hip arthroplasty hardware 996.77 [facility] [address] [id number] [place] [address]- 8334 Sep, [facility] [address] [id number] [address]- 9829 Sep, [facility] [address] [id number] [place] [address]- 7306 Sep, [facility] [address] [id number] [place] [address]- 5027 Aug, [facility] [address] [id number] [place] [address]- 3444 Jul, [facility] [address] [id number], [place] [address]- 8286 June, [facility] [address] [id number] [address] 1501 June, [facility] [place] [facility] [address] [id number] [place] [address]- 6653 June, [facility] [place] [facility] [address] [id number] [place] [address]- 5547 June, [facility] [place] [facility] [address] [id number] [place] [address]- 1747 June, [facility] [address] [id number] [place] [address]- 2546 June, [facility] [address] [id number] [place] [address]- 8666 30 May, 2014 [facility] [place] [facility] [address] [id number] [place] [address]- 2546 May, [facility] [address] [id number] [place] [address]- 5346 May, [facility] [place] [facility] [address] [id number] [place] [address]- 2546 30 Apr, 2014 [facility] [place] [facility] [address] [id number] [place] [address]- 3126 30 Apr, 2014 [facility] [place] [facility] [address] [id number] [place] [address]- 6456 Apr, [facility] [place] [facility] [address] [id number] [place] [address]- 4207 Apr, [facility] [address] [id number] [place] [address]- 4824 Apr, [facility] [place] [facility] [address] [id number] [place] [address]- 3915 Apr, [facility] [place] [facility] [address] [id number] [place] [address]- 4745 Apr, [facility] [place] [facility] [address] [id number] [place] [address]- 2386 Apr, [facility] [place] [facility] [address] [id number] [place] [address]- 2033 Apr, [facility] [place] [facility] [address] [id number] [place] [address]- 8756 05 Apr, 2014 [facility] [place] [facility] [address] [id number] [place] [address]- 2546 Apr, [facility] [place] [facility] [address] [id number] [place] [address]- 8228 Mar, [facility] [place] [facility] [address] [id number] [place] [address]- 0353 Mar, 2014 [facility] [place] [facility] [address] [id number] [place] [address]- 6382 Mar, 2014 [facility] [place] [facility] [address] [id number] [place] [address]- 8298 Mar, 2014 [facility] [place] [facility] [address] [id number] [place] [address]- 5328 Mar, 2014 [facility] [place] [facility] [address] [id number] [place] [address]- 2453 Mar, [facility] [place] [facility] [address] [id number] [place] [address]- 8751 Feb, [facility] [place] [facility] [address] [id number] [place] [address]- 9196 Feb, [facility] [place] [facility] [address] [id number] [place] [address]- 8600 Feb, [facility] [place] [facility] [address] [id number] [place] [address]- 8558 Feb, [facility] [place] [facility] [address] [id number] [place] [address]- 7666 Jan, [facility] [place] [facility] [address] [id number] [place] [address]- 6574 Jan, [facility] [place] [facility] [address] [id number] [place] [address]- 4490 Jan, [facility] [place] [facility] [address] [id number] [place] 3243 Jan, [facility] [place] [facility] [address] [id number] [place] [address]- 2420 Dec, [facility] [place] [facility] [address] [id number] [place] 3341 Dec, [facility] [place] [facility] [address] [id number] [place] [address]- 6719 Dec, [facility] [place] [facility] [address] [id number] [place] [address]- 8012 Dec, [facility] [place] [facility] [address] [id number] [place] [address]- 2189 Dec, [facility] [place] [facility] [address] [id number] [place] [address]- 4698 Dec, [facility] [place] [facility] [address] [id number] [place] [address]- 0807 Dec, [facility] [place] [facility] [address] [id number] [place] [address]- 1340 Dec, [facility] [place] [facility] [address] [id number] [place] [address]- 9863 Dec, [facility] [place] [facility] [address] [id number] [place] [address]- 6057 Dec, [facility] [place] [facility] [address] [id number] [place] [address]- 9823 Dec, [facility] [place] [facility] [address] [id number] [place] [address]- 4324 Nov, [facility] [place] [facility] [address] [id number] [place] [address]- 9125 Nov, [facility] [place] [facility] [address] [id number] [place] [address]- 6097 28 Nov, 2013 [facility] [place] [facility] [address] [id number] [place] [address]- 7790 Nov, [facility] [place] [facility] [address] [id number] [place] [address]- 5091 17 Nov, 2013 [facility] [place] [facility] [address] [id number] [place] [address]- 5291 15 Nov, 2013 [facility] [place] [facility] [address] [id number] [place] [address]- 5721 15 Nov, 2013 [facility] [place] [facility] [address] [id number] [place] [address]- 6081 15 Nov, 2013 [facility] [place] [facility] [address] [id number] [place] [address]- 8468 15 Nov, 2013 [facility] [place] [facility] [address] [id number] [place] [address]- 9195 14 Nov, 2013 [facility] [place] [facility] [address] [id number] [place] [address]- 2270 14 Nov, 2013 [facility] [place] [facility] [address] [id number] [place] [address]- 2075 14 Nov, 2013 [facility] [place] [facility] [address] [id number] [place] [address]- 2099 14 Nov, 2013 [facility] [place] [facility] [address] [id number] [place] [address]- 4461 13 Nov, 2013 [facility] [place] [facility] [address] [id number] [address]- 0225 13 Nov, 2013 [facility] [place] [facility] [address] [id number] [place] [address]- 5108 11 Nov, 2013 [facility] [place] [facility] [address] [id number] [address]- 3259 11 Nov, 2013 [facility] [place] [facility] [address] [id number] [address]- 6591 07 Nov, 2013 [facility] [place] [facility] [address] [id number] [address]- 5127 07 Nov, 2013 [facility] [place] [facility] [address] [id number] [address]- 2671 07 Nov, 2013 [facility] [place] [facility] [address] [id number], [place] [address]- 9824 07 Nov, 2013 [facility] [place] [facility] [address] [id number] [address]- 9945 30 Oct, 2013 [facility] [place] [facility] [address] [id number] [address]- 0137 30 Oct, 2013 [facility] [place] [facility] [address] [id number] [place] [address] 2546 26 Oct, 2013 [facility] [place] [facility] [address] [id number] [place] [address]- 8756 26 Oct, 2013 [facility] [place] [facility] [address] [id number] [place] [address]- 7410 22 Oct, 2013 [facility] [place] [facility] [address] [id number] [place] [address]- 7799 22 Oct, 2013 [facility] [place] [facility] [address] [id number] [place] [address]- 6535 18 Oct, 2013 [facility] [place] [facility] [address] [id number] [place] [address]- 0892 18 Oct, 2013 [facility] [place] [facility] [address] [id number] [place] [address]- 1412 Oct, 2013 [facility] [place] [facility] [address] [id number] [place] [address]- 0693 18 Oct, 2013 [facility] [place] [facility] [address] [id number] [place] [address]- 8857 12 Oct, 2013 [facility] [place] [facility] [address] [id number] [place] [address]- 5514 Oct, 2013 [facility] [place] [facility] [address] [id number] [place] [address]- 4477 Oct, 2013 [facility] [place] [facility] [address] [id number] [place] [address]- 2542 Oct, 2013 [facility] [place] [facility] [address] [id number] [place] [address]- 7275 Sep, [facility] [place] [facility] [address] [id number] [place] [address]- 2639 Sep, [facility] [place] [facility] [address] [id number] [place] [address]- 1553 Sep, [facility] [place] [facility] [address] [id number] [place] [address]- 2925 Sep, [facility] [place] [facility] [address] [id number] [place] [address]- 4868 Sep, [facility] [place] [facility] [address] [id number] [place] [address]- 4620 Sep, [facility] [place] [facility] [address] [id number] [place] [address]- 5494 Sep, [facility] [place] [facility] [address] [id number] [place] [address]- 5330 Sep, [facility] [place] [facility] [address] [id number] [place] [address]- 9432 Sep, [facility] [place] [facility] [address] [id number] [place] [address]- 4325 Sep, [facility] [place] [facility] [address] [id number] [place] [address]- 5030 Sep, [facility] [place] [facility] [address] [id number] [place] [address]- 2320 Sep, [facility] [place] [facility] [address] [id number] [place] [address]- 1556 Sep, [facility] [place] [facility] [address] [id number] [place] [address]- 3942 Sep, [facility] [place] [facility] [address] [id number] [place] [address]- 1815 Sep, [facility] [place] [facility] [address] [id number] [place] [address]- 5651 Sep, [facility] [place] [facility] [address] [id number] [place] [address]- 0572 Sep, [facility] [place] [facility] [address] [id number] [place] [address]- 0030 Sep, [facility] [place] [facility] [address] [id number] [place] [address]- 8623 Aug, [facility] [place] [facility] [address] [id number] [place] [address]- 3510 Aug, [facility] [place] [facility] [address] [id number] [place] [address]- 5250 Aug, [facility] [place] [facility] [address] [id number] [place] [address]- 8788 Aug, [facility] [place] [facility] [address] [id number] [place] [address]- 2564 Aug, [facility] [place] [facility] [address] [id number] [place] [address]- 8526 Aug, [facility] [place] [facility] [address] [id number] [place] [address]- 8238 Jul, [facility] [place] [facility] [address] [id number] [place] [address]- 6363 Jul, [facility] [place] [facility] [address] [id number] [place] [address]- 4973 Jul, [facility] [place] [facility] [address] [id number] [place] [address]- 0853 Jul, [facility] [place] [facility] [address] [id number] [place] [address]- 3541 June, [facility] [place] [facility] [address] [id number] [place] [address]- 8927 June, [facility] [place] [facility] [address] [id number] [place] [address]- 1005 June, [facility] [place] [facility] [address] [id number] [place] [address]- 3502 June, [facility] [place] [facility] [address] [id number] [place] [address]- 2209 June, [facility] [place] [facility] [address] [id number] [place] [address]- 6433 June, [facility] [place] [facility] [address] [id number] [place] [address]- 7917 June, [facility] [place] [facility] [address] [id number] [place] [address]- 1823 29 May, 2013 [facility] [place] [facility] [address] [id number] [place] [address]- 8382 29 May, 2013 [facility] [place] [facility] [address] [id number] [place] [address]- 3027 May, [facility] [place] [facility] [address] [id number] [place] [address]- 3408 May, [facility] [place] [facility] [address] [id number] [place] [address]- 3594 May, [facility] [place] [facility] [address] [id number] [place] [address]- 4977 May, [facility] [place] [facility] [address] [id number] [place] [address]- 8861 31 Apr, 2013 [facility] [place] [facility] [address] [id number] [place] [address]- 3720 31 Apr, 2013 [facility] [place] [facility] [address] [id number] [place] [address]- 2445 28 Apr, 2013 [facility] [place] [facility] [address] [id number] [place] [address]- 0582 28 Apr, 2013 [facility] [place] [facility] [address] [id number] [place] [address]- 6401 14 Apr, 2013 [facility] [place] [facility] [address] [id number] [place] [address]- 3702 14 Apr, 2013 [facility] [place] [facility] [address] [id number] [place] [address]- 5353 12 Apr, 2013 [facility] [place] [facility] [address] [id number] [place] [address]- 5231 12 Apr, 2013 [facility] [place] [facility] [address] [id number] [place] [address]- 8686 10 Apr, 2013 [facility] [place] [facility] [address] [id number] [place] [address]- 8233 Apr, [facility] [place] [facility] [address] [id number] [place] [address]- 2812 Apr, [facility] [place] [facility] [address] [id number] [place] [address]- 2515 Apr, [facility] [place] [facility] [address] [id number] [place] [address]- 9345 Apr, [facility] [place] [facility] [address] [id number] [place] [address]- 4652 Apr, [facility] [place] [facility] [address] [id number] [place] [address]- 0449 Mar, [facility] [place] [facility] [address] [id number] [place] [address]- 8017 Mar, [facility] [place] [facility] [address] [id number] [place] [address]- 2249 Mar, [facility] [place] [facility] [address] [id number] [place] [address]- 4389 Feb, [facility] [place] [facility] [address] [id number] [place] [address]- 8745 Feb, [facility] [place] [facility] [address] [id number] [place] [address]- 6903 Feb, [facility] [place] [facility] [address] [id number] [place] [address]- 4174 Feb, [facility] [place] [facility] [address] [id number] [place] [address]- 5405 Feb, [facility] [place] [facility] [address] [id number] [place] [address]- 4184 Feb, [facility] [place] [facility] [address] [id number] [place] [address]- 7089 Feb, [facility] [place] [facility] [address] [id number], [place] [address]- 5189 Feb, [facility] [address] [id number] [place] [address]- 9001 Feb, [facility] [address] [id number] [place] [address]- 8501 Feb, [facility] [address] [id number] [place] [address]- 3405 Jan, [facility] [address] [id number] [place] [address]- 6403 Jan, [facility] [address] [id number] [place] [address]- 0102 Jan, [facility] [address] [id number] [place] [address]- 4559 Jan, [facility] [address] [id number] [place] [address]- 7666 Jan, [facility] [address] [id number] [place] [address]- 1749 Jan, [facility] [address] [id number] [place] [address]- 3362 Jan, [facility] [address] [id number] [place] [address]- 2146 Jan, [facility] [address] [id number] [place] [address]- 9561 Jan, [facility] [place] [facility] [address] [id number] [place] [address]- 0020 19 Jan, 2013 [facility] [place] [facility] [address] [id number] [place] [address]- 4361 17 Jan, 2013 [facility] [place] [facility] [address] [id number] [place] [address]- 6841 17 Jan, 2013 [facility] [place] [facility] [address] [id number] [place] 8877 16 Jan, 2013 [facility] [place] [facility] [address] [id number] [place] [address]- 7622 Jan, [facility] [address] [id number] [place] [address]- 4855 Jan, [facility] [place] [facility] [address] [id number] [place] [address]- 8378 Jan, [facility] [address] [id number] [place] [address]- 9258 Jan, [facility] [place] [facility] [address] [id number] [place] [address]- 5781 Jan, [facility] [address] [id number] [place] [address]- 8594 Jan, [facility] [address] [id number] [place] [address] Jan, [facility] [address] [id number] [place] [address] Jan, [facility] [address] [id number] [place] [address] Dec, [facility] [place] [facility] [address] [id number] [place] [address] Dec, [facility] [address] [id number] [place] [address] Dec, [facility] [place] [facility] [address] [id number] [place] [address] Dec, [facility] [place] [facility] [address] [id number] [place] [address] Dec, [facility] [place] [facility] [address] [id number] [place] [address] Dec, [facility] [place] [facility] [address] [id number] [place] [address] Dec, [facility] [place] [facility] [address] [id number] [place] [address] Dec, [facility] [place] [facility] [address] [id number] [place] [address] Dec, [facility] [place] [facility] [address] [id number] [place] [address] 47[address] Dec, [facility] [place] [facility] [address] [id number] [place] [address] Nov, [facility] [place] [facility] [address] [id number] [place] [address] Nov, [facility] [place] [facility] [address] [id number] [place] [address] Nov, [facility] [place] [facility] [address] [id number] [place] [address]- [address] Nov, [facility] [place] [facility] [address] [id number] [place] [address] Nov, [facility] [place] [facility] [address] [id number] [address] Nov, [facility] [place] [facility] [address] [id number] [place] [address]- [address] Nov, [facility] [place] [facility] [address] [id number], [place] [address] Nov, [facility] [place] [facility] [address] [id number], [place] [address] Nov, [facility] [place] [facility] [address] [id number], [place] [address] Nov, [facility] [place] [facility] [address] [id number] [place] [address] Oct, [facility] [place] [facility] [address] [id number] [address] Oct, [facility] [place] [facility] [address] [id number] [place] [address] Oct, [facility] [place] [facility] [address] [id number] [place] [address] Oct, [facility] [address] [id number] [place] [address]- [address]181 Oct, [facility] [place] [facility] [address] [id number] [place] [address] Sep, [facility] [place] [facility] [address] [id number] [place] [address] Sep, [facility] [place] [facility] [address] [id number] [place] [address]35 Aug, [facility] [place] [facility] [address] [id number] [place] [address] Aug, [facility] [place] [facility] [address] [id number] [place] [address] Aug, [facility] [address] [id number] [place] [address] 30[address] Aug, [facility] [place] [facility] [address] [id number] [place] [address]- 67[address] Aug, [facility] [place] [facility] [address] [id number] [place] [address]183 Aug, [facility] [place] [facility] [address] [id number] [place] [address] Aug, [facility] [place] [facility] [address] [id number] [place] [address] Jul, [facility] [place] [facility] [address] [id number] [place] [address]- 25[address] Jul, [facility] [place] [facility] [address] [id number] [place] [address] June, [facility] [place] [facility] [address] [id number] [place] [address] June, [facility] [place] [facility] [address] [id number] [place] [address] June, [facility] [place] [facility] [address] [id number] [place] [address]- [address] June, [facility] [address] [id number] [place] [address]- [address] June, [facility] [address] [id number] [place] [address]- [address] June, [facility] [address] [id number] [place] [address] June, [facility] [address] [id number] [place] [address] June, [facility] [address] [id number] [place] [address] June, [facility] [address] [id number] [place] [address] June, [facility] [address] [id number] [place] [address] June, [facility] [address] [id number] [place] [address]- [address] May, [facility] [address] [id number] [place] [address]- 4671 May, [facility] [address] [id number] [place] [address]- [address] May, [facility] [address] [id number] [place] [address]- 6099 May, [facility] [address] [id number] [place] [address]- 44[address] Apr, [facility] [place] [facility] [address] [id number] [place] [address]- 2844 Apr, [facility] [address] [id number] [place] [address]- [address] Apr, [facility] [address] [id number] [place] [address]- 9670 Mar, [facility] [address] [id number] [place] [address]- 5799 Mar, [facility] [address] [id number] [place] [address]- [address]276 Feb, [facility] [address] [id number] [place] [address] Feb, [facility] [place] [facility] [address] [id number] [place] [address] Feb, [facility] [address] [id number] [place] [address] Feb, [facility] [address] [id number] [place] [address] Feb, [facility] [address] [id number] [place] [address] 69[address] Feb, [facility] [address] [id number] [place] [address] 0915 Feb, [facility] [address] [id number] [place] [address]- 12[address] Jan, [facility] [address] [id number] [place] [address] 164[address] Jan, [facility] [address] [id number] [place] [address] 9[address] Jan, [facility] [place] [facility] [address] [id number] [place] [address] 135[address] Jan, [facility] [place] [facility] [address] [id number] [place] [address] 7[address] Jan, [facility] [place] [facility] [address] [id number] [place] [address] 9689 Jan, [facility] [place] [facility] [address] [id number] [place] [address] 8480 Jan, [facility] [place] [facility] [address] [id number] [place] [address] 67[address] 10 Jan, 2012 [facility] [place] [facility] [address] [id number] [place] [address] 85[address] Jan, [facility] [place] [facility] [address] [id number] [place] [address] 1236 Jan, [facility] [address] [id number] [place] [address] 5663 Jan, [facility] [place] [facility] [address] [id number] [place] [address] 4365 Dec, [facility] [place] [facility] [address] [id number] [place] [address] 5[address] Dec, [facility] [place] [facility] [address] [id number] [place] [address] 29[address] Dec, [facility] [place] [facility] [address] [id number] [place] [address] Dec, [facility] [address] [id number] [place] [address] 9769 Nov, [facility] [place] [facility] [address] [id number] [place] [address] 27[address] Nov, [facility] [address] [id number] [place] [address] 2072 08 Nov, 2011 [facility] [place] [facility] [address] [id number] [place] [address] 7[address] 27 Oct, 2011 [facility] [place] [facility] [address] [id number] [place] [address] 8443 24 Sep2011 [facility] [place] [facility] [address] [id number] [place] [address] 1945 21 Oct, 2011 [facility] [place] [facility] [address] [id number] [place] [address] 4167 10 Oct, 2011 [facility] [place] [facility] [address] [id number] [place] [address] 9631 Oct, [facility] [place] [facility] [address] [id number] [place] [address] 5945 Oct, [facility] [place] [facility] [address] [id number] [place] [address] 4590 Oct, [facility] [place] [facility] [address] [id number] [place] [address] 0367 Sep, [facility] [place] [facility] [address] [id number] [place] [address] 2268 Sep, [facility] [place] [facility] [address] [id number] [place] [address] 4392 Sep, [facility] [place] [facility] [address] [id number] [place] [address]- 6248 Sep, [facility] [place] [facility] [address] [id number] [place] [address] Sep, [facility] [place] [facility] [address] [id number] [place] [address] 8688 Aug, [facility] [place] [facility] [address] [id number] [place] [address] 7815 Aug, [facility] [place] [facility] [address] [id number] [place] [address] 7[address] Aug, [facility] [place] [facility] [address] [id number] [place] [address] 6976 16 Aug, 2011 [facility] [place] [facility] [address] [id number] [place] [address] 2904 Aug, [facility] [place] [facility] [address] [id number] [place] [address] 1209 Aug, [facility] [place] [facility] [address] [id number] [place] [address] 5474 Aug, [facility] [place] [facility] [address] [id number] [place] [address] 7710 Jul, [facility] [place] [facility] [address] [id number] [place] [address]- 1081 Jul, [facility] [place] [facility] [address] [id number] [place] [address] 2503 Jul, [facility] [place] [facility] [address] [id number] [place] [address] 2324 Jul, [facility] [place] [facility] [address] [id number] [place] [address] 2831 Jul, [facility] [place] [facility] [address] [id number] [place] [address] 7069 Jul, [facility] [place] [facility] [address] [id number] [place] [address]- [address] 07 Jul, 2011 [facility] [place] [facility] [address] [id number] [place] [address]- 0690 06 Jul, 2011 [facility] [place] [facility] [address] [id number] [place] [address]- 9285 05 Jul, 2011 [facility] [place] [facility] [address] [id number] [place] [address] 5970 June, [facility] [place] [facility] [address] [id number] [place] [address] 1884 June, [facility] [place] [facility] [address] [facility] [id number] [place] [address] 1363 June, [facility] [place] [facility] [address] [id number] [place] [address] 5735 June, [facility] [place] [facility] [address] [id number] [place] [address] 1219 June, [facility] [place] [facility] [address] [id number] [place] [address] 1646 June, [facility] [place] [facility] [address] [id number] [place] [address] 4389 June, [facility] [place] [facility] [address] [facility] [id number] [place] [address] 7167 June, [facility] [place] [facility] [address] [id number] [place] [address] 6206 May, [facility] [place] [facility] [address] [id number] [place] [address] 3206 23 May, 2011 [facility] [place] [facility] [address] [id number] [place] [address] 8376 May, [facility] [place] [facility] [address] [id number] [place] [address]- 4696 May, [facility] [place] [facility] [address] [id number] [place] [address] 2546 May, [facility] [place] [facility] [address] [id number] [place] [address] 2626 May, [facility] [place] [facility] [address] [id number] [place] [address]- 8522 May, [facility] [place] [facility] [address] [id number] [place] [address]- 0655 Apr, [facility] [place] [facility] [address] [id number] [place] [address] 1114 Apr, [facility] [place] [facility] [address] [id number] [place] [address]- 5817 Apr, [facility] [place] [facility] [address] [id number] [place] [address]- 6555 Apr, [facility] [place] [facility] [address] [id number] [place] [address]- 5986 Apr, [facility] [place] [facility] [address] [id number] [place] [address]- 2795 Apr, [facility] [place] [facility] [address] [id number] [place] [address]- 3666 Apr, [facility] [place] [facility] [address] [id number] [place] [address]- 9096 Mar, [facility] [place] [facility] [address] [id number] [place] [address]- 0934 Mar, [facility] [address] [id number] [place] [address]- 9656 14 Mar, 2011 [facility] [place] [facility] [address] [id number] [place] [address]- 5676 Mar, [facility] [address] [facility] [id number] [place] [address]- 1686 Mar, [facility] [place] [facility] [address] [id number] [place] [address]- 4141 Mar, [facility] [address] [id number] [place] [address]- 4451 Mar, [facility] [address] [id number] [place] [address]- 5691 Feb, [facility] [address] [facility] [id number] [place] [address]- 9422 Feb, [facility] [place] [facility] [address] [id number] [place] [address]- 7849 Feb, [facility] [address] [facility] [id number] [place] [address]- 6846 Feb, [facility] [place] [facility] [address] [facility] [id number] [place] [address]- 1370 Feb, [facility] [address] [facility] [id number] [address] 6[address] Feb, [facility] [place] [facility] [address] [id number], [place] [address]- 4338 Feb, [facility] [place] [facility] [address] [id number] [place] [address]- 4525 Feb, [facility] [place] [facility] [address] [facility] [id number] [place] [address]- 2113 Feb, [facility] [place] [facility] [address] [facility] [id number] [place] [address]- 1056 Feb, [facility] [place] [facility] [address] [id number] [place] [address]- 7457 27 Jan, 2011 [facility] [place] [facility] [address] [id number] [place] [address]- 6546 Jan, [facility] [place] [facility] [address] [id number] [place] [address]326 Jan, [facility] [place] [facility] [address] [id number] [place] [address]- 9946 Jan, [facility] [place] [facility] [address] [id number] [place] [address]- 0368 Jan, [facility] [place] [facility] [address] [id number] [place] [address]- 1416 Jan, [facility] [place] [facility] [address] [id number] [place] [address]- 1648 15 Jan, 2011 [facility] [place] [facility] [address] [id number] [place] [address]- 7681 15 Jan, 2011 [facility] [place] [facility] [address] [id number] [place] [address]- 3720 Jan, [facility] [place] [facility] [address] [id number] [place] [address]- 5301 Jan, [facility] [place] [facility] [address] [id number] [place] [address]60 Jan, [facility] [place] [facility] [address] [id number] [place] [address]- 5294 17 Dec, 2010 [facility] [place] [facility] [address] [id number] [place] [address]- 3749 17 Dec, 2010 [facility] [place] [facility] [address] [id number] [place] [address]- 9096 17 Dec, 2010 [facility] [place] [facility] [address] [id number] [place] [address]- 9836 16 Dec, 2010 [facility] [place] [facility] [address] [id number] [place] [address]- 2522 14 Dec, 2010 [facility] [place] [facility] [address] [id number] [place] [address]- 9816 09 Dec, 2010 [facility] [place] [facility] [address] [id number] [place] [address]- 3122 08 Dec, 2010 [facility] [place] [facility] [address] [id number] [place] [address] Dec, [facility] [place] [facility] [address] [id number] [place] [address]- 9784 Dec, [facility] [place] [facility] [address] [id number] [place] [address]- 4517 Nov, [facility] [place] [facility] [address] [id number] [place] [address]- 4649 Nov, [facility] [place] [facility] [address] [id number] [place] [address]- 4093 Nov, [facility] [place] [facility] [address] [id number] [place] [address]- 5553 24 Nov, 2010 [facility] [place] [facility] [address] [id number] [place] [address]- 6245 24 Nov, 2010 [facility] [place] [facility] [address] [id number] [place] [address]- 6956 Nov, [facility] [place] [facility] [address] [id number], [place] [address]- 2491 Aug, [facility] [place] [facility] [address] [id number], [place] [address]- 7067 14 Feb, 2010 [facility] [place] [facility] [address] [id number] [place] [address]- 6352 14 Jan, 2010 [facility] [place] [facility] [address] [id number] [address]- 7788 06 Jan, 2010 [facility] [place] [facility] [address] [id number] [place] [address]- 0737 Jan, [facility] [place] [facility] [address] [id number] [address] 6676 Jan, [facility] [id number] [address] Jan, [facility] [id number] [address] Dec, [facility] [id number] [address]- 9772 Dec, [facility] [id number] [address]- 1380 Dec, [facility] [id number] [place] [address]- 8484 Dec, [facility] [id number] [address] Nov, [facility] [id number] [address]- 0788 Nov, [facility] [id number] [address]- 3467 Nov, IMMUNIZATIONS No Known Immunizations SOCIAL HISTORY Never Assessed REASON FOR VISIT Left Hip Pain PLAN OF CARE VITAL SIGNS MEDICATIONS Unknown [...]
--- OUTSIDE RECORDS SUMMARY | 2018-01-13 22:25 | XMS REPORT ---
Author Author WYATT SOTO [facility] eClinicalWorks Address Unknown Phone Unavailable Care Team Providers Care Meat Selector Name Role Phone WYATT SOTO CP Unavailable [...]
--- OUTSIDE RECORDS SUMMARY | 2018-01-13 22:25 | XMS REPORT ---
Author Author WYATT SOTO [facility] eClinicalWorks Address Unknown Phone Unavailable Care Team Providers Care Ocean Transportation Intermediary Name Role Phone WYATT SOTO CP Unavailable [...] Instructions Start Date End Date Status Dos[facility] [address]-31 1 MG Orally, intermediate 2 times a day Feb 02, 2015 1 tablet Results No Known Results Summary Purpose eClinicalWorks Submission
--- OUTSIDE RECORDS SUMMARY | 2018-01-13 22:25 | XMS REPORT ---
Author Author WYATT SOTO [facility] eClinical[employer] Address Unknown Phone Unavailable Care Team Providers Care Mechanical Planner Name Role Phone WYATT SOTO CP Unavailable [...]
--- OUTSIDE RECORDS SUMMARY | 2018-01-13 22:25 | XMS REPORT ---
Author Author WYATT SOTO Organization [employer] Address Unknown Phone Unavailable Care Team Providers Care Finishing Supervisor Name Role Phone WYATT SOTO CP [...]
--- OUTSIDE RECORDS SUMMARY | 2018-01-13 22:25 | XMS REPORT ---
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
--- OUTSIDE RECORDS SUMMARY | 2018-01-13 22:27 | XMS REPORT ---
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
--- OUTSIDE RECORDS SUMMARY | 2018-01-13 22:27 | XMS REPORT ---
Author Author WYATT SOTO [facility] eClinicalWorks Address Unknown Phone Unavailable Care Team Providers Care Sheet Metal Contractor Name Role Phone WYATT SOTO CP Unavailable Allergies, Adverse Reactions, Alerts Substance Reaction Event Type N.K.D.A. 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 Problem Insomnia, unspecified 780.52 Active Problem Closed fracture of unspecified phalanx or phalanges of hand 816.00 Active Medications Medication Code System Code Instructions Start Date End Date Status Dosage Percocet [facility] [address]-37 5-325 MG every 6 hrs Apr 07, 2014 1 tablet as needed Lyrica [facility] [address]-84 100 MG Orally Three times a day 1 capsule Flexeril ND 0 10 mg Mar 22, 2014 take 1 tablet (10 mg) by oral route 3 times per day PRN take prn muscle spasm Sumatriptan Succinate ND 74288917138 100 MG Orally Once a day 1 tablet as needed one time Amlodipine Besylate [facility] 85384134600 5 MG TAKE ONE TABLET BY MOUTH DAILY Furosemide [facility] 05679903782 20 MG TAKE ONE TABLET BY MOUTH DAILY NEEDED Procedures Procedure Coding System Code Date Office Visit, Est Pt., Level 2 CPT-4 94663 Sep 19, 2014 Vital Signs Date/Time: Sep 19, 2014 Temperature 97.9 F Weight 153 lbs Height 68 in BMI 23.26 Index Blood Pressure Diastolic 76 mmHg Blood Pressure Systolic 102 mmHg Cardiac Monitoring Heart Rate 78 bpm Results No Known Results Summary Purpose eClinicalWorks Submission
--- OUTSIDE RECORDS SUMMARY | 2018-01-13 22:27 | XMS REPORT ---
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 Active 72505930 Problem Unspecified episodic mood disorder F39 Active 29445722 Problem Hypertension I10 Active 73938653 Problem Venous insufficiency (chronic) (peripheral) I87.2 Active 658571420 Problem Gastroesophageal reflux disease, esophagitis presence not specified K21.9 Active 133969983 Problem Other chronic pain G89.29 Active 09907673 Problem Chronic hepatitis C without hepatic coma B18.2 Active 855535447 Problem Other psychoactive substance dependence, uncomplicated F19.20 Active 9063490 Problem 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, 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 132307500 ALLERGIES No Information ENCOUNTERS Encounter Location Date Diagnosis [facility] [id number] [place] [address] 70368- 0454 May, Arthritis M19.90 [facility] [id number] [place] [address] 80580 -1104 May, Dysuria R30.0 ; Abscess L02.91 and Acute cystitis without hematuria N30.00 [facility] [id number] [place] [address] 02027- 6045 May, 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 ; Unspecified episodic mood disorder F39 ; Combined drug dependence excluding opioids, 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 ; Anxiety F41.9 and Other psychoactive substance dependence, uncomplicated F19.20 [facility] [id number] [place] [address] 55165- 7771 May, [facility] [id number] [place] [address] 04930- 1335 May, 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 ; Unspecified episodic mood disorder F39 ; Combined drug dependence excluding opioids, 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 ; Other psychoactive substance dependence, uncomplicated F19.20 and Anxiety F41.9 [facility] [id number] [place] [address] 61800- 2591 May, Other chronic pain G89.29 ; Left hip pain M25.552 ; Hypertension I10 ; 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, 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 and Unspecified episodic mood disorder F39 [facility] [id number] [place] [address] 45492- 6313 Apr, [facility] [id number] [place] [address] 04446 -7509 Apr, Neck pain M54.2 ; Left hip pain M25.552 and Fall, initial encounter W19.XXXA [facility] [id number] [place] [address] 82333- 2935 Apr, Unspecified episodic mood disorder F39 ; Combined drug dependence excluding opioids, 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 ; Anxiety F41.9 ; Other psychoactive substance dependence, uncomplicated F19.20 and Other disorder of impulse control F63.89 [facility] [id number] [place] [address] 08686- 6505 Apr, [facility] [id number] [place] [address] 68480- 5523 Apr, Arthritis M19.90 and Unspecified episodic mood disorder F39 [facility] [id number] [place] [address] 14670- 8745 Apr, Unspecified episodic mood disorder F39 [facility] [address] [place] [address]- 2272 13 Apr, 2017 [facility] [id number] [place] [address] 17713- 0984 Apr, [facility] [id number] [place] [address] 35838- 4880 Apr, Unspecified episodic mood disorder F39 ; Combined drug dependence excluding opioids, 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 ; Anxiety F41.9 ; Other psychoactive substance dependence, uncomplicated F19.20 and Other disorder of impulse control F63.89 [facility] [id number] [place] [address] 62638- 3717 Mar, Unspecified episodic mood disorder F39 [facility] [id number] [place] [address] 06760- 1674 Mar, Gastroesophageal reflux disease, esophagitis presence not specified K21.9 [facility] [address] 57372- 1329 Mar, Arthritis M19.90 and Unspecified episodic mood disorder F39 [facility] [id number] [place] [address] 81632- 4269 Feb, [facility] [id number] [place] [address] 19958- 6782 Feb, [facility] [id number] [place] [address] 59803- 5725 Feb, [facility] [id number] [place] [address] 71223- 6672 Feb, Arthritis M19.90 [facility] [id number] [place] [address] 65705- 0690 Feb, Non-pressure chronic ulcer of right calf, 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 [facility] [id number] [place] [address] 85721- 4381 Jan, Chronic hepatitis C without hepatic coma B18.2 [facility] [id number] [place] [address] 22185- 0518 Jan, Encounter for immunization Z23 ; Venous insufficiency ( chronic) (peripheral) I87.2 ; Non-pressure chronic ulcer of unspecified calf limited to breakdown of skin L97.201 and Gastroesophageal reflux disease, esophagitis presence not specified K21.9 [facility] [id number] [place] [address] 91566- 5119 Jan, [facility] [id number] [place] [address] 75743- 4969 Jan, Chronic hepatitis C without hepatic coma B18.2 and Encounter for immunization Z23 [facility] [id number] [place] [address] 75476- 7582 Jan, Arthritis M19.90 [facility] [address] [address]- 4606 Jan, [facility] [id number] [place] [address] 06012- 5646 Dec, [facility] [id number] [place] [address] 53459- 6201 Dec, Unspecified episodic mood disorder F39 [facility] [id number] [place] [address] 52962- 9290 Dec, Arthritis M19.90 [facility] [address] [address]- 0068 Dec, Arthritis M19.90 [facility] [id number] [place] [address] 40351- 1525 Nov, [facility] [id number] [place] [address] 57713- 3066 Nov, [facility] [id number] [place] [address] 31163- 1300 Nov, Other psychoactive substance dependence, uncomplicated F19.20 ; 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, 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 and Chronic hepatitis C without hepatic coma B18.2 [facility] [address] [place] [address] 68996- 1680 Nov, Arthritis M19.90 [facility] [id number] [place] [address] 94691 -2006 Oct, Partial thickness burn of abdomen, initial encounter T21.22XA [facility] [id number] [place] [address] 32010- 4127 Oct, [facility] [id number] [place] [address] 87340- 3096 Sep, Arthritis M19.90 [facility] [address] [place] [address] 61412- 3104 Sep, [facility] [id number] [place] [address] 79990- 4634 Sep, [facility] [id number] [place] [address] 44882- 3793 Sep, Unspecified episodic mood disorder F39 ; Chronic hepatitis C without hepatic coma B18.2 and Left hip pain M25.552 [facility] [address] [place] [address] 84349- 9591 Sep, Arthritis M19.90 and Left hip pain M25.552 [facility] [address] [address]- 2425 Aug, [facility] [id number] [place] [address] 69144- 2966 Aug, [facility] [address] [place] [address] 40370- 0742 Aug, Chronic hepatitis C without hepatic coma B18.2 [facility] [id number] [place] [address] 30245- 8800 Aug, [facility] [id number] [place] [address] 78498- 5250 Aug, Chronic hepatitis C without hepatic coma B18.2 [facility] [id number] [place] [address] 27151- 6895 Aug, 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, 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 [facility] [id number] [place] [address] 66067- 6488 Aug, [facility] [id number] [place] [address] 23054- 5798 Aug, Chronic hepatitis C without hepatic coma B18.2 and Hypertension I10 [facility] [address] [address]- 6721 Jul, [facility] [id number] [place] [address] 38444- 1780 June, [facility] [id number] [place] [address] 14599- 1673 Apr, Fibromyalgia M79.7 ; Left hip pain M25.552 and Decubitus ulcer of sacral region, stage 1 L89.151 [facility] [address] [address]- 8030 Apr, [facility] [id number] [place] [address] 53995- 8776 Apr, [facility] [id number] [place] [address] 47348- 6571 Feb, [facility] [id number] [place] [address] 48599- 2161 Dec, Anxiety F41.9 ; Combined drug dependence excluding opioids, 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 and Unspecified episodic mood disorder F39 [facility] [id number] [place] [address] 15822- 0943 Dec, [facility] [id number] [place] [address] 64045- 5170 Nov, [facility] [address] 04298- 8448 Nov, [facility] [id number] [place] [address] 84816- 3793 Nov, Other disorder of impulse control F63.89 and Anxiety F41.9 [facility] [id number] [place] [address] 41738- 8770 Oct, [facility] [id number] [place] [address] 88910 -2154 14 Oct, 2015 Open wound of left thigh, initial encounter S71.102A [facility] [id number] [place] [address] 72207- 5956 Oct, [facility] [id number] [place] [address] 37221- 7845 Sep, Unspecified episodic mood disorder F39 ; Other disorder of impulse control 312.39 ; Combined drug dependence excluding opioids, 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 and Anxiety F41.9 [facility] [id number] [place] [address] 92753- 5635 Sep, Other disorder of impulse control 312.39 ; Combined drug dependence excluding opioids, 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 ; Anxiety F41.9 and Unspecified episodic mood disorder F39 [facility] [id number] [place] [address] 92162- 7757 Sep, Other chronic pain G89.29 [facility] [address] [address]- 1050 Sep, [facility] [address] [address]- 2519 Sep, [facility] [address] [address]- 9598 Aug, [facility] [id number] [place] [address] 45137- 9484 Aug, [facility] [address] [address]- 2647 Aug, [facility] [id number] [place] [address] 23067- 9209 Jul, [facility] [id number] [place] [address] 31383- 4413 Jul, [facility] [id number] [place] [address] 01488- 2412 Jul, [facility] [id number] [place] [address] 90675- 0711 17 Jul, 2015 Arthritis M19.90 ; Chronic hepatitis C without hepatic coma B18.2 and Left hip pain M25.552 [facility] [address] [address]- 0075 Jul, Left knee pain M25.562 [facility] [id number] [place] [address] 80652- 9657 13 Jul, 2015 Combined drug dependence excluding opioids, 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 ; Anxiety F41.9 ; Other disorder of impulse control 312.39 and Unspecified episodic mood disorder F39 [facility] [address] [address]- 4175 13 Jul, 2015 Left knee pain M25.562 [facility] [address] [place] [address] 34875- 3930 Jul, Left knee pain M25.562 and Left hip pain M25.552 [facility] [address] [place] [address] 08914- 7974 Jul, [facility] [id number] [place] [address] 35059- 9106 June, [facility] [id number] [place] [address] 42692- 7464 June, Combinations of drug dependence excluding opioid type drug, unspecified abuse 304.80 ; Other disorder of impulse control 312.39 ; Unspecified episodic mood disorder F39 and Anxiety F41.9 [facility] [id number] [place] [address] 54616- 1949 June, Other fatigue R53.83 ; Headache R51 and Left knee pain M25.562 [facility] [id number] [place] [address] 82565- 4614 June, Unspecified episodic mood disorder F39 ; Combinations of drug dependence excluding opioid type drug, unspecified abuse 304.80 ; Other disorder of impulse control 312.39 and Anxiety F41.9 [facility] [id number] [place] [address] 18002- 5925 June, Anxiety F41.9 [facility] [id number] [place] [address] 30320- 8054 June, Pain in left knee M25.562 [facility] [id number] [place] [address] 61837- 6507 June, Anxiety F41.9 and Combinations of drug dependence excluding opioid type drug, unspecified abuse 304.80 [facility] [id number] [place] [address] 82876- 5692 June, Unspecified episodic mood disorder 296.90 ; Combinations of drug dependence excluding opioid type drug, unspecified abuse 304.80 and Other disorder of impulse control 312.39 [facility] [id number] [place] [address] 93471- 2288 June, Anxiety F41.9 and Unspecified episodic mood disorder 296.90 [facility] [address] [place] [address] 59916- 7177 May, Arthritis M19.90 [facility] [address] [place] [address] 26615- 2012 May, Arthritis M19.90 [facility] [id number] [place] [address] 01279- 3456 May, Anxiety F41.9 ; Combinations of drug dependence excluding opioid type drug, unspecified abuse 304.80 and Other disorder of impulse control 312.39 [facility] [id number] [place] [address] 83746- 9125 May, Left knee pain M25.562 [facility] [id number] [place] [address] 48719- 0811 May, Arthritis M19.90 [facility] [id number] [place] [address] 91520- 5522 May, [facility] [id number] [place] [address] 89971- 0150 May, Anxiety F41.9 ; Unspecified episodic mood disorder 296.90 ; Combinations of drug dependence excluding opioid type drug, unspecified abuse 304.80 and Other disorder of impulse control 312.39 [facility] [address] [place] [address] 12605- 4017 May, Left knee pain M25.562 [facility] [id number] [place] [address] 81584- 1341 May, Left knee pain M25.562 ; Combinations of drug dependence excluding opioid type drug, unspecified abuse 304.80 ; Other disorder of impulse control 312.39 ; Fibromyalgia M79.7 ; Hypertension I10 ; Unspecified episodic mood disorder 296.90 and Left hip pain M25.552 [facility] [address] [place] [address] 21079- 1686 May, Unspecified episodic mood disorder 296.90 ; Other disorder of impulse control 312.39 ; Combinations of drug dependence excluding opioid type drug, unspecified abuse 304.80 and Anxiety F41.9 [facility] [address] [place] [address] 02511- 2182 May, Left knee pain M25.562 ; Combinations of drug dependence excluding opioid type drug, unspecified abuse 304.80 ; Other disorder of impulse control 312.39 ; Fibromyalgia M79.7 ; Hypertension I10 ; Unspecified episodic mood disorder 296.90 and Left hip pain M25.552 [facility] [id number] [place] [address] 97983- 5356 May, Anxiety F41.9 ; Unspecified episodic mood disorder 296.90 ; Other disorder of impulse control 312.39 and Combinations of drug dependence excluding opioid type drug, unspecified abuse 304.80 [facility] [id number] [place] [address] 47564- 6077 Apr, 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 and 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, implants and grafts, initial encounter T84.82XA [facility] [id number] [place] [address] 98789- 4462 Apr, Anxiety F41.9 ; Unspecified episodic mood disorder 296.90 ; Combinations of drug dependence excluding opioid type drug, unspecified abuse 304.80 and Other disorder of impulse control 312.39 [facility] [address] [place] [address] 39428- 3378 Apr, Arthritis M19.90 [facility] [id number] [place] [address] 79871- 2978 Apr, Anxiety F41.9 ; Unspecified episodic mood disorder 296.90 ; Combinations of drug dependence excluding opioid type drug, unspecified abuse 304.80 and Other disorder of impulse control 312.39 [facility] [address] [place] [address] 07531- 0296 Apr, Arthritis M19.90 [facility] [id number] [place] [address] 35994- 2424 Apr, [facility] [id number] [place] [address] 60156- 2641 Apr, [facility] [id number] [place] [address]- 6531 Apr, Unspecified episodic mood disorder 296.90 ; Combinations of drug dependence excluding opioid type drug, unspecified abuse 304.80 ; Other disorder of impulse control 312.39 and Anxiety F41.9 [facility] [id number] [place] [address] 42661 -5695 Apr, Left knee pain M25.562 [facility] [id number] [place] [address] 79740- 8738 Apr, [facility] [id number] [place] [address] 80384- 4091 Mar, Unspecified episodic mood disorder 296.90 ; Anxiety F41.9 ; Other disorder of impulse control 312.39 and Combinations of drug dependence excluding opioid type drug, unspecified abuse 304.80 [facility] [id number] [place] [address] 61667- 2573 Mar, Hyperpigmentation L81.9 [facility] [id number] [place] [address] 88074- 7997 Mar, Arthritis M19.90 and Anxiety F41.9 [facility] [id number] [place] [address] 01662- 6668 Mar, Unspecified episodic mood disorder F39 ; Combined drug dependence excluding opioids, 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 ; Other disorder of impulse control F63.89 and Anxiety F41.9 [facility] [id number] [place] [address] 23477- 2562 12 Mar, 2015 Well woman exam Z01.419 ; Other fatigue R53.83 ; Hot flashes N95.1 ; Depression, unspecified depression type F32.9 and Body mass index (BMI) of 23.0-23.9 in adult Z68.23 [facility] [id number] [place] [address] 68897- 8867 11 Mar, 2015 Unspecified episodic mood disorder 296.90 ; Other disorder of impulse control 312.39 and Anxiety F41.9 [facility] [address] 04071- 8436 11 Mar, 2015 Well woman exam Z01.419 [...] of breast Z12.39 and Limited mobility Z74.09 [facility] [address] 40200- 9808 10 Mar, 2015 [facility] [address] 26801- 1309 10 Mar, 2015 [facility] [address] 29429- 9374 08 Mar, 2015 [facility] [address] 95960- 2172 03 Mar, 2015 Other specified complication of internal orthopedic prosthetic devices, implants and grafts, initial encounter T84.89XA ; Fibromyalgia M79.7 ; Hypertension I10 ; Anemia D64.9 ; Insomnia G47.00 ; Anxiety F41.9 ; Arthritis M19.90 and Migraine G43.909 [facility] [id number] [place] [address] 44432- 1046 Mar, [facility] [address] [place] [address]- 1064 Feb, [facility] [id number] [address] Feb, Arthritis M19.90 and Anxiety F41.9 [facility] [id number] [place] [id number] 2541 Feb, [facility] [id number] [place] [id number] Feb, [facility] [id number] [place] [id number] Feb, [facility] [id number] [place] [phone]- [phone] Feb, [facility] [id number] [place] [phone]- [phone] Feb, Anxiety F41.9 [facility] [id number] [place] [phone] Feb, [facility] [id number] [place] [address] [phone] Feb, [facility] [id number] [place] [address] [phone]- [phone] Feb, 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 and Fibromyalgia M79.7 [facility] [id number] [address] Feb, [facility] [id number] [address] 2542 Jan, [facility] [id number] [place] [address] 66373- 1595 Jan, [facility] [id number] [address] 9043 Jan, [facility] [id number] [address] 5080 Jan, [facility] [id number] [address] 2269 16 Jan, 2015 [facility] [id number] [place] [address] 010948- 3291 Jan, [facility] [id number] 2616 Jan, [facility] [id number] [place] [address] 095817- 3972 Jan, [facility] [id number] [place] [address] 37862- 3196 Dec, [facility] [id number] [place] [address] 03966- 5214 Dec, Left knee pain M25.562 [facility] [id number] [place] [address] 67876- 4590 Dec, Left knee pain M25.562 [facility] [id number] [place] [address] 81782- 4503 Dec, Fibromyalgia M79.7 ; Hypertension I10 and Arthritis M19.90 [facility] [id number] [place] [address] 02661- 0260 Dec, [facility] [id number] [address]- 8077 Dec, [facility] [address] [address]- 5397 Dec, [facility] [address] [address]- 9208 Dec, [facility] [id number] [place] [address] 78875- 8989 Nov, [facility] [id number] [address]- 1005 19 Nov, 2014 [facility] [id number] [place] [address] 92551- 1269 Nov, [facility] [address] [id number] [address] 5430 Nov, Hypertension I10 [facility] [address] [id number] [address]- 3696 23 Oct, 2014 [facility] [place] [facility] [address] [facility] [id number] [place] [address] 2546 17 Oct, 2014 [facility] [address] [id number] [address] 2540 Oct, 2014 [facility] [address] [id number] [place] [address]- 1773 Oct, 2014 [facility] [place] [facility] [address] [facility] [id number] [place] [address] 2750 Oct, [facility] [address] [facility] [id number] [place] [address]- 0652 Sep, [facility] [address] [id number] [place] [address]- 4025 Sep, [facility] [address] [facility] [id number] [place] [address]- 1329 Sep, Hip pain associated with recalled total hip arthroplasty hardware 996.77 [facility] [address] [facility] [id number] [place] [address]- 6898 Sep, [facility] [place] [facility] [address] [facility] [id number] [place] [address]- 9727 Sep, [facility] [place] [facility] [address] [id number] [place] [address]- 2547 Sep, [facility] [place] [facility] [address] [facility] [id number] [place] [address]- 9707 Aug, [facility] [place] [facility] [address] [facility] [id number] [place] [address]- 5053 Jul, [facility] [place] [facility] [address] [facility] [id number] [place] [address]- 2321 June, [facility] [place] [facility] [address] [id number] [place] [address]- 2371 June, [facility] [place] [facility] [address] [id number] [place] [address]- 8981 June, [facility] [place] [facility] [address] [id number] [place] [address]- 3354 June, [facility] [place] [facility] [address] [id number] [place] [address]- 6961 June, [facility] [place] [facility] [address] [id number] [place] [address]- 9966 June, [facility] [place] [facility] [address] [id number] [place] [address]- 2857 May, [facility] [place] [facility] [address] [id number] [place] [address]- 0586 May, [facility] [place] [facility] [address] [id number] [place] [address]- 4585 May, [facility] [place] [facility] [address] [id number] [place] [address]- 7019 Apr, [facility] [place] [facility] [address] [id number] [place] [address]- 6649 Apr, [facility] [place] [facility] [address] [id number] [place] [address]- 6268 Apr, [facility] [place] [facility] [address] [id number] [place] [address]- 2615 Apr, [facility] [place] [facility] [address] [id number] [place] [address]- 8064 Apr, [facility] [place] [facility] [address] [id number] [place] [address]- 5650 Apr, [facility] [place] [facility] [address] [id number] [place] [address]- 8765 Apr, [facility] [place] [facility] [address] [id number] [place] [address]- 9217 Apr, [facility] [place] [facility] [address] [id number] [place] [address]- 7494 Apr, [facility] [place] [facility] [address] [id number] [place] [address]- 2164 Apr, [facility] [place] [facility] [address] [id number] [place] [address]- 5513 Apr, [facility] [place] [facility] [address] [id number] [place] [address]- 1465 Mar, [facility] [place] [facility] [address] [id number] [place] [address]- 5478 Mar, [facility] [place] [facility] [address] [id number] [place] [address]- 8827 Mar, [facility] [place] [facility] [address] [id number] [place] [address]- 7381 Mar, [facility] [place] [facility] [address] [id number] [place] [address]- 3677 Mar, [facility] [place] [facility] [address] [id number] [place] [address]- 0281 Mar, [facility] [place] [facility] [address] [id number] [place] [address]- 5280 Feb, [facility] [place] [facility] [address] [id number] [place] [address]- 6258 Feb, [facility] [place] [facility] [address] [id number] [place] [address]- 5483 Feb, [facility] [place] [facility] [address] [id number] [place] [address]- 0691 Feb, [facility] [place] [facility] [address] [id number] [place] [address]- 5759 Jan, [facility] [place] [facility] [address] [id number] [place] [address]- 6872 Jan, [facility] [place] [facility] [address] [id number] [place] [address]- 0028 Jan, [facility] [place] [facility] [address] [id number] [place] [address]- 8857 Jan, [facility] [place] [facility] [address] [id number] [place] [address]- 8156 Dec, [facility] [place] [facility] [address] [id number] [place] [address]- 3110 Dec, [facility] [place] [facility] [address] [id number] [place] [address]- 7698 Dec, [facility] [place] [facility] [address] [id number] [place] [address]- 1929 Dec, [facility] [place] [facility] [address] [id number] [place] [address]- 6060 Dec, [facility] [place] [facility] [address] [id number] [place] [address]- 1652 Dec, [facility] [place] [facility] [address] [id number] [place] [address]- 4137 Dec, [facility] [place] [facility] [address] [id number] [address]- 2479 Dec, [facility] [place] [facility] [address] [id number] [place] [address]- 7606 Dec, [facility] [place] [facility] [address] [id number] [place] [address]- 6417 Dec, [facility] [place] [facility] [address] [id number] [place] [address]- 9303 Dec, [facility] [place] [facility] [address] [id number] [place] [address]- 3309 Nov, [facility] [place] [facility] [address] [id number] [place] [address]- 5265 Nov, [facility] [place] [facility] [address] [id number] [place] [address]- 2441 28 Nov, 2013 [facility] [place] [facility] [address] [id number] [place] [address]- 5458 17 Nov, 2013 [facility] [place] [facility] [address] [id number] [place] [address]- 7696 17 Nov, 2013 [facility] [place] [facility] [address] [id number] [place] [address]- 8305 15 Nov, 2013 [facility] [place] [facility] [address] [id number] [place] [address]- 0336 15 Nov, 2013 [facility] [place] [facility] [address] [id number] [place] [address]- 6861 15 Nov, 2013 [facility] [place] [facility] [address] [id number] [place] [address]- 2050 15 Nov, 2013 [facility] [place] [facility] [address] [id number] [place] [address]- 6393 14 Nov, 2013 [facility] [place] [facility] [address] [id number] [place] [address]- 6776 14 Nov, 2013 [facility] [place] [facility] [address] [id number] [place] [address]- 2403 14 Nov, 2013 [facility] [place] [facility] [address] [id number] [place] [address]- 3199 14 Nov, 2013 [facility] [place] [facility] [address] [id number] [place] [address]- 3918 13 Nov, 2013 [facility] [place] [facility] [address] [id number] [place] [address]- 7636 13 Nov, 2013 [facility] [place] [facility] [address] [id number] [place] [address]- 5818 11 Nov, 2013 [facility] [place] [facility] [address] [id number] [place] [address]- 9411 11 Nov, 2013 [facility] [place] [facility] [address] [id number] [place] [address]- 0664 07 Nov, 2013 [facility] [place] [facility] [address] [id number] [place] [address]- 4888 07 Nov, 2013 [facility] [place] [facility] [address] [id number] [place] [address]- 0877 07 Nov, 2013 [facility] [place] [facility] [address] [id number] [place] [address]- 0256 07 Nov, 2013 [facility] [place] [facility] [address] [id number] [place] [address] 2546 30 Sep, 2013 [facility] [place] [facility] [address] [id number] [place] [address]- 2548 30 Sep, 2013 [facility] [place] [facility] [address] [id number] [place] [address]- 3817 26 Sep, 2013 [facility] [place] [facility] [address] [id number] [place] [address]- 9973 26 Oct, 2013 [facility] [place] [facility] [address] [id number] [place] [address]- 4365 22 Oct, 2013 [facility] [place] [facility] [address] [id number] [place] [address] 2541 22 Sep, 2013 [facility] [place] [facility] [address] [id number] [place] [address]- 2542 18 Sep, 2013 [facility] [place] [facility] [address] [id number] [place] [address]- 254 18 Sep, 2013 [facility] [place] [facility] [address] [id number] [place] [address]- 2544 18 Sep, 2013 [facility] [place] [facility] [address] [id number] [place] [address] 2545 18 Sep, 2013 [facility] [place] [facility] [address] [id number] [place] [address]- 2546 12 Sep, 2013 [facility] [place] [facility] [address] [id number] [place] [address]- 2546 12 Sep, 2013 [facility] [place] [facility] [address] [id number] [place] [address]- 2858 Oct, [facility] [place] [facility] [address] [id number] [place] [address]- 9586 Oct, [facility] [place] [facility] [address] [id number] [place] [address]- 7656 Sep, [facility] [place] [facility] [address] [id number] [place] [address]- 2973 Sep, [facility] [place] [facility] [address] [id number] [place] [address]- 6793 Sep, [facility] [place] [facility] [address] [id number] [place] [address]- 2101 Sep, [facility] [place] [facility] [address] [id number] [place] [address]- 8808 Sep, [facility] [place] [facility] [address] [id number] [place] [address]- 5848 Sep, [facility] [place] [facility] [address] [id number] [place] [address]- 8535 Sep, [facility] [place] [facility] [address] [id number] [place] [address]- 5489 Sep, [facility] [place] [facility] [address] [id number] [place] [address]- 4437 Sep, [facility] [place] [facility] [address] [id number] [place] [address]- 2079 Sep, [facility] [place] [facility] [address] [id number] [place] [address]- 8398 Sep, [facility] [place] [facility] [address] [id number] [place] [address]- 0007 Sep, [facility] [place] [facility] [address] [id number] [place] [address]- 1834 Sep, [facility] [place] [facility] [address] [id number] [place] [address]- 7822 Sep, [facility] [place] [facility] [address] [id number] [place] [address]- 4365 Sep, [facility] [place] [facility] [address] [id number] [place] [address]- 8064 Sep, [facility] [place] [facility] [address] [id number] [place] [address]- 6766 Sep, [facility] [place] [facility] [address] [id number] [place] [address]- 0787 Sep, [facility] [place] [facility] [address] [id number] [place] [address]- 1091 Aug, [facility] [place] [facility] [address] [id number] [place] [address]- 6272 Aug, [facility] [place] [facility] [address] [id number] [place] [address]- 7367 Aug, [facility] [place] [facility] [address] [id number] [place] [address]- 0590 Aug, [facility] [place] [facility] [address] [id number] [place] [address]- 6227 Aug, [facility] [place] [facility] [address] [id number] [place] [address]- 5573 Aug, [facility] [place] [facility] [address] [id number] [place] [address]- 1064 Jul, [facility] [place] [facility] [address] [id number] [place] [address]- 7202 Jul, [facility] [place] [facility] [address] [id number] [place] [address]- 5040 Jul, [facility] [place] [facility] [address] [id number] [place] [address]- 3889 Jul, [facility] [place] [facility] [address] [id number] [place] [address]- 1720 June, [facility] [place] [facility] [address] [id number] [place] 4649 June, [facility] [place] [facility] [address] [id number] [place] [address]- 9305 June, [facility] [place] [facility] [address] [id number] [place] [address]- 5235 June, [facility] [place] [facility] [address] [id number] [place] [address]- 2152 June, [facility] [place] [facility] [address] [id number] [place] [address]- 7480 June, [facility] [place] [facility] [address] [id number] [place] [address]- 9096 June, [facility] [place] [facility] [address] [id number] [place] [address]- 9240 May, [facility] [place] [facility] [address] [id number] [place] [address]- 6526 May, [facility] [place] [facility] [address] [id number] [place] [address]- 0775 May, [facility] [place] [facility] [address] [id number] [place] [address]- 0143 May, [facility] [place] [facility] [address] [id number] [place] [address]- 1739 May, [facility] [place] [facility] [address] [id number] [place] [address]- 9130 May, [facility] [place] [facility] [address] [id number] [place] [address]- 9768 Apr, [facility] [place] [facility] [address] [id number] [place] [address]- 7668 31 Apr, 2013 [facility] [place] [facility] [address] [id number] [place] [address]- 4025 28 Apr, 2013 [facility] [place] [facility] [address] [id number] [place] [address]- 0461 28 Apr, 2013 [facility] [place] [facility] [address] [id number] [place] [address]- 3300 14 Apr, 2013 [facility] [place] [facility] [address] [id number] [place] [address]- 1390 14 Apr, 2013 [facility] [place] [facility] [address] [id number] [place] [address]- 7621 Apr, [facility] [place] [facility] [address] [id number] [place] [address]- 9436 Apr, [facility] [place] [facility] [address] [id number] [place] [address]- 2417 Apr, [facility] [place] [facility] [address] [id number] [place] [address]- 0368 Apr, [facility] [place] [facility] [address] [id number] [place] [address]- 1595 Apr, [facility] [place] [facility] [address] [id number] [place] [address]- 6925 Apr, [facility] [place] [facility] [address] [id number] [place] [address]- 2573 Apr, [facility] [place] [facility] [address] [id number] [place] [address]- 0189 Apr, [facility] [place] [facility] [address] [id number] [place] [address]- 3419 Mar, [facility] [place] [facility] [address] [id number] [place] [address]- 0325 Mar, [facility] [place] [facility] [address] [id number] [place] [address]- 1104 Mar, [facility] [place] [facility] [address] [id number] [place] [address]- 5175 Feb, [facility] [place] [facility] [address] [id number] [place] 3557 Feb, [facility] [place] [facility] [address] [id number] [place] [address]- 7969 Feb, [facility] [place] [facility] [address] [id number] [place] [address]- 8486 Feb, [facility] [address] [id number] [place] [address]- 2252 Feb, [facility] [address] [id number] [place] [address]- 5036 Feb, [facility] [address] [id number] [place] [address]- 3034 Feb, [facility] [address] [id number] [place] [address]- 8156 Feb, [facility] [address] [id number] [place] [address]- 6493 Feb, [facility] [address] [id number] [place] [address]- 3684 Feb, [facility] [address] [id number] [place] [address]- 2121 Jan, [facility] [address] [id number] [place] [address]- 9592 Jan, [facility] [address] [id number] [place] [address]- 6119 Jan, [facility] [address] [id number] [place] [address]- 9550 Jan, [facility] [address] [id number] [place] [address]- 0146 Jan, [facility] [address] [id number] [place] [address] Jan, [facility] [place] [facility] [address] [id number] [place] [address] Jan, [facility] [place] [facility] [address] [id number] [place] [address] Jan, [facility] [place] [facility] [address] [id number] [place] [address] Jan, [facility] [address] [id number] [place] [address] Jan, [facility] [place] [facility] [address] [id number] [place] [address] Jan, [facility] [address] [id number] [place] [address] Jan, [facility] [place] [facility] [address] [id number] [place] [address]- [address] 16 Jan, 2013 [facility] [address] [id number] [place] [address] Jan, [facility] [place] [facility] [address] [id number] [place] [address] Jan, [facility] [place] [facility] [address] [facility] [id number] [place] [address] Jan, [facility] [place] [facility] [address] [id number] [place] [address] Jan, [facility] [place] [facility] [address] [id number] [place] [address]- [address] Jan, [facility] [place] [facility] [address] [id number] [place] [address]- [address] Jan, [facility] [place] [facility] [address] [id number] [place] [address] Jan, [facility] [place] [facility] [address] [id number] [place] [address] Jan, [facility] [place] [facility] [address] [id number] [place] [address] Dec, [facility] [place] [facility] [address] [id number] [place] [address]- [address] Dec, [facility] [place] [facility] [address] [facility] [id number] [place] [address] Dec, [facility] [place] [facility] [address] [id number] [place] [address] Dec, [facility] [place] [facility] [address] [id number] [place] [address] Dec, [facility] [place] [facility] [address] [id number] [place] [address]- [address] Dec, [facility] [place] [facility] [address] [id number] [place] [address]- [address]268 Dec, [facility] [place] [facility] [address] [id number] [place] [address] Dec, [facility] [place] [facility] [address] [id number] [place] [address]16 Dec, [facility] [place] [facility] [address] [id number] [place] [address] Dec, [facility] [place] [facility] [address] [id number] [place] [address] Nov, [facility] [place] [facility] [address] [id number] [place] [address]- 95[address] Nov, [facility] [place] [facility] [address] [id number] [place] [address] Nov, [facility] [place] [facility] [address] [id number] [place] [address] 18 Nov, 2012 [facility] [place] [facility] [address] [id number] [place] [address] Nov, [facility] [place] [facility] [address] [id number] [place] [address] Nov, [facility] [place] [facility] [address] [id number] [place] [address] Nov, [facility] [place] [facility] [address] [id number] [place] [address]- [address]65 11 Nov, 2012 [facility] [place] [facility] [address] [id number] [place] [address] 10 Nov, 2012 [facility] [place] [facility] [address] [id number] [place] [address] Nov, [facility] [place] [facility] [address] [id number] [place] [address]- [address]26 Oct, [facility] [place] [facility] [address] [id number] [place] [address] Oct, [facility] [place] [facility] [address] [id number] [place] [address] Oct, [facility] [place] [facility] [address] [id number] [place] [address] Oct, [facility] [place] [facility] [address] [id number] [place] [address] 8581 Oct, [facility] [place] [facility] [address] [id number] [place] [address]- 98[address] Sep, [facility] [place] [facility] [address] [id number] [place] [address]- 1112 Sep, [facility] [place] [facility] [address] [id number] [place] [address]- 6958 Aug, [facility] [place] [facility] [address] [id number] [place] [address] Aug, [facility] [place] [facility] [address] [id number] [place] [address]- [address]116 Aug, [facility] [place] [facility] [address] [id number] [place] [address]- 7933 Aug, [facility] [place] [facility] [address] [id number] [place] [address]162 Aug, [facility] [place] [facility] [address] [id number] [place] [address]- 9070 Aug, [facility] [place] [facility] [address] [id number] [place] [address]- [address]184 Aug, [facility] [place] [facility] [address] [id number] [place] [address] 79[address] Jul, [facility] [address] [id number] [place] [address] Jul, [facility] [address] [id number] [place] [address]- 9093 June, [facility] [address] [id number] [place] [address]- 7568 June, [facility] [address] [id number] [place] [address]- [address]593 June, [facility] [address] [id number] [place] [address]- 1526 June, [facility] [address] [id number] [place] [address]- 3716 June, [facility] [address] [id number] [place] [address]- 4174 June, [facility] [address] [id number] [place] [address]- 4186 June, [facility] [address] [id number] [place] [address]- 1748 June, [facility] [address] [id number] [place] [address] 3649 June, [facility] [address] [id number] [place] [address]- 6105 June, [facility] [place] [facility] [address] [id number] [place] [address]- 9634 June, [facility] [place] [facility] [address] [id number] [place] [address]- 3330 May, [facility] [place] [facility] [address] [id number] [place] [address]- 2869 May, [facility] [place] [facility] [address] [id number] [place] [address] May, [facility] [place] [facility] [address] [id number] [place] [address] 05 May, 2012 [facility] [address] [id number] [place] [address] Apr, [facility] [address] [id number] [place] [address] 5[address] Apr, [facility] [address] [id number] [place] [address] 1703 Apr, [facility] [address] [id number] [place] [address] 2797 Mar, [facility] [address] [id number] [place] [address] 7248 Mar, [facility] [address] [id number] [place] [address]239 Feb, [facility] [address] [id number] [place] [address] 6174 Feb, [facility] [address] [id number] [place] [address] 8676 Feb, [facility] [address] [id number] [place] [address] 8311 Feb, [facility] [address] [id number] [place] [address] 3436 16 Feb, 2012 [facility] [address] [id number] [place] [address] 7971 14 Feb, 2012 [facility] [address] [id number] [place] [address] 3201 Feb, [facility] [address] [id number] [place] [address] 54[address] Jan, [facility] [address] [id number] [place] [address] 5176 Jan, [facility] [address] [id number] [place] [address]- 4183 Jan, [facility] [place] [facility] [address] [id number] [place] [address] 1031 Jan, [facility] [place] [facility] [address] [id number] [place] [address] 2938 Jan, [facility] [place] [facility] [address] [id number] [place] [address] Jan, [facility] [place] [facility] [address] [id number] [place] [address] 0566 Jan, [facility] [place] [facility] [address] [id number] [place] [address] 1466 Jan, [facility] [place] [facility] [address] [id number] [place] [address]- 2161 Jan, [facility] [place] [facility] [address] [id number] [place] [address] 9014 Jan, [facility] [place] [facility] [address] [id number] [place] [address]- 6969 Jan, [facility] [place] [facility] [address] [id number] [place] [address]- 7694 Dec, [facility] [place] [facility] [address] [id number] [place] [address] 8[address] Dec, [facility] [place] [facility] [address] [id number] [place] [address] 2395 Dec, [facility] [place] [facility] [address] [id number] [place] [address] 8286 Dec, [facility] [place] [facility] [address] [id number] [place] [address] 2202 Nov, [facility] [place] [facility] [address] [id number] [place] [address] 7807 Nov, [facility] [place] [facility] [address] [facility] [id number] [place] [address] Nov, [facility] [place] [facility] [address] [id number] [place] [address] 4051 27 Oct, 2011 [facility] [place] [facility] [address] [id number] [place] [address] 5206 24 Oct, 2011 [facility] [place] [facility] [address] [id number] [place] [address] 8346 21 Oct, 2011 [facility] [place] [facility] [address] [id number] [place] [address]- 0346 10 Oct, 2011 [facility] [place] [facility] [address] [id number] [place] [address]- 6226 07 Oct, 2011 [facility] [place] [facility] [address] [id number] [place] [address]- 1326 04 Oct, 2011 [facility] [place] [facility] [address] [id number] [place] [address]- 2166 04 Oct, 2011 [facility] [place] [facility] [address] [id number] [place] [address] 8199 29 Sep, 2011 [facility] [place] [facility] [address] [id number] [place] [address] 2529 Sep, [facility] [place] [facility] [address] [id number] [place] [address]- 6932 23 Sep, 2011 [facility] [place] [facility] [address] [id number] [place] [address] 3094 13 Sep, 2011 [facility] [place] [facility] [address] [id number] [place] [address] 5930 Sep, [facility] [place] [facility] [address] [id number] [place] [address] 2540 30 Aug, 2011 [facility] [place] [facility] [address] [id number] [place] [address] 5432 26 Aug, 2011 [facility] [place] [facility] [address] [id number] [place] [address] 17 Aug, 2011 [facility] [place] [facility] [address] [id number] [place] [address]- 7593 16 Aug, 2011 [facility] [place] [facility] [address] [id number] [place] [address]- 8868 13 Aug, 2011 [facility] [place] [facility] [address] [id number] [place] [address] 3972 Aug, [facility] [place] [facility] [address] [id number] [place] [address] 2546 Aug, [facility] [place] [facility] [address] [id number] [place] [address] 6723 Jul, [facility] [place] [facility] [address] [id number] [place] [address] 9739 Jul, [facility] [place] [facility] [address] [id number] [place] [address] 2770 Jul, [facility] [place] [facility] [address] [id number] [place] [address]- 9728 Jul, [facility] [place] [facility] [address] [id number] [place] [address] 0723 Jul, [facility] [place] [facility] [address] [id number] [place] [address] 4306 Jul, [facility] [place] [facility] [address] [id number] [place] [address] 0842 Jul, [facility] [place] [facility] [address] [id number] [place] [address]- 2477 Jul, [facility] [place] [facility] [address] [id number] [place] [address] 9380 Jul, [facility] [place] [facility] [address] [id number] [place] [address] 6338 June, [facility] [place] [facility] [address] [id number] [place] [address]- 5977 June, [facility] [place] [facility] [address] [id number] [place] [address]- 7297 June, [facility] [place] [facility] [address] [id number] [place] [address]- 7490 June, [facility] [address] [id number] [place] [address]- 9134 June, [facility] [place] [facility] [address] [id number] [place] [address]- 6129 June, [facility] [address] [id number] [place] [address]- 8766 June, [facility] [place] [facility] [address] [id number] [place] [address]- 1826 June, [facility] [address] [id number] [place] [address]- 2542 May, [facility] [place] [facility] [address] [id number] [place] [address]- 3695 May, [facility] [place] [facility] [address] [id number] [place] [address]- 0071 May, [facility] [place] [facility] [address] [id number] [place] [address]- 3052 May, [facility] [place] [facility] [address] [id number] [place] [address]- 8867 May, [facility] [place] [facility] [address] [id number] [place] [address]- 5783 16 May, 2011 [facility] [place] [facility] [address] [id number] [place] [address]- 0944 May, [facility] [place] [facility] [address] [id number] [place] [address] 3128 27 Apr, 2011 [facility] [place] [facility] [address] [id number] [place] [address]- 4295 Apr, [facility] [place] [facility] [address] [id number] [place] [address]- 5032 Apr, [facility] [place] [facility] [address] [id number] [place] [address]- 9582 Apr, [facility] [place] [facility] [address] [id number] [place] [address]- 7195 Apr, [facility] [address] [id number] [place] [address]- 3196 Apr, [facility] [place] [facility] [address] [id number] [place] [address] 2546 Apr, [facility] [place] [facility] [address] [id number] [place] [address]- 9336 Mar, [facility] [place] [facility] [address] [id number] [place] [address] 2546 Mar, [facility] [place] [facility] [address] [id number] [place] [address]- 9036 14 Mar, 2011 [facility] [place] [facility] [address] [id number] [place] [address] 2546 13 Mar, 2011 [facility] [place] [facility] [address] [id number] [place] [address] 2546 Mar, [facility] [place] [facility] [address] [id number] [place] [address]- 0512 Mar, [facility] [place] [facility] [address] [id number] [place] [address]- 3336 Mar, [facility] [place] [facility] [address] [facility] [id number] [place] [address]- 6624 Feb, [facility] [place] [facility] [address] [id number] [place] [address]- 7166 Feb, [facility] [place] [facility] [address] [id number] [place] [address] 2546 Feb, [facility] [place] [facility] [address] [id number] [place] [address] 2546 Feb, [facility] [place] [facility] [address] [id number] [place] [address] 2546 Feb, [facility] [place] [facility] [address] [id number] [place] [address]- 8699 Feb, [facility] [address] [id number] [place] [address]- 6768 Feb, [facility] [place] [facility] [address] [id number] [place] [address]- 1799 Feb, [facility] [place] [facility] [address] [id number] [place] [address]- 5974 Feb, [facility] [place] [facility] [address] [id number] [place] [address]- 0711 Feb, [facility] [address] [id number] [place] [address]- 5097 Jan, [facility] [place] [facility] [address] [id number] [place] [address]- 6567 Jan, [facility] [place] [facility] [address] [id number] [place] [address]- 4589 Jan, [facility] [place] [facility] [address] [id number] [place] [address]- 2500 Jan, [facility] [place] [facility] [address] [id number] [place] [address]- 3250 Jan, [facility] [place] [facility] [address] [id number] [place] [address]- 6813 Jan, [facility] [place] [facility] [address] [id number] [place] [address]- 0608 Jan, [facility] [place] [facility] [address] [id number] [place] [address]- 3127 Jan, [facility] [place] [facility] [address] [id number] [place] [address]- 3360 Jan, [facility] [place] [facility] [address] [id number] [place] [address]- 3605 Jan, [facility] [place] [facility] [address] [id number] [place] [address]- 9049 Jan, [facility] [place] [facility] [address] [id number] [place] [address]- 0997 17 Dec, 2010 [facility] [place] [facility] [address] [id number] [place] [address]- 7100 17 Dec, 2010 [facility] [place] [facility] [address] [id number] [place] [address]- 1684 17 Dec, 2010 [facility] [place] [facility] [address] [id number] [place] [address]- 2969 16 Dec, 2010 [facility] [place] [facility] [address] [id number] [place] [address]- 8587 14 Dec, 2010 [facility] [place] [facility] [address] [id number] [place] [address]- 7232 09 Dec, 2010 [facility] [place] [facility] [address] [id number] [place] [address]- 2089 08 Dec, 2010 [facility] [place] [facility] [address] [id number] [place] [address]- 4695 07 Dec, 2010 [facility] [place] [facility] [address] [id number] [place] [address]- 1195 02 Dec, 2010 [facility] [place] [facility] [address] [id number] [place] [address]- 5313 31 Nov, 2010 [facility] [place] [facility] [address] [id number] [place] [address]- 0985 31 Nov, 2010 [facility] [place] [facility] [address] [id number] [place] [address]- 9151 27 Nov, 2010 [facility] [place] [facility] [address] [id number] [place] [address]- 5378 24 Nov, 2010 [facility] [place] [facility] [address] [id number] [place] [address]- 0182 24 Nov, 2010 [facility] [place] [facility] [address] [id number] [place] [address]- 9010 13 Nov, 2010 [facility] [place] [facility] [address] [id number] [place] [address]- 2848 Aug, [facility] [address] [facility] [id number] [place] [address]- 9467 Feb, [facility] [address] [facility] [id number] [place] [address]- 7208 Jan, [facility] [address] [facility] [id number] [place] [address]- 1565 Jan, [facility] [address] [facility] [id number] [place] [address]- 3691 Jan, [facility] [address] [facility] [id number] [place] [address]- 7923 Jan, [facility] [address] [facility] [id number] [place] [address]- 3419 Jan, [facility] [id number] [address]- 6439 Dec, [facility] [id number] [place] [address]- 3230 Dec, [facility] [id number] [address]- 1816 Dec, [facility] [id number] [address]- 8788 Dec, [facility] [address] [id number] [place] [address]- 0227 Nov, [facility] [id number] [address]- 9062 Nov, [facility] [address] [id number] [place] [address]- 3193 Nov, IMMUNIZATIONS No Known Immunizations SOCIAL HISTORY [...]
--- OUTSIDE RECORDS SUMMARY | 2018-01-13 22:27 | XMS REPORT ---
Author Author WYATT SOTO [facility] eClinicalWorks Address Unknown Phone Unavailable Care Team Providers Care Senior Bioinformatics Scientist Name Role Phone WYATT SOTO CP Unavailable [...] Instructions Start Date End Date Status Dosage Duragesic-[address] [facility] [id number] MCG/HR Transdermal q 3 days Mar 06, 2015 apply 1 patch to skin every 72 hours Results No Known Results Summary Purpose eClinicalWorks Submission
--- OUTSIDE RECORDS SUMMARY | 2018-01-13 22:27 | XMS REPORT ---
Author Author WYATT SOTO [facility] eClinicalWorks Address Unknown Phone Unavailable Care Team Providers Care Plastic Surgery Specialist Name Role Phone WYATT SOTO CP Unavailable [...]
--- OUTSIDE RECORDS SUMMARY | 2018-01-13 22:31 | XMS REPORT | Continuity of Care Document ---
Author Author [facility] Address Unknown Phone Unavailable Allergies Active Description Code Type Severity Reaction Onset Reported/Identified Relationship to Patient Clinical Status Yes propranolol Drug Allergy N/A N/A 09/12/2009 Yes propranolol Drug Allergy 09/12/2009 Yes Bactrim Drug Allergy N/A N/A 11/30/2009 Yes Penicillins Drug Allergy N/A N/A 11/30/2009 Yes Bactrim Drug Allergy 11/30/2009 Yes Penicillins Drug Allergy 11/30/2009 Yes Penicillins [id number] Drug Allergy Unknown N/A 06/14/2013 Yes Sulfa (Sulfonamide Antibiotics) [id number] Drug Allergy Unknown N/A 2013 Yes sulfamethoxazole [id number] Drug Allergy Unknown N/A 06/14/2013 Yes trimethoprim [id number] Drug Allergy Unknown N/A 06/14/2013 Medications There is no data. Problems Date Dx Coded Attending Type Code Diagnosis Diagnosed By 07/29/2009 Ot 300.00 08/31/2009 WYATT SOTO MD 401.1 HYPERTENSION, BENIGN ESSENTIAL 08/31/2009 WYATT SOTO MD 723.1 Cervicalgia 08/31/2009 WYATT SOTO MD 781.0 ABNORMAL INVOLUNTARY MOVEMENTS 08/31/2009 WYATT SOTO MD 401.1 HYPERTENSION, BENIGN ESSENTIAL 08/31/2009 WYATT SOTO MD 723.1 Cervicalgia 08/31/2009 WYATT SOTO MD 781.0 ABNORMAL INVOLUNTARY MOVEMENTS 08/31/2009 WYATT SOTO MD 401.1 HYPERTENSION, BENIGN ESSENTIAL 08/31/2009 WYATT SOTO MD 723.1 Cervicalgia 08/31/2009 WYATT SOTO MD 781.0 ABNORMAL INVOLUNTARY MOVEMENTS 08/31/2009 401.1 HYPERTENSION, BENIGN ESSENTIAL 08/31/2009 723.1 Cervicalgia 08/31/2009 781.0 ABNORMAL INVOLUNTARY MOVEMENTS 08/31/2009 401.1 HYPERTENSION, BENIGN ESSENTIAL 08/31/2009 723.1 Cervicalgia 08/31/2009 781.0 ABNORMAL INVOLUNTARY MOVEMENTS 08/31/2009 401.1 HYPERTENSION, BENIGN ESSENTIAL 08/31/2009 723.1 Cervicalgia 08/31/2009 781.0 ABNORMAL INVOLUNTARY MOVEMENTS 08/31/2009 CHARLES CAI, WYATT 401.1 HYPERTENSION, BENIGN ESSENTIAL 08/31/2009 CHARLES CAI, WYATT 723.1 Cervicalgia 08/31/2009 CHARLES CAI, WYATT 781.0 ABNORMAL INVOLUNTARY MOVEMENTS 08/31/2009 CHARLES CAI, WYATT 401.1 HYPERTENSION, BENIGN ESSENTIAL 08/31/2009 CHARLES CAI, WYATT 723.1 Cervicalgia 08/31/2009 WYATT SOTO MD 781.0 ABNORMAL INVOLUNTARY MOVEMENTS 08/31/2009 WYATT SOTO MD 401.1 HYPERTENSION, BENIGN ESSENTIAL 08/31/2009 WYATT SOTO MD 723.1 Cervicalgia 08/31/2009 WYATT SOTO MD 781.0 ABNORMAL INVOLUNTARY MOVEMENTS 08/31/2009 WYATT SOTO MD 401.1 HYPERTENSION, BENIGN ESSENTIAL 08/31/2009 WYATT SOTO MD 723.1 Cervicalgia 08/31/2009 WYATT SOTO MD 781.0 ABNORMAL INVOLUNTARY MOVEMENTS 08/31/2009 WYATT SOTO MD 401.1 HYPERTENSION, BENIGN ESSENTIAL 08/31/2009 WYATT SOTO MD 723.1 Cervicalgia 08/31/2009 WYATT SOTO MD 781.0 ABNORMAL INVOLUNTARY MOVEMENTS 08/31/2009 WYATT SOTO MD 401.1 HYPERTENSION, BENIGN ESSENTIAL 08/31/2009 WYATT SOTO MD 723.1 Cervicalgia 08/31/2009 WYATT SOTO MD 781.0 ABNORMAL INVOLUNTARY MOVEMENTS 08/31/2009 WYATT SOTO MD 401.1 HYPERTENSION, BENIGN ESSENTIAL 08/31/2009 WYATT SOTO MD 723.1 Cervicalgia 08/31/2009 WYATT SOTO MD 781.0 ABNORMAL INVOLUNTARY MOVEMENTS 08/31/2009 AUSTIN ERICKSON, DAIANA A 401.1 HYPERTENSION, BENIGN ESSENTIAL 08/31/2009 AUSTIN ERICKSON, DAIANA A 723.1 Cervicalgia 08/31/2009 AUSTIN ERICKSON, DAIANA A 781.0 ABNORMAL INVOLUNTARY MOVEMENTS 08/31/2009 WYATT SOTO MD 401.1 HYPERTENSION, BENIGN ESSENTIAL 08/31/2009 WYATT SOTO MD 723.1 Cervicalgia 08/31/2009 WYATT SOTO MD 781.0 ABNORMAL INVOLUNTARY MOVEMENTS 08/31/2009 SALVADOR DO, LEANNE K 401.1 HYPERTENSION, BENIGN ESSENTIAL 08/31/2009 SALVADOR DO, LEANNE K 723.1 Cervicalgia 08/31/2009 SALVADOR DO, LEANNE K 781.0 ABNORMAL INVOLUNTARY MOVEMENTS 08/31/2009 WYATT SOTO MD 401.1 HYPERTENSION, BENIGN ESSENTIAL 08/31/2009 WYATT SOTO MD 723.1 Cervicalgia 08/31/2009 WYATT SOTO MD 781.0 ABNORMAL INVOLUNTARY MOVEMENTS 08/31/2009 MARY DE LUNA APRN 401.1 HYPERTENSION, BENIGN ESSENTIAL 08/31/2009 MARY DE LUNA APRN 723.1 Cervicalgia 08/31/2009 MARY DE LUNA APRN 781.0 ABNORMAL INVOLUNTARY MOVEMENTS 08/31/2009 WYATT SOTO MD 401.1 HYPERTENSION, BENIGN ESSENTIAL 08/31/2009 WYATT SOTO MD 723.1 Cervicalgia 08/31/2009 WYATT SOTO MD 781.0 ABNORMAL INVOLUNTARY MOVEMENTS 08/31/2009 TAYLER LATHAM APRN 401.1 HYPERTENSION, BENIGN ESSENTIAL 08/31/2009 TAYLER LATHAM APRN 723.1 Cervicalgia 08/31/2009 TAYLER LATHAM APRN 781.0 ABNORMAL INVOLUNTARY MOVEMENTS 08/31/2009 TAYLER LATHAM APRN 401.1 HYPERTENSION, BENIGN ESSENTIAL 08/31/2009 TAYLER LATHAM APRN 723.1 Cervicalgia 08/31/2009 TAYLER LATHAM APRN 781.0 ABNORMAL INVOLUNTARY MOVEMENTS 08/31/2009 TAYLER LATHAM APRN 401.1 HYPERTENSION, BENIGN ESSENTIAL 08/31/2009 TAYLER LATHAM APRN T 723.1 Cervicalgia 08/31/2009 TAYLER LATHAM APRN 781.0 ABNORMAL INVOLUNTARY MOVEMENTS 08/31/2009 SALVADOR DO, LEANNE K 401.1 HYPERTENSION, BENIGN ESSENTIAL 08/31/2009 SALVADOR DO, LEANNE K 723.1 Cervicalgia 08/31/2009 SALVADOR DO, LEANNE K 781.0 ABNORMAL INVOLUNTARY MOVEMENTS 08/31/2009 WYATT SOTO MD 401.1 HYPERTENSION, BENIGN ESSENTIAL 08/31/2009 WYATT SOTO MD 723.1 Cervicalgia 08/31/2009 CHARLES CAI, WYATT 781.0 ABNORMAL INVOLUNTARY MOVEMENTS 08/31/2009 TAYLER LATHAM APRN 401.1 HYPERTENSION, BENIGN ESSENTIAL 08/31/2009 TAYLER LATHAM APRN 723.1 Cervicalgia 08/31/2009 TAYLER LATHAM APRN 781.0 ABNORMAL INVOLUNTARY MOVEMENTS 08/31/2009 WYATT SOTO MD 401.1 HYPERTENSION, BENIGN ESSENTIAL 08/31/2009 CHARLES CAI, WYATT 723.1 Cervicalgia 08/31/2009 WYATT SOTO MD 781.0 ABNORMAL INVOLUNTARY MOVEMENTS 09/12/2009 WYATT SOTO MD 716.90 ARTHROPATHY 09/12/2009 CHARLES CAI, WYATT 716.90 ARTHROPATHY 09/12/2009 CHARLES CAI, WYATT 716.90 ARTHROPATHY 09/12/2009 716.90 ARTHROPATHY 09/12/2009 716.90 ARTHROPATHY 09/12/2009 716.90 ARTHROPATHY 09/12/2009 CHARLES CAI, WYATT 716.90 ARTHROPATHY 09/12/2009 CHARLES CAI, WYATT 716.90 ARTHROPATHY 09/12/2009 CHARLES CAI, WYATT 716.90 ARTHROPATHY 09/12/2009 CHARLES CAI, WYATT 716.90 ARTHROPATHY 09/12/2009 CHARLES CAI, WYATT 716.90 ARTHROPATHY 09/12/2009 CHARLES CAI, WYATT 716.90 ARTHROPATHY 09/12/2009 CHARLES CAI, WYATT 716.90 ARTHROPATHY 09/12/2009 DAIANA AVILA APRN 716.90 ARTHROPATHY 09/12/2009 WYATT SOTO MD 716.90 ARTHROPATHY 09/12/2009 LEANNE SALVADOR DO 716.90 ARTHROPATHY 09/12/2009 CHARLES CAI, WYATT 716.90 ARTHROPATHY 09/12/2009 MARY DE LUNA APRN 716.90 ARTHROPATHY 09/12/2009 WYATT SOTO MD 716.90 ARTHROPATHY 09/12/2009 TAYLER LATHAM APRN 716.90 ARTHROPATHY 09/12/2009 TAYLER LATHAM APRN 716.90 ARTHROPATHY 09/12/2009 TAYLER LATHAM APRN 716.90 ARTHROPATHY 09/12/2009 LEANNE SALVADOR DO 716.90 ARTHROPATHY 09/12/2009 CHARLES CAI, WAYTT 716.90 ARTHROPATHY 09/12/2009 TAYLER LATHAM APRN 716.90 ARTHROPATHY 09/12/2009 CHARLES CAI, WYATT 716.90 ARTHROPATHY 09/28/2009 CHARLES CAI, WYATT 924.01 Contusion Of, Hip 09/28/2009 CHARLES CAI, WYATT 924.01 Contusion Of, Hip 09/28/2009 CHARLES CAI, WYATT 924.01 Contusion Of, Hip 09/28/2009 924.01 Contusion Of , Hip 09/28/2009 924.01 Contusion Of , Hip 09/28/2009 924.01 Contusion Of , Hip 09/28/2009 CAHRLES CAI, WYATT 924.01 Contusion Of, Hip 09/28/2009 CHARLES CAI, WYATT 924.01 Contusion Of, Hip 09/28/2009 CHARLES CAI, WYATT 924.01 Contusion Of, Hip 09/28/2009 CHARLES CAI, WYATT 924.01 Contusion Of, Hip 09/28/2009 CHARLES CAI, WYATT 924.01 Contusion Of, Hip 09/28/2009 CHARLES CAI, WYATT 924.01 Contusion Of, Hip 09/28/2009 CHARLES CAI, WYATT 924.01 Contusion Of, Hip 09/28/2009 DAIANA AVILA APRN 924.01 Contusion Of, Hip 09/28/2009 CHARLES CAI, WYATT 924.01 Contusion Of, Hip 09/28/2009 LEANNE SALVADOR DO 924.01 Contusion Of, Hip 09/28/2009 CHARLES CAI, WYATT 924.01 Contusion Of, Hip 09/28/2009 MARY DE LUNA APRN 924.01 Contusion Of, Hip 09/28/2009 WYATT SOTO MD 924.01 Contusion Of, Hip 09/28/2009 TAYLER LATHAM APRN 924.01 Contusion Of, Hip 09/28/2009 TAYLER LATHAM APRN 924.01 Contusion Of, Hip 09/28/2009 TAYLER LATHAM APRN 924.01 Contusion Of, Hip 09/28/2009 LEANNE SALVADOR DO 924.01 Contusion Of, Hip 09/28/2009 WYATT SOTO MD 924.01 Contusion Of, Hip 09/28/2009 TAYLER LATHAM APRN 924.01 Contusion Of, Hip 09/28/2009 WYATT SOTO MD 924.01 Contusion Of, Hip 10/05/2009 WYATT SOTO MD 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, OPIOID ABUSE, CONTINUOUS 10/05/2009 WYATT SOTO MD 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, OPIOID ABUSE, CONTINUOUS 10/05/2009 WYATT SOTO MD 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, OPIOID ABUSE, CONTINUOUS 10/05/2009 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, OPIOID ABUSE, CONTINUOUS 10/05/2009 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, OPIOID ABUSE, CONTINUOUS 10/05/2009 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, OPIOID ABUSE, CONTINUOUS 10/05/2009 WYATT SOTO MD 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, OPIOID ABUSE, CONTINUOUS 10/05/2009 WYATT SOTO MD 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, OPIOID ABUSE, CONTINUOUS 10/05/2009 WYATT SOTO MD 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, OPIOID ABUSE, CONTINUOUS 10/05/2009 WYATT SOTO MD 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, OPIOID ABUSE, CONTINUOUS 10/05/2009 WYATT SOTO MD 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, OPIOID ABUSE, CONTINUOUS 10/05/2009 WYATT SOTO MD 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, OPIOID ABUSE, CONTINUOUS 10/05/2009 WYATT SOTO MD 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, OPIOID ABUSE, CONTINUOUS 10/05/2009 DAIANA AVILA APRN 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, OPIOID ABUSE, CONTINUOUS 10/05/2009 WYATT SOTO MD 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, OPIOID ABUSE, CONTINUOUS 10/05/2009 LEANNE SALVADOR DO 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, OPIOID ABUSE, CONTINUOUS 10/05/2009 WYATT SOTO MD 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, OPIOID ABUSE, CONTINUOUS 10/05/2009 MARY DE LUNA APRN 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, OPIOID ABUSE, CONTINUOUS 10/05/2009 WYATT SOTO MD 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, OPIOID ABUSE, CONTINUOUS 10/05/2009 TAYLER LATHAM APRN 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, OPIOID ABUSE, CONTINUOUS 10/05/2009 TAYLER LATHAM APRN 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, OPIOID ABUSE, CONTINUOUS 10/05/2009 TAYLER LATHAM APRN 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, OPIOID ABUSE, CONTINUOUS 10/05/2009 LEANNE SALVADOR DO 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, OPIOID ABUSE, CONTINUOUS 10/05/2009 WYATT SOTO MD 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, OPIOID ABUSE, CONTINUOUS 10/05/2009 TAYLER LATHAM APRN 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, OPIOID ABUSE, CONTINUOUS 10/05/2009 WYATT SOTO MD 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, OPIOID ABUSE, CONTINUOUS 10/11/2009 Ot 304.00 10/11/2009 Ot 304.10 10/11/2009 Ot 304.30 10/11/2009 Ot 304.43 10/11/2009 Ot 333.1 10/11/2009 Ot 338.29 10/11/2009 Ot 719.45 10/11/2009 Ot 723.1 11/25/2009 Ot 850.0 11/25/2009 Ot 913.0 11/25/2009 Ot 959.01 11/25/2009 Ot E000.8 11/25/2009 Ot E818.1 11/25/2009 Ot V06.1 11/30/2009 WYATT SOTO MD 309.81 POSTTRAUMATIC STRESS DISORDER 11/30/2009 WYATT SOTO MD 309.81 POSTTRAUMATIC STRESS DISORDER 11/30/2009 WYATT SOTO MD 309.81 POSTTRAUMATIC STRESS DISORDER 11/30/2009 309.81 POSTTRAUMATIC STRESS DISORDER 11/30/2009 309.81 POSTTRAUMATIC STRESS DISORDER 11/30/2009 309.81 POSTTRAUMATIC STRESS DISORDER 11/30/2009 WYATT SOTO MD 309.81 POSTTRAUMATIC STRESS DISORDER 11/30/2009 WYATT SOTO MD 309.81 POSTTRAUMATIC STRESS DISORDER 11/30/2009 WYATT SOTO MD 309.81 POSTTRAUMATIC STRESS DISORDER 11/30/2009 WYATT SOTO MD 309.81 POSTTRAUMATIC STRESS DISORDER 11/30/2009 WYATT SOTO MD 309.81 POSTTRAUMATIC STRESS DISORDER 11/30/2009 WYATT SOTO MD 309.81 POSTTRAUMATIC STRESS DISORDER 11/30/2009 WYATT SOTO MD 309.81 POSTTRAUMATIC STRESS DISORDER 11/30/2009 DAIANA AVILA APRN 309.81 POSTTRAUMATIC STRESS DISORDER 11/30/2009 WYATT SOTO MD 309.81 POSTTRAUMATIC STRESS DISORDER 11/30/2009 SALVADOR LEANNE DANG K 309.81 POSTTRAUMATIC STRESS DISORDER 11/30/2009 WYATT SOTO MD 309.81 POSTTRAUMATIC STRESS DISORDER 11/30/2009 MARY DE LUNA APRN 309.81 POSTTRAUMATIC STRESS DISORDER 11/30/2009 WYATT SOTO MD 309.81 POSTTRAUMATIC STRESS DISORDER 11/30/2009 TAYLER LATHAM APRN T 309.81 POSTTRAUMATIC STRESS DISORDER 11/30/2009 TAYLER LATHAM APRN T 309.81 POSTTRAUMATIC STRESS DISORDER 11/30/2009 TAYLER LATHAM APRN T 309.81 POSTTRAUMATIC STRESS DISORDER 11/30/2009 LEANNE SALVADOR DO K 309.81 POSTTRAUMATIC STRESS DISORDER 11/30/2009 WYATT OSTO MD 309.81 POSTTRAUMATIC STRESS DISORDER 11/30/2009 TAYLER LATHAM APRN T 309.81 POSTTRAUMATIC STRESS DISORDER 11/30/2009 WYATT SOTO MD 309.81 POSTTRAUMATIC STRESS DISORDER 12/13/2009 Ot 305.90 12/13/2009 Ot 338.29 12/13/2009 Ot 401.9 12/13/2009 Ot 719.45 12/13/2009 Ot 723.1 12/13/2009 Ot 780.79 12/13/2009 Ot 908.9 12/13/2009 Ot 966.3 12/13/2009 Ot 969.4 12/13/2009 Ot E950.3 12/13/2009 Ot E950.4 12/13/2009 Ot E969 12/13/2009 Ot V15.41 12/21/2009 Ot 780.79 12/21/2009 Ot 786.09 12/27/2009 Ot 041.11 12/27/2009 Ot 276.51 12/27/2009 Ot 305.20 12/27/2009 Ot 305.70 12/27/2009 Ot 338.21 12/27/2009 Ot 401.9 12/27/2009 Ot 593.9 12/27/2009 Ot 599.0 12/27/2009 Ot 781.0 01/11/2010 WYATT SOTO MD 346.90 MIGRAINE UNSPECIFIED WITHOUT MENTION OF INTRACTABLE MIGRAINE WITHOUT MENTION OF STATUS MIGRAINOSUS 01/11/2010 WYATT SOTO MD 346.90 MIGRAINE UNSPECIFIED WITHOUT MENTION OF INTRACTABLE MIGRAINE WITHOUT MENTION OF STATUS MIGRAINOSUS 01/11/2010 CHARLES CAI, WYATT 346.90 Migraine Unspecified Without Mention Of Intractable Migraine Without Mention Of Status Migrainosus 01/11/2010 346.90 Migraine Unspecified Without Mention Of Intractable Migraine Without Mention Of Status Migrainosus 01/11/2010 346.90 Migraine Unspecified Without Mention Of Intractable Migraine Without Mention Of Status Migrainosus 01/11/2010 346.90 Migraine Unspecified Without Mention Of Intractable Migraine Without Mention Of Status Migrainosus 01/11/2010 WYATT SOTO MD 346.90 Migraine Unspecified Without Mention Of Intractable Migraine Without Mention Of Status Migrainosus 01/11/2010 WYATT SOTO MD 346.90 Migraine Unspecified Without Mention Of Intractable Migraine Without Mention Of Status Migrainosus 01/11/2010 WYATT SOTO MD 346.90 Migraine Unspecified Without Mention Of Intractable Migraine Without Mention Of Status Migrainosus 01/11/2010 WYATT SOTO MD 346.90 Migraine Unspecified Without Mention Of Intractable Migraine Without Mention Of Status Migrainosus 01/11/2010 WYATT SOTO MD 346.90 Migraine Unspecified Without Mention Of Intractable Migraine Without Mention Of Status Migrainosus 01/11/2010 WYATT SOTO MD 346.90 Migraine Unspecified Without Mention Of Intractable Migraine Without Mention Of Status Migrainosus 01/11/2010 WYATT SOTO MD 346.90 MIGRAINE UNSPECIFIED WITHOUT MENTION OF INTRACTABLE MIGRAINE WITHOUT MENTION OF STATUS MIGRAINOSUS 01/11/2010 DAIANA AVILA APRN 346.90 Migraine Unspecified Without Mention Of Intractable Migraine Without Mention Of Status Migrainosus 01/11/2010 WYATT SOTO MD 346.90 Migraine Unspecified Without Mention Of Intractable Migraine Without Mention Of Status Migrainosus 01/11/2010 LEANNE SALVADOR DO 346.90 Migraine Unspecified Without Mention Of Intractable Migraine Without Mention Of Status Migrainosus 01/11/2010 WYATT SOTO MD 346.90 Migraine Unspecified Without Mention Of Intractable Migraine Without Mention Of Status Migrainosus 01/11/2010 MARY DE LUNA APRN 346.90 Migraine Unspecified Without Mention Of Intractable Migraine Without Mention Of Status Migrainosus 01/11/2010 WYATT SOTO MD 346.90 Migraine Unspecified Without Mention Of Intractable Migraine Without Mention Of Status Migrainosus 01/11/2010 TAYLER LATHAM APRN 346.90 Migraine Unspecified Without Mention Of Intractable Migraine Without Mention Of Status Migrainosus 01/11/2010 TAYLER LATHAM APRN 346.90 Migraine Unspecified Without Mention Of Intractable Migraine Without Mention Of Status Migrainosus 01/11/2010 TAYLER LATHAM APRN 346.90 Migraine Unspecified Without Mention Of Intractable Migraine Without Mention Of Status Migrainosus 01/11/2010 LEANNE SALVADOR DO 346.90 Migraine Unspecified Without Mention Of Intractable Migraine Without Mention Of Status Migrainosus 01/11/2010 WYATT SOTO MD 346.90 Migraine Unspecified Without Mention Of Intractable Migraine Without Mention Of Status Migrainosus 01/11/2010 TAYLER LATHAM APRN 346.90 Migraine Unspecified Without Mention Of Intractable Migraine Without Mention Of Status Migrainosus 01/11/2010 WYATT SOTO MD 346.90 Migraine Unspecified Without Mention Of Intractable Migraine Without Mention Of Status Migrainosus 03/22/2010 WYATT SOTO 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 03/22/2010 WYATT SOTO 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 03/22/2010 WYATT SOTO 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 03/22/2010 717.7 Chondromalacia Of Patella 03/22/2010 717.7 Chondromalacia Of Patella 03/22/2010 717.7 Chondromalacia Of Patella 03/22/2010 WYATT SOTO 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 03/22/2010 WYATT SOTO 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 03/22/2010 WYATT SOTO 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 03/22/2010 WYATT SOTO 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 03/22/2010 WYATT SOTO 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 03/22/2010 WYATT SOTO 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 03/22/2010 WYATT SOTO 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 03/22/2010 DAIANA AVILA APRN 717.7 Chondromalacia Of Patella 03/22/2010 WYATT SOTO MD 717.7 Chondromalacia Of Patella 03/22/2010 SALVADOR LEANNE DANG 717.7 Chondromalacia Of Patella 03/22/2010 WYATT SOTO MD 717.7 Chondromalacia Of Patella 03/22/2010 MARY DE LUNA APRN 717.7 Chondromalacia Of Patella 03/22/2010 WYATT SOTO MD 717.7 Chondromalacia Of Patella 03/22/2010 TAYLER LATHAM APRN 717.7 Chondromalacia Of Patella 03/22/2010 TAYLER LATHAM APRN 717.7 Chondromalacia Of Patella 03/22/2010 TAYLER LATHAM APRN 717.7 Chondromalacia Of Patella 03/22/2010 LEANNE SLAVADOR DO 717.7 Chondromalacia Of Patella 03/22/2010 WYATT SOTO MD 717.7 Chondromalacia Of Patella 03/22/2010 TAYLER LATHAM APRN 717.7 Chondromalacia Of Patella 03/22/2010 WYATT SOTO MD 717.7 Chondromalacia Of Patella 07/13/2010 WYATT SOTO MD 584.9 Acute Kidney Failure Unspecified 07/13/2010 WYATT SOTO MD 584.9 Acute Kidney Failure Unspecified 07/13/2010 WYATT SOTO MD 584.9 Acute Kidney Failure Unspecified 07/13/2010 584.9 Acute Kidney Failure Unspecified 07/13/2010 584.9 Acute Kidney Failure Unspecified 07/13/2010 584.9 Acute Kidney Failure Unspecified 07/13/2010 WYATT SOTO MD 584.9 Acute Kidney Failure Unspecified 07/13/2010 WYATT SOTO MD 584.9 Acute Kidney Failure Unspecified 07/13/2010 WYATT SOTO MD 584.9 Acute Kidney Failure Unspecified 07/13/2010 WYATT SOTO MD 584.9 Acute Kidney Failure Unspecified 07/13/2010 WYATT SOTO MD 584.9 Acute Kidney Failure Unspecified 07/13/2010 WYATT SOTO MD 584.9 Acute Kidney Failure Unspecified 07/13/2010 WYATT SOTO MD 584.9 Acute Kidney Failure Unspecified 07/13/2010 DAIANA AVILA APRN 584.9 Acute Kidney Failure Unspecified 07/13/2010 CHARLES CAI, WYATT 584.9 Acute Kidney Failure Unspecified 07/13/2010 LEANNE SALVADOR DO 584.9 Acute Kidney Failure Unspecified 07/13/2010 WYATT SOTO MD 584.9 Acute Kidney Failure Unspecified 07/13/2010 MARY DE LUNA APRN 584.9 Acute Kidney Failure Unspecified 07/13/2010 WYATT SOTO MD 584.9 Acute Kidney Failure Unspecified 07/13/2010 TAYLER LATHAM APRN 584.9 Acute Kidney Failure Unspecified 07/13/2010 TAYLER LATHAM APRN 584.9 Acute Kidney Failure Unspecified 07/13/2010 TAYLER LATHAM APRN 584.9 Acute Kidney Failure Unspecified 07/13/2010 LEANNE SALVADOR DO 584.9 Acute Kidney Failure Unspecified 07/13/2010 WYATT SOTO MD 584.9 Acute Kidney Failure Unspecified 07/13/2010 TAYLER LATHAM APRN 584.9 Acute Kidney Failure Unspecified 07/13/2010 WYATT SOTO MD 584.9 Acute Kidney Failure Unspecified 12/10/2010 Ot 722.4 12/10/2010 Ot 723.1 01/10/2011 WYATT SOTO MD 298.9 P PSYCHOSIS NOS 01/10/2011 WYATT SOTO MD 300.15 DS DISSOCIATIVE DIS NOS 01/10/2011 WYATT SOTO MD 304.40 AMPHETAMINE DEPENDENCE 01/10/2011 WYATT SOTO MD V58.69 MEDICATION HIGH RISK 01/10/2011 WYATT SOTO MD 298.9 P PSYCHOSIS NOS 01/10/2011 WYATT SOTO MD 300.15 DS DISSOCIATIVE DIS NOS 01/10/2011 WYATT SOTO MD 304.40 AMPHETAMINE DEPENDENCE 01/10/2011 WYATT SOTO MD V58.69 MEDICATION HIGH RISK 01/10/2011 WYATT SOTO MD 298.9 P PSYCHOSIS NOS 01/10/2011 WYATT SOTO MD 300.15 DS DISSOCIATIVE DIS NOS 01/10/2011 WYATT SOTO MD 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 01/10/2011 WYATT SOTO MD V58.69 Medication High Risk 01/10/2011 298.9 P PSYCHOSIS NOS 01/10/2011 300.15 DS DISSOCIATIVE DIS NOS 01/10/2011 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 01/10/2011 V58.69 Medication High Risk 01/10/2011 298.9 P PSYCHOSIS NOS 01/10/2011 300.15 DS DISSOCIATIVE DIS NOS 01/10/2011 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 01/10/2011 V58.69 Medication High Risk 01/10/2011 298.9 P PSYCHOSIS NOS 01/10/2011 300.15 DS DISSOCIATIVE DIS NOS 01/10/2011 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 01/10/2011 V58.69 Medication High Risk 01/10/2011 WYATT SOTO MD 298.9 P PSYCHOSIS NOS 01/10/2011 CHARLES CAI, WYATT 300.15 DS DISSOCIATIVE DIS NOS 01/10/2011 WYATT SOTO MD 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 01/10/2011 WYATT SOTO MD V58.69 Medication High Risk 01/10/2011 WYATT SOTO MD 298.9 P PSYCHOSIS NOS 01/10/2011 WYATT SOTO MD 300.15 DS DISSOCIATIVE DIS NOS 01/10/2011 WYATT SOTO MD 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 01/10/2011 WYATT SOTO MD V58.69 Medication High Risk 01/10/2011 WYATT SOTO MD 298.9 P PSYCHOSIS NOS 01/10/2011 WYATT SOTO MD 300.15 DS DISSOCIATIVE DIS NOS 01/10/2011 WYATT SOTO MD 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 01/10/2011 WYATT SOTO MD V58.69 Medication High Risk 01/10/2011 WYATT SOTO MD 298.9 P PSYCHOSIS NOS 01/10/2011 WYATT SOTO MD 300.15 DS DISSOCIATIVE DIS NOS 01/10/2011 WYATT SOTO MD 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 01/10/2011 WYATT SOTO MD V58.69 Medication High Risk 01/10/2011 WYATT SOTO MD 298.9 P PSYCHOSIS NOS 01/10/2011 WYATT SOTO MD 300.15 DS DISSOCIATIVE DIS NOS 01/10/2011 WYATT SOTO MD 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 01/10/2011 WYATT SOTO MD V58.69 Medication High Risk 01/10/2011 WYATT SOTO MD 298.9 P PSYCHOSIS NOS 01/10/2011 WYATT SOTO MD 300.15 DS DISSOCIATIVE DIS NOS 01/10/2011 WYATT SOTO MD 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 01/10/2011 WYATT SOTO MD V58.69 Medication High Risk 01/10/2011 WYATT SOTO MD 298.9 P PSYCHOSIS NOS 01/10/2011 WYATT SOTO MD 300.15 DS DISSOCIATIVE DIS NOS 01/10/2011 WYATT SOTO MD 304.40 AMPHETAMINE DEPENDENCE 01/10/2011 WYATT SOTO MD V58.69 MEDICATION HIGH RISK 01/10/2011 [facility] PATIENT [facility]ARE SECRETARY, DAIANA A 298.9 P PSYCHOSIS NOS 01/10/2011 [facility] PATIENT CARE SECRETARY, DAIANA A 300.15 DS DISSOCIATIVE DIS NOS 01/10/2011 [facility] PATIENT CARE SECRETARY, DAIANA A 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 01/10/2011 [facility] PATIENT CARE SECRETARY, DAIANA A V58.69 Medication High Risk 01/10/2011 WYATT SOTO MD 298.9 P PSYCHOSIS NOS 01/10/2011 WYATT SOTO MD 300.15 DS DISSOCIATIVE DIS NOS 01/10/2011 WYATT SOTO MD 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 01/10/2011 WYATT SOTO MD V58.69 Medication High Risk 01/10/2011 SALVADOR DO, LEANNE K 298.9 P PSYCHOSIS NOS 01/10/2011 SALVADOR DO, LEANNE K 300.15 DS DISSOCIATIVE DIS NOS 01/10/2011 SALVADOR DO, LEANNE K 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 01/10/2011 SALVADOR DO LEANNE K V58.69 Medication High Risk 01/10/2011 WYATT SOTO MD 298.9 P PSYCHOSIS NOS 01/10/2011 WYATT SOTO MD 300.15 DS DISSOCIATIVE DIS NOS 01/10/2011 WYATT SOTO MD 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 01/10/2011 WYATT SOTO MD V58.69 Medication High Risk 01/10/2011 MARY DE LUNA APRN 298.9 P PSYCHOSIS NOS 01/10/2011 MARY DE LUNA APRN 300.15 DS DISSOCIATIVE DIS NOS 01/10/2011 MARY DE LUNA APRN 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 01/10/2011 MARY DE LUNA APRN V58.69 Medication High Risk 01/10/2011 WYATT SOTO MD 298.9 P PSYCHOSIS NOS 01/10/2011 WYATT SOTO MD 300.15 DS DISSOCIATIVE DIS NOS 01/10/2011 WYATT SOTO MD 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 01/10/2011 WYATT SOTO MD V58.69 Medication High Risk 01/10/2011 YEISON ERICKSON TAYLER T 298.9 P PSYCHOSIS NOS 01/10/2011 TAYLER LATHAM APRN T 300.15 DS DISSOCIATIVE DIS NOS 01/10/2011 TAYLER LATHAM APRN T 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 01/10/2011 YEISON VILCHISNTAYLER T V58.69 Medication High Risk 01/10/2011 [facility] PATIENT [facility] SECRET[facility], TAYLER T 298.9 P PSYCHOSIS NOS 01/10/2011 [facility] PAT[facility] SECRETARY, TAYLER T 300.15 DS DISSOCIATIVE DIS NOS 01/10/2011 TAYLER LATHAM APRN T 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 01/10/2011 TAYLER LATHAM APRN T V58.69 Medication High Risk 01/10/2011 YEISON ERICKSON TAYLER T 298.9 P PSYCHOSIS NOS 01/10/2011 YEISON ERICKSON TAYLER T 300.15 DS DISSOCIATIVE DIS NOS 01/10/2011 TAYLER LATHAM APRN T 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 01/10/2011 YEISON ERICKSON TAYLER T V58.69 Medication High Risk 01/10/2011 SALVADOR DO, LEANNE K 298.9 P PSYCHOSIS NOS 01/10/2011 SALVADOR DO, LEANNE K 300.15

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
[2018-01-14 05:06] VITALS: BP 128/67
[2018-01-14] MEDS: BETHANECHOL 10 MG (URECHOLINE) TAB PO SCH ×3 (06:34→16:54)
[2018-01-14 06:38] LABS: BASOPHILS % (AUTO) 0 % (0-10); EOSINOPHILS # (AUTO) 0.1 10^3/uL (0.0-0.3); EOSINOPHILS % (AUTO) 2 % (0-10); HEMATOCRIT 34 % (35-52); HEMOGLOBIN 10.4 G/DL (11.5-16.0); LYMPHOCYTES # (AUTO) 2.7 X 10^3 (1.0-4.0); LYMPHOCYTES % (AUTO) 33 % (12-44); MEAN CORPUSCULAR HEMOGLOBIN 25 PG (25-34); MEAN CORPUSCULAR HGB CONC 31 G/DL (32-36); MEAN CORPUSCULAR VOLUME 81 FL (80-99); MEAN PLATELET VOLUME 9.5 FL (7.4-10.4); MONOCYTES # (AUTO) 0.5 X 10^3 (0.0-1.0); MONOCYTES % (AUTO) 6 % (0-12); NEUTROPHILS # (AUTO) 4.7 X 10^3 (1.8-7.8); NEUTROPHILS % (AUTO) 59 % (42-75); PLATELET COUNT 543 10^3/uL (130-400); RED BLOOD COUNT 4.19 10^6/uL (4.35-5.85); RED CELL DISTRIBUTION WIDTH 14.9 % (10.0-14.5); WHITE BLOOD COUNT 7.9 10^3/uL (4.3-11.0)
[2018-01-14] MEDS: IBUPROFEN 600 MG (MOTRIN) TAB PO SCH ×3 (06:44→16:54)
[2018-01-14 06:54] LABS: ALANINE AMINOTRANSFERASE 13 U/L (0-55); ALBUMIN 3.1 GM/DL (3.2-4.5); ALKALINE PHOSPHATASE 138 U/L (40-136); BILIRUBIN,TOTAL 0.3 MG/DL (0.1-1.0); BUN/CREATININE RATIO 19; CARBON DIOXIDE 25 MMOL/L (21-32); CHLORIDE 102 MMOL/L (98-107); GFR ESTIMATED > 60; GLUCOSE 88 MG/DL (70-105); POTASSIUM 4.1 MMOL/L (3.6-5.0); SODIUM 138 MMOL/L (135-145); TOTAL PROTEIN 9.4 GM/DL (6.4-8.2)
[2018-01-14] MEDS: FLUoxetine HCL 20 MG (PROzac) CAP PO SCH (09:23)
[2018-01-14] MEDS: ASPIRIN E.C. 81 MG (ECOTRIN) TAB PO SCH (09:23)
[2018-01-14] MEDS: clonazePAM 1 MG (KlonoPIN) TAB PO SCH ×3 (09:23→20:26)
[2018-01-14] MEDS: PREGABALIN 75 MG (LYRICA) CAP PO SCH ×3 (09:23→20:27)
[2018-01-14] MEDS: SENNA W/DOCUSATE (SENOKOT S) TABLET PO SCH (09:23)
--- NOTE | 2018-01-14 10:39 | ST Cognitive Linguistic Eval ---
Speech Evaluation-General Medical Diagnosis General Debilitation Onset Date: Jan 09, 2018 Therapy Diagnosis Therapy Diagnosis: Cognitive-communication Precautions Precautions: Fall Precautions/Isolations: Standard Precautions Referral Referring Physician: Dr. Saroj Escalera Medical History Pertinent Medical History: Arthritis, Fractures, HTN, OA Reviewed History: Yes Social History Home: Single Level Current Living Status: Significant Other Speech PLF-Current Status Prior Level of Function Patient has an extensive medical history. Prior to this admission she lived with her significant other and was primarily independent for her daily needs. Subjective Patient pleasant and cooperative. Language Eval: Auditory Comprehends Simple Yes/No Ques: Functional Indent/Objects Multiple Mace: Functional Ident/Pics in Multiple Mace: Functional Follows 1-Step Commands: Functional Follows Complex Directions: Mild Follows General Conversations: Functional Language Eval: Verbal Language Completes Spontaneous Greeting: Functional Produces Auto, Serial Info: Functional Imitates Simple Words/Phrases: Functional Word Finding: Mild Requests Basic Needs: Mild States Basic Personal Info: Mild Expresses Complex Ideas: Moderate Language Evaluation: Reading Comprehends Single Nouns: Functional Follows Simple Written Direct: Functional Comprehends Multiple Sentences: Functional Patient states she likes to read aloud which helps her speech production. She states she has a history of stuttering but does not know the cause. Objective Cognitive Domain Attention: WNL Memory: Mild Problem Solving: Mild Executive Functions: Mild Objective Formal/Standardized Tests [facility] Cognitive-Communication Results Orientation: 3:3, Memory: Immediate: 3:3, Delayed with a field of 3 multiple choice 1:3, Mental Control Exercises: 3:5, Problem Solvin:4, Comparisons: 3: 5, Auditory Comprehension: 6:10 Oral Motor/Speech Production Slight delay. It is noted patient is edentulous on the top. Impression Patient is a pleasant woman. She has had multiple surgeries related to her right hip with complications. She was able to complete the cognitive testing with repetitions as needed. She is noted to have deficits with short term memory as well as problem solving. Her long term care pharmacist memory is in tact. Patient would benefit from skilled ST services with focus on memory and problem solving related to safety awareness and independence. Communication/Social Cognition Comprehension: 5 Expression: 5 Social Interaction: 5 Problem Solvin Memory: 3 Speech Patient Assess Expression of Ideas/Wants: Exhibits (3) Understanding Verbal Content: Usually Understands (3) Brief Interview-Mental Status: Yes Repetition of Three Words: Three (3) Temporal Orientation: Year: Correct (3) Temporal Orientation: Month: Accurate within 5 days(2) Temporal Orientation: Day: Correct (1) Recall : Wear to say "Sock": Yes,after cueing (1) Recall : Color: Yes, after cueing (1) Recall : Bed: No, could not recall (0) Memory/Recall Ability: Current season, Location of own room, That he or she is in a hsp/hsp unit Speech Short Term Goals Short Term Goals Short Term Goals 1) Patient will choose appropriate definitions for linguistic terms, with 90% or greater accuracy. 2) Patient will demonstrate memory for safety procedures, with 90% or greater accuracy. 3) Patient will be able to complete problem solving tasks, with 90% or greater accuracy. Speech Pharmacy Retail Support Specialist Goals Pharmacy Retail Support Specialist Goals Patient will improve her memory and problem solving skills for safety awareness and independence to safely return home. Speech-Plan Patient/Family Goals Patient/Family Goals: Patient will return home with her significant other as soon as she has completed rehab. Treatment Plan Speech Therapy Treatment Plan: Continue Plan of Care Patient is recommended for skilled ST services with focus on memory and problem solving. Treatment Duration: Jan 14, 2018 Frequency: 5 times per week Estimated Hrs Per Day: .5 hour per day Rehab Potential: Good Barriers to Learning: Short term memory deficit Pt/Family Agrees to Plan: Yes Safety Risks/Education Teaching Recipient: Patient Teaching Methods: Discussion Response to Teaching: Verbalize Understanding Time Speech Therapy Time In: 08:30 Speech Therapy Time Out: 08:45 Total Billed Time: 15 Billed Treatment Time 1, SUNDAY [place] Jan 14, 2018 10:39
[2018-01-14] MEDS ORDERED: FLUO40CA PO (10:57)
[2018-01-14] MEDS ORDERED: BETH10TA PO (10:57)
[2018-01-14] MEDS ORDERED: SUMA100T3 PO (10:57)
[2018-01-14] MEDS ORDERED: PROM25TA14 PO (10:57)
[2018-01-14] MEDS ORDERED: FURO20TA4 PO (10:57)
[2018-01-14] MEDS ORDERED: CLON1TAB13 PO (10:57)
[2018-01-14] MEDS ORDERED: TIZA4TAB3 PO (10:57)
[2018-01-14] MEDS ORDERED: ASPI-999 PO (10:57)
[2018-01-14] MEDS ORDERED: NABU500T PO (10:57)
[2018-01-14] MEDS ORDERED: ACET325T38 PO (10:57)
[2018-01-14] MEDS ORDERED: PREG150C PO (10:57)
[2018-01-14] MEDS ORDERED: FENT1PAT58 TD (10:57)
[2018-01-14] MEDS ORDERED: PANT40TA3 PO (10:57)
[2018-01-14] MEDS ORDERED: FERR325T18 PO (11:03)
[2018-01-14] MEDS ORDERED: MELA3TAB PO (11:03)
--- NOTE | 2018-01-14 11:16 | Physical Therapy Evaluation ---
PT Evaluation-General Medical Diagnosis Admission Date Jan 13, 2018 at 20:15 Medical Diagnosis: General Debility Onset Date: Jan 09, 2018 Therapy Diagnosis Therapy Diagnosis: General Weakness, Debility Height/Weight Height (Feet): 5 Height (Inches): 8.00 Weight (Pounds): 206 Weight (Ounces): 0.8 Precautions Precautions/Isolations: Fall Prevention, Standard Precautions Weight Bear Status Right Lower Extremity: Right Full Weight Bearing Left Lower Extremity: Left Full Weight Bearing Referral Physician: Saroj Escalera MD Reason for Referral: Evaluation/Treatment Medical History Pertinent Medical History: Arthritis, Fractures, HTN, OA Reviewed History: Yes Social History Home: Single Level Current Living Status: Significant Other Entry Into Home: Ramp, Level Entry PT Steps Into Home: 0 PT Steps Inside Home: 0 Prior/Core FIM Prior Level of Function Therapy Code Descriptions/Definitions Functional [place] Measure: 0=Not Assessed/NA 4=Minimal Assistance 1=Total Assistance 5=Supervision or Setup 2=Maximal Assistance 6=Modified [place] 3=Moderate Assistance 7=Complete [place] Therapy Quality Codes: 6 Independent with activity with or without an assistive device 5 Patient requires set up or clean up by helper. Patient completes activity by themselves 4 Supervision or touching assist (CGA). [place] provide cues , steadying assist 3 The helper provides less than half the effort to complete the activity 2 The helper provides more than half the effort to complete the activity 1 Dependent. The helper does all the effort to complete an activity 7 Patient refused to complete or attempt activity 9 The patient did not perform the activity before the current illness or injury 88 Not attempted due to Medical conditions or safety concerns Functional Abilities and Goals: Independent: Patient completed the activities by him/herself, with or without an assistive device, with no assistance from a helper. Needed Some Help: Patient needed partial assistance from another person to complete activities. Dependent: A helper completed the activities for the patient. Unknown: Not Applicable: Bed Mobility: 6 Transfers (B,C,W/C) (FIM): 6 Gait: 1 Wheelchair Mobility: 6 Indoor Mobility (Ambulation): Needed Some Help Stairs: Needed Some Help Prior Devices Use: Manual wheelchair PT Evaluation-Current Subjective Pt up in WC with OT when PT arrived. Pt agreed to continue with PT for an evaluation. Pain Numeric Pain Scale: 0-No Pain Location: No Pain Reported Pt/Family Goals increase leg strength and endurance Objective Patient Orientation: [place], Normal For Age ROM/Strength ROM Upper Extremities WNL ROM Lower Extremities WNL Strength Upper Extremities WNL Strenght Lower Extremities Hip flexors 3+/5 BLE BLE 4-/5 Integumentary/Posture Bowel Incontinence: No Bladder Incontinence: No Neuromuscular (Tone, Coordination, Reflexes) Gross motor coordination intact Sensory Vision: Functional Hearing: Functional Sensation Right Upper Extremit: Intact Sensation Left Upper Extremity: Intact Sensation Right Lower Extremit: Intact Sensation Left Lower Extremity: Intact Transfers Therapy Code Descriptions/Definitions Functional [place] Measure: 0=Not Assessed/NA 4=Minimal Assistance 1=Total Assistance 5=Supervision or Setup 2=Maximal Assistance 6=Modified [place] 3=Moderate Assistance 7=Complete [place] Therapy Quality Codes: 6 Independent with activity with or without an assistive device 5 Patient requires set up or clean up by helper. Patient completes activity by themselves 4 Supervision or touching assist (CGA). [place] provide cues , steadying assist 3 The helper provides less than half the effort to complete the activity 2 The helper provides more than half the effort to complete the activity 1 Dependent. The helper does all the effort to complete an activity 7 Patient refused to complete or attempt activity 9 The patient did not perform the activity before the current illness or injury 88 Not attempted due to Medical conditions or safety concerns Transfers (B, C, W/C) (FIM): 4 Scootin Rollin Roll Left to Right (QC): 4 Supine to/from Sit: 5 Sit to/from Stand: 4 bed t/f WC(FIM only if WC use): 4 Sit to Lying (QC): 4 Lying to Sitting/Side of Bed(Q: 4 Sit to Stand (QC): 4 Chair/Tvy-kf-Xmoil Xfer(QC): 4 Car Transfer (QC): 4 Patient performed bed mobility with SBA, supine <-> sit SBA, sit <-> stand CGA, transfers CGA, car transfer CGA. Patient performs transfers more with a modified squat pivot. Gait Does the Patient Walk?: No and Walking Goal NOT indicated Distance: 3'x2 Gait Level of Assist: 4 Gait Persons Needed: 1 Gait Assistive Device: Parallel Bars Comments/Gait Description Patient was able to ambulate forward and back 3' in the parallel bars with CGA. Wheelchair Training Does the Pt Use a Wheelchair?: Yes Wheelchair (FIM): 5 Wheelchair Distance (FIM): 3=150 ft Distance: 150' Wheelchair Level of Assist: 5 Wheel 50 ft with 2 turns (QC): 4 Wheel 150 ft (QC): 4 Type of Wheelchair: Manual Stairs If not tested on admit;explain Patient not able to performs stairs at this time due to right hip impairment and decreased strength. Balance Sitting Static: Good Sitting Dynamic: Good Standing Static: Fair Standing Dynamic: Fair Treatment Supine exercises: Heel slides, Ankle pumps Standing; Sit to stand x5 Assessment/Needs Pt is able to transfer to WC to Car with CGA. Patient does need cueing during transfers but shows that she learns quickly. Patient is SBA during all bed/mat mobility and CGA with Sit/Stand. Patient requires parallel bars to push from though when performing sit to stand. Patient is able to step in parallel bars for short distances but requires periods of rest to recover. She will continue to focus on strengthening of the LEs and endurance to improve overall function. Rehab Potential: Fair PT Short Term Goals Short Term Goals Time Frame: Jan 21, 2018 Transfers (B,C,W/C) (FIM): 5 Wheelchair (FIM): 6 Wheelchair distance (FIM): 3=150 ft Wheelchair Distance: 150' Wheelchair Level of Assist: 6 PT Waterworks Operator Goals Waterworks Operator Goals PT Chcf Goals Time Frame: Feb 04, 2018 Transfers (B,C,W/C) (FIM): 6 Sit to Lying (QC): 6 Lying-Sitting on Side/Bed(QC): 6 Sit to Stand (QC): 6 Rollin Roll Left to Right (QC): 6 Chair/Oib-sh-Avrjc Xfer(QC): 6 Car Transfer (QC): 6 Does the Patient Walk: No and Walking Goal NOT indicated Distance: SEE PT GOALS Does the Pt use WC or Scooter?: Yes Wheelchair (FIM): 6 Wheelchair distance (FIM): 3=150 ft Distance: 300' Wheelchair Level of Assist: 6 Wheel 50 feet with 2 turns (QC: 6 PT Plan Problem List Problem List: Activity Tolerance, Functional Strength, Safety, Balance, Gait, Transfer, Bed Mobility, ROM Treatment/Plan Treatment Plan: Continue Plan of Care Treatment Plan: Bed Mobility, Education, Functional Activity Cindy, Functional Strength, Group Therapy, Gait, Safety, Therapeutic Exercise, Transfers Treatment Duration: Feb 04, 2018 Frequency: At least 5 of 7 days/Wk (IRF) Estimated Hrs Per Day: 1.5 hours per day Patient and/or Family Agrees t: Yes Safety Risks/Education Patient Education: Gait Training, Transfer Techniques, Reviewed Precautions, Correct Positioning, W/C Management, Safety Issues Teaching Recipient: Patient Teaching Methods: Demonstration, Discussion Response to Teaching: Reinforcement Needed Discharge Recommendations Plan Patient will perform bed mobility and transfer training, balance and endurance training, functional strengthening, gait training, and education, to improve functional mobility and independence at home. Therapy D/C Recommendations: Home w/ Family Support Time/GCodes Time In: 1000 Time Out: 1115 Total Billed Treatment Time: 75 Total Billed Treatment 1 Visit EVM 30' EX 30' FA 15' IVORY ALCANTAR PT Jan 14, 2018 11:16
--- NOTE | 2018-01-14 13:01 | Occupational Therapy Eval ---
OT Evaluation-General/PLF Medical Diagnosis Admission Date Jan 13, 2018 at 20:15 Medical Diagnosis: General Debility Onset Date: Jan 09, 2018 Therapy Diagnosis Therapy Diagnosis: decreased self care skills Height/Weight Height (Feet): 5 Height (Inches): 8.00 Weight (Pounds): 206 Weight (Ounces): 0.8 Precautions Precautions/Isolations: Fall Prevention, Standard Precautions Safety Interventions: None Referral Physician: Saroj Escalera MD Medical History Pertinent Medical History: Arthritis, Fractures, HTN, OA Additional Medical History Total hip which became infected, was revised and then Girdlestone procedure was completed. Chronic pain, Hep C, bipolar disorder, depression, drug use, osteoporosis, PTSD, TMJ, recurrent UTI, right hand surgery, right shoulder surgery. Social History Home: Single Level Current Living Status: Significant Other Entry Into Home: Ramp, Level Entry Steps Into Home: 0 Steps Inside Home: 0 ADL-Prior Level of Function Therapy Code Descriptions/Definitions Functional [place] Measure: 0=Not Assessed/NA 4=Minimal Assistance 1=Total Assistance 5=Supervision or Setup 2=Maximal Assistance 6=Modified [place] 3=Moderate Assistance 7=Complete [place] Therapy Quality Codes: 6 Independent with activity with or without an assistive device 5 Patient requires set up or clean up by helper. Patient completes activity by themselves 4 Supervision or touching assist (CGA). [place] provide cues , steadying assist 3 The helper provides less than half the effort to complete the activity 2 The helper provides more than half the effort to complete the activity 1 Dependent. The helper does all the effort to complete an activity 7 Patient refused to complete or attempt activity 9 The patient did not perform the activity before the current illness or injury 88 Not attempted due to Medical conditions or safety concerns Functional Abilities and Goals: Independent: Patient completed the activities by him/herself, with or without an assistive device, with no assistance from a helper. Needed Some Help: Patient needed partial assistance from another person to complete activities. Dependent: A helper completed the activities for the patient. Unknown: Not Applicable: ADL PLOF Comments Pt states she has been non-ambulatory for the past 2 years, but is mostly independent at w/c level. Boyfriend does assist with socks sometimes. Pt states she has been completing outpatient PT Self Care: Needed Some Help Functional Cognition: Independent DME/Equipment: Bath Chair (Pt states she has a homemade shower chair.), Grab Bars, Tub/Shower DME/Equipment Comments manual w/c Drive Self: No OT Current Status Subjective Pt in bed, agrees to treatment. Pt reports 8/10 pain in bilateral LE. Mental Status/Objective Patient Orientation: Person, Place, Situation Current Glasses/Contacts: Yes Hearing Aids: No Dentures/Partials: Yes Hand Dominance: Right Upper Extremity ROM Grossly WFL Upper Extremity Coordination Intact Upper Extremity Sensation Intact per pt report Upper Extremity Strength Grossly 4/5 ADL-Treatment ADL-Current Pt requests shower this morning. Supine to sit with SBA. Pt completed a modified stand pivot transfer to w/c with CGA. Pt completed w/c mobility to restroom without assistance. Transfer w/c <-> shower seat with min assist for safety using grab bars for balance. Pt able to wash/dry all areas. CGA for lower body. Pt weight shifts left and right to wash buttocks rather than standing. Don bra and pullover shirt with set up. Pt able to thread bilateral LE into pant legs, requires min assist to pull up over right hip. Pt combed hair with set up. Increased time for ADL tasks. Pt sitting in w/c with PT present after session. Grooming (FIM): 5 Bathing (FIM): 4 Shower/Bathe Self (QC): 4 Upper Body Dressing (FIM): 5 Upper Body Dressing (QC): 5 Lower Body Dressing (FIM): 4 Lower Body Dressing (QC): 3 Shower Transfer (FIM): 4 Education OT Patient Education: Rehab process Teaching Recipient: Patient Teaching Methods: Discussion Response to Teaching: Verbalize Understanding OT Short Term Goals Short Term Goals Time Frame: Jan 21, 2018 Bathing(FIM): 5 Lower Body Dressing(FIM): 5 Toileting(FIM): 5 Toilet/Commode Transfer(FIM): 5 Additional Short Term Goals: 1-Demonstrate ADL Tasks, 2-Verbalize Understanding , 3-ImproveStrength/Cindy 1=Demonstrate adherence to instructed precautions during ADL tasks. 2=Patient will verbalize/demonstrate understanding of assistive devices/ modifications for ADL. 3=Patient will improve strength/tolerance for activity to enable patient to perform ADL's. OT Alf Goals Alf Goals Time Frame: Feb 04, 2018 Eating (FIM): 6 Eating (QC): 6 Groomin Oral Hygiene (QC): 6 Bathing(FIM): 5 Shower/Bathe Self (QC): 5 Upper Body Dressing(FIM): 6 Upper Body Dressing (QC): 6 Lower Body Dressing(FIM): 6 Lower Body Dressing (QC): 6 On/Off Footwear (QC): 6 Toileting(FIM): 6 Toileting Hygiene (QC): 6 Toilet/Commode Transfer(FIM): 6 Toilet/Commode Transfer (QC): 6 Shower Transfer(FIM): 5 Additional Goals: 1-Demonstrate ADL Tasks, 2-Verbalize Understanding, 3- ImproveStrength/Cindy 1=Demonstrate adherence to instructed precautions during ADL tasks. 2=Patient will verbalize/demonstrate understanding of assistive devices/ modifications for ADL. 3=Patient will improve strength/tolerance for activity to enable patient to perform ADL's. Goals established to promote increased independence and allow safe return home. OT Education/Plan Problem List/Assessment Assessment: Decreased Activ Tolerance, Decreased UE Strength, Dependent Transfers, Impaired Self-Care Skills Pt to benefit from skilled OT intervention for ADL training, transfers, strengthening, and home safety education to increase level of independence and allow safe discharge home. Discharge Recommendations Plan/Recommendations: Continue POC Treatment Plan/Plan of Care Treatment,Training & Education: Yes Patient would benefit from OT for education, treatment and training to promote independence in ADL's, mobility, safety and/or upper extremity function for ADL' s. Plan of Care: ADL Retraining, Functional Mobility, Group Exercise/Act as Ind, UE Funct Exercise/Act Treatment Duration: Feb 04, 2018 Frequency: Modified Program (IRF) (24/08) Estimated Hrs Per Day: 1.5 hours per day Rehab Potential: Fair Time/GCodes Start Time: 09:00 Stop Time: 10:00 Total Time Billed (hr/min): 60 Billed Treatment Time 1 visit, EVM(15minutes), ADLx3(45minutes) BETTY HO OT Jan 14, 2018 13:01
--- NOTE | 2018-01-14 14:01 | Occupational Ther Daily Note ---
OT Current Status-Daily Note Subjective Pt sitting in w/c, agrees to treatment. Mental Status/Objective Therapy Code Descriptions/Definitions Functional [place] Measure: 0=Not Assessed/NA 4=Minimal Assistance 1=Total Assistance 5=Supervision or Setup 2=Maximal Assistance 6=Modified [place] 3=Moderate Assistance 7=Complete [place] ADL-Treatment W/c mobility to restroom without assistance. Pt transferred w/c <-> toilet with minimal assistance using grab bar for balance and safety. Pt able to pull pants down and complete toileting hygiene, but requires minimal assistance to pull pants up. Increased time for toilet transfer secondary to fatigue and pain. Washes hands at sink without assistance. Pt demonstrates ability to don slip on shoes with set up. Pt's meal tray is present. Pt demonstrates ability to open containers, cut food, and feed self without assistance. Wears upper and lower dentures. Pt sitting in w/c eating lunch after session. Therapy Code Descriptions/Definitions Functional [place] Measure: 0=Not Assessed/NA 4=Minimal Assistance 1=Total Assistance 5=Supervision or Setup 2=Maximal Assistance 6=Modified [place] 3=Moderate Assistance 7=Complete [place] Therapy Quality Codes: 6 Independent with activity with or without an assistive device 5 Patient requires set up or clean up by helper. Patient completes activity by themselves 4 Supervision or touching assist (CGA). [place] provide cues , steadying assist 3 The helper provides less than half the effort to complete the activity 2 The helper provides more than half the effort to complete the activity 1 Dependent. The helper does all the effort to complete an activity 7 Patient refused to complete or attempt activity 9 The patient did not perform the activity before the current illness or injury 88 Not attempted due to Medical conditions or safety concerns Eating (FIM): 6 Eating (QC): 6 Toileting (FIM): 3 Toileting Hygiene (QC): 3 Toilet/Commode Transfer (FIM): 4 Toilet Transfer (QC): 3 OT Short Term Goals Short Term Goals Time Frame: Jan 21, 2018 Bathing(FIM): 5 Lower Body Dressing(FIM): 5 Toileting(FIM): 5 Toilet/Commode Transfer(FIM): 5 Additional Short Term Goals: 1-Demonstrate ADL Tasks, 2-Verbalize Understanding , 3-ImproveStrength/Cindy 1=Demonstrate adherence to instructed precautions during ADL tasks. 2=Patient will verbalize/demonstrate understanding of assistive devices/ modifications for ADL. 3=Patient will improve strength/tolerance for activity to enable patient to perform ADL's. OT Usp Goals Surface Grinder Tender Goals Time Frame: Feb 04, 2018 Eating (FIM): 6 Eating (QC): 6 Groomin Oral Hygiene (QC): 6 Bathing(FIM): 5 Shower/Bathe Self (QC): 5 Upper Body Dressing(FIM): 6 Upper Body Dressing (QC): 6 Lower Body Dressing(FIM): 6 Lower Body Dressing (QC): 6 On/Off Footwear (QC): 6 Toileting(FIM): 6 Toileting Hygiene (QC): 6 Toilet/Commode Transfer(FIM): 6 Toilet/Commode Transfer (QC): 6 Shower Transfer(FIM): 5 Additional Goals: 1-Demonstrate ADL Tasks, 2-Verbalize Understanding, 3- ImproveStrength/Cindy 1=Demonstrate adherence to instructed precautions during ADL tasks. 2=Patient will verbalize/demonstrate understanding of assistive devices/ modifications for ADL. 3=Patient will improve strength/tolerance for activity to enable patient to perform ADL's. OT Education/Plan Discharge Recommendations Plan/Recommendations: Continue POC Treatment Plan/Plan of Care Patient would benefit from OT for education, treatment and training to promote independence in ADL's, mobility, safety and/or upper extremity function for ADL' s. Plan of Care: ADL Retraining, Functional Mobility, Group Exercise/Act as Ind, UE Funct Exercise/Act Treatment Duration: Feb 04, 2018 Frequency: Modified Program (IRF) (24/08) Estimated Hrs Per Day: 1.5 hours per day Rehab Potential: Fair Time/GCodes Start Time: 11:30 Stop Time: 12:00 Total Time Billed (hr/min): 30 Billed Treatment Time 1 visit, ADLx2(30minutes) BETTY HO OT Jan 14, 2018 14:01
--- NOTE | 2018-01-14 14:05 | Occupational Ther Daily Note ---
OT Current Status-Daily Note Subjective Pt sitting in w/c, agrees to treatment. Mental Status/Objective Therapy Code Descriptions/Definitions Functional [place] Measure: 0=Not Assessed/NA 4=Minimal Assistance 1=Total Assistance 5=Supervision or Setup 2=Maximal Assistance 6=Modified [place] 3=Moderate Assistance 7=Complete [place] ADL-Treatment Pt states dentures are hurting and requests to apply more denture cream. Pt removes upper and lower dentures and applies cream to both. Able to replace dentures without assistance. Washes hands at sink without assist. Increased time for task. Therapy Code Descriptions/Definitions Functional [place] Measure: 0=Not Assessed/NA 4=Minimal Assistance 1=Total Assistance 5=Supervision or Setup 2=Maximal Assistance 6=Modified [place] 3=Moderate Assistance 7=Complete [place] Therapy Quality Codes: 6 Independent with activity with or without an assistive device 5 Patient requires set up or clean up by helper. Patient completes activity by themselves 4 Supervision or touching assist (CGA). [place] provide cues , steadying assist 3 The helper provides less than half the effort to complete the activity 2 The helper provides more than half the effort to complete the activity 1 Dependent. The helper does all the effort to complete an activity 7 Patient refused to complete or attempt activity 9 The patient did not perform the activity before the current illness or injury 88 Not attempted due to Medical conditions or safety concerns Oral Hygiene (QC): 5 Other Treatment Pt performed w/c mobility to therapy gym without assistance. Arm bike [id number] to increase overall strength and activity tolerance needed for functional task completion. Pt performed task with moderate resistance and slow pace. No rest breaks needed. Pt returned to room to complete denture care. Sitting in w/c with needs met after session. OT Short Term Goals Short Term Goals Time Frame: Jan 21, 2018 Bathing(FIM): 5 Lower Body Dressing(FIM): 5 Toileting(FIM): 5 Toilet/Commode Transfer(FIM): 5 Additional Short Term Goals: 1-Demonstrate ADL Tasks, 2-Verbalize Understanding , 3-ImproveStrength/Cindy 1=Demonstrate adherence to instructed precautions during ADL tasks. 2=Patient will verbalize/demonstrate understanding of assistive devices/ modifications for ADL. 3=Patient will improve strength/tolerance for activity to enable patient to perform ADL's. OT Chcf Goals Cloth Designer Goals Time Frame: Feb 04, 2018 Eating (FIM): 6 Eating (QC): 6 Groomin Oral Hygiene (QC): 6 Bathing(FIM): 5 Shower/Bathe Self (QC): 5 Upper Body Dressing(FIM): 6 Upper Body Dressing (QC): 6 Lower Body Dressing(FIM): 6 Lower Body Dressing (QC): 6 On/Off Footwear (QC): 6 Toileting(FIM): 6 Toileting Hygiene (QC): 6 Toilet/Commode Transfer(FIM): 6 Toilet/Commode Transfer (QC): 6 Shower Transfer(FIM): 5 Additional Goals: 1-Demonstrate ADL Tasks, 2-Verbalize Understanding, 3- ImproveStrength/Cindy 1=Demonstrate adherence to instructed precautions during ADL tasks. 2=Patient will verbalize/demonstrate understanding of assistive devices/ modifications for ADL. 3=Patient will improve strength/tolerance for activity to enable patient to perform ADL's. OT Education/Plan Discharge Recommendations Plan/Recommendations: Continue POC Treatment Plan/Plan of Care Patient would benefit from OT for education, treatment and training to promote independence in ADL's, mobility, safety and/or upper extremity function for ADL' s. Plan of Care: ADL Retraining, Functional Mobility, Group Exercise/Act as Ind, UE Funct Exercise/Act Treatment Duration: Feb 04, 2018 Frequency: Modified Program (IRF) (24/08) Estimated Hrs Per Day: 1.5 hours per day Rehab Potential: Fair Time/GCodes Start Time: 13:00 Stop Time: 13:30 Total Time Billed (hr/min): 30 Billed Treatment Time 1 visit, ADL(15minutes), EX(15minutes) BETTY HO OT Jan 14, 2018 14:05
--- NOTE | 2018-01-14 14:31 | PM&R Post Admission Assessment ---
Post Admission Physician Asses Date seen by provider: Jan 14, 2018 Time seen by provider: 08:00 The preadmission screen agrees with the post admission assessment that the patient is a good candidate for inpatient rehabilitation. The patient will have a comprehensive program of inpatient rehabilitation with a goal of maximizing level of functional independence prior to discharge home with SO. The patient will have PT/OT ninety minutes per day, each discipline, five days a week for 2 weeks for gait, strengthening, conditioning, balance, ADLs, any patient/family/caregiver training as necessary. Speech therapy to do cognitive assessment and treat as indicated 3 to 5 times a day for 30-45 min for memory compensation techniques for 2 weeks. Rehabilitation nursing to assist with bowel, bladder, skin, medication administration, pain management. Financial Services Auditor to assist with discharge planning, community reentry. SCD's for DVT prophylaxis. She appears to be well motivated to participate in three hours of therapy a day. She should be able to tolerate three hours of therapy a day from a medical standpoint. She should benefit from the three hours of therapy a day. She has a reasonable discharge plan, reasonable discharge rehabilitation goals and a supportive family. She has various comorbidities that need to be closely monitored with medications and treatments adjusted on a daily basis as needed. 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 Risks for this patient include: 1. Fall 2. Fracture 3. DVT 4. Pulmonary embolism 5. Poorly controlled HTN 6. Skin breakdown 7. Contractures 8. Poorly controlled pain 9. Urinary retention 10. Recurrent UTI 11. Respiratory infection 12. Aspiration 13. Worsening Anxiety Estimated Length of Stay: 14 days Prognosis: Rehab prognosis appears good for goal of discharge home with SO modified independent to supervision for ADLs and mobility skills at the w/c level of function Date Identified: Jan 14, 2018 Time Identified: 13:15 Action Plan to Resolve CSMI: Voltaran gel ordered as adjunct to pain management General: Alert, Oriented X3, Cooperative, No Acute Distress HEENT: Atraumatic, PERRLA, EOMI, Mucous Memb Moist/[place]: Supple, No JVD Lungs: Clear to Auscultation Heart: Regular Rate Abdomen: Normal Bowel Sounds, Soft, No Tenderness Extremities: No Edema Neuro: Other (Weakness both lower limbs Foreshortened RT leg s/p girdlestone procedure ) Psych/Mental Status: Mental Status NL, Other (Mild memory deficit) JW SANFORD MD Jan 14, 2018 14:31
--- NOTE | 2018-01-14 14:43 | Consultation ([facility]) ---
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 She was admitted at with UTI and frequent falls and discharged to IRF for strengthening. Today her only concern is her pain medications, she states she was using fentanyl q48 hours instead of q72. Source: patient Date seen by provider: Jan 14, 2018 Time Seen by Provider: 10:50 Attending Physician Saroj Escalera MD PCP Miguelangel Vaughn MD Consult Date of Admission Jan 13, 2018 at 20:15 Home Medications Home Medications Reviewed patient Home Medication Reconciliation performed by pharmacy medication reconciliations heat treat technician and/or nursing. Patients Allergies have been reviewed. Allergies Coded Allergies: Penicillins (Verified Allergy, Unknown, 01/13/18) sulfamethoxazole (Verified Allergy, Unknown, 01/13/18) trimethoprim (Verified Allergy, Unknown, 01/13/18) [id number] Hx Patient Social History Alcohol Use: Past History Recreational Drug Use: Yes (PAST HISTORY ) Smoking Status: Never a Smoker Former smoker/When Quit: Mar 15, 2014 Recent Foreign Travel: No Contact w/other who traveled: No Recent Hopitalizations: Yes Recent Infectious Disease Expo: No Physical Abuse Screen: No Sexual Abuse: No Immunizations Up To Date Tetanus Booster (TDap): Unknown Date of Influenza Vaccine: Nov 10, 2017 Family Medical History Significant Family History: Heart Disease Family History: FH: breast cancer 19 MOTHER FH: heart disease 19 FATHER Pancreatitis 19 FATHER Review of Systems ([facility]) Constitutional: no symptoms reported EENTM: no symptoms reported Respiratory: no symptoms reported Cardiovascular: no symptoms reported Gastrointestinal: no symptoms reported Genitourinary: no symptoms reported Musculoskeletal: joint pain Skin: no symptoms reported Psychiatric/Neurological: No Symptoms Reported Reviewed Test Results Reviewed Test Results Lab Laboratory Tests Test 01/14/18 06:25 Range/Units White Blood Count 7.9 4.3-11.0 10^3/uL Red Blood Count 4.19 L 4.35-5.85 10^6/uL Hemoglobin 10.4 L 11.5-16.0 G/DL Hematocrit 34 L 35-52 % Mean Corpuscular Volume 81 80-99 FL Mean Corpuscular Hemoglobin 25 25-34 PG Mean Corpuscular Hemoglobin Concent 31 L 32-36 G/DL Red Cell Distribution Width 14.9 H 10.0-14.5 % Platelet Count 543 H 130-400 10^3/uL Mean Platelet Volume 9.5 7.4-10.4 FL Neutrophils (%) (Auto) 59 42-75 % Lymphocytes (%) (Auto) 33 12-44 % Monocytes (%) (Auto) 6 0-12 % Eosinophils (%) (Auto) 2 0-10 % Basophils (%) (Auto) 0 0-10 % Neutrophils # (Auto) 4.7 1.8-7.8 X 10^3 Lymphocytes # (Auto) 2.7 1.0-4.0 X 10^3 Monocytes # (Auto) 0.5 0.0-1.0 X 10^3 Eosinophils # (Auto) 0.1 0.0-0.3 10^3/uL Basophils # (Auto) 0.0 0.0-0.1 10^3/uL Sodium Level 138 135-145 MMOL/L Potassium Level 4.1 3.6-5.0 MMOL/L Chloride Level 102 98-107 MMOL/L Carbon Dioxide Level 25 21-32 MMOL/L Anion Gap 11 5-14 MMOL/L Blood Urea Nitrogen 15 7-18 MG/DL Creatinine 0.80 0.60-1.30 MG/DL Estimat Glomerular Filtration Rate > 60 BUN/Creatinine Ratio 19 Glucose Level 88 70-105 MG/DL Calcium Level 10.0 8.5-10.1 MG/DL Corrected Calcium 10.7 H 8.5-10.1 MG/DL Total Bilirubin 0.3 0.1-1.0 MG/DL Aspartate Amino Transf (AST/SGOT) 23 5-34 U/L Alanine Aminotransferase (ALT/SGPT) 13 0-55 U/L Alkaline Phosphatase 138 H 40-136 U/L Total Protein 9.4 H 6.4-8.2 GM/DL Albumin 3.1 L 3.2-4.5 GM/DL Physical [facility] Physical Exam Vital Signs VS - Last 72 Hours, by Label 01/13/18 01/13/18 01/14/18 01/14/18 20:40 20:52 05:06 08:00 Temp 98.0 97.8 Pulse 76 80 Resp 16 16 B/P (MAP) 118/78 (91) 128/67 (87) Pulse Ox 100 95 95 O2 Delivery Room Air Room Air Room Air Room Air Capillary Refill : General Appearance: no apparent distress Respiratory: No accessory muscle use Neurologic/Psychiatric: alert, normal mood/affect Skin: normal color, warm/dry Assessment/Plan Assessment/Plan (1) Chronic right hip pain Status: Chronic Assessment & Plan: Secondary to 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 History of polysubstance abuse, reported last use years ago. On chronic opiates. Will review clinic records before making any dose adjustments in fentanyl. (2) Hypertension Status: Chronic Assessment & Plan: Resume home medications. Qualifiers: Qualified Codes: I10 - Essential (primary) hypertension (3) Hepatitis C Status: Chronic Assessment & Plan: Alk phos elevated, monitor CMP. Qualifiers: (4) Mood disorder Status: Chronic Assessment & Plan: Resume home fluoxetine. (5) Anxiety Status: Chronic Assessment & Plan: On chronic benzo, consider taper given risks of chronic benzo and opiate combination and her recurrent falls. (6) GERD (gastroesophageal reflux disease) Status: Chronic Assessment & Plan: Resume home PPI (7) Migraines Status: Chronic Assessment & Plan: Home triptan prn. (8) Anemia Status: Chronic Assessment & Plan: Stable Qualifiers: Qualified Codes: D63.8 - Anemia in other chronic diseases classified elsewhere Clinical Quality Measures DVT/VTE Risk/Contraindication: Risk Factor Score Per Nursin RFS Level Per Nursing on Admit: 3=High IRENE VIGIL MD Jan 14, 2018 14:43
--- NOTE | 2018-01-14 14:46 | PM & R (SOAP) Progress Note ---
Subjective This was a face to face visit with the patient. Date Seen by Provider: Jan 14, 2018 Time Seen by Provider: 08:00 Subjective/Events-last exam Patient was seen in her room this AM Patient Min assist for transfersPatient c/ o breakthrough pain current meds reviewed case discussed with RN and staff at team conference Voltaren gel ordered-trying to avoid muscle relaxants and Opioids ON D patch for sustained relief Date Identified: Jan 14, 2018 Time Identified: 13:00 Medication Intervention: Voltaren gel as per above Review of Systems Musculoskeletal: back pain, leg pain Objective Physician Exam Last Set of Vital Signs Vital Signs Date Time Temp Pulse Resp B/P (MAP) Pulse Ox O2 Delivery O2 Flow Rate FiO2 01/14/18 08:00 95 Room Air 01/14/18 05:06 97.8 80 16 128/67 (87) Capillary Refill : I&O Intake and Output 01/14/18 00:00 Daily Weight Change No General: Alert, Oriented X3, Cooperative, No Acute Distress HEENT: Atraumatic, PERRLA, EOMI, Mucous Memb Moist/[place] Neck: Supple, No JVD Lungs: Clear to Auscultation Heart: Regular Rate Abdomen: Normal Bowel Sounds, Soft, No Tenderness Extremities: No Edema Neuro: Other (Weakness both lower limbs Foreshortened RT leg s/p girdlestone procedure ) Psych/Mental Status: Mental Status NL, Other (Mild memory deficit) Results Lab Data Laboratory Tests 01/14/18 06:25: White Blood Count 7.9, Red Blood Count 4.19L, Hemoglobin 10.4L, Hematocrit 34L, Mean Corpuscular Volume 81, Mean Corpuscular Hemoglobin 25, Mean Corpuscular Hemoglobin Concent 31L, Red Cell Distribution Width 14.9H, Platelet Count 543H, Mean Platelet Volume 9.5, Neutrophils (%) (Auto) 59, Lymphocytes (%) (Auto) 33, Monocytes (%) (Auto) 6, Eosinophils (%) (Auto) 2, Basophils (%) (Auto) 0, Neutrophils # (Auto) 4.7, Lymphocytes # (Auto) 2.7, Monocytes # (Auto) 0.5, Eosinophils # (Auto) 0.1, Basophils # (Auto) 0.0, Sodium Level 138, Potassium Level 4.1, Chloride Level 102, Carbon Dioxide Level 25, Anion Gap 11, Blood Urea Nitrogen 15, Creatinine 0.80, Estimat Glomerular Filtration Rate > 60, BUN/ Creatinine Ratio 19, Glucose Level 88, Calcium Level 10.0, Corrected Calcium 10.7H, Total Bilirubin 0.3, Aspartate Amino Transf (AST/SGOT) 23, Alanine Aminotransferase (ALT/SGPT) 13, Alkaline Phosphatase 138H, Total Protein 9.4H, Albumin 3.1L Assessment/Plan Assessment and Plan general debil secondary to falls and chronic pain with rt leg foreshortening and leg length discrepancy s/p Girdlestone procedure for infected rt hip hardware s/p removal Chronic pain UTI treated HX of MRSA septic rt THR HTN Anemia HX of substance abuse Anxiety on klonopin TID Plan Continue PT/OT Team Conference held earlier today see report for full functional update and POC and ELOS F/U with DR Mckeon at [facility] Co-Morbidities that are continuing to impact the rehab process: (include details ) JW SANFORD MD Jan 14, 2018 14:46
--- NOTE | 2018-01-14 14:58 | Physical Therapy Daily Note ---
PT Daily Note-Current Subjective Pt up in visiting with staff when PT arrived. Pt agreed to go to therapy gym for exercise. Pain Numeric Pain Scale: 0-No Pain Location: No Pain Reported Mental Status Patient Orientation: Normal For Age Transfers Therapy Code Descriptions/Definitions Functional [place] Measure: 0=Not Assessed/NA 4=Minimal Assistance 1=Total Assistance 5=Supervision or Setup 2=Maximal Assistance 6=Modified [place] 3=Moderate Assistance 7=Complete [place] Therapy Quality Codes: 6 Independent with activity with or without an assistive device 5 Patient requires set up or clean up by helper. Patient completes activity by themselves 4 Supervision or touching assist (CGA). [place] provide cues , steadying assist 3 The helper provides less than half the effort to complete the activity 2 The helper provides more than half the effort to complete the activity 1 Dependent. The helper does all the effort to complete an activity 7 Patient refused to complete or attempt activity 9 The patient did not perform the activity before the current illness or injury 88 Not attempted due to Medical conditions or safety concerns Transfers (B, C, W/C) (FIM): 4 Scootin Rollin Supine to/from Sit: 5 Sit to/from Stand: 4 Weight Bearing Right Lower Extremity: Right Full Weight Bearing Left Lower Extremity: Left Full Weight Bearing Wheelchair Training Does the Pt Use a Wheelchair?: Yes Wheelchair (FIM): 5 Wheelchair Distance: 3=150 ft Distance: 150' Wheelchair Level of Assist: 5 Wheel 50 ft with 2 turns (QC): 5 Wheel 150 ft (QC): 5 Type of Wheelchair: Manual Exercises Supine Ex: Quad Set, Heel Slides Supine Reps: 20 Standing: Sit to Stand Standing Reps: 10 Assessment Current Status: Fair Progress Patient is able to transfer from to mat for exercises requiring CGA. Patient is SBA for bed/mat mobility and able to perform heel slides and quad sets. Patient practiced sit to stand x 10 with CGA in parallel bars before completing therapy on [facility]. Patient completed 15 mins at a level 6 workload before being left with OT. PT Short Term Goals Short Term Goals Time Frame: Jan 21, 2018 Wheelchair (FIM): 6 Wheelchair distance (FIM): 3=150 ft Wheelchair Distance: 150' Wheelchair Level of Assist: 6 PT Personal Development Mentor Goals [facility] Goals PT [facility] Goals Time Frame: Feb 04, 2018 Transfers (B,C,W/C) (FIM): 6 Sit to Lying (QC): 6 Lying-Sitting on Side/Bed(QC): 6 Sit to Stand (QC): 6 Rollin Roll Left to Right (QC): 6 Chair/Rqn-rh-Gmtlv Xfer(QC): 6 Car Transfer (QC): 6 Does the Patient Walk: No and Walking Goal NOT indicated Distance: SEE PT GOALS Does the Pt use WC or Scooter?: Yes Wheelchair (FIM): 6 Wheelchair distance (FIM): 3=150 ft Distance: 300' Wheelchair Level of Assist: 6 Wheel 50 feet with 2 turns (QC: 6 PT Plan Problem List Problem List: Activity Tolerance, Functional Strength, Safety, Balance, Gait, Transfer, Bed Mobility Treatment/Plan Treatment Plan: Continue Plan of Care Treatment Plan: Bed Mobility, Education, Functional Activity Cindy, Functional Strength, Group Therapy, Gait, Safety, Therapeutic Exercise, Transfers Treatment Duration: Feb 04, 2018 Frequency: At least 5 of 7 days/Wk (IRF) Estimated Hrs Per Day: 1.5 hours per day Patient and/or Family Agrees t: Yes Safety Risks/Education Patient Education: Transfer Techniques, Correct Positioning, Safety Issues Teaching Recipient: Patient Teaching Methods: Demonstration, Discussion Response to Teaching: Reinforcement Needed Time/GCodes Time In: 1418 Time Out: 1510 Total Billed Treatment Time: 52 Total Billed Treatment 1 Visit EX x 2 - 30 FA- 22 IVORY ALCANTAR PT Jan 14, 2018 14:58
--- NOTE | 2018-01-14 15:39 | Occupational Ther Daily Note ---
OT Current Status-Daily Note Subjective Pt in therapy gym after working with PT, agrees to treatment. Pt reports 7/10 bilateral hip pain Mental Status/Objective Therapy Code Descriptions/Definitions Functional [place] Measure: 0=Not Assessed/NA 4=Minimal Assistance 1=Total Assistance 5=Supervision or Setup 2=Maximal Assistance 6=Modified [place] 3=Moderate Assistance 7=Complete [place] ADL-Treatment Therapy Code Descriptions/Definitions Functional [place] Measure: 0=Not Assessed/NA 4=Minimal Assistance 1=Total Assistance 5=Supervision or Setup 2=Maximal Assistance 6=Modified [place] 3=Moderate Assistance 7=Complete [place] Therapy Quality Codes: 6 Independent with activity with or without an assistive device 5 Patient requires set up or clean up by helper. Patient completes activity by themselves 4 Supervision or touching assist (CGA). [place] provide cues , steadying assist 3 The helper provides less than half the effort to complete the activity 2 The helper provides more than half the effort to complete the activity 1 Dependent. The helper does all the effort to complete an activity 7 Patient refused to complete or attempt activity 9 The patient did not perform the activity before the current illness or injury 88 Not attempted due to Medical conditions or safety concerns Other Treatment Pt completed bilateral UE exercises to increase strength needed for ADLs and transfers. Pt performed shoulder flexion, abduction, biceps curls, and triceps extension exercises x15 reps with moderate resistance (red) theraband. Rest breaks taken between exercises. Occasional cues for proper exercise technique. Pt propelled w/c back to room without assist. Sitting in w/c with needs met after session. OT Short Term Goals Short Term Goals Time Frame: Jan 21, 2018 Bathing(FIM): 5 Lower Body Dressing(FIM): 5 Toileting(FIM): 5 Toilet/Commode Transfer(FIM): 5 Additional Short Term Goals: 1-Demonstrate ADL Tasks, 2-Verbalize Understanding , 3-ImproveStrength/Cindy 1=Demonstrate adherence to instructed precautions during ADL tasks. 2=Patient will verbalize/demonstrate understanding of assistive devices/ modifications for ADL. 3=Patient will improve strength/tolerance for activity to enable patient to perform ADL's. OT Correction Goals [place] [facility] Goals Time Frame: Feb 04, 2018 Eating (FIM): 6 Eating (QC): 6 Groomin Oral Hygiene (QC): 6 Bathing(FIM): 5 Shower/Bathe Self (QC): 5 Upper Body Dressing(FIM): 6 Upper Body Dressing (QC): 6 Lower Body Dressing(FIM): 6 Lower Body Dressing (QC): 6 On/Off Footwear (QC): 6 Toileting(FIM): 6 Toileting Hygiene (QC): 6 Toilet/Commode Transfer(FIM): 6 Toilet/Commode Transfer (QC): 6 Shower Transfer(FIM): 5 Additional Goals: 1-Demonstrate ADL Tasks, 2-Verbalize Understanding, 3- ImproveStrength/Cindy 1=Demonstrate adherence to instructed precautions during ADL tasks. 2=Patient will verbalize/demonstrate understanding of assistive devices/ modifications for ADL. 3=Patient will improve strength/tolerance for activity to enable patient to perform ADL's. OT Education/Plan Discharge Recommendations Plan/Recommendations: Continue POC Treatment Plan/Plan of Care Patient would benefit from OT for education, treatment and training to promote independence in ADL's, mobility, safety and/or upper extremity function for ADL' s. Plan of Care: ADL Retraining, Functional Mobility, Group Exercise/Act as Ind, UE Funct Exercise/Act Treatment Duration: Feb 04, 2018 Frequency: Modified Program (IRF) (24/08) Estimated Hrs Per Day: 1.5 hours per day Rehab Potential: Fair Time/GCodes Start Time: 15:10 Stop Time: 15:30 Total Time Billed (hr/min): 20 Billed Treatment Time 1 visit, EX(20minutes) BETTY HO OT Jan 14, 2018 15:39
[2018-01-14 17:20] VITALS: BP 116/79
[2018-01-14] MEDS: cloNIDine 0.1 MG (CATAPRES) TAB PO SCH (20:26)
[2018-01-15] MEDS: BETHANECHOL 10 MG (URECHOLINE) TAB PO SCH ×3 (05:06→15:09)
[2018-01-15] MEDS: IBUPROFEN 600 MG (MOTRIN) TAB PO SCH ×3 (05:07→16:45)
[2018-01-15 05:21] VITALS: BP 114/82
[2018-01-15 07:02] LABS: ALANINE AMINOTRANSFERASE 15 U/L (0-55); ALKALINE PHOSPHATASE 133 U/L (40-136); BILIRUBIN,TOTAL 0.3 MG/DL (0.1-1.0); BUN/CREATININE RATIO 25; CALCIUM 9.9 MG/DL (8.5-10.1); CARBON DIOXIDE 23 MMOL/L (21-32); CHLORIDE 104 MMOL/L (98-107); CREATININE SERUM 0.76 MG/DL (0.60-1.30); GFR ESTIMATED > 60; GLUCOSE 93 MG/DL (70-105); POTASSIUM 4.2 MMOL/L (3.6-5.0); SODIUM 139 MMOL/L (135-145); TOTAL PROTEIN 8.9 GM/DL (6.4-8.2)
[2018-01-15] MEDS: cloNIDine 0.1 MG (CATAPRES) TAB PO SCH ×2 (08:31→20:46)
[2018-01-15] MEDS: FLUoxetine HCL 20 MG (PROzac) CAP PO SCH (08:32)
[2018-01-15] MEDS: DICLOFENAC 1% GEL 100 GM (VOLTAREN) TUBE TOP PRN ×2 (08:32→14:35)
[2018-01-15] MEDS: SENNA W/DOCUSATE (SENOKOT S) TABLET PO SCH (08:32)
[2018-01-15] MEDS: clonazePAM 1 MG (KlonoPIN) TAB PO SCH ×3 (08:33→20:46)
[2018-01-15] MEDS: PREGABALIN 75 MG (LYRICA) CAP PO SCH ×3 (08:33→20:46)
[2018-01-15] MEDS: ASPIRIN E.C. 81 MG (ECOTRIN) TAB PO SCH (08:33)
--- NOTE | 2018-01-15 11:00 | Physical Therapy Daily Note ---
PT Daily Note-Current Subjective Patient in wheelchair pre tx, agrees to PT, states she has 8/10 pain in both hips and thighs. Appearance Patient in wheelchair post tx, she is mod I with wheelchair mobility and can wheel around the unit on her own. Mental Status Patient Orientation: Person, Place Transfers Therapy Code Descriptions/Definitions Functional [place] Measure: 0=Not Assessed/NA 4=Minimal Assistance 1=Total Assistance 5=Supervision or Setup 2=Maximal Assistance 6=Modified [place] 3=Moderate Assistance 7=Complete [place] Therapy Quality Codes: 6 Independent with activity with or without an assistive device 5 Patient requires set up or clean up by helper. Patient completes activity by themselves 4 Supervision or touching assist (CGA). [place] provide cues , steadying assist 3 The helper provides less than half the effort to complete the activity 2 The helper provides more than half the effort to complete the activity 1 Dependent. The helper does all the effort to complete an activity 7 Patient refused to complete or attempt activity 9 The patient did not perform the activity before the current illness or injury 88 Not attempted due to Medical conditions or safety concerns Transfers (B, C, W/C) (FIM): 3 Scootin Rollin Supine to/from Sit: 3 Bed to/from Chair: 5 Patient needs mod assist with sit to supine with getting both legs into bed. Weight Bearing Right Lower Extremity: Right Full Weight Bearing Left Lower Extremity: Left Full Weight Bearing Wheelchair Training Wheelchair (FIM): 6 Distance: 150'x2 Type of Wheelchair: Manual Exercises Supine Ex: Ankle pumps, Quad Set, Glut sets, Heel Slides, Straight leg raise, Hip abd/add Supine Reps: 20 NuStep Minutes: 10 NuStep Workload: 5 Treatments wheelchair mobility, functional strengthening, bed mobility and transfers Assessment Current Status: Fair Progress improving transfers PT Short Term Goals Short Term Goals Time Frame: Jan 21, 2018 Wheelchair (FIM): 6 Wheelchair distance (FIM): 3=150 ft Wheelchair Distance: 150' Wheelchair Level of Assist: 6 PT Alf Goals Alf Goals PT Alf Goals Time Frame: Feb 04, 2018 Transfers (B,C,W/C) (FIM): 6 Sit to Lying (QC): 6 Lying-Sitting on Side/Bed(QC): 6 Sit to Stand (QC): 6 Rollin Roll Left to Right (QC): 6 Chair/Its-zr-Gdxwd Xfer(QC): 6 Car Transfer (QC): 6 Does the Patient Walk: No and Walking Goal NOT indicated Distance: SEE PT GOALS Does the Pt use WC or Scooter?: Yes Wheelchair (FIM): 6 Wheelchair distance (FIM): 3=150 ft Distance: 300' Wheelchair Level of Assist: 6 Wheel 50 feet with 2 turns (QC: 6 PT Plan Problem List Problem List: Activity Tolerance, Functional Strength, Safety, Balance, Gait, Transfer, Bed Mobility, ROM Treatment/Plan Treatment Plan: Continue Plan of Care Treatment Plan: Bed Mobility, Education, Functional Activity Cindy, Functional Strength, Group Therapy, Gait, Safety, Therapeutic Exercise, Transfers Treatment Duration: Feb 04, 2018 Frequency: At least 5 of 7 days/Wk (IRF) Estimated Hrs Per Day: 1.5 hours per day Patient and/or Family Agrees t: Yes Safety Risks/Education Patient Education: Transfer Techniques, Correct Positioning, W/C Management, Safety Issues Teaching Recipient: Patient Teaching Methods: Demonstration, Discussion Response to Teaching: Reinforcement Needed Time/GCodes Time In: 1015 Time Out: 1100 Total Billed Treatment Time: 45 Total Billed Treatment 1 visit FA 10' EX 35' IVORY ALCANTAR PT Jan 15, 2018 11:00
--- NOTE | 2018-01-15 11:17 | Occupational Ther Daily Note ---
OT Current Status-Daily Note Subjective Pt seen in room, up in recliner, agreeable to OT. Pain in hips rated 8/10. Appearance Alert, cooperative Mental Status/Objective Therapy Code Descriptions/Definitions Functional [place] Measure: 0=Not Assessed/NA 4=Minimal Assistance 1=Total Assistance 5=Supervision or Setup 2=Maximal Assistance 6=Modified [place] 3=Moderate Assistance 7=Complete [place] ADL-Treatment Pt reported that she took herself to the shower this morning, without calling for assist. She also dressed herself and cleaned her teeth, as well as braided her hair. Pt requested to call for help with transfers and ADLs until released to be up ad adams in her room. She agreed. Therapy Code Descriptions/Definitions Functional [place] Measure: 0=Not Assessed/NA 4=Minimal Assistance 1=Total Assistance 5=Supervision or Setup 2=Maximal Assistance 6=Modified [place] 3=Moderate Assistance 7=Complete [place] Therapy Quality Codes: 6 Independent with activity with or without an assistive device 5 Patient requires set up or clean up by helper. Patient completes activity by themselves 4 Supervision or touching assist (CGA). [place] provide cues , steadying assist 3 The helper provides less than half the effort to complete the activity 2 The helper provides more than half the effort to complete the activity 1 Dependent. The helper does all the effort to complete an activity 7 Patient refused to complete or attempt activity 9 The patient did not perform the activity before the current illness or injury 88 Not attempted due to Medical conditions or safety concerns Other Treatment [facility] with [facility]BA. She propelled herself to the gym and positioned herself at the table, with cue to lock brakes. Pt completed 12 minutes bilat UE ex on arm bike set at 15W resistance, working at a steady pace and with no breaks. She also completed nuts and bolts activity with 1# weight on each arm. Both activities to strengthen arms to help with transfers and mobility. Pt took herself back to her room, all needs met. Education OT Patient Education: Exercise program, Progress toward Goal/Update tx plan, Purpose of tx/functional activities, Safety issues Teaching Recipient: Patient Teaching Methods: Discussion Response to Teaching: Verbalize Understanding, Return Demonstration, Reinforcement Needed OT Short Term Goals Short Term Goals Time Frame: Jan 21, 2018 Bathing(FIM): 5 Lower Body Dressing(FIM): 5 Toileting(FIM): 5 Toilet/Commode Transfer(FIM): 5 Additional Short Term Goals: 1-Demonstrate ADL Tasks, 2-Verbalize Understanding , 3-ImproveStrength/Cindy 1=Demonstrate adherence to instructed precautions during ADL tasks. 2=Patient will verbalize/demonstrate understanding of assistive devices/ modifications for ADL. 3=Patient will improve strength/tolerance for activity to enable patient to perform ADL's. OT Paper Machine Back Tender Goals Correction Goals Time Frame: Feb 04, 2018 Eating (FIM): 6 Eating (QC): 6 Groomin Oral Hygiene (QC): 6 Bathing(FIM): 5 Shower/Bathe Self (QC): 5 Upper Body Dressing(FIM): 6 Upper Body Dressing (QC): 6 Lower Body Dressing(FIM): 6 Lower Body Dressing (QC): 6 On/Off Footwear (QC): 6 Toileting(FIM): 6 Toileting Hygiene (QC): 6 Toilet/Commode Transfer(FIM): 6 Toilet/Commode Transfer (QC): 6 Shower Transfer(FIM): 5 Additional Goals: 1-Demonstrate ADL Tasks, 2-Verbalize Understanding, 3- ImproveStrength/Cindy 1=Demonstrate adherence to instructed precautions during ADL tasks. 2=Patient will verbalize/demonstrate understanding of assistive devices/ modifications for ADL. 3=Patient will improve strength/tolerance for activity to enable patient to perform ADL's. OT Education/Plan Discharge Recommendations Plan/Recommendations: Continue POC Treatment Plan/Plan of Care Patient would benefit from OT for education, treatment and training to promote independence in ADL's, mobility, safety and/or upper extremity function for ADL' s. Plan of Care: ADL Retraining, Functional Mobility, Group Exercise/Act as Ind, UE Funct Exercise/Act Treatment Duration: Feb 04, 2018 Frequency: Modified Program (IRF) (24/08) Estimated Hrs Per Day: 1.5 hours per day Rehab Potential: Fair Time/GCodes Start Time: 09:00 Stop Time: 10:00 Total Time Billed (hr/min): 60 Billed Treatment Time visit, 60 minutes exercise JAMEL YAÑEZ OT Jan 15, 2018 11:17
--- NOTE | 2018-01-15 12:56 | PM & R (SOAP) Progress Note ---
Subjective This was a face to face visit with the patient. Date Seen by Provider: Jan 15, 2018 Time Seen by Provider: 11:45 Subjective/Events-last exam Patient was seen in her room this AM Patient c/o 8 out of 10 pain when lying down but in NAD Self propels her litewt w/c Independently on unit Requesting opioid for breakthrough pain as she goes thru Therapies Date Identified: Jan 15, 2018 Time Identified: 11:45 Medication Intervention: Oxyir for breakthorugh pain as she goes thru rehab Review of Systems Musculoskeletal: back pain, leg pain Objective Physician Exam Last Set of Vital Signs Vital Signs Date Time Temp Pulse Resp B/P (MAP) Pulse Ox O2 Delivery O2 Flow Rate FiO2 01/15/18 09:00 Room Air 01/15/18 05:21 97.5 78 16 114/82 (93) 98 Capillary Refill : I&O Intake and Output 01/15/18 00:00 Intake Total 1080 ml Balance 1080 ml Intake Oral 1080 ml # Voids 7 General: Alert, Oriented X3, Cooperative, No Acute Distress HEENT: Atraumatic, PERRLA, EOMI, Mucous Memb Moist/[place] Neck: Supple, No JVD Lungs: Clear to Auscultation Heart: Regular Rate Abdomen: Normal Bowel Sounds, Soft, No Tenderness Extremities: No Edema Neuro: Other (Weakness both lower limbs Foreshortened RT leg s/p girdlestone procedure ) Psych/Mental Status: Mental Status NL, Other (Mild memory deficit) Results Lab Data Laboratory Tests 01/14/18 06:25: White Blood Count 7.9, Red Blood Count 4.19L, Hemoglobin 10.4L, Hematocrit 34L, Mean Corpuscular Volume 81, Mean Corpuscular Hemoglobin 25, Mean Corpuscular Hemoglobin Concent 31L, Red Cell Distribution Width 14.9H, Platelet Count 543H, Mean Platelet Volume 9.5, Neutrophils (%) (Auto) 59, Lymphocytes (%) (Auto) 33, Monocytes (%) (Auto) 6, Eosinophils (%) (Auto) 2, Basophils (%) (Auto) 0, Neutrophils # (Auto) 4.7, Lymphocytes # (Auto) 2.7, Monocytes # (Auto) 0.5, Eosinophils # (Auto) 0.1, Basophils # (Auto) 0.0, Sodium Level 138, Potassium Level 4.1, Chloride Level 102, Carbon Dioxide Level 25, Anion Gap 11, Blood Urea Nitrogen 15, Creatinine 0.80, Estimat Glomerular Filtration Rate > 60, BUN/ Creatinine Ratio 19, Glucose Level 88, Calcium Level 10.0, Corrected Calcium 10.7H, Total Bilirubin 0.3, Aspartate Amino Transf (AST/SGOT) 23, Alanine Aminotransferase (ALT/SGPT) 13, Alkaline Phosphatase 138H, Total Protein 9.4H, Albumin 3.1L 01/15/18 06:30: Sodium Level 139, Potassium Level 4.2, Chloride Level 104, Carbon Dioxide Level 23, Anion Gap 12, Blood Urea Nitrogen 19H, Creatinine 0.76, Estimat Glomerular Filtration Rate > 60, BUN/Creatinine Ratio 25, Glucose Level 93, Calcium Level 9.9, Corrected Calcium 10.7H, Total Bilirubin 0.3, Aspartate Amino Transf (AST/ SGOT) 23, Alanine Aminotransferase (ALT/SGPT) 15, Alkaline Phosphatase 133, Total Protein 8.9H, Albumin 3.0L Assessment/Plan Assessment and Plan general debil secondary to falls and chronic pain with rt leg foreshortening and leg length discrepancy s/p Girdlestone procedure for infected rt hip hardware removal Chronic Pain UTI treated HX of MRSA septic rt THR HTN Anemia HX of substance abuse Anxiety on Klonopin Plan Continue PT/OT/Pain management Discharge set for 01-21-18 Adjust pain meds see orders Co-Morbidities that are continuing to impact the rehab process: (include details ) JW SANFORD MD Jan 15, 2018 12:56
--- NOTE | 2018-01-15 13:12 | Individualized Plan of Care ---
Individualized Plan of Care Rehab Nursing IPOC Order Admission Date Jan 13, 2018 at 20:15 Current Orders Orders Follow-Up Appointment (01/13/18 16:22) Admission Order(Inpt,Obs,Sdc) (01/13/18 20:46) Vital Signs: Routine (Order) 08,16,00 (01/13/18 20:46) Sequential Compression Device 08,20 (01/13/18 20:46) Junior Accountant-Inpt Rehab Con (01/13/18 20:46) Rehab Nursing Orders-Ipoc (01/13/18 20:46) Physical Therapy Rehab Orders (01/13/18 20:46) Occupational Therapy Rehab Ord (01/13/18 20:46) Speech Therapy Rehab Orders (01/13/18 20:46) General/Regular (01/14/18 Breakfast) Turn And Reposition Q2HR (01/13/18 20:46) Intake & Output 06,14,22 (01/13/18 20:46) Precautions (Aru) (01/13/18 20:46) Weekly Weight (Lbs) WEEK (01/13/18 20:46) Code/Resuscitation (01/13/18 20:46) Initiate Admission Nursing Pro .admission (01/13/18 20:46) Senna S Tablet (Senokot S Tablet) (01/14/18 09:00) Clonidine Tablet (Catapres Tablet) (01/13/18 21:00) Aspirin Enteric Coated Tablet (Ecotrin T (01/14/18 09:00) Bethanechol Tablet (Urecholine Tablet) (01/14/18 06:00) Clonazepam Tablet (Klonopin Tablet) (01/13/18 21:00) Fentanyl Patch (Duragesic Patch) (01/13/18 21:00) Fluoxetine Capsule (Prozac Capsule) (01/14/18 09:00) Pregabalin Capsule (Lyrica Capsule) (01/13/18 21:00) Sumatriptan Tablet (Imitrex Tablet) (01/13/18 21:00) Pharmacy Communication (Pharmacy Communi (01/13/18 21:00) Consult Physician (01/13/18 21:03) Cbc With Automated Diff (01/14/18 06:00) Comprehensive Metabolic Panel (01/14/18 06:00) Fentanyl Patch (Duragesic Patch) (01/16/18 09:00) Pregabalin Capsule (Lyrica Capsule) (01/13/18 21:43) Pregabalin Capsule (Lyrica Capsule) (01/13/18 21:48) Ibuprofen Tablet (Motrin Tablet) (01/14/18 07:00) Diclofenac 1% Gel (Voltaren 1% Gel) (01/14/18 10:30) Patient Visit (01/14/18 ) Speech Sound Lang Comp (01/14/18 ) Patient Visit (01/14/18 ) Pt Eval Moderate Complexity (01/14/18 ) Exercise Therap, Ea 15 Min (01/14/18 ) Functional Activities, Ea 15 (01/14/18 ) Clonidine Tablet (Catapres Tablet) (01/14/18 21:00) Comprehensive Metabolic Panel (01/15/18 06:00) Patient Visit (01/14/18 ) Exercise Therap, Ea 15 Min (01/14/18 ) Functional Activities, Ea 15 (01/14/18 ) Oxycodone Immediate Rel Tablet (Oxyir Ta (01/15/18 13:00) Rehab Nursing Orders: Ongoing Assess. of Cognitive Status, Ongoing Assess. of Function Status, Disease Management & Educaiton, DVT Prophylaxis, Fall Prevention, Fluid/Electrolyte/Nutrition Mgmt, Infection Prevention, Medication Management & Education, Management of Risks & Complications, Management of Skin Intergrity, Nutrition Management, Pain Management, Patient/Family Support PT IPOC Problem List: Activity Tolerance, Functional Strength, Safety, Balance, Gait, Transfer, Bed Mobility, ROM Treatment Plan: Continue Plan of Care Bed Mobility, Education, Functional Activity Cindy, Functional Strength, Group Therapy, Gait, Safety, Therapeutic Exercise, Transfers Treatment Duration: Feb 04, 2018 Frequency: At least 5 of 7 days/Wk (IRF) Estimated Hrs Per Day: 1.5 hours per day OT IPOC Problems: Decreased Activ Tolerance, Decreased UE Strength, Dependent Transfers , Impaired Self-Care Skills OT Treatment, Training and Edu: Yes Plan of Care: ADL Retraining, Functional Mobility, Group Exercise/Act as Ind, UE Funct Exercise/Act Treatment Duration: Feb 04, 2018 Frequency: Modified Program (IRF) (24/08) Estimated Hrs Per Day: 1.[address] IPOC Speech Therapy Treatment Plan: Continue Plan of Care Treatment Duration: Jan 14, 2018 Frequency: 5 times per week Estimated Hrs Per Day: .5 hour per day Junior Accountant/Case Mgmt Junior Accountant/Case Managemen: Discharge Planning, Patient/Family Counseling Dietitian/Ruching Machine Operator Dietitian/Ruching Machine Operator to monitor nutritional status and make changes and/or recommendations as needed and work with speech pathology on dietary upgrades as the occur. Physician IPOC Medical Issues being managed closely and that require the 24 hour availability of a physician: Pain Management HTN MRSA HX of substance abuse Anxiety [facility] code 16 Etiologic DX Other abnormalities of gait Medical Issues: DVT Prophylaxis, Falls Precautions, Fluid/Electrolyte/ Nutrition Balance, Infection Protection, Pain Management, Other (List) (as per above) Brief Synthesis of Preadmission Screen, Post-Admission Evaluation, and Therapy Evaluations:52 yo female with chronic pain syndrome who has a hx of recurrent falls admitted to an OSH for treatment of exacerbation of pain and adjustment of meds with some tapering Pain management handled by DR Vaughn on an outpatient basis Patient had been Independent at the w/c level prior to this due to orthopedic issues [facility] Medical Prognosis: good Anticipated Length of Stay: 18 return to PLOF-Modified Independent at w/c level of function with decreased pain med usage Anticipated d/c Destination: Home with SO JW SANFORD MD Jan 15, 2018 13:12
--- NOTE | 2018-01-15 14:38 | Therapy Group Daily Note ---
Therapy Daily Group Note Patient Education Topic Other List Below (memory) Exercises LE Seated Exercise, UE Exercise Other/Notes Pt ambulated with CGA using [facility] gym <-->room for OT group. Group consisted of introductions (name, place living, reason for being in ARU), socialization, ARU description, LE/UE seated exercises, memory education/strategies and memory activities. Pt appropriately introduced self and actively listened to peers. Pt verbalized understanding of educational topics and was able to contribute to conversations. Pt answered questions about memory and was able to use strategies to complete tasks. Tolerated and complete UE/LE seated exercises. After therapy, pt sitting in w/c with call light/phone in reach. All needs met in room. Start Time: 13:00 Stop Time: 14:10 Total Billed Treatment Time: 70 Total Billed Treatment 1-GRP POLINA SAM Jan 15, 2018 14:38
--- NOTE | 2018-01-15 15:26 | Speech Therapy Daily Note ---
Speech Daily Progress Note Subjective Date Seen by Provider: Jan 15, 2018 Time Seen by Provider: 00:30 Patient awake and alert with good task participation. Objective Patient completed following directions exercises with 80% completion given min to mod repetitions. Assessment Assessment Current Status: Good Progress Treatment Plan Continue Plan of Care Communication Comprehension: 5 Expression: 5 Social Cognition Social Interaction: 5 Problem Solvin Memory: 3 Speech Short Term Goals Short Term Goals Short Term Goals 1) Patient will choose appropriate definitions for linguistic terms, with 90% or greater accuracy. 2) Patient will demonstrate memory for safety procedures, with 90% or greater accuracy. 3) Patient will be able to complete problem solving tasks, with 90% or greater accuracy. Speech Fdc Goals Perch Mender Goals Patient will improve her memory and problem solving skills for safety awareness and independence to safely return home. Speech-Plan Patient/Family Goals Patient/Family Goals: Patient will return home with her significant other when she completes rehab. Treatment Plan Speech Therapy Treatment Plan: Continue Plan of Care Patient increased in alert level today. Treatment Duration: Jan 14, 2018 Frequency: 5 times per week Estimated Hrs Per Day: .5 hour per day Rehab Potential: Fair Safety Risks/Education Teaching Recipient: Patient Teaching Methods: Discussion Response to Teaching: Verbalize Understanding Time Speech Therapy Time In: 14:05 Speech Therapy Time Out: 14:35 Total Billed Time: 30 Billed Treatment Time 1CHAPINCITO BETHAN[address] ST Jan 15, 2018 15:26
[2018-01-15 15:27] VITALS: BP 112/74
--- NOTE | 2018-01-15 15:27 | Physical Therapy Daily Note ---
PT Daily Note-Current Subjective Agreeble to chair exercises. Transfers Therapy Code Descriptions/Definitions Functional Manning Measure: 0=Not Assessed/NA 4=Minimal Assistance 1=Total Assistance 5=Supervision or Setup 2=Maximal Assistance 6=Modified Manning 3=Moderate Assistance 7=Complete Manning Therapy Quality Codes: 6 Independent with activity with or without an assistive device 5 Patient requires set up or clean up by helper. Patient completes activity by themselves 4 Supervision or touching assist (CGA). [place] provide cues , steadying assist 3 The helper provides less than half the effort to complete the activity 2 The helper provides more than half the effort to complete the activity 1 Dependent. The helper does all the effort to complete an activity 7 Patient refused to complete or attempt activity 9 The patient did not perform the activity before the current illness or injury 88 Not attempted due to Medical conditions or safety concerns Weight Bearing Right Lower Extremity: Right Full Weight Bearing Left Lower Extremity: Left Full Weight Bearing Treatments Chair ther ex with legs elevated to include AP, HS, hip abduct, QS, SAQ and GS all x 15 each. Required assist to complete heel slide and hip abduct on the right. Assessment Weakness right hip girdle, as expected. PT Short Term Goals Short Term Goals Time Frame: Jan 21, 2018 Wheelchair (FIM): 6 Wheelchair distance (FIM): 3=150 ft Wheelchair Distance: 150'x2 Wheelchair Level of Assist: 6 PT Drier Tender Goals Care Home Goals PT Care Home Goals Time Frame: Feb 04, 2018 Transfers (B,C,W/C) (FIM): 6 Sit to Lying (QC): 6 Lying-Sitting on Side/Bed(QC): 6 Sit to Stand (QC): 6 Rollin Roll Left to Right (QC): 6 Chair/[id number]-Izqlc Xfer(QC): 6 Car Transfer (QC): 6 Does the Patient Walk: No and Walking Goal NOT indicated Distance: SEE PT GOALS Does the Pt use WC or Scooter?: Yes Wheelchair (FIM): 6 Wheelchair distance (FIM): 3=150 ft Distance: 300' Wheelchair Level of Assist: 6 Wheel 50 feet with 2 turns (QC: 6 PT Plan Problem List Problem List: Activity Tolerance, Functional Strength, Safety Treatment/Plan Treatment Plan: Continue Plan of Care Treatment Plan: Bed Mobility, Education, Functional Activity Cindy, Functional Strength, Group Therapy, Gait, Safety, Therapeutic Exercise, Transfers Treatment Duration: Feb 04, 2018 Frequency: At least 5 of 7 days/Wk (IRF) Estimated Hrs Per Day: 1.5 hours per day Patient and/or Family Agrees t: Yes Safety Risks/Education Patient Education: Safety Issues Teaching Recipient: Patient Teaching Methods: Discussion Response to Teaching: Reinforcement Needed (1) Time/GCodes Time In: 1510 Time Out: 1525 Total Billed Treatment Time: 15 Total Billed Treatment visit EX 15 POLINA NOLAND PT Jan 15, 2018 15:27
[2018-01-16 05:31] VITALS: BP 124/84
[2018-01-16] MEDS: IBUPROFEN 600 MG (MOTRIN) TAB PO SCH ×3 (06:13→16:09)
[2018-01-16] MEDS: BETHANECHOL 10 MG (URECHOLINE) TAB PO SCH ×3 (06:13→16:09)
--- NOTE | 2018-01-16 09:23 | Occupational Ther Daily Note ---
OT Current Status-Daily Note Subjective Pt sitting in w/c, agrees to therapy. Pt reports 8/10 bilateral hip pain. Mental Status/Objective Therapy Code Descriptions/Definitions Functional Ford Measure: 0=Not Assessed/NA 4=Minimal Assistance 1=Total Assistance 5=Supervision or Setup 2=Maximal Assistance 6=Modified [place] 3=Moderate Assistance 7=Complete Ford ADL-Treatment Pt completed ADL tasks at w/c level. Pt placed applied denture cream and placed dentures in mouth without assistance. Brushed hair with modified independence. Pt retrieved clothing from closet without assistance at w/c level. Doff/don shirt with modified independence. Pt doffed/donned pants with SBA. Donned socks and shoes with SBA. Pt transferred w/c <-> toilet with SBA using grab bars for safety. Pt able to completed toileting hygiene and clothing management with SBA. Washed hands at sink with modified independence. Increased time for ADL tasks. Pt sitting in w/c with needs met and PT present after session. Therapy Code Descriptions/Definitions Functional [place] Measure: 0=Not Assessed/NA 4=Minimal Assistance 1=Total Assistance 5=Supervision or Setup 2=Maximal Assistance 6=Modified [place] 3=Moderate Assistance 7=Complete [place] Therapy Quality Codes: 6 Independent with activity with or without an assistive device 5 Patient requires set up or clean up by helper. Patient completes activity by themselves 4 Supervision or touching assist (CGA). [place] provide cues , steadying assist 3 The helper provides less than half the effort to complete the activity 2 The helper provides more than half the effort to complete the activity 1 Dependent. The helper does all the effort to complete an activity 7 Patient refused to complete or attempt activity 9 The patient did not perform the activity before the current illness or injury 88 Not attempted due to Medical conditions or safety concerns Grooming (FIM): 6 Oral Hygiene (QC): 6 Upper Body (FIM): 6 Upper Body Dressing (QC): 6 Lower Body Dressing (FIM): 5 Lower Body Dressing (QC): 4 Toileting (FIM): 5 Toileting Hygiene (QC): 4 Toilet/Commode Transfer (FIM): 5 Toilet Transfer (QC): 4 OT Short Term Goals Short Term Goals Time Frame: Jan 21, 2018 Bathing(FIM): 5 Lower Body Dressing(FIM): 5 Toileting(FIM): 5 Toilet/Commode Transfer(FIM): 5 Additional Short Term Goals: 1-Demonstrate ADL Tasks, 2-Verbalize Understanding , 3-ImproveStrength/Cindy 1=Demonstrate adherence to instructed precautions during ADL tasks. 2=Patient will verbalize/demonstrate understanding of assistive devices/ modifications for ADL. 3=Patient will improve strength/tolerance for activity to enable patient to perform ADL's. OT Snf Goals Needle Loom Tender Goals Time Frame: Feb 04, 2018 Eating (FIM): 6 Eating (QC): 6 Groomin Oral Hygiene (QC): 6 Bathing(FIM): 5 Shower/Bathe Self (QC): 5 Upper Body Dressing(FIM): 6 Upper Body Dressing (QC): 6 Lower Body Dressing(FIM): 6 Lower Body Dressing (QC): 6 On/Off Footwear (QC): 6 Toileting(FIM): 6 Toileting Hygiene (QC): 6 Toilet/Commode Transfer(FIM): 6 Toilet/Commode Transfer (QC): 6 Shower Transfer(FIM): 5 Additional Goals: 1-Demonstrate ADL Tasks, 2-Verbalize Understanding, 3- ImproveStrength/Cindy 1=Demonstrate adherence to instructed precautions during ADL tasks. 2=Patient will verbalize/demonstrate understanding of assistive devices/ modifications for ADL. 3=Patient will improve strength/tolerance for activity to enable patient to perform ADL's. OT Education/Plan Discharge Recommendations Plan/Recommendations: Continue POC Treatment Plan/Plan of Care Patient would benefit from OT for education, treatment and training to promote independence in ADL's, mobility, safety and/or upper extremity function for ADL' s. Plan of Care: ADL Retraining, Functional Mobility, Group Exercise/Act as Ind, UE Funct Exercise/Act Treatment Duration: Feb 04, 2018 Frequency: Modified Program (IRF) (24/08) Estimated Hrs Per Day: 1.5 hours per day Rehab Potential: Fair Time/GCodes Start Time: 08:00 Stop Time: 09:00 Total Time Billed (hr/min): 60 Billed Treatment Time 1 visit, ADLx4(60minutes) BETTY HO OT Jan 16, 2018 09:23
--- NOTE | 2018-01-16 09:57 | Physical Therapy Daily Note ---
PT Daily Note-Current Subjective Patient in wheelchair pre tx, agrees to PT, no complaints of pain at rest. Appearance Patient in wheelchair post tx. Mental Status Patient Orientation: Person, Place, Situation Transfers Therapy Code Descriptions/Definitions Functional Wells Measure: 0=Not Assessed/NA 4=Minimal Assistance 1=Total Assistance 5=Supervision or Setup 2=Maximal Assistance 6=Modified [place] 3=Moderate Assistance 7=Complete [place] Therapy Quality Codes: 6 Independent with activity with or without an assistive device 5 Patient requires set up or clean up by helper. Patient completes activity by themselves 4 Supervision or touching assist (CGA). [place] provide cues , steadying assist 3 The helper provides less than half the effort to complete the activity 2 The helper provides more than half the effort to complete the activity 1 Dependent. The helper does all the effort to complete an activity 7 Patient refused to complete or attempt activity 9 The patient did not perform the activity before the current illness or injury 88 Not attempted due to Medical conditions or safety concerns Transfers (B, C, W/C) (FIM): 4 Scootin Rollin Supine to/from Sit: 4 Sit to/from Stand: 5 Bed to/from Chair: 5 Patient needs min assist for sit to supine, can insurance territory manager the parallel bars with SBA. Weight Bearing Right Lower Extremity: Right Full Weight Bearing Left Lower Extremity: Left Full Weight Bearing Gait Training Gait (FIM): 1 Distance: 8'x4 Gait Level of Assist: 5 Gait Persons Needed: 1 Gait Assistive Device: Parallel Bars Patient ambulated 8' forward and back in the parallel bars x4 with SBA. No LOB but she has pain with weight bearing on the right leg. Exercises Supine Ex: Ankle pumps, Quad Set, Glut sets, Heel Slides, Short Arc Quads, Straight leg raise, Hip abd/add Supine Reps: 20 LAQ alternating for 5 min with 2# ankle weights Treatments bed mobility and transfers, ambulation, functional strengthening Assessment Current Status: Fair Progress improving ambulation, will probably start using a rolling walker next week PT Short Term Goals Short Term Goals Time Frame: Jan 21, 2018 Wheelchair (FIM): 6 Wheelchair distance (FIM): 3=150 ft Wheelchair Distance: 150'x2 Wheelchair Level of Assist: 6 PT Jail Goals Jail Goals PT Telegraph Dispatcher Goals Time Frame: Feb 04, 2018 Transfers (B,C,W/C) (FIM): 6 Sit to Lying (QC): 6 Lying-Sitting on Side/Bed(QC): 6 Sit to Stand (QC): 6 Rollin Roll Left to Right (QC): 6 Chair/Hrs-tk-Hvgvm Xfer(QC): 6 Car Transfer (QC): 6 Does the Patient Walk: No and Walking Goal NOT indicated Distance: SEE PT GOALS Does the Pt use WC or Scooter?: Yes Wheelchair (FIM): 6 Wheelchair distance (FIM): 3=150 ft Distance: 300' Wheelchair Level of Assist: 6 Wheel 50 feet with 2 turns (QC: 6 PT Plan Problem List Problem List: Activity Tolerance, Functional Strength, Safety, Balance, Gait, Transfer, Bed Mobility, ROM Treatment/Plan Treatment Plan: Continue Plan of Care Treatment Plan: Bed Mobility, Education, Functional Activity Cindy, Functional Strength, Group Therapy, Gait, Safety, Therapeutic Exercise, Transfers Treatment Duration: Feb 04, 2018 Frequency: At least 5 of 7 days/Wk (IRF) Estimated Hrs Per Day: 1.5 hours per day Patient and/or Family Agrees t: Yes Safety Risks/Education Patient Education: Gait Training, Transfer Techniques, Correct Positioning, Safety Issues Teaching Recipient: Patient Teaching Methods: Demonstration, Discussion Response to Teaching: Reinforcement Needed Time/GCodes Time In: 0900 Time Out: 1000 Total Billed Treatment Time: 60 Total Billed Treatment 1 visit GT 30' EX 30' IVORY ALCANTAR PT Jan 16, 2018 09:57
[2018-01-16] MEDS: PREGABALIN 75 MG (LYRICA) CAP PO SCH ×3 (09:58→20:15)
[2018-01-16] MEDS: ASPIRIN E.C. 81 MG (ECOTRIN) TAB PO SCH (09:58)
[2018-01-16] MEDS: clonazePAM 1 MG (KlonoPIN) TAB PO SCH ×3 (09:58→20:15)
[2018-01-16] MEDS: fentaNYL PATCH 50 MCG (DURAGESIC) TD SCH (09:59)
[2018-01-16] MEDS: cloNIDine 0.1 MG (CATAPRES) TAB PO SCH ×2 (09:59→20:15)
[2018-01-16] MEDS: FLUoxetine HCL 20 MG (PROzac) CAP PO SCH (09:59)
[2018-01-16] MEDS: SENNA W/DOCUSATE (SENOKOT S) TABLET PO SCH (09:59)
--- NOTE | 2018-01-16 12:21 | Speech Therapy Daily Note ---
Speech Daily Progress Note Subjective Date Seen by Provider: Jan 16, 2018 Time Seen by Provider: 00:30 Patient pleasant and cooperative. Objective Patient completed memory tasks with 80% accuracy given minimal cues. Assessment Assessment Current Status: Good Progress Treatment Plan Continue Plan of Care Communication Comprehension: 5 Expression: 5 Social Cognition Social Interaction: 5 Problem Solvin Memory: 3 Speech Short Term Goals Short Term Goals Short Term Goals 1) Patient will choose appropriate definitions for linguistic terms, with 90% or greater accuracy. 2) Patient will demonstrate memory for safety procedures, with 90% or greater accuracy. 3) Patient will be able to complete problem solving tasks, with 90% or greater accuracy. Speech Beam Builder Helper Goals Beam Builder Helper Goals Patient will improve her memory and problem solving skills for safety awareness and independence to safely return home. Speech-Plan Patient/Family Goals Patient/Family Goals: Patient plans to move home with her significant other post rehab. Treatment Plan Speech Therapy Treatment Plan: Continue Plan of Care Patient is progressing well with speech therapy. Treatment Duration: Jan 23, 2018 Frequency: 5 times per week Estimated Hrs Per Day: .5 hour per day Rehab Potential: Good Barriers to Learning: Patient is on pain medicine which may interfere with her retention of new information. Pt/Family Agrees to Plan: Yes Safety Risks/Education Teaching Recipient: Patient Teaching Methods: Discussion Response to Teaching: Verbalize Understanding Education Topics Provided: Safety and communication of needs/wants. Time Speech Therapy Time In: 10:45 Speech Therapy Time Out: 11:15 Total Billed Time: 30 Billed Treatment Time 1[address]AP[address] Jan 16, 2018 12:21
--- NOTE | 2018-01-16 14:50 | Therapy Group Daily Note ---
Therapy Daily Group Note Patient Education Topic Other List Below (ARU orientation, exercise benefits) Exercises LE Seated Exercise, UE Exercise Other/Notes Pt propelled self to ARU commons area for OT/PT group. Group consisted of introductions (name, place living, icebreaker questions), benefits of exercise, peer led UE/LE seated exercises and orientation to ARU. Pt introduced self appropriately actively listened to peers introduce themselves. Pt was able to read exercise card and lead peers in an exercise then completed others without difficulty. Pt was able to answer icebreaker questions after rolling/throwing [employer]: Words on Demando dice. Pt asked appropriate questions to peers. Verbalized understanding of educational topics. After group, pt sitting in recliner with call light/ phone in reach. All needs met in room. Start Time: 13:00 Stop Time: 14:20 Total Billed Treatment Time: 90 Total Billed Treatment 1-GRP POLINA SAM Jan 16, 2018 14:50
[2018-01-16 17:28] VITALS: BP 144/86
[2018-01-17 05:14] VITALS: BP 119/80
[2018-01-17] MEDS: IBUPROFEN 600 MG (MOTRIN) TAB PO SCH ×3 (05:55→16:21)
[2018-01-17] MEDS: BETHANECHOL 10 MG (URECHOLINE) TAB PO SCH ×3 (05:55→16:21)
--- NOTE | 2018-01-17 08:03 | PM & R (SOAP) Progress Note ---
Subjective This was a face to face visit with the patient. Date Seen by Provider: Jan 17, 2018 Time Seen by Provider: 07:50 Subjective/Events-last exam Patient was seen in her room this AM Pain control much improved with adjustment in meds Patient SBA for transfers Review of Systems Musculoskeletal: back pain, leg pain Objective Physician Exam Last Set of Vital Signs Vital Signs Date Time Temp Pulse Resp B/P (MAP) Pulse Ox O2 Delivery O2 Flow Rate FiO2 01/17/18 05:14 96.9 78 18 119/80 (93) 96 Room Air Capillary Refill : I&O Intake and Output 01/17/18 00:00 Intake Total 1610 ml Balance 1610 ml Intake Oral 1610 ml # Voids 6 # Bowel Movements 2 General: Alert, Oriented X3, Cooperative, No Acute Distress HEENT: Atraumatic, PERRLA, EOMI, Mucous Memb Moist/[place] Neck: Supple, No JVD Lungs: Clear to Auscultation Heart: Regular Rate Abdomen: Normal Bowel Sounds, Soft, No Tenderness Extremities: No Edema Neuro: Other (Weakness both lower limbs Foreshortened RT leg s/p girdlestone procedure ) Psych/Mental Status: Mental Status NL, Other (Mild memory deficit) Results Lab Data Laboratory Tests 01/15/18 06:30: Sodium Level 139, Potassium Level 4.2, Chloride Level 104, Carbon Dioxide Level 23, Anion Gap 12, Blood Urea Nitrogen 19H, Creatinine 0.76, Estimat Glomerular Filtration Rate > 60, BUN/Creatinine Ratio 25, Glucose Level 93, Calcium Level 9.9, Corrected Calcium 10.7H, Total Bilirubin 0.3, Aspartate Amino Transf (AST/ SGOT) 23, Alanine Aminotransferase (ALT/SGPT) 15, Alkaline Phosphatase 133, Total Protein 8.9H, Albumin 3.0L Assessment/Plan Assessment and Plan general debil secondary to Recurrent falls and chronic pain Chronic pain HTN meds adjusted Plan Continue PT/OT Discharge tentatively set for 01-21-18 Co-Morbidities that are continuing to impact the rehab process: (include details ) JW SANFORD MD Jan 17, 2018 08:03
[2018-01-17] MEDS: clonazePAM 1 MG (KlonoPIN) TAB PO SCH ×3 (08:29→20:35)
[2018-01-17] MEDS: SENNA W/DOCUSATE (SENOKOT S) TABLET PO SCH (08:29)
[2018-01-17] MEDS: PREGABALIN 75 MG (LYRICA) CAP PO SCH ×3 (08:29→20:36)
[2018-01-17] MEDS: ASPIRIN E.C. 81 MG (ECOTRIN) TAB PO SCH (08:29)
[2018-01-17] MEDS: FLUoxetine HCL 20 MG (PROzac) CAP PO SCH (08:29)
[2018-01-17] MEDS: cloNIDine 0.1 MG (CATAPRES) TAB PO SCH (08:33)
--- NOTE | 2018-01-17 09:20 | Physical Therapy Daily Note ---
PT Daily Note-Current Subjective Agrees to rx. States she just took a pain pill and prefers not to walk today secondary to pain. Pain Numeric Pain Scale: 5-Moderate Pain Location: Right Location Body Site: Hip Pain Description: Ache Mental Status Patient Orientation: Person, Place, Time, Situation Transfers Therapy Code Descriptions/Definitions Functional [place] Measure: 0=Not Assessed/NA 4=Minimal Assistance 1=Total Assistance 5=Supervision or Setup 2=Maximal Assistance 6=Modified [place] 3=Moderate Assistance 7=Complete [place] Therapy Quality Codes: 6 Independent with activity with or without an assistive device 5 Patient requires set up or clean up by helper. Patient completes activity by themselves 4 Supervision or touching assist (CGA). [place] provide cues , steadying assist 3 The helper provides less than half the effort to complete the activity 2 The helper provides more than half the effort to complete the activity 1 Dependent. The helper does all the effort to complete an activity 7 Patient refused to complete or attempt activity 9 The patient did not perform the activity before the current illness or injury 88 Not attempted due to Medical conditions or safety concerns Transfers (B, C, W/C) (FIM): 5 Scootin Rollin Supine to/from Sit: 6 Sit to/from Stand: 5 Weight Bearing Right Lower Extremity: Right Full Weight Bearing Left Lower Extremity: Left Full Weight Bearing Wheelchair Training Does the Pt Use a Wheelchair?: Yes Wheelchair (FIM): 6 Wheelchair Distance: 3=150 ft (175x2) Wheelchair Level of Assist: 6 Type of Wheelchair: Manual Exercises Standing: Hip Abduction, Marching, Weight shifts Standing Reps: 12 (small limited ROM) standing in ll bars x 3 for 45 sec to 1 min ea trial, indep with w/c Assessment Current Status: Good Progress PT Short Term Goals Short Term Goals Time Frame: Jan 21, 2018 Wheelchair (FIM): 6 Wheelchair distance (FIM): 3=150 ft Wheelchair Distance: 150'x2 Wheelchair Level of Assist: 6 PT Group Home Goals Trash Collector Supervisor Goals PT Trash Collector Supervisor Goals Time Frame: Feb 04, 2018 Transfers (B,C,W/C) (FIM): 6 Sit to Lying (QC): 6 Lying-Sitting on Side/Bed(QC): 6 Sit to Stand (QC): 6 Rollin Roll Left to Right (QC): 6 Chair/Mev-dk-Badnm Xfer(QC): 6 Car Transfer (QC): 6 Does the Patient Walk: No and Walking Goal NOT indicated Distance: SEE PT GOALS Does the Pt use WC or Scooter?: Yes Wheelchair (FIM): 6 Wheelchair distance (FIM): 3=150 ft Distance: 300' Wheelchair Level of Assist: 6 Wheel 50 feet with 2 turns (QC: 6 PT Plan Treatment/Plan Treatment Plan: Continue Plan of Care Treatment Plan: Bed Mobility, Education, Functional Activity Cindy, Functional Strength, Group Therapy, Gait, Safety, Therapeutic Exercise, Transfers Treatment Duration: Feb 04, 2018 Frequency: At least 5 of 7 days/Wk (IRF) Estimated Hrs Per Day: 1.5 hours per day Patient and/or Family Agrees t: Yes Safety Risks/Education Patient Education: Transfer Techniques Teaching Recipient: Patient Teaching Methods: Demonstration, Discussion Response to Teaching: Verbalize Understanding, Return Demonstration, Reinforcement Needed Time/GCodes Time In: 855 Time Out: 915 Total Billed Treatment Time: 20 Total Billed Treatment 1,FA20m G Codes Necessary: FEI Dewey PTA Jan 17, 2018 09:20
[2018-01-17 17:05] VITALS: BP 121/65
[2018-01-18] MEDS: BETHANECHOL 10 MG (URECHOLINE) TAB PO SCH ×3 (05:04→15:58)
[2018-01-18] MEDS: IBUPROFEN 600 MG (MOTRIN) TAB PO SCH ×3 (05:05→16:24)
[2018-01-18 05:13] VITALS: BP 110/72
[2018-01-18] MEDS: PREGABALIN 75 MG (LYRICA) CAP PO SCH ×3 (08:32→17:48)
[2018-01-18] MEDS: clonazePAM 1 MG (KlonoPIN) TAB PO SCH ×3 (08:32→17:47)
[2018-01-18] MEDS: FLUoxetine HCL 20 MG (PROzac) CAP PO SCH (08:32)
[2018-01-18] MEDS: SENNA W/DOCUSATE (SENOKOT S) TABLET PO SCH (08:33)
[2018-01-18] MEDS: ASPIRIN E.C. 81 MG (ECOTRIN) TAB PO SCH (08:33)
[2018-01-18 17:39] VITALS: BP 135/93
[2018-01-19 05:30] VITALS: BP 117/79
[2018-01-19] MEDS: IBUPROFEN 600 MG (MOTRIN) TAB PO SCH ×3 (06:31→16:20)
[2018-01-19] MEDS: BETHANECHOL 10 MG (URECHOLINE) TAB PO SCH ×3 (06:31→16:20)
[2018-01-19] MEDS: clonazePAM 1 MG (KlonoPIN) TAB PO SCH ×3 (08:22→20:17)
[2018-01-19] MEDS: SENNA W/DOCUSATE (SENOKOT S) TABLET PO SCH (08:23)
[2018-01-19] MEDS: PREGABALIN 75 MG (LYRICA) CAP PO SCH ×3 (08:23→20:18)
[2018-01-19] MEDS: fentaNYL PATCH 50 MCG (DURAGESIC) TD SCH (08:23)
[2018-01-19] MEDS: ASPIRIN E.C. 81 MG (ECOTRIN) TAB PO SCH (08:23)
[2018-01-19] MEDS: FLUoxetine HCL 20 MG (PROzac) CAP PO SCH (08:23)
--- NOTE | 2018-01-19 09:58 | Physical Therapy Daily Note ---
PT Daily Note-Current Subjective Patient sitting EOB pre tx, agrees to PT, no complaints of pain. Appearance Patient in wheelchair post tx, she is mod I with wheelchair mobility. Mental Status Patient Orientation: Person, Place, Situation Transfers Therapy Code Descriptions/Definitions Functional [place] Measure: 0=Not Assessed/NA 4=Minimal Assistance 1=Total Assistance 5=Supervision or Setup 2=Maximal Assistance 6=Modified [place] 3=Moderate Assistance 7=Complete [place] Therapy Quality Codes: 6 Independent with activity with or without an assistive device 5 Patient requires set up or clean up by helper. Patient completes activity by themselves 4 Supervision or touching assist (CGA). [place] provide cues , steadying assist 3 The helper provides less than half the effort to complete the activity 2 The helper provides more than half the effort to complete the activity 1 Dependent. The helper does all the effort to complete an activity 7 Patient refused to complete or attempt activity 9 The patient did not perform the activity before the current illness or injury 88 Not attempted due to Medical conditions or safety concerns Transfers (B, C, W/C) (FIM): 4 Scootin Rollin Supine to/from Sit: 4 Sit to/from Stand: 5 Bed to/from Chair: 6 Patient performs transfers from chair to bed with mod I but needs min assist to get leg into bed. Weight Bearing Right Lower Extremity: Right Full Weight Bearing Left Lower Extremity: Left Full Weight Bearing Exercises Supine Ex: Ankle pumps, Quad Set, Glut sets, Heel Slides, Straight leg raise, Hip abd/add Supine Reps: 20 NuStep Minutes: 15 NuStep Workload: 4 Treatments bed mobility and transfers, functional strengthening, patient toileted once also Assessment Current Status: Fair Progress improving transfers PT Short Term Goals Short Term Goals Time Frame: Jan 21, 2018 Wheelchair (FIM): 6 Wheelchair distance (FIM): 3=150 ft Wheelchair Distance: 150'x2 Wheelchair Level of Assist: 6 PT Ends Breakage Clerk Goals Ends Breakage Clerk Goals PT Ends Breakage Clerk Goals Time Frame: Feb 04, 2018 Transfers (B,C,W/C) (FIM): 6 Sit to Lying (QC): 6 Lying-Sitting on Side/Bed(QC): 6 Sit to Stand (QC): 6 Rollin Roll Left to Right (QC): 6 Chair/Wxg-co-Pqmbz Xfer(QC): 6 Car Transfer (QC): 6 Does the Patient Walk: No and Walking Goal NOT indicated Distance: SEE PT GOALS Does the Pt use WC or Scooter?: Yes Wheelchair (FIM): 6 Wheelchair distance (FIM): 3=150 ft Distance: 300' Wheelchair Level of Assist: 6 Wheel 50 feet with 2 turns (QC: 6 PT Plan Problem List Problem List: Activity Tolerance, Functional Strength, Safety, Balance, Gait, Transfer, Bed Mobility, ROM Treatment/Plan Treatment Plan: Continue Plan of Care Treatment Plan: Bed Mobility, Education, Functional Activity Cindy, Functional Strength, Group Therapy, Gait, Safety, Therapeutic Exercise, Transfers Treatment Duration: Feb 04, 2018 Frequency: At least 5 of 7 days/Wk (IRF) Estimated Hrs Per Day: 1.5 hours per day Patient and/or Family Agrees t: Yes Safety Risks/Education Patient Education: Transfer Techniques, Correct Positioning, Safety Issues Teaching Recipient: Patient Teaching Methods: Demonstration, Discussion Response to Teaching: Reinforcement Needed Time/GCodes Time In: 0900 Time Out: 1000 Total Billed Treatment Time: 60 Total Billed Treatment 1 visit EX 40', FA 20' IVORY ALCANTAR PT Jan 19, 2018 09:58
--- NOTE | 2018-01-19 11:56 | Occupational Ther Daily Note ---
OT Current Status-Daily Note Subjective Pt seen in room, up in recliner, agreeable to OT. No pain mentioned. Appearance Alert, cooperative Mental Status/Objective Therapy Code Descriptions/Definitions Functional [place] Measure: 0=Not Assessed/NA 4=Minimal Assistance 1=Total Assistance 5=Supervision or Setup 2=Maximal Assistance 6=Modified [place] 3=Moderate Assistance 7=Complete [place] ADL-Treatment She transferred from recliner to w/c with just a cue to lock brakes on w/c. Propelled herself to the bathroom to shower. Undressed in chair without help. Transferred on and off shower bench with SBA, using grab bar. Washed and dried all parts, turning water on herself and retrieving towels. Dressed in w/c and shower, standing with grab bar and, at times, without UE support. She had retrieved clean clothing. Socks and shoes on with cue to lock brakes of w/c. Completed grooming at sink without help, w/c level. All ADLs took longer than usual. Pt reported being more confident with the strength in her legs. Discussed using a transfer tub bench at home for transferring into he bath tub but she said that she had had a bad experience with one and was not interested Therapy Code Descriptions/Definitions Functional [place] Measure: 0=Not Assessed/NA 4=Minimal Assistance 1=Total Assistance 5=Supervision or Setup 2=Maximal Assistance 6=Modified [place] 3=Moderate Assistance 7=Complete [place] Therapy Quality Codes: 6 Independent with activity with or without an assistive device 5 Patient requires set up or clean up by helper. Patient completes activity by themselves 4 Supervision or touching assist (CGA). [place] provide cues , steadying assist 3 The helper provides less than half the effort to complete the activity 2 The helper provides more than half the effort to complete the activity 1 Dependent. The helper does all the effort to complete an activity 7 Patient refused to complete or attempt activity 9 The patient did not perform the activity before the current illness or injury 88 Not attempted due to Medical conditions or safety concerns Grooming (FIM): 6 (w/c level, at sink, extra time) Bathing (FIM): 5 (Washed and dried all parts. Turned water on and off herself and retrieved towels. SBA to stand to dry bottom, using grab bars) Upper Body (FIM): 6 (Doffed and donned clothing, w/c level to retrieve clothes) Lower Body Dressing (FIM): 5 (Doffed and donned clothing, with SBA when standing to pull pants up. Cue to lock brakes when putting on shoes and socks. ) Shower Transfer(FIM): 5 (SBA from w/c to shower bench and back, using grab bars ) Other Treatment Pt propelled herself to the gym, per w/c. Completed 14 minutes bilat UE exercise on arm bike set at 20W resistance. Also completed peg activity with 1# weight on each arm. Both to strengthen arms to help with transfers and standing during ADLs. Pt took herself back to her room per w/c, all needs met. Education OT Patient Education: Progress toward Goal/Update tx plan, Purpose of tx/ functional activities, Safety issues, Transfer techniques Teaching Recipient: Patient Teaching Methods: Discussion Response to Teaching: Verbalize Understanding, Return Demonstration, Reinforcement Needed OT Short Term Goals Short Term Goals Time Frame: Jan 21, 2018 Bathing(FIM): 5 Lower Body Dressing(FIM): 5 Toileting(FIM): 5 Toilet/Commode Transfer(FIM): 5 Additional Short Term Goals: 1-Demonstrate ADL Tasks, 2-Verbalize Understanding , 3-ImproveStrength/Cindy 1=Demonstrate adherence to instructed precautions during ADL tasks. 2=Patient will verbalize/demonstrate understanding of assistive devices/ modifications for ADL. 3=Patient will improve strength/tolerance for activity to enable patient to perform ADL's. OT Snf Goals Motor Assembler Goals Time Frame: Feb 04, 2018 Eating (FIM): 6 Eating (QC): 6 Groomin Oral Hygiene (QC): 6 Bathing(FIM): 5 Shower/Bathe Self (QC): 5 Upper Body Dressing(FIM): 6 Upper Body Dressing (QC): 6 Lower Body Dressing(FIM): 6 Lower Body Dressing (QC): 6 On/Off Footwear (QC): 6 Toileting(FIM): 6 Toileting Hygiene (QC): 6 Toilet/Commode Transfer(FIM): 6 Toilet/Commode Transfer (QC): 6 Shower Transfer(FIM): 5 Additional Goals: 1-Demonstrate ADL Tasks, 2-Verbalize Understanding, 3- ImproveStrength/Cindy 1=Demonstrate adherence to instructed precautions during ADL tasks. 2=Patient will verbalize/demonstrate understanding of assistive devices/ modifications for ADL. 3=Patient will improve strength/tolerance for activity to enable patient to perform ADL's. OT Education/Plan Discharge Recommendations Plan/Recommendations: Continue POC Treatment Plan/Plan of Care Patient would benefit from OT for education, treatment and training to promote independence in ADL's, mobility, safety and/or upper extremity function for ADL' s. Plan of Care: ADL Retraining, Functional Mobility, Group Exercise/Act as Ind, UE Funct Exercise/Act Treatment Duration: Feb 04, 2018 Frequency: Modified Program (IRF) (24/08) Estimated Hrs Per Day: 1.5 hours per day Rehab Potential: Good Time/GCodes Start Time: 10:00 Stop Time: 11:30 Total Time Billed (hr/min): 90 Billed Treatment Time visit, 55 minutes ADL, 35 minutes exercise JAMEL YAÑEZ OT Jan 19, 2018 11:56
--- NOTE | 2018-01-19 14:51 | Physical Therapy Daily Note ---
PT Daily Note-Current Subjective Agreeable to PT. Transfers Therapy Code Descriptions/Definitions Functional [place] Measure: 0=Not Assessed/NA 4=Minimal Assistance 1=Total Assistance 5=Supervision or Setup 2=Maximal Assistance 6=Modified [place] 3=Moderate Assistance 7=Complete [place] Therapy Quality Codes: 6 Independent with activity with or without an assistive device 5 Patient requires set up or clean up by helper. Patient completes activity by themselves 4 Supervision or touching assist (CGA). [place] provide cues , steadying assist 3 The helper provides less than half the effort to complete the activity 2 The helper provides more than half the effort to complete the activity 1 Dependent. The helper does all the effort to complete an activity 7 Patient refused to complete or attempt activity 9 The patient did not perform the activity before the current illness or injury 88 Not attempted due to Medical conditions or safety concerns Weight Bearing Right Lower Extremity: Right Full Weight Bearing Left Lower Extremity: Left Full Weight Bearing Treatments WC mobility in the room and on the unit x > 400 ft mod indep. Sit to patient care coordinator / / bars x 2 and amb x 6 ft each time with CGA followed by WC. Seated B LE ther ex x 15 for AP, LAQ, hip flexion. Pt up in chair with needs met post treatment. Assessment Current Status: Good Progress Transfers improving. Able to take a few steps in the // bars without assist. PT Short Term Goals Short Term Goals Time Frame: Jan 21, 2018 Wheelchair (FIM): 6 Wheelchair distance (FIM): 3=150 ft Wheelchair Distance: 150'x2 Wheelchair Level of Assist: 6 PT Prison Goals Hotel Or Motel Manager Goals PT Prison Goals Time Frame: Feb 04, 2018 Transfers (B,C,W/C) (FIM): 6 Sit to Lying (QC): 6 Lying-Sitting on Side/Bed(QC): 6 Sit to Stand (QC): 6 Rollin Roll Left to Right (QC): 6 Chair/Hms-sh-Wzjsx Xfer(QC): 6 Car Transfer (QC): 6 Does the Patient Walk: No and Walking Goal NOT indicated Distance: SEE PT GOALS Does the Pt use WC or Scooter?: Yes Wheelchair (FIM): 6 Wheelchair distance (FIM): 3=150 ft Distance: 300' Wheelchair Level of Assist: 6 Wheel 50 feet with 2 turns (QC: 6 PT Plan Problem List Problem List: Activity Tolerance, Functional Strength, Safety, Balance, Transfer, Bed Mobility Treatment/Plan Treatment Plan: Continue Plan of Care Treatment Plan: Bed Mobility, Education, Functional Activity Cindy, Functional Strength, Group Therapy, Gait, Safety, Therapeutic Exercise, Transfers Treatment Duration: Feb 04, 2018 Frequency: At least 5 of 7 days/Wk (IRF) Estimated Hrs Per Day: 1.5 hours per day Patient and/or Family Agrees t: Yes Safety Risks/Education Patient Education: Transfer Techniques, Safety Issues Teaching Recipient: Patient Teaching Methods: Demonstration, Discussion Response to Teaching: Reinforcement Needed Time/GCodes Time In: 1400 Time Out: 1430 Total Billed Treatment Time: 30 Total Billed Treatment visit FA 15 EX 15 POLINA NOLAND PT Jan 19, 2018 14:51
--- NOTE | 2018-01-19 15:14 | Speech Therapy Daily Note ---
Speech Daily Progress Note Subjective Date Seen by Provider: Jan 19, 2018 Time Seen by Provider: 00:30 Patient was pleasant and participated well with therapy. Objective Patient completed memory and problem solving tasks with 90% accuracy given minimal cuing. Assessment Assessment Current Status: Good Progress Treatment Plan Continue Plan of Care Communication Comprehension: 5 Expression: 5 Social Cognition Social Interaction: 5 Problem Solvin Memory: 3 Speech Short Term Goals Short Term Goals Short Term Goals 1) Patient will choose appropriate definitions for linguistic terms, with 90% or greater accuracy. 2) Patient will demonstrate memory for safety procedures, with 90% or greater accuracy. 3) Patient will be able to complete problem solving tasks, with 90% or greater accuracy. Speech Caustic Loader Goals Mcfp Goals Patient will improve her memory and problem solving skills for safety awareness and independence to safely return home. Speech-Plan Patient/Family Goals Patient/Family Goals: Patient plans to return home with her significant other this week. Treatment Plan Speech Therapy Treatment Plan: Continue Plan of Care Patient has made excellent progress with memory ability. Treatment Duration: Jan 23, 2018 Frequency: 5 times per week Estimated Hrs Per Day: .5 hour per day Rehab Potential: Good Barriers to Learning: Patient has a complicated medical history. Pt/Family Agrees to Plan: Yes Safety Risks/Education Teaching Recipient: Patient Teaching Methods: Discussion Response to Teaching: Verbalize Understanding Education Topics Provided: Safety when she returns home. Time Speech Therapy Time In: 14:30 Speech Therapy Time Out: 15:00 Total Billed Time: 30 Billed Treatment Time [address] Jan 19, 2018 15:14
[2018-01-19 17:19] VITALS: BP 127/86
--- NOTE | 2018-01-19 20:48 | PM & R (SOAP) Progress Note ---
Subjective This was a face to face visit with the patient. Date Seen by Provider: Jan 19, 2018 Time Seen by Provider: 20:45 Subjective/Events-last exam Patient was seen in her room this evening Patient min assist for transfers.Current meds reviewed Objective Physician Exam Last Set of Vital Signs Vital Signs Date Time Temp Pulse Resp B/P (MAP) Pulse Ox O2 Delivery O2 Flow Rate FiO2 01/19/18 17:19 97.8 87 14 127/86 (100) 96 Room Air Capillary Refill : I&O Intake and Output 01/19/18 00:00 Intake Total 1230 ml Balance 1230 ml Intake Oral 1230 ml # Voids 6 General: Alert, Oriented X3, Cooperative, No Acute Distress HEENT: Atraumatic, PERRLA, EOMI, Mucous Memb Moist/[place] Neck: Supple, No JVD Lungs: Clear to Auscultation Heart: Regular Rate Abdomen: Normal Bowel Sounds, Soft, No Tenderness Extremities: No Edema Neuro: Other (Weakness both lower limbs Foreshortened RT leg s/p girdlestone procedure ) Psych/Mental Status: Mental Status NL, Other (Mild memory deficit) Assessment/Plan Assessment and Plan general debil secondary to recurrent falls and chronic pain Chronic pain meds adjusted with better control of breakthrough pain HTN controlled Plan Continue PT/OT Discharge set for 01-21-18 will confirm with Co-Morbidities that are continuing to impact the rehab process: (include details ) JW SANFORD MD Jan 19, 2018 20:48
[2018-01-20 05:02] VITALS: BP 133/94
[2018-01-20] MEDS: IBUPROFEN 600 MG (MOTRIN) TAB PO SCH ×3 (05:23→17:07)
[2018-01-20] MEDS: BETHANECHOL 10 MG (URECHOLINE) TAB PO SCH ×3 (05:23→15:54)
[2018-01-20] MEDS: PREGABALIN 75 MG (LYRICA) CAP PO SCH ×3 (08:49→20:45)
[2018-01-20] MEDS: clonazePAM 1 MG (KlonoPIN) TAB PO SCH ×3 (08:49→20:45)
[2018-01-20] MEDS: SENNA W/DOCUSATE (SENOKOT S) TABLET PO SCH (08:50)
[2018-01-20] MEDS: FLUoxetine HCL 20 MG (PROzac) CAP PO SCH (08:50)
[2018-01-20] MEDS: ASPIRIN E.C. 81 MG (ECOTRIN) TAB PO SCH (08:50)
--- NOTE | 2018-01-20 09:58 | Physical Therapy Daily Note ---
PT Daily Note-Current Subjective Patient in wheelchair at bedside pre tx, agrees to PT, no complaints of pain. Appearance Patient in wheelchair post tx, she is mod I with wheelchair mobility. Mental Status Patient Orientation: Normal For Age Transfers Therapy Code Descriptions/Definitions Functional [place] Measure: 0=Not Assessed/NA 4=Minimal Assistance 1=Total Assistance 5=Supervision or Setup 2=Maximal Assistance 6=Modified [place] 3=Moderate Assistance 7=Complete [place] Therapy Quality Codes: 6 Independent with activity with or without an assistive device 5 Patient requires set up or clean up by helper. Patient completes activity by themselves 4 Supervision or touching assist (CGA). [place] provide cues , steadying assist 3 The helper provides less than half the effort to complete the activity 2 The helper provides more than half the effort to complete the activity 1 Dependent. The helper does all the effort to complete an activity 7 Patient refused to complete or attempt activity 9 The patient did not perform the activity before the current illness or injury 88 Not attempted due to Medical conditions or safety concerns Transfers (B, C, W/C) (FIM): 4 Scootin Rollin Roll Left to Right (QC): 6 Supine to/from Sit: 4 Sit to/from Stand: 5 Sit to Lying (QC): 3 Sit to Stand (QC): 4 Chair/Lto-sf-Kempp Xfer(QC): 6 Bed to/from Chair: 6 Car Transfer (QC): 6 Patient performs bed mobility with mod I but needs min assist for supine <-> sit , sit <-> stand SBA, transfers with mod I, car transfer mod I. Weight Bearing Right Lower Extremity: Right Full Weight Bearing Left Lower Extremity: Left Full Weight Bearing Gait Training Does the Patient Walk?: Yes Gait (FIM): 1 Distance: 20' Walk 10 feet (QC): 4 Gait Level of Assist: 4 Gait Persons Needed: 1 Gait Assistive Device: FWW Patient can ambulate 20' with CGA using a rolling walker. No ambulation over an uneven surface at this time due to poor endurance and decreased arm strength. Wheelchair Training Does the Pt Use a Wheelchair?: Yes Wheelchair (FIM): 6 Distance: 300' Wheelchair Level of Assist: 6 Wheel 50 ft with 2 turns (QC): 6 Wheel 150 ft (QC): 6 Type of Wheelchair: Manual Exercises Supine Ex: Ankle pumps, Quad Set, Glut sets, Heel Slides, Short Arc Quads, Straight leg raise, Hip abd/add Supine Reps: 20 LAQ alternating for 5 min Treatments bed mobility and transfers, ambulation, functional strengthening Assessment Current Status: Fair Progress improved ambulation but she is going to have pain with weight bearing on the right leg due to her hip surgery and impairment PT Short Term Goals Short Term Goals Time Frame: Jan 21, 2018 Wheelchair (FIM): 6 Wheelchair distance (FIM): 3=150 ft Wheelchair Distance: 150'x2 Wheelchair Level of Assist: 6 PT Physical Therapy Attendant Goals Physical Therapy Attendant Goals PT Physical Therapy Attendant Goals Time Frame: Feb 04, 2018 Transfers (B,C,W/C) (FIM): 6 Sit to Lying (QC): 6 Lying-Sitting on Side/Bed(QC): 6 Sit to Stand (QC): 6 Rollin (met) Roll Left to Right (QC): 6 (met) Chair/Kff-gr-Ukikp Xfer(QC): 6 (met) Car Transfer (QC): 6 (met) Does the Patient Walk: No and Walking Goal NOT indicated Distance: SEE PT GOALS Does the Pt use WC or Scooter?: Yes Wheelchair (FIM): 6 (met) Wheelchair distance (FIM): 3=150 ft Distance: 300' Wheelchair Level of Assist: 6 (met) Wheel 50 feet with 2 turns (QC: 6 (met) PT Plan Problem List Problem List: Activity Tolerance, Functional Strength, Safety, Balance, Gait, Transfer, Bed Mobility, ROM Treatment/Plan Treatment Plan: Continue Plan of Care Treatment Plan: Bed Mobility, Education, Functional Activity Cindy, Functional Strength, Group Therapy, Gait, Safety, Therapeutic Exercise, Transfers Treatment Duration: Feb 04, 2018 Frequency: At least 5 of 7 days/Wk (IRF) Estimated Hrs Per Day: 1.5 hours per day Patient and/or Family Agrees t: Yes Safety Risks/Education Patient Education: Gait Training, Transfer Techniques, Correct Positioning, W/ C Management, Safety Issues Teaching Recipient: Patient Teaching Methods: Demonstration, Discussion Response to Teaching: Reinforcement Needed Time/GCodes Time In: 0900 Time Out: 1000 Total Billed Treatment Time: 60 Total Billed Treatment 1 visit FA 30' EX 30' IVORY ALCANTAR PT Jan 20, 2018 09:58
--- NOTE | 2018-01-20 10:41 | Occupational Ther Daily Note ---
OT Current Status-Daily Note Subjective Pt sitting in w/c, agrees to therapy. Pt reports 8/10 bilateral LE pain. RN present and aware of pain rating. Mental Status/Objective Therapy Code Descriptions/Definitions Functional [place] Measure: 0=Not Assessed/NA 4=Minimal Assistance 1=Total Assistance 5=Supervision or Setup 2=Maximal Assistance 6=Modified [place] 3=Moderate Assistance 7=Complete [place] ADL-Treatment Pt requests shower this morning. Has already gathered clothing from closet at w/ c level. W/c mobility to restroom without assistance. Pt doffed clothing without assist. Transfer w/c <-> shower bench with modified independence using grab bars for safety. Seated bathing completed with modified independence using hand held shower. Able to wash/dry all areas. Don pullover shirt with modified independence. Pt able to don underwear and pants with modified independence. Pt donned socks and shoes without assist while seated in w/c. Combed hair without assist. Pt states she has already completed oral care and put dentures in without assist while seated at sink. Pt sitting in w/c with needs met after session. Therapy Code Descriptions/Definitions Functional [place] Measure: 0=Not Assessed/NA 4=Minimal Assistance 1=Total Assistance 5=Supervision or Setup 2=Maximal Assistance 6=Modified [place] 3=Moderate Assistance 7=Complete [place] Therapy Quality Codes: 6 Independent with activity with or without an assistive device 5 Patient requires set up or clean up by helper. Patient completes activity by themselves 4 Supervision or touching assist (CGA). [place] provide cues , steadying assist 3 The helper provides less than half the effort to complete the activity 2 The helper provides more than half the effort to complete the activity 1 Dependent. The helper does all the effort to complete an activity 7 Patient refused to complete or attempt activity 9 The patient did not perform the activity before the current illness or injury 88 Not attempted due to Medical conditions or safety concerns Eating (FIM): 6 (Pt reports feeding self, cutting food, and managing containers without assist. Wears dentures) Eating (QC): 6 Grooming (FIM): 6 Oral Hygiene (QC): 6 Bathing (FIM): 6 Shower/Bathe Self (QC): 6 Upper Body (FIM): 6 Upper Body Dressing (QC): 6 Lower Body Dressing (FIM): 6 Lower Body Dressing (QC): 6 On/Off Footwear (QC): 6 Shower Transfer(FIM): 6 OT Short Term Goals Short Term Goals Time Frame: Jan 21, 2018 Bathing(FIM): 5 Lower Body Dressing(FIM): 5 Toileting(FIM): 5 Toilet/Commode Transfer(FIM): 5 Additional Short Term Goals: 1-Demonstrate ADL Tasks, 2-Verbalize Understanding , 3-ImproveStrength/Cindy 1=Demonstrate adherence to instructed precautions during ADL tasks. 2=Patient will verbalize/demonstrate understanding of assistive devices/ modifications for ADL. 3=Patient will improve strength/tolerance for activity to enable patient to perform ADL's. OT Productivity Engineer Goals Productivity Engineer Goals Time Frame: Feb 04, 2018 Eating (FIM): 6 (met 01/20/18) Eating (QC): 6 (6-MET) Groomin (met 01/20/18) Oral Hygiene (QC): 6 (6-MET) Bathing(FIM): 5 (exceeded 01/20/18) Shower/Bathe Self (QC): 5 (6-exceeded) Upper Body Dressing(FIM): 6 (met 01/20/18) Upper Body Dressing (QC): 6 (6-MET) Lower Body Dressing(FIM): 6 (met 01/20/18) Lower Body Dressing (QC): 6 (6-Met) On/Off Footwear (QC): 6 (6-MET) Toileting(FIM): 6 Toileting Hygiene (QC): 6 Toilet/Commode Transfer(FIM): 6 Toilet/Commode Transfer (QC): 6 Shower Transfer(FIM): 5 (met 01/20/18) Additional Goals: 1-Demonstrate ADL Tasks, 2-Verbalize Understanding, 3- ImproveStrength/Cindy 1=Demonstrate adherence to instructed precautions during ADL tasks. 2=Patient will verbalize/demonstrate understanding of assistive devices/ modifications for ADL. 3=Patient will improve strength/tolerance for activity to enable patient to perform ADL's. OT Education/Plan Discharge Recommendations Plan/Recommendations: Continue POC Treatment Plan/Plan of Care Patient would benefit from OT for education, treatment and training to promote independence in ADL's, mobility, safety and/or upper extremity function for ADL' s. Plan of Care: ADL Retraining, Functional Mobility, Group Exercise/Act as Ind, UE Funct Exercise/Act Treatment Duration: Feb 04, 2018 Frequency: Modified Program (IRF) (24/08) Estimated Hrs Per Day: 1.5 hours per day Rehab Potential: Good Time/GCodes Start Time: 08:00 Stop Time: 09:00 Total Time Billed (hr/min): 60 Billed Treatment Time 1 visit, ADLx4(60minutes) BETTY HO OT Jan 20, 2018 10:41
--- NOTE | 2018-01-20 11:35 | Physical Therapy Daily Note ---
PT Daily Note-Current Subjective Agrees to PT. Planned a cooking task. Transfers Therapy Code Descriptions/Definitions Functional [place] Measure: 0=Not Assessed/NA 4=Minimal Assistance 1=Total Assistance 5=Supervision or Setup 2=Maximal Assistance 6=Modified [place] 3=Moderate Assistance 7=Complete [place] Therapy Quality Codes: 6 Independent with activity with or without an assistive device 5 Patient requires set up or clean up by helper. Patient completes activity by themselves 4 Supervision or touching assist (CGA). [place] provide cues , steadying assist 3 The helper provides less than half the effort to complete the activity 2 The helper provides more than half the effort to complete the activity 1 Dependent. The helper does all the effort to complete an activity 7 Patient refused to complete or attempt activity 9 The patient did not perform the activity before the current illness or injury 88 Not attempted due to Medical conditions or safety concerns Weight Bearing Right Lower Extremity: Right Full Weight Bearing Left Lower Extremity: Left Full Weight Bearing Treatments Pre planned a cooking task to focus on mobility and safety in a kitchen environment as well as skills with problem solving and sequencing to prepare something. Pt made no bake cookies at a wheelchair level, moving about the kitchen area using her feet to propel so as not to get her hands dirty while preparing food. Pt measured, stirred and dipped to make the cookies and used a recipe for sequencing. Used LE's for wheelchair mobility and UE's for stirring and dipping. Assessment Pt demonstrated clean technique in the kitchen and was effective with mobility and stirring/dipping. She did require 20% cues to sequence and follow directions to cook. PT Short Term Goals Short Term Goals Time Frame: Jan 21, 2018 Wheelchair (FIM): 6 Wheelchair distance (FIM): 3=150 ft Wheelchair Distance: 300' Wheelchair Level of Assist: 6 PT Jail Goals Applied Computer Science Professor Goals PT Jail Goals Time Frame: Feb 04, 2018 Transfers (B,C,W/C) (FIM): 6 Sit to Lying (QC): 6 Lying-Sitting on Side/Bed(QC): 6 Sit to Stand (QC): 6 Rollin (met) Roll Left to Right (QC): 6 (met) Chair/Jby-wa-Xgfkg Xfer(QC): 6 (met) Car Transfer (QC): 6 (met) Does the Patient Walk: No and Walking Goal NOT indicated Distance: SEE PT GOALS Does the Pt use WC or Scooter?: Yes Wheelchair (FIM): 6 (met) Wheelchair distance (FIM): 3=150 ft Distance: 300' Wheelchair Level of Assist: 6 (met) Wheel 50 feet with 2 turns (QC: 6 (met) PT Plan Problem List Problem List: Activity Tolerance, Functional Strength, Safety Treatment/Plan Treatment Plan: Continue Plan of Care Treatment Plan: Bed Mobility, Education, Functional Activity Cindy, Functional Strength, Group Therapy, Gait, Safety, Therapeutic Exercise, Transfers Treatment Duration: Feb 04, 2018 Frequency: At least 5 of 7 days/Wk (IRF) Estimated Hrs Per Day: 1.5 hours per day Patient and/or Family Agrees t: Yes Safety Risks/Education Patient Education: Safety Issues Teaching Recipient: Patient Teaching Methods: Discussion Response to Teaching: Verbalize Understanding, Return Demonstration Time/GCodes Time In: 1048 Time Out: 1130 Total Billed Treatment Time: 42 Total Billed Treatment visit FA 42 POLINA NOLAND PT Jan 20, 2018 11:35
--- NOTE | 2018-01-20 11:55 | Speech Therapy Daily Note ---
Speech Daily Progress Note Subjective Date Seen by Provider: Jan 20, 2018 Time Seen by Provider: 00:30 Patient pleasant and cooperative. She states she is happy to be going back home tomorrow. Objective Patient was able to complete memory tasks with 80% accuracy given minimal cues. Treatment Plan Continue Plan of Care Communication Comprehension: 7 Expression: 7 Social Cognition Social Interaction: 7 Problem Solvin Memory: 7 Speech Short Term Goals Short Term Goals Short Term Goals 1) Patient will choose appropriate definitions for linguistic terms, with 90% or greater accuracy. 2) Patient will demonstrate memory for safety procedures, with 90% or greater accuracy. 3) Patient will be able to complete problem solving tasks, with 90% or greater accuracy. Speech Helicopter Utility Aircrewman Goals Alf Goals Patient will improve her memory and problem solving skills for safety awareness and independence to safely return home. Speech-Plan Patient/Family Goals Patient/Family Goals: Patient will be returning home with her significant other on 01/21/2018 Treatment Plan Speech Therapy Treatment Plan: Continue Plan of Care Patient has made excellent progress as a result of skilled services. Treatment Duration: Jan 23, 2018 Frequency: 5 times per week Estimated Hrs Per Day: .5 hour per day Rehab Potential: Good Barriers to Learning: Patient has a complicated medical history. Pt/Family Agrees to Plan: Yes Safety Risks/Education Teaching Recipient: Patient Teaching Methods: Discussion Response to Teaching: Verbalize Understanding Education Topics Provided: Safety situations when she returns home. Time Speech Therapy Time In: 10:00 Speech Therapy Time Out: 10:30 Total Billed Time: 30 Billed Treatment Time [address] Jan 20, 2018 11:55
--- NOTE | 2018-01-20 12:02 | Occupational Ther Daily Note ---
OT Current Status-Daily Note Subjective Pt sitting in w/c, agrees to therapy. Mental Status/Objective Therapy Code Descriptions/Definitions Functional [place] Measure: 0=Not Assessed/NA 4=Minimal Assistance 1=Total Assistance 5=Supervision or Setup 2=Maximal Assistance 6=Modified [place] 3=Moderate Assistance 7=Complete [place] ADL-Treatment Pt states she just recently completed toileting. States she transferred w/c <-> toilet without assist using grab bars and was able to complete toileting hygiene and clothing management without assistance. Declined to practice toilet transfer at this time. Therapy Code Descriptions/Definitions Functional [place] Measure: 0=Not Assessed/NA 4=Minimal Assistance 1=Total Assistance 5=Supervision or Setup 2=Maximal Assistance 6=Modified [place] 3=Moderate Assistance 7=Complete [place] Therapy Quality Codes: 6 Independent with activity with or without an assistive device 5 Patient requires set up or clean up by helper. Patient completes activity by themselves 4 Supervision or touching assist (CGA). [place] provide cues , steadying assist 3 The helper provides less than half the effort to complete the activity 2 The helper provides more than half the effort to complete the activity 1 Dependent. The helper does all the effort to complete an activity 7 Patient refused to complete or attempt activity 9 The patient did not perform the activity before the current illness or injury 88 Not attempted due to Medical conditions or safety concerns Toileting (FIM): 6 (By pt report) Toileting Hygiene (QC): 6 Toilet/Commode Transfer (FIM): 6 Toilet Transfer (QC): 6 Other Treatment Pt performed w/c mobility to therapy gym without assistance. Arm bike x12 minutes to increase overall strength and activity tolerance needed for functional tasks. Pt performed activity with moderate resistance and steady pace. Occasional rest breaks taken throughout activity. Plan is for pt to d/c home tomorrow. Has no questions or concerns at this time. Pt sitting in w/c after session, denies needs. OT Short Term Goals Short Term Goals Time Frame: Jan 21, 2018 Bathing(FIM): 5 Lower Body Dressing(FIM): 5 Toileting(FIM): 5 Toilet/Commode Transfer(FIM): 5 Additional Short Term Goals: 1-Demonstrate ADL Tasks, 2-Verbalize Understanding , 3-ImproveStrength/Cindy 1=Demonstrate adherence to instructed precautions during ADL tasks. 2=Patient will verbalize/demonstrate understanding of assistive devices/ modifications for ADL. 3=Patient will improve strength/tolerance for activity to enable patient to perform ADL's. OT Prison Goals Agricultural Inspector Goals Time Frame: Feb 04, 2018 Eating (FIM): 6 (met 01/20/18) Eating (QC): 6 (6-MET) Groomin (met 01/20/18) Oral Hygiene (QC): 6 (6-MET) Bathing(FIM): 5 (exceeded 01/20/18) Shower/Bathe Self (QC): 5 (6-exceeded) Upper Body Dressing(FIM): 6 (met 01/20/18) Upper Body Dressing (QC): 6 (6-MET) Lower Body Dressing(FIM): 6 (met 01/20/18) Lower Body Dressing (QC): 6 (6-Met) On/Off Footwear (QC): 6 (6-MET) Toileting(FIM): 6 Toileting Hygiene (QC): 6 Toilet/Commode Transfer(FIM): 6 Toilet/Commode Transfer (QC): 6 Shower Transfer(FIM): 5 (met 01/20/18) Additional Goals: 1-Demonstrate ADL Tasks, 2-Verbalize Understanding, 3- ImproveStrength/Cindy 1=Demonstrate adherence to instructed precautions during ADL tasks. 2=Patient will verbalize/demonstrate understanding of assistive devices/ modifications for ADL. 3=Patient will improve strength/tolerance for activity to enable patient to perform ADL's. OT Education/Plan Discharge Recommendations Plan/Recommendations: Continue POC Treatment Plan/Plan of Care Patient would benefit from OT for education, treatment and training to promote independence in ADL's, mobility, safety and/or upper extremity function for ADL' s. Plan of Care: ADL Retraining, Functional Mobility, Group Exercise/Act as Ind, UE Funct Exercise/Act Treatment Duration: Feb 04, 2018 Frequency: Modified Program (IRF) (24/08) Estimated Hrs Per Day: 1.5 hours per day Rehab Potential: Good Time/GCodes Start Time: 11:30 Stop Time: 11:50 Total Time Billed (hr/min): 20 Billed Treatment Time 1 visit, EX(20minutes) BETTY HO OT Jan 20, 2018 12:01
[2018-01-20 18:05] VITALS: BP 124/87
--- NOTE | 2018-01-20 19:35 | PM & R (SOAP) Progress Note ---
Subjective This was a face to face visit with the patient. Date Seen by Provider: Jan 20, 2018 Time Seen by Provider: 08:00 Subjective/Events-last exam Patient was seen in her room this AM Patient min assist for transfers Scheduled for discharge tomorrow.Current meds reviewed Date Identified: Jan 20, 2018 Time Identified: 19:30 Medication Intervention: Discharge meds reviewed Review of Systems Musculoskeletal: back pain Objective Physician Exam Last Set of Vital Signs Vital Signs Date Time Temp Pulse Resp B/P (MAP) Pulse Ox O2 Delivery O2 Flow Rate FiO2 01/20/18 18:05 98.4 88 20 124/87 (99) 97 Room Air Capillary Refill : I&O Intake and Output 01/20/18 00:00 Intake Total 1262 ml Balance 1262 ml Intake Oral 1262 ml # Voids 6 General: Alert, Oriented X3, Cooperative, No Acute Distress HEENT: Atraumatic, PERRLA, EOMI, Mucous Memb Moist/[place] Neck: Supple, No JVD Lungs: Clear to Auscultation Heart: Regular Rate Abdomen: Normal Bowel Sounds, Soft, No Tenderness Extremities: No Edema Neuro: Other (Weakness both lower limbs Foreshortened RT leg s/p girdlestone procedure ) Psych/Mental Status: Mental Status NL, Other (Mild memory deficit) Assessment/Plan Assessment and Plan general debil secondary to recurrent falls and chronic pain Chronic pain HTN meds adjusted Plan Discharge set for tomorrow F/U with DR Vaughn See orders Co-Morbidities that are continuing to impact the rehab process: (include details ) JW SANFORD MD Jan 20, 2018 19:35
[2018-01-20] MEDS ORDERED: FENT1PAT58 TD (19:40)
[2018-01-20] MEDS ORDERED: Oxycodone Hcl PO (19:41)
[2018-01-21 05:08] VITALS: BP 113/76
[2018-01-21] MEDS: IBUPROFEN 600 MG (MOTRIN) TAB PO SCH (06:03)
[2018-01-21] MEDS: BETHANECHOL 10 MG (URECHOLINE) TAB PO SCH (06:04)
--- NOTE | 2018-01-21 08:13 | PM & R (SOAP) Progress Note ---
Subjective This was a face to face visit with the patient. Date Seen by Provider: Jan 21, 2018 Time Seen by Provider: 07:50 Subjective/Events-last exam Patient was seen in her room this AM Patient Modified Independent in room All set for discharge Date Identified: Jan 21, 2018 Time Identified: 07:45 Medication Intervention: Discharge meds reviewed Objective Physician Exam Last Set of Vital Signs Vital Signs Date Time Temp Pulse Resp B/P (MAP) Pulse Ox O2 Delivery O2 Flow Rate FiO2 01/21/18 05:08 98.1 76 16 113/76 (88) 97 Room Air Capillary Refill : I&O Intake and Output 01/21/18 00:00 Intake Total 1515 ml Balance 1515 ml Intake Oral 1515 ml # Voids 8 # Bowel Movements 1 General: Alert, Oriented X3, Cooperative, No Acute Distress HEENT: Atraumatic, PERRLA, EOMI, Mucous Memb Moist/[place] Neck: Supple, No JVD Lungs: Clear to Auscultation Heart: Regular Rate Abdomen: Normal Bowel Sounds, Soft, No Tenderness Extremities: No Edema Neuro: Other (Weakness both lower limbs Foreshortened RT leg s/p girdlestone procedure ) Psych/Mental Status: Mental Status NL, Other (Mild memory deficit) Assessment/Plan Assessment and Plan Home today with SO F/U with DR Vaughn See orders. Co-Morbidities that are continuing to impact the rehab process: (include details ) JW SANFORD MD Jan 21, 2018 08:13
[2018-01-21] MEDS: PREGABALIN 75 MG (LYRICA) CAP PO SCH (08:24)
[2018-01-21] MEDS: ASPIRIN E.C. 81 MG (ECOTRIN) TAB PO SCH (08:24)
[2018-01-21] MEDS: clonazePAM 1 MG (KlonoPIN) TAB PO SCH (08:24)
[2018-01-21] MEDS: FLUoxetine HCL 20 MG (PROzac) CAP PO SCH (08:24)
[2018-01-21] MEDS: SENNA W/DOCUSATE (SENOKOT S) TABLET PO SCH (08:25)
--- NOTE | 2018-01-21 10:36 | Therapy Team Discharge Summary ---
Therapy Discharge Summary Discharge Recommendations Date of Discharge Therapy D/C Recommendations: Home w/ Family Support Physical Therapy Patient came to rehab with general debility. Upon evaluation patient performed bed mobility with SBA, supine <-> sit SBA, sit <-> stand CGA, transfers CGA, car transfer CGA, was able to ambulate forward and back 3' in the parallel bars with CGA, and could propel a manual wheelchair 150' with SBA. Patient has been performing bed mobility and transfer training, balance and endurance training, functional strengthening, gait training, and education. Patient has made good progress and has met all of her remote computer terminal operator goals except for supine <-> sit and sit <-> stand. Now, patient performs bed mobility with mod I but needs min assist for supine <-> sit, sit <-> stand SBA, transfers with mod I, car transfer mod I, ambulates 20' with CGA using a rolling walker, No ambulation over an uneven surface at this time due to poor endurance and decreased arm strength, and can propel a manual wheelchair 300' with mod I. Patient is discharging from this facility today and will be discharged from PT at this time. Occupational Therapy Decreased Activ Tolerance, Decreased UE Strength, Dependent Transfers, Impaired Self-Care Skills PT Senior Living Goals Overedge Sewer Goals PT Senior Living Goals Time Frame: Feb 04, 2018 Transfers (B,C,W/C) (FIM): 6 Roll Left to Right (QC): 6 (met) Sit to Lying (QC): 6 Lying-Sitting on Side/Bed(QC): 6 Sit to Stand (QC): 6 Chair/Zkn-ha-Cfyzq Xfer(QC): 6 (met) Car Transfer (QC): 6 (met) Does the Patient Walk: No and Walking Goal NOT indicated Distance: SEE PT GOALS Does the Pt use WC or Scooter?: Yes Wheelchair (FIM): 6 (met) Wheelchair distance (FIM): 3=150 ft Distance: 300' Wheelchair Level of Assist: 6 (met) Wheel 50 feet with 2 turns (QC: 6 (met) OT Senior Living Goals Senior Living Goals Time Frame: Feb 04, 2018 Eating (FIM): 6 (met 01/20/18) Eating (QC): 6 (6-MET) Oral Hygiene (QC): 6 (6-MET) Grooming(FIM): 6 (met 01/20/18) Bathing(FIM): 5 (exceeded 01/20/18) Shower/Bathe Self (QC): 5 (6-exceeded) Upper Body Dressing(FIM): 6 (met 01/20/18) Upper Body Dressing (QC): 6 (6-MET) Lower Body Dressing(FIM): 6 (met 01/20/18) Lower Body Dressing (QC): 6 (6-Met) On/Off Footwear (QC): 6 (6-MET) Toileting(FIM): 6 Toileting Hygiene (QC): 6 Toilet/Commode Transfer(FIM): 6 Toilet/Commode Transfer (QC): 6 Shower Transfer(FIM): 5 (met 01/20/18) Additional Goals: 1-Demonstrate ADL Tasks, 2-Verbalize Understanding, 3- ImproveStrength/Cindy 1=Demonstrate adherence to instructed precautions during ADL tasks. 2=Patient will verbalize/demonstrate understanding of assistive devices/ modifications for ADL. 3=Patient will improve strength/tolerance for activity to enable patient to perform ADL's. Speech Overedge Sewer Goals Overedge Sewer Goals Patient will improve her memory and problem solving skills for safety awareness and independence to safely return home. IVORY ALCANTAR PT Jan 21, 2018 10:36
[2018-01-21 11:27] VITALS: BP 113/76
--- NOTE | 2018-01-21 11:55 | Therapy Team Discharge Summary ---
Therapy Discharge Summary Discharge Recommendations Date of Discharge Jan 21, 2018 at 11:30 Therapy D/C Recommendations: Home w/ Family Support Occupational Therapy Pt admitted to ARU with general debility. On admission pt required mod assist with toileting and min assist with bathing, LE dressing, and transfers. Skilled OT intervention focused on ADL training, transfers, strengthening, and safety education. Pt made good progress with therapy and by discharge is completing basic ADLs and transfers with modified independence. Pt met OT LTG. Plan is for pt to d/c home today with boyfriend. D/C ARU OT at this time. Decreased Activ Tolerance, Decreased UE Strength, Dependent Transfers, Impaired Self-Care Skills PT Nursing Home Goals Incident Handler Goals PT Incident Handler Goals Time Frame: Feb 04, 2018 Transfers (B,C,W/C) (FIM): 6 Roll Left to Right (QC): 6 (met) Sit to Lying (QC): 6 Lying-Sitting on Side/Bed(QC): 6 Sit to Stand (QC): 6 Chair/Wlv-nv-Mgprw Xfer(QC): 6 (met) Car Transfer (QC): 6 (met) Does the Patient Walk: No and Walking Goal NOT indicated Distance: SEE PT GOALS Does the Pt use WC or Scooter?: Yes Wheelchair (FIM): 6 (met) Wheelchair distance (FIM): 3=150 ft Distance: 300' Wheelchair Level of Assist: 6 (met) Wheel 50 feet with 2 turns (QC: 6 (met) OT Incident Handler Goals Nursing Home Goals Time Frame: Feb 04, 2018 Eating (FIM): 6 (met 01/20/18) Eating (QC): 6 (6-MET) Oral Hygiene (QC): 6 (6-MET) Grooming(FIM): 6 (met 01/20/18) Bathing(FIM): 5 (exceeded 01/20/18) Shower/Bathe Self (QC): 5 (6-exceeded) Upper Body Dressing(FIM): 6 (met 01/20/18) Upper Body Dressing (QC): 6 (6-MET) Lower Body Dressing(FIM): 6 (met 01/20/18) Lower Body Dressing (QC): 6 (6-Met) On/Off Footwear (QC): 6 (6-MET) Toileting(FIM): 6 Toileting Hygiene (QC): 6 Toilet/Commode Transfer(FIM): 6 Toilet/Commode Transfer (QC): 6 Shower Transfer(FIM): 5 (met 01/20/18) Additional Goals: 1-Demonstrate ADL Tasks, 2-Verbalize Understanding, 3- ImproveStrength/Cindy 1=Demonstrate adherence to instructed precautions during ADL tasks. 2=Patient will verbalize/demonstrate understanding of assistive devices/ modifications for ADL. 3=Patient will improve strength/tolerance for activity to enable patient to perform ADL's. Speech Nursing Home Goals Incident Handler Goals Patient will improve her memory and problem solving skills for safety awareness and independence to safely return home. BETTY HO OT Jan 21, 2018 11:55
--- NOTE | 2018-01-21 15:09 | Therapy Team Discharge Summary ---
Therapy Discharge Summary Discharge Recommendations Date of Discharge Jan 21, 2018 at 11:30 Therapy D/C Recommendations: Home w/ Family Support Occupational Therapy Decreased Activ Tolerance, Decreased UE Strength, Dependent Transfers, Impaired Self-Care Skills Speech-Language Pathology Patient was admitted to ARU with general debility. She exhibited decreased memory and problem solving skills which she was able to recover with skilled ST services. Focus of therapy was for increased safety awareness and independence. She was able to meet her goals and return home with her significant other. 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 Senior Care Goals 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 Time Frame: Feb 04, 2018 Transfers (B,C,W/C) (FIM): 6 Roll Left to Right (QC): 6 (met) Sit to Lying (QC): 6 Lying-Sitting on Side/Bed(QC): 6 Sit to Stand (QC): 6 Chair/Atj-dt-Mxghb Xfer(QC): 6 (met) Car Transfer (QC): 6 (met) Does the Patient Walk: No and Walking Goal NOT indicated Distance: SEE PT GOALS Does the Pt use WC or Scooter?: Yes Wheelchair (FIM): 6 (met) Wheelchair distance (FIM): 3=150 ft Distance: 300' Wheelchair Level of Assist: 6 (met) Wheel 50 feet with 2 turns (QC: 6 (met) OT [employer]ing [employer] Operator Goals Senior Care Goals Time Frame: Feb 04, 2018 Eating (FIM): 6 (met 01/20/18) Eating (QC): 6 (6-MET) Oral Hygiene (QC): 6 (6-MET) Grooming(FIM): 6 (met 01/20/18) Bathing(FIM): 5 (exceeded 01/20/18) Shower/Bathe Self (QC): 5 (6-exceeded) Upper Body Dressing(FIM): 6 (met 01/20/18) Upper Body Dressing (QC): 6 (6-MET) Lower Body Dressing(FIM): 6 (met 01/20/18) Lower Body Dressing (QC): 6 (6-Met) On/Off Footwear (QC): 6 (6-MET) Toileting(FIM): 6 Toileting Hygiene (QC): 6 Toilet/Commode Transfer(FIM): 6 Toilet/Commode Transfer (QC): 6 Shower Transfer(FIM): 5 (met 01/20/18) Additional Goals: 1-Demonstrate ADL Tasks, 2-Verbalize Understanding, 3- ImproveStrength/Cindy 1=Demonstrate adherence to instructed precautions during ADL tasks. 2=Patient will verbalize/demonstrate understanding of assistive devices/ modifications for ADL. 3=Patient will improve strength/tolerance for activity to enable patient to perform ADL's. Speech Senior Care Goals Senior Care Goals Patient will improve her memory and problem solving skills for safety awareness and independence to safely return home. Met Comprehension: 7 Expression: 7 Social Interaction: 7 Problem Solvin Memory: 6 SUNDAY AVILA Jan 21, 2018 15:09
== END 2018-01-21 11:30 | disposition home health service (06) | DRG 556 ==
PROVIDERS: ADMIT Physical Medicine & Rehabilitation; ATTEND Physical Medicine & Rehabilitation
DX: R29.898 Other symptoms and signs involving the musculoskeletal system (principal); R29.6 Repeated falls; M25.551 Pain in right hip; G89.29 Other chronic pain; M21.961 Unspecified acquired deformity of right lower leg; D50.9 Iron deficiency anemia, unspecified; I10 Essential (primary) hypertension; B18.2 Chronic viral hepatitis C; F41.9 Anxiety disorder, unspecified; K21.9 Gastro-esophageal reflux disease without esophagitis; F39 Unspecified mood [affective] disorder; G43.909 Migraine, unspecified, not intractable, without status migrainosus; Z79.899 Other long term (current) drug therapy; Z96.641 Presence of right artificial hip joint
CPT/HCPCS: 36415; 80053; 85025

== ENCOUNTER → 2018-08-05 | Outpatient (CLI) | payer MEDICAID ==
[~2018-08-05] MED LIST changes: +ACET325T38 PO; -AMLO5TAB7 PO; +AMLO5TAB9 PO; +ASPI-999 PO; +BETH10TA PO; +FENT1PAT58 TD; +FERR325T18 PO; +FLUO40CA PO; +MELA3TAB PO; +NABU500T PO; +Oxycodone Hcl PO; +PANT40TA3 PO; +PREG150C PO; +PROM25TA14 PO; +SUMA100T3 PO; +TIZA4TAB3 PO
== END ==
LOC: WOUNDCARE 09:12
PROVIDERS: ATTEND Surgery
DX: T81.31XA Disruption of external operation (surgical) wound, not elsewhere classified, initial encounter (principal); L98.492 Non-pressure chronic ulcer of skin of other sites with fat layer exposed; I89.0 Lymphedema, not elsewhere classified; Z96.642 Presence of left artificial hip joint
CPT/HCPCS: 11042

== ENCOUNTER → 2018-08-05 | Outpatient (CLI) | payer MEDICAID ==
[2018-08-05 11:23] LABS: BASOPHILS % (AUTO) 1 % (0-10); EOSINOPHILS # (AUTO) 0.2 10^3/uL (0.0-0.3); EOSINOPHILS % (AUTO) 6 % (0-10); HEMATOCRIT 39 % (35-52); HEMOGLOBIN 12.2 G/DL (11.5-16.0); LYMPHOCYTES # (AUTO) 1.6 X 10^3 (1.0-4.0); LYMPHOCYTES % (AUTO) 47 % (12-44); MEAN CORPUSCULAR HEMOGLOBIN 27 PG (25-34); MEAN CORPUSCULAR HGB CONC 31 G/DL (32-36); MEAN CORPUSCULAR VOLUME 87 FL (80-99); MEAN PLATELET VOLUME 11.8 FL (7.4-10.4); MONOCYTES # (AUTO) 0.3 X 10^3 (0.0-1.0); MONOCYTES % (AUTO) 10 % (0-12); NEUTROPHILS # (AUTO) 1.2 X 10^3 (1.8-7.8); NEUTROPHILS % (AUTO) 35 % (42-75); PLATELET COUNT 238 10^3/uL (130-400); RED CELL DISTRIBUTION WIDTH 14.6 % (10.0-14.5); WHITE BLOOD COUNT 3.3 10^3/uL (4.3-11.0)
[2018-08-05 11:38] LABS: ALBUMIN 3.6 GM/DL (3.2-4.5); BILIRUBIN,TOTAL 0.4 MG/DL (0.1-1.0); CALCIUM 9.3 MG/DL (8.5-10.1); CREATININE SERUM 1.13 MG/DL (0.60-1.30); TOTAL PROTEIN 7.6 GM/DL (6.4-8.2)
== END ==
LOC: LAB 10:53
PROVIDERS: ATTEND Surgery
DX: L98.492 Non-pressure chronic ulcer of skin of other sites with fat layer exposed (principal)
CPT/HCPCS: 36415; 80053; 84134; 85025

== ENCOUNTER → 2018-08-14 | Outpatient (CLI) | payer MEDICAID | LOC: WOUNDCARE 10:40 | PROVIDERS: ATTEND Surgery | DX: T81.31XA Disruption of external operation (surgical) wound, not elsewhere classified, initial encounter (principal); L98.492 Non-pressure chronic ulcer of skin of other sites with fat layer exposed; I89.0 Lymphedema, not elsewhere classified; Z96.642 Presence of left artificial hip joint | CPT/HCPCS: 11042 ==

== ENCOUNTER → 2018-08-21 | Outpatient (CLI) | payer MEDICAID | LOC: WOUNDCARE 10:35 | PROVIDERS: ATTEND Surgery | DX: E11.622 Type 2 diabetes mellitus with other skin ulcer (principal) | CPT/HCPCS: 11042 ==

== ENCOUNTER → 2018-08-28 | Outpatient (CLI) | payer MEDICAID | LOC: WOUNDCARE 09:03 | PROVIDERS: ATTEND Surgery | DX: L98.492 Non-pressure chronic ulcer of skin of other sites with fat layer exposed (principal); T81.31XA Disruption of external operation (surgical) wound, not elsewhere classified, initial encounter; I89.0 Lymphedema, not elsewhere classified; I96 Gangrene, not elsewhere classified; Z96.642 Presence of left artificial hip joint | CPT/HCPCS: 11042 ==

== ENCOUNTER → 2018-09-11 | Outpatient (CLI) | payer MEDICAID ==
[~2018-09-11] MED LIST changes: -TIZA4TAB3 PO; +TIZA4TAB4 PO
== END ==
LOC: WOUNDCARE 09:08
PROVIDERS: ATTEND Surgery
DX: L92.8 Other granulomatous disorders of the skin and subcutaneous tissue (principal); L98.492 Non-pressure chronic ulcer of skin of other sites with fat layer exposed; T81.31XA Disruption of external operation (surgical) wound, not elsewhere classified, initial encounter; I89.0 Lymphedema, not elsewhere classified; I96 Gangrene, not elsewhere classified; Z96.642 Presence of left artificial hip joint
CPT/HCPCS: 17250

== ENCOUNTER → 2018-09-18 | Outpatient (CLI) | payer MEDICAID | LOC: WOUNDCARE 09:09 | PROVIDERS: ATTEND Surgery | DX: L92.8 Other granulomatous disorders of the skin and subcutaneous tissue (principal); L98.492 Non-pressure chronic ulcer of skin of other sites with fat layer exposed; T81.31XA Disruption of external operation (surgical) wound, not elsewhere classified, initial encounter; I89.0 Lymphedema, not elsewhere classified; Z96.642 Presence of left artificial hip joint | CPT/HCPCS: 99212 ==

== ENCOUNTER → 2019-01-08 | Outpatient (CLI) | payer MEDICAID | LOC: RAD 10:10 | PROVIDERS: ATTEND Internal Medicine | DX: Z12.31 Encounter for screening mammogram for malignant neoplasm of breast (principal) | CPT/HCPCS: 77067 ==

== ENCOUNTER 2020-10-13 10:14 | Emergency (ER) | payer MEDICAID ==
[~2020-10-13] VITALS: Ht 172 cm; Wt 77.0 kg
[~2020-10-13 10:14] MED LIST changes: -ACET-77 PO; +ACET-78 PO; +AMLO-250 PO; -AMLO5TAB9 PO; +CLN.1T PO; -CLON0.1T PO; -CLON0.5T13 PO; +CLON0.5T4 PO; -MELA3TAB PO; +MELA3TAB39 PO; -NABU500T PO; +NABU500T8 PO; -OXYC-465 PO; +OXYC-556 PO; -PANT40TA3 PO; +PANT40TA52 PO
[2020-10-13] MEDS ORDERED: ACETAMINOPHEN 500 MG TAB (TYLENOL) PO STA (10:22)
[2020-10-13] MEDS ORDERED: PREGABALIN 25 MG (LYRICA) CAPSULE PO ONE (10:30)
[2020-10-13] MEDS ORDERED: HALOPERIDOL 5 MG/ML (HALDOL) VIAL IV STA (10:34)
--- NOTE | 2020-10-13 10:34 | ED Lower Extremity ---
General Chief Complaint: Lower Extremity Stated Complaint: N/V Source: patient, EMS Exam Limitations: no limitations History of Present Illness Date Seen by Provider: Oct 13, 2020 Time Seen by Provider: 10:18 Initial Comments 55-year-old female with past medical history of hypertension, chronic pain, and recent right knee replacement at the end of September coming in due to right knee pain and nausea. Per EMS, the patient has been taking oxycodone every 3 hours, and family has been slowly trying to wean her down. She states she last took oxycodone 10 mg at midnight. She says she is having a lot of nausea with vomiting. No significant abdominal pain. She says last week she was seen in an emergency department at an outside facility for similar issue. She says at that time she was also having a mild fever. She says she has not had a fever for over a week. She is fully vaccinated for Covid. She is doing rehab for her knee replacement. She is getting around. Denies any increasing swelling in her leg or history of blood clots. Has follow-up with her orthopedist within the next several days she says. She is otherwise denying any other acute complaints including any chest pain, shortness of breath, cough, diarrhea, weakness, numbness, hematuria, dysuria, or any other concerns. Allergies and Home Medications Allergies Coded Allergies: Penicillins (Verified Allergy, Unknown, 01/13/18) sulfamethoxazole (Verified Allergy, Unknown, 01/13/18) trimethoprim (Verified Allergy, Unknown, 01/13/18) Patient Home Medication List Home Medication List Reviewed: Yes Acetaminophen (Tylenol) 325 Mg Tablet, 325-650 MG PO Q6H PRN for PAIN-MILD OR TEMPATURE, (Reported) Entered as Reported by: JESU JARAMILLO on 01/14/18 1057 Aspirin (Aspirin) 81 Mg Tab.chew, 81 MG PO DAILY, (Reported) Entered as Reported by: JESU JARAMILLO on 01/14/18 1057 Bethanechol Chloride (Bethanechol Chloride) 10 Mg Tablet, 10 MG PO TID, (Reporte d) Entered as Reported by: JESU JARAMILLO on 01/14/18 1057 Clonazepam (Clonazepam) 1 Mg Tablet, 1 MG PO TID, (Reported) Entered as Reported by: JESU JARAMILLO on 01/14/18 105 Docusate Sodium (Colace) 100 Mg Capsule, 100 MG PO DAILY PRN for CONSTIPATION- 1ST LINE, (Reported) Entered as Reported by: TANIA INFANTE on 03/24/15 1605 Fentanyl (Duragesic Patch 50MCG) 1 Each Patch.td72, 50 MCG TD Q72H Prescribed by: JW SANFORD on 01/20/181939 Ferrous Sulfate (Ferrous Sulfate) 325 Mg Tablet, 325 MG PO DAILY, (Reported) Entered as Reported by: JESU JARAMILLO on 01/14/18 110 Fluoxetine HCl (Fluoxetine HCl) 40 Mg Capsule, 80 MG PO DAILY, (Reported) Entered as Reported by: JESU JARAMILLO on 01/14/18 105 Melatonin (Melatonin) 3 Mg Tablet, 3 MG PO HS PRN for SLEEP, (Reported) Entered as Reported by: JESU JARAMILLO on 01/14/18 110 Nabumetone (Nabumetone) 500 Mg Tablet, 500 MG PO BID, (Reported) Entered as Reported by: JESU JARAMILLO on 01/14/18 105 Pantoprazole Sodium (Pantoprazole Sodium) 40 Mg Tablet.dr, 40 MG PO DAILY, (Reported) Entered as Reported by: JESU JARAMILLO on 01/14/18 105 Pregabalin (Lyrica) 150 Mg Capsule, 150 MG PO TID, (Reported) Entered as Reported by: JESU JARAMILLO on 01/14/18 105 Promethazine HCl (Promethazine Tablet) 25 Mg Tablet, 25 MG PO BID PRN for NAUSEA/VOMITING-2ND LINE, (Reported) Entered as Reported by: JESU JARAMILLO on 01/14/18 105 Sumatriptan Succinate (Sumatriptan Succinate) 100 Mg Tablet, 100 MG PO UD PRN for MIGRAINE, (Reported) Entered as Reported by: JESU JARAMILLO on 01/14/18 105 [Oxycodone Hcl] 5 MG TAB, 5 MG PO Q4H PRN for PAIN-SEVERE Prescribed by: JW SANFORD on 01/20/181940 Review of Systems Constitutional: No chills, No fever EENTM: No blurred vision Respiratory: No cough, No short of breath Cardiovascular: No chest pain, No palpitations Gastrointestinal: No abdominal pain, No diarrhea; nausea, vomiting Genitourinary: No dysuria : No Musculoskeletal: joint pain Skin: No change in color, No rash Psychiatric/Neurological: Denies Anxiety, Denies Depressed All Other Systems Reviewed Negative Unless Noted: Yes Past Xyexlgv-Jfaquk-Eukxvn Hx Patient Social History Tobacco Use?: No Substance use?: No Alcohol Use?: No Immunizations Up To Date Tetanus Booster (TDap): Unknown PED Vaccines UTD: No Seasonal Allergies Seasonal Allergies: Yes Past Medical History Surgeries: Yes (SHOULDER, RIGHT HIP REPLACED/REVISION 07/2014/ HARDWEAR REMOVED 2014) Adenoidectomy, Ear Surgery, Orthopedic, Tonsillectomy, Tubal Ligation Respiratory: Yes Asthma Currently Using CPAP: No Currently Using BIPAP: No Cardiac: Yes Hypertension Neurological: Yes Headaches /Migraines, Neuropathy 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 Disorders: 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 Sexually Transmitted Disease: No HIV/AIDS: No Genitourinary: Yes Renal Failure Gastrointestinal: Yes (HEPATITIS C) Liver Disease/Jaundice, Hepatitis Musculoskeletal: Yes (SCIATICA, CHRONIC RIGHT HIP PAIN, RECURRENT RIGHT HIP DISLOCATIONS) Arthritis, Chronic Back Pain, Fractures Endocrine: No Loss of Vision: Denies Hearing Impairment: Denies Cancer: No Psychosocial: Yes (POLYSUBSTANCE ABUSE, EXTENSIVE PSYCH ISSUES) Anxiety, Personality Disorder, Depression Integumentary: Yes (MRSA) Blood Disorders: No Adverse Reaction/Blood Tranf: No Family Medical History FH: breast cancer 19 MOTHER FH: heart disease 19 FATHER Pancreatitis 19 FATHER Heart Disease Physical Exam Vital Signs Vital Signs - First Documented 10/13/20 10:16 Temp 36.2 Pulse 93 Resp 16 B/P (MAP) 150/96 (114) Pulse Ox 98 O2 Delivery Room Air Capillary Refill : Height, Weight, BMI Height: 5'8.00" Weight: 206lbs. 0.8oz. 93.654350ld; 31.3 BMI Method:Stated General Appearance: WD/WN, no apparent distress HEENT: PERRL/EOMI, normal ENT inspection, pharynx normal Neck: non-tender, full range of motion, supple, normal inspection Cardiovascular: regular rate, rhythm, no edema, no murmur Respiratory: chest non-tender, lungs clear, normal breath sounds, no respiratory distress, no accessory muscle use Gastrointestinal: normal bowel sounds, non tender, soft; No distended, No guarding, No rebound Knees: left knee non-tender, left knee normal inspection; bilateral knee normal range of motion, bilateral knee no evidence of injury; right knee other (Surgical incision on the right knee appears clean, dry, intact without evidence of infection, no redness, no significant swelling that would be expected with surgery, normal postsurgical range of motion without significant pain, no swelling or pain in the calf that would be concerning for DVT) Neurologic/Tendon: normal sensation, normal motor functions Neurologic/Psychiatric: no motor/sensory deficits, alert, normal mood/affect, oriented x 3 Skin: normal color, warm/dry Lymphatic: no adenopathy Progress/Results/Core Measures Results/Orders Lab Results Laboratory Tests Test 10/13/20 10:47 Range/Units White Blood Count 7.5 4.3-11.0 10^3/uL Red Blood Count 4.31 3.80-5.11 10^6/uL Hemoglobin 12.6 11.5-16.0 g/dL Hematocrit 38 35-52 % Mean Corpuscular Volume 88 80-99 fL Mean Corpuscular Hemoglobin 29 25-34 pg Mean Corpuscular Hemoglobin Concent 33 32-36 g/dL Red Cell Distribution Width 13.2 10.0-14.5 % Platelet Count 299 130-400 10^3/uL Mean Platelet Volume 11.5 9.0-12.2 fL Immature Granulocyte % (Auto) 0 % Neutrophils (%) (Auto) 82 H 42-75 % Lymphocytes (%) (Auto) 13 12-44 % Monocytes (%) (Auto) 3 0-12 % Eosinophils (%) (Auto) 1 0-10 % Basophils (%) (Auto) 1 0-10 % Neutrophils # (Auto) 6.2 1.8-7.8 X 10^3 Lymphocytes # (Auto) 1.0 1.0-4.0 X 10^3 Monocytes # (Auto) 0.2 0.0-1.0 X 10^3 Eosinophils # (Auto) 0.1 0.0-0.3 10^3/uL Basophils # (Auto) 0.1 0.0-0.1 10^3/uL Immature Granulocyte # (Auto) 0.0 0.0-0.1 10^3/uL Sodium Level 142 135-145 MMOL/L Potassium Level 4.2 3.6-5.0 MMOL/L Chloride Level 102 98-107 MMOL/L Carbon Dioxide Level 24 21-32 MMOL/L Anion Gap 16 H 5-14 MMOL/L Blood Urea Nitrogen 12 7-18 MG/DL Creatinine 0.78 0.60-1.30 MG/DL Estimat Glomerular Filtration Rate 77 BUN/Creatinine Ratio 15 Glucose Level 121 H 70-105 MG/DL Calcium Level 9.7 8.5-10.1 MG/DL Corrected Calcium 9.4 8.5-10.1 MG/DL Total Bilirubin 0.5 0.1-1.0 MG/DL Aspartate Amino Transf (AST/SGOT) 34 5-34 U/L Alanine Aminotransferase (ALT/SGPT) 13 0-55 U/L Alkaline Phosphatase 85 40-136 U/L Total Protein 8.6 H 6.4-8.2 GM/DL Albumin 4.4 3.2-4.5 GM/DL Lipase 24 8-78 U/L Smear Scan OK My Orders Orders - MARY LYNN MD Knee 3 View Right (10/13/20 10:22) Cbc With Automated Diff (10/13/20 10:22) Comprehensive Metabolic Panel (10/13/20 10:22) Lipase (10/13/20 10:22) Acetaminophen Tablet (Tylenol Tablet) (10/13/20 10:22) Oxycodone Immediate Rel Tablet (Oxyir Ta (10/13/20 10:30) Pregabalin Capsule (Lyrica Capsule) (10/13/20 10:30) Haloperidol Injection (Haldol Injectio (10/13/20 10:34) Medications Given in ED Current Medications Medications Dose Ordered Sig/Sai Route Start Time Stop Time Status Last Admin Dose Admin Oxycodone HCl 10 mg ONCE ONCE PO 10/13/20 10:30 10/13/20 10:31 DC 10/13/20 10:42 10 MG Vital Signs/I&O 10/13/20 10:16 Temp 36.2 Pulse 93 Resp 16 B/P (MAP) 150/96 (114) Pulse Ox 98 O2 Delivery Room Air Progress Progress Note : Progress Note 55-year-old female with above history coming in due to right knee pain that is now over 1 week postop. ABCs were intact and vitals were stable on presentation. Physical exam without any signs of infection in her knee. She has appropriate range of motion in her knee postsurgical. We will obtain an x- ray to assess for the integrity of the new knee replacement. No signs of DVT on exam. Basic labs will be obtained as well as the x-ray of her right knee. She was given her home dose of oxycodone as well as Tylenol. Nausea continued after EMS gave her Zofran so she was given Haldol for her n ausea. X-ray normal. Basic labs ordered and reassuring including normal LFTs and lipase. She has no real abdominal tenderness and I do not believe she needs a CT of her abdomen and pelvis. Repeat abdominal exam with no change and no pain. On reassessment, her pain was gone, she was smiling and thanking me and wanted to go home. I believe she is stable for discharge. She was sent home with strict return precautions. She should follow-up with orthopedist within the next couple of days. Diagnostic Imaging Diagonstic Imaging: Xray Plain Films/CT/US/NM/MRI: knee Comments X-ray right knee ordered and interpreted by me showing total knee replacement hardware in good positioning without any lucency or loosening, no effusion or signs of infection Departure Impression Primary Impression: Post-op pain Additional Impression: History of knee replacement Qualified Codes: Z96.651 - Presence of right artificial knee joint Disposition: HOME, SELF-CARE Condition: Improved Departure-Patient Inst. Decision time for Depature: 11:45 Referrals: LEBRON SHEFFIELD MD (PCP) Primary Care Physician MANI CROW (Family) Primary Care Physician Patient Instructions: Total Knee Replacement Add. Discharge Instructions: You were seen in the emergency department for pain in your right knee after having a knee replacement. We gave you your home dose of oxycodone. Please be sure to follow-up with your doctor at within the next couple days. If pain comes back or worsens please call them sooner. If you have any fever, worsening of joint swelling in your knee or redness in your knee then you will need to go to an emergency department. All discharge instructions reviewed with patient and/or family. Voiced understanding. MARY LYNN MD Oct 13, 2020 10:33
[2020-10-13 10:57] LABS: HEMATOCRIT 38 % (35-52); HEMOGLOBIN 12.6 g/dL (11.5-16.0); MEAN CORPUSCULAR HEMOGLOBIN 29 pg (25-34); MEAN CORPUSCULAR HGB CONC 33 g/dL (32-36); MEAN CORPUSCULAR VOLUME 88 fL (80-99); WHITE BLOOD COUNT 7.5 10^3/uL (4.3-11.0)
[2020-10-13 10:58] LABS: BASOPHILS # (AUTO) 0.1 10^3/uL (0.0-0.1); BASOPHILS % (AUTO) 1 % (0-10); EOSINOPHILS # (AUTO) 0.1 10^3/uL (0.0-0.3); EOSINOPHILS % (AUTO) 1 % (0-10); LYMPHOCYTES % (AUTO) 13 % (12-44); MEAN PLATELET VOLUME 11.5 fL (9.0-12.2); MONOCYTES # (AUTO) 0.2 X 10^3 (0.0-1.0); MONOCYTES % (AUTO) 3 % (0-12); NEUTROPHILS # (AUTO) 6.2 X 10^3 (1.8-7.8); NEUTROPHILS % (AUTO) 82 % (42-75); PLATELET COUNT 299 10^3/uL (130-400)
[2020-10-13 10:59] LABS: SMEAR SCAN COMMENT OK
--- NOTE | 2020-10-13 11:07 | Diagnostic Imaging Report ---
INDICATION: Right knee pain, recent knee replacement. TECHNIQUE: AP and oblique and lateral views of the right knee are obtained. COMPARISON: There is no previous study for comparison. FINDINGS: Right knee prosthesis appears in good alignment with no sign of fracture or device loosening. There is no acute bony abnormality. IMPRESSION: Well-aligned right knee prosthesis with no acute-appearing abnormality. Dictated by: Dictated on workstation # [id number]
[2020-10-13 11:37] LABS: POTASSIUM 4.2 MMOL/L (3.6-5.0)
[2020-10-13 11:38] LABS: ALBUMIN 4.4 GM/DL (3.2-4.5); BILIRUBIN,TOTAL 0.5 MG/DL (0.1-1.0); CALCIUM 9.7 MG/DL (8.5-10.1); CREATININE SERUM 0.78 MG/DL (0.60-1.30); TOTAL PROTEIN 8.6 GM/DL (6.4-8.2)
[2020-10-13 11:59] VITALS: BP 150/96
== END 2020-10-13 11:53 | disposition home or self-care (01) ==
LOC: EDUNIT# 10:14 → ER FS 10:14
DX: G89.18 Other acute postprocedural pain (principal); J45.909 Unspecified asthma, uncomplicated; I10 Essential (primary) hypertension; G43.909 Migraine, unspecified, not intractable, without status migrainosus; F41.9 Anxiety disorder, unspecified; F32.9 Major depressive disorder, single episode, unspecified; G89.29 Other chronic pain; M54.9 Dorsalgia, unspecified; Z96.651 Presence of right artificial knee joint; Z86.14 Personal history of Methicillin resistant Staphylococcus aureus infection; Z79.891 Long term (current) use of opiate analgesic; Z79.899 Other long term (current) drug therapy; Z79.82 Long term (current) use of aspirin
CPT/HCPCS: 36415; 73562; 80053; 83690; 85025

== ENCOUNTER 2022-03-24 16:44 | Emergency (ER) | payer MEDICAID ==
[~2022-03-24] VITALS: Ht 172.7 cm; Wt 63.6 kg
[2022-03-24 16:44] VITALS: BP 105/74
[~2022-03-24 16:44] MED LIST changes: +TIZA-186 PO; -TIZA4TAB4 PO
--- NOTE | 2022-03-24 16:49 | ED Lower Extremity ---
General Stated Complaint: RIGHT FOOT PAIN History of Present Illness Date Seen by Provider: Mar 24, 2022 Time Seen by Provider: 16:48 Initial Comments 57-year-old female was working out and dropped a barbell on her right foot causing pain. This occurred today. Patient is able to walk on her heel due to the pain. Allergies and Home Medications Allergies Coded Allergies: Penicillins (Verified Allergy, Unknown, 01/13/18) sulfamethoxazole (Verified Allergy, Unknown, 01/13/18) trimethoprim (Verified Allergy, Unknown, 01/13/18) Patient Home Medication List Home Medication List Reviewed: Yes Acetaminophen (Tylenol) 325 Mg Tablet, 325-650 MG PO Q6H PRN for PAIN-MILD OR TEMPATURE, (Reported) Entered as Reported by: JESU JARAMILLO on 01/14/18 105 Aspirin (Aspirin) 81 Mg Tab.chew, 81 MG PO DAILY, (Reported) Entered as Reported by: JESU JARAMILLO on 01/14/18 105 Bethanechol Chloride (Bethanechol Chloride) 10 Mg Tablet, 10 MG PO TID, (Reported) Entered as Reported by: JESU JARAMILLO on 01/14/18 105 Clonazepam (Clonazepam) 1 Mg Tablet, 1 MG PO TID, (Reported) Entered as Reported by: JESU JARAMILLO on 01/14/18 105 Docusate Sodium (Colace) 100 Mg Capsule, 100 MG PO DAILY PRN for CONSTIPATION- 1ST LINE, (Reported) Entered as Reported by: TANIA INFANTE on 03/24/15 1605 Fentanyl (Duragesic Patch 50MCG) 1 Each Patch.td72, 50 MCG TD Q72H Prescribed by: JW SANFORD on 01/20/18 194 Ferrous Sulfate (Ferrous Sulfate) 325 Mg Tablet, 325 MG PO DAILY, (Reported) Entered as Reported by: JESU JARAMILLO on 01/14/18 110 Fluoxetine HCl (Fluoxetine HCl) 40 Mg Capsule, 80 MG PO DAILY, (Reported) Entered as Reported by: JESU JARAMILLO on 01/14/18 105 Melatonin (Melatonin) 3 Mg Tablet, 3 MG PO HS PRN for SLEEP, (Reported) Entered as Reported by: JESU JARAMILLO on 01/14/18 110 Nabumetone (Nabumetone) 500 Mg Tablet, 500 MG PO BID, (Reported) Entered as Reported by: JESU JARAMILLO on 01/14/18 1057 Pantoprazole Sodium (Pantoprazole Sodium) 40 Mg Tablet.dr, 40 MG PO DAILY, (Reported) Entered as Reported by: JESU JARAMILLO on 01/14/18 105 Pregabalin (Lyrica) 150 Mg Capsule, 150 MG PO TID, (Reported) Entered as Reported by: JESU JARAMILLO on 01/14/18 105 Promethazine HCl (Promethazine Tablet) 25 Mg Tablet, 25 MG PO BID PRN for NAUSEA/VOMITING-2ND LINE, (Reported) Entered as Reported by: JESU JARAMILLO on 01/14/18 105 Sumatriptan Succinate (Sumatriptan Succinate) 100 Mg Tablet, 100 MG PO UD PRN for MIGRAINE, (Reported) Entered as Reported by: JESU JARAMILLO on 01/14/18 105 [Oxycodone Hcl] 5 MG TAB, 5 MG PO Q4H PRN for PAIN-SEVERE Prescribed by: JW SANFORD on 01/20/181940 Review of Systems Constitutional: no symptoms reported EENTM: no symptoms reported Respiratory: no symptoms reported Cardiovascular: no symptoms reported Gastrointestinal: no symptoms reported Genitourinary: no symptoms reported Musculoskeletal: muscle pain Skin: no symptoms reported Psychiatric/Neurological: No Symptoms Reported Past Pqbxpjm-Qmjvyq-Zxybvl Hx Immunizations Up To Date Tetanus Booster (TDap): Unknown PED Vaccines UTD: No First/Initial COVID19 Vaccinat: May 2020 Second COVID19 Vaccination Barrie: May 2020 Seasonal Allergies Seasonal Allergies: Yes Past Medical History Surgeries: Yes (SHOULDER, RIGHT HIP REPLACED/REVISION 07/2014/ HARDWEAR REMOVED 2014) Adenoidectomy, Ear Surgery, Orthopedic, Tonsillectomy, Tubal Ligation Respiratory: Yes Asthma Currently Using CPAP: No Currently Using BIPAP: No Cardiac: Yes Hypertension Neurological: Yes Headaches /Migraines, Neuropathy 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 Sexually Transmitted Disease: No HIV/AIDS: No Genitourinary: Yes Renal Failure Gastrointestinal: Yes (HEPATITIS C) Liver Disease/Jaundice, Hepatitis Musculoskeletal: Yes (SCIATICA, CHRONIC RIGHT HIP PAIN, RECURRENT RIGHT HIP DISLOCATIONS) Arthritis, Chronic Back Pain, Fractures Endocrine: No Loss of Vision: Denies Hearing Impairment: Denies Cancer: No Psychosocial: Yes (POLYSUBSTANCE ABUSE, EXTENSIVE PSYCH ISSUES) Anxiety, Personality Disorder, Depression Integumentary: Yes (MRSA) Blood Disorders: No Adverse Reaction/Blood Tranf: No Family Medical History FH: breast cancer 19 MOTHER FH: heart disease 19 FATHER Pancreatitis 19 FATHER Heart Disease Physical Exam Vital Signs Vital Signs - First Documented 03/24/22 16:44 Temp 35.7 Pulse 79 Resp 18 B/P (MAP) 105/74 (84) Pulse Ox 100 O2 Delivery Room Air Capillary Refill : Height, Weight, BMI Height: 5'8.00" Weight: 206lbs. 0.8oz. 93.365845wt; 26.00 BMI Method:Stated General Appearance: WD/WN, no apparent distress HEENT: PERRL/EOMI Neck: full range of motion Ankles: right ankle non-tender, right ankle normal inspection, right ankle normal range of motion, right ankle no evidence of injury Feet: right foot normal inspection, right foot normal range of motion, right foot pain, right foot soft tissue tenderness Neurologic/Psychiatric: no motor/sensory deficits, alert, normal mood/affect, oriented x 3 Skin: normal color Progress/Results/Core Measures Results/Orders My Orders Orders - АНДРЕЙ SMILEY MD Foot 3 View Right (03/24/22 16:51) Vital Signs/I&O 03/24/22 16:44 Temp 35.7 Pulse 79 Resp 18 B/P (MAP) 105/74 (84) Pulse Ox 100 O2 Delivery Room Air Progress Progress Note : Progress Note 1. RIGHT FOOT INJURY: FOOT CONTUSION - XR RIGHT FOOT: no fractures or dislocations -Advised ibuprofen/ice/elevation/ AKBAR bandage -Follow-up with Ortho clinic in the next 3 to 7 days -Advised that occasionally fractures may only appear on x-ray a week or so after the initial injury, and if pain and symptoms persist, repeat x-ray will be needed in 7 to 10 days. Diagnostic Imaging Diagonstic Imaging: Xray Plain Films/CT/US/NM/MRI: other Comments NAME: LAXMI AZUL Sonya MED REC#: [id number] PT STATUS: REG ER : 1965 PHYSICIAN: АНДРЕЙ SMILEY MD ADMIT DATE: 03/24/22/ER FS Draft Date of Exam:03/24/22 FOOT 3 VIEW RIGHT INDICATION: Foot pain and injury. FINDINGS: There is a moderate metatarsus primus varus with hallux valgus. There is no acute fracture or dislocation. Soft tissues are unremarkable. IMPRESSION: 1. Moderately severe metatarsus primus varus with hallux valgus. 2. No acute fracture or dislocation. Dictated on workstation # [id number] Dict: 03/24/22 1709 Trans: 03/24/221711 PJ [id number] Interpreted by: DAI PARKS MD Electronically signed by: Departure Impression Primary Impression: Contusion of right foot Qualified Codes: S90.31XA - Contusion of right foot, initial encounter Disposition: 01 HOME, SELF-CARE Condition: Stable Departure-Patient Inst. Referrals: JAY CANTU APRN (PCP) Primary Care Physician [facility] (Family) Primary Care Physician Patient Instructions: Minor Contusion ED Add. Discharge Instructions: -Advised ibuprofen/ice/elevation/ AKBAR bandage -Follow-up with Ortho clinic in the next 3 to 7 days -Advised that occasionally fractures may only appear on x-ray a week or so after the initial injury, and if pain and symptoms persist, repeat x-ray will be needed in 7 to 10 days. АНДРЕЙ SMILEY MD Mar 24, 2022 16:49
--- NOTE | 2022-03-24 17:12 | Diagnostic Imaging Report ---
INDICATION: Foot pain and injury. FINDINGS: There is a moderate metatarsus primus varus with hallux valgus. There is no acute fracture or dislocation. Soft tissues are unremarkable. IMPRESSION: 1. Moderately severe metatarsus primus varus with hallux valgus. 2. No acute fracture or dislocation. Dictated by: Dictated on workstation # [id number]
== END 2022-03-24 17:28 | disposition home or self-care (01) ==
LOC: EDUNIT# 16:44 → ER FS 16:47
DX: S90.31XA Contusion of right foot, initial encounter (principal); W20.8XXA Other cause of strike by thrown, projected or falling object, initial encounter
CPT/HCPCS: 73630